=== PATIENT | male | born 1965 | race Caucasian/White ===

== ENCOUNTER 2018-01-17 13:58 | Inpatient (IN) | payer OTHER ==
[~2018-01-17] VITALS: Ht 180.3 cm; Wt 92.9 kg
[~2018-01-17 13:58] MED LIST: NORCO 10-325 T1 EACH PO
--- NOTE | 2018-01-18 10:52 | EKG ---
[facility] [address] [facility] [place] [address] Signed Normal sinus rhythm Possible Left atrial enlargement Borderline ECG When compared with ECG of 24-JUL-2016 10:41, No significant change was found Confirmed by ELLIE KAPLAN MD ([id number]) on 01/18/2018 10:52:40 AM Electronically Signed By: ELLIE KAPLAN MD 01/18/18 1052 PATIENT NAME: DOUG LAWSON CHAN Electrocardiogram DATE OF : 65 PHYSICIAN: ELLIE KAPLAN MD REPORT #: [id number] REPORT IS CONFIDENTIAL AND NOT TO BE RELEASED WITHOUT AUTHORIZATION
== END 2018-01-27 12:20 | disposition home or self-care (01) | DRG 871 ==
LOC: ED 13:58 → CCU 16:20 → MS 01-20 11:02
PROVIDERS: ADMIT Internal Medicine
PROC: 05H533Z Insertion of Infusion Device into Right Subclavian Vein, Percutaneous Approach (ICD-10-PCS; principal; 2018-01-21 14:30)
DX: A41.50 Gram-negative sepsis, unspecified (principal); J18.9 Pneumonia, unspecified organism; J96.01 Acute respiratory failure with hypoxia; E87.1 Hypo-osmolality and hyponatremia; D68.9 Coagulation defect, unspecified; K70.31 Alcoholic cirrhosis of liver with ascites; E80.6 Other disorders of bilirubin metabolism; R65.20 Severe sepsis without septic shock; E83.42 Hypomagnesemia; D53.9 Nutritional anemia, unspecified
CPT/HCPCS: 36415; 36569; 36600; 51702; 71045; 71046; 71260; 76705; 80048; 80053; 80069; 80202; 81001; 81256; 82607; 82728; 82746; 82803; 83540; 83605; 83735; 83880; 84466; 84484; 85025; 85045; 85379; 85610; 85651; 86635; 86703; 86704; 86706; 86709; 86803; 87040; 87070; 87205; 87340; 87449; 87899; 93005; 93010; 94640; 94667; 94668; 94761; 94762; 94799; 96374; 96375; 99285; J0456; J0692; J2405; J2930; J2997; J3370; J3475; J7030; J7040; J7050; J7070; Q9967

== ENCOUNTER 2019-01-12 11:34 | Observation (INO) | payer OTHER ==
[~2019-01-12] VITALS: Ht 180.3 cm; Wt 90.4 kg
--- OUTSIDE RECORDS SUMMARY | ~2019-01-12 | XMS | Encounter Summary ---
Demographics + + + | Address | [address] | | | [place] [address] | + + + | Home Phone | | + + + | Preferred Language | Unknown | + + + | Marital Status | Single | + + + | Jew Affiliation | NON | + + + | Race | White | + + + | Ethnic Group | Not or | + + + Author + + + | Author | [facility] | + + + | Organization | [facility] | + + + | Address | Unknown | + + + | Phone | Unavailable | + + + Support + + +---------+ + | Name | Relationship | Address | Phone | + + +---------+ + | Rikki Pedersen | ECON | Unknown | | + + +---------+ + Care Team Providers + +------+ + | Care Traffic Engineering Director Name | Role | Phone | [...] | Alcoholic | Vimal Arita MD | [address] | | | | | hepatitis | [address] | | | | | with ascites | [address] | | | | | Procedures | [address] | Mailcode: | | | | | MRI | [place], [place] | [address] | | | | | [place] | [address] | [place] | | | | | [facility] | Phone: | Research | | | | | CONTRAST (+ | [phone] | Center | | | | | LIVER MASS) | Fax: | [place], [place] | | | | | [place] [facility], | [phone] | [address] | | | | | ABDOMEN, | | Phone: | | | | | COMBO | | [phone] | | | | | | | Fax: | | | | | | | [phone] | +--------+--------+ + + + + Diagnostic Testing (Urgent) +--------+--------+ + + + + | Status | Reason | Specialty | Diagnoses / | Referred By | Referred To | | | | | Procedures | Contact | Contact | +--------+--------+ + + + + | Closed | | Radiology | Diagnoses | [place], [facility] | | | | | Alcoholic | Vimal Arita MD | [address] | | | | | hepatitis | [address] | [address] | | | | | with ascites | [address] | [address] | | | | | Procedures | [address] | Mailcode: | | | | | MRI | [facility], [place] | [address] | | | | | [place] | [address] | [place] | | | | | [facility] | Phone: | Research | | | | | CONTRAST (+ | [phone] | Center | | | | | [place]) | Fax: | [place], [place] | | | | | [place] [facility], | [phone] | [address] | | | | | ABDOMEN, | | Phone: | | | | | COMBO | | [phone] | | | | | | | Fax: | | | | | | | [phone] | +--------+--------+ + + + + Reason [...] | Alcoholic | Vimal Arita MD | [address] | | | | | hepatitis | [address] | [address] | | | | | with ascites | [address] | [address] | | | | | Procedures | [address] | Mailcode: | | | | | MRI | [place], [place] | [address] | | | | | [place] | [address] | [place] | | | | | [facility] | Phone: | Research | | | | | CONTRAST (+ | [phone] | Center | | | | | L[place]) | Fax: | [place], [place] | | | | | [place] [facility], | [phone] | [address] | | | | | ABDOMEN, | | Phone: | | | | | COMBO | | [phone] | | | | | | | Fax: | | | | | | | [phone] | +--------+--------+ + + + + Encounter Details +--------+ + + + + | Date | Type | Department | Care Team | Description | +--------+ + + + + | 11/19/ | Hospital | Diagnostic Imaging | Vimal Crowe MD | | | 2019 | Encounter | Services at [facility] | [address] | | | | | [address] [facility] | [address] | | | | | [facility] | [place] [address] | | | | | Mailcode: [address] | [phone] | | | | | [address] | | | | | | [place], [place] | | | | | | [address] | | | | | | [phone] | | | +--------+ + + + [...] on file | | + + + as of this encounter Medications at Time of Discharge + + +-------+---------+--------+ + | Medication | Sig. | Disp. | Refills | Start | End Date | | | | | | Date | | + + +-------+---------+--------+ + | furosemide 20 mg | Take 20 mg by mouth | | | | | | oral tablet | once daily. | | | | | + + +-------+---------+--------+ + | lactulose 10 | Take by mouth. | | | | | | gram/15 mL oral | | | | | | | solution | | | | | | + + +-------+---------+--------+ + | spironolactone 50 | Take 50 mg by mouth | | | | | | mg oral tablet | once daily. | | | | | + + +-------+---------+--------+ + as of this encounter Plan of Treatment +--------+---------+ + + + | Date | Type | Specialty | Care Team | Description | +--------+---------+ + + + | 02/25/ | Office | Hepatology | Vimal Crowe MD | | | 2018 | Visit | | [address] | | | | | | [place], | | | | | | [place] [address] | | | | | | [phone] | | | | | | | | +--------+---------+ + + + | 02/25/ | Office | Nephrology | Alicia Canchola, | | | 2018 | Visit | | DO [address] | | | | | | [address] | | | | | | [place], [place] | | | | | | [address] | | | | | | [phone] | | | | | | | | +--------+---------+ + + + as of this encounter Procedures + +--------+ [...] section. | + +--------+ + + + in this encounter Results MRI [facility] CONTRAST (+ LIVER MASS) (11/19/2018 6:54 PM) + + + | Narrative | Performed [...] +---------+ + + CREATININE, POC (11/19/2018 6:06 PM) + +---------+ + + | Component | Value | Ref Range | Performed At | + +---------+ + + | CREATININE, POC | 1.5 (H) | 0.7 - 1.3 mg/dL | [facility] | | | | | [facility] | | | | | [facility] | + +---------+ + + + + | Specimen | + + | Blood - Blood | + + + + + + + | Performing | Address | City/State/Zipcode | Phone Number | | Organization | | | | + + + + + | [facility] | [address] | [place], [place] | | | [facility] | [address] | [address] | | | TESTS | | | | + + + + + in this encounter Visit Diagnoses + + | Diagnosis | + + | Alcoholic hepatitis with ascites | + + | Acute alcoholic hepatitis | + + Administered Medications + +---------+ +-------+------+------+ | Medication Order | MAR | Action | Dose | Rate | Site | | | Action | Date | | | | + +---------+ +-------+------+------+ | gadoterate meglumine (DOTAREM) | IV Push | | 17 mL | | | | 0.5 mmol/mL (376.9 mg/mL) | | 9 18:31 | | | | | injection 17 mL 17 mL (rounded | | PST | | | | | from 17.32 mL = 0.2 mL/kg | | | | | | | 86.6 kg Dosing weight), | | | | | | | intravenous, ONCE, 1 dose, Wed | | | | | | | 11/19/18 at 1900 | | | | | | + +---------+ +-------+------+------+ +---+---+ | | | +---+---+ in this encounter"
--- OUTSIDE RECORDS SUMMARY | ~2019-01-12 | XMS | Encounter Summary ---
Demographics + + + | Address | [address] | | | [place] [address] | + + + | Home Phone [...] Author + + + | Author | [facility] | + + + | Organization | [facility] | + + + | Address | Unknown | + + + | Phone | Unavailable | + + + Support + + +---------+ + | Name | Relationship | Address | Phone | + + +---------+ + | Rikki Pedersen | ECON | Unknown | | + + +---------+ + Care Team Providers + +------+ + | Care Film Writer Name | Role | Phone | + +------+ + | Sharon David MD | PCP | | + +------+ + Encounter Details +--------+------+ + + + | Date | Type | Department | Care Team | Description | +--------+------+ + + + | 11/19/ | Lab | Laboratory at [facility] | | Cirrhosis of liver | | 2019 | | 3rd Floor [address] | | without ascites, | | | | [address] [place], | | unspecified hepatic | | | | [place] [address] | | cirrhosis type | | | | [phone] | | (HCC); CKD (chronic | | | | | | kidney disease) | | | | | | stage 3, GFR 30-59 | | | | | | ml/min (HCC); | | | | | | Alcoholic hepatitis | | | | | | with ascites | +--------+------+ + + + Social History [...] + + + as of this encounter Plan of Treatment +--------+---------+ + + + | Date | Type | Specialty | Care Team | Description | +--------+---------+ + + + | 02/25/ | Office | Hepatology | Vimal Crowe MD | | | 2018 | Visit | | [address] | | | | | | [place], | | | | | | [place] [address] | | | | | | [phone] | | | | | | | | +--------+---------+ + + + | 02/25/ | Office | Nephrology | Alicia Canchola, | | | 2018 | Visit | | DO [address] | | | | | | [address] | | | | | | [place], [place] | | | | | | [address] | | | | | | [phone] | | | | | | | | +--------+---------+ + + + as of this encounter Procedures + +--------+ + + + | Procedure Name | Priori | Date/Time | Associated Diagnosis | Comments | | | ty | | | | + +--------+ + + + | PHOSPHATIDYLETHANOL | Routin | 11/19/2018 | Cirrhosis of liver | Results for this | | (PETH) | e | 4:51 PM | without ascites, | procedure are in the | | | | PST | unspecified hepatic | results section. | | | | | cirrhosis type (HCC) | | | | | | CKD (chronic | | | | | | kidney disease) | | | | | | stage 3, GFR 30-59 | | | | | | ml/min (HCC) | | | | | | Alcoholic hepatitis | | | | | | with ascites | | + +--------+ + + + | CBC (HEMOGRAM) ONLY | Routin | 11/19/2018 | Alcoholic | Results for this | | | e | 4:51 PM | hepatitis with | procedure are in the | | | | PST | ascites | results section. | + +--------+ + + + | [facility] - COMPLETE | Urgent | 11/19/2018 | Alcoholic | Results for this | | METABOLIC SET | | 4:51 PM | hepatitis with | procedure are in the | | | | PST | ascites | results section. | + +--------+ + + + | INR | Routin | 11/19/2018 | Alcoholic | Results for this | | | e | 4:51 PM | hepatitis with | procedure are in the | | | | PST | ascites | results section. | + +--------+ + + + | RENAL FUNCTION SET | Routin | 11/19/2018 | Cirrhosis of liver | Results for this | | (NA,K,CL,CO2,BUN,CRE | e | 4:51 PM | without ascites, | procedure are in the | | AT,GLUC,CA,PHOS,ALB | | PST | unspecified hepatic | results section. | | ) | | | cirrhosis type (HCC) | | | | | | CKD (chronic | | | | | | kidney disease) | | | | | | stage 3, GFR 30-59 | | | | | | ml/min (HCC) | | + +--------+ + + + | CBC ONLY | Routin | 11/19/2018 | Alcoholic | Results for this | | | e | 4:51 PM | hepatitis with | procedure are in the | | | | PST | ascites | results section. | + +--------+ + + + | FERRITIN | Routin | 11/19/2018 | Alcoholic | Results for this | | | e | 4:51 PM | hepatitis with | procedure are in the | | | | PST | ascites | results section. | + +--------+ + + + | IRON AND TIBC, SERUM | Routin | 11/19/2018 | Alcoholic | Results for this | | | e | 4:51 PM | hepatitis with | procedure are in the | | | | PST | ascites | results section. | + +--------+ + + + in this encounter Results PHOSPHATIDYLETHANOL (PETH) (11/19/2018 4:51 PM) + + + + + | Component | Value | Ref Range | Performed At | + + + + + | PHOSPHATIDYLETHANOL | NEGATIVEComment: | NEGATIVE ng/mL | [facility] | | (PETH) | Analyzed compound: PEth | | [facility] - | | | 16:0/18:1.8-qwdlsayid-0- | | [facility] | | | [id number]-phos | | | | | phoethanol.Analysis | | | | | performed by Liquid | | | | | Chromatography | | | | | withTandem Mass | | | | | Spectrometry | | | | | (LC/MS/MS).Detection | | | | | limit: 20 ng/mLPEth | | | | | levels in excess of 20 | | | | | ng/mL are considered | | | | | evidenceof moderate to | | | | | heavy ethanol | | | | | consumption. However, | | | | | the [facility] for Substance | | | | | Abuse Treatment (CSAT) | | | | | advisescaution in | | | | | interpretation and use | | | | | of biomarkers aloneto | | | | | assess alcohol | | | | | use. Results should | | | | | be interpretedin the | | | | | context of all available | | | | | clinical and | | | | | behavioralinformation.Re | | | | | ference: Substance | | | | | Abuse and Mental Health | | | | | ServicesAdministration | | | | | (2012). "The Role of | | | | | Biomarkers in | | | | | theTreatment of Alcohol | | | | | Use Disorders", 2012 | | | | | Revision.Advisory, | | | | | Volume 11, Issue 2.This | | | | | test was developed and | | | | | its performance | | | | | characteristicsdetermine | | | | | d by [employer]. It has not | | | | | been cleared or | | | | | approvedby the Food and | | | | | Drug | | | | | Administration.Performed | | | | | at: [facility] [address] | | | | | [facility] | | | | | [place] [address] | | | + + + + + + + | Specimen | + + | Blood - Blood | + + + + + + + | Performing | Address | City/State/Zipcode | Phone Number | | Organization | | | | + + + + + | [facility] | [address] | [place], [place] | | | [facility] | | [id number] | | + + + + + CBC (HEMOGRAM) ONLY (11/19/2018 4:51 PM) + + + + + | Component | Value | Ref Range | Performed At | + + + + + | WHITE CELL COUNT | 5.42 | 3.50 - 10.80 K/cu mm | [facility] | | | | | SERVICES, CORE | + + + + + | RED CELL COUNT | 2.28 (L) | 4.50 - 6.00 M/cu mm | [facility] | | | | | SERVICES, CORE | + + + + + | HEMOGLOBIN | 7.6 (L) | 13.5 - 17.5 g/dL | [facility] | | | | | SERVICES, CORE | + + + + + | HEMATOCRIT | 21.9 (L) | 41.0 - 53.0 % | [facility] | | | | | SERVICES, CORE | + + + + + | MCV | 96.1 | 80.0 - 100.0 fL | [facility] | | | | | SERVICES, CORE | + + + + + | MCHC | 34.7 | 32.0 - 36.0 g/dL | [facility] | | | | | SERVICES, CORE | + + + + + | RDW SD | 68.3 (H) | 35.1 - 46.3 fL | [facility] | | | | | SERVICES, CORE | + + + + + | PLATELET COUNT | 56 (L)Comment: Giant | 150 - 400 K/cu mm | [facility] | | | platelets present. | | SERVICES, CORE | | | Macroplatelets present. | | | + + + + + | MPV | 9.7 | 9.7 - 12.3 fL | [facility] | | | | | SERVICES, CORE | + + + + + | NRBC% | 0.0 | 0.0 - 0.3 % | [facility] | | | | | SERVICES, CORE | + + + + + | NRBC# | 0.00 | 0.00 - 0.02 K/cu mm | [facility] | | | | | SERVICES, CORE | + + + + + + + | Specimen | + + | Blood - Blood | + + + + + + + | Performing | Address | City/State/Zipcode | Phone Number | | Organization | | | | + + + + + | [facility] | [address] | [place] [address] | | | SERVICES, CORE | [address] | | | + + + + + [facility] - COMPLETE METABOLIC SET (11/19/2018 4:51 PM) + + + + + | Component | Value | Ref Range | Performed At | + + + + + | GLUCOSE, PLASMA | 133 (H) | 70 - 99 mg/dL | [facility] | | (LAB) | | | SERVICES, CORE | + + + + + | BUN, PLASMA (LAB) | 58 (H) | 6 - 20 mg/dL | [facility] | | | | | SERVICES, CORE | + + + + + | CREATININE PLASMA | 1.26 | 0.70 - 1.30 mg/dL | [facility] | | (LAB) | | | SERVICES, CORE | + + + + + | EGFR - | >60 | >60 mL/min | [facility] | | [facility] | | | SERVICES, CORE | + + + + + | EGFR NON | 60 (L) | >60 mL/min | [facility] | | -MACEDONIAN | | | CLAUDIA, CORE | + + + + + | SODIUM, PLASMA (LAB) | 129 (L) | 136 - 145 mmol/L | [facility] | | | | | SERVICES, CORE | + + + + + | POTASSIUM, PLASMA | 5.0 | 3.4 - 5.0 mmol/L | [facility] | | (LAB) | | | SERVICES, CORE | + + + + + | CHLORIDE, PLASMA | 96 (L) | 97 - 108 mmol/L | [facility] | | (LAB) | | | SERVICES, CORE | + + + + + | TOTAL CO2, PLASMA | 26 | 21 - 32 mmol/L | [facility] | | (LAB) | | | SERVICES, CORE | + + + + + | CALCIUM, PLASMA | 9.8 | 8.6 - 10.2 mg/dL | [facility] | | (LAB) | | | SERVICES, CORE | + + + + + | CALCIUM(ALB | 10.4 (H) | 8.6 - 10.2 mg/dL | [facility] | | CORRECTED) | | | SERVICES, CORE | + + + + + | BILIRUBIN TOTAL | 15.7 (H) | 0.3 - 1.2 mg/dL | [facility] | | | | | SERVICES, CORE | + + + + + | TOTAL PROTEIN, | 8.4 (H) | 6.4 - 8.2 g/dL | [facility] | | PLASMA (LAB) | | | SERVICES, CORE | + + + + + | ALBUMIN, PLASMA | 3.2 (L) | 3.5 - 4.7 g/dL | [facility] | | (LAB) | | | SERVICES, CORE | + + + + + | ALK PHOS | 186 (H) | 53 - 128 U/L | [facility] | | | | | SERVICES, CORE | + + + + + | AST(SGOT) | 89 (H) | <=41 U/L | [facility] | | | | | SERVICES, CORE | + + + + + | ALT (SGPT) | 49 | <=60 U/L | [facility] | | | | | SERVICES, CORE | + + + + + | ANION GAP | 7 | 4 - 11 mmol/L | [facility] | | | | | SERVICES, CORE | + + + + + | ANION GAP(ALB | 9 | 4 - 11 mmol/L | [facility] | | CORRECTED) | | | SERVICES, CORE | + + + + + | POTASSIUM CMNT | No Hemo | | [facility] | | | | | SERVICES, CORE | + + + + + | BILI T CMNT | No Hemo | | [facility] | | | | | SERVICES, CORE | + + + + + | AST CMNT | No Hemo | | [facility] | | | | | SERVICES, CORE | + + + + + + + | Specimen | + + | Blood | + + + + + | Narrative | Performed At | + + + | GFR is estimated using the MDRD equation recommended by the | [facility] | | National Kidney Disease Education Program. Estimated GFR | LABORATORY | | Interpretive Information: <60 mL/min/1.73 sq | SERVICES, CORE | | m Chronic Kidney Disease <15 mL/min/1.73 | | | sq m Kidney Failure Estimated GFR greater | | | than 60 mL/min/1.73 sq m is of limited clinical value. The MDRD | | | equation is not valid in the following situations: - Patients under | | | 18 years of age - Severe malnutrition or obesity - Vegetarian diet | | | - Rapidly changing kidney function - Amputees, paraplegics, or other | | | muscle-wasting diseses | | + + + + + + + + | Performing | Address | City/State/Zipcode | Phone Number | | Organization | | | | + + + + + | [facility] | [address] | [place] [address] | | | [address] | [address] | | | + + + + + IRON AND TIBC (11/19/2018 4:51 PM) + +---------+ + + | Component | Value | Ref Range | Performed At | + +---------+ + + | IRON | 210 (H) | 50 - 170 ug/dL | [facility] | | | | | CLA[facility] CORE | + +---------+ + + | IRON BIND CAP | 209 (L) | 240 - 450 ug/dL | [facility] | | | | | [facility] | + +---------+ + + | % SATURATION | 100 (H) | 20 - 50 % | [facility] | | TRANSFERRIN, | | | SERVICES, CORE | + +---------+ + + + + | Specimen | + + | Blood - Blood | + + + + + + + | Performing | Address | City/State/Zipcode | Phone Number | | Organization | | | | + + + + + | [facility] | [address] | [place] [address] | | | SERVICES, ARTIS | [address] | | | + + + + + FERRITIN (11/19/2018 4:51 PM) + + + + + | Component | Value | Ref Range | Performed At | + + + + + | FERRITIN | 3,882 (H)Comment: Male | 50 - 200 ng/mL | [facility] | | | and Female >18 years: | | SERVICES, CORE | | | <20 | | | | | ng/mL: | | | | | Consistant with iron | | | | | deficiency 21-50 | | | | | ng/mL: Possible | | | | | iron deficiency | | | | | 51-99 ng/mL: | | | | | Iron deficiency unlikely | | | | | unless inflammation | | | | | present | | | | | or | | | | | patien | | | | | t >65 years of age | | | | | 100-200 ng/mL: | | | | | Normal, not consistent | | | | | with iron | | | | | deficiency >200 | | | | | ng/mL: If | | | | | transferrin saturation | | | | | >45%, consider | | | | | hemochromatosis | | | + + + + + + + | Specimen | + + | Blood - Blood | + + + + + + + | Performing | Address | City/State/Zipcode | Phone Number | | Organization | | | | + + + + + | [facility] | [address] | [place] [address] | | | [address] | [address] | | | + + + + + INR (11/19/2018 4:51 PM) + + + + + | Component | Value | Ref Range | Performed At | + + + + + | INR | 2.55 (H) | 0.90 - 1.20 INR | [facility] | | | | | [address] | + + + + + + + | Specimen | + + | Blood - Blood | + + + + + | Narrative | Performed At | + + + | INR Therapeutic ranges for full anticoagulation: INR for | [facility] | | Venous Thromboembolism (2.0 - 3.0) INR INR | LABORATORY | | for most patients with mech. valves (2.5 - 3.5) INR | SERVICES, CORE | + + + + + + + + | Performing | Address | City/State/Zipcode | Phone Number | | Organization | | | | + + + + + | [facility] | [address] | [place] [address] | | | SERVICES, CORE | [address] | | | + + + + + RENAL FUNCTION SET (NA,K,CL,CO2,BUN,CREAT,GLUC,CA,PHOS,ALB ) (11/19/2018 4:51 PM) + + + + + | Component | Value | Ref Range | Performed At | + + + + + | GLUCOSE, PLASMA | 134 (H) | 70 - 99 mg/dL | [facility] | | (LAB) | | | SERVICES, CORE | + + + + + | BUN, PLASMA (LAB) | 60 (H) | 6 - 20 mg/dL | [facility] | | | | | SERVICES, CORE | + + + + + | CREATININE PLASMA | 1.32 (H) | 0.70 - 1.30 mg/dL | [facility] | | (LAB) | | | SERVICES, CORE | + + + + + | EGFR - | >60 | >60 mL/min | [facility] | | [facility] | | | CLAUDIA, CORE | + + + + + | EGFR NON | 57 (L) | >60 mL/min | [facility] | | -MACEDONIAN | | | CLAUDIA, CORE | + + + + + | SODIUM, PLASMA (LAB) | 129 (L) | 136 - 145 mmol/L | [facility] | | | | | CLAUDIA, CORE | + + + + + | POTASSIUM, PLASMA | 5.0 | 3.4 - 5.0 mmol/L | [facility] | | (LAB) | | | SERVICES, CORE | + + + + + | CHLORIDE, PLASMA | 95 (L) | 97 - 108 mmol/L | [facility] | | (LAB) | | | SERVICES, CORE | + + + + + | TOTAL CO2, PLASMA | 26 | 21 - 32 mmol/L | [facility] | | (LAB) | | | SERVICES, CORE | + + + + + | CALCIUM, PLASMA | 9.7 | 8.6 - 10.2 mg/dL | [facility] | | (LAB) | | | SERVICES, CORE | + + + + + | CALCIUM(ALB | 10.3 (H) | 8.6 - 10.2 mg/dL | [facility] | | CORRECTED) | | | SERVICES, CORE | + + + + + | ALBUMIN, PLASMA | 3.2 (L) | 3.5 - 4.7 g/dL | [facility] | | (LAB) | | | SERVICES, CORE | + + + + + | PHOSPHORUS, PLASMA | 5.1 (H) | 2.4 - 4.7 mg/dL | [facility] | | (LAB) | | | SERVICES, [facility] | + + + + + | POTASSIUM CMNT | No Hemo | | [facility] | | | | | [facility] | + + + + + | ANION GAP | 8 | 4 - 11 mmol/L | [facility] | | | | | SERVICES, [facility] | + + + + + | ANION GAP(ALB | 10 | 4 - 11 mmol/L | [facility] | | CORRECTED) | | | [facility] | + + + + + + + | Specimen | + + | Blood - Blood | + + + + + | Narrative | Performed At | + + + | GFR is estimated using the MDRD equation recommended by the | [facility] | | National Kidney Disease Education Program. Estimated GFR | LABORATORY | | Interpretive Information: <60 mL/min/1.73 sq | SERVICES, CORE | | m Chronic Kidney Disease <15 mL/min/1.73 | | | sq m Kidney Failure Estimated GFR greater | | | than 60 mL/min/1.73 sq m is of limited clinical value. The MDRD | | | equation is not valid in the following situations: - Patients under | | | 18 years of age - Severe malnutrition or obesity - Vegetarian diet | | | - Rapidly changing kidney function - Amputees, paraplegics, or other | | | muscle-wasting diseses | | + + + + + + + + | Performing | Address | City/State/Zipcode | Phone Number | | Organization | | | | + + + + + | [facility] | [address] | [place] [address] | | | SERVICES, CORE | [address] | | | + + + + + in this encounter Visit Diagnoses + + | Diagnosis | + + | Cirrhosis of liver without ascites, unspecified hepatic cirrhosis type (HCC) | + + | CKD (chronic kidney disease) stage 3, GFR 30-59 ml/min (HCC) | + + | Chronic kidney disease, Stage III (moderate) | + + | Alcoholic hepatitis with ascites | + + | Acute alcoholic hepatitis | + +
--- OUTSIDE RECORDS SUMMARY | ~2019-01-12 | XMS | Encounter Summary ---
Demographics + + + | Address | [address] | | | [place] [address] | + + + | Home Phone [...] Author + + + | Author | [facility] | + + + | Organization | [facility] | + + + | Address | Unknown | + + + | Phone | Unavailable | + + + Support + + +---------+ + | Name | Relationship | Address | Phone | + + +---------+ + | Rikki Pedersen | ECON | Unknown | | + + +---------+ + Care Team Providers + +------+ + | Care Non Destructive Evaluation Specialist Name | Role | Phone | + +------+ + | Sharon David MD | PCP | | + +------+ + Encounter Details +--------+ + + + + | Date | Type | Department | Care Team | Description | +--------+ + + + + | 11/19/ | Procedure | Diagnostic Imaging | | | | 2018 | Pass | Services at [facility] | | | | | | [address] [facility] | | | | | | [facility] | | | | | | Mailcode: [id number] | | | | | | [place] [facility] | | | | | | [place], [place] | | | | | | [address] | | | | | | [phone] | | | +--------+ + + + [...] | | | | | [address] [place], | | | | | | [place] [address] | | | | | | [phone] | | | | | | | | +--------+---------+ + + + | 02/25/ | Office | Nephrology | Alicia Canchola, | | | 2018 | Visit | | DO [address] | | | | | | [address] | | | | | | [place] | | | | | | [address] | | | | | | [phone] | | | | | | | | +--------+---------+ + + + as of this encounter Visit Diagnoses Not on filein this encounter"
--- OUTSIDE RECORDS SUMMARY | ~2019-01-12 | XMS | Clinical Summary ---
Demographics + + + | Address | [address] | | | [place] [address] | + + + | Home Phone | | + + + | Preferred Language | Unknown | + + + | Marital Status | Single | + + + | Anabaptist Affiliation | Unknown | + + + | Race | Unknown | + + + | Ethnic Group | Unknown | + + + Author + + + | Author | [facility] | + + + | Organization | [facility] [facility] | + + + | Address | Unknown | + + + | Phone | Unavailable | + + + Support + + +---------+ + | Name | Relationship | Address | Phone | + + +---------+ + | Kavya Langley | ECON | Unknown | | + + +---------+ + Care Team Providers + +------+ + | Care Conference Reservationist Name | Role | Phone | + +------+ + | Sharon David MD | PP | | + +------+ + Allergies + + + + + + | Active Allergy | Reactions | Severity | Noted | Comments | | | | | Date | | + + + + + + | Doxycycline | Hives | High | 07/17/20 | | | | | | 18 | | + + + + + + Current Medications + + +---------+---------+------+------+-------+ | Prescription | Sig. | Disp. | Refills | Star | End | Statu | | | | | | t | Date | s | | | | | | Date | | | + + +---------+---------+------+------+-------+ | | Take 1 tablet by | 30 | 0 | 10/0 | | Activ | | HYDROcodone-acetamin | mouth every 4 (four) | tablet | | 4/20 | | e | | ophen (NORCO) 5-325 | hours as needed. | | | 18 | | | | MG per tablet | | | | | | | + + +---------+---------+------+------+-------+ | furosemide (LASIX) | Take 1 tablet by | 60 | 11 | 10/0 | 10/0 | Activ | | 20 MG tablet | mouth Two times | tablet | | 4/20 | 4/20 | e | | | daily. | | | 18 | 19 | | + + +---------+---------+------+------+-------+ | midodrine | Take 1 tablet by | 60 | 0 | 10/0 | | Activ | | (PROAMATINE) 5 MG | mouth 2 (two) times | tablet | | 4/20 | | e | | tablet | daily for 30 days. | | | 18 | | | + + +---------+---------+------+------+-------+ | cephALEXin | Take 1 capsule by | 56 | 0 | 10/0 | | Activ | | (KEFLEX) 250 MG | mouth 4 (four) times | capsule | | 4/20 | | e | | capsuleIndications: | daily. | | | 18 | | | | Intra-Abdominal | | | | | | | | Infection | | | | | | | + + +---------+---------+------+------+-------+ + + + + +------+------+-------+ | Hospital, Clinic, or | Ordered | Route | Frequency | Star | End | Statu | | Other Facility | Dose | | | t | Date | s | | Administered | | | | Date | | | | Medication | | | | | | | + + + + +------+------+-------+ | sodium chloride | | IV | Continuous | 10/1 | | Activ | | 0.9 % | | | | 6/20 | | e | | infusionIndications: | | | | 18 | | | | Macrocytic anemia, | | | | | | | | Thrombocytopenia | | | | | | | | (HCC) | | | | | | | + + + + +------+------+-------+ | sodium chloride | 10 mL | IK | PRN | 10/1 | | Activ | | 0.9 % flush 10 | | | | 6/20 | | e | | mLIndications: | | | | 18 | | | | Macrocytic anemia, | | | | | | | | Thrombocytopenia | | | | | | | | (HCC) | | | | | | | + + + + +------+------+-------+ | heparin flush (PF) | 500 Units | IK | PRN | 10/1 | | Activ | | 100 unit/mL | | | | 6/20 | | e | | injection 500 | | | | 18 | | | | UnitsIndications: | | | | | | | | Macrocytic anemia, | | | | | | | | Thrombocytopenia | | | | | | | | (HCC) | | | | | | | + + + + +------+------+-------+ | lidocaine (PF) 2 % | 10 mL | INFILTRA | PRN | 10/1 | | Activ | | injection 10 | | TION | | 6/20 | | e | | mLIndications: | | | | 18 | | | | Macrocytic anemia, | | | | | | | | Thrombocytopenia | | | | | | | | (HCC) | | | | | | | + + + + +------+------+-------+ | heparin (porcine) | 1000 | OTHER | PRN | 10/1 | | Activ | | 1000 UNIT/ML | Units | | | 6/20 | | e | | injection 1,000 | | | | 18 | | | | UnitsIndications: | | | | | | | | Macrocytic anemia, | | | | | | | | Thrombocytopenia | | | | | | | | (HCC) | | | | | | | + + + + +------+------+-------+ | diphenhydrAMINE | 25 mg | IV | Every 4 Hours PRN | 10/1 | | Activ | | (BENADRYL) injection | | | | 6/20 | | e | | 25 mgIndications: | | | | 18 | | | | Macrocytic anemia, | | | | | | | | Thrombocytopenia | | | | | | | | (HCC) | | | | | | | + + + + +------+------+-------+ | ondansetron | 4 mg | IV | Every 6 Hours PRN | 10/1 | | Activ | | (ZOFRAN) injection 4 | | | | 6/20 | | e | | mgIndications: | | | | 18 | | | | Macrocytic anemia, | | | | | | | | Thrombocytopenia | | | | | | | | (HCC) | | | | | | | + + + + +------+------+-------+ | flumazenil | 0.2 mg | IV | Once PRN | 10/1 | | Activ | | (ROMAZICON) | | | | 6/20 | | e | | injection 0.2 | | | | 18 | | | | mgIndications: | | | | | | | | Macrocytic anemia, | | | | | | | | Thrombocytopenia | | | | | | | | (HCC) | | | | | | | + + + + +------+------+-------+ | midazolam (VERSED) | 0.5-1 mg | IV | Every 5 Min PRN | 10/1 | | Activ | | injection 0.5-1 | | | | 6/20 | | e | | mgIndications: | | | | 18 | | | | Macrocytic anemia, | | | | | | | | Thrombocytopenia | | | | | | | | (HCC) | | | | | | | + + + + +------+------+-------+ Active Problems + + + | Problem | Noted Date | + + + | Splenomegaly | 07/21/2018 | + + + | Pulmonary hypertension (moderate/severe) | 07/19/2018 | + + + | Alcoholic cirrhosis of liver with ascites (HCC) | 07/17/2018 | + + + | Abnormal blood coagulation profile | 07/17/2018 | + + + | ETOH abuse | 07/17/2018 | + + + | Hyperbilirubinemia | 07/17/2018 | + + + | Macrocytic anemia | 07/17/2018 | + + + | Thrombocytopenia (HCC) | 07/17/2018 | + + + | Hyponatremia | 07/17/2018 | + + + | Multiple open wounds of lower leg | 07/17/2018 | + + + | KAR (acute kidney injury) (HCC) | 07/17/2018 | + + + Immunizations + + + + | Name | Dates Previously Given | Next Due | + + + + | Pneumococcal | 07/18/2018 (Deferred: - patient not ready | | | Polysaccharide | to take at this time.) | | | 23-valent | | | + + + + Social History + +-------+ +--------+------+ | Tobacco Use | Types | Packs/Day | Years | Date | | | | | Used | | + +-------+ +--------+------+ | Never Smoker | | | | | + +-------+ +--------+------+ + +---+---+---+ | Smokeless Tobacco: | | | | | Current User | | | | + +---+---+---+ + + | Tobacco Cessation: Ready to Quit: No | | Comments: pt reports "1 chew a day." | + + + + +---------+ + | Alcohol Use | Drinks/We | oz/Week | Comments | | | ek | | | + + +---------+ + | Yes | | | 1 beer or 1 mixed drink per day. "I used to | | | | | drink a couple beers 2-3 a day." | + + +---------+ + + + + | Sex Assigned at | Date Recorded | | | | + + + | Not on file | | + + + Last Filed Vital Signs + + + + | Vital Sign | Reading | Time Taken | + + + + | Blood Pressure | 160/60 | 09/15/2018 10:36 AM PST | + + + + | Pulse | 93 | 09/15/2018 10:36 AM PST | + + + + | Temperature | 36.6 C (97.8 F) | 09/15/2018 10:36 AM PST | + + + + | Respiratory Rate | 18 | 09/15/2018 10:36 AM PST | + + + + | Oxygen Saturation | 100% | 09/15/2018 10:36 AM PST | + + + + | Inhaled Oxygen | - | - | | Concentration | | | + + + + | Weight | 103 kg (227 lb) | 09/15/2018 10:36 AM PST | + + + + | Height | 177.2 cm (5' 9.75") | 09/15/2018 10:36 AM PST | + + + + | Body Mass Index | 32.81 | 09/15/2018 10:36 AM PST | + + + + Plan of Treatment +--------+---------+ + + + | Date | Type | Specialty | Care Team | Description | +--------+---------+ + + + | 03/18/ | Office | | Diego Ferrell MD | | | 2019 | Visit | | [address] | | | | | | [place] | | | | | | [phone] | | | | | | | | | | | | [place], | | | | | | [employer] [address] | | | | | | [address] | | | | | | [place] [address] | | | | | | [phone] | | | | | | | | +--------+---------+ + + + + + + + + | Health Maintenance | Due Date | Last Done | Comments | + + + + + | Vaccine: | | | | | Dtap/Tdap/Td (1 - | 4 | | | | Tdap) | | | | + + + + + | Vaccine: | | | | | Pneumococcal 19-64 | 4 | | | | (PPSV23 only) Medium | | | | | Risk (1 of 1 - | | | | | PPSV23) | | | | + + + + + | Vaccine: Zoster (1 | | | | | of 2) | 5 | | | + + + + + | Vaccine: Influenza | | | | | (#1) | 8 | | | + + + + + | Colon Cancer | | 07/20/2018 | | | Screening | 8 | | | | (Colonoscopy) | | | | + + + + + Results Not on filefrom Last 3 Months Insurance + +--------+ +------+-------+ + | Payer | Benefi | Subscriber | Type | Phone | Address | | | t Plan | ID | | | | | | / | | | | | | | Group | | | | | + +--------+ +------+-------+ + | MEDICAID | [place] | [id number] | | | [address] | | | [place] | | | | [place] | | | [place] | | | | [address] | | | IRS AGENT | | | | | + +--------+ +------+-------+ + + +--------+ +--------+ + + | Guarantor Name | Accoun | Relation to | Date | Phone | Billing Address | | | t Type | Patient | of | | | | | | | | | | + +--------+ +--------+ + + | STEFFEN LAWSON | Person | Self [birth year] Home: | [address] | | | al/Fam | | 1965 | [phone] [place] | | | moi | | | [phone] | [place] [address] | + +--------+ +--------+ + +
--- OUTSIDE RECORDS SUMMARY | ~2019-01-12 | XMS | Encounter Summary ---
Demographics + + + | Address | [address] | | | [place] [address] | + + + | Home Phone [...] Author + + + | Author | [facility] | + + + | Organization | [facility] | + + + | Address | Unknown | + + + | Phone | Unavailable | + + + Support + + +---------+ + | Name | Relationship | Address | Phone | + + +---------+ + | Rikki Pedersen | ECON | Unknown | | + + +---------+ + Care Team Providers + +------+ + | Care Industrial Staff Nurse Name | Role | Phone | [...] | | | | | MRI | [place], [place] | [address] | | | | | [place] | [address] | [place] | | | | | PHY [facility] | Phone: | Research | | | | | CONTRAST (+ | [phone] | Center | | | | | [place]) | Fax: | [place], [place] | | | | | [facility], | [phone] | [address] | | | | | ABDOMEN, | | Phone: | | | | | COMBO | | [phone] | | | | | | | Fax: | | | | | | | [phone] | +--------+--------+ + + + + Diagnostic Testing (Routine) + +--------+ + + + + | Status | Reason | Specialty | Diagnoses / | Referred By | Referred To | | | | | Procedures | Contact | Contact | + +--------+ + + + + | New Request | | Radiology | Diagnoses | [place], | | | | | | Alcoholic | Vimal Arita MD | | | | | | hepatitis | [address] | | | | | | with ascites | [address] | | | | | | Procedures | [address] | | | | | | MRI | [place], [place] | | | | | | [place] | [address] | | | | | | PHY [facility]WO | Phone: | | | | | | CONTRAST (+ | [phone] | | | | | | [place]) | Fax: | | | | | | | [phone] | | + +--------+ + + + + Reason for Visit + + + | Reason | Comments | + + + | New patient | | | consultation | | + + + Consultation (Routine) + +--------+ + + + + | Status | Reason | Specialty | Diagnoses / | Referred By | Referred To | | | | | Procedures | Contact | Contact | + +--------+ + + + + | Authorized | | Hepatology | Diagnoses | David, | [place], | | | | | Cirrhosis | [place] | Vimal Arita MD | | | | | of liver | MD Lei | [address] | | | | | (HCC) | [facility] | [address] | | | | | | Hospital | [place], | | | | | | [address] | [place] [address] | | | | | | [address] | Phone: | | | | | | [place], | [phone] | | | | | | [place] [address] | Fax: | | | | | | Phone: | [phone] | | | | | | [phone] | | | | | | | Fax: | | | | | | | [phone] | | + +--------+ + + + + Encounter Details +--------+---------+ + + + | Date | Type | Department | Care Team | Description | +--------+---------+ + + + | 11/19/ | Office | Digestive Health | Vimal Crowe MD | Alcoholic hepatitis | | 2019 | Visit | Center at [facility]th | [address] | with ascites | | | | Floor [address] | [address] [place], | (Primary Dx) | | | | Ave Mailcode: [address] | [place] [address] | | | | | [facility] | [phone] | | | | | and Healing, 6th | | | | | | Floor [place], [place] | | | | | | [address] | | | | | | [phone] | | | +--------+---------+ + + + [...] + + + as of this encounter Last Filed Vital Signs + + + + | Vital Sign | Reading | Time Taken | + + + + | Blood Pressure | 158/67 | 11/19/2018 3:14 PM PST | + + + + | Pulse | 78 | 11/19/2018 3:14 PM PST | + + + + | Temperature | 36.3 C (97.4 F) | 11/19/2018 3:14 PM PST | + + + + | Respiratory Rate | - | - | + + + + | Oxygen Saturation | - | - | + + + + | Inhaled Oxygen | - | - | | Concentration | | | + + + + | Weight | 86.6 kg (191 lb) | 11/19/2018 3:14 PM PST | + + + + | Height | 180.3 cm (5' 11") | 11/19/2018 3:14 PM PST | + + + + | Body Mass Index | 26.64 | 11/19/2018 3:14 PM PST | + + + + in this encounter Instructions Patient Instructions - Vimal Crowe MD - 11/19/2018 3:15 PM PST1. Labs today on or 2. MRI/MRCP ordered 3. Follow up renal recs- diuretics per renal 4. Continue complete alcohol abstinence and recommend joining [facility] Progress Notes Vimal Crowe MD - 11/19/2018 3:15 PM PSTFormatting of this note may be different from t he original. HEPATOLOGY NEW PATIENT VISIT 11/19/[address] [facility] [address] [place] [address]: [phone] RE: Steffen Duran : [address] David: I had the pleasure of seeing Steffen Duran for consultation in the [facility] at [facility] today. History and physical examination was performed. [...] Warmest regards. 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 operator [facility] Hepatologyin this encounter Plan of Treatment +--------+---------+ + + + | Date | Type | Specialty | Care Team | Description | +--------+---------+ + + + | 02/25/ | Office | Hepatology | Vimal Crowe MD | | | 2018 | Visit | | [address] | | | | | | [address] [place], | | | | | | [place] [address] | | | | | | [phone] | | | | | | | | +--------+---------+ + + + | 02/25/ | Office | Nephrology | Alicia Canchola, | | | 2018 | Visit | | DO [address] | | | | | | [address] | | | | | | [place], [place] | | | | | | [address] | | | | | | [phone] | | | | | | | | +--------+---------+ + + + + +--------+ + + | Name | Priori | Associated Diagnoses | Order Schedule | | | ty | | | + +--------+ + + | MRI [place] CONTRAST | Routin | Alcoholic | Expected: | | (+ [place]) | e | hepatitis with | 11/19/2018, Expires: | | | | ascites | 12/19/2019 | + +--------+ + + as of this encounter Results MRI [place] [...] | | | + +---------+ + + [facility] - COMPLETE METABOLIC SET (11/19/2018 4:51 PM) [...] (H) | 6 - 20 mg/dL | [facility] | | | | | SERVICES, CORE | + + + + + | CREATININE PLASMA | 1.26 | 0.70 - 1.30 mg/dL | [facility] | | (LAB) | | | SERVICES, CORE | + + + + + | EGFR - | >60 | >60 mL/min | [facility] | | [place] | | | [place], [facility] | + + + + + | EGFR NON | 60 (L) | >60 mL/min | [facility] | | -[place] | | | [facility], [facility] | + + + + + | [...] AST CMNT | No Hemo | | [facility] | | | | | SERVICES, CORE | + + + + + + + | Specimen | + + | Blood | + + + + + | Narrative | Performed At | + + + | GFR is estimated using the MDRD equation recommended by the | [facility] | | National Kidney Disease Education Program. [...] | + + + + + | [facility] | [address] | [place] [address] | | | [place] | [address] [...] SERVICES, CORE | + +---------+ + + | IRON BIND CAP | 209 (L) | 240 - 450 ug/dL | [facility] | | | | | SERVICES, CORE | + +---------+ + + | % [...] | [facility] | [address] [facility] | [place] [address] | | | SERVICES, CORE | [address] | | | + + + + + FERRITIN (11/19/2018 4:51 PM) + + + + + | Component | Value | Ref Range | Performed At | + + + + + | FERRITIN | 3,882 (H)Comment: Male | 50 - 200 ng/mL | [facility] | | | and Female >18 [...] | + + + + + | [facility] | [address] | [place] [address] | | | SERVICES, ARTIS | [address] | | | + + + + + INR (11/19/2018 4:51 PM) + + + + + | Component | Value | Ref Range | Performed At | + + + + + | INR | 2.55 (H) | 0.90 - 1.20 INR | [facility] | | | | | SERVICES, CORE | + + + + + + + | Specimen | + + | Blood - Blood | + + + + + | Narrative | Performed At | + + + | INR Therapeutic ranges for full anticoagulation: INR for | [facility] | | Venous Thromboembolism (2.0 - 3.0) INR INR | LABORATORY | | for most patients with mech. valves (2.5 - 3.5) INR | [facility] | + + + + + + + + | Performing | Address | City/State/Zipcode | Phone Number | | Organization | | | | + + + + + | [facility] | [address] | [place] [address] | | | [place] | [address] | | | + + + + + in this encounter Visit Diagnoses + + | Diagnosis | + + | Alcoholic hepatitis with ascites - Primary | + + | Acute alcoholic hepatitis | + +
--- OUTSIDE RECORDS SUMMARY | ~2019-01-12 | XMS | Clinical Summary ---
Demographics + + + | Address | [address] | | | [place] [address] | + + + | Home Phone [...] Team Providers + +------+ + | Care Experimental Box Tester Name | Role | Phone | + +------+ + | Sharon David MD | PP | | + +------+ + Source Comments [facility] is fully live on both [facility] and [facility] InPatient.Formerly [facility] Allergies + + + + + + | Active Allergy | Reactions | Severity | Noted | Comments | | | | | Date | | + + + + + + | Doxycycline | Rash | | 11/19/19 | | | | | | 19 | | + + + + + + Current Medications + + +-------+---------+------+------+-------+ | Prescription | Sig. | Disp. | Refills | Star | End | Statu | | | | | | t | Date | s | | | | | | Date | | | + + +-------+---------+------+------+-------+ | furosemide 20 mg | Take 20 mg by mouth | | | | | Activ | | oral tablet | once daily. | | | | | e | + + +-------+---------+------+------+-------+ | lactulose 10 | Take by mouth. | | | | | Activ | | gram/15 mL oral | | | | | | e | | solution | | | | | | | + + +-------+---------+------+------+-------+ | spironolactone 50 | Take 50 mg by mouth | | | | | Activ | | mg oral tablet | once daily. | | | | | e | + + +-------+---------+------+------+-------+ Active Problems Not on file Encounters +--------+ + + + + | Date | Type | Specialty | Care Team | Description | +--------+ + + + + | 12/24/ | MyChart | | Vimal Crowe MD | RE: MRI Results | | 2018 | Encounter | | | | +--------+ + + + + | 12/03/ | Documentati | | Alicia Canchola, | | | 2018 | on | | DO | | +--------+ + + + + | 11/19/ | Hospital | | Vimal Crowe MD | | | 2018 | Encounter | | | | +--------+ + + + + | 11/19/ | Lab | | | Cirrhosis of liver | | 2018 | | | | without ascites, | | | | | | unspecified hepatic | | | | | | cirrhosis type | | | | | | (HCC); CKD (chronic | | | | | | kidney disease) | | | | | | stage 3, GFR 30-59 | | | | | | ml/min (HCC); | | | | | | Alcoholic hepatitis | | | | | | with ascites | +--------+ + + + + | 11/19/ | Office | | Vimal Crowe MD | Alcoholic hepatitis | | 2019 | Visit | | | with ascites | | | | | | (Primary Dx) | +--------+ + + + + | 11/19/ | Office | | Alicia Canchola, | Chronic kidney | | 2018 | Visit | | DO | disease (CKD), stage | | | | | | IV (severe) (HCC) | | | | | | (Primary Dx); | | | | | | Cirrhosis of liver | | | | | | without ascites, | | | | | | unspecified hepatic | | | | | | cirrhosis type | | | | | | (HCC); CKD (chronic | | | | | | kidney disease) | | | | | | stage 3, GFR 30-59 | | | | | | ml/min (HCC) | +--------+ + + + + | 11/19/ | Procedure | | | | | 2019 | Pass | | | | +--------+ + + [...] Saturation | 100% | 11/19/2018 12:59 PM PST | + + + + [...] PM PST | + + + + Plan of Treatment +--------+---------+ + + + | Date | Type | Specialty | Care Team | Description | +--------+---------+ + + + | 02/25/ | Office | | Vimal Crowe MD | | | 2018 | Visit | | [address] | | | | | | [place], | | | | | | [place] [address] | | | | | | [phone] | | | | | | | | +--------+---------+ + + + | 02/25/ | Office | | Alicia Canchola, | | | 2018 | Visit | | DO [address] | | | | | | [address] | | | | | | [place], [place] | | | | | | [address] | | | | | | [phone] | | | | | | | | +--------+---------+ + + + + + + + + | Health Maintenance | Due Date | Last Done | Comments | + + + + + | Pneumococcal (Adult) | | | | | (1 of 3 - PCV13) | 4 | | | + + + + + | Influenza (Flu) | | | | | vaccination (#1) | 8 | | | + [...] POC | | PST | IV (severe) ([facility]) | results section. | + +--------+ + + + | PROTEIN, URINE | Routin | 11/19/2018 | Chronic kidney | Results for this | | | e | 1:55 PM | disease (CKD), stage | procedure are in the | | | | PST | IV (severe) ([facility]) | results section. | + +--------+ + + + | CREATININE, URINE | Routin | 11/19/2018 | Chronic kidney | Results for this | | | e | 1:55 PM | disease (CKD), stage | procedure are in the | | | | PST | IV (severe) ([facility]) | results section. | + +--------+ + + + from Last 3 Months Results MRI CHOLANGIOGRAPHY WWO CONTRAST (+ LIVER [...] [facility] | | | | | [facility] [place] [facility] | | | | | CARE TESTS | + +---------+ + + + + | Specimen | + + | Blood - Blood | + + + + + + + | Performing | Address | City/State/Zipcode | Phone Number | | Organization | | | | + + + + + | [facility] | [address] | [place], [place] | | | [place] [facility] | [address] | [address] | | | TESTS | | | | + + + + + PHOSPHATIDYLETHANOL (PETH) (11/19/2018 4:51 PM) + + + + + | Component | Value | Ref Range | Performed At | + + + + + | PHOSPHATIDYLETHANOL | NEGATIVEComment: | NEGATIVE ng/mL | [facility] | | (PET) | Analyzed compound: PEth | | [facility] - | | | 16:0/18:1.5-xflcvznbs-1- | | [facility] | | | eyauut-zw-ckicufe-3-phos | | | | | phoethanol.Analysis | [...] | | | | at: [facility] [address] | | | | | [facility] | | | | | [place] [address] | | | + + + + + + + | Specimen | + + | Blood - Blood | + + + + + + + | Performing | Address | City/State/Zipcode | Phone Number | | Organization | | | | + + + + + | [facility] | [address] | [place], [place] | | | [facility] | | [address] | | + + + + + CBC (HEMOGRAM) ONLY (11/19/2018 4:51 PM) + + + + + | Component | Value | Ref Range | Performed At | + + + + + | WHITE CELL COUNT | 5.42 | 3.50 - 10.80 K/cu mm | [facility] | | | | | SERVICES, CORE | + + + + + | RED CELL COUNT | 2.28 (L) | 4.50 - 6.00 M/cu mm | [facility] | | | | | SERVICES, CORE | + + + + + | HEMOGLOBIN | 7.6 (L) | 13.5 - 17.5 g/dL | [facility] | | | | | SERVICES, CORE | + + + + + | HEMATOCRIT | 21.9 (L) | 41.0 - 53.0 % | [facility] | | | | | SERVICES, CORE | + + + + + | MCV | 96.1 | 80.0 - 100.0 fL | [facility] | | | | | SERVICES, CORE | + + + + + | MCHC | 34.7 | 32.0 - 36.0 g/dL | [facility] | | | | | SERVICES, CORE | + + + + + | RDW SD | 68.3 (H) | 35.1 - 46.3 fL | [facility] | | | | | SERVICES, CORE | + + + + + | PLATELET COUNT | 56 (L)Comment: Giant | 150 - 400 K/cu mm | [facility] | | | platelets present. | | SERVICES, CORE | | | Macroplatelets present. | | | + + + + + | MPV | 9.7 | 9.7 - 12.3 fL | [facility] | | | | | SERVICES, CORE | + + + + + | NRBC% | 0.0 | 0.0 - 0.3 % | [facility] | | | | | SERVICES, CORE | + + + + + | NRBC# | 0.00 | 0.00 - 0.02 K/cu mm | [facility] | | | | | SERVICES, CORE | + + + + + + + | Specimen | + + | Blood - Blood | + + + + + + + | Performing | Address | City/State/Zipcode | Phone Number | | Organization | | | | + + + + + | [facility] | [address] | [place] [address] | | | SERVICES, CORE | [address] | | | + + + + + [facility] - COMPLETE METABOLIC SET (11/19/2018 4:51 PM) + + + + + | Component | Value | Ref Range | Performed At | + + + + + | GLUCOSE, PLASMA | 133 (H) | 70 - 99 mg/dL | [facility] | | (LAB) | | | CLAUDIA, CORE | + [...] >60 mL/min | [facility] | | UGANDAN | | | SERVICES, CORE | + + + + + | EGFR NON | 60 (L) | >60 mL/min | [facility] | | -UGANDAN | | | SERVICES, CORE | + [...] LABORATORY | | (LAB) | | | CLAUDIA, CORE | + + + + + | CALCIUM, PLASMA | 9.8 | 8.6 - 10.2 mg/dL | [facility] | | (LAB) | | | CLAUDIA, CORE | + [...] POTASSIUM CMNT | No Hemo | | [facility] | | | | | SERVICES, CORE | + + + + + | BILI T CMNT | No Hemo | | [facility] | | | | | SERVICES, CORE | + + + + + | AST CMNT | No Hemo | | [facility] | | | | | SERVICES, CORE | + + + + + + + | Specimen | + + | Blood | + + + + + | Narrative | Performed At | + + + | GFR is estimated using the MDRD equation recommended by the | [facility] | | National Kidney Disease Education Program. [...] | + + + + + | [facility] | [address] | [place] [address] | | | SERVICES, CORE | [address] | | | + + + + + INR (11/19/2018 4:51 PM) + + + + + | Component | Value | Ref Range | Performed At | + + + + + | INR | 2.55 (H) | 0.90 - 1.20 INR | [facility] | | | | [...] | + + + + + | [facility] | [address] | [place] [address] | | | SERVICES, CORE | [address] [...] LABORATORY | | (LAB) | | | CLAUDIA, CORE | + + + + + | EGFR - | >60 | >60 mL/min | [facility] | | [place] | | | CLAUDIA, CORE | + + + + + | EGFR NON | 57 (L) | >60 mL/min | [facility] | | -UGANDAN | | | CLAUDIA, CORE | + [...] | | (LAB) | | | SERVICES, [facility] | + + + + + | PHOSPHORUS, PLASMA | 5.1 (H) | 2.4 - 4.7 mg/dL | [facility] | | (LAB) | | | [facility] | + + + + + | POTASSIUM CMNT | No Hemo | | [facility] | | | | | SERVICES, [facility] | + + + + + | ANION GAP | 8 | 4 - 11 mmol/L | [facility] | | | | | SERVICES, [facility] | + + + + + | ANION GAP(ALB | 10 | 4 - 11 mmol/L | [facility] | | CORRECTED) | | | SERVICES, CORE | + + + + + + + | Specimen | + + | Blood - Blood | + + + + + | Narrative | Performed At | + + + | GFR is estimated using the MDRD equation recommended by the | [facility] | | National Kidney Disease Education Program. [...] | + + + + + | [facility] | [address] | [place] [address] | | | ARTIS TAY[address]OR | [address] | | | + + + + + FERRITIN (11/19/2018 4:51 PM) + + + + + | Component | Value | Ref Range | Performed At | + + + + + | FERRITIN | 3,882 (H)Comment: Male | 50 - 200 ng/mL | [facility] | | | and Female [...] | + + + + + | [facility] | [address] | [place] [address] | | | SERVICES, ARTIS | [address] | | | + + + + + IRON AND TIBC (11/19/2018 4:51 PM) + +---------+ + + | Component | Value | Ref Range | Performed At | + +---------+ + + | IRON | 210 (H) | 50 - 170 ug/dL | [facility] | | | | | SERVICES, CORE | + +---------+ + + | IRON BIND CAP | 209 (L) | 240 - 450 ug/dL | [facility] | | | | | SERVICES, CORE | + +---------+ + + | % SATURATION | 100 (H) | 20 - 50 % | [facility] | | TRANSFERRIN, | | | SERVICES, CORE | + +---------+ + + + + | Specimen | + + | Blood - Blood | + + + + + + + | Performing | Address | City/State/Zipcode | Phone Number | | Organization | | | | + + + + + | [facility] | [address] | [place] [address] | | | SERVICES, ARTIS | [address] | | | + + + + + UA 10 DIP, POC (11/19/2018 1:56 PM) + + + + + | Component | Value | Ref Range | Performed At | + + + + + | COLOR (UA DIP), POC | Yudy | | [facility] | | | | | [facility] [facility] [facility] | | | | | CARE TESTS | + + + + + | APPEARANCE (UA DIP), | Other | | [facility] | | POC | | | [facility] [facility] | | | | | CARE TESTS | + + + + + | LEUKOCYTES (UA DIP), | Negative | Negative | [facility] | | POC | | | [facility] [facility] | | | | | CARE TESTS | + + + + + | NITRITES (UA DIP), | Negative | Negative | [facility] | | POC | | | [facility] POINT OF | | | | | CARE TESTS | + + + + + | UROBILINOGEN (UA | 1.0 | 0.2 - 1.0 E.U./dL | [facility] | | DIP), POC | | | [facility] POINT OF | | | | | CARE TESTS | + + + + + | PROTEIN (UA DIP), | Negative | Neg - Trace mg/dL | [facility] | | POC | | | [facility] | | | | | CARE TESTS | + + + + + | PH (UA DIP), POC | 5.5 | 5.0 - 8.0 | [facility] | | | | | [facility] [facility] [facility] | | | | | CARE TESTS | + + + + + | BLOOD (UA DIP), POC | Large (A) | Negative | [facility] | | | | | [facility] POINT OF | | | | | CARE TESTS | + + + + + | SPECIFIC GRAVITY (UA | 1.010 | 1.005 - 1.030 | [facility] | | DIP), POC | | | [facility] POINT OF | | | | | CARE TESTS | + + + + + | KETONES (UA DIP), | Negative | Negative mg/dL | [facility] | | POC | | | [facility] POINT OF | | | | | CARE TESTS | + + + + + | BILIRUBIN (UA DIP), | Negative | Negative | [facility] | | POC | | | [facility] POINT OF | | | | | CARE TESTS | + + + + + | GLUCOSE (UA DIP), | Negative | Negative - Trace | [facility] | | POC | | mg/dL | [facility] | | | | | CARE TESTS | + + + + + + + | Specimen | + + | Urine - Urine | + + + + + + + | Performing | Address | City/State/Zipcode | Phone Number | | Organization | | | | + + + + + | [facility] | [address] | [place], [place] | | | [facility] CARE | [address] | [address] | | | TESTS | | | | + + + + + PROTEIN, URINE (11/19/2018 1:55 PM) + + + + + | Component | Value | Ref Range | Performed At | + + + + + | PROTEIN CONC URINE | 6 | mg/dL | [facility] | | | | | SERVICES, CORE | + + + + + | PROTEIN/CREATININE | 0.13 (H) | <0.10 mg/mg | [facility] | | RATIO | | | [facility] | + + + + + | URINE INTERVAL | Random | | [facility] | | | | | SERVICES, CORE | + + + + + | URINE VOLUME | Spot | | [facility] | | | | | SERVICES, CORE | + + + + + + + | Specimen | + + | Urine - Urine | + + + + + | Narrative | Performed At | + + + | Protein Reference Range: 50-80 mg/24hrAt Rest <150 | [facility] | | mg/24hrAmbulatory, normal level of physical activity <250 | LAB[facility]ATORY | | mg/24hrStrenuous physical activity Normal values based on 24 [...] [facility] | [address] | [place] [address] | | | SERVICESARTIS | [address] | | | + + + + + CREATININE, URINE (11/19/2018 1:55 PM) + +--------+ + + | Component | Value | Ref Range | Performed At | + +--------+ + + | CREATININE CONC UR | 46.40 | mg/dL | [facility] | | | | | SERVICES CORE | + +--------+ + + | URINE INTERVAL | Random | | [facility] | | | | | SERVICESARTIS | + +--------+ + + | URINE VOLUME | Spot | | [facility] | | | | | SERVICES, CORE | + +--------+ + + + + | Specimen | + + | Urine - Urine | + + + + + [...] | + + + + + | [facility] | [address] | [place] [address] | | | SERVICES, CORE | [address] | | | + + + + + from Last 3 Months Insurance + +--------+ +--------+-------+---------+ | Payer | Benefi | Subscriber | Type | Phone | Address | | | t Plan | ID | | | | | | / | | | | | | | Group | | | | | + +--------+ +--------+-------+---------+ | [employer] | [employer] | xxxxxxxx | Medica | | | | | [place] | | id | | | | | [place] | | | | | + +--------+ +--------+-------+---------+ + +--------+ +--------+ + + | Guarantor Name | Accoun | Relation to | Date | Phone | Billing Address | | | t Type | Patient | of | | | | | | | | | | + +--------+ +--------+ + + | DOUG LAWSON | Person | Self [birth year] | Home: | [address] | | | al/Fam | | 1965 | [phone] [address]ef[address] | | | moi | | | [phone] | [place] [id number] | + +--------+ +--------+ + +
--- OUTSIDE RECORDS SUMMARY | ~2019-01-12 | XMS | Encounter Summary ---
Demographics + + + | Address | [address] | | | [place] [address] | + + + | Home Phone [...] Author + + + | Author | [facility] | + + + | Organization | [facility] | + + + | Address | Unknown | + + + | Phone | Unavailable | + + + Support + + +---------+ + | Name | Relationship | Address | Phone | + + +---------+ + | Rikki Pedersen | ECON | Unknown | | + + +---------+ + Care Team Providers + +------+ + | Care Shoulder Boner Name | Role | Phone | + +------+ + | Sharon David MD | PCP | | + +------+ + Encounter Details +--------+ + + + + | Date | Type | Department | Care Team | Description | +--------+ + + + + | 12/03/ | Documentati | Nephrology & | Alicia Canchola, | | | 2019 | on | Hypertension at [facility] | DO [address] | | | | | [address] | [address] | | | | | [facility] | [place], [place] | | | | | Mailcode: [id number] | [address] | | | | | [place], | [phone] | | | | | [address] | | | | | | [place], [place] | | | | | | [address] | | | | | | [phone] | | | +--------+ + + + [...] | | | | | [address] [facility] | | | | | | [place] [address] | | | | | | [phone] | | | | | | | | +--------+---------+ + + + | 02/25/ | Office | Nephrology | Alicia Canchola, | | | 2019 | Visit | | DO [address] | | | | | | [address] | | | | | | [place], [place] | | | | | | [address] | | | | | | [phone] | | | | | | | | +--------+---------+ + + + as of this encounter Visit Diagnoses Not on filein this encounter"
--- OUTSIDE RECORDS SUMMARY | ~2019-01-12 | XMS | Encounter Summary ---
Demographics + + + | Address | [address] | | | [place] [address] | + + + | Home Phone [...] Author + + + | Author | [facility] | + + + | Organization | [facility] | + + + | Address | Unknown | + + + | Phone | Unavailable | + + + Support + + +---------+ + | Name | Relationship | Address | Phone | + + +---------+ + | Rikki Pedersen | ECON | Unknown | | + + +---------+ + Care Team Providers + +------+ + | Care Glass Cleaning Machine Tender Name | Role | Phone | [...] | 2019 | Encounter | Center at [facility] | [address] | | | | | Floor [address] | [address] [place], | | | | | Ave Mailcode: [address] | [place] [address] | | | | | [facility] | [phone] | | | | | and Healing, 6th | | | | | | Floor [place], [place] | | | | | | [address] | | | | | | [phone] | | | +--------+ + + + [...] | | | | | [address] [place], | | | | | | [place] [address] | | | | | | [phone] | | | | | | | | +--------+---------+ + + + | 02/25/ | Office | Nephrology | Alicia Canchola, | | | 2018 | Visit | | DO [address] | | | | | | [address] | | | | | | [place], [place] | | | | | | [address] | | | | | | [phone] | | | | | | | | +--------+---------+ + + + as of this encounter Visit Diagnoses Not on filein this encounter"
--- OUTSIDE RECORDS SUMMARY | ~2019-01-12 | XMS | Encounter Summary ---
Demographics + + + | Address | [address] | | | [place] [address] | + + + | Home Phone [...] Author + + + | Author | [facility] | + + + | Organization | [facility] | + + + | Address | Unknown | + + + | Phone | Unavailable | + + + Support + + +---------+ + | Name | Relationship | Address | Phone | + + +---------+ + | Rikki Pedersen | ECON | Unknown | | + + +---------+ + Care Team Providers + +------+ + | Care Plug Assembler Name | Role | Phone | + +------+ + | Sharon David MD | PCP | | + +------+ + Reason for Visit + + + | Reason | Comments | + + + | New patient | CKD in the setting of Liver cirrhosis and chronic anemia | | consultation | | + + + Intake Referral (Urgent) + +--------+ + + + + | Status | Reason | Specialty | Diagnoses / | Referred By | Referred To | | | | | Procedures | Contact | Contact | + +--------+ + + + + | Authorized | | Nephrology | Diagnoses | David, | Nht Nephro | | | | | Chronic | Lohith | Ppv [address] | | | | | kidney | MD Lei | [address] | | | | | disease, | [facility] | [facility] | | | | | stage 3 | Hospital | Mailcode: | | | | | (moderate) | [address] | | | | | [address] | Physicians | | | | | | [place], | [place], | | | | | | [place] [address] | [address] | | | | | | Phone: | [place], [place] | | | | | | [phone] | [address] | | | | | | Fax: | Phone: | | | | | | [phone] | [phone] | | | | | | | Fax: | | | | | | | [phone] | + +--------+ + + + + [...] disease (CKD), stage | | | | [address] | [address] | IV (severe) (HCC) | | | | [facility] | [place], [place] | (Primary Dx); | | | | Mailcode: [address]262 | [address] | Cirrhosis of liver | | | | Physicians [place], | [phone] | without ascites, | | | | [address] | | unspecified hepatic | | | | [place], [place] | | cirrhosis type | | | | [address] | | (HCC); CKD (chronic | | | | [phone] | | kidney disease) | | | [...] Pressure | 124/54 | 11/19/2018 12:59 PM PST | + + + + | Pulse | 84 | 11/19/2018 12:59 PM PST | + + + + | Temperature | 36.3 C (97.3 F) | 11/19/2018 12:59 PM PST | + [...] (191 lb 4.8 | 11/19/2018 12:59 PM PST | | | oz) | | + + + + | Height | 180.3 cm (5' 11") | 11/19/2018 12:59 PM PST | + + + + | Body Mass Index | 26.68 | 11/19/2018 12:59 PM PST | + + + + in this encounter Instructions Patient Instructions - Alicia Canchola DO - 11/19/2018 1:00 PM PSTLabs today: UA with microscopic and dip UPC today Renal profile Labs in 2 weeks Follow up in 3 months. in this encounter Progress Notes Alicia Canchola DO - 11/19/2018 1:00 PM PSTFormatting of this note may be different from the original. [facility] Division of Nephrology and Hypertension Clinic Note [...] melissa l not be a candidate for HAND FLESHER. Patient verbalized understanding as well as family. Addendum: got a called from hepatology if ok to do MRI with ROXANNA. Based on his recent GFR, h jayce should be ok to received ROXANNA. If [...] 30,000 her hematology Followed by Dr Quevedo ([facility]) Hyponatremia: Hypervolemic hyponatremia. Na: 131; Potasium; 4.7 (Nov 17 2018) Increase lasix 20 mg BID Repeat renal panel in 2 weeks. Alicia Canchola DO, 11/19/2018 Patient seen and staffed with attending of record, Dr. Jarrett Thank you for this consultation. Please feel free to contact me with any questions or comme nts you might have. NEPHROLOGY & HYPERTENSION AT [facility] [address] [facility] Mailcode: [address] [place] [address] Chief Complaint:No chief complaint on file. 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 He lives in [facility] [place] away from [place]. He lives by himself and has sister and m other who have been the support system but fly from [place] back and forth to check on him. [...] Exercise: No Caffeine: yes frequency: Worked on [employer] for years Surgical History: None Family History: Cancer Grandmother: Stomach cancer Prostate Hospitalization/Major Diagnostic Procedure: adapted from PCP note. SAH: Multi Lobar pneumonia with acute respiratory Failure with hypoxia with severe sepsis. Incidental diagnosis of liver cirrhosis [facility]: Severe anemia. Acute kidney injury. 6 units of pRBCs. Splenic sequestratio n 07/17-07/24/18 [facility]: EGD and colonoscopy: no signs of bleeding. Echocardiogram.: primary hypert ension with right ventricular enlargement. Lasix 20 BID. Vasculitis work up negative. Venous ulcers changed to Keflex. Creatinine 1.6. [facility]: US abdomen-Liver steatosis. Right pleural effusion. [...] 7.5 x 20.8 cm. Associated attestation - Jarrett, Ayaan, MD - 11/20/2018 10:43 AM PSTI personally [...] proteinuria on previous UA FU 3 m in this encounter Plan of Treatment +--------+---------+ + + + | Date | Type | Specialty | Care Team | Description | +--------+---------+ + + + | 02/25/ | Office | Hepatology | Vimal Crowe MD | | | 2018 | Visit | | [address] | | | | | | [address], | | | | | | [place] [address] | | | | | | [phone] | | | | | | | | +--------+---------+ + + + | 02/25/ | Office | Nephrology | Alicia Canchola, | | | 2019 | Visit | | DO [address] [facility] | | | | | | [facility] | | | | | | [place], [place] | | | | | | [address] | | | | | | [phone] | | | | | | | | +--------+---------+ + + + + +--------+ + + | Name | Priori | Associated Diagnoses | Order Schedule | | | ty | | | + +--------+ + + | RENAL FUNCTION SET | Routin | Cirrhosis of liver | Expected: 12/03/2018 | | (NA,K,CL,CO2,BUN,CREAT,GLUC,CA,PH | e | without ascites, | (Approximate), | | OS,ALB ) | | unspecified hepatic | Expires: 12/19/2019 | | | | cirrhosis type (HCC) | | | | | CKD (chronic | | | | | kidney disease) | | | | | stage 3, GFR 30-59 | | | | | ml/min (HCC) | | + +--------+ + + | SODIUM TOTAL, URINE | Routin | Cirrhosis of liver | Expected: 11/19/2018 | | | e | without ascites, | (Approximate), | | | | unspecified hepatic | Expires: 12/19/2019 | | | | cirrhosis type (HCC) | | | | | CKD (chronic | | | | | kidney disease) | | | | | stage 3, GFR 30-59 | | | | | ml/min (HCC) | | + +--------+ + + as of this encounter Procedures [...] POC | | PST | IV (severe) ([facility]) | results section. | + +--------+ + + + | PROTEIN, URINE | Routin | 11/19/2018 | Chronic kidney | Results for this | | | e | 1:55 PM | disease (CKD), stage | procedure are in the | | | | PST | IV (severe) ([facility]) | results section. | + +--------+ + + + | CREATININE, URINE | Routin | 11/19/2018 | Chronic kidney | Results for this | | | e | 1:55 PM | disease (CKD), stage | procedure are in the | | | | PST | IV (severe) ([facility]) | results section. | + +--------+ + + + in this encounter Results RENAL FUNCTION SET [...] >60 mL/min | [facility] | | SUDANESE | | | SERVICES, CORE | + + + + + | EGFR NON | 57 (L) | >60 mL/min | [facility] | | -SUDANESE | | | SERVICES, CORE | + [...] the MDRD equation recommended by the | [facility] | | National Kidney Disease Education Program. [...] | + + + + + | [facility] | [address] [facility] | [place] [address] | | | [facility] | [address] | | | + + + + + UA 10 DIP, POC (11/19/2018 1:56 PM) + + + + + | Component | Value | Ref Range | Performed At | + + + + + | COLOR (UA DIP), POC | [facility] | | [facility] | | | [...] | Negative - Trace | [facility] | | POC | | mg/dL | [...] [facility] | [address] | [place], [place] | | | [facility] | [address] | [address] | | | TESTS | | | [...] LABORATORY | | RATIO | | | CLAUD[facility], CORE | + [...] + + | [facility] | [address] [facility] | [place] [address] | | | [facility] | [address] | | | + + + + + CREATININE, URINE (11/19/2018 1:55 PM) + +--------+ + + | Component | Value | Ref Range | Performed At | + +--------+ + + | CREATININE CONC UR | 46.40 | mg/dL | [facility] | | | | | [facility] | + +--------+ + + | URINE INTERVAL | Random | | [facility] | | | | | SERVICES, CORE | + +--------+ + + | [...] | + + + + + | [employer] | [address] | [place] [address] | | | SERVICES, CORE | [address] | | | + + + + + in this encounter Visit Diagnoses + + | Diagnosis | + + | Chronic kidney disease (CKD), stage IV (severe) (HCC) - Primary | + + | Chronic kidney disease, Stage IV (severe) | + + | Cirrhosis of liver without ascites, unspecified hepatic cirrhosis type (HCC) | + + | CKD (chronic kidney disease) stage 3, GFR 30-59 ml/min (HCC) | + + | Chronic kidney disease, Stage III (moderate) | + +
[~2019-01-12 11:34] MED LIST changes: +CONSTULOSE10 GM/15 M PO; +FUROSEMIDE40 MG PO; +KLOR-CON M2020 MEQ PO; +LASIX80 MG PO; +SPIRONOLACTONE100 MG PO
--- NOTE | 2019-01-12 15:00 | NUR ---
PT HAS ARRIVED TO CCU INTO ROOM 126 VIA WHEELCHAIR A M/S STATUS PATIENT AT THIS TIME. PT ARRIVES ORIENTED BUT DROWSY. SOMEWHAT GARBLED SPEECH BUT ABLE TO ANSWER ORIENTATION QUESTIONS. PT JAUNDICED WITH ICTERIC EYES; PITTING EDEMA THROUGHOUT WELL ASCITES/DISTENDED ABDOMEN. DENIES ANY PAIN, N/V OR SOB.
--- NOTE | 2019-01-12 15:15 | NUR ---
DR. KAPLAN AT THE BEDSIDE SEEING THE PT.
--- NOTE | 2019-01-12 15:50 | NUR ---
20 GAUGE PIV PLACED IN LEFT FOREARM BY THIS RN WITHOUT COMPLICATION- FLUSHES WELL WITH GOOD BLOOD RETURN.
--- NOTE | 2019-01-12 17:00 | NUR ---
PRE BLOOD TRANSFUSION VS COMPLETED AND STABLE. ALL TRANSFUSION CHECK OFF ITEMS COMPLETE. BLOOD VERIFIED WITH 2ND RN- BLOOD STARTED AT 1700.
--- NOTE | 2019-01-12 17:15 | NUR ---
15 MINUTE VS STABLE IS PT'S CONDITION. IV SITE REMAINS WNL AND BLOOD TRANSFUSING WITHOUT ANY COMPLICATION. WILL CONTINUE TO CLOSELY MONITOR. HE DENIES ANY PAIN, SOB OR ANY OTHER SIGN OF REACTION.
--- NOTE | 2019-01-12 18:17 | NUR ---
PT SITTING UP EATING HIS DINNER. BLOOD CONTINUES TO TRANSFUSE WITHOUT ISSUES INTO HIS LEFT PIV. HE DENIES ANY NEEDS AT THIS TIME. CALL LIGHT WITHIN REACH. WILL CONTINUE TO MONITOR.
--- NOTE | 2019-01-12 18:55 | NUR ---
PT HAS EATEN 100% OF HIS DINNER. BLOOD CONTINUES TO TRANSFUSE AT THIS TIME. PT RESTING IN BED WITH EYES CLOSED. CALL LIGHT WITHIN REACH. BED ALARM TURNED ON. WILL CONTINUE TO MONITOR.
--- NOTE | 2019-01-12 19:30 | NUR ---
SHIFT REPORT RECEIVED FROM JAYDE FERNANDEZ. PT IS CURRENTLY SITTING UP IN BED AND WATCHING TV. BLOOD CURRENTLY INFUSING WNL, IV SITE AND DRESSING INTACT. PT DENIES NEEDS AT THIS TIME, CALL LIGHT WITHIN REACH.
--- NOTE | 2019-01-12 19:50 | NUR ---
FIRST UNIT OF PRBC'S COMPLETED, NO S/SX OF TRANSFUSION REACTION NOTED, VITAL SIGNS STABLE. PT UP TO SIDE OF BED, VOIDED 500ML KYRA URINE IN URINAL. PT DENIES DIZZINESS UPON STANDING. 4+ PITTING EDEMA NOTED IN BLE. SKIN APPEARS JAUNDICE, OTHERWISE ASSESSMENT IS BENIGN. CALL LIGHT REMAINS WITHIN REACH.
--- NOTE | 2019-01-12 20:55 | NUR ---
ATTEMPTED TO GET 2ND UNIT OF PRBC'S AT 1999, BUT THERE WAS AN ERROR ON THE SLIP AND SO THE PLANT TOUR GUIDE NEEDED TO PREPARE A NEW UNIT. 2ND UNIT STARTED AT 2039. THIS RN REMAINED IN ROOM FOR THE FIRST 15 MINUTES, NO S/SX OF TRANSFUSION REACTION. VITAL SIGNS STABLE. PT DENIES NEEDS AT THIS TIME. WILL CONTINUE TO MONITOR.
--- NOTE | 2019-01-12 23:50 | NUR ---
2ND UNIT OF PRBC'S COMPLETED AT 2318. 3RD UNIT STARTED AT 2335. THIS RN REMAINS AT BEDSIDE UNTIL THIS TIME, 15 MINUTE VITAL SIGNS STABLE, NO S/SX OF TRANSFUSION REACTION OBSERVED. ASSESSMENT COMPLETED, NO CHANGES. PT PROVIDED WITH FRESH ICE WATER, JELLO, AND A COOKIE PER REQUEST. URINAL EMPTIED OF 375ML KYRA URINE. PT DENIES FURTHER REQUESTS AT THIS TIME, CALL LIGHT REMAINS WITHIN REACH.
--- NOTE | 2019-01-13 00:09 | NUR ---
PT UP TO SIDE OF BED, VOIDED 400ML KYRA URINE AND THEN RETURNED TO BED. NO FURTHER REQUESTS AT THIS TIME.
--- NOTE | 2019-01-13 02:38 | NUR ---
3RD UNIT OF PRBC'S COMPLETED AT 0210. 4TH UNIT STARTED AT 0219. THIS RN REMAINED AT BEDSIDE FOR FIRST 15 MINUTES, NO S/SX OF TRANSFUSION REACTION OBSERVED. VITAL SIGNS STABLE. IV SITE AND DRESSING INTACT. PT PROVIDED WITH FRESH ICE WATER, NO OTHER REQUESTS AT THIS TIME, CALL LIGHT WITHIN REACH.
--- NOTE | 2019-01-13 04:16 | NUR ---
PT CURRENTLY SLEEPING, NO APPARENT DISTRESS. RESPIRATIONS EVEN AND UNLABORED, SPO2:98% ON RA, HR:72. BLOOD CONTINUES TO TRANSFUSE WNL. 450ML KYRA URINE EMPTIED FROM URINAL. WILL ALLOW FOR REST AND CONTINUE TO MONITOR.
--- NOTE | 2019-01-13 05:10 | NUR ---
4TH UNIT OF PRBC'S COMPLETED AT THIS TIME. IV SALINE LOCKED, PATENT, DRESSING INTACT. NO S/SX OF TRANSFUSION REACTION OBSERVED. ASSESSMENT COMPLETED, NO CHANGES FROM PREVIOUS ASSESSMENTS. PT DENIES REQUESTS AT THIS TIME. LAB NOTIFIED TO DRAW CBC IN 1 HOUR.
--- NOTE | 2019-01-13 06:10 | NUR ---
LAB HERE TO OBTAIN SAMPLE FOR THIS MORNING'S CBC. URINAL EMPTIED OF 425ML KYRA URINE. FRESH ICE WATER AND PUDDING PROVIDED PER REQUEST.
--- NOTE | 2019-01-13 07:45 | NUR ---
PT SITTING UP IN BED WATCHING TV. A/O X4, AWAKE, NO C/O PAIN, N/V OR SOB. PT STATES HIS READINESS FOR DC. PT STATES HE WANTS TO TAKE AM MEDICATIONS ONCE HE GETS HOME SO I WILL NOT BE GIVING THEM. HE ALSO REFUSES BREAKFAST AT THIS TIME AND WOULD LIKE TO EAT AFTER HE GETS HOME. PT DENIES ANY NEEDS AT THIS TIME. CALL LIGHT WITHIN REACH. WILL CONTINUE TO MONITOR.
[2019-01-13] MEDS ORDERED: SPIRONOLACTONE50 MG PO (08:20)
[2019-01-13] MEDS ORDERED: FUROSEMIDE20 MG PO (08:21)
--- NOTE | 2019-01-13 09:12 | NUR ---
MED REC COMPLETE
== END 2019-01-13 09:20 | disposition home or self-care (01) ==
LOC: LAB 11:34 → MS 13:12 → CCU 14:22
PROVIDERS: ADMIT Internal Medicine
DX: D64.9 Anemia, unspecified (principal); D61.818 Other pancytopenia; K72.90 Hepatic failure, unspecified without coma; K70.30 Alcoholic cirrhosis of liver without ascites; D73.1 Hypersplenism; N18.3 Chronic kidney disease, stage 3 (moderate); F17.220 Nicotine dependence, chewing tobacco, uncomplicated; Z79.899 Other long term (current) drug therapy; Z88.1 Allergy status to other antibiotic agents
CPT/HCPCS: 36415; 36430; 80053; 85025; 85027; 86850; 86900; 86901; 86920; G0378; P9016

== ENCOUNTER 2019-11-28 12:14 | Emergency (ER) | payer OTHER ==
[~2019-11-28] VITALS: Ht 180.3 cm; Wt 90.9 kg
[~2019-11-28 12:14] MED LIST changes: +FUROSEMIDE20 MG PO; +SPIRONOLACTONE50 MG PO
--- OUTSIDE RECORDS SUMMARY | 2019-11-28 12:16 | XMS ---
PreManage Notification: DOUG LAWSON Security Chief Medical Director Events No recent Security Events currently on file CRITERIA MET - History of Sepsis CARE PROVIDERS LEGACY PATIENT Primary Care [employer] PHONE: Unknown Yoel has no Care Guidelines for this patient. EPrak VIS[facility] COUNT (12 MO.) [facility] 2 [facility] [place] 1 [facility] TOTAL 4 NOTE: Visits indicate total known visits. ED/UCC VISIT TRACKING (12 MO.) 11/28/2019 12:14 [facility] [place] TYPE: Emergency COMPLAINT: - BACK PAIN 10/05/2019 09:37 [facility] TYPE: Emergency DIAGNOSES: 83133. referral 75973. Liver transplant status 80160. Disorder involving the immune mechanism, unspecified 25735. Other fatigue 07/17/2019 10:15 [facility] [place] TYPE: Emergency DIAGNOSES: - Hepatic failure, unspecified without coma - CONFUSED - Alcoholic cirrhosis of liver with ascites - Coagulation defect, unspecified 04/21/2019 14:59 [facility] TYPE: Emergency DIAGNOSES: 76267. [facility] [phone]. Chronic kidney disease, unspecified 68661. Hepatorenal syndrome 74550. Alcoholic cirrhosis of liver with ascites 01849. Paroxysmal atrial fibrillation 48767. Supraventricular tachycardia INPATIENT VISIT TRACKING (12 MO.) 10/12/2019 13:28 [facility] TYPE: Transplant DIAGNOSES: 10526. Liver tx failure 23132. Unspecified severe protein-calorie malnutrition 07/17/2019 18:13 [facility] TYPE: Nephrology DIAGNOSES: 90648. liver failure and AMS 59133. Alcoholic cirrhosis of liver with ascites 70639. Supraventricular tachycardia 58034. Diabetes due to underlying condition w oth complication 04/21/2019 14:59 [facility] TYPE: Internal Medicine DIAGNOSES: 14605. Alcoholic cirrhosis of liver with ascites . Supraventricular tachycardia 18576. Hepatorenal syndrome 34408. Chronic kidney disease, unspecified 06859. Paroxysmal atrial fibrillation 01/12/2019 13:12 [facility] [place] TYPE: Observation COMPLAINT: - BLOOD TRANSFUSION DIAGNOSES: - Nicotine dependence, chewing tobacco, uncomplicated - Hepatic failure, unspecified without coma - Alcoholic cirrhosis of liver without ascites - Hypersplenism - Other intermediate designer (current) drug therapy - 1 Chronic kidney disease, stage 3 (moderate) - Other pancytopenia - Anemia, unspecified - Allergy status to other antibiotic agents status [email or web address]
[2019-11-28] MEDS ORDERED: OXYCODONE HCL5 MG PO (12:53)
[2019-11-28] MEDS ORDERED: MAPAP500 MG PO (12:54)
[2019-11-28] MEDS ORDERED: PROGRAF1 MG PO (13:04)
[2019-11-28] MEDS ORDERED: MEPRON750 MG/5 M PO (13:05)
[2019-11-28] MEDS ORDERED: CELLCEPT250 MG PO (13:05)
[2019-11-28] MEDS ORDERED: AMIODARONE HCL200 MG PO (13:07)
[2019-11-28] MEDS ORDERED: METOPROLOL TART25 MG PO (13:08)
[2019-11-28] MEDS ORDERED: MIRTAZAPINE30 MG PO (13:08)
[2019-11-28] MEDS ORDERED: AMARYL1 MG PO (13:09)
[2019-11-28] MEDS ORDERED: LANTUS100 UNITS/ SUB-Q (13:09)
[2019-11-28] MEDS ORDERED: FLUDROCORTISON0.1 MG PO (13:10)
[2019-11-28] MEDS ORDERED: ASPIRIN325 MG PO (13:10)
[2019-11-28] MEDS ORDERED: MAGNESIUM250 MG PO (13:11)
[2019-11-28] MEDS ORDERED: ZARXIO300 MCG/0. SUB-Q (13:13)
== END 2019-11-28 13:06 | disposition home or self-care (01) ==
LOC: ED 12:14
DX: M62.830 Muscle spasm of back (principal); E11.9 Type 2 diabetes mellitus without complications; Z88.1 Allergy status to other antibiotic agents; Z79.899 Other long term (current) drug therapy
CPT/HCPCS: 99283

== ENCOUNTER 2020-07-29 09:52 | Emergency (ER) | payer MEDICARE, OTHER ==
[~2020-07-29] VITALS: Ht 180.3 cm; Wt 90.9 kg
--- OUTSIDE RECORDS SUMMARY | ~2020-07-29 | XMS | Encounter Summary ---
Demographics + + + | Address | [address] | | | [place] [address] | + + + | Home Phone | | + + + | Preferred Language | Unknown | + + + | Marital Status | Single | + + + | Mu-Ism Affiliation | NON | + + + | Race | White | + + + | Ethnic Group | Not or | + + + Author + + + | Author | [facility] | + + + | Organization | [facility] | + + + | Address | Unknown | + + + | Phone | Unavailable | + + + Support + + + + + | Name | Relationship | Address | Phone | + + + + + | Doreen Manley | ECON | [address] | | | | | [place] | | | | | [address] | | + + + + + Care Team Providers + +------+ + | Care Waist Pleater Name | Role | Phone | + +------+ + | Sharon David MD | PCP | | + +------+ + Reason for Visit + + + | Reason | Comments | + + + | Liver Transplant | Trasition of care education | | Follow Up | | + + + Encounter Details +--------+ + + + + | Date | Type | Department | Care Team | Description | +--------+ + + + + | 11/17/ | Documentati | Clinical | Cecille Brunner RN | Liver Transplant | | 2020 | on | Transplant Services | [address] | Follow Up (Trasition | | | | [address] | [place], | care education) | | | | [place], | [place] [address] | | | | | [place] [address] | | | | | | [phone] | | | +--------+ + + + + Social History + +-------+ +--------+------+ | Tobacco Use | Types | Packs/Day | Years | Date | | | | | Used | | + +-------+ +--------+------+ | Never Smoker | | | | | + +-------+ +--------+------+ + +------+---+ + | Smokeless Tobacco: | Chew | | Quit: | | Former User | | | 04/20/20 | | | | | 19 | + +------+---+ + + + +---------+ + | Alcohol Use | Drinks/Week | oz/Week | Comments | + + +---------+ + | No | | | | + + +---------+ + + + + + | Alcohol Habits | Answer | Date Recorded | + + + + | How often do you have a drink containing | Never | 04/21/2019 | | alcohol? | | | + + + + | How many drinks containing alcohol do you | Not asked | | | have on a typical day when you are | | | | drinking? | | | + + + + | How often do you have six or more drinks on | Not asked | | | one occasion? | | | + + + + + + + | Sex Assigned at | Date Recorded | | | | + + + | Not on file | | + + + documented as of this encounter Functional Status + + + + | Functional Status | Response | Date of Assessment | + + + + | Because of a physical, mental, or emotional | Yes | 10/13/2019 | | condition, do you have serious difficulty | | | | doing errands alone such as visiting the | | | | doctor? | | | + + + + + + + + | Cognitive Status | Response | Date of Assessment | + + + + | Because of a physical, mental, or emotional | Yes | 10/13/2019 | | condition, do you have serious difficulty | | | | concentrating, remembering, or making | | | | decisions? (5 years old or older) | | | + + + + documented as of this encounter Miscellaneous Notes Telephone Encounter - Cecille Brunner RN - 11/17/2019 12:48 PM PSTMet w/ Donell at 11/17/19 clini c appointment and provided "Transition from Surgical Team to Hepatology Team" guidebook. Rev iewed highlights from book and discussed post-liver transplant care and general healthcare m anagement moving forward. All questions answered at this time. documented in this encou nter Plan of Treatment +--------+ + + + + | Date | Type | Specialty | Care Team | Description | +--------+ + + + + | 08/08/ | Telephone-S | Nephrology | Angélica Chao, | | | 2019 | cherohini | | [address] | | | | | | [address] | | | | | | [place], [place] | | | | | | [address] | | | | | | [phone] | | | | | | | | +--------+ + + + + | 09/27/ | Telephone-S | Liver Transplant | Vimal Crowe MD | | 2019 | cheduled | | [address] | | | | | | [address] | | | | | [place] [address] | | | | | | [phone] | | | | | | | | +--------+ + + + + | 10/03/ | Appointment | Cardiology | | | | 2019 | | | | | +--------+ + + + + | 10/03/ | Office | Cardiology | Cyril Samuel | | | 2019 | Visit | | MD Patricia [address] [facility] | | | | | | [address] | | | | | | [facility] | | | | | | [address] | | | | | | [phone] | | | | | | | | +--------+ + + + + documented as of this encounter Visit Diagnoses Not on filedocumented in this encounter
--- OUTSIDE RECORDS SUMMARY | ~2020-07-29 | XMS | Encounter Summary ---
Demographics + + + | Address | [address] | | | [place] [address] | + + + | Home Phone | | + + + | Preferred Language | Unknown | + + + | Marital Status | Single | + + + | Druze Affiliation | NON | + + + | Race | White | + + + | Ethnic Group | Not or | + + + Author + + + | Author | [facility] | + + + | Organization | [facility] | + + + | Address | Unknown | + + + | Phone | Unavailable | + + + Support + + + + + | Name | Relationship | Address | Phone | + + + + + | Doreen Manley | ECON | [address] | | | | | [place] | | | | | [address] | | + + + + + Care Team Providers + +------+ + | Care Svp Marketing Name | Role | Phone | + +------+ + | Sharon David MD | PCP | | + +------+ + Encounter Details +--------+ + + + + | Date | Type | Department | Care Team | Description | +--------+ + + + + | 04/05/ | Abstract | Clinical | Vimal Crowe MD | | | 2019 | | Transplant Services | [address] | | | | | [address] | [address] [place], | | | | | [place], | [place] [address] | | | | | [place] [address] | [phone] | | | | | [phone] | | | +--------+ + + + [...] + + documented as of this encounter Plan of Treatment +--------+ + + + + | Date | Type | Specialty | Care Team | Description | +--------+ + + + + | 08/08/ | Telephone-S | Nephrology | Angélica Chao, | | | 2019 | [place] | | [address] | | | | | | [address] | | | | | | [place], [place] | | | | | | [address] | | | | | | [phone] | | | | | | | | +--------+ + + + + | 09/27/ | Telephone-S | Liver Transplant | Vimal Crowe MD | | | 2019 | [place] | | [address] | | | | | | [address] [place], | | | | | | [place] [address] | | | | | | [phone] | | | | | | | | +--------+ + + + + | 10/03/ | Appointment | Cardiology | | | | 2019 | | | | | +--------+ + + + + | 10/03/ | Office | Cardiology | Cyril Samuel | | | 2019 | Visit | Darren Gomez MD [address] | | | | | | [address] | | | | | | [place], [place] | | | | | | [address] | | | | | | [phone] | | | | | | | | +--------+ + + + + documented as of this encounter Procedures + +--------+ + + + | Procedure Name | Priori | Date/Time | Associated Diagnosis | Comments | | | ty | | | | + +--------+ + + + | LIVER TRANSPLANT | Routin | 04/04/2020 | | Results for this | | POST PANEL (EXT | e | 10:04 AM | | procedure are in the | | RESULTS) | | PDT | | results section. | + +--------+ + + + documented in this encounter Results LIVER TRANSPLANT POST PANEL (EXT RESULTS) (04/04/2020 10:04 AM PDT) + + + + + + | Component | Value | Ref Range | Performed | Pathologist | | | | | At | Signature | + + + + + + | SODIUM, | 137 | mmol/L | [facility] | | | [facility] | | | LAB - | | | (LAB) | | | [place] | | + + + + + + | POTASSIUM, | 4.7 | mmol/L | [facility] | | | PLASMA | | | LAB - | | | (LAB) | | | [place] | | + + + + + + | CHLORIDE, | 100 | mmol/L | [facility] | | | PLASMA | | | LAB - | | | (LAB) | | | [place] | | + + + + + + | TOTAL CO2, | 28 | mmol/L | [facility] | | | PLASMA | | | LAB - | | | (LAB) | | | [place] | | + + + + + + | GLUCOSE, | 233 (A) | 65 - 110 mg/dL | [facility] | | | PLASMA | | | LAB - | | | (LAB) | | | [place] | | + + + + + + | BUN, PLASMA | 34 | mg/dL | [facility] | | | (LAB) | | | LAB - | | | | | | [place] | | + + + + + + | CREATININE | 2.07 | mg/dL | [facility] | | | PLASMA | | | LAB - | | | (LAB) | | | [place] | | + + + + + + | CALCIUM, | 9.3 | mg/dL | [facility] | | | PLASMA | | | LAB - | | | (LAB) | | | [place] | | + + + + + + | PHOSPHORUS, | 4.1 | mg/dL | [facility] | | | PLASMA | | | LAB - | | | (LAB) | | | [place] | | + + + + + + | MAGNESIUM,P | 1.9 | mg/dL | [facility] | | | LASMA | | | LAB - | | | | | | [place] | | + + + + + + | TOTAL | 6.4 | g/dL | [facility] | | | PROTEIN, | | | LAB - | | | PLASMA | | | [place] | | | (LAB) | | | | | + + + + + + | ALBUMIN, | 4.0 | g/dL | [facility] | | | PLASMA | | | LAB - | | | (LAB) | | | [place] | | + + + + + + | BILIRUBIN | 0.5 | Transcutaneous | [facility] | | | TOTAL | | Bilirubinometer | LAB - | | | | | | [place] | | + + + + + + | BILIRUBIN | 0.1 | mg/dL | [facility] | | | DIRECT | | | LAB - | | | | | | [place] | | + + + + + + | ALK PHOS | 80 | U/L | [facility] | | | | | | LAB - | | | | | | [place] | | + + + + + + | AST(SGOT) | 16 | U/L | [facility] | | | | | | LAB - | | | | | | [place] | | + + + + + + | ALT (SGPT) | 18 | U/L | [facility] | | | | | | LAB - | | | | | | [place] | | + + + + + + | URIC ACID, | 6.4 | mg/dL | [facility] | | | PLASMA | | | LAB - | | | (LAB) | | | [place] | | + + + + + + | WHITE CELL | 5.0 | K/cu mm | [facility] | | | COUNT | | | LAB - | | | | | | [place] | | + + + + + + | HEMATOCRIT | 32.4 | % | [facility] | | | | | | LAB - | | | | | | [place] | | + + + + + + | HEMOGLOBIN | 11.1 (A) | 13.5 - 17.5 | [facility] | | | | | g/dL | LAB - | | | | | | [place] | | + + + + + + | PLATELET | 118 | K/cu mm | [facility] | | | COUNT | | | LAB - | | | | | | [place] | | + + + + + + | TACROLIMUS | 5.1 | ng/mL | [facility] | | | ([address]) | | | LAB - | | | | | | [place] | | + + + + + + | VITAMIN D | 30 | ng/mL | [facility] | | | 25 HYDROXY | | | LAB - | | | | | | [place] | | + + + + + + + + | Specimen | + + | Blood - Blood | | (substance) | + + + + + | Narrative | Performed At | + + + | | | + + + + + + + + | Performing | Address | City/State/Zipcode | Phone Number | | Organization | | | | + + + + + | [facility] - | [address] | [place] | [phone] | | [place] | | | | + + + + + documented in this encounter Visit Diagnoses Not on filedocumented in this encounter"
--- OUTSIDE RECORDS SUMMARY | ~2020-07-29 | XMS | Encounter Summary ---
Demographics + + + | Address | [address] | | | [place] [address] | + + + | Home Phone | | + + + | Preferred Language | Unknown | + + + | Marital Status | Single | + + + | Rastafarian Affiliation | NON | + + + | Race | White | + + + | Ethnic Group | Not or | + + + Author + + + | Author | [facility] | + + + | Organization | [facility] | + + + | Address | Unknown | + + + | Phone | Unavailable | + + + Support + + + + + | Name | Relationship | Address | Phone | + + + + + | Doreen Manley | ECON | [address] | | | | | [place] | | | | | [address] | | + + + + + Care Team Providers + +------+ + | Care Rigger Apprentice Name | Role | Phone | + +------+ + | Sharon David MD | PCP | | + +------+ + Reason for Referral Diagnostic Testing (Urgent) +--------+--------+ + + + + | Status | Reason | Specialty | Diagnoses / | Referred By | Referred To | | | | | Procedures | Contact | Contact | +--------+--------+ + + + + | Closed | | Radiology | Diagnoses | [place], | [facility] | | | | | Alcoholic | Vimal Arita MD | [address] | | | | | hepatitis | [address] | [address] | | | | | with ascites | [address] | [address] | | | | | Procedures | [address] | Research | | | | | MRI | [place], [place] | Center | | | | | [place] | [address] | [facility] [place] | | | | | PHY WWO | Phone: | [phone] | | | | | CONTRAST (+ | [phone] | Phone: | | | | | LIVER MASS) | Fax: | [phone] | | | | | [place] [facility], | [phone] | Fax: | | | | | ABDOMEN, | | [phone] | | | | | COMBO | | | +--------+--------+ + + + + Reason for Visit Diagnostic Testing (Urgent) +--------+--------+ + + + + | Status | Reason | Specialty | Diagnoses / | Referred By | Referred To | | | | | Procedures | Contact | Contact | +--------+--------+ + + + + | Closed | | Radiology | Diagnoses | [place], | [facility] | | | | | Alcoholic | Vimal Arita MD | [address] | | | | | hepatitis | [address] | [address] | | | | | with ascites | [address] | [address] | | | | | Procedures | 6D | Research | | | | | MRI | [place], [place] | Center | | | | | [place] | [address] | [facility] [place] | | | | | PHY WWO | Phone: | [phone] | | | | | CONTRAST (+ | [phone] | Phone: | | | | | [place]IVER [place]) | Fax: | [phone] | | | | | [place] [facility], | [phone] | Fax: | | | | | ABDOMEN, | | [phone] | | | | | COMBO | | | +--------+--------+ + + + + Encounter Details +--------+ + + + + | Date | Type | Department | Care Team | Description | +--------+ + + + + | 11/19/ | Hospital | Diagnostic Imaging | Vimal Crowe MD | | | 2019 | Encounter | Services at [facility] | [address] | | | | | [address] | [address] [place], | | | | | [place] | [place] [address] | | | | | [facility] | [phone] | | | | | [place], [place] | | | | | | [address] | | | | | | [phone] | | | +--------+ + + + + Social History + +-------+ +--------+------+ | Tobacco Use | Types | Packs/Day | Years | Date | | | | | Used | | + +-------+ +--------+------+ | Never Smoker | | | | | + +-------+ +--------+------+ + +------+---+---+ | Smokeless Tobacco: | Chew | | | | Current User | | | | + +------+---+---+ + + + | Sex Assigned at [...] | | 2019 | [place] | | [address] | | | | | | [address] | | | | | | [place], [place] | | | | | | [address] | | | | | | [phone] | | | | | | | | +--------+ + + + + | 09/27/ | Telephone-S | Liver Transplant | Vimal Crowe MD | | 2019 | [place] | | [address] | | | | | | [address], | | | | | | [place] [address] | | | | | | [phone] | | | | | | | | +--------+ + + + + | 10/03/ | Appointment | Cardiology | | | | 2019 | | | | | +--------+ + + + + | 10/03/ | Office | Cardiology | Cyril Samuel | | | 2019 | Visit | | MD Patricia [address] | | | | | | [address] | | | | | | [place], [place] | | | | | | [address] | | | | | | [phone] | | | | | | | | +--------+ + + + + documented as of this encounter Procedures + +--------+ + + + | Procedure Name | Priori | Date/Time | Associated Diagnosis | Comments | | | ty | | | | + +--------+ + + + | MRI [facility] | Urgent | 11/19/2018 | Alcoholic | Results for this | | [facility] CONTRAST (+ | | 6:54 PM | hepatitis with | procedure are in the | | LIVER MASS) | | PST | ascites | results section. | + +--------+ + + + | CREATININE, POC | Routin | 11/19/2018 | Alcoholic | Results for this | | | e | 6:06 PM | hepatitis with | procedure are in the | | | | PST | ascites | results section. | + +--------+ + + + documented in this encounter Results MRI [facility] CONTRAST (+ LIVER MASS) (11/19/2018 6:54 PM PST) + + | Specimen | + + | | + + + + + | Narrative | Performed At | + + + | EXAM: Abdomen MRI/MRCP without and with intravenous contrast. | [facility] | | HISTORY: 53-year-old man with history of alcoholic hepatitis and | RADIOLOGY VOICE | | worsening bilirubin. Evaluate for underlying cirrhosis, biliary | RECOGNITION 2 | | abnormalities, and HCC. COMPARISON: None available TECHNIQUE: | | | Multiplanar MRI of the abdomen was performed without and with | | | gadolinium-based intravenous contrast. MRCP was also performed. 3D | | | reconstructions were performed on the scanner. FINDINGS: | | | LIVER: There is mild nodularity of the hepatic contour with mild left | | | lobe hypertrophy. Diffuse signal loss on in-phase imaging is noted | | | throughout the liver, with more prominent focal signal loss about the | | | hepatic veins. BILIARY: The gallbladder is dilated and contains | | | multiple, tiny gallstones. There is no gallbladder wall thickening or | | | pericholecystic fluid. The common bile duct measures up to 8 mm in | | | diameter, but tapers appropriately toward the ampulla. There is no | | | intrahepatic ductal dilatation. The pancreatic duct is nondilated. | | | PANCREAS: Scattered signal loss on in-phase imaging is noted within | | | the pancreatic body/tail. SPLEEN: Splenomegaly, measuring up to | | | 19.6 cm in craniocaudal dimension. ADRENALS: Unremarkable. KIDNEYS: | | | Unremarkable. 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 The bowel is | | | nondilated. There is a moderate colonic stool burden. PERITONEUM: No | | | free air or fluid. LYMPH NODES: No lymphadenopathy. VESSELS: | | | Recanalization of the umbilical vein and gastric varices. The | | | mesenteric vasculature is unremarkable; the hepatic artery, portal | | | vein, and hepatic veins are patent. BONES AND SOFT TISSUES: | | | Unremarkable. IMPRESSION: 1. Cirrhosis with portal | | | hypertension. No focal lesion. 2. Diffuse hepatic signal loss on | | | in-phase imaging with more prominent focal signal loss about the | | | hepatic veins, and similar signal loss involving the pancreatic | | | body/tail. These findings reflect abnormal iron deposition, either due | | | to underlying cirrhosis or primary hemachromatosis. 3. | | | Cholelithiasis without associated inflammatory changes. No biliary | | | ductal dilatation. I have personally reviewed the images and, if | | | necessary, edited the report. I agree with the report as now | | | presented. Final signature: Eboni Vail MD 11/20/2018 | | | 11:26 AM Preliminary: Sai Hunter MD 11/20/2018 10:41 AM | | | Dictation initiated: Sai Hunter MD 11/20/2018 7:52 AM | | + + + + + | Procedure Note | + + | Service Account, Radiant Res In Interface - 11/20/2018 11:27 AM PST EXAM: Abdomen | | MRI/MRCP without and with intravenous contrast. HISTORY: 53-year-old man with history of | | alcoholic hepatitis and worsening bilirubin. Evaluate for underlying cirrhosis, biliary | | abnormalities, and HCC. COMPARISON: None available TECHNIQUE: Multiplanar MRI of the | | abdomen was performed without and with gadolinium-based intravenous contrast. MRCP was | | also performed. 3D reconstructions were performed on the scanner. FINDINGS: LIVER: There | | is mild nodularity of the hepatic contour with mild left lobe hypertrophy. Diffuse | | signal loss on in-phase imaging is noted throughout the liver, with more prominent focal | | signal loss about the hepatic veins.BILIARY: The gallbladder is dilated and contains | | multiple, tiny gallstones. There is no gallbladder wall thickening or pericholecystic | | fluid. The common bile duct measures up to 8 mm in diameter, but tapers appropriately | | toward the ampulla. There is no intrahepatic ductal dilatation. The pancreatic duct is | | nondilated.PANCREAS: Scattered signal loss on in-phase imaging is noted within the | | pancreatic body/tail. SPLEEN: Splenomegaly, measuring up to 19.6 cm in craniocaudal | | dimension.ADRENALS: Unremarkable.KIDNEYS: Unremarkable.GI TRACT: Gastric varices are | | noted. The bowel is nondilated. There is a moderate colonic stool burden.PERITONEUM: No | | free air or fluid. LYMPH NODES: No lymphadenopathy.VESSELS: Recanalization of the | | umbilical vein and gastric varices. The mesenteric vasculature is unremarkable; the | | hepatic artery, portal vein, and hepatic veins are patent. BONES AND SOFT TISSUES: | | Unremarkable. IMPRESSION: 1. Cirrhosis with portal hypertension. No focal lesion. 2. | | Diffuse hepatic signal loss on in-phase imaging with more prominent focal signal loss | | about the hepatic veins, and similar signal loss involving the pancreatic body/tail. | | These findings reflect abnormal iron deposition, either due to underlying cirrhosis or | | primary hemachromatosis. 3. Cholelithiasis without associated inflammatory changes. No | | biliary ductal dilatation. I have personally reviewed the images and, if necessary, | | edited the report. I agree with the report as now presented. Final signature: Eboni Gomez | | MD Genna 11/20/2018 11:26 AM Preliminary: Sai Hunter MD 11/20/2018 10:41 AM | | Dictation initiated: Sai Hunter MD 11/20/2018 7:52 AM | |1. Cirrhosis with portal hypertension. No focal lesion. | | | |2. Diffuse hepatic signal loss on in-phase imaging with more prominent focal signal loss ab out the hepatic veins, and similar signal loss involving the pancreatic body/tail. These fin dings reflect abnormal iron | |deposition, either due to underlying cirrhosis or primary hemachromatosis. | | | |3. Cholelithiasis without associated inflammatory changes. No biliary ductal dilatation. | | | |I have personally reviewed the images and, if necessary, edited the report. I agree with th e report as now presented. | | | |Final signature: Eboni Vail MD 11/20/2018 11:26 AM | |Preliminary: Sai Hunter MD 11/20/2018 10:41 AM | |Dictation initiated: Sai Hunter MD 11/20/2018 7:52 AM | + + + +---------+ + + | Performing | Address | City/State/Zipcode | Phone Number | | Organization | | | | + +---------+ + + | [facility] | | | | | VOICE RECOGNITION 2 | | | | + +---------+ + + CREATININE, POC (11/19/2018 6:06 PM PST) + +---------+ + + + | Component | Value | Ref Range | Performed | Pathologist | | | | | At | Signature | + +---------+ + + + | CREATININE, | 1.5 (H) | 0.7 - 1.3 mg/dL | [facility] | | | POC | | | [facility] | | | | | | [facility] | | | | | | [facility] CARE | | | | | | TESTS | | + +---------+ + + + + + | Specimen | + + | Blood - Blood | | (substance) | + + + + + + + | Performing | Address | City/State/Zipcode | Phone Number | | Organization | | | | + + + + + | [facility] | [address] | [place], [place] | | | [facility] | [address] | [address] | | | TESTS | | | | + + + + + documented in this encounter Visit Diagnoses + + | Diagnosis | + + | Alcoholic hepatitis with ascites Acute alcoholic hepatitis | + + documented in this encounter Administered Medications + +---------+ +-------+------+------+ | Medication Order | MAR | Action | Dose | Rate | Site | | | Action | Date | | | | + +---------+ +-------+------+------+ | gadoterate meglumine (DOTAREM) | IV Push | 11/19/19 | 17 mL | | | | 0.5 mmol/mL (376.9 mg/mL) | | 19 6:31 | | | | | injection 17 mL 17 mL (rounded | | PM PST | | | | | from 17.32 mL = 0.2 mL/kg | | | | | | | 86.6 kg Dosing weight), | | | | | | | intravenous, ONCE, 1 dose, Wed | | | | | | | 11/19/18 at 1900 | | | | | | + +---------+ +-------+------+------+ +---+---+ | | | +---+---+ documented in this encounter"
--- OUTSIDE RECORDS SUMMARY | ~2020-07-29 | XMS | Encounter Summary ---
Demographics + + + | Address | [address] | | | [place] [address] | + + + | Home Phone | | + + + | Preferred Language | Unknown | + + + | Marital Status | Single | + + + | Samaritan Affiliation | NON | + + + | Race | White | + + + | Ethnic Group | Not or | + + + Author + + + | Author | [facility] | + + + | Organization | [facility] | + + + | Address | Unknown | + + + | Phone | Unavailable | + + + Support + + + + + | Name | Relationship | Address | Phone | + + + + + | Doreen Manley | ECON | [address] | | | | | [place] | | | | | [address] | | + + + + + Care Team Providers + +------+ + | Care Advertising Dispatch Clerk Name | Role | Phone | + +------+ + | Sharon David MD | PCP | | + +------+ + Reason for Visit + +--------+ + | Reason | Onset | Comments | | | Date | | + +--------+ + | MELD Score | 07/22/ | | | | 2019 | | + +--------+ + Encounter Details +--------+ + + + + | Date | Type | Department | Care Team | Description | +--------+ + + + + | 07/22/ | Abstract | Clinical | Vimal Crowe MD | MELD Score | | 2019 | | Transplant Services | [address] | | | | | [address] | [address] [place], | | | | | [place], | [place] [address] | | | | | [place] [address] | [phone] | | | | | [phone] | | | +--------+ + + + [...] physical, mental, or emotional | Yes | 07/20/2019 | | condition, do you have serious difficulty | | | | doing errands alone such as visiting the | | | | doctor? | | | + + + + + + + + | Cognitive Status | Response | Date of Assessment | + + + + | Because of a physical, mental, or emotional | No | 07/20/2019 | | condition, do you have serious difficulty | | | | concentrating, remembering, or making | | | | decisions? (5 years old or older) | | | + + + + documented as of this encounter Amy Evans - 07/22/2019 8:09 AM PDTEntry verified in [facility] Waitlist. documented in this enco unter Plan of Treatment +--------+ + + + + | Date | Type | Specialty | Care Team | Description | +--------+ + + + + | 08/08/ | Telephone-S | Nephrology | Angélica Chao, | | | 2019 | [place] | | [address] | | | | | | [address] | | | | | | [place], [place] | | | | | | [address] | | | | | | [phone] | | | | | | | | +--------+ + + + + | 09/27/ | Telephone-S | Liver Transplant | Vimal Crowe MD | | | 2019 | [place] | | [address] | | | | | | [address], | | | | | | [place] [address] | | | | | | [phone] | | | | | | | | +--------+ + + + + | 10/03/ | Appointment | Cardiology | | | | 2019 | | | | | +--------+ + + + + | 10/03/ | Office | Cardiology | Cyril Samuel | | | 2019 | Visit | | MD Patricia [address] | | | | | | [address] | | | | | | [place], [place] | | | | | | [address] | | | | | | [phone] | | | | | | | | +--------+ + + + + documented as of this encounter Procedures + +--------+ + + + | Procedure Name | Priori | Date/Time | Associated Diagnosis | Comments | | | ty | | | | + +--------+ + + + | LAB OTHER | Routin | 07/22/2019 | | Results for this | | | e | | | procedure are in the | | | | | | results section. | + +--------+ + + + documented in this encounter Results LAB OTHER (07/22/2019) + + + + + + | Component | Value | Ref Range | Performed | Pathologist | | | | | At | Signature | + + + + + + | MELD | 38Comment: Calculated | | CALCULATED | | | | Manually Using [employer] MELD | | MANUALLY | | | | Calculator | | | | + + + + + + + + | Specimen | + + | | + + + + + + + | Performing | Address | City/State/Zipcode | Phone Number | | Organization | | | | + + + + + | [facility] | [address] | [place], [place] | | | MANUALLY | | | | + + + + + documented in this encounter Visit Diagnoses Not on filedocumented in this encounter"
--- OUTSIDE RECORDS SUMMARY | ~2020-07-29 | XMS | Encounter Summary ---
Demographics + + + | Address | [address] | | | [place] [address] | + + + | Home Phone | | + + + | Preferred Language | Unknown | + + + | Marital Status | Single | + + + | Methodist Affiliation | NON | + + + | Race | White | + + + | Ethnic Group | Not or | + + + Author + + + | Author | [facility] | + + + | Organization | [facility] | + + + | Address | Unknown | + + + | Phone | Unavailable | + + + Support + + + + + | Name | Relationship | Address | Phone | + + + + + | Doreen Manley | ECON | [address] | | | | | [place] | | | | | [address] | | + + + + + Care Team Providers + +------+ + | Care Commodity Director Name | Role | Phone | + +------+ + | Sharon David MD | PCP | | + +------+ + Encounter Details +--------+ + + + + | Date | Type | Department | Care Team | Description | +--------+ + + + + | 03/09/ | MyChart | Nephrology & | Alicia Canchola, | Steffen Parmar | | 2019 | Encounter | [facility] at [facility] | DO [address] | RX | | | | [address] | [address] | | | | | [facility] | [place], [place] | | | | | [address] | [address] | | | | | [place], [place] | [phone] | | | | | [address] | | | | | | [phone] | | | +--------+ + + + [...] | | | + +------+---+---+ + + +---------+ + | Alcohol Use | Drinks/Week | oz/Week | Comments | + + +---------+ + | No | | | | + + +---------+ + + + + | Sex Assigned [...] | 2019 | [place] | | [address] | | | | | | [address] | | | | | | [place], [place] | | | | | | [address] | | | | | | [phone] | | | | | | | | +--------+ + + + + | 09/27/ | Telephone-S | Liver Transplant | Vimal Crowe MD | | | 2019 | [place] | | [address] | | | | | | [facility] [place], | | | | | | [place] [address] | | | | | | [phone] | | | | | | | | +--------+ + + + + | 10/03/ | Appointment | Cardiology | | | | 2019 | | | | | +--------+ + + + + | 10/03/ | Office | Cardiology | Cyril Samuel | | | 2019 | Visit | | MD Patricia [address] | | | | | | [address] | | | | | | [place], [place] | | | | | | [address] | | | | | | [phone] | | | | | | | | +--------+ + + + + documented as of this encounter Visit Diagnoses Not on filedocumented in this encounter"
--- OUTSIDE RECORDS SUMMARY | ~2020-07-29 | XMS | Encounter Summary ---
Demographics + + + | Address | [address] | | | [place] [address] | + + + | Home Phone [...] Author + + + | Author | [facility] | + + + | Organization | [facility] | + + + | Address | Unknown | + + + | Phone | Unavailable | + + + Support + + + + + | Name | Relationship | Address | Phone | + + + + + | Doreen Manley | ECON | [address] | | | | | [place] | | | | | [address] | | + + + + + Care Team Providers + +------+ + | Care Real Estate Agent Name | Role | Phone | + +------+ + | Sharon David MD | PCP | | + +------+ + Reason for Visit + +--------+ + | Reason | Onset | Comments | | | Date | | + +--------+ + | Liver Transplant | 06/22/ | cardiology | | Follow Up | 2020 | | + +--------+ + Encounter Details +--------+ + + + + | Date | Type | Department | Care Team | Description | +--------+ + + + + | 06/22/ | Documentati | Clinical | Judie Mota, | Liver Transplant | | 2020 | on | Transplant Services | RN [address] | Follow Up | | | | [address] | [address] | (cardiology) | | | | [place], | [place], [place] | | | | | [place] [address] | [address] | | | | | [phone] | | | +--------+ + + + [...] this encounter Miscellaneous Notes Telephone Encounter - Elizabeth Sotelo - 06/23/2020 8:58 AM PDT LVM for the patient to schedule follow-up with Dr. Samuel. MD Vimal Duvall MD; Judie Mota, JAYDE; Tabitha Person MD; Angélica Chao MD; Marsha Pruett, RN; Car General/Heart Failure Scheduling Pool 13 hours ago (7:33 P M) Thanks for reaching out, I'd be happy to see him in clinic for comprehensive evaluation. No t sure why he never followed up with me in clinic after his initial visit last summer. Thanks, Cyril elephone Encounter - Judie Guerra RN - 06/22/2020 11:[address] Dan cardiology at [facility] would like to coordinate with our team. He is concerned that Donell's EF is now decreased to 35%, he would like assistance with medications ( Dileep Rowe paged he will contact). Will also send Dr. Dan last cards/ nephrology and hep note. documented in this encounter Plan of Treatment +--------+ + + + + | Date | Type | Specialty | Care Team | Description | +--------+ + + + + | 08/08/ | Telephone-S | Nephrology | Angélica Chao, | | 2019 | cheduled | | [address] | | | | | | [address] | | | | | | [place], [place] | | | | | | [address] | | | | | | [phone] | | | | | | | | +--------+ + + + + | 09/27/ | Telephone-S | Liver Transplant | Vmial Crowe MD | | | 2019 | [place] | | [address] | | | | | | [facility] [place], | | | | | | [place] [address] | | | | | | [phone] | | | | | | | | +--------+ + + + + | 10/03/ | Appointment | Cardiology | | | | 2019 | | | | | +--------+ + + + + | 10/03/ | Office | Cardiology | Cyril Samuel | | | 2019 | Visit | | MD Patricia [address] | | | | | | [address] | | | | | | [place], [place] | | | | | | [address] | | | | | | [phone] | | | | | | | | +--------+ + + + + documented as of this encounter Visit Diagnoses Not on filedocumented in this encounter"
--- OUTSIDE RECORDS SUMMARY | ~2020-07-29 | XMS | Encounter Summary ---
Demographics + + + | Address | [address] | | | [place] [address] | + + + | Home Phone | | + + + | Preferred Language | Unknown | + + + | Marital Status | Single | + + + | Restoration Affiliation | NON | + + + | Race | White | + + + | Ethnic Group | Not or | + + + Author + + + | Author | [facility] | + + + | Organization | [facility] | + + + | Address | Unknown | + + + | Phone | Unavailable | + + + Support + + + + + | Name | Relationship | Address | Phone | + + + + + | Doreen Manley | ECON | [address] | | | | | [place] | | | | | [address] | | + + + + + Care Team Providers + +------+ + | Care Vp Analytics Name | Role | Phone | + +------+ + | Sharon David MD | PCP | | + +------+ + Encounter Details +--------+ + + + + | Date | Type | Department | Care Team | Description | +--------+ + + + + | 06/29/ | Pharmacy | Pharmacy @ [facility] | | | | 2019 | Visit | [address] | | | | | | [address] Mailcode: | | | | | | [facility] | | | | | | and Healing, | | | | | | [address] | | | | | | [place], [place] | | | | | | [address] | | | +--------+ + + + [...] physical, mental, or emotional | No | 04/22/2019 | | condition, do you have serious difficulty | | | | doing errands alone such as visiting the | | | | doctor? | | | + + + + + + + + | Cognitive Status | Response | Date of Assessment | + + + + | Because of a physical, mental, or emotional | No | 04/22/2019 | | condition, do you have serious [...] Rd | | | | | | [place], [place] | | | | | | [address] | | | | | | [phone] | | | | | | | | +--------+ + + + + | 09/27/ | Telephone-S | Liver Transplant | Vimal Crowe MD | | | 2019 | cheduled | | [address] | | | | | | [facility] [address] [place], | | | | | | [place] [address] | | | | | | [phone] | | | | | | | [...] Rd | | | | | | [place] | | | | | | [address] | | | | | | [phone] | | | | | | | | +--------+ + + + + documented as of this encounter Visit Diagnoses Not on filedocumented in this encounter"
--- OUTSIDE RECORDS SUMMARY | ~2020-07-29 | XMS | Encounter Summary ---
Demographics + + + | Address | [address] | | | [place] [address] | + + + | Home Phone | | + + + | Preferred Language | Unknown | + + + | Marital Status | Single | + + + | Tenriism Affiliation | NON | + + + | Race | White | + + + | Ethnic Group | Not or | + + + Author + + + | Author | [facility] | + + + | Organization | [facility] | + + + | Address | Unknown | + + + | Phone | Unavailable | + + + Support + + + + + | Name | Relationship | Address | Phone | + + + + + | Doreen Manley | ECON | [address] | | | | | [place] | | | | | [id number] | | + + + + + Care Team Providers + +------+ + | Care Shear Helper Name | Role | Phone | + +------+ + | Sharon David MD | PCP | | + +------+ + Encounter Details +--------+ + + + + | Date | Type | Department | Care Team | Description | +--------+ + + + + | 09/04/ | Documentati | Liver Transplant | Dileep Lee, | | | 2019 | on | at [facility] [address] | PharmD [address] | | | | | [address] | [facility] | | | | | Physician's | [place] [address] | | | | | [address], 2nd floor | [phone] | | | | | [place], [place] | | | | | | [address] | | | | | | [phone] | | | +--------+ + + + [...] this encounter Miscellaneous Notes Telephone Encounter - Dileep Lee PharmD - 09/04/2019 9:50 AM PST Pharmacy Services: Liver Transplant Pharmacist Evaluation Steffen Duran is a 54 year old male with a history of liver transplant who was seen in Liver Transplant Clinic today. The patient s most recent medication information was obt ained from patient and Epic chart. Assessment: Steffen Duran is a 54 year old male who continues to recover following liver transpl antation. His prograf level is within the target range. Plan: Immunosuppression: see Medication list Prophylaxis: Valcyte, TMP/SMX, adjusted for renal function Diabetes: blood sugars in appropriate range Hypertension: in good control, continue current medications Osteoporosis: continue supplemental calcium with vitamin D and plan for a bone scan at 6 mo nths post transplant Hypomagnesemia: continue supplemental magnesium replacement Fluid status: on HD Renal: improving Vitals: There were no vitals taken for this visit. 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 [address] [place] [address] Hours: 9am-7pm Mon-fri / 9am-6pm Sat / Closed Sun E-Prescribing: Yes E-Prescribing Control Substances: Yes [address] [facility] [address] [place] [address] Hours: 8am-6pm Mon-sat E-Prescribing: Yes E-Prescribing Control Substances: Yes [facility]. [address] [facility], [place] [address] Hours: 8am-430pm Sat-saturday/closed Sat&sun E-Prescribing: Yes E-Prescribing Control Substances: Yes Allergies Allergen Reactions Doxycycline Hives and Rash Updated Outpatient Medications: Current Medication List Name Sig ALCOHOL SWABS Apply 1 each to affected area five times daily. Use as directed. AMIODARONE 200 MG TABLET Take 1 tablet by mouth once daily. Indications: Prevention of Vent ricular Fibrillation ASPIRIN 325 MG TABLET,DELAYED RELEASE Take 1 tablet by mouth once daily. BLOOD SUGAR DIAGNOSTIC STRIPS Test blood sugar four times daily (before each meal and at be dtime). Use as directed. Indications: type 2 diabetes mellitus BLOOD-GLUCOSE METER KIT Use as directed. Use as directed. CALCIUM CARBONATE 500 MG CALCIUM (1,250 MG) TABLET Take 2 tablets by mouth once daily at [facility]. Indications: osteoporosis prevention CHOLECALCIFEROL (VITAMIN D3) 2,000 UNIT TABLET Take 1 tablet by mouth once daily. FLUCONAZOLE 200 MG TABLET Take 2 tablets by mouth every Saturday. Indications: fungal infecti on prevention INSULIN LISPRO (U-100) 100 UNIT/ML SUBCUTANEOUS PEN Inject 5 units under the skin with christine kfast, 10 units under the skin with lunch, 12 units under the skin with dinner. Max dose = 5 6 units per day Indications: type 2 diabetes mellitus PEN NEEDLE, DIABETIC 31 GAUGE X 5/16" Use as directed for 5 insulin injections per day. INSULIN NPH ISOPHANE U-100 HUMAN 100 UNIT/ML (3 ML) SUBCUTANEOUS PEN Inject 18 Units under the skin (SUBC) once daily in the morning AND 8 Units once daily in the evening. Indications : type 2 diabetes mellitus. LANCETS 28 GAUGE Test blood sugar four times daily (before each meal and at bedtime). Indic ations: type 2 diabetes mellitus MAGNESIUM OXIDE 250 MG TAB (MG DOSING UPDATE) Take 2 tablets by mouth once daily at noon. METOPROLOL SUCCINATE ER 25 MG TABLET,EXTENDED RELEASE 24 HR Take 0.5 tablets by mouth once daily. Indications: high blood pressure MISCELLANEOUS MEDICAL SUPPLY MISC Chlorhexidine prep sticks (small) MULTIVITAMIN TABLET Take 1 tablet by mouth once daily. Indications: Treatment To Prevent Vi tamin Deficiency MYCOPHENOLATE MOFETIL 250 MG CAPSULE Take 4 capsules by mouth two times daily. Indications: liver transplant rejection prevention OMEPRAZOLE 20 MG CAPSULE,DELAYED RELEASE Take 1 capsule by mouth once daily. Indications: h eartburn OXYCODONE 5 MG TABLET Take 0.5 tablets by mouth every six hours as needed for breakthrough pain. PREDNISONE 5 MG TABLET Take 3 tablets by mouth once daily. Indications: liver transplant re jection prevention QUETIAPINE 25 MG TABLET Take 0.5 tablets by mouth once daily at bedtime. TACROLIMUS 1 MG CAPSULE Take 4 capsules by mouth two times daily. Indications: liver transp lant rejection prevention SULFAMETHOXAZOLE 400 MG-TRIMETHOPRIM 80 MG TABLET Take 1 tablet by mouth three times weekly (on Saturday, and Saturday). Please take after dialysis Indications: pneumonia prev ention VALGANCICLOVIR 450 MG TABLET Take 1 tablet by mouth three times weekly (on Saturday, and Saturday). Please take after dialysis sessions Indications: viral infection prevention Assessment/Recommendations: 1. Immunosuppression: -MMF 1000 mg po bid - -Prednisone 15 mg daily - -Tacrolimus 4 mg po bid - 12-hour trough level = [id number] Date Value Ref Range Status 09/03/2019 6.9 5.0 - 15.0 ng/mL Final 08/31/2019 3.9 (L) 5.0 - 15.0 ng/mL Final 08/29/2019 6.3 5.0 - 15.0 ng/mL Final Comment: Begin POD #1 2. Electrolytes -Vitamin D -Multivitamin -Calcium -Phosphate level: PO4 Date Value Ref Range Status 09/03/2019 3.6 2.4 - 4.7 mg/dL Final -Magnesium level: MG Date Value Ref Range Status 09/03/2019 1.4 (L) 1.6 - 2.6 mg/dL Final 3. Vitals Pain: well controlled Wt Readings from Last 1 Encounters: 09/04/19 105.2 kg (232 lb) Ht Readings from Last 1 Encounters: 09/04/19 71" Last 1 Encounter BMI Readings: Date BMI 09/04/2019 32.36 kg/m2 Labs/vitals: Recent Labs 09/03/19 0809 WBC 5.43 HB 7.6* HCT 23.5* PLT 154 Recent Labs 09/03/19 0809 K 4.2 BUN 33* CR 1.81* MG 1.4* CA 8.6 PO4 3.6 TBILI 0.8 AST 10 ALT 23 Recent Labs 09/03/19 0809 FK506 6.9 Medication management: all medications were reviewed for dosing, drug interactions, and parris e effects. Recommend to continue current medications with the exceptions listed above. A total of 30 minutes were spent on counseling, coordination of care and medication reconci liation. Current medication, OTC, and supplement use and allergies were validated with the p atient. All questions concerning medications were addressed with the patient. Any recommende d medication changes determined at the liver transplant clinic visit with the transplant pro vider have been reviewed and incorporated in the current medication list. For any further questions regarding this information contact pharmacy, pager #[phone] Thank you, Dileep Lee PharmD, [facility] Clinical Pharmacist documented in this en counter Plan of Treatment +--------+ + + + + | Date | Type | Specialty | Care Team | Description | +--------+ + + + + | 08/08/ | Telephone-S | Nephrology | Angélica Chao, | | | 2019 | [place] | | [address] | | | | | | [address] | | | | | | [place], [place] | | | | | | [address] | | | | | | [phone] | | | | | | | | +--------+ + + + + | 09/27/ | Telephone-S | Liver Transplant | Vimal Crowe MD | | | 2019 | cheduled | | [address] | | | | | | [address], | | | | | | [place] [address] | | | | | | [phone] | | | | | | | [...] [address] | | | | | | [place] | | | | | | [address] | | | | | | [phone] | | | | | | | | +--------+ + + + + documented as of this encounter Visit Diagnoses Not on filedocumented in this encounter
--- OUTSIDE RECORDS SUMMARY | ~2020-07-29 | XMS | Encounter Summary ---
Demographics + + + | Address | [address] | | | [place] [address] | + + + | Home Phone | | + + + | Preferred Language | Unknown | + + + | Marital Status | Single | + + + | Judaism Affiliation | NON | + + + | Race | White | + + + | Ethnic Group | Not or | + + + Author + + + | Author | [facility] | + + + | Organization | [facility] | + + + | Address | Unknown | + + + | Phone | Unavailable | + + + Support + + + + + | Name | Relationship | Address | Phone | + + + + + | Doreen Manley | ECON | [address] | | | | | [place] | | | | | [address] | | + + + + + Care Team Providers + +------+ + | Care Navigation Teacher Name | Role | Phone | + +------+ + | Sharon David MD | PCP | | + +------+ + Encounter Details +--------+ + + + + | Date | Type | Department | Care Team | Description | +--------+ + + + + | 01/24/ | Pharmacy | [facility] | | | | 2020 | Visit | [address] | | | | | | [address] | | | | | | [place] [address] | | | | | | [phone] | | | +--------+ + + + [...] Rd | | | | | | [place], [place] | | | | | | [address] | | | | | | [phone] | | | | | | | | +--------+ + + + + | 09/27/ | Telephone-S | Liver Transplant | Vimal Crowe MD | | | 2019 | cheduled | | [address] | | | | | | [address], | | | | | | [place] [address] | | | | | | [phone] | | | | | | | [address] | | | | | | [place] | | | | | | [address] | | | | | | [phone] | | | | | | | | +--------+ + + + + documented as of this encounter Visit Diagnoses Not on filedocumented in this encounter"
--- OUTSIDE RECORDS SUMMARY | ~2020-07-29 | XMS | Encounter Summary ---
Demographics + + + | Address | [address] | | | [place] [address] | + + + | Home Phone | | + + + | Preferred Language | Unknown | + + + | Marital Status | Single | + + + | Sabianist Affiliation | NON | + + + | Race | White | + + + | Ethnic Group | Not or | + + + Author + + + | Author | [facility] | + + + | Organization | [facility] | + + + | [...] [place] | | | | | [id number] | | + + + + + Care Team Providers + +------+ + | Care General Purchasing Agent Name | Role | Phone | + +------+ + | Sharon David MD | PCP | | + +------+ + Reason for Visit + +--------+ + | Reason | Onset | Comments | | | Date | | + +--------+ + | Refill Request | 07/18/ | | | | 2020 | | + +--------+ + Encounter Details +--------+--------+ + + + | Date | Type | Department | Care Team | Description | +--------+--------+ + + + | 07/18/ | Refill | Clinical | Vimal Crowe MD | Refill Request | | 2020 | | Transplant Services | [address] | | | | | [address] | [address] [place], | | | | | [place], | [place] [address] | | | | | [place] [address] | [phone] | | | | | [phone] | | | +--------+--------+ + + + Social History + +-------+ [...] this encounter Miscellaneous Notes Telephone Encounter - Judie Mota RN - 07/18/2020 1:52 PM [id number] MMF BID per Dr. Andre bar. documented in this encounter Plan of Treatment [...] [address] | | | | | | [place] | | | | | | [address] | | | | | | [phone] | | | | | | | | +--------+ + + + + | 09/27/ | Telephone-S | Liver Transplant | Vimal Crowe MD | | | 2019 | [place] | | [address] | | | | | | [place], | | | | | | [place] [address] | | | | | | [phone] | | | | | | | | +--------+ + + + + | 10/03/ | Appointment | Cardiology | | | | 2019 | | | | | +--------+ + + + + | 10/03/ | Office | Cardiology | Cyril Samuel | | | 2019 | Visit | | MD Patricia [address] [facility] | | | | | | [address] | | | | | | [place] | | | | | | [address] | | | | | | [phone] | | | | | | | | +--------+ + + + + documented as of this encounter Visit Diagnoses Not on filedocumented in this encounter"
--- OUTSIDE RECORDS SUMMARY | ~2020-07-29 | XMS | Encounter Summary ---
Demographics + + + | Address | [address] | | | [place] [address] | + + + | Home Phone | | + + + | Preferred Language | Unknown | + + + | Marital Status | Single | + + + | Jewish Affiliation | NON | + + + | Race | White | + + + | Ethnic Group | Not or | + + + Author + + + | Author | [facility] | + + + | Organization | [facility] | + + + | Address | Unknown | + + + | Phone | Unavailable | + + + Support + + + + + | Name | Relationship | Address | Phone | + + + + + | Doreen Manley | ECON | [address] | | | | | [place] | | | | | [address] | | + + + + + Care Team Providers + +------+ + | Care Monogram Operator Name | Role | Phone | + +------+ + | Sharon David MD | PCP | | + +------+ + Encounter Details +--------+ + + + + | Date | Type | Department | Care Team | Description | +--------+ + + + + | 05/30/ | Pharmacy | [facility] | | | | 2020 | Visit | [address] | | | | | | [address] | | | | | | [place] [address] | | | | | | [phone] | | | +--------+ + + + [...] Rd | | | | | | [place], [place] | | | | | | [address] | | | | | | [phone] | | | | | | | | +--------+ + + + + | 09/27/ | Telephone-S | Liver Transplant | Vimal Crowe MD | | | 2019 | cheduled | | [address] | | | | | | [address], | | | | | | [place] [address] | | | | | | [phone] | | | | | | | [...] Rd | | | | | | [place] | | | | | | [address] | | | | | | [phone] | | | | | | | | +--------+ + + + + documented as of this encounter Visit Diagnoses Not on filedocumented in this encounter"
--- OUTSIDE RECORDS SUMMARY | ~2020-07-29 | XMS | Encounter Summary ---
Demographics + + + | Address | [address] | | | [place] [address] | + + + | Home Phone | | + + + | Preferred Language | Unknown | + + + | Marital Status | Single | + + + | Latter-Day Affiliation | NON | + + + | Race | White | + + + | Ethnic Group | Not or | + + + Author + + + | Author | [facility] | + + + | Organization | [facility] | + + + | Address | Unknown | + + + | Phone | Unavailable | + + + Support + + + + + | Name | Relationship | Address | Phone | + + + + + | Doreen Manley | ECON | [address] | | | | | [place] | | | | | [address] | | + + + + + Care Team Providers + +------+ + | Care Water Treatment Plant Mechanic Name | Role | Phone | + +------+ + | Sharon David MD | PCP | | + +------+ + Encounter Details +--------+ + + + + | Date | Type | Department | Care Team | Description | +--------+ + + + + | 09/05/ | Pharmacy | [facility] | | | | 2018 | Visit | [facility] | | | | | | [address] | | | | | | [address] [place], [place] | | | | | | [address] | | | | | | [phone] | | | +--------+ + + + [...] [address] | | | | | | [place], [place] | | | | | | [address] | | | | | | [phone] | | | | | | | | +--------+ + + + + | 09/27/ | Telephone-S | Liver Transplant | Vimal Crowe MD | | | 2019 | cheduled | | [address] | | | | | | [address] [place], | | | | | | [place] [address] | | | | | | [phone] | | | | | | | [address] | | | | | | [place], [place] | | | | | | [address] | | | | | | [phone] | | | | | | | | +--------+ + + + + documented as of this encounter Visit Diagnoses Not on filedocumented in this encounter"
--- OUTSIDE RECORDS SUMMARY | ~2020-07-29 | XMS | Clinical Summary ---
Demographics + + + | Address | [address] | | | [place] [address] | + + + | Home Phone | | + + + | Preferred Language | Unknown | + + + | Marital Status | Single | + + + | Church Affiliation | Unknown | + + + | Race | White | + + + | Ethnic Group | Not or | + + + Author + + + | Author | [facility] | | | and [place] | + + + | Organization | [facility] | | | and [place] | + + + | Address | Unknown | + + + | Phone | Unavailable | + + + Support + + +---------+ + | Name | Relationship | Address | Phone | + + +---------+ + | Kavya Langley | ECON | Unknown | | + + +---------+ + Care Team Providers + +------+ + | Care Electrical Discharge Machine Operator Name | Role | Phone | + +------+ + | Sharon David MD | PCP | | + +------+ + Allergies + + + + + + | Active Allergy | Reactions | Severity | Noted | Comments | | | | | Date | | + + + + + + | Doxycycline | Hives | High | 07/17/20 | | | | | | 18 | | + + + + + + Medications + + + +---------+------+------+-------+ | Medication | Sig | Dispensed | Refills | Star | End | Statu | | | | | | t | Date | s | | | | | | Date | | | + + + +---------+------+------+-------+ | tacrolimus | Take 3 mg by mouth 2 | | 0 | | | Activ | | (PROGRAF) 1 mg | times daily. | | | | | e | | capsule | | | | | | | + + + +---------+------+------+-------+ | amiodarone | Take 200 mg by mouth | | 0 | | | Activ | | (PACERONE) 200 mg | Daily. | | | | | e | | tablet | | | | | | | + + + +---------+------+------+-------+ | metoprolol | Take 25 mg by mouth | | 0 | | | Activ | | succinate | Daily. | | | | | e | | (TOPROL-XL) 25 mg 24 | | | | | | | | hr tablet | | | | | | | + + + +---------+------+------+-------+ | insulin glargine | Inject 10 Units | | 0 | | | Activ | | (LANTUS) 100 | under the skin | | | | | e | | units/mL injection | nightly. | | | | | | | (vial) | | | | | | | + + + +---------+------+------+-------+ | fludrocortisone | Take 0.1 mg by mouth | | 0 | | | Activ | | (FLORINEF) 0.1 mg | Daily. | | | | | e | | tablet | | | | | | | + + + +---------+------+------+-------+ | aspirin 325 mg | Take 325 mg by mouth | | 0 | | | Activ | | tablet | Daily. | | | | | e | + + + +---------+------+------+-------+ | magnesium oxide | Take 250 mg by mouth | | 0 | | | Activ | | 250 MG TABS | 2 times daily. | | | | | e | + + + +---------+------+------+-------+ | calcium-vitamin D | Take 1 tablet by | | 0 | | | Activ | | (OYSTER SHELL | mouth Daily. | | | | | e | | CALCIUM/D) 500 | | | | | | | | mg-200 units per | | | | | | | | tablet | | | | | | | + + + +---------+------+------+-------+ | sodium zirconium | Take 10 g by mouth | | 0 | | | Activ | | cyclosilicate | Twice a week. | | | | | e | | (LOKELMA) 10 g | | | | | | | | packet | | | | | | | + + + +---------+------+------+-------+ | isosorbide | Take 1 tablet by | 90 | 11 | 06/1 | | Activ | | dinitrate (ISORDIL) | mouth 3 times daily. | tablet | | 7/20 | | e | | 20 mg tablet | | | | 20 | | | + + + +---------+------+------+-------+ | insulin aspart | Inject 10 Units | | 0 | 08/0 | | Activ | | (NOVOLOG FLEXPEN) | under the skin. | | | 2/20 | | e | | 100 units/mL | | | | 20 | | | | injection pen | | | | | | | + + + +---------+------+------+-------+ | apixaban (ELIQUIS) | Take 1 tablet by | 120 | 1 | 09/1 | | Activ | | 2.5 mg tablet | mouth 2 times daily. 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 | 07/24/2019 | + + + | Left nephrolithiasis | 05/20/2019 | + + + + + | Overview: 05/19/2019: asymptomatic 4 mm left renal stone | + + + + + | Paroxysmal A-fib | 04/21/2019 | + + + | SVT (supraventricular tachycardia) | 04/21/2019 | + + + | Chronic kidney disease | 02/27/2019 | + + + | Hepatorenal syndrome | 02/27/2019 | + + + | Splenomegaly | 07/21/2018 | + + + | Pulmonary hypertension (moderate/severe) | 07/19/2018 | + + + | Alcoholic cirrhosis of liver with ascites | 07/17/2018 | + + + | Hyperbilirubinemia | 07/17/2018 | + + + | Macrocytic anemia | 07/17/2018 | + + + | Thrombocytopenia | 07/17/2018 | + + + | Multiple open wounds of lower leg | 07/17/2018 | + + + Resolved Problems + + + + | Problem | Noted | Resolved | | | Date | Date | + + + + | Abnormal blood coagulation profile | 07/17/20 | | | | 18 | 0 | + + + + | ETOH abuse | 07/17/20 | | | | 18 | 0 | + + + + | Hyponatremia | 07/17/20 | | | | 18 | 0 | + + + + | KAR (acute kidney injury) | 07/17/20 | | | | 18 | 0 | + + + + Encounters +--------+ + + + + | Date | Type | Specialty | Care Team | Description | +--------+ + + + + | 07/07/ | Documentati | Cardiology | Chen Alan, | | | 2019 | on | | MD | | +--------+ + + + + | 06/29/ | Telephone | Cardiology | Chen Alan, | LABS (LAB ENTRY | | 2019 | | | MD | 06/16/2020) | +--------+ + + + + | 06/22/ | Office | Cardiology | Chen Alan, | Pulmonary | 2019 | Visit | | MD | hypertension | | | | | | (moderate/severe) | | | | | | (Primary Dx); | | | | | | Paroxysmal A-fib | | | | | | (HCC); SVT | | | | | | (supraventricular | | | | | | tachycardia) (HCC); | | | | | | Liver transplant | | | | | | status (HCC) | +--------+ + + + + | 04/28/ | Procedure | Cardiology | Chen Alan, | SVT | | 2020 | visit | | MD | (supraventricular | | | | | | tachycardia) ([facility]); | | | | | | Pulmonary | | | | | | hypertension | | | | | | (moderate/severe); | | | | | | Stage 3 chronic | | | | | | kidney disease | | | | | | ([facility]); Liver | | | | | | transplant status | | | | | | ([facility]) | +--------+ + + + + | 04/28/ | Documentati | Cardiology | Carmelina Rock, | Other (end of study) | | 2020 | on | | Technologist | | +--------+ + + + + from Last 3 Months Social History + +-------+ +--------+------+ | Tobacco Use | Types | Packs/Day | Years | Date | | | | | Used | | + +-------+ +--------+------+ | Never Smoker | | | | | + +-------+ +--------+------+ + +---+---+---+ | Smokeless Tobacco: | | | | | Never Used | | | | + +---+---+---+ + + +---------+ + | Alcohol Use | Drinks/Week | oz/Week | Comments | + + +---------+ + | Not Currently | | | | + + +---------+ + + + + | Sex Assigned at | Date Recorded | | | | + + + | Not on file | | + + + Last Filed Vital Signs + + + + + | Vital Sign | Reading | Time Taken | Comments | + + + + + | Blood Pressure | 118/68 | 06/22/2020 10:04 AM | | | | | PDT | | + + + + + | Pulse | 64 | 06/22/2020 10:04 AM | | | | | PDT | | + + + + + | Temperature | 36.6 C (97.8 F) | 09/15/2018 10:40 AM | | | | | PST | | + + + + + | Respiratory Rate | 18 | 09/15/2018 10:40 AM | | | | | PST | | + + + + + | Oxygen Saturation | 99% | 06/22/2020 10:04 AM | | | | | PDT | | + + + + + | Inhaled Oxygen | - | - | | | Concentration | | | | + + + + + | Weight | 90.7 kg (200 lb) | 06/22/2020 10:04 AM | | | | | PDT | | + + + + + | Height | 180.3 cm (5' 11") | 06/22/2020 10:04 AM | | | | | PDT | | + + + + + | Body Mass Index | 27.89 | 06/22/2020 10:04 AM | | | | | PDT | | + + + + + Plan of Treatment +--------+---------+ + + + | Date | Type | Specialty | Care Team | Description | +--------+---------+ + + + | 12/22/ | Office | Cardiology | Shannan Almanza | | | 2020 | Visit | | [address] | | | | | | [address] | | | | | | [place] [address] | | | | | | [phone] | | | | | | | | +--------+---------+ + + + + + + + + | Health Maintenance | Due Date | Last | Comments | | | | Done | | + + + + + | Med Mgmt: HBA1C | | | | | | 5 | | | + + + + + | Med Mgmt: HDL | | | | | | 5 | | | + + + + + | Med Mgmt: LDL | | | | | | 5 | | | + + + + + | Med Mgmt: TSH | | | | | | 5 | | | + + + + + | Med Mgmt: Tacrolimus | | | | | | 5 | | | + + + + + | Med Mgmt: Total | | | | | Cholesterol | 5 | | | + + + + + | Med Mgmt: | | | | | Triglycerides | 5 | | | + + + + + | Medication | | | | | Management | 5 | | | + + + + + | Vaccine: | | | | | Pneumococcal 19-64 | 1 | | | | (1 of 3 - PCV13) | | | | + + + + + | Vaccine: | | | | | Dtap/Tdap/Td (1 - | 4 | | | | Tdap) | | | | + + + + + | Vaccine: Zoster (1 | | | | | of 2) | 5 | | | + + + + + | Med Mgmt: ALT | | 07/24/20 | | | | 9 | 18, | | | | | 07/23/20 | | | | | 18, | | | | | 07/22/20 | | | | | 18, | | | | | Addition | | | | | al | | | | | history | | | | | exists | | + + + + + | Med Mgmt: AST | | 07/24/20 | | | | 9 | 18, | | | | | 07/23/20 | | | | | 18, | | | | | 07/22/20 | | | | | 18, | | | | | Addition | | | | | al | | | | | history | | | | | exists | | + + + + + | Med Mgmt: Cr | | 07/24/20 | | | | 9 | 18, | | | | | 07/23/20 | | | | | 18, | | | | | 07/22/20 | | | | | 18, | | | | | Addition | | | | | al | | | | | history | | | | | exists | | + + + + + | Med Mgmt: Glucose | | 07/24/20 | | | | 9 | 18, | | | | | 07/23/20 | | | | | 18, | | | | | 07/22/20 | | | | | 18, | | | | | Addition | | | | | al | | | | | history | | | | | exists | | + + + + + | Med Mgmt: K | | 07/24/20 | | | | 9 | 18, | | | | | 07/23/20 | | | | | 18, | | | | | 07/22/20 | | | | | 18, | | | | | Addition | | | | | al | | | | | history | | | | | exists | | + + + + + | Med Mgmt: Na | | 07/24/20 | | | | 9 | 18, | | | | | 07/23/20 | | | | | 18, | | | | | 07/22/20 | | | | | 18, | | | | | Addition | | | | | al | | | | | history | | | | | exists | | + + + + + | Med Mgmt: HCT | | 08/05/20 | | | | 9 | 18, | | | | | 07/29/20 | | | | | 18, | | | | | 07/24/20 | | | | | 18, | | | | | Addition | | | | | al | | | | | history | | | | | exists | | + + + + + | Med Mgmt: HGB | | 08/05/20 | | | | 9 | 18, | | | | | 07/29/20 | | | | | 18, | | | | | 07/24/20 | | | | | 18, | | | | | Addition | | | | | al | | | | | history | | | | | exists | | + + + + + | Med Mgmt: PLT | | 08/05/20 | | | | 9 | 18, | | | | | 07/29/20 | | | | | 18, | | | | | 07/24/20 | | | | | 18, | | | | | Addition | | | | | al | | | | | history | | | | | exists | | + + + + + | Med Mgmt: WBC | | 08/05/20 | | | | 9 | 18, | | | | | 07/29/20 | | | | | 18, | | | | | 07/24/20 | | | | | 18, | | | | | Addition | | | | | al | | | | | history | | | | | exists | | + + + + + | Vaccine: Influenza | | | | | (#1) | 0 | | | + + + + + | Med Mgmt: ECG | | 04/06/20 | | | | 1 | 20 | | + + + + + | Colorectal Cancer | | 07/20/20 | | | Screening | 8 | 18 | | | (Colonoscopy) | | | | + + + + + | Hepatitis C | Completed | 07/18/20 | | | Screening | | 18 | | + + + + + Procedures + +--------+ + + + | Procedure Name | Priori | Date/Time | Associated Diagnosis | Comments | | | ty | | | | + +--------+ + + + | LABS - EXTERNAL SCAN | | 06/16/2020 | | Results for this | | | | 12:00 AM | | procedure are in the | | | | PDT | | results section. | + +--------+ + + + from Last 3 Months Results LABS - EXTERNAL SCAN (06/16/2020 12:00 AM PDT) + + + | Narrative | Performed At | + + + | Ordered by an | | | unspecified provider. | | + + + from Last 3 Months Insurance + +--------+ +--------+ +---------+--------+ | Payer | Benefi | Subscriber | Effect | Phone | Address | Type | | | t Plan | ID | prudence | | | | | | / | | Dates | | | | | | Group | | | | | | + +--------+ +--------+ +---------+--------+ | [employer] | MODA | [id number] | | [phone] | | Medica | | MEDICAID HMO | HEALTH | | [id number] | 1 | | id | | | MDCD | | esent | | | | | [place] | | | | | | + +--------+ +--------+ +---------+--------+ + +--------+ +--------+ + + | Guarantor Name | Accoun | Relation to | Date | Phone | Billing Address | | | t Type | Patient | of | | | | | | | | | | + +--------+ +--------+ + + | Steffen Duran | Person | Self [birth year] | [address] | | | al/Fam | | 1965 | [phone] | [place] | | | moi | | | [address] (Home) | [place] [address] | + +--------+ +--------+ + + Advance Directives + + + + + | Type | Date Recorded | Patient | Explanation | | | | Telephone Interceptor Operator | | + + + + + | Power of | | | | | Subway Train Operator | | | | + + + + + | Advance | | | | | Directive | | | | + + + + +
--- OUTSIDE RECORDS SUMMARY | ~2020-07-29 | XMS | Encounter Summary ---
Demographics + + + | Address | [address] | | | [place] [address] | + + + | Home Phone | | + + + | Preferred Language | Unknown | + + + | Marital Status | Single | + + + | Cheondoism Affiliation | NON | + + + | Race | White | + + + | Ethnic Group | Not or | + + + Author + + + | Author | [facility] | + + + | Organization | [facility] | + + + | Address | Unknown | + + + | Phone | Unavailable | + + + Support + + + + + | Name | Relationship | Address | Phone | + + + + + | Doreen Manley | ECON | [address] | | | | | [place] | | | | | [address] | | + + + + + Care Team Providers + +------+ + | Care Failure Analysis Engineer Name | Role | Phone | + +------+ + | Sharon David MD | PCP | | + +------+ + Encounter Details +--------+ + + + + | Date | Type | Department | Care Team | Description | +--------+ + + + + | 06/08/ | Abstract | Clinical | Vimal Crowe MD | | | 2019 | | Transplant Services | [address] | | | | | [address] | [address] [place], | | | | | [place], | [place] [address] | | | | | [place] [address] | [phone] | | | | | [phone] | | | +--------+ + + + [...] [address] | | | | | | [place], [place] | | | | | | [address] | | | | | | [phone] | | | | | | | | +--------+ + + + + | 09/27/ | Telephone-S | Liver Transplant | Vimal Crowe MD | | | 2019 | [place] | | [address] | | | | | | [address] [place], | | | | | | [place] [address] | | | | | | [phone] | | | | | | | | +--------+ + + + + | 10/03/ | Appointment | Cardiology | | | | 2019 | | | | | +--------+ + + + + | 10/03/ | Office | Cardiology | Cyril Samuel | | | 2019 | Visit | Darren Gomez MD [address] | | | | | | [address] | | | | | | [place], [place] | | | | | | [address] | | | | | | [phone] | | | | | | | | +--------+ + + + + documented as of this encounter Procedures + +--------+ + + + | Procedure Name | Priori | Date/Time | Associated Diagnosis | Comments | | | ty | | | | + +--------+ + + + | LIVER TRANSPLANT | Routin | 06/07/2020 | | Results for this | | POST PANEL (EXT | e | 9:43 AM | | procedure are in the | | RESULTS) | | PDT | | results section. | + +--------+ + + + documented in this encounter Results LIVER TRANSPLANT POST PANEL (EXT RESULTS) (06/07/2020 9:43 AM PDT) + + + + + + | Component | Value | Ref Range | Performed | Pathologist | | | | | At | Signature | + + + + + + | SODIUM, | 138 | mmol/L | [facility] | | | [facility] | | | LAB | | | (LAB) | | | | | | | | | [place] | | + + + + + + | POTASSIUM, | 5.2 | mmol/L | [facility] | | | [facility] | | | LAB | | | (LAB) | | | | | | | | | [place] | | + + + + + + | CHLORIDE, | 99 | mmol/L | [facility] | | | [facility] | | | LAB | | | (LAB) | | | | | | | | | [place] | | + + + + + + | TOTAL CO2, | 31 | mmol/L | [facility] | | | [facility] | | | LAB | | | (LAB) | | | | | | | | | [place] | | + + + + + + | GLUCOSE, | 178 (A) | 65 - 110 mg/dL | [facility] | | | [facility] | | | LAB | | | (LAB) | | | | | | | | | [place] | | + + + + + + | BUN, PLASMA | 49 | mg/dL | [facility] | | | (LAB) | | | LAB | | | | | | | | | | | | [place] | | + + + + + + | CREATININE | 2.79 | mg/dL | [facility] | | | [facility] | | | LAB | | | (LAB) | | | | | | | | | [place] | | + + + + + + | CALCIUM, | 9.6 | mg/dL | [facility] | | | [facility] | | | LAB | | | (LAB) | | | | | | | | | [place] | | + + + + + + | PHOSPHORUS, | 3.8 | mg/dL | [facility] | | | [facility] | | | LAB | | | (LAB) | | | | | | | | | [place] | | + + + + + + | MAGNESIUM,P | 2.5 | mg/dL | [facility] | | | LASMA | | | LAB | | | | | | | | | | | | [place] | | + + + + + + | TOTAL | 6.7 | g/dL | [facility] | | | PROTEIN, | | | LAB | | | PLASMA | | | | | | (LAB) | | | [place] | | + + + + + + | ALBUMIN, | 4.1 | g/dL | [facility] | | | [facility] | | | LAB | | | (LAB) | | | | | | | | | [place] | | + + + + + + | BILIRUBIN | 0.5 | Transcutaneous | [facility] | | | TOTAL | | Bilirubinometer | LAB | | | | | | | | | | | | [facility] | | + + + + + + | BILIRUBIN | 0.1 | mg/dL | [facility] | | | DIRECT | | | LAB | | | | | | | | | | | | [place] | | + + + + + + | ALK PHOS | 82 | U/L | [facility] | | | | | | LAB | | | | | | | | | | | | [place] | | + + + + + + | AST(SGOT) | 17 | U/L | [facility] | | | | | | LAB | | | | | | | | | | | | [place] | | + + + + + + | ALT (SGPT) | 18 | U/L | [facility] | | | | | | LAB | | | | | | | | | | | | [place] | | + + + + + + | URIC ACID, | 7.0 | mg/dL | [facility] | | | PLASMA | | | LAB | | | (LAB) | | | | | | | | | [place] | | + + + + + + | WHITE CELL | 3.49 | K/cu mm | [facility] | | | COUNT | | | LAB | | | | | | | | | | | | [place] | | + + + + + + | HEMATOCRIT | 30.0 | % | [facility] | | | | | | LAB | | | | | | | | | | | | [place] | | + + + + + + | HEMOGLOBIN | 10.4 (A) | 13.5 - 17.5 | [facility] | | | | | g/dL | LAB | | | | | | | | | | | | [place] | | + + + + + + | PLATELET | 113 | K/cu mm | [facility] | | | COUNT | | | LAB | | | | | | | | | | | | [place] | | + + + + + + | TACROLIMUS | 5.2 | ng/mL | [facility] | | | ([address]) | | | LAB | | | | | | | | | | | | [place] | | + + + + + + + + | Specimen | + + | Blood - Blood | | (substance) | + + + + + | Narrative | Performed At | + + + | | | + + + + +---------+ + + | Performing | Address | City/State/Zipcode | Phone Number | | Organization | | | | + +---------+ + + | [facility] | | | [phone] | | | | | | | [place] | | | | + +---------+ + + documented in this encounter Visit Diagnoses Not on filedocumented in this encounter"
--- OUTSIDE RECORDS SUMMARY | ~2020-07-29 | XMS | Encounter Summary ---
Demographics + + + | Address | [address] | | | [place] [address] | + + + | Home Phone | | + + + | Preferred Language | Unknown | + + + | Marital Status | Single | + + + | Denominational Affiliation | NON | + + + | Race | White | + + + | Ethnic Group | Not or | + + + Author + + + | Author | [facility] | + + + | Organization | [facility] | + + + | Address | Unknown | + + + | Phone | Unavailable | + + + Support + + + + + | Name | Relationship | Address | Phone | + + + + + | Doreen Manley | ECON | [address] | | | | | [place] | | | | | [address] | | + + + + + Care Team Providers + +------+ + | Care Licensed Loan Officer Name | Role | Phone | + +------+ + | Sharon David MD | PCP | | + +------+ + Encounter Details +--------+ + + + + | Date | Type | Department | Care Team | Description | +--------+ + + + + | 11/19/ | Pharmacy | Outpatient Retail | | | | 2019 | Visit | Clinic Pharmacy | | | | | | [address] | | | | | | [address] [place], [place] | | | | | | [address] | | | | | | [phone] | | | +--------+ + + + [...] [address] | | | | | | [place], [place] | | | | | | [address] | | | | | | [phone] | | | | | | | | +--------+ + + + + | 09/27/ | Telephone-S | Liver Transplant | Vimal Crowe MD | | | 2019 | cheduled | | [address] | | | | | | [facility] [place], | | | | | | [place] [address] | | | | | | [phone] | | | | | | | [address] | | | | | | [place], [place] | | | | | | [address] | | | | | | [phone] | | | | | | | | +--------+ + + + + documented as of this encounter Visit Diagnoses Not on filedocumented in this encounter"
--- OUTSIDE RECORDS SUMMARY | ~2020-07-29 | XMS | Encounter Summary ---
Demographics + + + | Address | [address] | | | [place] [address] | + + + | Home Phone | | + + + | Preferred Language | Unknown | + + + | Marital Status | Single | + + + | Taoist Affiliation | NON | + + + | Race | White | + + + | Ethnic Group | Not or | + + + Author + + + | Author | [facility] | + + + | Organization | [facility] | + + + | Address | Unknown | + + + | Phone | Unavailable | + + + Support + + + + + | Name | Relationship | Address | Phone | + + + + + | Doreen Manley | ECON | [address] | | | | | [place] | | | | | [address] | | + + + + + Care Team Providers + +------+ + | Care Quotation Clerk Name | Role | Phone | + +------+ + | Sharon David MD | PCP | | + +------+ + Encounter Details +--------+ + + + + | Date | Type | Department | Care Team | Description | +--------+ + + + + | 05/18/ | Pharmacy | Specialty Pharmacy | | | | 2019 | Visit | Services [address] | | | | | | [address] | | | | | | [place], [place] | | | | | | [address] | | | | | | [phone] | | | +--------+ + + + [...] | | 2019 | [place] | | [address] | | | | | | [address] | | | | | | [place], [place] | | | | | | [address] | | | | | | [phone] | | | | | | | | +--------+ + + + + | 09/27/ | Telephone-S | Liver Transplant | Vimal Crowe MD | | | 2019 | cheduled | | [address] | | | | | | [facility] [place], | | | | | | [place] [address] | | | | | | [phone] | | | | | | | | +--------+ + + + + | 10/03/ | Appointment | Cardiology | | | | 2019 | | | | | +--------+ + + + + | 10/03/ | Office | Cardiology | Cyril Samuel | | | 2019 | Visit | | MD Patricia [address] | | | | | | [address] | | | | | | [place], [place] | | | | | | [address] | | | | | | [phone] | | | | | | | | +--------+ + + + + documented as of this encounter Visit Diagnoses Not on filedocumented in this encounter"
--- OUTSIDE RECORDS SUMMARY | ~2020-07-29 | XMS | Encounter Summary ---
Demographics + + + | Address | [address] | | | [place] [address] | + + + | Home Phone | | + + + | Preferred Language | Unknown | + + + | Marital Status | Single | + + + | Jain Affiliation | NON | + + + | Race | White | + + + | Ethnic Group | Not or | + + + Author + + + | Author | [facility] | + + + | Organization | [facility] | + + + | Address | Unknown | + + + | Phone | Unavailable | + + + Support + + + + + | Name | Relationship | Address | Phone | + + + + + | Doreen Manley | ECON | [address] | | | | | [place] | | | | | [address] | | + + + + + Care Team Providers + +------+ + | Care Biomedical Analytical Scientist Name | Role | Phone | + +------+ + | Sharon David MD | PCP | | + +------+ + Encounter Details +--------+ + + + + | Date | Type | Department | Care Team | Description | +--------+ + + + + | 03/30/ | Pharmacy | Outpatient Retail | | | | 2019 | Visit | [facility] | | | | | | [address] | | | | | | [address] [place], [place] | | | | | | [address] | | | | | | [phone] | | | +--------+ + + + [...] [address] | | | | | | [place], [place] | | | | | | [address] | | | | | | [phone] | | | | | | | | +--------+ + + + + | 09/27/ | Telephone-S | Liver Transplant | Vimal Crowe MD | | | 2019 | cheduled | | [address] | | | | | | [facility] [place] [place], | | | | | | [place] [address] | | | | | | [phone] | | | | | | | [address] | | | | | | [place], [place] | | | | | | [address] | | | | | | [phone] | | | | | | | | +--------+ + + + + documented as of this encounter Visit Diagnoses Not on filedocumented in this encounter"
--- OUTSIDE RECORDS SUMMARY | ~2020-07-29 | XMS | Encounter Summary ---
Demographics + + + | Address | [address] | | | [place] [address] | + + + | Home Phone | | + + + | Preferred Language | Unknown | + + + | Marital Status | Single | + + + | Mormonism Affiliation | NON | + + + | Race | White | + + + | Ethnic Group | Not or | + + + Author + + + | Author | [facility] | + + + | Organization | [facility] | + + + | Address | Unknown | + + + | Phone | Unavailable | + + + Support + + + + + | Name | Relationship | Address | Phone | + + + + + | Doreen Manley | ECON | [address] | | | | | [place] | | | | | [address] | | + + + + + Care Team Providers + +------+ + | Care Human Capital Analyst Name | Role | Phone | + +------+ + | Sharon David MD | PCP | | + +------+ + Encounter Details +--------+ + + + + | Date | Type | Department | Care Team | Description | +--------+ + + + + | 06/24/ | MyChart | [facility] | Tyson Bellamy, | Steffen Duran | | 2019 | Encounter | [facility] | [address] | Transplant | | | | [address] [place], | | | | | [address] [facility] | [place] [address] | | | | | [facility], | [phone] | | | | | [facility] | | | | | | [place], [place] | | | | | | [address] | | | | | | [phone] | | | +--------+ + + + [...] this encounter Miscellaneous Notes Telephone Encounter - Madhuri BucknerJAYDE - 06/25/2019 12:28 PM PDTReceived the following me ssage from Dr. Bellamy: Nadiya, Please let his family know I am sorry to hear about what has been going on and I know it mu st be frustrating. Let's do the following. 1. Please find out the status of the chelation co-pay and If we have any options available for them in terms of financial support. 2. He should have an appointment with hematology in [facility] (We requested a referral for co-managment) Please see if that has been set up and when. 3. Please let them know that I communicated with his liver team and I let them know that I would not wait for chelation to start before his liver transplant is considered (chelation w ill very slowly take off the iron but it will take a long time). I let them know I think the y should proceed to transplant as soon as his team thinks it is safe and medically appropria te. Because of the iron in his heart they want him to see cardiology to talk about the risks of possible surgery before going further. If he gets a transplant he will not need chelatio n. We can take the iron off through blood donation. 4. Please send me their contact number and I can call them tomorrow afternoon. Thanks. Let me know if I can help with anything. Best, -TORREY Called patient's sister Richelle but call went to [employer]. Left message informing her of pro cess for chelation medication and completion of forms needed in addition to only being able to obtain this medication from [facility] [employer]. Discussed that he should be set u p with a net developer programmer in the [facility] to help co-manage his case with someone closer to home. Requested she let us know if that appointment has been set up and if this is being done. Informed her of the discussion Dr. Bellamy had with the liver transplant team and the coordination needed with them and cardiology due to the iron on his heart to ensure it is sa fe to proceed with the transplant. Requested a call back if any questions and informed Dr. Kole chan will try calling them today. Phone number for sister Richelle is [phone].Electronic ally signed by Madhuri Buckner RN at 06/25/2019 12:33 PM PDTdocumented in this encounter Plan of Treatment +--------+ + + + + | Date | Type | Specialty | Care Team | Description | +--------+ + + + + | 08/08/ | Telephone-S | Nephrology | Angélica Chao, | | | 2019 | cheduled | | [address] | | | | | | [address] | | | | | | [place], [place] | | | | | | [address] | | | | | | [phone] | | | | | | | | +--------+ + + + + | 09/27/ | Telephone-S | Liver Transplant | Vimal Crowe MD | | | 2019 | cheduled | | [address] | | | | | | [address], | | | | | | [place] [address] | | | | | | [phone] | | | | | | | [...] [address] | | | | | | [place], [place] | | | | | | [address] | | | | | | [phone] | | | | | | | | +--------+ + + + + documented as of this encounter Visit Diagnoses Not on filedocumented in this encounter"
--- OUTSIDE RECORDS SUMMARY | ~2020-07-29 | XMS | Clinical Summary ---
Demographics + + + | Address | [address] | | | [place] [address] | + + + | Home Phone | | + + + | Preferred Language | Unknown | + + + | Marital Status | Single | + + + | Spiritism Affiliation | NON | + + + | Race | White | + + + | Ethnic Group | Not or | + + + Author + + + | Author | [facility] | + + + | Organization | [facility] | + + + | Address | Unknown | + + + | Phone | Unavailable | + + + Support + + + + + | Name | Relationship | Address | Phone | + + + + + | Doreen Manley | ECON | [address] | | | | | [place] | | | | | [phone] | | + + + + + Care Team Providers + +------+ + | Care Alterations Tailor Name | Role | Phone | + +------+ + | Sharon David MD | PCP | | + +------+ + Source Comments SEJAL is fully live on both EpicCare Ambulatory and EpicCare InPatient.[facility] Allergies + + + +--------+ + | Active Allergy | Reactions | Severity | Noted | Comments | | | | | Date | | + + + +--------+ + | Doxycycline | Hives, Rash | Medium | | | + + + +--------+ + Medications + + + +---------+------+------+-------+ | Medication | Sig | Dispensed | Refills | Star | End | Statu | | | | | | t | Date | s | | | | | | Date | | | + + + +---------+------+------+-------+ | aspirin EC 325 mg | Take 1 tablet by | 100 | 5 | 10/2 | | Activ | | oral tablet,delayed | mouth once daily. | tablet | | / | | e | | release (DR/EC) | | | | 19 | | | + + + +---------+------+------+-------+ | Alcohol Swabs | Apply 1 each to | 200 | 1 | 11/0 | | Activ | | topical pads, | affected area five | each | | 4/20 | | e | | medicated | times daily. Use as | | | 19 | | | | | directed. | | | | | | + + + +---------+------+------+-------+ | Insulin [place] | Use as directed for | 150 | 5 | 11/0 | | Activ | | (Disposable) | 5 insulin injections | each | | 4/20 | | e | | (COMFORT EZ PEN | per day. | | | 19 | | | | NEEDLES) 31 gauge x | | | | | | | | 16" miscellaneous | | | | | | | | (misc) needle | | | | | | | + + + +---------+------+------+-------+ | Blood-Glucose | Use as directed. Use | 1 each | 0 | 11/0 | | Activ | | Meter (FREESTYLE | as directed. | | | 02/07 | | e | | LITE METER) | | | | 19 | | | | miscellaneous (misc) | | | | | | | | kit | | | | | | | + + + +---------+------+------+-------+ | lancets (FREESTYLE | Test blood sugar | 150 | 5 | 11/0 | | Activ | | LANCETS) 28 gauge | four times daily | each | | 20 | | e | | miscellaneous (misc) | (before each meal | | | 19 | | | | miscIndications: | and at bedtime). | | | | | | | type 2 diabetes | Indications: type 2 | | | | | | | mellitus | diabetes mellitus | | | | | | + + + +---------+------+------+-------+ | magnesium oxide | Take 2 tablets by | 100 | 5 | 08/22 | | Activ | | 250 mg elemental | mouth two times | tablet | | 12/10 | | e | | oral tablet | daily. | | | 19 | | | + + + +---------+------+------+-------+ +---+ + | | Additional | | | InformationPatient | | | taking differently: | | | 1,200 mg elemental | | | oral TWICE DAILY, | | | Reported on | | | 07/28/2020 11:37 AM | +---+ + + + +---------+---+------+---+-------+ | KARI FERNANDES | Inject 10 Units | 15 mL | 1 | 01/0 | | Activ | | U-100 INSULIN 100 | under the skin | | | 04/09 | | e | | unit/mL (3 mL) | (SUBC) once daily at | | | 20 | | | | subcutaneous insulin | bedtime. | | | | | | | penIndications: | Indications: type 2 | | | | | | | type 2 diabetes | diabetes mellitus | | | | | | | mellitus | | | | | | | + + +---------+---+------+---+-------+ +---+ + | | Additional | | | InformationPatient | | | not taking. Reported | | | on 07/28/2020 11:37 | | | AM | +---+ + + + +--------+---+------+---+-------+ | Blood Sugar | Use 1 test strip to | 100 | 5 | 01/0 | | Activ | | Diagnostic | check blood sugar | each | | 6/20 | | e | | (FREESTYLE LITE | two times daily | | | 20 | | | | STRIPS) | before meals. | | | | | | | miscellaneous (misc) | Indications: type 2 | | | | | | | stripIndications: | diabetes mellitus | | | | | | | type 2 diabetes | | | | | | | | mellitus | | | | | | | + + +--------+---+------+---+-------+ | sodium polystyrene | Take 30 grams now | 60 g | 0 | 01/2 | | Activ | | (KAYEXALATE) oral | and 30 grams tonight | | | 1/20 | | e | | powderIndications: | Indications: high | | | 20 | | | | hyperkalemia | levels of potassium | | | | | | | | in the blood | | | | | | + + +--------+---+------+---+-------+ +---+ + | | Additional | | | InformationPatient | | | not taking. Reported | | | on 07/28/2020 11:37 | | | AM | +---+ + + + +--------+---+------+---+-------+ | glimepiride 1 mg | Take 1 tablet by | 120 | 3 | 01/3 | | Activ | | oral | mouth every morning. | tablet | | 0/20 | | e | | tabletIndications: | Check your blood | | | 20 | | | | type 2 diabetes | glucose every AM | | | | | | | mellitus | before eating and | | | | | | | | every PM before bed. | | | | | | | | If your AM CBG | | | | | | | | (morning blood | | | | | | | | sugar) is > 140 | | | | | | | | mg/dL or PM CBG | | | | | | | | (evening blood | | | | | | | | sugar) >180 mg/dL | | | | | | | | increase dose to 2 | | | | | | | | tabs every AM and | | | | | | | | contact your PCP. | | | | | | | | Indications: type 2 | | | | | | | | diabetes mellitus | | | | | | + + +--------+---+------+---+-------+ +---+ + | | Additional | | | InformationPatient | | | not taking. Reported | | | on 07/28/2020 11:37 | | | AM | +---+ + + + +--------+---+------+---+-------+ | calcium-vitamin D | Take 1 tablet by | | 0 | | | Activ | | 500 mg(1,250mg) -200 | mouth once daily. | | | | | e | | unit oral tablet | | | | | | | + + +--------+---+------+---+-------+ | fludrocortisone | Take 1 tablet by | 30 | 5 | 07/0 | | Activ | | 0.1 mg oral tablet | mouth once daily. | tablet | | 2/20 | | e | | | | | | 20 | | | + + +--------+---+------+---+-------+ | glimepiride 2 mg | Take 1 tablet by | 90 | 4 | 07/0 | | Activ | | oral | mouth once daily | tablet | | 05/09 | | e | | tabletIndications: | with breakfast. | | | 20 | | | | Type 2 diabetes | | | | | | | | mellitus without | | | | | | | | complications (HCC) | | | | | | | + + +--------+---+------+---+-------+ +---+ + | | Additional | | | InformationPatient | | | not taking. Reported | | | on 07/28/2020 11:37 | | | AM | +---+ + + + +--------+---+------+---+-------+ | metoprolol | Take one tablet by | 90 | 4 | 07/0 | | Activ | | succinate 25 mg oral | mouth once daily for | tablet | | 07/10 | | e | | tablet extended | 90 days | | | 20 | | | | release 24 hr | | | | | | | + + +--------+---+------+---+-------+ | isosorbide | Take 20 mg by mouth | | 0 | 03/21 | | Activ | | dinitrate 20 mg oral | three times daily | | | 05/09 | | e | | tablet | before meals. | | | 20 | | | + + +--------+---+------+---+-------+ | diclofenac 1 % | Apply to affected | | 0 | 05/2 | | Activ | | topical gel | area as needed. | | | 8/20 | | e | | | | | | 20 | | | + + +--------+---+------+---+-------+ | amiodarone 200 mg | Take 1 tablet by | 90 | 4 | 07/2 | | Activ | | oral tablet | mouth once daily. | tablet | | 5/20 | | e | | | | | | 20 | | | + + +--------+---+------+---+-------+ | mirtazapine | Take 1 tablet by | 90 | 4 | 07/2 | | Activ | | (REMERON) 30 mg oral | mouth once daily at | tablet | | 5/20 | | e | | tablet | bedtime. | | | 20 | | | + + +--------+---+------+---+-------+ +---+ + | | Additional | | | InformationPatient | | | not taking. Reported | | | on 07/28/2020 11:37 | | | AM | +---+ + + + +---------+---+------+---+-------+ | tacrolimus 0.5 mg | Take 6 capsules in | 900 | 3 | 08/0 | | Activ | | oral | the morning and 4 | capsule | | 4/20 | | e | | capsuleIndications: | capsules in the | | | 20 | | | | prevention of liver | evening. | | | | | | | transplant rejection | Indications: liver | | | | | | | | transplant rejection | | | | | | | | prevention | | | | | | + + +---------+---+------+---+-------+ +---+ + | | Additional | | | InformationPatient | | | taking differently: | | | Take 2 mg in the | | | morning and 1 mg in | | | the evening. | | | Indications: liver | | | transplant rejection | | | prevention, | | | Indications: | | | prevention of liver | | | transplant | | | rejection, Reported | | | on 07/28/2020 11:37 | | | AM | +---+ + + + +---------+----+------+---+-------+ | insulin aspart | Inject per sliding | 15 mL | 12 | 08/0 | | Activ | | U-100 100 unit/mL (3 | scale four times | | | 2/20 | | e | | mL) subcutaneous | daily. Max daily | | | 20 | | | | insulin | dose 40 units.For | | | | | | | penIndications: Type | blood sugar between | | | | | | | 2 diabetes mellitus | 151-200: 2 units; | | | | | | | without | 201-250: 4 units; | | | | | | | complications (HCC) | 251-300: 6 | | | | | | | | cnmex166-837: 8 | | | | | | | | units. >350: 10 | | | | | | | | units. (Short Acting | | | | | | | | Insulin). | | | | | | + + +---------+----+------+---+-------+ +---+ + | | Additional | | | InformationPatient | | | taking differently: | | | 5 Units subcutaneous | | | FOUR TIMES DAILY, | | | Reported on | | | 07/28/2020 11:37 AM | +---+ + + + +---------+----+------+---+-------+ | insulin glargine | Inject 20 Units | 15 mL | 12 | 08/0 | | Activ | | 100 unit/mL (3 mL) | under the skin | | | 12/10 | | e | | subcutaneous insulin | (SUBC) once daily at | | | 20 | | | | penIndications: | bedtime. (Long | | | | | | | Type 2 diabetes | acting insulin). | | | | | | | mellitus without | | | | | | | | complications (HCC) | | | | | | | + + +---------+----+------+---+-------+ | patiromer 8.4 gram | Mix 1 packet and | 14 | 5 | 05/22 | | Activ | | oral powder in | take orally three | packet | | 11/09 | | e | | packetIndications: | times weekly (on | | | 20 | | | | Hyperkalemia | Saturday, Saturday | | | | | | | | and Saturday). | | | | | | + + +---------+----+------+---+-------+ | mycophenolate | Take 2 capsules by | 120 | 3 | 06/22 | | Activ | | (CELLCEPT) 250 mg | mouth two times | capsule | | 06/09 | | e | | oral capsule | daily. Take with | | | 20 | | | | | food. | | | | | | + + +---------+----+------+---+-------+ | apixaban 2.5 mg | Take 2.5 mg by mouth | | 0 | 09/1 | | Activ | | oral tablet | two times daily. | | | 7/20 | | e | | | | | | 20 | | | + + +---------+----+------+---+-------+ | hydrALAZINE 25 mg | Take 1 tablet by | 180 | 1 | 10/0 | | Activ | | oral tablet | mouth three times | tablet | | 8/20 | | e | | | daily. | | | 20 | | | + + +---------+----+------+---+-------+ Active Problems + + | Patient Care Coordination Note | + + | Dr. 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 | 07/24/2019 | + + + | Asymptomatic microscopic hematuria | 05/20/2019 | + + + | Left nephrolithiasis | 05/20/2019 | + + + + + | Overview: 05/19/2019: asymptomatic 4 mm left renal stone | + + + + + | SVT (supraventricular tachycardia) | 04/21/2019 | + + + | Paroxysmal A-fib | 04/21/2019 | + + + | Chronic kidney disease, unspecified CKD stage | 04/21/2019 | + + + | Alcoholic cirrhosis of liver with ascites | 02/27/2019 | + + + | Stage 4 chronic kidney disease | 02/27/2019 | + + + | Hepatorenal syndrome | 02/27/2019 | + + + | Abnormal echocardiogram | 02/27/2019 | + + + | Cirrhosis | | + + + | Stage 4 chronic kidney disease | | + + + Encounters +--------+ + + + + | Date | Type | Specialty | Care Team | Description | +--------+ + + + + | 07/29/ | Telephone | Cardiology | Cyril Samuel | Elian (Hyperkalemia | | 2019 | | | MD Patricia | results) | +--------+ + + + + | 07/29/ | Pharmacy | Pharmacy Services | | | | 2019 | Visit | | | | +--------+ + + + + | 07/28/ | Lab | Phlebotomy | | Abnormal | | 2020 | | | | echocardiogram | +--------+ + + + + | 07/28/ | Office | Cardiology | Cyril Samuel | Abnormal | | 2020 | Visit | Darren Gomez MD | echocardiogram | | | | | | (Primary Dx) | +--------+ + + + + | 07/28/ | Travel | | | | | 2020 | | | | | +--------+ + + + + | 07/26/ | Telephone-S | Liver Transplant | Vimal Crowe MD | | | 2020 | cheduled | | | | +--------+ + + + + | 07/26/ | Abstract | Liver Transplant | Vimal Crowe MD | | | 2019 | | | | | +--------+ + + + + | 07/22/ | Abstract | Liver Transplant | Vimal Crowe MD | | | 2019 | | | | | +--------+ + + + + | 07/21/ | MyCabbyt | Liver Transplant | Vimal Crowe MD | RE: Steffen Duran | | 2019 | Encounter | | | | +--------+ + + + + | 07/21/ | MyChart | Nephrology | Angélica Chao, | RE: Steffen Duran | 2019 | Encounter | | | | +--------+ + + + + | 07/21/ | Pharmacy | Pharmacy Services | | | | 2019 | Visit | | | | +--------+ + + + + | 07/20/ | Pharmacy | Pharmacy Services | | | | 2019 | Visit | | | | +--------+ + + + + | 07/19/ | Pharmacy | Pharmacy Services | | | | 2019 | Visit | | | | +--------+ + + + + | 07/18/ | Documentati | Liver Transplant | Vimal Crowe MD | Liver Transplant | | 2019 | on | | | Follow Up (prograf | | | | | | dose change and | | | | | | restart MMF) | +--------+ + + + + | 07/18/ | Refill | Liver Transplant | Vimal Crowe MD | Refill Request | | 2019 | | | | | +--------+ + + + + | 07/15/ | Abstract | Liver Transplant | Vimal Crowe MD | | | 2019 | | | | | +--------+ + + + + | 07/15/ | Pharmacy | Pharmacy Services | | | | 2019 | Visit | | | | +--------+ + + + + | 07/14/ | Pharmacy | Pharmacy Services | | | | 2019 | Visit | | | | +--------+ + + + + | 07/11/ | Pharmacy | Pharmacy Services | | | | 2019 | Visit | | | | +--------+ + + + + | 07/07/ | Pharmacy | Pharmacy Services | | | | 2019 | Visit | | | | +--------+ + + + + | 07/06/ | Abstract | Liver Transplant | Vimal Crowe MD | Lab Results | | 2019 | | | | ([facility] | | | | | | 07.05.2020) | +--------+ + + + + | 07/05/ | Pharmacy | Pharmacy Services | | | | 2019 | Visit | | | | +--------+ + + + + | 06/30/ | Pharmacy | Pharmacy Services | | | | 2019 | Visit | | | | +--------+ + + + + | 06/29/ | Pharmacy | Pharmacy Services | | | | 2019 | Visit | | | | +--------+ + + + + | 06/28/ | Pharmacy | Pharmacy Services | | | | 2019 | Visit | | | | +--------+ + + + + | 06/24/ | Abstract | Liver Transplant | Vimal Crowe MD | | | 2020 | | | | | +--------+ + + + + | 06/23/ | Pharmacy | Pharmacy Services | | | | 2020 | Visit | | | | +--------+ + + + + | 06/22/ | Pharmacy | Pharmacy Services | | | | 2019 | Visit | | | | +--------+ + + + + | 06/22/ | Documentati | Liver Transplant | Judie Mota, | Liver Transplant | | 2019 | on | | RN | Follow Up | | | | | | (cardiology) | +--------+ + + + + | 06/21/ | Pharmacy | Pharmacy Services | | | | 2019 | Visit | | | | +--------+ + + + + | 06/16/ | Abstract | Liver Transplant | Vimal Crowe MD | | | 2019 | | | | | +--------+ + + + + | 08/27/ | Pharmacy | Pharmacy Services | | | | 2019 | Visit | | | | +--------+ + + + + | 06/15/ | Pharmacy | Pharmacy Services | | | | 2019 | Visit | | | | +--------+ + + + + | 06/13/ | Pharmacy | Pharmacy Services | | | | 2019 | Visit | | | | +--------+ + + + + | 06/09/ | Telephone | Nephrology | Angélica Chao, | Prior Authorization | | 2020 | | | MD | Pita (Divina | | | | | | (Joann)) | +--------+ + + + + | 06/09/ | Pharmacy | Pharmacy Services | | | | 2019 | Visit | | | | +--------+ + + + + | 06/09/ | Telephone | Nephrology | Angélica Chao, | Lab Results | | 2019 | | | MD | | +--------+ + + + + | 06/08/ | Abstract | Liver Transplant | Vimal Crowe MD | | 2019 | | | | | +--------+ + + + + | 06/06/ | Pharmacy | Pharmacy Services | | | | 2019 | Visit | | | | +--------+ + + + + | 06/04/ | MyChart | Nephrology | Angélica Chao, | lab results and | | 2019 | Encounter | | | ultrasound | +--------+ + + + + | 06/03/ | Documentati | Liver Transplant | Cecille Brunner RN | Liver Transplant | | 2019 | on | | | Follow Up (05/30/20 | | | | | | tacrolimus level | | | | | | follow-up) | +--------+ + + + + | 06/02/ | Pharmacy | Pharmacy Services | | | | 2019 | Visit | | | | +--------+ + + + + | 05/31/ | Abstract | Liver Transplant | Vimal Crowe MD | | | 2019 | | | | | +--------+ + + + + | 05/30/ | Pharmacy | Pharmacy Services | | | | 2019 | Visit | | | | +--------+ + + + + | 05/26/ | Pharmacy | Liver Transplant | | | | 2019 | Visit | | | | +--------+ + + + + | 05/26/ | Pharmacy | Pharmacy Services | | | | 2019 | Visit | | | | +--------+ + + + + | 05/25/ | Document-Sc | Liver Transplant | Vimal Crowe MD | | | 2019 | anned | | | | +--------+ + + + + | 05/25/ | Pharmacy | Liver Transplant | | | | 2020 | Visit | | | | +--------+ + + + + | 08/05/ | Pharmacy | Pharmacy Services | | | | 2019 | Visit | | | | +--------+ + + + + | 05/24/ | Documentati | Liver Transplant | Vimal Crowe MD | Liver Transplant | | 2019 | on | | | Follow Up (prograf | | | | | | dose and prograf | | | | | | target 4-6 ) | +--------+ + + + + | 05/24/ | Pharmacy | Pharmacy Services | | | | 2019 | Visit | | | | +--------+ + + + + | 05/24/ | Abstract | Liver Transplant | Vimal Crowe MD | | | 2019 | | | | | +--------+ + + + + | 05/23/ | Results | | Angélica Chao, | | | 2019 | Only | | MD | | +--------+ + + + + | 05/23/ | Pharmacy | Pharmacy Services | | | | 2019 | Visit | | | | +--------+ + + + + | 05/19/ | Abstract | Liver Transplant | Vimal Crowe MD | | | 2019 | | | | | +--------+ + + + + | 05/19/ | Pharmacy | Pharmacy Services | | | | 2019 | Visit | | | | +--------+ + + + + | 05/18/ | Pharmacy | | | | | 2020 | Visit | | | | +--------+ + + + + | 05/18/ | Pharmacy | Pharmacy Services | | | | 2020 | Visit | | | | +--------+ + + + + | 05/17/ | Documentati | Nephrology | Angélica Chao, | | | 2019 | on | | MD | | +--------+ + + + + | 05/17/ | Telephone | Nephrology | Angélica Chao, | | | 2019 | | | MD | | +--------+ + + + + | 05/17/ | Pharmacy | Pharmacy Services | | | | 2020 | Visit | | | | +--------+ + + + + | 05/17/ | Telephone | Nephrology | Angélica Chao, | | | 2019 | | | MD | | +--------+ + + + + | 05/16/ | Telephone-S | Nephrology | Angélica Chao, | Follow-up visit | | 2019 | cheduled | | MD | | +--------+ + + + + | 05/16/ | Pharmacy | Pharmacy Services | | | | 2019 | Visit | | | | +--------+ + + + + | 05/13/ | MyChart | Nephrology | Angélica Chao, | | | 2019 | Encounter | | MD | | +--------+ + + + + | 05/13/ | Pharmacy | Liver Transplant | | | | 2019 | Visit | | | | +--------+ + + + + | 05/13/ | Pharmacy | Pharmacy Services | | | | 2019 | Visit | | | | +--------+ + + + + | 05/12/ | Pharmacy | Pharmacy Services | | | | 2019 | Visit | | | | +--------+ + + + + | 05/12/ | Documentati | Liver Transplant | Cecille Brunner RN | Liver Transplant | | 2019 | on | | | Follow Up (DEXA | | | | | | results follow-up) | +--------+ + + + + | 05/12/ | Pharmacy | | | | | 2019 | Visit | | | | +--------+ + + + + | 05/10/ | Abstract | Liver Transplant | Vimal Crowe MD | | | 2019 | | | | | +--------+ + + + + | 05/10/ | Refill | Liver Transplant | Sharon David | Refill Request | | 2019 | | | MD Lei | | +--------+ + + + + | 05/10/ | Pharmacy | Pharmacy Services | | | 2019 | Visit | | | | +--------+ + + + + | 05/09/ | Results | | Angélica Chao, | | | 2019 | Only | | | | +--------+ + + + + | 05/09/ | Pharmacy | Pharmacy Services | | | | 2019 | Visit | | | | +--------+ + + + + | 05/09/ | Refill | Liver Transplant | Pattie Ignacio, | Refill Request | | 2019 | | | PAIhsan | | +--------+ + + + + | 05/09/ | Refill | Liver Transplant | Una Anthony MD | Refill Request | | 2019 | | | | | +--------+ + + + + | 05/03/ | Abstract | Liver Transplant | Vimal Crowe MD | | | 2020 | | | | | +--------+ + + + + | 05/03/ | Pharmacy | Pharmacy Services | | | | 2019 | Visit | | | | +--------+ + + + + | 05/03/ | Telephone | Liver Transplant | Liv Stephenson, | Social Work Notes | | 2019 | | | [employer] | | +--------+ + + + + | 04/29/ | Pharmacy | Pharmacy Services | | | | 2019 | Visit | | | | +--------+ + + + + | 04/28/ | Documentati | Liver Transplant | Vimal Crowe MD | Liver Transplant | | 2019 | on | | | Follow Up (prograf | | | | | | dose ) | +--------+ + + + + | 07/09/ | Pharmacy | Liver Transplant | | | | 2019 | Visit | | | | +--------+ + + + + | 04/28/ | Pharmacy | Pharmacy Services | | | | 2019 | Visit | | | | +--------+ + + + + | 04/28/ | Telephone | Nephrology | Angélica Chao, | Lab Results | | 2019 | | | MD | | +--------+ + + + + from Last 3 Months Immunizations + + + + | Name | Administration Dates | Next Due | + + + + | HepA-HepB | 04/06/2019, 03/03/2019 | | + + + + | Hepatitis B | 04/22/2019 () | | | (He[facility]isav) | | | + + + + | PCV13 | 04/06/2019 | | + + + + | Pneumococcal 23 | 04/22/2019 (Deferred: - Reports had | | | | immunization in February) | | + + + + | Tdap | 07/24/2016 | | + + + + Family History + + +------+ + | Medical History | Relation | Name | Comments | + + +------+ + | Liver cancer | Neg Hx | | | + + +------+ + + +------+--------+ + | Relation | Name | Status | Comments | + +------+--------+ + | Mother | | Alive | | + +------+--------+ + Social History + +-------+ +--------+------+ | Tobacco Use | Types | Packs/Day | Years | Date | | | | | Used | | + +-------+ +--------+------+ | Never Smoker | | | | | + +-------+ +--------+------+ + +------+---+ + | Smokeless Tobacco: | Chew | | Quit: | | Former User | | | 07/01/20 | | | | | 19 | [...] on file | | + + + + + + + | COVID-19 Exposure | Response | Date Recorded | + + + + | In the last month, have you been in contact | No / Unsure | 07/28/2020 10:35 AM | | with someone who was confirmed or | | PDT | | suspected to have Coronavirus / COVID-19? | | | + + + + Last Filed Vital Signs + + + + + | Vital Sign | Reading | Time Taken | Comments | + + + + + | Blood Pressure | 151/75 | 07/28/2020 11:27 AM | | | | | PDT | | + + + + + | Pulse | 60 | 07/28/2020 11:27 AM | | | | | PDT | | + + + + + | Temperature | 35.9 C (96.6 F) | 07/28/2020 11:27 AM | | | | | PDT | | + + + + + | Respiratory Rate | 16 | 07/28/2020 11:27 AM | | | | | PDT | | + + + + + | Oxygen Saturation | 100% | 07/28/2020 11:27 AM | | | | | PDT | | + + + + + | Inhaled Oxygen | - | - | | | Concentration | | | | + + + + + | Weight | 89 kg (196 lb 3.2 | 07/28/2020 11:27 AM | | | | oz) | PDT | | + + + + + | Height | 180.3 cm (5' 11") | 11/17/2019 11:13 AM | pt reported | | | | PST | | + + + + + | Body Mass Index | 27.36 | 11/17/2019 11:13 AM | | | | | PST | | + + + + + Plan of Treatment +--------+ + + + + | Date | Type | Specialty | Care Team | Description | +--------+ + + + + | 08/08/ | Telephone-S | Nephrology | Angélica Chao, | | | 2019 | [place] | | [address] [facility] | | | | | | [address] | | | | | | [place], [place] | | | | | | [address] | | | | | | [phone] | | | | | | | | +--------+ + + + + | 09/27/ | Telephone-S | Liver Transplant | Vimal Crowe MD | | | 2019 | [place] | | [address] | | | | | | [address], | | | | | | [place] [address] | | | | | | [phone] | | | | | | | | +--------+ + + + + | 10/03/ | Appointment | Cardiology | | | | 2019 | | | | | +--------+ + + + + | 10/03/ | Office | Cardiology | Cyril Samuel | | | 2019 | Visit | | MD Patricia [address] [facility] | | | | | | [address] | | | | | | [place], [place] | | | | | | [address] | | | | | | [phone] | | | | | | | | +--------+ + + + + + + + + + | Health Maintenance | Due Date | Last | Comments | | | | Done | | + + + + + | Pneumococcal | | 04/06/20 | | | vaccination (2 of 3 | 9 | 19, | | | - PPSV23) | | 03/03/20 | | | | | 19 | | + + + + + | Hepatocellular | | 07/17/20 | | | carcinoma screening | 0 | 19, | | | | | 05/19/20 | | | | | 19, | | | | | 04/22/20 | | | | | 19, | | | | | Addition | | | | | al | | | | | history | | | | | exists | | + + + + + | Influenza (Flu) | Completed | 07/07/20 | | | vaccination | | 20 | | + + + + + Procedures + +--------+ + + + | Procedure Name | Priori | Date/Time | Associated Diagnosis | Comments | | | ty | | | | + +--------+ + + + | CBC AND AUTO DIFF | Routin | 07/28/2020 | Abnormal | Results for this | | | e | 12:47 PM | echocardiogram | procedure are in the | | | | PDT | | results section. | + +--------+ + + + | IRON AND TIBC, SERUM | Routin | 07/28/2020 | Abnormal | Results for this | | | e | 12:47 PM | echocardiogram | procedure are in the | | | | PDT | | results section. | + +--------+ + + + | FERRITIN | Routin | 07/28/2020 | Abnormal | Results for this | | | e | 12:47 PM | echocardiogram | procedure are in the | | | | PDT | | results section. | + +--------+ + + + | NT-PRO BNP | Routin | 07/28/2020 | Abnormal | Results for this | | | e | 12:47 PM | echocardiogram | procedure are in the | | | | PDT | | results section. | + +--------+ + + + | COMPLETE METABOLIC | Routin | 07/28/2020 | Abnormal | Results for this | | SET | e | 12:47 PM | echocardiogram | procedure are in the | | (NA,K,CL,CO2,BUN,CRE | | PDT | | results section. | | AT,GLUC,CA,AST,ALT,B | | | | | | KEV TOTAL,ALK | | | | | | PHOS,ALB,PROT TOTAL) | | | | | + +--------+ + + + | CBC, WITH | Routin | 07/28/2020 | Abnormal | Results for this | | DIFFERENTIAL | e | 12:47 PM | echocardiogram | procedure are in the | | | | PDT | | results section. | + +--------+ + + + | 12 LEAD ECG | Routin | 07/28/2020 | Abnormal | | | | e | 12:25 PM | echocardiogram | | | | | PDT | | | + +--------+ + + + | LIVER TRANSPLANT | Routin | 07/25/2020 | | Results for this | | POST PANEL (EXT | e | 11:49 AM | | procedure are in the | | RESULTS) | | PDT | | results section. | + +--------+ + + + | LIVER TRANSPLANT | Routin | 07/19/2020 | | Results for this | | POST PANEL (EXT | e | 11:24 AM | | procedure are in the | | RESULTS) | | PDT | | results section. | + +--------+ + + + | LIVER TRANSPLANT | Routin | 07/12/2020 | | Results for this | | POST PANEL (EXT | e | 9:52 AM | | procedure are in the | | RESULTS) | | PDT | | results section. | + +--------+ + + + | LIVER TRANSPLANT | Routin | 07/05/2020 | | Results for this | | POST PANEL (EXT | e | 9:40 AM | | procedure are in the | | RESULTS) | | PDT | | results section. | + +--------+ + + + | LIVER TRANSPLANT | Routin | 06/23/2020 | | Results for this | | POST PANEL (EXT | e | 10:37 AM | | procedure are in the | | RESULTS) | | PDT | | results section. | + +--------+ + + + | LIVER TRANSPLANT | Routin | 06/16/2020 | | Results for this | | POST PANEL (EXT | e | 9:20 AM | | procedure are in the [...] + | LIVER TRANSPLANT | Routin | 05/30/2020 | | Results for this | | POST PANEL (EXT | e | 7:22 AM | | procedure are in the | | RESULTS) | | PDT | | results section. | + +--------+ + + + | CULTURE, URINE BACTI | Routin | 05/23/2020 | | Results for this | | | e | 7:28 AM | | procedure are in the | | | | PDT | | results section. | + +--------+ + + + | LIVER TRANSPLANT | Routin | 05/23/2020 | | Results for this | | POST PANEL (EXT | e | 7:28 AM | | procedure are in the | | RESULTS) | | PDT | | results section. | + +--------+ + + + | URINE | Routin | 05/23/2020 | | Results for this | | PROTEIN/CREATININE | e | 7:28 AM | | procedure are in the | | RATIO | | PDT | | results section. | + +--------+ + + + | CULTURE, URINE | Routin | 05/23/2020 | | Results for this | | | e | 7:28 AM | | procedure are in the | | | | PDT | | results section. | + +--------+ + + + | URINALYSIS AND | Routin | 05/23/2020 | | Results for this | | MICROSCOPIC | e | 7:28 AM | | procedure are in the | | | | PDT | | results section. | + +--------+ + + + | LIVER TRANSPLANT | Routin | 05/16/2020 | | Results for this | | POST PANEL (EXT | e | 8:46 AM | | procedure are in the | | RESULTS) | | PDT | | results section. | + +--------+ + + + | LIVER TRANSPLANT | Routin | 05/09/2020 | | Results for this | | POST PANEL (EXT | e | 8:15 AM | | procedure are in the | | RESULTS) | | PDT | | results section. | + +--------+ + + + | RENAL FUNCTION SET | Routin | 05/09/2020 | | Results for this | | (NA,K,CL,CO2,BUN,CRE | e | 8:15 AM | | procedure are in the | | AT,GLUC,CA,PHOS,ALB | | PDT | | results section. | | ) | | | | | + +--------+ + + + | RENAL FUNCTION SET | Routin | 05/09/2020 | Acute kidney | Results for this | | (NA,K,CL,CO2,BUN,CRE | e | | injury superimposed | procedure are in the | | AT,GLUC,CA,PHOS,ALB | | | on CKD ([facility]) | results section. | | ) | | | | | + +--------+ + + + | PROTEIN/CREATININE | Routin | 05/09/2020 | Acute kidney | Results for this | | RATIO, URINE | e | | injury superimposed | procedure are in the | | | | | on CKD ([facility]) | results section. | + +--------+ + + + | LIVER TRANSPLANT | Routin | 05/02/2020 | | Results for this | | POST PANEL (EXT | e | 6:48 AM | | procedure are in the | | RESULTS) | | PDT | | results section. | + +--------+ + + + from Last 3 Months Results NT-PRO BNP (07/28/2020 12:47 PM PDT) + + + + + + | Component | Value | Ref Range | Performed | Pathologist | | | | | At | Signature | + + + + + + | NT-PRO BNP | 2,518 (H) | <125 pg/mL | [facility] | | | | | | LABORATORY | | | | | | SERVICES, | | | | | | CORE | | + + + + + + + + | Specimen | + + | Blood - Blood | | (substance) | + + + + + + + | Performing | Address | City/State/Zipcode | Phone Number | | Organization | | | | + + + + + | [facility] | [address] | [place] [address] | | | SERVICES, CORE | [address] | | | + + + + + CBC AND AUTO DIFF (07/28/2020 12:47 PM PDT) + + + + + + | Component | Value | Ref Range | Performed | Pathologist | | | | | At | Signature | + + + + + + | WHITE CELL | 7.06 | 3.50 - 10.80 | [facility] | | | COUNT | | K/cu mm | LABORATORY | | | | | | SERVICES, | | | | | | [facility] | | | | | | [facility] | | + + + + + + | RED CELL | 3.74 (L) | 4.50 - 6.00 | [facility] | | | COUNT | | M/cu mm | LABORATORY | | | | | | SERVICES, | | | | | | [facility] + | | | | | | [facility] | | + + + + + + | HEMOGLOBIN | 11.1 (L) | 13.5 - 17.5 | [facility] | | | | | g/dL | LABORATORY | | | | | | SERVICES, | | | | | | [facility] + | | | | | | [facility] | | + + + + + + | HEMATOCRIT | 32.1 (L) | 41.0 - 53.0 % | [facility] | | | | | | LABORATORY | | | | | | SERVICES, | | | | | | [facility] + | | | | | | [facility] | | + + + + + + | MCV | 85.8 | 80.0 - 100.0 fL | [facility] | | | | | | LABORATORY | | | | | | SERVICES, | | | | | | [facility] + | | | | | | [facility] | | + + + + + + | MCHC | 34.6 | 32.0 - 36.0 | [facility] | | | | | g/dL | LABORATORY | | | | | | SERVICES, | | | | | | [facility] + | | | | | | [facility] | | + + + + + + | RDW SD | 43.3 | 35.1 - 46.3 fL | [facility] | | | | | | LABORATORY | | | | | | SERVICES, | | | | | | [facility] + | | | | | | [facility] | | + + + + + + | PLATELET | 128 (L) | 150 - 400 K/cu | [facility] | | | COUNT | | mm | LABORATORY | | | | | | SERVICES, | | | | | | [facility] + | | | | | | [facility] | | + + + + + + | MPV | 9.9 | 9.7 - 12.3 fL | [facility] | | | | | | LABORATORY | | | | | | SERVICES, | | | | | | [facility] + | | | | | | [facility] | | + + + + + + | NRBC% | 0.0 | 0.0 - 0.3 % | [facility] | | | | | | LABORATORY | | | | | | SERVICES, | | | | | | [facility] + | | | | | | [facility] | | + + + + + + | NRBC# | 0.00 | 0.00 - 0.02 | [facility] | | | | | K/cu mm | LABORATORY | | | | | | SERVICES, | | | | | | [facility] + | | | | | | [facility] | | + + + + + + | NEUTROPHIL | 65.3 | 50.0 - 70.0 % | [facility] | | | % | | | LABORATORY | | | | | | SERVICES, | | | | | | [facility] + | | | | | | [facility] | | + + + + + + | LYMPHOCYTE | 24.6 | 18.0 - 42.0 % | [facility] | | | % | | | LABORATORY | | | | | | SERVICES, | | | | | | [facility] + | | | | | | [facility]AL[facility] | | + + + + + + | MONOCYTE % | 6.5 | 3.5 - 9.0 % | [facility] | | | | | | LABORATORY | | | | | | SERVICES, | | | | | | [facility] + | | | | | | [facility] | | + + + + + + | EOS % | 3.1 (H) | 1.0 - 3.0 % | [facility] | | | | | | LABORATORY | | | | | | SERVICES, | | | | | | [facility] + | | | | | | [facility]AL[facility] | | + + + + + + | BASO % | 0.4 | 0.0 - 2.0 % | [facility] | | | | | | LABORATORY | | | | | | SERVICES, | | | | | | [facility] + | | | | | | [facility]AL[facility] | | + + + + + + | IG% | 0.1 | 0.0 - 1.0 % | [facility] | | | | | | LABORATORY | | | | | | SERVICES, | | | | | | [facility] + | | | | | | [facility]AL[facility] | | + + + + + + | NEUTROPHIL | 4.60 | 1.80 - 7.70 | [facility] | | | # | | K/cu mm | LABORATORY | | | | | | SERVICES, | | | | | | [facility] + | | | | | | [facility]AL[facility] | | + + + + + + | NEUTROPHIL | 4.60Comment: Preliminary | 1.80 - 7.70 | [facility] | | | # Prelim | automated neutrophil | K/cu mm | LABORATORY | | | | result. Refer to | | SERVICES, | | | | Neutrophil # for final | | [facility] | | | | neutrophil result, which | | HEALTH + | | | | may differ from this | | HEALING | | | | preliminary value. | | | | + + + + + + | LYMPHOCYTE | 1.74 | 1.00 - 4.80 | [facility] | | | # | | K/cu mm | LABORATORY | | | | | | SERVICES, | | | | | | [facility] + | | | | | | [facility]ALING | | + + + + + + | MONOCYTE # | 0.46 | 0.10 - 0.90 | [facility] | | | | | K/cu mm | LABORATORY | | | | | | SERVICES, | | | | | | [facility] + | | | | | | [facility]ALING | | + + + + + + | EOS # | 0.22 | 0.00 - 0.50 | [facility] | | | | | K/cu mm | LABORATORY | | | | | | SERVICES, | | | | | | [facility] + | | | | | | [facility]ALING | | + + + + + + | BASO # | 0.03 | 0.00 - 0.10 | [facility] | | | | | K/cu mm | LABORATORY | | | | | | SERVICES, | | | | | | [facility] | [facility] + | | | | | | [facility]ALING | | + + + + + + | IG# | 0.01 | 0.00 - 0.10 | [facility] | | | | | K/cu mm | LABORATORY | | | | | | SERVICES, | | | | | | [facility] | [facility] + | | | | | | [facility]ALING | | + + + + + + + + | Specimen | + + | Blood - Blood | | (substance) | + + + + + | Narrative | Performed At | + + + | Increased immature granulocytes (IG) define a left shift. Immature | [facility] | | granulocytes (IG) are an automated count of metamyelocytes, myelocytes | LABORATORY | | and promyelocytes. Bands are not included in the IG count. Bands are | SERVICES, | | included in the neutrophil count. | [facility] + | | | [facility] | + + + + + + + + | Performing | Address | City/State/Zipcode | Phone Number | | Organization | | | | + + + + + | [facility] | [address] | [place] [address] | | | SERVICES, [facility] | | | | HE[facility] + HEALING | | | | + + + + + COMPLETE METABOLIC SET (NA,K,CL,CO2,BUN,CREAT,GLUC,CA,AST,ALT,BILI TOTAL,ALK PHOS,ALB,PROT TOTAL) (07/28/2020 12:47 PM PDT) + + + + + + | Component | Value | Ref Range | Performed | Pathologist | | | | | At | Signature | + + + + + + | GLUCOSE, | 328 (H) | 70 - 99 mg/dL | [facility] | | | PLASMA | | | LABORATORY | | | (LAB) | | | SERVICES, | | | | | | [facility] | [facility] + | | | | | | [facility]AL[facility] | | + + + + + + | BUN, PLASMA | 42 (H) | 6 - 20 mg/dL | [facility] | | | (LAB) | | | LABORATORY | | | | | | SERVICES, | | | | | | [facility] + | | | | | | [facility]ALING | | + + + + + + | CREATININE | 2.73 (H) | 0.70 - 1.30 | [facility] | | | PLASMA | | mg/dL | LABORATORY | | | (LAB) | | | SERVICES, | | | | | | [facility] + | | | | | | [facility]ALING | | + + + + + + | EGFR | 29 (L) | >60 mL/min | [facility] | | | - | | | LABORATORY | | | CYPRIOT | | | SERVICES, | | | | | | [facility] + | | | | | | [facility]AL[facility] | | + + + + + + | EGFR NON | 24 (L) | >60 mL/min | [facility] | | | -COREY | | | LABORATORY | | | RICAN | | | SERVICES, | | | | | | [facility] + | | | | | | [facility]ALING | | + + + + + + | SODIUM, | 134 (L) | 136 - 145 | [facility] | | | PLASMA | | mmol/L | LABORATORY | | | (LAB) | | | SERVICES, | | | | | | [facility] + | | | | | | [facility]ALING | | + + + + + + | POTASSIUM, | 5.8 (H) | 3.4 - 5.0 | [facility] | | | PLASMA | | mmol/L | LABORATORY | | | (LAB) | | | SERVICES, | | | | | | [facility] | [facility] + | | | | | | [facility]ALING | | + + + + + + | CHLORIDE, | 98 | 97 - 108 mmol/L | [facility] | | | PLASMA | | | LABORATORY | | | (LAB) | | | SERVICES, | | | | | | [facility] | [facility] + | | | | | | HEALING | | + + + + + + | TOTAL CO2, | 30 | 21 - 32 mmol/L | [facility] | | | PLASMA | | | LABORATORY | | | (LAB) | | | SERVICES, | | | | | | [facility] | [facility] + | | | | | | [facility]ALING | | + + + + + + | CALCIUM, | 9.8 | 8.6 - 10.2 | [facility] | | | PLASMA | | mg/dL | LABORATORY | | | (LAB) | | | SERVICES, | | | | | | [facility] | [facility] + | | | | | | [facility]ALING | | + + + + + + | CALCIUM(ALB | 9.6 | 8.6 - 10.2 | [facility] | | | CORRECTED) | | mg/dL | LABORATORY | | | | | | SERVICES, | | | | | | [facility] + | | | | | | [facility]ALING | | + + + + + + | BILIRUBIN | 0.5 | 0.3 - 1.2 mg/dL | [facility] | | | TOTAL | | | LABORATORY | | | | | | SERVICES, | | | | | | [facility] | [facility] + | | | | | | HEALING | | + + + + + + | TOTAL | 8.2 | 6.4 - 8.2 g/dL | [facility] | | | PROTEIN, | | | LABORATORY | | | PLASMA | | | SERVICES, | | | (LAB) | | | [facility] | [facility] + | | | | | | [facility]ALING | | + + + + + + | ALBUMIN, | 4.3 | 3.5 - 4.7 g/dL | [facility] | | | PLASMA | | | LABORATORY | | | (LAB) | | | SERVICES, | | | | | | [facility] | [facility] + | | | | | | [facility]ALING | | + + + + + + | ALK PHOS | 104 | 53 - 128 U/L | [facility] | | | | | | LABORATORY | | | | | | SERVICES, | | | | | | [facility] + | | | | | | [facility]ALING | | + + + + + + | AST(SGOT) | 16 | <=41 U/L | [facility] | | | | | | LABORATORY | | | | | | SERVICES, | | | | | | [facility] | [facility] + | | | | | | [facility]ALING | | + + + + + + | ALT (SGPT) | 27 | <=60 U/L | [facility] | | | | | | LABORATORY | | | | | | SERVICES, | | | | | | [facility] + | | | | | | [facility]ALING | | + + + + + + | ANION GAP | 6 | 4 - 11 mmol/L | [facility] | | | | | | LABORATORY | | | | | | SERVICES, | | | | | | [facility] | [facility] + | | | | | | [facility]ALING | | + + + + + + | ANION | 5 | 4 - 11 mmol/L | [facility] | | | GAP(ALB | | | LABORATORY | | | CORRECTED) | | | SERVICES, | | | | | | [facility] | | [facility] + | | | | | | [facility]ALING | | + + + + + + | POTASSIUM | No Hemo | | [facility] | | | CMNT | | | LABORATORY | | | | | | SERVICES, | | | | | | [facility] + | | | | | | HEALING | | + + + + + + | BILI T CMNT | No Hemo | | [facility] | | | | | | LABORATORY | | | | | | SERVICES, | | | | | | [facility] + | | | | | | HEALING | | + + + + + + | AST CMNT | No Hemo | | [facility] | | | | | | LABORATORY | | | | | | SERVICES, | | | | | | [facility] | [facility] + | | | | | | [facility]ALING | | + + + + + + | BUN/CREATIN | 15 | 8 - 25 | [facility] | | | INE RATIO | | | LABORATORY | | | | | | SERVICES, | | | | | | [facility] | [facility] + | | | | | | [facility]ALING | | + + + + + + | GLOBULIN | 3.9 (H) | 2.3 - 3.5 gm/dL | [facility] | | | LVL | | | LABORATORY | | | | | | SERVICES, | | | | | | [facility] | [facility] + | | | | | | HEALING | | + + + + + + | ALBUMIN/MARITZA | 1.1 | 0.7 - 2.8 | [facility] | | | BULIN RATIO | | | LABORATORY | | | | | | SERVICES, | | | | | | [facility] | [facility] + | | | | | | [facility]ALING | | + + + + + + + + | Specimen | + + | Blood - Blood | | (substance) | + + + + + | Narrative | Performed At | + + + | GFR is estimated using the MDRD equation recommended by the National | [place] | | Kidney Disease Education Program. Estimated GFR Interpretive | LABORATORY | | Information: <60 mL/min/1.73 sq m Chronic Kidney | SERVICES, | | Disease <15 mL/min/1.73 sq m Kidney Failure | [facility] | | Estimated GFR greater than 60 mL/min/1.73 sq m is of limited clinical | HEALTH + | | value. The MDRD equation is not valid in the following situations: | HEALING | | - Patients under 18 years of age - Severe malnutrition or obesity | | | - Vegetarian diet - Rapidly changing kidney function - Amputees, | | | paraplegics, or other muscle-wasting diseases | | + + + + + + + + | Performing | Address | City/State/[facility] | Phone Number | | Organization | | | | + + + + + | [facility] | [address] | [place] [address] | | | SERVICES, [facility] | | | | | HEALTH + HEALING | | | | + + + + + FERRITIN (07/28/2020 12:47 PM PDT) + + + + + + | Component | Value | Ref Range | Performed | Pathologist | | | | | At | Signature | + + + + + + | FERRITIN | 521Comment: Male and | 50 - 530 ng/mL | [facility] | | | | Female >18 years: | | LABORATORY | | | | <20 ng/mL: | | SERVICES, | | | | Consistant with iron | | CORE | | | | deficiency 21-50 | | | | | | ng/mL: Possible | | | | | | iron deficiency 51-99 | | | | | | ng/mL: Iron | | | | | | deficiency unlikely | | | | | | unless inflammation | | | | | | present or | | | | | | patient | | | | | | >65 years of age | | | | | | 100-200 ng/mL: | | | | | | Normal, not consistent | | | | | | with iron deficiency | | | | | | >200 ng/mL: If | | | | | | transferrin saturation | | | | | | >45%, consider | | | | | | hemochromatosis | | | | + + + + + + + + | Specimen | + + | Blood - Blood | | (substance) | + + + + + + + | Performing | Address | City/State/Zipcode | Phone Number | | Organization | | | | + + + + + | [facility] | [address] | [place] [address] | | | SERVICES, CORE | [address] | | | + + + + + IRON AND TIBC (07/28/2020 12:47 PM PDT) + +-------+ + + + | Component | Value | Ref Range | Performed | Pathologist | | | | | At | Signature | + +-------+ + + + | IRON | 69 | 50 - 170 ug/dL | [facility] | | | | | | LABORATORY | | | | | | SERVICES, | | | | | | CORE | | + +-------+ + + + | IRON BIND | 302 | 240 - 450 ug/dL | [facility] | | | CAP | | | LABORATORY | | | | | | SERVICES, | | | | | | CORE | | + +-------+ + + + | % | 23 | 20 - 50 % | [facility] | | | SATURATION | | | LABORATORY | | | TRANSFERRIN | | | SERVICES, | | | , | | | CORE | | + +-------+ + + + + + | Specimen | + + | Blood - Blood | | (substance) | + + + + + + + | Performing | Address | City/State/Zipcode | Phone Number | | Organization | | | | + + + + + | [facility] | [address] | [place] [address] | | | SERVICES, CORE | [address] | | | + + + + + LIVER TRANSPLANT POST PANEL (EXT RESULTS) (07/25/2020 11:49 AM PDT)Only the most recent of 12 results within the time period is included. + +-------+ + + + | Component | Value | Ref Range | Performed | Pathologist | | | | | At | Signature | + +-------+ + + + | SODIUM, | 140 | mmol/L | [facility] | | | PLASMA | | | LAB - | | | (LAB) | | | [place] | | + +-------+ + + + | POTASSIUM, | 5.1 | mmol/L | [facility] | | | PLASMA | | | LAB - | | | (LAB) | | | [place] | | + +-------+ + + + | CHLORIDE, | 100 | mmol/L | [facility] | | | PLASMA | | | LAB - | | | (LAB) | | | [place] | | + +-------+ + + + | TOTAL CO2, | 27 | mmol/L | [facility] | | | PLASMA | | | LAB - | | | (LAB) | | | [place] | | + +-------+ + + + | GLUCOSE, | 226 | | [facility] | | | PLASMA | | | LAB - | | | (LAB) | | | [place] | | + +-------+ + + + | BUN, PLASMA | 42 | mg/dL | [facility] | | | (LAB) | | | LAB - | | | | | | [place] | | + +-------+ + + + | CREATININE | 2.67 | mg/dL | [facility] | | | PLASMA | | | LAB - | | | (LAB) | | | [place] | | + +-------+ + + + | CALCIUM, | 9.9 | mg/dL | [facility] | | | PLASMA | | | LAB - | | | (LAB) | | | [place] | | + +-------+ + + + | PHOSPHORUS, | 4.3 | mg/dL | [facility] | | | PLASMA | | | LAB - | | | (LAB) | | | [place] | | + +-------+ + + + | MAGNESIUM,P | 2.5 | mg/dL | [facility] | | | LASMA | | | LAB - | | | | | | [place] | | + +-------+ + + + | TOTAL | 6.9 | g/dL | [facility] | | | PROTEIN, | | | LAB - | | | PLASMA | | | [place] | | | (LAB) | | | | | + +-------+ + + + | ALBUMIN, | 4.2 | g/dL | [facility] | | | PLASMA | | | LAB - | | | (LAB) | | | [place] | | + +-------+ + + + | BILIRUBIN | 0.5 | Transcutaneous | [facility] | | | TOTAL | | Bilirubinometer | LAB - | | | | | | [place] | | + +-------+ + + + | BILIRUBIN | 0.1 | mg/dL | [facility] | | | DIRECT | | | LAB - | | | | | | [place] | | + +-------+ + + + | ALK PHOS | 87 | U/L | [facility] | | | | | | LAB - | | | | | | [place] | | + +-------+ + + + | AST(SGOT) | 16 | U/L | [facility] | | | | | | LAB - | | | | | | [place] | | + +-------+ + + + | ALT (SGPT) | 20 | U/L | [facility] | | | | | | LAB - | | | | | | [place] | | + +-------+ + + + | URIC ACID, | 7.4 | mg/dL | [facility] | | | PLASMA | | | LAB - | | | (LAB) | | | [place] | | + +-------+ + + + | WHITE CELL | 4.4 | K/cu mm | [facility] | | | COUNT | | | LAB - | | | | | | [place] | | + +-------+ + + + | HEMOGLOBIN | 14.2 | 13.5 - 17.5 | [facility] | | | | | g/dL | LAB - | | | | | | [place] | | + +-------+ + + + | HEMATOCRIT | 40.9 | % | [facility] | | | | | | LAB - | | | | | | [place] | | + +-------+ + + + | PLATELET | 87 | K/cu mm | [facility] | | | COUNT | | | LAB - | | | | | | [place] | | + +-------+ + + + | TACROLIMUS | pend | ng/mL | [facility] | | | ([address]) | | | LAB - | | | | | | [place] | | + +-------+ + + + + + | Specimen [...] + + | [facility] - | [address] | [place] | [phone] | | [place] | | | | + + + + + URINE PROTEIN/CREATININE RATIO (05/23/2020 7:28 AM PDT) + +-------+ + + + | Component | Value | Ref Range | Performed | Pathologist | | | | | At | Signature | + +-------+ + + + | PROTEIN, | 12 | 0.0 - 50.0 | [facility] | | | URINE | | mg/dL | LAB - | | | | | | [place] | | + +-------+ + + + | CREATININE | 35.48 | mg/dL | [facility] | | | CONC UR | | | LAB - | | | | | | [place] | | + +-------+ + + + + + | Specimen | + + | | + + + + + | Narrative | Performed At | + + + | Testing Performed at: [facility] CLIA: [id number] - [address] | [facility] | | [place] [address] | - [place] | + + + + + + + + | Performing | Address | City/State/Zipcode | Phone Number | | Organization | | | | + + + + + | [facility] - | [address] [place], [place] | [phone] | | [place] | | | | + + + + + CULTURE, URINE (05/23/2020 7:28 AM PDT) + + + + + + | Component | Value | Ref Range | Performed | Pathologist | | | | | At | Signature | + + + + + + | CULTURE | TO FOLLOWComment: Urine | | [facility] | | | RESULT | Culture to follow on a | | LAB - | | | URINE | separate report | | [place] | | + + + + + + + + | Specimen | + + | | + + + + + | Narrative | Performed At | + + + | Testing Performed at: [facility] CLIA: [id number] - [address] | [facility] | | [place] [address] | - [place] | + + + + + + + + | Performing | Address | City/State/Zipcode | Phone Number | | Organization | | | | + + + + + | [facility] - | [address] | [place], [place] | [phone] | | [place] | | | | + + + + + URINALYSIS AND MICROSCOPIC (05/23/2020 7:28 AM PDT) + + + + + + | Component | Value | Ref Range | Performed | Pathologist | | | | | At | Signature | + + + + + + | URINE | CLEAN CATCH | | [facility] | | | COLLECTION | | | LAB - | | | | | | [place] | | + + + + + + | COLOR(UR) | STRAW | | [facility] | | | | | | LAB - | | | | | | [place] | | + + + + + + | APPEARANCE | CLEAR | | [facility] | | | | | | LAB - | | | | | | [place] | | + + + + + + | SPECIFIC | 1.008 | 1.005 - 1.030 | [facility] | | | GRAVITY | | | LAB - | | | | | | [place] | | + + + + + + | PH(UR) | 7 | 5 - 9 | [facility] | | | | | | LAB - | | | | | | [place] | | + + + + + + | PROTEIN, UA | NEGATIVE | negative mg/dL | [facility] | | | | | | LAB - | | | | | | [place] | | + + + + + + | GLUCOSE, UA | SMALL | normal | [facility] | | | | | | LAB - | | | | | | [place] | | + + + + + + | KETONES, UA | NEGATIVE | negative | [facility] | | | | | | LAB - | | | | | | [place] | | + + + + + + | BILIRUBIN | NEGATIVE | negative | [facility] | | | | | | LAB - | | | | | | [place] | | + + + + + + | BLOOD | MODERATE | negative | [facility] | | | | | | LAB - | | | | | | [place] | | + + + + + + | NITRITES | NEGATIVE | negative | [facility] | | | | | | LAB - | | | | | | [place] | | + + + + + + | UROBILINOGE | NORMAL | normal mg/dL | [facility] | | | N | | | LAB - | | | | | | [place] | | + + + + + + | LEUKOCYTE | NEGATIVE | negative | [facility] | | | ESTERASE | | | LAB - | | | | | | [place] | | + + + + + + | CASTS | NEGATIVE | 0-1+ Hyaline | [facility] | | | | | /lpf | LAB - | | | | | | [place] | | + + + + + + | LEUKOCYTES | 10 (H) | 0 - 4 /hpf | [facility] | | | (UA DIP) | | | LAB - | | | | | | [place] | | + + + + + + | RED CELLS | 10 (H) | 0 - 4 /hpf | [facility] | | | | | | LAB - | | | | | | [place] | | + + + + + + | EPITHELIAL | SQUAMOUS 1+ | 0-1+ Squamous | [facility] | | | CELLS | | /lpf | LAB - | | | | | | [place] | | + + + + + + | CRYSTALS | NEGATIVE | 0-1+ /hpf | [facility] | | | | | | LAB - | | | | | | [place] | | + + + + + + | BACTERIA | NEGATIVE | negative /hpf | [facility] | | | | | | [facility] - | | | | | | [place] | | + + + + + + + + | Specimen | + + | | + + + + + | Narrative | Performed At | + + + | Testing Performed at: [facility] CLIA: [id number] - [address] | [facility] | | [place] [address] | - [place] | + + + + + + + + | Performing | Address | City/State/Zipcode | Phone Number | | Organization | | | | + + + + + | [facility] - | [address] | [place] | [phone] | | [place] | | | | + + + + + CULTURE, URINE BACTI (05/23/2020 7:28 AM PDT) + + + + + + | Component | Value | Ref Range | Performed | Pathologist | | | | | At | Signature | + + + + + + | CULTURE | SEE NOTEComment: URINE | | [facility] | | | RESULT | CULTURE | | LAB - | | | | 05/25/2020 01:42 PM | | [place] | | | | No growth after 24 | | | | | | hours incubation. | | | | | | Testing | | | | | | Performed at: IP | | | | | | [place] [address]; [place], | | | | | | [place] [address] Patient | | | | | | | [...] + + | [facility] - | [address] | [place], [place] | [phone] | | [place] | | | | + + + + + RENAL FUNCTION SET (NA,K,CL,CO2,BUN,CREAT,GLUC,CA,PHOS,ALB ) (05/09/2020 8:15 AM PDT)Only the most recent of 2 results within the time period is included. + + + + + + | Component | Value | Ref Range | Performed | Pathologist | | | | | At | Signature | + + + + + + | SODIUM, | 140 | 132 - 143 meq/L | [facility] | | | PLASMA | | | LAB - | | | (LAB) | | | [place] | | + + + + + + | POTASSIUM, | 4.5 | 3.6 - 5.1 meq/L | [facility] | | | PLASMA | | | LAB - | | | (LAB) | | | [place] | | + + + + + + | CHLORIDE, | 102 | 95 - 112 meq/L | [facility] | | | PLASMA | | | LAB - | | | (LAB) | | | [place] | | + + + + + + | CO2 | 30 | 19 - 31 meq/L | [facility] | | | | | | LAB - | | | | | | [place] | | + + + + + + | ANION GAP | 12.5 | 7 - 21 | [facility] | | | | | | LAB - | | | | | | [place] | | + + + + + + | GLUCOSE, | 393 (H) | 70 - 100 mg/dL | [facility] | | | PLASMA | | | LAB - | | | (LAB) | | | [place] | | + + + + + + | BUN, PLASMA | 47 (H) | 6 - 23 mg/dL | [facility] | | | (LAB) | | | LAB - | | | | | | [place] | | + + + + + + | CREATININE | 2.26 (H) | 0.70 - 1.33 | [facility] | | | PLASMA | | mg/dL | LAB - | | | (LAB) | | | [place] | | + + + + + + | ESTIMATED | 30 (L) | ml/min | [facility] | | | GFR | | | LAB - | | | | | | [place] | | + + + + + + | BUN/CREATIN | 20.8 | 6.0 - 28.6 | [facility] | | | INE RATIO | | | LAB - | | | | | | [place] | | + + + + + + | ALBUMIN | 4.0 | 3.5 - 5.0 g/dl | [facility] | | | | | | LAB - | | | | | | [place] | | + + + + + + | CALCIUM | 9.2 | 8.5 - 10.3 | [facility] | | | | | mg/dL | LAB - | | | | | | [place] | | + + + + + + | PHOSPHORUS, | 3.8Comment: | 2.5 - 5.0 mg/dL | [facility] | | | PLASMA | ESTIMATED GFR | | LAB - | | | (LAB) | Reference Range: | | [place] | | | | GFR = Less than 60: | | | | | | Chronic Kidney Disease, | | | | | | if found over a 3 month | | | | | | period. GFR = Less | | | | | | than 15: Kidney Failure. | | | | | | For | | | | | | Americans, multiply the | | | | | | calculated GFR by 1.21. | | | | | | GFR calculation is | | | | | | not valid for patients | | | | | | under age 18 years. | | | | | | For patients over age | | | | | | 70 please interpret | | | | | | results with caution as | | | | | | results have not | | | | | | been validated for this | | | | | | calculation method | | | | | | Please Note: | | | | | | Calcium reference range | | | | | | change as of 05/08/2018. | | | | | | | | | | + + + + + + + + | Specimen | + + | | + + + + + | Narrative | Performed At | + + + | Testing Performed at: [facility] CLIA: [id number] - [address] | [facility] | | [place] [address] | - [place] | + + + + + + + + | Performing | Address | City/State/Zipcode | Phone Number | | Organization | | | | + + + + + | [facility] - | [address] | [place] | [phone] | | [place] | | | | + + + + + PROTEIN/CREATININE RATIO, URINE (05/09/2020) + + + + + + | Component | Value | Ref Range | Performed | Pathologist | | | | | At | Signature | + + + + + + | PROTEIN, | 11 | 0.0 - 50.0 | [facility] | | | URINE | | mg/interval | LAB - | | | | | | [place] | | + + + + + + | CREATININE, | 51.60 | g/col. time | [facility] | | | URINE | | | LAB - | | | | | | [place] | | + + + + + + | PROTEIN/CRE | 213.2 (A) | 0 - 150 mg/mg | [facility] | | | ATININE | | | LAB - | | | RATIO | | | [place] | | + + + + + + + + | Specimen | + + | Urine - Urine | | (substance) | + + + + + + + | Performing | Address | City/State/Zipcode | Phone Number | | Organization | | | | + + + + + | [facility] - | [address] | [place] | [phone] | | [place] | | | | + + + + + from Last 3 Months Insurance + +--------+ +--------+-------+ +--------+ | Payer | Benefi | Subscriber | Effect | Phone | Address | Type | | | t Plan | ID | prudence | | | | | | / | | Dates | | | | | | Group | | | | | | + +--------+ +--------+-------+ +--------+ | ATTENDING AMBULATORY CARE MEDICAID | ATTENDING AMBULATORY CARE | [id number] | | | | Medica | | | [place]AST[place] | | 018-Pr | | | id | | | [place] | | esent | | | | + +--------+ +--------+-------+ +--------+ | CONTRACTS | TRANSP | [id number] | 08/30/ | | | PPO | | | [place]ANT | | 2019-P | | | | | | CONTRA | | resent | | | | | | CT | | | | | | | | OTHER | | | | | | + +--------+ +--------+-------+ +--------+ | SOLID [employer]P | SOLID | [id number] | 03/26/20 | | [address] | Agency | | | ORGAN | | [address] | | | | TXP | | sent | | [address] | | | | | | | | [place], | | | | | | | | [place] [address] | | + +--------+ +--------+-------+ +--------+ + +--------+ +--------+ + + | Guarantor Name | Accoun | Relation to | Date | Phone | Billing Address | | | t Type | Patient | of | | | | | | | | | | + +--------+ +--------+ + + | Steffen Duran | Person | Self | [birth year] | [address] | | | al/Fam | | 1964 | [id number] | [place] [address] | | | moi | | | 7 (Home) | | + +--------+ +--------+ + + | Steffen Duran | Case | Self | [birth year] | | [address] | | | Rate | | 1965 | [id number] | [place] | | | | | | 7 (Home) | [phone] | + +--------+ +--------+ + + Advance Directives + + + + + | Code Status | Date | Date | Comments | | | Activated | Inactivated | | + + + + + | Full Code | 10/12/2019 | 10/27/2019 | | | | 2:48 PM | 8:59 PM | | + + + + + + + + +---+ | | | | | + + + +---+ | Full Code | 08/16/2019 | 08/29/2019 | | | | 8:24 AM | 11:17 PM | | + + + +---+ + + + +---+ | | | | | + + + +---+ | Full Code | 07/22/2019 | 08/16/2019 | | | | 5:04 PM | 8:10 AM | | + + + +---+ + + + +---+ | | | | | + + + +---+ | Full Code | 07/17/2019 | 07/22/2019 | | | | 6:52 PM | 12:50 PM | | + + + +---+ + + + +---+ | | | | | + + + +---+ | Full Code | 04/21/2019 | 04/25/2019 | | | | 7:54 PM | 1:03 AM | | + + + +---+
--- OUTSIDE RECORDS SUMMARY | ~2020-07-29 | XMS | Encounter Summary ---
Demographics + + + | Address | [address] | | | [place] [address] | + + + | Home Phone | | + + + | Preferred Language | Unknown | + + + | Marital Status | Single | + + + | Jainism Affiliation | NON | + + + | Race | White | + + + | Ethnic Group | Not or | + + + Author + + + | Author | [facility] | + + + | Organization | [facility] | + + + | Address | Unknown | + + + | Phone | Unavailable | + + + Support + + + + + | Name | Relationship | Address | Phone | + + + + + | Doreen Manley | ECON | [address] | | | | | [place] | | | | | [address] | | + + + + + Care Team Providers + +------+ + | Care Track Service Person Name | Role | Phone | + +------+ + | Sharon David MD | PCP | | + +------+ + Encounter Details +--------+ + + + + | Date | Type | Department | Care Team | Description | +--------+ + + + + | 02/08/ | Pharmacy | [facility] | | | | 2020 | Visit | [address] | | | | | | [address] | | | | | | [place] [address] | | | | | | [phone] | | | +--------+ + + + [...] Rd | | | | | | [place], [place] | | | | | | [address] | | | | | | [phone] | | | | | | | | +--------+ + + + + | 09/27/ | Telephone-S | Liver Transplant | Vimal Crowe MD | | | 2019 | cheduled | | [address] | | | | | | [address], | | | | | | [place] [address] | | | | | | [phone] | | | | | | | [...] Rd | | | | | | [place] | | | | | | [address] | | | | | | [phone] | | | | | | | | +--------+ + + + + documented as of this encounter Visit Diagnoses Not on filedocumented in this encounter"
--- OUTSIDE RECORDS SUMMARY | ~2020-07-29 | XMS | Encounter Summary ---
Demographics + + + | Address | [address] | | | [place] [address] | + + + | Home Phone | | + + + | Preferred Language | Unknown | + + + | Marital Status | Single | + + + | Zoroastrian Affiliation | NON | + + + | Race | White | + + + | Ethnic Group | Not or | + + + Author + + + | Author | [facility] | + + + | Organization | [facility] | + + + | Address | Unknown | + + + | Phone | Unavailable | + + + Support + + + + + | Name | Relationship | Address | Phone | + + + + + | Doreen Manley | ECON | [address] | | | | | [place] | | | | | [address] | | + + + + + Care Team Providers + +------+ + | Care Vice President Of Procurement Name | Role | Phone | + +------+ + | Sharon David MD | PCP | | + +------+ + Encounter Details +--------+ + + + + | Date | Type | Department | Care Team | Description | +--------+ + + + + | 06/02/ | Pharmacy | [facility] | | | | 2020 | Visit | [address] | | | [address] | [address] | | | | | | [place] [address] | | | | | | [phone] | | | +--------+ + + + [...] Rd | | | | | | [place], [place] | | | | | | [address] | | | | | | [phone] | | | | | | | | +--------+ + + + + | 09/27/ | Telephone-S | Liver Transplant | Vimal Crowe MD | | | 2019 | cheduled | | [address] | | | | | | [address], | | | | | | [place] [address] | | | | | | [phone] | | | | | | | [...] Rd | | | | | | [place] | | | | | | [address] | | | | | | [phone] | | | | | | | | +--------+ + + + + documented as of this encounter Visit Diagnoses Not on filedocumented in this encounter"
--- OUTSIDE RECORDS SUMMARY | ~2020-07-29 | XMS | Encounter Summary ---
Demographics + + + | Address | [address] | | | [place] [address] | + + + | Home Phone | | + + + | Preferred Language | Unknown | + + + | Marital Status | Single | + + + | Tenriism Affiliation | NON | + + + | Race | White | + + + | Ethnic Group | Not or | + + + Author + + + | Organization | Unknown | + + + | Address | Unknown | + + + | Phone | Unavailable | + + + Support + + + + + | Name | Relationship | Address | Phone | + + + + + | Doreen Manley | ECON | [address] | | | | | [place] | | | | | [address] | | + + + + + Care Team Providers + +------+ + | Care Weights And Measures Sealer Name | Role | Phone | + +------+ + | Sharon David MD | PCP | | + +------+ + Encounter Details +--------+--------+ + + + | Date | Type | Department | Care Team | Description | +--------+--------+ + + + | 11/02/ | Travel | | | | | 2020 | | | | | +--------+--------+ + + + [...] Rd | | | | | | [place], [place] | | | | | | [address] | | | | | | [phone] | | | | | | | | +--------+ + + + + | 09/27/ | Telephone-S | Liver Transplant | Vimal Crowe MD | | | 2019 | [place] | | [address] | | | | | | [address], | | | | | | [place] [address] | | | | | | [phone] | | | | | | | [...] [place] | | | | | | [address] | | | | | | [phone] | | | | | | | | +--------+ + + + + documented as of this encounter Visit Diagnoses Not on filedocumented in this encounter"
--- OUTSIDE RECORDS SUMMARY | ~2020-07-29 | XMS | Encounter Summary ---
Demographics + + + | Address | [address] | | | [place] [address] | + + + | Home Phone | | + + + | Preferred Language | Unknown | + + + | Marital Status | Single | + + + | Buddhist Affiliation | Unknown | + + + | Race | White | + + + | Ethnic Group | Not or | + + + Author + + + | Author | [facility] | | | and [place] | + + + | Organization | [facility] | | | and [place] [...] Team Providers + +------+ + | Care Circulation Librarian Name | Role | Phone | + +------+ + | Sharon David MD | PCP | | + +------+ + Reason for Visit +--------+ + | Reason | Comments | +--------+ + | Other | 30 day monitor | +--------+ + Service/Procedure (Routine) +--------+--------+ + + + + | Status | Reason | Specialty | Diagnoses / | Referred By | Referred To | | | | | Procedures | Contact | Contact | +--------+--------+ + + + + | Closed | | Cardiology | Diagnoses | Alsamara, | Roshan | | | | | | Merscarmen, MD | Cardiology | | | | | Supraventric | [address] [place] | | | | | ular | [address] | [address] | | | | | tachycardia | [address] | [address] | | | | | ([facility]) | [place] | [place] | | | | | Pulmonary | [address] | [address] | | | | | hypertension | Phone: | Phone: | | | | | , | [phone] | [phone] | | | | | unspecified | Fax: | Fax: | | | | | ([facility]) | [phone] | [phone] | | | | | Procedures | | | | | | | MT EXT | | | | | | | ECG,PT | | | | | | | DEMAND | | | | | | | EVENT, SYMPT | | | | | | | MEMORY | | | | | | | LOOP, RECORD | | | | | | | MT XTRNL | | | | | | | PT ACTIVTD | | | | | | | ECG DWNLD | | | | | | | W/R&I </30 | | | | | | | DAYS MT | | | | | | | XTRNL MOBILE | | | | | | | CV | | | | | | | TELEMETRY | | | | | | | W/I&REPORT | | | | | | | 30 DAYS 4 | | | | | | | WK | | | +--------+--------+ + + + + Encounter Details +--------+ + + + + | Date | Type | Department | Care Team | Description | +--------+ + + + + | 04/28/ | Procedure | [facility] | Chen Alan, | SVT | | 2020 | visit | [facility] | [address] | (supraventricular | | | | [address] | [place], [place] | tachycardia) (HCC); | | | | [place] [address] | [id number] | Pulmonary | | | | [place] | | hypertension | | | | [address] | | (moderate/severe); | | | | [phone] | | Stage 3 chronic | | | | | | kidney disease | | | | | | (HCC); Liver | | | | | | transplant status | | | | | | (HCC) | +--------+ + + + + Social [...] | | | + +---+---+---+ + + | Comments: pt reports "1 chew a day." | + + + + +---------+ + | Alcohol Use | Drinks/Week | oz/Week | Comments | + + +---------+ + | Not Currently | | | | + + +---------+ + + + + | Sex Assigned at | Date Recorded | | | | + + + | Not on file | | + + + documented as of this encounter Progress Notes Kate Serra CMA - 04/28/2020 3:00 PM PDT30 day cardiac event monitor placed on patie nt. EOB/Billing information discussed. Instructions given and understood.Electronically sign ed by Kate Serra CMA at 04/28/2020 3:22 PM PDTdocumented in this encounter Plan of Treatment +--------+---------+ + + + | Date | Type | Specialty | Care Team | Description | +--------+---------+ + + + | 12/22/ | Office | Cardiology | Shannan Almanza | | | 2020 | Visit | | [address] | | | | | | [address] | | | | | | [place] [address] | | | | | | [phone] | | | | | | | | +--------+---------+ + + + documented as of this encounter Visit Diagnoses + + | Diagnosis | + + | SVT (supraventricular tachycardia) (HCC) Other specified cardiac dysrhythmias | + + | Pulmonary hypertension (moderate/severe) Other chronic pulmonary heart diseases | + + | Stage 3 chronic kidney disease | + + | Liver transplant status (HCC) | + + documented in this encounter
--- OUTSIDE RECORDS SUMMARY | ~2020-07-29 | XMS | Encounter Summary ---
Demographics + + + | Address | [address] | | | [place] [address] | + + + | Home Phone | | + + + | Preferred Language | Unknown | + + + | Marital Status | Single | + + + | Jehovah'S Witness Affiliation | NON | + + + | Race | White | + + + | Ethnic Group | Not or | + + + Author + + + | Author | [facility] | + + + | Organization | [facility] | + + + | Address | Unknown | + + + | Phone | Unavailable | + + + Support + + + + + | Name | Relationship | Address | Phone | + + + + + | Doreen Manley | ECON | [address] | | | | | [place] | | | | | [address] | | + + + + + Care Team Providers + +------+ + | Care Human Resources Psychologist Name | Role | Phone | + +------+ + | Sharon David MD | PCP | | + +------+ + Encounter Details +--------+ + + + + | Date | Type | Department | Care Team | Description | +--------+ + + + + | 09/24/ | Pharmacy | [facility] | | | | 2018 | Visit | [facility] | | | | | | [address] | | | | | | [address] [place], [place] | | | | | | [address] | | | | | | [phone] | | | +--------+ + + + [...] Rd | | | | | | [place], [place] | | | | | | [address] | | | | | | [phone] | | | | | | | | +--------+ + + + + | 09/27/ | Telephone-S | Liver Transplant | Vimal Crowe MD | | | 2019 | cheduled | | [address] | | | | | | [facility] [place], | | | | | | [place] [address] | | | | | | [phone] | | | | | | | [...] [address] | | | | | | [place], [place] | | | | | | [address] | | | | | | [phone] | | | | | | | | +--------+ + + + + documented as of this encounter Visit Diagnoses Not on filedocumented in this encounter"
--- OUTSIDE RECORDS SUMMARY | ~2020-07-29 | XMS | Encounter Summary ---
Demographics + + + | Address | [address] | | | [place] [address] | + + + | Home Phone | | + + + | Preferred Language | Unknown | + + + | Marital Status | Single | + + + | Rastafari Affiliation | NON | + + + [...] | | | | | [place] | | | | | [address] | | + + + + + Care Team Providers + +------+ + | Care Civil Celebrant Name | Role | Phone | + +------+ + | Sharon David MD | PCP | | + +------+ + Encounter Details +--------+ + + + + | Date | Type | Department | Care Team | Description | +--------+ + + + + | 04/21/ | Documentati | Liver Transplant | Jamila Ayala, | | | 2019 | on | at [facility] [address] | PharmD [address] | | | | | [address] | [address] | | | | | Physician's | [place], [place] | | | | | [place], 2nd floor | [address] | | | | | [place], [place] | | | | | | [address] | | | | | | [phone] | | | +--------+ + + + [...] this encounter Miscellaneous Notes Telephone Encounter - Jamila Ayala, PharmElizabeth - 04/21/2019 10:58 AM PDTFormatting of this n ote might be different from the original. Pharmacy Services: Pre-Transplant Medication Reconciliation and Evaluation Steffen Duran is a 54 year old male with a history of alcoholic cirrhosis, who is be ing evaluated for liver transplantation. The patient s most recent medication information was obtained from patient/family and Epic chart. VITALS: There were no vitals taken for this visit. Wt Readings from Last 1 Encounters: 04/21/19 84.4 kg (186 lb) Ht Readings from Last 1 Encounters: 04/21/19 71" Last 1 Encounter BMI Readings: Date BMI 04/21/2019 25.94 kg/m2 Active Problems Patient Active Problem List Diagnosis Date Noted Alcoholic cirrhosis of liver with ascites (HCC) 02/27/2019 Chronic kidney disease 02/27/2019 Hepatorenal syndrome (HCC) 02/27/2019 Abnormal echocardiogram 02/27/2019 Pharmacy Preferences: [facility] [id number] [place] [address] Hours: 9am-7pm Mon-fri / 9am-6pm Sat / Closed Sun E-Prescribing: Yes E-Prescribing Control Substances: Yes [facility] [address] [place] [address] Hours: 9am-7pm Mon-fri / 9am-6pm Sat / Closed Sun E-Prescribing: Yes E-Prescribing Control Substances: Yes Allergies Allergen Reactions Doxycycline Hives and Rash Updated Outpatient Medications: Current Medication List Name Sig FUROSEMIDE 40 MG TABLET Take 1 tablet by mouth two times daily. LACTULOSE 10 GRAM/15 ML ORAL SOLUTION Take 15 mL by mouth two times daily. SPIRONOLACTONE 100 MG TABLET Take 100 mg by mouth once daily. LABORATORY VALUES Lab Results Component Value Date WBC 11.08 (H) 04/21/2019 RBC 2.32 (L) 04/21/2019 HCT 25.0 (L) 04/21/2019 HB 8.9 (L) 04/21/2019 MCV 107.8 (H) 04/21/2019 MCH 30.3 03/20/1999 MCHC 35.6 04/21/2019 PLT 77 (L) 04/21/2019 NEUTROPERC 82.0 (H) 04/21/2019 LYMPHPERC 8.3 (L) 04/21/2019 MONOPERC 7.5 04/21/2019 EOSPERC 1.1 04/21/2019 BASOPERC 0.5 04/21/2019 GLU 133 (H) 04/21/2019 BUN 51 (H) 04/21/2019 CR 1.72 (H) 04/21/2019 TP 8.2 04/21/2019 ALB 3.3 (L) 04/21/2019 CA 9.7 04/21/2019 TBILI 15.5 (H) 04/21/2019 AP 211 (H) 04/21/2019 AST 89 (H) 04/21/2019 NA 128 (L) 04/21/2019 K 4.6 04/21/2019 CL 96 (L) 04/21/2019 BICARB 26 04/21/2019 ALT 56 04/21/2019 Chemistry Lab Results Lab Test Name Results Date/Time GLU 133 04/21/19 GLU 179 03/11/19 BUN 51 04/21/19 BUN 57 03/11/19 CR 1.72 04/21/19 CR 1.61 04/06/19 CR 1.5 11/19/18 PO4 5.1 11/19/18 CA 9.7 04/21/19 TBILI 15.5 04/21/19 TBILI 12.6 04/06/19 DIRBILI 4.0 02/12/19 AST 89 04/21/19 AST 74 6/17/19 ALT 56 04/21/19 ALT 40 04/06/19 K 4.6 04/21/19 K 4.9 03/11/19 ALB 3.3 04/21/19 ALB 3.0 04/06/19 CBC Lab Results Lab Test Name Results Date/Time WBC 11.08 04/21/19 WBC 7.4 03/11/19 HCT 25.0 04/21/19 HCT 19.6 03/11/19 PLT 77 04/21/19 PLT 65 03/11/19 Functional Status Cognitive impairment: No Specify [limitations to cognitive capacity, memory, etc,]: none Physical disabilities-No Medical comorbities include Current drug use? No Prior or current use of Etoh? Yes - quit in 2017 risk of recidivism? No Active infection? No Increased operative risk? No Current smoker/chewer? Yes - chews tabacco Hx of heart disease? No Hx of malignancy? No Hx of stroke? No Hx of renal impairment? No HX of DM No Strong support network: Yes Medication adherence issues? No Suitable for tx? Yes Assessment/Recommendations: 1. Medication review was completed. I discussed the need for life long immunosuppression an d importance of adherence to IMX protocol. I explained the need of prophylaxis and increased risk of infection and cancers, including skin, PTLD and other malignancies. I also discusse d the potential side effects including renal toxicity, HTN, DM, bone loss, and obesity. At t his time, The recipient appears to be a suitable candidate for transplantation relative to ruben light review. PLAN: We will continue the evaluation and discuss in the Transplant Selection Conference. A total of 30 minutes were spent reviewing the patient's medications for pre-transplant job davis. For any further questions regarding this information contact pharmacy, pager #[phone] Thank you, Jamila Ayala PharmD, [facility] Pager [phone] docum ented in this encounter Plan of Treatment +--------+ + + + + | Date | Type | Specialty | Care Team | Description | +--------+ + + + + | 08/08/ | Telephone-S | Nephrology | Angélica Chao, | | | 2019 | cheduled | | [address] | | | | | | [address] | | | | | | [place], [place] | | | | | | [address] | | | | | | [phone] | | | | | | | | +--------+ + + + + | 09/27/ | Telephone-S | Liver Transplant | Vimal Crowe MD | | | 2019 | cheduled | | [address] | | | | | | [address] | | | | | | [place] [address] | | | | | | [phone] | | | | | | | | +--------+ + + + + | 10/03/ | Appointment | Cardiology | | | | 2019 | | | | | +--------+ + + + + | 10/03/ | Office | Cardiology | Cyril Samuel | | | 2020 | Visit | | MD Patricia [address] [facility] | | | | | | [address] | | | | | | [place] | | | | | | [address] | | | | | | [phone] | | | | | | | | +--------+ + + + + documented as of this encounter Visit Diagnoses Not on filedocumented in this encounter
--- OUTSIDE RECORDS SUMMARY | ~2020-07-29 | XMS | Encounter Summary ---
Demographics + + + | Address | [address] | | | [place] [address] | + + + | Home Phone | | + + + | Preferred Language | Unknown | + + + | Marital Status | Single | + + + | Alevism Affiliation | NON | + + + | Race | White | + + + | Ethnic Group | Not or | + + + Author + + + | Author | [facility] | + + + | Organization | [facility] | + + + | Address | Unknown | + + + | Phone | Unavailable | + + + Support + + + + + | Name | Relationship | Address | Phone | + + + + + | Doreen Manley | ECON | [address] | | | | | [place] | | | | | [address] | | + + + + + Care Team Providers + +------+ + | Care Capacity Planning Analyst Name | Role | Phone | + +------+ + | Sharon David MD | PCP | | + +------+ + Reason for Visit + + + | Reason | Comments | + + + | Car Gen Record | Record Checklist | | Review | | + + + Encounter Details +--------+ + + + + | Date | Type | Department | Care Team | Description | +--------+ + + + + | 02/24/ | Abstract | Cardiology General | Unknown . | Car Gen Record | | 2019 | | at [facility] [address] | | Review (Record | | | | [facility] | | Checklist) | | | | [facility] and Healing, | | | | | | Building | | | | | | Floor [place], [place] | | | | | | [address] | | | | | | [phone] | | | +--------+ + + + [...] documented as of this encounter Progress Notes Emily Coley - 02/24/2019 12:57 PM PDT General Cardiology New Patient Record Check List Procedure Where/Date Date requested Report received? Y/N, Where? Imaging received? CD/ IMPAX/Not Available Comments Referring Provider notes VIMAL CROWE [[id number]] N/A Referral Last EKG (REPORT ONLY) Note: Tracings needed if being seen for abnormal ECG n N/A Last Echo images and report [facility] 06/2018 03/03/19 Care EW Impax Last Stress Test images and report n Last Cardiac Catheterization images and report n Last Holter or Event monitor report only n N/A Labs (BMP, Lipids, TSH, Hemoglobin A1C in last 6 months) [facility] 01/2019 Epic N/A Last Device Check (schedule device check if due) n N/A Last Cardiac MRI report and images if available n Cardiac CTA report and images if available n Patient Preferred Lab [facility] N/A N/A N/A Additional Comments: docume nted in this encounter Plan of Treatment +--------+ + + + + | Date | Type | Specialty | Care Team | Description | +--------+ + + + + | 08/08/ | Telephone-S | Nephrology | Angélica Chao, | | | 2019 | cheduled | | [address] | | | | | | [address] | | | | | | [place], [place] | | | | | | [address] | | | | | | [phone] | | | | | | | | +--------+ + + + + | 09/27/ | Telephone-S | Liver Transplant | Vimal Crowe MD | | | 2019 | cheduled | | [address] | | | | | | [facility] [address] [place], | | | | | | [place] [address] | | | | | | [phone] | | | | | | | [...] [place] | | | | | | [address] | | | | | | [phone] | | | | | | | | +--------+ + + + + documented as of this encounter Visit Diagnoses Not on filedocumented in this encounter"
--- OUTSIDE RECORDS SUMMARY | ~2020-07-29 | XMS | Encounter Summary ---
Demographics + + + | Address | [address] | | | [place] [address] | + + + | Home Phone | | + + + | Preferred Language | Unknown | + + + | Marital Status | Single | + + + | Episcopalian Affiliation | NON | + + + | Race | White | + + + | Ethnic Group | Not or | + + + Author + + + | Author | [facility] | + + + | Organization | [facility] | + + + | Address | Unknown | + + + | Phone | Unavailable | + + + Support + + + + + | Name | Relationship | Address | Phone | + + + + + | Doreen Manley | ECON | [address] | | | | | [place] | | | | | [address] | | + + + + + Care Team Providers + +------+ + | Care Accounting Consultant Name | Role | Phone | + +------+ + | Sharon David MD | PCP | | + +------+ + Reason for Visit + + + | Reason | Comments | + + + | Refill Request | | + + + Encounter Details +--------+--------+ + + + | Date | Type | Department | Care Team | Description | +--------+--------+ + + + | 04/20/ | Refill | Clinical | Una Anthony MD | Refill Request | | 2020 | | Transplant Services | [address] | | | | | [address] | [place], | | | | | [place], | [place] [address] | | | | | [place] [address] | [phone] | | | | | [phone] | | | +--------+--------+ + + + [...] | 2019 | cheduled | | [address] | | | | | | [address] | | | | | | [place], [place] | | | | | | [address] | | | | | | [phone] | | | | | | | | +--------+ + + + + | 09/27/ | Telephone-S | Liver Transplant | Vimal Crowe MD | | | 2019 | cheduled | | [address] | | | | | | [address], | | | | | | [place] [address] | | | | | | [phone] | | | | | | | [...] [address] | | | | | | [place] | | | | | | [address] | | | | | | [phone] | | | | | | | | +--------+ + + + + documented as of this encounter Visit Diagnoses Not on filedocumented in this encounter"
--- OUTSIDE RECORDS SUMMARY | ~2020-07-29 | XMS | Encounter Summary ---
Demographics + + + | Address | [address] | | | [place] [address] | + + + | Home Phone | | + + + | Preferred Language | Unknown | + + + | Marital Status | Single | + + + | Adventism Affiliation | NON | + + + [...] [place] | | | | | [address] | | + + + + + Care Team Providers + +------+ + | Care Oil Treater Name | Role | Phone | + +------+ + | Sharon David MD | PCP | | + +------+ + Encounter Details +--------+--------+ + + + | Date | Type | Department | Care Team | Description | +--------+--------+ + + + | 10/29/ | Travel | | | | | [...] [address] | | | | | | [place], [place] | | | | | | [address] | | | | | | [phone] | | | | | | | | +--------+ + + + + | 09/27/ | Telephone-S | Liver Transplant | Vimal Crwoe MD | | | 2019 | [place] | | [address] | | | | | | [address], | | | | | | [place] [address] | | | | | | [phone] | | | | | | | [...] [place] | | | | | | [address] | | | | | | [phone] | | | | | | | | +--------+ + + + + documented as of this encounter Visit Diagnoses Not on filedocumented in this encounter"
--- OUTSIDE RECORDS SUMMARY | ~2020-07-29 | XMS | Encounter Summary ---
Demographics + + + | Address | [address] | | | [place] [address] | + + + | Home Phone | | + + + | Preferred Language | Unknown | + + + | Marital Status | Single | + + + | Pentecostalism Affiliation | NON | + + + | Race | White | + + + | Ethnic Group | Not or | + + + Author + + + | Author | [facility] | + + + | Organization | [facility] | + + + | Address | Unknown | + + + | Phone | Unavailable | + + + Support + + + + + | Name | Relationship | Address | Phone | + + + + + | Doreen Manley | ECON | [address] | | | | | [place] | | | | | [address] | | + + + + + Care Team Providers + +------+ + | Care Inspector Eyeglass Frames Name | Role | Phone | + +------+ + | Sharon David MD | PCP | | + +------+ + Encounter Details +--------+ + + + + | Date | Type | Department | Care Team | Description | +--------+ + + + + | 08/29/ | Pharmacy | [facility] | | | | 2019 | Visit | Outpatient Pharmacy | | | | | | [address] | | | | | | [place] | | | | | | [address] | | | | | | [phone] | | | +--------+ + + + [...] Rd | | | | | | [place], [place] | | | | | | [address] | | | | | | [phone] | | | | | | | | +--------+ + + + + | 09/27/ | Telephone-S | Liver Transplant | Vimal Crowe MD | | | 2019 | cheduled | | [address] | | | | | | [facility] [place], | | | | | | [place] [address] | | | | | | [phone] | | | | | | | [...] [address] | | | | | | [place], [place] | | | | | | [address] | | | | | | [phone] | | | | | | | | +--------+ + + + + documented as of this encounter Visit Diagnoses Not on filedocumented in this encounter"
--- OUTSIDE RECORDS SUMMARY | ~2020-07-29 | XMS | Encounter Summary ---
Demographics + + + | Address | [address] | | | [place] [address] | + + + | Home Phone | | + + + | Preferred Language | Unknown | + + + | Marital Status | Single | + + + | Faith Affiliation | NON | + + + | Race | White | + + + | Ethnic Group | Not or | + + + Author + + + | Author | [facility] | + + + | Organization | [facility] | + + + | Address | Unknown | + + + | Phone | Unavailable | + + + Support + + + + + | Name | Relationship | Address | Phone | + + + + + | Doreen Manley | ECON | [address] | | | | | [place] | | | | | [address] | | + + + + + Care Team Providers + +------+ + | Care Center Customer Service Associate Name | Role | Phone | + +------+ + | Sharon David MD | PCP | | + +------+ + Encounter Details +--------+ + + + + | Date | Type | Department | Care Team | Description | +--------+ + + + + | 07/25/ | MyChart | Liver Transplant | Vimal Crowe MD | RE: Steffen Duran | | 2019 | Encounter | at [facility] [address] | | | | | [address] | [address] [place], | | | | | Physician's | [place] [address] | | | | | [place] [place] [address] | [phone] | | | | | [place], [place] | | | | | | [address] | | | | | | [phone] | | | +--------+ + + + [...] [address] | | | | | | [place], [place] | | | | | | [address] | | | | | | [phone] | | | | | | | | +--------+ + + + + | 09/27/ | Telephone-S | Liver Transplant | Vimal Crowe MD | | | 2019 | cheduled | | [address] | | | | | | [address], | | | | | | [place] [address] | | | | | | [phone] | | | | | | | [...] Rd | | | | | | [place], [place] | | | | | | [address] | | | | | | [phone] | | | | | | | | +--------+ + + + + documented as of this encounter Visit Diagnoses Not on filedocumented in this encounter"
--- OUTSIDE RECORDS SUMMARY | ~2020-07-29 | XMS | Encounter Summary ---
Demographics + + + | Address | [address] | | | [place] [address] | + + + | Home Phone | | + + + | Preferred Language | Unknown | + + + | Marital Status | Single | + + + | Religion Affiliation | NON | + + + | Race | White | + + + | Ethnic Group | Not or | + + + Author + + + | Author | [facility] | + + + | Organization | [facility] | + + + | [...] [place] | | | | | [address] | | + + + + + Care Team Providers + +------+ + | Care Real Estate Valuer Name | Role | Phone | + +------+ + | Sharon David MD | PCP | | + +------+ + Reason for Visit + + + | Reason | Comments | + + + | New patient | | | consultation | | + + + AUTH/CERT +--------+--------+ + + + + | Status | Reason | Specialty | Diagnoses / | Referred By | Referred To | | | | | Procedures | Contact | Contact | +--------+--------+ + + + + | | | | | | | +--------+--------+ + + + + Encounter Details +--------+---------+ + + + | Date | Type | Department | Care Team | Description | +--------+---------+ + + + | 04/21/ | Office | Liver Transplant | 1, [address] | Alcoholic cirrhosis | | 2019 | Visit | at [facility] [address] | [address] [facility] | of liver with | | | | [address] | [address] [place], [place] | ascites (HCC) | | | | Physician's | [id number] | (Primary Dx) | | | | Pavilion, 2nd floor | | | | | | [place], [place] | | | | | | [address] | | | | | | [phone] | | | +--------+---------+ + + + Social History + +-------+ [...] + + documented as of this encounter Last Filed Vital Signs + + + + + | Vital Sign | Reading | Time Taken | Comments | + + + + + | Blood Pressure | 88/53 | 04/21/2019 9:54 AM | | | | | PDT | | + + + + + | Pulse | 88 | 04/21/2019 9:54 AM | | | | | PDT | | + + + + + | Temperature | 36.8 C (98.3 F) | 04/21/2019 9:54 AM | | | | | PDT | | + + + + + | Respiratory Rate | 18 | 04/21/2019 9:54 AM | | | | | PDT | | + + + + + | Oxygen Saturation | 100% | 04/21/2019 9:54 AM | | | | | PDT | | + + + + + | Inhaled Oxygen | - | - | | | Concentration | | | | + + + + + | Weight | 84.4 kg (186 lb) | 04/21/2019 9:54 AM | | | | | PDT | | + + + + + | Height | 180.3 cm (5' 11") | 04/21/2019 9:54 AM | | | | | PDT | | + + + + + | Body Mass Index | 25.94 | 04/21/2019 9:54 AM | | | | | PDT | | + + + + + documented in this encounter Progress Notes Pattie Ignacio PA-C - 04/21/2019 9:40 AM PDTFormatting of this note might be different f rom the original. Consult History and Physical - Abdominal Transplant and Hepatobiliary Surgery Author: Pattie Ignacio PA-C Attending Surgeon: Farooq Weeks MD Reason for Consult: Evaluation for listing History of Present Illness: Steffen Duran is a year old man with end stage liver disease secondary to alcohol he patitis in the setting of alcohol cirrhosis. Current MELD is 35. Manifestations of hisliver disease include ascites/LE edema, and hepatorenal syndrome. He has no evidence of HCC, SBP, hepatic encephalopathy, or esophageal varices. While in the hospital in 09/2018 he had an ec ho that showed pulmonary hypertension with an RVSP of 62. Repeat Echo in 02/2019 was normaliz ed with an RVSP of 32. He has been sober since 06/2018 but continues to chew tobacco, althoug h he is committed to stopping. Past Medical History: 1. Alcohol cirrhosis 2. Acute alcohol hepatitis 3. Ascites 4. Lower extremity edema 5. Hepatorenal syndrome 6. CKD stage III 7. Hypebilirubinemia Past Surgical History: 1. Repair of right leg fracture No abdominal surgeries Social History: Living situation - Lives in [place], [place]. 4 adult children. Mom and sister will be primar y support and live in [place] but willing to come up to [place]. 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 EtOH - 8-10 beers on the weekend quit in and is doing relapse prevention program. IVDU - None Family History: No family history of liver disease Allergies Allergen Reactions Doxycycline Hives and Rash Current Medication List Name Sig FUROSEMIDE 40 MG TABLET Take 1 tablet by mouth two times daily. LACTULOSE 10 GRAM/15 ML ORAL SOLUTION Take 15 mL by mouth two times daily. SPIRONOLACTONE 100 MG TABLET Take 100 mg by mouth once daily. Review of Systems: Constitutional: No fevers, night sweats, or weight change. +fatigue Eyes: No double vision, eye pain, discharge, or blurred vision. Ears, Nose, and Throat: No hearing loss, earache, nasal congestion, difficulty swallowing, hoarseness, or sore throat. Musculoskeletal: No joint pain, swelling, or stiffness. Respiratory: No shortness of breath, sputum production, or wheezing. Cardiovascular: No chest pain, palpitations, or edema. Gastrointestinal: No nausea, vomiting, diarrhea, or constipation. Genitourinary: No blood in urine, painful urination, incontinence, urinary urgency or hesi tancy, or genital sores. Neurologic: No unusual headaches, speech changes, poor balance, numbness, weakness, memory loss, or change in coordination. +intermittent confusion. Skin: No rash or open wounds. +jaundice Exam: Vitals: 04/21/19 0954 BP: (!) 88/53 BP Location: Left upper arm Patient Position: Sitting Pulse: 88 Resp: 18 Temp: 36.8 C (98.3 F) TempSrc: Oral SpO2: 100% Weight: 84.4 kg (186 lb) Height: 1.803 m (5' 11") PainSc: 0 - Zero Const - awake, comfortable. Neuro - CN II-XII intact. Alert and oriented to person, place, time, and situation. ENT - EOMI, PERRL, +scleral icterus; trachea midline, no cervical lymphadenopathy. Cardio - RRR, no M/R/G. Palpable radial, brachial, femoral, popliteal, DP and PT pulses bi laterally. Pulm - CTA B. GI - soft, NT, ND. Skin - WWP, moderate edema, +jaundice MS - no joint swelling, no CVA tenderness, back straight. Labs: Chemistries: Last 72 Hours (or 3 results) - Refreshable Recent Labs 04/21/19 0839 NA 128* K 4.6 CL 96* BICARB 26 BUN 51* CR 1.72* GLU 133* CA 9.7 Liver Tests: Last 72 hours (or 3 results) Recent Labs 04/21/19 0839 AST 89* ALT 56 TBILI 15.5* AP 211* ALB 3.3* TP 8.2 Lab Results Component Value Date INRPT 2.66 (H) 04/21/2019 CBC with diff last 72 hours (or 3 results) - Refreshable Recent Labs 04/21/19 0839 WBC 11.08* HB 8.9* HCT 25.0* PLT 77* NEUTROPERC 82.0* LYMPHPERC 8.3* MONOPERC 7.5 BASOPERC 0.5 EOSPERC 1.1 No results found for: AFPTUMORMKR No results found for: CEA No results found for: CA199 Imaging: Last CT No results found for: CTABDPELVIS Last MRI: 11/19/2018 IMPRESSION: 1. Cirrhosis with portal hypertension. No focal lesion. 2. Diffuse hepatic signal loss on in-phase imaging with more prominent focal signal loss ab out the hepatic veins, and similar signal loss involving the pancreatic body/tail. These fin dings reflect abnormal iron deposition, either due to underlying cirrhosis or primary hemach romatosis. 3. Cholelithiasis without associated inflammatory changes. No biliary ductal dilatation. TTE 2018 Result Impression 1. Overall left ventricular systolic function is normal with, an EF between 60 - 65 %. 2. Pseudonormal LV diastolic filling pattern, consistent with elevated LA pressure and mode rate dysfunction (Grade II). 3. Moderate tricuspid regurgitation present. 4. There is moderate to severe pulmonary hypertension. Repeat TTE 03/19/2019 AOV VMN (AORTIC VALVE) 12.1 BIPLANE, EF 63 EJECTION FRACTION 60 to 65 LA DIMENSION 3.9 LVIDD 5.8 MV A VMAX 0.9 MV E? 0.1 MV E VMAX 0.8 MV E/E' (MITRAL VALVE) 7.1 MITRAL ANNULUS MEDIAL E/E" (TISSUE DOPPLER) 11.1 RVSP 32 RV TAPSE 2.8 RV TDI S? 21.0 TR VMAX (TRICUSPID VALVE) 2.6 EJECTION FRACTION RANGE MEAN VALUE % 62.5 Resulting Agency Final Impressions: 1. The left ventricular size is normal. 2. The LV function is normal. 3. Right ventricular size, thickness and function are normal. 4. The aortic valve is trileaflet and moderately calcified. 5. Mild aortic stenosis (See comments below). 6. There are no prior exams available for comparison. Assessment Mr Duran is a 54 year old man with end stage liver disease secondary to acute alcohol hepat itis in setting of alcohol cirrhosis. Current MELD is 35. Manifestations of liver disease in clude ascites, lower extremity edema, and hepatorenal syndrome. He appears to be a good surg ical candidate pending further review of 3d imaging. He needs to stop nicotine. Mr. Duran wa s discussed with Dr. Weeks, who is in agreement. I have explained the risks, benefits and options of transplantation as well as the survival statistics with and without transplantation. I discussed the MELD score and liver allocatio n system. I reviewed the data which has shown that pts with A MELD score < 15 have a highe r mortality with transplantation than with waiting on the list, whereas pts with a MELD scor e > = to 15 benefit from transplantation, in terms of mortality vs from waiting on the list. I also discussed the risks of the transplant operation, including infection, bleeding and . I also discussed the complications of transplantation including HAT, biliary strictu re and leak, PNF. I discussed the programatic protocol of clinic visits, lab tests and immu nosuppression regimens. I discussed the risks of immunosuppression, including infection and blood cell and skin malignancies. I discussed the toxicities of immunosuppressants includi ng diabetes, HTN, obesity, osteoporosis, renal insufficiency, and tremors, to name a few. I discussed the use of PHS increased risk donors, and the use of DCD livers. Recommendations: 1. Check all outstanding consultations and tests 2. Discuss the patient at our liver transplantation selection conference. Associated attestation - Desi, Rod Trivedi MD - 04/22/2019 12:41 PM PDTTransplan t/[facility] Surgery Staff Note I have seen and evaluated the patient and agree with the plan as outlined in the PA's note on 04/21. Excellent transplant candidate, needs to quit smokeless tobacco. I strongly emphas ized the importance of this with the patient and his family. I indicated that for those wit h MELD =30, 90 mortality approached 30%, underscoring the need to vigorously adhere to curre nt policy. No other contraindications to transplant. Coleman Alexandre. Professor Division of Abdominal Organ Transplantation and Hepatobiliary Surgery [facility], [place] documented in this encounter Plan of Treatment [...] [address] | | | | | | [place], [place] | | | | | | [address] | | | | | | [phone] | | | | | | | | +--------+ + + + + | 09/27/ | Telephone-S | Liver Transplant | Vimal Crowe MD | | | 2019 | [place] | | [address] | | | | | | [address], | | | | | | [place] [address] | | | | | | [phone] | | | | | | | [...] Rd | | | | | | [place], [place] | | | | | | [address] | | | | | | [phone] | | | | | | | | +--------+ + + + + documented as of this encounter Visit Diagnoses + + | Diagnosis | + + | Alcoholic cirrhosis of liver with ascites (HCC) - Primary Alcoholic cirrhosis of | | liver | + + documented in this encounter
--- OUTSIDE RECORDS SUMMARY | ~2020-07-29 | XMS | Encounter Summary ---
Demographics + + + | Address | [address] | | | [place] [address] | + + + | Home Phone | | + + + | Preferred Language | Unknown | + + + | Marital Status | Single | + + + | Jainism Affiliation | Unknown | + + + | Race | White | + + + | Ethnic Group | Not or | + + + Author + + + | Author | [facility] | | | and [place] | + + + | Organization | [facility] | | | and [place] | [...] Team Providers + +------+ + | Care Acid Correction Hand Name | Role | Phone | + +------+ + | Sharon David MD | PCP | | + +------+ + Reason for Visit + + + | Reason | Comments | + + + | New Patient | | + + + Evaluate & Treat (Routine) + +--------+ + + + + | Status | Reason | Specialty | Diagnoses / | Referred By | Referred To | | | | | Procedures | Contact | Contact | + +--------+ + + + + | Authorized | | Cardiology | Diagnoses | David, | [place], | | | | | | Sharon Tong MD | MD Sumit | | | | | Supraventric | [address] | [address] | | | | | ular | [address] | [place] | | | | | tachycardia | [place], | [place], [place] | | | | | ([facility]LY [facility]) | [place] [address] | [address] Phone: | | | | | Procedures | Phone: | [phone] | | | | | Consult | [phone] | Fax: | | | | | | Fax: | [phone] | | | | | | [phone] | | + +--------+ + + + + Encounter Details +--------+---------+ + + + | Date | Type | Department | Care Team | Description | +--------+---------+ + + + | 04/06/ | Office | [facility] | Sumit Escamilla, | SVT | | 2019 | Visit | CARDIOLOGY [place] | [address] | (supraventricular | | | | [address] | [place], [place] | tachycardia) (HCC) | | | | [address] | [address] | (Primary Dx); | | | | [place] | | Pulmonary | | | | [address] | | hypertension | | | | [phone] | | (moderate/severe); | | | | | | Stage 3 chronic | | | | | | kidney disease | | | | | | (HCC); Liver | | | | | | transplant status | | | | | | (HCC); Paroxysmal | | | | | | A-fib (HCC) | +--------+---------+ + + + Social History [...] + + + | Blood Pressure | 118/72 | 04/06/2020 1:17 PM | | | | | PDT | | + + + + + | Pulse | 62 | 04/06/2020 1:17 PM | | | | | PDT | | + + + + + | Temperature | - | - | | + + + + + | Respiratory Rate | - | - | | + + + + + | Oxygen Saturation | 98% | 04/06/2020 1:17 PM | | | | | PDT | | + + + + + | Inhaled Oxygen | - | - | | | Concentration | | | | + + + + + | Weight | 90.3 kg (199 lb) | 04/06/2020 1:17 PM | | | | | PDT | | + + + + + | Height | 180.3 cm (5' 11") | 04/06/2020 1:17 PM | | | | | PDT | | + + + + + | Body Mass Index | 27.75 | 04/06/2020 1:17 PM | | | | | PDT | | + + + + + documented in this encounter Progress Notes Sumit Escamilla MD - 04/06/2020 1:00 PM PDTFormatting of this note might be different f rom the original. Date of visit: 04/06/2020 Primary Care Physician: Sharon David MD CHIEF COMPLAINT: Chief Complaint Patient presents with New Patient HISTORY OF PRESENT ILLNESS: Steffen is 55 y.o. here for evaluation of supraventricular tachycardia. Complex past medical history status post liver transplantation secondary to liver cirrhosis , chronic kidney disease. Still follows up with hepatology at [facility]. Lately has been feeling more tired, symptoms started in October 2019, dyspnea on exertion, episodes of palpitations. Trace lower extremity edema, orthopnea, mild chest discomfort. L imited activity level overall. Denies any excessive coffee, stopped drinking 2 years ago. His liver transplant surgery was July 2019, was last seen by his bus boy in 2018, remembers at that time he was prescribed amiodarone because "abnormal rhythm" no ant icoagulation. Has not seen his bus boy back since then. Has been on metoprolol and amiodarone. Also has a blind teacher he sees in [facility], as well secondary to the COVID-19 pandemic he has been unable to make any appointment. Past medical history, SH, FH, and medications were reviewed in the chart. Medications: Outpatient Encounter Medications as of 04/06/2020 Medication Sig Dispense Refill amiodarone (PACERONE) 200 mg tablet Take 200 mg by mouth Daily. aspirin 325 mg tablet Take 325 mg by mouth Daily. calcium-vitamin D (OYSTER SHELL CALCIUM/D) 500 mg-200 units per tablet Take 1 tablet by mouth Daily. [DISCONTINUED] cephalexin (KEFLEX) 250 mg capsule Take 1 capsule by mouth 4 (four) time s daily. 56 capsule 0 fludrocortisone (FLORINEF) 0.1 mg tablet Take 0.1 mg by mouth Daily. glimepiride (AMARYL) 1 mg tablet Take 1 mg by mouth every morning (before breakfast). insulin glargine (LANTUS) 100 units/mL injection (vial) Inject 10 Units under the skin nightly. magnesium oxide 250 MG TABS Take 250 mg by mouth 2 times daily. metoprolol succinate (TOPROL-XL) 25 mg 24 hr tablet Take 25 mg by mouth Daily. mirtazapine (REMERON) 30 mg tablet Take 30 mg by mouth nightly. sodium zirconium cyclosilicate (LOKELMA) 10 g packet Take 10 g by mouth Twice a week. tacrolimus (PROGRAF) 1 mg capsule Take 3 mg by mouth 2 times daily. No facility-administered encounter medications on file as of 04/06/2020. Allergies Allergies Allergen Reactions Doxycycline Hives REVIEW OF SYSTEMS: Constitutional: Positive for fatigue. No fever, chills, and rigors. No report of weight ch hollie. HEENT: Negative for nosebleeds, ear discharge, nasal congestion or soar throat. Eyes: Negative for visual disturbance, redness, or secretion. Respiratory: Negative for cough, sputum production, hemoptysis, wheezing. Cardiovascular: As HPI. Gastrointestinal: Negative for nausea, vomiting, diarrhea, abdominal pain and blood in stoo l. Genitourinary: Negative for dysuria or hematuria. Musculoskeletal: Chronic arthritic especially right shoulder pain previous right shoulder d isplacement. Skin: Negative for rash. Neurological: Negative for dizziness. No numbness. No recent falls. No slurred speech. Hematological: No significant bruising. Psychiatric/Behavioral: No depression or anxiety. PHYSICAL EXAM Vital Signs: BP 118/72 | Pulse 62 | Ht 1.803 m (5' 11") | Wt 90.3 kg (199 lb) | SpO2 98% | BMI 27.7 5 kg/m GENERAL APPEARANCE: Alert, oriented, cooperative, no distress, appears stated age. HEENT: Extraocular movements were intact. No jaundice. Pupiles round and reactive. NECK: No JVD, lymphadenopathy. Carotid upstrokes normal. No carotid bruit heard. CARDIAC: Regular rhythm and rate. There is normal S1 and S2. No galop. No murmur. CHEST: Normal bilateral symmetrical chest excursion.ackles or wheezing. No evidence of dull ness. ABDOMEN: Soft.No tenderness or guarding. No palpable organs. Active bowel sounds. EXTREMITIES: No lower extremities edema, cyanosis or clubbing. Right shoulder discomfort a nd tenderness limited range of motion. NEURO: Alert and oriented times three with no focal deficit. Cranial nerves are grossly no rmal. SKIN: Warm and dry. No rash. Psych: Normal affect and mood. DATA 03/28/2020 WBC 5.3, hemoglobin 12.0, platelets 118. Sodium 141, potassium 4.4, chloride 102, bicarb 2 9, BUN 42, creatinine 2.21, GFR 31. AST 16, ALT 16, alk phos 81, magnesium 2.0. Lab Results Component Value Date/Time NA 136 07/24/2018 05:20 AM NA 135 07/23/2018 05:13 AM NA 138 07/22/2018 05:22 AM K 3.7 07/24/2018 05:20 AM K 3.9 07/23/2018 05:13 AM K 3.7 07/22/2018 05:22 AM CO2 26 07/24/2018 05:20 AM CO2 27 07/23/2018 05:13 AM CO2 25 07/22/2018 05:22 AM BUN 28 (H) 07/24/2018 05:20 AM BUN 25 07/23/2018 05:13 AM BUN 24 07/22/2018 05:22 AM CALCIUM 7.7 (L) 07/24/2018 05:20 AM CALCIUM 7.8 (L) 07/23/2018 05:13 AM CALCIUM 7.6 (L) 07/22/2018 05:22 AM MG 1.7 07/19/2018 05:33 AM MG 1.7 07/18/2018 06:44 AM Lab Results Component Value Date/Time WBC 5.79 08/05/2018 08:37 AM WBC 6.05 07/29/2018 01:48 PM WBC 5.41 07/24/2018 05:20 AM HGB 6.3 (LL) 08/05/2018 08:37 AM HGB 6.4 (LL) 07/29/2018 01:48 PM HGB 6.8 (LL) 07/24/2018 05:20 AM MCV 94.0 08/05/2018 08:37 AM MCV 93.6 07/29/2018 01:48 PM MCV 94.3 07/24/2018 05:20 AM LABPLAT 94 (L) 08/05/2018 08:37 AM LABPLAT 86 (L) 07/29/2018 01:48 PM LABPLAT 82 (L) 07/24/2018 05:20 AM Lab Results Component Value Date ALT 17 07/24/2018 ALT 15 07/23/2018 GLUF 126 (H) 07/24/2018 GLUF 110 (H) 07/23/2018 EC04/06/2020 Ordered and reviewed by myself showed normal sinus rhythm with right bundle branch block. Anterior T wave inversions Last Echo: 03/18/2020 Moderately dilated left ventricle, 6.5 cm. Global moderate impaired systolic function EF 3 5%. Mildly dilated RV with impaired systolic function. Moderate mitral regurgitation, severely dilated left atrium. Moderate tricuspid regurgitat ion and moderate pulmonary hypertension. 07/18/2019 Reported with normal left ventricular size, normal function. Mild pulmonary hypertension. 2018 Reported with normal left ventricular size and function EF 60 to 65% moderate tricuspid reg urgitation moderate to severe pulmonary hypertension. Last Stress test: 04/21/2019 Stress dobutamine echocardiogram reported with normal systolic function baseline. No ische lauri EKG changes during stress. Frequent premature atrial contractions and 2 sustained runs of supraventricular tachycardia at recovery. No evidence of wall motion normality was repor jeannette, normal LV function. Last Cath: Last US carotid: ASSESSMENT: Patient is 55 y.o. with 1. Cardiomyopathy, Rich heart classification class III, stage C. 2. States post liver transplant on tacrolimus. 3. Chronic kidney disease stage III. 4. Essential hypertension. 5. Supraventricular tachycardia, no further details available on amiodarone that was prescr ibed by [facility] and science [place] cardiology no anticoagulation. 6. Thrombocytopenia. 7. Moderate pulmonary hypertension. 8. Right bundle branch block. Plan: Complex past medical history and presentation. We will request prior cardiology notes. Available to review stress echo from July 2019 that showed normal heart function. Curre nt echocardiogram showed moderately impaired systolic function. Patient today is euvolemic. Medical management is limited due to advanced kidney disease, at this time will start patie nt on isosorbide dinitrate 20 mg 2-3 times a day as tolerated. Continue with metoprolol suc cinate 25 mg once a day. Cannot initiate angiotensin receptor inhibitors due to advanced kidney disease. 1 month event monitor is prescribed to further evaluate arrhythmia, given no prior records will continue amiodarone at previous recommended dose from [facility] 200 mg daily. We will continue to follow-up with the patient closely. Thank you Dr. David for allowing me the chance to participate in the care of this patient *This report has been prepared using a voice recognition system. The report was reviewed fo r accuracy, however, sound-alike word errors, addition and/or deletions may occur. If there is any question about this report please contact me. Sumit Escamilla MD, MPH P M PDTdocumented in this encounter Plan of Treatment +--------+---------+ + + + | Date | Type | Specialty | Care Team | Description | +--------+---------+ + + + | 12/22/ | Office | Cardiology | Shannan Almanza | | | 2020 | Visit | | [address] | | | | | | [address] | | | | | | [place] [address] | | | | | | [phone] | | | | | | | | +--------+---------+ + + + + +------+--------+ + + | Name | Type | Priori | Associated Diagnoses | Order Schedule | | | | ty | | | + +------+--------+ + + | Event monitor - 4 | ECG | Routin | SVT | 1 Occurrences | | week | | e | (supraventricular | starting 04/06/2020 | | | | | tachycardia) ([facility]) | until 04/06/2021 | | | | | Pulmonary | | | | | | hypertension | | | | | | (moderate/severe) | | | | | | Stage 3 chronic | | | | | | kidney disease ([facility]) | | | | | | Liver transplant | | | | | | status ([facility]) | | + +------+--------+ + + documented as of this encounter Procedures + +--------+ + + + | Procedure Name | Priori | Date/Time | Associated Diagnosis | Comments | | | ty | | | | + +--------+ + + + | ECG 12 LEAD | Routin | 04/06/2020 | SVT | Results for this | | | e | 1:22 PM | (supraventricular | procedure are in the | | | | PDT | tachycardia) ([facility]) | results section. | + +--------+ + + + documented in this encounter Results ECG 12 lead (04/06/2020 1:22 PM PDT) + + + + + + | Component | Value | Ref Range | Performed | Pathologist | | | | | At | Signature | + + + + + + | VENTRICULAR | 62 | BPM | [facility] | | | RATE EKG | | | | | + + + + + + | ATRIAL RATE | 62 | BPM | [facility] | | + + + + + + | P-R | 208 | ms | [facility] | | | INTERVAL | | | | | + + + + + + | QRS | 174 | ms | [facility] | | | DURATION | | | | | + + + + + + | Q-T | 524 | ms | [facility] | | | INTERVAL | | | | | + + + + + + | Q-T | 531 | ms | [facility] | | | INTERVAL | | | | | | (CORRECTED) | | | | | + + + + + + | P WAVE AXIS | 63 | degrees | [facility] | | + + + + + + | QRS AXIS | -30 | degrees | [facility] | | + + + + + + | T AXIS | 16 | degrees | [facility] | | + + + + + + | INTERPRETAT | Normal sinus | | [facility] | | | ION TEXT | rhythmPossible Left | | | | | | atrial enlargementLeft | | | | | | axis deviationRight | | | | | | bundle branch blockT | | | | | | wave abnormality, | | | | | | consider lateral | | | | | | ischemiaAbnormal ECGNo | | | | | | previous ECGs | | | | | | availableConfirmed by | | | | | | SUMIT ESCAMILLA MD | | | | | | ([id number]) on 04/09/2020 | | | | | | 12:51:59 PM | | | | + + + [...] | | + +---------+ + + | [facility] | | | | + +---------+ + + documented in this encounter Visit Diagnoses + + | Diagnosis | + + | SVT (supraventricular tachycardia) (HCC) - Primary Other specified cardiac | | dysrhythmias | + + | Pulmonary hypertension (moderate/severe) Other chronic pulmonary heart diseases | + + | Stage 3 chronic kidney disease | + + | Liver transplant status (HCC) | + + | Paroxysmal A-fib (HCC) Atrial fibrillation | + + documented in this encounter
--- OUTSIDE RECORDS SUMMARY | ~2020-07-29 | XMS | Encounter Summary ---
Demographics + + + | Address | [address] | | | [place] [address] | + + + | Home Phone | | + + + | Preferred Language | Unknown | + + + | Marital Status | Single | + + + | Sabianism Affiliation | NON | + + + | Race | White | + + + | Ethnic Group | Not or | + + + Author + + + | Author | [facility] | + + + | Organization | [facility] | + + + | Address | Unknown | + + + | Phone | Unavailable | + + + Support + + + + + | Name | Relationship | Address | Phone | + + + + + | Doreen Manley | ECON | [address] | | | | | [place] | | | | | [address] | | + + + + + Care Team Providers + +------+ + | Care Prepress Proofer Name | Role | Phone | + +------+ + | Sharon David MD | PCP | | + +------+ + Encounter Details +--------+ + + + + | Date | Type | Department | Care Team | Description | +--------+ + + + + | 05/24/ | Abstract | Clinical | Vimal Crowe MD | | | 2019 | | Transplant Services | [address] | | | | | [address] | [address] [place], | | | | | [place], | [place] [address] | | | | | [place] [address] | [phone] | | | | | [phone] | | | +--------+ + + + [...] Rd | | | | | | [place], [place] | | | | | | [address] | | | | | | [phone] | | | | | | | | +--------+ + + + + | 09/27/ | Telephone-S | Liver Transplant | Vimal Crowe MD | | | 2019 | [place] | | [address] | | | | | | [facility] [[email or web address] [address] [place], | | | | | | [place] [address] | | | | | | [phone] | | | | | | | | +--------+ + + + + | 10/03/ | Appointment | Cardiology | | | | 2019 | | | | | +--------+ + + + + | 10/03/ | Office | Cardiology | Cyril Samuel | | | 2019 | Visit | Darren Gomez MD [address] | | | | | | [address] | | | | | | [place], [place] | | | | | | [address] | | | | | | [phone] | | | | | | | [...] Results LIVER TRANSPLANT POST PANEL (EXT RESULTS) (05/23/2020 7:28 AM PDT) + + + [...] + + + + | POTASSIUM, | 4.8 | mmol/L | [facility] | | | PLASMA | | | LAB - | | | (LAB) | | | [place] | | + + + + + + | CHLORIDE, | 97 | mmol/L | [facility] | | | PLASMA | | | LAB - | | | (LAB) | | | [place] | | + + + + + + | TOTAL CO2, | 30 | mmol/L | [facility] | | | PLASMA | | | LAB - | | | (LAB) | | | [place] | | + + + + + + | GLUCOSE, | 221 (A) | 65 - 110 mg/dL | [facility] | | | PLASMA | | | LAB - | | | (LAB) | | | [place] | | + + + + + + | BUN, PLASMA | 47 | mg/dL | [facility] | | | (LAB) | | | LAB - | | | | | | [place] | | + + + + + + | CREATININE | 2.24 | mg/dL | [facility] | | | PLASMA | | | LAB - | | | (LAB) | | | [place] | | + + + + + + | CALCIUM, | 9.9 | mg/dL | [facility] | | | PLASMA | | | LAB - | | | (LAB) | | | [place] | | + + + + + + | PHOSPHORUS, | 4.2 | mg/dL | [facility] | | | PLASMA | | | LAB - | | | (LAB) | | | [place] | | + + + + + + | MAGNESIUM,P | 2.1 | mg/dL | [facility] | | | LASMA | | | LAB - | | | | | | [place] | | + + + + + + | TOTAL | 6.9 | g/dL | [facility] | | | PROTEIN, | | | LAB - | | | PLASMA | | | [place] | | | (LAB) | | | | | + + + + + + | ALBUMIN, | 4.2 [...] + + + + | AST(SGOT) | 14 | U/L | [facility] | | | | | | LAB - | | | | | | [place] | | + + + + + + | ALT (SGPT) | 17 | U/L | [facility] | | | | | | LAB - | | | | | | [place] | | + + + + + + | URIC ACID, | 6.7 | mg/dL | [facility] | | | PLASMA | | | LAB - | | | (LAB) | | | [place] | | + + + + + + | WHITE CELL | 5.5 | K/cu mm | [facility] | | | COUNT | | | LAB - | | | | | | [place] | | + + + + + + | HEMATOCRIT | 34.1 | % | [facility] | | | | | | LAB - | | | | | | [place] | | + + + + + + | HEMOGLOBIN | 11.8 (A) | 13.5 - 17.5 | [facility] | | | | | g/dL | LAB - | | | | | | [place] | | + + + + + + | PLATELET | 106 | K/cu mm | [facility] | | [...] + | [facility] - | [address] | [place] | [phone] | | [place] | | | | + + + + + documented in this encounter Visit Diagnoses Not on filedocumented in this encounter"
--- OUTSIDE RECORDS SUMMARY | ~2020-07-29 | XMS | Encounter Summary ---
Demographics + + + | Address | [address] | | | [place] [address] | + + + | Home Phone | | + + + | Preferred Language | Unknown | + + + | Marital Status | Single | + + + | Muslim Affiliation | NON | + + + [...] [place] | | | | | [address] | | + + + + + Care Team Providers + +------+ + | Care Cryptologic Supervisor Name | Role | Phone | + +------+ + | Sharon David MD | PCP | | + +------+ + Encounter Details +--------+ + + + + | Date | Type | Department | Care Team | Description | +--------+ + + + + | 05/24/ | Pharmacy | [facility] | | | | 2020 | Visit | [address] | | | | | | [address] | | | | | | [place] [address] | | | | | | [phone] | | | +--------+ + + + [...] 08/08/ | Telephone-S | Nephrology | Angélica hCao, | | | 2019 | [place] | | [address] | | | | | | [address] | | | | | | [place], [place] | | | | | | [address] | | | | | | [phone] | | | | | | | | +--------+ + + + + | 09/27/ | Telephone-S | Liver Transplant | Vimal Crowe MD | | | 2019 | [place] | | [address] | | | | | | [address], | | | | | | [place] [address] | | | | | | [phone] | | | | | | | [...] Rd | | | | | | [place] | | | | | | [address] | | | | | | [phone] | | | | | | | | +--------+ + + + + documented as of this encounter Visit Diagnoses Not on filedocumented in this encounter"
--- OUTSIDE RECORDS SUMMARY | ~2020-07-29 | XMS | Encounter Summary ---
Demographics + + + | Address | [address] | | | [place] [address] | + + + | Home Phone | | + + + | Preferred Language | Unknown | + + + | Marital Status | Single | + + + | Confucianism Affiliation | NON | + + + [...] [place] | | | | | [address] | | + + + + + Care Team Providers + +------+ + | Care Recycling Program Manager Name | Role | Phone | + +------+ + | Sharon David MD | PCP | | + +------+ + Reason for Visit + +--------+ + | Reason | Onset | Comments | | | Date | | + +--------+ + | Care Questions | 05/12/ | | | | 2019 | | + +--------+ + Encounter Details +--------+ + + + + | Date | Type | Department | Care Team | Description | +--------+ + + + + | 05/12/ | Telephone | Clinical | Haley Fernández, | Care Questions | | 2018 | | Transplant Services | RN [address] | | | | | [address] | [address] | | | | | [place], | [place], [place] | | | | | [place] [address] | [address] | | | | | [phone] | | | +--------+ + + + [...] this encounter Miscellaneous Notes Telephone Encounter - Haley Fernández RN - 05/12/2019 4:12 PM PDTCalled Donell's sister, Monster thomas, back. She was asking if the Urology Consult could possibly be done next week when the y are here for multiple other appointments (patient lives 3.5 hrs away). I called and spoke with the Urology project scheduler at [phone]. Explained patient is very sick an d cannot be listed until Urology workup for microscopic hematuria is complete. Cardiology Technician wi ll speak with the physician to see if it is possible to get Donell in next week when he is here . She is to call me back. I informed Doreen I will call her when I have an update. documented in this encounter Plan of Treatment +--------+ + + + + | Date | Type | Specialty | Care Team | Description | +--------+ + + + + | 08/08/ | Telephone-S | Nephrology | Angélica Chao, | | | 2019 | [place] | | [address] | | | | | | [address] | | | | | | [place], [place] | | | | | | [address] | | | | | | [phone] | | | | | | | | +--------+ + + + + | 09/27/ | Telephone-S | Liver Transplant | Vimal Crowe MD | | | 2019 | [place] | | [address] | | | | | | [address], | | | | | | [place] [address] | | | | | | [phone] | | | | | | | | +--------+ + + + + | 10/03/ | Appointment | Cardiology | | | | 2019 | | | | | +--------+ + + + + | 10/03/ | Office | Cardiology | Cyril Samuel | | | 2019 | Visit | | MD Patricia [address] [facility] [address] | | | | | | [address] | | | | | | [place] | | | | | | [address] | | | | | | [phone] | | | | | | | | +--------+ + + + + documented as of this encounter Visit Diagnoses Not on filedocumented in this encounter"
--- OUTSIDE RECORDS SUMMARY | ~2020-07-29 | XMS | Encounter Summary ---
Demographics + + + | Address | [address] | | | [place] [address] | + + + | Home Phone | | + + + | Preferred Language | Unknown | + + + | Marital Status | Single | + + + | Moravian Affiliation | NON | + + + [...] | | | | | [place] | | | | | [address] | | + + + + + Care Team Providers + +------+ + | Care Crayon Painter Name | Role | Phone | + [...] | 04/20/ | Refill | Clinical | Marsha Garcia, | Refill Request | | 2020 | | Transplant Services | [address] | | | | | [address] | [address] | | | | | [place], | [place], [place] | | | | | [place] [address] | [address] | | | | | [phone] | [phone] | | | | | | | [...] Angélica Chao, | | | 2019 | [place] | | [address] | | | | | | [address] | | | | | | [place], [place] | | | | | | [address] | | | | | | [phone] | | | | | | | | +--------+ + + + + | 09/27/ | Telephone-S | Liver Transplant | Vimal Crowe MD | | | 2019 | [place] | | [address] | | | | | | [address], | | | | | | [place] [address] | | | | | | [phone] | | | | | | | [...] [place] | | | | | | [address] | | | | | | [phone] | | | | | | | | +--------+ + + + + documented as of this encounter Visit Diagnoses Not on filedocumented in this encounter"
--- OUTSIDE RECORDS SUMMARY | ~2020-07-29 | XMS | Encounter Summary ---
Demographics + + + | Address | [address] | | | [place] [address] | + + + | Home Phone [...] Author + + + | Author | [facility] | + + + | Organization | [facility] | + + + | Address | Unknown | + + + | Phone | Unavailable | + + + Support + + + + + | Name | Relationship | Address | Phone | + + + + + | Doreen Manley | ECON | [address] | | | | | [place] | | | | | [address] | | + + + + + Care Team Providers + +------+ + | Care Sales Specialist Name | Role | Phone | + +------+ + | Sharon David MD | PCP | | + +------+ + Encounter Details +--------+ + + + + | Date | Type | Department | Care Team | Description | +--------+ + + + + | 05/24/ | Pharmacy | Pharmacy @ [facility] | | | | 2019 | Visit | [address] | | | | | | [address] Mailcode: | | | | | | [facility] | | | | | | and Healing, | | | | | | Building 2 | | | | | | [place], [place] | | | | | | [address] | | | +--------+ + + + [...] Rd | | | | | | [place], [place] | | | | | | [address] | | | | | | [phone] | | | | | | | | +--------+ + + + + | 09/27/ | Telephone-S | Liver Transplant | Vimal Crowe MD | | | 2019 | cheduled | | [address] | | | | | | [facility] [address] [place], | | | | | | [place] [address] | | | | | | [phone] | | | | | | | [...] Rd | | | | | | [place] | | | | | | [address] | | | | | | [phone] | | | | | | | | +--------+ + + + + documented as of this encounter Visit Diagnoses Not on filedocumented in this encounter"
--- OUTSIDE RECORDS SUMMARY | ~2020-07-29 | XMS | Encounter Summary ---
Demographics + + + | Address | [address] | | | [place] [address] | + + + | Home Phone | | + + + | Preferred Language | Unknown | + + + | Marital Status | Single | + + + | Catholic Affiliation | NON | + + + [...] [place] | | | | | [address] | | + + + + + Care Team Providers + +------+ + | Care Emergency Veterinary Assistant Name | Role | Phone | + +------+ + | Sharon David MD | PCP | | + +------+ + Encounter Details +--------+ + + + + | Date | Type | Department | Care Team | Description | +--------+ + + + + | 04/20/ | MyChart | Diagnostic Imaging | | Regarding your | | 2018 | Encounter | Services [address] | | appointment on | | | | [address] | | 04/22/2019 | | | | [place], [place] | | | | | | [address] | | | +--------+ + + + [...] | | 2019 | [place] | | [address] [facility] [address] | | | | | | [address] | | | | | | [place], [place] | | | | | | [address] | | | | | | [phone] | | | | | | | | +--------+ + + + + | 09/27/ | Telephone-S | Liver Transplant | Vimal Crowe MD | | 2019 | cheduled | | [address] | | | | | | [place], | | | | | | [place] [address] | | | | | | [phone] | | | | | | | [...] Rd | | | | | | [facility] | | | | | | [address] | | | | | | [phone] | | | | | | | | +--------+ + + + + documented as of this encounter Visit Diagnoses Not on filedocumented in this encounter"
--- OUTSIDE RECORDS SUMMARY | ~2020-07-29 | XMS | Encounter Summary ---
Demographics + + + | Address | [address] | | | [place] [address] | + + + | Home Phone | | + + + | Preferred Language | Unknown | + + + | Marital Status | Single | + + + | Hindu Affiliation | NON | + + + | Race | White | + + + | Ethnic Group | Not or | + + + Author + + + | Author | [facility] | + + + | Organization | [facility] | + + + | Address | Unknown | + + + | Phone | Unavailable | + + + Support + + + + + | Name | Relationship | Address | Phone | + + + + + | Doreen Manley | ECON | [address] | | | | | [place] | | | | | [address] | | + + + + + Care Team Providers + +------+ + | Care Marketing Systems Analyst Name | Role | Phone | + +------+ + | Sharon David MD | PCP | | + +------+ + Encounter Details +--------+ + + + + | Date | Type | Department | Care Team | Description | +--------+ + + + + | 10/08/ | Pharmacy | Outpatient Retail | | | | 2018 | Visit | [facility]acy | | | | | | [address] | | | | | | [address] [place], [place] | | | | | | [address] | | | | | | [phone] | | | +--------+ + + + [...] Rd | | | | | | [place], [place] | | | | | | [address] | | | | | | [phone] | | | | | | | | +--------+ + + + + | 09/27/ | Telephone-S | Liver Transplant | Vimal Crowe MD | | | 2019 | cheduled | | [address] | | | | | | [facility] [place], | | | | | | [place] [address] | | | | | | [phone] | | | | | | | [...] Rd | | | | | | [place], [place] | | | | | | [address] | | | | | | [phone] | | | | | | | | +--------+ + + + + documented as of this encounter Visit Diagnoses Not on filedocumented in this encounter"
--- OUTSIDE RECORDS SUMMARY | ~2020-07-29 | XMS | Encounter Summary ---
Demographics + + + | Address | [address] | | | [place] [address] | + + + | Home Phone | | + + + | Preferred Language | Unknown | + + + | Marital Status | Single | + + + | Anabaptism Affiliation | NON | + + + [...] | | | | | [place] | | | | | [address] | | + + + + + Care Team Providers + +------+ + | Care Concrete Tester Name | Role | Phone | + +------+ + | Sharon David MD | PCP | | + +------+ + Encounter Details +--------+ + + + + | Date | Type | Department | Care Team | Description | +--------+ + + + + | 10/28/ | Pharmacy | Specialty Pharmacy | | | | 2019 | Visit | Services [address] | | | | | [address] | | | | | | [place], [place] | | | | | | [address] | | | | | | [phone] | | | +--------+ + + + [...] | | 2019 | [place] | | [address] | | | | | | [address] | | | | | | [place], [place] | | | | | | [address] | | | | | | [phone] | | | | | | | | +--------+ + + + + | 09/27/ | Telephone-S | Liver Transplant | Vimal Crowe MD | | | 2019 | cheduled | | [address] | | | | | | [facility] [place], | | | | | | [place] [address] | | | | | | [phone] | | | | | | | | +--------+ + + + + | 10/03/ | Appointment | Cardiology | | | | 2019 | | | | | +--------+ + + + + | 10/03/ | Office | Cardiology | Cyril Samuel | | | 2019 | Visit | | MD Patricia [address] | | | | | | [address] | | | | | | [place], [place] | | | | | | [address] | | | | | | [phone] | | | | | | | | +--------+ + + + + documented as of this encounter Visit Diagnoses Not on filedocumented in this encounter"
--- OUTSIDE RECORDS SUMMARY | ~2020-07-29 | XMS | Encounter Summary ---
Demographics + + + | Address | [address] | | | [place] [address] | + + + | Home Phone [...] + + + | Author | [facility] | + + + | Organization | [facility] | + + + | Address | Unknown | + + + | Phone | Unavailable | + + + Support + + + + + | Name | Relationship | Address | Phone | + + + + + | Doreen Manley | ECON | [address] | | | | | [place] | | | | | [address] | | + + + + + Care Team Providers + +------+ + | Care Cream Dumper Name | Role | Phone | + +------+ + | Sharon David MD | PCP | | + +------+ + Encounter Details +--------+ + + + + | Date | Type | Department | Care Team | Description | +--------+ + + + + | 11/18/ | Pharmacy | Outpatient Retail | | | | 2019 | Visit | Clinic Pharmacy | | | | | | [address] | | | | | | [address] [place], [place] | | | | | | [address] | | | | | | [phone] | | | +--------+ + + + [...] | | | | | | [place], [place] | | | | | | [address] | | | | | | [phone] | | | | | | | | +--------+ + + + + | 09/27/ | Telephone-S | Liver Transplant | Vimal Crowe MD | | | 2019 | cheduled | | [address] | | | | | | [facility] [place], | | | | | | [place] [address] | | | | | | [phone] | | | | | | | [...] [address] | | | | | | [place], [place] | | | | | | [address] | | | | | | [phone] | | | | | | | | +--------+ + + + + documented as of this encounter Visit Diagnoses Not on filedocumented in this encounter"
--- OUTSIDE RECORDS SUMMARY | ~2020-07-29 | XMS | Encounter Summary ---
Demographics + + + | Address | [address] | | | [place] [address] | + + + | Home Phone [...] Author + + + | Author | [facility] | + + + | Organization | [facility] | + + + | Address | Unknown | + + + | Phone | Unavailable | + + + Support + + + + + | Name | Relationship | Address | Phone | + + + + + | Doreen Manley | ECON | [address] | | | | | [place] | | | | | [address] | | + + + + + Care Team Providers + +------+ + | Care Registered Medical Assistant Name | Role | Phone | + +------+ + | Sharon David MD | PCP | | + +------+ + Encounter Details +--------+ + + + + | Date | Type | Department | Care Team | Description | +--------+ + + + + | 01/18/ | Pharmacy | [facility] | | | | 2020 | Visit | [address] | | | | | | [address] | | | | | | [place] [address] | | | | | | [phone] | | | +--------+ + + + [...] Rd | | | | | | [place], [place] | | | | | | [address] | | | | | | [phone] | | | | | | | | +--------+ + + + + | 09/27/ | Telephone-S | Liver Transplant | Vimal Crowe MD | | | 2019 | cheduled | | [address] | | | | | | [address], | | | | | | [place] [address] | | | | | | [phone] | | | | | | | [...] Rd | | | | | | [place] | | | | | | [address] | | | | | | [phone] | | | | | | | | +--------+ + + + + documented as of this encounter Visit Diagnoses Not on filedocumented in this encounter"
--- OUTSIDE RECORDS SUMMARY | ~2020-07-29 | XMS | Encounter Summary ---
Demographics + + + | Address | [address] | | | [place] [address] | + + + | Home Phone | | + + + | Preferred Language | Unknown | + + + | Marital Status | Single | + + + | Buddhist Affiliation | NON | + + + | Race | White | + + + | Ethnic Group | Not or | + + + Author + + + | Author | [facility] | + + + | Organization | [facility] | + + + | Address | Unknown | + + + | Phone | Unavailable | + + + Support + + + + + | Name | Relationship | Address | Phone | + + + + + | Doreen Manley | ECON | [address] | | | | | [place] | | | | | [address] | | + + + + + Care Team Providers + +------+ + | Care Veneer Clipper Helper Name | Role | Phone | + +------+ + | Sharon David MD | PCP | | + +------+ + Encounter Details +--------+ + + + + | Date | Type | Department | Care Team | Description | +--------+ + + + + | 03/16/ | MyChart | Clinical | | Transplant Patient | | 2020 | Encounter | Transplant Services | | Precautions | | | | [address] | | | | | | [place], | | | | | | [place] [address] | | | | | | [phone] | | | +--------+ + + + [...] | 2019 | [place] | | [address] [facility] | | | | | | [address] | | | | | | [place], [place] | | | | | | [address] | | | | | | [phone] | | | | | | | | +--------+ + + + + | 09/27/ | Telephone-S | Liver Transplant | Vimal Crowe MD | | | 2019 | [place] | | [address] | | | | | | [address], | | | | | | [place] [address] | | | | | | [phone] | | | | | | | [...] Rd | | | | | | [place], [place] | | | | | | [address] | | | | | | [phone] | | | | | | | | +--------+ + + + + documented as of this encounter Visit Diagnoses Not on filedocumented in this encounter"
--- OUTSIDE RECORDS SUMMARY | ~2020-07-29 | XMS | Encounter Summary ---
Demographics + + + | Address | [address] | | | [place] [address] | + + + | Home Phone | | + + + | Preferred Language | Unknown | + + + | Marital Status | Single | + + + | Christian Affiliation | Unknown | + + + | Race | White | + + + | Ethnic Group | Not or | + + + Author + + + | Author | [facility] | | | and [place] | + + + | Organization | [facility] | | | and [place] [...] Team Providers + +------+ + | Care Application Administrator Name | Role | Phone | + +------+ + | Sharon David MD | PCP | | + +------+ + Encounter Details +--------+ + + + + | Date | Type | Department | Care Team | Description | +--------+ + + + + | 07/29/ | Orders Only | [facility] | David Quevedo MD | | | 2018 | | [address] | [address] | | | | | [place], [place] | [place] | | | | | [address] | [address] | | | | | [phone] | | | +--------+ + + + + Social History + +-------+ +--------+------+ | Tobacco Use | Types | Packs/Day | Years | Date | | | | | Used | | + +-------+ +--------+------+ | Never Assessed | | | | | + +-------+ +--------+------+ + + + | Sex Assigned at [...] [facility] | | | | | | [place] [address] | | | | | | [phone] | | | | | | | | +--------+---------+ + + + documented as of this encounter Procedures + +--------+ + + + | Procedure Name | Priori | Date/Time | Associated Diagnosis | Comments | | | ty | | | | + +--------+ + + + | EXTERNAL LAB: CBC | Routin | 07/29/2018 | | Results for this | | | e | 1:48 PM | | procedure are in the | | | | PDT | | results section. | + +--------+ + + + | SLIDE SCAN | Routin | 07/29/2018 | | Results for this | | | e | 1:48 PM | | procedure are in the | | | | PDT | | results section. | + +--------+ + + + | RETIC COUNT | Routin | 07/29/2018 | | Results for this | | | e | 1:48 PM | | procedure are in the | | | | PDT | | results section. | + +--------+ + + + documented in this encounter Results Slide Scan (DNS) (07/29/2018 1:48 PM PDT) + + + + + + | Component | Value | Ref Range | Performed | Pathologist | | | | | At | Signature | + + + + + + | SLIDE | REQUESTED, SLIDE SENT | | EXTERNAL | | | REVIEWED | TO PHYSICIAN | | LAB | | + + + + + + + + | Specimen | + + | | + + + +---------+ + + | Performing | Address | City/State/Zipcode | Phone Number | | Organization | | | | + +---------+ + + | EXTERNAL LAB | | | | + +---------+ + + Retic Count (07/29/2018 1:48 PM PDT) + +-------+ + + + | Component | Value | Ref Range | Performed | Pathologist | | | | | At | Signature | + +-------+ + + + | % | 1.6 | 0.4 - 2.7 % | EXTERNAL | | | Reticulocyt | | | LAB | | | e Count | | | | | + +-------+ + + + + + | Specimen | + + | Blood specimen | | (specimen) | + + + +---------+ + + | Performing | Address | City/State/Zipcode | Phone Number | | Organization | | | | + +---------+ + + | EXTERNAL LAB | | | | + +---------+ + + External Lab: CBC (07/29/2018 1:48 PM PDT) + + + + + + | Component | Value | Ref Range | Performed | Pathologist | | | | | At | Signature | + + + + + + | WBC | 6.05 | 3.80 - 11.00 | EXTERNAL | | | | | 10*3/uL | LAB | | + + + + + + | Non- | 1.88 (L) | 4.20 - 5.70 | EXTERNAL | | | Red Blood | | 10*6/uL | LAB | | | Cells | | | | | | Counted | | | | | + + + + + + | Hemoglobin | 6.4 (LL)Comment: RESULT | 13.2 - 17.0 | EXTERNAL | | | | VERIFIED | g/dL | LAB | | + + + + + + | Hematocrit, | 17.6 (LL)Comment: RESULT | 39.0 - 50.0 % | EXTERNAL | | | POC | VERIFIED | | LAB | | + + + + + + | MCV | 93.6 | 80.0 - 100.0 fL | EXTERNAL | | | | | | LAB | | + + + + + + | MCH | 34.1 (H) | 27.0 - 34.0 pg | EXTERNAL | | | | | | LAB | | + + + + + + | MCHC | 36.4 (H) | 32.0 - 35.5 | EXTERNAL | | | | | g/dL | LAB | | + + + + + + | RDW-CV | 77.4 (H) | 37 - 53 fL | EXTERNAL | | | | | | LAB | | + + + + + + | Platelet | 86 (L) | 150 - 400 | EXTERNAL | | | Count | | 10*3/uL | LAB | | | Plasma | | | | | + + + + + + | MPV | 7.1 | fL | EXTERNAL | | | | | | LAB | | + + + + + + | Differentia | AUTOMATED | | EXTERNAL | | | l Type | | | LAB | | + + + + + + | % Segmented | 69.19 | % | EXTERNAL | | | | | | LAB | | | Neutrophils | | | | | + + + + + + | % | 19.81 | % | EXTERNAL | | | Lymphocytes | | | LAB | | + + + + + + | % Monocytes | 7.21 | % | EXTERNAL | | | | | | LAB | | + + + + + + | % | 3.31 | % | EXTERNAL | | | Eosinophils | | | LAB | | + + + + + + | % Basophils | 0.48 | % | EXTERNAL | | | | | | LAB | | + + + + + + | Absolute | 4.18 | 1.90 - 7.40 | EXTERNAL | | | Segmented | | 10*3/uL | LAB | | | Neutrophils | | | | | + + + + + + | Absolute | 1.20 | 1.00 - 3.90 | EXTERNAL | | | Lymphocytes | | 10*3/uL | LAB | | + + + + + + | Absolute | 0.44 | 0.00 - 0.80 | EXTERNAL | | | Monocytes | | 10*3/uL | LAB | | + + + + + + | Absolute | 0.20 | 0.00 - 0.50 | EXTERNAL | | | Eosinophils | | 10*3/uL | LAB | | + + + + + + | Absolute | 0.03 | 0.00 - 0.10 | EXTERNAL | | | Basophils | | 10*3/uL | LAB | | + + + + + + | RBC | 3+ | | EXTERNAL | | | Morphology | | | LAB | | + + + + + + | RBC | ANISO | | EXTERNAL | | | Morphology | | | LAB | | + + + + + + | RBC | 1+ | | EXTERNAL | | | Morphology | | | LAB | | + + + + + + | RBC | POIK | | EXTERNAL | | | Morphology | | | LAB | | + + + + + + | Platelet | DECREASED | | EXTERNAL | | | Estimate | | | LAB | | + + + + + + + + | Specimen | + + | Blood specimen | | (specimen) | + + + +---------+ + + | Performing | Address | City/State/Zipcode | Phone Number | | Organization | | | | + +---------+ + + | EXTERNAL LAB | | | | + +---------+ + + documented in this encounter Visit Diagnoses Not on filedocumented in this encounter"
--- OUTSIDE RECORDS SUMMARY | ~2020-07-29 | XMS | Encounter Summary ---
Demographics + + + | Address | [address] | | | [place] [address] | + + + | Home Phone | | + + + | Preferred Language | Unknown | + + + | Marital Status | Single | + + + | Advent Affiliation | NON | + + + | Race | White | + + + | Ethnic Group | Not or | + + + Author + + + | Author | [facility] | + + + | Organization | [facility] | + + + | Address | Unknown | + + + | Phone | Unavailable | + + + Support + + + + + | Name | Relationship | Address | Phone | + + + + + | Doreen Manley | ECON | [address] | | | | | [place] | | | | | [address] | | + + + + + Care Team Providers + +------+ + | Care Drilling Engineer Name | Role | Phone | + +------+ + | Sharon David MD | PCP | | + +------+ + Encounter Details +--------+ + + + + | Date | Type | Department | Care Team | Description | +--------+ + + + + | 08/15/ | Procedure | [address] | | | | 2018 | Pass | [address] | | | | | | [facility] | | | | | | [facility] Admitting | | | | | | Desk Located on the | | | | | | 9th floor | | | | | | [place], [place] | | | | | | [address] | | | +--------+ + + + [...] Rd | | | | | | [facility] [place] | | | | | | [address] | | | | | | [phone] | | | | | | | | +--------+ + + + + | 09/27/ | Telephone-S | Liver Transplant | Vimal Crowe MD | | | 2019 | [place] | | [address] | | | | | | [address], | | | | | | [place] [address] | | | | | | [phone] | | | | | | | [...] | | | | | | [place], [place] | | | | | | [address] | | | | | | [phone] | | | | | | | | +--------+ + + + + documented as of this encounter Visit Diagnoses Not on filedocumented in this encounter"
--- OUTSIDE RECORDS SUMMARY | ~2020-07-29 | XMS | Encounter Summary ---
Demographics + + + | Address | [address] | | | [place] [address] | + + + | Home Phone | | + + + | Preferred Language | Unknown | + + + | Marital Status | Single | + + + | Adventist Affiliation | NON | + + + | Race | White | + + + | Ethnic Group | Not or | + + + Author + + + | Author | [facility] | + + + | Organization | [facility] | + + + | [...] [place] | | | | | [address] | | + + + + + Care Team Providers + +------+ + | Care Ged Teacher Name | Role | Phone | + +------+ + | Sharon David MD | PCP | | + +------+ + Encounter Details +--------+ + + + + | Date | Type | Department | Care Team | Description | +--------+ + + + + | 07/15/ | Pharmacy | [facility] | | | | 2020 | Visit | [address] | | | | | | [address] | | | | | | [place] [address] | | | | | | [phone] | | | +--------+ + + + [...] Rd | | | | | | [place], [place] | | | | | | [address] | | | | | | [phone] | | | | | | | | +--------+ + + + + | 09/27/ | Telephone-S | Liver Transplant | Vimal Crowe MD | | | 2019 | cheduled | | [address] | | | | | | [address], | | | | | | [place] [address] | | | | | | [phone] | | | | | | | [address] Rd | | | | | | [place] | | | | | | [address] | | | | | | [phone] | | | | | | | | +--------+ + + + + documented as of this encounter Visit Diagnoses Not on filedocumented in this encounter"
--- OUTSIDE RECORDS SUMMARY | ~2020-07-29 | XMS | Encounter Summary ---
Demographics + + + | Address | [address] | | | [place] [address] | + + + | Home Phone | | + + + | Preferred Language | Unknown | + + + | Marital Status | Single | + + + | Mosque Affiliation | NON | + + + | Race | White | + + + | Ethnic Group | Not or | + + + Author + + + | Author | [facility] | + + + | Organization | [facility] | + + + | Address | Unknown | + + + | Phone | Unavailable | + + + Support + + + + + | Name | Relationship | Address | Phone | + + + + + | Doreen Manley | ECON | [address] | | | | | [place] | | | | | [address] | | + + + + + Care Team Providers + +------+ + | Care Flamer After Lasting Name | Role | Phone | + +------+ + | Sharon David MD | PCP | | + +------+ + Reason for Visit + +--------+ + | Reason | Onset | Comments | | | Date | | + +--------+ + | Refill Request | 11/19/ | | | | 2020 | | + +--------+ + Encounter Details +--------+--------+ + + + | Date | Type | Department | Care Team | Description | +--------+--------+ + + + | 11/19/ | Refill | Clinical | Cecille Brunner RN | Refill Request | | 2020 | | Transplant Services | [address] | | | | | [address] | [place], | | | | | [place], | [place] [address] | | | | | [place] | | | | | | [phone] | | | +--------+--------+ + + + [...] Rd | | | | | | [place], [place] | | | | | | [address] | | | | | | [phone] | | | | | | | | +--------+ + + + + | 09/27/ | Telephone-S | Liver Transplant | Vimal Crowe MD | | | 2019 | [place] | | [address] | | | | | | [address] | | | | | | [place] [address] | | | | | | [phone] | | | | | | | | +--------+ + + + + | 10/03/ | Appointment | Cardiology | | | | 2019 | | | | | +--------+ + + + + | 10/03/ | Office | Cardiology | Cyril Samuel | | | 2020 | Visit | | MD [place] [address] | | | | | | [address] | | | | | | [place] | | | | | | [address] | | | | | | [phone] | | | | | | | | +--------+ + + + + documented as of this encounter Visit Diagnoses Not on filedocumented in this encounter"
--- OUTSIDE RECORDS SUMMARY | ~2020-07-29 | XMS | Encounter Summary ---
Demographics + + + | Address | [address] | | | [place] [address] | + + + | Home Phone [...] + + + | Author | [facility] | + + + | Organization | [facility] | + + + | Address | Unknown | + + + | Phone | Unavailable | + + + Support + + + + + | Name | Relationship | Address | Phone | + + + + + | Doreen Manley | ECON | [address] | | | | | [place] | | | | | [address] | | + + + + + Care Team Providers + +------+ + | Care Chemical Analytical Sampler Name | Role | Phone | + +------+ + | Sharon David MD | PCP | | + +------+ + Reason for Visit + +--------+ + | Reason | Onset | Comments | | | Date | | + +--------+ + | Lab Draw | 06/23/ | | | | 2018 | | + +--------+ + Encounter Details +--------+ + + + + | Date | Type | Department | Care Team | Description | +--------+ + + + + | 06/23/ | Abstract | Clinical | Vimal Crowe MD | Lab Draw | | 2019 | | Transplant Services | [address] | | | | | [address] | [address] [place], | | | | | [place], | [place] [address] | | | | | [place] [address] | [phone] | | | | | [phone] | | | +--------+ + + + [...] | 2019 | cheduled | | [address] [facility] [address] [facility] [address] | | | | | | [address] | | | | | | [place], [place] | | | | | | [address] | | | | | | [phone] | | | | | | | | +--------+ + + + + | 09/27/ | Telephone-S | Liver Transplant | Vimal Crowe MD | | | 2019 | cheduled | | [address] | | | | | | [facility] [address] [place], | | | | | | [place] [address] | | | | | | [phone] | | | | | | | | +--------+ + + + + | 10/03/ | Appointment | Cardiology | | | | 2019 | | | | | +--------+ + + + + | 10/03/ | Office | Cardiology | Cyril Samuel | | | 2019 | Visit | | MD [place] [address] [facility] | | | | | | [address] | | | | | | [place], [place] | | | | | | [address] | | | | | | [phone] | | | | | | | | +--------+ + + + + documented as of this encounter Procedures + +--------+ + + + | Procedure Name | Priori | Date/Time | Associated Diagnosis | Comments | | | ty | | | | + +--------+ + + + | LIVER PRE-TRANSPLANT | Routin | 06/16/2019 | | Results for this | | EXTERNAL MELD LAB | e | | | procedure are in the | | RESULTS PANEL (FOR | | | | results section. | | EXTERNAL RESULT | | | | | | ENTRY ONLY) | | | | | + +--------+ + + + documented in this encounter Results LIVER PRE-TRANSPLANT EXTERNAL MELD LAB RESULTS PANEL (FOR EXTERNAL RESULT ENTRY ONLY) (05/22) + +-------+ + + + | Component | Value | Ref Range | Performed | Pathologist | | | | | At | Signature | + +-------+ + + + | NICOTINE, | <2 | | [facility] | | | URINE | | | LABORATORIE | | | | | | S | | + +-------+ + + + | COTININE, | <5 | | [facility] | | | URINE | | | LABORATORIE | | | | | | S | | + +-------+ + + + | 3-OH-COTINI | <50 | | [facility] | | | NE | | | LABORATORIE | | | | | | S | | + +-------+ + + + | NORNICOTINE | <2 | | [facility] | | | , URINE | | | LABORATORIE | | | | | | S | | + +-------+ + + + | ANABASINE, | <3 | | [facility] | | | URINE | | | LABORATORIE | | | | | | S | | + +-------+ + + + + + | Specimen | + + | | + + + + + | Narrative | Performed At | + + + | | | + + + + + + + + | Performing | Address | City/State/Zipcode | Phone Number | | Organization | | | | + + + + + | [employer] | [address] | [place], [place] | [phone] | | | | [address] | | + + + + + documented in this encounter Visit Diagnoses Not on filedocumented in this encounter"
--- OUTSIDE RECORDS SUMMARY | ~2020-07-29 | XMS | Encounter Summary ---
Demographics + + + | Address | [address] | | | [place] [address] | + + + | Home Phone | | + + + | Preferred Language | Unknown | + + + | Marital Status | Single | + + + | Mandaen Affiliation | NON | + + + | Race | White | + + + | Ethnic Group | Not or | + + + Author + + + | Author | [facility] | + + + | Organization | [facility] | + + + | Address | Unknown | + + + | Phone | Unavailable | + + + Support + + + + + | Name | Relationship | Address | Phone | + + + + + | Doreen Manley | ECON | [address] | | | | | [place] | | | | | [address] | | + + + + + Care Team Providers + +------+ + | Care Mimeographer Name | Role | Phone | + +------+ + | Sharon David MD | PCP | | + +------+ + Encounter Details +--------+ + + + + | Date | Type | Department | Care Team | Description | +--------+ + + + + | 08/11/ | Pharmacy | Outpatient Retail | | | | 2018 | Visit | [facility] | | | | | | [address] | | | | | | [place], [place] | | | | | | [address] | | | | | | [phone] | | | +--------+ + + + [...] Rd | | | | | | [place], [place] | | | | | | [address] | | | | | | [phone] | | | | | | | | +--------+ + + + + | 09/27/ | Telephone-S | Liver Transplant | Vimal Crowe MD | | | 2019 | cheduled | | [address] | | | | | | [facility] [place], | | | | | | [place] [address] | | | | | | [phone] | | | | | | | [address] | | | | | | [place], [place] | | | | | | [address] | | | | | | [phone] | | | | | | | | +--------+ + + + + documented as of this encounter Visit Diagnoses Not on filedocumented in this encounter"
--- OUTSIDE RECORDS SUMMARY | ~2020-07-29 | XMS | Encounter Summary ---
Demographics + + + | Address | [address] | | | [place] [address] | + + + | Home Phone | | + + + | Preferred Language | Unknown | + + + | Marital Status | Single | + + + | Hinduism Affiliation | NON | + + + [...] | | | | | [place] | | | | | [address] | | + + + + + Care Team Providers + +------+ + | Care Research Assoc Name | Role | Phone | + +------+ + | Sharon David MD | PCP | | + +------+ + Encounter Details +--------+ + + + + | Date | Type | Department | Care Team | Description | +--------+ + + + + | 09/07/ | Pharmacy | [facility] | | | | 2019 | Visit | [address] | | | | | | [address] | | | | | | [place] [address] | | | | | | [phone] | | | +--------+ + + + [...] Rd | | | | | | [place], [place] | | | | | | [address] | | | | | | [phone] | | | | | | | | +--------+ + + + + | 09/27/ | Telephone-S | Liver Transplant | Vimal Crowe MD | | | 2019 | cheduled | | [address] | | | | | | [address], | | | | | | [place] [address] | | | | | | [phone] | | | | | | | [...] Rd | | | | | | [place] | | | | | | [address] | | | | | | [phone] | | | | | | | | +--------+ + + + + documented as of this encounter Visit Diagnoses Not on filedocumented in this encounter"
--- OUTSIDE RECORDS SUMMARY | ~2020-07-29 | XMS | Encounter Summary ---
Demographics + + + | Address | [address] | | | [place] [address] | + + + | Home Phone | | + + + | Preferred Language | Unknown | + + + | Marital Status | Single | + + + | Oriental Orthodox Affiliation | NON | + + + [...] [place] | | | | | [address] | | + + + + + Care Team Providers + +------+ + | Care Motor Coach Bus Driver Name | Role | Phone | + +------+ + | Sharon David MD | PCP | | + +------+ + Encounter Details +--------+ + + + + | Date | Type | Department | Care Team | Description | +--------+ + + + + | 09/16/ | Pharmacy | Specialty Pharmacy | | | | 2019 | Visit | Services [address] | | | | [address] | | | | | | [place], [place] | | | | | | [address] | | | | | | [phone] | | | +--------+ + + + [...] | | 2019 | [place] | | [address] | | | | | | [address] | | | | | | [place], [place] | | | | | | [address] | | | | | | [phone] | | | | | | | | +--------+ + + + + | 09/27/ | Telephone-S | Liver Transplant | Vimal Crowe MD | | | 2019 | cheduled | | [address] | | | | | | [facility] [place], | | | | | | [place] [address] | | | | | | [phone] | | | | | | | | +--------+ + + + + | 10/03/ | Appointment | Cardiology | | | | 2019 | | | | | +--------+ + + + + | 10/03/ | Office | Cardiology | Cyril Samuel | | | 2019 | Visit | | MD Patricia [address] | | | | | | [address] | | | | | | [place], [place] | | | | | | [address] | | | | | | [phone] | | | | | | | | +--------+ + + + + documented as of this encounter Visit Diagnoses Not on filedocumented in this encounter"
--- OUTSIDE RECORDS SUMMARY | ~2020-07-29 | XMS | Encounter Summary ---
Demographics + + + | Address | [address] | | | [place] [address] | + + + | Home Phone [...] + + + | Author | [facility] | + + + | Organization | [facility] | + + + | Address | Unknown | + + + | Phone | Unavailable | + + + Support + + + + + | Name | Relationship | Address | Phone | + + + + + | Doreen Manley | ECON | [address] | | | | | [place] | | | | | [address] | | + + + + + Care Team Providers + +------+ + | Care Sourcing Intern Name | Role | Phone | + +------+ + | Sharon David MD | PCP | | + +------+ + Encounter Details +--------+ + + + + | Date | Type | Department | Care Team | Description | +--------+ + + + + | 03/10/ | MyChart | Nephrology & | Alicia Canchola, | Appt next week. | | 2019 | Encounter | [facility] | DO [address] | | | | | [address] | [facility] | | | | | Loop Physician's | [place], [place] | | | | | [address], [address] [place] [address] | [address] | | | | | [place], [place] | [phone] | | | | | [address] | | | | | | [phone] | | | +--------+ + + + [...] | | 2019 | [place] | | [address] | | | | | | [address] | | | | | | [place], [place] | | | | | | [address] | | | | | | [phone] | | | | | | | | +--------+ + + + + | 09/27/ | Telephone-S | Liver Transplant | Vimal Crowe MD | | | 2019 | [place] | | [address] | | | | | | [address], | | | | | | [place] [address] | | | | | | [phone] | | | | | | | | +--------+ + + + + | 10/03/ | Appointment | Cardiology | | | | 2019 | | | | | +--------+ + + + + | 10/03/ | Office | Cardiology | Cyirl Samuel | | | 2019 | Visit | | MD Patricia [address] | | | | | | [address] | | | | | | [place], [place] | | | | | | [address] | | | | | | [phone] | | | | | | | | +--------+ + + + + documented as of this encounter Visit Diagnoses Not on filedocumented in this encounter"
--- OUTSIDE RECORDS SUMMARY | ~2020-07-29 | XMS | Encounter Summary ---
Demographics + + + | Address | [address] | | | [place] [address] | + + + | Home Phone | | + + + | Preferred Language | Unknown | + + + | Marital Status | Single | + + + | Christian Affiliation | NON | + + + [...] | | | | | [place] | | | | | [address] | | + + + + + Care Team Providers + +------+ + | Care Composition Worker Name | Role | Phone | + +------+ + | Sharon David MD | PCP | | + +------+ + Reason for Visit + +--------+ + | Reason | Onset | Comments | | | Date | | + +--------+ + | Prescription | 09/03/ | discharge orders for ferriprox | | | 2019 | | + +--------+ + Encounter Details +--------+ + + + + | Date | Type | Department | Care Team | Description | +--------+ + + + + | 09/03/ | Telephone | [facility] | Tyson Bellamy, | Prescription | | 2019 | | [facility] | MD [address] | (discharge orders | | | | [facility] [address] [place], | for ferriprox ) | | | | [address] [facility] | [place] [address] | | | | | [facility], | [phone] | | | | | [facility] | | | | | | [place], [place] | | | | | | [address] | | | | | | [phone] | | | +--------+ + + + [...] this encounter Miscellaneous Notes Telephone Encounter - Garrison Serra - 09/04/2019 2:33 PM PSTSusan from [facility] calls, re turning call from Nadiya [facility]. Warm-transferred call to Nadiya. Documenting as FYI elephon e Encounter - Madhuri Buckner RN - 09/04/2019 2:[address] Bellamy and he states patient does not need to remain on Ferraprox. Returned call to Pharmacy but although their message states they are open until 7 pm Central time, they were actually closed for . Left message that he does not need to remain on the Ferraprox. elephone Encounter - Katarzyna Graff - 10:21 AM PSTSusan - [facility] Ph.[phone] Fax.[phone] Calling in, per pt' sister Richelle pt is no longer taking ferriprox rx since pt has liver tra nsplant. They are wanting a verbal discharge orders or fax with confirmation that pt is no l onger ferriprox. Routed-RNC documented in this encounter Plan of Treatment +--------+ + + + + | Date | Type | Specialty | Care Team | Description | +--------+ + + + + | 08/08/ | Telephone-S | Nephrology | Angélica Chao, | | | 2019 | [place] | | [address] [facility] | | | | | | [address] | | | | | | [place], [place] | | | | | | [address] | | | | | | [phone] | | | | | | | | +--------+ + + + + | 09/27/ | Telephone-S | Liver Transplant | Vimal Crowe MD | | | 2019 | cheduled | | [address] | | | | | | [address], | | | | | | [place] [address] | | | | | | [phone] | | | | | | | | +--------+ + + + + | 10/03/ | Appointment | Cardiology | | | | 2019 | | | | | +--------+ + + + + | 10/03/ | Office | Cardiology | Cyril Samuel | | | 2020 | Visit | | MD Patricia [address] [facility] | | | | | | [address] | | | | | | [place] | | | | | | [address] | | | | | | [phone] | | | | | | | | +--------+ + + + + documented as of this encounter Visit Diagnoses Not on filedocumented in this encounter"
--- OUTSIDE RECORDS SUMMARY | ~2020-07-29 | XMS | Encounter Summary ---
Demographics + + + | Address | [address] | | | [place] [address] | + + + | Home Phone [...] | Author | [facility] | + + + | Organization | [facility] | + + + | Address | Unknown | + + + | Phone | Unavailable | + + + Support + + + + + | Name | Relationship | Address | Phone | + + + + + | Doreen Manley | ECON | [address] | | | | | [place] | | | | | [address] | | + + + + + Care Team Providers + +------+ + | Care Wastewater Analyst Lab Analyst Name | Role | Phone | + +------+ + | Sharon David MD | PCP | | + +------+ + Encounter Details +--------+ + + + + | Date | Type | Department | Care Team | Description | +--------+ + + + + | 01/27/ | Pharmacy | [facility] | | | | 2020 | Visit | [address] | | | | | | [address] | | | | | | [place] [address] | | | | | | [phone] | | | +--------+ + + + [...] Rd | | | | | | [place], [place] | | | | | | [address] | | | | | | [phone] | | | | | | | | +--------+ + + + + | 09/27/ | Telephone-S | Liver Transplant | Vimal Crowe MD | | | 2019 | cheduled | | [address] | | | | | | [address], | | | | | | [place] [address] | | | | | | [phone] | | | | | | | [address] Rd | | | | | | [place] | | | | | | [address] | | | | | | [phone] | | | | | | | | +--------+ + + + + documented as of this encounter Visit Diagnoses Not on filedocumented in this encounter"
--- OUTSIDE RECORDS SUMMARY | ~2020-07-29 | XMS | Encounter Summary ---
Demographics + + + | Address | [address] | | | [place] [address] | + + + | Home Phone [...] | | | | | [place] | | | | | [address] | | + + + + + Care Team Providers + +------+ + | Care Underwater Roboticist Name | Role | Phone | + +------+ + | Sharon David MD | PCP | | + +------+ + Encounter Details +--------+ + + + + | Date | Type | Department | Care Team | Description | +--------+ + + + + | 11/12/ | Pharmacy | Outpatient Retail | | | | 2019 | Visit | Clinic Pharmacy | | | | | | [address] | | | | | | [place], [place] | | | | | | [address] | | | | | | [phone] | | | +--------+ + + + [...] Rd | | | | | | [place], [place] | | | | | | [address] | | | | | | [phone] | | | | | | | | +--------+ + + + + | 09/27/ | Telephone-S | Liver Transplant | Vimal Crowe MD | | | 2019 | cheduled | | [address] | | | | | | [facility] [place], | | | | | | [place] [address] | | | | | | [phone] | | | | | | | [address] | | | | | | [place], [place] | | | | | | [address] | | | | | | [phone] | | | | | | | | +--------+ + + + + documented as of this encounter Visit Diagnoses Not on filedocumented in this encounter"
--- OUTSIDE RECORDS SUMMARY | ~2020-07-29 | XMS | Encounter Summary ---
Demographics + + + | Address | [address] | | | [place] [address] | + + + | Home Phone [...] + + | Author | [facility] | + + + | Organization | [facility] | + + + | [...] [place] | | | | | [address] | | + + + + + Care Team Providers + +------+ + | Care Solar Mechanical Engineer Name | Role | Phone | + +------+ + | Igncaio Caldwell MD | PCP | | + +------+ + Encounter Details +--------+ + + + + | Date | Type | Department | Care Team | Description | +--------+ + + + + | 04/11/ | Office | [facility] | Note, Outpatient | Progress Note | | 1998 | Visit-Trans | MEDICINE | Clinic | | | | cribed | | | | +--------+ + + [...] documented as of this encounter Progress Notes Interface, Dehydrogenation Converter Operator In - 10/09/2006 3:09 AM PSTCLINIC DATE: 04/11/1999 SUBJECTIVE: Mr. Duran's wound is inspected today. OBJECTIVE: The wound appears to be granulating in from the bottom and is healing adequately at this point. ASSESSMENT/PLANT: I think we need to keep dressing it with packing as we have been doing. This can simply be dry or moist. X-rays are made of Mr. Duran's leg which show adequate AP and lateral alignment. He may be slightly translated laterally. I think this will be adequate as far as position is concerned. I want Mr. Duran to continue to see Dr. Bentley periodically. I will see him back in approximately a month and obtain repeat x-rays to see where we are. As his wound fills in, we will most probably transfer him from the hybrid brace to a patellar tendon bearing cast, but we should wait for this. Rod Velasquez M.D. GUSTAVO/rocky A C: 04/14/99 [facility] [id number] cc: Ignacio Caldwell MD [address] [id number] signed by Interface, Dehydrogenation Converter Operator In at 10/09/2006 3:09 AM PSTdocumented in this encounter Plan of Treatment +--------+ + + + + | Date | Type | Specialty | Care Team | Description | +--------+ + + + + | 08/08/ | Telephone-S | Nephrology | Angélica Chao, | | | 2019 | [place] | | [address] [facility] | | | | | | [address] | | | | | | [place], [place] | | | | | | [address] | | | | | | [phone] | | | | | | | | +--------+ + + + + | 09/27/ | Telephone-S | Liver Transplant | Vimal Crowe MD | | | 2019 | cheduled | | [address] | | | | | | [address] | | | | | | [place] [address] | | | | | | [phone] | | | | | | | [...] Rd | | | | | | [place], [place] | | | | | | [address] | | | | | | [phone] | | | | | | | | +--------+ + + + + documented as of this encounter Visit Diagnoses Not on filedocumented in this encounter"
--- OUTSIDE RECORDS SUMMARY | ~2020-07-29 | XMS | Encounter Summary ---
Demographics + + + | Address | [address] | | | [place] [address] | + + + | Home Phone [...] + + + | Author | [facility] | + + + | Organization | [facility] | + + + | Address | Unknown | + + + | Phone | Unavailable | + + + Support + + + + + | Name | Relationship | Address | Phone | + + + + + | Doreen Manley | ECON | [address] | | | | | [place] | | | | | [address] | | + + + + + Care Team Providers + +------+ + | Care Rag Inspector Name | Role | Phone | + +------+ + | Sharon David MD | PCP | | + +------+ + Reason for Visit +---------+ + | Reason | Comments | +---------+ + | Post Op | | +---------+ + Consultation (Urgent) +--------+--------+ + + + + | Status | Reason | Specialty | Diagnoses / | Referred By | Referred To | | | | | Procedures | Contact | Contact | +--------+--------+ + + + + | Closed | | Infectious | Diagnoses | [place], | [place], | | | | Disease | 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[address] | | | | | liver with | [address] | [facility] | | | | | ascites | [address] | [address] [place], | | | | | (HCC) | [place], [place] | [place] | | | | | Preoperative | [address] | [address] | | | | | examination | Phone: | Phone: | | | | | Internal | [phone] | [phone] | | | | | organ | Fax: | Fax: | | | | | deficiencies | [phone] | [phone] | | | | | Procedures | | | | | | | CONSULT TO | | | | | | | INFECTIOUS | | | | | | | DISEASE | | | +--------+--------+ + + + + Encounter Details +--------+---------+ + + + | Date | Type | Department | Care Team | Description | +--------+---------+ + + + | 10/09/ | Office | Liver Transplant | 3, Ltx | Liver replaced by | | 2018 | Visit | at [facility] [address] | [place], [place] | transplant (HCC) | | | | [address] | [address] | (Primary Dx) | | | | Physician's | | | | | | [address], [address] floor | | | | | | [place], [place] | | | | | | [address] | | | | | | [phone] | | | +--------+---------+ + + + [...] + + + | Blood Pressure | 130/83 | 10/09/2019 8:38 AM | | | | | PST | | + + + + + | Pulse | 80 | 10/09/2019 8:38 AM | | | | | PST | | + + + + + | Temperature | 36.8 C (98.2 F) | 10/09/2019 8:38 AM | | | | | PST | | + + + + + | Respiratory Rate | 14 | 10/09/2019 8:38 AM | | | | | PST | | + + + + + | Oxygen Saturation | 95% | 10/09/2019 8:38 AM | | | | | PST | | + + + + + | Inhaled Oxygen | - | - | | | Concentration | | | | + + + + + | Weight | 80.7 kg (178 lb) | 10/09/2019 8:38 AM | | | | | PST | | + + + + + | Height | 180.3 cm (5' 11") | 10/09/2019 8:38 AM | | | | | PST | | + + + + + | Body Mass Index | 24.83 | 10/09/2019 8:38 AM | | | | | PST | | + + + + + documented in this encounter Functional Status + + + [...] documented as of this encounter Progress Notes Nisreen Chakraborty PA-C - 10/09/2019 10:00 AM PSTFormatting of this note might be different fr om the original. 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 His last run of HD on 09/01. The dialysis catheter was removed on 09/15. On 10/05 he came to the ED for "nausea, vomiting, chills, diarrhea", but denied these sympt oms once he arrived. The past 2 weeks he has had some behaviors of failure to thrive. He was tearful, and stated he doesn't want to eat and just lays in bed all day. He was campbell scanned and worked up for infection which was all negative. He was educated that eating and moving are just as important as medications, and was started on mirtazapine for sleep and mood stim ulant. Today, his mood seems similar to last week and has not made an improvements. His mother say s she will be leaving in 2 weeks because she thinks she is making the situation worse. The p atient admits his mother's "naggin" Is making him retreat more. We rediscussed that if he ca nnot take care of himself at home he will have to have more interventions (feeding tube, adm ission, ect). Not eating, not waling, not taking medications as expected. Plan made with soc ial worker, mother, and patient. Potassium increasing, [facility] labs increase Saturday. Current Outpatient Medications Medication Sig Alcohol Swabs (ALCOHOL PREP SWABS) topical pads, medicated Apply 1 each to affected are a five times daily. Use as directed. amiodarone 200 mg oral tablet Take 1 tablet by mouth once daily. Indications: Preventio n of Ventricular Fibrillation aspirin EC 325 mg oral tablet,delayed release (DR/EC) Take 1 tablet by mouth once daily . atovaquone 750 mg/5 mL oral suspension Take 10 mL by mouth once daily. Blood Sugar Diagnostic (FREESTYLE LITE STRIPS) miscellaneous (misc) strip Test blood abreu gar four times daily (before each meal and at bedtime). Use as directed. Indications: type 2 diabetes mellitus Blood-Glucose Meter (FREESTYLE LITE METER) miscellaneous (misc) kit Use as directed. Us e as directed. calcium carbonate 500 mg elemental (1,250 mg total salt) oral tablet Take 2 tablets by mouth once daily at bedtime. Indications: osteoporosis prevention chlorhexidine 0.12 % mucous membrane mouthwash Use cotton swab to dab chlorhexdine and apply gently to wound. Cholecalciferol (Vitamin D3) 2,000 unit oral tablet Take 1 tablet by mouth once daily. insulin lispro (Human) 100 unit/mL subcutaneous insulin pen Inject 5 units under the sk in with breakfast, 10 units under the skin with lunch, 12 units under the skin with dinner. Max dose = 56 units per day Indications: type 2 diabetes mellitus Insulin [place] (Disposable) (COMFORT EZ PEN NEEDLES) 31 gauge x 5/16" miscellaneous (m isc) needle Use as directed for 5 insulin injections per day. insulin NPH 100 unit/mL (3 mL) subcutaneous insulin pen Inject 18 Units under the skin (SUBC) once daily in the morning AND 8 Units once daily in the evening. Indications: type 2 diabetes mellitus. (Patient taking differently: Inject 17 Units under the skin (SUBC) once d aily in the morning AND 7 Units once daily in the evening. Indications: type 2 diabetes isela itus.) lancets (FREESTYLE LANCETS) 28 gauge miscellaneous (misc) misc Test blood sugar four ti mes daily (before each meal and at bedtime). Indications: type 2 diabetes mellitus magnesium oxide 250 mg elemental oral tablet Take 2 tablets by mouth two times daily. metoprolol succinate 25 mg oral tablet extended release 24 hr Take 0.5 tablets by mouth once daily. Indications: high blood pressure mirtazapine 15 mg oral tablet Take 1 tablet by mouth once daily in the evening for 14 d ays. Indications: lack of appetite Miscellaneous Medical Supply miscellaneous (misc) misc Chlorhexidine prep sticks (small ) multivitamin oral tablet Take 1 tablet by mouth once daily. Indications: Treatment To P revent Vitamin Deficiency mycophenolate 250 mg oral capsule Take 4 capsules by mouth two times daily. Indications : liver transplant rejection prevention omeprazole 20 mg oral capsule,delayed release(DR/EC) Take 1 capsule by mouth once daily . Indications: heartburn predniSONE 5 mg oral tablet Take 1 tablet by mouth once daily. Indications: liver trans plant rejection prevention sodium polystyrene 15-20 gram/60 mL oral suspension Take 60 mL by mouth once daily for 2 days if needed. tacrolimus 1 mg oral capsule Take 2 capsules by mouth two times daily. Indications: niels er transplant rejection prevention trimethoprim-sulfamethoxazole 80-400 mg oral tablet Take 1 tablet by mouth once daily. Indications: pneumonia prevention valGANciclovir 450 mg oral tablet Take 1 tablet by mouth three times weekly (on Saturday, Saturday and Saturday). Indications: viral infection prevention No current facility-administered medications for this visit. Physical: VITALS: BP 130/83 (BP Location: Left upper arm, Patient Position: Sitting) | Pulse 80 | T emp 36.8 C (98.2 F) (Oral) | Resp 14 | Ht 1.803 m (5' 11") | Wt 80.7 kg (178 lb) | S pO2 95% | BMI 24.83 kg/m | BSA 2.01 m GENERAL: Alert, no acute distress, well kempt. HEENT: no scleral icterus, no oral plaques or ulcers NECK: no lymphadenopathy CV: regular rate and rhythm, no murmurs and rubs or gallops RESP: normal work of breathing on room air, clear ABD: soft, non-tender, well healed abdominal incisions without hernias. Hematoma small and unchanged since Ed visit Ext: trace edema Neuro: despondent, would not make eye contact Labs: Chemistries: Last 72 Hours (or 3 results): No results for input(s): NA, K, CL, BICARB, BUN, CR, CA, MG, PO4, AST, ALT, TBILI, AP, ALB, TP in the last 72 hours. CBC with diff last 72 hours (or 3 results) No results for input(s): WBC, HB, HCT, PLT, NEUTROPERC, LYMPHPERC, MONOPERC, BASOPERC, EOSP ERC in the last 72 hours. Invalid input(s): BANDPCT Lab Results Component Value Date FK506 6.0 10/09/2019 Assessment: Steffen Duran is a 54 year old male who continues to recover following liver transpl antation. His prograf level is within the target range. Plan: Immunosuppression: I personally participated in the immunosuppression and prophylaxis manag ement with with patient. Tacrolimus 2 mg po bid, MMF po daily, and continue Prednisone taper . Prophylaxis: Valcyte 450 mg po daily, Fluconazole 400 mg po q Saturday, Atovaquone daily Diabetes: Insulin 06/05. Blood sugar okay on labs today but not checking at home. Just takin g am and HS not doing SSI Hypertension: in good control, continue current medications (metoprolol) Osteoporosis: continue supplemental calcium with vitamin D and plan for a bone scan at 6 mo nths post transplant Hypomagnesemia: continue supplemental magnesium replacement Fluid status: stable, off diuretics Renal: worsening, monitor and push fluids. Liver: stable graft funciton - no intervention necessary Wound: healing well Labs: 2 times per week Activity: Continue to increase activity as tolerated. Goal is 30-45 minutes per day. Contin ue 10 pound lifting restriction and hernia precuations. Return to clinic: 1 week with surgeon Authored By: Nisreen Chakraborty PA-C Abdominal Organ Transplant SurgeryElectronically signed by Nisreen Chakraborty PA-C at 9 1:24 PM PSTdocumented in this encounter Plan of Treatment +--------+ + + + + | Date | Type | Specialty | Care Team | Description | +--------+ + + + + | 08/08/ | Telephone-S | Nephrology | Angélica Chao, | | | 2019 | cheduled | | [address] | | | | | | [address] | | | | | | [place], [place] | | | | | | [address] | | | | | | [phone] | | | | | | | | +--------+ + + + + | 09/27/ | Telephone-S | Liver Transplant | Vimal Crowe MD | | | 2019 | [place] | | [address] | | | | | | [address], | | | | | | [place] [address] | | | | | | [phone] | | | | | | | [...] Rd | | | | | | [place], [place] | | | | | | [address] | | | | | | [phone] | | | | | | | | +--------+ + + + + documented as of this encounter Visit Diagnoses + + | Diagnosis | + + | Liver replaced by transplant (HCC) - Primary Liver replaced by transplant | + + documented in this encounter
--- OUTSIDE RECORDS SUMMARY | ~2020-07-29 | XMS | Encounter Summary ---
Demographics + + + | Address | [address] | | | [place] [address] | + + + | Home Phone [...] Author + + + | Author | [facility] | + + + | Organization | [facility] | + + + | Address | Unknown | + + + | Phone | Unavailable | + + + Support + + + + + | Name | Relationship | Address | Phone | + + + + + | Doreen Manley | ECON | [address] | | | | | [place] | | | | | [address] | | + + + + + Care Team Providers + +------+ + | Care New Accounts Clerk Name | Role | Phone | + +------+ + | Sharon David MD | PCP | | + +------+ + Encounter Details +--------+ + + + + | Date | Type | Department | Care Team | Description | +--------+ + + + + | 07/07/ | Pharmacy | [facility] | | | | 2019 | Visit | [facility] | | | | | | [address] | | | | | | Mailcode: [place] | | | | | | [facility] | | | | | | [facility], [address] | | | | | | [place], [place] | | | | | | [address] | | | | | | [phone] | | | +--------+ + + + [...] Rd | | | | | | [place], [place] | | | | | | [address] | | | | | | [phone] | | | | | | | | +--------+ + + + + | 09/27/ | Telephone-S | Liver Transplant | Vimal Crowe MD | | | 2019 | [place] | | [address] | | | | | | [address], | | | | | | [place] [address] | | | | | | [phone] | | | | | | | [...] Rd | | | | | | [place], [place] | | | | | | [address] | | | | | | [phone] | | | | | | | | +--------+ + + + + documented as of this encounter Visit Diagnoses Not on filedocumented in this encounter"
--- OUTSIDE RECORDS SUMMARY | ~2020-07-29 | XMS | Encounter Summary ---
Demographics + + + | Address | [address] | | | [place] [address] | + + + | Home Phone [...] Author + + + | Author | [facility] | + + + | Organization | [facility] | + + + | Address | Unknown | + + + | Phone | Unavailable | + + + Support + + + + + | Name | Relationship | Address | Phone | + + + + + | Doreen Manley | ECON | [address] | | | | | [place] | | | | | [address] | | + + + + + Care Team Providers + +------+ + | Care Senior Systems Administrator Name | Role | Phone | + +------+ + | Sharon David MD | PCP | | + +------+ + Reason for Visit + +--------+ + | Reason | Onset | Comments | | | Date | | + +--------+ + | Medication Questions | 07/07/ | | | | 2019 | | + +--------+ + Encounter Details +--------+ + + + + | Date | Type | Department | Care Team | Description | +--------+ + + + + | 07/07/ | Telephone | [facility] | Tyson Bellamy, | Medication Questions | | 2019 | | Clinics at S | MD [address] | | | | | [place] [address] [place], | | | | | [place] [address] [facility] | [place] [address] | | | | | [facility], | [phone] | | | | | [facility] | | | | | | [place], [place] | | | | | | [address] | | | | | | [phone] | | | +--------+ + + + [...] this encounter Miscellaneous Notes Telephone Encounter - AlygeorgetteCharuClaudia - 07/07/2019 9:40 AM PDTTeam Coordinator Docum entation: [facility] is working on the PA for 1,000mg so that the patient can get it filled at the speciality clinic. Please see information in 06/24 encounter. elephone Encounter - Anshul Taylor RN - 07/07/2019 9:24 AM PDTFormatting of this note might be different fr om the original. --> PER REVIEW OF EPIC: Current script: Order Transmittal Info Date and Time Department Ordering/Authorizing 05/18/2019 5:04 PM Hematology/Medical Oncology at [facility] Tyson dickens MD Outpatient Medication Detail Disp Refills deferiprone 500 mg oral tablet 360 tablet 3 Sig: Take 4 tablets (2,000mg) by mouth three times daily. Patient not taking: Reported on 07/06/2019 Sent to pharmacy as: deferiprone 500 mg tablet Class: eRx Notes to Pharmacy: Please mail to patient. Thank you. --> RX RED: Please assist with forwarding script. elephone Encounter - Garrison Serra - 07/07/2019 9:14 AM PDTRyan calls from the [facility], regarding this patient's prescription for Ferriprox from Dr. Bellamy. States that they cannot order t his drug - it needs to be ordered directly from [facility]. Patient has been notif ied that his prescription won't be filled here at [facility]. [facility] has a specific order form on their website that needs to be used. [email or web address] [facility]'s contact info: Liseth. , open 7AM to 6PM Central Time Fax Routing to [facility] and Hollie cornelius in this encounter Plan of Treatment +--------+ + + + + | Date | Type | Specialty | Care Team | Description | +--------+ + + + + | 08/08/ | Telephone-S | Nephrology | Angélica Chao, | | | 2019 | [place] | | [address] | | | | | | [address] | | | | | | [place], [place] | | | | | | [address] | | | | | | [phone] | | | | | | | | +--------+ + + + + | 09/27/ | Telephone-S | Liver Transplant | Vimal Crowe MD | | | 2019 | [place] | | [address] | | | | | | [address], | | | | | | [place] [address] | | | | | | [phone] | | | | | | | [...] [place] | | | | | | [address] | | | | | | [phone] | | | | | | | | +--------+ + + + + documented as of this encounter Visit Diagnoses Not on filedocumented in this encounter"
--- OUTSIDE RECORDS SUMMARY | ~2020-07-29 | XMS | Encounter Summary ---
Demographics + + + | Address | [address] | | | [place] [address] | + + + | Home Phone | | + + + | Preferred Language | Unknown | + + + | Marital Status | Single | + + + | Roman Catholic Affiliation | NON | + + [...] | | | | | [place] | | | | | [address] | | + + + + + Care Team Providers + +------+ + | Care Veterinary Inspector Name | Role | Phone | + +------+ + | Sharon David MD | PCP | | + +------+ + Encounter Details +--------+ + + + + | Date | Type | Department | Care Team | Description | +--------+ + + + + | 10/27/ | Pharmacy | Outpatient Retail | | | | 2019 | Visit | [facility]acy | | | | | | [address] | | | | | | [place], [place] | | | | | | [address] | | | | | | [phone] | | | +--------+ + + + [...] Rd | | | | | | [place], [place] | | | | | | [address] | | | | | | [phone] | | | | | | | | +--------+ + + + + | 09/27/ | Telephone-S | Liver Transplant | Vimal Crowe MD | | | 2019 | cheduled | | [address] | | | | | | [facility] [place], | | | | | | [place] [address] | | | | | | [phone] | | | | | | | [...] Rd | | | | | | [place], [place] | | | | | | [address] | | | | | | [phone] | | | | | | | | +--------+ + + + + documented as of this encounter Visit Diagnoses Not on filedocumented in this encounter"
--- OUTSIDE RECORDS SUMMARY | ~2020-07-29 | XMS | Encounter Summary ---
Demographics + + + | Address | [address] | | | [place] [address] | + + + | Home Phone | | + + + | Preferred Language | Unknown | + + + | Marital Status | Single | + + + | Anabaptist Affiliation | NON | + + + [...] [place] | | | | | [address] | | + + + + + Care Team Providers + +------+ + | Care Eyelet Cutter Name | Role | Phone | + +------+ + | Sharon David MD | PCP | | + +------+ + Reason for Visit +--------+--------+ + | Reason | Onset | Comments | | | Date | | +--------+--------+ + | Other | 05/13/ | Phone Visit Requested, Pre-Check In Completed | | | 2020 | | +--------+--------+ + Encounter Details +--------+ + + + + | Date | Type | Department | Care Team | Description | +--------+ + + + + | 05/13/ | MyChart | Nephrology & | Angélica Chao, | | | 2020 | Encounter | [facility] at [facility] | MD [address] | | | | | [address] | [address] | | | | | Loop [facility] | [place], [place] | | | | | [address], [address] [place] [address] | [address] | | | | | [place], [place] | [phone] | | | | | [address] | | | | | | [phone] | | | +--------+ + + + [...] this encounter Miscellaneous Notes Telephone Encounter - Kena Domínguez MA - 05/13/2020 2:26 PM PDTSpoke with patient. Ahsan jeannette to change VV to a Phone appointment with Dr. Chao on 05.16.20 at 4:00 PM. Unable to set up/access My Chart or the [employer] erinn. Patient states: "My sister who lives in [place] checks the My Chart for me and I do not want t o download the [employer] erinn or the [employer] erinn onto my phone. I would like a phone visit instead. T hat has worked out best so far." Pre-Check In Complete. Reviewed Allergies, Medications and confirmed Preferred Pharmacy. Best contact phone: [phone] Routing request to the [facility] Scheduling Pool and Dr. Chao to complete the appointment change . Kena Domínguez MA documented in this encou nter Plan of Treatment +--------+ + + + + | Date | Type | Specialty | Care Team | Description | +--------+ + + + + | 08/08/ | Telephone-S | Nephrology | Angélica Chao, | | 2019 | cheduled | | [address] [facility] [address] | | | | | | [address] | | | | | | [place], [place] | | | | | | [address] | | | | | | [phone] | | | | | | | | +--------+ + + + + | 09/27/ | Telephone-S | Liver Transplant | Vimal Crowe MD | | | 2019 | [place] | | [address] | | | | | | [address], | | | | | | [place] [address] | | | | | | [phone] | | | | | | | [...] Rd | | | | | | [place], [place] | | | | | | [address] | | | | | | [phone] | | | | | | | | +--------+ + + + + documented as of this encounter Visit Diagnoses Not on filedocumented in this encounter
--- OUTSIDE RECORDS SUMMARY | ~2020-07-29 | XMS | Encounter Summary ---
Demographics + + + | Address | [address] | | | [place] [address] | + + + | Home Phone | | + + + | Preferred Language | Unknown | + + + | Marital Status | Single | + + + | Yazidism Affiliation | NON | + + + | Race | White | + + + | Ethnic Group | Not or | + + + Author + + + | Author | [facility] | + + + | Organization | [facility] | + + + | Address | Unknown | + + + | Phone | Unavailable | + + + Support + + + + + | Name | Relationship | Address | Phone | + + + + + | Doreen Manley | ECON | [address] | | | | | [place] | | | | | [address] | | + + + + + Care Team Providers + +------+ + | Care Timber Hand Name | Role | Phone | + +------+ + | Sharon David MD | PCP | | + +------+ + Encounter Details +--------+ + + + + | Date | Type | Department | Care Team | Description | +--------+ + + + + | 08/03/ | Anesthesia | [address] | Juancarlos Mckinley, | | | 2019 | Event | [address] | [address] | | | | | [facility] | [address] | | | | | [place], [place] | [place], [place] | | | | | [address] | [address] | | | | | [phone] | [phone] | | | | | | | | +--------+ + + + + Anesthesia Record + + + + + | Procedure Name | Responsible | Anesthesia Start | Anesthesia Stop Time | | | Anesthesiologist | Time | | + + + + + | ANESTHESIA CONSULT | | | | + + + + + + + | No events on file. | + + +------+ | Meds | +------+ + + + No medications | on file. | + + + + + | No agents on file. | + + + + | No blood administrations on file. | + + + + | No LDAs on file. | + + documented in this encounter Social History + +-------+ +--------+------+ | Tobacco [...] documented as of this encounter Miscellaneous Notes Ane Consult - Juancarlos Mckinley MD - 08/03/2019 1:20 PM PDTFormatting of this note might b e different from the original. ANESTHESIOLOGY CONSULT NOTE Consulting Provider: Juancarlos Mckinley MD Referring Physician: Farooq Weeks Reason for Consult: Preoperative evaluation and risk assessment Proposed Procedure/Date: TBD HISTORY OF PRESENT ILLNESS: Steffen Duran is a 54 y.o. male here for preoperative ev aluation for liver transplantation. Estimated ASA class: 4 Assessment and Recommendations Anesthesia consult for Mr. 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 Mr. Duran has had recurrent atrial arrhythmias including afib RVR and a-tach vs aflutter/SVT. At dobutamine stress test screen for transplant clearance, developed SVT requiring adenosin e to break, and was started on metoprolol afterwards. As an inpatient during this hospitaliz ation, he developed wide complex tachycardia with RBBB (baseline EKG with RBBB) thought to b e SVT that did not respond to vagal maneuvers/carotid massage, spontaneously converted back to NSR; BPs went from 80-100 systolic to 80s/50s during arrhythmia, but was asymptomatic oth erwise. Later, patient again became tachycardic to rates ~150-180, thought to be regular, un responisve to escalating doses of adenosine, then noted to be irregular; BPS went into 70-80 /40-50s, but patient reportedly was still asymptomatic. Mr. Duran was seen by both cardiolog y and EP, who could not definitively discern arrhythmia source without invasive studies. He was given an amiodarone load and is now on 200mg amiodarone daily; he was also re-started on metoprolol (had been briefly stopped with worsening arrhythmia effects, with a goal metop d ose of 50mg, currently on 12.5mg total daily). Mr. Duran has not had any recurrence of susta ined arrhythmias since achieving stable dosing of amiodarone and consistent metoprolol, but frequent PVCs appreciated. Despite stability on amiodarone dosing, from an anesthetic/liver transplant perspective, am iodarone poses a significant challenge to hemodynamic management. Specifically, hyperkalemia may induce unstable arrhythmias in the setting of amiodarone therapy; additionally, amiodar one contributes additional hypotension risks. However, after re-engaging cardiology for cons ideration of alternative medications, it was determined that any alternative rhythm control agents would convey higher risk to Mr. Duran and, further, that the evidence for proarrhythm ia effects of amiodarone are not clear, and are likely more related to the transient hyperka lemia regardless of the presence of amiodarone. Because strict potassium control will be necessary intra-operatively, if urinary output dec reases or potassium levels become difficult to maintain ~4meq/L, would recommend CRRT intra- op. Recommendations: - per cardiology consultation, continue amiodarone - consider CRRT intra-op if potassium is difficult to control on the floor or if urine outp ut decreases, even if not at ESRD levels - aggressive potassium monitoring and magnesium replacement intra-operatively. - anticipate significant arrhythmias intra-op even under ideal circumstances. Dobutamine st ress echo was enough to trigger brief arrhythmias. Fortunately Mr. Duran has tolerated arrhy thmias well so far, but given the disturbances that occur during liver transplantation, rapi d cardioversion/defibrillation should be anticipated. Thank you for the opportunity to contribute to this patient's care. ROS/PE: ROS/PE Note No note exists Current Medication List Name Sig DEFERIPRONE 500 MG TABLET Take 4 tablets (2,000mg) by mouth three times daily. FUROSEMIDE 20 MG TABLET Take 2 tablets by mouth two times daily. LACTULOSE 10 GRAM/15 ML ORAL SOLUTION Take 15 mL by mouth two times daily. METOPROLOL SUCCINATE ER 50 MG TABLET,EXTENDED RELEASE 24 HR Take 0.5 tablets by mouth once daily. SPIRONOLACTONE 100 MG TABLET Take 1 tablet by mouth once daily. Allergies Allergen Reactions Doxycycline Hives and Rash Past Medical History Diagnosis Date Cirrhosis (HCC) CKD (chronic kidney disease) Past Surgical History Procedure Date Leg surgery Family History Problem Relation Liver cancer Neg Hx Social History Tobacco Use Smoking status: Never Smoker Smokeless tobacco: Former User Types: Chew Substance Use Topics Alcohol use: No Frequency: Never Drug use: No Last Vitals: BP 118/52 | Pulse 82 | Temp 37 C (98.6 F) (Oral) | Resp 16 | Ht 1.803 m (5' 11") | Wt 81.6 kg (180 lb) | SpO2 100% | BMI 25.10 kg/m | BSA 2.02 m Body mas s index is 25.1 kg/m. LAB DATA REVIEWED/ORDERED Lab Results Component Value Date WBC 4.69 08/02/2019 HB 7.3 08/02/2019 HCT 21.7 08/02/2019 PLT 30 08/02/2019 MCV 97.7 08/02/2019 RDW 62.3 08/02/2019 Lab Results Component Value Date NA 130 08/03/2019 K 4.4 08/03/2019 CL 101 08/03/2019 BICARB 21 08/03/2019 BUN 53 08/03/2019 CR 1.20 08/03/2019 GLU 239 08/03/2019 CA 8.6 08/03/2019 AST 95 08/02/2019 ALT 56 08/02/2019 AP 146 08/02/2019 TBILI 9.4 08/02/2019 TP 6.3 08/02/2019 ALB 2.9 08/02/2019 Lab Results Component Value Date ABO A 07/27/2019 RH Positive 07/27/2019 Lab Results Component Value Date A1C 8.1 07/17/2019 TTE: 06/2019: Final Impressions: 1. The left ventricular size is normal. 2. The LV function is normal. 3. The aortic valve is trileaflet and moderately calcified. Mildly elevated aortic valve gradients in the setting of high stroke volume. Calculated aortic valve area is normal today. 4. RV cavity size is mildly enlarged. RV wall thickness is normal. RV global systolic function is normal. The estimated right ventricular systolic pressure is mildly elevated (RVSP = 40.9 mmHg). 5. Compared to the most recent exam dated 04/21/2019, there are no significant changes. Stress Echo: 04/2019 Final Impressions: 1. At baseline left ventricular systolic function is normal. 2. There were no ischemic ECG changes during stress. There were frequent PAC during stress and two sustained runs of SVT during recovery. 3. At peak stress the LV function augments normally (See comments below). 4. Echo negative for ischemia. 5. Low risk dobutamine stress echo with > 85% age predicted maximal heart rate. EKG: Personally reviewed, baseline with RBBB Juancarlos Mckinley MD [facility] INPATIENT REV LOC [address] [facility] [address] documented in this e ncounter Plan of Treatment +--------+ + + + + | Date | Type | Specialty | Care Team | Description | +--------+ + + + + | 08/08/ | Telephone-S | Nephrology | Angélica Chao, | | | 2019 | [place] | | [address] | | | | | | [address] | | | | | | [place], [place] | | | | | | [address] | | | | | | [phone] | | | | | | | | +--------+ + + + + | 09/27/ | Telephone-S | Liver Transplant | Vimal Crowe MD | | | 2019 | [place] | | [address] | | | | | | [address], | | | | | | [place] [address] | | | | | | [phone] | | | | | | | [...] [address] | | | | | | [place] | | | | | | [address] | | | | | | [phone] | | | | | | | | +--------+ + + + + documented as of this encounter Visit Diagnoses Not on filedocumented in this encounter
--- OUTSIDE RECORDS SUMMARY | ~2020-07-29 | XMS | Encounter Summary ---
Demographics + + + | Address | [address] | | | [place] [address] | + + + | Home Phone [...] | | | | | [address] | | | | | [address] | | + + + + + Care Team Providers + +------+ + | Care Web Applications Programmer Name | Role | Phone | + +------+ + | Sharon David MD | PCP | | + +------+ + Encounter Details +--------+------+ + + + | Date | Type | Department | Care Team | Description | +--------+------+ + + + | 10/09/ | Lab | [facility] at [facility] | | Liver transplant | | 2019 | | [address] | | status (HCC); Liver | | | | Loop Physician's | | replaced by | | | | [place], 3rd floor | | transplant (HCC) | | | | [place], [place] | | | | | | [address] | | | | | | [phone] | | | +--------+------+ + + + Social History + +-------+ [...] | 2019 | [place] | | [address] [facility] [address] | | | | | | [address] | | | | | | [place], [place] | | | | | | [address] | | | | | | [phone] | | | | | | | | +--------+ + + + + | 09/27/ | Telephone-S | Liver Transplant | Vimal Crowe MD | | | 2019 | [place] | | [address] | | | | | | [address], | | | | | | [place] [address] | | | | | | [phone] | | | | | | | [...] [address] | | | | | | [place], [place] | | | | | | [address] | | | | | | [phone] | | | | | | | | +--------+ + + + + documented as of this encounter Procedures + +--------+ + + + | Procedure Name | Priori | Date/Time | Associated Diagnosis | Comments | | | ty | | | | + +--------+ + + + | PHOSPHATIDYLETHANOL | Routin | 10/09/2019 | Liver replaced by | Results for this | | (PETH) | e | 8:12 AM | transplant (HCC) | procedure are in the | | | | PST | | results section. | + +--------+ + + + | ETHYL GLUCURONIDE | Routin | 10/09/2019 | Liver replaced by | Results for this | | QUANT, URINE | e | 8:12 AM | transplant (HCC) | procedure are in the | | | | PST | | results section. | + +--------+ + + + | CBC AND AUTO DIFF | Routin | 10/09/2019 | Liver transplant | Results for this | | | e | 8:12 AM | status (HCC) | procedure are in the | | | | PST | | results section. | + +--------+ + + + | CBC, WITH | Routin | 10/09/2019 | Liver transplant | Results for this | | DIFFERENTIAL | e | 8:12 AM | status (HCC) | procedure are in the | | | | PST | | results section. | + +--------+ + + + | COMPLETE METABOLIC | Routin | 10/09/2019 | Liver transplant | Results for this | | SET | e | 8:12 AM | status (HCC) | procedure are in the | | (NA,K,CL,CO2,BUN,CRE | | PST | | results section. | | AT,GLUC,CA,AST,ALT,B | | | | | | KEV TOTAL,ALK | | | | | | PHOS,ALB,PROT TOTAL) | | | | | + +--------+ + + + | TACROLIMUS, WHOLE | Routin | 10/09/2019 | Liver transplant | Results for this | | BLOOD | e | 8:12 AM | status (HCC) | procedure are in the | | | | PST | | results section. | + +--------+ + + + | PHOSPHORUS, PLASMA | Routin | 10/09/2019 | Liver transplant | Results for this | | | e | 8:12 AM | status (HCC) | procedure are in the | | | | PST | | results section. | + +--------+ + + + | BILIRUBIN DIRECT | Routin | 10/09/2019 | Liver transplant | Results for this | | | e | 8:12 AM | status (HCC) | procedure are in the | | | | PST | | results section. | + +--------+ + + + | URIC ACID, PLASMA | Routin | 10/09/2019 | Liver transplant | Results for this | | | e | 8:12 AM | status (HCC) | procedure are in the | | | | PST | | results section. | + +--------+ + + + | MAGNESIUM, PLASMA | Routin | 10/09/2019 | Liver transplant | Results for this | | | e | 8:12 AM | status (HCC) | procedure are in the | | | | PST | | results section. | + +--------+ + + + documented in this encounter Results CBC AND AUTO DIFF (10/09/2019 8:12 AM PST) + + + + + + | Component | Value | Ref Range | Performed | Pathologist | | | | | At | Signature | + + + + + + | WHITE CELL | 6.12 | 3.50 - 10.80 | [facility] | | | COUNT | | K/cu mm | LABORATORY | | | | | | SERVICES, | | | | | | CORE | | + + + + + + | RED CELL | 3.60 (L) | 4.50 - 6.00 | [facility] | | | COUNT | | M/cu mm | LABORATORY | | | | | | SERVICES, | | | | | | CORE | | + + + + + + | HEMOGLOBIN | 10.6 (L) | 13.5 - 17.5 | [facility] | | | | | g/dL | LABORATORY | | | | | | SERVICES, | | | | | | CORE | | + + + + + + | HEMATOCRIT | 33.4 (L) | 41.0 - 53.0 % | [facility] | | | | | | LABORATORY | | | | | | SERVICES, | | | | | | CORE | | + + + + + + | MCV | 92.8 | 80.0 - 100.0 fL | [facility] | | | | | | LABORATORY | | | | | | SERVICES, | | | | | | CORE | | + + + + + + | MCHC | 31.7 (L) | 32.0 - 36.0 | [facility] | | | | | g/dL | LABORATORY | | | | | | SERVICES, | | | | | | CORE | | + + + + + + | RDW SD | 49.2 (H) | 35.1 - 46.3 fL | [facility] | | | | | | LABORATORY | | | | | | SERVICES, | | | | | | CORE | | + + + + + + | PLATELET | 105 (L) | 150 - 400 K/cu | [facility] | | | COUNT | | mm | LABORATORY | | | | | | SERVICES, | | | | | | CORE | | + + + + + + | MPV | 11.1 | 9.7 - 12.3 fL | [facility] [...] + + + + | NEUTROPHIL | 73.2 (H) | 50.0 - 70.0 % | [facility] | | | % | | | LABORATORY | | | | | | SERVICES, | | | | | | CORE | | + + + + + + | LYMPHOCYTE | 20.9 | 18.0 - 42.0 % | [facility] | | | % | | | LABORATORY | | | | | | SERVICES, | | | | | | CORE | | + + + + + + | MONOCYTE % | 3.8 | 3.5 - 9.0 % | [facility] | | | | | | LABORATORY | | | | | | SERVICES, | | | | | | CORE | | + + + + + + | EOS % | 1.1 | 1.0 - 3.0 % | [facility] | | | | | | LABORATORY | | | | | | SERVICES, | | | | | | CORE | | + + + + + + | BASO % | 0.7 | 0.0 - 2.0 % | [facility] | | | | | | LABORATORY | | | | | | SERVICES, | | | | | | CORE | | + + + + + + | IG% | 0.3 | 0.0 - 1.0 % | [facility] | | | | | | LABORATORY | | | | | | SERVICES, | | | | | | CORE | | + + + + + + | NEUTROPHIL | 4.48 | 1.80 - 7.70 | [facility] | | | # | | K/cu mm | LABORATORY | | | | | | SERVICES, | | | | | | CORE | | + + + + + + | LYMPHOCYTE | 1.28 | 1.00 - 4.80 | [facility] | | | # | | K/cu mm | LABORATORY | | | | | | SERVICES, | | | | | | CORE | | + + + + + + | MONOCYTE # | 0.23 | 0.10 - 0.90 | [facility] | | | | | K/cu mm | LABORATORY | | | | | | SERVICES, | | | | | | CORE | | + + + + + + | EOS # | 0.07 | 0.00 - 0.50 | [facility] | | | | | K/cu mm | LABORATORY | | | | | | SERVICES, | | | | | | CORE | | + + + + + + | BASO # | 0.04 | 0.00 - 0.10 | [facility] | | | | | K/cu mm | LABORATORY | | | | | | SERVICES, | | | | | | CORE | | + + + + + + | IG# | 0.02 | 0.00 - 0.10 | [facility] | [...] the IG count. Bands are | SERVICES, CORE | | included in the neutrophil count. | | + + + + + + + + | Performing | Address | City/State/Zipcode | Phone Number | | Organization | | | | + + + + + | [facility] | [address] | [place] [address] | | | SERVICES, CORE | [address] | | | + + + + + PHOSPHATIDYLETHANOL (PETH) (10/09/2019 8:12 AM PST) + + + + + + | Component | Value | Ref Range | Performed | Pathologist | | | | | At | Signature | + + + + + + | PHOSPHATIDY | NEGATIVEComment: | NEGATIVE ng/mL | [facility] | | | LETHANOL | Analyzed compound: PEth | | REG UNIV | | | (PETH) | 16:0/18:1.2-htwwxptmu-0- | | PTH - INT[facility] | | | | nofeuj-mx-ctbvifl-3-phos | | | | | | phoethanol.Analysis | | | | | | performed by Liquid | | | | | | Chromatography | | | | | | withTandem Mass | | | | | | Spectrometry | | | | | | (LC/MS/MS).Detection | | | | | | limit: 20 ng/mLPEth | | | | | | levels in excess of 20 | | | | | | ng/mL are considered | | | | | | evidenceof moderate to | | | | | | heavy ethanol | | | | | | consumption. | | | | | | However,the Center for | | | | | | Substance Abuse | | | | | | Treatment (CSAT) | | | | | | advisescaution in | | | | | | interpretation and use | | | | | | of biomarkers aloneto | | | | | | assess alcohol use. | | | | | | Results should be | | | | | | interpretedin the | | | | | | context of all available | | | | | | clinical and | | | | | | behavioralinformation.Re | | | | | | ference: Substance | | | | | | Abuse and Mental Health | | | | | | ServicesAdministration | | | | | | (2011). "The Role of | | | | | | Biomarkers in | | | | | | theTreatment of Alcohol | | | | | | Use Disorders", 2012 | | | | | | Revision.Advisory, | | | | | | Volume 11, Issue 2.This | | | | | | test was developed and | | | | | | its performance | | | | | | characteristicsdetermine | | | | | | d by [employer]. It has not | | | | | | been cleared or | | | | | | approvedby the Food and | | | | | | Drug | | | | | | Administration.Performed | | | | | | at: [facility] [address] | | | | | | [facility] [address] | | | | | | [place] [address] | | | | + + + + + + + + | Specimen | + + | Blood - Blood | | (substance) | + + + + + + + | Performing | Address | City/State/Zipcode | Phone Number | | Organization | | | | + + + + + | [facility] | [address] | [place], [place] | | | UNIV PTH - INT[facility] | | [address] | | + + + + + ETHYL GLUCURONIDE QUANT, URINE (10/09/2019 8:12 AM PST) + + + + + + | Component | Value | Ref Range | Performed | Pathologist | | | | | At | Signature | + + + + + + | ETHYL | <100 | ng/mL | [facility] | | | GLUCURONIDE | | | REG UNIV | | | , URINE, | | | PTH - INT[facility] | | | CONFIRM | | | | | + + + + + + | ETHYL | <100Comment: | ng/mL | [facility] | | | SULFATE, | INTERPRETIVE | | REG UNIV | | | URINE | INFORMATION: Ethyl | | PTH - INT[facility] | | | CONFIRMATIO | Glucuronide and Ethyl | | | | | N | Sulfate, | | | | | | | | | | | | Urine Quantitative | | | | | | Ethyl glucuronide (EtG) | | | | | | and Ethyl Sulfate (EtS) | | | | | | are direct metabolites | | | | | | of ethanol. EtG and EtS | | | | | | can be detected up to 80 | | | | | | hours in urine after | | | | | | ethanol ingestion and | | | | | | the presence of both | | | | | | metabolites can be used | | | | | | as markers for recent | | | | | | alcohol use. The | | | | | | presence of EtG, alone | | | | | | in urine, is not a | | | | | | unique marker of ethanol | | | | | | ingestion. False | | | | | | positive EtG results can | | | | | | occur from microbial | | | | | | formation or from | | | | | | fermentation and false | | | | | | negative EtG results can | | | | | | occur from bacterial | | | | | | degradation. The | | | | | | analytical measurement | | | | | | range is 100-10,000 | | | | | | ng/mL. Test developed | | | | | | and characteristics | | | | | | determined by [facility] | | | | | | [facility]. See | | | | | | Compliance Statement B: | | | | | | [employer]/CSPerformed | | | | | | by [address],[address] | | | | | | [address] [facility] [place] | | | | | | [address] | | | | | | [phone].[facility]. | | | | | | [facility] MD, | | | | | | Lab. Director | | | | + + + + + + + + | Specimen | + + | Urine | + + + + + + + | Performing | Address | City/State/Zipcode | Phone Number | | Organization | | | | + + + + + | [facility] | [address] | [place], [place] | | | UNIV PTH - INT[facility] | | [address] | | + + + + + URIC ACID, PLASMA (10/09/2019 8:12 AM PST) + + + + + + | Component | Value | Ref Range | Performed | Pathologist | | | | | At | Signature | + + + + + + | URIC ACID, | 10.0 (H) | 3.7 - 8.0 mg/dL | [facility] | | | PLASMA [...] | + + + + + | [facility] | [address] | [place] [address] | | | CLAUDIA, ARTIS | [address] | | | + + + + + TACROLIMUS, WHOLE BLOOD (10/09/2019 8:12 AM PST) + +-------+ + + + | Component | Value | Ref Range | Performed | Pathologist | | | | | At | Signature | + +-------+ + + + | TACROLIMUS | 6.0 | 5.0 - 15.0 | [facility] | | | ([address]) | | ng/mL | LABORATORY | | | | | | SERVICES, | | | | | | SPECIAL IMM | | | | | | + COAG | | + +-------+ + + + + + | Specimen | + + | Blood - Blood | | (substance) | + + + + + | Narrative | Performed At | + + + | Test performed by immunoassay using [employer] i2000. . | [facility] | | Samples for analysis of Tacrolimus should be collected 30 minutes to 1 | LABORATORY | | hour prior to the next dose so that the measured concentration of | SERVICES, | | drug represents trough levels. Some other factors influencing | SPECIAL IMM + | | therapeutic range, dose administered, and result interpretation | COAG | | include time since transplantation, the organ transplanted, | | | co-administration of other immunosuppressants and interaction with | | | other drugs that may increase or decrease Tacrolimus concentrations. | | + + + + + + + + | Performing | Address | City/State/Zipcode | Phone Number | | Organization | | | | + + + + + | [facility] | [address] | [place] [address] | | | SPECIAL CLAUDIA | [address] | | | | IMM + COAG | | | | + + + + + BILIRUBIN DIRECT (10/09/2019 8:12 AM PST) + +---------+ + + + | Component | Value | Ref Range | Performed | Pathologist | | | | | At | Signature | + +---------+ + + + | BILIRUBIN | 0.3 | 0.0 - 0.3 mg/dL | [facility] | | | DIRECT | | | LABORATORY | | | | | | SERVICES, | | | | | | CORE | | + +---------+ + + + | BILI D CMNT | No Hemo | | [facility] | | | | | | LABORATORY | | | | | | SERVICES, | | | | | | CORE | | + +---------+ + + + + + | Specimen | + + | Blood - Blood | | (substance) | + + + + + + + | Performing | Address | City/State/Zipcode | Phone Number | | Organization | | | | + + + + + | [facility] | [address] | [place] [address] | | | SERVICES, CORE | [address] | | | + + + + + PHOSPHORUS, PLASMA (10/09/2019 8:12 AM PST) + +-------+ + + + | Component | Value | Ref Range | Performed | Pathologist | | | | | At | Signature | + +-------+ + + + | PHOSPHORUS, | 4.6 | 2.4 - 4.7 mg/dL | [facility] | | | PLASMA [...] + + + + + | [facility] | [address] | [place] [address] | | | SERVICES, CORE | [address] | | | + + + + + MAGNESIUM, PLASMA (10/09/2019 8:12 AM PST) + +-------+ + + + | Component | Value | Ref Range | Performed | Pathologist | | | | | At | Signature | + +-------+ + + + | MAGNESIUM,P | 1.7 | 1.6 - 2.6 mg/dL | [facility] | | | LASMA | | | LABORATORY | | | [...] + + + | [facility] | [address] | [place] [address] | | | SERVICES, CORE | [address] | | | + + + + + COMPLETE METABOLIC SET (NA,K,CL,CO2,BUN,CREAT,GLUC,CA,AST,ALT,BILI TOTAL,ALK PHOS,ALB,PROT TOTAL) (10/09/2019 8:12 AM PST) + + + + + + | Component | Value | Ref Range | Performed | Pathologist | | | | | At | Signature | + + + + + + | GLUCOSE, | 170 (H) | 70 - 99 mg/dL | [facility] | | | PLASMA | | | LABORATORY | | | (LAB) | | | SERVICES, | | | | | | CORE | | + + + + + + | BUN, PLASMA | 47 (H) | 6 - 20 mg/dL | [facility] | | | (LAB) | | | LABORATORY | | | | | | SERVICES, | | | | | | CORE | | + + + + + + | CREATININE | 2.14 (H) | 0.70 - 1.30 | [facility] | | | PLASMA | | mg/dL | LABORATORY | | | (LAB) | | | SERVICES, | | | | | | CORE | | + + + + + + | EGFR | 39 (L) | >60 mL/min | [facility] | | | - | | | LABORATORY | | | AUSTRALIAN | | | SERVICES, | | | | | | CORE | | + + + + + + | EGFR NON | 32 (L) | >60 mL/min | [facility] | | | -COREY | | | LABORATORY | | | RICAN | | | SERVICES, | | | | | | CORE | | + + + + + + | SODIUM, | 137 | 136 - 145 | [facility] | | | PLASMA | | mmol/L | LABORATORY | | | (LAB) | | | SERVICES, | | | | | | CORE | | + + + + + + | POTASSIUM, | 5.1 (H) | 3.4 - 5.0 | [facility] | | | PLASMA | | mmol/L | LABORATORY | | | (LAB) | | | SERVICES, | | | | | | CORE | | + + + + + + | CHLORIDE, | 103 | 97 - 108 mmol/L | [facility] | | | PLASMA | | | LABORATORY | | | (LAB) | | | SERVICES, | | | | | | CORE | | + + + + + + | TOTAL CO2, | 28 | 21 - 32 mmol/L | [facility] | | | PLASMA | | | LABORATORY | | | (LAB) | | | SERVICES, | | | | | | CORE | | + + + + + + | CALCIUM, | 9.7 | 8.6 - 10.2 | [facility] | | | PLASMA | | mg/dL | LABORATORY | | | (LAB) | | | SERVICES, | | | | | | CORE | | + + + + + + | CALCIUM(ALB | 9.4 | 8.6 - 10.2 | [facility] | | | CORRECTED) | | mg/dL | LABORATORY | | | | | | SERVICES, | | | | | | CORE | | + + + + + + | BILIRUBIN | 0.4 | 0.3 - 1.2 mg/dL | [facility] | | | TOTAL | | | LABORATORY | | | | | | SERVICES, | | | | | | CORE | | + + + + + + | TOTAL | 7.2 | 6.4 - 8.2 g/dL | [facility] | | | PROTEIN, | | | LABORATORY | | | PLASMA | | | SERVICES, | | | (LAB) | | | CORE | | + + + + + + | ALBUMIN, | 4.4 | 3.5 - 4.7 g/dL | [facility] | | | PLASMA | | | LABORATORY | | | (LAB) | | | SERVICES, | | | | | | CORE | | + + + + + + | ALK PHOS | 72 | 53 - 128 U/L | [facility] | | | | | | LABORATORY | | | | | | SERVICES, | | | | | | CORE | | + + + + + + | AST(SGOT) | 8 | <=41 U/L | [facility] | | | | | | LABORATORY | | | | | | SERVICES, | | | | | | CORE | | + + + + + + | ALT (SGPT) | 22 | <=60 U/L | [facility] | | [...] + + + + | BUN/CREATIN | 22 | 8 - 25 | [facility] | | | INE RATIO | | | LABORATORY | | | | | | SERVICES, | | | | | | CORE | | + + + + + + | GLOBULIN | 2.8 | 2.3 - 3.5 gm/dL | [facility] | | | LVL | | | LABORATORY | | | | | | SERVICES, | | | | | | CORE | | + + + + + + | ALBUMIN/MARITZA | 1.6 | 0.9 - 2.0 | [facility] | | | BULIN RATIO [...] MDRD equation recommended by the National | [facility] | | Kidney Disease Education Program. Estimated GFR Interpretive | LABORATORY | | Information: <60 mL/min/1.73 sq m Chronic Kidney | SERVICES, CORE | | Disease <15 mL/min/1.73 sq m Kidney Failure | | | Estimated GFR greater than 60 mL/min/1.73 sq m is of limited clinical | | | value. The MDRD equation is not valid in the following situations: | | | - Patients under 18 years [...] | + + + + + | [facility] | [address] | [place] [address] | | | ARTIS TAYLOR | [address] | | | + + + + + documented in this encounter Visit Diagnoses + + | Diagnosis | + + | Liver transplant status (HCC) | + + | Liver replaced by transplant (HCC) Liver replaced by transplant | + + documented in this encounter
--- OUTSIDE RECORDS SUMMARY | ~2020-07-29 | XMS | Encounter Summary ---
Demographics + + + | Address | [address] | | | [place] [address] | + + + | Home Phone [...] Author | [facility] | + + + | Organization | [facility] | + + + | Address | Unknown | + + + | Phone | Unavailable | + + + Support + + + + + | Name | Relationship | Address | Phone | + + + + + | Doreen Manley | ECON | [address] | | | | | [place] | | | | | [address] | | + + + + + Care Team Providers + +------+ + | Care Office Machine Installer Name | Role | Phone | + +------+ + | Sharon David MD | PCP | | + +------+ + Encounter Details +--------+ + + + + | Date | Type | Department | Care Team | Description | +--------+ + + + + | 10/26/ | Pharmacy | Specialty Pharmacy | | | | 2019 | Visit | Services [address] | | | | | | [address] | | | | | | [place], [place] | | | | | | [address] | | | | | | [phone] | | | +--------+ + + + [...] | | 2019 | [place] | | [address] | | | | | | [address] | | | | | | [place], [place] | | | | | | [address] | | | | | | [phone] | | | | | | | | +--------+ + + + + | 09/27/ | Telephone-S | Liver Transplant | Vimal Crowe MD | | | 2019 | cheduled | | [address] | | | | | | [facility] [place], | | | | | | [place] [address] | | | | | | [phone] | | | | | | | | +--------+ + + + + | 10/03/ | Appointment | Cardiology | | | | 2019 | | | | | +--------+ + + + + | 10/03/ | Office | Cardiology | Cyril Samuel | | | 2019 | Visit | | MD Patricia [address] | | | | | | [address] | | | | | | [place], [place] | | | | | | [address] | | | | | | [phone] | | | | | | | | +--------+ + + + + documented as of this encounter Visit Diagnoses Not on filedocumented in this encounter"
--- OUTSIDE RECORDS SUMMARY | ~2020-07-29 | XMS | Encounter Summary ---
Demographics + + + | Address | [address] | | | [place] [address] | + + + | Home Phone [...] | | | | | [place] | | | | | [address] | | + + + + + Care Team Providers + +------+ + | Care Drafter Construction Name | Role | Phone | + +------+ + | Sharon David MD | PCP | | + +------+ + Encounter Details +--------+ + + + + | Date | Type | Department | Care Team | Description | +--------+ + + + + | 08/17/ | Documentati | Clinical | Laurita Pinon | | | 2019 | on | Transplant Services | MD Jayce [address] | | | | | [address] | [place], [place] | | | | | [place], | [address] | | | | | [place] [address] | [phone] | | | | | [phone] | | | +--------+ + + + [...] Nephrology | Angélica Chao, | | | 2020 | [place] | | [address] | | | | | | [address] | | | | | | [place], [place] | | | | | | [address] | | | | | | [phone] | | | | | | | | +--------+ + + + + | 09/27/ | Telephone-S | Liver Transplant | Vimal Crowe MD | | | 2019 | [place] | | [address] | | | | | | [facility] [address] [place], | | | | | | [place] [address] | | | | | | [phone] | | | | | | | | +--------+ + + + + | 10/03/ | Appointment | Cardiology | | | | 2019 | | | | | +--------+ + + + + | 10/03/ | Office | Cardiology | Cyril Samuel | | | 2019 | Visit | | MD Patricia [address] | | | | | | [address] | | | | | | [place], [place] | | | | | | [address] | | | | | | [phone] | | | | | | | | +--------+ + + + + documented as of this encounter Visit Diagnoses Not on filedocumented in this encounter"
--- OUTSIDE RECORDS SUMMARY | ~2020-07-29 | XMS | Encounter Summary ---
Demographics + + + | Address | [address] | | | [place] [address] | + + + | Home Phone [...] + + + | Author | [facility] | + + + | Organization | [facility] | + + + | [...] [place] | | | | | [address] | | + + + + + Care Team Providers + +------+ + | Care Rack Worker Name | Role | Phone | + +------+ + | Sharon David MD | PCP | | + +------+ + Encounter Details +--------+ + + + + | Date | Type | Department | Care Team | Description | +--------+ + + + + | 03/22/ | Abstract | Clinical | Vimal Crowe MD | | | 2019 | | Transplant Services | [address] | | | | | [address] | [address] [place], | | | | | [place], | [place] [address] | | | | | [place] [address] | [phone] | | | | | [phone] | | | +--------+ + + + [...] Rd | | | | | | [place], [place] | | | | | | [address] | | | | | | [phone] | | | | | | | | +--------+ + + + + | 09/27/ | Telephone-S | Liver Transplant | Vimal Crowe MD | | | 2019 | [place] | | [address] | | | | | | [facility] [address] [place], | | | | | | [place] [address] | | | | | | [phone] | | | | | | | | +--------+ + + + + | 10/03/ | Appointment | Cardiology | | | | 2019 | | | | | +--------+ + + + + | 10/03/ | Office | Cardiology | Cyril Samuel | | | 2019 | Visit | Darren Gomez MD [address] | | | | | | [address] | | | | | | [place], [place] | | | | | | [address] | | | | | | [phone] | | | | | | | | +--------+ + + + + documented as of this encounter Procedures + +--------+ + + + | Procedure Name | Priori | Date/Time | Associated Diagnosis | Comments | | | ty | | | | + +--------+ + + + | LIVER TRANSPLANT | Routin | 03/21/2020 | | Results for this | | POST PANEL (EXT | e | 8:25 AM | | procedure are in the | | RESULTS) | | PDT | | results section. | + +--------+ + + + documented in this encounter Results LIVER TRANSPLANT POST PANEL (EXT RESULTS) (03/21/2020 8:25 AM PDT) + + + + + + | Component | Value | Ref Range | Performed | Pathologist | | | | | At | Signature | + + + + + + | SODIUM, | 139 | mmol/L | [facility] | | | PLASMA | | | LAB - | | | (LAB) | | | [place] | | + + + + + + | POTASSIUM, | 4.9 | mmol/L | [facility] | | | PLASMA | | | LAB - | | | (LAB) | | | [place] | | + + + + + + | CHLORIDE, | 102 | mmol/L | [facility] | | | [...] + + + + | GLUCOSE, | 276 (A) | 65 - 110 mg/dL | [facility] | | | PLASMA | | | LAB - | | | (LAB) | | | [place] | | + + + + + + | BUN, PLASMA | 33 | mg/dL | [facility] | | | (LAB) | | | LAB - | | | | | | [place] | | + + + + + + | CREATININE | 1.93 | mg/dL | [facility] | | | [...] + + + + | PHOSPHORUS, | 3.7 | mg/dL | [facility] | | | PLASMA | | | LAB - | | | (LAB) | | | [place] | | + + + + + + | MAGNESIUM,P | 1.8 | mg/dL | [facility] | | | LASMA | | | LAB - | | | | | | [place] | | + + + + + + | TOTAL | 6.1 | g/dL | [facility] | | | PROTEIN, | | | LAB - | | | PLASMA | | | [place] | | | (LAB) | | | | | + + + + + + | ALBUMIN, | 3.9 | g/dL | [facility] | | | PLASMA | | | LAB - | | | (LAB) | | | [place] | | + + + + + + | BILIRUBIN | 0.4 | Transcutaneous | [facility] | | | [...] + + + | ALK PHOS | 74 | U/L | [facility] | | | | | | LAB - | | | | | | [place] | | + + + + + + | AST(SGOT) | 11 | U/L | [facility] | | | | | | LAB - | | | | | | [place] | | + + + + + + | ALT (SGPT) | 8 | U/L | [facility] | | | | | | LAB - | | | | | | [place] | | + + + + + + | URIC ACID, | 6.2 | mg/dL | [facility] | | | PLASMA | | | LAB - | | | (LAB) | | | [place] | | + + + + + + | WHITE CELL | 4.3 | K/cu mm | [facility] | | | COUNT | | | LAB - | | | | | | [place] | | + + + + + + | HEMATOCRIT | 33.9 | % | [facility] | | | | | | LAB - | | | | | | [place] | | + + + + + + | HEMOGLOBIN | 11.5 (A) | 13.5 - 17.5 | [facility] | | | | | g/dL | LAB - | | | | | | [place] | | + + + + + + | PLATELET | 93 | K/cu mm | [facility] | | | COUNT | | | LAB - | | | | | | [place] | | + + + + + + | TACROLIMUS | 6.1 | ng/mL | [facility] | | | [address] | [place] | [phone] | | [place] | | | | + + + + + documented in this encounter Visit Diagnoses Not on filedocumented in this encounter"
--- OUTSIDE RECORDS SUMMARY | ~2020-07-29 | XMS | Encounter Summary ---
Demographics + + + | Address | [address] | | | [place] [address] | + + + | Home Phone [...] + + + | Author | [facility] | + + + | Organization | [facility] | + + + | Address | Unknown | + + + | Phone | Unavailable | + + + Support + + + + + | Name | Relationship | Address | Phone | + + + + + | Doreen Manley | ECON | [address] | | | | | [place] | | | | | [address] | | + + + + + Care Team Providers + +------+ + | Care Envelope Adjuster Name | Role | Phone | + +------+ + | Sharon David MD | PCP | | + +------+ + Reason for Visit + +--------+ + | Reason | Onset | Comments | | | Date | | + +--------+ + | Lab Draw | 07/07/ | | | | 2018 | | + +--------+ + Encounter Details +--------+ + + + + | Date | Type | Department | Care Team | Description | +--------+ + + + + | 07/07/ | Abstract | Clinical | Laurita Pinon | Lab Draw | | 2018 | | Transplant Services | MD Jayce [address] | | | | | [address] | [place], [place] | | | | | [place], | [address] | | | | | [place] [address] | [phone] | | | | | [phone] | | | +--------+ + + + [...] Rd | | | | | | [place], [place] | | | | | | [address] | | | | | | [phone] | | | | | | | | +--------+ + + + + | 09/27/ | Telephone-S | Liver Transplant | Vimal Crowe MD | | | 2019 | [place] | | [address] | | | | | | [address], | | | | | | [place] [address] | | | | | | [phone] | | | | | | | | +--------+ + + + + | 10/03/ | Appointment | Cardiology | | | | 2019 | | | | | +--------+ + + + + | 10/03/ | Office | Cardiology | Cyril Samuel | | | 2020 | Visit | | MD Patricia [address] | | | | | | [address] | | | | | | [place], [place] | | | | | | [address] | | | | | | [phone] | | | | | | | | +--------+ + + + + documented as of this encounter Procedures + +--------+ + + + | Procedure Name | Priori | Date/Time | Associated Diagnosis | Comments | | | ty | | | | + +--------+ + + + | NICOTINE + | Routin | 06/30/2019 | | Results for this | | METABOLITE SCREEN, | e | | | procedure are in the | | URINE | | | | results section. | + +--------+ + + + documented in this encounter Results NICOTINE + METABOLITE SCREEN, URINE (06/30/2019) + +-------+ + + + | Component | Value | Ref Range | Performed | Pathologist | | | | | At | Signature | + +-------+ + + + | NICOTINE, | <2 | | [facility] | | | URINE | | | LAB - | | | | | | [place] | | + +-------+ + + + | COTININE, | <5 | | [facility] | | | URINE | | | LAB - | | | | | | [place] | | + +-------+ + + + | 3-OH-COTINI | <50 | | [facility] | | | NE, URINE | | | LAB - | | | | | | [place] | | + +-------+ + + + | NORNICOTINE | <2 | | [facility] | | | , URINE | | | LAB - | | | | | | [place] | | + +-------+ + + + | ANABASINE, | <3 | | [facility] | | | URINE | | | LAB - | | | | | | [place] | | + +-------+ + + + [...] + + | [facility] - | [address] | [place] | [phone] | | [place] | | | | + + + + + documented in this encounter Visit Diagnoses Not on filedocumented in this encounter"
--- OUTSIDE RECORDS SUMMARY | ~2020-07-29 | XMS | Encounter Summary ---
Demographics + + + | Address | [address] | | | [place] [address] | + + + | Home Phone [...] Author + + + | Author | [facility] | + + + | Organization | [facility] | + + + | Address | Unknown | + + + | Phone | Unavailable | + + + Support + + + + + | Name | Relationship | Address | Phone | + + + + + | Doreen Manley | ECON | [address] | | | | | [place] | | | | | [address] | | + + + + + Care Team Providers + +------+ + | Care Head Control Clerk Name | Role | Phone | + +------+ + | Sharon David MD | PCP | | + +------+ + Encounter Details +--------+ + + + + | Date | Type | Department | Care Team | Description | +--------+ + + + + | 05/01/ | Procedure | Diagnostic Imaging | | | | 2019 | Pass | Services at [facility] | | | | | | [address] | | | | | | [place] | | | | | | [facility], [address] [place] [address] | | | | | | [place], [place] | | | | | | [address] | | | | | | [phone] | | | +--------+ + + + [...] Rd | | | | | | [place], [place] | | | | | | [address] | | | | | | [phone] | | | | | | | | +--------+ + + + + | 09/27/ | Telephone-S | Liver Transplant | Vimal Crowe MD | | | 2019 | cheduled | | [address] | | | | | | [facility] [place], | | | | | | [place] [address] | | | | | | [phone] | | | | | | | [...] Rd | | | | | | [place] | | | | | | [address] | | | | | | [phone] | | | | | | | | +--------+ + + + + documented as of this encounter Visit Diagnoses Not on filedocumented in this encounter"
--- OUTSIDE RECORDS SUMMARY | ~2020-07-29 | XMS | Encounter Summary ---
Demographics + + + | Address | [address] | | | [place] [address] | + + + | Home Phone | | + + + | Preferred Language | Unknown | + + + | Marital Status | Single | + + + | Sikh Affiliation | NON | + + + [...] [place] | | | | | [address] | | + + + + + Care Team Providers + +------+ + | Care Support Services Coordinator Name | Role | Phone | + +------+ + | Sharon David MD | PCP | | + +------+ + Encounter Details +--------+--------+ + + + | Date | Type | Department | Care Team | Description | +--------+--------+ + + + | 05/18/ | Travel | | | | | 2019 | | | | | +--------+--------+ + [...] Rd | | | | | | [place], [place] | | | | | | [address] | | | | | | [phone] | | | | | | | | +--------+ + + + + | 09/27/ | Telephone-S | Liver Transplant | Vimal Crowe MD | | | 2019 | [place] | | [address] | | | | | | [address], | | | | | | [place] [address] | | | | | | [phone] | | | | | | | [...] Rd | | | | | | [place] | | | | | | [address] | | | | | | [phone] | | | | | | | | +--------+ + + + + documented as of this encounter Visit Diagnoses Not on filedocumented in this encounter"
--- OUTSIDE RECORDS SUMMARY | ~2020-07-29 | XMS | Encounter Summary ---
Demographics + + + | Address | [address] | | | [place] [address] | + + + | Home Phone | | + + + | Preferred Language | Unknown | + + + | Marital Status | Single | + + + | Scientology Affiliation | Unknown | + + + | Race | White | + + + | Ethnic Group | Not or | + + + Author + + + | Author | [facility] | | | and [place] | + + + | Organization | [facility] | | | and [place] | [...] Team Providers + +------+ + | Care Crm Marketing Specialist Name | Role | Phone | + +------+ + | Sharon David MD | PCP | | + +------+ + Reason for Visit +--------+--------+ + | Reason | Onset | Comments | | | Date | | +--------+--------+ + | LABS | 06/29/ | LAB ENTRY 06/16/2020 | | | 2020 | | +--------+--------+ + Encounter Details +--------+ + + + + | Date | Type | Department | Care Team | Description | +--------+ + + + + | 06/29/ | Telephone | [facility] | Chen Alan, | LABS (LAB ENTRY | | 2019 | | CARDIOLOGY HIPOLITO | MD Phil DARBY | 06/16/2020) | | | | [address] | [place], [place] | | | | | [place], [place] | [address] | | | | | [address] | | | | | | [phone] | | | +--------+ + + + [...] this encounter Miscellaneous Notes Telephone Encounter - Britta [employer] Server - 06/29/2020 10:36 AM PDTLAB: BENEDICT RAMOS COLLECTION DATE: 06/16/2020 COLLECTION TIME: 919 ORDERING PROVIDER: VELMA COMPREHENSIVE METABOLIC PANEL COMPONENT VALUE RANGE UNITS SODIUM 139 132-143 Meq/L POTASSIUM 5.1 3.6-5.1 Meq/L CHLORIDE 99 95-112 Meq/L CARBON DIOXIDE 31 19-31 Meq/L ANION GAP 14.1 7-21 GLUCOSE 113 H 70-100 Mg/dL UREA NITROGEN 55 H 6-23 Mg/dL CREATININE, SRM 3.022 H 0.70-1.11 Mg/dL GFR ESTIMATE 22 L Ml/min BUN/CREAT RTO 18.2 6.0-28.6 CALCIUM 10.0 8.6-10.3 Mg/dL AST (SGOT) 19 13-39 U/L ALT (SGPT) 21 7-62 U/L ALKALINE PHOS 91 31-130 U/L BILIRUBIN, TOTAL 0.6 0.0-1.2 Mg/dL PROTEIN 6.7 6.0-8.3 G/dL ALBUMIN 4.3 3.5-5.0 G/dL GLOBULIN 2.4 1.8-3.5 G/dL A/G RATIO 1.8 1.1-2.4 CBC COMPONENT VALUE RANGE UNITS WBC 5.8 4.5-11.0 K/ul RBC 3.59 L 4.3-5.7 M/ul HEMOGLOBIN 10.8 L 13.5-18.0 G/dl HEMATOCRIT 30.1 L 41-50 % MCV 83.8 81-99 Fl RDW 14.2 10.5-15.0 % MCH 30 27-33 Pg MCHC 36 30-36 G/dL PLATELET COUNT 130 L 140-440 K/ul docum ented in this encounter Plan of Treatment +--------+---------+ + + + | Date | Type | Specialty | Care Team | Description | +--------+---------+ + + + | 12/22/ | Office | Cardiology | Shannan Almanza | | | 2020 | Visit | | [address] | | | | | | [address] | | | | | | [place] [address] | | | | | | [phone] | | | | | | | | +--------+---------+ + + + documented as of this encounter Visit Diagnoses Not on filedocumented in this encounter"
--- OUTSIDE RECORDS SUMMARY | ~2020-07-29 | XMS | Encounter Summary ---
Demographics + + + | Address | [address] | | | [place] [address] | + + + | Home Phone [...] | | | | | [place] | | | | | [address] | | + + + + + Care Team Providers + +------+ + | Care Cigarette Seller Name | Role | Phone | + +------+ + | Sharon David MD | PCP | | + +------+ + Reason for Visit + +--------+ + | Reason | Onset | Comments | | | Date | | + +--------+ + | Lab Results | 03/08/ | | | | 2020 | | + +--------+ + Encounter Details +--------+ + + + + | Date | Type | Department | Care Team | Description | +--------+ + + + + | 03/08/ | Telephone | Nephrology & | Angélica Chao, | Lab Results | | 2020 | | Hypertension at [facility] | MD [address] | | | | | [address] | [facility] | | | | | Loop Physician's | [place], [place] | | | | | Pavilion, 3rd floor | [address] | | | | | [place], [place] | [phone] | | | | | [address] | | | | | | [phone] | | | +--------+ + + + [...] this encounter Miscellaneous Notes Telephone Encounter - Angélica Chao MD - 03/08/2020 2:43 PM PDTCalled pt to follow up on weights, edema, BPs post discussion at last appt. No answer, LV requesting call back to farzana olivera. Labs on 02/28 showed potassium reasonable at 5.1, creat up a touch at 2.2. Awaiting ca ll back. Angélica Chao MD [facility] Professor Division of Nephrology and Hypertension Office tel: [phone] P M PDTdocumented in this encounter Plan of Treatment +--------+ + + + + | Date | Type | Specialty | Care Team | Description | +--------+ + + + + | 08/08/ | Telephone-S | Nephrology | Angélica Chao, | | | 2019 | [place] | | [address] | | | | | | [address] | | | | | | [place], [place] | | | | | | [address] | | | | | | [phone] | | | | | | | | +--------+ + + + + | 09/27/ | Telephone-S | Liver Transplant | Vimal Crowe MD | | 2019 | cheduled | | [address] | | | | | | [facility] [address] [place], | | | | | | [place] [address] | | | | | | [phone] | | | | | | | [...] Rd | | | | | | [place], [place] | | | | | | [address] | | | | | | [phone] | | | | | | | | +--------+ + + + + documented as of this encounter Visit Diagnoses Not on filedocumented in this encounter"
--- OUTSIDE RECORDS SUMMARY | ~2020-07-29 | XMS | Encounter Summary ---
Demographics + + + | Address | [address] | | | [place] [address] | + + + | Home Phone | | + + + | Preferred Language | Unknown | + + + | Marital Status | Single | + + + | Temple Affiliation | NON | + + + | Race | White | + + + | Ethnic Group | Not or | + + + Author + + + | Author | [facility] | + + + | Organization | [facility] | + + + | Address | Unknown | + + + | Phone | Unavailable | + + + Support + + + + + | Name | Relationship | Address | Phone | + + + + + | Doreen Manley | ECON | [address] | | | | | [place] | | | | | [address] | | + + + + + Care Team Providers + +------+ + | Care Harness Builder Name | Role | Phone | + +------+ + | Sharon David MD | PCP | | + +------+ + Encounter Details +--------+ + + + + | Date | Type | Department | Care Team | Description | +--------+ + + + + | 07/21/ | MyChart | Liver Transplant | Vimal Crowe MD | RE: Steffen Duran | | 2019 | Encounter | at [facility] [address] | [address] | | | | | [address] | [address] [place], | | | | | Physician's | [place] [address] | | | | | [place] [address] [place] [address] | [phone] | | | | | [place], [place] | | | | | | [address] | | | | | | [phone] | | | +--------+ + + + [...] Rd | | | | | | [place], [place] | | | | | | [address] | | | | | | [phone] | | | | | | | | +--------+ + + + + | 09/27/ | Telephone-S | Liver Transplant | Vimal Crowe MD | | | 2019 | cheduled | | [address] | | | | | | [address], | | | | | | [place] [address] | | | | | | [phone] | | | | | | | [...] Rd | | | | | | [place], [place] | | | | | | [address] | | | | | | [phone] | | | | | | | | +--------+ + + + + documented as of this encounter Visit Diagnoses Not on filedocumented in this encounter"
--- OUTSIDE RECORDS SUMMARY | ~2020-07-29 | XMS | Encounter Summary ---
Demographics + + + | Address | [address] | | | [place] [address] | + + + | Home Phone | | + + + | Preferred Language | Unknown | + + + | Marital Status | Single | + + + | Bahai Affiliation | NON | + + + [...] | | | | | [place] | | | | | [address] | | + + + + + Care Team Providers + +------+ + | Care Residential Concierge Name | Role | Phone | + +------+ + | Sharon David MD | PCP | | + +------+ + Encounter Details +--------+------+ + + + | Date | Type | Department | Care Team | Description | +--------+------+ + + + | 07/28/ | Lab | Laboratory at [facility] | | Abnormal | | 2020 | | [address] | | echocardiogram | | | | [facility], | | | | | | [address] | | | | | | [place], [place] | | | | | | [address] | | | | | | [phone] | | | +--------+------+ + + + [...] | | | | | | [place], [place] | | | | | | [address] | | | | | | [phone] | | | | | | | | +--------+ + + + + | 09/27/ | Telephone-S | Liver Transplant | Vimal Crowe MD | | | 2019 | [place] | | [address] | | | | | | [address], | | | | | | [place] [address] | | | | | | [phone] | | | | | | | | +--------+ + + + + | 10/03/ | Appointment | Cardiology | | | | 2019 | | | | | +--------+ + + + + | 10/03/ | Office | Cardiology | Cyril Samuel | | | 2019 | Visit | | MD Patricia [address] | | | | | | [address] | | | | | | [place], [place] | | | | | | [address] | | | | | | [phone] | | | | | | | [...] this encounter Results CBC AND AUTO DIFF (07/28/2020 12:47 PM [...] | [facility] | [address] | [place] [address] | | | [facility] | | | | [facility] [...] | + + + + + | [facility] | [address] | [place] [address] | | | SERVICES, CORE | [address]ISES [...] + + | [facility] | [address] | [place] [address] | | | SERVICES, CORE | [address] | | | + + + + + NT-PRO BNP (07/28/2020 12:47 PM PDT) + [...] | + + + + + | [facility] | [address] | [place] [address] | | | SERVICES, CORE | MOISES [...] | | | LABORATORY | | | [facility] | | | SERVICES, | | | [...] MDRD equation recommended by the National | [facility] | | Kidney Disease Education Program. Estimated [...] | + + + + + | [facility] | [address] | [place] [address] | | | [facility] | | | | | HEALTH + HEALING | | | | + + + + + documented in this encounter Visit Diagnoses + + | Diagnosis | + + | Abnormal echocardiogram Nonspecific (abnormal) findings on radiological and other | | examination of other intrathoracic organs | + + documented in this encounter"
--- OUTSIDE RECORDS SUMMARY | ~2020-07-29 | XMS | Encounter Summary ---
Demographics + + + | Address | [address] | | | [place] [address] | + + + | Home Phone [...] [place] | | | | | [address] | | + + + + + Care Team Providers + +------+ + | Care Translator/Interpreter Name | Role | Phone | + +------+ + | Sharon David MD | PCP | | + +------+ + Reason for Visit + +--------+ + | Reason | Onset | Comments | | | Date | | + +--------+ + | Lab Draw | 04/08/ | Outside Labs | | | 2019 | | + +--------+ + Encounter Details +--------+ + + + + | Date | Type | Department | Care Team | Description | +--------+ + + + + | 04/08/ | Abstract | Clinical | Vimal Crowe MD | Lab Draw (Outside | | 2019 | | Transplant Services | [address] | Labs) | | | | [address] | [address] [place], | | | | | [place], | [place] [address] | | | | | [place] [address] | [phone] | | | | | [phone] | | | +--------+ + + + [...] | | 2019 | [place] | | MD [address] | | | | | | [address] | | | | | | [place], [place] | | | | | | [address] | | | | | | [phone] | | | | | | | | +--------+ + + + + | 09/27/ | Telephone-S | Liver Transplant | Vimal Crowe MD | | | 2019 | [place] | | [address] | | | | | | [address], | | | | | | [place] [address] | | | | | | [phone] | | | | | | | | +--------+ + + + + | 10/03/ | Appointment | Cardiology | | | | 2019 | | | | | +--------+ + + + + | 10/03/ | Office | Cardiology | Cyril Samuel | | | 2019 | Visit | | MD [address] | | | | | | [address] | | | | | | [place], [place] | | | | | | [address] | | | | | | [phone] | | | | | | | | +--------+ + + + + documented as of this encounter Procedures + +--------+ + + + | Procedure Name | Priori | Date/Time | Associated Diagnosis | Comments | | | ty | | | | + +--------+ + + + | LIVER PRE-TRANSPLANT | Routin | 04/06/2019 | | Results for this | | [...] RESULTS PANEL (FOR EXTERNAL RESULT ENTRY ONLY) (03/21) + + + + + + | Component | Value | Ref Range | Performed | Pathologist | | | | | At | Signature | + + + + + + | CREATININE | 1.61 (A) | mg/dL | [facility] | | | PLASMA | | | LAB - | | | (LAB) | | | [place] | | + + + + + + | ALBUMIN, | 3.0 (A) | g/dL | [facility] | | | PLASMA | | | LAB - | | | (LAB) | | | [place] | | + + + + + + | BILIRUBIN | 12.6 (A) | Transcutaneous | [facility] | | | TOTAL | | Bilirubinometer | LAB - | | | | | | [place] | | + + + + + + | ALK PHOS | 134 (A) | U/L | [facility] | | | | | | LAB - | | | | | | [place] | | + + + + + + | AST(SGOT) | 74 (A) | U/L | [facility] | | | | | | LAB - | | | | | | [facility] | | + + + + + + | ALT (SGPT) | 40 | U/L | [facility] | | | | | | LAB - | | | | | | [facility] | | + + + + + + | INR | 2.8 (A) | 0.98 - 1.08 INR | [facility] | | | | | | LAB - | | | | | | [facility] | | + + + + + + | MELD | 34Comment: Calculated | | [facility] | | | | Manually Using OPTN MELD | | LAB - | | | | Calculator | | [facility] | | + + [...] + + | [facility] - | [address] | [place] | [phone] | | [facility] | | | | + + + + + documented in this encounter Visit Diagnoses Not on filedocumented in this encounter"
--- OUTSIDE RECORDS SUMMARY | ~2020-07-29 | XMS | Encounter Summary ---
Demographics + + + | Address | [address] | | | [place] [address] | + + + | Home Phone | | + + + | Preferred Language | Unknown | + + + | Marital Status | Single | + + + | Mormon Affiliation | NON | + + + | Race | White | + + + | Ethnic Group | Not or | + + + Author + + + | Author | [facility] | + + + | Organization | [facility] | + + + | [...] [place] | | | | | [address] | | + + + + + Care Team Providers + +------+ + | Care Agricultural Extension Educator Name | Role | Phone | + +------+ + | Sharon David MD | PCP | | + +------+ + Encounter Details +--------+ + + + + | Date | Type | Department | Care Team | Description | +--------+ + + + + | 01/21/ | Pharmacy | [facility] | | | | 2020 | Visit | [address] | | | | | | Place [address] | | | | | | [place] [address] | | | | | | [phone] | | | +--------+ + + + [...] Rd | | | | | | [place], [place] | | | | | | [address] | | | | | | [phone] | | | | | | | | +--------+ + + + + | 09/27/ | Telephone-S | Liver Transplant | Vimal Crowe MD | | | 2019 | cheduled | | [address] | | | | | | [address], | | | | | | [place] [address] | | | | | | [phone] | | | | | | | [...] Rd | | | | | | [place] | | | | | | [address] | | | | | | [phone] | | | | | | | | +--------+ + + + + documented as of this encounter Visit Diagnoses Not on filedocumented in this encounter"
--- OUTSIDE RECORDS SUMMARY | ~2020-07-29 | XMS | Encounter Summary ---
Demographics + + + | Address | [address] | | | [place] [address] | + + + | Home Phone | | + + + | Preferred Language | Unknown | + + + | Marital Status | Single | + + + | Islam Affiliation | NON | + + + [...] | | | | | [place] | | | | | [address] | | + + + + + Care Team Providers + +------+ + | Care Cooling Room Attendant Name | Role | Phone | + +------+ + | Sharon David MD | PCP | | + +------+ + Encounter Details +--------+ + + + + | Date | Type | Department | Care Team | Description | +--------+ + + + + | 04/12/ | Abstract | Clinical | Vimal Crowe MD | | | 2019 | | Transplant Services | [address] | | | | | [address] | [address] [place], | | | | | [place], | [place] [address] | | | | | [place] [address] | [phone] | | | | | [phone] | | | +--------+ + + + [...] Rd | | | | | | [place], [place] | | | | | | [address] | | | | | | [phone] | | | | | | | | +--------+ + + + + | 09/27/ | Telephone-S | Liver Transplant | Vimal Crowe MD | | | 2019 | [place] | | [address] | | | | | | [facility] [address] [place], | | | | | | [place] [address] | | | | | | [phone] | | | | | | | | +--------+ + + + + | 10/03/ | Appointment | Cardiology | | | | 2019 | | | | | +--------+ + + + + | 10/03/ | Office | Cardiology | Cyril Samuel | | | 2019 | Visit | Darren Gomez MD [address] | | | | | | [address] | | | | | | [place], [place] | | | | | | [address] | | | | | | [phone] | | | | | | | | +--------+ + + + + documented as of this encounter Procedures + +--------+ + + + | Procedure Name | Priori | Date/Time | Associated Diagnosis | Comments | | | ty | | | | + +--------+ + + + | LIVER TRANSPLANT | Routin | 04/11/2020 | | Results for this | | POST PANEL (EXT | e | 7:22 AM | | procedure are in the | | RESULTS) | | PDT | | results section. | + +--------+ + + + documented in this encounter Results LIVER TRANSPLANT POST PANEL (EXT RESULTS) (04/11/2020 7:22 AM PDT) + + + + + [...] + + + + | POTASSIUM, | 4.6 | mmol/L | [facility] | | | [...] + + + + | GLUCOSE, | 252 (A) | 65 - 110 mg/dL | [facility] | | | PLASMA | | | LAB - | | | (LAB) | | | [place] | | + + + + + + | BUN, PLASMA | 44 | mg/dL | [facility] | | | (LAB) | | | LAB - | | | | | | [place] | | + + + + + + | CREATININE | 2.27 | mg/dL | [facility] | | | PLASMA | | | LAB - | | | (LAB) | | | [place] | | + + + + + + | CALCIUM, | 9.4 | mg/dL | [facility] | | | PLASMA | | | LAB - | | | (LAB) | | | [place] | | + + + + + + | PHOSPHORUS, | 4.4 | mg/dL | [facility] | | | PLASMA | | | LAB - | | | (LAB) | | | [place] | | + + + + + + | MAGNESIUM,P | 2.4 | mg/dL | [facility] | | | [...] + + + | ALK PHOS | 73 | U/L | [facility] | | | | | | LAB - | | | | | | [place] | | + + + + + + | AST(SGOT) | 18 | U/L | [facility] | [...] + + + | URIC ACID, | 7.8 | mg/dL | [facility] | | | [...] + + + + | HEMATOCRIT | 29.9 | % | [facility] | | | | | | LAB - | | | | | | [place] | | + + + + + + | HEMOGLOBIN | 10.5 (A) | 13.5 - 17.5 | [facility] | | | | | g/dL | LAB - | | | | | | [place] | | + + + + + + | PLATELET | 104 | K/cu mm | [facility] | | | COUNT | | | LAB - | | | | | | [place] | | + + + + + + | TACROLIMUS | 6.4 | ng/mL | [facility] | | | [address] | [place] | [phone] | | [place] | | | | + + + + + documented in this encounter Visit Diagnoses Not on filedocumented in this encounter"
--- OUTSIDE RECORDS SUMMARY | ~2020-07-29 | XMS | Encounter Summary ---
Demographics + + + | Address | [address] | | | [place] [address] | + + + | Home Phone [...] [place] | | | | | [address] | | + + + + + Care Team Providers + +------+ + | Care Small Animal Caretaker Name | Role | Phone | + +------+ + | Sharon David MD | PCP | | + +------+ + Encounter Details +--------+ + + + + | Date | Type | Department | Care Team | Description | +--------+ + + + + | 05/19/ | Abstract | Clinical | Vimal Crowe MD | | | 2019 | | Transplant Services | [address] | | | | | [address] | [address] [place], | | | | | [place], | [place] [address] | | | | | [place] [address] | [phone] | | | | | [phone] | | | +--------+ + + + [...] Rd | | | | | | [place], [place] | | | | | | [address] | | | | | | [phone] | | | | | | | | +--------+ + + + + | 09/27/ | Telephone-S | Liver Transplant | Vimal Crowe MD | | | 2019 | [place] | | [address] | | | | | | [facility] [address] [place], | | | | | | [place] [address] | | | | | | [phone] | | | | | | | | +--------+ + + + + | 10/03/ | Appointment | Cardiology | | | | 2019 | | | | | +--------+ + + + + | 10/03/ | Office | Cardiology | Cyril Samuel | | | 2019 | Visit | Darren Gomez MD [address] | | | | | | [address] | | | | | | [place], [place] | | | | | | [address] | | | | | | [phone] | | | | | | | [...] Results LIVER TRANSPLANT POST PANEL (EXT RESULTS) (05/16/2020 8:46 AM PDT) + + + + + [...] + + + + | POTASSIUM, | 4.4 | mmol/L | [facility] | | | [...] + + + + | GLUCOSE, | 260 (A) | 65 - 110 mg/dL | [facility] | | | PLASMA | | | LAB | | | (LAB) | | | | | | | | | [place] | | + + + + + + | BUN, PLASMA | 39 | mg/dL | [facility] | | | (LAB) | | | LAB | | | | | | | | | | | | [place] | | + + + + + + | CREATININE | 2.05 | mg/dL | [facility] | | | [...] + + + + | TOTAL | 6.5 | g/dL | [facility] | | | [...] + + + + | AST(SGOT) | 15 | U/L | [facility] | | | [...] + + + | URIC ACID, | 6.1 | mg/dL | [facility] | | | PLASMA | | | LAB | | | (LAB) | | | | | | | | | [place] | | + + + + + + | WHITE CELL | 4.8 | K/cu mm | [facility] | | | COUNT | | | LAB | | | | | | | | | | | | [place] | | + + + + + + | HEMATOCRIT | 33.0 | % | [facility] | | | | | | LAB | | | | | | | | | | | | [place] | | + + + + + + | HEMOGLOBIN | 11.4 (A) | 13.5 - 17.5 | [facility] | | | | | g/dL | LAB | | | | | | | | | | | | [place] | | + + + + + + | PLATELET | 117 | K/cu mm | [facility] | | | COUNT | | | LAB | | | | | | | | | | | | [place] | | + + + + + + | TACROLIMUS | 3.1 | ng/mL | [facility] | | | [...] + | [facility] | | | [phone] | | | | | | | [place] | | | | + +---------+ + + documented in this encounter Visit Diagnoses Not on filedocumented in this encounter"
--- OUTSIDE RECORDS SUMMARY | ~2020-07-29 | XMS | Encounter Summary ---
Demographics + + + | Address | [address] | | | [place] [address] | + + + | Home Phone | | + + + | Preferred Language | Unknown | + + + | Marital Status | Single | + + + | Baptism Affiliation | NON | + + + [...] [place] | | | | | [address] | | + + + + + Care Team Providers + +------+ + | Care Spiritual Counselor Name | Role | Phone | + +------+ + | Sharon David MD | PCP | | + +------+ + Encounter Details +--------+ + + + + | Date | Type | Department | Care Team | Description | +--------+ + + + + | 11/13/ | Pharmacy | Outpatient Retail | | | | 2019 | Visit | [facility] | | | | | | [address] | | | | | | [address] [place], [place] | | | | | | [address] | | | | | | [phone] | | | +--------+ + + + [...] Rd | | | | | | [place], [place] | | | | | | [address] | | | | | | [phone] | | | | | | | | +--------+ + + + + | 09/27/ | Telephone-S | Liver Transplant | Vimal Crowe MD | | | 2019 | cheduled | | [address] | | | | | | [facility] [place], | | | | | | [place] [address] | | | | | | [phone] | | | | | | | [...] [address] | | | | | | [place], [place] | | | | | | [address] | | | | | | [phone] | | | | | | | | +--------+ + + + + documented as of this encounter Visit Diagnoses Not on filedocumented in this encounter"
--- OUTSIDE RECORDS SUMMARY | ~2020-07-29 | XMS | Encounter Summary ---
Demographics + + + | Address | [address] | | | [place] [address] | + + + | Home Phone [...] [place] | | | | | [address] | | + + + + + Care Team Providers + +------+ + | Care Die Stamping Press Operator Name | Role | Phone | [...] | | [address] | [address] [place], | | | | | Physician's | [place] [address] | | | | | [place] [address] [place] [address] | [phone] | | | | | [place], [place] | | | | | | [address] | | | | | | [phone] | | | +--------+ + + + [...] Rd | | | | | | [place], [place] | | | | | | [address] | | | | | | [phone] | | | | | | | | +--------+ + + + + | 09/27/ | Telephone-S | Liver Transplant | Vimal Crowe MD | | | 2019 | cheduled | | [address] | | | | | | [address], | | | | | | [place] [address] | | | | | | [phone] | | | | | | | [...] Rd | | | | | | [place], [place] | | | | | | [address] | | | | | | [phone] | | | | | | | | +--------+ + + + + documented as of this encounter Visit Diagnoses Not on filedocumented in this encounter"
--- OUTSIDE RECORDS SUMMARY | ~2020-07-29 | XMS | Encounter Summary ---
Demographics + + + | Address | [address] | | | [place] [address] | + + + | Home Phone | | + + + | Preferred Language | Unknown | + + + | Marital Status | Single | + + + | Uatsdin Affiliation | NON | + + + | Race | White | + + + | Ethnic Group | Not or | + + + Author + + + | Author | [facility] | + + + | Organization | [facility] | + + + | [...] [place] | | | | | [address] | | + + + + + Care Team Providers + +------+ + | Care Finisher Fiberglass Boat Parts Name | Role | Phone | + +------+ + | Sharon David MD | PCP | | + +------+ + Reason for Visit + +--------+ + | Reason | Onset | Comments | | | Date | | + +--------+ + | Liver Transplant | 06/03/ | 05/30/20 tacrolimus level follow-up | | Follow Up | 2020 | | + +--------+ + Encounter Details +--------+ + + + + | Date | Type | Department | Care Team | Description | +--------+ + + + + | 06/03/ | Documentati | Clinical | Cecille Brunner RN | Liver Transplant | | 2020 | on | Transplant Services | [address] | Follow Up (05/30/20 | | | | [address] | [place], | tacrolimus level | | | | [place], | [place] [address] | follow-up) | | | | [place] [address] | | | | | | [phone] | | | +--------+ + + + [...] Telephone Encounter - Cecille Brunner RN - 06/03/2020 7:39 AM PDTPer chart review, [facility] stopp ed 10/2019 d/t cytopenia and has not been restarted as of yet. Update sent to MD Zhanna (pt's neph) regarding potassium level. ----- Message ----- From: Vimal Crowe MD Sent: 06/02/2020 1:08 PM PDT To: Cecille Brunner RN Is he just on FK now if yes then lets stay the course and can you please let renal know merlyn t K gone up- they had previosuly recommended low K diet and consideration of paritomer if K goes up- they may need to start that Thank you D ----- Message ----- From: Cecille Brunner RN Sent: 06/02/2020 10:34 AM PDT To: Vimal Crowe MD LTx 08/16/19 for ETOH. Target ~4. FK just increased to 3 mg qAM / 2 mg qPM on 05/24/20. documented in this encou nter Plan of [...] Rd | | | | | | [place], [place] | | | | | | [address] | | | | | | [phone] | | | | | | | | +--------+ + + + + | 09/27/ | Telephone-S | Liver Transplant | Vimal Crowe MD | | | 2019 | cheduled | | [address] | | | | | | [address], | | | | | | [place] [address] | | | | | | [phone] | | | | | | | [...] Rd | | | | | | [place], [place] | | | | | | [address] | | | | | | [phone] | | | | | | | | +--------+ + + + + documented as of this encounter Visit Diagnoses Not on filedocumented in this encounter"
--- OUTSIDE RECORDS SUMMARY | ~2020-07-29 | XMS | Encounter Summary ---
Demographics + + + | Address | [address] | | | [place] [address] | + + + | Home Phone [...] + + + | Author | [facility] | + + + | Organization | [facility] | + + + | Address | Unknown | + + + | Phone | Unavailable | + + + Support + + + + + | Name | Relationship | Address | Phone | + + + + + | Doreen Manley | ECON | [address] | | | | | [place] | | | | | [address] | | + + + + + Care Team Providers + +------+ + | Care Fabric Stretcher Name | Role | Phone | + +------+ + | Sharon David MD | PCP | | + +------+ + Encounter Details +--------+ + + + + | Date | Type | Department | Care Team | Description | +--------+ + + + + | 05/26/ | Pharmacy | Liver Transplant | | | | 2020 | Visit | at [facility] [address] | | | | | [address] | | | | | | Physician's | | | | | | [place], 2nd floor | | | | | | [place], [place] | | | | | | [address] | | | | | | [phone] | | | +--------+ + + + [...] Rd | | | | | | [place], [place] | | | | | | [address] | | | | | | [phone] | | | | | | | | +--------+ + + + + | 09/27/ | Telephone-S | Liver Transplant | Vimal Crowe MD | | | 2019 | [place] | | [address] | | | | | | [facility] [place], | | | | | | [place] [address] | | | | | | [phone] | | | | | | | [address] | | | | | | [place], [place] | | | | | | [address] | | | | | | [phone] | | | | | | | | +--------+ + + + + documented as of this encounter Visit Diagnoses Not on filedocumented in this encounter"
--- OUTSIDE RECORDS SUMMARY | ~2020-07-29 | XMS | Encounter Summary ---
Demographics + + + | Address | [address] | | | [place] [address] | + + + | Home Phone | | + + + | Preferred Language | Unknown | + + + | Marital Status | Single | + + + | Presybeterian Affiliation | NON | + + + [...] [place] | | | | | [address] | | + + + + + Care Team Providers + +------+ + | Care Auricular Therapist Name | Role | Phone | + +------+ + | Sharon David MD | PCP | | + +------+ + Encounter Details +--------+ + + + + | Date | Type | Department | Care Team | Description | +--------+ + + + + | 09/07/ | Pharmacy | Outpatient Retail | | | | 2018 | Visit | Clinic Pharmacy | | | | | | [address] | | | | | | [place], [place] | | | | | | [address] | | | | | | [phone] | | | +--------+ + + + [...] Rd | | | | | | [place], [place] | | | | | | [address] | | | | | | [phone] | | | | | | | | +--------+ + + + + | 09/27/ | Telephone-S | Liver Transplant | Vimal Crowe MD | | | 2019 | cheduled | | [address] | | | | | | [facility] [place], | | | | | | [place] [address] | | | | | | [phone] | | | | | | | [address] Rd | | | | | | [place], [place] | | | | | | [address] | | | | | | [phone] | | | | | | | | +--------+ + + + + documented as of this encounter Visit Diagnoses Not on filedocumented in this encounter"
--- OUTSIDE RECORDS SUMMARY | ~2020-07-29 | XMS | Encounter Summary ---
Demographics + + + | Address | [address] | | | [place] [address] | + + + | Home Phone [...] [place] | | | | | [address] | | + + + + + Care Team Providers + +------+ + | Care Software Consultant Name | Role | Phone | + +------+ + | Sharon David MD | PCP | | + +------+ + Encounter Details +--------+--------+ + + + | Date | Type | Department | Care Team | Description | +--------+--------+ + + + | 04/21/ | Travel | | | | | [...] | | 2019 | [facility] | | [address] | | | | | | [address] | | | | | | [place], [place] | | | | | | [address] | | | | | | [phone] | | | | | | | | +--------+ + + + + | 09/27/ | Telephone-S | Liver Transplant | Vimal Crowe MD | | | 2019 | cheduled | | [address] | | | | | | [address], | | | | | | [place] [address] | | | | | | [phone] | | | | | | | [address] | | | | | | [place] | | | | | | [address] | | | | | | [phone] | | | | | | | | +--------+ + + + + documented as of this encounter Visit Diagnoses Not on filedocumented in this encounter"
--- OUTSIDE RECORDS SUMMARY | ~2020-07-29 | XMS | Encounter Summary ---
Demographics + + + | Address | [address] | | | [place] [address] | + + + | Home Phone [...] [place] | | | | | [address] | | + + + + + Care Team Providers + +------+ + | Care Surgical Device Sales Representative Name | Role | Phone | + +------+ + | Sharon David MD | PCP | | + +------+ + Encounter Details +--------+------+ + + + | Date | Type | Department | Care Team | Description | +--------+------+ + + + | 09/07/ | Lab | [facility] at [facility] | | Liver transplant | | 2019 | | [address] | | status ([facility]); [facility] | | | | Loop Physician's | | (acute kidney | | | | Pavilion, 3rd floor | | injury) ([facility]) | | | | [place], [place] | | | | | | [address] | | | | | | [phone] | | | +--------+------+ + + + [...] | 2019 | [place] | | [address] | | | | | | [address] | | | | | | [place], [place] | | | | | | [address] | | | | | | [phone] | | | | | | | | +--------+ + + + + | 09/27/ | Telephone-S | Liver Transplant | Vimal Crowe MD | | | 2019 | [place] | | [address] | | | | | | [address], | | | | | | [place] [address] | | | | | | [phone] | | | | | | | [...] Rd | | | | | | [place], [place] | | | | | | [address] | | | | | | [phone] | | | | | | | | +--------+ + + + + documented as of this encounter Procedures + +--------+ + + + | Procedure Name | Priori | Date/Time | Associated Diagnosis | Comments | | | ty | | | | + +--------+ + + + | CBC AND AUTO DIFF | Routin | 09/07/2019 | Liver transplant | Results for this | | | e | 8:57 AM | status (HCC) | procedure are in the | | | | PST | | results section. | + +--------+ + + + | CBC, WITH | Routin | 09/07/2019 | Liver transplant | Results for this | | DIFFERENTIAL | e | 8:57 AM | status (HCC) | procedure are in the | | | | PST | | results section. | + +--------+ + + + | COMPLETE METABOLIC | Routin | 09/07/2019 | Liver transplant | Results for this | | SET | e | 8:57 AM | status (HCC) | procedure are in the | | (NA,K,CL,CO2,BUN,CRE | | PST | | results section. | | AT,GLUC,CA,AST,ALT,B | | | | | | KEV TOTAL,ALK | | | | | | PHOS,ALB,PROT TOTAL) | | | | | + +--------+ + + + | RENAL FUNCTION SET | Routin | 09/07/2019 | KAR (acute kidney | Results for this | | (NA,K,CL,CO2,BUN,CRE | e | 8:57 AM | injury) (HCC) | procedure are in the | | AT,GLUC,CA,PHOS,ALB | | PST | | results section. | | ) | | | | | + +--------+ + + + | TACROLIMUS, WHOLE | Routin | 09/07/2019 | Liver transplant | Results for this | | BLOOD | e | 8:57 AM | status (HCC) | procedure are in the | | | | PST | | results section. | + +--------+ + + + | BILIRUBIN DIRECT | Routin | 09/07/2019 | Liver transplant | Results for this | | | e | 8:57 AM | status (HCC) | procedure are in the | | | | PST | | results section. | + +--------+ + + + | URIC ACID, PLASMA | Routin | 09/07/2019 | Liver transplant | Results for this | | | e | 8:57 AM | status (HCC) | procedure are in the | | | | PST | | results section. | + +--------+ + + + | MAGNESIUM, PLASMA | Routin | 09/07/2019 | Liver transplant | Results for this | | | e | 8:57 AM | status (HCC) | procedure are in the | | | | PST | | results section. | + +--------+ + + + documented in this encounter Results CBC AND AUTO DIFF (09/07/2019 8:57 AM PST) + + + + + + | Component | Value | Ref Range | Performed | Pathologist | | | | | At | Signature | + + + + + + | WHITE CELL | 4.57 | 3.50 - 10.80 | [facility] | | | COUNT | | K/cu mm | LABORATORY | | | | | | SERVICES, | | | | | | CORE | | + + + + + + | RED CELL | 2.59 (L) | 4.50 - 6.00 | [facility] | | | COUNT | | M/cu mm | LABORATORY | | | | | | SERVICES, | | | | | | CORE | | + + + + + + | HEMOGLOBIN | 8.3 (L) | 13.5 - 17.5 | [facility] | | | | | g/dL | LABORATORY | | | | | | SERVICES, | | | | | | CORE | | + + + + + + | HEMATOCRIT | 26.1 (L) | 41.0 - 53.0 % | [facility] | | | | | | LABORATORY | | | | | | SERVICES, | | | | | | CORE | | + + + + + + | MCV | 100.8 (H) | 80.0 - 100.0 fL | [facility] | | | | | | LABORATORY | | | | | | SERVICES, | | | | | | CORE | | + + + + + + | MCHC | 31.8 (L) | 32.0 - 36.0 | [facility] | | | | | g/dL | LABORATORY | | | | | | SERVICES, | | | | | | CORE | | + + + + + + | RDW SD | 65.6 (H) | 35.1 - 46.3 fL | [facility] | | | | | | LABORATORY | | | | | | SERVICES, | | | | | | CORE | | + + + + + + | PLATELET | 138 (L) | 150 - 400 K/cu | [facility] | | | COUNT | | mm | LABORATORY | | | | | | SERVICES, | | | | | | CORE | | + + + + + + | MPV | 8.9 (L) | 9.7 - 12.3 fL | [facility] [...] + + + + | NEUTROPHIL | 70.6 (H) | 50.0 - 70.0 % | [facility] | | | % | | | LABORATORY | | | | | | SERVICES, | | | | | | CORE | | + + + + + + | LYMPHOCYTE | 19.9 | 18.0 - 42.0 % | [facility] | | | % | | | LABORATORY | | | | | | SERVICES, | | | | | | CORE | | + + + + + + | MONOCYTE % | 6.8 | 3.5 - 9.0 % | [facility] | | | | | | LABORATORY | | | | | | SERVICES, | | | | | | CORE | | + + + + + + | EOS % | 0.7 (L) | 1.0 - 3.0 % | [facility] | | | | | | LABORATORY | | | | | | SERVICES, | | | | | | CORE | | + + + + + + | BASO % | 1.3 | 0.0 - 2.0 % | [facility] | | | | | | LABORATORY | | | | | | SERVICES, | | | | | | CORE | | + + + + + + | IG% | 0.7 | 0.0 - 1.0 % | [facility] | | | | | | LABORATORY | | | | | | SERVICES, | | | | | | CORE | | + + + + + + | NEUTROPHIL | 3.23 | 1.80 - 7.70 | [facility] | | | # | | K/cu mm | LABORATORY | | | | | | SERVICES, | | | | | | CORE | | + + + + + + | LYMPHOCYTE | 0.91 (L) | 1.00 - 4.80 | [facility] | | | # | | K/cu mm | LABORATORY | | | | | | SERVICES, | | | | | | CORE | | + + + + + + | MONOCYTE # | 0.31 | 0.10 - 0.90 | [facility] | | | | | K/cu mm | LABORATORY | | | | | | SERVICES, | | | | | | CORE | | + + + + + + | EOS # | 0.03 | 0.00 - 0.50 | [facility] | | | | | K/cu mm | LABORATORY | | | | | | SERVICES, | | | | | | CORE | | + + + + + + | BASO # | 0.06 | 0.00 - 0.10 | [facility] | | | | | K/cu mm | LABORATORY | | | | | | SERVICES, | | | | | | CORE | | + + + + + + | IG# | 0.03 | 0.00 - 0.10 | [...] | + + + + + | [facility] | [address] | [place] [address] | | | SERVICES, CORE | [address] | | | + + + + + RENAL FUNCTION SET (NA,K,CL,CO2,BUN,CREAT,GLUC,CA,PHOS,ALB ) (09/07/2019 8:57 AM PST) + + + + + + | Component | Value | Ref Range | Performed | Pathologist | | | | | At | Signature | + + + + + + | GLUCOSE, | 63 (L) | 70 - 99 mg/dL | [facility] | | | PLASMA | | | LABORATORY | | | (LAB) | | | SERVICES, | | | | | | CORE | | + + + + + + | BUN, PLASMA | 31 (H) | 6 - 20 mg/dL | [facility] | | | (LAB) | | | LABORATORY | | | | | | SERVICES, | | | | | | CORE | | + + + + + + | CREATININE | 1.68 (H) | 0.70 - 1.30 | [facility] | | | PLASMA | | mg/dL | LABORATORY | | | (LAB) | | | SERVICES, | | | | | | CORE | | + + + + + + | EGFR | 52 (L) | >60 mL/min | [facility] | | | - | | | LABORATORY | | | [place] | | | SERVICES, | | | | | | CORE | | + + + + + + | EGFR NON | 43 (L) | >60 mL/min | [facility] | | | -COREY | | | LABORATORY | | | [facility] | | | SERVICES, | | | | | | CORE | | + + + + + + | SODIUM, | 139 | 136 - 145 | [facility] | | | PLASMA | | mmol/L | LABORATORY | | | (LAB) | | | SERVICES, | | | | | | CORE | | + + + + + + | POTASSIUM, | 4.3 | 3.4 - 5.0 | [facility] | | | PLASMA | | mmol/L | LABORATORY | | | (LAB) | | | SERVICES, | | | | | | CORE | | + + + + + + | CHLORIDE, | 106 | 97 - 108 mmol/L | [facility] | | | PLASMA | | | LABORATORY | | | (LAB) | | | SERVICES, | | | | | | CORE | | + + + + + + | TOTAL CO2, | 29 | 21 - 32 mmol/L | [facility] | | | PLASMA | | | LABORATORY | | | (LAB) | | | SERVICES, | | | | | | CORE | | + + + + + + | CALCIUM, | 8.6 | 8.6 - 10.2 | [facility] | | | PLASMA | | mg/dL | LABORATORY | | | (LAB) | | | SERVICES, | | | | | | CORE | | + + + + + + | CALCIUM(ALB | 8.8 | 8.6 - 10.2 | [facility] | | | CORRECTED) | | mg/dL | LABORATORY | | | | | | SERVICES, | | | | | | CORE | | + + + + + + | ALBUMIN, | 3.7 | 3.5 - 4.7 g/dL | [facility] | | | PLASMA | | | LABORATORY | | | (LAB) | | | SERVICES, | | | | | | CORE | | + + + + + + | PHOSPHORUS, | 4.1 | 2.4 - 4.7 mg/dL | [facility] [...] + + + | ANION GAP | 4 | 4 - 11 mmol/L | [facility] | | | | | | LABORATORY | | | | | | SERVICES, | | | | | | CORE | | + + + + + + | ANION | 4 | 4 - 11 mmol/L | [facility] [...] MDRD equation recommended by the National | [facility] | | Kidney Disease Education Program. Estimated GFR Interpretive | LABORATORY | | Information: <60 mL/min/1.73 sq m Chronic Kidney | SERVICES, [facility] | | Disease <15 mL/min/1.73 sq m [...] | + + + + + | [facility] | [address] | [place] [address] | | | ARTIS TAYLOR | [address] | | | + + + + + URIC ACID, PLASMA (09/07/2019 8:57 AM PST) + +-------+ + + + | Component | Value | Ref Range | Performed | Pathologist | | | | | At | Signature | + +-------+ + + + | URIC ACID, | 7.5 | 3.7 - 8.0 mg/dL | [facility] [...] + + | [facility] | [address] | [place] [address] | | | SERVICES, CORE | [address] | | | + + + + + TACROLIMUS, WHOLE BLOOD (09/07/2019 8:57 AM PST) + +-------+ + + + | Component | Value | Ref Range | Performed | Pathologist | | | | | At | Signature | + +-------+ + + + | TACROLIMUS | 5.2 | 5.0 - 15.0 | [facility] | [...] | Test performed by immunoassay using Palafox Tanning Drum Operator i2000. . | [facility] | | Samples [...] + + | [facility] | [address] | [place] [address] | | | SERVICES, SPECIAL | [address] | | | | IMM + COAG | | | | + + + + + BILIRUBIN DIRECT (09/07/2019 8:57 AM PST) + +---------+ + + + | Component | Value | Ref Range | Performed | Pathologist | | | | | At | Signature | + +---------+ + + + | BILIRUBIN | 0.5 (H) | 0.0 - 0.3 mg/dL | [facility] [...] + + | [facility] | [address] | [place] [address] | | | SERVICES, CORE | [address] | | | + + + + + MAGNESIUM, PLASMA (09/07/2019 8:57 AM PST) + +---------+ + + + | Component | Value | Ref Range | Performed | Pathologist | | | | | At | Signature | + +---------+ + + + | MAGNESIUM,P | 1.4 (L) | 1.6 - 2.6 mg/dL | [facility] [...] | + + + + + | [facility] | [address] | [place] [address] | | | SERVICES, CORE | [address] | | | + + + + + COMPLETE METABOLIC SET (NA,K,CL,CO2,BUN,CREAT,GLUC,CA,AST,ALT,BILI TOTAL,ALK PHOS,ALB,PROT TOTAL) (09/07/2019 8:57 AM PST) + + + + + + | Component | Value | Ref Range | Performed | Pathologist | | | | | At | Signature | + + + + + + | GLUCOSE, | 63 (L) | 70 - 99 mg/dL | [facility] | | | PLASMA | | | LABORATORY | | | (LAB) | | | SERVICES, | | | | | | CORE | | + + + + + + | BUN, PLASMA | 31 (H) | 6 - 20 mg/dL | [facility] | | | (LAB) | | | LABORATORY | | | | | | SERVICES, | | | | | | CORE | | + + + + + + | CREATININE | 1.68 (H) | 0.70 - 1.30 | [facility] | | | PLASMA | | mg/dL | LABORATORY | | | (LAB) | | | SERVICES, | | | | | | CORE | | + + + + + + | EGFR | 52 (L) | >60 mL/min | [facility] | | | - | | | LABORATORY | | | [place] | | | SERVICES, | | | | | | CORE | | + + + + + + | EGFR NON | 43 (L) | >60 mL/min | [facility] | | | -COREY | | | LABORATORY | | | [facility] | | | SERVICES, | | | | | | CORE | | + + + + + + | SODIUM, | 139 | 136 - 145 | [facility] | | | PLASMA | | mmol/L | LABORATORY | | | (LAB) | | | SERVICES, | | | | | | CORE | | + + + + + + | POTASSIUM, | 4.3 | 3.4 - 5.0 | [facility] | | | PLASMA | | mmol/L | LABORATORY | | | (LAB) | | | SERVICES, | | | | | | CORE | | + + + + + + | CHLORIDE, | 106 | 97 - 108 mmol/L | [facility] | | | PLASMA | | | LABORATORY | | | (LAB) | | | SERVICES, | | | | | | CORE | | + + + + + + | TOTAL CO2, | 29 | 21 - 32 mmol/L | [facility] | | | PLASMA | | | LABORATORY | | | (LAB) | | | SERVICES, | | | | | | CORE | | + + + + + + | CALCIUM, | 8.6 | 8.6 - 10.2 | [facility] | | | PLASMA | | mg/dL | LABORATORY | | | (LAB) | | | SERVICES, | | | | | | CORE | | + + + + + + | CALCIUM(ALB | 8.8 | 8.6 - 10.2 | [facility] | | | CORRECTED) | | mg/dL | LABORATORY | | | | | | SERVICES, | | | | | | CORE | | + + + + + + | BILIRUBIN | 0.8 | 0.3 - 1.2 mg/dL | [facility] | | | TOTAL | | | LABORATORY | | | | | | SERVICES, | | | | | | CORE | | + + + + + + | TOTAL | 6.0 (L) | 6.4 - 8.2 g/dL | [facility] | | | PROTEIN, | | | LABORATORY | | | PLASMA | | | SERVICES, | | | (LAB) | | | CORE | | + + + + + + | ALBUMIN, | 3.7 | 3.5 - 4.7 g/dL | [facility] | | | PLASMA | | | LABORATORY | | | (LAB) | | | SERVICES, | | | | | | CORE | | + + + + + + | ALK PHOS | 50 (L) | 53 - 128 U/L | [facility] | | | | | | LABORATORY | | | | | | SERVICES, | | | | | | CORE | | + + + + + + | AST(SGOT) | 7 | <=41 U/L | [facility] | | | | | | LABORATORY | | | | | | SERVICES, | | | | | | CORE | | + + + + + + | ALT (SGPT) | 17 | <=60 U/L | [facility] | | | | | | LABORATORY | | | | | | SERVICES, | | | | | | CORE | | + + + + + + | ANION GAP | 4 | 4 - 11 mmol/L | [facility] | | | | | | LABORATORY | | | | | | SERVICES, | | | | | | CORE | | + + + + + + | ANION | 4 | 4 - 11 mmol/L | [facility] [...] MDRD equation recommended by the National | [facility] | | Kidney Disease Education Program. Estimated [...] | + + + + + | [facility] | [address] | [place] [address] | | | SERVICES, CORE | [address] | | | + + + + + documented in this encounter Visit Diagnoses + + | Diagnosis | + + | Liver transplant status (HCC) | + + | KAR (acute kidney injury) (HCC) Acute kidney failure, unspecified | + + documented in this encounter"
--- OUTSIDE RECORDS SUMMARY | ~2020-07-29 | XMS | Encounter Summary ---
Demographics + + + | Address | [address] | | | [place] [address] | + + + | Home Phone [...] [place] | | | | | [address] | | + + + + + Care Team Providers + +------+ + | Care Supervisor Slate Splitting Name | Role | Phone | + +------+ + | Sharon David MD | PCP | | + +------+ + Encounter Details +--------+ + + + + | Date | Type | Department | Care Team | Description | +--------+ + + + + | 08/26/ | Pharmacy | Outpatient Retail | | | | 2019 | Visit | [facility] | | | | | | [address] | | | | | | [address] [place], [place] | | | | | | [address] | | | | | | [phone] | | | +--------+ + + + [...] Rd | | | | | | [place], [place] | | | | | | [address] | | | | | | [phone] | | | | | | | | +--------+ + + + + | 09/27/ | Telephone-S | Liver Transplant | Vimal Crowe MD | | | 2019 | c[place] | | [address] | | | | | | [facility] [place], | | | | | | [place] [address] | | | | | | [phone] | | | | | | | [...] [address] | | | | | | [place], [place] | | | | | | [address] | | | | | | [phone] | | | | | | | | +--------+ + + + + documented as of this encounter Visit Diagnoses Not on filedocumented in this encounter"
--- OUTSIDE RECORDS SUMMARY | ~2020-07-29 | XMS | Encounter Summary ---
Demographics + + + | Address | [address] | | | [place] [address] | + + + | Home Phone [...] | | | | | [place] | | | | | [address] | | + + + + + Care Team Providers + +------+ + | Care Coat Agent Name | Role | Phone | + +------+ + | Sharon David MD | PCP | | + +------+ + Encounter Details +--------+ + + + + | Date | Type | Department | Care Team | Description | +--------+ + + + + | 08/29/ | Pharmacy | Outpatient Retail | | | | 2019 | Visit | Clinic Pharmacy | | | | | | [address] | | | | | | [address] [place], [place] | | | | | | [address] | | | | | | [phone] | | | +--------+ + + + [...] Rd | | | | | | [place], [place] | | | | | | [address] | | | | | | [phone] | | | | | | | | +--------+ + + + + | 09/27/ | Telephone-S | Liver Transplant | Vimal Crowe MD | | | 2019 | cheduled | | [address] | | | | | | [facility] [place], | | | | | | [place] [address] | | | | | | [phone] | | | | | | | [...] [address] | | | | | | [place], [place] | | | | | | [address] | | | | | | [phone] | | | | | | | | +--------+ + + + + documented as of this encounter Visit Diagnoses Not on filedocumented in this encounter"
--- OUTSIDE RECORDS SUMMARY | ~2020-07-29 | XMS | Encounter Summary ---
Demographics + + + | Address | [address] | | | [place] [address] | + + + | Home Phone | | + + + | Preferred Language | Unknown | + + + | Marital Status | Single | + + + | Taoism Affiliation | NON | + + + [...] [place] | | | | | [address] | | + + + + + Care Team Providers + +------+ + | Care Graining Press Operator Name | Role | Phone | + +------+ + | Sharon David MD | PCP | | + +------+ + Encounter Details +--------+ + + + + | Date | Type | Department | Care Team | Description | +--------+ + + + + | 05/21/ | Pharmacy | Outpatient Retail | | | | 2019 | Visit | Clinic Pharmacy | | | | | | [address] | | | | | | [address] [place], [place] | | | | | | [address] | | | | | | [phone] | | | +--------+ + + + [...] Rd | | | | | | [place], [place] | | | | | | [address] | | | | | | [phone] | | | | | | | | +--------+ + + + + | 09/27/ | Telephone-S | Liver Transplant | Vimal Crowe MD | | | 2019 | cheduled | | [address] | | | | | | [place], | | | | | | [place] [address] | | | | | | [phone] | | | | | | | [...] Rd | | | | | | [place], [place] | | | | | | [address] | | | | | | [phone] | | | | | | | | +--------+ + + + + documented as of this encounter Visit Diagnoses Not on filedocumented in this encounter"
--- OUTSIDE RECORDS SUMMARY | ~2020-07-29 | XMS | Encounter Summary ---
Demographics + + + | Address | [address] | | | [place] [address] | + + + | Home Phone | | + + + | Preferred Language | Unknown | + + + | Marital Status | Single | + + + | Anglican Affiliation | NON | + + + | Race | White | + + + | Ethnic Group | Not or | + + + Author + + + | Author | [facility] | + + + | Organization | [facility] | + + + | Address | Unknown | + + + | Phone | Unavailable | + + + Support + + + + + | Name | Relationship | Address | Phone | + + + + + | Doreen Manley | ECON | [address] | | | | | [place] | | | | | [address] | | + + + + + Care Team Providers + +------+ + | Care Post Graduate Internship Name | Role | Phone | + +------+ + | Sharon David MD | PCP | | + +------+ + Encounter Details +--------+ + + + + | Date | Type | Department | Care Team | Description | +--------+ + + + + | 04/01/ | Flight Operation Coordinator | Clinical | Cecille Brunner RN | Liver replaced by | | 2020 | | Transplant Services | [address] | transplant (HCC) | | | | [address] | [place], | (Primary Dx) | | | | [place], | [place] [address] | | | | | [place] [address] | | | | | | [phone] | | | +--------+ + + + [...] | | 2019 | [place] | | [address] | | | | | | [address] | | | | | | [place], [place] | | | | | | [address] | | | | | | [phone] | | | | | | | | +--------+ + + + + | 09/27/ | Telephone-S | Liver Transplant | Vimal Crowe MD | | | 2019 | cheduled | | [address] | | | | | | [address], | | | | | | [place] [address] | | | | | | [phone] | | | | | | | | +--------+ + + + + | 10/03/ | Appointment | Cardiology | | | | 2019 | | | | | +--------+ + + + + | 10/03/ | Office | Cardiology | Cyril Samuel | | | 2019 | Visit | | MD Patricia [address] | | | | | | [address] | | | | | | [place], [place] | | | | | | [address] | | | | | | [phone] | | | | | | | | +--------+ + + + + + +---------+--------+ + + | Name | Type | Priori | Associated Diagnoses | Order Schedule | | | | ty | | | + +---------+--------+ + + | BONE DENSITOMETRY | Imaging | Routin | Liver replaced by | Expected: | | | | e | transplant (HCC) | 04/01/2020, Expires: | | | | | | 05/01/2021 | + +---------+--------+ + + documented as of this encounter Visit Diagnoses + + | Diagnosis | + + | 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
--- OUTSIDE RECORDS SUMMARY | ~2020-07-29 | XMS | Encounter Summary ---
Demographics + + + | Address | [address] | | | [place] [address] | + + + | Home Phone [...] [place] | | | | | [address] | | + + + + + Care Team Providers + +------+ + | Care Structural Steel Engineer Name | Role | Phone | + +------+ + | Sharon David MD | PCP | | + +------+ + Reason for Referral Diagnostic Testing (Routine) + +--------+ + + + + | Status | Reason | Specialty | Diagnoses / | Referred By | Referred To | | | | | Procedures | Contact | Contact | + +--------+ + + + + | New Request | | Cardiology | Diagnoses | Jimmie, | [place] | | | | | Abnormal | Cyril Gomez, | Health & | | | | | echocardiogr | [address] | [employer] | | | | | am | Neftali Grace | [address] | | | | | Procedures | [address] | [address] | | | | | TRANSTHORACI | [place], [place] | ROAD | | | | | C | [address] | [place], [place] | | | | | ECHOCARDIOGR | Phone: | [phone] | | | | | AM, ADULT | [phone] | Phone: | | | | | | Fax: | [phone] | | | | | | [phone] | | + +--------+ + + + + Reason for Visit + + + | Reason | Comments | + + + | Follow-up visit | | + + + | Chest pain | intermittent, more frequent, sharp pain last for 30 seconds to 1 | | | minute | + + + | Headache | mostly right side | + + + Consultation (Urgent) +--------+--------+ + + + + | Status | Reason | Specialty | Diagnoses / | Referred By | Referred To | | | | | Procedures | Contact | Contact | +--------+--------+ + + + + | Closed | | Cardiology | Diagnoses | Kathrin, | [place], | | | | | Abnormal | Laurita E, | Cyril Gomez, | | | | | findings on | MD [address] | MD [address] | | | | | diagnostic | [address] | Neftali Grace | | | | | imaging of | [facility] [place] | Moises Oliveiar | | | | | heart and | [address] | [place], [place] | | | | | coronary | Phone: | [phone] | | | | | circulation | [phone] | Phone: | | | | | Procedures | Fax: | [phone] | | | | | ND EST | [phone] | Fax: | | | | | PATIENT | | [phone] | | | | | LEVEL V | | | +--------+--------+ + + + + Encounter Details +--------+---------+ + + + | Date | Type | Department | Care Team | Description | +--------+---------+ + + + | 07/28/ | Office | Cardiology Cardiac | Cyril Samuel | Abnormal | | 2020 | Visit | Transplant at [facility] | MD Patricia [address] [facility] | echocardiogram | | | | [address] | [address] | (Primary Dx) | | | | Lolita for [facility] | [facility] [place] | | | | | and Healing, | [address] | | | | | [facility] | [phone] | | | | | Floor [place], [place] | | | | | | [address] | | | | | | [phone] | | | +--------+---------+ + + + [...] + + + + | Height | - | - | | + [...] + + documented as of this encounter Patient Instructions Patient Instructions Cyril Samuel MD - 07/28/2020 11:30 AM PDT- start hydralazine 2 5 mg po TID, report blood pressures trends to [facility] clinic next week - home heart rhythm monitor will be sent to you - general labs today - return to clinic in 2 months with repeat echo at the time of visit. documented in this encounter Progress Notes Cyril Samuel MD - 07/28/2020 11:30 AM PDT Advanced heart failure clinic note Steffen Duran is a 55 y.o. male who is referred by Sharon David for cardia c pre-liver txp evaluation. 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 Patient underwent comprehensive cardiac evaluation early 2018 through the general cardiolog y clinic (Dr. Goncalves). Routine echo in February 2019 had indicated normal biventricular systoli c function, only mild diastolic dysfunction, and no hemodynamically significant valvular dis ease. No further evidence for elevated PA pressures (RSVP 32 mmHg) or significant TR as evid enced previously on outside echo in 2018. Stress echo without evidence for inducible ischemi a, but testing complicated by SVT necessitating inpatient admission and initiation of metopr olol xl. Patient was only able to perform up to 4 METs. No smoking or CAD family hx. additio araceli, cardiac MRI with normal systolic and diastolic parameters. However, with evidence fo r myocardial iron overload (T2* decay 7.7-12.3 ms) consistent with increased per-operative r isks. After the initial index visit with me patient did not show up for his follow-up visitations . His liver transplant complicated by transient dialysis requirements and atrial tachycardi a prompting the initiation of amiodarone on top of metoprolol under the guidance of the [facility] cardiology consult service. In regard to his iron overload syndrome, patient has not re quired any additional blood transfusions since last summer. Early in 2019 patient developed new heart failure symptoms and echo performed at local card iology practice indicated new moderate to severe LV dysfunction and remodeling with at least moderate mitral and tricuspid regurgitation. Actual images are currently not available to me. Patient was initiated on Isordil on top of his low-dose metoprolol succinate regimen. Patient was not considered to be a candidate for GABO in addition of spironolactone based on his advanced chronic kidney disease. Patient denies any anginal symptoms or ongoing alcohol abuse. Sleep study were reportedly negative. Blood pressure response clearly continues to be an issue with systolic blood pressures in the 150s today. Past Medical History: Diagnosis Date Cirrhosis (HCC) CKD (chronic kidney disease) Past Surgical History: Procedure Laterality Date LEG SURGERY Social History Tobacco Use Smoking status: Never Smoker Smokeless tobacco: Former User Types: Chew Substance Use Topics Alcohol use: No Frequency: Never Drug use: No Social History Social History Narrative Not on file Family History Problem Relation Liver cancer Neg Hx Family Status Relation Name Status Mo Alive Neg Hx (Not Specified) Current Outpatient Medications Medication Sig Alcohol Swabs topical pads, medicated Apply 1 each to affected area five times daily. U se as directed. amiodarone 200 mg oral tablet Take 1 tablet by mouth once daily. apixaban 2.5 mg oral tablet Take 2.5 mg by mouth two times daily. aspirin EC 325 mg oral tablet,delayed release (DR/EC) Take 1 tablet by mouth once daily . BASAGLAR KWIKPEN U-100 INSULIN 100 unit/mL (3 mL) subcutaneous insulin pen Inject 10 Un its under the skin (SUBC) once daily at bedtime. Indications: type 2 diabetes mellitus (Steph ent not taking: Reported on 07/28/2020) Blood Sugar Diagnostic (FREESTYLE LITE STRIPS) miscellaneous (misc) strip Use [address] rip to check blood sugar two times daily before meals. Indications: type 2 diabetes mellitus Blood-Glucose Meter (FREESTYLE LITE METER) miscellaneous (misc) kit Use as directed. Us e as directed. calcium-vitamin D 500 mg(1,250mg) -200 unit oral tablet Take 1 tablet by mouth once keren ly. diclofenac 1 % topical gel Apply to affected area as needed. fludrocortisone 0.1 mg oral tablet Take 1 tablet by mouth once daily. glimepiride 1 mg oral tablet Take 1 tablet by mouth every morning. Check your blood glu cose every AM before eating and every PM before bed. If your AM CBG (morning blood sugar) is > 140 mg/dL or PM CBG (evening blood sugar) >180 mg/dL increase dose to 2 tabs every AM and contact your PCP. Indications: type 2 diabetes mellitus (Patient not taking: Reported on ) glimepiride 2 mg oral tablet Take 1 tablet by mouth once daily with breakfast. (Patient not taking: Reported on 07/28/2020) insulin aspart U-100 100 unit/mL (3 mL) subcutaneous insulin pen Inject per sliding sca le four times daily. Max daily dose 40 units. For blood sugar between 151-200: 2 units; 201-250: 4 units; 251-300: 6 units 301-350: 8 units. >350: 10 units. (Short Acting Insulin). (Patient taking differently: Inje ct 5 Units under the skin (SUBC) four times daily. ) insulin glargine 100 unit/mL (3 mL) subcutaneous insulin pen Inject 20 Units under the skin (SUBC) once daily at bedtime. (Long acting insulin). Insulin Hamilton (Disposable) (COMFORT EZ PEN NEEDLES) 31 gauge x 5/16" miscellaneous (m [facility]) needle Use as directed for 5 insulin injections per day. isosorbide dinitrate 20 mg oral tablet Take 20 mg by mouth three times daily before farnaz ls. lancets (FREESTYLE LANCETS) 28 gauge miscellaneous (mis) [facility] Test blood sugar four ti mes daily (before each meal and at bedtime). Indications: type 2 diabetes mellitus magnesium oxide 250 mg elemental oral tablet Take 2 tablets by mouth two times daily. ( Patient taking differently: Take 1,200 mg elemental by mouth two times daily. ) metoprolol succinate 25 mg oral tablet extended release 24 hr Take one tablet by mouth once daily for 90 days mirtazapine (REMERON) 30 mg oral tablet Take 1 tablet by mouth once daily at bedtime. ( Patient not taking: Reported on 07/28/2020) mycophenolate (CELLCEPT) 250 mg oral capsule Take 2 capsules by mouth two times daily. Take with food. patiromer 8.4 gram oral powder in packet Mix 1 packet and take orally three times weekl y (on Saturday, Saturday and Saturday). sodium polystyrene (KAYEXALATE) oral powder Take 30 grams now and 30 grams tonight Joceline cations: high levels of potassium in the blood (Patient not taking: Reported on 07/28/2020) tacrolimus 0.5 mg oral capsule Take 6 capsules in the morning and 4 capsules in the luis manuel sanjeev. Indications: liver transplant rejection prevention (Patient taking differently: Take 2 mg in the morning and 1 mg in the evening. Indications: liver transplant rejection preventi on Indications: liver transplant rejection prevention) No current facility-administered medications for this visit. Allergies: Doxycycline Exercise Tolerance: Yes Review of systems: Please see HPI and PMHx.Comprehensive review of systems otherwise negat prudence by interview and detailed patient questionnaire. PE: General: alert and cooperative HEENT: Normal Neck: Neck supple. No adenopathy. Thyroid symmetric & normal size. no jugular venous disten tion. Cardiac: positive findings: bradycardia. No M/R/G Extremities: Anasarca. GI: distended Respiratory: negative. Musculoskeletal: Spine ROM normal. Muscular strength intact. Neuro: negative. Skin: negative and positives: erythema - abdomen, buttocks, upper legs and lower legs, ja undice Psych: non focal Vitals: BP 151/75 (BP Location: Left upper arm, Patient Position: Sitting) | Pulse 60 | Temp 35.9 C (96.6 F) (Forehead) | Resp 16 | Wt 89 kg (196 lb 3.2 oz) | SpO2 100% | B IN 27.36 kg/m | BSA 2.11 m Labs: Lab Results Component Value Date WBC 4.4 07/25/2020 HB 14.2 07/25/2020 HCT 40.9 07/25/2020 PLT 87 07/25/2020 MCV 91.6 11/16/2019 RDW 47.8 11/16/2019 NA 140 07/25/2020 K 5.1 07/25/2020 CL 100 07/25/2020 BICARB 27 07/25/2020 BUN 42 07/25/2020 CR 2.67 07/25/2020 GLU 226 07/25/2020 CA 9.9 07/25/2020 TSH 1.72 10/13/2019 Cardiac MRI 05/08 1. Normal left ventricular systolic function and mildly increased size. 2. Normal right ventricular systolic functio and mildly increased size. 3. No significant valvular disease. 4. Evidence for myocardial iron overload with prognostic relevance. The T2* decay of the le ft ventriuclar myocardium is between 7.7-12.3 ms which is below 20 ms and consistent with ir on deposition. Values above 20 ms are considered normal without evidence of myocardial iron deposition. The T2* decay of the liver is between 1.76-3.1 ms which is below 6.3 ms and consistent with iron deposition. Values above 6.3 ms are considered normal without evidence of hepatic iron deposition. 5. Cirrhotic appearance of the liver with enlarged spleen suggestive of sequelae of portal hypertension. Outside hospital event monitor 04/28/2020 Average heart rate 69. Rare PACs and PVCs. Multiple episodes of paroxysmal A. fib up to 4 hours. Outside hospital echo 03/18/2020 Moderately dilated left ventricle, 6.5 cm. Global moderate impaired systolic function EF 3 5%. Mildly dilated RV with impaired systolic function. Moderate mitral regurgitation, danny rely dilated left atrium. Moderate tricuspid regurgitation and moderate pulmonary hypertens ion. 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 #New onset systolic dysfunction after recent liver transplantation, NHYA class II - Unrevealing dobutamine stress echo within the last 12 months - degree of iron depositioning on recent cMR (T2 decay < 15 ms) does serve as risk marker f or per-operative cardiac MAZE (Transplant Direct. 2017; 4(7): e378), but would not expla in sudden systolic dysfunction months later. - Unable to uptitrate metoprolol succinate further based on current resting bradycardia. So would continue Isordil 20 mg p.o. 3 times daily and add hydralazine 25 mg p.o. 3 times mirtha y. Will need to uptitrate for goal MAPs closer to 60 mmHg. Once patient on dialysis we can transition to GABO inhibition. - diuretic management per liver/renal service. Patient remains on the brink of need for he modialysis p.o. - Repeat echo during follow-up in 2 months after several months of optimal guideline direct ed medical therapy, depending on LVEF trends will discuss next steps which include repeat is chemia assessment, repeat cardiac MRI, and/or primary prevention ICD. #Paroxysmal atrial tach and atrial fibrillation - decrease toprol xl from 50 to 25 mg po daily given underlying sinus bradycardia and monit or for SVT recurrence. - ZIO Patch to reevaluate frequency of supraventricular tachycardias. Ideally, would try t o avoid long-term amiodarone in this relatively young patient. # Dispo - f/u with me in clinic in 2 months with repeat echo Cyril Samuel MD Supervisor Audit [employer] [facility]erter Heart Failure and Heart Transplantation [facility] [place] [facility] [place] Gabino Huddleston M A - 07/28/2020 11:30 AM PDT Amiodarone Routing Tests: Due Every 6 months: Last TSH: Lab Results Component Value Date TSH 1.72 10/13/2019 Last LFT: Recent Labs 07/12/20 0952 07/19/20 1124 07/25/20 1149 AST 19 18 16 ALT 23 21 20 TBILI 0.5 0.5 0.5 AP 75 75 87 ALB 4.2 4.3 4.2 TP 6.6 6.7 6.9 Due Every 12 Months: Last EK10/24/19 Last CXR: 02/16/20 Yearly Eye Exam: 04/20/20 documented in this enc ounter Plan of Treatment +--------+ + + + + | Date | Type | Specialty | Care Team | Description | +--------+ + + + + | 08/08/ | Telephone-S | Nephrology | Angélica Chao, | | | 2019 | cheduled | | [address] | | | | | | [address] | | | | | | [place], [place] | | | | | | [address] | | | | | | [phone] | | | | | | | | +--------+ + + + + | 09/27/ | Telephone-S | Liver Transplant | Vimal Crowe MD | | | 2019 | cheduled | | [address] | | | | | | [address], | | | | | | [place] [address] | | | | | | [phone] | | | | | | | | +--------+ + + + + | 10/03/ | Appointment | Cardiology | | | | 2019 | | | | | +--------+ + + + + | 10/03/ | Office | Cardiology | Jimmie, Cyril | | | 2019 | Visit | | MD Patricia [address] [facility] | | | | | | [address] | | | | | | [place], [place] | | | | | | [address] | | | | | | [phone] | | | | | | | | +--------+ + + + + + +------+--------+ + + | Name | Type | Priori | Associated Diagnoses | Date/Time | | | | ty | | | + +------+--------+ + + | 12 LEAD ECG | ECG | Routin | Abnormal | 07/28/2020 12:25 PM | | | | e | echocardiogram | PDT | + +------+--------+ + + | HOME ENROLLMENT - | ECG | Routin | Abnormal | 07/28/2020 12:14 PM | | EXTENDED CARDIAC | | e | echocardiogram | PDT | | MONITOR (14 DAY) | | | | | + +------+--------+ + + + +------+--------+ + + | Name | Type | Priori | Associated Diagnoses | Order Schedule | | | | ty | | | + +------+--------+ + + | TRANSTHORACIC | ECG | Routin | Abnormal | Ordered: 07/28/2020 | | ECHOCARDIOGRAM, | | e | echocardiogram | | | ADULT | | | | | + +------+--------+ + + documented [...] + + documented in this encounter Results IRON AND TIBC (07/28/2020 12:47 PM PDT) [...] | + + + + + | [facility] | [address] | [place] [address] | | | SERVICES, CORE | PARK [...] and | 50 - 530 ng/mL | [facility] | | | | Female >18 years: [...] | + + + + + | [facility] | [address] | [place] [address] | | | ARTIS TAYLOR | MOISES OLIVEIRA | | | + + + + [...] + + | [facility] | [address] | [place] [address] | | | SERVICES, CORE | MOISES [...] SERVICES, | | | | | | [facility] | | | | | | HEALTH [...] | | | LABORATORY | | | [facility] | | | SERVICES, | | | [...] SERVICES, | | | | | | [facility] | | | | | | HEALTH [...] MDRD equation recommended by the National | [facility] | | Kidney Disease Education Program. Estimated [...] | + + + + + | [email or web address] | [address] | [place] [address] | | | SERVICES, [facility] | | | | | [facility] + HEALING | | | | + + + + + documented in this encounter Visit Diagnoses + + | Diagnosis | + + | Abnormal echocardiogram - Primary Nonspecific (abnormal) findings on radiological and | | other examination of other intrathoracic organs | + + documented in this encounter
--- OUTSIDE RECORDS SUMMARY | ~2020-07-29 | XMS | Encounter Summary ---
Demographics + + + | Address | [address] | | | [place] [address] | + + + | Home Phone | | + + + | Preferred Language | Unknown | + + + | Marital Status | Single | + + + | Protestant Affiliation | NON | + + + [...] [place] | | | | | [address] | | + + + + + Care Team Providers + +------+ + | Care Obstetrical Nurse Name | Role | Phone | + +------+ + | Sharon David MD | PCP | | + +------+ + Encounter Details +--------+ + + + + | Date | Type | Department | Care Team | Description | +--------+ + + + + | 09/16/ | Pharmacy | Outpatient Retail | | | | 2018 | Visit | Clinic Pharmacy | | | | | | [address] | | | | | | [place], [place] | | | | | | [address] | | | | | | [phone] | | | +--------+ + + + [...] Rd | | | | | | [place], [place] | | | | | | [address] | | | | | | [phone] | | | | | | | | +--------+ + + + + | 09/27/ | Telephone-S | Liver Transplant | Vimal Crowe MD | | | 2019 | cheduled | | [address] | | | | | | [facility] [place], | | | | | | [place] [address] | | | | | | [phone] | | | | | | | | +--------+ + + + + | 10/03/ | Appointment | Cardiology | | | | 2019 | | | | | +--------+ + + + + | 10/03/ | Office | Cardiology | Cyril Samuel | | | 2019 | Visit | | MD Patricia [address] | | | | | | [address] | | | | | | [place], [place] | | | | | | [address] | | | | | | [phone] | | | | | | | | +--------+ + + + + documented as of this encounter Visit Diagnoses Not on filedocumented in this encounter"
--- OUTSIDE RECORDS SUMMARY | ~2020-07-29 | XMS | Encounter Summary ---
Demographics + + + | Address | [address] | | | [place] [address] | + + + | Home Phone | | + + + | Preferred Language | Unknown | + + + | Marital Status | Single | + + + | Nondenominational Affiliation | NON | + + + [...] [place] | | | | | [address] | | + + + + + Care Team Providers + +------+ + | Care Managed Services Consultant Name | Role | Phone | + +------+ + | Sharon David MD | PCP | | + +------+ + Encounter Details +--------+ + + + + | Date | Type | Department | Care Team | Description | +--------+ + + + + | 06/06/ | Pharmacy | [facility] | | | | 2020 | Visit | [address] | | | | | | [address] | | | | | | [place] [address] | | | | | | [phone] | | | +--------+ + + + [...] Rd | | | | | | [place], [place] | | | | | | [address] | | | | | | [phone] | | | | | | | | +--------+ + + + + | 09/27/ | Telephone-S | Liver Transplant | Vimal Crowe MD | | | 2019 | cheduled | | [address] | | | | | | [address], | | | | | | [place] [address] | | | | | | [phone] | | | | | | | [...] Rd | | | | | | [place] | | | | | | [address] | | | | | | [phone] | | | | | | | | +--------+ + + + + documented as of this encounter Visit Diagnoses Not on filedocumented in this encounter"
--- OUTSIDE RECORDS SUMMARY | ~2020-07-29 | XMS | Encounter Summary ---
Demographics + + + | Address | [address] | | | [place] [address] | + + + | Home Phone [...] Author + + + | Author | [facility] | + + + | Organization | [facility] | + + + | Address | Unknown | + + + | Phone | Unavailable | + + + Support + + + + + | Name | Relationship | Address | Phone | + + + + + | Doreen Manley | ECON | [address] | | | | | [place] | | | | | [address] | | + + + + + Care Team Providers + +------+ + | Care Weaver Hand Loom Name | Role | Phone | + +------+ + | Sharon David MD | PCP | | + +------+ + Encounter Details +--------+ + + + + | Date | Type | Department | Care Team | Description | +--------+ + + + + | 09/21/ | Pharmacy | Outpatient Retail | | | | 2019 | Visit | Clinic Pharmacy | | | | | | [address] | | | | | | [place], [place] | | | | | | [address] | | | | | | [phone] | | | +--------+ + + + [...] Rd | | | | | | [place], [place] | | | | | | [address] | | | | | | [phone] | | | | | | | | +--------+ + + + + | 09/27/ | Telephone-S | Liver Transplant | Vimal Crowe MD | | | 2019 | cheduled | | [address] | | | | | | [facility] [place], | | | | | | [place] [address] | | | | | | [phone] | | | | | | | [...] [address] | | | | | | [place], [place] | | | | | | [address] | | | | | | [phone] | | | | | | | | +--------+ + + + + documented as of this encounter Visit Diagnoses Not on filedocumented in this encounter"
--- OUTSIDE RECORDS SUMMARY | ~2020-07-29 | XMS | Encounter Summary ---
Demographics + + + | Address | [address] | | | [place] [address] | + + + | Home Phone [...] Author | [facility] | + + + | Organization | [facility] | + + + | Address | Unknown | + + + | Phone | Unavailable | + + + Support + + + + + | Name | Relationship | Address | Phone | + + + + + | Doreen Manley | ECON | [address] | | | | | [place] | | | | | [address] | | + + + + + Care Team Providers + +------+ + | Care Exterior Work Helper Name | Role | Phone | + +------+ + | Sharon David MD | PCP | | + +------+ + Encounter Details +--------+ + + + + | Date | Type | Department | Care Team | Description | +--------+ + + + + | 06/24/ | MyChart | Nephrology & | Alicia Canchola, | Steffen Duran | | 2019 | Encounter | [facility] | DO [address] | Transplant-2 | | | | [address] | [facility] | | | | | [address] [facility] | [place], [place] | | | | | Shyann, [address] [place] [address] | [address] | | | | | [place], [place] | [phone] | | | | | [address] | | | | | | [phone] | | | +--------+ + + + [...] | | 2020 | [place] | | [address] | | | | | | [address] | | | | | | [place], [place] | | | | | | [address] | | | | | | [phone] | | | | | | | | +--------+ + + + + | 09/27/ | Telephone-S | Liver Transplant | Vimal Crowe MD | | | 2019 | [place] | | [address] | | | | | | [address], | | | | | | [place] [address] | | | | | | [phone] | | | | | | | | +--------+ + + + + | 10/03/ | Appointment | Cardiology | | | | 2019 | | | | | +--------+ + + + + | 10/03/ | Office | Cardiology | Cyril Samuel | | | 2019 | Visit | | MD Patircia [address] | | | | | | [address] | | | | | | [place], [place] | | | | | | [address] | | | | | | [phone] | | | | | | | | +--------+ + + + + documented as of this encounter Visit Diagnoses Not on filedocumented in this encounter"
--- OUTSIDE RECORDS SUMMARY | ~2020-07-29 | XMS | Encounter Summary ---
Demographics + + + | Address | [address] | | | [place] [address] | + + + | Home Phone | | + + + | Preferred Language | Unknown | + + + | Marital Status | Single | + + + | Gnosticist Affiliation | NON | + + + [...] [place] | | | | | [address] | | + + + + + Care Team Providers + +------+ + | Care Family Readiness Support Assistant Name | Role | Phone | + +------+ + | Sharon David MD | PCP | | + +------+ + Reason for Visit Consultation (Routine) +--------+---------+ + + + + | Status | Reason | Specialty | Diagnoses / | Referred By | Referred To | | | | | Procedures | Contact | Contact | +--------+---------+ + + + + | Closed | Other | Hematology & | Diagnoses | Rosemary, | Mia, | | | | Oncology | Iron | MD Jamila | Tyson Buchanan MD | | | | | overload | [address] | [address] | | | | | Procedures | [address] | [address] | | | | | CONSULT TO | Rd | [place], [place] | | | | | HEMATOLOGY / | [place], [place] | [address] | | | | | ONCOLOGY | [address] | Phone: | | | | | | Phone: | [phone] | | | | | | [phone] | Fax: | | | | | | Fax: | [phone] | | | | | | [phone] | | +--------+---------+ + + + + Encounter Details +--------+---------+ + + + | Date | Type | Department | Care Team | Description | +--------+---------+ + + + | 05/18/ | Office | [facility] | Tyson Bellamy, | Iron overload | | 2019 | Visit | Clinics at S | MD [address] | (Primary Dx) | | | | [place] [address] | [address] [place], | | | | | [facility] | [place] [address] | | | | | [facility], | [phone] | | | | | Building [address] | | | | | | [place], [place] | | | | | | [address] | | | | | | [phone] | | | +--------+---------+ + + + [...] + + + | Blood Pressure | 106/60 | 05/18/2019 4:02 PM | | | | | PDT | | + + + + + | Pulse | 59 | 05/18/2019 4:02 PM | | | | | PDT | | + + + + + | Temperature | 36.6 C (97.8 F) | 05/18/2019 4:02 PM | | | | | PDT | | + + + + + | Respiratory Rate | 16 | 05/18/2019 4:02 PM | | | | | PDT | | + + + + + | Oxygen Saturation | 100% | 05/18/2019 4:02 PM | | | | | PDT | | + + + + + | Inhaled Oxygen | - | - | | | Concentration | | | | + + + + + | Weight | 88.9 kg (196 lb) | 05/18/2019 4:02 PM | | | | | PDT | | + + + + + | Height | - | - | | + + + + + | Body Mass Index | 27.34 | 04/21/2019 11:32 PM | | | | | PDT [...] documented as of this encounter Progress Notes Tyson Bellamy MD - 05/18/2019 4:10 PM PDTFormatting of this note might be different f rom the original. Hematology Clinic Followup. 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 This is compounded by significant transfusion associated iron overload as evidenced by his persistent ferritin of 3-4 thousand, saturation of 105% and evidence of org an iron deposition on MRI abdomen. He underwent a bone marrow biopsy 07/2018 which showed a normocellular marrow with trilineage hematopoiesis and erythroid hyperplasia and increased s torage iron. FAISAL 2 V617F with reflex to MPN testing also previously preformed, negative. Subjective/Interval events: Since our last meet he has undergone cardiac MR which found myocardial iron overload. He v isits today with his sister and mother who flew in from [place] to help him with this visit. Nixon eduardo denies receiving any recent transfusions. HOME MEDICATIONS: Current Outpatient Medications on File Prior to Visit Medication Sig Dispense Refill furosemide 20 mg oral tablet Take 2 tablets by mouth two times daily. lactulose 10 gram/15 mL oral solution Take 15 mL by mouth two times daily. 15 mL metoprolol tartrate 25 mg oral tablet Take 0.5 tablets by mouth every six hours. Indica tions: Paroxysmal Supraventricular Tachycardia 120 tablet 2 spironolactone 100 mg oral tablet Take 1 tablet by mouth once daily. No current facility-administered medications on file prior to visit. ALLERGIES: Allergies Allergen Reactions Doxycycline Hives and Rash REVIEW OF SYSTEMS: Full review of systems reviewed and scanned into the medical record SOCIAL Social History Socioeconomic History Marital status: Single Spouse name: Not on file Number of children: Not on file Years of education: Not on file Highest education level: Not on file Occupational History Not on file Social Needs Financial resource strain: Not on file Food insecurity: Worry: Not on file Inability: Not on file Transportation needs: Medical: Not on file Non-medical: Not on file Tobacco Use Smoking status: Never Smoker Smokeless tobacco: Current User Types: Chew Substance and Sexual Activity Alcohol use: No Frequency: Never Drug use: No Sexual activity: Not on file Lifestyle Physical activity: Days per week: Not on file Minutes per session: Not on file Stress: Not on file Relationships Social connections: Talks on phone: Not on file Gets together: Not on file Attends buddhist service: Not on file Active member of club or organization: Not on file Attends meetings of clubs or organizations: Not on file Relationship status: Not on file Other Topics Concern Not on file Social History Narrative Not on file PHYSICAL EXAM: Last 24 hour min/max Temp: 36.6 C (97.8 F) @FLOWSTATR(6:24::1)@ Pulse: 59 @FLOWSTATR(8:24::1)@ Resp: 16 @FLOWSTATR(9:24::1)@ BP: 106/60 @FLOWSTATR(5:24::1)@ SpO2: 100 % @FLOWSTATR(10:24::1)@ Body mass index is 27.34 kg/m. General: The patient is alert, oriented, and does not appear to be in any acute distress. P mirela male HEENT: Mild scleral icterus without conjunctival injection. Pulm: Breathing unlabored GI: distended Extremities: Bilateral edema. Neuro: Cranial nerves grossly in tact bilaterally. Psych: Pleasant. Skin: Jaundice LABS: WHITE CELL COUNT 3.50 - 10.80 K/cu mm 6.57 RED CELL COUNT 4.50 - 6.00 M/cu mm 2.35Low HEMOGLOBIN 13.5 - 17.5 g/dL 8.5Low HEMATOCRIT 41.0 - 53.0 % 23.5Low MCV 80.0 - 100.0 fL 100.0 MCHC 32.0 - 36.0 g/dL 36.2High RDW SD 35.1 - 46.3 fL 54.6High PLATELET COUNT 150 - 400 K/cu mm 49Low Smear review: IMAGING: Cardiac MRI 1. Normal left ventricular systolic function and [...] spleen suggestive of sequelae of portal hypertension. 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 He has now developed significant transfusions associated iron over load with detectable liver and myocardial iron overload. Difficult situation as his liver di sease precludes the more common chelator Deferasirox. He also lives quite far from [facility] in [place], making the needed routine followup difficult. We discussed a trial of deferipron e with local monitoring (elis). He will need to see a local java oracle developer in [facility] for symptoms monitoring. He was agreeable to that plan. I will see him back in 6mo f or revaluation. If he should proceed to transplant we can stop the chelation and PLAN: -Deferiprone 2000mg TID -Local lab checks Q3-4 weeks (CBC, Zinc, Ferritin, LFTs) -Arrange commanagment with local java oracle developer -F/U with me in 6mo. Tyson Bellamy MD [place] Ring Sewertelephone information clerk Hematology-Medical Oncology [facility] [place] [address] documented in this encounter Plan of Treatment +--------+ + + + + | Date | Type | Specialty | Care Team | Description | +--------+ + + + + | 08/08/ | Telephone-S | Nephrology | Angélica Chao, | | | 2019 | [place] | | [address] | | | | | | [facility] | | | | | | [place], [place] | | | | | | [address] | | | | | | [phone] | | | | | | | | +--------+ + + + + | 09/27/ | Telephone-S | Liver Transplant | Vimal Crowe MD | | | 2020 | [place] | | [address] | | | | | | [address] [place], | | | | | | [place] [address] | | | | | | [phone] | | | | | | | [...] Rd | | | | | | [place], [place] | | | | | | [address] | | | | | | [phone] | | | | | | | | +--------+ + + + + documented as of this encounter Procedures + +--------+ + + + | Procedure Name | Priori | Date/Time | Associated Diagnosis | Comments | | | ty | | | | + +--------+ + + + | OUTSIDE LAB - | | 07/07/2019 | | Results for this | | PATHOLOGY | | 12:00 AM | | procedure are in the | | | | PDT | | results section. | + +--------+ + + + documented in this encounter Results OUTSIDE LAB - PATHOLOGY (07/07/2019 12:00 AM PDT) + + + | Narrative | Performed At | + + + | | | + + + documented in this encounter Visit Diagnoses + + | Diagnosis | + + | Iron overload - Primary Other disorders of iron metabolism | + + documented in this encounter
--- OUTSIDE RECORDS SUMMARY | ~2020-07-29 | XMS | Encounter Summary ---
Demographics + + + | Address | [address] | | | [place] [address] | + + + | Home Phone [...] [place] | | | | | [address] | | + + + + + Care Team Providers + +------+ + | Care Electrical Machine Builder Name | Role | Phone | + +------+ + | Sharon David MD | PCP | | + +------+ + Encounter Details +--------+--------+ + + + | Date | Type | Department | Care Team | Description | +--------+--------+ + + + | 09/14/ | Travel | | | | | [...] Rd | | | | | | [place], [place] | | | | | | [address] | | | | | | [phone] | | | | | | | | +--------+ + + + + | 09/27/ | Telephone-S | Liver Transplant | Vimal Crowe MD | | | 2019 | [place] | | [address] | | | | | | [address], | | | | | | [place] [address] | | | | | | [phone] | | | | | | | [...] [place] | | | | | | [address] | | | | | | [phone] | | | | | | | | +--------+ + + + + documented as of this encounter Visit Diagnoses Not on filedocumented in this encounter"
--- OUTSIDE RECORDS SUMMARY | ~2020-07-29 | XMS | Encounter Summary ---
Demographics + + + | Address | [address] | | | [place] [address] | + + + | Home Phone | | + + + | Preferred Language | Unknown | + + + | Marital Status | Single | + + + | Quaker Affiliation | NON | + + + [...] + + + + + | Doreen Mnaley | ECON | [address] | | | | | [place] | | | | | [address] | | + + + + + Care Team Providers + +------+ + | Care Children'S Librarian Name | Role | Phone | + +------+ + | Sharon David MD | PCP | | + +------+ + Encounter Details +--------+ + + + + | Date | Type | Department | Care Team | Description | +--------+ + + + + | 05/06/ | Documentati | Liver Transplant | Adam, | | | 2019 | on | at [facility] [address] | | | | | [address] | [address] | | | | | [address] | [place], [place] | | | | | [place], [place] | [address] | | | | | [address] | [phone] | | | | | [phone] | | | +--------+ + + + [...] this encounter Miscellaneous Notes Telephone Encounter - Amaris Medina LCSW - 05/06/2019 7:53 AM PDTLiver Transplant So cia Work Note- Documentation Only JACOBY received a copy of pt's initial substance use assessment form [place] Germania andrews, completed on 03/02/2019. Reviewed and sent for scanning. WINIFRED Mckenzie LCSW Clinical Transplant Float Sonography Technician Pager: [phone] documented in th is encounter Plan of Treatment +--------+ + + + + | Date | Type | Specialty | Care Team | Description | +--------+ + + + + | 08/08/ | Telephone-S | Nephrology | Angélica Chao, | | | 2019 | [place] | | [address] | | | | | | [address] | | | | | | [place], [place] | | | | | | [address] | | | | | | [phone] | | | | | | | | +--------+ + + + + | 09/27/ | Telephone-S | Liver Transplant | Vimal Crowe MD | | | 2019 | cheduled | | [address] | | | | | | [address], | | | | | | [place] [address] | | | | | | [phone] | | | | | | | | +--------+ + + + + | 10/03/ | Appointment | Cardiology | | | | 2019 | | | | | +--------+ + + + + | 10/03/ | Office | Cardiology | Cyril Samuel | | | 2020 | Visit | | MD Patricia [address] | | | | | | [address] | | | | | | [place] | | | | | | [address] | | | | | | [phone] | | | | | | | | +--------+ + + + + documented as of this encounter Visit Diagnoses Not on filedocumented in this encounter"
--- OUTSIDE RECORDS SUMMARY | ~2020-07-29 | XMS | Encounter Summary ---
Demographics + + + | Address | [address] | | | [place] [address] | + + + | Home Phone [...] Author + + + | Author | [facility] | + + + | Organization | [facility] | + + + | Address | Unknown | + + + | Phone | Unavailable | + + + Support + + + + + | Name | Relationship | Address | Phone | + + + + + | Doreen Manley | ECON | [address] | | | | | [place] | | | | | [address] | | + + + + + Care Team Providers + +------+ + | Care Fashion Patternmaker Name | Role | Phone | + +------+ + | Sharon David MD | PCP | | + +------+ + Encounter Details +--------+------+ + + + | Date | Type | Department | Care Team | Description | +--------+------+ + + + | 09/03/ | Lab | [facility] at [facility] | | Liver transplant | | 2019 | | [address] | | status (HCC) | | | | Loop [facility] | | | | | | [place], 3rd floor | | | | | | [place], [place] | | | | | | [address] | | | | | | [phone] | | | +--------+------+ + + + [...] Rd | | | | | | [facility] [place] | | | | | | [address] | | | | | | [phone] | | | | | | | | +--------+ + + + + | 09/27/ | Telephone-S | Liver Transplant | Vimal Crowe MD | | | 2019 | [place] | | [address] | | | | | | [address], | | | | | | [place] [address] | | | | | | [phone] | | | | | | | [...] Rd | | | | | | [place], [place] | | | | | | [address] | | | | | | [phone] | | | | | | | | +--------+ + + + + documented as of this encounter Procedures + +--------+ + + + | Procedure Name | Priori | Date/Time | Associated Diagnosis | Comments | | | ty | | | | + +--------+ + + + | CBC AND AUTO DIFF | Routin | 09/03/2019 | Liver transplant | Results for this | | | e | 8:09 AM | status (HCC) | procedure are in the | | | | PST | | results section. | + +--------+ + + + | CBC, WITH | Routin | 09/03/2019 | Liver transplant | Results for this | | DIFFERENTIAL | e | 8:09 AM | status (HCC) | procedure are in the | | | | PST | | results section. | + +--------+ + + + | COMPLETE METABOLIC | Routin | 09/03/2019 | Liver transplant | Results for this | | SET | e | 8:09 AM | status (HCC) | procedure are in the | | (NA,K,CL,CO2,BUN,CRE | | PST | | results section. | | AT,GLUC,CA,AST,ALT,B | | | | | | KEV TOTAL,ALK | | | | | | PHOS,ALB,PROT TOTAL) | | | | | + +--------+ + + + | TACROLIMUS, WHOLE | Routin | 09/03/2019 | Liver transplant | Results for this | | BLOOD | e | 8:09 AM | status (HCC) | procedure are in the | | | | PST | | results section. | + +--------+ + + + | PHOSPHORUS, PLASMA | Routin | 09/03/2019 | Liver transplant | Results for this | | | e | 8:09 AM | status (HCC) | procedure are in the | | | | PST | | results section. | + +--------+ + + + | BILIRUBIN DIRECT | Routin | 09/03/2019 | Liver transplant | Results for this | | | e | 8:09 AM | status (HCC) | procedure are in the | | | | PST | | results section. | + +--------+ + + + | URIC ACID, PLASMA | Routin | 09/03/2019 | Liver transplant | Results for this | | | e | 8:09 AM | status (HCC) | procedure are in the | | | | PST | | results section. | + +--------+ + + + | MAGNESIUM, PLASMA | Routin | 09/03/2019 | Liver transplant | Results for this | | | e | 8:09 AM | status (HCC) | procedure are in the | | | | PST | | results section. | + +--------+ + + + documented in this encounter Results CBC AND AUTO DIFF (09/03/2019 8:09 AM PST) + + + + + + | Component | Value | Ref Range | Performed | Pathologist | | | | | At | Signature | + + + + + + | WHITE CELL | 5.43 | 3.50 - 10.80 | [facility] | | | COUNT | | K/cu mm | LABORATORY | | | | | | SERVICES, | | | | | | CORE | | + + + + + + | RED CELL | 2.37 (L) | 4.50 - 6.00 | [facility] | | | COUNT | | M/cu mm | LABORATORY | | | | | | SERVICES, | | | | | | CORE | | + + + + + + | HEMOGLOBIN | 7.6 (L) | 13.5 - 17.5 | [facility] | | | | | g/dL | LABORATORY | | | | | | SERVICES, | | | | | | CORE | | + + + + + + | HEMATOCRIT | 23.5 (L) | 41.0 - 53.0 % | [facility] | | | | | | LABORATORY | | | | | | SERVICES, | | | | | | CORE | | + + + + + + | MCV | 99.2 | 80.0 - 100.0 fL | [facility] | | | | | | LABORATORY | | | | | | SERVICES, | | | | | | CORE | | + + + + + + | MCHC | 32.3 | 32.0 - 36.0 | [facility] | | | | | g/dL | LABORATORY | | | | | | SERVICES, | | | | | | CORE | | + + + + + + | RDW SD | 67.7 (H) | 35.1 - 46.3 fL | [facility] | | | | | | LABORATORY | | | | | | SERVICES, | | | | | | CORE | | + + + + + + | PLATELET | 154 | 150 - 400 K/cu | [facility] [...] + + + + | NEUTROPHIL | 70.2 (H) | 50.0 - 70.0 % | [facility] | | | % | | | LABORATORY | | | | | | SERVICES, | | | | | | CORE | | + + + + + + | LYMPHOCYTE | 19.0 | 18.0 - 42.0 % | [facility] | | | % | | | LABORATORY | | | | | | SERVICES, | | | | | | CORE | | + + + + + + | MONOCYTE % | 7.7 | 3.5 - 9.0 % | [facility] | | | | | | LABORATORY | | | | | | SERVICES, | | | | | | CORE | | + + + + + + | EOS % | 0.9 (L) | 1.0 - 3.0 % | [facility] | | | | | | LABORATORY | | | | | | SERVICES, | | | | | | CORE | | + + + + + + | BASO % | 1.5 | 0.0 - 2.0 % | [facility] [...] + + + + | NEUTROPHIL | 3.81 | 1.80 - 7.70 | [facility] | | | # | | K/cu mm | LABORATORY | | | | | | SERVICES, | | | | | | CORE | | + + + + + + | LYMPHOCYTE | 1.03 | 1.00 - 4.80 | [facility] | | | # | | K/cu mm | LABORATORY | | | | | | SERVICES, | | | | | | CORE | | + + + + + + | MONOCYTE # | 0.42 | 0.10 - 0.90 | [facility] | | | | | K/cu mm | LABORATORY | | | | | | SERVICES, | | | | | | CORE | | + + + + + + | EOS # | 0.05 | 0.00 - 0.50 | [facility] | | | | | K/cu mm | LABORATORY | | | | | | SERVICES, | | | | | | CORE | | + + + + + + | BASO # | 0.08 | 0.00 - 0.10 | [facility] | | | | | K/cu mm | LABORATORY | | | | | | SERVICES, | | | | | | CORE | | + + + + + + | IG# | 0.04 | 0.00 - 0.10 | [...] | + + + + + | [facility] | [address] | [place] [address] | | | SERVICES, CORE | [address] | | | + + + + + URIC ACID, PLASMA (09/03/2019 8:09 AM PST) + +-------+ + + + | Component | Value | Ref Range | Performed | Pathologist | | | | | At | Signature | + +-------+ + + + | URIC ACID, | 6.5 | 3.7 - 8.0 mg/dL | [facility] [...] + | [facility] | [address] | [place] [address] | | | SERVICES, CORE | [address] | | | + + + + + TACROLIMUS, WHOLE BLOOD (09/03/2019 8:09 AM PST) + +-------+ + + + | Component | Value | Ref Range | Performed | Pathologist | | | | | At | Signature | + +-------+ + + + | TACROLIMUS | 6.9 | 5.0 - 15.0 | [facility] | [...] | Test performed by immunoassay using Palafox Obstetrics Gyn Physician i2000. . | [facility] | | Samples [...] | + + + + + | [facility] | [address] | [place] [address] | | | SERVICES, SPECIAL | [address] | | | | IMM + COAG | | | | + + + + + BILIRUBIN DIRECT (09/03/2019 8:09 AM PST) + +---------+ + + + [...] | + +---------+ + + + | ELLYN D CMNT | No Hemo | | [...] [facility] | [address] | [place] [address] | | | SERVICES, CORE | [address] | | | + + + + + PHOSPHORUS, PLASMA (09/03/2019 8:09 AM PST) + +-------+ + + + | Component | Value | Ref Range | Performed | Pathologist | | | | | At | Signature | + +-------+ + + + | PHOSPHORUS, | 3.6 | 2.4 - 4.7 mg/dL | [facility] [...] [facility] | [address] | [place] [address] | | | SERVICES, CORE | [address] | | | + + + + + MAGNESIUM, PLASMA (09/03/2019 8:09 AM PST) + +---------+ + + + | Component | Value | Ref Range | Performed | Pathologist | | | | | At | Signature | + +---------+ + + + | MAGNESIUM,P | 1.4 (L) | 1.6 - 2.6 mg/dL | [facility] | | | LASMA | | | LABORATORY | | | | | | CLAUDIA, | | | | | | CORE | | + +---------+ + + + + + | Specimen | + + | Blood - Blood | | (substance) | + + + + + + + | Performing | Address | City/State/Zipcode | Phone Number | | Organization | | | | + + + + + | [facility] | [address] | [place] [address] | | | SERVICES, CORE | [address] | | | + + + + + COMPLETE METABOLIC SET (NA,K,CL,CO2,BUN,CREAT,GLUC,CA,AST,ALT,BILI TOTAL,ALK PHOS,ALB,PROT TOTAL) (09/03/2019 8:09 AM PST) + + + + + + | Component | Value | Ref Range | Performed | Pathologist | | | | | At | Signature | + + + + + + | GLUCOSE, | 129 (H) | 70 - 99 mg/dL | [facility] | | | PLASMA | | | LABORATORY | | | (LAB) | | | SERVICES, | | | | | | CORE | | + + + + + + | BUN, PLASMA | 33 (H) | 6 - 20 mg/dL | [facility] | | | (LAB) | | | LABORATORY | | | | | | SERVICES, | | | | | | CORE | | + + + + + + | CREATININE | 1.81 (H) | 0.70 - 1.30 | [facility] | | | PLASMA | | mg/dL | LABORATORY | | | (LAB) | | | SERVICES, | | | | | | CORE | | + + + + + + | EGFR | 48 (L) | >60 mL/min | [facility] | | | - | | | LABORATORY | | | CROATIAN | | | SERVICES, | | | | | | CORE | | + + + + + + | EGFR NON | 39 (L) | >60 mL/min | [...] + + + + | POTASSIUM, | 4.2 | 3.4 - 5.0 | [facility] | | | PLASMA | | mmol/L | LABORATORY | | | (LAB) | | | SERVICES, | | | | | | CORE | | + + + + + + | CHLORIDE, | 102 | 97 - 108 mmol/L | [facility] [...] + + + + | TOTAL | 5.9 (L) | 6.4 - 8.2 g/dL | [...] + + + | ALK PHOS | 49 (L) | 53 - 128 U/L | [facility] | | | | | | LABORATORY | | | | | | SERVICES, | | | | | | CORE | | + + + + + + | AST(SGOT) | 10 | <=41 U/L | [facility] | | | | | | LABORATORY | | | | | | SERVICES, | | | | | | CORE | | + + + + + + | ALT (SGPT) | 23 | <=60 U/L | [facility] | | [...] + + + + | ANION | 6 | 4 - 11 mmol/L [...] | + + + + + | [facility] | [address] | [place] [address] | | | ARTIS TAYLOR | [address] | | | + + + + + documented in this encounter Visit Diagnoses + + | Diagnosis | + + | Liver transplant status (HCC) | + + documented in this encounter"
--- OUTSIDE RECORDS SUMMARY | ~2020-07-29 | XMS | Encounter Summary ---
Demographics + + + | Address | [address] | | | [place] [address] | + + + | Home Phone | | + + + | Preferred Language | Unknown | + + + | Marital Status | Single | + + + | Yazdanism Affiliation | NON | + + + [...] [place] | | | | | [address] | | + + + + + Care Team Providers + +------+ + | Care Process Maintenance Technician Name | Role | Phone | + +------+ + | Sharon David MD | PCP | | + +------+ + Encounter Details +--------+ + + + + | Date | Type | Department | Care Team | Description | +--------+ + + + + | 09/14/ | Pharmacy | Specialty Pharmacy | | | | 2019 | Visit | Services [address] | | | | | [address] | | | | | | [place], [place] | | | | | | [address] | | | | | | [phone] | | | +--------+ + + + [...] | | 2019 | [place] | | [address] | | | | | | [address] | | | | | | [place], [place] | | | | | | [address] | | | | | | [phone] | | | | | | | | +--------+ + + + + | 09/27/ | Telephone-S | Liver Transplant | Vimal Crowe MD | | | 2019 | cheduled | | [address] | | | | | | [facility] [place], | | | | | | [place] [address] | | | | | | [phone] | | | | | | | | +--------+ + + + + | 10/03/ | Appointment | Cardiology | | | | 2019 | | | | | +--------+ + + + + | 10/03/ | Office | Cardiology | Cyril Samuel | | | 2019 | Visit | | MD Patricia [address] | | | | | | [address] | | | | | | [place], [place] | | | | | | [address] | | | | | | [phone] | | | | | | | | +--------+ + + + + documented as of this encounter Visit Diagnoses Not on filedocumented in this encounter"
--- OUTSIDE RECORDS SUMMARY | ~2020-07-29 | XMS | Encounter Summary ---
Demographics + + + | Address | [address] | | | [place] [address] | + + + | Home Phone | | + + + | Preferred Language | Unknown | + + + | Marital Status | Single | + + + | Evangelical Affiliation | NON | + + + [...] [place] | | | | | [address] | | + + + + + Care Team Providers + +------+ + | Care Cota Name | Role | Phone | + +------+ + | Sharon David MD | PCP | | + +------+ + Encounter Details +--------+ + + + + | Date | Type | Department | Care Team | Description | +--------+ + + + + | 06/28/ | Pharmacy | [facility] | | | | 2020 | Visit | [address] | | | | | | [address] | | | | | | [place] [address] | | | | | | [phone] | | | +--------+ + + + [...] Rd | | | | | | [place], [place] | | | | | | [address] | | | | | | [phone] | | | | | | | | +--------+ + + + + | 09/27/ | Telephone-S | Liver Transplant | Vimal Crowe MD | | | 2019 | cheduled | | [address] | | | | | | [address], | | | | | | [place] [address] | | | | | | [phone] | | | | | | | [...] Rd | | | | | | [place] | | | | | | [address] | | | | | | [phone] | | | | | | | | +--------+ + + + + documented as of this encounter Visit Diagnoses Not on filedocumented in this encounter"
--- OUTSIDE RECORDS SUMMARY | ~2020-07-29 | XMS | Encounter Summary ---
Demographics + + + | Address | [address] | | | [place] [address] | + + + | Home Phone | | + + + | Preferred Language | Unknown | + + + | Marital Status | Single | + + + | Orthodoxy Affiliation | NON | + + + [...] [place] | | | | | [address] | | + + + + + Care Team Providers + +------+ + | Care Ladle Handler Name | Role | Phone | + +------+ + | Sharon David MD | PCP | | + +------+ + Encounter Details +--------+ + + + + | Date | Type | Department | Care Team | Description | +--------+ + + + + | 03/01/ | Abstract | Clinical | Vimal Crowe MD | | | 2019 | | Transplant Services | [address] | | | | | [address] | [address] [place], | | | | | [place], | [place] [address] | | | | | [place] [address] | [phone] | | | | | [phone] | | | +--------+ + + + [...] Rd | | | | | | [place], [place] | | | | | | [address] | | | | | | [phone] | | | | | | | | +--------+ + + + + | 09/27/ | Telephone-S | Liver Transplant | Vimal Crowe MD | | | 2019 | [place] | | [address] | | | | | | [facility] [address] [place], | | | | | | [place] [address] | | | | | | [phone] | | | | | | | | +--------+ + + + + | 10/03/ | Appointment | Cardiology | | | | 2019 | | | | | +--------+ + + + + | 10/03/ | Office | Cardiology | Cyril Samuel | | | 2019 | Visit | Darren Gomez MD [address] | | | | | | [address] | | | | | | [place], [place] | | | | | | [address] | | | | | | [phone] | | | | | | | | +--------+ + + + + documented as of this encounter Procedures + +--------+ + + + | Procedure Name | Priori | Date/Time | Associated Diagnosis | Comments | | | ty | | | | + +--------+ + + + | LIVER TRANSPLANT | Routin | 02/29/2020 | | Results for this | | POST PANEL (EXT | e | 10:16 AM | | procedure are in the | | RESULTS) | | PDT | | results section. | + +--------+ + + + documented in this encounter Results LIVER TRANSPLANT POST PANEL (EXT RESULTS) (02/29/2020 10:16 AM PDT) + + + + + + | Component | Value | Ref Range | Performed | Pathologist | | | | | At | Signature | + + + + + + | SODIUM, | 136 | mmol/L | [facility] | | | [...] + + + + | GLUCOSE, | 171 (A) | 65 - 110 mg/dL | [facility] | | | PLASMA | | | LAB - | | | (LAB) | | | [place] | | + + + + + + | BUN, PLASMA | 37 | mg/dL | [facility] | | | (LAB) | | | LAB - | | | | | | [place] | | + + + + + + | CREATININE | 2.22 | mg/dL | [facility] | | | [...] + + + + | PHOSPHORUS, | 4.7 | mg/dL | [facility] | | | PLASMA | | | LAB - | | | (LAB) | | | [place] | | + + + + + + | MAGNESIUM,P | 1.7 | mg/dL | [facility] | | | [...] + + + + | ALBUMIN, | 3.8 | g/dL | [facility] | | | [...] + + + | ALK PHOS | 61 | U/L | [facility] | | | | | | LAB - | | | | | | [place] | | + + + + + + | AST(SGOT) | 10 | U/L | [facility] | | | | | | LAB - | | | | | | [place] | | + + + + + + | ALT (SGPT) | 10 | U/L | [facility] | | | | | | LAB - | | | | | | [place] | | + + + + + + | URIC ACID, | 8.4 | mg/dL | [facility] | | | PLASMA | | | LAB - | | | (LAB) | | | [place] | | + + + + + + | WHITE CELL | 5.2 | K/cu mm | [facility] | | | COUNT | | | LAB - | | | | | | [place] | | + + + + + + | HEMATOCRIT | 30.7 | % | [facility] | | | [...] + + + + | PLATELET | 103 | K/cu mm | [facility] | | | COUNT | | | LAB - | | | | | | [place] | | + + + + + + | TACROLIMUS | 3.7 | ng/mL | [facility] | | | ([address]) | | | LAB - | | | | | | [place] | | + + + + + + | PHOSPHATIDY | Negative | | [facility] | | | LETHAN[place] | | | LAB - | | | (PETH) | | | [place] | | + [...] + + | [facility] - | [address] | [place] | [phone] | | [place] | | | | + + + + + documented in this encounter Visit Diagnoses Not on filedocumented in this encounter"
--- OUTSIDE RECORDS SUMMARY | ~2020-07-29 | XMS | Encounter Summary ---
Demographics + + + | Address | [address] | | | [place] [address] | + + + | Home Phone | | + + + | Preferred Language | Unknown | + + + | Marital Status | Single | + + + | Yarsani Affiliation | NON | + + + [...] [place] | | | | | [address] | | + + + + + Care Team Providers + +------+ + | Care Crepe Sole Scourer Name | Role | Phone | + +------+ + | Sharon David MD | PCP | | + +------+ + Reason for Visit + + + | Reason | Comments | + + + | Follow-up visit | | + + + Benefits Check (Routine) + +--------+ + + + + | Status | Reason | Specialty | Diagnoses / | Referred By | Referred To | | | | | Procedures | Contact | Contact | + +--------+ + + + + | New Request | | Nephrology | | Frankie, | [facility] | | | | | | [place] | [facility] [address] | | | | | | MD Lei | [address] | | | | | | [address] | | | | | | [address] | [address], | | | | | | [place], | 3rd floor | | | | | | [place] [address] | [place], [place] | | | | | | Phone: | [address] | | | | | | [phone] | Phone: | | | | | | Fax: | [phone] | | | | | | [phone] | Fax: | | | | | | | [phone] | + +--------+ + + + + Encounter Details +--------+ + + + + | Date | Type | Department | Care Team | Description | +--------+ + + + + | 05/16/ | Telephone-S | Nephrology & | Angélica Chao, | Follow-up visit | | 2020 | cheduled | Hypertension at | [address] [facility] | | | | | [place] [address] | | | | [address] | [place], [place] | | | | | [place] [address] | [address] | | | | | [phone] | [phone] | | | | | | | [...] of this encounter Patient Instructions Patient Instructions Angélica Chao MD - 05/16/2020 4:00 PM PDT1. If you have more felipe [place] from the [facility], please let me know. 2. If you are able to buy a home blood pressure machine, that would be useful. I recommend buying a xaxmhy-bt-icr-road machine (not the cheapest and not the most expensive). Most are about $45. Please do NOT buy a wrist cuff as those are less accurate. Please buy an upper ar m cuff. I suspect you require a regular cuff, but the box will have measurement information to help you choose the correct size. 3. If you have a home BP machine, please check your blood pressure 3-4 times a week at vari ed times of day (morning one day, evening another day, mid day another day, etc). Please wri te down date, time of day, blood pressure, and pulse (heart rate). If the upper number is ab ove 140 or below 110, or the lower number is above 90, on two or more readings, please let m e know. 4. I do think your kidneys are very sensitive to changes in fluid status right now. If you have diarrhea or vomiting, or can't eat and drink normally, for more than one day, please re ach out to me to discuss. 5. We will contact [facility] about your ultrasound results and I will reach out once we have those. 6. I have ordered some additional urine labs to be done the [facility] or lab tests. 7. I will ask my office to schedule you for an appointment in 2 months. Electronically sign ed by Angélica Chao MD at 05/17/2020 10:11 AM PDT documented in this encounter Progress Notes Filippo Mccurdy MA - 05/16/2020 4:00 PM PDTAVS placed in the mail to be sent to the patient . Filippo Mccurdy MA ena Domínguez MA - 04/21 4:00 PM PDTMailed Hard Copy of AVS 7.27.20 phone visit to patient: [address] [facility] [place] [address] Kena Domínguez MA eAngélica tinoco MD - 0 05/16/2020 4:00 PM PDT Patient agrees to a telephone encounter for today's visit. They understand they may be resp onsible for the balance after insurance processes the claim. The visit took place via telephone with the provider located at the distant site of [facility]. T he patient stated they were located at the originating site of home and were in the state [facility] at the time of the telephone visit. The names of all persons participating in the judy paulino visit and their roles are: Donell Duran (patient), Angélica Chao (provider). Time spent on the call: 18 min. The patients encounter was accomplished via a telephone call today due to COVID-19 precauti onary measures to limit the patient's unnecessary exposure. Date of service: 05/16/2020 Reason for visit: F/u KAR ASSESSMENT:Mr. Duran is a 55 yo gentleman with hx ESLD now s/p OLT Jul 2019, with kar req uiring dialysis clara-op who presents forfollow upofCKD.He initially hadAKIin the setting of ESLD. His AKIwas felt to be multifactorial (hemodynamic - HRS +/- ATN and then potentially exacerbated by tacrolimus and bactrim). He underwent OLT in Jul 2019.He was o n dialysispost OLT, from08/22-09/01. [facility] he developed pruritic hives on both forearms shortly after starting dialysis. He h adreceived only heparin at that time. He was using the same dialyzer (revaclear 300) that he had used twice in thehospital. He had been receiving heparin for TDC locking while in h ospital. Dialysis was stopped, TDC packed with citrate. Onfollow uplabs on 09/03, creati nine continued to be <2 so dialysis was discontinued.TDC was removed in Aug 2019. Potas sium remained elevated until bactrim was changed to atovaquone (after which it improved to b e mostly in the mid 4's- low 5 range). Pt was readmitted in Sep 2019 with FTT and depression. He reports feeling improved si nce discharge. He was started on mirtazapine, which pt reported improved sleep and appetite. Creatinine since dialysis discontinuation has been 1.6-2.2; since early 2019, most value s 1.8-2.2. eGFR by MDRD with this range is low to mid 30's (CKD IIIb).He had an unexpected rise in creatinine to low 3's in April 2020 without clear precipitant. Creatinine returned t o 1.8 mid April, but then back to low 2's late April. Since last appt, he has had increase in creat to low 3' s (early April) without clear pre cipitant. BP was running higher at that time and ISDN was added, but BP was still not "low" on recheck per pt. Of note, he does not have BP machine for home use. Creat was 1.8 on 05/02 but back to low 2's on last check. He notes he had labs done today but those results are not yet visible. He had noticed more loose stools after starting lokelma, but thinks his body h as now adjusted to this medication as he has not had diarrhea after past several doses. Prev ious orthopnea resolved - pt attributes this to "better heart function" after initiation of ISDN. 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 PLAN: -CKD IIIb/IV: with broad creatinine fluctuations. Unclear why he has such fragility in term s of his renal function; this may speak to degree of fibrosis post significant kar clara-txp. Will also be valuable to follow up ultrasound - per pt, this was done but we have not recei mile results (our office reached out to external facility for results today). Also need to se e labs done today (pending). I did talk with him re importance of hydration and of letting m e know if he has significant diarrhea. I asked him to alert me if diarrhea returns with loke lma (sounds as though this has improved overall). Will also check upc, spep, upep with next labs. -Edema/HTN: edema improved per pt. He is unsure re HTN as he does not have BP machine right now. No s/s orthostasis and no new CARVER or vision changes. I have message out to his hepatolo gy team to inquire re role of fludrocortisone. [place] to stop if only indication was hyperK. I have recommended he buy BP machine if possible. Also provided information re BP goals (see AVS) and monitoring schedule if feasible. -HyperK:cont low K diet and lokelma as this seems to be working reasonably. However, if d iarrhea with lokelma recurs, consider change to patiromer. -Anemia: Last Hgb 10.7, reasonable. Followed by local hematology. -R/o mineral bone disease: PTH 19 in Oct. Consider recheck in the Fall. F/u: 2 mo Angélica Chao MD [facility] Professor Division of Nephrology and Hypertension Office tel: [phone] I spent 18 minutes with this patient on the phone today, >50% of which was spent counseling the patient regarding his CKD and problems as noted above. Problem list: (This list was compiled at time of initial consultation based on chart review and patient interview; this list was reviewed today and was modified as needed to maintain accuracy.) 1. ESLD -2/2 etoh (presumed, post olt bx pending as of Aug 2019) -s/p OLT Aug 16, 2019 ([facility]) 2. KAR--> CKD -multifactorial around time of OLT (hemodynamic/HRS, bactrim, tacrolimus) -HD initiated 08/22/19 for azotemia, hypervolemia; stopped after 09/01/19 with e/o renal rec overy 3. Malnutrition 4. SVT/Afib 5. Elevated CBGs 2/2 medications -on insulin post OLT Pre-clinic chart review (from outside/internal medical record review): I spoke with pt on after being alerted to creatinine values in low 3's. No clear precipitant. SBP highe r, 150s+, newly on ISDN (only new med). I ordered repeat labs (creat down to 2's) and ultras ound (not yet completed or not visible to me- results not received). Last appt was in January at which point he c/o some difficulty lying flat, but CXR clear. S: I talked with pt by phone today. He notes it is "hot" (104 degrees) there. He does have AC. We reviewed what his kidney function has been doing lately. His kidney function number (cre atinine) was 3.1-3.2 when we talked in early April. He thinks worsening kidney function numbe r (creatinine) is from diarrhea related to lokelma. He did not take his usual dose and did n ot have diarrhea when creatinine came back down to 1.8 (05/02). He did not have diarrhea, how ever, prior to last labs on 05/09. He does think diarrhea from lokelma is decreasing with mor e doses. He notes CBGs are high lately as well. Per pt, he did complete kidney ultrasound. We have not received results yet. He notes he is having nocturia 3-4 times a night, a bit less than before but more than normal. Really no p eripheral edema right now unless he's "on his feet all day." He thinks BP has been high but he isn't sure. He is still on fludrocortisone. ROS: No CP. No sob unless longer distances. He notes he can breath better even lying down s malika he started isosorbide. No skin changes, no vision changes. He notes he had recent visio n check. Reviewed systems include constitutional, eyes, nose/throat, musculoskeletal, psy ch, cardiovascular, respiratory, GI, , skin. Current Outpatient Medications Medication Sig Alcohol Swabs (ALCOHOL PREP SWABS) topical pads, medicated Apply 1 each to affected are a five times daily. Use as directed. amiodarone 200 mg oral tablet Take 1 tablet by mouth once daily. Indications: preventio n of ventricular fibrillation aspirin EC 325 mg oral tablet,delayed release (DR/EC) Take 1 tablet by mouth once daily . BASAGLAR KWIKPEN U-100 INSULIN 100 unit/mL (3 mL) subcutaneous insulin pen Inject 10 Un its under the skin (SUBC) once daily at bedtime. Indications: type 2 diabetes mellitus Blood Sugar Diagnostic (FREESTYLE LITE STRIPS) miscellaneous [...] your PCP. Indications: type 2 diabetes mellitus glimepiride 2 mg oral tablet Take 1 tablet by mouth once daily with breakfast. Insulin [place]ner (Disposable) (COMFORT EZ PEN NEEDLES) 31 gauge x 5/16" miscellaneous ([facility]) needle Use as directed for 5 insulin injections per day. isosorbide dinitrate 20 mg oral tablet Take 20 mg by mouth three times daily before farnaz ls. lancets (FREESTYLE LANCETS) 28 gauge miscellaneous (mis) [facility] Test blood sugar four ti mes daily (before each meal and at bedtime). Indications: type 2 diabetes mellitus magnesium oxide 250 mg elemental oral tablet Take 2 tablets by mouth two times daily. ( Patient taking differently: Take 1,600 mg elemental by mouth two times daily. ) metoprolol succinate 25 mg oral tablet extended release 24 hr Take one tablet by mouth once daily for 90 days mirtazapine 30 mg oral tablet Take 1 tablet by mouth once daily in the evening. Indicat ions: lack of appetite sodium polystyrene (KAYEXALATE) oral powder Take 30 grams now and 30 grams tonight Joceline cations: high levels of potassium in the blood sodium zirconium (LOKELMA) 10 gram oral powder in packet Mix 10 g and take orally twice weekly (on Saturday and ). Indications: high levels of potassium in the blood tacrolimus 1 mg oral capsule Take 2 capsules by mouth two times daily. Indications: niels er transplant rejection prevention No current facility-administered medications for this visit. O: No home VS from today Exam deferred - phone visit Labs: Recent Labs 04/25/20 0644 05/02/20 0648 05/09/20 05/09/20 0815 NA 141 137 140 139 | 140 K 4.5 4.0 4.5 4.5 | 4.5 CL 102 99 102 101 | 102 BICARB 29 29 30 31 | 30 BUN 40 39 47* 48 | 47* CR 3.11 1.83 2.26* 2.26 | 2.26* GLU 187* 315* 393* 392* | 393* CA 9.3 9.4 9.2 9.2 | 9.2 AST 17 19 -- 14 ALT 16 17 -- 17 AP 84 86 -- 81 TBILI 0.5 0.4 -- 0.3 TP 6.6 6.6 -- 6.2 ALB 4.2 4.4 4.0 3.9 | 4.0 Lab Results Component Value Date PO4 3.8 05/09/2020 PO4 3.9 05/09/2020 Lab Results Component Value Date MG 2.0 05/09/2020 Lab Results Component Value Date PTH 19 11/16/2019 Lab Results Component Value Date SATTRANSFERR 18 (L) 11/09/2019 SATTRANSFERR 82 (H) 08/15/2019 SATTRANSFERR 105 (H) 04/21/2019 Lab Results Component Value Date FERRITIN 189 11/16/2019 Recent Labs 04/25/20 0644 05/02/20 0648 05/09/20 0815 WBC 4.8 5.4 4.7 HB 11.5* 12.0* 10.7* HCT 33.5 34.5 31.6 PLT 107 107 96 Please see A/P at top of this note. documented in this e ncounter Plan of [...] Rd | | | | | | [place], [place] | | | | | | [address] | | | | | | [phone] | | | | | | | | +--------+ + + + + | 09/27/ | Telephone-S | Liver Transplant | Vimal Crowe MD | | 2019 | [place] | | [address] | | | | | | [address], | | | | | | [place] [address] | | | | | | [phone] | | | | | | | | +--------+ + + + + | 10/03/ | Appointment | Cardiology | | | | 2019 | | | | | +--------+ + + + + | 10/03/ | Office | Cardiology | Cyril Samuel | | | 2019 | Visit | | MD Patricia [address] [facility] [address] | | | | | | [address] | | | | | | [place], [place] | | | | | | [address] | | | | | | [phone] | | | | | | | | +--------+ + + + + + +------+--------+ + + | Name | Type | Priori | Associated Diagnoses | Order Schedule | | | | ty | | | + +------+--------+ + + | PROTEIN/CREATININE | Lab | Routin | CKD (chronic | Expected: 05/17/2020 | | RATIO, URINE | | e | kidney disease) | (Approximate), | | | | | stage 3, GFR 30-59 | Expires: 06/17/2021 | | | | | ml/min (HCC) | | + +------+--------+ + + | URINE, MICROSCOPIC | Lab | Routin | CKD (chronic | Expected: 05/17/2020 | | EXAM | | e | kidney disease) | (Approximate), | | | | | stage 3, GFR 30-59 | Expires: 06/17/2021 | | | | | ml/min (HCC) | | + +------+--------+ + + | UA, DIPSTICK ONLY | Lab | Routin | CKD (chronic | Expected: 05/17/2020 | | | | e | kidney disease) | (Approximate), | | | | | stage 3, GFR 30-59 | Expires: 06/17/2021 | | | | | ml/min (HCC) | | + +------+--------+ + + | PROTEIN | Lab | Routin | CKD (chronic | Expected: 05/17/2020 | | ELECTROPHORESIS, | | e | kidney disease) | (Approximate), | | SERUM, WITH REFLEX | | | stage 3, GFR 30-59 | Expires: 06/17/2021 | | TO IMMUNOFIXATION | | | ml/min (HCC) | | + +------+--------+ + + | GREGG WITH FREE LIGHT | Lab | Routin | CKD (chronic | Ordered: 05/17/2020 | | CHAINS, QUANT, URINE | | e | kidney disease) | | | | | | stage 3, GFR 30-59 | | | | | | ml/min (HCC) | | + +------+--------+ + + documented as of this encounter Visit Diagnoses + + | Diagnosis | + + | CKD (chronic kidney disease) stage 3, GFR 30-59 ml/min - Primary Chronic kidney | | disease, Stage III (moderate) | + + | Acute kidney injury superimposed on CKD (HCC) | + + | Hyperkalemia Hyperpotassemia | + + | Anemia, unspecified type | + + | Edema, unspecified type | + + documented in this encounter
--- OUTSIDE RECORDS SUMMARY | ~2020-07-29 | XMS | Encounter Summary ---
Demographics + + + | Address | [address] | | | [place] [address] | + + + | Home Phone [...] [place] | | | | | [address] | | + + + + + Care Team Providers + +------+ + | Care Funeral Home Manager Name | Role | Phone | + +------+ + | Sharon David MD | PCP | | + +------+ + Encounter Details +--------+ + + + + | Date | Type | Department | Care Team | Description | +--------+ + + + + | 05/24/ | Pharmacy | [facility] | | | | 2020 | Visit | [address] | | [address] | | [address] | | | | | | [place] [address] | | | | | | [phone] | | | +--------+ + + + [...] | | | | | | [place], [place] | | | | | | [address] | | | | | | [phone] | | | | | | | | +--------+ + + + + | 09/27/ | Telephone-S | Liver Transplant | Vimal Crowe MD | | | 2019 | cheduled | | [address] | | | | | | [address], | | | | | | [place] [address] | | | | | | [phone] | | | | | | | [...] Rd | | | | | | [place] | | | | | | [address] | | | | | | [phone] | | | | | | | | +--------+ + + + + documented as of this encounter Visit Diagnoses Not on filedocumented in this encounter"
--- OUTSIDE RECORDS SUMMARY | ~2020-07-29 | XMS | Encounter Summary ---
Demographics + + + | Address | [address] | | | [place] [address] | + + + | Home Phone | | + + + | Preferred Language | Unknown | + + + | Marital Status | Single | + + + | Christianity Affiliation | NON | + + + | Race | White | + + + | Ethnic Group | Not or | + + + Author + + + | Author | [facility] | + + + | Organization | [facility] | + + [...] [place] | | | | | [address] | | + + + + + Care Team Providers + +------+ + | Care Clinical Nutritionist Name | Role | Phone | + +------+ + | Sharon David MD | PCP | | + +------+ + Reason for Visit + + + | Reason | Comments | + + + | Blood Test Results | | + + + Encounter Details +--------+ + + + + | Date | Type | Department | Care Team | Description | +--------+ + + + + | 01/27/ | Abstract | Digestive Health | Vimal Crowe MD | Blood Test Results | | 2019 | | [facility] at [facility] [address] | [address] | | | | | [address] | [address] [place], | | | | | [facility] and | [place] [address] | | | | | [facility] | [phone] | | | | | [place], [place] | | | | | | [address] | | | | | | [phone] | | | +--------+ + + + [...] Rd | | | | | | [place], [place] | | | | | | [address] | | | | | | [phone] | | | | | | | | +--------+ + + + + | 09/27/ | Telephone-S | Liver Transplant | Vimal Crowe MD | | | 2019 | [place] | | [address] | | | | | | [address] | | | | | | [place] [address] | | | | | | [phone] | | | | | | | [...] Rd | | | | | | [place], [place] | | | | | | [address] | | | | | | [phone] | | | | | | | | +--------+ + + + + documented as of this encounter Visit Diagnoses Not on filedocumented in this encounter"
--- OUTSIDE RECORDS SUMMARY | ~2020-07-29 | XMS | Encounter Summary ---
Demographics + + + | Address | [address] | | | [place] [address] | + + + | Home Phone [...] [place] | | | | | [address] | | + + + + + Care Team Providers + +------+ + | Care Import/Export Freight Forwarder Name | Role | Phone | + +------+ + | Sharon David MD | PCP | | + +------+ + Encounter Details +--------+--------+ + + + | Date | Type | Department | Care Team | Description | +--------+--------+ + + + | 10/05/ | Travel | | | | | [...] Rd | | | | | | [place], [place] | | | | | | [address] | | | | | | [phone] | | | | | | | | +--------+ + + + + | 09/27/ | Telephone-S | Liver Transplant | Vimal Crowe MD | | | 2019 | [place] | | [address] | | | | | | [address], | | | | | | [place] [address] | | | | | | [phone] | | | | | | | [...] [place] | | | | | | [address] | | | | | | [phone] | | | | | | | | +--------+ + + + + documented as of this encounter Visit Diagnoses Not on filedocumented in this encounter"
--- OUTSIDE RECORDS SUMMARY | ~2020-07-29 | XMS | Encounter Summary ---
Demographics + + + | Address | [address] | | | [place] [address] | + + + | Home Phone | | + + + | Preferred Language | Unknown | + + + | Marital Status | Single | + + + | Scientology Affiliation | NON | + + + [...] [place] | | | | | [address] | | + + + + + Care Team Providers + +------+ + | Care Tag Clerk Name | Role | Phone | + +------+ + | Sharon David MD | PCP | | + +------+ + Encounter Details +--------+--------+ + + + | Date | Type | Department | Care Team | Description | +--------+--------+ + + + | 11/11/ | Travel | | | | | [...] Rd | | | | | | [place], [place] | | | | | | [address] | | | | | | [phone] | | | | | | | | +--------+ + + + + | 09/27/ | Telephone-S | Liver Transplant | Vimal Crowe MD | | | 2019 | [place] | | [address] | | | | | | [address], | | | | | | [place] [address] | | | | | | [phone] | | | | | | | [...] [place] | | | | | | [address] | | | | | | [phone] | | | | | | | | +--------+ + + + + documented as of this encounter Visit Diagnoses Not on filedocumented in this encounter"
--- OUTSIDE RECORDS SUMMARY | ~2020-07-29 | XMS | Encounter Summary ---
Demographics + + + | Address | [address] | | | [place] [address] | + + + | Home Phone | | + + + | Preferred Language | Unknown | + + + | Marital Status | Single | + + + | Gnosticism Affiliation | NON | + + + | Race | White | + + + | Ethnic Group | Not or | + + + Author + + + | Author | [facility] | + + + | Organization | [facility] | + + + | [...] [place] | | | | | [address] | | + + + + + Care Team Providers + +------+ + | Care Rn Procedure Name | Role | Phone | + +------+ + | Sharon David MD | PCP | | + +------+ + Reason for Visit + +--------+ + | Reason | Onset | Comments | | | Date | | + +--------+ + | Transplant Organ | 08/15/ | | | Offer | 2019 | | + +--------+ + Encounter Details +--------+ + + + + | Date | Type | Department | Care Team | Description | +--------+ + + + + | 08/15/ | Telephone | Clinical | Delmy Pollock, | Transplant Organ | | 2019 | | Transplant Services | RN [address] | Tera | | | | [address] | [address] | | | | | [place], | [place], [place] | | | | | [place] [address] | [address] | | | | | [phone] | | | +--------+ + + + [...] this encounter Miscellaneous Notes Telephone Encounter - Delmy Pollock RN - 08/15/2019 2:38 PM PDTI was contacted by Dr. Garcia ([facility] and this was verified) to begin the callin process for a possible liver transp lant. Patient contacted and is located on 5, I notified him and his sister that it is a [facility] increased risk organ and he agrees to proceed . Call in checklist was initiated. documented in this e ncounter Plan of [...] [address] | | | | | | [place], [place] | | | | | | [address] | | | | | | [phone] | | | | | | | | +--------+ + + + + | 09/27/ | Telephone-S | Liver Transplant | Vimal Crowe MD | | | 2019 | [place] | | [address] | | | | | | [address], | | | | | | [place] [address] | | | | | | [phone] | | | | | | | [...] Rd | | | | | | [place], [place] | | | | | | [address] | | | | | | [phone] | | | | | | | | +--------+ + + + + documented as of this encounter Visit Diagnoses Not on filedocumented in this encounter"
--- OUTSIDE RECORDS SUMMARY | ~2020-07-29 | XMS | Encounter Summary ---
Demographics + + + | Address | [address] | | | [place] [address] | + + + | Home Phone [...] + + + | Author | [facility] | + + + | Organization | [facility] | + + + | [...] [place] | | | | | [address] | | + + + + + Care Team Providers + +------+ + | Care Shop Girl Name | Role | Phone | + +------+ + | Sharon David MD | PCP | | + +------+ + Encounter Details +--------+ + + + + | Date | Type | Department | Care Team | Description | +--------+ + + + + | 07/15/ | Pharmacy | [facility] | | | | 2020 | Visit | [address] | | | | | | [address] | | | | | | [place] [address] | | | | | | [phone] | | | +--------+ + + + [...] Rd | | | | | | [place], [place] | | | | | | [address] | | | | | | [phone] | | | | | | | | +--------+ + + + + | 09/27/ | Telephone-S | Liver Transplant | Vimal Crowe MD | | | 2019 | [place] | | [address] | | | | | | [address], | | | | | | [place] [address] | | | | | | [phone] | | | | | | | [...] Rd | | | | | | [place] | | | | | | [address] | | | | | | [phone] | | | | | | | | +--------+ + + + + documented as of this encounter Visit Diagnoses Not on filedocumented in this encounter"
--- OUTSIDE RECORDS SUMMARY | ~2020-07-29 | XMS | Encounter Summary ---
Demographics + + + | Address | [address] | | | [place] [address] | + + + | Home Phone [...] Author + + + | Author | [facility] | + + + | Organization | [facility] | + + + | Address | Unknown | + + + | Phone | Unavailable | + + + Support + + + + + | Name | Relationship | Address | Phone | + + + + + | Doreen Manley | ECON | [address] | | | | | [place] | | | | | [address] | | + + + + + Care Team Providers + +------+ + | Care Technician Assistant Name | Role | Phone | + +------+ + | Sharon David MD | PCP | | + +------+ + Encounter Details +--------+ + + + + | Date | Type | Department | Care Team | Description | +--------+ + + + + | 06/23/ | Pharmacy | [facility] | | | | 2020 | Visit | [address] | | | | | | [address] | | | | | | [place] [address] | | | | | | [phone] | | | +--------+ + + + [...] Rd | | | | | | [place], [place] | | | | | | [address] | | | | | | [phone] | | | | | | | | +--------+ + + + + | 09/27/ | Telephone-S | Liver Transplant | Vimal Crowe MD | | | 2019 | [place] | | [address] | | | | | | [address], | | | | | | [place] [address] | | | | | | [phone] | | | | | | | [...] Rd | | | | | | [place] | | | | | | [address] | | | | | | [phone] | | | | | | | | +--------+ + + + + documented as of this encounter Visit Diagnoses Not on filedocumented in this encounter"
--- OUTSIDE RECORDS SUMMARY | ~2020-07-29 | XMS | Encounter Summary ---
Demographics + + + | Address | [address] | | | [place] [address] | + + + | Home Phone [...] [place] | | | | | [address] | | + + + + + Care Team Providers + +------+ + | Care Chief Security And Safety Officer Name | Role | Phone | + +------+ + | Sharon David MD | PCP | | + +------+ + Encounter Details +--------+ + + + + | Date | Type | Department | Care Team | Description | +--------+ + + + + | 02/09/ | Pharmacy | [facility] | | | | 2020 | Visit | [address] | | | | | | [address] | | | | | | [place] [address] | | | | | | [phone] | | | +--------+ + + + [...] Rd | | | | | | [place], [place] | | | | | | [address] | | | | | | [phone] | | | | | | | | +--------+ + + + + | 09/27/ | Telephone-S | Liver Transplant | Vimal Crowe MD | | | 2019 | [place] | | [address] | | | | | | [address], | | | | | | [place] [address] | | | | | | [phone] | | | | | | | [...] Rd | | | | | | [place] | | | | | | [address] | | | | | | [phone] | | | | | | | | +--------+ + + + + documented as of this encounter Visit Diagnoses Not on filedocumented in this encounter"
--- OUTSIDE RECORDS SUMMARY | ~2020-07-29 | XMS | Encounter Summary ---
Demographics + + + | Address | [address] | | | [place] [address] | + + + | Home Phone [...] [place] | | | | | [address] | | + + + + + Care Team Providers + +------+ + | Care Soil And Plant Scientist Name | Role | Phone | + +------+ + | Sharon David MD | PCP | | + +------+ + Encounter Details +--------+ + + + + | Date | Type | Department | Care Team | Description | +--------+ + + + + | 05/19/ | Pharmacy | Pharmacy @ [facility] | | | | 2019 | Visit | [address] | | | | | | [address] Mailcode: | | | | | | [facility] | | | | | | and Healing, | | | | | | Building [address] | | | | | | [place], [place] | | | | | | [address] | | | +--------+ + + + [...] Rd | | | | | | [place], [place] | | | | | | [address] | | | | | | [phone] | | | | | | | | +--------+ + + + + | 09/27/ | Telephone-S | Liver Transplant | Vimal Crowe MD | | | 2019 | c[place] | | [address] | | | | | | [facility] [address] [place], | | | | | | [place] [address] | | | | | | [phone] | | | | | | | [...] Rd | | | | | | [place] | | | | | | [address] | | | | | | [phone] | | | | | | | | +--------+ + + + + documented as of this encounter Visit Diagnoses Not on filedocumented in this encounter"
--- OUTSIDE RECORDS SUMMARY | ~2020-07-29 | XMS | Encounter Summary ---
Demographics + + + | Address | [address] | | | [place] [address] | + + + | Home Phone [...] [place] | | | | | [address] | | + + + + + Care Team Providers + +------+ + | Care Bird Cage Assembler Name | Role | Phone | + +------+ + | Sharon David MD | PCP | | + +------+ + Encounter Details +--------+ + + + + | Date | Type | Department | Care Team | Description | +--------+ + + + + | 06/28/ | Pharmacy | [facility] | | | | 2020 | Visit | [address] [place] | | | | | | [address] | | | | | | [place] [address] | | | | | | [phone] | | | +--------+ + + + [...] Rd | | | | | | [place], [place] | | | | | | [address] | | | | | | [phone] | | | | | | | | +--------+ + + + + | 09/27/ | Telephone-S | Liver Transplant | Vimal Crowe MD | | | 2019 | c[place] | | [address] | | | | | | [address], | | | | | | [place] [address] | | | | | | [phone] | | | | | | | [...] Rd | | | | | | [place] | | | | | | [address] | | | | | | [phone] | | | | | | | | +--------+ + + + + documented as of this encounter Visit Diagnoses Not on filedocumented in this encounter"
--- OUTSIDE RECORDS SUMMARY | ~2020-07-29 | XMS | Encounter Summary ---
Demographics + + + | Address | [address] | | | [place] [address] | + + + | Home Phone [...] | | | | | [place] | | | | | [address] | | + + + + + Care Team Providers + +------+ + | Care Mimeograph Operator Name | Role | Phone | + +------+ + | Sharon David MD | PCP | | + +------+ + Reason for Visit + +--------+ + | Reason | Onset | Comments | | | Date | | + +--------+ + | Imaging Review | 02/18/ | | | | 2020 | | + +--------+ + Encounter Details +--------+ + + + + | Date | Type | Department | Care Team | Description | +--------+ + + + + | 02/18/ | Telephone | Nephrology & | Angélica Chao, | Imaging Review | | 2020 | | [facility] | MD [address] | | | | | [address] | [facility] | | | | | Loop [address] | [place], [place] | | | | | Pavilion, 3rd floor | [address] | | | | | [place], [place] | [phone] | | | | | [address] | | | | | | [phone] | | | +--------+ + + + [...] Telephone Encounter - Angélica Chao MD - 02/19/2020 3:30 PM PDTCXR received from [facility] pat. CXR report showed no pulm edema, no effusion, no infiltrates. CXR done bc of some dysp cy at night (but relatively stable weights and minimal edema). Reviewed results with avel paz. He notes dyspnea at night is not acutely worsening but is just "more noticeable" than bef ore. I will alert hepatology in case any additional concerns re this. Doesn't sound entirely typical but wonder if potential for steven. Re potassium, lokelma was approved and is being mailed to him today. Will try biw and hope for improvement in his now chronic hyperK. He has also cut down on milk since we discussed e huy this week. He will have repeat labs next week. Angélica Chao MD [facility] Professor Division of Nephrology and Hypertension Office tel: [phone] P M PDTdocumented in this encounter Plan of Treatment +--------+ + + + + | Date | Type | Specialty | Care Team | Description | +--------+ + + + + | 08/08/ | Telephone-S | Nephrology | Angélica Chao, | | 2019 | cheduled | | [address] | | | | | | [address] | | | | | | [place], [place] | | | | | | [address] | | | | | | [phone] | | | | | | | | +--------+ + + + + | 09/27/ | Telephone-S | Liver Transplant | Vimal Crowe MD | | | 2019 | cheduled | | [address] | | | | | | [facility] [address] [place], | | | | | | [place] [address] | | | | | | [phone] | | | | | | | [...] Rd | | | | | | [place], [place] | | | | | | [address] | | | | | | [phone] | | | | | | | | +--------+ + + + + documented as of this encounter Visit Diagnoses Not on filedocumented in this encounter
--- OUTSIDE RECORDS SUMMARY | ~2020-07-29 | XMS | Encounter Summary ---
Demographics + + + | Address | [address] | | | [place] [address] | + + + | Home Phone [...] [place] | | | | | [address] | | + + + + + Care Team Providers + +------+ + | Care Juke Box Mechanic Name | Role | Phone | + +------+ + | Sharon David MD | PCP | | + +------+ + Encounter Details +--------+ + + + + | Date | Type | Department | Care Team | Description | +--------+ + + + + | 11/20/ | Abstract | Clinical | Vimal Crowe MD | | | 2019 | | Transplant Services | [address] | | | | | [address] | [address] [place], | | | | | [place], | [place] [address] | | | | | [place] [address] | [phone] | | | | | [phone] | | | +--------+ + + + [...] Rd | | | | | | [place], [place] | | | | | | [address] | | | | | | [phone] | | | | | | | | +--------+ + + + + | 09/27/ | Telephone-S | Liver Transplant | Vimal Crowe MD | | | 2019 | [place] | | [address] | | | | | | [facility] [address] [place], | | | | | | [place] [address] | | | | | | [phone] | | | | | | | | +--------+ + + + + | 10/03/ | Appointment | Cardiology | | | | 2019 | | | | | +--------+ + + + + | 10/03/ | Office | Cardiology | Cyril Samuel | | | 2019 | Visit | Darren Gomez MD [address] | | | | | | [address] | | | | | | [place], [place] | | | | | | [address] | | | | | | [phone] | | | | | | | | +--------+ + + + + documented as of this encounter Visit Diagnoses Not on filedocumented in this encounter"
--- OUTSIDE RECORDS SUMMARY | ~2020-07-29 | XMS | Encounter Summary ---
Demographics + + + | Address | [address] | | | [place] [address] | + + + | Home Phone [...] + + | Author | [facility] | + + + | Organization | [facility] | + + + | [...] [place] | | | | | [address] | | + + + + + Care Team Providers + +------+ + | Care Silver Miner Blasting Name | Role | Phone | + +------+ + | Sharon David MD | PCP | | + +------+ + Encounter Details +--------+ + + + + | Date | Type | Department | Care Team | Description | +--------+ + + + + | 08/14/ | [facility] | Nephrology & | Alicia Canchola, | Steffen Duran | | 2019 | Encounter | [facility] | DO [address] | | | | | [address] | [address] | | | | | Loop [address] | [place], [place] | | | | | [address], [facility] floor | [address] | | | | | [place], [place] | [phone] | | | | | [address] | | | | | | [phone] | | | +--------+ + + + [...] Rd | | | | | | [place], [place] | | | | | | [address] | | | | | | [phone] | | | | | | | | +--------+ + + + + | 09/27/ | Telephone-S | Liver Transplant | Vimal Crowe MD | | | 2019 | cheduled | | [address] | | | | | | [address], | | | | | | [place] [address] | | | | | | [phone] | | | | | | | [...] Rd | | | | | | [place], [place] | | | | | | [address] | | | | | | [phone] | | | | | | | | +--------+ + + + + documented as of this encounter Visit Diagnoses Not on filedocumented in this encounter"
--- OUTSIDE RECORDS SUMMARY | ~2020-07-29 | XMS | Encounter Summary ---
Demographics + + + | Address | [address] | | | [place] [address] | + + + | Home Phone [...] [place] | | | | | [address] | | + + + + + Care Team Providers + +------+ + | Care Cleaning Professional Name | Role | Phone | + +------+ + | Sharon David MD | PCP | | + +------+ + Encounter Details +--------+ + + + + | Date | Type | Department | Care Team | Description | +--------+ + + + + | 04/13/ | Pharmacy | [facility] | | | | 2020 | Visit | [address] | | | | | | [address] | | | | | | [place] [address] | | | | | | [phone] | | | +--------+ + + + [...] Rd | | | | | | [place], [place] | | | | | | [address] | | | | | | [phone] | | | | | | | | +--------+ + + + + | 09/27/ | Telephone-S | Liver Transplant | Vimal Crowe MD | | | 2019 | cheduled | | [address] | | | | | | [address], | | | | | | [place] [address] | | | | | | [phone] | | | | | | | [...] Rd | | | | | | [place] | | | | | | [address] | | | | | | [phone] | | | | | | | | +--------+ + + + + documented as of this encounter Visit Diagnoses Not on filedocumented in this encounter"
--- OUTSIDE RECORDS SUMMARY | ~2020-07-29 | XMS | Encounter Summary ---
Demographics + + + | Address | [address] | | | [place] [address] | + + + | Home Phone [...] Author + + + | Author | [facility] | + + + | Organization | [facility] | + + + | [...] [place] | | | | | [address] | | + + + + + Care Team Providers + +------+ + | Care Clothing And Textiles Teacher Name | Role | Phone | + +------+ + | Sharon David MD | PCP | | + +------+ + Encounter Details +--------+ + + + + | Date | Type | Department | Care Team | Description | +--------+ + + + + | 12/04/ | Pharmacy | [facility] | | | | 2020 | Visit | [address] | [address] | | [address] | | | | | | [place] [address] | | | | | | [phone] | | | +--------+ + + + [...] Rd | | | | | | [place], [place] | | | | | | [address] | | | | | | [phone] | | | | | | | | +--------+ + + + + | 09/27/ | Telephone-S | Liver Transplant | Vimal Crowe MD | | | 2019 | cheduled | | [address] | | | | | | [address], | | | | | | [place] [address] | | | | | | [phone] | | | | | | | [...] Rd | | | | | | [place] | | | | | | [address] | | | | | | [phone] | | | | | | | | +--------+ + + + + documented as of this encounter Visit Diagnoses Not on filedocumented in this encounter"
--- OUTSIDE RECORDS SUMMARY | ~2020-07-29 | XMS | Encounter Summary ---
Demographics + + + | Address | [address] | | | [place] [address] | + + + | Home Phone | | + + + | Preferred Language | Unknown | + + + | Marital Status | Single | + + + | Restorationist Affiliation | NON | + + + [...] Mcdaniels ID | | | | | [id number] | | + + + + + Care Team Providers + +------+ + | Care Corporate Travel Manager Name | Role | Phone | + +------+ + | Sharon David MD | PCP | | + +------+ + Reason for Visit + + + | Reason | Comments | + + + | Lab findings, | | | teaching, guidance, | | | and counseling | | + + + Other (Routine) +--------+--------+ + + + + | Status | Reason | Specialty | Diagnoses / | Referred By | Referred To | | | | | Procedures | Contact | Contact | +--------+--------+ + + + + | Closed | | Hematology & | Diagnoses | Shatzel, | Hem | | | | Oncology | Anemia | Tyson Buchanan MD | Treatment | | | | | Procedures | [address] | | | | | [place] INJ | [address] | [address] | | | | | DARBEPOETIN | [address] | [facility] | | | | | [address] | [place], [place] | Health and | | | | | [place] | [address] | Healing, | | | | | THR/PRPH/DX | Phone: | [address] | | | | | INJ,SC/IM | [phone] | [place], [place] | | | | | Aranesp Inj | Fax: | [address] | | | | | | [phone] | Phone: | | | | | | | [phone] | | | | | | | Fax: | | | | | | | [phone] | +--------+--------+ + + + + Encounter Details +--------+ + + + + | Date | Type | Department | Care Team | Description | +--------+ + + + + | 11/09/ | Hospital | [facility] | Rn, Fast Track | | | 2019 | Encounter | Clinics at S | [address] | | | | | [address] | [place] [address] | | | | | [facility] | | | | | [facility], | | | | | | [address] | | | | | | [place], [place] | | | | | | [address] | | | | | | [phone] | | | +--------+ + + + [...] + + + | Blood Pressure | 141/78 | 11/09/2019 9:12 AM | | | | | PST | | + + + + + | Pulse | 65 | 11/09/2019 9:12 AM | | | | | PST | | + + + + + | Temperature | - | - | | + + + + + | Respiratory Rate | 16 | 11/09/2019 9:12 AM | | | | | PST | | + + + + + | Oxygen Saturation | 100% | 11/09/2019 9:12 AM | | | | | PST | | + + + + + | Inhaled Oxygen | - | - | | | Concentration | | | | + + + + + | Weight | 90.9 kg (200 lb 8 | 11/09/2019 9:12 AM | | | | oz) | PST | | + + + + + | Height | - | - | | + + + + + | Body Mass Index | 28.77 | 11/03/2019 10:05 AM | | | | | PST [...] + + documented as of this encounter Medications at Time of Discharge + + + +---------+ + + | Medication | Sig | Dispensed | Refills | Start | End Date | | | | | | Date | | + + + +---------+ + + | Alcohol Swabs | Apply 1 each to | 200 | 1 | 08/24/20 | | | topical pads, | affected area five | each | | 19 | | | medicated | times daily. Use as | | | | | | | directed. | | | | | + + + +---------+ + + | aspirin EC 325 mg | Take 1 tablet by | 100 | 5 | 08/16/20 | | | oral tablet,delayed | mouth once daily. | tablet | | 19 | | | release (DR/EC) | | | | | | + + + +---------+ + + | BASAGLAR KWIKPEN | Inject 10 Units | 15 mL | 1 | 10/26/19 | | | U-100 INSULIN 100 | under the skin | | | 20 | | | unit/mL (3 mL) | (SUBC) once daily at | | | | | | subcutaneous insulin | bedtime. | | | | | | penIndications: | Indications: type 2 | | | | | | type 2 diabetes | diabetes mellitus | | | | | | mellitus | | | | | | + + + +---------+ + + | Blood Sugar | Use 1 test strip to | 100 | 5 | 10/26/19 | | | Diagnostic | check blood sugar | each | | 20 | | | (FREESTYLE LITE | two times daily | | | | | | STRIPS) | before meals. | | | | | | miscellaneous (misc) | Indications: type 2 | | | | | | stripIndications: | diabetes mellitus | | | | | | type 2 diabetes | | | | | | | mellitus | | | | | | + + + +---------+ + + | Blood-Glucose | Use as directed. Use | 1 each | 0 | 08/24/20 | | | Meter (FREESTYLE | as directed. | | | 19 | | | LITE METER) | | | | | | | miscellaneous (misc) | | | | | | | kit | | | | | | + + + +---------+ + + | Insulin Ida | Use as directed for | 150 | 5 | 08/24/20 | | | (Disposable) | 5 insulin injections | each | | 19 | | | (COMFORT EZ PEN | per day. | | | | | | NEEDLES) 31 gauge x | | | | | | | 03/05" miscellaneous | | | | | | | (misc) needle | | | | | | + + + +---------+ + + | lancets (FREESTYLE | Test blood sugar | 150 | 5 | 08/24/20 | | | LANCETS) 28 gauge | four times daily | each | | 19 | | | miscellaneous (misc) | (before each meal | | | | | | miscIndications: | and at bedtime). | | | | | | type 2 diabetes | Indications: type 2 | | | | | | mellitus | diabetes mellitus | | | | | + + + +---------+ + + | magnesium oxide | Take 2 tablets by | 100 | 5 | 09/11/20 | | | 250 mg elemental | mouth two times | tablet | | 19 | | | oral tablet | daily. | | | | | + + + +---------+ + + documented as of this encounter Progress Notes Maricruz Johnston, RN - 11/09/2019 9:36 AM PSTFormatting of this note might be different from dominick eduardo original. Nurse Note Past illnesses: Steffen has a past medical history of Cirrhosis (HCC) and CKD (chronic kidn ey disease). Allergies: Steffen is allergic to doxycycline. Narrative: Donell comes to [facility] for possible aranesp injection Nursing Assessment: Pain: denies Fever or chills: no Energy: ok Dizziness: no HEENT: WDL Dyspnea, cough: JURADO Signs of bleeding: no Nausea, vomiting or loss of appetite: no Fluid intake: "could be better" Edema: B LE moderate, but "improving" Vascular Access: labs drawn in starter Labs: Lab Results Component Value Date WBC 1.57 (L) 11/09/2019 RBC 3.46 (L) 11/09/2019 HB 10.2 (L) 11/09/2019 HCT 31.7 (L) 11/09/2019 PLT 73 (L) 11/09/2019 NEUTROPHILCO 0.72 (L) 11/09/2019 Lab Results Component Value Date NA 139 11/09/2019 K 5.5 (H) 11/09/2019 MG 1.5 (L) 11/09/2019 PO4 5.4 (H) 11/09/2019 BUN 28 (H) 11/09/2019 CR 1.59 (H) 11/09/2019 AST 13 11/09/2019 ALT 20 11/09/2019 TBILI 0.3 11/09/2019 Lab Results Component Value Date FERRITIN 3,007 (H) 08/15/2019 Lab Results Component Value Date IRON 42 (L) 11/09/2019 IRONBINDCAP 240 11/09/2019 SATTRANSFERR 18 (L) 11/09/2019 FERRITIN 3,007 (H) 08/15/2019 BP Readings from Last 1 Encounters: 11/09/19 141/78 Per Orders: Iron Sat < 20% - no aranesp today In basket sent to Tyson Bellamy MD if he wants Ferritin lab add on from today's draw Patient was reminded to call clinic with temp > 100.4, chills, s/s of bleeding or uncontrol led N/V/D/C. Patient d/c d in stable condition. Next Appointment in [facility] is on 0 11/10/19 at 3:20 pm with Angélica Chao MD. Maricruz Jimenez RN documented in this encoun ter Plan of Treatment +--------+ + + + + | Date | Type | Specialty | Care Team | Description | +--------+ + + + + | 08/08/ | Telephone-S | Nephrology | Angélica Chao, | | | 2019 | cherohini | | [address] | | | | | | [address] | | | | | | [place], [place] | | | | | | [address] | | | | | | [phone] | | | | | | | | +--------+ + + + + | 09/27/ | Telephone-S | Liver Transplant | Vimal Crowe MD | | 2019 | cheduled | | [address] | | | | | | [address], | | | | | | [place] [address] | | | | | | [phone] | | | | | | | | +--------+ + + + + | 10/03/ | Appointment | Cardiology | | | | 2019 | | | | | +--------+ + + + + | 10/03/ | Office | Cardiology | Cyril Samuel | | | 2019 | Visit | | MD Patricia [address] | | | | | | [address] | | | | | | [place], [place] | | | | | | [address] | | | | | | [phone] | | | | | | | | +--------+ + + + + documented as of this encounter Visit Diagnoses + + | Diagnosis | + + | Anemia due to chronic kidney disease, unspecified CKD stage - Primary | + + documented in this encounter
--- OUTSIDE RECORDS SUMMARY | ~2020-07-29 | XMS | Encounter Summary ---
Demographics + + + | Address | [address] | | | [place] [address] | + + + | Home Phone [...] [place] | | | | | [address] | | + + + + + Care Team Providers + +------+ + | Care Defence Force Senior Officer Name | Role | Phone | + +------+ + | Sharon David MD | PCP | | + +------+ + Encounter Details +--------+------+ + + + | Date | Type | Department | Care Team | Description | +--------+------+ + + + | 09/21/ | Lab | [facility] at [facility] | | Liver transplant | | 2019 | | [address] | | status (HCC) | | | | [address] | | | | | | [place], [address] floor | | | | | | [place], [place] | | | | | | [address] | | | | | | [phone] | | | +--------+------+ + + + [...] [address] | | | | | | [facility] [place] | | | | | | [address] | | | | | | [phone] | | | | | | | | +--------+ + + + + | 09/27/ | Telephone-S | Liver Transplant | Vimal Crowe MD | | | 2019 | [place] | | [address] | | | | | | [address], | | | | | | [place] [address] | | | | | | [phone] | | | | | | | [...] [address] | | | | | | [place], [place] | | | | | | [address] | | | | | | [phone] | | | | | | | | +--------+ + + + + documented as of this encounter Procedures + +--------+ + + + | Procedure Name | Priori | Date/Time | Associated Diagnosis | Comments | | | ty | | | | + +--------+ + + + | CBC AND AUTO DIFF | Routin | 09/21/2019 | Liver transplant | Results for this | | | e | 8:27 AM | status (HCC) | procedure are in the | | | | PST | | results section. | + +--------+ + + + | CBC, WITH | Routin | 09/21/2019 | Liver transplant | Results for this | | DIFFERENTIAL | e | 8:27 AM | status (HCC) | procedure are in the | | | | PST | | results section. | + +--------+ + + + | COMPLETE METABOLIC | Routin | 09/21/2019 | Liver transplant | Results for this | | SET | e | 8:27 AM | status (HCC) | procedure are in the | | (NA,K,CL,CO2,BUN,CRE | | PST | | results section. | | AT,GLUC,CA,AST,ALT,B | | | | | | KEV TOTAL,ALK | | | | | | PHOS,ALB,PROT TOTAL) | | | | | + +--------+ + + + | TACROLIMUS, WHOLE | Routin | 09/21/2019 | Liver transplant | Results for this | | BLOOD | e | 8:27 AM | status (HCC) | procedure are in the | | | | PST | | results section. | + +--------+ + + + | PHOSPHORUS, PLASMA | Routin | 09/21/2019 | Liver transplant | Results for this | | | e | 8:27 AM | status (HCC) | procedure are in the | | | | PST | | results section. | + +--------+ + + + | BILIRUBIN DIRECT | Routin | 09/21/2019 | Liver transplant | Results for this | | | e | 8:27 AM | status (HCC) | procedure are in the | | | | PST | | results section. | + +--------+ + + + | URIC ACID, PLASMA | Routin | 09/21/2019 | Liver transplant | Results for this | | | e | 8:27 AM | status (HCC) | procedure are in the | | | | PST | | results section. | + +--------+ + + + | MAGNESIUM, PLASMA | Routin | 09/21/2019 | Liver transplant | Results for this | | | e | 8:27 AM | status (HCC) | procedure are in the | | | | PST | | results section. | + +--------+ + + + documented in this encounter Results CBC AND AUTO DIFF (09/21/2019 8:27 AM PST) + + + + + + | Component | Value | Ref Range | Performed | Pathologist | | | | | At | Signature | + + + + + + | WHITE CELL | 3.72 | 3.50 - 10.80 | [facility] | | | COUNT | | K/cu mm | LABORATORY | | | | | | SERVICES, | | | | | | CORE | | + + + + + + | RED CELL | 2.93 (L) | 4.50 - 6.00 | [facility] | | | COUNT | | M/cu mm | LABORATORY | | | | | | SERVICES, | | | | | | CORE | | + + + + + + | HEMOGLOBIN | 8.9 (L) | 13.5 - 17.5 | [facility] | | | | | g/dL | LABORATORY | | | | | | SERVICES, | | | | | | CORE | | + + + + + + | HEMATOCRIT | 28.3 (L) | 41.0 - 53.0 % | [facility] | | | | | | LABORATORY | | | | | | SERVICES, | | | | | | CORE | | + + + + + + | MCV | 96.6 | 80.0 - 100.0 fL | [facility] | | | | | | LABORATORY | | | | | | SERVICES, | | | | | | CORE | | + + + + + + | MCHC | 31.4 (L) | 32.0 - 36.0 | [facility] | | | | | g/dL | LABORATORY | | | | | | SERVICES, | | | | | | CORE | | + + + + + + | RDW SD | 55.1 (H) | 35.1 - 46.3 fL | [facility] | | | | | | LABORATORY | | | | | | SERVICES, | | | | | | CORE | | + + + + + + | PLATELET | 115 (L) | 150 - 400 K/cu | [...] + + + + | NEUTROPHIL | 70.8 (H) | 50.0 - 70.0 % | [facility] | | | % | | | LABORATORY | | | | | | SERVICES, | | | | | | CORE | | + + + + + + | LYMPHOCYTE | 21.2 | 18.0 - 42.0 % | [facility] | | | % | | | LABORATORY | | | | | | SERVICES, | | | | | | CORE | | + + + + + + | MONOCYTE % | 4.8 | 3.5 - 9.0 % | [facility] | | | | | | LABORATORY | | | | | | SERVICES, | | | | | | CORE | | + + + + + + | EOS % | 2.4 | 1.0 - 3.0 % | [facility] | | | | | | LABORATORY | | | | | | SERVICES, | | | | | | CORE | | + + + + + + | BASO % | 0.5 | 0.0 - 2.0 % | [facility] [...] + + + + | NEUTROPHIL | 2.63 | 1.80 - 7.70 | [facility] | | | # | | K/cu mm | LABORATORY | | | | | | SERVICES, | | | | | | CORE | | + + + + + + | LYMPHOCYTE | 0.79 (L) | 1.00 - 4.80 | [facility] | | | # | | K/cu mm | LABORATORY | | | | | | SERVICES, | | | | | | CORE | | + + + + + + | MONOCYTE # | 0.18 | 0.10 - 0.90 | [facility] | | | | | K/cu mm | LABORATORY | | | | | | SERVICES, | | | | | | CORE | | + + + + + + | EOS # | 0.09 | 0.00 - 0.50 | [facility] | | | | | K/cu mm | LABORATORY | | | | | | SERVICES, | | | | | | CORE | | + + + + + + | BASO # | 0.02 | 0.00 - 0.10 | [...] | + + + + + | [facility] | [address] | [place] [address] | | | SERVICES, CORE | [address] | | | + + + + + URIC ACID, PLASMA (09/21/2019 8:27 AM PST) + +-------+ + + + | Component | Value | Ref Range | Performed | Pathologist | | | | | At | Signature | + +-------+ + + + | URIC ACID, | 7.8 | 3.7 - 8.0 mg/dL | [facility] [...] LABORATORY | [address] | [place] [address] | | | SERVICES, CORE | [address] | | | + + + + + TACROLIMUS, WHOLE BLOOD (09/21/2019 8:27 AM PST) + +-------+ + + + | Component | Value | Ref Range | Performed | Pathologist | | | | | At | Signature | + +-------+ + + + | TACROLIMUS | 12.8 | 5.0 - 15.0 | [facility] | [...] | Test performed by immunoassay using Palafox Card Puncher i2000. . | [facility] | | Samples [...] [facility] | [address] | [place] [address] | | | SERVICES, SPECIAL | [address] | | | | IMM + COAG | | | | + + + + + BILIRUBIN DIRECT (09/21/2019 8:27 AM PST) + +---------+ + + + | Component | Value | Ref Range | Performed | Pathologist | | | | | At | Signature | + +---------+ + + + | BILIRUBIN | 0.4 (H) | 0.0 - 0.3 mg/dL | [facility] | | | DIRECT | | | LABORATORY | | | | | | SERVICES, | | | | | | CORE | | + +---------+ + + + | ELLYN Johnson CMNT | No Hemo | | [facility] [...] [facility] | [address] | [place] [address] | | | SERVICES, CORE | [address] | | | + + + + + PHOSPHORUS, PLASMA (09/21/2019 8:27 AM PST) + +-------+ + + + | Component | Value | Ref Range | Performed | Pathologist | | | | | At | Signature | + +-------+ + + + | PHOSPHORUS, | 4.2 | 2.4 - 4.7 mg/dL | [facility] [...] [facility] | [address] | [place] [address] | | | SERVICES, CORE | [address] | | | + + + + + MAGNESIUM, PLASMA (09/21/2019 8:27 AM PST) + +---------+ + + + [...] | + + + + + | [facility] | [address] | [place] [address] | | | SERVICES, CORE | [address] | | | + + + + + COMPLETE METABOLIC SET (NA,K,CL,CO2,BUN,CREAT,GLUC,CA,AST,ALT,BILI TOTAL,ALK PHOS,ALB,PROT TOTAL) (09/21/2019 8:27 AM PST) + + + + + + | Component | Value | Ref Range | Performed | Pathologist | | | | | At | Signature | + + + + + + | GLUCOSE, | 133 (H) | 70 - 99 mg/dL | [facility] | | | PLASMA | | | LABORATORY | | | (LAB) | | | SERVICES, | | | | | | CORE | | + + + + + + | BUN, PLASMA | 24 (H) | 6 - 20 mg/dL | [facility] | | | (LAB) | | | LABORATORY | | | | | | SERVICES, | | | | | | CORE | | + + + + + + | CREATININE | 2.09 (H) | 0.70 - 1.30 | [facility] | | | PLASMA | | mg/dL | LABORATORY | | | (LAB) | | | SERVICES, | | | | | | CORE | | + + + + + + | EGFR | 40 (L) | >60 mL/min | [facility] | | | - | | | LABORATORY | | | [place]TS[place]IAN | | | SERVICES, | | | | | | CORE | | + + + + + + | EGFR NON | 33 (L) | >60 mL/min | [facility] | | | -COREY | | | LABORATORY | | | RICAN | | | SERVICES, | | | | | | CORE | | + + + + + + | SODIUM, | 138 | 136 - 145 | [facility] | | | PLASMA | | mmol/L | LABORATORY | | | (LAB) | | | SERVICES, | | | | | | CORE | | + + + + + + | POTASSIUM, | 5.2 (H) | 3.4 - 5.0 | [facility] [...] + + | CALCIUM, | 9.3 | 8.6 - 10.2 | [facility] | | | PLASMA | | mg/dL | LABORATORY | | | (LAB) | | | SERVICES, | | | | | | CORE | | + + + + + + | CALCIUM(ALB | 9.2 | 8.6 - 10.2 | [facility] | | | CORRECTED) | | mg/dL | LABORATORY | | | | | | SERVICES, | | | | | | CORE | | + + + + + + | BILIRUBIN | 0.7 | 0.3 - 1.2 mg/dL | [facility] | | | TOTAL | | | LABORATORY | | | | | | SERVICES, | | | | | | CORE | | + + + + + + | TOTAL | 6.6 | 6.4 - 8.2 g/dL | [facility] | | | PROTEIN, | | | LABORATORY | | | PLASMA | | | SERVICES, | | | (LAB) | | | CORE | | + + + + + + | ALBUMIN, | 4.1 | 3.5 - 4.7 g/dL | [facility] | | | PLASMA | | | LABORATORY | | | (LAB) | | | SERVICES, | | | | | | CORE | | + + + + + + | ALK PHOS | 60 | 53 - 128 U/L | [facility] | | | | | | LABORATORY | | | | | | SERVICES, | | | | | | CORE | | + + + + + + | AST(SGOT) | 20 | <=41 U/L | [facility] | | [...] + + + | ANION GAP | 5 | 4 - 11 mmol/L [...] | + + + + + | [facility] | [address] | [place] [address] | | | [address] | [address] | | | + + + + + documented in this encounter Visit Diagnoses + + | Diagnosis | + + | Liver transplant status (HCC) | + + documented in this encounter"
--- OUTSIDE RECORDS SUMMARY | ~2020-07-29 | XMS | Encounter Summary ---
Demographics + + + | Address | [address] | | | [place] [address] | + + + | Home Phone [...] Author + + + | Author | [facility] | + + + | Organization | [facility] | + + + | [...] [place] | | | | | [address] | | + + + + + Care Team Providers + +------+ + | Care Web Feeder Name | Role | Phone | + +------+ + | Sharon David MD | PCP | | + +------+ + Reason for Visit Benefits Check (Routine) +--------+--------+ + + + + | Status | Reason | Specialty | Diagnoses / | Referred By | Referred To | | | | | Procedures | Contact | Contact | +--------+--------+ + + + + | Closed | | Nephrology | | Frankie, | [facility] | | | | | | Sharon | [facility] [address] | | | | | | MD Lei | [address] | | | | | | [address] | | | | | [address] | [address], | | | | | | [place], | 3rd floor | | | | | | [place] [address] | [facility] [place] | | | | | | Phone: | [phone] | | | | | | [phone] | Phone: | | | | | | Fax: | [phone] | | | | | | [phone] | Fax: | | | | | | | [phone] | +--------+--------+ + + + + Encounter Details +--------+---------+ + + + | Date | Type | Department | Care Team | Description | +--------+---------+ + + + | 11/10/ | Office | Nephrology & | Angélica Chao, | CKD (chronic kidney | | 2020 | Visit | Hypertension at [facility] | MD [address] | disease) stage 3, | | | | [address] | [address] | GFR 30-59 ml/min | | | | [address] | [place], [place] | (HCC) (Primary Dx); | | | | [address], 3rd floor | [address] | Hyperkalemia; KAR | | | | [place], [place] | [phone] | (acute kidney | | | | [address] | | injury) ([facility]); | | | | [phone] | | Edema, unspecified | | | | | | type | +--------+---------+ + + + Social History [...] + + + | Blood Pressure | 143/89 | 11/10/2019 3:28 PM | | | | | PST | | + + + + + | Pulse | 65 | 11/10/2019 3:28 PM | | | | | PST | | + + + + + | Temperature | 36.1 C (97 F) | 11/10/2019 3:28 PM | | | | | PST | | + + + + + | Respiratory Rate | - | - | | + + + + + | Oxygen Saturation | 100% | 11/10/2019 3:28 PM | | | | | PST | | + + + + + | Inhaled Oxygen | - | - | | | Concentration | | | | + + + + + | Weight | 90.9 kg (200 lb 4.8 | 11/10/2019 3:28 PM | | | | oz) | PST | | + + + + + | Height | 180.3 cm (5' 11") | 11/10/2019 3:28 PM | | | | | PST | | + + + + + | Body Mass Index | 27.94 | 11/10/2019 3:28 PM | | | | | PST | [...] Instructions Patient Instructions Angélica Chao MD - 11/10/2019 3:30 PM PST1. I think taking the ka yexalate when you get home today sounds great, as does a second dose this evening. If you do n't have a bowel movement, let me know. Rechecking labs next Saturday or sooner is a good idea . 2. I think resuming the nepro is a great idea. 3. I recommend limiting the salt in your diet as you can, as that should help with your leg swelling. 4. I'd recommend tracking your weight to make sure it's not climbing every day. If you gain more than a pound a day, please call. If you feel like your leg swelling is getting worse i nstead of better, please call me. 5. If you notice you have two or more blood pressure readings where the upper number is abo ve 140 or lower number is above 90, let me know. 6. I can see you back on February 15 at 3:30. documented in this encounter Progress Notes Angélica Chao MD - 11/10/2019 3:30 PM PSTFormatting of this note might be different fr om the original. Date of service: 11/10/2019 3:31 PM Reason for visit: F/u KAR ASSESSMENT: Mr. Duran is a 54 yo gentleman with hx ESLD now s/p OLT Jul 2019, with kar requ iring dialysis clara-op who presents for follow up of CKD. He initially had KAR in the settin g of ESLD. His KAR was felt to be multifactorial (hemodynamic - HRS +/- ATN and then potenti ally exacerbated by tacrolimus and bactrim). He underwent OLT in Jul 2019. He was on dialysi s post OLT, from 08/22-09/01. On 09/01 during first (and only) dialysis at outpatient unit, georgette eduardo developed pruritic hives on both forearms shortly after starting dialysis. He had received only heparin at that time. He was using the same dialyzer (revaclear 300) that he had used twice in the hospital. He had been receiving heparin for TDC locking while in hospital. Dial ysis was stopped, TDC packed with citrate. On follow up labs on 09/03, creatinine continued to be <2 so dialysis was discontinued. TDC was removed in Aug 2019. Creatinine since dialys is discontinuation has been 1.6-2.2 Potassium remained elevated until bactrim was changed to atovaquone (after which it improved to be mostly in the mid 4's-5 range). Pt was readmitted in Sep with FTT and depression. He reports feeling improved since disch arge. Now on mirtazapine, sleeping well with good appetite per pt. He notes peripheral edema had inc'd while hospitalized but has been slowly improving at home without diuretics. He st charli with moderating diet, azeb Na intake, per his report. He had labs yesterday with K 5. 5 - given kayexalate today by txp team and plans to take this evening. He notes he drank ora nge juice on Saturday, and he suspects that is why K is higher. PLAN: -KAR --> resolved --> now CKD: Creatinine post kar has settled into the 1.6-2 range for mos t values, c/w CKD IIIb/IV; given the challenges with his potassium, I'm inclined to think cr eatinine may be over-estimating renal function (likely related to still-recovering low muscl e mass). Will plan to check upc at next appt in January. I do think he would benefit from ongo ing nephrology follow up given significant CKD. He is coming up to [facility] in January and I can s ee him same day as next hepatology appt, so plan to see him then. He may want to transition to nephrology care closer to home in the future. Cont to avoid prolonged use of nsaids. -Edema/HTN: BP is not unreasonable here and pt notes edema is improving at home. He did hav e mild kar with diuretics in August. Will not adjust regimen for now. However, if edema wo rsens and/or BP increases, consider trial of chlorthalidone (mild diuretic and potent kaliur etic). Recommended that he decrease Na intake. -HyperK: still requiring low K diet. As above, suspect eGFR may be worse than it appears gi dragan persistence of hyperK off bactrim. Plan for kayexalate today as per rx from his txp team . Recheck labs next Saturday per pt. Cont low K diet - he reports he does have low K diet hand out (offered another copy today). -Anemia: slowly improving and following with hematology. Defer to hematology for management . -R/o mineral bone disease: checking PTH with next lab draw. F/u: 3 mo ([facility] clinic) Angélica Chao MD [facility] Division of Nephrology and Hypertension Office tel: [phone] I spent 20 minutes with this patient today, >50% of which was spent counseling [...] Aug 2019) -s/p OLT Aug 16, 2019 ([facility]) 2. KAR --> CKD -multifactorial around time of OLT (hemodynamic/HRS, bactrim, tacrolimus) -HD initiated 08/22/19 for azotemia, hypervolemia; stopped after 09/01/19 with e/o renal rec overy 3. Malnutrition 4. SVT/Afib 5. Elevated CBGs 2/2 medications -on insulin post OLT Pre-clinic chart review (from outside/internal medical record review): Admitted in Sep with FTT and depression. Mirtazepine resumed. He has been followed recently by nayana for iron ove rload. He has also been in PT for improving strength/ambulation. Bactrim prophy changed to a tovaquone. S: Here by himself today. He's going back to [place] next week. He has 3 kids in the are a. He notes peripheral edema had complete resolved but then recurred after last admission in [place]-early Oct. He notes he's feeling really well. He's been on his feet a lot today. He hate s compression stockings. The swelling did resolve overnight last night. No sob, mcintyre, orthopn ea. He's already been contacted re higher K and will take kayexalate when he gets home. He ambar es diet changes or constipation but he had orange juice on Saturday before labs. He does feel he's eating okay, appetite is pretty good. He recently started nepro again. He does not have BP cuff at home. ROS: No CP. No dysuria, hematuria. No urinary hesitancy. Does have nocturia sometimes depen ding on how much he drinks in the evening. No vision changes. No rashes or skin changes - sk in does feel dry. Reviewed systems include constitutional, eyes, nose/throat, musculoskele hillary, psych, cardiovascular, respiratory, GI, , skin. Current Outpatient [...] Take 10 mL by mouth once daily. BASAGLAR KWIKPEN U-100 INSULIN 100 unit/mL (3 [...] Use as directed. Us e as directed. fludrocortisone 0.1 mg oral tablet Take 1 tablet by mouth once daily. glimepiride 1 mg oral tablet Take 1 tablet by mouth once daily with breakfast. Indicati ons: type 2 diabetes mellitus Insulin [place] (Disposable) (COMFORT EZ PEN NEEDLES) 31 gauge x 5/16" miscellaneous ([facility]) needle Use as directed for 5 insulin injections per day. lancets (FREESTYLE LANCETS) 28 gauge miscellaneous (misc) misc Test blood sugar four ti mes daily (before each meal and at bedtime). Indications: type 2 diabetes mellitus magnesium oxide 250 mg elemental oral tablet Take 2 tablets by mouth two times daily. metoprolol succinate 25 mg oral tablet extended release 24 hr Take 1 tablet by mouth on ce daily. Indications: high blood pressure mirtazapine 30 mg oral tablet Take 1 tablet by mouth once daily in the evening. Indicat ions: lack of appetite sodium polystyrene (KAYEXALATE) oral powder Take 30 grams now and 30 grams tonight Joceline cations: high levels of potassium in the blood tacrolimus 1 mg oral capsule Take 4 capsules by mouth two times daily. Indications: niels er transplant rejection prevention valGANciclovir 450 mg oral tablet Take 1 tablet by mouth once daily. Indications: viral infection prevention No current facility-administered medications for this visit. O: Vitals: 11/10/19 1528 BP: 143/89 Pulse: 65 Temp: 36.1 C (97 F) TempSrc: Forehead SpO2: 100% Weight: 90.9 kg (200 lb 4.8 oz) Height: 1.803 m (5' 11") PainSc: 0 - Zero Gen: awake, alert, nad Eyes/mouth: PERRLA, moist oral mucosa CV: Heart sounds have regular rate and rhythm. Resp: Lungs are clear on auscultation bilaterally. Abd: Bowel sounds are positive, abdomen is soft and not distended Arms/legs: soft 2-3 mm edema from ~1/2 up ant tib to ankles/feet bilat. No wounds or weepin g Labs: Recent Labs 10/29/19 0810 11/02/19 1010 11/09/19 0753 NA 141 141 139 K 4.4 4.6 5.5* CL 108 109* 104 BICARB 31 29 30 BUN 43* 23* 28* CR 2.23* 1.46* 1.59* GLU 120* 127* 116* CA 8.7 8.9 9.0 AST 11 15 13 ALT 22 22 20 AP 55 56 49* TBILI 0.2* 0.3 0.3 TP 6.2* 6.1* 6.0* ALB 3.5 3.4* 3.3* Lab Results Component Value Date PO4 5.4 11/09/2019 Lab Results Component Value Date MG 1.5 11/09/2019 No results found for: PTH Lab Results Component Value Date SATTRANSFERR 18 (L) 11/09/2019 SATTRANSFERR 82 (H) 08/15/2019 SATTRANSFERR 105 (H) 04/21/2019 Lab Results Component Value Date FERRITIN 3,007 (H) 08/15/2019 Recent Labs 10/29/19 0810 11/02/19 1010 11/09/19 0753 WBC 3.68 2.56* 1.57* RBC 3.58* 3.45* 3.46* HB 10.0* 9.7* 10.2* HCT 32.6* 31.7* 31.7* PLT 75* 77* 73* NEUTROPERC 65.5 57.8 45.9* LYMPHPERC 21.2 22.7 36.9 MONOPERC 8.2 10.5* 8.3 BASOPERC 0.5 1.6 1.3 EOSPERC 3.5* 6.6* 7.0* Please see A/P at top of this note. documented in this e ncounter Plan of Treatment +--------+ + + + + | Date | Type | Specialty | Care Team | Description | +--------+ + + + + | 08/08/ | Telephone-S | Nephrology | Angélica Chao, | | 2019 | cherohini | | [address] | | | | | | [address] | | | | | | [place], [place] | | | | | | [address] | | | | | | [phone] | | | | | | | | +--------+ + + + + | 09/27/ | Telephone-S | Liver Transplant | Vimal Crowe MD | | | 2019 | cheduled | | [address] | | | | | | [address], | | | | | | [place] [address] | | | | | | [phone] | | | | | | | [...] Rd | | | | | | [place], [place] | | | | | | [address] | | | | | | [phone] | | | | | | | | +--------+ + + + + documented as of this encounter Results PTH, SERUM (11/16/2019 7:41 AM PST) + +-------+ + + + | Component | Value | Ref Range | Performed | Pathologist | | | | | At | Signature | + +-------+ + + + | PTH, SERUM | 19 | 18 - 88 pg/mL | [facility] | | | | [...] + + + + + | [facility] | [address] | [place] [address] | | | SERVICES, CORE | [address] | | | + + + + + documented in this encounter Visit Diagnoses + + | Diagnosis | + + | CKD (chronic kidney disease) stage 3, GFR 30-59 ml/min - Primary Chronic kidney | | disease, Stage III (moderate) | + + | Hyperkalemia Hyperpotassemia | + + | KAR (acute kidney injury) (HCC) Acute kidney failure, unspecified | + + | Edema, unspecified type | + + documented in this encounter
--- OUTSIDE RECORDS SUMMARY | ~2020-07-29 | XMS | Encounter Summary ---
Demographics + + + | Address | [address] | | | [place] [address] | + + + | Home Phone [...] [place] | | | | | [address] | | + + + + + Care Team Providers + +------+ + | Care Chief Of Vital Statistics Name | Role | Phone | + +------+ + | Sharon David MD | PCP | | + +------+ + Encounter Details +--------+ + + + + | Date | Type | Department | Care Team | Description | +--------+ + + + + | 02/15/ | Pharmacy | [facility] | | | | 2020 | Visit | [address] | [address] | | | | | | [place] [address] | | | | | | [phone] | | | +--------+ + + + [...] [address] | | | | | | [place], [place] | | | | | | [address] | | | | | | [phone] | | | | | | | | +--------+ + + + + | 09/27/ | Telephone-S | Liver Transplant | Vimal Crowe MD | | | 2019 | cheduled | | [address] | | | | | | [address], | | | | | | [place] [address] | | | | | | [phone] | | | | | | | [...] Rd | | | | | | [place] | | | | | | [address] | | | | | | [phone] | | | | | | | | +--------+ + + + + documented as of this encounter Visit Diagnoses Not on filedocumented in this encounter"
--- OUTSIDE RECORDS SUMMARY | ~2020-07-29 | XMS | Encounter Summary ---
Demographics + + + | Address | [address] | | | [place] [address] | + + + | Home Phone | | + + + | Preferred Language | Unknown | + + + | Marital Status | Single | + + + | Pentecostal Affiliation | NON | + + + [...] [place] | | | | | [address] | | + + + + + Care Team Providers + +------+ + | Care Autoclave Operator Name | Role | Phone | + +------+ + | Sharon David MD | PCP | | + +------+ + Encounter Details +--------+------+ + + + | Date | Type | Department | Care Team | Description | +--------+------+ + + + | 03/19/ | Lab | [facility] | | Pulmonary | | 2019 | | [address] | | hypertension (HCC); | | | [facility] | Pre-operative | | | | and Healing, | | cardiovascular | | | | Building [address] | | examination; Other | | | | [place], [place] | | cirrhosis of liver | | | | [address] | | (HCC) | | | | [phone] | | | +--------+------+ + + + [...] [address] | | | | | | [place], [place] | | | | | | [address] | | | | | | [phone] | | | | | | | | +--------+ + + + + | 09/27/ | Telephone-S | Liver Transplant | Vimal Crowe MD | | | 2019 | [place] | | [address] | | | | | | [address], | | | | | | [place] [address] | | | | | | [phone] | | | | | | | | +--------+ + + + + | 10/03/ | Appointment | Cardiology | | | | 2019 | | | | | +--------+ + + + + | 10/03/ | Office | Cardiology | Cyril Samuel | | | 2019 | Visit | | MD Patricia [address] [facility] | | | | | | [address] | | | | | | [place], [place] | | | | | | [address] | | | | | | [phone] | | | | | | | | +--------+ + + + + documented as of this encounter Procedures + +--------+ + + + | Procedure Name | Priori | Date/Time | Associated Diagnosis | Comments | | | ty | | | | + +--------+ + + + | PHOSPHATIDYLETHANOL | Routin | 03/19/2019 | Other cirrhosis of | Results for this | | (PETH) | e | 12:15 PM | liver (HCC) | procedure are in the | | | | PDT | | results section. | + +--------+ + + + | NT-PRO BNP | Routin | 03/19/2019 | Pulmonary | Results for this | | | e | 12:15 PM | hypertension (HCC) | procedure are in the | | | | PDT | Pre-operative | results section. | | | | | cardiovascular | | | | | | examination | | + +--------+ + + + | HEMOCHROMATOSIS H63D | Routin | 03/19/2019 | Other cirrhosis of | Results for this | | | e | 12:15 PM | liver (HCC) | procedure are in the | | | | PDT | | results section. | + +--------+ + + + | HEMOCHROMATOSIS | Routin | 03/19/2019 | Other cirrhosis of | Results for this | | (C282Y), BLOOD | e | 12:15 PM | liver (HCC) | procedure are in the | | | | PDT | | results section. | + +--------+ + + + | INR | Routin | 03/19/2019 | Other cirrhosis of | Results for this | | | e | 12:15 PM | liver (HCC) | procedure are in the | | | | PDT | | results section. | + +--------+ + + + | COMPLETE METABOLIC | Routin | 03/19/2019 | Other cirrhosis of | Results for this | | SET | e | 12:15 PM | liver (HCC) | procedure are in the | | (NA,K,CL,CO2,BUN,CRE | | PDT | | results section. | | AT,GLUC,CA,AST,ALT,B | | | | | | KEV TOTAL,ALK | | | | | | PHOS,ALB,PROT TOTAL) | | | | | + +--------+ + + + | FERRITIN | Routin | 03/19/2019 | Other cirrhosis of | Results for this | | | e | 12:15 PM | liver (HCC) | procedure are in the | | | | PDT | | results section. | + +--------+ + + + | BILIRUBIN DIRECT | Routin | 03/19/2019 | Other cirrhosis of | Results for this | | | e | 12:15 PM | liver (HCC) | procedure are in the | | | | PDT | | results section. | + +--------+ + + + | IRON AND TIBC, SERUM | Routin | 03/19/2019 | Other cirrhosis of | Results for this | | | e | 12:15 PM | liver (HCC) | procedure are in the | | | | PDT | | results section. | + +--------+ + + + documented in this encounter Results PHOSPHATIDYLETHANOL (PETH) (03/19/2019 12:15 PM PDT) + + + + + + | Component | Value | Ref Range | Performed | Pathologist | | | | | At | Signature | + + + + + + | PHOSPHATIDY | NEGATIVEComment: | NEGATIVE ng/mL | [facility] | | | [facility] | Analyzed compound: PEth | | REG UNIV | | | (PETH) | 16:0/18:1.7-zslertsgn-2- | | PTH - [facility] | | | | pwqboy-od-cfaadxv-3-phos | | | | | | phoethanol.Analysis [...] ServicesAdministration | | | | | | (2012). "The Role of | | | | [...] | | | | | d by [facility]. It has not | | | | | | been cleared or | | | | | | approvedby the Food and | | | | | | Drug | | | | | | Administration.Performed | | | | | | at: [facility] [address] | | | | | | [facility] [address]. | | | | | | [place] [address] | | | | + + + + + + + + | Specimen | + + | Blood - Blood | | (substance) | + + + + + + + | Performing | Address | City/State/Zipcode | Phone Number | | Organization | | | | + + + + + | [facility] | [address] | [place], [place] | | | UN[facility] | | [address] | | + + + + + HEMOCHROMATOSIS H63D (03/19/2019 12:15 PM PDT) + + + + + + | Component | Value | Ref Range | Performed | Pathologist | | | | | At | Signature | + + + + + + | HEMOCHROMAT | No Mutation | | [facility] | | | TY (H63D) | | | DIAGNOSTIC | | | | | | | | | | | | LABORATORIE | | | | | | S | | + + + + + + + + | Specimen | + + | Blood - Blood | | (substance) | + + + + + | Narrative | Performed At | + + + | Result: No mutation at HFE C282Y (major disease associated | [facility] | | mutation). Result: No mutation at HFE H63D (minor disease associated | DIAGNOSTIC | | mutation). INTERPRETATION: Hemochromatosis mutation analysis on this | LABORATORIES | | patient shows that neither of the HFE alleles contains an H63D | | | mutation. A previous analysis on DNA from this patient indicated | | | that neither allele carries a C282Y mutation. Most hemochromatosis | | | patients (>90%) demonstrate the presence of C282Y mutations and/or and | | | H63D mutation. Please note that the assay performed in out lab | | | detects only the C282Y and the H63D gene mutations. Thank you very | | | much for your referral. Please do not hesitate to contact us for | | | additional information as to the ramifications of this test result. | | | We look forward to assisting you again in the future. As per your | | | request, our lab has previously determined that the patient does not | | | carry the major mutation (C282Y) of the hemochromatosis gene, HFE. | | | Approximately 90% of patients who meet strict clinical criteria of | | | hereditary hemochromatosis have a homozygous C282Y mutation. A | | | portion of the remaining 10% of the hemochromatosis patients are | | | compound heterozygotes containing a C282Y HFE mutation on one | | | chromosome and a minor HFE mutation, Mud03Bev (H63D) on the other | | | chromosome. Presence of a single H63D mutation in the absence of any | | | C282Y mutation has not been shown to be a risk factor for iron | | | overload. Presence of the homozygous H63D mutation may be a weak | | | risk factor for iron overload. Presence of the H63D allele is common | | | in the normal white population, with approximately 24% of individuals | | | being heterozygous. Individuals homozygous for the H63D mutation | | | comprise approximately 2% of the normal white population. As | | | requested, DNA isolated from this patient has been analyzed for the | | | presence of the H63D mutation in the HFE gene. For this assay, a | | | specific region of the HFE gene has been amplified by PCR and analyzed | | | using a fluorescently labeled mutation-specific probe. A | | | fluorescent melting curve of hybridization kinetics of the sample and | | | necessary controls have been examined. The clinical interpretation | | | is detailed above. References: 1.) Agata et al. Nature Genetics | | | 13:399-408, 1995. 2.) Adolfo et al. Blood Cell Molecules and Disease | | | 22:187-194, 1995. 3.) Adolfo, Lancet 349:296-297, . 4.) | | | Tor et al. Blood Cell Molecules and Disease 23:269-276, 1996. | | | This test was developed and its performance characteristics determined | | | by the [facility]. It has not been cleared or | | | approved by the Food and Drug Administration. FDA approval is not | | | required for clinical use of this test, and therefore validation was | | | done as required under the requirements of the Clinical Laboratory | | | Improvement Act of 1988. The [facility] is a | | | fully licensed and/or accredited clinical laboratory under CLIA, CAP, | | | and the [facility]. Reviewed and electronically signed by Martha | | | MD Lexa 03/30/2019 3:29 PM | | + + + + + + + + | Performing | Address | City/State/Zipcode | Phone Number | | Organization | | | | + + + + + | [facility] | [address] | [place] [address] | | | DIAGNOSTIC | [address] | | | | LABORATORIES | | | | + + + + + HEMOCHROMATOSIS (C282Y), BLOOD (03/19/2019 12:15 PM PDT) + + + + + + | Component | Value | Ref Range | Performed | Pathologist | | | | | At | Signature | + + + + + + | HEMOCHROMAT | No Mutation | No Mutation | [facility] | | | OSIS(C282Y) | | | DIAGNOSTIC | | | | | | | | | | | | LABORATORIE | | | | | | S | | + + + + + + + + | Specimen | + + | Blood - Blood | | (substance) | + + + + + | Narrative | Performed At | + + + | INTERPRETATION: | [facility] | | | DIAGNOSTIC | | Hemochromatosis mutation analysis shows | LABORATORIES | | that neither of the two alleles of the HFE gene contains the C282Y | | | mutation. The C282Y mutation is present in the vast majority of | | | those with HFE-linked hereditary hemochromatosis. Please note that a | | | normal result (in one or both alleles) does not rule out an abnormal | | | phenotype. Should this patient have increased iron stores, this excess | | | iron may be the result of either non-genetic causes, liver diseases, | | | ineffective erythropoiesis, iatrogenic causes (transfusions), or other | | | genetic alterations (in HFE or other genes). | | | | | | Thank you very much for your referral. Please do not | | | hesitate to contact us for additional information as to the | | | ramifications of this test result. We look forward to assisting you | | | again in the future. As per your request, DNA has been analyzed for | | | the presence of the most common mutation in the hereditary | | | hemochromatosis gene, HFE. For this assay, a specific region of the | | | HFE gene has been amplified by PCR and analyzed using a fluorescently | | | labeled mutation-specific probe. A fluorescent melting curve of the | | | hybridization kinetics of the sample and necessary controls have been | | | examined and the clinical interpretation is detailed above. The vast | | | majority of patients with familial hemochromatosis (80-100%) have | | | recently been found to be homozygous for the C282Y mutation (as | | | compared to <0.5% of controls)(1-4). C282Y heterozygotes | | | constitute a significant fraction (10-15%) of the normal white | | | population. References: 1.) Agata et al. Nature Genetics | | | 13:399-408, 1995. 2.) Stacie et al. N. Engl J. Med. 341:718-24,1998. | | | 3.) Vance ERAZO. Gastroenterology 120:718-725, 2000. 4.) Press RD. | | | Hospital Practice 34:55-74,1998. 5.) Luis Eduardo Kwong, and Aishwarya. Am | | | J. Clin Path(2001) 115:439-47 This test was developed and its | | | performance characteristics determined by the [facility] | | | [facility]. It has not been cleared or | | | approved by the U.S. Food and Drug Administration. FDA approval is | | | not required for clinical use of this test, and therefore validation | | | was done as required under the requirements of the Clinical Laboratory | | | Improvement Act of 1988. The [facility] | | | [facility] is a fully licensed and/or accredited | | | clinical laboratory under CLIA, CAP, and the [facility]. | | | Reviewed and electronically signed by Martha Lindquist MD 03/23/2019 | | | 2:03 PM | | + + + + + + + + | Performing | Address | City/State/[facility] | Phone Number | | Organization | | | | + + + + + | [facility] | [address] | [place] [address] | | | DIAGNOSTIC | [address] | | | | LABORATORIES | | | | + + + + + FERRITIN (03/19/2019 12:15 PM PDT) + + + + + + | Component | Value | Ref Range | Performed | Pathologist | | | | | At | Signature | + + + + + + | FERRITIN | 4,329 (H)Comment: Male | 50 - 200 ng/mL | [facility] | | | | and Female >18 years: | | LABORATORY | [...] | + + + + + | [facility] | [address] | [place] [address] | | | SERVICES, ARTIS | [address] | | | + + + + + IRON AND TIBC (03/19/2019 12:15 PM PDT) + +---------+ + + + | Component | Value | Ref Range | Performed | Pathologist | | | | | At | Signature | + +---------+ + + + | IRON | 207 (H) | 50 - 170 ug/dL | [facility] | | | | | | LABORATORY | | | | | | SERVICES, | | | | | | CORE | | + +---------+ + + + | IRON BIND | 225 (L) | 240 - 450 ug/dL | [facility] | | | CAP | | | LABORATORY | | | | | | SERVICES, | | | | | | CORE | | + +---------+ + + + | % | 92 (H) | 20 - 50 % | [facility] [...] | + + + + + | [facility] | [address] | [place] [address] | | | SERVICES, CORE | [address] | | | + + + + + INR (03/19/2019 12:15 PM PDT) + + + + + + | Component | Value | Ref Range | Performed | Pathologist | | | | | At | Signature | + + + + + + | INR | 2.67 (H) | 0.90 - 1.20 INR | [facility] | | | | | | LABORATORY | | | | | | SERVICES, | | | | | | CORE | | + + + + + + + + | Specimen | + + | Blood - Blood | | (substance) | + + + + + | Narrative | Performed At | + + + | INR Therapeutic ranges for full anticoagulation: INR for Venous | [facility] | | Thromboembolism (2.0 - 3.0) INR INR for most | LABORATORY | | patients with mech. valves (2.5 - 3.5) INR | SERVICES, CORE | + + + + + + + + | Performing | Address | City/State/Zipcode | Phone Number | | Organization | | | | + + + + + | [facility] | [address] | [place] [address] | | | SERVICES, CORE | [address] | | | + + + + + BILIRUBIN DIRECT (03/19/2019 12:15 PM PDT) + +---------+ + + + | Component | Value | Ref Range | Performed | Pathologist | | | | | At | Signature | + +---------+ + + + | BILIRUBIN | 5.6 (H) | 0.0 - 0.3 mg/dL | [facility] | | | DIRECT | | | LABORATORY | | | | | | SERVICES, | | | | | | [facility] | | [facility] + | | | | | | HEALING | | + +---------+ + + + + + | Specimen | + + | Blood - Blood | | (substance) | + + + + + + + | Performing | Address | City/State/Zipcode | Phone Number | | Organization | | | | + + + + + | [facility] | [address] | [place] [address] | | | SERVICES, [facility] FOR | | | | | HEALTH + HEALING | | | | + + + + + COMPLETE METABOLIC SET (NA,K,CL,CO2,BUN,CREAT,GLUC,CA,AST,ALT,BILI TOTAL,ALK PHOS,ALB,PROT TOTAL) (03/19/2019 12:15 PM PDT) + + + + + + | Component | Value | Ref Range | Performed | Pathologist | | | | | At | Signature | + + + + + + | GLUCOSE, | 131 (H) | 70 - 99 mg/dL | [facility] | | | PLASMA | | | LABORATORY | | | (LAB) | | | SERVICES, | | | | | | [facility] | | | | | [facility] + | | | | | | HEALING | | + + + + + + | BUN, PLASMA | 62 (H) | 6 - 20 mg/dL | [facility] | | | (LAB) | | | LABORATORY | | | | | | SERVICES, | | | | | | [facility] | | | [facility] + | | | | | | HEALING | | + + + + + + | CREATININE | 1.69 (H) | 0.70 - 1.30 | [facility] | | | PLASMA | | mg/dL | LABORATORY | | | (LAB) | | | SERVICES, | | | | | | [facility] | | | | | [facility] + | | | | | | HEALING | | + + + + + + | EGFR | 51 (L) | >60 mL/min | [facility] | | | - | | | LABORATORY | | | ARMENIAN | | | SERVICES, | | | | | | [facility] | | | | | [facility] + | | | | | | HEALING | | + + + + + + | EGFR NON | 42 (L) | >60 mL/min | [facility] | | | -COREY | | | LABORATORY | | | RICAN | | | SERVICES, | | | | | | [facility] | | | [facility] + | | | | | | HEALING | | + + + + + + | SODIUM, | 127 (L) | 136 - 145 | [facility] | | | PLASMA | | mmol/L | LABORATORY | | | (LAB) | | | SERVICES, | | | | | | [facility] | | | | | [facility] + | | | | | | HEALING | | + + + + + + | POTASSIUM, | 4.9 | 3.4 - 5.0 | [facility] | | | PLASMA | | mmol/L | LABORATORY | | | (LAB) | | | SERVICES, | | | | | | [facility] | | | | | [facility] + | | | | | | HEALING | | + + + + + + | CHLORIDE, | 92 (L) | 97 - 108 mmol/L | [facility] | | | PLASMA | | | LABORATORY | | | (LAB) | | | SERVICES, | | | | | | [facility] | | | | | [facility] + | | | | | | HEALING | | + + + + + + | TOTAL CO2, | 23 | 21 - 32 mmol/L | [facility] | | | PLASMA | | | LABORATORY | | | (LAB) | | | SERVICES, | | | | | | [facility] | | | | | [facility] + | | | | | | HEALING | | + + + + + + | CALCIUM, | 10.1 | 8.6 - 10.2 | [facility] | | | PLASMA | | mg/dL | LABORATORY | | | (LAB) | | | SERVICES, | | | | | | [facility] | | | | | | [facility] + | | | | | | HEALING | | + + + + + + | CALCIUM(ALB | 10.7 (H) | 8.6 - 10.2 | [facility] | | | CORRECTED) | | mg/dL | LABORATORY | | | | | | SERVICES, | | | | | | [facility] | | | | | | [facility] + | | | | | | HEALING | | + + + + + + | BILIRUBIN | 15.0 (H) | 0.3 - 1.2 mg/dL | [facility] [...] + + + + | ALBUMIN, | 3.3 (L) | 3.5 - 4.7 g/dL | [facility] | | | PLASMA | | | LABORATORY | | | (LAB) | | | SERVICES, | | | | | | [facility] | | | | [facility] + | | | | | | HEALING | | + + + + + + | ALK PHOS | 155 (H) | 53 - 128 U/L | [facility] | | | | | | LABORATORY | | | | | | SERVICES, | | | | | | [facility] | | | | | | [facility] + | | | | | | HEALING | | + + + + + + | AST(SGOT) | 95 (H) | <=41 U/L | [facility] | | | | | | LABORATORY | | | | | | SERVICES, | | | | | | [facility] | | | | | | [facility] + | | | | | | HEALING | | + + + + + + | ALT (SGPT) | 56 | <=60 U/L | [facility] | | | | | | LABORATORY | | | | | | SERVICES, | | | | | | [facility] | | | | | | [facility] + | | | | | | HEALING | | + + + + + + | ANION GAP | 12 (H) | 4 - 11 mmol/L | [facility] | | | | | | LABORATORY | | | | | | SERVICES, | | | | | | [facility] | | | | | | [facility] + | | | | | | HEALING | | + + + + + + | ANION | 13 (H) | 4 - 11 mmol/L | [facility] [...] MDRD equation recommended by the National | [facility] | | Kidney Disease Education [...] is not valid in the following situations: - | HEALING | | Patients under 18 years of age - Severe malnutrition or obesity - | | | Vegetarian diet - Rapidly changing kidney function - Amputees, | | | paraplegics, or other muscle-wasting diseses | | + + + + + + + + | Performing | Address | City/State/Zipcode | Phone Number | | Organization | | | | + + + + + | [facility] | [address] | [place] [address] | | | [facility] | | | | | HEALTH + HEALING | | | | + + + + + NT-PRO BNP (03/19/2019 12:15 PM PDT) + +---------+ + + + | Component | Value | Ref Range | Performed | Pathologist | | | | | At | Signature | + +---------+ + + + | NT-PRO BNP | 286 (H) | <125 pg/mL | [facility] | | | | | | LABORATORY | | | | | | [facility], | | | | | | CORE | | + +---------+ + + + + + | Specimen | + + | Blood - Blood | | (substance) | + + + + + + + | Performing | Address | City/State/Zipcode | Phone Number | | Organization | | | | + + + + + | [facility] | [address] | [place] [address] | | | SERVICES, CORE | [address] | | | + + + + + documented in this encounter Visit Diagnoses + + | Diagnosis | + + | Pulmonary hypertension (HCC) Other chronic pulmonary heart diseases | + + | Pre-operative cardiovascular examination | + + | Other cirrhosis of liver (HCC) | + + documented in this encounter
--- OUTSIDE RECORDS SUMMARY | ~2020-07-29 | XMS | Encounter Summary ---
Demographics + + + | Address | [address] | | | [place] [address] | + + + | Home Phone | | + + + | Preferred Language | Unknown | + + + | Marital Status | Single | + + + | Synagogue Affiliation | NON | + + + | Race | White | + + + | Ethnic Group | Not or | + + + Author + + + | Author | [facility] | + + + | Organization | [facility] | + + + | Address | Unknown | + + + | Phone | Unavailable | + + + Support + + + + + | Name | Relationship | Address | Phone | + + + + + | Doreen Manley | ECON | [address] | | | | | [place] | | | | | [address] | | + + + + + Care Team Providers + +------+ + | Care Technical Solutions Consultant Name | Role | Phone | + +------+ + | Sharon David MD | PCP | | + +------+ + Encounter Details +--------+ + + + + | Date | Type | Department | Care Team | Description | +--------+ + + + + | 10/15/ | Documentati | Liver Transplant | Erin Hodges, | | | 2019 | on | at [facility] [address] [facility] [address] | | | | | [address] | [address] | | | | | [address] | [place], [place] | | | | | [place], [place] | [address] | | | | | [address] | | | | | | [phone] | | | +--------+ + + + [...] this encounter Miscellaneous Notes Telephone Encounter - Erin Hodges MSW - 10/16/2019 2:33 PM PSTThis encounter was op ened in error. Please disregard this note. documented in this encounter Plan of Treatment +--------+ + + + + | Date | Type | Specialty | Care Team | Description | +--------+ + + + + | 08/08/ | Telephone-S | Nephrology | Angélica Chao, | | | 2019 | [place] | | [address] | | | | | | [address] | | | | | | [place], [place] | | | | | | [address] | | | | | | [phone] | | | | | | | | +--------+ + + + + | 09/27/ | Telephone-S | Liver Transplant | Vimal Crowe MD | | | 2019 | ched[facility] | | [address] | | | | | | [address], | | | | | | [place] [address] | | | | | | [phone] | | | | | | | | +--------+ + + + + | 10/03/ | Appointment | Cardiology | | | | 2019 | | | | | +--------+ + + + + | 10/03/ | Office | Cardiology | Cyril Samuel | | 2019 | Visit | | MD Patricia [address] | | | | | | [address] | | | | | | [place] | | | | | | [address] | | | | | | [phone] | | | | | | | | +--------+ + + + + documented as of this encounter Visit Diagnoses Not on filedocumented in this encounter"
--- OUTSIDE RECORDS SUMMARY | ~2020-07-29 | XMS | Encounter Summary ---
Demographics + + + | Address | [address] | | | [place] [address] | + + + | Home Phone [...] + + + | Author | [facility] | + + + | Organization | [facility] | + + + | [...] [place] | | | | | [address] | | + + + + + Care Team Providers + +------+ + | Care Loader Operator Supervisor Name | Role | Phone | + +------+ + | Sharon David MD | PCP | | + +------+ + Encounter Details +--------+ + + + + | Date | Type | Department | Care Team | Description | +--------+ + + + + | 12/16/ | Pharmacy | [facility] | | | | 2020 | Visit | [address] | | | | | | [address] | | | | | | [place] [address] | | | | | | [phone] | | | +--------+ + + + [...] [address] | | | | | | [place], [place] | | | | | | [address] | | | | | | [phone] | | | | | | | | +--------+ + + + + | 09/27/ | Telephone-S | Liver Transplant | Vimal Crowe MD | | | 2019 | ched[facility] | | [address] | | | | | | [address], | | | | | | [place] [address] | | | | | | [phone] | | | | | | | [...] [address] | | | | | | [place] | | | | | | [address] | | | | | | [phone] | | | | | | | | +--------+ + + + + documented as of this encounter Visit Diagnoses Not on filedocumented in this encounter"
--- OUTSIDE RECORDS SUMMARY | ~2020-07-29 | XMS | Encounter Summary ---
Demographics + + + | Address | [address] | | | [place] [address] | + + + | Home Phone [...] [place] | | | | | [address] | | + + + + + Care Team Providers + +------+ + | Care Global Climate Change Researcher Name | Role | Phone | + +------+ + | Sharon David MD | PCP | | + +------+ + Encounter Details +--------+ + + + + | Date | Type | Department | Care Team | Description | +--------+ + + + + | 11/10/ | Forklift Driver | Clinical | Vimal Crowe MD | Liver replaced by | | 2019 | | Transplant Services | [address] | transplant (HCC) | | | | [address] | [address] [place], | (Primary Dx) | | | | [facility], | [place] [address] | | | | | [place] [address] | [phone] | | | | | [phone] | | | +--------+ + + + [...] Rd | | | | | | [place], [place] | | | | | | [address] | | | | | | [phone] | | | | | | | | +--------+ + + + + | 09/27/ | Telephone-S | Liver Transplant | Vimal Crowe MD | | | 2019 | cheduled | | [address] | | | | | | [address], | | | | | | [place] [address] | | | | | | [phone] | | | | | | | [...] Rd | | | | | | [place], [place] | | | | | | [address] | | | | | | [phone] | | | | | | | | +--------+ + + + + documented as of this encounter Visit Diagnoses + + | Diagnosis | + + | 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
--- OUTSIDE RECORDS SUMMARY | ~2020-07-29 | XMS | Encounter Summary ---
Demographics + + + | Address | [address] | | | [place] [address] | + + + | Home Phone | | + + + | Preferred Language | Unknown | + + + | Marital Status | Single | + + + | Baptist Affiliation | NON | + + + [...] [place] | | | | | [address] | | + + + + + Care Team Providers + +------+ + | Care Movie Projectionist Name | Role | Phone | + +------+ + | Sharon David MD | PCP | | + +------+ + Reason for Visit + +--------+ + | Reason | Onset | Comments | | | Date | | + +--------+ + | Prior Authorization | 06/09/ | Divina Taylor) | | Request | 2020 | | + +--------+ + Encounter Details +--------+ + + + + | Date | Type | Department | Care Team | Description | +--------+ + + + + | 06/09/ | Telephone | Nephrology & | Angélica Chao, | Prior Authorization | | 2019 | | [facility] | [address] | Request (Patriomer | | | | [address] | [address] | (Veltassa)) | | | | Loop Physician's | [place], [place] | | | | | [place], [address] [place] [address] | [address] | | | | | [place], [place] | [phone] | | | | | [address] | | | | | | [phone] | | | +--------+ + + + [...] this encounter Miscellaneous Notes Telephone Encounter - Filippo Mccurdy MA - 06/28/2020 9:53 AM PDTCalled patient and they co nfirmed that they received their Veltassa on Sunday 06/24. Filippo Mccurdy MA elephone Encounter - B Kena martin MA - 06/22/2020 4:41 PM PDTIncoming fax from insurance regarding prior authori zation. [facility] insurance has approved patient's Veltassa 8.4GM [place] PACK, expiration date 06.22.2021. Approval letter has been uploaded to patient's chart under "[facility] Veltassa Approval" Kena Domínguez MA elephone Encounter - Kena Mccarty MA - 06/22/2020 2:29 PM PDTFaxed completed and signed form to: [facility] Attn: Pharmacy Services [phone] Copy uploaded to chart under [facility] KSMonster Velcecissa PA Form Signed. Kena Domínguez MA elephone Encounter - Kena Mccarty MA - 06/22/2020 11:07 AM PDTReceived fax from [email or web address] [place] regarding prior authorization for Veltassa 8.4GM Packets. Thompson: [id number] [employer] [place] [address] [address] [facility] [address] # [phone] Received form for provider to complete. Once completed, please notify a Nephrology MA to f ax the completed for to: [facility] Attn: Pharmacy Services [phone] Form placed in provider box drive, under patient name PA Form and copy uploaded to [facility] Veltassa PA Form. Kena Domínguez MA elephone Encounter - Justin valdezjaunFilippo MA - 06/22/2020 9:54 AM PDTChart notes faxed to [facility] at [phone]. Filippo Mccurdy MA elephone Encounter - Kena Henderson MA - 06/21/2020 3:14 PM PDTReceived incoming fax from: [facility] "Please send chart notes for review as soon as possible." [facility] [address] [place] [address] PH# [phone] "Time sensitive. Please respond by 06/24/2020." "Please note that failure to provide the requested information prior to the date indicated above may result in denial of payment due to lack of supporting documentation." Copy of letter uploaded to chart. Kena Domínguez MA elephone Encounter - Kena Mccarty MA - 06/21/2020 8:43 AM PDTReceived fax from [facility] regarding p rior authorization for Veltassa Packets 8.4GM. Mahesh: "This is not a A member" Called [facility] ADULT BASIC EDUCATION MANAGER [phone]. PA needs to process through the health plan directly which is [facility] ADULT BASIC EDUCATION MANAGER ([facility]): [phone] Called [phone], started PA via phone. Requesting for us to fax over chart notes to: Pharmacy Operations [phone] Thompson: [email or web address] After chart notes are received and reviewed will fax back questions for Dr. Chao if needed . Provider: Please advise on which chart notes to fax and a Nephrology MA will fax them to: . Kena Domínguez MA elephone Encounter - Kena Mccarty MA - 06/17/2020 10:19 AM PDTReceived incoming fax from [facility] regard ing prior authorization for VELTASSA 8.4 GM POWDER PACKET. "The request was not processed fo r the following reasons: Patient is enrolled in a Managed Care Plan." Managed Care Plan: [facility] PH#[phone] Changed Payer via CEDU to: [facility] - Managed Medicaid Will await payer response for the required gr. Kena Domínguez MA elephone Encounter - Filippo Romero MA - 06/13/2020 9:27 AM PDTReceived fax from [employer]. They are not the ones who handle's Pas for this patient. Called pharmacy and asked them to re-send the rejection w ith the PA information so we can update and resend the PA out. elephone Encounter - Filippo Mccurdy MA - 06/09/2020 4:13 PM PDTPA is required for this medication. Received fax from [facility] regarding prior authorization for Patiromer 8.4 g ewelina oral powder. Insurance: [employer] ID: [id number] Group: [id number] BIN: [id number] PCN: [id number] Requested ePA on [facility] to initiate the process. Will await payer response for the required f ields. elephone Encounter - Filippo Anderson MA - 06/09/2020 4:13 PM PDT----- Message from Angélica Chao MD sent at 05/22 11:35 AM PDT ----- Regarding: pls start prior auth Hi all - can you please reach out to pt's insurance to initiate prior auth for patiromer (v eltassa)? Thanks, JWeiss documented in this enco unter Plan of [...] Rd | | | | | | [place], [place] | | | | | | [address] | | | | | | [phone] | | | | | | | | +--------+ + + + + | 09/27/ | Telephone-S | Liver Transplant | Vimal Crowe MD | | | 2019 | [place] | | [address] | | | | | | [facility] [place], | | | | | | [place] [address] | | | | | | [phone] | | | | | | | [...] [place] | | | | | | [address] | | | | | | [phone] | | | | | | | | +--------+ + + + + documented as of this encounter Visit Diagnoses Not on filedocumented in this encounter
--- OUTSIDE RECORDS SUMMARY | ~2020-07-29 | XMS | Encounter Summary ---
Demographics + + + | Address | [address] | | | [place] [address] | + + + | Home Phone [...] [place] | | | | | [address] | | + + + + + Care Team Providers + +------+ + | Care Fire Fighter [employer] Name | Role | Phone | + +------+ + | Sharon David MD | PCP | | + +------+ + Encounter Details +--------+ + + + + | Date | Type | Department | Care Team | Description | +--------+ + + + + | 06/24/ | Abstract | Clinical | Vimal Crowe MD | | | 2019 | | Transplant Services | [address] | | | | | [address] | [address] [place], | | | | | [place], | [place] [address] | | | | | [place] [address] | [phone] | | | | | [phone] | | | +--------+ + + + [...] Rd | | | | | | [place], [place] | | | | | | [address] | | | | | | [phone] | | | | | | | | +--------+ + + + + | 09/27/ | Telephone-S | Liver Transplant | Vimal Crowe MD | | | 2019 | [place] | | [address] | | | | | | [address] [place], | | | | | | [place] [address] | | | | | | [phone] | | | | | | | | +--------+ + + + + | 10/03/ | Appointment | Cardiology | | | | 2019 | | | | | +--------+ + + + + | 10/03/ | Office | Cardiology | Cyril Samuel | | | 2019 | Visit | Darren Gomez MD [address] | | | | | | [address] | | | | | | [place], [place] | | | | | | [address] | | | | | | [phone] | | | | | | | [...] Results LIVER TRANSPLANT POST PANEL (EXT RESULTS) (06/23/2020 10:37 AM PDT) + + + + + [...] + + | CHLORIDE, | 98 | mmol/L | [facility] | | | [...] + + + + | GLUCOSE, | 184 | | [facility] | | | PLASMA | | | LAB - | | | (LAB) | | | [place] | | + + + + + + | BUN, PLASMA | 56 | mg/dL | [facility] | | | (LAB) | | | LAB - | | | | | | [place] | | + + + + + + | CREATININE | 3.04 | mg/dL | [facility] | | | [...] + + + + | PHOSPHORUS, | 4.6 | mg/dL | [facility] | | | PLASMA | | | LAB - | | | (LAB) | | | [place] | | + + + + + + | MAGNESIUM,P | 2.9 | mg/dL | [facility] | | | LASMA | | | LAB - | | | | | | [place] | | + + + + + + | TOTAL | 6.8 | g/dL | [facility] | | | PROTEIN, | | | LAB - | | | PLASMA | | | [place] | | | (LAB) | | | | | + + + + + + | ALBUMIN, | 4.3 | g/dL | [facility] | | | [...] + + + | ALK PHOS | 88 | U/L | [facility] | | | | | | LAB - | | | | | | [place] | | + + + + + + | AST(SGOT) | 16 | U/L | [facility] | | | | | | LAB - | | | | | | [place] | | + + + + + + | ALT (SGPT) | 21 | U/L | [facility] | | | | | | LAB - | | | | | | [place] | | + + + + + + | URIC ACID, | 9.0 | mg/dL | [facility] | | | PLASMA | | | LAB - | | | (LAB) | | | [place] | | + + + + + + | WHITE CELL | 5.9 | K/cu mm | [facility] | | | COUNT | | | LAB - | | | | | | [place] | | + + + + + + | HEMOGLOBIN | 10.8 (A) | 13.5 - 17.5 | [facility] | | | | | g/dL | LAB - | | | | | | [place] | | + + + + + + | HEMATOCRIT | 30.8 | % | [facility] | | | | | | LAB - | | | | | | [place] | | + + + + + + | PLATELET | 129 | K/cu mm | [facility] | | [address] | [place] | [phone] | | [place] | | | | + + + + + documented in this encounter Visit Diagnoses Not on filedocumented in this encounter"
--- OUTSIDE RECORDS SUMMARY | ~2020-07-29 | XMS | Encounter Summary ---
Demographics + + + | Address | [address] | | | [place] [address] | + + + | Home Phone [...] [place] | | | | | [address] | | + + + + + Care Team Providers + +------+ + | Care Chip Silo Tender Name | Role | Phone | + +------+ + | Ignacio Caldwell MD | PCP | | + +------+ + Encounter Details +--------+ + + + + | Date | Type | Department | Care Team | Description | +--------+ + + + + | 03/21/ | Procedure - | | Documentation, | OP REPORT-TEACHING | | 1998 | | | Teaching Physician | | | | Transcribed | | | | +--------+ + + [...] + + documented as of this encounter Procedure Notes Interface, Cnc Mill Set Up Operator In - 10/09/2006 3:09 AM PST [place] [address] [address] [facility] OPERATION RECORD ADDENDUM Med Rec No.: [id number] Date: 03/21/1999 Name: Steffen Duran ATTENDING PHYSICIAN:Rod Velasquez M.D. PROCESS ENGINEERING INTERN(S): Jatinder Quinones M.D. PREOPERATIVE DIAGNOSIS: Open grade 2 fracture, proximal tibia with intraarticular extension right knee. PROCEDURE: Debridement left tibial wound. Pursuant to federal Medicare billing regulations, I hereby certify that I was present, at a minimum, during all the tamez portions of the above procedure from prep through dressing. Dr. Quinones will dictate the bulk of this note. Mr. Duran will need to be returned to the Operating Room for more definitive surgery as this wound heals. Rod Velasquez M.D. CBB:[id number] #[id number] [facility] [address] [place] [address] [place] [id number] signed by Interface, Cnc Mill Set Up Operator In at 10/09/2006 3:09 AM PSTdocumented [...] [address] | | | | | | [place], [place] | | | | | | [address] | | | | | | [phone] | | | | | | | | +--------+ + + + + | 09/27/ | Telephone-S | Liver Transplant | Vimal Crowe MD | | | 2019 | cheduled | | [address] | | | | | | [address], | | | | | | [place] [address] | | | | | | [phone] | | | | | | | | +--------+ + + + + | 10/03/ | Appointment | Cardiology | | | | 2019 | | | | | +--------+ + + + + | 10/03/ | Office | Cardiology | Cyril Samuel | | | 2019 | Visit | | MD Patricia [address] [facility] | | | | | | [address] | | | | | | [place], [place] | | | | | | [address] | | | | | | [phone] | | | | | | | | +--------+ + + + + documented as of this encounter Procedures + +--------+ + + + | Procedure Name | Priori | Date/Time | Associated Diagnosis | Comments | | | ty | | | | + +--------+ + + + | TEACHING PHYSICIAN | | 03/21/1999 | | | + +--------+ + + + documented in this encounter Visit Diagnoses Not on filedocumented in this encounter"
--- OUTSIDE RECORDS SUMMARY | ~2020-07-29 | XMS | Encounter Summary ---
Demographics + + + | Address | [address] | | | [place] [address] | + + + | Home Phone [...] [place] | | | | | [address] | | + + + + + Care Team Providers + +------+ + | Care Parish Worker Name | Role | Phone | + +------+ + | Sharon David MD | PCP | | + +------+ + Encounter Details +--------+ + + + + | Date | Type | Department | Care Team | Description | +--------+ + + + + | 03/29/ | Abstract | Clinical | Vimal Crowe MD | | | 2020 | | Transplant Services | [address] | | | | | [address] | [address] [place], | | | | | [place], | [place] [address] | | | | | [place] [address] | [phone] | | | | | [phone] | | | +--------+ + + + [...] Rd | | | | | | [place], [place] | | | | | | [address] | | | | | | [phone] | | | | | | | | +--------+ + + + + | 09/27/ | Telephone-S | Liver Transplant | Vimal Crowe MD | | | 2019 | [place] | | [address] | | | | | | [facility] [address] [place], | | | | | | [place] [address] | | | | | | [phone] | | | | | | | | +--------+ + + + + | 10/03/ | Appointment | Cardiology | | | | 2019 | | | | | +--------+ + + + + | 10/03/ | Office | Cardiology | Cyril Samuel | | | 2019 | Visit | Darren Gomez MD [address] | | | | | | [address] | | | | | | [place], [place] | | | | | | [address] | | | | | | [phone] | | | | | | | | +--------+ + + + + documented as of this encounter Procedures + +--------+ + + + | Procedure Name | Priori | Date/Time | Associated Diagnosis | Comments | | | ty | | | | + +--------+ + + + | LIVER TRANSPLANT | Routin | 03/28/2020 | | Results for this | | POST PANEL (EXT | e | 8:02 AM | | procedure are in the | | RESULTS) | | PDT | | results section. | + +--------+ + + + documented in this encounter Results LIVER TRANSPLANT POST PANEL (EXT RESULTS) (03/28/2020 8:02 AM PDT) + + + + + + | Component | Value | Ref Range | Performed | Pathologist | | | | | At | Signature | + + + + + + | SODIUM, | 141 | mmol/L | [facility] | | | [...] + | TOTAL CO2, | 29 | mmol/L | [facility] | | | PLASMA | | | LAB - | | | (LAB) | | | [place] | | + + + + + + | GLUCOSE, | 296 (A) | 65 - 110 mg/dL | [...] + + + + | CREATININE | 2.21 | mg/dL | [facility] | | | [...] + + + + | MAGNESIUM,P | 2.0 | mg/dL | [facility] | | | [...] + + + | ALK PHOS | 81 | U/L | [facility] | | | | | | LAB - | | | | | | [place] | | + + + + + + | AST(SGOT) | 16 | U/L | [facility] | | | | | | LAB - | | | | | | [place] | | + + + + + + | ALT (SGPT) | 16 | U/L | [facility] | | | | | | LAB - | | | | | | [place] | | + + + + + + | URIC ACID, | 7.1 | mg/dL | [facility] | | | PLASMA | | | LAB - | | | (LAB) | | | [place] | | + + + + + + | WHITE CELL | 5.3 | K/cu mm | [facility] | | | COUNT | | | LAB - | | | | | | [place] | | + + + + + + | HEMATOCRIT | 35.6 | % | [facility] | | | | | | LAB - | | | | | | [place] | | + + + + + + | HEMOGLOBIN | 12.0 (A) | 13.5 - 17.5 | [facility] [address] | [place] | [phone] | | [place] | | | | + + + + + documented in this encounter Visit Diagnoses Not on filedocumented in this encounter"
--- OUTSIDE RECORDS SUMMARY | ~2020-07-29 | XMS | Encounter Summary ---
Demographics + + + | Address | [address] | | | [place] [address] | + + + | Home Phone [...] [place] | | | | | [address] | | + + + + + Care Team Providers + +------+ + | Care Principal Software Engineer Name | Role | Phone | + +------+ + | Sharon David MD | PCP | | + +------+ + Encounter Details +--------+ + + + + | Date | Type | Department | Care Team | Description | +--------+ + + + + | 06/24/ | MyChart | [facility]rology at [facility] | Dipesh Diego MD | Steffen Duran | | 2019 | Encounter | [address] | [address] | Transplant-2 | | | | [facility] | [place], [place] | | | | | and Healing, | [address] | | | | | | [phone] | | | | | Floor [place], [place] | | | | | | [address] | | | | | | [phone] | | | +--------+ + + + [...] Rd | | | | | | [place], [place] | | | | | | [address] | | | | | | [phone] | | | | | | | | +--------+ + + + + | 09/27/ | Telephone-S | Liver Transplant | Vimal Crowe MD | | | 2019 | [place] | | [address] | | | | | | [address], | | | | | | [place] [address] | | | | | | [phone] | | | | | | | | +--------+ + + + + | 10/03/ | Appointment | Cardiology | | | | 2019 | | | | | +--------+ + + + + | 10/03/ | Office | Cardiology | Cyril Samuel | | | 2019 | Visit | Darren Gomez MD [address] | | | | | | [address] | | | | | | [place], [place] | | | | | | [address] | | | | | | [phone] | | | | | | | | +--------+ + + + + documented as of this encounter Visit Diagnoses Not on filedocumented in this encounter"
--- OUTSIDE RECORDS SUMMARY | ~2020-07-29 | XMS | Encounter Summary ---
Demographics + + + | Address | [address] | | | [place] [address] | + + + | Home Phone [...] Author + + + | Author | [facility] | + + + | Organization | [facility] | + + + | [...] [place] | | | | | [address] | | + + + + + Care Team Providers + +------+ + | Care Shock Absorption Floor Layer Name | Role | Phone | + +------+ + | Sharon David MD | PCP | | + +------+ + Encounter Details +--------+ + + + + | Date | Type | Department | Care Team | Description | +--------+ + + + + | 07/07/ | Pharmacy | [facility] | | | | 2020 | Visit | [address] | | | | | [address] | | | | | | [place] [address] | | | | | | [phone] | | | +--------+ + + + [...] Rd | | | | | | [place], [place] | | | | | | [address] | | | | | | [phone] | | | | | | | | +--------+ + + + + | 09/27/ | Telephone-S | Liver Transplant | Vimal Crowe MD | | | 2019 | cheduled | | [address] | | | | | | [address], | | | | | | [place] [address] | | | | | | [phone] | | | | | | | [...] Rd | | | | | | [place] | | | | | | [address] | | | | | | [phone] | | | | | | | | +--------+ + + + + documented as of this encounter Visit Diagnoses Not on filedocumented in this encounter"
--- OUTSIDE RECORDS SUMMARY | ~2020-07-29 | XMS | Encounter Summary ---
Demographics + + + | Address | [address] | | | [place] [address] | + + + | Home Phone [...] [place] | | | | | [address] | | + + + + + Care Team Providers + +------+ + | Care Submarine Operator Name | Role | Phone | + +------+ + | Sharon David MD | PCP | | + +------+ + Reason for Visit + +--------+ + | Reason | Onset | Comments | | | Date | | + +--------+ + | Lab Order | 12/14/ | | | | 2020 | | + +--------+ + Encounter Details +--------+ + + + + | Date | Type | Department | Care Team | Description | +--------+ + + + + | 12/14/ | Telephone | [facility] | Tyson Bellamy, | Lab Order | | 2020 | | Clinics at S | MD [address] | | | | | [address] [place], | | | | | [facility] | [place] [address] | | | | | Health and Healing, | [phone] | | | | | [address] | | | | | | [place], [place] | | | | | | [address] | | | | | | [phone] | | | +--------+ + + + [...] this encounter Miscellaneous Notes Telephone Encounter - Radha Ricardo - 12/14/2019 3:40 PM PSTTeam Coordinator Documentation : Subject: Note Ferritin order has been faxed to [facility]. -----Original Message----- From: [employer] [place] - Do Not Reply [email or web address]> Sent: Saturday, December 14, 2019 3:40 PM To: Radha Ricardo <[email or web address]> Subject: Your fax has been successfully sent to [facility] at [phone] elephone Encounter - Anshul Tam RN - 12/14/2019 2:42 PM PST--> Spoke with Dr. Bellamy: Reviewed and confirms onl y needs every 12 week ferritin. Local lab must follow up with Dr. Garcia for additional lab confirmation. --> Call to Emily ([facility]). Discussed followin) Hematology labs - Notified only ferritin needed. Assured will send updated ferritin orde r via FAX. 2) Transplant labs - Directed to contact Marsha Garcia MD ([phone]) for any liver cox splant related lab order needs. Will do so presently. --> RED TC: Please FAX external ferritin order to [facility] ([place]). elephone Encounter - Garrison Serra - 12/14/2019 2:21 PM PSTLaura - [facility] calls, states patient is ther e now to get labs done. States that the patient is saying that they never draw all of the c orrect labs. Asks which other labs the patient should be getting. Emily asks for a call back CLAYTON at Ph. [phone] Routing to RNC documented i n this encounter Plan of Treatment +--------+ + + + + | Date | Type | Specialty | Care Team | Description | +--------+ + + + + | 08/08/ | Telephone-S | Nephrology | Angélica Chao, | | | 2019 | [place] | | [address] | | | | | | [address] | | | | | | [place], [place] | | | | | | [address] | | | | | | [phone] | | | | | | | | +--------+ + + + + | 09/27/ | Telephone-S | Liver Transplant | Vimal Crowe MD | | | 2019 | [place] | | [address] | | | | | | [address], | | | | | | [place] [address] | | | | | | [phone] | | | | | | | [...] Rd | | | | | | [place], [place] | | | | | | [address] | | | | | | [phone] | | | | | | | | +--------+ + + + + + +------+--------+ + + | Name | Type | Priori | Associated Diagnoses | Order Schedule | | | | ty | | | + +------+--------+ + + | FERRITIN | Lab | Routin | Iron overload | Every 12 weeks for 4 | | | | e | | Occurrences | | | | | | starting 12/14/2019 | | | | | | until 01/11/2021 | + +------+--------+ + + documented as of this encounter Visit Diagnoses + + | Diagnosis | + + | Iron overload - Primary Other disorders of iron metabolism | + + documented in this encounter"
--- OUTSIDE RECORDS SUMMARY | ~2020-07-29 | XMS | Encounter Summary ---
Demographics + + + | Address | [address] | | | [place] [address] | + + + | Home Phone [...] + + + | Author | [facility] | + + + | Organization | [facility] | + + + [...] [place] | | | | | [address] | | + + + + + Care Team Providers + +------+ + | Care Station Operator Name | Role | Phone | + +------+ + | Sharon David MD | PCP | | + +------+ + Encounter Details +--------+ + + + + | Date | Type | Department | Care Team | Description | +--------+ + + + + | 05/12/ | [facility] | Clinical | Haley Fernández, | Alcoholic cirrhosis | | 2019 | | Transplant Services | JAYDE [address] | of liver with | | | | [address] | [address] | ascites (HCC) | | | | [place], | [place], [place] | (Primary Dx) | | | | [place] [address] | [address] | | | | | [phone] | | | +--------+ + + + [...] | | 2019 | [place] | | [address] | | | | | | [address] | | | | | | [place], [place] | | | | | | [address] | | | | | | [phone] | | | | | | | | +--------+ + + + + | 09/27/ | Telephone-S | Liver Transplant | Vimal Crowe MD | | | 2019 | [place] | | [address] | | | | | | [address], | | | | | | [place] [address] | | | | | | [phone] | | | | | | | | +--------+ + + + + | 10/03/ | Appointment | Cardiology | | | | 2019 | | | | | +--------+ + + + + | 10/03/ | Office | Cardiology | Cyril Samuel | | | 2019 | Visit | | MD Patricia [address] [facility] | | | | | | [address] | | | | | | [place], [place] | | | | | | [address] | | | | | | [phone] | | | | | | | | +--------+ + + + + documented as of this encounter Results NICOTINE + METABOLITE SCREEN, URINE (05/19/2019 3:25 PM PDT) + + + + + + | Component | Value | Ref Range | Performed | Pathologist | | | | | At | Signature | + + + + + + | NICOTINE, | <2Comment: Consistent | ng/mL | [facility] | | | URINE | with abstinence from | | REG UNIV | | | | nicotine-containingprodu | | PTH - [facility] | | | | cts for at least 2 | | | | | | weeks.INTERPRETIVE | | | | | | INFORMATION: Nicotine | | | | | | and Metabolites, | | | | | | | | | | | | Urine, | | | | | | Quantitative | | | | | | Methodology: | | | | | | Quantitative Liquid | | | | | | Chromatography-Tandem | | | | | | Mass Spectrometry | | | | | | Positive cutoff:Nicotine | | | | | | 2 ng/mLCotinine 5 | | | | | | ng/oZ6-VA-Pkcxndxp 50 | | | | | | ng/mLNornicotine | | | | | | 2 ng/mLAnabasine | | | | | | 3 ng/mL For | | | | | | medical purposes only; | | | | | | not valid for forensic | | | | | | use. This test is | | | | | | designed to evaluate | | | | | | recent use of | | | | | | nicotine-containing | | | | | | products. Passive and | | | | | | active exposure cannot | | | | | | be discriminated | | | | | | definitively, although a | | | | | | cutoff of 100 ng/mL | | | | | | cotinine is frequently | | | | | | used for surgery | | | | | | qualification purposes. | | | | | | For smoking cessation | | | | | | programs or compliance | | | | | | testing, the absence of | | | | | | expected drug(s) and/or | | | | | | drug metabolite(s) may | | | | | | indicate non-compliance, | | | | | | inappropriate timing of | | | | | | specimen collection | | | | | | relative to drug | | | | | | administration, poor | | | | | | drug absorption, | | | | | | diluted/adulterated | | | | | | urine, or limitations of | | | | | | testing. The | | | | | | concentration value must | | | | | | be greater than or | | | | | | equal to the cutoff to | | | | | | be reported as positive. | | | | | | Anabasine is included | | | | | | as a biomarker of | | | | | | tobacco use, versus | | | | | | nicotine replacement. | | | | | | Interpretive questions | | | | | | should be directed to | | | | | | the laboratory. Test | | | | | | developed and | | | | | | characteristics | | | | | | determined by [facility] | | | | | | Laboratories. See | | | | | | Compliance Statement B: | | | | | | [email or web address] | | | | | | [facility],[address] | | | [address], [place] | | | | | | [address] | | | | | | [phone].[email or web address]. | | | | | | Harley gomez MD, | | | | | | Lab. Director | | | | + + + + + + | COTININE, | <5 | ng/mL | [facility] | | | URINE | | | REG UNIV | | | | | | PTH - [facility] | | + + + + + + | NORNICOTINE | <2 | ng/mL | [facility] | | | , URINE | | | REG UNIV | | | | | | PTH - [facility] | | + + + + + + | ANABASINE, | <3 | ng/mL | [facility] | | | URINE | | | REG UNIV | | | | | | PTH - INT[facility] | | + + + + + + | 3-OH-COTINI | <50 | ng/mL | [facility] | | | NE, URINE | | | REG UNIV | | | | | | PTH - [facility] | | + + + + + + + + | Specimen | + + | Urine - Urine | | (substance) | + + + + + + + | Performing | Address | City/State/Zipcode | Phone Number | | Organization | | | | + + + + + | [facility] | [address] | [place], [place] | | | UNIV PTH - [facility] | | [address] | | + + + + + documented in this encounter Visit Diagnoses + + | Diagnosis | + + | Alcoholic cirrhosis of liver with ascites (HCC) - Primary Alcoholic cirrhosis of | | liver | + + documented in this encounter"
--- OUTSIDE RECORDS SUMMARY | ~2020-07-29 | XMS | Encounter Summary ---
Demographics + + + | Address | [address] | | | [place] [address] | + + + | Home Phone [...] [place] | | | | | [address] | | + + + + + Care Team Providers + +------+ + | Care Outboard System Operator Name | Role | Phone | + +------+ + | Sharon David MD | PCP | | + +------+ + Reason for Visit + + + | Reason | Comments | + + + | Committee Review | | | Decision | | + + + Encounter Details +--------+ + + + + | Date | Type | Department | Care Team | Description | +--------+ + + + + | 07/07/ | Committee | Clinical | Haley Fernández, | Committee Review | | 2019 | Review | Transplant Services | RN [address] | Decision | | | | [address] | [address] | | | | | [place], | [place], [place] | | | | | [place] [address] | [address] | | | | | [phone] | | | +--------+ + + + [...] documented as of this encounter Miscellaneous Notes Committee Review - Haley Fernández, JAYDE - 07/07/2019 1:37 PM PDTLiver Transplant Committe e Review Decision and Recommendations Pre PENITENTIARY: Send letter Committee Date: 07/09/19 Patient Name: Steffen Duran : 1965 Age: 54 y.o. Discussion Type: Re-present - All recommendations complete Chairing MD: Dr. Pinon Disciplines Present: Medicine Attending, Surgery Attending, Paramedic Rn, Acid Leveler, Dietitian and Transplant Leadership Transplant Nurse: Haley Fernández Referring Physician for Transplant: Vimal Crowe [facility]: (Not currently on dialysis) Based on the Selection Criteria, the following decision has been made for the patient's tra nsplant candidacy: Decision: APPROVED and seek insurance authorization for listing. Sister, Doreen, notified o f the decision and all questions answered. She states she will relay the decision to Donell kevin call back if he has any additional questions. Letters will be sent. Initially DEFERRED on 04/30/19 - Providers Intent: HCV +: Yes Special Donor Type: None Does patient s medical condition and labwork at this time allow dental extractions if rec ommended by dentist: No, based on labs from 04/23/19: PLT 50, INR 2.94. Recommendations to be completed prior to listin. Follow up with cardiology to re-evaluate since cardiac MRI done on 04/24/19. New referr al sent. To see (heart failure clinic) 07/06/19 then represent at Committee. DONE, Committ ee on 07/09/19 05/18/19, [facility], Dr. 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 He has now developed significant transfusions associated iron over load with detectable liver and myocardial iron overload. Difficult situation as his liver di sease precludes the more common chelator Deferasirox. He also lives quite far from [facility] in [place], making the needed routine followup difficult. We discussed a trial of deferipron e with local monitoring (elis). He will need to see a local asphalt distributor tender in the [place] for symptoms monitoring. He was agreeable to that plan. I will see him back in 6mo f or revaluation. If he should proceed to transplant we can stop the chelation [facility] The medication was ordered and from what I can see the cost for a one month supply would quintana ve been nearly $30,000! I will send a message to the pharmacy to see why none of this was co mmunicated and if there are other options. 07/06/19 Dr. Samuel, [facility] - note to be reviewed at Liver Transplant Committee Review on 2. Urology Consult due to red blood cells, 6/hpf in urine on 04/22/19. Ordered - DONE 05/20/19, Dr. Diego, Urology Consult, [facility]: UA today: Moderate blood (a previous one showed >20 RBCs/HPF). PSA <0.06 on 04/21/2019. 05/19/2019: CT images reviewed with the three of them: 4 mm left mid pole renal stone that does not appear top be loose in the collecting system. Cystoscopy : see Procedure note. No urethral or bladder tumors or stones, bladder wash for cytology done, results pending. A: Microscopic hematuria due to left renal asymptomatic 3. Complete tobacco cessation and submit urine nicotine/cotinine screens weekly for 4 cons ecutive weeks, then random. All must be negative. DONE 05/19/19 [facility]: Urine sharmila <2 Urine cotinine <5 Received negative urine nicotine and cotinine screens from [facility] dated 05/26/19, and 06/09/19. Sent all to accounting support specialist to post and scan on 06/16/19 06/16/19 [facility]: Urine sharmila <2 Urine cotinine <5 06/23/19 Sent to accounting support specialist to post and scan 4. Continue to engage in relapse prevention. DONE 06/05/19 Chacho Medina planning to f/u with counselor and sister. 06/08/19 Social Work note - PATIENT ACCESS DIRECTOR spoke with pt's substance use counselor, Karolyn Xie from [facility] today ([phone]). Karolyn confirmed that pt continues to engage in weekly counseling with her focusing on relapse prevention and building coping skills. He also provides UA's, which have all been negative. Their next appointment is set for tomorrow 06/09/2019. Recommendation status from a psychosocial perspective: Complete 5. CT abdomen now. Ordered - DONE 05/19/19 Done at [facility] 05/21/19 Dr. Garcia reviewed - no surgical issues. Sent to Dr. Crowe for review as well. On checklist for US in 6 months. WL: Post transplant phlebotomy Recommendations to be completed but not required prior to listin. Ongoing screening for hepatocellular carcinoma: Abdominal ultrasound alternating with C T scan and AFP blood draw every 6 months. Scans should be done at [facility], combined with your p hysician appointments. US & AFP due 10/23/19. CT & AFP due 04/22/20. 05/19/19 CT done at [facility] - Dr. Garcia reviewed 05/21/19, sent to Dr. Crowe for review as we ll 05/21/19. US due 11/19/19 (on checklist) 2. Ongoing periodic random urine drug, nicotine, and ethyl glucuronide screenings, with bl ood alcohol screenings. 3. Ongoing labwork for medical management at least every 3 months: metabolic comprehensive , CBC with diff, PT INR. 4. Follow up with hematology/oncology for possible IV chelation. Inbox message sent to Dr. Bellamy-saw as an inpatient. Message ----- From: Anshul Taylor RN Sent: 05/04/2019 11:20 AM To: Vimal Crowe MD, Porsche Perdomo RN, * Referred today to [facility]. 5. 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 Ordered 6. You are at risk for complications after dental extractions. Per [facility] Liver Transplant p caty, we recommend checking a CBC and PT INR prior to procedure and transfusion of 4 units FFP (if INR > 1.5) and 1 unit of pheresed platelets (for platelet count <50); use irradiated products to prevent alloimmunization. 7. Complete Hepatitis A and B vaccination series. 8. Pneumovax PPSV23 > 8 weeks after receiving the PCV 13 vaccination, due 06/19/19. Repeat the PPSV23 5 years later. 9. Bone Density Study; treat low bone mass if present. 10. Zinc supplement daily. We recommend 25 mg of elemental zinc ("pure zinc") per day. Two ways to get this would be 110 mg zinc sulfate per day, or 175 mg zinc gluconate per day. Re -check serum zinc level in 2-3 months. Discontinue supplement when serum level normalizes. 11. Vitamin D supplementation: Ergocalciferol 35691 units weekly x 6-8 weeks, then re-chec k 25-OH vit D; can give 1000 to 2000 units cholecalciferol daily when 25-OH vit D [address] 12. Vitamin A supplementation: 42456 IU (International Units, oral capsule). Take 2 capsul es: 42276 IU by mouth 3 times a week for 3 months. Recheck Vitamin A level and discontinue i f normal. 13. Aim for 100 gm of protein/day and consider including a protein supplement twice per da y. documented in this encounter Plan of Treatment +--------+ + + + + | Date | Type | Specialty | Care Team | Description | +--------+ + + + + | 08/08/ | Telephone-S | Nephrology | Angélica Chao, | | 2019 | [place] | | [address] | | | | | | [address] | | | | | | [place], [place] | | | | | | [address] | | | | | | [phone] | | | | | | | | +--------+ + + + + | 09/27/ | Telephone-S | Liver Transplant | Vimal Crowe MD | | | 2019 | [place] | | [address] | | | | | | [address], | | | | | | [place] [address] | | | | | | [phone] | | | | | | | [...] [address] | | | | | | [place] | | | | | | [address] | | | | | | [phone] | | | | | | | | +--------+ + + + + documented as of this encounter Visit Diagnoses Not on filedocumented in this encounter
--- OUTSIDE RECORDS SUMMARY | ~2020-07-29 | XMS | Encounter Summary ---
Demographics + + + | Address | [address] | | | [place] [address] | + + + | Home Phone | | + + + | Preferred Language | Unknown | + + + | Marital Status | Single | + + + | Shinto Affiliation | NON | + + + [...] [place] | | | | | [address] | | + + + + + Care Team Providers + +------+ + | Care Repairing Calibrator Name | Role | Phone | + +------+ + | Sharon David MD | PCP | | + +------+ + Encounter Details +--------+ + + + + | Date | Type | Department | Care Team | Description | +--------+ + + + + | 07/05/ | Pharmacy | [facility] | | | | 2020 | Visit | [address] | | | | | | [place] [address] | | | | | | [phone] | | | +--------+ + + + [...] Rd | | | | | | [place], [place] | | | | | | [address] | | | | | | [phone] | | | | | | | | +--------+ + + + + | 09/27/ | Telephone-S | Liver Transplant | Vimal Crowe MD | | | 2019 | [place] | | [address] | | | | | | [address], | | | | | | [place] [address] | | | | | | [phone] | | | | | | | [...] Rd | | | | | | [place] | | | | | | [address] | | | | | | [phone] | | | | | | | | +--------+ + + + + documented as of this encounter Visit Diagnoses Not on filedocumented in this encounter"
--- OUTSIDE RECORDS SUMMARY | ~2020-07-29 | XMS | Encounter Summary ---
Demographics + + + | Address | [address] | | | [place] [address] | + + + | Home Phone | | + + + | Preferred Language | Unknown | + + + | Marital Status | Single | + + + | Amish Affiliation | NON | + + + [...] [place] | | | | | [address] | | + + + + + Care Team Providers + +------+ + | Care Vertical Boring Mill Operator Name | Role | Phone | + +------+ + | Sharon David MD | PCP | | + +------+ + Reason for Referral Consultation (Routine) +--------+--------+ + + + + | Status | Reason | Specialty | Diagnoses / | Referred By | Referred To | | | | | Procedures | Contact | Contact | +--------+--------+ + + + + | Closed | | Hematology & | Diagnoses | Mia, | | | | | Oncology | Iron | Tyson Buchanan MD | | | | | | overload | [address] | | | | | | Procedures | [address] | | | | | | CONSULT TO | [address] | | | | | | HEMATOLOGY / | [place], [place] | | | | | | ONCOLOGY | [address] | | | | | | PRACTICE | Phone: | | | | | | | [phone] | | | | | | | Fax: | | | | | | | [phone] | | +--------+--------+ + + + + Reason for Visit + +--------+ + | Reason | Onset | Comments | | | Date | | + +--------+ + | Financial resource | 06/24/ | MAP | | assistance | 2019 | | + +--------+ + Encounter Details +--------+ + + + + | Date | Type | Department | Care Team | Description | +--------+ + + + + | 09/04/ | Telephone | [facility] | Tyson Bellamy, | Financial resource | | 2019 | | [facility] at [facility] | MD [address] | assistance (MAP) | | | | [facility] [address] [place], | | | | | [address] [facility] | [place] [address] | | | | | [facility], | [phone] | | | | | [address] | | | | | | [place], [place] | | | | | | [address] | | | | | | [phone] | | | +--------+ + + + [...] this encounter Miscellaneous Notes Telephone Encounter - Claudia Cotter - 07/08/2019 8:08 AM PDTTeam Coordinator Docum entation: Notified Brenda with [facility] that medication has been approved. Rep stated that they will co ntact the patient today. Aupixt message sent to patient to notify of above. elephone Encounter - Charisma Waddell CPhT - 07/07/2019 5:13 PM PDTPrior authorization has been approved for Ferriprox 1,000mg tablets 07/07/2019 through 07/07/2020. [facility] MANAGER BRANCH PA: [id number] elephone Encounter - S Charu ryderktoriya - 07/06/2019 9:01 AM PDTTeam Coordinator Documentation: Called the [facility] P:[phone] to notify that the medication has been approved. Brenda ( rep) stated that they've just spoke with the insurance and a PA was not initiated for 1,000 mg. Spoke to Charisma Waddell w/ pharmacy and was notified that the PA was not submitted for the 1 ,000 mg. Charisma is to submit an urgent PA. Angélica Quinones w/pharmacy notified [facility] that [facility] approval obtained and RN notified patient on 07/02 that the medication was approved an d from 06/25 Here On Bizt message, patient is expecting to get his medication today. Electronicall y signed by Claudia Cotter at 07/06/2019 9:06 AM PDTTelephone Encounter - Claudia Cotter - 06/30/2019 5:27 PM PDTTeam Coordinator Documentation: Note to Pharmacy: Rayshawn Estes, they are requiring another PA since it's 1,000 mg and not 500mg . Thank you! elephone Encounter - Claudia Cotter - 06/30/2019 4:49 PM PDTTeam Coordinator Documentation: Per , patient to be co-managed locally. Referral along with records faxed to [facility] F:[phone]. elephone Encounter - Claudia Cotter - 06/29/2019 3:48 PM PDTTeam Coordinator Documentation: Spoke to Terrence with [facility] P:[phone] and provided the PA information. Repr esentative stated that the fill is for 1,000 mg and the current PA is for 500mg and the phar giuseppe was receiving a strange error code. Terrence said that he would contact the insurance and attempt to change the PA for the 1,000 mg instead of 500mg and if he will be without succes s, Terrence will contact our clinic.Electronically signed by Claudia Cotter at 9 3:52 PM PDTTelephone Encounter - Katarzyna Graff - 06/29/2019 12:12 PM PDTTammrené greene Calling in wanting to know the approval and prior authorization dates. If easier fax over the PA letter for Deferiprone Fax over the pt's medication list too. [facility]- Meera martinez elephone Elyse casarez - Claudia Cotter - 06/26/2019 9:54 AM PDTTeam Coordinator Documentation: Per Meera Martinez, she was able to obtain prior auth for prescription. No Further MAP Assistance required. Thank you, Claudia elephone Encounter - Marsha Parker CPhT - 06/26/2019 9:34 AM PDTReceived a referral for MAP to identify available assistance for Ferriprox (Deferiprone) There referral states Medicaid, has a prior authorization been completed? If approved the p atient should not have a co-pay. If denied, we will need a copy of the denial to submit to the advertising job titles program elephone Meg gray - Madhuri Buckner RN - 06/26/2019 7:49 AM PDTReceived verbal request to arrange refer ral for patient to [facility] per pt/family request. elephone Encounter - Madhuri Buckner RN - 02/2019 12:19 PM PDTReceived physician Order/Prescription and Statement of Medical Necessity form from pharmacy. Completed majority, but will need signature, additional medical informa tion and prescription section filled out by Dr. Bellamy. Will have him complete when he arri ves in clinic tomorrow morning. 12:3 3 PM PDTTelephone Encounter - Claudia Cotter - 06/24/2019 5:05 PM PDTMEDICATION ASSI STANCE REFERRAL Date: 06/24/2019 Time: 5:05 PM Patient Information Name: Steffen Duran Does the patient have a preferred method of contact? No Medication Details Medication name: deferiprone Strength: 500 mg Instructions for use: Take 4 tablets (2,000mg) by mouth three times daily. Indication: Iron overload Diagnosis Code (ICD10): E83.19 Referral Information Does the patient have prescription insurance? Yes, Medicaid If yes, what is the barrier to access? High copay Follow-up Contacts Name of ordering provider: Dr. Tyson Bellamy If applicable, the provider portion of the application should be sent to: [facility] For questions/notification of outcome, contact the following individuals/pools: [facility] Has the patient been notified of the referral? yes documented in this encounter Plan of Treatment +--------+ + + + + | Date | Type | Specialty | Care Team | Description | +--------+ + + + + | 08/08/ | Telephone-S | Nephrology | Angélica Chao, | | 2019 | cheduled | | [address] | | | | | | [address] | | | | | | [place], [place] | | | | | | [address] | | | | | | [phone] | | | | | | | | +--------+ + + + + | 09/27/ | Telephone-S | Liver Transplant | Vimal Crowe MD | | | 2019 | cheduled | | [address] | | | | | | [facility] [address] [place], | | | | | | [place] [address] | | | | | | [phone] | | | | | | | | +--------+ + + + + | 10/03/ | Appointment | Cardiology | | | | 2019 | | | | | +--------+ + + + + | 10/03/ | Office | Cardiology | Cyril Samuel | | | 2019 | Visit | Darren Gomez MD [address] | | | | | | [address] | | | | | | [place], [place] | | | | | | [address] | | | | | | [phone] | | | | | | | | +--------+ + + + + documented as of this encounter Visit Diagnoses + + | Diagnosis | + + | Iron overload - Primary Other disorders of iron metabolism | + + documented in this encounter"
--- OUTSIDE RECORDS SUMMARY | ~2020-07-29 | XMS | Encounter Summary ---
Demographics + + + | Address | [address] [facility] [address] | | | [place] [address] | + + + | Home Phone [...] [place] | | | | | [address] | | + + + + + Care Team Providers + +------+ + | Care Radio Survey Worker Name | Role | Phone | + +------+ + | Sharon David MD | PCP | | + +------+ + Reason for Visit Diagnostic Testing (Routine) +--------+--------+ + + + + | Status | Reason | Specialty | Diagnoses / | Referred By | Referred To | | | | | Procedures | Contact | Contact | +--------+--------+ + + + + | Closed | | Cardiology | Diagnoses | Bischof, | Car Echo | | | | | Pulmonary | Chasidy Quintanilla, | [address] | | | | | hypertension | PA-C [address] | | | | | ([facility]) | [address] | Center for | | | | | Procedures | [place], [place] | Health and | | | | | TRANSTHORACI | [address] | Healing, | | | | | C | Phone: | Building 1 | | | | | ECHOCARDIOGR | [phone] | [place], [place] | | | | | AM, ADULT | Fax: | [address] | | | | | | [phone] | Phone: | | | | | | | [phone] | +--------+--------+ + + + + Encounter Details +--------+ + + + + | Date | Type | Department | Care Team | Description | +--------+ + + + + | 03/19/ | Hospital | Cardiac | | | | 2019 | Encounter | Non-Invasive Testing | | | | | | at [facility] | | | | | | [address] | | | | | | [address] | | | | | | [facility], 2nd | | | | | | floor [facility] [place] | | | | | | [address] | | | | | | [phone] | | | +--------+ + + + [...] + documented as of this encounter Progress Dipesh Rao - 03/19/2019 1:35 PM PDTTransthoracic echocardiogram completed. Final report to follow. documented in this encounter Plan of Treatment +--------+ + + + + | Date | Type | Specialty | Care Team | Description | +--------+ + + + + | 08/08/ | Telephone-S | Nephrology | Angélica Chao, | | | 2019 | [place] | | [address] [facility] | | | | | | [address] | | | | | | [place], [place] | | | | | | [address] | | | | | | [phone] | | | | | | | | +--------+ + + + + | 09/27/ | Telephone-S | Liver Transplant | Vimal Crowe MD | | | 2019 | [place] | | [address] | | | | | | [address] | | | | | | [place] [address] | | | | | | [phone] | | | | | | | | +--------+ + + + + | 10/03/ | Appointment | Cardiology | | | | 2019 | | | | | +--------+ + + + + | 10/03/ | Office | Cardiology | Cyril Samuel | | | 2019 | Visit | Darren Gomez MD [address] [facility] | | | | | | [address] | | | | | | [place], [place] | | | | | | [address] | | | | | | [phone] | | | | | | | | +--------+ + + + + documented as of this encounter Procedures + +--------+ + + + | Procedure Name | Priori | Date/Time | Associated Diagnosis | Comments | | | ty | | | | + +--------+ + + + | TRANSTHORACIC | Routin | 03/19/2019 | Pulmonary | Results for this | | ECHOCARDIOGRAM, | e | 9:03 AM | hypertension (HCC) | procedure are in the | | ADULT | | PDT | | results section. | + +--------+ + + + documented in this encounter Results TRANSTHORACIC ECHOCARDIOGRAM, ADULT (03/19/2019 9:03 AM PDT) + + + + + + | Component | Value | Ref Range | Performed | Pathologist | | | | | At | Signature | + + + + + + | AOV VMN | 12.1 | | [facility] | | | (AORTIC | | | OF | | | VALVE) | | | CARDIOLOGY | | + + + + + + | BIPLANE, EF | 63 | | [facility] | | | | | | OF | | | | | | CARDIOLOGY | | + + + + + + | EJECTION | 60 to 65 | | [facility] | | | FRACTION | | | OF | | | | | | CARDIOLOGY | | + + + + + + | LA | 3.9 | | [facility] | | | DIMENSION | | | OF | | | | | | CARDIOLOGY | | + + + + + + | LVIDD | 5.8 | | [facility] | | | | | | OF | | | | | | CARDIOLOGY | | + + + + + + | MV A VMAX | 0.9 | | [facility] | | | | | | OF | | | | | | CARDIOLOGY | | + + + + + + | MV E? | 0.1 | | [facility] | | | | | | OF | | | | | | CARDIOLOGY | | + + + + + + | MV E VMAX | 0.8 | | [facility] | | | | | | OF | | | | | | CARDIOLOGY | | + + + + + + | MV E/E' | 7.1 | | [facility] | | | (MITRAL | | | OF | | | VALVE) | | | CARDIOLOGY | | + + + + + + | MITRAL | 11.1 | | [facility] | | | ANNULUS | | | OF | | | MEDIAL E/E" | | | CARDIOLOGY | | | (TISSUE | | | | | | DOPPLER) | | | | | + + + + + + | RVSP | 32 | | [facility] | | | | | | OF | | | | | | CARDIOLOGY | | + + + + + + | RV TAPSE | 2.8 | | [facility] | | | | | | OF | | | | | | CARDIOLOGY | | + + + + + + | RV TDI S? | 21.0 | | [facility] | | | | | | OF | | | | | | CARDIOLOGY | | + + + + + + | TR VMAX | 2.6 | | [facility] | | | (TRICUSPID | | | OF | | | VALVE) | | | CARDIOLOGY | | + + + + + + | EJECTION | 62.5 | % | [facility] | | | FRACTION | | | OF | | | RANGE MEAN | | | CARDIOLOGY | | | VALUE | | | | | + + + + + + + + | Specimen | + + | | + + + + + | Narrative | Performed At | + + + | [facility] | [facility] | | [facility]chocardi[facility] [address] | CARDIOLOGY | | [place], [place] [address] Ph: | | | Pt Name: DOUG LAWOSN | | | Study Date/Time 03/19/2019 / 9:03:07 AMN: [id number] | | | Most recent prior: -Acc #: [id number] | | | No. previous echos: 0DOB: 1965 54 years Heart | | | Rate: 85 bpmHeight: 70.0 in Blood | | | Pressure: 118/69 mm/HgWeight: 184.0 lb | | | Gender: MBSA: 2.01 m | | | Order ID: [id number] Study | | | Location: OPSonographer: Dipesh Severino MA, [facility], [facility] | | | Provider: Chasidy Benitesodalradha Performed: 2D, Color flow, | | | Spectral Doppler.Study Quality: Good.Exam Indication: Pulmonary | | | hypertension; Preoperative EvaluationHistory: CKD, abnormal EKG | | | Patient history has been obtained from the EHR Transthoracic | | | Echocardiographic Report | | | + +Final | | | Impressions: | | | | | | | | | 1. The left | | | ventricular size is normal. 2. The LV | | | function is normal. 3. | | | Right ventricular size, thickness and function are normal. | | | | | | 4. The aortic valve is trileaflet and moderately calcified. | | | 5. Mild aortic stenosis (See comments below). | | | 6. There are no prior exams available for comparison. | | | | | | | | | + + | | | Description of Findings: Cardiac Rhythm: Normal sinus rhythm.Left | | | Ventricle: The left ventricular size is normal. Visually estimated | | | left ventricular ejection fraction is 60 - 65%. There is no left | | | ventricular hypertrophy. The LV diastolic filling pattern is normal. | | | The ejection fraction is 62.7 % as measured by Gomez's biplane | | | method. The LV function is normal. There is a false tendon in the | | | LV.Left Ventricular Wall Motion: Left ventricular systolic thickening | | | is normal in all segments.Atria: Left atrial size is mildly dilated. | | | Normal right atrium.Right Ventricle: Right ventricular size, thickness | | | and function are normal. TAPSE measures 2.8cm. The RV TDI s' velocity | | | is 21cm/sec.Aortic Valve: The aortic valve is trileaflet and | | | moderately calcified. No indication of aortic valve regurgitation. The | | | peak & mean transvalvular gradients are 20.4 mmHg and 12.1 mmHg | | | respectively. The DVI is 0.49. The calculated BOOM is 1.99 cm | | | using an LVOT diameter of 2.28 cm (continuity equation). The | | | indexed stroke volume is 40.8 ml/m | | | . Mild aortic stenosis.Mitral Valve: The mitral valve is | | | structurally normal. No evidence of mitral valve stenosis. No evidence | | | of mitral valve regurgitation.Tricuspid Valve: The tricuspid valve is | | | structurally normal. Trace tricuspid regurgitation. The tricuspid | | | regurgitant velocity is 2.61 m/s, and with an assumed right atrial | | | pressure of 5 mmHg, the estimated right ventricular systolic pressure | | | is normal at 32.2 mmHg.Pulmonic Valve: The pulmonic valve is | | | structurally normal. The peak and mean transvalvular pulmonic | | | gradients are 13.4 mmHg and 5.7 mmHg respectively. Transvalvular | | | gradients are as expected for valve type.Aorta: Visualized portions of | | | the ascending aorta and aortic root appear normal.Venous: Inferior | | | vena cava is normal with normal inspiratory collapse.Pericardium: No | | | pericardial effusion is seen. Additional Findings: There are no prior | | | exams.2D Measurements Doppler Measurements | | | 2D NL Values Aortic MitralLVID(d) | | | 5.77 (3.5-5.7cm) Max Mango 2.26 Peak E 0.78 | | | cm m/s | | | m/sLVID(s) 3.67 Mean grad 12.1 Peak A | | | 0.93 cm | | | mmHg m/sIVS(d) 1.00 (0.6-1.1cm) LVOT Mango | | | 1.06 E/A Ratio 0.84 cm | | | m/sLVPW(d) 1.19 (0.6-1.1cm) LVOT VTI 0.201 | | | TDI (E/e') 7.1 cm | | | mLA A/Ps 2D 3.93 (2.7-3.9cm) LVOT Diam 2.28 MV mn gd | | | cm cmLA vol A/L 46.9 | | | (16-34) LVOT SV 40.8 MR EROindex ml/m | | | indexed ml/m | | | LA vol MOD 90.8 (40-73ml) Tricuspid PulmonicBP | | | ml TR Vmax 2.61 PV Vmax 1.8LA | | | vol MOD 45.1 (16-34) m/s | | | m/sindex ml/m | | | RA Press 5 RVOT VTI 19.8LVEDV | | | 104.79 mmHg | | | cmindex ml/m | | | RVSP 32 PV mn gd 6 | | | mmHgBiplane EF 62.7 % mmHg | | | Aorta: | | | Index: Ao Sinus | | | 3.67 (2.1-3.5cm) | | | cm Asc Ao | | | 3.50 (prox) | | | cmEvaluation of chamber size and geometry is accomplished through | | | the incorporation of linear, volumetric, and indexed values Report | | | electronically signed by: [id number] Guillermo Augustine MD, PhD | | | (03/19/2019, 1:46:14 PM) Final | | |index ml/m RVSP 32 PV mn gd 6 mmHg | | |Biplane EF 62.7 % mmHg | | | | | | Aorta: Index: | | | Ao Sinus 3.67 (2.1-3.5cm) | | | cm | | | Asc Ao 3.50 | | | (prox) cm | | |Evaluation of chamber size and geometry is accomplished through the incorporation of | | |linear, volumetric, and indexed values | | | | | |Report electronically signed by: [id number] Guillermo Augustine MD, PhD (03/19/2019, | | |1:46:14 PM) | | | | | | | | | | | | Final | | + + + + + | Procedure Note | + + | Interface, Cardiology Results - 03/19/2019 1:46 PM [facility] [employer] | | [facility] Echocardi[facility] [address] [place] [address] | | [place], [place] [address] Pt Name: DOUG | | CHAN LAWSON Study Date/Time 03/19/2019 / 9:03:07 AMMRN: [id number] | | Most recent prior: -Acc #: [id number] No. previous echos: 0DOB: | | 1965 54 years Heart Rate: 85 bpmHeight: 70.0 in Blood | | Pressure: 118/69 mm/HgWeight: 184.0 lb Gender: MBSA: | | 2.01 m | | Order ID: [id number] Study Location: OPSonographer: Dipesh Chang | | Maycol MOYER, [facility], [facility] Provider: Chasidy Benitesodalradha Performed: 2D, | | Color flow, Spectral Doppler.Study Quality: Good.Exam Indication: Pulmonary | | hypertension; Preoperative EvaluationHistory: CKD, abnormal EKG Patient history has been | | obtained from the EHR Transthoracic Echocardiographic | | Report+ +Final Impressions: | | | | 1. The left | | ventricular size is normal. 2. The LV function is normal. | | 3. Right ventricular size, thickness and function are | | normal. 4. The aortic valve is | | trileaflet and moderately calcified. 5. Mild aortic stenosis (See comments below). | | 6. There are no prior exams available for comparison. | | | | + + Description of Findings: | | Cardiac Rhythm: Normal sinus rhythm.Left Ventricle: The left ventricular size is | | normal. Visually estimated left ventricular ejection fraction is 60 - 65%. There is no | | left ventricular hypertrophy. The LV diastolic filling pattern is normal. The ejection | | fraction is 62.7 % as measured by Gomez's biplane method. The LV function is normal. | | There is a false tendon in the LV.Left Ventricular Wall Motion: Left ventricular | | systolic thickening is normal in all segments.Atria: Left atrial size is mildly dilated. | | Normal right atrium.Right Ventricle: Right ventricular size, thickness and function are | | normal. TAPSE measures 2.8cm. The RV TDI s' velocity is 21cm/sec.Aortic Valve: The | | aortic valve is trileaflet and moderately calcified. No indication of aortic valve | | regurgitation. The peak & mean transvalvular gradients are 20.4 mmHg and 12.1 mmHg | | respectively. The DVI is 0.49. The calculated BOOM is 1.99 cm | | using an LVOT diameter of 2.28 cm (continuity equation). The indexed stroke volume is | | 40.8 ml/m | | . Mild aortic stenosis.Mitral Valve: The mitral valve is structurally normal. No | | evidence of mitral valve stenosis. No evidence of mitral valve regurgitation.Tricuspid | | Valve: The tricuspid valve is structurally normal. Trace tricuspid regurgitation. The | | tricuspid regurgitant velocity is 2.61 m/s, and with an assumed right atrial pressure of | | 5 mmHg, the estimated right ventricular systolic pressure is normal at 32.2 | | mmHg.Pulmonic Valve: The pulmonic valve is structurally normal. The peak and mean | | transvalvular pulmonic gradients are 13.4 mmHg and 5.7 mmHg respectively. Transvalvular | | gradients are as expected for valve type.Aorta: Visualized portions of the ascending | | aorta and aortic root appear normal.Venous: Inferior vena cava is normal with normal | | inspiratory collapse.Pericardium: No pericardial effusion is seen. Additional Findings: | | There are no prior exams.2D Measurements Doppler Measurements | | 2D NL Values Aortic MitralLVID(d) 5.77 (3.5-5.7cm) Max Mango 2.26 | | Peak E 0.78 cm m/s m/sLVID(s) | | 3.67 Mean grad 12.1 Peak A 0.93 cm | | mmHg m/sIVS(d) 1.00 (0.6-1.1cm) LVOT Mango 1.06 E/A Ratio 0.84 | | cm m/sLVPW(d) 1.19 (0.6-1.1cm) LVOT VTI 0.201 | | TDI (E/e') 7.1 cm mLA A/Ps 2D 3.93 (2.7-3.9cm) | | LVOT Diam 2.28 MV mn gd cm cmLA vol A/L 46.9 | | (16-34) LVOT SV 40.8 MR EROindex ml/m | | indexed ml/m | | LA vol MOD 90.8 (40-73ml) Tricuspid PulmonicBP ml TR | | Vmax 2.61 PV Vmax 1.8LA vol MOD 45.1 (16-34) m/s | | m/sindex ml/m | | RA Press 5 RVOT VTI 19.8LVEDV 104.79 | | mmHg cmindex ml/m | | RVSP 32 PV mn gd 6 mmHgBiplane EF 62.7 % | | mmHg Aorta: Index: | | Ao Sinus 3.67 (2.1-3.5cm) cm | | Asc Ao 3.50 (prox) | | cmEvaluation of chamber size and geometry is accomplished through the incorporation of | | linear, volumetric, and indexed values Report electronically signed by: [id number] Guillermo | | Davide RUDD, PhD (03/19/2019, 1:46:14 PM) Final | |Aorta: Visualized portions of the ascending aorta and aortic root appear normal. | |Venous: Inferior vena cava is normal with normal inspiratory collapse. | |Pericardium: No pericardial effusion is seen. | | | |Additional Findings: There are no prior exams. | |2D Measurements Doppler Measurements | | | | 2D NL Values Aortic Mitral | |LVID(d) 5.77 (3.5-5.7cm) Max Mango 2.26 Peak E 0.78 | | cm m/s m/s | |LVID(s) 3.67 Mean grad 12.1 Peak A 0.93 | | cm mmHg m/s | |IVS(d) 1.00 (0.6-1.1cm) LVOT Mango 1.06 E/A Ratio 0.84 | | cm m/s | |LVPW(d) 1.19 (0.6-1.1cm) LVOT VTI 0.201 TDI (E/e') 7.1 | | cm m | |LA A/Ps 2D 3.93 (2.7-3.9cm) LVOT Diam 2.28 MV mn gd | | cm cm | |LA vol A/L 46.9 (16-34) LVOT SV 40.8 MR ERO | |index ml/m indexed ml/m | |LA vol MOD 90.8 (40-73ml) Tricuspid Pulmonic | |BP ml TR Vmax 2.61 PV Vmax 1.8 | |LA vol MOD 45.1 (16-34) m/s m/s | |index ml/m RA Press 5 RVOT VTI 19.8 | |LVEDV 104.79 mmHg cm | |index ml/m RVSP 32 PV mn gd 6 mmHg | |Biplane EF 62.7 % mmHg | | | | Aorta: Index: | | Ao Sinus 3.67 (2.1-3.5cm) | | cm | | Asc Ao 3.50 | | (prox) cm | |Evaluation of chamber size and geometry is accomplished through the incorporation of | |linear, volumetric, and indexed values | | | |Report electronically signed by: [id number] Guillermo Augustine MD, PhD (03/19/2019, | |1:46:14 PM) | | | | | | | | Final | + + + + + + + | Performing | Address | City/State/Zipcode | Phone Number | | Organization | | | | + + + + + | [facility] | [address] | [place], [place] | | | CARDIOLOGY | [address] | [address] | | + + + + + documented in this encounter Visit Diagnoses + + | Diagnosis | + + | Pulmonary hypertension (HCC) Other chronic pulmonary heart diseases | + + documented in this encounter
--- OUTSIDE RECORDS SUMMARY | ~2020-07-29 | XMS | Encounter Summary ---
Demographics + + + | Address | [address] | | | [place] [address] | + + + | Home Phone [...] [place] | | | | | [address] | | + + + + + Care Team Providers + +------+ + | Care Orchid Transplanter Name | Role | Phone | + +------+ + | Sharon David MD | PCP | | + +------+ + Encounter Details +--------+ + + + + | Date | Type | Department | Care Team | Description | +--------+ + + + + | 03/16/ | Abstract | Clinical | Vimal Crowe MD | | | 2019 | | Transplant Services | [address] | | | | | [address] | [address] [place], | | | | | [place], | [place] [address] | | | | | [place] [address] | [phone] | | | | | [phone] | | | +--------+ + + + [...] [address] | | | | | | [place], [place] | | | | | | [address] | | | | | | [phone] | | | | | | | | +--------+ + + + + | 09/27/ | Telephone-S | Liver Transplant | Vimal Crowe MD | | | 2019 | [place] | | [address] | | | | | | [facility] [address] [place], | | | | | | [place] [address] | | | | | | [phone] | | | | | | | | +--------+ + + + + | 10/03/ | Appointment | Cardiology | | | | 2019 | | | | | +--------+ + + + + | 10/03/ | Office | Cardiology | Cyril Samuel | | | 2019 | Visit | Darren Gomez MD [address] | | | | | | [address] | | | | | | [place], [place] | | | | | | [address] | | | | | | [phone] | | | | | | | | +--------+ + + + + documented as of this encounter Procedures + +--------+ + + + | Procedure Name | Priori | Date/Time | Associated Diagnosis | Comments | | | ty | | | | + +--------+ + + + | LIVER TRANSPLANT | Routin | 03/15/2020 | | Results for this | | POST PANEL (EXT | e | 11:20 AM | | procedure are in the | | RESULTS) | | PDT | | results section. | + +--------+ + + + documented in this encounter Results LIVER TRANSPLANT POST PANEL (EXT RESULTS) (03/15/2020 11:20 AM PDT) + + + + + [...] + + | CHLORIDE, | 103 | mmol/L | [facility] | | | PLASMA | | | LAB - | | | (LAB) | | | [place] | | + + + + + + | TOTAL CO2, | 25 | mmol/L | [facility] | | | PLASMA | | | LAB - | | | (LAB) | | | [place] | | + + + + + + | GLUCOSE, | 161 (A) | 65 - 110 mg/dL | [facility] | | | PLASMA | | | LAB - | | | (LAB) | | | [place] | | + + + + + + | BUN, PLASMA | 32 | mg/dL | [facility] | | | (LAB) | | | LAB - | | | | | | [place] | | + + + + + + | CREATININE | 2.42 | mg/dL | [facility] | | | PLASMA | | | LAB - | | | (LAB) | | | [place] | | + + + + + + | CALCIUM, | 9.2 | mg/dL | [facility] | | | PLASMA | | | LAB - | | | (LAB) | | | [place] | | + + + + + + | PHOSPHORUS, | 4.5 | mg/dL | [facility] | | | [...] + + + | ALT (SGPT) | 12 | U/L | [facility] | | | | | | LAB - | | | | | | [place] | | + + + + + + | URIC ACID, | 8.8 | mg/dL | [facility] | | | PLASMA | | | LAB - | | | (LAB) | | | [place] | | + + + + + + | WHITE CELL | 4.6 | K/cu mm | [facility] | | | COUNT | | | LAB - | | | | | | [place] | | + + + + + + | HEMATOCRIT | 32.3 | % | [facility] | | | | | | LAB - | | | | | | [place] | | + + + + + + | HEMOGLOBIN | 11.3 (A) | 13.5 - 17.5 | [facility] | | | | | g/dL | LAB - | | | | | | [place] | | + + + + + + | PLATELET | 111 | K/cu mm | [facility] | | | COUNT | | | LAB - | | | | | | [place] | | + + + + + + | TACROLIMUS | 5.9 | ng/mL | [facility] | | | ([address]) | | | LAB - | | | | | | [place] | | + + + + + + | ETHYL | Negative | | [facility] | | | GLUCURONIDE | | | LAB - | | | , URINE | | | [place] | | + [...] + + | [facility] - | [address] | [place] | [phone] | | [place] | | | | + + + + + documented in this encounter Visit Diagnoses Not on filedocumented in this encounter"
--- OUTSIDE RECORDS SUMMARY | ~2020-07-29 | XMS | Encounter Summary ---
Demographics + + + | Address | [address] | | | [place] [address] | + + + | Home Phone [...] [place] | | | | | [address] | | + + + + + Care Team Providers + +------+ + | Care Assembler Plastic Boat Name | Role | Phone | + +------+ + PCP | Unavailable | + +------+ + Encounter Details +--------+ + + + + | Date | Type | Department | Care Team | Description | +--------+ + + + + | 03/27/ | Results | | Rod Velasquez MD | | | 1998 | Only | | [address] | | | | | | [address] | | | | | | [place] [address] | | | | | | [phone] | | | | | | | [...] Angélica Chao, | | | 2019 | trenotn | | [address] | | | | | | [address] | | | | | | [place], [place] | | | | | | [address] | | | | | | [phone] | | | | | | | | +--------+ + + + + | 09/27/ | Telephone-S | Liver Transplant | Vimal Crowe MD | | | 2019 | cheduled | | [address] | | | | | | [address], | | | | | | [place] [address] | | | | | | [phone] | | | | | | | [...] Rd | | | | | | [place], [place] | | | | | | [address] | | | | | | [phone] | | | | | | | | +--------+ + + + + documented as of this encounter Procedures + +--------+ + + + | Procedure Name | Priori | Date/Time | Associated Diagnosis | Comments | | | ty | | | | + +--------+ + + + | TIBIA AND FIBULA, 2 | Routin | 04/11/1999 | | Results for this | | VIEWS | e | 2:45 PM | | procedure are in the | | | | PDT | | results section. | + +--------+ + + + | KNEE, 2 VIEWS | Routin | 04/11/1999 | | Results for this | | | e | 2:45 PM | | procedure are in the | | | | PDT | | results section. | + +--------+ + + + | FLUOROSCOPY, | Routin | 03/27/1999 | | Results for this | | INDEPENDENT PORT. | e | 7:15 PM | | procedure are in the | | | | PDT | | results section. | + +--------+ + + + documented in this encounter Results TIBIA AND FIBULA, 2 VIEWS (04/11/1999 2:45 PM PDT) + + + + + + | Component | Value | Ref Range | Performed | Pathologist | | | | | At | Signature | + + + + + + | TIBIA AND | Radiologist 1: ELIA, | | | | | FIBULA, 2 | Kianna GUEVARA-Radiologist | | | | | VIEWS | 2: PAOLA RODRIGEZ | | | | | | KiannaRIGHT TIBIA AND | | | | | | FIBULA: 04/11/99 at 1445 | | | | | | hours. Dictated: | | | | | | 04/12/99 COMPARISON: | | | | | | Comparison is made with | | | | | | prior study of a right | | | | | | tibia andfibula from | | | | | | 03/28/99. FINDINGS: | | | | | | There is no change in | | | | | | alignment or appearance | | | | | | of thecomminuted | | | | | | fracture of the proximal | | | | | | tibia with | | | | | | approximately 1/2 | | | | | | shaftwidth posterior | | | | | | medial displacement and | | | | | | lateral angulation of | | | | | | thedistal fragment. A | | | | | | screw extends | | | | | | transversely through the | | | | | | righttibial plateau. | | | | | | The external fixator | | | | | | is unchanged in | | | | | | position,secured by | | | | | | three screws in the mid | | | | | | tibial shaft and | | | | | | multiple wiresthrough | | | | | | the proximal tibial | | | | | | metaphysis. The | | | | | | tibiotalar joint | | | | | | isroughly maintained. | | | | | | IMPRESSION: No | | | | | | significant change in | | | | | | alignment of the | | | | | | comminuted proximal | | | | | | tibialfracture with | | | | | | external fixation. END | | | | | | OF IMPRESSION: | | | | + + + + + + + + | Specimen | + + | | + + + +---------+ + + | Performing | Address | City/State[facility] | Phone Number | | Organization | | | | + +---------+ + + | [facility] DEPARTMENT | | | | | RADIOLOGY | | | | + +---------+ + + KNEE, 2 VIEWS (04/11/1999 2:45 PM PDT) + + + + + + | Component | Value | Ref Range | Performed | Pathologist | | | | | At | Signature | + + + + + + | KNEE, 2 | Radiologist 1: ELIA | | | | | SYEDA | Kianna GUEVARA-Radiologist | | | | | | 2: PAOLA RODRIGEZ | | | | | | KiannaRIGHT KNEE: 04/11/99 | | | | | | at 1445 hours. | | | | | | Dictated: 04/12/99 | | | | | | COMPARISON: Right knee, | | | | | | 03/22/99, and right | | | | | | tibia and fibula | | | | | | from03/28/99. FINDINGS: | | | | | | There is no change in | | | | | | alignment of the | | | | | | visualized | | | | | | proximalcomminuted | | | | | | tibial fracture. An | | | | | | external fixator is in | | | | | | place. A | | | | | | screwtransverses the | | | | | | proximal tibial plateau. | | | | | | The joint space | | | | | | ismaintained. No | | | | | | obvious intra-articular | | | | | | fragment is seen. | | | | | | IMPRESSION: No | | | | | | significant change in | | | | | | alignment of the | | | | | | comminuted proximal | | | | | | tibiafracture with | | | | | | external fixation. END | | | | | | OF IMPRESSION: | | | | + + + + + + + + | Specimen | + + | | + + + +---------+ + + | Performing | Address | City/State/Zipcode | Phone Number | | Organization | | | | + +---------+ + + | [facility] DEPARTMENT OF | | | | | RADIOLOGY | | | | + +---------+ + + FLUOROSCOPY, INDEPENDENT PORT. (03/27/1999 7:15 PM PDT) + + + + + + | Component | Value | Ref Range | Performed | Pathologist | | | | | At | Signature | + + + + + + | FLUOROSCOPY | Radiologist 1: ELIA, | | | | | , | Kianna GUEVARA IMPRESSION: | | | | | INDEPENDENT | FLUOROSCOPY SERVICES | | | | | PORT. | WERE PERFORMED UNDER THE | | | | | | DIRECTION OF | | | | | | THEORDERING PHYSICIAN. | | | | | | END OF IMPRESSION: | | | | | | | | | | | | | | | | | |END OF IMPRESSION: | | | | | | | [...] | | + +---------+ + + | [place] DEPARTMENT OF | | | | | RADIOLOGY | | | | + +---------+ + + documented in this encounter Visit Diagnoses Not on filedocumented in this encounter"
--- OUTSIDE RECORDS SUMMARY | ~2020-07-29 | XMS | Encounter Summary ---
Demographics + + + | Address | [address] | | | [place] [address] | + + + | Home Phone [...] [place] | | | | | [address] | | + + + + + Care Team Providers + +------+ + | Care Solar Electric Installer Name | Role | Phone | + +------+ + | Sharon David MD | PCP | | + +------+ + Encounter Details +--------+ + + + + | Date | Type | Department | Care Team | Description | +--------+ + + + + | 06/24/ | MyChart | Liver Transplant | Vimal Crowe MD | Steffen Duran | | 2019 | Encounter | at [facility] [address] | Trans[address] | | | | [address] | [address] [place], | | | | | Physician's | [place] [address] | | | | | Pavilion, 2nd floor | [phone] | | | | | [place], [place] | | | | | | [address] | | | | | | [phone] | | | +--------+ + + + [...] Telephone Encounter - Haley Fernández RN - 06/25/2019 12:34 PM PDTSee reply to previous My Chart encounter. d ocumented in this encounter Plan of Treatment +--------+ + + + + | Date | Type | Specialty | Care Team | Description | +--------+ + + + + | 08/08/ | Telephone-S | Nephrology | Angélica Chao, | | | 2019 | [place] | | [address] | | | | | | [address] | | | | | | [place], [place] | | | | | | [address] | | | | | | [phone] | | | | | | | | +--------+ + + + + | 09/27/ | Telephone-S | Liver Transplant | Vimal Crowe MD | | | 2019 | cheduled | | [address] | | | | | | [address], | | | | | | [place] [address] | | | | | | [phone] | | | | | | | [...] Rd | | | | | | [place] | | | | | | [address] | | | | | | [phone] | | | | | | | | +--------+ + + + + documented as of this encounter Visit Diagnoses Not on filedocumented in this encounter"
--- OUTSIDE RECORDS SUMMARY | ~2020-07-29 | XMS | Encounter Summary ---
Demographics + + + | Address | [address] | | | [place] [address] | + + + | Home Phone | | + + + | Preferred Language | Unknown | + + + | Marital Status | Single | + + + | Voodoo Affiliation | NON | + + + | Race | White | + + + | Ethnic Group | Not or | + + + Author + + + | Author | [facility] | + + + | Organization | [facility] | + + + | [...] [place] | | | | | [address] | | + + + + + Care Team Providers + +------+ + | Care Entry Specialist Name | Role | Phone | + +------+ + | Sharon David MD | PCP | | + +------+ + Encounter Details +--------+ + + + + | Date | Type | Department | Care Team | Description | +--------+ + + + + | 07/29/ | Pharmacy | [facility] | | | | 2020 | Visit | [address] | | | | | | [address] | | | | | | [place] [address] | | | | | | [phone] | | | +--------+ + + + [...] Rd | | | | | | [place] | | | | | | [address] | | | | | | [phone] | | | | | | | | +--------+ + + + + | 09/27/ | Telephone-S | Liver Transplant | Vimal Crowe MD | | | 2019 | [place] | | [address] | | | | | | [facility] [address], | | | | | | [place] [address] | | | | | | [phone] | | | | | | | [...] [place] | | | | | | [address] | | | | | | [phone] | | | | | | | | +--------+ + + + + documented as of this encounter Visit Diagnoses Not on filedocumented in this encounter"
--- OUTSIDE RECORDS SUMMARY | ~2020-07-29 | XMS | Encounter Summary ---
Demographics + + + | Address | [address] | | | [place] [address] | + + + | Home Phone [...] [place] | | | | | [address] | | + + + + + Care Team Providers + +------+ + | Care Scratch Finisher Name | Role | Phone | + +------+ + | Sharon David MD | PCP | | + +------+ + Encounter Details +--------+--------+ + + + | Date | Type | Department | Care Team | Description | +--------+--------+ + + + | 11/16/ | Travel | | | | | [...] | | | | | | [place], [place] | | | | | | [address] | | | | | | [phone] | | | | | | | | +--------+ + + + + | 09/27/ | Telephone-S | Liver Transplant | Vimal Crowe MD | | | 2019 | [place] | | [address] | | | | | | [address], | | | | | | [place] [address] | | | | | | [phone] | | | | | | | [...] [place] | | | | | | [address] | | | | | | [phone] | | | | | | | | +--------+ + + + + documented as of this encounter Visit Diagnoses Not on filedocumented in this encounter"
--- OUTSIDE RECORDS SUMMARY | ~2020-07-29 | XMS | Encounter Summary ---
Demographics + + + | Address | [address] | | | [place] [address] | + + + | Home Phone [...] [place] | | | | | [address] | | + + + + + Care Team Providers + +------+ + | Care Ad Compositor Name | Role | Phone | + +------+ + | Sharon David MD | PCP | | + +------+ + Encounter Details +--------+ + + + + | Date | Type | Department | Care Team | Description | +--------+ + + + + | 06/16/ | Pharmacy | [facility] | | | | 2020 | Visit | [address] | | | | | | [address] | | | | | | [place] [address] | | | | | | [phone] | | | +--------+ + + + [...] Rd | | | | | | [place], [place] | | | | | | [address] | | | | | | [phone] | | | | | | | | +--------+ + + + + | 09/27/ | Telephone-S | Liver Transplant | Vimal Crowe MD | | | 2019 | cheduled | | [address] | | | | | | [address], | | | | | | [place] [address] | | | | | | [phone] | | | | | | | [...] Rd | | | | | | [place] | | | | | | [address] | | | | | | [phone] | | | | | | | | +--------+ + + + + documented as of this encounter Visit Diagnoses Not on filedocumented in this encounter"
--- OUTSIDE RECORDS SUMMARY | ~2020-07-29 | XMS | Encounter Summary ---
Demographics + + + | Address | [address] | | | [place] [address] | + + + | Home Phone [...] [place] | | | | | [address] | | + + + + + Care Team Providers + +------+ + | Care Case Packer And Sealer Name | Role | Phone | + +------+ + | Sharon David MD | PCP | | + +------+ + Reason for Visit + + + | Reason | Comments | + + + | Liver Transplant | ER | | Follow Up | | + + + Encounter Details +--------+ + + + + | Date | Type | Department | Care Team | Description | +--------+ + + + + | 10/05/ | Documentati | Clinical | Judie Mota, | Liver Transplant | | 2019 | on | Transplant Services | RN [address] | Follow Up (ER ) | | | | [address] | [address] | | | | | [place], | [place], [place] | | | | | [place] [address] | [address] | | | | | [phone] | | | +--------+ + + + [...] Telephone Encounter - Judie Mota RN - 10/05/2019 8:42 AM PSTPatients mom called th is am, Donell is having chills ( no reported fever) n/v and diarrhea. He is unable to keep down fluids. He will come to the ER via private car. Report called to ER. Electronically zeinab d by Judie Mota RN at 10/05/2019 8:48 AM PSTdocumented in this encounter Plan of [...] Rd | | | | | | [place], [place] | | | | | | [address] | | | | | | [phone] | | | | | | | | +--------+ + + + + | 09/27/ | Telephone-S | Liver Transplant | Vimal Crowe MD | | | 2019 | [place] | | [address] | | | | | | [address], | | | | | | [place] [address] | | | | | | [phone] | | | | | | | [...] [place] | | | | | | [address] | | | | | | [phone] | | | | | | | | +--------+ + + + + documented as of this encounter Visit Diagnoses Not on filedocumented in this encounter"
--- OUTSIDE RECORDS SUMMARY | ~2020-07-29 | XMS | Encounter Summary ---
Demographics + + + | Address | [address] | | | [place] [address] | + + + | Home Phone [...] [place] | | | | | [address] | | + + + + + Care Team Providers + +------+ + | Care Delinquent Notice Machine Operator Name | Role | Phone | + +------+ + | Sharon David MD | PCP | | + +------+ + Encounter Details +--------+ + + + + | Date | Type | Department | Care Team | Description | +--------+ + + + + | 07/07/ | MyChart | Liver Transplant | Vimal Crowe MD | RE: Steffen Duran | | 2018 | Encounter | at [facility] [address] | [address] | | | | | [address] | [address] [place], | | | | | Physician's | [place] [address] | | | | | [place]y[address] [place] [address] | [phone] | | | | | [place], [place] | | | | | | [address] | | | | | | [phone] | | | +--------+ + + + [...] Rd | | | | | | [place], [place] | | | | | | [address] | | | | | | [phone] | | | | | | | | +--------+ + + + + | 09/27/ | Telephone-S | Liver Transplant | Vimal Crowe MD | | | 2019 | cheduled | | [address] | | | | | | [address], | | | | | | [place] [address] | | | | | | [phone] | | | | | | | [...] Rd | | | | | | [place], [place] | | | | | | [address] | | | | | | [phone] | | | | | | | | +--------+ + + + + documented as of this encounter Visit Diagnoses Not on filedocumented in this encounter"
--- OUTSIDE RECORDS SUMMARY | ~2020-07-29 | XMS | Encounter Summary ---
Demographics + + + | Address | [address] | | | [place] [address] | + + + | Home Phone [...] [place] | | | | | [address] | | + + + + + Care Team Providers + +------+ + | Care Av Specialist Name | Role | Phone | + +------+ + | Sharon David MD | PCP | | + +------+ + Encounter Details +--------+ + + + + | Date | Type | Department | Care Team | Description | +--------+ + + + + | 08/04/ | Pharmacy | Outpatient Retail | | | | 2018 | Visit | [facility] | | | | | | [address] | | | | | | Loop [place], [place] | | | | | | [address] | | | | | | [phone] | | | +--------+ + + + [...] Rd | | | | | | [place], [place] | | | | | | [address] | | | | | | [phone] | | | | | | | | +--------+ + + + + | 09/27/ | Telephone-S | Liver Transplant | Vimal Crowe MD | | | 2019 | cheduled | | [address] | | | | | | [facility] [place], | | | | | | [place] [address] | | | | | | [phone] | | | | | | | [address] Rd | | | | | | [place], [place] | | | | | | [address] | | | | | | [phone] | | | | | | | | +--------+ + + + + documented as of this encounter Visit Diagnoses Not on filedocumented in this encounter"
--- OUTSIDE RECORDS SUMMARY | ~2020-07-29 | XMS | Encounter Summary ---
Demographics + + + | Address | [address] | | | [place] [address] | + + + | Home Phone [...] | | | | | [place] | | | | | [address] | | + + + + + Care Team Providers + +------+ + | Care Crm System Administrator Name | Role | Phone | + +------+ + | Sharon David MD | PCP | | + +------+ + Encounter Details +--------+ + + + + | Date | Type | Department | Care Team | Description | +--------+ + + + + | 07/07/ | Pharmacy | Outpatient Retail | | | | 2019 | Visit | [facility] | | | | | | [address] | | | | | | [place], [place] | | | | | | [address] | | | | | | [phone] | | | +--------+ + + + [...] Rd | | | | | | [place], [place] | | | | | | [address] | | | | | | [phone] | | | | | | | | +--------+ + + + + | 09/27/ | Telephone-S | Liver Transplant | Vimal Crowe MD | | | 2019 | cheduled | | [address] | | | | | | [facility] [place], | | | | | | [place] [address] | | | | | | [phone] | | | | | | | [address] | | | | | | [place], [place] | | | | | | [address] | | | | | | [phone] | | | | | | | | +--------+ + + + + documented as of this encounter Visit Diagnoses Not on filedocumented in this encounter"
--- OUTSIDE RECORDS SUMMARY | ~2020-07-29 | XMS | Encounter Summary ---
Demographics + + + | Address | [address] | | | [place] [address] | + + + | Home Phone [...] + + + + + | Doreen Manely | ECON | [address] | | | | | [place] | | | | | [address] | | + + + + + Care Team Providers + +------+ + | Care Metal Bonder Name | Role | Phone | + +------+ + | Sharon David MD | PCP | | + +------+ + Encounter Details +--------+ + + + + | Date | Type | Department | Care Team | Description | +--------+ + + + + | 03/28/ | Pharmacy | [facility] | | | | 2020 | Visit | [address] | | | | | | [address] | | | | | | [place] [address] | | | | | | [phone] | | | +--------+ + + + [...] Rd | | | | | | [place], [place] | | | | | | [address] | | | | | | [phone] | | | | | | | | +--------+ + + + + | 09/27/ | Telephone-S | Liver Transplant | Vimal Crowe MD | | | 2019 | cheduled | | [address] | | | | | | [address], | | | | | | [place] [address] | | | | | | [phone] | | | | | | | [...] Rd | | | | | | [place] | | | | | | [address] | | | | | | [phone] | | | | | | | | +--------+ + + + + documented as of this encounter Visit Diagnoses Not on filedocumented in this encounter"
--- OUTSIDE RECORDS SUMMARY | ~2020-07-29 | XMS | Encounter Summary ---
Demographics + + + | Address | [address] | | | [place] [address] | + + + | Home Phone [...] [place] | | | | | [address] | | + + + + + Care Team Providers + +------+ + | Care Roofing Sales Representative Name | Role | Phone | + +------+ + | Sharon David MD | PCP | | + +------+ + Encounter Details +--------+ + + + + | Date | Type | Department | Care Team | Description | +--------+ + + + + | 05/20/ | Pharmacy | Outpatient Retail | | | | 2019 | Visit | [facility] | | | | | | [address] | | | | | | Loop [place], [place] | | | | | | [address] | | | | | | [phone] | | | +--------+ + + + [...] Rd | | | | | | [place], [place] | | | | | | [address] | | | | | | [phone] | | | | | | | | +--------+ + + + + | 09/27/ | Telephone-S | Liver Transplant | Vimal Crowe MD | | | 2019 | cheduled | | [address] | | | | | | [place], | | | | | | [place] [address] | | | | | | [phone] | | | | | | | [address] | | | | | | [place], [place] | | | | | | [address] | | | | | | [phone] | | | | | | | | +--------+ + + + + documented as of this encounter Visit Diagnoses Not on filedocumented in this encounter"
--- OUTSIDE RECORDS SUMMARY | ~2020-07-29 | XMS | Encounter Summary ---
Demographics + + + | Address | [address] | | | [place] [address] | + + + | Home Phone [...] [place] | | | | | [address] | | + + + + + Care Team Providers + +------+ + | Care Manager Agricultural Name | Role | Phone | + +------+ + | Sharon David MD | PCP | | + +------+ + Reason for Visit + +--------+ + | Reason | Onset | Comments | | | Date | | + +--------+ + | Dialysis - [facility] | 09/01/ | | | [facility] | 2019 | | + +--------+ + Encounter Details +--------+ + + + + | Date | Type | Department | Care Team | Description | +--------+ + + + + | 09/01/ | Documentati | Nephrology & | Angélica Chao, | Dialysis - [facility] | | 2019 | on | Hypertension at [facility] | [address] | [facility] | | | | [address] | [facility] | | | | | Loop Physician's | [place], [place] | | | | | [address], [facility] floor | [address] | | | | | [place], [place] | [phone] | | | | | [address] | | | | | | [phone] | | | +--------+ + + + [...] Telephone Encounter - Angélica Chao MD - 09/01/2019 3:58 PM PST Comprehensive Hemodialysis H&P Name of Patient: Steffen Duran Date of encounter: 09/01/19 Department Coordinator: Angélica Chao MD Dialysis [facility] Shift: TRS 2nd shift Current Treatment Order: Duration: 4 hours Dialyzer: Revaclear 300 K: 3 Ca: 2.5 Na: 138 HCO3: 32 Access: LIJ TD EDW: in flux/not yet determined ASSESSMENT AND PLAN: Mr. Duran is a 54 yo gentleman evaluated today on hemodialysis. Apparent allergic reaction during dialysis: as per exam and subj, below, pt developed what appeared to hives on bilat forearms (not on legs) within first 15-20 min today. He had only received heparin - no other meds. Per pt, no new meds at home today. Only two real options f or etiology are heparin and dialysis filter. He has had exposure to filter x2 in hospital (d oes not preclude reaction now) and he had exposure to heparin lock in hospital. Given labs appeared somewhat improved and K was reasonable at 4.4, opted to stop HD. He had la bs done today and will have labs done at [facility] am. If labs indicate he continues to nee d HD, then will dialyze with alternate filter (Nipro) and no heparin. HD staff were able to obtain citrate for packing catheter today (did not want to pack with heparin given concern for reaction and unit policy precludes packing with tpa). Adequacy Evaluated: Yes KT/V Adequate: Pending - will be done with next HD assuming he requires HD based on next la bs. Achieves Prescribed Frequency: Today is first outpt HD treatment Access Evaluated: Yes Blood Flow Adequate: Yes Anemia Evaluated: Yes Hemoglobin Within Target: No, 7.7 outpt yesterday. Recheck sent today and he has next labs for OLT on . Transferrin Saturation Within Target: Pending, but chart indicates hx of iron overload rela jeannette to transfusions (will eval labs to confirm) MARGAUX dose Adequate: Pending - did not receive yet at HD due to apparent allergic reaction (s ee above) Supplemental Iron Needed: Unknown - labs pending; following anemia/iron protocol Nutritional Status Evaluated: Yes Albumin Adequate: Pending but was slightly below goal in outpt labs on 08/31 (see below). E Lemonwise inc'd protein intake in diet Potassium Controlled: Potassium was 4.4 on labs 08/31. Cont 3K bath Blood pressure/Volume Status Evaluated: Yes. Single BP today with HD is reasonable. Will quintana ve to monitor over time to determine overall BP trend. Significant, diffuse peripheral edema , joaquin-wrapped. Per pt, edema present "for months." Anticipate improvement with HD +/- renal recovery. Bone and Mineral Metabolism Evaluated: Yes Phosphorus Controlled: Yes, 3.3 yesterday without a binder. Cont current diet. Ca X P Product Controlled: Yes, Ca yesterday 8.4. PTH in Target Range: Pending Transplant candidacy: n/a - hopeful he will have renal recovery [facility] Nephrology and Hypertension [id number] [place] [address] CC/Interval Hx: Patient evaluated on hemodialysis today. Dialysis run sheets and labs revkarma sat. Mr. Duran is new to me today. He was recently dc'd from [facility] post OLT, and during that admission he developed multifactorial KAR which required dialysis. He was discharged on kar protocol with creatinine mid 2's, BUN 70s, still hypervolemic (significant LE edema). He ar rived today for his first outpt dialysis. Unfortunately, ~15-20 minutes into his initial gale lysis, he developed a diffuse raised, pruritic rash on his forearms bilaterally. VS were sta ble, no dyspnea and no symptoms other than pruritis. HD was paused. On review, he was dialyz ing using revaclear 300 filter - he used that filter twice in hospital (first treatment was with F160). He also received heparin with HD today; he had been heparin locked intra-cathete r in hospital but had not received systemic heparin. ROS: Systems reviewed include constitutional, cardiovascular, GI, respiratory, , skin, ne uro, musculoskeletal and are negative unless otherwise noted above. Problem list/PMH: Reviewed 1. ESLD -2/2 etoh (presumed, post olt bx pending as of Aug 2019) -s/p OLT Aug 16, 2019 ([facility]) 2. KAR -multifactorial around time of OLT (hemodynamic/HRS, bactrim, tacrolimus) -HD initiated 08/22/19 for azotemia, hypervolemia 3. Malnutrition 4. SVT/Afib 5. Elevated CBGs 2/2 medications -on insulin post OLT Current Incenter and Pertinent Outpatient Medications: Reviewed Current Outpatient Medications Medication Sig acetaminophen 500 mg oral tablet Take 1 tablet by mouth every six hours as needed. Joceline cations: pain Alcohol Swabs (ALCOHOL PREP SWABS) topical pads, medicated Apply 1 each to affected are a five times daily. Use as directed. amiodarone 200 mg oral tablet Take 1 tablet by mouth once daily. Indications: Preventio n of Ventricular Fibrillation aspirin EC 325 mg oral tablet,delayed release (DR/EC) Take 1 tablet by mouth once daily . Blood Sugar Diagnostic (FREESTYLE LITE STRIPS) miscellaneous [...] once daily at bedtime. Indications: osteoporosis prevention Cholecalciferol (Vitamin D3) 2,000 unit oral tablet Take 1 tablet by mouth once daily. fluconazole 200 mg oral tablet Take 2 tablets by mouth every Saturday. Indications: funga l infection prevention insulin lispro (Human) 100 unit/mL subcutaneous insulin pen Inject 5 units under the sk in with breakfast, 10 units under the skin with lunch, 12 units under the skin with dinner. Max dose = 56 units per day Indications: type 2 diabetes mellitus Insulin [place] (Disposable) (COMFORT EZ PEN NEEDLES) 31 gauge x 5/16" miscellaneous (m isc) needle Use as directed for 5 insulin injections per day. insulin NPH 100 unit/mL (3 mL) subcutaneous insulin pen Inject 18 Units under the skin (SUBC) once daily in the morning AND 8 Units once daily in the evening. Indications: type 2 diabetes mellitus. lancets (FREESTYLE LANCETS) 28 gauge miscellaneous (misc) misc Test blood sugar four ti mes daily (before each meal and at bedtime). Indications: type 2 diabetes mellitus metoprolol succinate 25 mg oral tablet extended release 24 hr Take 0.5 tablets by mouth once daily. Indications: high blood pressure Miscellaneous Medical Supply miscellaneous (misc) misc Chlorhexidine prep sticks (small ) multivitamin oral tablet Take 1 tablet by mouth once daily. Indications: Treatment To P revent Vitamin Deficiency mycophenolate 250 mg oral capsule Take 4 capsules by mouth two times daily. Indications : liver transplant rejection prevention omeprazole 20 mg oral capsule,delayed release(DR/EC) Take 1 capsule by mouth once daily . Indications: heartburn oxyCODONE (immediate release) 5 mg oral tablet Take 0.5 tablets by mouth every six hour s as needed for breakthrough pain. predniSONE 5 mg oral tablet Take 4 tablets by mouth once daily. Indications: liver cox splant rejection prevention QUEtiapine (SEROQUEL) 25 mg oral tablet Take 0.5 tablets by mouth once daily at bedtime . senna-docusate (SENNA WITH DOCUSATE SODIUM) 8.6-50 mg oral tablet Take 1 tablet by mout h twice daily as needed. Indications: constipation tacrolimus 1 mg oral capsule Take 4 capsules by mouth two times daily. Indications: niels er transplant rejection prevention trimethoprim-sulfamethoxazole 80-400 mg oral tablet Take 1 tablet by mouth three times weekly (on Saturday, and Saturday). Please take after dialysis Indications: pneumoni a prevention valGANciclovir 450 mg oral tablet Take 1 tablet by mouth three times weekly (on Saturday , and Saturday). Please take after dialysis sessions Indications: viral infection p revention No current facility-administered medications for this visit. Allergies Allergen Reactions Doxycycline Hives and Rash Social history: Tobacco use: none/never EtOH: previous; none current IVDU: none Home: per pt, he had been living in [place] but he "doesn't have a house anymore." Mother and sister are his support people post OLT. FMH: Per pt, no fmh renal disease Physical Exam: BP: 143/77, HR: 74 BFR: 250 --> stopped due to reaction (see below) GA: awake, alert, nad Chest: Lungs are clear on auscultation bilaterally. No wheezing noted CV: Heart sounds have regular rate and rhythm. Ext: diffuse edema under joaquin wraps feet to knees bilat. Skin: erythematous macular, coalescing slightly raised lesions on both forearms (see pictur e below). Scattered ecchymoses also noted on forearms Access: [facility], accessed for dialysis, no erythema/signs of infection *Labs data reviewed.* documented in this e ncounter Plan of [...] Rd | | | | | | [place], [place] | | | | | | [address] | | | | | | [phone] | | | | | | | | +--------+ + + + + | 09/27/ | Telephone-S | Liver Transplant | Vimal Crowe MD | | | 2019 | cheduled | | [address] | | | | | | [address], | | | | | | [place] [address] | | | | | | [phone] | | | | | | | [...] Rd | | | | | | [place], [place] | | | | | | [address] | | | | | | [phone] | | | | | | | | +--------+ + + + + documented as of this encounter Visit Diagnoses Not on filedocumented in this encounter
--- OUTSIDE RECORDS SUMMARY | ~2020-07-29 | XMS | Encounter Summary ---
Demographics + + + | Address | [address] | | | [place] [address] | + + + | Home Phone [...] [place] | | | | | [address] | | + + + + + Care Team Providers + +------+ + | Care Plant Anatomist Name | Role | Phone | + +------+ + | Sharon David MD | PCP | | + +------+ + Encounter Details +--------+ + + + + | Date | Type | Department | Care Team | Description | +--------+ + + + + | 07/29/ | Pharmacy | [facility] | | | | 2020 | Visit | [address] | [address] | | | | | | [place] [address] | | | | | | [phone] | | | +--------+ + + + [...] Rd | | | | | | [place] | | | | | | [address] | | | | | | [phone] | | | | | | | | +--------+ + + + + | 09/27/ | Telephone-S | Liver Transplant | Vimal Crowe MD | | | 2019 | [place] | | [address] | | | | | | [facility] [place] [place], | | | | | | [place] [address] | | | | | | [phone] | | | | | | | [...] [place] | | | | | | [address] | | | | | | [phone] | | | | | | | | +--------+ + + + + documented as of this encounter Visit Diagnoses Not on filedocumented in this encounter"
--- OUTSIDE RECORDS SUMMARY | ~2020-07-29 | XMS | Encounter Summary ---
Demographics + + + | Address | [address] | | | [place] [address] | + + + | Home Phone [...] + + + | Author | [facility] | + + + | Organization | [facility] | + + + | [...] [place] | | | | | [address] | | + + + + + Care Team Providers + +------+ + | Care Jumpbasting Machine Operator Name | Role | Phone | + +------+ + | Sharon David MD | PCP | | + +------+ + Reason for Visit + + + | Reason | Comments | + + + | Follow-up visit | | + + + Encounter Details +--------+---------+ + + + | Date | Type | Department | Care Team | Description | +--------+---------+ + + + | 11/17/ | Office | Liver Transplant | Vimal Crowe MD | Status post liver | | 2020 | Visit | at [facility] [address] | [address] | transplant (HCC) | | | | [address] | [address] [place], | (Primary Dx); | | | | Physician's | [place] [address] | Neutropenia, | | | | Pavilion, 2nd floor | [phone] | unspecified type | | | | [place], [place] | | (HCC); | | | | [address] | | Immunosuppression | | | | [phone] | | (HCC); Anemia in | | | | | | other chronic | | | | | | diseases classified | | | | | | elsewhere; Iron | | | | | | disorder | +--------+---------+ + + + Social History [...] + + + | Blood Pressure | 149/79 | 11/17/2019 11:13 AM | | | | | PST | | + + + + + | Pulse | 64 | 11/17/2019 11:13 AM | | | | | PST | | + + + + + | Temperature | 36.6 C (97.9 F) | 11/17/2019 11:13 AM | | | | | PST | | + + + + + | Respiratory Rate | 14 | 11/17/2019 11:13 AM | | | | | PST | | + + + + + | Oxygen Saturation | 100% | 11/17/2019 11:13 AM | | | | | PST | | + + + + + | Inhaled Oxygen | - | - | | | Concentration | | | | + + + + + | Weight | 91.2 kg (201 lb) | 11/17/2019 11:13 AM | | | | | PST | | + + + + + | Height | 180.3 cm (5' 11") | 11/17/2019 11:13 AM | pt reported | | | | PST | | + + + + + | Body Mass Index | 28.03 | 11/17/2019 11:13 AM | | | [...] of this encounter Patient Instructions Patient Instructions Vimal Crowe MD - 11/17/2019 11:00 AM PST1. Weekly labs tests for n ow 2. Continue tacrolimus at 4 mg twice a day and fludocortisone 3. Should be done with atavoquone and valganciclovir 4. Continue to follow up with cardiology, hematology and nephrology as outpatient 5. Neupogen being determined RTC scheduled for January 2020 documented in this encounter Progress Notes Vimal Crowe MD - 11/17/2019 11:00 AM PST Post liver transplant clinic follow-up visit Chief complaint: Liver transplant follow-up History of present illness: Steffen Duran is a 54 year old male who underwent a liver transplant foralcohol ci rrhosison 08/16/2019. He is making his 3-month post transplant switch from transplant surgery to transplant hepat ology. 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 His last run ofHD on 09/01. He was then admitted from 10/12-10/27 for failure to thrive, SVT, and KAR. Since then stat es doing well. He denies any jaundice, increasing abdominal girth or leg edema, confusion o r any GI bleeding. States has been doing well from a mood standpoint being off of prednison e and adjustment in medication. He is planning on leaving for [facility] on . He request for his labs to be done at [facility] in [place]. He will be reestablishing care with his PCP Dr. David [phone] ([facility]) Past medical history Post-Transplant Dx 1. History of alcoholic cirrhosis 2. Liver transplant- Date 08/16/2019 - Immunosuppression regimen-tacrolimus 4 mg twice daily trough goals of 6-8, MMF has been h eld secondary to significant cytopenia and prednisone stopped due to neuro side effect - Complications-renal dysfunction requiring dialysis - Liver biopsy: Allograft biopsy 08/16/2019 at time of transplant: Liver with minimal less than 1% macroves icular steatosis, no evidence of fibrosis - Prophylaxis-CMV donor negative/recipient positive 3. Secondary Dx - Renal insufficiency 4. Social history Moving to [place]. Denies any current alcohol smoking or recreational drug use PAST SURGICAL HISTORY: OLT 08/16/2019 as above 20 years R leg fx FAMILY HISTORY: no liver disease Current Outpatient Medications Medication Sig Alcohol Swabs [...] LITE STRIPS) miscellaneous (misc) strip Use 1 st rip to check blood sugar two [...] your PCP. Indications: type 2 diabetes mellitus Insulin [place] (Disposable) (COMFORT EZ PEN NEEDLES) 31 gauge [...] medications for this visit. Physical: VITALS: BP 149/79 (BP Location: Left upper arm, Patient Position: Sitting) | Pulse 64 | T emp 36.6 C (97.9 F) (Oral) | Resp 14 | Ht 1.803 m (5' 11") Comment: pt reported | Wt 9 1.2 kg (201 lb) | SpO2 100% | BMI 28.03 kg/m | BSA 2.14 m GENERAL: Alert, no acute distress, well kempt. HEENT: no scleral icterus NECK: no lymphadenopathy CV: regular rate and rhythm, no murmurs RESP: normal work of breathing on room air, clear ABD: soft, non-tender, well healed incision Ext: mild edema in his feet Neuro: oriented, normal mood, Labs: Chemistries: Last 72 Hours (or 3 results): Recent Labs 11/02/19 1010 NA 141 K 4.6 CL 109* BICARB 29 BUN 23* CR 1.46* CA 8.9 MG 1.7 PO4 4.6 AST 15 ALT 22 TBILI 0.3 AP 56 ALB 3.4* TP 6.1* CBC with diff last 72 hours (or 3 results) Recent Labs 11/02/19 1010 WBC 2.56* HB 9.7* HCT 31.7* PLT 77* NEUTROPERC 57.8 LYMPHPERC 22.7 MONOPERC 10.5* BASOPERC 1.6 EOSPERC 6.6* Lab Results Component Value Date FK506 pend 11/23/2019 Assessment: Steffen Duran is a 54 year old male who underwent a liver transplant foralcohol ci rrhosison 08/16/2019. He is making his 3-month post transplant switch from transplant surgery to transplant hepat ology. #Status post OLT 08/16/2019 for alcoholic cirrhosis :His post operative course wascompl icated byrenal dysfunctionrequiring dialysis,andvolume overload. He was then admitt ed from 10/12-10/27 for failure to thrive, SVT, and KAR. Since then states doing well. #Leukopenia: Should be done with his 3-month Valcyte and currently MMF being held. Neupoge n ordered and continue with weekly labs. 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 Recommend follow-up with local hematology. Summary of recommendations 1. Weekly labs tests for now 2. Continue tacrolimus at 4 mg twice a day and fludocortisone. Depending on labs/leukopeni a resolution will have to reassess restarting MMF. 3. Should be done with atavoquone and valganciclovir 4. Continue to follow up with cardiology, hematology and nephrology as outpatient 5. Neupogen being determined RTC scheduled for January 2020 Thank you for allowing me to participate in the care of Mr. Duran. Please call with any qu estions. Sincerely, Vimal Crowe MD Customer Service Sales Consultantforensic nurse [facility] Hepatology documented in this enc ounter Plan of [...] Rd | | | | | | [place], [place] | | | | | | [address] | | | | | | [phone] | | | | | | | | +--------+ + + + + | 09/27/ | Telephone-S | Liver Transplant | Vimal Crowe MD | | | 2019 | cheduled | | [address] | | | | | | [address], | | | | | | [place] [address] | | | | | | [phone] | | | | | | | [...] Rd | | | | | | [place], [place] | | | | | | [address] | | | | | | [phone] | | | | | | | | +--------+ + + + + documented as of this encounter Visit Diagnoses + + | Diagnosis | + + | Status post liver transplant (HCC) - Primary Liver replaced by transplant | + + | Neutropenia, unspecified type (HCC) | + + | Immunosuppression (HCC) Unspecified disorder of immune mechanism | + + | Anemia in other chronic diseases classified elsewhere | + + | Iron disorder Other disorders of iron metabolism | + + documented in this encounter
--- OUTSIDE RECORDS SUMMARY | ~2020-07-29 | XMS | Encounter Summary ---
Demographics + + + | Address | [address] | | | [place] [address] | + + + | Home Phone [...] [place] | | | | | [address] | | + + + + + Care Team Providers + +------+ + | Care Communications Project Lead Name | Role | Phone | + +------+ + | Sharon David MD | PCP | | + +------+ + Encounter Details +--------+ + + + + | Date | Type | Department | Care Team | Description | +--------+ + + + + | 02/25/ | Pharmacy | Outpatient Retail | | | | 2019 | Visit | [facility] | | | | | | [address] | | | | | | [address] [place], [place] | | | | | | [address] | | | | | | [phone] | | | +--------+ + + + [...] | | 2019 | [place] | | [address] | | | | | | [address] | | | | | | [place], [place] | | | | | | [address] | | | | | | [phone] | | | | | | | | +--------+ + + + + | 09/27/ | Telephone-S | Liver Transplant | Vimal Crowe MD | | 2019 | [place] | | [address] | | | | | | [place] [address] [place] [address], | | | | | | [place] [address] | | | | | | [phone] | | | | | | | [...] [address] | | | | | | [place] | | | | | | [address] | | | | | | [phone] | | | | | | | | +--------+ + + + + documented as of this encounter Visit Diagnoses Not on filedocumented in this encounter"
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
--- OUTSIDE RECORDS SUMMARY | ~2020-07-29 | XMS | Encounter Summary ---
Demographics + + + | Address | [address] | | | [place] [address] | + + + | Home Phone [...] [place] | | | | | [address] | | + + + + + Care Team Providers + +------+ + | Care Cutter In Name | Role | Phone | + +------+ + | Sharon David MD | PCP | | + +------+ + Encounter Details +--------+--------+ + + + | Date | Type | Department | Care Team | Description | +--------+--------+ + + + | 09/11/ | Travel | | | | | [...] [address] | | | | | | [place], [place] | | | | | | [address] | | | | | | [phone] | | | | | | | | +--------+ + + + + | 09/27/ | Telephone-S | Liver Transplant | Vimal Crowe MD | | | 2019 | [place] | | [address] | | | | | | [address], | | | | | | [place] [address] | | | | | | [phone] | | | | | | | [...] [place] | | | | | | [address] | | | | | | [phone] | | | | | | | | +--------+ + + + + documented as of this encounter Visit Diagnoses Not on filedocumented in this encounter"
--- OUTSIDE RECORDS SUMMARY | ~2020-07-29 | XMS | Encounter Summary ---
Demographics + + + | Address | [address] | | | [place] [address] | + + + | Home Phone [...] [place] | | | | | [address] | | + + + + + Care Team Providers + +------+ + | Care Recreational Counselor Name | Role | Phone | [...] [address] | | | | | | [place], [place] | | | | | | [address] | | | | | | [phone] | | | +--------+------+ + + + [...] Rd | | | | | | [place], [place] | | | | | | [address] | | | | | | [phone] | | | | | | | | +--------+ + + + + | 09/27/ | Telephone-S | Liver Transplant | Vimal Crowe MD | | | 2019 | [place] | | [address] | | | | | | [address], | | | | | | [place] [address] | | | | | | [phone] | | | | | | | | +--------+ + + + + | 10/03/ | Appointment | Cardiology | | | | 2019 | | | | | +--------+ + + + + | 10/03/ | Office | Cardiology | Cyril Samuel | | | 2019 | Visit | | MD Patricia [address] [facility] | | | | | | [address] | | | | | | [place], [place] | | | | | | [address] | | | | | | [phone] | | | | | | | [...] LABORATORY | [address] | [place] [address] | | | [facility] | | | | | [...] | + + + + + | [facility] | [address] | [place] [address] | | | SERVICES, CORE | MOISES [...] + + | [facility] | [address] | [place] [address] | | | SERVICES, CORE | PARK [...] | [facility] | [address] | [place] [address] | | | SERVICES, CORE | MOISES [...] | | | LABORATORY | | | [employer] | | | SERVICES, | | | [...] MDRD equation recommended by the National | [facility] | | Kidney Disease Education Program. [...] | + + + + + | [facility] | [address] | [place] [address] | | | [facility] | | | | | HEALTH + HEALING | | | | + + + + + documented in this encounter Visit Diagnoses + + | Diagnosis | + + | Abnormal echocardiogram Nonspecific (abnormal) findings on radiological and other | | examination of other intrathoracic organs | + + documented in this encounter"
--- OUTSIDE RECORDS SUMMARY | ~2020-07-29 | XMS | Encounter Summary ---
Demographics + + + | Address | [address] | | | [place] [address] | + + + | Home Phone [...] [place] | | | | | [address] | | + + + + + Care Team Providers + +------+ + | Care Inclusion Manager Name | Role | Phone | + +------+ + | Sharon David MD | PCP | | + +------+ + Encounter Details +--------+--------+ + + + | Date | Type | Department | Care Team | Description | +--------+--------+ + + + | 09/28/ | Travel | | | | | [...] Rd | | | | | | [place], [place] | | | | | | [address] | | | | | | [phone] | | | | | | | | +--------+ + + + + | 09/27/ | Telephone-S | Liver Transplant | Vimal Crowe MD | | | 2019 | [place] | | [address] | | | | | | [address], | | | | | | [place] [address] | | | | | | [phone] | | | | | | | [...] [place] | | | | | | [address] | | | | | | [phone] | | | | | | | | +--------+ + + + + documented as of this encounter Visit Diagnoses Not on filedocumented in this encounter"
--- OUTSIDE RECORDS SUMMARY | ~2020-07-29 | XMS | Encounter Summary ---
Demographics + + + | Address | [address] | | | [place] [address] | + + + | Home Phone [...] [place] | | | | | [address] | | + + + + + Care Team Providers + +------+ + | Care Concrete Bucket Hooker Name | Role | Phone | + +------+ + | Sharon David MD | PCP | | + +------+ + Reason for Referral Physical Therapy (Routine) +--------+--------+ + + + + | Status | Reason | Specialty | Diagnoses / | Referred By | Referred To | | | | | Procedures | Contact | Contact | +--------+--------+ + + + + | Closed | | Physical | Diagnoses | [facility] | | | | Therapy | Alcoholic | Dialysis | [address] | | | | | cirrhosis of | [address] [facility] | [facility] | | | | | liver with | [facility] | for Health | | | | | ascites | Rd | and Healing, | | | | | (HCC) | [place], [place] | Building [address], | | | | | Procedures | [address] | 1st Floor | | | | | PHYSICAL | Phone: | [place], [place] | | | | | THERAPY | [phone] | [address] | | | | | REFERRAL | | Phone: | | | | | | | [phone] | | | | | | | Fax: | | | | | | | [phone] | +--------+--------+ + + + + Reason for Visit AUTH/CERT +--------+--------+ + + + + | [...] | +--------+ + + + + | 07/17/ | Hospital | [facility] [address] | [place], | | | 2019 - | Encounter | [address] | MD Madeleine [address] | | | | | 12/S31 [facility] [address] | | | 08/29/ | | [facility] [place], | Rd [place], [place] | | | 2018 | | [place] [address] | [address] | | | | | [phone] | [phone] | | | | | | | | | | | | Porsche Jackson MD | | | | | | [address] | | | | | | [facility], | | | | | | [place] [address] | | | | | | [phone] | | | | | | | | | | | | Chriss Rice MD | | | | | | [address] | | | | | | [facility], | | | | | | [place] [address] | | | | | | [phone] | | | | | | | | | | | | Antione Talbot MD [address] | | | | | | [address] | | | | | | [facility], [place] | | | | | | [address] | | | | | | [phone] | | | | | | | | | | | | Donell Cr MD | | | | | | [address] | | | | | | [address] [place], | | | | | | [place] [address] | | | | | | [phone] | | | | | | | | | | | | Des Gamez, | | | | | | MD [address] | | | | | | [facility] | | | | | | [facility], [place] | | | | | | [address] | | | | | | [phone] | | | | | | | | | | | | Rex So MD | | | | | | [address] | | | | | | [address] [facility], | | | | | | [place] [address] | | | | | | [phone] | | | | | | | | | | | | Jackie Hernadez, | | | | | | MD [address] | | | | | | [facility] | | | | | | [place], [place] | | | | | | [address] | | | | | | [phone] | | | | | | | | | | | | Marsha Garcia MD | | | | | | [address] | | | | | | [address] [place], | | | | | | [place] [address] | | | | | | [phone] | | | | | | | [...] + + + | Blood Pressure | 123/60 | 08/29/2019 1:37 PM | | | | | PST | | + + + + + | Pulse | 89 | 08/29/2019 1:37 PM | | | | | PST | | + + + + + | Temperature | 36.2 C (97.2 F) | 08/29/2019 1:00 PM | | | | | PST | | + + + + + | Respiratory Rate | 17 | 08/29/2019 1:00 PM | | | | | PST | | + + + + + | Oxygen Saturation | 100% | 08/29/2019 1:37 PM | | | | | PST | | + + + + + | Inhaled Oxygen | - | - | | | Concentration | | | | + + + + + | Weight | 104.5 kg (230 lb 4.8 | 08/29/2019 5:48 AM | standing | | | oz) | PST | | + + + + + | Height | 180.3 cm (5' 11") | 08/19/2019 12:18 AM | | | | | PDT | | + + + + + | Body Mass Index | 32.12 | 08/19/2019 12:18 AM | | | | | PDT [...] + + documented as of this encounter Discharge Summaries Kathy Eldridge MD,MPH - 08/24/2019 8:01 AM PSTFormatting of this note might be differen t from the original. Hepatobiliary/Abdominal Transplant Surgery Discharge Summary Admission Date: 07/17/2019 Date of Transplant: 08/16/2019 ABO: A Cold Ischemia Time: 7 hours 42 minutes CMV: D-/R+ Toxoplasmosis: D+/R- EBV Ig DCD donor: No PHS increased risk: Yes Discharge Date: 08/29/2019 Attending Physician: Marsha Garcia MD Admission Principal Diagnosis: 1. End stage liver disease Additional Diagnoses: 2. Alcohol cirrhosis 3. Hepatic encephalopathy 4. Hepatorenal syndrome 5. Ascites 6. Severe protein calorie malnutrition 7. Functional debility 8. Spur cell anemia 9. Acute kidney injury 10. Super ventricular tachycardia 11. Hemochromatosis 12. Acute blood loss anemia 13. Steroid induced hyperglycemia 14. Steroid induced delirium 15. Hyperkalemia 16. Hyperuremia 17. Anasarca Procedures: 1. Orthotopic liver transplant 2. Time zero biopsy 3. Back bench liver preparation 4. Tunneled HD Line 08/2608/22/2019 1. Temporary HD catheter placement 2. Hemodyalysis Brief Hospital Course: The patient was admitted to [facility] on 07/17/2019 for failure to thrive at home in the setting of decompensated end stage liver disease. He remained in the hospital and was medic ally managed by Internal Medicine and Hepatology teams until a suitable transplant became av ailable. During the pre-transplant course was complicated by SVT requiring ICU transfer and amiodarone drip, severe malnutrition, hepatic encephalopathy, acute kidney injury/HRS, and s pur cell anemia. On 08/16/2019 the patient was taken to the operating room where he underwent orthotopic li charlie transplant. He tolerated the procedure well. Following the procedure, he was transferred to the STICU. He was closely monitored while he was weaned from the ventilator. The patient was extubated on 08/16. On 08/17 he was transferred to the general care floor. After extubation the patient was started on aggressive pulmonary toilet and educated on pro per use of incentive spirometry. Physical Therapy and Occupational Therapy were consulted po stoperatively. The Payton catheter was removed as per transplant protocol. SCDs were placed p ostoperatively and continued throughout the hospital stay. On 08/22 the patient had increasing uremia, hyperkalemia, and creatinine. Nephrology was con sulted and recommended hemodialysis. A temporary catheter was placed and the patient underwe nt a round of HD. On 08/26 he received a tunneled HD cath. He received HD while inpatient, th e last session of which occurred on 08/29/19. An outpatient HD chair has been set up for him. Postoperatively the patient was started on immunosuppression including Tacrolimus, Azathiop rine, and prednisone. These were adjusted daily based on transplant protocols. As per protoc ol, the patient was also started on Valcyte for CMV prophylaxis, Fluconazole for fungal prop hylaxis, and Bactrim for PCP prophylaxis. Throughout the hospitalization, pain was well managed with IV and oral pain medications. P rior to dismissal pain was controlled on oral pain medication alone. The patient's diet was advanced slowly as tolerated. At the time of discharge, he was tolerating a regular diet, a mbulating, performing ADLs, urinating on his own, and had return of bowel function. Medications: Medication List START taking these medications acetaminophen 500 mg Tab Commonly known as: TYLENOL Take 1 tablet by mouth every six hours as needed. Indications: pain Alcohol Swabs Padm Commonly known as: ALCOHOL PREP SWABS Apply 1 each to affected area five times daily. Use as directed. amiodarone 200 mg Tab Commonly known as: CORDARONE Take 1 tablet by mouth once daily. Indications: Prevention of Ventricular Fibrillation aspirin EC 325 mg Tbec Take 1 tablet by mouth once daily. Blood Sugar Diagnostic Strp Commonly known as: FREESTYLE LITE STRIPS Test blood sugar four times daily (before each meal and at bedtime). Use as directed. Indic ations: type 2 diabetes mellitus Blood-Glucose Meter Kit Commonly known as: FREESTYLE LITE METER Use as directed. Use as directed. calcium carbonate 500 mg elemental (1,250 mg total salt) Tab Take 2 tablets by mouth once daily at bedtime. Indications: osteoporosis prevention insulin lispro (Human) 100 unit/mL Inpn Commonly known as: HUMALOG PEN Inject 1-16 Units under the skin (SUBC) four times daily (before each meal and at bedtime). Max dose = 56 units per day Indications: type 2 diabetes mellitus Insulin Gordon (Disposable) 31 gauge x 5/16" Ndle Commonly known as: COMFORT EZ PEN NEEDLES Use as directed for 5 insulin injections per day. insulin NPH 100 unit/mL (3 mL) Inpn Commonly known as: HUMULIN N FLEXPEN Inject 17 Units under the skin (SUBC) once daily with breakfast AND 6 Units once daily at b edtime. Indications: type 2 diabetes mellitus. lancets 28 gauge Misc Commonly known as: FREESTYLE LANCETS Test blood sugar four times daily (before each meal and at bedtime). Indications: type 2 di abetes mellitus multivitamin Tab Take 1 tablet by mouth once daily. Indications: Treatment To Prevent Vitamin Deficiency mycophenolate 250 mg Cap Commonly known as: CELLCEPT Take 4 capsules by mouth two times daily. Indications: liver transplant rejection preventio n omeprazole 20 mg Cpdr Commonly known as: PRILOSEC Take 1 capsule by mouth once daily. Indications: heartburn predniSONE 5 mg Tab Commonly known as: DELTASONE Take 4 tablets by mouth once daily. Indications: liver transplant rejection prevention QUEtiapine 25 mg Tab Commonly known as: SEROquel Take 0.5 tablets by mouth once daily at bedtime. senna-docusate 8.6-50 mg Tab Commonly known as: SENNA WITH DOCUSATE SODIUM Take 1 tablet by mouth twice daily as needed. Indications: constipation tacrolimus 1 mg Cap Take 6 capsules by mouth two times daily. Indications: liver transplant rejection preventio n trimethoprim-sulfamethoxazole 80-400 mg Tab Commonly known as: BACTRIM, SEPTRA Take 1 tablet by mouth once daily. Indications: pneumonia prevention valGANciclovir 450 mg Tab Commonly known as: VALCYTE Take 1 tablet by mouth once daily. Indications: viral infection prevention CHANGE how you take these medications metoprolol succinate 25 mg Tb24 Commonly known as: TOPROL-XL Take 0.5 tablets by mouth once daily. Indications: high blood pressure What changed: medication strength how much to take STOP taking these medications deferiprone 500 mg Tab furosemide 20 mg Tab Commonly known as: LASIX lactulose 10 gram/15 mL Soln Commonly known as: ENULAC spironolactone 100 mg Tab Commonly known as: ALDACTONE Chemistries: Last 72 Hours (or 3 results) - Refreshable Recent Labs 08/27/1955608/28/1953508/28/19210508/29/1960008/29/19726 NA 135* -- 137 -- -- 135* -- K 4.6 -- 4.7 -- -- 4.9 -- CL 101 -- 103 -- -- 103 -- BICARB 27 -- 27 -- -- 26 -- BUN 76* -- 74* -- -- 69* -- CR 2.40* -- 2.47* -- -- 2.50* -- GLU 245* < > 240* < > 228* 201* 182* CA 8.7 -- 8.7 -- -- 8.8 -- MG 2.0 -- 1.8 -- -- 1.8 -- PO4 4.6 -- 4.4 -- -- 4.0 -- < > = values in this interval not displayed. Liver Tests: Last 72 hours (or 3 results) Recent Labs 08/27/1955608/28/1953508/29/19600 AST 14 7 9 ALT 40 33 32 TBILI 1.1 1.1 1.0 AP 47* 41* 46* ALB 3.8 3.7 3.8 TP 6.1* 5.8* 6.1* CBC with diff last 72 hours (or 3 results) - Refreshable Recent Labs 08/27/19556 08/28/19 0536 08/29/19 0601 WBC 4.52 5.11 5.99 HB 7.8* 7.6* 7.7* HCT 23.7* 23.0* 23.8* PLT 94* 110* 145* NEUTROPERC 73.5* 74.9* 75.4* LYMPHPERC 18.4 17.4* 16.5* MONOPERC 5.1 4.7 5.0 BASOPERC 0.4 0.6 0.7 EOSPERC 2.2 1.8 1.7 Lab Results Component Value Date FK506 6.0 08/28/2019 Medications: Medications reviewed, see MAR. Discharge Plan: Immunosuppression: Tacrolimus 6 mg po bid, continue Azathoprine, and continue Prednisone ta per as described. Date: Total Dose # Tablets, 5mg Hospital Discharge - 08/29/19 20 mg 4 08/30/19 - 09/05/19 15 mg 3 09/06/19 - 09/12/19 10 mg 2 09/13/19 - servicing rep dose 5 mg 1 Prophylaxis: Valcyte 450 mg po daily, Fluconazole 400mg every Saturday, MWF. Cardiology: continue 81 mg of ASA daily Renal: Biweekly labs Outpatient HD Endocrinology: - Continue NPH 17 units in the AM, and 6 units in PM - Continue Lispro sliding scale four times daily Diet: Regular diet with restrictions as per the transplant byproducts supervisor. Activity: Up and walking as tolerated. 10 pound lifting restriction for 2-3 months to preve nt hernias. Labs: MONDAYS: Will require a complete metabolic set, direct bilirubin, magnesium, phosphorus, CBC with di fferential, prealbumin, and a Tacrolimus trough level. The tacrolimus trough must be drawn 1 2 hours after the last dose. Tacrolimus is given twice a day and the trough level is drawn w ith the morning labs. Once the trough level is drawn you may give the morning dose of tacrol imus. Do not give morning dose of Tacrolimus prior to trough lab drawn. THURSDAYS: Will require a complete metabolic set, direct bilirubin, magnesium, phosphorus, CBC with di fferential, prealbumin, and a Tacrolimus trough level. The tacrolimus trough must be drawn 1 2 hours after the last dose. Tacrolimus is given twice a day and the trough level is drawn w ith the morning labs. Once the trough level is drawn you may give the morning dose of tacrol imus. Do not give morning dose of Tacrolimus prior to trough lab drawn Future Appointments Provider Department Dept Phone Center 09/04/2019 9:40 AM Ltx 3 Liver Transplant at [facility] [phone] Liver and [facility] 11/02/2019 4:10 PM Tyson Bellamy Hematology/Medical Oncology at [facility] Arrive at: 10th Floor Hematology/Medical Oncology [phone] HemOnc 11/17/2019 11:00 AM Dekey Y Lhewa Liver Transplant at [facility] 2nd Floor [phone] GASTROENT ERO 02/16/2020 11:20 AM Dekey Y Lhewa Liver Transplant at [facility] 2nd Floor [phone] GASTROENT ERO 08/16/2020 11:00 AM Dekey Y Lhe[place] Liver Transplant at [facility] 2nd Floor [phone] GASTROEN TERO Contact information: For any questions or concerns about Mr. michaud please call his/her transplant nurse coordinat or (Judie Mota or Cecille Brunner) at or ask for the transplant nurse coordina tor econometrics professor if after hours. For clinical questions you may call the nurse coordinator or Carola Ignacio PA-C or Nisreen Chakraborty PA-C at or at and ask for Clara Nielson in the liver transplant office. Authored By: Pattie Ignacio PA-C Abdominal Organ Transplant Surgery Sushila Eldridge MD,MPH Associated attestation - Marsha Garcia MD - 08/29/2019 11:40 AM PSTI saw and evaluated t he patient. I agree with the findings and the plan of care as documented in the resident s note. MARSHA GARCIA MD [facility] [address] [place] [phone] documented in this encounter Discharge Instructions Instructions Kathy Eldridge MD,MPH - 08/29/2019 11:17 AM PSTDischarge Plan: Please clean your incision twice daily with chlorhexidine swabs. Please wear an abdominal b puneet. Immunosuppression: Tacrolimus 6 mg po bid, continue mycophenolate, and continue Prednisone taper as described. Prophylaxis: Bactrim daily, valganciclovir 450 mg daily Osteoporosis: continue supplemental calcium with vitamin D Endocrinology: Continue NPH 17 units at breakfast and 6 units at bedtime with sliding scale lispro four times daily Diet: Regular diet with restrictions as per the transplant byproducts supervisor. Activity: Up and walking as tolerated. 10 pound lifting restriction for 2-3 months to preve nt hernias. Labs: Twice a week as per Nephrology recommendations. Amy Hong RN - 08/29/2019Patient Education Materials: Liver Transplant Post Op Infection [facility]: Directions for Giving a Single Dos e of Insulin [facility]: Directions for Giving a Mixed Dose of Insulin [facility]: High Blood Sugar (Hyperglycemia) [facility]: Low Blood Sugar (Hypoglycemia) [facility]: Safe Disposal of Medical Syringes Additional Instructions: Dialysis, labs and follow up appointments per Liver Transplant Co ordinator Please wear a mask at all times when on [facility] camp us Please call your Liver Pai Gow Manager for any concerns and/or questions regarding medications, labs, appointments and your post op re covery period. Discharge Nurse: Amy Arreguin RN Date: 08/29/2019 Discharge Time: 10:09 AM AttachmentsThe following attachments cannot be sent through Care Everywhere.Liver Transplan t: Post-op ([place]atorial [place])Post-op Infection ([place])[facility]: Directions for Giving a Single Dose of Insulin ([place])[facility]: Directions for Giving a Mixed Dose of Insulin ([place])[facility]: High Blo od Sugar (Hyperglycemia) ([place])[facility]: Low Blood Sugar (Hypoglycemia) ([place])[facility]: Safe D isposal of Medical Syringes ([place])documented in this encounter Medications at Time of Discharge [...] + + +---------+ + + | Insulin Gordon | Use as directed for | 150 [...] documented as of this encounter Progress Notes Terrell Shelby MD - 08/29/2019 12:40 PM PST Nephrology Consult Progress Note IDENTIFICATION: PATIENT NAME: Doug Lawson : 1965 DATE OF ADMISSION: 07/17/2019 DATE OF SERVICE: 08/29/2019 HOSPITAL DAY: 43 PCP: Sharon David MD REQUESTING PROVIDER: Madeleine Del Toro* REASON FOR CONSULTATION: f/u KAR IMPRESSION & RECOMMENDATIONS: Doug Lawson is a 54 y.o. male who underwent OLTx on 08/16/19, with course complica jeannette by KAR (multifactorial: hemodynamic, vasoconstriction from tacrolimus and TMP/SMX) and p ersistent renal insufficiency requiring MARKETING CAMPAIGN ANALYST. Seems to be showing signs of renal recovery, b ut still needs HD for clearance needs. Dialyzing today and will be discharging afterwards, with plans in place for outpatient HD. ASSESSMENT/PLAN: KAR superimposed on CKD III - access if tunneled dialysis catheter placed 08/26/19 -> HD today -> [facility] 09/01/19 -> continue forced diuresis with Lasix Anemia of CKD - multifactorial, recent surgery, AOCD, - iron stores replete - darbe 40 mcg qweekly started on 08/27/19 OLTx - immunosuppression (tacrolimus/MMF/pred) management per abdominal transplant surgery Terrell Shelby MD Transplant Nephrology Fellow SUBJECTIVE & INTERVAL EVENTS: no acute interval events. Very good urine output with forced diuresis All pertinent Past Medical/Surgical Histories were personally reviewed and updated as karon clark. REVIEW OF SYSTEMS: No dyspnea. Denies nausea or emesis. Appetite fine. Denies abdomen discomfort No fevers or chills. No cough. No lightheadedness. MEDICATIONS: Prior to Admission Medications Prescriptions deferiprone 500 mg oral tablet Sig: Take 4 tablets (2,000mg) by mouth three times daily. furosemide 20 mg oral tablet Sig: Take 2 tablets by mouth two times daily. lactulose 10 gram/15 mL oral solution Sig: Take 15 mL by mouth two times daily. metoprolol succinate 50 mg oral tablet extended release 24 hr Sig: Take 0.5 tablets by mouth once daily. spironolactone 100 mg oral tablet Sig: Take 1 tablet by mouth once daily. Facility-Administered Medications: None Current Facility-Administered Medications Medication Dose Route Frequency Last Rate amiodarone (CORDARONE) tablet 200 mg 200 mg oral DAILY aspirin tablet 325 mg 325 mg oral DAILY darbepoetin darius (ARANESP) injection 40 mcg 0.45 mcg/kg subcutaneous Q7D fluconazole (DIFLUCAN) tablet 400 mg 400 mg oral Once per day on Sat guar gum (BENEFIBER) oral powder 1 packet 1 packet oral DAILY insulin lispro (HUMALOG) injection 1-16 Units 1-16 Units subcutaneous TID W/MEALS insulin lispro (HUMALOG) injection 12 Units 12 Units subcutaneous QPM MEAL insulin lispro (HUMALOG) injection 5 Units 5 Units subcutaneous QAM MEAL insulin lispro (HUMALOG) injection 8 Units 8 Units subcutaneous QLUNCH insulin NPH (HUMULIN N) injection 18 Units 18 Units subcutaneous QAM insulin NPH (HUMULIN N) injection 8 Units 8 Units subcutaneous HS lidocaine (LIDODERM) 5 % patch 1 patch 1 patch transdermal Q24H lidocaine (LIDODERM) 5 % patch 1 patch 1 patch transdermal Q24H metoprolol tartrate (LOPRESSOR) tablet 6.25 mg 6.25 mg oral BID mycophenolate (CELLCEPT) capsule 1,000 mg 1,000 mg oral BID (MMF) omeprazole (PRILOSEC) capsule 20 mg 20 mg oral BEFORE BREAKFAST polyethylene glycol (MIRALAX) packet 17 g 17 g oral DAILY [START ON 08/31/2019] predniSONE (DELTASONE) tablet 15 mg 15 mg oral DAILY predniSONE (DELTASONE) tablet 20 mg 20 mg oral DAILY probiotic yogurt (MAGEN'S YOGURT) oral DAILY QUEtiapine (SEROQUEL) tablet 12.5 mg 12.5 mg oral HS senna-docusate (SENOKOT S) 8.6-50 mg 1 tablet 1 tablet oral BID tacrolimus capsule 4 mg 4 mg oral BID ( and ) tamsulosin (FLOMAX) capsule 0.4 mg 0.4 mg oral DAILY trimethoprim-sulfamethoxazole (BACTRIM, SEPTRA) 80-400 mg 1 tablet 1 tablet oral Once per day on Sat valGANciclovir (VALCYTE) tablet 450 mg 450 mg oral Once per day on Sat PRN Meds: Current Facility-Administered Medications Medication Dose Route Frequency Last Rate acetaminophen (TYLENOL) tablet 500 mg 500 mg oral Q6H PRN albumin human (BUMINATE, FLEXBUMIN) 5 % injection 25 g 25 g intravenous DAILY PRN bisacodyl (DULCOLAX) suppository 10 mg 10 mg rectal DAILY PRN dextrose 50 % in water IV 25 mL 25 mL intravenous PRN glucagon (GLUCAGEN) injection 1 mg 1 mg intramuscular PRN glucose chewable tablet 16 g 16 g oral PRN heparin 1,000 unit/mL injection 1-3 mL 1-3 mL Intracatheter 4B DIALYSIS PRN heparin 1,000 unit/mL injection 1-3 mL 1-3 mL Intracatheter 4B DIALYSIS PRN oxyCODONE (immediate release) (ROXICODONE) tablet 2.5-5 mg 2.5-5 mg oral Q4H PRN polyethylene glycol (MIRALAX) packet 34 g 34 g oral TID PRN QUEtiapine (SEROQUEL) tablet 25 mg 25 mg oral HS PRN sodium chloride 0.9 % (NS) IV infusion 100-200 mL intravenous 4B DIALYSIS PRN ALLERGIES: Allergies Allergen Reactions Doxycycline Hives and Rash PHYSICAL EXAM: BP 136/74 | Pulse 85 | Temp 36.5 C (97.7 F) (Temporal) | Resp 17 | Ht 1.803 m (5' 1 1") | Wt 104.5 kg (230 lb 4.8 oz) Comment: standing | SpO2 100% | BMI 32.12 kg/m | BSA 2.29 m Constitutional: NAD. Alert and cooperative. HEENT: NCAT, anicteric sclera, mucosa moist, oropharynx is clear. Respiratory: Clear to auscultation bilaterally, normal respiratory effort. CV: Regular rhythm, normal rate. S1 and S2 normal, no m/r/g. Pulses 2+ in all distal ext remities and carotid arteries, No JVD. GI: Incision healing, katiuska present. Soft, non-tender Extremities: Warm and well purfused, mild edema LE b/l. No cyanosis. Skin: Warm and dry. Neuro/MSK: No Tremor or asterixis. Dialysis Access: Tunneled catheter no erythema/signs of infection LABS/STUDIES: All blood, urine, radiographic, and other diagnostic test results noted below were personal ly reviewed. Recent Labs 08/27/19 0557 08/28/19 0536 08/29/19 0601 NA 135* 137 135* K 4.6 4.7 4.9 CL 101 103 103 BICARB 27 27 26 BUN 76* 74* 69* CR 2.40* 2.47* 2.50* AST 14 7 9 ALT 40 33 32 TBILI 1.1 1.1 1.0 AP 47* 41* 46* TP 6.1* 5.8* 6.1* Recent Labs 08/27/19 0557 08/28/19 0536 08/29/19 0601 CA 8.7 8.7 8.8 MG 2.0 1.8 1.8 PO4 4.6 4.4 4.0 ALB 3.8 3.7 3.8 Recent Labs 08/27/19 0557 08/28/19 0536 08/29/19 0601 WBC 4.52 5.11 5.99 HB 7.8* 7.6* 7.7* HCT 23.7* 23.0* 23.8* PLT 94* 110* 145* NEUTROPERC 73.5* 74.9* 75.4* LYMPHPERC 18.4 17.4* 16.5* MONOPERC 5.1 4.7 5.0 BASOPERC 0.4 0.6 0.7 EOSPERC 2.2 1.8 1.7 Recent Labs 03/19/19 1215 04/21/19 0839 07/07/19 08/15/19 1503 FERRITIN 4,329* 4,124* 4,434 3,007* IRON 207* 204* -- 346* Associated attestation - Shira Jernigan MD - 08/29/2019 6:58 PM PSTI personally interv iewed the patient, performed the pertinent parts of the physical examination and personally formulated the plan with the Dr. Shelby. I agree with his documentation and have documente d any additions or exceptions. Shira Jernigan NephrologySineaKathy MD,MPH - 08/29/2019 11:27 AM PSTFormatting of this note might b e different from the original. DEPARTMENT OF SURGERY Transplant Surgery Admission Date: 07/17/2019 ( LOS: 43 days ) Attending Provider: Marsha Garcia MD Interval History and Events: HD today sleeping comfortably this morning No acute events overnight Pain well controlled Urine 900 p24h Last Vitals: BP 117/66 | Pulse 80 | Temp 36.5 C (97.7 F) (Temporal) | Resp 17 | Ht 1.803 m (5' 11") | Wt 104.5 kg (230 lb 4.8 oz) Comment: standing | SpO2 100% | BMI 32.12 k g/m | BSA 2.29 m 24 Hour Vital Min/Max: Systolic (24hrs), Av , Min:116 , Max:165 Diastolic (24hrs), Av, Min:60, Max:88 Pulse Min: 75 Max: 88 Temp Min: 36.5 C (97.7 F) Max: 36.7 C (98.1 F) Resp Min: 15 Max: 17 SpO2 Min: 100 % Max: 100 % Intake/Output 08/27 701 - 08/28 0708/28 - 08/29 - 08/30 07 P.O. 1625 1330 240 I.V. 10 5 10 Total Intake 1635 1335 250 Urine (mL/kg/hr) 700 (0.3) 900 (0.4) Other 6 Total Output(mL/kg) 700 (6.6) 900 (8.6) 6 (0.1) Net +935 +435 +244 Urine 2 x 1 x Stool 1 x General: Alert and oriented, No acute distress, lying in bed, comfortable HENT: Normocephalic, atraumatic, oral mucosa is moist Eye: Extraocular movements are intact Respiratory: Respirations are non-labored on RA Cardiovascular: Well-perfused Gastrointestinal: Soft, non-tender, non-distended, incision is C/D/I with katiuska and mild stable ecchymosis Integumentary: Warm, Dry Neurologic: Alert, Oriented. Musculoskeletal: Normal range of motion, No deformity. Psychiatric: Cooperative. Data Recent Labs 08/27/19 0557 08/28/19 0536 08/28/19 2106 08/29/19 0601 08/29/19 0727 NA 135* -- 137 -- -- 135* -- K 4.6 -- 4.7 -- -- 4.9 -- CL 101 -- 103 -- -- 103 -- BICARB 27 -- 27 -- -- 26 -- BUN 76* -- 74* -- -- 69* -- CR 2.40* -- 2.47* -- -- 2.50* -- GLU 245* < > 240* < > 228* 201* 182* CA 8.7 -- 8.7 -- -- 8.8 -- PO4 4.6 -- 4.4 -- -- 4.0 -- < > = values in this interval not displayed. Recent Labs 08/27/19 0557 08/28/19 0536 08/29/19 0601 AST 14 7 9 ALT 40 33 32 TBILI 1.1 1.1 1.0 AP 47* 41* 46* ALB 3.8 3.7 3.8 TP 6.1* 5.8* 6.1* Recent Labs 08/27/19 0557 PREALB 22.4 Recent Labs 08/27/19 0557 08/28/19 0536 08/29/19 0601 AMYLASEPLAS 20* 14* 13* Recent Labs 08/27/19 0557 08/28/19 0536 08/29/19 0601 WBC 4.52 5.11 5.99 HB 7.8* 7.6* 7.7* HCT 23.7* 23.0* 23.8* PLT 94* 110* 145* NEUTROPERC 73.5* 74.9* 75.4* LYMPHPERC 18.4 17.4* 16.5* MONOPERC 5.1 4.7 5.0 BASOPERC 0.4 0.6 0.7 EOSPERC 2.2 1.8 1.7 Recent Labs 08/27/19 0557 08/28/19 0536 08/29/19 0601 INRPT 1.19 1.29* 1.27* Assessment and Plan: ASSESSMENT Doug Lawson is a 54 y.o. male with EtOH cirrhosis s/p OLTx on 08/16. He had a prol onged inpatient course prior to transplant; was deconditioned and malnourished. He continues to do well with appropriate graft function. Increasing his nutrition and conditioning. Requ ired HD Saturday, had a tunneled line placed 08/26, working towards an outpatient chair . Plan # OLTx OOB, JEANNETTE duenas [id number] Change incision dressing as needed; use binder - Immunosuppression. Continue MMF, tacro and prednisone taper. Will use PO MMF indefinitely (aza interacts w ith amiodarone) - Prophylaxis Valgan 450, renally dosed tmp/smx, fluconazole #KAR Tunneled line 08/27 HD outpatient set up by CM # h/o afib/flutter and wide complex tachycardia intraop Continue PO amiodarone Continue metop # T2DM: difficult to control NPH and ISS Endocrinology following # Insomnia Continue seroquel 25 mg QHS with additional dose as needed #Deconditioning PT/OT #Severe protein calorie malnutrition Diabetic diet with Na restriction + supplements Continue calorie counts # Dispo DC to home today Sushila Eldridge MD,MPH Abdominal Transplant Surgery Pager: [phone] Associated attestation - Marsha Garcia MD - 08/29/2019 11:40 AM PSTClinically well Good allograft function Improving renal function but dialysis today Home today [facility] dialysis t--sat I have personally managed patient immunosuppression tac/MMF/pred I saw and evaluated the patient. I agree with the findings and the plan of care as dominick machado in the resident s note. MARSHA GARCIA MD HEMODIALYSIS [address] [place] [address] Jory Us RN - 08/29/2019 9:15 AM PSTDaVita note (code 100): Hemodialysis serviece s provided from [id number]. Report received from Chacho Toure RN 899 Safety checklist performed. Timeout (ICEOAT?) performed. Consent confirmed, labs revie wed, orders verified, CVC accessed per protocol, flushes and aspirates easily, pt tolerated well, treatment initiated. 1300 Treatment complete, UF goal and time met, blood returned, patient tolerated well, CVC flushed and packed with heparin per protocol; access WDL, dialyzer minimal streaking. Patient education documented. Report reviewed with Duc Arreguin RN Liters processed (L). 78.1 Total fluid removed (mL) 1803 Total fluid given (mL) 500 Net fluid removed (mL) 1303 Dialyzer lot #: [id number] Dialyzer exp date: 2022-05-25 Tubing lot #: [id number] Tubing exp date #: 2022-05-20 Acid lot #: [id number] Acid exp date: 2021-06-23 Bicarb lot #: [id number] Bicarb exp date: [id number] signed by Jory Us RN at 08/29/2019 2:08 PM PSTNancy Alarcon RN - 08/28/2019 3:11 PM PSTFormatting of this note might be differe nt from the original. Case Management Services Arranged Dialysis New or Return? New Name: [facility] Address: [address] [place] [address] Nadiya [place], [place] Appointment Date: 09/01/2019 1210pm Return Schedule: Every Saturday, and Saturday, you need to arrive at the facility a t 12:10pm and run starts at 1240pm Comments: Dr. Chao with [facility] will be your fox raiser while on dialysis Amaris Fowler L BUILDING EQUIPMENT INSPECTOR - 08/28/2019 1:32 PM PSTPost- Transplant Social Work Inpatient Contact- Discharge visit Purpose of Visit: LEARNING ENGINEER met w/pt for transplant social work visit after transplant surgery on 08/16/2019. Pt r eceived a liver transplant. Pt s pre-tx psychosocial assessment was completed on 04/21/2019 Pt s Coping/Adjustment to Transplant Recovery: Pt was sitting up in his bedside chair watching TV and visiting with his mother and step-fa ther. Pt is very eager to discharge and is waiting on a HD chair to be arranged for him. He states he is frustrated it is taking so long, as he has not needed dialysis since Saturday. P t denied any needs or concerns at this time. Post-Hospital Support Plan: Pt plans to recover at an [facility] in [place] with the help of his mother and sister. Discharge Plan: No barriers to discharge identified from a psychosocial perspective, in tact recovery suppo rt plan. CM RN & MDT aware. Additional Concerns/Needs: None at this time. Conclusion & Follow-Up Plan: No further psychosocial needs identified at this time. SW will plan to follow up with patie nt and family post discharge at clinic appointments and as needed. Amaris Medina LCSW Clinical Transplant [facility] Pager: [phone] signed by Amaris Medina LCSW at 08/28/2019 1:33 PM PSTBar Pramod Lyn MD - 08/28/2019 9:36 AM PST Nephrology Inpatient Follow-up Note IDENTIFICATION: PATIENT NAME: Doug Lawson : 1965 DATE OF ADMISSION: 07/17/2019 DATE OF SERVICE: 08/28/2019 HOSPITAL DAY: 42 PCP: Sharon David MD REQUESTING PROVIDER: Marsha Garcia REASON FOR CONSULTATION: KAR on CKD IMPRESSION & RECOMMENDATIONS: Doug Lawson is a 54 y.o. malewith hx ofEtOH cirrhosisnows/p OLTx on 08/16. He had a prolonged inpatient course prior to transplantandwas deconditioned and malnour ished. Now doing much improved with appropriate graft functionpost-transplant.Was previo usly seen by nephrology for CKD management, and nephrology was re-consulted for KAR with hyp erkalemia in the setting of recent surgery, tacrolimus and bactrim administration.S/p HD o n 08/22. Held off on further HD on 08/23 and 08/24 and trialed lasix to see if patient would re spond - seemed to have good response on 08/23, but poor response on 08/24, so decision was mad e to dialyze the patient on 08/[address] tunneled dialysis catheter for likely lo nger term HD. Assessment/Plan: #Non-oliguric acute kidney injury, on CKD III Cause for KAR thought to be multifactorial - recent surgery, vasoconstriction from tacrolim us and bactrim administration. S/p HD on 08/22/19. - Hd chair available on 09/01/19, [facility] - UoP improving and electrolytes stable, favor holding HD again today, Plan for HD tomorrow and discharge with follow-up on Saturday with the HD unit. - s/p TDC 08/26 # anemia - multifactorial, recent surgery, AOCD, - iron stores replete - darbe 40 mcg qweekly started on 08/27/19 #Hyperkalemia, resolved Also thought to be multifactorial in the setting of recent KAR and Bactrim. Stable this AM at 4.7 #Hyperphosphatemia, resolved Patient with improved phos this AM at 4.4 -No need for sevelamer, continue low phos diet, continue to monitor Patient was seen and staffed with Dr. Roberts, who agrees with the assessment and plan. Pramod Black MD [id number] HPI/ REVIEW OF SYSTEMS: Interval Events: - UoP 700 cc and undocumented voids - No overnight events Subjective: Walking. Denies N/V, SOB. Feels well. Constitutional: negative Cardiovascular: negative Genitourinary: negative Respiratory: negative Integumentary: negative Endocrine: negative Ears/Nose/Throat: negative Gastrointestinal: negative Musculoskeletal: negative Neurological: negative Allergic/Immunologic: negative MEDICATIONS: Medications Prior to Admission Medication Sig Dispense Refill Last Dose [DISCONTINUED] deferiprone 500 mg oral tablet Take 4 tablets (2,000mg) by mouth three t imes daily. 360 tablet 3 [DISCONTINUED] furosemide 20 mg oral tablet Take 2 tablets by mouth two times daily. [DISCONTINUED] lactulose 10 gram/15 mL oral solution Take 15 mL by mouth two times mirtha y. 15 mL [DISCONTINUED] metoprolol succinate 50 mg oral tablet extended release 24 hr Take 0.5 t ablets by mouth once daily. 60 tablet 1 [DISCONTINUED] spironolactone 100 mg oral tablet Take 1 tablet by mouth once daily. Current Facility-Administered Medications Medication Dose Route Frequency Last Rate amiodarone (CORDARONE) tablet 200 mg 200 mg oral DAILY aspirin tablet 325 mg 325 mg oral DAILY darbepoetin darius (ARANESP) injection 40 mcg 0.45 mcg/kg subcutaneous Q7D fluconazole (DIFLUCAN) tablet 400 mg 400 mg oral Once per day on Sat guar gum (BENEFIBER) oral powder 1 packet 1 packet oral DAILY insulin lispro (HUMALOG) injection 1-16 Units 1-16 Units subcutaneous TID W/MEALS insulin lispro (HUMALOG) injection 10 Units 10 Units subcutaneous QPM MEAL insulin lispro (HUMALOG) injection 5 Units 5 Units subcutaneous QAM MEAL insulin lispro (HUMALOG) injection 8 Units 8 Units subcutaneous QLUNCH insulin NPH (HUMULIN N) injection 18 Units 18 Units subcutaneous QAM insulin NPH (HUMULIN N) injection 8 Units 8 Units subcutaneous HS lidocaine (LIDODERM) 5 % patch 1 patch 1 patch transdermal Q24H lidocaine (LIDODERM) 5 % patch 1 patch 1 patch transdermal Q24H metoprolol tartrate (LOPRESSOR) tablet 6.25 mg 6.25 mg oral BID mycophenolate (CELLCEPT) capsule 1,000 mg 1,000 mg oral BID (MMF) omeprazole (PRILOSEC) capsule 20 mg 20 mg oral BEFORE BREAKFAST polyethylene glycol (MIRALAX) packet 17 g 17 g oral DAILY [START ON 08/31/2019] predniSONE (DELTASONE) tablet 15 mg 15 mg oral DAILY predniSONE (DELTASONE) tablet 20 mg 20 mg oral DAILY probiotic yogurt (MAGEN'S YOGURT) oral DAILY QUEtiapine (SEROQUEL) tablet 12.5 mg 12.5 mg oral HS senna-docusate (SENOKOT S) 8.6-50 mg 1 tablet 1 tablet oral BID tacrolimus capsule 4 mg 4 mg oral BID ( and ) tamsulosin (FLOMAX) capsule 0.4 mg 0.4 mg oral DAILY trimethoprim-sulfamethoxazole (BACTRIM, SEPTRA) 80-400 mg 1 tablet 1 tablet oral Once per day on Sat valGANciclovir (VALCYTE) tablet 450 mg 450 mg oral Once per day on Sat Current Facility-Administered Medications Medication Dose Route Frequency Last Rate acetaminophen (TYLENOL) tablet 500 mg 500 mg oral Q6H PRN albumin human (BUMINATE, FLEXBUMIN) 5 % injection 25 g 25 g intravenous DAILY PRN bisacodyl (DULCOLAX) suppository 10 mg 10 mg rectal DAILY PRN dextrose 50 % in water IV 25 mL 25 mL intravenous PRN glucagon (GLUCAGEN) injection 1 mg 1 mg intramuscular PRN glucose chewable tablet 16 g 16 g oral PRN heparin 1,000 unit/mL injection 1-3 mL 1-3 mL Intracatheter 4B DIALYSIS PRN oxyCODONE (immediate release) (ROXICODONE) tablet 2.5-5 mg 2.5-5 mg oral Q4H PRN polyethylene glycol (MIRALAX) packet 34 g 34 g oral TID PRN QUEtiapine (SEROQUEL) tablet 25 mg 25 mg oral HS PRN Current Facility-Administered Medications Medication Dose Route Frequency Last Rate ALLERGIES: Allergies Allergen Reactions Doxycycline Hives and Rash PHYSICAL EXAM: Last Vitals: BP 135/81 (BP Location: Right upper arm, Patient Position: Sitting) | Pulse 8 6 | Temp 36.6 C (97.9 F) (Oral) | Resp 16 | Ht 1.803 m (5' 11") | Wt 105.6 kg (232 l b 12.9 oz) | SpO2 100% | BMI 32.47 kg/m | BSA 2.3 m Current FIO2 (%): 21 fraction of O2 (08/16/19 1329) O2 Delivery Device: None (room air) (08/28/19 0800) 24 Hour Vital Min/Max: Systolic (24hrs), Av , Min:129 , Max:159 Diastolic (24hrs), Av, Min:64, Max:82 Pulse Min: 79 Max: 88 Temp Min: 36.5 C (97.7 F) Max: 36.7 C (98.1 F) Resp Min: 16 Max: 18 SpO2 Min: 100 % Max: 100 % Intake/Output Summary (Last 24 hours) at 08/28/2019 0937 Last data filed at 08/28/2019 0745 Gross per 24 hour Intake 1875 ml Output 700 ml Net 1175 ml Constitutional: NAD, alert and cooperative, appears mildly jaundiced and older than stated age Up and walking. HEENT: NCAT, mucosa moist Neck: Supple, trachea midline. Respiratory: Clear to auscultation bilaterally, normal respiratory effort. CV: Regular rhythm, normal rate. S1 and S2 normal, no m/r/g. Pulses 2+ in all distal extre mities and carotid arteries, No JVD. GI: Soft, non-tender, non-distended Extremities: Warm and well perfused, edema, 2-3+ to thighs, although perhaps mildly improve d Skin: Warm and dry, scattered ecchymoses Neurologic / Musculoskeletal: Grossly non-focal. No Tremor or asterixis. Psychiatric: Normal mood and affect. LAB / STUDIES: All blood, urine, radiographic, and other diagnostic test results noted below were personal ly reviewed. Lab Results Component Value Date NA 137 08/28/2019 K 4.7 08/28/2019 CL 103 08/28/2019 BICARB 27 08/28/2019 BUN 74 08/28/2019 CR 2.47 08/28/2019 GLU 189 08/28/2019 CA 8.7 08/28/2019 Lab Results Component Value Date PO4 4.4 08/28/2019 Lab Results Component Value Date MG 1.8 08/28/2019 Lab Results Component Value Date WBC 5.11 08/28/2019 HB 7.6 08/28/2019 HCT 23.0 08/28/2019 PLT 110 08/28/2019 MCV 99.1 08/28/2019 RDW 64.5 08/28/2019 Lab Results Component Value Date URINECOLOR Yudy 08/15/2019 URAPPEARANCE Clear 08/15/2019 URINEPROTEIN Negative 05/20/2019 URINEPH 5.5 05/20/2019 URSPECGRAV 1.010 05/20/2019 URINEGLUCOSE Negative 05/20/2019 Lab Results Component Value Date URINEAMPPHOS None 08/15/2019 URINEBACTERI None 08/15/2019 URINECAOX None 08/15/2019 URINECAST 0 08/15/2019 URINEGRANCAS 0 08/15/2019 URINEHYALINE 0 08/15/2019 URINEMUCOUS None 08/15/2019 URINEEPITH Few 08/15/2019 URINEREDCELL 1 08/15/2019 URINESQEPI None 08/15/2019 URINEPO4 None 08/15/2019 URINEWBC <1 08/15/2019 URINEYEAST None 08/15/2019 Associated attestation - Hakan Roberts MD - 08/28/2019 4:33 PM PSTI personally interviewe d the patient, performed the pertinent parts of the physical examination and personally form ulated the plan with the fellow. I agree with the fellows documentation and have documented any additions or exceptions. HAKAN ROBERTS MD [facility] [id number] [place] [address] Nisreen Chakraborty PA-C - 08/28/2019 9:34 AM PSTFormatting of this note might be different fr om the original. DEPARTMENT OF SURGERY Transplant Surgery Admission Date: 07/17/2019 ( LOS: 42 days ) Attending Provider: Una Bazan MD Interval History and Events: No HD yesterday Urine - 1500cc in 24 hours + 2 immesurables Calorie counts - 87 g protein, 1538 kcals Insulin requirements increased Last Vitals: BP 135/81 (BP Location: Right upper arm, Patient Position: Sitting) | Pulse 8 6 | Temp 36.6 C (97.9 F) (Oral) | Resp 16 | Ht 1.803 m (5' 11") | Wt 105.6 kg (232 l b 12.9 oz) | SpO2 100% | BMI 32.47 kg/m | BSA 2.3 m 24 Hour Vital Min/Max: Systolic (24hrs), Av , Min:129 , Max:159 Diastolic (24hrs), Av, Min:64, Max:82 Pulse Min: 79 Max: 88 Temp Min: 36.5 C (97.7 F) Max: 36.7 C (98.1 F) Resp Min: 16 Max: 18 SpO2 Min: 100 % Max: 100 % Intake/Output 08/26 701 - 08/27 - 08/28 - 08/29 07 P.O. 1760 1625 480 I.V. 10 10 Total Intake 1770 1635 480 Urine (mL/kg/hr) 1050 (0.4) 700 (0.3) Ultrafiltrate Total Output(mL/kg) 1050 (9.9) 700 (6.6) Net +720 +935 +480 Urine 4 x 2 x Stool 3 x 1 x General: Alert, No acute distress, sitting in chair, comfortable appearing Respiratory: Respirations are non-labored Cardiovascular: Well-perfused, RRR Gastrointestinal: Soft, non-tender, non-distended incision healthy appearing with katiuska s cant old red blood coming through incision Neurologic: Alert, Oriented. Musculoskeletal: Normal range of motion. LE with wraps in place Psychiatric: Cooperative. Data Recent Labs 08/26/19 0612 08/27/19 0557 08/27/19 2248 08/28/19 0536 08/28/19 0745 NA 136 -- 135* -- -- 137 -- K 4.2 -- 4.6 -- -- 4.7 -- CL 104 -- 101 -- -- 103 -- BICARB 28 -- 27 -- -- 27 -- BUN 71* -- 76* -- -- 74* -- CR 2.30* -- 2.40* -- -- 2.47* -- GLU 221* < > 245* < > 285* 240* 189* CA 8.4* -- 8.7 -- -- 8.7 -- PO4 4.5 -- 4.6 -- -- 4.4 -- < > = values in this interval not displayed. Recent Labs 08/26/19 0612 08/27/19 0557 08/28/19 0536 AST 9 14 7 ALT 37 40 33 TBILI 1.1 1.1 1.1 AP 37* 47* 41* ALB 3.7 3.8 3.7 TP 5.9* 6.1* 5.8* Recent Labs 08/27/19 0557 PREALB 22.4 Recent Labs 08/26/19 0612 08/27/19 0557 08/28/19 0536 AMYLASEPLAS 18* 20* 14* Recent Labs 08/26/19 0612 08/27/19 0557 08/28/19 0536 WBC 4.58 4.52 5.11 HB 8.1* 7.8* 7.6* HCT 25.0* 23.7* 23.0* PLT 82* 94* 110* NEUTROPERC 69.0 73.5* 74.9* LYMPHPERC 19.4 18.4 17.4* MONOPERC 7.2 5.1 4.7 BASOPERC 0.4 0.4 0.6 EOSPERC 3.1* 2.2 1.8 Recent Labs 08/26/19 0612 08/27/19 0557 08/28/19 0536 INRPT 1.24* 1.19 1.29* Assessment and Plan: ASSESSMENT Doug Lawson is a 54 y.o. male with EtOH cirrhosis s/p OLTx on 08/16. He had a prol onged inpatient course prior to transplant; was deconditioned and malnourished. He continues to do well with appropriate graft function. Increasing his nutrition and conditioning. Requ ired HD Saturday, had a tunneled line placed 08/26, working towards an outpatient chair . Plan # OLTx OOB, JEANNETTE duenas Asa 325 Change incision dressing as needed; use binder. Likely old hematoma. - Immunosuppression. Continue MMF, tacro and prednisone taper. Will use PO MMF indefinitely (aza interacts wit h amiodarone) - Prophylaxis Valgan 450, renally dosed tmp/smx, fluconazole #KAR Tunneled line 08/27 Review HD needs daily # h/o afib/flutter and wide complex tachycardia intraop Continue PO amiodarone Continue metop # T2DM: difficult to control NPH and ISS Endocrinology following # Insomnia Continue seroquel 25 mg QHS with additional dose as needed #Deconditioning PT/OT #Severe protein calorie malnutrition Diabetic diet with Na restriction + supplements Continue calorie counts # Dispo Continue acute care. Home pending outpatient HD chair Nisreen Chakraborty PA-C Abdominal Organ Transplant Surgery [facility] maris Medina LCSW - 08/27/2019 12:40 PM PSTPost- Transplant Social Work Inpatient Contact- Discharge visi t Purpose of Visit: LEARNING ENGINEER met w/pt for transplant social work visit after transplant surgery on 08/16/2019. Pt r eceived a liver transplant. Pt s pre-tx psychosocial assessment was completed on 04/21/2019. Pt s Coping/Adjustment to Transplant Recovery: Pt was sitting up in his bedside chair. He reports to be feel really well and is hopeful he will be able to discharge today. His sister has found him an HD chair near where he will be staying in [place]. Pt shared his daughter just landed in [place] from [place] and he is lo oking forward to seeing her. He became tearful when talking and his children. Post-Hospital Support Plan: Pt plans to recover at an [facility] in [place] with the help of his mother and sister. Discharge Plan: No barriers to discharge identified from a psychosocial perspective, in tact recovery suppo rt plan. CM RN & MDT aware. Additional Concerns/Needs: None at this time. Conclusion & Follow-Up Plan: No further psychosocial needs identified at this time. SW will plan to follow up with patie nt and family post discharge at clinic appointments and as needed. Amaris Medina LCSW Clinical Transplant Float [facility] Pager: [phone] signed by Amaris Medina LCSW at 08/27/2019 12:49 PM PSTBar Pramod Lyn MD - 08/27/2019 9:59 AM PST Nephrology Inpatient Follow-up Note IDENTIFICATION: PATIENT NAME: Doug Lawson : 1965 DATE OF ADMISSION: 07/17/2019 DATE OF SERVICE: 08/28/2019 HOSPITAL DAY: 41 PCP: Sharon David MD REQUESTING PROVIDER: Marsha Garcia REASON FOR CONSULTATION: KAR on CKD IMPRESSION & RECOMMENDATIONS: Doug Lawson is a 54 y.o. malewith hx ofEtOH cirrhosisnows/p OLTx on 08/16. He had a prolonged inpatient course prior to transplantandwas deconditioned and malnour ished. Now doing much improved with appropriate graft functionpost-transplant.Was previo usly seen by nephrology for CKD management, and nephrology was re-consulted for KAR with hyp erkalemia in the setting of recent surgery, tacrolimus and bactrim administration.S/p HD o n 08/22. Held off on further HD on 08/23 and 08/24 and trialed lasix to see if patient would re spond - seemed to have good response on 08/23, but poor response on 08/24, so decision was mad e to dialyze the patient on 08/[address] tunneled dialysis catheter for likely lo nger term HD. Assessment/Plan: #Non-oliguric acute kidney injury, on CKD III Cause for KAR thought to be multifactorial - recent surgery, vasoconstriction from tacrolim us and bactrim administration. S/p HD on 08/22/19. - Still awaiting outpatient dialysis chair slot. - UoP improving and electrolytes stable, will hold HD today - s/p TDC 08/26 # anemia - multifactorial, recent surgery, AOCD, - iron stores replete - Will start darbe 40 mcg qweekly #Hyperkalemia, resolved Also thought to be multifactorial in the setting of recent KAR and Bactrim. Stable this AM at 4.6. #Hyperphosphatemia, resolved Patient with improved phos this AM at 4.6 -No need for sevelamer, continue low phos diet, continue to monitor Patient was seen and staffed with Dr. Roberts, who agrees with the assessment and plan. Pramod Black MD [id number] HPI/ REVIEW OF SYSTEMS: Interval Events: Left IJ Tunneled line yesterday - temp line removed UoP 1 L per chart Subjective: Patient states he is feeling good. Walking. Denies N/V, SOB. Constitutional: negative Cardiovascular: negative Genitourinary: negative Respiratory: negative Integumentary: negative Endocrine: negative Ears/Nose/Throat: negative Gastrointestinal: negative Musculoskeletal: negative Neurological: negative Allergic/Immunologic: negative MEDICATIONS: Medications Prior to Admission Medication Sig Dispense Refill Last Dose [DISCONTINUED] deferiprone 500 mg oral tablet Take 4 tablets (2,000mg) by mouth three t imes daily. 360 tablet 3 [DISCONTINUED] furosemide 20 mg oral tablet Take 2 tablets by mouth two times daily. [DISCONTINUED] lactulose 10 gram/15 mL oral solution Take 15 mL by mouth two times mirtha y. 15 mL [DISCONTINUED] metoprolol succinate 50 mg oral tablet extended release 24 hr Take 0.5 t ablets by mouth once daily. 60 tablet 1 [DISCONTINUED] spironolactone 100 mg oral tablet Take 1 tablet by mouth once daily. Current Facility-Administered Medications Medication Dose Route Frequency Last Rate amiodarone (CORDARONE) tablet 200 mg 200 mg oral DAILY aspirin tablet 325 mg 325 mg oral DAILY fluconazole (DIFLUCAN) tablet 400 mg 400 mg oral Once per day on Sat guar gum (BENEFIBER) oral powder 1 packet 1 packet oral DAILY insulin lispro (HUMALOG) injection 1-16 Units 1-16 Units subcutaneous TID W/MEALS insulin lispro (HUMALOG) injection 3 Units 3 Units subcutaneous QAM MEAL insulin lispro (HUMALOG) injection 5 Units 5 Units subcutaneous QLUNCH insulin lispro (HUMALOG) injection 9 Units 9 Units subcutaneous QPM MEAL insulin NPH (HUMULIN N) injection 17 Units 17 Units subcutaneous QAM insulin NPH (HUMULIN N) injection 7 Units 7 Units subcutaneous HS lidocaine (LIDODERM) 5 % patch 1 patch 1 patch transdermal Q24H lidocaine (LIDODERM) 5 % patch 1 patch 1 patch transdermal Q24H metoprolol tartrate (LOPRESSOR) tablet 6.25 mg 6.25 mg oral BID mycophenolate (CELLCEPT) capsule 1,000 mg 1,000 mg oral BID (MMF) omeprazole (PRILOSEC) capsule 20 mg 20 mg oral BEFORE BREAKFAST polyethylene glycol (MIRALAX) packet 17 g 17 g oral DAILY [START ON 08/31/2019] predniSONE (DELTASONE) tablet 15 mg 15 mg oral DAILY predniSONE (DELTASONE) tablet 20 mg 20 mg oral DAILY probiotic yogurt (MAGEN'S YOGURT) oral DAILY QUEtiapine (SEROQUEL) tablet 12.5 mg 12.5 mg oral HS senna-docusate (SENOKOT S) 8.6-50 mg 1 tablet 1 tablet oral BID tacrolimus capsule 4 mg 4 mg oral BID ( and ) tamsulosin (FLOMAX) capsule 0.4 mg 0.4 mg oral DAILY trimethoprim-sulfamethoxazole (BACTRIM, SEPTRA) 80-400 mg 1 tablet 1 tablet oral Once per day on Sat valGANciclovir (VALCYTE) tablet 450 mg 450 mg oral Once per day on Sat Current Facility-Administered Medications Medication Dose Route Frequency Last Rate acetaminophen (TYLENOL) tablet 500 mg 500 mg oral Q6H PRN albumin human (BUMINATE, FLEXBUMIN) 5 % injection 25 g 25 g intravenous DAILY PRN bisacodyl (DULCOLAX) suppository 10 mg 10 mg rectal DAILY PRN dextrose 50 % in water IV 25 mL 25 mL intravenous PRN glucagon (GLUCAGEN) injection 1 mg 1 mg intramuscular PRN glucose chewable tablet 16 g 16 g oral PRN heparin 1,000 unit/mL injection 1-3 mL 1-3 mL Intracatheter 4B DIALYSIS PRN oxyCODONE (immediate release) (ROXICODONE) tablet 2.5-5 mg 2.5-5 mg oral Q4H PRN polyethylene glycol (MIRALAX) packet 34 g 34 g oral TID PRN QUEtiapine (SEROQUEL) tablet 25 mg 25 mg oral HS PRN Current Facility-Administered Medications Medication Dose Route Frequency Last Rate ALLERGIES: Allergies Allergen Reactions Doxycycline Hives and Rash PHYSICAL EXAM: Last Vitals: BP 140/81 (BP Location: Right upper arm, Patient Position: Sitting) | Pulse 8 5 | Temp 36.7 C (98.1 F) (Oral) | Resp 16 | Ht 1.803 m (5' 11") | Wt 105.6 kg (232 l b 12.9 oz) | SpO2 100% | BMI 32.47 kg/m | BSA 2.3 m Current FIO2 (%): 21 fraction of O2 (08/16/19 1329) O2 Delivery Device: None (room air) (11/07/19 0800) 24 Hour Vital Min/Max: Systolic (24hrs), Av , Min:125 , Max:153 Diastolic (24hrs), Av, Min:62, Max:81 Pulse Min: 76 Max: 93 Temp Min: 36.4 C (97.5 F) Max: 36.8 C (98.2 F) Resp Min: 14 Max: 16 SpO2 Min: 99 % Max: 100 % Intake/Output Summary (Last 24 hours) at 08/27/2019 1000 Last data filed at 08/27/2019 0800 Gross per 24 hour Intake 2009 ml Output 1050 ml Net 960 ml Constitutional: NAD, alert and cooperative, appears mildly jaundiced and older than stated age Up and walking. HEENT: NCAT, mucosa moist Neck: Supple, trachea midline. Respiratory: Clear to auscultation bilaterally, normal respiratory effort. CV: Regular rhythm, normal rate. S1 and S2 normal, no m/r/g. Pulses 2+ in all distal extre mities and carotid arteries, No JVD. GI: Soft, non-tender, non-distended Extremities: Warm and well perfused, edema, 2-3+ to thighs, although perhaps mildly improve d Skin: Warm and dry, scattered ecchymoses Neurologic / Musculoskeletal: Grossly non-focal. No Tremor or asterixis. Psychiatric: Normal mood and affect. LAB / STUDIES: All blood, urine, radiographic, and other diagnostic test results noted below were personal ly reviewed. Lab Results Component Value Date NA 135 08/27/2019 K 4.6 08/27/2019 CL 101 08/27/2019 BICARB 27 08/27/2019 BUN 76 08/27/2019 CR 2.40 08/27/2019 GLU 186 08/27/2019 CA 8.7 08/27/2019 Lab Results Component Value Date PO4 4.6 08/27/2019 Lab Results Component Value Date MG 2.0 08/27/2019 Lab Results Component Value Date WBC 4.52 08/27/2019 HB 7.8 08/27/2019 HCT 23.7 08/27/2019 PLT 94 08/27/2019 MCV 98.8 08/27/2019 RDW 63.4 08/27/2019 Lab Results Component Value Date URINECOLOR Yudy 08/15/2019 URAPPEARANCE Clear 08/15/2019 URINEPROTEIN Negative 05/20/2019 URINEPH 5.5 05/20/2019 URSPECGRAV 1.010 05/20/2019 URINEGLUCOSE Negative 05/20/2019 Lab Results Component Value Date URINEAMPPHOS None 08/15/2019 URINEBACTERI None 08/15/2019 URINECAOX None 08/15/2019 URINECAST 0 08/15/2019 URINEGRANCAS 0 08/15/2019 URINEHYALINE 0 08/15/2019 URINEMUCOUS None 08/15/2019 URINEEPITH Few 08/15/2019 URINEREDCELL 1 08/15/2019 URINESQEPI None 08/15/2019 URINEPO4 None 08/15/2019 URINEWBC <1 08/15/2019 URINEYEAST None 08/15/2019 Associated attestation - Hakan Roberts MD - 08/28/2019 9:44 AM PSTI personally interviewe d the patient, performed the pertinent parts of the physical examination and personally form ulated the plan with the fellow on 08/27/19 I agree with the fellows documentation and have documented any additions or exceptions. HAKAN ROBERTS MD [facility] [id number] [place] [address] [phone] Nisreen Chakraborty PA-C - 08/27/2019 9:23 AM PSTFormatting of this note might be different fr om the original. DEPARTMENT OF SURGERY Transplant Surgery Admission Date: 07/17/2019 ( LOS: 41 days ) Attending Provider: Una Bazan MD Interval History and Events: Left IJ Tunneled line yesterday - temp line removed Plan for HD day Urine yesterday not recorded - 5x immeasurables Calorie counts - 65 g protein, 1238 kcals Last Vitals: BP 140/81 (BP Location: Right upper arm, Patient Position: Sitting) | Pulse 8 5 | Temp 36.7 C (98.1 F) (Oral) | Resp 16 | Ht 1.803 m (5' 11") | Wt 105.6 kg (232 l b 12.9 oz) | SpO2 100% | BMI 32.47 kg/m | BSA 2.3 m 24 Hour Vital Min/Max: Systolic (24hrs), Av , Min:125 , Max:153 Diastolic (24hrs), Av, Min:45, Max:81 Pulse Min: 76 Max: 93 Temp Min: 36.4 C (97.5 F) Max: 36.8 C (98.2 F) Resp Min: 14 Max: 16 SpO2 Min: 97 % Max: 100 % Intake/Output 08/25 701 - 08/26 - 08/27 - 08/28 700 P.O. 850 1760 240 I.V. 10 10 Total Intake 860 1770 240 Urine (mL/kg/hr) 675 (0.3) 1050 (0.4) Other Ultrafiltrate 1000 Total Output(mL/kg) 1675 (15.9) 1050 (9.9) Net -815 +720 +240 Urine 1 x 4 x Stool 1 x 3 x General: Alert, No acute distress, sitting in chair, comfortable appearing Respiratory: Respirations are non-labored Cardiovascular: Well-perfused, RRR Gastrointestinal: Soft, non-tender, non-distended incision healthy appearing with katiuska s cant old red blood coming through incision Neurologic: Alert, Oriented. Musculoskeletal: Normal range of motion. LE with wraps in place Psychiatric: Cooperative. Data Recent Labs 08/25/1963108/26/1961108/26/[id number]/27/[id number]/27/1915 NA 136 -- 136 -- -- 135* -- K 4.7 -- 4.2 -- -- 4.6 -- CL 106 -- 104 -- -- 101 -- BICARB 24 -- 28 -- -- 27 -- BUN 103* -- 71* -- -- 76* -- CR 2.61* -- 2.30* -- -- 2.40* -- GLU 238* < > 221* < > 199* 245* 186* CA 8.3* -- 8.4* -- -- 8.7 -- PO4 5.4* -- 4.5 -- -- 4.6 -- < > = values in this interval not displayed. Recent Labs 08/25/1963108/26/1961108/27/19556 AST 9 9 14 ALT 40 37 40 TBILI 1.0 1.1 1.1 AP 33* 37* 47* ALB 3.7 3.7 3.8 TP 5.6* 5.9* 6.1* Recent Labs 08/25/19 0632 08/26/19 0612 08/27/19 0557 AMYLASEPLAS 14* 18* 20* Recent Labs 08/25/19 0632 08/26/19 0612 08/27/19 0557 WBC 5.47 4.58 4.52 HB 8.2* 8.1* 7.8* HCT 24.5* 25.0* 23.7* PLT 67* 82* 94* NEUTROPERC 76.1* 69.0 73.5* LYMPHPERC 14.1* 19.4 18.4 MONOPERC 6.0 7.2 5.1 BASOPERC 0.2 0.4 0.4 EOSPERC 2.9 3.1* 2.2 Recent Labs 08/25/19 0115 08/25/19 0632 08/26/19 0608/27/19 0557 INRPT 1.41* 1.36* 1.24* 1.19 APTT 30.9 -- -- -- FIBRINOGEN 185 -- -- -- Assessment and Plan: ASSESSMENT Doug Lawson is a 54 y.o. male with EtOH cirrhosis s/p OLTx on 08/16. He had a prol onged inpatient course prior to transplant; was deconditioned and malnourished. He continues to do well with appropriate graft function. Increasing his nutrition and conditioning. Requ ired HD Saturday, had a tunneled line placed 08/26, working towards an outpatient chair . Plan # OLTx OOB, JEANNETTE duenas Asa 325 Change incision dressing as needed; use binder. Likely old hematoma. - Immunosuppression. Continue MMF, tacro and prednisone taper. Will use PO MMF indefinitely (aza interacts wit h amiodarone) - Prophylaxis Valgan 450, renally dosed tmp/smx, fluconazole #KAR Tunneled line 08/27 HD today # h/o afib/flutter and wide complex tachycardia intraop Continue PO amiodarone Continue metop # T2DM: difficult to control NPH and ISS Endocrinology following # Insomnia Continue seroquel 25 mg QHS with additional dose as needed #Deconditioning PT/OT #Severe protein calorie malnutrition Diabetic diet with Na restriction + supplements Continue calorie counts # Dispo Continue acute care. Home pending outpatient HD chair Nisreen Chakraborty PA-C Abdominal Organ Transplant Surgery [facility] [place] Kris Chavez MD - 08/26/2019 2:34 PM PSTHemodialysis Line Removal Procedure Note Patient was positioned upright, and his bandage and stitches were removed ensuring the cent ral line was free from any attachments to the skin. The patient was then placed in a trendel en[place] position and instructed to breathe in deeply and hum through his nose. As he was humm ing through his nose the line was removed easily without issue. The line was noted to be int act. Pressure was held over the wound for 5 minutes and noted to be hemostatic afterward. A dressing was placed with a tegaderm that can be removed later today or tomorrow. Patient maryjo erated the procedure well. There were not any complications. Kris Pantoja MD PGY 3 Kevin Nascimento MD - 08/26/2019 9:32 AM PSTINTERVENTIONAL RADIOLOGY BRIEF PROCEDURE NOTE DATE: 08/26/2019 9:32 AM PROCEDURE: Left IJ tunneled dialysis catheter placement (15.5 Fr, 27 cm) PRE-PROCEDURE DIAGNOSIS: Acute kidney injury POST-PROCEDURE DIAGNOSIS: Same IR ATTENDING: Harinder IR FELLOW: Rajesh ACCESS: Left IJ vein and chest MEDICATIONS: Fentanyl 150 mcg IV Versed 2 mg IV COMPLICATION(S): None immediate ESTIMATED BLOOD LOSS: 10 cc FINDINGS: 1. Successful image-guided placement of a left IJ tunneled dialysis catheter. PLAN: 1. Left IJ tunneled dialysis catheter ready for use. 2. Right IJ temporary catheter should be removed if no longer needed. Full dictated report forthcoming, which can be found under the imaging tab in Epic. Rich Mena MD Rich Merrill MD - 08/26/2019 9:32 AM PSTINTERVENTIONAL RADIOLOGY POST SEDATION NOTE Maximum level of sedation achieved during the procedure: 2 Moderately sedated, easily arous ed with light tactile stimulation Current level of sedation: 0 Awake and alert BP 132/45 | Pulse 86 | Temp 36.6 C (97.9 F) (Oral) | Resp 17 | Ht 1.803 m (5' 11") | Wt 105.6 kg (232 lb 12.9 oz) | SpO2 100% | BMI 32.47 kg/m | BSA 2.3 m Access site: Left IJ vein and chest The patient is recovered from moderate (conscious) sedation with an appropriate level of pa in control. Rich Mena MD amariFadia moore, DO - 08/26/2019 8:59 AM PST Nephrology Inpatient Follow-up Note IDENTIFICATION: PATIENT NAME: Doug Lawson : 1965 DATE OF ADMISSION: 07/17/2019 DATE OF SERVICE: 08/26/2019 HOSPITAL DAY: 40 PCP: Sharon David MD REQUESTING PROVIDER: Marsha Garcia REASON FOR CONSULTATION: KAR on CKD IMPRESSION & RECOMMENDATIONS: Doug Lawson is a 54 y.o. malewith hx ofEtOH cirrhosisnows/p OLTx on 08/16. He had a prolonged inpatient course prior to transplantandwas deconditioned and malnour ished. Now doing much improved with appropriate graft functionpost-transplant.Was previo usly seen by nephrology for CKD management, and nephrology was re-consulted for KAR with hyp erkalemia in the setting of recent surgery, tacrolimus and bactrim administration.S/p HD o n 08/22. Held off on further HD on 08/23 and 08/24 and trialed lasix to see if patient would re spond - seemed to have good response on 08/23, but poor response on 08/24, so decision was mad e to dialyze the patient on 08/[address] tunneled dialysis catheter for likely lo nger term HD. Assessment/Plan: #Non-oliguric acute kidney injury, on CKD III Cause for KAR thought to be multifactorial - recent surgery, vasoconstriction from tacrolim us and bactrim administration. S/p HD on 08/22/19. Held off on further HD on 08/23 an 08/24 in setting of stable labs and decided to move forward with a trial of lasix to see if patient w ould respond. Initially seemed to have good UOP response on 08/23 with IV lasix 60 mg, mark yanes on 08/24 received 2 doses of 60 mg IV lasix with only 800 mL of UOP total for 24 hours. Con cern that patient was becoming unresponsive to lasix and that additional, higher doses would not have made much of a difference in patients overall picture as he continues to be signif icantly net positive and volume overloaded on exam. Patient has also not yet had return of r enal function, and overall clinical trajectory for now looks like he is going to need furthe r HD at least in the short term. HD run 3 hours, on 08/25/19 with 1L removed. -Plan to place tunneled dialysis catheter per IR today -Case management working on finding patient outpatient bed #Hyperkalemia, resolved Also thought to be multifactorial in the setting of recent KAR and Bactrim. Stable this AM at 4.2. -HD as above #Hyperphosphatemia, resolved Patient with improved phos this AM at 4.5 -No need for sevelamer, continue low phos diet, continue to monitor Patient was seen and staffed with Dr. Roberts, who agrees with the assessment and plan. HPI/ REVIEW OF SYSTEMS: Interval Events: -HD run yesterday 08/25/19 for 3 hours, 1 L total removed, patient tolerated well -Bleeding from surgical sites seems to have resolved, hgb stable Subjective: Patient states he is feeling better every day. Was up and walking around today. Tunneled ca theter placement went well. Denies N/V, SOB. Constitutional: negative Cardiovascular: negative Genitourinary: negative Psychiatric: negative Hematologic/Lymphatic: negative Eyes: negative Respiratory: negative Integumentary: negative Endocrine: negative Ears/Nose/Throat: negative Gastrointestinal: negative Musculoskeletal: negative Neurological: negative Allergic/Immunologic: negative MEDICATIONS: Medications Prior to Admission Medication Sig Dispense Refill Last Dose [DISCONTINUED] deferiprone 500 mg oral tablet Take 4 tablets (2,000mg) by mouth three t imes daily. 360 tablet 3 [DISCONTINUED] furosemide 20 mg oral tablet Take 2 tablets by mouth two times daily. [DISCONTINUED] lactulose 10 gram/15 mL oral solution Take 15 mL by mouth two times mirtha y. 15 mL [DISCONTINUED] metoprolol succinate 50 mg oral tablet extended release 24 hr Take 0.5 t ablets by mouth once daily. 60 tablet 1 [DISCONTINUED] spironolactone 100 mg oral tablet Take 1 tablet by mouth once daily. Current Facility-Administered Medications Medication Dose Route Frequency Last Rate amiodarone (CORDARONE) tablet 200 mg 200 mg oral DAILY aspirin tablet 325 mg 325 mg oral DAILY fluconazole (DIFLUCAN) tablet 400 mg 400 mg oral Once per day on Sat guar gum (BENEFIBER) oral powder 1 packet 1 packet oral DAILY insulin lispro (HUMALOG) injection 1-16 Units 1-16 Units subcutaneous TID W/MEALS insulin lispro (HUMALOG) injection 3 Units 3 Units subcutaneous QAM MEAL insulin lispro (HUMALOG) injection 5 Units 5 Units subcutaneous QLUNCH insulin lispro (HUMALOG) injection 9 Units 9 Units subcutaneous QPM MEAL insulin NPH (HUMULIN N) injection 17 Units 17 Units subcutaneous QAM insulin NPH (HUMULIN N) injection 6 Units 6 Units subcutaneous HS lidocaine (LIDODERM) 5 % patch 1 patch 1 patch transdermal Q24H lidocaine (LIDODERM) 5 % patch 1 patch 1 patch transdermal Q24H metoprolol tartrate (LOPRESSOR) tablet 6.25 mg 6.25 mg oral BID mycophenolate (CELLCEPT) capsule 1,000 mg 1,000 mg oral BID (MMF) omeprazole (PRILOSEC) capsule 20 mg 20 mg oral BEFORE BREAKFAST polyethylene glycol (MIRALAX) packet 17 g 17 g oral DAILY predniSONE (DELTASONE) tablet 20 mg 20 mg oral DAILY probiotic kefir (MAGEN'S KEFIR) oral BID QUEtiapine (SEROQUEL) tablet 25 mg 25 mg oral HS senna-docusate (SENOKOT S) 8.6-50 mg 1 tablet 1 tablet oral BID tacrolimus capsule 4 mg 4 mg oral BID (08 and 18) tamsulosin (FLOMAX) capsule 0.4 mg 0.4 mg oral DAILY trimethoprim-sulfamethoxazole (BACTRIM, SEPTRA) 80-400 mg 1 tablet 1 tablet oral Once per day on Sat [START ON 08/27/2019] valGANciclovir (VALCYTE) tablet 450 mg 450 mg oral Once per day o n Tue Thelma Sat Current Facility-Administered Medications Medication Dose Route Frequency Last Rate acetaminophen (TYLENOL) tablet 500 mg 500 mg oral Q6H PRN albumin human (BUMINATE, FLEXBUMIN) 5 % injection 25 g 25 g intravenous DAILY PRN bisacodyl (DULCOLAX) suppository 10 mg 10 mg rectal DAILY PRN dextrose 50 % in water IV 25 mL 25 mL intravenous PRN fentaNYL (SUBLIMAZE) injection 25-100 mcg 25-100 mcg intravenous INTRAPROCEDURE PRN glucagon (GLUCAGEN) injection 1 mg 1 mg intramuscular PRN glucose chewable tablet 16 g 16 g oral PRN heparin 1,000 unit/mL injection 1-3 mL 1-3 mL Intracatheter 4B DIALYSIS PRN midazolam (PF) (VERSED) injection 1-5 mg 1-5 mg intravenous INTRAPROCEDURE PRN naloxone (NARCAN) injection intravenous INTRAPROCEDURE PRN oxyCODONE (immediate release) (ROXICODONE) tablet 2.5-5 mg 2.5-5 mg oral Q4H PRN polyethylene glycol (MIRALAX) packet 34 g 34 g oral TID PRN QUEtiapine (SEROQUEL) tablet 25 mg 25 mg oral HS PRN sodium chloride 0.9 % (NS) IV infusion 100-200 mL intravenous 4B DIALYSIS PRN Current Facility-Administered Medications Medication Dose Route Frequency Last Rate ALLERGIES: Allergies Allergen Reactions Doxycycline Hives and Rash PHYSICAL EXAM: Last Vitals: BP 144/70 | Pulse 78 | Temp 36.6 C (97.9 F) (Oral) | Resp 17 | Ht 1.80 3 m (5' 11") | Wt 105.6 kg (232 lb 12.9 oz) | SpO2 99% | BMI 32.47 kg/m | BSA 2.3 m Current FIO2 (%): 21 fraction of O2 (08/16/19 1329) O2 Delivery Device: None (room air ) (08/26/19 0830) 24 Hour Vital Min/Max: Systolic (24hrs), Av , Min:87 , Max:191 Diastolic (24hrs), Av, Min:46, Max:93 Pulse Min: 74 Max: 87 Temp Min: 36.6 C (97.9 F) Max: 36.8 C (98.2 F) Resp Min: 16 Max: 18 SpO2 Min: 98 % Max: 100 % Intake/Output Summary (Last 24 hours) at 08/26/2019 0859 Last data filed at 08/25/2019 2300 Gross per 24 hour Intake 620 ml Output 525 ml Net 95 ml Constitutional: NAD, alert and cooperative, appears mildly jaundiced and older than stated age Up and walking. HEENT: NCAT, mucosa moist Neck: Supple, trachea midline. Respiratory: Clear to auscultation bilaterally, normal respiratory effort. CV: Regular rhythm, normal rate. S1 and S2 normal, no m/r/g. Pulses 2+ in all distal extre mities and carotid arteries, No JVD. GI: Soft, non-tender, non-distended Extremities: Warm and well perfused, edema, 2-3+ to thighs, although perhaps mildly improve d Skin: Warm and dry, scattered ecchymoses Neurologic / Musculoskeletal: Grossly non-focal. No Tremor or asterixis. Psychiatric: Normal mood and affect. LAB / STUDIES: All blood, urine, radiographic, and other diagnostic test results noted below were personal ly reviewed. Lab Results Component Value Date NA 136 08/26/2019 K 4.2 08/26/2019 CL 104 08/26/2019 BICARB 28 08/26/2019 BUN 71 08/26/2019 CR 2.30 08/26/2019 GLU 200 08/26/2019 CA 8.4 08/26/2019 Lab Results Component Value Date PO4 4.5 08/26/2019 Lab Results Component Value Date MG 2.0 08/26/2019 Lab Results Component Value Date WBC 4.58 08/26/2019 HB 8.1 08/26/2019 HCT 25.0 08/26/2019 PLT 82 08/26/2019 MCV 99.2 08/26/2019 RDW 61.6 08/26/2019 Lab Results Component Value Date URINECOLOR Yudy 08/15/2019 URAPPEARANCE Clear 08/15/2019 URINEPROTEIN Negative 05/20/2019 URINEPH 5.5 05/20/2019 URSPECGRAV 1.010 05/20/2019 URINEGLUCOSE Negative 05/20/2019 Lab Results Component Value Date URINEAMPPHOS None 08/15/2019 URINEBACTERI None 08/15/2019 URINECAOX None 08/15/2019 URINECAST 0 08/15/2019 URINEGRANCAS 0 08/15/2019 URINEHYALINE 0 08/15/2019 URINEMUCOUS None 08/15/2019 URINEEPITH Few 08/15/2019 URINEREDCELL 1 08/15/2019 URINESQEPI None 08/15/2019 URINEPO4 None 08/15/2019 URINEWBC <1 08/15/2019 URINEYEAST None 08/15/2019 Associated attestation - Hakan Roberts MD - 08/27/2019 8:18 AM PSTI personally interviewe d the patient, performed the pertinent parts of the physical examination and personally form ulated the plan with the resident on 08/26/19. I agree with the residents documentation and have documented any additions or exceptions. HAKAN ROBERTS MD [facility] [id number] [place] [address] Nisreen Chakraborty PA-C - 08/26/2019 8:57 AM PSTFormatting of this note might be different fr om the original. DEPARTMENT OF SURGERY Transplant Surgery Admission Date: 07/17/2019 ( LOS: 40 days ) Attending Provider: Una Bazan MD Interval History and Events: NPO at midnight for tunneled HD line Calorie count 54 grams protein and 1085 calories Bun and Cr down - 975cc of urine Last Vitals: BP 144/70 | Pulse 78 | Temp 36.6 C (97.9 F) (Oral) | Resp 17 | Ht 1.80 3 m (5' 11") | Wt 105.6 kg (232 lb 12.9 oz) | SpO2 99% | BMI 32.47 kg/m | BSA 2.3 m 24 Hour Vital Min/Max: Systolic (24hrs), Av , Min:87 , Max:191 Diastolic (24hrs), Av, Min:46, Max:93 Pulse Min: 74 Max: 87 Temp Min: 36.6 C (97.9 F) Max: 36.8 C (98.2 F) Resp Min: 16 Max: 18 SpO2 Min: 98 % Max: 100 % Intake/Output 08/24 701 - 08/25 0708/25 - 08/26 0708/26 - 08/27 0700 P.O. 2701 850 I.V. 10 IV Piggyback Total Intake 2701 860 Urine (mL/kg/hr) 800 (0.3) 675 (0.3) Other 0 Total Output(mL/kg) 800 (7.6) 675 (6.4) Net +1901 +185 Urine 3 x 1 x Stool 1 x 1 x General: Alert, No acute distress, sitting in chair, comfortable appearing Respiratory: Respirations are non-labored Cardiovascular: Well-perfused Gastrointestinal: Soft, non-tender, non-distended incision healthy appearing with katiuska s cant old red blood coming through incision Neurologic: Alert, Oriented. Musculoskeletal: Normal range of motion. LE with wraps in place Psychiatric: Cooperative. Data Recent Labs 08/24/1955108/25/1963108/25/[id number]/26/1961108/26/19741 NA 137 -- 136 -- -- 136 -- K 4.8 -- 4.7 -- -- 4.2 -- CL 105 -- 106 -- -- 104 -- BICARB 26 -- 24 -- -- 28 -- BUN 99* -- 103* -- -- 71* -- CR 2.37* -- 2.61* -- -- 2.30* -- GLU 228* < > 238* < > 160* 221* 200* CA 8.5* -- 8.3* -- -- 8.4* -- PO4 6.1* -- 5.4* -- -- 4.5 -- < > = values in this interval not displayed. Recent Labs 08/24/1955108/25/1963108/26/19611 AST 11 9 9 ALT 45 40 37 TBILI 1.1 1.0 1.1 AP 34* 33* 37* ALB 4.4 3.7 3.7 TP 6.3* 5.6* 5.9* Recent Labs 08/24/19551 PREALB 24.5 Recent Labs 08/24/1955108/25/1963108/26/19611 AMYLASEPLAS 19* 14* 18* Recent Labs 11/04/19 0552 11/04/19 2323 11/05/19 0632 11/06/19 0612 WBC 4.47 5.54 5.47 4.58 HB 8.8* 8.3* 8.2* 8.1* HCT 27.0* 24.7* 24.5* 25.0* PLT 55* 60* 67* 82* NEUTROPERC 75.9* -- 76.1* 69.0 LYMPHPERC 13.4* -- 14.1* 19.4 MONOPERC 6.3 -- 6.0 7.2 BASOPERC 0.2 -- 0.2 0.4 EOSPERC 2.9 -- 2.9 3.1* Recent Labs 08/25/19 0115 08/25/19 0632 08/26/19 0612 INRPT 1.41* 1.36* 1.24* APTT 30.9 -- -- FIBRINOGEN 185 -- -- Assessment and Plan: ASSESSMENT Doug Lawson is a 54 y.o. male with EtOH cirrhosis s/p OLTx on 08/16. He had a prol onged inpatient course prior to transplant; was deconditioned and malnourished. He continues to do well with appropriate graft function. Increasing his nutrition and conditioning. Requ ired HD Saturday, getting a tunneled line today with IR. Plan # OLTx OOB, JEANNETTE duenas Asa 325 Change incision dressing as needed; use binder. Likely old hematoma. - Immunosuppression. Continue MMF, tacro and prednisone taper. Will use PO MMF indefinitely (aza interacts wit h amiodarone) - Prophylaxis Valgan 450, renally dosed tmp/smx, fluconazole #KAR Tunneled line today, no HD since Saturday # h/o afib/flutter and wide complex tachycardia intraop Continue PO amiodarone Continue metop # T2DM: difficult to control NPH and ISS Endocrinology following # Insomnia Continue seroquel 25 mg QHS with additional dose as needed #Deconditioning PT/OT #Severe protein calorie malnutrition Diabetic diet with Na restriction + supplements Continue calorie counts # Dispo Continue acute care. Home tomorrow or Saturday. Nisreen Chakraborty PA-C Abdominal Organ Transplant Surgery [facility] [place] Fadia Morales, DO - 1 10/25/2018 1:39 PM PST Nephrology Inpatient Follow-up Note IDENTIFICATION: PATIENT NAME: Doug Lawson : 1965 DATE OF ADMISSION: 07/17/2019 DATE OF SERVICE: 08/25/2019 HOSPITAL DAY: 39 PCP: Sharon David MD REQUESTING PROVIDER: Marsha Gacria MD REASON FOR CONSULTATION: KAR IMPRESSION & RECOMMENDATIONS: Doug Lawson is a 54 y.o. male with hx of EtOH cirrhosis now s/p OLTx on 08/16. He had a prolonged inpatient course prior to transplant and was deconditioned and malnourished. Now doing much improved with appropriate graft function post-transplant. Was previously see n by nephrology for CKD management, and nephrology was re-consulted for KRA with hyperkalemi a in the setting of recent surgery, tacrolimus and bactrim administration. S/p HD on 08/22. H eld off on further HD on 08/23 and 08/24 and trialed lasix to see if patient would respond - s eemed to have good response on 08/23, but poor response on 08/24, so decision was made to dial yze the patient on 08/[address] tunneled dialysis catheter for likely longer term HD. Assessment: #Non-oliguric acute kidney injury, on CKD III Cause for KAR thought to be multifactorial - recent surgery, vasoconstriction from tacrolim us and bactrim administration. S/p HD on 08/22/19. Held off on further HD on 08/23 an 08/24 in setting of stable labs and decided to move forward with a trial of lasix to see if patient w ould respond. Initially seemed to have good UOP response on 08/23 with IV lasix 60 mg, howeve r on 08/24 received 2 doses of 60 mg IV lasix with only 800 mL of UOP total for 24 hours. Con cern that patient was becoming unresponsive to lasix and that additional, higher doses would not have made much of a difference in patients overall picture as he continues to be signif icantly net positive and volume overloaded on exam. Also, patient has not yet had return of renal function, and overall clinical trajectory at least for now looks like he is going to n eed further HD at LEAST in the short term. -HD run today 08/25/19 -Plan to place tunneled dialysis catheter per IR -Will likely need continued dialysis unless renal function improves - will work with case management to get patient an outpatient bed #Hyperkalemia, resolved Also thought to be multifactorial in the setting of recent KAR and Bactrim. Stable this AM at 4.7. -HD as above #Hyperphosphatemia Patient with improved phos this AM at 5.4 -No need for sevelamer, continue low phos diet, continue to monitor Patient was seen and staffed with Dr. Roberts, who agrees with the assessment and plan. HPI/ REVIEW OF SYSTEMS: IE: Patient was given 2 doses of IV lasix 60 mg yesterday without great response (only 800 mL total over 24 hours). Patient this AM states that he did notice decreased urine output ov er the last 24 hours. Also noted some oozing from his surgical site overnight that kept him up last night. Otherwise, patient has no complaints. Feels his edema is at its baseline and stable. Denies N/V/SOB. Constitutional: negative Cardiovascular: negative Genitourinary: negative Psychiatric: negative Hematologic/Lymphatic: negative Eyes: negative Respiratory: negative Integumentary: negative Endocrine: negative Ears/Nose/Throat: negative Gastrointestinal: negative Musculoskeletal: negative Neurological: negative Allergic/Immunologic: negative MEDICATIONS: Medications Prior to Admission Medication Sig Dispense Refill Last Dose [DISCONTINUED] deferiprone 500 mg oral tablet Take 4 tablets (2,000mg) by mouth three t imes daily. 360 tablet 3 [DISCONTINUED] furosemide 20 mg oral tablet Take 2 tablets by mouth two times daily. [DISCONTINUED] lactulose 10 gram/15 mL oral solution Take 15 mL by mouth two times mirtha y. 15 mL [DISCONTINUED] metoprolol succinate 50 mg oral tablet extended release 24 hr Take 0.5 t ablets by mouth once daily. 60 tablet 1 [DISCONTINUED] spironolactone 100 mg oral tablet Take 1 tablet by mouth once daily. Current Facility-Administered Medications Medication Dose Route Frequency Last Rate amiodarone (CORDARONE) tablet 200 mg 200 mg oral DAILY aspirin tablet 325 mg 325 mg oral DAILY fluconazole (DIFLUCAN) tablet 400 mg 400 mg oral Once per day on Sat guar gum (BENEFIBER) oral powder 1 packet 1 packet oral DAILY insulin lispro (HUMALOG) injection 1-16 Units 1-16 Units subcutaneous TID W/MEALS [START ON 08/26/2019] insulin lispro (HUMALOG) injection 3 Units 3 Units subcutaneous Q AM MEAL insulin lispro (HUMALOG) injection 5 Units 5 Units subcutaneous QLUNCH insulin lispro (HUMALOG) injection 9 Units 9 Units subcutaneous QPM MEAL insulin NPH (HUMULIN N) injection 17 Units 17 Units subcutaneous QAM insulin NPH (HUMULIN N) injection 6 Units 6 Units subcutaneous HS lidocaine (LIDODERM) 5 % patch 1 patch 1 patch transdermal Q24H lidocaine (LIDODERM) 5 % patch 1 patch 1 patch transdermal Q24H metoprolol tartrate (LOPRESSOR) tablet 6.25 mg 6.25 mg oral BID mycophenolate (CELLCEPT) capsule 1,000 mg 1,000 mg oral BID (MMF) omeprazole (PRILOSEC) capsule 20 mg 20 mg oral BEFORE BREAKFAST polyethylene glycol (MIRALAX) packet 17 g 17 g oral DAILY predniSONE (DELTASONE) tablet 20 mg 20 mg oral DAILY probiotic kefir (MAGEN'S KEFIR) oral BID QUEtiapine (SEROQUEL) tablet 25 mg 25 mg oral HS senna-docusate (SENOKOT S) 8.6-50 mg 1 tablet 1 tablet oral BID tacrolimus capsule 4 mg 4 mg oral BID ( and ) tamsulosin (FLOMAX) capsule 0.4 mg 0.4 mg oral DAILY trimethoprim-sulfamethoxazole (BACTRIM, SEPTRA) 80-400 mg 1 tablet 1 tablet oral Once per day on Sat [START ON 08/27/2019] valGANciclovir (VALCYTE) tablet 450 mg 450 mg oral Once per day o n Sat Current Facility-Administered Medications Medication Dose Route Frequency Last Rate acetaminophen (TYLENOL) tablet 500 mg 500 mg oral Q6H PRN albumin human (BUMINATE, FLEXBUMIN) 5 % injection 25 g 25 g intravenous DAILY PRN bisacodyl (DULCOLAX) suppository 10 mg 10 mg rectal DAILY PRN dextrose 50 % in water IV 25 mL 25 mL intravenous PRN glucagon (GLUCAGEN) injection 1 mg 1 mg intramuscular PRN glucose chewable tablet 16 g 16 g oral PRN heparin 1,000 unit/mL injection 1-3 mL 1-3 mL Intracatheter 4B DIALYSIS PRN oxyCODONE (immediate release) (ROXICODONE) tablet 2.5-5 mg 2.5-5 mg oral Q4H PRN polyethylene glycol (MIRALAX) packet 34 g 34 g oral TID PRN QUEtiapine (SEROQUEL) tablet 25 mg 25 mg oral HS PRN sodium chloride 0.9 % (NS) IV infusion 100-200 mL intravenous 4B DIALYSIS PRN Current Facility-Administered Medications Medication Dose Route Frequency Last Rate ALLERGIES: Allergies Allergen Reactions Doxycycline Hives and Rash PHYSICAL EXAM: Last Vitals: BP 122/61 | Pulse 76 | Temp 36.6 C (97.9 F) | Resp 18 | Ht 1.803 m (5' 11") | Wt 105.6 kg (232 lb 12.9 oz) | SpO2 100% | BMI 32.47 kg/m | BSA 2.3 m Curren t FIO2 (%): 21 fraction of O2 (08/16/19 1329) O2 Delivery Device: None (room air) (08/25/19 0892) 24 Hour Vital Min/Max: Systolic (24hrs), Av , Min:87 , Max:191 Diastolic (24hrs), Av, Min:46, Max:99 Pulse Min: 74 Max: 94 Temp Min: 36.4 C (97.5 F) Max: 36.9 C (98.4 F) Resp Min: 16 Max: 20 SpO2 Min: 100 % Max: 100 % Intake/Output Summary (Last 24 hours) at 08/25/2019 1339 Last data filed at 08/25/2019 0830 Gross per 24 hour Intake 2301 ml Output 800 ml Net 1501 ml Constitutional: NAD, appears older than stated age, somewhat jaundiced Sitting in bed recei ving dialysis HEENT: NCAT Neck: Supple, trachea midline. Respiratory: Clear to auscultation bilaterally, normal respiratory effort. CV: Regular rhythm, normal rate. S1 and S2 normal, no m/r/g. Pulses 2+ in all distal extre mities and carotid arteries, No JVD. GI: Soft, non-tender, mild distention Extremities: Warm and well perfused, 2-3+ pitting edema to thighs Skin: Warm and dry. No rashes or concerning lesions noted. Normal nail-beds. Neurologic / Musculoskeletal: Grossly non-focal. No Tremor or asterixis. Lymphatic: No supraclavicular or cervical adenopathy. Psychiatric: Normal mood and affect. LAB / STUDIES: All blood, urine, radiographic, and other diagnostic test results noted below were personal ly reviewed. Lab Results Component Value Date NA 136 08/25/2019 K 4.7 08/25/2019 CL 106 08/25/2019 BICARB 24 08/25/2019 BUN 103 08/25/2019 CR 2.61 08/25/2019 GLU 206 08/25/2019 CA 8.3 08/25/2019 Lab Results Component Value Date PO4 5.4 08/25/2019 Lab Results Component Value Date MG 2.1 08/25/2019 Lab Results Component Value Date WBC 5.47 08/25/2019 HB 8.2 08/25/2019 HCT 24.5 08/25/2019 PLT 67 08/25/2019 MCV 98.4 08/25/2019 RDW 60.0 08/25/2019 Lab Results Component Value Date URINECOLOR Yudy 08/15/2019 URAPPEARANCE Clear 08/15/2019 URINEPROTEIN Negative 05/20/2019 URINEPH 5.5 05/20/2019 URSPECGRAV 1.010 05/20/2019 URINEGLUCOSE Negative 05/20/2019 Lab Results Component Value Date URINEAMPPHOS None 08/15/2019 URINEBACTERI None 08/15/2019 URINECAOX None 08/15/2019 URINECAST 0 08/15/2019 URINEGRANCAS 0 08/15/2019 URINEHYALINE 0 08/15/2019 URINEMUCOUS None 08/15/2019 URINEEPITH Few 08/15/2019 URINEREDCELL 1 08/15/2019 URINESQEPI None 08/15/2019 URINEPO4 None 08/15/2019 URINEWBC <1 08/15/2019 URINEYEAST None 08/15/2019 Associated attestation - Hakan Roberts MD - 08/27/2019 8:20 AM PSTI personally interviewe d the patient, performed the pertinent parts of the physical examination and personally form ulated the plan with the resident on 08/25/19. I agree with the residents documentation and have documented any additions or exceptions. Clearance remains poor with suboptimal UOP. Wi ll plan to continue iHD and continue to monitor for renal recovery. Agree with tunnel line a nd outpt HD unit placement. HAKAN ROBERTS MD [facility] [address] [place] [id number] Vandana Silva RN - 08/25/2019 12:27 PM PSTDaVita note (code 100): Hemodialysis serviec es provided from 1306-11987. Report received from Anh Smallwood RN 0962 Safety checklist performed. Timeout (ICEOAT?) PERFORMED. Consent confirmed, labs revie wed, orders verified, CVC accessed per protocol, flushes and aspirates easily, pt tolerated well, treatment initiated. 1215 Treatment complete, UF goal and time met, blood returned, patient tolerated well, CVC flushed and packed with heparin per protocol; access WDL, dialyzer minimal streaking. Patient education documented. Report reviewed with Anh Smallwood RN Liters processed (L). 59.9L* Total fluid removed (mL) 1500 Total fluid given (mL) 500 Net fluid removed (mL) 1000 Acid lot #: [id number] Acid exp date: 07/20/21 Bicarb lot #: [id number] Bicarb exp date: 01/05/21 Pattie Rhodes PA-C - 08/25/2019 8:29 AM PSTFormatting of this note might be differ ent from the original. DEPARTMENT OF SURGERY Transplant Surgery Admission Date: 07/17/2019 ( LOS: 39 days ) Attending Provider: Una Bazan MD Interval History and Events: Old hematoma coming out incision; output is slowing Hgb/hct is stable Tolerating a diet; having issues with timing of meals and Na restriction UOP is stable despite increased lasix Ambulating Teaching started Last Vitals: BP 129/70 (BP Location: Right upper arm, Patient Position: Lying on back) | P ulse 87 | Temp 36.6 C (97.9 F) (Oral) | Resp 18 | Ht 1.803 m (5' 11") | Wt 105.6 kg (232 lb 12.9 oz) | SpO2 100% | BMI 32.47 kg/m | BSA 2.3 m 24 Hour Vital Min/Max: Systolic (24hrs), Av , Min:129 , Max:150 Diastolic (24hrs), Av, Min:66, Max:99 Pulse Min: 77 Max: 94 Temp Min: 36.4 C (97.5 F) Max: 36.7 C (98.1 F) Resp Min: 18 Max: 20 SpO2 Min: 100 % Max: 100 % Intake/Output 08/23 701 - 08/24 - 08/25 - 08/26 07 P.O. 1760 2701 I.V. 10 IV Piggyback 200 Total Intake 1970 2701 Urine (mL/kg/hr) 1925 (0.8) 800 (0.3) Other 0 0 Ultrafiltrate Total Output(mL/kg) 1925 (18.2) 800 (7.6) Net +45 +1901 Urine 1 x 3 x Stool 1 x 1 x General: Alert, No acute distress, sitting in chair, comfortable appearing Respiratory: Respirations are non-labored Cardiovascular: Well-perfused Gastrointestinal: Soft, non-tender, non-distended incision healthy appearing with katiuska Neurologic: Alert, Oriented. Musculoskeletal: Normal range of motion. LE with wraps in place Psychiatric: Cooperative. Data Recent Labs 08/23/1953508/24/1955108/24/19213208/25/1963108/25/1937 NA 137 -- 137 -- -- 136 -- K 4.7 -- 4.8 -- -- 4.7 -- CL 106 -- 105 -- -- 106 -- BICARB 25 -- 26 -- -- 24 -- BUN 99* -- 99* -- -- 103* -- CR 2.03* -- 2.37* -- -- 2.61* -- GLU 149* < > 228* < > 308* 238* 206* CA 8.1* -- 8.5* -- -- 8.3* -- PO4 4.9* -- 6.1* -- -- 5.4* -- < > = values in this interval not displayed. Recent Labs 08/23/1953508/24/1955108/25/19631 AST 11 11 9 ALT 44 45 40 TBILI 1.1 1.1 1.0 AP 29* 34* 33* ALB 3.6 4.4 3.7 TP 5.4* 6.3* 5.6* Recent Labs 08/24/19 0552 PREALB 24.5 Recent Labs 08/23/19 0536 08/24/19 0552 08/25/19 0632 AMYLASEPLAS 19* 19* 14* Recent Labs 08/23/19 0536 08/24/19 0552 08/24/19 2323 08/25/19 0632 WBC 5.03 4.47 5.54 5.47 HB 8.5* 8.8* 8.3* 8.2* HCT 26.0* 27.0* 24.7* 24.5* PLT 47* 55* 60* 67* NEUTROPERC 76.7* 75.9* -- 76.1* LYMPHPERC 12.9* 13.4* -- 14.1* MONOPERC 7.0 6.3 -- 6.0 BASOPERC 0.2 0.2 -- 0.2 EOSPERC 2.4 2.9 -- 2.9 Recent Labs 08/24/19 0552 08/25/19 0115 08/25/19 0632 INRPT 1.34* 1.41* 1.36* APTT -- 30.9 -- FIBRINOGEN -- 185 -- Assessment and Plan: ASSESSMENT Doug Lawson is a 54 y.o. male with EtOH cirrhosis s/p OLTx on 08/16. He had a prol onged inpatient course prior to transplant; was deconditioned and malnourished. He continues to do well with appropriate graft function. Increasing his nutrition and conditioning. Plan # OLTx OOB, JEANNETTE duenas Asa 325 Change incision dressing as needed; use binder. Likely old hematoma. - Immunosuppression. Continue MMF, tacro and prednisone taper. Will use PO MMF indefinitely (aza interacts wit h amiodarone) - Prophylaxis Valgan 450, renally dosed tmp/smx, fluconazole #KAR Planning for HD today Likely needs tunneled line tomorrow # h/o afib/flutter and wide complex tachycardia intraop Continue PO amiodarone Continue metop # T2DM: difficult to control NPH and ISS Endocrinology following # Insomnia Continue seroquel 25 mg QHS with additional dose as needed #Deconditioning PT/OT #Severe protein calorie malnutrition Diabetic diet with Na restriction + supplements Continue calorie counts Albumin scheduled # Dispo Continue acute care. Pattie Ignacio PA-C Abdominal Organ Transplant Surgery [facility] Judie Ornelas RN - 08/24/2019 11:16 AM PSTLiver Transplant Discharge teaching completed with Priyanka ( mom) Donell . Reviewed "Resuming Life After Liver Transplant" book. All sections reviewed includin g Transplant Office contact numbers, emergency contact numbers, lab and clinic schedules, si gns and symptoms of infection and rejection, medications, activity restrictions and general health maintenance. All were receptive of information, asked appropriate questions and ambar ed any questions or concerns at this time. Will repeat teaching PRN. Kris Chavez MD - 08/24/2019 10:08 AM PST DEPARTMENT OF SURGERY Transplant Surgery Admission Date: 07/17/2019 ( LOS: 38 days ) Attending Provider: Una Bazan MD Interval History and Events: Pain well controlled Last Vitals: BP 160/80 (BP Location: Right upper arm, Patient Position: Sitting) | Pulse 8 8 | Temp 36.7 C (98.1 F) (Oral) | Resp 18 | Ht 1.803 m (5' 11") | Wt 105.6 kg (232 l b 12.9 oz) | SpO2 100% | BMI 32.47 kg/m | BSA 2.3 m 24 Hour Vital Min/Max: Systolic (24hrs), Av , Min:138 , Max:160 Diastolic (24hrs), Av, Min:65, Max:80 Pulse Min: 77 Max: 88 Temp Min: 36.5 C (97.7 F) Max: 36.8 C (98.2 F) Resp Min: 16 Max: 18 SpO2 Min: 98 % Max: 100 % Intake/Output 08/22 701 - 08/23 0700 08/23 701 - 08/24 0708/24 - 08/25 0700 P.O. 2105 1760 640 I.V. 30 10 Other IV Piggyback 250 200 Total Intake 2385 1970 640 Urine (mL/kg/hr) 1575 (0.6) 1925 (0.8) Other 0 0 Ultrafiltrate 500 Total Output(mL/kg) 2075 (20) 1925 (18.2) Net +310 +45 +640 Urine 1 x 1 x Stool 3 x 1 x General: Alert, No acute distress, sitting in chair, comfortable appearing Respiratory: Respirations are non-labored Cardiovascular: Well-perfused Gastrointestinal: Soft, non-tender, non-distended incision healthy appearing with katiuska Neurologic: Alert, Oriented. Musculoskeletal: Normal range of motion. LE with wraps in place Psychiatric: Cooperative. Data Recent Labs 08/22/1953808/23/1953508/24/1955108/24/1971708/24/19 1001 NA 135* -- 137 -- 137 -- -- K 5.4* -- 4.7 -- 4.8 -- -- CL 104 -- 106 -- 105 -- -- BICARB 19* -- 25 -- 26 -- -- BUN 150* -- 99* -- 99* -- -- CR 2.58* -- 2.03* -- 2.37* -- -- GLU 103* < > 149* < > 228* 209* 209* CA 8.5* -- 8.1* -- 8.5* -- -- PO4 6.8* -- 4.9* -- 6.1* -- -- < > = values in this interval not displayed. Recent Labs 08/22/1953808/23/1953508/24/19551 AST 13 11 11 ALT 59 44 45 TBILI 1.3* 1.1 1.1 AP 32* 29* 34* ALB 3.9 3.6 4.4 TP 5.7* 5.4* 6.3* Recent Labs 08/24/19551 PREALB 24.5 Recent Labs 08/22/1953808/23/1953508/24/19551 AMYLASEPLAS 23* 19* 19* Recent Labs 11/02/19 0539 11/03/19 0536 11/04/19 0552 WBC 6.54 5.03 4.47 HB 9.8* 8.5* 8.8* HCT 29.3* 26.0* 27.0* PLT 53* 47* 55* NEUTROPERC 79.5* 76.7* 75.9* LYMPHPERC 11.6* 12.9* 13.4* MONOPERC 6.1 7.0 6.3 BASOPERC 0.2 0.2 0.2 EOSPERC 1.2 2.4 2.9 Recent Labs 08/22/19 0539 08/23/19 0535 08/24/19 0552 INRPT 1.31* 1.39* 1.34* Assessment and Plan: ASSESSMENT Doug Lawson is a 54 y.o. male with EtOH cirrhosis s/p OLTx on 08/16. He had a prol onged inpatient course prior to transplant; was deconditioned and malnourished. He continues to do well with appropriate graft function. Increasing his nutrition and conditioning. Plan # OLTx OOBEJANNETTE Asa 325 Will discontinue albumin today - Immunosuppression. Continue MMF, tacro and prednisone taper. Will use PO MMF indefinitely (aza interacts wit h amiodarone) - Prophylaxis Valgan 450, tmp/smx, fluconazole #KAR, no HD today. 60 IV furosemide # h/o afib/flutter and wide complex tachycardia intraop Continue PO amiodarone Continue metop # T2DM: difficult to control NPH and ISS Endocrinology following # Insomnia Continue seroquel 25 mg QHS with additional dose as needed #Deconditioning PT/OT #Severe protein calorie malnutrition Diabetic diet + supplements Continue calorie counts Albumin scheduled # Dispo Continue acute care. Kris Pantoja MD PGY 3 Associated attestation - Una aBzan MD - 08/25/2019 11:12 AM PSTTransplant/ Hepatobilia ry Staff Note I saw and evaluated the patient. I agree with the findings and the plan of care as dominick machado in Dr. Pantoja's note. OLTx 08/16/19, for ETOH and MARS cirrhosis, OOBJEANNETTE, Asa 3 25 Will discontinue albumin today Immunosuppression. Continue MMF, FK506 with level 4-6 for now due to Cr and prednisone tap er. Will use PO MMF indefinitely (aza interacts with amiodarone) - Prophylaxis Valgan 450, tmp/smx, fluconazole KAR, no HD today. 60 IV furosemide h/o afib/flutter and wide complex tachycardia intraop Continue PO amiodarone Continue metop T2DM: difficult to control NPH and ISS Endocrinology following Home likely Saturday or . UNA BAZAN MD second baller Chief, Abdominal Organ Transplantation - Hepatobiliary Surgery [address] [place] [address] Amaris Medina, LEARNING ENGINEER - 08/24/2019 9:58 AM PSTPost- Transplant Social Work Inpatient Co ntact- Discharge visit Purpose of Visit: LEARNING ENGINEER met w/pt for transplant social work visit after transplant surgery on 08/16/2019. Pt r eceived a liver transplant. Pt s pre-tx psychosocial assessment was completed on 04/22/2019. Pt's mother Priyanka was present at bedside. Teaching is scheduled for today at 10am. Pt s Coping/Adjustment to Transplant Recovery: Pt reports to be coping well, stating "I feel great". He is continuing to have challenges w ith sleep, and reports he is sleeping about 4 hrs per night. Pt is aware of the potential si de effects from Prednisone. Reviewed with his mother today, who will be his primary support until his sister is able to come out from [place] next week. 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 This has been a point of frustration fo r pt, as he understands he needs to eat every 12 hours for his medications. Pt will meet [facility] today, to further discuss his diet and dietary restrictions. Post-Hospital Support Plan: Pt will recover at a house he and his family has rented in [place]. They have the house re nted through November. His mother Priyanka will provide support initially and his sister Doreen will join next week. They then will alternate staying with pt. Discharge Plan: No barriers to discharge identified from a psychosocial perspective, in tact recovery suppo rt plan. CM RN & MDT aware. Additional Concerns/Needs: None at this time. Conclusion & Follow-Up Plan: No further psychosocial needs identified at this time. JACOBY will plan to follow up with pat ient and family post discharge at clinic appointments and as needed. Amaris Medina LCSW Clinical Transplant [place] Pager: [phone] signed by Amaris Medina LCSW at 08/24/2019 10:21 AM PSTByl Fadia moore DO - 08/24/2019 9:37 AM PSTFormatting of this note might be different from the o riginal. Nephrology Inpatient Follow-up Note This patient has not been staffed yet, please wait for final recs IDENTIFICATION: PATIENT NAME: Doug Lawson : 1965 DATE OF ADMISSION: 07/17/2019 DATE OF SERVICE: 08/24/2019 HOSPITAL DAY: 38 PCP: Sharon David MD REQUESTING PROVIDER: Dr. Marsha Garcia REASON FOR CONSULTATION: KAR IMPRESSION & RECOMMENDATIONS: Doug Lawson is a 54 y.o. male with hx of EtOH cirrhosis now s/p OLTx on 08/16. He had a prolonged inpatient course prior to transplant and was deconditioned and malnourished. Now doing much improved with appropriate graft function post-transplant. Was previously see n by nephrology for CKD management, and nephrology was re-consulted for KAR with hyperkalemi a in the setting of recent surgery, tacrolimus and bactrim administration. S/p HD on 08/22. H eld off on further HD on 08/23/19 in setting of stable K and lower BUN, trialed IV lasix 60 m g to see if this would help manage volume overload. Assessment: #Non-oliguric acute kidney injury, on CKD III Cause for KAR thought to be multifactorial - recent surgery, vasoconstriction from tacrolim us and bactrim administration. S/p HD on 08/22/19. Held off on further HD on 08/23 in setting of stable labs. Today, K remains stable at 4.8, stable BUN at 99. Favor holding off on HD ag ain today, however, patient has not recovered renal function, and will have to monitor close ly - may need additional HD in the next few days - recommend leaving temporary dialysis line in. Trialed IV lasix 60 mg for volume overload yesterday. Patient with good response with U OP of approx 550 mL 2 hours after diuretic dose, however patient continues to be quite net p ositive over the course of his stay and volume overloaded on exam, would likely benefit from continued diuresis -Hold off on further HD today, however, patient's renal function does not appear to be rec overing as of yet - if this continues he will likely need further HD in the future, so we wi ll continue to follow closely. Please leave temporary HD line in -IV lasix 60 mg once this AM, monitor UOP with goal of net -1L today. If not meeting this goal please re-dose additional 60mg IV lasix. #Hyperkalemia Also thought to be multifactorial in the setting of recent KAR and Bactrim. Stable this AM at 4.8. No indication for acute treatment at this time. However, patient has not recovered r enal function so will need to continue to monitor closely -Recommend transitioning to renal diet for low K+ -Lasix as above should help with clearance of K+ #Hyperphosphatemia Patient with elevated phos this AM at 6.1. -Recommend renal diet, with low phos Acute kidney injury on chronic kidney disease Chronic kidney disease stage 3 (moderate) Hyperkalemia Anemia unspecified Anemia in chronic kidney disease Hyperphosphatemia Patient was seen and staffed with Dr. Roberts, who agrees with the assessment and plan. HPI/ REVIEW OF SYSTEMS: Reason for consult: KAR Interval Events: Held off on HD yesterday due to stable labs. IV lasix 60 mg with good UOP response. This AM, patient states he is feeling better overall. He feels that he made good urine with the lasix yesterday, and states that he feels like he has less swelling today. He denies N/ V, states he has a good appetite. Denies confusion. Constitutional: negative Cardiovascular: negative Genitourinary: negative Psychiatric: negative Hematologic/Lymphatic: negative Eyes: negative Respiratory: negative Integumentary: negative Endocrine: negative Ears/Nose/Throat: negative Gastrointestinal: negative Musculoskeletal: positive for swelling, feels improved from prior Neurological: negative Allergic/Immunologic: negative MEDICATIONS: Medications Prior to Admission Medication Sig Dispense Refill Last Dose [DISCONTINUED] deferiprone 500 mg oral tablet Take 4 tablets (2,000mg) by mouth three t imes daily. 360 tablet 3 [DISCONTINUED] furosemide 20 mg oral tablet Take 2 tablets by mouth two times daily. [DISCONTINUED] lactulose 10 gram/15 mL oral solution Take 15 mL by mouth two times mirtha y. 15 mL [DISCONTINUED] metoprolol succinate 50 mg oral tablet extended release 24 hr Take 0.5 t ablets by mouth once daily. 60 tablet 1 [DISCONTINUED] spironolactone 100 mg oral tablet Take 1 tablet by mouth once daily. Current Facility-Administered Medications Medication Dose Route Frequency Last Rate amiodarone (CORDARONE) tablet 200 mg 200 mg oral DAILY aspirin tablet 325 mg 325 mg oral DAILY fluconazole (DIFLUCAN) tablet 400 mg 400 mg oral Once per day on Sat guar gum (BENEFIBER) oral powder 1 packet 1 packet oral DAILY insulin lispro (HUMALOG) injection 1-16 Units 1-16 Units subcutaneous TID W/MEALS insulin NPH (HUMULIN N) injection 17 Units 17 Units subcutaneous QAM insulin NPH (HUMULIN N) injection 6 Units 6 Units subcutaneous HS lidocaine (LIDODERM) 5 % patch 1 patch 1 patch transdermal Q24H lidocaine (LIDODERM) 5 % patch 1 patch 1 patch transdermal Q24H metoprolol tartrate (LOPRESSOR) tablet 6.25 mg 6.25 mg oral BID mycophenolate (CELLCEPT) capsule 1,000 mg 1,000 mg oral BID (MMF) omeprazole (PRILOSEC) capsule 20 mg 20 mg oral BEFORE BREAKFAST polyethylene glycol (MIRALAX) packet 17 g 17 g oral DAILY predniSONE (DELTASONE) tablet 20 mg 20 mg oral DAILY probiotic kefir (MAGEN'S KEFIR) oral BID QUEtiapine (SEROQUEL) tablet 25 mg 25 mg oral HS senna-docusate (SENOKOT S) 8.6-50 mg 1 tablet 1 tablet oral BID tacrolimus capsule 4 mg 4 mg oral BID ( and ) tamsulosin (FLOMAX) capsule 0.4 mg 0.4 mg oral DAILY trimethoprim-sulfamethoxazole (BACTRIM, SEPTRA) 80-400 mg 1 tablet 1 tablet oral Once per day on Sat valGANciclovir (VALCYTE) tablet 450 mg 450 mg oral DAILY Current Facility-Administered Medications Medication Dose Route Frequency Last Rate acetaminophen (TYLENOL) tablet 500 mg 500 mg oral Q6H PRN albumin human (BUMINATE, FLEXBUMIN) 5 % injection 25 g 25 g intravenous DAILY PRN bisacodyl (DULCOLAX) suppository 10 mg 10 mg rectal DAILY PRN dextrose 50 % in water IV 25 mL 25 mL intravenous PRN glucagon (GLUCAGEN) injection 1 mg 1 mg intramuscular PRN glucose chewable tablet 16 g 16 g oral PRN oxyCODONE (immediate release) (ROXICODONE) tablet 2.5-5 mg 2.5-5 mg oral Q4H PRN polyethylene glycol (MIRALAX) packet 34 g 34 g oral TID PRN QUEtiapine (SEROQUEL) tablet 25 mg 25 mg oral HS PRN Current Facility-Administered Medications Medication Dose Route Frequency Last Rate ALLERGIES: Allergies Allergen Reactions Doxycycline Hives and Rash PHYSICAL EXAM: Last Vitals: BP 160/80 (BP Location: Right upper arm, Patient Position: Sitting) | Pulse 8 8 | Temp 36.7 C (98.1 F) (Oral) | Resp 18 | Ht 1.803 m (5' 11") | Wt 105.6 kg (232 l b 12.9 oz) | SpO2 100% | BMI 32.47 kg/m | BSA 2.3 m Current FIO2 (%): 21 fraction of O2 (08/16/19 1329) O2 Delivery Device: None (room air) (08/24/19 6821) 24 Hour Vital Min/Max: Systolic (24hrs), Av , Min:138 , Max:160 Diastolic (24hrs), Av, Min:65, Max:80 Pulse Min: 77 Max: 88 Temp Min: 36.5 C (97.7 F) Max: 36.8 C (98.2 F) Resp Min: 16 Max: 18 SpO2 Min: 98 % Max: 100 % Intake/Output Summary (Last 24 hours) at 08/24/2019 0938 Last data filed at 08/24/2019 0747 Gross per 24 hour Intake 1950 ml Output 1650 ml Net 300 ml Constitutional: NAD. Alert and cooperative. Appears as stated age. HEENT: NCAT, anicteric sclera, mucosa moist, oropharynx is clear. Neck: Supple, trachea midline. RIJ with temporary dialysis catheter, clean and dry with jessica rounding ecchymosis but no hematoma appreciated Respiratory: Clear to auscultation bilaterally, normal respiratory effort. CV: RRR, normal S1/S2, systolic murmur, no rub GI: Soft, non-tender, mild distention present Extremities: Warm and well perfused. 2-3+ edema up to thigh Skin: Warm and dry, scattered ecchymoses Neurologic / Musculoskeletal: Grossly non-focal. No Tremor or asterixis. Psychiatric: Normal mood and affect. LAB / STUDIES: All blood, urine, radiographic, and other diagnostic test results noted below were personal ly reviewed. Lab Results Component Value Date NA 137 08/24/2019 K 4.8 08/24/2019 CL 105 08/24/2019 BICARB 26 08/24/2019 BUN 99 08/24/2019 CR 2.37 08/24/2019 GLU 209 08/24/2019 CA 8.5 08/24/2019 Lab Results Component Value Date PO4 6.1 08/24/2019 Lab Results Component Value Date MG 2.1 08/24/2019 Lab Results Component Value Date WBC 4.47 08/24/2019 HB 8.8 08/24/2019 HCT 27.0 08/24/2019 PLT 55 08/24/2019 MCV 99.6 08/24/2019 RDW 58.9 08/24/2019 Lab Results Component Value Date URINECOLOR Yudy 08/15/2019 URAPPEARANCE Clear 08/15/2019 URINEPROTEIN Negative 05/20/2019 URINEPH 5.5 05/20/2019 URSPECGRAV 1.010 05/20/2019 URINEGLUCOSE Negative 05/20/2019 Lab Results Component Value Date URINEAMPPHOS None 08/15/2019 URINEBACTERI None 08/15/2019 URINECAOX None 08/15/2019 URINECAST 0 08/15/2019 URINEGRANCAS 0 08/15/2019 URINEHYALINE 0 08/15/2019 URINEMUCOUS None 08/15/2019 URINEEPITH Few 08/15/2019 URINEREDCELL 1 08/15/2019 URINESQEPI None 08/15/2019 URINEPO4 None 08/15/2019 URINEWBC <1 08/15/2019 URINEYEAST None 08/15/2019 Associated attestation - Hakan Roberts MD - 08/25/2019 9:40 AM PSTI personally interviewe d the patient, performed the pertinent parts of the physical examination and personally form ulated the plan with the resident on 08/24/19. I agree with the residents documentation and have documented any additions or exceptions. HAKAN ROBERTS MD [facility] [id number] [place] [id number] Homero Cid MD - 08/23/2019 2:15 PM PST DEPARTMENT OF SURGERY Transplant Surgery Admission Date: 07/17/2019 ( LOS: 37 days ) Attending Provider: Una Bazan MD Interval History and Events: HD line placed yesterday and HD - 500 Pain well controlled Ambulating Last Vitals: BP 155/66 | Pulse 82 | Temp 36.9 C (98.4 F) | Resp 16 | Ht 1.803 m (5' 11") | Wt 103.9 kg (229 lb 0.9 oz) | SpO2 100% | BMI 31.95 kg/m | BSA 2.28 m 24 Hour Vital Min/Max: Systolic (24hrs), Av , Min:123 , Max:155 Diastolic (24hrs), Av, Min:66, Max:78 Pulse Min: 73 Max: 84 Temp Min: 36 C (96.8 F) Max: 36.9 C (98.4 F) Resp Min: 16 Max: 20 SpO2 Min: 100 % Max: 100 % Intake/Output 08/21 0701 - 08/22 0700 08/22 0701 - 08/23 0700 08/23 0701 - 08/24 0700 P.O. 790 2105 1110 I.V. 30 30 10 Other 488 IV Piggyback 200 250 Total Intake 1508 2385 1120 Urine (mL/kg/hr) 1150 (0.5) 1575 (0.6) 1225 (1.6) Other 0 0 Ultrafiltrate 500 Total Output(mL/kg) 1150 (11.1) 2075 (20) 1225 (11.8) Net +358 +310 -105 Stool 3 x 3 x General: Alert, No acute distress, sitting in chair, comfortable appearing Respiratory: Respirations are non-labored Cardiovascular: Well-perfused Gastrointestinal: Soft, non-tender, non-distended incision healthy appearing with katiuska Neurologic: Alert, Oriented. Musculoskeletal: Normal range of motion. LE with wraps in place Psychiatric: Cooperative. Data Recent Labs 08/21/1965708/22/19 0539 08/23/19 0536 08/23/19 0725 08/23/19 1246 NA 132* -- 135* -- 137 -- -- K 4.6 -- 5.4* -- 4.7 -- -- CL 102 -- 104 -- 106 -- -- BICARB 23 -- 19* -- 25 -- -- BUN 129* -- 150* -- 99* -- -- CR 2.40* -- 2.58* -- 2.03* -- -- GLU 223* < > 103* < > 149* 122* 146* CA 8.7 -- 8.5* -- 8.1* -- -- PO4 5.0* -- 6.8* -- 4.9* -- -- < > = values in this interval not displayed. Recent Labs 08/21/1965708/22/19 0539 08/23/19 0536 AST 15 13 11 ALT 82* 59 44 TBILI 1.6* 1.3* 1.1 AP 44* 32* 29* ALB 4.5 3.9 3.6 TP 6.9 5.7* 5.4* Recent Labs 08/21/1958 08/22/19 0539 08/23/19 0536 AMYLASEPLAS 19* 23* 19* Recent Labs 08/21/1958 08/22/19 0539 08/23/19 0536 WBC 10.19 6.54 5.03 HB 11.0* 9.8* 8.5* HCT 34.2* 29.3* 26.0* PLT 68* 53* 47* NEUTROPERC 79.2* 79.5* 76.7* LYMPHPERC 10.2* 11.6* 12.9* MONOPERC 7.6 6.1 7.0 BASOPERC 0.2 0.2 0.2 EOSPERC 1.5 1.2 2.4 Recent Labs 08/21/1965708/22/19 0539 08/23/19 0535 INRPT 1.27* 1.31* 1.39* Assessment and Plan: ASSESSMENT Doug Lawson is a 54 y.o. male with EtOH cirrhosis s/p OLTx on 08/16. He had a prol onged inpatient course prior to transplant; was deconditioned and malnourished. He continues to do well with appropriate graft function. Increasing his nutrition and conditioning. Need for HD yesterday because of hypervolemia, acidosis and uremia Plan # OLTx OOB, JEANNETTE hose Asa 325 Continue albumin for kidney function - Immunosuppression. Continue MMF, tacro and prednisone taper. Will use PO MMF indefinitely (aza interacts wit h amiodarone) - Prophylaxis Valgan 450, tmp/smx, fluconazole #KAR, no HD today. 60 IV furosemide # h/o afib/flutter and wide complex tachycardia intraop Continue PO amiodarone Continue metop # T2DM: difficult to control NPH and ISS Endocrinology following # Insomnia Continue seroquel 25 mg QHS with additional dose as needed #Deconditioning PT/OT #Severe protein calorie malnutrition Diabetic diet + supplements Continue calorie counts Albumin scheduled # Dispo Continue acute care. Teaching tomorrow W. Dano Cid General Surgery R4 Abdominal Transplant Surgery Pager: [phone] Associated attestation - Una Bazan MD - 08/25/2019 11:10 AM PSTTransplant/ Hepatobilia ry Staff Note I saw and evaluated the patient. I agree with the findings and the plan of care as dominick machado in Dr. Cid's note. Doug Lawson is a 54 y.o. male with EtOH cirrhosis s/p OLTx on 08/16. Need for HD yesterday because of hypervolemia, acidosis and uremia, MS niall rojo. OOB, JEANNETTE hose Asa 325 Continue concentrated albumin for kidney function Immunosuppression. Continue MMF, FK506 with target 4-6 for Cr level, and prednisone taper. Will use PO MMF i ndefinitely (aza interacts with amiodarone) - Prophylaxis Valgan 450, tmp/smx, fluconazole no HD today. 60 IV furosemide h/o afib/flutter and wide complex tachycardia intraop Continue PO amiodarone Continue metop Home soon -- await further need for HD. Med teaching done. UNA BAZAN MD second baller Chief, Abdominal Organ Transplantation - Hepatobiliary Surgery [address] [place] [address] [address] [place] [id number] Pramod Mccain MD - 08/23/2019 12:16 PM PSTFormatting of this note might be diffe rent from the original. Inpatient Nephrology Consult Note Identification: Patient name: Doug Lawson : 1965 Date of service: 08/23/2019 Impression and Recommendations: Doug Lawson is a 54 y.o. male with EtOH cirrhosis s/p OLTx on 08/16. He had a prol onged inpatient course prior to transplant; was deconditioned and malnourished. Now doing mu ch improved with appropriate graft function. Was seen previously seen by nephrology for CKD management. Nephrology consulted today due to increased Bun and Scr, with hyperkalemia in the setting o f recovering surgery, Tacrolimus, bacrim Non oligouric Acute kidney injury, on CKD III - cause for KAR multifactorial, vasoconstriction from tacrolimus, bactrim, recent surgery - with climbing BUN and scr, would expect there to be worsening in K overtime. Patient also volume overload on exam - HD 08/22/2019 --> K stable and BUN lower. No signs of uremia on exam. Favor holding further HD today. Melissa l re-evaluate tomorrow Hyperkalemia, improved - likely related to diet (non renal), tac, kar, bactrim --> Address with HD --> change diet to renal diet. Fluid overload - will continue to monitor, may need UF Anemia unspecified - due to recent surgery, CKD Patient was seen and staffed with my supervising attending Dr. Jarrett, who agrees with the a ssessment and plan unless otherwise noted. Pramod Black MD Pager # [phone] History of present illness: Reason for consult: KAR Interval Events HD yesterday without complication Feels well this AM, denies any nausea, vomiting Review of systems: Constitutional: negative ENT: negative Cardiovascular: negative Respiratory: negative Gastrointestinal: negative Genitourinary: negative Musculoskeletal: negative Integumentary: positive for lower leg edema Neurologic: negative Psychologic: negative Hematologic: negative Physical exam: Last 24 hour min/max Temp: 36.9 C (98.4 F) Temp Min: 36 C (96.8 F) Max: 36.9 C (98.4 F) Pulse: 82 Pulse Min: 73 Max: 85 Resp: 16 Resp Min: 16 Max: 20 BP: 155/66 BP Min: 120/64 Max: 155/66 SpO2: 100 % SpO2 Min: 99 % Max: 100 % Body mass index is 31.95 kg/m. Intake/Output Summary (Last 24 hours) at 08/23/2019 1216 Last data filed at 08/23/2019 1128 Gross per 24 hour Intake 2170 ml Output 2500 ml Net -330 ml Constitutional: NAD, ENT: normal conjunctivae and anicteric sclerae. Cardiovascular: Rhythm regular. Normal S1 and S2. No murmurs, rubs or gallops. Respiratory: clear to auscultation and percussion. Abdomen: Soft, nontender and nondistended with positive bowel sounds. Healing incision Musculoskeletal: Warm and well perfused. No cyanosis. 3+ edema. Neurologic: alert and oriented. No tremor or asterixis. Skin: Normal Psychiatric: Appropriate mood and affect. Past medical history: All medical, surgical, family, and social histories were personally reviewed. Past Medical History: Diagnosis Date Cirrhosis (HCC) CKD (chronic kidney disease) Past surgical history: Past Surgical History: Procedure Laterality Date LEG SURGERY Medications: Prior to Admission Medications Prescriptions deferiprone 500 mg oral tablet Sig: Take 4 tablets (2,000mg) by mouth three times daily. furosemide 20 mg oral tablet Sig: Take 2 tablets by mouth two times daily. lactulose 10 gram/15 mL oral solution Sig: Take 15 mL by mouth two times daily. metoprolol succinate 50 mg oral tablet extended release 24 hr Sig: Take 0.5 tablets by mouth once daily. spironolactone 100 mg oral tablet Sig: Take 1 tablet by mouth once daily. Facility-Administered Medications: None Medications Scheduled Medication Dose/Rate, Route, Frequency Last Action albumin human (BUMINATE, FLEXBUMIN) 25 % injection 25 g 0 g, 0 mL/hr, IV, Q8H Stopped: 729 amiodarone (CORDARONE) tablet 200 mg 200 mg, oral, DAILY Given: 08/23 825 aspirin tablet 325 mg 325 mg, oral, DAILY Given: 08/23 825 fluconazole (DIFLUCAN) tablet 400 mg 400 mg, oral, Q MON Given: 08/17 832 guar gum (BENEFIBER) oral powder 1 packet 1 packet, oral, DAILY Given: 08/23 829 insulin lispro (HUMALOG) injection 1-16 Units 1-16 Units, subQ, TID W/MEALS Ordered insulin NPH (HUMULIN N) injection 17 Units 17 Units, subQ, QAM Given: 08/23 823 insulin NPH (HUMULIN N) injection 6 Units 6 Units, subQ, HS Ordered lidocaine (LIDODERM) 5 % patch 1 patch 1 patch, TD, Q24H Applied Patch: 08/19 1843 lidocaine (LIDODERM) 5 % patch 1 patch 1 patch, TD, Q24H Applied Patch: 08/19 1843 metoprolol tartrate (LOPRESSOR) tablet 6.25 mg 6.25 mg, oral, BID Given: 08/23 825 mycophenolate (CELLCEPT) capsule 1,000 mg 1,000 mg, oral, BID (MMF) Given: 08/23 825 omeprazole (PRILOSEC) capsule 20 mg 20 mg, oral, BEFORE BREAKFAST Given: 08/23 630 polyethylene glycol (MIRALAX) packet 17 g 17 g, oral, DAILY Given: 08/20 835 predniSONE (DELTASONE) tablet 20 mg 20 mg, oral, DAILY Ordered probiotic kefir (MAGEN'S KEFIR) No Dose/Rate, oral, BID Given - Food: 08/22 2205 QUEtiapine (SEROQUEL) tablet 25 mg 25 mg, oral, HS Given: 08/22 2203 senna-docusate (SENOKOT S) 8.6-50 mg 1 tablet 1 tablet, oral, BID Given: 08/22 2203 tacrolimus capsule 4 mg 4 mg, oral, BID ( and ) Given: 08/23 824 tamsulosin (FLOMAX) capsule 0.4 mg 0.4 mg, oral, DAILY Given: 08/23 825 trimethoprim-sulfamethoxazole (BACTRIM, SEPTRA) 80-400 mg 1 tablet 1 tablet, oral, Q - - Given: 08/21 904 valGANciclovir (VALCYTE) tablet 450 mg 450 mg, oral, DAILY Given: 08/23 825 PRN Medication Dose/Rate, Route, Frequency Last Action acetaminophen (TYLENOL) tablet 500 mg 500 mg, oral, Q6H PRN Given: 08/21 1224 albumin human (BUMINATE, FLEXBUMIN) 5 % injection 25 g 25 g, IV, DAILY PRN Ordered bisacodyl (DULCOLAX) suppository 10 mg 10 mg, rect, DAILY PRN Ordered dextrose 50 % in water IV 25 mL 25 mL, IV, PRN Ordered glucagon (GLUCAGEN) injection 1 mg 1 mg, IM, PRN Ordered glucose chewable tablet 16 g 16 g, oral, PRN Given: 08/22 1009 oxyCODONE (immediate release) (ROXICODONE) tablet 2.5-5 mg 2.5-5 mg, oral, Q4H PRN Ordered polyethylene glycol (MIRALAX) packet 34 g 34 g, oral, TID PRN Ordered QUEtiapine (SEROQUEL) tablet 25 mg 25 mg, oral, HS PRN Given: 08/18 2114 Laboratory and imaging studies: All blood, urine, radiographic, and other diagnostic test results noted below were personal ly reviewed. Recent Labs 08/21/1965708/22/1953808/23/19 0536 WBC 10.19 6.54 5.03 HB 11.0* 9.8* 8.5* HCT 34.2* 29.3* 26.0* PLT 68* 53* 47* NEUTROPERC 79.2* 79.5* 76.7* LYMPHPERC 10.2* 11.6* 12.9* MONOPERC 7.6 6.1 7.0 BASOPERC 0.2 0.2 0.2 EOSPERC 1.5 1.2 2.4 Recent Labs 08/21/1965708/22/19 0539 08/23/19 0536 NA 132* 135* 137 K 4.6 5.4* 4.7 CL 102 104 106 BICARB 23 19* 25 BUN 129* 150* 99* CR 2.40* 2.58* 2.03* Recent Labs 08/21/1965708/22/1939 08/23/19 0536 CA 8.7 8.5* 8.1* ALB 4.5 3.9 3.6 MG 2.5 2.4 2.2 PO4 5.0* 6.8* 4.9* No results found for: PTH Lab Results Component Value Date LORQ48HHSIYI 19.9 04/21/2019 Lab Results Component Value Date IRON 346 (H) 08/15/2019 IRONBINDCAP 423 08/15/2019 SATTRANSFERR 82 (H) 08/15/2019 FERRITIN 3,007 (H) 08/15/2019 Lab Results Component Value Date URINECOLOR Yudy 08/15/2019 URAPPEARANCE Clear 08/15/2019 URINEPROTEIN Negative 05/20/2019 URINEPH 5.5 05/20/2019 URSPECGRAV 1.010 05/20/2019 URINEGLUCOSE Negative 05/20/2019 Lab Results Component Value Date URINEAMPPHOS None 08/15/2019 URINEBACTERI None 08/15/2019 URINECAOX None 08/15/2019 URINECAST 0 08/15/2019 URINEGRANCAS 0 08/15/2019 URINEHYALINE 0 08/15/2019 URINEMUCOUS None 08/15/2019 URINEEPITH Few 08/15/2019 URINEREDCELL 1 08/15/2019 URINESQEPI None 08/15/2019 URINEPO4 None 08/15/2019 URINEWBC <1 08/15/2019 URINEYEAST None 08/15/2019 Renal ultrasound: No results found. Associated attestation - Mitch Jarrett MD - 08/23/2019 1:51 PM PSTI personally interviewe d the patient and performed the tamez elements of the physical examination. I formulated the a ssessment and plan with the resident. I agree with Dr Black's documentation. Plan: Holding off on dialysis today Favor attempting to diuresis with Lasix today given marked hypervolemia . Agree wi LASIX 60 mg IV x 1 Reassess in AM for further HD needs Discussed with primary team Homero Cid MD - 08/22/2019 9:29 AM PDT DEPARTMENT OF SURGERY Transplant Surgery Admission Date: 07/17/2019 ( LOS: 36 days ) Attending Provider: Una Bazan MD Interval History and Events: Pain well controlled Very hungry this AM Ambulating Complaints of scrotal and LE edema Last Vitals: BP 141/75 | Pulse 84 | Temp 37 C (98.6 F) | Resp 18 | Ht 1.803 m (5' 1 1") | Wt 103.9 kg (229 lb 0.9 oz) | SpO2 100% | BMI 31.95 kg/m | BSA 2.28 m 24 Hour Vital Min/Max: Systolic (24hrs), Av , Min:109 , Max:148 Diastolic (24hrs), Av, Min:66, Max:95 Pulse Min: 74 Max: 85 Temp Min: 36.5 C (97.7 F) Max: 37 C (98.6 F) Resp Min: 16 Max: 18 SpO2 Min: 100 % Max: 100 % Intake/Output 08/20 701 - 08/21 0700 08/21 07 - 08/22 0708/22 07 - 08/23 0700 P.O. 3912 790 I.V. 50 30 10 Other 3195 488 IV Piggyback 100 200 Total Intake 7257 1508 10 Urine (mL/kg/hr) 2425 (1) 1150 (0.5) Drains (mL/kg/hr) Other 0 0 Total Output(mL/kg) 2425 (23.3) 1150 (11.1) Net +4832 +358 +10 Urine 1 x Stool 6 x 3 x General: Alert and oriented, No acute distress, sitting in chair, comfortable appearing Eye: Extraocular movements are intact Respiratory: Respirations are non-labored Cardiovascular: Well-perfused Gastrointestinal: Soft, non-tender, non-distended incision healthy appearing with katiuska Neurologic: Alert, Oriented. Musculoskeletal: Normal range of motion. LE 2+ pitting edema Psychiatric: Cooperative. Data Recent Labs 08/20/19 0609 08/21/19 0658 08/21/19 2148 08/22/19 0539 08/22/19 0918 NA 137 -- 132* -- -- 135* -- K 4.8 -- 4.6 -- -- 5.4* -- CL 108 -- 102 -- -- 104 -- BICARB 21 -- 23 -- -- 19* -- BUN 107* -- 129* -- -- 150* -- CR 2.41* -- 2.40* -- -- 2.58* -- GLU 160* < > 223* < > 204* 103* 57* CA 8.5* -- 8.7 -- -- 8.5* -- PO4 5.4* -- 5.0* -- -- 6.8* -- < > = values in this interval not displayed. Recent Labs 08/20/1909 08/21/1958 08/22/19 0539 AST 18 15 13 ALT 101* 82* 59 TBILI 1.5* 1.6* 1.3* AP 39* 44* 32* ALB 3.8 4.5 3.9 TP 6.1* 6.9 5.7* Recent Labs 08/20/19 0609 PREALB 23.0 Recent Labs 08/20/19 0609 08/21/19 0658 08/22/19 0539 AMYLASEPLAS 18* 19* 23* Recent Labs 08/20/1909 08/21/1958 08/22/19 0539 WBC 5.97 10. 6.54 HB 9.6* 11.0* 9.8* HCT 29.5* 34.2* 29.3* PLT 38* 68* 53* NEUTROPERC 82.1* 79.2* 79.5* LYMPHPERC 9.5* 10.2* 11.6* MONOPERC 6.9 7.6 6.1 BASOPERC 0.2 0.2 0.2 EOSPERC 0.5* 1.5 1.2 Recent Labs 08/20/1960808/21/1958 08/22/19 0539 INRPT 1.33* 1.27* 1.31* Assessment and Plan: ASSESSMENT Doug Lawson is a 54 y.o. male with EtOH cirrhosis s/p OLTx on 08/16. He had a prol onged inpatient course prior to transplant; was deconditioned and malnourished. He continues to do well with appropriate graft function. Increasing his nutrition and conditioning. Plan # OLTx OOB, JEANNETTE duenas Asa 325 Continue albumin for kidney function - Immunosuppression. Continue MMF, tacro and prednisone taper. Will use PO MMF indefinitely (aza interacts wit h amiodarone) - Prophylaxis Valgan 450, tmp/smx, fluconazole #KAR Increasing Cr, hyperkalemia this AM and worsening acidosis with hypervolemia. Will continue to monitor. Recheck lytes this afternoon # h/o afib/flutter and wide complex tachycardia intraop Continue PO amiodarone Continue metop # T2DM: difficult to control Lantus 40 units QHS Aggressive sliding scale Endocrinology following # Insomnia Continue seroquel 25 mg QHS with additional dose as needed #Deconditioning PT/OT #Severe protein calorie malnutrition Diabetic diet + supplements Continue calorie counts Albumin scheduled # Dispo Continue acute care Silvia Cid General Surgery R4 Abdominal Transplant Surgery Pager: [phone] Associated attestation - Una Bazan MD - 08/25/2019 11:08 AM PSTTransplant/ Hepatobilia ry Staff Note I saw and evaluated the patient. I agree with the findings and the plan of care as dominick machado in Dr. Cid's note. Doug Lawson is a 54 y.o. male with EtOH and MARS cir rhosis s/p OLTx on 08/16. He had a prolonged inpatient course prior to transplant; was decon ditioned and malnourished. He continues with good allograft function. Increasing his nutriti on and conditioning. SOLO, JEANNETTE hose Asa 325 Continue albumin for kidney function - Immunosuppression. Continue MMF, FK506 with target of 4-6 given renal insufficiency, and prednisone taper. W ill use PO MMF indefinitely (aza interacts with amiodarone) - Prophylaxis Valgan 450, tmp/smx, fluconazole KAR Increasing Cr, hyperkalemia this AM and worsening acidosis with hypervolemia. Will continue to monitor. Recheck lytes this afternoon h/o afib/flutter and wide complex tachycardia intraop Continue PO amiodarone Continue metop T2DM: difficult to control Lantus 40 units QHS Aggressive sliding scale Endocrinology follo wing. Diabetic diet + supplements PT/OT Continue calorie counts Albumin scheduled Dispo Continue acute care UNA BAZAN MD second baller Chief, Abdominal Organ Transplantation - Hepatobiliary Surgery [address] [id number] Pattie Ignacio PA-C - 08/21/2019 6:30 AM PDTFormatting of this note might be different f rom the original. DEPARTMENT OF SURGERY Transplant Surgery Admission Date: 07/17/2019 ( LOS: 35 days ) Attending Provider: Marsha Garcia MD Interval History and Events: Pain well controlled Patient states he is hungry this morning Drain removed yesterday with some leakage overnight that is slowing down this morning Last Vitals: BP 145/78 (BP Location: Right upper arm, Patient Position: Sitting) | Pulse 7 8 | Temp 36.4 C (97.5 F) (Oral) | Resp 18 | Ht 1.803 m (5' 11") | Wt 103.9 kg (229 l b 0.9 oz) | SpO2 100% | BMI 31.95 kg/m | BSA 2.28 m 24 Hour Vital Min/Max: Systolic (24hrs), Av , Min:135 , Max:153 Diastolic (24hrs), Av, Min:75, Max:86 Pulse Min: 77 Max: 89 Temp Min: 36.3 C (97.3 F) Max: 36.6 C (97.9 F) Resp Min: 18 Max: 18 SpO2 Min: 99 % Max: 100 % Intake/Output 08/19 701 - 08/20 0700 08/20 07 - 08/21 0700 P.O. 940 3912 I.V. 96.4 50 Other 587.5 2295 IV Piggyback 300 100 Total Intake 1923.9 6357 Urine (mL/kg/hr) 1555 (0.6) 2425 (1) Drains (mL/kg/hr) 40 (0) Other 0 0 Total Output(mL/kg) 1595 (15.5) 2425 (23.3) Net +328.9 +3932 Urine 1 x Stool 1 x 6 x General: Alert and oriented, No acute distress, lying in bed, comfortable HENT: Normocephalic, atraumatic, oral mucosa is moist Eye: Extraocular movements are intact Respiratory: Respirations are non-labored Cardiovascular: Well-perfused Gastrointestinal: Soft, non-tender, non-distended Integumentary: Warm, Dry Neurologic: Alert, Oriented. Musculoskeletal: Normal range of motion. LE with edema, JEANNETTE hose on. Psychiatric: Cooperative. Data Recent Labs 08/19/19 0624 08/20/19 0609 08/20/19 1141 08/20/19 1919 08/20/19 2214 NA 140 -- 137 -- -- -- -- K 4.8 -- 4.8 -- -- -- -- CL 108 -- 108 -- -- -- -- BICARB 22 -- 21 -- -- -- -- BUN 97* -- 107* -- -- -- -- CR 2.17* -- 2.41* -- -- -- -- GLU 140* < > 160* < > 157* 364* 274* CA 8.2* -- 8.5* -- -- -- -- PO4 6.8* -- 5.4* -- -- -- -- < > = values in this interval not displayed. Recent Labs 08/19/1962308/20/19608 AST 23 18 ALT 122* 101* TBILI 1.5* 1.5* AP 33* 39* ALB 3.5 3.8 TP 5.4* 6.1* Recent Labs 08/20/19608 PREALB 23.0 Recent Labs 08/19/1962308/20/19608 AMYLASEPLAS 15* 18* Recent Labs 08/19/1962308/20/19608 WBC 3.91 5.97 HB 8.6* 9.6* HCT 25.8* 29.5* PLT 25* 38* NEUTROPERC 83.0* 82.1* LYMPHPERC 8.7* 9.5* MONOPERC 7.2 6.9 BASOPERC 0.0 0.2 EOSPERC 0.3* 0.5* Recent Labs 08/19/1962308/20/19608 INRPT 1.37* 1.33* Assessment and Plan: ASSESSMENT Doug Lawson is a 54 y.o. male with EtOH cirrhosis s/p OLTx on 08/16. He had a prol onged inpatient course prior to transplant; was deconditioned and malnourished. He continues to do well with appropriate graft function. Increasing his nutrition and conditioning. Plan # OLTx OOB, JEANNETTE hose Asa 325 Continue albumin for kidney function and low PO Drain removed; leaking slowing, CTM - Immunosuppression. Continue MMF, tacro and prednisone taper. Will use PO MMF indefinitely (aza interacts wit h amiodarone) - Prophylaxis Valgan 450, tmp/smx, fluconazole # h/o afib/flutter and wide complex tachycardia intraop Continue PO amiodarone Continue metop # T2DM: difficult to control NPH 26 units AM and PM Lantus 40 units QHS Aggressive sliding scale Endocrinology following # Insomnia Continue seroquel 25 mg QHS with additional dose as needed #Deconditioning PT/OT #Severe protein calorie malnutrition Diabetic diet + supplements Continue tube feeds; at goal of 77 ml/hr for 24hr/day; transition to nocturnal feeds potent ially remove DHT when calorie counts improved Continue calorie counts Albumin scheduled # Dispo Continue acute care Pattie Ignacio PA-C Abdominal Transplant Surgery Pager: [phone] nox Nisreen JOHNSON - 08/20/2019 10:54 AM PDTAbdominal Transplant Surgery Progress Note Attending Physician: Marsha Garcia MD ID: Doug Lawson 54 y.o. s/p OLTx on 08/16 for ESLD 2/2 alcohol abuse complicated b y hepatic encephalopathy, spur cell anemia requiring chronic transfusions resulting in iron overload, afib, and KAR on CKD. Pt admitted on 07/17/2019 and optimized with DHT placement du e to encephalopathy Subjective Got a few hours of sleep with seroquel More oriented but still slightly confused Transitioning off insulin ggt to Lantus and NPH Tolerating tube feeds, increased to goal 75 cc/hr Diabetic diet; increased PO to 774 calories and 26 grams of protein Walking Remove YA today - leaking around site Cr increasing - Continue scheduled albumin Labs, medications and results reviewed in EMR Objective: Last Vitals: BP 141/77 (BP Location: Left upper arm, Patient Position: Lying on back) | Pu lse 89 | Temp 36.5 C (97.7 F) (Oral) | Resp 18 | Ht 1.803 m (5' 11") | Wt 102.6 kg ( 226 lb 3.1 oz) | SpO2 100% | BMI 31.55 kg/m | BSA 2.27 m 24 Hour Vital Min/Max: Systolic (24hrs), Av , Min:132 , Max:141 Diastolic (24hrs), Av, Min:70, Max:84 Pulse Av.6 Min: 64 Max: 79 Temp Av.8 C (98.2 F) Min: 36.3 C (97.3 F) Max: 37.1 C (98.8 F) Resp Av.2 Min: 11 Max: 23 SpO2 Av.6 % Min: 98 % Max: 100 % Physical Exam: General: awake, alert, no acute distress, comfortable appearing with DHT in place Resp: breathing comfortably on RA Abd: soft, distended. Staple incision with dressing in place. Scant SS drainage, bandage ar ound drain site wet with SS fluid Ext: Warm and well perfused, 2+ edema ASSESSMENT Doug Lawson is a 54 y.o. male with EtOH cirrhosis s/p OLTx on 08/16. He had a prol onged inpatient course prior to transplant; was deconditioned and malnourished. He continues to do well with appropriate graft function. Increasing his nutrition and conditioning. Plan # OLTx OOB, JEANNETTE hose Asa 325 Continue albumin for kidney function and low PO Remove drain today - Immunosuppression. Continue MMF, tacro and prednisone taper. Will use PO MMF indefinitely (aza interacts wit h amiodarone) - Prophylaxis Valgan 450, tmp/smx, fluconazole # h/o afib/flutter and wide complex tachycardia intraop Continue PO amiodarone Continue metop # T2DM: difficult to control Transitioning off ggt overnight NPH 12 q8 and Lantus 40 HS Endocrinology following # Insomnia Continue seroquel 25 mg QHS with additional dose as needed #Deconditioning PT/OT #Severe protein calorie malnutrition Diabetic diet + supplements Continue tube feeds; at goal of 77 ml/hr for 24hr/day Continue calorie counts Albumin scheduled # Dispo Continue acute care Nisreen Chakraborty PA-C Abdominal Organ Transplant Pattie Sommer PA- C - 08/19/2019 8:12 AM PDTAbdominal Transplant Surgery Progress Note Attending Physician: Marsha Garcia MD ID: Doug Lawson 54 y.o. s/p OLTx on 08/16 for ESLD 2/2 alcohol abuse complicated b y hepatic encephalopathy, spur cell anemia requiring chronic transfusions resulting in iron overload, afib, and KAR on CKD. Pt admitted on 07/17/2019 and optimized with DHT placement du e to encephalopathy Subjective Transferred to yesterday evening Got a few hours of sleep with seroquel Somewhat confused this AM per nursing Still on insulin drip but stable Tolerating tube feeds Diabetic diet; only 150 calories PO yesterday as patient declined lunch and dinner. Pain under control Labs, medications and results reviewed in EMR Objective: Last Vitals: BP 131/77 (BP Location: Right upper arm, Patient Position: Lying on back) | P ulse 91 | Temp 36.4 C (97.5 F) (Oral) | Resp 18 | Ht 1.803 m (5' 11") | Wt 102.6 kg (226 lb 3.1 oz) | SpO2 98% | BMI 31.55 kg/m | BSA 2.27 m 24 Hour Vital Min/Max: Systolic (24hrs), Av , Min:124 , Max:141 Diastolic (24hrs), Av, Min:72, Max:91 Pulse Av.6 Min: 64 Max: 79 Temp Av.8 C (98.2 F) Min: 36.3 C (97.3 F) Max: 37.1 C (98.8 F) Resp Av.2 Min: 11 Max: 23 SpO2 Av.6 % Min: 98 % Max: 100 % Physical Exam: General: awake, alert, no acute distress, comfortable appearing with DHT in place Resp: breathing comfortably on RA Abd: soft, distended. Staple incision with dressing in place. Drain serous 1075 mL/24 Ext: Warm and well perfused, 2+ edema ASSESSMENT Doug Chan Lawson is a 54 y.o. male with EtOH cirrhosis s/p OLTx on 08/16. He had a prol onged inpatient course prior to transplant; was deconditioned and malnourished. He continues to do well with appropriate graft function. Increasing his nutrition and conditioning. Plan # OLTx OOB, JEANNETTE duenas Asa Empty drain once per shift - Immunosuppression. Continue MMF, tacro and prednisone taper. Will use PO MMF - Prophylaxis Valgan 450, tmp/smx, fluconazole # h/o afib/flutter and wide complex tachycardia intraop Continue PO amiodarone Continue metop # T2DM: difficult to control Cont insulin gtt Endocrinology following # Insomnia Continue seroquel 25 mg QHS with additional dose as needed #Deconditioning PT/OT #Severe protein calorie malnutrition Diabetic diet + supplements Continue tube feeds; advance to goal of 70 ml/hr for 24hr/day; increase by 15 ml every 4-6 hrs Continue calorie counts # Dispo Continue acute care Pattie Ignacio PA-C Abdominal Organ Transplant Homero Burgess MD - 08/18/2019 1:16 PM PDTAbdominal Transplant Surgery Progress Note Attending Physician: Marsha Garcia MD ID: Doug Chan Lawson 54 y.o. s/p OLTx on 08/16 for ESLD 2/2 alcohol abuse complicated b y hepatic encephalopathy, spur cell anemia requiring chronic transfusions resulting in iron overload, afib, and KAR on CKD. Pt admitted on 07/17/2019 and optimized with DHT placement du e to encephalopathy Subjective Pt with no complaints Pain under control + flatus Tolerating CLD and protein shakes Ambulated Labs, medications and results reviewed in EMR Objective: Last Vitals: BP 129/82 (BP Location: Right upper arm, Patient Position: Lying on back) | P ulse 77 | Temp 36.5 C (97.7 F) (Oral) | Resp 12 | Ht 1.803 m (5' 10.98") | Wt 98.2 k g (216 lb 7.9 oz) | SpO2 96% | BMI 30.21 kg/m | BSA 2.22 m 24 Hour Vital Min/Max: Systolic (24hrs), Av , Min:124 , Max:144 Diastolic (24hrs), Av, Min:76, Max:91 Pulse Av.6 Min: 64 Max: 79 Temp Av.8 C (98.2 F) Min: 36.3 C (97.3 F) Max: 37.1 C (98.8 F) Resp Av.2 Min: 11 Max: 23 SpO2 Av.6 % Min: 98 % Max: 100 % Physical Exam: General: awake, alert, no acute distress, comfortable appearing with DHT in place Resp: breathing comfortably on RA Abd: soft, distended. Staple incision with dressing in place. Drain serous 1075 mL/24 Ext: Warm and well perfused, 2+ edema ASSESSMENT Doug Lawson is a 54 y.o. male with EtOH cirrhosis s/p OLTx on 08/16. He continues to do well with appropriate graft function. Overall clinically doing well. Plan # OLTx D/c Payton Maintain DHT; advance to goal TF Regular diet + supplements OOB, JEANNETTE hose Asa Empty drain once per shift # Immunosuppression. CMV -/+ Continue MMF, tacro and prednisone taper. Will use PO MMF Ganciclovir --> Valgan 450, tmp/smx, fluconazole # h/o afib/flutter and wide complex tachycardia intraop Continue PO amiodarone Continue metop # T2DM: difficult to control Cont insulin gtt # Dispo [facility] W. Dano Cid MD General Surgery R4 Associated attestation - Marsha Garcia MD - 08/20/2019 8:00 AM PDTClinically well but w ith some mild KAR Cont albumin Advance tube feeds Good allograft function I have personally managed patient immunosuppression tac increase today/pred taper/cellcept I saw and evaluated the patient. I agree with the findings and the plan of care as dominick machado in the resident s note. MARSHA GARCIA MD [facility] [id number] [place] [address] Homero Cid MD - 08/17/2019 8:40 AM PDTAbdominal Transplant Surgery Progress Note Attending Physician: Marsha Garcia MD ID: Doug Lawson 54 y.o. s/p OLTx on 08/16 for ESLD 2/2 alcohol abuse complicated b y hepatic encephalopathy, spur cell anemia requiring chronic transfusions resulting in iron overload, afib, and KAR on CKD. Pt admitted on 07/17/2019 and optimized with DHT placement du e to encephalopathy Subjective Feeling well this AM Has tolerated small sips of clears Labs, medications and results reviewed in EMR Objective: Last Vitals: BP 121/67 | Pulse 78 | Temp 37.1 C (98.8 F) | Resp 12 | Ht 1.803 m (5' 10.98") | Wt 98.2 kg (216 lb 7.9 oz) | SpO2 99% | BMI 30.21 kg/m | BSA 2.22 m 24 Hour Vital Min/Max: Systolic (24hrs), Av , Min:106 , Max:152 Diastolic (24hrs), Av, Min:58, Max:96 Pulse Av.6 Min: 64 Max: 79 Temp Av.8 C (98.2 F) Min: 36.3 C (97.3 F) Max: 37.1 C (98.8 F) Resp Av.2 Min: 11 Max: 23 SpO2 Av.6 % Min: 98 % Max: 100 % Physical Exam: General: awake, alert, no acute distress, comfortable appearing with DHT in place Resp: breathing comfortably on RA Abd: soft, distended. Staple incision with some weaping. Drain serous 780 mL/24 Ext: Warm and well perfused, 2+ edema ASSESSMENT Doug Lawson is a 54 y.o. male with EtOH cirrhosis s/p OLTx on 08/16. Doing well overall with good graft function and appropriate for transfer to the [facility] Plan # OLTx D/c a line and cordis Maintain Payton Maintain DHT OK for CLD D/c IVF # Immunosuppression. CMV -/+ Continue MMF, tacro and prednisone taper Ganciclovir and will eventually transition to valgan 450, tmp/smx, fluconazole # h/o afib/flutter and wide complex tachycardia intraop Continue PO amiodarone Continue metop # Dispo [facility] W. Dano Cid MD General Surgery R4 Associated attestation - Marsha Garcia MD - 08/17/2019 3:01 PM PDTClinically well post txp Good allograft funciton No evidence of bleeding Heart rhythm stabilized I have personally managed patient immunosupression tac/cellcept/pred taper I saw and evaluated the patient. I agree with the findings and the plan of care as documen jeannette in the resident s note. MARSHA GARCIA MD [address] [place] [address] Zunilda Gamez, ACNP - 08/17/2019 6:38 AM PDT Trauma / Surgical Critical Care Service ID: [id number] with ESLD (EtOH cirrhosis, MELD 34) c/p HE, spur cell anemia, iron overload with ca rdiac deposits, Afib, KAR on CKD, malnutrition Procedures: 08/15 OLTx Allergies Allergies Allergen Reactions Doxycycline Hives and Rash Home Medication Prior to Admission Medications Prescriptions deferiprone 500 mg oral tablet Sig: Take 4 tablets (2,000mg) by mouth three times daily. furosemide 20 mg oral tablet Sig: Take 2 tablets by mouth two times daily. lactulose 10 gram/15 mL oral solution Sig: Take 15 mL by mouth two times daily. metoprolol succinate 50 mg oral tablet extended release 24 hr Sig: Take 0.5 tablets by mouth once daily. spironolactone 100 mg oral tablet Sig: Take 1 tablet by mouth once daily. Facility-Administered Medications: None Labs: Pertinent labs were reviewed in [facility]. Imaging: Pertinent imaging was reviewed in [facility]. Physical Exam: BP 121/67 | Pulse 75 | Temp 37.1 C (98.8 F) | Resp 12 | Ht 1.803 m (5' 10.98") | W t 98.2 kg (216 lb 7.9 oz) | SpO2 100% | BMI 30.21 kg/m | BSA 2.22 m Gen: Chronically ill appearing man, post op Eyes: Icteric. HENT: NC. CV: NSR. Palp distal pulses. BLE edema. RIJ CVC. RIJ introducer. Art line. Resp: lung gr CTA bilaterally. RA GI: Right transverse incision closed with katiuska. Soft, Right drain to bulb suction, SS ou tput : Payton with rust colored urine MSK: Atraumatic. Skin: No rashes, lesions. Jaundiced Neuro: Awake and interactive Summary: Doug Lawson is a 54 year old man with ESLD (EtOH, MELD 34) who presented s/p OLTx. His intraoperative course was complicated by tachyarrhythmia for which he was reloaded with amio and given IV lidocaine. He extubated without issue. Only required one of FFP and one P RBC in the post op recovery. He is hemodynamically stable and likely to transfer to the [facility] today. Plans: Neurology: Acute post op pain: ? Oxy ? Apap 2 gm Toxic metabolic encephalopathy: -Clearing -Likely attributed to sedation, anaesthesia and HE -Minimize centrally acting medications HEENT: Pulmonary/Thoracic: Acute post op respiratory insufficiency: ? Extubated without issue ? Continue pulmonary hygiene with IS and OOB at tolerated Cardiovascular: Tachyarrhythmia: ? Per anaesthesia report he had tachyarrhythmia in OR with runs of Vtach ? Cardiology involved for SVT, RBBB, AFib ? Continue metoprolol and amiodarone ? Optimize electrolytes Hypotension: ? Resolved ? Likely related to acute hemorrhagic hypovolemia from intraoperative losses ? Received 6:3:1 colloid resuscitation, no cell saver ? Off vasopressors, ? Minimal transfusion requirements Gastrointestinal/Abdominal: ESLD (Alcoholic Cirrhosis with pre op MELD 34) : ? TX s/p OLTx Immunosuppression: tacrolimus, prednisone, MMF Prophy: Viral: ValGCV Fungal: fluconazole weekly ? PJP and Toxo: tmp/smx ? Post op liver transplant pathway Fluids/Electrolytes/Nutrition: Anasarca: -OOB as able -JEANNETTE hose Severe protein-calorie malnutrition: -Maintain DHT for trophic feeds -Albumin repletion for 48 hours -Clear liquid diet now Renal: KAR on CKD: -KAR likely prerenal. Patient at high risk for HRS, also underlying kidney dysfunction 2/2 nephropathy, hemochromatosis. -Maintain payton, rust colored urine likely due to iron chelator Hematology: Spur cell anemia with iron overload: ? Hematology involved ? Continue home [id number] mg TID when directed by Tx Acute blood loss anemia: -EBL 2L -Received 6:3:1 intra op -Received 1 PRBC in ICU Acute coagulopathy -Likely consumptive and uremic from surgery -INR 1.7, no transfusion requirement Infectious Diseases: Post transplant pathway Endocrinology: Acute stress induced hyperglycemia: ? Endotool with stable requirements Musculoskeletal/Skin: Deconditioning: ? PT F: Clears and trophic feeds A: Oxy S: None T: SCDs H: >30 degrees U: PPI G: Endotool Y: per Tx team B: Available I: Cordis, CVC, Art line, DHT, YA, Payton D: Remove all lines from RIJ, remove art line CODE: Full Disposition: Doing well, likely transfer to the [facility] after removing introducer. I spent 38 minutes of critical care admitting Mr. Lawson to the ICU for multiorgan support JESSICA STRICKLAND TSICU Associated attestation - Seth Messina MD - 08/18/2019 7:41 AM PDTI saw and examined Doug Lawson ([id number]) with the ICU team on 08/17/2019. I agree with the assessment and p jailyn as outlined in this note and participated in the planning of care. I have personally rev iewed all pertinent labarotory findings, radiographs, and physiologic parameters. I personal ly performed pertinent parts of the physical examination and personally formulated the plan with the TSICU team. May transfer to [facility]. Continue PT/OT for mobility training. Will continue monitor adequate pain control and incentive spirometry for pulmonary toliet. Transplant ID following and rev iewed and immunosuppression schedule. assistant business manager for disposition planning and placement. Seth Messina MD [employer] Division of Trauma and Critical Care Homa Vargas MD - 08/16/2019 3:04 PM PDTArrhythmias intra-op with reported wide com plex tachycardia that resolved. No strips or EKG available of the event. Unable to comment o n changes without that available for interpretation. Patient with history of afib/flutter RV R. If recurs please call back and we would be happy to help. Felisha Sommer MD - 08/16/2019 8:16 AM PDTFormat ting of this note might be different from the original. . Acute Care Surgery: Surgical Critical Care Progress Note Attending Medical Decision Making Doug Lawson is a 54 y.o. male admitted to the TSICU following OLTx. They are criti guerda ill with the following diagnosis and my plans for today follow: Acute post-operative pain: multimodal pain control, Acute hypoxic respiratory insufficiency: wean to PSV and trial extuabtion acute blood loss anemia with underlying iron overload: related to operative blood loss, continue to monitor closely, in the setting of chronic spur cell anemia may require addition al transfusions, but the same guidelines should apply Tachyarrhythmia (a. Fib vs flutter): restarting amiodarone and will use lidocaine / card ioversion as needed pending nature of his arrythmia and stability. Severe protein calorie malnutrition: PO vs TF to goal I examined this patient on 08/16/2019. I have personally reviewed all pertinent labarotory findings, radiographs, and physiologic parameters. I personally performed pertinent parts o f the physical examination and personally formulated the plan with the multidisciplinary I [facility] team. I spent a total of 35 minutes of critical care time exclusive of teaching and procedures. Felisha Arroyo MD [employer] Division of Trauma, Critical Care and Acute Care Surgery Office: [phone] Pager: [phone] This has been electronically signed by Felisha Arroyo MD, 08/16/2019 at 8:16 AM Marsha Robles MD - 08/15/2019 3:43 PM PDTPatient seen and eval with resident team today Full note to follow Patient now primary for liver transplant to go this evening He is seen in the presence of his sister and his mother who are his support. Risk of liver transplant reviewed by me including , bleeding, leak, thrombosis, strict ure, need for reoperation and retransplant. We discussed his surgical high risk given his he art findings which have been extensively reviewed by the multidisciplinary Team and he is t hought to be appropriate to proceed with tranplant We also discussed the PHS increase risk of the donor and risk of disease transmission and h e is consented to receive PHS increase risk organ Will proceed to OR tonight if donor organ suitable NPO now MARSHA GARCIA MD [address] [place] [address] Maryam Handley MD - 07/22 9:37 AM PDT Hepatology Inpatient Consult Follow-Up Note Blood type: A+ Status:Listed Listed MELD: 32 (08/13) Biologic MELD: 32 A/P: Mr. Lawson is a 54 yo man with spur cell anemia requiring chronic transfusions c/b iron over load, EtOH cirrhosis c/b ascites.Blood type A+, listed for liver transplant,transferred for AMS and falls found to have hyperglycemia and renal insufficiency, hospital course compl icated by SVT requiring ICU transfer and amiodarone drip. 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 Transplant infectious disease hasalso weighed in,with no e/o infection/sepsis as etiology of SVT/afib. In regard to his tachyarrythmia, his cardiac f unction appears to be compensated and is not a contraindication for transplantper se. Has been titrated off amiodarone GTT and downgraded to medicine floors. Tachyarrythmia has been wellcontrolled with PO amiodarone and metoprolol and perdiscussions withEP attending Elizabeth Mcintyre, hisSVTs should not preclude pt from transplant and can be managed in the intra/ clara-operative period. If difficult to control despite amio/metop, theycould also offer ab lative therapies prior to transplant. Patient has several risk factors for post-LT heart failure though, including ETOH as etiolo gy of heart failure, depressed EF 55-60% (low for hyperdynamics of cirrhosis patient), and i tom deposition in myocardium.Acknowledging these risks, consensus was to proceed with OLT. After discussion with transplantanesthesia and cardiology, will continue amiodarone for h istachyarrythmia. While patient awaits for OLT, would continue to optimize his nutrition w ith enteral feeding and continue physical therapy/occupationatal therapy. Recommendations: - f/u blood cultures x2 - continueDHT feedingfor supplemental nutrition - continue PT/OT to improve functional status - continue rifaximin/lactulose for 3-4 BMs/day - hold off on blood transfusion unless symptomatic or if impending LT We will continue to follow along with you. Please page with any questions or concerns. This patient was staffed with , who agrees with above. Maryam Baldwin MD [facility] Transplant Hepatology Fellow IE/S: - Complaining of discomfort with the leg wraps, placed yesterday - No further fevers O: Medications: Medications Scheduled Medication Dose/Rate, Route, Frequency Last Action amiodarone (CORDARONE) tablet 200 mg 200 mg, oral, DAILY Given: 08/15 753 cholecalciferol (VITAMIN D3) capsule 50,000 Units 50,000 Units, oral, Q7D Given: 08/14 170 0 deferiprone tab 2,000 mg 2,000 mg, oral, TID Given: 08/14 2234 insulin lispro (HUMALOG) injection 1-16 Units 4 Units, subQ, QID Given: 08/15 752 insulin lispro (HUMALOG) injection 15 Units 15 Units, subQ, TID W/MEALS Given: 08/15 751 insulin NPH (HUMULIN N) injection 25 Units 25 Units, subQ, BEFORE BREAKFAST Given: 08/15 0 651 insulin NPH (HUMULIN N) injection 66 Units 66 Units, subQ, HS Given: 08/14 2255 lactulose (ENULAC) 10 g 10 g, oral, QPM Given: 08/14 2220 lactulose (ENULAC) liquid 20 g 20 g, oral, QAM Given: 08/14 1006 magnesium oxide (MAG-OX) tablet 400 mg 400 mg, oral, DAILY Given: 08/14 1006 metoprolol tartrate (LOPRESSOR) tablet 6.25 mg 6.25 mg, oral, BID Given: 08/14 2224 midodrine (PROAMITINE) tablet 10 mg 10 mg, oral, TID Given: 08/15 753 multivitamin (THERA VITAMIN) 1 tablet 1 tablet, oral, DAILY Given: 08/14 1006 rifAXIMin (XIFAXAN) tablet 550 mg 550 mg, oral, BID Given: 08/14 2225 PRN Medication Dose/Rate, Route, Frequency Last Action dextrose 50 % in water IV 25 mL 25 mL, IV, PRN Ordered diclofenac (VOLTAREN) 1 % gel 4 g 4 g, top, QID PRN Given: 07/23 931 glucagon (GLUCAGEN) injection 1 mg 1 mg, IM, PRN Ordered glucose chewable tablet 16 g 16 g, oral, PRN Ordered lactulose (ENULAC) 10 g 10 g, oral, Q2H PRN Given: 08/14 1810 melatonin tablet 3 mg 3 mg, oral, HS PRN Given: 08/13 2119 ondansetron (ZOFRAN) tablet 4 mg 4 mg, oral, Q8H PRN Given: 08/05 0245 polyethylene glycol (MIRALAX) packet 8.5 g 8.5 g, oral, DAILY PRN Ordered saliva substitute (MOUTH KOTE) spray No Dose/Rate, oral, PRN Ordered Vitals: Last 24 hour min/max Temp: 36.7 C (98.1 F) Temp Min: 36.5 C (97.7 F) Max: 36.9 C (98.4 F) Pulse: 65 Pulse Min: 57 Max: 65 Resp: 18 Resp Min: 16 Max: 18 BP: 103/49 BP Min: 99/47 Max: 111/55 SpO2: 100 % SpO2 Min: 100 % Max: 100 % Body mass index is 30.35 kg/m. Exam: Gen:NAD HEENT: DHT in R nares c/d/i CV:RRR+ holosystolic murmur Abd: Soft, NT,tympanic to percussion and moderately distended Neuro: no asterixis Labs: Recent Labs 08/13/1944008/14/19 0547 08/15/19 0454 WBC 4.39 4.37 4.69 HB 7.0* 7.1* 6.7* HCT 21.1* 22.0* 21.0* PLT 55* 60* 59* Recent Labs 08/13/1944008/14/19 0547 08/15/19 0454 08/15/19 0639 08/15/19 0741 NA 135* -- 135* -- 134* -- -- K 4.3 -- 4.6 -- 4.6 -- -- CL 106 -- 107 -- 107 -- -- BICARB 20* -- 23 -- 19* -- -- BUN 62* -- 62* -- 60* -- -- CR 1.22 -- 1.16 -- 1.18 -- -- GLU 208* < > 144* < > 197* 202* 227* CA 9.1 -- 8.6 -- 8.2* -- -- AST 109* -- 91* -- 93* -- -- ALT 58 -- 57 -- 53 -- -- AP 206* -- 211* -- 222* -- -- TBILI 10.7* -- 11.7* -- 11.0* -- -- TP 6.6 -- 6.5 -- 6.2* -- -- ALB 3.2* -- 3.0* -- 2.8* -- -- ANIONGAP 9 -- 5 -- 8 -- -- ANIONALBCOR 11 -- 7 -- 11 -- -- < > = values in this interval not displayed. Labs: Lab Results Component Value Date MG 2.2 08/15/2019 Lab Results Component Value Date INRPT 3.46 (H) 08/15/2019 Imaging and Other Studies: 07/17/2019 US with Dopplers IMPRESSION: Cirrhotic liver morphology with findings of portal hypertension. Unremarkable Doppler ultrasound without evidence of venous thrombosis. Cholelithiasis without evidence of cholecystitis. MELD-Na score: 32 at 08/15/2019 4:54 AM MELD score: 31 at 08/15/2019 4:54 AM Calculated from: Serum Creatinine: 1.18 mg/dL at 08/15/2019 4:54 AM Serum Sodium: 134 mmol/L at 08/15/2019 4:54 AM Total Bilirubin: 11.0 mg/dL at 08/15/2019 4:54 AM INR(ratio): 3.46 INR at 08/15/2019 4:54 AM Age: 54 years Eliane Wall MD - 08/15/2019 7:31 AM PDT GENERAL MEDICINE PROGRESS NOTE Attending Physician: Jackie Hernadez MD Hospital Day: 29 ID: ESLD, afib, spur cell anemia, secondary hemochromatosis, KAR on CKD 24h Events: Hgb 6.7 this morning, holding off on transfusion for now unless symptomatic Subjective: MVI is bothering his stomach, wondering why he has to take it. Agreeable to try chewable MV I. Says the wraps on legs (jeannette hose wouldn't fit) are helping with his swelling. Denies abdo hua pain or nausea, tolerate TFs well, reporting continued improvement with diarrhea which was an issue a few days ago. Reporting multiple BMs daily although not well charted in I&Os . Active Medications: amiodarone (CORDARONE) tablet 200 mg, 200 mg, oral, DAILY cholecalciferol (VITAMIN D3) capsule 50,000 Units, 50,000 Units, oral, Q7D deferiprone tab 2,000 mg, 2,000 mg, oral, TID dextrose 50 % in water IV 25 mL, 25 mL, intravenous, PRN diclofenac (VOLTAREN) 1 % gel 4 g, 4 g, topical, QID PRN glucagon (GLUCAGEN) injection 1 mg, 1 mg, intramuscular, PRN glucose chewable tablet 16 g, 16 g, oral, PRN insulin lispro (HUMALOG) injection 1-16 Units, 1-16 Units, subcutaneous, QID insulin lispro (HUMALOG) injection 15 Units, 15 Units, subcutaneous, TID W/MEALS insulin NPH (HUMULIN N) injection 25 Units, 25 Units, subcutaneous, BEFORE BREAKFAST insulin NPH (HUMULIN N) injection 66 Units, 66 Units, subcutaneous, HS lactulose (ENULAC) 10 g, 15 mL, oral, QPM lactulose (ENULAC) 10 g, 15 mL, oral, Q2H PRN lactulose (ENULAC) liquid 20 g, 30 mL, oral, QAM magnesium oxide (MAG-OX) tablet 400 mg, 400 mg, oral, DAILY melatonin tablet 3 mg, 3 mg, oral, HS PRN metoprolol tartrate (LOPRESSOR) tablet 6.25 mg, 6.25 mg, oral, BID midodrine (PROAMITINE) tablet 10 mg, 10 mg, oral, TID multivitamin (THERA VITAMIN) 1 tablet, 1 tablet, oral, DAILY ondansetron (ZOFRAN) tablet 4 mg, 4 mg, oral, Q8H PRN polyethylene glycol (MIRALAX) packet 8.5 g, 8.5 g, oral, DAILY PRN rifAXIMin (XIFAXAN) tablet 550 mg, 550 mg, oral, BID saliva substitute (MOUTH KOTE) spray, , oral, PRN Physical Exam: Last 24 hour min/max Temp: 36.7 C (98.1 F) Temp Min: 36.5 C (97.7 F) Max: 36.9 C (98.4 F) Pulse: 65 Pulse Min: 57 Max: 65 Resp: 18 Resp Min: 16 Max: 18 BP: 103/49 BP Min: 99/47 Max: 111/55 SpO2: 100 % SpO2 Min: 100 % Max: 100 % Body mass index is 30.35 kg/m. Intake/Output Summary (Last 24 hours) at 08/15/2019 0731 Last data filed at 08/15/2019 0500 Gross per 24 hour Intake 2680 ml Output 825 ml Net 1855 ml General Appearance:Jaundiced, NAD, sitting up in bed. HEENT:Scleral icterus, EOMI, MMM. DHT in nose. Respiratory:CTAB, no wheeze or crackles Cardiovascular: RRR, 2/6 holosystolic murmur loudest at left sternal border Gastrointestinal:soft, non-tender, no rebound, no guarding Musculoskeletal:3+ pitting edema to mid delgadillo, sacral edema Skin:Jaundiced, bronzed complexion. Gynecomastia. Telangectasias on abdomen and chest. Neurologic:AAOx3. Speech occasionally slurred (this is his baseline) but comprehensible a nd linear. Labs: Chemistries: Last 72 Hours (or 3 results) - Refreshable Recent Labs 08/13/19 0441 08/14/19 0547 08/14/19 2244 08/15/19 0454 08/15/19 0639 NA 135* -- 135* -- -- 134* -- K 4.3 -- 4.6 -- -- 4.6 -- CL 106 -- 107 -- -- 107 -- BICARB 20* -- 23 -- -- 19* -- BUN 62* -- 62* -- -- 60* -- CR 1.22 -- 1.16 -- -- 1.18 -- GLU 208* < > 144* < > 176* 197* 202* CA 9.1 -- 8.6 -- -- 8.2* -- MG 2.4 -- 2.3 -- -- 2.2 -- PO4 3.5 -- 3.5 -- -- 3.2 -- < > = values in this interval not displayed. 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 Delirium remains likel y due to ESLD. At top of transplant list. MELD-Na score: 33 on 08/14 -lactulose 30g in AM 15g PM. Goal BMs at 3-4 daily,rifaximin - Anesthesia consulted for preoperative eval and risk assessment - est ASA class 4 - recommended to consider CRRT intra-op if K is difficult to control on floor or if urine output decreases, as well as K monitoring and Mg replacement intraop. - should anticipate significant arrhythmias intra-op even under ideal circumstances that w ould necessitate rapid cardioversion/defibrillation - Daily CMP and INR - to calculate MELD per transplant request - gabo wraps for worsening LE edema, jeannette duenas once able to fit # low grade fever, resolved Temp 100.2 two nights ago which has now resolved, vitals otherwise stable, no new infectiou s symptoms. Bedside ultrasound without drainage pocket in abdomen. - fu 08/14 blood cx #KAR on CKD KAR likely prerenal. Patient at high risk for HRS, also underlying kidney dysfunction 2/2 n ephropathy, hemochromatosis. Urine Na consistently below 10. Have been intermittently been g iving fluids, albumin (most recently 08/07). - strict I&Os - Midodrine 10 mg TID - continue to monitor Cr, slightly improved today # Nutrition - DHT placed 08/01, TFs started 08/02. - TF changed to nocturnal only to promote PO intake during the day. - Nutrition following, appreciate recs. - VitD 66579 U qweekly + multivitamin without iron started 07/31. 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 Of note, A1c wi ll not be accurate due to frequent transfusions for his spur cell anemia. Was on carb control diet but changed to regular to encourage more PO intake. - PM NPH 66 units - AM NPH 25 units - Lispro 15 U TID WM - mealtime SSI moderate - need to refer to outpatient diabetes clinic before DC - freestyle glucometer, lancets, test strips, humalog and humalin pens sent to [facility] to deter mine coverage/copay per DM RN request- appreciate assistance with educating patient on this new diagnosis. - Continue to encourage patient to administer his own insulin. - continue to emphasize importance of managing diabetes # Spur cell anemia # Iron overload Goal hemoglobin will be 8 once transplant imminent, otherwise ok to be a little below 7 unl ess he has new symptoms attributed to anemia or active bleeding. No evidence of bleeding. H DS. Hgb 6.9 but will defer transfusion due to margin of error of lab test as well as iron ov erload. No symptoms of anemia. - Continue home [id number] mg TID. - Zinc 50 mg PO daily. - Transfuse to goal Hgb 8 if transplant imminent, otherwise will hold off on transfusion un less low-mid 6s or new symptoms # Red urine Likely due to iron chelator. -ctm # Afib vs Aflutter May be related to myocardial iron depositionper cardiology. Should he have more episodes of SVT will consider increasing beta-orion and if unable to manage with that would conside r digoxin loading. Currently no recurrent episodes on BB. Hepatology recommend anesthesiolog y consult for operative evaluation given h/o SVT. Anesthesia discussed with cards possibilit y of stopping amio due to risk of hyperkalemia, however there are no alternative medications and as the patient would be precluded from transplant if he goes into afib with RVR, cards recommends continuing amiodarone. - Rate control: metoprolol tartrate 6.25mg BID - Rhythm control: 10g amio load complete 07/26. Maintenance dose 200 mg PO daily - Electrolytes:K > 4, Mg > 2 - Per cards note 08/03 "During his liver transplant surgery, recommend pacer/defibrillator pads on during if that is practical. Could also consider having RIJ sheath in place that cou ld accommodate temp transvenous pacing wire if patient were to develops persistent complete heart block or hemodynamically significant second degree AV block." #Hyperthyroidism, mild - Unlikely to be driving tachycardia - Outpatient follow up Diet:regular + TFs Sleep: Melatonin PRN Dispo: at top of transplant list, awaiting liver. He sister and mother are planning to take turns coming from [place] to provide care, once he g ets his transplant. Surrogate Decision Maker Primary Surrogate Decision Maker Doreen sister [phone] Secondary Surrogate Decision Maker Priyanka Rivera mother CODE:Full This patient was seen and examined by Dr. Hernadez, who agrees with the assessment and plan unless otherwise stated. Eliane Garza MD Internal Medicine [id number] signed by Jackie Hernadez MD at 08/15/2019 8:27 PM PDT Associated attestation - Jackie Hernadez MD - 08/15/2019 8:27 PM PDTGm attending I personally interviewed the patient, performed the tamez elements of the physical examinatio n, and personally formulated the assessment and plan with the resident. See resident Dr. Wally oro's note for details. 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 One elevated temp on at 2300 on 08/13 prompting culture draw; results pending, currently af ebrile. Subjective: Feeling generally well, has been up and walking around. States he did not appreciate the in teraction he had with Hepatology stating that they seem to only come when he is resting whic h have given them a distorted view of his condition. Has had multiple bowel movements over t he last 24 hours, has been eating and sleeping well. Overall status is unchanged as per-repo rted from patient. Active Medications: amiodarone (CORDARONE) tablet 200 mg, 200 mg, oral, DAILY ampicillin injection 1 g, 1 g, intravenous, PREPROCEDURE ONCE cefTRIAXone (ROCEPHIN) injection 1 g, 1 g, intravenous, PREPROCEDURE ONCE cholecalciferol (VITAMIN D3) capsule 50,000 Units, 50,000 Units, oral, Q7D deferiprone tab 2,000 mg, 2,000 mg, oral, TID dextrose 5%-NaCl 0.45% IV infusion, 75 mL/hr, intravenous, CONTINUOUS dextrose 50 % in water IV 25 mL, 25 mL, intravenous, PRN diclofenac (VOLTAREN) 1 % gel 4 g, 4 g, topical, QID PRN glucagon (GLUCAGEN) injection 1 mg, 1 mg, intramuscular, PRN glucose chewable tablet 16 g, 16 g, oral, PRN insulin lispro (HUMALOG) injection 1-16 Units, 1-16 Units, subcutaneous, QID insulin lispro (HUMALOG) injection 15 Units, 15 Units, subcutaneous, TID W/MEALS insulin NPH (HUMULIN N) injection 25 Units, 25 Units, subcutaneous, BEFORE BREAKFAST insulin NPH (HUMULIN N) injection 66 Units, 66 Units, subcutaneous, HS lactulose (ENULAC) 10 g, 15 mL, oral, QPM lactulose (ENULAC) 10 g, 15 mL, oral, Q2H PRN lactulose (ENULAC) liquid 20 g, 30 mL, oral, QAM magnesium oxide (MAG-OX) tablet 400 mg, 400 mg, oral, DAILY melatonin tablet 3 mg, 3 mg, oral, HS PRN methylPREDNISolone sod succ (SOLU-MEDROL) 500 mg in NaCl 0.9 % (NS) IV, 500 mg, intravenous , 6A INTRAPROCEDURE ONCE (DISPENSE) metoprolol tartrate (LOPRESSOR) tablet 6.25 mg, 6.25 mg, oral, BID midodrine (PROAMITINE) tablet 10 mg, 10 mg, oral, TID [START ON 08/16/2019] multivitamin with minerals-folic acid-coenzyme Q10 (aka AQUADEKS) evaristo wable tablet 1 tablet, 1 tablet, oral, DAILY mycophenolate (CELLCEPT) IV 1,000 mg, 1,000 mg, intravenous, 6A INTRAPROCEDURE ONCE (DISPEN SE) ondansetron (ZOFRAN) tablet 4 mg, 4 mg, oral, Q8H PRN polyethylene glycol (MIRALAX) packet 8.5 g, 8.5 g, oral, DAILY PRN rifAXIMin (XIFAXAN) tablet 550 mg, 550 mg, oral, BID saliva substitute (MOUTH KOTE) spray, , oral, PRN Physical Examination: Last Vitals: BP 103/49 (BP Location: Left upper arm, Patient Position: Sitting) | Pulse 65 | Temp 36.7 C (98.1 F) (Oral) | Resp 18 | Ht 1.803 m (5' 11") | Wt 98.7 kg (217 lb 9.5 oz) | SpO2 100% | BMI 30.35 kg/m | BSA 2.22 m 24 Hour Vital Min/Max: Systolic (24hrs), Av , Min:99 , Max:111 Diastolic (24hrs), Av, Min:47, Max:55 Pulse Min: 61 Max: 65 Temp Min: 36.5 C (97.7 F) Max: 36.9 C (98.4 F) Resp Min: 16 Max: 18 SpO2 Min: 100 % Max: 100 % Intake/Output Summary (Last 24 hours) at 08/15/2019 1503 Last data filed at 08/15/2019 1100 Gross per 24 hour Intake 3382 ml Output 700 ml Net 2682 ml General Appearance:Awake, chroniclly ill appearing,alert and oriented, NAD HEENT:Normocephalic, atraumatic. Scleral icterus present.PERRLA, EOMI Lungs: CTAB, no w/r/r, normal respiratory effort. Respiratory:RRR, normal S1 and S2,2/6 holosystolic murmur heard throughout.. Abdomen: soft, nontender, nondistended, +BS Cardiovascular:RRR, normal S1 and S2,2/6 holosystolic murmur heardbest at sternal boa rders. Abdominal:soft, nontender, nondistended, +BS Extremities/MSK:3+ pitting edema to mid delgadillo, sacral edema Skin:Bronze, jaundiced complexion. Leukonychia (Sadiq nails). Spider telangectasia's pres ent on abdomen and chest.Warm, dry. Neurologic:Very mild asterixis.CN II-XII intact. Speech is slurred but appropriate and li near. Psych:Appropriate mood and affect for situation; friendly and cooperative with linear spe ech and thought. Laboratory: CBC with diff last 72 hours (or 3 results) Recent Labs 08/13/19 04408/14/19 0547 08/15/19453 WBC 4.39 4.37 4.69 HB 7.0* 7.1* 6.7* HCT 21.1* 22.0* 21.0* PLT 55* 60* 59* Chemistries last 72 Hours (or 3 results): Recent Labs 08/13/19 04408/14/19 0547 08/15/194 NA 135* 135* 134* K 4.3 4.6 4.6 CL 106 107 107 BICARB 20* 23 19* BUN 62* 62* 60* CR 1.22 1.16 1.18 CA 9.1 8.6 8.2* MG 2.4 2.3 2.2 PO4 3.5 3.5 3.2 AST 109* 91* 93* ALT 58 57 53 AP 206* 211* 222* TBILI 10.7* 11.7* 11.0* TP 6.6 6.5 6.2* ALB 3.2* 3.0* 2.8* Lab Results Component Value Date INRPT 3.46 08/15/2019 Lab Results Component Value Date GLU 227 (H) 08/15/2019 MELD-Na: 32 08/11/19 MELD: 31 08/11/19 Micro: Cultures from 08/14- pending Pending:None Reitan HE Assessment (A): 08/12/19: 96 seconds 08/13/19: 34 seconds Imaging Interpretation: 07/17/2019 US with Dopplers IMPRESSION: Cirrhotic liver morphology with findings of portal hypertension. Unremarkable Doppler ultrasound without evidence of venous thrombosis. Cholelithiasis without evidence of cholecystitis. POCUS: Negative eval for tapable abdominal pocket on 08/13 as per hepatology request. Brief Summary: Mr. 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 Newly diagno sed IDDM. Physical exam consistent with liver disease, he is HDS, has stable labs at current baseline awaiting liver transplant; MELD-32. Assessment and Plan: Assessment and Plan: #ESLD 2/2 ETOH and spur cell anemia requiring frequent transfusion leading to secondary h emachromatosis. # Hepatic encephalopathy Encephalopathywith wax/wane characteristics, greatly improved from time of admission.Ab maria ines assessed for tapable ascites pocket negative on 08/13.HE seemingly stable at current b aseline, pt speaks with linear thought pattern and speech, asterixis is baseline at very mil d tremor. Pt on top of transplant list with [id number] calc on 08/11. Dx:Daily CMP and INR - to calculate MELD daily per transplant request Ttx: - lactulose 45g qd with 30g in AM 15g PM.10g PRN with BM goal at 3-5daily. - Rifaximin 550mg oral QID #KAR on CKD KAR likely prerenal, BUN:Cr62:1.22.Patient at high risk for HRS, also underlyingCKD, hemochromatosis. Urine Na consistently below 10. S/p fluids, albumin (most recently 08/07). - strict I&Os - Midodrine 10 mg TID - continue to monitor Cr # Nutrition Per hepatology, poor nutrition is barrier to transplant, recommended DHT. - DHT placed 08/01, TFs started 08/02. - TF changed to nocturnal only to promote PO intake during the day. - Nutrition following, appreciate recs. - VitD 32948 U qweekly + multivitamin without iron started 07/31. #Diabetes Mellitus New diagnosis this admission., A1c will not be accurate due to frequent transfusions for hi s spur cell anemia. Regulardietto encourage more PO intake. Morning CBG have been elevated in high 200s over pervious week; will make adjustments to in sulin as noted below. - PM NPH 66units - AM NPH 25 units - Lispro 15 U TID WM - D/C SSI - adult educator reference - need to refer to outpatient diabetes clinic before DC - freestyle glucometer, lancets, test strips, humalog and humalin pens sent to [facility] to deter mine coverage/copay per DM RN request- appreciate assistance with educating patient on this new diagnosis. Continue to encourage patient to administer his own insulin. # Spur cell anemia # Iron overload Goal hemoglobin will be 8 once transplant imminent, otherwise ok to be a little below 7 unl ess he has new symptoms attributed to anemia or active bleeding. No evidence of bleeding. Hgb6.9but will defer transfusion due to margin of error of lab test as well as iron over load. No symptoms of anemia. - Continue home [id number] mg TID. - Active type and screen - Transfuse to goal Hgb 8 if transplant imminent, otherwise will hold off on transfusion un less low-mid 6s or new symptoms. # Red urine Differential includes conjugated hyperbilirubinemia though due to cirrhosis this is unlikel y as this condition is more likely to produce unconjugated hyperbilirubinemia. Most likely due to Deferiprone as this is a common side effect. -gerardo NAIK Student [facility] [place] Pager [phone] Associated attestation - Zahida Grimaldo MD - 08/15/2019 3:30 PM PDTAgree with PA Student Nixon rivera's assessment and plan as outlined in note. This is a 54 yo male with ESLD c/b spur cell anemia requiring numerous transfusions with subsequent secondary hemochromatosis who was or iginally admitted with encephalopathy with now prolonged hospital course. Found to have new diagnosis of diabetes thought 2/2 iron deposition. Course c/b by SVT requiring MICU admissio n, now resolved, optimizing strength and nutrition while awaiting liver transplant. No new complaints. Vitals unremarkable. Exam with scleral icterus, jaundice, bronze appeari ng skin, no asterixis, AAOx3. Abdomen soft, NTND. Labs largely stable. No leukocytosis. Stab le anemia. Problems: # ESLD # spur cell anemia # secondary hemochromatosis # h/o SVT, on amiodarone # acute kidney injury # diabetes A/P Continue nocturnal tube feeds and regular daily PO intake to optimize nutrition and work wi th PT while awaiting transplant. Insulin continues to be adjusted with improving blood sugar s. Top of transplant list. Continue lactulose titrated to 3-4 BMs/ day for HE. Zahida Grimaldo MD PGY-3, Internal MedicineUp Health [facility] 08/14/2019 7:40 AM PDTFormatting of this note might b e different from the original. PA Student Progress Note Attending Physician: Jackie Hernadez MD Author: [facility] Day: 28 ID: Doug Lawson is a 54 y.o. malewith ESLD 2/2 ETOH and secondary hemachromatosi s that is a result of chronic spur cell anemia requiring frequent blood transfusions. New in sulin dependant DM diagnosis this admission. Interval hx: One elevated temp during the night at 100.2F with return to baseline since. Otherwise stephanie l vitals. POCUS for ascites at 1600 on 08/13 w/o indication of new or increasing fluid. Increased ray ma lower extremities. Reports one BM over the night. Chart review indicates 5 BMs over last 24 hrs. Subjective: Pt reports current baseline stable mood. States he slept poorly last night but is otherwise doing well, cheerful, looking forward to "another beautiful day." Appetite is maintained, h as been up walking around. Active Medications: amiodarone (CORDARONE) tablet 200 mg, 200 mg, oral, DAILY cholecalciferol (VITAMIN D3) capsule 50,000 Units, 50,000 Units, oral, Q7D deferiprone tab 2,000 mg, 2,000 mg, oral, TID dextrose 50 % in water IV 25 mL, 25 mL, intravenous, PRN diclofenac (VOLTAREN) 1 % gel 4 g, 4 g, topical, QID PRN glucagon (GLUCAGEN) injection 1 mg, 1 mg, intramuscular, PRN glucose chewable tablet 16 g, 16 g, oral, PRN insulin lispro (HUMALOG) injection 1-16 Units, 1-16 Units, subcutaneous, QID insulin lispro (HUMALOG) injection 15 Units, 15 Units, subcutaneous, TID W/MEALS insulin NPH (HUMULIN N) injection 25 Units, 25 Units, subcutaneous, BEFORE BREAKFAST insulin NPH (HUMULIN N) injection 66 Units, 66 Units, subcutaneous, HS lactulose (ENULAC) 10 g, 15 mL, oral, QPM lactulose (ENULAC) 10 g, 15 mL, oral, Q2H PRN lactulose (ENULAC) liquid 20 g, 30 mL, oral, QAM magnesium oxide (MAG-OX) tablet 400 mg, 400 mg, oral, DAILY melatonin tablet 3 mg, 3 mg, oral, HS PRN metoprolol tartrate (LOPRESSOR) tablet 6.25 mg, 6.25 mg, oral, BID midodrine (PROAMITINE) tablet 10 mg, 10 mg, oral, TID multivitamin (THERA VITAMIN) 1 tablet, 1 tablet, oral, DAILY ondansetron (ZOFRAN) tablet 4 mg, 4 mg, oral, Q8H PRN polyethylene glycol (MIRALAX) packet 8.5 g, 8.5 g, oral, DAILY PRN rifAXIMin (XIFAXAN) tablet 550 mg, 550 mg, oral, BID saliva substitute (MOUTH KOTE) spray, , oral, PRN Physical Examination: Last Vitals: BP 116/45 | Pulse 70 | Temp 37 C (98.6 F) | Resp 17 | Ht 1.803 m (5' 1 1") | Wt 96.8 kg (213 lb 6.5 oz) | SpO2 100% | BMI 29.76 kg/m | BSA 2.2 m 24 Hour Vital Min/Max: Systolic (24hrs), Av , Min:102 , Max:116 Diastolic (24hrs), Av, Min:37, Max:52 Pulse Min: 65 Max: 71 Temp Min: 36.8 C (98.2 F) Max: 37.9 C (100.2 F) Resp Min: 16 Max: 18 SpO2 Min: 100 % Max: 100 % Intake/Output Summary (Last 24 hours) at 08/14/2019 0740 Last data filed at 08/14/2019 0556 Gross per 24 hour Intake 1528 ml Output 550 ml Net 978 ml General Appearance:Awake, chroniclly ill appearing,alert and oriented, NAD HEENT:Normocephalic, atraumatic. Scleral icterus present.PERRLA, EOMI Lungs: CTAB, no w/r/r, normal respiratory effort. Respiratory:RRR, normal S1 and S2,2/6 holosystolic murmur heard throughout.. Abdomen: soft, nontender, nondistended, +BS Cardiovascular:RRR, normal S1 and S2,2/6 holosystolic murmur heard best at sternal boar ders. Abdominal:soft, nontender, nondistended, +BS Extremities/MSK:3+ pitting edema to mid delgadillo, sacral edema Skin:Bronze, jaundiced complexion. Leukonychia (Sadiq nails). Spider telangectasia's pres ent on abdomen and chest.Warm, dry. Neurologic:Very mild asterixis.CN II-XII intact. Speech is slurred but appropriate and li near. Psych:Appropriate mood and affect for situation; friendly and cooperative with linear spe ech and thought. Laboratory: CBC with diff last 72 hours (or 3 results) Recent Labs 08/12/19 0637 08/13/1944008/14/19 0547 WBC 3.63 4.39 4.37 HB 7.0* 7.0* 7.1* HCT 21.6* 21.1* 22.0* PLT 56* 55* 60* Chemistries last 72 Hours (or 3 results): Recent Labs 08/12/1937 08/13/1944008/14/19 0547 NA 135* 135* 135* K 4.1 4.3 4.6 CL 105 106 107 BICARB 20* 20* 23 BUN 73* 62* 62* CR 1.29 1.22 1.16 CA 8.7 9.1 8.6 MG 2.3 2.4 2.3 PO4 4.2 3.5 3.5 AST 94* 109* 91* ALT 57 58 57 AP 194* 206* 211* TBILI 10.8* 10.7* 11.7* TP 6.7 6.6 6.5 ALB 3.3* 3.2* 3.0* Lab Results Component Value Date INRPT 3.52 08/14/2019 Recent Labs 08/14/19 0547 GLU 144* MELD-Na: 32 08/11/19 MELD: 31 08/11/19 Micro:None Pending: None Reitan HE Assessment (A): 08/12/19: 96 seconds 08/13/19: 34 seconds Imaging Interpretation: 07/17/2019 US with Dopplers IMPRESSION: Cirrhotic liver morphology with findings of portal hypertension. Unremarkable Doppler ultrasound without evidence of venous thrombosis. Cholelithiasis without evidence of cholecystitis. POCUS: Negative eval for tapable abdominal pocket on 08/13 as per hepatology request. Brief Summary: Mr. 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 Newly diagno sed IDDM. Physical exam consistent with liver disease, he is HDS, has stable labs at current baseline awaiting liver transplant; MELD-32. Assessment and Plan: Assessment and Plan: #ESLD 2/2 ETOH and spur cell anemia requiring frequent transfusion leading to secondary h emachromatosis. # Hepatic encephalopathy Encephalopathy with wax/wane characteristics, greatly improved from time of admission. Abdo men assessed for tapable ascites pocket negative on 08/13. HE Improved from yesterday based on clinical features to include decreased asterixis as well as a 62 second improvement on Re itan HE testing. Pt on top of transplant list with [id number] calc on 08/11. Dx:Daily CMP and INR - to calculate MELD daily per transplant request Ttx: - lactulose 45g qd with 30g in AM 15g PM. 10g PRN with BM goal at 3-5 daily. - Rifaximin 550mg oral QID #KAR on CKD KAR likely prerenal, BUN:Cr 62:1.22.Patient at high risk for HRS, also underlying CKD, he mochromatosis. Urine Na consistently below 10. S/p fluids, albumin (most recently 08/07). - strict I&Os - Midodrine 10 mg TID - continue to monitor Cr #Non-infectious Diarrhea: Pt reports three days of watery diarrhea without blood or mucus t hat has since improved. Pt reports return to normal stools since 21:00 on 08/11. High lactul ose dose possible reason for transient diarrhea. Resolution coincides with decrease in lactu lose dose over the prior two days. Will follow closely to monitor resolution. # Nutrition Per hepatology, poor nutrition is barrier to transplant, recommended DHT. - DHT placed 08/01, TFs started 08/02. - TF changed to nocturnal only to promote PO intake during the day. - Nutrition following, appreciate recs. - VitD 21744 U qweekly + multivitamin without iron started 07/31. #Diabetes Mellitus New diagnosis this admission., A1c will not be accurate due to frequent transfusions for hi s spur cell anemia. Regulardietto encourage more PO intake. Morning CBG have been elevated in high 200s over pervious week; will make adjustments to in sulin as noted below. - PM NPH 66units - AM NPH 25 units - Lispro 15 U TID WM - D/C SSI - adult educator reference - need to refer to outpatient diabetes clinic before DC - freestyle glucometer, lancets, test strips, humalog and humalin pens sent to [facility] to deter mine coverage/copay per DM RN request- appreciate assistance with educating patient on this new diagnosis. Continue to encourage patient to administer his own insulin. # Spur cell anemia # Iron overload Goal hemoglobin will be 8 once transplant imminent, otherwise ok to be a little below 7 unl ess he has new symptoms attributed to anemia or active bleeding. No evidence of bleeding. Hgb6.9but will defer transfusion due to margin of error of lab test as well as iron over load. No symptoms of anemia. - Continue home [id number] mg TID. - Active type and screen - Transfuse to goal Hgb 8 if transplant imminent, otherwise will hold off on transfusion un less low-mid 6s or new symptoms. # Red urine Differential includes conjugated hyperbilirubinemia though due to cirrhosis this is unlikel y as this condition is more likely to produce unconjugated hyperbilirubinemia. Most likely due to Deferiprone as this is a common side effect. -ctm Diet:regular + TFs Sleep: Melatonin PRN Dispo: at top of transplant list, awaiting liver. He sister and mother are planning to take turns coming from [place] to provide care, once he g ets his transplant. Angela NAIK Student [facility] and [facility] Pager [phone] Associated attestation - Zahida Grimaldo MD - 08/15/2019 3:29 PM PDTAgree with PA Student H nicole's assessment and plan as outlined in note. This is a 54 yo male with ESLD c/b spur cell anemia requiring numerous transfusions with subsequent secondary hemochromatosis who was or iginally admitted with encephalopathy with now prolonged hospital course. Found to have new diagnosis of diabetes thought 2/2 iron deposition. Course c/b by SVT requiring MICU admissio n, now resolved, optimizing strength and nutrition while awaiting liver transplant. No new complaints. Vitals unremarkable. Exam with scleral icterus, jaundice, bronze appeari ng skin, no asterixis, AAOx3. Abdomen soft, NTND. Labs largely stable. No leukocytosis. Stab le anemia. Problems: # ESLD # spur cell anemia # secondary hemochromatosis # h/o SVT, on amiodarone # acute kidney injury # diabetes A/P Continue nocturnal tube feeds and regular daily PO intake to optimize nutrition and work wi th PT while awaiting transplant. Insulin continues to be adjusted with improving blood sugar s. Top of transplant list. Continue lactulose titrated to 3-4 BMs/ day for HE. Zahida Grimaldo MD PGY-3, [facility]Eliane naranjo MD - 08/14/2019 6:55 AM PDT GENERAL MEDICINE PROGRESS NOTE Attending Physician: Jackie Hernadez MD Hospital Day: 28 ID: ESLD, afib, spur cell anemia, secondary hemochromatosis, KAR on CKD 24h Events: Temp 100.2 overnight, now afebrile. Vitals otherwise stable and no new symptoms reported. Subjective: Slept poorly last night but otherwise feeling cheerful and joking around. Denies abdominal pain, fevers, chills. Tolerating TF. Reports one bowel movement last night, a couple during the day yesterday. Active Medications: amiodarone (CORDARONE) tablet 200 mg, 200 mg, oral, DAILY cholecalciferol (VITAMIN D3) capsule 50,000 Units, 50,000 Units, oral, Q7D deferiprone tab 2,000 mg, 2,000 mg, oral, TID dextrose 50 % in water IV 25 mL, 25 mL, intravenous, PRN diclofenac (VOLTAREN) 1 % gel 4 g, 4 g, topical, QID PRN glucagon (GLUCAGEN) injection 1 mg, 1 mg, intramuscular, PRN glucose chewable tablet 16 g, 16 g, oral, PRN insulin lispro (HUMALOG) injection 1-16 Units, 1-16 Units, subcutaneous, QID insulin lispro (HUMALOG) injection 15 Units, 15 Units, subcutaneous, TID W/MEALS insulin NPH (HUMULIN N) injection 25 Units, 25 Units, subcutaneous, BEFORE BREAKFAST insulin NPH (HUMULIN N) injection 66 Units, 66 Units, subcutaneous, HS lactulose (ENULAC) 10 g, 15 mL, oral, QPM lactulose (ENULAC) 10 g, 15 mL, oral, Q2H PRN lactulose (ENULAC) liquid 20 g, 30 mL, oral, QAM magnesium oxide (MAG-OX) tablet 400 mg, 400 mg, oral, DAILY melatonin tablet 3 mg, 3 mg, oral, HS PRN metoprolol tartrate (LOPRESSOR) tablet 6.25 mg, 6.25 mg, oral, BID midodrine (PROAMITINE) tablet 10 mg, 10 mg, oral, TID multivitamin (THERA VITAMIN) 1 tablet, 1 tablet, oral, DAILY ondansetron (ZOFRAN) tablet 4 mg, 4 mg, oral, Q8H PRN polyethylene glycol (MIRALAX) packet 8.5 g, 8.5 g, oral, DAILY PRN rifAXIMin (XIFAXAN) tablet 550 mg, 550 mg, oral, BID saliva substitute (MOUTH KOTE) spray, , oral, PRN Physical Exam: Last 24 hour min/max Temp: 37 C (98.6 F) Temp Min: 36.8 C (98.2 F) Max: 37.9 C (100.2 F) Pulse: 70 Pulse Min: 65 Max: 71 Resp: 17 Resp Min: 16 Max: 18 BP: 116/45 BP Min: 102/37 Max: 116/45 SpO2: 100 % SpO2 Min: 100 % Max: 100 % Body mass index is 29.76 kg/m. Intake/Output Summary (Last 24 hours) at 08/14/2019 0655 Last data filed at 08/14/2019 0556 Gross per 24 hour Intake 1528 ml Output 550 ml Net 978 ml General Appearance:Jaundiced, NAD, sitting up in bed. HEENT:Scleral icterus, EOMI, MMM. DHT in nose. Respiratory:CTAB, no wheeze or crackles Cardiovascular: RRR, 2/6 holosystolic murmur loudest at left sternal border Gastrointestinal:soft, non-tender, no rebound, no guarding Musculoskeletal:3+ pitting edema to mid delgadillo, sacral edema Skin:Jaundiced, bronzed complexion. Gynecomastia. Telangectasias on abdomen and chest. Neurologic:AAOx3. Speech occasionally slurred (this is his baseline) but comprehensible a nd linear. Labs: Chemistries: Last 72 Hours (or 3 results) - Refreshable Recent Labs 08/12/19 0637 08/13/19 0441 08/14/19 0001 08/14/19 0528 08/14/19 0547 NA 135* -- 135* -- -- -- 135* K 4.1 -- 4.3 -- -- -- 4.6 CL 105 -- 106 -- -- -- 107 BICARB 20* -- 20* -- -- -- 23 BUN 73* -- 62* -- -- -- 62* CR 1.29 -- 1.22 -- -- -- 1.16 GLU 100* < > 208* < > 171* 134* 144* CA 8.7 -- 9.1 -- -- -- 8.6 MG 2.3 -- 2.4 -- -- -- 2.3 PO4 4.2 -- 3.5 -- -- -- 3.5 < > = values in this interval not displayed. Lab Results Component Value Date AST 91 08/14/2019 ALT 57 08/14/2019 TBILI 11.7 08/14/2019 DIRBILI 4.2 07/07/2019 AP 211 08/14/2019 TP 6.5 08/14/2019 ALB 3.0 08/14/2019 CBC with diff last 72 hours (or 3 results) - Refreshable Recent Labs 08/12/19 0637 08/13/19 0441 08/14/19 0547 WBC 3.63 4.39 4.37 HB 7.0* 7.0* 7.1* HCT 21.6* 21.1* 22.0* PLT 56* 55* 60* Micro: no interval micro Imaging: no interval imaging Assessment and Plan: a 54 y/owith ESLD 2/2 EtOH c/b hepatic encephalopathy, ascites, spur cell anemia requiring chronic transfusions and resulting in iron overload, who presented with HRS and developed SVT resulting in admission to the MICU where he was loaded with amiodarone an d then was transferred to the floor on 07/22 where he is being optimized nutritionally and me dically before liver transplant. 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 Delirium remains likel y due to ESLD. At top of transplant list. MELD-Na score: 33 at 08/14 -lactulose 30g in AM 15g PM. Goal BMs at 3-4 daily,rifaximin - Anesthesia consulted for preoperative eval and risk assessment - est ASA class 4 - recommended to consider CRRT intra-op if K is difficult to control on floor or if urine output decreases, as well as K monitoring and Mg replacement intraop. - should anticipate significant arrhythmias intra-op even under ideal circumstances that w ould necessitate rapid cardioversion/defibrillation - Daily CMP and INR - to calculate MELD per transplant request - jeannette duenas for worsening LE edema # low grade fever, resolved Temp 100.2 overnight which has now resolved, vitals otherwise stable, no new infectious sym ptoms. Bedside ultrasound without drainage pocket in abdomen. - blood cx today to r/o infxn #KAR on CKD KAR likely prerenal. Patient at high risk for HRS, also underlying kidney dysfunction 2/2 n ephropathy, hemochromatosis. Urine Na consistently below 10. Have been intermittently been g iving fluids, albumin (most recently 08/07). - strict I&Os - Midodrine 10 mg TID - continue to monitor Cr, slightly improved today # Nutrition - DHT placed 08/01, TFs started 08/02. - TF changed to nocturnal only to promote PO intake during the day. - Nutrition following, appreciate recs. - VitD 77002 U qweekly + multivitamin without iron started 07/31. 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 Of note, A1c wi ll not be accurate due to frequent transfusions for his spur cell anemia. Was on carb control diet but changed to regular to encourage more PO intake. - PM NPH 66 units - AM NPH 25 units - Lispro 15 U TID WM - mealtime SSI moderate - need to refer to outpatient diabetes clinic before DC - freestyle glucometer, lancets, test strips, humalog and humalin pens sent to [facility] to deter mine coverage/copay per DM RN request- appreciate assistance with educating patient on this new diagnosis. - Continue to encourage patient to administer his own insulin. - continue to emphasize importance of managing diabetes # Spur cell anemia # Iron overload Goal hemoglobin will be 8 once transplant imminent, otherwise ok to be a little below 7 unl ess he has new symptoms attributed to anemia or active bleeding. No evidence of bleeding. H DS. Hgb 6.9 but will defer transfusion due to margin of error of lab test as well as iron ov erload. No symptoms of anemia. - Continue home [id number] mg TID. - Zinc 50 mg PO daily. - Transfuse to goal Hgb 8 if transplant imminent, otherwise will hold off on transfusion un less low-mid 6s or new symptoms # Red urine Likely due to iron chelator. -ctm # Afib vs Aflutter May be related to myocardial iron depositionper cardiology. Should he have more episodes of SVT will consider increasing beta-orion and if unable to manage with that would conside r digoxin loading. Currently no recurrent episodes on BB. Hepatology recommend anesthesiolog y consult for operative evaluation given h/o SVT. Anesthesia discussed with cards possibilit y of stopping amio due to risk of hyperkalemia, however there are no alternative medications and as the patient would be precluded from transplant if he goes into afib with RVR, cards recommends continuing amiodarone. - Rate control: metoprolol tartrate 6.25mg BID - Rhythm control: 10g amio load complete 07/26. Maintenance dose 200 mg PO daily - Electrolytes:K > 4, Mg > 2 - Per cards note 08/03 "During his liver transplant surgery, recommend pacer/defibrillator pads on during if that is practical. Could also consider having RIJ sheath in place that cou ld accommodate temp transvenous pacing wire if patient were to develops persistent complete heart block or hemodynamically significant second degree AV block." #Hyperthyroidism, mild - Unlikely to be driving tachycardia - Outpatient follow up Diet:regular + TFs Sleep: Melatonin PRN Dispo: at top of transplant list, awaiting liver. He sister and mother are planning to take turns coming from [place] to provide care, once he g ets his transplant. Surrogate Decision Maker Primary Surrogate Decision Maker Doreen sister [phone] Secondary Surrogate Decision Maker Priyanka Rivera mother CODE:Full This patient was seen and examined by Dr. Hernadez, who agrees with the assessment and plan unless otherwise stated. Eliane Garza MD Internal Medicine [id number] signed by Jackie Hernadez MD at 08/15/2019 8:32 PM PDT Associated attestation - Jackie Hernadez MD - 08/15/2019 8:32 PM PDTGM attending I personally interviewed the patient, performed the tamez elements of the physical examinatio n, and personally formulated the assessment and plan with the resident. See resident Dr. Wally oro's note for details. 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 Hepatology Inpatient Consult Follow-Up Note Name: Doug Lawson Etiology of Liver Disease: ETOH Cirrhosis Blood type: A+ Status:Listed Listed MELD: 32 (08/13) MELD-Na score: 33 at 08/14/2019 5:47 AM MELD score: 32 at 08/14/2019 5:47 AM Calculated from: Serum Creatinine: 1.16 mg/dL at 08/14/2019 5:47 AM Serum Sodium: 135 mmol/L at 08/14/2019 5:47 AM Total Bilirubin: 11.7 mg/dL at 08/14/2019 5:47 AM INR(ratio): 3.52 INR at 08/14/2019 5:47 AM Age: 54 years A/P: Mr. Lawson is a 54 yo man with spur cell anemia requiring chronic transfusions c/b iron over load, EtOH cirrhosis c/b ascites.Blood type A+, listed for liver transplant,transferred for AMS and falls found to have hyperglycemia and renal insufficiency, hospital course compl icated by SVT requiring ICU transfer and amiodarone drip. 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 Transplant infectious disease hasalso weighed in,with no e/o infection/sepsis as etiology of SVT/afib. In regard to his tachyarrythmia, his cardiac f unction appears to be compensated and is not a contraindication for transplantper se. Has been titrated off amiodarone GTT and downgraded to medicine floors. Tachyarrythmia has been wellcontrolled with PO amiodarone and metoprolol and perdiscussions withEP attending Elizabeth Mcintyre, hisSVTs should not preclude pt from transplant and can be managed in the intra/ clara-operative period. If difficult to control despite amio/metop, theycould also offer ab lative therapies prior to transplant. Patient has several risk factors for post-LT heart failure though, including ETOH as etiolo gy of heart failure, depressed EF 55-60% (low for hyperdynamics of cirrhosis patient), and i tom deposition in myocardium.Acknowledging these risks, consensus was to proceed with OLT. After discussion with transplantanesthesia and cardiology, will continue amiodarone for h istachyarrythmia. While patient awaits for OLT, would continue to optimize his nutrition with enteral feeding and continue physical therapy/occupationatal therapy. Recommendations: -obtain blood cultures x2 -continueDHT feedingfor supplemental nutrition; f/u nutrition recsre: daily calorie c ounts -continue PT/OT to improve functional status - continue rifaximin/lactulose for 3-4 BMs/day -would hold off on transfusing now; continue daily CBC and will weigh risks/benefits of tra nsfusion as we monitor patient clinically We will continue to follow along with you. Please page with any questions or concerns. This patient was staffed with , who agrees with above. Henrique Chapa MD Gastroenterology & Hepatology Fellow Pager:[phone] IE/S: Had low grade fever overnight. Had 3 BMs/last 24 hours. Denies abdominal pain or confusi on. States medicine team came by yesterday to assess for tappable ascites, but there was non e. O: Medications: Medications Scheduled Medication Dose/Rate, Route, Frequency Last Action amiodarone (CORDARONE) tablet 200 mg 200 mg, oral, DAILY Given: 08/13 09 cholecalciferol (VITAMIN D3) capsule 50,000 Units 50,000 Units, oral, Q7D Given: 08/07 133 2 deferiprone tab 2,000 mg 2,000 mg, oral, TID Given: 08/13 2122 insulin lispro (HUMALOG) injection 1-16 Units 1 Units, subQ, QID Given: 08/14 0015 insulin lispro (HUMALOG) injection 15 Units 15 Units, subQ, TID W/MEALS Given: 08/13 1637 insulin NPH (HUMULIN N) injection 25 Units 25 Units, subQ, BEFORE BREAKFAST Given: 08/13 0 651 insulin NPH (HUMULIN N) injection 66 Units 66 Units, subQ, HS Given: 08/14 0015 lactulose (ENULAC) 10 g 10 g, oral, QPM Given: 08/13 2128 lactulose (ENULAC) liquid 20 g 20 g, oral, QAM Given: 08/13 937 magnesium oxide (MAG-OX) tablet 400 mg 400 mg, oral, DAILY Given: 08/13 936 metoprolol tartrate (LOPRESSOR) tablet 6.25 mg 6.25 mg, oral, BID Given: 08/13 2119 midodrine (PROAMITINE) tablet 10 mg 10 mg, oral, TID Given: 08/13 2119 multivitamin (THERA VITAMIN) 1 tablet 1 tablet, oral, DAILY Given: 08/13 936 rifAXIMin (XIFAXAN) tablet 550 mg 550 mg, oral, BID Given: 08/13 2119 PRN Medication Dose/Rate, Route, Frequency Last Action dextrose 50 % in water IV 25 mL 25 mL, IV, PRN Ordered diclofenac (VOLTAREN) 1 % gel 4 g 4 g, top, QID PRN Given: 07/23 931 glucagon (GLUCAGEN) injection 1 mg 1 mg, IM, PRN Ordered glucose chewable tablet 16 g 16 g, oral, PRN Ordered lactulose (ENULAC) 10 g 10 g, oral, Q2H PRN Given: 08/13 1844 melatonin tablet 3 mg 3 mg, oral, HS PRN Given: 08/13 2119 ondansetron (ZOFRAN) tablet 4 mg 4 mg, oral, Q8H PRN Given: 08/05 0245 polyethylene glycol (MIRALAX) packet 8.5 g 8.5 g, oral, DAILY PRN Ordered saliva substitute (MOUTH KOTE) spray No Dose/Rate, oral, PRN Ordered Vitals: Last 24 hour min/max Temp: 37 C (98.6 F) Temp Min: 36.8 C (98.2 F) Max: 37.9 C (100.2 F) Pulse: 70 Pulse Min: 65 Max: 71 Resp: 17 Resp Min: 16 Max: 18 BP: 116/45 BP Min: 102/37 Max: 116/45 SpO2: 100 % SpO2 Min: 100 % Max: 100 % Body mass index is 29.76 kg/m. Exam: Gen:NAD HEENT: DHT in R nares c/d/i CV:RRR+ holosystolic murmur Abd: Soft, NT,tympanic to percussion and moderately distended Neuro: no asterixis Labs: Recent Labs 08/11/1948 08/12/1937 08/13/19440 WBC 4.14 3.63 4.39 HB 6.9* 7.0* 7.0* HCT 20.4* 21.6* 21.1* PLT 54* 56* 55* Recent Labs 08/11/1954708/12/1937 08/13/1944008/13/19 1545 08/13/19203808/14/19 0001 NA 133* -- 135* -- 135* -- -- -- -- K 4.6 -- 4.1 -- 4.3 -- -- -- -- CL 103 -- 105 -- 106 -- -- -- -- BICARB 20* -- 20* -- 20* -- -- -- -- BUN 73* -- 73* -- 62* -- -- -- -- CR 1.31* -- 1.29 -- 1.22 -- -- -- -- GLU 199* < > 100* < > 208* < > 91 100* 171* CA 8.7 -- 8.7 -- 9.1 -- -- -- -- AST 91* -- 94* -- 109* -- -- -- -- ALT 56 -- 57 -- 58 -- -- -- -- AP 211* -- 194* -- 206* -- -- -- -- TBILI 9.5* -- 10.8* -- 10.7* -- -- -- -- TP 6.4 -- 6.7 -- 6.6 -- -- -- -- ALB 3.1* -- 3.3* -- 3.2* -- -- -- -- ANIONGAP 10 -- 10 -- 9 -- -- -- -- ANIONALBCOR 12* -- 11 -- 11 -- -- -- -- < > = values in this interval not displayed. Labs: Lab Results Component Value Date MG 2.4 08/13/2019 Lab Results Component Value Date INRPT 3.59 (H) 08/13/2019 No results found for: FK506 Imaging and Other Studies: 07/17/2019 US with Dopplers IMPRESSION: Cirrhotic liver morphology with findings of portal hypertension. Unremarkable Doppler ultrasound without evidence of venous thrombosis. Cholelithiasis without evidence of cholecystitis. MELD-Na score: 32 at 08/13/2019 4:41 AM MELD score: 31 at 08/13/2019 4:41 AM Calculated from: Serum Creatinine: 1.22 mg/dL at 08/13/2019 4:41 AM Serum Sodium: 135 mmol/L at 08/13/2019 4:41 AM Total Bilirubin: 10.7 mg/dL at 08/13/2019 4:41 AM INR(ratio): 3.59 INR at 08/13/2019 4:41 AM Age: 54 years Associated attestation - Mariaa Gamez MD - 08/14/2019 10:10 PM PDTHepatology Attending DOS: 08/14/2019 I personally interviewed the patient, performed the pertinent parts of the physical examina tion and personally formulated the plan with the fellow. I agree with the fellow's document ation as outlined above. MD Mariaa Sanchez MD [address] [place] [address] Zahida Grimaldo MD - 08/13/2019 3:18 PM PDT GENERAL MEDICINE PROGRESS NOTE Attending Physician: Jackie Hernadez MD Hospital Day: 27 ID: ESLD, afib, spur cell anemia, secondary hemochromatosis, KAR on CKD 24h Events: Family in town. No acute events overnight. Subjective: In good spirit. Continues to engage in his care by going for walks, practicing insulin inje ctions and taking own CBG with substantial encouragement from staff. Denies abdominal pain, fevers, chills. Tolerating TF. Active Medications: amiodarone (CORDARONE) tablet 200 mg, 200 mg, oral, DAILY cholecalciferol (VITAMIN D3) capsule 50,000 Units, 50,000 Units, oral, Q7D deferiprone tab 2,000 mg, 2,000 mg, oral, TID dextrose 50 % in water IV 25 mL, 25 mL, intravenous, PRN diclofenac (VOLTAREN) 1 % gel 4 g, 4 g, topical, QID PRN glucagon (GLUCAGEN) injection 1 mg, 1 mg, intramuscular, PRN glucose chewable tablet 16 g, 16 g, oral, PRN insulin lispro (HUMALOG) injection 1-16 Units, 1-16 Units, subcutaneous, QID insulin lispro (HUMALOG) injection 15 Units, 15 Units, subcutaneous, TID W/MEALS insulin NPH (HUMULIN N) injection 25 Units, 25 Units, subcutaneous, BEFORE BREAKFAST insulin NPH (HUMULIN N) injection 66 Units, 66 Units, subcutaneous, HS lactulose (ENULAC) 10 g, 15 mL, oral, QPM lactulose (ENULAC) 10 g, 15 mL, oral, Q2H PRN lactulose (ENULAC) liquid 20 g, 30 mL, oral, QAM magnesium oxide (MAG-OX) tablet 400 mg, 400 mg, oral, DAILY melatonin tablet 3 mg, 3 mg, oral, HS PRN metoprolol tartrate (LOPRESSOR) tablet 6.25 mg, 6.25 mg, oral, BID midodrine (PROAMITINE) tablet 10 mg, 10 mg, oral, TID multivitamin (THERA VITAMIN) 1 tablet, 1 tablet, oral, DAILY ondansetron (ZOFRAN) tablet 4 mg, 4 mg, oral, Q8H PRN polyethylene glycol (MIRALAX) packet 8.5 g, 8.5 g, oral, DAILY PRN rifAXIMin (XIFAXAN) tablet 550 mg, 550 mg, oral, BID saliva substitute (MOUTH KOTE) spray, , oral, PRN Physical Exam: Last 24 hour min/max Temp: 36.9 C (98.4 F) Temp Min: 36.7 C (98.1 F) Max: 37.1 C (98.8 F) Pulse: 70 Pulse Min: 64 Max: 72 Resp: 18 Resp Min: 14 Max: 18 BP: 109/52 BP Min: 101/47 Max: 114/52 SpO2: 100 % SpO2 Min: 100 % Max: 100 % Body mass index is 29.76 kg/m. Intake/Output Summary (Last 24 hours) at 08/13/2019 1519 Last data filed at 08/13/2019 0654 Gross per 24 hour Intake 1508 ml Output 300 ml Net 1208 ml General Appearance:Jaundiced, NAD, sitting up in bed. HEENT:Scleral icterus, EOMI, MMM. DHT in nose. Respiratory:CTAB, no wheeze or crackles Cardiovascular: RRR, 2/6 holosystolic murmur loudest at left sternal border Gastrointestinal:soft, non-tender, no rebound, no guarding Musculoskeletal:3+ pitting edema to mid delgadillo, sacral edema Skin:Jaundiced, bronzed complexion. Gynecomastia. Telangectasias on abdomen and chest. Neurologic:AAOx3. Speech occasionally slurred (this is his baseline) but comprehensible a nd linear. Labs: Chemistries: Last 72 Hours (or 3 results) - Refreshable Recent Labs 08/11/19 0548 08/12/19 0637 08/13/19 0441 08/13/19 0632 08/13/19 0928 NA 133* -- 135* -- 135* -- -- K 4.6 -- 4.1 -- 4.3 -- -- CL 103 -- 105 -- 106 -- -- BICARB 20* -- 20* -- 20* -- -- BUN 73* -- 73* -- 62* -- -- CR 1.31* -- 1.29 -- 1.22 -- -- GLU 199* < > 100* < > 208* 223* 225* CA 8.7 -- 8.7 -- 9.1 -- -- MG 2.4 -- 2.3 -- 2.4 -- -- PO4 3.9 -- 4.2 -- 3.5 -- -- < > = values in this interval not displayed. 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 Delirium remains likely due to ESLD. At top of transplant list. MELD-Na score: 32 at 08/13. -lactulose 30g in AM 15g PM. Goal BMs at 3-4 daily,rifaximin - Anesthesia consulted for preoperative eval and risk assessment - est ASA class 4 - recommended to consider CRRT intra-op if K is difficult to control on floor or if urine output decreases, as well as K monitoring and Mg replacement intraop. - should anticipate significant arrhythmias intra-op even under ideal circumstances that w ould necessitate rapid cardioversion/defibrillation - Daily CMP and INR - to calculate MELD per transplant request #KAR on CKD KAR likely prerenal. Patient at high risk for HRS, also underlying kidney dysfunction 2/2 n ephropathy, hemochromatosis. Urine Na consistently below 10. Have been intermittently been g iving fluids, albumin (most recently 08/07). - strict I&Os - Midodrine 10 mg TID - continue to monitor Cr, slightly improved today # Nutrition - DHT placed 08/01, TFs started 08/02. - TF changed to nocturnal only to promote PO intake during the day. - Nutrition following, appreciate recs. - VitD 23989 U qweekly + multivitamin without iron started 07/31. 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 Of note, A1c wi ll not be accurate due to frequent transfusions for his spur cell anemia. Was on carb control diet but changed to regular to encourage more PO intake. - PM NPH 66 units - AM NPH 25 units - Lispro 15 U TID WM - mealtime SSI moderate - need to refer to outpatient diabetes clinic before DC - freestyle glucometer, lancets, test strips, humalog and humalin pens sent to [facility] to deter mine coverage/copay per DM RN request- appreciate assistance with educating patient on this new diagnosis. - Continue to encourage patient to administer his own insulin. - continue to emphasize importance of managing diabetes # Spur cell anemia # Iron overload Goal hemoglobin will be 8 once transplant imminent, otherwise ok to be a little below 7 unl ess he has new symptoms attributed to anemia or active bleeding. No evidence of bleeding. H DS. Hgb 6.9 but will defer transfusion due to margin of error of lab test as well as iron ov erload. No symptoms of anemia. - Continue home [id number] mg TID. - Zinc 50 mg PO daily. - Transfuse to goal Hgb 8 if transplant imminent, otherwise will hold off on transfusion un less low-mid 6s or new symptoms # Red urine Likely due to iron chelator. -ctm # Afib vs Aflutter May be related to myocardial iron depositionper cardiology. Should he have more episodes of SVT will consider increasing beta-orion and if unable to manage with that would conside r digoxin loading. Currently no recurrent episodes on BB. Hepatology recommend anesthesiolog y consult for operative evaluation given h/o SVT. Anesthesia discussed with cards possibilit y of stopping amio due to risk of hyperkalemia, however there are no alternative medications and as the patient would be precluded from transplant if he goes into afib with RVR, cards recommends continuing amiodarone. - Rate control: metoprolol tartrate 6.25mg BID - Rhythm control: 10g amio load complete 07/26. Maintenance dose 200 mg PO daily - Electrolytes:K > 4, Mg > 2 - Per cards note 08/03 "During his liver transplant surgery, recommend pacer/defibrillator pads on during if that is practical. Could also consider having RIJ sheath in place that cou ld accommodate temp transvenous pacing wire if patient were to develops persistent complete heart block or hemodynamically significant second degree AV block." #Hyperthyroidism, mild - Unlikely to be driving tachycardia - Outpatient follow up Diet:regular + TFs Sleep: Melatonin PRN Dispo: at top of transplant list, awaiting liver. He sister and mother are planning to take turns coming from [place] to provide care, once he g ets his transplant. Surrogate Decision Maker Primary Surrogate Decision Maker Doreen sister [phone] Secondary Surrogate Decision Maker Priyanka Rivera mother CODE:Full This patient was seen and examined by Dr. Hernadez, who agrees with the assessment and plan unless otherwise stated. Zahida Grimaldo MD PGY-3, Internal Medicine P M PDT Associated attestation - Jackie Hernadez MD - 08/13/2019 11:52 PM PDTGM attending I personally interviewed the patient, performed the tamez elements of the physical examinatio n, and personally formulated the assessment and plan with the resident. See resident Dr. Wilks's note for details. 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 Donell awaits transplantation for ESLD/ MELD 36 Karena Angela - 08/13/2019 7:12 AM PDTFormatting of this note might be different from the martha gilorena. PA Student Progress Note Attending Physician: Jackie Hernadez MD Author: [facility] Day: 27 Interval hx: Pt states he slept well last night for the first time in awhile. Happy that his mother and sister are here to help. Reports only one BM yesterday which was loose in consistency. Pt re ports decreased appetite 2/2 FT discomfort. Has been up and moving around with the assistanc e of the nurse. Subjective: Doug Lawson is a 54 y.o. malewith ESLD 2/2 ETOH and secondary hemachromatosis th at is a result of chronic spur cell anemia requiring frequent blood transfusions. Pt is on d ay 27 of hospital stay after being BIBA to [facility] ED with AMS and CBG 584 without previou s hx of diabetes leading to [facility] admission for HRS 2/2 ESLD c/b HE. Pt developed SVT resulti ng in admission to MICU where he was loaded with amiodarone before being transferred to the floor on 07/22 where he is being optimized nutritionally and medically before liver transplan t. Active Medications: amiodarone (CORDARONE) tablet 200 mg, 200 mg, oral, DAILY cholecalciferol (VITAMIN D3) capsule 50,000 Units, 50,000 Units, oral, Q7D deferiprone tab 2,000 mg, 2,000 mg, oral, TID dextrose 50 % in water IV 25 mL, 25 mL, intravenous, PRN diclofenac (VOLTAREN) 1 % gel 4 g, 4 g, topical, QID PRN glucagon (GLUCAGEN) injection 1 mg, 1 mg, intramuscular, PRN glucose chewable tablet 16 g, 16 g, oral, PRN insulin lispro (HUMALOG) injection 1-16 Units, 1-16 Units, subcutaneous, QID insulin lispro (HUMALOG) injection 15 Units, 15 Units, subcutaneous, TID W/MEALS insulin NPH (HUMULIN N) injection 25 Units, 25 Units, subcutaneous, BEFORE BREAKFAST insulin NPH (HUMULIN N) injection 66 Units, 66 Units, subcutaneous, HS lactulose (ENULAC) 10 g, 15 mL, oral, QPM lactulose (ENULAC) 10 g, 15 mL, oral, Q2H PRN lactulose (ENULAC) liquid 20 g, 30 mL, oral, QAM magnesium oxide (MAG-OX) tablet 400 mg, 400 mg, oral, DAILY melatonin tablet 3 mg, 3 mg, oral, HS PRN metoprolol tartrate (LOPRESSOR) tablet 6.25 mg, 6.25 mg, oral, BID midodrine (PROAMITINE) tablet 10 mg, 10 mg, oral, TID multivitamin (THERA VITAMIN) 1 tablet, 1 tablet, oral, DAILY ondansetron (ZOFRAN) tablet 4 mg, 4 mg, oral, Q8H PRN polyethylene glycol (MIRALAX) packet 8.5 g, 8.5 g, oral, DAILY PRN rifAXIMin (XIFAXAN) tablet 550 mg, 550 mg, oral, BID saliva substitute (MOUTH KOTE) spray, , oral, PRN Physical Examination: Last Vitals: BP 101/47 (BP Location: Left upper arm, Patient Position: Lying right side) | Pulse 72 | Temp 37 C (98.6 F) (Oral) | Resp 16 | Ht 1.803 m (5' 11") | Wt 96.8 kg ( 213 lb 6.5 oz) | SpO2 100% | BMI 29.76 kg/m | BSA 2.2 m 24 Hour Vital Min/Max: Systolic (24hrs), Av , Min:101 , Max:116 Diastolic (24hrs), Av, Min:43, Max:57 Pulse Min: 64 Max: 72 Temp Min: 36.4 C (97.5 F) Max: 37.1 C (98.8 F) Resp Min: 14 Max: 16 SpO2 Min: 100 % Max: 100 % Intake/Output Summary (Last 24 hours) at 08/13/2019 0712 Last data filed at 08/13/2019 0654 Gross per 24 hour Intake 2286 ml Output 1050 ml Net 1236 ml General Appearance: Awake, chroniclly ill appearing,alert and oriented, NAD HEENT: Normocephalic, atraumatic. Scleral icterus present.PERRLA, EOMI Lungs: CTAB, no w/r/r, normal respiratory effort. Respiratory: RRR, normal S1 and S2,2/6 holosystolic murmur heard throughout.. Abdomen: soft, nontender, nondistended, +BS Cardiovascular: RRR, normal S1 and S2,2/6 holosystolic murmur heard best at sternal board ers. Abdominal:soft, nontender, nondistended, +BS Extremities/MSK:3+ pitting edema to mid delgadillo, sacral edema Skin: Bronze, jaundiced complexion. Leukonychia (Sadiq nails). Spider telangectasia's prese nt on abdomen and chest.Warm, dry. Neurologic:Very mild asterixis. CN II-XII intact. Speech is slurred but appropriate and michaela ear. Psych: Appropriate mood and affect for situation; friendly and cooperative with linear spee ch and thought. Laboratory: CBC with diff last 72 hours (or 3 results) Recent Labs 08/11/19 0548 08/12/19 0637 08/13/19 0441 WBC 4.14 3.63 4.39 HB 6.9* 7.0* 7.0* HCT 20.4* 21.6* 21.1* PLT 54* 56* 55* Chemistries last 72 Hours (or 3 results): Recent Labs 08/11/19 0548 08/12/19 0637 08/13/19 0441 NA 133* 135* 135* K 4.6 4.1 4.3 CL 103 105 106 BICARB 20* 20* 20* BUN 73* 73* 62* CR 1.31* 1.29 1.22 CA 8.7 8.7 9.1 MG 2.4 2.3 2.4 PO4 3.9 4.2 3.5 AST 91* 94* 109* ALT 56 57 58 AP 211* 194* 206* TBILI 9.5* 10.8* 10.7* TP 6.4 6.7 6.6 ALB 3.1* 3.3* 3.2* Lab Results Component Value Date INRPT 3.59 08/13/2019 Lab Results Component Value Date GLU 223 (H) 08/13/2019 MELD-Na: 32 08/11/19 MELD: 31 08/11/19 Micro:None Pending: None Gretel HE Assessment (A): 08/12/19: 96 seconds 08/13/19: 34 seconds Imaging Interpretation: 07/17/2019 US with Dopplers IMPRESSION: Cirrhotic liver morphology with findings of portal hypertension. Unremarkable Doppler ultrasound without evidence of venous thrombosis. Cholelithiasis without evidence of cholecystitis. Brief Summary: Mr. 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 Physical exa m is consistent with liver disease, he is HDS, has stable labs at current baseline awaiting liver transplant; MELD-32. Assessment and Plan: #ESLD 2/2 ETOH and spur cell anemia requiring frequent transfusion leading to secondary h emachromatosis. # Hepatic encephalopathy Encephalopathy with wax/wane characteristics, greatly improved from time of admission. HE I mproved from yesterday based on clinical features to include decreased asterixis as well as a 62 second improvement on [facility] HE testing. Pt on top of transplant list with MELD-NA 32 l ast calc on 08/11. Dx:Daily CMP and INR - to calculate MELD daily per transplant request Ttx: - lactulose 45g qd with 30g in AM 15g PM. 10g PRN with BM goal at 3-5 daily. - Rifaximin 550mg oral QID #KAR on CKD KAR likely prerenal, BUN:Cr 62:1.22.Patient at high risk for HRS, also underlying CKD, he mochromatosis. Urine Na consistently below 10. S/p fluids, albumin (most recently 08/07). - strict I&Os - Midodrine 10 mg TID - continue to monitor Cr #Non-infectious Diarrhea: Pt reports three days of watery diarrhea without blood or mucus t hat has since improved. Pt reports return to normal stools since 21:00 on 08/11. High lactul ose dose possible reason for transient diarrhea. Resolution coincides with decrease in lactu lose dose over the prior two days. Will follow closely to monitor resolution. # Nutrition Per hepatology, poor nutrition is barrier to transplant, recommended DHT. - DHT placed 08/01, TFs started 08/02. - TF changed to nocturnal only to promote PO intake during the day. - Nutrition following, appreciate recs. - VitD 68444 U qweekly + multivitamin without iron started 07/31. #Diabetes Mellitus New diagnosis this admission., A1c will not be accurate due to frequent transfusions for hi s spur cell anemia. Regulardietto encourage more PO intake. Morning CBG have been elevated in high 200s over pervious week; will make adjustments to in sulin as noted below. - PM NPH 66units - AM NPH 25 units - Lispro 15 U TID WM - D/C SSI - adult educator reference - need to refer to outpatient diabetes clinic before DC - freestyle glucometer, lancets, test strips, humalog and humalin pens sent to [facility] to deter mine coverage/copay per DM RN request- appreciate assistance with educating patient on this new diagnosis. Continue to encourage patient to administer his own insulin. # Spur cell anemia # Iron overload Goal hemoglobin will be 8 once transplant imminent, otherwise ok to be a little below 7 unl ess he has new symptoms attributed to anemia or active bleeding. No evidence of bleeding. Hgb6.9but will defer transfusion due to margin of error of lab test as well as iron over load. No symptoms of anemia. - Continue home [id number] mg TID. - Active type and screen - Transfuse to goal Hgb 8 if transplant imminent, otherwise will hold off on transfusion un less low-mid 6s or new symptoms. # Red urine Differential includes conjugated hyperbilirubinemia though due to cirrhosis this is unlikel y as this condition is more likely to produce unconjugated hyperbilirubinemia. Most likely due to Deferiprone as this is a common side effect. -ctm Diet:regular + TFs Sleep: Melatonin PRN Dispo: at top of transplant list, awaiting liver. He sister and mother are planning to take turns coming from [place] to provide care, once he g ets his transplant. Surrogate Decision Maker Primary Surrogate Decision Maker Doreen sister [phone] Secondary Surrogate Decision Maker Priyanka Rivera mother CODE:Full Angela NAIK Student [facility] [place] Pager [phone] Associated attestation - Zahida Grimaldo MD - 08/13/2019 10:14 PM PDTAgree with PA Student Nixon rivera's assessment and plan as outlined in note. This is a 54 yo male with ESLD c/b spur cell anemia requiring numerous transfusions with subsequent hemochromatosis who was originally a dmitted with encephalopathy with now prolonged hospital course (day 26). Found to have new d iagnosis of diabetes thought 2/2 iron deposition. Course c/b by SVT requiring MICU admission , now resolved, optimizing strength and nutrition while awaiting liver transplant. No new complaints. Vitals unremarkable. Exam with scleral icterus, jaundice, bronze appeari ng skin, no asterixis, AAOx3. Abdomen soft, NTND. Labs largely stable. No leukocytosis. Stab le anemia; Hgb 7. Bedside US of abdomen today; very minimal ascites, no pocket to tap. Problems: # ESLD # spur cell anemia # secondary hemochromatosis # h/o SVT, on amiodarone # acute kidney injury # diabetes A/P Continue nocturnal tube feeds and regular daily PO intake to optimize nutrition and work wi th PT while awaiting transplant. Insulin continues to be adjusted with improving blood sugar s. Top of transplant list. Continue lactulose titrated to 3-4 BMs/ day for HE. Zahida Grimaldo MD PGY-3, Internal MedicineChoHenrique MD - 08/13/2019 5:56 AM PDTFormatting of this not e might be different from the original. Hepatology Inpatient Consult Follow-Up Note Name: Doug Lawson Etiology of Liver Disease: ETOH Cirrhosis Blood type: A+ Status:Listed MELD-Na score: 32 at 08/13/2019 4:41 AM MELD score: 31 at 08/13/2019 4:41 AM Calculated from: Serum Creatinine: 1.22 mg/dL at 08/13/2019 4:41 AM Serum Sodium: 135 mmol/L at 08/13/2019 4:41 AM Total Bilirubin: 10.7 mg/dL at 08/13/2019 4:41 AM INR(ratio): 3.59 INR at 08/13/2019 4:41 AM Age: 54 years A/P: Mr. Lawson is a 54 yo man with spur cell anemia requiring chronic transfusions c/b iron over load, EtOH cirrhosis c/b ascites.Blood type A+, listed for liver transplant,transferred for AMS and falls found to have hyperglycemia and renal insufficiency, hospital course compl icated by SVT requiring ICU transfer and amiodarone drip. 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 Transplant infectious disease hasalso weighed in,with no e/o infection/sepsis as etiology of SVT/afib. In regard to his tachyarrythmia, his cardiac f unction appears to be compensated and is not a contraindication for transplantper se. Has been titrated off amiodarone GTT and downgraded to medicine floors. Tachyarrythmia has been wellcontrolled with PO amiodarone and metoprolol and perdiscussions withEP attending Elizabeth Mcintyre, hisSVTs should not preclude pt from transplant and can be managed in the intra/ clara-operative period. If difficult to control despite amio/metop, theycould also offer ab lative therapies prior to transplant. Patient has several risk factors for post-LT heart failure though, including ETOH as etiolo gy of heart failure, depressed EF 55-60% (low for hyperdynamics of cirrhosis patient), and i tom deposition in myocardium.Acknowledging these risks, consensus was to proceed with OLT. After discussion with transplantanesthesia and cardiology, will continue amiodarone for h istachyarrythmia. While patient awaits for OLT, would continue to optimize his nutrition with enteral feeding and continue physical therapy/occupationatal therapy. Recommendations: -If patient has tappable pockets, would repeat diagnostic paracentesis to rule out SBP in s etting of acute change in mental status and asterixis -continueDHT feedingfor supplemental nutrition; f/u nutrition recsre: daily calorie c ounts -continue PT/OT to improve functional status - continue rifaximin/lactulose for 3-4 BMs/day -would hold off on transfusing now; continue daily CBC and will weigh risks/benefits of tra nsfusion as we monitor patient clinically We will continue to follow along with you. Please page with any questions or concerns. This patient was staffed with , who agrees with above. Henrique Chapa MD Gastroenterology & Hepatology Fellow Pager:[phone] IE/S: More slow in mentation today; only 1 BM last 24 hours. O: Medications: Medications Scheduled Medication Dose/Rate, Route, Frequency Last Action amiodarone (CORDARONE) tablet 200 mg 200 mg, oral, DAILY Given: 08/12 908 cholecalciferol (VITAMIN D3) capsule 50,000 Units 50,000 Units, oral, Q7D Given: 08/07 133 2 deferiprone tab 2,000 mg 2,000 mg, oral, TID Given: 08/12 2101 insulin lispro (HUMALOG) injection 1-16 Units 4 Units, subQ, QID Given: 08/11 748 insulin lispro (HUMALOG) injection 15 Units 7 Units, subQ, TID W/MEALS Given: 08/12 1857 insulin NPH (HUMULIN N) injection 25 Units 25 Units, subQ, BEFORE BREAKFAST Given: 08/12 628 insulin NPH (HUMULIN N) injection 66 Units 60 Units, subQ, HS Given: 08/12 2314 lactulose (ENULAC) 10 g 10 g, oral, QPM Given: 08/12 2120 lactulose (ENULAC) liquid 20 g 20 g, oral, QAM Given: 08/12 910 magnesium oxide (MAG-OX) tablet 400 mg 400 mg, oral, DAILY Given: 08/12 908 metoprolol tartrate (LOPRESSOR) tablet 6.25 mg 6.25 mg, oral, BID Given: 08/12 2100 midodrine (PROAMITINE) tablet 10 mg 10 mg, oral, TID Given: 08/12 2059 multivitamin (THERA VITAMIN) 1 tablet 1 tablet, oral, DAILY Given: 08/12 908 rifAXIMin (XIFAXAN) tablet 550 mg 550 mg, oral, BID Given: 08/12 2059 PRN Medication Dose/Rate, Route, Frequency Last Action dextrose 50 % in water IV 25 mL 25 mL, IV, PRN Ordered diclofenac (VOLTAREN) 1 % gel 4 g 4 g, top, QID PRN Given: 07/23 931 glucagon (GLUCAGEN) injection 1 mg 1 mg, IM, PRN Ordered glucose chewable tablet 16 g 16 g, oral, PRN Ordered lactulose (ENULAC) 10 g 10 g, oral, Q2H PRN Given: 08/12 2059 melatonin tablet 3 mg 3 mg, oral, HS PRN Given: 08/05 2151 ondansetron (ZOFRAN) tablet 4 mg 4 mg, oral, Q8H PRN Given: 08/05 0245 polyethylene glycol (MIRALAX) packet 8.5 g 8.5 g, oral, DAILY PRN Ordered saliva substitute (MOUTH KOTE) spray No Dose/Rate, oral, PRN Ordered Vitals: Last 24 hour min/max Temp: 37 C (98.6 F) Temp Min: 36.4 C (97.5 F) Max: 37.1 C (98.8 F) Pulse: 72 Pulse Min: 64 Max: 72 Resp: 16 Resp Min: 14 Max: 16 BP: 101/47 BP Min: 101/47 Max: 116/57 SpO2: 100 % SpO2 Min: 100 % Max: 100 % Body mass index is 29.76 kg/m. Exam: Gen:NAD HEENT: DHT in R nares c/d/i CV:RRR+ holosystolic murmur Abd: Soft, NT,tympanic to percussion and moderately distended Neuro: Mild asterixis Labs: Recent Labs 08/11/19 0548 08/12/19 0637 08/13/19440 WBC 4.14 3.63 4.39 HB 6.9* 7.0* 7.0* HCT 20.4* 21.6* 21.1* PLT 54* 56* 55* Recent Labs 08/10/1944808/11/19 0548 08/12/19 0637 08/12/19185108/12/19222708/13/19 0133 NA 130* -- 133* -- 135* -- -- -- -- K 4.6 -- 4.6 -- 4.1 -- -- -- -- CL 101 -- 103 -- 105 -- -- -- -- BICARB 19* -- 20* -- 20* -- -- -- -- BUN 71* -- 73* -- 73* -- -- -- -- CR 1.40* -- 1.31* -- 1.29 -- -- -- -- GLU 145* < > 199* < > 100* < > 122* 135* 197* CA 8.9 -- 8.7 -- 8.7 -- -- -- -- AST 82* -- 91* -- 94* -- -- -- -- ALT 54 -- 56 -- 57 -- -- -- -- AP 212* -- 211* -- 194* -- -- -- -- TBILI 8.8* -- 9.5* -- 10.8* -- -- -- -- TP 6.5 -- 6.4 -- 6.7 -- -- -- -- ALB 3.0* -- 3.1* -- 3.3* -- -- -- -- ANIONGAP 10 -- 10 -- 10 -- -- -- -- ANIONALBCOR 12* -- 12* -- 11 -- -- -- -- < > = values in this interval not displayed. Labs: Lab Results Component Value Date MG 2.3 08/12/2019 Lab Results Component Value Date INRPT 3.59 (H) 08/13/2019 No results found for: FK506 Imaging and Other Studies: 07/17/2019 US with Dopplers IMPRESSION: Cirrhotic liver morphology with findings of portal hypertension. Unremarkable Doppler ultrasound without evidence of venous thrombosis. Cholelithiasis without evidence of cholecystitis. MELD-Na score: 33 at 08/13/2019 4:41 AM MELD score: 32 at 08/13/2019 4:41 AM Calculated from: Serum Creatinine: 1.29 mg/dL at 08/12/2019 6:37 AM Serum Sodium: 135 mmol/L at 08/12/2019 6:37 AM Total Bilirubin: 10.8 mg/dL at 08/12/2019 6:37 AM INR(ratio): 3.59 INR at 08/13/2019 4:41 AM Age: 54 years Associated attestation - Mariaa Gamez MD - 08/13/2019 9:47 PM PDTHepatology Attending DOS: 08/13/2019 I personally interviewed the patient, performed the pertinent parts of the physical examina tion and personally formulated the plan with the fellow. I agree with the fellow's document ation as outlined above. MD Mariaa Sanchez MD [address] [place] [id number] Eliane Garza MD - 08/12/2019 7:02 AM PDT GENERAL MEDICINE PROGRESS NOTE Author: Eliane Garza MD Attending Physician: Jackie Hernadez MD Hospital Day: ID: ESLD, afib, spur cell anemia, secondary hemochromatosis, KAR on CKD 24h Events: Tube feeds became disconnected overnight, spilled on bed. Lower BG in 80s this am likely at tributed to lower volume TFs overnight because of this loss. Mom (Priyanka) and sister (Cinthia) arrived in town. Subjective: In good spirits and excited to see his family. States consistency of BMs soft-watery (has b een his baseline), number has decreased to 5 a day from 8. Continues to engage in his care b y going for walks, practicing insulin injections and taking own CBG with substantial encoura gement from staff. Active Medications: amiodarone (CORDARONE) tablet 200 mg, 200 mg, oral, DAILY cholecalciferol (VITAMIN D3) capsule 50,000 Units, 50,000 Units, oral, Q7D deferiprone tab 2,000 mg, 2,000 mg, oral, TID dextrose 50 % in water IV 25 mL, 25 mL, intravenous, PRN diclofenac (VOLTAREN) 1 % gel 4 g, 4 g, topical, QID PRN glucagon (GLUCAGEN) injection 1 mg, 1 mg, intramuscular, PRN glucose chewable tablet 16 g, 16 g, oral, PRN insulin lispro (HUMALOG) injection 1-16 Units, 1-16 Units, subcutaneous, QID insulin lispro (HUMALOG) injection 15 Units, 15 Units, subcutaneous, TID W/MEALS insulin NPH (HUMULIN N) injection 25 Units, 25 Units, subcutaneous, BEFORE BREAKFAST insulin NPH (HUMULIN N) injection 66 Units, 66 Units, subcutaneous, HS lactulose (ENULAC) 10 g, 15 mL, oral, QPM lactulose (ENULAC) 10 g, 15 mL, oral, Q2H PRN lactulose (ENULAC) liquid 20 g, 30 mL, oral, QAM magnesium oxide (MAG-OX) tablet 400 mg, 400 mg, oral, DAILY melatonin tablet 3 mg, 3 mg, oral, HS PRN metoprolol tartrate (LOPRESSOR) tablet 6.25 mg, 6.25 mg, oral, BID midodrine (PROAMITINE) tablet 10 mg, 10 mg, oral, TID multivitamin (THERA VITAMIN) 1 tablet, 1 tablet, oral, DAILY ondansetron (ZOFRAN) tablet 4 mg, 4 mg, oral, Q8H PRN polyethylene glycol (MIRALAX) packet 8.5 g, 8.5 g, oral, DAILY PRN rifAXIMin (XIFAXAN) tablet 550 mg, 550 mg, oral, BID Physical Exam: Last 24 hour min/max Temp: 36.8 C (98.2 F) Temp Min: 36.8 C (98.2 F) Max: 37 C (98.6 F) Pulse: 65 Pulse Min: 64 Max: 70 Resp: 14 Resp Min: 14 Max: 16 BP: 108/52 BP Min: 105/47 Max: 128/44 SpO2: 100 % SpO2 Min: 100 % Max: 100 % Body mass index is 29.76 kg/m. Intake/Output Summary (Last 24 hours) at 08/12/2019 07 Last data filed at 08/12/2019 0545 Gross per 24 hour Intake 3128 ml Output 675 ml Net 2453 ml General Appearance:Jaundiced, NAD, sitting up in bed. HEENT:Scleral icterus, EOMI, MMM. DHT in nose. Respiratory:CTAB, no wheeze or crackles Cardiovascular: RRR, 2/6 holosystolic murmur loudest at left sternal border Gastrointestinal:soft, non-tender, no rebound, no guarding Musculoskeletal:3+ pitting edema to mid delgadillo, sacral edema Skin:Jaundiced, bronzed complexion. Gynecomastia. Telangectasias on abdomen and chest. Neurologic:AAOx3. Speech occasionally slurred (this is his baseline) but comprehensible a nd linear. Labs: Chemistries: Last 72 Hours (or 3 results) - Refreshable Recent Labs 08/10/19 0449 08/11/19 0548 08/11/197 08/11/19 2246 08/12/19 0613 NA 130* -- 133* -- -- -- -- K 4.6 -- 4.6 -- -- -- -- CL 101 -- 103 -- -- -- -- BICARB 19* -- 20* -- -- -- -- BUN 71* -- 73* -- -- -- -- CR 1.40* -- 1.31* -- -- -- -- GLU 145* < > 199* < > 148* 147* 86 CA 8.9 -- 8.7 -- -- -- -- MG 2.6 -- 2.4 -- -- -- -- PO4 3.1 -- 3.9 -- -- -- -- < > = values in this interval not displayed. 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 Delirium remains likely due to ESLD. At top of transplant list. MELD-Na 33 on 08/12. -lactulose 30g in AM 15g PM. Goal BMs at 3-4 daily,rifaximin - Anesthesia consulted for preoperative eval and risk assessment - est ASA class 4 - recommended to consider CRRT intra-op if K is difficult to control on floor or if urine output decreases, as well as K monitoring and Mg replacement intraop. - should anticipate significant arrhythmias intra-op even under ideal circumstances that w ould necessitate rapid cardioversion/defibrillation - Daily CMP and INR - to calculate MELD per transplant request # Diarrhea, improved Two days of watery diarrhea with up to 8 bowel movements a day despite fewer doses of lactu lose. Initially concerned for c diff given sudden increase in bms, but have discontinued thi s test as diarrhea improved spontaneously. Suspect may have been high lactulose dose, contin ue to monitor. Also decreased tube feed rate as this is a possible contributor, although thi s requires longer duration of 14 hours so will consider changing back to original rate and d uration as diarrhea resolves. #KAR on CKD KAR likely prerenal. Patient at high risk for HRS, also underlying kidney dysfunction 2/2 n ephropathy, hemochromatosis. Urine Na consistently below 10. Have been intermittently been g iving fluids, albumin (most recently 08/07). - strict I&Os - Midodrine 10 mg TID - continue to monitor Cr, slightly improved today # Nutrition Per hepatology, poor nutrition is barrier to transplant, recommended DHT. - DHT placed 08/01, TFs started 08/02. - TF changed to nocturnal only to promote PO intake during the day. - Nutrition following, appreciate recs. - VitD 94717 U qweekly + multivitamin without iron started 07/31. 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 Of note, A1c wi ll not be accurate due to frequent transfusions for his spur cell anemia. Was on carb control diet but changed to regular to encourage more PO intake. - PM NPH 66 units - AM NPH 25 units - Lispro 15 U TID WM - mealtime SSI moderate - need to refer to outpatient diabetes clinic before DC - freestyle glucometer, lancets, test strips, humalog and humalin pens sent to [facility] to deter mine coverage/copay per DM RN request- appreciate assistance with educating patient on this new diagnosis. - Continue to encourage patient to administer his own insulin. - continue to emphasize importance of managing diabetes # Spur cell anemia # Iron overload Goal hemoglobin will be 8 once transplant imminent, otherwise ok to be a little below 7 unl ess he has new symptoms attributed to anemia or active bleeding. No evidence of bleeding. H DS. Hgb 6.9 but will defer transfusion due to margin of error of lab test as well as iron ov erload. No symptoms of anemia. - Continue home [id number] mg TID. - Zinc 50 mg PO daily. - Active type and screen - Transfuse to goal Hgb 8 if transplant imminent, otherwise will hold off on transfusion un less low-mid 6s or new symptoms # Red urine Likely due to iron chelator. -ctm # Non-anion gap metabolic acidosis Urine studies show evidence of RTA. 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 This was performed in the setting of recoveri ng acute kidney injury and most likely represents poor function during recovery. The signi ficance of this is marginal in setting of improving renal function". Recommend no intervent ions at this time. - ctm # Afib vs Aflutter May be related to myocardial iron depositionper cardiology. Should he have more episodes of SVT will consider increasing beta-orion and if unable to manage with that would conside r digoxin loading. Currently no recurrent episodes on BB. Hepatology recommend anesthesiolog y consult for operative evaluation given h/o SVT. Anesthesia discussed with cards possibilit y of stopping amio due to risk of hyperkalemia, however there are no alternative medications and as the patient would be precluded from transplant if he goes into afib with RVR, cards recommends continuing amiodarone. - Rate control: metoprolol tartrate 6.25mg BID - Rhythm control: 10g amio load complete 07/26. Maintenance dose 200 mg PO daily - Electrolytes:K > 4, Mg > 2 - Per cards note 08/03 "During his liver transplant surgery, recommend pacer/defibrillator pads on during if that is practical. Could also consider having RIJ sheath in place that cou ld accommodate temp transvenous pacing wire if patient were to develops persistent complete heart block or hemodynamically significant second degree AV block." #Hyperthyroidism, mild - Unlikely to be driving tachycardia - Outpatient follow up Diet:regular + TFs Sleep: Melatonin PRN Dispo: at top of transplant list, awaiting liver. He sister and mother are planning to take turns coming from [place] to provide care, once he g ets his transplant. Surrogate Decision Maker Primary Surrogate Decision Maker Doreen sister [phone] Secondary Surrogate Decision Maker Priyanka Rivera mother CODE:Full This patient was seen and examined by Dr. Hernadez, who agrees with the assessment and plan unless otherwise stated. Eliane Garza MD Internal Medicine [email or web address] signed by Jackie Hernadez MD at 08/13/2019 9:39 PM PDT Associated attestation - Jackie Hernadez MD - 08/13/2019 9:39 PM PDTGM attending I personally interviewed the patient, performed the tamez elements of the physical examinatio n, and personally formulated the assessment and plan with the resident. See resident Dr. Wally torres' note for details. 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 Mild encephalopathy and executive functioning issues, mild imp roved asterixis and slight slowing of speech and numbers. Balancing lactulose dosing with BM frequency. Rest of plan per excellent team note.Angela Thurston - 08/12/2019 6:43 AM PDTFormatt ing of this note might be different from the original. PA Student Progress Note Attending Physician: Jackie Hernadez MD Author: Angela Thurston Hospital Day: 26 Interval hx: Pt is cheerful, sitting comfortable in the hospital bed and is looking forward to his siste r and mother visiting from [place] later in the morning.Pt reports feeling well over night, but a bit groggy this morning. He did not have to wake up to use the bathroom based on recent d iarrhea symptoms from two nights prior.States he had about five BMs over the past 24 with a soft to watery consistency. Pt endorses getting up and walking around last evening. Pt states that at some point during the night his FT became disconnected, spilling enteral nutrition onto his bed resulting in Nurse assisting in clean-up and new bedding. Potentially less nutrition delivered based on story. Subjective: Doug Lawson is a 54 y.o. 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 Pt is on da y of hospital stay after being BIBA to [facility] with AMS and CBG 584 without previous hx of diabetes leading to [facility] admission for HRS 2/2 ESLD c/b HE. Pt developed SVT resultin g in admission to MICU where he was loaded with amiodarone before being transferred to the [facility] on 07/22 where he is being optimized nutritionally and medically before liver transplant . Active Medications: amiodarone (CORDARONE) tablet 200 mg, 200 mg, oral, DAILY cholecalciferol (VITAMIN D3) capsule 50,000 Units, 50,000 Units, oral, Q7D deferiprone tab 2,000 mg, 2,000 mg, oral, TID dextrose 50 % in water IV 25 mL, 25 mL, intravenous, PRN diclofenac (VOLTAREN) 1 % gel 4 g, 4 g, topical, QID PRN glucagon (GLUCAGEN) injection 1 mg, 1 mg, intramuscular, PRN glucose chewable tablet 16 g, 16 g, oral, PRN insulin lispro (HUMALOG) injection 1-16 Units, 1-16 Units, subcutaneous, QID insulin lispro (HUMALOG) injection 15 Units, 15 Units, subcutaneous, TID W/MEALS insulin NPH (HUMULIN N) injection 25 Units, 25 Units, subcutaneous, BEFORE BREAKFAST insulin NPH (HUMULIN N) injection 66 Units, 66 Units, subcutaneous, HS lactulose (ENULAC) 10 g, 15 mL, oral, QPM lactulose (ENULAC) 10 g, 15 mL, oral, Q2H PRN lactulose (ENULAC) liquid 20 g, 30 mL, oral, QAM magnesium oxide (MAG-OX) tablet 400 mg, 400 mg, oral, DAILY melatonin tablet 3 mg, 3 mg, oral, HS PRN metoprolol tartrate (LOPRESSOR) tablet 6.25 mg, 6.25 mg, oral, BID midodrine (PROAMITINE) tablet 10 mg, 10 mg, oral, TID multivitamin (THERA VITAMIN) 1 tablet, 1 tablet, oral, DAILY ondansetron (ZOFRAN) tablet 4 mg, 4 mg, oral, Q8H PRN polyethylene glycol (MIRALAX) packet 8.5 g, 8.5 g, oral, DAILY PRN rifAXIMin (XIFAXAN) tablet 550 mg, 550 mg, oral, BID Physical Examination: Last Vitals: BP 108/52 (BP Location: Left upper arm, Patient Position: Lying on back) | Pu lse 65 | Temp 36.8 C (98.2 F) (Oral) | Resp 14 | Ht 1.803 m (5' 11") | Wt 96.8 kg (2 13 lb 6.5 oz) | SpO2 100% | BMI 29.76 kg/m | BSA 2.2 m 24 Hour Vital Min/Max: Systolic (24hrs), Av , Min:105 , Max:128 Diastolic (24hrs), Av, Min:43, Max:54 Pulse Min: 64 Max: 70 Temp Min: 36.8 C (98.2 F) Max: 37 C (98.6 F) Resp Min: 14 Max: 16 SpO2 Min: 100 % Max: 100 % Intake/Output Summary (Last 24 hours) at 08/12/2019 0643 Last data filed at 08/12/2019 0545 Gross per 24 hour Intake 3128 ml Output 675 ml Net 2453 ml General Appearance: Awake, chroniclly ill appearing, alert and oriented, NAD HEENT: Normocephalic, atraumatic. Scleral icterus present. PERRLA, EOMI Lungs: CTAB, no w/r/r, normal respiratory effort. Respiratory: RRR, normal S1 and S2, 2/6 holosystolic murmur heard throughout. . Abdomen: soft, nontender, nondistended, +BS Cardiovascular: RRR, normal S1 and S2, 2/6 holosystolic murmur heard throughout Abdominal:soft, nontender, nondistended, +BS Extremities/MSK:3+ pitting edema to mid delgadillo, sacral edema Skin: Bronze, jaundiced complexion. Leukonychia (Sadiq nails). Spider telangectasia's prese nt on abdomen and chest. Warm, dry. Neurologic: Mild asterixis up from yesterday. CN II-XII intact. Finger to nose choppy but a ccurate. Speech is slurred but appropriate and linear. Psych: Appropriate mood and affect for situation; friendly and cooperative with linear spee ch and thought. Laboratory: CBC with diff last 72 hours (or 3 results) Recent Labs 08/10/19 0449 08/11/19 0548 WBC 4.55 4.14 HB 6.8* 6.9* HCT 20.5* 20.4* PLT 49* 54* Chemistries last 72 Hours (or 3 results): Recent Labs 08/10/1944808/11/19 0548 NA 130* 133* K 4.6 4.6 CL 101 103 BICARB 19* 20* BUN 71* 73* CR 1.40* 1.31* CA 8.9 8.7 MG 2.6 2.4 PO4 3.1 3.9 AST 82* 91* ALT 54 56 AP 212* 211* TBILI 8.8* 9.5* TP 6.5 6.4 ALB 3.0* 3.1* Lab Results Component Value Date INRPT 3.42 08/11/2019 Meld 08/11: 32 Micro: None Pending: None Imaging Interpretation: 07/17/2019 US with Dopplers IMPRESSION: Cirrhotic liver morphology with findings of portal hypertension. Unremarkable Doppler ultrasound without evidence of venous thrombosis. Cholelithiasis without evidence of cholecystitis. Reitan Test for Hepatic Encephalopathy: Part A: Scored at 99 seconds Part B: greater than cut-off score of 273 Brief Summary: Doug Lawson is a 54 y.o. 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 Pt is on da y 26 of hospital stay after being BIBA to [facility] with AMS and CBG 584 without previous hx of diabetes leading to [facility] admission for HRS 2/2 ESLD c/b HE. Pt developed SVT resultin g in admission to MICU where he was loaded with amiodarone before being transferred to the [facility] on 07/22 where he is being optimized nutritionally and medically before liver transplant . Assessment and Plan: # ESLD 2/2 ETOH and spur cell anemia requiring frequent transfusion leading to secondary he machromatosis. # Hepatic encephalopathy Encephalopathy significantly improved from discharge, A&Ox4/4 with wax and wane characteris tic. Pt on top of transplant list with MELD-NA 32 last calc on 08/11. Anesthesia consulted for preoperative eval and risk assessment; est ASA class 4, strongly r ecommended to stop amio but no alternative per cards (see "afib vs aflutter" below) Recommended to consider continuous renal replacement therapy (CRRT) intra-op if K is diffic ult to control on floor or if urine output decreases, as well as K monitoring and Mg replace ment intraop. Should anticipate significant arrhythmias intra-op even under ideal circumstan jake that would necessitate rapid cardioversion/defibrillation Dx: Daily CMP and INR - to calculate MELD daily per transplant request Ttx: - lactulose 45g qd with 30g in AM 15g PM. Goal BMs at 3-4 daily. - Rifaximin 550mg oral QID #KAR on CKD KAR likely prerenal, BUN:Cr 73:1.31. Patient at high risk for HRS, also underlying kidney d ysfunction 2/2 nephropathy, hemochromatosis. Urine Na consistently below 10. S/p fluids, alb umin (most recently 08/07). - strict I&Os - Midodrine 10 mg TID - continue to monitor Cr #Non-infectious Diarrhea: Pt reports three days of watery diarrhea without blood or mucus t hat has since improved. Pt reports return to normal stools since 21:00 on 08/11. High lactul ose dose possible reason for transient diarrhea. Resolution coincides with decrease in lactu lose dose over the prior two days. Will follow closely to monitor resolution. # Nutrition Per hepatology, poor nutrition is barrier to transplant, recommended DHT. - DHT placed 08/01, TFs started 08/02. - TF changed to nocturnal only to promote PO intake during the day. - Nutrition following, appreciate recs. - VitD 66556 U qweekly + multivitamin without iron started 07/31. #Diabetes Mellitus New diagnosis this admission., A1c will not be accurate due to frequent transfusions for hi s spur cell anemia. Regular diet to encourage more PO intake. Morning CBG have been elevated in high 200s over pervious week; will make adjustments to in sulin as noted below. - PM NPH 66 units - AM NPH 25 units - Lispro 15 U TID WM - D/C SSI - adult educator reference - need to refer to outpatient diabetes clinic before DC - freestyle glucometer, lancets, test strips, humalog and humalin pens sent to [facility] to deter mine coverage/copay per DM RN request- appreciate assistance with educating patient on this new diagnosis. Continue to encourage patient to administer his own insulin. # Spur cell anemia # Iron overload Goal hemoglobin will be 8 once transplant imminent, otherwise ok to be a little below 7 unl ess he has new symptoms attributed to anemia or active bleeding. No evidence of bleeding. Hgb6.9but will defer transfusion due to margin of error of lab test as well as iron over load. No symptoms of anemia. - Continue home [id number] mg TID. - Active type and screen - Transfuse to goal Hgb 8 if transplant imminent, otherwise will hold off on transfusion un less low-mid 6s or new symptoms. # Red urine Differential includes conjugated hyperbilirubinemia though due to cirrhosis this is unlikel y as this condition is more likely to produce unconjugated hyperbilirubinemia. Most likely due to Deferiprone as this is a common side effect. -ctm Diet:regular + TFs Sleep: Melatonin PRN Dispo: at top of transplant list, awaiting liver. He sister and mother are planning to take turns coming from [place] to provide care, once he g ets his transplant. They will be herenext week (08/12). Surrogate Decision Maker Primary Surrogate Decision Maker Doreen sister [phone] Secondary Surrogate Decision Maker Priyanka Rivera mother CODE:Full This patient was seen and examined by Dr. Hernadez, who agrees with the assessment and plan . Angela NAIK Student [facility] [employer] Pager [phone] Associated attestation - Zahida Grimaldo MD - 08/12/2019 5:44 PM PDTAgree with PA Student Nixon rivera's assessment and plan as outlined in note. This is a 54 yo male with ESLD c/b spur cell anemia requiring numerous transfusions with subsequent hemochromatosis who was originally a dmitted with encephalopathy with now prolonged hospital course (day 26). Found to have new d iagnosis of diabetes thought 2/2 iron deposition. Course c/b by SVT requiring MICU admission , now resolved, optimizing strength and nutrition while awaiting liver transplant. Issue with TF tubing leaking last night. Otherwise no new complaints. Vitals unremarkable. Exam with scleral icterus, jaundice, bronze appearing skin, no asterixis, AAOx3. MELD 33. La bs notable for BUN 73, Cr 1.3, largely stable. No leukocytosis. Stable anemia; Hgb 7. Glucos e between 86-163. Problems: # ESLD # spur cell anemia # secondary hemochromatosis # h/o SVT, on amiodarone # acute kidney injury # diabetes A/P Continue nocturnal tube feeds and regular daily PO intake to optimize nutrition and work wi th PT while awaiting transplant. Insulin continues to be adjusted with improving blood sugar s. MELD 33, at top of transplant list. Continue lactulose titrated to 3-4 BMs/ day for HE. Zahida Grimaldo MD PGY-3, Internal MedicineChoHenrique MD - 08/12/2019 6:21 AM PDTFormatting of this not e might be different from the original. Hepatology Inpatient Consult Follow-Up Note Name: Doug Lawson Etiology of Liver Disease: ETOH Cirrhosis Blood type: A+ Status:Listed MELD-Na score: 33 at 08/12/2019 6:37 AM MELD score: 32 at 08/12/2019 6:37 AM Calculated from: Serum Creatinine: 1.29 mg/dL at 08/12/2019 6:37 AM Serum Sodium: 135 mmol/L at 08/12/2019 6:37 AM Total Bilirubin: 10.8 mg/dL at 08/12/2019 6:37 AM INR(ratio): 3.55 INR at 08/12/2019 6:37 AM Age: 54 years A/P: Mr. Lawson is a 54 yo man with spur cell anemia requiring chronic transfusions c/b iron over load, EtOH cirrhosis c/b ascites.Blood type A+, listed for liver transplant,transferred for AMS and falls found to have hyperglycemia and renal insufficiency, hospital course compl icated by SVT requiring ICU transfer and amiodarone drip. 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 Transplant infectious disease hasalso weighed in,with no e/o infection/sepsis as etiology of SVT/afib. In regard to his tachyarrythmia, his cardiac f unction appears to be compensated and is not a contraindication for transplantper se. Has been titrated off amiodarone GTT and downgraded to medicine floors. Tachyarrythmia has been wellcontrolled with PO amiodarone and metoprolol and perdiscussions withEP attending Elizabeth Mcintyre, hisSVTs should not preclude pt from transplant and can be managed in the intra/ clara-operative period. If difficult to control despite amio/metop, theycould also offer ab lative therapies prior to transplant. Patient has several risk factors for post-LT heart failure though, including ETOH as etiolo gy of heart failure, depressed EF 55-60% (low for hyperdynamics of cirrhosis patient), and i tom deposition in myocardium.Acknowledging these risks, consensus was to proceed with OLT. After discussion with transplantanesthesia and cardiology, will continue amiodarone for h istachyarrythmia. While patient awaits for OLT, would continue to optimize his nutrition with enteral feeding and continue physical therapy/occupationatal therapy. Recommendations: -continue DHT feedingfor supplemental nutrition; f/u nutrition recsre: daily calorie co unts -continue PT/OT to improve functional status - continue rifaximin/lactulose for 3-4 BMs/day -would hold off on transfusing now; continue daily CBC and will weigh risks/benefits of tra nsfusion as we monitor patient clinically We will continue to follow along with you. Please page with any questions or concerns. This patient was staffed with , who agrees with above. Henrique Chapa MD Gastroenterology & Hepatology Fellow Pager:[phone] IE/S: Doing well this morning, ambulating in the hallway. O: Medications: Medications Scheduled Medication Dose/Rate, Route, Frequency Last Action amiodarone (CORDARONE) tablet 200 mg 200 mg, oral, DAILY Given: 08/11 823 cholecalciferol (VITAMIN D3) capsule 50,000 Units 50,000 Units, oral, Q7D Given: 08/07 133 2 deferiprone tab 2,000 mg 2,000 mg, oral, TID Given: 08/11 2104 insulin lispro (HUMALOG) injection 1-16 Units 4 Units, subQ, QID Given: 08/11 748 insulin lispro (HUMALOG) injection 15 Units 15 Units, subQ, TID W/MEALS Given: 08/11 154 insulin NPH (HUMULIN N) injection 25 Units 25 Units, subQ, BEFORE BREAKFAST Given: 08/11 0 748 insulin NPH (HUMULIN N) injection 66 Units 66 Units, subQ, HS Given: 08/11 2253 lactulose (ENULAC) 10 g 15 mL, oral, QPM Ordered lactulose (ENULAC) liquid 20 g 30 mL, oral, QAM Ordered magnesium oxide (MAG-OX) tablet 400 mg 400 mg, oral, DAILY Given: 08/11 823 metoprolol tartrate (LOPRESSOR) tablet 6.25 mg 6.25 mg, oral, BID Given: 08/11 2045 midodrine (PROAMITINE) tablet 10 mg 10 mg, oral, TID Given: 08/11 2045 multivitamin (THERA VITAMIN) 1 tablet 1 tablet, oral, DAILY Given: 08/11 823 rifAXIMin (XIFAXAN) tablet 550 mg 550 mg, oral, BID Given: 08/11 2045 PRN Medication Dose/Rate, Route, Frequency Last Action dextrose 50 % in water IV 25 mL 25 mL, IV, PRN Ordered diclofenac (VOLTAREN) 1 % gel 4 g 4 g, top, QID PRN Given: 07/23 931 glucagon (GLUCAGEN) injection 1 mg 1 mg, IM, PRN Ordered glucose chewable tablet 16 g 16 g, oral, PRN Ordered lactulose (ENULAC) 10 g 10 g, oral, Q2H PRN Given: 07/28 401 melatonin tablet 3 mg 3 mg, oral, HS PRN Given: 08/05 2151 ondansetron (ZOFRAN) tablet 4 mg 4 mg, oral, Q8H PRN Given: 08/05 0245 polyethylene glycol (MIRALAX) packet 8.5 g 8.5 g, oral, DAILY PRN Ordered Vitals: Last 24 hour min/max Temp: 36.8 C (98.2 F) Temp Min: 36.8 C (98.2 F) Max: 37 C (98.6 F) Pulse: 65 Pulse Min: 64 Max: 70 Resp: 14 Resp Min: 14 Max: 16 BP: 108/52 BP Min: 105/47 Max: 128/44 SpO2: 100 % SpO2 Min: 100 % Max: 100 % Body mass index is 29.76 kg/m. Exam: Gen:NAD HEENT: DHT in R nares c/d/i CV:RRR+ holosystolic murmur Abd: Soft, NT,tympanic to percussion and moderately distended Neuro: No asterixis Labs: Recent Labs 08/10/1944808/11/19 05 WBC 4.55 4.14 HB 6.8* 6.9* HCT 20.5* 20.4* PLT 49* 54* Recent Labs 08/09/19 0439 08/10/1944808/11/19 0548 08/11/19205608/11/19224508/12/19612 NA 128* -- 130* -- 133* -- -- -- -- K 4.8 -- 4.6 -- 4.6 -- -- -- -- CL 101 -- 101 -- 103 -- -- -- -- BICARB 20* -- 19* -- 20* -- -- -- -- BUN 74* -- 71* -- 73* -- -- -- -- CR 1.41* -- 1.40* -- 1.31* -- -- -- -- GLU 217* < > 145* < > 199* < > 148* 147* 86 CA 9.0 -- 8.9 -- 8.7 -- -- -- -- AST 91* -- 82* -- 91* -- -- -- -- ALT 61* -- 54 -- 56 -- -- -- -- AP 208* -- 212* -- 211* -- -- -- -- TBILI 9.9* -- 8.8* -- 9.5* -- -- -- -- TP 6.7 -- 6.5 -- 6.4 -- -- -- -- ALB 3.3* -- 3.0* -- 3.1* -- -- -- -- ANIONGAP 7 -- 10 -- 10 -- -- -- -- ANIONALBCOR 8 -- 12* -- 12* -- -- -- -- < > = values in this interval not displayed. Labs: Lab Results Component Value Date MG 2.4 08/11/2019 Lab Results Component Value Date INRPT 3.42 (H) 08/11/2019 No results found for: FK506 Imaging and Other Studies: 07/17/2019 US with Dopplers IMPRESSION: Cirrhotic liver morphology with findings of portal hypertension. Unremarkable Doppler ultrasound without evidence of venous thrombosis. Cholelithiasis without evidence of cholecystitis. MELD-Na score: 32 at 08/11/2019 5:48 AM MELD score: 31 at 08/11/2019 5:48 AM Calculated from: Serum Creatinine: 1.31 mg/dL at 08/11/2019 5:48 AM Serum Sodium: 133 mmol/L at 08/11/2019 5:48 AM Total Bilirubin: 9.5 mg/dL at 08/11/2019 5:48 AM INR(ratio): 3.42 INR at 08/11/2019 5:48 AM Age: 54 years Associated attestation - Mariaa Gamez MD - 08/12/2019 9:17 PM PDTHepatology Attending DOS: 08/12/2019 I personally interviewed the patient, performed the pertinent parts of the physical examina tion and personally formulated the plan with the fellow. I agree with the fellow's document ation as outlined above. MD Mariaa Sanchez MD [facility] [address] [place] [address] Angela Thurston - 08/11/2019 1:31 PM PDTFormatting of this note might be different from the martha ginal. 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 KAR on chronic kidney disease due to HRS 24h Events: Pt reports watery diarrhea occurring eight times per day for the previous two days though s tates this has since resolved. NSTR otherwise. Subjective: Reports frequent watery diarrhea over the previous 2-3 days with 8 BMs per day and througho ut the night. Has since decreased since 21:00 on 08/10 back to normal levels. Otherwise cheerful, states he slept well last night, has had an appetite and has been up wa lking around at various times throughout the day. States his aunt and uncle are coming from local area to visit. Denies any new onset pain, leg swelling or redness. Denies CP, SOB or palpitations. Active Medications: amiodarone (CORDARONE) tablet 200 mg, 200 mg, oral, DAILY cholecalciferol (VITAMIN D3) capsule 50,000 Units, 50,000 Units, oral, Q7D deferiprone tab 2,000 mg, 2,000 mg, oral, TID dextrose 50 % in water IV 25 mL, 25 mL, intravenous, PRN diclofenac (VOLTAREN) 1 % gel 4 g, 4 g, topical, QID PRN glucagon (GLUCAGEN) injection 1 mg, 1 mg, intramuscular, PRN glucose chewable tablet 16 g, 16 g, oral, PRN insulin lispro (HUMALOG) injection 1-16 Units, 1-16 Units, subcutaneous, QID insulin lispro (HUMALOG) injection 15 Units, 15 Units, subcutaneous, TID W/MEALS insulin NPH (HUMULIN N) injection 25 Units, 25 Units, subcutaneous, BEFORE BREAKFAST insulin NPH (HUMULIN N) injection 66 Units, 66 Units, subcutaneous, HS lactulose (ENULAC) 10 g, 15 mL, oral, QPM lactulose (ENULAC) 10 g, 15 mL, oral, Q2H PRN lactulose (ENULAC) liquid 20 g, 30 mL, oral, QAM magnesium oxide (MAG-OX) tablet 400 mg, 400 mg, oral, DAILY melatonin tablet 3 mg, 3 mg, oral, HS PRN metoprolol tartrate (LOPRESSOR) tablet 6.25 mg, 6.25 mg, oral, BID midodrine (PROAMITINE) tablet 10 mg, 10 mg, oral, TID multivitamin (THERA VITAMIN) 1 tablet, 1 tablet, oral, DAILY ondansetron (ZOFRAN) tablet 4 mg, 4 mg, oral, Q8H PRN polyethylene glycol (MIRALAX) packet 8.5 g, 8.5 g, oral, DAILY PRN rifAXIMin (XIFAXAN) tablet 550 mg, 550 mg, oral, BID Physical Exam: Last 24 hour min/max Temp: 37 C (98.6 F) Temp Min: 36.4 C (97.5 F) Max: 37.1 C (98.8 F) Pulse: 64 Pulse Min: 60 Max: 67 Resp: 16 Resp Min: 16 Max: 16 BP: 128/44 BP Min: 106/52 Max: 130/47 SpO2: 100 % SpO2 Min: 100 % Max: 100 % Body mass index is 26.41 kg/m. Intake/Output Summary (Last 24 hours) at 08/11/2019 1333 Last data filed at 08/11/2019 1126 Gross per 24 hour Intake 2293 ml Output 1195 ml Net 1098 ml General: Awake, chroniclly ill appearing, alert and oriented, NAD HEENT: Normocephalic, atraumatic. Scleral icterus present. PERRLA, EOMI Lungs: CTAB, no w/r/r, normal respiratory effort. Neck: JVP not present Cardiovascular: RRR, normal S1 and S2, 2/6 holosystolic murmur heard throughout. . Abdomen: soft, nontender, nondistended, +BS Extremities: 2+ BLE edema Skin: Bronze, jaundiced complexion. Leukonychia (Sadiq nails). Spider telangectasia's prese nt on abdomen and chest. Warm, dry. Neuro: CN II-XII intact. Finger to nose choppy but accurate. Speech is slurred but appropri ate and linear. Psych: Appropriate mood and affect for situation; friendly and cooperative with linear spee ch and thought. MELD: 34 (08/06) Labs: Chemistries: Last 72 Hours (or 3 results) - Refreshable Recent Labs 08/09/19 43808/10/1944808/11/19 0548 08/11/19 0731 08/11/19 0743 08/11/19 1326 NA 128* -- 130* -- 133* -- -- -- K 4.8 -- 4.6 -- 4.6 -- -- -- CL 101 -- 101 -- 103 -- -- -- BICARB 20* -- 19* -- 20* -- -- -- BUN 74* -- 71* -- 73* -- -- -- CR 1.41* -- 1.40* -- 1.31* -- -- -- GLU 217* < > 145* < > 199* 236* 239* 124* CA 9.0 -- 8.9 -- 8.7 -- -- -- MG 2.3 -- 2.6 -- 2.4 -- -- -- PO4 3.3 -- 3.1 -- 3.9 -- -- -- < > = values in this interval not displayed. Liver Tests: Last 72 hours (or 3 results) Recent Labs 08/09/1943808/10/1944808/11/19 0548 AST 91* 82* 91* ALT 61* 54 56 TBILI 9.9* 8.8* 9.5* AP 208* 212* 211* ALB 3.3* 3.0* 3.1* TP 6.7 6.5 6.4 CBC with diff last 72 hours (or 3 results) - Refreshable Recent Labs 08/09/1943808/10/1944808/11/19 0548 WBC 4.27 4.55 4.14 HB 6.9* 6.8* 6.9* HCT 21.2* 20.5* 20.4* PLT 52* 49* 54* Micro: None Imaging: None Assessment and Plan: Doug Lawson is a 54 y.o. 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 Pt is on da y 25 of hospital stay after being BIBA to [facility] with AMS and CBG 584 without previous hx of diabetes leading to [facility] admission for HRS 2/2 ESLD c/b HE. Pt developed SVT resultin g in admission to MICU where he was loaded with amiodarone before being transferred to the [facility] on 07/22 where he is being optimized nutritionally and medically before liver transplant . # ESLD 2/2 ETOH and spur cell anemia requiring frequent transfusion leading to secondary he machromatosis. # Hepatic encephalopathy Encephalopathy significantly improved from discharge, A&Ox4/4 with wax and wane characteris tic. Pt on top of transplant list with MELD-NA 34 last calc on 08/06. Anesthesia consulted for preoperative eval and risk assessment; est ASA class 4, strongly r ecommended to stop amio but no alternative per cards (see "afib vs aflutter" below) Recommended to consider continuous renal replacement therapy (CRRT) intra-op if K is diffic ult to control on floor or if urine output decreases, as well as K monitoring and Mg replace ment intraop. Should anticipate significant arrhythmias intra-op even under ideal circumstan jake that would necessitate rapid cardioversion/defibrillation Dx: Daily CMP and INR - to calculate MELD daily per transplant request Ttx: - lactulose 45g qd with 30g in AM 15g PM. Goal BMs at 3-4 daily. - Rifaximin 550mg oral QID #KAR on CKD KAR likely prerenal, BUN:Cr 73:1.31. Patient at high risk for HRS, also underlying kidney d ysfunction 2/2 nephropathy, hemochromatosis. Urine Na consistently below 10. S/p fluids, alb umin (most recently 08/07). - strict I&Os - Midodrine 10 mg TID - continue to monitor Cr #Non-infectious Diarrhea: Pt reports three days of watery diarrhea without blood or mucus t hat has since improved. Pt reports return to normal stools since 21:00 on 08/11. High lactul ose dose possible reason for transient diarrhea. Resolution coincides with decrease in lactu lose dose over the prior two days. Will follow closely to monitor resolution. # Nutrition Per hepatology, poor nutrition is barrier to transplant, recommended DHT. - DHT placed 08/01, TFs started 08/02. - TF changed to nocturnal only to promote PO intake during the day. - Nutrition following, appreciate recs. - VitD 46466 U qweekly + multivitamin without iron started 07/31. #Diabetes Mellitus New diagnosis this admission., A1c will not be accurate due to frequent transfusions for hi s spur cell anemia. Regular diet to encourage more PO intake. Morning CBG have been elevated in high 200s over pervious week; will make adjustments to in sulin as noted below. - PM NPH 66 units - AM NPH 25 units - Lispro 15 U TID WM - D/C SSI - adult educator reference - need to refer to outpatient diabetes clinic before DC - freestyle glucometer, lancets, test strips, humalog and humalin pens sent to [facility] to deter mine coverage/copay per DM RN request- appreciate assistance with educating patient on this new diagnosis. Continue to encourage patient to administer his own insulin. # Spur cell anemia # Iron overload Goal hemoglobin will be 8 once transplant imminent, otherwise ok to be a little below 7 unl ess he has new symptoms attributed to anemia or active bleeding. No evidence of bleeding. Hgb 6.9 but will defer transfusion due to margin of error of lab test as well as iron overlo ad. No symptoms of anemia. - Continue home [id number] mg TID. - Active type and screen - Transfuse to goal Hgb 8 if transplant imminent, otherwise will hold off on transfusion un less low-mid 6s or new symptoms. # Red urine Differential includes conjugated hyperbilirubinemia though due to cirrhosis this is unlikel y as this condition is more likely to produce unconjugated hyperbilirubinemia. Most likely due to Deferiprone as this is a common side effect. -ctm Diet:regular + TFs Sleep: Melatonin PRN Dispo: at top of transplant list, awaiting liver. He sister and mother are planning to take turns coming from [place] to provide care, once he g ets his transplant. They will be herenext week (08/12). Surrogate Decision Maker Primary Surrogate Decision Maker Doreen norwood [phone] Secondary Surrogate Decision Maker Priyanka Rivera mother CODE:Full This patient was seen and examined by Dr. Hernadez, who agrees with the assessment and plan . IRASEMA Vargas, [facility] Associated attestation - Jackie Hernadez MD - 08/11/2019 6:09 PM PDT GM attending A student and a resident assisted with documenting this service. I saw the patient and revi ewed and verified all information documented by the student and resident, and made modificat ions to such information, when appropriate. " I'm doing great " family members visiting today.. Last Vitals: BP 105/47 (BP Location: Left upper arm, Patient Position: Lying on back) | Pu lse 64 | Temp 36.9 C (98.4 F) (Oral) | Resp 16 | Ht 1.803 m (5' 11") | Wt 85.9 kg (1 89 lb 6 oz) | SpO2 100% | BMI 26.41 kg/m | BSA 2.07 m 24 Hour Vital Min/Max: Systolic (24hrs), Av , Min:105 , Max:130 Diastolic (24hrs), Av, Min:43, Max:52 Pulse Min: 63 Max: 67 Temp Min: 36.9 C (98.4 F) Max: 37.1 C (98.8 F) Resp Min: 16 Max: 16 SpO2 Min: 100 % Max: 100 % Intake/Output Summary (Last 24 hours) at 08/11/2019 1809 Last data filed at 08/11/2019 1600 Gross per 24 hour Intake 2318 ml Output 1395 ml Net 923 ml PE as detailed - no flap today Patients Hospital Problem List: Active Hospital Problems 1) Alcoholic cirrhosis of liver with ascites (HCC) 2) Chronic kidney disease 3) Hepatorenal syndrome (HCC) 4) SVT (supraventricular tachycardia) (HCC) 5) Anemia 6) 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 Appears over treatment with lactulose, pulled back and his diarrhea improved. Rest per excellent student note.Eliane Garza MD - 7:05 AM PDT GENERAL MEDICINE PROGRESS NOTE Author: Eliane Garza MD Attending Physician: Jackie Hernadez MD Hospital Day: 25 ID: ESLD, afib, spur cell anemia, secondary hemochromatosis, KAR on CKD 24h Events: none Subjective: Watery diarrhea has improved since yesterday evening. A couple relatives are visiting today . Mr Lawson is feeling cheerful, denies any abdominal pain, leg swelling, dyspnea. Active Medications: amiodarone (CORDARONE) tablet 200 mg, 200 mg, oral, DAILY cholecalciferol (VITAMIN D3) capsule 50,000 Units, 50,000 Units, oral, Q7D deferiprone tab 2,000 mg, 2,000 mg, oral, TID dextrose 50 % in water IV 25 mL, 25 mL, intravenous, PRN diclofenac (VOLTAREN) 1 % gel 4 g, 4 g, topical, QID PRN glucagon (GLUCAGEN) injection 1 mg, 1 mg, intramuscular, PRN glucose chewable tablet 16 g, 16 g, oral, PRN insulin lispro (HUMALOG) injection 1-16 Units, 1-16 Units, subcutaneous, DAILY insulin lispro (HUMALOG) injection 1-16 Units, 1-16 Units, subcutaneous, QID insulin lispro (HUMALOG) injection 15 Units, 15 Units, subcutaneous, TID W/MEALS insulin NPH (HUMULIN N) injection 25 Units, 25 Units, subcutaneous, BEFORE BREAKFAST insulin NPH (HUMULIN N) injection 62 Units, 62 Units, subcutaneous, HS lactulose (ENULAC) 10 g, 15 mL, oral, Q2H PRN lactulose (ENULAC) 30 g, 45 mL, oral, TID magnesium oxide (MAG-OX) tablet 400 mg, 400 mg, oral, DAILY melatonin tablet 3 mg, 3 mg, oral, HS PRN metoprolol tartrate (LOPRESSOR) tablet 6.25 mg, 6.25 mg, oral, BID midodrine (PROAMITINE) tablet 10 mg, 10 mg, oral, TID multivitamin (THERA VITAMIN) 1 tablet, 1 tablet, oral, DAILY ondansetron (ZOFRAN) tablet 4 mg, 4 mg, oral, Q8H PRN polyethylene glycol (MIRALAX) packet 8.5 g, 8.5 g, oral, DAILY PRN rifAXIMin (XIFAXAN) tablet 550 mg, 550 mg, oral, BID Physical Exam: Last 24 hour min/max Temp: 37.1 C (98.8 F) Temp Min: 36.4 C (97.5 F) Max: 37.1 C (98.8 F) Pulse: 63 Pulse Min: 60 Max: 67 Resp: 16 Resp Min: 16 Max: 18 BP: 106/52 BP Min: 106/52 Max: 130/47 SpO2: 100 % SpO2 Min: 100 % Max: 100 % Body mass index is 26.41 kg/m. Intake/Output Summary (Last 24 hours) at 08/11/2019 0705 Last data filed at 08/11/2019 0250 Gross per 24 hour Intake 2780 ml Output 1370 ml Net 1410 ml General Appearance:Jaundiced, NAD, sitting up in bed. HEENT:Scleral icterus, EOMI, MMM. DHT in nose. Respiratory:CTAB, no wheeze or crackles Cardiovascular: RRR, 2/6 holosystolic murmur loudest at left sternal border Gastrointestinal:soft, non-tender, no rebound, no guarding Musculoskeletal:3+ pitting edema to mid [place], sacral edema Skin:Jaundiced, bronzed complexion. Gynecomastia. Telangectasias on abdomen and chest. Neurologic:AAOx3. Speech occasionally slurred (this is his baseline) but comprehensible a nd linear. Labs: Chemistries: Last 72 Hours (or 3 results) - Refreshable Recent Labs 08/09/19 0439 08/10/19 0449 08/10/19 2309 08/11/19 0250 08/11/19 0548 NA 128* -- 130* -- -- -- 133* K 4.8 -- 4.6 -- -- -- 4.6 CL 101 -- 101 -- -- -- 103 BICARB 20* -- 19* -- -- -- 20* BUN 74* -- 71* -- -- -- 73* CR 1.41* -- 1.40* -- -- -- 1.31* GLU 217* < > 145* < > 95 173* 199* CA 9.0 -- 8.9 -- -- -- 8.7 MG 2.3 -- 2.6 -- -- -- 2.4 PO4 3.3 -- 3.1 -- -- -- 3.9 < > = values in this interval not displayed. Lab Results Component Value Date AST 91 08/11/2019 ALT 56 08/11/2019 TBILI 9.5 08/11/2019 DIRBILI 4.2 07/07/2019 AP 211 08/11/2019 TP 6.4 08/11/2019 ALB 3.1 08/11/2019 CBC with diff last 72 hours (or 3 results) - Refreshable Recent Labs 08/09/19 0439 08/10/19 0449 08/11/19 0548 WBC 4.27 4.55 4.14 HB 6.9* 6.8* 6.9* HCT 21.2* 20.5* 20.4* PLT 52* 49* 54* Micro: no interval micro Imaging: no interval imaging Assessment and Plan: a 54 y/owith ESLD 2/2 EtOH c/b hepatic encephalopathy, ascites, spur cell anemia requiring chronic transfusions and resulting in iron overload, who presented with HRS and developed SVT resulting in admission to the MICU where he was loaded with amiodarone an d then was transferred to the floor on 07/22 where he is being optimized nutritionally and me dically before liver transplant. 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 Delirium remains likely due to ESLD. At top of transplant list. MELD-Na 32 on 08/11. -lactulose 30g in AM 15g PM. Goal BMs at 3-4 daily,rifaximin - Anesthesia consulted for preoperative eval and risk assessment - est ASA class 4 - recommended to consider CRRT intra-op if K is difficult to control on floor or if urine output decreases, as well as K monitoring and Mg replacement intraop. - should anticipate significant arrhythmias intra-op even under ideal circumstances that w ould necessitate rapid cardioversion/defibrillation - Daily CMP and INR - to calculate MELD per transplant request # Diarrhea Two days of watery diarrhea with up to 8 bowel movements a day despite fewer doses of lactu lose. Initially concerned for c diff given sudden increase in bms, but have discontinued thi s test as diarrhea improved spontaneously. Suspect may have been high lactulose dose, will d ecrease dose as able to reach 3-4 bms daily and continue to monitor. #KAR on CKD KAR likely prerenal. Patient at high risk for HRS, also underlying kidney dysfunction 2/2 n ephropathy, hemochromatosis. Urine Na consistently below 10. Have been intermittently been g iving fluids, albumin (most recently 08/07). - strict I&Os - Midodrine 10 mg TID - continue to monitor Cr, stable # Nutrition Per hepatology, poor nutrition is barrier to transplant, recommended DHT. - DHT placed 08/01, TFs started 08/02. - TF changed to nocturnal only to promote PO intake during the day. - Nutrition following, appreciate recs. - VitD 28310 U qweekly + multivitamin without iron started 07/31. 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 Of note, A1c wi ll not be accurate due to frequent transfusions for his spur cell anemia. Was on carb control diet but changed to regular to encourage more PO intake. - increase PM NPH -> 66 units - AM NPH 25 units - Lispro 15 U TID WM - mealtime SSI moderate - DC 3 am SSI - need to refer to outpatient diabetes clinic before DC - freestyle glucometer, lancets, test strips, humalog and humalin pens sent to [facility] to deter mine coverage/copay per DM RN request- appreciate assistance with educating patient on this new diagnosis. Continue to encourage patient to administer his own insulin. # Spur cell anemia # Iron overload Goal hemoglobin will be 8 once transplant imminent, otherwise ok to be a little below 7 unl ess he has new symptoms attributed to anemia or active bleeding. No evidence of bleeding. H DS. Hgb 6.9 but will defer transfusion due to margin of error of lab test as well as iron ov erload. No symptoms of anemia. - Continue home [id number] mg TID. - Zinc 50 mg PO daily. - Active type and screen - Transfuse to goal Hgb 8 if transplant imminent, otherwise will hold off on transfusion un less low-mid 6s or new symptoms # Red urine Likely due to iron chelator. -ctm # Non-anion gap metabolic acidosis Urine studies show evidence of RTA. 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 This was performed in the setting of recoveri ng acute kidney injury and most likely represents poor function during recovery. The signi ficance of this is marginal in setting of improving renal function". Recommend no intervent ions at this time. - ctm # Afib vs Aflutter May be related to myocardial iron depositionper cardiology. Should he have more episodes of SVT will consider increasing beta-orion and if unable to manage with that would conside r digoxin loading. Currently no recurrent episodes on BB. Hepatology recommend anesthesiolog y consult for operative evaluation given h/o SVT. Anesthesia discussed with cards possibilit y of stopping amio due to risk of hyperkalemia, however there are no alternative medications and as the patient would be precluded from transplant if he goes into afib with RVR, cards recommends continuing amiodarone. - Rate control: metoprolol tartrate 6.25mg BID - Rhythm control: 10g amio load complete 07/26. Maintenance dose 200 mg PO daily - Electrolytes:K > 4, Mg > 2 - Per cards note 08/03 "During his liver transplant surgery, recommend pacer/defibrillator pads on during if that is practical. Could also consider having RIJ sheath in place that cou ld accommodate temp transvenous pacing wire if patient were to develops persistent complete heart block or hemodynamically significant second degree AV block." #Hyperthyroidism, mild - Unlikely to be driving tachycardia - Outpatient follow up Diet:regular + TFs Sleep: Melatonin PRN Dispo: at top of transplant list, awaiting liver. He sister and mother are planning to take turns coming from [place] to provide care, once he g ets his transplant. Surrogate Decision Maker Primary Surrogate Decision Maker Doreen sister [phone] Secondary Surrogate Decision Maker Priyanka Rivera mother CODE:Full This patient was seen and examined by Dr. Hernadez, who agrees with the assessment and plan unless otherwise stated. Eliane Garza MD Internal Medicine [id number] signed by Jackie Hernadez MD at 08/11/2019 11:59 PM PDT Associated attestation - Jackie Hernadez MD - 08/11/2019 11:59 PM PDTGM attending I personally interviewed the patient, performed the tamez elements of the physical examinatio n, and personally formulated the assessment and plan with the resident. See resident Dr. Wally oro's note for details. 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 7) Severe protein-calorie malnutrition (HCC) Agree with plan as outined in excellent progress note will decrease dose as able to reach 3-4 bms daily and continue to monitor with new diarrhea Henrique Chapa MD - 08/11/2019 6:33 AM PDT Hepatology Inpatient Consult Follow-Up Note Name: Doug Lawson Etiology of Liver Disease: ETOH Cirrhosis Blood type: A+ Status:Listed MELD-Na score: 32 at 08/11/2019 5:48 AM MELD score: 31 at 08/11/2019 5:48 AM Calculated from: Serum Creatinine: 1.31 mg/dL at 08/11/2019 5:48 AM Serum Sodium: 133 mmol/L at 08/11/2019 5:48 AM Total Bilirubin: 9.5 mg/dL at 08/11/2019 5:48 AM INR(ratio): 3.42 INR at 08/11/2019 5:48 AM Age: 54 years A/P: Mr. Lawson is a 54 yo man with spur cell anemia requiring chronic transfusions c/b iron over load, EtOH cirrhosis c/b ascites.Blood type A+, listed for liver transplant,transferred for AMS and falls found to have hyperglycemia and renal insufficiency, hospital course compl icated by SVT requiring ICU transfer and amiodarone drip. 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 Transplant infectious disease hasalso weighed in,with no e/o infection/sepsis as etiology of SVT/afib. In regard to his tachyarrythmia, his cardiac f unction appears to be compensated and is not a contraindication for transplantper se. Has been titrated off amiodarone GTT and downgraded to medicine floors. Tachyarrythmia has been wellcontrolled with PO amiodarone and metoprolol and perdiscussions withEP attending Elizabeth Mcintyre, hisSVTs should not preclude pt from transplant and can be managed in the intra/ clara-operative period. If difficult to control despite amio/metop, theycould also offer ab lative therapies prior to transplant. Patient has several risk factors for post-LT heart failure though, including ETOH as etiolo gy of heart failure, depressed EF 55-60% (low for hyperdynamics of cirrhosis patient), and i tom deposition in myocardium.Acknowledging these risks, consensus was to proceed with OLT. After discussion with transplantanesthesia and cardiology, will continue amiodarone for h istachyarrythmia. While patient awaits for OLT, would continue to optimize his nutrition with enteral feeding and continue physical therapy/occupationatal therapy. Recommendations: -okay to resume DHT feedingfor supplemental nutrition; f/u nutrition recsre: daily guadalupe linda counts -continue PT/OT to improve functional status - continue rifaximin/lactulose for 3-4 BMs/day -would hold off on transfusing now; continue daily CBC and will weigh risks/benefits of tra nsfusion as we monitor patient clinically We will continue to follow along with you. Please page with any questions or concerns. This patient was staffed with , who agrees with above. Henrique Chapa MD Gastroenterology & Hepatology Fellow Pager:[phone] IE/S: Tube feeds held overnight, with diarrhea resolved. O: Medications: Medications Scheduled Medication Dose/Rate, Route, Frequency Last Action amiodarone (CORDARONE) tablet 200 mg 200 mg, oral, DAILY Given: 08/10 754 cholecalciferol (VITAMIN D3) capsule 50,000 Units 50,000 Units, oral, Q7D Given: 08/07 133 2 deferiprone tab 2,000 mg 2,000 mg, oral, TID Given: 08/10 2222 insulin lispro (HUMALOG) injection 1-16 Units 4 Units, subQ, DAILY Given: 08/11 302 insulin lispro (HUMALOG) injection 1-16 Units 2 Units, subQ, QID Given: 08/10 756 insulin lispro (HUMALOG) injection 15 Units 7.5 Units, subQ, TID W/MEALS Given: 08/10 2054 insulin NPH (HUMULIN N) injection 25 Units 25 Units, subQ, BEFORE BREAKFAST Pt Administere d: 08/10 729 insulin NPH (HUMULIN N) injection 62 Units 62 Units, subQ, HS Given: 08/10 2310 lactulose (ENULAC) 30 g 30 g, oral, TID Given: 08/10 754 magnesium oxide (MAG-OX) tablet 400 mg 400 mg, oral, DAILY Given: 08/10 755 metoprolol tartrate (LOPRESSOR) tablet 6.25 mg 6.25 mg, oral, BID Given: 08/10 2058 midodrine (PROAMITINE) tablet 10 mg 10 mg, oral, TID Given: 08/10 2222 multivitamin (THERA VITAMIN) 1 tablet 1 tablet, oral, DAILY Given: 08/10 754 rifAXIMin (XIFAXAN) tablet 550 mg 550 mg, oral, BID Given: 08/10 2054 PRN Medication Dose/Rate, Route, Frequency Last Action dextrose 50 % in water IV 25 mL 25 mL, IV, PRN Ordered diclofenac (VOLTAREN) 1 % gel 4 g 4 g, top, QID PRN Given: 07/23 931 glucagon (GLUCAGEN) injection 1 mg 1 mg, IM, PRN Ordered glucose chewable tablet 16 g 16 g, oral, PRN Ordered lactulose (ENULAC) 10 g 10 g, oral, Q2H PRN Given: 07/28 401 melatonin tablet 3 mg 3 mg, oral, HS PRN Given: 08/05 2151 ondansetron (ZOFRAN) tablet 4 mg 4 mg, oral, Q8H PRN Given: 08/05 024 polyethylene glycol (MIRALAX) packet 8.5 g 8.5 g, oral, DAILY PRN Ordered Vitals: Last 24 hour min/max Temp: 37.1 C (98.8 F) Temp Min: 36.4 C (97.5 F) Max: 37.1 C (98.8 F) Pulse: 63 Pulse Min: 60 Max: 67 Resp: 16 Resp Min: 16 Max: 18 BP: 106/52 BP Min: 106/52 Max: 130/47 SpO2: 100 % SpO2 Min: 100 % Max: 100 % Body mass index is 26.41 kg/m. Exam: Gen:NAD HEENT: DHT in R nares c/d/i CV:RRR+ holosystolic murmur Abd: Soft, NT,tympanic to percussion and moderately distended Neuro: No asterixis Labs: Labs: Recent Labs 08/09/1943808/10/1944808/11/19 0548 WBC 4.27 4.55 4.14 HB 6.9* 6.8* 6.9* HCT 21.2* 20.5* 20.4* PLT 52* 49* 54* Recent Labs 08/09/1943808/10/1944808/10/19 23008/11/19 0250 08/11/19 0548 NA 128* -- 130* -- -- -- 133* K 4.8 -- 4.6 -- -- -- 4.6 CL 101 -- 101 -- -- -- 103 BICARB 20* -- 19* -- -- -- 20* BUN 74* -- 71* -- -- -- 73* CR 1.41* -- 1.40* -- -- -- 1.31* GLU 217* < > 145* < > 95 173* 199* CA 9.0 -- 8.9 -- -- -- 8.7 AST 91* -- 82* -- -- -- 91* ALT 61* -- 54 -- -- -- 56 AP 208* -- 212* -- -- -- 211* TBILI 9.9* -- 8.8* -- -- -- 9.5* TP 6.7 -- 6.5 -- -- -- 6.4 ALB 3.3* -- 3.0* -- -- -- 3.1* ANIONGAP 7 -- 10 -- -- -- 10 ANIONALBCOR 8 -- 12* -- -- -- 12* < > = values in this interval not displayed. Labs: Lab Results Component Value Date MG 2.4 08/11/2019 Lab Results Component Value Date INRPT 3.42 (H) 08/11/2019 No results found for: FK506 Imaging and Other Studies: 07/17/2019 US with Dopplers IMPRESSION: Cirrhotic liver morphology with findings of portal hypertension. Unremarkable Doppler ultrasound without evidence of venous thrombosis. Cholelithiasis without evidence of cholecystitis. MELD-Na score: 32 at 08/11/2019 5:48 AM MELD score: 31 at 08/11/2019 5:48 AM Calculated from: Serum Creatinine: 1.31 mg/dL at 08/11/2019 5:48 AM Serum Sodium: 133 mmol/L at 08/11/2019 5:48 AM Total Bilirubin: 9.5 mg/dL at 08/11/2019 5:48 AM INR(ratio): 3.42 INR at 08/11/2019 5:48 AM Age: 54 years Associated attestation - Mariaa Gamez MD - 08/11/2019 9:12 PM PDTHepatology Attending DOS: 08/11/2019 I personally interviewed the patient, performed the pertinent parts of the physical examina tion and personally formulated the plan with the fellow. I agree with the fellow's document ation as outlined above. MD Mariaa Sanchez MD [facility] [address] [place] [id number] Henrique Chapa MD - 08/10/2019 7:40 AM PDTFormatting of this note might be different fro m the original. Hepatology Inpatient Consult Follow-Up Note Name: Doug Lawson Etiology of Liver Disease: ETOH Cirrhosis Blood type: A+ Status:Listed MELD-Na score: 33 at 08/10/2019 4:49 AM MELD score: 31 at 08/10/2019 4:49 AM Calculated from: Serum Creatinine: 1.40 mg/dL at 08/10/2019 4:49 AM Serum Sodium: 130 mmol/L at 08/10/2019 4:49 AM Total Bilirubin: 8.8 mg/dL at 08/10/2019 4:49 AM INR(ratio): 3.29 INR at 08/10/2019 4:49 AM Age: 54 years A/P: Mr. Lawson is a 54 yo man with spur cell anemia requiring chronic transfusions c/b iron over load, EtOH cirrhosis c/b ascites.Blood type A+, listed for liver transplant,transferred for AMS and falls found to have hyperglycemia and renal insufficiency, hospital course compl icated by SVT requiring ICU transfer and amiodarone drip. 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 Transplant infectious disease hasalso weighed in,with no e/o infection/sepsis as etiology of SVT/afib. In regard to his tachyarrythmia, his cardiac f unction appears to be compensated and is not a contraindication for transplantper se. Has been titrated off amiodarone GTT and downgraded to medicine floors. Tachyarrythmia has been well controlled with PO amiodarone and metoprolol and perdiscussions withEP attending Dr Cedric Mcintyre, hisSVTs should not preclude pt from transplant and can be managed in the intra/p fransico-operative period. If difficult to control despite amio/metop, theycould also offer abl ative therapies prior to transplant. Patient has several risk factors for post-LT heart failure though, including ETOH as etiolo gy of heart failure, depressed EF 55-60% (low for hyperdynamics of cirrhosis patient), and i tom deposition in myocardium.Acknowledging these risks, consensus was to proceed with OLT. After discussion with transplantanesthesia and cardiology, will continue amiodarone for h istachyarrythmia. While patient awaits for OLT, would continue to optimize his nutrition with enteral feeding and continue physical therapy/occupationatal therapy. Recommendations: -continue DHT feedingfor supplemental nutrition; f/u nutrition recsre: daily calorie co unts -continue PT/OT to improve functional status - continue rifaximin/lactulose for 3-5 BM's daily -would hold off on transfusing now; continue daily CBC and will weigh risks/benefits of tra nsfusion as we monitor patient clinically We will continue to follow along with you. Please page with any questions or concerns. This patient was staffed with , who agrees with above. Henrique Chapa MD Gastroenterology & Hepatology Fellow Pager:[phone] IE/S: Ate full breakfast this morning. Denies confusion, has no complaints today. O: Medications: Medications Scheduled Medication Dose/Rate, Route, Frequency Last Action amiodarone (CORDARONE) tablet 200 mg 200 mg, oral, DAILY Given: 08/09 822 cholecalciferol (VITAMIN D3) capsule 50,000 Units 50,000 Units, oral, Q7D Given: 08/07 133 2 deferiprone tab 2,000 mg 2,000 mg, oral, TID Given: 08/09 2232 insulin lispro (HUMALOG) injection 1-16 Units 4 Units, subQ, DAILY Given: 08/10 253 insulin lispro (HUMALOG) injection 1-16 Units 2 Units, subQ, QID Given: 08/09 822 insulin lispro (HUMALOG) injection 15 Units 15 Units, subQ, TID W/MEALS Given: 08/09 1717 insulin NPH (HUMULIN N) injection 25 Units 25 Units, subQ, BEFORE BREAKFAST Pt Administere d: 08/10 729 insulin NPH (HUMULIN N) injection 62 Units 62 Units, subQ, HS Given: 08/09 2232 lactulose (ENULAC) 30 g 30 g, oral, TID Given: 08/09 822 magnesium oxide (MAG-OX) tablet 400 mg 400 mg, oral, DAILY Given: 08/09 821 metoprolol tartrate (LOPRESSOR) tablet 6.25 mg 6.25 mg, oral, BID Given: 08/09 2105 midodrine (PROAMITINE) tablet 10 mg 10 mg, oral, TID Given: 08/09 2233 multivitamin (THERA VITAMIN) 1 tablet 1 tablet, oral, DAILY Given: 08/09 822 rifAXIMin (XIFAXAN) tablet 550 mg 550 mg, oral, BID Given: 08/09 2106 PRN Medication Dose/Rate, Route, Frequency Last Action dextrose 50 % in water IV 25 mL 25 mL, IV, PRN Ordered diclofenac (VOLTAREN) 1 % gel 4 g 4 g, top, QID PRN Given: 07/23 931 glucagon (GLUCAGEN) injection 1 mg 1 mg, IM, PRN Ordered glucose chewable tablet 16 g 16 g, oral, PRN Ordered lactulose (ENULAC) 10 g 10 g, oral, Q2H PRN Given: 07/28 040 melatonin tablet 3 mg 3 mg, oral, HS PRN Given: 08/05 2151 ondansetron (ZOFRAN) tablet 4 mg 4 mg, oral, Q8H PRN Given: 08/05 245 polyethylene glycol (MIRALAX) packet 8.5 g 8.5 g, oral, DAILY PRN Ordered Vitals: Last 24 hour min/max Temp: 37.2 C (99 F) Temp Min: 36.8 C (98.2 F) Max: 37.2 C (99 F) Pulse: 64 Pulse Min: 63 Max: 68 Resp: 16 Resp Min: 16 Max: 18 BP: 111/52 BP Min: 100/48 Max: 111/52 SpO2: 100 % SpO2 Min: 99 % Max: 100 % Body mass index is 26.41 kg/m. Exam: Gen:NAD HEENT: DHT in R nares c/d/i CV:RRR+ holosystolic murmur Abd: Soft, NT,tympanic to percussion and moderately distended Neuro: No asterixis Labs: Recent Labs 08/08/19 0518 08/09/19 0439 08/10/19 0449 WBC 4.56 4.27 4.55 HB 6.7* 6.9* 6.8* HCT 20.3* 21.2* 20.5* PLT 43* 52* 49* Recent Labs 08/08/19 0518 08/09/19 0439 08/10/19 0449 08/10/19 0633 08/10/19 0733 NA 129* -- 128* -- 130* -- -- K 4.9 -- 4.8 -- 4.6 -- -- CL 101 -- 101 -- 101 -- -- BICARB 19* -- 20* -- 19* -- -- BUN 66* -- 74* -- 71* -- -- CR 1.41* -- 1.41* -- 1.40* -- -- GLU 242* < > 217* < > 145* 188* 195* CA 9.2 -- 9.0 -- 8.9 -- -- AST 98* -- 91* -- 82* -- -- ALT 64* -- 61* -- 54 -- -- AP 204* -- 208* -- 212* -- -- TBILI 9.9* -- 9.9* -- 8.8* -- -- TP 6.7 -- 6.7 -- 6.5 -- -- ALB 3.3* -- 3.3* -- 3.0* -- -- ANIONGAP 9 -- 7 -- 10 -- -- ANIONALBCOR 10 -- 8 -- 12* -- -- < > = values in this interval not displayed. Labs: Lab Results Component Value Date MG 2.6 08/10/2019 Lab Results Component Value Date INRPT 3.29 (H) 08/10/2019 No results found for: FK506 Imaging and Other Studies: 07/17/2019 US with Dopplers IMPRESSION: Cirrhotic liver morphology with findings of portal hypertension. Unremarkable Doppler ultrasound without evidence of venous thrombosis. Cholelithiasis without evidence of cholecystitis. MELD-Na score: 33 at 08/10/2019 4:49 AM MELD score: 31 at 08/10/2019 4:49 AM Calculated from: Serum Creatinine: 1.40 mg/dL at 08/10/2019 4:49 AM Serum Sodium: 130 mmol/L at 08/10/2019 4:49 AM Total Bilirubin: 8.8 mg/dL at 08/10/2019 4:49 AM INR(ratio): 3.29 INR at 08/10/2019 4:49 AM Age: 54 years Associated attestation - Mariaa Gamez MD - 08/11/2019 9:14 PM PDTHepatology Attending DOS: 08/10/2019 I personally interviewed the patient, performed the pertinent parts of the physical examina tion and personally formulated the plan with the fellow. I agree with the fellow's document ation as outlined above. MD Mariaa Sanchez MD [address] [place] [address] Eliane Garza MD - 08/10/2019 7:17 AM PDT GENERAL MEDICINE PROGRESS NOTE Author: Eliane Garza MD Attending Physician: Jackie Hernadez MD Hospital Day: 24 ID: ESLD, afib, spur cell anemia, secondary hemochromatosis 24h Events: none Subjective: Sitting up in bed with Halloween decorations in room, says he's feeling good today and eage rly waiting for his liver. Has been participating in administering insulin with encouragemen t, going for walks 2-3 times a day. Denies nausea, abdominal pain, his appetite is pretty go od. Active Medications: amiodarone (CORDARONE) tablet 200 mg, 200 mg, oral, DAILY cholecalciferol (VITAMIN D3) capsule 50,000 Units, 50,000 Units, oral, Q7D deferiprone tab 2,000 mg, 2,000 mg, oral, TID dextrose 50 % in water IV 25 mL, 25 mL, intravenous, PRN diclofenac (VOLTAREN) 1 % gel 4 g, 4 g, topical, QID PRN glucagon (GLUCAGEN) injection 1 mg, 1 mg, intramuscular, PRN glucose chewable tablet 16 g, 16 g, oral, PRN insulin lispro (HUMALOG) injection 1-16 Units, 1-16 Units, subcutaneous, DAILY insulin lispro (HUMALOG) injection 1-16 Units, 1-16 Units, subcutaneous, QID insulin lispro (HUMALOG) injection 15 Units, 15 Units, subcutaneous, TID W/MEALS insulin NPH (HUMULIN N) injection 25 Units, 25 Units, subcutaneous, BEFORE BREAKFAST insulin NPH (HUMULIN N) injection 62 Units, 62 Units, subcutaneous, HS lactulose (ENULAC) 10 g, 15 mL, oral, Q2H PRN lactulose (ENULAC) 30 g, 45 mL, oral, TID magnesium oxide (MAG-OX) tablet 400 mg, 400 mg, oral, DAILY melatonin tablet 3 mg, 3 mg, oral, HS PRN metoprolol tartrate (LOPRESSOR) tablet 6.25 mg, 6.25 mg, oral, BID midodrine (PROAMITINE) tablet 10 mg, 10 mg, oral, TID multivitamin (THERA VITAMIN) 1 tablet, 1 tablet, oral, DAILY ondansetron (ZOFRAN) tablet 4 mg, 4 mg, oral, Q8H PRN polyethylene glycol (MIRALAX) packet 8.5 g, 8.5 g, oral, DAILY PRN rifAXIMin (XIFAXAN) tablet 550 mg, 550 mg, oral, BID Physical Exam: Last 24 hour min/max Temp: 37.2 C (99 F) Temp Min: 36.8 C (98.2 F) Max: 37.2 C (99 F) Pulse: 64 Pulse Min: 63 Max: 69 Resp: 16 Resp Min: 16 Max: 18 BP: 111/52 BP Min: 100/48 Max: 115/45 SpO2: 100 % SpO2 Min: 99 % Max: 100 % Body mass index is 26.41 kg/m. Intake/Output Summary (Last 24 hours) at 08/10/2019 07 Last data filed at 08/10/2019 0633 Gross per 24 hour Intake 1940 ml Output 2225 ml Net -285 ml General Appearance:Jaundiced, NAD, sitting up in bed. HEENT:Scleral icterus, EOMI, MMM. DHT in nose. Respiratory:CTAB, no wheeze or crackles Cardiovascular: RRR, 2/6 holosystolic murmur loudest at left sternal border Gastrointestinal:soft, non-tender, no rebound, no guarding Musculoskeletal:3+ pitting edema to mid delgadillo, sacral edema Skin:Jaundiced, bronzed complexion. Gynecomastia. Telangectasias. Neurologic:AAOx3 Labs: Chemistries: Last 72 Hours (or 3 results) - Refreshable Recent Labs 08/08/1951708/09/1943808/10/19 0245 08/10/1944808/10/19 0633 NA 129* -- 128* -- -- 130* -- K 4.9 -- 4.8 -- -- 4.6 -- CL 101 -- 101 -- -- 101 -- BICARB 19* -- 20* -- -- 19* -- BUN 66* -- 74* -- -- 71* -- CR 1.41* -- 1.41* -- -- 1.40* -- GLU 242* < > 217* < > 159* 145* 188* CA 9.2 -- 9.0 -- -- 8.9 -- MG 2.4 -- 2.3 -- -- 2.6 -- PO4 2.9 -- 3.3 -- -- 3.1 -- < > = values in this interval not displayed. 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 # Alcoholic Cirrhosisc/b HE, anascarca, TCP # ESLD Encephalopathy has improved substantially, AAOx3, does wax and wane a bit. Delirium remains likely due to ESLD. At top of transplant list. MELD-Na 34 today. -lactulose 30 grams TID with PRN additionalgoal of 3-5 BM daily,rifaximin - Anesthesia consulted for preoperative eval and risk assessment - est ASA class 4 - recommended to consider CRRT intra-op if K is difficult to control on floor or if urine output decreases, as well as K monitoring and Mg replacement intraop. - should anticipate significant arrhythmias intra-op even under ideal circumstances that w ould necessitate rapid cardioversion/defibrillation - Daily CMP and INR - to calculate MELD per transplant request #KAR on CKD KAR likely prerenal. Patient at high risk for HRS, also underlying kidney dysfunction 2/2 n ephropathy, hemochromatosis. Urine Na consistently below 10. Have been intermittently been g iving fluids, albumin (most recently 08/07). - strict I&Os - Midodrine 10 mg TID - continue to monitor Cr, stable at 1.4 today # Nutrition Per hepatology, poor nutrition is barrier to transplant, recommended DHT. - DHT placed 08/01, TFs started 08/02. - TF changed to nocturnal only to promote PO intake during the day. - Nutrition following, appreciate recs. - VitD 73536 U qweekly + multivitamin without iron started 07/31. 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 Of note, A1c wi ll not be accurate due to frequent transfusions for his spur cell anemia. Was on carb control diet but changed to regular to encourage more PO intake. - PM NPH 62 units - AM NPH 25 units - Lispro 15 U TID WM - change mealtime SSI to moderate, 3 am SSI aggressive - need to refer to outpatient diabetes clinic before DC - freestyle glucometer, lancets, test strips, humalog and humalin pens sent to [facility] to deter mine coverage/copay per DM RN request- appreciate assistance with educating patient on this new diagnosis. Continue to encourage patient to administer his own insulin. # Spur cell anemia # Iron overload Goal hemoglobin will be 8 once transplant imminent, otherwise ok to be a little below 7 unl ess he has new symptoms attributed to anemia or active bleeding. No evidence of bleeding. H DS. Hgb 6.9 but will defer transfusion due to margin of error of lab test as well as iron ov erload. No symptoms of anemia. - Continue home [id number] mg TID. - Zinc 50 mg PO daily. - Active type and screen - Transfuse to goal Hgb 8 if transplant imminent, otherwise will hold off on transfusion un less low-mid 6s or new symptoms # Red urine Likely due to iron chelator. -ctm # Non-anion gap metabolic acidosis Urine studies show evidence of RTA. 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 This was performed in the setting of recoveri ng acute kidney injury and most likely represents poor function during recovery. The signi ficance of this is marginal in setting of improving renal function". Recommend no intervent ions at this time. - ctm # Afib vs Aflutter May be related to myocardial iron depositionper cardiology. Should he have more episodes of SVT will consider increasing beta-orion and if unable to manage with that would conside r digoxin loading. Currently no recurrent episodes on BB. Hepatology recommend anesthesiolog y consult for operative evaluation given h/o SVT. Anesthesia discussed with cards possibilit y of stopping amio due to risk of hyperkalemia, however there are no alternative medications and as the patient would be precluded from transplant if he goes into afib with RVR, cards recommends continuing amiodarone. - Rate control: metoprolol tartrate 6.25mg BID - Rhythm control: 10g amio load complete 07/26. Maintenance dose 200 mg PO daily - Electrolytes:K > 4, Mg > 2 - Per cards note 08/03 "During his liver transplant surgery, recommend pacer/defibrillator pads on during if that is practical. Could also consider having RIJ sheath in place that cou ld accommodate temp transvenous pacing wire if patient were to develops persistent complete heart block or hemodynamically significant second degree AV block." #Hyperthyroidism, mild - Unlikely to be driving tachycardia - Outpatient follow up Diet:regular + TFs Sleep: Melatonin PRN Dispo: at top of transplant list, awaiting liver. He sister and mother are planning to take turns coming from [place] to provide care, once he g ets his transplant. They will be here next week (08/12). Surrogate Decision Maker Primary Surrogate Decision Maker Doreen sister [phone] Secondary Surrogate Decision Maker Priyanka Rivera mother CODE:Full This patient was seen and examined by Dr. Hernadez, who agrees with the assessment and plan unless otherwise stated. Eliane Garza MD Internal Medicine [id number] signed by Jackie Hernadez MD at 08/11/2019 6:02 PM PDT Associated attestation - Jackie Hernadez MD - 08/11/2019 6:02 PM PDTGM attending I personally interviewed the patient, performed the tamez elements of the physical examinatio n, and personally formulated the assessment and plan with the resident. See resident Dr. Wally oro's note for details. 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 We will be careful to avoid any medical set ba cks as we anticipate liver transplantationEliane Garza MD - 08/09/2019 7:22 AM PDTFo rmatting of this note might be different from the original. GENERAL MEDICINE PROGRESS NOTE Author: Eliane Garza MD Attending Physician: Jackie Hernadez MD Hospital Day: ID: ESLD, afib, spur cell anemia, secondary hemochromatosis 24h Events: none Subjective: Cheerful, slept well, up and about during the day, continuing to work on being consistent w ith administering insulin. Active Medications: amiodarone (CORDARONE) tablet 200 mg, 200 mg, oral, DAILY cholecalciferol (VITAMIN D3) capsule 50,000 Units, 50,000 Units, oral, Q7D deferiprone tab 2,000 mg, 2,000 mg, oral, TID dextrose 50 % in water IV 25 mL, 25 mL, intravenous, PRN diclofenac (VOLTAREN) 1 % gel 4 g, 4 g, topical, QID PRN glucagon (GLUCAGEN) injection 1 mg, 1 mg, intramuscular, PRN glucose chewable tablet 16 g, 16 g, oral, PRN insulin lispro (HUMALOG) injection 1-16 Units, 1-16 Units, subcutaneous, DAILY insulin lispro (HUMALOG) injection 1-16 Units, 1-16 Units, subcutaneous, QID insulin lispro (HUMALOG) injection 15 Units, 15 Units, subcutaneous, TID W/MEALS insulin NPH (HUMULIN N) injection 25 Units, 25 Units, subcutaneous, BEFORE BREAKFAST insulin NPH (HUMULIN N) injection 62 Units, 62 Units, subcutaneous, HS lactulose (ENULAC) 10 g, 15 mL, oral, Q2H PRN lactulose (ENULAC) 30 g, 45 mL, oral, TID magnesium oxide (MAG-OX) tablet 400 mg, 400 mg, oral, DAILY melatonin tablet 3 mg, 3 mg, oral, HS PRN metoprolol tartrate (LOPRESSOR) tablet 6.25 mg, 6.25 mg, oral, BID midodrine (PROAMITINE) tablet 10 mg, 10 mg, oral, TID multivitamin (THERA VITAMIN) 1 tablet, 1 tablet, oral, DAILY ondansetron (ZOFRAN) tablet 4 mg, 4 mg, oral, Q8H PRN polyethylene glycol (MIRALAX) packet 8.5 g, 8.5 g, oral, DAILY PRN rifAXIMin (XIFAXAN) tablet 550 mg, 550 mg, oral, BID Physical Exam: Last 24 hour min/max Temp: 37 C (98.6 F) Temp Min: 36.6 C (97.9 F) Max: 37 C (98.6 F) Pulse: 67 Pulse Min: 63 Max: 69 Resp: 16 Resp Min: 14 Max: 18 BP: 112/51 BP Min: 103/51 Max: 112/51 SpO2: 100 % SpO2 Min: 100 % Max: 100 % Body mass index is 26.41 kg/m. Intake/Output Summary (Last 24 hours) at 08/09/2019 07 Last data filed at 08/09/2019 0400 Gross per 24 hour Intake 1531 ml Output 1300 ml Net 231 ml General Appearance:Jaundiced, NAD, sitting up in bed. HEENT:Scleral icterus, EOMI, MMM. DHT in nose. Respiratory:CTAB, no wheeze or crackles Cardiovascular: RRR, 2/6 holosystolic murmur loudest at left sternal border Gastrointestinal:soft, non-tender, no rebound, no guarding Musculoskeletal:3+ pitting edema to mid delgadillo, sacral edema Skin:Jaundiced, bronzed complexion. Gynecomastia. Telangectasias. Neurologic:AAOx3 Labs: Chemistries: Last 72 Hours (or 3 results) - Refreshable Recent Labs 08/07/19 0502 08/08/19 0518 08/09/19 0249 08/09/19 0334 08/09/19 0439 NA 130* -- 129* -- -- -- 128* K 4.8 -- 4.9 -- -- -- 4.8 CL 102 -- 101 -- -- -- 101 BICARB 20* -- 19* -- -- -- 20* BUN 63* -- 66* -- -- -- 74* CR 1.42* -- 1.41* -- -- -- 1.41* GLU 239* < > 242* < > 187* 211* 217* CA 8.8 -- 9.2 -- -- -- 9.0 MG 2.3 -- 2.4 -- -- -- 2.3 PO4 2.9 -- 2.9 -- -- -- 3.3 < > = values in this interval not displayed. 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 # Alcoholic Cirrhosisc/b HE, anascarca, TCP # ESLD Encephalopathy has improved substantially, AAOx3, does wax and wane a bit. Delirium remains likely due to ESLD. At top of transplant list. MELD-Na 34 today. -lactulose 30 grams TID with PRN additionalgoal of 3-5 BM daily,rifaximin - Anesthesia consulted for preoperative eval and risk assessment - est ASA class 4 - strongly recommended to stop amio but no alternative per cards (see "afib vs aflutter" b elow) - recommended to consider CRRT intra-op if K is difficult to control on floor or if urine output decreases, as well as K monitoring and Mg replacement intraop. - should anticipate significant arrhythmias intra-op even under ideal circumstances that w ould necessitate rapid cardioversion/defibrillation - Daily CMP and INR - to calculate MELD daily per transplant request #KAR on CKD KAR likely prerenal. Patient at high risk for HRS, also underlying kidney dysfunction 2/2 n ephropathy, hemochromatosis. Urine Na consistently below 10. S/p fluids, albumin (most recen tly 08/07). - strict I&Os - Midodrine 10 mg TID - continue to monitor Cr # Nutrition Per hepatology, poor nutrition is barrier to transplant, recommended DHT. - DHT placed 08/01, TFs started 08/02. - TF changed to nocturnal only to promote PO intake during the day. - Nutrition following, appreciate recs. - VitD 79952 U qweekly + multivitamin without iron started 07/31. 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 Of note, A1c wi ll not be accurate due to frequent transfusions for his spur cell anemia. Was on carb control diet but changed to regular to encourage more PO intake. - PM NPH 62 units - AM NPH 25 units - Lispro 15 U TID WM - change mealtime SSI to moderate, 3 am SSI aggressive - need to refer to outpatient diabetes clinic before DC - freestyle glucometer, lancets, test strips, humalog and humalin pens sent to [facility] to deter mine coverage/copay per DM RN request- appreciate assistance with educating patient on this new diagnosis. Continue to encourage patient to administer his own insulin. # Spur cell anemia # Iron overload Goal hemoglobin will be 8 once transplant imminent, otherwise ok to be a little below 7 unl ess he has new symptoms attributed to anemia or active bleeding. No evidence of bleeding. H DS. Hgb 6.9 but will defer transfusion due to margin of error of lab test as well as iron ov erload. No symptoms of anemia. - Continue home [id number] mg TID. - Zinc 50 mg PO daily. - Active type and screen - Transfuse to goal Hgb 8 if transplant imminent, otherwise will hold off on transfusion un less low-mid 6s or new symptoms # Red urine Likely due to iron chelator. -ctm # Non-anion gap metabolic acidosis Urine studies show evidence of RTA. 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 This was performed in the setting of recoveri ng acute kidney injury and most likely represents poor function during recovery. The signi ficance of this is marginal in setting of improving renal function". Recommend no intervent ions at this time. - ctm # Afib vs Aflutter May be related to myocardial iron depositionper cardiology. Should he have more episodes of SVT will consider increasing beta-orion and if unable to manage with that would conside r digoxin loading. Currently no recurrent episodes on BB. Hepatology recommend anesthesiolog y consult for operative evaluation given h/o SVT. Anesthesia discussed with farnaz possibilit y of stopping amio due to risk of hyperkalemia, however there are no alternative medications and as the patient would be precluded from transplant if he goes into afib with RVR, [place] recommends continuing amiodarone. - Rate control: metoprolol tartrate 6.25mg BID - Rhythm control: 10g amio load complete 07/26. Maintenance dose 200 mg PO daily - Electrolytes:K > 4, Mg > 2 - Per cards note 08/03 "During his liver transplant surgery, recommend pacer/defibrillator pads on during if that is practical. Could also consider having RIJ sheath in place that cou ld accommodate temp transvenous pacing wire if patient were to develops persistent complete heart block or hemodynamically significant second degree AV block." #Hyperthyroidism, mild - Unlikely to be driving tachycardia - Outpatient follow up Diet:regular + TFs Sleep: Melatonin PRN Dispo: at top of transplant list, awaiting liver. He sister and mother are planning to take turns coming from [place] to provide care, once he g ets his transplant. They will be here next week (08/12). Surrogate Decision Maker Primary Surrogate Decision Maker Doreen norwood [phone] Secondary Surrogate Decision Maker Priyanka Rivera mother CODE:Full This patient was seen and examined by Dr. Hernadez, who agrees with the assessment and plan unless otherwise stated. Eliane Garza MD Internal Medicine [id number] signed by Jackie Hernadez MD at 08/11/2019 6:04 PM PDT Associated attestation - Jackie Hernadez MD - 08/11/2019 6:04 PM PDTGM attending I personally interviewed the patient, performed the tamez elements of the physical examinatio n, and personally formulated the assessment and plan with the resident. See resident Dr. Wally oro's note for details. 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 - watch for hypoglycemia in setting of decreased sweets - no HRS precipitating medications We will be careful to avoid any medical set backs as we anticipate liver transplantationCho Henrique beach MD - 08/08/2019 7:55 AM PDTFormatting of this note might be different from th e original. Hepatology Inpatient Consult Follow-Up Note Name: Doug Lawson Etiology of Liver Disease: ETOH Cirrhosis Blood type: A+ Status:Listed MELD-Na score: 34 at 08/08/2019 5:18 AM MELD score: 32 at 08/08/2019 5:18 AM Calculated from: Serum Creatinine: 1.41 mg/dL at 08/08/2019 5:18 AM Serum Sodium: 129 mmol/L at 08/08/2019 5:18 AM Total Bilirubin: 9.9 mg/dL at 08/08/2019 5:18 AM INR(ratio): 3.51 INR at 08/08/2019 5:18 AM Age: 54 years A/P: Mr. Lawson is a 54 yo man with spur cell anemia requiring chronic transfusions c/b iron over load, EtOH cirrhosis c/b ascites.Blood type A+, listed for liver transplant,transferred for AMS and falls found to have hyperglycemia and renal insufficiency, hospital course compl icated by SVT requiring ICU transfer and amiodarone drip. 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 Transplant infectious disease hasalso weighed in,with no e/o infection/sepsis as etiology of SVT/afib. In regard to his tachyarrythmia, his cardiac f unction appears to be compensated and is not a contraindication for transplantper se. Has been titrated off amiodarone GTT and downgraded to medicine floors. Tachyarrythmia has been well controlled with PO amiodarone and metoprolol and perdiscussions withEP attending Dr Cedric Mcintyre, hisSVTs should not preclude pt from transplant and can be managed in the intra/p fransico-operative period. If difficult to control despite amio/metop, theycould also offer abl ative therapies prior to transplant. Patient has several risk factors for post-LT heart failure though, including ETOH as etiolo gy of heart failure, depressed EF 55-60% (low for hyperdynamics of cirrhosis patient), and i tom deposition in myocardium.Acknowledging these risks, consensus was to proceed with OLT. After discussion with transplantanesthesia and cardiology, will continue amiodarone for h istachyarrythmia. While patient awaits for OLT, would continue to optimize his nutrition with enteral feeding and continue physical therapy/occupationatal therapy. Recommendations: -continue DHT feedingfor supplemental nutrition; f/u nutrition recsre: daily calorie co unts -continue PT/OT to improve functional status - continue rifaximin/lactulose for 3-5 BM's daily -would hold off on transfusing now; continue daily CBC and will weigh risks/benefits of tra nsfusion as we monitor patient clinically We will continue to follow along with you. Please page with any questions or concerns. This patient was staffed with , who agrees with above. Henrique Chapa MD Gastroenterology & Hepatology Fellow Pager:[phone] IE/S: Feels well this morning; ate his full meal. Denies confusion or abdominal pain. O: Medications: Medications Scheduled Medication Dose/Rate, Route, Frequency Last Action amiodarone (CORDARONE) tablet 200 mg 200 mg, oral, DAILY Given: 08/07 08 cholecalciferol (VITAMIN D3) capsule 50,000 Units 50,000 Units, oral, Q7D Given: 08/07 133 2 deferiprone tab 2,000 mg 2,000 mg, oral, TID Given: 08/07 2057 insulin lispro (HUMALOG) injection 1-16 Units 10 Units, subQ, DAILY Given: 08/08 313 insulin lispro (HUMALOG) injection 1-16 Units 10 Units, subQ, QID Given: 08/08 752 insulin lispro (HUMALOG) injection 15 Units 15 Units, subQ, TID W/MEALS Given: 08/08 752 insulin NPH (HUMULIN N) injection 25 Units 25 Units, subQ, BEFORE BREAKFAST Given: 08/08 0 753 insulin NPH (HUMULIN N) injection 62 Units 62 Units, subQ, HS Given: 08/07 2155 lactulose (ENULAC) 30 g 30 g, oral, TID Given: 08/07 1609 magnesium oxide (MAG-OX) tablet 400 mg 400 mg, oral, DAILY Given: 08/07 834 metoprolol tartrate (LOPRESSOR) tablet 6.25 mg 6.25 mg, oral, BID Given: 08/07 2128 midodrine (PROAMITINE) tablet 10 mg 10 mg, oral, TID Given: 08/07 2057 multivitamin (THERA VITAMIN) 1 tablet 1 tablet, oral, DAILY Given: 08/07 834 rifAXIMin (XIFAXAN) tablet 550 mg 550 mg, oral, BID Given: 08/07 2057 PRN Medication Dose/Rate, Route, Frequency Last Action dextrose 50 % in water IV 25 mL 25 mL, IV, PRN Ordered diclofenac (VOLTAREN) 1 % gel 4 g 4 g, top, QID PRN Given: 07/23 931 glucagon (GLUCAGEN) injection 1 mg 1 mg, IM, PRN Ordered glucose chewable tablet 16 g 16 g, oral, PRN Ordered lactulose (ENULAC) 10 g 10 g, oral, Q2H PRN Given: 07/28 401 melatonin tablet 3 mg 3 mg, oral, HS PRN Given: 08/05 2151 ondansetron (ZOFRAN) tablet 4 mg 4 mg, oral, Q8H PRN Given: 08/05 245 polyethylene glycol (MIRALAX) packet 8.5 g 8.5 g, oral, DAILY PRN Ordered Vitals: Last 24 hour min/max Temp: 36.9 C (98.4 F) Temp Min: 36.7 C (98.1 F) Max: 37.1 C (98.8 F) Pulse: 66 Pulse Min: 63 Max: 69 Resp: 16 Resp Min: 14 Max: 16 BP: 115/46 BP Min: 98/46 Max: 115/46 SpO2: 99 % SpO2 Min: 98 % Max: 100 % Body mass index is 26.41 kg/m. Exam: Gen:NAD HEENT: DHT in R nares c/d/i CV:RRR+ holosystolic murmur Abd: Soft, NT,tympanic to percussion and moderately distended Neuro: No asterixis Labs: Recent Labs 08/06/1945208/08/1918 WBC 4.12 4.56 HB 6.9* 6.7* HCT 20.3* 20.3* PLT 39* 43* Recent Labs 08/06/1945208/07/19 0502 08/08/19 0258 08/08/19 0518 08/08/19 0745 NA 131* -- 130* -- -- 129* -- K 4.6 -- 4.8 -- -- 4.9 -- CL 103 -- 102 -- -- 101 -- BICARB 19* -- 20* -- -- 19* -- BUN 55* -- 63* -- -- 66* -- CR 1.38* -- 1.42* -- -- 1.41* -- GLU 258* < > 239* < > 258* 242* 274* CA 9.0 -- 8.8 -- -- 9.2 -- AST 125* -- 97* -- -- 98* -- ALT 75* -- 62* -- -- 64* -- AP 192* -- 185* -- -- 204* -- TBILI 10.3* -- 9.9* -- -- 9.9* -- TP 6.4 -- 6.4 -- -- 6.7 -- ALB 3.0* -- 3.0* -- -- 3.3* -- ANIONGAP 9 -- 8 -- -- 9 -- ANIONALBCOR 11 -- 10 -- -- 10 -- < > = values in this interval not displayed. Labs: Lab Results Component Value Date MG 2.4 08/08/2019 Lab Results Component Value Date INRPT 3.51 (H) 08/08/2019 No results found for: FK506 Imaging and Other Studies: 07/17/2019 US with Dopplers IMPRESSION: Cirrhotic liver morphology with findings of portal hypertension. Unremarkable Doppler ultrasound without evidence of venous thrombosis. Cholelithiasis without evidence of cholecystitis. MELD-Na score: 34 at 08/08/2019 5:18 AM MELD score: 32 at 08/08/2019 5:18 AM Calculated from: Serum Creatinine: 1.41 mg/dL at 08/08/2019 5:18 AM Serum Sodium: 129 mmol/L at 08/08/2019 5:18 AM Total Bilirubin: 9.9 mg/dL at 08/08/2019 5:18 AM INR(ratio): 3.51 INR at 08/08/2019 5:18 AM Age: 54 years Associated attestation - Tyson Omalley MD - 08/08/2019 1:47 PM PDTHEPATOLOGY ATTENDING I have personally reviewed the history and physical exam with the GI house detective, and dis cussed the case with the house detective. I confirmed the tamez elements of the history and exam ined patient. I agree with the house detective's documentation with the following additions an d revisions. In good spirits. Will monitor Cr, Hg, nutritional intake, ambulation while awaiting OLT. Tyson Omalley MD, MS, AGNIESZKA outboard motor tester Director of Clinical Hepatology [facility] Division of Gastroenterology/Hepatology [facility] DEPARTMENT: Hepatology - [phone] Place of Service: [id number] - [facility] CSN: [id number] Suggested Modifiers: GC - Resident Involved Eliane Garza MD - 08/08/2019 7:29 AM PDT GENERAL MEDICINE PROGRESS NOTE Author: Eliane Garza MD Attending Physician: Jackie Hernadez MD Hospital Day: ID: ESLD, afib, spur cell anemia, secondary hemochromatosis 24h Events: BG 70 yesterday evening, held dinnertime lispro Subjective: Very concerned by small scrape on left arm this morning that occurred while he was moving h is tray during breakfast, examined and reassured. Encouraged to continue to participate in i nsulin administration and to go for walks. Active Medications: amiodarone (CORDARONE) tablet 200 mg, 200 mg, oral, DAILY cholecalciferol (VITAMIN D3) capsule 50,000 Units, 50,000 Units, oral, Q7D deferiprone tab 2,000 mg, 2,000 mg, oral, TID dextrose 50 % in water IV 25 mL, 25 mL, intravenous, PRN diclofenac (VOLTAREN) 1 % gel 4 g, 4 g, topical, QID PRN glucagon (GLUCAGEN) injection 1 mg, 1 mg, intramuscular, PRN glucose chewable tablet 16 g, 16 g, oral, PRN insulin lispro (HUMALOG) injection 1-16 Units, 1-16 Units, subcutaneous, DAILY insulin lispro (HUMALOG) injection 1-16 Units, 1-16 Units, subcutaneous, QID insulin lispro (HUMALOG) injection 15 Units, 15 Units, subcutaneous, TID W/MEALS insulin NPH (HUMULIN N) injection 25 Units, 25 Units, subcutaneous, BEFORE BREAKFAST insulin NPH (HUMULIN N) injection 62 Units, 62 Units, subcutaneous, HS lactulose (ENULAC) 10 g, 15 mL, oral, Q2H PRN lactulose (ENULAC) 30 g, 45 mL, oral, TID magnesium oxide (MAG-OX) tablet 400 mg, 400 mg, oral, DAILY melatonin tablet 3 mg, 3 mg, oral, HS PRN metoprolol tartrate (LOPRESSOR) tablet 6.25 mg, 6.25 mg, oral, BID midodrine (PROAMITINE) tablet 10 mg, 10 mg, oral, TID multivitamin (THERA VITAMIN) 1 tablet, 1 tablet, oral, DAILY ondansetron (ZOFRAN) tablet 4 mg, 4 mg, oral, Q8H PRN polyethylene glycol (MIRALAX) packet 8.5 g, 8.5 g, oral, DAILY PRN rifAXIMin (XIFAXAN) tablet 550 mg, 550 mg, oral, BID Physical Exam: Last 24 hour min/max Temp: 36.9 C (98.4 F) Temp Min: 36.7 C (98.1 F) Max: 37.1 C (98.8 F) Pulse: 66 Pulse Min: 63 Max: 69 Resp: 16 Resp Min: 14 Max: 18 BP: 115/46 BP Min: 98/46 Max: 115/46 SpO2: 99 % SpO2 Min: 98 % Max: 100 % Body mass index is 26.41 kg/m. Intake/Output Summary (Last 24 hours) at 08/08/2019 0729 Last data filed at 08/08/2019 0500 Gross per 24 hour Intake 1930 ml Output 350 ml Net 1580 ml General Appearance:Jaundiced, NAD, sitting up in bed. HEENT:Scleral icterus, EOMI, MMM. DHT in nose. Respiratory:CTAB, no wheeze or crackles Cardiovascular: RRR, 2/6 holosystolic murmur loudest at left sternal border Gastrointestinal:soft, non-tender, no rebound, no guarding Musculoskeletal:3+ pitting edema to mid delgadillo, sacral edema Skin:Jaundiced, bronzed complexion. Gynecomastia. Telangectasias. Neurologic:AAOx3 Labs: Chemistries: Last 72 Hours (or 3 results) - Refreshable Recent Labs 08/06/1945208/07/19 0502 08/07/19 2140 08/08/19 0258 08/08/19517 NA 131* -- 130* -- -- -- 129* K 4.6 -- 4.8 -- -- -- 4.9 CL 103 -- 102 -- -- -- 101 BICARB 19* -- 20* -- -- -- 19* BUN 55* -- 63* -- -- -- 66* CR 1.38* -- 1.42* -- -- -- 1.41* GLU 258* < > 239* < > 172* 258* 242* CA 9.0 -- 8.8 -- -- -- 9.2 MG 2.3 -- 2.3 -- -- -- 2.4 PO4 2.5 -- 2.9 -- -- -- 2.9 < > = values in this interval not displayed. 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 # Alcoholic Cirrhosisc/b HE, anascarca, TCP # ESLD Encephalopathy has improved substantially, AAOx3, does wax and wane a bit. Delirium remains likely due to ESLD. At top of transplant list. MELD-Na 34 today. -lactulose 30 grams TID with PRN additionalgoal of 3-5 BM daily,rifaximin - Anesthesia consulted for preoperative eval and risk assessment - est ASA class 4 - strongly recommended to stop amio but no alternative per cards (see "afib vs aflutter" b elow) - recommended to consider CRRT intra-op if K is difficult to control on floor or if urine output decreases, as well as K monitoring and Mg replacement intraop. - should anticipate significant arrhythmias intra-op even under ideal circumstances that w ould necessitate rapid cardioversion/defibrillation - Daily CMP and INR - to calculate MELD daily per transplant request #KAR on CKD KAR likely prerenal. Patient at high risk for HRS, also underlying kidney dysfunction 2/2 n ephropathy, hemochromatosis. Urine Na consistently below 10. S/p fluids, albumin (most recen tly 08/07). - strict I&Os - Midodrine 10 mg TID - continue to monitor Cr # Nutrition Per hepatology, poor nutrition is barrier to transplant, recommended DHT. - DHT placed 08/01, TFs started 08/02. - TF changed to nocturnal only to promote PO intake during the day. - Nutrition following, appreciate recs. - VitD 20549 U qweekly + multivitamin without iron started 07/31. 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 Of note, A1c wi ll not be accurate due to frequent transfusions for his spur cell anemia. Was on carb control diet but changed to regular to encourage more PO intake. - PM NPH to 62 units - AM NPH 25 units - Lispro 15 U TID WM - change mealtime SSI to moderate, 3 am SSI aggressive - need to refer to outpatient diabetes clinic before DC - freestyle glucometer, lancets, test strips, humalog and humalin pens sent to [facility] to deter mine coverage/copay per DM RN request- appreciate assistance with educating patient on this new diagnosis. Continue to encourage patient to administer his own insulin. # Spur cell anemia # Iron overload Goal hemoglobin will be 8 once transplant imminent, otherwise ok to be a little below 7 unl ess he has new symptoms attributed to anemia or active bleeding. No evidence of bleeding. H DS. Hgb 6.7 08/08 but will defer transfusion due to margin of error of lab test as well as i tom overload. No symptoms of anemia. - Continue home [id number] mg TID. - Zinc 50 mg PO daily. - Active type and screen - Transfuse to goal Hgb 8 if transplant imminent, otherwise will hold off on transfusion un less low-mid 6s or new symptoms # Red urine Likely due to iron chelator. -ctm # Non-anion gap metabolic acidosis Urine studies show evidence of RTA. 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 This was performed in the setting of recoveri ng acute kidney injury and most likely represents poor function during recovery. The signi ficance of this is marginal in setting of improving renal function". Recommend no intervent ions at this time. - ctm # Afib vs Aflutter May be related to myocardial iron depositionper cardiology. Should he have more episodes of SVT will consider increasing beta-orion and if unable to manage with that would conside r digoxin loading. Currently no recurrent episodes on BB. Hepatology recommend anesthesiolog y consult for operative evaluation given h/o SVT. Anesthesia discussed with cards possibilit y of stopping amio due to risk of hyperkalemia, however there are no alternative medications and as the patient would be precluded from transplant if he goes into afib with RVR, cards recommends continuing amiodarone. - Rate control: metoprolol tartrate 6.25mg BID - Rhythm control: 10g amio load complete 07/26. Maintenance dose 200 mg PO daily - Electrolytes:K > 4, Mg > 2 - Per cards note 08/03 "During his liver transplant surgery, recommend pacer/defibrillator pads on during if that is practical. Could also consider having RIJ sheath in place that cou ld accommodate temp transvenous pacing wire if patient were to develops persistent complete heart block or hemodynamically significant second degree AV block." #Hyperthyroidism, mild - Unlikely to be driving tachycardia - Outpatient follow up Diet:regular + TFs Sleep: Melatonin PRN Dispo: at top of transplant list, awaiting liver. He sister and mother are planning to take turns coming from [place] to provide care, once he g ets his transplant. They will be here next week (08/12). Surrogate Decision Maker Primary Surrogate Decision Maker Doreen sister [phone] Secondary Surrogate Decision Maker Priyanka Rivera mother CODE:Full This patient was seen and examined by Dr. Hernadez, who agrees with the assessment and plan unless otherwise stated. Eliane Garza MD Internal Medicine [id number] signed by Jackie Hernadez MD at 08/09/2019 7:52 AM PDT Associated attestation - Jackie Hernadez MD - 08/09/2019 7:52 AM PDT GM attending I personally interviewed the patient, performed the tamez elements of the physical examinatio n, and personally formulated the assessment and plan with the resident. See resident Dr. Wally oro's note for details. Last Vitals: BP 112/51 (BP Location: Left upper arm, Patient Position: Lying on back) | Pu lse 67 | Temp 37 C (98.6 F) (Oral) | Resp 16 | Ht 1.803 m (5' 11") | Wt 85.9 kg (189 lb 6 oz) | SpO2 100% | BMI 26.41 kg/m | BSA 2.07 m 24 Hour Vital Min/Max: Systolic (24hrs), Av , Min:103 , Max:112 Diastolic (24hrs), Av, Min:51, Max:54 Pulse Min: 63 Max: 69 Temp Min: 36.6 C (97.9 F) Max: 37 C (98.6 F) Resp Min: 14 Max: 18 SpO2 Min: 100 % Max: 100 % Intake/Output Summary (Last 24 hours) at 08/09/2019 0750 Last data filed at 08/09/2019 0400 Gross per 24 hour Intake 1531 ml Output 1300 ml Net 231 ml PE as detailed CBC with diff last 72 hours (or 3 results) Recent Labs 08/08/1951708/09/19438 WBC 4.56 4.27 HB 6.7* 6.9* HCT 20.3* 21.2* PLT 43* 52* Chemistries: Last 72 Hours (or 3 results): Recent Labs 08/07/19 0502 08/08/19 0518 08/09/19 0249 08/09/19 0334 08/09/19 0439 NA 130* -- 129* -- -- -- 128* K 4.8 -- 4.9 -- -- -- 4.8 CL 102 -- 101 -- -- -- 101 BICARB 20* -- 19* -- -- -- 20* BUN 63* -- 66* -- -- -- 74* EGFRAFRICAN >60 -- >60 -- -- -- >60 CR 1.42* -- 1.41* -- -- -- 1.41* GLU 239* < > 242* < > 187* 211* 217* CA 8.8 -- 9.2 -- -- -- 9.0 MG 2.3 -- 2.4 -- -- -- 2.3 PO4 2.9 -- 2.9 -- -- -- 3.3 < > = values in this interval not displayed. 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 - rest per excellent team note.Amaris Medina LCSW - 08/07/2019 2:15 PM PDTLiver Cox splant Social Work Note: LEARNING ENGINEER met with pt at bedside to check-in and offer support. He is currently listed for a niels er transplant. Pt reports to be doing well overall. He states he is slowly adjusting to argenis ging diabetes and learning what he can eat. He was told today he is on the top of list, and remains hopeful a liver offer will come soon. Pt spent some time thinking about what he will do once he is feeling better. His mother and sister moved him out of his house a few weeks ago, so he would like to spend sometime traveling before settling down. He understands he wi ll have some limitations with managing his liver post-transplant and needing to seek medical care. His mother and sister are planning to come for a visit next week on the . Pt denied any needs or concerns at this time. LEARNING ENGINEER will continue to follow and check-in wit h pt. Please page should any psychosocial needs arise. WINIFRED Mckenzie, LEARNING ENGINEER Clinical Transplant [facility] [place] Pager: [phone] signed by Amaris Medina LCSW at 08/07/2019 2:20 PM Eliane Harding MD - 08/07/2019 7:02 AM PDT GENERAL MEDICINE PROGRESS NOTE Author: Eliane Garza MD Attending Physician: Jackie Hernadez MD Hospital Day: ID: ESLD, afib, spur cell anemia, secondary hemochromatosis 24h Events: none Subjective: Very happy to hear he is at the top of the transplant list, this motivates him to engage in his care more. Has been intermittently administering his insulin, walking around the unit. Encouraged him to continue to participate in his care. Active Medications: amiodarone (CORDARONE) tablet 200 mg, 200 mg, oral, DAILY cholecalciferol (VITAMIN D3) capsule 50,000 Units, 50,000 Units, oral, Q7D deferiprone tab 2,000 mg, 2,000 mg, oral, TID dextrose 50 % in water IV 25 mL, 25 mL, intravenous, PRN diclofenac (VOLTAREN) 1 % gel 4 g, 4 g, topical, QID PRN glucagon (GLUCAGEN) injection 1 mg, 1 mg, intramuscular, PRN glucose chewable tablet 16 g, 16 g, oral, PRN insulin lispro (HUMALOG) injection 1-16 Units, 1-16 Units, subcutaneous, DAILY insulin lispro (HUMALOG) injection 1-16 Units, 1-16 Units, subcutaneous, QID insulin lispro (HUMALOG) injection 15 Units, 15 Units, subcutaneous, TID W/MEALS insulin NPH (HUMULIN N) injection 25 Units, 25 Units, subcutaneous, BEFORE BREAKFAST insulin NPH (HUMULIN N) injection 58 Units, 58 Units, subcutaneous, HS lactulose (ENULAC) 10 g, 15 mL, oral, Q2H PRN lactulose (ENULAC) 30 g, 45 mL, oral, TID magnesium oxide (MAG-OX) tablet 400 mg, 400 mg, oral, DAILY melatonin tablet 3 mg, 3 mg, oral, HS PRN metoprolol tartrate (LOPRESSOR) tablet 6.25 mg, 6.25 mg, oral, BID midodrine (PROAMITINE) tablet 10 mg, 10 mg, oral, TID multivitamin (THERA VITAMIN) 1 tablet, 1 tablet, oral, DAILY ondansetron (ZOFRAN) tablet 4 mg, 4 mg, oral, Q8H PRN polyethylene glycol (MIRALAX) packet 8.5 g, 8.5 g, oral, DAILY PRN rifAXIMin (XIFAXAN) tablet 550 mg, 550 mg, oral, BID zinc sulfate (ORAZINC, ZINC-220) capsule 50 mg elemental, 220 mg total salt, oral, DAILY Physical Exam: Last 24 hour min/max Temp: 36.8 C (98.2 F) Temp Min: 36.3 C (97.3 F) Max: 36.8 C (98.2 F) Pulse: 66 Pulse Min: 60 Max: 67 Resp: 16 Resp Min: 16 Max: 16 BP: 103/48 BP Min: 97/48 Max: 153/71 SpO2: 99 % SpO2 Min: 97 % Max: 100 % Body mass index is 25.1 kg/m. Intake/Output Summary (Last 24 hours) at 08/07/2019 0702 Last data filed at 08/07/2019 0500 Gross per 24 hour Intake 2062 ml Output Net 2062 ml General Appearance:Jaundiced, NAD, sitting up in bed. HEENT:Scleral icterus, EOMI, MMM. DHT in nose. Respiratory:CTAB, no wheeze or crackles Cardiovascular: RRR, 2/6 holosystolic murmur loudest at left sternal border Gastrointestinal:soft, non-tender, no rebound, no guarding Musculoskeletal:3+ pitting edema to mid [place], sacral edema Skin:Jaundiced, bronzed complexion. Gynecomastia. Telangectasias. Neurologic:AAOx3 Labs: Chemistries: Last 72 Hours (or 3 results) - Refreshable Recent Labs 08/05/19 0516 08/06/19 0453 08/06/19 2143 08/07/19 0312 08/07/19 0502 NA 131* -- 131* -- -- -- 130* K 4.4 -- 4.6 -- -- -- 4.8 CL 103 -- 103 -- -- -- 102 BICARB 20* -- 19* -- -- -- 20* BUN 51* -- 55* -- -- -- 63* CR 1.16 -- 1.38* -- -- -- 1.42* GLU 282* < > 258* < > 124* 264* 239* CA 9.3 -- 9.0 -- -- -- 8.8 MG 2.1 -- 2.3 -- -- -- 2.3 PO4 2.6 -- 2.5 -- -- -- 2.9 < > = values in this interval not displayed. 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 # Alcoholic Cirrhosisc/b HE, anascarca, TCP # ESLD Encephalopathy has improved substantially, AAOx3, does wax and wane a bit. Delirium remains likely due to ESLD. At top of transplant list. MELD-Na 34 today. -lactulose 30 grams TID with PRN additionalgoal of 3-5 BM daily,rifaximin - Anesthesia consulted for preoperative eval and risk assessment - est ASA class 4 - strongly recommended to stop amio but no alternative per cards (see "afib vs aflutter" b elow) - recommended to consider CRRT intra-op if K is difficult to control on floor or if urine output decreases, as well as K monitoring and Mg replacement intraop. - should anticipate significant arrhythmias intra-op even under ideal circumstances that w ould necessitate rapid cardioversion/defibrillation - Daily CMP and INR - to calculate MELD daily per transplant request #KAR on CKD KAR likely prerenal. Patient at high risk for HRS, also underlying kidney dysfunction 2/2 n ephropathy, hemochromatosis. Cr initially improved with albumin and LR. [place] again over past few days, bolused LR yester day, slight increase again today so will give albumin. - Midodrine 10 mg TID - Albumin 25 g today - continue to monitor Cr # Nutrition Per hepatology, poor nutrition is barrier to transplant, recommending DHT. - DHT placed 08/01, TFs started 08/02. - TF changed to nocturnal only to promote PO intake during the day. - Nutrition following, appreciate recs. - VitD 17064 U qweekly + multivitamin without iron started 07/31. 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 Of note, A1c wi ll not be accurate due to frequent transfusions for his spur cell anemia. Was on carb control diet but changed to regular to encourage more PO intake. - Increase PM NPH to 62 units - AM NPH 25 units - Lispro to 15 U TID WM - SSI aggressive - need to refer to outpatient diabetes clinic before DC - freestyle glucometer, lancets, test strips, humalog and humalin pens sent to [facility] to deter mine coverage/copay per DM RN request- appreciate assistance with educating patient on this new diagnosis. Continue to encourage patient to administer his own insulin. # Spur cell anemia # Iron overload Goal hemoglobin will be 8 once transplant imminent, otherwise ok to be a little below 7 unl ess he has new symptoms attributed to anemia or active bleeding. No evidence of bleeding. H DS. Hgb 6.9 08/06 but will defer transfusion due to margin of error of lab test as well as i tom overload. No symptoms of anemia. - Continue home [id number] mg TID. - Zinc 50 mg PO daily. - Active type and screen - Transfuse PRN - CBC q48h # Red urine Likely due to iron chelator. -ctm # Non-anion gap metabolic acidosis Urine studies show evidence of RTA. 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 This was performed in the setting of recoveri ng acute kidney injury and most likely represents poor function during recovery. The signi ficance of this is marginal in setting of improving renal function". Recommend no intervent ions at this time. - ctm # Afib vs Aflutter May be related to myocardial iron depositionper cardiology. Should he have more episodes of SVT will consider increasing beta-orion and if unable to manage with that would conside r digoxin loading. Currently no recurrent episodes on BB. Hepatology recommend anesthesiolog y consult for operative evaluation given h/o SVT. Anesthesia discussed with cards possibilit y of stopping amio due to risk of hyperkalemia, however there are no alternative medications and as the patient would be precluded from transplant if he goes into afib with RVR, cards recommends continuing amiodarone. - Rate control: metoprolol tartrate 6.25mg BID - Rhythm control: 10g amio load complete 07/26. Maintenance dose 200 mg PO daily - Electrolytes:K > 4, Mg > 2 - Per cards note 08/03 "During his liver transplant surgery, recommend pacer/defibrillator pads on during if that is practical. Could also consider having RIJ sheath in place that cou ld accommodate temp transvenous pacing wire if patient were to develops persistent complete heart block or hemodynamically significant second degree AV block." #Hyperthyroidism, mild - Unlikely to be driving tachycardia - Outpatient follow up Diet:regular + TFs Sleep: Melatonin PRN Dispo: at top of transplant list, awaiting liver. He sister and mother are planning to take turns coming from [place] to provide care, once he g ets his transplant. They will be here next week (08/12). Surrogate Decision Maker Primary Surrogate Decision Maker Doreen sister [phone] Secondary Surrogate Decision Maker Priyanka Rivera mother CODE:Full This patient was seen and examined by Dr. Hernadez, who agrees with the assessment and plan unless otherwise stated. Eliane Garza MD Internal Medicine [id number] signed by Jackie Hernadez MD at 08/08/2019 9:40 AM PDT Associated attestation - Jackie Hernadez MD - 08/08/2019 9:40 AM PDTGM attending I personally interviewed the patient, performed the tamez elements of the physical examinatio n, and personally formulated the assessment and plan with the resident. See resident Dr. Wally oro's note for details. 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 Hepatology Inpatient Consult Follow-Up Note Name: Doug Lawson Etiology of Liver Disease: ETOH Cirrhosis Blood type: A+ Status:Listed MELD-Na score: 34 at 08/07/2019 5:02 AM MELD score: 32 at 08/07/2019 5:02 AM Calculated from: Serum Creatinine: 1.42 mg/dL at 08/07/2019 5:02 AM Serum Sodium: 130 mmol/L at 08/07/2019 5:02 AM Total Bilirubin: 9.9 mg/dL at 08/07/2019 5:02 AM INR(ratio): 3.50 INR at 08/07/2019 5:02 AM Age: 54 years A/P: Mr. Lawson is a 54 yo man with spur cell anemia requiring chronic transfusions c/b iron over load, EtOH cirrhosis c/b ascites. Blood type A+, listed for liver transplant,transferred f or [facility] and falls found to have hyperglycemia and renal insufficiency, hospital course compli cated by SVT requiring ICU transfer and amiodarone drip. Work-up thus far has been unremarka ble, including a knee aspirate demonstrating findings most consistent with hemarthrosis. He'sdemonstrated noovert GI bleeding;so endoscopic work-up for this is unmerited in e setting of known spur cell anemia. Transplant infectious disease hasalso weighed in, with no e/o infection/sepsis as etiology of SVT/afib. In regard to his tachyarrythmia, his c ardiac function appears to be compensated and is not a contraindication for transplantper se. Has been titrated off amiodarone GTT and downgraded to medicine floors. Tachyarrythmia currently controlled with PO amiodarone and metoprolol and [facility], hisSVTs should not preclude pt from transplant and can be managed in the in tra/clara-operative period. If difficult to control despite amio/metop, theycould also offe r ablative therapies prior to transplant. Patient has several risk factors for post-LT heart failure though, including ETOH as etiolo gy of heart failure, depressed EF 55-60% (low for hyperdynamics of cirrhosis patient), and i tom deposition in myocardium.Acknowledging these risks, consensus was to proceed with OLT. After discussion with transplantanesthesia and cardiology, will continue amiodarone for h istachyarrythmia. While patient awaits for OLT, would continue to optimize his nutrition with enteral feeding and continue physical therapy/occupationatal therapy. Recommendations: -continue DHT feedingfor supplemental nutrition; f/u nutrition recsre: daily calorie co unts -continue PT/OT to improve functional status - continue rifaximin/lactulose for 3-5 BM's daily We will continue to follow along with you. Please page with any questions or concerns. This patient was staffed with , who agrees with above. Henrique Chapa MD Gastroenterology & Hepatology Fellow Pager:[phone] IE/S: Eating breakfast this morning (consumed full meal). Denies confusion or pain. O: Medications: Medications Scheduled Medication Dose/Rate, Route, Frequency Last Action amiodarone (CORDARONE) tablet 200 mg 200 mg, oral, DAILY Given: 08/06 08 cholecalciferol (VITAMIN D3) capsule 50,000 Units 50,000 Units, oral, Q7D Given: 07/31 171 2 deferiprone tab 2,000 mg 2,000 mg, oral, TID Given: 08/06 2132 insulin lispro (HUMALOG) injection 1-16 Units 10 Units, subQ, DAILY Given: 08/07 332 insulin lispro (HUMALOG) injection 1-16 Units 4 Units, subQ, QID Given: 08/06 131 insulin lispro (HUMALOG) injection 15 Units 15 Units, subQ, TID W/MEALS Given: 08/06 1829 insulin NPH (HUMULIN N) injection 25 Units 25 Units, subQ, BEFORE BREAKFAST Given: 08/06 0 803 insulin NPH (HUMULIN N) injection 58 Units 58 Units, subQ, HS Given: 08/06 2232 lactulose (ENULAC) 30 g 30 g, oral, TID Given: 08/06 2133 magnesium oxide (MAG-OX) tablet 400 mg 400 mg, oral, DAILY Given: 08/06 802 metoprolol tartrate (LOPRESSOR) tablet 6.25 mg 6.25 mg, oral, BID Given: 08/06 2138 midodrine (PROAMITINE) tablet 10 mg 10 mg, oral, TID Given: 08/06 2133 multivitamin (THERA VITAMIN) 1 tablet 1 tablet, oral, DAILY Given: 08/06 802 rifAXIMin (XIFAXAN) tablet 550 mg 550 mg, oral, BID Given: 08/06 2128 zinc sulfate (ORAZINC, ZINC-220) capsule 50 mg elemental 50 mg elemental, oral, DAILY Give n: 08/06 802 PRN Medication Dose/Rate, Route, Frequency Last Action dextrose 50 % in water IV 25 mL 25 mL, IV, PRN Ordered diclofenac (VOLTAREN) 1 % gel 4 g 4 g, top, QID PRN Given: 07/23 931 glucagon (GLUCAGEN) injection 1 mg 1 mg, IM, PRN Ordered glucose chewable tablet 16 g 16 g, oral, PRN Ordered lactulose (ENULAC) 10 g 10 g, oral, Q2H PRN Given: 07/28 401 melatonin tablet 3 mg 3 mg, oral, HS PRN Given: 08/05 2151 ondansetron (ZOFRAN) tablet 4 mg 4 mg, oral, Q8H PRN Given: 08/05 245 polyethylene glycol (MIRALAX) packet 8.5 g 8.5 g, oral, DAILY PRN Ordered Vitals: Last 24 hour min/max Temp: 36.8 C (98.2 F) Temp Min: 36.3 C (97.3 F) Max: 36.8 C (98.2 F) Pulse: 66 Pulse Min: 60 Max: 67 Resp: 16 Resp Min: 16 Max: 16 BP: 103/48 BP Min: 97/48 Max: 153/71 SpO2: 99 % SpO2 Min: 97 % Max: 100 % Body mass index is 25.1 kg/m. Exam: Gen:NAD HEENT: DHT in R nares c/d/i CV:RRR+ holosystolic murmur Abd: Soft, NT,tympanic to percussion and moderately distended Neuro: No asterixis Labs: Recent Labs 08/06/19452 WBC 4.12 HB 6.9* HCT 20.3* PLT 39* Recent Labs 08/05/19 0516 08/06/19 0453 08/06/19 2143 08/07/19 0312 08/07/19 0502 NA 131* -- 131* -- -- -- 130* K 4.4 -- 4.6 -- -- -- 4.8 CL 103 -- 103 -- -- -- 102 BICARB 20* -- 19* -- -- -- 20* BUN 51* -- 55* -- -- -- 63* CR 1.16 -- 1.38* -- -- -- 1.42* GLU 282* < > 258* < > 124* 264* 239* CA 9.3 -- 9.0 -- -- -- 8.8 AST 110* -- 125* -- -- -- 97* ALT 62* -- 75* -- -- -- 62* AP 211* -- 192* -- -- -- 185* TBILI 11.7* -- 10.3* -- -- -- 9.9* TP 6.8 -- 6.4 -- -- -- 6.4 ALB 3.4* -- 3.0* -- -- -- 3.0* ANIONGAP 8 -- 9 -- -- -- 8 ANIONALBCOR 9 -- 11 -- -- -- 10 < > = values in this interval not displayed. Labs: Lab Results Component Value Date MG 2.3 08/07/2019 Lab Results Component Value Date INRPT 3.50 (H) 08/07/2019 No results found for: FK506 Imaging and Other Studies: 07/17/2019 US with Dopplers IMPRESSION: Cirrhotic liver morphology with findings of portal hypertension. Unremarkable Doppler ultrasound without evidence of venous thrombosis. Cholelithiasis without evidence of cholecystitis. MELD-Na score: 34 at 08/07/2019 5:02 AM MELD score: 32 at 08/07/2019 5:02 AM Calculated from: Serum Creatinine: 1.42 mg/dL at 08/07/2019 5:02 AM Serum Sodium: 130 mmol/L at 08/07/2019 5:02 AM Total Bilirubin: 9.9 mg/dL at 08/07/2019 5:02 AM INR(ratio): 3.50 INR at 08/07/2019 5:02 AM Age: 54 years Associated attestation - Tyson Omalley MD - 08/07/2019 12:38 PM PDTHEPATOLOGY ATTENDING I have personally reviewed the history and physical exam with the GI house detective, and dis cussed the case with the house detective. I confirmed the tamez elements of the history and exam ined patient. I agree with the house detective's documentation with the following additions an d revisions. Tyson Omalley MD, MS, AGNIESZKA outboard motor tester Director of Clinical Hepatology [facility] Division of Gastroenterology/Hepatology [facility] DEPARTMENT: Hepatology - [phone] Place of Service: [facility] CSN: [id number] Suggested Modifiers: GC - Resident Involved Zahida Grimaldo MD - 08/06/2019 8:20 AM PDT GENERAL MEDICINE PROGRESS NOTE Author: Eliane Garza MD Attending Physician: Rex So MD Hospital Day: ID: ESLD, afib, spur cell anemia, iron overload 24h Events: None Subjective: No further abdominal pain, gas, nausea. Tolerating tube feeds well. Has been out of bed a l ot and proud of his strength, walking around more. Active Medications: amiodarone (CORDARONE) tablet 200 mg, 200 mg, oral, DAILY cholecalciferol (VITAMIN D3) capsule 50,000 Units, 50,000 Units, oral, Q7D deferiprone tab 2,000 mg, 2,000 mg, oral, TID dextrose 50 % in water IV 25 mL, 25 mL, intravenous, PRN diclofenac (VOLTAREN) 1 % gel 4 g, 4 g, topical, QID PRN glucagon (GLUCAGEN) injection 1 mg, 1 mg, intramuscular, PRN glucose chewable tablet 16 g, 16 g, oral, PRN insulin lispro (HUMALOG) injection 1-16 Units, 1-16 Units, subcutaneous, DAILY insulin lispro (HUMALOG) injection 1-16 Units, 1-16 Units, subcutaneous, QID insulin lispro (HUMALOG) injection 15 Units, 15 Units, subcutaneous, TID W/MEALS insulin NPH (HUMULIN N) injection 25 Units, 25 Units, subcutaneous, BEFORE BREAKFAST insulin NPH (HUMULIN N) injection 58 Units, 58 Units, subcutaneous, HS lactulose (ENULAC) 10 g, 15 mL, oral, Q2H PRN lactulose (ENULAC) 30 g, 45 mL, oral, TID magnesium oxide (MAG-OX) tablet 400 mg, 400 mg, oral, DAILY melatonin tablet 3 mg, 3 mg, oral, HS PRN metoprolol tartrate (LOPRESSOR) tablet 6.25 mg, 6.25 mg, oral, BID midodrine (PROAMITINE) tablet 10 mg, 10 mg, oral, TID multivitamin (THERA VITAMIN) 1 tablet, 1 tablet, oral, DAILY ondansetron (ZOFRAN) tablet 4 mg, 4 mg, oral, Q8H PRN polyethylene glycol (MIRALAX) packet 8.5 g, 8.5 g, oral, DAILY PRN rifAXIMin (XIFAXAN) tablet 550 mg, 550 mg, oral, BID zinc sulfate (ORAZINC, ZINC-220) capsule 50 mg elemental, 220 mg total salt, oral, DAILY Physical Exam: Last 24 hour min/max Temp: 36.3 C (97.3 F) Temp Min: 36.3 C (97.3 F) Max: 37.1 C (98.8 F) Pulse: 60 Pulse Min: 60 Max: 71 Resp: 16 Resp Min: 14 Max: 18 BP: 97/48 BP Min: 97/48 Max: 106/54 SpO2: 100 % SpO2 Min: 97 % Max: 100 % Body mass index is 25.1 kg/m. Intake/Output Summary (Last 24 hours) at 08/06/2019 1734 Last data filed at 08/06/2019 1315 Gross per 24 hour Intake 2709 ml Output Net 2709 ml General Appearance:Jaundiced, NAD, sitting up in bed HEENT:Scleral icterus, EOMI, MMM. DHT in nose. Respiratory:CTAB, no wheeze or crackles Cardiovascular: RRR, 2/6 holosystolic murmur loudest at left sternal border Gastrointestinal:soft, non-tender, no rebound, no guarding Musculoskeletal:1+ pitting edema to mid [place] Skin:Jaundiced, bronzed complexion Neurologic:AAOx3 Labs: Chemistries: Last 72 Hours (or 3 results) - Refreshable Recent Labs 08/04/1961008/05/19 0516 08/06/19 0310 08/06/19 0453 08/06/19 1304 NA 129* -- 131* -- -- 131* -- K 4.7 -- 4.4 -- -- 4.6 -- CL 103 -- 103 -- -- 103 -- BICARB 20* -- 20* -- -- 19* -- BUN 54* -- 51* -- -- 55* -- CR 1.31* -- 1.16 -- -- 1.38* -- GLU 376* < > 282* < > 292* 258* 199* CA 8.7 -- 9.3 -- -- 9.0 -- MG 2.1 -- 2.1 -- -- 2.3 -- PO4 2.7 -- 2.6 -- -- 2.5 -- < > = values in this interval not displayed. Lab Results Component Value Date AST 125 08/06/2019 ALT 75 08/06/2019 TBILI 10.3 08/06/2019 DIRBILI 4.2 07/07/2019 AP 192 08/06/2019 TP 6.4 08/06/2019 ALB 3.0 08/06/2019 CBC with diff last 72 hours (or 3 results) - Refreshable Recent Labs 08/04/1961008/06/19452 WBC 4.53 4.12 HB 7.3* 6.9* HCT 21.8* 20.3* PLT 36* 39* Micro: blood cx 07/26: no growth at 5 days Imaging: no interval imaging Assessment and Plan: Mr.Jeppeis leyva 54 y/owith ESLD 2/ EtOH c/b hepatic encephalopathy, ascites, spur cell anemia requiring chronic transfusions and resulting in iron overload, who presented with HRS and developed SVT resulting in admission to the MICU where he was loaded with amiodarone an d then was transferred to the floor on 07/22 where he is being optimized nutritionally and me dically before liver transplant. # Alcoholic Cirrhosisc/b HE, ascites, TCP # ESLD Encephalopathy has improved, AAOx3, does wax and wane a bit. Delirium remains likely due to ESLD. Continue lactulose. -lactulose 30 grams TID with PRN additionalgoal of 3-5 BM daily,rifaximin - Anesthesia consulted for preoperative eval and risk assessment - est ASA class 4 - strongly recommended to stop amio but no alternative per cards (see "afib vs aflutter" b elow) - recommended to consider CRRT intra-op if K is difficult to control on floor or if urine output decreases, as well as K monitoring and Mg replacement intraop. - should anticipate significant arrhythmias intra-op even under ideal circumstances that w ould necessitate rapid cardioversion/defibrillation - Daily CMP and INR - to calculate MELD daily per transplant request #KAR with concern for HRS Cr uptrending over past few days. Improvement with albumin and LR. Cr up again today so melissa l bolus LR. - Midodrine 10 mg TID -Discontinuedoctreotide per hepatology recs - continue to monitor Cr # Nutrition Per hepatology, poor nutrition is barrier to transplant, recommending DHT. - DHT placed 08/01, TFs started 08/02. - TF changed to nocturnal only to promote PO intake during the day. - Nutrition following, appreciate recs. - reordered calorie count - VitD 64736 U qweekly + multivitamin without iron started 07/31. 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 Of note, A1c wi ll not be accurate due to frequent transfusions for his spur cell anemia. Was on carb control diet but changed to regular to encourage more PO intake. - Increase PM NPH to 58 units - AM NPH 25 units - increase Lispro to 15 U TID WM - SSI --> aggressive - need to refer to outpatient diabetes clinic before DC - freestyle glucometer, lancets, test strips, humalog and humalin pens sent to [facility] to deter mine coverage/copay per DM RN request- appreciate assistance with educating patient on this new diagnosis # Spur cell anemia # Iron overload Goal hemoglobin of ~7. No evidence of bleeding. HDS. Hgb 6.9 today but will defer transfus ion due to margin of error of lab test as well as iron overload. No symptoms of anemia. - Continue home [id number] mg TID. - Zinc 50 mg PO daily. - Active type and screen - Transfuse PRN - CBC q48h # Red urine Likely due to iron chelator. -ctm # Non-anion gap metabolic acidosis Urine studies show evidence of RTA. 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 This was performed in the setting of recoveri ng acute kidney injury and most likely represents poor function during recovery. The signi ficance of this is marginal in setting of improving renal function". Recommend no intervent ions at this time. - ctm # Afib vs Aflutter May be related to myocardial iron depositionper cardiology. Should he have more episodes of SVT will consider increasing beta-orion and if unable to manage with that would conside r digoxin loading. Currently no recurrent episodes on BB. Hepatology recommend anesthesiolog y consult for operative evaluation given h/o SVT. Anesthesia discussed with cards possibilit y of stopping amio due to risk of hyperkalemia, however there are no alternative medications and as the patient would be precluded from transplant if he goes into afib with RVR, [place] recommends continuing amiodarone. - Rate control: metoprolol tartrate 6.25mg BID - Rhythm control: 10g amio load complete 07/26. Maintenance dose 200 mg PO daily - Electrolytes:K > 4, Mg > 2 - Per cards note 08/03 "During his liver transplant surgery, recommend pacer/defibrillator pads on during if that is practical. Could also consider having RIJ sheath in place that cou ld accommodate temp transvenous pacing wire if patient were to develops persistent complete heart block or hemodynamically significant second degree AV block." #Hyperthyroidism, mild - Unlikely to be driving tachycardia - Outpatient follow up Diet:regular + TFs Sleep: Melatonin PRN Dispo: Will have better idea by end of the week where he stands on transplant list. He sister and mother are planning to take turns coming from [place] to provide care, once he g ets his transplant. They will be here next week (08/12). Surrogate Decision Maker Primary Surrogate Decision Maker Doreen sister [phone] Secondary Surrogate Decision Maker Priyanka Rivera mother CODE:Full This patient was seen and examined by Dr. So, who agrees with the assessment and plan. Zahida Grimaldo MD PGY-3, Internal Medicine [id number] Associated attestation - Rex So MD - 08/06/2019 5:47 PM PDTBlood sugars are slight ly better with highest being 292. Tolerated tube feeds very well. No episodes of confusion . Walking in the [place] at least 5 times a day. On exam, Fully alert and oriented, making jokes Severe icterus. 2+ pitting edema lower extremities. 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 Having regular piotr l movements. Anesthesia and cardiology consultations completed for preoperative assessment: Continue metoprolol and amiodarone for SVT. Creatinine slightly worsened today from 1.15-1.38. Will give final mL Ringer's lactate. H emoglobin is 6.9, discussed with hepatology. Will hold off blood transfusion until the rubina ng of liver transplant is clear. Once scheduled for transplant, will attempt to keep hemogl obin close to 8. -Continue tube feeds for optimizing nutrition in preparation for liver transplant -Insulin regimen changed to correct for hyperglycemia in the setting of tube feed and carb liberal diet I personally evaluated the patient, performed the tamez elements of the physical examination, and personally formulated the assessment and plan with the resident. I have reviewed the [facility] documentation and I agree with the findings, assessment, advice, orders and plan as ey are documented with changes documented as above in my note. Rex So MD professor of psychology, Division of hospital medicine, Internal Medicine, [facility] [place], MD Henrique - 08/06/2019 6:00 AM PDT Hepatology Inpatient Consult Follow-Up Note Name: Doug Lawson Etiology of Liver Disease: ETOH Cirrhosis Blood type: A+ Status: Listed MELD-Na score: 34 at 08/06/2019 4:53 AM MELD score: 32 at 08/06/2019 4:53 AM Calculated from: Serum Creatinine: 1.38 mg/dL at 08/06/2019 4:53 AM Serum Sodium: 131 mmol/L at 08/06/2019 4:53 AM Total Bilirubin: 10.3 mg/dL at 08/06/2019 4:53 AM INR(ratio): 3.30 INR at 08/06/2019 4:53 AM Age: 54 years A/P: Mr. Lawson is a 54 yo man with spur cell anemia requiring chronic transfusions c/b iron over load, EtOH cirrhosis c/b ascites. Blood type A+, listed for liver transplant,transferred f or AMS and falls found to have hyperglycemia and renal insufficiency, hospital course compli cated by SVT requiring ICU transfer and amiodarone drip. Work-up thus far has been unremarka ble, including a knee aspirate demonstrating findings most consistent with hemarthrosis. He'sdemonstrated noovert GI bleeding;so endoscopic work-up for this is unmerited in setting of known spur cell anemia. Transplant infectious disease hasalso weighed in, with no e/o infection/sepsis as etiology of SVT/afib. In regard to his tachyarrythmia, his c ardiac function appears to be compensated and is not a contraindication for transplantper se. Has been titrated off amiodarone GTT and downgraded to medicine floors. Tachyarrythmia currently controlled with PO amiodarone and metoprolol and perdiscussions withEP [facility] y[facility]ty[facility], hisSVTs should not preclude pt from transplant and can be managed in the in tra/clara-operative period. If difficult to control despite amio/metop, theycould also offe r ablative therapies prior to transplant. Patient has several risk factors for post-LT heart failure though, including ETOH as etiolo gy of heart failure, depressed EF 55-60% (low for hyperdynamics of cirrhosis patient), and i tom deposition in myocardium. Acknowledging these risks, consensus was to proceed with OLT. After discussion with transplant anesthesia and cardiology, will continue amiodarone for his tachyarrythmia. While patient awaits for OLT, would continue to optimize his nutrition with enteral feeding and continue physical therapy/occupationatal therapy. Recommendations: -continue DHT feedingfor supplemental nutrition; f/u nutrition recs re: daily calorie cou nts -continue PT/OT to improve functional status - continue rifaximin/lactulose for 3-5 BM's daily We will continue to follow along with you. Please page with any questions or concerns. This patient was staffed with , who agrees with above. Henrique Chapa MD Gastroenterology & Hepatology Fellow Pager:[phone] IE/S: Patient sleeping this morning. O: Medications: Medications Scheduled Medication Dose/Rate, Route, Frequency Last Action amiodarone (CORDARONE) tablet 200 mg 200 mg, oral, DAILY Given: 08/05 09 cholecalciferol (VITAMIN D3) capsule 50,000 Units 50,000 Units, oral, Q7D Given: 07/31 171 2 deferiprone tab 2,000 mg 2,000 mg, oral, TID Given: 08/05 2149 insulin lispro (HUMALOG) injection 1-16 Units 10 Units, subQ, DAILY Given: 08/06 0316 insulin lispro (HUMALOG) injection 1-16 Units 2 Units, subQ, QID Given: 10/16 2332 insulin lispro (HUMALOG) injection 15 Units 15 Units, subQ, TID W/MEALS Given: 08/05 2022 insulin NPH (HUMULIN N) injection 25 Units 25 Units, subQ, BEFORE BREAKFAST Given: 08/05 637 insulin NPH (HUMULIN N) injection 50 Units 50 Units, subQ, HS Given: 08/05 2332 lactulose (ENULAC) 30 g 30 g, oral, TID Given: 08/05 2149 magnesium oxide (MAG-OX) tablet 400 mg 400 mg, oral, DAILY Given: 08/05 943 metoprolol tartrate (LOPRESSOR) tablet 6.25 mg 6.25 mg, oral, BID Given: 08/05 2149 midodrine (PROAMITINE) tablet 10 mg 10 mg, oral, TID Given: 08/05 2149 multivitamin (THERA VITAMIN) 1 tablet 1 tablet, oral, DAILY Given: 08/05 943 rifAXIMin (XIFAXAN) tablet 550 mg 550 mg, oral, BID Given: 08/05 2149 zinc sulfate (ORAZINC, ZINC-220) capsule 50 mg elemental 50 mg elemental, oral, DAILY Give n: 08/05 943 PRN Medication Dose/Rate, Route, Frequency Last Action dextrose 50 % in water IV 25 mL 25 mL, IV, PRN Ordered diclofenac (VOLTAREN) 1 % gel 4 g 4 g, top, QID PRN Given: 07/23 931 glucagon (GLUCAGEN) injection 1 mg 1 mg, IM, PRN Ordered glucose chewable tablet 16 g 16 g, oral, PRN Ordered lactulose (ENULAC) 10 g 10 g, oral, Q2H PRN Given: 07/28 401 melatonin tablet 3 mg 3 mg, oral, HS PRN Given: 08/05 2151 ondansetron (ZOFRAN) tablet 4 mg 4 mg, oral, Q8H PRN Given: 08/05 245 polyethylene glycol (MIRALAX) packet 8.5 g 8.5 g, oral, DAILY PRN Ordered Vitals: Last 24 hour min/max Temp: 37.1 C (98.8 F) Temp Min: 36.9 C (98.4 F) Max: 37.1 C (98.8 F) Pulse: 71 Pulse Min: 65 Max: 76 Resp: 14 Resp Min: 14 Max: 20 BP: 99/41 BP Min: 99/41 Max: 118/54 SpO2: 98 % SpO2 Min: 98 % Max: 100 % Body mass index is 25.1 kg/m. Exam: Gen:NAD HEENT: DHT in R nares c/d/i CV:RRR+ holosystolic murmur Abd: Soft, NT,tympanic to percussion and moderately distended Neuro: No asterixis Labs: Recent Labs 08/04/1961008/06/19452 WBC 4.53 4.12 HB 7.3* 6.9* HCT 21.8* 20.3* PLT 36* -- Recent Labs 08/04/1961008/05/19 0516 08/05/19232408/06/1930908/06/19452 NA 129* -- 131* -- -- -- 131* K 4.7 -- 4.4 -- -- -- 4.6 CL 103 -- 103 -- -- -- 103 BICARB 20* -- 20* -- -- -- 19* BUN 54* -- 51* -- -- -- 55* CR 1.31* -- 1.16 -- -- -- 1.38* GLU 376* < > 282* < > 184* 292* 258* CA 8.7 -- 9.3 -- -- -- 9.0 AST 79* -- 110* -- -- -- 125* ALT 56 -- 62* -- -- -- 75* AP 204* -- 211* -- -- -- 192* TBILI 9.6* -- 11.7* -- -- -- 10.3* TP 6.4 -- 6.8 -- -- -- 6.4 ALB 2.9* -- 3.4* -- -- -- 3.0* ANIONGAP 6 -- 8 -- -- -- 9 ANIONALBCOR 8 -- 9 -- -- -- 11 < > = values in this interval not displayed. Labs: Lab Results Component Value Date MG 2.3 08/06/2019 Lab Results Component Value Date INRPT 3.30 (H) 08/06/2019 No results found for: FK506 Imaging and Other Studies: 07/17/2019 US with Dopplers IMPRESSION: Cirrhotic liver morphology with findings of portal hypertension. Unremarkable Doppler ultrasound without evidence of venous thrombosis. Cholelithiasis without evidence of cholecystitis. MELD-Na score: 34 at 08/06/2019 4:53 AM MELD score: 32 at 08/06/2019 4:53 AM Calculated from: Serum Creatinine: 1.38 mg/dL at 08/06/2019 4:53 AM Serum Sodium: 131 mmol/L at 08/06/2019 4:53 AM Total Bilirubin: 10.3 mg/dL at 08/06/2019 4:53 AM INR(ratio): 3.30 INR at 08/06/2019 4:53 AM Age: 54 years Associated attestation - Tyson Omalley MD - 08/06/2019 6:08 PM PDTHEPATOLOGY ATTENDING I have personally reviewed the history and physical exam with the GI house detective, and dis cussed the case with the house detective. I confirmed the tamez elements of the history and exam ined patient. I agree with the house detective's documentation with the following additions an d revisions. Tyson Omalley MD, MS, AGNIESZKA outboard motor tester Director of Clinical Hepatology [facility] Division of Gastroenterology/Hepatology [facility] DEPARTMENT: Hepatology - [phone] Place of Service: [facility] CSN: [id number] Suggested Modifiers: GC - Resident Involved Eliane Garza MD - 08/05/2019 6:57 AM PDT GENERAL MEDICINE PROGRESS NOTE Author: Eliane Garza MD Attending Physician: Rex So MD Hospital Day: 19 ID: ESLD, afib, spur cell anemia, iron overload 24h Events: None Subjective: Episode of abdominal pain overnight that woke him from sleep, patient thought maybe it was gas, got up to try to have bowel movement, resolved when he went back to bed. Has felt fine since then. Tolerating tube feeds well, has been walking multiple times a day. Active Medications: amiodarone (CORDARONE) tablet 200 mg, 200 mg, oral, DAILY cholecalciferol (VITAMIN D3) capsule 50,000 Units, 50,000 Units, oral, Q7D deferiprone tab 2,000 mg, 2,000 mg, oral, TID dextrose 50 % in water IV 25 mL, 25 mL, intravenous, PRN diclofenac (VOLTAREN) 1 % gel 4 g, 4 g, topical, QID PRN glucagon (GLUCAGEN) injection 1 mg, 1 mg, intramuscular, PRN glucose chewable tablet 16 g, 16 g, oral, PRN insulin lispro (HUMALOG) injection 1-16 Units, 1-16 Units, subcutaneous, DAILY insulin lispro (HUMALOG) injection 1-16 Units, 1-16 Units, subcutaneous, QID insulin lispro (HUMALOG) injection 10 Units, 10 Units, subcutaneous, TID W/MEALS insulin NPH (HUMULIN N) injection 25 Units, 25 Units, subcutaneous, BEFORE BREAKFAST insulin NPH (HUMULIN N) injection 42 Units, 42 Units, subcutaneous, HS lactulose (ENULAC) 10 g, 15 mL, oral, Q2H PRN lactulose (ENULAC) 30 g, 45 mL, oral, TID magnesium oxide (MAG-OX) tablet 400 mg, 400 mg, oral, DAILY melatonin tablet 3 mg, 3 mg, oral, HS PRN metoprolol tartrate (LOPRESSOR) tablet 6.25 mg, 6.25 mg, oral, BID midodrine (PROAMITINE) tablet 10 mg, 10 mg, oral, TID multivitamin (THERA VITAMIN) 1 tablet, 1 tablet, oral, DAILY ondansetron (ZOFRAN) tablet 4 mg, 4 mg, oral, Q8H PRN polyethylene glycol (MIRALAX) packet 8.5 g, 8.5 g, oral, DAILY PRN rifAXIMin (XIFAXAN) tablet 550 mg, 550 mg, oral, BID zinc sulfate (ORAZINC, ZINC-220) capsule 50 mg elemental, 220 mg total salt, oral, DAILY Physical Exam: Last 24 hour min/max Temp: 36.5 C (97.7 F) Temp Min: 36.5 C (97.7 F) Max: 37.1 C (98.8 F) Pulse: 72 Pulse Min: 65 Max: 76 Resp: 16 Resp Min: 16 Max: 17 BP: 118/51 BP Min: 109/47 Max: 127/52 SpO2: 99 % SpO2 Min: 98 % Max: 100 % Body mass index is 25.1 kg/m. Intake/Output Summary (Last 24 hours) at 08/05/2019657 Last data filed at 08/05/2019630 Gross per 24 hour Intake 4404 ml Output 250 ml Net 4154 ml General Appearance:Jaundiced, NAD, sitting up in bed HEENT:Scleral icterus, EOMI, MMM. DHT in nose. Respiratory:CTAB, no wheeze or crackles Cardiovascular: RRR, 2/6 holosystolic murmur loudest at left sternal border Gastrointestinal:soft, non-tender, no rebound, no guarding Musculoskeletal:1+ pitting edema to mid [place] Skin:Jaundiced, bronzed complexion Neurologic:AAOx3 Labs: Chemistries: Last 72 Hours (or 3 results) - Refreshable Recent Labs 08/03/19 0714 08/04/1961008/05/19 0232 08/05/19 0516 08/05/19 0631 NA 130* -- 129* -- -- 131* -- K 4.4 -- 4.7 -- -- 4.4 -- CL 101 -- 103 -- -- 103 -- BICARB 21 -- 20* -- -- 20* -- BUN 53* -- 54* -- -- 51* -- CR 1.20 -- 1.31* -- -- 1.16 -- GLU 371* < > 376* < > 293* 282* 343* CA 8.6 -- 8.7 -- -- 9.3 -- MG 2.0 -- 2.1 -- -- 2.1 -- PO4 2.7 -- 2.7 -- -- 2.6 -- < > = values in this interval not displayed. Lab Results Component Value Date AST 110 08/05/2019 ALT 62 08/05/2019 TBILI 11.7 08/05/2019 DIRBILI 4.2 07/07/2019 AP 211 08/05/2019 TP 6.8 08/05/2019 ALB 3.4 08/05/2019 CBC with diff last 72 hours (or 3 results) - Refreshable Recent Labs 08/04/19610 WBC 4.53 HB 7.3* HCT 21.8* PLT 36* Micro: blood cx 07/26: no growth at 5 days Imaging: no interval imaging Assessment and Plan: Mr.Jeppeis leyva 54 y/owith ESLD / EtOH c/b hepatic encephalopathy, ascites, spur cell anemia requiring chronic transfusions and resulting in iron overload, who presented with HRS and developed SVT resulting in admission to the MICU where he was loaded with amiodarone an d then was transferred to the floor on 07/22 where he is being optimized nutritionally and me dically before liver transplant. # Alcoholic Cirrhosisc/b HE, ascites, TCP # ESLD Encephalopathy has improved, AAOx3, does wax and wane a bit. Delirium remains likely due to ESLD. Infectious workup negative to date with negative UA and CXR, BCx NGTD. Continue lactu lose. Consultants -Hepatology following- Currently status 7 -lactulose 30 grams TID with PRN additionalgoal of 3-5 BM daily,rifaximin - Anesthesia consulted for preoperative eval and risk assessment - est ASA class 4 - strongly recommended to stop amio but no alternative per cards (see "afib vs aflutter" b elow) - recommended to consider CRRT intra-op if K is difficult to control on floor or if urine output decreases, as well as K monitoring and Mg replacement intraop. - should anticipate significant arrhythmias intra-op even under ideal circumstances that w ould necessitate rapid cardioversion/defibrillation - Daily CMP and INR - to calculate MELD daily per transplant request #KAR with concern for HRS Cr uptrending over past few days. Yesterday got 50g 25% albumin per hepatology recs, checke d urine Na, Cr, urea and given 1 L LR overnight. Cr now downtrending. - Midodrine 10 mg TID -Discontinuedoctreotide per hepatology recs - continue to monitor Cr # Nutrition Per hepatology, poor nutrition is barrier to transplant, recommending DHT. - DHT placed 08/01, TFs started 08/02. - TF changed to nocturnal only to promote PO intake during the day. - Nutrition following, appreciate recs. - reordered calorie count - VitD 39756 U qweekly + multivitamin without iron started 07/31. 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 Of note, A1c wi ll not be accurate due to frequent transfusions for his spur cell anemia. Was on carb control diet but changed to regular to encourage more PO intake. - Increase PM NPH to 50 units - AM NPH 25 units - increase Lispro to 15 U TID WM - SSI --> aggressive - need to refer to outpatient diabetes clinic before DC - freestyle glucometer, lancets, test strips, humalog and humalin pens sent to [facility] to deter mine coverage/copay per DM RN request- appreciate assistance with educating patient on this new diagnosis # Spur cell anemia # Iron overload Goal hemoglobin of 7. No evidence of bleeding. HDS. - Continue home [id number] mg TID. - Zinc 50 mg PO daily. - Active type and screen - Transfuse PRN - CBC q48h # Red urine Likely due to iron chelator. -ctm # Non-anion gap metabolic acidosis Urine studies show evidence of RTA. 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 This was performed in the setting of recoveri ng acute kidney injury and most likely represents poor function during recovery. The signi ficance of this is marginal in setting of improving renal function". Recommend no intervent ions at this time. - ctm # Afib vs Alutter May be related to myocardial iron depositionper cardiology. Should he have more episodes of SVT will consider increasing beta-orion and if unable to manage with that would conside r digoxin loading. Currently no recurrent episodes on BB. Hepatology recommend anesthesiolog y consult for operative evaluation given h/o SVT. Anesthesia discussed with cards possibilit y of stopping amio due to risk of hyperkalemia, however there are no alternative medications and as the patient would be precluded from transplant if he goes into afib with RVR, [place] recommends continuing amiodarone. - Rate control: metoprolol tartrate 6.25mg BID - Rhythm control: 10g amio load complete 07/26. Maintenance dose 200 mg PO daily - Electrolytes:K > 4, Mg > 2 - Per cards note 08/03 "During his liver transplant surgery, recommend pacer/defibrillator pads on during if that is practical. Could also consider having RIJ sheath in place that cou ld accommodate temp transvenous pacing wire if patient were to develops persistent complete heart block or hemodynamically significant second degree AV block." #Hyperthyroidism, mild - Unlikely to be driving tachycardia - Outpatient follow up Diet:regular + TFs Sleep: Melatonin PRN Dispo: Will have better idea by end of the week where he stands on transplant list. He sister and mother are planning to take turns coming from [place] to provide care, once he g ets his transplant. They will be here next week (08/12). Surrogate Decision Maker Primary Surrogate Decision Maker Doreen sister [phone] Secondary Surrogate Decision Maker Priyanka Rivera mother CODE:Full This patient was seen and examined by Dr. So, who agrees with the assessment and plan. Eliane Garza MD Internal Medicine PGY1 p [phone] Associated attestation - Rex So MD - 08/05/2019 6:40 PM PDTFeels well overall. Ho pes that his insulin requirement will be low when he goes home. Looking forward to nate baum the liver transplant during this admission. On exam, Fully alert and oriented, making jokes Severe icterus. 2+ pitting edema lower extremities. 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 Developed stage I KAR with mild hyponatremia today. Having regular bowel movements. Anesthesia and cardiology consultations completed for preoperative assessment: Continue metoprolol and amiodarone for SVT. Given albumin 50 g with 1 L Ringer's lactate on 08/04 due to prerenal KAR. Creatinine has improved today. -Continue tube feeds for optimizing nutrition in preparation for liver transplant -Insulin regimen changed to correct for persistent hyperglycemia in the setting of tube fee d I personally evaluated the patient, performed the tamez elements of the physical examination, and personally formulated the assessment and plan with the resident. I have reviewed the [facility] documentation and I agree with the findings, assessment, advice, orders and plan as th ey are documented with changes documented as above in my note. Rex So MD professor of psychology, Division of hospital medicine, Internal Medicine, [facility] [place], MD Henrique - 08/05/2019 6:45 AM PDT Hepatology Inpatient Consult Follow-Up Note Name: Doug Lawson Blood type: A+ Status: Listed MELD-Na score: 32 at 08/05/2019 5:16 AM MELD score: 30 at 08/05/2019 5:16 AM Calculated from: Serum Creatinine: 1.16 mg/dL at 08/05/2019 5:16 AM Serum Sodium: 131 mmol/L at 08/05/2019 5:16 AM Total Bilirubin: 11.7 mg/dL at 08/05/2019 5:16 AM INR(ratio): 3.15 INR at 08/05/2019 5:16 AM Age: 54 years A/P: Mr. Lawson is a 54 yo man with spur cell anemia requiring chronic transfusions c/b iron over load, EtOH cirrhosis c/b ascites with MELD34 (07/27), Blood type A+, listed for liver trans plant,transferred for AMS and falls found to have hyperglycemia and renal insufficiency, h ospital course complicated by SVT requiring ICU transfer and amiodarone drip. Work-up thus f ar has been unremarkable, including a knee aspirate demonstrating findings most consistent w ith hemarthrosis.He'sdemonstrated noovert GI bleeding;so endoscopic work-up for th is is unmerited in the setting of known spur cell anemia. Transplant infectious disease carver salso weighed in,with no e/o infection/sepsis as etiology of SVT/afib. In regard to his tachyarrythmia, his cardiac function appears to be compensated and is not a contraindication for transplantper se. Has been titrated off amiodarone GTT and downgraded to medicine ester ors. Tachyarrythmiacurrently controlled with PO amiodarone and metoprolol and perdiscuss ions withEP attending Dr. Mcintyre, hisSVTs should not preclude pt from transplant and can be managed in the intra/clara-operative period. If difficult to control despite amio/metop, theycould also offer ablative therapies prior to transplant. Patient has several risk factors for post-LT heart failure though, including ETOH as etiolo gy of heart failure, depressed EF 55-60% (low for hyperdynamics of cirrhosis patient), and i tom deposition in myocardium. Acknowledging these risks, consensus was to proceed with OLT. After discussion with transplant anesthesia and cardiology, will continue amiodarone for his tachyarrythmia. While patient awaits for OLT, would continue to optimize his nutrition with enteral feeding and continue physical therapy/occupationatal therapy. Recommendations: -continue DHT feedingfor supplemental nutrition; f/u nutrition recs re: daily calorie cou nts -continue PT/OT to improve functional status - continue rifaximin/lactulose for 3-5 BM's daily We will continue to follow along with you. Please page with any questions or concerns. This patient was staffed with , who agrees with above. Henrique Chapa MD Gastroenterology & Hepatology Fellow Pager:[phone] IE/S: Feeling well and strong this morning; notes not being able to eat full meals, but has be en ambulating every day multiple times. Tolerating DHT feeds without issue. O: Medications: Medications Scheduled Medication Dose/Rate, Route, Frequency Last Action amiodarone (CORDARONE) tablet 200 mg 200 mg, oral, DAILY Given: 08/04 906 cholecalciferol (VITAMIN D3) capsule 50,000 Units 50,000 Units, oral, Q7D Given: 07/31 171 2 deferiprone tab 2,000 mg 2,000 mg, oral, TID Given: 08/04 2203 insulin lispro (HUMALOG) injection 1-16 Units 6 Units, subQ, DAILY Given: 08/05 305 insulin lispro (HUMALOG) injection 1-16 Units 1 Units, subQ, QID Given: 08/04 2251 insulin lispro (HUMALOG) injection 10 Units 10 Units, subQ, TID W/MEALS Given: 08/04 1925 insulin NPH (HUMULIN N) injection 25 Units 25 Units, subQ, BEFORE BREAKFAST Given: 08/05 0 637 insulin NPH (HUMULIN N) injection 42 Units 42 Units, subQ, HS Given: 08/04 2251 lactulose (ENULAC) 30 g 30 g, oral, TID Given: 08/04 2203 magnesium oxide (MAG-OX) tablet 400 mg 400 mg, oral, DAILY Given: 08/04 905 metoprolol tartrate (LOPRESSOR) tablet 6.25 mg 6.25 mg, oral, BID Given: 08/04 2203 midodrine (PROAMITINE) tablet 10 mg 10 mg, oral, TID Given: 08/04 2203 multivitamin (THERA VITAMIN) 1 tablet 1 tablet, oral, DAILY Given: 08/04 905 rifAXIMin (XIFAXAN) tablet 550 mg 550 mg, oral, BID Given: 08/04 2203 zinc sulfate (ORAZINC, ZINC-220) capsule 50 mg elemental 50 mg elemental, oral, DAILY Give n: 08/04 905 PRN Medication Dose/Rate, Route, Frequency Last Action dextrose 50 % in water IV 25 mL 25 mL, IV, PRN Ordered diclofenac (VOLTAREN) 1 % gel 4 g 4 g, top, QID PRN Given: 07/23 931 glucagon (GLUCAGEN) injection 1 mg 1 mg, IM, PRN Ordered glucose chewable tablet 16 g 16 g, oral, PRN Ordered lactulose (ENULAC) 10 g 10 g, oral, Q2H PRN Given: 07/28 401 melatonin tablet 3 mg 3 mg, oral, HS PRN Given: 08/05 030 ondansetron (ZOFRAN) tablet 4 mg 4 mg, oral, Q8H PRN Given: 08/05 024 polyethylene glycol (MIRALAX) packet 8.5 g 8.5 g, oral, DAILY PRN Ordered Vitals: Last 24 hour min/max Temp: 36.5 C (97.7 F) Temp Min: 36.5 C (97.7 F) Max: 37.1 C (98.8 F) Pulse: 72 Pulse Min: 65 Max: 76 Resp: 16 Resp Min: 16 Max: 17 BP: 118/51 BP Min: 109/47 Max: 127/52 SpO2: 99 % SpO2 Min: 98 % Max: 100 % Body mass index is 25.1 kg/m. Exam: Gen:NAD CV:RRR+ holosystolic murmur Abd: Soft, NT,tympanic to percussion and moderately distended Neuro: No asterixis Labs: Recent Labs 08/04/19610 WBC 4.53 HB 7.3* HCT 21.8* PLT 36* Recent Labs 08/02/1951708/03/1914 08/04/1961008/05/19 0232 08/05/1916 08/05/19630 NA 131* -- 130* -- 129* -- -- 131* -- K 4.3 -- 4.4 -- 4.7 -- -- 4.4 -- CL 103 -- 101 -- 103 -- -- 103 -- BICARB 19* -- 21 -- 20* -- -- 20* -- BUN 52* -- 53* -- 54* -- -- 51* -- CR 1.21 -- 1.20 -- 1.31* -- -- 1.16 -- GLU 206* < > 371* < > 376* < > 293* 282* 343* CA 8.6 -- 8.6 -- 8.7 -- -- 9.3 -- AST 95* -- -- -- 79* -- -- 110* -- ALT 56 -- -- -- 56 -- -- 62* -- AP 146* -- -- -- 204* -- -- 211* -- TBILI 9.4* -- -- -- 9.6* -- -- 11.7* -- TP 6.3* -- -- -- 6.4 -- -- 6.8 -- ALB 2.9* -- -- -- 2.9* -- -- 3.4* -- ANIONGAP 9 -- 8 -- 6 -- -- 8 -- ANIONALBCOR 11 -- -- -- 8 -- -- 9 -- < > = values in this interval not displayed. Labs: Lab Results Component Value Date MG 2.1 08/05/2019 Lab Results Component Value Date INRPT 3.15 (H) 08/05/2019 No results found for: FK506 07/17/2019 US with Dopplers IMPRESSION: Cirrhotic liver morphology with findings of portal hypertension. Unremarkable Doppler ultrasound without evidence of venous thrombosis. Cholelithiasis without evidence of cholecystitis. MELD-Na score: 32 at 08/05/2019 5:16 AM MELD score: 30 at 08/05/2019 5:16 AM Calculated from: Serum Creatinine: 1.16 mg/dL at 08/05/2019 5:16 AM Serum Sodium: 131 mmol/L at 08/05/2019 5:16 AM Total Bilirubin: 11.7 mg/dL at 08/05/2019 5:16 AM INR(ratio): 3.15 INR at 08/05/2019 5:16 AM Age: 54 years Associated attestation - Tyson Omalley MD - 08/05/2019 5:59 PM PDTHEPATOLOGY ATTENDING I have personally reviewed the history and physical exam with the GI house detective, and dis cussed the case with the house detective. I confirmed the tamez elements of the history and exam ined patient. I agree with the house detective's documentation with the following additions an d revisions. Tyson Omalley MD, MS, AGNIESZKA outboard motor tester Director of Clinical Hepatology [facility] Division of Gastroenterology/Hepatology [facility] DEPARTMENT: Hepatology - [id number] Place of Service: [facility] CSN: [id number] Suggested Modifiers: GC - Resident Involved Henrique Chapa MD - 08/04/2019 6:47 AM PDTFormatting of this note might be different fro m the original. Hepatology Inpatient Consult Follow-Up Note Name: Doug Lawson Blood type: A+ Status: 7 Biological MELD: 32 (08/03) A/P: Mr. Lawson is a 54 yo man with spur cell anemia requiring chronic transfusions c/b iron over load, EtOH cirrhosis c/b ascites with MELD34 (07/27), Blood type A+, listed for liver trans plant,transferred for AMS and falls found to have hyperglycemia and renal insufficiency, h ospital course complicated by SVT requiring ICU transfer and amiodarone drip. Work-up thus f ar has been unremarkable, including a knee aspirate demonstrating findings most consistent w ith hemarthrosis.He'sdemonstrated noovert GI bleeding;so endoscopic work-up for th is is unmerited in the setting of known spur cell anemia. Transplant infectious disease carver austen weighed in,with no e/o infection/sepsis as etiology of SVT/afib. In regard to his tachyarrythmia, his cardiac function appears to be compensated and is not a contraindication for transplantper se. Has been titrated off amiodarone GTT and downgraded to medicine ester ors. Tachyarrythmiacurrently controlled with PO amiodarone and metoprolol and perdiscuss ions withEP attending Dr. Mcintyre, hisSVTs should not preclude pt from transplant and can be managed in the intra/clara-operative period. If difficult to control despite amio/metop, theycould also offer ablative therapies prior to transplant. Patient has several risk factors for post-LT heart failure though, including ETOH as etiolo gy of heart failure, depressed EF 55-60% (low for hyperdynamics of cirrhosis patient), and i tom deposition in myocardium.Awaiting transplant anesthesiologistevaluationfor a pre-o perative risk management consultation to help minimize operative risk during transplant. Oth er concerns including his worsening functional and nutritional status, now with DHT placed f or feeding. Today noted for worsening KAR. Would recommend working KAR up with urine studies and challe nging with 25% albumin (can give 50 grams today) and reassess Cr Recommendations: -f/u urine sodium, creatinine, urea; give 25% albumin today (50g) -continue DHT feeding for supplemental nutrition; f/u nutrition recs -continue PT/OT to improve functional status - continue rifaximin/lactulose for 3-5 BM's daily We will continue to follow along with you. Please page with any questions or concerns. This patient was staffed with Dr. Omalley , who agrees with above. Henrique Chapa MD Gastroenterology & Hepatology Fellow Pager:[phone] IE/S: Feels awake today, walking around the floors during day time. O: Medications: Medications Scheduled Medication Dose/Rate, Route, Frequency Last Action amiodarone (CORDARONE) tablet 200 mg 200 mg, oral, DAILY Given: 08/03 842 cholecalciferol (VITAMIN D3) capsule 50,000 Units 50,000 Units, oral, Q7D Given: 07/31 171 2 deferiprone tab 2,000 mg 2,000 mg, oral, TID Given: 08/03 2303 insulin lispro (HUMALOG) injection 1-16 Units 2 Units, subQ, QID Given: 08/03 2300 insulin lispro (HUMALOG) injection 10 Units 10 Units, subQ, TID W/MEALS Given: 08/03 1607 insulin NPH (HUMULIN N) injection 25 Units 25 Units, subQ, BEFORE BREAKFAST Ordered insulin NPH (HUMULIN N) injection 35 Units 35 Units, subQ, HS Given: 08/03 2300 lactulose (ENULAC) 30 g 30 g, oral, TID Given: 08/03 1608 magnesium oxide (MAG-OX) tablet 400 mg 400 mg, oral, DAILY Given: 08/03 842 metoprolol tartrate (LOPRESSOR) tablet 6.25 mg 6.25 mg, oral, BID Given: 08/03 2039 midodrine (PROAMITINE) tablet 10 mg 10 mg, oral, TID Given: 08/03 2303 multivitamin (THERA VITAMIN) 1 tablet 1 tablet, oral, DAILY Given: 08/03 842 rifAXIMin (XIFAXAN) tablet 550 mg 550 mg, oral, BID Given: 08/03 2039 zinc sulfate (ORAZINC, ZINC-220) capsule 50 mg elemental 50 mg elemental, oral, DAILY Give n: 08/03 843 PRN Medication Dose/Rate, Route, Frequency Last Action dextrose 50 % in water IV 25 mL 25 mL, IV, PRN Ordered diclofenac (VOLTAREN) 1 % gel 4 g 4 g, top, QID PRN Given: 07/23 931 glucagon (GLUCAGEN) injection 1 mg 1 mg, IM, PRN Ordered glucose chewable tablet 16 g 16 g, oral, PRN Ordered lactulose (ENULAC) 10 g 10 g, oral, Q2H PRN Given: 07/28 0401 melatonin tablet 3 mg 3 mg, oral, HS PRN Ordered polyethylene glycol (MIRALAX) packet 8.5 g 8.5 g, oral, DAILY PRN Ordered Vitals: Last 24 hour min/max Temp: 37 C (98.6 F) Temp Min: 36.7 C (98.1 F) Max: 37.1 C (98.8 F) Pulse: 70 Pulse Min: 64 Max: 82 Resp: 16 Resp Min: 16 Max: 18 BP: 100/53 BP Min: 100/53 Max: 118/52 SpO2: 99 % SpO2 Min: 97 % Max: 100 % Body mass index is 25.1 kg/m. Exam: Gen:NAD CV:RRR+ holosystolic murmur Abd: Soft, NT,tympanic to percussion and moderately distended Labs: Recent Labs 08/01/19 0755 08/02/1918 WBC 4.95 4.69 HB 8.2* 7.3* HCT 23.8* 21.7* PLT 31* 30* Recent Labs 07/31/19 0441 08/01/19 0756 08/02/19 0518 08/03/19 0714 08/03/19 2249 08/04/19 0249 08/04/19 0603 NA 132* -- 129* -- 131* -- 130* -- -- -- -- K 4.3 -- 4.5 -- 4.3 -- 4.4 -- -- -- -- CL 104 -- 101 -- 103 -- 101 -- -- -- -- BICARB 21 -- 21 -- 19* -- 21 -- -- -- -- BUN 39* -- 43* -- 52* -- 53* -- -- -- -- CR 1.04 -- 1.04 -- 1.21 -- 1.20 -- -- -- -- GLU 204* < > 221* < > 206* < > 371* < > 229* 305* 373* CA 9.0 -- 9.2 -- 8.6 -- 8.6 -- -- -- -- AST 75* -- 97* -- 95* -- -- -- -- -- -- ALT 45 -- 56 -- 56 -- -- -- -- -- -- AP 133* -- 146* -- 146* -- -- -- -- -- -- TBILI 11.3* -- 11.2* -- 9.4* -- -- -- -- -- -- TP 6.6 -- 7.0 -- 6.3* -- -- -- -- -- -- ALB 3.0* -- 3.2* -- 2.9* -- -- -- -- -- -- ANIONGAP 7 -- 7 -- 9 -- 8 -- -- -- -- ANIONALBCOR 9 -- 9 -- 11 -- -- -- -- -- -- < > = values in this interval not displayed. Labs: Lab Results Component Value Date MG 2.0 08/03/2019 Lab Results Component Value Date INRPT 3.22 (H) 08/02/2019 No results found for: FK506 07/17/2019 US with Dopplers IMPRESSION: Cirrhotic liver morphology with findings of portal hypertension. Unremarkable Doppler ultrasound without evidence of venous thrombosis. Cholelithiasis without evidence of cholecystitis. MELD-Na score: 32 at 08/03/2019 7:14 AM MELD score: 30 at 08/03/2019 7:14 AM Calculated from: Serum Creatinine: 1.20 mg/dL at 08/03/2019 7:14 AM Serum Sodium: 130 mmol/L at 08/03/2019 7:14 AM Total Bilirubin: 9.4 mg/dL at 08/02/2019 5:18 AM INR(ratio): 3.22 INR at 08/02/2019 5:18 AM Age: 54 years Associated attestation - Tyson Omalley MD - 08/04/2019 5:39 PM PDTHEPATOLOGY ATTENDING I have personally reviewed the history and physical exam with the GI house detective, and dis cussed the case with the house detective. I confirmed the tamez elements of the history and exam ined patient. I agree with the house detective's documentation with the following additions an d revisions. Appreciated the cardiology, anesthesia, Tx surgery input regarding OLT. Consensus to proceed with OLT, recognizing high risk, with amiodarone continuation as best pathway to allow life-saving procedure. While awaiting OLT, continuing nutrition, PT/OT and supportive care. Tyson Omalley MD, MS, AGNIESZKA outboard motor tester Director of Clinical Hepatology [facility] Division of Gastroenterology/Hepatology [facility] DEPARTMENT: Hepatology - [id number] Place of Service: [id number] - [facility] CSN: [id number] Suggested Modifiers: GC - Resident Involved Eliane Garza MD - 08/04/2019 6:35 AM PDT GENERAL MEDICINE PROGRESS NOTE Author: Eliane Garza MD Attending Physician: Rex So MD Hospital Day: 18 ID: ESLD, afib, spur cell anemia, iron overload 24h Events: Changed TFs to nocturnal, increased NPH Subjective: Cheerful and tolerating tube feeds well. No concerns today. Has been walking 3x/day. No evaristo st pain or palpitations noted. Active Medications: amiodarone (CORDARONE) tablet 200 mg, 200 mg, oral, DAILY cholecalciferol (VITAMIN D3) capsule 50,000 Units, 50,000 Units, oral, Q7D deferiprone tab 2,000 mg, 2,000 mg, oral, TID dextrose 50 % in water IV 25 mL, 25 mL, intravenous, PRN diclofenac (VOLTAREN) 1 % gel 4 g, 4 g, topical, QID PRN glucagon (GLUCAGEN) injection 1 mg, 1 mg, intramuscular, PRN glucose chewable tablet 16 g, 16 g, oral, PRN insulin lispro (HUMALOG) injection 1-16 Units, 1-16 Units, subcutaneous, QID insulin lispro (HUMALOG) injection 10 Units, 10 Units, subcutaneous, TID W/MEALS insulin NPH (HUMULIN N) injection 25 Units, 25 Units, subcutaneous, BEFORE BREAKFAST insulin NPH (HUMULIN N) injection 35 Units, 35 Units, subcutaneous, HS lactulose (ENULAC) 10 g, 15 mL, oral, Q2H PRN lactulose (ENULAC) 30 g, 45 mL, oral, TID magnesium oxide (MAG-OX) tablet 400 mg, 400 mg, oral, DAILY melatonin tablet 3 mg, 3 mg, oral, HS PRN metoprolol tartrate (LOPRESSOR) tablet 6.25 mg, 6.25 mg, oral, BID midodrine (PROAMITINE) tablet 10 mg, 10 mg, oral, TID multivitamin (THERA VITAMIN) 1 tablet, 1 tablet, oral, DAILY polyethylene glycol (MIRALAX) packet 8.5 g, 8.5 g, oral, DAILY PRN rifAXIMin (XIFAXAN) tablet 550 mg, 550 mg, oral, BID zinc sulfate (ORAZINC, ZINC-220) capsule 50 mg elemental, 220 mg total salt, oral, DAILY Physical Exam: Last 24 hour min/max Temp: 37 C (98.6 F) Temp Min: 36.7 C (98.1 F) Max: 37.1 C (98.8 F) Pulse: 70 Pulse Min: 64 Max: 82 Resp: 16 Resp Min: 16 Max: 18 BP: 100/53 BP Min: 100/53 Max: 118/52 SpO2: 99 % SpO2 Min: 97 % Max: 100 % Body mass index is 25.1 kg/m. Intake/Output Summary (Last 24 hours) at 08/04/2019 0635 Last data filed at 08/04/2019 0445 Gross per 24 hour Intake 1871 ml Output 700 ml Net 1171 ml General Appearance:Jaundiced, NAD HEENT:Scleral icterus, EOMI, MMM. DHT in nose. Respiratory:CTAB, no wheeze or crackles Cardiovascular: RRR, 2/6 holosystolic murmur loudest at left sternal border Gastrointestinal:soft, non-tender, no rebound, no guarding Musculoskeletal:1+ pitting edema to mid [place] Skin:Jaundiced, bronzed complexion Neurologic:AAOx3 Labs: Chemistries: Last 72 Hours (or 3 results) - Refreshable Recent Labs 08/01/19 0756 08/02/19 0518 08/03/19 0714 08/03/19 2249 08/04/19 0249 08/04/19 0603 NA 129* -- 131* -- 130* -- -- -- -- K 4.5 -- 4.3 -- 4.4 -- -- -- -- CL 101 -- 103 -- 101 -- -- -- -- BICARB 21 -- 19* -- 21 -- -- -- -- BUN 43* -- 52* -- 53* -- -- -- -- CR 1.04 -- 1.21 -- 1.20 -- -- -- -- GLU 221* < > 206* < > 371* < > 229* 305* 373* CA 9.2 -- 8.6 -- 8.6 -- -- -- -- MG 1.7 -- -- -- 2.0 -- -- -- -- PO4 -- -- -- -- 2.7 -- -- -- -- < > = values in this interval not displayed. 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 # Alcoholic Cirrhosisc/b HE, ascites, TCP # ESLD Encephalopathy has improved, AAOx3, does wax and wane a bit. Delirium remains likely due to ESLD. Infectious workup negative to date with negative UA and CXR, BCx NGTD. Continue lactu lose. Consultants -Hepatology following- Currently status 7 -lactulose 30 grams TID with PRN additionalgoal of 3-5 BM daily,rifaximin - Anesthesia consulted for preoperative eval and risk assessment - est ASA class 4 - strongly recommended to stop amio but no alternative per cards (see "afib vs aflutter" b elow) - recommended to consider CRRT intra-op if K is difficult to control on floor or if urine output decreases, as well as K monitoring and Mg replacement intraop. - should anticipate significant arrhythmias intra-op even under ideal circumstances that w ould necessitate rapid cardioversion/defibrillation - Daily CMP and INR - to calculate MELD daily per transplant request #KAR with concern for HRS Cr uptrending over past few days - challenging with 50g 25% albumin per hepatology recs - check urine Na, Cr, urea - Midodrine 10 mg TID -Discontinuedoctreotide per hepatology recs # Nutrition Per hepatology, poor nutrition is barrier to transplant, recommending DHT. - DHT placed 08/01, TFs started 08/02. - TF changed to nocturnal only to promote PO intake during the day. - Nutrition following, appreciate recs. - reordered calorie count - VitD 70358 U qweekly + multivitamin without iron started 07/31. 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 Was on carb control diet but changed to regular to encourage more PO intake. - Increase PM NPH to 42 units - AM NPH 25 units - Lispro 10 U TID WM - SSI moderate - need to refer to outpatient diabetes clinic before DC - freestyle glucometer, lancets, test strips, humalog and humalin pens sent to [facility] today to determine coverage/copay per DM RN request- appreciate assistance with educating patient on this new diagnosis # Spur cell anemia # Iron overload Goal hemoglobin of 7. No evidence of bleeding. HDS. - Continue home [id number] mg TID. - Zinc 50 mg PO daily. - Active type and screen - Transfuse PRN - CBC q48h # Red urine Likely due to iron chelator. -ctm # Non-anion gap metabolic acidosis Urine studies show evidence of RTA. 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 This was performed in the setting of recoveri ng acute kidney injury and most likely represents poor function during recovery. The signi ficance of this is marginal in setting of improving renal function". Recommend no intervent ions at this time. - ctm # Afib vs Alutter May be related to myocardial iron depositionper cardiology. Should he have more episodes of SVT will consider increasing beta-orion and if unable to manage with that would conside r digoxin loading. Currently no recurrent episodes on BB. Hepatology recommend anesthesiolog y consult for operative evaluation given h/o SVT. Anesthesia discussed with cards possibilit y of stopping amio due to risk of hyperkalemia, however there are no alternative medications and as the patient would be precluded from transplant if he goes into afib with RVR, [place] recommends continuing amiodarone. - Rate control: metoprolol tartrate 6.25mg BID - Rhythm control: 10g amio load complete 07/26. Maintenance dose 200 mg PO daily - Electrolytes:K > 4, Mg > 2 - Per cards note 08/03 "During his liver transplant surgery, recommend pacer/defibrillator pads on during if that is practical. Could also consider having RIJ sheath in place that cou ld accommodate temp transvenous pacing wire if patient were to develops persistent complete heart block or hemodynamically significant second degree AV block." #Hyperthyroidism, mild - Unlikely to be driving tachycardia - Outpatient follow up Bowel Regimen: Lactulose Diet:regular + TFs Sleep: Melatonin PRN Surrogate Decision Maker Primary Surrogate Decision Maker Doreen sister [phone] Secondary Surrogate Decision Maker Priyanka Rivera mother CODE:Full This patient was seen and examined by Dr. So, who agrees with the assessment and plan. Eliane Garza MD Internal Medicine PGY1 p [phone] Associated attestation - Rex So MD - 08/04/2019 5:46 PM PDTTold me that he is happ y to learn about his stable kidney disease being active. Feels that he probably is first or second in the list. Uncle and aunt are at bedside, were happy about this news. Severe icterus. 2+ pitting edema lower extremities. 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 Developed stage I KAR with mild hyponatremia today. FeNa 0.2%. Having regular bowel movements. -Optimizing nutrition in preparation for liver transplant -Insulin regimen changed to correct for overnight hyperglycemia in the setting of tube feed -Anesthesia and cardiology consultations completed for preoperative assessment: Continue me toprolol and amiodarone for SVT -50 g albumin infusion for KAR. Will also order 1 L Ringer's lactate to be given over 10 h ours. I personally evaluated the patient, performed the tamez elements of the physical examination, and personally formulated the assessment and plan with the resident. I have reviewed the [facility] documentation and I agree with the findings, assessment, advice, orders and plan as th ey are documented with changes documented as above in my note. Rex So MD professor of psychology, Division of hospital medicine, Internal Medicine, [facility]Eliane MD - 08/03/2019 4:21 PM PDTFormatting of this n ote might be different from the original. GENERAL MEDICINE PROGRESS NOTE Author: Eliane Garza MD Attending Physician: Rex So MD Hospital Day: ID: ESLD, afib, spur cell anemia, iron overload 24h Events: held pm metoprolol due to soft SBP ~90/45. No chest pain, SOB, or dizziness. Subjective: Walking around in halls with nurse, in good spirits. Tolerating tube feeds via dobbhoff. No abdominal pain, nausea, or vomiting. 3+ BMs yesterday. Active Medications: amiodarone (CORDARONE) tablet 200 mg, 200 mg, oral, DAILY cholecalciferol (VITAMIN D3) capsule 50,000 Units, 50,000 Units, oral, Q7D deferiprone tab 2,000 mg, 2,000 mg, oral, TID dextrose 50 % in water IV 25 mL, 25 mL, intravenous, PRN diclofenac (VOLTAREN) 1 % gel 4 g, 4 g, topical, QID PRN glucagon (GLUCAGEN) injection 1 mg, 1 mg, intramuscular, PRN glucose chewable tablet 16 g, 16 g, oral, PRN insulin lispro (HUMALOG) injection 1-16 Units, 1-16 Units, subcutaneous, QID insulin lispro (HUMALOG) injection 10 Units, 10 Units, subcutaneous, TID W/MEALS [START ON 08/04/2019] insulin NPH (HUMULIN N) injection 25 Units, 25 Units, subcutaneous, B EFORE BREAKFAST insulin NPH (HUMULIN N) injection 35 Units, 35 Units, subcutaneous, HS lactulose (ENULAC) 10 g, 15 mL, oral, Q2H PRN lactulose (ENULAC) 30 g, 45 mL, oral, TID magnesium oxide (MAG-OX) tablet 400 mg, 400 mg, oral, DAILY melatonin tablet 3 mg, 3 mg, oral, HS PRN metoprolol tartrate (LOPRESSOR) tablet 6.25 mg, 6.25 mg, oral, BID midodrine (PROAMITINE) tablet 10 mg, 10 mg, oral, TID multivitamin (THERA VITAMIN) 1 tablet, 1 tablet, oral, DAILY polyethylene glycol (MIRALAX) packet 8.5 g, 8.5 g, oral, DAILY PRN rifAXIMin (XIFAXAN) tablet 550 mg, 550 mg, oral, BID zinc sulfate (ORAZINC, ZINC-220) capsule 50 mg elemental, 220 mg total salt, oral, DAILY Physical Exam: Last 24 hour min/max Temp: 36.7 C (98.1 F) Temp Min: 36.2 C (97.2 F) Max: 37 C (98.6 F) Pulse: 69 Pulse Min: 65 Max: 82 Resp: 16 Resp Min: 16 Max: 18 BP: 111/53 BP Min: 92/45 Max: 119/45 SpO2: 99 % SpO2 Min: 97 % Max: 100 % Body mass index is 25.1 kg/m. Intake/Output Summary (Last 24 hours) at 08/03/2019 1621 Last data filed at 08/03/2019 1400 Gross per 24 hour Intake 1281 ml Output 200 ml Net 1081 ml General Appearance:Jaundiced, NAD HEENT:Scleral icterus, EOMI, MMM. DHT in nose. Respiratory:CTAB, no wheeze or crackles Cardiovascular: RRR, 2/6 holosystolic murmur loudest at left sternal border Gastrointestinal:soft, non-tender, no rebound, no guarding Musculoskeletal:1+ pitting edema to mid [place] Skin:Jaundiced, bronzed complexion Neurologic:AAOx3 Labs: Chemistries: Last 72 Hours (or 3 results) - Refreshable Recent Labs 08/01/1975508/02/1918 08/03/19 0714 08/03/19 0739 08/03/19 1236 08/03/19 1555 NA 129* -- 131* -- 130* -- -- -- K 4.5 -- 4.3 -- 4.4 -- -- -- CL 101 -- 103 -- 101 -- -- -- BICARB 21 -- 19* -- 21 -- -- -- BUN 43* -- 52* -- 53* -- -- -- CR 1.04 -- 1.21 -- 1.20 -- -- -- GLU 221* < > 206* < > 371* 394* 239* 177* CA 9.2 -- 8.6 -- 8.6 -- -- -- MG 1.7 -- -- -- 2.0 -- -- -- PO4 -- -- -- -- 2.7 -- -- -- < > = values in this interval not displayed. Liver Tests: Last 72 hours (or 3 results) Recent Labs 07/30/1952207/31/19 0441 08/01/19755 AST 68* 75* 97* ALT 39 45 56 TBILI 10.5* 11.3* 11.2* AP 123 133* 146* ALB 2.9* 3.0* 3.2* TP 6.3* 6.6 7.0 CBC with diff last 72 hours (or 3 results) - Refreshable Recent Labs 08/01/1975408/02/19517 WBC 4.95 4.69 HB 8.2* 7.3* HCT 23.8* 21.7* PLT 31* 30* Micro: blood cx 07/26: no growth at 5 days Imaging: no interval imaging Assessment and Plan: Mr.Jeppeis leyva 54 y/owith ESLD /2 EtOH c/b hepatic encephalopathy, ascites, spur cell anemia requiring chronic transfusions and resulting in iron overload, who presented with HRS and developed SVT resulting in admission to the MICU where he was loaded with amiodarone an d then was transferred to the floor on 07/22 where he will wait for a liver. # Alcoholic Cirrhosisc/b HE, ascites, TCP # ESLD Encephalopathy has improved, AAOx3, does wax and wane a bit. Delirium remains likely due to ESLD. Infectious workup negative to date with negative UA and CXR, BCx NGTD. Continue lactu lose. Consultants -Hepatology following- Currently status 7 -lactulose 30 grams TID with PRN additionalgoal of 3-5 BM daily,rifaximin - Anesthesia eval while inpatient for potential liver transplant, have been contacted and w ill evaluate # Spur cell anemia # Iron overload Goal hemoglobin of 7. No evidence of bleeding. HDS. - Continue home [id number] mg TID. - Zinc 50 mg PO daily. - Active type and screen - Transfuse PRN # Red urine Likely due to iron chelator. -ctm # Non-anion gap metabolic acidosis Urine studies show evidence of RTA. 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 This was performed in the setting of recoveri ng acute kidney injury and most likely represents poor function during recovery. The signi ficance of this is marginal in setting of improving renal function". Recommend no intervent ions at this time. - ctm #Paroxysmal Supraventricular Tachycardia May be related to myocardial iron depositionper cardiology. Should he have more episodes of SVT will consider increasing beta-orion and if unable to manage with that would conside r digoxin loading. Currently no recurrent episodes on BB. Hepatology recommend anesthesiolog y consult for operative evaluation given h/o SVT. - Rate control: metoprolol tartrate 6.25mg BID - Rhythm control: 10g amio load complete 07/26. Maintenance dose 200 mg PO daily - Electrolytes:K > 4, Mg > 2 - No significant abnormalities on tele, DC today 08/02 #KAR with concern for HRS Cr remains stable. - Midodrine 10 mg TID -Discontinuedoctreotide per hepatology recs # Nutrition Per hepatology, poor nutrition is barrier to transplant, recommending DHT. - DHT placed 08/01, TFs started 08/02. - TF change to nocturnal only to promote PO intake during the day. - Nutrition following, appreciate recs. VitD 90012 U qweekly + multivitamin without iron st arted 07/31. 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 Was on carb control diet but changed to regular to encourage more PO intake. - Change NPH 22 BID to NPH 25U am and 35U pm - higher sugars since starting TFs - Lispro 10 U TID WM - SSI moderate - need to refer to outpatient diabetes clinic before DC #Hyperthyroidism, mild - Unlikely to be driving tachycardia - Outpatient follow up Bowel Regimen: Lactulose Diet:regular + TFs Sleep: Melatonin PRN Surrogate Decision Maker Primary Surrogate Decision Maker Doreen sister [phone] Secondary Surrogate Decision Maker Priyanka Rivera mother CODE:Full This patient was seen and examined by Dr. So, who agrees with the assessment and plan. Thanks to Emeka Rowland, PA student, for his contributions to this note. Eliane Garaz MD Internal Medicine PGY1 p [phone] Associated attestation - Rex So MD - 08/03/2019 5:16 PM PDTReceived continuous tub e feeds. Blood sugars were frequently greater than 300. Reports only minimal discomfort wi th feeding tube. Walking in the [place] frequently. Told me that her daughter is in [place] for work. On exam, severely icteric and pale gentleman with dark brown complexion. Has 3/6 systolic murmur at left sternal border and second right ICS. Abdomen is distended but soft and nontender and tympanic to percussion all over. 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 -Optimizing nutrition in preparation for liver transplant -Insulin regimen changed to correct for hyperglycemia in the setting of tube feed -Awaiting anesthesia consultation for preoperative assessment -Continue metoprolol and amiodarone for SVT I personally evaluated the patient, performed the tamez elements of the physical examination, and personally formulated the assessment and plan with the resident. I have reviewed the [facility] documentation and I agree with the findings, assessment, advice, orders and plan as th ey are documented with changes documented as above in my note. Rex So MD professor of psychology, Division of hospital medicine, Internal Medicine, [facility] IllMaryam MD - 08/03/2019 1:06 PM PDTBrief Hepatology Note Mr. Lawson is a 55YOM w/ ETOH cirrhosis c/b spur cell anemia requiring numerous transfusions causing myocardial iron overload and tachyarrhythmias now controlled on amiodarone and BB. He was made status 7 last week due to inadequately controlled tachyarrhythmia and frailty. B oth are now improving - he is ambulating frequently with a walker and he is getting nutritio nal supplementation with DHT. Thus, he will be reactivated on the LT waitlist today with EMILY D-Na of 32. Maryam Baldwin MD [facility] Transplant Hepatology Fellow 4:5 8 PM PDTChoHenrique beach MD - 08/03/2019 6:52 AM PDTFormatting of this note might be differ ent from the original. Hepatology Inpatient Consult Follow-Up Note Name: Doug Lawson Blood type: A+ Status: 7 Biological MELD: 32 (08/03) A/P: Mr. Lawson is a 54 yo man with spur cell anemia requiring chronic transfusions c/b iron over load, EtOH cirrhosis c/b ascites with MELD34 (07/27), Blood type A+, listed for liver trans plant,transferred for AMS and falls found to have hyperglycemia and renal insufficiency, h ospital course complicated by SVT requiring ICU transfer and amiodarone drip. Work-up thus f ar has been unremarkable, including a knee aspirate demonstrating findings most consistent w ith hemarthrosis.He'sdemonstrated noovert GI bleeding;so endoscopic work-up for th is is unmerited in the setting of known spur cell anemia. Transplant infectious disease carver salso weighed in,with no e/o infection/sepsis as etiology of SVT/afib. In regard to his tachyarrythmia, his cardiac function appears to be compensated and is not a contraindication for transplantper se. Has been titrated off amiodarone GTT and downgraded to medicine ester ors. Tachyarrythmiacurrently controlled with PO amiodarone and metoprolol and perdiscuss ions withEP attending Dr. Mcintyre, hisSVTs should not preclude pt from transplant and can be managed in the intra/clara-operative period. If difficult to control despite amio/metop, theycould also offer ablative therapies prior to transplant. Patient has several risk factors for post-LT heart failure though, including ETOH as etiolo gy of heart failure, depressed EF 55-60% (low for hyperdynamics of cirrhosis patient), and i tom deposition in myocardium.Awaiting transplant anesthesiologist evaluation for a pre-ope rative risk management consultation to help minimize operative risk during transplant. Other concerns including his worsening functional and nutritional status, now with DHT placed for feeding. Recommendations: - transplant anesthesiologist evaluation -continue DHT feeding for supplemental nutrition -continue PT/OT to improve functional status - continue rifaximin/lactulose for 3-5 BM's daily We will continue to follow along with you. Please page with any questions or concerns. This patient was staffed with Dr. Omalley , who agrees with above. Henrique Chapa MD Gastroenterology & Hepatology Fellow Pager:[phone] IE/S: Tolerating feeds this morning; ambulating several times yesterday. O: Medications: Medications Scheduled Medication Dose/Rate, Route, Frequency Last Action amiodarone (CORDARONE) tablet 200 mg 200 mg, oral, DAILY Given: 08/02 912 cholecalciferol (VITAMIN D3) capsule 50,000 Units 50,000 Units, oral, Q7D Given: 07/31 171 2 deferiprone tab 2,000 mg 2,000 mg, oral, TID Given: 08/02 2142 insulin lispro (HUMALOG) injection 1-16 Units 3 Units, subQ, QID Given: 08/02 2241 insulin lispro (HUMALOG) injection 10 Units 10 Units, subQ, TID W/MEALS Given: 08/02 1728 insulin NPH (HUMULIN N) injection 22 Units 22 Units, subQ, BEFORE BREAKFAST AND HS Given: 08/02 2241 lactulose (ENULAC) 30 g 30 g, oral, TID Given: 08/02 1643 magnesium oxide (MAG-OX) tablet 400 mg 400 mg, oral, DAILY Given: 08/02 912 metoprolol tartrate (LOPRESSOR) tablet 6.25 mg 6.25 mg, oral, BID Given: 08/02 912 midodrine (PROAMITINE) tablet 10 mg 10 mg, oral, TID Given: 08/02 2143 multivitamin (THERA VITAMIN) 1 tablet 1 tablet, oral, DAILY Given: 08/02 912 rifAXIMin (XIFAXAN) tablet 550 mg 550 mg, oral, BID Given: 08/02 2142 zinc sulfate (ORAZINC, ZINC-220) capsule 50 mg elemental 50 mg elemental, oral, DAILY Give n: 08/02 913 PRN Medication Dose/Rate, Route, Frequency Last Action dextrose 50 % in water IV 25 mL 25 mL, IV, PRN Ordered diclofenac (VOLTAREN) 1 % gel 4 g 4 g, top, QID PRN Given: 07/23 931 glucagon (GLUCAGEN) injection 1 mg 1 mg, IM, PRN Ordered glucose chewable tablet 16 g 16 g, oral, PRN Ordered lactulose (ENULAC) 10 g 10 g, oral, Q2H PRN Given: 07/28 401 melatonin tablet 3 mg 3 mg, oral, HS PRN Ordered polyethylene glycol (MIRALAX) packet 8.5 g 8.5 g, oral, DAILY PRN Ordered Vitals: Last 24 hour min/max Temp: 36.8 C (98.2 F) Temp Min: 36.2 C (97.2 F) Max: 37.1 C (98.8 F) Pulse: 66 Pulse Min: 65 Max: 69 Resp: 16 Resp Min: 16 Max: 18 BP: 119/45 BP Min: 92/45 Max: 119/45 SpO2: 98 % SpO2 Min: 97 % Max: 100 % Body mass index is 25.1 kg/m. Exam: Gen:NAD CV:RRR+ holosystolic murmur Abd: Soft, NT,tympanic to percussion and moderately distended Labs: Recent Labs 08/01/1975408/02/19517 WBC 4.95 4.69 HB 8.2* 7.3* HCT 23.8* 21.7* PLT 31* 30* Recent Labs 07/31/19 0441 08/01/19 0756 08/02/1918 08/03/19 0007 08/03/19 0151 08/03/19 0605 NA 132* -- 129* -- 131* -- -- -- -- K 4.3 -- 4.5 -- 4.3 -- -- -- -- CL 104 -- 101 -- 103 -- -- -- -- BICARB 21 -- 21 -- 19* -- -- -- -- BUN 39* -- 43* -- 52* -- -- -- -- CR 1.04 -- 1.04 -- 1.21 -- -- -- -- GLU 204* < > 221* < > 206* < > 301* 330* 387* CA 9.0 -- 9.2 -- 8.6 -- -- -- -- AST 75* -- 97* -- 95* -- -- -- -- ALT 45 -- 56 -- 56 -- -- -- -- AP 133* -- 146* -- 146* -- -- -- -- TBILI 11.3* -- 11.2* -- 9.4* -- -- -- -- TP 6.6 -- 7.0 -- 6.3* -- -- -- -- ALB 3.0* -- 3.2* -- 2.9* -- -- -- -- ANIONGAP 7 -- 7 -- 9 -- -- -- -- ANIONALBCOR 9 -- 9 -- 11 -- -- -- -- < > = values in this interval not displayed. Labs: Lab Results Component Value Date MG 1.7 08/01/2019 Lab Results Component Value Date INRPT 3.22 (H) 08/02/2019 No results found for: FK506 07/17/2019 US with Dopplers IMPRESSION: Cirrhotic liver morphology with findings of portal hypertension. Unremarkable Doppler ultrasound without evidence of venous thrombosis. Cholelithiasis without evidence of cholecystitis. MELD-Na score: 32 at 08/02/2019 5:18 AM MELD score: 30 at 08/02/2019 5:18 AM Calculated from: Serum Creatinine: 1.21 mg/dL at 08/02/2019 5:18 AM Serum Sodium: 131 mmol/L at 08/02/2019 5:18 AM Total Bilirubin: 9.4 mg/dL at 08/02/2019 5:18 AM INR(ratio): 3.22 INR at 08/02/2019 5:18 AM Age: 54 years Associated attestation - Tyson Omalley MD - 08/03/2019 5:27 PM PDTHEPATOLOGY ATTENDING I have personally reviewed the history and physical exam with the GI house detective, and dis cussed the case with the house detective. I confirmed the tamez elements of the history and exam ined patient. I agree with the house detective's documentation with the following additions an d revisions. 54 yo M with ESTOH ESLD (MELD 34, A+) c/b A, HE. 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 Course notable for SVT on medical Rx, malnutrition. OLT discussion noted that he is a high risk candidate, especially due to his comorbidities, especially his cardiac disease. That being said, a group decision was made to proceed with OLT listing. We are obtaining anesthesia consultation (to check with them about any anesthesia issues, e specially given his cardiac RF), maximizing nutrition, and improving his ambulation/function al status. Appreciate anesthesia consultation. Continue DHT. PT. Reactivate for OLT. Tyson Omalley MD, MS, AGNIESZKA outboard motor tester Director of Clinical Hepatology [facility] Division of Gastroenterology/Hepatology [facility] DEPARTMENT: Hepatology - [phone] Place of Service: HOSP CSN: [id number] Suggested Modifiers: GC - Resident Involved Eliane Garza MD - 08/02/2019 4:51 PM PDT GENERAL MEDICINE PROGRESS NOTE Author: Eliane Garza MD Attending Physician: Rex So MD Hospital Day: 16 ID: ESLD, afib, spur cell anemia, iron overload 24h Events: none Subjective: Family visiting today. In good spirits. Tolerating DHT ok. Active Medications: amiodarone (CORDARONE) tablet 200 mg, 200 mg, oral, DAILY cholecalciferol (VITAMIN D3) capsule 50,000 Units, 50,000 Units, oral, Q7D deferiprone tab 2,000 mg, 2,000 mg, oral, TID dextrose 50 % in water IV 25 mL, 25 mL, intravenous, PRN diclofenac (VOLTAREN) 1 % gel 4 g, 4 g, topical, QID PRN glucagon (GLUCAGEN) injection 1 mg, 1 mg, intramuscular, PRN glucose chewable tablet 16 g, 16 g, oral, PRN insulin lispro (HUMALOG) injection 1-16 Units, 1-16 Units, subcutaneous, QID insulin lispro (HUMALOG) injection 10 Units, 10 Units, subcutaneous, TID W/MEALS insulin NPH (HUMULIN N) injection 22 Units, 22 Units, subcutaneous, BEFORE BREAKFAST AND HS lactulose (ENULAC) 10 g, 15 mL, oral, Q2H PRN lactulose (ENULAC) 30 g, 45 mL, oral, TID magnesium oxide (MAG-OX) tablet 400 mg, 400 mg, oral, DAILY melatonin tablet 3 mg, 3 mg, oral, HS PRN metoprolol tartrate (LOPRESSOR) tablet 6.25 mg, 6.25 mg, oral, BID midodrine (PROAMITINE) tablet 10 mg, 10 mg, oral, TID multivitamin (THERA VITAMIN) 1 tablet, 1 tablet, oral, DAILY polyethylene glycol (MIRALAX) packet 8.5 g, 8.5 g, oral, DAILY PRN rifAXIMin (XIFAXAN) tablet 550 mg, 550 mg, oral, BID zinc sulfate (ORAZINC, ZINC-220) capsule 50 mg elemental, 220 mg total salt, oral, DAILY Physical Exam: Last 24 hour min/max Temp: 36.6 C (97.9 F) Temp Min: 36.6 C (97.9 F) Max: 37.3 C (99.1 F) Pulse: 65 Pulse Min: 62 Max: 75 Resp: 18 Resp Min: 16 Max: 18 BP: 114/45 BP Min: 93/78 Max: 117/56 SpO2: 100 % SpO2 Min: 97 % Max: 100 % Body mass index is 25.1 kg/m. Intake/Output Summary (Last 24 hours) at 08/02/2019 1651 Last data filed at 08/02/2019 0858 Gross per 24 hour Intake 970 ml Output 0 ml Net 970 ml General Appearance:Jaundiced, lying in bed, comfortable, NAD HEENT:Scleral icterus, EOMI, MMM. DHT in nose. Respiratory:CTAB, no wheeze or crackles Cardiovascular: RRR, 2/6 holosystolic murmur loudest at left sternal border Gastrointestinal:soft, non-tender, no rebound, no guarding Musculoskeletal:1+ pitting edema to mid [place] Skin:Jaundiced, bronzed complexion Neurologic:AAOx3 Labs: Chemistries: Last 72 Hours (or 3 results) - Refreshable Recent Labs 07/31/19 0441 08/01/19 0756 08/02/19 0518 08/02/19 0858 08/02/19 1220 NA 132* -- 129* -- 131* -- -- K 4.3 -- 4.5 -- 4.3 -- -- CL 104 -- 101 -- 103 -- -- BICARB 21 -- 21 -- 19* -- -- BUN 39* -- 43* -- 52* -- -- CR 1.04 -- 1.04 -- 1.21 -- -- GLU 204* < > 221* < > 206* 196* 167* CA 9.0 -- 9.2 -- 8.6 -- -- MG -- -- 1.7 -- -- -- -- < > = values in this interval not displayed. Liver Tests: Last 72 hours (or 3 results) Recent Labs 07/30/1952207/31/1944008/01/19755 AST 68* 75* 97* ALT 39 45 56 TBILI 10.5* 11.3* 11.2* AP 123 133* 146* ALB 2.9* 3.0* 3.2* TP 6.3* 6.6 7.0 CBC with diff last 72 hours (or 3 results) - Refreshable Recent Labs 07/31/1944008/01/1975408/02/19517 WBC 4.09 4.95 4.69 HB 8.0* 8.2* 7.3* HCT 23.2* 23.8* 21.7* PLT 26* 31* 30* Micro: blood cx 07/26: no growth at 5 days Imaging: no interval imaging Assessment and Plan: a 54 y/owith ESLD 2/2 EtOH c/b hepatic encephalopathy, ascites, spur cell anemia requiring chronic transfusions and resulting in iron overload, who presented with HRS and developed SVT resulting in admission to the MICU where he was loaded with amiodarone an d then was transferred to the floor on 07/22 where he will wait for a liver. # Alcoholic Cirrhosisc/b HE, ascites, TCP # ESLD Encephalopathy has improved, AAOx3, does wax and wane a bit. Delirium remains likely due to ESLD. Infectious workup negative to date with negative UA and CXR, BCx NGTD. Continue lactu lose. Consultants -Hepatology following- Currently status 7 -lactulose 30 grams TID with PRN additionalgoal of 3-5 BM daily,rifaximin - Anesthesia eval while inpatient for potential liver transplant, have been contacted and w ill evaluate # Spur cell anemia # Iron overload Goal hemoglobin of 7. No evidence of bleeding. HDS. - Continue home [id number] mg TID. - Zinc 50 mg PO daily. - Active type and screen - Transfuse PRN # Red urine Likely due to iron chelator. -ctm # Non-anion gap metabolic acidosis Urine studies show evidence of RTA. 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 This was performed in the setting of recoveri ng acute kidney injury and most likely represents poor function during recovery. The signi ficance of this is marginal in setting of improving renal function". Recommend no intervent ions at this time. - ctm #Paroxysmal Supraventricular Tachycardia May be related to myocardial iron depositionper cardiology. Should he have more episodes of SVT will consider increasing beta-orion and if unable to manage with that would conside r digoxin loading. Currently no recurrent episodes on BB. Hepatology recommend anesthesiolog y consult for operative evaluation given h/o SVT. - Rate control: metoprolol tartrate 6.25mg BID - Rhythm control: 10g amio load complete 07/26. Maintenance dose 200 mg PO daily - Electrolytes:K > 4, Mg > 2 - No significant abnormalities on tele, DC today 08/02 #KAR with concern for HRS Cr remains stable. - Midodrine 10 mg TID -Discontinuedoctreotide per hepatology recs # Nutrition Per hepatology, poor nutrition is barrier to transplant, recommending DHT. - DHT placed 08/01, TFs started 08/02, once at goal will transition to nocturnal feeds per lining baster's recs to promote PO intake during the day - Nutrition following, appreciate recs. VitD 34212 U qweekly + multivitamin without iron st arted 07/31. 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 Was on carb control diet but changed to regular to encourage more PO intake. - NPH 22 U BID - Lispro 10 U TID WM - SSI moderate #Hyperthyroidism, mild - Unlikely to be driving tachycardia - Outpatient follow up Bowel Regimen: Lactulose Diet:regular + TFs Sleep: Melatonin PRN Surrogate Decision Maker Primary Surrogate Decision Maker Doreen sister [phone] Secondary Surrogate Decision Maker Priyanka Rivera mother CODE:Full This patient was seen and examined by Dr. So, who agrees with the assessment and plan. Eliane Garza MD Internal Medicine PGY1 p [phone] Associated attestation - Rex So MD - 08/03/2019 12:09 PM PDTSee separate attestatio n. Virgie Walls Lokesh, MD - 08/02/2019 4:48 PM PDTMedicine attending attestation Told me that the Dobbhoff tube was placed uneventfully and without much discomfort. Took a shower just before my visit and feels cold. Reports taking a few walks with the floor staf f. Uncle and aunt are visiting today. On active questioning, they reported that patient's complexion has darkened in the last few years. Reports improved mentation. 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 -Optimizing nutrition in preparation for liver transplant -Awaiting anesthesia consultation for preoperative assessment. I had a long conversation with the patient's uncle and aunt were at bedside. Explained merlyn t the hurdles to liver transplant are poor nutrition and physical condition, both of which a re being optimized right now. They have been encouraging the patient to eat more nutritious food. I personally evaluated the patient, performed the tamez elements of the physical examination, and personally formulated the assessment and plan with the resident. I have reviewed the wr itten documentation and I agree with the findings, assessment, advice, orders and plan as th ey are documented with changes documented as above in my note. I personally spent 41 minutes in the care of this patient today, more than 50% was spent in counseling and coordination. Rex So MD professor of psychology, Division of hospital medicine, Internal Medicine, [facility] Eliane Garza MD - 08/01/2019 1:54 PM PDTFormatting of this note might be different f rom the original. GENERAL MEDICINE PROGRESS NOTE Author: Eliane Garza MD Attending Physician: Rex So MD Hospital Day: 15 ID: ESLD, afib, spur cell anemia, iron overload 24h Events: none Subjective: Trying to eat more but doesn't enjoy the food. Again reluctant but agreeable to getting DHT placed. Active Medications: amiodarone (CORDARONE) tablet 200 mg, 200 mg, oral, DAILY cholecalciferol (VITAMIN D3) capsule 50,000 Units, 50,000 Units, oral, Q7D deferiprone tab 2,000 mg, 2,000 mg, oral, TID dextrose 50 % in water IV 25 mL, 25 mL, intravenous, PRN diclofenac (VOLTAREN) 1 % gel 4 g, 4 g, topical, QID PRN glucagon (GLUCAGEN) injection 1 mg, 1 mg, intramuscular, PRN glucose chewable tablet 16 g, 16 g, oral, PRN insulin lispro (HUMALOG) injection 1-16 Units, 1-16 Units, subcutaneous, QID insulin lispro (HUMALOG) injection 10 Units, 10 Units, subcutaneous, TID W/MEALS insulin NPH (HUMULIN N) injection 22 Units, 22 Units, subcutaneous, BEFORE BREAKFAST AND HS lactulose (ENULAC) 10 g, 15 mL, oral, Q2H PRN lactulose (ENULAC) 30 g, 45 mL, oral, TID lidocaine (XYLOCAINE URO-JET) 2 % jelly, , Mouth/Throat, ONCE melatonin tablet 3 mg, 3 mg, oral, HS PRN metoprolol tartrate (LOPRESSOR) tablet 6.25 mg, 6.25 mg, oral, BID midodrine (PROAMITINE) tablet 10 mg, 10 mg, oral, TID multivitamin (THERA VITAMIN) 1 tablet, 1 tablet, oral, DAILY polyethylene glycol (MIRALAX) packet 8.5 g, 8.5 g, oral, DAILY PRN rifAXIMin (XIFAXAN) tablet 550 mg, 550 mg, oral, BID zinc sulfate (ORAZINC, ZINC-220) capsule 50 mg elemental, 220 mg total salt, oral, DAILY Physical Exam: Last 24 hour min/max Temp: 36.8 C (98.2 F) Temp Min: 36.4 C (97.5 F) Max: 37 C (98.6 F) Pulse: 63 Pulse Min: 63 Max: 69 Resp: 16 Resp Min: 16 Max: 18 BP: 107/51 BP Min: 100/52 Max: 122/59 SpO2: 100 % SpO2 Min: 99 % Max: 100 % Body mass index is 25.1 kg/m. Intake/Output Summary (Last 24 hours) at 08/01/2019 1354 Last data filed at 08/01/2019 1100 Gross per 24 hour Intake 2685 ml Output 100 ml Net 2585 ml General Appearance:Jaundiced, lying in bed, comfortable, NAD HEENT:Scleral icterus, EOMI, MMM Respiratory:CTAB, no wheeze or crackles Cardiovascular: RRR, 2/6 holosystolic murmur loudest at left sternal border Gastrointestinal:Obese, soft, non-tender, no rebound, no guarding Musculoskeletal:1+ pitting edema to mid [place] Skin:Jaundiced. Large ecchymosis over R knee Neurologic:AAOx3 Labs: Chemistries: Last 72 Hours (or 3 results) - Refreshable Recent Labs 07/30/1952207/31/1944008/01/19 0756 08/01/19 0827 08/01/19 1213 NA 131* -- 132* -- 129* -- -- K 4.3 -- 4.3 -- 4.5 -- -- CL 104 -- 104 -- 101 -- -- BICARB 19* -- 21 -- 21 -- -- BUN 39* -- 39* -- 43* -- -- CR 1.05 -- 1.04 -- 1.04 -- -- GLU 222* < > 204* < > 221* 228* 214* CA 8.7 -- 9.0 -- 9.2 -- -- < > = values in this interval not displayed. Liver Tests: Last 72 hours (or 3 results) Recent Labs 07/30/1952207/31/1944008/01/19755 AST 68* 75* 97* ALT 39 45 56 TBILI 10.5* 11.3* 11.2* AP 123 133* 146* ALB 2.9* 3.0* 3.2* TP 6.3* 6.6 7.0 CBC with diff last 72 hours (or 3 results) - Refreshable Recent Labs 07/30/19 0523 07/31/19 0441 08/01/19 0755 WBC 3.94 4.09 4.95 HB 6.8* 8.0* 8.2* HCT 19.9* 23.2* 23.8* PLT 27* 26* 31* NEUTROPERC 66.4 -- -- LYMPHPERC 21.7 -- -- MONOPERC 8.5 -- -- BASOPERC 0.5 -- -- EOSPERC 2.7 -- -- Micro: blood cx 07/26: no growth at 5 days Imaging: no interval imaging Assessment and Plan: Mr.Jeppeis leyva 54 y/owith ESLD / EtOH c/b hepatic encephalopathy, ascites, spur cell anemia requiring chronic transfusions and resulting in iron overload, who presented with HRS and developed SVT resulting in admission to the MICU where he was loaded with amiodarone an d then was transferred to the floor on 07/22 where he will wait for a liver. 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 Delirium remains likely due to ESLD. Infectious katarina p negative to date with negative UA and CXR, BCx NGTD. Continue lactulose. Consultants -H epatology following- Currently status 7 --lactulose titration 30 grams TID with PRN additionalgoal of 3-5 BM daily,rifaximin - Anesthesia eval while inpatient for potential liver transplant, contacted yesterday, will evaluate # Spur cell anemia # Iron overload Goal hemoglobin of 7. No evidence of bleeding. HDS. - Continue home [id number] mg TID. - Zinc 50 mg PO daily. - Active type and screen. # Red urine Likely due to iron chelator. -ctm # Non-anion gap metabolic acidosis Urine studies show evidence of RTA. 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 This was performed in the setting of recoveri ng acute kidney injury and most likely represents poor function during recovery. The signi ficance of this is marginal in setting of improving renal function", Recommend no intervent ions at this time. - ctm #Paroxysmal Supraventricular Tachycardia May be related to myocardial iron depositionper cardiology. Should he have more episodes of SVT will consider increasing beta-orion and if unable to manage with that would conside r digoxin loading. Currently no recurrent episodes on BB. Hepatology recommend anesthesiolog y consult for operative evaluation given h/o SVT. - Rate control: metoprolol tartrate 6.25mg BID - Rhythm control: 10g amio load complete 07/26. Maintenance dose 200 mg PO daily - Electrolytes:K > 4, Mg > 2 - Monitoring: telemetry - borderline 1st degree heart block noted on tele, will get 12 lead ekg today #KAR with concern for HRS Cr remains stable. - Midodrine 10 mg TID -Discontinuedoctreotide per hepatology recs # Nutrition Per hepatology, poor nutrition is barrier to transplant,continue to recommend DHT. - will try again to place DHT today with lidocaine to help alleviate discomfort - will start TFs when placed - Nutrition following, appreciate recs. VitD 94886 U qweekly + multivitamin without iron st arted 07/31. 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 Was on carb control diet but changed to regular to encourage more PO intake. - NPH 22 U BID - Lispro 10 U TID WM - change SSI to moderate today - simulation educator to see him as DM is new diagnosis as of this admission #Hyperthyroidism, mild - Unlikely to be driving tachycardia - Outpatient follow up Bowel Regimen: Lactulose Diet:Mechanical soft, thin liquids, regular DVT PPx:none Monitoring:tele for SVT Sleep: Melatonin PRN Surrogate Decision Maker Primary Surrogate Decision Maker Doreen sister [phone] Secondary Surrogate Decision Maker Priyanka Rivera mother CODE:Full This patient was seen and examined by Dr. So, who agrees with the assessment and plan. Eliane Garza MD Internal Medicine PGY1 p [phone] Associated attestation - Rex So MD - 08/01/2019 4:39 PM PDTEvaluated the patient a t bedside with the medicine team. Dobbhoff was not placed by radiology as the recommended b edside attempts first. Patient has reluctantly agreed to feeding tube placement. Also agre eable to frequent walks on the floor to improve physical condition. 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 -will optimize nutrition in preparation for liver transplant -Awaiting anesthesia consultation for preoperative assessment. I personally evaluated the patient, performed the tamez elements of the physical examination, and personally formulated the assessment and plan with the resident. I have reviewed the [facility] documentation and I agree with the findings, assessment, advice, orders and plan as th ey are documented with changes documented as above in my note. Rex So MD professor of psychology, Division of hospital medicine, Internal Medicine, [facility] CenterDipesh brown RN - 08/01/2019 9:55 AM PDT5A rm 5 pt Jeppe. Insert DH T order remains in Epic. Please advise if DHT placement is indicated. Dipesh DONOHUE [id number]. 5a rm 5 pt Jeppe. Telemetry notified me of the QT interval of 540. Dipesh DONOHUE [id number] lly signed by Dipesh Hendrix RN at 08/01/2019 4:04 PM Amanda Barlow MD - 08/01/2019 9:25 AM PDT Hepatology Follow-Up Note 08/01/2019 Impression/Plan: Blood type: A+ Status: 7 Biological MELD: 31 (07/31) Mr. Lawson is a 54 yo man with spur cell anemia requiring chronic transfusions c/b iron over load, EtOH cirrhosis c/b ascites with MELD34 (07/27), Blood type A+, listed for liver trans plant (currently status 7),transferred for AMS and falls found to have hyperglycemia and r enal insufficiency, hospital course complicated by SVT requiring ICU transfer and amiodarone drip, now on amiodarone PO and metoprolol with control. At this time unclear inciting cause , transplant ID did not feel there was an infection. Per EP, his SVTs should not preclude pt from transplant and can be managed in the intra/per i-operative period. Despite this, patient has several risk factors for post-LT heart failure (ETOH as etiology of heart failure, depressed EF 55-60%, and iron deposition in myocardium) . Discussed at selection conference on 07/30 and recommended transplant anesthesiologist job davis for pre-operative risk management consultation. Other concerns including his worsening functional and nutritional status; currently not maryjo erating PO. Recommending DHT placement for enteral feeding at this time. Plan: - Patient still remains Status 7 at this time on the liver transplant list - Follow up transplant anesthesia recommendations - Have DHT placed (first one kinked in the distal esophagus and now team will ask for radio logy to place under fluoro), then start tube feeds - Walk and move around at least three times per day, work with PT/OT to improve functional status - Continue rifaximin - Continue lactulose, goal 3-5 bm per day We will continue to follow. This plan was discussed and formulated with hepatology attendDr. Kathrin ariaza. Please call with any questions. Amanda Rosario MD Fellow, Gastroenterology and Hepatology Pager: [phone] Interval History: First DHT kinked in distal esophagus with tip pointing retrograde and now team will ask bod y radiology to place under fluoro Waxing and waning mental status No abdominal pain Inpatient Medications: amiodarone (CORDARONE) tablet 200 mg, 200 mg, oral, DAILY cholecalciferol (VITAMIN D3) capsule 50,000 Units, 50,000 Units, oral, Q7D deferiprone tab 2,000 mg, 2,000 mg, oral, TID dextrose 50 % in water IV 25 mL, 25 mL, intravenous, PRN diclofenac (VOLTAREN) 1 % gel 4 g, 4 g, topical, QID PRN glucagon (GLUCAGEN) injection 1 mg, 1 mg, intramuscular, PRN glucose chewable tablet 16 g, 16 g, oral, PRN insulin lispro (HUMALOG) injection 1-16 Units, 1-16 Units, subcutaneous, QID insulin lispro (HUMALOG) injection 10 Units, 10 Units, subcutaneous, TID W/MEALS insulin NPH (HUMULIN N) injection 22 Units, 22 Units, subcutaneous, BEFORE BREAKFAST AND HS lactulose (ENULAC) 10 g, 15 mL, oral, Q2H PRN lactulose (ENULAC) 30 g, 45 mL, oral, TID melatonin tablet 3 mg, 3 mg, oral, HS PRN metoprolol tartrate (LOPRESSOR) tablet 6.25 mg, 6.25 mg, oral, BID midodrine (PROAMITINE) tablet 10 mg, 10 mg, oral, TID multivitamin (THERA VITAMIN) 1 tablet, 1 tablet, oral, DAILY polyethylene glycol (MIRALAX) packet 8.5 g, 8.5 g, oral, DAILY PRN rifAXIMin (XIFAXAN) tablet 550 mg, 550 mg, oral, BID zinc sulfate (ORAZINC, ZINC-220) capsule 50 mg elemental, 220 mg total salt, oral, DAILY Exam BP 122/59 (BP Location: Left upper arm, Patient Position: Lying on back) | Pulse 69 | Tem p 36.4 C (97.5 F) (Oral) | Resp 16 | Ht 1.803 m (5' 11") | Wt 81.6 kg (180 lb) | SpO 2 100% | BMI 25.10 kg/m | BSA 2.02 m Systolic (24hrs), Av , Min:100 , Max:122 Diastolic (24hrs), Av, Min:49, Max:59 Pulse Av.3 Min: 64 Max: 69 Temp Av.8 C (98.3 F) Min: 36.4 C (97.5 F) Max: 37 C (98.6 F) Resp Av.4 Min: 16 Max: 18 SpO2 Av.5 % Min: 99 % Max: 100 % General: aler but sometimes mixes up words or slow to respond, NAD CV: RRR Lungs: clear Abd: + BS, soft, nondistended Labs: CBC with diff last 72 hours (or 3 results) Recent Labs 07/30/1952207/31/1944008/01/19 075 WBC 3.94 4.09 4.95 HB 6.8* 8.0* 8.2* HCT 19.9* 23.2* 23.8* PLT 27* 26* -- NEUTROPERC 66.4 -- -- LYMPHPERC 21.7 -- -- MONOPERC 8.5 -- -- BASOPERC 0.5 -- -- EOSPERC 2.7 -- -- Chemistries: Last 72 Hours (or 3 results): Recent Labs 07/30/1952207/31/1944008/01/19755 NA 131* 132* 129* K 4.3 4.3 4.5 CL 104 104 101 BICARB 19* 21 21 BUN 39* 39* 43* CR 1.05 1.04 1.04 CA 8.7 9.0 9.2 No components found for: INR Liver Tests: Last 72 hours (or 3 results) Recent Labs 07/30/1952207/31/1944008/01/19 0756 AST 68* 75* 97* ALT 39 45 56 TBILI 10.5* 11.3* 11.2* AP 123 133* 146* ALB 2.9* 3.0* 3.2* TP 6.3* 6.6 7.0 Associated attestation - Laurita Pinon MD - 08/01/2019 4:10 PM PDTHepatology Atten ding I saw and examined this patient with Dr. Rosario, and agree with the findings, assessment, and plan as described in the noted from 08-01-19, which corresponds to the date when I personall y saw this patient. I spent a total of 25 minutes was spent in the care and managment of this patient, of which greater than 50% was spent on counseling and/or coordination of care for the conditions of cirrhosis due to alcohol abuse, iron overload, hepatic encephalopathy. Henrique Chapa MD - 07/31/2019 5:11 PM PDTFormatting of this note might be different fro m the original. Hepatology Inpatient Consult Follow-Up Note Name: Doug Lawson A/P: Mr. Lawson is a 54 yo man with spur cell anemia requiring chronic transfusions c/b iron over load, EtOH cirrhosis c/b ascites with MELD34 (07/27), Blood type A+, listed for liver trans plant,transferred for AMS and falls found to have hyperglycemia and renal insufficiency, h ospital course complicated by SVT requiring ICU transfer and amiodarone drip. Work-up thus f ar has been unremarkable, including a knee aspirate demonstrating findings most consistent w ith hemarthrosis.He'sdemonstrated noovert GI bleeding;so endoscopic work-up for th is is unmerited in the setting of known spur cell anemia. Transplant infectious disease carver salso weighed in,with no e/o infection/sepsis as etiology of SVT/afib. In regard to his tachyarrythmia, his cardiac function appears to be compensated and is not a contraindication for transplantper se. Has been titrated off amiodarone GTT and downgraded to medicine ester ors. Tachyarrythmiacurrently controlled with PO amiodarone and metoprolol and perdiscuss ions withEP attending Dr. Mcintyre, hisSVTs should not preclude pt from transplant and can be managed in the intra/clara-operative period. If difficult to control despite amio/metop, theycould also offer ablative therapies prior to transplant. Patient has several risk factors for post-LT heart failure though, including ETOH as etiolo gy of heart failure, depressed EF 55-60% (low for hyperdynamics of cirrhosis patient), and i tom deposition in myocardium.Would recommend transplant anesthesiologist evaluation for a pre-operative risk management consultation to help minimize operative risk during transplant . Other concerns including his worsening functional and nutritional status; currently not to lerating PO. Recommending DHT placement for enteral feeding at this time. Recommendations: - transplant anesthesiologist evaluation for pre-op risk management -recommendDHT for supplemental nutrition given minimal PO intake; recommend daily calor ie count -continue PT/OT to improve functional status - continue rifaximin/lactulose for 3-5 BM's daily We will continue to follow along with you. Please page with any questions or concerns. This patient was staffed with , who agrees with above. Henrique Chapa MD Gastroenterology & Hepatology Fellow Pager:[phone] IE/S: Awake and alert this morning, wishing to try DHT feeding if necessary. O: Medications: Medications Scheduled Medication Dose/Rate, Route, Frequency Last Action amiodarone (CORDARONE) tablet 200 mg 200 mg, oral, DAILY Given: 07/31 851 cholecalciferol (VITAMIN D3) capsule 50,000 Units 50,000 Units, oral, Q7D Ordered deferiprone tab 2,000 mg 2,000 mg, oral, TID Given: 07/31 854 insulin lispro (HUMALOG) injection 1-16 Units 2 Units, subQ, QID Given: 07/31 1219 insulin lispro (HUMALOG) injection 10 Units 10 Units, subQ, TID W/MEALS Given: 07/31 1219 insulin NPH (HUMULIN N) injection 22 Units 22 Units, subQ, BEFORE BREAKFAST AND HS Given: 07/31 855 lactulose (ENULAC) 30 g 30 g, oral, TID Given: 07/31 854 metoprolol tartrate (LOPRESSOR) tablet 6.25 mg 6.25 mg, oral, BID Given: 07/31 851 midodrine (PROAMITINE) tablet 10 mg 10 mg, oral, TID Given: 07/31 851 multivitamin (THERA VITAMIN) 1 tablet 1 tablet, oral, DAILY Ordered rifAXIMin (XIFAXAN) tablet 550 mg 550 mg, oral, BID Given: 07/31 851 zinc sulfate (ORAZINC, ZINC-220) capsule 50 mg elemental 50 mg elemental, oral, DAILY Give n: 10/11 0851 PRN Medication Dose/Rate, Route, Frequency Last Action dextrose 50 % in water IV 25 mL 25 mL, IV, PRN Ordered diclofenac (VOLTAREN) 1 % gel 4 g 4 g, top, QID PRN Given: 07/23 931 glucagon (GLUCAGEN) injection 1 mg 1 mg, IM, PRN Ordered glucose chewable tablet 16 g 16 g, oral, PRN Ordered lactulose (ENULAC) 10 g 10 g, oral, Q2H PRN Given: 07/28 401 melatonin tablet 3 mg 3 mg, oral, HS PRN Ordered polyethylene glycol (MIRALAX) packet 8.5 g 8.5 g, oral, DAILY PRN Ordered Vitals: Last 24 hour min/max Temp: 36.9 C (98.4 F) Temp Min: 36.5 C (97.7 F) Max: 37 C (98.6 F) Pulse: 65 Pulse Min: 63 Max: 66 Resp: 16 Resp Min: 16 Max: 18 BP: 114/50 BP Min: 110/59 Max: 128/62 SpO2: 100 % SpO2 Min: 100 % Max: 100 % Body mass index is 25.1 kg/m. Exam: Gen:NAD CV:RRR+ holosystolic murmur Abd: Soft, NT,tympanic to percussion and moderately distended Labs: Recent Labs 07/28/19 2250 07/29/1953607/30/1952207/31/19440 WBC 5.85 5.54 3.94 4.09 HB 8.5* 8.0* 6.8* 8.0* HCT 24.5* 23.9* 19.9* 23.2* PLT 31* 28* 27* 26* NEUTROPERC 72.5* -- 66.4 -- LYMPHPERC 19.0 -- 21.7 -- MONOPERC 5.8 -- 8.5 -- BASOPERC 0.3 -- 0.5 -- EOSPERC 1.9 -- 2.7 -- Recent Labs 07/29/1953607/30/1952207/31/19 0441 07/31/1983607/31/19 1159 NA 134* -- 131* -- 132* -- -- K 4.6 -- 4.3 -- 4.3 -- -- CL 107 -- 104 -- 104 -- -- BICARB 17* -- 19* -- 21 -- -- BUN 37* -- 39* -- 39* -- -- CR 1.04 -- 1.05 -- 1.04 -- -- GLU 210* < > 222* < > 204* 187* 204* CA 8.8 -- 8.7 -- 9.0 -- -- AST 85* -- 68* -- 75* -- -- ALT 44 -- 39 -- 45 -- -- AP 119 -- 123 -- 133* -- -- TBILI 12.8* -- 10.5* -- 11.3* -- -- TP 7.0 -- 6.3* -- 6.6 -- -- ALB 3.2* -- 2.9* -- 3.0* -- -- ANIONGAP 10 -- 8 -- 7 -- -- ANIONALBCOR 12* -- 10 -- 9 -- -- < > = values in this interval not displayed. Labs: Lab Results Component Value Date MG 1.5 07/26/2019 Lab Results Component Value Date INRPT 3.15 (H) 07/31/2019 No results found for: FK506 Imaging and Other Studies: 07/17/2019 US with Dopplers IMPRESSION: Cirrhotic liver morphology with findings of portal hypertension. Unremarkable Doppler ultrasound without evidence of venous thrombosis. Cholelithiasis without evidence of cholecystitis. MELD-Na score: 31 at 07/31/2019 4:41 AM MELD score: 29 at 07/31/2019 4:41 AM Calculated from: Serum Creatinine: 1.04 mg/dL at 07/31/2019 4:41 AM Serum Sodium: 132 mmol/L at 07/31/2019 4:41 AM Total Bilirubin: 11.3 mg/dL at 07/31/2019 4:41 AM INR(ratio): 3.15 INR at 07/31/2019 4:41 AM Age: 54 years Associated attestation - Laurita Pinon MD - 08/01/2019 4:21 PM PDTHepatology Atten ding I saw and examined this patient with , and agree with the findings, assessment, and plan as described in the noted from 07-31-19, which corresponds to the date when I personal ly saw this patient. I spent a total of 25 minutes was spent in the care and managment of this patient, of which greater than 50% was spent on counseling and/or coordination of care for the conditions of cirrhosis due to alcohol, hepatic encephalopathy, malnutrition. Julian Feliciano MD - 07/31/2019 12:46 PM PDT Gen Med 3 Service Progress Note 24 Hour Events: - no acute events overnight Subjective: Seen at bedside this morning. No complaints today. States he is trying to eat more but he d oesn't like the food very much. Hesitant about DHT, but understands it is what he needs in o rder to get enough nutrition prior to potential transplant. Denies chest pain, palpitations, or sob. 8-system ROS otherwise negative. Nursing and consulting service notes reviewed. Objective: Physical Examination: Vitals interpretation - stable Last 24 hour min/max Temp: 36.5 C (97.7 F) Temp Min: 36.5 C (97.7 F) Max: 37 C (98.6 F) Pulse: 63 Pulse Min: 63 Max: 68 Resp: 16 Resp Min: 16 Max: 18 BP: 128/62 BP Min: 108/62 Max: 128/62 SpO2: 100 % SpO2 Min: 100 % Max: 100 % Body mass index is 25.1 kg/m. Intake/Output Summary (Last 24 hours) at 07/31/2019 1248 Last data filed at 07/31/2019 1000 Gross per 24 hour Intake 3616 ml Output 2625 ml Net 991 ml Medications reviewed. General Appearance:Jaundiced, lying in bed, comfortable, NAD HEENT:Scleral icterus, EOMI, MMM Respiratory:CTAB, no wheeze or crackles Cardiovascular: RRR, 2/6 holosystolic murmur loudest at left sternal border Gastrointestinal:Obese, soft, non-tender, no rebound, no guarding Musculoskeletal:1+ pitting edema to mid delgadillo Skin:Jaundiced. Large ecchymosis over R knee Neurologic:AAOx3 Laboratory Interpretation: Chem: notable for hyponatremia, elevated BUN, otherwise stable Cbc: notable for anemia, platelets 26, otherwise stable. 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 Delirium remains likely due to ESLD. Infectious katarina p negative to date with negative UA and CXR, BCx NGTD. Continue lactulose. Consultants - He patology following- Currently status 7 -- lactulose titration 30 grams TID with PRN additional goal of 3-5 BM daily, rifaximin - Anesthesia eval while inpatient for potential liver transplant # Spur cell anemia # Iron overload Goal hemoglobin of 7. No evidence of bleeding. HDS. - Continue home [id number] mg TID. - Zinc 50 mg PO daily. - Active type and screen. # Red urine Likely due to iron chelator. -ctm # Non-anion gap metabolic acidosis Bicarb 17->19->21 today. Urine studies show evidence of RTA. Nephrology consulted "urine an ion gap performed shows + 16, which is suggestive of type 1 or 2 RTA. This was performed in the setting of recovering acute kidney injury and most likely represents poor function duri ng recovery. The significance of this is marginal in setting of improving renal function", Recommend no interventions at this time. - ctm #Paroxysmal Supraventricular Tachycardia May be related to myocardial iron deposition per cardiology. Should he have more episodes o f SVT will consider increasing beta-orion and if unable to manage with that would consider digoxin loading. Currently no recurrent episodes on BB. Hepatology recommend anesthesiology consult for operative evaluation given h/o SVT. - Rate control: metoprolol tartrate 6.25mg BID - Rhythm control: 10g amio load complete 07/26. Maintenance dose 200 mg PO daily - Electrolytes: K > 4, Mg > 2 - Monitoring: telemetry # KAR with concern for HRS Cr remains stable. - Midodrine 10 mg TID -Discontinuedoctreotide per hepatology recs # Nutrition Per hepatology, poor nutrition is barrier to transplant,continue to recommend DHT. - will attempt DHT today. If nursing unable, will look into possible placement with radiolo gy. - Nutrition following, appreciate recs. VitD 28844 U qweekly + multivitamin without iron st arted 07/31. 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 - NPH 22 U BID - Lispro 10 U TID WM - Mild SSI - simulation educator to see him as DM is new diagnosis as of this admission #Hyperthyroidism, mild - Unlikely to be driving tachycardia - Outpatient follow up Bowel Regimen: Lactulose Diet: Mechanical soft, diabeteic DVT PPx: none Monitoring: tele for SVT Sleep: Melatonin PRN Surrogate Decision Maker Primary Surrogate Decision Maker Doreen norwood [phone] Secondary Surrogate Decision Maker Priyanka Jordan Braden Internal Medicine PGY-1 Associated attestation - Rex So MD - 07/31/2019 6:33 PM PDTEvaluated the patient a t bedside with the medicine team. He agreed to have Dobbhoff tube placement after some enco uragement and counseling. He promised to improve his nutritional status by consuming more b y mouth. He reports feeling little more energy and less confusion now. Serum bicarb has im proved. 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 -We will optimize nutrition in preparation for liver transplant and consult anesthesia team for preoperative assessment. I personally evaluated the patient, performed the tamez elements of the physical examination, and personally formulated the assessment and plan with the resident. I have reviewed the [facility] documentation and I agree with the findings, assessment, advice, orders and plan as th ey are documented with changes documented as above in my note. Rex So MD professor of psychology, Division of hospital medicine, Internal Medicine, [facility], MD Amy - 07/30/2019 8:47 PM PDTFormatting of this note m ight be different from the original. Gen Med 3 Service Progress Note 24 Hour Events: - no acute events overnight Subjective: Seen at bedside this morning. No complaints today. Decline DHT placement today. Will consid er tomorrow AM. 8-system ROS otherwise negative. Nursing and consulting service notes reviewed. Objective: Physical Examination: Vitals interpretation - stable Last 24 hour min/max Temp: 36.5 C (97.7 F) Temp Min: 36.5 C (97.7 F) Max: 37 C (98.6 F) Pulse: 64 Pulse Min: 61 Max: 70 Resp: 18 Resp Min: 15 Max: 18 BP: 110/59 BP Min: 90/68 Max: 122/59 SpO2: 100 % SpO2 Min: 99 % Max: 100 % Body mass index is 25.1 kg/m. Intake/Output Summary (Last 24 hours) at 07/29/2019 1229 Last data filed at 07/29/2019 1058 Gross per 24 hour Intake 830 ml Output 950 ml Net -120 ml Medications reviewed. General Appearance:Jaundiced, lying in bed, comfortable, NAD HEENT:Scleral icterus, EOMI, MMM Respiratory:CTAB, no wheeze or crackles Cardiovascular: RRR, 2/6 holosystolic murmur loudest at left sternal border Gastrointestinal:Obese, soft, non-tender, no rebound, no guarding Musculoskeletal:1+ pitting edema to mid delgadillo Skin:Jaundiced. Large ecchymosis over R knee Neurologic:AAOx2 (unable to state year) Laboratory Interpretation: CBC with diff last 72 hours (or 3 results) Recent Labs 07/28/19 22507/29/19 0537 07/30/19 05 WBC 5.85 5.54 3.94 HB 8.5* 8.0* 6.8* HCT 24.5* 23.9* 19.9* PLT 31* 28* 27* NEUTROPERC 72.5* -- 66.4 LYMPHPERC 19.0 -- 21.7 MONOPERC 5.8 -- 8.5 BASOPERC 0.3 -- 0.5 EOSPERC 1.9 -- 2.7 Chemistries: Last 72 Hours (or 3 results): Recent Labs 07/28/19 0338 07/29/19 0537 07/30/19 0523 07/30/19 0830 07/30/19 1208 07/30/19 1702 NA 140 -- 134* -- 131* -- -- -- K 4.6 -- 4.6 -- 4.3 -- -- -- CL 110* -- 107 -- 104 -- -- -- BICARB 17* -- 17* -- 19* -- -- -- BUN 37* -- 37* -- 39* -- -- -- EGFRAFRICAN >60 -- >60 -- >60 -- -- -- CR 1.09 -- 1.04 -- 1.05 -- -- -- GLU 238* < > 210* < > 222* 218* 233* 225* CA 8.6 -- 8.8 -- 8.7 -- -- -- < > = values in this interval not displayed. 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 Had 1 BMs overnight. Delirium remains Likely due to ESLD. Infectious workup negative to date with negative UA and CXR, BCx NGTD. Cont.la ctulose. Consultants - Hepatology following- Currently status 7 remains the same status t [place]. Following transplant status discussion today. -- lactulose titration 30 grams TID with PRN additional goal of 3-5 BM daily, rifaximin # Spur cell anemia # Iron overload Goal hemoglobin of 7. No evidence of bleeding. HDS. Transfuse 1 unit today for hbg of 6.8. - Continue home [id number] mg TID. - Zinc 50 mg PO daily. - Active type and screen. # Red urine Likely due to iron chelator. -ctm # Non-anion gap metabolic acidosis Bicarb 17->19 today. Urine studies show evidence of RTA. 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 This was performed in the setting of recovering acute kidney injury and most likely represents poor function during r ecovery. The significance of this is marginal in setting of improving renal function", Rec ommend no interventions at this time. - ctm #Paroxysmal Supraventricular Tachycardia May be related to myocardial iron deposition per cardiology. Should he have more episodes o f SVT will consider increasing beta-orion and if unable to manage with that would consider digoxin loading. Currently no recurrent episodes on BB. Hepatology recommend anesthesiology consult for operative evaluation given h/o SVT. - Rate control: metoprolol tartrate 6.25mg BID - Rhythm control: 10g amio load complete 07/26. Maintenance dose 200 mg PO daily - Electrolytes: K > 4, Mg > 2 - Monitoring: telemetry - Consult anesthesiology for # KAR with concern for HRS Cr remains stable. - Midodrine 10 mg TID -Discontinuedoctreotide per hepatology recs # Nutrition Per hepatology, poor nutrition is barrier to transplant,continue to recommend DHT. 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 - NPH 22 U BID - Lispro 10 U TID WM - Mild SSI - simulation educator to see him as DM is new diagnosis as of this admission #Hyperthyroidism, mild - Unlikely to be driving tachycardia - Outpatient follow up Bowel Regimen: Lactulose Diet: Mechanical soft, diabeteic DVT PPx: none Monitoring: tele for SVT Sleep: Melatonin PRN Surrogate Decision Maker Primary Surrogate Decision Maker Doreen norwood [phone] Secondary Surrogate Decision Maker Priyanka Rivera mother Amy Singh MD Internal Medicine PGY-2 Associated attestation - Des Gamez MD - 07/31/2019 10:31 AM PDTA resident assiste d with documenting this service. I saw the patient and reviewed and verified all information documented by the resident. I agree with the residents documentation and have documented an y additions or exceptions. 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 Ence phalopathy continues to wax and wane somewhat but overall stable to improved today. Will con tinue to encourage/facilitate good PO intake--unfortunately, it appears that nutrition is a current significant barrier to being actively listed for transplant again and will have to p gonzalo DHT tomorrow to see if we can boost his intake before next transplant meeting in 7 day s. Has mild metabolic acidosis without appropriate respiratory compensation--may have compon ent of bicarb loss in stool and urine anion gap suggestive poor urinary acidification (appre ciate renal confirmation of this). His urine has been appearing red for days, but without dr amatically elevated RBCs on micro--so appears his coloration primarily due to his iron hung ting agent. Has been hyperglycemic and so with likely addition of tube feeds in coming days we should looks closely at increased insulin dosing. Danial Gamez MD Medical Teaching and Clinical Hospitalist Services [facility] Pager [phone] I spent 36 minutes taking care of this patient while on the medical unit coordinating care and counseling regarding the above medical problems. Henrique Chapa MD - 07/30/2019 8:28 AM PDTFormatting of this note might be different fro m the original. Hepatology Inpatient Consult Follow-Up Note *Addendum After discussion in selection conference, patient will remain status 7 given his poor nutri tional status and multiple several risk factors for post-LT heart failure, including ETOH as etiology of heart failure, depressed EF 55-60% (low for hyperdynamics of cirrhosis patient) , and iron deposition in myocardium. Would recommend anesthesia consult for further risk ass essment from a cardiopulmonary perspective, were the patient to undergo a transplant surgery . Also discussed with the primary team and relayed that supplement enteral nutrition would b e paramount and that his poor nutrition was a significant concern from a transplant perspect prudence. Name: Doug Lawson Blood type: A+ Status: 7 Biological MELD 32 (07/30) A/P: Mr. Lawson is a 54 yo man with spur cell anemia requiring chronic transfusions c/b iron over load, EtOH cirrhosis c/b ascites with MELD34 (07/27), Blood type A+, listed for liver trans plant,transferred for AMS and falls found to have hyperglycemia and renal insufficiency, h ospital course complicated by SVT requiring ICU transfer and amiodarone drip. Work-up thus f ar has been unremarkable, including a knee aspirate demonstrating findings most consistent w ith hemarthrosis.He'sdemonstrated noovert GI bleeding;so endoscopic work-up for th is is unmerited in the setting of known spur cell anemia. Transplant infectious disease carver salso weighed in,with no e/o infection/sepsis as etiology of SVT/afib. In regard to his tachyarrythmia, his cardiac function appears to be compensated and is not a contraindication for transplantper se. Has been titrated off amiodarone GTT and downgraded to medicine ester ors. Tachyarrythmiacurrently controlled with PO amiodarone and metoprolol and per discussi ons withEP attending Dr. Mcintyre, hisSVTs should not preclude pt from transplant and can be managed in the intra/clara-operative period. If difficult to control despite amio/metop, t heycould also offer ablative therapies prior to transplant. Patient has several risk factors for post-LT heart failure though, including ETOH as etiolo gy of heart failure, depressed EF 55-60% (low for hyperdynamics of cirrhosis patient), and i tom deposition in myocardium. Other concerns including his worsening functional and nutritio nal status; currently not tolerating PO. -recommendDHT for supplemental nutrition given minimal PO intake; recommend daily calor ie count -continue PT/OT to improve functional status - continue rifaximin/lactulose for 3-5 BM's daily We will continue to follow along with you. Please page with any questions or concerns. This patient was staffed with , who agrees with above. Henrique Chapa MD Gastroenterology & Hepatology Fellow Pager:[phone] IE/S: Feeling more alert this morning; denies confusion. O: Medications: Medications Scheduled Medication Dose/Rate, Route, Frequency Last Action amiodarone (CORDARONE) tablet 200 mg 200 mg, oral, DAILY Given: 07/29 803 deferiprone tab 2,000 mg 2,000 mg, oral, TID Given: 07/29 2132 insulin lispro (HUMALOG) injection 1-16 Units 1 Units, subQ, QID Given: 07/29 2132 insulin lispro (HUMALOG) injection 10 Units 10 Units, subQ, TID W/MEALS Given: 07/29 1835 insulin NPH (HUMULIN N) injection 20 Units 20 Units, subQ, BEFORE BREAKFAST AND HS Given: 07/29 2133 lactulose (ENULAC) 30 g 30 g, oral, TID Given: 07/29 2132 metoprolol tartrate (LOPRESSOR) tablet 6.25 mg 6.25 mg, oral, BID Given: 07/29 2131 midodrine (PROAMITINE) tablet 10 mg 10 mg, oral, TID Given: 07/29 2132 rifAXIMin (XIFAXAN) tablet 550 mg 550 mg, oral, BID Given: 07/29 2131 zinc sulfate (ORAZINC, ZINC-220) capsule 50 mg elemental 50 mg elemental, oral, DAILY Give n: 07/29 817 PRN Medication Dose/Rate, Route, Frequency Last Action dextrose 50 % in water IV 25 mL 25 mL, IV, PRN Ordered diclofenac (VOLTAREN) 1 % gel 4 g 4 g, top, QID PRN Given: 07/23 931 glucagon (GLUCAGEN) injection 1 mg 1 mg, IM, PRN Ordered glucose chewable tablet 16 g 16 g, oral, PRN Ordered lactulose (ENULAC) 10 g 10 g, oral, Q2H PRN Given: 07/28 401 melatonin tablet 3 mg 3 mg, oral, HS PRN Ordered polyethylene glycol (MIRALAX) packet 8.5 g 8.5 g, oral, DAILY PRN Ordered Vitals: Last 24 hour min/max Temp: 36.8 C (98.2 F) Temp Min: 36.7 C (98.1 F) Max: 37 C (98.6 F) Pulse: 65 Pulse Min: 64 Max: 70 Resp: 16 Resp Min: 15 Max: 18 BP: 122/59 BP Min: 90/68 Max: 122/59 SpO2: 100 % SpO2 Min: 99 % Max: 100 % Body mass index is 25.1 kg/m. Exam: Gen:NAD CV:RRR+ holosystolic murmur Abd: Soft, NT,tympanic to percussion and moderately distended Labs: Recent Labs 07/28/19224907/29/19 0507/30/19 05 WBC 5.85 5.54 3.94 HB 8.5* 8.0* 6.8* HCT 24.5* 23.9* 19.9* PLT 31* 28* 27* NEUTROPERC 72.5* -- 66.4 LYMPHPERC 19.0 -- 21.7 MONOPERC 5.8 -- 8.5 BASOPERC 0.3 -- 0.5 EOSPERC 1.9 -- 2.7 Recent Labs 07/28/19 0338 07/29/19 0537 07/29/19 1825 07/29/19 2114 07/30/19 0523 NA 140 -- 134* -- -- -- 131* K 4.6 -- 4.6 -- -- -- 4.3 CL 110* -- 107 -- -- -- 104 BICARB 17* -- 17* -- -- -- 19* BUN 37* -- 37* -- -- -- 39* CR 1.09 -- 1.04 -- -- -- 1.05 GLU 238* < > 210* < > 251* 223* 222* CA 8.6 -- 8.8 -- -- -- 8.7 AST 59* -- 85* -- -- -- 68* ALT 32 -- 44 -- -- -- 39 AP 102 -- 119 -- -- -- 123 TBILI 13.6* -- 12.8* -- -- -- 10.5* TP 6.0* -- 7.0 -- -- -- 6.3* ALB 3.0* -- 3.2* -- -- -- 2.9* ANIONGAP 13* -- 10 -- -- -- 8 ANIONALBCOR 15* -- 12* -- -- -- 10 < > = values in this interval not displayed. Labs: Lab Results Component Value Date MG 1.5 07/26/2019 Lab Results Component Value Date INRPT 3.50 (H) 07/30/2019 No results found for: FK506 07/17/2019 US with Dopplers IMPRESSION: Cirrhotic liver morphology with findings of portal hypertension. Unremarkable Doppler ultrasound without evidence of venous thrombosis. Cholelithiasis without evidence of cholecystitis. MELD-Na score: 32 at 07/30/2019 5:23 AM MELD score: 30 at 07/30/2019 5:23 AM Calculated from: Serum Creatinine: 1.05 mg/dL at 07/30/2019 5:23 AM Serum Sodium: 131 mmol/L at 07/30/2019 5:23 AM Total Bilirubin: 10.5 mg/dL at 07/30/2019 5:23 AM INR(ratio): 3.50 INR at 07/30/2019 5:23 AM Age: 54 years Associated attestation - Laurita Pinon MD - 07/31/2019 8:53 AM PDTHepatology Atten ding I saw and examined this patient with 07-30-19, and agree with the findings, assessment, and plan as described in the noted from Dr. Chapa, which corresponds to the date when I persona lly saw this patient. Briefly, we discussed his case at liver transplant selection conference today, and made the decision to continue with transplantation in this patient. We are still worried about risks from frailty/malnutrition as well as perioperative management of his heart. Thus, in prepar ing him for potential transplant it is tamez that we (1) get a DHT in him for better nutrition , along with daily PT, and (2) get our transplant anesthesiologists to stop by for a pre-ope rative risk management consultation to help minimize operative risk during transplant. I spent a total of 35 minutes was spent in the care and managment of this patient, of which greater than 50% was spent on counseling and/or coordination of care for the conditions of cirrhosis, iron overload, frailty, malnutrition. Amaris Medina LCSW - 07/29/2019 2:27 PM PDTSocial Work Note: LEARNING ENGINEER met with pt at bedside to check-in and offer support. No family was at bedside. Pt den ied any needs or concerns. He states "I wish I just had more time, about 12 hrs more". Write r asked pt to clarify and pt states he wish he had more time to help prepare for this hospit alization. His mother and sister had to go back to his house and pack his belongings to move him. He states his mother and sister will be back this weekend. LEARNING ENGINEER called his sister Doreen to check in and offer support. Doreen acknowledged it has been an emotional roller coaster with pt on the liver transplant list and then off. Doreen seemed to have a good understanding of the situation and is looking forward to hearing from the tea m tomorrow after the liver transplant committee meeting re: pt's transplant status. Doreen mckee are she and their mother went and packed pt up and moved him out of his house. They are prep ared to either stay in [place] following transplant, or if pt is not a transplant candidate , they are hoping to move him to [place] to be close to family. Encouraged Doreen to reach out f or support as needed. LEARNING ENGINEER will continue to follow. Please page with any psychosocial needs or concerns. WINIFRED Mckenzie, LEARNING ENGINEER Clinical Transplant [facility] Pager: [phone] signed by Amaris Medina LCSW at 07/29/2019 2:46 PM Julian Mo MD - 07/29/2019 12:27 PM PDT Gen Med 3 Service Progress Note 24 Hour Events: - no acute events overnight Subjective: Seen at bedside this morning. Encephalopathy stable from yesterday, continues to wax and wa ne. AAOx2 today, still with great sense of humor and personality. Per nursing, ate majority of his breakfast this morning with minimal assistance. Denies any new concerns or complaints . No chest pain or palpitations. No worsening knee pain. 8-system ROS otherwise negative. Nursing and consulting service notes reviewed. Objective: Physical Examination: Vitals interpretation - stable Last 24 hour min/max Temp: 36.4 C (97.5 F) Temp Min: 36.4 C (97.5 F) Max: 36.7 C (98.1 F) Pulse: 64 Pulse Min: 57 Max: 70 Resp: 16 Resp Min: 16 Max: 20 BP: 105/57 BP Min: 98/48 Max: 120/63 SpO2: 99 % SpO2 Min: 99 % Max: 100 % Body mass index is 25.1 kg/m. Intake/Output Summary (Last 24 hours) at 07/29/2019 1229 Last data filed at 07/29/2019 1058 Gross per 24 hour Intake 830 ml Output 950 ml Net -120 ml Medications reviewed. General Appearance:Jaundiced, lying in bed, comfortable, NAD HEENT:Scleral icterus, EOMI, MMM Respiratory:CTAB, no wheeze or crackles Cardiovascular: RRR, 2/6 holosystolic murmur loudest at left sternal border Gastrointestinal:Obese, soft, non-tender, no rebound, no guarding Musculoskeletal:1+ pitting edema to mid delgadillo Skin:Jaundiced. Large ecchymosis over R knee Neurologic:AAOx2 (unable to state year). Grossly non focal. Psychiatric:Cooperative. Laboratory Interpretation: - chem: Bicarb 17, stable from yesterday. Sodium 134, down from 140 y/d. 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 Should he have more episodes o f SVT will consider increasing beta-orion and if unable to manage with that would consider digoxin loading. - Rate control: metoprolol tartrate 6.25mg BID - Rhythm control: 10g amio load complete 07/26. Maintenance dose 200 mg PO daily - Electrolytes: K > 4, Mg > 2 - Monitoring: telemetry # Alcoholic Cirrhosis c/b HE, ascites, TCP Encephalopathy slightly improved today, AAOx2. Had 2 BMs overnight. PO intake improved with switch to mechanical soft diet and help of MILK DRIVER feeding. Overall mental status possibly 2/2 underlying delerium, decreased PO and over-administration of lactulose causing many BMs over night resulting in dehydration. Infectious workup negative to date with negative UA and CXR, BCx NGTD. - 07/26 BCx NGTD. -Hepatic Encephalopathy - lactulose titration 30 grams TID with PRN additional goal of 3-5 BM daily, rifaximin - Consultants - Hepatology following- Currently status 7 # Red urine Multiple UA with microscopic hematuria. Patient continues to have dark red urine. Likely et iology combination of lactulose (colored red) and bilirubin. Microscopic hematuria likely 2/ 2 known nephrolithiasis. # Non-anion gap metabolic acidosis Bicarb stable at 17. VBG y/d with uncompensated metabolic acidosis. Possibly secondary to increased BMs and GI losses of bicarb. Worry about ability to compensate given ESLD - Monitor BMPs - Follow up urine studies, calculate urine gap. # KAR with concern for HRS Patient presented with KAR and was resuscitated with the HRS cocktail with improvement in h is kidney function. His albumin is currently adequate, not requiring repletion. - Midodrine 10 mg TID -Discontinuedoctreotide per hepatology recs # Nutrition Patient with decreased PO in setting of ESLD and HE. Multiple attempts at DHT placement uns uccessful over past several days, however patient would likely need physical restraints to k eep it in place if it were to be successfully placed. Have ordered for MILK DRIVER to help with feed ing. Mechanical soft diet for easier swallowing. Seems to be helping with amount of each farnaz l consumed. CORPORATE TRAVEL COUNSELOR eval requested for today. - f/u CORPORATE TRAVEL COUNSELOR recs # Spur cell anemia # Iron overload Goal hemoglobin of 7. UA with microscopic hematuria. No bloody stools or melena. R knee he marthrosis stable on exam. - Continue home [id number] mg TID. - Zinc 50 mg PO daily. - Active type and screen. 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 - NPH 18 U BID - Lispro to 10 U TID WM - Mild SSI - simulation educator to see him as DM is new diagnosis as of this admission #Hyperthyroidism, mild - Unlikely to be driving tachycardia - Outpatient follow up Bowel Regimen: Lactulose Diet: Mechanical soft, diabeteic DVT PPx: none given hemolytic anemia Monitoring: tele for SVT Mobility: up with assist Sleep: Melatonin PRN Surrogate Decision Maker Primary Surrogate Decision Maker Doreen norwood [phone] Secondary Surrogate Decision Maker Priyanka Rivera mother Julian Feliciano MD Internal Medicine PGY1 Pager [phone] Associated attestation - Des Gamez MD - 07/29/2019 4:56 PM PDTA resident trisha kevin with documenting this service. I saw the patient and reviewed and verified all information documented by the resident. I agree with the residents documentation and have documented an y additions or exceptions. 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 Ence phalopathy continues to wax and wane somewhat but overall stable. Will continue to encourage /facilitate good PO intake and per nursing was able to feed himself this morning after romie ng cut up his food.--will hold on further DHT attempts as it appears would likely require re straints to avoid him pulling it out. Has mild metabolic acidosis without appropriate respir atory compensation--may have component of bicarb loss in stool and urine anion gap suggestiv e of RTA. Given his cirrhosis, hesitant to provide a sodium bicarb load, but may need to con medical technologist hematology this if he has further worsening in his acid base status. His urine has been appearing red for days, but without dramatically elevated RBCs on micro--so appears his coloration ma y be primarily due to pigment (dye from lactulose, combing with bili?). Danial Gamez MD Medical Teaching and Clinical Hospitalist Services [facility] Pager [phone] I spent 38 minutes taking care of this patient while on the medical unit coordinating care and counseling regarding the above medical problems. Henrique Chapa MD - 07/29/2019 12:05 PM PDTFormatting of this note might be different fro m the original. Hepatology Inpatient Consult Follow-Up Note Name: Doug Lawson Blood type: A+ Status: 7 Biological MELD 31 (07/29) A/P: Mr. Lawson is a 54 yo man with spur cell anemia requiring chronic transfusions c/b iron over load, EtOH cirrhosis c/b ascites with MELD34 (07/27), Blood type A+, listed for liver trans plant,transferred for AMS and falls found to have hyperglycemia and renal insufficiency, h ospital course complicated by SVT requiring ICU transfer and amiodarone drip. Work-up thus f ar has been unremarkable, including a knee aspirate demonstrating findings most consistent w ith hemarthrosis.He'sdemonstrated noovert GI bleeding;so endoscopic work-up for th is is unmerited in the setting of known spur cell anemia. Transplant infectious disease carver salso weighed in,with no e/o infection/sepsis as etiology of SVT/afib. In regard to his tachyarrythmia, his cardiac function appears to be compensated and is not a contraindication for transplantper se. Has been titrated off amiodarone GTT and downgraded to medicine ester ors. Tachyarrythmiacurrently controlled with PO amiodarone and metoprolol and per discussi ons withEP attending Dr. Mcintyre, hisSVTs should not preclude pt from transplant and can be managed in the intra/clara-operative period. If difficult to control despite amio/metop, t heycould also offer ablative therapies prior to transplant. Patient has several risk factors for post-LT heart failure though, including ETOH as etiolo gy of heart failure, depressed EF 55-60% (low for hyperdynamics of cirrhosis patient), and i tom deposition in myocardium. Other concerns including his worsening functional and nutritio nal status; currently not tolerating PO. -recommendDHT for supplemental nutrition given minimal PO intake; recommend daily calor ie count -continue PT/OT to improve functional status - continue rifaximin/lactulose for 3-5 BM's daily We will continue to follow along with you. Please page with any questions or concerns. This patient was staffed with , who agrees with above. Henrique Chapa MD Gastroenterology & Hepatology Fellow Pager:[phone] IE/S: Does not have DHT; has been attempting to get nutrition orally. O: Medications: Medications Scheduled Medication Dose/Rate, Route, Frequency Last Action amiodarone (CORDARONE) tablet 200 mg 200 mg, oral, DAILY Given: 07/29 803 deferiprone tab 2,000 mg 2,000 mg, oral, TID Given: 07/29 803 insulin lispro (HUMALOG) injection 1-16 Units 2 Units, subQ, QID Given: 07/29 936 insulin lispro (HUMALOG) injection 10 Units 5 Units, subQ, TID W/MEALS Given: 07/29 936 insulin NPH (HUMULIN N) injection 18 Units 18 Units, subQ, BEFORE BREAKFAST AND HS Given: 07/29 936 lactulose (ENULAC) 30 g 30 g, oral, TID Given: 07/29 816 metoprolol tartrate (LOPRESSOR) tablet 6.25 mg 6.25 mg, oral, BID Given: 07/29 1136 midodrine (PROAMITINE) tablet 10 mg 10 mg, oral, TID Given: 07/29 802 rifAXIMin (XIFAXAN) tablet 550 mg 550 mg, oral, BID Given: 07/29 803 zinc sulfate (ORAZINC, ZINC-220) capsule 50 mg elemental 50 mg elemental, oral, DAILY Give n: 07/29 817 PRN Medication Dose/Rate, Route, Frequency Last Action dextrose 50 % in water IV 25 mL 25 mL, IV, PRN Ordered diclofenac (VOLTAREN) 1 % gel 4 g 4 g, top, QID PRN Given: 07/23 931 glucagon (GLUCAGEN) injection 1 mg 1 mg, IM, PRN Ordered glucose chewable tablet 16 g 16 g, oral, PRN Ordered lactulose (ENULAC) 10 g 10 g, oral, Q2H PRN Given: 07/28 401 melatonin tablet 3 mg 3 mg, oral, HS PRN Ordered polyethylene glycol (MIRALAX) packet 8.5 g 8.5 g, oral, DAILY PRN Ordered Vitals: Last 24 hour min/max Temp: 36.4 C (97.5 F) Temp Min: 36.4 C (97.5 F) Max: 36.7 C (98.1 F) Pulse: 64 Pulse Min: 57 Max: 70 Resp: 16 Resp Min: 16 Max: 20 BP: 105/57 BP Min: 98/48 Max: 120/63 SpO2: 99 % SpO2 Min: 99 % Max: 100 % Body mass index is 25.1 kg/m. Exam: Gen:NAD CV: RRR + holosystolic murmur Abd: Soft, NT,tympanic to percussion and moderately distended Ext:R knee ecchymosesimproved,b/l LE edema Labs: Recent Labs 07/28/19 0338 07/28/19 2250 07/29/19 0537 WBC 3.81 5.85 5.54 HB 7.5* 8.5* 8.0* HCT 21.7* 24.5* 23.9* PLT 24* 31* 28* NEUTROPERC -- 72.5* -- LYMPHPERC -- 19.0 -- MONOPERC -- 5.8 -- BASOPERC -- 0.3 -- EOSPERC -- 1.9 -- Recent Labs 07/27/19 0329 07/28/19 0338 07/29/19 0050 07/29/19 0537 07/29/19 0924 NA 138 -- 140 -- -- 134* -- K 4.2 -- 4.6 -- -- 4.6 -- CL 110* -- 110* -- -- 107 -- BICARB 20* -- 17* -- -- 17* -- BUN 35* -- 37* -- -- 37* -- CR 1.08 -- 1.09 -- -- 1.04 -- GLU 232* < > 238* < > 199* 210* 229* CA 9.1 -- 8.6 -- -- 8.8 -- AST 64* -- 59* -- -- 85* -- ALT 32 -- 32 -- -- 44 -- AP 98 -- 102 -- -- 119 -- TBILI 14.3* -- 13.6* -- -- 12.8* -- TP 6.2* -- 6.0* -- -- 7.0 -- ALB 3.0* -- 3.0* -- -- 3.2* -- ANIONGAP 8 -- 13* -- -- 10 -- ANIONALBCOR 10 -- 15* -- -- 12* -- < > = values in this interval not displayed. Labs: Lab Results Component Value Date MG 1.5 07/26/2019 Lab Results Component Value Date INRPT 3.54 (H) 07/29/2019 No results found for: FK506 07/17/2019 US with Dopplers IMPRESSION: Cirrhotic liver morphology with findings of portal hypertension. Unremarkable Doppler ultrasound without evidence of venous thrombosis. Cholelithiasis without evidence of cholecystitis. MELD-Na score: 31 at 07/29/2019 5:37 AM MELD score: 30 at 07/29/2019 5:37 AM Calculated from: Serum Creatinine: 1.04 mg/dL at 07/29/2019 5:37 AM Serum Sodium: 134 mmol/L at 07/29/2019 5:37 AM Total Bilirubin: 12.8 mg/dL at 07/29/2019 5:37 AM INR(ratio): 3.54 INR at 07/29/2019 5:37 AM Age: 54 years Associated attestation - Laurita Pinon MD - 07/29/2019 9:07 PM PDTHepatology Atten ding I saw and examined this patient with Dr. Chapa, and agree with the findings, assessment, an d plan as described in the noted from 07/29/19, which corresponds to the date when I personautumn cordovay saw this patient. I spent a total of 25 minutes was spent in the care and managment of this patient, of which greater than 50% was spent on counseling and/or coordination of care for the conditions of cirrhosis from alcohol, frailty, hepatic encephalopathy. Julian Feliciano MD - 07/28/2019 8:36 AM PDT Gen Med 3 Service Progress Note 24 Hour Events: - no acute events overnight Subjective: Seen at bedside this morning. Encephalopathy stable from yesterday, continues to wax and wa ne. AAOx2 today, but noticably more awake and personable than days prior. States he ate dinn er last night and breakfast this morning with help from MILK DRIVER for feeding. Denies any new conc erns or complaints. No chest pain or palpitations. No fever following transfusion of 1 U pRB C yesterday afternoon. 8-system ROS otherwise negative. Nursing and consulting service notes reviewed. Objective: Physical Examination: Vitals interpretation - stable Last 24 hour min/max Temp: 36.8 C (98.2 F) Temp Min: 36.2 C (97.2 F) Max: 36.8 C (98.2 F) Pulse: 65 Pulse Min: 60 Max: 65 Resp: 16 Resp Min: 14 Max: 18 BP: 113/57 BP Min: 104/50 Max: 121/69 SpO2: 100 % SpO2 Min: 100 % Max: 100 % Body mass index is 25.1 kg/m. Intake/Output Summary (Last 24 hours) at 07/28/2019 0841 Last data filed at 07/28/2019 0429 Gross per 24 hour Intake 3583 ml Output 1000 ml Net 2583 ml Medications reviewed. General Appearance:Jaundiced, lying in bed, comfortable, NAD HEENT:Scleral icterus, EOMI, MMM Respiratory:CTAB, no wheeze or crackles Cardiovascular: RRR, 2/6 holosystolic murmur loudest at left sternal border Gastrointestinal:Obese, soft, non-tender, no rebound, no guarding Musculoskeletal:1+ pitting edema to mid delgadillo Skin:Jaundiced. Large ecchymosis over R knee Neurologic:AAOx2 (unable to state year). Grossly non focal. Psychiatric:Cooperative. Laboratory Interpretation: - chem: stable - cbc: notable for anemia with appropriate response to 1U rbc transfusion y/d, thrombocytop enia, INR 3.84, otherwise stable - micro: BCx 10/6 NGTD Imaging Interpretation: CXR / negative for signs of infection. 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 Should he have more episodes o f SVT will consider increasing beta-orion and if unable to manage with that would consider digoxin loading. - Rate control: metoprolol tartrate 6.25mg BID - Rhythm control: 10g amio load complete 07/26. Maintenance dose 200 mg PO daily - Electrolytes: K > 4, Mg > 2 - Monitoring: telemetry # Alcoholic Cirrhosis c/b HE, ascites, TCP Encephalopathy slightly improved today, AAOx2. Had 2 BMs overnight. PO intake improved with switch to mechanical soft diet and help of MILK DRIVER feeding. Overall mental status possibly 2/2 underlying delerium, decreased PO and over-administration of lactulose causing many BMs over night resulting in dehydration. Infectious workup negative to date with negative UA and CXR, BCx NGTD. - 07/26 BCx NGTD. -Hepatic Encephalopathy - lactulose titration 30 grams TID with PRN additional goal of 3-5 BM daily, rifaximin - Consultants - Hepatology following- Currently status 7 due to SVTs # Hyperchloremic, non-anion gap, metabolic acidosis Gradual daily decline in serum bicarb, from high 20s to 17 today. Possibly secondary to inc reased BMs and GI losses of bicarb. Worry about ability to compensate given ESLD - VBG to evaluate - Monitor BMPs # KAR with concern for HRS Patient presented with KAR and was resuscitated with the HRS cocktail with improvement in h is kidney function. His albumin is currently adequate, not requiring repletion. - Midodrine 10 mg TID -Discontinuedoctreotide per hepatology recs # Nutrition Patient with decreased PO in setting of ESLD and HE. Multiple attempts at DHT placement uns uccessful over past several days, however patient would likely need physical restraints to k eep it in place if it were to be successfully placed. Have ordered for MILK DRIVER to help with feed ing. Mechanical soft diet for easier swallowing. Seems to be helping with amount of each farnaz l consumed. CORPORATE TRAVEL COUNSELOR eval requested for today. - f/u CORPORATE TRAVEL COUNSELOR recs # Spur cell anemia # Iron overload Goal hemoglobin of 7. Transfused 1 U pRBC 07/27 with appropriate rise in Hgb 7.2. UA with 5 RBCs. No bloody stools or melena. R knee hemarthrosis stable on exam. - Continue home [id number] mg TID. - Zinc 50 mg PO daily. - UA with 5 RBCs. On chart review, has multiple similar prior UAs. - Active type and screen. 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 - NPH 18 U BID - Lispro to 10 U TID WM - Mild SSI - simulation educator to see him as DM is new diagnosis as of this admission #Hyperthyroidism, mild - Unlikely to be driving tachycardia - Outpatient follow up Bowel Regimen: Lactulose Diet: Mechanical soft, diabeteic DVT PPx: none given hemolytic anemia Monitoring: tele for SVT Mobility: up with assist Sleep: Melatonin PRN Surrogate Decision Maker Primary Surrogate Decision Maker Doreen norwood [phone] Secondary Surrogate Decision Maker Priyanka Rivera mother Julian Feliciano MD Internal Medicine PGY1 Pager [phone] Associated attestation - Des Gamez MD - 07/28/2019 5:32 PM PDTA resident trisha kevin with documenting this service. I saw the patient and reviewed and verified all information documented by the resident. I agree with the residents documentation and have documented an y additions or exceptions. 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 Ence phalopathy continues to wax and wane somewhat but overall stable. Will continue to encourage /facilitate good PO intake--will hold on further DHT attempts as it appears would likely req uire restraints to avoid him pulling it out. Has mild metabolic acidosis without appropriate respiratory compensation (etiology lactulose induced GI bicarb losses, ?RTA)--overall, izzy rity of his liver disease would likely make him poorly tolerant of further worsening acidosi s. Do not see a current corrective therapy that would be likely to benefit at him at this ti me and will continue to monitor acidosis closely. Danial Gamez MD Medical Teaching and Clinical Hospitalist Services [facility] Pager [phone] I spent 40 minutes taking care of this patient while on the medical unit coordinating care and counseling regarding the above medical problems. Henrique Chapa MD - 07/28/2019 8:08 AM PDTFormatting of this note might be different fro m the original. Hepatology Inpatient Consult Follow-Up Note Name: Doug Lawson Blood type: A+ Status: 7 Biological MELD 32 (07/28) A/P: Mr. Lawson is a 54 yo man with spur cell anemia requiring chronic transfusions c/b iron over load, EtOH cirrhosis c/b ascites with MELD 34 (07/27), Blood type A+, listed for liver transp lant,transferred for AMS and falls found to have hyperglycemia and renal insufficiency, ho spital course complicated by SVT requiring ICU transfer and amiodarone drip. Work-up thus fa r has been unremarkable, including a knee aspirate demonstrating findings most consistent wi th hemarthrosis.He'sdemonstrated noovert GI bleeding;so endoscopic work-up for thi s is unmerited in the setting of known spur cell anemia. Transplant infectious disease has also weighed in,with no e/o infection/sepsis as etiology of SVT/afib. In regard to his t achyarrythmia, his cardiac function appears to be compensated and is not a contraindication for transplantper se. Has been titrated off amiodarone GTT and downgraded to medicine floo rs. Tachyarrythmia currently controlled with PO amiodarone and metoprolol; suspect patient h as asusceptibility to electrical conduction abnormality due to his underlying myocardial i tom overload), which remains concerning, though per discussions with EP attending Dr. Mcintyre , his SVTs should not preclude pt from transplant and can be managed in the intra/clara-opera tive period. If difficult to control despite amio/metop, they could also offer ablative ther apies prior to transplant. Other concerns including his worsening functional and nutritional status; currently not tolerating PO. - recommend DHT for supplemental nutrition given minimal PO intake -continue PT/OT to improve functional status - continue rifaximin/lactulose for 3-5 BM's daily We will continue to follow along with you. Please page with any questions or concerns. This patient was staffed with , who agrees with above. Henrique Chapa MD Gastroenterology & Hepatology Fellow Pager: [phone] IE/S: DHT placement attempted yesterday, but tube was coiled in esophagus and removed. Sitting in chair this morning, having difficulty swallowing food this morning. O: Medications: Medications Scheduled Medication Dose/Rate, Route, Frequency Last Action amiodarone (CORDARONE) tablet 200 mg 200 mg, oral, DAILY Given: 07/27 938 deferiprone tab 2,000 mg 2,000 mg, oral, TID Given: 07/27 2221 insulin lispro (HUMALOG) injection 1-16 Units 1 Units, subQ, QID Given: 07/27 2220 insulin lispro (HUMALOG) injection 10 Units 10 Units, subQ, TID W/MEALS Given: 07/27 1930 insulin NPH (HUMULIN N) injection 18 Units 18 Units, subQ, BEFORE BREAKFAST AND HS Given: 07/27 2225 lactulose (ENULAC) 30 g 30 g, oral, TID Given: 07/27 2222 metoprolol tartrate (LOPRESSOR) tablet 6.25 mg 6.25 mg, oral, BID Given: 07/27 2221 midodrine (PROAMITINE) tablet 10 mg 10 mg, oral, TID Given: 07/27 2221 rifAXIMin (XIFAXAN) tablet 550 mg 550 mg, oral, BID Given: 07/27 2221 zinc sulfate (ORAZINC, ZINC-220) capsule 50 mg elemental 50 mg elemental, oral, DAILY Give n: 07/27 940 PRN Medication Dose/Rate, Route, Frequency Last Action dextrose 50 % in water IV 25 mL 25 mL, IV, PRN Ordered diclofenac (VOLTAREN) 1 % gel 4 g 4 g, top, QID PRN Given: 07/23 931 glucagon (GLUCAGEN) injection 1 mg 1 mg, IM, PRN Ordered glucose chewable tablet 16 g 16 g, oral, PRN Ordered lactulose (ENULAC) 10 g 10 g, oral, Q2H PRN Given: 07/28 401 melatonin tablet 3 mg 3 mg, oral, HS PRN Ordered polyethylene glycol (MIRALAX) packet 8.5 g 8.5 g, oral, DAILY PRN Ordered Vitals: Last 24 hour min/max Temp: 36.8 C (98.2 F) Temp Min: 36.2 C (97.2 F) Max: 36.8 C (98.2 F) Pulse: 65 Pulse Min: 60 Max: 65 Resp: 16 Resp Min: 14 Max: 18 BP: 113/57 BP Min: 104/50 Max: 121/69 SpO2: 100 % SpO2 Min: 100 % Max: 100 % Body mass index is 25.1 kg/m. Exam: Gen:NAD, sitting in chair CV: RRR + holosystolic murmur Abd: Soft, NT,tympanic to percussion and moderately distended Ext:R knee ecchymosesimproved,b/l LE edema Labs: Recent Labs 07/27/19 1434 07/27/19 1953 07/28/19 0338 WBC 3.51 4.29 3.81 HB 6.8* 7.8* 7.5* HCT 20.4* 23.2* 21.7* PLT 30* 32* 24* Recent Labs 07/26/19 0436 07/27/19 0329 07/27/19 1833 07/27/19 2125 07/28/19 0338 NA 138 -- 138 -- -- -- 140 K 4.2 -- 4.2 -- -- -- 4.6 CL 109* -- 110* -- -- -- 110* BICARB 21 -- 20* -- -- -- 17* BUN 35* -- 35* -- -- -- 37* CR 1.09 -- 1.08 -- -- -- 1.09 GLU 189* < > 232* < > 188* 231* 238* CA 9.2 -- 9.1 -- -- -- 8.6 AST 65* -- 64* -- -- -- 59* ALT 34 -- 32 -- -- -- 32 AP 100 -- 98 -- -- -- 102 TBILI 14.8* -- 14.3* -- -- -- 13.6* TP 6.3* -- 6.2* -- -- -- 6.0* ALB 3.1* -- 3.0* -- -- -- 3.0* ANIONGAP 8 -- 8 -- -- -- 13* ANIONALBCOR 10 -- 10 -- -- -- 15* < > = values in this interval not displayed. Labs: Lab Results Component Value Date MG 1.5 07/26/2019 Lab Results Component Value Date INRPT 3.84 (H) 07/28/2019 No results found for: FK506 Imaging and Other Studies: 07/19/2019 TTE Final Impressions: 1. The left ventricular size [...] dated 04/21/2019, there are no significant changes. PROCEDURES 07/17/2019 US with Dopplers IMPRESSION: Cirrhotic liver morphology with findings of portal hypertension. Unremarkable Doppler ultrasound without evidence of venous thrombosis. Cholelithiasis without evidence of cholecystitis. MELD-Na score: 32 at 07/28/2019 3:38 AM MELD score: 32 at 07/28/2019 3:38 AM Calculated from: Serum Creatinine: 1.09 mg/dL at 07/28/2019 3:38 AM Serum Sodium: 140 mmol/L (Rounded to 137 mmol/L) at 07/28/2019 3:38 AM Total Bilirubin: 13.6 mg/dL at 07/28/2019 3:38 AM INR(ratio): 3.84 INR at 07/28/2019 3:38 AM Age: 54 years Associated attestation - Laurita Pinon MD - 07/28/2019 3:22 PM PDTHepatology Atten ding I saw and examined this patient with Dr. Chapa, and agree with the findings, assessment, an d plan as described in the noted from 07/28/2019, which corresponds to the date when I perso araecli saw this patient. Briefly, 54 y/o male with cirrhosis due to alcohol, listed for liver transplant but inactiv e on the list due to a confluence of cardiac problems but most recently tachyarrhythmias. Th shimon have been controlled. Currently he is mildly confused and has been in and out of hepatic encephalopathy, and is getting quite debilitated from lack of getting out of his hospital b ed as well as inadequate nutrition. We have tried (but been unsuccessful) at getting a DHT d own him for nutrition. From the cardiac point of view, the patient has several risk factors for post-LT heart fail ure, including (1) alcohol as etiology of liver failure, (2) depressed EF (55-60, low for th e hyperdynamic hemodynamics of a cirrhotic patient), and (3) iron deposition in his myocardi um. He has been evaluated by EP, whose opinion is that the SVT is controlled and in itself w ould not be something that would significantly increase clara-operative risk. However, all of the factors together are indeed worrisome to the liver transplant team, and we will need to discuss whether he might be at too high of a risk for transplant at our selection conference. I called and spoke with the patient's sister, Richelle, who has been frustrated with the patie nt's course. Specifically, she was frustrated that the patient could be made inactive "by th e stroke of a tamez" but that we needed to wait until our group met to re-activate him. She un derstands that he is on the high-risk side of things from the heart point of view, though dwight says she'd never heard (until I told her) about the various factors that increase his risk for post-LT heart failure. I told her also that the EP account consultant said that the tachyarrhyt hmia should not itself preclude transplant, but that this wasn't an endorsement of the overa ll perioperative cardiac risk for liver transplant, which is something determined by the [facility] transplant team. She understood, and says that she and her mother will await the team's d ecision, and continue to support her brother in any way she can. I spent a total of 35 minutes was spent in the care and managment of this patient, of which greater than 50% was spent on counseling and/or coordination of care for the conditions of cirrhosis due to alcohol, iron overload. Henrique Chapa MD - 07/27/2019 11:56 AM PDTFormatting of this note might be different fro m the original. Hepatology Inpatient Consult Follow-Up Note Name: Doug Lawson A/P: Transplant Status: Status 7 Blood Type: A+ MELD-Na: 34 A/P: Mr. Lawson is a 54 yo man with spur cell anemia requiring chronic transfusions c/b iron over load, EtOH cirrhosis c/b ascites with MELD 34 (07/27), Blood type A+, listed for liver transp lant,transferred for AMS and falls found to have hyperglycemia and renal insufficiency, ho spital course complicated by SVT requiring ICU transfer and amiodarone drip. Work-up thus fa r has been unremarkable, including a knee aspirate demonstrating findings most consistent wi th hemarthrosis.He'sdemonstrated noovert GI bleeding;so endoscopic work-up for thi s is unmerited in the setting of known spur cell anemia. Transplant infectious disease has also weighed in,with no e/o infection/sepsis as etiology of SVT/afib. In regard to his t achyarrythmia, his cardiac function appears to be compensated and is not a contraindication for transplantper se. Has been titrated off amiodarone GTT and downgraded to medicine floo rs. Tachyarrythmia currently controlled with PO amiodarone and metoprolol; suspect patient h as asusceptibility to electrical conduction abnormality due to his underlying myocardial i tom overload), which remains concerning, though per discussions with EP attending Dr. Mcintyre , his SVTs should not preclude pt from transplant and can be managed in the intra/clara-opera tive period. If difficult to control despite amio/metop, they could also offer ablative ther apies prior to transplant. Other concerns including his worsening functional and nutritional status; currently not tolerating PO. - recommend DHT for supplemental nutrition given minimal PO intake -continue PT/OT to improve functional status - continue rifaximin/lactulose for 3-5 BM's daily We will continue to follow along with you. Please page with any questions or concerns. This patient was staffed with , who agrees with above. Henrique Chapa MD Gastroenterology & Hepatology Fellow Pager: [phone] IE/S: Oriented to person and place today; working with PT this morning. O: Medications: Medications Scheduled Medication Dose/Rate, Route, Frequency Last Action amiodarone (CORDARONE) tablet 200 mg 200 mg, oral, DAILY Given: 07/27 938 deferiprone tab 2,000 mg 2,000 mg, oral, TID Given: 07/27 935 insulin lispro (HUMALOG) injection 1-16 Units 1 Units, subQ, QID Given: 07/27 932 insulin lispro (HUMALOG) injection 10 Units 10 Units, subQ, TID W/MEALS Given: 07/27 932 insulin NPH (HUMULIN N) injection 16 Units 16 Units, subQ, BEFORE BREAKFAST AND HS Given: 07/27 932 lactulose (ENULAC) 30 g 30 g, oral, TID Given: 07/27 942 metoprolol tartrate (LOPRESSOR) tablet 6.25 mg 6.25 mg, oral, BID Given: 07/27 934 midodrine (PROAMITINE) tablet 10 mg 10 mg, oral, TID Given: 07/27 938 rifAXIMin (XIFAXAN) tablet 550 mg 550 mg, oral, BID Given: 07/27 939 zinc sulfate (ORAZINC, ZINC-220) capsule 50 mg elemental 50 mg elemental, oral, DAILY Give n: 07/27 940 PRN Medication Dose/Rate, Route, Frequency Last Action dextrose 50 % in water IV 25 mL 25 mL, IV, PRN Ordered diclofenac (VOLTAREN) 1 % gel 4 g 4 g, top, QID PRN Given: 07/23 931 glucagon (GLUCAGEN) injection 1 mg 1 mg, IM, PRN Ordered glucose chewable tablet 16 g 16 g, oral, PRN Ordered lactulose (ENULAC) 10 g 10 g, oral, Q2H PRN Given: 07/26 141 melatonin tablet 3 mg 3 mg, oral, HS PRN Ordered polyethylene glycol (MIRALAX) packet 8.5 g 8.5 g, oral, DAILY PRN Ordered Vitals: Last 24 hour min/max Temp: 36.2 C (97.2 F) Temp Min: 36.2 C (97.2 F) Max: 36.6 C (97.9 F) Pulse: 59 Pulse Min: 57 Max: 134 Resp: 16 Resp Min: 16 Max: 18 BP: 107/66 BP Min: 98/60 Max: 112/53 SpO2: 100 % SpO2 Min: 99 % Max: 100 % Body mass index is 25.1 kg/m. Exam: Gen:Sleeping, appears comfortable CV: Sinus jessica, + holosystolic murmur Abd: Soft, NT,tympanic to percussion and moderately distended Ext:R knee ecchymoses improved, b/l LE edema Neuro: No asterixis, following commands, waxes and wanes with mental status, A&Ox2 (person, place) Labs: Recent Labs 07/25/19 1355 07/26/19 0436 07/27/19 0329 WBC 5.47 5.12 4.27 HB 8.3* 8.0* 7.2* HCT 25.1* 23.3* 21.5* PLT 40* 37* 40* Recent Labs 07/25/19 0598 07/26/19 0436 07/26/19 1755 07/26/19 2152 07/27/19 0329 NA 138 -- 138 -- -- -- 138 K 4.6 -- 4.2 -- -- -- 4.2 CL 108 -- 109* -- -- -- 110* BICARB 23 -- 21 -- -- -- 20* BUN 37* -- 35* -- -- -- 35* CR 1.10 -- 1.09 -- -- -- 1.08 GLU 153* < > 189* < > 160* 172* 232* CA 9.5 -- 9.2 -- -- -- 9.1 AST 69* -- 65* -- -- -- 64* ALT 36 -- 34 -- -- -- 32 AP 108 -- 100 -- -- -- 98 TBILI 14.4* -- 14.8* -- -- -- 14.3* TP 6.3* -- 6.3* -- -- -- 6.2* ALB 3.1* -- 3.1* -- -- -- 3.0* ANIONGAP 7 -- 8 -- -- -- 8 ANIONALBCOR 9 -- 10 -- -- -- 10 < > = values in this interval not displayed. Labs: Lab Results Component Value Date MG 1.5 07/26/2019 Lab Results Component Value Date INRPT 4.24 (H) 07/27/2019 No results found for: FK506 Imaging and Other Studies: 07/19/2019 TTE Final Impressions: 1. The left ventricular size [...] dated 04/21/2019, there are no significant changes. PROCEDURES 07/17/2019 US with Dopplers IMPRESSION: Cirrhotic liver morphology with findings of portal hypertension. Unremarkable Doppler ultrasound without evidence of venous thrombosis. Cholelithiasis without evidence of cholecystitis. MELD-Na score: 33 at 07/27/2019 3:29 AM MELD score: 33 at 07/27/2019 3:29 AM Calculated from: Serum Creatinine: 1.08 mg/dL at 07/27/2019 3:29 AM Serum Sodium: 138 mmol/L (Rounded to 137 mmol/L) at 07/27/2019 3:29 AM Total Bilirubin: 14.3 mg/dL at 07/27/2019 3:29 AM INR(ratio): 4.24 INR at 07/27/2019 3:29 AM Age: 54 years Associated attestation - Laurita Pinon MD - 07/27/2019 6:40 PM PDTHepatology Atten ding I saw and examined this patient with Dr. Chapa, and agree with the findings, assessment, an d plan as described in the noted from 07-27-2019, which corresponds to the date when I perso araceli saw this patient. Briefly, 54 y/o male listed but inactive on the liver transplant list, now stable from the point of view of the tachyarrhythmia. However, I am concerned that the confluence of his car diac problems puts him at significant clara-operative risk for liver transplant. He has a mar ginal EF in setting of hyperdynamic heart due to cirrhosis, iron overload, and the intermitt ent tachyarrhythmia. In addition, he is getting increasingly debilitated and malnourished. I think if the patient is to have a reasonable chance at transplant, we need to get better nu trition (DHT and feeds with input from nutrition) and get him out of bed with PT. I spent a total of 25 minutes was spent in the care and managment of this patient, of which greater than 50% was spent on counseling and/or coordination of care for the conditions of alcoholic cirrhosis iron overload, spur cell anemia. Julian Feliciano MD - 07/27/2019 6:59 AM PDT Gen Med 3 Service Progress Note 24 Hour Events: - no acute events overnight Subjective: Seen at bedside this morning. Encephalopathy improved from yesterday. Alert and oriented x2 . Got a good night of sleep, and was able to eat breakfast this morning with help from MAGALYS lund fed him. Denies pain, dizziness, SOB, fever, chills, n/v, or worsening pain in R knee. Ye day multiple attempts at placing DHT for tube feeds were unsuccessful. No epistaxis or d ysphagia. 8-system ROS otherwise negative. Nursing and consulting service notes reviewed. Objective: Physical Examination: Vitals interpretation - stable Last 24 hour min/max Temp: 36.4 C (97.5 F) Temp Min: 36.3 C (97.3 F) Max: 36.6 C (97.9 F) Pulse: 57 Pulse Min: 57 Max: 134 Resp: 16 Resp Min: 16 Max: 18 BP: 100/56 BP Min: 98/60 Max: 112/53 SpO2: 99 % SpO2 Min: 99 % Max: 100 % Body mass index is 25.1 kg/m. Intake/Output Summary (Last 24 hours) at 07/26/2019 09 Last data filed at 07/26/2019 0019 Gross per 24 hour Intake 1938 ml Output 650 ml Net 1288 ml Medications reviewed. General Appearance:Jaundiced, lying in bed, comfortable, NAD HEENT:Scleral icterus, EOMI, MMM Respiratory:CTAB, no wheeze or crackles Cardiovascular: RRR, 2/6 holosystolic murmur loudest at left sternal border Gastrointestinal:Obese, soft, non-tender, no rebound, no guarding Musculoskeletal:1+ pitting edema to mid [place] Skin:Jaundiced. Large ecchymosis over R knee Neurologic:AAOx2 (unable to state year). Grossly non focal. Psychiatric:Cooperative. Laboratory Interpretation: - chem: stable - cbc: notable for anemia, thrombocytopenia, INR 4.24, otherwise stable - micro: BCx 10/ x2 pending. Imaging Interpretation: CXR 07/26 negative for signs of infection. 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 ~15 minute run of SVT yesterda y that self-terminated. Should he have more episodes of SVT will consider increasing beta-bl ocker and if unable to manage with that would consider digoxin loading. - Rate control: metoprolol tartrate 6.25mg BID - Rhythm control: 10g amio load complete 07/26. Start maintenance dose 200 mg PO daily 07/27 - Electrolytes: K > 4, Mg > 2 - Monitoring: telemetry # Alcoholic Cirrhosis c/b HE, ascites, TCP Encephalopathy slightly improved today, AAOx2. Had 2 BMs overnight. PO intake improved with switch to mechanical soft diet and help of MILK DRIVER feeding. Overall worsening mental status pos sibly 2/2 underlying delerium, decreased PO and over-administration of lactulose causing man y BMs overnight resulting in dehydration. Infectious workup negative to date with negative U A and CXR, BCx pending. - F/u 07/26 BCx. -Hepatic Encephalopathy - lactulose titration 30 grams TID with PRN additional goal of 3-5 BM daily, rifaximin - Consultants - Hepatology following- Currently status 7 due to SVTs # KAR with concern for HRS Patient presented with KAR and was resuscitated with the HRS cocktail with improvement in h is kidney function. His albumin is currently adequate, not requiring repletion. - Midodrine 10 mg TID -Discontinuedoctreotide per hepatology recs # Spur cell anemia # Iron overload Goal hemoglobin of 7. Hgb today 7.2 with slow daily decline since 07/23. UA with RBCs. No bl oody stools or melena. R knee hemarthrosis stable on exam. - Continue home [id number] mg TID. - Zinc 50 mg PO daily. - UA with 16 RBCs. On chart review, has multiple similar prior UAs. - Active type and screen. 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 CBG 10 PM last night low at 73, subsequently did not receive evening NPH dose. - NPH 18 U BID - Lispro to 10 U TID WM - Mild SSI - simulation educator to see him as DM is new diagnosis as of this admission #Hyperthyroidism, mild - Unlikely to be driving tachycardia - Outpatient follow up Bowel Regimen: Per admission protocol Diet: diabetic, 2g sodium DVT PPx: none given hemolytic anemia Monitoring: tele for SVT Mobility: up with assist Sleep: Melatonin PRN Surrogate Decision Maker Primary Surrogate Decision Maker Doreen norwood [phone] Secondary Surrogate Decision Maker Priyanka Rivera mother Julian Feliciano MD Internal Medicine PGY1 Pager [phone] Associated attestation - Des Gamez MD - 07/27/2019 6:40 PM PDTA resident assiste d with documenting this service. I saw the patient and reviewed and verified all information documented by the resident. I agree with the residents documentation and have documented an y additions or exceptions. 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 Ence phalopathy continues to wax and wane somewhat but overall appeared more alert/interactive an d oriented today. Will continue to encourage/facilitate good PO intake--have yet to successf ully place a DHT--will give him a break on this tonight, but likely re-attempt tomorrow. [place] ntrending Hgb presumptively from spur cell anemia and transfusing again today. Danial Gamez MD Medical Teaching and Clinical Hospitalist Services [facility] Pager [phone] I spent 40 minutes taking care of this patient while on the medical unit coordinating care and counseling regarding the above medical problems. Maryam Baldwin MD - 07/26/2019 9:46 AM PDT Hepatology Inpatient Consult Follow-Up Note Transplant Status: Status 7 Blood Type: A+ MELD-Na: 32 A/P: Mr. Lawson is a 54 yo man with spur cell anemia requiring chronic transfusions c/b iron over load, EtOH cirrhosis c/b ascites with MELD 36 (07/20), Blood type A+, listed for liver transp lant,transferred for AMS and falls found to have hyperglycemia and renal insufficiency, ho spital course complicated by SVT requiring ICU transfer and amiodarone drip. Work-up thus fa r has been unremarkable, including a knee aspirate demonstrating findings most consistent wi th hemarthrosis. He's demonstrated noovert GI bleeding; so endoscopic work-up for this i s unmerited in the setting of known spur cell anemia. Transplant infectious disease hasa lso weighed in, with no e/o infection/sepsis as etiology of SVT/afib. In regard to his tachy arrythmia, his cardiac function appears to be compensated and is not a contraindication for transplant per se. Has been titrated off amiodarone GTT and downgraded to medicine floors. H owever he continues to have intermittent tachyarrthymia despite no precipitants. We suspect patient has asusceptibility to electrical conduction abnormality due to his underlying roberth cardial iron overload). - DHT for supplemental nutrition given minimal PO intake - encourage pt to remain OOB during the day and ambulate with assistance given reversal of sleep/wake cycle - repeat infectious work-up with BCx, UA/UCx, CXR, and diagnostic paracentesis if ascites p resent - appreciate EP recommendations re: management of tachyarrhythmias, currently under control on amiodarone and metoprolol. Discussed with EP attending Dr. Mcintyre. His SVTs should not p reclude pt from transplant and can be managed in the intra/clara-operative period. If difficu lt to control despite amio/metop, could also offer ablative therapies prior to transplant - continue rifaximin/lactulose for 3-5 BM's daily We will continue to follow along with you. Please page with any questions or concerns. This patient was staffed with , who agrees with above. Maryam Baldwin MD [facility] Transplant Hepatology Fellow IE/S: No new SVT Minimal PO intake per calorie count Minimally interactive this AM. O: Medications: Medications Scheduled Medication Dose/Rate, Route, Frequency Last Action amiodarone (CORDARONE) tablet 200 mg 200 mg, oral, DAILY Ordered amiodarone (CORDARONE) tablet 400 mg 400 mg, oral, TID Given: 07/25 2158 deferiprone tab 2,000 mg 2,000 mg, oral, TID Given: 07/25 2159 insulin lispro (HUMALOG) injection 1-16 Units 2 Units, subQ, QID Given: 07/26 832 insulin lispro (HUMALOG) injection 10 Units 10 Units, subQ, TID W/MEALS Given: 07/26 832 insulin NPH (HUMULIN N) injection 16 Units 16 Units, subQ, BEFORE BREAKFAST AND HS Given: 07/26 832 lactulose (ENULAC) 30 g 30 g, oral, TID Given: 07/25 2159 metoprolol tartrate (LOPRESSOR) tablet 6.25 mg 6.25 mg, oral, BID Given: 07/25 2158 midodrine (PROAMITINE) tablet 10 mg 10 mg, oral, TID Given: 07/25 2158 rifAXIMin (XIFAXAN) tablet 550 mg 550 mg, oral, BID Given: 07/25 2158 zinc sulfate (ORAZINC, ZINC-220) capsule 50 mg elemental 50 mg elemental, oral, DAILY Give n: 07/25 855 PRN Medication Dose/Rate, Route, Frequency Last Action dextrose 50 % in water IV 25 mL 25 mL, IV, PRN Ordered diclofenac (VOLTAREN) 1 % gel 4 g 4 g, top, QID PRN Given: 07/23 09 glucagon (GLUCAGEN) injection 1 mg 1 mg, IM, PRN Ordered glucose chewable tablet 16 g 16 g, oral, PRN Ordered lactulose (ENULAC) 10 g 10 g, oral, Q2H PRN Given: 07/23 1815 melatonin tablet 3 mg 3 mg, oral, HS PRN Ordered Vitals: Last 24 hour min/max Temp: 36.6 C (97.9 F) Temp Min: 36.5 C (97.7 F) Max: 36.7 C (98.1 F) Pulse: 59 Pulse Min: 54 Max: 60 Resp: 18 Resp Min: 16 Max: 20 BP: 108/64 BP Min: 100/50 Max: 148/107 SpO2: 100 % SpO2 Min: 100 % Max: 100 % Body mass index is 25.1 kg/m. Exam: Gen:Sleeping, appears comfortable Neuro:Unable to cooperate with exam, responds to loud voice and sternal rub but not appro priately answering all questions CV: Sinus jessica, + holosystolic murmur Abd: Soft, NT,tympanic to percussion and moderately distended Ext:R knee ecchymoses improved, b/l LE edema Labs: Recent Labs 07/25/19 0525 07/25/19 1355 07/26/19 0436 WBC 4.44 5.47 5.12 HB 8.0* 8.3* 8.0* HCT 23.7* 25.1* 23.3* PLT 36* 40* 37* Recent Labs 07/24/19 0604 07/25/19 0525 07/25/19 2144 07/26/19 0436 07/26/19 0824 NA 137 -- 138 -- -- 138 -- K 4.0 -- 4.6 -- -- 4.2 -- CL 106 -- 108 -- -- 109* -- BICARB 23 -- 23 -- -- 21 -- BUN 34* -- 37* -- -- 35* -- CR 1.08 -- 1.10 -- -- 1.09 -- GLU 159* < > 153* < > 170* 189* 176* CA 9.5 -- 9.5 -- -- 9.2 -- AST 86* -- 69* -- -- 65* -- ALT 43 -- 36 -- -- 34 -- AP 123 -- 108 -- -- 100 -- TBILI 16.9* -- 14.4* -- -- 14.8* -- TP 6.7 -- 6.3* -- -- 6.3* -- ALB 3.4* -- 3.1* -- -- 3.1* -- ANIONGAP 8 -- 7 -- -- 8 -- ANIONALBCOR 9 -- 9 -- -- 10 -- < > = values in this interval not displayed. Labs: Lab Results Component Value Date MG 1.5 07/26/2019 Lab Results Component Value Date INRPT 3.80 (H) 07/26/2019 Imaging and Other Studies: 07/19/2019 TTE Final Impressions: 1. The left ventricular size [...] dated 04/21/2019, there are no significant changes. PROCEDURES 07/17/2019 US with Dopplers IMPRESSION: Cirrhotic liver morphology with findings of portal hypertension. Unremarkable Doppler ultrasound without evidence of venous thrombosis. Cholelithiasis without evidence of cholecystitis. MELD-Na score: 32 at 07/26/2019 4:36 AM MELD score: 32 at 07/26/2019 4:36 AM Calculated from: Serum Creatinine: 1.09 mg/dL at 07/26/2019 4:36 AM Serum Sodium: 138 mmol/L (Rounded to 137 mmol/L) at 07/26/2019 4:36 AM Total Bilirubin: 14.8 mg/dL at 07/26/2019 4:36 AM INR(ratio): 3.80 INR at 07/26/2019 4:36 AM Age: 54 years Julian Arita MD - 07/26/2019 7:03 AM PDTFormatting of this note might be different from the martha ginal. Gen Med 3 Service Progress Note 24 Hour Events: - no acute events overnight Subjective: Seen at bedside this morning. Appears slightly more encephalopathic than yesterday. Is able to state name, and president, but not able to identify the year or location. States he has no new concerns or complaints. Is hungry and currently eating breakfast. Denies chest pain, palpitations, dizziness, SOB, abd pain. No fevers or chills. No n/v. No dysuria or change in his R knee pain. Patient's and mother at bedside later in the day, express displeasure with plan to start tube feeds, stating patient's worsening mental status is a result of lac k of sleep from disruptions caused by old roommate, and that all the patient needs medically at this time is a liver transplant. 8-system ROS otherwise negative. Nursing and consulting service notes reviewed. Objective: Physical Examination: Vitals interpretation - stable Last 24 hour min/max Temp: 36.6 C (97.9 F) Temp Min: 36.5 C (97.7 F) Max: 36.7 C (98.1 F) Pulse: 57 Pulse Min: 54 Max: 60 Resp: 16 Resp Min: 16 Max: 20 BP: 107/55 BP Min: 100/50 Max: 148/107 SpO2: 100 % SpO2 Min: 100 % Max: 100 % Body mass index is 25.1 kg/m. Intake/Output Summary (Last 24 hours) at 07/26/2019 0901 Last data filed at 07/26/2019 0019 Gross per 24 hour Intake 1938 ml Output 650 ml Net 1288 ml Medications reviewed. General Appearance:Jaundiced, sitting up in bed eating breakfast, comfortable, NAD HEENT:Scleral icterus, EOMI, MMM Respiratory:CTAB, no wheeze or crackles Cardiovascular: RRR, 2/6 holosystolic murmur loudest at left sternal border Gastrointestinal:Obese, soft, non-tender, no rebound, no guarding Musculoskeletal:2+ pitting edema to mid delgadillo Skin:Jaundiced. Large ecchymosis over R knee Neurologic:AAOx2 (unable to state year). Grossly non focal. Psychiatric:Cooperative. Laboratory Interpretation: - chem: stable - cbc: notable for anemia, thrombocytopenia, otherwise stable - UA 07/25 with 16 RBCs, negative for signs of infection or crystals. 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 Call from tele today at 12:06 that patient sustaining SVT. SVT sustained for 30 minutes, self resolved without medications . Attempted to contact EP without response. 500cc bolus started as SVT resolved. Will contin ue with amiodarone loading. Should he have more episodes of SVT will consider increasing bet a-orion and if unable to manage with that would consider digoxin loading. - Rate control: metoprolol tartrate 6.25mg BID - Rhythm control: completing amiodarone load as ordered, starting maintenance dose, 200mg B ID, on 07/27 - Electrolytes: K > 4, Mg > 2 - Monitoring: telemetry # Alcoholic Cirrhosis c/b HE, ascites, TCP Slightly more encephalopathic today, AAOx1. Had 3 BMs overnight. Hasn't been sleeping well due to roommate who creates a disturbance. Roommate gone as of this morning. Has had decreas ed PO intake over past 48 hours, requiring dose reduction of insulin. Worsening mental statu s possibly 2/2 underlying delerium given roommate and lack of sleep, as well as due to decre ased PO and over-administration of lactulose causing many BMs overnight resulting in dehydra tion. Could also be due to underlying infection, will repeat infectious workup per hepatolog y recs. HDS, afebrile. - Ordered CXR, blood culture x2. UA yesterday negative for signs of infection. -Hepatic Encephalopathy - lactulose titration 30 grams TID with PRN additional goal of 3-5 BM daily, rifaximin - Consultants - Hepatology following- Currently status 7 due to SVTs # KAR with concern for HRS Patient presented with KAR and was resuscitated with the HRS cocktail with improvement in h is kidney function. His albumin is currently adequate and so I will defer on further repleti on at this time. - Midodrine 10 mg TID for from 15 mg TID -Discontinuedoctreotide per hepatology recs # Spur cell anemia # Iron overload While awaiting transplant goal hemoglobin of 8 per hepatology recs. Otherwise more conserva tive transfusion goal. Red urine possibly bilious vs bloody - Continue home [id number] mg TID. - Zinc 50 mg PO daily. - UA with 16 RBCs. On chart review, has multiple similar prior UAs. 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 CBG 10 PM last night low at 73, subsequently did not receive evening NPH dose. - NPH 16 U BID - Decrease Lispro to 10 U TID WM - Mild SSI - simulation educator to see him as DM is new diagnosis as of this admission #Hyperthyroidism, mild - Unlikely to be driving tachycardia - Outpatient follow up Bowel Regimen: Per admission protocol Diet: diabetic, 2g sodium DVT PPx: none given hemolytic anemia Monitoring: tele for SVT Mobility: up with assist Pain: APAP PRN Sleep: Melatonin PRN Surrogate Decision Maker Primary Surrogate Decision Maker Doreen norwood [phone] Secondary Surrogate Decision Maker Priyanka Rivera mother Julian Feliciano MD Internal Medicine PGY1 Pager [phone] Associated attestation - Des Gamez MD - 07/26/2019 2:09 PM PDTA resident trisha kevin with documenting this service. I saw the patient and reviewed and verified all information documented by the resident. I agree with the residents documentation and have documented an y additions or exceptions. 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 Over all tele appears somewhat improved after addition of scheduled Metoprolol on top of Amio macey d ongoing. Appreciate EP evaluation/assistance. Given hypoglycemia yesterday evening will dr parham lispro dose. Hepatology concerned that encephalopathy is somewhat worse today (although he does wax and wane and mental status at time of our visit not markedly different than yest erday)--Will eval for infectious sources and initiate tube feeds to help augment nutritional status. Having fairly frequent BMs and may need to consider adjustment of lactulose dosing. Danial Gamez MD Medical Teaching and Clinical Hospitalist Services [facility] Pager [phone] I spent 38 minutes taking care of this patient while on the medical unit coordinating care and counseling regarding the above medical problems. Maryam Baldwin MD - 07/25/2019 8:20 AM PDT Hepatology Inpatient Consult Follow-Up Note Transplant Status: Status 7 Blood Type: A+ MELD-Na: 32 A/P: Mr. Lawson is a 54 yo man with spur cell anemia requiring chronic transfusions c/b iron over load, EtOH cirrhosis c/b ascites with MELD 36 (07/20), Blood type A+, listed for liver transp lant,transferred for AMS and falls found to have hyperglycemia and renal insufficiency, ho spital course complicated by SVT requiring ICU transfer and amiodarone drip. Work-up thus fa r has been unremarkable, including a knee aspirate demonstrating findings most consistent wi th hemarthrosis. He's demonstrated noovert GI bleeding; so endoscopic work-up for this i s unmerited in the setting of known spur cell anemia. Transplant infectious disease hasa lso weighed in, with no e/o infection/sepsis as etiology of SVT/afib. In regard to his tachy arrythmia, his cardiac function appears to be compensated and is not a contraindication for transplant per se. Has been titrated off amiodarone GTT and downgraded to medicine floors. H owever he continues to have intermittent tachyarrthymia despite no precipitants. We suspect patient has asusceptibility to electrical conduction abnormality due to his underlying roberth cardial iron overload). - appreciate EP recommendations re: management of tachyarrhythmias, currently under control on amiodarone and metoprolol. Discussed with EP attending Dr. Mcintyre. His SVTs should not p reclude pt from transplant and can be managed in the intra/clara-operative period. If difficu lt to control despite amio/metop, could also offer ablative therapies prior to transplant - continue rifaximin/lactulose for 3-5 BM's daily - continue calorie count to assess need for DHT - ambulate out of bed; continue PT/OT - continue delirium precautions We will continue to follow along with you. Please page with any questions or concerns. This patient was staffed with , who agrees with above. Maryam Baldwin MD [facility] Transplant Hepatology Fellow IE/S: No new SVT Denies lightheadedness, chest pain, or dizziness Ambulated with walker yesterday, not yet this morning. No sx with ambulation O: Medications: Medications Scheduled Medication Dose/Rate, Route, Frequency Last Action amiodarone (CORDARONE) tablet 200 mg 200 mg, oral, DAILY Ordered amiodarone (CORDARONE) tablet 400 mg 400 mg, oral, TID Given: 07/24 2306 deferiprone tab 2,000 mg 2,000 mg, oral, TID Given: 07/24 2307 insulin lispro (HUMALOG) injection 1-16 Units 2 Units, subQ, QID Given: 07/24 740 insulin lispro (HUMALOG) injection 14 Units 14 Units, subQ, TID W/MEALS Given: 07/24 1854 insulin NPH (HUMULIN N) injection 20 Units 20 Units, subQ, BEFORE BREAKFAST AND HS Given: 07/24 741 lactulose (ENULAC) 30 g 30 g, oral, TID Given: 07/24 2306 metoprolol tartrate (LOPRESSOR) tablet 6.25 mg 6.25 mg, oral, BID Given: 07/24 2108 midodrine (PROAMITINE) tablet 15 mg 15 mg, oral, TID Given: 07/24 2306 octreotide (SANDOSTATIN) injection 200 mcg 200 mcg, subQ, TID Given: 07/24 2307 rifAXIMin (XIFAXAN) tablet 550 mg 550 mg, oral, BID Given: 07/24 2108 zinc sulfate (ORAZINC, ZINC-220) capsule 50 mg elemental 50 mg elemental, oral, DAILY Give n: 07/24 1423 PRN Medication Dose/Rate, Route, Frequency Last Action dextrose 50 % in water IV 25 mL 25 mL, IV, PRN Ordered diclofenac (VOLTAREN) 1 % gel 4 g 4 g, top, QID PRN Given: 07/23 931 glucagon (GLUCAGEN) injection 1 mg 1 mg, IM, PRN Ordered glucose chewable tablet 16 g 16 g, oral, PRN Ordered lactulose (ENULAC) 10 g 10 g, oral, Q2H PRN Given: 07/23 1815 melatonin tablet 3 mg 3 mg, oral, HS PRN Ordered Vitals: Last 24 hour min/max Temp: 36.6 C (97.9 F) Temp Min: 36.4 C (97.5 F) Max: 36.9 C (98.4 F) Pulse: 57 Pulse Min: 53 Max: 62 Resp: 20 Resp Min: 14 Max: 20 BP: 105/53 BP Min: 99/52 Max: 109/50 SpO2: 100 % SpO2 Min: 99 % Max: 100 % Body mass index is 25.1 kg/m. Exam: Gen:Lying in bed in NAD Neuro:Noasterixis, slow to answer questions CV: Sinus jessica, + holosystolic murmur Abd: Soft, NT,nondistended Ext:R knee ecchymoses with limited ROM, IV in R arm infiltrated Labs: Recent Labs 07/23/19 1623 07/24/19 0604 07/25/19 0525 WBC 7.91 7.03 4.44 HB 9.4* 9.3* 8.0* HCT 26.9* 27.3* 23.7* PLT 48* 46* 36* Recent Labs 07/23/19 0611 07/24/19 0604 07/24/19 1842 07/24/19 2205 07/25/19 0525 NA 135* -- 137 -- -- -- 138 K 3.9 -- 4.0 -- -- -- 4.6 CL 105 -- 106 -- -- -- 108 BICARB 23 -- 23 -- -- -- 23 BUN 41* -- 34* -- -- -- 37* CR 1.28 -- 1.08 -- -- -- 1.10 GLU 164* < > 159* < > 101* 73 153* CA 9.5 -- 9.5 -- -- -- 9.5 AST 93* -- 86* -- -- -- 69* ALT 46 -- 43 -- -- -- 36 AP 138* -- 123 -- -- -- 108 TBILI 13.9* -- 16.9* -- -- -- 14.4* TP 6.8 -- 6.7 -- -- -- 6.3* ALB 3.4* -- 3.4* -- -- -- 3.1* ANIONGAP 7 -- 8 -- -- -- 7 ANIONALBCOR 8 -- 9 -- -- -- 9 < > = values in this interval not displayed. Labs: Lab Results Component Value Date MG 1.8 07/22/2019 Lab Results Component Value Date INRPT 3.60 (H) 07/25/2019 No results found for: FK506 Imaging and Other Studies: 07/19/2019 TTE Final Impressions: 1. The left ventricular size [...] dated 04/21/2019, there are no significant changes. PROCEDURES 07/17/2019 US with Dopplers IMPRESSION: Cirrhotic liver morphology with findings of portal hypertension. Unremarkable Doppler ultrasound without evidence of venous thrombosis. Cholelithiasis without evidence of cholecystitis. MELD-Na score: 32 at 07/25/2019 5:25 AM MELD score: 32 at 07/25/2019 5:25 AM Calculated from: Serum Creatinine: 1.10 mg/dL at 07/25/2019 5:25 AM Serum Sodium: 138 mmol/L (Rounded to 137 mmol/L) at 07/25/2019 5:25 AM Total Bilirubin: 14.4 mg/dL at 07/25/2019 5:25 AM INR(ratio): 3.60 INR at 07/25/2019 5:25 AM Age: 54 years Julian Arita MD - 07/25/2019 6:58 AM PDTFormatting of this note might be different from the martha ginal. Gen Med 3 Service Progress Note 24 Hour Events: - no acute events overnight Subjective: Seen at bedside this morning. Seems slightly more encephalopathic than yesterday. Is able t o state name and location, but not able to identify the year. States he has no new concerns or complaints. Is hungry and waiting for breakfast. Denies chest pain, palpitations, dizzine ss, SOB, abd pain. No fevers or chills. No n/v. No dysuria or change in his R knee pain. 8-system ROS otherwise negative. Nursing and consulting service notes reviewed. Objective: Physical Examination: Vitals interpretation - notable for tachycardia, otherwise stable Last 24 hour min/max Temp: 36.4 C (97.5 F) Temp Min: 36.4 C (97.5 F) Max: 36.9 C (98.4 F) Pulse: 58 Pulse Min: 53 Max: 62 Resp: 16 Resp Min: 14 Max: 16 BP: 105/56 BP Min: 99/52 Max: 109/50 SpO2: 99 % SpO2 Min: 99 % Max: 100 % Body mass index is 25.1 kg/m. Intake/Output Summary (Last 24 hours) at 07/25/2019 0852 Last data filed at 07/25/2019 0800 Gross per 24 hour Intake 1370 ml Output 1650 ml Net -280 ml Medications reviewed. General Appearance:Jaundiced, lying in bed, comfortable, NAD HEENT:Scleral icterus, EOMI, MMM Respiratory:CTAB, no wheeze or crackles Cardiovascular: RRR, 2/6 holosystolic murmur loudest at left sternal border Gastrointestinal:Obese, soft, non-tender, no rebound, no guarding Musculoskeletal:2+ pitting edema to mid delgadillo Skin:Jaundiced. Large ecchymosis over R knee Neurologic:AAOx2 (unable to state year). Grossly non focal. Psychiatric:Cooperative. Laboratory Interpretation: - chem: stable - cbc: notable for anemia, thrombocytopenia, otherwise stable - micro: no relevant new data Imaging Interpretation: No interval imaging Clinical Impression and Plan: a 54 y/o with ESLD 2/2 EtOH c/b hepatic encephalopathy, ascites, spur cell a nemia requiring chronic transfusions and resulting in iron overload, who presented with HRS and developed SVT resulting in admission to the MICU where he was loaded with amiodarone and then was transferred to the floor on 07/22 where he will wait for a liver. 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 Does not seem to be driven by infection or hypovolemia. Continue amiodarone loading. Should he have more episodes of SVT w ould increase beta-orion and if unable to manage with that would consider digoxin loading. - Rate control: metoprolol tartrate 6.25mg BID - Rhythm control: completing amiodarone load as ordered, starting maintenance dose, 200mg B ID, on 07/27 - Electrolytes: K > 4, Mg > 2 - Monitoring: telemetry # Alcoholic Cirrhosis c/b HE, ascites, TCP His cirrhosis and complications are stabilized at this time. He is listed for a liver trans plant per the notes and I will touch base with hepatology today about what they need from us during this hospitalization. - Hepatic Encephalopathy - lactulose titration 30 grams TID with PRN additional goal of 3-5 BM daily, rifaximin - Consultants - Hepatology following- Currently status 7 due to SVTs - Worsening encephalopathy this morning most likely due to being in room w/ delerious roomm ate who did not allow him to get much sleep overnight. Nursing is aware and trying to arrang e for new room to allow him to be in a more relaxing environment. # KAR with concern for HRS Patient presented with KAR and was resuscitated with the HRS cocktail with improvement in h is kidney function. His albumin is currently adequate and so I will defer on further repleti on at this time. - Continue midodrine 15 mg TID for now, pending discussion w/ hepatology and cards/ep. -Continueoctreotide to 200 mcg TID # Spur cell anemia # Iron overload While awaiting transplant goal hemoglobin of 8 per hepatology recs. Otherwise more conserva tive transfusion goal. Concern for acute hemolysis this morning given SVT and red urine so c hecking CBC this afternoon. Would only transfuse if symptomatic. - Continue home [id number] mg TID. - Zinc 50 mg PO daily. 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 CBG 10 PM last night low at 73, subsequently did not receive evening NPH dose. - Decrease to NPH 16 U BID from 20 U - Lispro 14 U TID WM - Medium SSI - simulation educator to see him as DM is new diagnosis as of this admission #Hyperthyroidism, mild - Unlikely to be driving tachycardia - Outpatient follow up Bowel Regimen: Per admission protocol Diet: diabetic, 2g sodium DVT PPx: none given hemolytic anemia Monitoring: tele for SVT Mobility: up with assist Pain: APAP PRN Sleep: Melatonin PRN Surrogate Decision Maker Primary Surrogate Decision Maker Doreen norwood [phone] Secondary Surrogate Decision Maker Priyanka alcala Julian Feliciano MD Internal Medicine PGY1 Pager [phone] Associated attestation - Des Gamez MD - 07/25/2019 1:40 PM PDTA resident trisha d with documenting this service. I saw the patient and reviewed and verified all information documented by the resident. I agree with the residents documentation and have documented an y additions or exceptions. 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 Over all tele appears somewhat improved after addition of scheduled Metoprolol on top of Amio macey d ongoing. Aappreciate EP evaluation/assistance. If tachyarrhythmia recurrent would query ho lding midodrine (as has some theoretical contribution to arrhythmia and creatinine has shown improvement). MELD remains elevated in low 30s. Given hypoglycemia to 70s overnight will op NPH dose. Has had hgb drop over last 24 hours (although all cell lines somewhat decreased raising question of dilution)--possible sources include continued bleeding into right knee hematoma (although clinically does not appear to have significantly expanded) and also appea rs to possibly have some hematuria (Urine appearance not totally explained by hyper bili) an d so will check UA. Plan to repeat CBC this afternoon for monitoring. Concerned that encepha lopathy is somewhat worse today, and may be explained by lack of sleep, having appropriate l actulose driven bowel movements. Danial Gamez MD Medical Teaching and Clinical Hospitalist Services [facility] [place] Pager [phone] I spent 36 minutes taking care of this patient while on the medical unit coordinating care and counseling regarding the above medical problems. Henrique Chapa MD - 07/24/2019 8:53 AM PDTFormatting of this note might be different fro m the original. Hepatology Inpatient Consult Follow-Up Note Name: Doug Lawson Etiology of Liver disease: ETOH Cirrhosis Liver Transplant Status: Status 7 Blood Type: A+ Listed MELD: 38 (07/22) Biologic MELD: 32 (07/24) A/P: Mr. Lawson is a 54 yo man with spur cell anemia requiring chronic transfusions c/b iron over load, EtOH cirrhosis c/b ascites with MELD 36 (07/20), Blood type A+, listed for liver transp lant,transferred for AMS and falls found to have hyperglycemia and renal insufficiency, ho spital course complicated by SVT requiring ICU transfer and amiodarone drip. Work-up thus fa r has been unremarkable, including a knee aspirate demonstrating findings most consistent wi th hemarthrosis. He's demonstrated noovert GI bleeding; so endoscopic work-up for this i s unmerited in the setting of known spur cell anemia. Transplant infectious disease hasa lso weighed in, with no e/o infection/sepsis as etiology of SVT/afib. In regard to his tachy arrythmia, his cardiac function appears to be compensated and is not a contraindication for transplant per se. Has been titrated off amiodarone GTT and downgraded to medicine floors. H owever he continues to have intermittent tachyarrthymia despite no precipitants. We suspect patient has asusceptibility to electrical conduction abnormality due to his underlying roberth cardial iron overload), which puts patient at high clara-op risk from a cardiac perspective. Patient is now listed as status 7, and would benefit from an EP evaluation for further manag ement. Our recommendations are as follows: - EP Consult with management of his tachyarrthymia - continue rifaximin/lactulose for 3-5 BM's daily - please obtain calorie count; if patient is not meeting nutritional needs per nutrition, w ould recommend DHT for enteral feeding - ambulate out of bed; continue PT/OT -delirium precautions We will continue to follow along with you. Please page with any questions or concerns. This patient was staffed with , who agrees with above. Henrique Chapa Gastroenterology & Hepatology Fellow Pager: [phone] IE/S: -Denies chest discomfort this morning. O: Medications: Medications Scheduled Medication Dose/Rate, Route, Frequency Last Action amiodarone (CORDARONE) tablet 200 mg 200 mg, oral, DAILY Ordered amiodarone (CORDARONE) tablet 400 mg 400 mg, oral, TID Given: 07/24 3 deferiprone tab 2,000 mg 2,000 mg, oral, TID Given: 07/24 6 insulin lispro (HUMALOG) injection 1-16 Units 2 Units, subQ, QID Given: 07/24 740 insulin lispro (HUMALOG) injection 14 Units 14 Units, subQ, TID W/MEALS Given: 07/24 741 insulin NPH (HUMULIN N) injection 20 Units 20 Units, subQ, BEFORE BREAKFAST AND HS Given: 07/24 741 lactulose (ENULAC) 30 g 30 g, oral, TID Given: 07/23 1552 metoprolol tartrate (LOPRESSOR) tablet 6.25 mg 6.25 mg, oral, BID Given: 07/24 3 midodrine (PROAMITINE) tablet 15 mg 15 mg, oral, TID Given: 07/24 3 octreotide (SANDOSTATIN) injection 200 mcg 200 mcg, subQ, TID Given: 07/24 36 rifAXIMin (XIFAXAN) tablet 550 mg 550 mg, oral, BID Given: 07/23 2004 PRN Medication Dose/Rate, Route, Frequency Last Action dextrose 50 % in water IV 25 mL 25 mL, IV, PRN Ordered diclofenac (VOLTAREN) 1 % gel 4 g 4 g, top, QID PRN Given: 07/23 931 glucagon (GLUCAGEN) injection 1 mg 1 mg, IM, PRN Ordered glucose chewable tablet 16 g 16 g, oral, PRN Ordered lactulose (ENULAC) 10 g 10 g, oral, Q2H PRN Given: 07/23 1815 melatonin tablet 3 mg 3 mg, oral, HS PRN Ordered Vitals: Last 24 hour min/max Temp: 36.8 C (98.2 F) Temp Min: 36.2 C (97.2 F) Max: 36.8 C (98.2 F) Pulse: 59 Pulse Min: 59 Max: 153 Resp: 16 Resp Min: 16 Max: 20 BP: 109/52 BP Min: 95/59 Max: 121/73 SpO2: 100 % SpO2 Min: 96 % Max: 100 % Body mass index is 25.1 kg/m. Exam: Gen:NAD Neuro:Noasterixis CV: RRR Pulm: CTAB Abd: Soft, NT,nondistended Ext:R knee ecchymoses with limited ROM Labs: Recent Labs 07/23/1961007/23/19 1623 07/24/19 0604 WBC 6.19 7.91 7.03 HB 8.9* 9.4* 9.3* HCT 25.6* 26.9* 27.3* PLT 38* 48* 46* Recent Labs 07/21/19 0344 07/22/19 0529 07/23/1961007/23/19 2332 07/24/19 0604 07/24/19 0733 NA 131* -- 133* -- 135* -- -- 137 -- K 3.6 -- 3.7 -- 3.9 -- -- 4.0 -- CL 98 -- 102 -- 105 -- -- 106 -- BICARB 24 -- 24 -- 23 -- -- 23 -- BUN 39* -- 38* -- 41* -- -- 34* -- CR 1.75* -- 1.56* -- 1.28 -- -- 1.08 -- GLU 175* < > 221* < > 164* < > 110* 159* 150* CA 9.1 -- 8.9 -- 9.5 -- -- 9.5 -- AST 81* -- -- -- 93* -- -- 86* -- ALT 37 -- -- -- 46 -- -- 43 -- AP 78 -- -- -- 138* -- -- 123 -- TBILI 12.3* -- -- -- 13.9* -- -- 16.9* -- TP 6.6 -- -- -- 6.8 -- -- 6.7 -- ALB 3.7 -- -- -- 3.4* -- -- 3.4* -- ANIONGAP 9 -- 7 -- 7 -- -- 8 -- ANIONALBCOR 9 -- -- -- 8 -- -- 9 -- < > = values in this interval not displayed. Labs: Lab Results Component Value Date MG 1.8 07/22/2019 Lab Results Component Value Date INRPT 3.49 (H) 07/24/2019 No results found for: FK506 Imaging and Other Studies: 07/19/2019 TTE Final Impressions: 1. The left ventricular size [...] dated 04/21/2019, there are no significant changes. PROCEDURES 07/17/2019 US with Dopplers IMPRESSION: Cirrhotic liver morphology with findings of portal hypertension. Unremarkable Doppler ultrasound without evidence of venous thrombosis. Cholelithiasis without evidence of cholecystitis. MELD-Na score: 32 at 07/24/2019 6:04 AM MELD score: 32 at 07/24/2019 6:04 AM Calculated from: Serum Creatinine: 1.08 mg/dL at 07/24/2019 6:04 AM Serum Sodium: 137 mmol/L at 07/24/2019 6:04 AM Total Bilirubin: 16.9 mg/dL at 07/24/2019 6:04 AM INR(ratio): 3.49 INR at 07/24/2019 6:04 AM Age: 54 years Julian Arita MD - 07/24/2019 7:34 AM PDTFormatting of this note might be different from the martha ginal. Gen Med 3 Service Progress Note 24 Hour Events: - no acute events overnight Subjective: Seen at bedside this morning. In good spirits as usual. Denied any new concerns or complain ts. Denies chest pain, palpitations, dizziness, SOB, abd pain, headache, vision changes. No f/c/ns. No n/v/d. 8-system ROS otherwise negative. Nursing and consulting service notes reviewed. Objective: Physical Examination: Vitals interpretation - notable for tachycardia, otherwise stable Last 24 hour min/max Temp: 36.8 C (98.2 F) Temp Min: 36.2 C (97.2 F) Max: 36.8 C (98.2 F) Pulse: 59 Pulse Min: 59 Max: 153 Resp: 18 Resp Min: 18 Max: 20 BP: 109/52 BP Min: 95/59 Max: 121/73 SpO2: 100 % SpO2 Min: 96 % Max: 100 % Body mass index is 25.1 kg/m. Intake/Output Summary (Last 24 hours) at 07/24/19 0700 Last data filed at 07/24/19 0600 Gross per 24 hour Intake 1370 ml Output 1775 ml Net -405 ml Medications reviewed. General Appearance:Jaundiced, lying in bed, comfortable, NAD HEENT:Scleral icterus, EOMI, MMM Respiratory:CTAB, no wheeze or crackles Cardiovascular:tachycardic to 140's this morning, back in 60's after metoprolol as above Gastrointestinal:Obese, soft, non-tender, no rebound, no guarding Musculoskeletal:2+ pitting edema to mid delgadillo Skin:Jaundiced. Large ecchymosis over R knee. Neurologic:AAOx3. Grossly non focal. Psychiatric:Cooperative. 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 Does not seem to be driven by infection or hypovolemia. Continue amiodarone as planned. Should he have more episodes of SV T would increase beta-orion and if unable to manage with that would consider digoxin loadi ng (0.250mg q6h x3 doses). Wondering about midodrine playing arrythmogenic role. Will discus s with hepatology/cardiology about stopping med. - Rate control: metoprolol tartrate 6.25mg BID - Rhythm control: completing amiodarone load as ordered, starting maintenance dose, 200mg B ID, on 07/27 - Electrolytes: K > 4, Mg > 2 - Monitoring: telemetry - Discuss with hepatology and cards/ep regarding d/c midodrine. # Alcoholic Cirrhosis c/b HE, ascites, TCP His cirrhosis and complications are stabilized at this time. He is listed for a liver trans plant per the notes and I will touch base with hepatology today about what they need from us during this hospitalization. - Hepatic Encephalopathy - lactulose titration 30 grams TID with PRN additional goal of 3-5 BM daily, rifaximin - Consultants - Hepatology following- Currently status 7 due to SVTs # KAR with concern for HRS Patient presented with KAR and was resuscitated with the HRS cocktail with improvement in h is kidney function. His albumin is currently adequate and so I will defer on further repleti on at this time. - Continue midodrine 15 mg TID for now, pending discussion w/ hepatology and cards/ep. -Continueoctreotide to 200 mcg TID # Spur cell anemia # Iron overload While awaiting transplant goal hemoglobin of 8 per hepatology recs. Otherwise more conserva tive transfusion goal. Concern for acute hemolysis this morning given SVT and red urine so c hecking CBC this afternoon. Would only transfuse if symptomatic. - Continue home [id number] mg TID. Patient ran out today 07/22. Pharmacy unable to or mariam. Family will bring more 07/24, so patient will miss doses on 07/23. - Zinc 50 mg PO daily. 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 - NPH 20 BID - Lispro 14 TID WM - Medium SSI #Hyperthyroidism, mild - Unlikely to be driving tachycardia - Outpatient follow up Bowel Regimen: Per admission protocol Diet: diabetic, 2g sodium DVT PPx: none given hemolytic anemia Monitoring: tele for SVT Mobility: up with assist Pain: APAP PRN Sleep: Melatonin PRN Surrogate Decision Maker Primary Surrogate Decision Maker Doreen norwood [phone] Secondary Surrogate Decision Maker Priyanka alcala Julian Feliciano MD Internal Medicine PGY1 Pager [phone] Associated attestation - Des Gamez MD - 07/24/2019 5:32 PM PDTA resident trisha d with documenting this service. I saw the patient and reviewed and verified all information documented by the resident. I agree with the residents documentation and have documented an y additions or exceptions. 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 Over all tele appears somewhat improved after addition of scheduled Metoprolol on top of Amio macey d. Awaiting EP evaluation, and if tachyarrhythmia remains problematic would query holding mi dodrine (as has some theoretical contribution to arrhythmia and creatinine has shown improve ment). MELD remains elevated in low 30s. Will watch CBG closely as with liver disease has le ss ability to compensate for hypoglycemia--consider decrease in NPH dosing vs transition to glargine if remains in hospital for prolonged period. Anemia and thrombocytopenia remains st able to improved. Danial Gamez MD Medical Teaching and Clinical Hospitalist Services [facility] Pager [phone] I spent 37 minutes taking care of this patient while on the medical unit coordinating care and counseling regarding the above medical problems. Maryam Baldwin MD - 07/23/2019 4:58 PM PDTBrief Hepatology Note Due to recurrent episodes of SVT that have been difficult to control (sustained A-tach this morning without hemodynamic instability, converted back to sinus rhythm after IV metoprolol 15 mg total), we have made Mr. Lawson Status 7. We appreciate EP assistance with further man agement. He is somnolent this afternoon and though I did discuss the above information with him, I also called and spoke to his sister Doreen, his primary support person, and relayed th e information to her as well. She is in agreement and all questions were answered. Maryam Baldwin MD [facility] Transplant Hepatology Fellow Electronically signed by Zahida Rodriguez MD,PhD at 9 2:35 PM Amaris Culver LCSW - 07/23/2019 11:29 AM PDTLiver Transplant Social Work Note: LEARNING ENGINEER met with pt at bedside to check-in and offer support. Pt was laying in bed resting. He states he is doing "okay", given this admission was not planned. He is pleased to be reacti vated on the transplant list and is very hopeful he will received an liver offer soon. He sh ared his mother Priyanka and sister Richelle are planning to arrive tomorrow from [place]. Pt denied any needs or concerns at this time. Encouraged him to reach out as needed. LEARNING ENGINEER w ill continue to follow. WINIFRED Mckenzie LCSW Clinical Transplant Float [place] Pager: [phone] signed by Amaris Medina LCSW at 07/23/2019 11:32 AM Henrique Mac MD - 07/23/2019 8:41 AM PDT Hepatology Inpatient Consult Follow-Up Note Name: Doug Lawson A/P: Mr. Lawson is a 54 yo man with spur cell anemia requiring chronic transfusions c/b iron over load, EtOH cirrhosis c/b ascites with MELD 36 (07/20), Blood type A+, listed for liver transp lant,transferred for AMS and falls found to have hyperglycemia and renal insufficiency, ho spital course complicated by SVT requiring ICU transfer and amiodarone drip. Work-up thus fa r has been unremarkable, including a knee aspirate demonstrating findings most consistent wi th hemarthrosis. He's demonstrated noovert GI bleeding; so endoscopic work-up for this i s unmerited in the setting of known spur cell anemia. Transplant infectious disease hasa lso weighed in, with no e/o infection/sepsis as etiology of SVT/afib. In regard to his tachy arrythmia, his cardiac function appears to be compensated and is not a contraindication for transplant per se. Has been titrated off amiodarone GTT and downgraded to medicine floors. H owever he continues to have intermittent tachyarrthymia despite no precipitants. We suspect patient has asusceptibility to electrical conduction abnormality due to his underlying roberth cardial iron overload), which puts patient at high clara-op risk from a cardiac perspective. Patient is now listed as status 7, and would benefit from an EP evaluation for further manag ement. Our recommendations are as follows: - EP Consult with management of his tachyarrthymia - continue rifaximin/lactulose for 3-5 BM's daily We will continue to follow along with you. Please page with any questions or concerns. This patient was staffed with , who agrees with above. Henrique Chapa Gastroenterology & Hepatology Fellow Pager: [phone] IE/S: Temple chest discomfort this morning, with HR monitor showing tachycardia to 140s. Relieve d after IV metoprolol 15 mg. Denied bleeding symptoms. O: Medications: Medications Scheduled Medication Dose/Rate, Route, Frequency Last Action amiodarone (CORDARONE) tablet 200 mg 200 mg, oral, DAILY Ordered amiodarone (CORDARONE) tablet 400 mg 400 mg, oral, TID Given: 07/22 2209 deferiprone tab 2,000 mg 2,000 mg, oral, TID Given: 07/22 2209 insulin lispro (HUMALOG) injection 1-16 Units 2 Units, subQ, QID Given: 07/23 827 insulin lispro (HUMALOG) injection 14 Units 14 Units, subQ, TID W/MEALS Given: 07/23 827 insulin NPH (HUMULIN N) injection 20 Units 20 Units, subQ, BEFORE BREAKFAST AND HS Given: 07/23 828 lactulose (ENULAC) 30 g 30 g, oral, TID Given: 07/22 2208 midodrine (PROAMITINE) tablet 15 mg 15 mg, oral, TID Given: 07/22 2208 octreotide (SANDOSTATIN) injection 200 mcg 200 mcg, subQ, TID Given: 07/22 2207 rifAXIMin (XIFAXAN) tablet 550 mg 550 mg, oral, BID Given: 07/22 2209 PRN Medication Dose/Rate, Route, Frequency Last Action dextrose 50 % in water IV 25 mL 25 mL, IV, PRN Ordered diclofenac (VOLTAREN) 1 % gel 4 g 4 g, top, QID PRN Given: 07/22 1018 glucagon (GLUCAGEN) injection 1 mg 1 mg, IM, PRN Ordered glucose chewable tablet 16 g 16 g, oral, PRN Ordered lactulose (ENULAC) 10 g 15 mL, oral, Q2H PRN Ordered Vitals: Last 24 hour min/max Temp: 36.6 C (97.9 F) Temp Min: 36.5 C (97.7 F) Max: 37.1 C (98.7 F) Pulse: 68 Pulse Min: 54 Max: 68 Resp: 16 Resp Min: 13 Max: 23 BP: 100/49 BP Min: 100/49 Max: 115/65 SpO2: 99 % SpO2 Min: 94 % Max: 99 % Body mass index is 25.1 kg/m. Exam: Gen:NAD Neuro:Noasterixis CV: RRR Pulm: CTAB Abd: Soft, NT,nondistended Ext:R knee ecchymoses with limited ROM Labs: Recent Labs 07/21/19 0344 07/21/19 1643 07/22/19 0529 07/23/19 0611 WBC 3.80 5.29 4.77 6.19 HB 7.4* 8.5* 8.0* 8.9* HCT 21.3* 24.1* 22.9* 25.6* PLT 25* 27* 28* 38* NEUTROPERC 58.7 -- -- -- LYMPHPERC 28.4 -- -- -- MONOPERC 8.7 -- -- -- BASOPERC 0.5 -- -- -- EOSPERC 3.2* -- -- -- Recent Labs 07/18/19 0509 07/21/19 0344 07/22/19 0529 07/22/19 2325 07/23/19 0611 07/23/19 0801 NA 136 < > 131* -- 133* -- -- 135* -- K 4.1 < > 3.6 -- 3.7 -- -- 3.9 -- CL 99 < > 98 -- 102 -- -- 105 -- BICARB 29 < > 24 -- 24 -- -- 23 -- BUN 46* < > 39* -- 38* -- -- 41* -- CR 1.23 < > 1.75* -- 1.56* -- -- 1.28 -- GLU 173* < > 175* < > 221* < > 188* 164* 177* CA 9.3 < > 9.1 -- 8.9 -- -- 9.5 -- AST 66* -- 81* -- -- -- -- 93* -- ALT 45 -- 37 -- -- -- -- 46 -- AP 112 -- 78 -- -- -- -- 138* -- TBILI 13.6* -- 12.3* -- -- -- -- 13.9* -- TP 6.6 -- 6.6 -- -- -- -- 6.8 -- ALB 2.7* -- 3.7 -- -- -- -- 3.4* -- ANIONGAP 8 < > 9 -- 7 -- -- 7 -- ANIONALBCOR 11 -- 9 -- -- -- -- 8 -- < > = values in this interval not displayed. Labs: Lab Results Component Value Date MG 1.8 07/22/2019 Lab Results Component Value Date INRPT 4.11 (H) 07/23/2019 No results found for: FK506 Imaging and Other Studies: 07/19/2019 TTE Final Impressions: 1. The left ventricular size [...] dated 04/21/2019, there are no significant changes. PROCEDURES 07/17/2019 US with Dopplers IMPRESSION: Cirrhotic liver morphology with findings of portal hypertension. Unremarkable Doppler ultrasound without evidence of venous thrombosis. Cholelithiasis without evidence of cholecystitis. MELD-Na score: 35 at 07/23/2019 6:11 AM MELD score: 35 at 07/23/2019 6:11 AM Calculated from: Serum Creatinine: 1.28 mg/dL at 07/23/2019 6:11 AM Serum Sodium: 135 mmol/L at 07/23/2019 6:11 AM Total Bilirubin: 13.9 mg/dL at 07/23/2019 6:11 AM INR(ratio): 4.11 INR at 07/23/2019 6:11 AM Age: 54 years hreadg Rojas handy MD - 07/23/2019 7:59 AM PDT General Internal Medicine 3 Progress Note Author: Rojas Joy MD Attending Physician: Donell Cr MD Hospital Day: 6 24 hour events and current sx: Transferred out of the ICU Overnight had a 6 minute run of SVT This morning had a 30-45 minute run of SVT that resolved with IV metoprolol 5mg x3. No drop in blood pressure. Asymptomatic. Dark red urine starting this morning Physical Examination: Vitals - AF, HDS, softer pressures in 100's/40's, good O2 on RA Intake/Output Summary (Last 24 hours) at 07/23/2019 4861 Last data filed at 07/22/2019 1912 Gross per 24 hour Intake 1355 ml Output 850 ml Net 505 ml General Appearance: Jaundiced, lying in bed, comfortable, NAD HEENT: Scleral icterus, EOMI, MMM Respiratory: CTAB, no wheeze or crackles Cardiovascular: tachycardic to 140's this morning, back in 60's after metoprolol as above Gastrointestinal: Obese, soft, non-tender, no rebound, no guarding Musculoskeletal: 2+ pitting edema to mid delgadillo Skin: Jaundiced. Large ecchymosis over R knee. Neurologic: AAOx3. Grossly non focal. Psychiatric: Cooperative. Laboratory Interpretation: BMP - Cr 1.28 (trending down) LFT - T bili 13.9 from 12.3 CBC - stable, PLT 38 INR - 4.11 (from 4.71) Imaging Interpretation: no new imaging Assessment and Plan Mr. 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 #Paroxysmal Supraventricular Tachycardia May be related to myocardial iron deposition per cardiology. Does not seem to be driven by infection or hypovolemia from what I can tell, no evidence of that this morning during his e pisode. Reviewing the chart it seems that he previously was unable to tolerate metoprolol du e to hypotension. He was able to tolerate it this morning, 15mg IV, with resolution of his t achycardia. I recognize the metoprolol may be a cross purposes with his midodrine, but is ne cessary to prevent further SVT. We will continue amiodarone as planned. Should he have more episodes of SVT would increase beta-orion and if unable to manage with that would consider digoxin loading (0.250mg q6h x3 doses) - Rate control: metoprolol tartrate 6.25mg BID - Rhythm control: completing amiodarone load as ordered, starting maintenance dose, 200mg B ID, on 07/27 - Electrolytes: K > 4, Mg > 2 - Monitoring: telemetry # Alcoholic Cirrhosis c/b HE, ascites, TCP His cirrhosis and complications are stabilized at this time. He is listed for a liver trans plant per the notes and I will touch base with hepatology today about what they need from us during this hospitalization. - Hepatic Encephalopathy - lactulose titration 30 grams TID with PRN additional goal of 3-5 BM daily, rifaximin - Consultants - Hepatology following- re-listed on active transplant list 07/21 # KAR with concern for HRS Patient presented with KAR and was resuscitated with the HRS cocktail with improvement in h is kidney function. His albumin is currently adequate and so I will defer on further repleti on at this time. - Continue midodrine 15 mg TID -Continueoctreotide to 200 mcg TID # Spur cell anemia # Iron overload While awaiting transplant goal hemoglobin of 8 per hepatology recs. Otherwise more conserva tive transfusion goal. Concern for acute hemolysis this morning given SVT and red urine so c hecking CBC this afternoon. Would only transfuse if symptomatic. - Continue home deferiprone 2000 mg TID. Patient ran out today 07/22. Pharmacy unable to ord er. Family will bring more 07/24, so patient will miss doses on 07/23. 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 - NPH 20 BID - Lispro 14 TID WM - Medium SSI #Hyperthyroidism, mild - Unlikely to be driving tachycardia - Outpatient follow up Bowel Regimen: Per admission protocol Diet: diabetic, 2g sodium DVT PPx: none given hemolytic anemia Monitoring: tele for SVT Mobility: up with assist Pain: APAP PRN Sleep: Melatonin PRN Code Status: FULL CODE The patient was discussed with attending physician, Dr. Antwon Cr, who agrees with the abov e assessment and plan. Rojas Joy Internal Medicine PGY-3 [phone] Antione Vital MD - 11/2018 10:56 AM PDT MICU ATTENDING PROGRESS NOTE Author: Antione Talbot MD Doug is a54 y.o.male admitted for Afib with RVR. Also present on admission is ESLD co mplicating spur cell anemia, frequent transfusions leading to secondary hemachromatosis, KAR , and delirium. Back to status 1A yesterday Neuro # Encephalopathy likely metabolic. Resolved - lactulose and rifaximin Cards # Afib with RVR with baseline low BPs from ESLD made worse with lack of atrial kick. Has be en without Afib for several days - amiodarone PO - now that the blood pressure is robust after midodrine; can consider metoprolol as antiarr hythmic - midodrine to increase SVR and cardiac reserve GI # ESLD. INR worsened today and bili remains high. - status 1A Renal # KAR possibly HRS. We will try to normalize macrohemodynamics. Improved on HRS. - midodrine 15mg TID - octreotide 200mcg TID - albumin supplementation # Hyponatremia likely from renal hypoperfusion in setting of cirrhosis and KAR. Improved. Heme # Anemia from spur anemia. # Hemachromatosis -deferiprone # Coagulopathy likely from liver failure Endo # DM - SQ insulin Nutrition - encourage PO Antione Talbot MD I personally assessed the patient, performed the tamez elements of the physical examination, and personally formulated the assessment and plan with the MICU resident and the team. See r johandent note for details. Hospital day # 5. I spent 15 min in the care and management, not including procedural time, of this patient w ho is no longer critically ill. Henrique Krishna MD - 2018 7:49 AM PDT Hepatology Inpatient Consult Follow-Up Note Name: Doug Lawson A/P: Mr. Lawson is a 54 yo man with spur cell anemia requiring chronic transfusions c/b iron over load, EtOH cirrhosis c/b ascites with MELD 36 (07/20), Blood type A+, listed for liver transp lant,transferred for AMS and falls found to have hyperglycemia and renal insufficiency, ho spital course complicated by SVT requiring ICU transfer and amiodarone drip. Work-up thus fa r has been unremarkable, including a knee aspirate demonstrating findings most consistent wi th hemarthrosis. His Hgb will intermittently drop which corresponds with his runs of SVT/af ib, which have been responsive to amiodarone. He's not demonstratedovert GI bleeding so en doscopic work-up for this is unmerited in the setting of known spur cell anemia.Would also closely monitor his R knee to r/o worsening hemarthrosis. Cardiac function appears to be compensated and is not a contraindication for transplant (no r is amiodarone);has been titrated to PO amiodarone since yesterday. Transplant infectious disease hadalso weighed inthis past weekend, with no e/o infection/sepsis as etiology o f SVT/afib. Briefly placed the patient on status 7 on 07/20, given interval worsening of ment al status & concern for infection. However patient's mental status quickly returned to basel ine without any intervention, and after further discussion with ICU teams suspect that infec tion is not ongoing. Moreover, patient's arrythmia seems to be well controlled with amiodaro ne PO (we suspect patient has a susceptibility to electrical conduction abnormality due to h is underlying myocardial iron overload). Is now reactivated for liver transplant. Our recommendations are as follows: - no cardiac contraindication to transplant given TTE findings - continue rifaximin/lactulose for 3-5 BM's daily We will continue to follow along with you. Please page with any questions or concerns. This patient was staffed with Dr. Rodriguez, who agrees with above. Henrique Chapa Gastroenterology & Hepatology Fellow Pager: [phone] IE/S: Mentating well. Having 4-5 BMs/day. O: Medications: Medications Scheduled Medication Dose/Rate, Route, Frequency Last Action amiodarone (CORDARONE) tablet 200 mg 200 mg, oral, DAILY Ordered amiodarone (CORDARONE) tablet 400 mg 400 mg, oral, TID Given: 07/21 2127 deferiprone tab 2,000 mg 2,000 mg, oral, TID Given: 07/21 1618 insulin lispro (HUMALOG) injection 1-16 Units 2 Units, subQ, QID Given: 07/21 2132 insulin lispro (HUMALOG) injection 14 Units 14 Units, subQ, TID W/MEALS Given: 07/21 1624 insulin NPH (HUMULIN N) injection 20 Units 20 Units, subQ, BEFORE BREAKFAST AND HS Given: 07/22 634 lactulose (ENULAC) 30 g 30 g, oral, TID Given: 07/21 1619 midodrine (PROAMITINE) tablet 15 mg 15 mg, oral, TID Given: 07/21 2128 octreotide (SANDOSTATIN) injection 200 mcg 200 mcg, IV, TID Given: 07/21 2128 rifAXIMin (XIFAXAN) tablet 550 mg 550 mg, oral, BID Given: 07/21 2128 PRN Medication Dose/Rate, Route, Frequency Last Action dextrose 50 % in water IV 25 mL 25 mL, IV, PRN Ordered diclofenac (VOLTAREN) 1 % gel 4 g 4 g, top, QID PRN Ordered glucagon (GLUCAGEN) injection 1 mg 1 mg, IM, PRN Ordered glucose chewable tablet 16 g 16 g, oral, PRN Ordered lactulose (ENULAC) 10 g 15 mL, oral, Q2H PRN Ordered Vitals: Last 24 hour min/max Temp: 36.7 C (98.1 F) Temp Min: 36.3 C (97.3 F) Max: 36.8 C (98.2 F) Pulse: 68 Pulse Min: 47 Max: 68 Resp: 19 Resp Min: 11 Max: 20 BP: 108/66 BP Min: 97/54 Max: 119/59 SpO2: 99 % SpO2 Min: 96 % Max: 99 % Body mass index is 25.1 kg/m. Exam: Gen:NAD Neuro:Noasterixis CV: RRR Pulm: CTAB Abd: Soft, NT,nondistended Ext:R knee ecchymoses with limited ROM Labs: Recent Labs 07/21/1934307/21/19 1643 07/22/19 0529 WBC 3.80 5.29 4.77 HB 7.4* 8.5* 8.0* HCT 21.3* 24.1* 22.9* PLT 25* 27* 28* NEUTROPERC 58.7 -- -- LYMPHPERC 28.4 -- -- MONOPERC 8.7 -- -- BASOPERC 0.5 -- -- EOSPERC 3.2* -- -- Recent Labs 07/17/19200507/18/19 0509 07/20/19 0524 07/21/19 03407/21/19 161 07/21/19 2118 07/22/19 0529 NA 134* -- 136 < > 131* -- 131* -- -- -- 133* K 4.3 -- 4.1 < > 3.8 -- 3.6 -- -- -- 3.7 CL 98 -- 99 < > 99 -- 98 -- -- -- 102 BICARB 31 -- 29 < > 26 -- 24 -- -- -- 24 BUN 48* -- 46* < > 35* -- 39* -- -- -- 38* CR 1.20 -- 1.23 < > 1.60* -- 1.75* -- -- -- 1.56* GLU 257* < > 173* < > 273* < > 175* < > 246* 205* 221* CA 9.4 -- 9.3 < > 8.4* -- 9.1 -- -- -- 8.9 AST 64* -- 66* -- -- -- 81* -- -- -- -- ALT 40 -- 45 -- -- -- 37 -- -- -- -- AP 124 -- 112 -- -- -- 78 -- -- -- -- TBILI 13.4* -- 13.6* -- -- -- 12.3* -- -- -- -- TP 6.8 -- 6.6 -- -- -- 6.6 -- -- -- -- ALB 2.7* -- 2.7* -- -- -- 3.7 -- -- -- -- ANIONGAP 5 -- 8 < > 6 -- 9 -- -- -- 7 ANIONALBCOR 8 -- 11 -- -- -- 9 -- -- -- -- < > = values in this interval not displayed. Labs: Lab Results Component Value Date MG 1.8 07/22/2019 Lab Results Component Value Date INRPT 4.71 (H) 07/21/2019 No results found for: FK506 Imaging and Other Studies: Imaging and Other Studies: 07/19/2019 TTE Final Impressions: 1. The left ventricular size [...] dated 04/21/2019, there are no significant changes. PROCEDURES 07/17/2019 US with Dopplers IMPRESSION: Cirrhotic liver morphology with findings of portal hypertension. Unremarkable Doppler ultrasound without evidence of venous thrombosis. Cholelithiasis without evidence of cholecystitis. MELD-Na score: 38 at 07/22/2019 5:29 AM MELD score: 38 at 07/22/2019 5:29 AM Calculated from: Serum Creatinine: 1.56 mg/dL at 07/22/2019 5:29 AM Serum Sodium: 133 mmol/L at 07/22/2019 5:29 AM Total Bilirubin: 12.3 mg/dL at 07/21/2019 3:44 AM INR(ratio): 4.71 INR at 07/21/2019 3:44 AM Age: 54 years eters, Jovany Gomez MD - 07/22/2019 6:31 AM PDTFormatting of this note might be different from the [facility]. [facility] MEDICAL ICU - PROGRESS NOTE Hospital Day: 5 | ICU Day: 5 ID/CC: Donell Lawson is a 54 y.o. man admitted to the MICU for SVT in setting of ESLD, spur rakel l anemia, iron overload Consultants: cardiology, hepatology, transplant ID 24 Hour Events: - Yesterday summary: continued ? HRS treatment with midodrine and inc octreotide to 200. - Hepatology re-listed on active transplant list. - Floor status. - No overnight events. Subjective: Feels well this morning, no complaints. Mild soreness in R knee. Vital Signs: Cuff BP 107/62 (07/22/19 0800) | BP Min: 97/54 Max: 108/66 Cuff MAP 76 mmHg (07/22/19 0800) | BP Mean Min: 68 mmHg Max: 92 mmHg Art Line BP | No data recorded Art Line MAP | No data recorded HR 61 (07/22/19 0800) | Pulse Min: 47 Max: 68 | Cardiac Rhythm: Normal Sinus Rhythm (12/09) Temp 36.9 C (98.4 F) (07/22/19799) | Temp Min: 36.3 C (97.3 F) Max: 36.9 C (9 8.4 F) RR 16 (07/22/19799) | Resp Min: 11 Max: 20 SpO2 95 % (07/22/19799) | SpO2 Min: 94 % Max: 99 % O2 Device None (room air) (07/22/19799) | Cam/RASS Most Recent Value Overall CAM-ICU Negative RASS Scale 0 CPOT Intake/Output Summary (Last 24 hours) at 07/19/19 07 Last data filed at 07/19/19 0700 Gross per 24 hour Intake 3658.51 ml Output 650 ml Net 3008.51 ml Intake/Output Summary (since admission) at 07/17/19 1813 Last data filed at 07/19/19 1300 Gross for the last 2 days Intake 5753.56 ml Output 1720 ml Net since Admission 4033.56 ml BMI: 25.2 Weights 81.6 kg (180 lb) (07/17/19 2243) 88.1 kg (194 lb 3.2 oz) (07/06/19 1419) Admit Wt: 81.6 kg (180 lb) Physical Exam: Gen: comfortable HEENT: scleral icterus present CV: regular, soft 2/6 systolic murmur Pulm: CTAB, no increased WOB Abd: soft, NT, ND Ext: WWP Neuro: AAO x 3 Laboratories: Recent Labs 07/21/19 0344 07/21/19 1643 07/22/19 0529 WBC 3.80 5.29 4.77 HB 7.4* 8.5* 8.0* HCT 21.3* 24.1* 22.9* MCV 101.4* 101.3* 100.9* PLT 25* 27* 28* NEUTROPHILCO 2.23 -- -- LYMPHSABS 1.08 -- -- MONOCYTECO 0.33 -- -- EOSCO 0.12 -- -- BASOPHILCO 0.02 -- -- IMGRANABS 0.02 -- -- Recent Labs 07/17/19195207/18/19 0509 07/21/19 0344 INRPT 3.40* 3.42* 4.71* APTT 58.2* 54.5* -- FIBRINOGEN 153 148* -- Recent Labs 07/20/19 0524 07/21/19 0344 07/22/19 0529 NA 131* 131* 133* K 3.8 3.6 3.7 CL 99 98 102 BICARB 26 24 24 BUN 35* 39* 38* CR 1.60* 1.75* 1.56* CA 8.4* 9.1 8.9 MG 2.1 1.9 1.8 PO4 -- 3.1 -- ANIONGAP 6 9 7 Recent Labs 07/21/19 1156 07/21/19 1610 07/21/19 2118 07/22/19 0529 07/22/19 0836 GLU 122* 246* 205* 221* 179* Recent Labs 07/21/19 0344 AST 81* ALT 37 TBILI 12.3* AP 78 ALB 3.7 TP 6.6 Recent Labs 07/20/19 0700 TROPONIN 0.12 Lab Orders - In Process (From admission to next 24h) Start Ordered 07/18/19 0945 CULTURE, FUNGAL EXCEPT BLOOD, SKIN, HAIR, NAIL COLLECT NOW, X1 07/18/19 0940 07/17/19 2200 HEMOGLOBIN A1C, BLOOD LAB ADD ON 07/17/19 2146 07/17/191999 CULTURE, BLOOD BACTI & YEAST ONCE 07/17/19195307/17/191999 CULTURE, BLOOD BACTI & YEAST ONCE 07/17/191953 Microbiology: Blood and joint cultures NGTD Current Facility-Administered Medications Medication Dose Route Frequency Last Rate Current Facility-Administered Medications Medication Dose Route Frequency Last Rate [START ON 07/27/2019] amiodarone (CORDARONE) tablet 200 mg 200 mg oral DAILY amiodarone (CORDARONE) tablet 400 mg 400 mg oral TID deferiprone tab 2,000 mg 2,000 mg oral TID insulin lispro (HUMALOG) injection 1-16 Units 1-16 Units subcutaneous QID insulin lispro (HUMALOG) injection 14 Units 14 Units subcutaneous TID W/MEALS insulin NPH (HUMULIN N) injection 20 Units 20 Units subcutaneous BEFORE BREAKFAST AND HS lactulose (ENULAC) 30 g 45 mL oral TID midodrine (PROAMITINE) tablet 15 mg 15 mg oral TID octreotide (SANDOSTATIN) injection 200 mcg 200 mcg intravenous TID rifAXIMin (XIFAXAN) tablet 550 mg 550 mg oral BID Current Facility-Administered Medications Medication Dose Route Frequency Last Rate dextrose 50 % in water IV 25 mL 25 mL intravenous PRN diclofenac (VOLTAREN) 1 % gel 4 g 4 g topical QID PRN glucagon (GLUCAGEN) injection 1 mg 1 mg intramuscular PRN glucose chewable tablet 16 g 16 g oral PRN lactulose (ENULAC) 10 g 15 mL oral Q2H PRN Assessment & Plan: Donell Lawson is a 54 y.o. man admitted to the MICU for SVT in setting of ESLD, spur cell anemi a, iron overload, now resolved and completing amiodarone load. Stable for transfer to floor. #Paroxysmal Supraventricular Tachycardia May be related to myocardial iron deposition. Does not seem to be driven by infection or hy povolemia. Metoprolol was inadequate for control. - Completing amiodarone load - 400 mg PO TID - Plan for maintenance amiodarone dose of 200 mg PO daily (first dose will be 07/27/19) - Cardiology following - Stay on telemetry while hospitalized - K > 4, Mg > 2 #Concern for HRS #KAR #Hypotension Creatinine elevated from prior baseline. In setting of hypotension and kar, concern for HRS . S/p albumin and IVF resuscitation without improvement. KAR improving, down to 1.56 from 1. 75. - Continue midodrine 15 mg TID - Continue octreotide to 200 mcg TID #DecompensatedAlcoholic Cirrhosis #MetabolicEncephalopathy #ESLD #Thrombocytopenia Appears stable. HE resolved with increased bowel regimen. Fully alert and oriented. - Continue lactulose titration 30 grams TID with PRN additional - Continue rifaximin - Hepatology following - re-listed on active transplant list 07/21 #Spur cell anemia #Iron overload While awaiting transplant goal hemoglobin of 8 per hepatology recs. Otherwise more conserva tive transfusion goal. - Continue home deferiprone #Concern for infection Initial concern for infection as cause of trigger of SVT. Workup entirely negative. 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 Transitioned off insulin drip. - NPH 20 BID - Lispro 14 TID WM - Medium SSI #Hyperthyroidism, mild - Unlikely to be driving tachycardia - Outpatient follow up Consultants: Cardiology, hepatology, transplant ID Feeding: PO diet Analgesia: topical diclofenac gel Sedation: None (RASS Goal 0 (alert and calm)) Thromboprophylaxis: SCDs (Pharmacologic ppx contraindicated) Head of Bed: Ad hever Ulcer Prophylaxis: Not indicated Glycemic control: SC insulin Mobility Goal: Ambulate Lines/Tubes/Drains/Airways: PIV x3 Code Status Code Status Full Code Surrogate Decision Maker Documentation: Surrogate Decision Maker Primary Surrogate Decision Maker Doreen norwood [phone] Secondary Surrogate Decision Maker Priyanka Rivera mother This patient was staffed with Dr. Talbot, attending physician. Jovany Mckinley MD Internal Medicine, PGY 1 P: [id number] signed by Jovany Mckinley MD at 07/22/2019 11:11 AM PDTPeters, Jovany Gomez MD - 07/21/2019 11:36 AM PDT [facility] MEDICAL ICU - PROGRESS NOTE Hospital Day: 4 | ICU Day: 4 ID/CC: Donell Lawson is a 54 y.o. man admitted to the MICU for SVT in setting of ESLD, spur rakel l anemia, iron overload Consultants: cardiology, hepatology, transplant ID 24 Hour Events: - Yesterday, stopped antibiotics due to no sign of infection. - Started midodrine and octreotide due to a concern for HRS. - Hepatology had concerns regarding mental status - not ready for transplant (will reassess today) - No overnight events. Subjective: Feeling well this morning. Denies palpations or chest pain during tachy episodes. No compla ints. Vital Signs: Cuff BP 102/68 (07/21/19 1100) | BP Min: 77/54 Max: 119/59 Cuff MAP 75 mmHg (07/21/19 1100) | BP Mean Min: 58 mmHg Max: 79 mmHg Art Line BP | No data recorded Art Line MAP | No data recorded HR 56 (07/21/19 1100) | Pulse Min: 52 Max: 90 | Cardiac Rhythm: Normal Sinus Rhythm ( 11/08 0800) Temp 36.8 C (98.2 F) (07/21/19 0800) | Temp Min: 36.5 C (97.7 F) Max: 36.9 C (9 8.4 F) RR 13 (07/21/19 1100) | Resp Min: 12 Max: 21 SpO2 98 % (07/21/19 1100) | SpO2 Min: 96 % Max: 99 % O2 Device None (room air) (07/21/19 0800) | Cam/RASS Most Recent Value Overall CAM-ICU Negative RASS Scale 0 CPOT Intake/Output Summary (Last 24 hours) at 07/19/19 0700 Last data filed at 07/19/19 0700 Gross per 24 hour Intake 3658.51 ml Output 650 ml Net 3008.51 ml Intake/Output Summary (since admission) at 07/17/19 1813 Last data filed at 07/19/19 1300 Gross for the last 2 days Intake 5753.56 ml Output 1720 ml Net since Admission 4033.56 ml BMI: 25.2 Weights 81.6 kg (180 lb) (07/17/19 2243) 88.1 kg (194 lb 3.2 oz) (07/06/19 1419) Admit Wt: 81.6 kg (180 lb) Physical Exam: Gen: jaundiced but comfortable HEENT: scleral icterus present CV: regular, soft 2/6 systolic murmur Pulm: CTAB, no increased WOB Abd: soft, NT, ND Ext: WWP Neuro: AAO x 3 Laboratories: Recent Labs 07/20/19 1103 07/20/19 1530 07/21/19 0344 WBC 4.35 4.35 3.80 HB 7.2* 7.7* 7.4* HCT 20.8* 22.5* 21.3* MCV 103.5* 100.9* 101.4* PLT 27* 25* 25* NEUTROPHILCO -- -- 2.23 LYMPHSABS -- -- 1.08 MONOCYTECO -- -- 0.33 EOSCO -- -- 0.12 BASOPHILCO -- -- 0.02 IMGRANABS -- -- 0.02 Recent Labs 07/17/19 1953 07/18/19 0509 07/21/19 0344 INRPT 3.40* 3.42* 4.71* APTT 58.2* 54.5* -- FIBRINOGEN 153 148* -- Recent Labs 07/19/19 0013 07/19/19 1356 07/19/19 2022 07/20/19 0524 07/21/19 0344 NA 137 135* 134* 131* 131* K 4.0 4.2 4.1 3.8 3.6 CL 103 100 100 99 98 BICARB 27 28 23 26 24 BUN 36* 36* 35* 35* 39* CR 1.21 1.59* 1.62* 1.60* 1.75* CA 8.8 8.9 8.7 8.4* 9.1 MG 2.7* 2.1 -- 2.1 1.9 PO4 3.0 -- -- -- 3.1 ANIONGAP 7 7 11 6 9 Recent Labs 07/20/19 1538 07/20/19 1748 07/20/19 2048 07/21/19 0344 07/21/19 0752 GLU 223* 203* 189* 175* 169* Recent Labs 07/21/19 0344 AST 81* ALT 37 TBILI 12.3* AP 78 ALB 3.7 TP 6.6 Recent Labs 07/18/19 1803 07/19/19 0013 07/20/19 0700 TROPONIN 0.12 0.11 0.12 Lab Orders - In Process (From admission to next 24h) Start Ordered 07/18/19 0945 CULTURE, FUNGAL EXCEPT BLOOD, SKIN, HAIR, NAIL COLLECT NOW, X1 07/18/19 0940 07/17/19 2200 HEMOGLOBIN A1C, BLOOD LAB ADD ON 07/17/19 2146 07/17/191999 CULTURE, BLOOD BACTI & YEAST ONCE 07/17/19195307/17/191999 CULTURE, BLOOD BACTI & YEAST ONCE 07/17/191953 Microbiology: Blood and joint cultures NGTD Current Facility-Administered Medications Medication Dose Route Frequency Last Rate Current Facility-Administered Medications Medication Dose Route Frequency Last Rate [START ON 07/27/2019] amiodarone (CORDARONE) tablet 200 mg 200 mg oral DAILY amiodarone (CORDARONE) tablet 400 mg 400 mg oral TID deferiprone tab 2,000 mg 2,000 mg oral TID insulin lispro (HUMALOG) injection 1-16 Units 1-16 Units subcutaneous QID insulin lispro (HUMALOG) injection 14 Units 14 Units subcutaneous TID W/MEALS insulin NPH (HUMULIN N) injection 20 Units 20 Units subcutaneous BEFORE BREAKFAST AND HS lactulose (ENULAC) 30 g 45 mL oral TID midodrine (PROAMITINE) tablet 15 mg 15 mg oral TID octreotide (SANDOSTATIN) injection 200 mcg 200 mcg intravenous TID rifAXIMin (XIFAXAN) tablet 550 mg 550 mg oral BID Current Facility-Administered Medications Medication Dose Route Frequency Last Rate dextrose 50 % in water IV 25 mL 25 mL intravenous PRN diclofenac (VOLTAREN) 1 % gel 4 g 4 g topical QID PRN glucagon (GLUCAGEN) injection 1 mg 1 mg intramuscular PRN glucose chewable tablet 16 g 16 g oral PRN lactulose (ENULAC) 10 g 15 mL oral Q2H PRN Assessment & Plan: Donell Lawson is a 54 y.o. man admitted to the MICU for SVT in setting of ESLD, spur cell anemi a, iron overload #Paroxysmal Supraventricular Tachycardia May be related to myocardial iron deposition. Does not seem to be driven by infection or hy povolemia. Metoprolol was inadequate for control. - Completing amiodarone load - 400 mg PO TID - Plan for maintenance amiodarone dose of 200 mg PO daily (first dose will be 07/27/19) - Cardiology following - Stay on telemetry while hospitalized - K > 4, Mg > 2 #Concern for HRS #KAR #Hypotension Creatinine elevated from prior baseline. In setting of hypotension and kar, concern for HRS . S/p albumin and IVF resuscitation without improvement. - Continue midodrine 15 mg TID - Increase octreotide to 200 mcg TID - Will consider levophed (norepinephrine) tomorrow if worsening #DecompensatedAlcoholic Cirrhosis #MetabolicEncephalopathy #ESLD #Thrombocytopenia Appears stable. HE resolved with increased bowel regimen. Fully alert and oriented this mor sanjeev. - Continue lactulose titration 30 grams TID with PRN additional - Continue rifaximin - Hepatology following - will touch base regarding whether or not he is an active transplan t candidate given their concern for his mental status yesterday - If not a candidate, he is medically stable for transfer to floor #Spur cell anemia #Iron overload While awaiting transplant goal hemoglobin of 8 per hepatology recs. Otherwise more conserva tive transfusion goal. - Continue home deferiprone #Concern for infection Initial concern for infection as cause of trigger of SVT. Workup entirely negative. 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 Transitioned off insulin drip. - NPH 20 BID - Lispro 14 TID WM - Medium SSI #Hyperthyroidism, mild - Unlikely to be driving tachycardia - Outpatient follow up Consultants: Cardiology, hepatology, transplant ID Feeding: PO diet Analgesia: topical diclofenac gel Sedation: None (RASS Goal 0 (alert and calm)) Thromboprophylaxis: SCDs (Pharmacologic ppx contraindicated) Head of Bed: Ad hever Ulcer Prophylaxis: Not indicated Glycemic control: SC insulin Mobility Goal: Ambulate Lines/Tubes/Drains/Airways: PIV x2 Code Status Code Status Full Code Surrogate Decision Maker Documentation: Surrogate Decision Maker Primary Surrogate Decision Maker Doreen norwood [phone] Secondary Surrogate Decision Maker Priyanka Rivera mother This patient was staffed with Dr. Talbot, attending physician. Jovany Mckinley MD Internal Medicine, PGY 1 P: [id number] signed by Jovany Mckinley MD at 07/21/2019 12:34 PM DAYNARanAntione MD - 07/21/2019 7:08 AM PDT MICU ATTENDING PROGRESS NOTE Author: Antione Talbot MD Doug is a 54 y.o. male admitted for Afib with RVR. 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 Awake, alert, oriented this morning. Neuro # Encephalopathy likely metabolic. Overall improving. - lactulose and rifaximin Cards # Afib with RVR with baseline low BPs from ESLD made worse with lack of atrial kick. - amiodarone PO - midodrine to increase SVR and cardiac reserve ID No signs of infection. - monitor GI # ESLD. INR worsened today and bili remains high. - status 7 per hepatology Renal # KAR possibly HRS. We will try to normalize macrohemodynamics. - midodrine 15mg TID - octreotide 100mcg TID - albumin supplementation # Hyponatremia likely from renal hypoperfusion in setting of cirrhosis and KAR Heme # Anemia from spur anemia. # Hemachromatosis -deferiprone # Coagulopathy likely from liver failure Endo # DM - SQ insulin Nutrition - encourage PO Dispo: will discuss with hepatology; stable for IMC but if close to transplant then ICU. Antione Talbot MD I personally assessed the patient, performed the tamez elements of the physical examination, and personally formulated the assessment and plan with the MICU resident and the team. See r jeremi note for details. Hospital day # 4. I spent 20 min in critical care. enrique Chapa MD - 2018 6:33 AM PDT Hepatology Inpatient Consult Follow-Up Note Name: Doug Lawson A/P: Mr. 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 Work-up thus far has been unremarkable, including a knee aspirate demonstrating findings most consistent wit h hemarthrosis. His Hgb will intermittently drop which corresponds with his runs of SVT/analilia b, which have been responsive to amiodarone. He's not demonstrated overt GI bleeding so endo scopic work-up for this is unmerited in the setting of known spur cell anemia. Would also cl osely monitor his R knee to r/o worsening hemarthrosis. Cardiac function appears to be compensated and is not a contraindication for transplant (no r is amiodarone); has been titrated to PO amiodarone since yesterday. Transplant infectious disease had also weighed in this past weekend, with no e/o infection/sepsis as etiology of S VT/afib. Briefly placed the patient on status 7 yesterday, given interval worsening of menta l status & concern for infection. However patient's mental status quickly returned to baseli ne without any intervention, and after further discussion with ICU teams suspect that infect ion is not ongoing. Moreover, patient's arrythmia seems to be well controlled with amiodaron e PO (we suspect patient has a susceptibility to electrical conduction abnormality due to hi s underlying myocardial iron overload). Our recommendations are as follows: - no cardiac contraindication to transplant given TTE findings - continue lactulose for 3-5 BM's daily - F/u blood cx, urine cx - anticipate changing status back to listed this afternoon We will continue to follow along with you. Please page with any questions or concerns. This patient was staffed with Dr. Rodriguez, who agrees with above. Henrique Chapa Gastroenterology & Hepatology Fellow Pager: [phone] IE/S: Eating breakfast this morning, mentating well. O: Medications: Medications Scheduled Medication Dose/Rate, Route, Frequency Last Action amiodarone (CORDARONE) tablet 200 mg 200 mg, oral, DAILY Ordered amiodarone (CORDARONE) tablet 400 mg 400 mg, oral, TID Given: 07/20 2142 deferiprone tab 2,000 mg 2,000 mg, oral, TID Given: 07/20 2142 insulin lispro (HUMALOG) injection 1-16 Units 1 Units, subQ, QID Given: 07/20 2136 insulin lispro (HUMALOG) injection 14 Units 14 Units, subQ, TID W/MEALS Given: 07/20 1755 insulin NPH (HUMULIN N) injection 20 Units 20 Units, subQ, BEFORE BREAKFAST AND HS Given: 07/20 2136 lactulose (ENULAC) 30 g 30 g, oral, TID Given: 07/20 2200 midodrine (PROAMITINE) tablet 15 mg 15 mg, oral, TID Given: 07/20 2142 octreotide (SANDOSTATIN) injection 100 mcg 100 mcg, IV, TID Given: 07/20 2200 rifAXIMin (XIFAXAN) tablet 550 mg 550 mg, oral, BID Given: 07/20 2142 PRN Medication Dose/Rate, Route, Frequency Last Action dextrose 50 % in water IV 25 mL 25 mL, IV, PRN Ordered diclofenac (VOLTAREN) 1 % gel 4 g 4 g, top, QID PRN Ordered glucagon (GLUCAGEN) injection 1 mg 1 mg, IM, PRN Ordered glucose chewable tablet 16 g 16 g, oral, PRN Ordered lactulose (ENULAC) 10 g 15 mL, oral, Q2H PRN Ordered Vitals: Last 24 hour min/max Temp: 36.7 C (98.1 F) Temp Min: 36.5 C (97.7 F) Max: 37.1 C (98.7 F) Pulse: 52 Pulse Min: 52 Max: 90 Resp: 15 Resp Min: 12 Max: 21 BP: 99/53 BP Min: 77/54 Max: 107/62 SpO2: 98 % SpO2 Min: 96 % Max: 99 % Body mass index is 25.1 kg/m. Exam: Gen: NAD Neuro: No asterixis CV: RRR Pulm: CTAB Abd: Soft, NT, nondistended Ext: R knee ecchymoses with limited ROM Labs: Recent Labs 07/18/19 0858 07/20/19 1103 07/20/19 1530 07/21/19 034 WBC 8.19 < > 4.35 4.35 3.80 HB 7.8* < > 7.2* 7.7* 7.4* HCT 21.9* < > 20.8* 22.5* 21.3* PLT 34* < > 27* 25* 25* NEUTROPERC 79.8* -- -- -- 58.7 LYMPHPERC 9.4* -- -- -- 28.4 MONOPERC 7.1 -- -- -- 8.7 BASOPERC 0.4 -- -- -- 0.5 EOSPERC 1.6 -- -- -- 3.2* < > = values in this interval not displayed. Recent Labs 07/17/19200507/18/19 0509 07/19/19202107/20/19 0524 07/20/198 07/20/19204707/21/19343 NA 134* -- 136 < > 134* -- 131* -- -- -- 131* K 4.3 -- 4.1 < > 4.1 -- 3.8 -- -- -- 3.6 CL 98 -- 99 < > 100 -- 99 -- -- -- 98 BICARB 31 -- 29 < > 23 -- 26 -- -- -- 24 BUN 48* -- 46* < > 35* -- 35* -- -- -- 39* CR 1.20 -- 1.23 < > 1.62* -- 1.60* -- -- -- 1.75* GLU 257* < > 173* < > 271* < > 273* < > 203* 189* 175* CA 9.4 -- 9.3 < > 8.7 -- 8.4* -- -- -- 9.1 AST 64* -- 66* -- -- -- -- -- -- -- 81* ALT 40 -- 45 -- -- -- -- -- -- -- 37 AP 124 -- 112 -- -- -- -- -- -- -- 78 TBILI 13.4* -- 13.6* -- -- -- -- -- -- -- 12.3* TP 6.8 -- 6.6 -- -- -- -- -- -- -- 6.6 ALB 2.7* -- 2.7* -- -- -- -- -- -- -- 3.7 ANIONGAP 5 -- 8 < > 11 -- 6 -- -- -- 9 ANIONALBCOR 8 -- 11 -- -- -- -- -- -- -- 9 < > = values in this interval not displayed. Labs: Lab Results Component Value Date MG 1.9 07/21/2019 Lab Results Component Value Date INRPT 4.71 (H) 07/21/2019 No results found for: FK506 Imaging and Other Studies: 07/19/2019 TTE Final Impressions: 1. The left ventricular size [...] dated 04/21/2019, there are no significant changes. PROCEDURES 07/17/2019 US with Dopplers IMPRESSION: Cirrhotic liver morphology with findings of portal hypertension. Unremarkable Doppler ultrasound without evidence of venous thrombosis. Cholelithiasis without evidence of cholecystitis. MELD-Na score: 39 at 07/21/2019 3:44 AM MELD score: 39 at 07/21/2019 3:44 AM Calculated from: Serum Creatinine: 1.75 mg/dL at 07/21/2019 3:44 AM Serum Sodium: 131 mmol/L at 07/21/2019 3:44 AM Total Bilirubin: 12.3 mg/dL at 07/21/2019 3:44 AM INR(ratio): 4.71 INR at 07/21/2019 3:44 AM Age: 54 years Stacey Handley MD - 07/20/2019 4:59 PM PDTBrief Hepatology Note Mr. Lawson developed acute mental status changes this afternoon - briefly obtunded without r esponse to noxious stimuli, though did regain consciousness after rigorous stimulation and w ithout focal neurologic deficit. Given acute change, will make patient status 7 for now and repeat infectious work-up. No recurrent AF with rvr since re-initiation of amiodarone gtt. S uspect trigger to be marked anemia, as he has an underlying susceptibility to electrical con duction abnormality due to his underlying myocardial iron overload. Hemarthrosis and hematom a appear stable at this time though will continue to closely monitor given underlying coagul opathy and dropping Hgb. Maryam Baldwin MD [facility] Transplant Hepatology Fellow 5:0 8 PM PDTSatya Teresa MD - 07/20/2019 12:05 PM PDTFormatting of this note might be diffe rent from the original. [facility] MEDICAL ICU - PROGRESS NOTE Hospital Day: 3 | ICU Day: 2 ID/CC: Donell Lawson is a 54 y.o. man admitted to the MICU for SVT in setting of ESLD, spur rakel l anemia, iron overload Consultants: cardiology, hepatology, transplant ID 24 Hour Events: - recurrent SVT overnight, but BP unchanged and pt asymptomatic - IV amiodarone bolus and drip started - SVT resolved - Transfused 2 units Subjective: Feeling well this morning. Denies palpations or chest pain during tachy episodes. Vital Signs: Cuff BP 107/62 (07/20/19 1200) | BP Min: 80/46 Max: 115/96 Cuff MAP 70 mmHg (07/20/19 1200) | BP Mean Min: 54 mmHg Max: 104 mmHg Art Line BP | No data recorded Art Line MAP | No data recorded HR 90 (07/20/19 1200) | Pulse Min: 67 Max: 145 | Cardiac Rhythm: Normal Sinus Rhythm ( 1000) Temp 36.7 C (98.1 F) (07/20/19 0912) | Temp Min: 36.7 C (98.1 F) Max: 37.1 C (9 8.7 F) RR 18 (07/20/19 1200) | Resp Min: 13 Max: 22 SpO2 98 % (07/20/19 1200) | SpO2 Min: 91 % Max: 100 % O2 Device None (room air) (07/20/19 1000) | Cam/RASS Most Recent Value Overall CAM-ICU Negative RASS Scale 0 CPOT 0 (07/20/19 0400) Intake/Output Summary (Last 24 hours) at 07/19/19 0700 Last data filed at 07/19/19 0700 Gross per 24 hour Intake 3658.51 ml Output 650 ml Net 3008.51 ml Intake/Output Summary (since admission) at 07/17/19 1813 Last data filed at 07/19/19 1300 Gross for the last 2 days Intake 5753.56 ml Output 1720 ml Net since Admission 4033.56 ml BMI: 25.2 Weights 81.6 kg (180 lb) (07/17/19 2243) 88.1 kg (194 lb 3.2 oz) (07/06/19 1419) Admit Wt: 81.6 kg (180 lb) Physical Exam: Gen: jaundiced but comfortable HEENT: scleral icterus present CV: regular, soft 2/6 systolic murmur Pulm: CTAB, no increased WOB Abd: soft, NT, ND Ext: WWP Neuro: AAO x 3 Laboratories: Recent Labs 07/17/19 2317 07/18/19 0731 VBGPH 7.37 7.37 VBGPCO2 56* 54* VBGHCO3 32* 30* Recent Labs 07/17/19 1953 07/18/19 0509 07/18/19 0858 07/19/19 1356 07/20/19 0524 07/20/19 1103 WBC 6.47 7.11 8.19 < > 5.73 4.74 4.35 HB 8.8* 9.2* 7.8* < > 6.5* 5.7* 7.2* HCT 25.0* 25.7* 21.9* < > 18.5* 16.7* 20.8* MCV 102.0* 102.8* 103.8* < > 103.4* 104.4* 103.5* PLT 33* 35* 34* < > 31* 26* 27* NEUTROPHILCO 4.85 5.44 6.54 -- -- -- -- LYMPHSABS 0.96* 0.92* 0.77* -- -- -- -- MONOCYTECO 0.50 0.61 0.58 -- -- -- -- EOSCO 0.11 0.08 0.13 -- -- -- -- BASOPHILCO 0.02 0.03 0.03 -- -- -- -- IMGRANABS 0.03 0.03 0.14* -- -- -- -- < > = values in this interval not displayed. Recent Labs 07/16/19 07/17/19195207/18/19 0509 INRPT 2.0* 3.40* 3.42* APTT -- 58.2* 54.5* FIBRINOGEN -- 153 148* Recent Labs 07/17/19200107/18/19 0858 07/19/19 0013 07/19/19 1356 07/19/19202107/20/19 0524 NA -- < > 136 137 135* 134* 131* K -- < > 4.0 4.0 4.2 4.1 3.8 CL -- < > 101 103 100 100 99 BICARB -- < > 30 27 28 23 26 BUN -- < > 42* 36* 36* 35* 35* CR -- < > 1.20 1.21 1.59* 1.62* 1.60* CA -- < > 8.9 8.8 8.9 8.7 8.4* MG 1.8 -- 1.7 2.7* 2.1 -- 2.1 PO4 3.1 -- 2.3* 3.0 -- -- -- ANIONGAP -- < > 5 7 7 11 6 < > = values in this interval not displayed. Recent Labs 07/19/19 1356 07/19/19 1752 07/19/19 1858 07/19/19 2022 07/19/19 2133 07/20/19 0524 07/20/19 1007 07/20/19 1009 GLU 129* 232* 240* 271* 241* 273* 296* 304* Recent Labs 07/17/19200507/18/19 0509 AST 64* 66* ALT 40 45 TBILI 13.4* 13.6* AP 124 112 ALB 2.7* 2.7* TP 6.8 6.6 Recent Labs 07/17/19 2317 07/18/19 0858 07/18/19 1803 07/19/19 0013 07/20/19 0700 LACTICACID 1.8 -- 2.4 -- -- -- -- TROPONIN -- < > 0.11 < > 0.12 0.11 0.12 NTPROBNP -- -- 2,564* -- -- -- -- < > = values in this interval not displayed. Lab Orders - In Process (From admission to next 24h) Start Ordered 07/18/19 0945 CULTURE, FUNGAL EXCEPT BLOOD, SKIN, HAIR, NAIL COLLECT NOW, X1 07/18/19 0940 07/17/19 2200 HEMOGLOBIN A1C, BLOOD LAB ADD ON 07/17/196 07/17/191999 CULTURE, BLOOD BACTI & YEAST ONCE 07/17/19195307/17/191999 CULTURE, BLOOD BACTI & YEAST ONCE 07/17/191953 Microbiology: Blood and joint cultures NGTD Current Facility-Administered Medications Medication Dose Route Frequency Last Rate Current Facility-Administered Medications Medication Dose Route Frequency Last Rate albumin human (BUMINATE, FLEXBUMIN) 25 % injection 75 g 75 g intravenous Q24H Stopped (07/19/191999) [START ON 07/27/2019] amiodarone (CORDARONE) tablet 200 mg 200 mg oral DAILY amiodarone (CORDARONE) tablet 400 mg 400 mg oral TID deferiprone tab 2,000 mg 2,000 mg oral TID insulin lispro (HUMALOG) injection 1-16 Units 1-16 Units subcutaneous QID insulin lispro (HUMALOG) injection 14 Units 14 Units subcutaneous TID W/MEALS insulin NPH (HUMULIN N) injection 20 Units 20 Units subcutaneous BEFORE BREAKFAST AND HS lactulose (ENULAC) 30 g 45 mL oral TID midodrine (PROAMITINE) tablet 15 mg 15 mg oral TID octreotide (SANDOSTATIN) injection 100 mcg 100 mcg intravenous TID rifAXIMin (XIFAXAN) tablet 550 mg 550 mg oral BID Current Facility-Administered Medications Medication Dose Route Frequency Last Rate dextrose 50 % in water IV 25 mL 25 mL intravenous PRN diclofenac (VOLTAREN) 1 % gel 4 g 4 g topical QID PRN glucagon (GLUCAGEN) injection 1 mg 1 mg intramuscular PRN glucose chewable tablet 16 g 16 g oral PRN lactulose (ENULAC) 10 g 15 mL oral Q2H PRN Assessment & Plan: Donell Lawsno is a 54 y.o. man admitted to the MICU for SVT in setting of ESLD, spur cell anemi a, iron overload #Paroxysmal Supraventricular Tachycardia May be related to myocardial iron deposition. Does not seem to be driven by infection or hy povolemia. Metoprolol was inadequate for control -Continue amiodarone load oral to 10 grams, then maintenance amiodarone -Cardiology following -Stay on telemetry while hospitalized -K > 4, Mg > 2 # Concern for HRS # KAR # hypotension Creatinine elevated from prior baseline. In setting of hypotension and kar, concern for HRS . S/p albumin and IVF resuscitation without improvement. -midodrine 15 mg TID -octreotide 100 mcg TID #DecompensatedAlcoholic Cirrhosis #MetabolicEncephalopathy #ESLD #Thrombocytopenia Appears stable. HE resolved with increased bowel regimen. -Continue lactulose titration 30 grams TID with PRN additional -Continue rifaximin -Hepatology following # Spur cell anemia # Iron overload While awaiting transplant goal hemoglobin of 8 per hepatology recs. Otherwise more conserva tive transfusion goal. -continue home deferiprone #Concern for infection Initial concern for infection as cause of trigger of SVT. Workup entirely negative. 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 Transitioned off insulin drip. -NPH 20 BID -Lispro 14 TID WM -Medium SSI #Hyperthyroidism, mild -unlikely to be driving tachycardia -outpatient follow up Consultants: Cardiology, hepatology, transplant ID Feeding: NPO Analgesia: topical diclofenac gel Sedation: None (RASS Goal 0 (alert and calm)) Thromboprophylaxis: SCDs (Pharmacologic ppx contraindicated) Head of Bed: Ad hever Ulcer Prophylaxis: Not indicated Glycemic control: SC insulin Mobility Goal: Ambulate Lines/Tubes/Drains/Airways: PIV x2 Code Status Code Status Full Code Surrogate Decision Maker Documentation: Surrogate Decision Maker Primary Surrogate Decision Maker Doreen norwood [phone] Secondary Surrogate Decision Maker Priyanka Rivera mother This patient was staffed with Dr. Talbot, attending physician. Satya Teresa MD Internal Medicine Resident Antione Viatl MD - 07/20/2019 11:49 AM PDT MICU ATTENDING PROGRESS NOTE Author: Antione Talbot MD Doug is a 54 y.o. male admitted for Afib with RVR. Also present on admission is spur cell anemia complicating secondary hemachromatosis, cirrhosis, and KAR. Neuro # Pain / Sedation - lactulose and rifaximin Cards # Afib with RVR. BP is low during these episodes but it is low even when he's in sinus rhyt hm. Likely driven by cirrhosis and low SVR as well as driven by hemachromatosis and iron dep osition. - amiodarone PO - dc metoprolol while hypotensive - add midodrine to increase SVR and cardiac reserve ID # Possible sepsis. ID following - dc abx Renal # KAR possibly HRS. We will try to normalize macrohemodynamics. - midodrine 15mg TID - octreotide 100mcg TID - albumin supplementation Heme # Anemia likely from destruction. Hepatology asking for Hg > 8 while in pre-transplant phas e - transfuse for goal Hg > 8 # Hemachromatosis -deferiprone Endo # DM - SQ insulin Nutrition - NPO in preparation for surgery Antione Talbot MD I personally assessed the patient, performed the tamez elements of the physical examination, and personally formulated the assessment and plan with the MICU resident and the team. See r jeremi note for details. Hospital day # 3. I spent 20 min in critical care. Henrique Krishna MD - 2018 7:23 AM PDT Hepatology Inpatient Consult Follow-Up Note Name: Doug Lawson A/P: IMPRESSION Mr. 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 Work-up thus far has been unremarkable, including a knee aspirate demonstrating findings most consistent wit h hemarthrosis. . He's been persistently anemic which may be contributing to his SVTs; he's not demonstrated overt GI bleeding so endoscopic work-up for this is unmerited in the settin g of known spur cell anemia. Would also closely monitor his R knee to r/o worsening hemarthr osis. Cardiac function appears to be compensated and is not a contraindication for transplant (no r is amiodarone); has continued to have intermittent SVT requiring amiodarone GTT (which pat ient is still on). In addition, his interval exam this afternoon showed worsening mental sta tus: was initially arousable to noxious stimuli but eventually became more alert and was fol lowing commands. Blood cultures are negative at 48 hours. Ttransplant infectious disease had also weighed in this past weekend, with no e/o infection/sepsis as etiology of SVT/afib. Ho wever, given his interval exam, we would recommend repeating the infectious workup with bloo d cx, urine cx, CXR. While active infection is being ruled out with ongoing intermittent SVT , we will place the patient on status 7 and follow-up infectious studies and clinical status . RECOMMENDATIONS - no cardiac contraindication to transplant given TTE findings - continue lactulose for 3-5 BM's daily - F/u blood cx, urine cx, CXR Thank you for this consult; we will continue to follow. This plan was discussed and formula jeannette with the gastroenterology attending, Dr. Michael Chapa Gastroenterology and Hepatology Fellow [id number] IE/S: Had SVT overnight requiring amiodarone GTT which spontaneously converted to NSR. Was mor e awake this morning; however in the afternoon, was more somnolent and responsive to noxious stimuli. O: Medications: Medications Continuous Medication Dose/Rate, Route, Frequency Last Action amiodarone (CORDARONE) 900 mg in dextrose 5 % 500 mL (1.8 mg/mL) IV infusion 1 mg/min, 33. 33 mL/hr, IV, CONTINUOUS New Ba/30 0128 Scheduled Medication Dose/Rate, Route, Frequency Last Action albumin human (BUMINATE, FLEXBUMIN) 25 % injection 75 g 0 g, 0 mL/hr, IV, Q24H Stopped: 1999 deferiprone tab 2,000 mg 2,000 mg, oral, TID Given: 07/19 2137 insulin lispro (HUMALOG) injection 1-16 Units 2 Units, subQ, QID Given: 07/19 2213 insulin lispro (HUMALOG) injection 10 Units 10 Units, subQ, TID W/MEALS Given: 07/19 1925 insulin NPH (HUMULIN N) injection 18 Units 18 Units, subQ, BEFORE BREAKFAST AND HS Given: 07/20 520 lactulose (ENULAC) 30 g 30 g, oral, TID Given: 07/19 2138 metoprolol tartrate (LOPRESSOR) tablet 6.25 mg 6.25 mg, oral, Q6H Given: 07/20 520 piperacillin-tazobactam (ZOSYN) IV (minibag+) 3.375 g 3.375 g, IV, Q8H New Ba07/20 520 potassium chloride SR (K-DUR) tablet 20 mEq 20 mEq, oral, ONCE Ordered propofol (DIPRIVAN) injection No Dose/Rate, Ordered rifAXIMin (XIFAXAN) tablet 550 mg 550 mg, oral, BID Given: 07/19 2010 PRN Medication Dose/Rate, Route, Frequency Last Action dextrose 50 % in water IV 25 mL 25 mL, IV, PRN Ordered diclofenac (VOLTAREN) 1 % gel 4 g 4 g, top, QID PRN Ordered glucagon (GLUCAGEN) injection 1 mg 1 mg, IM, PRN Ordered glucose chewable tablet 16 g 16 g, oral, PRN Ordered lactulose (ENULAC) 10 g 15 mL, oral, Q2H PRN Ordered Vitals: Last 24 hour min/max Temp: 37.1 C (98.7 F) Temp Min: 36.8 C (98.2 F) Max: 37.1 C (98.7 F) Pulse: 71 Pulse Min: 69 Max: 145 Resp: 16 Resp Min: 13 Max: 22 BP: 99/58 BP Min: 77/40 Max: 115/96 SpO2: 98 % SpO2 Min: 91 % Max: 100 % Body mass index is 25.1 kg/m. Exam: Gen: Somnolent Neuro: No asterixis CV: RRR Pulm: CTAB Abd: Soft, NT, nondistended Ext: R knee ecchymoses with limited ROM Labs: Recent Labs 07/17/19195207/18/1950807/18/1985707/19/1952 07/19/19135507/20/19 0524 WBC 6.47 7.11 8.19 < > 7.00 5.73 4.74 HB 8.8* 9.2* 7.8* < > 7.6* 6.5* 5.7* HCT 25.0* 25.7* 21.9* < > 21.3* 18.5* 16.7* PLT 33* 35* 34* < > 37* 31* 26* NEUTROPERC 75.0* 76.6* 79.8* -- -- -- -- LYMPHPERC 14.8* 12.9* 9.4* -- -- -- -- MONOPERC 7.7 8.6 7.1 -- -- -- -- BASOPERC 0.3 0.4 0.4 -- -- -- -- EOSPERC 1.7 1.1 1.6 -- -- -- -- < > = values in this interval not displayed. Recent Labs 04/24/1942007/16/19 07/17/19200507/18/1950807/19/19135507/19/19202107/19/19213207/20/19 0524 NA 131* < > 128* -- 134* -- 136 < > 135* -- 134* -- 131* K 4.6 < > 4.5 -- 4.3 -- 4.1 < > 4.2 -- 4.1 -- 3.8 CL 99 -- -- -- 98 -- 99 < > 100 -- 100 -- 99 BICARB 25 -- -- -- 31 -- 29 < > 28 -- 23 -- 26 BUN 43* < > 48* -- 48* -- 46* < > 36* -- 35* -- 35* CR 1.20 < > 1.98* -- 1.20 -- 1.23 < > 1.59* -- 1.62* -- 1.60* GLU 115* < > 447* < > 257* < > 173* < > 129* < > 271* 241* 273* CA 8.6 -- -- -- 9.4 -- 9.3 < > 8.9 -- 8.7 -- 8.4* AST 69* < > 66* -- 64* -- 66* -- -- -- -- -- -- ALT 40 < > 45 -- 40 -- 45 -- -- -- -- -- -- AP 151* < > 157* -- 124 -- 112 -- -- -- -- -- -- TBILI 9.9* < > 15.0* -- 13.4* -- 13.6* -- -- -- -- -- -- TP 6.7 -- -- -- 6.8 -- 6.6 -- -- -- -- -- -- ALB 2.5* < > 3.3* -- 2.7* -- 2.7* -- -- -- -- -- -- ANIONGAP 7 -- -- -- 5 -- 8 < > 7 -- 11 -- 6 ANIONALBCOR 10 -- -- -- 8 -- 11 -- -- -- -- -- -- < > = values in this interval not displayed. Labs: Lab Results Component Value Date MG 2.1 07/20/2019 Lab Results Component Value Date INRPT 3.42 (H) 07/18/2019 No results found for: FK506 Imaging and Other Studies: 07/19/2019 TTE Final Impressions: 1. The left ventricular size [...] dated 04/21/2019, there are no significant changes. PROCEDURES 07/17/2019 US with Dopplers IMPRESSION: Cirrhotic liver morphology with findings of portal hypertension. Unremarkable Doppler ultrasound without evidence of venous thrombosis. Cholelithiasis without evidence of cholecystitis. MELD-Na score: 36 at 07/20/2019 5:24 AM MELD score: 35 at 07/20/2019 5:24 AM Calculated from: Serum Creatinine: 1.60 mg/dL at 07/20/2019 5:24 AM Serum Sodium: 131 mmol/L at 07/20/2019 5:24 AM Total Bilirubin: 13.6 mg/dL at 07/18/2019 5:09 AM INR(ratio): 3.42 INR at 07/18/2019 5:09 AM Age: 54 years Josue Reno MD - 07/19/2019 4:35 PM PDTMICU Attending Note I have rounded with the critical care team and personally reviewed Doug Lawson's a vailable data, including medical history, significant events, physical examination and test results. I agree with the MICU team's assessment and documentation and have participated in the creation of today's plan of care, with additions or exceptions as noted. Ht 1.803 m (5' 11"), Wt 81.6 kg (180 lb), BP 82/42, Pulse 73, Temperature 37.1 C (98.7 F), Temperature source Oral, RR 16, SpO2 95%, BMI 25.1 kg/(m^2). Facility age limit for [facility] percentiles is 18 years. Body mass index is 25.1 kg/m. 1. The left ventricular size is normal. [...] dated 04/21/2019, there are no significant changes. Critical Diagnoses Cirrhosis SVT etoh abuse Knee hemarthrosis KAR hyperbili Iron overload Tox/met encephalopathy Anemia NOS thrombocytopenia hyperthyroidsim hyponatremia Assessment/Plan Stopped amiodarone Started metoprolol High on liver tx list Follow cultures, cont zosyn for now per transplant ID Cont lactulose/rifaximine hepatology following Insulin drip Continue iron chelation Josue Montano MD, MA, [facility] [employer] Division of Pulmonary & Critical Care Medicine Pager: [phone] Critical Care Time: I spent 8 minutes in the care and magagement of this patient who is cri tically ill (managing issues that acutely impair one or more vital organ systems such that t here is a high probability of imminent or life threatening deterioration in the patient's co ndition). eters, He Dowd MD - 07/19/2019 1:38 PM PDTFormatting of this note might be different from the origin al. [facility] MEDICAL ICU - PROGRESS NOTE Hospital Day: 2 | ICU Day: 2 ID/CC: Donell Lawson is a 54 y.o. man admitted to the MICU for unstable atrial fibrillation. Consultants: cardiology, hepatology, transplant ID 24 Hour Events: - Resuscitated with IVF and albumin 07/18 - Amiodarone load (bolus + 24 hr drip) complete - TTE wnl - R knee arthrocentesis c/w hemarthrosis; no evidence of septic joint Subjective: Patient reports feeling better this morning, still mildly confused. Reports R knee soreness and mild low back pain. Offered lidocaine patch for back pain, but patient declined. Vital Signs: Cuff BP (!) 77/40 (07/19/19 1100) | BP Min: 77/40 Max: 104/79 Cuff MAP 52 mmHg (07/19/19 1100) | BP Mean Min: 52 mmHg Max: 86 mmHg Art Line BP | No data recorded Art Line MAP | No data recorded HR 76 (07/19/19 1100) | Pulse Min: 62 Max: 90 | Cardiac Rhythm: Normal Sinus Rhythm (06/22 07/09 1200) Temp 37.1 C (98.7 F) (07/19/19 1200) | Temp Min: 36.6 C (97.9 F) Max: 37.1 C (9 8.8 F) RR 18 (07/19/19 1100) | Resp Min: 11 Max: 19 SpO2 98 % (07/19/19 1100) | SpO2 Min: 91 % Max: 100 % O2 Device None (room air) (07/19/19 1200) | Cam/RASS Most Recent Value Overall CAM-ICU Negative RASS Scale 0 CPOT 4 (07/19/19 1200) Intake/Output Summary (Last 24 hours) at 07/19/19 0700 Last data filed at 07/19/19 0700 Gross per 24 hour Intake 3658.51 ml Output 650 ml Net 3008.51 ml Intake/Output Summary (since admission) at 07/17/19 1813 Last data filed at 07/19/19 1300 Gross for the last 2 days Intake 5753.56 ml Output 1720 ml Net since Admission 4033.56 ml BMI: 25.2 Weights 81.6 kg (180 lb) (07/17/19 2243) 88.1 kg (194 lb 3.2 oz) (07/06/19 1419) Admit Wt: 81.6 kg (180 lb) Physical Exam: Gen: jaundiced but comfortable HEENT: scleral icterus present CV: regular rate and rhythm, systolic ejection murmur, peripheral pulses intact and symmetr ic Pulm: CTAB, no increased WOB Abd: soft, NT, ND, bowel sounds present Ext: R knee swollen, warm, purple/red bruise, minimal LE edema Skin: spider angioma on upper chest, dry scaling skin on BLEs Laboratories: Recent Labs 07/17/19 2317 07/18/19 0731 VBGPH 7.37 7.37 VBGPCO2 56* 54* VBGHCO3 32* 30* Recent Labs 07/17/19 1953 07/18/19 0509 07/18/19 0858 07/18/19 1803 07/19/19 0001 07/19/19 0552 WBC 6.47 7.11 8.19 < > 5.98 5.19 7.00 HB 8.8* 9.2* 7.8* < > 7.7* 7.2* 7.6* HCT 25.0* 25.7* 21.9* < > 22.2* 20.2* 21.3* MCV 102.0* 102.8* 103.8* < > 104.7* 103.1* 104.9* PLT 33* 35* 34* < > 32* 32* 37* NEUTROPHILCO 4.85 5.44 6.54 -- -- -- -- LYMPHSABS 0.96* 0.92* 0.77* -- -- -- -- MONOCYTECO 0.50 0.61 0.58 -- -- -- -- EOSCO 0.11 0.08 0.13 -- -- -- -- BASOPHILCO 0.02 0.03 0.03 -- -- -- -- IMGRANABS 0.03 0.03 0.14* -- -- -- -- < > = values in this interval not displayed. Recent Labs 07/16/19 07/17/19195207/18/19 0509 INRPT 2.0* 3.40* 3.42* APTT -- 58.2* 54.5* FIBRINOGEN -- 153 148* Recent Labs 07/17/19200107/18/19 0509 07/18/19 0858 07/19/19 0013 NA -- < > 136 136 137 K -- < > 4.1 4.0 4.0 CL -- < > 99 101 103 BICARB -- < > 29 30 27 BUN -- < > 46* 42* 36* CR -- < > 1.23 1.20 1.21 CA -- < > 9.3 8.9 8.8 MG 1.8 -- -- 1.7 2.7* PO4 3.1 -- -- 2.3* 3.0 ANIONGAP -- < > 8 5 7 < > = values in this interval not displayed. Recent Labs 07/19/19 0439 07/19/19 0549 07/19/19 0707 07/19/19 0811 07/19/19 0853 07/19/19 0939 07/19/19 1204 07/19/19 1312 GLU 170* 144* 156* 151* 166* 160* 172* 132* Recent Labs 07/17/19200507/18/19 0509 AST 64* 66* ALT 40 45 TBILI 13.4* 13.6* AP 124 112 ALB 2.7* 2.7* TP 6.8 6.6 Recent Labs 07/17/19 2317 07/18/19 0858 07/18/19 1317 07/18/19 1803 07/19/19 0013 LACTICACID 1.8 -- 2.4 -- -- -- TROPONIN -- < > 0.11 0.13 0.12 0.11 NTPROBNP -- -- 2,564* -- -- -- < > = values in this interval not displayed. Lab Orders - In Process (From admission to next 24h) Start Ordered 07/18/19 0945 CULTURE, FUNGAL EXCEPT BLOOD, SKIN, HAIR, NAIL COLLECT NOW, X1 07/18/19 0940 07/17/19 2200 HEMOGLOBIN A1C, BLOOD LAB ADD ON 07/17/19 2146 07/17/191999 CULTURE, BLOOD BACTI & YEAST ONCE 07/17/19195307/17/191999 CULTURE, BLOOD BACTI & YEAST ONCE 07/17/191953 Microbiology: Blood culture x2 07/17 - NGTD Urine culture 07/17 Insignificant growth R knee arthocentesis Fungal culture - NGTD Gram stain - no organisms seen, WBCs present Imaging: CXR 07/18: Mild subsegmental basilar atelectasis. Lungs otherwise clear. Knee XR, 2 view 07/18: Soft tissue swelling about the anterior aspect of the knee and small knee effusion. Old hea led fracture deformities of the proximal tibia and fibula with intact tibial screws. No acut e osseous abnormality. Ultrasound liver with Doppler 07/17: Cirrhotic liver morphology with findings of portal HTN Unremarkable Doppler ultrasound without evidence of venous thrombosis Cholelithiasis without evidence of cholecystitis EKG/Echocardiogram: EKG 07/18 sinus tachycardia with rate 137 bpm Current Facility-Administered Medications Medication Dose Route Frequency Last Rate insulin regular in NaCl 0.9% IV infusion (1 unit/mL) 0.1-50 Units/hr intravenous ROSETTE NUOUS Current Facility-Administered Medications Medication Dose Route Frequency Last Rate deferiprone tab 2,000 mg 2,000 mg oral TID insulin lispro (HUMALOG) injection 1-16 Units 1-16 Units subcutaneous QID insulin lispro (HUMALOG) injection 10 Units 10 Units subcutaneous TID W/MEALS insulin NPH (HUMULIN N) injection 18 Units 18 Units subcutaneous BEFORE BREAKFAST AND HS lactulose (ENULAC) 30 g 45 mL oral TID metoprolol tartrate (LOPRESSOR) tablet 6.25 mg 6.25 mg oral Q6H piperacillin-tazobactam (ZOSYN) IV (minibag+) 3.375 g 3.375 g intravenous Q8H 0 g ( 1045) rifAXIMin (XIFAXAN) tablet 550 mg 550 mg oral BID Current Facility-Administered Medications Medication Dose Route Frequency Last Rate dextrose 50 % in water IV 25 mL 25 mL intravenous PRN diclofenac (VOLTAREN) 1 % gel 4 g 4 g topical QID PRN glucagon (GLUCAGEN) injection 1 mg 1 mg intramuscular PRN glucose chewable tablet 16 g 16 g oral PRN lactulose (ENULAC) 10 g 15 mL oral Q2H PRN Assessment & Plan: Donell Lawson is a 54 y.o. man admitted to the MICU for unstable atrial fibrillation which has now resolved after IVF and albumin resuscitation and amiodarone load. #Paroxysmal Supraventricular Tachycardia - resolved #Paroxysmal Atrial Fibrillation, unstable - resolved Completed amiodarone loading with bolus + drip for 24 hours. Received IVF and albumin resus citation 07/18. Has not been in atrial fibrillation since 07/18 per telemetry review. Rates co ntrolled in 70-90s bpm. Blood pressures improved with MAP >70. - Albumin 5% 25 grams given 07/18 - 500 mL LR given 07/18 - TTE 07/18 - wnl -Amiodarone IV load complete (bolus + drip); drip now stopped - Re-starting metoprolol at equivalent to home dose (metoprolol 6.25 mg PO Q6H) - Cardiology following; appreciate recommendations #DecompensatedAlcoholic Cirrhosis #MetabolicEncephalopathy #On liver transplant list #Concern for infection Patient on transplant list. Concern for possible infection vs lactulose non-adheranceprio r to admission. Had 3 BM yesterday, taking lactulose here. Mental status improving. Hepatolo gy following and recommended official transplant ID consult to rule out ongoing infection as patient is on liver transplant list and infection would be barrier to transplant. Blood cul tures 07/17 NGTD. Had been started on vancomycin and zosyn 07/17. Will d/c vancomycin, but con tinue zosyn. Can dc zosyn 07/20 at 8 pm as long as cultures remain negative, per transplant I D. - Increased lactulose to 30 g TID with BM goal of 3-5 daily & 10 g Q2H PRN - Rifaximin 550 mg PO BID - Hepatology following - Transplant ID following - Blood cultures NGTD - Discontinue vancomycin - Continue zosyn - plan to discontinue on 07/20 at 8 pm if cultures remain negative #Diabetes Mellitus #Hyperglycemia Patient presented with hyperglycemia - new diagnosis of DM. Had been on insulin drip, but n ow will transition to subQ. - NPH 20 units BID - Humalog 10 units TID with meals + moderate SSI #Hyperthyroidism He does not have a history of hyperthyroidism as far as I can tell from his chart. TSH is v kenneth mildly low 0.47 and free T4 is elevated to 1.6. I suspect that this hyperthyroid state i s contributing to his SVT/Afib with RVR. Will not start any treatment at this time while we focus on stabilizing his blood pressures and heart rates. - No treatment - F/u with PCP as outpatient #Right Knee Trauma Pt with fall from ground level onto right knee with edematous, painful knee with surroundin g ecchymoses. Orthopedics performed arthrocentesis - results c/w hemarthrosis. No evidence o f septic joint. #KAR on CKD Pt with KAR at OSH with Cr elevated to 1.95. This is likely 2/2 to pre-renal etiology given unknown length of time with worsening encephalopathy and likely poor po intake. If not reso lving, concern for HRS as well. Will trend BMPs. Anticipate improvement with fluid resuscita tion and improved cardiac output once we normalize heart rates and blood pressures improve. #Hyponatremia #Protein-Calorie Malnutrition Likely 2/2 ESLD. Continue to monitor while inpatient. Hepatology following. Consultants: Cardiology, hepatology, transplant ID Feeding: PO diet Analgesia: topical diclofenac gel Sedation: None (RASS Goal 0 (alert and calm)) Thromboprophylaxis: SCDs (Pharmacologic ppx contraindicated) Head of Bed: Ad hever Ulcer Prophylaxis: Not indicated Glycemic control: SC insulin Mobility Goal: Ambulate Lines/Tubes/Drains/Airways: PIV x2 Code Status Code Status Full Code Surrogate Decision Maker Documentation: Surrogate Decision Maker Primary Surrogate Decision Maker Doreen norwood [phone] Secondary Surrogate Decision Maker Priyanka Rivera mother This patient was staffed with Dr. Rice, attending physician. Jovany Mckinley MD 07/19/2019, 1:39 PM Template created by Autumn 2017 Wm, Chriss Leyva MD - 07/19/2019 11:19 AM PDTMICU Attending Addendum I performed a history and physical examination of the patient and discussed her management with the resident. I reviewed the resident s note and agree with the documented findings and plan of care. DX; ETOh Cirhosis, AFIb with RVR, KAR Hemarthrosis of knee A and o X2 1. Cont meds for hepatic encphalopathy .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 tablet Sig: Take 2 tablets by mouth two times daily. lactulose 10 gram/15 mL oral solution Sig: Take 15 mL by mouth two times daily. metoprolol succinate 50 mg oral tablet extended release 24 hr Sig: Take 0.5 tablets by mouth once daily. spironolactone 100 mg oral tablet Sig: Take 1 tablet by mouth once daily. Facility-Administered Medications: None Allergies Allergen Reactions Doxycycline Hives and Rash Family History Problem Relation Liver cancer Neg Hx Social History Socioeconomic History Marital status: Single [...] Smokeless tobacco: Former User Types: Chew Substance and Sexual Activity Alcohol use: No Frequency: Never Drug use: No Sexual activity: Not on file Lifestyle Physical activity: Days per week: Not on file Minutes per session: Not on file Stress: Not on file Relationships Social connections: Talks on phone: Not on file Gets together: Not on file Attends mormon service: Not on file Active member of club or organization: Not on file Attends meetings of clubs or organizations: Not on file Relationship status: Not on file Other Topics Concern Not on file Social History Narrative Not on file Review of Systems: ROS as noted. All other systems negative. Last Vitals: BP 109/52 | Pulse 71 | Temp 36.5 C (97.7 F) (Oral) | Resp 16 | Ht 1.80 3 m (5' 11") | Wt 98.2 kg (216 lb 7.9 oz) | SpO2 100% | BMI 30.19 kg/m | BSA 2.22 m 24 Hour Vital Min/Max: Systolic (24hrs), Av , Min:99 , Max:114 Diastolic (24hrs), Av, Min:47, Max:55 Pulse Min: 61 Max: 71 Temp Min: 36.5 C (97.7 F) Max: 36.9 C (98.4 F) Resp Min: 16 Max: 18 SpO2 Min: 100 % Max: 100 % General: Alert and oriented, No acute distress, lying in bed, comfortable HENT: Normocephalic, atraumatic, oral mucosa is moist Eye: Extraocular movements are intact, scleral icterus present Respiratory: Respirations are non-labored on RA Cardiovascular: Well-perfused Gastrointestinal: Soft, non-tender, non-distended. No appreciable ascites. Integumentary: Warm, Dry, hyperpigmented bronze colored skin Neurologic: Alert, Oriented. Musculoskeletal: Normal range of motion, No deformity. Gabo wraps around lower extremities i n lieu of JEANNETTE duenas. Psychiatric: Cooperative. Data Recent Labs 08/13/19 0441 08/14/19 0547 08/15/19 0454 08/15/19 0639 08/15/19 0741 08/15/19 1503 NA 135* -- 135* -- 134* -- -- 135* K 4.3 -- 4.6 -- 4.6 -- -- 4.5 CL 106 -- 107 -- 107 -- -- 106 BICARB 20* -- 23 -- 19* -- -- 23 BUN 62* -- 62* -- 60* -- -- 56* CR 1.22 -- 1.16 -- 1.18 -- -- 1.12 GLU 208* < > 144* < > 197* 202* 227* 103* CA 9.1 -- 8.6 -- 8.2* -- -- 8.6 PO4 3.5 -- 3.5 -- 3.2 -- -- -- < > = values in this interval not displayed. Recent Labs 08/14/1954608/15/1945308/15/19 1503 AST 91* 93* 99* ALT 57 53 55 TBILI 11.7* 11.0* 11.5* AP 211* 222* 250* ALB 3.0* 2.8* 3.0* TP 6.5 6.2* 6.7 Recent Labs 08/15/19 1503 AMYLASEPLAS 34 Recent Labs 08/14/19 0547 08/15/1945308/15/19 1504 WBC 4.37 4.69 5.67 HB 7.1* 6.7* 6.8* HCT 22.0* 21.0* 21.1* PLT 60* 59* 60* NEUTROPERC -- -- 73.0* LYMPHPERC -- -- 14.3* MONOPERC -- -- 10.2* BASOPERC -- -- 0.4 EOSPERC -- -- 1.6 Recent Labs 08/13/19 0441 08/14/19 0547 08/15/1945308/15/19 1502 INRPT 3.59* 3.52* 3.46* 3.24* APTT 72.3* 72.5* 73.6* -- FIBRINOGEN 129* 133* 136* 141* Assessment and Plan: Doug Lawson is a(n) 54 y.o. 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 He will possibly go to the [place] [facility] for a liver transplant if the donor organ is found to be suitable. - NPO - Transplant work-up ordered: Labs, CXR, EKG, Infectious work-up - Estimated time of case: 11PM, will update the team once more information is obtained - Consent obtained for procedure, PARQ session held with patient, mother, and sister discus sing risks, benefits and indication for the procedure. Sushila Eldridge MD,MPH Abdominal Transplant Surgery Pager: [phone] Associated attestation - Marsha Garcia MD - 08/17/2019 3:03 PM PDTPlease see my full no te regarding risk/benefit discussion I saw and evaluated the patient. I agree with the findings and the plan of care as documen jeannette in the resident s note. MARSHA GARCIA MD [address] [place] [address] Julian Feliciano MD - 07/22/2019 1:16 PM PDT Internal Medicine History and Physical Attending Physician: Dr. Donell Cr ID/CC:Donell Lawson is a 54 year old male with a history of alcoholic cirrhosis complicated b y ascites, spur cell anemia, and secondary iron overload listed for liver transplant, and a history of SVT after dobutamine stress test who was admitted to the MICU for unstable atrial fibrillation with RVR. HPI: Donell Lawson is a 54 yo male with a history of ESLD (MELD 38 07/22/19) 2/2 alcoholic cirrhosis, leg edema, spur cell anemia, and secondary iron overload listed for liver transplant who wa s transferred from [facility] with AMS and new onset hyperglycemia, trauma to R knee after a fall, and renal insufficiency. He was transferred to the MICU for unstable atri al fibrillation with RVR into 180s and blood pressures 80s/50s. On arrival to MICU, patient was in unstable Afib with RVR (rates 160s) with blood pressures in 70s/50s. Bedside ultrasound showed flat IVC at clavicle at 10 degrees and underfilling L V, indicating need for fluid resuscitation. Patient was resuscitated with LR and albumin and started on an amiodarone load (bolus --> drip). Rate control achieved with fluids and amiod arone. HD stable with MAP >70. Amiodarone drip stopped after 24 hours, but restarted oral am iodarone 07/20 because home metoprolol not sufficiently controlling HR. Currently continuing loading dose, will convert to maintenance dose 07/27. When seen at bedside, Mr. Lawson is in good spirits and has no new complaints. He is somewha t slow to respond to some questions, but is ultimately able to do so with repeated questioni ng. States his only pain is in his R knee from when he initially fell while at home. Denies chest pain, palpitations, abdominal pain, sob, headache, vision changes, or new rash/skin ch anges. Denies feeling any more confused than normal. AAOx3, able to recite days of week forw ards and backwards. 2 BMs so far today. Past Medical History: I have updated the Problem List with the patient's relevant diagnoses. Past Medical History Alcoholic cirrhosis of liver with ascites (HCC) Chronic kidney disease Hepatorenal syndrome (HCC) Abnormal echocardiogram Cirrhosis (HCC) CKD (chronic kidney disease) SVT (supraventricular tachycardia) (HCC) Paroxysmal A-fib (HCC) Chronic kidney disease, unspecified CKD stage Asymptomatic microscopic hematuria Left nephrolithiasis Overview 05/19/2019: asymptomatic 4 mm left renal stone I have updated the Medical History with the patient's relevant diagnoses: Past Medical History: Diagnosis Date Cirrhosis (HCC) CKD (chronic kidney disease) Review of Systems: All other systems negative. ROS otherwise normal. Home Medications: I have obtained and documented the prior to admission medication list and it is accurate. Prior to Admission Medications Prescriptions deferiprone 500 mg oral tablet Sig: Take 4 tablets (2,000mg) by mouth three times daily. Patient not taking: Reported on 07/06/2019 furosemide 20 mg oral tablet Sig: Take 2 tablets by mouth two times daily. lactulose 10 gram/15 mL oral solution Sig: Take 15 mL by mouth two times daily. metoprolol succinate 50 mg oral tablet extended release 24 hr Sig: Take 0.5 tablets by mouth once daily. spironolactone 100 mg oral tablet Sig: Take 1 tablet by mouth once daily. Facility-Administered Medications: None Allergies I have reviewed and updated the allergy list. Allergies Allergen Reactions Doxycycline Hives and Rash Social History I have updated the Social Hx as appropriate. Social History Tobacco Use Smoking status: Never Smoker Smokeless tobacco: Former User Types: Chew Substance Use Topics Alcohol use: No Frequency: Never Social History Social History Narrative Not on file Family History I have updated the Family Hx as appropriate. Family History Problem Relation Liver cancer Neg Hx Physical Exam: Last 24 hour min/max Temp: 36.8 C (98.2 F) Temp Min: 36.3 C (97.3 F) Max: 36.9 C (98.4 F) Pulse: 67 Pulse Min: 47 Max: 68 Resp: 23 Resp Min: 11 Max: 23 BP: 115/65 BP Min: 99/59 Max: 115/65 SpO2: 95 % SpO2 Min: 94 % Max: 99 % Body mass index is 25.1 kg/m. General Appearance: Jaundiced, lying in bed, comfortable, NAD HEENT: Scleral icterus, EOMI, MMM Respiratory: CTAB, no wheeze or crackles Cardiovascular: RRR, 2/6 holosystolic murmur loudest at left sternal border Gastrointestinal: Obese, soft, non-tender, no rebound, no guarding Musculoskeletal: 2+ pitting edema to mid delgadillo Skin: Jaundiced. Large ecchymosis over R knee. Neurologic: AAOx3. Grossly non focal. Able to recite days of week forward and backwards Psychiatric: Cooperative. Laboratory Interpretation: Chem: CBC: Imaging Interpretation: No interval imaging Assessment and Plan: Mr. Lawson is a 54 y/o man admitted to the MICU for afib with RVR in setting of ESLD, spur c ell anemia, iron overload, now resolved and completing amiodarone load. Hepatic encephalopat hy being treated with rifaximin and lactulose. Hepatology following, on transplant list, EMILY D today 38. #DecompensatedAlcoholic Cirrhosis #MetabolicEncephalopathy #ESLD #Thrombocytopenia Appears stable. HE resolved with increased bowel regimen. Fully alert and oriented. Two BMs so far today 07/22 - Continue lactulose titration 30 grams TID with PRN additional - Continue rifaximin - Hepatology following - re-listed on active transplant list 07/21 #Paroxysmal Supraventricular Tachycardia May be related to myocardial iron deposition. Does not seem to be driven by infection or hy povolemia. Metoprolol was inadequate for control. - Completing amiodarone load - 400 mg PO TID - Plan for maintenance amiodarone dose of 200 mg PO daily (first dose will be 07/27/19) - Cardiology following - Continue with telemetry - K > 4, Mg > 2 #Concern for HRS #KAR #Hypotension Creatinine elevated from prior baseline. In setting of hypotension and akr, concern for HRS . S/p albumin and IVF resuscitation without improvement. KAR improving, down to 1.56 from 1. 75. - Continue midodrine 15 mg TID - Continue octreotide to 200 mcg TID #Spur cell anemia #Iron overload While awaiting transplant goal hemoglobin of 8 per hepatology recs. Otherwise more conserva tive transfusion goal. - Continue home deferiprone 2000 mg TID. Patient ran out today 07/22. Pharmacy unable to ord er. Family will bring more 07/24, so patient will miss doses on 07/23. 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 - NPH 20 BID - Lispro 14 TID WM - Medium SSI #Hyperthyroidism, mild - Unlikely to be driving tachycardia - Outpatient follow up Julian Feliciano Farrukh Associated attestation - Donell Cr MD - 07/24/2019 7:40 AM PDTA resident assisted wit h documenting this service. I saw the patient and reviewed and verified all information docu mented by the resident, and made modifications to such information, when appropriate. 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 Today: - no e/o decompensated HE (oriented, no asterixis) - stable/asymptomatic SVT responsive to beta-blockers - d/w cardiology, will trial digoxin if this recurs - Cr impr'g with HRS cocktail Dispo: TBD pending liver transplant Rest per associated gen med team documentation. DONELL CR MD [id number] I spent 105 minutes in the care of this patient, > 55% of which was face to face counseling the patient regarding the plan for his stay and in care coordination [facility] the [place] [facility]; 35 minutes of this was in critical care time of which 100% was face to face mon itoring hemodynamic response to emergent treatments (modified valsalva, IV metoprolol) for l amber-threatening SVT. Jovany Mckinley MD - 07/18/2019 7:04 AM PDT [facility] MEDICAL ICU - HISTORY & PHYSICAL Author: Jovany Mckinley MD Attending: Candelario Rice MD ID/CC: Donell Lawson is a 54 y.o. man admitted to the MICU for unstable atrial fibrillation wit h RVR. HPI: Donell Lawson is a 54 yo male with a history of alcoholic cirrhosis and alcoholic hepatitis com plicated by ascites, leg edema, spur cell adenoma, and secondary iron overload listed for li charlie transplant with MELD 34 who was transferred from [facility] with AMS and new onset hyperglycemia, trauma to R knee after a fall, and renal insufficiency. He was transfe rred to the MICU for unstable atrial fibrillation with RVR into 180s and blood pressures 80s /50s. First episode patient converted back to NSR prior to any intervention, then became tac hycardic again with rates 140-180s with irregular rhythm. Was given adenosine 6 mg, 12 mg, 1 2 mg without breaking. Upon arrival to MICU, he has a regular rhythm with a rate of 156, BP 79/55. Alert and oriented. Denies chest pain or SOB. Reports pain in R knee. He does have a hx of SVT noted after dobutamine stress testing as part of liver transplant eval requiring adenosine 6 mg prompting starting metoprolol. Pre-MICU Course: See HPI above. ROS: All other ROS negative unless stated otherwise. Past Medical History: Diagnosis Date Cirrhosis (HCC) CKD (chronic kidney disease) Patient Active Problem List Diagnosis Alcoholic cirrhosis of liver with ascites (HCC) Chronic kidney disease Hepatorenal syndrome (HCC) Abnormal echocardiogram Cirrhosis (HCC) CKD (chronic kidney disease) SVT (supraventricular tachycardia) (HCC) Paroxysmal A-fib (HCC) Chronic kidney disease, unspecified CKD stage Asymptomatic microscopic hematuria Left nephrolithiasis Allergies Allergen Reactions Doxycycline Hives and Rash Prior to Admission Medications Prescriptions deferiprone 500 mg oral tablet Sig: Take 4 tablets (2,000mg) by mouth three times daily. Patient not taking: Reported on 07/06/2019 furosemide 20 mg oral tablet Sig: Take 2 tablets by mouth two times daily. lactulose 10 gram/15 mL oral solution Sig: Take 15 mL by mouth two times daily. metoprolol succinate 50 mg oral tablet extended release 24 hr Sig: Take 0.5 tablets by mouth once daily. spironolactone 100 mg oral tablet Sig: Take 1 tablet by mouth once daily. Facility-Administered Medications: None Past Surgical History: Procedure Laterality Date LEG SURGERY Family History Problem Relation Liver cancer Neg Hx Social History Tobacco Use Smoking status: Never Smoker Smokeless tobacco: Former User Types: Chew Substance Use Topics Alcohol use: No Frequency: Never Social History Social History Narrative Not on file Vital Signs: Cuff BP (!) 87/50 (07/18/19 1315) | BP Min: 70/47 Max: 113/61 Cuff MAP 61 mmHg (07/18/19 1315) | BP Mean Min: 47 mmHg Max: 84 mmHg Art Line BP | No data recorded Art Line MAP | No data recorded HR 72 (07/18/19 1315) | Pulse Min: 30 Max: 192 | Cardiac Rhythm: Irregular;Atrial Fibrill iation;PACs;Multifocal;Atrial (07/18/19 0800) Temp 36.7 C (98.1 F) (07/18/19 1200) | Temp Min: 36.4 C (97.5 F) Max: 36.9 C (9 8.4 F) RR 19 (07/18/19 1315) | Resp Min: 13 Max: 21 SpO2 98 % (07/18/19 1315) | SpO2 Min: 94 % Max: 100 % O2 Device None (room air) (07/18/19 1200) | Cam/RASS Most Recent Value Overall CAM-ICU Positive RASS Scale -2 CPOT Intake/Output Summary (Last 24 hours) at 07/18/19 0700 Last data filed at 07/18/19 0607 Gross per 24 hour Intake 915 ml Output 870 ml Net 45 ml Intake/Output Summary (since admission) at 07/17/19 181 Last data filed at 07/18/19 0607 Gross for the last 1 days Intake 915 ml Output 870 ml Net since Admission 45 ml BMI: 25.2 Weights 81.6 kg (180 lb) (07/17/19 2243) 88.1 kg (194 lb 3.2 oz) (07/06/19 1419) Admit Wt: 81.6 kg (180 lb) Physical Exam: Gen: jaundiced but comfortable HEENT: scleral icterus present CV: tachycardic, regular, peripheral pulses intact and symmetric Pulm: CTAB, no increased WOB Abd: soft, NT, ND, bowel sounds present, rectal exam negative for black stool Ext: R knee swollen, warm, purple/red bruise, minimal LE edema Skin: spider angioma on upper chest, dry scaling skin on BLEs POCUS: Cardiac - aortic calcification, LV appears underfilled Internal jugular - JVP flat at clavicle at 10 degrees Laboratories: Recent Labs 07/17/19 2317 07/18/19 0731 VBGPH 7.37 7.37 VBGPCO2 56* 54* VBGHCO3 32* 30* Recent Labs 07/17/19195207/18/19 0509 07/18/19 0858 WBC 6.47 7.11 8.19 HB 8.8* 9.2* 7.8* HCT 25.0* 25.7* 21.9* MCV 102.0* 102.8* 103.8* PLT 33* 35* 34* NEUTROPHILCO 4.85 5.44 6.54 LYMPHSABS 0.96* 0.92* 0.77* MONOCYTECO 0.50 0.61 0.58 EOSCO 0.11 0.08 0.13 BASOPHILCO 0.02 0.03 0.03 IMGRANABS 0.03 0.03 0.14* Recent Labs 07/16/19 07/17/19195207/18/19 0509 INRPT 2.0* 3.40* 3.42* APTT -- 58.2* 54.5* FIBRINOGEN -- 153 148* Recent Labs 07/17/19200107/17/19200507/18/19 0509 07/18/19 0858 NA -- 134* 136 136 K -- 4.3 4.1 4.0 CL -- 98 99 101 BICARB -- 31 29 30 BUN -- 48* 46* 42* CR -- 1.20 1.23 1.20 CA -- 9.4 9.3 8.9 MG 1.8 -- -- 1.7 PO4 3.1 -- -- 2.3* ANIONGAP -- 5 8 5 Recent Labs 07/18/19 0706 07/18/19 0818 07/18/19 0857 07/18/19 0858 07/18/19 1005 07/18/19 1109 07/18/19 1216 07/18/19 1318 GLU 160* 151* 153* 154* 163* 172* 194* 162* Recent Labs 07/16/19 07/17/19200507/18/19 0509 AST 66* 64* 66* ALT 45 40 45 TBILI 15.0* 13.4* 13.6* AP 157* 124 112 ALB 3.3* 2.7* 2.7* TP -- 6.8 6.6 Recent Labs 07/17/19 2317 07/18/19 0509 07/18/19 0858 LACTICACID 1.8 -- 2.4 TROPONIN -- 0.08 0.11 NTPROBNP -- -- 2,564* Lab Orders - In Process (From admission to next 24h) Start Ordered 07/18/19 0500 CBC, WITH DIFFERENTIAL ONCE 07/18/19 0323 07/17/19 2200 HEMOGLOBIN A1C, BLOOD LAB ADD ON 07/17/19 2146 07/17/191999 CULTURE, BLOOD BACTI & YEAST ONCE 07/17/19195307/17/191999 CULTURE, BLOOD BACTI & YEAST ONCE 07/17/191953 Microbiology: Blood cultures x2 07/17 NGTD Urine culture 07/17 Insignificant growth R knee arthocentesis Fungal culture - NGTD Gram stain - no organisms seen, WBCs present Imaging: CXR 07/18: Mild subsegmental basilar atelectasis. Lungs otherwise clear. Knee XR, 2 view 07/18: Soft tissue swelling about the anterior aspect of the knee and small knee effusion. Old hea led fracture deformities of the proximal tibia and fibula with intact tibial screws. No acut e osseous abnormality. Ultrasound liver with Doppler 07/17: Cirrhotic liver morphology with findings of portal HTN Unremarkable Doppler ultrasound without evidence of venous thrombosis Cholelithiasis without evidence of cholecystitis EKG/Echocardiogram: EKG 07/18 sinus tachycardia with rate 137 bpm Current Facility-Administered Medications Medication Dose Route Frequency Last Rate amiodarone (CORDARONE) 900 mg in dextrose 5 % 500 mL (1.8 mg/mL) IV infusion 0.5-1 mg/ min intravenous CONTINUOUS 1 mg/min (07/18/19 1300) insulin regular in NaCl 0.9% IV infusion (1 unit/mL) 0.1-50 Units/hr intravenous ROSETTE NUOUS 3.4 Units/hr (07/18/19 1319) Current Facility-Administered Medications Medication Dose Route Frequency Last Rate lactulose (ENULAC) liquid 20 g 30 mL oral TID magnesium sulfate in water IV (RTU) 4 g 4 g intravenous ONCE piperacillin-tazobactam (ZOSYN) IV (minibag+) 3.375 g 3.375 g intravenous Q8H Stopped (07/18/19 1023) rifAXIMin (XIFAXAN) tablet 550 mg 550 mg oral BID vancomycin (VANCOCIN) IV 1,000 mg 1,000 mg intravenous Q12H 0 mg (07/18/19 0109) Current Facility-Administered Medications Medication Dose Route Frequency Last Rate dextrose 5%-NaCl 0.45% IV infusion 5-400 mL intravenous PRN dextrose 50 % in water IV 15-150 mL 15-150 mL intravenous PRN glucose chewable tablet 4-40 g 4-40 g oral PRN insulin regular bolus from continuous infusion 1-50 Units 1-50 Units intravenous NE EDED (BOLUS) lactulose (ENULAC) 10-30 g 15-45 mL oral TID PRN Assessment & Plan: Donell Lawson is a 54 y.o. man admitted to the MICU for unstable Afib with RVR. #Paroxysmal Supraventricular Tachycardia #Paroxysmal Atrial Fibrillation SVT was in the setting of dobutamine stress test with recent admission for 04/21/19-04/24/19 fo r this, which resolved with carotid sinus massage and for which he was put on metoprolol tar trate 12.5mg q6hrs. On the floor he was in SVT again into the 160s w/BP in the 80s/60s. Davis tid massage was ineffective, modified Valsalva was tried as well. He came out of it spontane ously once for about 5min but went back into it and was unable to return to sinus after 6mg and 12mg x2 of amiodarone. Transferred to MICU for this. Here in the MICU, patient remains t achycardic and oscillating in and out of regular and irregular rhythm. Remains hypotensive d espite albumin and 500 mL of IVF. Amiodarone loading dose has been given, and he now remains on amiodarone drip. Cardiology has been consulted, and they recommend that we continue the amiodarone drip and see how his heart rate and blood pressure responds. In the meantime, we will continue fluid resuscitation as needed. In terms of etiology of his tachyarrhythmia, I suspect that hypovolemia and some component of hyperthyroidism is also playing a role in the setting of mildly low TSH and elevated free T4. - Amiodarone IV loading dose completed - Amiodarone drip at rate of 0.5-1 mg/min - Albumin 5% 25 grams given - 500 mL LR given - TTE; follow up results - Cardiology following; appreciate recommendations - Recommend continuing amiodarone drip and getting TTE - Holding home metoprolol in setting of hypotension #Decompensated Alcoholic Cirrhosis #Metabolic Encephalopathy Pt with MELD-Na of 34 on presentation with jaundice and likely hepatic encephalopathy w/o a tapable pocket of asitic fluid. Pt w/full work up for liver txp already and is on the list. Concern for possible infection vs lactulose non-adherance prior to admission. - Lactulose ordered with BM goal of 3-5 daily - Rifaximin 550 mg PO BID - Hepatology following; appreciate recommendations - F/u OSH and [facility] blood cultures #Hyperthyroidism He does not have a history of hyperthyroidism as far as I can tell from his chart. TSH is v kenneth mildly low 0.47 and free T4 is elevated to 1.6. I suspect that this hyperthyroid state i s contributing to his SVT/Afib with RVR. Will not start any treatment at this time while we focus on stabilizing his blood pressures and heart rates. #Diabetes Mellitus Patient presented with hyperglycemia - new diagnosis of DM. - Trend blood glucose - SSI #Right Knee Trauma Pt with fall from ground level onto right knee with edematous, painful knee with surroundin g ecchymoses. Likely a hemarthrosis in the setting of thrombocytopenia and elevated INR. Ort ho consulted and performed arthrocentesis. Sent fluid for gram stain and culture. Low suspic ion for septic joint at this time, but will continue to keep in back of mind if hypotension does not resolve. - Orthopedic surgery following; appreciate recommendations #KAR on CKD Pt with KAR at OSH with Cr elevated to 1.95. This is likely 2/2 to pre-renal etiology given unknown length of time with worsening encephalopathy and likely poor po intake. If not reso lving, concern for HRS as well. Will trend BMPs. Anticipate improvement with fluid resuscita tion and improved cardiac output once we normalize heart rates and blood pressures improve. #Hyponatremia #Protein-Calorie Malnutrition Likely 2/2 ESLD. Continue to monitor while inpatient. Hepatology following. Present on admission Atrial fibrillation with RVR, unstable Consultants: Orthopedic surgery, hepatology, cardiology Feeding: PO diet Analgesia: none Sedation: None (RASS Goal 0 (alert and calm)) Thromboprophylaxis: SCDs (Pharmacologic ppx contraindicated) Head of Bed: Ad hever Ulcer Prophylaxis: Not indicated Glycemic control: Endotool insulin infusion Mobility Goal: Ambulate Lines/Tubes/Drains/Airways: PIV x2 Code Status Code Status Full Code Surrogate Decision Maker Documentation: Surrogate Decision Maker Primary Surrogate Decision Maker Doreen norwood [phone] Secondary Surrogate Decision Maker Priyanka Rivera mother This patient was staffed with Dr. Rice, attending physician. Jovany Mckinley MD Internal Medicine, PGY 1 [facility] 07/18/2019, 7:05 AM Template created by [employer] 2017 Rojas Marie MD - 07/17/2019 9:17 PM PDT Internal Medicine History and Physical Attending Physician: Porsche Gipson MD Chief Complaint: Hepatic encephalopathy HPI: Donell Lawson is a 54-year-old man with a history of alcoholic cirrhosis complicated by ascites , leg edema, spur cell adenoma, and secondary iron overload listed for liver transplant with MELD-Na of 34 who was transferred from [facility] with altered mental status an d new onset hyperglycemia, trauma to R knee after a fall, and renal insufficiency. Mr. Lawson is confused on history. However, he reports that he is here because he fell. He s tates that he was walking at home and tripped over a pillow that was on the floor, landing o n his right knee. He states that his knee is most painful on the patella without radiation u p or down the leg. He feels like his sensation is intact and that it hurts worse with moveme nt but it is mobile. He denies headache, chest pain, shortness of breath, abdominal pain, na usea, vomiting, diarrhea, constipation or focal weakness. He states that he has not had a BM yesterday and that he did not take his lactulose (this is unlikely given he was at [facility]). [facility] Course: - Lactulose given, CT head w/o abnormality, 1L NS, Insulin Regular 30U SC - CBG 584, Na 131, Cr 1.85, NUB 53, ammonia 78 - Hgb 10.1 w/smear showing tear drop and Tamara cells - WBC 7.1, platelets 42, TBili 16.3, AST/ALT, 64/65, Alk Phos 135, INR 2.2 - UA bland, UDS neg, ethanol <10 - CXR: clear lungs with R AC joint widening Past Medical History: I am unable to obtain further PMHx due to patient's altered mental status. Past Medical History Alcoholic cirrhosis of liver with ascites (HCC) Chronic kidney disease Hepatorenal syndrome (HCC) Abnormal echocardiogram Cirrhosis (HCC) CKD (chronic kidney disease) SVT (supraventricular tachycardia) (HCC) Paroxysmal A-fib (HCC) Chronic kidney disease, unspecified CKD stage Asymptomatic microscopic hematuria Left nephrolithiasis Overview 05/19/2019: asymptomatic 4 mm left renal stone I am unable to obtain further Medical History due to patient's altered mental status. Past Medical History: Diagnosis Date Cirrhosis (HCC) CKD (chronic kidney disease) Review of Systems: Unable to obtain reliable ROS. Notable ROS in HPI. Pt's only complaint is R knee pain. ROS otherwise normal. Home Medications: I have inserted the prior to admission medicaton list currently in the EHR, but am unable t o confirm it due to patient's altered mental status. Prior to Admission Medications Prescriptions deferiprone 500 mg oral tablet Sig: Take 4 tablets (2,000mg) by mouth three times daily. Patient not taking: Reported on 07/06/2019 furosemide 20 mg oral tablet Sig: Take 2 tablets by mouth two times daily. lactulose 10 gram/15 mL oral solution Sig: Take 15 mL by mouth two times daily. metoprolol succinate 50 mg oral tablet extended release 24 hr Sig: Take 0.5 tablets by mouth once daily. spironolactone 100 mg oral tablet Sig: Take 1 tablet by mouth once daily. Facility-Administered Medications: None Allergies I am unable to review the allergy list due to patient's altered mental status. Allergies Allergen Reactions Doxycycline Hives and Rash Social History I am unable to update the Social Hx due to patient's altered mental status. Social History Tobacco Use Smoking status: Never Smoker Smokeless tobacco: Former User Types: Chew Substance Use Topics Alcohol use: No Frequency: Never Social History Social History Narrative Not on file Family History I am unable to update the Family Hx due to patient's altered mental status. Family History Problem Relation Liver cancer Neg Hx Physical Exam: Last 24 hour min/max Temp: 36.4 C (97.5 F) Temp Min: 36.4 C (97.5 F) Max: 36.7 C (98.1 F) Pulse: 75 Pulse Min: 75 Max: 75 Resp: 18 Resp Min: 18 Max: 18 BP: 95/56 BP Min: 95/56 Max: 97/53 SpO2: 99 % SpO2 Min: 99 % Max: 100 % There is no height or weight on file to calculate BMI. Gen: ill appearing, jaundiced patient resting comfortably in bed HEENT: sclera icterus, mucous membranes moist, EOMI Neck: Supple CV: regular, rate and rhythm; holosystolic flow murmur most prominent in R sternal border; no appreciable rubs or gallops Pulm: clear to ausculation bilaterally Abdomen: soft, non-tender, distended without enough ascitic fluid for tap (on U/S), positiv e BS MSK: able to move all limbs symmetrically, pulses 2+ in all extremities, no peripheral anand a, ecchymoses on edematous R knee with increased tenderness to palpation on patella Skin: jaundiced, spider angiomata, no other visible lesions or rashes Neuro: CN with no apparent deficit but pt would not cooperate with full neurologic exam, se nsation and strength appear intact in all gr, tremulous and hard to assess asterixis Psych: AOx2 (self and place), slowed speech with blunted affect Laboratory Interpretation: VB.37, 56 CO2 WBC 6.47, Hgb 8.8, platelet count 33 Na 134, K 4.3, BUN 48, Cr 1.2, glucose 257 AST/ALT 64/40, TBili 13.4 Lactate 1.8, 4.7 Imaging Interpretation: Liver with Doppler: final read pending Need to acquire OSH imaging. Assessment and Plan: Donell Lawson is a 54-year-old man with a history of alcoholic cirrhosis complicated by ascites , leg edema, spur cell anemia, and secondary iron overload listed for liver transplant with MELD-Na of 34 who was transferred from [facility] with altered mental status and new onset hyperglycemia, trauma to R knee after a fall, and renal insufficiency. It is uncl ear why he is presenting acutely encephalopathic. However, his KAR seems to be improving on admission. It is possible that he became dehydrated at home w/BMs 2/2 lactulose and had a pr e-renal KAR on top of his underlying CKD. # Decompensated Alcoholic Cirrhosis # Metabolic Encephalopathy Pt with MELD-Na of 34 on presentation with jaundice and likely hepatic encephalopathy w/o a tapable pocket of asitic fluid. Pt w/full work up for liver txp already and is on the list. Concern for possible infection vs lactulose non-adherance prior to admission. - Lactulose ordered with BM goal of 3-5 daily - Hepatology following - F/u blood cultures from [facility] and OSH # Paroxysmal Supraventricular Tachycardia # Paroxysmal Atrial Fibrillation SVT was in the setting of dobutamine stress test w/recent admission for 04/21-03/08 for this, which resolved with carotid sinus massage and for which he was put on metoprolol tartrate 12 .5mg q6hrs. On the floor he was in SVT again into the 160s w/BP in the 80s/60s. Carotid mass age was uneffective, modified valsalva was tried as well. He came out of it spontaneously on ce for about 5min but went back into it and was unable to return to sinus after 6mg and 12mg x2 of amiodarone. For this he is being set up for MICU transfer. - Home metoprolol 12.5mg Q6hrs, held overnight # Diabetes Mellitus Pt with significant hyperglycemia. Now with new onset DM. - Pt on SSI # Right Knee Trauma Pt with fall from ground level onto right knee with edematous, painful knee with surroundin g ecchymoses. Likely a hemarthrosis in the setting of thrombocytopenia and elevated INR. How ever, ortho consulted to assess for possible septic joint - as this could have precipitated his current HE. - Ortho consulted to evaluate, appreciate recs # KAR, resolving # Chronic Kidney Disease Pt with KAR at OSH with Cr elevated to 1.95. This is likely 2/2 to pre-renal etiology given unknown length of time with worsening encephalopathy and likely poor po intake. If not reso lving, concern for HRS as well. 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 Continue to monitor while inpatient. # Widened AC Joint Seen on OSH Xray. Pt asymptomatic. - F/u with [facility] imaging. Code Status: Full Code VTE Prophylaxis: SCDs Diet: regular diet This patient will be seen and staffed within 24 hours by the attending physician, Dr. Blaine Jackson. Please see attending attestation for further modifications to the plan. Rojas Cantu MD, MPH Department of Medicine, PGY-1 Pager: [phone] documented in this enco unter Procedure Notes Homero Cid MD - 08/22/2019 1:10 PM PDTAssociated Order(s): CENTRAL LINE CENTRAL LINE Performed by: Homero Cid MD Authorized by: Una Bazan MD Written consent obtained?: Yes Consent given by: Patient Patient identity confirmed per policy: Yes Procedural pause: Immediately prior to the procedure a pause per universal protocol was julia led . Location performed: Acute Care Skin Preparation: Chloraprep Protective barrier: Cap, Mask, Hand scrub, Gown, Gloves and Full body drape Sterile Ultrasound Technique: Sterile Ultrasound techniques (sterile gel, and sterile prob e cover) used Indications: Indications: Renal replacement therapy Diagnosis indicating procedure: Alcoholic liver disease; end stage liver disease; s/p OL Tx Responsible Provider: Operators: Resident and Fellow Fellow name: Broderick Min Resident name: Silvia Cid Anesthesia: Local anesthetic: Lidocaine 1% w/o epinephrine Anesthetic total (ml): 10 Sedation/Analgesia: Patient sedated?: No Procedure details: Insertion side: Right Insertion site: Internal Jugular vein Insertion site statement: With catheter tip targeted in SVC, see CXR report for confirma tion Vein printed circuit boards plasma etcher technique: Ultrasound Guidance Techique: The modified Seldinger technique (a [id number]-fffzgt-ryha-gfvr-through -the-catheter) was used for vessel cannulation Confirmed by: The wire was visualized with ultrasound in the correct target vessel Ultrasound options: No images saved Catheter type: Hemodialysis Cath Catheter size: Hemodialysis Catheter length: 16 cm Insertion depth: 16 cm Ports: All ports aspirated for blood Number of attempts: 1 Fixation and Dressing: Line secured: Suture, Dressing Applied and StatLock The guide wire was removed without difficulties and intact Dressing: Covered with sterile gauze applied prior to removal of drape followed by steri le dressing applied Complications: Complications: None Silvia Cid MD 08/22/19 1:12 PM General Surgery, R4 Associated attestation - Una Bazan MD - 08/25/2019 10:32 AM PSTTransplant/ Hepatobilia ry Staff Note I saw and evaluated the patient. I agree with the findings and the plan of care as dominick machado in Dr. Cid's note. UNA BAZAN MD second baller Chief, Abdominal Organ Transplantation - Hepatobiliary Surgery [address] [id number] Olena Rosen - 08/17/2019 4:36 PM PDTAssociated Order(s): PROCEDURE NOTECellular Therap y Laboratory - UNOS Vessels Cell Processing Name: Doug Lawson Allogeneic Donor Specimen Type: Vessel Receipt, Storage and Monitoring: One cup of extra vessels with UNOS [id number] for Doug Lawson is received by me in a bag with a UNOS tag. The cup of extra vessels and the accompanying tag are labeled with the [employer] (UNOS) Donor Identifier. The extra vessels are placed by me into the secure 2-8C monitored refrigerator in the space designated for extra vessel stor age. Receipt of the extra vessels for Doug Lawson into the Cellular Therapy Lab is corrina rded on the Extra Vessel Storage Log following Standard Operating Procedure by me. The extra vessels are logged by me into the Extra Vessel Receipt, Release and Discard Datab ase that contains the UNOS Donor ID, date the vessel was recovered, the intended recipient n jarred, the intended recipient medical record number and the due date range for vessel discard. The extra vessels designated for Doug Lawson are stored in the secure 2-8C refri gerator and the storage temperature monitored. The secure 2-8C refrigerator designated for vessel storage is monitored by Cellular Thera py Lab staff 24 hours per day, 7 days per week using the [facility] [place] [employer] Alarm Monitoring System and all Cellular Therapy Lab staff will be paged in the ev ent of an alarm. Recipient Name and MRN Verified: Yes UNOS Donor ID Verified:Yes Tissue Packaging Integrity Verified: Yes Tissue characteristics: Date of recovery: 08/15/2019 Date of storage in the secure 2-8C refrigerator: 08/17/2019 Date range of discard: 08/25/2019-08/29/2019 Olena Rosen Cellular Therapy Lab docum ented in this encounter Consult Notes Peg Grace MD - 08/29/2019 9:39 AM PSTFormatting of this note might be different fr om the original. Endocrinology Consult Service Progress Note Hospital Day:43 Assessment: Doug Lawson is a 54 y.o. males/p liver transplant for ESLD on08/16/19. Endocri nology has been consulted for glycemic management in the setting of coricosteroid and tube-f eed related hyperglycemia. He is doing reasonably well on this regimen, with no hypoglycemia. Mealtime counts are slig htly complicated by irregular meals around dialysis and other procedures. May require furthe r titration by transplant team pharmacist after discharge. Recommendations for discharge: Continue NPH 18 units am, 9 units pm Mealtime insulin: 5 units breakfast, 10 units lunch, 12 units dinner Establish with PCP vs clinical staff rn for servicing rep diabetes management Peg Grace MD Endocrinology Fellow Pager [phone] I have staffed the patient with attending clinical staff rn Dr. Will Rosario who agrees with e assessment and recommendations as detailed above. Interval events: Receiving dialysis this am, then planning to discharge after Inpatient Medications acetaminophen (TYLENOL) tablet 500 mg, 500 mg, oral, Q6H PRN albumin human (BUMINATE, FLEXBUMIN) 5 % injection 25 g, 25 g, intravenous, DAILY PRN amiodarone (CORDARONE) tablet 200 mg, 200 mg, oral, DAILY aspirin tablet 325 mg, 325 mg, oral, DAILY bisacodyl (DULCOLAX) suppository 10 mg, 10 mg, rectal, DAILY PRN darbepoetin darius (ARANESP) injection 40 mcg, 0.45 mcg/kg, subcutaneous, Q7D dextrose 50 % in water IV 25 mL, 25 mL, intravenous, PRN [COMPLETED] fluconazole IV 400 mg IN NaCl (RTU), 400 mg, intravenous, ONCE FOLLOWED BY fluconazole (DIFLUCAN) tablet 400 mg, 400 mg, oral, Once per day on Sat glucagon (GLUCAGEN) injection 1 mg, 1 mg, intramuscular, PRN glucose chewable tablet 16 g, 16 g, oral, PRN guar gum (BENEFIBER) oral powder 1 packet, 1 packet, oral, DAILY heparin 1,000 unit/mL injection 1-3 mL, 1-3 mL, Intracatheter, 4B DIALYSIS PRN insulin lispro (HUMALOG) injection 1-16 Units, 1-16 Units, subcutaneous, TID W/MEALS insulin lispro (HUMALOG) injection 12 Units, 12 Units, subcutaneous, QPM MEAL insulin lispro (HUMALOG) injection 5 Units, 5 Units, subcutaneous, QAM MEAL insulin lispro (HUMALOG) injection 8 Units, 8 Units, subcutaneous, QLUNCH insulin NPH (HUMULIN N) injection 18 Units, 18 Units, subcutaneous, QAM insulin NPH (HUMULIN N) injection 8 Units, 8 Units, subcutaneous, HS lidocaine (LIDODERM) 5 % patch 1 patch, 1 patch, transdermal, Q24H lidocaine (LIDODERM) 5 % patch 1 patch, 1 patch, transdermal, Q24H metoprolol tartrate (LOPRESSOR) tablet 6.25 mg, 6.25 mg, oral, BID mycophenolate (CELLCEPT) capsule 1,000 mg, 1,000 mg, oral, BID (MMF) omeprazole (PRILOSEC) capsule 20 mg, 20 mg, oral, BEFORE BREAKFAST oxyCODONE (immediate release) (ROXICODONE) tablet 2.5-5 mg, 2.5-5 mg, oral, Q4H PRN polyethylene glycol (MIRALAX) packet 17 g, 17 g, oral, DAILY polyethylene glycol (MIRALAX) packet 34 g, 34 g, oral, TID PRN [START ON 08/31/2019] predniSONE (DELTASONE) tablet 15 mg, 15 mg, oral, DAILY [COMPLETED] predniSONE (DELTASONE) tablet 60 mg, 60 mg, oral, DAILY FOLLOWED BY [COMPLE JEANNETTE] predniSONE (DELTASONE) tablet 40 mg, 40 mg, oral, DAILY FOLLOWED BY [COMPLETED] pre dniSONE (DELTASONE) tablet 30 mg, 30 mg, oral, DAILY FOLLOWED BY predniSONE (DELTASONE) tablet 20 mg, 20 mg, oral, DAILY probiotic yogurt (MAGEN'S YOGURT), , oral, DAILY QUEtiapine (SEROQUEL) tablet 12.5 mg, 12.5 mg, oral, HS QUEtiapine (SEROQUEL) tablet 25 mg, 25 mg, oral, HS PRN senna-docusate (SENOKOT S) 8.6-50 mg 1 tablet, 1 tablet, oral, BID tacrolimus capsule 4 mg, 4 mg, oral, BID (08 and 18) tamsulosin (FLOMAX) capsule 0.4 mg, 0.4 mg, oral, DAILY trimethoprim-sulfamethoxazole (BACTRIM, SEPTRA) 80-400 mg 1 tablet, 1 tablet, oral, Once pe r day on Sat valGANciclovir (VALCYTE) tablet 450 mg, 450 mg, oral, Once per day on Sat Objective: Last Vitals: BP 140/72 | Pulse 79 | Temp 36.5 C (97.7 F) (Temporal) | Resp 17 | Ht 1.803 m (5' 11") | Wt 104.5 kg (230 lb 4.8 oz) Comment: standing | SpO2 100% | BMI 32.12 k g/m | BSA 2.29 m Current FIO2 (%): 21 fraction of O2 (08/16/19 1329) O2 Delivery Device: None (room air) (08/29/19 0726) Last Vitals: BP 140/72 | Pulse 79 | Temp 36.5 C (97.7 F) (Temporal) | Resp 17 | Ht 1.803 m (5' 11") | Wt 104.5 kg (230 lb 4.8 oz) Comment: standing | SpO2 100% | BMI 32.12 k g/m | BSA 2.29 m 24 Hour Vital Min/Max: Systolic (24hrs), Av , Min:134 , Max:165 Diastolic (24hrs), Av, Min:71, Max:88 Pulse Min: 75 Max: 88 Temp Min: 36.5 C (97.7 F) Max: 36.7 C (98.1 F) Resp Min: 15 Max: 17 SpO2 Min: 100 % Max: 100 % Intake/Output Summary (Last 24 hours) at 08/29/2019 0940 Last data filed at 08/29/2019 0900 Gross per 24 hour Intake 865 ml Output 906 ml Net -41 ml Physical Exam: General Appearance: Well developed, Well nourished, No apparent distress Respiratory: Breathing comfortably on room air Neurologic: Sleeping peacefully on dialysis. CN grossly intact Lab Results Component Value Date A1C 8.1 07/17/2019 A1C <3.5 04/21/2019 Last 8 POC CBG's Lab Results Component Value Date GLU 81 08/29/2019 GLU 182 (H) 08/29/2019 GLU 201 (H) 08/29/2019 GLU 228 (H) 08/28/2019 GLU 186 (H) 08/28/2019 GLU 138 (H) 08/28/2019 GLU 189 (H) 08/28/2019 GLU 240 (H) 08/28/2019 Recent Labs 08/27/19 0557 08/28/1953508/29/19 06 AST 14 7 9 ALT 40 33 32 TBILI 1.1 1.1 1.0 AP 47* 41* 46* ALB 3.8 3.7 3.8 TP 6.1* 5.8* 6.1* Recent Labs 08/27/19 0557 08/28/19 0536 08/29/19 0608/29/1972608/29/19 1447 GLU 245* < > 240* < > 201* 182* 81 BUN 76* -- 74* -- 69* -- -- CR 2.40* -- 2.47* -- 2.50* -- -- ALB 3.8 -- 3.7 -- 3.8 -- -- CA 8.7 -- 8.7 -- 8.8 -- -- NA 135* -- 137 -- 135* -- -- K 4.6 -- 4.7 -- 4.9 -- -- CL 101 -- 103 -- 103 -- -- BICARB 27 -- 27 -- 26 -- -- < > = values in this interval not displayed. Lab Results Component Value Date WBC 5.99 08/29/2019 HB 7.7 08/29/2019 HCT 23.8 08/29/2019 PLT 145 08/29/2019 MCV 99.2 08/29/2019 RDW 67.8 08/29/2019 Lab Results Component Value Date TSH 0.47 07/18/2019 TSH 1.33 04/21/2019 Peg Otto MD - 1:19 PM PST Endocrinology Consult Service Progress Note Hospital Day:42 Interval events: Not discharged yet. Waiting for paperwork to finalize dialysis chair according to becky correa Primary team says discharge planned for tomorrow. BG went very high list night to 278 at 6:55 pm, 285 at 10:48pm, 189 by 7:45am. Patient received 8 units of mealtime lispro at 1:55pm, 10 meal and 6 correction at 7:01 pm, 8 NPH at 8:55 pm For breakfast this AM, had 5 units for breakfast + 2 units for correctio, 18 units of PAPER COATER H Subjective: Mr. Lawson is feeling well today but is disappointed he wasn't able to discharge yesterday. He mentions that he didn't sleep well overnight due to noise from floor cleaning /waxing outside his room. He mentions that his diet was fairly usual yesterday. He had a chi cken sandwich for dinner and maybe 2 M&Ms and a hard candy as a snack after that. Denies n/v today. Inpatient Medications acetaminophen (TYLENOL) tablet 500 mg, 500 mg, oral, Q6H PRN albumin human (BUMINATE, FLEXBUMIN) 5 % injection 25 g, 25 g, intravenous, DAILY PRN amiodarone (CORDARONE) tablet 200 mg, 200 mg, oral, DAILY aspirin tablet 325 mg, 325 mg, oral, DAILY bisacodyl (DULCOLAX) suppository 10 mg, 10 mg, rectal, DAILY PRN darbepoetin darius (ARANESP) injection 40 mcg, 0.45 mcg/kg, subcutaneous, Q7D dextrose 50 % in water IV 25 mL, 25 mL, intravenous, PRN [COMPLETED] fluconazole IV 400 mg IN NaCl (RTU), 400 mg, intravenous, ONCE FOLLOWED BY fluconazole (DIFLUCAN) tablet 400 mg, 400 mg, oral, Once per day on Sat glucagon (GLUCAGEN) injection 1 mg, 1 mg, intramuscular, PRN glucose chewable tablet 16 g, 16 g, oral, PRN guar gum (BENEFIBER) oral powder 1 packet, 1 packet, oral, DAILY heparin 1,000 unit/mL injection 1-3 mL, 1-3 mL, Intracatheter, 4B DIALYSIS PRN insulin lispro (HUMALOG) injection 1-16 Units, 1-16 Units, subcutaneous, TID W/MEALS insulin lispro (HUMALOG) injection 10 Units, 10 Units, subcutaneous, QPM MEAL insulin lispro (HUMALOG) injection 5 Units, 5 Units, subcutaneous, QAM MEAL insulin lispro (HUMALOG) injection 8 Units, 8 Units, subcutaneous, QLUNCH insulin NPH (HUMULIN N) injection 18 Units, 18 Units, subcutaneous, QAM insulin NPH (HUMULIN N) injection 8 Units, 8 Units, subcutaneous, HS lidocaine (LIDODERM) 5 % patch 1 patch, 1 patch, transdermal, Q24H lidocaine (LIDODERM) 5 % patch 1 patch, 1 patch, transdermal, Q24H metoprolol tartrate (LOPRESSOR) tablet 6.25 mg, 6.25 mg, oral, BID mycophenolate (CELLCEPT) capsule 1,000 mg, 1,000 mg, oral, BID (MMF) omeprazole (PRILOSEC) capsule 20 mg, 20 mg, oral, BEFORE BREAKFAST oxyCODONE (immediate release) (ROXICODONE) tablet 2.5-5 mg, 2.5-5 mg, oral, Q4H PRN polyethylene glycol (MIRALAX) packet 17 g, 17 g, oral, DAILY polyethylene glycol (MIRALAX) packet 34 g, 34 g, oral, TID PRN [START ON 08/31/2019] predniSONE (DELTASONE) tablet 15 mg, 15 mg, oral, DAILY [COMPLETED] predniSONE (DELTASONE) tablet 60 mg, 60 mg, oral, DAILY FOLLOWED BY [COMPLE JEANNETTE] predniSONE (DELTASONE) tablet 40 mg, 40 mg, oral, DAILY FOLLOWED BY [COMPLETED] pre dniSONE (DELTASONE) tablet 30 mg, 30 mg, oral, DAILY FOLLOWED BY predniSONE (DELTASONE) tablet 20 mg, 20 mg, oral, DAILY probiotic yogurt (MAGEN'S YOGURT), , oral, DAILY QUEtiapine (SEROQUEL) tablet 12.5 mg, 12.5 mg, oral, HS QUEtiapine (SEROQUEL) tablet 25 mg, 25 mg, oral, HS PRN senna-docusate (SENOKOT S) 8.6-50 mg 1 tablet, 1 tablet, oral, BID tacrolimus capsule 4 mg, 4 mg, oral, BID () tamsulosin (FLOMAX) capsule 0.4 mg, 0.4 mg, oral, DAILY trimethoprim-sulfamethoxazole (BACTRIM, SEPTRA) 80-400 mg 1 tablet, 1 tablet, oral, Once pe r day on Sat valGANciclovir (VALCYTE) tablet 450 mg, 450 mg, oral, Once per day on Sat Objective: Last Vitals: BP 134/71 (BP Location: Right upper arm, Patient Position: Sitting) | Pulse 7 7 | Temp 36.6 C (97.9 F) (Oral) | Resp 16 | Ht 1.803 m (5' 11") | Wt 105.6 kg (232 l b 12.9 oz) | SpO2 100% | BMI 32.47 kg/m | BSA 2.3 m Current FIO2 (%): 21 fraction of O2 (08/16/19 1329) O2 Delivery Device: None (room air) (08/28/19 1149) Last Vitals: BP 134/71 (BP Location: Right upper arm, Patient Position: Sitting) | Pulse 7 7 | Temp 36.6 C (97.9 F) (Oral) | Resp 16 | Ht 1.803 m (5' 11") | Wt 105.6 kg (232 l b 12.9 oz) | SpO2 100% | BMI 32.47 kg/m | BSA 2.3 m 24 Hour Vital Min/Max: Systolic (24hrs), Av , Min:129 , Max:159 Diastolic (24hrs), Av, Min:64, Max:82 Pulse Min: 77 Max: 88 Temp Min: 36.6 C (97.9 F) Max: 36.7 C (98.1 F) Resp Min: 16 Max: 18 SpO2 Min: 100 % Max: 100 % Intake/Output Summary (Last 24 hours) at 08/28/2019 1319 Last data filed at 08/28/2019 0745 Gross per 24 hour Intake 1875 ml Output 250 ml Net 1625 ml Physical Exam: General Appearance: Well developed, Well nourished, No apparent distress pleasant convers ant HEENT: EOMI, no exophthalmos, no chemosis, sclera anicteric Cardiovascular: regular rate and rhythm,3/6 holosystolic murmur best heard over leftl owersternal border Respiratory: Normal effort, in no respiratory distress, clear to auscultation bilaterally, no wheezes, crackles or rhonchi Abdominal: distended,normoactive bowel sounds, binder in place Extremities: warm and well-perfused,2+ bilateral lower extremity edema : no payton catheter Skin: no jaundice, no rashes or bruising Neurologic: Moving all extremities, no gross focal deficits Psychiatric: affect, mood and behavior normal Labs: CBC with diff last 72 hours (or 3 results) Recent Labs 08/26/1961108/27/1955608/28/19535 WBC 4.58 4.52 5.11 HB 8.1* 7.8* 7.6* HCT 25.0* 23.7* 23.0* PLT 82* 94* 110* NEUTROPERC 69.0 73.5* 74.9* LYMPHPERC 19.4 18.4 17.4* MONOPERC 7.2 5.1 4.7 BASOPERC 0.4 0.4 0.6 EOSPERC 3.1* 2.2 1.8 Chemistries: Last 72 Hours (or 3 results): Recent Labs 08/26/1961108/27/1957 08/28/1953508/28/1945 08/28/19 1317 NA 136 -- 135* -- 137 -- -- K 4.2 -- 4.6 -- 4.7 -- -- CL 104 -- 101 -- 103 -- -- BICARB 28 -- 27 -- 27 -- -- BUN 71* -- 76* -- 74* -- -- CR 2.30* -- 2.40* -- 2.47* -- -- GLU 221* < > 245* < > 240* 189* 138* CA 8.4* -- 8.7 -- 8.7 -- -- MG 2.0 -- 2.0 -- 1.8 -- -- PO4 4.5 -- 4.6 -- 4.4 -- -- < > = values in this interval not displayed. Liver Tests: Last 72 hours (or 3 results) Recent Labs 08/26/1961108/27/1957 08/28/19535 AST 9 14 7 ALT 37 40 33 TBILI 1.1 1.1 1.1 AP 37* 47* 41* ALB 3.7 3.8 3.7 TP 5.9* 6.1* 5.8* Imaging: No results found for: CXR Assessment: Doug Chan Kirkkathydwight is a 54 y.o. males/p liver transplant for ESLD on08/16/19. Endocri nology has been consulted for glycemic management in the setting of coricosteroid and tube-f eed related hyperglycemia. Heis now takingBID NPH 18 units qam and 8 units qpm to match the effect of his oral prednisone, and 5-8-10 mealtime insulin. His BG levels increased significantly after lunch yesterday. Recommend increasing his lunch and dinner mealtime insulin again. Recommend increase dinner insulin dose to 12 units for t bron[place]. Will check how blood sugar changed tomorrow. Hopefully he will be able to discharge soon. He talked with diabetic education yesterday an d is comfortable with administering his own insulin. Recommendations: Continue NPH 18 units qpm, 8 units qam Dinner insulin dose increased to 12 units Based on review of BG levels tomorrow morning, may increase lunch as well, making mealti me insulin regimen 5-10-12 Continue moderate SS insulin Thank you for this consult. The endocrine consult team will continue to follow. Aston Rosado Medical Student [facility] I have staffed the patient with consult attending Dr. Shukla who agrees with the assessment a nd recommendations as detailed above. Note written by IWONA Rosado. Patient was seen and examined by me, and plan of care was develo ped with the remainder of the endocrinology inpatient team. Peg Grace MD Endocrinology Fellow Pager [phone] Associated attestation - Johanna Shukla MD - 09/01/2019 10:34 AM PST I personally intervi ewed the patient, performed the pertinent parts of the physical examination and personally f ormulated the plan with Dr. Grace, endocrine fellow. I agree with the fellow's documentat ion and have documented any additions or exceptions. Johanna Shukla MD, MS [employer] Division of Endocrinology, Diabetes and Clinical Nutrition Department of Internal Medicine [facility] [id number] [place] [address] Peg Grace MD - 08/27/2019 4:52 PM PSTFormatting of this note might be different fr om the original. Endocrinology Consult Service Progress Note Hospital Day:41 Interval events: BG to 199 at 1035pm, 186 at 7:15 am Found dialysis chair near where he lives. Discharge planned for today No dialysis planned for today Spoke with certified breastfeeding educator this morning about use of insulin pens Subjective: Mr. Lawson is feeling well today. Denies nausea/vomiting. His appetite remains g ood. Inpatient Medications acetaminophen (TYLENOL) tablet 500 mg, 500 mg, oral, Q6H PRN albumin human (BUMINATE, FLEXBUMIN) 5 % injection 25 g, 25 g, intravenous, DAILY PRN amiodarone (CORDARONE) tablet 200 mg, 200 mg, oral, DAILY aspirin tablet 325 mg, 325 mg, oral, DAILY bisacodyl (DULCOLAX) suppository 10 mg, 10 mg, rectal, DAILY PRN darbepoetin darius (ARANESP) injection 40 mcg, 0.45 mcg/kg, subcutaneous, Q7D dextrose 50 % in water IV 25 mL, 25 mL, intravenous, PRN [COMPLETED] fluconazole IV 400 mg IN NaCl (RTU), 400 mg, intravenous, ONCE FOLLOWED BY fluconazole (DIFLUCAN) tablet 400 mg, 400 mg, oral, Once per day on Mon glucagon (GLUCAGEN) injection 1 mg, 1 mg, intramuscular, PRN glucose chewable tablet 16 g, 16 g, oral, PRN guar gum (BENEFIBER) oral powder 1 packet, 1 packet, oral, DAILY heparin 1,000 unit/mL injection 1-3 mL, 1-3 mL, Intracatheter, 4B DIALYSIS PRN insulin lispro (HUMALOG) injection 1-16 Units, 1-16 Units, subcutaneous, TID W/MEALS insulin lispro (HUMALOG) injection 10 Units, 10 Units, subcutaneous, QPM MEAL [START ON 08/28/2019] insulin lispro (HUMALOG) injection 5 Units, 5 Units, subcutaneous, QAM MEAL insulin lispro (HUMALOG) injection 8 Units, 8 Units, subcutaneous, QLUNCH [START ON 08/28/2019] insulin NPH (HUMULIN N) injection 18 Units, 18 Units, subcutaneous, QA M insulin NPH (HUMULIN N) injection 8 Units, 8 Units, subcutaneous, HS lidocaine (LIDODERM) 5 % patch 1 patch, 1 patch, transdermal, Q24H lidocaine (LIDODERM) 5 % patch 1 patch, 1 patch, transdermal, Q24H metoprolol tartrate (LOPRESSOR) tablet 6.25 mg, 6.25 mg, oral, BID mycophenolate (CELLCEPT) capsule 1,000 mg, 1,000 mg, oral, BID (MMF) omeprazole (PRILOSEC) capsule 20 mg, 20 mg, oral, BEFORE BREAKFAST oxyCODONE (immediate release) (ROXICODONE) tablet 2.5-5 mg, 2.5-5 mg, oral, Q4H PRN polyethylene glycol (MIRALAX) packet 17 g, 17 g, oral, DAILY polyethylene glycol (MIRALAX) packet 34 g, 34 g, oral, TID PRN [START ON 08/31/2019] predniSONE (DELTASONE) tablet 15 mg, 15 mg, oral, DAILY [COMPLETED] predniSONE (DELTASONE) tablet 60 mg, 60 mg, oral, DAILY FOLLOWED BY [COMPLE JEANNETTE] predniSONE (DELTASONE) tablet 40 mg, 40 mg, oral, DAILY FOLLOWED BY [COMPLETED] pre dniSONE (DELTASONE) tablet 30 mg, 30 mg, oral, DAILY FOLLOWED BY predniSONE (DELTASONE) tablet 20 mg, 20 mg, oral, DAILY probiotic yogurt (MAGEN'S YOGURT), , oral, DAILY QUEtiapine (SEROQUEL) tablet 12.5 mg, 12.5 mg, oral, HS QUEtiapine (SEROQUEL) tablet 25 mg, 25 mg, oral, HS PRN senna-docusate (SENOKOT S) 8.6-50 mg 1 tablet, 1 tablet, oral, BID tacrolimus capsule 4 mg, 4 mg, oral, BID ( and ) tamsulosin (FLOMAX) capsule 0.4 mg, 0.4 mg, oral, DAILY trimethoprim-sulfamethoxazole (BACTRIM, SEPTRA) 80-400 mg 1 tablet, 1 tablet, oral, Once pe r day on Sat valGANciclovir (VALCYTE) tablet 450 mg, 450 mg, oral, Once per day on Sat Objective: Last Vitals: BP 150/74 (BP Location: Right upper arm, Patient Position: Sitting) | Pulse 8 2 | Temp 36.7 C (98.1 F) (Oral) | Resp 18 | Ht 1.803 m (5' 11") | Wt 105.6 kg (232 l b 12.9 oz) | SpO2 100% | BMI 32.47 kg/m | BSA 2.3 m Current FIO2 (%): 21 fraction of O2 (08/16/19 1329) O2 Delivery Device: None (room air) (08/27/19 1517) Last Vitals: BP 150/74 (BP Location: Right upper arm, Patient Position: Sitting) | Pulse 8 2 | Temp 36.7 C (98.1 F) (Oral) | Resp 18 | Ht 1.803 m (5' 11") | Wt 105.6 kg (232 l b 12.9 oz) | SpO2 100% | BMI 32.47 kg/m | BSA 2.3 m 24 Hour Vital Min/Max: Systolic (24hrs), Av , Min:135 , Max:153 Diastolic (24hrs), Av, Min:64, Max:81 Pulse Min: 79 Max: 93 Temp Min: 36.5 C (97.7 F) Max: 36.8 C (98.2 F) Resp Min: 14 Max: 18 SpO2 Min: 99 % Max: 100 % Intake/Output Summary (Last 24 hours) at 08/27/2019 1652 Last data filed at 08/27/2019 1400 Gross per 24 hour Intake 2175 ml Output 1500 ml Net 675 ml Physical Exam: General Appearance: Well developed, Well nourished, No apparent distress pleasant convers ant HEENT: EOMI, no exophthalmos, no chemosis, sclera anicteric Cardiovascular: regular rate and rhythm,3/6 holosystolic murmur best heard over leftl owersternal border Respiratory: Normal effort, in no respiratory distress, clear to auscultation bilaterally, no wheezes, crackles or rhonchi Abdominal: distended,normoactive bowel sounds, binder in place Extremities: warm and well-perfused,2+ bilateral lower extremity edema : no payton catheter Skin: no jaundice, no rashes or bruising Neurologic: Moving all extremities, no gross focal deficits Psychiatric: affect, mood and behavior normal Labs: CBC with diff last 72 hours (or 3 results) Recent Labs 08/25/1963108/26/1961108/27/19556 WBC 5.47 4.58 4.52 HB 8.2* 8.1* 7.8* HCT 24.5* 25.0* 23.7* PLT 67* 82* 94* NEUTROPERC 76.1* 69.0 73.5* LYMPHPERC 14.1* 19.4 18.4 MONOPERC 6.0 7.2 5.1 BASOPERC 0.2 0.4 0.4 EOSPERC 2.9 3.1* 2.2 Chemistries: Last 72 Hours (or 3 results): Recent Labs 08/25/1963108/26/1961108/27/1957 08/27/1915 08/27/19 1324 NA 136 -- 136 -- 135* -- -- K 4.7 -- 4.2 -- 4.6 -- -- CL 106 -- 104 -- 101 -- -- BICARB 24 -- 28 -- 27 -- -- BUN 103* -- 71* -- 76* -- -- CR 2.61* -- 2.30* -- 2.40* -- -- GLU 238* < > 221* < > 245* 186* 140* CA 8.3* -- 8.4* -- 8.7 -- -- MG 2.1 -- 2.0 -- 2.0 -- -- PO4 5.4* -- 4.5 -- 4.6 -- -- < > = values in this interval not displayed. Liver Tests: Last 72 hours (or 3 results) Recent Labs 08/25/1963108/26/1961108/27/19556 AST 9 9 14 ALT 40 37 40 TBILI 1.0 1.1 1.1 AP 33* 37* 47* ALB 3.7 3.7 3.8 TP 5.6* 5.9* 6.1* Imaging: No results found for: CXR Assessment: Doug Kirkkathydwight is a 54 y.o. males/p liver transplant for ESLD on08/16/19. Endocri nology has been consulted for glycemic management in the setting of coricosteroid and tube-f eed related hyperglycemia. Heis now takingBID NPH17 units qam and 7 units qpm tobett er match the effect of his oral prednisone, and 3-5-9 aspart mealtime insulin. He is on mode rate SSI for correction TID ac. After increasing evening NPH yesterday, Mr. Lawson's evening BG was still a little elevated to the high 100s. Recommend increasing evening NPH to 8 units, and morning NPH to 18 units. Continues to go high later in day, so will increase mealtime aspart insulin to 5 units with breakfast, 8 with lunch, 10 units with dinner. We also discussed that his transplant care te am can continue to titrate his insulin dose down as his prednisone dose decreases. He is currently taking 20 mg of prednisone per day, and will start 15 mg of prednisone star ting next week, then 10 mg, then 5 mg. We anticipate that his insulin needs may continue to decrease as his prednisone dose is tapered. Recommendations: NPH 18 units qam, 8 units qpm Short acting insulin 5 units with breakfast, 8 units with lunch, 10 units with dinner Moderate SSI TIC ac qhs Thank you for this consult. The endocrine consult team will continue to follow. Aston Rosado Medical Student [facility] [place] I have staffed the patient with consult attending Dr. Shukla who agrees with the assessment a nd recommendations as detailed above. Note written by IWONA Rosado. Patient was seen and examined by me, and plan of care was develo ped with the remainder of the endocrinology inpatient team. Peg Grace MD Endocrinology Fellow Pager [phone] Associated attestation - Johanna Shukla MD - 09/01/2019 10:33 AM PSTI personally interviewe d the patient, performed the pertinent parts of the physical examination and personally form ulated the plan with Dr. Grace, endocrine fellow. I agree with the fellow's documentation and have documented any additions or exceptions. Johanna Shukla MD, MS [employer] Division of Endocrinology, Diabetes and Clinical Nutrition Department of Internal Medicine [facility] [id number] [place] [address] Lakshmi Chatterjee, JAYDE - 08/27/2019 10:42 AM PSTDiabetes Education Follow-up Note Assessment Donell was sitting up in chair at time of visit. Reports that he is feeling well and is eager to discharge as soon as possible. Current inpatient regimen: NPH 17 units qAM, 7 units qPM Lispro 3 units with breakfast, 5 with lunch, 9 with dinner + moderate correction scal e Rx for insulin pens, glucometer and testing supplies were all sent prior to transplant. Co -pay $0, picked up by patient's family. Education provided Basal bolus regimen (as above) Use of correction scale Action profile of different insulin types: NPH vs Lispro Insulin storage and sharps disposal Frequency of blood sugar checks: before meals & at bedtime Impact of steroids on glucose levels and insulin needs BG targets: 80-130 before meals Hypoglycemia, s/s and how to treat When to call provider Logging BG levels and taking to follow-up appt Materials provided Still has handouts provided previously - mother took them home Personalized printout of insulin regimen - doses written in pencil for ability to update pr n Education outcome Donell was pleasant and eager to discuss plan with DM-RN today. He has been paying attention to the insulin orders and the daily visits from endocrinology. After review of insulin typ es and basal/bolus regimen today, he verbalized increased confidence in his ability to manag e insulin at home. He demonstrated good understanding of regimen -- was able to identify an d describe the different insulin types, appropriately adjust lispro doses for various mealti me scenarios, and use correction scale to accurately determine correction doses based on dif ferent BG levels. He declined additional hands-on practice with insulin pens, reporting that he feels comfort able with that skill. Does not currently have home glucometer in room, his mother will be b ringing it in later today. Plans to practice using it with RN prior to discharge. Recommendations Primary Team/Pharmacist: 1. Please order/update the following Rx as needed prior to discharge: Humalog Kwikpens Humulin N Kwikpens BD Katarina Ultra-Fine pen needles (4mm x 32G) - inject ing 4x/day, before meals & at bedtime Freestyle Lite test strips - testing 4x/day, before meals & at bedtime Freestyle lancets- testing 4x/day, before meals & at bedtime Unit RNs: 1. Please continue to have patient practice regimen (including correction scale), referen cing printout at bedside 2. Please update regimen with any changes by endo and be sure to update prior to discharge ! 3. Mother will be bringing in home glucometer & testing supplies (Freestyle Lite) - have h im demonstrate ability to use it prior to DC Nursing Assessment of Patient Stability Risk Moderately unstable relative to diabetes self-management considering new diagnosis, new to insulin therapy. Plan Following. Lakshmi Chatterjee RN, BSN Diabetes Nurse Specialist Adult Inpatient Diabetes Education & Support Services Pager: [phone] Aston Oneil - 019 5:31 PM PST Endocrinology Consult Service Progress Note Hospital Day:40 Interval events: BG was 160 at 9:31pm and 200 at 7am He did not receive his NPH today until noon due to AM catheter procedure He received 5 units mealtime with lunch with 4 units of correction Subjective: States he is feeling well today and looking forward to discharge. Says that he ate breakfast late today. Denies nausea/vomiting, chest pain. Inpatient Medications acetaminophen (TYLENOL) tablet 500 mg, 500 mg, oral, Q6H PRN albumin human (BUMINATE, FLEXBUMIN) 5 % injection 25 g, 25 g, intravenous, DAILY PRN amiodarone (CORDARONE) tablet 200 mg, 200 mg, oral, DAILY aspirin tablet 325 mg, 325 mg, oral, DAILY bisacodyl (DULCOLAX) suppository 10 mg, 10 mg, rectal, DAILY PRN dextrose 50 % in water IV 25 mL, 25 mL, intravenous, PRN [COMPLETED] fluconazole IV 400 mg IN NaCl (RTU), 400 mg, intravenous, ONCE FOLLOWED BY fluconazole (DIFLUCAN) tablet 400 mg, 400 mg, oral, Once per day on Sat glucagon (GLUCAGEN) injection 1 mg, 1 mg, intramuscular, PRN glucose chewable tablet 16 g, 16 g, oral, PRN guar gum (BENEFIBER) oral powder 1 packet, 1 packet, oral, DAILY heparin 1,000 unit/mL injection 1-3 mL, 1-3 mL, Intracatheter, 4B DIALYSIS PRN insulin lispro (HUMALOG) injection 1-16 Units, 1-16 Units, subcutaneous, TID W/MEALS insulin lispro (HUMALOG) injection 3 Units, 3 Units, subcutaneous, QAM MEAL insulin lispro (HUMALOG) injection 5 Units, 5 Units, subcutaneous, QLUNCH insulin lispro (HUMALOG) injection 9 Units, 9 Units, subcutaneous, QPM MEAL insulin NPH (HUMULIN N) injection 17 Units, 17 Units, subcutaneous, QAM insulin NPH (HUMULIN N) injection 7 Units, 7 Units, subcutaneous, HS lidocaine (LIDODERM) 5 % patch 1 patch, 1 patch, transdermal, Q24H lidocaine (LIDODERM) 5 % patch 1 patch, 1 patch, transdermal, Q24H metoprolol tartrate (LOPRESSOR) tablet 6.25 mg, 6.25 mg, oral, BID mycophenolate (CELLCEPT) capsule 1,000 mg, 1,000 mg, oral, BID (MMF) omeprazole (PRILOSEC) capsule 20 mg, 20 mg, oral, BEFORE BREAKFAST oxyCODONE (immediate release) (ROXICODONE) tablet 2.5-5 mg, 2.5-5 mg, oral, Q4H PRN polyethylene glycol (MIRALAX) packet 17 g, 17 g, oral, DAILY polyethylene glycol (MIRALAX) packet 34 g, 34 g, oral, TID PRN [COMPLETED] predniSONE (DELTASONE) tablet 60 mg, 60 mg, oral, DAILY FOLLOWED BY [COMPLE JEANNETTE] predniSONE (DELTASONE) tablet 40 mg, 40 mg, oral, DAILY FOLLOWED BY [COMPLETED] pre dniSONE (DELTASONE) tablet 30 mg, 30 mg, oral, DAILY FOLLOWED BY predniSONE (DELTASONE) tablet 20 mg, 20 mg, oral, DAILY probiotic yogurt (MAGEN'S YOGURT), , oral, DAILY QUEtiapine (SEROQUEL) tablet 25 mg, 25 mg, oral, HS QUEtiapine (SEROQUEL) tablet 25 mg, 25 mg, oral, HS PRN senna-docusate (SENOKOT S) 8.6-50 mg 1 tablet, 1 tablet, oral, BID sodium chloride 0.9 % (NS) IV infusion, 100-200 mL, intravenous, 4B DIALYSIS PRN tacrolimus capsule 4 mg, 4 mg, oral, BID ( and ) tamsulosin (FLOMAX) capsule 0.4 mg, 0.4 mg, oral, DAILY trimethoprim-sulfamethoxazole (BACTRIM, SEPTRA) 80-400 mg 1 tablet, 1 tablet, oral, Once pe r day on Sat [START ON 08/27/2019] valGANciclovir (VALCYTE) tablet 450 mg, 450 mg, oral, Once per day on Sat Objective: Last Vitals: BP 139/76 (BP Location: Right upper arm, Patient Position: Sitting) | Pulse 7 6 | Temp 36.5 C (97.7 F) (Oral) | Resp 14 | Ht 1.803 m (5' 11") | Wt 105.6 kg (232 l b 12.9 oz) | SpO2 100% | BMI 32.47 kg/m | BSA 2.3 m Current FIO2 (%): 21 fraction of O2 (08/16/19 1329) O2 Delivery Device: None (room air) (08/26/19 1610) Last Vitals: BP 139/76 (BP Location: Right upper arm, Patient Position: Sitting) | Pulse 7 6 | Temp 36.5 C (97.7 F) (Oral) | Resp 14 | Ht 1.803 m (5' 11") | Wt 105.6 kg (232 l b 12.9 oz) | SpO2 100% | BMI 32.47 kg/m | BSA 2.3 m 24 Hour Vital Min/Max: Systolic (24hrs), Av , Min:117 , Max:156 Diastolic (24hrs), Av, Min:45, Max:76 Pulse Min: 76 Max: 88 Temp Min: 36.4 C (97.5 F) Max: 36.8 C (98.2 F) Resp Min: 14 Max: 18 SpO2 Min: 97 % Max: 100 % Intake/Output Summary (Last 24 hours) at 08/26/2019 1732 Last data filed at 08/26/2019 1250 Gross per 24 hour Intake 620 ml Output 100 ml Net 520 ml Physical Exam: General Appearance: Well developed, Well nourished, No apparent distress pleasant convers ant HEENT: EOMI, no exophthalmos, no chemosis, sclera anicteric Cardiovascular: regular rate and rhythm,3/6 holosystolic murmur best heard over leftl owersternal border Respiratory: Normal effort, in no respiratory distress, clear to auscultation bilaterally, no wheezes, crackles or rhonchi Abdominal: distended, normoactive bowel sounds, binder in place Extremities: warm and well-perfused,2+ bilateral lower extremity edema : no payton catheter Skin: no jaundice, no rashes or bruising Neurologic: Moving all extremities, no gross focal deficits Psychiatric: affect, mood and behavior normal Labs: CBC with diff last 72 hours (or 3 results) Recent Labs 08/24/1955108/24/[id number]/25/1932 08/26/19 0612 WBC 4.47 5.54 5.47 4.58 HB 8.8* 8.3* 8.2* 8.1* HCT 27.0* 24.7* 24.5* 25.0* PLT 55* 60* 67* 82* NEUTROPERC 75.9* -- 76.1* 69.0 LYMPHPERC 13.4* -- 14.1* 19.4 MONOPERC 6.3 -- 6.0 7.2 BASOPERC 0.2 -- 0.2 0.4 EOSPERC 2.9 -- 2.9 3.1* Chemistries: Last 72 Hours (or 3 results): Recent Labs 08/24/1955108/25/1932 08/26/19 0612 08/26/19 0742 08/26/19 1202 NA 137 -- 136 -- 136 -- -- K 4.8 -- 4.7 -- 4.2 -- -- CL 105 -- 106 -- 104 -- -- BICARB 26 -- 24 -- 28 -- -- BUN 99* -- 103* -- 71* -- -- CR 2.37* -- 2.61* -- 2.30* -- -- GLU 228* < > 238* < > 221* 200* 201* CA 8.5* -- 8.3* -- 8.4* -- -- MG 2.1 -- 2.1 -- 2.0 -- -- PO4 6.1* -- 5.4* -- 4.5 -- -- < > = values in this interval not displayed. Liver Tests: Last 72 hours (or 3 results) Recent Labs 08/24/19 0552 08/25/19 0632 08/26/19 0612 AST 11 9 9 ALT 45 40 37 TBILI 1.1 1.0 1.1 AP 34* 33* 37* ALB 4.4 3.7 3.7 TP 6.3* 5.6* 5.9* Imaging: No results found for: CXR Assessment: Doug Lawson is a 54 y.o. 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 Endocrino logy has been consulted for glycemic management in the setting of coricosteroid and tube-fee d related hyperglycemia. Heis now takingBID NPH17 units qam and 6 units qpm tobetter match the effect of his oral prednisone, and 3-5-9 aspart mealtime insulin. He is on modera te SSI for correction TID ac. Mr. Lawson's BG was much better controlled overnight last night, only increasing to the 200s by 7am this morning. I recommend keeping his mealtime insulin the same at this time, since adjustments to mealtime insulin based on today's data would be inaccurate given his later me al this AM. Since he continues to go somewhat high overnight, recommend increasing his eveni ng NPH dose slightly to 7 units. He is currently on prednisone 20 mg, next week will start prednisone 15 mg for 1 week, then 10mg for 1 week then 5 mg. We anticipate that his insulin needs may continue to decrease as his prednisone dose is tapered. Recommendations: NPH 17 units qam, evening NPH increased to 7 units qpm Continue moderate SSI TIC ac qhs Is on prednisone 20 mg (08/24) x 1 week then prednisone 15 mg x 1 week > 10 mg x 1 week > 5 mg Thank you for this consult. The endocrine consult team will continue to follow. Aston Castillosh Medical Student [facility] I have staffed the patient with consult attending Dr. Shukla who agrees with the assessment a nd recommendations as detailed above. Electronically signed by Peg Grace MD at 2018 9:19 PM Jessica Brar MD - 08/25/2019 1:52 PM PST Endocrinology Consult Service Progress Note Hospital Day:39 Interval events: BG was ~200 mg/dL until about 1:40pm, then in low 300s from 4pm - 9pm. Received lispro 3 units for pm meal and 8 units of correction at 7pm, 6 units of NPH at 9:44pm. Was down to 2 06 by 7:37 am. Mentions overnight issue with leakage from his wound Patient had dialysis this morning. Mentions plan for a more permanent central catheter t o allow for discharge Subjective: Mr. Lawson is otherwise feeling great this morning. Denies nausea, vomiting, SOB , diarrhea, difficulty with urination. He says he has been dissatisfied by size of the meals available to him on his current diabetic/renal diet. Inpatient Medications acetaminophen (TYLENOL) tablet 500 mg, 500 mg, oral, Q6H PRN albumin human (BUMINATE, FLEXBUMIN) 5 % injection 25 g, 25 g, intravenous, DAILY PRN amiodarone (CORDARONE) tablet 200 mg, 200 mg, oral, DAILY aspirin tablet 325 mg, 325 mg, oral, DAILY bisacodyl (DULCOLAX) suppository 10 mg, 10 mg, rectal, DAILY PRN dextrose 50 % in water IV 25 mL, 25 mL, intravenous, PRN [COMPLETED] fluconazole IV 400 mg IN NaCl (RTU), 400 mg, intravenous, ONCE FOLLOWED BY fluconazole (DIFLUCAN) tablet 400 mg, 400 mg, oral, Once per day on Mon glucagon (GLUCAGEN) injection 1 mg, 1 mg, intramuscular, PRN glucose chewable tablet 16 g, 16 g, oral, PRN guar gum (BENEFIBER) oral powder 1 packet, 1 packet, oral, DAILY heparin 1,000 unit/mL injection 1-3 mL, 1-3 mL, Intracatheter, 4B DIALYSIS PRN insulin lispro (HUMALOG) injection 1-16 Units, 1-16 Units, subcutaneous, TID W/MEALS [START ON 08/26/2019] insulin lispro (HUMALOG) injection 3 Units, 3 Units, subcutaneous, QAM MEAL insulin lispro (HUMALOG) injection 5 Units, 5 Units, subcutaneous, QLUNCH insulin lispro (HUMALOG) injection 9 Units, 9 Units, subcutaneous, QPM MEAL insulin NPH (HUMULIN N) injection 17 Units, 17 Units, subcutaneous, QAM insulin NPH (HUMULIN N) injection 6 Units, 6 Units, subcutaneous, HS lidocaine (LIDODERM) 5 % patch 1 patch, 1 patch, transdermal, Q24H lidocaine (LIDODERM) 5 % patch 1 patch, 1 patch, transdermal, Q24H metoprolol tartrate (LOPRESSOR) tablet 6.25 mg, 6.25 mg, oral, BID mycophenolate (CELLCEPT) capsule 1,000 mg, 1,000 mg, oral, BID (MMF) omeprazole (PRILOSEC) capsule 20 mg, 20 mg, oral, BEFORE BREAKFAST oxyCODONE (immediate release) (ROXICODONE) tablet 2.5-5 mg, 2.5-5 mg, oral, Q4H PRN polyethylene glycol (MIRALAX) packet 17 g, 17 g, oral, DAILY polyethylene glycol (MIRALAX) packet 34 g, 34 g, oral, TID PRN [COMPLETED] predniSONE (DELTASONE) tablet 60 mg, 60 mg, oral, DAILY FOLLOWED BY [COMPLE JEANNETTE] predniSONE (DELTASONE) tablet 40 mg, 40 mg, oral, DAILY FOLLOWED BY [COMPLETED] pre dniSONE (DELTASONE) tablet 30 mg, 30 mg, oral, DAILY FOLLOWED BY predniSONE (DELTASONE) tablet 20 mg, 20 mg, oral, DAILY probiotic kefir (MAGEN'S KEFIR), , oral, BID QUEtiapine (SEROQUEL) tablet 25 mg, 25 mg, oral, HS QUEtiapine (SEROQUEL) tablet 25 mg, 25 mg, oral, HS PRN senna-docusate (SENOKOT S) 8.6-50 mg 1 tablet, 1 tablet, oral, BID sodium chloride 0.9 % (NS) IV infusion, 100-200 mL, intravenous, 4B DIALYSIS PRN tacrolimus capsule 4 mg, 4 mg, oral, BID ( and ) tamsulosin (FLOMAX) capsule 0.4 mg, 0.4 mg, oral, DAILY trimethoprim-sulfamethoxazole (BACTRIM, SEPTRA) 80-400 mg 1 tablet, 1 tablet, oral, Once pe r day on Sat [START ON 08/27/2019] valGANciclovir (VALCYTE) tablet 450 mg, 450 mg, oral, Once per day on Sat Objective: Last Vitals: BP 122/61 | Pulse 76 | Temp 36.6 C (97.9 F) | Resp 18 | Ht 1.803 m (5' 11") | Wt 105.6 kg (232 lb 12.9 oz) | SpO2 100% | BMI 32.47 kg/m | BSA 2.3 m Curren t FIO2 (%): 21 fraction of O2 (08/16/19 1329) O2 Delivery Device: None (room air) (08/25/19 0854) Last Vitals: BP 122/61 | Pulse 76 | Temp 36.6 C (97.9 F) | Resp 18 | Ht 1.803 m (5' 11") | Wt 105.6 kg (232 lb 12.9 oz) | SpO2 100% | BMI 32.47 kg/m | BSA 2.3 m 24 Hour Vital Min/Max: Systolic (24hrs), Av , Min:87 , Max:191 Diastolic (24hrs), Av, Min:46, Max:99 Pulse Min: 74 Max: 94 Temp Min: 36.4 C (97.5 F) Max: 36.9 C (98.4 F) Resp Min: 16 Max: 20 SpO2 Min: 100 % Max: 100 % Intake/Output Summary (Last 24 hours) at 08/25/2019 1356 Last data filed at 08/25/2019 0830 Gross per 24 hour Intake 2301 ml Output 800 ml Net 1501 ml Physical Exam: General Appearance: Well developed, Well nourished, No apparent distress pleasant convers ant HEENT: EOMI, no exophthalmos, no chemosis, sclera anicteric, dialysis catheter in place Cardiovascular: regular rate and rhythm,3/6 holosystolic murmur best heard over left lo wer sternal border. Respiratory: Normal effort, in no respiratory distress, clear to auscultation bilaterally, no wheezes, crackles or rhonchi. Abdominal: distended, normoactive bowel sounds, binder in place Extremities: warm and well-perfused, 2+ bilateral lower extremity edema : no payton catheter Skin: no jaundice, no rashes or bruising Neurologic: Moving all extremities, no gross focal deficits, no tremors Psychiatric: affect, mood and behavior normal Labs: CBC with diff last 72 hours (or 3 results) Recent Labs 08/23/1953508/24/1955108/24/19232208/25/19631 WBC 5.03 4.47 5.54 5.47 HB 8.5* 8.8* 8.3* 8.2* HCT 26.0* 27.0* 24.7* 24.5* PLT 47* 55* 60* 67* NEUTROPERC 76.7* 75.9* -- 76.1* LYMPHPERC 12.9* 13.4* -- 14.1* MONOPERC 7.0 6.3 -- 6.0 BASOPERC 0.2 0.2 -- 0.2 EOSPERC 2.4 2.9 -- 2.9 Chemistries: Last 72 Hours (or 3 results): Recent Labs 08/23/1936 08/24/1952 08/24/19213208/25/1932 08/25/19 0737 NA 137 -- 137 -- -- 136 -- K 4.7 -- 4.8 -- -- 4.7 -- CL 106 -- 105 -- -- 106 -- BICARB 25 -- 26 -- -- 24 -- BUN 99* -- 99* -- -- 103* -- CR 2.03* -- 2.37* -- -- 2.61* -- GLU 149* < > 228* < > 308* 238* 206* CA 8.1* -- 8.5* -- -- 8.3* -- MG 2.2 -- 2.1 -- -- 2.1 -- PO4 4.9* -- 6.1* -- -- 5.4* -- < > = values in this interval not displayed. Liver Tests: Last 72 hours (or 3 results) Recent Labs 08/23/1953508/24/1952 08/25/19 0632 AST 11 11 9 ALT 44 45 40 TBILI 1.1 1.1 1.0 AP 29* 34* 33* ALB 3.6 4.4 3.7 TP 5.4* 6.3* 5.6* Imaging: No results found for: CXR Assessment: Doug Lawson is a 54 y.o. 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 Endocrino logy has been consulted for glycemic management in the setting of coricosteroid and tube-fee d related hyperglycemia. He is now takingBID NPH 17 units qam and 6 units qpm to better ma tch the effect of his oral prednisone, as well as 3 units of aspart insulin with each meal. His BG level increased significantly again yesterday to the 300s in the late afternoon thro ugh the evening until at least 9:33pm. He received 3 units for his meal and 8 units correcti on, which decreased his BG to 206 by 737 AM. Given that his blood sugars have been increasin g starting after lunch and dinner, we recommend increasing his mealtime insulin later in the day. Recommend 3 units with breakfast, 5 units with lunch and 9 units with dinner. We also discussed meals with Mr. Lawson, and explained that we have no objections to increas ing his calories per meal (not necessarily the carbohydrates) if he feels the amount he has been able to eat is inadequate. 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 Recommendations: Is on prednisone 20 mg (08/24) x 1 week then prednisone 15 mg x 1 week > 10 mg x 1 week > 5 mg Continue NPH 17 units qam, 6 units qpm Increase mealtime insulin to 3 units with breakfast, 5 units with lunch and 9 units with dinner Moderate SSI TID AC qhs Thank you for this consult. The endocrine consult team will continue to follow. Aston [facility] Medical Student [facility] [place] I have staffed the patient with consult attending Dr. Shukla who agrees with the assessment a nd recommendations as detailed above. Associated attestation - Johanna Shukla MD - 08/26/2019 11:16 AM PSTI personally interviewe d the patient, performed the pertinent parts of the physical examination and personally form ulated the plan with Dr. Montemayor, endocrine fellow. I agree with the fellow's documentati on and have documented any additions or exceptions. Johanna Shukla MD, MS [employer] Division of Endocrinology, Diabetes and Clinical Nutrition Department of Internal Medicine [id number] [place] [address] Benja Sampson PA - 08/25/2019 11:36 AM PSTAssociated Order(s): IP CONSULT TO INTERVENTI ONAL RADIOLOGY Interventional Radiology Consult Note INTERVENTIONAL RADIOLOGY CONSULTATION Consult Date of Service: 08/25/2019 Requesting Provider: Marsha Garcai MD Interventional Radiology Attending: Kris Metz MD PHD Reason for Consult: Tunneled dialysis catheter placement (Routine) Patient Location: 4A (Room /) Assessment: 54 y.o. male DM2, A. fib/a flutter on metoprolol and amiodarone, alcoholic cirrhosis S/P or thotopic liver transplant on 08/16 who is post transplant course has been complicated by an acute on chronic kidney injury requiring HD for whom a tunneled dialysis catheter has been r equested. Primary team is anticipating discharge in the coming days and believe he will req uire HD after discharge. A detailed PAR Q conference was held with Donell discussing the benef its and potential risks of tunneled central line placement including, but not limited to hem orrhage, infection, hemopneumothorax, air embolus, catheter migration or malfunction requiri ng repeat procedures, and complications related to sedation including potential . Afte r this discussion, Donell wishes to pursue tunneled central venous catheter placement. Recommendation: Image guided tunneled dialysis catheter placement by IR tomorrow (08/26) -N.p.o. at midnight until after procedure HPI: 54 y.o. male with DM2, A. fib/a flutter on metoprolol and amiodarone, alcoholic cirrhosis S /P orthotopic liver transplant on 08/16 who is post transplant course has been complicated b y an acute on chronic kidney injury requiring hemodialysis via a right IJV temp line (placed 08/22), with the need for ongoing HD for whom a tunneled dialysis catheter has been requeste d. He is scheduled to dialyze today 08/25. He has no leukocytosis, has been afebrile, and th ere are no pending blood cultures. He has been making urine (approximately 1.5 to 2 L/day U OP/day). He has anasarca, but reports that it is significantly better than prior to startin g dialysis Today his potassium is WNL at 4.7, platelets 67. He is on aspirin 325, but no anticoagulation. ROS: The review of systems performed was negative except as per HPI. Current Medications: Medications Scheduled Medication Dose/Rate, Route, Frequency Last Action amiodarone (CORDARONE) tablet 200 mg 200 mg, oral, DAILY Given: 08/25 754 aspirin tablet 325 mg 325 mg, oral, DAILY Given: 08/25 754 fluconazole (DIFLUCAN) tablet 400 mg 400 mg, oral, Q MON Given: 08/24 827 guar gum (BENEFIBER) oral powder 1 packet 1 packet, oral, DAILY Given: 08/25 754 insulin lispro (HUMALOG) injection 1-16 Units 4 Units, subQ, TID W/MEALS Given: 08/25 755 insulin lispro (HUMALOG) injection 3 Units 3 Units, subQ, QAM MEAL Ordered insulin lispro (HUMALOG) injection 5 Units 5 Units, subQ, QLUNCH Ordered insulin lispro (HUMALOG) injection 9 Units 9 Units, subQ, QPM MEAL Ordered insulin NPH (HUMULIN N) injection 17 Units 17 Units, subQ, QAM Given: 08/25 755 insulin NPH (HUMULIN N) injection 6 Units 6 Units, subQ, HS Given: 08/24 2144 lidocaine (LIDODERM) 5 % patch 1 patch 1 patch, TD, Q24H Applied Patch: 08/23 1651 lidocaine (LIDODERM) 5 % patch 1 patch 1 patch, TD, Q24H Applied Patch: 08/23 1651 metoprolol tartrate (LOPRESSOR) tablet 6.25 mg 6.25 mg, oral, BID Given: 08/25 754 mycophenolate (CELLCEPT) capsule 1,000 mg 1,000 mg, oral, BID (MMF) Given: 08/25 754 omeprazole (PRILOSEC) capsule 20 mg 20 mg, oral, BEFORE BREAKFAST Given: 08/25 623 polyethylene glycol (MIRALAX) packet 17 g 17 g, oral, DAILY Given: 08/20 835 predniSONE (DELTASONE) tablet 20 mg 20 mg, oral, DAILY Given: 08/25 754 probiotic kefir (MAGEN'S KEFIR) No Dose/Rate, oral, BID Given - Food: 08/24 734 QUEtiapine (SEROQUEL) tablet 25 mg 25 mg, oral, HS Given: 08/24 2125 senna-docusate (SENOKOT S) 8.6-50 mg 1 tablet 1 tablet, oral, BID Given: 08/22 2203 tacrolimus capsule 4 mg 4 mg, oral, BID ( and ) Given: 08/25 754 tamsulosin (FLOMAX) capsule 0.4 mg 0.4 mg, oral, DAILY Given: 08/25 754 trimethoprim-sulfamethoxazole (BACTRIM, SEPTRA) 80-400 mg 1 tablet 1 tablet, oral, Q - - Given: 08/24 828 valGANciclovir (VALCYTE) tablet 450 mg 450 mg, oral, DAILY Given: 08/25 754 PRN Medication Dose/Rate, Route, Frequency Last Action acetaminophen (TYLENOL) tablet 500 mg 500 mg, oral, Q6H PRN Given: 08/21 122 albumin human (BUMINATE, FLEXBUMIN) 5 % injection 25 g 25 g, IV, DAILY PRN Ordered bisacodyl (DULCOLAX) suppository 10 mg 10 mg, rect, DAILY PRN Ordered dextrose 50 % in water IV 25 mL 25 mL, IV, PRN Ordered glucagon (GLUCAGEN) injection 1 mg 1 mg, IM, PRN Ordered glucose chewable tablet 16 g 16 g, oral, PRN Given: 08/22 1009 heparin 1,000 unit/mL injection 1-3 mL 1-3 mL, IK, 4B DIALYSIS PRN Ordered oxyCODONE (immediate release) (ROXICODONE) tablet 2.5-5 mg 5 mg, oral, Q4H PRN Given: 0146 polyethylene glycol (MIRALAX) packet 34 g 34 g, oral, TID PRN Ordered QUEtiapine (SEROQUEL) tablet 25 mg 25 mg, oral, HS PRN Given: 08/18 2114 sodium chloride 0.9 % (NS) IV infusion 100-200 mL, IV, 4B DIALYSIS PRN Ordered Allergies: Allergies Allergen Reactions Doxycycline Hives and Rash Past Medical History: Past Medical History: Diagnosis Date Cirrhosis (HCC) CKD (chronic kidney disease) Patient Active Problem List Diagnosis Date Noted Liver transplant status (HCC) 08/17/2019 Severe protein-calorie malnutrition (HCC) 07/31/2019 Anemia 07/24/2019 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 Asymptomatic microscopic hematuria 05/20/2019 Left nephrolithiasis 05/20/2019 Overview Note: 05/19/2019: asymptomatic 4 mm left renal stone SVT (supraventricular tachycardia) (HCC) 04/21/2019 Paroxysmal A-fib (HCC) 04/21/2019 Chronic kidney disease, unspecified CKD stage 04/21/2019 Cirrhosis (HCC) CKD (chronic kidney disease) Alcoholic cirrhosis of liver with ascites (HCC) 02/27/2019 Chronic kidney disease 02/27/2019 Hepatorenal syndrome (HCC) 02/27/2019 Abnormal echocardiogram 02/27/2019 Surgical History: No date: LEG SURGERY Social History: Social History Tobacco Use Smoking status: Never Smoker Smokeless tobacco: Former User Types: Chew Substance Use Topics Alcohol use: No Frequency: Never Drug use: No Family History: Family History Problem Relation Liver cancer Neg Hx Last 24 hour min/max Temp: 36.6 C (97.9 F) Temp Min: 36.4 C (97.5 F) Max: 36.9 C (98.4 F) Pulse: 81 Pulse Min: 75 Max: 94 Resp: 16 Resp Min: 16 Max: 20 BP: 116/56 BP Min: 87/46 Max: 150/76 SpO2: 100 % SpO2 Min: 100 % Max: 100 % Body mass index is 32.47 kg/m. Physical Examination: General: pleasant adult male, resting comfortably while receiving dialysis, NAD Neuro: A&O x 3, CN 2-12 grossly intact, follows commands, answers questions appropriately HEENT: no scleral icterus Neck: RIJV temp dialysis line, supple, nontender, no cervical adenopathy Pulmonary: CTAB, speaking full sentences, breathing nonlabored Cardiac: RRR, 2/6 systolic murmur, Abdomen: Anasarca, healing surgical incisionsoft, NT, normoactive BS, no guarding or rigidi ty Skin: warm & dry, no jaundice Extremities: BLE 2+ pitting edema; warm, dry Date 08/24/19 1500 - 08/25/19 0659 08/25/19 0700 - 08/26/19 0659 Shift 0741-5392 2719-5422 24 Hour Total 6127-9855 0656-2170 4095-7148 24 Hour Total INTAKE P.O. 2060 2701 Shift Total 2060 2701 OUTPUT Urine(mL/kg/hr) 500(0.6) 300(0.4) 800(0.3) Shift Total(mL/kg) 500(4.7) 300(2.8) 800(7.6) Weight (kg) 105.6 105.6 105.6 105.6 105.6 105.6 105.6 Labs: Lab Results Component Value Date WBC 5.47 08/25/2019 HB 8.2 08/25/2019 HCT 24.5 08/25/2019 PLT 67 08/25/2019 MCV 98.4 08/25/2019 RDW 60.0 08/25/2019 Lab Results Component Value Date NA 136 08/25/2019 K 4.7 08/25/2019 CL 106 08/25/2019 BICARB 24 08/25/2019 BUN 103 08/25/2019 CR 2.61 08/25/2019 GLU 206 08/25/2019 CA 8.3 08/25/2019 AST 9 08/25/2019 ALT 40 08/25/2019 AP 33 08/25/2019 TBILI 1.0 08/25/2019 TP 5.6 08/25/2019 ALB 3.7 08/25/2019 DIRBILI 4.2 07/07/2019 ANIONGAP 6 08/25/2019 ANIONALBCOR 6 08/25/2019 Lab Results Component Value Date APTT 30.9 08/25/2019 FIBRINOGEN 185 08/25/2019 Lab Results Component Value Date INRPT 1.36 (H) 08/25/2019 Imaging: Independent review of CXR dated 08/22/19: FINDINGS: A right internal jugular introducer sheath containing a central venous catheter has been pl aced with the tip terminating in the mid SVC. The endotracheal tube, enteric tube, and feedi ng tube have been removed. Low lung volumes are redemonstrated. Mild left retrocardiac atelectasis is markedly improve d. There is no new focal consolidation or pulmonary edema. A trace right pleural effusion is suspected. There is no left pleural effusion or pneumothorax. The cardiomediastinal contour is stable. The no acute osseus abnormality is noted. IMPRESSION: Right internal jugular introducer sheath containing a central venous catheter with tip term inating in the mid SVC. No pneumothorax. Low lung volumes with improved mild left retrocardiac atelectasis. PRE-SEDATION EVALUATION ADVERSE DRUG REACTIONS: Allergies Allergen Reactions Doxycycline Hives and Rash RED FLAGS: None PREMEDICATIONS NEEDED: None Metformin: No Anticoagulants: None Planned access point(S): RIJV Current level of pain: No Planned level of sedation: Moderate P.O. status: NPO after midnight for procedure Airway History: Are you having breathing problems today? no Are you having chest pain or discomfort today? no Have you had a prior history of difficult intubation or ventilation? no Do you have noisy breathing (stridor)? no Do you snore? yes Do you have documented sleep apnea? no Previous sedation/anesthesia experience and NPO status documented on nursing note, which I have reviewed. Airway Examination: normal airway ASA Status: 3. Sedation Assessment: I have reviewed Mr. Lawson's history and conducted the physical examination as documented ab ove. This patient is appropriate for moderate sedation. Mr. Lawson has provided written consent for sedation with this procedure. Sedation Plan: Procedure with moderate sedation. GUMARO Lackey Aston Oneil - 01/2019 11:57 AM PST Endocrinology Consult Service Progress Note Hospital Day:38 Interval events: High BG yesterday evening, up to 347 at 9:52pm, 339 at 11:52pm. Received 2 units of lisp ro for correction at 12:18 am, and down to 209 at 7:18am this morning. Subjective: Mr. Lawson mentions today that he has been eating large amounts of food at each meal. Yester day morning he ate multiple breakfast burritos, for lunch he had a burger brennen whopper, and for dinner last night he had multiple servings of fried chicken and coleslaw. He says he has been eating multiple servings in part because his appetite is strong, but also because he i s anxious about fasting from when he has dinner at 6pm until his breakfast around 7:30am, du ring which he feels it is difficult for him to obtain food if he needs it. Otherwise states he is feeling well today. No nausea/vomiting, SOB. Inpatient Medications acetaminophen (TYLENOL) tablet 500 mg, 500 mg, oral, Q6H PRN albumin human (BUMINATE, FLEXBUMIN) 5 % injection 25 g, 25 g, intravenous, DAILY PRN amiodarone (CORDARONE) tablet 200 mg, 200 mg, oral, DAILY aspirin tablet 325 mg, 325 mg, oral, DAILY bisacodyl (DULCOLAX) suppository 10 mg, 10 mg, rectal, DAILY PRN dextrose 50 % in water IV 25 mL, 25 mL, intravenous, PRN [COMPLETED] fluconazole IV 400 mg IN NaCl (RTU), 400 mg, intravenous, ONCE FOLLOWED BY fluconazole (DIFLUCAN) tablet 400 mg, 400 mg, oral, Once per day on Sat glucagon (GLUCAGEN) injection 1 mg, 1 mg, intramuscular, PRN glucose chewable tablet 16 g, 16 g, oral, PRN guar gum (BENEFIBER) oral powder 1 packet, 1 packet, oral, DAILY insulin lispro (HUMALOG) injection 1-16 Units, 1-16 Units, subcutaneous, TID W/MEALS insulin NPH (HUMULIN N) injection 17 Units, 17 Units, subcutaneous, QAM insulin NPH (HUMULIN N) injection 6 Units, 6 Units, subcutaneous, HS lidocaine (LIDODERM) 5 % patch 1 patch, 1 patch, transdermal, Q24H lidocaine (LIDODERM) 5 % patch 1 patch, 1 patch, transdermal, Q24H metoprolol tartrate (LOPRESSOR) tablet 6.25 mg, 6.25 mg, oral, BID mycophenolate (CELLCEPT) capsule 1,000 mg, 1,000 mg, oral, BID (MMF) omeprazole (PRILOSEC) capsule 20 mg, 20 mg, oral, BEFORE BREAKFAST oxyCODONE (immediate release) (ROXICODONE) tablet 2.5-5 mg, 2.5-5 mg, oral, Q4H PRN polyethylene glycol (MIRALAX) packet 17 g, 17 g, oral, DAILY polyethylene glycol (MIRALAX) packet 34 g, 34 g, oral, TID PRN [COMPLETED] predniSONE (DELTASONE) tablet 60 mg, 60 mg, oral, DAILY FOLLOWED BY [COMPLE JEANNETTE] predniSONE (DELTASONE) tablet 40 mg, 40 mg, oral, DAILY FOLLOWED BY [COMPLETED] pre dniSONE (DELTASONE) tablet 30 mg, 30 mg, oral, DAILY FOLLOWED BY predniSONE (DELTASONE) tablet 20 mg, 20 mg, oral, DAILY probiotic kefir (MAGEN'S KEFIR), , oral, BID QUEtiapine (SEROQUEL) tablet 25 mg, 25 mg, oral, HS QUEtiapine (SEROQUEL) tablet 25 mg, 25 mg, oral, HS PRN senna-docusate (SENOKOT S) 8.6-50 mg 1 tablet, 1 tablet, oral, BID tacrolimus capsule 4 mg, 4 mg, oral, BID ( and ) tamsulosin (FLOMAX) capsule 0.4 mg, 0.4 mg, oral, DAILY trimethoprim-sulfamethoxazole (BACTRIM, SEPTRA) 80-400 mg 1 tablet, 1 tablet, oral, Once pe day on Sat valGANciclovir (VALCYTE) tablet 450 mg, 450 mg, oral, DAILY Objective: Last Vitals: BP 160/80 (BP Location: Right upper arm, Patient Position: Sitting) | Pulse 8 8 | Temp 36.7 C (98.1 F) (Oral) | Resp 18 | Ht 1.803 m (5' 11") | Wt 105.6 kg (232 l b 12.9 oz) | SpO2 100% | BMI 32.47 kg/m | BSA 2.3 m Current FIO2 (%): 21 fraction of O2 (08/16/19 1329) O2 Delivery Device: None (room air) (08/24/19 4047) Last Vitals: BP 160/80 (BP Location: Right upper arm, Patient Position: Sitting) | Pulse 8 8 | Temp 36.7 C (98.1 F) (Oral) | Resp 18 | Ht 1.803 m (5' 11") | Wt 105.6 kg (232 l b 12.9 oz) | SpO2 100% | BMI 32.47 kg/m | BSA 2.3 m 24 Hour Vital Min/Max: Systolic (24hrs), Av , Min:138 , Max:160 Diastolic (24hrs), Av, Min:65, Max:80 Pulse Min: 77 Max: 88 Temp Min: 36.5 C (97.7 F) Max: 36.8 C (98.2 F) Resp Min: 16 Max: 18 SpO2 Min: 98 % Max: 100 % Intake/Output Summary (Last 24 hours) at 08/24/2019 1158 Last data filed at 08/24/2019 0747 Gross per 24 hour Intake 1950 ml Output 1100 ml Net 850 ml Physical Exam: General Appearance: Well developed, Well nourished, No apparent distress pleasant conversa nt HEENT: EOMI, no exophthalmos, no chemosis, sclera anicteric Cardiovascular: regular rate and rhythm, 3/6 holosystolic murmur best heard over left lowe r sternal border. Respiratory: Normal effort, in no respiratory distress, clear to auscultation bilaterally, no wheezes, crackles or rhonchi. Abdominal: soft, distended, no rebound, no guarding, bowel sounds present Extremities: warm and well-perfused, 2+ bilateral lower extremity edema. Lower extremities wrapped in GABO bandages : no payton catheter Skin: no jaundice, no rashes or bruising Neurologic: Moving all extremities, no gross focal deficits, no tremors Psychiatric: affect, mood and behavior normal Labs: CBC with diff last 72 hours (or 3 results) Recent Labs 08/22/19 0539 08/23/19 0536 08/24/19 0552 WBC 6.54 5.03 4.47 HB 9.8* 8.5* 8.8* HCT 29.3* 26.0* 27.0* PLT 53* 47* 55* NEUTROPERC 79.5* 76.7* 75.9* LYMPHPERC 11.6* 12.9* 13.4* MONOPERC 6.1 7.0 6.3 BASOPERC 0.2 0.2 0.2 EOSPERC 1.2 2.4 2.9 Chemistries: Last 72 Hours (or 3 results): Recent Labs 08/22/19 0539 08/23/19 0536 08/24/19 0552 08/24/19 0718 08/24/19 1001 NA 135* -- 137 -- 137 -- -- K 5.4* -- 4.7 -- 4.8 -- -- CL 104 -- 106 -- 105 -- -- BICARB 19* -- 25 -- 26 -- -- BUN 150* -- 99* -- 99* -- -- CR 2.58* -- 2.03* -- 2.37* -- -- GLU 103* < > 149* < > 228* 209* 209* CA 8.5* -- 8.1* -- 8.5* -- -- MG 2.4 -- 2.2 -- 2.1 -- -- PO4 6.8* -- 4.9* -- 6.1* -- -- < > = values in this interval not displayed. Liver Tests: Last 72 hours (or 3 results) Recent Labs 08/22/19 0539 08/23/19 0536 08/24/19 0552 AST 13 11 11 ALT 59 44 45 TBILI 1.3* 1.1 1.1 AP 32* 29* 34* ALB 3.9 3.6 4.4 TP 5.7* 5.4* 6.3* Imaging: No results found for: CXR Assessment: Doug Lawson is a 54 y.o. 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 Endocrinology has been consulted for glycemic management in t he setting of coricosteroid and tube-feed related hyperglycemia. He is now taking BID NPH 17 units qam and 6 units qpm to better match the effect of his oral prednisone. His BG was well controlled early yesterday in the low 100s until the evening, when it incre ased significantly to 238 at 4:18pm, 347 at 9:52pm and 339 at 11:52pm. He was eating large a haris of food at each meal, due in part to anxiety over going without eating for an extende d period of time. I explained that he shouldn't need to overeat because of his insulin regim en and discussed his high overnight blood sugar levels. He expressed some understanding. Given that his BG increased later in the day, particularly after his evening meal, I believ e it would be beneficial to start a regular mealtime insulin regimen. His BG remained fairly constant with a lispro correction dose of 4 units this morning, and he corrected 120 points overnight after 2 units of insulin, recommend starting 3 units of lispro insulin with each meal. We will keep the patient's NPH regimen the same for now. May need to consider decreasing PAPER COATER H in future now that he is taking 20 mg of prednisone daily for the next week. Recommendations: Continue NPH 17 units qam, 6 units qpm No bedtime correction dose today Begin 3 units lispro insulin with each meal, starting with dinner today Check BG level overnight Thank you for this consult. The endocrine consult team will continue to follow. [facility] Medical Student [facility] [place] I have staffed the patient with consult attending Dr. Shukla who agrees with the assessment a nd recommendations as detailed above. gnacio Inman P harmD - 08/24/2019 7:55 AM PST Transplant Pharmacy Monitoring & Education: Donell is a 54 y.o. M with history of EtOH cirrhosis/hepatitis 06/2018 c/b ascites and HRS typ e 2, spur cell anemia, iron overload admitted 07/17/2019 for AMS, hyperglycemia, and frequent falls. Received OLTx 08/16/19. Patient's course was c/b delayed kidney function and AMS. Labs/vitals: Recent Labs 08/22/19 0539 08/23/19 0536 08/24/19 0552 WBC 6.54 5.03 4.47 HB 9.8* 8.5* 8.8* HCT 29.3* 26.0* 27.0* PLT 53* 47* 55* Recent Labs 08/22/19 0539 08/23/19 0536 08/24/19 0552 K 5.4* 4.7 4.8 BUN 150* 99* 99* CR 2.58* 2.03* 2.37* MG 2.4 2.2 2.1 CA 8.5* 8.1* 8.5* PO4 6.8* 4.9* 6.1* TBILI 1.3* 1.1 1.1 AST 13 11 11 ALT 59 44 45 Recent Labs 08/22/19 0539 08/23/19 0536 FK506 8.6 4.2* Intake/Output Summary (Last 24 hours) at 08/24/2019 0756 Last data filed at 08/24/2019 0747 Gross per 24 hour Intake 2610 ml Output 1925 ml Net 685 ml Immunosuppression: -Tacrolimus -- Goal level 6-10 ng/mL -Azathioprine--> MMF 1000mg po twice daily due to DDI with amiodarone - Prednisone per taper schedule Prophylaxis: Viral: CMV Serostatus (D-/R+) valganciclovir (aka VALCYTE) 450mg daily x 3 months (End date : 11/15/2019) PJP: trimethoprim-sulfamethoxazole SS (aka BACTRIM SS) 1 tablet on Mondays, Wednesdays, an d Fridays x 6 months (End date: 02/14/2020) Fungal: fluconazole (aka DIFLUCAN) 400 mg weekly on Mondays x 2 months (End date: 9 ) Education: - Provided patient with written & verbal education regarding proper medication dosing/admin istration, monitoring, side effects, drug interactions, and the importance of compliance. - Special instructions were provided regarding medication administration and dose timing fo r lab draw days. -Explained the importance of following medications calendar provided by transplant as the d oses of medications will change frequently, and the need to contact clinic prior to initiati ng medications that are not on this list. - highlighted home medications that will not be resumed post-transplant and/or alternate th erapy would be used in its place. - discussed options for pain control and provided specific instructions re: avoiding the us e of NSAIDs following transplant. - Reinforced diabetic education including, appropriate times to check BGs, proper dosing/ad ministration of each insulin type, including sliding scale regimen. Discussed s/sx of hypo v s. Hyperglycemia and management of each. Also provided instructions for when to seek medical attention. - A total of 30 minutes were spent in the teaching of this patient. Discharge planning: - Discharge prescriptions will be written by the medical team and sent to patient's preferr ed pharmacy in preparation for discharge - At the time of discharge will provide additional education, a pill box for medication org anization and an updated medication list. - Insurance issues: none Pharmacy Preferences: [facility] [address] [place] [address] Hours: 8am-9pm Mon-fri; 9-5:30pm Sat-sun E-Prescribing: Yes E-Prescribing Control Substances: Yes [facility] [address] [place] [address] Hours: 9am-7pm Mon-fri / 9am-6pm Sat / Closed Sun E-Prescribing: Yes E-Prescribing Control Substances: Yes [address] [place] [address] Hours: 8am-6pm Mon-fri E-Prescribing: Yes E-Prescribing Control Substances: Yes [facility]. [address], [place] [address] Hours: 8am-430pm Sat-saturday/closed Sat&sun E-Prescribing: Yes E-Prescribing Control Substances: Yes If there are any questions, please contact Ignacio Inman PharmD at pager # [phone]. Thank you, Ignacio Inman PharmD Pager [phone] Kenneth Sifuentes MD - 08/23/2019 10:36 AM PST Endocrinology Consult Service Progress Note Hospital Day:37 Interval events: High BG of 211 at 11:10pm, most recently 122 as of this morning at 7:25am Received dialysis yesterday evening Subjective: Mr. Lawson notes that he is feeling well today and that he has a good appetite. He ate a lar ge breakfast this morning including potatoes and a breakfast burrito. He mentions he has not been moving as much this morning because of his dialysis catheter. Inpatient Medications acetaminophen (TYLENOL) tablet 500 mg, 500 mg, oral, Q6H PRN albumin human (BUMINATE, FLEXBUMIN) 25 % injection 25 g, 25 g, intravenous, Q8H albumin human (BUMINATE, FLEXBUMIN) 5 % injection 25 g, 25 g, intravenous, DAILY PRN amiodarone (CORDARONE) tablet 200 mg, 200 mg, oral, DAILY aspirin tablet 325 mg, 325 mg, oral, DAILY bisacodyl (DULCOLAX) suppository 10 mg, 10 mg, rectal, DAILY PRN dextrose 50 % in water IV 25 mL, 25 mL, intravenous, PRN [COMPLETED] fluconazole IV 400 mg IN NaCl (RTU), 400 mg, intravenous, ONCE FOLLOWED BY fluconazole (DIFLUCAN) tablet 400 mg, 400 mg, oral, Once per day on Sat glucagon (GLUCAGEN) injection 1 mg, 1 mg, intramuscular, PRN glucose chewable tablet 16 g, 16 g, oral, PRN guar gum (BENEFIBER) oral powder 1 packet, 1 packet, oral, DAILY insulin lispro (HUMALOG) injection 1-16 Units, 1-16 Units, subcutaneous, QID insulin NPH (HUMULIN N) injection 17 Units, 17 Units, subcutaneous, QAM insulin NPH (HUMULIN N) injection 8 Units, 8 Units, subcutaneous, HS lidocaine (LIDODERM) 5 % patch 1 patch, 1 patch, transdermal, Q24H lidocaine (LIDODERM) 5 % patch 1 patch, 1 patch, transdermal, Q24H metoprolol tartrate (LOPRESSOR) tablet 6.25 mg, 6.25 mg, oral, BID mycophenolate (CELLCEPT) capsule 1,000 mg, 1,000 mg, oral, BID (MMF) omeprazole (PRILOSEC) capsule 20 mg, 20 mg, oral, BEFORE BREAKFAST oxyCODONE (immediate release) (ROXICODONE) tablet 2.5-5 mg, 2.5-5 mg, oral, Q4H PRN polyethylene glycol (MIRALAX) packet 17 g, 17 g, oral, DAILY polyethylene glycol (MIRALAX) packet 34 g, 34 g, oral, TID PRN [COMPLETED] predniSONE (DELTASONE) tablet 60 mg, 60 mg, oral, DAILY FOLLOWED BY [COMPLE JEANNETTE] predniSONE (DELTASONE) tablet 40 mg, 40 mg, oral, DAILY FOLLOWED BY [COMPLETED] pre dniSONE (DELTASONE) tablet 30 mg, 30 mg, oral, DAILY FOLLOWED BY [START ON 08/24/2019] pr edniSONE (DELTASONE) tablet 20 mg, 20 mg, oral, DAILY probiotic kefir (MAGEN'S KEFIR), , oral, BID QUEtiapine (SEROQUEL) tablet 25 mg, 25 mg, oral, HS QUEtiapine (SEROQUEL) tablet 25 mg, 25 mg, oral, HS PRN senna-docusate (SENOKOT S) 8.6-50 mg 1 tablet, 1 tablet, oral, BID tacrolimus capsule 4 mg, 4 mg, oral, BID ( and ) tamsulosin (FLOMAX) capsule 0.4 mg, 0.4 mg, oral, DAILY trimethoprim-sulfamethoxazole (BACTRIM, SEPTRA) 80-400 mg 1 tablet, 1 tablet, oral, Once pe day on Sat valGANciclovir (VALCYTE) tablet 450 mg, 450 mg, oral, DAILY Objective: Last Vitals: BP 155/66 | Pulse 82 | Temp 36.9 C (98.4 F) | Resp 16 | Ht 1.803 m (5' 11") | Wt 103.9 kg (229 lb 0.9 oz) | SpO2 100% | BMI 31.95 kg/m | BSA 2.28 m Rachel t FIO2 (%): 21 fraction of O2 (08/16/19 1329) O2 Delivery Device: None (room air) (08/23/19 0800) Last Vitals: BP 155/66 | Pulse 82 | Temp 36.9 C (98.4 F) | Resp 16 | Ht 1.803 m (5' 11") | Wt 103.9 kg (229 lb 0.9 oz) | SpO2 100% | BMI 31.95 kg/m | BSA 2.28 m 24 Hour Vital Min/Max: Systolic (24hrs), Av , Min:120 , Max:155 Diastolic (24hrs), Av, Min:64, Max:78 Pulse Min: 73 Max: 85 Temp Min: 36 C (96.8 F) Max: 36.9 C (98.4 F) Resp Min: 16 Max: 20 SpO2 Min: 99 % Max: 100 % Intake/Output Summary (Last 24 hours) at 08/23/2019 1037 Last data filed at 08/23/2019 0900 Gross per 24 hour Intake 2495 ml Output 2050 ml Net 445 ml Physical Exam: General Appearance: Well developed, Well nourished, No apparent distress pleasant conversa nt HEENT: EOMI, no exophthalmos, no chemosis, sclera anicteric Cardiovascular: regular rate and rhythm, 3/6 holosystolic murmur best heard over left uppe r sternal border. Respiratory: Normal effort, in no respiratory distress, clear to auscultation bilaterally, no wheezes, crackles or rhonchi. Abdominal: soft, non-tender, distended, no rebound, no guarding, bowel sounds present, no o rganomegaly noted. Extremities: warm and well-perfused, no edema : no payton catheter. Skin: no jaundice, no rashes or bruising Neurologic: Moving all extremities, no gross focal deficits, no tremors Psychiatric: affect, mood and behavior normal Labs: CBC with diff last 72 hours (or 3 results) Recent Labs 08/21/19 0658 08/22/19 0539 08/23/19 0536 WBC 10.19 6.54 5.03 HB 11.0* 9.8* 8.5* HCT 34.2* 29.3* 26.0* PLT 68* 53* 47* NEUTROPERC 79.2* 79.5* 76.7* LYMPHPERC 10.2* 11.6* 12.9* MONOPERC 7.6 6.1 7.0 BASOPERC 0.2 0.2 0.2 EOSPERC 1.5 1.2 2.4 Chemistries: Last 72 Hours (or 3 results): Recent Labs 08/21/19 0658 08/22/19 0539 08/22/19 2310 08/23/19 0536 08/23/19 0725 NA 132* -- 135* -- -- 137 -- K 4.6 -- 5.4* -- -- 4.7 -- CL 102 -- 104 -- -- 106 -- BICARB 23 -- 19* -- -- 25 -- BUN 129* -- 150* -- -- 99* -- CR 2.40* -- 2.58* -- -- 2.03* -- GLU 223* < > 103* < > 211* 149* 122* CA 8.7 -- 8.5* -- -- 8.1* -- MG 2.5 -- 2.4 -- -- 2.2 -- PO4 5.0* -- 6.8* -- -- 4.9* -- < > = values in this interval not displayed. Liver Tests: Last 72 hours (or 3 results) Recent Labs 08/21/19 0658 08/22/19 0539 08/23/19 0536 AST 15 13 11 ALT 82* 59 44 TBILI 1.6* 1.3* 1.1 AP 44* 32* 29* ALB 4.5 3.9 3.6 TP 6.9 5.7* 5.4* Imaging: No results found for: CXR Assessment: Doug Lawson is a 54 y.o. 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 Endocrinology has been consulted for glycemic management in t he setting of coricosteroid and tube-feed related hyperglycemia. He has been requiring less insulin since d/c of tube feeds on 08/21 and with switch to prednisone. His BG was low yester day morning, so his total basal insulin was decreased from 40 to 25 units and he was switche d to BID NPH with more in the AM to better match the effect of his oral prednisone. Mr. Lawson was able to address low BG yesterday through use of glucose tablets and meals, wi th BG in the low 100s throughout yesterday afternoon. His BG was up to 211 yesterday evening at 11:10pm. He received 2 units of correction in addition to 8u of NPH last night, and by t his morning at 7:25am his BG was 122. This was a fairly large overnight change in blood gluc ose, so I recommend decreasing his pm NPH insulin to 6 units. I suspect he may also be exper iencing less insulin resistance in the evenings, potentially related to decreased effect of his prednisone at that time. Because of this, I recommend discontinuing bedtime correction i nsulin. Will continue to follow his CBG and insulin needs throughout the day. His daily prednisone dose is being gradually tapered, with 30 mg given today and 20mg planned for tomorrow. I exp ect that he will require less insulin as his steroid dose decreases. Recommendations: (ordered) Change NPH to 17 units qam, 6 units qpm Discontinued bedtime correction insulin, but continue moderate correction scale insulin with meals Thank you for this consult. The endocrine consult team will continue to follow. [facility] Medical Student [facility] The above was edited to reflect my assessment and plan. Kenneth Dotson MD Endocrinology Fellow Pager: [phone] 08/23/2019 12:17 PM I have staffed the patient with consult attending Dr. Shukla who agrees with the assessment a nd recommendations as detailed above. Pramod Echavarria MD - 08/22/2019 2:43 PM PDT Inpatient Nephrology Consult Note Identification: Patient name: Doug Lawson : 1965 Date of service: 08/22/2019 Impression and Recommendations: Doug Lawson is a 54 y.o. male with EtOH cirrhosis s/p OLTx on 08/16. He had a prol onged inpatient course prior to transplant; was deconditioned and malnourished. Now doing mu ch improved with appropriate graft function. Was seen previously seen by nephrology for CKD management. Nephrology consulted today due to increased Bun and Scr, with hyperkalemia in the setting o f recovering surgery, Tacrolimus, bacrim Non oligouric Acute kidney injury, on CKD III - cause for KAR multifactorial, vasoconstriction from tacrolimus, bactrim, recent surgery - with climbing BUN and scr, would expect there to be worsening in K overtime. Patient also volume overload on exam - Favor starting HD today. Will ask primary team to place temporary HD catheter and will in itiate slow HD today to avoid dialysis disequilibrium syndrome --> HD today, will evaluate labs tomorrow, may need another session --> PVR at bedside was <50, low suspicion for obstruction. Hyperkalemia - likely related to diet (non renal), tac, kar, bactrim --> Address with HD --> change diet to renal diet. Fluid overload - will address with HD, may need PUF tomorrow to help Anemia unspecified - due to recent surgery, CKD Patient was seen and staffed with my supervising attending Dr. Jarrett, who agrees with the a ssessment and plan unless otherwise noted. Pramod Black MD Pager # [phone] History of present illness: Reason for consult: KAR Requesting provider: Marsha Garcia MD Doug Lawson is a 54 y.o. male with EtOH cirrhosis s/p OLTx on 08/16. He had a prol onged inpatient course prior to transplant; was deconditioned and malnourished. Now doing mu ch improved with appropriate graft function. Was seen previously seen by nephrology for CKD management. Nephrology consulted today due to increased Bun and Scr, with hyperkalemia in the setting o f recovering surgery, Tacrolimus, bacrim Review of systems: Constitutional: negative ENT: negative Cardiovascular: negative Respiratory: negative Gastrointestinal: negative Genitourinary: negative Musculoskeletal: negative Integumentary: positive for lower leg edema Neurologic: negative Psychologic: negative Hematologic: negative Physical exam: Last 24 hour min/max Temp: 36.7 C (98.1 F) Temp Min: 36.5 C (97.7 F) Max: 37 C (98.6 F) Pulse: 85 Pulse Min: 80 Max: 85 Resp: 16 Resp Min: 16 Max: 18 BP: 120/64 BP Min: 120/64 Max: 148/79 SpO2: 99 % SpO2 Min: 99 % Max: 100 % Body mass index is 31.95 kg/m. Intake/Output Summary (Last 24 hours) at 08/22/2019 1444 Last data filed at 08/22/2019 1330 Gross per 24 hour Intake 1395 ml Output 1025 ml Net 370 ml Constitutional: NAD, ENT: normal conjunctivae and anicteric sclerae. Cardiovascular: Rhythm regular. Normal S1 and S2. No murmurs, rubs or gallops. Respiratory: clear to auscultation and percussion. Abdomen: Soft, nontender and nondistended with positive bowel sounds. Healing incision Musculoskeletal: Warm and well perfused. No cyanosis. 3+ edema. Neurologic: alert and oriented. No tremor or asterixis. Skin: Normal Psychiatric: Appropriate mood and affect. Past medical history: All medical, surgical, family, and social histories were personally reviewed. Past Medical History: Diagnosis Date Cirrhosis (HCC) CKD (chronic kidney disease) Past surgical history: Past Surgical History: Procedure Laterality Date LEG SURGERY Social history: Social History Socioeconomic History Marital status: Single [...] Smokeless tobacco: Former User Types: Chew Substance and Sexual Activity Alcohol use: No Frequency: Never Drug use: No Sexual activity: Not on file Lifestyle Physical activity: Days per week: Not on file Minutes per session: Not on file Stress: Not on file Relationships Social connections: Talks on phone: Not on file Gets together: Not on file Attends mormon service: Not on file Active member of club or organization: Not on file Attends meetings of clubs or organizations: Not on file Relationship status: Not on file Other Topics Concern Not on file Social History Narrative Not on file Family history: Family History Problem Relation Liver cancer Neg Hx Allergies: Allergies Allergen Reactions Doxycycline Hives and Rash Medications: Prior to Admission Medications Prescriptions deferiprone 500 mg oral tablet Sig: Take 4 tablets (2,000mg) by mouth three times daily. furosemide 20 mg oral tablet Sig: Take 2 tablets by mouth two times daily. lactulose 10 gram/15 mL oral solution Sig: Take 15 mL by mouth two times daily. metoprolol succinate 50 mg oral tablet extended release 24 hr Sig: Take 0.5 tablets by mouth once daily. spironolactone 100 mg oral tablet Sig: Take 1 tablet by mouth once daily. Facility-Administered Medications: None Medications Scheduled Medication Dose/Rate, Route, Frequency Last Action albumin human (BUMINATE, FLEXBUMIN) 25 % injection 25 g 0 g, 0 mL/hr, IV, Q8H Stopped: 110 amiodarone (CORDARONE) tablet 200 mg 200 mg, oral, DAILY Given: 08/22 08 aspirin tablet 325 mg 325 mg, oral, DAILY Given: 08/22 944 dextrose 50 % in water injection No Dose/Rate Ordered fluconazole (DIFLUCAN) tablet 400 mg 400 mg, oral, Q MON Given: 08/17 832 guar gum (BENEFIBER) oral powder 1 packet 1 packet, oral, DAILY Given: 08/22 1130 insulin lispro (HUMALOG) injection 1-16 Units 3 Units, subQ, QID Given: 08/21 2149 insulin NPH (HUMULIN N) injection 17 Units 17 Units, subQ, QAM Ordered insulin NPH (HUMULIN N) injection 8 Units 8 Units, subQ, HS Ordered lidocaine (LIDODERM) 5 % patch 1 patch 1 patch, TD, Q24H Applied Patch: 08/19 184 lidocaine (LIDODERM) 5 % patch 1 patch 1 patch, TD, Q24H Applied Patch: 08/19 1843 lidocaine (XYLOCAINE) 10 mg/mL (1 %) injection No Dose/Rate Ordered metoprolol tartrate (LOPRESSOR) tablet 6.25 mg 6.25 mg, oral, BID Given: 08/22 814 mycophenolate (CELLCEPT) capsule 1,000 mg 1,000 mg, oral, BID (MMF) Given: 08/22 945 omeprazole (PRILOSEC) capsule 20 mg 20 mg, oral, BEFORE BREAKFAST Given: 08/22 534 polyethylene glycol (MIRALAX) packet 17 g 17 g, oral, DAILY Given: 08/20 835 predniSONE (DELTASONE) tablet 20 mg 20 mg, oral, DAILY Ordered predniSONE (DELTASONE) tablet 30 mg 30 mg, oral, DAILY Ordered probiotic kefir (MAGEN'S KEFIR) No Dose/Rate, oral, BID Given - Food: 08/21 2238 QUEtiapine (SEROQUEL) tablet 25 mg 25 mg, oral, HS Given: 08/21 2151 senna-docusate (SENOKOT S) 8.6-50 mg 1 tablet 1 tablet, oral, BID Given: 08/21 2151 tacrolimus capsule 4 mg 4 mg, oral, BID () Ordered tamsulosin (FLOMAX) capsule 0.4 mg 0.4 mg, oral, DAILY Given: 08/22 814 trimethoprim-sulfamethoxazole (BACTRIM, SEPTRA) 80-400 mg 1 tablet 1 tablet, oral, Q Given: 08/21 904 valGANciclovir (VALCYTE) tablet 450 mg 450 mg, oral, DAILY Given: 08/22 0945 PRN Medication Dose/Rate, Route, Frequency Last Action acetaminophen (TYLENOL) tablet 500 mg 500 mg, oral, Q6H PRN Given: 08/21 1224 albumin human (BUMINATE, FLEXBUMIN) 5 % injection 25 g 25 g, IV, DAILY PRN Ordered bisacodyl (DULCOLAX) suppository 10 mg 10 mg, rect, DAILY PRN Ordered dextrose 50 % in water IV 25 mL 25 mL, IV, PRN Ordered glucagon (GLUCAGEN) injection 1 mg 1 mg, IM, PRN Ordered glucose chewable tablet 16 g 16 g, oral, PRN Given: 08/22 1009 heparin 1,000 unit/mL injection 1-3 mL 1-3 mL, IK, 4B DIALYSIS PRN Ordered oxyCODONE (immediate release) (ROXICODONE) tablet 2.5-5 mg 2.5-5 mg, oral, Q4H PRN Ordered polyethylene glycol (MIRALAX) packet 34 g 34 g, oral, TID PRN Ordered QUEtiapine (SEROQUEL) tablet 25 mg 25 mg, oral, HS PRN Given: 08/18 2114 sodium chloride 0.9 % (NS) IV infusion 100-200 mL, IV, 4B DIALYSIS PRN Ordered Laboratory and imaging studies: All blood, urine, radiographic, and other diagnostic test results noted below were personal ly reviewed. Recent Labs 08/20/19 0609 08/21/19 0658 08/22/19 0539 WBC 5.97 10. 6.54 HB 9.6* 11.0* 9.8* HCT 29.5* 34.2* 29.3* PLT 38* 68* 53* NEUTROPERC 82.1* 79.2* 79.5* LYMPHPERC 9.5* 10.2* 11.6* MONOPERC 6.9 7.6 6.1 BASOPERC 0.2 0.2 0.2 EOSPERC 0.5* 1.5 1.2 Recent Labs 08/20/19 0609 08/21/19 0658 08/22/19 0539 NA 137 132* 135* K 4.8 4.6 5.4* CL 108 102 104 BICARB 21 23 19* BUN 107* 129* 150* CR 2.41* 2.40* 2.58* Recent Labs 08/20/19 0609 08/21/19 0658 08/22/19 0539 CA 8.5* 8.7 8.5* ALB 3.8 4.5 3.9 MG 2.7* 2.5 2.4 PO4 5.4* 5.0* 6.8* No results found for: PTH Lab Results Component Value Date [id number] 19.9 04/21/2019 Lab Results Component Value Date IRON 346 (H) 08/15/2019 IRONBINDCAP 423 08/15/2019 SATTRANSFERR 82 (H) 08/15/2019 FERRITIN 3,007 (H) 08/15/2019 Lab Results Component Value Date URINECOLOR Yudy 08/15/2019 URAPPEARANCE Clear 08/15/2019 URINEPROTEIN Negative 05/20/2019 URINEPH 5.5 05/20/2019 URSPECGRAV 1.010 05/20/2019 URINEGLUCOSE Negative 05/20/2019 Lab Results Component Value Date URINEAMPPHOS None 08/15/2019 URINEBACTERI None 08/15/2019 URINECAOX None 08/15/2019 URINECAST 0 08/15/2019 URINEGRANCAS 0 08/15/2019 URINEHYALINE 0 08/15/2019 URINEMUCOUS None 08/15/2019 URINEEPITH Few 08/15/2019 URINEREDCELL 1 08/15/2019 URINESQEPI None 08/15/2019 URINEPO4 None 08/15/2019 URINEWBC <1 08/15/2019 URINEYEAST None 08/15/2019 Renal ultrasound: No results found. Associated attestation - Mitch Jarrett MD - 08/22/2019 4:29 PM PDTI personally interviewe d the patient and performed the tamez elements of the physical examination. I formulated the a ssessment and plan with the resident. I agree with Dr Black's documentation. Dx: Non oliguric Kar/CKD baseline GFR before Liver TX ~ 40 ml.min KAR post op in setting of tacrolimus exposure Hyperkalemia in setting of tacrolimus, bactrim and low GFR Marked azotemia with progressive elevation of BUN ( 150 mg/dl this AM) Hyponatremia Hypervolemia Worsening metabolic acidosis Plan: Start Dialysis support (short HD today to prevent disequilibrium). UF ~ 500 ml , no h eparin, 2 K bath) Anticipate HD tomorrow Kenneth Dotson MD - 08/22/2019 9:50 AM PDT Endocrinology Consult Service Progress Note Hospital Day:36 Interval events: Tube feeds discontinued and NG tube removed NPH discontinued Low glucose this AM, with juice, glucose tab intervention. BG remains low in the 60s. Subjective: Says he is feeling well today but a little shaky. Denies n/v. Good appetite. Eating a low c arb meal with eggs, sausage. Inpatient Medications acetaminophen (TYLENOL) tablet 500 mg, 500 mg, oral, Q6H PRN albumin human (BUMINATE, FLEXBUMIN) 25 % injection 25 g, 25 g, intravenous, Q8H albumin human (BUMINATE, FLEXBUMIN) 5 % injection 25 g, 25 g, intravenous, DAILY PRN amiodarone (CORDARONE) tablet 200 mg, 200 mg, oral, DAILY aspirin tablet 325 mg, 325 mg, oral, DAILY bisacodyl (DULCOLAX) suppository 10 mg, 10 mg, rectal, DAILY PRN dextrose 50 % in water IV 25 mL, 25 mL, intravenous, PRN [COMPLETED] fluconazole IV 400 mg IN NaCl (RTU), 400 mg, intravenous, ONCE FOLLOWED BY fluconazole (DIFLUCAN) tablet 400 mg, 400 mg, oral, Once per day on Mon glucagon (GLUCAGEN) injection 1 mg, 1 mg, intramuscular, PRN glucose chewable tablet 16 g, 16 g, oral, PRN guar gum (BENEFIBER) oral powder 1 packet, 1 packet, oral, DAILY insulin glargine (LANTUS) injection 40 Units, 40 Units, subcutaneous, HS insulin lispro (HUMALOG) injection 1-16 Units, 1-16 Units, subcutaneous, QID lidocaine (LIDODERM) 5 % patch 1 patch, 1 patch, transdermal, Q24H lidocaine (LIDODERM) 5 % patch 1 patch, 1 patch, transdermal, Q24H metoprolol tartrate (LOPRESSOR) tablet 6.25 mg, 6.25 mg, oral, BID mycophenolate (CELLCEPT) capsule 1,000 mg, 1,000 mg, oral, BID (MMF) omeprazole (PRILOSEC) capsule 20 mg, 20 mg, oral, BEFORE BREAKFAST oxyCODONE (immediate release) (ROXICODONE) tablet 2.5-5 mg, 2.5-5 mg, oral, Q4H PRN polyethylene glycol (MIRALAX) packet 17 g, 17 g, oral, DAILY polyethylene glycol (MIRALAX) packet 34 g, 34 g, oral, TID PRN [COMPLETED] predniSONE (DELTASONE) tablet 60 mg, 60 mg, oral, DAILY FOLLOWED BY [COMPLE JEANNETTE] predniSONE (DELTASONE) tablet 40 mg, 40 mg, oral, DAILY FOLLOWED BY [START ON 2018] predniSONE (DELTASONE) tablet 30 mg, 30 mg, oral, DAILY FOLLOWED BY [START ON 08/24] predniSONE (DELTASONE) tablet 20 mg, 20 mg, oral, DAILY probiotic kefir (MAGEN'S KEFIR), , oral, BID QUEtiapine (SEROQUEL) tablet 25 mg, 25 mg, oral, HS QUEtiapine (SEROQUEL) tablet 25 mg, 25 mg, oral, HS PRN senna-docusate (SENOKOT S) 8.6-50 mg 1 tablet, 1 tablet, oral, BID tacrolimus capsule 5 mg, 5 mg, oral, BID ( and ) tamsulosin (FLOMAX) capsule 0.4 mg, 0.4 mg, oral, DAILY trimethoprim-sulfamethoxazole (BACTRIM, SEPTRA) 80-400 mg 1 tablet, 1 tablet, oral, Once day on Sat valGANciclovir (VALCYTE) tablet 450 mg, 450 mg, oral, DAILY Objective: Last Vitals: BP 141/75 | Pulse 84 | Temp 37 C (98.6 F) | Resp 18 | Ht 1.803 m (5' 1 1") | Wt 103.9 kg (229 lb 0.9 oz) | SpO2 100% | BMI 31.95 kg/m | BSA 2.28 m Current FIO2 (%): 21 fraction of O2 (08/16/19 1329) O2 Delivery Device: None (room air) (08/22/19 0800) Last Vitals: BP 141/75 | Pulse 84 | Temp 37 C (98.6 F) | Resp 18 | Ht 1.803 m (5' 1 1") | Wt 103.9 kg (229 lb 0.9 oz) | SpO2 100% | BMI 31.95 kg/m | BSA 2.28 m 24 Hour Vital Min/Max: Systolic (24hrs), Av , Min:109 , Max:148 Diastolic (24hrs), Av, Min:66, Max:95 Pulse Min: 74 Max: 85 Temp Min: 36.5 C (97.7 F) Max: 37 C (98.6 F) Resp Min: 16 Max: 18 SpO2 Min: 100 % Max: 100 % Intake/Output Summary (Last 24 hours) at 08/22/2019 0950 Last data filed at 08/22/2019 0937 Gross per 24 hour Intake 1503 ml Output 950 ml Net 553 ml Physical Exam: General Appearance: Well developed, Well nourished, No apparent distress pleasant conversa nt HEENT: EOMI, oral mucosa moist, no exophthalmos, no chemosis, sclera anicteric Neck:supple, no thyromegaly, no asymmetry Cardiovascular: regular rate and rhythm, 3/6 holosystolic murmur best heard at left upper s ternal border, normal S1 & S2 Respiratory: Normal effort, in no respiratory distress, clear to auscultation bilaterally, no wheezes, crackles or rhonchi. Abdominal: abdominal binder in place, nontender. Normoactive bowel sounds Extremities: warm and well-perfused. 2+ pitting bilateral lower extremity edema. Skin: no jaundice, no rashes or bruising. Neurologic: Moving all extremities, no gross focal deficits, tremors noted Psychiatric: affect, mood and behavior normal Labs: CBC with diff last 72 hours (or 3 results) Recent Labs 08/20/19 0609 08/21/19 0658 08/22/19 0539 WBC 5.97 10.19 6.54 HB 9.6* 11.0* 9.8* HCT 29.5* 34.2* 29.3* PLT 38* 68* 53* NEUTROPERC 82.1* 79.2* 79.5* LYMPHPERC 9.5* 10.2* 11.6* MONOPERC 6.9 7.6 6.1 BASOPERC 0.2 0.2 0.2 EOSPERC 0.5* 1.5 1.2 Chemistries: Last 72 Hours (or 3 results): Recent Labs 08/20/19 0609 08/21/1958 08/22/19 0539 08/22/19 0918 08/22/19 0937 NA 137 -- 132* -- 135* -- -- K 4.8 -- 4.6 -- 5.4* -- -- CL 108 -- 102 -- 104 -- -- BICARB 21 -- 23 -- 19* -- -- BUN 107* -- 129* -- 150* -- -- CR 2.41* -- 2.40* -- 2.58* -- -- GLU 160* < > 223* < > 103* 57* 54* CA 8.5* -- 8.7 -- 8.5* -- -- MG 2.7* -- 2.5 -- 2.4 -- -- PO4 5.4* -- 5.0* -- 6.8* -- -- < > = values in this interval not displayed. Liver Tests: Last 72 hours (or 3 results) Recent Labs 08/20/19 0609 08/21/1958 08/22/19 0539 AST 18 15 13 ALT 101* 82* 59 TBILI 1.5* 1.6* 1.3* AP 39* 44* 32* ALB 3.8 4.5 3.9 TP 6.1* 6.9 5.7* Imaging: No results found for: CXR Assessment: Doug Lawson is a 54 y.o. 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 Endocrinology has been consulted for glycemic management in th e setting of coricosteroid and tube-feed related hyperglycemia. His tube feeds were disconti nued yesterday and he has begun eating normal meals. This morning, he had low BG in the 50s, and needed juice for BG correction. His last NPH do se was 26 units yesterday at 2pm, and his BG was 200 yesterday at 9pm when he received 40 un its of glargine basal insulin. Given his low BG this AM, I suspect that the 40 units of glar gine is now too high as a result of his switch to oral prednisone. He received 60 mg of pred nisone yesterday on 08/21, will receive 40 mg prednisone today, and will decrease to 30 mg of prednisone tomorrow. In order to better match his insulin with the shorter duration of action of prednisone comp ared to methylprednisolone, we recommend switching to NPH twice daily as a basal insulin. Re commend giving 7 units of NPH this pm, and 18 units of NPH tomorrow morning. Given this redu ction in insulin requirements we can also plan on reducing his correction scale. For his current lows from the glargine, recommend start D10 drip at 75 mL/hr for the rest o f the day. Plan to discontinue D10 drip at 9pm or if he becomes hyperglycemic Recommendations: Discontinue glargine insulin Start D10 drip at 75 mL/hr until this evening when he receives his NPH or if he becomes hyperglycemic Start NPH 7 units QHS tonight, 18 units QAM. Change to moderate correction scale Thank you for this consult. The endocrine consult team will continue to follow. [place] [facility] Medical Student [facility] The above was edited to reflect my assessment and plan. Kenneth Dotson MD Endocrinology Fellow Pager: [phone] 08/22/2019 12:08 PM I have staffed the patient with consult attending Dr. Shukla who agrees with the assessment a nd recommendations as detailed above. Chasidy Welch MD - 08/21/2019 9:56 AM PDT Endocrinology Follow Up Consult Note Reason for consult: steroid-induced hyperglycemia Consult Attending: Dr. Will Rosario Primary Batch Blender: none Requesting Attending: Marsha Garcia MD Assessment: Doug Lawson is a 54 y.o. 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 Endocrinology has been consulted for glycemic management in th e setting of coricosteroid and tube-feed related hyperglycemia. Prior to this hospitalization, the patient did not carry a diagnosis of diabetes, nor been on any hypoglycemic agents, but developed significant hyperglycemia early in his hospital co urse (BG 300s-400s 08/02-08/05), found with HbA1c 8.1% (07/17), with development of diabetes suspected secondary to hemochromatosis. He was started on Methylprednisolone 500mg at the time of his transplant 08/16, 250mg 08/17 , continued on 125mg 08/18, 100mg 08/19, 80mg 08/20, with plan for slow taper. He had been receiving overnight tube feeds prior to his surgery and started daytime tube-feeds 08/18. On ce up to goal 75 ml / hr, we started basal glargine at 40 units, and NPH 13 units q8h. Reviewing insulin requirements over the past 24h, we uptitrated NPH from 13 > 26 units q8h, and he required an additional 27 units corrective Lispro for CBGs 360s, after significant c arbohydrate load. After his scheduled NPH and these corrective doses, morning CBGs remained above goal at 201, suggesting that he could tolerate, and probably needs, an increase in hi s basal insulin. However, switching to a different Tube Feed formulation/rate tonight. This will provide f or 177g carbs over 12 hours. Based on the last 24h data, with 218g carbs / 24h and 78 units NPH, estimate insulin sensitivity at 1 unit insulin : 3 grams carbohydrates. Fibrosure's 1 77g carbs / 3 grams carb / unit insulin = 59 units insulin to cover tube feeds overnight. We recommend splitting this into two doses of NPH. The first dose should be given 1 hour prio r to tube feeds and then 2-3 hours after starting tube feeds. Additionally, since he is now eating regular meals, favor scheduling mealtime lispro, as erlin shannon. *Update from Primary Team: Calorie count felt to be adequate, so decided to pull NG tube this afternoon. Will not be r eceiving overnight tube feeds as previously planned. After his tube feeds were discontinued, he received 14.00 dose of NPH, which was for tube f eed coverage. To prevent hypoglycemia, goal would be to match po carbohydrate intake with w hat he would have received with tube feeds, for the duration of that NPH dose action (~12 h from 14.00 > midnight). Recommend ongoing encouragement of po intake, especially this after noon, with close monitoring of CBGs, as detailed below. Recommendations: - To minimize risk of hypoglycemia following 14.00 dose NPH * Aim to deliver as many carbs as he would have received with ongoing tube feeds * This is approximately an additional 9g carbs / hour, in addition to regular meals * Duration of NPH action ~12 hours from 14.00 = midnight * Check q2 CBGs for the duration of NPH action - Discontinue NPH - Continue Glargine 40 units nightly - Tomorrow, add mealtime lispro 6 units per regular meal - Continue aggressive corrective sliding scale Thank you for this consult. The endocrine consult team will continue to follow while admit jeannette. Chasidy Navarrete MD Internal Medicine PGY-3 Pager: [phone] This patient's assessment and plan was discussed with consult attending Dr. Will Rosario who agrees with above assessment and recommendations. Interval Events: Transitioned off insulin ggt 08/20 noon Continuing Glargine 40 units QHS Increased NPH 13 > 26 units Q8H Required Lispro 16, 5, 6 units = 27 units additional CBGs increased 08/20 PM 367, Donell admitted to having a few afternoon "milkshakes" CBG 201 this morning Continuing on steroid taper: Methylprednisolone 500mg 08/16 with transplant, 250mg 08/17, 125mg 08/18, 100mg 08/19, 80mg 08/20, Prednisone 60mg 08/21 Continuing: Tube feeds, from 75 > 70 cc/hr Diabetic diet with calorie count *per primary team, tentative plan to transition to 12h overnight TF, pending calorie counts today Ambulating with PT, working with OT Overnight, was able to sleep, feels quetiapine has been helpful. Today, feels well, with mild abdominal pain where tube was removed yesterday. No nausea, to lerating meals well. No emesis. No chest pain or shortness of breath. Oriented to person, place, and time, also to situation. Denies lightheadedness, dizziness. Inpatient Medications acetaminophen (TYLENOL) tablet 500 mg, 500 mg, oral, Q6H PRN albumin human (BUMINATE, FLEXBUMIN) 25 % injection 25 g, 25 g, intravenous, Q8H albumin human (BUMINATE, FLEXBUMIN) 5 % injection 25 g, 25 g, intravenous, DAILY PRN amiodarone (CORDARONE) tablet 200 mg, 200 mg, oral, DAILY aspirin tablet 325 mg, 325 mg, oral, DAILY bisacodyl (DULCOLAX) suppository 10 mg, 10 mg, rectal, DAILY PRN dextrose 50 % in water IV 25 mL, 25 mL, intravenous, PRN [COMPLETED] fluconazole IV 400 mg IN NaCl (RTU), 400 mg, intravenous, ONCE FOLLOWED BY fluconazole (DIFLUCAN) tablet 400 mg, 400 mg, oral, Once per day on Sat glucagon (GLUCAGEN) injection 1 mg, 1 mg, intramuscular, PRN glucose chewable tablet 16 g, 16 g, oral, PRN guar gum (BENEFIBER) oral powder 1 packet, 1 packet, oral, DAILY insulin glargine (LANTUS) injection 40 Units, 40 Units, subcutaneous, HS insulin lispro (HUMALOG) injection 1-16 Units, 1-16 Units, subcutaneous, QID insulin NPH (HUMULIN N) injection 26 Units, 26 Units, subcutaneous, Q8H lidocaine (LIDODERM) 5 % patch 1 patch, 1 patch, transdermal, Q24H lidocaine (LIDODERM) 5 % patch 1 patch, 1 patch, transdermal, Q24H metoprolol tartrate (LOPRESSOR) tablet 6.25 mg, 6.25 mg, oral, BID mycophenolate (CELLCEPT) capsule 1,000 mg, 1,000 mg, oral, BID (MMF) omeprazole (PRILOSEC) capsule 20 mg, 20 mg, oral, BEFORE BREAKFAST oxyCODONE (immediate release) (ROXICODONE) tablet 2.5-5 mg, 2.5-5 mg, oral, Q4H PRN polyethylene glycol (MIRALAX) packet 17 g, 17 g, oral, DAILY polyethylene glycol (MIRALAX) packet 34 g, 34 g, oral, TID PRN [COMPLETED] predniSONE (DELTASONE) tablet 60 mg, 60 mg, oral, DAILY FOLLOWED BY [START ON 08/22/2019] predniSONE (DELTASONE) tablet 40 mg, 40 mg, oral, DAILY FOLLOWED BY [START ON 08/23/2019] predniSONE (DELTASONE) tablet 30 mg, 30 mg, oral, DAILY FOLLOWED BY [STAR T ON 08/24/2019] predniSONE (DELTASONE) tablet 20 mg, 20 mg, oral, DAILY probiotic kefir (MAGEN'S KEFIR), , oral, BID QUEtiapine (SEROQUEL) tablet 25 mg, 25 mg, oral, HS QUEtiapine (SEROQUEL) tablet 25 mg, 25 mg, oral, HS PRN senna-docusate (SENOKOT S) 8.6-50 mg 1 tablet, 1 tablet, oral, BID tacrolimus capsule 5 mg, 5 mg, oral, BID ( and ) tamsulosin (FLOMAX) capsule 0.4 mg, 0.4 mg, oral, DAILY trimethoprim-sulfamethoxazole (BACTRIM, SEPTRA) 80-400 mg 1 tablet, 1 tablet, oral, Once pe day on Sat valGANciclovir (VALCYTE) tablet 450 mg, 450 mg, oral, DAILY Allergies Allergen Reactions Doxycycline Hives and Rash O: Last Vitals: BP 143/72 (BP Location: Right upper arm, Patient Position: Sitting) | Pul se 88 | Temp 36.4 C (97.5 F) (Oral) | Resp 18 | Ht 1.803 m (5' 11") | Wt 103.9 kg (2 29 lb 0.9 oz) | SpO2 100% | BMI 31.95 kg/m | BSA 2.28 m 24 Hour Vital Min/Max: Systolic (24hrs), Av , Min:135 , Max:153 Diastolic (24hrs), Av, Min:72, Max:86 Pulse Min: 72 Max: 88 Temp Min: 36.3 C (97.3 F) Max: 36.6 C (97.9 F) Resp Min: 18 Max: 18 SpO2 Min: 99 % Max: 100 % Intake/Output Summary (Last 24 hours) at 08/21/2019 0956 Last data filed at 08/21/2019 0748 Gross per 24 hour Intake 6907 ml Output 2300 ml Net 4607 ml Physical Exam: General Appearance: Well developed, Well nourished, No apparent distress pleasant conversa nt. Sitting up at the edge of the bed HEENT: Sclera minimally icteric. Moist mucous membranes Cardiovascular: regular rate and rhythm, IV/ early blowing systolic murmur heard best upp er sternal borders Respiratory: Breathing comfortably on room air. Posterior rales midway up lung gr, slig htly decreased lung sounds right compared to left. Abdominal: abdominal binder in place, nontender, decreased BS Extremities: peripheral pulses intact, bilateral lower extremity edema, 2+ pitting over fee t Skin: minimal jaundice, no rashes on exposed skin Neurologic: Face symmetric, pupils equally round. Able to move all 4 extremities spontaneou sly against gravity, alert and oriented x 3, no focal deficits grossly, mild tremor on hand extension Psychiatric: bright affect, mood and behavior appropriate Labs: Lab Results Component Value Date A1C 8.1 07/17/2019 A1C <3.5 04/21/2019 No results for input(s): CHOL, LDL, HDL, TRI in the last 8640 hours. Recent Labs 08/19/1962308/20/1960808/21/19 0658 AST 23 18 15 ALT 122* 101* 82* TBILI 1.5* 1.5* 1.6* AP 33* 39* 44* ALB 3.5 3.8 4.5 TP 5.4* 6.1* 6.9 Recent Labs 08/19/19 0608/20/19 0609 08/20/19 2214 08/21/19 0658 08/21/19 0737 GLU 140* < > 160* < > 274* 223* 201* BUN 97* -- 107* -- -- 129* -- CR 2.17* -- 2.41* -- -- 2.40* -- ALB 3.5 -- 3.8 -- -- 4.5 -- CA 8.2* -- 8.5* -- -- 8.7 -- NA 140 -- 137 -- -- 132* -- K 4.8 -- 4.8 -- -- 4.6 -- CL 108 -- 108 -- -- 102 -- BICARB 22 -- 21 -- -- 23 -- < > = values in this interval not displayed. Lab Results Component Value Date TSH 0.47 07/18/2019 TSH 1.33 04/21/2019 [ Reviewed ] Marilee Welch MD - 08/20/2019 10:27 AM PDTFormatting of this note might be different from the orig inal. Endocrinology Follow Up Consult Note Reason for consult: steroid-induced hyperglycemia Consult Attending: Dr. Will Rosario Primary Batch Blender: none Requesting Attending: Marsha Garcia MD Assessment: Doug Lawson is a 54 y.o. 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 Endocrinology has been consulted for glycemic management in e setting of coricosteroid and tube-feed related hyperglycemia. Prior to this hospitalization, the patient did not carry a diagnosis of diabetes, nor been on any hypoglycemic agents, but developed significant hyperglycemia early in his hospital co urse (BG 300s-400s 08/02-08/05), found with HbA1c 8.1% (07/17), with development of diabetes suspected secondary to hemochromatosis. He was started on Methylprednisolone 500mg at the time of his transplant 08/16, 250mg 08/17 , continued on 125mg 08/18, 100mg 08/19, 80mg 08/20, with plan for slow taper. He had been receiving overnight tube feeds prior to his surgery and started daytime tube-feeds 08/18. On ce up to goal 75 ml / hr, we started basal glargine at 40 units, and NPH 13 units q8h. Reviewing insulin requirements over the past 24h, prior to initiating Glargine/NPH, was req uiring approximately 8.5 units regular insulin IV/hour. Calculated total insulin requirement from 18.00 08/19 to 6.00 08/20, which averaged to 8.7 units insulin / hour. This rate x 24h x 0.8 (20% dose reduction) - 40 units Glargine, comes to 135 units insulin for remaining total daily requirements. Divided by 3 for q8h NPH, this would be 45 units PAPER COATER H. Conservatively, we favor starting at 26 units, which is twice his current 13 unit dosing, adding a corrective scale, and adjusting from there. Recommendations: - Stop insulin infusion - Increase NPH from 13 > 26 units Q8H - Continue Glargine 40 units nightly - Add aggressive corrective sliding scale Thank you for this consult. The endocrine consult team will continue to follow while admit jeannette. Chasidy Navarrete MD Internal Medicine PGY-3 Pager: [phone] This patient's assessment and plan was discussed with consult attending Dr. Will Rosario who agrees with above assessment and recommendations. Interval Events: Tube feeds uptitrated to goal 75 ml/hr Tolerating diet, taking full meals Per our recommendations: Received Glargine 40 units last night, NPH 13 units q8h Continued on insulin drip - required 4-6 units per hour CBGs up to 213 yesterday evening, down to 126 this morning, last 154 Continuing on Methylprednisolone taper: 500mg 08/16 with transplant, 250mg 08/17, 125mg 08/18, 100mg 08/19, 80mg 08/20 Subjective: Feeling well today, working with OT at the time of our interview. Has been walking around the floor this morning, without dizziness/lighteheadedness, palpita tions, sweating. No chest or abdominal pain. Describes a sensation of feeling 'panic' when he thinks about h is abdomen, his surgery, what his body has been through, which makes him feel momentarily br eathless. He then tells himself that he's 'okay' and this calms him and the feeling dissipat es. Inpatient Medications acetaminophen (TYLENOL) tablet 500 mg, 500 mg, oral, Q6H PRN albumin human (BUMINATE, FLEXBUMIN) 25 % injection 25 g, 25 g, intravenous, Q8H albumin human (BUMINATE, FLEXBUMIN) 5 % injection 25 g, 25 g, intravenous, DAILY PRN amiodarone (CORDARONE) tablet 200 mg, 200 mg, oral, DAILY aspirin tablet 325 mg, 325 mg, oral, DAILY bisacodyl (DULCOLAX) suppository 10 mg, 10 mg, rectal, DAILY PRN dextrose 5%-NaCl 0.45% IV infusion, 5-400 mL, intravenous, PRN dextrose 50 % in water IV 15-150 mL, 15-150 mL, intravenous, PRN [COMPLETED] fluconazole IV 400 mg IN NaCl (RTU), 400 mg, intravenous, ONCE FOLLOWED BY fluconazole (DIFLUCAN) tablet 400 mg, 400 mg, oral, Once per day on Mon insulin glargine (LANTUS) injection 40 Units, 40 Units, subcutaneous, HS insulin NPH (HUMULIN N) injection 13 Units, 13 Units, subcutaneous, Q8H insulin regular bolus from continuous infusion 1-50 Units, 1-50 Units, intravenous, NEED ED (BOLUS) insulin regular in NaCl 0.9% IV infusion (1 unit/mL), 0.1-50 Units/hr, intravenous, CONTINU OUS lidocaine (LIDODERM) 5 % patch 1 patch, 1 patch, transdermal, Q24H lidocaine (LIDODERM) 5 % patch 1 patch, 1 patch, transdermal, Q24H metoprolol tartrate (LOPRESSOR) tablet 6.25 mg, 6.25 mg, oral, BID mycophenolate (CELLCEPT) capsule 1,000 mg, 1,000 mg, oral, BID (MMF) omeprazole (PRILOSEC) capsule 20 mg, 20 mg, oral, BEFORE BREAKFAST oxyCODONE (immediate release) (ROXICODONE) tablet 2.5-5 mg, 2.5-5 mg, oral, Q4H PRN polyethylene glycol (MIRALAX) packet 17 g, 17 g, oral, DAILY polyethylene glycol (MIRALAX) packet 34 g, 34 g, oral, TID PRN [START ON 08/21/2019] predniSONE (DELTASONE) tablet 60 mg, 60 mg, oral, DAILY FOLLOWED BY* * [START ON 08/22/2019] predniSONE (DELTASONE) tablet 40 mg, 40 mg, oral, DAILY FOLLOWED BY [START ON 08/23/2019] predniSONE (DELTASONE) tablet 30 mg, 30 mg, oral, DAILY FOLLOWED B Y [START ON 08/24/2019] predniSONE (DELTASONE) tablet 20 mg, 20 mg, oral, DAILY probiotic kefir (MAGEN'S KEFIR), , oral, BID QUEtiapine (SEROQUEL) tablet 25 mg, 25 mg, oral, HS QUEtiapine (SEROQUEL) tablet 25 mg, 25 mg, oral, HS PRN senna-docusate (SENOKOT S) 8.6-50 mg 1 tablet, 1 tablet, oral, BID tacrolimus capsule 5 mg, 5 mg, oral, BID ( and ) tamsulosin (FLOMAX) capsule 0.4 mg, 0.4 mg, oral, DAILY [START ON 08/21/2019] trimethoprim-sulfamethoxazole (BACTRIM, SEPTRA) 80-400 mg 1 tablet, 1 tablet, oral, Once per day on Sat valGANciclovir (VALCYTE) tablet 450 mg, 450 mg, oral, DAILY Allergies Allergen Reactions Doxycycline Hives and Rash O: Last Vitals: BP 141/77 (BP Location: Left upper arm, Patient Position: Lying on back) | Pulse 89 | Temp 36.5 C (97.7 F) (Oral) | Resp 18 | Ht 1.803 m (5' 11") | Wt 102.6 kg (226 lb 3.1 oz) | SpO2 100% | BMI 31.55 kg/m | BSA 2.27 m 24 Hour Vital Min/Max: Systolic (24hrs), Av , Min:132 , Max:141 Diastolic (24hrs), Av, Min:70, Max:84 Pulse Min: 78 Max: 93 Temp Min: 36.4 C (97.5 F) Max: 36.5 C (97.7 F) Resp Min: 18 Max: 18 SpO2 Min: 99 % Max: 100 % Intake/Output Summary (Last 24 hours) at 08/20/2019 1029 Last data filed at 08/20/2019 0906 Gross per 24 hour Intake 2073.89 ml Output 1595 ml Net 478.89 ml Physical Exam: General Appearance: Well developed, Well nourished, No apparent distress pleasant conversa nt. Standing up, using walker, working with OT, brushing his teeth HEENT: Sclera minimally icteric. Moist mucous membranes Respiratory: Breathing comfortably on room air Abdominal: distended, as on prior exam Skin: minimal jaundice, no rashes on exposed skin Neurologic: Face symmetric, pupils equally round. Able to move all 4 extremities spontaneously against gravity, alert and oriented x 3, no fo julia deficits grossly. No visible tremor. Psychiatric: bright affect, mood and behavior appropriate Labs: Lab Results Component Value Date A1C 8.1 07/17/2019 A1C <3.5 04/21/2019 No results for input(s): CHOL, LDL, HDL, TRI in the last 8640 hours. Recent Labs 08/18/1961308/19/1924 08/20/19 0609 AST 40 23 18 ALT 164* 122* 101* TBILI 1.7* 1.5* 1.5* AP 34* 33* 39* ALB 3.3* 3.5 3.8 TP 5.5* 5.4* 6.1* Recent Labs 08/18/19 0614 08/19/19 0624 08/20/19 0609 08/20/19 0820 08/20/19 0904 08/20/19 1004 GLU 154* | 147* < > 140* < > 160* < > 132* 126* 154* BUN 77* -- 97* -- 107* -- -- -- -- CR 1.83* -- 2.17* -- 2.41* -- -- -- -- ALB 3.3* -- 3.5 -- 3.8 -- -- -- -- CA 8.5* -- 8.2* -- 8.5* -- -- -- -- NA 138 -- 140 -- 137 -- -- -- -- K 4.9 -- 4.8 -- 4.8 -- -- -- -- CL 108 -- 108 -- 108 -- -- -- -- BICARB 21 -- 22 -- 21 -- -- -- -- < > = values in this interval not displayed. Lab Results Component Value Date TSH 0.47 07/18/2019 TSH 1.33 04/21/2019 [ Reviewed ] Marilee Welch MD - 08/19/2019 2:17 PM PDTFormatting of this note might be different from the orig inal. Endocrinology Follow Up Consult Note Reason for consult: steroid-induced hyperglycemia Consult Attending: Dr. Will Rosario Primary Batch Blender: none Requesting Attending: Marsha Garcia MD Assessment: Doug Lawson is a 54 y.o. 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 Endocrinology has been consulted for glycemic management in th e setting of coricosteroid and tube-feed related hyperglycemia. Prior to this hospitalization, he had not been diagnosed with diabetes nor been on any hypo glycemic agents, but developed significant hyperglycemia early in this hospital course (BG 3 00s-400s 08/02-08/05), found with HbA1c 8.1% (07/17), with development of diabetes suspected secondary to hemochromatosis. Additionally, he received Methylprednisolone 500mg 08/16 with transplant, 250mg 08/17, 125m g 08/18, 100mg 08/19, with plan for slow ongoing taper. He had been receiving overnight tub e feeds prior to his surgery and was started on daytime tube-feeds 08/18, with plan to incre ase to goal 70 ml / hr today. He has been on a regular insulin drip EndoTool protocol post-operatively. In order to offe r recommendations for transition off Infusion to SubQ insulin, we need to monitor his insuli n needs on a consistent rate of tube feeds and, ideally, on a consistent steroid dose, but r ecognize that this will be in flux while tapering. With the plan to increase to goal by 17.00 (per RN), we can monitor his insulin requirement s overnight and, if stable, plan to transition to SubQ tomorrow morning. Recommendations: Reviewing prior insulin requirements on Tube Feeds earlier in hospitalization, made estimat es to our best ability. 20ml/hr x 1L/1000ml x 24h = 0.480 L x 140 c/L = 67.2 g carbs / day on 20ml/hr 70 ml/hr / 20ml/hr = 3.5 67.2 g carbs / day x 3.5 = 235 g carb / day on 75 ml/hr For initial transition from Insulin Infusion to SubQ, recommend starting with conservative/ reduced dose. Start 40u Glargine nightly Start 13u NPH q8h once Tube Feeds at goal *Continue insulin infusion until 2h after 2nd dose of NPH Thank you for this consult. The endocrine consult team will continue to follow while admit jeannette. Chasidy Navarrete MD Internal Medicine PGY-3 Pager: [phone] This patient's assessment and plan was discussed with consult attending Dr. Will Rosario who agrees with above assessment and recommendations. Interval Events: Continuing on insulin drip CBGs 120s up to 180s, last 170s Continuing on Tube Feeds: Rates 20ml/hr yesterday, up to 50ml/hr now Planning to increase to goal of 70 mL/hr x 24 hr/day per Speech Language Pathologist Travel recs Continuing regular diet Methylprednisolone: 500mg 08/16 with transplant, 250mg 08/17, 125mg 08/18 Subjective: Feeling well today, again expresses gratitude for his care here. His Uncle and Aunt are he re to visit him today. No lightheadedness, dizziness, abdominal pain or nausea, tolerating meals. No chest pain or shortness of breath. No confusions, hallucinations. Tremor is still present, with hand extension, unchanged from yesterday. Likewise, lower ext remity swelling significant but unchanged. Asked Donell what he knows about his hospital course, why he is receiving tube feeds and insul in via infusion. He understands that this is to keep him on the "fast track" to recovery. I emphasized that this tube feed nutrition is important for his recovery, as is his effort to eat regular food, get up out of bed as tolerated, and rest. I explained that the tube feeds and steroids both contribute to high blood sugars, which is why he is on the infusion. I told him that we could stop this infusion as soon as we have e nough information to safely recommend a subcutaneous insulin regimen. He expressed understanding with this plan. Inpatient Medications acetaminophen (TYLENOL) tablet 500 mg, 500 mg, oral, Q6H PRN albumin human (BUMINATE, FLEXBUMIN) 25 % injection 25 g, 25 g, intravenous, Q8H albumin human (BUMINATE, FLEXBUMIN) 5 % injection 25 g, 25 g, intravenous, DAILY PRN amiodarone (CORDARONE) tablet 200 mg, 200 mg, oral, DAILY aspirin tablet 325 mg, 325 mg, oral, DAILY bisacodyl (DULCOLAX) suppository 10 mg, 10 mg, rectal, DAILY PRN dextrose 5%-NaCl 0.45% IV infusion, 5-400 mL, intravenous, PRN dextrose 50 % in water IV 15-150 mL, 15-150 mL, intravenous, PRN [COMPLETED] fluconazole IV 400 mg IN NaCl (RTU), 400 mg, intravenous, ONCE FOLLOWED BY fluconazole (DIFLUCAN) tablet 400 mg, 400 mg, oral, Once per day on Mon insulin regular bolus from continuous infusion 1-50 Units, 1-50 Units, intravenous, NEED ED (BOLUS) insulin regular in NaCl 0.9% IV infusion (1 unit/mL), 0.1-50 Units/hr, intravenous, CONTINU OUS lidocaine (LIDODERM) 5 % patch 1 patch, 1 patch, transdermal, Q24H lidocaine (LIDODERM) 5 % patch 1 patch, 1 patch, transdermal, Q24H [COMPLETED] methylPREDNISolone sod succ (SOLU-MEDROL) 250 mg in NaCl 0.9 % (NS) IV, 250 mg, intravenous, QAM FOLLOWED BY [COMPLETED] methylPREDNISolone sod succ (PF) (SOLU-MEDROL) injection 125 mg, 125 mg, intravenous, QAM FOLLOWED BY [COMPLETED] methylPREDNISolone s od succ (PF) (SOLU-MEDROL) injection 100 mg, 100 mg, intravenous, QAM FOLLOWED BY [START ON 08/20/2019] methylPREDNISolone sod succ (PF) (SOLU-MEDROL) injection 80 mg, 80 mg, intra venous, QAM FOLLOWED BY [DISCONTINUED] methylPREDNISolone sod succ (PF) (SOLU-MEDROL) in jection 60 mg, 60 mg, intravenous, QAM FOLLOWED BY [DISCONTINUED] methylPREDNISolone sod succ (SOLU-MEDROL) injection 40 mg, 40 mg, intravenous, QAM FOLLOWED BY [DISCONTINUED] methylPREDNISolone sod succ (SOLU-MEDROL) injection 30 mg, 30 mg, intravenous, QAM FOLLOWE D BY [DISCONTINUED] methylPREDNISolone sod succ (SOLU-MEDROL) injection 20 mg, 20 mg, intr avenous, QAM metoprolol tartrate (LOPRESSOR) tablet 6.25 mg, 6.25 mg, oral, BID mycophenolate (CELLCEPT) capsule 1,000 mg, 1,000 mg, oral, BID (MMF) omeprazole (PRILOSEC) capsule 20 mg, 20 mg, oral, BEFORE BREAKFAST oxyCODONE (immediate release) (ROXICODONE) tablet 2.5-5 mg, 2.5-5 mg, oral, Q4H PRN polyethylene glycol (MIRALAX) packet 34 g, 34 g, oral, TID PRN [START ON 08/21/2019] predniSONE (DELTASONE) tablet 60 mg, 60 mg, oral, DAILY FOLLOWED BY* * [START ON 08/22/2019] predniSONE (DELTASONE) tablet 40 mg, 40 mg, oral, DAILY FOLLOWED BY [START ON 08/23/2019] predniSONE (DELTASONE) tablet 30 mg, 30 mg, oral, DAILY FOLLOWED B Y [START ON 08/24/2019] predniSONE (DELTASONE) tablet 20 mg, 20 mg, oral, DAILY QUEtiapine (SEROQUEL) tablet 25 mg, 25 mg, oral, HS QUEtiapine (SEROQUEL) tablet 25 mg, 25 mg, oral, HS PRN senna-docusate (SENOKOT S) 8.6-50 mg 1 tablet, 1 tablet, oral, BID tacrolimus capsule 5 mg, 5 mg, oral, BID ( and ) tamsulosin (FLOMAX) capsule 0.4 mg, 0.4 mg, oral, DAILY [START ON 08/21/2019] trimethoprim-sulfamethoxazole (BACTRIM, SEPTRA) 80-400 mg 1 tablet, 1 tablet, oral, Once per day on Sat valGANciclovir (VALCYTE) tablet 450 mg, 450 mg, oral, DAILY Allergies Allergen Reactions Doxycycline Hives and Rash O: Last Vitals: BP 132/72 | Pulse 81 | Temp 36.5 C (97.7 F) | Resp 18 | Ht 1.803 m (5' 11") | Wt 102.6 kg (226 lb 3.1 oz) | SpO2 99% | BMI 31.55 kg/m | BSA 2.27 m 24 Hour Vital Min/Max: Systolic (24hrs), Av , Min:131 , Max:141 Diastolic (24hrs), Av, Min:72, Max:83 Pulse Min: 75 Max: 91 Temp Min: 36.4 C (97.5 F) Max: 36.6 C (97.9 F) Resp Min: 16 Max: 19 SpO2 Min: 98 % Max: 100 % Intake/Output Summary (Last 24 hours) at 08/19/2019 1417 Last data filed at 08/19/2019 1100 Gross per 24 hour Intake 1918.56 ml Output 1015 ml Net 903.56 ml Physical Exam: General Appearance: Well developed, Well nourished, No apparent distress pleasant conversa nt HEENT: scleral icterus, MMM, no exophthalmos, no chemosis, sclera anicteric Cardiovascular: regular rate and rhythm, IV/ early blowing systolic murmur heard best upp er sternal borders Respiratory:Normal effort, in no respiratory distress no audible wheeze clear to auscultati on bilaterally B/L, no wheezes, rales, or rhonchi Abdominal: abdominal binder in place, nontender, decreased BS Extremities: peripheral pulses intact, bilateral lower extremity edema, 2+ pitting over fee t Skin: minimal jaundice, no rashes on exposed skin Neurologic: Face symmetric, pupils equally round. Able to move all 4 extremities spontaneou sly against gravity, alert and oriented x 3, no focal deficits grossly, mild tremor on hand extension Psychiatric: bright affect, mood and behavior appropriate Labs: Lab Results Component Value Date A1C 8.1 07/17/2019 A1C <3.5 04/21/2019 No results for input(s): CHOL, LDL, HDL, TRI in the last 8640 hours. Recent Labs 08/17/191608/18/1914 08/19/19 0624 AST 186* 40 23 ALT 346* 164* 122* TBILI 2.2* 1.7* 1.5* AP 46* 34* 33* ALB 2.8* 3.3* 3.5 TP 5.2* 5.5* 5.4* Recent Labs 08/17/19 00108/18/19 0614 08/19/19 0624 08/19/19 1207 08/19/19 1251 08/19/19 1341 GLU 136* < > 154* | 147* < > 140* < > 159* 176* 172* BUN 58* -- 77* -- 97* -- -- -- -- CR 1.35* -- 1.83* -- 2.17* -- -- -- -- ALB 2.8* -- 3.3* -- 3.5 -- -- -- -- CA 8.4* -- 8.5* -- 8.2* -- -- -- -- NA 141 -- 138 -- 140 -- -- -- -- K 4.9 -- 4.9 -- 4.8 -- -- -- -- CL 110* -- 108 -- 108 -- -- -- -- BICARB 22 -- 21 -- 22 -- -- -- -- < > = values in this interval not displayed. Lab Results Component Value Date TSH 0.47 07/18/2019 TSH 1.33 04/21/2019 [ Reviewed ] Iram Culver, LEARNING ENGINEER - 08/18/2019 12:21 PM PDTPost- Transplant Social Work Inpatient Visit Purpose of Visit: LEARNING ENGINEER met with pt at his bedside to assess coping after transplant. Pt received do nor liver transplant on 08/16/19. Pt s pre-tx psychosocial assessment was completed on 04/22. Pt s Coping/Adjustment to Transplant Recovery: Pt was laying in bed awake. He reports to be feeling much better than he did prior to the t ransplant. Pt states his main issue at this time is lack of sleep. He has not slept since hi s surgery on Saturday. He is hoping he will be provided with a sleep aid this evening. Pt jeannette ed his sister had back surgery on Saturday and became very tearful. He said she has postponed her surgery twice, as she is his identified primary support. He feels stressed about his dis charge plan and timing of when his mother will arrive. He said worst case senario he could s vargas with his aunt and uncle for a few days, but is not sure that would be the safest plan. Romaine duarte agreed to call his mother to further clarify his post-transplant support plan. We revi ewed the side effects of prednisone, including changes in mood, irritability and tearfulness . He understands that they should subside over time and that he can reach out for support as needed. Post-Hospital Support Plan: Fittings Finisher called pt's mother Priyanka ([phone]) to discuss pt's post-discharge plan. Pt's cas Logan is his identified primary support. Priyanka clarified Doreen did not have surgery, bu t had an injection in her back for nerve pain. She is scheduled to have another injection on August 24 and then will come out to [place]. His mother is his identified secondary sup port and is planning to drive out from [place]. She is planning to leave or Saturday to arrive in [place] on Saturday. She states the weather is suppose to warm up and she is hoping the snow will melt. Fittings Finisher shared pt is anticipated to be ready for discharge as early as . Priyanka said she was told pt would be in the hospital for 7-10 days on Saturday evening a nd she has made plans accordingly. Priyanka shared they have rented a house to stay in near [facility] and will get the keys on Saturday. Priyanka would greatly appreciate if pt could stay in hospital until Saturday morning. Pt does have an aunt and uncle in [place], however she is n ot sure they would be able to meet his care needs, as they are in their early 80's. Lorelei Logan will alternate staying with pt during the first three months post-discharge. LEARNING ENGINEER discussed discharge plan with post-gas torch brazier, who discussed with surgeon team. She will plan to drop off a book in pt's room on Saturday and plan for post-transplant teaching M at 10am. Updated Priyanka, who was very thankful. She will plan to be in pt's sam m at 10am Saturday and is aware teaching will take a few hrs. Pt and his family is aware of the frequent appointments that he will have over the first th ree months after discharge. He feels well supported with his support system and is appreciat prudence of the guidance being provided by the transplant team. Discharge Plan: Pt will likely discharge on August 24. Additional Concerns/Needs: None at this time. Conclusion & Follow-Up Plan: LEARNING ENGINEER will continue to follow. Please page with any psychosocial needs or concerns. Amaris Medina LCSW Clinical Transplant Float [employer]iser Pg # [id number] signed by Amaris Medina LCSW at 08/18/2019 1:08 PM Chasidy Sheehan MD - 08/18/2019 9:48 AM PDTFormatting of this note might be different from t he original. Endocrinology Follow Up Consult Note Reason for consult: steroid-induced hyperglycemia Consult Attending: Dr. Will Rosario Primary Batch Blender: none Requesting Attending: Marsha Garcia MD Assessment: Doug Lawson is a 54 y.o. 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 Endocrinology has been consulted for glycemic management in e setting of steroid-induced and tube-feed related hyperglycemia. Prior to this hospitalization, he had not been diagnosed with diabetes nor been on any hypo glycemic agents, but developed significant hyperglycemia during this hospitalization (300s-4 00s 08/02-08/05) with development of diabetes suspected secondary to hemochromatosis. HbA1c 8.1% (07/17), elevated notably in the setting of spur cell anemia. He received Methylpredni solone 500mg 08/16 with transplant, 250mg 08/17, 125mg 08/18 and was started on regular insu michaela drip EndoTool protocol post-operatively. He was started on daytime tube-feeds yesterday at noon, at a low rate. Today, plan to increase tube feed rate to goal, transition to regu lar diet, and continue steroid taper. Given these changes, all of which affecting insulin r equirements, we recommend continuing the insulin drip until he is at stable tube feed rate a nd steroid dosing, so that we can most accurately estimate insulin requirements off the drip . Recommendations: Continue insulin drip Will need to monitor insulin requirements once on stable tube feed rate Likewise, would ideally monitor insulin requirements on stable dose of steroids Once on tube feeds at goal / steroid taper established, and insulin requirements stable > can consider transitioning off drip Thank you for this consult. The endocrine consult team will continue to follow while admit jeannette. Chasidy Navarrete MD Internal Medicine PGY-3 Pager: [phone] This patient's assessment and plan was discussed with consult attending Dr. Will Rosario who agrees with above assessment and recommendations. Interval Events: Continuing on insulin drip CBGs 110s - 170s, last 126 Started on tube feeds yesterday at noon 20 ml / hr Increased to 80 ml / hr overnight, back to 60 ml / hr currently Planning to increase to goal of 70 mL/hr x 24 hr/day per Speech Language Pathologist Travel recs. Note: Will provide 1680 mL, 2530 kcals, 158 gm protein, 235 gm carbs, 1294 mL useable fluid Transitioned from clear liquid to regular diet this morning Methylprednisolone: 500mg 08/16 with transplant, 250mg 08/17, 125mg 08/18 Subjective: Feels well this morning. Expresses a great deal of gratitude for his entire team and their teamwork together at [facility]. "This has been quite a ride..." he reflects, and becomes tearful saying how glad he is to have a second chance at live. "I've learned from the first one." Symptomatically, feels much improved since his surgery 08/16, without abdominal pain at res t, nausea. Has been passing gas and is trying a regular diet this morning. He laughs when nixon eduardo tells me how he nearly choked on his eggs, having eaten them so quickly out of excitement. No chest pain, shortness of breath, lightheadedness, dizziness, diaphoresis, tremor. Inpatient Medications acetaminophen (TYLENOL) tablet 500 mg, 500 mg, oral, Q6H PRN albumin human (BUMINATE, FLEXBUMIN) 5 % injection 25 g, 25 g, intravenous, DAILY PRN amiodarone (CORDARONE) tablet 200 mg, 200 mg, oral, DAILY aspirin tablet 325 mg, 325 mg, oral, DAILY bisacodyl (DULCOLAX) suppository 10 mg, 10 mg, rectal, DAILY PRN dextrose 5%-NaCl 0.45% IV infusion, 5-400 mL, intravenous, PRN dextrose 50 % in water IV 15-150 mL, 15-150 mL, intravenous, PRN [COMPLETED] fluconazole IV 400 mg IN NaCl (RTU), 400 mg, intravenous, ONCE FOLLOWED BY fluconazole (DIFLUCAN) tablet 400 mg, 400 mg, oral, Once per day on Sat ganciclovir sodium 500 mg in dextrose 5 % IV, 500 mg, intravenous, Q24H insulin regular bolus from continuous infusion 1-50 Units, 1-50 Units, intravenous, NEED ED (BOLUS) insulin regular in NaCl 0.9% IV infusion (1 unit/mL), 0.1-50 Units/hr, intravenous, CONTINU OUS lidocaine (LIDODERM) 5 % patch 1 patch, 1 patch, transdermal, Q24H lidocaine (LIDODERM) 5 % patch 1 patch, 1 patch, transdermal, Q24H [COMPLETED] methylPREDNISolone sod succ (SOLU-MEDROL) 250 mg in NaCl 0.9 % (NS) IV, 250 mg, intravenous, QAM FOLLOWED BY [COMPLETED] methylPREDNISolone sod succ (PF) (SOLU-MEDROL) injection 125 mg, 125 mg, intravenous, QAM FOLLOWED BY [START ON 08/19/2019] methylPRED NISolone sod succ (PF) (SOLU-MEDROL) injection 100 mg, 100 mg, intravenous, QAM FOLLOWED B Y [START ON 08/20/2019] methylPREDNISolone sod succ (PF) (SOLU-MEDROL) injection 80 mg, 80 mg, intravenous, QAM FOLLOWED BY [START ON 08/21/2019] methylPREDNISolone sod succ (PF) (SOLU-MEDROL) injection 60 mg, 60 mg, intravenous, QAM FOLLOWED BY [START ON 08/22/2019] methylPREDNISolone sod succ (SOLU-MEDROL) injection 40 mg, 40 mg, intravenous, QAM FOLLOWE D BY [START ON 08/23/2019] methylPREDNISolone sod succ (SOLU-MEDROL) injection 30 mg, 30 mg , intravenous, QAM FOLLOWED BY [START ON 08/24/2019] methylPREDNISolone sod succ (SOLU-ME DROL) injection 20 mg, 20 mg, intravenous, QAM metoprolol tartrate (LOPRESSOR) tablet 6.25 mg, 6.25 mg, feeding tube, BID mycophenolate (CELLCEPT) IV 1,000 mg, 1,000 mg, intravenous, BID omeprazole (PRILOSEC) oral suspension (compound) 20 mg, 20 mg, feeding tube, BEFORE BREAKFA ST oxyCODONE (immediate release) (ROXICODONE) tablet 2.5-5 mg, 2.5-5 mg, feeding tube, Q4H PRN polyethylene glycol (MIRALAX) packet 34 g, 34 g, oral, TID PRN QUEtiapine (SEROQUEL) tablet 25 mg, 25 mg, oral, HS QUEtiapine (SEROQUEL) tablet 25 mg, 25 mg, oral, HS PRN senna-docusate (SENOKOT S) 8.6-50 mg 1 tablet, 1 tablet, oral, BID tacrolimus 0.5 mg/mL suspension (compound) 2 mg, 2 mg, feeding tube, BID ( and ) tamsulosin (FLOMAX) capsule 0.4 mg, 0.4 mg, oral, DAILY trimethoprim-sulfamethoxazole (BACTRIM, SEPTRA) 80-400 mg 1 tablet, 1 tablet, oral, DAILY Allergies Allergen Reactions Doxycycline Hives and Rash O: Last Vitals: BP 138/79 (BP Location: Left upper arm, Patient Position: Sitting) | Puls e 90 | Temp 36.4 C (97.5 F) (Bladder) | Resp 15 | Ht 1.803 m (5' 10.98") | Wt 98.2 k g (216 lb 7.9 oz) | SpO2 99% | BMI 30.21 kg/m | BSA 2.22 m 24 Hour Vital Min/Max: Systolic (24hrs), Av , Min:133 , Max:144 Diastolic (24hrs), Av, Min:75, Max:86 Pulse Min: 68 Max: 90 Temp Min: 36.4 C (97.5 F) Max: 36.9 C (98.4 F) Resp Min: 15 Max: 21 SpO2 Min: 97 % Max: 100 % Intake/Output Summary (Last 24 hours) at 08/18/2019 0948 Last data filed at 08/18/2019 0917 Gross per 24 hour Intake 2935.96 ml Output 2252 ml Net 683.96 ml Physical Exam: General Appearance: Well developed, Well nourished, No apparent distress pleasant conversa nt HEENT: scleral icterus, MMM, no exophthalmos, no chemosis, sclera anicteric Cardiovascular: regular rate and rhythm, IV/ early blowing systolic murmur heard best upp er sternal borders Respiratory:Normal effort, in no respiratory distress no audible wheeze clear to auscultati on bilaterally B/L, no wheezes, rales, or rhonchi Abdominal: abdominal binder in place, nontender, decreased BS Extremities: peripheral pulses intact, bilateral lower extremity edema, 2+ pitting over fee t Skin: minimal jaundice, no rashes on exposed skin Neurologic: Face symmetric, pupils equally round. Able to move all 4 extremities spontaneou sly against gravity, alert and oriented x 3, no focal deficits grossly, mild tremor on hand extension Psychiatric: bright affect, mood and behavior appropriate Labs: Lab Results Component Value Date A1C 8.1 07/17/2019 A1C <3.5 04/21/2019 No results for input(s): CHOL, LDL, HDL, TRI in the last 8640 hours. Recent Labs 08/16/19205108/17/191608/18/19 0614 AST 253* 186* 40 ALT 398* 346* 164* TBILI 2.3* 2.2* 1.7* AP 53 46* 34* ALB 2.6* 2.8* 3.3* TP 5.1* 5.2* 5.5* Recent Labs 08/16/19205108/17/191608/18/19 0614 08/18/19 0710 08/18/19 0840 GLU 161* < > 136* < > 154* | 147* 126* 126* BUN 57* -- 58* -- 77* -- -- CR 1.32* -- 1.35* -- 1.83* -- -- ALB 2.6* -- 2.8* -- 3.3* -- -- CA 8.5* -- 8.4* -- 8.5* -- -- NA 140 -- 141 -- 138 -- -- K 4.9 -- 4.9 -- 4.9 -- -- CL 110* -- 110* -- 108 -- -- BICARB 24 -- 22 -- 21 -- -- < > = values in this interval not displayed. Lab Results Component Value Date TSH 0.47 07/18/2019 TSH 1.33 04/21/2019 [ Reviewed ] Kenneth Sharma MD - 08/17/2019 7:19 PM PDTAssociated Order(s): IP CONSULT TO ENDOCRINOLOGY, DIABETES & M ETABOLISM Endocrinology Initial Consult Note Reason for consult: steroid-induced hyperglycemia Consult Attending: Dr. Will Rosario Primary Batch Blender: none Requesting Attending: Marsha Garcia MD Brief HPI: Doug Lawson is a 54 y.o. male with past medical history significant for end-stage liver disease secondary to alcohol abuse complicated by hepatic encephalopathy, s pur cell anemia with chronic transfusions resulting in iron overload, and KAR on CKD who was admitted for liver transplant, which was completed 08/16/19. During this hospitalization, prior to transplant he had hyperglycemia requiring subcutaneou s insulin. Prior to this hospitalization the patient denies any treatment for diabetes. He has been on nocturnal tube feeds with Nutren 1.5 at 80 mL/hr and was covered with 66 U NPH at 1600 and 25 U NPH QAM. He received 500 mg methylprednisolone with surgery and was starte d on an insulin drip following liver transplant and has continued on this since then. He wa s started on Impact tube feeds at 20 mL/hr at ~1200 today and plans on increasing by 15 mL/h r Q4-6 hrs to goal of 70 mL/hr. ROS: Positive for: abdominal pain, weight gain, LE edema A complete 13 system ROS done and notable for what was mentioned in HPI all other systems n egative. Past Medical and Surgical History Past Medical History: Diagnosis Date Cirrhosis (HCC) CKD (chronic kidney disease) Past Surgical History Procedure Laterality Date Leg surgery Outpatient Medications Prior to Admission Medications Prescriptions deferiprone 500 mg oral tablet Sig: Take 4 tablets (2,000mg) by mouth three times daily. furosemide 20 mg oral tablet Sig: Take 2 tablets by mouth two times daily. lactulose 10 gram/15 mL oral solution Sig: Take 15 mL by mouth two times daily. metoprolol succinate 50 mg oral tablet extended release 24 hr Sig: Take 0.5 tablets by mouth once daily. spironolactone 100 mg oral tablet Sig: Take 1 tablet by mouth once daily. Facility-Administered Medications: None Inpatient Medications acetaminophen (TYLENOL) tablet 500 mg, 500 mg, oral, Q6H PRN albumin human (BUMINATE, FLEXBUMIN) 25 % injection 25 g, 25 g, intravenous, Q6H albumin human (BUMINATE, FLEXBUMIN) 5 % injection 25 g, 25 g, intravenous, DAILY PRN amiodarone (CORDARONE) tablet 200 mg, 200 mg, oral, DAILY aspirin tablet 325 mg, 325 mg, oral, DAILY bisacodyl (DULCOLAX) suppository 10 mg, 10 mg, rectal, DAILY PRN dextrose 5%-NaCl 0.45% IV infusion, 5-400 mL, intravenous, PRN dextrose 50 % in water IV 15-150 mL, 15-150 mL, intravenous, PRN [COMPLETED] fluconazole IV 400 mg IN NaCl (RTU), 400 mg, intravenous, ONCE FOLLOWED BY fluconazole (DIFLUCAN) tablet 400 mg, 400 mg, oral, Once per day on Sat ganciclovir sodium 500 mg in dextrose 5 % IV, 500 mg, intravenous, Q24H insulin regular bolus from continuous infusion 1-50 Units, 1-50 Units, intravenous, NEED ED (BOLUS) insulin regular in NaCl 0.9% IV infusion (1 unit/mL), 0.1-50 Units/hr, intravenous, CONTINU OUS lidocaine (LIDODERM) 5 % patch 1 patch, 1 patch, transdermal, Q24H lidocaine (LIDODERM) 5 % patch 1 patch, 1 patch, transdermal, Q24H [COMPLETED] methylPREDNISolone sod succ (SOLU-MEDROL) 250 mg in NaCl 0.9 % (NS) IV, 250 mg, intravenous, QAM FOLLOWED BY [START ON 08/18/2019] methylPREDNISolone sod succ (PF) (SO LOLY-MEDROL) injection 125 mg, 125 mg, intravenous, QAM FOLLOWED BY [START ON 08/19/2019] methylPREDNISolone sod succ (PF) (SOLU-MEDROL) injection 100 mg, 100 mg, intravenous, QAM FOLLOWED BY [START ON 08/20/2019] methylPREDNISolone sod succ (PF) (SOLU-MEDROL) injection 80 mg, 80 mg, intravenous, QAM FOLLOWED BY [START ON 08/21/2019] methylPREDNISolone sod succ (PF) (SOLU-MEDROL) injection 60 mg, 60 mg, intravenous, QAM FOLLOWED BY [START ON 10/22/2018] methylPREDNISolone sod succ (SOLU-MEDROL) injection 40 mg, 40 mg, intravenous, QAM FOLLOWED BY [START ON 08/23/2019] methylPREDNISolone sod succ (SOLU-MEDROL) injection 30 mg, 30 mg, intravenous, QAM FOLLOWED BY [START ON 08/24/2019] methylPREDNISolone sod suc c (SOLU-MEDROL) injection 20 mg, 20 mg, intravenous, QAM metoprolol tartrate (LOPRESSOR) tablet 6.25 mg, 6.25 mg, feeding tube, BID mycophenolate (CELLCEPT) IV 1,000 mg, 1,000 mg, intravenous, BID omeprazole (PRILOSEC) oral suspension (compound) 20 mg, 20 mg, feeding tube, BEFORE BREAKFA ST oxyCODONE (immediate release) (ROXICODONE) tablet 2.5-5 mg, 2.5-5 mg, feeding tube, Q4H PRN polyethylene glycol (MIRALAX) packet 34 g, 34 g, oral, TID PRN senna-docusate (SENOKOT S) 8.6-50 mg 1 tablet, 1 tablet, oral, BID tacrolimus 0.5 mg/mL suspension (compound) 2 mg, 2 mg, feeding tube, BID ( and 18) tamsulosin (FLOMAX) capsule 0.4 mg, 0.4 mg, oral, DAILY trimethoprim-sulfamethoxazole (BACTRIM, SEPTRA) 80-400 mg 1 tablet, 1 tablet, oral, DAILY Allergies Allergen Reactions Doxycycline Hives and Rash Family History Problem Relation Liver cancer Neg Hx Social History Socioeconomic History Marital status: Single [...] Smokeless tobacco: Former User Types: Chew Substance and Sexual Activity Alcohol use: No Frequency: Never Drug use: No Sexual activity: Not on file Lifestyle Physical activity: Days per week: Not on file Minutes per session: Not on file Stress: Not on file Relationships Social connections: Talks on phone: Not on file Gets together: Not on file Attends mormon service: Not on file Active member of club or organization: Not on file Attends meetings of clubs or organizations: Not on file Relationship status: Not on file Other Topics Concern Not on file Social History Narrative Not on file O: Last Vitals: BP 134/76 (BP Location: Right upper arm, Patient Position: Lying on back) | Pulse 86 | Temp 36.4 C (97.5 F) (Bladder) | Resp 17 | Ht 1.803 m (5' 10.98") | Wt 98.2 kg (216 lb 7.9 oz) | SpO2 99% | BMI 30.21 kg/m | BSA 2.22 m 24 Hour Vital Min/Max: Systolic (24hrs), Av , Min:121 , Max:152 Diastolic (24hrs), Av, Min:67, Max:96 Pulse Min: 68 Max: 88 Temp Min: 36.4 C (97.5 F) Max: 37.1 C (98.8 F) Resp Min: 12 Max: 23 SpO2 Min: 98 % Max: 100 % Intake/Output Summary (Last 24 hours) at 08/17/2019 1919 Last data filed at 08/17/2019 1900 Gross per 24 hour Intake 3439.2 ml Output 1923 ml Net 1516.2 ml Physical Exam: General Appearance: Well developed, Well nourished, No apparent distress pleasant conversa nt HEENT: scleral icterus, MMM, no exophthalmos, no chemosis, sclera anicteric Neck:supple, no asymmetry Cardiovascular: regular rate and rhythm, no murmur, no rubs or gallops, +S1 &S2 Respiratory:Normal effort, in no respiratory distress no audible wheeze clear to auscultati on bilaterally B/L, no wheezes, rales, or rhonchi Abdominal: soft, decreased BS Extremities: peripheral pulses intact, no edema Skin: no jaundice, no rashes on exposed skin Neurologic:No facial droop, able to move all 4 extremities spontaneously against gravity, a lert and oriented x 3, no focal deficits grossly, mild tremor Psychiatric: affect, mood and behavior normal Labs: Lab Results Component Value Date A1C 8.1 07/17/2019 A1C <3.5 04/21/2019 No results for input(s): CHOL, LDL, HDL, TRI in the last 8640 hours. Recent Labs 08/16/19 [id number]/19205108/17/19 0017 AST 345* 253* 186* ALT 465* 398* 346* TBILI 2.6* 2.3* 2.2* AP 56 53 46* ALB 2.6* 2.6* 2.8* TP 5.1* 5.1* 5.2* Recent Labs 08/16/19 [id number]/19205108/17/19 0017 08/17/19 1654 08/17/19 1759 08/17/19 1835 GLU 167* < > 161* < > 136* < > 158* 148* 143* BUN 55* -- 57* -- 58* -- -- -- -- CR 1.22 -- 1.32* -- 1.35* -- -- -- -- ALB 2.6* -- 2.6* -- 2.8* -- -- -- -- CA 8.3* -- 8.5* -- 8.4* -- -- -- -- NA 140 -- 140 -- 141 -- -- -- -- K 4.4 -- 4.9 -- 4.9 -- -- -- -- CL 110* -- 110* -- 110* -- -- -- -- BICARB 23 -- 24 -- 22 -- -- -- -- < > = values in this interval not displayed. Lab Results Component Value Date TSH 0.47 07/18/2019 TSH 1.33 04/21/2019 Assessment: Doug Lawson is a 54 y.o. 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 Endocrinology has been consulted for glycemic management in t he setting of steroid-induced hyperglycemia. The patient had high dose steroids yesterday for liver transplant. Prior to hospitalization , the patient had no medications for glycemic management. He has had high and low glucose on this regimen on 70-80 mL/hr tube feeds. In addition, his tube feed rate will be steadily in creased as tolerated. All of this lends itself to continued use of the insulin drip to dete rmine the patient's insulin requirements. Recommendations: Continue insulin drip until tomorrow Will plan on transition if insulin requirements stable and at goal tube feed rate. Thank you for this consult. The endocrine consult team will continue to follow while admit jeannette. Kenneth Dotson MD Pager [phone] Endocrinology Fellow This patient's assessment and plan was discussed with consult attending Dr. Will Rosario who agrees with above assessment and recommendations. Associated attestation - Erich Rosario MD - 10/04/2019 11:00 PM PSTFormatting of this note m ight be different from the original. ENDOCRINOLOGY INPATIENT CONSULT SERVICE - Initial Consultation Attending Note - Abraham I was asked by Dr. Garcia to see Doug Lawson because of steroid-induced hypergly cemia. I have participated in tamez aspects of the review of records, patient interview and e xamination, counseling, and formulation of the evaluation and treatment plan. I agree with documentation by Dr. oDtson. Please see his consultation note for full details of the evalu ation. 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 outboard motor tester Division of Endocrinology, Diabetes and Clinical Nutrition and [facility] [place] Zunilda Gamez, [facility] - 08/16/2019 4:46 AM PDT Trauma / Surgical Critical Care Service Reason for Consult: Intensive post-op monitoring HPI: Doug Lawson is a 54 y.o. male with EtOH cirrhosis (MELD 34) c/b hepatic ence phalopathy and spur cell anemia requiring chronic transfusions w/ 2 Fe overload, who is no w s/p 08/15 OLTx and who presents to the ICU for post-op monitoring. PMHx otherwise notable for KAR on CKD, hemochromatosis, a-fib w/ RvR (metop and amio), EF 55-60% (low for hyperdyn amics of cirrhosis), and T2DM. History obtained from chart. Pt initially presented to for this admission to [facility] on transfer from OSH with decompensated cirrhosis and metabolic encep halopathy, managed by Internal Medicine prior to OR. Procedures: 08/15 OLTx Past Medical History Past Medical History: Diagnosis Date Cirrhosis (HCC) CKD (chronic kidney disease) Past Surgical History Past Surgical History Procedure Laterality Date Leg surgery Family History Family History Problem Relation Liver cancer Neg Hx Social History Social History Socioeconomic History Marital status: Single [...] Smokeless tobacco: Former User Types: Chew Substance and Sexual Activity Alcohol use: No Frequency: Never Drug use: No Sexual activity: Not on file Lifestyle Physical activity: Days per week: Not on file Minutes per session: Not on file Stress: Not on file Relationships Social connections: Talks on phone: Not on file Gets together: Not on file Attends mormon service: Not on file Active member of club or organization: Not on file Attends meetings of clubs or organizations: Not on file Relationship status: Not on file Other Topics Concern Not on file Social History Narrative Not on file Allergies Allergies Allergen Reactions Doxycycline Hives and Rash Home Medication Prior to Admission Medications Prescriptions deferiprone 500 mg oral tablet Sig: Take 4 tablets (2,000mg) by mouth three times daily. furosemide 20 mg oral tablet Sig: Take 2 tablets by mouth two times daily. lactulose 10 gram/15 mL oral solution Sig: Take 15 mL by mouth two times daily. metoprolol succinate 50 mg oral tablet extended release 24 hr Sig: Take 0.5 tablets by mouth once daily. spironolactone 100 mg oral tablet Sig: Take 1 tablet by mouth once daily. Facility-Administered Medications: None Review of Systems: Unable to assess Labs: Pertinent labs were reviewed in [facility]. Imaging: Pertinent imaging was reviewed in [facility]. Physical Exam: BP 99/61 (BP Location: Left upper arm, Patient Position: Lying on back) | Pulse 58 | Temp 36.4 C (97.5 F) (Oral) | Resp 17 | Ht 1.803 m (5' 11") | Wt 98.2 kg (216 lb 7.9 oz) | SpO2 96% | BMI 30.19 kg/m | BSA 2.22 m Gen: Chronically ill appearing man, post op Eyes: Icteric. HENT: NC. CV: NSR. Palp distal pulses. BLE edema. RIJ CVC. RIJ introducer. Art line. Resp: lung gr CTA bilaterally. VAC 18 (7ml/kg) 5 0.3. GI: Right chevron incision dressed, soft, Right drain to bulb suction, SS output : Payton with rust colored urine MSK: Atraumatic. Skin: No rashes, lesions. Jaundiced Neuro: Sedated for my exam Summary: Doug Lawson is a 54 year old man with ESLD (EtOH, MELD 34) who presented s/p OLTx. His operative course was complicated by tachyarrhythmia for which he was reloaded with amio and given IV lidocaine. He requires critical care for multiorgan support. Plans: Neurology: Acute post op pain: ? Intermittent fentanyl ? Transition to low dose Oxy after extubation ? Apap 2 gm Toxic metabolic encephalopathy: -Likely attributed to sedation, anaesthesia and HE -Minimize centrally acting medications HEENT: Pulmonary/Thoracic: Acute post op respiratory insufficiency: ? On VAC, wean to extubate when sedation is metabolized Cardiovascular: Tachyarrhythmia: ? Per anaesthesia report he had tachyarrhythmia in OR with runs of Vtach ? Cardiology involved for SVT, RBBB, AFib ? Continue metoprolol and amiodarone ? Optimize electrolytes Hypotension: ? Likely related to acute hemorrhagic hypovolemia from intraoperative losses ? Received 6:3:1 colloid resuscitation, no cell saver ? Continue phenylephrine and vasopressin to meet MAP goal >65 ? Trend labs per protocol Gastrointestinal/Abdominal: ESLD (Alcoholic Cirrhosis with pre op MELD 34) : ? TX s/p OLTx Immunosuppression: tacrolimus, prednisone, MMF Prophy: Viral: ValGCV Fungal: fluconazole weekly ? PJP and Toxo: tmp/smx ? Post op liver transplant pathway Fluids/Electrolytes/Nutrition: Anasarca: -Minimize IVF HypoK: -Replace Severe protein-calorie malnutrition: -Maintain DHT for supplemental feeding when cleared by Tx -Albumin repletion for 48 hours Renal: KAR on CKD: -KAR likely prerenal. Patient at high risk for HRS, also underlying kidney dysfunction 2/2 nephropathy, hemochromatosis. -Maintain payton, rust colored urine likely due to iron chelator Hematology: Spur cell anemia with iron overload: ? Hematology involved ? Continue home [id number] mg TID when directed by Tx Acute blood loss anemia: -EBL 2L -Received 6:3:1 intra op Acute coagulopathy -Likely consumptive and uremic from surgery -Transfuse one FFP for INR 2.7 Infectious Diseases: Post transplant pathway Endocrinology: Acute stress induced hyperglycemia: ? Endotool Musculoskeletal/Skin: Deconditioning: ? PT F: Clears after extubation A: Fentanyl S: Propofol T: SCDs H: >30 degrees U: PPI G: Endotool Y: per DHT B: Available I: Cordis, CVC, Art line, DHT, NG, YA, PATIENCE PaytonTT D: Extubate and remove NG CODE: Full Disposition: Post op care I spent 58 minutes of critical care admitting Mr. Lawson to the ICU for multiorgan support ZUNILDAMATIAS GMAEZ, ACNP TSICU Associated attestation - Felisha Arroyo MD - 08/16/2019 4:14 PM PDTTICU Attending Note I have reviewed and agree with the above documentation. Please see my separate note from brandi barnhart for a detailed summary of my medical decision making and critical care time. Felisha Arroyo MD field instructor Division of Trauma, Critical Care and Acute Care Surgery Office: [phone] Pager: [phone] Lakshmi Chatterjee RN - 08/05/2019 10:33 AM PDTDiabetes Education Follow-up Note Assessment Patient resting in bed at time of visit, recognizes DM-RN from yesterday. Shares that he w as put back on the transplant list and feels that he should be pretty high up. He would pre concepción to stay in the hospital until he receives his transplant. Rx for insulin pens, Freestyle Lite meter + testing supplies sent to [facility] pharmacy yesterday . All insulin and supplies were covered at $0 co-pay. Education provided Reviewed basic physiology of the pancreas, diabetes Reviewed insulin functions to lower blood glucose levels Importance of glucose control for infection prevention and wound healing, especially in set ting of transplant Use of insulin pen Injection technique and site rotation Education outcome Patient was once again very pleasant and engaged well in conversation and skills practice. He demonstrated ability to use insulin pens: attaching and priming needle, dialing up dose and injecting into demo pillow. Would benefit from ongoing practice during this admission, to increase comfort with this skill. He verbalized willingness to do insulin, saying "I' d rather not but I'll do what I have to do." He once again expressed hope that he will be able to stay in hospital until he receives his transplant. Recommendations Primary Team: 1. Please update the following Rx prior to discharge: Humalog Kwikpens Humulin N Kwikpens BD Katarina Ultra-Fine pen needles (4mm x 32G) Freestyle Lite glucometer Freestyle Lite test strips - testing 4x/day Freestyle lancets - testing 4x/day 2. Please keep DM-RN informed of discharge plan, as it evolves - will impact recommendatio ns and teaching needs. Unit RNs: 1. Please continue to engage patient in DM teaching and have him practice giving his own i nsulin injections, when they are due. 2. Will be getting a Freestyle Lite glucometer and testing supplies, so do not give him th e OneTouch please. 2. Encourage patient to watch DM videos in [facility] Nursing Assessment of Patient Stability Risk Moderately unstable relative to diabetes self-management considering new diagnosis, new to insulin therapy, in setting of resolving hepatic encephalopathy and complex discharge needs. Plan Following - will provide further recommendations and teaching once discharge plan becomes m ore clear. Patient's family (sister & mother) to be here starting 08/12. Will also need to organize s ome education with them, as they will be assisting pt at home. Lakshmi Chatterjee RN, BSN Diabetes Nurse Specialist Adult Inpatient Diabetes Education & Support Services Pager: [phone] Lakshmi Philip RN - 08/04 12:46 PM PDT Diabetes Education Initial Note Diabetes education consult request for new diagnosis diabetes Hx: ESLD 2/2 EtOH c/b hepatic encephalopathy, ascites, spur cell anemia requiring chronic t ransfusions Adm: HRS, SVT Lab Results Component Value Date A1C 8.1 (H) 07/17/2019 No results found for: CPEPTIDE Lab Results Component Value Date GLU 326 (H) 08/04/2019 GLU 409 (H) 08/04/2019 GLU 390 (H) 08/04/2019 Lab Results Component Value Date CR 1.31 (H) 08/04/2019 CR 1.20 08/03/2019 CR 1.21 08/02/2019 Assessment Patient resting in bed at time of visit, reports that his nurse started some diabetes educa tion with him this morning. Is very nervous about doing insulin injections, saying "I do n ot like needles". Per discussion with RN and primary team, discharge plan remains unclear as patient may be r e-listed for liver transplant[place] [facility]. Education provided Basic physiology of the pancreas, diabetes How insulin functions to lower blood glucose levels A1C blood test: What it measures, current level, target/"safe" level BG targets: 80-130 fasting Importance of glucose control for infection prevention and wound healing Materials provided Handouts from [facility] Education outcome Patient was very pleasant in conversation with DM-RN. This was an initial visit, focusing on introducing basic concepts and plan for teaching during admission. DM-RN perceives that there is still some level of disorientation, at times patient seemed to have difficulty trac brennen the conversation. He is agreeable to practicing insulin skills with nurses, doing his insulin injections when they are due. DM-RN will follow along and provide more focused education as discharge plan becomes more c lear. Patient expressed anxiety around discharge plan, and would prefer to stay inpatient or locally as he awaits liver transplant. [place] He sister and mother are planning to take turns coming from [facility] to provide care giving assistance, once he gets his transplant. They will be here next w genny (08/12). DM-RN working to determine cost of insulin/supplies prior to next visit. Recommendations Primary Team: 1. Please send the following Rx to [facility] Pharmacy today (need to determine coverage/co-pay) Humalog Kwikpens - use current inpatient dose, can update at discharge Humulin N Kwikpens - use current inpatient dose, can update at discharg e BD Katarina Ultra-Fine pen needles (4mm x 32G) - injecting up to 6x/day Freestyle Lite glucometer Freestyle Lite test strips - testing 4x/day Freestyle lancets - testing 4x/day Unit RNs: 1. Please continue to engage patient in DM teaching. Focus on insulin skills for now - carver jose him practice drawing up and injecting insulin doses, with supervision 2. Encourage patient to watch DM videos in [facility] Nursing Assessment of Patient Stability Risk Unstable relative to diabetes self-management considering new diagnosis, new to insulin the rapy, in setting of resolving hepatic encephalopathy and complex discharge needs. Plan Following. Patient's family (sister & mother) to be here starting 08/12. Will plan to organize educat ion with them, as they will be assisting pt at home. Lakshmi Chatterjee RN, BSN Diabetes Nurse Specialist Adult Inpatient Diabetes Education & Support Services Pager: [phone] Irene Lima PA-C - 08/03/2019 3:27 PM PDT CARDIOLOGY CONSULT SERVICE PROGRESS NOTE Hospital Day:17 New Question: Risk of amio causing hyperkalemia intra-operatively during liver transplant Brief History: Mr. Lawson, a 54M with ESLD 2/2 EtOH, Meld ~34, for consideration prior to li charlie transplant. 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 EP consulted given atrial arrhythmias and found to be most likely atrial fib vs flutter and was initiated on amiodarone and low dose metoprolol for rate control. Since being initi ated on amio patient has had no further episodes of atrial arrhythmias. He remains admitted for optimization and risk stratification for possible liver transplant. Interval Events/Subjective: Patient maintained on amio Pending liver transplant Current Cardiac Medications amio 200mg daily Metoprolol 6.25mg BID See MAR for complete list Current medications: Current Facility-Administered Medications Medication Dose Route Frequency amiodarone (CORDARONE) tablet 200 mg 200 mg oral DAILY cholecalciferol (VITAMIN D3) capsule 50,000 Units 50,000 Units oral Q7D deferiprone tab 2,000 mg 2,000 mg oral TID dextrose 50 % in water IV 25 mL 25 mL intravenous PRN diclofenac (VOLTAREN) 1 % gel 4 g 4 g topical QID PRN glucagon (GLUCAGEN) injection 1 mg 1 mg intramuscular PRN glucose chewable tablet 16 g 16 g oral PRN insulin lispro (HUMALOG) injection 1-16 Units 1-16 Units subcutaneous QID insulin lispro (HUMALOG) injection 10 Units 10 Units subcutaneous TID W/MEALS [START ON 08/04/2019] insulin NPH (HUMULIN N) injection 25 Units 25 Units subcutaneous BEFORE BREAKFAST insulin NPH (HUMULIN N) injection 35 Units 35 Units subcutaneous HS lactulose (ENULAC) 10 g 15 mL oral Q2H PRN lactulose (ENULAC) 30 g 45 mL oral TID magnesium oxide (MAG-OX) tablet 400 mg 400 mg oral DAILY melatonin tablet 3 mg 3 mg oral HS PRN metoprolol tartrate (LOPRESSOR) tablet 6.25 mg 6.25 mg oral BID midodrine (PROAMITINE) tablet 10 mg 10 mg oral TID multivitamin (THERA VITAMIN) 1 tablet 1 tablet oral DAILY polyethylene glycol (MIRALAX) packet 8.5 g 8.5 g oral DAILY PRN rifAXIMin (XIFAXAN) tablet 550 mg 550 mg oral BID zinc sulfate (ORAZINC, ZINC-220) capsule 50 mg elemental 220 mg total salt oral DAILY Physical Exam: Last 24 hour min/max Temp: 36.7 C (98.1 F) Temp Min: 36.2 C (97.2 F) Max: 37 C (98.6 F) Pulse: 69 Pulse Min: 65 Max: 82 Resp: 16 Resp Min: 16 Max: 18 BP: 111/53 BP Min: 92/45 Max: 119/45 SpO2: 99 % SpO2 Min: 97 % Max: 100 % Body mass index is 25.1 kg/m. Intake/Output Summary (Last 24 hours) at 08/03/2019 1527 Last data filed at 08/03/2019 1400 Gross per 24 hour Intake 1447 ml Output 200 ml Net 1247 ml General Appearance: jaundice, Pleasant, alert, NAD HEENT: NC/AT, PERRLA, EOMI, nares patent, oropharynx clear, no exudate, sclera icterus Respiratory: diffuse crackles bilaterraly Cardiovascular: 3/6 systolic murmur Gastrointestinal: ascites Extremities: warm, peripheral pulses palpable, pitting edema BL Lab: Chemistries: Last 72 Hours (or 3 results): Recent Labs 08/01/1975508/02/1951708/03/19 0714 08/03/19 0739 08/03/19 1236 NA 129* -- 131* -- 130* -- -- K 4.5 -- 4.3 -- 4.4 -- -- CL 101 -- 103 -- 101 -- -- BICARB 21 -- 19* -- 21 -- -- BUN 43* -- 52* -- 53* -- -- CR 1.04 -- 1.21 -- 1.20 -- -- GLU 221* < > 206* < > 371* 394* 239* CA 9.2 -- 8.6 -- 8.6 -- -- MG 1.7 -- -- -- 2.0 -- -- PO4 -- -- -- -- 2.7 -- -- < > = values in this interval not displayed. CBC with diff last 72 hours (or 3 results) Recent Labs 08/01/1975408/02/19517 WBC 4.95 4.69 HB 8.2* 7.3* HCT 23.8* 21.7* PLT 31* 30* Liver tests Recent Labs 07/31/19 0441 08/01/1975508/02/19517 AST 75* 97* 95* ALT 45 56 56 TBILI 11.3* 11.2* 9.4* AP 133* 146* 146* ALB 3.0* 3.2* 2.9* TP 6.6 7.0 6.3* Lab Results Component Value Date INRPT 3.22 (H) 08/02/2019 Lab Results Component Value Date TROPONIN 0.12 07/20/2019 TROPONIN 0.11 07/19/2019 TROPONIN 0.12 07/18/2019 ECG: NSR with RBBB Bifascicular vs trifascicular block Telemetry: NSR Assessment and Recommendations: #Atrial Fib vs Atrial flutter Since being initiated on amiodarone for episodes of AF with RVR he has no longer had any fu rther episodes. Anesthesia has engaged with us for the possibility of stopping amiodarone to reduce the risk of hyperkalemia that would cause life threatening arrhythmias intraoperativ javier. Amio has little to none pro arrhythmic effect and little to none effects causing hyperk alemia. Unfortunately there are no alternative medication options to use and therefore the r isks of patient going into Afib with RVR by stopping amio, which would preclude him from rec eiving a transplant, are greater than the low risk of transient hyperkalemia causing intraop erative arhythmia complications. Lastly, doing a complete AV esther ablation with PPM depende nce procedure prior to liver transplant has its own risks of its own such as infection, endo carditis, etc. that would also increase his risks and preclude him from receiving a liver tr ansplant. It would be out recommendation to continue amiodarone. Dr. David Hoffman MD saw and evaluated this patient and agrees with my assessment and plan as documented above. Irene Mena PA-C [facility] [place] [facility] [place] [id number] Associated attestation - David Hoffman MD - 08/03/2019 11:04 PM PDTI have discussed this case with Ms. Rajesh NAIK, seen the patient, and agree with the plan. We were asked to consult regarding discontinuing amiodarone due to likely transient severe hyperkalemia after OLT graft is flushed at time of transplant. I do not think amiodarone fabián uld be stopped. Very likely to have uncontrolled atrial fibrillation with rapid ventricular response if it is stopped, which would likely significantly complicate or prevent liver cox splant. There is no antiarrhymic agent that is safer in this context, conventional rate cont rol will not be adequate, and pace/ablate is likely higher long-term risk than amiodarone. Overall, there is no clear evidence of proarrhythmia from amioarone in setting of hyperkale derek, though hyperkalemia can certainly cause VT, VF or heart block. Persistent heart block r isk is likely low in setting of only transient intra-op hyperkalemia, but higher in setting of bi- or tri-fasicular block. During his liver transplant surgery, recommend pacer/defibril lator pads on during if that is practical. Could also consider having RIJ sheath in place th at could accommodate temp transvenous pacing wire if patient were to develops persistent com plete heart block or hemodynamically significant second degree AV block. David Hoffman MD Cardiovascular Medicine - Electrophysiology [facility] [place] [facility] Danelle De La Torre - 08/01/2019 12:13 PM PDTFormatting of this note might be different from t he original. Pharmacy Services: Student Admission Medication Reconciliation I have reviewed the patient s home medication list and found it to be accurate with the f ollowing exceptions: Medications Discontinued Prior to Admission: Medication/dose/sig Source of Information Reason for Discontinuation NA Medications Omitted from Prior to Admission list: Medication Dose Route Frequency Source of Information Reason for start NA Changes to Dose/Sig/Route of Medications on Prior to Admission list: Medication Dose Route Frequency Source of Information Reason change was made NA OTC/Herbal Products: Product Dose Route Frequency NA Additional Information: Patient had difficulty participating in a medication reconciliation interview, unable to ve rify metoprolol dose. He wasn't able to verify if he took a half or whole tablet of metoprol ol succinate [employer]. Pharmacy verified last metoprolol succinate 50 mg prescription was written for 1 tablet onc e daily for 90 days last filled on 06/12/2019. A more recent Rx was written on 07/07/2019 for metoprolol succinate 50 mg 0.5 tablet once daily but patient never picked it up. Patient stated he filled deferiprone 500 mg [place] and took two doses [employer]. Allergies: Allergies Allergen Reactions Doxycycline Hives and Rash Doug Lawson is a 54 year old male admitted to . Pharmacy Preferences: [facility] [address] [place] [address] Hours: 8am-9pm Mon-fri; 9-5:30pm Sat-sun E-Prescribing: Yes E-Prescribing Control Substances: Yes [facility] [id number] [facility] [place] [address] Hours: 9am-7pm Mon-fri / 9am-6pm Sat / Closed Sun E-Prescribing: Yes E-Prescribing Control Substances: Yes [address] [place] [address] Hours: 8am-6pm Mon-fri E-Prescribing: Yes E-Prescribing Control Substances: Yes Source of Medication Information: Patient and pharamcy Reliability: Poor -Patient had difficulty participating in the med rec interview. Unable to verify which medi cations patient was taking at home. Insurance Status: Payor/Plan Subscr Sex Relation Sub. Ins. ID Effective Group Num 1. TOUCHER UP MEDICAID - TOUCHER UP [place] DOUG LAWSON FCO* 1965 Male [id number] 05/05/18 [address] [address] 2. SOLID ORGAN TXP - SOLID ORGA* DOUG LAWSON FCO* 1965 Male Self [id number] 03/26/19 [facility] [address] Adherence: Unable to assess Anticipated Discharge Needs: NA The above changes will be reviewed with the supervising pharmacist. The patient s prior t o admission medication list will be updated accordingly. A total of 25 minutes were spent on this activity. All questions concerning medications, in cluding OTC and herbal products, were addressed. For questions regarding this information contact Danelle De La Torre Candidate Class of 2020 Pager # [phone] Associated attestation - Cecille Whitt PharmD - 08/01/2019 12:50 PM PDT PHARMACY SERVICES: ADMISSION MEDICATION RECONCILIATION ADDENDUM I have reviewed the medication reconciliation information compiled by the pharmacy messenger. I have entered the information into the patients prior to admission medication summary. To the best of my knowledge the following is the complete and accurate prior to admission medic ation list. Medications Prior to Admission Medication Sig Dispense Refill Last Dose deferiprone 500 mg oral tablet Take 4 tablets (2,000mg) by mouth three times daily. 360 ta blet 3 furosemide 20 mg oral tablet Take 2 tablets by mouth two times daily. lactulose 10 gram/15 mL oral solution Take 15 mL by mouth two times daily. 15 mL metoprolol succinate 50 mg oral tablet extended release 24 hr Take 0.5 tablets by mouth on ce daily. 60 tablet 1 spironolactone 100 mg oral tablet Take 1 tablet by mouth once daily. Home Medication Assessment: Updated medication list per pharmacy ancillary interview as noted below. Of note Furosemide last filled 04/14/19 for 30DS. Metoprolol is a new dose reduction patient had not yet started. For any further questions regarding this information contact pharmacy, pager #[phone] Thank you for the consult, Cecille Whitt, PharmD Clinical Pharmacist Pager# [phone] Teresita Monk - 07/30/2019 1:49 PM PDT Nephrology Inpatient Consult Note IDENTIFICATION: PATIENT NAME: Doug Lawson : 1965 DATE OF ADMISSION: 07/17/2019 DATE OF SERVICE: 07/30/2019 HOSPITAL DAY: 13 PCP: Sharon David MD REASON FOR CONSULTATION: Metabolic Acidosis IMPRESSION & RECOMMENDATIONS: Doug Lawson is a 54 y.o. male with hx of alcoholic cirrhosis c/b ascites, transfus ion dependent spur cell anemia, nephrolithiasis, who initially presented from OSH for AMS, r enal insufficiency, and hyperglycemia. Hospital course c/b afib with RVR requiring amiodaron e ggt, now on PO amiodarone. Currently being evaluated for liver transplant. Nephrology cons ulted for metabolic acidosis evaluation. Assessment: Metabolic acidosis Likely multifactorial, in the setting of recovering KAR and concurrent stool loss 2/2 lactu lose/rifaximin use.Prior to admission had normal/high serum bicarb. Bicarb trending down sin ce admission. Positive urine osmols suggest poor acidification of the urine. However, urine pH is 5.0. Likely the result of inability to competently acidify urine in the setting of rec ent KAR. No history of autoimmune diseases, including Sjogrens and RA. -Non-anion gap metabolic acidosis -Urine anion gap 16 on 07/29 -Urine pH 5.0 on 07/29 -4 mm kidney stone on CT from 05/19/19 KAR in the setting of ESLD Likely 2/2 to HRS. Presentation consistent with intravascular volume depletion given low al bumen, Urine Na <15, soft pressures -Baseline Cr of ~1.1 -Cr trending down. Serum Cr of 1.05 today Plan: Kidney function and serum bicarbonate levels improving at this time. Would not recommend bi carb replacement. Patient was seen and staffed with Dr. Muller, who agrees with the assessment and plan. Duna Alkhalaileh, OMSIV HPI/ REVIEW OF SYSTEMS: Mr. 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 Hospital course c/b afib with RVR requiri ng amiodarone ggt, now on PO amiodarone. Currently being evaluated for liver transplant. Nep hrology consulted for metabolic acidosis evaluation. States he does not have a history of kidney problems, and denies family members with histor y of kidney problems. Does have a 4mm stone that was found in the left kidney midpole on CT form 05/19/19. Additionally, does admit to having red urine, which has been worked up and see ms to be 2/2 to lactulose use and bilirubin. Due to concerns for RTA, Mr. Lawson was asked about any family history of autoimmune disorde rs, such as Sjogren's or RA. He denied knowing of any sort of history. Additionally, denies a family history of kidney stones. ROS: General: denies CARVER, fevers, weight loss Cardiovascular: denies chest pain, chest pressure, palpitations Respiratory: denies SOB, cough, wheezing GI: denies n/v/d, denies abdominal swelling : admits to red urine. Denies polyuria, dysuria Extremities: admits to chronic LE edema PAST MEDICAL HISTORY: All complete Past Medical/Surgical, Family, and Social Histories were personally reviewed Past Medical History: Diagnosis Date Cirrhosis (HCC) CKD (chronic kidney disease) PAST SURGICAL HISTORY: Past Surgical History: Procedure Laterality Date LEG SURGERY MEDICATIONS: Medications Prior to Admission Medication Sig Dispense Refill Last Dose deferiprone 500 mg oral tablet Take 4 tablets (2,000mg) by mouth three times daily. (Gumaro becerril not taking: Reported on 07/06/2019) 360 tablet 3 Unknown at Unknown time furosemide 20 mg oral tablet Take 2 tablets by mouth two times daily. Unknown at Unkn own time lactulose 10 gram/15 mL oral solution Take 15 mL by mouth two times daily. 15 mL Unkno wn at Unknown time metoprolol succinate 50 mg oral tablet extended release 24 hr Take 0.5 tablets by mouth once daily. 60 tablet 1 Unknown at Unknown time spironolactone 100 mg oral tablet Take 1 tablet by mouth once daily. Unknown at Unkno wn time Current Facility-Administered Medications Medication Dose Route Frequency Last Rate amiodarone (CORDARONE) tablet 200 mg 200 mg oral DAILY deferiprone tab 2,000 mg 2,000 mg oral TID insulin lispro (HUMALOG) injection 1-16 Units 1-16 Units subcutaneous QID insulin lispro (HUMALOG) injection 10 Units 10 Units subcutaneous TID W/MEALS insulin NPH (HUMULIN N) injection 20 Units 20 Units subcutaneous BEFORE BREAKFAST AND HS lactulose (ENULAC) 30 g 45 mL oral TID metoprolol tartrate (LOPRESSOR) tablet 6.25 mg 6.25 mg oral BID midodrine (PROAMITINE) tablet 10 mg 10 mg oral TID rifAXIMin (XIFAXAN) tablet 550 mg 550 mg oral BID zinc sulfate (ORAZINC, ZINC-220) capsule 50 mg elemental 220 mg total salt oral DAILY Current Facility-Administered Medications Medication Dose Route Frequency Last Rate dextrose 50 % in water IV 25 mL 25 mL intravenous PRN diclofenac (VOLTAREN) 1 % gel 4 g 4 g topical QID PRN glucagon (GLUCAGEN) injection 1 mg 1 mg intramuscular PRN glucose chewable tablet 16 g 16 g oral PRN lactulose (ENULAC) 10 g 15 mL oral Q2H PRN melatonin tablet 3 mg 3 mg oral HS PRN polyethylene glycol (MIRALAX) packet 8.5 g 8.5 g oral DAILY PRN Current Facility-Administered Medications Medication Dose Route Frequency Last Rate ALLERGIES: Allergies Allergen Reactions Doxycycline Hives and Rash SOCIAL HISTORY: Social History Socioeconomic History Marital status: Single [...] Smokeless tobacco: Former User Types: Chew Substance and Sexual Activity Alcohol use: No Frequency: Never Drug use: No Sexual activity: Not on file Lifestyle Physical activity: Days per week: Not on file Minutes per session: Not on file Stress: Not on file Relationships Social connections: Talks on phone: Not on file Gets together: Not on file Attends mormon service: Not on file Active member of club or organization: Not on file Attends meetings of clubs or organizations: Not on file Relationship status: Not on file Other Topics Concern Not on file Social History Narrative Not on file FAMILY HISTORY: Family History Problem Relation Liver cancer Neg Hx PHYSICAL EXAM: Last Vitals: BP 109/55 (BP Location: Left upper arm, Patient Position: Lying on back) | Pu lse 65 | Temp 37 C (98.6 F) (Oral) | Resp 16 | Ht 1.803 m (5' 11") | Wt 81.6 kg (180 lb) | SpO2 100% | BMI 25.10 kg/m | BSA 2.02 m O2 Delivery Device: None (room air) (07/30/19 1317) 24 Hour Vital Min/Max: Systolic (24hrs), Av , Min:90 , Max:122 Diastolic (24hrs), Av, Min:52, Max:68 Pulse Min: 61 Max: 70 Temp Min: 36.7 C (98.1 F) Max: 37 C (98.6 F) Resp Min: 15 Max: 16 SpO2 Min: 99 % Max: 100 % Intake/Output Summary (Last 24 hours) at 07/30/2019 1349 Last data filed at 07/30/2019 1332 Gross per 24 hour Intake 1890 ml Output 2150 ml Net -260 ml Constitutional: NAD. Alert and cooperative. Appears as stated age. HEENT: Mucosa moist and pink. Scleral icterus present Neck: Supple, trachea midline. Respiratory: Clear to auscultation bilaterally, normal respiratory effort. CV: Tachycardic. Regular rhythm. No JVD GI: Soft, non-tender, non-distended, normoactive bowel sounds. No Organomegaly. Extremities: Warm and well perfused. +3 pitting edema in bilateral LE Skin: Warm and dry. No rashes or concerning lesions noted. Normal nail-beds., Jaundiced. Neurologic / Musculoskeletal: Grossly non-focal. No Tremor or asterixis. Psychiatric: Pleasant, but appears confused LAB / STUDIES: All blood, urine, radiographic, and other diagnostic test results noted below were personal ly reviewed. Lab Results Component Value Date NA 131 07/30/2019 K 4.3 07/30/2019 CL 104 07/30/2019 BICARB 19 07/30/2019 BUN 39 07/30/2019 CR 1.05 07/30/2019 GLU 233 07/30/2019 CA 8.7 07/30/2019 Lab Results Component Value Date PO4 3.1 07/21/2019 Lab Results Component Value Date MG 1.5 07/26/2019 Lab Results Component Value Date WBC 3.94 07/30/2019 HB 6.8 07/30/2019 HCT 19.9 07/30/2019 PLT 27 07/30/2019 MCV 100.5 07/30/2019 RDW 61.6 07/30/2019 Lab Results Component Value Date URINECOLOR Red 07/29/2019 URAPPEARANCE Clear 07/29/2019 URINEPROTEIN Negative 05/20/2019 URINEPH 5.5 05/20/2019 URSPECGRAV 1.010 05/20/2019 URINEGLUCOSE Negative 05/20/2019 Lab Results Component Value Date URINEAMPPHOS None 07/29/2019 URINEBACTERI None 07/29/2019 URINECAOX None 07/29/2019 URINECAST 0 07/29/2019 URINEGRANCAS 0 07/29/2019 URINEHYALINE 0 07/29/2019 URINEMUCOUS None 07/29/2019 URINEEPITH None 07/29/2019 URINEREDCELL 5 07/29/2019 URINESQEPI None 07/29/2019 URINEPO4 None 07/29/2019 URINEWBC 1 07/29/2019 URINEYEAST None 07/29/2019 aBenja brannon MD - 07/30/2019 6:51 AM PDT Inpatient Nephrology Consult Note Identification: Patient name: Doug Lawson : 1965 Date of service: 07/30/2019 Impression and Recommendations: Doug Lawson is a 54 y.o. male with hx of EtOH cirrhosis c/b PSE on lactulose, spur cell anemia receiving chronic transfusion therapy, SVT. He has had decreased serum bicarbo amauri over the last 2 days, and we are consulted for ? Of metabolic acidosis. Metabolic acidosis, NAGMA - bicarb improving this morning, renal function improving. 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 This was p erformed in the setting of recovering acute kidney injury and most likely represents poor fu nction during recovery. The significance of this is marginal in setting of improving renal function. - Combined with his history of GI losses due to lactulose, he likely also likely has compo nent of bicarbonate wasting from gut as well, which is likely contributing. - No further workup would be needed at this time, and we would not recommend bicarbonate re placement for this mild acidosis. Nephrology will sign off at this time, please do not hesitate to call us back if the situat ion changes, or if other questions arise in the future. Patient was seen and staffed with my supervising attending Dr. Muller, who agrees with e assessment and plan unless otherwise noted. Benja Gant MD Pager # [phone] History of present illness: Reason for consult: Metabolic Acidosis Requesting provider: eDs Gamez MD Doug Lawson is a 54 y.o. male w hx of spur cell anemia c/b chronic iron overload, Laennec's cirrhosis w/ Ascites and PSE, admitted for liver failure awaiting transplantation. Hospital course so far complicated by encephalopathy being managed by lactulose / rifaxami n, as well as SVT which was managed with amiodarone initiation, followed by cardiology. Over the last few days, he has had a decreased CO2 on BMPs, which has not been the case for him previously. He had urine electrolytes measured which showed urine Na 7, K 20, Cl 11. PH is 7.30, pCO2 39. Of note, he had acute kidney injury with peak Creat 1,98 which is currently resolving He has not had a history of metabolic acidosis in the past. His urine pH is 5,0 Review of systems: Constitutional: negative ENT: negative Cardiovascular: negative Respiratory: negative Gastrointestinal: negative Genitourinary: + for cirrhosis Musculoskeletal: negative Integumentary: Icterus/jaundice Neurologic: negative Psychologic: negative Hematologic: negative Physical exam: Last 24 hour min/max Temp: 37 C (98.6 F) Temp Min: 36.4 C (97.5 F) Max: 37 C (98.6 F) Pulse: 64 Pulse Min: 64 Max: 70 Resp: 15 Resp Min: 15 Max: 18 BP: 90/68 BP Min: 90/68 Max: 118/52 SpO2: 99 % SpO2 Min: 99 % Max: 100 % Body mass index is 25.1 kg/m. Intake/Output Summary (Last 24 hours) at 07/30/2019 0651 Last data filed at 07/30/2019 0600 Gross per 24 hour Intake 470 ml Output 1850 ml Net -1380 ml Constitutional: NAD, malnourished. ENT: + scleral icterus. Cardiovascular: Rhythm Mildly tachy, regular. Normal S1 and S2. No murmurs, rubs or gallop s. Respiratory: clear to auscultation Abdomen: soft NT mildly distended Musculoskeletal: Warm and well perfused. No cyanosis. 2-3+ edema. Neurologic: slow to answer questions, but oriented. No tremor or asterixis. Skin: jaundiced Psychiatric: Appropriate mood and affect. Past medical history: All medical, surgical, family, and social histories were personally reviewed. Past Medical History: Diagnosis Date Cirrhosis (HCC) CKD (chronic kidney disease) Past surgical history: Past Surgical History: Procedure Laterality Date LEG SURGERY Social history: Social History Socioeconomic History Marital status: Single [...] Smokeless tobacco: Former User Types: Chew Substance and Sexual Activity Alcohol use: No Frequency: Never Drug use: No Sexual activity: Not on file Lifestyle Physical activity: Days per week: Not on file Minutes per session: Not on file Stress: Not on file Relationships Social connections: Talks on phone: Not on file Gets together: Not on file Attends mormon service: Not on file Active member of club or organization: Not on file Attends meetings of clubs or organizations: Not on file Relationship status: Not on file Other Topics Concern Not on file Social History Narrative Not on file Family history: Family History Problem Relation Liver cancer Neg Hx Allergies: Allergies Allergen Reactions Doxycycline Hives and Rash Medications: Prior to Admission Medications Prescriptions deferiprone 500 mg oral tablet Sig: Take 4 tablets (2,000mg) by mouth three times daily. Patient not taking: Reported on 07/06/2019 furosemide 20 mg oral tablet Sig: Take 2 tablets by mouth two times daily. lactulose 10 gram/15 mL oral solution Sig: Take 15 mL by mouth two times daily. metoprolol succinate 50 mg oral tablet extended release 24 hr Sig: Take 0.5 tablets by mouth once daily. spironolactone 100 mg oral tablet Sig: Take 1 tablet by mouth once daily. Facility-Administered Medications: None Medications Scheduled Medication Dose/Rate, Route, Frequency Last Action amiodarone (CORDARONE) tablet 200 mg 200 mg, oral, DAILY Given: 07/29 803 deferiprone tab 2,000 mg 2,000 mg, oral, TID Given: 07/29 2132 insulin lispro (HUMALOG) injection 1-16 Units 1 Units, subQ, QID Given: 07/29 2132 insulin lispro (HUMALOG) injection 10 Units 10 Units, subQ, TID W/MEALS Given: 07/29 1835 insulin NPH (HUMULIN N) injection 20 Units 20 Units, subQ, BEFORE BREAKFAST AND HS Given: 07/29 2133 lactulose (ENULAC) 30 g 30 g, oral, TID Given: 07/29 2132 metoprolol tartrate (LOPRESSOR) tablet 6.25 mg 6.25 mg, oral, BID Given: 07/29 2131 midodrine (PROAMITINE) tablet 10 mg 10 mg, oral, TID Given: 07/29 2132 rifAXIMin (XIFAXAN) tablet 550 mg 550 mg, oral, BID Given: 07/29 2131 zinc sulfate (ORAZINC, ZINC-220) capsule 50 mg elemental 50 mg elemental, oral, DAILY Give n: 07/29 817 PRN Medication Dose/Rate, Route, Frequency Last Action dextrose 50 % in water IV 25 mL 25 mL, IV, PRN Ordered diclofenac (VOLTAREN) 1 % gel 4 g 4 g, top, QID PRN Given: 07/23 931 glucagon (GLUCAGEN) injection 1 mg 1 mg, IM, PRN Ordered glucose chewable tablet 16 g 16 g, oral, PRN Ordered lactulose (ENULAC) 10 g 10 g, oral, Q2H PRN Given: 07/28 401 melatonin tablet 3 mg 3 mg, oral, HS PRN Ordered polyethylene glycol (MIRALAX) packet 8.5 g 8.5 g, oral, DAILY PRN Ordered Laboratory and imaging studies: All blood, urine, radiographic, and other diagnostic test results noted below were personal ly reviewed. Recent Labs 07/18/19 0858 07/21/19 0344 07/28/19 2250 07/29/1953607/30/19 05 WBC 8.19 < > 3.80 < > 5.85 5.54 3.94 HB 7.8* < > 7.4* < > 8.5* 8.0* 6.8* HCT 21.9* < > 21.3* < > 24.5* 23.9* 19.9* PLT 34* < > 25* < > 31* 28* 27* NEUTROPERC 79.8* -- 58.7 -- 72.5* -- -- LYMPHPERC 9.4* -- 28.4 -- 19.0 -- -- MONOPERC 7.1 -- 8.7 -- 5.8 -- -- BASOPERC 0.4 -- 0.5 -- 0.3 -- -- EOSPERC 1.6 -- 3.2* -- 1.9 -- -- < > = values in this interval not displayed. Recent Labs 07/28/1933707/29/1953607/30/19522 NA 140 134* 131* K 4.6 4.6 4.3 CL 110* 107 104 BICARB 17* 17* 19* BUN 37* 37* 39* CR 1.09 1.04 1.05 Recent Labs 07/18/1958 07/19/19 0013 07/21/19 0344 07/22/19 0529 07/26/19 0436 07/28/1933707/29/1953607/30/19 05 CA 8.9 8.8 < > 9.1 8.9 < > 9.2 < > 8.6 8.8 8.7 ALB -- -- -- 3.7 -- < > 3.1* < > 3.0* 3.2* 2.9* MG 1.7 2.7* < > 1.9 1.8 -- 1.5* -- -- -- -- PO4 2.3* 3.0 -- 3.1 -- -- -- -- -- -- -- < > = values in this interval not displayed. No results found for: PTH Lab Results Component Value Date LIEK87RZUXES 19.9 04/21/2019 Lab Results Component Value Date IRON 204 (H) 04/21/2019 IRONBINDCAP 194 (L) 04/21/2019 SATTRANSFERR 105 (H) 04/21/2019 FERRITIN 4,124 (H) 04/21/2019 Lab Results Component Value Date URINECOLOR Red 07/29/2019 URAPPEARANCE Clear 07/29/2019 URINEPROTEIN Negative 05/20/2019 URINEPH 5.5 05/20/2019 URSPECGRAV 1.010 05/20/2019 URINEGLUCOSE Negative 05/20/2019 Lab Results Component Value Date URINEAMPPHOS None 07/29/2019 URINEBACTERI None 07/29/2019 URINECAOX None 07/29/2019 URINECAST 0 07/29/2019 URINEGRANCAS 0 07/29/2019 URINEHYALINE 0 07/29/2019 URINEMUCOUS None 07/29/2019 URINEEPITH None 07/29/2019 URINEREDCELL 5 07/29/2019 URINESQEPI None 07/29/2019 URINEPO4 None 07/29/2019 URINEWBC 1 07/29/2019 URINEYEAST None 07/29/2019 Renal ultrasound: No results found. Associated attestation - Cristino Muller MD - 07/30/2019 6:27 PM PDTI performed a histor y and physical examination of the patient and discussed his management with the resident on 07/30/2019. I reviewed the resident s note and agree with the documented findings and ezequiel n of care. Clarification the +anion gap is suggestive of type I or IV RTA. 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 MD Cristino Batres MD [address] [place] [address] Lakshmi Chatterjee RN - 07/28/2019 11:31 AM PDTAssociated Order(s): IP CONSULT TO ADULT DIABETES EDUCATIONDiabetes Education Note Received consult request for new diagnosis DM. Patient not appropriate for education at t his time due to ongoing confusion and disorientation. Will defer teaching until patient in learning condition. Lakshmi Chatterjee RN, BSN Diabetes Nurse Specialist Adult Inpatient Diabetes Education & Support Services Pager: [phone] Beti Ruiz PA-C - 01/2019 10:13 AM PDT EP Initial Consult Note Date of Service: 07/24/19 Reason for consult: SVT/atrial arrhythmia management Consult requested by: cardiology HPI: Doug Lawson is a 54 y.o. male with a past medical history significant for ESLD 2/2 alcoholic cirrhosis and hepatitis with associated ascites, LE edema, spur cell anemia, seco ndary to iron overload who was transferred to [facility] on 07/18 for AMS, hyperglycemia, renal ins ufficiency, and right knee trauma after a fall. The patient was admitted to the MICU after h e was found to be in unstable atrial fibrillation with RVR (VR's 180's). EP was consulted af ter he has had several episodes of SVT and atrial fibrillation. The cardiology service has been seeing the patient since he arrived in the MICU. The first time the patient had SVT it converted back to sinus spontaneously. About 45 mins later he carver d another episodes with did not break with adenosine pushes of 6 mg, 12 mg which after revie wing the rhythm strip was thought to be AF. The patient was started on amiodarone 150 mg wilfredo us and a drip @ 1 for 24 hours and now is on amiodarone 400 mg TID (started 07/20 so at least a 4.8 gm load at this time). He was also restarted back on his metoprolol 6.25 mg q6h. Unfo rtunately the metoprolol was discontinued on 07/20 and on 07/23 he had more SVT episodes. Past Medical History: Past Medical History: Diagnosis Date Cirrhosis (HCC) CKD (chronic kidney disease) Past Surgical History: Past Surgical History Procedure Laterality Date Leg surgery Medications: Current Facility-Administered Medications: [START ON 07/27/2019] amiodarone (CORDARONE) tabl et 200 mg, 200 mg, oral, DAILY, Satya Teresa MD amiodarone (CORDARONE) tablet 400 mg, 400 mg, oral, TID, Rogelio Cooper MD, 400 mg at 02/06 0922 deferiprone tab 2,000 mg, 2,000 mg, oral, TID, Des Gamez MD, 2,000 mg at 07/24/19 1008 dextrose 50 % in water IV 25 mL, 25 mL, intravenous, PRN, Satya Teresa MD diclofenac (VOLTAREN) 1 % gel 4 g, 4 g, topical, QID PRN, Satya Teresa MD, 4 g at 07/23 0931 glucagon (GLUCAGEN) injection 1 mg, 1 mg, intramuscular, PRN, Satya Teresa MD glucose chewable tablet 16 g, 16 g, oral, PRN, Satya Teresa MD insulin lispro (HUMALOG) injection 1-16 Units, 1-16 Units, subcutaneous, QID, Satya moore MD, 2 Units at 07/24/19 0740 insulin lispro (HUMALOG) injection 14 Units, 14 Units, subcutaneous, TID W/MEALS, Satya Teresa MD, 14 Units at 07/24/19 0741 insulin NPH (HUMULIN N) injection 20 Units, 20 Units, subcutaneous, BEFORE BREAKFAST AND HS , Satya Teresa MD, 20 Units at 07/24/19 0741 lactulose (ENULAC) 10 g, 15 mL, oral, Q2H PRN, Satya Teresa MD, 10 g at 07/23/19 1815 lactulose (ENULAC) 30 g, 45 mL, oral, TID, Jovany Mckinley MD, 30 g at 07/24/19 0921 melatonin tablet 3 mg, 3 mg, oral, HS PRN, Rojas Joy MD metoprolol tartrate (LOPRESSOR) tablet 6.25 mg, 6.25 mg, oral, BID, Rojas Joy MD, 6.25 mg at 07/24/19 09 midodrine (PROAMITINE) tablet 15 mg, 15 mg, oral, TID, Rogelio Cooper MD, 15 mg at 1008 octreotide (SANDOSTATIN) injection 200 mcg, 200 mcg, subcutaneous, TID, Antione Talbot MD, 200 mc g at 07/24/19 0921 rifAXIMin (XIFAXAN) tablet 550 mg, 550 mg, oral, BID, Satya Teresa MD, 550 mg at 0921 Allergies: Allergies Allergen Reactions Doxycycline Hives and Rash Social History: History Social History Marital Status: Single Spouse Name: Number of Children: Years of Education: Occupational History Social History Main Topics Tobacco Use: Quit Quit date: 04/20/2019 Types: Chew Alcohol Use: No Drug Use: No Sexually Active: Other Topics Concern Social History Narrative Family Medical History: Family History Problem Relation Liver cancer Neg Hx Review of Systems: Apart from the symptoms stated above, comprehensive ROS was negative. PHYSICAL EXAM: Vital signs: Last Vitals: BP 108/50 (BP Location: Left upper arm, Patient Position: Lying on back) | Pu lse 62 | Temp 36.8 C (98.2 F) (Oral) | Resp 16 | Ht 1.803 m (5' 11") | Wt 81.6 kg (1 80 lb) | SpO2 100% | BMI 25.10 kg/m | BSA 2.02 m 24 Hour Vital Min/Max: Systolic (24hrs), Av , Min:95 , Max:121 Diastolic (24hrs), Av, Min:50, Max:75 Pulse Min: 59 Max: 127 Temp Min: 36.2 C (97.2 F) Max: 36.8 C (98.2 F) Resp Min: 16 Max: 20 SpO2 Min: 96 % Max: 100 % Intake/Output Summary (Last 24 hours) at 07/24/2019 1013 Last data filed at 07/24/2019 0926 Gross per 24 hour Intake 2170 ml Output 1500 ml Net 670 ml Labs: Lab Results Component Value Date NA 137 07/24/2019 K 4.0 07/24/2019 CL 106 07/24/2019 BICARB 23 07/24/2019 BUN 34 07/24/2019 CR 1.08 07/24/2019 GLU 150 07/24/2019 CA 9.5 07/24/2019 AST 86 07/24/2019 ALT 43 07/24/2019 AP 123 07/24/2019 TBILI 16.9 07/24/2019 TP 6.7 07/24/2019 ALB 3.4 07/24/2019 DIRBILI 4.0 02/12/2019 Lab Results Component Value Date MG 1.8 07/22/2019 Lab Results Component Value Date WBC 7.03 07/24/2019 HB 9.3 07/24/2019 HCT 27.3 07/24/2019 PLT 46 07/24/2019 MCV 102.6 07/24/2019 RDW 54.7 07/24/2019 Lab Results Component Value Date INRPT 3.49 (H) 07/24/2019 EK07/23/19: SVT, RBBB, HR 150 bpm 07/20/19: AF with IVCD, VR 71 bpm 07/20/19: SVT HR 140 bpm 07/18/19: SVT HR 158 bpm 07/18/19: AF, RBBB HR 185 bpm 07/18/19: sinus rhythm HR 93 bpm, RBBB 04/21/19: SVT HR 160 bpm Tele: Sinus rhythm HR 50-60's Echo: 07/18/19: Transthoracic Echocardiographic Report + + Final Impressions: 1. The left ventricular size is normal. 2. The LV function is normal. 3. The aortic valve is trileaflet and moderately calcified. Mildly elevated aortic valve gradients in the setting of high stroke volume. Calculated aortic valve area is normal tod ay. 4. RV cavity size is mildly enlarged. RV wall thickness is normal. RV global systolic fun ction is normal. The estimated right ventricular systolic pressure is mildly elevated (RVSP = 40.9 mmHg). 5. Compared to the most recent exam dated 04/21/2019, there are no significant changes. + + Impression and Plan: Doug Lawson is a 54 y.o. male with a past medical history significant for ESLD 2/2 alcoholic cirrhosis and hepatitis with associated ascites, LE edema, spur cell anemia, seco ndary to iron overload who was transferred to [facility] on 07/18 for AMS, hyperglycemia, renal ins ufficiency, and right knee trauma after a fall. The patient was admitted to the MICU after h e was found to be in unstable atrial fibrillation with RVR (VR's 180's). EP was consulted af ter he has had several episodes of SVT and atrial fibrillation. The patient's history, diagnostic findings and recent events were reviewed with Dr. Mcintyre. EKG's reviewed show sinus rhythm, atrial fibrillation with RVR, and SVT (difficult to disce rn p-waves). We would recommend finishing the 10 gm load of amiodarone and to try to put the patient on the maximally tolerated dose of metoprolol. If the patient is still having recur rent arrhythmias once amiodarone has been loaded, then we could consider an electrophysiolog y study +/- ablation. Beti Henry PA-C 07/24/19 Associated attestation - Beatrice Mcintyre MD - 07/25/2019 9:54 AM PDTElectrophysiology Attend ing I have seen and examined Mr. Lawson and discussed the patient's management with GUMARO Loja. I reviewed her note above and agree with the documented findings and plan of care. Atrial arrhythmias, mostly AT versus flutter. AF also observed. Anticipate will improve with amiodarone load/maintenance, and metoprolol. If not medically controlled, ablation is possible, but not a first choice given illness, co agulopathy, thrombocytopenia. Mike Montez MD - 07/23/2019 2:53 PM PDTFormatting of this note might be different from t nicolasa original. CARDIOLOGY CONSULT SERVICE PROGRESS NOTE Hospital Day:6 Interval Events/Subjective: -Recurrence of tachycardia Current Cardiac Medications Amiodarone 400mg TID Metoprolol held since 07/20 See MAR for complete list Current medications: Current Facility-Administered Medications Medication Dose Route Frequency [START ON 07/27/2019] amiodarone (CORDARONE) tablet 200 mg 200 mg oral DAILY amiodarone (CORDARONE) tablet 400 mg 400 mg oral TID deferiprone tab 2,000 mg 2,000 mg oral TID dextrose 50 % in water IV 25 mL 25 mL intravenous PRN diclofenac (VOLTAREN) 1 % gel 4 g 4 g topical QID PRN glucagon (GLUCAGEN) injection 1 mg 1 mg intramuscular PRN glucose chewable tablet 16 g 16 g oral PRN insulin lispro (HUMALOG) injection 1-16 Units 1-16 Units subcutaneous QID insulin lispro (HUMALOG) injection 14 Units 14 Units subcutaneous TID W/MEALS insulin NPH (HUMULIN N) injection 20 Units 20 Units subcutaneous BEFORE BREAKFAST AND HS lactulose (ENULAC) 10 g 15 mL oral Q2H PRN lactulose (ENULAC) 30 g 45 mL oral TID metoprolol tartrate (LOPRESSOR) tablet 6.25 mg 6.25 mg oral BID midodrine (PROAMITINE) tablet 15 mg 15 mg oral TID octreotide (SANDOSTATIN) injection 200 mcg 200 mcg subcutaneous TID rifAXIMin (XIFAXAN) tablet 550 mg 550 mg oral BID Physical Exam: Last 24 hour min/max Temp: 36.7 C (98.1 F) Temp Min: 36.5 C (97.7 F) Max: 36.7 C (98.1 F) Pulse: 65 Pulse Min: 54 Max: 153 Resp: 16 Resp Min: 16 Max: 18 BP: 117/62 BP Min: 95/59 Max: 118/60 SpO2: 99 % SpO2 Min: 96 % Max: 100 % Body mass index is 25.1 kg/m. Intake/Output Summary (Last 24 hours) at 07/23/2019 1453 Last data filed at 07/23/2019 1400 Gross per 24 hour Intake 260 ml Output 1150 ml Net -890 ml General Appearance: thin male in no distress, ill appearing HEENT: NC/AT, neck supple, mm moist, scleral icterum Respiratory: Clear to auscultation without wheezes, rales, rhonchi Cardiovascular: RRR, S1S2, no mrg's, JVP ~7cm Gastrointestinal: Soft, non distended, non tender, normal bowel sounds Extremities: warm, peripheral pulses palpable, trace edema Lab: Chemistries: Last 72 Hours (or 3 results): Recent Labs 07/21/19 0344 07/22/19 0529 07/23/19 0611 07/23/19 0801 07/23/19 1326 NA 131* -- 133* -- 135* -- -- K 3.6 -- 3.7 -- 3.9 -- -- CL 98 -- 102 -- 105 -- -- BICARB 24 -- 24 -- 23 -- -- BUN 39* -- 38* -- 41* -- -- CR 1.75* -- 1.56* -- 1.28 -- -- GLU 175* < > 221* < > 164* 177* 153* CA 9.1 -- 8.9 -- 9.5 -- -- MG 1.9 -- 1.8 -- -- -- -- PO4 3.1 -- -- -- -- -- -- < > = values in this interval not displayed. CBC with diff last 72 hours (or 3 results) Recent Labs 07/21/1934307/21/19 1643 07/22/19 0529 07/23/19 0611 WBC 3.80 5.29 4.77 6.19 HB 7.4* 8.5* 8.0* 8.9* HCT 21.3* 24.1* 22.9* 25.6* PLT 25* 27* 28* 38* NEUTROPERC 58.7 -- -- -- LYMPHPERC 28.4 -- -- -- MONOPERC 8.7 -- -- -- BASOPERC 0.5 -- -- -- EOSPERC 3.2* -- -- -- Liver tests Recent Labs 07/18/19 0509 07/21/19 03407/23/19 0611 AST 66* 81* 93* ALT 45 37 46 TBILI 13.6* 12.3* 13.9* AP 112 78 138* ALB 2.7* 3.7 3.4* TP 6.6 6.6 6.8 Lab Results Component Value Date INRPT 4.11 (H) 07/23/2019 Lab Results Component Value Date TROPONIN 0.12 07/20/2019 TROPONIN 0.11 07/19/2019 TROPONIN 0.12 07/18/2019 EC07/23/19: sinus rhythm vs ectopic atrial tachycardia with HR 150s Telemetry: -Prior to today the last episode of arrhythmia noted to have occurred on 07/20/19. -At baseline sinus rates in the 60-80s, but episodes of sudden onset wide complex tachycard ia with morphology similar to his baseline RBBB. -Episode of 5 beat NSVT this morning -Recurrent episodes of SVT spanning approx 1.5 hrs. One episode initiated by a PAC raising suspicion for re-entrant rhythms, but long RP tahycardia in other places raise suspicion for atrial tachycardic. Assessment and Recommendations: Doug Lawson is a 54 y.o.Mwith PMHEtOH cirrhosis and history of alcoholic hep atitis 06/2018 c/b ascites and HRS type 2, spur cell anemia, secondary iron overload (liver, heart), who presented with atrial arrhythmias/SVT (atrial tachycardia vs re-entrant narrow complex SVT and atrial fibrillation). CHADS-VASc =0. He was free of SVT between 07/20 and the morning of 07/23. He has continued on amiodarone oral load but metoprolol has been held sinc e 07/20. Responded well to 3 doses of IV metoprolol. Episode of similar SVT on past dobutamin e stress echo thus likely has predisposition. Etiology likely related to secondary iron depo sition in myocardium noted on MRI. Findings on telemetry suggest multiple atrial arrhythmias . Atrial arrhythmias tend not to be an absolute contraindication to transplant, but they are likely to complicate his post-operative management. The burden should be lower once he is l oaded with amiodarone and on maintenance Metoprolol. --Complete 10g load of amiodarone then switch to 200mg daily --Resume oral metoprolol 6.25mg q6h as tolerated --If hypotension limits beta orion use then the alternative would be a short course of di goxin (load with 0.25mg q6 x 4 then 0.125mg daily if needed) Dr. Canada saw and evaluated this patient and agrees with my assessment and plan as documen jeannette above. Sharla Montez MD Cardiovascular Medicine Fellow [facility] Cardi[facility] [place] [facility] and [facility], [place] Associated attestation - Luis Fernando Canada MD - 07/24/2019 7:37 AM PDTATTENDING NOTE: I saw and evaluated Mr. Lawson with Dr. Montez. Management discussed in detail. I agree with the findings, assessment and plan of care as per Dr. Montez's note. Luis Fernando Canada MD Cardiology Mike Montez MD - 07/20/2019 9:13 AM PDTFormatting of this note might be different from t he original. CARDIOLOGY CONSULT SERVICE PROGRESS NOTE Hospital Day:3 Interval Events/Subjective: -Got amiodarone 150mg IV x 1 then completed 24 hrs of gtt then d/c -Metoprolol resumed at home dose - metoprolol 6.25mg q6h -Lower BP trend with episodes of SVT - MAPs 60-70s -Amiodarone bolus given again and gtt resumed -Denies palpitations or chest pain Current Cardiac Medications Amiodarone 150mg IV Amiodarone gtt Metoprolol 6.25mg q6h (got 12.5mg yesterday) See DEC for complete list Current medications: Current Facility-Administered Medications Medication Dose Route Frequency albumin human (BUMINATE, FLEXBUMIN) 25 % injection 75 g 75 g intravenous Q24H amiodarone (CORDARONE) 900 mg in dextrose 5 % 500 mL (1.8 mg/mL) IV infusion 0.5-1 mg/ min intravenous CONTINUOUS deferiprone tab 2,000 mg 2,000 mg oral TID dextrose 50 % in water IV 25 mL 25 mL intravenous PRN diclofenac (VOLTAREN) 1 % gel 4 g 4 g topical QID PRN glucagon (GLUCAGEN) injection 1 mg 1 mg intramuscular PRN glucose chewable tablet 16 g 16 g oral PRN insulin lispro (HUMALOG) injection 1-16 Units 1-16 Units subcutaneous QID insulin lispro (HUMALOG) injection 10 Units 10 Units subcutaneous TID W/MEALS insulin NPH (HUMULIN N) injection 18 Units 18 Units subcutaneous BEFORE BREAKFAST AND HS lactulose (ENULAC) 10 g 15 mL oral Q2H PRN lactulose (ENULAC) 30 g 45 mL oral TID metoprolol tartrate (LOPRESSOR) tablet 6.25 mg 6.25 mg oral Q6H piperacillin-tazobactam (ZOSYN) IV (minibag+) 3.375 g 3.375 g intravenous Q8H potassium chloride SR (K-DUR) tablet 20 mEq 20 mEq oral ONCE propofol (DIPRIVAN) injection rifAXIMin (XIFAXAN) tablet 550 mg 550 mg oral BID Physical Exam: Last 24 hour min/max Temp: 36.7 C (98.1 F) Temp Min: 36.7 C (98.1 F) Max: 37.1 C (98.7 F) Pulse: 73 Pulse Min: 69 Max: 145 Resp: 16 Resp Min: 13 Max: 22 BP: 104/57 BP Min: 77/40 Max: 115/96 SpO2: 97 % SpO2 Min: 91 % Max: 100 % Body mass index is 25.1 kg/m. Intake/Output Summary (Last 24 hours) at 07/20/2019 09 Last data filed at 07/20/2019 0912 Gross per 24 hour Intake 2768.24 ml Output 500 ml Net 2268.24 ml General Appearance: thin male in no distress, ill appearing HEENT: NC/AT, neck supple, mm moist, scleral icterum Respiratory: Clear to auscultation without wheezes, rales, rhonchi Cardiovascular: RRR, S1S2, no mrg's, JVP ~7cm Gastrointestinal: Soft, non distended, non tender, normal bowel sounds Extremities: warm, peripheral pulses palpable, trace edema Lab: Chemistries: Last 72 Hours (or 3 results): Recent Labs 07/17/19200107/18/19 0858 07/19/19 0013 07/19/19 1356 07/19/19202107/19/19 2133 07/20/19 0524 NA -- < > 136 -- 137 -- 135* -- 134* -- 131* K -- < > 4.0 -- 4.0 -- 4.2 -- 4.1 -- 3.8 CL -- < > 101 -- 103 -- 100 -- 100 -- 99 BICARB -- < > 30 -- 27 -- 28 -- 23 -- 26 BUN -- < > 42* -- 36* -- 36* -- 35* -- 35* CR -- < > 1.20 -- 1.21 -- 1.59* -- 1.62* -- 1.60* GLU -- < > 154* < > 126* < > 129* < > 271* 241* 273* CA -- < > 8.9 -- 8.8 -- 8.9 -- 8.7 -- 8.4* MG 1.8 -- 1.7 -- 2.7* -- 2.1 -- -- -- 2.1 PO4 3.1 -- 2.3* -- 3.0 -- -- -- -- -- -- < > = values in this interval not displayed. CBC with diff last 72 hours (or 3 results) Recent Labs 07/17/19195207/18/19 05007/18/19 0858 07/19/19 0552 07/19/19 1356 07/20/19 0524 WBC 6.47 7.11 8.19 < > 7.00 5.73 4.74 HB 8.8* 9.2* 7.8* < > 7.6* 6.5* 5.7* HCT 25.0* 25.7* 21.9* < > 21.3* 18.5* 16.7* PLT 33* 35* 34* < > 37* 31* 26* NEUTROPERC 75.0* 76.6* 79.8* -- -- -- -- LYMPHPERC 14.8* 12.9* 9.4* -- -- -- -- MONOPERC 7.7 8.6 7.1 -- -- -- -- BASOPERC 0.3 0.4 0.4 -- -- -- -- EOSPERC 1.7 1.1 1.6 -- -- -- -- < > = values in this interval not displayed. Liver tests Recent Labs 04/24/1942007/16/19 07/17/19200507/18/19508 AST 69* < > 66* 64* 66* ALT 40 < > 45 40 45 TBILI 9.9* < > 15.0* 13.4* 13.6* AP 151* < > 157* 124 112 ALB 2.5* < > 3.3* 2.7* 2.7* TP 6.7 -- -- 6.8 6.6 < > = values in this interval not displayed. Lab Results Component Value Date INRPT 3.42 (H) 07/18/2019 Lab Results Component Value Date TROPONIN 0.12 07/20/2019 TROPONIN 0.11 07/19/2019 TROPONIN 0.12 07/18/2019 EC/30/: 8am: atrial fibrillation VR 71, RBBB, 07/20, 12:30 am: regular narrow complex tachycardia RBBB, retrograde p waves in I and III Telemetry: regular narrow complex tachycardia, with HR 130s. Abrupt onsent, started afetr P AC . Longest episode from midnight to 5am. Other episodes of 30 and 60 minutes. Episode of N SVT with rates from 100-110 - 7 beats. Episode of similar day prior. Episode captured on ECG . Assessment and Recommendations: Doug Lawson is a 54 y.o. M with PMH EtOH cirrhosis and history of alcoholic hepati tis 06/2018 c/b ascites and HRS type 2, spur cell anemia, secondary iron overload (liver, he art), who presented with atrial arrhythmias/SVT (atrial tachycardia vs re-entrant narrow com plex SVT and atrial fibrillation). CHADS-VASc =0. Arrhythmia was controlled with amiodarone infusion and recurred with discontinuation. Amiodarone since resumed. Episode of similar on past dobutamine stress echo thus likely has predisposition. Etiology likely related to seco ndary iron deposition in myocardium noted on MRI. Atrial arrhythmias to be an absolute cont raindication to transplant, but they are likely to complicate his post-operative management. The burden should be lower once he is loaded with amiodarone. --Complete 10g load of amiodarone --Full baseline thyroid panel since TSH was low --Metoprolol 6.25mg q6h as BP allows --If hypotension limits beta orion use then the alternative would be a short course of di goxin Dr. Canada saw and evaluated this patient and agrees with my assessment and plan as docum ented above. Sharla Montez MD Cardiovascular Medicine Fellow [facility] Cardi[facility] [place] [facility], [place] Associated attestation - Luis Fernando Canada MD - 07/21/2019 6:40 AM PDTATTENDING NOTE: I saw and evaluated Mr. Lawson with Dr. Montez. Management discussed in detail. I agree with the findings, assessment and plan of care as per Dr. Montez's note. Luis Fernando Canada MD Cardiology Jenifer Kelly MD - 07/20/2019 8:20 AM PDT INPATIENT INFECTIOUS DISEASE PROGRESS NOTE ID TEAM: Transplant Reason for Consult: Evaluate for infection Interval Events: Recurrent SVT this morning and restarted amio gtt at 7am. Denies and fevers or chills. Repo rts discomfort in his R knee and asked to remove SCDs. Physical exam: Last Vitals: BP 93/63 | Pulse 73 | Temp 36.9 C (98.4 F) (Oral) | Resp 16 | Ht 1.803 m (5' 11") | Wt 81.6 kg (180 lb) | SpO2 99% | BMI 25.10 kg/m | BSA 2.02 m 24 Hour Vital Min/Max: Systolic (24hrs), Av , Min:77 , Max:115 Diastolic (24hrs), Av, Min:39, Max:96 General: NAD, sitting up in chair HEENT: icteric sclera Respiratory: Normal respiratory effort; clear to auscultation anteriorly Cardiovascular: Regular Rhythm, normal rate; no murmurs GI: Soft,nontender, non-distended; normal bowel sounds. Extremities: 3+ PE bilaterally, significant ecchymoses involving R knee and LE Skin: jaundiced, ecchymoses Neuro: Alert, no focal neurological deficits Lines: peripherals Antimicrobial Medications Antimicrobials Start Date Stop Date Comments: Vancomycin 07/18 07/18 Pip-tazo 07/17 P Microbiology Data: Source Date Results Bcx 07/17 NGTD R knee synovial fluid 07/18 GS: no organisms (no culture sent) Laboratory Data: WBC 4.7 Cr 1.62 New Imaging Since Last ID Note: None Medications: Current Facility-Administered Medications Medication Dose Route Frequency albumin human (BUMINATE, FLEXBUMIN) 25 % injection 75 g 75 g intravenous Q24H amiodarone (CORDARONE) 900 mg in dextrose 5 % 500 mL (1.8 mg/mL) IV infusion 0.5-1 mg/ min intravenous CONTINUOUS deferiprone tab 2,000 mg 2,000 mg oral TID dextrose 50 % in water IV 25 mL 25 mL intravenous PRN diclofenac (VOLTAREN) 1 % gel 4 g 4 g topical QID PRN glucagon (GLUCAGEN) injection 1 mg 1 mg intramuscular PRN glucose chewable tablet 16 g 16 g oral PRN insulin lispro (HUMALOG) injection 1-16 Units 1-16 Units subcutaneous QID insulin lispro (HUMALOG) injection 10 Units 10 Units subcutaneous TID W/MEALS insulin NPH (HUMULIN N) injection 18 Units 18 Units subcutaneous BEFORE BREAKFAST AND HS lactulose (ENULAC) 10 g 15 mL oral Q2H PRN lactulose (ENULAC) 30 g 45 mL oral TID metoprolol tartrate (LOPRESSOR) tablet 6.25 mg 6.25 mg oral Q6H piperacillin-tazobactam (ZOSYN) IV (minibag+) 3.375 g 3.375 g intravenous Q8H potassium chloride SR (K-DUR) tablet 20 mEq 20 mEq oral ONCE propofol (DIPRIVAN) injection rifAXIMin (XIFAXAN) tablet 550 mg 550 mg oral BID Assessment: #SVT with concern for infectious process: No evidence of infectious process with negative b lood cultures from 07/17. No fevers, leukocytosis, or localizing symptoms pointing towards an infectious process. Recommend discontinuing pip-tazo and monitoring off of antibiotics. #Etoh cirrhosis on liver transplant list #Spur cell anemia: Hb 5.7 today and is s/p 2u PRBCs. #CKD Recommendations: - Discontinue pip-tazo today - TID will sign off. Please reach out with any questions. Recommendations were communicated directly to the primary team. This patient was staffed [facility] Dr. Can, who agrees with the above assessment and plan unless otherwise documented. Jenifer Kelly MD Pager: [phone] Associated attestation - Donna Can MD - 07/20/2019 8:58 PM PDTI saw and examined the patient with Dr. Kelly. I agree with her assessment and plan with the following comments. Recurrent SVT this morning. Infectious work-up remains negative to date. Recommend stopping pip-tazo. Follow-up cx results until finalized. No current infectious co ntraindication to transplant. Donna Can MD Infectious DiseasesSuDonna marmolejo MD - 07/19/2019 11:56 AM PDTAssociated Order(s): IP C ONSULT TO TRANSPLANT INFECTIOUS DISEASEFormatting of this note might be different from the o riginal. Reason for consult: evaluate for infection Consulted by: Dr. Rice (MICU) HPI: Mr. Lawson is a 54yo man with etoh cirrhosis and etoh hepatitis c/b ascites, transfusio n dependent spur cell anemia with secondary iron overload listed for OLT; hx of SVT during a stress echo done for pre-transplant eval; CKD; hx nephroliothiasis; remote hx of R open tib ial plateau fracture s/p I&D and percutaneous screw fixation in 1998 who was admitted as a t ransfer from [facility] after presenting there with AMS, R knee trauma due to a fall, hyp erglycemia, renal insufficiency. He reports that he had been feeling well at home without f/ c/s. He caught his foot and tripped leading to R knee trauma. He also bumped his head during the fall. Denies any recent problems with skin redness, drainage, pain at the R knee prior to the fall. He had not eaten or had much to drink due to his fall. He also denies any rece nt cough, SOB, abdominal pain, dysuria, hematuria. No current HAs. He has had loose stools s malika admission. No recent sick contacts. +dry itchy skin. No tooth aches or tooth pain. He i s currently in the MICU due to SVT then afib with RVR with low BPs. Was on amiodarone which is now off. ROS: A complete ROS was obtained and is otherwise negative except as noted above Past Medical History: Diagnosis Date Cirrhosis (HCC) CKD (chronic kidney disease) Past Surgical History Procedure Laterality Date Leg surgery Medications Continuous Medication Dose/Rate, Route, Frequency Last Action insulin regular in NaCl 0.9% IV infusion (1 unit/mL) 4.4 Units/hr, 4.4 mL/hr, IV, CONTINUO US Rate/Dose Change: 07/19 1100 Scheduled Medication Dose/Rate, Route, Frequency Last Action deferiprone tab 2,000 mg 2,000 mg, oral, TID Given: 07/19 907 lactulose (ENULAC) liquid 20 g 20 g, oral, TID Given: 07/19 907 piperacillin-tazobactam (ZOSYN) IV (minibag+) 3.375 g 0 g, 0 mL/hr, IV, Q8H Stopped: 07/19 104 rifAXIMin (XIFAXAN) tablet 550 mg 550 mg, oral, BID Given: 07/19 09 PRN Medication Dose/Rate, Route, Frequency Last Action dextrose 5%-NaCl 0.45% IV infusion 5-400 mL, IV, PRN Ordered dextrose 50 % in water IV 15-150 mL 15-150 mL, IV, PRN Ordered diclofenac (VOLTAREN) 1 % gel 4 g 4 g, top, QID PRN Ordered glucose chewable tablet 4-40 g 4-40 g, oral, PRN Ordered insulin regular bolus from continuous infusion 1-50 Units 5 Units, IV, NEEDED (BOLUS) B olus from Same Ba/28 001 lactulose (ENULAC) 10 g 15 mL, oral, Q2H PRN Ordered Allergies Allergen Reactions Doxycycline Hives and Rash History Social History Marital Status: Single Spouse Name: Number of Children: Years of Education: Occupational History Social History Main Topics Tobacco Use: Quit Quit date: 04/20/2019 Types: Chew Alcohol Use: No Drug Use: No Sexually Active: Other Topics Concern Social History Narrative Lives in [place] in [facility]. Lives alone. Remote hx of travel to [facility] during childhood. No hx of foreign travel or service. Has 2 pet dogs. No other animal contacts. No known hx of TB exposures. Family History Problem Relation Liver cancer Neg Hx Last 24 hour min/max Temp: 37.1 C (98.7 F) Temp Min: 36.6 C (97.9 F) Max: 37.1 C (98.8 F) Pulse: 76 Pulse Min: 62 Max: 133 Resp: 18 Resp Min: 11 Max: 21 BP: 77/40 BP Min: 77/40 Max: 104/79 SpO2: 98 % SpO2 Min: 91 % Max: 100 % Body mass index is 25.1 kg/m. Gen: in bed, non-toxic appearing Skin: extensive ecchymoses over R knee without drainage; dry skin throughout with scattered excoriations HEENT: PERRL, nl sclera, dry MM, op clear, poor dentition Neck: supple CV: RRR, no m/g/r Lungs/chest: CTAB, respirations nonlabored Abd: +BS, soft, nt/nd Ext: wwp, +BLE edema Neuro: grossly intact, moves all 4 extremities Mental status: awake, alert CBC with diff last 72 hours (or 3 results) - Refreshable Recent Labs 07/17/19195207/18/19 05007/18/19 0858 07/18/19 1803 07/19/19 0001 07/19/19 0552 WBC 6.47 7.11 8.19 < > 5.98 5.19 7.00 HB 8.8* 9.2* 7.8* < > 7.7* 7.2* 7.6* HCT 25.0* 25.7* 21.9* < > 22.2* 20.2* 21.3* PLT 33* 35* 34* < > 32* 32* 37* NEUTROPERC 75.0* 76.6* 79.8* -- -- -- -- LYMPHPERC 14.8* 12.9* 9.4* -- -- -- -- MONOPERC 7.7 8.6 7.1 -- -- -- -- BASOPERC 0.3 0.4 0.4 -- -- -- -- EOSPERC 1.7 1.1 1.6 -- -- -- -- < > = values in this interval not displayed. Chemistries: Last 72 Hours (or 3 results) - Refreshable Recent Labs 07/17/19200107/18/19 05007/18/19 0858 07/19/19 0013 07/19/19 0853 07/19/19 0939 07/19/19 1204 NA -- < > 136 -- 136 -- 137 -- -- -- -- K -- < > 4.1 -- 4.0 -- 4.0 -- -- -- -- CL -- < > 99 -- 101 -- 103 -- -- -- -- BICARB -- < > 29 -- 30 -- 27 -- -- -- -- BUN -- < > 46* -- 42* -- 36* -- -- -- -- EGFRAFRICAN -- < > >60 -- >60 -- >60 -- -- -- -- CR -- < > 1.23 -- 1.20 -- 1.21 -- -- -- -- GLU -- < > 173* < > 154* < > 126* < > 166* 160* 172* CA -- < > 9.3 -- 8.9 -- 8.8 -- -- -- -- MG 1.8 -- -- -- 1.7 -- 2.7* -- -- -- -- PO4 3.1 -- -- -- 2.3* -- 3.0 -- -- -- -- < > = values in this interval not displayed. Liver Tests: Last 72 hours (or 3 results) Recent Labs 07/17/19200507/18/19 0509 AST 64* 66* ALT 40 45 TBILI 13.4* 13.6* AP 124 112 ALB 2.7* 2.7* TP 6.8 6.6 BCx 07/17 NGTD UCx 07/19 pending UCx 07/17 negative R knee aspirate 07/18: Gram stain neg, fungal cx pending 330 WBCs 250k RBCs Crystals negative OSH Labs: 07/17 WBC 7.1 Cr 1.85 UA 1-2 WBCs, trace leuk esterase, neg nitrites 07/16 Cr 1.98 04/2019 HIV neg RPR neg MMR immune Strongy Ab equivocal quantiferon indeterminate Toxo Ab neg HSV 1/2 Ab + CMV Ab + EBV Ab + VZV Ab + HAV IgG +/ IgM neg HBsAg neg HBsAb neg HBcAb neg HCV Ab neg R knee XR 07/18: Soft tissue swelling about the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 knee and one scar over the anterior knee near the tibial tubercle. 2 + pitting edema to the knee Palpation: Very tender over the knee, delgadillo, ankle ROM: Very painful with passive ROM of the knee. Passively ranged to 90 deg. Patient declin ed active ROM due to knee pain. Motor: fires tibialis anterior, fires gastrocsoleus complex, fires EHL, fires FHL, fire s quads, fires hamstrings, fires hip flexors Sensory: grossly intact to light touch, medial, lateral, dorsal, 1st dorsal web space, p lantar Vascular: palpable dorsalis pedis, palpable posterior tibial, digits warm & well perfused , capillary refill < 2 seconds, DORENE not indicated Reflexes: not performed LEFT LOWER EXTREMITY: Inspection: Pitting edema up to to the knee Palpation: Mildly TTP throughout the soft tissues ROM: full P/ROM hip, knee, ankle, foot, toes Motor: fires tibialis anterior, fires gastrocsoleus complex, fires EHL, fires FHL, fire s quads, fires hamstrings, fires hip flexors Sensory: grossly intact to light touch, medial, lateral, dorsal, 1st dorsal web space, p lantar Vascular: palpable dorsalis pedis, palpable posterior tibial, digits warm & well perfused , capillary refill < 2 seconds, DORENE not indicated Reflexes: not performed LABORATORY DATA: Lab Results Component Value Date/Time NA 128 (A) 07/16/2019 K 4.5 07/16/2019 CR 1.98 (A) 07/16/2019 HCT 25.0 (L) 07/17/2019 07:53 PM HCT 30.9 (A) 07/07/2019 WBC 6.47 07/17/2019 07:53 PM WBC 6.3 07/07/2019 PLT 33 (L) 07/17/2019 07:53 PM PLT 57 (A) 07/07/2019 DIAGNOSTIC IMAGING: xrays, per my read demonstrate: no fracture. Evidence of prior surgical fixation and tibial plateau fracture. ASSESSMENT: Doug Lawson is a 54 y.o. M with the following orthopaedic injuries/concerns: R knee hemarthrosis Patient presents with R knee pain and effusion after a fall directly onto the knee 3 days a go. We were asked to evaluate for R knee septic arthritis. X-rays have been negative for fra cture, but INR is elevated to 3.4 and platelets are only 33. In the setting of recent trauma , this is more likely a hemarthrosis. There would be risk of aspiration and unclear therapeu tic benefit due to high probability of fluid reaccumulation. Additionally, patient denies fe vers or chills, and while his swelling has increased based on our discussion with the primar y team, the patient states that his pain has been stable since the incident. If a confirmed negative knee aspiration is prerequisite to transplantation, we can discuss with the primary team tomorrow morning. PLAN: Surgery: nonoperative treatment Diet: per primary team Further Imaging: no additional at this time Supervision: Plan will be discussed with Scot Mandujano MD. Follow up:Please call the clinic to make a follow up appointment in approximately 2 weeks w kristyn CHAO ([facility]), The orthopaedics consult pager is #[phone], please call with questions. Maninder Ricketts MD Resident Department of Orthopaedics Pager [phone] [facility] Department of Orthopaedics & Rehabilitation [address] [place] [address] Mail Code: OP31 [facility] [id number] documented in this e ncounter Miscellaneous Notes Plan of Care - Chan Dickens RN - 08/29/2019 5:00 PM PSTNursing Discharge Note Discharge Date: 08/29/2019 Additional Discharge Information: Mr. Donell Lawson is ready to discharge. He had a run of hemo dialysis this morning. His mother retrieved all medications from [facility] and they have been verified by unit pharmacist. His personal medications were returned to him from e in-patient pharmacy. His peripheral IV has been removed. His tunneled HD catheter is to re main in place. He has been provided several Aqua Guards along with instructions on how to ca re for his central line. The AVS has been printed and reviewed with Donell and his mother, who is to be his primary support person. They both verbalize understanding of all final discharg e teachings, including checking blood sugar and administering insulin, s/sx of hyperglycemia and hypoglycemia, reasons for calling the transplant team or coming to the ED, hygiene, act ivity restrictions, lab schedule, HD schedule, and pain control. Donell will DC to a rented house in the [place] area with his mother in a private vehicle. He will leave 4A via WC with a mask in place. 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 iron overload, afib w/ RvR on metop and amio, KAR on CKD, T 2DM, EF 55-60% (low for hyperdynamics of cirrhosis) HPI: Pt initially presented this admission to [facility] upon transfer from OSH with decompensate d cirrhosis and metabolic encephalopathy, was managed by Internal Medicine prior to OR 08/15: liver tx, allograft cholecystectomy, reperfusion liver biopsy 08/22: Dialysis cath placement at bedside, first run of dialysis SAFETY Patient/Family Target: Donell will be oriented and call appropriately, no falls Progress to Target: Improving As evidenced by: Donell has been alert and oriented, steady gait, fell prior to admit (pt has been here for 4 0+ days), independent COMFORT/ANXIETY/BEHAVIOR Patient/Family Target: Donell will have adequate pain control Progress to Target: Improving As evidenced by: Most of Donell's discomfort is from scrotal swelling. Suffered skin tear on scrotum when sit ting on the toilet. Now, gauze placed underneath scrotum and wearing underwear to support we ight of scrotum. Gave 2.5 mg oxycodone at 2330. HYGIENE/INFECTION Patient/Family Target: Donell's skin will remain intact. Progress to Target: No Change As evidenced by: - Some old drainage from abd incision, dried on abd (had hematoma previously). Dressing c hanged early am - Several scattered skin tears and ecchymosis -elevate bilat LEs, GABO dressing applied bilateraly. RESTORATIVE MEASURES/SELF-MANAGEMENT Patient/Family Target: Donell will ambulate in the hallway TID, be up in chair for meals, and increase his oral nut rition Progress to Target: Improving As evidenced by: Independent in room Oral intake improving--drinking premier protein drinks, water, coffee, 1500 ml limit NURSING ASSESSMENT & RECOMMENDATIONS FORWARD Nursing Assessment of Patient Stability Risk: Moderately stable Recommendations Forward: - Will need daily CHG with dialysis line. - keep legs elevated at all times and when up in chair. -Tunneled Dialysis line placed 08/26 -HD today (08/29) and will DC after. HD chair set up Barriers to discharge: -Brought glucometer but no strips, will bring them tomorrow. Diabbo s RN checked in with patient today, 08/27 -Will D/C this afternoon. Pharmacy working on getting medications filled. Has dialysis ch air set up for Saturday. 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 iron overload, afib w/ RvR on metop and amio, AKR on CKD, T 2DM, EF 55-60% (low for hyperdynamics of cirrhosis) HPI: Pt initially presented this admission to [facility] upon transfer from OSH with decompensate d cirrhosis and metabolic encephalopathy, was managed by Internal Medicine prior to OR 08/15: liver tx, allograft cholecystectomy, reperfusion liver biopsy 08/22: Dialysis cath placement at bedside, first run of dialysis SAFETY Patient/Family Target: Donell will be oriented and call appropriately, no falls Progress to Target: Improving As evidenced by: Donell has been alert and oriented, steady gait, fell prior to admit (pt has been here for 4 0+ days), independent COMFORT/ANXIETY/BEHAVIOR Patient/Family Target: Donell will have adequate pain control Progress to Target: Improving As evidenced by: Most of Donell's discomfort is from scrotal swelling. Suffered skin tear on scrotum when sit ting on the toilet. Now, gauze placed underneath scrotum and wearing underwear to support we ight of scrotum. Gave 2.5 mg oxycodone at 2330. HYGIENE/INFECTION Patient/Family Target: Donell's skin will remain intact. Progress to Target: No Change As evidenced by: - Some old drainage from abd incision, dried on abd (had hematoma previously). Dressing c hanged early am - Several scattered skin tears and ecchymosis -elevate bilat LEs, GABO dressing applied bilateraly. RESTORATIVE MEASURES/SELF-MANAGEMENT Patient/Family Target: Donell will ambulate in the hallway TID, be up in chair for meals, and increase his oral nut rition Progress to Target: Improving As evidenced by: Independent in room Oral intake improving--drinking premier protein drinks, water, coffee, 1500 ml limit NURSING ASSESSMENT & RECOMMENDATIONS FORWARD Nursing Assessment of Patient Stability Risk: Moderately stable Recommendations Forward: - Will need daily CHG with dialysis line. - keep legs elevated at all times and when up in chair. -Tunneled Dialysis line placed 08/26 -HD today (08/29) and will DC after. HD chair set up Barriers to discharge: -Brought glucometer but no strips, will bring them tomorrow. 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 resulting in iron overload, afib w/ RvR on metop and amio, KAR on CKD, T 2DM, EF 55-60% (low for hyperdynamics of cirrhosis) HPI: Pt initially presented this admission to [facility] upon transfer from OSH with decompensate d cirrhosis and metabolic encephalopathy, was managed by Internal Medicine prior to OR 08/15: liver tx, allograft cholecystectomy, reperfusion liver biopsy 08/22: Dialysis cath placement at bedside, first run of dialysis SAFETY Patient/Family Target: Donell will be oriented and call appropriately, no falls Progress to Target: Improving As evidenced by: Donell has been alert and oriented, steady gait, fell prior to admit (pt has been here for 4 0 days), independent COMFORT/ANXIETY/BEHAVIOR Patient/Family Target: Donell will have adequate pain control Progress to Target: Improving As evidenced by: Most of Donell's discomfort is from scrotal swelling. Wearing underwear to support weight of scrotum. Denied pain medication on day shift. HYGIENE/INFECTION Patient/Family Target: Donell's skin will remain intact. Progress to Target: No Change As evidenced by: - Some old drainage from abd incision, dried on abd (had hematoma previously). Dressing c hanged early am - Several scattered skin tears and ecchymosis -elevate bilat LEs, GABO dressing applied bilateraly. RESTORATIVE MEASURES/SELF-MANAGEMENT Patient/Family Target: Donell will ambulate in the hallway TID, be up in chair for meals, and increase his oral nut rition Progress to Target: Improving As evidenced by: Independent, Oral intake improving--drinking premier protein drinks, water, coffee, 1500 ml limit NURSING ASSESSMENT & RECOMMENDATIONS FORWARD Nursing Assessment of Patient Stability Risk: Moderately stable Recommendations Forward: - Seroquel available PRN. -tele-hx of SVT. NSR from last week - CHG done 08/26. Will need daily with dialysis line. - keep legs elevated at all times and when up in chair. -Tunneled Dialysis line placed 08/26 -HD tomorrow morning (08/29) and will DC after. HD chair set up Barriers to discharge: -Brought glucometer but no strips, will bring them tomorrow. Diabete s RN checked in with patient today, 08/27 -Will DC 08/29 - HD chair set up lan of Care - Verena Zuniga, PT - 08/28/2019 2:30 PM PSTFormatting of this note might be different fro m the original. Physical Therapy Treatment Note 08/28/2019 2:31 PM Hospital day 42 Patient seen on 4A. Brief Hospital Course: Doug Lawson is a 54 y.o. male with EtOH cirrhosis s/p OLTx on 08/16. He had a prolonged inpatient course prior to transplant; was deconditioned and mal nourished. He continues to do well with appropriate graft function. Increasing his nutrition and conditioning. Required HD Saturday, had a tunneled line placed 08/26, working towards an outpatient chair Saturday (per GUMARO Chakraborty, 118/19). Status Update: Anticipated discharge as soon as outpatient dialysis chair set up Relevant Precautions: Abdominal, fall risk Parties present for session: Physical therapist, patient, patient's mother and stepfather, MILK DRIVER Consulted/Discussed patient's care with: JAYDE Kamara Subjective: Patient awake and agreeable to physical therapy session. Pain: Patient without complaints of pain this session Objective: Patient encountered seated in recliner. Patient independently recalls 3/3 abdominal precautions. Support persons (mother and stepfa ther) present and also verbalize understanding. Sit<>stand: Independent. Gait: Ambulate x 300 feet without an assistive device with stand by assist progressing to i ndependent. Gait pattern notable for bilateral lower extremity external rotation and abducti on and low foot clearance, patient reports secondary to scrotal swelling as well as lower ex tremity edema. No acute instability notable. Stairs: Patient endorses difficulty lifting lower extremities to clear steps due to lower e xtremity and scrotal edema. Therapist suggested and demonstrated lateral approach with bilat eral hand hold on single rail. Patient verbalizes understanding. Patient ascends and descend s x 5 steps in the above-described manner with contact guard assist progressing to stand by assist. Patient and family endorse confidence with completion of task at home. Patient and family deny having any outstanding mobility or PT related questions or concerns in preparation for discharge. [facility] BASIC MOBILITY Difficulty turning over in bed 4 - None - Modified Independent/Independent Difficulty sitting/standing from chair w/ arms 4 - None - Modified Independent/ Independent Difficulty moving from supine to sitting on edge of bed 4 - None - Modified Independent/Ind ependent Help needed moving from /to chair/wheelchair 4 - None - Modified Independent/Independent Help needed walking in hospital room 4 - None - Modified independent/Independent Help needed climbing 3-5 steps w/railing 3 - A Little - Minimal/Contact Guard Assist/Superv ision [facility] Basic Mobility Total Score 23 *Note: activity was not directly observed and scoring is based on skills and deficits demvon marcos today 1 - Unable to do/total assistance = Total/Dependent Assist 2 - A lot = Maximum/Moderate Assistance 3 - A little = Minimal/Contact Guard Assist/Supervision 4 None = Modified independent/Independent Interpretation of [facility] Short Form - Basic Mobility: CMS Modifier (G-Code) Score (in points) % of Functional Impairment, Limitation, or Restrict ion CN 6 100% impaired, limited, restricted CM 7-9 At least 80%, but less than 100% impaired, limited, or restricted CL 10-14 At least 60%, but less than 80% impaired, limited, or restricted CK 15-19 At least 40%, but less than 60% impaired, limited, or restricted CJ 20-22 At least 20%, but less than 40% impaired, limited, or restricted CI 23 At least 1%, but less than 20% impaired, limited, or restricted CH 24 0% impaired, limited, or restricted Treatment provided this date: Gait and stair training, patient and family education Ended session: Patient seated in recliner with family present, call light within reachholger to nurse Kamara following session Assessment: Donell is progressing well with mobility, achieving all acute care PT goals this s ession. Preparing for discharge soon per chart review and feeling confident with support of family. Will sign off with recommendation to follow up with outpatient PT services after dis charge. See care plan for goals. ACTIVITY RECOMMENDATIONS: Nursing to re-assess per shift as needed. - Lights on and curtains open during day hours. - Up to chair for meals or 3x/day independently. - Routine ambulation 3-5x/day independently. DISCHARGE RECOMMENDATIONS: Home with assist PRN;Outpatient PT DME: leigha Kamara consulted re: recommendations PLAN: Discontinue acute care physical therapy services. VERENA PEARSON, PT, DPT Pager #[phone] Time in: 1120 Time out: 1132 This patient was seen for a total of 12 minutes of direct one-on-one skilled physical thera py which included 12 minutes of therapeutic activity. Should this patient discharge from the hospital prior to the next physical therapy treatmen t, this note shall serve as the discharge summary. Problem: PT Goals- Adult Goal: Functional Mobility Goal Description Patient will be independent with verbalization and demonstration of 3/3 abdominal precautio ns Patient will be able to transfer from supine to sitting independently using abdominal preca utions and bed features Patient will be able to transfer from sit to stand independently Patient will be able to ambulate 300 ft. With modified independence using front wheel walke r Patient will be independent with HEP Outcome: Goal met lan of Care - Fadia Verduzco, RD - 08/28/2019 9:27 AM PST Problem: Nutrition Interventions Intervention: Food and nutrient distribution type or amount Patient is now feeling like he will be able to eat more now that some renal diet restrictio ns have been relaxed. Patient understands the need to continue 1.5 L fluid restriction along with Diabetic diet restrictions. Patient tried Nepro yesterday and liked it. Will provide a case for patient to have at discharge. Calorie count ave (08/25-08/27): 1287 kcals (% of est kcal needs) and 69 gm protein (% of est protein needs). Patient was NPO for part of 08/26 a nd states intake was decreased due to time on HD. Patient previously assessed with severe p rotein-calorie malnutrition. Nutrition focused physical exam repeated today with improvemen t to moderate protein-calorie malnutrition, although difficult to assess accurately due to f luid retention. Pt meets the following criteria suggesting: Moderate protein-calorie malnutrition Depletion of fat stores: moderate (orbital/buccal fat pads, triceps) Depletion of muscle mass: mild to moderate (temporalis, clavicle region, shoulder, scapula) Fluid accumulation: severe (significant edema in BLE at least to knee) Other findings: Tongue is swollen, red with reduced papilla Rec: - Continue Diabetic diet, 1500 ml fluid restriction - Monitor renal labs, resume K and Phos restrictions if needed - CBG monitoring, insulin adjustment - Will add Nepro to lunch daily and provide a case at discharge - Continue fruited Magen's yogurt BID - Bowel care prn Intervention: Nutrition Education (08/27) Reviewed post-liver transplant education with patient and mother. Also reviewed divya betic diet guidelines and discussed fluid restriction. Patient understands that he is curre ntly off renal diet restrictions but reviewed foods high and low in potassium and recommende d avoiding foods high in potassium and provided a handout for later review. Also discussed avoiding high phos foods, especially processed foods which are likely to be high in sodium a nd phos. Patient and mother were able to remember most of earlier diet education and asked g ood questions. RD contact information was provided. (08/24) Post-liver transplant nutrition education completed w/ pt, mother and aunt. Topics covered include food safety, Mediterranean diet (heart healthy, Na controlled), and foods t hat may cause food-drug interaction. Also discussed the importance of balanced meals with l imited added sugars to help control blood sugars. Handouts provided. Did not review renal di et education today. Will return to complete that diet education prior to discharge if neede d. Good comprehension although pt questioned the need for some of the food safety recommenda tions; anticipate fair compliance. RD contact information was provided. (RD note 08/13)Met with patient and family members today to begin diabetes nutrition educ ation. Sister and mom will be here until Saturday before heading back to [place]. They plan to return and help care for patient for a while after discharge. They've done the grocery shopp ing for him in the past and are familiar with reading labels and things that patient should limit or avoid with regards to sodium content. At home, Donell doesn't eat consistent meals gen erally preferring to skip breakfast and lunch. He very much enjoys Gatorade. Has switched to Diet soda. We discussed consistent meal times, limiting sweetened beverages and other simpl e carb foods, portion control. They want to review materials I left for them and then reach out with follow up questions. I also encouraged outpatient follow up and team plans to place a referral prior to discharge. Intervention: Coordination of Nutrition Care Acceptable for discharge from a nutrition perspective. Following, Fadia Verduzco, MS, RD, LD Pager #[phone] Admitting Dx:Doug aLwson is a 54 y.o. 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 after presenting there with AMS, R knee trauma due to a fall, hyperglycemia, renal insufficiency. S/p OLT (08/16) Food allergies/intolerances:none noted Diet order:Diabetic, 1500 ml fluid restriction PO intake: See calorie count above Oral Supplements: chocolate Premier protein shakes x1 as snack Pertinent Meds:vit D3 50,000 units once weekly,lispro/NPH insulin, prilosec, prednisone , tacrolimus, Maegn's yogurt Formed BM x 1 (08/28) Skin:3+ pitting edema to mid delgadillo Chemistries: Last 72 Hours (or 3 results) - Refreshable Recent Labs 08/26/19 0612 08/27/19 0557 08/27/19 2248 08/28/19 0536 08/28/19 0745 NA 136 -- 135* -- -- 137 -- K 4.2 -- 4.6 -- -- 4.7 -- CL 104 -- 101 -- -- 103 -- BICARB 28 -- 27 -- -- 27 -- BUN 71* -- 76* -- -- 74* -- EGFRAFRICAN 36* -- 34* -- -- 33* -- CR 2.30* -- 2.40* -- -- 2.47* -- GLU 221* < > 245* < > 285* 240* 189* CA 8.4* -- 8.7 -- -- 8.7 -- MG 2.0 -- 2.0 -- -- 1.8 -- PO4 4.5 -- 4.6 -- -- 4.4 -- < > = values in this interval not displayed. Prealbumin: 10.1 (08/17), 23.0 (08/20) 24.5 (08/24) 22.4 (08/27) Lab Results Component Value Date [id number] 19.9 04/21/2019 Lab Results Component Value Date ZINC 31.0 04/23/2019 Zinc supplementation completed 08/08 Lab Results Component Value Date A1C 8.1 (H) 07/17/2019 *A1C not accurate due to hx of frequent transfusions 04/21/2019: retinol 0.21 mg/L (L) would not supplement vitamin A at this point. Possibly falsely low due to reduced hepatic s ynthesis of RBP by diseased liver. Would consider supplementation if retinol <0.15 04/23/2019: MMA 0.34 umol/L, serum copper 72.8 ug/dL CBG Result Av Min: 140 Max: 285 Ht:71"Currentwt:105.6kg (standing 08/24) Dosing Wt: 81.6 kg BMI:2 5.1kg/m2 Estimated Nutrition Needspost OLT:2450-2850kcals (30-35kcal/kg), 106-138gm protei n (1.3-1.7gm/kg) Wt Readings from Last 8 Encounters: 08/20/19 103.9 kg (229 lb 0.9 oz) 07/06/19 88.1 kg (194 lb 3.2 oz) 05/20/19 88.2 kg (194 lb 6.4 oz) 05/20/19 88 kg (194 lb) 05/18/19 88.9 kg (196 lb) 04/24/19 86.2 kg (190 lb 0.6 oz) 04/21/19 83.9 kg (185 lb) 04/21/19 84.4 kg (186 lb) lan of Ramila - Meagan Lim - 08/28/2019 7:21 AM PST Problem: Nutrition Interventions Intervention: Food and nutrient distribution type or amount Note: Nutrition: Caloric Intake Analysis for 08/27/2019 87 Grams PROTEIN, 1,538 Calories. Figures represent foods eaten at 3 meals. Includes 240 ml of Nepro. Foods recorded as eaten in EPIC. Calorie count complete. 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 resulting in iron overload, afib w/ RvR on metop and amio, KAR on CKD, T 2DM, EF 55-60% (low for hyperdynamics of cirrhosis) HPI: Pt initially presented this admission to [facility] upon transfer from [facility] with decompensate d cirrhosis and metabolic encephalopathy, was managed by Internal Medicine prior to OR 08/15: liver tx, allograft cholecystectomy, reperfusion liver biopsy 08/22: Dialysis cath placement at bedside, first run of dialysis SAFETY Patient/Family Target: Donell will be oriented and call appropriately, no falls Progress to Target: Improving As evidenced by: Donell has been alert and oriented, steady gait, fell prior to admit (pt has been here for 4 0 days), independent COMFORT/ANXIETY/BEHAVIOR Patient/Family Target: Donell will have adequate pain control Progress to Target: Improving As evidenced by: Most of Donell's discomfort is from scrotal swelling. Wearing underwear to support weight of scrotum. Requested pain medicine around 2200. HYGIENE/INFECTION Patient/Family Target: Donell's skin will remain intact. Progress to Target: No Change As evidenced by: - Some old drainage from abd incision, dried on abd (had hematoma previously). Dressing c hanged early am - Several scattered skin tears and ecchymosis -elevate bilat LEs, GABO dressing applied bilateraly. RESTORATIVE MEASURES/SELF-MANAGEMENT Patient/Family Target: Donell will ambulate in the hallway TID, be up in chair for meals, and increase his oral nut rition Progress to Target: Improving As evidenced by: Independent, Oral intake improving--drinking premier protein drinks, water, coffee,Calorie count NURSING ASSESSMENT & RECOMMENDATIONS FORWARD Nursing Assessment of Patient Stability Risk: Moderately stable Recommendations Forward: - Seroquel available PRN. -tele-hx of SVT. NSR from last week - CHG done 08/26. Will need daily with dialysis line. - keep legs elevated at all times and when up in chair. -Tunneled Dialysis line placed 08/26 -HD today. Pt said sister found 2 options near them in [place] for outpt chair-[facility] and a [facility]-they say they both have chairs and take his insurance-please follow up with CM in AM Patient had difficulty sleeping tonight in anticipation of discharge 08/28. Barriers to discharge: -Brought glucometer but no strips, will bring them tomorrow. Diabbo s RN checked in with patient today, 08/27 - Waiting for support person(s?) to be in state for all post-transplant teachings. Pt's mother was present 08/24 for Transplant teaching -Pt said sister found 2 options near them in [place]-[facility] and a [facility]-they say they both have chairs and take his insurance-please follow up with CM in AM Will keep temporary HD until kidney numbers level out Potential discharge 08/28. 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 resulting in iron overload, afib w/ RvR on metop and amio, KAR on CKD, T 2DM, EF 55-60% (low for hyperdynamics of cirrhosis) HPI: Pt initially presented this admission to [facility] upon transfer from OSH with decompensate d cirrhosis and metabolic encephalopathy, was managed by Internal Medicine prior to OR 08/15: liver tx, allograft cholecystectomy, reperfusion liver biopsy 08/22: Dialysis cath placement at bedside, first run of dialysis SAFETY Patient/Family Target: Donell will be oriented and call appropriately, no falls Progress to Target: Improving As evidenced by: Donell has been alert and oriented, steady gait, fell prior to admit (pt has been here for 4 0 days), independent COMFORT/ANXIETY/BEHAVIOR Patient/Family Target: Donell will have adequate pain control Progress to Target: Improving As evidenced by: Most of Donell's discomfort is from scrotal swelling. Wearing underwear to support weight of scrotum. Did not request any pain medication today HYGIENE/INFECTION Patient/Family Target: Donell's skin will remain intact. Progress to Target: No Change As evidenced by: - Some old drainage from abd incision, dried on abd (had had hematoma previously) - Several scattered skin tears and ecchymosis -elevate bilat LEs, GABO dressing applied bilateraly. RESTORATIVE MEASURES/SELF-MANAGEMENT Patient/Family Target: Donell will ambulate in the hallway TID, be up in chair for meals, and increase his oral nut rition Progress to Target: Improving As evidenced by: Independent, Oral intake improving--drinking premier protein drinks, water, coffee,Calorie count NURSING ASSESSMENT & RECOMMENDATIONS FORWARD Nursing Assessment of Patient Stability Risk: Moderately stable Recommendations Forward: - Seroquel available PRN. -tele-hx of SVT. NSR from last week - CHG done 08/26. Will need daily with dialysis line. - keep legs elevated at all times and when up in chair. -Tunneled Dialysis line placed 08/26 -HD today. Pt said sister found 2 options near them in [place] for outpt chair-[facility] and a [facility]-they say they both have chairs and take his insurance-please follow up with CM in AM Barriers to discharge: -Brought glucometer but no strips, will bring them tomorrow. Manohar s RN checked in with patient today, 08/27 - Waiting for support person(s?) to be in state for all post-transplant teachings. Pt's mother was present 08/24 for Transplant teaching -Pt said sister found 2 options near them in [place]-[facility] and [facility]-they say they both have chairs and take his insurance-please follow up with CM in AM Will keep temporary HD until kidney numbers level out lan of Care - Liv García, PT - 08/27/2019 2:11 PM PSTFormatting of this note might be different from the or iginal. Physical Therapy 08/27/2019 2:11 PM Time in: 1102 Time out: 1125 Hospital Day: 41 Patient was seen on . Present during session other than PT and patient: none Patient was seen for a total of 23 minutes of direct one on one skilled Physical Therapy wh ich included 13 gait training minutes of 10 therapeutic activity. Brief Hospital Course: Doug Lawson is a 54 y.o. male with EtOH cirrhosis s/p OLTx on 08/16. He had a prolonged inpatient course prior to transplant; was deconditioned and mal nourished. He continues to do well with appropriate graft function. Increasing his nutrition and conditioning. Required HD Saturday, had a tunneled line placed 08/26, working towards an outpatient chair Saturday. (per GUMARO Chakraborty 08/27/19) Status Update: no acute change Relevant Precautions: Abdominal Subjective: Patient reports wanting to wean from walker. Also reports will need to perform 4 stairs to get into/out of rental upon discharge. Pain: denies Objective: Patient received in sitting, agrees to therapy. Reviewed abdominal precautions. Patient ambulated 300 ft without assistive device and with contact guard assist. Ambulated with increased base of support with decreased step length, w eight shift laterally instead of anteriorly with noted trunk instability. No loss of balance on flat, level surfaces. Patient ambulated to stairwell (mask donned) and ascended/descended 4 stairs with unilatera l handrail and minimal assist, step to gait. First step patient with poor foot clearance res ulting in loss of balance with moderate assist for recovery, patient loss of balance into loly ng position. Patient was able to recover with assist and ascend/descend 4 stairs. Educated p rovided to ensure foot clearance prior to anterior weight shift. Returned to room and patient educated on safety concerns due to gait instability and poor a bility to perform stairs. Encouraged patient to use walker for safety and to slow tasks down for safety. [facility] BASIC MOBILITY Difficulty turning over in bed 3 - A Little - Minimal/Contact Guard Assist/Supervision Difficulty sitting/standing from chair w/ arms 3 - A Little - Minimal/Contact Guard Assist/ Supervision Difficulty moving from supine to sitting on edge of bed 3 - A Little - Minimal/contact Guar d Assist/Supervision Help needed moving from /to chair/wheelchair 3 - A Little - Minimal/Contact Guard Assist/S upervision Help needed walking in hospital room 3 - A Little - Minimal/Contact Guard assist/Supervisio n Help needed climbing 3-5 steps w/railing 2 - Alot - Maximum/Moderate Assistance [facility] Basic Mobility Total Score 17 Ended session: Patient left in chair with call pearson within reach and RN updated. ASSESSMENT: Patient with near fall performing stairs and ataxic gait. Gait deficits partly due to scrotal and lower extremity swelling but trunk instability also noted, continue to re commend walker for safety. Unless ability to perform stairs improves, patient will need assi st to get in/out of rental. Patient barrier for stairs also related to lower extremity swell ing, motor planning, and safety/judgement. Will continue to work on these deficits. This patient has good rehabilitation potential to achieve stated goals (see Care Plan for g oals) and requires continued rehabilitation services, given the patient's treatment is at a level of complexity or sophistication requiring the skills of a therapist. Problem: PT Goals- Adult Goal: Functional Mobility Goal Description Patient will be independent with verbalization and demonstration of 3/3 abdominal precautio ns Patient will be able to transfer from supine to sitting independently using abdominal preca utions and bed features Patient will be able to transfer from sit to stand independently Patient will be able to ambulate 300 ft. With modified independence using front wheel walke r Patient will be independent with HEP Outcome: Gradual progress toward goal Plan: ACTIVITY PLAN: *Nursing to re-assess per shift as needed.* - Lights on and curtains open during day hours. - Up to chair for meals or 3x/day with 1 person assist. - Routine short distance ambulation in hallway 3x/day with front wheeled walker and 1 perso n assist. DISCHARGE: RECOMMENDATIONS: 24 hour supervision;Continued PT at next level of care;Intermittent assist ance at discharge , needs assist for stairs and safety Next physical therapy session: Patient will be seen 5 times per week for focus on stairs, g ait, safety. ROMAN BundyT Should this patient discharge from the hospital prior to the next physical therapy treatmen t, this note shall serve as the discharge summary. lan of Care - Jason onNicole - 08/27/2019 8:26 AM PST Problem: Nutrition Interventions Intervention: Food and nutrient distribution type or amount Note: Nutrition: Caloric Intake Analysis for 08/26/2019 65 Grams PROTEIN, 1238 Calories. Figures represent foods eaten at 2 meals, and 2 snacks. Fo ods recorded as eaten in EPIC. Will continue to follow. 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 resulting in iron overload, afib w/ RvR on metop and amio, KAR on CKD, T 2DM, EF 55-60% (low for hyperdynamics of cirrhosis) HPI: Pt initially presented this admission to [facility] upon transfer from OSH with decompensate d cirrhosis and metabolic encephalopathy, was managed by Internal Medicine prior to OR 08/15: liver tx, allograft cholecystectomy, reperfusion liver biopsy 08/22: Dialysis cath placement at bedside, first run of dialysis SAFETY Patient/Family Target: Donell will be oriented and call appropriately, no falls Progress to Target: Improving As evidenced by: Donell has been alert and oriented, steady gait, fell prior to admit (pt has been here for 4 0 days), independent COMFORT/ANXIETY/BEHAVIOR Patient/Family Target: Donell will have adequate pain control Progress to Target: Improving As evidenced by: Most of Donell's discomfort is from scrotal swelling. Wearing underwear to support weight of scrotum. Donell complaints of back pain, medication given. HYGIENE/INFECTION Patient/Family Target: Donell's skin will remain intact. Progress to Target: No Change As evidenced by: - Some old drainage from abd incision, dried on abd (had had hematoma previously) - Several scattered skin tears and ecchymosis -elevate bilat LEs, GABO dressing applied bilateraly. RESTORATIVE MEASURES/SELF-MANAGEMENT Patient/Family Target: Donell will ambulate in the hallway TID, be up in chair for meals, and increase his oral nut rition Progress to Target: Improving As evidenced by: Independent, has been siting in chair from 0430, walks frequently Oral intake improving--drinking premier protein drinks, water, coffee,Calorie count NURSING ASSESSMENT & RECOMMENDATIONS FORWARD Nursing Assessment of Patient Stability Risk: Moderately stable Recommendations Forward: - Seroquel available PRN. -tele-hx of SVT. NSR from last week - CHG done 08/26. Will need daily with dialysis line. - keep legs elevated at all times and when up in chair. -Tunneled Dialysis line placed 08/26 -HD today. Pt said sister found 2 options near them in [place] for outpt chair-[facility] and a [facility]-they say they both have chairs and take his insurance-please follow up with CM in AM Barriers to discharge: -Needs specialty teaching for cbg monitoring at home-will be using d ifferent monitor than our stock Where do we get special glucometer?? - Waiting for support person(s?) to be in state for all post-transplant teachings. Pt's mother was present 08/24 for Transplant teaching -Pt said sister found 2 options near them in [place]-[facility] and a [facility]-they say they both have chairs and take his insurance-please follow up with CM in AM Will keep temporary HD until kidney numbers level out Hodan - Jenifer Rader RN - 08/26/2019 6:50 PM PSTNursing Handoff Patient Daily Goal: sleep at [facility] (08/25/19 194) Patient Specific Preferences: Donell likes chocolate protein shakes, prefers to sit in recline r chair that can elevate his legs (08/18/19 0800) [facility] IP NURSE HANDOFF: Tamez hospital course events: PMH: history of ESLD 2/2 alcohol abuse c omplicated by hepatic encephalopathy, EtOH cirrhosis (MELD 34), 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 resulting in iron overload, afib w/ RvR on metop and amio, KAR on CKD, T 2DM, EF 55-60% (low for hyperdynamics of cirrhosis) HPI: Pt initially presented this admission to [facility] upon transfer from OSH with decompensate d cirrhosis and metabolic encephalopathy, was managed by Internal Medicine prior to OR 08/15: liver tx, allograft cholecystectomy, reperfusion liver biopsy 08/22: Dialysis cath placement at bedside, first run of dialysis SAFETY Patient/Family Target: Donell will be oriented and call appropriately, no falls Progress to Target: Improving As evidenced by: Donell has been alert and oriented, steady gait, fell prior to admit (pt has been here for 4 0 days), independent COMFORT/ANXIETY/BEHAVIOR Patient/Family Target: Donell will have adequate pain control Progress to Target: Improving As evidenced by: Most of Donell's discomfort is from scrotal swelling. Wearing underwear to support weight of scrotum. No other complaints of pain. HYGIENE/INFECTION Patient/Family Target: Donell's skin will remain intact. Progress to Target: No Change As evidenced by: - Some old drainage from abd incision, dried on abd (had had hematoma previously) - Several scattered skin tears and ecchymosis -elevate and gabo wrap bilat LEs-except not over wound on rle-see LDAs RESTORATIVE MEASURES/SELF-MANAGEMENT Patient/Family Target: Donell will ambulate in the hallway TID, be up in chair for meals, and increase his oral nut rition Progress to Target: Improving As evidenced by: Independent, has been eating in chair, walks frequently Oral intake improving--drinking premier protein drinks,Calorie count NURSING ASSESSMENT & RECOMMENDATIONS FORWARD Nursing Assessment of Patient Stability Risk: Moderately stable Recommendations Forward: - Seroquel available PRN. -tele-hx of SVT-but NSR for past couple weeks - CHG done 08/26. Will need daily with dialysis line. - keep legs elevated at all times and when up in chair. Legs wrapped in GABO wrap and gauze -Tunneled Dialysis line placed 08/26 -HD tomorrow--Pt said sister found 2 options near them in [place] for outpt chair-a [facility] and a [facility]-they say they both have chairs and take his insurance-please follow up w ith CM in AM Barriers to discharge: -Needs specialty teaching for cbg monitoring at home-will be using d ifferent monitor than our stock Where do we get special glucometer?? - Waiting for support person(s?) to be in state for all post-transplant teachings. Pt's mother was present 08/24 for Transplant teaching -Pt said sister found 2 options near them in [place]-a [facility] and a [facility]-they say they both have chairs and take his insurance-please follow up with CM in AM Will keep temporary HD until kidney numbers level out Hodan - Jody Rausch RN - 08/26/2019 8:50 AM PST Interventional Radiology Procedure Nursing Handoff Note Procedure: Tunneled dialysis catheter Interventional Radiology Attending:Harinder Interventional Radiology (Fellow)/pager: [phone] Procedure Meds: Fentanyl IV 150 mcg Midazolam IV 2 mg Access site(s):LIJ Closure device: sutures Events: Pt arrives pleasant and cooperative, required manual airway adjustment after 2 mg o f Versed, but remained cooperative and easily rousable. Tolerated procedure well. Pt. location prior to IR: 4A Pt. Disposition and /or recovery post IR Procedure: 4A lan of Ramila - Elise Rosa - 08/26/2019 8:30 AM PST Problem: Nutrition Interventions Intervention: Food and nutrient distribution type or amount Note: Nutrition: Caloric Intake Analysis for 08/25/2019 54 Grams PROTEIN, 1085 Calories. Figures represent foods eaten at 3 meals. Foods recorded a s eaten in EPIC. Will continue to follow. Elise Denise, [place] [id number] lan of Care - Verena Dias i PT - 08/26/2019 8:22 AM PSTPhysical Therapy Contact Note: Patient remains on physical therapy caseload, currently off unit in IR for scheduled tunnel ed dialysis catheter placement. Will follow up as able to and appropriate. Thank you. Verena Pearson PT, DPT Pager #[phone] signed by Verena Pearson PT at 08/26/2019 8:22 AM PSTHa lainey - Adenike Newsome RN - 08/26/2019 3:05 AM PSTNursing Handoff Patient Daily Goal: sleep at [facility] (08/25/19 1945) Patient Specific Preferences: Donell likes chocolate protein shakes, prefers to sit in recline r chair that can elevate his legs (08/18/19 0800) [facility] IP NURSE HANDOFF: [facility] hospital course events: PMH: history of ESLD 2/2 alcohol abuse c omplicated by hepatic encephalopathy, EtOH cirrhosis (MELD 34), 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 resulting in iron overload, afib w/ RvR on metop and amio, KAR on CKD, T 2DM, EF 55-60% (low for hyperdynamics of cirrhosis) HPI: Pt initially presented this admission to [facility] upon transfer from OSH with decompensate d cirrhosis and metabolic encephalopathy, was managed by Internal Medicine prior to OR 08/15: liver tx, allograft cholecystectomy, reperfusion liver biopsy 08/22: Dialysis cath placement at bedside, first run of dialysis SAFETY Patient/Family Target: Donell will be oriented and call appropriately, no falls Progress to Target: Improving As evidenced by: Donell is A/Ox4 and calls appropriately. Able to answer all orientation questions, Fall risk , will monitor closely. Donell has a hx of falls. He is able to put his legs back into bed by himself to reduse edema. He is ambulating independently in the room using bjhwx-dl-pbjgi contact and calling appropr iately when he needs assistance. Needs close SBA when ambulating in the hallway. COMFORT/ANXIETY/BEHAVIOR Patient/Family Target: Donell will have adequate pain control Progress to Target: No Change As evidenced by: Most of Donell's discomfort is from scrotal swelling. Wearing underwear to support weight of scrotum. No other complaints of pain. HYGIENE/INFECTION Patient/Family Target: Donell's skin will remain intact. Progress to Target: Deteriorating As evidenced by: - Some leaking from old YA site - mepilex used d/t pain with tape removal. - Several scattered skin tears. Need to prevent shearing when Donell tries to scoot up in bed. - lots of bruising and fragile skin. Central line dressing over very fragile skin.BLE wrapp ed in kerlix and GABO wraps to help reduce swelling and catch leakage/weeping. RESTORATIVE MEASURES/SELF-MANAGEMENT Patient/Family Target: Donell will ambulate in the hallway TID, be up in chair for meals, and increase his oral nut rition. NPO from mednight. Progress to Target: Improving As evidenced by: Up from chair himself. Legs very edematous and heavy. FALL RISK. Sat in chair for a few hours. Tolerated well. Oral intake improving. Adding protein supplement to meals. Calorie count started. Check CBG HS. NURSING ASSESSMENT & RECOMMENDATIONS FORWARD Nursing Assessment of Patient Stability Risk: Moderately stable Recommendations Forward: - Seroquel available PRN. - CHG done 08/24. Will need daily with dialysis line. - keep legs elevated at all times and when up in chair. Legs wrapped in GABO wrap and gauze, bilateral legs and feet weeping. - Dialysis line placed 08/22 -HD today 08/25 NPO @ [place] to get tunneled cath in IR tomorrow Barriers to discharge: - needs lining baster consult to review Renal diet- pt ordering whoppers and fried chicken, family delivering Dietitian saw Pt on 08/24 - Needs specialty teaching for cbg monitoring at home-will be using different monitor than our stock Where do we get special glucometer?? - Waiting for support person(s?) to be in state for all post-transplant teachings. Pt's mother was present 08/24 for Transplant teaching - pending kidney recovery/newly starting dialysis Will keep temporary HD until kidney numbers level out andoff - Sharda Smallwood RN - 08/25/2019 3:53 PM PSTNursing Handoff Patient Daily Goal: walk more, manage leg swelling (08/22/19 0800) Patient Specific Preferences: Donell likes chocolate protein shakes, prefers to sit in recline r chair that can elevate his legs (08/18/19 08) [facility] IP NURSE HANDOFF: [facility] hospital course events: PMH: history of ESLD 2/2 alcohol abuse c omplicated by hepatic encephalopathy, EtOH cirrhosis (MELD 34), 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 resulting in iron overload, afib w/ RvR on metop and amio, KAR on CKD, T 2DM, EF 55-60% (low for hyperdynamics of cirrhosis) HPI: Pt initially presented this admission to [facility] upon transfer from OSH with decompensate d cirrhosis and metabolic encephalopathy, was managed by Internal Medicine prior to OR 08/15: liver tx, allograft cholecystectomy, reperfusion liver biopsy 08/22: Dialysis cath placement at bedside, first run of dialysis SAFETY Patient/Family Target: Donell will be oriented and call appropriately, no falls Progress to Target: Improving As evidenced by: Donell is A/Ox4 and calls appropriately. Although able to answer all orientation questions, at times his speech does ramble and fall off topic. Delirium improved. Fall risk. Monitor cl osely. Donell has been somewhat argumentative and not willing to hear reason from RN. Donell has a hx of falls. Needs assistance getting legs back into bed d/t edema. Still somewha t overestimating his abilities regarding ability to safely get around. Is ambulating indepen dently in the room using crwds-bt-jvwis contact and calling appropriately when he needs assi stance. Needs close SBA when ambulating in the jordan with FWW. COMFORT/ANXIETY/BEHAVIOR Patient/Family Target: Donell will have adequate pain control Progress to Target: No Change As evidenced by: Most of Donell's discomfort is from scrotal swelling. Wearing underwear to support weight of scrotum. No other complaints of pain. HYGIENE/INFECTION Patient/Family Target: Donell's skin will remain intact. Progress to Target: Deteriorating As evidenced by: - Some leaking from old YA site - mepilex used d/t pain with tape removal. - Several scattered skin tears. Take care to prevent shearing when Donell tries to scoot up in bed. - lots of bruising and fragile skin. Removed all tape with adhesive remover. Central line d ressing over very fragile skin, used cavilon. Remove carefully for changes. -BLE wrapped in kerlix and GABO wraps to help reduce swelling and catch leakage/weeping. RESTORATIVE MEASURES/SELF-MANAGEMENT Patient/Family Target: Donell will ambulate in the hallway TID, be up in chair for meals, and increase his oral nut rition Progress to Target: Improving As evidenced by: Up with SBA. Legs very edematous and heavy. FALL RISK. Sat in chair and edge of bed for a few hours. Tolerated well. Oral intake improving-- Pt eating multiple small meals which makes getting an accurate CBG difficult. Glycemic team following. Adding protein supplement to meals. Calorie count starte d NURSING ASSESSMENT & RECOMMENDATIONS FORWARD Nursing Assessment of Patient Stability Risk: Moderately stable Recommendations Forward: - Seroquel available PRN. - CHG done 08/24. Will need daily with dialysis line. - keep legs elevated at all times and when up in chair. Legs wrapped in GABO wrap and gauze, bilateral legs and feet weeping. - Dialysis line placed 08/22 -HD today 08/25 NPO @ [place] to get tunneled cath in IR tomorrow Barriers to discharge: - needs lining baster consult to review Renal diet- pt ordering whoppers and fried chicken, family delivering Dietitian saw Pt on 08/24 - Needs specialty teaching for cbg monitoring at home-will be using different monitor than our stock Where do we get special glucometer?? - Waiting for support person(s?) to be in state for all post-transplant teachings. Pt's mother was present 08/24 for Transplant teaching - pending kidney recovery/newly starting dialysis Will keep temporary HD until kidney numbers level out lan of Care - Pramod Rosenberg MD - 08/25/2019 9:54 AM PSTThis documentation is a new requirement from our new DIALYSIS vendor ([email or web address]) Patient has consented to dialysis support, he understands risks and benefits and has agreed to proceed with therapy. Please see signed consent on EPIC for further details Next HD session scheduled for today lan of Care - Federico Julian PT - 08/25/2019 8:52 AM PSTPhysical Therapy Contact Note: Chart reviewed, RN consulted and reported patient is heading off to dialysis soon and unava ilable at this time. Will re-attempt as able. 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 overload, afib w/ RvR on metop and amio, KAR on CKD, T 2DM, EF 55-60% (low for hyperdynamics of cirrhosis) HPI: Pt initially presented this admission to [facility] upon transfer from OSH with decompensate d cirrhosis and metabolic encephalopathy, was managed by Internal Medicine prior to OR 08/15: liver tx, allograft cholecystectomy, reperfusion liver biopsy 08/22: Dialysis cath placement at bedside, first run of dialysis SAFETY Patient/Family Target: Donell will be oriented and call appropriately, no falls Progress to Target: Improving As evidenced by: Donell is A/Ox4 and calls appropriately. Although able to answer all orientation questions, at times his speech does ramble and fall off topic. Delirium improved. Fall risk. Monitor cl osely. Donell has been somewhat argumentative and not willing to hear reason from RN. Donell has a hx of falls. Needs assistance getting legs back into bed d/t edema. Still somewha t overestimating his abilities regarding ability to safely get around. Is ambulating indepen dently in the room using iunrs-ms-nihif contact and calling appropriately when he needs assi stance. Needs close SBA when ambulating in the jordan with FWW. COMFORT/ANXIETY/BEHAVIOR Patient/Family Target: Donell will have adequate pain control Progress to Target: No Change As evidenced by: Most of Donell's discomfort is from scrotal swelling. Wearing underwear to support weight of scrotum. No other complaints of pain. HYGIENE/INFECTION Patient/Family Target: Donell's skin will remain intact. Progress to Target: Deteriorating As evidenced by: - Some leaking from old YA site - mepilex used d/t pain with tape removal. - Several scattered skin tears. Take care to prevent shearing when Donell tries to scoot up in bed. - lots of bruising and fragile skin. Removed all tape with adhesive remover. Central line d ressing over very fragile skin, used cavilon. Remove carefully for changes. -BLE wrapped in kerlix and GABO wraps to help reduce swelling and catch leakage/weeping. RESTORATIVE MEASURES/SELF-MANAGEMENT Patient/Family Target: Donell will ambulate in the hallway TID, be up in chair for meals, and increase his oral nut rition Progress to Target: Improving As evidenced by: Up with SBA. Legs very edematous and heavy. FALL RISK. Sat in chair and edge of bed for a few hours. Tolerated well. Oral intake improving-- Pt eating multiple small meals which makes getting an accurate CBG difficult. Glycemic team following. Adding protein supplement to meals. NURSING ASSESSMENT & RECOMMENDATIONS FORWARD Nursing Assessment of Patient Stability Risk: Moderately stable Recommendations Forward: - Seroquel available PRN. - CHG done 08/24. Will need daily with dialysis line. - keep legs elevated at all times and when up in chair. Legs wrapped in GABO wrap and gauze, bilateral legs and feet weeping. - Dialysis line placed 08/22 Barriers to discharge: - needs lining baster consult to review Renal diet- pt ordering whoppers and fried chicken, family delivering Dietitian saw Pt on 08/24 - Needs specialty teaching for cbg monitoring at home-will be using different monitor than our stock Where do we get special glucometer?? - Waiting for support person(s?) to be in state for all post-transplant teachings. Pt's mother was present 08/24 for Transplant teaching - pending kidney recovery/newly starting dialysis Will keep temporary HD until kidney numbers level out ignificant Event - Macie Fraser MD - 08/25/2019 12:55 AM PSTPaged about pt bleeding through dressings from ab dominal surgical incision. Went to assess pt, VSS. Denied SOB, CP. Multiple dressings satura jeannette with blood. Ordered CBC which was stable from previous. Coags pending. EGS faye also c jarred to assess, thought blood was from old hematoma. Wrapped abdomen with abdominal binder wi th kerlix rolls to add pressure. Macie Aggarwal MD, MPH, [employer] General Surgery, PGY-1 Addendum: Coags returned, INR 1.4. Pt was bleeding through pressure dressing so quickclot w as placed on incision. Recheck at 4am showed improved hemostasis. 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 iron overload, afib w/ RvR on metop and amio, KAR on CKD, T 2DM, EF 55-60% (low for hyperdynamics of cirrhosis) HPI: Pt initially presented this admission to [facility] upon transfer from OSH with decompensate d cirrhosis and metabolic encephalopathy, was managed by Internal Medicine prior to OR 08/15: liver tx, allograft cholecystectomy, reperfusion liver biopsy 08/22: Dialysis cath placement at bedside, first run of dialysis SAFETY Patient/Family Target: Donell will be oriented and call appropriately, no falls Progress to Target: Improving As evidenced by: Donell is A/Ox4 and calls appropriately. Although able to answer all orientation questions, at times his speech does ramble and fall off topic. Delirium improved. Fall risk. Monitor cl osely. Donell has been somewhat argumentative today and not willing to hear reason from RN. Donell has a hx of falls. Needs assistance getting legs back into bed d/t edema. Still somewha t overestimating his abilities regarding ability to safely get around. Is ambulating indepen dently in the room using oprgx-sr-jlalt contact and calling appropriately when he needs assi stance. Needs close SBA when ambulating in the jordan with FWW. COMFORT/ANXIETY/BEHAVIOR Patient/Family Target: Donell will have adequate pain control Progress to Target: No Change As evidenced by: Most of Donell's discomfort is from scrotal swelling. Wearing underwear to support weight of scrotum. No other complaints of pain. HYGIENE/INFECTION Patient/Family Target: Donell's skin will remain intact. Progress to Target: Deteriorating As evidenced by: - Some leaking from old YA site - mepilex used d/t pain with tape removal. - Several scattered skin tears. Take care to prevent shearing when Donell tries to scoot up in bed. - lots of bruising and fragile skin. Removed all tape with adhesive remover. Central line d ressing over very fragile skin, used cavilon. Remove carefully for changes. -BLE wrapped in kerlix and GABO wraps to help reduce swelling and catch leakage/weeping. RESTORATIVE MEASURES/SELF-MANAGEMENT Patient/Family Target: Donell will ambulate in the hallway TID, be up in chair for meals, and increase his oral nut rition Progress to Target: Improving As evidenced by: Up with SBA. Legs very edematous and heavy. FALL RISK. Sat in chair and edge of bed for a few hours. Tolerated well. Oral intake improving-- Pt eating multiple small meals which makes getting an accurate CBG difficult. Glycemic team following. Adding protein supplement to meals. NURSING ASSESSMENT & RECOMMENDATIONS FORWARD Nursing Assessment of Patient Stability Risk: Moderately stable Recommendations Forward: - Seroquel available PRN. - CHG done 08/24. Will need daily with dialysis line. - keep legs elevated at all times and when up in chair. Legs wrapped in GABO wrap and gauze, bilateral legs and feet weeping. - Dialysis line placed 08/22 Barriers to discharge: - needs lining baster consult to review Renal diet- pt ordering whoppers and fried chicken, family delivering Dietican saw Pt on 08/24 - Needs specialty teaching for cbg monitoring at home-will be using different monitor than our stock Where do we get special glucometer?? - Waiting for support person(s?) to be in state for all post-transplant teachings. Pt's mother was present today 08/24 for Transplant teaching - pending kidney recovery/newly starting dialysis Will keep temporary HD until kidney numbers level out lan of Care - Fadia Verduzco, RD - 08/24/2019 3:28 PM PSTFormatting of this note might be different from the martha gilorena. Problem: Nutrition Interventions Intervention: Food and nutrient distribution type or amount TF dc'd on 08/21. Patient reports good appetite. He reported eating a breakfast burrito wit h salsa at 4 am, oatmeal with brown sugar, kefir, and peach yogurt for breakfast. He states family brought in a Whopper and a 4 piece chicken and coleslaw yesterday. Loose stools have improved with Benefiber and dc of TF. CBG's elevated, RN states difficulty getting fasting l evels since pt is eating frequently. Needs updated NFPE but did not update today as pharmacy was waiting to perform pt teaching. Patient wished to continue on plain kefir instead of Na ncy's yogurt. Patient with KAR and required HD on 08/22. Diet was changed to Renal by MD allan yanes the patient was seen today. Nutrition Diagnosis(per RD note 07/21):Pt meets the following criteria suggesting:Izzy re protein-calorie malnutrition Energy intake:<75% energy intake compared to energy requirementfor > 1 mo(resolved) Depletion of fat stores:moderate(orbital) Depletion of muscle mass:severe(catholic, shoulder, scapula, clavicle) Fluid accumulation:severe(ascites and significant edema in BLE at least to knee) Rec: - Change diet to Diabetic, Renal - Monitor renal labs, liberalize diet if labs improve - CBG monitoring, insulin adjustment - Decrease Premier protein shakes to 1 daily (5 gm carb, 30 gm pro, 500 mg phos) - Continue plain kefir BID - Continue Benefiber TID with meals - Bowel care prn Intervention: Nutrition Education (08/24) Discharge planning related to Nutrition: Post-liver transplant nutrition education completed w/ pt, mother and aunt. Topics covered include food safety, Mediterranean diet (heart healthy, Na controlled), and foods that may cause food-drug interaction. Also discussed the importance of balanced meals with limited a dded sugars to help control blood sugars. Handouts provided. Did not review renal diet educa tion today. Will return to complete that diet education prior to discharge if needed. Good comprehension although pt questioned the need for some of the food safety recommendations; a nticipate fair compliance. RD contact information was provided. (RD note 08/13)Met with patient and family members today to begin diabetes nutrition educ ation. Sister and mom will be here until Saturday before heading back to [place]. They plan to return and help care for patient for a while after discharge. They've done the grocery shopp ing for him in the past and are familiar with reading labels and things that patient should limit or avoid with regards to sodium content. At home, Donell doesn't eat consistent meals gen erally preferring to skip breakfast and lunch. He very much enjoys Gatorade. Has switched to Diet soda. We discussed consistent meal times, limiting sweetened beverages and other simpl e carb foods, portion control. They want to review materials I left for them and then reach out with follow up questions. I also encouraged outpatient follow up and team plans to place a referral prior to discharge. Intervention: Coordination of Nutrition Care Acceptable for discharge from a nutrition perspective. Will follow-up with diet education needs regarding renal diet restrictions prior to discharge. Following, Fadia Verduzco MS, RD, LD Pager #[phone] Admitting Dx:Doug Lawson is a 54 y.o. 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 after presenting there with AMS, R knee trauma due to a fall, hyperglycemia, renal insufficiency. S/p OLT (08/16) Food allergies/intolerances:none noted Diet order:Renal Oral Supplements: chocolate Premier protein shakes TID Pertinent Meds:vit D3 50,000 units once weekly,lispro/NPH insulin, prilosec, prednisone , tacrolimus, Magen's kefir, benefiber Zinc supplementation completed 08/08 Loose BM x 1 (08/23) Skin:jaundiced,3+ pitting edema to mid [place] Chemistries: Last 72 Hours (or 3 results): Recent Labs 08/22/19 0539 08/23/19 0536 08/24/19 0552 08/24/19 0718 08/24/19 1001 08/24/19 1338 NA 135* -- 137 -- 137 -- -- -- K 5.4* -- 4.7 -- 4.8 -- -- -- CL 104 -- 106 -- 105 -- -- -- BICARB 19* -- 25 -- 26 -- -- -- BUN 150* -- 99* -- 99* -- -- -- EGFRAFRICAN 32* -- 42* -- 35* -- -- -- CR 2.58* -- 2.03* -- 2.37* -- -- -- GLU 103* < > 149* < > 228* 209* 209* 198* CA 8.5* -- 8.1* -- 8.5* -- -- -- MG 2.4 -- 2.2 -- 2.1 -- -- -- PO4 6.8* -- 4.9* -- 6.1* -- -- -- < > = values in this interval not displayed. Prealbumin: 10.1 (08/17), 23.0 (08/20) 24.5 (08/24) Lab Results Component Value Date [id number] 19.9 04/21/2019 Lab Results Component Value Date ZINC 31.0 04/23/2019 Lab Results Component Value Date A1C 8.1 (H) 07/17/2019 *A1C not accurate due to hx of frequent transfusions 04/21/2019: retinol 0.21 mg/L (L) would not supplement vitamin A at this point. Possibly falsely low due to reduced hepatic s ynthesis of RBP by diseased liver. Would consider supplementation if retinol <0.15 04/23/2019: MMA 0.34 umol/L, serum copper 72.8 ug/dL CBG Result Av.7 Min: 198 Max: 347 Ht:71"Currentwt: 105.6kg (standing 08/24) Dosing Wt: 81.6 kg BMI:25 .1kg/m2 Estimated Nutrition Needspost OLT:2450-2850kcals (30-35kcal/kg), 106-138gm protei n (1.3-1.7gm/kg) Wt Readings from Last 8 Encounters: 08/20/19 103.9 kg (229 lb 0.9 oz) 07/06/19 88.1 kg (194 lb 3.2 oz) 05/20/19 88.2 kg (194 lb 6.4 oz) 05/20/19 88 kg (194 lb) 05/18/19 88.9 kg (196 lb) 04/24/19 86.2 kg (190 lb 0.6 oz) 04/21/19 83.9 kg (185 lb) 04/21/19 84.4 kg (186 lb) lan of Javi Richardson PT - 08/24/2019 1:38 PM PSTPhysical Therapy Contact Note: Chart reviewed, RN consulted. Attempted to work with Chan, lunch just arrived and pt req uesting to eat. Will follow up as able. Javi Ren, PT, DPT Pager: [phone] lan of Sharyn Avila - 08/24/2019 10:33 AM PSTFormatting of this note might be different from the martha younger. Occupational therapy treatment note: [id number] DOUG LAWSON Date of : 1965 Start of care: 07/17/2019 Date of onset: 07/17/2019 Referring/Attending Practitioner: Marsha Garcia MD Primary/Referral Diagnosis/ICD-9: K70.31 Alcoholic cirrhosis of liver with ascites (HCC) I47.1 SVT (supraventricular tachycardia) (HCC) Insurance: Payor: [employer] / Plan: [facility] / Product Type: Medicaid / 08/24/2019 10:33 AM Time in: 0910 Time out: 0934 Pt admitted 07/17/2019, hospital day # 38 Pt seen on: 4A Precautions: abdominal, fall risk due to bilateral lower extremities edema Indication for Occupational Therapy Consult: Assess pt's level of function for ADLs and fun ctional mobility, educate pt and/or family on precautions and safety with ADL performance, d etermine adaptive equipment and safety techniques for discharge planning Brief Hospital Course: Per MD note, "Doug Lawson is a 54 y.o. male with EtOH cirrh osis s/p OLTx on 08/16. He had a prolonged inpatient course prior to transplant; was decondi tioned and malnourished. He continues to do well with appropriate graft function. Increasing his nutrition and conditioning." Hospital Course Update: Pt with increasing scrotal swelling Present in Session: Family: mom Subjective: Pt reports he is unable to logroll due to scrotal swelling causing discomfort Objective: Pt supine in bed on arrival. Recalls 2/3 abdominal precautions, education provid ed. Min assist with lower extremity to sitting edge of bed via pivot, educated pt on importa nce of logroll however pt prefers to pivot on his bottom as he feels it is less painful with his scrotal swelling. Max assist to don socks. Min assist to thread legs into pants, pt the n able to raise waistband over hips. standby assist to ambulate around room without assistiv e device. Min assist with lower extremity to return to supine in bed. [facility] daily activity assessment How much help from another person does the patient currently need for: Lower body dressing 2 - Alot Bathing 2 - Alot Toileting 3 - Little Upper body dressing 3 - Little Personal grooming 3 - Little Eating meals 4 - None [facility] Daily Activity Total Score 17 *Notes activity was not directly observed and scoring is based on skills and deficits demon strated today. 1 - Unable to do/total assistance = Total/Dependent Assist 2 - A lot = Maximum/Moderate Assistance 3 - A little = Minimal/Contact Guard Assist/Supervision 4 None = Modified independent/Independent Interpretation of [facility] Short Form Daily Activity: CMS Modifier (G-Code) Score (in points) % of Functional Impairment, Limitation, or Restriction CN 6 100% impaired, limited, restricted CM 7-9 At least 80%, but less than 100% impaired, limited, or restricted CL 10-14 At least 60%, but less than 80% impaired, limited, or restricted CK 15-19 At least 40%, but less than 60% impaired, limited, or restricted CJ 20-22 At least 20%, but less than 40% impaired, limited, or restricted CI 23 At least 1%, but less than 20% impaired, limited, or restricted CH 24 0% impaired, limited, or restricted Pain: Endorses discomfort with scrotal swelling, did not rate Ended session: Patient left in bed, supine, call button in reach and nursing aware. Assessment: Pt with improving lower extremity edema which is allowing him more independenc e with lower body dressing. Pt with fair adherence to abdominal precautions, primarily due t o scrotal swelling. Will continue to benefit from acute OT services to increase independence with ADLs and functional mobility. Recommendations: ACTIVITY/ENVIRONMENTAL RECOMMENDATIONS: *Nursing to re-assess per shift as needed.* - lights on, curtains open - out of bed as tolerated - in chair for all meals or 3x/day Memory & New Learning: Highly structured environment - Minimal distraction - Provide external orientation aids: utilize white board and cue correct date, place, sit uation, simple goals for the day - For safe mobility: Raise awareness of possible fall hazards, demonstrate safety strateg ies - Provide assist to identify when problem is occurring, help generate possible solutions - Focus on one activity or one person at a time - Help patient to prioritize activities - Provide immediate and objective feedback during the activity - Anticipate need for frequent repetition for understanding - Guide prioritization of top 2 goals for patient to focus on - Acknowledge frustration as needed and address concerns in a timely manner DISCHARGE RECOMMENDATIONS: 24 hour supervision;Home with assist PRN GOALS: Problem: OT Goals- Adult Goal: Other Goal Description Patient will complete UB grooming while standing with independence Patient will complete perineal care independently Patient will be AAOx4 during session Patient will demonstrate correct sequence for out of bed mobility transfers Patient will complete LB dressing for socks with [place] New goals 08/20 Pt will be modified independent with lower body dressing using adaptive equipment as needed . Pt will be independent with logroll to/from edge of bed for ADL engagement. Outcome: Gradual progress toward goal The skills of this therapist are necessary to safely and effectively furnish a recognized t herapy service whose goal is improvement of an impairment or functional limitation. Time in: 909 Time out: 933 Patient was seen for a total of 24 minutes of direct one on one skilled OT which included: - ADL Trainin minutes Sharyn Bajwa OTR/L Pager #[phone] andoff - Jersey Umana RN - 08/24/2019 6:14 AM PSTNursing Handoff Patient Daily Goal: walk more, manage leg swelling (08/22/19 0800) Patient Specific Preferences: Donell likes chocolate protein shakes, prefers to sit in recline r chair that can elevate his legs (08/18/19 0800) [facility] IP NURSE HANDOFF: Tamez hospital course events: PMH: history of ESLD 2/2 alcohol abuse c omplicated by hepatic encephalopathy, EtOH cirrhosis (MELD 34), 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 resulting in iron overload, afib w/ RvR on metop and amio, KAR on CKD, T 2DM, EF 55-60% (low for hyperdynamics of cirrhosis) HPI: Pt initially presented this admission to [facility] upon transfer from [facility] with decompensate d cirrhosis and metabolic encephalopathy, was managed by Internal Medicine prior to OR 08/15: liver tx, allograft cholecystectomy, reperfusion liver biopsy 08/22: Dialysis cath placement at bedside, first run of dialysis SAFETY Patient/Family Target: Donell will be oriented and call appropriately, no falls Progress to Target: Improving As evidenced by: Donell is A/Ox4 and calls appropriately. Although able to answer all orientation questions, at times his speech does ramble and fall off topic. Delirium improved. Fall risk. Monitor cl osely. Donell has a hx of falls. Needs assistance getting legs back into bed d/t edema and help stand ing. Still somewhat overestimating his abilities regarding ability to safely get around. Is ambulating independently in the room using ubpzx-nx-sdwpt contact and calling appropriately when he needs assistance. Needs close SBA when ambulating in the jordan with FWW. COMFORT/ANXIETY/BEHAVIOR Patient/Family Target: Donell will have adequate pain control Progress to Target: No Change As evidenced by: Most of Donell's discomfort is from scrotal swelling. HYGIENE/INFECTION Patient/Family Target: Donell's skin will remain intact. Progress to Target: Deteriorating As evidenced by: - Some leaking from old YA site - mepilex used d/t pain with tape removal. - Several scattered skin tears. Take care to prevent shearing when Donell tries to scoot up in bed. - lots of bruising and fragile skin. Removed all tape with adhesive. Central line dressing over very fragile skin, used cavilon. Remove carefully for changes. RESTORATIVE MEASURES/SELF-MANAGEMENT Patient/Family Target: Donell will ambulate in the hallway TID, be up in chair for meals, and increase his oral nut rition Progress to Target: Improving As evidenced by: Up with SBA. Legs very edematous and heavy. FALL RISK. Sat in chair for a few hours. Maryjo erated well. Oral intake improved. Adding protein supplement to meals. NURSING ASSESSMENT & RECOMMENDATIONS FORWARD Nursing Assessment of Patient Stability Risk: Moderately stable Recommendations Forward: - Seroquel available PRN. - CHG done 08/23. Will need daily with dialysis line. - keep legs elevated at all times and when up in chair. Legs wrapped in GABO wrap and gauze, bilateral legs and feet weeping. - Dialysis line placed 08/22 Barriers to discharge: - needs lining baster consult to review Renal diet- pt ordering whoppers and fried chicken, family delivering - Needs specialty teaching for cbg monitoring at home-will be using different monitor than our stock - Waiting for support person(s?) to be in state for all post-transplant teachings. Reported ly Saturday? - pending kidney recovery/newly starting dialysis andoff - Jesika Acevedo RN - 08/23/2019 6:26 PM PSTNursing Handoff Patient Daily Goal: walk more, manage leg swelling (08/22/19 0800) Patient Specific Preferences: Donell likes chocolate protein shakes, prefers to sit in recline r chair that can elevate his legs (08/18/19 0800) [facility] IP NURSE HANDOFF: Tamez hospital course events: PMX: history of ESLD 2/2 alcohol abuse complicated by hepatic encephalopathy, EtOH cirrhosis (MELD 34), spur cell anemia requiring chronic transfusions resulting in iron overload, afib w/ RvR on metop and amio, KAR on CKD, T2DM, EF 55-60% (low for hyperdynamics of cirrhosis) HPI: Pt initially presented this admission to [facility] upon transfer from OSH with decompensate d cirrhosis and metabolic encephalopathy, was managed by Internal Medicine prior to OR 08/15: liver tx, allograft cholecystectomy, reperfusion liver biopsy 11/2: Dialysis cath placement at bedside, first run of dialysis SAFETY Patient/Family Target: Donell will be oriented and call appropriately, no falls Progress to Target: Improving As evidenced by: Donell is A/Ox4 and calls appropriately. Although able to answer all orientation questions, at times his speech does ramble and fall off topic. Delirium improved. Falls risk. Monitor joyce losely. Donell has a hx of falls. Needs assistance getting legs back into bed d/t edema and help stand ing. Still somewhat overestimating his abilities regarding ability to safely get around. Is ambulating independently in the room using soprx-ri-kqksk contact and calling appropriately when he needs assistance. Needs close SBA when ambulating in the jordan with FWW. COMFORT/ANXIETY/BEHAVIOR Patient/Family Target: Donell will have adequate pain control Progress to Target: No Change As evidenced by: Most of Donell's discomfort is from scrotal swelling, but tolerable and improved from yester day. HYGIENE/INFECTION Patient/Family Target: Donell's skin will remain intact. Progress to Target: Deteriorating As evidenced by: - Some leaking from wound- mepilex used d/t pain with tape removal. - Several scattered skin tears. Take care to prevent shearing when Donell tries to scoot up in bed. - lots of bruising and fragile skin. Removed all tape with adhesive removed. Central line d ressing over very fragile skin, used cavilon. Removed carefully for changes. RESTORATIVE MEASURES/SELF-MANAGEMENT Patient/Family Target: Donell will ambulate in the hallway TID, be up in chair for meals, and increase his oral nut rition Progress to Target: Improving As evidenced by: Up with SBA. Legs very edematous and heavy. FALL RISK. Sat in chair for a few hours. Maryjo erated well. Oral intake improved. Adding protein supplement to meals. NURSING ASSESSMENT & RECOMMENDATIONS FORWARD Nursing Assessment of Patient Stability Risk: Moderately stable Recommendations Forward: - Seroquel available PRN. - CHG done 08/23. Will need daily with dialysis line. - keep legs elevated at all times and when up in chair. Legs wrapped in GABO wrap and gauze, bilateral legs and feet weeping. - Hold bowel meds. Donell has been having loose stools. Last bowel med given was Miralax morni ng of 08/20. Benefiber scheduled. - Dialysis line placed 08/22 - dialysis Saturday? - 2L fluid restriction, already at 1750 today, pt is aware Barriers to discharge: - needs lining baster consult to review Renal diet- pt ordering whoppers and fried chicken, family delivering - Needs specialty teaching for cbg monitoring at home-will be using different monitor than our stock - Waiting for support person(s?) to be in state for all post-transplant teachings. Reported ly Saturday? - pending kidney recovery/newly starting dialysis andoff - Me charlotte Tobias RN - 08/23/2019 3:24 PM PSTNursing Handoff Patient Daily Goal: walk more, manage leg swelling (08/22/19 0800) Patient Specific Preferences: Donell likes chocolate protein shakes, prefers to sit in recline r chair that can elevate his legs (08/18/19 0800) [facility] IP NURSE HANDOFF: Tamez hospital course events: PMX: history of ESLD 2/2 alcohol abuse complicated by hepatic encephalopathy, EtOH cirrhosis (MELD 34), spur cell anemia requiring chronic transfusions resulting in iron overload, afib w/ RvR on metop and amio, KAR on CKD, T2DM, EF 55-60% (low for hyperdynamics of cirrhosis) HPI: Pt initially presented this admission to [facility] upon transfer from OSH with decompensate d cirrhosis and metabolic encephalopathy, was managed by Internal Medicine prior to OR 08/15: liver tx, allograft cholecystectomy, reperfusion liver biopsy 08/22: Dialysis cath placement at bedside, first run of dialysis SAFETY Patient/Family Target: Donell will be oriented and call appropriately, no falls Progress to Target: Improving As evidenced by: Donell is A/Ox4 and calls appropriately. Although able to answer all orientation questions, at times his speech does ramble and fall off topic. Delirium improved. Falls risk. Monitor c losely. Donell has a hx of falls. Needs assistance getting legs back into bed d/t edema and help stand ing. Still somewhat overestimating his abilities regarding ability to safely get around. Is ambulating independently in the room using izswc-ir-sujdt contact and calling appropriately when he needs assistance. Needs close SBA when ambulating in the jordan with FWW. COMFORT/ANXIETY/BEHAVIOR Patient/Family Target: Donell will have adequate pain control Progress to Target: No Change As evidenced by: Most discomfort from scrotal swelling HYGIENE/INFECTION Patient/Family Target: Skin will remain intact Progress to Target: Deteriorating As evidenced by: - Some leaking from wound- mepilex used d/t pain with tape removal. - Several scattered skin tears. Take care to prevent shearing when Donell tries to scoot up in bed. - lots of bruising and fragile skin. Removed all tape with adhesive removed. Central line d ressing over very fragile skin, used cavilon. Removed carefully for changes. RESTORATIVE MEASURES/SELF-MANAGEMENT Patient/Family Target: Donell will ambulate in the hallway TID, be up in chair for meals, and increase his oral nut rition Progress to Target: Improving As evidenced by: Up with 1-2 person SBA. Legs very edematous and heavy. FALL RISK. A little unsteady and s haky but managed to get to bathroom and up to chair today. Tolerated well. Oral intake improved. Adding protein supplement to meals. NURSING ASSESSMENT & RECOMMENDATIONS FORWARD Nursing Assessment of Patient Stability Risk: Moderately stable Recommendations Forward: - Seroquel available PRN. - CHG done 08/23. Will need daily with dialysis line. - keep legs elevated at all times and when up in chair. Legs wrapped in GABO wrap and gauze, bilateral legs and feet weeping. - Hold bowel meds. Donell has been having loose stools. Last bowel med given was Miralax morni ng of 08/20. Benefiber scheduled. - Dialysis line placed 08/22 - dialysis Saturday? - 2L fluid restriction, already at 1750 today, pt is aware Barriers to discharge: - needs lining baster consult to review Renal diet- pt ordering whoppers and fried chicken, family delivering - Needs specialty teaching for cbg monitoring at home-will be using different monitor than our stock - Waiting for support person(s?) to be in state for all post-transplant teachings. Reported ly Saturday? - pending kidney recovery/newly starting dialysis lan of Jr Nolan - 08/23/2019 7:43 AM PST Problem: Nutrition Interventions Intervention: Food and nutrient distribution type or amount Note: Nutrition: Caloric Intake Analysis for 08/22/2019 48 Grams PROTEIN, 795 Calories. Figures represent foods eaten at 2 meals. Foods recorded as eaten in EPIC. Calorie count complete. 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 He is able to answer all orientation questions,but rambles at times and fall off topic. Donell is is using walker with stand by assist. He needs assistance with his Legs getting ba ck into bed d/t edema. Donell is noted to be overestimating his abilities when ambulating, sayi yong he doesn't need to use walker, and trying to walk backwards at times to get to the bed. E asily redirectable. RESTORATIVE MEASURES/SELF-MANAGEMENT Patient/Family Target: Donell will increase his oral nutritio Progress to Target: Improving HEALTH PROMOTION Patient/Family Target: Donell's edema will improve Progress to Target: Improving As evidenced by: BLE is elevated with 2 pillows due to +4 edema. Scrotum is elevated with wash cloth as we ll. BLE is wrapped with flex wrap NURSING ASSESSMENT & RECOMMENDATIONS FORWARD Nursing Assessment of Patient Stability Risk: Moderately unstable Recommendations Forward: - Seroquel available PRN. - Encourage OOB ambulation, bronchial hygiene, and nutrition. - YA site sutured but still leaky, requiring dressing change this shift. Barriers to discharge: Liver transplant pathway andoff - Sailaja Tobias RN - 08/22/2019 2:41 PM PDTNursing Handoff Patient Daily Goal: walk more, manage leg swelling (08/22/19 08) Patient Specific Preferences: Donell likes chocolate protein shakes, prefers to sit in recline r chair that can elevate his legs (08/18/19 08) [facility] IP NURSE HANDOFF: Tamez hospital course events: PMX: history of ESLD 2/ alcohol abuse complicated by hepatic encephalopathy, EtOH cirrhosis (MELD 34), spur cell anemia requiring chronic transfusions resulting in iron overload, afib w/ RvR on metop and amio, KAR on CKD, T2DM, EF 55-60% (low for hyperdynamics of cirrhosis) HPI: Pt initially presented this admission to [facility] upon transfer from OSH with decompensate d cirrhosis and metabolic encephalopathy, was managed by Internal Medicine prior to OR 08/15: liver tx, allograft cholecystectomy, reperfusion liver biopsy 08/22: Dialysis cath placement at bedside, first run of dialysis SAFETY Patient/Family Target: Donell will be oriented and call appropriately, no falls Progress to Target: Improving As evidenced by: Donell is A/Ox4 and calls appropriately. Although able to answer all orientation questions, at times his speech does ramble and fall off topic. Intermittently delirious. Falls risk. Mo nitor closely. Donell has a hx of falls. Needs assistance getting legs back into bed d/t edema and help stand ing. Still somewhat overestimating his abilities regarding ability to safely get around. Is ambulating independently in the room using ntnye-lv-qhzet contact and calling appropriately when he needs assistance. Needs close SBA when ambulating in the jordan with FWW. COMFORT/ANXIETY/BEHAVIOR Patient/Family Target: Donell will have adequate pain control Progress to Target: No Change As evidenced by: Most discomfort from scrotal swelling HYGIENE/INFECTION Patient/Family Target: Skin will remain intact Progress to Target: Deteriorating As evidenced by: - Leaky sutured YA site. Dressed with fluff and small abd pad, then all covered with larg e abd pad and abdominal binder. Using Cavilon skin prep before applying tape to keep pads in place. - Chevron incision dressing removed and incision cleansed with white wipes. Per MD, ok to l eave open to air. - Several scattered skin tears. Take care to prevent shearing when Donell tries to scoot up in bed. RESTORATIVE MEASURES/SELF-MANAGEMENT Patient/Family Target: Donell will ambulate in the hallway TID, be up in chair for meals, and increase his oral nut rition Progress to Target: Improving As evidenced by: Up with 1-2 person SBA. Legs very edematous and heavy. FALL RISK. A little unsteady and s haky but managed to get to bathroom and up to chair today. NURSING ASSESSMENT & RECOMMENDATIONS FORWARD Nursing Assessment of Patient Stability Risk: Moderately stable Recommendations Forward: - Seroquel available PRN. - Try to get a shower when possible. Unable to today 08/22 did get CHG wipe pre procedure. W ill need daily with dialysis line. - keep legs elevated at all times and when up in chair. Legs wrapped in GABO wrap and gauze, bilateral legs and feet weeping - Hold bowel meds. Donell has been having loose stools. Last bowel med given was Miralax morni ng of 08/20. Benefiber scheduled. - Dialysis line placed 08/22 - to dialysis this afternoon Barriers to discharge: - Needs specialty teaching for cbg monitoring at home-will be using different monitor than our stock - Waiting for support person(s?) to be in state for all post-transplant teachings. Reported ly Saturday? - pending kidney recovery/newly starting dialysis lan of Jr Nolan - 08/22/2019 9:45 AM PDT Problem: Nutrition Interventions Intervention: Food and nutrient distribution type or amount Note: Nutrition: Caloric Intake Analysis for 08/21/2019 64 Grams PROTEIN, 1,046 Calories. Figures represent foods eaten at 2 meals. Includes 293 ml of Premier Protein. Foods recorded as eaten in EPIC. Will continue to follow. Meagan Lim DTR [id number] lan of Pravin Patterson, PT - 08/21/2019 8:20 PM PDTFormatting of this note might be different from the meloniea l. Problem: PT Goals- Adult Goal: Functional Mobility Goal Description Patient independent supine to sit to supine with use of bed features via log roll Patient independent sit to stand to sit with use of front wheeled walker from standard air Patient independent transfer bed to chair to bed with use of front wheeled walker Patient contact guard assistance gait with front wheeled walker 50 feet, gait speed 0.6m/s Patient performs 2 set(s) of 10 repetitions of shoulder elevation , elbow flexion and exten arjun , wrist flexion and extension , hand open and close , ankle pumps , heelslides , SAQ , hip abduction/addution . Patient without AROM deficits bilateral UEs and LEs in supine or sitting 08/05/19: Patient will score low risk of falls as measured by the DGI. Outcome: Gradual progress toward goal Physical Therapy 08/21/2019 8:20 PM Admit Date : 07/17/2019 Hospital Day: 35 Age : 54 y.o. Time in: 1600 Time out: 1625 Patient was seen for a total of 25 minutes of direct one on one skilled physical therapy wh ich included 25 minutes of therapeutic activities Brief Hospital Course: Doug Lawson is a 54 y.o. male with EtOH cirrhosis s/p OLTx on 08/16. He had a prolonged inpatient course prior to transplant; was deconditioned and mal nourished. He continues to do well with appropriate graft function. Increasing his nutrition and conditioning. As per MD notes,08/21/19 Past Medical History: Diagnosis Date Cirrhosis (HCC) CKD (chronic kidney disease) Status Update: feeding tube removed Relevant Precautions: Abdominal,fall risk Subjective: patient agreed to work with PT "I don't like these socks." Pain: with mobility 02/27 Objective: Patient received supine in bed, head of bed 45 degree,abdominal binder on, Patient performed supine to edge of bed - standby assist ,verbal cues for correct hand and feet placement,bed railing support, edge of bed - Patient performed bilateral lower extremity -hip flexion,long arc quads and a nkle toe movements -10 reps each- active range of motion Sit to stand with front wheeled walker- contact guard assistance, verbal cues for correct h and and feet placement, bed railing support, Patient ambulated 300 feet with front wheeled walker- contact guard assistance, antalgic ga it-right, reduced gait speed and step length, reciprocal gait pattern, safety education safe feet and walker distance, no loss of balance, no buckling of knee Standing- railing support- hip flexion, hip abduction, standing on toes and heels- 10 reps each, contact guard assistance Patient education on abdominal precautions,log roll,importance of ambulation with front whe eled walker,strategies to reduce edema bilateral. lower extremity Patient vitals stable pre and post therapy session,asymptoamtic Patient was left in chair,call pearson within reach and RN was notified [facility] BASIC MOBILITY Difficulty turning over in bed 3 - A Little - Minimal/Contact Guard Assist/Supervision Difficulty sitting/standing from chair w/ arms 3 - A Little - Minimal/Contact Guard Assist/ Supervision Difficulty moving from supine to sitting on edge of bed 3 - A Little - Minimal/contact Guar d Assist/Supervision Help needed moving from /to chair/wheelchair 3 - A Little - Minimal/Contact Guard Assist/S upervision Help needed walking in hospital room 3 - A Little - Minimal/Contact Guard assist/Supervisio n Help needed climbing 3-5 steps w/railing 1 - Unable to do/total assistance - Total/Dependen t Assist [facility] Basic Mobility Total Score 16 Assessment: Patient showed increased activity tolerance to ambulation in today's session.Gumaro becerril has bilateral lower extremity edema leading to impaired gait deviations.Patient has r educed strength bilateral lower extremity.Patient has reduced safety awareness, needs cues f or safety, risk for falls.Patient has fair standing dynamic balance, durable medical equipme nt- front wheeled walker, contact guard assistance. This patient has good rehabilitation potential to achieve stated goals and requires contin ued skilled physical therapy rehabilitation services - gait training ,neuromuscular re-educa tion,therapeutic activities to meet his goals. Interpretation of [facility] Short Form - Basic Mobility: CMS Modifier (G-Code) Score (in points) % of Functional Impairment, Limitation, or Restriction CN 6 100% impaired, limited, restricted CM 7-9 At least 80%, but less than 100% impaired, limited, or restricted CL 10-14 At least 60%, but less than 80% impaired, limited, or restricted CK 15-19 At least 40%, but less than 60% impaired, limited, or restricted CJ 20-22 At least 20%, but less than 40% impaired, limited, or restricted CI 23 At least 1%, but less than 20% impaired, limited, or restricted CH 24 0% impaired, limited, or restricted See care plan for goals. Updated Plan & Recommendations: ACTIVITY PLAN: *Nursing to re-assess per shift as needed.* - Lights on and curtains open during day hours. - Routine distance ambulation 3x/day with front wheeled walker and 1 person assist. - Up to chair 3 x/day for meals and as needed with front wheeled walker and [address] Discharge Recommendations: 24 hour supervision;Continued PT at next level of care DME needed at discharge: front wheeled walker RN was notified of discharge recommendations. Should this patient discharge from the hospital prior to the next physical therapy treatmen t, this note shall serve as the discharge summary. 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 Although able to answer all orientation questions, at times his speech does ramble and fall off topic. Donell has a hx of falls. Needs assistance getting legs back into bed d/t edema and help stand ing. Still somewhat overestimating his abilities regarding ability to safely get around. Is ambulating independently in the room using [id number] contact and calling appropriately when he needs assistance. Needs close SBA when ambulating in the jordan with FWW. COMFORT/ANXIETY/BEHAVIOR Patient/Family Target: Denies pain. Progress to Target: No Change As evidenced by: Slight discomfort around sutured drain site. PRN Tylenol given. HYGIENE/INFECTION Patient/Family Target: Skin will remain intact Progress to Target: Deteriorating As evidenced by: - Leaky sutured YA site. Dressed with fluff and small abd pad, then all covered with larg e abd pad and abdominal binder. Using Cavilon skin prep before applying tape to keep pads in place. - Chevron incision dressing removed and incision cleansed with white wipes. Per MD, ok to l eave open to air. - Several scattered skin tears. Take care to prevent shearing when Donell tries to scoot up in bed. RESTORATIVE MEASURES/SELF-MANAGEMENT Patient/Family Target: Donell will ambulate in the hallway TID, be up in chair for meals, and increase his oral nut rition Progress to Target: Improving As evidenced by: - Feeding tube removed around 1700 today. Since NPH was given at 1400, wants Q 2 hour CBG checks through 0330 to watch for hypoglycemia. Last check was with dinner and was 156. - Premier protein shakes in the fridge. - Hold bowel meds. Donell has been having loose stools. Last bowel med given was Miralax morni ng of 08/20. Benefiber scheduled. NURSING ASSESSMENT & RECOMMENDATIONS FORWARD Nursing Assessment of Patient Stability Risk: Moderately stable Recommendations Forward: - Seroquel available PRN. - Try to get a shower when possible. - Looking for a recliner so Donell can elevate LE when up in chair. Wants to remove JEANNETTE hose a t night with legs elevated in bed, but agrees to wear during the day. Barriers to discharge: - Needs specialty teaching for cbg monitoring at home-will be using different monitor than our stock - Waiting for support person(s?) to be in state for all post-transplant teachings. Reported ly Saturday? lan of Care - Fadia Coughlin RD - 08/21/2019 12:41 PM PDTFormatting of this note might be different from the or iginal. Intervention: Enteral Nutrition PO intake improving on a Diabetic diet. Calorie count ave (08/19-08/20): 897 kcals (37% of est kcal needs) and 58 gm protein (48% of est protein needs). Yesterday pt drank 2 1/2 cart ons of Premier protein shakes. Prealbumin improving. Loose BM x 7 yesterday, x1 so far tod ay. Benefiber added. Currently tolerating TF of Impact Peptide 1.5 @ 70 ml/hr which is pro viding 100% of est nutritional needs. Patient has likely met optimal benefit from immune enh ancing TF. Suggest TF formula change to Fibersource HN (which contains fiber) and also tierney e to a nocturnal cyclic regimen to encourage PO intake during the day. Nutrition Diagnosis (per RD note 07/21):Pt meets the following criteria suggesting:Sever e protein-calorie malnutrition Energy intake:<75% energy intake compared to energy requirementfor > 1 mo(resolved) Depletion of fat stores:moderate(orbital) Depletion of muscle mass:severe(catholic, shoulder, scapula, clavicle) Fluid accumulation:severe(ascites and significant edema in BLE at least to knee) Rec: -Change TF to Fibersource HN (standard formula 1.2 julia/ml in EPIC) @ 90 mL/hr x 12 hr/day ( providing 1080 mL, 1296 kcals, 58 gm protein, 177 gm carbs, 16 gm fiber, 875 mL useable flui d) which will provide ~50% of est nutritional needs - Continue 80 ml Kefir TID for probiotic benefits - Free water flushes 100 mL 3x/day - monitor fluid status and adjust accordingly - Monitor abd exam/stooling pattern/N/V for signs of intolerance - Can d/c Benefiber as new TF contain fiber - Continue Diabetic diet - CBG monitoring, insulin adjustment - Continue Calorie count x more 3 days to assist in tapering TF once PO intake is signific ant - Continue chocolate Premier protein (5 gm carb, 30 gm protein) shakes at meals Intervention: Nutrition Education Patient educated as below on Diabetic diet. Will provide post-liver transplant diet educat ion prior to discharge. (08/13) Met with patient and family members today to begin diabetes nutrition education. Si ster and mom will be here until Saturday before heading back to [place]. They plan to return an d help care for patient for a while after discharge. They've done the grocery shopping for h im in the past and are familiar with reading labels and things that patient should limit or avoid with regards to sodium content. At home, Donell doesn't eat consistent meals generally pr eferring to skip breakfast and lunch. He very much enjoys Gatorade. Has switched to Diet sod a. We discussed consistent meal times, limiting sweetened beverages and other simple carb fo ods, portion control. They want to review materials I left for them and then reach out with follow up questions. I also encouraged outpatient follow up and team plans to place a referr al prior to discharge. Intervention: Coordination of Nutrition Care Acceptable for discharge from a nutrition perspective pending the following: - Greater than 50% of 2-3 meals/day - Minimum of 2,000 ml fluid PO intake or per team discretion - If the above goals are not met prior to discharge, follow-up with outpatient dietitian to better assess PO intake improvement - Completion of post-transplant nutrition education Following, Fadia Verduzco, MS, RD, LD Pager #[phone] Admitting Dx:Doug Lawson is a 54 y.o. 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 after presenting there with AMS, R knee trauma due to a fall, hyperglycemia, renal insufficiency. S/p OLT (08/16) Food allergies/intolerances:none noted Diet order:Diabetic Oral Supplements: chocolate Premier protein shakes TID Tube Feeding: Impact Peptide 1.5 @ 70 ml/hr x 24 hr Pertinent Meds:vit D3 50,000 units once weekly,lispro, albumin, mycophenolate, prilosec , methylprednisolone, tacrolimus, Magen's kefir Zinc supplementation completed 08/08 Loose BM x 1 so far today, x7 (08/20) Skin:jaundiced,3+ pitting edema to mid delgadillo Chemistries: Last 72 Hours (or 3 results) - Refreshable Recent Labs 08/19/19 0624 08/20/19 0609 08/21/19 0658 08/21/19 0737 08/21/19 1252 NA 140 -- 137 -- 132* -- -- K 4.8 -- 4.8 -- 4.6 -- -- CL 108 -- 108 -- 102 -- -- BICARB 22 -- 21 -- 23 -- -- BUN 97* -- 107* -- 129* -- -- EGFRAFRICAN 39* -- 34* -- 34* -- -- CR 2.17* -- 2.41* -- 2.40* -- -- GLU 140* < > 160* < > 223* 201* 205* CA 8.2* -- 8.5* -- 8.7 -- -- MG 2.7* -- 2.7* -- 2.5 -- -- PO4 6.8* -- 5.4* -- 5.0* -- -- < > = values in this interval not displayed. Prealbumin: 10.1 (08/17), 23.0 (08/20) Lab Results Component Value Date [id number] 19.9 04/21/2019 Lab Results Component Value Date ZINC 31.0 04/23/2019 Lab Results Component Value Date A1C 8.1 (H) 07/17/2019 *A1C not accurate due to hx of frequent transfusions 04/21/2019: retinol 0.21 mg/L (L) would not supplement vitamin A at this point. Possibly falsely low due to reduced hepatic s ynthesis of RBP by diseased liver. Would consider supplementation if retinol <0.15 04/23/2019: MMA 0.34 umol/L, serum copper 72.8 ug/dL CBG Result Av Min: 201 Max: 364 Ht: 71" Current wt: 103.9 kg (standing 08/20) Dosing Wt: 81.6 kg BMI: 25.1 kg/m2 Estimated Nutrition Needs post OLT: 7747-6402 kcals (30-35 kcal/kg), 122-163 gm protein (1. 5-2.0 gm/kg) Wt Readings from Last 8 Encounters: 08/20/19 103.9 kg (229 lb 0.9 oz) 09/16/19 88.1 kg (194 lb 3.2 oz) 05/20/19 88.2 kg (194 lb 6.4 oz) 05/20/19 88 kg (194 lb) 05/18/19 88.9 kg (196 lb) 04/24/19 86.2 kg (190 lb 0.6 oz) 04/21/19 83.9 kg (185 lb) 04/21/19 84.4 kg (186 lb) lan of Meagan Nolan - 08/21/2019 8:52 AM PDT Problem: Nutrition Interventions Intervention: Food and nutrient distribution type or amount Note: Nutrition: Caloric Intake Analysis for 08/20/2019 89 Grams PROTEIN, 1,019 Calories. Figures represent foods eaten at 3 meals, and 2 snacks. I ncludes 650 ml of Premier Protein. Foods recorded as eaten in EPIC. Will continue to follow. Meagan Lim DTR [id number] rian - Mario Alberto Pereira RN - 08/21/2019 2:44 AM PDTNursing Handoff Patient Daily Goal: Ambulation, PO intake (08/20/19 0746) Patient Specific Preferences: Donell likes chocolate protein shakes, prefers to sit in recline r chair that can elevate his legs (08/18/19 0800) [facility] IP NURSE HANDOFF: T[facility] hospital course events: PMX: history of ESLD 2/2 alcohol abuse c omplicated by hepatic encephalopathy, EtOH cirrhosis (MELD 34), 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 resulting in iron overload, afib w/ RvR on metop and amio, KAR on CKD, T 2DM, EF 55-60% (low for hyperdynamics of cirrhosis) HPI: Pt initially presented this admission to [facility] upon transfer from [facility] with decompensate d cirrhosis and metabolic encephalopathy, was managed by Internal Medicine prior to OR 08/15: liver tx, allograft cholecystectomy, reperfusion liver biopsy SAFETY Patient/Family Target: Donell will be oriented and call appropriately, no falls Progress to Target: Improving As evidenced by: Donell is A/Ox4 and calls appropriately. Although able to answer all orientation questions, at times his speech does ramble and fall off topic. Donell has a hx of falls. Currently using a walker and SBA to get from chair to bed. Needs ass istance getting legs back into bed d/t edema and help standing. Per report, he has been over estimating his abilities when ambulating, saying he doesn't need to use walker, and trying t o walk backwards at times to get to the bed. Easily redirectable. RESTORATIVE MEASURES/SELF-MANAGEMENT Patient/Family Target: Donell will ambulate in the hallway TID, be up in chair for meals, and increase his oral nut rition Progress to Target: Improving As evidenced by: Donell is up in his room with 1PA to and from the bathroom. He was up in the chair for breakfast and dinner, and didn't eat lunch. Ate his dinner witho ut issues and has been looking forward to ordering breakfast Endotool DC'd 08/20. CBGs elevated at dinner, Donell stated he had "a couple milkshakes" durin g the afternoon. TF rate decreased to 70 ml/hr and will transition to 12 hr runs tomorrow, per [place]. Bowel med s held as he has been having loose stools. Continues to use IS and cough/deep breath, but needs encouragement. HEALTH PROMOTION Patient/Family Target: Donell will verbalize and demonstrate understanding of how/when to check blood sugars and ho w/when to administer insulin Progress to Target: No Change As evidenced by: No teaching given today on insulin administration. Donell reports he had several weeks of "t raining" during his pre-transplant hospital stay. NURSING ASSESSMENT & RECOMMENDATIONS FORWARD Nursing Assessment of Patient Stability Risk: Moderately unstable Recommendations Forward: - Seroquel available PRN. - Hold bowel meds. Donell has been having loose stools, somewhat slowing down this evening - Encourage OOB ambulation, bronchial hygiene, and nutrition. - YA site sutured but still leaky, requiring several dressing changes per shift. Needing mu ltiple abd pads and gauzes to keep drainage from soiling his abd binder and gown. - Try to get a shower when possible. Barriers to discharge: - Needs specialty teaching for cbg monitoring at home-will be using different monitor than our stock - Waiting for support person(s?) to be in state for all post-transplant teachings. Reported ly Saturday? andoff - Chan Dickens RN - 08/20/2019 6:11 PM PDTNursing Handoff Patient Daily Goal: Ambulation, PO intake (08/20/19 0746) Patient Specific Preferences: Donell likes chocolate protein shakes, prefers to sit in recline r chair that can elevate his legs (08/18/19 0800) [facility] IP NURSE HANDOFF: T[facility]z hospital course events: PMX: history of ESLD 2/2 alcohol abuse c omplicated by hepatic encephalopathy, EtOH cirrhosis (MELD 34), 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 resulting in iron overload, afib w/ RvR on metop and amio, KAR on CKD, T 2DM, EF 55-60% (low for hyperdynamics of cirrhosis) HPI: Pt initially presented this admission to [facility] upon transfer from [facility] with decompensate d cirrhosis and metabolic encephalopathy, was managed by Internal Medicine prior to OR 08/15: liver tx, allograft cholecystectomy, reperfusion liver biopsy SAFETY Patient/Family Target: Donell will be oriented and call appropriately, no falls Progress to Target: Improving As evidenced by: Donell is A/Ox4 and calls appropriately. Although able to answer all orientation questions, at times his speech does ramble and fall off topic. Donell has a hx of falls. Currently using a walker and SBA to get from chair to bed. Needs ass istance getting legs back into bed d/t edema and help standing. He is overestimating his dorene lities, saying he doesn't need to use walker, and trying to walk backwards at times to get t o the bed. He is redirectable and is ultimately cooperative with RN requests via safety. RESTORATIVE MEASURES/SELF-MANAGEMENT Patient/Family Target: Donell will ambulate in the hallway TID, be up in chair for meals, and increase his oral nut rition Progress to Target: Improving As evidenced by: Donell walked 100 feet with RN and one loop around unit with PT. He needs to walk in halls o nce more before bed tonight. He has been up to the 6-7 times. He was up in the chair for breakfast and dinner, and didn't eat lunch. Endotool DC'd around noon today Appetite has improved. TF rate decreased to 70 ml/hr and will transition to 12 hr runs saeed rrow, per TX. Is now having loose stools. Benefiber added, HOLD BOWEL MEDS TONKIMANI Will perform IS, but needs encouragement. HEALTH PROMOTION Patient/Family Target: Donell will verbalize and demonstrate understanding of how/when to check blood sugars and ho w/when to administer insulin Progress to Target: No Change As evidenced by: No teaching given today on insulin administration. Donell reports he had several weeks of "t raining" during his pre-transplant hospital stay. NURSING ASSESSMENT & RECOMMENDATIONS FORWARD Nursing Assessment of Patient Stability Risk: Moderately unstable Recommendations Forward: - Seroquel available PRN - Hold bowel meds - Encourage OOB ambulation, bronchial hygiene, and nutrition - YA site sutured but still leaky, requiring several dressing changes per shift - Try to get a shower when possible. Barriers to discharge: -Needs specialty teaching for cbg monitoring at home-will be using d ifferent monitor than our stock - Waiting for support person(s?) to be in state for all post-transplant teachings. Reported ly Saturday? lan of Care - Liv Borges, PT - 08/20/2019 5:16 PM PDTFormatting of this note might be different from the o riginal. Physical Therapy 08/20/2019 5:16 PM Time in: 1640 Time out: 1711 Hospital Day: 34 Patient was seen on 4A. Present during session other than PT and patient: registered nurse to assist with lele tiexeira Patient was seen for a total of 31 minutes of direct one on one skilled Physical Therapy wh ich included 31 minutes of therapeutic activity. Brief Hospital Course: Doug Kirkkathydwight 54 y.o. s/p OLTx on 08/16 for ESLD2/2alcoho l abuse complicated by hepatic encephalopathy, spur cell anemia requiring chronic transfusio ns resulting in iron overload, afib, and KAR on CKD. Pt admitted on 07/17/2019 and optimized with DHT placement due to encephalopathy. (per GUMARO Chakraborty 08/20/19) Status Update: no acute changes Relevant Precautions: Abdominal Subjective: Patient declines opportunity to practice log roll, plans to sleep in recliner. Pain: controlled Vital Signs: stable based on observation, no shortness of breath/lightheadedness/dizziness Objective: Patient received in supine, agrees to therapy. Attempted log roll, patient declines as above. Patient transferred to sitting with head of bed elevated and moderate assist for trunk to m aintain precautions. Patient transferred to standing with supervision, donned abdominal binder with assist to ysical therapist and registered nurse. Patient ambulated 185 ft with front wheeled walker with close supervision. Patient ambulate d with path deviation, inconsistent foot placement, and trunk instability. Patient often amb ulating too far for walker, or slightly to left/right of walker requiring cuing for safety. No gross loss of balance. Returned to room and patient was looking for "candy" in room. Patient would often leave fro nt wheeled walker, twisting to look around room. Patient required cuing for "no twisting" ab dominal precautions. Patient also required cuing for walker management and environment safet y. Patient returned to supine with moderate assist for lower extremity due to not wanting to p erform log roll. Educated on safety concerns of walker and environment management. [facility] BASIC MOBILITY Difficulty turning over in bed 3 - A Little - Minimal/Contact Guard Assist/Supervision Difficulty sitting/standing from chair w/ arms 3 - A Little - Minimal/Contact Guard Assist/ Supervision Difficulty moving from supine to sitting on edge of bed 3 - A Little - Minimal/contact Guar d Assist/Supervision Help needed moving from /to chair/wheelchair 3 - A Little - Minimal/Contact Guard Assist/S upervision Help needed walking in hospital room 3 - A Little - Minimal/Contact Guard assist/Supervisio n Help needed climbing 3-5 steps w/railing 1 - Unable to do/total assistance - Total/Dependen t Assist [facility] Basic Mobility Total Score 16 Ended session: Patient left in supine with call pearson within reach and RN updated. ASSESSMENT: Patient with improving activity tolerance and ambulation distance. Patient does continue to require cuing for adhere to abdominal precautions and for safety concerns such as walker management. Patient educated on need for assistive device due to gait and balance deficits. Patient also educated that post-op mobility will not equal pre-op mobility of bein g ability to perform stairs easily or walking without walker. Patient understanding of safet y concerns. Patient would benefit from continued therapy to increase safety and independence . This patient has good rehabilitation potential to achieve stated goals (see Care Plan for g oals) and requires continued rehabilitation services, given the patient's treatment is at a level of complexity or sophistication requiring the skills of a therapist. Problem: PT Goals- Adult Goal: Functional Mobility Goal Description Patient independent supine to sit to supine with use of bed features via log roll Patient independent sit to stand to sit with use of front wheeled walker from standard ch air Patient independent transfer bed to chair to bed with use of front wheeled walker Patient contact guard assistance gait with front wheeled walker 50 feet, gait speed 0.6m/s Patient performs 2 set(s) of 10 repetitions of shoulder elevation , elbow flexion and exten arjun , wrist flexion and extension , hand open and close , ankle pumps , heelslides , SAQ , hip abduction/addution . Patient without AROM deficits bilateral UEs and LEs in supine or sitting 08/05/19: Patient will score low risk of falls as measured by the DGI. Outcome: Gradual progress toward goal Plan: ACTIVITY PLAN: *Nursing to re-assess per shift as needed.* - Lights on and curtains open during day hours. - Up to chair for meals or 3x/day with 1 person assist. - Routine short distance ambulation in hallway 3x/day with front wheeled walker and 1 perso n assist. DISCHARGE: RECOMMENDATIONS: 24 hour supervision;Continued PT at next level of care DME: front wheeled walker Next physical therapy session: Patient will be seen 5 times per week for focus on gait, tra nsfers, safety. Liv García DPT Should this patient discharge from the hospital prior to the next physical therapy treatmen t, this note shall serve as the discharge summary. lan of Care - Erick Bajwaandra - 08/20/2019 10:09 AM PDTFormatting of this note might be different from the orig inal. Occupational Therapy Re-Evaluation [id number] DOUG LAWSON Date of : 1965 Start of care: 07/17/2019 Date of onset: 07/17/2019 Referring/Attending Practitioner: Marsha Garcia MD Primary/Referral Diagnosis/ICD-9: K70.31 Alcoholic cirrhosis of liver with ascites (HCC) I47.1 SVT (supraventricular tachycardia) (HCC) Insurance: Payor: [facility] [place] / Plan: [facility] / Product Type: Medicaid / Service period from: 08/20/2019 to 11/18/2019 Time in: 0914 Time out: 1003 Pt admitted on 07/17/2019, hospital day # 34. Pt seen on: 4A Precautions: abdominal, fall risk, decreased insight Indication for Occupational Therapy Re-Evaluation: Pt now s/p OLTx Brief Hospital Course: Per PA note, "Doug Lawson 54 y.o. 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 Pt admitted on 07/17/2019 and optimized with DHT placement due to encephalopathy" Procedures: 08/16/19: OLTx Present in Session: Patient Only Pt/family occupational goals: To go home Analysis of Occupational Performance New living environment: pt states his family has purchased him a home near [facility] where he will be staying with his mom and sister. All he knows about the home is that it is a sing le level home Vitals: Stable as per observation Pain: Did not report Cognitive skills Orientation: Ox4 Level of alertness: Awake and alert Insight: Fair, needs reminders for safety Memory: Fair Attention: Good Command following: Able to follow multi-step commands with increased processing time CAM: Negative Emotional regulation and social skills: Appropriate Motor and praxis skills Hand Dominance: NT UE joint integrity with passive range of motion - Left: WFL - Right: WFL UE strength - Left: WFL - Right: WFL Fine motor control: WFL Muscle tone: Intact Edema: Moderate in BLE Skin Integrity: Incision not visualized Postural alignment: WFL Sensory perceptual skills Vision: WFL Auditory: Responds to auditory stimuli Proprioception: Intact Tactile: Reports Functional performance skills [facility] DAILY ACTIVITY - How much help from another person does the patient currently need f or: Lower body dressing 2 - Alot Bathing 2 - Alot Toileting 3 - Little Upper body dressing 3 - Little Personal grooming 3 - Little Eating meals 3 - Little AMPAC Daily Activity Total Score 16 1 - Unable to do/total assistance = Total/Dependent Assist 2 - A lot = Maximum/Moderate Assistance 3 - A little = Minimal/Contact Guard Assist/Supervision 4 None = Modified independent/Independent Interpretation of AMPA Short Form Daily Activity: CMS Modifier (G-Code) Score (in points) % of Functional Impairment, Limitation, or Restriction CN 6 100% impaired, limited, restricted CM 7-9 At least 80%, but less than 100% impaired, limited, or restricted CL 10-14 At least 60%, but less than 80% impaired, limited, or restricted CK 15-19 At least 40%, but less than 60% impaired, limited, or restricted CJ 20-22 At least 20%, but less than 40% impaired, limited, or restricted CI 23 At least 1%, but less than 20% impaired, limited, or restricted CH 24 0% impaired, limited, or restricted Functional Transfer & Mobility: Supine to sit: Min assist Sit to stand: standby assist + FWW Transfer to chair: standby assist + FWW Ambulation with ADLs: standby assist + FWW Treatment Provided Education on abdominal precautions, pt recalls 1/3. Education on compensatory strategies fo r lower body dressing. Pt unable to come to cross-legged position due to bilateral lower ext remity edema. Completed oral hygiene and grooming standing at sink, tolerated ~10 min. Pt re quired cues to maintain walker in front while ambulating to bathroom, attempted to walk back wards into bathroom, difficulty comprehending why it was a safety concern. Ended session: Patient left in bed, supine, call button in reach and nursing present. Assessment Pt being re-evaluated following an OLTx. Now presenting with improved cognition, however, r emains limited by by decreased safety awareness and delay in processing skills. Pt needing s tandby assist for out of bed ADLs due to balance deficits, and decreased activity tolerance. Will continue to benefit from acute OT services to increase independence with ADLs and func tional mobility. ACTIVITY/ENVIRONMENTAL RECOMMENDATIONS: *Nursing to re-assess per shift as needed.* - lights on, curtains open - out of bed as tolerated - in chair for all meals or 3x/day Environmental/Spatial Awareness: Highly Structured Environment: Minimal Distraction - Always cue patient before touching them - For safe transfers: Set up environment, instruct on steps and assist required - Post signage at bedside for orientation - Establish functional routine and activity, be consistent - Utilize home preferences if able - Allow increased time for patient to respond to questions - Gentle redirection, use repetition to increase patient s awareness - Identify problems and priorities for patient and give limited choice of solutions - Limit amount of responsibilities given to patient - Reinforce positive behavior and engagement in care DISCHARGE RECOMMENDATIONS: 24 hour supervision;Home with assist PRN EQUIPMENT RECOMMENDATIONS: shower chair GOALS: Problem: OT Goals- Adult Goal: Other Goal Description Patient will complete UB grooming while standing with independence Patient will complete perineal care independently Patient will be AAOx4 during session Patient will demonstrate correct sequence for out of bed mobility transfers New goals 08/20 Pt will be modified independent with lower body dressing using adaptive equipment as needed . Pt will be independent with logroll to/from edge of bed for ADL engagement. Outcome: Gradual progress toward goal Plan: - Planned Frequency: 3x/wk (10/23) - Duration: 2 weeks Time in: 913 Time out: 1003 Patient was seen for an OT re-evaluation and a total of 39 minutes of direct one on one ski lled OT treatment which included: - ADL Trainin minutes The patient requires services that can be safely and effectively performed only by a qualif ied therapist to address the aforementioned and highlighted problems and goals. Goals discussed and agreed upon with Doug and family. Sharyn Bajwa OTR/L Pager #[phone] lan of Care - iNcole Lobo - 08/20/2019 9:05 AM PDT Problem: Nutrition Interventions Intervention: Food and nutrient distribution type or amount Note: Nutrition: Caloric Intake Analysis for 08/19/2019 26 Grams PROTEIN, 774 Calories. Figures represent foods eaten at 3 meals. Includes 60 ml of Ensure Compact. Foods recorded as eaten in EPIC. Will continue to follow. 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 Although able to answer all orientation questions , at times his speech does ramble and fall off topic. Donell has a hx of falls. Currently using a walker and SBA to get from chair to bed. Needs ass istance getting legs back into bed d/t edema and help standing. RESTORATIVE MEASURES/SELF-MANAGEMENT Patient/Family Target: Donell will walk and sit in chair tid Progress to Target: Improving As evidenced by: Donell walked with PT during previous day shift - he needed several breaks; sat in chair 3x with legs elevated. Donell will tell staff when he is ready to be back in bed. NURSING ASSESSMENT & RECOMMENDATIONS FORWARD Nursing Assessment of Patient Stability Risk: Moderately unstable Recommendations Forward: - Cont to encourage OOB activity, breathing exercises(prefers coug h and deep breathe), good nutrition - Endotool until at least 0800 08/20/19. Glargine and NPH ordered and started evening of . Plan is to give 2nd dose of NPH 08/20 AM and take pt off endotool if CBG's stable - Plan for YA to be removed today 08/20/19. He required many dressing changes and has copio us amounts of drainage leaking from site. Team aware. - Donell likes chocolate protein shakes-if he doesn't feel hungry for a meal he is open to at least eating these - Donell is on a calorie count. - Abdominal binder on for mobilization efforts, recliner w foot support when up in chair. -Donell took ordered Seroquel for tonight and it helped. Recommend continuing tonight- There is a scheduled and prn dose available. Barriers to discharge: -Needs specialty teaching for cbg monitoring at home-will be using d ifferent monitor than our stock -Transition off endotool - Pt at goal (75ml/hr) for TF andoff - Jenifer Rader R N - 08/19/2019 6:45 PM PDTNursing Handoff Patient Daily Goal: sleep at night (08/18/19 2300) Patient Specific Preferences: Donell likes chocolate protein shakes, prefers to sit in recline r chair that can elevate his legs (08/18/19 0800) [facility] IP NURSE HANDOFF: Tamez hospital course events: PMX: history of ESLD 2/2 alcohol abuse c omplicated by hepatic encephalopathy, EtOH cirrhosis (MELD 34), 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 resulting in iron overload, afib w/ RvR on metop and amio, KAR on CKD, T 2DM, EF 55-60% (low for hyperdynamics of cirrhosis) HPI: Pt initially presented this admission to [facility] upon transfer from OSH with decompensate d cirrhosis and metabolic encephalopathy, was managed by Internal Medicine prior to OR 08/15: liver tx, allograft cholecystectomy, reperfusion liver biopsy SAFETY Patient/Family Target: Donell will be oriented and call appropriately, no falls Progress to Target: Improving As evidenced by: Donell has a hx of falls-he was slurring speech and a little confused conversation-jokey at beginning Of shift-his humor continued but his speech improved and so did his clarity; he i s oriented and appropriate, 1 pa with walker mostly due to swollen legs and lines, no falls this shift, he does have to take breaks for activity RESTORATIVE MEASURES/SELF-MANAGEMENT Patient/Family Target: Donell will walk and sit in chair tid Progress to Target: Improving As evidenced by: Donell walked with PT-needed several breaks; sat in chair 3x today with legs elevated NURSING ASSESSMENT & RECOMMENDATIONS FORWARD Nursing Assessment of Patient Stability Risk: Moderately unstable Recommendations Forward: - Cont to encourage OOB activity, breathing exercises(prefers coug h and deep breathe), good nutrition -Endotool-due next at 1930 -Plan for YA to come out tomorrow-pt required 3 dressing changes for drainage leaking large ly around the ya site-received albuminx1 - Donell likes chocolate protein shakes-if he doesn't feel hungry for a meal he is open to at least eating these - Donell is on a calorie count. - Abdominal binder on for mobilization efforts, recliner w foot support when up in chair. -Donell took ordered Seroquel for tonight and it helped. Recommend continuing tonight- There is a scheduled and prn dose available. Barriers to discharge: -Needs specialty teaching for cbg monitoring at home-will be using d ifferent monitor than our stock -Transition off endotool; just reached max TF at 1700 tonight p Note - Marsha Garcia MD - 08/19/2019 2:54 PM PDTDate of Service: 08/16/2019 Attending Surgeon:Marsha Garcia MD Silverware Buffer(s): Bailee Ken MD Preoperative Diagnosis: End-stage liver disease. Postoperative Diagnosis: End-stage liver disease. Procedures: 1.Back bench preparation of liver allograft. 2.Liver transplantation. 3.Donor cholecystectomy. 4.Reperfusion biopsy. Indications For Procedure: The patient is a 54-year-old gentleman with alcohol-related cir rhosis complicated by encephalopathy, ascites, recent renal insufficiency, and failure to th rive, who was seen and evaluated by our multidisciplinary team and thought to be a reasonabl e candidate for liver transplantation. He remained on the waiting list until a suitable don or became available. At that time, the risks and benefits of liver transplant were reviewed by me, including the Public Health Service Increased Risk of the donor and risk of disease transmission, and informed consent was signed in the presence of his mother and sister who a re in support. Anesthesia: General. Relevant Donor Details: 1.UNOS ID: [id number]. 2.Donor clamp on at 08/15/2019 at 7:59 p.m. 3.Organ in the room at 11 p.m. 4.Clamp of hepatic artery at 1:45. 5.Clamp of portal vein at 2:25. 6.Clamp of IVC at 3:38. 7.Recipient liver out at 3:23. 8.Anastomosis start at 3:41. 9.Portal clamp off at 4:17. 10.Arterial clamp off at 5:05. 11.Biliary anastomosis complete at 6:56. 12.Standard arterial anatomy. 13.Splenic artery branch patch to GDA branch patch was created. Iv Fluids: 4 L of crystalloid, 6 PRBCs, 484 of autologous, 3 of FFP, 1 of platelets. Urine Output: 1040. Ischemia Times: 1.Cold ischemia time 7 hours 42 minutes. 2.Warm ischemia time 36 minutes. Other Relevant Findings: Significant duct mismatch of a nearly 3:1 ratio, recipient greate r than donor. Description Of Procedure: Patient was brought to the operating room after informed consent was signed. General anesthesia was administered. All lines and tubes were being performed while back bench preparation of the liver allograft was performed. When the liver arrived, donor recipient ABO and UNOS ID were verified. The liver was taken out and inspected. The diaphragm was trimmed to the level of the cava. The caudate was mobilized and oversewn wit h a 4-0 Prolene. The upper cava was oversewn with a 4-0 Prolene x2, and the lower cava was then stapled off with a EB stapler after flushing to check for leaks. Dissected the artery to the level of the GDA and the portal to the level of left and right, and then the liver w as placed back into its preservation solution until time of implantation. After that time, anesthesia was done, so the patient was then prepped and draped in the usual sterile fashion . A sheet rock taper-out was performed, including donor recipient ABO, UNOS ID, as well as immunos uppression and antibacterial prophylaxis. We then performed a bilateral subcostal incision with electrocautery down to the level of t he fascia, as well as a midline extension. We entered the abdomen. No ascites was really t here to be evacuated. We divided the falciform between 2-0 silk ties. We took the falcifor m down to the level of hepatic veins. The left triangular ligament was mobilized with elect rocautery. The gastrohepatic ligament was entered. We took this with clips toward the brooke lauren side. We then placed the Irchmond retractor in. The gallbladder was profoundly distend ed, so I did make a hole in the gallbladder purposely with electrocautery to help facilitate portal dissection, evacuated the bile, then oversewed this with a 2-0 silk tie. We dissect ed the portal. We took the left and right hepatic arteries separately between 2-0 silk ties . The cystic duct was divided between 2-0 silk ties, as well as common hepatic duct, and th en freed the portal from its periportal tissue. We mobilized the right triangular ligament with electrocautery and then started to take the caudate off the IVC with a series of clips and ties. There was a very large inferior accessory right hepatic vein that was taken with a EB stapler. The remainder of the caudate was taken with a series of clips and ties to th e left and middle, as well as the right hepatic veins were taken with a EB stapler. Just p rior to this, the portal was taken with a EB stapler. The lobe of the liver was then passe d off the field. The new liver was brought onto the field. We flushed the liver with 6 bags of 500 mL of He span after making a venotomy in the posterior cava. We then placed a partially occluding cl amp on the recipient IVC and made a venotomy with an 11 blade. We then brought the liver an d did a cavocavostomy with a 3-0 Prolene. We re-righted the liver, place several icy cold l aps behind the liver, and dissected then the portal vein of the donor recipient back to allo w for adequate tension and did a [id number] anastomosis with 6-0 Prolene. We then rep erfused with little hemodynamic change. During the hepatectomy, there were periods of time that the patient had PACs as well as PVCs. After reperfusion, there were periods of time of wide-complex tachycardia, but with no hemodynamic change that would last for several screen runs. The patient had been bolused with magnesium and calcium, as well as given some addit ional amiodarone since the evening dose had been held. We worked toward the artery. We dis sected the artery back to the level of the GDA and made a GDA branch patch. We flushed the artery with heparinized saline and placed a bulldog and then did a splenic artery branch pat ch to GDA branch patch with a 6-0 Prolene x1. We then reperfused the artery with good flow. We achieved hemostasis. We took the gallbladder down in a top-down fashion with electroca utery. The cystic artery was divided sharply with good flow, and then this was tied off wit h a 2-0 silk tie. The cystic duct was divided between a 2-0 silk tie. The left lateral sec tion was taken with a Chema-Cut biopsy and hemostasis was achieved with an argon beam. We the n trimmed the donor recipient bile duct back. We placed a duct probe through the CBD to chad e sure that there was no distal obstruction. Given the size discrepancy, the recipient bile duct was oversewn by about half with a 6-0 PDS and then we did an end-to-end anastomosis wi 6-0 PDS x3. We placed a YA in the right upper quadrant and then closed the fascia in 2 l walls. Skin was closed with katiuska. Toward the end of the case, there was 1 needle that had left the field and was getting plac ed on the back table that had bounced off. Plan was for an x-ray, but given the start of th is wide-complex tachycardia (questionable SVT versus V tac), I deemed the patient unstable t o wait for an x-ray, and the patient went to the ICU, given that this was not a needle that I would entertain re-going into the abdomen to remove for any reason. Otherwise, I was pres ent for the entire procedure and sponge and instrument counts were correct. Marsha Garcia MD ECM/MODL /[id number] signed by Marsha Garcia MD at 08/20/2019 8:23 AM PDTPlan of [facility] Rachealaleydastacey Jose, PT - 08/19/2019 1:24 PM PDTFormatting of this note migh t be different from the original. Physical Therapy 08/19/2019 1:24 PM Admit Date : 07/17/2019 Hospital Day: 33 Age : 54 y.o. Time in: 1105 Time out: 1135 Patient was seen for a total of 30 minutes of direct one on one skilled physical therapy wh ich included 15 minutes of therapeutic exercise,, and 15 min of gait training. Brief Hospital Course: Doug Lawson 54 y.o. s/p OLTx on 08/16 for ESLD2/2alcoho l abuse complicated by hepatic encephalopathy, spur cell anemia requiring chronic transfusio ns resulting in iron overload, afib, and KAR on CKD. Pt admitted on 07/17/2019 and optimized with DHT placement due to encephalopathy Per PA note 08/19/19 Past Medical History: Diagnosis Date Cirrhosis (HCC) CKD (chronic kidney disease) Status Update: no acute changes, continues to drain out of incision. Relevant Precautions: Abdominal. Subjective: Back to bed, back to bed bed bed. (singing). Pain: min endorsed at abdomen as pressure, nurse aware. Objective: Present in session aside from physical therapist and patient: none. Vitals: stable as per observation in session. Special Equipment / respiratory care: chair placed in jordan for destination in gait. Education: patient educated on proper use of front wheeled walker for pivots and when to le t go of it for stand to sit and transfers. Patient with moderate follow through. Functional Mobility training: -supine to sit via log roll at right edge of bed. Needs cues for sequence and technique, no physical assist needed. -sitting balance independent. Safe, no attempts to stand. -sit to stand progressing from moderate assist on first attempt to contact guard assist for subsequent attempts. -gait training 6x14 ft to and from chair in jordan. With front wheeled walker. contact guard assist for gait, cues for front wheeled walker use, safety with pivots, and hand placement f or sit to stand and stand to sit. -stand pivot from bed to chair, no assistive device, stand by assist. No loss of balance. T o right. Therapeutic Exercises: sitting elbow flexion, LAQ, SLR, shoulder flexion. x15 each. End of session: Patient left sitting in chair, bilateral lower extremities on stool, all ne eds met, nurse aware of schedule for assisting patient back to bed at 1215. [facility] BASIC MOBILITY Difficulty turning over in bed 3 - A Little - Minimal/Contact Guard Assist/Supervision Difficulty sitting/standing from chair w/ arms 3 - A Little - Minimal/Contact Guard Assist/ Supervision Difficulty moving from supine to sitting on edge of bed 3 - A Little - Minimal/contact Guar d Assist/Supervision Help needed moving from /to chair/wheelchair 3 - A Little - Minimal/Contact Guard Assist/S upervision Help needed walking in hospital room 3 - A Little - Minimal/Contact Guard assist/Supervisio n Help needed climbing 3-5 steps w/railing 1 - Unable to do/total assistance - Total/Dependen t Assist [facility] Basic Mobility Total Score 16 Assessment: Patient performed well in session, able to walk for multiple bouts into jordan, e xperiencing increased pressure in abdomen, nurse comfortable with his continued mobility and team aware with plans to potentially add to the sutures. He was pleasant and tolerant of tr aining and therapeutic exercise, needs cues for integration of assistive device. Patient wou ld continue to benefit from skilled physical therapy services to assist in return towards pr ior level of function and independence. Interpretation of [facility] Short Form - Basic Mobility: CMS Modifier (G-Code) Score (in points) % of Functional Impairment, Limitation, or Restriction CN 6 100% impaired, limited, restricted CM 7-9 At least 80%, but less than 100% impaired, limited, or restricted CL 10-14 At least 60%, but less than 80% impaired, limited, or restricted CK 15-19 At least 40%, but less than 60% impaired, limited, or restricted CJ 20-22 At least 20%, but less than 40% impaired, limited, or restricted CI 23 At least 1%, but less than 20% impaired, limited, or restricted CH 24 0% impaired, limited, or restricted See care plan for goals. Updated Plan & Recommendations: ACTIVITY PLAN: *Nursing to re-assess per shift as needed.* - Lights on and curtains open during day hours. - Routine 30 ft distance ambulation 3x/day with FWW and 1 person assist. - Up to chair with stool every 3 hours and as needed with FWW and 1 person assist. Discharge Recommendations: 24 hour supervision;Continued PT at next level of care DME needed at discharge: defer Follow up with skilled physical therapy. nurse was notified of discharge recommendations. Should this patient discharge from the hospital prior to the next physical therapy treatmen t, this note shall serve as the discharge summary. Next visit: progress gait distance. Jose Lipscomb PT, DPT, NCS Problem: PT Goals- Adult Goal: Functional Mobility Goal Description Patient independent supine to sit to supine with use of bed features via log roll Patient independent sit to stand to sit with use of front wheeled walker from standard air Patient independent transfer bed to chair to bed with use of front wheeled walker Patient contact guard assistance gait with front wheeled walker 50 feet, gait speed 0.6m/s Patient performs 2 set(s) of 10 repetitions of shoulder elevation , elbow flexion and exten arjun , wrist flexion and extension , hand open and close , ankle pumps , heelslides , SAQ , hip abduction/addution . Patient without AROM deficits bilateral UEs and LEs in supine or sitting 08/05/19: Patient will score low risk of falls as measured by the DGI. Outcome: Gradual progress toward goal lan of Care - Ameliatangela balderasElise - 08/19/2019 7:52 AM PDT Problem: Nutrition Interventions Intervention: Food and nutrient distribution type or amount Note: Nutrition: Caloric Intake Analysis for 08/18/2019 21 Grams PROTEIN, 150 Calories. Figures represent foods eaten at 1 meal. Pt declined lunch and dinner. Includes 165 mL of Premier Protein. Foods recorded as eaten in EPIC. Will contin ue to follow. 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 When woke up for care he have present ed with some confusion. He reported that he fells that he "need protection." RESTORATIVE MEASURES/SELF-MANAGEMENT Patient/Family Target: Donell will have improved mobilization Progress to Target: Improving As evidenced by: Donell is able to move from stratcher and walk from hallways to his bed without much difficu lty or pain, however he does report feeling weak and deconditioned. He is more comfortable w ith foot elevated; this prevents fluid from settling in his lower extremities. Donell also like s wearing an abdominal binder for support. Donell denies pain, reports minor abdominal discomfo rt. NURSING ASSESSMENT & RECOMMENDATIONS FORWARD Nursing Assessment of Patient Stability Risk: Moderately unstable Recommendations Forward: - Cont to encourage OOB activity, breathing exercises, good nutrition. - Donell likes chocolate protein shakes. - Donell is on a calorie count. - Abdominal binder on for mobilization efforts, recliner w foot support when up in chair. - Donell taked ordered Seroquel for tonight and follow sleep. There is a scheduled and prn dos e available. lan of Care - Jody Campos RN - 08/18/2019 3:44 PM PDTToruben is able to mobilize to chair and walk hallways wi thout much difficulty or pain, however he does report feeling weak and deconditioned. He is more comfortable in the recliner chair that has a foot support than can be elevated; this pr events fluid from settling in his lower extremities while up in chair. Donell also likes wearin g an abdominal binder for support. Problem: General Plan of Care (Adult) Goal: Plan of Care Review Outcome: Goal met andoff - Nicholas Campos RN - 08/18/2019 3:41 PM PDTNursing Handoff Patient Daily Goal: up to chair x3, walk x2 today (08/18/19 08) Patient Specific Preferences: Donell likes chocolate protein shakes, prefers to sit in recline r chair that can elevate his legs (08/18/19799) [facility] IP NURSE HANDOFF: Tamez hospital course events: PMX: history of ESLD 2/2 alcohol abuse c omplicated by hepatic encephalopathy, EtOH cirrhosis (MELD 34), 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 resulting in iron overload, afib w/ RvR on metop and amio, KAR on CKD, T 2DM, EF 55-60% (low for hyperdynamics of cirrhosis) HPI: Pt initially presented this admission to [facility] upon transfer from OSH with decompensate d cirrhosis and metabolic encephalopathy, was managed by Internal Medicine prior to OR 08/15: liver tx, allograft cholecystectomy, reperfusion liver biopsy RESTORATIVE MEASURES/SELF-MANAGEMENT Patient/Family Target: Donell will have improved mobilization Progress to Target: Improving As evidenced by: Donell is able to mobilize to chair and walk hallways without much difficulty or pain, howev er he does report feeling weak and deconditioned. He is more comfortable in the recliner fabiola ir that has a foot support than can be elevated; this prevents fluid from settling in his lo wer extremities while up in chair. Donell also likes wearing an abdominal binder for support. Brandi longo denies pain, reports minor abdominal discomfort. NURSING ASSESSMENT & RECOMMENDATIONS FORWARD Nursing Assessment of Patient Stability Risk: Moderately unstable Recommendations Forward: - Cont to encourage OOB activity, breathing exercises, good nutrition. - Donell likes chocolate protein shakes. - Donell is on a calorie count. - Abdominal binder on for mobilization efforts, recliner w foot support when up in chair. - Donell has not slept at all; team aware, ordered Seroquel for tonight. There is a scheduled and prn dose available. lan of Jody Cuello, PT - 08/18/2019 11:41 AM PDTPT contact note Attempted to initiate PT treatment however nurse requesting PT hold as pt just starting blo od transfusion. Per nurse, pt ambulated twice yesterday and was up to chair for 2 hours thi s morning. Will continue to follow. Jody Bradley PT [id number] signed by Joyd Bradley PT at 08/18/2019 11:43 AM PDTPlan of Jody Mitchell RN - 08/17/2019 5:30 PM PDTTom walked the halls x2 today and spent time up in the chair. Is uncomfortable in the chair for prolonged periods of time d/t fluid/swel ling accumulating in his lower extremeties. Likes abdominal binder on w mobilization efforts . 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 resulting in iron overload, afib w/ RvR on metop and amio, KAR on CKD, T 2DM, EF 55-60% (low for hyperdynamics of cirrhosis) HPI: Pt initially presented this admission to [facility] upon transfer from OSH with decompensate d cirrhosis and metabolic encephalopathy, was managed by Internal Medicine prior to OR 08/15: liver tx, allograft cholecystectomy, reperfusion liver biopsy RESTORATIVE MEASURES/SELF-MANAGEMENT Patient/Family Target: Donell will have improved mobilization Progress to Target: Improving As evidenced by: Donell walked the halls x2 today and spent time up in the chair. Is uncomfortable in the fabiola ir for prolonged periods of time d/t fluid/swelling accumulating in his lower extremeties. L georgees abdominal binder on when walking. NURSING ASSESSMENT & RECOMMENDATIONS FORWARD Nursing Assessment of Patient Stability Risk: Moderately unstable Recommendations Forward: - Cont to encourage OOB activity, breathing exercises, good nutrition. - Donell likes chocolate protein shakes. - Abdominal binder on for mobilization efforts. lan of Care - Fadia Coughlin RD - 08/17/2019 2:27 PM PDTFormatting of this note might be different from the or iginal. Problem: Nutrition Interventions Intervention: Enteral Nutrition Consult received for enteral nutrition recommendations and post-liver transplant education. Patient reports he has been sipping on water but he has not yet had any clear liquids. Mariama or to transplant, pt was on a 2 gm Na diet supplemented with nocturnal TF. Currently tolerat ing Impact Peptide 1.5 formula at 20 ml/hr. Patient states he would like to have chocolate Premier protein shakes at breakfast and dinner when his diet advances. Currently on Endo Too l. Did note repeat NFPE today as pt in the ICU. Nutrition Diagnosis (per RD note 07/21):Pt meets the following criteria suggesting:Sever e protein-calorie malnutrition Energy intake:<75% energy intake compared to energy requirementfor > 1 mo (resolved) Depletion of fat stores:moderate(orbital) Depletion of muscle mass:severe(catholic, shoulder, scapula, clavicle) Fluid accumulation:severe(ascites and significant edema in BLE at least to knee) Rec: -Continue Impact Peptide 1.5 (Immune Enhancing formula in EPIC) @ 20 mL/hr advancing 15 mL q4-6hr or as tolerated to goal rate of 70 mL/hr x 24 hr/day (providing 1680 mL, 2530 kcals, 158 gm protein, 235 gm carbs, 1294 mL useable fluid) - Add 80 ml Kefir TID for probiotic benefits - Free water flushes 100 mL 3x/day - monitor fluid status and adjust accordingly - Monitor abd exam/stooling pattern/N/V for signs of intolerance - When pt is tolerating continuous tube feeds and if PO intake increasing to 50% of est nee ds, transition to nocturnal feeding of Impact Peptide 1.5 @ 70 ml/hr x 12 hours to provide 8 40 ml, 1260 kcals, 79 gm protein, 118 gm carb, 647 ml usable fluid) - Advance diet as tolerated to Diabetic - CBG monitoring, insulin adjustment - Calorie count x 3 days to assist in tapering TF once PO intake is significant - Add chocolate Premier protein shakes at breakfast and lunch when diet advances Intervention: Nutrition Education Patient educated as below on Diabetic diet. Will provide post-liver transplant diet educat ion prior to discharge. (08/13) Met with patient and family members today to begin diabetes nutrition education. Si shree and mom will be here until Saturday before heading back to [place]. They plan to return an d help care for patient for a while after discharge. They've done the grocery shopping for h im in the past and are familiar with reading labels and things that patient should limit or avoid with regards to sodium content. At home, Donell doesn't eat consistent meals generally pr eferring to skip breakfast and lunch. He very much enjoys Gatorade. Has switched to Diet sod a. We discussed consistent meal times, limiting sweetened beverages and other simple carb fo ods, portion control. They want to review materials I left for them and then reach out with follow up questions. I also encouraged outpatient follow up and team plans to place a referr al prior to discharge. Intervention: Coordination of Nutrition Care Acceptable for discharge from a nutrition perspective pending the following: - Greater than 50% of 2-3 meals/day - Minimum of 2,000 ml fluid PO intake or per team discretion - If the above goals are not met prior to discharge, follow-up with outpatient dietitian to better assess PO intake improvement - Completion of post-transplant nutrition education Following, Fadia Verduzco, MS, RD, LD Pager #[phone] Admitting Dx:Doug Lawson is a 54 y.o. 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 after presenting there with AMS, R knee trauma due to a fall, hyperglycemia, renal insufficiency. S/p OLT (08/16) Food allergies/intolerances:none noted Diet order:Clear liquids Tube Feeding: Impact Peptide 1.5 @ 20 ml/hr Pertinent Meds:vit D3 50,000 units once weekly,lispro, albumin, mycophenolate, prilosec , methylprednisolone, tacrolimus Zinc supplementation completed 08/08 Last BM: 08/14 Skin:jaundiced,3+ pitting edema to mid [place] Chemistries: Last 72 Hours (or 3 results) - Refreshable Recent Labs 08/15/19 0454 08/15/19 1503 08/16/19 0822 08/16/19 1648 08/16/19 2052 08/17/19 0017 08/17/19 0018 08/17/19 1000 08/17/19 1240 08/17/19 1331 NA 134* -- 135* < > 140 < > 140 -- 140 -- 141 -- -- -- -- -- K 4.6 -- 4.5 < > 3.8 < > 4.4 -- 4.9 -- 4.9 -- -- -- -- -- CL 107 -- 106 < > 109* < > 110* -- 110* -- 110* -- -- -- -- -- BICARB 19* -- 23 -- 23 < > 23 -- 24 -- 22 -- -- -- -- -- BUN 60* -- 56* -- 51* < > 55* -- 57* -- 58* -- -- -- -- -- CR 1.18 -- 1.12 -- 1.01 < > 1.22 -- 1.32* -- 1.35* -- -- -- -- -- GLU 197* < > 103* < > 257* < > 167* < > 161* < > 136* -- < > 128* 142* 112* CA 8.2* -- 8.6 -- 8.2* < > 8.3* -- 8.5* -- 8.4* -- -- -- -- -- MG 2.2 -- 2.2 -- 2.6 -- -- -- -- -- 2.6 -- -- -- -- -- PO4 3.2 -- -- -- 3.3 -- -- -- -- -- 6.0* -- -- -- -- -- WBC 4.69 -- -- < > -- < > 6.88 -- 7.16 -- -- 7.69 -- -- -- -- HB 6.7* -- -- < > -- < > 8.5* -- 8.0* -- -- 8.2* -- -- -- -- HCT 21.0* -- -- < > -- < > 25.3* -- 23.7* -- -- 24.1* -- -- -- -- PLT 59* -- -- < > -- < > 44* -- 38* -- -- 37* -- -- -- -- MCV 108.2* -- -- < > -- < > 95.1 -- 96.0 -- -- 93.4 -- -- -- -- RDW 80.2* -- -- < > -- < > 63.0* -- 62.4* -- -- 58.6* -- -- -- -- AST 93* -- 99* -- 807* < > 345* -- 253* -- 186* -- -- -- -- -- ALT 53 -- 55 -- 627* < > 465* -- 398* -- 346* -- -- -- -- -- TBILI 11.0* -- 11.5* -- 6.7* < > 2.6* -- 2.3* -- 2.2* -- -- -- -- -- AP 222* -- 250* -- 82 < > 56 -- 53 -- 46* -- -- -- -- -- TP 6.2* -- 6.7 -- 4.8* < > 5.1* -- 5.1* -- 5.2* -- -- -- -- -- ALB 2.8* -- 3.0* -- 2.1* < > 2.6* -- 2.6* -- 2.8* -- -- -- -- -- PREALB -- -- -- -- -- -- -- -- -- -- 10.1* -- -- -- -- -- < > = values in this interval not displayed. Lab Results Component Value Date [id number] 19.9 04/21/2019 Lab Results Component Value Date ZINC 31.0 04/23/2019 Lab Results Component Value Date A1C 8.1 (H) 07/17/2019 *A1C not accurate due to hx of frequent transfusions 04/21/2019: retinol 0.21 mg/L (L) would not supplement vitamin A at this point. Possibly falsely low due to reduced hepatic s ynthesis of RBP by diseased liver. Would consider supplementation if retinol <0.15 04/23/2019: MMA 0.34 umol/L, serum copper 72.8 ug/dL CBG Result Av.7 Min: 112 Max: 174 Ht: 71" Current wt: 98.2 kg (standing 08/15) Dosing Wt: 81.6 kg BMI: 25.1 kg/m2 Estimated Nutrition Needs post OLT: 0658-6264 kcals (30-35 kcal/kg), 122-163 gm protein (1. 5-2.0 gm/kg) Wt Readings from Last 4 Encounters: 08/15/19 98.2 kg (216 lb 7.9 oz) 07/06/19 88.1 kg (194 lb 3.2 oz) 05/20/19 88.2 kg (194 lb 6.4 oz) 05/20/19 88 kg (194 lb) lan of Care - Ermelinda au Verena, PT - 08/17/2019 10:43 AM PDT Physical Therapy Re-Evaluation & Treatment [id number] [facility] day Date of : 1965 Start of care: 07/17/2019 Attending Practitioner: Marsha Garcia MD Primary/Referral Diagnosis/ICD-9: K70.31 Alcoholic cirrhosis of liver with ascites (HCC) I47.1 SVT (supraventricular tachycardia) (HCC) Insurance: Payor: [facility] [place] / Plan: [facility] / Product Type: Medicaid / Service period from: 08/17/2019 to 09/16/2019 Time in: 09 Time out: 0957 This patient was seen for a total of 43 minutes of direct one-on-one skilled physical thera py which included re-evaluation and 23 minutes of therapeutic activity. 08/17/2019 10:44 AM Patient seen on 8C. Parties present for session: Physical therapist, physical therapy human resources intern, patient, intermit tently RN Consulted/Discussed patient's care with: JAYDE Guerrero Brief Hospital Course: Doug Kirkdwight 54 y.o. s/p OLTx on 08/16 for ESLD2/2alcoho l abuse complicated by hepatic encephalopathy, spur cell anemia requiring chronic transfusio ns resulting in iron overload, afib, and KAR on CKD. Pt admitted on 07/17/2019 and optimized with DHT placement due to encephalopathy (Dr. Cid, 08/17) Admission Update: Underwent OLT 08/15-08/16 Relevant Precautions: Abdominal, fall risk Justification for PT Re-evaluation: Physical therapy re-evaluation is indicated due to a ch hollie in the patient's condition and functional status that was not anticipated in the previo usly formulated plan of care and warrants modification of acute care physical therapy goals, interventions, and/or frequency and duration of skilled services. Specifically, surgical in terventions as detailed above. Past Medical History: Diagnosis Date Cirrhosis (HCC) CKD (chronic kidney disease) Past Surgical History: Procedure Laterality Date LEG SURGERY Living Environment: Lives with mother and sister in a single-level home with no step(s) to enter/exit. 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 Prior to trans plant, admitted and ambulatory with supervision. Patient/Family Goal: to return to prior level of health Communication: [place] Barriers: none Pain: Patient reports that his pain has been under control since last night when he receive d his medication. CPOT 0. Vital signs: within normal limits Subjective Statements: patient consents to physical therapy and would like to get moving. Nixon eduardo says, "I'm ready to move." Cognitive Screen Level of alertness: alert Orientation: oriented to person, place, and situation Quality of responses: appropriate, tangential Command following: appropriate to single step Judgment/safety awareness: slightly impulsive with movements and his ability to perform mo vements such as standing Physical Assessment ROM: within normal limits in all extremities Strength: right lower extremity - hip flexion 4/5, knee flexion and extension 4/5, ankle p lantar and dorsiflexion 5/5 Left lower extremity - hip flexion 3+/5, knee flexion 3+/5 knee extension 4/5, ankle plan tar and dorsiflexion 5/5. Edema: moderate edema in bilateral lower extremities especially at dorsal aspect of feet Skin Integrity: intact Lines/Drains/Airways: PIV x 2, central line, osmany drain, payton catheter, vital signs nicko toring Neurological Function Sensation: decreased sensation left L2-L4 Muscle Tone: normal Proprioception: normal Gross Motor: intact Fine Motor: intact Balance Static sitting: contact guard Dynamic sitting: minimum assistance Static standing: minimum assistance Dynamic standing: moderate assistance Mobility & Transfers Supine to sit: minimum assistance Sit to supine: minimum assistance Sit to stand: minimum assistance Stand to sit: minimum assistance Scoot: minimum assistance Stand pivot transfer: minimum assistance Functional Mobility Assessment & Training Patient was able to transfer supine to sitting with minimum assistance using log roll techn ique and cues for hand placement and technique Patient transferred from sit to stand with minimum assistance to front wheel walker with cu es for sequencing Minimal loss of balance upon initial stand requiring minimum assist to recover, no further episodes during session. Gait training 25 feet with minimum assistance and front wheel walker and chair follow Patient transferred from stand to sitting in chair with minimum assistance and cues for wren d placement Patient Education Patient was educated on abdominal precautions which include no bending at waist, no twistin g, log roll technique for bed mobility, no lifting more than 10 pounds for 6 weeks or per ph ysician's discretion. Patient was also educated on the importance of activity plan and importance for healing. Patient verbalizes understanding. Handout(s) provided. [facility] BASIC MOBILITY Difficulty turning over in bed 3 - A Little - Minimal/Contact Guard Assist/Supervision Difficulty sitting/standing from chair w/ arms 3 - A Little - Minimal/Contact Guard Assist/ Supervision Difficulty moving from supine to sitting on edge of bed 3 - A Little - Minimal/contact Guar d Assist/Supervision Help needed moving from /to chair/wheelchair 3 - A Little - Minimal/Contact Guard Assist/S upervision Help needed walking in hospital room 2 - Alot - Maximum/Moderate Assistance Help needed climbing 3-5 steps w/railing 2 - Alot - Maximum/Moderate Assistance [facility] Basic Mobility Total Score 16 *Note: This activity was not directly observed and scoring is implied based on other compon ents of patient's mobility and may be an underestimate 1 - Unable to do/total assistance = Total/Dependent Assist 2 - A lot = Maximum/Moderate Assistance 3 - A little = Minimal/Contact Guard Assist/Supervision 4 None = Modified independent/Independent Interpretation of [facility] Short Form - Basic Mobility: CMS Modifier (G-Code) Score (in points) % of Functional Impairment, Limitation, or Restrict ion CN 6 100% impaired, limited, restricted CM 7-9 At least 80%, but less than 100% impaired, limited, or restricted CL 10-14 At least 60%, but less than 80% impaired, limited, or restricted CK 15-19 At least 40%, but less than 60% impaired, limited, or restricted CJ 20-22 At least 20%, but less than 40% impaired, limited, or restricted CI 23 At least 1%, but less than 20% impaired, limited, or restricted CH 24 0% impaired, limited, or restricted Treatment provided this date: physical therapy re-evaluation, transfer training, patient ed ucation Ended session: Patient in chair, call light within reach, RN in room ASSESSMENT: Donell Lawson presents to PT re-evaluation s/p OLTx. He demonstrates lower extremit y weakness, decreased lower extremity sensation, and edema, as well as mild deconditioning. He has reduced insight into abdominal precautions and implications for functional mobility, requiring cues and training. Donell would benefit from skilled inpatient physical therapy servi jake to address these impairments and maximize his independence and functional mobility in or mariam to facilitate a safe return home. Donell's knowledge of disease process: Good . The patient requires services that can be safely and effectively performed only by a qualif ied therapist to address the aforementioned and highlighted problems and goals. Goals discussed and agreed upon with Doug and family. This patient has good rehabilitation potential to achieve stated goals (see Care Plan for g oals) and requires continued rehabilitation services, given that the patient's medical condi tion and treatment are at a level of complexity or sophistication requiring the skills of a therapist for monitoring and adjustment of interventions. PLAN: therapeutic exercise, gait training, transfer training, patient education as appropri ate Frequency: 5 times per week Duration: 2 week(s) UPDATED GOALS: Patient will be independent with verbalization and demonstration of 3/3 abdominal precautio ns Patient will be able to transfer from supine to sitting independently using abdominal preca utions and bed features Patient will be able to transfer from sit to stand independently Patient will be able to ambulate 300 ft. With modified independence using front wheel walke r Patient will be independent with HEP ACTIVITY RECOMMENDATIONS: Nursing to re-assess per shift as needed. - Lights on and curtains open during day hours. - Up to chair for meals or 3-5x/day with front wheel walker and 1 person assist. - Routine ambulation 3-5x/day with front wheel walker and 2 person assist. DISCHARGE RECOMMENDATIONS: 24 hour supervision;Continued PT at next level of care DME: MATILDE RN Yolanda consulted re: recommendations The above plan of care and goals were developed and reviewed with the patient. Should this patient discharge from the hospital prior to the next physical therapy treatment, this note shall serve as the discharge summary. James Toney, SPT I was present and in the room for the entire session. The student participated in the [facility] while I directed the service, made the skilled judgment, and was responsible for the assessment and treatment. I verify that I directed the plan of care and was immediately available for assistance as n ecessary both during the session and documentation. Verena Pearson, PT, DPT Physical Therapist Pager #[phone] signed by Verena Pearson PT at 08/17/2019 11:48 AM PDTPl an of Care - Jody Rios RN - 08/16/2019 6:00 PM PDTPt verbally agrees to stated pl an of care. Pt extubated and lines de-escalated. Pt demonstrates an understanding of discont inuation of restraint criteria. andoff - Jody Rios RN - 08/16/2019 5:35 PM PDTNursing Handoff Patient Daily Goal: get a new liver!! (08/15/191954) Patient Specific Preferences: tv/movies on (07/21/19 0800) [facility] IP NURSE HANDOFF: [facility] hospital course events: HPI: Doug Lawson is a 54 y.o. male with EtOH cirrhosis (MELD 34) c/b hepatic encephalopathy and spur cell anemia requiring chronic transfusions w/ 2 Fe overload, who is now s/p 08/15 OLTx and who presents to the ICU for post-op monitoring. PMHx otherwise notable for KAR on CKD, hemochromatosis, a-fib w / RvR (metop and amio), EF 55-60% (low for hyperdynamics of cirrhosis), and T2DM. History o btained from chart. Pt initially presented to for this admission to [facility] on transfer from [facility] with decompensated cirrhosis and metabolic encephalopathy, managed by Internal Medicine p rior to OR COMFORT/ANXIETY/BEHAVIOR Patient/Family Target: CPOT <1 and Numeric less than 4 Progress to Target: Improving As evidenced by: Pt pain free while intubated. C/O pain x 1 before extubation and given 50 mcg fentanyl wi th good effect. Post extubation pain controlled with lidocaine patches, oxycodone, and tylen ol. Pt also repositioned. HYGIENE/INFECTION Patient/Family Target: No s/s of infection. Progress to Target: Improving As evidenced by: Labs trending. VSS. Pt extubated. IS and coughing and deep breathing techniques taught to patient. Pt suctions self and has strong productive cough. RESTORATIVE MEASURES/SELF-MANAGEMENT Patient/Family Target: Hemodynamic stabilization Progress to Target: Improving As evidenced by: Vasopressors weaned off and pt tolerated well. BS controlled with insulin gtt and are beg inning to stabilize. Trending labs and correcting electrolytes as needed. No cardiac abnorma lities beyond baseline noted. Pt weaned on vent and extubated. On RA and tolerating well. YA drain draining moderate amounts sero-serosanguinous drainage and additional serous drainage around site noted. Primary team and attending aware of drainage. NURSING ASSESSMENT & RECOMMENDATIONS FORWARD Nursing Assessment of Patient Stability Risk: Moderately stable Recommendations Forward: Continue to advance care, activity, mobility, and pulmonary hygien e as tolerated. Barriers to discharge: Need for post-transplant management lan of Care - Brigid Mattson RCP - 08/16/2019 10:23 AM PDT Problem: RT Goals & Interventions Goal: Maintain ventilator support Note: Pt on Vol AC post OR 18/530/5/25% lowsheet Note - Brigid Pinon RCP - 08/16/2019 10:21 AM PDTETT pulled back 2cm to 22 @ teethElectronica lly signed by Brigid Pinon RCP at 08/16/2019 10:22 AM PDTBrief Op Note - Shanita Ken MD - 08/16/2019 7:21 AM PDT . Date of procedure: 07/17/2019 - 08/16/2019 Times Event Time In Procedure Start Sun Aug 16, 2019 0051 Location: [facility] Surgeon(s) and Role: * Marsha Garcia MD - Primary * Bailee Ken MD - Fellow Staff: Liability Claims Adjuster: Lashonda Valdez RN Scrub: Terrell Doherty RN; Elizabeth Sanchez RN; ST Rene Pre Op Dx Alcoholic Cirrhosis Procedure Date: 08/15 start Attending: Jose Assistants: Bailee Ken Preoperative Diagnosis: EtOH cirrhosis Postoperative Diagnosis: same Procedure Performed: OLT, allograft cholecystectomy, reperfusion liver biopsy Findings: No ascites, arrhythmias during case required lidocaine Complications: none Specimens: Recipient liver, donor gallbladder, reperfusion liver biopsy Drains: YA x1 in RUQ Disposition: ICU Payton: yes Diet: CLD once extubated Glycemic control: SSI, insulin gtt prn UNOS ID: [id number] Donor ABO: A Donor CMV: - Recipient ABO: A Recipient CMV: + MELD Bio: 33 MELD Actual: 33 Crystal: 4L PRBC: 6 Auto: 484mL FFP: 3 Plts: 1 Cryo: 0 Albumin 5%: 0 UOP: 1040 Donor C-Clamp: 1958 (08/15) Pt in room: 2301 Incision: 0051 Clamp CARVER: 0145 Clamp PV: 0225 Recip Liver Out: 0323 Liver Flush: 0331 Clamp IVC: 0338 Liver Off Ice: 0341 Unclamp IVC and PV: 0417 Unclamp CARVER: 0505 Carmelo Anast: 0656 Cold Ischemia Time: 7hr 42min Warm Ischemia Time: 36min Bile Flow: Yes Arterial anastomosis: Donor splenic to recipient R/L branch patch (recipient with large acc essory left artery) Anesthesia TSICU Admission/Day 0 TSICU Day 1 STICU Day 2 1. Give perioperative ABX prophylaxis 2. Intra operative immune suppression as per protocol 3. Place both triple lumen and introducer/ Moline-Lisa 1. Weigh patient 2. VS per TSICU Protocol 3. Strict I & O 4. On admission & q4h: CBC/CMP/Coags/Mg/Phos 5. Amylase on admission 6. CXR on admission then per TSICU protocol 7. ABG per protocol 8. Wean Propofol if no chemical paralysis 9. Fentanyl gtt for pain 10. Wean pressors 11. Fast track to extubate (ideal <4h) 12. Start Fentanyl medical technician assistant when alert 13. NGT out with ET tube unless Malcolm & Y 14. Remove Moline/Lisa <6h 15. Electrolytes Replaced per protocol 1. Weigh patient 2. VS per TSICU Protocol 3. Strict I & O 4. Q12h: CBC/CMP/Coags/Mg/Phos 5. Clear liquids 6. ABG if intubated 7. Electrolytes Replaced per protocol 8. DC all lines except triple lumen 9. Consider Transfer to [facility] 1. Weigh patient 2. VS per TSICU Protocol 3. Strict I & O 4. QAM: CBC/CMP/Coags/Mg/Phos 5. Electrolytes Replaced per protocol TSICU Guideline for Liver Transplant First 24h Fast Track to Extubate within 4h of admission, when appropriate Remove Moline/Lisa catheter within 6h of admission SBP Goal >90 or <165 CVP Goal 8-12 MAP Goal > 60-65 If MAP and CVP goals unmet, and Hct > 24 Resuscitate with 5% albumin and call transplant abreu rgical attending Patients with large volume ascites will be on high concentration 25% Albumin q6h replacemen t to an albumin >3 Hct goal > 24 if below goal transfuse PRBC and notify transplant team, call transplant surg ical attending if >4u PRBC transfused Platelet goal > 25?if below goal give 1u platelets INR goal < 2.5 If CVP and MAP goals met use vitamin K for correction to goal, if unmet give FFP call transplant surgical attending NOTE: It may take 24-48h for patient to show urine output reflective of resuscitation effor ts. Due to their pre-existing Hepatic disease, ascites, hepatorenal, hepatopulmonary syndro me, it is imperative to be cautious pursuing urine output as an end goal of resuscitation, p migdalia contact Transplant attending or advanced practice provider for guidance whenever initi ating colloid resuscitation in our liver transplant recipients. Specimens ID Type Source Tests Collected by Time Destination 1 : ascites Fluid Abdominal CULTURE, AFB (ALL SPEC TYPES EXCEPT BLOOD), CELL COUNT DIFF, B SHAVON FLUID, CULTURE, BODY FLUID, NON ASSISTANT BUSINESS MANAGER CYTOLOGY, CULTURE, FUNGAL EXCEPT BLOOD, SKIN, HAIR, NAIL Marsha Garcia MD 08/16/2019 0132 2 : recipient [place] [facility] and gallbladder Tissue Liver SURGICAL PATHOLOGY Marsha Garcia MD 08/16/2019 0401 3 : allograft liver biopy Tissue Liver SURGICAL PATHOLOGY Marsha Garcia MD 08/16/2019 052 3 4 : donor gallbladder Tissue Gallbladder SURGICAL PATHOLOGY Marsha Garcia MD 08/16/2019 0 527 Implants/Grafts None Complications: None Bailee Ken MD Associated attestation - Marsha Garcia MD - 08/17/2019 3:04 PM PDTI saw and evaluated t he patient. I agree with the findings and the plan of care as documented in the resident s note. MARSHA GARCIA MD [address] [place] [address] Handoff - Ana Cristina Carter RN - 08/15/2019 12:36 PM PDTNursing Handoff Patient Daily Goal: get my pepper steak today (08/15/19 2122) Patient Specific Preferences: tv/movies on (07/21/19 0800) [facility] IP NURSE HANDOFF: [facility] hospital course events: [facility] hospital course events: 54 yo man w ith spur cell anemia requiring chronic transfusions c/b iron overload, EtOH cirrhosis c/b as cites, listed for liver transplant, transferred for AMS and falls found to have hyperglycemi a and renal insufficiency. Hospital course complicated by SVT requiring ICU transfer and ami odarone drip. Work-up has been unremarkable, including a knee aspirate demonstrating finding s most consistent with hemarthrosis.. In regard to his tachyarrythmia, his cardiac function appears to be compensated and is not a contraindication for transplant per se. Tachyarrythmi a has been well controlled with PO amiodarone and metoprolol and per discussions with EP att ending Dr. Mcintyre, his SVTs should not preclude pt from transplant and can be managed in the intra/clara-operative period. If difficult to control despite amio/metop, they could also of concepción ablative therapies prior to transplant. 07/26: Episode of SVT. Resolved with bolus. On Tele 08/07 Placed at top list for liver transplant 08/15 Possible liver transplant at [address] [facility] COMFORT/ANXIETY/BEHAVIOR Patient/Family Target: Donell and/or family will have practice drawing up or administering insulin. Progress to Target: Deteriorating As evidenced by: -Donell had a lot of family visiting today and was very distracted by news of transplant - -He will be DCing on insulin pens- Mom and Sister feel familiar with them and have no quest ions about their use. -Glucometer/lancets/strips- also obtained my sister and Mom. They verbalized understanding and feel comfortable with use. As evidenced by: RESTORATIVE MEASURES/SELF-MANAGEMENT Patient/Family Target: Donell will ambulate in halls x3 Progress to Target: No Change As evidenced by: -Showered. -Ambulated in halls x2 HEALTH PROMOTION Patient/Family Target: Donell will have 2-3-BM this shift. (Goal is 3-5 in 24 hours) Progress to Target: Deteriorating As evidenced by: No BMs this shift, Ordered to hold lactulose per Hepatology. NURSING ASSESSMENT & RECOMMENDATIONS FORWARD Nursing Assessment of Patient Stability Risk: Moderately unstable Recommendations Forward: -CBGs have been lower this shift. Have Donell finish meal before prov iding meal time insulin. Only given half dose if he only eats half of a meal (as written in order). - Titrate BMs to 3-5. - SBA in jordan, IND in room: Ambulate in halls TID. - Encourage PO intake during day - Per MD, dark/ red urine d/t home med Deferiprone - Will require blood transfusion prior to receiving liver: MD wants to wait until viable li charlie available to transfuse. Barriers to discharge: -New diagosis of DM. Requires ongoing Diabetic eduation. -AMS: speech garbled/slurred at baseline -Liver transplant- on list, waiting for organ andoff - Ivy Roman, RN - 08/14/2019 5:53 PM PDTNursing Handoff Patient Daily Goal: Eat dinner (08/13/192121) Patient Specific Preferences: tv/movies on (07/21/19 0800) [facility] IP NURSE HANDOFF: [facility] hospital course events: [facility] hospital course events: 54 yo man w ith spur cell anemia requiring chronic transfusions c/b iron overload, EtOH cirrhosis c/b as cites, listed for liver transplant, transferred for AMS and falls found to have hyperglycemi a and renal insufficiency. Hospital course complicated by SVT requiring ICU transfer and ami odarone drip. Work-up has been unremarkable, including a knee aspirate demonstrating finding s most consistent with hemarthrosis.. In regard to his tachyarrythmia, his cardiac function appears to be compensated and is not a contraindication for transplant per se. Tachyarrythmi a has been well controlled with PO amiodarone and metoprolol and per discussions with EP att ending Dr. Mcintyre, his SVTs should not preclude pt from transplant and can be managed in the intra/clara-operative period. If difficult to control despite amio/metop, they could also of concepción ablative therapies prior to transplant. 07/26: Episode of SVT. Resolved with bolus. On Tele 08/07 Placed at top list for liver transplant COMFORT/ANXIETY/BEHAVIOR Patient/Family Target: Donell and/or family will have practice drawing up or administering insulin. Progress to Target: No Change As evidenced by: -Donell administered his own insulin x1 but did not draw it up. -He will be DCing on insulin pens- Mom and Sister feel familiar with them and have no quest ions about their use. -Glucometer/lancets/strips- also obtained my sister and Mom. They verbalized understanding and feel comfortable with use. As evidenced by: RESTORATIVE MEASURES/SELF-MANAGEMENT Patient/Family Target: Donell will ambulate in halls x3 Progress to Target: No Change As evidenced by: -Showered. -Ambulated in halls x2 HEALTH PROMOTION Patient/Family Target: Donell will have 2-3-BM this shift. (Goal is 3-5 in 24 hours) Progress to Target: No Change As evidenced by: 1 BM thus far. 1 PRN dose of lactulose given in addition to scheduled. NURSING ASSESSMENT & RECOMMENDATIONS FORWARD Nursing Assessment of Patient Stability Risk: Moderately unstable Recommendations Forward: -CBGs have been lower this shift. Have Donell finish meal before prov iding meal time insulin. Only given half dose if he only eats half of a meal (as written in order). - Titrate BMs to 3-5. - SBA in jordan, IND in room: Ambulate in halls TID. - Encourage PO intake during day - Per MD, dark/ red urine d/t home med Deferiprone - Will require blood transfusion prior to receiving liver: MD wants to wait until viable li charlie available to transfuse. Barriers to discharge: -New diagosis of DM. Requires ongoing Diabetic eduation. -AMS: speech garbled/slurred at baseline -Liver transplant- on list, waiting for organ lan of Care - Zenaida escoto, January, - 08/14/2019 1:42 PM PDTProblem: Nutrition Interventions Intervention: Nutrition Education Note: Stopped by to see patient. No family present but should be in a little later. He says they didn't have any follow up questions at this time regarding education we started yesterday. I will continue to follow along for additional education needs and can check back with family later today as time allows. Tamika Banuelos RD [facility] Pager #[phone] andoff - David Macias RN - 08/13/2019 9:35 PM PDTNursing Handoff Patient Daily Goal: Eat dinner (08/13/192121) Patient Specific Preferences: tv/movies on (07/21/19 0800) [facility] IP NURSE HANDOFF: [facility] hospital course events: [facility] hospital course events: 54 yo man w ith spur cell anemia requiring chronic transfusions c/b iron overload, EtOH cirrhosis c/b as cites, listed for liver transplant, transferred for AMS and falls found to have hyperglycemi a and renal insufficiency. Hospital course complicated by SVT requiring ICU transfer and ami odarone drip. Work-up has been unremarkable, including a knee aspirate demonstrating finding s most consistent with hemarthrosis.. In regard to his tachyarrythmia, his cardiac function appears to be compensated and is not a contraindication for transplant per se. Tachyarrythmi a has been well controlled with PO amiodarone and metoprolol and per discussions with EP att ending Dr. Mcintyre, his SVTs should not preclude pt from transplant and can be managed in the intra/clara-operative period. If difficult to control despite amio/metop, they could also of concepción ablative therapies prior to transplant. 07/26: Episode of SVT. Resolved with bolus. On Tele 08/07 Placed at top list for liver transplant As evidenced by: HEALTH PROMOTION Patient/Family Target: Donell will have 3-5 BM this shift. Progress to Target: Improving As evidenced by: Donell had 3 large+ BM's this shift. Mentation appropriate to situation. NURSING ASSESSMENT & RECOMMENDATIONS FORWARD Nursing Assessment of Patient Stability Risk: Moderately unstable Recommendations Forward: - Titrate BMs to 3-5. - Encourage Donell to check own blood sugars/administer own insulin - SBA in j[place], IND in room: Ambulate in halls TID. - Encourage PO intake during day - Per , dark/ red urine d/t home med Deferiprone - Will require blood transfusion prior to receiving liver: MD wants to wait until viable li charlie available to transfuse. Barriers to discharge: -New diagosis of DM. Requires ongoing Diabetic eduation. -AMS: Intermittently confused, speech garbled/slurred at baseline -Liver transplant- on list, waiting for organ andoff - Ester Waters RN - 08/13/2019 7:44 PM PDTNursing Handoff Patient Daily Goal: Pt will report feelin rested upon waking. (08/11/192046) Patient Specific Preferences: tv/movies on (07/21/19 08) [facility] IP NURSE HANDOFF: [facility] hospital course events: [facility] hospital course events: 54 yo man w ith spur cell anemia requiring chronic transfusions c/b iron overload, EtOH cirrhosis c/b as cites, listed for liver transplant, transferred for AMS and falls found to have hyperglycemi a and renal insufficiency. Hospital course complicated by SVT requiring ICU transfer and ami odarone drip. Work-up has been unremarkable, including a knee aspirate demonstrating finding s most consistent with hemarthrosis.. In regard to his tachyarrythmia, his cardiac function appears to be compensated and is not a contraindication for transplant per se. Tachyarrythmi a has been well controlled with PO amiodarone and metoprolol and per discussions with EP att ending Dr. Mcintyre, his SVTs should not preclude pt from transplant and can be managed in the intra/clara-operative period. If difficult to control despite amio/metop, they could also of concepción ablative therapies prior to transplant. 07/26: Episode of SVT. Resolved with bolus. On Tele 08/07 Placed at top list for liver transplant HYGIENE/INFECTION Patient/Family Target: Summary of shift: Progress to Target: Improving As evidenced by: --Donell was lethargic but oriented x 4 this shift. He did not sleep well last night due to pain in his legs which he attributes to the hospital sheets and edema. Allowed him to nap fo r 1 hour this afternoon but kept him the rest of the shift to promote sleep/wake cycle. [place] ly at bedside much of shift, participating in care and walking with pt in the halls. --Encouraged Donell to draw up and administer his own insulin this morning. He resisted at [facility], saying he already knew how to do it. I said, "Good, show me then!" With some prompting, Donell was able to draw up insulin in vial but he either had poor vision(he was wearing his gla sses) or impaired cognition because he lencho up 25 units and thought he had drawn up 20. -Donell's sister Richelle took his blood sugar this afternoon, lencho up his insulin, and administe red sub-q injection, showing good technique. Richelle says they may go home with insulin pens. -Donell has not had any BMs this shift despite 3 doses of lactulose. NURSING ASSESSMENT & RECOMMENDATIONS FORWARD Nursing Assessment of Patient Stability Risk: Moderately unstable Recommendations Forward: - Titrate BMs to 3-5. - Encourage Donell to check own blood sugars/administer own insulin - SBA in jordan, IND in room: Ambulate in halls TID. - Encourage PO intake during day - Per MD, dark/ red urine d/t home med Deferiprone - Will require blood transfusion prior to receiving liver: MD wants to wait until viable li charlie available to transfuse. Barriers to discharge: -New diagosis of DM. Requires ongoing Diabetic eduation. -AMS: Intermittently confused, speech garbled/slurred at baseline -Liver transplant- on list, waiting for organ lan of Care - [facility] and, January, - 08/13/2019 1:57 PM PDT Problem: Nutrition Interventions Intervention: Nutrition Education Note: Met with patient and family members today to begin diabetes nutrition education. Sister and mom will be here until Saturday before heading back to [place]. They plan to return and help c are for patient for a while after discharge. They've done the grocery shopping for him in e past and are familiar with reading labels and things that patient should limit or avoid wi regards to sodium content. At home, Donell doesn't eat consistent meals generally preferring to skip breakfast and lunch. He very much enjoys Gatorade. Has switched to Diet soda. We di scussed consistent meal times, limiting sweetened beverages and other simple carb foods, por tion control. They want to review materials I left for them and then reach out with follow u p questions. I also encouraged outpatient follow up and team plans to place a referral prior to discharge. Problem: Nutrition Interventions Intervention: Food and nutrient distribution type or amount Note: Patient eating OK, has feeling of fullness all the time. BMs have lessened with decrease in lactulose admin. Nutrition Diagnosis: Pt meets the following criteria suggesting: Severe protein-calorie mal nutrition Energy intake: <75% energy intake compared to energy requirement for > 1 mo (resolved) Depletion of fat stores: moderate (orbital) Depletion of muscle mass: severe (catholic, shoulder, scapula, clavicle) Fluid accumulation: severe (ascites and significant edema in BLE at least to knee) Rec: - Continue Regular, 2 gm sodium diet with textures per CORPORATE TRAVEL COUNSELOR/MD - Fluids per MD discretion - Premier Protein BID - Sending half portions per patient preference - No need to continue calorie count unless decline in PO suspected - Continue to encourage PO Intake - Continue MVI and vitamin D repletion Problem: Nutrition Interventions Intervention: Enteral Nutrition Note: TF was changed to a lower rate with longer infusion time on 08/11 in hopes would help with bowel frequency. - Continue with volume restricted TF formula - Nocturnal administration to promote appetite during the day - Consider condensing TF again per patient preference: Nutren 1.5 @ 80 mL/hr x 12 hr/night or 95 mL/hr x 10 hr/night (provides approx 960 ml TF volume, 1440 kcal, 65 g protein, 733 ml water, 169 g CHO and no fiber daily) - Monitor abd exam, N/V, abd distention - If needed, consider changing mag ox to another form such as mag chloride (slow mag) Following, January Vin [facility] Pager #[phone] Admitting Dx: Doug Lawson is a 54 y.o. 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 after presenting there with AMS, R k nee trauma due to a fall, hyperglycemia, renal insufficiency Food allergies/intolerances: none noted Diet order: Regular, 2 gm sodium Oral nutrition supplement: Premier Protein BID Pertinent Meds: vit D3 50,000 units once weekly, lispro, NPH, lactulose, Mag-Ox, MVI, rifax imin Zinc supplementation completed 08/08 Last BM: 08/12 Skin: jaundiced, 3+ pitting edema to mid [place] Chemistries: Last 72 Hours (or 3 results) - Refreshable Recent Labs 08/11/19 0548 08/12/19 0637 08/13/19 0441 08/13/19 0632 08/13/19 0928 NA 133* -- 135* -- 135* -- -- K 4.6 -- 4.1 -- 4.3 -- -- CL 103 -- 105 -- 106 -- -- BICARB 20* -- 20* -- 20* -- -- BUN 73* -- 73* -- 62* -- -- CR 1.31* -- 1.29 -- 1.22 -- -- GLU 199* < > 100* < > 208* 223* 225* CA 8.7 -- 8.7 -- 9.1 -- -- MG 2.4 -- 2.3 -- 2.4 -- -- PO4 3.9 -- 4.2 -- 3.5 -- -- WBC 4.14 -- 3.63 -- 4.39 -- -- HB 6.9* -- 7.0* -- 7.0* -- -- HCT 20.4* -- 21.6* -- 21.1* -- -- PLT 54* -- 56* -- 55* -- -- MCV 104.6* -- 104.9* -- 105.0* -- -- RDW 77.1* -- 78.8* -- 78.6* -- -- AST 91* -- 94* -- 109* -- -- ALT 56 -- 57 -- 58 -- -- TBILI 9.5* -- 10.8* -- 10.7* -- -- AP 211* -- 194* -- 206* -- -- TP 6.4 -- 6.7 -- 6.6 -- -- ALB 3.1* -- 3.3* -- 3.2* -- -- < > = values in this interval not displayed. No results found for: CHOL, TRI, HDL, LDL, VLDL Lab Results Component Value Date [id number] 19.9 04/21/2019 Lab Results Component Value Date ZINC 31.0 04/23/2019 Lab Results Component Value Date A1C 8.1 (H) 07/17/2019 *A1C not accurate due to hx of frequent transfusions 04/21/2019: retinol 0.21 mg/L (L) would not supplement vitamin A at this point. Possibly falsely low due to reduced hepatic s ynthesis of RBP by diseased liver. Would consider supplementation if retinol <0.15 04/23/2019: MMA 0.34 umol/L, serum copper 72.8 ug/dL CBG Result Av.5 Min: 122 Max: 225 LastCBG Intervention: Medication given (08/11/19 806) Ht: 71" Current wt: 96.8 kg Dosing wt: 81.6 kg BMI: 25.1 kg/m2 Estimated needs: 4899-2378 kcal (25-30 kcal/kg) and 85-125 gm protein (1-1.5 gm/kg) Wt Readings from Last 4 Encounters: 08/12/19 96.8 kg (213 lb 6.5 oz) 07/06/19 88.1 kg (194 lb 3.2 oz) 05/20/19 88.2 kg (194 lb 6.4 oz) 05/20/19 88 kg (194 lb) andoff - Zen Major RN - 08/13/2019 7:50 AM PDTNursing Handoff Patient Daily Goal: Pt will report feelin rested upon waking. (08/11/192046) Patient Specific Preferences: tv/movies on (07/21/19 0800) [facility] IP NURSE HANDOFF: [facility] hospital course events: Mr. 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 07/26: Episode of SVT. Resolved with bolus. On Tele 07/27: Hemoglobin <7. 1 unit PRBCs. 07/28: Abnormal anion gap. 07/28 Was de-listed for transplant due to arrhythmia. Decision will be made on () if he will be re-listed. 08/07: albumin given 08/07 Placed at top list for liver transplant HYGIENE/INFECTION Patient/Family Target: Donell will have 3-5 BMs today with titrated lactulose doses. Progress to Target: Improving As evidenced by: Administered Donell's scheduled lactulose tonight and he had 2-3 loose BM's overnight. Rosette nues to be A&Ox3-4. RESTORATIVE MEASURES/SELF-MANAGEMENT Patient/Family Target: As evidenced by: HEALTH PROMOTION Patient/Family Target: Donell will cooperate with DM teaching and practice. Progress to Target: Improving As evidenced by: Asked Donell about how he feels about his DM management. He states that he enjoys having the nurses manage for the time being because he know's he'll have to eventually after discharge . He also mentioned that he practiced somewhat during the day, but he knows "he's just going to forget." I recommend encouraging Donell to use the lancets and administer his insulin himse lf. NURSING ASSESSMENT & RECOMMENDATIONS FORWARD Nursing Assessment of Patient Stability Risk: Moderately stable Recommendations Forward: - TFs run overnight beginning ~2300h at 70mL/hr over 14 hours. - Titrate BMs to 3-5. - Encourage Donell to check own blood sugars/administer own insulin - SBA in jordan, IND in room: Ambulate in halls TID. - Encourage PO intake during day - Per , dark/ red urine d/t home med Deferiprone - Will require blood transfusion prior to receiving liver: MD wants to wait until viable li charlie available to transfuse. Barriers to discharge: -New diagosis of DM. Requires ongoing Diabetic eduation. -AMS: Intermittently confused, speech garbled/slurred at baseline -Liver transplant- on list, waiting for organ rian - Carola Peter RN - 08/12/2019 1:27 PM PDTNursing Handoff Patient Daily Goal: Pt will report feelin rested upon waking. (08/11/192046) Patient Specific Preferences: tv/movies on (07/21/19 0800) [facility] IP NURSE HANDOFF: [facility] hospital course events: Mr. 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 07/26: Episode of SVT. Resolved with bolus. On Tele 07/27: Hemoglobin <7. 1 unit PRBCs. 07/28: Abnormal anion gap. 07/28 Was de-listed for transplant due to arrhythmia. Decision will be made on () if he will be re-listed. 08/07: albumin given 08/07 Placed at top list for liver transplant HYGIENE/INFECTION Patient/Family Target: Donell will have 3-5 BMs today with titrated lactulose doses. Progress to Target: Improving As evidenced by: -Over the last few days, Donell has had 3-4 BM's after taking morning lactulose dose and has not required his afternoon/evening lactulose. -Lactulose dose decreased in DEC due to frequency of stools -TF rate changed to 70mL/hr over 14 hours in hopes of decreasing gastric discomfort -Donell prefers to eat something small with his lactulose to minimize gastric upset - So far Donell has only had 1 BM, giving PRN lactulose. Remains A&Ox3. RESTORATIVE MEASURES/SELF-MANAGEMENT Patient/Family Target: As evidenced by: HEALTH PROMOTION Patient/Family Target: Donell will cooperate with DM teaching and practice. Progress to Target: Improving As evidenced by: - Encouraged Donell to take his own CBG. Donell complained about doing it but finally attempted - unable to press button on lancet. - With lots of pressure and encouragement Donlel agreed to administer his own insulin x1 - Lack of attention to teaching and practice, unsure if Donell and his family grasp the import ance of being able to manage his DM after he receives liver tx. - Donell and his family failed to notify RN that they brought him a chicken pot pie and that h e was eating lunch. NURSING ASSESSMENT & RECOMMENDATIONS FORWARD Nursing Assessment of Patient Stability Risk: Moderately stable Recommendations Forward: - TFs run overnight beginning ~2300h at 70mL/hr over 14 hours. - Titrate BMs to 3-5. - Encourage Donell to check own blood sugars/administer own insulin - SBA in jordan, IND in room: Ambulate in halls TID. - Encourage PO intake during day - Per MD, dark/ red urine d/t home med Deferiprone - Will require blood transfusion prior to receiving liver: MD wants to wait until viable li charlie available to transfuse. Barriers to discharge: -New diagosis of DM. Requires ongoing Diabetic eduation. -AMS: Intermittently confused, speech garbled/slurred at baseline -Liver transplant- on list, waiting for organ andoff - Jacques Macias RN - 08/11/2019 9:02 PM PDTNursing Handoff Patient Daily Goal: Pt will report feelin rested upon waking. (08/11/192046) Patient Specific Preferences: tv/movies on (07/21/19 0800) [facility] IP NURSE HANDOFF: [facility] hospital course events: Mr. 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 07/26: Episode of SVT. Resolved with bolus. On Tele 07/27: Hemoglobin <7. 1 unit PRBCs. 07/28: Abnormal anion gap. 07/28 Was de-listed for transplant due to arrhythmia. Decision will be made on () if he will be re-listed. 08/07: albumin given 08/07 Placed at top list for liver transplant HYGIENE/INFECTION Patient/Family Target: Donell will have 3-5 BMs today with titrated lactulose doses. Progress to Target: Improving As evidenced by: -Over the last few days, Donell has had 3-4 BM's after taking morning lactulose dose and has not required his afternoon/evening lactulose. -Lactulose dose decreased in DEC due to frequency of stools -TF rate changed to 70mL/hr over 14 hours in hopes of decreasing gastric discomfort -Donell prefers to eat something small with his lactulose to minimize gastric upset -two bm in last 24h. Reinitiate lactulose today. RESTORATIVE MEASURES/SELF-MANAGEMENT Patient/Family Target: As evidenced by: HEALTH PROMOTION Patient/Family Target: Donell will ambulate in hallways 1 times this shift. Progress to Target: Improving As evidenced by: -Donell ambulated with RN and independently in hallways x1 this shift NURSING ASSESSMENT & RECOMMENDATIONS FORWARD Nursing Assessment of Patient Stability Risk: Moderately stable Recommendations Forward: - TFs run overnight beginning ~2300h at 70mL/hr over 14 hours. ~6 0 mL drained on floor when line disconnected in sleep. - Titrate BMs to 3-5. (2 in 24h) - Encourage Donell to check own blood sugars/administer own insulin - SBA in jordan, IND in room: Ambulate in halls TID. - Encourage PO intake during day - Per MD, dark/ red urine d/t home med Deferiprone - Will require blood transfusion prior to receiving liver: MD wants to wait until viable li charlie available to transfuse. Barriers to discharge: -New diagosis of DM. Requires ongoing Diabetic eduation. -AMS: Intermittently confused, speech garbled/slurred at baseline -Liver transplant- on list, waiting for organ andoff - Jermaine Vargas RN - 08/11/2019 10:21 AM PDTNursing Handoff Patient Daily Goal: RN advocacy self administer insulin today (08/09/19 0750) Patient Specific Preferences: tv/movies on (07/21/19 0800) [facility] IP NURSE HANDOFF: [facility] hospital course events: Mr. 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 07/26: Episode of SVT. Resolved with bolus. On Tele 07/27: Hemoglobin <7. 1 unit PRBCs. 07/28: Abnormal anion gap. 07/28 Was de-listed for transplant due to arrhythmia. Decision will be made on () if he will be re-listed. 08/07: albumin given 08/07 Placed at top list for liver transplant HYGIENE/INFECTION Patient/Family Target: Donell will have 3-5 BMs today with titrated lactulose doses. Progress to Target: No Change As evidenced by: -Over the last few days, Donell has had 3-4 BM's after taking morning lactulose dose and has not required his afternoon/evening lactulose. -Lactulose dose decreased in DEC due to frequency of stools -TF rate changed to 70mL/hr over 14 hours in hopes of decreasing gastric discomfort -Donell prefers to eat something small with his lactulose to minimize gastric upset RESTORATIVE MEASURES/SELF-MANAGEMENT Patient/Family Target: Donell will participate in his diabetes management cares this shift. Progress to Target: Improving As evidenced by: -Donell has participated (after encouragement from RN) in taking his own CBGs and administer ing his own insulin throughout this shift. Continue to encourage him to manage his CBGs and insulin as independently as possible while admitted. -Per Diabetes RN, he will get pens at home, so no need to teach drawing up insulin. HEALTH PROMOTION Patient/Family Target: Donell will ambulate in hallways 3 times this shift. Progress to Target: Improving As evidenced by: -Donell requested to go on a walk with [employer]K [employer]IVER this morning to "stretch his legs" -Donell ambulated with RN and independently in hallways this shift NURSING ASSESSMENT & RECOMMENDATIONS FORWARD Nursing Assessment of Patient Stability Risk: Moderately stable Recommendations Forward: - TFs run for 12 hours overnight running at 70mL/hr over 14 hours - Titrate BMs to 3-5. - Encourage Donell to check own blood sugars/administer own insulin - SBA in jordan, IND in room: Ambulate in halls TID. - Encourage PO intake during day - Per , dark/ red urine d/t home med Deferiprone - Will require blood transfusion prior to receiving liver: MD wants to wait until viable li charlie available to transfuse. Barriers to discharge: -New diagosis of DM. Requires ongoing Diabetic eduation. -AMS: Intermittently confused, speech garbled/slurred at baseline -Liver transplant- on list, waiting for organ andoff - Angelica Umana RN - 08/10/2019 11:23 PM PDTNursing Handoff Patient Daily Goal: RN advocacy self administer insulin today (08/09/19 0750) Patient Specific Preferences: tv/movies on (07/21/19 0800) [facility] IP NURSE HANDOFF: [facility] hospital course events: Mr. 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 07/26: Episode of SVT. Resolved with bolus. On Tele 07/27: Hemoglobin <7. 1 unit PRBCs. 07/28: Abnormal anion gap. 07/28 Was de-listed for transplant due to arrhythmia. Decision will be made on () if he will be re-listed. 08/07: albumin given 08/07 Placed at top list for liver transplant HYGIENE/INFECTION Patient/Family Target: Donell will have 3-5 BMs today with titrated lactulose doses. Progress to Target: No Change As evidenced by: - Has had 4 loose BMs during day shift. Contacted by GI team in afternoon regarding Donell's frequency of BMs, ordered C. Diff rule out due to symptoms of abdominal cramping and freque nt stools despite only receiving AM lactulose dose. No BM overnight, stool sample still need ed. - Per previous notes, Donell prefers to eat something small with his lactulose to minimize gas tric upset RESTORATIVE MEASURES/SELF-MANAGEMENT Patient/Family Target: Donell will participate in his diabetes management Progress to Target: Deteriorating As evidenced by: Per previous notes Donell states that he does his evening and morning insulin administration s. Per Diabetes RN, he will get pens at home, so no need to teach drawing up insulin. Overnight Donell declined checking his own CBG and administering insulin and stated that "if I do it myself its going to make me want to poop." Continue to encourage him to manage his CB Gs and insulin as independently as possible while admitted. NURSING ASSESSMENT & RECOMMENDATIONS FORWARD Nursing Assessment of Patient Stability Risk: Moderately stable Recommendations Forward: - TFs run for 12 hours overnight running @80ml/hr - Titrate BMs to 3-5. - Encourage Donell to check own blood sugars/administer own insulin - declined overnight - SBA in jordan, IND in room - Encourage PO intake during day - Ambulate in halls TID. - Per MD, dark/ red urine d/t home med Deferiprone - Will require blood transfusion prior to receiving liver: MD wants to wait until viable li charlie available to transfuse. Barriers to discharge: -New diagosis of DM. Requires ongoing Diabetic eduation. -AMS: Intermittently confused, speech garbled/slurred at baseline -Liver transplant- on list, waiting for organ andoff - Lizbet Cardoza RN - 08/10/2019 2:31 PM PDTNursing Handoff Patient Daily Goal: RN advocacy self administer insulin today (08/09/19 0750) Patient Specific Preferences: tv/movies on (07/21/19 0800) [facility] IP NURSE HANDOFF: [facility] hospital course events: Mr. 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 07/26: Episode of SVT. Resolved with bolus. On Tele 07/27: Hemoglobin <7. 1 unit PRBCs. 07/28: Abnormal anion gap. 07/28 Was de-listed for transplant due to arrhythmia. Decision will be made on () if he will be re-listed. 08/07: albumin given 08/07 Placed at top list for liver transplant HYGIENE/INFECTION Patient/Family Target: Donell will have 3-5 BMs today with titrated lactulose doses. Progress to Target: Deteriorating As evidenced by: - Has had 4 loose BMs since morning dose of lactulose. Hold afternoon dose and evening do se of lactulose. May need to decrease dose? -Donell prefers to eat something small with his lactulose to minimize gastric upset RESTORATIVE MEASURES/SELF-MANAGEMENT Patient/Family Target: Donell will participate in his diabetes management Progress to Target: Improving As evidenced by: Donell states that he does his evening and morning insulin administrations. Per Diabetes RN, he will get pens at home, so no need to teach drawing up insulin. Donell succesfully checked h is blood sugar this morning before breakfast. Continue to encourage him to manage his CBGs a nd insulin as independently as possible while admitted. NURSING ASSESSMENT & RECOMMENDATIONS FORWARD Nursing Assessment of Patient Stability Risk: Moderately stable Recommendations Forward: - TFs run for 12 hours overnight running @80ml/hr - Titrate BMs to 3-5. - Encourage Donell to check own blood sugars/administer own insulin - SBA in jordan, IND in room - Encourage PO intake during day - Ambulate in halls TID. - Per MD, dark/ red urine d/t home med Deferiprone - Will require blood transfusion prior to receiving liver: MD wants to wait until viable li charlie available to transfuse. Barriers to discharge: -New diagosis of DM. Requires ongoing Diabetic eduation. -AMS: Intermittently confused, speech garbled/slurred at baseline -Liver transplant- on list, waiting for organ lan of Care - Una Keller, PT - 08/10/2019 2:02 PM PDTFormatting of this note might be different from the martha carisa. Physical Therapy 08/10/2019 2:02 PM Time in: 1315 Time out: 1340 Patient was seen for a total of 25 minutes of direct one on one skilled physical therapy wh ich included 25 minutes of therapeutic activity. Hospital Day: 24 Others present during session other than Physical Therapist and patient: none. Brief Hospital Course: Mr. Lawson is a 54 yo man with spur cell anemia requiring chronic tra nsfusions c/b iron overload, EtOH cirrhosis c/b ascites.Blood type A+, listed for liver tr ansplant,transferred for AMS and falls found to have hyperglycemia and renal insufficiency , hospital course complicated by SVT requiring ICU transfer and amiodarone drip. Work-up has been unremarkable, including a knee aspirate demonstrating findings most consistent with he marthrosis.He'sdemonstrated noovert GI bleeding;so endoscopic work-up for this is unmerited in the setting of known spur cell anemia. Transplant infectious disease hasals o weighed in,with no e/o infection/sepsis as etiology of SVT/afib. In regard to his tachya rrythmia, his cardiac function appears to be compensated and is not a contraindication for t ransplantper se. Has been titrated off amiodarone GTT and downgraded to medicine floors. T achyarrythmia has been wellcontrolled with PO amiodarone and metoprolol and perdiscussio ns withEP attending Dr. Mcintyre, hisSVTs should not preclude pt from transplant and can b e managed in the intra/clara-operative period. If difficult to control despite amio/metop, th loan also offer ablative therapies prior to transplant. Patient has several risk factors for post-LT heart failure though, including ETOH as etiolo gy of heart failure, depressed EF 55-60% (low for hyperdynamics of cirrhosis patient), and i tom deposition in myocardium.Acknowledging these risks, consensus was to proceed with OLT. After discussion with transplantanesthesia and cardiology, will continue amiodarone for h istachyarrythmia. While patient awaits for OLT, would continue to optimize his nutrition with enteral feeding and continue physical therapy/occupationatal therapy. Henrique Chapa MD, 08/10/19. Status Update: Await liver tx. Relevant Precautions: Fall. Subjective: Patient reports frequent use of bathroom on his own. Pain: patient endorses L knee stiffness/discomfort from swelling. Objective: patient sleeping when PT arrived, easily aroused. -jaundice, distended abdomen, pitting edema t/o BLE with JEANNETTE stockings. -anti-gravity movement in all extremities. -good static/dynamic sitting balance. -good static standing balance, fair dynamic standing. -independent bed mobility. -independent transfer without assistive device, steady on feet. -independent walking to/from bathroom, toilet transfer and washing hands at sink without di fficulty. -supervised ambulation in hallway ~ 500' with slow/steady gait. -patient remains in bathroom after PT session. [facility] BASIC MOBILITY Difficulty turning over in bed 4 - None - Modified Independent/Independent Difficulty sitting/standing from chair w/ arms 4 - None - Modified Independent/ Independent Difficulty moving from supine to sitting on edge of bed 4 - None - Modified Independent/Ind ependent Help needed moving from /to chair/wheelchair 4 - None - Modified Independent/Independent Help needed walking in hospital room 4 - None - Modified independent/Independent Help needed climbing 3-5 steps w/railing 3 - A Little - Minimal/Contact Guard Assist/Superv ision [facility] Basic Mobility Total Score 23 Interpretation of [facility] Short Form - Basic Mobility: CMS Modifier (G-Code) Score (in points) % of Functional Impairment, Limitation, or Restrict ion CN 6 100% impaired, limited, restricted CM 7-9 At least 80%, but less than 100% impaired, limited, or restricted CL 10-14 At least 60%, but less than 80% impaired, limited, or restricted CK 15-19 At least 40%, but less than 60% impaired, limited, or restricted CJ 20-22 At least 20%, but less than 40% impaired, limited, or restricted CI 23 At least 1%, but less than 20% impaired, limited, or restricted CH 24 0% impaired, limited, or restricted Predicts discharge post hospitalization ([facility] raw score: 6-24) Home = 20.1 Home with home care = 17.9 long term facility = 13.6 Inpatient rehabilitation facility = 13.6 cd technician care = 11.5 Ben Aguilar. The use of functional outcome measure in acute care to guide discharg e recommendations. J Acute Lean Process Deployment Consultant. 2012;3(3):248. Assessment: Patient presents with improved MS and functional mobility, becoming more indep endent and increasing activity tolerance/ambulation around the unit with supervision. Encour aged daily walks with nursing staff for general conditioning. PT continues to follow 1x/wk f or general conditioning and exercises while waiting for liver tx. See care plan for goals. Activity Recommendation for Nursing: *Nursing to re-assess per shift as needed.* - Routine ambulation 3x/day with supervision. DISCHARGE/DME RECOMMENDATION: Home with assist PRN . Await liver tx. Una Keller, PT, DPT, CCS Should this patient discharge from the hospital prior to the next physical therapy treatmen t, this note shall serve as the discharge summary. [facility] , Tamika, RD - 08/10/2019 12:24 PM PDTFormatting of this note might be different from the martha ginal. Problem: Nutrition Interventions Intervention: Food and nutrient distribution type or amount Note: Calorie count completed with patient meeting </=50% of needs via PO intake; PO + supplement al TF meets 100% of estimated needs. PO intake has been generally stable Nutrition Diagnosis: Pt meets the following criteria suggesting: Severe protein-calorie mal nutrition Energy intake: <75% energy intake compared to energy requirement for > 1 mo Depletion of fat stores: moderate (orbital) Depletion of muscle mass: severe (catholic, shoulder, scapula, clavicle) Fluid accumulation: severe (ascites and significant edema in BLE at least to knee) Rec: - Continue Regular, 2 gm sodium diet with textures per CORPORATE TRAVEL COUNSELOR/MD - Fluids per MD discretion - Premier Protein BID - Sending half portions per patient preference - No need to continue calorie count unless decline in PO suspected - Continue to encourage PO Intake - Continue MVI and vitamin D repletion - Can offer diabetes education as appropriate this admission - Please place referral to outpatient diabetes clinic prior to discharge Intervention: Enteral Nutrition TF started 08/02 and has since been transitioned to a 12 hour nocturnal schedule to supplem ent daytime intake. Potassium, phos, mag within normal limits. Demonstrating improved CBGs - Continue with volume restricted TF formula - Nocturnal administration to promote appetite during the day - TF: Nutren 1.5 @ 80 mL/hr x 12 hr/night (provides 960 ml TF volume, 1440 kcal, 65 g prote in, 733 ml water, 169 g CHO and no fiber daily) - Monitor abd exam, N/V, abd distention - Fluid management per MD - If TF to meet 100% nutrition needs (if PO declines): Nutren 1.5 @ 60 ml/hr (provides 1440 ml TF volume, 2160 kcal, 98 g PRO, 1100 ml water, 253 g CHO and no fiber daily) Following, Tamika Banuelos RD [facility] Pager #[phone] Admitting Dx: Doug Lawson is a 54 y.o. 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 after presenting there with AMS, R k nee trauma due to a fall, hyperglycemia, renal insufficiency Food allergies/intolerances: none noted Diet order: Regular, 2 gm sodium PO: calorie count over last 2 days averaging 675 kcal, 45 g protein Oral nutrition supplement: Premier Protein BID Pertinent Meds: vit D3 50,000 units once weekly, lispro, NPH, lactulose, Mag-Ox, MVI, rifax imin Zinc supplementation completed 08/08 Last BM: 08/09 Skin: jaundiced, 3+ pitting edema to mid [place] Chemistries: Last 72 Hours (or 3 results) - Refreshable Recent Labs 08/08/19 0518 08/09/19 0439 08/10/19 0449 08/10/19 0633 08/10/19 0733 NA 129* -- 128* -- 130* -- -- K 4.9 -- 4.8 -- 4.6 -- -- CL 101 -- 101 -- 101 -- -- BICARB 19* -- 20* -- 19* -- -- BUN 66* -- 74* -- 71* -- -- CR 1.41* -- 1.41* -- 1.40* -- -- GLU 242* < > 217* < > 145* 188* 195* CA 9.2 -- 9.0 -- 8.9 -- -- MG 2.4 -- 2.3 -- 2.6 -- -- PO4 2.9 -- 3.3 -- 3.1 -- -- WBC 4.56 -- 4.27 -- 4.55 -- -- HB 6.7* -- 6.9* -- 6.8* -- -- HCT 20.3* -- 21.2* -- 20.5* -- -- PLT 43* -- 52* -- 49* -- -- MCV 105.2* -- 106.0* -- 105.7* -- -- RDW 75.0* -- 78.1* -- 77.4* -- -- AST 98* -- 91* -- 82* -- -- ALT 64* -- 61* -- 54 -- -- TBILI 9.9* -- 9.9* -- 8.8* -- -- AP 204* -- 208* -- 212* -- -- TP 6.7 -- 6.7 -- 6.5 -- -- ALB 3.3* -- 3.3* -- 3.0* -- -- < > = values in this interval not displayed. No results found for: CHOL, TRI, HDL, LDL, VLDL Lab Results Component Value Date [id number] 19.9 04/21/2019 Lab Results Component Value Date ZINC 31.0 04/23/2019 Lab Results Component Value Date A1C 8.1 (H) 07/17/2019 *A1C not accurate due to hx of frequent transfusions 04/21/2019: retinol 0.21 mg/L (L) would not supplement vitamin A at this point. Possibly falsely low due to reduced hepatic s ynthesis of RBP by diseased liver. Would consider supplementation if retinol <0.15 04/23/2019: MMA 0.34 umol/L, serum copper 72.8 ug/dL CBG Result Av.4 Min: 90 Max: 195 LastCBG Intervention: Medication given (08/10/19 0733) Ht: 71" Current wt: 85.9 kg Dosing wt: 81.6 kg BMI: 25.1 kg/m2 Estimated needs: 7589-1045 kcal (25-30 kcal/kg) and 85-125 gm protein (1-1.5 gm/kg) Wt Readings from Last 4 Encounters: 08/07/19 85.9 kg (189 lb 6 oz) 07/06/19 88.1 kg (194 lb 3.2 oz) 05/20/19 88.2 kg (194 lb 6.4 oz) 05/20/19 88 kg (194 lb) andoff - Sonia Fitzgerald RN - 08/10/2019 2:18 AM PDTNursing Handoff Patient Daily Goal: RN advocacy self administer insulin today (08/09/19 0750) Patient Specific Preferences: tv/movies on (07/21/19 0800) [facility] IP NURSE HANDOFF: [facility] hospital course events: Mr. 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 07/26: Episode of SVT. Resolved with bolus. On Tele 07/27: Hemoglobin <7. 1 unit PRBCs. 07/28: Abnormal anion gap. 07/28 Was de-listed for transplant due to arrhythmia. Decision will be made on () if he will be re-listed. 08/07: albumin given 08/07 Placed at top list for liver transplant As evidenced by: HYGIENE/INFECTION Patient/Family Target: Donell will have 3-5 BMs today with titrated lactulose doses. Progress to Target: Improving As evidenced by: -Had 3 large BM's today: afternoon dose and evening dose of lactulose held -Donell prefers to eat something small with his lactulose to minimize gastric upset NURSING ASSESSMENT & RECOMMENDATIONS FORWARD Nursing Assessment of Patient Stability Risk: Moderately stable Recommendations Forward: - TFs run for 12 hours overnight running @80ml/hr - Titrate BMs to 3-5. - Encourage Donell to check own blood sugars/administer own insulin - SBA w/FWW in [place], IND in room - Encourage PO intake during day - Ambulate in halls TID. - Per MD, dark/ red urine d/t home med Deferiprone - Will require blood transfusion prior to receiving liver: MD wants to wait until viable li charlie available to transfuse. Barriers to discharge: -New diagosis of DM. Requires ongoing Diabetic eduation. -AMS: Intermittently confused, speech garbled/slurred at baseline -Liver transplant- on list, waiting for organ andoff - Arron Vargas, RN - 08/09/2019 10:56 AM PDTNursing Handoff Patient Daily Goal: RN advocacy self administer insulin today (08/09/19 0750) Patient Specific Preferences: tv/movies on (07/21/19 0800) [facility] IP NURSE HANDOFF: [facility] hospital course events: Mr. 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 - 08/07 Placed at top list for liver transplant - 07/28 Was de-listed for transplant due to arrhythmia. Decision will be made on ( 07/30) if he will be re-listed. 07/26: Episode of SVT. Resolved with bolus. On Tele 07/27: Hemoglobin <7. 1 unit PRBCs. 07/28: Abnormal anion gap. 08/07: albumin given As evidenced by: HYGIENE/INFECTION Patient/Family Target: Donell will have 3-5 BMs today with titrated lactulose doses. Progress to Target: Improving As evidenced by: -Donell willingly accepted all of his lactulose doses -Had 3 large BM's today: afternoon dose of lactulose held -Donell prefers to eat something small with his lactulose to minimize gastric upset RESTORATIVE MEASURES/SELF-MANAGEMENT Patient/Family Target: Donell will participate in blood sugar management cares this shift. Progress to Target: Improving As evidenced by: -Sugars varied from 90s-mid 200s this shift -Donell continues to be reluctant when trying to promote any type of independence -When handed materials to check his own blood sugars he was willing to do so -Administered his own insulin for all meals this shift (after a great amount of convincing) -Donell's friends did sneak him 2 [employer] this afternoon, did not greatly escalate blo od sugars -When Donell heard from hepatology that he is at the top of the transplant list, Donell stated he was now "motivated" and willing to try a bit harder to understand what he needs to do to be healthy. HEALTH PROMOTION Patient/Family Target: Donell will walk three laps on the unit today. Progress to Target: Improving As evidenced by: -Donell requires a great amount of encouragement to get OOB -Sat up in chair for meals -Donell walked 2 laps on unit with RN and 1 lap with his friends NURSING ASSESSMENT & RECOMMENDATIONS FORWARD Nursing Assessment of Patient Stability Risk: Moderately stable Recommendations Forward: -TFs run for 12 hours overnight running @80ml/hr - Titrate BMs to 3-5. -Encourage Donell to check own blood sugars/administer own insulin - SBA w/FWW in [place], IND in room - Encourage PO intake during day - Ambulate in halls TID. - Per MD, dark/ red urine d/t home med Deferiprone - Will require blood transfusion prior to receiving liver: MD wants to wait until viable li charlie available to transfuse. Barriers to discharge: -New diagosis of DM. Requires ongoing Diabetic eduation. -AMS: Intermittently confused, speech garbled/slurred at baseline -Liver transplant- on list, waiting for organ andoff - Adam eBnjamin RN - 08/09/2019 4:20 AM PDTNursing Handoff Patient Daily Goal: RN Advocacy: Participate in Diabetes management (08/08/192044) Patient Specific Preferences: tv/movies on (07/21/19 0800) [facility] IP NURSE HANDOFF: [facility] hospital course events: Mr. 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 07/26: Episode of SVT. Resolved with bolus. On Tele 07/27: Hemoglobin <7. 1 unit PRBCs. 07/28: Abnormal anion gap. 08/07: albumin given HYGIENE/INFECTION Patient/Family Target: Donell will have 3-5 BMs today with titrated lactulose doses. Progress to Target: Improving As evidenced by: -PM Lactulose held. Pt reported 4 BM's during the day on 08/08 -1 BM during the night -Donell prefers to eat something small with his lactulose to minimize gastric upset RESTORATIVE MEASURES/SELF-MANAGEMENT Patient/Family Target: Donell will participate in blood sugar management cares this shift. Progress to Target: No Change As evidenced by: -TFs started @ 2200 running 80ml/hr -Sugars varied from 99 to mid 200s overnight -Regular diet with sodium restriction. Donell can order his own meals but often refuses becaus e he thinks "it comes faster if we do it for him." -Donell continues to have very little participation in diabetes education this shift and gets generally reluctant when trying to promote any type of independence -Per dayshift nurse: When Donell heard from hepatology yesterday morning letting him know that he is at the top of the transplant list, Donell stated he was now "motivated" and willing to t ry a bit harder to understand what he needs to do to be healthy. NURSING ASSESSMENT & RECOMMENDATIONS FORWARD Nursing Assessment of Patient Stability Risk: Moderately stable Recommendations Forward: -TFs run for 12 hours overnight running @80ml/hr - Titrate BMs to 3-5. -Encourage Donell to check own blood sugars/administer own insulin - SBA w/FWW in [place], IND in room - Oriented to self and place and intermittently situation. - Encourage PO intake during day - Ambulate in halls TID. - Per MD, dark/ red urine d/t home med Deferiprone Barriers to discharge: -New diagosis of DM. Will need diabetic education when he is no longer confused. -08/04 Divya lissette Educator contacted -AMS -Liver transplant- on list, waiting for organ andoff - Jermaine Vargas RN - 08/08/2019 11:52 AM PDTNursing Handoff Patient Daily Goal: RN advocacy participate in blood sugar management (08/08/19 0800 ) Patient Specific Preferences: tv/movies on (07/21/19 0800) [facility] IP NURSE HANDOFF: [facility] hospital course events: Mr. 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 - Was de-listed for transplant due to arrhythmia. Decision will be made on (07/30) if he will be re-listed. 07/26: Episode of SVT. Resolved with bolus. On Tele 07/27: Hemoglobin <7. 1 unit PRBCs. 07/28: Abnormal anion gap. 08/07: albumin given As evidenced by: HYGIENE/INFECTION Patient/Family Target: Donell will have 3-5 BMs today with titrated lactulose doses. Progress to Target: Improving As evidenced by: -Donell willingly accepted all of his lactulose doses -Had 3 large BM's today -Donell prefers to eat something small with his lactulose to minimize gastric upset RESTORATIVE MEASURES/SELF-MANAGEMENT Patient/Family Target: Donell will participate in blood sugar management cares this shift. Progress to Target: No Change As evidenced by: -TFs started @ 2200 running 80ml/hr -Sugars varied from 70 to mid 200s overnight, now ranging in 100-mid 200s this shift -Regular diet with sodium restriction. Donell can order his own meals but often refuses becaus e he thinks "it comes faster if we do it for him." -Donell continues to have very little participation in diabetes education this shift and gets generally reluctant when trying to promote any type of independence: when handed materials t o check his own blood sugars he was willing to do so, but refused to administer his own insu michaela. -Per dayshift nurse: When Donell heard from hepatology yesterday morning letting him know that he is at the top of the transplant list, Donell stated he was now "motivated" and willing to t ry a bit harder to understand what he needs to do to be healthy. HEALTH PROMOTION Patient/Family Target: Donell will walk three laps on the unit today. Progress to Target: No Change As evidenced by: -Donell requires a great amount of encouragement to get OOB -Sat up in chair for meals -Took 2 walks on unit today with RN NURSING ASSESSMENT & RECOMMENDATIONS FORWARD Nursing Assessment of Patient Stability Risk: Moderately stable Recommendations Forward: -TFs run for 12 hours overnight running @80ml/hr - Titrate BMs to 3-5. -Encourage Donell to check own blood sugars/administer own insulin - SBA w/FWW in [place], IND in room - Oriented to self and place and intermittently situation. - Encourage PO intake during day - Ambulate in halls TID. - Per , dark/ red urine d/t home med Deferiprone Barriers to discharge: -New diagosis of DM. Will need diabetic education when he is no long er confused. -08/04 Knot Borer contacted -AMS -Liver transplant- on list, waiting for organ andoff - Adam Benjamin RN - 08/08/2019 3:54 AM PDTNursing Handoff Patient Daily Goal: "I want 6 hours of sleep" (08/07/192054) Patient Specific Preferences: tv/movies on (07/21/19 0800) [facility] IP NURSE HANDOFF: [facility] hospital course events: Mr. 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 - Was de-listed for transplant due to arrhythmia. Decision will be made on (07/30) if he will be re-listed. 07/26: Episode of SVT. Resolved with bolus. On Tele 07/27: Hemoglobin <7. 1 unit PRBCs. 07/28: Abnormal anion gap. 08/07: albumin given As evidenced by: RESTORATIVE MEASURES/SELF-MANAGEMENT Patient/Family Target: Donell will have adequate nutrition. Progress to Target: Improving As evidenced by: -TFs started @ 2200 running 80ml/hr -Sugars varied from 70 to mid 200s this shift. New PM NPH dose given -Regular diet with sodium restriction. Donell can order his own meals but is refusing because he thinks it comes faster if we do it for him. HEALTH PROMOTION Patient/Family Target: Donell will participate in DM treatment Progress to Target: No Change As evidenced by: Donell became irritated with the MILK DRIVER this shift when attempting to promote independence with CBG's. Donell did very little participation in Diabetes education this shift and gets generall y reluctant when trying to promote any type of independence. Per dayshift nurse: When Donell heard from hepatology this morning that he is at the top of transplant list, Donell stated he was now "motivated" and willing to try a bit harder to unde rstand what he needs to do to be healthy. NURSING ASSESSMENT & RECOMMENDATIONS FORWARD Nursing Assessment of Patient Stability Risk: Moderately stable Recommendations Forward: - Titrate BMs to 3-5. Held PM Lactulose (4 BM's on 08/07) - SBA w/FWW in [place], IND in room - Oriented to self and place and intermittently situation. - Encourage PO during day. TFs NOC. - Ambulate in halls TID. - Per MD, dark/ red urine d/t home med Deferiprone Barriers to discharge: -New diagosis of DM. Will need diabetic education when he is no longer confused. 08/04 Diab etic Educator contacted -AMS -Liver transplant- on list, waiting for organ andoff - Keira Amador RN - 08/07/2019 1:49 PM PDTNursing Handoff Patient Daily Goal: walk today (08/04/19 0915) Patient Specific Preferences: tv/movies on (07/21/19 0800) [facility] IP NURSE HANDOFF: [facility] hospital course events: Mr. 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 - Was de-listed for transplant due to arrhythmia. Decision will be made on (07/30) if he will be re-listed. 07/26: Episode of SVT. Resolved with bolus. On Tele 07/27: Hemoglobin <7. 1 unit PRBCs. 07/28: Abnormal anion gap. 08/07: albumin given SAFETY Patient/Family Target: Donell will increase activity tolerance safely this shift. Progress to Target: Improving As evidenced by: -Ambulated 3 times this shift. -Ind in room. SBA walker. -Ate at chair for all meals this shift. RESTORATIVE MEASURES/SELF-MANAGEMENT Patient/Family Target: Donell will have adequate nutrition. Progress to Target: Improving As evidenced by: -TFs stopped @ 10am - 950mls consumed. -Sugars in 200's this am. Team to increase PM NPH dose. -Regular diet with sodium restriction. Can order his own meals -- encourage this as he is v kenneth particular about it. HEALTH PROMOTION Patient/Family Target: Donell will participate in DM treatment Progress to Target: Improving As evidenced by: Donell becomes easily irritated if RN or MILK DRIVER promote independence with CBG's and insulin adm inistration ("what else do I pay you for?"). When Donell heard from hepatology this morning merlyn t he is at the top of the transplant list, Donell stated he was now "motivated" and willing to try a bit harder to understand what he needs to do to be healthy. This afternoon Donell asked t he MILK DRIVER to take away his bag of candy from the bedside because it was tempting him too much a nd knew it was not good for him. Per night nurse: Donell does not seem to understand importance of DM management and that he wi ll be responsible for managing at home on his own. Recommend to continue educating and reinf orcing DM interventions even when Donell is reluctant to learn. Might be too tremulous at this point in time to draw up insulin, but can check CBG and self-inject insulin with much direct ion required. NURSING ASSESSMENT & RECOMMENDATIONS FORWARD Nursing Assessment of Patient Stability Risk: Moderately stable Recommendations Forward: - Titrate BMs to 3-5. Has had 3 BMs this shift. - SBA w/FWW in [place], IND in room - Oriented to self and place and intermittently situation. - Encourage PO during day. TFs NOC. - Ambulate in halls TID. - Per MD, dark/ red urine d/t home med Deferiprone Barriers to discharge: -New diagosis of DM. Will need diabetic education when he is no longer confused. 08/04 Diab etic Educator contacted -AMS -Liver transplant- on list, waiting for organ [facility] of [place] - Meagan Lim - 08/07/2019 7:42 AM PDT Problem: Nutrition Interventions Intervention: Food and nutrient distribution type or amount Note: Nutrition: Caloric Intake Analysis for 41 Grams PROTEIN, 523 Calories. Figures represent foods eaten at 3 meals. Includes 325 ml o f Premier Protein. Foods recorded as eaten in EPIC. Calorie count complete. Meagan Lim DTR [id number] rian - Ester Benjamin R N - 08/07/2019 4:00 AM PDTNursing Handoff Patient Daily Goal: walk today (08/04/19 0915) Patient Specific Preferences: tv/movies on (07/21/19 0800) [facility] IP NURSE HANDOFF: Tamez hospital course events: Mr. 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 - Was de-listed for transplant due to arrhythmia. Decision will be made on (07/30) if he will be re-listed. 07/26: Episode of SVT. Resolved with bolus. On Tele 07/27: Hemoglobin <7. 1 unit PRBCs. 07/28: Abnormal anion gap. SAFETY Patient/Family Target: Donell will increase activity tolerance safely this shift. Progress to Target: No Change As evidenced by: -SBA with walker, -Ind in room will occasionally call for assistance managing his TF line -Up to chair for meal -Per PT on 08/06, stable on feet but struggles with stairs RESTORATIVE MEASURES/SELF-MANAGEMENT Patient/Family Target: Donell will have adequate nutrition. Progress to Target: Improving As evidenced by: -TFs started at 2200, 80ml/hr -Sugars monitored, checked at 0300 (Per MD, use mealtime sliding scale) -Also on regular diet. Eating 20-70% of meals. Needs help ordering and meal set up. HEALTH PROMOTION Patient/Family Target: Donell will participate in DM treatment Progress to Target: No Change As evidenced by: Donell needs A LOT of encouragement and "tough love" regarding new DM Dx. Donell was agreeable to checking his own CBG once this shift but refused to administer his insulin. He stated "wh y do I have to do everything". Donell does not seem to understand importance of DM management a nd that he will be responsible for managing at home on his own. Recommend to continue educat ing and reinforcing DM interventions even when Donell is reluctant to learn. Might be too tremu lous at this point in time to draw up insulin, but can check CBG and self-inject insulin wit h much direction required. NURSING ASSESSMENT & RECOMMENDATIONS FORWARD Nursing Assessment of Patient Stability Risk: Moderately stable Recommendations Forward: -Check CBG at 0300 (use mealtime sliding scale per MD) - Titrate BMs to 3-5. Has had 2-3 this shift (per pt) - SBA w/FWW in jordan, IND in room - Oriented to self and place and intermittently situation. - Encourage PO during day. TFs NOC. - Ambulate in halls TID. - Per MD, dark/ red urine d/t home med Deferiprone Barriers to discharge: -New diagosis of DM. Will need diabetic education when he is no longer confused. 08/04 Diab etic Educator contacted -[facility] -Liver transplant- on list, waiting for organ andoff - Liliam Edge RN - 08/06/2019 4:54 PM PDTNursing Handoff Patient Daily Goal: walk today (08/04/19 0915) Patient Specific Preferences: tv/movies on (07/21/19 0800) [facility] IP NURSE HANDOFF: Tamez hospital course events: Mr. 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 - Was de-listed for transplant due to arrhythmia. Decision will be made on (07/30) if he will be re-listed. 07/26: Episode of SVT. Resolved with bolus. On Tele 07/27: Hemoglobin <7. 1 unit PRBCs. 07/28: Abnormal anion gap. SAFETY Patient/Family Target: Donell will increase activity tolerance safely this shift. Progress to Target: No Change As evidenced by: -SBA with walker, -Ind in room will occasionally call for assistance managing his TF line -Up to chair for meal -Encourage supervised walks around the unit -Per PT, stable on feet but struggles with stairs RESTORATIVE MEASURES/SELF-MANAGEMENT Patient/Family Target: Donell will have adequate nutrition. Progress to Target: Improving As evidenced by: -TFs started at 2200 -Sugars monitored, checked at 0300 -Also on regular diet. Eating 20-70% of meals. Needs help ordering and meal set up. HEALTH PROMOTION Patient/Family Target: Donell will participate in DM treatment Progress to Target: No Change As evidenced by: Donell struggles to be motivated to participate in DM teaching and treatment. This AM, Donell r equired much encouragement from RN to use lancet and also to inject insulin. RN voiced rickie rn regarding Donell's reluctance to participate in DM cares, and Donell was eventually receptive. Needs A LOT of encouragement and "tough love." Donell does not seem to understand importance of DM management. Recommend to continue educating and reinforcing DM interventions even when T om is reluctant to learn. Might be too tremulous at this point in time to draw up insulin, b ut can check CBG and self-inject insulin with much direction required. NURSING ASSESSMENT & RECOMMENDATIONS FORWARD Nursing Assessment of Patient Stability Risk: Moderately stable Recommendations Forward: -Check CBG at 0300. - Titrate BMs to 3-5. Has had 3 so far. - SBA w/FWW in jordan, IND in room - Oriented to self and place and intermittently situation. - Encourage PO during day. TFs NOC. - Ambulate in halls TID. - Per MD, dark/ red urine d/t home med Deferiprone Barriers to discharge: -New diagosis of DM. Will need diabetic education when he is no long er confused. 08/04 Knot Borer contacted -[facility] - Liver transplant- on list, waiting for organ lan of Care - Trisha Mccullough, PT - 08/06/2019 11:47 AM PDTFormatting of this note might be different from the or iginal. Physical Therapy 08/06/2019 11:47 AM Hospital Day # 20. Patient seen on 5A. Others present in room aside from patient and PT: rehab student Time in: 09 Time out: 929 Patient was seen for a total of 30 minutes of direct one on one skilled physical therapy wh ich included 15 minutes of gait training and 15 minutes of therapeutic exercise. Brief Hospital Course: Mr. Lawson is a 54 year old male with ESLD 2/2 EtOH c/b hepatic ence phalopathy, ascites, spur cell anemia requiring chronic transfusions and resulting in iron o verload, who presented with HRS and developed SVT resulting in admission to the floor on 07/22 where he will wait for a liver. Status Update: none Relevant Precautions: Fall risk (cognitive, impulsivity) Subjective: Patient agreeable to working with therapy. "I'll do whatever you want". Pain: no c/o pain Vitals: Stable per observation. Objective: Patient received supine in bed. Performed therapeutic exercise of heel slides, quad sets, straight leg raise, x10 Transferred supine > sit independently. sit to stand x8 without upper extremity support. Physical therapy session paused to allow tube feed to finish and be disconnected. Session resumed after x45 minutes of rest. Dynamic Gait Index Test component Score Tamez Score 07/17/2019 1. Gait Level Surface (3) Normal--Walks 6 m (20 ft) in less than 5.5 seconds, no assistive devices, good speed, no evidence for imbalance, normal gait pattern, deviates no more than 15 cm (6 in) outside of the 30cm (12-in) walkway width} (2) Mild impairment--Walks 6 m (20 ft) in less than 7 seconds but greater than 5.5 seconds, uses assistive device, slower speed, mild gait deviations, or deviates 15-25. cm (6-10 in) outside of the 30 cm (12-in) walkway width. (1) Moderate impairment--Walks 6 m (20 ft), slow speed, abnormal gait pattern, evidence for imbalance, or deviates 25 cm (10-15 in) outside of the 30.cm (12-in) walkway width. Require s more than 7 seconds to ambulate 6 m (20 ft). (0) Severe impairment--Cannot walk 6 m (20 ft) without assistance, severe gait deviations o r imbalance, deviates greater than 38 cm (15 in) outside of the 30.cm (12-in) walkway width or reaches and touches the wall. 3 2. Change in gait speed (3) Normal--Able to smoothly change walking speed without loss of balance or gait deviation. Shows a significant difference in walking speeds between normal, fast, and slow speeds. Deviates no more than 15 cm (6 in) outside of the 30-cm (12-in) walk way width. (2) Mild impairment--Is able to change speed but demonstrates mild gait deviations, deviate s 15-25. cm (6-10 in) outside of the 30-cm (12-in) walkway width, or no gait deviations but unable to achieve a significant change in velocity, or uses an assistive device. (1) Moderate impairment--Makes only minor adjustments to walking speed, or accomplishes a c hange in speed with significant gait deviations, deviates 25.-38. cm (10-15 in) outside the 30-cm (12-in) walkway width, or changes speed but loses balance but is able to recover and c ontinue walking. (0) Severe impairment--Cannot change speeds, deviates greater than 38. cm (15 in) outside 3 0.-cm (12-in) walkway width, or loses balance and has to reach for wall or be caught. 3 3. Gait with horizontal head turns (3) Normal--Performs head turns smoothly with no lopez ge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 - Was de-listed for transplant due to arrhythmia. Decision will be made on (07/30) if he will be re-listed. 07/26: Episode of SVT. Resolved with bolus. On Tele 07/27: Hemoglobin <7. 1 unit PRBCs. 07/28: Abnormal anion gap. SAFETY Patient/Family Target: Donell will increase activity tolerance safely this shift. Progress to Target: No Change As evidenced by: -SBA with walker, -Bed alarm -Donell called appropriately and did not set off the bed alarm this shift -Up to chair for meal -Encourage supervised walks around the unit RESTORATIVE MEASURES/SELF-MANAGEMENT Patient/Family Target: Donell will have adequate nutrition. Progress to Target: Improving As evidenced by: -TFs started at 2200 -Sugars monitored, checked at 0300 -Also on regular diet. Eating 20-70% of meals. Needs help ordering and meal set up. NURSING ASSESSMENT & RECOMMENDATIONS FORWARD Nursing Assessment of Patient Stability Risk: Moderately stable Recommendations Forward: -Check CBG at 0300. - Titrate BMs to 3-5. Has had 1 so far. - SBA w/FWW. - Oriented to self and place and intermittently situation. - Encourage PO during day. TFs NOC. - Ambulate in halls TID. - Per MD, dark/ red urine d/t home med Deferiprone Barriers to discharge: -New diagosis of DM. Will need diabetic education when he is no long er confused. 08/04 [facility] contacted -[facility] - Liver transplant- on hold pending improved nutrition. andoff - Aleta Alejandra RN - 08/04/2019 6:43 PM PDTNursing Handoff Patient Daily Goal: walk today (08/04/19 0915) Patient Specific Preferences: tv/movies on (07/21/19 0800) [facility] IP NURSE HANDOFF: [facility] hospital course events: Mr. 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 - Was de-listed for transplant due to arrhythmia. Decision will be made on (07/30) if he will be re-listed. 07/26: Episode of SVT. Resolved with bolus. On Tele 07/27: Hemoglobin <7. 1 unit PRBCs. 07/28: Abnormal anion gap. SAFETY Patient/Family Target: Donell will increase activity tolerance safely this shift. Progress to Target: No Change As evidenced by: -SBA with walker, -Donell needs reminders not to get OOB without assistance d/t forgetfullnes. He did not set th e bed alarm off this shift and consistently called appropriately. -Up in chair today -Ambulated in halls x2 with SBA and walker. RESTORATIVE MEASURES/SELF-MANAGEMENT Patient/Family Target: Donell will have adequate nutrition. Progress to Target: Improving As evidenced by: -TFs stopped at 1100. -Also on regular diet. Eating 20-70% of meals. Needs help ordering and meal set up. NURSING ASSESSMENT & RECOMMENDATIONS FORWARD Nursing Assessment of Patient Stability Risk: Moderately stable Recommendations Forward: -Check CBG at 0300. - Titrate BMs to 3-5. Has had 1 so far. - SBA w/FWW. - Oriented to self and place and intermittently situation. - Encourage PO during day. TFs NOC. - Ambulate in halls TID. - Per MD, dark/ red urine d/t home med Deferiprone Barriers to discharge: -New diagosis of DM. Will need diabetic education when he is no long er confused. 08/04 [facility] contacted -AMS - Liver transplant- on hold pending improved nutrition. andoff - Nicholas Rmoan RN - 08/03/2019 6:23 PM PDTNursing Handoff Patient Daily Goal: fall risk, skin intact (08/01/19 0843) Patient Specific Preferences: tv/movies on (07/21/19 0800) [facility] IP NURSE HANDOFF: [facility] hospital course events: Per MD: Mr. 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 - Was de-listed for transplant due to arrhythmia. Decision will be made on (07/30) if he will be re-listed. 07/26: Episode of SVT. Resolved with bolus. On Tele 07/27: Hemoglobin <7. 1 unit PRBCs. 07/28: Abnormal anion gap. SAFETY Patient/Family Target: Donell will increase activity tolerance safely this shift. Progress to Target: No Change As evidenced by: -SBA with walker, -Donell Needs reminders not to get OOB without assistance. He did not set the bed alarm off t his shift and consistently called appropriately. -Ambulated in halls x3 with SBA and walker. RESTORATIVE MEASURES/SELF-MANAGEMENT Patient/Family Target: Donell will have adequate nutrition. Progress to Target: Improving As evidenced by: -TFs stopped at 1400. Plan to start him on Nocturnal TFs to promote PO intake during day. -Also on regular diet. Eating 20-70% of meals. Needs help ordering and meal set up. NURSING ASSESSMENT & RECOMMENDATIONS FORWARD Nursing Assessment of Patient Stability Risk: Moderately stable Recommendations Forward: -Check CBG at 1200 and 0600 as TFs are new. MDs will adjust insuli n tomorrow based on needs. - Titrate BMs to 3-5. Has had 3 so far. - SBA w/FWW. - Oriented to self and place and intermittently situation. - Encourage PO during day. TFs NOC. - Ambulate in halls TID. - Per MD, dark/ red urine d/t home med Deferiprone Barriers to discharge: -New diagosis of DM. Will need diabetic education when he is no long er confused. - Contact [facility] when appropriate. -AMS - Liver transplant- on hold pending improved nutrition. lan of Care - Richard Barron CCC-CORPORATE TRAVEL COUNSELOR - 08/03/2019 8:51 AM PDTFormatting of this note might be different fro m the original. Speech Language Pathology Treatment Time in: 834 Time out: 08 Pt was seen for a total of 14 minutes of direct one on one skilled Speech Language Therapy which included 14 minutes of dysphagia therapy. Review of patient's hospitalization since last visit: No acute events. Seen on 5A SUBJECTIVE: Pt awake upon entry. Pt agreeable to follow-up. States "I wanted to eat in pea ce this morning, so I changed [the time] up." Pt states he opted to advance his diet since l ast follow-up, now on regular menu. Pt chewing piece of melon leftover from breakfast prior to PO trials. OBJECTIVE: Precautions: none Patient participation was fair. Patient was positioned upright in bed. Pain was not rpeorted. Respiratory status was stable on room air. DHT in place Parties present: JAYDE Vera administering medications Dysphagia: Oral care: fibrous piece of melon present in oral cavity, otherwise unremakrable Feeding: independent PO trials: Thin liquids: 60cc via cup and straw Soft solids: x2 bites Oral: Fair bolus acceptance. Prolonged but effective bolus prep of solid textures. No ora l residue after swallowing. Pharyngeal: Timely swallow initiation. No overt s/sx aspiration noted Esophageal comments: none Strategies trialed: small sips/bites Education: Focus this session to patient includes aspiration precautions and basic anatomy and physiology of swallowing. Education Outcome: Patient able to verbalize understanding of this information. Bed Alarm engaged at end of session ASSESSMENT: Pt demonstrating grossly functional oral and pharyngeal stages of swallowing. Mastication of solid textures is prolonged but effective. No overt s/sx aspiration noted. Pr evious CORPORATE TRAVEL COUNSELOR recommendation was for min chew solids to help ease burden of mastication, andrese r Pt now opting for regular menu. Recommend Pt continue with current diet as tolerated, opti ng for softer menu items. No further CORPORATE TRAVEL COUNSELOR intervention recommended at this time. Please feel free to reconsult this service if there are further concerns re oropharyngeal dysphagia. Swallowing - LEVEL 5: Swallowing is safe with minimal diet restriction and/or occasionally requires minimal cueing to use compensatory strategies. The individual may occasionally self -cue. All nutrition and hydration needs are met by mouth at mealtime. PLAN/RECOMMENDATIONS: Diet: REGULAR solids, THIN liquids -self-select softer food items Medications whole as tolerated Aspirations precautions: ? set-up assistance as needed ? eat/drink slowly ? small sips/bites ? fully upright for all PO ? stay upright for 30-60' after intake ? dc PO for s/s of aspiration (increased cough, worsening respiratory status, increased tem p) DISCHARGE RECOMMENDATIONS: D/c acute care CORPORATE TRAVEL COUNSELOR intervention -reconsult this service if there are further concerns re oropharyngeal dysphagia Richard Sinha MA, CCC-CORPORATE TRAVEL COUNSELOR Speech-Language Pathologist Pager# [phone] signed by Richard Sinha CCC-CORPORATE TRAVEL COUNSELOR at 08/03/2019 8:57 AM PDTHand off - Graciela Scherer RN - 08/03/2019 5:42 AM PDTNursing Handoff Patient Daily Goal: fall risk, skin intact (08/01/19 0843) Patient Specific Preferences: tv/movies on (07/21/19 0800) [facility] IP NURSE HANDOFF: [facility] hospital course events: Per MD: Mr. 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 - Was de-listed for transplant due to arrhythmia. Decision will be made on (07/30) if he will be re-listed. 07/26: Episode of SVT. Resolved with bolus. On Tele 07/27: Hemoglobin <7. 1 unit PRBCs. 07/28: Abnormal anion gap. SAFETY Patient/Family Target: Donell will increase activity tolerance safely this shift. Progress to Target: Improving As evidenced by: -SBA with FWW -Up to bathroom several times this shift - Refused to take walk on unit, pt stated he was too tired -Donell used call light appropriately this shift and did not set off bed alarm RESTORATIVE MEASURES/SELF-MANAGEMENT Patient/Family Target: Donell will have adequate nutrition. Progress to Target: Improving As evidenced by: -TFs at goal this shift. No nausea or abd pain reported. -Continued to encourage PO intake -Pt stated that he doesn't have much of an appetite -Also on regular diet. Eating 20-70% of meals. Needs help ordering and meal set up. -Breakfast ordered for patient this shift! NURSING ASSESSMENT & RECOMMENDATIONS FORWARD Nursing Assessment of Patient Stability Risk: Moderately unstable Recommendations Forward: -Check CBG Q6 hours, Pt on continuous TF at 40ml/hour. - Titrate BMs to 3-5. - SBA w/FWW. - A&O x2-4, waxes and wanes - Continue to encourage PO intake. - Ambulate in halls TID. - Per , dark/ red urine d/t home med Deferiprone Barriers to discharge: -New diagosis of DM. Will need diabetic education when he is no long er confused. - Contact [facility] when appropriate. -AMS - Liver transplant- Listed. andoff - Dwight Roman RN - 08/02/2019 2:56 PM PDTNursing Handoff Patient Daily Goal: fall risk, skin intact (08/01/19 0843) Patient Specific Preferences: tv/movies on (07/21/19 0800) [facility] IP NURSE HANDOFF: [facility] hospital course events: Per MD: Mr. 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 - Was de-listed for transplant due to arrhythmia. Decision will be made on (07/30) if he will be re-listed. 07/26: Episode of SVT. Resolved with bolus. On Tele 07/27: Hemoglobin <7. 1 unit PRBCs. 07/28: Abnormal anion gap. SAFETY Patient/Family Target: Donell will increase activity tolerance safely this shift. Progress to Target: Improving As evidenced by: -SBA with walker, Sometimes needs assist to stand from toilet. -Donell Needs reminders not to get OOB without assistance. He did not set the bed alarm off t his shift and consistently called appropriately. -Ambulated in halls x3 with SBA and walker. -Also took shower and stood for duration of it. HYGIENE/INFECTION Patient/Family Target: Donell will have a shower today. Progress to Target: Improving As evidenced by: Showered! RESTORATIVE MEASURES/SELF-MANAGEMENT Patient/Family Target: Donell will have adequate nutrition. Progress to Target: Improving As evidenced by: -TFs started this shift. Titrating to goal. Tolerating so far without nausea/abd pain etc . -Due to titrate to goal rate of 40mls/hr at 1999. -Also on regular diet. Eating 20-70% of meals. Needs help ordering and meal set up. -DHT bridled this shift. NURSING ASSESSMENT & RECOMMENDATIONS FORWARD Nursing Assessment of Patient Stability Risk: Moderately unstable Recommendations Forward: -Check CBG at 1200 and 0600 as TFs are new. MDs will adjust insuli n tomorrow based on needs. - Titrate BMs to 3-5. Has had 3 so far. - SBA w/FWW. - Oriented to self and place - Encourage PO. Titrate up TFs to goal. - Ambulate in halls TID. - Per MD, dark/ red urine d/t home med Deferiprone Barriers to discharge: -New diagosis of DM. Will need diabetic education when he is no long er confused. - Contact [facility] when appropriate. -AMS - Liver transplant- Listed. lan of Care - Meagan Pinto - 08/02/2019 7:23 AM PDT Problem: Nutrition Interventions Intervention: Food and nutrient distribution type or amount Note: Nutrition: Caloric Intake Analysis for 08/01/2019 89 Grams PROTEIN, 1,253 Calories. Figures represent foods eaten at 3 meals, and 2 snacks. I ncludes 650 ml of Premier Protein. Foods recorded as eaten in EPIC. Calorie count complete. Meagan Lim DTR [id number] andoff - Alfreda Prado RN - 08/02/2019 4:44 AM PDTNursing Handoff Patient Daily Goal: fall risk, skin intact (08/01/19 0843) Patient Specific Preferences: tv/movies on (07/21/19 0800) [facility] IP NURSE HANDOFF: [facility] hospital course events: Per MD: Mr. 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 - Was de-listed for transplant due to arrhythmia. Decision will be made on (07/30) if he will be re-listed. 07/26: Episode of SVT. Resolved with bolus. On Tele 07/27: Hemoglobin <7. 1 unit PRBCs. 07/28: Abnormal anion gap. SAFETY Patient/Family Target: Donell will increase activity tolerance safely this shift. Progress to Target: Improving As evidenced by: -High fall risk d/t confusion, deconditioning, -SBA with walker, Sometimes needs assist to stand from toilet. -Donell Needs reminders not to get OOB without assistance. He did not set the bed alarm off t his shift and consistently called appropriately. RESTORATIVE MEASURES/SELF-MANAGEMENT Patient/Family Target: Donell will increase his PO intake this shift. Progress to Target: Improving As evidenced by: -DH Tube placed 08/01 to promote increased caloric and protein intake. -Donell ate most of his dinner this shift and showed no signs of difficulty swallowing. Donell sa id he was looking forward to eating and needed minimal encouragement and queing needed by dominick eduardo RN. -Edge of bed or up to chair for meals. Progress to Target: No Change NURSING ASSESSMENT & RECOMMENDATIONS FORWARD Nursing Assessment of Patient Stability Risk: Moderately unstable Recommendations Forward: - Titrate BMs to 3-5. - SBA w/FWW. Contact guard. - Oriented to self and place - Encourage PO! -Per MD, dark/ red urine d/t home med Deferiprone Barriers to discharge: -New diagosis of DM. Will need diabetic education when he is no long er confused. -New acidosis -AMS - Liver transplant? lan of Care - Meagan Lim - 08/01/2019 8:42 AM PDT Problem: Nutrition Interventions Intervention: Food and nutrient distribution type or amount Note: Nutrition: Caloric Intake Analysis for 07/31/2019 76 Grams PROTEIN, 963 Calories. Figures represent foods eaten at 3 meals, and 1 snack. Incl udes 325 ml of Premier Protein and 450 ml of Odwalla Protein. Foods recorded as eaten in EPI C. Will continue to follow. Meagan Lim DTR [id number] andoff - Alfreda Prado RN - 08/01/2019 2:22 AM PDTNursing Handoff Patient Daily Goal: fall risk, skin care, nutriition support. (07/31/19 0851) Patient Specific Preferences: tv/movies on (07/21/19 0800) [facility] IP NURSE HANDOFF: Tamez hospital course events: Per MD: Mr. 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 - Was de-listed for transplant due to arrhythmia. Decision will be made on (07/30) if he will be re-listed. 07/26: Episode of SVT. Resolved with bolus. On Tele 07/27: Hemoglobin <7. 1 unit PRBCs. 07/28: Abnormal anion gap. SAFETY Patient/Family Target: Donell will increase activity tolerance safely this shift. Progress to Target: Improving As evidenced by: -High fall risk d/t confusion, deconditioning, -SBA with walker, Sometimes needs assist to stand from toilet. -Donell needs cueing with ADL's and reminders not to get OOB without assistance. -Ambulating to BR. RESTORATIVE MEASURES/SELF-MANAGEMENT Patient/Family Target: Delirium precautions will be instituted and he will meet his goal lof 3 BMs to prevent wo rsening confusion. Progress to Target: No Change As evidenced by: -Disoriented to time and situation. Lethargic and Slow to respond but alert, conversant, and happy -Titrating lactulose to 3 BMs. 2 BM's this shift. - Activity promoted. Chair for meals. Progress to Target: No Change NURSING ASSESSMENT & RECOMMENDATIONS FORWARD Nursing Assessment of Patient Stability Risk: Moderately unstable Recommendations Forward: - Titrate BMs to 3-5. One BM day shift - SBA-1PA w/FWW. Cueing. Contact guard. - Oriented to self and place - Encourage PO! -Per MD, dark/ red urine d/t home med Deferiprone Barriers to discharge: -New diagosis of DM. Will need diabetic education when he is no long er confused. -New acidosis -AMS - Liver transplant? lan of Care - Ami Bennett CCC-CORPORATE TRAVEL COUNSELOR - 07/31/2019 2:50 PM PDTFormatting of this note might be different from t he original. Speech Language Pathology Treatment Time in: 1430 Time out: 1450 Pt was seen for a total of 20 minutes of direct one on one skilled Speech Language Therapy which included 20 minutes of dysphagia therapy Review of pt's hospitalization since last visit: Patient reporting increased difficulty ea ting solid foods and team changing patient to minimal chew solids to see if that makes eatin g easier and increases intake, continues on 5A. S: "I just can't eat food right now. That hamburger was just too hard." O: Pt was seen for the following skilled therapy today: dysphagia tx. Pt participation was good. Pt was positioned upright in bed. Pain: not evident or reported Respiratory St atus: stable on RA Trials: thin liquids x 3 oz via straw, puree x 5 bites, minimal chew x 6 bites, mechanical soft x 3 bites, regular x 3 bites Feeding: independent after set up assistance Oral Phase: good lip seal and bolus containment, slow but adequate bolus formation, manipul ation, slow but complete mastication with all trials (increased speed of oral clearance with puree/minimal chew solids vs mechanical soft/regular) no oral residue with any trial. Pharyngeal phase: Timely swallow initiation, hyolaryngeal elevation webb and grossly compl ete to palpation. No cough, throat clear, audible pharyngeal pooling, change in vocal quali ty, or respiratory status following any PO trial. Bed alarm engaged at the end of the session. Education: Focus this session to patient includes aspiration precautions. Education Outcome : Patient able to verbalize understanding. A: Patient continues with grossly functional oropharyngeal swallow function and demonstrat ed adequate ability to safely tolerate all consistencies today. Patient with slowly oral tasha mario preparation/clearance with mechanical soft/regular solids vs puree/minimal chew solids. Patient now changed to minimal chew diet to possibly improving po intake and ease burden of oral bolus preparation. From CORPORATE TRAVEL COUNSELOR perspective, if patient requests to be changed back to wi chanical soft/regular menu that would be ok. Would recommend nursing assist with ordering s ofter foods from this menu to help patient identify foods he can eat. Swallowing - LEVEL 4: Swallowing is safe, but usually requires moderate cues to use compens atory strategies, and/or the individual has moderate diet restrictions and/or still requires tube feeding and/or oral supplements. P: Recommendations: DW patient's nurse MINIMAL CHEW and THIN LIQUIDS -meal set up and intermittent supervision -upright 90 degrees for all PO -small bites/sips -slow rate -alternate liquids and solids -d/c PO for s/sx aspiration (increased cough, decreased resp status, increased temp) DISCHARGE RECOMMENDATIONS: Continue therapy while in house and at next level of care Continue per CORPORATE TRAVEL COUNSELOR POC Ami Bennett MS CCC-CORPORATE TRAVEL COUNSELOR Speech Language Pathologist Pgr [phone] lan of Care - [facility], January, RD - 07/31/2019 10:05 AM PDT Problem: Nutrition Interventions Intervention: Food and nutrient distribution type or amount Note: Calorie count restarted yesterday with patient demonstrating improved intake but still inad equate, particularly overall caloric intake (met 50% est kcal needs & 100% est protein needs ). Also noted that his poor nutrition status is a barrier to transplant. Team discussed DHT with him yesterday but he declined; reassessing today. New diagnosis of diabetes; A1C 8.1% Nutrition Diagnosis: Pt meets the following criteria suggesting: Severe protein-calorie mal nutrition Energy intake: <75% energy intake compared to energy requirement for > 1 mo Depletion of fat stores: moderate (orbital) Depletion of muscle mass: severe (catholic, shoulder, scapula, clavicle) Fluid accumulation: severe (ascites and significant edema in BLE at least to knee) Rec: - Liberalize diet as feasible to promote intake; textures per CORPORATE TRAVEL COUNSELOR/MD - Continue calorie count & Premier Protein - Monitor lytes, replete prn - To supplement low vitamins and minerals: - Daily MVI without iron - Vitamin D: 50,000 units cholecalciferol once weekly x 8 weeks then 2000 units cholecalcif sandra/day for maintenance - Continue daily zinc sulfate for one more week - Can offer diabetes education as appropriate this admission - Please place referral to outpatient diabetes clinic prior to discharge Intervention: Enteral Nutrition Noted DHT attempted, but have been unable to place. Patient would likely benefit from TF if able to place tube. - For supplemental TF: Nutren 1.5 (Volume restricted; 1.5 kcal/mL in EPIC), initiate at 20 mL/hr, advance by 10-15 ml q4h to goal continuous rate 40 ml/hr (provides 960 ml TF volume, 1440 kcal, 65 g protein, 733 ml water, 169 g CHO and no fiber daily) - Monitor electrolytes, replete low levels as needed; slow TF advancement if having altered electrolytes - Monitor abd exam, N/V, abd distention - Water flushes per MD; recommend minimum 30 mL q4h to maintain feeding tube patenc y - When tolerating TF at goal rate, transition to nocturnal cyclic feeds to promote oral int iman during day: Nutren 1.5, 80 mL/hr x 12 hrs (to provide same as above). - If TF to meet 100% nutrition needs (if PO declines): Nutren 1.5 (Volume restricted; 1.5 k julia/mL in EPIC), goal rate 60 ml/hr (provides 1440 ml TF volume, 2160 kcal, 98 g PRO, 1100 m l water, 253 g CHO and no fiber daily) Following, January Vin [facility] Pager #[phone] Admitting Dx: Doug Lawson is a 54 y.o. 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 after presenting there with AMS, R k nee trauma due to a fall, hyperglycemia, renal insufficiency Food allergies/intolerances: none noted Diet order: Diabetic, 2 gm sodium, mech soft PO: 07/30 julia count 107 g protein, 977 kcal Pertinent Meds: lispro, NPH, lactulose, rifaximin, Zn sulfate 220 mg daily (7 doses so far) Last BM: 07/30 Skin: jaundice, 1+ pitting edema to mid [place] Chemistries: Last 72 Hours (or 3 results) - Refreshable Recent Labs 07/29/19 0537 07/30/19 0523 07/30/19 2158 07/31/19 0441 07/31/19 0837 NA 134* -- 131* -- -- 132* -- K 4.6 -- 4.3 -- -- 4.3 -- CL 107 -- 104 -- -- 104 -- BICARB 17* -- 19* -- -- 21 -- BUN 37* -- 39* -- -- 39* -- CR 1.04 -- 1.05 -- -- 1.04 -- GLU 210* < > 222* < > 194* 204* 187* CA 8.8 -- 8.7 -- -- 9.0 -- WBC 5.54 -- 3.94 -- -- 4.09 -- HB 8.0* -- 6.8* -- -- 8.0* -- HCT 23.9* -- 19.9* -- -- 23.2* -- PLT 28* -- 27* -- -- 26* -- MCV 102.6* -- 100.5* -- -- 98.3 -- RDW 65.5* -- 61.6* -- -- 61.1* -- AST 85* -- 68* -- -- 75* -- ALT 44 -- 39 -- -- 45 -- TBILI 12.8* -- 10.5* -- -- 11.3* -- AP 119 -- 123 -- -- 133* -- TP 7.0 -- 6.3* -- -- 6.6 -- ALB 3.2* -- 2.9* -- -- 3.0* -- < > = values in this interval not displayed. Ref. Range 04/21/2019 08:39 RETINOL (VITAMIN A) Latest Ref Range: 0.30 - 1.20 mg/L 0.21 (L) * would not supplement vitamin A at this point. Possibly falsely low due to reduced hepatic synthesis of RBP by diseased liver. Would consider supplementation if retinol <0.15 No results found for: CHOL, TRI, HDL, LDL, VLDL Lab Results Component Value Date [id number] 19.9 04/21/2019 Lab Results Component Value Date ZINC 31.0 04/23/2019 Ref. Range 04/23/2019 16:28 COPPER SERUM Latest Ref Range: 70.0 - 140.0 ug/dL 72.8 Lab Results Component Value Date A1C 8.1 (H) 07/17/2019 Ref. Range 04/23/2019 16:28 METHYLMALONIC ACID Latest Ref Range: 0.00 - 0.40 umol/L 0.34 CBG Result Av.8 Min: 187 Max: 233 LastCBG Intervention: Medication given (07/30/19 170) Ht: 71" Current wt: 81.6 kg BMI: 25.1 kg/m2 Estimated needs: 1338-5818 kcal (25-30 kcal/kg) and 85-125 gm protein (1-1.5 gm/kg) Wt Readings from Last 4 Encounters: 07/17/19 81.6 kg (180 lb) 07/06/19 88.1 kg (194 lb 3.2 oz) 05/20/19 88.2 kg (194 lb 6.4 oz) 05/20/19 88 kg (194 lb) lan of Ramila - Meagan Pinto - 07/31/2019 9:34 AM PDT Problem: Nutrition Interventions Intervention: Food and nutrient distribution type or amount Note: Nutrition: Caloric Intake Analysis for 07/30/2019 107 Grams PROTEIN, 977 Calories. Figures represent foods eaten at 3 meals. Includes 650 ml of Premier Protein. Foods recorded as eaten in EPIC. Will continue to follow. Meagan Lim DTR [id number] andoff - Dipesh Hendrix RN - 07/31/2019 7:10 AM PDTNursing Handoff Patient Daily Goal: RN advocacy: Pt will ambulate in hallway 2x this shift (07/30/19 0855) Patient Specific Preferences: tv/movies on (07/21/19 0800) [facility] IP NURSE HANDOFF: Tamez hospital course events: Per MD: Mr. 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 - Was de-listed for transplant due to arrhythmia. Decision will be made on (07/30) if he will be re-listed. 07/26: Episode of SVT. Resolved with bolus. On Tele 07/27: Hemoglobin <7. 1 unit PRBCs. 07/28: Abnormal anion gap. 08/01 DHT placed and exray to confirm placement completed, notified and pending confirma tion of placement. 08/01 Telemetry notified me of the QT interval of 540 SAFETY Patient/Family Target: Donell will increase activity tolerance safely this shift. Progress to Target: Improving As evidenced by: -High fall risk d/t confusion, deconditioning, -SBA with walker, Sometimes needs assist to stand from toilet. -Donell needs cueing with ADL's and reminders not to get OOB without assistance. -Ambulating to BR and in the hallway Saturday RESTORATIVE MEASURES/SELF-MANAGEMENT Patient/Family Target: Delirium precautions will be instituted and he will meet his goal lof 3 BMs to prevent wo rsening confusion. Progress to Target: Improving As evidenced by: -Disoriented to time and situation. Lethargic and Slow to respond but alert, conversant, and happy -Titrating lactulose to 3 BMs. two BM this shift as a goal. - Lights on. Curtains open. Activity promoted. Chair for meals. Ambulating in jordan with SBA . Progress to Target: No Change NURSING ASSESSMENT & RECOMMENDATIONS FORWARD Nursing Assessment of Patient Stability Risk: Moderately unstable Recommendations Forward: - Titrate BMs to 3-5. One BM Saturday day shift - SBA-1PA w/FWW. Cueing. Contact guard. - Oriented to self and place - Encourage PO! -Per , dark/ red urine d/t home med Deferiprone 08/01 DHT placed, xray ordered pending approval Barriers to discharge: -New diagosis of DM. Will need diabetic education when he is no long er confused. -New acidosis -AMS - Liver transplant? andoff - Meagan Hall RN - 07/30/2019 6:16 PM PDTNursing Handoff Patient Daily Goal: RN advocacy: Pt will ambulate in hallway 2x this shift (07/30/19 0855) Patient Specific Preferences: tv/movies on (07/21/19 0800) [facility] IP NURSE HANDOFF: Tamez hospital course events: Per MD: Mr. 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 - Was de-listed for transplant due to arrhythmia. Decision will be made on (07/30) if he will be re-listed. 07/26: Episode of SVT. Resolved with bolus. On Tele 07/27: Hemoglobin <7. 1 unit PRBCs. 07/28: Abnormal anion gap. SAFETY Patient/Family Target: Donell will increase activity tolerance safely this shift. Progress to Target: Improving As evidenced by: -High fall risk d/t confusion, deconditioning, -SBA with walker, Sometimes needs assist to stand from toilet. -Ambulated 1 full lap with RN and again with PT. -Needs cueing. -Ambulating to BR. -Up to chair for meals. RESTORATIVE MEASURES/SELF-MANAGEMENT Patient/Family Target: Delirium precautions will be instituted and he will meet his goal lof 3 BMs to prevent wo rsening confusion. Progress to Target: No Change As evidenced by: -Disoriented to time and situation. Lethargic and Slow to respond but alert, conversant, and happy -Titrating lactulose to 3 BMs. Received both doses of scheduled lactulose. NO BMS this shif t - Lights on. Curtains open. Activity promoted. Chair for meals. Ambulating in jordan with SBA . HEALTH PROMOTION Patient/Family Target: Will eat at least 50% of three meals. Will have no aspiration. Progress to Target: No Change As evidenced by: -Poor nutrition, still with decreased appetite. -Ate 75% of breakfast with 100% supplement drink. -Ate 5 % of lunch with 100% of supplement drink. -Ate 27 % of dinner -No longer 1:1 supervision, needs to be fully upright for meals NURSING ASSESSMENT & RECOMMENDATIONS FORWARD Nursing Assessment of Patient Stability Risk: Moderately unstable Recommendations Forward: - Titrate BMs to 3-5. NO BM today - SBA-1PA w/FWW. Cueing. Contact guard. - Oriented to self and place - Encourage PO! -Per MD, dark/ red urine d/t home med Deferiprone Barriers to discharge: -New diagosis of DM. Will need diabetic education when he is no long er confused. -New acidosis -AMS - Liver transplant? lan of Care - Shirley Dominguez, PT - 07/30/2019 5:48 PM PDTFormatting of this note might be different from the or iginal. Goal: Functional Mobility Goal Description Patient independent supine to sit to supine with use of bed features via log roll Patient independent sit to stand to sit with use of front wheeled walker from standard ch air Patient independent transfer bed to chair to bed with use of front wheeled walker Patient contact guard assistance gait with front wheeled walker 50 feet, gait speed 0.6m/s Patient performs 2 set(s) of 10 repetitions of shoulder elevation , elbow flexion and exten arjun , wrist flexion and extension , hand open and close , ankle pumps , heelslides , SAQ , hip abduction/addution . Patient without AROM deficits bilateral UEs and LEs in supine or sitting Outcome: Gradual progress toward goal Physical Therapy 07/30/2019 5:53 PM Admit Date : 07/17/2019 Hospital Day: 13 Age : 54 y.o. Time in: 1600 Time out: 1625 Patient was seen for a total of 25 minutes of direct one on one skilled physical therapy wh ich included 25 minutes of therapeutic activities Brief Hospital Course: Seen at bedside this morning. Encephalopathy stable from yesterday, continues to wax and wane. AAOx2 today, still with great sense of humor and personality. Per nursing, ate majority of his breakfast this morning with minimal assistance. Denies any new concerns or complaints. No chest pain or palpitations. No worsening knee pain. As per MD notes,07/30/19 Past Medical History: Diagnosis Date Cirrhosis (HCC) CKD (chronic kidney disease) Status Update: no acute changes Relevant Precautions: Fall risk, cognitive Subjective: Patient agreed to work with PT "I can walk some more." Pain: unable to rate- right knee pain Objective: Patient received sitting in chair,RN present in room, Patient performed bilateral lower extremity -hip flexion,long arc quads and ankle toe movem ents -10 reps each- active range of motion Scooting forward and back in chair, modified independent, using bilateral arm rest, Sit to stand with front wheeled walker- contact guard assistance, verbal cues for correct h and and feet placement Patient ambulated 300 feet with front wheeled walker, contact guard assistance , verbal cue s for navigation, obstacle clearance, no loss of balance, no buckling of knee, reduced step length and gait speed, reduced foot clearance, cues for safe feet and walker distance Standing with bilateral railing support - standing on toes,heels, hip flexion , extension a nd abduction- 5 reps, contact guard assistance Patient education on lower extremity strength training exercises,importance of ambulation. Patient vitals stable pre and post therapy session,asymptoamtic Patient was left in chair,call pearson within reach and RN was notified [facility] BASIC MOBILITY Difficulty turning over in bed 3 - A Little - Minimal/Contact Guard Assist/Supervision Difficulty sitting/standing from chair w/ arms 3 - A Little - Minimal/Contact Guard Assist/ Supervision Difficulty moving from supine to sitting on edge of bed 3 - A Little - Minimal/contact Guar d Assist/Supervision Help needed moving from /to chair/wheelchair 3 - A Little - Minimal/Contact Guard Assist/S upervision Help needed walking in hospital room 3 - A Little - Minimal/Contact Guard assist/Supervisio n Help needed climbing 3-5 steps w/railing 3 - A Little - Minimal/Contact Guard Assist/Superv ision [facility] Basic Mobility Total Score 18 Assessment: Patient was oriented to self and place today.Patient showed increased activity tolerance to ambulation in today's session,Patient has fair standing dynamic balance, durabl e medical equipment- contact guard assistance for safe ambulation.Patient needs increased ti me to respond,follows 1-2 step commands-verbal and tactile cues help.Patient has bilateral p edal edema,general anasarca This patient has good rehabilitation potential to achieve stated goals and requires contin ued skilled physical therapy rehabilitation services - gait training ,neuromuscular re-educa tion,therapeutic activities to meet his goals. Interpretation of [facility] Short Form - Basic Mobility: CMS Modifier (G-Code) Score (in points) % of Functional Impairment, Limitation, or Restriction CN 6 100% impaired, limited, restricted CM 7-9 At least 80%, but less than 100% impaired, limited, or restricted CL 10-14 At least 60%, but less than 80% impaired, limited, or restricted CK 15-19 At least 40%, but less than 60% impaired, limited, or restricted CJ 20-22 At least 20%, but less than 40% impaired, limited, or restricted CI 23 At least 1%, but less than 20% impaired, limited, or restricted CH 24 0% impaired, limited, or restricted See care plan for goals. Updated Plan & Recommendations: ACTIVITY PLAN: *Nursing to re-assess per shift as needed.* - Lights on and curtains open during day hours. - Routine distance ambulation 3x/day with front wheeled walker and 1 person assist. - Up to chair 3 x/day for meals and as needed with front wheeled walker and [address] Discharge Recommendations: 24 hour assist;Continued PT at next level of care DME needed at discharge: front wheeled walker RN was notified of discharge recommendations. Should this patient discharge from the hospital prior to the next physical therapy treatmen t, this note shall serve as the discharge summary. Shirley Ochoa PT #[id number] signed by Shirley Ochoa PT at 07/30/2019 5:53 PM PDTPlan of Care - Ami Huitron, [facility]-CORPORATE TRAVEL COUNSELOR - 07/30/2019 10:42 AM PDTFormatting of this note might be different f rom the original. Speech Language Pathology Treatment Time in: 1025 Time out: 1045 Pt was seen for a total of 20 minutes of direct one on one skilled Speech Language Therapy which included 20 minutes of dyspagia therapy Review of pt's hospitalization since last visit: no acute events, continues on 5A. S: "These crackers are delightful" O: Pt was seen for the following skilled therapy today: dysphagia tx. Pt participation was fair to good. Pt was positioned upright in bed. Pain: not evident or reported. Respi ratory Status: stable on RA. Trials: thin liquids x 4 oz via large bore straw, regular x 1/2 packet of crackers Feeding: independent after set up Oral Phase: Slow but adequate bolus formation, manipulation, mastication. No oral bolus res idue Pharyngeal phase: Timely initiation. No cough, throat clear, audible pharyngeal pooling, ch hollie in vocal quality, or respiratory status following any trial. Bed alarm engaged at the end of the session. Education: Focus this session to patient includes aspiration precautions. Education Outcome : Patient able to verbalize basic understanding. A: Patient presents with improving oropharyngeal swallow function and demonstrated adequat e safety and tolerance with regular solids and thin liquids without difficulty or signs and symptoms aspiration. Recommend set up assistance and intermittent supervision with po intak e. Swallowing - LEVEL 6: Swallowing is safe, and the individual eats and drinks independently and may rarely require minimal cueing. The individual usually self-cues when difficulty occu rs. May need to avoid specific food items (e.g., popcorn and nuts), or require additional ti me (due to dysphagia). P: Recommendations: DW patient's nurse Meagan and pg to Dr Waddell REGULAR and THIN LIQUIDS as tolerated -meal set up and then close intermittent supervision -eliminate environmental distractions during meal times -upright 90 degrees for all PO -small bites/sips -slow rate -alternate liquids and solids -d/c PO for s/sx aspiration (increased cough, decreased resp status, increased temp) DISCHARGE RECOMMENDATIONS: Continue therapy while in house and at next level of care Continue per CORPORATE TRAVEL COUNSELOR POC Ami Bennett MS CCC-CORPORATE TRAVEL COUNSELOR Speech Language Pathologist Pgr [phone] andoff - Federico Sloan RN - 07/30/2019 5:21 AM PDTNursing Handoff Patient Daily Goal: go for a walk (07/29/19799) Patient Specific Preferences: tv/movies on (07/21/19799) [facility] IP NURSE HANDOFF: Tamez hospital course events: Per MD: Mr. 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 - Was de-listed for transplant due to arrhythmia. Decision will be made on (07/30) if he will be re-listed. 07/26: Episode of SVT. Resolved with bolus. On Tele 07/27: Hemoglobin <7. 1 unit PRBCs. 07/28: Abnormal anion gap. NURSING ASSESSMENT & RECOMMENDATIONS FORWARD Nursing Assessment of Patient Stability Risk: Moderately unstable Recommendations Forward: - Titrate BMs to 3-5. 2 BM so far today - SBA-1PA w/FWW. Cueing. Contact guard. - Oriented to self and place - Encourage PO! Needs assistance ordering. Watch for pocketing. - Ongoing hematuria- MDs aware and believe its due to kidney stone. Save urine sample for t hem to see color. Barriers to discharge: -New diagosis of DM. Will need diabetic education when he is no long er confused. -New acidosis - AMS - Liver transplant? lan of Care - Shirley Dominguez, PT - 07/29/2019 7:05 PM PDTFormatting of this note might be different from the or iginal. Goal: Functional Mobility Goal Description Patient independent supine to sit to supine with use of bed features via log roll Patient independent sit to stand to sit with use of front wheeled walker from standard ch air Patient independent transfer bed to chair to bed with use of front wheeled walker Patient contact guard assistance gait with front wheeled walker 50 feet, gait speed 0.6m/s Patient performs 2 set(s) of 10 repetitions of shoulder elevation , elbow flexion and exten arjun , wrist flexion and extension , hand open and close , ankle pumps , heelslides , SAQ , hip abduction/addution . Patient without AROM deficits bilateral UEs and LEs in supine or sitting Outcome: Gradual progress toward goal Physical Therapy 07/29/2019 7:06 PM Admit Date : 07/17/2019 Hospital Day: 12 Age : 54 y.o. Time in: 1800 Time out: 1823 Patient was seen for a total of 23 minutes of direct one on one skilled physical therapy wh ich included 23 minutes of therapeutic activities Brief Hospital Course: Seen at bedside this morning. Encephalopathy stable from yesterday, continues to wax and wane. AAOx2 today, still with great sense of humor and personality. Per nursing, ate majority of his breakfast this morning with minimal assistance. Denies any new concerns or complaints. No chest pain or palpitations. No worsening knee pain. As per MD notes,07/29/19 Past Medical History: Diagnosis Date Cirrhosis (HCC) CKD (chronic kidney disease) Status Update: no acute changes Relevant Precautions: Fall risk, cognitive Subjective: Patient agreed to work with PT "I can try going for a walk." Pain: unable to rate- right knee pain Objective: Patient seen supine in bed,HOB 45 degree, In bed, lower extremity strength training exercises- ankle toe movements,heel slides, hip f lexion, hip abduction 5 reps each, active range of motion ,bilateral lower extremity ,needs increased time- tactile and verbal cues as required Supine to edge of bed- standby,log roll, left side, verbal cues for correct hand and feet p lacement, needs increased time, railing support, Patient performed bilateral lower extremity -hip flexion,long arc quads and ankle toe movem ents -10 reps each- active range of motion Sit to stand with front wheeled walker- min assist, verbal cues for correct hand and feet p lacement Patient ambulated 150 feet with front wheeled walker, contact guard assistance , verbal cue s for navigation, obstacle clearance, no loss of balance, no buckling of knee, reduced step length and gait speed Patient education on lower extremity strength training exercises,importanc of ambulation. Patient vitals stable pre and post therapy session,asymptoamtic Patient was left in bed,safety alarm on,call pearson within reach and RN was notified [facility] BASIC MOBILITY Difficulty turning over in bed 3 - A Little - Minimal/Contact Guard Assist/Supervision Difficulty sitting/standing from chair w/ arms 3 - A Little - Minimal/Contact Guard Assist/ Supervision Difficulty moving from supine to sitting on edge of bed 3 - A Little - Minimal/contact Guar d Assist/Supervision Help needed moving from /to chair/wheelchair 3 - A Little - Minimal/Contact Guard Assist/S upervision Help needed walking in hospital room 3 - A Little - Minimal/Contact Guard assist/Supervisio n Help needed climbing 3-5 steps w/railing 3 - A Little - Minimal/Contact Guard Assist/Superv ision [facility] Basic Mobility Total Score 18 Assessment: Patient is oriented to self.Patient has fair standing dynamic balance, durable medical equipment- contact guard assistance for safe ambulation.Patient needs increased time to respond,follows 1-2 step commands-verbal and tactile cues help This patient has good rehabilitation potential to achieve stated goals and requires contin ued skilled physical therapy rehabilitation services - gait training ,neuromuscular re-educa tion,therapeutic activities to meet his goals. Interpretation of [facility] Short Form - Basic Mobility: CMS Modifier (G-Code) Score (in points) % of Functional Impairment, Limitation, or Restriction CN 6 100% impaired, limited, restricted CM 7-9 At least 80%, but less than 100% impaired, limited, or restricted CL 10-14 At least 60%, but less than 80% impaired, limited, or restricted CK 15-19 At least 40%, but less than 60% impaired, limited, or restricted CJ 20-22 At least 20%, but less than 40% impaired, limited, or restricted CI 23 At least 1%, but less than 20% impaired, limited, or restricted CH 24 0% impaired, limited, or restricted See care plan for goals. Updated Plan & Recommendations: ACTIVITY PLAN: *Nursing to re-assess per shift as needed.* - Lights on and curtains open during day hours. - Routine distance ambulation 3x/day with front wheeled walker and 1 person assist. - Up to chair 3 x/day for meals and as needed with front wheeled walker and [address] Discharge Recommendations: 24 hour assist;Continued PT at next level of care DME needed at discharge: front wheeled walker RN was notified of discharge recommendations. Should this patient discharge from the hospital prior to the next physical therapy treatmen t, this note shall serve as the discharge summary. Next visit: gait training Shirley Ochoa, PT #[id number] signed by Shirley Ochoa PT at 07/29/2019 7:13 PM PDTPlan of Care - R Tayler elizabeth MS,CCC-CORPORATE TRAVEL COUNSELOR - 07/29/2019 4:31 PM PDTSpeech-Language Pathologist Attempt: Attempted to follow-up with patient for dysphagia treatment, however despite multiple attem pts, patient unable to rouse to an adequate degree to safely participate in session. Per issa se report, patient doing well with current diet, mental status/alertness known to wax/wane t hroughout the day. Speech-Language Pathologist will continue to follow per established POC. Tayler Olea M.S., CCC-CORPORATE TRAVEL COUNSELOR Pager #[phone] andoff - Shiv Flores, JAYDE - 07/29/2019 4:00 AM PDTNursing Handoff Patient Daily Goal: RN Advocacy: 2 BM this shift (07/27/191940) Patient Specific Preferences: tv/movies on (07/21/19 0800) [facility] IP NURSE HANDOFF: Tamez hospital course events: Per MD: Mr. 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 - Was de-listed for transplant due to arrhythmia. Decision will be made on (07/30) if he will be re-listed. 07/26: Episode of SVT. Resolved with bolus. On Tele 07/27: Hemoglobin <7. 1 unit PRBCs. 07/28: Abnormal anion gap. RESTORATIVE MEASURES/SELF-MANAGEMENT Patient/Family Target: Delirium precautions will be instituted and he will meet his goal lof 3 BMs to prevent wo rsening confusion. Progress to Target: No Change As evidenced by: -Disoriented to time and situation. Lethargic and Slow to respond but more alert, convers ant, and happy today than yesterday. Calling appropriately -Titrating lactulose to 3 BMs. 2 BMs during dayshift, met goal with final BM on operation shift supervisor . - Lights on. Curtains open. Activity promoted. Chair for meals. Ambulating in jordan with SBA . HEALTH PROMOTION Patient/Family Target: Donell will remain hemodynamically stable this shift. Progress to Target: No Change As evidenced by: Donell's HGB had dipped down to <7 two days prior, gave 1 unit RBC. 07/28 AM was 7.5, late evening was 8.5. Donell's urine is a blood tinged red and has been for several days. No urete ral discomfort, VS stable, no other evidence of bleeding. night team has concerns for bl eeding, though they believe it may be rt existing renal stones. Urine sample showed to MDs. NURSING ASSESSMENT & RECOMMENDATIONS FORWARD Nursing Assessment of Patient Stability Risk: Moderately unstable Recommendations Forward: - Titrate BMs to 3-5. 2 BM so far today - SBA-1PA w/FWW. Cueing. Contact guard. - Oriented to self and place - Encourage PO! Needs assistance ordering. Watch for pocketing. - Ongoing hematuria- MDs aware and believe its due to kidney stone. Save urine sample for t hem to see color. Barriers to discharge: -New diagosis of DM. Will need diabetic education when he is no long er confused. -New acidosis - AMS - Liver transplant? lan of Care - Juhi Bruce MD - 07/28/2019 10:28 PM PDTWas called to the bedside for patient with bright red blood in toilet- patient currently encephalopathic in the setting of liver disease. Patient unsure whether blood in toilet from urination or bowel movement, but to my eye do n ot see any bowel movement, mostly red water. Vital signs 107/56 pulse 63 satting 100% on RA Did not have blood around urethral meatus SUMIT showing no blood around perineal area, SUMIT was painful to patient/ uncomfortable- SUMIT w ith whiping on paper wasn't red/dark/or tarry without noticeable blood on glove Nursing staff saying that urine has been bright red for many days since been taking care of patient, however, I have not heard about this over night or been signed out this informatio n until being called to the bedside. Patient currently HDS, with negative SUMIT and blood arou nd urethral meatus. Will repeat CBC with diff and make sure hgb not dropping & monitor for a ny signs of DIC (in setting of coagulopathy). If dropping will likely call GI, and transfuse as necessary. Of note, patient does have imaging on 05/19 showing non obstructive kidney sto ne of 4 mm in left midpole without hydronephrosis which I wonder could be contributing. Will continue to monitor patient closely. Repeat: hgb stable at 8.5 with platelets stable at 31 (improved from 24)- have no heard of repeat episodes of bleeding- patient currently sleeping- will not transfuse at this time- c an reassess if needed Juhi Cavanaugh MD PGY-2 andoff - Jody Roman RN - 07/28/2019 4:04 PM PDTNursing Handoff Patient Daily Goal: RN Advocacy: 2 BM this shift (07/27/191940) Patient Specific Preferences: tv/movies on (07/21/19 0800) [facility] IP NURSE HANDOFF: Tamez hospital course events: Per MD: Mr. 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 - Was de-listed for transplant due to arrhythmia. Decision will be made on (07/30) if he will be re-listed. 07/26: Episode of SVT. Resolved with bolus. On Tele 07/27: Hemoglobin <7. 1 unit PRBCs. 07/28: Abnormal anion gap. SAFETY Patient/Family Target: Donell will increase activity tolerance safely this shift. Progress to Target: Improving As evidenced by: -High fall risk d/t confusion, deconditioning, -Some ataxia, contact guard as sometimes he kicks his walker with his foot -SBA with walker, Sometimes needs assist to stand from toilet. -Ambulated full length of 5c jordan x2 today. -Needs cueing. -Called for assistance about 50% of the time. Has VMT and bed/chair alarm in place. -Ambulating to BR. -Up to chair for meals. RESTORATIVE MEASURES/SELF-MANAGEMENT Patient/Family Target: Delirium precautions will be instituted and he will meet his goal lof 3 BMs to prevent wo rsening confusion. Progress to Target: No Change As evidenced by: -Disoriented to time and situation. Lethargic and Slow to respond but more alert, convers ant, and happy today than yesterday. -Titrating lactulose to 3 BMs. 1 extra large and 1 small BM so far today. - Lights on. Curtains open. Activity promoted. Chair for meals. Ambulating in jordan with SBA . HEALTH PROMOTION Patient/Family Target: Will eat at least 50% of three meals. Will have no aspiration. Progress to Target: No Change As evidenced by: -Poor nutrition. -Did not tolerated DHT. -Ate 60% of breakfast with 100% supplement drink. -Ate 20 % of lunch with 100% of supplement drink. -1:1 Supervision. Can feed himself but is very slow, needs cueing. Some pocketing but no s/ s of aspiration this shift. NURSING ASSESSMENT & RECOMMENDATIONS FORWARD Nursing Assessment of Patient Stability Risk: Moderately unstable Recommendations Forward: - Titrate BMs to 3-5. 2 BM so far today - SBA-1PA w/FWW. Cueing. Contact guard. - Oriented to self and place - Crush pills in pudding. - Encourage PO! Needs assistance ordering. Watch for pocketing. - Ongoing hematuria- MDs aware and believe its due to kidney stone. Save urine sample for t hem to see color. Barriers to discharge: -New diagosis of DM. Will need diabetic education when he is no long er confused. -New acidosis - AMS - Liver transplant? lan of Care - Glenis Patton, RUTH ANN-CORPORATE TRAVEL COUNSELOR - 07/28/2019 3:54 PM PDT [id number] DOUG LAWSON Date of : 1965 Start of care: 07/17/2019 Date of onset: 07/28/19 Referring/Attending Practitioner: Des Gamez MD Primary/Referral Diagnosis/ICD-9: K70.31 Alcoholic cirrhosis of liver with ascites (HCC) I47.1 SVT (supraventricular tachycardia) (HCC) Insurance: Payor: [facility] [place] / Plan: [facility] / Product Type: Medicaid / Service period from:07/28/19 to:08/27/2019 (30 day period). Speech Language Pathology - DYSPHAGIA Evaluation Medical Course: " a 54 y/owith ESLD 2/ EtOH c/b hepatic encephalopathy, a scites, spur cell anemia requiring chronic transfusions and resulting in iron overload, who presented with HRS and developed SVT resulting in admission to the MICU where he was loaded with amiodarone and then was transferred to the floor on 07/22 where he will wait for a liver ." - Dr Julian Feliciano Previous Medical History: Past Medical History: Diagnosis Date Cirrhosis (HCC) CKD (chronic kidney disease) Past Surgical History Procedure Laterality Date Leg surgery Orders received for swallow evaluation given encephalopathy. Patient seen on 5C. Current Diet: Mechanical soft solids and thin liquids pending swallow eval PLOF: patient reports no baseline dysphagia (though he is a poor historian) Patient's participation during today's bedside swallow evaluation was fair, patient require d occasional repetition of instructions. Patient was positioned upright in bed at 90 degree s. Pain was not observed or reported. Registered Nurse reports pocketing of cheese omelet t his morning, but no difficulties at lunch. Respiratory status: No acute respiratory distress on room air Oral Mechanism Examination: Largely unremarkable - adequate strength, rate, range of motio n and symmetry of tongue, lips, jaw and soft palate. Natural dentition. Strong cough. Presentations: Cup/straw sips of thin liquid, teaspoons puree x5-6, bites of a soft and carver rd solid Oral Phase: adequate oral acceptance and bolus containment, timely manipulation, mildly pr olonged mastication of solids, timely posterior pushback of bolus, no post-swallow residue. No pocketing observed Pharyngeal Phase: Swallow initiation appeared timely, no change in post-swallow vocal qual ity, no overt clinical signs/symptoms of penetration/aspiration observed throughout session Education: Focus this session to patient includes aspiration precautions. Education Outcome : Patient able to verbalize. The patient has good rehabilitation potential to achieve stated goals (see Care Plan for go als) and requires continued rehabilitation services, given the patient's medical condition i s such that the skills of a therapist are required for monitoring and adjustment of interven tions, specifically potential for dysphagai. Impressions: Patient presents with a very mild, if not normal, oral dysphagia characterize d by mildly prolonged mastication of solids. Registered Nurse reports pocketing of cheese om elet at breakfast this morning, though no pocketing was observed on evaluation today. No ove rt clinical signs/symptoms of penetration/aspiration observed throughout session. Patient ap pears safe to continue on current diet texture, so long as safe swallow strategies, includin g 1:1 supervision, are closely followed. Goal: Patient will tolerated least restrictive diet without clinical S/S aspiration. Swallowing - LEVEL 6: Swallowing is safe, and the individual eats and drinks independently and may rarely require minimal cueing. The individual usually self-cues when difficulty occu rs. May need to avoid specific food items (e.g., popcorn and nuts), or require additional ti me (due to dysphagia). Recommendations: Maintain MECHANICAL SOFT solids and THIN liquids, as tolerated -1:1 supervision -Upright 90 degrees for all PO -Small bites/sips -Ensure patient's mouth is cleared at end of meal -Ensure frequent oral care -d/c PO for s/sx aspiration (increased cough, decreased resp status, increased temp) DISCHARGE RECOMMENDATIONS: Speech-language pathology treatment while in-house and at next level of care. Plan: Initiate Speech Language Pathologist treatment 5x/week. D/W Patient's Registered Nurse Glenis Patel., CCC-CORPORATE TRAVEL COUNSELOR Speech Language Pathologist Pager #[phone] lan of Care - Elizabeth Hickey, RD - 07/28/2019 8:28 AM PDTFormatting of this note might be different from th e original. Problem: Nutrition Interventions Intervention: Food and nutrient distribution type or amount Calorie count completed (07/24-07/26); 3-day average intake of 533 kcal and 59 gm protein (th is meets 26% estimated kcal needs and 72% estimated protein needs). Kcal intake inadequate, but patient doing ok with protein d/t drinking Premier Protein. Recs: - Continue current diet, encourage intake - Can offer oral supplements prn if po intake poor - Monitor lytes, replete prn - To supplement low vitamins and minerals: - Daily MVI without iron - Zinc: 110 mg zinc sulfate (25 mg elemental zinc)/day x 2-3 months - Vitamin A: 2 tabs of 10,000 unit vitamin A 3x/week x 3 months - Vitamin D: 50,000 units ergocalciferol q 7 days x 8 weeks then 2000 units cholecalciferol /day for maintenance Intervention: Enteral Nutrition Noted DHT attempted, but have been unable to place. Patient would likely benefit from TF if able to place tube. Recs: - Rec starting supplemental TF to meet remaining needs: Nutren 1.5 (Volume restricted; 1.5 kcal/mL in EPIC), initiate at 20 mL/hr, advance by 10-15 ml q4h to goal continuous rate 40 m l/hr (provides 960 ml TF volume, 1440 kcal, 65 g protein, 733 ml water, 169 g CHO and no fib er daily) - Monitor electrolytes, replete low levels as needed; initiate/advance TF only if l ytes WNL - Monitor abd exam, N/V, abd distention; hold TF if sign of intolerance - Water flushes per MD; recommend minimum 30 mL q4h to maintain feeding tube patenc y - When tolerating TF at goal rate, transition to nocturnal cyclic feeds to promote oral int iman during day: Nutren 1.5, 80 mL/hr x 12 hrs (to provide same as above). - If TF to meet 100% nutrition needs (if PO declines): Nutren 1.5 (Volume restricted; 1.5 k julia/mL in EPIC), goal rate 60 ml/hr (provides 1440 ml TF volume, 2160 kcal, 98 g PRO, 1100 m l water, 253 g CHO and no fiber daily) Nutrition Diagnosis: Pt meets the following criteria suggesting:Severe protein-calorie malnutrition Energy intake:<75% energy intake compared to energy requirementfor > 1 mo Depletion of fat stores:moderate(orbital) Depletion of muscle mass:severe(catholic, shoulder, scapula, clavicle) Fluid accumulation:severe(ascites and significant edema in BLE at least to knee) Following, Elizabeth Marshall, MS, RD, LD, [facility] Pager #: [phone] Note: Admitting Dx: Doug Lawson is a 54 y.o. 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 after presenting there with AMS, R k nee trauma due to a fall, hyperglycemia, renal insufficiency Food allergies/intolerances: none noted Diet order: Regular; PO: see calorie count Pertinent Labs: reviewed Pertinent Meds: lispro, NPH, lactulose, rifaximin, Zn sulfate Last BM: 07/28 Skin: jaundice Ht: 71" | Weight: 81.6 kg | Admit BMI: 25.1 kg/m Weight change: Wt Readings from Last 10 Encounters: 07/17/19 81.6 kg (180 lb) 07/06/19 88.1 kg (194 lb 3.2 oz) 05/20/19 88.2 kg (194 lb 6.4 oz) 05/20/19 88 kg (194 lb) 05/18/19 88.9 kg (196 lb) 04/24/19 86.2 kg (190 lb 0.6 oz) 04/21/19 83.9 kg (185 lb) 04/21/19 84.4 kg (186 lb) 03/19/19 81.6 kg (180 lb) 03/18/19 83.5 kg (184 lb) Estimated needs: 4525-7932 kcal (25-30 kcal/kg) and 82-123 gm protein (1-1.5 gm/kg)Electron ically signed by Elizabeth Marshall RD at 07/28/2019 9:11 AM PDTHandoff - Mirian Kennedy RN - 07/28/2019 2:16 AM PDTNursing Handoff Patient Daily Goal: RN Advocacy: 2 BM this shift (07/27/191940) [facility] HEALTH CARE IP NURSE HANDOFF: [facility] hospital course events: Per MD: Mr. 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 07/26: Episode of SVT. Resolved with bolus. On Tele 07/27: Hemoglobin <7. 1 unit PRBCs. SAFETY Patient/Family Target: Donell will use call light for toileting, needs prior to getting OOB. Donell's H/H will remain stable. Progress to Target: Improving As evidenced by: -High fall risk d/t confusion, deconditioning, unbalanced at times -SBA with walker, Sometimes needs assist to stand from toilet. -Not calling- VMT in place. 2 OOB attempts without calling. 1x he did call for assistance t o BR. -Bed alarm on. -Up to BR x 2. -Donell has voided 2x on to the floor -Donell is having hematuria (dark red urine) -1 unit PRBC received 07/27 -F/u labs drawn today with H/H of 7.5/21.7 RESTORATIVE MEASURES/SELF-MANAGEMENT Patient/Family Target: Donell will not experience worsening confusion Progress to Target: No Change As evidenced by: -Disoriented to time and situation. Lethargic. Slow to respond. -Titrating lactulose to 3 BMs. 1BM this shift. 1 PRN dose given in addition to scheduled do ses. -Remained lethargic. No change in mentation noted today. NURSING ASSESSMENT & RECOMMENDATIONS FORWARD Nursing Assessment of Patient Stability Risk: Moderately unstable Recommendations Forward: - Titrate BMs to 3-5. - SBA-1PA w/FWW to BR--dependent on pt's level of orientation/arousal level, utilize more a ssistance PRN if increasingly confused - Oriented to self and place - Increased difficulty initiating swallow. Recommend crushing meds and giving with applesau ce or pudding - Encourage PO! Needs assistance ordering - Ongoing hematuria- MDs aware and believe its due to kidney stone. Barriers to discharge: -New diagosis of DM. Will need diabetic education when he is no long er confused. - AMS - Liver transplant (was listed but then listed inactive due to heart arrhythmia) andoff - Jody Roman RN - 07/27/2019 6:00 PM PDTNursing Handoff Patient Daily Goal: RN advocacy: OOB x3, 3 BMs (07/27/19802) Patient Specific Preferences: tv/movies on (07/21/19 08) [facility] IP NURSE HANDOFF: [facility] hospital course events: Per MD: Mr. 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 07/26: Episode of SVT. Resolved with bolus. On Tele 07/27: Hemoglobin <7. 1 unit PRBCs. SAFETY Patient/Family Target: Donell will ambulate safely OOB Progress to Target: Improving As evidenced by: -High fall risk d/t confusion, deconditioning, -SBA with walker, Sometimes needs assist to stand from toilet. -Not calling- VMT in place. No unassisted out of bed attempts today. VMT called x1. Alarm o n. -Ambulated in halls x1. -Up to chair x1 -Up to BR x 2. RESTORATIVE MEASURES/SELF-MANAGEMENT Patient/Family Target: Donell will not experience worsening confusion Progress to Target: No Change As evidenced by: -Disoriented to time and situation. Lethargic. Slow to respond. -Titrating lactulose to 3 BMs. 1 so far today. 1 PRN dose given in addition to scheduled do ses. - Lights on. Curtains open. Activity promoted. -Remained lethargic. No change in mentation noted today. HEALTH PROMOTION Patient/Family Target: Will eat at least 50% of three meals. Will have no aspiration. As evidenced by: -Poor nutrition. -Did not tolerated DHT. -Ate 70% of breakfast with 100% supplement drink. -Ate 50% of lunch with 100% of supplement drink. -Dinner ordered. -1:1 Supervision. Can feed himself but is very slow, needs cueing. Some pocketing but no s/ s of aspiration this shift. NURSING ASSESSMENT & RECOMMENDATIONS FORWARD Nursing Assessment of Patient Stability Risk: Moderately unstable Recommendations Forward: - Titrate BMs to 3-5. 1 BM so far today - SBA-1PA w/FWW to BR--dependent on pt's level of orientation/arousal level, utilize more a ssistance PRN if increasingly confused - Oriented to self and place - Increased difficulty initiating swallow. Recommend crushing meds and giving with applesau ce or pudding - Encourage PO! Needs assistance ordering - Ongoing hematuria- MDs aware and believe its due to kidney stone. Barriers to discharge: -New diagosis of DM. Will need diabetic education when he is no long er confused. - AMS - Liver transplant? lan of Care - Martha Weller OT - 07/27/2019 3:25 PM PDT Occupational therapy treatment note: [id number] DOUG LAWSON Date of : 1965 Start of care: 07/17/2019 Date of onset: 07/17/2019 Referring/Attending Practitioner: Des Gamez MD Primary/Referral Diagnosis/ICD-9: K70.31 Alcoholic cirrhosis of liver with ascites (HCC) I47.1 SVT (supraventricular tachycardia) (HCC) Insurance: Payor: [employer] / Plan: [facility] / Product Type: Medicaid / 07/27/2019 3:25 PM Time in: 1525 Time out: 1540 Pt admitted 07/17/2019, hospital day # 10 Seen on 5C Reason for hospitalization: 54 year old man with PMH notable for Spur Cell Anemia c/b trans fusion related iron overload, EtOH cirrhosis here with decompensated liver disease, tachyarr hythmia and HRS Type 2. Overall tele appears somewhat improved after addition of scheduled M etoprolol on top of Amio load ongoing. Appreciate EP evaluation/assistance. Given hypoglycem ia yesterday evening will drop lispro dose. Hepatology concerned that encephalopathy is vance ewhat worse today (although he does wax and wane and mental status at time of our visit not markedly different than yesterday)--Will eval for infectious sources and initiate tube feeds to help augment nutritional status. Having fairly frequent BMs and may need to consider adj ustment of lactulose dosing. Present in Session: Patient Only Relevant Precautions: Fall risk, altered mental status Brief Hospital Course Update: none Subjective: "I can't get up without setting off the alarm" Objective: Pt encountered sitting up in bed, taking medication with nurse. Pt able to roxanna e sips on water on his own but requires verbal cues to attend to therapist and conversation. With prompting, pt is willing to attempt ambulating to toilet. Pt requires prompting to in itiate sitting edge of bed, does so with stand-by assist and extra time. Sit to stand to FWW with contact guard assist, ambulates to bathroom with stand-by assist b ut requires assist to open door and contact guard assist and heavy prompting for strategies to sit on low toilet. Pt requests assist to manage brief as well as hygiene, declines encouragement to attempt on his own. Pt ambulates back to edge of bed with stand-by assist, prompting to lift legs into bed. Pt left seated upright in bed, bed alarm activated, RN aware. [facility] daily activity assessment [facility] DAILY ACTIVITY - How much help from another person does the patient currently need f or: Lower body dressing 2 - Alot Bathing 2 - Alot Toileting 2 - Alot Upper body dressing 3 - Little Personal grooming 3 - Little Eating meals 3 - Little [facility] Daily Activity Total Score 15 1 - Unable to do/total assistance = Total/Dependent Assist 2 - A lot = Maximum/Moderate Assistance 3 - A little = Minimal/Contact Guard Assist/Supervision 4 None = Modified independent/Independent Interpretation of [facility] Short Form Daily Activity: CMS Modifier (G-Code) Score (in points) % of Functional Impairment, Limitation, or Restriction CN 6 100% impaired, limited, restricted CM 7-9 At least 80%, but less than 100% impaired, limited, or restricted CL 10-14 At least 60%, but less than 80% impaired, limited, or restricted CK 15-19 At least 40%, but less than 60% impaired, limited, or restricted CJ 20-22 At least 20%, but less than 40% impaired, limited, or restricted CI 23 At least 1%, but less than 20% impaired, limited, or restricted CH 24 0% impaired, limited, or restricted Pain: No complaints Assessment: Pt primarily limited by cognition related to encephalopathy. Pt requires prom pting to initiate nearly all tasks today with poor safety awareness. Pt will likely not tania efit from additional acute OT at this time, but will require heavy assist and supervision fo r safety while awaiting liver transplant. OT will sign off for now with encouragement for n ursing staff to maintain mobility and engagement in out of bed ADLs. See care plan for goals. ACTIVITY/ENVIRONMENTAL RECOMMENDATIONS: *Nursing to re-assess per shift as needed.* Up with one person assist, encourage time out of bed and engagement in ADLs DISCHARGE RECOMMENDATIONS: 24 hour assist The skills of this therapist are necessary to safely and effectively furnish a recognized t herapy service whose goal is improvement of an impairment or functional limitation. Time in: 1525 Time out: 1540 Patient was seen for a total of 15 minutes of direct one on one skilled OT which included: - Therapeutic Activity: 15 minutes Martha Calix, OT P M PDTPlan of Care - Shannan Green, PT - 07/27/2019 11:22 AM PDTFormatting of this note mi ght be different from the original. Physical Therapy 07/27/2019 11:22 AM Time in: 1045 Time out: 1120 Patient was seen for a total of 35 minutes of direct one on one skilled physical therapy wh ich included 12 minutes of gait training and 23 minutes of therapeutic activity Patient seen on 5C Hospital Day: 10 Present throughout session: patient, therapist, MDs for part of treatment to observe mobili ty and gait Brief Hospital Course: Mr. 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 Work-up thus far has been unremarkable, including a knee aspirate demonstrating find ings most consistent with hemarthrosis.He'sdemonstrated noovert GI bleeding;so end oscopic work-up for this is unmerited in the setting of known spur cell anemia. Transplant infectious disease hasalso weighed in,with no e/o infection/sepsis as etiology of SVT/a fib. In regard to his tachyarrythmia, his cardiac function appears to be compensated and is not a contraindication for transplantper se. Has been titrated off amiodarone GTT and down graded to medicine floors. However he continues to have intermittent tachyarrthymia despite no precipitants. We suspect patient has asusceptibility to electrical conduction abnormali ty due to his underlying myocardial iron overload), which puts patient at high clara-op risk from a cardiac perspective. Patient is now listed as status 7, and would benefit from an EP evaluation for further management.Henrique Chapa MD, 07/23/19. Status Update: EP Consult with management of his tachyarrthymia. Relevant Precautions: High fall risk (hepatic encephalopathy and impaired balance). Subjective: oriented to self and place. Overall confusion and delayed in answering question s. When asked how he feels patient responds "I'm fine" Pain: denies. Objective: Supine to sit- minimal assist and increased time to complete task Sit to stand with front wheeled walker- contact guard assist Gait with front wheeled walker x 150'- minimal assist to avoid obstacles in halls and with occasional loss of balance. Slow ally. Patient stays very close to edge of jodran with furn iture, etc despite frequent ceing to stay in the middle of the jordan. Sit to supine with minimal assist for legs. Scooting up in bed with verbal cueing for technique and assist to block feet. Assessment: Patient continues to benefit from skilled Physical Therapy services due to impa ired balance and mobility. He continues to be a high fall risk. See care plan for goals. Problem: PT Goals- Adult Goal: Functional Mobility Goal Description Patient independent supine to sit to supine with use of bed features via log roll Patient independent sit to stand to sit with use of front wheeled walker from standard ch air Patient independent transfer bed to chair to bed with use of front wheeled walker Patient contact guard assistance gait with front wheeled walker 50 feet, gait speed 0.6m/s Patient performs 2 set(s) of 10 repetitions of shoulder elevation , elbow flexion and exten arjun , wrist flexion and extension , hand open and close , ankle pumps , heelslides , SAQ , hip abduction/addution . Patient without AROM deficits bilateral UEs and LEs in supine or sitting Outcome: Gradual progress toward goal Activity Recommendations for Nursing partners: *Nursing to re-assess per shift as needed.* - Lights on and curtains open during day hours. - Up to chair for meals or 3x/day with front wheeled walker and 1 person assist - walks in jordan with front wheeled walker and 1 person assist DISCHARGE RECOMMENDATIONS: 24 hour assist;Continued PT at next level of care DME Needs: pending progress Shannan Green, PT lan of Care - Elise Shoemaker - 07/27/2019 8:07 AM PDT Problem: Nutrition Interventions Intervention: Food and nutrient distribution type or amount Note: Nutrition: Caloric Intake Analysis for 07/26/20119 70 Grams PROTEIN, 437 Calories. Figures represent foods eaten at 3 small meals. Includes 71 5 ml of Premier Protein. Foods recorded as eaten in EPIC. Calorie count complete. Elise Denise [employer] [facility] [id number] andoff - Maryanne Umana RN - 07/26/2019 11:31 PM PDTNursing Handoff Patient Daily Goal: Will increase PO intake (07/26/19 0835) Patient Specific Preferences: tv/movies on (07/21/19 0800) [facility] IP NURSE HANDOFF: [facility] hospital course events: Per MD: Mr. 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 SAFETY Patient/Family Target: Donell will ambulate safely OOB Progress to Target: No Change As evidenced by: Donell is a high fall risk d/t confusion, deconditioning, poor nutrition, RLE weakness/pain, and unstable VS. Currently a 1-2PA with FWW to BSC. Ambulated out of bed a couple times ove rnight to BSC for incontinent stool/bed linen changes. Fairly steady on feet once standing w ith walker. VMT initiated during day shift 07/26 for attempts to pulling out PIV and attempts to get OOB w/o staff. x1 call from VMT overnight with pt sitting at edge of bed. Bed alarm on. RESTORATIVE MEASURES/SELF-MANAGEMENT Patient/Family Target: Donell will not experience worsening confusion Progress to Target: No Change As evidenced by: Donell continues to be confused. Oriented to self and place (hospital) only. Ongoing letharg y. Minimal engagement in conversation, only saying a few words at a time, slow to respond. x [address] DHT 07/26 day shift due to difficulty initiating swallow/poor PO intake. No attempts to place DHT overnight, did not eat dinner, but was able to take all pills crush ed in apple sauce. Multiple episodes of incontinence with urine/stool. Continue to promote sleep/wake cycle and implement delirium precautions NURSING ASSESSMENT & RECOMMENDATIONS FORWARD Nursing Assessment of Patient Stability Risk: Moderately unstable Recommendations Forward: - Titrate BMs to 3-5. x2 large incontinent BMs overnight - 1-2PA w/FWW to BSC, dependent on pt's level of orientation/arousal level, utilize more as sistance PRN if increasingly confused - Oriented to self and place - Increased difficulty initiating swallow. Recommend crushing meds and giving with applesau ce or pudding - Sister likes to order patient's meals for him when she is here. No longer on house trays. Enjoys chocolate Boosts - R knee/leg painful - Had has hypoglycemia event this hospitalization. Hyperglycemic this shift - On tele. ST to 140 07/26 day shift, 500ml LR bolus given. No calls from tele overnight - Poor PO inake. Attempted DHT tube x2 day shift 07/26 without success. Consider re-attempti ng when patient agreeable in AM - Ongoing hematuria Barriers to discharge: - AMS - Liver transplant? lan of Care - Nisreen Abad RD - 07/26/2019 3:04 PM PDT Problem: Nutrition Interventions Intervention: Enteral Nutrition Note: Consult received for TF recommendations. Noted low Mg level this morning. Phos WNL when l ast checked 07/21. Calorie count in progress. Avg PO intake so far meeting 29% est kcal needs , 65% est protein needs. Rec: - Begin supplemental TFs to meet remaining nutrition needs: Nutren 1.5 (Volume restricted; 1.5 kcal/mL in EPIC), initiate at 20 mL/hr, advance by 10-15 ml q4h to goal continuous rate 35 ml/hr (= 840 ml TF, 1260 kcal, 57 g PRO, 642 ml water, 148 g CHO and no fiber daily) - Monitor electrolytes, replete low levels as needed; initiate/advance TF only if lytes WN L - Monitor abd exam, N/V, abd distention; hold TF if sign of intolerance - Water flushes per MD; recommend minimum 30 mL q4h to maintain feeding tube patency - When tolerating TF at goal rate, transition to nocturnal cyclic feeds to promote oral int iman during day: Nutren 1.5, 70 mL/hr x 12 hrs (to provide same as above). - Continue calorie count; adjust TF as needed. - If TF to meet 100% nutrition needs (if PO declines): Nutren 1.5 (Volume restricted; 1.5 k julia/mL in EPIC), goal rate 60 ml/hr (=1440 ml TF, 2160 kcal, 98 g PRO, 1100 ml water, 253 g CHO and no fiber daily) See full nutrition assessment note 07/23 for additional details / recommendations. RD will continue to follow, Nisreen Abad RD, LD, CNSC Pager # [phone] andoff - Ervin Lake RN - 07/26/2019 1:57 PM PDTNursing Handoff Patient Daily Goal: Will increase PO intake (07/26/19 0835) Patient Specific Preferences: tv/movies on (07/21/19 0800) [facility] IP NURSE HANDOFF: [facility] hospital course events: Per MD: Mr. 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 SAFETY Patient/Family Target: Donell will ambulate safely OOB Progress to Target: No Change As evidenced by: Donell is a high fall risk d/t confusion, deconditioning, poor nutrition, RLE weakness/pain, and unstable VS. Currently a 2PA with FWW to BSC. Ambulated out of bed a couple times this shift. Fairly steady on feet once standing with walker. No attempts to get OOB this shift. E nsure BA remains on when family not in room. Is deconditioned and needs encouragement to get OOB to improve muscle strength and improve PO intake RESTORATIVE MEASURES/SELF-MANAGEMENT Patient/Family Target: Donell will not experience worsening confusion Progress to Target: No Change As evidenced by: Donell continues to be confused. Oriented to self and place ("[place], [place]") only. Ongoi ng lethargy. Minimal engagement in conversation, only saying a few words at a time, slow to respond. Bed alarm continued, although no attempts to get OOB independently. Very confused t his afternoon, ripped PIV out and undressed. VMT initiated. Attempted to place DHT twice tod ay, both times unsuccessful d/t poor patient swallow and confusion. Now unable to swallow pi lls whole, needs them crushed and put in applesauce or pudding this shift. Multiple episodes of urinary incontinence. No BMs today despite scheduled and PRN lactulose. Continue to prom ote sleep/wake cycle and implement delirium precautions NURSING ASSESSMENT & RECOMMENDATIONS FORWARD Nursing Assessment of Patient Stability Risk: Moderately unstable Recommendations Forward: - Titrate BMs to 3-5 - 2PA w/FWW to BSC - Oriented to self and place - Increased difficulty initiating swallow. Recommend crushing meds and giving with applesau ce or pudding - Sister likes to order patient's meals for him when she is here. No longer on house trays. Enjoys chocolate Boosts - R knee/leg painful - Had has hypoglycemia even this hospitalization. Hyperglycemic this shift - On tele. ST to 140 this morning. MDs notified. 500ml bolus given with return to NSR - Poor PO inake. Attempted DHT tube x2 this shift without success. Consider re-attempting w hen patient aggreable - Ongoing hematuria Barriers to discharge: - AMS - Liver transplant? lan of Care - Samuel Lim - 07/26/2019 8:01 AM PDT Problem: Nutrition Interventions Intervention: Food and nutrient distribution type or amount Note: Nutrition: Caloric Intake Analysis for 07/25/2019 36 Grams PROTEIN, 533 Calories. Figures represent foods eaten at 3 meals, and 2 snacks. Inc ludes 113 ml of Premier Protein. Foods recorded as eaten in EPIC. Will continue to follow. Meagan Lim DTR [id number] andoff - Maryanne Umana RN - 07/25/2019 11:11 PM PDTNursing Handoff Patient Daily Goal: Get some sleep (07/22/19 1400) Patient Specific Preferences: tv/movies on (07/21/19 0800) [facility] IP NURSE HANDOFF: [facility] hospital course events: PMH: alcoholic cirrhosis and alcoholic h epatitis complicated by ascites, leg edema, spur cell adenoma, and secondary iron overload l isted for liver transplant with MELD 34 who was transferred from [facility] with AMS and new onset hyperglycemia, trauma to R knee after a fall, and renal insufficiency. He was transferred to the MICU for unstable atrial fibrillation with RVR into 180s and blood p ressures 80s/50s. Amio loaded, IV transitioned to PO Reactivated on transplant list RESTORATIVE MEASURES/SELF-MANAGEMENT Patient/Family Target: RN advocacy: maintain delirium precautions to promote sleep/wake cycle Progress to Target: Improving As evidenced by: Per day RN report Donell has become increasingly confused. Overnight Donell was quite lethargic and only oriented to self and occasionally place. Minimal engagement in conversation, only saying a few words at a time, slow to respond. Bed alarm initiated due to confusion and atte mpts to get out of bed without assistance with increasing weakness with activity. Some diffi culty swallowing larger pills during bedtime med pass. x2 episodes of incontinence of stool/ urine, otherwise appeared to be able to rest for majority of the night (roughly from 0100-07 00. NURSING ASSESSMENT & RECOMMENDATIONS FORWARD Nursing Assessment of Patient Stability Risk: Moderately unstable Recommendations Forward: SBA with walker. Requires BA when family not at bedside Monitor Right Knee for swelling or bleeding Monitor CBGs for hypogylcemia Monitor tele and VS Titrate BMs 3-5 a day. 2 BMs overnight Encourage ambulation and independent ADLs On liver transplant list Having hematuria, UA taken 07/25 Barriers to discharge: On hold for liver transplant until cardiac stabilization. Placement? andoff - Donovan Navarro RN - 07/25/2019 3:25 PM PDTNursing Handoff Patient Daily Goal: Get some sleep (07/22/19 1400) Patient Specific Preferences: tv/movies on (07/21/19 0800) [facility] IP NURSE HANDOFF: [facility] hospital course events: PMH: alcoholic cirrhosis and alcoholic h epatitis complicated by ascites, leg edema, spur cell adenoma, and secondary iron overload l isted for liver transplant with MELD 34 who was transferred from [facility] with AMS and new onset hyperglycemia, trauma to R knee after a fall, and renal insufficiency. He was transferred to the MICU for unstable atrial fibrillation with RVR into 180s and blood p ressures 80s/50s. Amio loaded, IV transitioned to PO Reactivated on transplant list SAFETY Patient/Family Target: Donell will remain hemodynamically stable, with heart rate less than 120. Progress to Target: Improving As evidenced by: Donell jessica 57-60 for this shift, on PO metoprolol as HR hovering in the mid 50's. Continue to monitor. On Tele Progress to Target: No Change As evidenced by: Pain:denies Nausea: denies Bowel function: 3 loose stools today Sleep: Has not slept well for 2 days provided headphones Psych: Some confusion today, requires BA when family not in rm. Other: calorie count may need DHT to be determined by team HYGIENE/INFECTION Patient/Family Target: No s/s infection Progress to Target: No Change As evidenced by: Skin: jaunice S/s of infection: increases bruising around right knee. Concern for increase swelling monit or closely Bathing issues: had a shower yesterday with family 07/24 Access: Right AC PIV removed due to increased bleeding. RFA PIV and LFA PIV CDI Monitor CBG's closely was hypoglycemic last night cbg 73 RESTORATIVE MEASURES/SELF-MANAGEMENT Patient/Family Target: Pt will Walk in jordan at least 1X per shift Progress to Target: No Change As evidenced by: PO intake: calorie count Mental status: Some confusion this am could be related to lack of sleep and trigger by mary recio who also has delirium Activity level: SBA with walker. Requires BA when family not at bedside Other: Needs to work PT/OT HEALTH PROMOTION Patient/Family Target: Donell will maintain BM goal of 3-5 BM per day. Progress to Target: No Change As evidenced by: Donell had 3 BMs today *update: finally had an extra-large BM right before the end of shift around 0700 Recommend using PRN lactulose between scheduled doses until he has at least one BM. NURSING ASSESSMENT & RECOMMENDATIONS FORWARD Nursing Assessment of Patient Stability Risk: Moderately unstable Recommendations Forward: Needs UA to be collected some blood in urine today 07/25 Monitor Right Knee for swelling or bleeding Monitor CBGs for hypogylcemia Monitor tele and VS Titrate BMs 3-5 a day. Encourage ambulation and independent ADLs On liver transplant list Barriers to discharge: On hold for liver transplant until cardiac stabilization. Placement? lan of Ramila - Jr Lim - 07/25/2019 9:27 AM PDT Problem: Nutrition Interventions Intervention: Food and nutrient distribution type or amount Note: Nutrition: Caloric Intake Analysis for 07/24/2019 71 Grams PROTEIN, 630 Calories. Figures represent foods eaten at 3 meals, and 3 snacks. Inc ludes 606 ml of Premier Protein. Foods recorded as eaten in EPIC. Will continue to follow. Meagan Lim DTR [id number] andoff - Polly Fitzgerald RN - 07/25/2019 4:45 AM PDTNursing Handoff [place] IP NURSE HANDOFF: Tamez hospital course events: PMH: alcoholic cirrhosis and alcoholic h epatitis complicated by ascites, leg edema, spur cell adenoma, and secondary iron overload alek isted for liver transplant with MELD 34 who was transferred from [facility] with AMS and new onset hyperglycemia, trauma to R knee after a fall, and renal insufficiency. He was transferred to the MICU for unstable atrial fibrillation with RVR into 180s and blood p ressures 80s/50s. Amio loaded, IV transitioned to PO Reactivated on transplant list SAFETY Patient/Family Target: Donell will remain hemodynamically stable, with heart rate less than 120. Progress to Target: Improving As evidenced by: Donell was in NSR for this shift, on PO metoprolol as HR hovering in the mid 50's. Continue to monitor. HEALTH PROMOTION Patient/Family Target: Donell will maintain BM goal of 3-5 BM per day. Progress to Target: No Change As evidenced by: Donell had only 2 BMs today, 1 scant, 1 small, despite 100g of lactulose (150ml) *update: finally had an extra-large BM right before the end of shift. Recommend using PRN lactulose between scheduled doses until he has at least one BM. NURSING ASSESSMENT & RECOMMENDATIONS FORWARD Nursing Assessment of Patient Stability Risk: Moderately unstable Recommendations Forward: Monitor tele and VS Titrate BMs 3-5 a day. Encourage ambulation and independent ADLs On liver transplant list Barriers to discharge: On hold for liver transplant until cardiac stabilization. Placement? lan of Care - Laz Stoo res, OT - 07/24/2019 2:20 PM PDTFormatting of this note might be different from the o riginal. Occupational Therapy Evaluation [id number] DOUG LAWSON Date of : 1965 Start of care: 07/17/2019 Date of onset: 07/17/2019 Referring/Attending Practitioner: Des Gamez MD Primary/Referral Diagnosis/ICD-9: K70.31 Alcoholic cirrhosis of liver with ascites (HCC) I47.1 SVT (supraventricular tachycardia) (HCC) Insurance: Payor: [employer] / Plan: [facility] / Product Type: Medicaid / Service Period: 07/24/2019 to 08/23/2019 08/23/2019 2:20 PM Time in: 1332 Time out: 1405 Pt admitted on 07/17/2019, hospital day # 7. Seen on 9k. Brief Hospital Course: Mr. Lawson is a 54 yo man with spur cell anemia requiring chronic tr ansfusions c/b iron overload, EtOH cirrhosis c/b ascites with MELD 36 (07/20), Blood type A+, listed for liver transplant,transferred for AMS and falls found to have hyperglycemia and renal insufficiency, hospital course complicated by SVT requiring ICU transfer and amiodaro ne drip. Work-up thus far has been unremarkable, including a knee aspirate demonstrating fin dings most consistent with hemarthrosis.He'sdemonstrated noovert GI bleeding;so en doscopic work-up for this is unmerited in the setting of known spur cell anemia. Transplan t infectious disease hasalso weighed in,with no e/o infection/sepsis as etiology of SVT/ afib. In regard to his tachyarrythmia, his cardiac function appears to be compensated and is not a contraindication for transplantper se. Has been titrated off amiodarone GTT and dakotah ngraded to medicine floors. However he continues to have intermittent tachyarrthymia despite no precipitants. We suspect patient has asusceptibility to electrical conduction abnormal ity due to his underlying myocardial iron overload), which puts patient at high clara-op risk from a cardiac perspective. Patient is now listed as status 7, and would benefit from an EP evaluation for further management.(As per MD note 07/23/19) Relevant Precautions: Fall risk Indication for Occupational Therapy Consult: Skilled OT services provided to evaluate curre nt level of function and treat for barriers to participation and performance in ADLs/IADLs t hrough remediation, adaptive strategies, education of patient and caregivers, and to provide education and attain patient goals and proper discharge planning. Past Medical History: Diagnosis Date Cirrhosis (HCC) CKD (chronic kidney disease) Past Surgical History Procedure Laterality Date Leg surgery Present in Session: Occupational Therapist, Patient, Sister, Mother Living Environment: Patient reports in between living currently. As per family report, ezequiel ns to discharge to aunts house in [place]. House is 1 floor, 1 step to enter. Walk in show er. No DMEs reported. Prior Level of Function: Independent for all ADLs/IADLs. Active. Drives. Patient / Family Goal: Get better Barriers: Fluctuating mental status Pain: None reported during session Vital signs: Stable. Cognitive Screen Level of alertness: Drowsy Orientation: AAOx Quality of responses: Poor Command following: Fair. Able to follow simple 1 step commands 75% of the time Memory: Poor Judgement / safety awareness: Poor. Required constant verbal and tactile cueing Attention / Concentration: Poor. Required redirection Barriers to Learning: Cognitive decline Affect: Normal CAM: Negative UE Physical Assessment Dominant Hand: Right ROM: WFL for BUE, baseline shoulder fracture on Right upper extremity. Strength: WFL for BUE Edema: None observed Skin Integrity: Intact UE Neurological Function Sensation: Intact Muscle Tone: Intact Proprioception: Intact Gross Motor: Intact Fine Motor: Intact Activities of Daily Living: UB Dressing: Not tested UB Grooming: Not tested LB Dressing: Unable to complete to don/doff socks Toileting: Max assist for perineal care while standing Ambulation with ADL: Contact guard assist with rolling walker Transfers: Supine to sitting Min A, Sit to stand Min A, Toilet transfer Mod A, Sitting to supine Max A [facility] daily activity assessment [facility] DAILY ACTIVITY - How much help from another person does the patient currently need f or: Lower body dressing 2 - Alot Bathing 2 - Alot Toileting 2 - Alot Upper body dressing 3 - Little Personal grooming 3 - Little Eating meals 3 - Little [facility] Daily Activity Total Score 15 1 - Unable to do/total assistance = Total/Dependent Assist 2 - A lot = Maximum/Moderate Assistance 3 - A little = Minimal/Contact Guard Assist/Supervision 4 None = Modified independent/Independent Interpretation of [facility] Short Form Daily Activity: CMS Modifier (G-Code) Score (in points) % of Functional Impairment, Limitation, or Restriction CN 6 100% impaired, limited, restricted CM 7-9 At least 80%, but less than 100% impaired, limited, or restricted CL 10-14 At least 60%, but less than 80% impaired, limited, or restricted CK 15-19 At least 40%, but less than 60% impaired, limited, or restricted CJ 20-22 At least 20%, but less than 40% impaired, limited, or restricted CI 23 At least 1%, but less than 20% impaired, limited, or restricted CH 24 0% impaired, limited, or restricted Treatment provided this date: Patient found supine in bed. Family in room. Supine to sit, required assist for BLE to clear off bed. Able to push trunk in unsupported long sit with BU E. Sit to stand from elevated bed to rolling walker. Cued for hand placement and device argenis gement. Functional ambulation within room to sink. Toilet transfer Mod A with cues for grab bar use on right side. Stabilization provided at trunk to lower onto toilet. Perineal care w hile standing with tactile assist for wiping while use of grab bar on right side. Patient ab le to inititate push into standing, provided support at trunk to stabilize to pull up underw ear above waist. Placed back seated. Assist to clear BLE onto bed. Cued for trunk control an d sequencing of transfer. Discussed role of OT, importance of resuming daily routines and fr equent mobilization, and discharge planning. Task/environmental modification for current carla e set up identified for safe return to home. Ended session: Supine in bed. Positioned for comfort. Family in room. Call light in reach, nurse notified ASSESSMENT: Patient presented with decreased functional mobility and deconditioning from h ospital course with lapses in mental status during session requiring frequent cueing and red irection during ADL activities. Patient receptive to commands but presents with poor problem solving and requires further reinforcement for safety and judgement. Further skilled OT ser vices are indicated at this time to increase participation in ADLs and daily routines. See care plan for goals. Patient will complete UB grooming while standing with independence Patient will complete perineal care independently Patient will be AAOx4 during session Patient will demonstrate correct sequence for out of bed mobility transfers Patient will complete LB dressing for socks with [place] ACTIVITY/ENVIRONMENTAL RECOMMENDATIONS: *Nursing to re-assess per shift as needed.*-Resume daily routines -Encourage independence in ADLs -Out of bed activities at least 3x a day for meals -Lights on, curtains open during the day Memory & New Learning: Highly structured environment - Minimal distraction - Provide external orientation aids: utilize white board and cue correct date, place, sit uation, simple goals for the day - For safe mobility: Raise awareness of possible fall hazards, demonstrate safety strateg ies - Provide assist to identify when problem is occurring, help generate possible solutions - Focus on one activity or one person at a time - Help patient to prioritize activities - Provide immediate and objective feedback during the activity - Anticipate need for frequent repetition for understanding - Guide prioritization of top 2 goals for patient to focus on - Acknowledge frustration as needed and address concerns in a timely manner Evaluation Complexity (HIGH): -Occupational profile and medical/therapy history is extensive. -Assessment identifies 5 or more performance deficits relating to physical, cognitive or ps ychosocial skills that result in activity limitation and/or participation restrictions. -Clinical decision making is of high analytic complexity and consideration of multiple yumi tment options. Patient presents with comorbidities that affect occupational performance. Sig nificant modification of tasks or assistance is required to complete evaluation component. DISCHARGE RECOMMENDATIONS: 24 hour assist PLAN: Frequency: 4x/week Duration: 2 weeks The above plan of care and goals were developed and reviewed with the patient. The skills o f this therapist are necessary to safely and effectively furnish a recognized therapy servic e whose goal is improvement of an impairment or functional limitation. Time in: 1332 Time out: 1405 Patient was seen for an OT evaluation and a total of 24 minutes of direct one on one skille d OT treatment which included: - ADL Trainin minutes Laz Martinez OT lan of Care - Shannon Keller, PT - 07/24/2019 1:51 PM PDT . Physical Therapy 07/24/2019 1:51 PM Time in: 1030 Time out: 1110 Patient was seen for a total of 40 minutes of direct one on one skilled physical therapy wh ich included 25 minutes of therapeutic activity and 15 minutes of gait training. Hospital Day: 7 Others present during session other than Physical Therapist and patient: none. Brief Hospital Course: Mr. 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 Work-up thus far has been unremarkable, including a knee aspirate demonstrating find ings most consistent with hemarthrosis. He's demonstrated noovert GI bleeding; so endosc opic work-up for this is unmerited in the setting of known spur cell anemia. Transplant in fectious disease hasalso weighed in, with no e/o infection/sepsis as etiology of SVT/afib. In regard to his tachyarrythmia, his cardiac function appears to be compensated and is not a contraindication for transplant per se. Has been titrated off amiodarone GTT and downgrade d to medicine floors. However he continues to have intermittent tachyarrthymia despite no pr ecipitants. We suspect patient has asusceptibility to electrical conduction abnormality du e to his underlying myocardial iron overload), which puts patient at high clara-op risk from a cardiac perspective. Patient is now listed as status 7, and would benefit from an EP evalu ation for further management. Henrique Chapa MD, 07/23/19. Status Update: EP Consult with management of his tachyarrthymia. Relevant Precautions: High fall risk (hepatic encephalopathy and impaired balance). Subjective: "I'm doing fine, I guess." Pain: patient endorses persistent pain in R knee without worsening. Objective: patient is awake, oriented to self and hospital, not to date or events, able to follow 1 step commands most of the time with some delayed. -jaundice. -distended abdomen. -extensive hematoma around R knee with diffuse swelling. -anti-gravity movement in BUE/LLE, limited anti-gravity movement in RLE d/t R knee pain. -good static sitting balance, fair dynamic sitting. -poor static standing balance, requiring fww and contact guard assist for balance. -contact guard assist with RLE d/t R knee pain for bed mobility, HOB up, requires extra angela e, heavy cues provided for sequencing. -contact guard assist transfer with fww, requires extra time d/t R knee pain, heavy cues pr ovided for sequencing/safety. -contact guard assist with toilet transfer using safety grab bar. -contact guard assist ambulation with fww ~ 150' with slower pace, wider MAO with decreased bilateral foot clearance without tripping and intermittent mild pathway deviation without l oss of balance, heavy cues provided for upright posture and gait/walker sequencing, patient denies SOB/dizziness. -patient resting comfortably in bed after PT session with call light within reach, bed alar m in place. [facility] BASIC MOBILITY Difficulty turning over in bed 3 - A Little - Minimal/Contact Guard Assist/Supervision Difficulty sitting/standing from chair w/ arms 3 - A Little - Minimal/Contact Guard Assist/ Supervision Difficulty moving from supine to sitting on edge of bed 3 - A Little - Minimal/contact Guar d Assist/Supervision Help needed moving from /to chair/wheelchair 3 - A Little - Minimal/Contact Guard Assist/S upervision Help needed walking in hospital room 3 - A Little - Minimal/Contact Guard assist/Supervisio n Help needed climbing 3-5 steps w/railing 3 - A Little - Minimal/Contact Guard Assist/Superv ision [facility] Basic Mobility Total Score 18 Interpretation of [facility] Short Form - Basic Mobility: CMS Modifier (G-Code) Score (in points) % of Functional Impairment, Limitation, or Restrict ion CN 6 100% impaired, limited, restricted CM 7-9 At least 80%, but less than 100% impaired, limited, or restricted CL 10-14 At least 60%, but less than 80% impaired, limited, or restricted CK 15-19 At least 40%, but less than 60% impaired, limited, or restricted CJ 20-22 At least 20%, but less than 40% impaired, limited, or restricted CI 23 At least 1%, but less than 20% impaired, limited, or restricted CH 24 0% impaired, limited, or restricted Predicts discharge post hospitalization ([facility] raw score: 6-24) Home = 20.1 Home with home care = 17.9 long term facility = 13.6 Inpatient rehabilitation facility = 13.6 cd technician care = 11.5 Ben Aguilar S. The use of functional outcome measure in acute care to guide discharg e recommendations. J Acute Lean Process Deployment Consultant. 2012;3(3):248. Assessment: Patient is currently listed status 7 for liver transplant, transferred out of [facility], presents with hepatic encephalopathy with fluctuating MS but able to follow basic comman ds for mobilization and able to tolerate increasing oob activity and ambulation in hallway w ith front wheeled walker/CGA. Encouraged daily walks with nursing staff for general conditio sanjeev. PT continues to follow for progressive functional mobility and endurance training. See care plan for goals. Activity Recommendation for Nursing: *Nursing to re-assess per shift as needed.* - Routine ambulation 3x/day with front wheeled walker/SBA. DISCHARGE/DME RECOMMENDATION: 24 hour assist;Continued PT at next level of care Una Keller, PT, DPT, CCS Should this patient discharge from the hospital prior to the next physical therapy treatmen t, this note shall serve as the discharge summary. andoff - Nancy Fitzgerald RN - 07/24/2019 10:50 AM PDTNursing Handoff [facility] IP NURSE HANDOFF: Tamez hospital course events: PMH: alcoholic cirrhosis and alcoholic h epatitis complicated by ascites, leg edema, spur cell adenoma, and secondary iron overload l isted for liver transplant with MELD 34 who was transferred from [facility] with AMS and new onset hyperglycemia, trauma to R knee after a fall, and renal insufficiency. He was transferred to the MICU for unstable atrial fibrillation with RVR into 180s and blood p ressures 80s/50s. Amio loaded, IV transitioned to PO Reactivated on transplant list SAFETY Patient/Family Target: Donell will remain hemodynamically stable, with heart rate less than 120. Progress to Target: Improving As evidenced by: Donell was in NSR for this shift, on PO metoprolol as HR hovering in 60's. Continue to monit or. RESTORATIVE MEASURES/SELF-MANAGEMENT Patient/Family Target: Donell will be safe on his feet. Progress to Target: Improving As evidenced by: OOB x 3 with walker (to bathroom), 1 person assist to help stand and ensure he is steady before walking. Denies dizziness or lightheadedness. Donell is usually good about using call li ght before trying to get out of bed, but still utilizing bed alarm for safety. HEALTH PROMOTION Patient/Family Target: Donell will maintain BM goal of 3-5 BM per day. Progress to Target: Improving As evidenced by: Donell met his BM goal yesterday with 5 BMs. AM dose of lactulose given, no BM yet. NURSING ASSESSMENT & RECOMMENDATIONS FORWARD Nursing Assessment of Patient Stability Risk: Moderately stable Recommendations Forward: Monitor tele and VS Titrate BMs 3-5 a day. None so far today. Encourage ambulation and independent ADLs - PT/OT to evaluate On liver transplant list Barriers to discharge: On hold for liver transplant until cardiac stabilization. Placement? lan of Care - Geno Harmon RN - 07/23/2019 7:43 PM PDTI have reviewed and agree with the documentation that Ami Gold, student RN, has entered into the medical record. I verify that I worked w ith the student to assess and formulate a plan of care. andoff - Hans Gold son - 07/23/2019 7:17 PM PDTNursing Handoff Patient Daily Goal: Get some sleep (07/22/19 1400) Patient Specific Preferences: tv/movies on (07/21/19 0800) [place] IP NURSE HANDOFF: Tamez hospital course events: PMH: alcoholic cirrhosis and alcoholic h epatitis complicated by ascites, leg edema, spur cell adenoma, and secondary iron overload l isted for liver transplant with MELD 34 who was transferred from [facility] with AMS and new onset hyperglycemia, trauma to R knee after a fall, and renal insufficiency. He was transferred to the MICU for unstable atrial fibrillation with RVR into 180s and blood p ressures 80s/50s. Amio loaded, IV transitioned to PO Reactivated on transplant list SAFETY Patient/Family Target: Donell will remain hemodynamically stable, with heart rate less than 120. Progress to Target: No Change As evidenced by: Donell was in NSR at the onset of shift, but midmorning HR elevated to 130s-140s. Upon being notified by Tele of the change in rate/rhythm. Team at bedside, ordered an ECG (A-Tach, R Bundle Branch Block). MARKETING CAMPAIGN ANALYST RN came to deliver IV metoprolol 5mg x3, but Donell sustained this ra te for three hours. Eventually converted back to NSR. Team considered giving digoxin, but se ttled on PO metoprolol as HR hovering in 60's. Returned to A-Tach rhythm in 130's for about 15min this evening. Converted to NSR on his own. Team notified. Continue to monitor. RESTORATIVE MEASURES/SELF-MANAGEMENT Patient/Family Target: Donell will be safe on his feet. As evidenced by: OOB x 2 with walker (to bathroom), 1 person assist to help stand and ensure he is steady before walking. Denies dizziness or lightheadedness. Donell is usually good about using call li ght before trying to get out of bed, but still utilizing bed alarm for safety. HEALTH PROMOTION Patient/Family Target: Donell will maintain BM goal of 3-5 BM per day. Progress to Target: Deteriorating As evidenced by: Donell did not have a BM until mid afternoon, after the second scheduled dose of lactulose a nd one dose of PRN lactulose. Prior to this he was becoming increasingly lethargic and confu sed. His level of consciousness has improved over the afternoon, after 2 BM. NURSING ASSESSMENT & RECOMMENDATIONS FORWARD Nursing Assessment of Patient Stability Risk: Moderately stable Recommendations Forward: Monitor tele and VS Titrate BMs 3-5 a day. 2 BM so far today. Encourage ambulation and independent ADLs - PT/OT to evaluate On liver transplant list Barriers to discharge: On hold for liver transplant until cardiac stabilization. Placement? lan of Care - Rebecca Thornton, RD - 07/23/2019 2:23 PM PDTFormatting of this note might be different from the origin al. Problem: Nutrition Interventions Intervention: Food and nutrient distribution type or amount Met with patient at bedside, he states he is eating well and likes the Premier Protein ladan es. Will continue to monitor weight trends and adequacy of intake throughout admit. Nutrition Recommendations: - Continue current diet, encourage intake - Can offer oral supplements prn if po intake poor - Monitor lytes, replete prn - To supplement low vitamins and minerals: - Daily MVI without iron - Zinc: 110 mg zinc sulfate (25 mg elemental zinc)/day x 2-3 months - Vitamin A: 2 tabs of 10,000 unit vitamin A 3x/week x 3 months - Vitamin D: 50,000 units ergocalciferol q 7 days x 8 weeks then 2000 units cholecalciferol /day for maintenance Nutrition Diagnosis: Pt meets the following criteria suggesting: Severe protein-calorie malnutrition Energy intake: <75% energy intake compared to energy requirement for > 1 mo Depletion of fat stores: moderate (orbital) Depletion of muscle mass: severe (catholic, shoulder, scapula, clavicle) Fluid accumulation: severe (ascites and significant edema in BLE at least to knee) Goal of nutrition care: PO intake to meet at least 75% kcal and protein needs, preserve jeny n body mass, and maintain weight Following, Anh Thornton MS, RD, LD, [facility] Clinical Dietitian Pager # [phone] Nutrition Assessment: Admitting Dx: Doug Lawson is a 54 y.o. 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 after presenting there with AMS, R k nee trauma due to a fall, hyperglycemia, renal insufficiency Food allergies/intolerances: none noted Diet order: Regular, variable intake 10-100% from trays Pertinent Labs: reviewed, Na: 135, T.bili: 13.9 Pertinent Meds: lispro, NPH 20 units TID, lactulose, GI: BM: 07/22 Skin: jaundice Anthropometrics: Ht: 180.3 cm, 71" Weight: 81.6 kg (180 lb) (07/17/19 2243) Admit BMI: Body mass index is 25.1 kg/m. (normal weight) Weight change: Wt Readings from Last 10 Encounters: 07/17/19 81.6 kg (180 lb) 07/06/19 88.1 kg (194 lb 3.2 oz) 05/20/19 88.2 kg (194 lb 6.4 oz) 05/20/19 88 kg (194 lb) 05/18/19 88.9 kg (196 lb) 04/24/19 86.2 kg (190 lb 0.6 oz) 04/21/19 83.9 kg (185 lb) 04/21/19 84.4 kg (186 lb) 03/19/19 81.6 kg (180 lb) 03/18/19 83.5 kg (184 lb) Estimated needs: 9025-9564 kcal (25-30 kcal/kg) and 82-123 gm protein (1-1.5 gm/kg) ignificant Event - Sonia Bee RN - 07/23/2019 10:22 AM PDTSummary: Unit: [address] [place] [address] (07/23/19926) Room #: 7-2 (07/23/19926) Time Called: 926 (07/23/19926) Time Ended: 102 (07/23/19926) Recommendations / Interventions: Primary Reason for Call: Med Administration (07/23/19926) Other Reason for Call: Med Administration;HR High (07/23/19926) Interventions: 12 Lead EKG;EKG Monitoring;NIBP Monitoring;SpO2 Monitoring;Medication Admini stration (07/23/19926) MARKETING CAMPAIGN ANALYST Medications: Metoprolol IV (07/23/19926) Situation: Situation: called to adminster first dose metoprolol for pt in ST rate 135 (07/23/19926) Upon arrival pt has EKG showing atrial tach rate 140s, metoprolol 5mg given x3, after 3rd d ose pt convert to NSR rate 60s with stable BP, electrolytes replacement ordered. Will f/u Background: Background: see H&P (07/23/19926) Outcome/Personnel: Outcome: Stayed in room (07/23/19926) Physician Notified: Yes (07/23/19926) Caller: RN (07/23/19926) lan of Care - Cecille Bloom RD - 07/22/2019 5:50 PM PDT Problem: Nutrition Interventions Intervention: Food and nutrient distribution type or amount Note: Noted pt enjoyed the chocolate Premiere Protein and this is a low carb, high protein option so meets his needs. Added order for one with breakfast and lunch. Also added comment to his diet that he may order more as desired. Following, see RD note 07/21 for detailed assessment Cecille Keller RD Pgr #[id number] andoff - Kenneth Zuñiga RN - 07/22/2019 3:52 PM PDTNursing Handoff Patient Daily Goal: Transfer out of ICU. (07/22/19799) Patient Specific Preferences: tv/movies on (07/21/19799) [facility] IP NURSE HANDOFF: Tamez hospital course events: PMH: alcoholic cirrhosis and alcoholic h epatitis complicated by ascites, leg edema, spur cell adenoma, and secondary iron overload l isted for liver transplant with MELD 34 who was transferred from [facility] with AMS and new onset hyperglycemia, trauma to R knee after a fall, and renal insufficiency. He was transferred to the MICU for unstable atrial fibrillation with RVR into 180s and blood p ressures 80s/50s. Amio loaded, IV transitioned to PO Reactivated on transplant list SAFETY Patient/Family Target: Donell will be safe on his feet. Progress to Target: Improving As evidenced by: OOB x 2 with walker, steady on feet. No complaints of dizziness or lightheadedness. Ambul ated from stretcher to bed upon transfer to unit. NURSING ASSESSMENT & RECOMMENDATIONS FORWARD Nursing Assessment of Patient Stability Risk: Moderately stable Recommendations Forward: Monitor tele Titrate BMs 3-5 a day Encourage ambulation and independent ADLs Barriers to discharge: Hepatology will decide in the next few days if Donell needs to stay inp atient through transplant. andoff - Angie Sanches RN - 07/22/2019 1:49 PM PDTNursing Handoff Patient Daily Goal: Transfer out of ICU. (07/22/19799) Patient Specific Preferences: tv/movies on (07/21/19 08) [facility] IP NURSE HANDOFF: Tamez hospital course events: PMH: alcoholic cirrhosis and alcoholic h epatitis complicated by ascites, leg edema, spur cell adenoma, and secondary iron overload l isted for liver transplant with MELD 34 who was transferred from [facility] with AMS and new onset hyperglycemia, trauma to R knee after a fall, and renal insufficiency. He was transferred to the MICU for unstable atrial fibrillation with RVR into 180s and blood p ressures 80s/50s. Amio loaded, IV transitioned to PO Reactivated on transplant list SAFETY Patient/Family Target: Donell will be safe on his feet. Progress to Target: Improving As evidenced by: OOB x 2 with walker, steady on feet. No complaints of dizziness or lightheadedness. NURSING ASSESSMENT & RECOMMENDATIONS FORWARD Nursing Assessment of Patient Stability Risk: Moderately stable Recommendations Forward: MOnitor telemetry and transfer to floor when able! andoff - Juani Dumas RN - 07/22/2019 6:18 AM PDTNursing Handoff Patient Daily Goal: 3-5 bms, eat (07/21/19799) Patient Specific Preferences: tv/movies on (07/21/19799) [facility] IP NURSE HANDOFF: Tamez hospital course events: PMH: alcoholic cirrhosis and alcoholic h epatitis complicated by ascites, leg edema, spur cell adenoma, and secondary iron overload l isted for liver transplant with MELD 34 who was transferred from [facility] with AMS and new onset hyperglycemia, trauma to R knee after a fall, and renal insufficiency. He was transferred to the MICU for unstable atrial fibrillation with RVR into 180s and blood p ressures 80s/50s. SAFETY Patient/Family Target: Donell will be safe on his feet. Progress to Target: Improving As evidenced by: OOB x 2 with walker, steady on feet. No complaints of dizziness or lightheadedness. NURSING ASSESSMENT & RECOMMENDATIONS FORWARD Nursing Assessment of Patient Stability Risk: Moderately stable Recommendations Forward: MOnitor telemetry and transfer to floor when able! lan of Care - Cecille Keller RD - 07/21/2019 4:55 PM PDT Problem: Nutrition Interventions Intervention: Food and nutrient distribution type or amount Note: RD met briefly with pt. He was sitting up in a chair waiting for late lunch and appeared ti red. He confirmed that he drinks Protein Plus at home (30g protein per bottle), per outpatie nt RD note from 04/2019. He also continues to live alone and has low energy level making it d ifficult to prepare meals so he tends to eat more packaged, processed foods high in sodium. Pt denied taking any vitamins at home. Noted retinol, vit D, and zinc all low 04/2019). His i ntake has been fair to poor here (25-50% x 2 meals yesterday, 75% of breakfast today). Pt sa id he was agreeable with a sampling of chocolate oral supplements. He prefers them very cold . RD requested chocolate Premiere Protein (30g pro/bottle), Boost pudding, and Ensure Compac t to unit frig and will follow up with pt tomorrow for preference. Completed limited physica l exam as pt reported pain in his shoulder and flinched when RD examined his face even with light touch. To supplement low vitamins and minerals, rec: -Daily MVI without iron -Zinc: 110 mg zinc sulfate (25 mg elemental zinc)/day x 2-3 months -Vitamin A: 2 tabs of 10,000 unit vitamin A 3x/week x 3 months -Vitamin D: 50,000 units ergocalciferol q 7 days x 8 weeks then 2000 units cholecalciferol/ day for maintenance Pt meets the following criteria suggesting: Severe protein-calorie malnutrition Energy intake: <75% energy intake compared to energy requirement for > 1 mo Depletion of fat stores: moderate (orbital) Depletion of muscle mass: severe (catholic, shoulder, scapula, clavicle) Fluid accumulation: severe (ascites and significant edema in BLE at least to knee) Following, see RD note 07/20 for detailed assessment Cecille Keller RD Pgr #[id number] lan of [facility] CandisNicole - 07/21/2019 10:06 AM PDTFormatting of this note might be different from the orig inal. Physical Therapy Evaluation and Treatment [id number] DOUG LAWSON 07/21/2019 10:06 AM Admitted on 07/17/2019 6:13 PM, hospital day # 4 Time in: 0920 Time out: 1000 Patient was seen for a total of 40 minutes of direct one on one skilled physical therapy wh ich included 23 minutes of therapeutic activity. Date of : 1965 Start of care: 07/21/2019 Attending Practitioner: Antione Talbot MD Primary/Referral Diagnosis/ICD-9: K70.31 Alcoholic cirrhosis of liver with ascites (HCC) I47.1 SVT (supraventricular tachycardia) (HCC) Insurance: Payor: [facility] [place] / Plan: [facility] / Product Type: Medicaid / Service period from: 07/21/2019 to 10/19/2019 Referral Source: Ordering Provider Electronically Authorized/Signed By Name MD Chriss Mendez MD [phone] Patient seen on 7a MICU Others Present for PT session besides patient and therapist: nurse during commode to bed [facility] Course: Doug Lawson is a 54 year old admitted on 07/17/2019. 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 Waiting for li charlie transplant. Indication for physical therapy evaluation: Assessment of functional mobility and movement dysfunction Relevant Precautions: Delerium, right knee pain and edema, fall risk Prior or Concurrent services related to the provision of physical therapy services: none Past Medical History: Diagnosis Date Cirrhosis (HCC) CKD (chronic kidney disease) Past Surgical History Procedure Laterality Date Leg surgery Past Medical History: Diagnosis Date Cirrhosis (HCC) CKD (chronic kidney disease) Past Surgical History: Procedure Laterality Date LEG SURGERY Living Environment: not addressed Prior Level of Function: independent per patient Patient / Family Goal: use commode Communication/Barriers: citizen of [place] Subjective/Patient knowledge of problem: fair Pain: Right knee pain, does not rate, wincing with ROM. Vital Signs: stable, see electronic medical record Cognitive Screen Level of alertness: intact Orientation: person, situation Quality of responses: appropriate for situation Command followin% single step Judgment / safety awareness: fair Physical Assessment ROM: intact UEs and left LE, limited right knee and hip AROM to 40 degrees by pain in knee , PROM intact with mobility Strength: intact UEs and left LE, right LE 3/5 and able to bear weight, no MMT due to knee pain Edema: anasarca, ascites and right knee Skin Integrity: redness right knee, team aware and marking Posture: no issues sitting or standing Neurological Function Sensation: intact light touch Muscle Tone: intact Proprioception: intact Gross Motor: intact Fine Motor: intact Balance: independent and good seated balance, minimal assistance and fair standing balance with front wheeled walker Functional Balance Grades Normal Static: Patient able to maintain steady balance without handhold support Dynamic: Patient accepts maximal challenge and can shift weight easily within full range in all directions Good Static: Patient able to maintain balance without handhold support, limited postural sw ay Dynamic: Patient accepts moderate challenge; able to maintain balance while picking object off floor Fair Static: Patient able to maintain balance with handhold support; may require occasional minimal assistance Dynamic: Patient accepts minimal challenge; able to maintain balance while turning head/chema nk Poor Static: Patient requires handhold support and moderate to maximal assistance to mainta in position Dynamic: Patient unable to accept challenge or move without loss of balance O Briana Montano. and Pamela Garcia (2007). Physical rehabilitation: assessment and treatme nt (5th ed.). [place]: [facility] [employer]. p.[phone] Mobility: (NA=not assessed) Rolling moderate assistance Supine to sit moderate assistance head of bed 30 degrees Sit to supine moderate assistance Sit to stand minimal assistance with front wheeled walker Stand to sit minimal assistance with front wheeled walker Gait: Steps to and from commode with front wheeled walker, minimal assistance, decreased si ngle leg stance on right LE Gait speed na ICU Mobility Scale: Score: 5 ICU Mobility Scale A. Nothing in bed 0. Nothing (lying in bed) B. In-bed activity 1. Sitting in bed, exercises in bed C. Out-of-bed activity 2. Passively moved to chair (no standing) 3. Sitting over edge of bed 4. Standing 5. Transferring bed to chair with standing 6. Marching in place at bedside for short duration D. Walking 7. Walking with assistance of 2 or more people 8. Walking with assistance of 1 person 9. Walking independently with a gait aid 10. Walking independently without a gait aid The ICU Mobility Scale Has Construct and Predictive Validity and Is Responsive. A Multicent er Observational Study Ronna Small 1,2, Chan Koehler 1, Vitaliy Cr 1,3,4, Una Coombs 4, Sun rush 5, Ina Giles 3, Carola Hernandez 6,7, Beti Mejia 2,8, Corine Neely 1, Isaiah henley 9,10,11, Cortez Elizondo 12, Candelario Grimaldo 13, Cory Dailey 14,15,16, Jody Ortega er 3,17,18, Bakari Davidson 7,19, Erich Man 20,21, Sonia Ortega 12, and Meera Zelaya 1,2 November 24, 2015 [facility] BASIC MOBILITY Difficulty turning over in bed 2 - Alot - Maximum/Moderate Assistance Difficulty sitting/standing from chair w/ arms 3 - A Little - Minimal/Contact Guard Assist/ Supervision Difficulty moving from supine to sitting on edge of bed 2 - Alot - Maximum/Moderate Assista nce Help needed moving from /to chair/wheelchair 3 - A Little - Minimal/Contact Guard Assist/S upervision Help needed walking in hospital room 3 - A Little - Minimal/Contact Guard assist/Supervisio n Help needed climbing 3-5 steps w/railing 1 - Unable to do/total assistance - Total/Dependen t Assist [facility] Basic Mobility Total Score 14 Interpretation of [facility] Short Form - Basic Mobility: CMS Modifier (G-Code) Score (in points) % of Functional Impairment, Limitation, or Restriction CN 6 100% impaired, limited, restricted CM 7-9 At least 80%, but less than 100% impaired, limited, or restricted CL 10-14 At least 60%, but less than 80% impaired, limited, or restricted CK 15-19 At least 40%, but less than 60% impaired, limited, or restricted CJ 20-22 At least 20%, but less than 40% impaired, limited, or restricted CI 23 At least 1%, but less than 20% impaired, limited, or restricted CH 24 0% impaired, limited, or restricted Ended session: Supine with SCDs and bed alarm on, call light in hand ASSESSMENT: Doug Lawson is a 54 year old admitted on 07/17/2019 with prior level o f function presumed ambulatory. He requires moderate assistance for bed mobility and minimal assistance for standing transfers with a front wheeled walker related to edema and right kn ee pain. Continued physical therapy appropriate to maximize functional independence heading into possible transplant. Level of Assistance Definition Safe Patient Mobility Term Independent Patient does not require any physical supervision or assistance from another pe rson or from an assistive device Independent Modified Independent Patient uses adaptive or assistive equipment Independent Supervsion Patient requires only supervision with therapist standing 15 ft away Independent Stand-by assistance Patient requires verbal or tactile cues from another person, the person is very close to the patient, but is not touching them Independent Contact guard assistance Patient requires support of another person touching them, or their gait belt Supervised Minimal assistance Patient able to perform 75% or more of the activity. Clinician provides assistance for 0-25% of the activity Semi Dependent Moderate assistance Patient able to perform 50-75% of the activity, clinician performs 25-5 0% of the activity Dependent Maximal assistance Patient able to perform 25-50% of activity, clinician performs 50-75% of activity Dependent Dependent Patient performs 0-25% of activity, clinician performs 75-100% of activity Depend ent Recommendations: Recommend maintain familiar caregivers and day to day routine that patient can anticipate including grooming, bathing, scheduled toileting, sleep and mobility opportu nities. Activity Recommendations for Nursing partners: Routine mobility with nursing with front whe eled walker per safe patient mobility check. Patient's progress and activity recommendations were communicated to nursing verbally for h andoff communication. DISCHARGE: RECOMMENDATIONS: Continued PT at next level of care;Assist needed for transfers at dischar ge (moderate assistance bed mobility, minimal assistance transfers with FWW ) This patient has good rehabilitation potential to achieve stated goals (see below and Care Plan for goals) and requires continued Physical Therapy services. Personal factors/Comorbidities; Behavior: Impaired ability to follow commands Learning Factors: Impairment of eye/ear/speech, Difficulty answering conditions regarding t reatment. Social Issues: Medical conditions Medical Conditions Impacting Care: Multiple co-morbidities High - 3 or more personal factors. Body Systems Elements: Body structures & functions: Pain, Range of motion, Strength and Cardiopulmonary status Activity limitations: Impaired bed mobility, Impaired transfers and Impaired gait Participation restrictions: Community activities. High - 4 or more elements Clinical Presentation: High - Unstable: Vital signs response and Pain response Clinical decision making: High Complexity: High level of skill to determine plan of care an d implement changes accordingly Complexity: high GOALS: One week Functional Mobility Goal Patient independent supine to sit to supine with use of bed features via log roll Patient independent sit to stand to sit with use of front wheeled walker from standard adalberto r Patient independent transfer bed to chair to bed with use of front wheeled walker Patient contact guard assistance gait with front wheeled walker 50 feet, gait speed 0.6m/s Patient performs 2 set(s) of 10 repetitions of shoulder elevation , elbow flexion and exten arjun , wrist flexion and extension , hand open and close , ankle pumps , heelslides , SAQ , hip abduction/addution . Patient without AROM deficits bilateral UEs and LEs in supine or sitting PLAN: 5 times per week, for one weeks then re-assess. Interventions to include therapeutic exercise and therapeutic activity. Treatment provided this date: Fit with front wheeled walker and bedside commode for patien t height. Instruction in log roll bed mobility for comfort with right knee pain and in prepa ration of post transplant precautions. Constant verbal and tactile cues with assistance as a rodolfo for log roll. Instruction of front wheeled walker for transfers bed to commode to bed, practice of same with assistance as above. Tamica Chirinos, [id number] The above plan of care and goals were developed and reviewed with patient and nurse. Should this patient discharge from the hospital prior to the next physical therapy treatmen t, this note shall serve as the discharge summary. lan of Care - Trisha Hopson RD - 07/20/2019 11:49 AM PDT Problem: Nutrition Interventions Intervention: Food and nutrient distribution type or amount Note: Pt with inadequate oral intake d/t appetite/mental status changes as shown by pt with minim al intake at this time Continue with Reg diet Encourage PO as tolerated Offer supplements PRN Following Trisha Hopson RD, PRINTED CIRCUIT DESIGNER, LD Pager [phone] Doug Lawson is a 54 y.o. 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 after presenting there with AMS, R knee trauma due to a fall, hyperglycemia, renal insufficiency Diet order:Reg PO Intake:50% x 1 with 1600 ml Ht 71" Wt 82kg BMI 25kg/m2 Est Needs: 1343-1276 kcal (25-30 kcal/kg) and 82-123 gm protein (1-1.5 gm/kg) andoff - Dacia Livingston RN - 07/19/2019 6:37 PM PDTNursing Handoff Patient Daily Goal: to eat a full meal (07/18/191999) [facility] IP NURSE HANDOFF: Tamez hospital course events: T[facility]z hospital course events: Admit 07/18, xfr to MICU for hypotension and afib w/ RVR ESLD, on transplant list. SAFETY Patient/Family Target: Pt will not sustain a fall or injury Progress to Target: Improving As evidenced by: Transferring with two person assist; Donell has difficultly standing from bed or chair. He i s able to take small steps to pivot to chair; he needs assistance returning to bed especiall y with his legs. Right knee and leg are swollen from liver failure and a recent fall onto the right need. Pa in is less with compression dressing removed and leg elevated in the bed. Increased pain in dependent position COMFORT/ANXIETY/BEHAVIOR Patient/Family Target: Donell will report a comfortable level of pain Progress to Target: Improving As evidenced by: See notation under safety Progress to Target: No Change As evidenced by: Please encourage PO intake and liquids. Recommendations Forward: Continue with lactulose for 3 to 5 bm's per day Encourage PO intake; order food for Donell if he is unable to decide. Monitor H/H; transfuse for hemoglobin of 6. Provide barrier cream for bottom; painful with wiping. Soft blood pressure when sleeping; improved while awake: 1 liter LR and 75 gms albumin give n late this shift. Barriers to discharge: Low blood pressure Mental status changes; waxing and waning. New diabetic Will need case management assistance with discharge planning; family is wanting to move him to [place]. ransfer Note - Hamilton modi, Jovany Gomez MD - 07/19/2019 3:52 PM PDTTransfer Summary MICU to General Medicine ID/CC:Donell Lawson is a 54 year old male with a history of alcoholic cirrhosis complicated b y ascites, spur cell anemia, and secondary iron overload listed for liver transplant, and a history of SVT after dobutamine stress test who was admitted to the MICU for unstable atrial fibrillation with RVR. MICUCourse: On arrival to MICU, patient was in unstable Afib with RVR (rates 160s) with blood pressures in 70s/50s. Bedside ultrasound showed flat IVC at clavicle at 10 degrees and underfilling L V, indicating need for fluid resuscitation. Patient was resuscitated with LR and albumin and started on an amiodarone load (bolus --> drip). Rate control achieved with fluids and amiod arone. HD stable with MAP >70. Amiodarone drip stopped after 24 hours, but restarted oral am iodarone 07/20 because home metoprolol dose not sufficiently controlled heart rates. Currentl y continuing loading dose, will convert to maintenance dose 07/27. Currently listed for liver transplant. Procedures: TTE 07/18: 1. The left ventricular size is normal. [...] dated 04/21/2019, there are no significant changes. R knee arthrocentesis by orthopedics: No evidence of septic joint, consistent with hemarthrosis. [facility] Follow Ups: - Continue telemetry - Continue amiodarone 400 PO TID, will convert to maintenance dose 200 PO daily 07/27 - Antibiotics off - NPH insulin 20 units BID - Lispro 14 units TID with medium sliding scale - Hepatology following - Listed for liver transplant Please see daily progress notes for full details regarding medical decision making, etc. Please contact me with any questions about his MICU stay going forward. Jovany Mckinley MD Internal Medicine, PGY 1 [facility] andoff - Cecille Man RN - 07/19/2019 6:13 AM PDTNursing Handoff [facility] IP NURSE HANDOFF: [facility] hospital course events: Admit 07/18, xfr to MICU for hypotension and afib w/ RVR ESLD, liver tx w/u, a fib SAFETY Patient/Family Target: Donell will have stable heart rate and rhythm Progress to Target: Improving As evidenced by: He returned to NSR yesterday around noon (post amio load) and has not had any tachycardia or afib on the monitor Amio drip continues COMFORT/ANXIETY/BEHAVIOR Patient/Family Target: Donell will be able to tolerate mobility with R knee Progress to Target: Improving As evidenced by: He has swelling to his R knee but has been able to bend it and, with walker, pivot to fabiola ir/commode without great discomfort RESTORATIVE MEASURES/SELF-MANAGEMENT Patient/Family Target: Donell will have normal sleep/awake cycles Progress to Target: Improving As evidenced by: Donell was sleeping up until about 5 am and asked to get OOB for breakfast NURSING ASSESSMENT & RECOMMENDATIONS FORWARD Nursing Assessment of Patient Stability Risk: Moderately stable Recommendations Forward: Donell has not had any signs of infection, cultures negative thus far and he is afebrile Lactulose has been successful in producing 3-5 BM/day, had 1 loose BM at 0600, he appears m ore awake and alert than this evening Consider PT to see him about mobility issues r/t R knee swelling SBP have been steady between 85-100 Barriers to discharge: Liver w/u, poor mobility andoff - Rose Villatoro RN - 07/18/2019 5:45 PM PDTNursing Handoff [facility] IP NURSE HANDOFF: [facility] hospital course events: Admit 07/18 ESLD, liver tx w/u, a fib SAFETY Patient/Family Target: Hemodynamic stability Progress to Target: Improving As evidenced by: Back in sinus rhythm as of 1230 today. Amio gtt continues. BP soft but steady. COMFORT/ANXIETY/BEHAVIOR Patient/Family Target: Improved mental status Progress to Target: Improving As evidenced by: Donell was very lethargic to somnolent this morning. Hard to rouse and open his eyes to comm and. He has become more oriented and easily rousable throughout the day, although he continu es to sleep between cares. CAM negative as of this afternoon. RESTORATIVE MEASURES/SELF-MANAGEMENT Patient/Family Target: Donell will meet his BM goal Progress to Target: Improving As evidenced by: Lactulose for 3-5 BMs. Donell had with two of them being large. Might decide to give 2200 do se if he doesn't have anymore this evening, otherwise holding until am. NURSING ASSESSMENT & RECOMMENDATIONS FORWARD Nursing Assessment of Patient Stability Risk: Moderately stable Recommendations Forward: Pt has home med that we are giving, it is in his pt bin. Encourage nutrition and mobility. Monitor mental status and possible encephalopathy. Barriers to discharge: Liver w/u ignificant Event - B Rogelio avelar RN - 07/18/2019 7:21 AM PDTSummary: Unit: 4A TRANS/URO/PL (07/18/19 630) Room #: 08 (07/18/19630) Time Called: 0450 (07/18/19630) Time Ended: 0650 (07/18/19630) Recommendations / Interventions: Primary Reason for Call: HR High (07/18/19630) Interventions: 12 Lead EKG;Labs Sent;EKG Monitoring;NIBP Monitoring;SpO2 Monitoring;Medicat ion Administration (07/18/19630) Situation: Situation: Called to bedside for pt. with tachy arrythmia, 12L done cards to bedside, adeno sine x3 attempts given without result, pt, alert throughout with marginal BP, decision made to transfer to MICU (07/18/19630) Background: Background: see H&P (07/18/19630) Outcome/Personnel: Outcome: Transferred to ICU (07/18/19630) Physician Notified: Yes (07/18/19630) Rogelio Torres RN Rapid Response TeamElectronically signed by Rogelio Torres RN at 7:23 AM PDTSignificant Event - Anastasiya Lyles RN - 07/18/2019 7:00 AM PDTApprox 0450 acti vated MARKETING CAMPAIGN ANALYST for SVT per tele with HR in the 160s and BPs at this time were 80s/50s. Pt has a h x of SVT during stress test for liver transplant workup and was started on Metop; though, un known last dose. MARKETING CAMPAIGN ANALYST RN, primary team and Cardiology came to the bedside. Pt denied CP or SO B. 12 lead done, labs and troponin sent. Pt self-converted for about 5 minutes then reverted back to SVT. Attempted valsalva, carotid massage, and Adenosine with no success and while c onsulting the MICU, pt was found to be in Afib with RVR with SBPs in the 70s. The decision w as made to transfer pt to room 1. Report given to the primary RN and pt transferred witho ut incident. Dr. Montanez to update pt's Doreen EDWARD. ignificant Event - Rojas Cantu MD - 07/18/2019 6:53 AM PDTPt had episode of SVT into 160s. Nurse paged around 4a m with this finding and that she was calling an MARKETING CAMPAIGN ANALYST. We arrived at bedside w/MARKETING CAMPAIGN ANALYST. Carotid si nus massage and modified valsalva tried. Cards fellow called. Pt converted spontaneously harish k to NSR for 5min and reverted to SVT. Prior measures tried a second time w/o success. Cards Fellow at bedside with ECGs and tele on. Adenosine 6mg -> 12mg -> 12mg tried over about 25min. Pts BP remained in 80s/50s. Found to be in A fib w/RVR and requiring cardioversion. M ICU alerted and accepted. Pt transferred to the MICU for further management. Rojas Cantu MD, MPH Department of Medicine, PGY-1 Pager: [phone] ignificant Event - [facility] Rogelio wang RN - 07/18/2019 5:31 AM PDTSummary: Unit: 4A TRANS/URO/PL (07/18/19514) Room #: 8 (07/18/19514) Time Called: 0450 (07/18/19514) Time Ended: 05 (07/18/19514) Recommendations / Interventions: Primary Reason for Call: HR High (07/18/19514) Interventions: 12 Lead EKG (07/18/19514) Situation: Situation: Called to bedside for tachycardia, and cards to bedside, pt. spontaneously co nverted while at bedside, will follow up as needed (07/18/19514) Background: Background: see H&P (07/18/19514) Outcome/Personnel: Outcome: Stayed in room (07/18/19514) Physician Notified: Yes (07/18/19514) Rogelio Torres RN Rapid Response TeamElectronically signed by Rogelio Torres RN at 5:31 AM PDTdocumented in this encounter Plan of Treatment +--------+ + + + + | Date | Type | Specialty | Care Team | Description | +--------+ + + + + | 08/08/ | Telephone-S | Nephrology | Angélica Chao, | | | 2019 | [place] | | [address] [facility] | | | | | | [address] | | | | | | [place], [place] | | | | | | [address] | | | | | | [phone] | | | | | | | | +--------+ + + + + | 09/27/ | Telephone-S | Liver Transplant | Vimal Crowe MD | | | 2019 | [facility] | | [address] | | | | | | [address], | | | | | | [place] [address] | | | | | | [phone] | | | | | | | | +--------+ + + + + | 10/03/ | Appointment | Cardiology | | | | 2019 | | | | | +--------+ + + + + | 10/03/ | Office | Cardiology | Cyril Samuel | | | 2019 | Visit | | MD Patricia [address] | | | | | | [address] | | | | | | [place], [place] | | | | | | [address] | | | | | | [phone] | | | | | | | | +--------+ + + + + + + +--------+ + + | Name | Type | Priori | Associated Diagnoses | Order Schedule | | | | ty | | | + + +--------+ + + | DIFFERENTIAL, SYN FL | Lab - | Routin | | 07/18/2019 until | | | [facility] | e | | herminio 1 | | | Performable | | | completed | | | s | | | | + + +--------+ + + | DIFFERENTIAL, ADD ON | Lab - | Routin | | 07/28/2019 until | | | [facility] | e | | discontinued, 1 | | | Performable | | | completed | | | s | | | | + + +--------+ + + | DIFFERENTIAL, ADD ON | Lab - | Routin | | 07/30/2019 until | | | [facility] | e | | discontinued, 1 | | | Performable | | | completed | | | s | | | | + + +--------+ + + | INTRAPROCEDURE | Imaging | Routin | | One Time for 1 | | IMAGING | | e | | Occurrences starting | | | | | | 08/15/2019 until | | | | | | 08/15/2019, 1 | | | | | | completed | + + +--------+ + + | DIFFERENTIAL, BFL | Lab - | Urgent | | 08/16/2019 until | | | [facility] | | | discontinued, 1 | | | Performable | | | completed | | | s | | | | + + +--------+ + + | RBC MORPHOLOGY | Lab - | Routin | | 08/16/2019 until | | | [facility] | e | | discontinued, 1 | | | Performable | | | completed | | | s | | | | + + +--------+ + + documented as of this encounter Procedures + +--------+ + + + | Procedure Name | Priori | Date/Time | Associated Diagnosis | Comments | | | ty | | | | + +--------+ + + + | CAPILLARY BLOOD | Routin | 08/29/2019 | Alcoholic | Results for this | | GLUCOSE (NO CHG), | e | 2:47 PM | cirrhosis of liver | procedure are in the | | POC | | PST | with ascites (HCC) | results section. | + +--------+ + + + | CAPILLARY BLOOD | Routin | 08/29/2019 | Alcoholic | Results for this | | GLUCOSE (NO CHG), | e | 7:27 AM | cirrhosis of liver | procedure are in the | | POC | | PST | with ascites (HCC) | results section. | + +--------+ + + + | CBC AND AUTO DIFF | Urgent | 08/29/2019 | | Results for this | | | | 6:01 AM | | procedure are in the | | | | PST | | results section. | + +--------+ + + + | INR | Urgent | 08/29/2019 | | Results for this | | | | 6:01 AM | | procedure are in the | | | | PST | | results section. | + +--------+ + + + | CBC, WITH | Urgent | 08/29/2019 | | Results for this | | DIFFERENTIAL | | 6:01 AM | | procedure are in the | | | | PST | | results section. | + +--------+ + + + | COMPLETE METABOLIC | Urgent | 08/29/2019 | | Results for this | | SET | | 6:01 AM | | procedure are in the | | (NA,K,CL,CO2,BUN,CRE | | PST | | results section. | | AT,GLUC,CA,AST,ALT,B | | | | | | KEV TOTAL,ALK | | | | | | PHOS,ALB,PROT TOTAL) | | | | | + +--------+ + + + | TACROLIMUS, WHOLE | Urgent | 08/29/2019 | | Results for this | | BLOOD | | 6:01 AM | | procedure are in the | | | | PST | | results section. | + +--------+ + + + | PHOSPHORUS, PLASMA | Urgent | 08/29/2019 | | Results for this | | | | 6:01 AM | | procedure are in the | | | | PST | | results section. | + +--------+ + + + | MAGNESIUM, PLASMA | Urgent | 08/29/2019 | | Results for this | | | | 6:01 AM | | procedure are in the | | | | PST | | results section. | + +--------+ + + + | LDH TOTAL, PLASMA | Urgent | 08/29/2019 | | Results for this | | | | 6:01 AM | | procedure are in the | | | | PST | | results section. | + +--------+ + + + | AMYLASE, PLASMA | Urgent | 08/29/2019 | | Results for this | | | | 6:01 AM | | procedure are in the | | | | PST | | results section. | + +--------+ + + + | CAPILLARY BLOOD | Routin | 08/28/2019 | Alcoholic | Results for this | | GLUCOSE (NO CHG), | e | 9:06 PM | cirrhosis of liver | procedure are in the | | POC | | PST | with ascites (HCC) | results section. | + +--------+ + + + | CAPILLARY BLOOD | Routin | 08/28/2019 | Alcoholic | Results for this | | GLUCOSE (NO CHG), | e | 6:08 PM | cirrhosis of liver | procedure are in the | | POC | | PST | with ascites (HCC) | results section. | + +--------+ + + + | HEMODIALYSIS | Routin | 08/28/2019 | | | | | e | 4:52 PM | | | | | | PST | | | + +--------+ + + + | CAPILLARY BLOOD | Routin | 08/28/2019 | Alcoholic | Results for this | | GLUCOSE (NO CHG), | e | 1:17 PM | cirrhosis of liver | procedure are in the | | POC | | PST | with ascites (HCC) | results section. | + +--------+ + + + | CAPILLARY BLOOD | Routin | 08/28/2019 | Alcoholic | Results for this | | GLUCOSE (NO CHG), | e | 7:45 AM | cirrhosis of liver | procedure are in the | | POC | | PST | with ascites (HCC) | results section. | + +--------+ + + + | CBC AND AUTO DIFF | Urgent | 08/28/2019 | | Results for this | | | | 5:36 AM | | procedure are in the | | | | PST | | results section. | + +--------+ + + + | INR | Urgent | 08/28/2019 | | Results for this | | | | 5:36 AM | | procedure are in the | | | | PST | | results section. | + +--------+ + + + | CBC, WITH | Urgent | 08/28/2019 | | Results for this | | DIFFERENTIAL | | 5:36 AM | | procedure are in the | | | | PST | | results section. | + +--------+ + + + | COMPLETE METABOLIC | Urgent | 08/28/2019 | | Results for this | | SET | | 5:36 AM | | procedure are in the | | (NA,K,CL,CO2,BUN,CRE | | PST | | results section. | | AT,GLUC,CA,AST,ALT,B | | | | | | KEV TOTAL,ALK | | | | | | PHOS,ALB,PROT TOTAL) | | | | | + +--------+ + + + | TACROLIMUS, WHOLE | Urgent | 08/28/2019 | | Results for this | | BLOOD | | 5:36 AM | | procedure are in the | | | | PST | | results section. | + +--------+ + + + | PHOSPHORUS, PLASMA | Urgent | 08/28/2019 | | Results for this | | | | 5:36 AM | | procedure are in the | | | | PST | | results section. | + +--------+ + + + | MAGNESIUM, PLASMA | Urgent | 08/28/2019 | | Results for this | | | | 5:36 AM | | procedure are in the | | | | PST | | results section. | + +--------+ + + + | LDH TOTAL, PLASMA | Urgent | 08/28/2019 | | Results for this | | | | 5:36 AM | | procedure are in the | | | | PST | | results section. | + +--------+ + + + | AMYLASE, PLASMA | Urgent | 08/28/2019 | | Results for this | | | | 5:36 AM | | procedure are in the | | | | PST | | results section. | + +--------+ + + + | CAPILLARY BLOOD | Routin | 08/27/2019 | Alcoholic | Results for this | | GLUCOSE (NO CHG), | e | 10:48 PM | cirrhosis of liver | procedure are in the | | POC | | PST | with ascites (HCC) | results section. | + +--------+ + + + | CAPILLARY BLOOD | Routin | 08/27/2019 | Alcoholic | Results for this | | GLUCOSE (NO CHG), | e | 6:55 PM | cirrhosis of liver | procedure are in the | | POC | | PST | with ascites (HCC) | results section. | + +--------+ + + + | CAPILLARY BLOOD | Routin | 08/27/2019 | Alcoholic | Results for this | | GLUCOSE (NO CHG), | e | 1:24 PM | cirrhosis of liver | procedure are in the | | POC | | PST | with ascites (HCC) | results section. | + +--------+ + + + | CAPILLARY BLOOD | Routin | 08/27/2019 | Alcoholic | Results for this | | GLUCOSE (NO CHG), | e | 7:15 AM | cirrhosis of liver | procedure are in the | | POC | | PST | with ascites (HCC) | results section. | + +--------+ + + + | CBC AND AUTO DIFF | Urgent | 08/27/2019 | | Results for this | | | | 5:57 AM | | procedure are in the | | | | PST | | results section. | + +--------+ + + + | INR | Urgent | 08/27/2019 | | Results for this | | | | 5:57 AM | | procedure are in the | | | | PST | | results section. | + +--------+ + + + | CBC, WITH | Urgent | 08/27/2019 | | Results for this | | DIFFERENTIAL | | 5:57 AM | | procedure are in the | | | | PST | | results section. | + +--------+ + + + | PREALBUMIN, SERUM | Urgent | 08/27/2019 | | Results for this | | | | 5:57 AM | | procedure are in the | | | | PST | | results section. | + +--------+ + + + | COMPLETE METABOLIC | Urgent | 08/27/2019 | | Results for this | | SET | | 5:57 AM | | procedure are in the | | (NA,K,CL,CO2,BUN,CRE | | PST | | results section. | | AT,GLUC,CA,AST,ALT,B | | | | | | KEV TOTAL,ALK | | | | | | PHOS,ALB,PROT TOTAL) | | | | | + +--------+ + + + | TACROLIMUS, WHOLE | Urgent | 08/27/2019 | | Results for this | | BLOOD | | 5:57 AM | | procedure are in the | | | | PST | | results section. | + +--------+ + + + | PHOSPHORUS, PLASMA | Urgent | 08/27/2019 | | Results for this | | | | 5:57 AM | | procedure are in the | | | | PST | | results section. | + +--------+ + + + | MAGNESIUM, PLASMA | Urgent | 08/27/2019 | | Results for this | | | | 5:57 AM | | procedure are in the | | | | PST | | results section. | + +--------+ + + + | LDH TOTAL, PLASMA | Urgent | 08/27/2019 | | Results for this | | | | 5:57 AM | | procedure are in the | | | | PST | | results section. | + +--------+ + + + | AMYLASE, PLASMA | Urgent | 08/27/2019 | | Results for this | | | | 5:57 AM | | procedure are in the | | | | PST | | results section. | + +--------+ + + + | CARDIOLOGY | | 08/27/2019 | | Results for this | | | | 12:00 AM | | procedure are in the | | | | PST | | results section. | + +--------+ + + + | CARDIOLOGY | | 08/27/2019 | | Results for this | | | | 12:00 AM | | procedure are in the | | | | PST | | results section. | + +--------+ + + + | CAPILLARY BLOOD | Routin | 08/26/2019 | Alcoholic | Results for this | | GLUCOSE (NO CHG), | e | 10:35 PM | cirrhosis of liver | procedure are in the | | POC | | PST | with ascites (HCC) | results section. | + +--------+ + + + | CAPILLARY BLOOD | Routin | 08/26/2019 | Alcoholic | Results for this | | GLUCOSE (NO CHG), | e | 6:55 PM | cirrhosis of liver | procedure are in the | | POC | | PST | with ascites (HCC) | results section. | + +--------+ + + + | CAPILLARY BLOOD | Routin | 08/26/2019 | Alcoholic | Results for this | | GLUCOSE (NO CHG), | e | 12:02 PM | cirrhosis of liver | procedure are in the | | POC | | PST | with ascites (HCC) | results section. | + +--------+ + + + | IR TUNNELED CENTRAL | Routin | 08/26/2019 | | Results for this | | LINE PLACEMENT | e | 9:12 AM | | procedure are in the | | | | PST | | results section. | + +--------+ + + + | CAPILLARY BLOOD | Routin | 08/26/2019 | Alcoholic | Results for this | | GLUCOSE (NO CHG), | e | 7:42 AM | cirrhosis of liver | procedure are in the | | POC | | PST | with ascites (HCC) | results section. | + +--------+ + + + | CBC AND AUTO DIFF | Urgent | 08/26/2019 | | Results for this | | | | 6:12 AM | | procedure are in the | | | | PST | | results section. | + +--------+ + + + | INR | Urgent | 08/26/2019 | | Results for this | | | | 6:12 AM | | procedure are in the | | | | PST | | results section. | + +--------+ + + + | CBC, WITH | Urgent | 08/26/2019 | | Results for this | | DIFFERENTIAL | | 6:12 AM | | procedure are in the | | | | PST | | results section. | + +--------+ + + + | COMPLETE METABOLIC | Urgent | 08/26/2019 | | Results for this | | SET | | 6:12 AM | | procedure are in the | | (NA,K,CL,CO2,BUN,CRE | | PST | | results section. | | AT,GLUC,CA,AST,ALT,B | | | | | | KEV TOTAL,ALK | | | | | | PHOS,ALB,PROT TOTAL) | | | | | + +--------+ + + + | TACROLIMUS, WHOLE | Urgent | 08/26/2019 | | Results for this | | BLOOD | | 6:12 AM | | procedure are in the | | | | PST | | results section. | + +--------+ + + + | PHOSPHORUS, PLASMA | Urgent | 08/26/2019 | | Results for this | | | | 6:12 AM | | procedure are in the | | | | PST | | results section. | + +--------+ + + + | MAGNESIUM, PLASMA | Urgent | 08/26/2019 | | Results for this | | | | 6:12 AM | | procedure are in the | | | | PST | | results section. | + +--------+ + + + | LDH TOTAL, PLASMA | Urgent | 08/26/2019 | | Results for this | | | | 6:12 AM | | procedure are in the | | | | PST | | results section. | + +--------+ + + + | AMYLASE, PLASMA | Urgent | 08/26/2019 | | Results for this | | | | 6:12 AM | | procedure are in the | | | | PST | | results section. | + +--------+ + + + | CARDIOLOGY | | 08/26/2019 | | Results for this | | | | 12:00 AM | | procedure are in the | | | | PST | | results section. | + +--------+ + + + | CAPILLARY BLOOD | Routin | 08/25/2019 | Alcoholic | Results for this | | GLUCOSE (NO CHG), | e | 9:31 PM | cirrhosis of liver | procedure are in the | | POC | | PST | with ascites (HCC) | results section. | + +--------+ + + + | CAPILLARY BLOOD | Routin | 08/25/2019 | Alcoholic | Results for this | | GLUCOSE (NO CHG), | e | 6:57 PM | cirrhosis of liver | procedure are in the | | POC | | PST | with ascites (HCC) | results section. | + +--------+ + + + | CAPILLARY BLOOD | Routin | 08/25/2019 | Alcoholic | Results for this | | GLUCOSE (NO CHG), | e | 1:58 PM | cirrhosis of liver | procedure are in the | | POC | | PST | with ascites (HCC) | results section. | + +--------+ + + + | HEMODIALYSIS | Routin | 08/25/2019 | | | | | e | 8:00 AM | | | | | | PST | | | + +--------+ + + + | CAPILLARY BLOOD | Routin | 08/25/2019 | Alcoholic | Results for this | | GLUCOSE (NO CHG), | e | 7:37 AM | cirrhosis of liver | procedure are in the | | POC | | PST | with ascites (HCC) | results section. | + +--------+ + + + | CBC AND AUTO DIFF | Urgent | 08/25/2019 | | Results for this | | | | 6:32 AM | | procedure are in the | | | | PST | | results section. | + +--------+ + + + | INR | Urgent | 08/25/2019 | | Results for this | | | | 6:32 AM | | procedure are in the | | | | PST | | results section. | + +--------+ + + + | CBC, WITH | Urgent | 08/25/2019 | | Results for this | | DIFFERENTIAL | | 6:32 AM | | procedure are in the | | | | PST | | results section. | + +--------+ + + + | COMPLETE METABOLIC | Urgent | 08/25/2019 | | Results for this | | SET | | 6:32 AM | | procedure are in the | | (NA,K,CL,CO2,BUN,CRE | | PST | | results section. | | AT,GLUC,CA,AST,ALT,B | | | | | | KEV TOTAL,ALK | | | | | | PHOS,ALB,PROT TOTAL) | | | | | + +--------+ + + + | TACROLIMUS, WHOLE | Urgent | 08/25/2019 | | Results for this | | BLOOD | | 6:32 AM | | procedure are in the | | | | PST | | results section. | + +--------+ + + + | PHOSPHORUS, PLASMA | Urgent | 08/25/2019 | | Results for this | | | | 6:32 AM | | procedure are in the | | | | PST | | results section. | + +--------+ + + + | MAGNESIUM, PLASMA | Urgent | 08/25/2019 | | Results for this | | | | 6:32 AM | | procedure are in the | | | | PST | | results section. | + +--------+ + + + | LDH TOTAL, PLASMA | Urgent | 08/25/2019 | | Results for this | | | | 6:32 AM | | procedure are in the | | | | PST | | results section. | + +--------+ + + + | AMYLASE, PLASMA | Urgent | 08/25/2019 | | Results for this | | | | 6:32 AM | | procedure are in the | | | | PST | | results section. | + +--------+ + + + | COAGULOPATHY PANEL | Urgent | 08/25/2019 | | Results for this | | (INR,APTT,FIBRINOGEN | | 1:15 AM | | procedure are in the | | ) | | PST | | results section. | + +--------+ + + + | CARDIOLOGY | | 08/25/2019 | | Results for this | | | | 12:00 AM | | procedure are in the | | | | PST | | results section. | + +--------+ + + + | ANTIBODY SCREEN | Routin | 08/24/2019 | | Results for this | | | e | 11:25 PM | | procedure are in the | | | | PST | | results section. | + +--------+ + + + | TYPE AND SCREEN | Routin | 08/24/2019 | | Results for this | | | e | 11:25 PM | | procedure are in the | | | | PST | | results section. | + +--------+ + + + | ABO & RH TYPE | Routin | 08/24/2019 | | Results for this | | | e | 11:25 PM | | procedure are in the | | | | PST | | results section. | + +--------+ + + + | CBC (HEMOGRAM) ONLY | Urgent | 08/24/2019 | | Results for this | | | | 11:23 PM | | procedure are in the | | | | PST | | results section. | + +--------+ + + + | CBC ONLY | Urgent | 08/24/2019 | | Results for this | | | | 11:23 PM | | procedure are in the | | | | PST | | results section. | + +--------+ + + + | CAPILLARY BLOOD | Routin | 08/24/2019 | Alcoholic | Results for this | | GLUCOSE (NO CHG), | e | 9:33 PM | cirrhosis of liver | procedure are in the | | POC | | PST | with ascites (HCC) | results section. | + +--------+ + + + | CAPILLARY BLOOD | Routin | 08/24/2019 | Alcoholic | Results for this | | GLUCOSE (NO CHG), | e | 7:02 PM | cirrhosis of liver | procedure are in the | | POC | | PST | with ascites (HCC) | results section. | + +--------+ + + + | CAPILLARY BLOOD | Routin | 08/24/2019 | Alcoholic | Results for this | | GLUCOSE (NO CHG), | e | 4:07 PM | cirrhosis of liver | procedure are in the | | POC | | PST | with ascites (HCC) | results section. | + +--------+ + + + | CAPILLARY BLOOD | Routin | 08/24/2019 | Alcoholic | Results for this | | GLUCOSE (NO CHG), | e | 1:38 PM | cirrhosis of liver | procedure are in the | | POC | | PST | with ascites (HCC) | results section. | + +--------+ + + + | CAPILLARY BLOOD | Routin | 08/24/2019 | Alcoholic | Results for this | | GLUCOSE (NO CHG), | e | 10:01 AM | cirrhosis of liver | procedure are in the | | POC | | PST | with ascites (HCC) | results section. | + +--------+ + + + | CAPILLARY BLOOD | Routin | 08/24/2019 | Alcoholic | Results for this | | GLUCOSE (NO CHG), | e | 7:18 AM | cirrhosis of liver | procedure are in the | | POC | | PST | with ascites (HCC) | results section. | + +--------+ + + + | CBC AND AUTO DIFF | Urgent | 08/24/2019 | | Results for this | | | | 5:52 AM | | procedure are in the | | | | PST | | results section. | + +--------+ + + + | INR | Urgent | 08/24/2019 | | Results for this | | | | 5:52 AM | | procedure are in the | | | | PST | | results section. | + +--------+ + + + | CBC, WITH | Urgent | 08/24/2019 | | Results for this | | DIFFERENTIAL | | 5:52 AM | | procedure are in the | | | | PST | | results section. | + +--------+ + + + | PREALBUMIN, SERUM | Urgent | 08/24/2019 | | Results for this | | | | 5:52 AM | | procedure are in the | | | | PST | | results section. | + +--------+ + + + | COMPLETE METABOLIC | Urgent | 08/24/2019 | | Results for this | | SET | | 5:52 AM | | procedure are in the | | (NA,K,CL,CO2,BUN,CRE | | PST | | results section. | | AT,GLUC,CA,AST,ALT,B | | | | | | KEV TOTAL,ALK | | | | | | PHOS,ALB,PROT TOTAL) | | | | | + +--------+ + + + | TACROLIMUS, WHOLE | Urgent | 08/24/2019 | | Results for this | | BLOOD | | 5:52 AM | | procedure are in the | | | | PST | | results section. | + +--------+ + + + | PHOSPHORUS, PLASMA | Urgent | 08/24/2019 | | Results for this | | | | 5:52 AM | | procedure are in the | | | | PST | | results section. | + +--------+ + + + | MAGNESIUM, PLASMA | Urgent | 08/24/2019 | | Results for this | | | | 5:52 AM | | procedure are in the | | | | PST | | results section. | + +--------+ + + + | LDH TOTAL, PLASMA | Urgent | 08/24/2019 | | Results for this | | | | 5:52 AM | | procedure are in the | | | | PST | | results section. | + +--------+ + + + | AMYLASE, PLASMA | Urgent | 08/24/2019 | | Results for this | | | | 5:52 AM | | procedure are in the | | | | PST | | results section. | + +--------+ + + + | CARDIOLOGY | | 08/24/2019 | | Results for this | | | | 12:00 AM | | procedure are in the | | | | PST | | results section. | + +--------+ + + + | CARDIOLOGY | | 08/24/2019 | | Results for this | | | | 12:00 AM | | procedure are in the | | | | PST | | results section. | + +--------+ + + + | CAPILLARY BLOOD | Routin | 08/23/2019 | Alcoholic | Results for this | | GLUCOSE (NO CHG), | e | 11:52 PM | cirrhosis of liver | procedure are in the | | POC | | PST | with ascites (HCC) | results section. | + +--------+ + + + | CAPILLARY BLOOD | Routin | 08/23/2019 | Alcoholic | Results for this | | GLUCOSE (NO CHG), | e | 9:32 PM | cirrhosis of liver | procedure are in the | | POC | | PST | with ascites (HCC) | results section. | + +--------+ + + + | CAPILLARY BLOOD | Routin | 08/23/2019 | Alcoholic | Results for this | | GLUCOSE (NO CHG), | e | 4:18 PM | cirrhosis of liver | procedure are in the | | POC | | PST | with ascites (HCC) | results section. | + +--------+ + + + | CAPILLARY BLOOD | Routin | 08/23/2019 | Alcoholic | Results for this | | GLUCOSE (NO CHG), | e | 12:46 PM | cirrhosis of liver | procedure are in the | | POC | | PST | with ascites (HCC) | results section. | + +--------+ + + + | CAPILLARY BLOOD | Routin | 08/23/2019 | Alcoholic | Results for this | | GLUCOSE (NO CHG), | e | 7:25 AM | cirrhosis of liver | procedure are in the | | POC | | PST | with ascites (HCC) | results section. | + +--------+ + + + | CBC AND AUTO DIFF | Urgent | 08/23/2019 | | Results for this | | | | 5:36 AM | | procedure are in the | | | | PST | | results section. | + +--------+ + + + | CBC, WITH | Urgent | 08/23/2019 | | Results for this | | DIFFERENTIAL | | 5:36 AM | | procedure are in the | | | | PST | | results section. | + +--------+ + + + | COMPLETE METABOLIC | Urgent | 08/23/2019 | | Results for this | | SET | | 5:36 AM | | procedure are in the | | (NA,K,CL,CO2,BUN,CRE | | PST | | results section. | | AT,GLUC,CA,AST,ALT,B | | | | | | KVE TOTAL,ALK | | | | | | PHOS,ALB,PROT TOTAL) | | | | | + +--------+ + + + | TACROLIMUS, WHOLE | Urgent | 08/23/2019 | | Results for this | | BLOOD | | 5:36 AM | | procedure are in the | | | | PST | | results section. | + +--------+ + + + | PHOSPHORUS, PLASMA | Urgent | 08/23/2019 | | Results for this | | | | 5:36 AM | | procedure are in the | | | | PST | | results section. | + +--------+ + + + | MAGNESIUM, PLASMA | Urgent | 08/23/2019 | | Results for this | | | | 5:36 AM | | procedure are in the | | | | PST | | results section. | + +--------+ + + + | LDH TOTAL, PLASMA | Urgent | 08/23/2019 | | Results for this | | | | 5:36 AM | | procedure are in the | | | | PST | | results section. | + +--------+ + + + | AMYLASE, PLASMA | Urgent | 08/23/2019 | | Results for this | | | | 5:36 AM | | procedure are in the | | | | PST | | results section. | + +--------+ + + + | INR | Urgent | 08/23/2019 | | Results for this | | | | 5:35 AM | | procedure are in the | | | | PST | | results section. | + +--------+ + + + | CARDIOLOGY | | 08/23/2019 | | Results for this | | | | 12:00 AM | | procedure are in the | | | | PDT | | results section. | + +--------+ + + + | CAPILLARY BLOOD | Routin | 08/22/2019 | Alcoholic | Results for this | | GLUCOSE (NO CHG), | e | 11:10 PM | cirrhosis of liver | procedure are in the | | POC | | PDT | with ascites (HCC) | results section. | + +--------+ + + + | CAPILLARY BLOOD | Routin | 08/22/2019 | Alcoholic | Results for this | | GLUCOSE (NO CHG), | e | 7:55 PM | cirrhosis of liver | procedure are in the | | POC | | PDT | with ascites (HCC) | results section. | + +--------+ + + + | CAPILLARY BLOOD | Routin | 08/22/2019 | Alcoholic | Results for this | | GLUCOSE (NO CHG), | e | 6:26 PM | cirrhosis of liver | procedure are in the | | POC | | PDT | with ascites (HCC) | results section. | + +--------+ + + + | CAPILLARY BLOOD | Routin | 08/22/2019 | Alcoholic | Results for this | | GLUCOSE (NO CHG), | e | 2:40 PM | cirrhosis of liver | procedure are in the | | POC | | PDT | with ascites (HCC) | results section. | + +--------+ + + + | X-RAY PORTABLE CHEST | Urgent | 08/22/2019 | | Results for this | | 1 VIEW | | 1:36 PM | | procedure are in the | | | | PDT | | results section. | + +--------+ + + + | CVL | Routin | 08/22/2019 | | Results for this | | | e | 1:10 PM | | procedure are in the | | | | PDT | | results section. | + +--------+ + + + | CAPILLARY BLOOD | Routin | 08/22/2019 | Alcoholic | Results for this | | GLUCOSE (NO CHG), | e | 1:02 PM | cirrhosis of liver | procedure are in the | | POC | | PDT | with ascites (HCC) | results section. | + +--------+ + + + | CAPILLARY BLOOD | Routin | 08/22/2019 | Alcoholic | Results for this | | GLUCOSE (NO CHG), | e | 11:25 AM | cirrhosis of liver | procedure are in the | | POC | | PDT | with ascites (HCC) | results section. | + +--------+ + + + | HEMODIALYSIS | Routin | 08/22/2019 | | | | | e | 11:14 AM | | | | | | PDT | | | + +--------+ + + + | CAPILLARY BLOOD | Routin | 08/22/2019 | Alcoholic | Results for this | | GLUCOSE (NO CHG), | e | 10:53 AM | cirrhosis of liver | procedure are in the | | POC | | PDT | with ascites (HCC) | results section. | + +--------+ + + + | CAPILLARY BLOOD | Routin | 08/22/2019 | Alcoholic | Results for this | | GLUCOSE (NO CHG), | e | 10:34 AM | cirrhosis of liver | procedure are in the | | POC | | PDT | with ascites (HCC) | results section. | + +--------+ + + + | CAPILLARY BLOOD | Routin | 08/22/2019 | Alcoholic | Results for this | | GLUCOSE (NO CHG), | e | 10:07 AM | cirrhosis of liver | procedure are in the | | POC | | PDT | with ascites (HCC) | results section. | + +--------+ + + + | CAPILLARY BLOOD | Routin | 08/22/2019 | Alcoholic | Results for this | | GLUCOSE (NO CHG), | e | 9:37 AM | cirrhosis of liver | procedure are in the | | POC | | PDT | with ascites (HCC) | results section. | + +--------+ + + + | CAPILLARY BLOOD | Routin | 08/22/2019 | Alcoholic | Results for this | | GLUCOSE (NO CHG), | e | 9:18 AM | cirrhosis of liver | procedure are in the | | POC | | PDT | with ascites (HCC) | results section. | + +--------+ + + + | CBC AND AUTO DIFF | Urgent | 08/22/2019 | | Results for this | | | | 5:39 AM | | procedure are in the | | | | PDT | | results section. | + +--------+ + + + | INR | Urgent | 08/22/2019 | | Results for this | | | | 5:39 AM | | procedure are in the | | | | PDT | | results section. | + +--------+ + + + | CBC, WITH | Urgent | 08/22/2019 | | Results for this | | DIFFERENTIAL | | 5:39 AM | | procedure are in the | | | | PDT | | results section. | + +--------+ + + + | COMPLETE METABOLIC | Urgent | 08/22/2019 | | Results for this | | SET | | 5:39 AM | | procedure are in the | | (NA,K,CL,CO2,BUN,CRE | | PDT | | results section. | | AT,GLUC,CA,AST,ALT,B | | | | | | KEV TOTAL,ALK | | | | | | PHOS,ALB,PROT TOTAL) | | | | | + +--------+ + + + | TACROLIMUS, WHOLE | Urgent | 08/22/2019 | | Results for this | | BLOOD | | 5:39 AM | | procedure are in the | | | | PDT | | results section. | + +--------+ + + + | PHOSPHORUS, PLASMA | Urgent | 08/22/2019 | | Results for this | | | | 5:39 AM | | procedure are in the | | | | PDT | | results section. | + +--------+ + + + | MAGNESIUM, PLASMA | Urgent | 08/22/2019 | | Results for this | | | | 5:39 AM | | procedure are in the | | | | PDT | | results section. | + +--------+ + + + | LDH TOTAL, PLASMA | Urgent | 08/22/2019 | | Results for this | | | | 5:39 AM | | procedure are in the | | | | PDT | | results section. | + +--------+ + + + | AMYLASE, PLASMA | Urgent | 08/22/2019 | | Results for this | | | | 5:39 AM | | procedure are in the | | | | PDT | | results section. | + +--------+ + + + | CARDIOLOGY | | 08/22/2019 | | Results for this | | | | 12:00 AM | | procedure are in the | | | | PDT | | results section. | + +--------+ + + + | CARDIOLOGY | | 08/22/2019 | | Results for this | | | | 12:00 AM | | procedure are in the | | | | PDT | | results section. 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 | + +--------+ + + + | CAPILLARY BLOOD | Routin | 08/21/2019 | Alcoholic | Results for this | | GLUCOSE (NO CHG), | e | 8:02 PM | cirrhosis of liver | procedure are in the | | POC | | PDT | with ascites (HCC) | results section. | + +--------+ + + + | CAPILLARY BLOOD | Routin | 08/21/2019 | Alcoholic | Results for this | | GLUCOSE (NO CHG), | e | 6:44 PM | cirrhosis of liver | procedure are in the | | POC | | PDT | with ascites (HCC) | results section. | + +--------+ + + + | CAPILLARY BLOOD | Routin | 08/21/2019 | Alcoholic | Results for this | | GLUCOSE (NO CHG), | e | 3:05 PM | cirrhosis of liver | procedure are in the | | POC | | PDT | with ascites (HCC) | results section. | + +--------+ + + + | CAPILLARY BLOOD | Routin | 08/21/2019 | Alcoholic | Results for this | | GLUCOSE (NO CHG), | e | 1:50 PM | cirrhosis of liver | procedure are in the | | POC | | PDT | with ascites (HCC) | results section. | + +--------+ + + + | CAPILLARY BLOOD | Routin | 08/21/2019 | Alcoholic | Results for this | | GLUCOSE (NO CHG), | e | 12:52 PM | cirrhosis of liver | procedure are in the | | POC | | PDT | with ascites (HCC) | results section. | + +--------+ + + + | CAPILLARY BLOOD | Routin | 08/21/2019 | Alcoholic | Results for this | | GLUCOSE (NO CHG), | e | 7:37 AM | cirrhosis of liver | procedure are in the | | POC | | PDT | with ascites (HCC) | results section. | + +--------+ + + + | CBC AND AUTO DIFF | Urgent | 08/21/2019 | | Results for this | | | | 6:58 AM | | procedure are in the | | | | PDT | | results section. | + +--------+ + + + | INR | Urgent | 08/21/2019 | | Results for this | | | | 6:58 AM | | procedure are in the | | | | PDT | | results section. | + +--------+ + + + | CBC, WITH | Urgent | 08/21/2019 | | Results for this | | DIFFERENTIAL | | 6:58 AM | | procedure are in the | | | | PDT | | results section. | + +--------+ + + + | COMPLETE METABOLIC | Urgent | 08/21/2019 | | Results for this | | SET | | 6:58 AM | | procedure are in the | | (NA,K,CL,CO2,BUN,CRE | | PDT | | results section. | | AT,GLUC,CA,AST,ALT,B | | | | | | KEV TOTAL,ALK | | | | | | PHOS,ALB,PROT TOTAL) | | | | | + +--------+ + + + | TACROLIMUS, WHOLE | Urgent | 08/21/2019 | | Results for this | | BLOOD | | 6:58 AM | | procedure are in the | | | | PDT | | results section. | + +--------+ + + + | PHOSPHORUS, PLASMA | Urgent | 08/21/2019 | | Results for this | | | | 6:58 AM | | procedure are in the | | | | PDT | | results section. | + +--------+ + + + | MAGNESIUM, PLASMA | Urgent | 08/21/2019 | | Results for this | | | | 6:58 AM | | procedure are in the | | | | PDT | | results section. | + +--------+ + + + | LDH TOTAL, PLASMA | Urgent | 08/21/2019 | | Results for this | | | | 6:58 AM | | procedure are in the | | | | PDT | | results section. | + +--------+ + + + | AMYLASE, PLASMA | Urgent | 08/21/2019 | | Results for this | | | | 6:58 AM | | procedure are in the | | | | PDT | | results section. | + +--------+ + + + | CARDIOLOGY | | 08/21/2019 | | Results for this | | | | 12:00 AM | | procedure are in the | | | | PDT | | results section. | + +--------+ + + + | CARDIOLOGY | | 08/21/2019 | | Results for this | | | | 12:00 AM | | procedure are in the | | | | PDT | | results section. | + +--------+ + + + | CAPILLARY BLOOD | Routin | 08/20/2019 | Alcoholic | Results for this | | GLUCOSE (NO CHG), | e | 10:14 PM | cirrhosis of liver | procedure are in the | | POC | | PDT | with ascites (HCC) | results section. | + +--------+ + + + | CAPILLARY BLOOD | Routin | 08/20/2019 | Alcoholic | Results for this | | GLUCOSE (NO CHG), | e | 7:19 PM | cirrhosis of liver | procedure are in the | | POC | | PDT | with ascites (HCC) | results section. | + +--------+ + + + | 12 LEAD ECG | Routin | 08/20/2019 | | Results for this | | | e | 12:50 PM | | procedure are in the | | | | PDT | | results section. | + +--------+ + + + | CAPILLARY BLOOD | Routin | 08/20/2019 | Alcoholic | Results for this | | GLUCOSE (NO CHG), | e | 11:41 AM | cirrhosis of liver | procedure are in the | | POC | | PDT | with ascites (HCC) | results section. | + +--------+ + + + | CAPILLARY BLOOD | Routin | 08/20/2019 | Alcoholic | Results for this | | GLUCOSE (NO CHG), | e | 10:55 AM | cirrhosis of liver | procedure are in the | | POC | | PDT | with ascites (HCC) | results section. | + +--------+ + + + | CAPILLARY BLOOD | Routin | 08/20/2019 | Alcoholic | Results for this | | GLUCOSE (NO CHG), | e | 10:04 AM | cirrhosis of liver | procedure are in the | | POC | | PDT | with ascites (HCC) | results section. | + +--------+ + + + | CAPILLARY BLOOD | Routin | 08/20/2019 | Alcoholic | Results for this | | GLUCOSE (NO CHG), | e | 9:04 AM | cirrhosis of liver | procedure are in the | | POC | | PDT | with ascites (HCC) | results section. | + +--------+ + + + | CAPILLARY BLOOD | Routin | 08/20/2019 | Alcoholic | Results for this | | GLUCOSE (NO CHG), | e | 8:20 AM | cirrhosis of liver | procedure are in the | | POC | | PDT | with ascites (HCC) | results section. | + +--------+ + + + | CAPILLARY BLOOD | Routin | 08/20/2019 | Alcoholic | Results for this | | GLUCOSE (NO CHG), | e | 7:46 AM | cirrhosis of liver | procedure are in the | | POC | | PDT | with ascites (HCC) | results section. | + +--------+ + + + | CAPILLARY BLOOD | Routin | 08/20/2019 | Alcoholic | Results for this | | GLUCOSE (NO CHG), | e | 7:02 AM | cirrhosis of liver | procedure are in the | | POC | | PDT | with ascites (HCC) | results section. | + +--------+ + + + | CBC AND AUTO DIFF | Urgent | 08/20/2019 | | Results for this | | | | 6:09 AM | | procedure are in the | | | | PDT | | results section. | + +--------+ + + + | INR | Urgent | 08/20/2019 | | Results for this | | | | 6:09 AM | | procedure are in the | | | | PDT | | results section. | + +--------+ + + + | CBC, WITH | Urgent | 08/20/2019 | | Results for this | | DIFFERENTIAL | | 6:09 AM | | procedure are in the | | | | PDT | | results section. | + +--------+ + + + | PREALBUMIN, SERUM | Urgent | 08/20/2019 | | Results for this | | | | 6:09 AM | | procedure are in the | | | | PDT | | results section. | + +--------+ + + + | COMPLETE METABOLIC | Urgent | 08/20/2019 | | Results for this | | SET | | 6:09 AM | | procedure are in the | | (NA,K,CL,CO2,BUN,CRE | | PDT | | results section. | | AT,GLUC,CA,AST,ALT,B | | | | | | KEV TOTAL,ALK | | | | | | PHOS,ALB,PROT TOTAL) | | | | | + +--------+ + + + | TACROLIMUS, WHOLE | Urgent | 08/20/2019 | | Results for this | | BLOOD | | 6:09 AM | | procedure are in the | | | | PDT | | results section. | + +--------+ + + + | PHOSPHORUS, PLASMA | Urgent | 08/20/2019 | | Results for this | | | | 6:09 AM | | procedure are in the | | | | PDT | | results section. | + +--------+ + + + | MAGNESIUM, PLASMA | Urgent | 08/20/2019 | | Results for this | | | | 6:09 AM | | procedure are in the | | | | PDT | | results section. | + +--------+ + + + | LDH TOTAL, PLASMA | Urgent | 08/20/2019 | | Results for this | | | | 6:09 AM | | procedure are in the | | | | PDT | | results section. | + +--------+ + + + | AMYLASE, PLASMA | Urgent | 08/20/2019 | | Results for this | | | | 6:09 AM | | procedure are in the | | | | PDT | | results section. | + +--------+ + + + | CAPILLARY BLOOD | Routin | 08/20/2019 | Alcoholic | Results for this | | GLUCOSE (NO CHG), | e | 5:59 AM | cirrhosis of liver | procedure are in the | | POC | | PDT | with ascites (HCC) | results section. | + +--------+ + + + | CAPILLARY BLOOD | Routin | 08/20/2019 | Alcoholic | Results for this | | GLUCOSE (NO CHG), | e | 4:43 AM | cirrhosis of liver | procedure are in the | | POC | | PDT | with ascites (HCC) | results section. | + +--------+ + + + | CAPILLARY BLOOD | Routin | 08/20/2019 | Alcoholic | Results for this | | GLUCOSE (NO CHG), | e | 3:44 AM | cirrhosis of liver | procedure are in the | | POC | | PDT | with ascites (HCC) | results section. | + +--------+ + + + | CAPILLARY BLOOD | Routin | 08/20/2019 | Alcoholic | Results for this | | GLUCOSE (NO CHG), | e | 2:40 AM | cirrhosis of liver | procedure are in the | | POC | | PDT | with ascites (HCC) | results section. | + +--------+ + + + | CAPILLARY BLOOD | Routin | 08/20/2019 | Alcoholic | Results for this | | GLUCOSE (NO CHG), | e | 1:41 AM | cirrhosis of liver | procedure are in the | | POC | | PDT | with ascites (HCC) | results section. | + +--------+ + + + | CAPILLARY BLOOD | Routin | 08/20/2019 | Alcoholic | Results for this | | GLUCOSE (NO CHG), | e | 12:40 AM | cirrhosis of liver | procedure are in the | | POC | | PDT | with ascites (HCC) | results section. | + +--------+ + + + | CAPILLARY BLOOD | Routin | 08/19/2019 | Alcoholic | Results for this | | GLUCOSE (NO CHG), | e | 11:38 PM | cirrhosis of liver | procedure are in the | | POC | | PDT | with ascites (HCC) | results section. | + +--------+ + + + | CAPILLARY BLOOD | Routin | 08/19/2019 | Alcoholic | Results for this | | GLUCOSE (NO CHG), | e | 10:32 PM | cirrhosis of liver | procedure are in the | | POC | | PDT | with ascites (HCC) | results section. | + +--------+ + + + | CAPILLARY BLOOD | Routin | 08/19/2019 | Alcoholic | Results for this | | GLUCOSE (NO CHG), | e | 9:33 PM | cirrhosis of liver | procedure are in the | | POC | | PDT | with ascites (HCC) | results section. | + +--------+ + + + | CAPILLARY BLOOD | Routin | 08/19/2019 | Alcoholic | Results for this | | GLUCOSE (NO CHG), | e | 8:21 PM | cirrhosis of liver | procedure are in the | | POC | | PDT | with ascites (HCC) | results section. | + +--------+ + + + | CAPILLARY BLOOD | Routin | 08/19/2019 | Alcoholic | Results for this | | GLUCOSE (NO CHG), | e | 7:37 PM | cirrhosis of liver | procedure are in the | | POC | | PDT | with ascites (HCC) | results section. | + +--------+ + + + | CAPILLARY BLOOD | Routin | 08/19/2019 | Alcoholic | Results for this | | GLUCOSE (NO CHG), | e | 6:56 PM | cirrhosis of liver | procedure are in the | | POC | | PDT | with ascites (HCC) | results section. | + +--------+ + + + | CAPILLARY BLOOD | Routin | 08/19/2019 | Alcoholic | Results for this | | GLUCOSE (NO CHG), | e | 6:24 PM | cirrhosis of liver | procedure are in the | | POC | | PDT | with ascites (HCC) | results section. | + +--------+ + + + | CAPILLARY BLOOD | Routin | 08/19/2019 | Alcoholic | Results for this | | GLUCOSE (NO CHG), | e | 5:11 PM | cirrhosis of liver | procedure are in the | | POC | | PDT | with ascites (HCC) | results section. | + +--------+ + + + | CAPILLARY BLOOD | Routin | 08/19/2019 | Alcoholic | Results for this | | GLUCOSE (NO CHG), | e | 4:01 PM | cirrhosis of liver | procedure are in the | | POC | | PDT | with ascites (HCC) | results section. | + +--------+ + + + | CAPILLARY BLOOD | Routin | 08/19/2019 | Alcoholic | Results for this | | GLUCOSE (NO CHG), | e | 2:41 PM | cirrhosis of liver | procedure are in the | | POC | | PDT | with ascites (HCC) | results section. | + +--------+ + + + | CAPILLARY BLOOD | Routin | 08/19/2019 | Alcoholic | Results for this | | GLUCOSE (NO CHG), | e | 1:41 PM | cirrhosis of liver | procedure are in the | | POC | | PDT | with ascites (HCC) | results section. | + +--------+ + + + | CAPILLARY BLOOD | Routin | 08/19/2019 | Alcoholic | Results for this | | GLUCOSE (NO CHG), | e | 12:51 PM | cirrhosis of liver | procedure are in the | | POC | | PDT | with ascites (HCC) | results section. | + +--------+ + + + | CAPILLARY BLOOD | Routin | 08/19/2019 | Alcoholic | Results for this | | GLUCOSE (NO CHG), | e | 12:07 PM | cirrhosis of liver | procedure are in the | | POC | | PDT | with ascites (HCC) | results section. | + +--------+ + + + | CAPILLARY BLOOD | Routin | 08/19/2019 | Alcoholic | Results for this | | GLUCOSE (NO CHG), | e | 10:55 AM | cirrhosis of liver | procedure are in the | | POC | | PDT | with ascites (HCC) | results section. | + +--------+ + + + | CAPILLARY BLOOD | Routin | 08/19/2019 | Alcoholic | Results for this | | GLUCOSE (NO CHG), | e | 9:46 AM | cirrhosis of liver | procedure are in the | | POC | | PDT | with ascites (HCC) | results section. | + +--------+ + + + | CAPILLARY BLOOD | Routin | 08/19/2019 | Alcoholic | Results for this | | GLUCOSE (NO CHG), | e | 8:42 AM | cirrhosis of liver | procedure are in the | | POC | | PDT | with ascites (HCC) | results section. | + +--------+ + + + | CAPILLARY BLOOD | Routin | 08/19/2019 | Alcoholic | Results for this | | GLUCOSE (NO CHG), | e | 8:00 AM | cirrhosis of liver | procedure are in the | | POC | | PDT | with ascites (HCC) | results section. | + +--------+ + + + | CAPILLARY BLOOD | Routin | 08/19/2019 | Alcoholic | Results for this | | GLUCOSE (NO CHG), | e | 7:20 AM | cirrhosis of liver | procedure are in the | | POC | | PDT | with ascites (HCC) | results section. | + +--------+ + + + | CBC AND AUTO DIFF | Urgent | 08/19/2019 | | Results for this | | | | 6:24 AM | | procedure are in the | | | | PDT | | results section. | + +--------+ + + + | INR | Urgent | 08/19/2019 | | Results for this | | | | 6:24 AM | | procedure are in the | | | | PDT | | results section. | + +--------+ + + + | CBC, WITH | Urgent | 08/19/2019 | | Results for this | | DIFFERENTIAL | | 6:24 AM | | procedure are in the | | | | PDT | | results section. | + +--------+ + + + | COMPLETE METABOLIC | Urgent | 08/19/2019 | | Results for this | | SET | | 6:24 AM | | procedure are in the | | (NA,K,CL,CO2,BUN,CRE | | PDT | | results section. | | AT,GLUC,CA,AST,ALT,B | | | | | | KEV TOTAL,ALK | | | | | | PHOS,ALB,PROT TOTAL) | | | | | + +--------+ + + + | TACROLIMUS, WHOLE | Urgent | 08/19/2019 | | Results for this | | BLOOD | | 6:24 AM | | procedure are in the | | | | PDT | | results section. | + +--------+ + + + | PHOSPHORUS, PLASMA | Urgent | 08/19/2019 | | Results for this | | | | 6:24 AM | | procedure are in the | | | | PDT | | results section. | + +--------+ + + + | MAGNESIUM, PLASMA | Urgent | 08/19/2019 | | Results for this | | | | 6:24 AM | | procedure are in the | | | | PDT | | results section. | + +--------+ + + + | LDH TOTAL, PLASMA | Urgent | 08/19/2019 | | Results for this | | | | 6:24 AM | | procedure are in the | | | | PDT | | results section. | + +--------+ + + + | AMYLASE, PLASMA | Urgent | 08/19/2019 | | Results for this | | | | 6:24 AM | | procedure are in the | | | | PDT | | results section. | + +--------+ + + + | CAPILLARY BLOOD | Routin | 08/19/2019 | Alcoholic | Results for this | | GLUCOSE (NO CHG), | e | 6:16 AM | cirrhosis of liver | procedure are in the | | POC | | PDT | with ascites (HCC) | results section. | + +--------+ + + + | CAPILLARY BLOOD | Routin | 08/19/2019 | Alcoholic | Results for this | | GLUCOSE (NO CHG), | e | 5:26 AM | cirrhosis of liver | procedure are in the | | POC | | PDT | with ascites (HCC) | results section. | + +--------+ + + + | CAPILLARY BLOOD | Routin | 08/19/2019 | Alcoholic | Results for this | | GLUCOSE (NO CHG), | e | 4:17 AM | cirrhosis of liver | procedure are in the | | POC | | PDT | with ascites (HCC) | results section. | + +--------+ + + + | CAPILLARY BLOOD | Routin | 08/19/2019 | Alcoholic | Results for this | | GLUCOSE (NO CHG), | e | 3:19 AM | cirrhosis of liver | procedure are in the | | POC | | PDT | with ascites (HCC) | results section. | + +--------+ + + + | CAPILLARY BLOOD | Routin | 08/19/2019 | Alcoholic | Results for this | | GLUCOSE (NO CHG), | e | 2:23 AM | cirrhosis of liver | procedure are in the | | POC | | PDT | with ascites (HCC) | results section. | + +--------+ + + + | CAPILLARY BLOOD | Routin | 08/19/2019 | Alcoholic | Results for this | | GLUCOSE (NO CHG), | e | 1:29 AM | cirrhosis of liver | procedure are in the | | POC | | PDT | with ascites (HCC) | results section. | + +--------+ + + + | CAPILLARY BLOOD | Routin | 08/19/2019 | Alcoholic | Results for this | | GLUCOSE (NO CHG), | e | 12:22 AM | cirrhosis of liver | procedure are in the | | POC | | PDT | with ascites (HCC) | results section. | + +--------+ + + + | CARDIOLOGY | | 08/19/2019 | | Results for this | | | | 12:00 AM | | procedure are in the | | | | PDT | | results section. | + +--------+ + + + | CARDIOLOGY | | 08/19/2019 | | Results for this | | | | 12:00 AM | | procedure are in the | | | | PDT | | results section. | + +--------+ + + + | CAPILLARY BLOOD | Routin | 08/18/2019 | Alcoholic | Results for this | | GLUCOSE (NO CHG), | e | 11:23 PM | cirrhosis of liver | procedure are in the | | POC | | PDT | with ascites (HCC) | results section. | + +--------+ + + + | CAPILLARY BLOOD | Routin | 08/18/2019 | Alcoholic | Results for this | | GLUCOSE (NO CHG), | e | 10:25 PM | cirrhosis of liver | procedure are in the | | POC | | PDT | with ascites (HCC) | results section. | + +--------+ + + + | CAPILLARY BLOOD | Routin | 08/18/2019 | Alcoholic | Results for this | | GLUCOSE (NO CHG), | e | 9:21 PM | cirrhosis of liver | procedure are in the | | POC | | PDT | with ascites (HCC) | results section. | + +--------+ + + + | CAPILLARY BLOOD | Routin | 08/18/2019 | Alcoholic | Results for this | | GLUCOSE (NO CHG), | e | 8:11 PM | cirrhosis of liver | procedure are in the | | POC | | PDT | with ascites (HCC) | results section. | + +--------+ + + + | CAPILLARY BLOOD | Routin | 08/18/2019 | Alcoholic | Results for this | | GLUCOSE (NO CHG), | e | 6:37 PM | cirrhosis of liver | procedure are in the | | POC | | PDT | with ascites (HCC) | results section. | + +--------+ + + + | CAPILLARY BLOOD | Routin | 08/18/2019 | Alcoholic | Results for this | | GLUCOSE (NO CHG), | e | 5:28 PM | cirrhosis of liver | procedure are in the | | POC | | PDT | with ascites (HCC) | results section. | + +--------+ + + + | CAPILLARY BLOOD | Routin | 08/18/2019 | Alcoholic | Results for this | | GLUCOSE (NO CHG), | e | 4:17 PM | cirrhosis of liver | procedure are in the | | POC | | PDT | with ascites (HCC) | results section. | + +--------+ + + + | CAPILLARY BLOOD | Routin | 08/18/2019 | Alcoholic | Results for this | | GLUCOSE (NO CHG), | e | 3:12 PM | cirrhosis of liver | procedure are in the | | POC | | PDT | with ascites (HCC) | results section. | + +--------+ + + + | CAPILLARY BLOOD | Routin | 08/18/2019 | Alcoholic | Results for this | | GLUCOSE (NO CHG), | e | 2:13 PM | cirrhosis of liver | procedure are in the | | POC | | PDT | with ascites (HCC) | results section. | + +--------+ + + + | CAPILLARY BLOOD | Routin | 08/18/2019 | Alcoholic | Results for this | | GLUCOSE (NO CHG), | e | 1:12 PM | cirrhosis of liver | procedure are in the | | POC | | PDT | with ascites (HCC) | results section. | + +--------+ + + + | TRANSFUSE RED CELLS, | Routin | 08/18/2019 | | | | LEUKOREDUCED | e | 1:09 PM | | | | | | PDT | | | + +--------+ + + + | TRANSFUSE RED CELLS, | Routin | 08/18/2019 | | | | LEUKOREDUCED | e | 12:15 PM | | | | | | PDT | | | + +--------+ + + + | CAPILLARY BLOOD | Routin | 08/18/2019 | Alcoholic | Results for this | | GLUCOSE (NO CHG), | e | 11:27 AM | cirrhosis of liver | procedure are in the | | POC | | PDT | with ascites (HCC) | results section. | + +--------+ + + + | CAPILLARY BLOOD | Routin | 08/18/2019 | Alcoholic | Results for this | | GLUCOSE (NO CHG), | e | 9:58 AM | cirrhosis of liver | procedure are in the | | POC | | PDT | with ascites (HCC) | results section. | + +--------+ + + + | CAPILLARY BLOOD | Routin | 08/18/2019 | Alcoholic | Results for this | | GLUCOSE (NO CHG), | e | 8:40 AM | cirrhosis of liver | procedure are in the | | POC | | PDT | with ascites (HCC) | results section. | + +--------+ + + + | ANTIBODY SCREEN | Routin | 08/18/2019 | | Results for this | | | e | 8:40 AM | | procedure are in the | | | | PDT | | results section. | + +--------+ + + + | TYPE AND SCREEN | Routin | 08/18/2019 | | Results for this | | | e | 8:40 AM | | procedure are in the | | | | PDT | | results section. | + +--------+ + + + | ABO & RH TYPE | Routin | 08/18/2019 | | Results for this | | | e | 8:40 AM | | procedure are in the | | | | PDT | | results section. | + +--------+ + + + | PRODUCT - RED CELLS | Routin | 08/18/2019 | | Results for this | | LEUKOREDUCED | e | 8:26 AM | | procedure are in the | | | | PDT | | results section. | + +--------+ + + + | HB-LAB | Routin | 08/18/2019 | | Results for this | | CROSSMATCH,ELECTRONI | e | 8:26 AM | | procedure are in the | | C | | PDT | | results section. | + +--------+ + + + | CAPILLARY BLOOD | Routin | 08/18/2019 | Alcoholic | Results for this | | GLUCOSE (NO CHG), | e | 7:10 AM | cirrhosis of liver | procedure are in the | | POC | | PDT | with ascites (HCC) | results section. | + +--------+ + + + | CBC AND AUTO DIFF | Urgent | 08/18/2019 | | Results for this | | | | 6:15 AM | | procedure are in the | | | | PDT | | results section. | + +--------+ + + + | CBC, WITH | Urgent | 08/18/2019 | | Results for this | | DIFFERENTIAL | | 6:15 AM | | procedure are in the | | | | PDT | | results section. | + +--------+ + + + | CAPILLARY BLOOD | Routin | 08/18/2019 | Alcoholic | Results for this | | GLUCOSE (NO CHG), | e | 6:14 AM | cirrhosis of liver | procedure are in the | | POC | | PDT | with ascites (HCC) | results section. | + +--------+ + + + | INR | Urgent | 08/18/2019 | | Results for this | | | | 6:14 AM | | procedure are in the | | | | PDT | | results section. | + +--------+ + + + | COMPLETE METABOLIC | Urgent | 08/18/2019 | | Results for this | | SET | | 6:14 AM | | procedure are in the | | (NA,K,CL,CO2,BUN,CRE | | PDT | | results section. | | AT,GLUC,CA,AST,ALT,B | | | | | | KEV TOTAL,ALK | | | | | | PHOS,ALB,PROT TOTAL) | | | | | + +--------+ + + + | TACROLIMUS, WHOLE | Urgent | 08/18/2019 | | Results for this | | BLOOD | | 6:14 AM | | procedure are in the | | | | PDT | | results section. | + +--------+ + + + | PHOSPHORUS, PLASMA | Urgent | 08/18/2019 | | Results for this | | | | 6:14 AM | | procedure are in the | | | | PDT | | results section. | + +--------+ + + + | MAGNESIUM, PLASMA | Urgent | 08/18/2019 | | Results for this | | | | 6:14 AM | | procedure are in the | | | | PDT | | results section. | + +--------+ + + + | LDH TOTAL, PLASMA | Urgent | 08/18/2019 | | Results for this | | | | 6:14 AM | | procedure are in the | | | | PDT | | results section. | + +--------+ + + + | AMYLASE, PLASMA | Urgent | 08/18/2019 | | Results for this | | | | 6:14 AM | | procedure are in the | | | | PDT | | results section. | + +--------+ + + + | CAPILLARY BLOOD | Routin | 08/18/2019 | Alcoholic | Results for this | | GLUCOSE (NO CHG), | e | 5:16 AM | cirrhosis of liver | procedure are in the | | POC | | PDT | with ascites (HCC) | results section. | + +--------+ + + + | CAPILLARY BLOOD | Routin | 08/18/2019 | Alcoholic | Results for this | | GLUCOSE (NO CHG), | e | 4:14 AM | cirrhosis of liver | procedure are in the | | POC | | PDT | with ascites (HCC) | results section. | + +--------+ + + + | CAPILLARY BLOOD | Routin | 08/18/2019 | Alcoholic | Results for this | | GLUCOSE (NO CHG), | e | 3:05 AM | cirrhosis of liver | procedure are in the | | POC | | PDT | with ascites (HCC) | results section. | + +--------+ + + + | CAPILLARY BLOOD | Routin | 08/18/2019 | Alcoholic | Results for this | | GLUCOSE (NO CHG), | e | 1:51 AM | cirrhosis of liver | procedure are in the | | POC | | PDT | with ascites (HCC) | results section. | + +--------+ + + + | CAPILLARY BLOOD | Routin | 08/18/2019 | Alcoholic | Results for this | | GLUCOSE (NO CHG), | e | 12:32 AM | cirrhosis of liver | procedure are in the | | POC | | PDT | with ascites (HCC) | results section. | + +--------+ + + + | CAPILLARY BLOOD | Routin | 08/17/2019 | Alcoholic | Results for this | | GLUCOSE (NO CHG), | e | 11:34 PM | cirrhosis of liver | procedure are in the | | POC | | PDT | with ascites (HCC) | results section. | + +--------+ + + + | CAPILLARY BLOOD | Routin | 08/17/2019 | Alcoholic | Results for this | | GLUCOSE (NO CHG), | e | 10:35 PM | cirrhosis of liver | procedure are in the | | POC | | PDT | with ascites (HCC) | results section. | + +--------+ + + + | CAPILLARY BLOOD | Routin | 08/17/2019 | Alcoholic | Results for this | | GLUCOSE (NO CHG), | e | 9:47 PM | cirrhosis of liver | procedure are in the | | POC | | PDT | with ascites (HCC) | results section. | + +--------+ + + + | CAPILLARY BLOOD | Routin | 08/17/2019 | Alcoholic | Results for this | | GLUCOSE (NO CHG), | e | 8:42 PM | cirrhosis of liver | procedure are in the | | POC | | PDT | with ascites (HCC) | results section. | + +--------+ + + + | CAPILLARY BLOOD | Routin | 08/17/2019 | Alcoholic | Results for this | | GLUCOSE (NO CHG), | e | 7:40 PM | cirrhosis of liver | procedure are in the | | POC | | PDT | with ascites (HCC) | results section. | + +--------+ + + + | CAPILLARY BLOOD | Routin | 08/17/2019 | Alcoholic | Results for this | | GLUCOSE (NO CHG), | e | 6:35 PM | cirrhosis of liver | procedure are in the | | POC | | PDT | with ascites (HCC) | results section. | + +--------+ + + + | CAPILLARY BLOOD | Routin | 08/17/2019 | Alcoholic | Results for this | | GLUCOSE (NO CHG), | e | 5:59 PM | cirrhosis of liver | procedure are in the | | POC | | PDT | with ascites (HCC) | results section. | + +--------+ + + + | CAPILLARY BLOOD | Routin | 08/17/2019 | Alcoholic | Results for this | | GLUCOSE (NO CHG), | e | 4:54 PM | cirrhosis of liver | procedure are in the | | POC | | PDT | with ascites (HCC) | results section. | + +--------+ + + + | PROCEDURE NOTE | Routin | 08/17/2019 | | Results for this | | | e | 4:36 PM | | procedure are in the | | | | PDT | | results section. | + +--------+ + + + | CAPILLARY BLOOD | Routin | 08/17/2019 | Alcoholic | Results for this | | GLUCOSE (NO CHG), | e | 3:50 PM | cirrhosis of liver | procedure are in the | | POC | | PDT | with ascites (HCC) | results section. | + +--------+ + + + | CAPILLARY BLOOD | Routin | 08/17/2019 | Alcoholic | Results for this | | GLUCOSE (NO CHG), | e | 2:35 PM | cirrhosis of liver | procedure are in the | | POC | | PDT | with ascites (HCC) | results section. | + +--------+ + + + | CAPILLARY BLOOD | Routin | 08/17/2019 | Alcoholic | Results for this | | GLUCOSE (NO CHG), | e | 1:31 PM | cirrhosis of liver | procedure are in the | | POC | | PDT | with ascites (HCC) | results section. | + +--------+ + + + | VESSEL STORAGE | Routin | 08/17/2019 | | | | | e | 1:00 PM | | | | | | PDT | | | + +--------+ + + + | CAPILLARY BLOOD | Routin | 08/17/2019 | Alcoholic | Results for this | | GLUCOSE (NO CHG), | e | 12:40 PM | cirrhosis of liver | procedure are in the | | POC | | PDT | with ascites (HCC) | results section. | + +--------+ + + + | CAPILLARY BLOOD | Routin | 08/17/2019 | Alcoholic | Results for this | | GLUCOSE (NO CHG), | e | 10:00 AM | cirrhosis of liver | procedure are in the | | POC | | PDT | with ascites (HCC) | results section. | + +--------+ + + + | CAPILLARY BLOOD | Routin | 08/17/2019 | Alcoholic | Results for this | | GLUCOSE (NO CHG), | e | 7:44 AM | cirrhosis of liver | procedure are in the | | POC | | PDT | with ascites (HCC) | results section. | + +--------+ + + + | TACROLIMUS, WHOLE | Routin | 08/17/2019 | | Results for this | | BLOOD | e | 5:33 AM | | procedure are in the | | | | PDT | | results section. | + +--------+ + + + | CAPILLARY BLOOD | Routin | 08/17/2019 | Alcoholic | Results for this | | GLUCOSE (NO CHG), | e | 5:31 AM | cirrhosis of liver | procedure are in the | | POC | | PDT | with ascites (HCC) | results section. | + +--------+ + + + | CAPILLARY BLOOD | Routin | 08/17/2019 | Alcoholic | Results for this | | GLUCOSE (NO CHG), | e | 3:34 AM | cirrhosis of liver | procedure are in the | | POC | | PDT | with ascites (HCC) | results section. | + +--------+ + + + | CAPILLARY BLOOD | Routin | 08/17/2019 | Alcoholic | Results for this | | GLUCOSE (NO CHG), | e | 1:30 AM | cirrhosis of liver | procedure are in the | | POC | | PDT | with ascites (HCC) | results section. | + +--------+ + + + | CAPILLARY BLOOD | Routin | 08/17/2019 | Alcoholic | Results for this | | GLUCOSE (NO CHG), | e | 12:24 AM | cirrhosis of liver | procedure are in the | | POC | | PDT | with ascites (HCC) | results section. | + +--------+ + + + | CBC AND AUTO DIFF | Urgent | 08/17/2019 | | Results for this | | | | 12:18 AM | | procedure are in the | | | | PDT | | results section. | + +--------+ + + + | CBC, WITH | Urgent | 08/17/2019 | | Results for this | | DIFFERENTIAL | | 12:18 AM | | procedure are in the | | | | PDT | | results section. | + +--------+ + + + | INR | Urgent | 08/17/2019 | | Results for this | | | | 12:17 AM | | procedure are in the | | | | PDT | | results section. | + +--------+ + + + | PREALBUMIN, SERUM | Urgent | 08/17/2019 | | Results for this | | | | 12:17 AM | | procedure are in the | | | | PDT | | results section. | + +--------+ + + + | COMPLETE METABOLIC | Urgent | 08/17/2019 | | Results for this | | SET | | 12:17 AM | | procedure are in the | | (NA,K,CL,CO2,BUN,CRE | | PDT | | results section. | | AT,GLUC,CA,AST,ALT,B | | | | | | KEV TOTAL,ALK | | | | | | PHOS,ALB,PROT TOTAL) | | | | | + +--------+ + + + | APTT (ACT. PART. | Urgent | 08/17/2019 | | Results for this | | THROMBO TIME) | | 12:17 AM | | procedure are in the | | | | PDT | | results section. | + +--------+ + + + | PHOSPHORUS, PLASMA | Urgent | 08/17/2019 | | Results for this | | | | 12:17 AM | | procedure are in the | | | | PDT | | results section. | + +--------+ + + + | LACTATE | Urgent | 08/17/2019 | | Results for this | | | | 12:17 AM | | procedure are in the | | | | PDT | | results section. | + +--------+ + + + | MAGNESIUM, PLASMA | Urgent | 08/17/2019 | | Results for this | | | | 12:17 AM | | procedure are in the | | | | PDT | | results section. | + +--------+ + + + | LDH TOTAL, PLASMA | Urgent | 08/17/2019 | | Results for this | | | | 12:17 AM | | procedure are in the | | | | PDT | | results section. | + +--------+ + + + | AMYLASE, PLASMA | Urgent | 08/17/2019 | | Results for this | | | | 12:17 AM | | procedure are in the | | | | PDT | | results section. | + +--------+ + + + | TRANSFUSE RED CELLS, | Routin | 08/16/2019 | | | | LEUKOREDUCED | e | 11:24 PM | | | | | | PDT | | | + +--------+ + + + | CAPILLARY BLOOD | Routin | 08/16/2019 | Alcoholic | Results for this | | GLUCOSE (NO CHG), | e | 11:17 PM | cirrhosis of liver | procedure are in the | | POC | | PDT | with ascites (HCC) | results section. | + +--------+ + + + | CAPILLARY BLOOD | Routin | 08/16/2019 | Alcoholic | Results for this | | GLUCOSE (NO CHG), | e | 10:06 PM | cirrhosis of liver | procedure are in the | | POC | | PDT | with ascites (HCC) | results section. | + +--------+ + + + | HB-LAB | Routin | 08/16/2019 | | Results for this | | CROSSMATCH,ELECTRONI | e | 9:19 PM | | procedure are in the | | C | | PDT | | results section. | + +--------+ + + + | CAPILLARY BLOOD | Routin | 08/16/2019 | Alcoholic | Results for this | | GLUCOSE (NO CHG), | e | 9:15 PM | cirrhosis of liver | procedure are in the | | POC | | PDT | with ascites (HCC) | results section. | + +--------+ + + + | CBC AND AUTO DIFF | Urgent | 08/16/2019 | | Results for this | | | | 8:52 PM | | procedure are in the | | | | PDT | | results section. | + +--------+ + + + | INR | Urgent | 08/16/2019 | | Results for this | | | | 8:52 PM | | procedure are in the | | | | PDT | | results section. | + +--------+ + + + | CBC, WITH | Urgent | 08/16/2019 | | Results for this | | DIFFERENTIAL | | 8:52 PM | | procedure are in the | | | | PDT | | results section. | + +--------+ + + + | COMPLETE METABOLIC | Urgent | 08/16/2019 | | Results for this | | SET | | 8:52 PM | | procedure are in the | | (NA,K,CL,CO2,BUN,CRE | | PDT | | results section. | | AT,GLUC,CA,AST,ALT,B | | | | | | KEV TOTAL,ALK | | | | | | PHOS,ALB,PROT TOTAL) | | | | | + +--------+ + + + | APTT (ACT. PART. | Urgent | 08/16/2019 | | Results for this | | THROMBO TIME) | | 8:52 PM | | procedure are in the | | | | PDT | | results section. | + +--------+ + + + | LACTATE | Urgent | 08/16/2019 | | Results for this | | | | 8:52 PM | | procedure are in the | | | | PDT | | results section. | + +--------+ + + + | LDH TOTAL, PLASMA | Urgent | 08/16/2019 | | Results for this | | | | 8:52 PM | | procedure are in the | | | | PDT | | results section. | + +--------+ + + + | CAPILLARY BLOOD | Routin | 08/16/2019 | Alcoholic | Results for this | | GLUCOSE (NO CHG), | e | 8:07 PM | cirrhosis of liver | procedure are in the | | POC | | PDT | with ascites (HCC) | results section. | + +--------+ + + + | CAPILLARY BLOOD | Routin | 08/16/2019 | Alcoholic | Results for this | | GLUCOSE (NO CHG), | e | 6:57 PM | cirrhosis of liver | procedure are in the | | POC | | PDT | with ascites (HCC) | results section. | + +--------+ + + + | CAPILLARY BLOOD | Routin | 08/16/2019 | Alcoholic | Results for this | | GLUCOSE (NO CHG), | e | 6:14 PM | cirrhosis of liver | procedure are in the | | POC | | PDT | with ascites (HCC) | results section. | + +--------+ + + + | CAPILLARY BLOOD | Routin | 08/16/2019 | Alcoholic | Results for this | | GLUCOSE (NO CHG), | e | 5:10 PM | cirrhosis of liver | procedure are in the | | POC | | PDT | with ascites (HCC) | results section. | + +--------+ + + + | CBC AND AUTO DIFF | Urgent | 08/16/2019 | | Results for this | | | | 4:48 PM | | procedure are in the | | | | PDT | | results section. | + +--------+ + + + | INR | Urgent | 08/16/2019 | | Results for this | | | | 4:48 PM | | procedure are in the | | | | PDT | | results section. | + +--------+ + + + | CBC, WITH | Urgent | 08/16/2019 | | Results for this | | DIFFERENTIAL | | 4:48 PM | | procedure are in the | | | | PDT | | results section. | + +--------+ + + + | COMPLETE METABOLIC | Urgent | 08/16/2019 | | Results for this | | SET | | 4:48 PM | | procedure are in the | | (NA,K,CL,CO2,BUN,CRE | | PDT | | results section. | | AT,GLUC,CA,AST,ALT,B | | | | | | KEV TOTAL,ALK | | | | | | PHOS,ALB,PROT TOTAL) | | | | | + +--------+ + + + | APTT (ACT. PART. | Urgent | 08/16/2019 | | Results for this | | THROMBO TIME) | | 4:48 PM | | procedure are in the | | | | PDT | | results section. | + +--------+ + + + | LDH TOTAL, PLASMA | Urgent | 08/16/2019 | | Results for this | | | | 4:48 PM | | procedure are in the | | | | PDT | | results section. | + +--------+ + + + | LACTATE | Urgent | 08/16/2019 | | Results for this | | | | 4:45 PM | | procedure are in the | | | | PDT | | results section. | + +--------+ + + + | CAPILLARY BLOOD | Routin | 08/16/2019 | Alcoholic | Results for this | | GLUCOSE (NO CHG), | e | 4:00 PM | cirrhosis of liver | procedure are in the | | POC | | PDT | with ascites (HCC) | results section. | + +--------+ + + + | CAPILLARY BLOOD | Routin | 08/16/2019 | Alcoholic | Results for this | | GLUCOSE (NO CHG), | e | 2:15 PM | cirrhosis of liver | procedure are in the | | POC | | PDT | with ascites (HCC) | results section. | + +--------+ + + + | CAPILLARY BLOOD | Routin | 08/16/2019 | Alcoholic | Results for this | | GLUCOSE (NO CHG), | e | 1:12 PM | cirrhosis of liver | procedure are in the | | POC | | PDT | with ascites (HCC) | results section. | + +--------+ + + + | RBC MORPHOLOGY | Routin | 08/16/2019 | | Results for this | | | e | 12:20 PM | | procedure are in the | | | | PDT | | results section. | + +--------+ + + + | CBC AND AUTO DIFF | Urgent | 08/16/2019 | | Results for this | | | | 12:20 PM | | procedure are in the | | | | PDT | | results section. | + +--------+ + + + | INR | Urgent | 08/16/2019 | | Results for this | | | | 12:20 PM | | procedure are in the | | | | PDT | | results section. | + +--------+ + + + | CBC, WITH | Urgent | 08/16/2019 | | Results for this | | DIFFERENTIAL | | 12:20 PM | | procedure are in the | | | | PDT | | results section. | + +--------+ + + + | COMPLETE METABOLIC | Urgent | 08/16/2019 | | Results for this | | SET | | 12:20 PM | | procedure are in the | | (NA,K,CL,CO2,BUN,CRE | | PDT | | results section. | | AT,GLUC,CA,AST,ALT,B | | | | | | KEV TOTAL,ALK | | | | | | PHOS,ALB,PROT TOTAL) | | | | | + +--------+ + + + | APTT (ACT. PART. | Urgent | 08/16/2019 | | Results for this | | THROMBO TIME) | | 12:20 PM | | procedure are in the | | | | PDT | | results section. | + +--------+ + + + | LACTATE | Urgent | 08/16/2019 | | Results for this | | | | 12:20 PM | | procedure are in the | | | | PDT | | results section. | + +--------+ + + + | LDH TOTAL, PLASMA | Urgent | 08/16/2019 | | Results for this | | | | 12:20 PM | | procedure are in the | | | | PDT | | results section. | + +--------+ + + + | CAPILLARY BLOOD | Routin | 08/16/2019 | Alcoholic | Results for this | | GLUCOSE (NO CHG), | e | 12:19 PM | cirrhosis of liver | procedure are in the | | POC | | PDT | with ascites (HCC) | results section. | + +--------+ + + + | TRANSFUSE FRESH | Routin | 08/16/2019 | | | | FROZEN PLASMA | e | 11:14 AM | | | | | | PDT | | | + +--------+ + + + | CAPILLARY BLOOD | Routin | 08/16/2019 | Alcoholic | Results for this | | GLUCOSE (NO CHG), | e | 11:04 AM | cirrhosis of liver | procedure are in the | | POC | | PDT | with ascites (HCC) | results section. | + +--------+ + + + | BLOOD GASES, | Routin | 08/16/2019 | | Results for this | | ARTERIAL - LAB | e | 9:40 AM | | procedure are in the | | | | PDT | | results section. | + +--------+ + + + | CAPILLARY BLOOD | Routin | 08/16/2019 | Alcoholic | Results for this | | GLUCOSE (NO CHG), | e | 9:35 AM | cirrhosis of liver | procedure are in the | | POC | | PDT | with ascites (HCC) | results section. | + +--------+ + + + | HB-LAB PROCESS | Routin | 08/16/2019 | | Results for this | | FROZEN PLASMA | e | 9:34 AM | | procedure are in the | | | | PDT | | results section. | + +--------+ + + + | 12 LEAD ECG | Routin | 08/16/2019 | | Results for this | | | e | 9:03 AM | | procedure are in the | | | | PDT | | results section. | + +--------+ + + + | X-RAY ABDOMEN 1 VIEW | Routin | 08/16/2019 | | Results for this | | | e | 8:44 AM | | procedure are in the | | | | PDT | | results section. | + +--------+ + + + | X-RAY PORTABLE CHEST | Urgent | 08/16/2019 | | Results for this | | 1 VIEW | | 8:43 AM | | procedure are in the | | | | PDT | | results section. | + +--------+ + + + | INR | Urgent | 08/16/2019 | | Results for this | | | | 8:22 AM | | procedure are in the | | | | PDT | | results section. | + +--------+ + + + | COMPLETE METABOLIC | Urgent | 08/16/2019 | | Results for this | | SET | | 8:22 AM | | procedure are in the | | (NA,K,CL,CO2,BUN,CRE | | PDT | | results section. | | AT,GLUC,CA,AST,ALT,B | | | | | | KEV TOTAL,ALK | | | | | | PHOS,ALB,PROT TOTAL) | | | | | + +--------+ + + + | FIBRINOGEN | Urgent | 08/16/2019 | | Results for this | | | | 8:22 AM | | procedure are in the | | | | PDT | | results section. | + +--------+ + + + | APTT (ACT. PART. | Urgent | 08/16/2019 | | Results for this | | THROMBO TIME) | | 8:22 AM | | procedure are in the | | | | PDT | | results section. | + +--------+ + + + | PHOSPHORUS, PLASMA | Urgent | 08/16/2019 | | Results for this | | | | 8:22 AM | | procedure are in the | | | | PDT | | results section. | + +--------+ + + + | MAGNESIUM, PLASMA | Urgent | 08/16/2019 | | Results for this | | | | 8:22 AM | | procedure are in the | | | | PDT | | results section. | + +--------+ + + + | LDH TOTAL, PLASMA | Urgent | 08/16/2019 | | Results for this | | | | 8:22 AM | | procedure are in the | | | | PDT | | results section. | + +--------+ + + + | AMYLASE, PLASMA | Urgent | 08/16/2019 | | Results for this | | | | 8:22 AM | | procedure are in the | | | | PDT | | results section. | + +--------+ + + + | CBC AND AUTO DIFF | Urgent | 08/16/2019 | | Results for this | | | | 8:21 AM | | procedure are in the | | | | PDT | | results section. | + +--------+ + + + | CBC, WITH | Urgent | 08/16/2019 | | Results for this | | DIFFERENTIAL | | 8:21 AM | | procedure are in the | | | | PDT | | results section. | + +--------+ + + + | LACTATE | Urgent | 08/16/2019 | | Results for this | | | | 8:21 AM | | procedure are in the | | | | PDT | | results section. | + +--------+ + + + | CAPILLARY BLOOD | Routin | 08/16/2019 | Alcoholic | Results for this | | GLUCOSE (NO CHG), | e | 8:17 AM | cirrhosis of liver | procedure are in the | | POC | | PDT | with ascites (HCC) | results section. | + +--------+ + + + | ABG-FULL ABL, POC | Urgent | 08/16/2019 | Alcoholic | Results for this | | | | 7:08 AM | cirrhosis of liver | procedure are in the | | | | PDT | with ascites (HCC) | results section. | + +--------+ + + + | ABG-FULL ABL, POC | Urgent | 08/16/2019 | Alcoholic | Results for this | | | | 6:32 AM | cirrhosis of liver | procedure are in the | | | | PDT | with ascites (HCC) | results section. | + +--------+ + + + | ABG-FULL ABL, POC | Urgent | 08/16/2019 | Alcoholic | Results for this | | | | 6:02 AM | cirrhosis of liver | procedure are in the | | | | PDT | with ascites (HCC) | results section. | + +--------+ + + + | TRANSFUSE FRESH | Routin | 08/16/2019 | | | | FROZEN PLASMA | e | 5:47 AM | | | | | | PDT | | | + +--------+ + + + | ABG-FULL ABL, POC | Urgent | 08/16/2019 | Alcoholic | Results for this | | | | 5:39 AM | cirrhosis of liver | procedure are in the | | | | PDT | with ascites (HCC) | results section. | + +--------+ + + + | ABG-FULL ABL, POC | Urgent | 08/16/2019 | Alcoholic | Results for this | | | | 5:21 AM | cirrhosis of liver | procedure are in the | | | | PDT | with ascites (HCC) | results section. | + +--------+ + + + | TRANSFUSE RED CELLS, | Routin | 08/16/2019 | | | | LEUKOREDUCED | e | 5:08 AM | | | | | | PDT | | | + +--------+ + + + | TRANSFUSE RED CELLS, | Routin | 08/16/2019 | | | | LEUKOREDUCED | e | 5:07 AM | | | | | | PDT | | | + +--------+ + + + | TRANSFUSE RED CELLS, | Routin | 08/16/2019 | | | | LEUKOREDUCED | e | 4:43 AM | | | | | | PDT | | | + +--------+ + + + | ABG-FULL ABL, POC | Urgent | 08/16/2019 | Alcoholic | Results for this | | | | 4:39 AM | cirrhosis of liver | procedure are in the | | | | PDT | with ascites (HCC) | results section. | + +--------+ + + + | ABG-FULL ABL, POC | Urgent | 08/16/2019 | Alcoholic | Results for this | | | | 4:24 AM | cirrhosis of liver | procedure are in the | | | | PDT | with ascites (HCC) | results section. | + +--------+ + + + | ABG-FULL ABL, POC | Urgent | 08/16/2019 | Alcoholic | Results for this | | | | 4:14 AM | cirrhosis of liver | procedure are in the | | | | PDT | with ascites (HCC) | results section. | + +--------+ + + + | ABG-FULL ABL, POC | Urgent | 08/16/2019 | Alcoholic | Results for this | | | | 4:02 AM | cirrhosis of liver | procedure are in the | | | | PDT | with ascites (HCC) | results section. | + +--------+ + + + | SURGICAL PATHOLOGY | Routin | 08/16/2019 | | Results for this | | | e | 4:01 AM | | procedure are in the | | | | PDT | | results section. | + +--------+ + + + | ABG-FULL ABL, POC | Urgent | 08/16/2019 | Alcoholic | Results for this | | | | 3:37 AM | cirrhosis of liver | procedure are in the | | | | PDT | with ascites (HCC) | results section. | + +--------+ + + + | TRANSFUSE RED CELLS, | Routin | 08/16/2019 | | | | LEUKOREDUCED | e | 3:29 AM | | | | | | PDT | | | + +--------+ + + + | TRANSFUSE FRESH | Routin | 08/16/2019 | | | | FROZEN PLASMA | e | 3:28 AM | | | | | | PDT | | | + +--------+ + + + | ABG-FULL ABL, POC | Urgent | 08/16/2019 | Alcoholic | Results for this | | | | 3:06 AM | cirrhosis of liver | procedure are in the | | | | PDT | with ascites (HCC) | results section. | + +--------+ + + + | ABG-FULL ABL, POC | Urgent | 08/16/2019 | Alcoholic | Results for this | | | | 2:18 AM | cirrhosis of liver | procedure are in the | | | | PDT | with ascites (HCC) | results section. | + +--------+ + + + | TRANSFUSE PLATELET | Routin | 08/16/2019 | | | | PHERESIS, | e | 2:07 AM | | | | LEUKOREDUCED | | PDT | | | + +--------+ + + + | TRANSFUSE FRESH | Routin | 08/16/2019 | | | | FROZEN PLASMA | e | 1:46 AM | | | | | | PDT | | | + +--------+ + + + | TRANSFUSE RED CELLS, | Routin | 08/16/2019 | | | | LEUKOREDUCED | e | 1:43 AM | | | | | | PDT | | | + +--------+ + + + | TRANSFUSE RED CELLS, | Routin | 08/16/2019 | | | | LEUKOREDUCED | e | 1:43 AM | | | | | | PDT | | | + +--------+ + + + | ABG-FULL ABL, POC | Urgent | 08/16/2019 | Alcoholic | Results for this | | | | 1:37 AM | cirrhosis of liver | procedure are in the | | | | PDT | with ascites (HCC) | results section. | + +--------+ + + + | CULTURE, FUNGAL | Urgent | 08/16/2019 | | Results for this | | EXCEPT BLOOD, SKIN, | | 1:32 AM | | procedure are in the | | HAIR, NAIL | | PDT | | results section. | + +--------+ + + + | CELL COUNT, BODY FL | Urgent | 08/16/2019 | | Results for this | | | | 1:32 AM | | procedure are in the | | | | PDT | | results section. | + +--------+ + + + | CULTURE, BODY FLUID | Urgent | 08/16/2019 | | Results for this | | | | 1:32 AM | | procedure are in the | | | | PDT | | results section. | + +--------+ + + + | CULTURE, AFB (ALL | Urgent | 08/16/2019 | | Results for this | | SPEC TYPES EXCEPT | | 1:32 AM | | procedure are in the | | BLOOD) | | PDT | | results section. | + +--------+ + + + | LAB HOLD - BODY | Routin | 08/16/2019 | | | | FLUID | e | 1:32 AM | | | | | | PDT | | | + +--------+ + + + | DIFFERENTIAL, BFL | Urgent | 08/16/2019 | | Results for this | | | | 1:32 AM | | procedure are in the | | | | PDT | | results section. | + +--------+ + + + | NON ASSISTANT BUSINESS MANAGER CYTOLOGY | Routin | 08/16/2019 | | Results for this | | | e | 1:32 AM | | procedure are in the | | | | PDT | | results section. | + +--------+ + + + | CELL COUNT DIFF, | Urgent | 08/16/2019 | | Results for this | | BODY FLUID | | 1:32 AM | | procedure are in the | | | | PDT | | results section. | + +--------+ + + + | HB-LAB PROCE LR PL | Urgent | 08/16/2019 | | Results for this | | PHERESIS PART A | | 1:03 AM | | procedure are in the | | | | PDT | | results section. | + +--------+ + + + | PRODUCT - FRESH | Routin | 08/16/2019 | | Results for this | | FROZEN PLASMA | e | 1:03 AM | | procedure are in the | | | | PDT | | results section. | + +--------+ + + + | PRODUCT - FRESH | Routin | 08/16/2019 | | Results for this | | FROZEN PLASMA | e | 1:03 AM | | procedure are in the | | | | PDT | | results section. | + +--------+ + + + | PRODUCT - FRESH | Routin | 08/16/2019 | | Results for this | | FROZEN PLASMA | e | 1:03 AM | | procedure are in the | | | | PDT | | results section. | + +--------+ + + + | PRODUCT - FRESH | Urgent | 08/16/2019 | | Results for this | | FROZEN PLASMA | | 1:03 AM | | procedure are in the | | | | PDT | | results section. | + +--------+ + + + | PRODUCT - RED CELLS | Routin | 08/16/2019 | | Results for this | | LEUKOREDUCED | e | 1:03 AM | | procedure are in the | | | | PDT | | results section. | + +--------+ + + + | PRODUCT - RED CELLS | Routin | 08/16/2019 | | Results for this | | LEUKOREDUCED | e | 1:03 AM | | procedure are in the | | | | PDT | | results section. | + +--------+ + + + | PRODUCT - RED CELLS | Routin | 08/16/2019 | | Results for this | | LEUKOREDUCED | e | 1:03 AM | | procedure are in the | | | | PDT | | results section. | + +--------+ + + + | PRODUCT - RED CELLS | Routin | 08/16/2019 | | Results for this | | LEUKOREDUCED | e | 1:03 AM | | procedure are in the | | | | PDT | | results section. | + +--------+ + + + | PRODUCT - RED CELLS | Routin | 08/16/2019 | | Results for this | | LEUKOREDUCED | e | 1:03 AM | | procedure are in the | | | | PDT | | results section. | + +--------+ + + + | PRODUCT - RED CELLS | Routin | 08/16/2019 | | Results for this | | LEUKOREDUCED | e | 1:03 AM | | procedure are in the | | | | PDT | | results section. | + +--------+ + + + | HB-LAB | Urgent | 08/16/2019 | | Results for this | | CROSSMATCH,ELECTRONI | | 1:03 AM | | procedure are in the | | C | | PDT | | results section. | + +--------+ + + + | ABG-FULL ABL, POC | Urgent | 08/16/2019 | Alcoholic | Results for this | | | | 12:23 AM | cirrhosis of liver | procedure are in the | | | | PDT | with ascites (HCC) | results section. | + +--------+ + + + | THROMBELASTOGRAPH, | Urgent | 08/16/2019 | | Results for this | | POC | | 12:20 AM | | procedure are in the | | | | PDT | | results section. | + +--------+ + + + | THROMBELASTOGRAPH, | Urgent | 08/16/2019 | | Results for this | | POC | | 12:20 AM | | procedure are in the | | | | PDT | | results section. | + +--------+ + + + | THROMBELASTOGRAPH, | Urgent | 08/16/2019 | | Results for this | | POC | | 12:20 AM | | procedure are in the | | | | PDT | | results section. | + +--------+ + + + | THROMBELASTOGRAPH, | Urgent | 08/16/2019 | | Results for this | | POC | | 12:20 AM | | procedure are in the | | | | PDT | | results section. | + +--------+ + + + | LIVER TRANSPLANT | | 08/15/2019 | Alcoholic | | | | | 11:01 PM | Cirrhosis | | | | | PDT | | | + +--------+ + + + | CAPILLARY BLOOD | Routin | 08/15/2019 | Alcoholic | Results for this | | GLUCOSE (NO CHG), | e | 9:24 PM | cirrhosis of liver | procedure are in the | | POC | | PDT | with ascites (HCC) | results section. | + +--------+ + + + | DRUG | Urgent | 08/15/2019 | | Results for this | | SCREEN,URINE;W/CONFI | | 6:06 PM | | procedure are in the | | RM | | PDT | | results section. | + +--------+ + + + | UA, DIPSTICK ONLY | Urgent | 08/15/2019 | | Results for this | | | | 6:06 PM | | procedure are in the | | | | PDT | | results section. | + +--------+ + + + | URINE, MICROSCOPIC | Urgent | 08/15/2019 | | Results for this | | EXAM | | 6:06 PM | | procedure are in the | | | | PDT | | results section. | + +--------+ + + + | ETHYL GLUCURONIDE | Urgent | 08/15/2019 | | Results for this | | QUANT, URINE | | 6:05 PM | | procedure are in the | | | | PDT | | results section. | + +--------+ + + + | 12 LEAD ECG | Routin | 08/15/2019 | | Results for this | | | e | 5:29 PM | | procedure are in the | | | | PDT | | results section. | + +--------+ + + + | CAPILLARY BLOOD | Routin | 08/15/2019 | Alcoholic | Results for this | | GLUCOSE (NO CHG), | e | 4:56 PM | cirrhosis of liver | procedure are in the | | POC | | PDT | with ascites (HCC) | results section. | + +--------+ + + + | X-RAY CHEST 2 VIEW | Urgent | 08/15/2019 | | Results for this | | | | 3:45 PM | | procedure are in the | | | | PDT | | results section. | + +--------+ + + + | HCV/HIV/HBV, DUARTE - | Urgent | 08/15/2019 | | Results for this | | TRANSPLANT ONLY | | 3:04 PM | | procedure are in the | | | | PDT | | results section. | + +--------+ + + + | CBC AND AUTO DIFF | Urgent | 08/15/2019 | | Results for this | | | | 3:04 PM | | procedure are in the | | | | PDT | | results section. | + +--------+ + + + | CBC, WITH | Urgent | 08/15/2019 | | Results for this | | DIFFERENTIAL | | 3:04 PM | | procedure are in the | | | | PDT | | results section. | + +--------+ + + + | ANTIBODY SCREEN | Routin | 08/15/2019 | | Results for this | | | e | 3:04 PM | | procedure are in the | | | | PDT | | results section. | + +--------+ + + + | TYPE AND SCREEN | Routin | 08/15/2019 | | Results for this | | | e | 3:04 PM | | procedure are in the | | | | PDT | | results section. | + +--------+ + + + | ABO & RH TYPE | Routin | 08/15/2019 | | Results for this | | | e | 3:04 PM | | procedure are in the | | | | PDT | | results section. | + +--------+ + + + | HEPATITIS B SURFACE | Urgent | 08/15/2019 | | Results for this | | AG W/REFLEX IF | | 3:03 PM | | procedure are in the | | INDICATED | | PDT | | results section. | + +--------+ + + + | CMV IGG AND IGM ABS, | Urgent | 08/15/2019 | | Results for this | | SERUM | | 3:03 PM | | procedure are in the | | | | PDT | | results section. | + +--------+ + + + | MOE VALDEZ VIRUS | Urgent | 08/15/2019 | | Results for this | | PANEL, SERUM | | 3:03 PM | | procedure are in the | | | | PDT | | results section. | + +--------+ + + + | NICOTINE & | Urgent | 08/15/2019 | | Results for this | | METABOLITES, SERUM | | 3:03 PM | | procedure are in the | | | | PDT | | results section. | + +--------+ + + + | COMPLETE METABOLIC | Urgent | 08/15/2019 | | Results for this | | SET | | 3:03 PM | | procedure are in the | | (NA,K,CL,CO2,BUN,CRE | | PDT | | results section. | | AT,GLUC,CA,AST,ALT,B | | | | | | KEV TOTAL,ALK | | | | | | PHOS,ALB,PROT TOTAL) | | | | | + +--------+ + + + | HIV AB/AG SCREENING | Urgent | 08/15/2019 | | Results for this | | W/REFLEX TO CONFIRM | | 3:03 PM | | procedure are in the | | | | PDT | | results section. | + +--------+ + + + | TOXOPLASMA IGG AB, | Urgent | 08/15/2019 | | Results for this | | SERUM | | 3:03 PM | | procedure are in the | | | | PDT | | results section. | + +--------+ + + + | FERRITIN | Urgent | 08/15/2019 | | Results for this | | | | 3:03 PM | | procedure are in the | | | | PDT | | results section. | + +--------+ + + + | HEPATITIS B SURFACE | Urgent | 08/15/2019 | | Results for this | | AB QUAL, SERUM | | 3:03 PM | | procedure are in the | | | | PDT | | results section. | + +--------+ + + + | HEPATITIS B CORE AB, | Urgent | 08/15/2019 | | Results for this | | SERUM | | 3:03 PM | | procedure are in the | | | | PDT | | results section. | + +--------+ + + + | ETHANOL (ALCOHOL), | Urgent | 08/15/2019 | | Results for this | | BLOOD | | 3:03 PM | | procedure are in the | | | | PDT | | results section. | + +--------+ + + + | BILIRUBIN DIRECT | Urgent | 08/15/2019 | | Results for this | | | | 3:03 PM | | procedure are in the | | | | PDT | | results section. | + +--------+ + + + | URIC ACID, PLASMA | Urgent | 08/15/2019 | | Results for this | | | | 3:03 PM | | procedure are in the | | | | PDT | | results section. | + +--------+ + + + | MAGNESIUM, PLASMA | Urgent | 08/15/2019 | | Results for this | | | | 3:03 PM | | procedure are in the | | | | PDT | | results section. | + +--------+ + + + | LDH TOTAL, PLASMA | Urgent | 08/15/2019 | | Results for this | | | | 3:03 PM | | procedure are in the | | | | PDT | | results section. | + +--------+ + + + | IRON AND TIBC, SERUM | Urgent | 08/15/2019 | | Results for this | | | | 3:03 PM | | procedure are in the | | | | PDT | | results section. | + +--------+ + + + | AMYLASE, PLASMA | Urgent | 08/15/2019 | | Results for this | | | | 3:03 PM | | procedure are in the | | | | PDT | | results section. | + +--------+ + + + | LIT FLOW HLA II AB | Urgent | 08/15/2019 | | | | AG ID, BLOOD | | 3:02 PM | | | | | | PDT | | | + +--------+ + + + | LIT FLOW HLA I AB AG | Urgent | 08/15/2019 | | Results for this | | ID, BLOOD | | 3:02 PM | | procedure are in the | | | | PDT | | results section. | + +--------+ + + + | INR | Urgent | 08/15/2019 | | Results for this | | | | 3:02 PM | | procedure are in the | | | | PDT | | results section. | + +--------+ + + + | FIBRINOGEN | Urgent | 08/15/2019 | | Results for this | | | | 3:02 PM | | procedure are in the | | | | PDT | | results section. | + +--------+ + + + | ALPHA-FETOPROTEIN | Urgent | 08/15/2019 | | Results for this | | TUMOR MARKER, SERUM | | 3:02 PM | | procedure are in the | | | | PDT | | results section. | + +--------+ + + + | HEPATITIS C VIRUS | Urgent | 08/15/2019 | | Results for this | | W/CONFIRMATION | | 3:02 PM | | procedure are in the | | | | PDT | | results section. | + +--------+ + + + | THROMBELASTOGRAPH, | Routin | 08/15/2019 | | Results for this | | POC | e | 3:00 PM | | procedure are in the | | | | PDT | | results section. | + +--------+ + + + | PRODUCT - FRESH | Routin | 08/15/2019 | | Results for this | | FROZEN PLASMA | e | 2:46 PM | | procedure are in the | | | | PDT | | results section. | + +--------+ + + + | PRODUCT - FRESH | Routin | 08/15/2019 | | Results for this | | FROZEN PLASMA | e | 2:46 PM | | procedure are in the | | | | PDT | | results section. | + +--------+ + + + | PRODUCT - FRESH | Routin | 08/15/2019 | | Results for this | | FROZEN PLASMA | e | 2:46 PM | | procedure are in the | | | | PDT | | results section. | + +--------+ + + + | PRODUCT - FRESH | Routin | 08/15/2019 | | Results for this | | FROZEN PLASMA | e | 2:46 PM | | procedure are in the | | | | PDT | | results section. | + +--------+ + + + | HB-LAB PROCESS | Routin | 08/15/2019 | | Results for this | | FROZEN PLASMA | e | 2:46 PM | | procedure are in the | | | | PDT | | results section. | + +--------+ + + + | PRODUCT - RED CELLS | Routin | 08/15/2019 | | Results for this | | LEUKOREDUCED | e | 2:46 PM | | procedure are in the | | | | PDT | | results section. | + +--------+ + + + | PRODUCT - RED CELLS | Routin | 08/15/2019 | | Results for this | | LEUKOREDUCED | e | 2:46 PM | | procedure are in the | | | | PDT | | results section. | + +--------+ + + + | PRODUCT - RED CELLS | Routin | 08/15/2019 | | Results for this | | LEUKOREDUCED | e | 2:46 PM | | procedure are in the | | | | PDT | | results section. | + +--------+ + + + | PRODUCT - RED CELLS | Routin | 08/15/2019 | | Results for this | | LEUKOREDUCED | e | 2:46 PM | | procedure are in the | | | | PDT | | results section. | + +--------+ + + + | HB-LAB | Routin | 08/15/2019 | | Results for this | | CROSSMATCH,ELECTRONI | e | 2:46 PM | | procedure are in the | | C | | PDT | | results section. | + +--------+ + + + | INTRAPROCEDURE | Routin | 08/15/2019 | | Results for this | | IMAGING | e | 2:46 PM | | procedure are in the | | | | PDT | | results section. | + +--------+ + + + | CAPILLARY BLOOD | Routin | 08/15/2019 | Alcoholic | Results for this | | GLUCOSE (NO CHG), | e | 7:41 AM | cirrhosis of liver | procedure are in the | | POC | | PDT | with ascites (HCC) | results section. | + +--------+ + + + | CAPILLARY BLOOD | Routin | 08/15/2019 | Alcoholic | Results for this | | GLUCOSE (NO CHG), | e | 6:39 AM | cirrhosis of liver | procedure are in the | | POC | | PDT | with ascites (HCC) | results section. | + +--------+ + + + | CBC (HEMOGRAM) ONLY | Routin | 08/15/2019 | | Results for this | | | e | 4:54 AM | | procedure are in the | | | | PDT | | results section. | + +--------+ + + + | COMPLETE METABOLIC | Routin | 08/15/2019 | | Results for this | | SET | e | 4:54 AM | | procedure are in the | | (NA,K,CL,CO2,BUN,CRE | | PDT | | results section. | | AT,GLUC,CA,AST,ALT,B | | | | | | KEV TOTAL,ALK | | | | | | PHOS,ALB,PROT TOTAL) | | | | | + +--------+ + + + | CBC ONLY | Routin | 08/15/2019 | | Results for this | | | e | 4:54 AM | | procedure are in the | | | | PDT | | results section. | + +--------+ + + + | COAGULOPATHY PANEL | Routin | 08/15/2019 | | Results for this | | (INR,APTT,FIBRINOGEN | e | 4:54 AM | | procedure are in the | | ) | | PDT | | results section. | + +--------+ + + + | PHOSPHORUS, PLASMA | Routin | 08/15/2019 | | Results for this | | | e | 4:54 AM | | procedure are in the | | | | PDT | | results section. | + +--------+ + + + | MAGNESIUM, PLASMA | Routin | 08/15/2019 | | Results for this | | | e | 4:54 AM | | procedure are in the | | | | PDT | | results section. | + +--------+ + + + | CAPILLARY BLOOD | Routin | 08/14/2019 | Alcoholic | Results for this | | GLUCOSE (NO CHG), | e | 10:44 PM | cirrhosis of liver | procedure are in the | | POC | | PDT | with ascites (HCC) | results section. | + +--------+ + + + | CAPILLARY BLOOD | Routin | 08/14/2019 | Alcoholic | Results for this | | GLUCOSE (NO CHG), | e | 5:10 PM | cirrhosis of liver | procedure are in the | | POC | | PDT | with ascites (HCC) | results section. | + +--------+ + + + | CAPILLARY BLOOD | Routin | 08/14/2019 | Alcoholic | Results for this | | GLUCOSE (NO CHG), | e | 1:01 PM | cirrhosis of liver | procedure are in the | | POC | | PDT | with ascites (HCC) | results section. | + +--------+ + + + | CULTURE, BLOOD BACTI | Routin | 08/14/2019 | | Results for this | | & YEAST [facility] | e | 12:54 PM | | procedure are in the | | | | PDT | | results section. | + +--------+ + + + | CULTURE, BLOOD BACTI | Routin | 08/14/2019 | | Results for this | | & YEAST [facility] | e | 12:54 PM | | procedure are in the | | | | PDT | | results section. | + +--------+ + + + | CULTURE, BLOOD BACTI | Routin | 08/14/2019 | | Results for this | | & YEAST | e | 12:54 PM | | procedure are in the | | | | PDT | | results section. | + +--------+ + + + | CULTURE, BLOOD BACTI | Routin | 08/14/2019 | | Results for this | | & YEAST | e | 12:54 PM | | procedure are in the | | | | PDT | | results section. | + +--------+ + + + | CAPILLARY BLOOD | Routin | 08/14/2019 | Alcoholic | Results for this | | GLUCOSE (NO CHG), | e | 10:21 AM | cirrhosis of liver | procedure are in the | | POC | | PDT | with ascites (HCC) | results section. | + +--------+ + + + | CAPILLARY BLOOD | Routin | 08/14/2019 | Alcoholic | Results for this | | GLUCOSE (NO CHG), | e | 7:56 AM | cirrhosis of liver | procedure are in the | | POC | | PDT | with ascites (HCC) | results section. | + +--------+ + + + | CBC (HEMOGRAM) ONLY | Routin | 08/14/2019 | | Results for this | | | e | 5:47 AM | | procedure are in the | | | | PDT | | results section. | + +--------+ + + + | COMPLETE METABOLIC | Routin | 08/14/2019 | | Results for this | | SET | e | 5:47 AM | | procedure are in the | | (NA,K,CL,CO2,BUN,CRE | | PDT | | results section. | | AT,GLUC,CA,AST,ALT,B | | | | | | KEV TOTAL,ALK | | | | | | PHOS,ALB,PROT TOTAL) | | | | | + +--------+ + + + | CBC ONLY | Routin | 08/14/2019 | | Results for this | | | e | 5:47 AM | | procedure are in the | | | | PDT | | results section. | + +--------+ + + + | COAGULOPATHY PANEL | Routin | 08/14/2019 | | Results for this | | (INR,APTT,FIBRINOGEN | e | 5:47 AM | | procedure are in the | | ) | | PDT | | results section. | + +--------+ + + + | PHOSPHORUS, PLASMA | Routin | 08/14/2019 | | Results for this | | | e | 5:47 AM | | procedure are in the | | | | PDT | | results section. | + +--------+ + + + | MAGNESIUM, PLASMA | Routin | 08/14/2019 | | Results for this | | | e | 5:47 AM | | procedure are in the | | | | PDT | | results section. | + +--------+ + + + | CAPILLARY BLOOD | Routin | 08/14/2019 | Alcoholic | Results for this | | GLUCOSE (NO CHG), | e | 5:28 AM | cirrhosis of liver | procedure are in the | | POC | | PDT | with ascites (HCC) | results section. | + +--------+ + + + | CAPILLARY BLOOD | Routin | 08/14/2019 | Alcoholic | Results for this | | GLUCOSE (NO CHG), | e | 12:01 AM | cirrhosis of liver | procedure are in the | | POC | | PDT | with ascites (HCC) | results section. | + +--------+ + + + | CAPILLARY BLOOD | Routin | 08/13/2019 | Alcoholic | Results for this | | GLUCOSE (NO CHG), | e | 8:39 PM | cirrhosis of liver | procedure are in the | | POC | | PDT | with ascites (HCC) | results section. | + +--------+ + + + | CAPILLARY BLOOD | Routin | 08/13/2019 | Alcoholic | Results for this | | GLUCOSE (NO CHG), | e | 3:45 PM | cirrhosis of liver | procedure are in the | | POC | | PDT | with ascites (HCC) | results section. | + +--------+ + + + | CAPILLARY BLOOD | Routin | 08/13/2019 | Alcoholic | Results for this | | GLUCOSE (NO CHG), | e | 9:28 AM | cirrhosis of liver | procedure are in the | | POC | | PDT | with ascites (HCC) | results section. | + +--------+ + + + | CAPILLARY BLOOD | Routin | 08/13/2019 | Alcoholic | Results for this | | GLUCOSE (NO CHG), | e | 6:32 AM | cirrhosis of liver | procedure are in the | | POC | | PDT | with ascites (HCC) | results section. | + +--------+ + + + | CBC (HEMOGRAM) ONLY | Routin | 08/13/2019 | | Results for this | | | e | 4:41 AM | | procedure are in the | | | | PDT | | results section. | + +--------+ + + + | COMPLETE METABOLIC | Routin | 08/13/2019 | | Results for this | | SET | e | 4:41 AM | | procedure are in the | | (NA,K,CL,CO2,BUN,CRE | | PDT | | results section. | | AT,GLUC,CA,AST,ALT,B | | | | | | KEV TOTAL,ALK | | | | | | PHOS,ALB,PROT TOTAL) | | | | | + +--------+ + + + | CBC ONLY | Routin | 08/13/2019 | | Results for this | | | e | 4:41 AM | | procedure are in the | | | | PDT | | results section. | + +--------+ + + + | COAGULOPATHY PANEL | Routin | 08/13/2019 | | Results for this | | (INR,APTT,FIBRINOGEN | e | 4:41 AM | | procedure are in the | | ) | | PDT | | results section. | + +--------+ + + + | PHOSPHORUS, PLASMA | Routin | 08/13/2019 | | Results for this | | | e | 4:41 AM | | procedure are in the | | | | PDT | | results section. | + +--------+ + + + | MAGNESIUM, PLASMA | Routin | 08/13/2019 | | Results for this | | | e | 4:41 AM | | procedure are in the | | | | PDT | | results section. | + +--------+ + + + | CAPILLARY BLOOD | Routin | 08/13/2019 | Alcoholic | Results for this | | GLUCOSE (NO CHG), | e | 1:33 AM | cirrhosis of liver | procedure are in the | | POC | | PDT | with ascites (HCC) | results section. | + +--------+ + + + | CAPILLARY BLOOD | Routin | 08/12/2019 | Alcoholic | Results for this | | GLUCOSE (NO CHG), | e | 10:28 PM | cirrhosis of liver | procedure are in the | | POC | | PDT | with ascites (HCC) | results section. | + +--------+ + + + | CAPILLARY BLOOD | Routin | 08/12/2019 | Alcoholic | Results for this | | GLUCOSE (NO CHG), | e | 6:52 PM | cirrhosis of liver | procedure are in the | | POC | | PDT | with ascites (HCC) | results section. | + +--------+ + + + | CAPILLARY BLOOD | Routin | 08/12/2019 | Alcoholic | Results for this | | GLUCOSE (NO CHG), | e | 3:40 PM | cirrhosis of liver | procedure are in the | | POC | | PDT | with ascites (HCC) | results section. | + +--------+ + + + | CAPILLARY BLOOD | Routin | 08/12/2019 | Alcoholic | Results for this | | GLUCOSE (NO CHG), | e | 7:38 AM | cirrhosis of liver | procedure are in the | | POC | | PDT | with ascites (HCC) | results section. | + +--------+ + + + | CBC (HEMOGRAM) ONLY | Routin | 08/12/2019 | | Results for this | | | e | 6:37 AM | | procedure are in the | | | | PDT | | results section. | + +--------+ + + + | COMPLETE METABOLIC | Routin | 08/12/2019 | | Results for this | | SET | e | 6:37 AM | | procedure are in the | | (NA,K,CL,CO2,BUN,CRE | | PDT | | results section. | | AT,GLUC,CA,AST,ALT,B | | | | | | KEV TOTAL,ALK | | | | | | PHOS,ALB,PROT TOTAL) | | | | | + +--------+ + + + | CBC ONLY | Routin | 08/12/2019 | | Results for this | | | e | 6:37 AM | | procedure are in the | | | | PDT | | results section. | + +--------+ + + + | COAGULOPATHY PANEL | Routin | 08/12/2019 | | Results for this | | (INR,APTT,FIBRINOGEN | e | 6:37 AM | | procedure are in the | | ) | | PDT | | results section. | + +--------+ + + + | PHOSPHORUS, PLASMA | Routin | 08/12/2019 | | Results for this | | | e | 6:37 AM | | procedure are in the | | | | PDT | | results section. | + +--------+ + + + | MAGNESIUM, PLASMA | Routin | 08/12/2019 | | Results for this | | | e | 6:37 AM | | procedure are in the | | | | PDT | | results section. | + +--------+ + + + | CAPILLARY BLOOD | Routin | 08/12/2019 | Alcoholic | Results for this | | GLUCOSE (NO CHG), | e | 6:13 AM | cirrhosis of liver | procedure are in the | | POC | | PDT | with ascites (HCC) | results section. | + +--------+ + + + | CAPILLARY BLOOD | Routin | 08/11/2019 | Alcoholic | Results for this | | GLUCOSE (NO CHG), | e | 10:46 PM | cirrhosis of liver | procedure are in the | | POC | | PDT | with ascites (HCC) | results section. | + +--------+ + + + | CAPILLARY BLOOD | Routin | 08/11/2019 | Alcoholic | Results for this | | GLUCOSE (NO CHG), | e | 8:57 PM | cirrhosis of liver | procedure are in the | | POC | | PDT | with ascites (HCC) | results section. | + +--------+ + + + | CAPILLARY BLOOD | Routin | 08/11/2019 | Alcoholic | Results for this | | GLUCOSE (NO CHG), | e | 3:03 PM | cirrhosis of liver | procedure are in the | | POC | | PDT | with ascites (HCC) | results section. | + +--------+ + + + | CAPILLARY BLOOD | Routin | 08/11/2019 | Alcoholic | Results for this | | GLUCOSE (NO CHG), | e | 1:26 PM | cirrhosis of liver | procedure are in the | | POC | | PDT | with ascites (HCC) | results section. | + +--------+ + + + | CAPILLARY BLOOD | Routin | 08/11/2019 | Alcoholic | Results for this | | GLUCOSE (NO CHG), | e | 7:43 AM | cirrhosis of liver | procedure are in the | | POC | | PDT | with ascites (HCC) | results section. | + +--------+ + + + | CAPILLARY BLOOD | Routin | 08/11/2019 | Alcoholic | Results for this | | GLUCOSE (NO CHG), | e | 7:31 AM | cirrhosis of liver | procedure are in the | | POC | | PDT | with ascites (HCC) | results section. | + +--------+ + + + | CBC (HEMOGRAM) ONLY | Routin | 08/11/2019 | | Results for this | | | e | 5:48 AM | | procedure are in the | | | | PDT | | results section. | + +--------+ + + + | COMPLETE METABOLIC | Routin | 08/11/2019 | | Results for this | | SET | e | 5:48 AM | | procedure are in the | | (NA,K,CL,CO2,BUN,CRE | | PDT | | results section. | | AT,GLUC,CA,AST,ALT,B | | | | | | KEV TOTAL,ALK | | | | | | PHOS,ALB,PROT TOTAL) | | | | | + +--------+ + + + | CBC ONLY | Routin | 08/11/2019 | | Results for this | | | e | 5:48 AM | | procedure are in the | | | | PDT | | results section. | + +--------+ + + + | COAGULOPATHY PANEL | Routin | 08/11/2019 | | Results for this | | (INR,APTT,FIBRINOGEN | e | 5:48 AM | | procedure are in the | | ) | | PDT | | results section. | + +--------+ + + + | PHOSPHORUS, PLASMA | Routin | 08/11/2019 | | Results for this | | | e | 5:48 AM | | procedure are in the | | | | PDT | | results section. | + +--------+ + + + | MAGNESIUM, PLASMA | Routin | 08/11/2019 | | Results for this | | | e | 5:48 AM | | procedure are in the | | | | PDT | | results section. | + +--------+ + + + | CAPILLARY BLOOD | Routin | 08/11/2019 | Alcoholic | Results for this | | GLUCOSE (NO CHG), | e | 2:50 AM | cirrhosis of liver | procedure are in the | | POC | | PDT | with ascites (HCC) | results section. | + +--------+ + + + | CAPILLARY BLOOD | Routin | 08/10/2019 | Alcoholic | Results for this | | GLUCOSE (NO CHG), | e | 11:09 PM | cirrhosis of liver | procedure are in the | | POC | | PDT | with ascites (HCC) | results section. | + +--------+ + + + | CAPILLARY BLOOD | Routin | 08/10/2019 | Alcoholic | Results for this | | GLUCOSE (NO CHG), | e | 8:44 PM | cirrhosis of liver | procedure are in the | | POC | | PDT | with ascites (HCC) | results section. | + +--------+ + + + | CAPILLARY BLOOD | Routin | 08/10/2019 | Alcoholic | Results for this | | GLUCOSE (NO CHG), | e | 3:29 PM | cirrhosis of liver | procedure are in the | | POC | | PDT | with ascites (HCC) | results section. | + +--------+ + + + | CAPILLARY BLOOD | Routin | 08/10/2019 | Alcoholic | Results for this | | GLUCOSE (NO CHG), | e | 7:33 AM | cirrhosis of liver | procedure are in the | | POC | | PDT | with ascites (HCC) | results section. | + +--------+ + + + | CAPILLARY BLOOD | Routin | 08/10/2019 | Alcoholic | Results for this | | GLUCOSE (NO CHG), | e | 6:33 AM | cirrhosis of liver | procedure are in the | | POC | | PDT | with ascites (HCC) | results section. | + +--------+ + + + | CBC (HEMOGRAM) ONLY | Routin | 08/10/2019 | | Results for this | | | e | 4:49 AM | | procedure are in the | | | | PDT | | results section. | + +--------+ + + + | COMPLETE METABOLIC | Routin | 08/10/2019 | | Results for this | | SET | e | 4:49 AM | | procedure are in the | | (NA,K,CL,CO2,BUN,CRE | | PDT | | results section. | | AT,GLUC,CA,AST,ALT,B | | | | | | KEV TOTAL,ALK | | | | | | PHOS,ALB,PROT TOTAL) | | | | | + +--------+ + + + | CBC ONLY | Routin | 08/10/2019 | | Results for this | | | e | 4:49 AM | | procedure are in the | | | | PDT | | results section. | + +--------+ + + + | COAGULOPATHY PANEL | Routin | 08/10/2019 | | Results for this | | (INR,APTT,FIBRINOGEN | e | 4:49 AM | | procedure are in the | | ) | | PDT | | results section. | + +--------+ + + + | PHOSPHORUS, PLASMA | Routin | 08/10/2019 | | Results for this | | | e | 4:49 AM | | procedure are in the | | | | PDT | | results section. | + +--------+ + + + | MAGNESIUM, PLASMA | Routin | 08/10/2019 | | Results for this | | | e | 4:49 AM | | procedure are in the | | | | PDT | | results section. | + +--------+ + + + | CAPILLARY BLOOD | Routin | 08/10/2019 | Alcoholic | Results for this | | GLUCOSE (NO CHG), | e | 2:45 AM | cirrhosis of liver | procedure are in the | | POC | | PDT | with ascites (HCC) | results section. | + +--------+ + + + | CAPILLARY BLOOD | Routin | 08/09/2019 | Alcoholic | Results for this | | GLUCOSE (NO CHG), | e | 10:02 PM | cirrhosis of liver | procedure are in the | | POC | | PDT | with ascites (HCC) | results section. | + +--------+ + + + | CAPILLARY BLOOD | Routin | 08/09/2019 | Alcoholic | Results for this | | GLUCOSE (NO CHG), | e | 5:12 PM | cirrhosis of liver | procedure are in the | | POC | | PDT | with ascites (HCC) | results section. | + +--------+ + + + | CAPILLARY BLOOD | Routin | 08/09/2019 | Alcoholic | Results for this | | GLUCOSE (NO CHG), | e | 12:07 PM | cirrhosis of liver | procedure are in the | | POC | | PDT | with ascites (HCC) | results section. | + +--------+ + + + | CAPILLARY BLOOD | Routin | 08/09/2019 | Alcoholic | Results for this | | GLUCOSE (NO CHG), | e | 7:50 AM | cirrhosis of liver | procedure are in the | | POC | | PDT | with ascites (HCC) | results section. | + +--------+ + + + | CBC (HEMOGRAM) ONLY | Routin | 08/09/2019 | | Results for this | | | e | 4:39 AM | | procedure are in the | | | | PDT | | results section. | + +--------+ + + + | COMPLETE METABOLIC | Routin | 08/09/2019 | | Results for this | | SET | e | 4:39 AM | | procedure are in the | | (NA,K,CL,CO2,BUN,CRE | | PDT | | results section. | | AT,GLUC,CA,AST,ALT,B | | | | | | KEV TOTAL,ALK | | | | | | PHOS,ALB,PROT TOTAL) | | | | | + +--------+ + + + | CBC ONLY | Routin | 08/09/2019 | | Results for this | | | e | 4:39 AM | | procedure are in the | | | | PDT | | results section. | + +--------+ + + + | COAGULOPATHY PANEL | Routin | 08/09/2019 | | Results for this | | (INR,APTT,FIBRINOGEN | e | 4:39 AM | | procedure are in the | | ) | | PDT | | results section. | + +--------+ + + + | PHOSPHORUS, PLASMA | Routin | 08/09/2019 | | Results for this | | | e | 4:39 AM | | procedure are in the | | | | PDT | | results section. | + +--------+ + + + | MAGNESIUM, PLASMA | Routin | 08/09/2019 | | Results for this | | | e | 4:39 AM | | procedure are in the | | | | PDT | | results section. | + +--------+ + + + | CAPILLARY BLOOD | Routin | 08/09/2019 | Alcoholic | Results for this | | GLUCOSE (NO CHG), | e | 3:34 AM | cirrhosis of liver | procedure are in the | | POC | | PDT | with ascites (HCC) | results section. | + +--------+ + + + | CAPILLARY BLOOD | Routin | 08/09/2019 | Alcoholic | Results for this | | GLUCOSE (NO CHG), | e | 2:49 AM | cirrhosis of liver | procedure are in the | | POC | | PDT | with ascites (HCC) | results section. | + +--------+ + + + | CAPILLARY BLOOD | Routin | 08/08/2019 | Alcoholic | Results for this | | GLUCOSE (NO CHG), | e | 9:39 PM | cirrhosis of liver | procedure are in the | | POC | | PDT | with ascites (HCC) | results section. | + +--------+ + + + | CAPILLARY BLOOD | Routin | 08/08/2019 | Alcoholic | Results for this | | GLUCOSE (NO CHG), | e | 6:32 PM | cirrhosis of liver | procedure are in the | | POC | | PDT | with ascites (HCC) | results section. | + +--------+ + + + | CAPILLARY BLOOD | Routin | 08/08/2019 | Alcoholic | Results for this | | GLUCOSE (NO CHG), | e | 12:36 PM | cirrhosis of liver | procedure are in the | | POC | | PDT | with ascites (HCC) | results section. | + +--------+ + + + | CAPILLARY BLOOD | Routin | 08/08/2019 | Alcoholic | Results for this | | GLUCOSE (NO CHG), | e | 7:45 AM | cirrhosis of liver | procedure are in the | | POC | | PDT | with ascites (HCC) | results section. | + +--------+ + + + | CBC (HEMOGRAM) ONLY | Routin | 08/08/2019 | | Results for this | | | e | 5:18 AM | | procedure are in the | | | | PDT | | results section. | + +--------+ + + + | COMPLETE METABOLIC | Routin | 08/08/2019 | | Results for this | | SET | e | 5:18 AM | | procedure are in the | | (NA,K,CL,CO2,BUN,CRE | | PDT | | results section. | | AT,GLUC,CA,AST,ALT,B | | | | | | KEV TOTAL,ALK | | | | | | PHOS,ALB,PROT TOTAL) | | | | | + +--------+ + + + | CBC ONLY | Routin | 08/08/2019 | | Results for this | | | e | 5:18 AM | | procedure are in the | | | | PDT | | results section. | + +--------+ + + + | COAGULOPATHY PANEL | Routin | 08/08/2019 | | Results for this | | (INR,APTT,FIBRINOGEN | e | 5:18 AM | | procedure are in the | | ) | | PDT | | results section. | + +--------+ + + + | PHOSPHORUS, PLASMA | Routin | 08/08/2019 | | Results for this | | | e | 5:18 AM | | procedure are in the | | | | PDT | | results section. | + +--------+ + + + | MAGNESIUM, PLASMA | Routin | 08/08/2019 | | Results for this | | | e | 5:18 AM | | procedure are in the | | | | PDT | | results section. | + +--------+ + + + | CAPILLARY BLOOD | Routin | 08/08/2019 | Alcoholic | Results for this | | GLUCOSE (NO CHG), | e | 2:58 AM | cirrhosis of liver | procedure are in the | | POC | | PDT | with ascites (HCC) | results section. | + +--------+ + + + | CAPILLARY BLOOD | Routin | 08/07/2019 | Alcoholic | Results for this | | GLUCOSE (NO CHG), | e | 9:40 PM | cirrhosis of liver | procedure are in the | | POC | | PDT | with ascites (HCC) | results section. | + +--------+ + + + | CAPILLARY BLOOD | Routin | 08/07/2019 | Alcoholic | Results for this | | GLUCOSE (NO CHG), | e | 7:19 PM | cirrhosis of liver | procedure are in the | | POC | | PDT | with ascites (HCC) | results section. | + +--------+ + + + | CAPILLARY BLOOD | Routin | 08/07/2019 | Alcoholic | Results for this | | GLUCOSE (NO CHG), | e | 1:05 PM | cirrhosis of liver | procedure are in the | | POC | | PDT | with ascites (HCC) | results section. | + +--------+ + + + | CAPILLARY BLOOD | Routin | 08/07/2019 | Alcoholic | Results for this | | GLUCOSE (NO CHG), | e | 7:53 AM | cirrhosis of liver | procedure are in the | | POC | | PDT | with ascites (HCC) | results section. | + +--------+ + + + | COMPLETE METABOLIC | Routin | 08/07/2019 | | Results for this | | SET | e | 5:02 AM | | procedure are in the | | (NA,K,CL,CO2,BUN,CRE | | PDT | | results section. | | AT,GLUC,CA,AST,ALT,B | | | | | | KEV TOTAL,ALK | | | | | | PHOS,ALB,PROT TOTAL) | | | | | + +--------+ + + + | COAGULOPATHY PANEL | Routin | 08/07/2019 | | Results for this | | (INR,APTT,FIBRINOGEN | e | 5:02 AM | | procedure are in the | | ) | | PDT | | results section. | + +--------+ + + + | PHOSPHORUS, PLASMA | Routin | 08/07/2019 | | Results for this | | | e | 5:02 AM | | procedure are in the | | | | PDT | | results section. | + +--------+ + + + | MAGNESIUM, PLASMA | Routin | 08/07/2019 | | Results for this | | | e | 5:02 AM | | procedure are in the | | | | PDT | | results section. | + +--------+ + + + | CAPILLARY BLOOD | Routin | 08/07/2019 | Alcoholic | Results for this | | GLUCOSE (NO CHG), | e | 3:12 AM | cirrhosis of liver | procedure are in the | | POC | | PDT | with ascites (HCC) | results section. | + +--------+ + + + | CAPILLARY BLOOD | Routin | 08/06/2019 | Alcoholic | Results for this | | GLUCOSE (NO CHG), | e | 9:43 PM | cirrhosis of liver | procedure are in the | | POC | | PDT | with ascites (HCC) | results section. | + +--------+ + + + | CAPILLARY BLOOD | Routin | 08/06/2019 | Alcoholic | Results for this | | GLUCOSE (NO CHG), | e | 6:24 PM | cirrhosis of liver | procedure are in the | | POC | | PDT | with ascites (HCC) | results section. | + +--------+ + + + | CAPILLARY BLOOD | Routin | 08/06/2019 | Alcoholic | Results for this | | GLUCOSE (NO CHG), | e | 1:04 PM | cirrhosis of liver | procedure are in the | | POC | | PDT | with ascites (HCC) | results section. | + +--------+ + + + | CBC (HEMOGRAM) ONLY | Routin | 08/06/2019 | | Results for this | | | e | 4:53 AM | | procedure are in the | | | | PDT | | results section. | + +--------+ + + + | COMPLETE METABOLIC | Routin | 08/06/2019 | | Results for this | | SET | e | 4:53 AM | | procedure are in the | | (NA,K,CL,CO2,BUN,CRE | | PDT | | results section. | | AT,GLUC,CA,AST,ALT,B | | | | | | KEV TOTAL,ALK | | | | | | PHOS,ALB,PROT TOTAL) | | | | | + +--------+ + + + | CBC ONLY | Routin | 08/06/2019 | | Results for this | | | e | 4:53 AM | | procedure are in the | | | | PDT | | results section. | + +--------+ + + + | COAGULOPATHY PANEL | Routin | 08/06/2019 | | Results for this | | (INR,APTT,FIBRINOGEN | e | 4:53 AM | | procedure are in the | | ) | | PDT | | results section. | + +--------+ + + + | PHOSPHORUS, PLASMA | Routin | 08/06/2019 | | Results for this | | | e | 4:53 AM | | procedure are in the | | | | PDT | | results section. | + +--------+ + + + | MAGNESIUM, PLASMA | Routin | 08/06/2019 | | Results for this | | | e | 4:53 AM | | procedure are in the | | | | PDT | | results section. | + +--------+ + + + | CAPILLARY BLOOD | Routin | 08/06/2019 | Alcoholic | Results for this | | GLUCOSE (NO CHG), | e | 3:10 AM | cirrhosis of liver | procedure are in the | | POC | | PDT | with ascites (HCC) | results section. | + +--------+ + + + | CAPILLARY BLOOD | Routin | 08/05/2019 | Alcoholic | Results for this | | GLUCOSE (NO CHG), | e | 11:25 PM | cirrhosis of liver | procedure are in the | | POC | | PDT | with ascites (HCC) | results section. | + +--------+ + + + | CAPILLARY BLOOD | Routin | 08/05/2019 | Alcoholic | Results for this | | GLUCOSE (NO CHG), | e | 8:16 PM | cirrhosis of liver | procedure are in the | | POC | | PDT | with ascites (HCC) | results section. | + +--------+ + + + | CAPILLARY BLOOD | Routin | 08/05/2019 | Alcoholic | Results for this | | GLUCOSE (NO CHG), | e | 11:30 AM | cirrhosis of liver | procedure are in the | | POC | | PDT | with ascites (HCC) | results section. | + +--------+ + + + | CAPILLARY BLOOD | Routin | 08/05/2019 | Alcoholic | Results for this | | GLUCOSE (NO CHG), | e | 8:36 AM | cirrhosis of liver | procedure are in the | | POC | | PDT | with ascites (HCC) | results section. | + +--------+ + + + | CAPILLARY BLOOD | Routin | 08/05/2019 | Alcoholic | Results for this | | GLUCOSE (NO CHG), | e | 6:31 AM | cirrhosis of liver | procedure are in the | | POC | | PDT | with ascites (HCC) | results section. | + +--------+ + + + | COMPLETE METABOLIC | Routin | 08/05/2019 | | Results for this | | SET | e | 5:16 AM | | procedure are in the | | (NA,K,CL,CO2,BUN,CRE | | PDT | | results section. | | AT,GLUC,CA,AST,ALT,B | | | | | | KEV TOTAL,ALK | | | | | | PHOS,ALB,PROT TOTAL) | | | | | + +--------+ + + + | COAGULOPATHY PANEL | Routin | 08/05/2019 | | Results for this | | (INR,APTT,FIBRINOGEN | e | 5:16 AM | | procedure are in the | | ) | | PDT | | results section. | + +--------+ + + + | PHOSPHORUS, PLASMA | Routin | 08/05/2019 | | Results for this | | | e | 5:16 AM | | procedure are in the | | | | PDT | | results section. | + +--------+ + + + | MAGNESIUM, PLASMA | Routin | 08/05/2019 | | Results for this | | | e | 5:16 AM | | procedure are in the | | | | PDT | | results section. | + +--------+ + + + | CAPILLARY BLOOD | Routin | 08/05/2019 | Alcoholic | Results for this | | GLUCOSE (NO CHG), | e | 2:32 AM | cirrhosis of liver | procedure are in the | | POC | | PDT | with ascites (HCC) | results section. | + +--------+ + + + | CAPILLARY BLOOD | Routin | 08/04/2019 | Alcoholic | Results for this | | GLUCOSE (NO CHG), | e | 10:44 PM | cirrhosis of liver | procedure are in the | | POC | | PDT | with ascites (HCC) | results section. | + +--------+ + + + | CAPILLARY BLOOD | Routin | 08/04/2019 | Alcoholic | Results for this | | GLUCOSE (NO CHG), | e | 7:15 PM | cirrhosis of liver | procedure are in the | | POC | | PDT | with ascites (HCC) | results section. | + +--------+ + + + | SODIUM TOTAL, URINE | Routin | 08/04/2019 | | Results for this | | | e | 1:40 PM | | procedure are in the | | | | PDT | | results section. | + +--------+ + + + | UREA NITROGEN, URINE | Routin | 08/04/2019 | | Results for this | | | e | 1:40 PM | | procedure are in the | | | | PDT | | results section. | + +--------+ + + + | CREATININE, URINE | Routin | 08/04/2019 | | Results for this | | | e | 1:40 PM | | procedure are in the | | | | PDT | | results section. | + +--------+ + + + | CAPILLARY BLOOD | Routin | 08/04/2019 | Alcoholic | Results for this | | GLUCOSE (NO CHG), | e | 12:31 PM | cirrhosis of liver | procedure are in the | | POC | | PDT | with ascites (HCC) | results section. | + +--------+ + + + | CAPILLARY BLOOD | Routin | 08/04/2019 | Alcoholic | Results for this | | GLUCOSE (NO CHG), | e | 7:34 AM | cirrhosis of liver | procedure are in the | | POC | | PDT | with ascites (HCC) | results section. | + +--------+ + + + | CAPILLARY BLOOD | Routin | 08/04/2019 | Alcoholic | Results for this | | GLUCOSE (NO CHG), | e | 7:00 AM | cirrhosis of liver | procedure are in the | | POC | | PDT | with ascites (HCC) | results section. | + +--------+ + + + | CBC (HEMOGRAM) ONLY | Routin | 08/04/2019 | | Results for this | | | e | 6:11 AM | | procedure are in the | | | | PDT | | results section. | + +--------+ + + + | COMPLETE METABOLIC | Routin | 08/04/2019 | | Results for this | | SET | e | 6:11 AM | | procedure are in the | | (NA,K,CL,CO2,BUN,CRE | | PDT | | results section. | | AT,GLUC,CA,AST,ALT,B | | | | | | KEV TOTAL,ALK | | | | | | PHOS,ALB,PROT TOTAL) | | | | | + +--------+ + + + | CBC ONLY | Routin | 08/04/2019 | | Results for this | | | e | 6:11 AM | | procedure are in the | | | | PDT | | results section. | + +--------+ + + + | COAGULOPATHY PANEL | Routin | 08/04/2019 | | Results for this | | (INR,APTT,FIBRINOGEN | e | 6:11 AM | | procedure are in the | | ) | | PDT | | results section. | + +--------+ + + + | PHOSPHORUS, PLASMA | Routin | 08/04/2019 | | Results for this | | | e | 6:11 AM | | procedure are in the | | | | PDT | | results section. | + +--------+ + + + | MAGNESIUM, PLASMA | Routin | 08/04/2019 | | Results for this | | | e | 6:11 AM | | procedure are in the | | | | PDT | | results section. | + +--------+ + + + | CAPILLARY BLOOD | Routin | 08/04/2019 | Alcoholic | Results for this | | GLUCOSE (NO CHG), | e | 6:03 AM | cirrhosis of liver | procedure are in the | | POC | | PDT | with ascites (HCC) | results section. | + +--------+ + + + | CAPILLARY BLOOD | Routin | 08/04/2019 | Alcoholic | Results for this | | GLUCOSE (NO CHG), | e | 2:49 AM | cirrhosis of liver | procedure are in the | | POC | | PDT | with ascites (HCC) | results section. | + +--------+ + + + | CAPILLARY BLOOD | Routin | 08/03/2019 | Alcoholic | Results for this | | GLUCOSE (NO CHG), | e | 10:49 PM | cirrhosis of liver | procedure are in the | | POC | | PDT | with ascites (HCC) | results section. | + +--------+ + + + | CAPILLARY BLOOD | Routin | 08/03/2019 | Alcoholic | Results for this | | GLUCOSE (NO CHG), | e | 8:14 PM | cirrhosis of liver | procedure are in the | | POC | | PDT | with ascites (HCC) | results section. | + +--------+ + + + | CAPILLARY BLOOD | Routin | 08/03/2019 | Alcoholic | Results for this | | GLUCOSE (NO CHG), | e | 3:55 PM | cirrhosis of liver | procedure are in the | | POC | | PDT | with ascites (HCC) | results section. | + +--------+ + + + | CAPILLARY BLOOD | Routin | 08/03/2019 | Alcoholic | Results for this | | GLUCOSE (NO CHG), | e | 12:36 PM | cirrhosis of liver | procedure are in the | | POC | | PDT | with ascites (HCC) | results section. | + +--------+ + + + | CAPILLARY BLOOD | Routin | 08/03/2019 | Alcoholic | Results for this | | GLUCOSE (NO CHG), | e | 7:39 AM | cirrhosis of liver | procedure are in the | | POC | | PDT | with ascites (HCC) | results section. | + +--------+ + + + | BASIC METABOLIC SET | Routin | 08/03/2019 | | Results for this | | (NA, K, CL, TCO2, | e | 7:14 AM | | procedure are in the | | BUN, CR, GLU, CA) | | PDT | | results section. | + +--------+ + + + | PHOSPHORUS, PLASMA | Routin | 08/03/2019 | | Results for this | | | e | 7:14 AM | | procedure are in the | | | | PDT | | results section. | + +--------+ + + + | MAGNESIUM, PLASMA | Routin | 08/03/2019 | | Results for this | | | e | 7:14 AM | | procedure are in the | | | | PDT | | results section. | + +--------+ + + + | CAPILLARY BLOOD | Routin | 08/03/2019 | Alcoholic | Results for this | | GLUCOSE (NO CHG), | e | 6:05 AM | cirrhosis of liver | procedure are in the | | POC | | PDT | with ascites (HCC) | results section. | + +--------+ + + + | CAPILLARY BLOOD | Routin | 08/03/2019 | Alcoholic | Results for this | | GLUCOSE (NO CHG), | e | 1:51 AM | cirrhosis of liver | procedure are in the | | POC | | PDT | with ascites (HCC) | results section. | + +--------+ + + + | CAPILLARY BLOOD | Routin | 08/03/2019 | Alcoholic | Results for this | | GLUCOSE (NO CHG), | e | 12:07 AM | cirrhosis of liver | procedure are in the | | POC | | PDT | with ascites (HCC) | results section. | + +--------+ + + + | CAPILLARY BLOOD | Routin | 08/02/2019 | Alcoholic | Results for this | | GLUCOSE (NO CHG), | e | 10:22 PM | cirrhosis of liver | procedure are in the | | POC | | PDT | with ascites (HCC) | results section. | + +--------+ + + + | CAPILLARY BLOOD | Routin | 08/02/2019 | Alcoholic | Results for this | | GLUCOSE (NO CHG), | e | 5:13 PM | cirrhosis of liver | procedure are in the | | POC | | PDT | with ascites (HCC) | results section. | + +--------+ + + + | CAPILLARY BLOOD | Routin | 08/02/2019 | Alcoholic | Results for this | | GLUCOSE (NO CHG), | e | 12:20 PM | cirrhosis of liver | procedure are in the | | POC | | PDT | with ascites (HCC) | results section. | + +--------+ + + + | CAPILLARY BLOOD | Routin | 08/02/2019 | Alcoholic | Results for this | | GLUCOSE (NO CHG), | e | 8:58 AM | cirrhosis of liver | procedure are in the | | POC | | PDT | with ascites (HCC) | results section. | + +--------+ + + + | CBC (HEMOGRAM) ONLY | Routin | 08/02/2019 | | Results for this | | | e | 5:18 AM | | procedure are in the | | | | PDT | | results section. | + +--------+ + + + | COMPLETE METABOLIC | Routin | 08/02/2019 | | Results for this | | SET | e | 5:18 AM | | procedure are in the | | (NA,K,CL,CO2,BUN,CRE | | PDT | | results section. | | AT,GLUC,CA,AST,ALT,B | | | | | | KEV TOTAL,ALK | | | | | | PHOS,ALB,PROT TOTAL) | | | | | + +--------+ + + + | CBC ONLY | Routin | 08/02/2019 | | Results for this | | | e | 5:18 AM | | procedure are in the | | | | PDT | | results section. | + +--------+ + + + | COAGULOPATHY PANEL | Routin | 08/02/2019 | | Results for this | | (INR,APTT,FIBRINOGEN | e | 5:18 AM | | procedure are in the | | ) | | PDT | | results section. | + +--------+ + + + | CARDIOLOGY | | 08/02/2019 | | Results for this | | | | 12:00 AM | | procedure are in the | | | | PDT | | results section. | + +--------+ + + + | CAPILLARY BLOOD | Routin | 08/01/2019 | Alcoholic | Results for this | | GLUCOSE (NO CHG), | e | 11:38 PM | cirrhosis of liver | procedure are in the | | POC | | PDT | with ascites (HCC) | results section. | + +--------+ + + + | CAPILLARY BLOOD | Routin | 08/01/2019 | Alcoholic | Results for this | | GLUCOSE (NO CHG), | e | 8:08 PM | cirrhosis of liver | procedure are in the | | POC | | PDT | with ascites (HCC) | results section. | + +--------+ + + + | X-RAY ABD LTD | Routin | 08/01/2019 | | Results for this | | FEEDING TUBE EVAL | e | 6:28 PM | | procedure are in the | | PORTABLE | | PDT | | results section. | + +--------+ + + + | CAPILLARY BLOOD | Routin | 08/01/2019 | Alcoholic | Results for this | | GLUCOSE (NO CHG), | e | 5:20 PM | cirrhosis of liver | procedure are in the | | POC | | PDT | with ascites (HCC) | results section. | + +--------+ + + + | 12 LEAD ECG | Routin | 08/01/2019 | | Results for this | | | e | 2:25 PM | | procedure are in the | | | | PDT | | results section. | + +--------+ + + + | CAPILLARY BLOOD | Routin | 08/01/2019 | Alcoholic | Results for this | | GLUCOSE (NO CHG), | e | 12:13 PM | cirrhosis of liver | procedure are in the | | POC | | PDT | with ascites (HCC) | results section. | + +--------+ + + + | CAPILLARY BLOOD | Routin | 08/01/2019 | Alcoholic | Results for this | | GLUCOSE (NO CHG), | e | 8:27 AM | cirrhosis of liver | procedure are in the | | POC | | PDT | with ascites (HCC) | results section. | + +--------+ + + + | COMPLETE METABOLIC | Routin | 08/01/2019 | | Results for this | | SET | e | 7:56 AM | | procedure are in the | | (NA,K,CL,CO2,BUN,CRE | | PDT | | results section. | | AT,GLUC,CA,AST,ALT,B | | | | | | KEV TOTAL,ALK | | | | | | PHOS,ALB,PROT TOTAL) | | | | | + +--------+ + + + | MAGNESIUM, PLASMA | Routin | 08/01/2019 | | Results for this | | | e | 7:56 AM | | procedure are in the | | | | PDT | | results section. | + +--------+ + + + | CBC (HEMOGRAM) ONLY | Routin | 08/01/2019 | | Results for this | | | e | 7:55 AM | | procedure are in the | | | | PDT | | results section. | + +--------+ + + + | CBC ONLY | Routin | 08/01/2019 | | Results for this | | | e | 7:55 AM | | procedure are in the | | | | PDT | | results section. | + +--------+ + + + | COAGULOPATHY PANEL | Routin | 08/01/2019 | | Results for this | | (INR,APTT,FIBRINOGEN | e | 7:55 AM | | procedure are in the | | ) | | PDT | | results section. | + +--------+ + + + | CARDIOLOGY | | 08/01/2019 | | Results for this | | | | 12:00 AM | | procedure are in the | | | | PDT | | results section. | + +--------+ + + + | CAPILLARY BLOOD | Routin | 07/31/2019 | Alcoholic | Results for this | | GLUCOSE (NO CHG), | e | 9:43 PM | cirrhosis of liver | procedure are in the | | POC | | PDT | with ascites (HCC) | results section. | + +--------+ + + + | CAPILLARY BLOOD | Routin | 07/31/2019 | Alcoholic | Results for this | | GLUCOSE (NO CHG), | e | 5:43 PM | cirrhosis of liver | procedure are in the | | POC | | PDT | with ascites (HCC) | results section. | + +--------+ + + + | CAPILLARY BLOOD | Routin | 07/31/2019 | Alcoholic | Results for this | | GLUCOSE (NO CHG), | e | 11:59 AM | cirrhosis of liver | procedure are in the | | POC | | PDT | with ascites (HCC) | results section. | + +--------+ + + + | CAPILLARY BLOOD | Routin | 07/31/2019 | Alcoholic | Results for this | | GLUCOSE (NO CHG), | e | 8:37 AM | cirrhosis of liver | procedure are in the | | POC | | PDT | with ascites (HCC) | results section. | + +--------+ + + + | CBC (HEMOGRAM) ONLY | Routin | 07/31/2019 | | Results for this | | | e | 4:41 AM | | procedure are in the | | | | PDT | | results section. | + +--------+ + + + | COMPLETE METABOLIC | Routin | 07/31/2019 | | Results for this | | SET | e | 4:41 AM | | procedure are in the | | (NA,K,CL,CO2,BUN,CRE | | PDT | | results section. | | AT,GLUC,CA,AST,ALT,B | | | | | | KEV TOTAL,ALK | | | | | | PHOS,ALB,PROT TOTAL) | | | | | + +--------+ + + + | CBC ONLY | Routin | 07/31/2019 | | Results for this | | | e | 4:41 AM | | procedure are in the | | | | PDT | | results section. | + +--------+ + + + | COAGULOPATHY PANEL | Routin | 07/31/2019 | | Results for this | | (INR,APTT,FIBRINOGEN | e | 4:41 AM | | procedure are in the | | ) | | PDT | | results section. | + +--------+ + + + | CARDIOLOGY | | 07/31/2019 | | Results for this | | | | 12:00 AM | | procedure are in the | | | | PDT | | results section. | + +--------+ + + + | CAPILLARY BLOOD | Routin | 07/30/2019 | Alcoholic | Results for this | | GLUCOSE (NO CHG), | e | 9:58 PM | cirrhosis of liver | procedure are in the | | POC | | PDT | with ascites (HCC) | results section. | + +--------+ + + + | CAPILLARY BLOOD | Routin | 07/30/2019 | Alcoholic | Results for this | | GLUCOSE (NO CHG), | e | 5:02 PM | cirrhosis of liver | procedure are in the | | POC | | PDT | with ascites (HCC) | results section. | + +--------+ + + + | TRANSFUSE RED CELLS, | Routin | 07/30/2019 | | | | LEUKOREDUCED | e | 3:50 PM | | | | | | PDT | | | + +--------+ + + + | CAPILLARY BLOOD | Routin | 07/30/2019 | Alcoholic | Results for this | | GLUCOSE (NO CHG), | e | 12:08 PM | cirrhosis of liver | procedure are in the | | POC | | PDT | with ascites (HCC) | results section. | + +--------+ + + + | PRODUCT - RED CELLS | Routin | 07/30/2019 | | Results for this | | LEUKOREDUCED | e | 10:53 AM | | procedure are in the | | | | PDT | | results section. | + +--------+ + + + | CAPILLARY BLOOD | Routin | 07/30/2019 | Alcoholic | Results for this | | GLUCOSE (NO CHG), | e | 8:30 AM | cirrhosis of liver | procedure are in the | | POC | | PDT | with ascites (HCC) | results section. | + +--------+ + + + | DIFFERENTIAL, ADD ON | Routin | 07/30/2019 | | Results for this | | | e | 5:23 AM | | procedure are in the | | | | PDT | | results section. | + +--------+ + + + | DIFFERENTIAL, ADD ON | Routin | 07/30/2019 | | Results for this | | | e | 5:23 AM | | procedure are in the | | | | PDT | | results section. | + +--------+ + + + | CBC (HEMOGRAM) ONLY | Routin | 07/30/2019 | | Results for this | | | e | 5:23 AM | | procedure are in the | | | | PDT | | results section. | + +--------+ + + + | COMPLETE METABOLIC | Routin | 07/30/2019 | | Results for this | | SET | e | 5:23 AM | | procedure are in the | | (NA,K,CL,CO2,BUN,CRE | | PDT | | results section. | | AT,GLUC,CA,AST,ALT,B | | | | | | KEV TOTAL,ALK | | | | | | PHOS,ALB,PROT TOTAL) | | | | | + +--------+ + + + | CBC ONLY | Routin | 07/30/2019 | | Results for this | | | e | 5:23 AM | | procedure are in the | | | | PDT | | results section. | + +--------+ + + + | COAGULOPATHY PANEL | Routin | 07/30/2019 | | Results for this | | (INR,APTT,FIBRINOGEN | e | 5:23 AM | | procedure are in the | | ) | | PDT | | results section. | + +--------+ + + + | CARDIOLOGY | | 07/30/2019 | | Results for this | | | | 12:00 AM | | procedure are in the | | | | PDT | | results section. 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 | + +--------+ + + + | CAPILLARY BLOOD | Routin | 07/29/2019 | Alcoholic | Results for this | | GLUCOSE (NO CHG), | e | 6:25 PM | cirrhosis of liver | procedure are in the | | POC | | PDT | with ascites (HCC) | results section. | + +--------+ + + + | POTASSIUM TOTAL, | Routin | 07/29/2019 | | Results for this | | URINE | e | 3:11 PM | | procedure are in the | | | | PDT | | results section. | + +--------+ + + + | SODIUM TOTAL, URINE | Routin | 07/29/2019 | | Results for this | | | e | 3:11 PM | | procedure are in the | | | | PDT | | results section. | + +--------+ + + + | UA, DIPSTICK ONLY | Routin | 07/29/2019 | | Results for this | | | e | 3:11 PM | | procedure are in the | | | | PDT | | results section. | + +--------+ + + + | URINE, MICROSCOPIC | Routin | 07/29/2019 | | Results for this | | EXAM | e | 3:11 PM | | procedure are in the | | | | PDT | | results section. | + +--------+ + + + | OSMOLALITY, URINE | Routin | 07/29/2019 | | Results for this | | SPOT | e | 3:11 PM | | procedure are in the | | | | PDT | | results section. | + +--------+ + + + | CHLORIDE, URINE | Routin | 07/29/2019 | | Results for this | | | e | 3:11 PM | | procedure are in the | | | | PDT | | results section. | + +--------+ + + + | CAPILLARY BLOOD | Routin | 07/29/2019 | Alcoholic | Results for this | | GLUCOSE (NO CHG), | e | 12:29 PM | cirrhosis of liver | procedure are in the | | POC | | PDT | with ascites (HCC) | results section. | + +--------+ + + + | OSMOLALITY, PLASMA | Routin | 07/29/2019 | | Results for this | | | e | 10:23 AM | | procedure are in the | | | | PDT | | results section. | + +--------+ + + + | CAPILLARY BLOOD | Routin | 07/29/2019 | Alcoholic | Results for this | | GLUCOSE (NO CHG), | e | 9:24 AM | cirrhosis of liver | procedure are in the | | POC | | PDT | with ascites (HCC) | results section. | + +--------+ + + + | CBC (HEMOGRAM) ONLY | Routin | 07/29/2019 | | Results for this | | | e | 5:37 AM | | procedure are in the | | | | PDT | | results section. | + +--------+ + + + | COMPLETE METABOLIC | Routin | 07/29/2019 | | Results for this | | SET | e | 5:37 AM | | procedure are in the | | (NA,K,CL,CO2,BUN,CRE | | PDT | | results section. | | AT,GLUC,CA,AST,ALT,B | | | | | | KEV TOTAL,ALK | | | | | | PHOS,ALB,PROT TOTAL) | | | | | + +--------+ + + + | CBC ONLY | Routin | 07/29/2019 | | Results for this | | | e | 5:37 AM | | procedure are in the | | | | PDT | | results section. | + +--------+ + + + | COAGULOPATHY PANEL | Routin | 07/29/2019 | | Results for this | | (INR,APTT,FIBRINOGEN | e | 5:37 AM | | procedure are in the | | ) | | PDT | | results section. | + +--------+ + + + | CAPILLARY BLOOD | Routin | 07/29/2019 | Alcoholic | Results for this | | GLUCOSE (NO CHG), | e | 12:50 AM | cirrhosis of liver | procedure are in the | | POC | | PDT | with ascites (HCC) | results section. | + +--------+ + + + | CARDIOLOGY | | 07/29/2019 | | Results for this | | | | 12:00 AM | | procedure are in the | | | | PDT | | results section. | + +--------+ + + + | CAPILLARY BLOOD | Routin | 07/28/2019 | Alcoholic | Results for this | | GLUCOSE (NO CHG), | e | 11:54 PM | cirrhosis of liver | procedure are in the | | POC | | PDT | with ascites (HCC) | results section. | + +--------+ + + + | DIFFERENTIAL, ADD ON | Routin | 07/28/2019 | | Results for this | | | e | 10:50 PM | | procedure are in the | | | | PDT | | results section. | + +--------+ + + + | DIFFERENTIAL, ADD ON | Routin | 07/28/2019 | | Results for this | | | e | 10:50 PM | | procedure are in the | | | | PDT | | results section. | + +--------+ + + + | CBC (HEMOGRAM) ONLY | Routin | 07/28/2019 | | Results for this | | | e | 10:50 PM | | procedure are in the | | | | PDT | | results section. | + +--------+ + + + | CBC ONLY | Routin | 07/28/2019 | | Results for this | | | e | 10:50 PM | | procedure are in the | | | | PDT | | results section. | + +--------+ + + + | CAPILLARY BLOOD | Routin | 07/28/2019 | Alcoholic | Results for this | | GLUCOSE (NO CHG), | e | 9:06 PM | cirrhosis of liver | procedure are in the | | POC | | PDT | with ascites (HCC) | results section. | + +--------+ + + + | CAPILLARY BLOOD | Routin | 07/28/2019 | Alcoholic | Results for this | | GLUCOSE (NO CHG), | e | 1:40 PM | cirrhosis of liver | procedure are in the | | POC | | PDT | with ascites (HCC) | results section. | + +--------+ + + + | BLOOD GASES, VENOUS | Routin | 07/28/2019 | | Results for this | | - LAB | e | 1:29 PM | | procedure are in the | | | | PDT | | results section. | + +--------+ + + + | CAPILLARY BLOOD | Routin | 07/28/2019 | Alcoholic | Results for this | | GLUCOSE (NO CHG), | e | 9:40 AM | cirrhosis of liver | procedure are in the | | POC | | PDT | with ascites (HCC) | results section. | + +--------+ + + + | TRANSFUSE RED CELLS, | Routin | 07/28/2019 | | | | LEUKOREDUCED | e | 6:59 AM | | | | | | PDT | | | + +--------+ + + + | CBC (HEMOGRAM) ONLY | Routin | 07/28/2019 | | Results for this | | | e | 3:38 AM | | procedure are in the | | | | PDT | | results section. | + +--------+ + + + | COMPLETE METABOLIC | Routin | 07/28/2019 | | Results for this | | SET | e | 3:38 AM | | procedure are in the | | (NA,K,CL,CO2,BUN,CRE | | PDT | | results section. | | AT,GLUC,CA,AST,ALT,B | | | | | | KEV TOTAL,ALK | | | | | | PHOS,ALB,PROT TOTAL) | | | | | + +--------+ + + + | CBC ONLY | Routin | 07/28/2019 | | Results for this | | | e | 3:38 AM | | procedure are in the | | | | PDT | | results section. | + +--------+ + + + | COAGULOPATHY PANEL | Routin | 07/28/2019 | | Results for this | | (INR,APTT,FIBRINOGEN | e | 3:38 AM | | procedure are in the | | ) | | PDT | | results section. | + +--------+ + + + | CARDIOLOGY | | 07/28/2019 | | Results for this | | | | 12:00 AM | | procedure are in the | | | | PDT | | results section. | + +--------+ + + + | CARDIOLOGY | | 07/28/2019 | | Results for this | | | | 12:00 AM | | procedure are in the | | | | PDT | | results section. | + +--------+ + + + | URINE, MICROSCOPIC | Routin | 07/27/2019 | | Results for this | | EXAM | e | 9:35 PM | | procedure are in the | | | | PDT | | results section. | + +--------+ + + + | CAPILLARY BLOOD | Routin | 07/27/2019 | Alcoholic | Results for this | | GLUCOSE (NO CHG), | e | 9:25 PM | cirrhosis of liver | procedure are in the | | POC | | PDT | with ascites (HCC) | results section. | + +--------+ + + + | CBC (HEMOGRAM) ONLY | Routin | 07/27/2019 | | Results for this | | | e | 7:53 PM | | procedure are in the | | | | PDT | | results section. | + +--------+ + + + | CBC ONLY | Routin | 07/27/2019 | | Results for this | | | e | 7:53 PM | | procedure are in the | | | | PDT | | results section. | + +--------+ + + + | CAPILLARY BLOOD | Routin | 07/27/2019 | Alcoholic | Results for this | | GLUCOSE (NO CHG), | e | 6:33 PM | cirrhosis of liver | procedure are in the | | POC | | PDT | with ascites (HCC) | results section. | + +--------+ + + + | PRODUCT - RED CELLS | Routin | 07/27/2019 | | Results for this | | LEUKOREDUCED | e | 3:35 PM | | procedure are in the | | | | PDT | | results section. | + +--------+ + + + | CAPILLARY BLOOD | Routin | 07/27/2019 | Alcoholic | Results for this | | GLUCOSE (NO CHG), | e | 2:44 PM | cirrhosis of liver | procedure are in the | | POC | | PDT | with ascites (HCC) | results section. | + +--------+ + + + | CBC (HEMOGRAM) ONLY | Routin | 07/27/2019 | | Results for this | | | e | 2:34 PM | | procedure are in the | | | | PDT | | results section. | + +--------+ + + + | CBC ONLY | Routin | 07/27/2019 | | Results for this | | | e | 2:34 PM | | procedure are in the | | | | PDT | | results section. | + +--------+ + + + | X-RAY ABD LTD | Routin | 07/27/2019 | | Results for this | | FEEDING TUBE EVAL | e | 12:49 PM | | procedure are in the | | PORTABLE | | PDT | | results section. | + +--------+ + + + | ANTIBODY SCREEN | Routin | 07/27/2019 | | Results for this | | | e | 4:55 AM | | procedure are in the | | | | PDT | | results section. | + +--------+ + + + | TYPE AND SCREEN | Routin | 07/27/2019 | | Results for this | | | e | 4:55 AM | | procedure are in the | | | | PDT | | results section. | + +--------+ + + + | ABO & RH TYPE | Routin | 07/27/2019 | | Results for this | | | e | 4:55 AM | | procedure are in the | | | | PDT | | results section. | + +--------+ + + + | CBC (HEMOGRAM) ONLY | Routin | 07/27/2019 | | Results for this | | | e | 3:29 AM | | procedure are in the | | | | PDT | | results section. | + +--------+ + + + | COMPLETE METABOLIC | Routin | 07/27/2019 | | Results for this | | SET | e | 3:29 AM | | procedure are in the | | (NA,K,CL,CO2,BUN,CRE | | PDT | | results section. | | AT,GLUC,CA,AST,ALT,B | | | | | | KEV TOTAL,ALK | | | | | | PHOS,ALB,PROT TOTAL) | | | | | + +--------+ + + + | CBC ONLY | Routin | 07/27/2019 | | Results for this | | | e | 3:29 AM | | procedure are in the | | | | PDT | | results section. | + +--------+ + + + | COAGULOPATHY PANEL | Routin | 07/27/2019 | | Results for this | | (INR,APTT,FIBRINOGEN | e | 3:29 AM | | procedure are in the | | ) | | PDT | | results section. | + +--------+ + + + | CARDIOLOGY | | 07/27/2019 | | Results for this | | | | 12:00 AM | | procedure are in the | | | | PDT | | results section. | + +--------+ + + + | CAPILLARY BLOOD | Routin | 07/26/2019 | Alcoholic | Results for this | | GLUCOSE (NO CHG), | e | 9:52 PM | cirrhosis of liver | procedure are in the | | POC | | PDT | with ascites (HCC) | results section. | + +--------+ + + + | CAPILLARY BLOOD | Routin | 07/26/2019 | Alcoholic | Results for this | | GLUCOSE (NO CHG), | e | 5:55 PM | cirrhosis of liver | procedure are in the | | POC | | PDT | with ascites (HCC) | results section. | + +--------+ + + + | X-RAY CHEST 2 VIEW | Routin | 07/26/2019 | | Results for this | | | e | 1:29 PM | | procedure are in the | | | | PDT | | results section. | + +--------+ + + + | CAPILLARY BLOOD | Routin | 07/26/2019 | Alcoholic | Results for this | | GLUCOSE (NO CHG), | e | 12:00 PM | cirrhosis of liver | procedure are in the | | POC | | PDT | with ascites (HCC) | results section. | + +--------+ + + + | 12 LEAD ECG | Routin | 07/26/2019 | | Results for this | | | e | 11:27 AM | | procedure are in the | | | | PDT | | results section. | + +--------+ + + + | CULTURE, BLOOD BACTI | Routin | 07/26/2019 | | Results for this | | & YEAST [facility] | e | 10:51 AM | | procedure are in the | | | | PDT | | results section. | + +--------+ + + + | CULTURE, BLOOD BACTI | Routin | 07/26/2019 | | Results for this | | & YEAST [facility] | e | 10:51 AM | | procedure are in the | | | | PDT | | results section. | + +--------+ + + + | CULTURE, BLOOD BACTI | Routin | 07/26/2019 | | Results for this | | & YEAST | e | 10:51 AM | | procedure are in the | | | | PDT | | results section. | + +--------+ + + + | CULTURE, BLOOD BACTI | Routin | 07/26/2019 | | Results for this | | & YEAST | e | 10:51 AM | | procedure are in the | | | | PDT | | results section. | + +--------+ + + + | CAPILLARY BLOOD | Routin | 07/26/2019 | Alcoholic | Results for this | | GLUCOSE (NO CHG), | e | 8:24 AM | cirrhosis of liver | procedure are in the | | POC | | PDT | with ascites (HCC) | results section. | + +--------+ + + + | CBC (HEMOGRAM) ONLY | Routin | 07/26/2019 | | Results for this | | | e | 4:36 AM | | procedure are in the | | | | PDT | | results section. | + +--------+ + + + | COMPLETE METABOLIC | Routin | 07/26/2019 | | Results for this | | SET | e | 4:36 AM | | procedure are in the | | (NA,K,CL,CO2,BUN,CRE | | PDT | | results section. | | AT,GLUC,CA,AST,ALT,B | | | | | | KEV TOTAL,ALK | | | | | | PHOS,ALB,PROT TOTAL) | | | | | + +--------+ + + + | CBC ONLY | Routin | 07/26/2019 | | Results for this | | | e | 4:36 AM | | procedure are in the | | | | PDT | | results section. | + +--------+ + + + | COAGULOPATHY PANEL | Routin | 07/26/2019 | | Results for this | | (INR,APTT,FIBRINOGEN | e | 4:36 AM | | procedure are in the | | ) | | PDT | | results section. | + +--------+ + + + | MAGNESIUM, PLASMA | Routin | 07/26/2019 | | Results for this | | | e | 4:36 AM | | procedure are in the | | | | PDT | | results section. | + +--------+ + + + | CARDIOLOGY | | 07/26/2019 | | Results for this | | | | 12:00 AM | | procedure are in the | | | | PDT | | results section. | + +--------+ + + + | CARDIOLOGY | | 07/26/2019 | | Results for this | | | | 12:00 AM | | procedure are in the | | | | PDT | | results section. | + +--------+ + + + | CAPILLARY BLOOD | Routin | 07/25/2019 | Alcoholic | Results for this | | GLUCOSE (NO CHG), | e | 9:44 PM | cirrhosis of liver | procedure are in the | | POC | | PDT | with ascites (HCC) | results section. | + +--------+ + + + | CAPILLARY BLOOD | Routin | 07/25/2019 | Alcoholic | Results for this | | GLUCOSE (NO CHG), | e | 7:59 PM | cirrhosis of liver | procedure are in the | | POC | | PDT | with ascites (HCC) | results section. | + +--------+ + + + | CAPILLARY BLOOD | Routin | 07/25/2019 | Alcoholic | Results for this | | GLUCOSE (NO CHG), | e | 5:40 PM | cirrhosis of liver | procedure are in the | | POC | | PDT | with ascites (HCC) | results section. | + +--------+ + + + | URINE, MICROSCOPIC | Routin | 07/25/2019 | | Results for this | | EXAM | e | 5:25 PM | | procedure are in the | | | | PDT | | results section. | + +--------+ + + + | CAPILLARY BLOOD | Routin | 07/25/2019 | Alcoholic | Results for this | | GLUCOSE (NO CHG), | e | 5:14 PM | cirrhosis of liver | procedure are in the | | POC | | PDT | with ascites (HCC) | results section. | + +--------+ + + + | CBC (HEMOGRAM) ONLY | Routin | 07/25/2019 | | Results for this | | | e | 1:55 PM | | procedure are in the | | | | PDT | | results section. | + +--------+ + + + | CBC ONLY | Routin | 07/25/2019 | | Results for this | | | e | 1:55 PM | | procedure are in the | | | | PDT | | results section. | + +--------+ + + + | CAPILLARY BLOOD | Routin | 07/25/2019 | Alcoholic | Results for this | | GLUCOSE (NO CHG), | e | 1:06 PM | cirrhosis of liver | procedure are in the | | POC | | PDT | with ascites (HCC) | results section. | + +--------+ + + + | CAPILLARY BLOOD | Routin | 07/25/2019 | Alcoholic | Results for this | | GLUCOSE (NO CHG), | e | 8:32 AM | cirrhosis of liver | procedure are in the | | POC | | PDT | with ascites (HCC) | results section. | + +--------+ + + + | CBC (HEMOGRAM) ONLY | Routin | 07/25/2019 | | Results for this | | | e | 5:25 AM | | procedure are in the | | | | PDT | | results section. | + +--------+ + + + | COMPLETE METABOLIC | Routin | 07/25/2019 | | Results for this | | SET | e | 5:25 AM | | procedure are in the | | (NA,K,CL,CO2,BUN,CRE | | PDT | | results section. | | AT,GLUC,CA,AST,ALT,B | | | | | | KEV TOTAL,ALK | | | | | | PHOS,ALB,PROT TOTAL) | | | | | + +--------+ + + + | CBC ONLY | Routin | 07/25/2019 | | Results for this | | | e | 5:25 AM | | procedure are in the | | | | PDT | | results section. | + +--------+ + + + | COAGULOPATHY PANEL | Routin | 07/25/2019 | | Results for this | | (INR,APTT,FIBRINOGEN | e | 5:25 AM | | procedure are in the | | ) | | PDT | | results section. | + +--------+ + + + | CARDIOLOGY | | 07/25/2019 | | Results for this | | | | 12:00 AM | | procedure are in the | | | | PDT | | results section. | + +--------+ + + + | CARDIOLOGY | | 07/25/2019 | | Results for this | | | | 12:00 AM | | procedure are in the | | | | PDT | | results section. | + +--------+ + + + | CARDIOLOGY | | 07/25/2019 | | Results for this | | | | 12:00 AM | | procedure are in the | | | | PDT | | results section. | + +--------+ + + + | CARDIOLOGY | | 07/25/2019 | | Results for this | | | | 12:00 AM | | procedure are in the | | | | PDT | | results section. | + +--------+ + + + | CAPILLARY BLOOD | Routin | 07/24/2019 | Alcoholic | Results for this | | GLUCOSE (NO CHG), | e | 10:05 PM | cirrhosis of liver | procedure are in the | | POC | | PDT | with ascites (HCC) | results section. | + +--------+ + + + | CAPILLARY BLOOD | Routin | 07/24/2019 | Alcoholic | Results for this | | GLUCOSE (NO CHG), | e | 6:42 PM | cirrhosis of liver | procedure are in the | | POC | | PDT | with ascites (HCC) | results section. | + +--------+ + + + | CAPILLARY BLOOD | Routin | 07/24/2019 | Alcoholic | Results for this | | GLUCOSE (NO CHG), | e | 2:07 PM | cirrhosis of liver | procedure are in the | | POC | | PDT | with ascites (HCC) | results section. | + +--------+ + + + | CAPILLARY BLOOD | Routin | 07/24/2019 | Alcoholic | Results for this | | GLUCOSE (NO CHG), | e | 7:33 AM | cirrhosis of liver | procedure are in the | | POC | | PDT | with ascites (HCC) | results section. | + +--------+ + + + | CBC (HEMOGRAM) ONLY | Routin | 07/24/2019 | | Results for this | | | e | 6:04 AM | | procedure are in the | | | | PDT | | results section. | + +--------+ + + + | COMPLETE METABOLIC | Routin | 07/24/2019 | | Results for this | | SET | e | 6:04 AM | | procedure are in the | | (NA,K,CL,CO2,BUN,CRE | | PDT | | results section. | | AT,GLUC,CA,AST,ALT,B | | | | | | KEV TOTAL,ALK | | | | | | PHOS,ALB,PROT TOTAL) | | | | | + +--------+ + + + | CBC ONLY | Routin | 07/24/2019 | | Results for this | | | e | 6:04 AM | | procedure are in the | | | | PDT | | results section. | + +--------+ + + + | COAGULOPATHY PANEL | Routin | 07/24/2019 | | Results for this | | (INR,APTT,FIBRINOGEN | e | 6:04 AM | | procedure are in the | | ) | | PDT | | results section. | + +--------+ + + + | CAPILLARY BLOOD | Routin | 07/23/2019 | Alcoholic | Results for this | | GLUCOSE (NO CHG), | e | 11:32 PM | cirrhosis of liver | procedure are in the | | POC | | PDT | with ascites (HCC) | results section. | + +--------+ + + + | CAPILLARY BLOOD | Routin | 07/23/2019 | Alcoholic | Results for this | | GLUCOSE (NO CHG), | e | 7:43 PM | cirrhosis of liver | procedure are in the | | POC | | PDT | with ascites (HCC) | results section. | + +--------+ + + + | CBC (HEMOGRAM) ONLY | Routin | 07/23/2019 | | Results for this | | | e | 4:23 PM | | procedure are in the | | | | PDT | | results section. | + +--------+ + + + | CBC ONLY | Routin | 07/23/2019 | | Results for this | | | e | 4:23 PM | | procedure are in the | | | | PDT | | results section. | + +--------+ + + + | CAPILLARY BLOOD | Routin | 07/23/2019 | Alcoholic | Results for this | | GLUCOSE (NO CHG), | e | 1:26 PM | cirrhosis of liver | procedure are in the | | POC | | PDT | with ascites (HCC) | results section. | + +--------+ + + + | 12 LEAD ECG | Routin | 07/23/2019 | | Results for this | | | e | 9:08 AM | | procedure are in the | | | | PDT | | results section. | + +--------+ + + + | CAPILLARY BLOOD | Routin | 07/23/2019 | Alcoholic | Results for this | | GLUCOSE (NO CHG), | e | 8:01 AM | cirrhosis of liver | procedure are in the | | POC | | PDT | with ascites (HCC) | results section. | + +--------+ + + + | CBC (HEMOGRAM) ONLY | Routin | 07/23/2019 | | Results for this | | | e | 6:11 AM | | procedure are in the | | | | PDT | | results section. | + +--------+ + + + | COMPLETE METABOLIC | Routin | 07/23/2019 | | Results for this | | SET | e | 6:11 AM | | procedure are in the | | (NA,K,CL,CO2,BUN,CRE | | PDT | | results section. | | AT,GLUC,CA,AST,ALT,B | | | | | | KEV TOTAL,ALK | | | | | | PHOS,ALB,PROT TOTAL) | | | | | + +--------+ + + + | CBC ONLY | Routin | 07/23/2019 | | Results for this | | | e | 6:11 AM | | procedure are in the | | | | PDT | | results section. | + +--------+ + + + | COAGULOPATHY PANEL | Routin | 07/23/2019 | | Results for this | | (INR,APTT,FIBRINOGEN | e | 6:11 AM | | procedure are in the | | ) | | PDT | | results section. | + +--------+ + + + | CARDIOLOGY | | 07/23/2019 | | Results for this | | | | 12:00 AM | | procedure are in the | | | | PDT | | results section. | + +--------+ + + + | CARDIOLOGY | | 07/23/2019 | | Results for this | | | | 12:00 AM | | procedure are in the | | | | PDT | | results section. | + +--------+ + + + | CARDIOLOGY | | 07/23/2019 | | Results for this | | | | 12:00 AM | | procedure are in the | | | | PDT | | results section. | + +--------+ + + + | CARDIOLOGY | | 07/23/2019 | | Results for this | | | | 12:00 AM | | procedure are in the | | | | PDT | | results section. | + +--------+ + + + | CARDIOLOGY | | 07/23/2019 | | Results for this | | | | 12:00 AM | | procedure are in the | | | | PDT | | results section. | + +--------+ + + + | CAPILLARY BLOOD | Routin | 07/22/2019 | Alcoholic | Results for this | | GLUCOSE (NO CHG), | e | 11:25 PM | cirrhosis of liver | procedure are in the | | POC | | PDT | with ascites (HCC) | results section. | + +--------+ + + + | CAPILLARY BLOOD | Routin | 07/22/2019 | Alcoholic | Results for this | | GLUCOSE (NO CHG), | e | 10:23 PM | cirrhosis of liver | procedure are in the | | POC | | PDT | with ascites (HCC) | results section. | + +--------+ + + + | CAPILLARY BLOOD | Routin | 07/22/2019 | Alcoholic | Results for this | | GLUCOSE (NO CHG), | e | 7:12 PM | cirrhosis of liver | procedure are in the | | POC | | PDT | with ascites (HCC) | results section. | + +--------+ + + + | CAPILLARY BLOOD | Routin | 07/22/2019 | Alcoholic | Results for this | | GLUCOSE (NO CHG), | e | 12:04 PM | cirrhosis of liver | procedure are in the | | POC | | PDT | with ascites (HCC) | results section. | + +--------+ + + + | CAPILLARY BLOOD | Routin | 07/22/2019 | Alcoholic | Results for this | | GLUCOSE (NO CHG), | e | 8:36 AM | cirrhosis of liver | procedure are in the | | POC | | PDT | with ascites (HCC) | results section. | + +--------+ + + + | CBC (HEMOGRAM) ONLY | Urgent | 07/22/2019 | | Results for this | | | | 5:29 AM | | procedure are in the | | | | PDT | | results section. | + +--------+ + + + | BASIC METABOLIC SET | Urgent | 07/22/2019 | | Results for this | | (NA, K, CL, TCO2, | | 5:29 AM | | procedure are in the | | BUN, CR, GLU, CA) | | PDT | | results section. | + +--------+ + + + | CBC ONLY | Urgent | 07/22/2019 | | Results for this | | | | 5:29 AM | | procedure are in the | | | | PDT | | results section. | + +--------+ + + + | MAGNESIUM, PLASMA | Urgent | 07/22/2019 | | Results for this | | | | 5:29 AM | | procedure are in the | | | | PDT | | results section. | + +--------+ + + + | CARDIOLOGY | | 07/22/2019 | | Results for this | | | | 12:00 AM | | procedure are in the | | | | PDT | | results section. | + +--------+ + + + | CAPILLARY BLOOD | Routin | 07/21/2019 | Alcoholic | Results for this | | GLUCOSE (NO CHG), | e | 9:18 PM | cirrhosis of liver | procedure are in the | | POC | | PDT | with ascites (HCC) | results section. | + +--------+ + + + | CBC (HEMOGRAM) ONLY | Urgent | 07/21/2019 | | Results for this | | | | 4:43 PM | | procedure are in the | | | | PDT | | results section. | + +--------+ + + + | CBC ONLY | Urgent | 07/21/2019 | | Results for this | | | | 4:43 PM | | procedure are in the | | | | PDT | | results section. | + +--------+ + + + | CAPILLARY BLOOD | Routin | 07/21/2019 | Alcoholic | Results for this | | GLUCOSE (NO CHG), | e | 4:10 PM | cirrhosis of liver | procedure are in the | | POC | | PDT | with ascites (HCC) | results section. | + +--------+ + + + | CAPILLARY BLOOD | Routin | 07/21/2019 | Alcoholic | Results for this | | GLUCOSE (NO CHG), | e | 11:56 AM | cirrhosis of liver | procedure are in the | | POC | | PDT | with ascites (HCC) | results section. 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 | + +--------+ + + + | CBC AND AUTO DIFF | Urgent | 07/21/2019 | | Results for this | | | | 3:44 AM | | procedure are in the | | | | PDT | | results section. | + +--------+ + + + | INR | Urgent | 07/21/2019 | | Results for this | | | | 3:44 AM | | procedure are in the | | | | PDT | | results section. | + +--------+ + + + | CBC, WITH | Urgent | 07/21/2019 | | Results for this | | DIFFERENTIAL | | 3:44 AM | | procedure are in the | | | | PDT | | results section. | + +--------+ + + + | COMPLETE METABOLIC | Urgent | 07/21/2019 | | Results for this | | SET | | 3:44 AM | | procedure are in the | | (NA,K,CL,CO2,BUN,CRE | | PDT | | results section. | | AT,GLUC,CA,AST,ALT,B | | | | | | KEV TOTAL,ALK | | | | | | PHOS,ALB,PROT TOTAL) | | | | | + +--------+ + + + | PHOSPHORUS, PLASMA | Urgent | 07/21/2019 | | Results for this | | | | 3:44 AM | | procedure are in the | | | | PDT | | results section. | + +--------+ + + + | MAGNESIUM, PLASMA | Urgent | 07/21/2019 | | Results for this | | | | 3:44 AM | | procedure are in the | | | | PDT | | results section. | + +--------+ + + + | CAPILLARY BLOOD | Routin | 07/20/2019 | Alcoholic | Results for this | | GLUCOSE (NO CHG), | e | 8:48 PM | cirrhosis of liver | procedure are in the | | POC | | PDT | with ascites (HCC) | results section. | + +--------+ + + + | CAPILLARY BLOOD | Routin | 07/20/2019 | Alcoholic | Results for this | | GLUCOSE (NO CHG), | e | 5:48 PM | cirrhosis of liver | procedure are in the | | POC | | PDT | with ascites (HCC) | results section. | + +--------+ + + + | CULTURE, BLOOD BACTI | Urgent | 07/20/2019 | | Results for this | | & YEAST [facility] | | 4:30 PM | | procedure are in the | | | | PDT | | results section. | + +--------+ + + + | CULTURE, BLOOD BACTI | Urgent | 07/20/2019 | | Results for this | | & YEAST | | 4:30 PM | | procedure are in the | | | | PDT | | results section. | + +--------+ + + + | X-RAY PORTABLE CHEST | Urgent | 07/20/2019 | | Results for this | | 1 VIEW | | 3:46 PM | | procedure are in the | | | | PDT | | results section. | + +--------+ + + + | CULTURE, BLOOD BACTI | Urgent | 07/20/2019 | | Results for this | | & YEAST [facility] | | 3:40 PM | | procedure are in the | | | | PDT | | results section. | + +--------+ + + + | CULTURE, BLOOD BACTI | Urgent | 07/20/2019 | | Results for this | | & YEAST | | 3:40 PM | | procedure are in the | | | | PDT | | results section. | + +--------+ + + + | CAPILLARY BLOOD | Routin | 07/20/2019 | Alcoholic | Results for this | | GLUCOSE (NO CHG), | e | 3:38 PM | cirrhosis of liver | procedure are in the | | POC | | PDT | with ascites (HCC) | results section. | + +--------+ + + + | CBC (HEMOGRAM) ONLY | Urgent | 07/20/2019 | | Results for this | | | | 3:30 PM | | procedure are in the | | | | PDT | | results section. | + +--------+ + + + | CBC ONLY | Urgent | 07/20/2019 | | Results for this | | | | 3:30 PM | | procedure are in the | | | | PDT | | results section. | + +--------+ + + + | TRANSFUSE RED CELLS, | Routin | 07/20/2019 | | | | LEUKOREDUCED | e | 2:08 PM | | | | | | PDT | | | + +--------+ + + + | PRODUCT - RED CELLS | Routin | 07/20/2019 | | Results for this | | LEUKOREDUCED | e | 11:44 AM | | procedure are in the | | | | PDT | | results section. | + +--------+ + + + | CBC (HEMOGRAM) ONLY | Urgent | 07/20/2019 | | Results for this | | | | 11:03 AM | | procedure are in the | | | | PDT | | results section. | + +--------+ + + + | CBC ONLY | Urgent | 07/20/2019 | | Results for this | | | | 11:03 AM | | procedure are in the | | | | PDT | | results section. | + +--------+ + + + | PRODUCT - RED CELLS | Routin | 07/20/2019 | | Results for this | | LEUKOREDUCED | e | 10:29 AM | | procedure are in the | | | | PDT | | results section. | + +--------+ + + + | CAPILLARY BLOOD | Routin | 07/20/2019 | Alcoholic | Results for this | | GLUCOSE (NO CHG), | e | 10:09 AM | cirrhosis of liver | procedure are in the | | POC | | PDT | with ascites (HCC) | results section. | + +--------+ + + + | CAPILLARY BLOOD | Routin | 07/20/2019 | Alcoholic | Results for this | | GLUCOSE (NO CHG), | e | 10:07 AM | cirrhosis of liver | procedure are in the | | POC | | PDT | with ascites (HCC) | results section. | + +--------+ + + + | TRANSFUSE RED CELLS, | Routin | 07/20/2019 | | | | LEUKOREDUCED | e | 9:13 AM | | | | | | PDT | | | + +--------+ + + + | 12 LEAD ECG | Routin | 07/20/2019 | | Results for this | | | e | 8:26 AM | | procedure are in the | | | | PDT | | results section. | + +--------+ + + + | TROPONIN I, PLASMA | Urgent | 07/20/2019 | | Results for this | | | | 7:00 AM | | procedure are in the | | | | PDT | | results section. | + +--------+ + + + | PRODUCT - RED CELLS | Routin | 07/20/2019 | | Results for this | | LEUKOREDUCED | e | 6:30 AM | | procedure are in the | | | | PDT | | results section. | + +--------+ + + + | CBC (HEMOGRAM) ONLY | Urgent | 07/20/2019 | | Results for this | | | | 5:24 AM | | procedure are in the | | | | PDT | | results section. | + +--------+ + + + | BASIC METABOLIC SET | Urgent | 07/20/2019 | | Results for this | | (NA, K, CL, TCO2, | | 5:24 AM | | procedure are in the | | BUN, CR, GLU, CA) | | PDT | | results section. | + +--------+ + + + | CBC ONLY | Urgent | 07/20/2019 | | Results for this | | | | 5:24 AM | | procedure are in the | | | | PDT | | results section. | + +--------+ + + + | MAGNESIUM, PLASMA | Urgent | 07/20/2019 | | Results for this | | | | 5:24 AM | | procedure are in the | | | | PDT | | results section. | + +--------+ + + + | 12 LEAD ECG | Routin | 07/20/2019 | | Results for this | | | e | 12:32 AM | | procedure are in the | | | | PDT | | results section. | + +--------+ + + + | CAPILLARY BLOOD | Routin | 07/19/2019 | Alcoholic | Results for this | | GLUCOSE (NO CHG), | e | 9:33 PM | cirrhosis of liver | procedure are in the | | POC | | PDT | with ascites (HCC) | results section. | + +--------+ + + + | BASIC METABOLIC SET | Urgent | 07/19/2019 | | Results for this | | (NA, K, CL, TCO2, | | 8:22 PM | | procedure are in the | | BUN, CR, GLU, CA) | | PDT | | results section. | + +--------+ + + + | CAPILLARY BLOOD | Routin | 07/19/2019 | Alcoholic | Results for this | | GLUCOSE (NO CHG), | e | 6:58 PM | cirrhosis of liver | procedure are in the | | POC | | PDT | with ascites (HCC) | results section. | + +--------+ + + + | CAPILLARY BLOOD | Routin | 07/19/2019 | Alcoholic | Results for this | | GLUCOSE (NO CHG), | e | 5:52 PM | cirrhosis of liver | procedure are in the | | POC | | PDT | with ascites (HCC) | results section. | + +--------+ + + + | SODIUM TOTAL, URINE | Routin | 07/19/2019 | | Results for this | | | e | 5:22 PM | | procedure are in the | | | | PDT | | results section. | + +--------+ + + + | UREA NITROGEN, URINE | Routin | 07/19/2019 | | Results for this | | | e | 5:22 PM | | procedure are in the | | | | PDT | | results section. | + +--------+ + + + | CREATININE, URINE | Routin | 07/19/2019 | | Results for this | | | e | 5:22 PM | | procedure are in the | | | | PDT | | results section. | + +--------+ + + + | CBC (HEMOGRAM) ONLY | Urgent | 07/19/2019 | | Results for this | | | | 1:56 PM | | procedure are in the | | | | PDT | | results section. | + +--------+ + + + | BASIC METABOLIC SET | Urgent | 07/19/2019 | | Results for this | | (NA, K, CL, TCO2, | | 1:56 PM | | procedure are in the | | BUN, CR, GLU, CA) | | PDT | | results section. | + +--------+ + + + | CBC ONLY | Urgent | 07/19/2019 | | Results for this | | | | 1:56 PM | | procedure are in the | | | | PDT | | results section. | + +--------+ + + + | MAGNESIUM, PLASMA | Urgent | 07/19/2019 | | Results for this | | | | 1:56 PM | | procedure are in the | | | | PDT | | results section. | + +--------+ + + + | CAPILLARY BLOOD | Routin | 07/19/2019 | Alcoholic | Results for this | | GLUCOSE (NO CHG), | e | 1:12 PM | cirrhosis of liver | procedure are in the | | POC | | PDT | with ascites (HCC) | results section. | + +--------+ + + + | CAPILLARY BLOOD | Routin | 07/19/2019 | Alcoholic | Results for this | | GLUCOSE (NO CHG), | e | 12:04 PM | cirrhosis of liver | procedure are in the | | POC | | PDT | with ascites (HCC) | results section. | + +--------+ + + + | URINE, MICROSCOPIC | Routin | 07/19/2019 | | Results for this | | EXAM | e | 10:43 AM | | procedure are in the | | | | PDT | | results section. | + +--------+ + + + | URINE SCREEN FOR | Routin | 07/19/2019 | | Results for this | | CULTURE | e | 10:43 AM | | procedure are in the | | | | PDT | | results section. | + +--------+ + + + | VANCOMYCIN, TROUGH | Urgent | 07/19/2019 | | Results for this | | | | 10:34 AM | | procedure are in the | | | | PDT | | results section. | + +--------+ + + + | CAPILLARY BLOOD | Routin | 07/19/2019 | Alcoholic | Results for this | | GLUCOSE (NO CHG), | e | 9:39 AM | cirrhosis of liver | procedure are in the | | POC | | PDT | with ascites (HCC) | results section. | + +--------+ + + + | CAPILLARY BLOOD | Routin | 07/19/2019 | Alcoholic | Results for this | | GLUCOSE (NO CHG), | e | 8:53 AM | cirrhosis of liver | procedure are in the | | POC | | PDT | with ascites (HCC) | results section. | + +--------+ + + + | CAPILLARY BLOOD | Routin | 07/19/2019 | Alcoholic | Results for this | | GLUCOSE (NO CHG), | e | 8:11 AM | cirrhosis of liver | procedure are in the | | POC | | PDT | with ascites (HCC) | results section. | + +--------+ + + + | CAPILLARY BLOOD | Routin | 07/19/2019 | Alcoholic | Results for this | | GLUCOSE (NO CHG), | e | 7:07 AM | cirrhosis of liver | procedure are in the | | POC | | PDT | with ascites (HCC) | results section. | + +--------+ + + + | CBC (HEMOGRAM) ONLY | Urgent | 07/19/2019 | | Results for this | | | | 5:52 AM | | procedure are in the | | | | PDT | | results section. | + +--------+ + + + | CBC ONLY | Urgent | 07/19/2019 | | Results for this | | | | 5:52 AM | | procedure are in the | | | | PDT | | results section. | + +--------+ + + + | CAPILLARY BLOOD | Routin | 07/19/2019 | Alcoholic | Results for this | | GLUCOSE (NO CHG), | e | 5:49 AM | cirrhosis of liver | procedure are in the | | POC | | PDT | with ascites (HCC) | results section. | + +--------+ + + + | CAPILLARY BLOOD | Routin | 07/19/2019 | Alcoholic | Results for this | | GLUCOSE (NO CHG), | e | 4:39 AM | cirrhosis of liver | procedure are in the | | POC | | PDT | with ascites (HCC) | results section. | + +--------+ + + + | CAPILLARY BLOOD | Routin | 07/19/2019 | Alcoholic | Results for this | | GLUCOSE (NO CHG), | e | 3:03 AM | cirrhosis of liver | procedure are in the | | POC | | PDT | with ascites (HCC) | results section. | + +--------+ + + + | CAPILLARY BLOOD | Routin | 07/19/2019 | Alcoholic | Results for this | | GLUCOSE (NO CHG), | e | 2:07 AM | cirrhosis of liver | procedure are in the | | POC | | PDT | with ascites (HCC) | results section. | + +--------+ + + + | CAPILLARY BLOOD | Routin | 07/19/2019 | Alcoholic | Results for this | | GLUCOSE (NO CHG), | e | 1:20 AM | cirrhosis of liver | procedure are in the | | POC | | PDT | with ascites (HCC) | results section. | + +--------+ + + + | TROPONIN I, PLASMA | Urgent | 07/19/2019 | | Results for this | | | | 12:13 AM | | procedure are in the | | | | PDT | | results section. | + +--------+ + + + | BASIC METABOLIC SET | Urgent | 07/19/2019 | | Results for this | | (NA, K, CL, TCO2, | | 12:13 AM | | procedure are in the | | BUN, CR, GLU, CA) | | PDT | | results section. | + +--------+ + + + | PHOSPHORUS, PLASMA | Routin | 07/19/2019 | | Results for this | | | e | 12:13 AM | | procedure are in the | | | | PDT | | results section. | + +--------+ + + + | MAGNESIUM, PLASMA | Urgent | 07/19/2019 | | Results for this | | | | 12:13 AM | | procedure are in the | | | | PDT | | results section. | + +--------+ + + + | CBC (HEMOGRAM) ONLY | Urgent | 07/19/2019 | | Results for this | | | | 12:01 AM | | procedure are in the | | | | PDT | | results section. | + +--------+ + + + | CBC ONLY | Urgent | 07/19/2019 | | Results for this | | | | 12:01 AM | | procedure are in the | | | | PDT | | results section. | + +--------+ + + + | CAPILLARY BLOOD | Routin | 07/18/2019 | Alcoholic | Results for this | | GLUCOSE (NO CHG), | e | 11:17 PM | cirrhosis of liver | procedure are in the | | POC | | PDT | with ascites (HCC) | results section. | + +--------+ + + + | CAPILLARY BLOOD | Routin | 07/18/2019 | Alcoholic | Results for this | | GLUCOSE (NO CHG), | e | 9:07 PM | cirrhosis of liver | procedure are in the | | POC | | PDT | with ascites (HCC) | results section. | + +--------+ + + + | CAPILLARY BLOOD | Routin | 07/18/2019 | Alcoholic | Results for this | | GLUCOSE (NO CHG), | e | 7:02 PM | cirrhosis of liver | procedure are in the | | POC | | PDT | with ascites (HCC) | results section. | + +--------+ + + + | CBC (HEMOGRAM) ONLY | Urgent | 07/18/2019 | | Results for this | | | | 6:03 PM | | procedure are in the | | | | PDT | | results section. | + +--------+ + + + | TROPONIN I, PLASMA | Urgent | 07/18/2019 | | Results for this | | | | 6:03 PM | | procedure are in the | | | | PDT | | results section. | + +--------+ + + + | CBC ONLY | Urgent | 07/18/2019 | | Results for this | | | | 6:03 PM | | procedure are in the | | | | PDT | | results section. | + +--------+ + + + | CAPILLARY BLOOD | Routin | 07/18/2019 | Alcoholic | Results for this | | GLUCOSE (NO CHG), | e | 5:58 PM | cirrhosis of liver | procedure are in the | | POC | | PDT | with ascites (HCC) | results section. | + +--------+ + + + | CAPILLARY BLOOD | Routin | 07/18/2019 | Alcoholic | Results for this | | GLUCOSE (NO CHG), | e | 4:53 PM | cirrhosis of liver | procedure are in the | | POC | | PDT | with ascites (HCC) | results section. | + +--------+ + + + | CAPILLARY BLOOD | Routin | 07/18/2019 | Alcoholic | Results for this | | GLUCOSE (NO CHG), | e | 3:47 PM | cirrhosis of liver | procedure are in the | | POC | | PDT | with ascites (HCC) | results section. | + +--------+ + + + | PRODUCT - RED CELLS | Routin | 07/18/2019 | | Results for this | | LEUKOREDUCED | e | 2:47 PM | | procedure are in the | | | | PDT | | results section. | + +--------+ + + + | TRANSTHORACIC | Routin | 07/18/2019 | | Results for this | | ECHOCARDIOGRAM, | e | 2:29 PM | | procedure are in the | | ADULT | | PDT | | results section. | + +--------+ + + + | CAPILLARY BLOOD | Routin | 07/18/2019 | Alcoholic | Results for this | | GLUCOSE (NO CHG), | e | 2:15 PM | cirrhosis of liver | procedure are in the | | POC | | PDT | with ascites (HCC) | results section. | + +--------+ + + + | CAPILLARY BLOOD | Routin | 07/18/2019 | Alcoholic | Results for this | | GLUCOSE (NO CHG), | e | 1:18 PM | cirrhosis of liver | procedure are in the | | POC | | PDT | with ascites (HCC) | results section. | + +--------+ + + + | CBC (HEMOGRAM) ONLY | Urgent | 07/18/2019 | | Results for this | | | | 1:17 PM | | procedure are in the | | | | PDT | | results section. | + +--------+ + + + | TROPONIN I, PLASMA | Urgent | 07/18/2019 | | Results for this | | | | 1:17 PM | | procedure are in the | | | | PDT | | results section. | + +--------+ + + + | CBC ONLY | Urgent | 07/18/2019 | | Results for this | | | | 1:17 PM | | procedure are in the | | | | PDT | | results section. | + +--------+ + + + | CAPILLARY BLOOD | Routin | 07/18/2019 | Alcoholic | Results for this | | GLUCOSE (NO CHG), | e | 12:16 PM | cirrhosis of liver | procedure are in the | | POC | | PDT | with ascites (HCC) | results section. | + +--------+ + + + | CAPILLARY BLOOD | Routin | 07/18/2019 | Alcoholic | Results for this | | GLUCOSE (NO CHG), | e | 11:09 AM | cirrhosis of liver | procedure are in the | | POC | | PDT | with ascites (HCC) | results section. | + +--------+ + + + | CAPILLARY BLOOD | Routin | 07/18/2019 | Alcoholic | Results for this | | GLUCOSE (NO CHG), | e | 10:05 AM | cirrhosis of liver | procedure are in the | | POC | | PDT | with ascites (HCC) | results section. | + +--------+ + + + | CELL COUNT, SYN FL | Routin | 07/18/2019 | | Results for this | | | e | 9:44 AM | | procedure are in the | | | | PDT | | results section. | + +--------+ + + + | DIFFERENTIAL, SYN FL | Routin | 07/18/2019 | | Results for this | | | e | 9:44 AM | | procedure are in the | | | | PDT | | results section. | + +--------+ + + + | SYNOVIAL FLUID CELL | Routin | 07/18/2019 | | Results for this | | COUNT / DIFF | e | 9:44 AM | | procedure are in the | | | | PDT | | results section. | + +--------+ + + + | CULTURE, FUNGAL | Routin | 07/18/2019 | | Results for this | | EXCEPT BLOOD, SKIN, | e | 9:43 AM | | procedure are in the | | HAIR, NAIL | | PDT | | results section. | + +--------+ + + + | SYNOVIAL FLUID, | Routin | 07/18/2019 | | Results for this | | CRYSTALS | e | 9:43 AM | | procedure are in the | | | | PDT | | results section. | + +--------+ + + + | GRAM SMEAR ONLY, | Routin | 07/18/2019 | | Results for this | | STAT | e | 9:43 AM | | procedure are in the | | | | PDT | | results section. | + +--------+ + + + | NT-PRO BNP | Urgent | 07/18/2019 | | Results for this | | | | 8:58 AM | | procedure are in the | | | | PDT | | results section. | + +--------+ + + + | CBC AND AUTO DIFF | Urgent | 07/18/2019 | | Results for this | | | | 8:58 AM | | procedure are in the | | | | PDT | | results section. | + +--------+ + + + | CBC, WITH | Urgent | 07/18/2019 | | Results for this | | DIFFERENTIAL | | 8:58 AM | | procedure are in the | | | | PDT | | results section. | + +--------+ + + + | TROPONIN I, PLASMA | Urgent | 07/18/2019 | | Results for this | | | | 8:58 AM | | procedure are in the | | | | PDT | | results section. | + +--------+ + + + | BASIC METABOLIC SET | Urgent | 07/18/2019 | | Results for this | | (NA, K, CL, TCO2, | | 8:58 AM | | procedure are in the | | BUN, CR, GLU, CA) | | PDT | | results section. | + +--------+ + + + | C-REACTIVE PROTEIN | Urgent | 07/18/2019 | | Results for this | | | | 8:58 AM | | procedure are in the | | | | PDT | | results section. | + +--------+ + + + | SEDIMENTATION RATE | Urgent | 07/18/2019 | | Results for this | | | | 8:58 AM | | procedure are in the | | | | PDT | | results section. | + +--------+ + + + | PHOSPHORUS, PLASMA | Urgent | 07/18/2019 | | Results for this | | | | 8:58 AM | | procedure are in the | | | | PDT | | results section. | + +--------+ + + + | FREE T4 | Urgent | 07/18/2019 | | Results for this | | | | 8:58 AM | | procedure are in the | | | | PDT | | results section. | + +--------+ + + + | LACTATE | Urgent | 07/18/2019 | | Results for this | | | | 8:58 AM | | procedure are in the | | | | PDT | | results section. | + +--------+ + + + | TSH | Urgent | 07/18/2019 | | Results for this | | | | 8:58 AM | | procedure are in the | | | | PDT | | results section. | + +--------+ + + + | MAGNESIUM, PLASMA | Urgent | 07/18/2019 | | Results for this | | | | 8:58 AM | | procedure are in the | | | | PDT | | results section. | + +--------+ + + + | CK, PLASMA | Urgent | 07/18/2019 | | Results for this | | | | 8:58 AM | | procedure are in the | | | | PDT | | results section. | + +--------+ + + + | CAPILLARY BLOOD | Routin | 07/18/2019 | Alcoholic | Results for this | | GLUCOSE (NO CHG), | e | 8:57 AM | cirrhosis of liver | procedure are in the | | POC | | PDT | with ascites (HCC) | results section. | + +--------+ + + + | X-RAY KNEE 2 VIEWS | Urgent | 07/18/2019 | | Results for this | | RIGHT | | 8:19 AM | | procedure are in the | | | | PDT | | results section. | + +--------+ + + + | CAPILLARY BLOOD | Routin | 07/18/2019 | Alcoholic | Results for this | | GLUCOSE (NO CHG), | e | 8:18 AM | cirrhosis of liver | procedure are in the | | POC | | PDT | with ascites (HCC) | results section. | + +--------+ + + + | X-RAY PORTABLE CHEST | Urgent | 07/18/2019 | | Results for this | | 1 VIEW | | 8:17 AM | | procedure are in the | | | | PDT | | results section. | + +--------+ + + + | 12 LEAD ECG | Routin | 07/18/2019 | | Results for this | | | e | 7:43 AM | | procedure are in the | | | | PDT | | results section. | + +--------+ + + + | BLOOD GASES, VENOUS | Urgent | 07/18/2019 | | Results for this | | - LAB | | 7:31 AM | | procedure are in the | | | | PDT | | results section. | + +--------+ + + + | ANTIBODY SCREEN | Urgent | 07/18/2019 | | Results for this | | | | 7:10 AM | | procedure are in the | | | | PDT | | results section. | + +--------+ + + + | TYPE AND SCREEN | Urgent | 07/18/2019 | | Results for this | | | | 7:10 AM | | procedure are in the | | | | PDT | | results section. | + +--------+ + + + | ABO & RH TYPE | Urgent | 07/18/2019 | | Results for this | | | | 7:10 AM | | procedure are in the | | | | PDT | | results section. | + +--------+ + + + | CAPILLARY BLOOD | Routin | 07/18/2019 | Alcoholic | Results for this | | GLUCOSE (NO CHG), | e | 7:06 AM | cirrhosis of liver | procedure are in the | | POC | | PDT | with ascites (HCC) | results section. | + +--------+ + + + | 12 LEAD ECG | Routin | 07/18/2019 | | Results for this | | | e | 6:25 AM | | procedure are in the | | | | PDT | | results section. | + +--------+ + + + | CAPILLARY BLOOD | Routin | 07/18/2019 | Alcoholic | Results for this | | GLUCOSE (NO CHG), | e | 5:56 AM | cirrhosis of liver | procedure are in the | | POC | | PDT | with ascites (HCC) | results section. | + +--------+ + + + | 12 LEAD ECG | Routin | 07/18/2019 | | Results for this | | | e | 5:13 AM | | procedure are in the | | | | PDT | | results section. | + +--------+ + + + | CAPILLARY BLOOD | Routin | 07/18/2019 | Alcoholic | Results for this | | GLUCOSE (NO CHG), | e | 5:12 AM | cirrhosis of liver | procedure are in the | | POC | | PDT | with ascites (HCC) | results section. | + +--------+ + + + | CBC AND AUTO DIFF | Routin | 07/18/2019 | | Results for this | | | e | 5:09 AM | | procedure are in the | | | | PDT | | results section. | + +--------+ + + + | CBC, WITH | Routin | 07/18/2019 | | Results for this | | DIFFERENTIAL | e | 5:09 AM | | procedure are in the | | | | PDT | | results section. | + +--------+ + + + | TROPONIN I, PLASMA | Routin | 07/18/2019 | | Results for this | | | e | 5:09 AM | | procedure are in the | | | | PDT | | results section. | + +--------+ + + + | COMPLETE METABOLIC | Routin | 07/18/2019 | | Results for this | | SET | e | 5:09 AM | | procedure are in the | | (NA,K,CL,CO2,BUN,CRE | | PDT | | results section. | | AT,GLUC,CA,AST,ALT,B | | | | | | KEV TOTAL,ALK | | | | | | PHOS,ALB,PROT TOTAL) | | | | | + +--------+ + + + | COAGULOPATHY PANEL | Urgent | 07/18/2019 | | Results for this | | (INR,APTT,FIBRINOGEN | | 5:09 AM | | procedure are in the | | ) | | PDT | | results section. | + +--------+ + + + | 12 LEAD ECG | Routin | 07/18/2019 | | Results for this | | | e | 5:05 AM | | procedure are in the | | | | PDT | | results section. | + +--------+ + + + | CAPILLARY BLOOD | Routin | 07/18/2019 | Alcoholic | Results for this | | GLUCOSE (NO CHG), | e | 4:08 AM | cirrhosis of liver | procedure are in the | | POC | | PDT | with ascites (HCC) | results section. | + +--------+ + + + | CAPILLARY BLOOD | Routin | 07/18/2019 | Alcoholic | Results for this | | GLUCOSE (NO CHG), | e | 3:00 AM | cirrhosis of liver | procedure are in the | | POC | | PDT | with ascites (HCC) | results section. | + +--------+ + + + | CAPILLARY BLOOD | Routin | 07/18/2019 | Alcoholic | Results for this | | GLUCOSE (NO CHG), | e | 1:59 AM | cirrhosis of liver | procedure are in the | | POC | | PDT | with ascites (HCC) | results section. | + +--------+ + + + | CAPILLARY BLOOD | Routin | 07/18/2019 | Alcoholic | Results for this | | GLUCOSE (NO CHG), | e | 1:03 AM | cirrhosis of liver | procedure are in the | | POC | | PDT | with ascites (HCC) | results section. | + +--------+ + + + | CAPILLARY BLOOD | Routin | 07/18/2019 | Alcoholic | Results for this | | GLUCOSE (NO CHG), | e | 12:12 AM | cirrhosis of liver | procedure are in the | | POC | | PDT | with ascites (HCC) | results section. | + +--------+ + + + | CARDIOLOGY | | 07/18/2019 | | Results for this | | | | 12:00 AM | | procedure are in the | | | | PDT | | results section. | + +--------+ + + + | CARDIOLOGY | | 07/18/2019 | | Results for this | | | | 12:00 AM | | procedure are in the | | | | PDT | | results section. | + +--------+ + + + | CARDIOLOGY | | 07/18/2019 | | Results for this | | | | 12:00 AM | | procedure are in the | | | | PDT | | results section. | + +--------+ + + + | CARDIOLOGY | | 07/18/2019 | | Results for this | | | | 12:00 AM | | procedure are in the | | | | PDT | | results section. | + +--------+ + + + | CARDIOLOGY | | 07/18/2019 | | Results for this | | | | 12:00 AM | | procedure are in the | | | | PDT | | results section. 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 | + +--------+ + + + | C-REACTIVE PROTEIN | Routin | 07/17/2019 | | Results for this | | | e | 11:17 PM | | procedure are in the | | | | PDT | | results section. | + +--------+ + + + | LACTATE | Routin | 07/17/2019 | | Results for this | | | e | 11:17 PM | | procedure are in the | | | | PDT | | results section. | + +--------+ + + + | BLOOD GASES, VENOUS | Urgent | 07/17/2019 | | Results for this | | - LAB | | 11:17 PM | | procedure are in the | | | | PDT | | results section. 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 | + +--------+ + + + | US LIVER W/ DOPPLER | Urgent | 07/17/2019 | | Results for this | | | | 10:20 PM | | procedure are in the | | | | PDT | | results section. | + +--------+ + + + | 12 LEAD ECG | Routin | 07/17/2019 | | Results for this | | | e | 9:15 PM | | procedure are in the | | | | PDT | | results section. | + +--------+ + + + | CULTURE, URINE [facility] | Routin | 07/17/2019 | | Results for this | | | e | 8:18 PM | | procedure are in the | | | | PDT | | results section. | + +--------+ + + + | SODIUM TOTAL, URINE | Urgent | 07/17/2019 | | Results for this | | | | 8:18 PM | | procedure are in the | | | | PDT | | results section. | + +--------+ + + + | UA, DIPSTICK ONLY | Routin | 07/17/2019 | | Results for this | | | e | 8:18 PM | | procedure are in the | | | | PDT | | results section. | + +--------+ + + + | URINE, MICROSCOPIC | Routin | 07/17/2019 | | Results for this | | EXAM | e | 8:18 PM | | procedure are in the | | | | PDT | | results section. | + +--------+ + + + | URINE SCREEN FOR | Routin | 07/17/2019 | | Results for this | | CULTURE | e | 8:18 PM | | procedure are in the | | | | PDT | | results section. | + +--------+ + + + | CULTURE, URINE BACTI | Routin | 07/17/2019 | | Results for this | | | e | 8:18 PM | | procedure are in the | | | | PDT | | results section. | + +--------+ + + + | OSMOLALITY, URINE | Routin | 07/17/2019 | | Results for this | | SPOT | e | 8:18 PM | | procedure are in the | | | | PDT | | results section. | + +--------+ + + + | UREA NITROGEN, URINE | Urgent | 07/17/2019 | | Results for this | | | | 8:18 PM | | procedure are in the | | | | PDT | | results section. | + +--------+ + + + | CREATININE, URINE | Urgent | 07/17/2019 | | Results for this | | | | 8:18 PM | | procedure are in the | | | | PDT | | results section. | + +--------+ + + + | COMPLETE METABOLIC | Routin | 07/17/2019 | | Results for this | | SET | e | 8:06 PM | | procedure are in the | | (NA,K,CL,CO2,BUN,CRE | | PDT | | results section. | | AT,GLUC,CA,AST,ALT,B | | | | | | KEV TOTAL,ALK | | | | | | PHOS,ALB,PROT TOTAL) | | | | | + +--------+ + + + | HAPTOGLOBIN | Routin | 07/17/2019 | | Results for this | | | e | 8:06 PM | | procedure are in the | | | | PDT | | results section. | + +--------+ + + + | LDH TOTAL, PLASMA | Routin | 07/17/2019 | | Results for this | | | e | 8:06 PM | | procedure are in the | | | | PDT | | results section. | + +--------+ + + + | CULTURE, BLOOD BACTI | Routin | 07/17/2019 | | Results for this | | & YEAST [facility] | e | 8:05 PM | | procedure are in the | | | | PDT | | results section. | + +--------+ + + + | CULTURE, BLOOD BACTI | Routin | 07/17/2019 | | Results for this | | & YEAST | e | 8:05 PM | | procedure are in the | | | | PDT | | results section. | + +--------+ + + + | PHOSPHORUS, PLASMA | Routin | 07/17/2019 | | Results for this | | | e | 8:02 PM | | procedure are in the | | | | PDT | | results section. | + +--------+ + + + | MAGNESIUM, PLASMA | Routin | 07/17/2019 | | Results for this | | | e | 8:02 PM | | procedure are in the | | | | PDT | | results section. | + +--------+ + + + | CULTURE, BLOOD BACTI | Routin | 07/17/2019 | | Results for this | | & YEAST [facility] | e | 8:01 PM | | procedure are in the | | | | PDT | | results section. | + +--------+ + + + | CULTURE, BLOOD BACTI | Routin | 07/17/2019 | | Results for this | | & YEAST | e | 8:01 PM | | procedure are in the | | | | PDT | | results section. | + +--------+ + + + | OSMOLALITY, PLASMA | Routin | 07/17/2019 | | Results for this | | | e | 8:01 PM | | procedure are in the | | | | PDT | | results section. | + +--------+ + + + | CBC AND AUTO DIFF | Routin | 07/17/2019 | | Results for this | | | e | 7:53 PM | | procedure are in the | | | | PDT | | results section. | + +--------+ + + + | CBC, WITH | Routin | 07/17/2019 | | Results for this | | DIFFERENTIAL | e | 7:53 PM | | procedure are in the | | | | PDT | | results section. | + +--------+ + + + | RETICULOCYTE COUNT, | Routin | 07/17/2019 | | Results for this | | BLOOD | e | 7:53 PM | | procedure are in the | | | | PDT | | results section. | + +--------+ + + + | SEDIMENTATION RATE | Routin | 07/17/2019 | | Results for this | | | e | 7:53 PM | | procedure are in the | | | | PDT | | results section. | + +--------+ + + + | COAGULOPATHY PANEL | Urgent | 07/17/2019 | | Results for this | | (INR,APTT,FIBRINOGEN | | 7:53 PM | | procedure are in the | | ) | | PDT | | results section. | + +--------+ + + + | HEMOGLOBIN A1C, | Routin | 07/17/2019 | | Results for this | | BLOOD | e | 7:53 PM | | procedure are in the | | | | PDT | | results section. | + +--------+ + + + | CAPILLARY BLOOD | Routin | 07/17/2019 | Alcoholic | Results for this | | GLUCOSE (NO CHG), | e | 6:59 PM | cirrhosis of liver | procedure are in the | | POC | | PDT | with ascites (HCC) | results section. | + +--------+ + + + | PEDIATRIC PERFUSION | | 07/17/2019 | | Results for this | | | | 12:00 AM | | procedure are in the | | | | PDT | | results section. | + +--------+ + + + documented in this encounter Results CAPILLARY BLOOD GLUCOSE (NO CHG), POC (08/29/2019 2:47 PM PST) + +-------+ + + + | Component | Value | Ref Range | Performed | Pathologist | | | | | At | Signature | + +-------+ + + + | BLOOD | 81 | 70 - 99 mg/dL | [facility] | | | GLUCOSE, | | | [place] | | | POC | | | [place] | | | | | | OF CARE | | | | | | TESTS | | + +-------+ + + + + + | Specimen | + + | Blood | + + + + + + + | Performing | Address | City/State/Zipcode | Phone Number | | Organization | | | | + + + + + | [facility] | [address] | [place], [place] | | | [facility] | [facility] | [phone] | | | TESTS | | | | + + + + + CAPILLARY BLOOD GLUCOSE (NO CHG), POC (08/29/2019 7:27 AM PST) + +---------+ + + + | Component | Value | Ref Range | Performed | Pathologist | | | | | At | Signature | + +---------+ + + + | BLOOD | 182 (H) | 70 - 99 mg/dL | [facility] - | | | GLUCOSE, | | | [place] | | | POC | | | [facility] | | | | | | OF CARE | | | | | | TESTS | | + +---------+ + + + + + | Specimen | + + | Blood | + + + + + + + | Performing | Address | City/State/Zipcode | Phone Number | | Organization | | | | + + + + + | [facility] | [address] | [place], [place] | | | [facility] | [address] | [phone] | | | TESTS | | | | + + + + + CBC AND AUTO DIFF (08/29/2019 6:01 AM PST) + + + + + + | Component | Value | Ref Range | Performed | Pathologist | | | | | At | Signature | + + + + + + | WHITE CELL | 5.99 | 3.50 - 10.80 | [facility] | | | COUNT | | K/cu mm | LABORATORY | | | | | | SERVICES, | | | | | | CORE | | + + + + + + | RED CELL | 2.40 (L) | 4.50 - 6.00 | [facility] | | | COUNT | | M/cu mm | LABORATORY | | | | | | SERVICES, | | | | | | CORE | | + + + + + + | HEMOGLOBIN | 7.7 (L) | 13.5 - 17.5 | [facility] | | | | | g/dL | LABORATORY | | | | | | SERVICES, | | | | | | CORE | | + + + + + + | HEMATOCRIT | 23.8 (L) | 41.0 - 53.0 % | [...] + + + + | MCHC | 32.4 | 32.0 - 36.0 | [facility] | | | | | g/dL | LABORATORY | | | | | | SERVICES, | | | | | | CORE | | + + + + + + | RDW SD | 67.8 (H) | 35.1 - 46.3 fL | [facility] | | | | | | LABORATORY | | | | | | SERVICES, | | | | | | CORE | | + + + + + + | PLATELET | 145 (L) | 150 - 400 K/cu | [facility] | | | COUNT | | mm | LABORATORY | | | | | | SERVICES, | | | | | | CORE | | + + + + + + | MPV | 9.3 (L) | 9.7 - 12.3 fL | [...] + + + + | NEUTROPHIL | 75.4 (H) | 50.0 - 70.0 % | [facility] | | | % | | | LABORATORY | | | | | | SERVICES, | | | | | | CORE | | + + + + + + | LYMPHOCYTE | 16.5 (L) | 18.0 - 42.0 % | [facility] | | | % | | | LABORATORY | | | | | | SERVICES, | | | | | | CORE | | + + + + + + | MONOCYTE % | 5.0 | 3.5 - 9.0 % | [facility] | | | | | | LABORATORY | | | | | | SERVICES, | | | | | | CORE | | + + + + + + | EOS % | 1.7 | 1.0 - 3.0 % | [facility] [...] + + + + | NEUTROPHIL | 4.52 | 1.80 - 7.70 | [facility] | | | # | | K/cu mm | LABORATORY | | | | | | SERVICES, | | | | | | CORE | | + + + + + + | LYMPHOCYTE | 0.99 (L) | 1.00 - 4.80 | [facility] | | | # | | K/cu mm | LABORATORY | | | | | | SERVICES, | | | | | | CORE | | + + + + + + | MONOCYTE # | 0.30 | 0.10 - 0.90 | [facility] | | | | | K/cu mm | LABORATORY | | | | | | SERVICES, | | | | | | CORE | | + + + + + + | EOS # | 0.10 | 0.00 - 0.50 | [facility] | [...] | + + + + + | [facility] | [address] | [place] [address] | | | SERVICES, CORE | [address] | | | + + + + + INR (08/29/2019 6:01 AM PST) + + + + + + | Component | Value | Ref Range | Performed | Pathologist | | | | | At | Signature | + + + + + + | INR | 1.27 (H) | 0.90 - 1.20 INR | [...] mech. valves (2.5 - 3.5) INR | [facility], CORE | + + + + + + + + | Performing | Address | City/State/Zipcode | Phone Number | | Organization | | | | + + + + + | [facility] | [address] | [place] [address] | | | SERVICES, ART[facility] | [address] | | | + + + + + TACROLIMUS, WHOLE BLOOD (08/29/2019 6:01 AM PST) + + + + + + | Component | Value | Ref Range | Performed | Pathologist | | | | | At | Signature | + + + + + + | TACROLIMUS | 6.3Comment: Begin POD #1 | 5.0 - 15.0 | [facility] | | | ([id number]) | | ng/mL | LABORATORY | | | | | | SERVICES, | | | | | | SPECIAL IMM | | | | | | + COAG | | + + + + + + + + | Specimen | + + | Blood - Blood | | (substance) | + + + + + | Narrative | Performed At | + + + | Test performed by immunoassay using [employer] i2000. . | [facility] | | Samples [...] + + | Performing | Address | City/State[facility] | Phone Number | | Organization | | | | + + + + + | [facility] | [address] | [place] [address] | | | SPECIAL [facility] | [address] | | | | IMM + COAG | | | | + + + + + AMYLASE, PLASMA (08/29/2019 6:01 AM PST) + +--------+ + + + | Component | Value | Ref Range | Performed | Pathologist | | | | | At | Signature | + +--------+ + + + | AMYLASE,EZEQUIEL | 13 (L) | 25 - 115 U/L | [facility] | | | SMA | | | LABORATORY | | | | | | SERVICES, | | | | | | CORE | | + +--------+ + + + + + | Specimen | + + | Blood - Blood | | (substance) | + + + + + + + | Performing | Address | City/State/Zipcode | Phone Number | | Organization | | | | + + + + + | [facility] | [address] | [place] [address] | | | SERVICES, CORE | [address] | | | + + + + + LDH TOTAL, PLASMA (08/29/2019 6:01 AM PST) + +---------+ + + + | Component | Value | Ref Range | Performed | Pathologist | | | | | At | Signature | + +---------+ + + + | LD TOTAL, | 250 | <=250 U/L | [facility] | | | PLASMA | | | LABORATORY | | | | | | SERVICES, | | | | | | CORE | | + +---------+ + + + | LD CMNT | No Hemo | | [facility] [...] | + + + + + | [facility] | [address] | [place] [address] | | | SERVICES, ART[facility] | [address] | | | + + + + + PHOSPHORUS, PLASMA (08/29/2019 6:01 AM PST) + +-------+ + + + | Component | Value | Ref Range | Performed | Pathologist | | | | | At | Signature | + +-------+ + + + | PHOSPHORUS, | 4.0 | 2.4 - 4.7 mg/dL | [facility] [...] + | [facility] | [address] | [place] [address] | | | SERVICES, CORE | [address] | | | + + + + + MAGNESIUM, PLASMA (08/29/2019 6:01 AM PST) + +-------+ + + + | Component | Value | Ref Range | Performed | Pathologist | | | | | At | Signature | + +-------+ + + + | MAGNESIUM,P | 1.8 | 1.6 - 2.6 mg/dL | [facility] | | | LASMA | | | [...] | + + + + + | [facility] | [address] | [place] [address] | | | SERVICES, CORE | [address] | | | + + + + + COMPLETE METABOLIC SET (NA,K,CL,CO2,BUN,CREAT,GLUC,CA,AST,ALT,BILI TOTAL,ALK PHOS,ALB,PROT TOTAL) (08/29/2019 6:01 AM PST) + + + + + + | Component | Value | Ref Range | Performed | Pathologist | | | | | At | Signature | + + + + + + | GLUCOSE, | 201 (H) | 70 - 99 mg/dL | [facility] | | | PLASMA | | | LABORATORY | | | (LAB) | | | SERVICES, | | | | | | CORE | | + + + + + + | BUN, PLASMA | 69 (H) | 6 - 20 mg/dL | [facility] | | | (LAB) | | | LABORATORY | | | | | | SERVICES, | | | | | | CORE | | + + + + + + | CREATININE | 2.50 (H) | 0.70 - 1.30 | [facility] | | | PLASMA | | mg/dL | LABORATORY | | | (LAB) | | | SERVICES, | | | | | | CORE | | + + + + + + | EGFR | 33 (L) | >60 mL/min | [facility] | | | - | | | LABORATORY | | | [place] | | | SERVICES, | | | | | | CORE | | + + + + + + | EGFR NON | 27 (L) | >60 mL/min | [facility] | | | -JARRED | | | LABORATORY | | | RICAN | | | SERVICES, | | | | | | CORE | | + + + + + + | SODIUM, | 135 (L) | 136 - 145 | [facility] [...] + + + | TOTAL CO2, | 26 | 21 - 32 mmol/L | [facility] | | | PLASMA | | | LABORATORY | | | (LAB) | | | SERVICES, | | | | | | CORE | | + + + + + + | CALCIUM, | 8.8 | 8.6 - 10.2 | [facility] | | | PLASMA | | mg/dL | LABORATORY | | | (LAB) | | | SERVICES, | | | | | | CORE | | + + + + + + | CALCIUM(ALB | 9.0 | 8.6 - 10.2 | [facility] | | | CORRECTED) | | mg/dL | LABORATORY | | | | | | SERVICES, | | | | | | CORE | | + + + + + + | BILIRUBIN | 1.0 | 0.3 - 1.2 mg/dL | [facility] | | | TOTAL | | | LABORATORY | | | | | | SERVICES, | | | | | | CORE | | + + + + + + | TOTAL | 6.1 (L) | 6.4 - 8.2 g/dL | [facility] | | | PROTEIN, | | | LABORATORY | | | PLASMA | | | SERVICES, | | | (LAB) | | | CORE | | + + + + + + | ALBUMIN, | 3.8 | 3.5 - 4.7 g/dL | [facility] | | | PLASMA | | | LABORATORY | | | (LAB) | | | SERVICES, | | | | | | CORE | | + + + + + + | ALK PHOS | 46 (L) | 53 - 128 U/L | [facility] | | | | | | LABORATORY | | | | | | SERVICES, | | | | | | CORE | | + + + + + + | AST(SGOT) | 9 | <=41 U/L | [facility] | | | | | | LABORATORY | | | | | | SERVICES, | | | | | | CORE | | + + + + + + | ALT (SGPT) | 32 | <=60 U/L | [facility] | | [...] MDRD equation recommended by the National | [facility] | | Kidney Disease Education Program. Estimated [...] | + + + + + | [facility] | [address] | [place] [address] | | | SERVICES, CORE | [address] | | | + + + + + CAPILLARY BLOOD GLUCOSE (NO CHG), POC (08/28/2019 9:06 PM PST) + +---------+ + + + | Component | Value | Ref Range | Performed | Pathologist | | | | | At | Signature | + +---------+ + + + | BLOOD | 228 (H) | 70 - 99 mg/dL | [facility] | | | GLUCOSE, | | | [facility] | | | POC | | | [facility] | | | | | | OF CARE | | | | | | TESTS | | + +---------+ + + + + + | Specimen | + + | Blood | + + + + + + + | Performing | Address | City/State/Zipcode | Phone Number | | Organization | | | | + + + + + | [facility] | [address] | [place], [place] | | | [facility] | [address] | [address] | | | TESTS | | | | + + + + + CAPILLARY BLOOD GLUCOSE (NO CHG), POC (08/28/2019 6:08 PM PST) + +---------+ + + + | Component | Value | Ref Range | Performed | Pathologist | | | | | At | Signature | + +---------+ + + + | BLOOD | 186 (H) | 70 - 99 mg/dL | [facility] | | | GLUCOSE, | | | [place] | | | POC | | | [facility] | | | | | | OF CARE | | | | | | TESTS | | + +---------+ + + + + + | Specimen | + + | Blood | + + + + + + + | Performing | Address | City/State/Zipcode | Phone Number | | Organization | | | | + + + + + | [facility] | [address] | [place], [place] | | | [facility] | [address] | [address] | | | TESTS | | | | + + + + + CAPILLARY BLOOD GLUCOSE (NO CHG), POC (08/28/2019 1:17 PM PST) + +---------+ + + + | Component | Value | Ref Range | Performed | Pathologist | | | | | At | Signature | + +---------+ + + + | BLOOD | 138 (H) | 70 - 99 mg/dL | [facility] | | | GLUCOSE, | | | [place] | | | POC | | | [facility] | | | | | | OF CARE | | | | | | TESTS | | + +---------+ + + + + + | Specimen | + + | Blood | + + + + + + + | Performing | Address | City/State/Zipcode | Phone Number | | Organization | | | | + + + + + | [facility] | [address] | [place], [place] | | | [facility] | [address] | [address] | | | TESTS | | | | + + + + + CAPILLARY BLOOD GLUCOSE (NO CHG), POC (08/28/2019 7:45 AM PST) + +---------+ + + + | Component | Value | Ref Range | Performed | Pathologist | | | | | At | Signature | + +---------+ + + + | BLOOD | 189 (H) | 70 - 99 mg/dL | [facility] | | | GLUCOSE, | | | [place] | | | POC | | | [facility] | | | | | | OF CARE | | | | | | TESTS | | + +---------+ + + + + + | Specimen | + + | Blood | + + + + + + + | Performing | Address | City/State/Zipcode | Phone Number | | Organization | | | | + + + + + | [facility] | [address] | [place], [place] | | | [facility] | [address] | [address] | | | TESTS | | | | + + + + + CBC AND AUTO DIFF (08/28/2019 5:36 AM PST) + + + + + + | Component | Value | Ref Range | Performed | Pathologist | | | | | At | Signature | + + + + + + | WHITE CELL | 5.11 | 3.50 - 10.80 | [facility] | | | COUNT | | K/cu mm | LABORATORY | | | | | | SERVICES, | | | | | | CORE | | + + + + + + | RED CELL | 2.32 (L) | 4.50 - 6.00 | [facility] [...] + + + + | HEMATOCRIT | 23.0 (L) | 41.0 - 53.0 % | [facility] | | | | | | LABORATORY | | | | | | SERVICES, | | | | | | CORE | | + + + + + + | MCV | 99.1 | 80.0 - 100.0 fL | [facility] | | | | | | LABORATORY | | | | | | SERVICES, | | | | | | CORE | | + + + + + + | MCHC | 33.0 | 32.0 - 36.0 | [facility] | | | | | g/dL | LABORATORY | | | | | | SERVICES, | | | | | | CORE | | + + + + + + | RDW SD | 64.5 (H) | 35.1 - 46.3 fL | [facility] | | | | | | LABORATORY | | | | | | SERVICES, | | | | | | CORE | | + + + + + + | PLATELET | 110 (L) | 150 - 400 K/cu | [facility] | | | COUNT | | mm | LABORATORY | | | | | | SERVICES, | | | | | | CORE | | + + + + + + | MPV | 9.3 (L) | 9.7 - 12.3 fL | [...] + + + + | NEUTROPHIL | 74.9 (H) | 50.0 - 70.0 % | [facility] | | | % | | | LABORATORY | | | | | | SERVICES, | | | | | | CORE | | + + + + + + | LYMPHOCYTE | 17.4 (L) | 18.0 - 42.0 % | [facility] | | | % | | | LABORATORY | | | | | | SERVICES, | | | | | | CORE | | + + + + + + | MONOCYTE % | 4.7 | 3.5 - 9.0 % | [facility] | | | | | | LABORATORY | | | | | | SERVICES, | | | | | | CORE | | + + + + + + | EOS % | 1.8 | 1.0 - 3.0 % | [facility] | | | | | | LABORATORY | | | | | | SERVICES, | | | | | | CORE | | + + + + + + | BASO % | 0.6 | 0.0 - 2.0 % | [facility] | | | | | | LABORATORY | | | | | | SERVICES, | | | | | | CORE | | + + + + + + | IG% | 0.6 | 0.0 - 1.0 % | [facility] | | | | | | LABORATORY | | | | | | SERVICES, | | | | | | CORE | | + + + + + + | NEUTROPHIL | 3.83 | 1.80 - 7.70 | [facility] | | | # | | K/cu mm | LABORATORY | | | | | | SERVICES, | | | | | | CORE | | + + + + + + | LYMPHOCYTE | 0.89 (L) | 1.00 - 4.80 | [facility] | | | # | | K/cu mm | LABORATORY | | | | | | SERVICES, | | | | | | CORE | | + + + + + + | MONOCYTE # | 0.24 | 0.10 - 0.90 | [facility] | [...] | + + + + + | [facility] | [address] | [place] [address] | | | SERVICES, CORE | [address] | | | + + + + + INR (08/28/2019 5:36 AM PST) + + + + + + | Component | Value | Ref Range | Performed | Pathologist | | | | | At | Signature | + + + + + + | INR | 1.29 (H) | 0.90 - 1.20 INR | [...] + | [facility] | [address] | [place] [address] | | | SERVICES, CORE | [address] | | | + + + + + TACROLIMUS, WHOLE BLOOD (08/28/2019 5:36 AM PST) + + + + + + | Component | Value | Ref Range | Performed | Pathologist | | | | | At | Signature | + + + + + + | TACROLIMUS | 6.0Comment: Colette POD #1 | 5.0 - 15.0 | [facility] | | | ([address]) | | ng/mL | LABORATORY | | | | | | SERVICES, | | | | | | SPECIAL IMM | | | | | | + COAG | | + + + + + + + + | Specimen | + + | Blood - Blood | | (substance) | + + + + + | Narrative | Performed At | + + + | Test performed by immunoassay using Palafox Child And Adolescent Psychologist i2000. . | [facility] | | Samples [...] | + + + + + | [facility] | [address] | [place] [address] | | | SERVICES, SPECIAL | [address] | | | | IMM + COAG | | | | + + + + + AMYLASE, PLASMA (08/28/2019 5:36 AM PST) + +--------+ + + + | Component | Value | Ref Range | Performed | Pathologist | | | | | At | Signature | + +--------+ + + + | AMYLASE,EZEQUIEL | 14 (L) | 25 - 115 U/L | [facility] | | | [facility] | | | LABORATORY | | | | | | SERVICES, | | | | | | CORE | | + +--------+ + + + + + | Specimen | + + | Blood - Blood | | (substance) | + + + + + + + | Performing | Address | City/State/Zipcode | Phone Number | | Organization | | | | + + + + + | [facility] | [address] | [place] [address] | | | SERVICES, CORE | [address] | | | + + + + + LDH TOTAL, PLASMA (08/28/2019 5:36 AM PST) + +---------+ + + + | Component | Value | Ref Range | Performed | Pathologist | | | | | At | Signature | + +---------+ + + + | LD TOTAL, | 226 | <=250 U/L | [facility] | | | PLASMA | | | LABORATORY | | | | | | SERVICES, | | | | | | CORE | | + +---------+ + + + | LD CMNT | No Hemo | | [facility] [...] | [facility] | [address] | [place] [address] | | | SERVICES, CORE | [address] | | | + + + + + PHOSPHORUS, PLASMA (08/28/2019 5:36 AM PST) + +-------+ + + + | Component | Value | Ref Range | Performed | Pathologist | | | | | At | Signature | + +-------+ + + + | PHOSPHORUS, | 4.4 | 2.4 - 4.7 mg/dL | [facility] [...] | + + + + + | [facility] | [address] | [place] [address] | | | SERVICES, CORE | [address] | | | + + + + + MAGNESIUM, PLASMA (08/28/2019 5:36 AM PST) + +-------+ + + + | Component | Value | Ref Range | Performed | Pathologist | | | | | At | Signature | + +-------+ + + + | MAGNESIUM,P | 1.8 | 1.6 - 2.6 mg/dL | [facility] [...] + | [facility] | [address] | [place] [address] | | | SERVICES, CORE | [address] | | | + + + + + COMPLETE METABOLIC SET (NA,K,CL,CO2,BUN,CREAT,GLUC,CA,AST,ALT,BILI TOTAL,ALK PHOS,ALB,PROT TOTAL) (08/28/2019 5:36 AM PST) + + + + + + | Component | Value | Ref Range | Performed | Pathologist | | | | | At | Signature | + + + + + + | GLUCOSE, | 240 (H) | 70 - 99 mg/dL | [facility] | | | PLASMA | | | LABORATORY | | | (LAB) | | | SERVICES, | | | | | | CORE | | + + + + + + | BUN, PLASMA | 74 (H) | 6 - 20 mg/dL | [facility] | | | (LAB) | | | LABORATORY | | | | | | SERVICES, | | | | | | CORE | | + + + + + + | CREATININE | 2.47 (H) | 0.70 - 1.30 | [facility] | | | PLASMA | | mg/dL | LABORATORY | | | (LAB) | | | SERVICES, | | | | | | CORE | | + + + + + + | EGFR | 33 (L) | >60 mL/min | [facility] | | | - | | | LABORATORY | | | [place] | | | SERVICES, | | | | | | CORE | | + + + + + + | EGFR NON | 27 (L) | >60 mL/min | [facility] | | | -JARRED | | | LABORATORY | | | [...] + + | POTASSIUM, | 4.7 | 3.4 - 5.0 | [facility] | [...] + | TOTAL CO2, | 27 | 21 - 32 mmol/L | [facility] | | | PLASMA | | | LABORATORY | | | (LAB) | | | SERVICES, | | | | | | CORE | | + + + + + + | CALCIUM, | 8.7 | 8.6 - 10.2 | [facility] | | | PLASMA | | mg/dL | LABORATORY | | | (LAB) | | | SERVICES, | | | | | | CORE | | + + + + + + | CALCIUM(ALB | 8.9 | 8.6 - 10.2 | [facility] | | | CORRECTED) | | mg/dL | LABORATORY | | | | | | SERVICES, | | | | | | CORE | | + + + + + + | BILIRUBIN | 1.1 | 0.3 - 1.2 mg/dL | [facility] | | | TOTAL | | | LABORATORY | | | | | | SERVICES, | | | | | | CORE | | + + + + + + | TOTAL | 5.8 (L) | 6.4 - 8.2 g/dL | [...] + + + | ALK PHOS | 41 (L) | 53 - 128 U/L | [...] + + + | ALT (SGPT) | 33 | <=60 U/L | [facility] | | | | | | LABORATORY | | | | | | SERVICES, | | | | | | CORE | | + + + + + + | ANION GAP | 7 | 4 - 11 mmol/L | [facility] | | | | | | LABORATORY | | | | | | SERVICES, | | | | | | CORE | | + + + + + + | ANION | 7 | 4 - 11 mmol/L | [facility] [...] MDRD equation recommended by the National | [facility] | | Kidney Disease Education Program. Estimated [...] | + + + + + | [facility] | [address] | [place] [address] | | | ARTIS T[facility]LOR | [address] | | | + + + + + CAPILLARY BLOOD GLUCOSE (NO CHG), POC (08/27/2019 10:48 PM PST) + +---------+ + + + | Component | Value | Ref Range | Performed | Pathologist | | | | | At | Signature | + +---------+ + + + | BLOOD | 285 (H) | 70 - 99 mg/dL | [facility] - | | | GLUCOSE, | | | [facility] | | | POC | | | [facility] | | | | | | OF CARE | | | | | | TESTS | | + +---------+ + + + + + | Specimen | + + | Blood | + + + + + + + | Performing | Address | City/State/Zipcode | Phone Number | | Organization | | | | + + + + + | [facility] | [address] | [place], [place] | | | [facility] | [address] | [address] | | | TESTS | | | | + + + + + CAPILLARY BLOOD GLUCOSE (NO CHG), POC (08/27/2019 6:55 PM PST) + +---------+ + + + | Component | Value | Ref Range | Performed | Pathologist | | | | | At | Signature | + +---------+ + + + | BLOOD | 278 (H) | 70 - 99 mg/dL | [facility] | | | GLUCOSE, | | | [place] | | | POC | | | [facility] | | | | | | OF CARE | | | | | | TESTS | | + +---------+ + + + + + | Specimen | + + | Blood | + + + + + + + | Performing | Address | City/State/Zipcode | Phone Number | | Organization | | | | + + + + + | [facility] | [address] | [place], [place] | | | [facility] | [facility] | [address] | | | TESTS | | | | + + + + + CAPILLARY BLOOD GLUCOSE (NO CHG), POC (08/27/2019 1:24 PM PST) + +---------+ + + + | Component | Value | Ref Range | Performed | Pathologist | | | | | At | Signature | + +---------+ + + + | BLOOD | 140 (H) | 70 - 99 mg/dL | [facility] - | | | GLUCOSE, | | | [facility] | | | POC | | | [facility] | | | | | | OF CARE | | | | | | TESTS | | + +---------+ + + + + + | Specimen | + + | Blood | + + + + + + + | Performing | Address | City/State/Zipcode | Phone Number | | Organization | | | | + + + + + | [facility] | [address] | [place], [place] | | | [facility] [place] | [facility] | [address] | | | TESTS | | | | + + + + + CAPILLARY BLOOD GLUCOSE (NO CHG), POC (08/27/2019 7:15 AM PST) + +---------+ + + + | Component | Value | Ref Range | Performed | Pathologist | | | | | At | Signature | + +---------+ + + + | BLOOD | 186 (H) | 70 - 99 mg/dL | [facility] - | | | GLUCOSE, | | | [facility] | | | POC | | | [facility] | | | | | | OF CARE | | | | | | TESTS | | + +---------+ + + + + + | Specimen | + + | Blood | + + + + + + + | Performing | Address | City/State/Zipcode | Phone Number | | Organization | | | | + + + + + | [facility] | [address] | [place], [place] | | | [facility] | [address] | [address] | | | TESTS | | | | + + + + + CBC AND AUTO DIFF (08/27/2019 5:57 AM PST) + + + + + + | Component | Value | Ref Range | Performed | Pathologist | | | | | At | Signature | + + + + + + | WHITE CELL | 4.52 | 3.50 - 10.80 | [facility] | | | COUNT | | K/cu mm | LABORATORY | | | | | | SERVICES, | | | | | | CORE | | + + + + + + | RED CELL | 2.40 (L) | 4.50 - 6.00 | [facility] | | | COUNT | | M/cu mm | LABORATORY | | | | | | SERVICES, | | | | | | CORE | | + + + + + + | HEMOGLOBIN | 7.8 (L) | 13.5 - 17.5 | [facility] | | | | | g/dL | LABORATORY | | | | | | SERVICES, | | | | | | CORE | | + + + + + + | HEMATOCRIT | 23.7 (L) | 41.0 - 53.0 % | [facility] | | | | | | LABORATORY | | | | | | SERVICES, | | | | | | CORE | | + + + + + + | MCV | 98.8 | 80.0 - 100.0 fL | [facility] | | | | | | LABORATORY | | | | | | SERVICES, | | | | | | CORE | | + + + + + + | MCHC | 32.9 | 32.0 - 36.0 | [facility] | | | | | g/dL | LABORATORY | | | | | | SERVICES, | | | | | | CORE | | + + + + + + | RDW SD | 63.4 (H) | 35.1 - 46.3 fL | [facility] | | | | | | LABORATORY | | | | | | SERVICES, | | | | | | CORE | | + + + + + + | PLATELET | 94 (L) | 150 - 400 K/cu | [facility] | | | COUNT | | mm | LABORATORY | | | | | | SERVICES, | | | | | | CORE | | + + + + + + | MPV | 9.5 (L) | 9.7 - 12.3 fL | [...] + + + + | NEUTROPHIL | 73.5 (H) | 50.0 - 70.0 % | [facility] | | | % | | | LABORATORY | | | | | | SERVICES, | | | | | | CORE | | + + + + + + | LYMPHOCYTE | 18.4 | 18.0 - 42.0 % | [facility] | | | % | | | LABORATORY | | | | | | SERVICES, | | | | | | CORE | | + + + + + + | MONOCYTE % | 5.1 | 3.5 - 9.0 % | [facility] | | | | | | LABORATORY | | | | | | SERVICES, | | | | | | CORE | | + + + + + + | EOS % | 2.2 | 1.0 - 3.0 % | [facility] [...] + + + + | IG% | 0.4 | 0.0 - 1.0 % | [facility] | | | | | | LABORATORY | | | | | | SERVICES, | | | | | | CORE | | + + + + + + | NEUTROPHIL | 3.32 | 1.80 - 7.70 | [facility] | | | # | | K/cu mm | LABORATORY | | | | | | SERVICES, | | | | | | CORE | | + + + + + + | LYMPHOCYTE | 0.83 (L) | 1.00 - 4.80 | [facility] [...] + + + | EOS # | 0.10 | 0.00 - 0.50 | [facility] | [...] (IG) define a left shift. Immature | [facility] | | granulocytes (IG) are an automated count of metamyelocytes, myelocytes | LABORATORY | | and promyelocytes. Bands are not included in the IG count. Bands are | [facility], CORE | | included in the neutrophil count. | | + + + + + + + + | Performing | Address | City/State/Zipcode | Phone Number | | Organization | | | | + + + + + | [facility] | [address] | [place] [address] | | | ARTIS TAYLOR | [address] | | | + + + + + INR (08/27/2019 5:57 AM PST) + +-------+ + + + | Component | Value | Ref Range | Performed | Pathologist | | | | | At | Signature | + +-------+ + + + | INR | 1.19 | 0.90 - 1.20 INR | [facility] [...] mech. valves (2.5 - 3.5) INR | [facility] | + + + + + + + + | Performing | Address | City/State/Zipcode | Phone Number | | Organization | | | | + + + + + | [facility] | [address] | [place] [address] | | | CLAUDIA, ARTIS | [address] | | | + + + + + PREALBUMIN (08/27/2019 5:57 AM PST) + +-------+ + + + | Component | Value | Ref Range | Performed | Pathologist | | | | | At | Signature | + +-------+ + + + | PREALBUMIN | 22.4 | 17.0 - 42.0 | [facility] | | | | | mg/dL | [facility] | | | | | [place] | | + +-------+ + + + + + | Specimen | + + | Blood - Blood | | (substance) | + + + + + + + | Performing | Address | City/State/Zipcode | Phone Number | | Organization | | | | + + + + + | [facility] | [address] | [place] [address] | | | [place] | | | | + + + + + TACROLIMUS, WHOLE BLOOD (08/27/2019 5:57 AM PST) + + + + + + | Component | Value | Ref Range | Performed | Pathologist | | | | | At | Signature | + + + + + + | TACROLIMUS | 6.8Comment: Begin POD #1 | 5.0 - 15.0 | [facility] | | | ([address]) | | ng/mL | LABORATORY | | | | | | SERVICES, | | | | | | SPECIAL IMM | | | | | | + COAG | | + + + + + + + + | Specimen | + + | Blood - Blood | | (substance) | + + + + + | Narrative | Performed At | + + + | Test performed by immunoassay using Palafox Child And Adolescent Psychologist i2000. . | [facility] | | Samples [...] | + + + + + | [facility] | [address] | [place] [address] | | | SERVICES, SPECIAL | [address] | | | | IMM + COAG | | | | + + + + + AMYLASE, PLASMA (08/27/2019 5:57 AM PST) + +--------+ + + + | Component | Value | Ref Range | Performed | Pathologist | | | | | At | Signature | + +--------+ + + + | AMYLASE,EZEQUIEL | 20 (L) | 25 - 115 U/L | [facility] | | | SMA | | | LABORATORY | | | | | | SERVICES, | | | | | | CORE | | + +--------+ + + + + + | Specimen | + + | Blood - Blood | | (substance) | + + + + + + + | Performing | Address | City/State/Zipcode | Phone Number | | Organization | | | | + + + + + | [facility] | [address] | [place] [address] | | | SERVICES, CORE | [address] | | | + + + + + LDH TOTAL, PLASMA (08/27/2019 5:57 AM PST) + +---------+ + + + | Component | Value | Ref Range | Performed | Pathologist | | | | | At | Signature | + +---------+ + + + | LD TOTAL, | 232 | <=250 U/L | [facility] | | | PLASMA | | | LABORATORY | | | | | | SERVICES, | | | | | | CORE | | + +---------+ + + + | LD CMNT | No Hemo | | [facility] [...] | + + + + + | [facility] | [address] | [place] [address] | | | SERVICES, CORE | [address] | | | + + + + + PHOSPHORUS, PLASMA (08/27/2019 5:57 AM PST) + +-------+ + + + [...] + | [facility] | [address] | [place] [address] | | | SERVICES, CORE | [address] | | | + + + + + MAGNESIUM, PLASMA (08/27/2019 5:57 AM PST) + +-------+ + + + | Component | Value | Ref Range | Performed | Pathologist | | | | | At | Signature | + +-------+ + + + | MAGNESIUM,P | 2.0 | 1.6 - 2.6 mg/dL | [facility] [...] | + + + + + | [facility] | [address] | [place] [address] | | | SERVICES, CORE | [address] | | | + + + + + COMPLETE METABOLIC SET (NA,K,CL,CO2,BUN,CREAT,GLUC,CA,AST,ALT,BILI TOTAL,ALK PHOS,ALB,PROT TOTAL) (08/27/2019 5:57 AM PST) + + + + + + | Component | Value | Ref Range | Performed | Pathologist | | | | | At | Signature | + + + + + + | GLUCOSE, | 245 (H) | 70 - 99 mg/dL | [facility] | | | PLASMA | | | LABORATORY | | | (LAB) | | | SERVICES, | | | | | | CORE | | + + + + + + | BUN, PLASMA | 76 (H) | 6 - 20 mg/dL | [facility] | | | (LAB) | | | LABORATORY | | | | | | SERVICES, | | | | | | CORE | | + + + + + + | CREATININE | 2.40 (H) | 0.70 - 1.30 | [facility] | | | PLASMA | | mg/dL | LABORATORY | | | (LAB) | | | SERVICES, | | | | | | CORE | | + + + + + + | EGFR | 34 (L) | >60 mL/min | [facility] | | | - | | | LABORATORY | | | [place] | | | SERVICES, | | | | | | CORE | | + + + + + + | EGFR NON | 28 (L) | >60 mL/min | [facility] | | | -[facility] | | | LABORATORY | | | RICAN | | | SERVICES, | | | | | | CORE | | + + + + + + | SODIUM, | 135 (L) | 136 - 145 | [facility] | | | PLASMA | | mmol/L | LABORATORY | | | (LAB) | | | SERVICES, | | | | | | CORE | | + + + + + + | POTASSIUM, | 4.6 | 3.4 - 5.0 | [facility] | | | PLASMA | | mmol/L | LABORATORY | | | (LAB) | | | SERVICES, | | | | | | CORE | | + + + + + + | CHLORIDE, | 101 | 97 - 108 mmol/L | [facility] | | | PLASMA | | | LABORATORY | | | (LAB) | | | SERVICES, | | | | | | CORE | | + + + + + + | TOTAL CO2, | 27 | 21 - 32 mmol/L | [facility] | | | PLASMA | | | LABORATORY | | | (LAB) | | | SERVICES, | | | | | | CORE | | + + + + + + | CALCIUM, | 8.7 | 8.6 - 10.2 | [facility] | | | PLASMA | | mg/dL | LABORATORY | | | (LAB) | | | SERVICES, | | | | | | CORE | | + + + + + + | CALCIUM(ALB | 8.9 | 8.6 - 10.2 | [facility] | | | CORRECTED) | | mg/dL | LABORATORY | | | | | | SERVICES, | | | | | | CORE | | + + + + + + | BILIRUBIN | 1.1 | 0.3 - 1.2 mg/dL | [facility] | | | TOTAL | | | LABORATORY | | | | | | SERVICES, | | | | | | CORE | | + + + + + + | TOTAL | 6.1 (L) | 6.4 - 8.2 g/dL | [facility] | | | PROTEIN, | | | LABORATORY | | | PLASMA | | | SERVICES, | | | (LAB) | | | CORE | | + + + + + + | ALBUMIN, | 3.8 | 3.5 - 4.7 g/dL | [facility] | | | PLASMA | | | LABORATORY | | | (LAB) | | | SERVICES, | | | | | | CORE | | + + + + + + | ALK PHOS | 47 (L) | 53 - 128 U/L | [facility] | | | | | | LABORATORY | | | | | | SERVICES, | | | | | | CORE | | + + + + + + | AST(SGOT) | 14 | <=41 U/L | [facility] | | | | | | LABORATORY | | | | | | SERVICES, | | | | | | CORE | | + + + + + + | ALT (SGPT) | 40 | <=60 U/L | [facility] | | | | | | LABORATORY | | | | | | SERVICES, | | | | | | CORE | | + + + + + + | ANION GAP | 7 | 4 - 11 mmol/L | [facility] | | | | | | LABORATORY | | | | | | SERVICES, | | | | | | CORE | | + + + + + + | ANION | 7 | 4 - 11 mmol/L | [facility] [...] MDRD equation recommended by the National | [facility] | | Kidney Disease Education Program. Estimated GFR Interpretive | LABORATORY | | Information: <60 mL/min/1.73 sq m Chronic Kidney | SERVICES, [facility] | | Disease <15 mL/min/1.73 sq m [...] | + + + + + | [facility] | [address] | [place] [address] | | | CLAUDIA, ARTIS | [address] | | | + + + + + CARDIOLOGY (08/27/2019 12:00 AM PST) + + + | Narrative | Performed At | + + + | | | + + + CARDIOLOGY (08/27/2019 12:00 AM PST) + + + | Narrative | Performed At | + + + | | | + + + CAPILLARY BLOOD GLUCOSE (NO CHG), POC (08/26/2019 10:35 PM PST) + +---------+ + + + | Component | Value | Ref Range | Performed | Pathologist | | | | | At | Signature | + +---------+ + + + | BLOOD | 199 (H) | 70 - 99 mg/dL | [facility] | | | GLU[facility], | | | [facility] | | | POC | | | [facility] | | | | | | [facility] | | | | | | TESTS | | + +---------+ + + + + + | Specimen | + + | Blood | + + + + + + + | Performing | Address | City/State/Zipcode | Phone Number | | Organization | | | | + + + + + | [facility] | [address] | [place], [place] | | | [facility] | [address] | [address] | | | TESTS | | | | + + + + + CAPILLARY BLOOD GLUCOSE (NO CHG), POC (08/26/2019 6:55 PM PST) + +---------+ + + + | Component | Value | Ref Range | Performed | Pathologist | | | | | At | Signature | + +---------+ + + + | BLOOD | 183 (H) | 70 - 99 mg/dL | [facility] | | | GLU[facility], | | | [facility] | | | POC | | | [facility] | | | | | | [facility] CARE | | | | | | TESTS | | + +---------+ + + + + + | Specimen | + + | Blood | + + + + + + + | Performing | Address | City/State/Zipcode | Phone Number | | Organization | | | | + + + + + | [facility] | [address] | [place], [place] | | | [facility] | [address] | [phone] | | | TESTS | | | | + + + + + CAPILLARY BLOOD GLUCOSE (NO CHG), POC (08/26/2019 12:02 PM PST) + +---------+ + + + | Component | Value | Ref Range | Performed | Pathologist | | | | | At | Signature | + +---------+ + + + | BLOOD | 201 (H) | 70 - 99 mg/dL | [facility] | | | GLU[facility], | | | [facility] | | | POC | | | [facility] | | | | | | OF CARE | | | | | | TESTS | | + +---------+ + + + + + | Specimen | + + | Blood | + + + + + + + | Performing | Address | City/State/Zipcode | Phone Number | | Organization | | | | + + + + + | [facility] | [address] | [place], [place] | | | [facility] | [address] | [address] | | | TESTS | | | | + + + + + IR TUNNELED CENTRAL LINE PLACEMENT (08/26/2019 9:12 AM PST) + + | Specimen | + + | | + + + + + | Narrative | Performed At | + + + | Procedure: Left Chest Tunneled Dialysis Catheter Placement | [facility] | | Primary trend investigator: Rcih Mena MD [employer] attending | RADIOLOGY VOICE | | trend investigator: Kannan Pizano MD Preoperative diagnosis: Acute on | RECOGNITION 2 | | chronic kidney injury requiring hemodialysis Postoperative | | | diagnosis: Same Operations: Operation 1. Ultrasound guided | | | puncture left internal jugular vein. Operation 2. Antegrade | | | tunneling of central venous catheter on left anterior chest wall. | | | Operation 3. Insertion of 14.5 F dual lumen central venous catheter | | | into the SVC. Indications: 54-year-old male with alcoholic | | | cirrhosis status post liver transplant, complicated by acute on | | | chronic kidney failure requiring hemodialysis. Procedure: The | | | patient, procedure, and allergies were confirmed in the presence of | | | the patient by the attending.The attending physician was present for | | | the entire procedure. Written informed consent was obtained in a PARQ | | | conference with the patient. The procedure was performed with | | | moderate sedation. The patient was prepped and draped in the usual | | | manner. US was performed to evaluate and select vascular access and | | | an image recorded and archived documenting patency. Realtime US was | | | utilized for visualization of needle entry into the left internal | | | jugular vein. A 21 g needle was advanced into the vein followed by a | | | 0.018" wire. The needle was exchanged for a 5F micropuncture sheath. A | | | 0.035" wire was eventually advanced into the IVC using a KMP | | | catheter. The micropuncture sheath was exchanged for a peel away | | | sheath. Local anesthetic was administered to the right anterior chest | | | wall and the catheter tunneled in antegrade fashion utilizing sharp | | | and blunt technique. The 14.5 F dual lumen central venous catheter | | | was then inserted through the sheath and positioned with its tip at | | | the mid right atrium with fluoroscopy. The hubs were connected and | | | the catheter was flushed. The neck incision was closed with 4-0 | | | resorbable suture and glue. The catheter was sutured in place at skin | | | exit site with a vertical mattress suture. A dry sterile dressing | | | was applied. A digital radiograph was obtained at the end of the case. | | | Fluoroscopy time: 3.9 min Total contrast: 0 ml Moderate | | | sedation was directly supervised by the attending physician and | | | administered by the dedicated RN. Intra-service [id number]-zk-[id number] time: 75 | | | minutes Versed 2 mg [id number] mcg Findings: US | | | demonstrated the left internal jugular vein is patent. Successful | | | placement of 14.5 F dual lumen central venous catheter via left | | | internal jugular vein access with tip at the cavo-atrial junction in | | | tunneled fashion. Impression: 1. Patent left internal | | | jugular vein. 2. Placement of 14.5 F dual lumen central venous | | | catheter tunneled fashion via leftinternal jugular vein. 3. | | | Catheter tip is in the right atrium and is ready for immediate use. | | | 4. No evidence of pneumothorax on completion digital image. | | | I have personally reviewed the images and, if necessary, edited the | | | report. I agree with the report as now presented. Final | | | signature: Kannan Pizano MD 08/26/2019 2:32 PM Preliminary: | | | Kannan Pizano MD Dictation initiated: Kannan Pizano MD | | | 08/26/2019 2:23 PM | | + + + + + | Procedure Note | + + | Service Account, Radiant Res In Interface - 08/26/2019 2:33 PM PST Procedure: Left | | Chest Tunneled Dialysis Catheter Placement Primary trend investigator: Rich Mena MD | | Silverware Buffer attending trend investigator: Kannan Pizano MD Preoperative diagnosis: Acute on | | chronic kidney injury requiring hemodialysis Postoperative diagnosis: Same Operations: | | Operation 1. Ultrasound guided puncture left internal jugular vein. Operation 2. | | Antegrade tunneling of central venous catheter on left anterior chest wall. Operation 3. | | Insertion of 14.5 F dual lumen central venous catheter into the SVC. Indications: | | 54-year-old male with alcoholic cirrhosis status post liver transplant, complicated by | | acute on chronic kidney failure requiring hemodialysis. Procedure: The patient, | | procedure, and allergies were confirmed in the presence of the patient by the | | attending.The attending physician was present for the entire procedure. Written informed | | consent was obtained in a PARQ conference with the patient. The procedure was | | performed with moderate sedation. The patient was prepped and draped in the usual | | manner. US was performed to evaluate and select vascular access and an image recorded | | and archived documenting patency. Realtime US was utilized for visualization of needle | | entry into the left internal jugular vein. A 21 g needle was advanced into the vein | | followed by a 0.018" wire. The needle was exchanged for a 5F micropuncture sheath. A | | 0.035" wire was eventually advanced into the IVC using a KMP catheter. The micropuncture | | sheath was exchanged for a peel away sheath. Local anesthetic was administered to the | | right anterior chest wall and the catheter tunneled in antegrade fashion utilizing sharp | | and blunt technique. The 14.5 F dual lumen central venous catheter was then inserted | | through the sheath and positioned with its tip at the mid right atrium with fluoroscopy. | | The hubs were connected and the catheter was flushed. The neck incision was closed | | with 4-0 resorbable suture and glue. The catheter was sutured in place at skin exit site | | with a vertical mattress suture. A dry sterile dressing was applied. A digital | | radiograph was obtained at the end of the case. Fluoroscopy time: 3.9 minTotal | | contrast: 0 ml Moderate sedation was directly supervised by the attending physician and | | administered by the dedicated RN.Intra-service wmbj-jv-idwm time: 75 minutesVersed 2 | | [id number] mcg Findings: US demonstrated the left internal jugular vein is patent. | | Successful placement of 14.5 F dual lumen central venous catheter via left internal | | jugular vein access with tip at the cavo-atrial junction in tunneled fashion. | | Impression: 1. Patent left internal jugular vein. 2. Placement of 14.5 F dual lumen | | central venous catheter tunneled fashion via leftinternal jugular vein. 3. Catheter tip | | is in the right atrium and is ready for immediate use. 4. No evidence of pneumothorax | | on completion digital image. I have personally reviewed the images and, if necessary, | | edited the report. I agree with the report as now presented. Final signature: Kannan | | MD Harinder 08/26/2019 2:32 PM Preliminary: Kannan Pizano MD Dictation initiated: | | Kannan Pizano MD 08/26/2019 2:23 PM | |Intra-service hwzw-hv-qida time: 75 minutes | |Versed 2 mg | |[id number] mcg | | | |Findings: | | | |US demonstrated the left internal jugular vein is patent. | | | |Successful placement of 14.5 F dual lumen central venous catheter via left internal jugula r vein access with tip at the cavo-atrial junction in tunneled fashion. | | | |Impression: | | | |1. Patent left internal jugular vein. | | | |2. Placement of 14.5 F dual lumen central venous catheter tunneled fashion via leftinternal jugular vein. | | | |3. Catheter tip is in the right atrium and is ready for immediate use. | | | |4. No evidence of pneumothorax on completion digital image. | | | |I have personally reviewed the images and, if necessary, edited the report. I agree with th e report as now presented. | | | |Final signature: Kannan Pizano MD 08/26/2019 2:32 PM | |Preliminary: Kannan Pizano MD | |Dictation initiated: Kannan Pizano MD 08/26/2019 2:23 PM | + + + +---------+ + + | Performing | Address | City/State/Zipcode | Phone Number | | Organization | | | | + +---------+ + + | [facility] | | | | | VOICE RECOGNITION 2 | | | | + +---------+ + + CAPILLARY BLOOD GLUCOSE (NO CHG)MAUREEN (08/26/2019 7:42 AM PST) + +---------+ + + + | Component | Value | Ref Range | Performed | Pathologist | | | | | At | Signature | + +---------+ + + + | BLOOD | 200 (H) | 70 - 99 mg/dL | [facility] | | | GLUCOSE, | | | [facility] | | | POC | | | [facility] | | | | | | OF CARE | | | | | | TESTS | | + +---------+ + + + + + | Specimen | + + | Blood | + + + + + + + | Performing | Address | City/State/Zipcode | Phone Number | | Organization | | | | + + + + + | [facility] | [address] | [place], [place] | | | [facility] | [address] | [address] | | | TESTS | | | | + + + + + CBC AND AUTO DIFF (08/26/2019 6:12 AM PST) + + + + + + | Component | Value | Ref Range | Performed | Pathologist | | | | | At | Signature | + + + + + + | WHITE CELL | 4.58 | 3.50 - 10.80 | [facility] | | | COUNT | | K/cu mm | LABORATORY | | | | | | SERVICES, | | | | | | CORE | | + + + + + + | RED CELL | 2.52 (L) | 4.50 - 6.00 | [facility] | | | COUNT | | M/cu mm | LABORATORY | | | | | | SERVICES, | | | | | | CORE | | + + + + + + | HEMOGLOBIN | 8.1 (L) | 13.5 - 17.5 | [facility] | | | | | g/dL | LABORATORY | | | | | | SERVICES, | | | | | | CORE | | + + + + + + | HEMATOCRIT | 25.0 (L) | 41.0 - 53.0 % | [...] + + + + | MCHC | 32.4 | 32.0 - 36.0 | [facility] | | | | | g/dL | LABORATORY | | | | | | SERVICES, | | | | | | CORE | | + + + + + + | RDW SD | 61.6 (H) | 35.1 - 46.3 fL | [facility] | | | | | | LABORATORY | | | | | | SERVICES, | | | | | | CORE | | + + + + + + | PLATELET | 82 (L) | 150 - 400 K/cu | [facility] | | | COUNT | | mm | LABORATORY | | | | | | SERVICES, | | | | | | CORE | | + + + + + + | MPV | 9.4 (L) | 9.7 - 12.3 fL | [...] + + + + | NEUTROPHIL | 69.0 | 50.0 - 70.0 % | [facility] | | | % | | | LABORATORY | | | | | | SERVICES, | | | | | | CORE | | + + + + + + | LYMPHOCYTE | 19.4 | 18.0 - 42.0 % | [facility] | | | % | | | LABORATORY | | | | | | SERVICES, | | | | | | CORE | | + + + + + + | MONOCYTE % | 7.2 | 3.5 - 9.0 % | [facility] [...] + + + + | IG% | 0.9 | 0.0 - 1.0 % | [facility] | | | | | | LABORATORY | | | | | | SERVICES, | | | | | | CORE | | + + + + + + | NEUTROPHIL | 3.16 | 1.80 - 7.70 | [facility] | | | # | | K/cu mm | LABORATORY | | | | | | SERVICES, | | | | | | CORE | | + + + + + + | LYMPHOCYTE | 0.89 (L) | 1.00 - 4.80 | [facility] | | | # | | K/cu mm | LABORATORY | | | | | | SERVICES, | | | | | | CORE | | + + + + + + | MONOCYTE # | 0.33 | 0.10 - 0.90 | [facility] | | | | | K/cu mm | LABORATORY | | | | | | SERVICES, | | | | | | CORE | | + + + + + + | EOS # | 0.14 | 0.00 - 0.50 | [facility] | [...] [facility] | [address] | [place] [address] | | | SERVICES, CORE | [address] | | | + + + + + INR (08/26/2019 6:12 AM PST) + + + + + + | Component | Value | Ref Range | Performed | Pathologist | | | | | At | Signature | + + + + + + | INR | 1.24 (H) | 0.90 - 1.20 INR | [...] + | [facility] | [address] | [place] [address] | | | SERVICES, CORE | [address] | | | + + + + + TACROLIMUS, WHOLE BLOOD (08/26/2019 6:12 AM PST) + + + + + + | Component | Value | Ref Range | Performed | Pathologist | | | | | At | Signature | + + + + + + | TACROLIMUS | 5.4Comment: Begin POD #1 | 5.0 - 15.0 | [facility] | | | ([address]) | | ng/mL | LABORATORY | | | | | | SERVICES, | | | | | | SPECIAL IMM | | | | | | + COAG | | + + + + + + + + | Specimen | + + | Blood - Blood | | (substance) | + + + + + | Narrative | Performed At | + + + | Test performed by immunoassay using [employer]af[employer] Child And Adolescent Psychologist i2000. . | [facility] | | Samples [...] | + + + + + | [facility] | [address] | [place] [address] | | | SERVICES, SPECIAL | [address] | | | | IMM + COAG | | | | + + + + + AMYLASE, PLASMA (08/26/2019 6:12 AM PST) + +--------+ + + + | Component | Value | Ref Range | Performed | Pathologist | | | | | At | Signature | + +--------+ + + + | AMYLASE,EZEQUIEL | 18 (L) | 25 - 115 U/L | [facility] | | | SMA | | | LABORATORY | | | | | | SERVICES, | | | | | | CORE | | + +--------+ + + + + + | Specimen | + + | Blood - Blood | | (substance) | + + + + + + + | Performing | Address | City/State/Zipcode | Phone Number | | Organization | | | | + + + + + | [facility] | [address] | [place] [address] | | | SERVICES, CORE | [address] | | | + + + + + LDH TOTAL, PLASMA (08/26/2019 6:12 AM PST) + +---------+ + + + | Component | Value | Ref Range | Performed | Pathologist | | | | | At | Signature | + +---------+ + + + | LD TOTAL, | 210 | <=250 U/L | [facility] | | | PLASMA | | | LABORATORY | | | | | | SERVICES, | | | | | | CORE | | + +---------+ + + + | LD CMNT | No Hemo | | [facility] [...] + | [facility] | [address] | [place] [address] | | | SERVICES, CORE | [address] | | | + + + + + PHOSPHORUS, PLASMA (08/26/2019 6:12 AM PST) + +-------+ + + + | Component | Value | Ref Range | Performed | Pathologist | | | | | At | Signature | + +-------+ + + + | PHOSPHORUS, | 4.5 | 2.4 - 4.7 mg/dL | [facility] [...] | + + + + + | [facility] | [address] | [place] [address] | | | SERVICES, CORE | [address] | | | + + + + + MAGNESIUM, PLASMA (08/26/2019 6:12 AM PST) + +-------+ + + + | Component | Value | Ref Range | Performed | Pathologist | | | | | At | Signature | + +-------+ + + + | MAGNESIUM,P | 2.0 | 1.6 - 2.6 mg/dL | [facility] [...] + | [facility] | [address] | [place] [address] | | | SERVICES, CORE | [address] | | | + + + + + COMPLETE METABOLIC SET (NA,K,CL,CO2,BUN,CREAT,GLUC,CA,AST,ALT,BILI TOTAL,ALK PHOS,ALB,PROT TOTAL) (08/26/2019 6:12 AM PST) + + + + + + | Component | Value | Ref Range | Performed | Pathologist | | | | | At | Signature | + + + + + + | GLUCOSE, | 221 (H) | 70 - 99 mg/dL | [facility] | | | PLASMA | | | LABORATORY | | | (LAB) | | | SERVICES, | | | | | | CORE | | + + + + + + | BUN, PLASMA | 71 (H) | 6 - 20 mg/dL | [facility] | | | (LAB) | | | LABORATORY | | | | | | SERVICES, | | | | | | CORE | | + + + + + + | CREATININE | 2.30 (H) | 0.70 - 1.30 | [facility] | | | PLASMA | | mg/dL | LABORATORY | | | (LAB) | | | SERVICES, | | | | | | CORE | | + + + + + + | EGFR | 36 (L) | >60 mL/min | [facility] | | | - | | | LABORATORY | | | TURKISH | | | SERVICES, | | | | | | CORE | | + + + + + + | EGFR NON | 30 (L) | >60 mL/min | [facility] | | | -JARRED | | | LABORATORY | | | RICAN | | | SERVICES, | | | | | | CORE | | + + + + + + | SODIUM, | 136 | 136 - 145 | [facility] | [...] + + + + | CHLORIDE, | 104 | 97 - 108 mmol/L | [facility] [...] + + + + | CALCIUM, | 8.4 (L) | 8.6 - 10.2 | [facility] | | | PLASMA | | mg/dL | LABORATORY | | | (LAB) | | | SERVICES, | | | | | | CORE | | + + + + + + | CALCIUM(ALB | 8.6 | 8.6 - 10.2 | [facility] | | | CORRECTED) | | mg/dL | LABORATORY | | | | | | SERVICES, | | | | | | CORE | | + + + + + + | BILIRUBIN | 1.1 | 0.3 - 1.2 mg/dL | [facility] [...] + + + | ALK PHOS | 37 (L) | 53 - 128 U/L | [facility] | | | | | | LABORATORY | | | | | | SERVICES, | | | | | | CORE | | + + + + + + | AST(SGOT) | 9 | <=41 U/L | [facility] | | | | | | LABORATORY | | | | | | SERVICES, | | | | | | CORE | | + + + + + + | ALT (SGPT) | 37 | <=60 U/L | [facility] | | [...] MDRD equation recommended by the National | [facility] | | Kidney Disease Education Program. Estimated [...] | + + + + + | [facility] | [address] | [place] [address] | | | CLAUDIA, ARTIS | [address] | | | + + + + + CARDIOLOGY (08/26/2019 12:00 AM PST) + + + | Narrative | Performed At | + + + | | | + + + CAPILLARY BLOOD GLUCOSE (NO CHG), POC (08/25/2019 9:31 PM PST) + +---------+ + + + | Component | Value | Ref Range | Performed | Pathologist | | | | | At | Signature | + +---------+ + + + | BLOOD | 160 (H) | 70 - 99 mg/dL | [facility] | | | GLUCOSE, | | | [facility] | | | POC | | | [facility] | | | | | | OF CARE | | | | | | TESTS | | + +---------+ + + + + + | Specimen | + + | Blood | + + + + + + + | Performing | Address | City/State/Zipcode | Phone Number | | Organization | | | | + + + + + | [facility] | [address] | [place], [place] | | | [facility] | [facility] | [address] | | | TESTS | | | | + + + + + CAPILLARY BLOOD GLUCOSE (NO CHG), POC (08/25/2019 6:57 PM PST) + +---------+ + + + | Component | Value | Ref Range | Performed | Pathologist | | | | | At | Signature | + +---------+ + + + | BLOOD | 144 (H) | 70 - 99 mg/dL | [facility] | | | GLUCOSE, | | | [facility] | | | POC | | | [place] | | | | | | OF CARE | | | | | | TESTS | | + +---------+ + + + + + | Specimen | + + | Blood | + + + + + + + | Performing | Address | City/State/Zipcode | Phone Number | | Organization | | | | + + + + + | [facility] | [address] | [place], [place] | | | [facility] | [address] | [phone] | | | TESTS | | | | + + + + + CAPILLARY BLOOD GLUCOSE (NO CHG), POC (08/25/2019 1:58 PM PST) + +---------+ + + + | Component | Value | Ref Range | Performed | Pathologist | | | | | At | Signature | + +---------+ + + + | BLOOD | 117 (H) | 70 - 99 mg/dL | [facility] | | | GLUCOSE, | | | [facility] | | | POC | | | [facility] | | | | | | OF CARE | | | | | | TESTS | | + +---------+ + + + + + | Specimen | + + | Blood | + + + + + + + | Performing | Address | City/State/Zipcode | Phone Number | | Organization | | | | + + + + + | [facility] | [address] | [place], [place] | | | [facility] | [address] | [phone] | | | TESTS | | | | + + + + + CAPILLARY BLOOD GLUCOSE (NO CHG), POC (08/25/2019 7:37 AM PST) + +---------+ + + + | Component | Value | Ref Range | Performed | Pathologist | | | | | At | Signature | + +---------+ + + + | BLOOD | 206 (H) | 70 - 99 mg/dL | [facility] | | | GLUCOSE, | | | [facility] | | | POC | | | [facility] | | | | | | OF CARE | | | | | | TESTS | | + +---------+ + + + + + | Specimen | + + | Blood | + + + + + + + | Performing | Address | City/State/Zipcode | Phone Number | | Organization | | | | + + + + + | [facility] | [address] | [place], [place] | | | [facility] | [address] | [phone] | | | TESTS | | | | + + + + + CBC AND AUTO DIFF (08/25/2019 6:32 AM PST) + + + + + + | Component | Value | Ref Range | Performed | Pathologist | | | | | At | Signature | + + + + + + | WHITE CELL | 5.47 | 3.50 - 10.80 | [facility] | | | COUNT | | K/cu mm | LABORATORY | | | | | | SERVICES, | | | | | | CORE | | + + + + + + | RED CELL | 2.49 (L) | 4.50 - 6.00 | [facility] | | | COUNT | | M/cu mm | LABORATORY | | | | | | SERVICES, | | | | | | CORE | | + + + + + + | HEMOGLOBIN | 8.2 (L) | 13.5 - 17.5 | [facility] | | | | | g/dL | LABORATORY | | | | | | SERVICES, | | | | | | CORE | | + + + + + + | HEMATOCRIT | 24.5 (L) | 41.0 - 53.0 % | [facility] | | | | | | LABORATORY | | | | | | SERVICES, | | | | | | CORE | | + + + + + + | MCV | 98.4 | 80.0 - 100.0 fL | [facility] | | | | | | LABORATORY | | | | | | SERVICES, | | | | | | CORE | | + + + + + + | MCHC | 33.5 | 32.0 - 36.0 | [facility] | | | | | g/dL | LABORATORY | | | | | | SERVICES, | | | | | | CORE | | + + + + + + | RDW SD | 60.0 (H) | 35.1 - 46.3 fL | [facility] | | | | | | LABORATORY | | | | | | SERVICES, | | | | | | CORE | | + + + + + + | PLATELET | 67 (L) | 150 - 400 K/cu | [facility] | | | COUNT | | mm | LABORATORY | | | | | | SERVICES, | | | | | | CORE | | + + + + + + | MPV | 9.6 (L) | 9.7 - 12.3 fL | [...] + + + + | NEUTROPHIL | 76.1 (H) | 50.0 - 70.0 % | [facility] | | | % | | | LABORATORY | | | | | | SERVICES, | | | | | | CORE | | + + + + + + | LYMPHOCYTE | 14.1 (L) | 18.0 - 42.0 % | [facility] | | | % | | | LABORATORY | | | | | | SERVICES, | | | | | | CORE | | + + + + + + | MONOCYTE % | 6.0 | 3.5 - 9.0 % | [facility] | | | | | | LABORATORY | | | | | | SERVICES, | | | | | | CORE | | + + + + + + | EOS % | 2.9 | 1.0 - 3.0 % | [facility] | | | | | | LABORATORY | | | | | | SERVICES, | | | | | | CORE | | + + + + + + | BASO % | 0.2 | 0.0 - 2.0 % | [facility] [...] + + + + | NEUTROPHIL | 4.16 | 1.80 - 7.70 | [facility] | | | # | | K/cu mm | LABORATORY | | | | | | SERVICES, | | | | | | CORE | | + + + + + + | LYMPHOCYTE | 0.77 (L) | 1.00 - 4.80 | [facility] | | | # | | K/cu mm | LABORATORY | | | | | | SERVICES, | | | | | | CORE | | + + + + + + | MONOCYTE # | 0.33 | 0.10 - 0.90 | [facility] | | | | | K/cu mm | LABORATORY | | | | | | SERVICES, | | | | | | CORE | | + + + + + + | EOS # | 0.16 | 0.00 - 0.50 | [facility] | | | | | K/cu mm | LABORATORY | | | | | | SERVICES, | | | | | | CORE | | + + + + + + | BASO # | 0.01 | 0.00 - 0.10 | [...] | + + + + + | [facility] | [address] | [place] [address] | | | SERVICES, CORE | [address] | | | + + + + + INR (08/25/2019 6:32 AM PST) + + + + + + | Component | Value | Ref Range | Performed | Pathologist | | | | | At | Signature | + + + + + + | INR | 1.36 (H) | 0.90 - 1.20 INR | [facility] | | | | | | LABORATORY [...] | + + + + + | [facility] | [address] | [place] [address] | | | SERVICES, CORE | [address] | | | + + + + + TACROLIMUS, WHOLE BLOOD (08/25/2019 6:32 AM PST) + + + + + + | Component | Value | Ref Range | Performed | Pathologist | | | | | At | Signature | + + + + + + | TACROLIMUS | 6.1Comment: Begin POD #1 | 5.0 - 15.0 | [facility] | | | ([address]) | | ng/mL | LABORATORY | | | | | | SERVICES, | | | | | | SPECIAL IMM | | | | | | + COAG | | + + + + + + + + | Specimen | + + | Blood - Blood | | (substance) | + + + + + | Narrative | Performed At | + + + | Test performed by immunoassay using Palaf[employer] Child And Adolescent Psychologist i2000. . | [facility] | | Samples [...] | + + + + + | [facility] | [address] | [place] [address] | | | SERVICES, SPECIAL | [address] | | | | IMM + COAG | | | | + + + + + AMYLASE, PLASMA (08/25/2019 6:32 AM PST) + +--------+ + + + | Component | Value | Ref Range | Performed | Pathologist | | | | | At | Signature | + +--------+ + + + | AMYLASE,EZEQUIEL | 14 (L) | 25 - 115 U/L | [facility] | | | SMA | | | LABORATORY | | | | | | SERVICES, | | | | | | CORE | | + +--------+ + + + + + | Specimen | + + | Blood - Blood | | (substance) | + + + + + + + | Performing | Address | City/State/Zipcode | Phone Number | | Organization | | | | + + + + + | [facility] | [address] | [place] [address] | | | CLAUDAI, CORE | [address] | | | + + + + + LDH TOTAL, PLASMA (08/25/2019 6:32 AM PST) + +---------+ + + + | Component | Value | Ref Range | Performed | Pathologist | | | | | At | Signature | + +---------+ + + + | LD TOTAL, | 193 | <=250 U/L | [facility] | | | PLASMA | | | LABORATORY | | | | | | SERVICES, | | | | | | CORE | | + +---------+ + + + | LD CMNT | No Hemo | | [facility] [...] + | [facility] | [address] | [place] [address] | | | SERVICES, CORE | [address] | | | + + + + + PHOSPHORUS, PLASMA (08/25/2019 6:32 AM PST) + +---------+ + + + | Component | Value | Ref Range | Performed | Pathologist | | | | | At | Signature | + +---------+ + + + | PHOSPHORUS, | 5.4 (H) | 2.4 - 4.7 mg/dL | [facility] [...] | + + + + + | [facility] | [address] | [place] [address] | | | SERVICES, CORE | [address] | | | + + + + + MAGNESIUM, PLASMA (08/25/2019 6:32 AM PST) + +-------+ + + + | Component | Value | Ref Range | Performed | Pathologist | | | | | At | Signature | + +-------+ + + + | MAGNESIUM,P | 2.1 | 1.6 - 2.6 mg/dL | [facility] [...] | + + + + + | [facility] | [address] | [place] [address] | | | SERVICES, CORE | [address] | | | + + + + + COMPLETE METABOLIC SET (NA,K,CL,CO2,BUN,CREAT,GLUC,CA,AST,ALT,BILI TOTAL,ALK PHOS,ALB,PROT TOTAL) (08/25/2019 6:32 AM PST) + + + + + + | Component | Value | Ref Range | Performed | Pathologist | | | | | At | Signature | + + + + + + | GLUCOSE, | 238 (H) | 70 - 99 mg/dL | [facility] | | | PLASMA | | | LABORATORY | | | (LAB) | | | SERVICES, | | | | | | CORE | | + + + + + + | BUN, PLASMA | 103 (H) | 6 - 20 mg/dL | [facility] | | | (LAB) | | | LABORATORY | | | | | | SERVICES, | | | | | | CORE | | + + + + + + | CREATININE | 2.61 (H) | 0.70 - 1.30 | [facility] | | | PLASMA | | mg/dL | LABORATORY | | | (LAB) | | | SERVICES, | | | | | | CORE | | + + + + + + | EGFR | 31 (L) | >60 mL/min | [facility] | | | - | | | LABORATORY | | | [place] | | | SERVICES, | | | | | | CORE | | + + + + + + | EGFR NON | 26 (L) | >60 mL/min | [facility] | | | -[facility]ARRED | | | LABORATORY | | | RICAN | | | SERVICES, | | | | | | CORE | | + + + + + + | SODIUM, | 136 | 136 - 145 | [facility] | | | PLASMA | | mmol/L | LABORATORY | | | (LAB) | | | SERVICES, | | | | | | CORE | | + + + + + + | POTASSIUM, | 4.7 | 3.4 - 5.0 | [facility] | [...] + + + | TOTAL CO2, | 24 | 21 - 32 mmol/L | [facility] | | | PLASMA | | | LABORATORY | | | (LAB) | | | SERVICES, | | | | | | CORE | | + + + + + + | CALCIUM, | 8.3 (L) | 8.6 - 10.2 | [facility] | | | PLASMA | | mg/dL | LABORATORY | | | (LAB) | | | SERVICES, | | | | | | CORE | | + + + + + + | CALCIUM(ALB | 8.5 (L) | 8.6 - 10.2 | [facility] | | | CORRECTED) | | mg/dL | LABORATORY | | | | | | SERVICES, | | | | | | CORE | | + + + + + + | BILIRUBIN | 1.0 | 0.3 - 1.2 mg/dL | [facility] | | | TOTAL | | | LABORATORY | | | | | | SERVICES, | | | | | | CORE | | + + + + + + | TOTAL | 5.6 (L) | 6.4 - 8.2 g/dL | [...] + + + | ALK PHOS | 33 (L) | 53 - 128 U/L | [facility] | | | | | | LABORATORY | | | | | | SERVICES, | | | | | | CORE | | + + + + + + | AST(SGOT) | 9 | <=41 U/L | [facility] | | | | | | LABORATORY | | | | | | SERVICES, | | | | | | CORE | | + + + + + + | ALT (SGPT) | 40 | <=60 U/L | [facility] | | [...] | + + + + + | [facility] | [address] | [place] [address] | | | SERVICES, CORE | [address] | | | + + + + + COAGULOPATHY PANEL (INR,APTT,FIBRINOGEN) (08/25/2019 1:15 AM PST) + + + + + + | Component | Value | Ref Range | Performed | Pathologist | | | | | At | Signature | + + + + + + | INR | 1.41 (H) | 0.90 - 1.20 INR | [facility] | | | | | | LABORATORY | | | | | | CLAUDIA, | | | | | | CORE | | + + + + + + | APTT | 30.9 | 26.0 - 36.0 | [facility] | | | | | seconds | LABORATORY | | | | | | SERVICES, | | | | | | CORE | | + + + + + + | FIBRINOGEN | 185 | 150 - 450 mg/dL | [facility] | | | LEVEL | | | LABORATORY | | | [...] Therapeutic ranges for full anticoagulation: INR for | [facility] | | Venous Thromboembolism (2.0 - 3.0) INR INR for | LABORATORY | | most patients with mech. valves (2.5 - 3.5) INR APTT values for | SERVICES, CORE | | monitoring heparin therapy may be affected by specimens processed >1 | | | hour after collection. APTT Therapeutic Range: | | | (75 - 120) sec Heparin levels of 0.35 - 0.7 U/mL | | | | | + + + + + + + + | Performing | Address | City/State/Zipcode | Phone Number | | Organization | | | | + + + + + | [facility] | [address] | [place] [address] | | | SERVICES, CORE | [address] | | | + + + + + CARDIOLOGY (08/25/2019 12:00 AM PST) + + + | Narrative | Performed At | + + + | | | + + + ANTIBODY SCREEN (08/24/2019 11:25 PM PST) + + + + + + | Component | Value | Ref Range | Performed | Pathologist | | | | | At | Signature | + + + + + + | Antibody | Negative | | [facility] | | | Screen | | | LABORATORY | | | | | | SERVICES, | | | | | | TRANSFUSION | | | | | | MEDICINE | | + + + + + + + + | Specimen | + + | Blood - Blood | | (substance) | + + + + + + + | Performing | Address | City/State/Zipcode | Phone Number | | Organization | | | | + + + + + | [facility] | [address] | [place] [address] | | | SERVICES, | [address] | | | | TRANSFUSION MEDICINE | | | | + + + + + ABO & RH TYPE (08/24/2019 11:25 PM PST) + + + + + + | Component | Value | Ref Range | Performed | Pathologist | | | | | At | Signature | + + + + + + | ABO Group | A | | [facility] | | | | | | LABORATORY | | | | | | SERVICES, | | | | | | TRANSFUSION | | | | | | MEDICINE | | + + + + + + | Rh Type | Positive | | [facility] | | | | | | LABORATORY | | | | | | SERVICES, | | | | | | TRANSFUSION | | | | | | MEDICINE | | + + + + + + + + | Specimen | + + | Blood - Blood | | (substance) | + + + + + + + | Performing | Address | City/State/Zipcode | Phone Number | | Organization | | | | + + + + + | [facility] | [address] | [place] [address] | | | SERVICES, | [address] | | | | TRANSFUSION MEDICINE | | | | + + + + + CBC (HEMOGRAM) ONLY (08/24/2019 11:23 PM PST) + + + + + + | Component | Value | Ref Range | Performed | Pathologist | | | | | At | Signature | + + + + + + | WHITE CELL | 5.54 | 3.50 - 10.80 | [facility] | | | COUNT | | K/cu mm | LABORATORY | | | | | | SERVICES, | | | | | | CORE | | + + + + + + | RED CELL | 2.51 (L) | 4.50 - 6.00 | [facility] [...] + + + + | HEMATOCRIT | 24.7 (L) | 41.0 - 53.0 % | [facility] | | | | | | LABORATORY | | | | | | SERVICES, | | | | | | CORE | | + + + + + + | MCV | 98.4 | 80.0 - 100.0 fL | [facility] | | | | | | LABORATORY | | | | | | SERVICES, | | | | | | CORE | | + + + + + + | MCHC | 33.6 | 32.0 - 36.0 | [facility] | | | | | g/dL | LABORATORY | | | | | | SERVICES, | | | | | | CORE | | + + + + + + | RDW SD | 58.2 (H) | 35.1 - 46.3 fL | [facility] | | | | | | LABORATORY | | | | | | SERVICES, | | | | | | CORE | | + + + + + + | PLATELET | 60 (L) | 150 - 400 K/cu | [facility] | | | COUNT | | mm | LABORATORY | | | | | | SERVICES, | | | | | | CORE | | + + + + + + | MPV | 9.5 (L) | 9.7 - 12.3 fL | [...] + | [facility] | [address] | [place] [address] | | | SERVICES, CORE | [address] | | | + + + + + CAPILLARY BLOOD GLUCOSE (NO CHG), POC (08/24/2019 9:33 PM PST) + +---------+ + + + | Component | Value | Ref Range | Performed | Pathologist | | | | | At | Signature | + +---------+ + + + | BLOOD | 308 (H) | 70 - 99 mg/dL | [facility] | | | GLUCOSE, | | | [facility] | | | POC | | | [facility] | | | | | | OF CARE | | | | | | TESTS | | + +---------+ + + + + + | Specimen | + + | Blood | + + + + + + + | Performing | Address | City/State/Zipcode | Phone Number | | Organization | | | | + + + + + | [facility] | [address] | [place], [place] | | | [facility] | [address] | [address] | | | TESTS | | | | + + + + + CAPILLARY BLOOD GLUCOSE (NO CHG), POC (08/24/2019 7:02 PM PST) + +---------+ + + + | Component | Value | Ref Range | Performed | Pathologist | | | | | At | Signature | + +---------+ + + + | BLOOD | 334 (H) | 70 - 99 mg/dL | [facility] - | | | GLUCOSE, | | | [facility] | | | POC | | | [facility] | | | | | | OF CARE | | | | | | TESTS | | + +---------+ + + + + + | Specimen | + + | Blood | + + + + + + + | Performing | Address | City/State/Zipcode | Phone Number | | Organization | | | | + + + + + | [facility] | [address] | [place], [place] | | | [facility] | [address] | [address] | | | TESTS | | | | + + + + + CAPILLARY BLOOD GLUCOSE (NO CHG), POC (08/24/2019 4:07 PM PST) + +---------+ + + + | Component | Value | Ref Range | Performed | Pathologist | | | | | At | Signature | + +---------+ + + + | BLOOD | 309 (H) | 70 - 99 mg/dL | [facility] | | | GLUCOSE, | | | [facility] | | | POC | | | [facility] | | | | | | OF CARE | | | | | | TESTS | | + +---------+ + + + + + | Specimen | + + | Blood | + + + + + + + | Performing | Address | City/State/Zipcode | Phone Number | | Organization | | | | + + + + + | [facility] | [address] | [place] | | | [facility] | [address] | [address] | | | TESTS | | | | + + + + + CAPILLARY BLOOD GLUCOSE (NO CHG), POC (08/24/2019 1:38 PM PST) + +---------+ + + + | Component | Value | Ref Range | Performed | Pathologist | | | | | At | Signature | + +---------+ + + + | BLOOD | 198 (H) | 70 - 99 mg/dL | [facility] | | | GLUCOSE, | | | [facility] | | | POC | | | [facility] | | | | | | OF CARE | | | | | | TESTS | | + +---------+ + + + + + | Specimen | + + | Blood | + + + + + + + | Performing | Address | City/State/Zipcode | Phone Number | | Organization | | | | + + + + + | [facility] | [address] | [place], [place] | | | [facility] | [address] | [address] | | | TESTS | | | | + + + + + CAPILLARY BLOOD GLUCOSE (NO CHG), POC (08/24/2019 10:01 AM PST) + +---------+ + + + | Component | Value | Ref Range | Performed | Pathologist | | | | | At | Signature | + +---------+ + + + | BLOOD | 209 (H) | 70 - 99 mg/dL | [facility] - | | | GLUCOSE, | | | [facility] | | | POC | | | [facility] | | | | | | OF CARE | | | | | | TESTS | | + +---------+ + + + + + | Specimen | + + | Blood | + + + + + + + | Performing | Address | City/State/Zipcode | Phone Number | | Organization | | | | + + + + + | [facility] | [address] | [place], [place] | | | [facility] | [address] | [address] | | | TESTS | | | | + + + + + CAPILLARY BLOOD GLUCOSE (NO CHG), POC (08/24/2019 7:18 AM PST) + +---------+ + + + | Component | Value | Ref Range | Performed | Pathologist | | | | | At | Signature | + +---------+ + + + | BLOOD | 209 (H) | 70 - 99 mg/dL | [facility] - | | | GLUCOSE, | | | [facility] | | | POC | | | [facility] | | | | | | OF CARE | | | | | | TESTS | | + +---------+ + + + + + | Specimen | + + | Blood | + + + + + + + | Performing | Address | City/State/Zipcode | Phone Number | | Organization | | | | + + + + + | [facility] | [address] | [place], [place] | | | [facility] | [address] | [address] | | | TESTS | | | | + + + + + CBC AND AUTO DIFF (08/24/2019 5:52 AM PST) + + + + + + | Component | Value | Ref Range | Performed | Pathologist | | | | | At | Signature | + + + + + + | WHITE CELL | 4.47 | 3.50 - 10.80 | [facility] | | | COUNT | | K/cu mm | LABORATORY | | | | | | SERVICES, | | | | | | CORE | | + + + + + + | RED CELL | 2.71 (L) | 4.50 - 6.00 | [facility] | | | COUNT | | M/cu mm | LABORATORY | | | | | | SERVICES, | | | | | | CORE | | + + + + + + | HEMOGLOBIN | 8.8 (L) | 13.5 - 17.5 | [facility] | | | | | g/dL | LABORATORY | | | | | | SERVICES, | | | | | | CORE | | + + + + + + | HEMATOCRIT | 27.0 (L) | 41.0 - 53.0 % | [facility] | | | | | | LABORATORY | | | | | | SERVICES, | | | | | | CORE | | + + + + + + | MCV | 99.6 | 80.0 - 100.0 fL | [facility] | | | | | | LABORATORY | | | | | | SERVICES, | | | | | | CORE | | + + + + + + | MCHC | 32.6 | 32.0 - 36.0 | [facility] | | | | | g/dL | LABORATORY | | | | | | SERVICES, | | | | | | CORE | | + + + + + + | RDW SD | 58.9 (H) | 35.1 - 46.3 fL | [facility] | | | | | | LABORATORY | | | | | | SERVICES, | | | | | | CORE | | + + + + + + | PLATELET | 55 (L) | 150 - 400 K/cu | [...] + + + + | NEUTROPHIL | 75.9 (H) | 50.0 - 70.0 % | [facility] | | | % | | | LABORATORY | | | | | | SERVICES, | | | | | | CORE | | + + + + + + | LYMPHOCYTE | 13.4 (L) | 18.0 - 42.0 % | [facility] | | | % | | | LABORATORY | | | | | | SERVICES, | | | | | | CORE | | + + + + + + | MONOCYTE % | 6.3 | 3.5 - 9.0 % | [facility] | | | | | | LABORATORY | | | | | | SERVICES, | | | | | | CORE | | + + + + + + | EOS % | 2.9 | 1.0 - 3.0 % | [facility] | | | | | | LABORATORY | | | | | | SERVICES, | | | | | | CORE | | + + + + + + | BASO % | 0.2 | 0.0 - 2.0 % | [facility] | | | | | | LABORATORY | | | | | | SERVICES, | | | | | | CORE | | + + + + + + | IG% | 1.3 (H) | 0.0 - 1.0 % | [facility] | | | | | | LABORATORY | | | | | | SERVICES, | | | | | | CORE | | + + + + + + | NEUTROPHIL | 3.39 | 1.80 - 7.70 | [facility] | | | # | | K/cu mm | LABORATORY | | | | | | SERVICES, | | | | | | CORE | | + + + + + + | LYMPHOCYTE | 0.60 (L) | 1.00 - 4.80 | [facility] | | | # | | K/cu mm | LABORATORY | | | | | | SERVICES, | | | | | | CORE | | + + + + + + | MONOCYTE # | 0.28 | 0.10 - 0.90 | [facility] | | | | | K/cu mm | LABORATORY | | | | | | SERVICES, | | | | | | CORE | | + + + + + + | EOS # | 0.13 | 0.00 - 0.50 | [facility] | | | | | K/cu mm | LABORATORY | | | | | | SERVICES, | | | | | | CORE | | + + + + + + | BASO # | 0.01 | 0.00 - 0.10 | [facility] | | | | | K/cu mm | LABORATORY | | | | | | SERVICES, | | | | | | CORE | | + + + + + + | IG# | 0.06 | 0.00 - 0.10 | [...] + | [facility] | [address] | [place] [address] | | | SERVICES, CORE | [address] | | | + + + + + INR (08/24/2019 5:52 AM PST) + + + + + + | Component | Value | Ref Range | Performed | Pathologist | | | | | At | Signature | + + + + + + | INR | 1.34 (H) | 0.90 - 1.20 INR | [...] | + + + + + | [facility] | [address] | [place] [address] | | | SERVICES, CORE | [address] | | | + + + + + PREALBUMIN (08/24/2019 5:52 AM PST) + +-------+ + + + | Component | Value | Ref Range | Performed | Pathologist | | | | | At | Signature | + +-------+ + + + | PREALBUMIN | 24.5 | 17.0 - 42.0 | [facility] | | | | | mg/dL | [facility] | | | | | | [place] | | + +-------+ + + + + + | Specimen | + + | Blood - Blood | | (substance) | + + + + + + + | Performing | Address | City/State/Zipcode | Phone Number | | Organization | | | | + + + + + | [email or web address] | [address] | [place] [address] | | | [facility] | | | | + + + + + TACROLIMUS, WHOLE BLOOD (08/24/2019 5:52 AM PST) + + + + + + | Component | Value | Ref Range | Performed | Pathologist | | | | | At | Signature | + + + + + + | TACROLIMUS | 4.7 (L)Comment: Begin | 5.0 - 15.0 | [facility] | | | ([phone]) | POD #1 | ng/mL | LABORATORY | | | | | | SERVICES, | | | | | | SPECIAL IMM | | | | | | + COAG | | + + + + + + + + | Specimen | + + | Blood - Blood | | (substance) | + + + + + | Narrative | Performed At | + + + | Test performed by immunoassay using [employer] Child [employer] Adolescent [employer] i2000. . | [facility] | | Samples [...] | + + + + + | [facility] | [address] | [place] [address] | | | SERVICES, SPECIAL | [address] | | | | IMM + COAG | | | | + + + + + AMYLASE, PLASMA (08/24/2019 5:52 AM PST) + +--------+ + + + | Component | Value | Ref Range | Performed | Pathologist | | | | | At | Signature | + +--------+ + + + | AMYLASE,EZEQUIEL | 19 (L) | 25 - 115 U/L | [facility] | | | SMA | | | LABORATORY | | | | | | SERVICES, | | | | | | CORE | | + +--------+ + + + + + | Specimen | + + | Blood - Blood | | (substance) | + + + + + + + | Performing | Address | City/State/Zipcode | Phone Number | | Organization | | | | + + + + + | [facility] | [address] | [place] [address] | | | SERVICES, CORE | [address] | | | + + + + + LDH TOTAL, PLASMA (08/24/2019 5:52 AM PST) + +---------+ + + + | Component | Value | Ref Range | Performed | Pathologist | | | | | At | Signature | + +---------+ + + + | LD TOTAL, | 184 | <=250 U/L | [facility] | | | PLASMA | | | LABORATORY | | | | | | SERVICES, | | | | | | CORE | | + +---------+ + + + | LD CMNT | No Hemo | | [facility] [...] | + + + + + | [facility] | [address] | [place] [address] | | | SERVICES, CORE | [address] | | | + + + + + PHOSPHORUS, PLASMA (08/24/2019 5:52 AM PST) + +---------+ + + + | Component | Value | Ref Range | Performed | Pathologist | | | | | At | Signature | + +---------+ + + + | PHOSPHORUS, | 6.1 (H) | 2.4 - 4.7 mg/dL | [facility] [...] + | [facility] | [address] | [place] [address] | | | SERVICES, CORE | [address] | | | + + + + + MAGNESIUM, PLASMA (08/24/2019 5:52 AM PST) + +-------+ + + + | Component | Value | Ref Range | Performed | Pathologist | | | | | At | Signature | + +-------+ + + + | MAGNESIUM,P | 2.1 | 1.6 - 2.6 mg/dL | [facility] [...] + | [facility] | [address] | [place] [address] | | | SERVICES, CORE | [address] | | | + + + + + COMPLETE METABOLIC SET (NA,K,CL,CO2,BUN,CREAT,GLUC,CA,AST,ALT,BILI TOTAL,ALK PHOS,ALB,PROT TOTAL) (08/24/2019 5:52 AM PST) + + + + + + | Component | Value | Ref Range | Performed | Pathologist | | | | | At | Signature | + + + + + + | GLUCOSE, | 228 (H) | 70 - 99 mg/dL | [facility] | | | PLASMA | | | LABORATORY | | | (LAB) | | | SERVICES, | | | | | | CORE | | + + + + + + | BUN, PLASMA | 99 (H) | 6 - 20 mg/dL | [facility] | | | (LAB) | | | LABORATORY | | | | | | SERVICES, | | | | | | CORE | | + + + + + + | CREATININE | 2.37 (H) | 0.70 - 1.30 | [facility] | | | PLASMA | | mg/dL | LABORATORY | | | (LAB) | | | SERVICES, | | | | | | CORE | | + + + + + + | EGFR | 35 (L) | >60 mL/min | [facility] | | | - | | | LABORATORY | | | T[place] | | | SERVICES, | | | | | | CORE | | + + + + + + | EGFR NON | 29 (L) | >60 mL/min | [facility] | | | -JARRED | | | LABORATORY | | | [...] + + | POTASSIUM, | 4.8 | 3.4 - 5.0 | [facility] | | | PLASMA | | mmol/L | LABORATORY | | | (LAB) | | | SERVICES, | | | | | | CORE | | + + + + + + | CHLORIDE, | 105 | 97 - 108 mmol/L | [facility] | | | PLASMA | | | LABORATORY | | | (LAB) | | | SERVICES, | | | | | | CORE | | + + + + + + | TOTAL CO2, | 26 | 21 - 32 mmol/L | [facility] | | | PLASMA | | | LABORATORY | | | (LAB) | | | SERVICES, | | | | | | CORE | | + + + + + + | CALCIUM, | 8.5 (L) | 8.6 - 10.2 | [facility] | | | PLASMA | | mg/dL | LABORATORY | | | (LAB) | | | SERVICES, | | | | | | CORE | | + + + + + + | CALCIUM(ALB | 8.2 (L) | 8.6 - 10.2 | [facility] | | | CORRECTED) | | mg/dL | LABORATORY | | | | | | SERVICES, | | | | | | CORE | | + + + + + + | BILIRUBIN | 1.1 | 0.3 - 1.2 mg/dL | [facility] | | | TOTAL | | | LABORATORY | | | | | | SERVICES, | | | | | | CORE | | + + + + + + | TOTAL | 6.3 (L) | 6.4 - 8.2 g/dL | [...] + + + | ALK PHOS | 34 (L) | 53 - 128 U/L | [facility] | | | | | | LABORATORY | | | | | | SERVICES, | | | | | | CORE | | + + + + + + | AST(SGOT) | 11 | <=41 U/L | [facility] | | | | | | LABORATORY | | | | | | SERVICES, | | | | | | CORE | | + + + + + + | ALT (SGPT) | 45 | <=60 U/L | [facility] | | [...] MDRD equation recommended by the National | [facility] | | Kidney Disease Education Program. Estimated [...] | + + + + + | [facility] | [address] | [place] [address] | | | SERVICES, CORE | [address] | | | + + + + + CARDIOLOGY (08/24/2019 12:00 AM PST) + + + | Narrative | Performed At | + + + | | | + + + CARDIOLOGY (08/24/2019 12:00 AM PST) + + + | Narrative | Performed At | + + + | | | + + + CAPILLARY BLOOD GLUCOSE (NO CHG), POC (08/23/2019 11:52 PM PST) + +---------+ + + + | Component | Value | Ref Range | Performed | Pathologist | | | | | At | Signature | + +---------+ + + + | BLOOD | 339 (H) | 70 - 99 mg/dL | [facility] - | | | GLUCOSE, | | | [facility] | | | POC | | | [facility] | | | | | | OF CARE | | | | | | TESTS | | + +---------+ + + + + + | Specimen | + + | Blood | + + + + + + + | Performing | Address | City/State/Zipcode | Phone Number | | Organization | | | | + + + + + | [facility] | [address] | [place], [place] | | | [facility] | [address] | [address] | | | TESTS | | | | + + + + + CAPILLARY BLOOD GLUCOSE (NO CHG), POC (08/23/2019 9:32 PM PST) + +---------+ + + + | Component | Value | Ref Range | Performed | Pathologist | | | | | At | Signature | + +---------+ + + + | BLOOD | 347 (H) | 70 - 99 mg/dL | [facility] - | | | GLUCOSE, | | | [facility] | | | POC | | | [facility] | | | | | | OF CARE | | | | | | TESTS | | + +---------+ + + + + + | Specimen | + + | Blood | + + + + + + + | Performing | Address | City/State/Zipcode | Phone Number | | Organization | | | | + + + + + | [facility] | [address] | [place], [place] | | | [facility] | [facility] | [address] | | | TESTS | | | | + + + + + CAPILLARY BLOOD GLUCOSE (NO CHG), POC (08/23/2019 4:18 PM PST) + +---------+ + + + | Component | Value | Ref Range | Performed | Pathologist | | | | | At | Signature | + +---------+ + + + | BLOOD | 238 (H) | 70 - 99 mg/dL | [facility] - | | | GLUCOSE, | | | [facility] | | | POC | | | [facility] | | | | | | OF CARE | | | | | | TESTS | | + +---------+ + + + + + | Specimen | + + | Blood | + + + + + + + | Performing | Address | City/State/Zipcode | Phone Number | | Organization | | | | + + + + + | [facility] | [address] | [place], [place] | | | [facility] | [address] | [address] | | | TESTS | | | | + + + + + CAPILLARY BLOOD GLUCOSE (NO CHG), POC (08/23/2019 12:46 PM PST) + +---------+ + + + | Component | Value | Ref Range | Performed | Pathologist | | | | | At | Signature | + +---------+ + + + | BLOOD | 146 (H) | 70 - 99 mg/dL | [facility] - | | | GLUCOSE, | | | [facility] | | | POC | | | [facility] | | | | | | OF CARE | | | | | | TESTS | | + +---------+ + + + + + | Specimen | + + | Blood | + + + + + + + | Performing | Address | City/State/Zipcode | Phone Number | | Organization | | | | + + + + + | [facility] | [address] | [place], [place] | | | [facility] | [address] | [address] | | | TESTS | | | | + + + + + CAPILLARY BLOOD GLUCOSE (NO CHG), POC (08/23/2019 7:25 AM PST) + +---------+ + + + | Component | Value | Ref Range | Performed | Pathologist | | | | | At | Signature | + +---------+ + + + | BLOOD | 122 (H) | 70 - 99 mg/dL | [facility] - | | | GLUCOSE, | | | [facility] | | | POC | | | [facility] | | | | | | OF CARE | | | | | | TESTS | | + +---------+ + + + + + | Specimen | + + | Blood | + + + + + + + | Performing | Address | City/State/Zipcode | Phone Number | | Organization | | | | + + + + + | [facility] | [address] | [place], [place] | | | [facility] [place] [place] [facility] | [facility] | [address] | | | TESTS | | | | + + + + + CBC AND AUTO DIFF (08/23/2019 5:36 AM PST) + + + + + + | Component | Value | Ref Range | Performed | Pathologist | | | | | At | Signature | + + + + + + | WHITE CELL | 5.03 | 3.50 - 10.80 | [facility] | | | COUNT | | K/cu mm | LABORATORY | | | | | | SERVICES, | | | | | | CORE | | + + + + + + | RED CELL | 2.68 (L) | 4.50 - 6.00 | [facility] | | | COUNT | | M/cu mm | LABORATORY | | | | | | SERVICES, | | | | | | CORE | | + + + + + + | HEMOGLOBIN | 8.5 (L) | 13.5 - 17.5 | [facility] | | | | | g/dL | LABORATORY | | | | | | SERVICES, | | | | | | CORE | | + + + + + + | HEMATOCRIT | 26.0 (L) | 41.0 - 53.0 % | [facility] | | | | | | LABORATORY | | | | | | SERVICES, | | | | | | CORE | | + + + + + + | MCV | 97.0 | 80.0 - 100.0 fL | [facility] | | | | | | LABORATORY | | | | | | SERVICES, | | | | | | CORE | | + + + + + + | MCHC | 32.7 | 32.0 - 36.0 | [facility] | | | | | g/dL | LABORATORY | | | | | | SERVICES, | | | | | | CORE | | + + + + + + | RDW SD | 56.6 (H) | 35.1 - 46.3 fL | [facility] | | | | | | LABORATORY | | | | | | SERVICES, | | | | | | CORE | | + + + + + + | PLATELET | 47 (L) | 150 - 400 K/cu | [facility] | | | COUNT | | mm | LABORATORY | | | | | | SERVICES, | | | | | | CORE | | + + + + + + | MPV | 10.6 | 9.7 - 12.3 fL | [facility] [...] + + + + | NEUTROPHIL | 76.7 (H) | 50.0 - 70.0 % | [facility] | | | % | | | LABORATORY | | | | | | SERVICES, | | | | | | CORE | | + + + + + + | LYMPHOCYTE | 12.9 (L) | 18.0 - 42.0 % | [facility] | | | % | | | LABORATORY | | | | | | SERVICES, | | | | | | CORE | | + + + + + + | MONOCYTE % | 7.0 | 3.5 - 9.0 % | [facility] [...] + + + | BASO % | 0.2 | 0.0 - 2.0 % | [facility] | | | | | | LABORATORY | | | | | | SERVICES, | | | | | | CORE | | + + + + + + | IG% | 0.8 | 0.0 - 1.0 % | [facility] | | | | | | LABORATORY | | | | | | SERVICES, | | | | | | CORE | | + + + + + + | NEUTROPHIL | 3.86 | 1.80 - 7.70 | [facility] | | | # | | K/cu mm | LABORATORY | | | | | | SERVICES, | | | | | | CORE | | + + + + + + | LYMPHOCYTE | 0.65 (L) | 1.00 - 4.80 | [facility] | | | # | | K/cu mm | LABORATORY | | | | | | SERVICES, | | | | | | CORE | | + + + + + + | MONOCYTE # | 0.35 | 0.10 - 0.90 | [facility] | | | | | K/cu mm | LABORATORY | | | | | | SERVICES, | | | | | | CORE | | + + + + + + | EOS # | 0.12 | 0.00 - 0.50 | [facility] | | | | | K/cu mm | LABORATORY | | | | | | SERVICES, | | | | | | CORE | | + + + + + + | BASO # | 0.01 | 0.00 - 0.10 | [...] | + + + + + | [facility] | [address] | [place] [address] | | | SERVICES, CORE | [address] | | | + + + + + TACROLIMUS, WHOLE BLOOD (08/23/2019 5:36 AM PST) + + + + + + | Component | Value | Ref Range | Performed | Pathologist | | | | | At | Signature | + + + + + + | TACROLIMUS | 4.2 (L)Comment: Begin | 5.0 - 15.0 | [facility] | | | ([address]) | POD #1 | ng/mL | LABORATORY | | | | | | SERVICES, | | | | | | SPECIAL IMM | | | | | | + COAG | | + + + + + + + + | Specimen | + + | Blood - Blood | | (substance) | + + + + + | Narrative | Performed At | + + + | Test performed by immunoassay using [employer] i2000. . | [facility] | | Samples [...] | + + + + + | [facility] | [address] | [place] [address] | | | SERVICES, SPECIAL | [address] | | | | IMM + COAG | | | | + + + + + AMYLASE, PLASMA (08/23/2019 5:36 AM PST) + +--------+ + + + | Component | Value | Ref Range | Performed | Pathologist | | | | | At | Signature | + +--------+ + + + | AMYLASE,EZEQUIEL | 19 (L) | 25 - 115 U/L | [facility] | | | [facility] | | | LABORATORY | | | | | | SERVICES, | | | | | | CORE | | + +--------+ + + + + + | Specimen | + + | Blood - Blood | | (substance) | + + + + + + + | Performing | Address | City/State/Zipcode | Phone Number | | Organization | | | | + + + + + | [facility] | [address] | [place] [address] | | | SERVICES, CORE | [address] | | | + + + + + LDH TOTAL, PLASMA (08/23/2019 5:36 AM PST) + +---------+ + + + | Component | Value | Ref Range | Performed | Pathologist | | | | | At | Signature | + +---------+ + + + | LD TOTAL, | 170 | <=250 U/L | [facility] | | | [facility] | | | LABORATORY | | | | | | SERVICES, | | | | | | CORE | | + +---------+ + + + | LD CMNT | No Hemo | | [facility] [...] | + + + + + | [employer] | [address] | [place] [address] | | | SERVICES, CORE | [address] | | | + + + + + PHOSPHORUS, PLASMA (08/23/2019 5:36 AM PST) + +---------+ + + + | Component | Value | Ref Range | Performed | Pathologist | | | | | At | Signature | + +---------+ + + + | PHOSPHORUS, | 4.9 (H) | 2.4 - 4.7 mg/dL | [facility] [...] + | [facility] | [address] | [place] [address] | | | SERVICES, CORE | [address] | | | + + + + + MAGNESIUM, PLASMA (08/23/2019 5:36 AM PST) + +-------+ + + + | Component | Value | Ref Range | Performed | Pathologist | | | | | At | Signature | + +-------+ + + + | MAGNESIUM,P | 2.2 | 1.6 - 2.6 mg/dL | [facility] [...] | + + + + + | [facility] | [address] | [place] [address] | | | SERVICES, CORE | [address] | | | + + + + + COMPLETE METABOLIC SET (NA,K,CL,CO2,BUN,CREAT,GLUC,CA,AST,ALT,BILI TOTAL,ALK PHOS,ALB,PROT TOTAL) (08/23/2019 5:36 AM PST) + + + + + + | Component | Value | Ref Range | Performed | Pathologist | | | | | At | Signature | + + + + + + | GLUCOSE, | 149 (H) | 70 - 99 mg/dL | [facility] | | | PLASMA | | | LABORATORY | | | (LAB) | | | SERVICES, | | | | | | CORE | | + + + + + + | BUN, PLASMA | 99 (H) | 6 - 20 mg/dL | [facility] | | | (LAB) | | | LABORATORY | | | | | | SERVICES, | | | | | | CORE | | + + + + + + | CREATININE | 2.03 (H) | 0.70 - 1.30 | [facility] | | | PLASMA | | mg/dL | LABORATORY | | | (LAB) | | | SERVICES, | | | | | | CORE | | + + + + + + | EGFR | 42 (L) | >60 mL/min | [facility] | | | - | | | LABORATORY | | | TURKISH | | | SERVICES, | | | | | | CORE | | + + + + + + | EGFR NON | 34 (L) | >60 mL/min | [facility] | | | -JARRED | | | LABORATORY | | | [...] + + | POTASSIUM, | 4.7 | 3.4 - 5.0 | [facility] | [...] + | TOTAL CO2, | 25 | 21 - 32 mmol/L | [facility] | | | PLASMA | | | LABORATORY | | | (LAB) | | | SERVICES, | | | | | | CORE | | + + + + + + | CALCIUM, | 8.1 (L) | 8.6 - 10.2 | [facility] | | | PLASMA | | mg/dL | LABORATORY | | | (LAB) | | | SERVICES, | | | | | | CORE | | + + + + + + | CALCIUM(ALB | 8.4 (L) | 8.6 - 10.2 | [facility] | | | CORRECTED) | | mg/dL | LABORATORY | | | | | | SERVICES, | | | | | | CORE | | + + + + + + | BILIRUBIN | 1.1 | 0.3 - 1.2 mg/dL | [facility] | | | TOTAL | | | LABORATORY | | | | | | SERVICES, | | | | | | CORE | | + + + + + + | TOTAL | 5.4 (L) | 6.4 - 8.2 g/dL | [facility] | | | PROTEIN, | | | LABORATORY | | | PLASMA | | | SERVICES, | | | (LAB) | | | CORE | | + + + + + + | ALBUMIN, | 3.6 | 3.5 - 4.7 g/dL | [facility] | | | PLASMA | | | LABORATORY | | | (LAB) | | | SERVICES, | | | | | | CORE | | + + + + + + | ALK PHOS | 29 (L) | 53 - 128 U/L | [facility] | | | | | | LABORATORY | | | | | | SERVICES, | | | | | | CORE | | + + + + + + | AST(SGOT) | 11 | <=41 U/L | [facility] | | | | | | LABORATORY | | | | | | SERVICES, | | | | | | CORE | | + + + + + + | ALT (SGPT) | 44 | <=60 U/L | [facility] | | [...] + + + + | ANION | 7 | 4 - 11 mmol/L | [facility] [...] MDRD equation recommended by the National | [facility] | | Kidney Disease Education Program. Estimated [...] + | [facility] | [address] | [place] [address] | | | SERVICES, CORE | [address] | | | + + + + + INR (08/23/2019 5:35 AM PST) + + + + + + | Component | Value | Ref Range | Performed | Pathologist | | | | | At | Signature | + + + + + + | INR | 1.39 (H) | 0.90 - 1.20 INR | [...] | + + + + + | [employer] | [address] | [place] [address] | | | SERVICES, ARTIS | [address] | | | + + + + + CARDIOLOGY (08/23/2019 12:00 AM PDT) + + + | Narrative | Performed At | + + + | | | + + + CAPILLARY BLOOD GLUCOSE (NO CHG), POC (08/22/2019 11:10 PM PDT) + +---------+ + + + | Component | Value | Ref Range | Performed | Pathologist | | | | | At | Signature | + +---------+ + + + | BLOOD | 211 (H) | 70 - 99 mg/dL | [facility] | | | [facility], | | | [facility] | | | POC | | | [facility] | | | | | | OF CARE | | | | | | TESTS | | + +---------+ + + + + + | Specimen | + + | Blood | + + + + + + + | Performing | Address | City/State/Zipcode | Phone Number | | Organization | | | | + + + + + | [facility] | [address] | [place], [place] | | | [facility] | [address] | [address] | | | TESTS | | | | + + + + + CAPILLARY BLOOD GLUCOSE (NO CHG), POC (08/22/2019 7:55 PM PDT) + +---------+ + + + | Component | Value | Ref Range | Performed | Pathologist | | | | | At | Signature | + +---------+ + + + | BLOOD | 164 (H) | 70 - 99 mg/dL | [facility] - | | | GLUCOSE, | | | [facility] | | | POC | | | [facility] | | | | | | OF CARE | | | | | | TESTS | | + +---------+ + + + + + | Specimen | + + | Blood | + + + + + + + | Performing | Address | City/State/Zipcode | Phone Number | | Organization | | | | + + + + + | [facility] | [address] | [place], [place] | | | [facility] | [address] | [address] | | | TESTS | | | | + + + + + CAPILLARY BLOOD GLUCOSE (NO CHG), POC (08/22/2019 6:26 PM PDT) + +---------+ + + + | Component | Value | Ref Range | Performed | Pathologist | | | | | At | Signature | + +---------+ + + + | BLOOD | 140 (H) | 70 - 99 mg/dL | [facility] | | | GLUCOSE, | | | [facility] | | | POC | | | [facility] | | | | | | OF CARE | | | | | | TESTS | | + +---------+ + + + + + | Specimen | + + | Blood | + + + + + + + | Performing | Address | City/State/Zipcode | Phone Number | | Organization | | | | + + + + + | [facility] | [address] | [place], [place] | | | [facility] [place] | [facility] | [address] | | | TESTS | | | | + + + + + CAPILLARY BLOOD GLUCOSE (NO CHG), POC (08/22/2019 2:40 PM PDT) + +---------+ + + + | Component | Value | Ref Range | Performed | Pathologist | | | | | At | Signature | + +---------+ + + + | BLOOD | 134 (H) | 70 - 99 mg/dL | [facility] - | | | GLUCOSE, | | | [facility] | | | POC | | | [facility] | | | | | | OF CARE | | | | | | TESTS | | + +---------+ + + + + + | Specimen | + + | Blood | + + + + + + + | Performing | Address | City/State/Zipcode | Phone Number | | Organization | | | | + + + + + | [facility] | [address] | [place], [place] | | | [facility] | [address] | [address] | | | TESTS | | | | + + + + + X-RAY PORTABLE CHEST 1 VIEW (08/22/2019 1:36 PM PDT) + + | Specimen | + + | | + + + + + | Narrative | Performed At | + + + | EXAM: AR CHEST 1 VIEW HISTORY: s/p central line placement | [facility] | | COMPARISON: Chest radiograph 08/16/2019 FINDINGS: A right | RADIOLOGY VOICE | | internal jugular introducer sheath containing a central venous | RECOGNITION 2 | | catheter has been placed with the tip terminating in the mid SVC. The | | | endotracheal tube, enteric tube, and feeding tube have been removed. | | | Low lung volumes are redemonstrated. Mild left retrocardiac | | | atelectasis is markedly improved. There is no new focal consolidation | | | or pulmonary edema. A trace right pleural effusion is suspected. There | | | is no left pleural effusion or pneumothorax. The cardiomediastinal | | | contour is stable. The no acute osseus abnormality is noted. | | | IMPRESSION: Right internal jugular introducer sheath containing a | | | central venous catheter with tip terminating in the mid SVC. No | | | pneumothorax. Low lung volumes with improved mild left | | | retrocardiac atelectasis. I have personally reviewed the images | | | and, if necessary, edited the report. I agree with the report as now | | | presented. Final signature: Carin Islas MD 08/22/2019 | | | 2:09 PM Preliminary: Carin Islas MD Dictation | | | initiated: Carin Islas MD 08/22/2019 2:06 PM | | + + + + + | Procedure Note | + + | Service Account, Radiant Res In Interface - 08/22/2019 2:10 PM PDT EXAM: AR CHEST 1 | | VIEW HISTORY: s/p central line placement COMPARISON: Chest radiograph 08/16/2019 | | FINDINGS: A right internal jugular introducer sheath containing a central venous | | catheter has been placed with the tip terminating in the mid SVC. The endotracheal tube, | | enteric tube, and feeding tube have been removed. Low lung volumes are redemonstrated. | | Mild left retrocardiac atelectasis is markedly improved. There is no new focal | | consolidation or pulmonary edema. A trace right pleural effusion is suspected. There is | | no left pleural effusion or pneumothorax. The cardiomediastinal contour is stable. The | | no acute osseus abnormality is noted. IMPRESSION: Right internal jugular introducer | | sheath containing a central venous catheter with tip terminating in the mid SVC. No | | pneumothorax. Low lung volumes with improved mild left retrocardiac atelectasis. I have | | personally reviewed the images and, if necessary, edited the report. I agree with the | | report as now presented. Final signature: Carin Islas MD 08/22/2019 2:09 PM | | Preliminary: Carin Islas MD Dictation initiated: Carin Islas MD | | 08/22/2019 2:06 PM | |Right internal jugular introducer sheath containing a central venous catheter with tip term inating in the mid SVC. No pneumothorax. | | | |Low lung volumes with improved mild left retrocardiac atelectasis. | | | |I have personally reviewed the images and, if necessary, edited the report. I agree with th e report as now presented. | | | |Final signature: Carin Islas MD 08/22/2019 2:09 PM | |Preliminary: Carin Islas MD | |Dictation initiated: Carin Islas MD 08/22/2019 2:06 PM | + + + +---------+ + + | Performing | Address | City/State/Zipcode | Phone Number | | Organization | | | | + +---------+ + + | [facility] | | | | | VOICE RECOGNITION 2 | | | | + +---------+ + + CENTRAL LINE (08/22/2019 1:10 PM PDT) + + + | Narrative | Performed At | + + + | Homero Cid MD 08/22/2019 1:12 PM CENTRAL LINE | | | Performed by: Homero Cid MD Authorized by: Una Bazan MD | | | Written consent obtained?: Yes Consent given by: Patient | | | Patient identity confirmed per policy: Yes Procedural pause: | | | Immediately prior to the procedure a pause per universal protocol | | | was called . Location performed: Acute Care Skin Preparation: | | | Chloraprep Protective barrier: Cap, Mask, Hand scrub, Gown, | | | Gloves and Full body drape Sterile Ultrasound Technique: Sterile | | | Ultrasound techniques (sterile gel, and sterile probe cover) used | | | Indications: Indications: Renal replacement therapy | | | Diagnosis indicating procedure: Alcoholic liver disease; end stage | | | liver disease; s/p OLTx Responsible Provider: Operators: | | | Resident and Fellow Fellow name: Broderick Min Resident | | | name: Silvia Cid Anesthesia: Local anesthetic: | | | Lidocaine 1% w/o epinephrine Anesthetic total (ml): 10 | | | Sedation/Analgesia: Patient sedated?: No Procedure details: | | | Insertion side: Right Insertion site: Internal Jugular vein | | | Insertion site statement: With catheter tip targeted in SVC, | | | see CXR report for confirmation Vein printed circuit boards plasma etcher technique: | | | Ultrasound Guidance Techique: The modified Seldinger technique | | | (a [id number]) was | | | used for vessel cannulation Confirmed by: The wire was | | | visualized with ultrasound in the correct target vessel | | | Ultrasound options: No images saved Catheter type: | | | Hemodialysis Cath Catheter size: Hemodialysis Catheter | | | length: 16 cm Insertion depth: 16 cm Ports: All ports | | | aspirated for blood Number of attempts: 1 Fixation and | | | Dressing: Line secured: Suture, Dressing Applied and [employer]Lock | | | The guide wire was removed without difficulties and intact | | | Dressing: Covered with sterile gauze applied prior to removal of | | | drape followed by sterile dressing applied Complications: | | | Complications: None | | + + + CAPILLARY BLOOD GLUCOSE (NO CHG), POC (08/22/2019 1:02 PM PDT) + +-------+ + + + | Component | Value | Ref Range | Performed | Pathologist | | | | | At | Signature | + +-------+ + + + | BLOOD | 94 | 70 - 99 mg/dL | [facility] - | | | GLUCOSE, | | | [facility] | | | POC | | | [facility] | | | | | | OF CARE | | | | | | TESTS | | + +-------+ + + + + + | Specimen | + + | Blood | + + + + + + + | Performing | Address | City/State/Zipcode | Phone Number | | Organization | | | | + + + + + | [facility] | [address] | [place], [place] | | | [facility] | [address] | [address] | | | TESTS | | | | + + + + + CAPILLARY BLOOD GLUCOSE (NO CHG), POC (08/22/2019 11:25 AM PDT) + +-------+ + + + | Component | Value | Ref Range | Performed | Pathologist | | | | | At | Signature | + +-------+ + + + | BLOOD | 80 | 70 - 99 mg/dL | [facility] - | | | GLUCOSE, | | | [facility] | | | POC | | | [facility] | | | | | | OF CARE | | | | | | TESTS | | + +-------+ + + + + + | Specimen | + + | Blood | + + + + + + + | Performing | Address | City/State/Zipcode | Phone Number | | Organization | | | | + + + + + | [facility] | [address] | [place], [place] | | | [facility] | [address] | [address] | | | TESTS | | | | + + + + + CAPILLARY BLOOD GLUCOSE (NO CHG), POC (08/22/2019 10:53 AM PDT) + +--------+ + + + | Component | Value | Ref Range | Performed | Pathologist | | | | | At | Signature | + +--------+ + + + | BLOOD | 66 (L) | 70 - 99 mg/dL | [facility] | | | GLUCOSE, | | | [facility] | | | POC | | | [facility] | | | | | | OF CARE | | | | | | TESTS | | + +--------+ + + + + + | Specimen | + + | Blood | + + + + + + + | Performing | Address | City/State/Zipcode | Phone Number | | Organization | | | | + + + + + | [facility] | [address] | [place], [place] | | | [facility] | [address] | [address] | | | TESTS | | | | + + + + + CAPILLARY BLOOD GLUCOSE (NO CHG), POC (08/22/2019 10:34 AM PDT) + +--------+ + + + | Component | Value | Ref Range | Performed | Pathologist | | | | | At | Signature | + +--------+ + + + | BLOOD | 60 (L) | 70 - 99 mg/dL | [facility] - | | | GLUCOSE, | | | [facility] | | | POC | | | [facility] | | | | | | OF CARE | | | | | | TESTS | | + +--------+ + + + + + | Specimen | + + | Blood | + + + + + + + | Performing | Address | City/State/Zipcode | Phone Number | | Organization | | | | + + + + + | [facility] | [address] | [place], [place] | | | [facility] | [address] | [address] | | | TESTS | | | | + + + + + CAPILLARY BLOOD GLUCOSE (NO CHG), POC (08/22/2019 10:07 AM PDT) + +--------+ + + + | Component | Value | Ref Range | Performed | Pathologist | | | | | At | Signature | + +--------+ + + + | BLOOD | 52 (<) | 70 - 99 mg/dL | [facility] - | | | GLUCOSE, | | | [facility] | | | POC | | | [facility] | | | | | | OF CARE | | | | | | TESTS | | + +--------+ + + + + + | Specimen | + + | Blood | + + + + + + + | Performing | Address | City/State/Zipcode | Phone Number | | Organization | | | | + + + + + | [facility] | [address] | [place], [place] | | | [facility] | [address] | [address] | | | TESTS | | | | + + + + + CAPILLARY BLOOD GLUCOSE (NO CHG), POC (08/22/2019 9:37 AM PDT) + +--------+ + + + | Component | Value | Ref Range | Performed | Pathologist | | | | | At | Signature | + +--------+ + + + | BLOOD | 54 (<) | 70 - 99 mg/dL | [facility] | | | GLUCOSE, | | | [facility] | | | POC | | | [facility] | | | | | | OF CARE | | | | | | TESTS | | + +--------+ + + + + + | Specimen | + + | Blood | + + + + + + + | Performing | Address | City/State/Zipcode | Phone Number | | Organization | | | | + + + + + | [facility] | [address] | [place], [place] | | | [facility] | [facility] | [address] | | | TESTS | | | | + + + + + CAPILLARY BLOOD GLUCOSE (NO CHG), POC (08/22/2019 9:18 AM PDT) + +--------+ + + + | Component | Value | Ref Range | Performed | Pathologist | | | | | At | Signature | + +--------+ + + + | BLOOD | 57 (L) | 70 - 99 mg/dL | [facility] - | | | GLUCOSE, | | | [facility] | | | POC | | | [facility] | | | | | | OF CARE | | | | | | TESTS | | + +--------+ + + + + + | Specimen | + + | Blood | + + + + + + + | Performing | Address | City/State/Zipcode | Phone Number | | Organization | | | | + + + + + | [facility] | [address] | [place], [place] | | | [facility] [place] | [facility] | [address] | | | TESTS | | | | + + + + + CBC AND AUTO DIFF (08/22/2019 5:39 AM PDT) + + + + + + | Component | Value | Ref Range | Performed | Pathologist | | | | | At | Signature | + + + + + + | WHITE CELL | 6.54 | 3.50 - 10.80 | [facility] | | | COUNT | | K/cu mm | LABORATORY | | | | | | SERVICES, | | | | | | CORE | | + + + + + + | RED CELL | 3.04 (L) | 4.50 - 6.00 | [facility] | | | COUNT | | M/cu mm | LABORATORY | | | | | | SERVICES, | | | | | | CORE | | + + + + + + | HEMOGLOBIN | 9.8 (L) | 13.5 - 17.5 | [facility] | | | | | g/dL | LABORATORY | | | | | | SERVICES, | | | | | | CORE | | + + + + + + | HEMATOCRIT | 29.3 (L) | 41.0 - 53.0 % | [facility] | | | | | | LABORATORY | | | | | | SERVICES, | | | | | | CORE | | + + + + + + | MCV | 96.4 | 80.0 - 100.0 fL | [facility] | | | | | | LABORATORY | | | | | | SERVICES, | | | | | | CORE | | + + + + + + | MCHC | 33.4 | 32.0 - 36.0 | [facility] | | | | | g/dL | LABORATORY | | | | | | SERVICES, | | | | | | CORE | | + + + + + + | RDW SD | 57.2 (H) | 35.1 - 46.3 fL | [facility] | | | | | | LABORATORY | | | | | | SERVICES, | | | | | | CORE | | + + + + + + | PLATELET | 53 (L) | 150 - 400 K/cu | [facility] | | | COUNT | | mm | LABORATORY | | | | | | SERVICES, | | | | | | CORE | | + + + + + + | MPV | 10.1 | 9.7 - 12.3 fL | [facility] [...] + + + + | NEUTROPHIL | 79.5 (H) | 50.0 - 70.0 % | [facility] | | | % | | | LABORATORY | | | | | | SERVICES, | | | | | | CORE | | + + + + + + | LYMPHOCYTE | 11.6 (L) | 18.0 - 42.0 % | [facility] | | | % | | | LABORATORY | | | | | | SERVICES, | | | | | | CORE | | + + + + + + | MONOCYTE % | 6.1 | 3.5 - 9.0 % | [facility] | | | | | | LABORATORY | | | | | | SERVICES, | | | | | | CORE | | + + + + + + | EOS % | 1.2 | 1.0 - 3.0 % | [facility] | | | | | | LABORATORY | | | | | | SERVICES, | | | | | | CORE | | + + + + + + | BASO % | 0.2 | 0.0 - 2.0 % | [facility] | | | | | | LABORATORY | | | | | | SERVICES, | | | | | | CORE | | + + + + + + | IG% | 1.4 (H) | 0.0 - 1.0 % | [facility] | | | | | | LABORATORY | | | | | | SERVICES, | | | | | | CORE | | + + + + + + | NEUTROPHIL | 5.20 | 1.80 - 7.70 | [facility] | | | # | | K/cu mm | LABORATORY | | | | | | SERVICES, | | | | | | CORE | | + + + + + + | LYMPHOCYTE | 0.76 (L) | 1.00 - 4.80 | [facility] | | | # | | K/cu mm | LABORATORY | | | | | | SERVICES, | | | | | | CORE | | + + + + + + | MONOCYTE # | 0.40 | 0.10 - 0.90 | [facility] | | | | | K/cu mm | LABORATORY | | | | | | SERVICES, | | | | | | CORE | | + + + + + + | EOS # | 0.08 | 0.00 - 0.50 | [facility] | | | | | K/cu mm | LABORATORY | | | | | | SERVICES, | | | | | | CORE | | + + + + + + | BASO # | 0.01 | 0.00 - 0.10 | [facility] | | | | | K/cu mm | LABORATORY | | | | | | SERVICES, | | | | | | CORE | | + + + + + + | IG# | 0.09 | 0.00 - 0.10 | [facility] | [...] | + + + + + | [facility] | [address] | [place] [address] | | | SERVICES, CORE | [address] | | | + + + + + INR (08/22/2019 5:39 AM PDT) + + + + + + | Component | Value | Ref Range | Performed | Pathologist | | | | | At | Signature | + + + + + + | INR | 1.31 (H) | 0.90 - 1.20 INR | [...] mech. valves (2.5 - 3.5) INR | CLAUDIA, CORE | + + + + + + + + | Performing | Address | City/State/Zipcode | Phone Number | | Organization | | | | + + + + + | [facility] | [address] | [place] [address] | | | CLAUDIA, ARTIS | [address] | | | + + + + + TACROLIMUS, WHOLE BLOOD (08/22/2019 5:39 AM PDT) + + + + + + | Component | Value | Ref Range | Performed | Pathologist | | | | | At | Signature | + + + + + + | TACROLIMUS | 8.6Comment: Begin POD #1 | 5.0 - 15.0 | [facility] | | | ([id number]) | | ng/mL | LABORATORY | | | | | | SERVICES, | | | | | | SPECIAL IMM | | | | | | + COAG | | + + + + + + + + | Specimen | + + | Blood - Blood | | (substance) | + + + + + | Narrative | Performed At | + + + | Test performed by immunoassay using [employer] i2000. . | [facility] | | Samples [...] | + + + + + | [facility] | [address] | [place] [address] | | | CLAUD[facility] SPECIAL | [address] | | | | IMM + COAG | | | | + + + + + AMYLASE, PLASMA (08/22/2019 5:39 AM PDT) + +--------+ + + + | Component | Value | Ref Range | Performed | Pathologist | | | | | At | Signature | + +--------+ + + + | AMYLASE,EZEQUIEL | 23 (L) | 25 - 115 U/L | [facility] | | | SMA | | | LABORATORY | | | | | | SERVICES, | | | | | | CORE | | + +--------+ + + + + + | Specimen | + + | Blood - Blood | | (substance) | + + + + + + + | Performing | Address | City/State/Zipcode | Phone Number | | Organization | | | | + + + + + | [facility] | [address] | [place] [address] | | | SERVICES, CORE | [address] | | | + + + + + LDH TOTAL, PLASMA (08/22/2019 5:39 AM PDT) + +---------+ + + + | Component | Value | Ref Range | Performed | Pathologist | | | | | At | Signature | + +---------+ + + + | LD TOTAL, | 189 | <=250 U/L | [facility] | | | PLASMA | | | LABORATORY | | | | | | SERVICES, | | | | | | CORE | | + +---------+ + + + | LD CMNT | No Hemo | | [facility] [...] + | [facility] | [address] | [place] [address] | | | SERVICES, CORE | [address] | | | + + + + + PHOSPHORUS, PLASMA (08/22/2019 5:39 AM PDT) + +---------+ + + + | Component | Value | Ref Range | Performed | Pathologist | | | | | At | Signature | + +---------+ + + + | PHOSPHORUS, | 6.8 (H) | 2.4 - 4.7 mg/dL | [facility] [...] | + + + + + | [facility] | [address] | [place] [address] | | | SERVICES, CORE | [address] | | | + + + + + MAGNESIUM, PLASMA (08/22/2019 5:39 AM PDT) + +-------+ + + + | Component | Value | Ref Range | Performed | Pathologist | | | | | At | Signature | + +-------+ + + + | MAGNESIUM,P | 2.4 | 1.6 - 2.6 mg/dL | [facility] | | | LASMA | | | [...] | + + + + + | [facility] | [address] | [place] [address] | | | SERVICES, CORE | [address] | | | + + + + + COMPLETE METABOLIC SET (NA,K,CL,CO2,BUN,CREAT,GLUC,CA,AST,ALT,BILI TOTAL,ALK PHOS,ALB,PROT TOTAL) (08/22/2019 5:39 AM PDT) + + + + + + | Component | Value | Ref Range | Performed | Pathologist | | | | | At | Signature | + + + + + + | GLUCOSE, | 103 (H) | 70 - 99 mg/dL | [facility] | | | PLASMA | | | LABORATORY | | | (LAB) | | | SERVICES, | | | | | | CORE | | + + + + + + | BUN, PLASMA | 150 (H) | 6 - 20 mg/dL | [facility] | | | (LAB) | | | LABORATORY | | | | | | SERVICES, | | | | | | CORE | | + + + + + + | CREATININE | 2.58 (H) | 0.70 - 1.30 | [facility] | | | PLASMA | | mg/dL | LABORATORY | | | (LAB) | | | SERVICES, | | | | | | CORE | | + + + + + + | EGFR | 32 (L) | >60 mL/min | [facility] | | | - | | | LABORATORY | | | [place] | | | SERVICES, | | | | | | CORE | | + + + + + + | EGFR NON | 26 (L) | >60 mL/min | [facility] | | | -JARRED | | | LABORATORY | | | RICAN | | | SERVICES, | | | | | | CORE | | + + + + + + | SODIUM, | 135 (L) | 136 - 145 | [facility] | | | PLASMA | | mmol/L | LABORATORY | | | (LAB) | | | SERVICES, | | | | | | CORE | | + + + + + + | POTASSIUM, | 5.4 (H) | 3.4 - 5.0 | [facility] | | | PLASMA | | mmol/L | LABORATORY | | | (LAB) | | | SERVICES, | | | | | | CORE | | + + + + + + | CHLORIDE, | 104 | 97 - 108 mmol/L | [facility] | | | PLASMA | | | LABORATORY | | | (LAB) | | | SERVICES, | | | | | | CORE | | + + + + + + | TOTAL CO2, | 19 (L) | 21 - 32 mmol/L | [facility] | | | PLASMA | | | LABORATORY | | | (LAB) | | | SERVICES, | | | | | | CORE | | + + + + + + | CALCIUM, | 8.5 (L) | 8.6 - 10.2 | [facility] | | | PLASMA | | mg/dL | LABORATORY | | | (LAB) | | | SERVICES, | | | | | | CORE | | + + + + + + | CALCIUM(ALB | 8.6 | 8.6 - 10.2 | [facility] | | | CORRECTED) | | mg/dL | LABORATORY | | | | | | SERVICES, | | | | | | CORE | | + + + + + + | BILIRUBIN | 1.3 (H) | 0.3 - 1.2 mg/dL | [facility] | | | TOTAL | | | LABORATORY | | | | | | SERVICES, | | | | | | CORE | | + + + + + + | TOTAL | 5.7 (L) | 6.4 - 8.2 g/dL | [facility] | | | PROTEIN, | | | LABORATORY | | | PLASMA | | | SERVICES, | | | (LAB) | | | CORE | | + + + + + + | ALBUMIN, | 3.9 | 3.5 - 4.7 g/dL | [facility] | | | PLASMA | | | LABORATORY | | | (LAB) | | | SERVICES, | | | | | | CORE | | + + + + + + | ALK PHOS | 32 (L) | 53 - 128 U/L | [facility] | | | | | | LABORATORY | | | | | | SERVICES, | | | | | | CORE | | + + + + + + | AST(SGOT) | 13 | <=41 U/L | [facility] | | | | | | LABORATORY | | | | | | SERVICES, | | | | | | CORE | | + + + + + + | ALT (SGPT) | 59 | <=60 U/L | [facility] | | [...] + + + + | ANION | 12 (H) | 4 - 11 [...] | + + + + + | [facility] | [address] | [place] [address] | | | SERVICES, ARTIS | [address] | | | + + + + + CARDIOLOGY (08/22/2019 12:00 AM PDT) + + + | Narrative | Performed At | + + + | | | + + + CARDIOLOGY (08/22/2019 12:00 AM PDT) + + + | Narrative | Performed At | + + + | | | + + + CAPILLARY BLOOD GLUCOSE (NO CHG), POC (08/21/2019 9:48 PM PDT) + +---------+ + + + | Component | Value | Ref Range | Performed | Pathologist | | | | | At | Signature | + +---------+ + + + | BLOOD | 204 (H) | 70 - 99 mg/dL | [facility] - | | | GLUCOSE, | | | [facility] | | | POC | | | [facility] | | | | | | OF CARE | | | | | | TESTS | | + +---------+ + + + + + | Specimen | + + | Blood | + + + + + + + | Performing | Address | City/State/Zipcode | Phone Number | | Organization | | | | + + + + + | [facility] | [address] | [place], [place] | | | [facility] [place] | [facility] | [address] | | | TESTS | | | | + + + + + CAPILLARY BLOOD GLUCOSE (NO CHG), POC (08/21/2019 8:02 PM PDT) + +---------+ + + + | Component | Value | Ref Range | Performed | Pathologist | | | | | At | Signature | + +---------+ + + + | BLOOD | 173 (H) | 70 - 99 mg/dL | [facility] - | | | GLUCOSE, | | | [facility] | | | POC | | | [facility] | | | | | | OF CARE | | | | | | TESTS | | + +---------+ + + + + + | Specimen | + + | Blood | + + + + + + + | Performing | Address | City/State/Zipcode | Phone Number | | Organization | | | | + + + + + | [facility] | [address] | [place], [place] | | | [facility] | [address] | [address] | | | TESTS | | | | + + + + + CAPILLARY BLOOD GLUCOSE (NO CHG), POC (08/21/2019 6:44 PM PDT) + +---------+ + + + | Component | Value | Ref Range | Performed | Pathologist | | | | | At | Signature | + +---------+ + + + | BLOOD | 156 (H) | 70 - 99 mg/dL | [facility] | | | GLUCOSE, | | | [place] | | | POC | | | [facility] | | | | | | OF CARE | | | | | | TESTS | | + +---------+ + + + + + | Specimen | + + | Blood | + + + + + + + | Performing | Address | City/State/Zipcode | Phone Number | | Organization | | | | + + + + + | [facility] | [address] | [place], [place] | | | [facility] [place] | [facility] | [address] | | | TESTS | | | | + + + + + CAPILLARY BLOOD GLUCOSE (NO CHG), POC (08/21/2019 3:05 PM PDT) + +---------+ + + + | Component | Value | Ref Range | Performed | Pathologist | | | | | At | Signature | + +---------+ + + + | BLOOD | 196 (H) | 70 - 99 mg/dL | [facility] - | | | GLUCOSE, | | | [facility] | | | POC | | | [facility] [place] | | | | | | OF CARE | | | | | | TESTS | | + +---------+ + + + + + | Specimen | + + | Blood | + + + + + + + | Performing | Address | City/State/Zipcode | Phone Number | | Organization | | | | + + + + + | [facility] | [address] | [place], [place] | | | [facility] | [facility] | [address] | | | TESTS | | | | + + + + + CAPILLARY BLOOD GLUCOSE (NO CHG), POC (08/21/2019 1:50 PM PDT) + +---------+ + + + | Component | Value | Ref Range | Performed | Pathologist | | | | | At | Signature | + +---------+ + + + | BLOOD | 221 (H) | 70 - 99 mg/dL | [facility] - | | | GLUCOSE, | | | [facility] | | | POC | | | [facility] | | | | | | OF CARE | | | | | | TESTS | | + +---------+ + + + + + | Specimen | + + | Blood | + + + + + + + | Performing | Address | City/State/Zipcode | Phone Number | | Organization | | | | + + + + + | [facility] | [address] | [place], [place] | | | [facility] | [address] | [address] | | | TESTS | | | | + + + + + CAPILLARY BLOOD GLUCOSE (NO CHG), POC (08/21/2019 12:52 PM PDT) + +---------+ + + + | Component | Value | Ref Range | Performed | Pathologist | | | | | At | Signature | + +---------+ + + + | BLOOD | 205 (H) | 70 - 99 mg/dL | [facility] - | | | GLUCOSE, | | | [facility] | | | POC | | | [facility] | | | | | | OF CARE | | | | | | TESTS | | + +---------+ + + + + + | Specimen | + + | Blood | + + + + + + + | Performing | Address | City/State/Zipcode | Phone Number | | Organization | | | | + + + + + | [facility] | [address] | [place], [place] | | | [place] [place] | [address] | [address] | | | TESTS | | | | + + + + + CAPILLARY BLOOD GLUCOSE (NO CHG), POC (08/21/2019 7:37 AM PDT) + +---------+ + + + | Component | Value | Ref Range | Performed | Pathologist | | | | | At | Signature | + +---------+ + + + | BLOOD | 201 (H) | 70 - 99 mg/dL | [facility] - | | | GLUCOSE, | | | [facility] | | | POC | | | [facility] [place] | | | | | | OF CARE | | | | | | TESTS | | + +---------+ + + + + + | Specimen | + + | Blood | + + + + + + + | Performing | Address | City/State/Zipcode | Phone Number | | Organization | | | | + + + + + | [facility] | [address] | [place], [place] | | | [facility] | [facility] | [address] | | | TESTS | | | | + + + + + CBC AND AUTO DIFF (08/21/2019 6:58 AM PDT) + + + + + + | Component | Value | Ref Range | Performed | Pathologist | | | | | At | Signature | + + + + + + | WHITE CELL | 10.19 | 3.50 - 10.80 | [facility] | | | COUNT | | K/cu mm | LABORATORY | | | | | | SERVICES, | | | | | | CORE | | + + + + + + | RED CELL | 3.46 (L) | 4.50 - 6.00 | [facility] | | | COUNT | | M/cu mm | LABORATORY | | | | | | SERVICES, | | | | | | CORE | | + + + + + + | HEMOGLOBIN | 11.0 (L) | 13.5 - 17.5 | [facility] | | | | | g/dL | LABORATORY | | | | | | SERVICES, | | | | | | CORE | | + + + + + + | HEMATOCRIT | 34.2 (L) | 41.0 - 53.0 % | [facility] | | | | | | LABORATORY | | | | | | SERVICES, | | | | | | CORE | | + + + + + + | MCV | 98.8 | 80.0 - 100.0 fL | [facility] | | | | | | LABORATORY | | | | | | SERVICES, | | | | | | CORE | | + + + + + + | MCHC | 32.2 | 32.0 - 36.0 | [facility] | | | | | g/dL | LABORATORY | | | | | | SERVICES, | | | | | | CORE | | + + + + + + | RDW SD | 59.9 (H) | 35.1 - 46.3 fL | [facility] | | | | | | LABORATORY | | | | | | SERVICES, | | | | | | CORE | | + + + + + + | PLATELET | 68 (L) | 150 - 400 K/cu | [facility] | | | COUNT | | mm | LABORATORY | | | | | | SERVICES, | | | | | | CORE | | + + + + + + | MPV | 10.5 | 9.7 - 12.3 fL | [facility] | | | | | | LABORATORY | | | | | | SERVICES, | | | | | | CORE | | + + + + + + | NRBC% | 0.3 | 0.0 - 0.3 % | [facility] | | | | | | LABORATORY | | | | | | SERVICES, | | | | | | CORE | | + + + + + + | NRBC# | 0.03 (H) | 0.00 - 0.02 | [facility] | | | | | K/cu mm | LABORATORY | | | | | | SERVICES, | | | | | | CORE | | + + + + + + | NEUTROPHIL | 79.2 (H) | 50.0 - 70.0 % | [facility] | | | % | | | LABORATORY | | | | | | SERVICES, | | | | | | CORE | | + + + + + + | LYMPHOCYTE | 10.2 (L) | 18.0 - 42.0 % | [facility] | | | % | | | LABORATORY | | | | | | SERVICES, | | | | | | CORE | | + + + + + + | MONOCYTE % | 7.6 | 3.5 - 9.0 % | [facility] | | | | | | LABORATORY | | | | | | SERVICES, | | | | | | CORE | | + + + + + + | EOS % | 1.5 | 1.0 - 3.0 % | [facility] | | | | | | LABORATORY | | | | | | SERVICES, | | | | | | CORE | | + + + + + + | BASO % | 0.2 | 0.0 - 2.0 % | [facility] | | | | | | LABORATORY | | | | | | SERVICES, | | | | | | CORE | | + + + + + + | IG% | 1.3 (H) | 0.0 - 1.0 % | [facility] | | | | | | LABORATORY | | | | | | SERVICES, | | | | | | CORE | | + + + + + + | NEUTROPHIL | 8.08 (H) | 1.80 - 7.70 | [facility] | | | # | | K/cu mm | LABORATORY | | | | | | SERVICES, | | | | | | CORE | | + + + + + + | LYMPHOCYTE | 1.04 | 1.00 - 4.80 | [facility] | | | # | | K/cu mm | LABORATORY | | | | | | SERVICES, | | | | | | CORE | | + + + + + + | MONOCYTE # | 0.77 | 0.10 - 0.90 | [facility] | | | | | K/cu mm | LABORATORY | | | | | | SERVICES, | | | | | | CORE | | + + + + + + | EOS # | 0.15 | 0.00 - 0.50 | [facility] | [...] + + + + | IG# | 0.13 (H) | 0.00 - 0.10 | [facility] | [...] + | [facility] | [address] | [place] [address] | | | SERVICES, CORE | [address] | | | + + + + + INR (08/21/2019 6:58 AM PDT) + + + + + + | Component | Value | Ref Range | Performed | Pathologist | | | | | At | Signature | + + + + + + | INR | 1.27 (H) | 0.90 - 1.20 INR | [...] | + + + + + | [facility] | [address] | [place] [address] | | | SERVICES, CORE | [address] | | | + + + + + TACROLIMUS, WHOLE BLOOD (08/21/2019 6:58 AM PDT) + + + + + + | Component | Value | Ref Range | Performed | Pathologist | | | | | At | Signature | + + + + + + | TACROLIMUS | 7.5Comment: Begin POD #1 | 5.0 - 15.0 | [facility] | | | ([id number]) | | ng/mL | LABORATORY | | | | | | SERVICES, | | | | | | SPECIAL IMM | | | | | | + COAG | | + + + + + + + + | Specimen | + + | Blood - Blood | | (substance) | + + + + + | Narrative | Performed At | + + + | Test performed by immunoassay using [employer] Child [employer] Adolescent [employer]ologist i2000. . | [facility] | | Samples [...] | + + + + + | [facility] | [address] | [place] [address] | | | SERVICES, SPECIAL | [address] | | | | IMM + COAG | | | | + + + + + AMYLASE, PLASMA (08/21/2019 6:58 AM PDT) + +--------+ + + + | Component | Value | Ref Range | Performed | Pathologist | | | | | At | Signature | + +--------+ + + + | AMYLASE,EZEQUIEL | 19 (L) | 25 - 115 U/L | [facility] | | | SMA | | | LABORATORY | | | | | | SERVICES, | | | | | | CORE | | + +--------+ + + + + + | Specimen | + + | Blood - Blood | | (substance) | + + + + + + + | Performing | Address | City/State/Zipcode | Phone Number | | Organization | | | | + + + + + | [facility] | [address] | [place] [address] | | | SERVICES, CORE | [address] | | | + + + + + LDH TOTAL, PLASMA (08/21/2019 6:58 AM PDT) + +---------+ + + + | Component | Value | Ref Range | Performed | Pathologist | | | | | At | Signature | + +---------+ + + + | LD TOTAL, | 218 | <=250 U/L | [facility] | | | PLASMA | | | LABORATORY | | | | | | SERVICES, | | | | | | CORE | | + +---------+ + + + | LD CMNT | No Hemo | | [facility] [...] | + + + + + | [facility] | [address] | [place] [address] | | | SERVICES, CORE | [address] | | | + + + + + PHOSPHORUS, PLASMA (08/21/2019 6:58 AM PDT) + +---------+ + + + | Component | Value | Ref Range | Performed | Pathologist | | | | | At | Signature | + +---------+ + + + | PHOSPHORUS, | 5.0 (H) | 2.4 - 4.7 mg/dL | [facility] [...] + | [facility] | [address] | [place] [address] | | | SERVICES, CORE | [address] | | | + + + + + MAGNESIUM, PLASMA (08/21/2019 6:58 AM PDT) + +-------+ + + + | Component | Value | Ref Range | Performed | Pathologist | | | | | At | Signature | + +-------+ + + + | MAGNESIUM,P | 2.5 | 1.6 - 2.6 mg/dL | [facility] [...] + | [facility] | [address] | [place] [address] | | | SERVICES, CORE | [address] | | | + + + + + COMPLETE METABOLIC SET (NA,K,CL,CO2,BUN,CREAT,GLUC,CA,AST,ALT,BILI TOTAL,ALK PHOS,ALB,PROT TOTAL) (08/21/2019 6:58 AM PDT) + + + + + + | Component | Value | Ref Range | Performed | Pathologist | | | | | At | Signature | + + + + + + | GLUCOSE, | 223 (H) | 70 - 99 mg/dL | [facility] | | | PLASMA | | | LABORATORY | | | (LAB) | | | SERVICES, | | | | | | CORE | | + + + + + + | BUN, PLASMA | 129 (H) | 6 - 20 mg/dL | [facility] | | | (LAB) | | | LABORATORY | | | | | | SERVICES, | | | | | | CORE | | + + + + + + | CREATININE | 2.40 (H) | 0.70 - 1.30 | [facility] | | | PLASMA | | mg/dL | LABORATORY | | | (LAB) | | | SERVICES, | | | | | | CORE | | + + + + + + | EGFR | 34 (L) | >60 mL/min | [facility] | | | - | | | LABORATORY | | | TURKISH | | | SERVICES, | | | | | | CORE | | + + + + + + | EGFR NON | 28 (L) | >60 mL/min | [facility] | | | -JARRED | | | LABORATORY | | | RICAN | | | SERVICES, | | | | | | CORE | | + + + + + + | SODIUM, | 132 (L) | 136 - 145 | [facility] | | | PLASMA | | mmol/L | LABORATORY | | | (LAB) | | | SERVICES, | | | | | | CORE | | + + + + + + | POTASSIUM, | 4.6 | 3.4 - 5.0 | [facility] | [...] + + + + | CALCIUM, | 8.7 | 8.6 - 10.2 | [facility] | | | PLASMA | | mg/dL | LABORATORY | | | (LAB) | | | SERVICES, | | | | | | CORE | | + + + + + + | CALCIUM(ALB | 8.3 (L) | 8.6 - 10.2 | [facility] | | | CORRECTED) | | mg/dL | LABORATORY | | | | | | SERVICES, | | | | | | CORE | | + + + + + + | BILIRUBIN | 1.6 (H) | 0.3 - 1.2 mg/dL | [facility] | | | TOTAL | | | LABORATORY | | | | | | SERVICES, | | | | | | CORE | | + + + + + + | TOTAL | 6.9 | 6.4 - 8.2 g/dL | [facility] | | | PROTEIN, | | | LABORATORY | | | PLASMA | | | SERVICES, | | | (LAB) | | | CORE | | + + + + + + | ALBUMIN, | 4.5 | 3.5 - 4.7 g/dL | [facility] | | | PLASMA | | | LABORATORY | | | (LAB) | | | SERVICES, | | | | | | CORE | | + + + + + + | ALK PHOS | 44 (L) | 53 - 128 U/L | [facility] | | | | | | LABORATORY | | | | | | SERVICES, | | | | | | CORE | | + + + + + + | AST(SGOT) | 15 | <=41 U/L | [facility] | | | | | | LABORATORY | | | | | | SERVICES, | | | | | | CORE | | + + + + + + | ALT (SGPT) | 82 (H) | <=60 U/L | [facility] | | | | | | LABORATORY | | | | | | SERVICES, | | | | | | CORE | | + + + + + + | ANION GAP | 7 | 4 - 11 mmol/L | [facility] [...] MDRD equation recommended by the National | [facility] | | Kidney Disease Education Program. Estimated [...] | + + + + + | [facility] [employer] | [address] | [place] [address] | | | SERVICES, CORE | [address] | | | + + + + + CARDIOLOGY (08/21/2019 12:00 AM PDT) + + + | Narrative | Performed At | + + + | | | + + + CARDIOLOGY (08/21/2019 12:00 AM PDT) + + + | Narrative | Performed At | + + + | | | + + + CAPILLARY BLOOD GLUCOSE (NO CHG), POC (08/20/2019 10:14 PM PDT) + +---------+ + + + | Component | Value | Ref Range | Performed | Pathologist | | | | | At | Signature | + +---------+ + + + | BLOOD | 274 (H) | 70 - 99 mg/dL | [facility] - | | | GLUCOSE, | | | [facility] | | | POC | | | [facility] | | | | | | OF CARE | | | | | | TESTS | | + +---------+ + + + + + | Specimen | + + | Blood | + + + + + + + | Performing | Address | City/State/Zipcode | Phone Number | | Organization | | | | + + + + + | [facility] | [address] | [place], [place] | | | [place] [place] | [facility] | [address] | | | TESTS | | | | + + + + + CAPILLARY BLOOD GLUCOSE (NO CHG), POC (08/20/2019 7:19 PM PDT) + +---------+ + + + | Component | Value | Ref Range | Performed | Pathologist | | | | | At | Signature | + +---------+ + + + | BLOOD | 364 (H) | 70 - 99 mg/dL | [facility] - | | | GLUCOSE, | | | [facility] | | | POC | | | [facility] [place] | | | | | | OF CARE | | | | | | TESTS | | + +---------+ + + + + + | Specimen | + + | Blood | + + + + + + + | Performing | Address | City/State/Zipcode | Phone Number | | Organization | | | | + + + + + | [facility] | [address] | [place], [place] | | | [facility] | [facility] | [address] | | | TESTS | | | | + + + + + 12 LEAD ECG (08/20/2019 12:50 PM PDT) + + + + + + | Component | Value | Ref Range | Performed | Pathologist | | | | | At | Signature | + + + + + + | VENTRICULAR | 82 | bpm | [facility] | | | RATE | | | OF | | | | | | CARDIOLOGY | | + + + + + + | ATRIAL RATE | 82 | ms | [facility] | | | | | | OF | | | | | | CARDIOLOGY | | + + + + + + | P-R | 195 | ms | [facility] | | | INTERVAL | | | OF | | | | | | CARDIOLOGY | | + + + + + + | P AXIS | 38 | deg | [facility] | | | | | | OF | | | | | | CARDIOLOGY | | + + + + + + | QRS | 146 | ms | [facility] | | | DURATION | | | OF | | | | | | CARDIOLOGY | | + + + + + + | QT | 390 | ms | [facility] | | | | | | OF | | | | | | CARDIOLOGY | | + + + + + + | ARASELI | 455 | ms | [facility] | | | | | | OF | | | | | | CARDIOLOGY | | + + + + + + | R AXIS | 81 | deg | [facility] | | | | | | OF | | | | | | CARDIOLOGY | | + + + + + + | T AXIS | 133 | deg | [facility] | | | | | | OF | | | | | | CARDIOLOGY | | + + + + + + | ECG | Sinus rhythm | | [facility] | | | IMPRESSION | | | OF | | | | | | CARDIOLOGY | | + + + + + + | ECG | Probable left atrial | | [facility] | | | IMPRESSION | enlargement | | OF | | | | | | CARDIOLOGY | | + + + + + + | ECG | Right bundle branch | | [facility] | | | IMPRESSION | block | | OF | | | | | | CARDIOLOGY | | + + + + + + | ECG | Abnormal T, consider | | [facility] | | | IMPRESSION | ischemia, lateral leads- | | OF | | | | ABNORMAL ECG - | | CARDIOLOGY | | + + + + + + | ECG | Electronically signed | | [facility] | | | IMPRESSION | by: DOUG CASTILLO | | OF | | | | 08-20-2019 14:07:24 | | CARDIOLOGY | | + + [...] DEPT OF | [address] | [place], [place] | | | CARDIOLOGY | [address] | [address] | | + + + + + CAPILLARY BLOOD GLUCOSE (NO CHG), POC (08/20/2019 11:41 AM PDT) + +---------+ + + + | Component | Value | Ref Range | Performed | Pathologist | | | | | At | Signature | + +---------+ + + + | BLOOD | 157 (H) | 70 - 99 mg/dL | [facility] - | | | GLUCOSE, | | | [facility] | | | POC | | | [facility] | | | | | | OF CARE | | | | | | TESTS | | + +---------+ + + + + + | Specimen | + + | Blood | + + + + + + + | Performing | Address | City/State/Zipcode | Phone Number | | Organization | | | | + + + + + | [facility] | [address] | [place], [place] | | | [place] [place] | [facility] | [address] | | | TESTS | | | | + + + + + CAPILLARY BLOOD GLUCOSE (NO CHG), POC (08/20/2019 10:55 AM PDT) + +---------+ + + + | Component | Value | Ref Range | Performed | Pathologist | | | | | At | Signature | + +---------+ + + + | BLOOD | 172 (H) | 70 - 99 mg/dL | [facility] - | | | GLUCOSE, | | | [facility] | | | POC | | | [facility] | | | | | | OF CARE | | | | | | TESTS | | + +---------+ + + + + + | Specimen | + + | Blood | + + + + + + + | Performing | Address | City/State/Zipcode | Phone Number | | Organization | | | | + + + + + | [facility] | [address] | [place], [place] | | | [facility] | [address] | [address] | | | TESTS | | | | + + + + + CAPILLARY BLOOD GLUCOSE (NO CHG), POC (08/20/2019 10:04 AM PDT) + +---------+ + + + | Component | Value | Ref Range | Performed | Pathologist | | | | | At | Signature | + +---------+ + + + | BLOOD | 154 (H) | 70 - 99 mg/dL | [facility] - | | | GLUCOSE, | | | [facility] | | | POC | | | [facility] | | | | | | OF CARE | | | | | | TESTS | | + +---------+ + + + + + | Specimen | + + | Blood | + + + + + + + | Performing | Address | City/State/Zipcode | Phone Number | | Organization | | | | + + + + + | [facility] | [address] | [place], [place] | | | [facility] [place] | [facility] | [address] | | | TESTS | | | | + + + + + CAPILLARY BLOOD GLUCOSE (NO CHG), POC (08/20/2019 9:04 AM PDT) + +---------+ + + + | Component | Value | Ref Range | Performed | Pathologist | | | | | At | Signature | + +---------+ + + + | BLOOD | 126 (H) | 70 - 99 mg/dL | [facility] - | | | GLUCOSE, | | | [facility] | | | POC | | | [facility] [place] | | | | | | OF CARE | | | | | | TESTS | | + +---------+ + + + + + | Specimen | + + | Blood | + + + + + + + | Performing | Address | City/State/Zipcode | Phone Number | | Organization | | | | + + + + + | [facility] | [address] | [place], [place] | | | [facility] | [facility] | [address] | | | TESTS | | | | + + + + + CAPILLARY BLOOD GLUCOSE (NO CHG), POC (08/20/2019 8:20 AM PDT) + +---------+ + + + | Component | Value | Ref Range | Performed | Pathologist | | | | | At | Signature | + +---------+ + + + | BLOOD | 132 (H) | 70 - 99 mg/dL | [facility] - | | | GLUCOSE, | | | [facility] | | | POC | | | [facility] | | | | | | OF CARE | | | | | | TESTS | | + +---------+ + + + + + | Specimen | + + | Blood | + + + + + + + | Performing | Address | City/State/Zipcode | Phone Number | | Organization | | | | + + + + + | [facility] | [address] | [place], [place] | | | [facility] | [address] | [address] | | | TESTS | | | | + + + + + CAPILLARY BLOOD GLUCOSE (NO CHG), POC (08/20/2019 7:46 AM PDT) + +---------+ + + + | Component | Value | Ref Range | Performed | Pathologist | | | | | At | Signature | + +---------+ + + + | BLOOD | 142 (H) | 70 - 99 mg/dL | [facility] | | | GLUCOSE, | | | [facility] | | | POC | | | [facility] | | | | | | OF CARE | | | | | | TESTS | | + +---------+ + + + + + | Specimen | + + | Blood | + + + + + + + | Performing | Address | City/State/Zipcode | Phone Number | | Organization | | | | + + + + + | [facility] | [address] | [place], [place] | | | [facility] [place] | [facility] | [phone] | | | TESTS | | | | + + + + + CAPILLARY BLOOD GLUCOSE (NO CHG), POC (08/20/2019 7:02 AM PDT) + +---------+ + + + | Component | Value | Ref Range | Performed | Pathologist | | | | | At | Signature | + +---------+ + + + | BLOOD | 148 (H) | 70 - 99 mg/dL | [facility] - | | | GLUCOSE, | | | [facility] | | | POC | | | [place] [place] | | | | | | OF CARE | | | | | | TESTS | | + +---------+ + + + + + | Specimen | + + | Blood | + + + + + + + | Performing | Address | City/State/Zipcode | Phone Number | | Organization | | | | + + + + + | [facility] | [address] | [place], [place] | | | [facility] | [facility] | [address] | | | TESTS | | | | + + + + + CBC AND AUTO DIFF (08/20/2019 6:09 AM PDT) + + + + + + | Component | Value | Ref Range | Performed | Pathologist | | | | | At | Signature | + + + + + + | WHITE CELL | 5.97 | 3.50 - 10.80 | [facility] | | | COUNT | | K/cu mm | LABORATORY | | | | | | SERVICES, | | | | | | CORE | | + + + + + + | RED CELL | 3.04 (L) | 4.50 - 6.00 | [facility] | | | COUNT | | M/cu mm | LABORATORY | | | | | | SERVICES, | | | | | | CORE | | + + + + + + | HEMOGLOBIN | 9.6 (L) | 13.5 - 17.5 | [facility] | | | | | g/dL | LABORATORY | | | | | | SERVICES, | | | | | | CORE | | + + + + + + | HEMATOCRIT | 29.5 (L) | 41.0 - 53.0 % | [facility] | | | | | | LABORATORY | | | | | | SERVICES, | | | | | | CORE | | + + + + + + | MCV | 97.0 | 80.0 - 100.0 fL | [facility] | | | | | | LABORATORY | | | | | | SERVICES, | | | | | | CORE | | + + + + + + | MCHC | 32.5 | 32.0 - 36.0 | [facility] | | | | | g/dL | LABORATORY | | | | | | SERVICES, | | | | | | CORE | | + + + + + + | RDW SD | 61.0 (H) | 35.1 - 46.3 fL | [facility] | | | | | | LABORATORY | | | | | | SERVICES, | | | | | | CORE | | + + + + + + | PLATELET | 38 (L) | 150 - 400 K/cu | [facility] | | | COUNT | | mm | LABORATORY | | | | | | SERVICES, | | | | | | CORE | | + + + + + + | MPV | 11.0 | 9.7 - 12.3 fL | [facility] | | | | | | LABORATORY | | | | | | SERVICES, | | | | | | CORE | | + + + + + + | NRBC% | 0.3 | 0.0 - 0.3 % | [facility] | | | | | | LABORATORY | | | | | | SERVICES, | | | | | | CORE | | + + + + + + | NRBC# | 0.02 | 0.00 - 0.02 | [facility] | | | | | K/cu mm | LABORATORY | | | | | | SERVICES, | | | | | | CORE | | + + + + + + | NEUTROPHIL | 82.1 (H) | 50.0 - 70.0 % | [facility] | | | % | | | LABORATORY | | | | | | SERVICES, | | | | | | CORE | | + + + + + + | LYMPHOCYTE | 9.5 (L) | 18.0 - 42.0 % | [facility] | | | % | | | LABORATORY | | | | | | SERVICES, | | | | | | CORE | | + + + + + + | MONOCYTE % | 6.9 | 3.5 - 9.0 % | [facility] | | | | | | LABORATORY | | | | | | SERVICES, | | | | | | CORE | | + + + + + + | EOS % | 0.5 (L) | 1.0 - 3.0 % | [facility] | | | | | | LABORATORY | | | | | | SERVICES, | | | | | | CORE | | + + + + + + | BASO % | 0.2 | 0.0 - 2.0 % | [facility] | | | | | | LABORATORY | | | | | | SERVICES, | | | | | | CORE | | + + + + + + | IG% | 0.8 | 0.0 - 1.0 % | [facility] | | | | | | LABORATORY | | | | | | SERVICES, | | | | | | CORE | | + + + + + + | NEUTROPHIL | 4.90 | 1.80 - 7.70 | [facility] | | | # | | K/cu mm | LABORATORY | | | | | | SERVICES, | | | | | | CORE | | + + + + + + | LYMPHOCYTE | 0.57 (L) | 1.00 - 4.80 | [facility] | | | # | | K/cu mm | LABORATORY | | | | | | SERVICES, | | | | | | CORE | | + + + + + + | MONOCYTE # | 0.41 | 0.10 - 0.90 | [facility] | [...] + + + | BASO # | 0.01 | 0.00 - 0.10 | [facility] | | | | | K/cu mm | LABORATORY | | | | | | SERVICES, | | | | | | CORE | | + + + + + + | IG# | 0.05 | 0.00 - 0.10 | [facility] | [...] + | [facility] | [id number] [address] | [place] [address] | | | SERVICES, CORE | [address] | | | + + + + + INR (08/20/2019 6:09 AM PDT) + + + + + + | Component | Value | Ref Range | Performed | Pathologist | | | | | At | Signature | + + + + + + | INR | 1.33 (H) | 0.90 - 1.20 INR | [...] | + + + + + | [facility] | [address] | [place] [address] | | | SERVICES, CORE | [address] | | | + + + + + PREALBUMIN (08/20/2019 6:09 AM PDT) + +-------+ + + + | Component | Value | Ref Range | Performed | Pathologist | | | | | At | Signature | + +-------+ + + + | PREALBUMIN | 23.0 | 17.0 - 42.0 | [facility] | | | | | mg/dL | [facility] - | | | | | | [place] | | + +-------+ + + + + + | Specimen | + + | Blood - Blood | | (substance) | + + + + + + + | Performing | Address | City/State/Zipcode | Phone Number | | Organization | | | | + + + + + | [facility] | [address] | [place] [address] | | | [place] | | | | + + + + + TACROLIMUS, WHOLE BLOOD (08/20/2019 6:09 AM PDT) + + + + + + | Component | Value | Ref Range | Performed | Pathologist | | | | | At | Signature | + + + + + + | TACROLIMUS | 5.9Comment: Begin POD #1 | 5.0 - 15.0 | [facility] | | | ([address]) | | ng/mL | LABORATORY | | | | | | SERVICES, | | | | | | SPECIAL IMM | | | | | | + COAG | | + + + + + + + + | Specimen | + + | Blood - Blood | | (substance) | + + + + + | Narrative | Performed At | + + + | Test performed by immunoassay using Palafox Child And Adolescent Psychologist i2000. . | [facility] | | Samples [...] | + + + + + | [facility] | [address] | [place] [address] | | | SPECIAL CLAUDIA | [address] | | | | IMM + COAG | | | | + + + + + AMYLASE, PLASMA (08/20/2019 6:09 AM PDT) + +--------+ + + + | Component | Value | Ref Range | Performed | Pathologist | | | | | At | Signature | + +--------+ + + + | AMYLASE,EZEQUIEL | 18 (L) | 25 - 115 U/L | [facility] | | | SMA | | | LABORATORY | | | | | | SERVICES, | | | | | | CORE | | + +--------+ + + + + + | Specimen | + + | Blood - Blood | | (substance) | + + + + + + + | Performing | Address | City/State/Zipcode | Phone Number | | Organization | | | | + + + + + | [facility] | [address] | [place] [address] | | | SERVICES, CORE | [address] | | | + + + + + LDH TOTAL, PLASMA (08/20/2019 6:09 AM PDT) + +---------+ + + + | Component | Value | Ref Range | Performed | Pathologist | | | | | At | Signature | + +---------+ + + + | LD TOTAL, | 184 | <=250 U/L | [facility] | | | PLASMA | | | LABORATORY | | | | | | SERVICES, | | | | | | CORE | | + +---------+ + + + | LD CMNT | No Hemo | | [facility] [...] | [facility] | [address] | [place] [address] | | | CLAUDIA, ARTIS | [address] | | | + + + + + PHOSPHORUS, PLASMA (08/20/2019 6:09 AM PDT) + +---------+ + + + | Component | Value | Ref Range | Performed | Pathologist | | | | | At | Signature | + +---------+ + + + | PHOSPHORUS, | 5.4 (H) | 2.4 - 4.7 mg/dL | [facility] [...] | + + + + + | [facility] | [address] | [place] [address] | | | SERVICES, CORE | [address] | | | + + + + + MAGNESIUM, PLASMA (08/20/2019 6:09 AM PDT) + +---------+ + + + | Component | Value | Ref Range | Performed | Pathologist | | | | | At | Signature | + +---------+ + + + | MAGNESIUM,P | 2.7 (H) | 1.6 - 2.6 mg/dL | [facility] | | | LASMA | | | [...] | + + + + + | [facility] | [address] [facility] | [place] [address] | | | SERVICES, CORE | [address] | | | + + + + + COMPLETE METABOLIC SET (NA,K,CL,CO2,BUN,CREAT,GLUC,CA,AST,ALT,BILI TOTAL,ALK PHOS,ALB,PROT TOTAL) (08/20/2019 6:09 AM PDT) + + + + + + | Component | Value | Ref Range | Performed | Pathologist | | | | | At | Signature | + + + + + + | GLUCOSE, | 160 (H) | 70 - 99 mg/dL | [facility] | | | PLASMA | | | LABORATORY | | | (LAB) | | | SERVICES, | | | | | | CORE | | + + + + + + | BUN, PLASMA | 107 (H) | 6 - 20 mg/dL | [facility] | | | (LAB) | | | LABORATORY | | | | | | SERVICES, | | | | | | CORE | | + + + + + + | CREATININE | 2.41 (H) | 0.70 - 1.30 | [facility] | | | PLASMA | | mg/dL | LABORATORY | | | (LAB) | | | SERVICES, | | | | | | CORE | | + + + + + + | EGFR | 34 (L) | >60 mL/min | [facility] | | | - | | | LABORATORY | | | TURKISH | | | SERVICES, | | | | | | CORE | | + + + + + + | EGFR NON | 28 (L) | >60 mL/min | [facility] | | | -JARRED | | | LABORATORY | | | [...] + + | POTASSIUM, | 4.8 | 3.4 - 5.0 | [facility] | | | PLASMA | | mmol/L | LABORATORY | | | (LAB) | | | SERVICES, | | | | | | CORE | | + + + + + + | CHLORIDE, | 108 | 97 - 108 mmol/L | [facility] | | | PLASMA | | | LABORATORY | | | (LAB) | | | SERVICES, | | | | | | CORE | | + + + + + + | TOTAL CO2, | 21 | 21 - 32 mmol/L | [facility] | | | PLASMA | | | LABORATORY | | | (LAB) | | | SERVICES, | | | | | | CORE | | + + + + + + | CALCIUM, | 8.5 (L) | 8.6 - 10.2 | [facility] | | | PLASMA | | mg/dL | LABORATORY | | | (LAB) | | | SERVICES, | | | | | | CORE | | + + + + + + | CALCIUM(ALB | 8.7 | 8.6 - 10.2 | [facility] | | | CORRECTED) | | mg/dL | LABORATORY | | | | | | SERVICES, | | | | | | CORE | | + + + + + + | BILIRUBIN | 1.5 (H) | 0.3 - 1.2 mg/dL | [facility] | | | TOTAL | | | LABORATORY | | | | | | SERVICES, | | | | | | CORE | | + + + + + + | TOTAL | 6.1 (L) | 6.4 - 8.2 g/dL | [facility] | | | PROTEIN, | | | LABORATORY | | | PLASMA | | | SERVICES, | | | (LAB) | | | CORE | | + + + + + + | ALBUMIN, | 3.8 | 3.5 - 4.7 g/dL | [facility] | | | PLASMA | | | LABORATORY | | | (LAB) | | | SERVICES, | | | | | | CORE | | + + + + + + | ALK PHOS | 39 (L) | 53 - 128 U/L | [facility] | | | | | | LABORATORY | | | | | | SERVICES, | | | | | | CORE | | + + + + + + | AST(SGOT) | 18 | <=41 U/L | [facility] | | | | | | LABORATORY | | | | | | SERVICES, | | | | | | CORE | | + + + + + + | ALT (SGPT) | 101 (H) | <=60 U/L | [facility] | | | | | | LABORATORY | | | | | | SERVICES, | | | | | | CORE | | + + + + + + | ANION GAP | 8 | 4 - 11 mmol/L | [facility] | | | | | | LABORATORY | | | | | | SERVICES, | | | | | | CORE | | + + + + + + | ANION | 8 | 4 - 11 mmol/L | [facility] [...] | + + + + + | [facility] | [address] | [place] [address] | | | SERVICES, CORE | [address] | | | + + + + + CAPILLARY BLOOD GLUCOSE (NO CHG), POC (08/20/2019 5:59 AM PDT) + +---------+ + + + | Component | Value | Ref Range | Performed | Pathologist | | | | | At | Signature | + +---------+ + + + | BLOOD | 139 (H) | 70 - 99 mg/dL | [facility] | | | GLUCOSE, | | | [facility] | | | POC | | | [facility] | | | | | | OF CARE | | | | | | TESTS | | + +---------+ + + + + + | Specimen | + + | Blood | + + + + + + + | Performing | Address | City/State/Zipcode | Phone Number | | Organization | | | | + + + + + | [facility] | [address] | [place], [place] | | | [facility] | [address] | [address] | | | TESTS | | | | + + + + + CAPILLARY BLOOD GLUCOSE (NO CHG), POC (08/20/2019 4:43 AM PDT) + +---------+ + + + | Component | Value | Ref Range | Performed | Pathologist | | | | | At | Signature | + +---------+ + + + | BLOOD | 143 (H) | 70 - 99 mg/dL | [facility] | | | GLUCOSE, | | | [facility] | | | POC | | | [facility] | | | | | | OF CARE | | | | | | TESTS | | + +---------+ + + + + + | Specimen | + + | Blood | + + + + + + + | Performing | Address | City/State/Zipcode | Phone Number | | Organization | | | | + + + + + | [facility] | [address] | [place], [place] | | | [facility] | [address] | [address] | | | TESTS | | | | + + + + + CAPILLARY BLOOD GLUCOSE (NO CHG), POC (08/20/2019 3:44 AM PDT) + +---------+ + + + | Component | Value | Ref Range | Performed | Pathologist | | | | | At | Signature | + +---------+ + + + | BLOOD | 140 (H) | 70 - 99 mg/dL | [facility] | | | GLUCOSE, | | | [place] | | | POC | | | [facility] | | | | | | OF CARE | | | | | | TESTS | | + +---------+ + + + + + | Specimen | + + | Blood | + + + + + + + | Performing | Address | City/State/Zipcode | Phone Number | | Organization | | | | + + + + + | [facility] | [address] | [place], [place] | | | [facility] | [address] | [address] | | | TESTS | | | | + + + + + CAPILLARY BLOOD GLUCOSE (NO CHG), POC (08/20/2019 2:40 AM PDT) + +---------+ + + + | Component | Value | Ref Range | Performed | Pathologist | | | | | At | Signature | + +---------+ + + + | BLOOD | 144 (H) | 70 - 99 mg/dL | [facility] | | | GLUCOSE, | | | [facility] | | | POC | | | [facility] | | | | | | OF CARE | | | | | | TESTS | | + +---------+ + + + + + | Specimen | + + | Blood | + + + + + + + | Performing | Address | City/State/Zipcode | Phone Number | | Organization | | | | + + + + + | [facility] | [address] | [place], [place] | | | [facility] | [address] | [address] | | | TESTS | | | | + + + + + CAPILLARY BLOOD GLUCOSE (NO CHG), POC (08/20/2019 1:41 AM PDT) + +---------+ + + + | Component | Value | Ref Range | Performed | Pathologist | | | | | At | Signature | + +---------+ + + + | BLOOD | 134 (H) | 70 - 99 mg/dL | [facility] | | | GLUCOSE, | | | [facility] | | | POC | | | [facility] | | | | | | OF CARE | | | | | | TESTS | | + +---------+ + + + + + | Specimen | + + | Blood | + + + + + + + | Performing | Address | City/State/Zipcode | Phone Number | | Organization | | | | + + + + + | [facility] | [address] | [place], [place] | | | [facility] | [facility] | [address] | | | TESTS | | | | + + + + + CAPILLARY BLOOD GLUCOSE (NO CHG), POC (08/20/2019 12:40 AM PDT) + +---------+ + + + | Component | Value | Ref Range | Performed | Pathologist | | | | | At | Signature | + +---------+ + + + | BLOOD | 133 (H) | 70 - 99 mg/dL | [facility] - | | | GLUCOSE, | | | [facility] | | | POC | | | [facility] | | | | | | OF CARE | | | | | | TESTS | | + +---------+ + + + + + | Specimen | + + | Blood | + + + + + + + | Performing | Address | City/State/Zipcode | Phone Number | | Organization | | | | + + + + + | [facility] | [address] | [place], [place] | | | [facility] | [address] | [address] | | | TESTS | | | | + + + + + CAPILLARY BLOOD GLUCOSE (NO CHG), POC (08/19/2019 11:38 PM PDT) + +---------+ + + + | Component | Value | Ref Range | Performed | Pathologist | | | | | At | Signature | + +---------+ + + + | BLOOD | 141 (H) | 70 - 99 mg/dL | [facility] - | | | GLUCOSE, | | | [facility] | | | POC | | | [facility] | | | | | | OF CARE | | | | | | TESTS | | + +---------+ + + + + + | Specimen | + + | Blood | + + + + + + + | Performing | Address | City/State/Zipcode | Phone Number | | Organization | | | | + + + + + | [facility] | [address] | [place], [place] | | | [facility] | [facility] | [address] | | | TESTS | | | | + + + + + CAPILLARY BLOOD GLUCOSE (NO CHG), POC (08/19/2019 10:32 PM PDT) + +---------+ + + + | Component | Value | Ref Range | Performed | Pathologist | | | | | At | Signature | + +---------+ + + + | BLOOD | 187 (H) | 70 - 99 mg/dL | [facility] - | | | GLUCOSE, | | | [facility] | | | POC | | | [facility] | | | | | | OF CARE | | | | | | TESTS | | + +---------+ + + + + + | Specimen | + + | Blood | + + + + + + + | Performing | Address | City/State/Zipcode | Phone Number | | Organization | | | | + + + + + | [facility] | [address] | [place], [place] | | | [facility] | [address] | [address] | | | TESTS | | | | + + + + + CAPILLARY BLOOD GLUCOSE (NO CHG), POC (08/19/2019 9:33 PM PDT) + +---------+ + + + | Component | Value | Ref Range | Performed | Pathologist | | | | | At | Signature | + +---------+ + + + | BLOOD | 170 (H) | 70 - 99 mg/dL | [facility] - | | | GLUCOSE, | | | [facility] | | | POC | | | [facility] | | | | | | OF CARE | | | | | | TESTS | | + +---------+ + + + + + | Specimen | + + | Blood | + + + + + + + | Performing | Address | City/State/Zipcode | Phone Number | | Organization | | | | + + + + + | [facility] | [address] | [place], [place] | | | [facility] | [address] | [address] | | | TESTS | | | | + + + + + CAPILLARY BLOOD GLUCOSE (NO CHG), POC (08/19/2019 8:21 PM PDT) + +---------+ + + + | Component | Value | Ref Range | Performed | Pathologist | | | | | At | Signature | + +---------+ + + + | BLOOD | 213 (H) | 70 - 99 mg/dL | [facility] - | | | GLUCOSE, | | | [facility] | | | POC | | | [facility] | | | | | | OF CARE | | | | | | TESTS | | + +---------+ + + + + + | Specimen | + + | Blood | + + + + + + + | Performing | Address | City/State/Zipcode | Phone Number | | Organization | | | | + + + + + | [facility] | [address] | [place], [place] | | | [facility] | [address] | [address] | | | TESTS | | | | + + + + + CAPILLARY BLOOD GLUCOSE (NO CHG), POC (08/19/2019 7:37 PM PDT) + +---------+ + + + | Component | Value | Ref Range | Performed | Pathologist | | | | | At | Signature | + +---------+ + + + | BLOOD | 188 (H) | 70 - 99 mg/dL | [facility] - | | | GLUCOSE, | | | [place] | | | POC | | | [facility] | | | | | | OF CARE | | | | | | TESTS | | + +---------+ + + + + + | Specimen | + + | Blood | + + + + + + + | Performing | Address | City/State/Zipcode | Phone Number | | Organization | | | | + + + + + | [facility] | [address] | [place], [place] | | | [facility] | [facility] | [address] | | | TESTS | | | | + + + + + CAPILLARY BLOOD GLUCOSE (NO CHG), POC (08/19/2019 6:56 PM PDT) + +---------+ + + + | Component | Value | Ref Range | Performed | Pathologist | | | | | At | Signature | + +---------+ + + + | BLOOD | 150 (H) | 70 - 99 mg/dL | [facility] - | | | GLUCOSE, | | | [facility] | | | POC | | | [facility] | | | | | | OF CARE | | | | | | TESTS | | + +---------+ + + + + + | Specimen | + + | Blood | + + + + + + + | Performing | Address | City/State/Zipcode | Phone Number | | Organization | | | | + + + + + | [facility] | [address] | [place], [place] | | | [facility] | [address] | [address] | | | TESTS | | | | + + + + + CAPILLARY BLOOD GLUCOSE (NO CHG), POC (08/19/2019 6:24 PM PDT) + +---------+ + + + | Component | Value | Ref Range | Performed | Pathologist | | | | | At | Signature | + +---------+ + + + | BLOOD | 152 (H) | 70 - 99 mg/dL | [facility] | | | GLUCOSE, | | | [facility] | | | POC | | | [facility] | | | | | | OF CARE | | | | | | TESTS | | + +---------+ + + + + + | Specimen | + + | Blood | + + + + + + + | Performing | Address | City/State/Zipcode | Phone Number | | Organization | | | | + + + + + | [facility] | [address] | [place], [place] | | | [facility] | [address] | [address] | | | TESTS | | | | + + + + + CAPILLARY BLOOD GLUCOSE (NO CHG), POC (08/19/2019 5:11 PM PDT) + +---------+ + + + | Component | Value | Ref Range | Performed | Pathologist | | | | | At | Signature | + +---------+ + + + | BLOOD | 160 (H) | 70 - 99 mg/dL | [facility] - | | | GLUCOSE, | | | [facility] | | | POC | | | [facility] | | | | | | OF CARE | | | | | | TESTS | | + +---------+ + + + + + | Specimen | + + | Blood | + + + + + + + | Performing | Address | City/State/Zipcode | Phone Number | | Organization | | | | + + + + + | [facility] | [address] | [place], [place] | | | [facility] | [facility] | [address] | | | TESTS | | | | + + + + + CAPILLARY BLOOD GLUCOSE (NO CHG), POC (08/19/2019 4:01 PM PDT) + +---------+ + + + | Component | Value | Ref Range | Performed | Pathologist | | | | | At | Signature | + +---------+ + + + | BLOOD | 164 (H) | 70 - 99 mg/dL | [facility] - | | | GLUCOSE, | | | [facility] | | | POC | | | [facility] | | | | | | OF CARE | | | | | | TESTS | | + +---------+ + + + + + | Specimen | + + | Blood | + + + + + + + | Performing | Address | City/State/Zipcode | Phone Number | | Organization | | | | + + + + + | [facility] | [address] | [place], [place] | | | [facility] | [address] | [address] | | | TESTS | | | | + + + + + CAPILLARY BLOOD GLUCOSE (NO CHG), POC (08/19/2019 2:41 PM PDT) + +---------+ + + + | Component | Value | Ref Range | Performed | Pathologist | | | | | At | Signature | + +---------+ + + + | BLOOD | 198 (H) | 70 - 99 mg/dL | [facility] - | | | GLUCOSE, | | | [facility] | | | POC | | | [facility] | | | | | | OF CARE | | | | | | TESTS | | + +---------+ + + + + + | Specimen | + + | Blood | + + + + + + + | Performing | Address | City/State/Zipcode | Phone Number | | Organization | | | | + + + + + | [facility] | [address] | [place], [place] | | | [facility] | [facility] | [address] | | | TESTS | | | | + + + + + CAPILLARY BLOOD GLUCOSE (NO CHG), POC (08/19/2019 1:41 PM PDT) + +---------+ + + + | Component | Value | Ref Range | Performed | Pathologist | | | | | At | Signature | + +---------+ + + + | BLOOD | 172 (H) | 70 - 99 mg/dL | [facility] - | | | GLUCOSE, | | | [facility] | | | POC | | | [facility] | | | | | | OF CARE | | | | | | TESTS | | + +---------+ + + + + + | Specimen | + + | Blood | + + + + + + + | Performing | Address | City/State/Zipcode | Phone Number | | Organization | | | | + + + + + | [facility] | [address] | [place], [place] | | | [facility] | [facility] | [address] | | | TESTS | | | | + + + + + CAPILLARY BLOOD GLUCOSE (NO CHG), POC (08/19/2019 12:51 PM PDT) + +---------+ + + + | Component | Value | Ref Range | Performed | Pathologist | | | | | At | Signature | + +---------+ + + + | BLOOD | 176 (H) | 70 - 99 mg/dL | [facility] - | | | GLUCOSE, | | | [facility] | | | POC | | | [facility] | | | | | | OF CARE | | | | | | TESTS | | + +---------+ + + + + + | Specimen | + + | Blood | + + + + + + + | Performing | Address | City/State/Zipcode | Phone Number | | Organization | | | | + + + + + | [facility] | [address] | [place], [place] | | | [facility] | [address] | [address] | | | TESTS | | | | + + + + + CAPILLARY BLOOD GLUCOSE (NO CHG), POC (08/19/2019 12:07 PM PDT) + +---------+ + + + | Component | Value | Ref Range | Performed | Pathologist | | | | | At | Signature | + +---------+ + + + | BLOOD | 159 (H) | 70 - 99 mg/dL | [facility] | | | GLUCOSE, | | | [facility] | | | POC | | | [facility] | | | | | | OF CARE | | | | | | TESTS | | + +---------+ + + + + + | Specimen | + + | Blood | + + + + + + + | Performing | Address | City/State/Zipcode | Phone Number | | Organization | | | | + + + + + | [facility] | [address] | [place], [place] | | | [facility] | [facility] | [address] | | | TESTS | | | | + + + + + CAPILLARY BLOOD GLUCOSE (NO CHG), POC (08/19/2019 10:55 AM PDT) + +---------+ + + + | Component | Value | Ref Range | Performed | Pathologist | | | | | At | Signature | + +---------+ + + + | BLOOD | 161 (H) | 70 - 99 mg/dL | [facility] - | | | GLUCOSE, | | | [facility] | | | POC | | | [facility] | | | | | | OF CARE | | | | | | TESTS | | + +---------+ + + + + + | Specimen | + + | Blood | + + + + + + + | Performing | Address | City/State/Zipcode | Phone Number | | Organization | | | | + + + + + | [facility] | [address] | [place], [place] | | | [facility] | [facility] | [address] | | | TESTS | | | | + + + + + CAPILLARY BLOOD GLUCOSE (NO CHG), POC (08/19/2019 9:46 AM PDT) + +---------+ + + + | Component | Value | Ref Range | Performed | Pathologist | | | | | At | Signature | + +---------+ + + + | BLOOD | 169 (H) | 70 - 99 mg/dL | [facility] - | | | GLUCOSE, | | | [facility] | | | POC | | | [facility] | | | | | | OF CARE | | | | | | TESTS | | + +---------+ + + + + + | Specimen | + + | Blood | + + + + + + + | Performing | Address | City/State/Zipcode | Phone Number | | Organization | | | | + + + + + | [facility] | [address] | [place], [place] | | | [facility] | [address] | [address] | | | TESTS | | | | + + + + + CAPILLARY BLOOD GLUCOSE (NO CHG), POC (08/19/2019 8:42 AM PDT) + +---------+ + + + | Component | Value | Ref Range | Performed | Pathologist | | | | | At | Signature | + +---------+ + + + | BLOOD | 185 (H) | 70 - 99 mg/dL | [facility] - | | | GLUCOSE, | | | [place] | | | POC | | | [facility] | | | | | | OF CARE | | | | | | TESTS | | + +---------+ + + + + + | Specimen | + + | Blood | + + + + + + + | Performing | Address | City/State/Zipcode | Phone Number | | Organization | | | | + + + + + | [facility] | [address] | [place], [place] | | | [facility] [place] | [facility] | [address] | | | TESTS | | | | + + + + + CAPILLARY BLOOD GLUCOSE (NO CHG), POC (08/19/2019 8:00 AM PDT) + +---------+ + + + | Component | Value | Ref Range | Performed | Pathologist | | | | | At | Signature | + +---------+ + + + | BLOOD | 157 (H) | 70 - 99 mg/dL | [facility] - | | | GLUCOSE, | | | [facility] | | | POC | | | [facility] | | | | | | OF CARE | | | | | | TESTS | | + +---------+ + + + + + | Specimen | + + | Blood | + + + + + + + | Performing | Address | City/State/Zipcode | Phone Number | | Organization | | | | + + + + + | [facility] | [address] | [place], [place] | | | [facility] | [address] | [address] | | | TESTS | | | | + + + + + CAPILLARY BLOOD GLUCOSE (NO CHG), POC (08/19/2019 7:20 AM PDT) + +---------+ + + + | Component | Value | Ref Range | Performed | Pathologist | | | | | At | Signature | + +---------+ + + + | BLOOD | 131 (H) | 70 - 99 mg/dL | [facility] - | | | GLUCOSE, | | | [place] | | | POC | | | [facility] | | | | | | OF CARE | | | | | | TESTS | | + +---------+ + + + + + | Specimen | + + | Blood | + + + + + + + | Performing | Address | City/State/Zipcode | Phone Number | | Organization | | | | + + + + + | [facility] | [address] | [place], [place] | | | [facility] | [facility] | [phone] | | | TESTS | | | | + + + + + CBC AND AUTO DIFF (08/19/2019 6:24 AM PDT) + + + + + + | Component | Value | Ref Range | Performed | Pathologist | | | | | At | Signature | + + + + + + | WHITE CELL | 3.91 | 3.50 - 10.80 | [facility] | | | COUNT | | K/cu mm | LABORATORY | | | | | | SERVICES, | | | | | | CORE | | + + + + + + | RED CELL | 2.71 (L) | 4.50 - 6.00 | [facility] | | | COUNT | | M/cu mm | LABORATORY | | | | | | SERVICES, | | | | | | CORE | | + + + + + + | HEMOGLOBIN | 8.6 (L) | 13.5 - 17.5 | [facility] | | | | | g/dL | LABORATORY | | | | | | SERVICES, | | | | | | CORE | | + + + + + + | HEMATOCRIT | 25.8 (L) | 41.0 - 53.0 % | [facility] | | | | | | LABORATORY | | | | | | SERVICES, | | | | | | CORE | | + + + + + + | MCV | 95.2 | 80.0 - 100.0 fL | [facility] | | | | | | LABORATORY | | | | | | SERVICES, | | | | | | CORE | | + + + + + + | MCHC | 33.3 | 32.0 - 36.0 | [facility] | | | | | g/dL | LABORATORY | | | | | | SERVICES, | | | | | | CORE | | + + + + + + | RDW SD | 60.3 (H) | 35.1 - 46.3 fL | [facility] | | | | | | LABORATORY | | | | | | SERVICES, | | | | | | CORE | | + + + + + + | PLATELET | 25 (L) | 150 - 400 K/cu | [facility] | | | COUNT | | mm | LABORATORY | | | | | | SERVICES, | | | | | | CORE | | + + + + + + | MPV | 11.6 | 9.7 - 12.3 fL | [facility] | | | | | | LABORATORY | | | | | | SERVICES, | | | | | | CORE | | + + + + + + | NRBC% | 0.8 (H) | 0.0 - 0.3 % | [facility] | | | | | | LABORATORY | | | | | | SERVICES, | | | | | | CORE | | + + + + + + | NRBC# | 0.03 (H) | 0.00 - 0.02 | [facility] | | | | | K/cu mm | LABORATORY | | | | | | SERVICES, | | | | | | CORE | | + + + + + + | NEUTROPHIL | 83.0 (H) | 50.0 - 70.0 % | [facility] | | | % | | | LABORATORY | | | | | | SERVICES, | | | | | | CORE | | + + + + + + | LYMPHOCYTE | 8.7 (L) | 18.0 - 42.0 % | [facility] | | | % | | | LABORATORY | | | | | | SERVICES, | | | | | | CORE | | + + + + + + | MONOCYTE % | 7.2 | 3.5 - 9.0 % | [facility] | | | | | | LABORATORY | | | | | | SERVICES, | | | | | | CORE | | + + + + + + | EOS % | 0.3 (L) | 1.0 - 3.0 % | [facility] | | | | | | LABORATORY | | | | | | SERVICES, | | | | | | CORE | | + + + + + + | BASO % | 0.0 | 0.0 - 2.0 % | [facility] | | | | | | LABORATORY | | | | | | SERVICES, | | | | | | CORE | | + + + + + + | IG% | 0.8 | 0.0 - 1.0 % | [facility] | | | | | | LABORATORY | | | | | | SERVICES, | | | | | | CORE | | + + + + + + | NEUTROPHIL | 3.25 | 1.80 - 7.70 | [facility] | | | # | | K/cu mm | LABORATORY | | | | | | SERVICES, | | | | | | CORE | | + + + + + + | LYMPHOCYTE | 0.34 (L) | 1.00 - 4.80 | [facility] | | | # | | K/cu mm | LABORATORY | | | | | | SERVICES, | | | | | | CORE | | + + + + + + | MONOCYTE # | 0.28 | 0.10 - 0.90 | [facility] | | | | | K/cu mm | LABORATORY | | | | | | SERVICES, | | | | | | CORE | | + + + + + + | EOS # | 0.01 | 0.00 - 0.50 | [facility] | | | | | K/cu mm | LABORATORY | | | | | | SERVICES, | | | | | | CORE | | + + + + + + | BASO # | 0.00 | 0.00 - 0.10 | [facility] | [...] | + + + + + | [facility] | [address] | [place] [address] | | | SERVICES, CORE | [address] | | | + + + + + INR (08/19/2019 6:24 AM PDT) + + + + + + | Component | Value | Ref Range | Performed | Pathologist | | | | | At | Signature | + + + + + + | INR | 1.37 (H) | 0.90 - 1.20 INR | [...] mech. valves (2.5 - 3.5) INR | [facility] | + + + + + + + + | Performing | Address | City/State/Zipcode | Phone Number | | Organization | | | | + + + + + | [facility] | [address] | [place] [address] | | | [facility] [place] | [address] | | | + + + + + TACROLIMUS, WHOLE BLOOD (08/19/2019 6:24 AM PDT) + + + + + + | Component | Value | Ref Range | Performed | Pathologist | | | | | At | Signature | + + + + + + | TACROLIMUS | 3.3 (L)Comment: Begin | 5.0 - 15.0 | [facility] | | | ([address]) | POD #1 | ng/mL | LABORATORY | | | | | | SERVICES, | | | | | | SPECIAL IMM | | | | | | + COAG | | + + + + + + + + | Specimen | + + | Blood - Blood | | (substance) | + + + + + | Narrative | Performed At | + + + | Test performed by immunoassay using Palafox Child And Adolescent Psychologist i2000. . | [facility] | | Samples [...] | + + + + + | [facility] | [address] | [place] [address] | | | SERVICES, SPECIAL | [address] | | | | IMM + COAG | | | | + + + + + AMYLASE, PLASMA (08/19/2019 6:24 AM PDT) + +--------+ + + + | Component | Value | Ref Range | Performed | Pathologist | | | | | At | Signature | + +--------+ + + + | AMYLASE,EZEQUIEL | 15 (L) | 25 - 115 U/L | [facility] | | | SMA | | | LABORATORY | | | | | | SERVICES, | | | | | | CORE | | + +--------+ + + + + + | Specimen | + + | Blood - Blood | | (substance) | + + + + + + + | Performing | Address | City/State/Zipcode | Phone Number | | Organization | | | | + + + + + | [facility] | [address] | [place] [address] | | | SERVICES, CORE | [address] | | | + + + + + LDH TOTAL, PLASMA (08/19/2019 6:24 AM PDT) + +---------+ + + + | Component | Value | Ref Range | Performed | Pathologist | | | | | At | Signature | + +---------+ + + + | LD TOTAL, | 166 | <=250 U/L | [facility] | | | PLASMA | | | LABORATORY | | | | | | SERVICES, | | | | | | CORE | | + +---------+ + + + | LD CMNT | No Hemo | | [facility] [...] + | [facility] | [address] | [place] [address] | | | SERVICES, CORE | [address] | | | + + + + + PHOSPHORUS, PLASMA (08/19/2019 6:24 AM PDT) + +---------+ + + + | Component | Value | Ref Range | Performed | Pathologist | | | | | At | Signature | + +---------+ + + + | PHOSPHORUS, | 6.8 (H) | 2.4 - 4.7 mg/dL | [facility] | | | PLASMA | | | [...] + | [facility] | [address] | [place] [address] | | | SERVICES, CORE | [address] | | | + + + + + MAGNESIUM, PLASMA (08/19/2019 6:24 AM PDT) + +---------+ + + + | Component | Value | Ref Range | Performed | Pathologist | | | | | At | Signature | + +---------+ + + + | MAGNESIUM,P | 2.7 (H) | 1.6 - 2.6 mg/dL | [facility] [...] | + + + + + | [facility] | [address] | [place] [address] | | | SERVICES, CORE | [address] | | | + + + + + COMPLETE METABOLIC SET (NA,K,CL,CO2,BUN,CREAT,GLUC,CA,AST,ALT,BILI TOTAL,ALK PHOS,ALB,PROT TOTAL) (08/19/2019 6:24 AM PDT) + + + + + + | Component | Value | Ref Range | Performed | Pathologist | | | | | At | Signature | + + + + + + | GLUCOSE, | 140 (H) | 70 - 99 mg/dL | [facility] | | | PLASMA | | | LABORATORY | | | (LAB) | | | SERVICES, | | | | | | CORE | | + + + + + + | BUN, PLASMA | 97 (H) | 6 - 20 mg/dL | [facility] | | | (LAB) | | | LABORATORY | | | | | | SERVICES, | | | | | | CORE | | + + + + + + | CREATININE | 2.17 (H) | 0.70 - 1.30 | [facility] | | | PLASMA | | mg/dL | LABORATORY | | | (LAB) | | | SERVICES, | | | | | | CORE | | + + + + + + | EGFR | 39 (L) | >60 mL/min | [facility] | | | - | | | LABORATORY | | | TURKISH | | | SERVICES, | | | | | | CORE | | + + + + + + | EGFR NON | 32 (L) | >60 mL/min | [facility] | | | -JARRED | | | LABORATORY | | | RICAN | | | SERVICES, | | | | | | CORE | | + + + + + + | SODIUM, | 140 | 136 - 145 | [facility] | | | PLASMA | | mmol/L | LABORATORY | | | (LAB) | | | SERVICES, | | | | | | CORE | | + + + + + + | POTASSIUM, | 4.8 | 3.4 - 5.0 | [facility] | | | PLASMA | | mmol/L | LABORATORY | | | (LAB) | | | SERVICES, | | | | | | CORE | | + + + + + + | CHLORIDE, | 108 | 97 - 108 mmol/L | [facility] | | | PLASMA | | | LABORATORY | | | (LAB) | | | SERVICES, | | | | | | CORE | | + + + + + + | TOTAL CO2, | 22 | 21 - 32 mmol/L | [facility] | | | PLASMA | | | LABORATORY | | | (LAB) | | | SERVICES, | | | | | | CORE | | + + + + + + | CALCIUM, | 8.2 (L) | 8.6 - 10.2 | [facility] | | | PLASMA | | mg/dL | LABORATORY | | | (LAB) | | | SERVICES, | | | | | | CORE | | + + + + + + | CALCIUM(ALB | 8.6 | 8.6 - 10.2 | [facility] | | | CORRECTED) | | mg/dL | LABORATORY | | | | | | SERVICES, | | | | | | CORE | | + + + + + + | BILIRUBIN | 1.5 (H) | 0.3 - 1.2 mg/dL | [facility] | | | TOTAL | | | LABORATORY | | | | | | SERVICES, | | | | | | CORE | | + + + + + + | TOTAL | 5.4 (L) | 6.4 - 8.2 g/dL | [facility] | | | PROTEIN, | | | LABORATORY | | | PLASMA | | | SERVICES, | | | (LAB) | | | CORE | | + + + + + + | ALBUMIN, | 3.5 | 3.5 - 4.7 g/dL | [facility] | | | PLASMA | | | LABORATORY | | | (LAB) | | | SERVICES, | | | | | | CORE | | + + + + + + | ALK PHOS | 33 (L) | 53 - 128 U/L | [facility] | | | | | | LABORATORY | | | | | | SERVICES, | | | | | | CORE | | + + + + + + | AST(SGOT) | 23 | <=41 U/L | [facility] | | | | | | LABORATORY | | | | | | SERVICES, | | | | | | CORE | | + + + + + + | ALT (SGPT) | 122 (H) | <=60 U/L | [facility] | | | | | | LABORATORY | | | | | | SERVICES, | | | | | | CORE | | + + + + + + | ANION GAP | 10 | 4 - 11 mmol/L | [facility] | | | | | | LABORATORY | | | | | | SERVICES, | | | | | | CORE | | + + + + + + | ANION | 11 | 4 - 11 mmol/L | [facility] [...] MDRD equation recommended by the National | [facility] | | Kidney Disease Education Program. Estimated [...] | + + + + + | [facility] | [address] | [place] [address] | | | CLAUDIA, ARTIS | [address] | | | + + + + + CAPILLARY BLOOD GLUCOSE (NO CHG), POC (08/19/2019 6:16 AM PDT) + +---------+ + + + | Component | Value | Ref Range | Performed | Pathologist | | | | | At | Signature | + +---------+ + + + | BLOOD | 138 (H) | 70 - 99 mg/dL | [facility] | | | GLUCOSE, | | | [facility] | | | POC | | | [facility] | | | | | | OF CARE | | | | | | TESTS | | + +---------+ + + + + + | Specimen | + + | Blood | + + + + + + + | Performing | Address | City/State/Zipcode | Phone Number | | Organization | | | | + + + + + | [facility] | [address] | [place], [place] | | | [facility] | [address] | [address] | | | TESTS | | | | + + + + + CAPILLARY BLOOD GLUCOSE (NO CHG), POC (08/19/2019 5:26 AM PDT) + +---------+ + + + | Component | Value | Ref Range | Performed | Pathologist | | | | | At | Signature | + +---------+ + + + | BLOOD | 141 (H) | 70 - 99 mg/dL | [facility] | | | GLUCOSE, | | | [facility] | | | POC | | | [facility] | | | | | | OF CARE | | | | | | TESTS | | + +---------+ + + + + + | Specimen | + + | Blood | + + + + + + + | Performing | Address | City/State/Zipcode | Phone Number | | Organization | | | | + + + + + | [facility] | [address] | [place], [place] | | | [facility] | [address] | [address] | | | TESTS | | | | + + + + + CAPILLARY BLOOD GLUCOSE (NO CHG), POC (08/19/2019 4:17 AM PDT) + +---------+ + + + | Component | Value | Ref Range | Performed | Pathologist | | | | | At | Signature | + +---------+ + + + | BLOOD | 149 (H) | 70 - 99 mg/dL | [facility] | | | GLUCOSE, | | | [facility] | | | POC | | | [facility] | | | | | | OF CARE | | | | | | TESTS | | + +---------+ + + + + + | Specimen | + + | Blood | + + + + + + + | Performing | Address | City/State/Zipcode | Phone Number | | Organization | | | | + + + + + | [facility] | [address] | [place], [place] | | | [facility] | [address] | [address] | | | TESTS | | | | + + + + + CAPILLARY BLOOD GLUCOSE (NO CHG), POC (08/19/2019 3:19 AM PDT) + +---------+ + + + | Component | Value | Ref Range | Performed | Pathologist | | | | | At | Signature | + +---------+ + + + | BLOOD | 137 (H) | 70 - 99 mg/dL | [facility] | | | GLUCOSE, | | | [facility] | | | POC | | | [facility] | | | | | | OF CARE | | | | | | TESTS | | + +---------+ + + + + + | Specimen | + + | Blood | + + + + + + + | Performing | Address | City/State/Zipcode | Phone Number | | Organization | | | | + + + + + | [facility] | [address] | [place], [place] | | | [facility] | [address] | [address] | | | TESTS | | | | + + + + + CAPILLARY BLOOD GLUCOSE (NO CHG), POC (08/19/2019 2:23 AM PDT) + +---------+ + + + | Component | Value | Ref Range | Performed | Pathologist | | | | | At | Signature | + +---------+ + + + | BLOOD | 146 (H) | 70 - 99 mg/dL | [facility] | | | GLUCOSE, | | | [facility] | | | POC | | | [facility] | | | | | | OF CARE | | | | | | TESTS | | + +---------+ + + + + + | Specimen | + + | Blood | + + + + + + + | Performing | Address | City/State/Zipcode | Phone Number | | Organization | | | | + + + + + | [facility] | [address] | [place], [place] | | | [facility] | [address] | [address] | | | TESTS | | | | + + + + + CAPILLARY BLOOD GLUCOSE (NO CHG), POC (08/19/2019 1:29 AM PDT) + +---------+ + + + | Component | Value | Ref Range | Performed | Pathologist | | | | | At | Signature | + +---------+ + + + | BLOOD | 128 (H) | 70 - 99 mg/dL | [facility] - | | | GLUCOSE, | | | [facility] | | | POC | | | [facility] | | | | | | OF CARE | | | | | | TESTS | | + +---------+ + + + + + | Specimen | + + | Blood | + + + + + + + | Performing | Address | City/State/Zipcode | Phone Number | | Organization | | | | + + + + + | [facility] | [address] | [place], [place] | | | [facility] | [address] | [address] | | | TESTS | | | | + + + + + CAPILLARY BLOOD GLUCOSE (NO CHG), POC (08/19/2019 12:22 AM PDT) + +---------+ + + + | Component | Value | Ref Range | Performed | Pathologist | | | | | At | Signature | + +---------+ + + + | BLOOD | 142 (H) | 70 - 99 mg/dL | [facility] - | | | GLUCOSE, | | | [facility] | | | POC | | | [facility] | | | | | | OF CARE | | | | | | TESTS | | + +---------+ + + + + + | Specimen | + + | Blood | + + + + + + + | Performing | Address | City/State/Zipcode | Phone Number | | Organization | | | | + + + + + | [facility] | [address] | [place], [place] | | | [facility] | [address] | [address] | | | TESTS | | | | + + + + + CARDIOLOGY (08/19/2019 12:00 AM PDT) + + + | Narrative | Performed At | + + + | | | + + + CARDIOLOGY (08/19/2019 12:00 AM PDT) + + + | Narrative | Performed At | + + + | | | + + + CAPILLARY BLOOD GLUCOSE (NO CHG), POC (08/18/2019 11:23 PM PDT) + +---------+ + + + | Component | Value | Ref Range | Performed | Pathologist | | | | | At | Signature | + +---------+ + + + | BLOOD | 157 (H) | 70 - 99 mg/dL | [facility] - | | | GLUCOSE, | | | [facility] | | | POC | | | [facility] | | | | | | OF CARE | | | | | | TESTS | | + +---------+ + + + + + | Specimen | + + | Blood | + + + + + + + | Performing | Address | City/State/Zipcode | Phone Number | | Organization | | | | + + + + + | [facility] | [address] | [place], [place] | | | [facility] | [address] | [address] | | | TESTS | | | | + + + + + CAPILLARY BLOOD GLUCOSE (NO CHG), POC (08/18/2019 10:25 PM PDT) + +---------+ + + + | Component | Value | Ref Range | Performed | Pathologist | | | | | At | Signature | + +---------+ + + + | BLOOD | 138 (H) | 70 - 99 mg/dL | [facility] - | | | GLUCOSE, | | | [facility] | | | POC | | | [facility] | | | | | | OF CARE | | | | | | TESTS | | + +---------+ + + + + + | Specimen | + + | Blood | + + + + + + + | Performing | Address | City/State/Zipcode | Phone Number | | Organization | | | | + + + + + | [facility] | [address] | [place], [place] | | | [facility] | [address] | [address] | | | TESTS | | | | + + + + + CAPILLARY BLOOD GLUCOSE (NO CHG), POC (08/18/2019 9:21 PM PDT) + +---------+ + + + | Component | Value | Ref Range | Performed | Pathologist | | | | | At | Signature | + +---------+ + + + | BLOOD | 136 (H) | 70 - 99 mg/dL | [facility] - | | | GLUCOSE, | | | [facility] | | | POC | | | [facility] | | | | | | OF CARE | | | | | | TESTS | | + +---------+ + + + + + | Specimen | + + | Blood | + + + + + + + | Performing | Address | City/State/Zipcode | Phone Number | | Organization | | | | + + + + + | [facility] | [address] | [place], [place] | | | [facility] [place] | [address] | [address] | | | TESTS | | | | + + + + + CAPILLARY BLOOD GLUCOSE (NO CHG), POC (08/18/2019 8:11 PM PDT) + +---------+ + + + | Component | Value | Ref Range | Performed | Pathologist | | | | | At | Signature | + +---------+ + + + | BLOOD | 152 (H) | 70 - 99 mg/dL | [facility] - | | | GLUCOSE, | | | [facility] | | | POC | | | [facility] | | | | | | OF CARE | | | | | | TESTS | | + +---------+ + + + + + | Specimen | + + | Blood | + + + + + + + | Performing | Address | City/State/Zipcode | Phone Number | | Organization | | | | + + + + + | [facility] | [address] | [place], [place] | | | [facility] | [address] | [address] | | | TESTS | | | | + + + + + CAPILLARY BLOOD GLUCOSE (NO CHG), POC (08/18/2019 6:37 PM PDT) + +---------+ + + + | Component | Value | Ref Range | Performed | Pathologist | | | | | At | Signature | + +---------+ + + + | BLOOD | 154 (H) | 70 - 99 mg/dL | [facility] | | | GLUCOSE, | | | [facility] | | | POC | | | [facility] | | | | | | OF CARE | | | | | | TESTS | | + +---------+ + + + + + | Specimen | + + | Blood | + + + + + + + | Performing | Address | City/State/Zipcode | Phone Number | | Organization | | | | + + + + + | [facility] | [address] | [place], [place] | | | [facility] | [address] | [address] | | | TESTS | | | | + + + + + CAPILLARY BLOOD GLUCOSE (NO CHG), POC (08/18/2019 5:28 PM PDT) + +---------+ + + + | Component | Value | Ref Range | Performed | Pathologist | | | | | At | Signature | + +---------+ + + + | BLOOD | 148 (H) | 70 - 99 mg/dL | [facility] - | | | GLUCOSE, | | | [facility] | | | POC | | | [facility] | | | | | | OF CARE | | | | | | TESTS | | + +---------+ + + + + + | Specimen | + + | Blood | + + + + + + + | Performing | Address | City/State/Zipcode | Phone Number | | Organization | | | | + + + + + | [facility] | [address] | [place], [place] | | | [facility] [place] | [facility] | [address] | | | TESTS | | | | + + + + + CAPILLARY BLOOD GLUCOSE (NO CHG), POC (08/18/2019 4:17 PM PDT) + +---------+ + + + | Component | Value | Ref Range | Performed | Pathologist | | | | | At | Signature | + +---------+ + + + | BLOOD | 157 (H) | 70 - 99 mg/dL | [facility] | | | GLUCOSE, | | | [facility] | | | POC | | | [facility] | | | | | | OF CARE | | | | | | TESTS | | + +---------+ + + + + + | Specimen | + + | Blood | + + + + + + + | Performing | Address | City/State/Zipcode | Phone Number | | Organization | | | | + + + + + | [facility] | [address] | [place], [place] | | | [facility] | [address] | [address] | | | TESTS | | | | + + + + + CAPILLARY BLOOD GLUCOSE (NO CHG), POC (08/18/2019 3:12 PM PDT) + +---------+ + + + | Component | Value | Ref Range | Performed | Pathologist | | | | | At | Signature | + +---------+ + + + | BLOOD | 178 (H) | 70 - 99 mg/dL | [facility] | | | GLUCOSE, | | | [facility] | | | POC | | | [facility] | | | | | | OF CARE | | | | | | TESTS | | + +---------+ + + + + + | Specimen | + + | Blood | + + + + + + + | Performing | Address | City/State/Zipcode | Phone Number | | Organization | | | | + + + + + | [facility] | [address] | [place], [place] | | | [facility] | [facility] | [address] | | | TESTS | | | | + + + + + CAPILLARY BLOOD GLUCOSE (NO CHG), POC (08/18/2019 2:13 PM PDT) + +---------+ + + + | Component | Value | Ref Range | Performed | Pathologist | | | | | At | Signature | + +---------+ + + + | BLOOD | 155 (H) | 70 - 99 mg/dL | [facility] | | | GLUCOSE, | | | [facility] | | | POC | | | [facility] | | | | | | OF CARE | | | | | | TESTS | | + +---------+ + + + + + | Specimen | + + | Blood | + + + + + + + | Performing | Address | City/State/Zipcode | Phone Number | | Organization | | | | + + + + + | [facility] | [address] | [place], [place] | | | [facility] [place] | [facility] | [address] | | | TESTS | | | | + + + + + CAPILLARY BLOOD GLUCOSE (NO CHG), POC (08/18/2019 1:12 PM PDT) + +---------+ + + + | Component | Value | Ref Range | Performed | Pathologist | | | | | At | Signature | + +---------+ + + + | BLOOD | 149 (H) | 70 - 99 mg/dL | [facility] - | | | GLUCOSE, | | | [facility] | | | POC | | | [facility] | | | | | | OF CARE | | | | | | TESTS | | + +---------+ + + + + + | Specimen | + + | Blood | + + + + + + + | Performing | Address | City/State/Zipcode | Phone Number | | Organization | | | | + + + + + | [facility] | [address] | [place], [place] | | | [facility] | [address] | [address] | | | TESTS | | | | + + + + + CAPILLARY BLOOD GLUCOSE (NO CHG), POC (08/18/2019 11:27 AM PDT) + +---------+ + + + | Component | Value | Ref Range | Performed | Pathologist | | | | | At | Signature | + +---------+ + + + | BLOOD | 170 (H) | 70 - 99 mg/dL | [facility] | | | GLUCOSE, | | | [facility] | | | POC | | | [facility] | | | | | | OF CARE | | | | | | TESTS | | + +---------+ + + + + + | Specimen | + + | Blood | + + + + + + + | Performing | Address | City/State/Zipcode | Phone Number | | Organization | | | | + + + + + | [facility] | [address] | [place], [place] | | | [facility] | [address] | [address] | | | TESTS | | | | + + + + + CAPILLARY BLOOD GLUCOSE (NO CHG), POC (08/18/2019 9:58 AM PDT) + +---------+ + + + | Component | Value | Ref Range | Performed | Pathologist | | | | | At | Signature | + +---------+ + + + | BLOOD | 148 (H) | 70 - 99 mg/dL | [facility] - | | | GLUCOSE, | | | [facility] | | | POC | | | [facility] | | | | | | OF CARE | | | | | | TESTS | | + +---------+ + + + + + | Specimen | + + | Blood | + + + + + + + | Performing | Address | City/State/Zipcode | Phone Number | | Organization | | | | + + + + + | [facility] | [address] | [place], [place] | | | [facility] [place] | [facility] | [address] | | | TESTS | | | | + + + + + CAPILLARY BLOOD GLUCOSE (NO CHG), POC (08/18/2019 8:40 AM PDT) + +---------+ + + + | Component | Value | Ref Range | Performed | Pathologist | | | | | At | Signature | + +---------+ + + + | BLOOD | 126 (H) | 70 - 99 mg/dL | [facility] - | | | GLUCOSE, | | | [facility] | | | POC | | | [facility] | | | | | | OF CARE | | | | | | TESTS | | + +---------+ + + + + + | Specimen | + + | Blood | + + + + + + + | Performing | Address | City/State/Zipcode | Phone Number | | Organization | | | | + + + + + | [facility] | [address] | [place], [place] | | | [facility] | [facility] | [address] | | | TESTS | | | | + + + + + ANTIBODY SCREEN (08/18/2019 8:40 AM PDT) + + + + + + | Component | Value | Ref Range | Performed | Pathologist | | | | | At | Signature | + + + + + + | Antibody | Negative | | [facility] | | | Screen | | | LABORATORY | | | | | | SERVICES, | | | | | | TRANSFUSION | | | | | | MEDICINE | | + + + + + + + + | Specimen | + + | Blood - Blood | | (substance) | + + + + + + + | Performing | Address | City/State/Zipcode | Phone Number | | Organization | | | | + + + + + | [facility] | [address] | [place] [address] | | | SERVICES, | [address] | | | | TRANSFUSION MEDICINE | | | | + + + + + ABO & RH TYPE (08/18/2019 8:40 AM PDT) + + + + + + | Component | Value | Ref Range | Performed | Pathologist | | | | | At | Signature | + + + + + + | ABO Group | A | | [facility] | | | | | | LABORATORY | | | | | | SERVICES, | | | | | | TRANSFUSION | | | | | | MEDICINE | | + + + + + + | Rh Type | Positive | | [facility] | | | | | | LABORATORY | | | | | | SERVICES, | | | | | | TRANSFUSION | | | | | | MEDICINE | | + + + + + + + + | Specimen | + + | Blood - Blood | | (substance) | + + + + + + + | Performing | Address | City/State/Zipcode | Phone Number | | Organization | | | | + + + + + | [facility] | [address] | [place] [address] | | | SERVICES, | [address] | | | | TRANSFUSION MEDICINE | | | | + + + + + PRODUCT - RED CELLS LEUKOREDUCED (08/18/2019 8:26 AM PDT) + + + + + + | Component | Value | Ref Range | Performed | Pathologist | | | | | At | Signature | + + + + + + | PRODUCT | -1 RED BLOOD CELLS | | [facility] | | | DESCRIPTION | [facility] | | LABORATORY | | | | | | SERVICES, | | | | | | TRANSFUSION | | | | | | MEDICINE | | + + + + + + | PRODUCT | [id number] | | [facility] | | | UNIT # | | | LABORATORY | | | | | | SERVICES, | | | | | | TRANSFUSION | | | | | | MEDICINE | | + + + + + + | UNIT ABO | A | | [facility] | | | | | | LABORATORY | | | | | | SERVICES, | | | | | | TRANSFUSION | | | | | | MEDICINE | | + + + + + + | UNIT RH | NEG | | [facility] | | | | | | LABORATORY | | | | | | SERVICES, | | | | | | TRANSFUSION | | | | | | MEDICINE | | + + + + + + | STATUS OF | Presumed Transfused | | [facility] | | | UNIT | | | LABORATORY | | | | | | SERVICES, | | | | | | TRANSFUSION | | | | | | MEDICINE | | + + + + + + | EXPIRATION | [id number] | | [facility] | | | DATE | | | LABORATORY | | | | | | SERVICES, | | | | | | TRANSFUSION | | | | | | MEDICINE | | + + + + + + | BLOOD TYPE | 0600 | | [facility] | | | BARCODE | | | LABORATORY | | | | | | SERVICES, | | | | | | TRANSFUSION | | | | | | MEDICINE | | + + + + + + | BLOOD | [id number] | | [facility] | | | PRODUCT | | | LABORATORY | | | CODE | | | SERVICES, | | | | | | TRANSFUSION | | | | | | MEDICINE | | + + + + + + + + | Specimen | + + | | + + + + + + + | Performing | Address | City/State/Zipcode | Phone Number | | Organization | | | | + + + + + | [facility] | [address] | [place] [address] | | | SERVICES, | [address] | | | | TRANSFUSION MEDICINE | | | | + + + + + PRODUCT - RED CELLS LEUKOREDUCED (08/18/2019 8:26 AM PDT) + + + + + + | Component | Value | Ref Range | Performed | Pathologist | | | | | At | Signature | + + + + + + | PRODUCT | -1 RED BLOOD CELLS | | [facility] | | | DESCRIPTION | [facility] | | LABORATORY | | | | | | SERVICES, | | | | | | TRANSFUSION | | | | | | MEDICINE | | + + + + + + | PRODUCT | [id number] | | [facility] | | | UNIT # | | | LABORATORY | | | | | | SERVICES, | | | | | | TRANSFUSION | | | | | | MEDICINE | | + + + + + + | UNIT ABO | A | | [facility] | | | | | | LABORATORY | | | | | | SERVICES, | | | | | | TRANSFUSION | | | | | | MEDICINE | | + + + + + + | UNIT RH | POS | | [facility] | | | | | | LABORATORY | | | | | | SERVICES, | | | | | | TRANSFUSION | | | | | | MEDICINE | | + + + + + + | STATUS OF | Presumed Transfused | | [facility] | | | UNIT | | | LABORATORY | | | | | | SERVICES, | | | | | | TRANSFUSION | | | | | | MEDICINE | | + + + + + + | EXPIRATION | [id number] | | [facility] | | | DATE | | | LABORATORY | | | | | | SERVICES, | | | | | | TRANSFUSION | | | | | | MEDICINE | | + + + + + + | BLOOD TYPE | 6200 | | [facility] | | | BARCODE | | | LABORATORY | | | | | | SERVICES, | | | | | | TRANSFUSION | | | | | | MEDICINE | | + + + + + + | BLOOD | [id number] | | [facility] | | | PRODUCT | | | LABORATORY | | | CODE | | | SERVICES, | | | | | | TRANSFUSION | | | | | | MEDICINE | | + + + + + + + + | Specimen | + + | | + + + + + + + | Performing | Address | City/State/Zipcode | Phone Number | | Organization | | | | + + + + + | [facility] | [address] | [place] [address] | | | SERVICES, | [address] | | | | TRANSFUSION MEDICINE | | | | + + + + + CAPILLARY BLOOD GLUCOSE (NO CHG), POC (08/18/2019 7:10 AM PDT) + +---------+ + + + | Component | Value | Ref Range | Performed | Pathologist | | | | | At | Signature | + +---------+ + + + | BLOOD | 126 (H) | 70 - 99 mg/dL | [facility] | | | GLUCOSE, | | | [facility] | | | POC | | | [place]INT | | | | | | OF CARE | | | | | | TESTS | | + +---------+ + + + + + | Specimen | + + | Blood | + + + + + + + | Performing | Address | City/State/Zipcode | Phone Number | | Organization | | | | + + + + + | [facility] | [address] | [place], [place] | | | [facility] | [facility] | [address] | | | TESTS | | | | + + + + + CBC AND AUTO DIFF (08/18/2019 6:15 AM PDT) + + + + + + | Component | Value | Ref Range | Performed | Pathologist | | | | | At | Signature | + + + + + + | WHITE CELL | 3.39 (L) | 3.50 - 10.80 | [facility] | | | COUNT | | K/cu mm | LABORATORY | | | | | | SERVICES, | | | | | | CORE | | + + + + + + | RED CELL | 2.14 (L) | 4.50 - 6.00 | [facility] | | | COUNT | | M/cu mm | LABORATORY | | | | | | SERVICES, | | | | | | CORE | | + + + + + + | HEMOGLOBIN | 6.9 (L) | 13.5 - 17.5 | [facility] | | | | | g/dL | LABORATORY | | | | | | SERVICES, | | | | | | CORE | | + + + + + + | HEMATOCRIT | 20.6 (L) | 41.0 - 53.0 % | [facility] | | | | | | LABORATORY | | | | | | SERVICES, | | | | | | CORE | | + + + + + + | MCV | 96.3 | 80.0 - 100.0 fL | [facility] | | | | | | LABORATORY | | | | | | SERVICES, | | | | | | CORE | | + + + + + + | MCHC | 33.5 | 32.0 - 36.0 | [facility] | | | | | g/dL | LABORATORY | | | | | | SERVICES, | | | | | | CORE | | + + + + + + | RDW SD | 61.2 (H) | 35.1 - 46.3 fL | [facility] | | | | | | LABORATORY | | | | | | SERVICES, | | | | | | CORE | | + + + + + + | PLATELET | 25 (L) | 150 - 400 K/cu | [facility] | | | COUNT | | mm | LABORATORY | | | | | | SERVICES, | | | | | | CORE | | + + + + + + | MPV | 11.5 | 9.7 - 12.3 fL | [facility] [...] + + + + | NEUTROPHIL | 82.3 (H) | 50.0 - 70.0 % | [facility] | | | % | | | LABORATORY | | | | | | SERVICES, | | | | | | CORE | | + + + + + + | LYMPHOCYTE | 10.0 (L) | 18.0 - 42.0 % | [facility] | | | % | | | LABORATORY | | | | | | SERVICES, | | | | | | CORE | | + + + + + + | MONOCYTE % | 6.2 | 3.5 - 9.0 % | [facility] | | | | | | LABORATORY | | | | | | SERVICES, | | | | | | CORE | | + + + + + + | EOS % | 0.0 (L) | 1.0 - 3.0 % | [facility] | | | | | | LABORATORY | | | | | | SERVICES, | | | | | | CORE | | + + + + + + | BASO % | 0.0 | 0.0 - 2.0 % | [facility] | | | | | | LABORATORY | | | | | | SERVICES, | | | | | | CORE | | + + + + + + | IG% | 1.5 (H) | 0.0 - 1.0 % | [facility] | | | | | | LABORATORY | | | | | | SERVICES, | | | | | | CORE | | + + + + + + | NEUTROPHIL | 2.79 | 1.80 - 7.70 | [facility] | | | # | | K/cu mm | LABORATORY | | | | | | SERVICES, | | | | | | CORE | | + + + + + + | LYMPHOCYTE | 0.34 (L) | 1.00 - 4.80 | [facility] | | | # | | K/cu mm | LABORATORY | | | | | | SERVICES, | | | | | | CORE | | + + + + + + | MONOCYTE # | 0.21 | 0.10 - 0.90 | [facility] | | | | | K/cu mm | LABORATORY | | | | | | SERVICES, | | | | | | CORE | | + + + + + + | EOS # | 0.00 | 0.00 - 0.50 | [facility] | | | | | K/cu mm | LABORATORY | | | | | | SERVICES, | | | | | | CORE | | + + + + + + | BASO # | 0.00 | 0.00 - 0.10 | [facility] | | | | | K/cu mm | LABORATORY | | | | | | SERVICES, | | | | | | CORE | | + + + + + + | IG# | 0.05 | 0.00 - 0.10 | [facility] | [...] | + + + + + | [facility] | [address] | [place] [address] | | | SERVICES, CORE | [address] | | | + + + + + CAPILLARY BLOOD GLUCOSE (NO CHG), POC (08/18/2019 6:14 AM PDT) + +---------+ + + + | Component | Value | Ref Range | Performed | Pathologist | | | | | At | Signature | + +---------+ + + + | BLOOD | 147 (H) | 70 - 99 mg/dL | [facility] | | | GLUCOSE, | | | [facility] | | | POC | | | [facility] | | | | | | OF CARE | | | | | | TESTS | | + +---------+ + + + + + | Specimen | + + | Blood | + + + + + + + | Performing | Address | City/State/Zipcode | Phone Number | | Organization | | | | + + + + + | [facility] | [address] | [place], [place] | | | [facility] CARE | [address] | [address] | | | TESTS | | | | + + + + + INR (08/18/2019 6:14 AM PDT) + + + + + + | Component | Value | Ref Range | Performed | Pathologist | | | | | At | Signature | + + + + + + | INR | 1.43 (H) | 0.90 - 1.20 INR | [...] mech. valves (2.5 - 3.5) INR | CLAUDIA, CORE | + + + + + + + + | Performing | Address | City/State/Zipcode | Phone Number | | Organization | | | | + + + + + | [facility] | [address] | [place] [address] | | | SERVICES, ARTIS | [address] | | | + + + + + TACROLIMUS, WHOLE BLOOD (08/18/2019 6:14 AM PDT) + + + + + + | Component | Value | Ref Range | Performed | Pathologist | | | | | At | Signature | + + + + + + | TACROLIMUS | <2.0 (L)Comment: Begin | 5.0 - 15.0 | [facility] | | | ([address]) | POD #1 | ng/mL | LABORATORY | | | | | | SERVICES, | | | | | | SPECIAL IMM | | | | | | + COAG | | + + + + + + + + | Specimen | + + | Blood - Blood | | (substance) | + + + + + | Narrative | Performed At | + + + | Test performed by immunoassay using [employer] Child And Adolescent Psychologist i2000. . | [facility] | | Samples [...] | + + + + + | [facility] | [address] | [place] [address] | | | CLAUDIA SPECIAL | [address] | | | | IMM + COAG | | | | + + + + + AMYLASE, PLASMA (08/18/2019 6:14 AM PDT) + +--------+ + + + | Component | Value | Ref Range | Performed | Pathologist | | | | | At | Signature | + +--------+ + + + | AMYLASE,EZEQUIEL | 16 (L) | 25 - 115 U/L | [facility] | | | SMA | | | LABORATORY | | | | | | SERVICES, | | | | | | CORE | | + +--------+ + + + + + | Specimen | + + | Blood - Blood | | (substance) | + + + + + + + | Performing | Address | City/State/Zipcode | Phone Number | | Organization | | | | + + + + + | [facility] | [address] | [place] [address] | | | SERVICES, CORE | [address] | | | + + + + + LDH TOTAL, PLASMA (08/18/2019 6:14 AM PDT) + +---------+ + + + | Component | Value | Ref Range | Performed | Pathologist | | | | | At | Signature | + +---------+ + + + | LD TOTAL, | 165 | <=250 U/L | [facility] | | | PLASMA | | | LABORATORY | | | | | | SERVICES, | | | | | | CORE | | + +---------+ + + + | LD CMNT | No Hemo | | [facility] [...] + + + + + | [facility] | [address] | [place] [address] | | | CLAUDIA, ARTIS | [address] | | | + + + + + PHOSPHORUS, PLASMA (08/18/2019 6:14 AM PDT) + +---------+ + + + | Component | Value | Ref Range | Performed | Pathologist | | | | | At | Signature | + +---------+ + + + | PHOSPHORUS, | 6.2 (H) | 2.4 - 4.7 mg/dL | [facility] [...] | + + + + + | [facility] | [address] | [place] [address] | | | SERVICES, CORE | [address] | | | + + + + + MAGNESIUM, PLASMA (08/18/2019 6:14 AM PDT) + +---------+ + + + | Component | Value | Ref Range | Performed | Pathologist | | | | | At | Signature | + +---------+ + + + | MAGNESIUM,P | 2.8 (H) | 1.6 - 2.6 mg/dL | [facility] | | | LASMA | | | [...] | + + + + + | [facility] | [address] | [place] [address] | | | SERVICES, CORE | [address] | | | + + + + + COMPLETE METABOLIC SET (NA,K,CL,CO2,BUN,CREAT,GLUC,CA,AST,ALT,BILI TOTAL,ALK PHOS,ALB,PROT TOTAL) (08/18/2019 6:14 AM PDT) + + + + + + | Component | Value | Ref Range | Performed | Pathologist | | | | | At | Signature | + + + + + + | GLUCOSE, | 154 (H) | 70 - 99 mg/dL | [facility] | | | PLASMA | | | LABORATORY | | | (LAB) | | | SERVICES, | | | | | | CORE | | + + + + + + | BUN, PLASMA | 77 (H) | 6 - 20 mg/dL | [facility] | | | (LAB) | | | LABORATORY | | | | | | SERVICES, | | | | | | CORE | | + + + + + + | CREATININE | 1.83 (H) | 0.70 - 1.30 | [facility] | | | PLASMA | | mg/dL | LABORATORY | | | (LAB) | | | SERVICES, | | | | | | CORE | | + + + + + + | EGFR | 47 (L) | >60 mL/min | [facility] | | | - | | | LABORATORY | | | TURKISH | | | SERVICES, | | | | | | CORE | | + + + + + + | EGFR NON | 39 (L) | >60 mL/min | [facility] | | | -JARRED | | | LABORATORY | | | [...] + + + + | CHLORIDE, | 108 | 97 - 108 mmol/L | [facility] | | | PLASMA | | | LABORATORY | | | (LAB) | | | SERVICES, | | | | | | CORE | | + + + + + + | TOTAL CO2, | 21 | 21 - 32 mmol/L | [facility] | | | PLASMA | | | LABORATORY | | | (LAB) | | | SERVICES, | | | | | | CORE | | + + + + + + | CALCIUM, | 8.5 (L) | 8.6 - 10.2 | [facility] | | | PLASMA | | mg/dL | LABORATORY | | | (LAB) | | | SERVICES, | | | | | | CORE | | + + + + + + | CALCIUM(ALB | 9.1 | 8.6 - 10.2 | [facility] | | | CORRECTED) | | mg/dL | LABORATORY | | | | | | SERVICES, | | | | | | CORE | | + + + + + + | BILIRUBIN | 1.7 (H) | 0.3 - 1.2 mg/dL | [facility] | | | TOTAL | | | LABORATORY | | | | | | SERVICES, | | | | | | CORE | | + + + + + + | TOTAL | 5.5 (L) | 6.4 - 8.2 g/dL | [...] + + + | ALK PHOS | 34 (L) | 53 - 128 U/L | [facility] | | | | | | LABORATORY | | | | | | SERVICES, | | | | | | CORE | | + + + + + + | AST(SGOT) | 40 | <=41 U/L | [facility] | | | | | | LABORATORY | | | | | | SERVICES, | | | | | | CORE | | + + + + + + | ALT (SGPT) | 164 (H) | <=60 U/L | [facility] | | | | | | LABORATORY | | | | | | SERVICES, | | | | | | CORE | | + + + + + + | ANION GAP | 9 | 4 - 11 mmol/L | [facility] | | | | | | LABORATORY | | | | | | SERVICES, | | | | | | CORE | | + + + + + + | ANION | 10 | 4 - 11 mmol/L | [facility] [...] | + + + + + | [facility] [employer] | [address] | [place] [address] | | | SERVICES, CORE | [address] | | | + + + + + CAPILLARY BLOOD GLUCOSE (NO CHG), POC (08/18/2019 5:16 AM PDT) + +---------+ + + + | Component | Value | Ref Range | Performed | Pathologist | | | | | At | Signature | + +---------+ + + + | BLOOD | 146 (H) | 70 - 99 mg/dL | [facility] | | | GLUCOSE, | | | [facility] | | | POC | | | [facility] | | | | | | OF CARE | | | | | | TESTS | | + +---------+ + + + + + | Specimen | + + | Blood | + + + + + + + | Performing | Address | City/State/Zipcode | Phone Number | | Organization | | | | + + + + + | [facility] | [address] | [place], [place] | | | [facility] | [facility] | [address] | | | TESTS | | | | + + + + + CAPILLARY BLOOD GLUCOSE (NO CHG), POC (08/18/2019 4:14 AM PDT) + +---------+ + + + | Component | Value | Ref Range | Performed | Pathologist | | | | | At | Signature | + +---------+ + + + | BLOOD | 141 (H) | 70 - 99 mg/dL | [facility] - | | | GLUCOSE, | | | [facility] | | | POC | | | [facility] | | | | | | OF CARE | | | | | | TESTS | | + +---------+ + + + + + | Specimen | + + | Blood | + + + + + + + | Performing | Address | City/State/Zipcode | Phone Number | | Organization | | | | + + + + + | [facility] | [address] | [place], [place] | | | [facility] OF CARE | [address] | [address] | | | TESTS | | | | + + + + + CAPILLARY BLOOD GLUCOSE (NO CHG), POC (08/18/2019 3:05 AM PDT) + +---------+ + + + | Component | Value | Ref Range | Performed | Pathologist | | | | | At | Signature | + +---------+ + + + | BLOOD | 133 (H) | 70 - 99 mg/dL | [facility] | | | GLUCOSE, | | | [facility] | | | POC | | | [facility] | | | | | | OF CARE | | | | | | TESTS | | + +---------+ + + + + + | Specimen | + + | Blood | + + + + + + + | Performing | Address | City/State/Zipcode | Phone Number | | Organization | | | | + + + + + | [facility] | [address] | [place], [place] | | | [facility] [facility]ARE | [address] | [address] | | | TESTS | | | | + + + + + CAPILLARY BLOOD GLUCOSE (NO CHG), POC (08/18/2019 1:51 AM PDT) + +---------+ + + + | Component | Value | Ref Range | Performed | Pathologist | | | | | At | Signature | + +---------+ + + + | BLOOD | 149 (H) | 70 - 99 mg/dL | [facility] | | | GLUCOSE, | | | [facility] | | | POC | | | [facility] | | | | | | OF CARE | | | | | | TESTS | | + +---------+ + + + + + | Specimen | + + | Blood | + + + + + + + | Performing | Address | City/State/Zipcode | Phone Number | | Organization | | | | + + + + + | [facility] | [address] | [place], [place] | | | [facility]ARE | [address] | [address] | | | TESTS | | | | + + + + + CAPILLARY BLOOD GLUCOSE (NO CHG), POC (08/18/2019 12:32 AM PDT) + +---------+ + + + | Component | Value | Ref Range | Performed | Pathologist | | | | | At | Signature | + +---------+ + + + | BLOOD | 151 (H) | 70 - 99 mg/dL | [facility] - | | | GLUCOSE, | | | [facility] | | | POC | | | [facility] | | | | | | OF CARE | | | | | | TESTS | | + +---------+ + + + + + | Specimen | + + | Blood | + + + + + + + | Performing | Address | City/State/Zipcode | Phone Number | | Organization | | | | + + + + + | [facility] | [address] | [place], [place] | | | [facility] [place] | [facility] | [address] | | | TESTS | | | | + + + + + CAPILLARY BLOOD GLUCOSE (NO CHG), POC (08/17/2019 11:34 PM PDT) + +---------+ + + + | Component | Value | Ref Range | Performed | Pathologist | | | | | At | Signature | + +---------+ + + + | BLOOD | 161 (H) | 70 - 99 mg/dL | [facility] - | | | GLUCOSE, | | | [facility] | | | POC | | | [facility] | | | | | | OF CARE | | | | | | TESTS | | + +---------+ + + + + + | Specimen | + + | Blood | + + + + + + + | Performing | Address | City/State/Zipcode | Phone Number | | Organization | | | | + + + + + | [facility] | [address] | [place], [place] | | | [facility]ARE | [address] | [address] | | | TESTS | | | | + + + + + CAPILLARY BLOOD GLUCOSE (NO CHG), POC (08/17/2019 10:35 PM PDT) + +---------+ + + + | Component | Value | Ref Range | Performed | Pathologist | | | | | At | Signature | + +---------+ + + + | BLOOD | 177 (H) | 70 - 99 mg/dL | [facility] - | | | GLUCOSE, | | | [facility] | | | POC | | | [facility] | | | | | | OF CARE | | | | | | TESTS | | + +---------+ + + + + + | Specimen | + + | Blood | + + + + + + + | Performing | Address | City/State/Zipcode | Phone Number | | Organization | | | | + + + + + | [facility] | [address] | [place], [place] | | | [place] CARE | [address] | [address] | | | TESTS | | | | + + + + + CAPILLARY BLOOD GLUCOSE (NO CHG), POC (08/17/2019 9:47 PM PDT) + +---------+ + + + | Component | Value | Ref Range | Performed | Pathologist | | | | | At | Signature | + +---------+ + + + | BLOOD | 166 (H) | 70 - 99 mg/dL | [facility] - | | | GLUCOSE, | | | [facility] | | | POC | | | [place] | | | | | | OF CARE | | | | | | TESTS | | + +---------+ + + + + + | Specimen | + + | Blood | + + + + + + + | Performing | Address | City/State/Zipcode | Phone Number | | Organization | | | | + + + + + | [facility] | [address] | [place], [place] | | | [facility] [place] | [address] | [address] | | | TESTS | | | | + + + + + CAPILLARY BLOOD GLUCOSE (NO CHG), POC (08/17/2019 8:42 PM PDT) + +---------+ + + + | Component | Value | Ref Range | Performed | Pathologist | | | | | At | Signature | + +---------+ + + + | BLOOD | 166 (H) | 70 - 99 mg/dL | [facility] - | | | GLUCOSE, | | | [facility] | | | POC | | | [facility] | | | | | | OF CARE | | | | | | TESTS | | + +---------+ + + + + + | Specimen | + + | Blood | + + + + + + + | Performing | Address | City/State/Zipcode | Phone Number | | Organization | | | | + + + + + | [facility] | [address] | [place], [place] | | | [facility] | [address] | [address] | | | TESTS | | | | + + + + + CAPILLARY BLOOD GLUCOSE (NO CHG), POC (08/17/2019 7:40 PM PDT) + +---------+ + + + | Component | Value | Ref Range | Performed | Pathologist | | | | | At | Signature | + +---------+ + + + | BLOOD | 153 (H) | 70 - 99 mg/dL | [facility] - | | | GLUCOSE, | | | [facility] | | | POC | | | [facility] | | | | | | OF CARE | | | | | | TESTS | | + +---------+ + + + + + | Specimen | + + | Blood | + + + + + + + | Performing | Address | City/State/Zipcode | Phone Number | | Organization | | | | + + + + + | [facility] | [address] | [place], [place] | | | [place]INT [facility] CARE | [address] | [address] | | | TESTS | | | | + + + + + CAPILLARY BLOOD GLUCOSE (NO CHG), POC (08/17/2019 6:35 PM PDT) + +---------+ + + + | Component | Value | Ref Range | Performed | Pathologist | | | | | At | Signature | + +---------+ + + + | BLOOD | 143 (H) | 70 - 99 mg/dL | [facility] - | | | GLUCOSE, | | | [facility] | | | POC | | | [facility] | | | | | | OF CARE | | | | | | TESTS | | + +---------+ + + + + + | Specimen | + + | Blood | + + + + + + + | Performing | Address | City/State/Zipcode | Phone Number | | Organization | | | | + + + + + | [facility] | [address] | [place], [place] | | | [place] [facility] [place] | [facility] | [address] | | | TESTS | | | | + + + + + CAPILLARY BLOOD GLUCOSE (NO CHG), POC (08/17/2019 5:59 PM PDT) + +---------+ + + + | Component | Value | Ref Range | Performed | Pathologist | | | | | At | Signature | + +---------+ + + + | BLOOD | 148 (H) | 70 - 99 mg/dL | [facility] - | | | GLUCOSE, | | | [facility] | | | POC | | | [facility] | | | | | | OF CARE | | | | | | TESTS | | + +---------+ + + + + + | Specimen | + + | Blood | + + + + + + + | Performing | Address | City/State/Zipcode | Phone Number | | Organization | | | | + + + + + | [facility] | [address] | [place], [place] | | | [facility] | [address] | [address] | | | TESTS | | | | + + + + + CAPILLARY BLOOD GLUCOSE (NO CHG), POC (08/17/2019 4:54 PM PDT) + +---------+ + + + | Component | Value | Ref Range | Performed | Pathologist | | | | | At | Signature | + +---------+ + + + | BLOOD | 158 (H) | 70 - 99 mg/dL | [facility] - | | | GLUCOSE, | | | [facility] | | | POC | | | [facility] | | | | | | OF CARE | | | | | | TESTS | | + +---------+ + + + + + | Specimen | + + | Blood | + + + + + + + | Performing | Address | City/State/Zipcode | Phone Number | | Organization | | | | + + + + + | [facility] | [address] | [place], [place] | | | [facility] | [address] | [address] | | | TESTS | | | | + + + + + PROCEDURE NOTE (08/17/2019 4:36 PM PDT) + + + | Narrative | Performed At | + + + | Olena Rosen 09/02/2019 12:12 PM Cellular Therapy | | | Laboratory - [facility] Vessels Cell Processing Name: Doug Dominguez | | | Roger Allogeneic Donor Specimen Type: Vessel | | | Receipt, Storage and Monitoring: One cup of extra vessels with | | | UNOS [id number] for Doug Lawson is received by me in a bag | | | with a UNOS tag. The cup of extra vessels and the accompanying tag | | | are labeled with the [employer] (UN[employer]) Donor | | | Identifier. The extra vessels are placed by me into the secure | | | 2-8 C monitored refrigerator in the space designated for extra | | | vessel storage. Receipt of the extra vessels for Doug Dominguez | | | Roger into the Cellular Therapy Lab is recorded on the Extra Vessel | | | Storage Log following Standard Operating Procedure by me. The | | | extra vessels are logged by me into the Extra Vessel Receipt, | | | Release and Discard Database that contains the UNOS Donor ID, date | | | the vessel was recovered, the intended recipient name, the intended | | | recipient medical record number and the due date range for vessel | | | discard. The extra vessels designated for Doug Lawson | | | are stored in the secure 2-8 C refrigerator and the storage | | | temperature monitored. The secure 2-8 C refrigerator | | | designated for vessel storage is monitored by Cellular Therapy Lab | | | staff 24 hours per day, 7 days per week using the [facility] | | | [facility] [employer] Alarm Monitoring System and all | | | Cellular [facility] Lab staff will be paged in the event of an alarm. | | | Recipient Name and MRN Verified: Yes UNOS Donor ID | | | Verified:Yes Tissue Packaging Integrity Verified: Yes Tissue | | | characteristics: Date of recovery: 08/15/2019 Date of storage in | | | the secure 2-8 C refrigerator: 08/17/2019 Date range of discard: | | | 08/25/2019-08/29/2019 [facility] | | + + + CAPILLARY BLOOD GLUCOSE (NO CHG), POC (08/17/2019 3:50 PM PDT) + +---------+ + + + | Component | Value | Ref Range | Performed | Pathologist | | | | | At | Signature | + +---------+ + + + | BLOOD | 175 (H) | 70 - 99 mg/dL | [facility] - | | | GLUCOSE, | | | [facility] | | | POC | | | [facility] | | | | | | OF CARE | | | | | | TESTS | | + +---------+ + + + + + | Specimen | + + | Blood | + + + + + + + | Performing | Address | City/State/Zipcode | Phone Number | | Organization | | | | + + + + + | [facility] | [address] | [place], [place] | | | [facility] | [address] | [address] | | | TESTS | | | | + + + + + CAPILLARY BLOOD GLUCOSE (NO CHG), POC (08/17/2019 2:35 PM PDT) + +---------+ + + + | Component | Value | Ref Range | Performed | Pathologist | | | | | At | Signature | + +---------+ + + + | BLOOD | 146 (H) | 70 - 99 mg/dL | [facility] | | | [facility], | | | [facility] | | | POC | | | [facility] | | | | | | [facility] | | | | | | TESTS | | + +---------+ + + + + + | Specimen | + + | Blood | + + + + + + + | Performing | Address | City/State/Zipcode | Phone Number | | Organization | | | | + + + + + | [facility] | [address] | [place], [place] | | | [facility] | [address] | [address] | | | TESTS | | | | + + + + + CAPILLARY BLOOD GLUCOSE (NO CHG), POC (08/17/2019 1:31 PM PDT) + +---------+ + + + | Component | Value | Ref Range | Performed | Pathologist | | | | | At | Signature | + +---------+ + + + | BLOOD | 112 (H) | 70 - 99 mg/dL | [facility] | | | [facility], | | | [facility] | | | POC | | | [facility] | | | | | | [facility] | | | | | | TESTS | | + +---------+ + + + + + | Specimen | + + | Blood | + + + + + + + | Performing | Address | City/State/Zipcode | Phone Number | | Organization | | | | + + + + + | [facility] | [address] | [place], [place] | | | [facility] | [address] | [address] | | | TESTS | | | | + + + + + VESSEL STORAGE (08/17/2019 1:00 PM PDT) + +-------+ + + + | Component | Value | Ref Range | Performed | Pathologist | | | | | At | Signature | + +-------+ + + + | LABEL ONLY | | | [facility] | | | - CTL | | | CELL | | | | | | PROCESSING | | | | | | LAB | | + +-------+ + + + + + | Specimen | + + | Vessel - Liver | | structure (body | | structure) | + + + + + + + | Performing | Address | City/State/Zipcode | Phone Number | | Organization | | | | + + + + + | [facility] | [phone] | [place], [place] | | | THERAPY LAB | [address] | [address] | | + + + + + | [facility] | [phone] | [place], [place] | | | PROCESSING LAB | [address] | [address] | | + + + + + CAPILLARY BLOOD GLUCOSE (NO CHG), POC (08/17/2019 12:40 PM PDT) + +---------+ + + + | Component | Value | Ref Range | Performed | Pathologist | | | | | At | Signature | + +---------+ + + + | BLOOD | 142 (H) | 70 - 99 mg/dL | [facility] | | | GLUCOSE, | | | [facility] | | | POC | | | [facility] | | | | | | [facility] | | | | | | TESTS | | + +---------+ + + + + + | Specimen | + + | Blood | + + + + + + + | Performing | Address | City/State/Zipcode | Phone Number | | Organization | | | | + + + + + | [facility] | [address] | [place], [place] | | | [facility] | [address] | [address] | | | TESTS | | | | + + + + + CAPILLARY BLOOD GLUCOSE (NO CHG), POC (08/17/2019 10:00 AM PDT) + +---------+ + + + | Component | Value | Ref Range | Performed | Pathologist | | | | | At | Signature | + +---------+ + + + | BLOOD | 128 (H) | 70 - 99 mg/dL | [facility] | | | [facility], | | | [facility] | | | POC | | | [facility] | | | | | | [facility] | | | | | | TESTS | | + +---------+ + + + + + | Specimen | + + | Blood | + + + + + + + | Performing | Address | City/State/Zipcode | Phone Number | | Organization | | | | + + + + + | [facility] | [address] | [place], [place] | | | [facility] | [facility] | [address] | | | TESTS | | | | + + + + + CAPILLARY BLOOD GLUCOSE (NO CHG), POC (08/17/2019 7:44 AM PDT) + +---------+ + + + | Component | Value | Ref Range | Performed | Pathologist | | | | | At | Signature | + +---------+ + + + | BLOOD | 126 (H) | 70 - 99 mg/dL | [facility] | | | GLUCOSE, | | | [facility] | | | POC | | | [facility] | | | | | | OF CARE | | | | | | TESTS | | + +---------+ + + + + + | Specimen | + + | Blood | + + + + + + + | Performing | Address | City/State/Zipcode | Phone Number | | Organization | | | | + + + + + | [facility] | [address] | [place], [place] | | | [facility] | [facility] | [address] | | | TESTS | | | | + + + + + TACROLIMUS, WHOLE BLOOD (08/17/2019 5:33 AM PDT) + + + + + + | Component | Value | Ref Range | Performed | Pathologist | | | | | At | Signature | + + + + + + | TACROLIMUS | <2.0 (L) | 5.0 - 15.0 | [facility] | | | ([facility]) | | ng/mL | LABORATORY | | | | | | SERVICES, | | | | | | SPECIAL IMM | | | | | | + COAG | | + + + + + + + + | Specimen | + + | Blood - Blood | | (substance) | + + + + + | Narrative | Performed At | + + + | Test performed by immunoassay using [employer]oles[employer] i2000. . | [facility] | | Samples [...] | + + + + + | [facility] | [address] | [place] [address] | | | SERVICES, SPECIAL | [address] | | | | IMM + COAG | | | | + + + + + CAPILLARY BLOOD GLUCOSE (NO CHG), POC (08/17/2019 5:31 AM PDT) + +---------+ + + + | Component | Value | Ref Range | Performed | Pathologist | | | | | At | Signature | + +---------+ + + + | BLOOD | 129 (H) | 70 - 99 mg/dL | [facility] - | | | GLUCOSE, | | | [facility] | | | POC | | | [facility] | | | | | | OF CARE | | | | | | TESTS | | + +---------+ + + + + + | Specimen | + + | Blood | + + + + + + + | Performing | Address | City/State/Zipcode | Phone Number | | Organization | | | | + + + + + | [facility] | [address] | [place], [place] | | | [facility] | [address] | [address] | | | TESTS | | | | + + + + + CAPILLARY BLOOD GLUCOSE (NO CHG), POC (08/17/2019 3:34 AM PDT) + +---------+ + + + | Component | Value | Ref Range | Performed | Pathologist | | | | | At | Signature | + +---------+ + + + | BLOOD | 135 (H) | 70 - 99 mg/dL | [facility] | | | GLUCOSE, | | | [facility] | | | POC | | | [facility] | | | | | | OF CARE | | | | | | TESTS | | + +---------+ + + + + + | Specimen | + + | Blood | + + + + + + + | Performing | Address | City/State/Zipcode | Phone Number | | Organization | | | | + + + + + | [facility] | [address] | [place], [place] | | | [facility] | [address] | [address] | | | TESTS | | | | + + + + + CAPILLARY BLOOD GLUCOSE (NO CHG), POC (08/17/2019 1:30 AM PDT) + +---------+ + + + | Component | Value | Ref Range | Performed | Pathologist | | | | | At | Signature | + +---------+ + + + | BLOOD | 123 (H) | 70 - 99 mg/dL | [facility] | | | GLUCOSE, | | | [facility] | | | POC | | | [facility] | | | | | | OF CARE | | | | | | TESTS | | + +---------+ + + + + + | Specimen | + + | Blood | + + + + + + + | Performing | Address | City/State/Zipcode | Phone Number | | Organization | | | | + + + + + | [facility] | [address] | [place], [place] | | | [facility] | [facility] | [address] | | | TESTS | | | | + + + + + CAPILLARY BLOOD GLUCOSE (NO CHG), POC (08/17/2019 12:24 AM PDT) + +---------+ + + + | Component | Value | Ref Range | Performed | Pathologist | | | | | At | Signature | + +---------+ + + + | BLOOD | 133 (H) | 70 - 99 mg/dL | [facility] | | | GLUCOSE, | | | [facility] | | | POC | | | [facility] | | | | | | OF CARE | | | | | | TESTS | | + +---------+ + + + + + | Specimen | + + | Blood | + + + + + + + | Performing | Address | City/State/Zipcode | Phone Number | | Organization | | | | + + + + + | [facility] | [address] | [place], [place] | | | [facility] | [address] | [address] | | | TESTS | | | | + + + + + CBC AND AUTO DIFF (08/17/2019 12:18 AM PDT) + + + + + + | Component | Value | Ref Range | Performed | Pathologist | | | | | At | Signature | + + + + + + | WHITE CELL | 7.69 | 3.50 - 10.80 | [facility] | | | COUNT | | K/cu mm | LABORATORY | | | | | | SERVICES, | | | | | | CORE | | + + + + + + | RED CELL | 2.58 (L) | 4.50 - 6.00 | [facility] | | | COUNT | | M/cu mm | LABORATORY | | | | | | SERVICES, | | | | | | CORE | | + + + + + + | HEMOGLOBIN | 8.2 (L) | 13.5 - 17.5 | [facility] | | | | | g/dL | LABORATORY | | | | | | SERVICES, | | | | | | CORE | | + + + + + + | HEMATOCRIT | 24.1 (L) | 41.0 - 53.0 % | [facility] | | | | | | LABORATORY | | | | | | SERVICES, | | | | | | CORE | | + + + + + + | MCV | 93.4 | 80.0 - 100.0 fL | [facility] | | | | | | LABORATORY | | | | | | SERVICES, | | | | | | CORE | | + + + + + + | MCHC | 34.0 | 32.0 - 36.0 | [facility] | | | | | g/dL | LABORATORY | | | | | | SERVICES, | | | | | | CORE | | + + + + + + | RDW SD | 58.6 (H) | 35.1 - 46.3 fL | [facility] | | | | | | LABORATORY | | | | | | SERVICES, | | | | | | CORE | | + + + + + + | PLATELET | 37 (L) | 150 - 400 K/cu | [facility] | | | COUNT | | mm | LABORATORY | | | | | | SERVICES, | | | | | | CORE | | + + + + + + | MPV | 11.7 | 9.7 - 12.3 fL | [facility] [...] + + + + | NEUTROPHIL | 90.3 (H) | 50.0 - 70.0 % | [facility] | | | % | | | LABORATORY | | | | | | SERVICES, | | | | | | CORE | | + + + + + + | LYMPHOCYTE | 6.8 (L) | 18.0 - 42.0 % | [facility] | | | % | | | LABORATORY | | | | | | SERVICES, | | | | | | CORE | | + + + + + + | MONOCYTE % | 2.5 (L) | 3.5 - 9.0 % | [facility] | | | | | | LABORATORY | | | | | | SERVICES, | | | | | | CORE | | + + + + + + | EOS % | 0.0 (L) | 1.0 - 3.0 % | [facility] | | | | | | LABORATORY | | | | | | SERVICES, | | | | | | CORE | | + + + + + + | BASO % | 0.1 | 0.0 - 2.0 % | [facility] [...] + + + + | NEUTROPHIL | 6.95 | 1.80 - 7.70 | [facility] | | | # | | K/cu mm | LABORATORY | | | | | | SERVICES, | | | | | | CORE | | + + + + + + | LYMPHOCYTE | 0.52 (L) | 1.00 - 4.80 | [facility] | | | # | | K/cu mm | LABORATORY | | | | | | SERVICES, | | | | | | CORE | | + + + + + + | MONOCYTE # | 0.19 | 0.10 - 0.90 | [facility] | | | | | K/cu mm | LABORATORY | | | | | | SERVICES, | | | | | | CORE | | + + + + + + | EOS # | 0.00 | 0.00 - 0.50 | [facility] | | | | | K/cu mm | LABORATORY | | | | | | SERVICES, | | | | | | CORE | | + + + + + + | BASO # | 0.01 | 0.00 - 0.10 | [...] + | [facility] | [address] | [place] [address] | | | SERVICES, CORE | [address] | | | + + + + + INR (08/17/2019 12:17 AM PDT) + + + + + + | Component | Value | Ref Range | Performed | Pathologist | | | | | At | Signature | + + + + + + | INR | 1.74 (H) | 0.90 - 1.20 INR | [...] mech. valves (2.5 - 3.5) INR | [facility] | + + + + + + + + | Performing | Address | City/State/Zipcode | Phone Number | | Organization | | | | + + + + + | [facility] | [address] | [place] [address] | | | [place] [place] | [address] | | | + + + + + PREALBUMIN (08/17/2019 12:17 AM PDT) + + + + + + | Component | Value | Ref Range | Performed | Pathologist | | | | | At | Signature | + + + + + + | PREALBUMIN | 10.1 (L) | 17.0 - 42.0 | [facility] | | | | | mg/dL | [facility] | | | | | | [place] | | + + + + + + + + | Specimen | + + | Blood - Blood | | (substance) | + + + + + + + | Performing | Address | City/State/Zipcode | Phone Number | | Organization | | | | + + + + + | [facility] | [address] | [place] [address] | | | [place] | | | | + + + + + AMYLASE, PLASMA (08/17/2019 12:17 AM PDT) + +--------+ + + + | Component | Value | Ref Range | Performed | Pathologist | | | | | At | Signature | + +--------+ + + + | AMYLASE,EZEQUIEL | 19 (L) | 25 - 115 U/L | [facility] | | | SMA | | | LABORATORY | | | | | | SERVICES, | | | | | | CORE | | + +--------+ + + + + + | Specimen | + + | Blood - Blood | | (substance) | + + + + + + + | Performing | Address | City/State/Zipcode | Phone Number | | Organization | | | | + + + + + | [facility] | [address] | [place] [address] | | | SERVICES, CORE | [address] | | | + + + + + PHOSPHORUS, PLASMA (08/17/2019 12:17 AM PDT) + +---------+ + + + | Component | Value | Ref Range | Performed | Pathologist | | | | | At | Signature | + +---------+ + + + | PHOSPHORUS, | 6.0 (H) | 2.4 - 4.7 mg/dL | [facility] [...] + | [facility] | [address] | [place] [address] | | | SERVICES, CORE | [address] | | | + + + + + MAGNESIUM, PLASMA (08/17/2019 12:17 AM PDT) + +-------+ + + + | Component | Value | Ref Range | Performed | Pathologist | | | | | At | Signature | + +-------+ + + + | MAGNESIUM,P | 2.6 | 1.6 - 2.6 mg/dL | [facility] [...] + | [facility] | [address] | [place] [address] | | | SERVICES, CORE | [address] | | | + + + + + APTT (ACT. PART. THROMBO TIME) (08/17/2019 12:17 AM PDT) + + + + + + | Component | Value | Ref Range | Performed | Pathologist | | | | | At | Signature | + + + + + + | APTT | 42.2 (H) | 26.0 - 36.0 | [facility] | | | | | seconds | LABORATORY | | | | | | SERVICES, | | | | | | CORE | | + + + + + + + + | Specimen | + + | Blood - Blood | | (substance) | + + + + + | Narrative | Performed At | + + + | APTT values for monitoring heparin therapy may be affected by | [facility] | | specimens processed >1 hour after collection. APTT Therapeutic | LABORATORY | | Range: (75 - 120) sec Heparin | SERVICES, CORE | | levels of 0.35 - 0.7 U/mL | | + + + + + + + + | Performing | Address | City/State/Zipcode | Phone Number | | Organization | | | | + + + + + | [facility] | [address] | [place] [address] | | | SERVICES, CORE | [address] | | | + + + + + LACTATE (08/17/2019 12:17 AM PDT) + +-------+ + + + | Component | Value | Ref Range | Performed | Pathologist | | | | | At | Signature | + +-------+ + + + | LACTATE | 0.8 | mmol/L | [facility] | | | | | | LABORATORY | | | | | | SERVICES, | | | | | | CORE | | + +-------+ + + + + + | Specimen | + + | Blood - Blood | | (substance) | + + + + + | Narrative | Performed At | + + + | Reference Range: Venous blood: 0.5 - 2.2 mmol/L Critical >= | [facility] | | 4.0 mmol/L Arterial blood: 0.5 - 1.6 mmol/L Critical >= 4.0 | LABORATORY | | mmol/L | SERVICES, CORE | + + + + + + + + | Performing | Address | City/State/Zipcode | Phone Number | | Organization | | | | + + + + + | [facility] | [address] | [place] [address] | | | SERVICES, CORE | [address] | | | + + + + + LDH TOTAL, PLASMA (08/17/2019 12:17 AM PDT) + +---------+ + + + | Component | Value | Ref Range | Performed | Pathologist | | | | | At | Signature | + +---------+ + + + | LD TOTAL, | 216 | <=250 U/L | [facility] | | | PLASMA | | | LABORATORY | | | | | | SERVICES, | | | | | | CORE | | + +---------+ + + + | LD CMNT | No Hemo | | [facility] [...] | + + + + + | [facility] [employer] | [address] | [place] [address] | | | SERVICES, CORE | [address] | | | + + + + + COMPLETE METABOLIC SET (NA,K,CL,CO2,BUN,CREAT,GLUC,CA,AST,ALT,BILI TOTAL,ALK PHOS,ALB,PROT TOTAL) (08/17/2019 12:17 AM PDT) + + + + + + | Component | Value | Ref Range | Performed | Pathologist | | | | | At | Signature | + + + + + + | GLUCOSE, | 136 (H) | 70 - 99 mg/dL | [facility] | | | PLASMA | | | LABORATORY | | | (LAB) | | | SERVICES, | | | | | | CORE | | + + + + + + | BUN, PLASMA | 58 (H) | 6 - 20 mg/dL | [facility] | | | (LAB) | | | LABORATORY | | | | | | SERVICES, | | | | | | CORE | | + + + + + + | CREATININE | 1.35 (H) | 0.70 - 1.30 | [facility] | | | PLASMA | | mg/dL | LABORATORY | | | (LAB) | | | SERVICES, | | | | | | CORE | | + + + + + + | EGFR | >60 | >60 mL/min | [facility] | | | - | | | LABORATORY | | | TURKISH | | | SERVICES, | | | | | | CORE | | + + + + + + | EGFR NON | 55 (L) | >60 mL/min | [facility] | | | -JARRED | | | LABORATORY | | | RICAN | | | SERVICES, | | | | | | CORE | | + + + + + + | SODIUM, | 141 | 136 - 145 | [facility] | [...] + + + + | CHLORIDE, | 110 (H) | 97 - 108 mmol/L | [facility] | | | PLASMA | | | LABORATORY | | | (LAB) | | | SERVICES, | | | | | | CORE | | + + + + + + | TOTAL CO2, | 22 | 21 - 32 mmol/L | [facility] | | | PLASMA | | | LABORATORY | | | (LAB) | | | SERVICES, | | | | | | CORE | | + + + + + + | CALCIUM, | 8.4 (L) | 8.6 - 10.2 | [facility] | [...] + + + + | BILIRUBIN | 2.2 (H) | 0.3 - 1.2 mg/dL | [facility] | | | TOTAL | | | LABORATORY | | | | | | SERVICES, | | | | | | CORE | | + + + + + + | TOTAL | 5.2 (L) | 6.4 - 8.2 g/dL | [facility] | | | PROTEIN, | | | LABORATORY | | | PLASMA | | | SERVICES, | | | (LAB) | | | CORE | | + + + + + + | ALBUMIN, | 2.8 (L) | 3.5 - 4.7 g/dL | [facility] | | | PLASMA | | | LABORATORY | | | (LAB) | | | SERVICES, | | | | | | CORE | | + + + + + + | ALK PHOS | 46 (L) | 53 - 128 U/L | [facility] | | | | | | LABORATORY | | | | | | SERVICES, | | | | | | CORE | | + + + + + + | AST(SGOT) | 186 (H) | <=41 U/L | [facility] | | | | | | LABORATORY | | | | | | SERVICES, | | | | | | CORE | | + + + + + + | ALT (SGPT) | 346 (H) | <=60 U/L | [facility] | | | | | | LABORATORY | | | | | | SERVICES, | | | | | | CORE | | + + + + + + | ANION GAP | 9 | 4 - 11 mmol/L | [facility] | | | | | | LABORATORY | | | | | | SERVICES, | | | | | | CORE | | + + + + + + | ANION | 12 (H) | 4 - 11 [...] | + + + + + | [email or web address] | [address] | [place] [address] | | | SERVICES, ARTIS | [address] | | | + + + + + CAPILLARY BLOOD GLUCOSE (NO CHG), POC (08/16/2019 11:17 PM PDT) + +---------+ + + + | Component | Value | Ref Range | Performed | Pathologist | | | | | At | Signature | + +---------+ + + + | BLOOD | 133 (H) | 70 - 99 mg/dL | [facility] - | | | GLUCOSE, | | | [facility] | | | POC | | | [facility] | | | | | | OF CARE | | | | | | TESTS | | + +---------+ + + + + + | Specimen | + + | Blood | + + + + + + + | Performing | Address | City/State/Zipcode | Phone Number | | Organization | | | | + + + + + | [facility] | [address] | [place], [place] | | | [facility] [place] | [facility] | [address] | | | TESTS | | | | + + + + + CAPILLARY BLOOD GLUCOSE (NO CHG), POC (08/16/2019 10:06 PM PDT) + +---------+ + + + | Component | Value | Ref Range | Performed | Pathologist | | | | | At | Signature | + +---------+ + + + | BLOOD | 158 (H) | 70 - 99 mg/dL | [facility] - | | | GLUCOSE, | | | [facility] | | | POC | | | [facility] | | | | | | OF CARE | | | | | | TESTS | | + +---------+ + + + + + | Specimen | + + | Blood | + + + + + + + | Performing | Address | City/State/Zipcode | Phone Number | | Organization | | | | + + + + + | [facility] | [address] | [place], [place] | | | [facility] | [address] | [address] | | | TESTS | | | | + + + + + PRODUCT - RED CELLS LEUKOREDUCED (08/16/2019 9:19 PM PDT) + + + + + + | Component | Value | Ref Range | Performed | Pathologist | | | | | At | Signature | + + + + + + | PRODUCT | -1 RED BLOOD CELLS | | [facility] | | | DESCRIPTION | LEUKOREDUCED | | LABORATORY | | | | | | SERVICES, | | | | | | TRANSFUSION | | | | | | MEDICINE | | + + + + + + | PRODUCT | [id number] | | [facility] | | | UNIT # | | | LABORATORY | | | | | | SERVICES, | | | | | | TRANSFUSION | | | | | | MEDICINE | | + + + + + + | UNIT ABO | A | | [facility] | | | | | | LABORATORY | | | | | | SERVICES, | | | | | | TRANSFUSION | | | | | | MEDICINE | | + + + + + + | UNIT RH | POS | | [facility] | | | | | | LABORATORY | | | | | | SERVICES, | | | | | | TRANSFUSION | | | | | | MEDICINE | | + + + + + + | STATUS OF | Presumed Transfused | | [facility] | | | UNIT | | | LABORATORY | | | | | | SERVICES, | | | | | | TRANSFUSION | | | | | | MEDICINE | | + + + + + + | EXPIRATION | [id number] | | [facility] | | | DATE | | | LABORATORY | | | | | | SERVICES, | | | | | | TRANSFUSION | | | | | | MEDICINE | | + + + + + + | BLOOD TYPE | [id number] | | [facility] | | | BARCODE | | | LABORATORY | | | | | | SERVICES, | | | | | | TRANSFUSION | | | | | | MEDICINE | | + + + + + + | BLOOD | [id number] | | [facility] | | | PRODUCT | | | LABORATORY | | | CODE | | | SERVICES, | | | | | | TRANSFUSION | | | | | | MEDICINE | | + + + + + + + + | Specimen | + + | | + + + + + + + | Performing | Address | City/State/Zipcode | Phone Number | | Organization | | | | + + + + + | [email or web address] | [address] | [place] [address] | | | SERVICES, | [address] | | | | TRANSFUSION MEDICINE | | | | + + + + + CAPILLARY BLOOD GLUCOSE (NO CHG), POC (08/16/2019 9:15 PM PDT) + +---------+ + + + | Component | Value | Ref Range | Performed | Pathologist | | | | | At | Signature | + +---------+ + + + | BLOOD | 146 (H) | 70 - 99 mg/dL | [facility] - | | | GLUCOSE, | | | [facility] | | | POC | | | [facility] | | | | | | OF CARE | | | | | | TESTS | | + +---------+ + + + + + | Specimen | + + | Blood | + + + + + + + | Performing | Address | City/State/Zipcode | Phone Number | | Organization | | | | + + + + + | [facility] | [address] | [place], [place] | | | [facility] | [address] | [address] | | | TESTS | | | | + + + + + CBC AND AUTO DIFF (08/16/2019 8:52 PM PDT) + + + + + + | Component | Value | Ref Range | Performed | Pathologist | | | | | At | Signature | + + + + + + | WHITE CELL | 7.16 | 3.50 - 10.80 | [facility] | | | COUNT | | K/cu mm | LABORATORY | | | | | | SERVICES, | | | | | | CORE | | + + + + + + | RED CELL | 2.47 (L) | 4.50 - 6.00 | [facility] | | | COUNT | | M/cu mm | LABORATORY | | | | | | SERVICES, | | | | | | CORE | | + + + + + + | HEMOGLOBIN | 8.0 (L) | 13.5 - 17.5 | [facility] | | | | | g/dL | LABORATORY | | | | | | SERVICES, | | | | | | CORE | | + + + + + + | HEMATOCRIT | 23.7 (L) | 41.0 - 53.0 % | [facility] | | | | | | LABORATORY | | | | | | SERVICES, | | | | | | CORE | | + + + + + + | MCV | 96.0 | 80.0 - 100.0 fL | [facility] | | | | | | LABORATORY | | | | | | SERVICES, | | | | | | CORE | | + + + + + + | MCHC | 33.8 | 32.0 - 36.0 | [facility] | | | | | g/dL | LABORATORY | | | | | | SERVICES, | | | | | | CORE | | + + + + + + | RDW SD | 62.4 (H) | 35.1 - 46.3 fL | [facility] | | | | | | LABORATORY | | | | | | SERVICES, | | | | | | CORE | | + + + + + + | PLATELET | 38 (L) | 150 - 400 K/cu | [facility] | | | COUNT | | mm | LABORATORY | | | | | | SERVICES, | | | | | | CORE | | + + + + + + | MPV | 10.8 | 9.7 - 12.3 fL | [facility] [...] + + + + | NEUTROPHIL | 91.1 (H) | 50.0 - 70.0 % | [facility] | | | % | | | LABORATORY | | | | | | SERVICES, | | | | | | CORE | | + + + + + + | LYMPHOCYTE | 6.7 (L) | 18.0 - 42.0 % | [facility] | | | % | | | LABORATORY | | | | | | SERVICES, | | | | | | CORE | | + + + + + + | MONOCYTE % | 1.5 (L) | 3.5 - 9.0 % | [facility] | | | | | | LABORATORY | | | | | | SERVICES, | | | | | | CORE | | + + + + + + | EOS % | 0.0 (L) | 1.0 - 3.0 % | [facility] | | | | | | LABORATORY | | | | | | SERVICES, | | | | | | CORE | | + + + + + + | BASO % | 0.3 | 0.0 - 2.0 % | [facility] | | | | | | LABORATORY | | | | | | SERVICES, | | | | | | CORE | | + + + + + + | IG% | 0.4 | 0.0 - 1.0 % | [facility] | | | | | | LABORATORY | | | | | | SERVICES, | | | | | | CORE | | + + + + + + | NEUTROPHIL | 6.52 | 1.80 - 7.70 | [facility] | | | # | | K/cu mm | LABORATORY | | | | | | SERVICES, | | | | | | CORE | | + + + + + + | LYMPHOCYTE | 0.48 (L) | 1.00 - 4.80 | [facility] | | | # | | K/cu mm | LABORATORY | | | | | | SERVICES, | | | | | | CORE | | + + + + + + | MONOCYTE # | 0.11 | 0.10 - 0.90 | [facility] | | | | | K/cu mm | LABORATORY | | | | | | SERVICES, | | | | | | CORE | | + + + + + + | EOS # | 0.00 | 0.00 - 0.50 | [facility] | [...] + | [facility] | [address] | [place] [address] | | | SERVICES, CORE | [address] | | | + + + + + APTT (ACT. PART. THROMBO TIME) (08/16/2019 8:52 PM PDT) + + + + + + | Component | Value | Ref Range | Performed | Pathologist | | | | | At | Signature | + + + + + + | APTT | 44.5 (H) | 26.0 - 36.0 | [facility] | | | | | seconds | LABORATORY | | | | | | SERVICES, | | | | | | CORE | | + + + + + + + + | Specimen | + + | Blood - Blood | | (substance) | + + + + + | Narrative | Performed At | + + + | APTT values for monitoring heparin therapy may be affected by | [facility] | | specimens processed >1 hour after collection. APTT Therapeutic | LABORATORY | | Range: (75 - 120) sec Heparin | SERVICES, CORE | | levels of 0.35 - 0.7 U/mL | | + + + + + + + + | Performing | Address | City/State/Zipcode | Phone Number | | Organization | | | | + + + + + | [facility] | [address] | [place] [address] | | | SERVICES, CORE | [address] | | | + + + + + INR (08/16/2019 8:52 PM PDT) + + + + + + | Component | Value | Ref Range | Performed | Pathologist | | | | | At | Signature | + + + + + + | INR | 1.81 (H) | 0.90 - 1.20 INR | [...] + | [facility] | [address] | [place] [address] | | | SERVICES, CORE | [address] | | | + + + + + LACTATE (08/16/2019 8:52 PM PDT) + +-------+ + + + | Component | Value | Ref Range | Performed | Pathologist | | | | | At | Signature | + +-------+ + + + | LACTATE | 0.5 | mmol/L | [facility] | | | | | | LABORATORY | | | | | | SERVICES, | | | | | | CORE | | + +-------+ + + + + + | Specimen | + + | Blood - Blood | | (substance) | + + + + + | Narrative | Performed At | + + + | Reference Range: Venous blood: 0.5 - 2.2 mmol/L Critical >= | [facility] | | 4.0 mmol/L Arterial blood: 0.5 - 1.6 mmol/L Critical >= 4.0 | LABORATORY | | mmol/L | SERVICES, CORE | + + + + + + + + | Performing | Address | City/State/Zipcode | Phone Number | | Organization | | | | + + + + + | [facility] | [address] | [place] [address] | | | SERVICES, CORE | [address] | | | + + + + + LDH TOTAL, PLASMA (08/16/2019 8:52 PM PDT) + +---------+ + + + | Component | Value | Ref Range | Performed | Pathologist | | | | | At | Signature | + +---------+ + + + | LD TOTAL, | 244 | <=250 U/L | [facility] | | | PLASMA | | | LABORATORY | | | | | | SERVICES, | | | | | | CORE | | + +---------+ + + + | LD CMNT | No Hemo | | [facility] [...] | + + + + + | [facility] | [address] | [place] [address] | | | SERVICES, CORE | [address] | | | + + + + + COMPLETE METABOLIC SET (NA,K,CL,CO2,BUN,CREAT,GLUC,CA,AST,ALT,BILI TOTAL,ALK PHOS,ALB,PROT TOTAL) (08/16/2019 8:52 PM PDT) + + + + + + | Component | Value | Ref Range | Performed | Pathologist | | | | | At | Signature | + + + + + + | GLUCOSE, | 161 (H) | 70 - 99 mg/dL | [facility] | | | PLASMA | | | LABORATORY | | | (LAB) | | | SERVICES, | | | | | | CORE | | + + + + + + | BUN, PLASMA | 57 (H) | 6 - 20 mg/dL | [facility] | | | (LAB) | | | LABORATORY | | | | | | SERVICES, | | | | | | CORE | | + + + + + + | CREATININE | 1.32 (H) | 0.70 - 1.30 | [facility] | | | PLASMA | | mg/dL | LABORATORY | | | (LAB) | | | SERVICES, | | | | | | CORE | | + + + + + + | EGFR | >60 | >60 mL/min | [facility] | | | - | | | LABORATORY | | | [place] | | | SERVICES, | | | | | | CORE | | + + + + + + | EGFR NON | 57 (L) | >60 mL/min | [facility] | | | -JARRED | | | LABORATORY | | | RICAN | | | SERVICES, | | | | | | CORE | | + + + + + + | SODIUM, | 140 | 136 - 145 | [facility] | [...] + + + + | CHLORIDE, | 110 (H) | 97 - 108 mmol/L | [facility] | | | PLASMA | | | LABORATORY | | | (LAB) | | | SERVICES, | | | | | | CORE | | + + + + + + | TOTAL CO2, | 24 | 21 - 32 mmol/L | [facility] | | | PLASMA | | | LABORATORY | | | (LAB) | | | SERVICES, | | | | | | CORE | | + + + + + + | CALCIUM, | 8.5 (L) | 8.6 - 10.2 | [facility] | [...] + + + + | BILIRUBIN | 2.3 (H) | 0.3 - 1.2 mg/dL | [facility] | | | TOTAL | | | LABORATORY | | | | | | SERVICES, | | | | | | CORE | | + + + + + + | TOTAL | 5.1 (L) | 6.4 - 8.2 g/dL | [facility] | | | PROTEIN, | | | LABORATORY | | | PLASMA | | | SERVICES, | | | (LAB) | | | CORE | | + + + + + + | ALBUMIN, | 2.6 (L) | 3.5 - 4.7 g/dL | [facility] | | | PLASMA | | | LABORATORY | | | (LAB) | | | SERVICES, | | | | | | CORE | | + + + + + + | ALK PHOS | 53 | 53 - 128 U/L | [facility] | | | | | | LABORATORY | | | | | | SERVICES, | | | | | | CORE | | + + + + + + | AST(SGOT) | 253 (H) | <=41 U/L | [facility] | | | | | | LABORATORY | | | | | | SERVICES, | | | | | | CORE | | + + + + + + | ALT (SGPT) | 398 (H) | <=60 U/L | [facility] | | [...] + + + + | ANION | 9 | 4 - 11 mmol/L | [facility] [...] | + + + + + | [facility] | [address] | [place] [address] | | | SERVICES, ARTIS | [address] | | | + + + + + CAPILLARY BLOOD GLUCOSE (NO CHG), POC (08/16/2019 8:07 PM PDT) + +---------+ + + + | Component | Value | Ref Range | Performed | Pathologist | | | | | At | Signature | + +---------+ + + + | BLOOD | 149 (H) | 70 - 99 mg/dL | [facility] - | | | GLUCOSE, | | | [facility] | | | POC | | | [facility] | | | | | | [facility]ARE | | | | | | TESTS | | + +---------+ + + + + + | Specimen | + + | Blood | + + + + + + + | Performing | Address | City/State/Zipcode | Phone Number | | Organization | | | | + + + + + | [facility] | [address] | [place], [place] | | | [facility] | [facility] [facility] | [address] | | | TESTS | | | | + + + + + CAPILLARY BLOOD GLUCOSE (NO CHG), POC (08/16/2019 6:57 PM PDT) + +---------+ + + + | Component | Value | Ref Range | Performed | Pathologist | | | | | At | Signature | + +---------+ + + + | BLOOD | 133 (H) | 70 - 99 mg/dL | [facility] - | | | GLUCOSE, | | | [facility] | | | POC | | | [facility] | | | | | | OF CARE | | | | | | TESTS | | + +---------+ + + + + + | Specimen | + + | Blood | + + + + + + + | Performing | Address | City/State/Zipcode | Phone Number | | Organization | | | | + + + + + | [facility] | [address] | [place], [place] | | | [facility] | [facility] | [address] | | | TESTS | | | | + + + + + CAPILLARY BLOOD GLUCOSE (NO CHG), POC (08/16/2019 6:14 PM PDT) + +---------+ + + + | Component | Value | Ref Range | Performed | Pathologist | | | | | At | Signature | + +---------+ + + + | BLOOD | 147 (H) | 70 - 99 mg/dL | [facility] - | | | GLUCOSE, | | | [place] | | | POC | | | [facility] | | | | | | OF CARE | | | | | | TESTS | | + +---------+ + + + + + | Specimen | + + | Blood | + + + + + + + | Performing | Address | City/State/Zipcode | Phone Number | | Organization | | | | + + + + + | [facility] | [address] | [place], [place] | | | [facility] | [address] | [address] | | | TESTS | | | | + + + + + CAPILLARY BLOOD GLUCOSE (NO CHG), POC (08/16/2019 5:10 PM PDT) + +---------+ + + + | Component | Value | Ref Range | Performed | Pathologist | | | | | At | Signature | + +---------+ + + + | BLOOD | 151 (H) | 70 - 99 mg/dL | [facility] - | | | GLUCOSE, | | | [facility] | | | POC | | | [facility] | | | | | | OF CARE | | | | | | TESTS | | + +---------+ + + + + + | Specimen | + + | Blood | + + + + + + + | Performing | Address | City/State/Zipcode | Phone Number | | Organization | | | | + + + + + | [facility] | [address] | [place], [place] | | | [facility] | [address] | [address] | | | TESTS | | | | + + + + + CBC AND AUTO DIFF (08/16/2019 4:48 PM PDT) + + + + + + | Component | Value | Ref Range | Performed | Pathologist | | | | | At | Signature | + + + + + + | WHITE CELL | 6.88 | 3.50 - 10.80 | [facility] | | | COUNT | | K/cu mm | LABORATORY | | | | | | SERVICES, | | | | | | CORE | | + + + + + + | RED CELL | 2.66 (L) | 4.50 - 6.00 | [facility] | | | COUNT | | M/cu mm | LABORATORY | | | | | | SERVICES, | | | | | | CORE | | + + + + + + | HEMOGLOBIN | 8.5 (L) | 13.5 - 17.5 | [facility] | | | | | g/dL | LABORATORY | | | | | | SERVICES, | | | | | | CORE | | + + + + + + | HEMATOCRIT | 25.3 (L) | 41.0 - 53.0 % | [facility] | | | | | | LABORATORY | | | | | | SERVICES, | | | | | | CORE | | + + + + + + | MCV | 95.1 | 80.0 - 100.0 fL | [facility] | | | | | | LABORATORY | | | | | | SERVICES, | | | | | | CORE | | + + + + + + | MCHC | 33.6 | 32.0 - 36.0 | [facility] | | | | | g/dL | LABORATORY | | | | | | SERVICES, | | | | | | CORE | | + + + + + + | RDW SD | 63.0 (H) | 35.1 - 46.3 fL | [facility] | | | | | | LABORATORY | | | | | | SERVICES, | | | | | | CORE | | + + + + + + | PLATELET | 44 (L) | 150 - 400 K/cu | [facility] | | | COUNT | | mm | LABORATORY | | | | | | SERVICES, | | | | | | CORE | | + + + + + + | MPV | 10.5 | 9.7 - 12.3 fL | [facility] [...] + + + + | NEUTROPHIL | 89.6 (H) | 50.0 - 70.0 % | [facility] | | | % | | | LABORATORY | | | | | | SERVICES, | | | | | | CORE | | + + + + + + | LYMPHOCYTE | 7.8 (L) | 18.0 - 42.0 % | [facility] | | | % | | | LABORATORY | | | | | | SERVICES, | | | | | | CORE | | + + + + + + | MONOCYTE % | 2.2 (L) | 3.5 - 9.0 % | [facility] | | | | | | LABORATORY | | | | | | SERVICES, | | | | | | CORE | | + + + + + + | EOS % | 0.0 (L) | 1.0 - 3.0 % | [facility] | | | | | | LABORATORY | | | | | | SERVICES, | | | | | | CORE | | + + + + + + | BASO % | 0.1 | 0.0 - 2.0 % | [facility] [...] + + + + | NEUTROPHIL | 6.16 | 1.80 - 7.70 | [facility] | | | # | | K/cu mm | LABORATORY | | | | | | SERVICES, | | | | | | CORE | | + + + + + + | LYMPHOCYTE | 0.54 (L) | 1.00 - 4.80 | [facility] | | | # | | K/cu mm | LABORATORY | | | | | | SERVICES, | | | | | | CORE | | + + + + + + | MONOCYTE # | 0.15 | 0.10 - 0.90 | [facility] | | | | | K/cu mm | LABORATORY | | | | | | SERVICES, | | | | | | CORE | | + + + + + + | EOS # | 0.00 | 0.00 - 0.50 | [facility] | | | | | K/cu mm | LABORATORY | | | | | | SERVICES, | | | | | | CORE | | + + + + + + | BASO # | 0.01 | 0.00 - 0.10 | [...] + + | [facility] | [address] | [place] [address] | | | SERVICES, CORE | [address] | | | + + + + + APTT (ACT. PART. THROMBO TIME) (08/16/2019 4:48 PM PDT) + + + + + + | Component | Value | Ref Range | Performed | Pathologist | | | | | At | Signature | + + + + + + | APTT | 47.5 (H) | 26.0 - 36.0 | [facility] | | | | | seconds | LABORATORY | | | | | | SERVICES, | | | | | | CORE | | + + + + + + + + | Specimen | + + | Blood - Blood | | (substance) | + + + + + | Narrative | Performed At | + + + | APTT values for monitoring heparin therapy may be affected by | [facility] | | specimens processed >1 hour after collection. APTT Therapeutic | LABORATORY | | Range: (75 - 120) sec Heparin | SERVICES, CORE | | levels of 0.35 - 0.7 U/mL | | + + + + + + + + | Performing | Address | City/State/Zipcode | Phone Number | | Organization | | | | + + + + + | [facility] | [address] | [place] [address] | | | SERVICES, CORE | [address] | | | + + + + + INR (08/16/2019 4:48 PM PDT) + + + + + + | Component | Value | Ref Range | Performed | Pathologist | | | | | At | Signature | + + + + + + | INR | 1.93 (H) | 0.90 - 1.20 INR | [...] + | [facility] | [address] | [place] [address] | | | SERVICES, CORE | [address] | | | + + + + + LDH TOTAL, PLASMA (08/16/2019 4:48 PM PDT) + +---------+ + + + | Component | Value | Ref Range | Performed | Pathologist | | | | | At | Signature | + +---------+ + + + | LD TOTAL, | 293 (H) | <=250 U/L | [facility] | | | PLASMA | | | LABORATORY | | | | | | SERVICES, | | | | | | CORE | | + +---------+ + + + | LD CMNT | No Hemo | | [facility] [...] + + + + + | [facility] | [address] | [place] [address] | | | SERVICES, CORE | [address] | | | + + + + + COMPLETE METABOLIC SET (NA,K,CL,CO2,BUN,CREAT,GLUC,CA,AST,ALT,BILI TOTAL,ALK PHOS,ALB,PROT TOTAL) (08/16/2019 4:48 PM PDT) + +---------+ + + + | Component | Value | Ref Range | Performed | Pathologist | | | | | At | Signature | + +---------+ + + + | GLUCOSE, | 167 (H) | 70 - 99 mg/dL | [facility] | | | PLASMA | | | LABORATORY | | | (LAB) | | | SERVICES, | | | | | | CORE | | + +---------+ + + + | BUN, PLASMA | 55 (H) | 6 - 20 mg/dL | [facility] | | | (LAB) | | | LABORATORY | | | | | | SERVICES, | | | | | | CORE | | + +---------+ + + + | CREATININE | 1.22 | 0.70 - 1.30 | [facility] | | | PLASMA | | mg/dL | LABORATORY | | | (LAB) | | | SERVICES, | | | | | | CORE | | + +---------+ + + + | EGFR | >60 | >60 mL/min | [facility] | | | - | | | LABORATORY | | | TURKISH | | | SERVICES, | | | | | | CORE | | + +---------+ + + + | EGFR NON | >60 | >60 mL/min | [facility] | | | -JARRED | | | LABORATORY | | | RICAN | | | SERVICES, | | | | | | CORE | | + +---------+ + + + | SODIUM, | 140 | 136 - 145 | [facility] | | | PLASMA | | mmol/L | LABORATORY | | | (LAB) | | | SERVICES, | | | | | | CORE | | + +---------+ + + + | POTASSIUM, | 4.4 | 3.4 - 5.0 | [facility] | | | PLASMA | | mmol/L | LABORATORY | | | (LAB) | | | SERVICES, | | | | | | CORE | | + +---------+ + + + | CHLORIDE, | 110 (H) | 97 - 108 mmol/L | [facility] | | | PLASMA | | | LABORATORY | | | (LAB) | | | SERVICES, | | | | | | CORE | | + +---------+ + + + | TOTAL CO2, | 23 | 21 - 32 mmol/L | [facility] | | | PLASMA | | | LABORATORY | | | (LAB) | | | SERVICES, | | | | | | CORE | | + +---------+ + + + | CALCIUM, | 8.3 (L) | 8.6 - 10.2 | [facility] | | | PLASMA | | mg/dL | LABORATORY | | | (LAB) | | | SERVICES, | | | | | | CORE | | + +---------+ + + + | CALCIUM(ALB | 9.4 | 8.6 - 10.2 | [facility] | | | CORRECTED) | | mg/dL | LABORATORY | | | | | | SERVICES, | | | | | | CORE | | + +---------+ + + + | BILIRUBIN | 2.6 (H) | 0.3 - 1.2 mg/dL | [facility] | | | TOTAL | | | LABORATORY | | | | | | SERVICES, | | | | | | CORE | | + +---------+ + + + | TOTAL | 5.1 (L) | 6.4 - 8.2 g/dL | [facility] | | | PROTEIN, | | | LABORATORY | | | PLASMA | | | SERVICES, | | | (LAB) | | | CORE | | + +---------+ + + + | ALBUMIN, | 2.6 (L) | 3.5 - 4.7 g/dL | [facility] | | | PLASMA | | | LABORATORY | | | (LAB) | | | SERVICES, | | | | | | CORE | | + +---------+ + + + | ALK PHOS | 56 | 53 - 128 U/L | [facility] | | | | | | LABORATORY | | | | | | SERVICES, | | | | | | CORE | | + +---------+ + + + | AST(SGOT) | 345 (H) | <=41 U/L | [facility] | | | | | | LABORATORY | | | | | | SERVICES, | | | | | | CORE | | + +---------+ + + + | ALT (SGPT) | 465 (H) | <=60 U/L | [facility] | | | | | | LABORATORY | | | | | | SERVICES, | | | | | | CORE | | + +---------+ + + + | ANION GAP | 7 | 4 - 11 mmol/L | [facility] | | | | | | LABORATORY | | | | | | SERVICES, | | | | | | CORE | | + +---------+ + + + | ANION | 10 | 4 - 11 mmol/L | [facility] | | | GAP(ALB | | | LABORATORY | | | CORRECTED) | | | SERVICES, | | | | | | CORE | | + +---------+ + + + | POTASSIUM | No Hemo | | [facility] | | | CMNT | | | LABORATORY | | | | | | SERVICES, | | | | | | CORE | | + +---------+ + + + | BILI T CMNT | No Hemo | | [facility] | | | | | | LABORATORY | | | | | | SERVICES, | | | | | | CORE | | + +---------+ + + + | AST CMNT | [...] MDRD equation recommended by the National | [facility] | | Kidney Disease Education Program. Estimated [...] + | [facility] | [address] | [place] [address] | | | SERVICES, CORE | [address] | | | + + + + + LACTATE (08/16/2019 4:45 PM PDT) + +-------+ + + + | Component | Value | Ref Range | Performed | Pathologist | | | | | At | Signature | + +-------+ + + + | LACTATE | 1.1 | mmol/L | [facility] | | | | | | LABORATORY | | | | | | SERVICES, | | | | | | CORE | | + +-------+ + + + + + | Specimen | + + | Blood - Blood | | (substance) | + + + + + | Narrative | Performed At | + + + | Reference Range: Venous blood: 0.5 - 2.2 mmol/L Critical >= | [facility] | | 4.0 mmol/L Arterial blood: 0.5 - 1.6 mmol/L Critical >= 4.0 | LABORATORY | | mmol/L | [facility] | + + + + + + + + | Performing | Address | City/State/Zipcode | Phone Number | | Organization | | | | + + + + + | [facility] | [address] | [place] [address] | | | SERVICES, CORE | [address] | | | + + + + + CAPILLARY BLOOD GLUCOSE (NO CHG), POC (08/16/2019 4:00 PM PDT) + +---------+ + + + | Component | Value | Ref Range | Performed | Pathologist | | | | | At | Signature | + +---------+ + + + | BLOOD | 174 (H) | 70 - 99 mg/dL | [facility] - | | | GLUCOSE, | | | [facility] | | | POC | | | [facility] | | | | | | OF CARE | | | | | | TESTS | | + +---------+ + + + + + | Specimen | + + | Blood | + + + + + + + | Performing | Address | City/State/Zipcode | Phone Number | | Organization | | | | + + + + + | [facility] | [address] | [place], [place] | | | [facility] | [facility] | [address] | | | TESTS | | | | + + + + + CAPILLARY BLOOD GLUCOSE (NO CHG), POC (08/16/2019 2:15 PM PDT) + +---------+ + + + | Component | Value | Ref Range | Performed | Pathologist | | | | | At | Signature | + +---------+ + + + | BLOOD | 202 (H) | 70 - 99 mg/dL | [facility] - | | | GLUCOSE, | | | [place] | | | POC | | | [facility] | | | | | | OF CARE | | | | | | TESTS | | + +---------+ + + + + + | Specimen | + + | Blood | + + + + + + + | Performing | Address | City/State/Zipcode | Phone Number | | Organization | | | | + + + + + | [facility] | [address] | [place], [place] | | | [facility] | [address] | [address] | | | TESTS | | | | + + + + + CAPILLARY BLOOD GLUCOSE (NO CHG), POC (08/16/2019 1:12 PM PDT) + +---------+ + + + | Component | Value | Ref Range | Performed | Pathologist | | | | | At | Signature | + +---------+ + + + | BLOOD | 222 (H) | 70 - 99 mg/dL | [facility] - | | | GLUCOSE, | | | [facility] | | | POC | | | [facility] | | | | | | OF CARE | | | | | | TESTS | | + +---------+ + + + + + | Specimen | + + | Blood | + + + + + + + | Performing | Address | City/State/Zipcode | Phone Number | | Organization | | | | + + + + + | [facility] | [address] | [place], [place] | | | [facility] | [facility] | [address] | | | TESTS | | | | + + + + + RBC MORPHOLOGY (08/16/2019 12:20 PM PDT) + + + + + + | Component | Value | Ref Range | Performed | Pathologist | | | | | At | Signature | + + + + + + | ANISOCYTOSI | 1+(10-25cells/HPF) | | [facility] | | | S | | | LABORATORY | | | | | | SERVICES, | | | | | | CORE | | + + + + + + | MACROCYTOSI | 1+(10-25cells/HPF) | | [facility] | | | S | | | LABORATORY | | | | | | SERVICES, | | | | | | CORE | | + + + + + + | SCHISTOCYTE | 1+ (<1-2cells/HPF) | | [facility] | | | S | | | LABORATORY | | | | | | SERVICES, | | | | | | CORE | | + + + + + + | ACANTHOCYTE | 1+ (<1-2cells/HPF) | | [facility] | | | S | | | LABORATORY | | | [...] + | [facility] | [address] | [place] [address] | | | SERVICES, CORE | [address] | | | + + + + + CBC AND AUTO DIFF (08/16/2019 12:20 PM PDT) + + + + + + | Component | Value | Ref Range | Performed | Pathologist | | | | | At | Signature | + + + + + + | WHITE CELL | 5.47 | 3.50 - 10.80 | [facility] | | | COUNT | | K/cu mm | LABORATORY | | | | | | SERVICES, | | | | | | CORE | | + + + + + + | RED CELL | 2.63 (L) | 4.50 - 6.00 | [facility] | | | COUNT | | M/cu mm | LABORATORY | | | | | | SERVICES, | | | | | | CORE | | + + + + + + | HEMOGLOBIN | 8.6 (L) | 13.5 - 17.5 | [facility] | | | | | g/dL | LABORATORY | | | | | | SERVICES, | | | | | | CORE | | + + + + + + | HEMATOCRIT | 25.2 (L) | 41.0 - 53.0 % | [facility] | | | | | | LABORATORY | | | | | | SERVICES, | | | | | | CORE | | + + + + + + | MCV | 95.8 | 80.0 - 100.0 fL | [facility] | | | | | | LABORATORY | | | | | | SERVICES, | | | | | | CORE | | + + + + + + | MCHC | 34.1 | 32.0 - 36.0 | [facility] | | | | | g/dL | LABORATORY | | | | | | SERVICES, | | | | | | CORE | | + + + + + + | RDW SD | 62.1 (H) | 35.1 - 46.3 fL | [facility] | | | | | | LABORATORY | | | | | | SERVICES, | | | | | | CORE | | + + + + + + | PLATELET | 42 (L) | 150 - 400 K/cu | [facility] | | | COUNT | | mm | LABORATORY | | | | | | SERVICES, | | | | | | CORE | | + + + + + + | MPV | Comment: Not Measured | | [facility] | | | | [...] + + + + | NEUTROPHIL | 88.4 (H) | 50.0 - 70.0 % | [facility] | | | % | | | LABORATORY | | | | | | SERVICES, | | | | | | CORE | | + + + + + + | LYMPHOCYTE | 8.4 (L) | 18.0 - 42.0 % | [facility] | | | % | | | LABORATORY | | | | | | SERVICES, | | | | | | CORE | | + + + + + + | MONOCYTE % | 2.7 (L) | 3.5 - 9.0 % | [facility] | | | | | | LABORATORY | | | | | | SERVICES, | | | | | | CORE | | + + + + + + | EOS % | 0.0 (L) | 1.0 - 3.0 % | [facility] | | | | | | LABORATORY | | | | | | SERVICES, | | | | | | CORE | | + + + + + + | BASO % | 0.0 | 0.0 - 2.0 % | [facility] | | | | | | LABORATORY | | | | | | SERVICES, | | | | | | CORE | | + + + + + + | IG% | 0.5 | 0.0 - 1.0 % | [facility] | | | | | | LABORATORY | | | | | | SERVICES, | | | | | | CORE | | + + + + + + | NEUTROPHIL | 4.83 | 1.80 - 7.70 | [facility] | | | # | | K/cu mm | LABORATORY | | | | | | SERVICES, | | | | | | CORE | | + + + + + + | LYMPHOCYTE | 0.46 (L) | 1.00 - 4.80 | [facility] | | | # | | K/cu mm | LABORATORY | | | | | | SERVICES, | | | | | | CORE | | + + + + + + | MONOCYTE # | 0.15 | 0.10 - 0.90 | [facility] | | | | | K/cu mm | LABORATORY | | | | | | SERVICES, | | | | | | CORE | | + + + + + + | EOS # | 0.00 | 0.00 - 0.50 | [facility] | | | | | K/cu mm | LABORATORY | | | | | | SERVICES, | | | | | | CORE | | + + + + + + | BASO # | 0.00 | 0.00 - 0.10 | [facility] | [...] | + + + + + | [facility] | [address] | [place] [address] | | | SERVICES, CORE | [address] | | | + + + + + APTT (ACT. PART. THROMBO TIME) (08/16/2019 12:20 PM PDT) + + + + + + | Component | Value | Ref Range | Performed | Pathologist | | | | | At | Signature | + + + + + + | APTT | 49.5 (H) | 26.0 - 36.0 | [facility] | | | | | seconds | LABORATORY | | | | | | SERVICES, | | | | | | CORE | | + + + + + + + + | Specimen | + + | Blood - Blood | | (substance) | + + + + + | Narrative | Performed At | + + + | APTT values for monitoring heparin therapy may be affected by | [facility] | | specimens processed >1 hour after collection. APTT Therapeutic | LABORATORY | | Range: (75 - 120) sec Heparin | [facility] | | levels of 0.35 - 0.7 U/mL | | + + + + + + + + | Performing | Address | City/State/Zipcode | Phone Number | | Organization | | | | + + + + + | [facility] | [address] | [place] [address] | | | SERVICES, CORE | [address] | | | + + + + + INR (08/16/2019 12:20 PM PDT) + + + + + + | Component | Value | Ref Range | Performed | Pathologist | | | | | At | Signature | + + + + + + | INR | 2.21 (H) | 0.90 - 1.20 INR | [...] mech. valves (2.5 - 3.5) INR | [facility] | + + + + + + + + | Performing | Address | City/State/Zipcode | Phone Number | | Organization | | | | + + + + + | [facility] | [address] | [place] [address] | | | [facility] | [address] | | | + + + + + LACTATE (08/16/2019 12:20 PM PDT) + +-------+ + + + | Component | Value | Ref Range | Performed | Pathologist | | | | | At | Signature | + +-------+ + + + | LACTATE | 1.2 | mmol/L | [facility] | | | | | | LABORATORY | | | | | | SERVICES, | | | | | | CORE | | + +-------+ + + + + + | Specimen | + + | Blood - Blood | | (substance) | + + + + + | Narrative | Performed At | + + + | Reference Range: Venous blood: 0.5 - 2.2 mmol/L Critical >= | [facility] | | 4.0 mmol/L Arterial blood: 0.5 - 1.6 mmol/L Critical >= 4.0 | LABORATORY | | mmol/L | [facility] | + + + + + + + + | Performing | Address | City/State/Zipcode | Phone Number | | Organization | | | | + + + + + | [facility] | [address] | [place] [address] | | | [facility] | [address] | | | + + + + + LDH TOTAL, PLASMA (08/16/2019 12:20 PM PDT) + +---------+ + + + | Component | Value | Ref Range | Performed | Pathologist | | | | | At | Signature | + +---------+ + + + | LD TOTAL, | 416 (H) | <=250 U/L | [facility] | | | PLASMA | | | LABORATORY | | | | | | SERVICES, | | | | | | CORE | | + +---------+ + + + | LD CMNT | No Hemo | | [facility] [...] | + + + + + | [facility] [employer] | [address] | [place] [address] | | | SERVICES, CORE | [address] | | | + + + + + COMPLETE METABOLIC SET (NA,K,CL,CO2,BUN,CREAT,GLUC,CA,AST,ALT,BILI TOTAL,ALK PHOS,ALB,PROT TOTAL) (08/16/2019 12:20 PM PDT) + +---------+ + + + | Component | Value | Ref Range | Performed | Pathologist | | | | | At | Signature | + +---------+ + + + | GLUCOSE, | 243 (H) | 70 - 99 mg/dL | [facility] | | | PLASMA | | | LABORATORY | | | (LAB) | | | SERVICES, | | | | | | CORE | | + +---------+ + + + | BUN, PLASMA | 50 (H) | 6 - 20 mg/dL | [facility] | | | (LAB) | | | LABORATORY | | | | | | SERVICES, | | | | | | CORE | | + +---------+ + + + | CREATININE | 1.07 | 0.70 - 1.30 | [facility] | | | PLASMA | | mg/dL | LABORATORY | | | (LAB) | | | SERVICES, | | | | | | CORE | | + +---------+ + + + | EGFR | >60 | >60 mL/min | [facility] | | | - | | | LABORATORY | | | TURK[place] | | | SERVICES, | | | | | | CORE | | + +---------+ + + + | EGFR NON | >60 | >60 mL/min | [facility] | | | -JARRED | | | LABORATORY | | | RICAN | | | SERVICES, | | | | | | CORE | | + +---------+ + + + | SODIUM, | 139 | 136 - 145 | [facility] | | | PLASMA | | mmol/L | LABORATORY | | | (LAB) | | | SERVICES, | | | | | | CORE | | + +---------+ + + + | POTASSIUM, | 4.5 | 3.4 - 5.0 | [facility] | | | PLASMA | | mmol/L | LABORATORY | | | (LAB) | | | SERVICES, | | | | | | CORE | | + +---------+ + + + | CHLORIDE, | 110 (H) | 97 - 108 mmol/L | [facility] | | | PLASMA | | | LABORATORY | | | (LAB) | | | SERVICES, | | | | | | CORE | | + +---------+ + + + | TOTAL CO2, | 23 | 21 - 32 mmol/L | [facility] | | | PLASMA | | | LABORATORY | | | (LAB) | | | SERVICES, | | | | | | CORE | | + +---------+ + + + | CALCIUM, | 8.2 (L) | 8.6 - 10.2 | [facility] | | | PLASMA | | mg/dL | LABORATORY | | | (LAB) | | | SERVICES, | | | | | | CORE | | + +---------+ + + + | CALCIUM(ALB | 9.5 | 8.6 - 10.2 | [facility] | | | CORRECTED) | | mg/dL | LABORATORY | | | | | | SERVICES, | | | | | | CORE | | + +---------+ + + + | BILIRUBIN | 3.3 (H) | 0.3 - 1.2 mg/dL | [facility] | | | TOTAL | | | LABORATORY | | | | | | SERVICES, | | | | | | CORE | | + +---------+ + + + | TOTAL | 5.1 (L) | 6.4 - 8.2 g/dL | [facility] | | | PROTEIN, | | | LABORATORY | | | PLASMA | | | SERVICES, | | | (LAB) | | | CORE | | + +---------+ + + + | ALBUMIN, | 2.4 (L) | 3.5 - 4.7 g/dL | [facility] | | | PLASMA | | | LABORATORY | | | (LAB) | | | SERVICES, | | | | | | CORE | | + +---------+ + + + | ALK PHOS | 62 | 53 - 128 U/L | [facility] | | | | | | LABORATORY | | | | | | SERVICES, | | | | | | CORE | | + +---------+ + + + | AST(SGOT) | 518 (H) | <=41 U/L | [facility] | | | | | | LABORATORY | | | | | | SERVICES, | | | | | | CORE | | + +---------+ + + + | ALT (SGPT) | 516 (H) | <=60 U/L | [facility] | | | | | | LABORATORY | | | | | | SERVICES, | | | | | | CORE | | + +---------+ + + + | ANION GAP | 6 | 4 - 11 mmol/L | [facility] | | | | | | LABORATORY | | | | | | SERVICES, | | | | | | CORE | | + +---------+ + + + | ANION | 10 | 4 - 11 mmol/L | [facility] | | | GAP(ALB | | | LABORATORY | | | CORRECTED) | | | SERVICES, | | | | | | CORE | | + +---------+ + + + | POTASSIUM | No Hemo | | [facility] | | | CMNT | | | LABORATORY | | | | | | SERVICES, | | | | | | CORE | | + +---------+ + + + | BILI T CMNT | No Hemo | | [facility] | | | | | | LABORATORY | | | | | | SERVICES, | | | | | | CORE | | + +---------+ + + + | AST CMNT | [...] MDRD equation recommended by the National | [facility] | | Kidney Disease Education Program. Estimated [...] | + + + + + | [facility] | [address] | [place] [address] | | | SERVICES, CORE | [address] | | | + + + + + CAPILLARY BLOOD GLUCOSE (NO CHG), POC (08/16/2019 12:19 PM PDT) + +---------+ + + + | Component | Value | Ref Range | Performed | Pathologist | | | | | At | Signature | + +---------+ + + + | BLOOD | 232 (H) | 70 - 99 mg/dL | [facility] | | | GLUCOSE, | | | [facility] | | | POC | | | [facility] | | | | | | [facility] | | | | | | TESTS | | + +---------+ + + + + + | Specimen | + + | Blood | + + + + + + + | Performing | Address | City/State/Zipcode | Phone Number | | Organization | | | | + + + + + | [facility] | [address] | [place], [place] | | | [facility] | [address] | [address] | | | TESTS | | | | + + + + + CAPILLARY BLOOD GLUCOSE (NO CHG), POC (08/16/2019 11:04 AM PDT) + +---------+ + + + | Component | Value | Ref Range | Performed | Pathologist | | | | | At | Signature | + +---------+ + + + | BLOOD | 251 (H) | 70 - 99 mg/dL | [facility] - | | | GLUCOSE, | | | [facility] | | | POC | | | [facility] | | | | | | [facility] | | | | | | TESTS | | + +---------+ + + + + + | Specimen | + + | Blood | + + + + + + + | Performing | Address | City/State/Zipcode | Phone Number | | Organization | | | | + + + + + | [facility] | [address] | [place], [place] | | | [facility] | [address] | [address] | | | TESTS | | | | + + + + + BLOOD GASES, ARTERIAL - LAB (08/16/2019 9:40 AM PDT) + + + + + + | Component | Value | Ref Range | Performed | Pathologist | | | | | At | Signature | + + + + + + | FIO2 | 0.30 | | [facility] | | | ARTERIAL | | | LABORATORY | | | | | | SERVICES, | | | | | | CORE | | + + + + + + | PH ARTERIAL | 7.40 | 7.37 - 7.44 | [facility] | | | | | | LABORATORY | | | | | | SERVICES, | | | | | | CORE | | + + + + + + | PCO2 | 37 | 32 - 43 mmHg | [facility] | | | ARTERIAL | | | LABORATORY | | | | | | SERVICES, | | | | | | CORE | | + + + + + + | PO2 | 111 (H) | 72 - 104 mmHg | [facility] | | | ARTERIAL | | | LABORATORY | | | | | | SERVICES, | | | | | | CORE | | + + + + + + | HCO3 | 22 | 21 - 28 mmol/L | [facility] | | | ARTERIAL | | | LABORATORY | | | | | | SERVICES, | | | | | | CORE | | + + + + + + | TOTAL CO2 | 23 | 22 - 28 mmol/L | [facility] | | | ARTERIAL | | | LABORATORY | | | | | | SERVICES, | | | | | | CORE | | + + + + + + | BASE EXCESS | -1.7 | -2.0 - 2.0 | [facility] | | | ARTERIAL | | mmol/L | LABORATORY | | | | | | SERVICES, | | | | | | CORE | | + + + + + + | O2 SAT, | 98.3 (H) | 92.0 - 98.0 % | [facility] | | | ARTERIAL | | | LABORATORY | | | | | | SERVICES, | | | | | | CORE | | + + + + + + | PAO2/FIO2 | 370 | >300 mmHg | [facility] | | | RATIO | | | LABORATORY | | | | | | SERVICES, | | | | | | CORE | | + + + + + + | PAT TEMP | 36.4 | Degree C | [facility] | | | ARTERIAL | | | LABORATORY | | | [...] | + + + + + | [facility] | [address] | [place] [address] | | | SERVICES, CORE | [address] | | | + + + + + CAPILLARY BLOOD GLUCOSE (NO CHG), POC (08/16/2019 9:35 AM PDT) + +---------+ + + + | Component | Value | Ref Range | Performed | Pathologist | | | | | At | Signature | + +---------+ + + + | BLOOD | 221 (H) | 70 - 99 mg/dL | [facility] | | | GLUCOSE, | | | [facility] | | | POC | | | [facility] | | | | | | OF CARE | | | | | | TESTS | | + +---------+ + + + + + | Specimen | + + | Blood | + + + + + + + | Performing | Address | City/State/Zipcode | Phone Number | | Organization | | | | + + + + + | [facility] | [address] | [place], [place] | | | [facility] | [address] | [address] | | | TESTS | | | | + + + + + PRODUCT - FRESH FROZEN PLASMA (08/16/2019 9:34 AM PDT) + + + + + + | Component | Value | Ref Range | Performed | Pathologist | | | | | At | Signature | + + + + + + | PRODUCT | THAWED APHERESIS PLASMA | | [facility] | | | DESCRIPTION | | | LABORATORY | | | | | | SERVICES, | | | | | | TRANSFUSION | | | | | | MEDICINE | | + + + + + + | PRODUCT | [id number] | | [facility] | | | UNIT # | | | LABORATORY | | | | | | SERVICES, | | | | | | TRANSFUSION | | | | | | MEDICINE | | + + + + + + | UNIT ABO | A | | [facility] | | | | | | LABORATORY | | | | | | SERVICES, | | | | | | TRANSFUSION | | | | | | MEDICINE | | + + + + + + | UNIT RH | NEG | | [facility] | | | | | | LABORATORY | | | | | | SERVICES, | | | | | | TRANSFUSION | | | | | | MEDICINE | | + + + + + + | STATUS OF | Presumed Transfused | | [facility] | | | UNIT | | | LABORATORY | | | | | | SERVICES, | | | | | | TRANSFUSION | | | | | | MEDICINE | | + + + + + + | EXPIRATION | [id number] | | [facility] | | | DATE | | | LABORATORY | | | | | | SERVICES, | | | | | | TRANSFUSION | | | | | | MEDICINE | | + + + + + + | BLOOD TYPE | [id number] | | [facility] | | | BARCODE | | | LABORATORY | | | | | | SERVICES, | | | | | | TRANSFUSION | | | | | | MEDICINE | | + + + + + + | BLOOD | [id number] | | [facility] | | | PRODUCT | | | LABORATORY | | | CODE | | | SERVICES, | | | | | | TRANSFUSION | | | | | | MEDICINE | | + + + + + + + + | Specimen | + + | | + + + + + + + | Performing | Address | City/State/Zipcode | Phone Number | | Organization | | | | + + + + + | [facility] | [address] | [place] [address] | | | CLAUDIA, | [address] | | | | TRANSFUSION MEDICINE | | | | + + + + + 12 LEAD ECG (08/16/2019 9:03 AM PDT) + + + + + + | Component | Value | Ref Range | Performed | Pathologist | | | | | At | Signature | + + + + + + | VENTRICULAR | 67 | bpm | [facility] | | | RATE | | | OF | | | | | | CARDIOLOGY | | + + + + + + | ATRIAL RATE | 67 | ms | [facility] | | | | | | OF | | | | | | CARDIOLOGY | | + + + + + + | P-R | 198 | ms | [facility] | | | INTERVAL | | | OF | | | | | | CARDIOLOGY | | + + + + + + | P AXIS | 75 | deg | [facility] | | | | | | OF | | | | | | CARDIOLOGY | | + + + + + + | QRS | 118 | ms | [facility] | | | DURATION | | | OF | | | | | | CARDIOLOGY | | + + + + + + | QT | 479 | ms | [facility] | | | | | | OF | | | | | | CARDIOLOGY | | + + + + + + | QTC-BAZETT | 506 | ms | [facility] | | | | | | OF | | | | | | CARDIOLOGY | | + + + + + + | R AXIS | 52 | deg | [facility] | | | | | | OF | | | | | | CARDIOLOGY | | + + + + + + | T AXIS | 118 | deg | [facility] | | | | | | OF | | | | | | CARDIOLOGY | | + + + + + + | ECG | Sinus rhythm | | [facility] | | | IMPRESSION | | | OF | | | | | | CARDIOLOGY | | + + + + + + | ECG | Incomplete right bundle | | [facility] | | | IMPRESSION | branch block | | OF | | | | | | CARDIOLOGY | | + + + + + + | ECG | Prolonged QT interval- | | [facility] | | | IMPRESSION | ABNORMAL ECG - | | OF | | | | | | CARDIOLOGY | | + + + + + + | ECG | Electronically signed | | [facility] | | | IMPRESSION | by: ALIREZA SORIANO | | OF | | | | 08-16-2019 19:38:56 | | CARDIOLOGY | | + + [...] DEPT OF | [address] | [place], [place] | | | CARDIOLOGY | [address] | [address] | | + + + + + X-RAY ABDOMEN 1 VIEW (08/16/2019 8:44 AM PDT) + + | Specimen | + + | | + + + + + | Narrative | Performed At | + + + | EXAM: AR CHEST 1 VIEW, ABDOMEN 1 VIEW HISTORY: S/P Liver | [facility] | | Transplant evaluate for infiltration COMPARISON: August 15, | RADIOLOGY VOICE | | 2018, August 01, 2019 FINDINGS: Endotracheal tube terminates | RECOGNITION 2 | | at the ostium of the right mainstem bronchus, 2 cm downstream of the | | | mid trachea. There are 2 right IJ catheters; the smaller bore right IJ | | | catheter is directed laterally. A weighted feeding tube terminates | | | within the stomach, along the greater curvature of the fundus. A | | | transesophageal sump tube terminates along the greater curvature, with | | | tip directed towards the antrum. Multiple abdominal drains and a | | | cutaneous staple line are noted. Multiple surgical clips overlie the | | | abdomen. There is no retained needle on this examination. Within | | | the lungs, the heart is enlarged. There is engorgement of the | | | pulmonary vasculature. There is dense retrocardiac opacification and | | | abrupt termination of the left lower lobe bronchograms, favored to | | | reflect atelectasis. A small left effusion is likely present. | | | Within the abdomen, the bowel is filled with gas and stool, without | | | clear dilatation. Expected pneumoperitoneum is noted. IMPRESSION: | | | Dual right neck catheters are likely positioned within a patulous | | | IJ/SVC. If there is concern for malpositioning, recommend correlation | | | with blood gas measurements. The endotracheal tube is positioned | | | at the right mainstem ostium. Recommend retraction by 2 cm. No | | | retained needle on the visualized portions of the chest and abdomen. | | | Prepyloric positioning of the weighted feeding tube. Dense | | | retrocardiac consolidation, favored to reflect atelectasis downstream | | | of mucus plugging. Mild pulmonary edema. These results were | | | discussed with the fixed income trading vice president on 08/16/2019 10:23 AM by Ramana Hernandez MD. I have personally reviewed the images and, if | | | necessary, edited the report. I agree with the report as now | | | presented. Final signature: Ramana Hernandez MD 08/16/2019 10:25 | | | AM Preliminary: Ramana Hernandez MD Dictation initiated: Ramana Hernandez MD 08/16/2019 10:14 AM | | + + + + + | Procedure Note | + + | Service Account, Radiant Res In Interface - 08/16/2019 10:26 AM PDT EXAM: AR CHEST 1 | | VIEW, ABDOMEN 1 VIEW HISTORY: S/P Liver Transplant evaluate for infiltration | | COMPARISON: August 15, 2019, August 01, 2019 FINDINGS: Endotracheal tube terminates at | | the ostium of the right mainstem bronchus, 2 cm downstream of the mid trachea. There | | are 2 right IJ catheters; the smaller bore right IJ catheter is directed laterally. A | | weighted feeding tube terminates within the stomach, along the greater curvature of the | | fundus. A transesophageal sump tube terminates along the greater curvature, with tip | | directed towards the antrum. Multiple abdominal drains and a cutaneous staple line are | | noted. Multiple surgical clips overlie the abdomen. There is no retained needle on this | | examination. Within the lungs, the heart is enlarged. There is engorgement of the | | pulmonary vasculature. There is dense retrocardiac opacification and abrupt termination | | of the left lower lobe bronchograms, favored to reflect atelectasis. A small left | | effusion is likely present. Within the abdomen, the bowel is filled with gas and stool, | | without clear dilatation. Expected pneumoperitoneum is noted. IMPRESSION: Dual right | | neck catheters are likely positioned within a patulous IJ/SVC. If there is concern for | | malpositioning, recommend correlation with blood gas measurements. The endotracheal tube | | is positioned at the right mainstem ostium. Recommend retraction by 2 cm. No retained | | needle on the visualized portions of the chest and abdomen. Prepyloric positioning of | | the weighted feeding tube. Dense retrocardiac consolidation, favored to reflect | | atelectasis downstream of mucus plugging. Mild pulmonary edema. These results were | | discussed with the fixed income trading vice president on 08/16/2019 10:23 AM by Ramana Hernandez MD. I have | | personally reviewed the images and, if necessary, edited the report. I agree with the | | report as now presented. Final signature: Ramana Hernandez MD 08/16/2019 10:25 AM | | Preliminary: Ramana Hernandez MD Dictation initiated: Ramana Hernandez MD 08/16/2019 | | 10:14 AM | |Prepyloric positioning of the weighted feeding tube. | | | |Dense retrocardiac consolidation, favored to reflect atelectasis downstream of mucus pluggi ng. | | | |Mild pulmonary edema. | | | |These results were discussed with the fixed income trading vice president on 08/16/2019 10:23 AM by Ramana Hernandez MD. | | | |I have personally reviewed the images and, if necessary, edited the report. I agree with th e report as now presented. | | | |Final signature: Ramana Hernandez MD 08/16/2019 10:25 AM | |Preliminary: Ramana Hernandez MD | |Dictation initiated: Ramana Hernandez MD 08/16/2019 10:14 AM | + + + +---------+ + + | Performing | Address | City/State/Zipcode | Phone Number | | Organization | | | | + +---------+ + + | [facility] | | | | | VOICE RECOGNITION 2 | | | | + +---------+ + + X-RAY PORTABLE CHEST 1 VIEW (08/16/2019 8:43 AM PDT) + + | Specimen | + + | | + + + + + | Narrative | Performed At | + + + | EXAM: AR CHEST 1 VIEW, ABDOMEN 1 VIEW HISTORY: S/P Liver | [facility] | | Transplant evaluate for infiltration COMPARISON: August 15, | RADIOLOGY VOICE | | August 01, 2019 FINDINGS: Endotracheal tube terminates | RECOGNITION 2 | | at the ostium of the right mainstem bronchus, 2 cm downstream of the | | | mid trachea. There are 2 right IJ catheters; the smaller bore right IJ | | | catheter is directed laterally. A weighted feeding tube terminates | | | within the stomach, along the greater curvature of the fundus. A | | | transesophageal sump tube terminates along the greater curvature, with | | | tip directed towards the antrum. Multiple abdominal drains and a | | | cutaneous staple line are noted. Multiple surgical clips overlie the | | | abdomen. There is no retained needle on this examination. Within | | | the lungs, the heart is enlarged. There is engorgement of the | | | pulmonary vasculature. There is dense retrocardiac opacification and | | | abrupt termination of the left lower lobe bronchograms, favored to | | | reflect atelectasis. A small left effusion is likely present. | | | Within the abdomen, the bowel is filled with gas and stool, without | | | clear dilatation. Expected pneumoperitoneum is noted. IMPRESSION: | | | Dual right neck catheters are likely positioned within a patulous | | | IJ/SVC. If there is concern for malpositioning, recommend correlation | | | with blood gas measurements. The endotracheal tube is positioned | | | at the right mainstem ostium. Recommend retraction by 2 cm. No | | | retained needle on the visualized portions of the chest and abdomen. | | | Prepyloric positioning of the weighted feeding tube. Dense | | | retrocardiac consolidation, favored to reflect atelectasis downstream | | | of mucus plugging. Mild pulmonary edema. These results were | | | discussed with the fixed income trading vice president on 08/16/2019 10:23 AM by Ramana Wong | | | MD David. I have personally reviewed the images and, if | | | necessary, edited the report. I agree with the report as now | | | presented. Final signature: Ramana Hernandez MD 08/16/2019 10:25 | | | AM Preliminary: Ramana Hernandez MD Dictation initiated: Ramana Hernandez MD 08/16/2019 10:14 AM | | + + + + + | Procedure Note | + + | Service Account, [employer] Res In Interface - 08/16/2019 10:26 AM PDT EXAM: AR CHEST 1 | | VIEW, ABDOMEN 1 VIEW HISTORY: S/P Liver Transplant evaluate for infiltration | | COMPARISON: August 15, 2019, August 01, 2019 FINDINGS: Endotracheal tube terminates at | | the ostium of the right mainstem bronchus, 2 cm downstream of the mid trachea. There | | are 2 right IJ catheters; the smaller bore right IJ catheter is directed laterally. A | | weighted feeding tube terminates within the stomach, along the greater curvature of the | | fundus. A transesophageal sump tube terminates along the greater curvature, with tip | | directed towards the antrum. Multiple abdominal drains and a cutaneous staple line are | | noted. Multiple surgical clips overlie the abdomen. There is no retained needle on this | | examination. Within the lungs, the heart is enlarged. There is engorgement of the | | pulmonary vasculature. There is dense retrocardiac opacification and abrupt termination | | of the left lower lobe bronchograms, favored to reflect atelectasis. A small left | | effusion is likely present. Within the abdomen, the bowel is filled with gas and stool, | | without clear dilatation. Expected pneumoperitoneum is noted. IMPRESSION: Dual right | | neck catheters are likely positioned within a patulous IJ/SVC. If there is concern for | | malpositioning, recommend correlation with blood gas measurements. The endotracheal tube | | is positioned at the right mainstem ostium. Recommend retraction by 2 cm. No retained | | needle on the visualized portions of the chest and abdomen. Prepyloric positioning of | | the weighted feeding tube. Dense retrocardiac consolidation, favored to reflect | | atelectasis downstream of mucus plugging. Mild pulmonary edema. These results were | | discussed with the fixed income trading vice president on 08/16/2019 10:23 AM by Ramana Hernandez MD. I have | | personally reviewed the images and, if necessary, edited the report. I agree with the | | report as now presented. Final signature: Ramana Hernandez MD 08/16/2019 10:25 AM | | Preliminary: Ramana Hernandez MD Dictation initiated: Ramana Hernandez MD 08/16/2019 | | 10:14 AM | |Prepyloric positioning of the weighted feeding tube. | | | |Dense retrocardiac consolidation, favored to reflect atelectasis downstream of mucus pluggi ng. | | | |Mild pulmonary edema. | | | |These results were discussed with the fixed income trading vice president on 08/16/2019 10:23 AM by Ramana Hernandez MD. | | | |I have personally reviewed the images and, if necessary, edited the report. I agree with th e report as now presented. | | | |Final signature: Ramana Hernandez MD 08/16/2019 10:25 AM | |Preliminary: Ramana Hernandez MD | |Dictation initiated: Ramana Hernandez MD 08/16/2019 10:14 AM | + + + +---------+ + + | Performing | Address | City/State/Zipcode | Phone Number | | Organization | | | | + +---------+ + + | [facility] | | | | | VOICE RECOGNITION 2 | | | | + +---------+ + + PHOSPHORUS, PLASMA (08/16/2019 8:22 AM PDT) + +-------+ + + + | Component | Value | Ref Range | Performed | Pathologist | | | | | At | Signature | + +-------+ + + + | PHOSPHORUS, | 3.3 | 2.4 - 4.7 mg/dL | [facility] [...] [facility] | [address] | [place] [address] | | | SERVICES, CORE | [address] | | | + + + + + APTT (ACT. PART. THROMBO TIME) (08/16/2019 8:22 AM PDT) + + + + + + | Component | Value | Ref Range | Performed | Pathologist | | | | | At | Signature | + + + + + + | APTT | 52.3 (H) | 26.0 - 36.0 | [facility] | | | | | seconds | LABORATORY | | | | | | SERVICES, | | | | | | CORE | | + + + + + + + + | Specimen | + + | Blood - Blood | | (substance) | + + + + + | Narrative | Performed At | + + + | APTT values for monitoring heparin therapy may be affected by | [facility] | | specimens processed >1 hour after collection. APTT Therapeutic | LABORATORY | | Range: (75 - 120) sec Heparin | SERVICES, CORE | | levels of 0.35 - 0.7 U/mL | | + + + + + + + + | Performing | Address | City/State/Zipcode | Phone Number | | Organization | | | | + + + + + | [facility] | [address] | [place] [address] | | | SERVICES, CORE | [address] | | | + + + + + INR (08/16/2019 8:22 AM PDT) + + + + + + | Component | Value | Ref Range | Performed | Pathologist | | | | | At | Signature | + + + + + + | INR | 2.75 (H) | 0.90 - 1.20 INR | [...] + | [facility] | [address] | [place] [address] | | | SERVICES, CORE | [address] | | | + + + + + LDH TOTAL, PLASMA (08/16/2019 8:22 AM PDT) + +---------+ + + + | Component | Value | Ref Range | Performed | Pathologist | | | | | At | Signature | + +---------+ + + + | LD TOTAL, | 804 (H) | <=250 U/L | [facility] | | | PLASMA | | | LABORATORY | | | | | | SERVICES, | | | | | | CORE | | + +---------+ + + + | LD CMNT | No Hemo | | [facility] [...] + + + + + | [facility] | [address] | [place] [address] | | | SERVICES, ARTIS | [address] | | | + + + + + COMPLETE METABOLIC SET (NA,K,CL,CO2,BUN,CREAT,GLUC,CA,AST,ALT,BILI TOTAL,ALK PHOS,ALB,PROT TOTAL) (08/16/2019 8:22 AM PDT) + +---------+ + + + | Component | Value | Ref Range | Performed | Pathologist | | | | | At | Signature | + +---------+ + + + | GLUCOSE, | 257 (H) | 70 - 99 mg/dL | [facility] | | | PLASMA | | | LABORATORY | | | (LAB) | | | SERVICES, | | | | | | CORE | | + +---------+ + + + | BUN, PLASMA | 51 (H) | 6 - 20 mg/dL | [facility] | | | (LAB) | | | LABORATORY | | | | | | SERVICES, | | | | | | CORE | | + +---------+ + + + | CREATININE | 1.01 | 0.70 - 1.30 | [facility] | | | PLASMA | | mg/dL | LABORATORY | | | (LAB) | | | SERVICES, | | | | | | CORE | | + +---------+ + + + | EGFR | >60 | >60 mL/min | [facility] | | | - | | | LABORATORY | | | TURKISH | | | SERVICES, | | | | | | CORE | | + +---------+ + + + | EGFR NON | >60 | >60 mL/min | [facility] | | | -JARRED | | | LABORATORY | | | RICAN | | | SERVICES, | | | | | | CORE | | + +---------+ + + + | SODIUM, | 140 | 136 - 145 | [facility] | | | PLASMA | | mmol/L | LABORATORY | | | (LAB) | | | SERVICES, | | | | | | CORE | | + +---------+ + + + | POTASSIUM, | 3.8 | 3.4 - 5.0 | [facility] | | | PLASMA | | mmol/L | LABORATORY | | | (LAB) | | | SERVICES, | | | | | | CORE | | + +---------+ + + + | CHLORIDE, | 109 (H) | 97 - 108 mmol/L | [facility] | | | PLASMA | | | LABORATORY | | | (LAB) | | | SERVICES, | | | | | | CORE | | + +---------+ + + + | TOTAL CO2, | 23 | 21 - 32 mmol/L | [facility] | | | PLASMA | | | LABORATORY | | | (LAB) | | | SERVICES, | | | | | | CORE | | + +---------+ + + + | CALCIUM, | 8.2 (L) | 8.6 - 10.2 | [facility] | | | PLASMA | | mg/dL | LABORATORY | | | (LAB) | | | SERVICES, | | | | | | CORE | | + +---------+ + + + | CALCIUM(ALB | 9.7 | 8.6 - 10.2 | [facility] | | | CORRECTED) | | mg/dL | LABORATORY | | | | | | SERVICES, | | | | | | CORE | | + +---------+ + + + | BILIRUBIN | 6.7 (H) | 0.3 - 1.2 mg/dL | [facility] | | | TOTAL | | | LABORATORY | | | | | | SERVICES, | | | | | | CORE | | + +---------+ + + + | TOTAL | 4.8 (L) | 6.4 - 8.2 g/dL | [facility] | | | PROTEIN, | | | LABORATORY | | | PLASMA | | | SERVICES, | | | (LAB) | | | CORE | | + +---------+ + + + | ALBUMIN, | 2.1 (L) | 3.5 - 4.7 g/dL | [facility] | | | PLASMA | | | LABORATORY | | | (LAB) | | | SERVICES, | | | | | | CORE | | + +---------+ + + + | ALK PHOS | 82 | 53 - 128 U/L | [facility] | | | | | | LABORATORY | | | | | | SERVICES, | | | | | | CORE | | + +---------+ + + + | AST(SGOT) | 807 (H) | <=41 U/L | [facility] | | | | | | LABORATORY | | | | | | SERVICES, | | | | | | CORE | | + +---------+ + + + | ALT (SGPT) | 627 (H) | <=60 U/L | [facility] | | | | | | LABORATORY | | | | | | SERVICES, | | | | | | CORE | | + +---------+ + + + | ANION GAP | 8 | 4 - 11 mmol/L | [facility] | | | | | | LABORATORY | | | | | | SERVICES, | | | | | | CORE | | + +---------+ + + + | ANION | 12 (H) | 4 - 11 mmol/L | [facility] | | | GAP(ALB | | | LABORATORY | | | CORRECTED) | | | SERVICES, | | | | | | CORE | | + +---------+ + + + | POTASSIUM | No Hemo | | [facility] | | | CMNT | | | LABORATORY | | | | | | SERVICES, | | | | | | CORE | | + +---------+ + + + | BILI T CMNT | No Hemo | | [facility] | | | | | | LABORATORY | | | | | | SERVICES, | | | | | | CORE | | + +---------+ + + + | AST CMNT | [...] MDRD equation recommended by the National | [facility] | | Kidney Disease Education Program. Estimated [...] | + + + + + | [facility] | [address] | [place] [address] | | | SERVICES, CORE | [address] | | | + + + + + FIBRINOGEN (08/16/2019 8:22 AM PDT) + +---------+ + + + | Component | Value | Ref Range | Performed | Pathologist | | | | | At | Signature | + +---------+ + + + | FIBRINOGEN | 132 (L) | 150 - 450 mg/dL | [facility] | | | LEVEL | | | LABORATORY | | | [...] | + + + + + | [facility] | [address] | [place] [address] | | | SERVICES, CORE | [address] | | | + + + + + AMYLASE, PLASMA (08/16/2019 8:22 AM PDT) + +--------+ + + + | Component | Value | Ref Range | Performed | Pathologist | | | | | At | Signature | + +--------+ + + + | AMYLASE,EZEQUIEL | 24 (L) | 25 - 115 U/L | [facility] | | | SMA | | | LABORATORY | | | | | | SERVICES, | | | | | | CORE | | + +--------+ + + + + + | Specimen | + + | Blood - Blood | | (substance) | + + + + + + + | Performing | Address | City/State/Zipcode | Phone Number | | Organization | | | | + + + + + | [facility] | [address] | [place] [address] | | | SERVICES, CORE | [address] | | | + + + + + MAGNESIUM, PLASMA (08/16/2019 8:22 AM PDT) + +-------+ + + + | Component | Value | Ref Range | Performed | Pathologist | | | | | At | Signature | + +-------+ + + + | MAGNESIUM,P | 2.6 | 1.6 - 2.6 mg/dL | [facility] [...] + | [facility] | [address] | [place] [address] | | | SERVICES, CORE | [address] | | | + + + + + CBC AND AUTO DIFF (08/16/2019 8:21 AM PDT) + + + + + + | Component | Value | Ref Range | Performed | Pathologist | | | | | At | Signature | + + + + + + | WHITE CELL | 13.53 (H) | 3.50 - 10.80 | [facility] | | | COUNT | | K/cu mm | LABORATORY | | | | | | SERVICES, | | | | | | CORE | | + + + + + + | RED CELL | 2.99 (L) | 4.50 - 6.00 | [facility] | | | COUNT | | M/cu mm | LABORATORY | | | | | | SERVICES, | | | | | | CORE | | + + + + + + | HEMOGLOBIN | 9.6 (L) | 13.5 - 17.5 | [facility] | | | | | g/dL | LABORATORY | | | | | | SERVICES, | | | | | | CORE | | + + + + + + | HEMATOCRIT | 29.2 (L) | 41.0 - 53.0 % | [facility] | | | | | | LABORATORY | | | | | | SERVICES, | | | | | | CORE | | + + + + + + | MCV | 97.7 | 80.0 - 100.0 fL | [facility] | | | | | | LABORATORY | | | | | | SERVICES, | | | | | | CORE | | + + + + + + | MCHC | 32.9 | 32.0 - 36.0 | [facility] | | | | | g/dL | LABORATORY | | | | | | SERVICES, | | | | | | CORE | | + + + + + + | RDW SD | 63.0 (H) | 35.1 - 46.3 fL | [facility] | | | | | | LABORATORY | | | | | | SERVICES, | | | | | | CORE | | + + + + + + | PLATELET | 79 (L) | 150 - 400 K/cu | [facility] | | | COUNT | | mm | LABORATORY | | | | | | SERVICES, | | | | | | CORE | | + + + + + + | MPV | 11.0 | 9.7 - 12.3 fL | [facility] | | | | | | LABORATORY | | | | | | SERVICES, | | | | | | CORE | | + + + + + + | NRBC% | 0.1 | 0.0 - 0.3 % | [facility] | | | | | | LABORATORY | | | | | | SERVICES, | | | | | | CORE | | + + + + + + | NRBC# | 0.02 | 0.00 - 0.02 | [facility] | | | | | K/cu mm | LABORATORY | | | | | | SERVICES, | | | | | | CORE | | + + + + + + | NEUTROPHIL | 86.6 (H) | 50.0 - 70.0 % | [facility] | | | % | | | LABORATORY | | | | | | SERVICES, | | | | | | CORE | | + + + + + + | LYMPHOCYTE | 5.2 (L) | 18.0 - 42.0 % | [facility] | | | % | | | LABORATORY | | | | | | SERVICES, | | | | | | CORE | | + + + + + + | MONOCYTE % | 7.2 | 3.5 - 9.0 % | [facility] | | | | | | LABORATORY | | | | | | SERVICES, | | | | | | CORE | | + + + + + + | EOS % | 0.0 (L) | 1.0 - 3.0 % | [facility] | | | | | | LABORATORY | | | | | | SERVICES, | | | | | | CORE | | + + + + + + | BASO % | 0.2 | 0.0 - 2.0 % | [facility] | | | | | | LABORATORY | | | | | | SERVICES, | | | | | | CORE | | + + + + + + | IG% | 0.8 | 0.0 - 1.0 % | [facility] | | | | | | LABORATORY | | | | | | SERVICES, | | | | | | CORE | | + + + + + + | NEUTROPHIL | 11.71 (H) | 1.80 - 7.70 | [facility] | | | # | | K/cu mm | LABORATORY | | | | | | SERVICES, | | | | | | CORE | | + + + + + + | LYMPHOCYTE | 0.70 (L) | 1.00 - 4.80 | [facility] | | | # | | K/cu mm | LABORATORY | | | | | | SERVICES, | | | | | | CORE | | + + + + + + | MONOCYTE # | 0.98 (H) | 0.10 - 0.90 | [facility] | | | | | K/cu mm | LABORATORY | | | | | | SERVICES, | | | | | | CORE | | + + + + + + | EOS # | 0.00 | 0.00 - 0.50 | [facility] | [...] + + + + | IG# | 0.11 (H) | 0.00 - 0.10 | [facility] | [...] + | [facility] | [address] | [place] [address] | | | SERVICES, CORE | [address] | | | + + + + + LACTATE (08/16/2019 8:21 AM PDT) + +-------+ + + + | Component | Value | Ref Range | Performed | Pathologist | | | | | At | Signature | + +-------+ + + + | LACTATE | 2.2 | mmol/L | [facility] | | | | | | LABORATORY | | | | | | SERVICES, | | | | | | CORE | | + +-------+ + + + + + | Specimen | + + | Blood - Blood | | (substance) | + + + + + | Narrative | Performed At | + + + | Reference Range: Venous blood: 0.5 - 2.2 mmol/L Critical >= | [facility] | | 4.0 mmol/L Arterial blood: 0.5 - 1.6 mmol/L Critical >= 4.0 | LABORATORY | | mmol/L | SERVICES, CORE | + + + + + + + + | Performing | Address | City/State/Zipcode | Phone Number | | Organization | | | | + + + + + | [facility] | [address] | [place] [address] | | | SERVICES, CORE | [address] | | | + + + + + CAPILLARY BLOOD GLUCOSE (NO CHG), POC (08/16/2019 8:17 AM PDT) + +---------+ + + + | Component | Value | Ref Range | Performed | Pathologist | | | | | At | Signature | + +---------+ + + + | BLOOD | 257 (H) | 70 - 99 mg/dL | [facility] - | | | GLUCOSE, | | | [facility] | | | POC | | | [facility] | | | | | | OF CARE | | | | | | TESTS | | + +---------+ + + + + + | Specimen | + + | Blood | + + + + + + + | Performing | Address | City/State/Zipcode | Phone Number | | Organization | | | | + + + + + | [facility] | [address] | [place], [place] | | | [facility] | [address] | [address] | | | TESTS | | | | + + + + + ABG-CASEY ABL, POC (08/16/2019 7:08 AM PDT) + + + + + + | Component | Value | Ref Range | Performed | Pathologist | | | | | At | Signature | + + + + + + | PH | 7.33 (L) | 7.37 - 7.44 | [facility] - | | | ARTERIAL, | | | [facility] | | | POC | | | [facility] | | | | | | OF CARE | | | | | | TESTS | | + + + + + + | PO2 | 97 | 72 - 104 mmHg | [facility] - | | | ARTERIAL, | | | [facility] | | | POC | | | [facility] | | | | | | OF CARE | | | | | | TESTS | | + + + + + + | PCO2 | 39 | 32 - 43 mmHg | [facility] - | | | ARTERIAL, | | | [facility] | | | POC | | | [facility] | | | | | | OF CARE | | | | | | TESTS | | + + + + + + | TOTAL | 9.3 (L) | 13.5 - 17.5 | [facility] - | | | HEMOGLOBIN, | | g/dL | [facility] | | | POC | | | [facility] | | | | | | OF CARE | | | | | | TESTS | | + + + + + + | O2 SAT | 98.0 | 92.0 - 98.0 % | [facility] - | | | ARTERIAL, | | | [facility] | | | POC | | | [facility] | | | | | | OF CARE | | | | | | TESTS | | + + + + + + | OXYHEMOGLOB | 93.9 (L) | 94.0 - 100 % | [facility] - | | | IN, POC | | | [facility] | | | | | | [facility] | | | | | | OF CARE | | | | | | TESTS | | + + + + + + | HEMATOCRIT, | 28.4 (L) | 41.0 - 53.0 % | [facility] - | | | POC | | | [facility] | | | | | | [facility] | | | | | | OF CARE | | | | | | TESTS | | + + + + + + | POTASSIUM, | 3.7 | 3.4 - 5.0 | [facility] - | | | POC | | mmol/L | [facility] | | | | | | [facility] | | | | | | OF CARE | | | | | | TESTS | | + + + + + + | SODIUM, POC | 137 | 134 - 143 | [facility] - | | | | | mmol/L | [facility] | | | | | | [facility] | | | | | | OF CARE | | | | | | TESTS | | + + + + + + | GLENN | 1.20 | 1.14 - 1.32 | [facility] - | | | IONIZED CA, | | mmol/L | [facility] | | | POC | | | [facility] | | | | | | OF CARE | | | | | | TESTS | | + + + + + + | CHLORIDE, | 107 | 97 - 108 mmol/L | [facility] - | | | POC | | | [facility] | | | | | | [facility] | | | | | | OF CARE | | | | | | TESTS | | + + + + + + | GLUCOSE, | 275 (H) | 70 - 99 mg/dL | [facility] - | | | POC | | | [facility] | | | | | | [facility] | | | | | | OF CARE | | | | | | TESTS | | + + + + + + | HCO3 | 20.4 (L) | 21 - 28 mmol/L | [facility] - | | | ARTERIAL, | | | [facility] | | | POC | | | [facility] | | | | | | OF CARE | | | | | | TESTS | | + + + + + + | BASE EXCESS | -5.6 | | [facility] - | | | ARTERIAL, | | | [facility] | | | POC | | | [facility] | | | | | | OF CARE | | | | | | TESTS | | + + + + + + | LACTATE | 2.8 (H) | 0.5 - 1.6 | [facility] - | | | ARTERIAL, | | mmol/L | [facility] | | | POC | | | [facility] | | | | | | OF CARE | | | | | | TESTS | | + + + + + + | METHEMOGLOB | 1.7 | 0.0 - 1.9 % | [facility] - | | | IN, POC | | | [facility] | | | | | | [facility] | | | | | | OF CARE | | | | | | TESTS | | + + + + + + | PAT TEMP | 37.0 | | [facility] - | | | ART, POC | | | [facility] | | | | | | [facility] | | | | | | OF CARE | | | | | | TESTS | | + + + + + + + + | Specimen | + + | Blood - Blood | | (substance) | + + + + + + + | Performing | Address | City/State/Zipcode | Phone Number | | Organization | | | | + + + + + | [facility] | [address] | [place], [place] | | | [facility] | [facility] | [address] | | | TESTS | | | | + + + + + ABG-CASEY SAHA POC (08/16/2019 6:32 AM PDT) + + + + + + | Component | Value | Ref Range | Performed | Pathologist | | | | | At | Signature | + + + + + + | PH | 7.30 (L) | 7.37 - 7.44 | [facility] - | | | ARTERIAL, | | | [facility] | | | POC | | | [facility] | | | | | | OF CARE | | | | | | TESTS | | + + + + + + | PO2 | 133 (H) | 72 - 104 mmHg | [facility] - | | | ARTERIAL, | | | [facility] | | | POC | | | [facility] | | | | | | OF CARE | | | | | | TESTS | | + + + + + + | PCO2 | 41 | 32 - 43 mmHg | [facility] - | | | ARTERIAL, | | | [facility] | | | POC | | | [facility] | | | | | | OF CARE | | | | | | TESTS | | + + + + + + | TOTAL | 9.9 (L) | 13.5 - 17.5 | [facility] - | | | HEMOGLOBIN, | | g/dL | [facility] | | | POC | | | [facility] | | | | | | OF CARE | | | | | | TESTS | | + + + + + + | O2 SAT | 99.1 (H) | 92.0 - 98.0 % | [facility] - | | | ARTERIAL, | | | [facility] | | | POC | | | [facility] | | | | | | OF CARE | | | | | | TESTS | | + + + + + + | OXYHEMOGLOB | 95.3 | 94.0 - 100 % | [facility] - | | | IN, POC | | | [facility] | | | | | | [facility] | | | | | | OF CARE | | | | | | TESTS | | + + + + + + | HEMATOCRIT, | 30.3 (L) | 41.0 - 53.0 % | [facility] - | | | POC | | | [facility] | | | | | | [facility] | | | | | | OF CARE | | | | | | TESTS | | + + + + + + | POTASSIUM, | 3.7 | 3.4 - 5.0 | [facility] - | | | POC | | mmol/L | [facility] | | | | | | [facility] | | | | | | OF CARE | | | | | | TESTS | | + + + + + + | SODIUM, POC | 137 | 134 - 143 | [facility] - | | | | | mmol/L | [facility] | | | | | | [facility] | | | | | | OF CARE | | | | | | TESTS | | + + + + + + | GLENN | 1.21 | 1.14 - 1.32 | [facility] - | | | IONIZED CA, | | mmol/L | [facility] | | | POC | | | [facility] | | | | | | OF CARE | | | | | | TESTS | | + + + + + + | CHLORIDE, | 107 | 97 - 108 mmol/L | [facility] - | | | POC | | | [facility] | | | | | | [facility] | | | | | | OF CARE | | | | | | TESTS | | + + + + + + | GLUCOSE, | 303 (H) | 70 - 99 mg/dL | [facility] - | | | POC | | | [facility] | | | | | | [facility] | | | | | | OF CARE | | | | | | TESTS | | + + + + + + | HCO3 | 20.0 (L) | 21 - 28 mmol/L | [facility] - | | | ARTERIAL, | | | [facility] | | | POC | | | [facility] | | | | | | OF CARE | | | | | | TESTS | | + + + + + + | BASE EXCESS | -6.5 | | [facility] - | | | ARTERIAL, | | | [facility] | | | POC | | | [facility] | | | | | | OF CARE | | | | | | TESTS | | + + + + + + | LACTATE | 3.2 (H) | 0.5 - 1.6 | [facility] - | | | ARTERIAL, | | mmol/L | [facility] | | | POC | | | [facility] | | | | | | OF CARE | | | | | | TESTS | | + + + + + + | METHEMOGLOB | 1.6 | 0.0 - 1.9 % | [facility] - | | | IN, POC | | | [facility] | | | | | | [facility] | | | | | | OF CARE | | | | | | TESTS | | + + + + + + | PAT TEMP | 37.0 | | [facility] - | | | ART, POC | | | [facility] | | | | | | [facility] | | | | | | OF CARE | | | | | | TESTS | | + + + + + + + + | Specimen | + + | Blood - Blood | | (substance) | + + + + + + + | Performing | Address | City/State/Zipcode | Phone Number | | Organization | | | | + + + + + | [facility] | [address] | [place], [place] | | | [facility] | [address] | [address] | | | TESTS | | | | + + + + + ABG-FULL ABL, POC (08/16/2019 6:02 AM PDT) + + + + + + | Component | Value | Ref Range | Performed | Pathologist | | | | | At | Signature | + + + + + + | PH | 7.27 (L) | 7.37 - 7.44 | [facility] - | | | ARTERIAL, | | | [facility] | | | POC | | | [facility] | | | | | | OF CARE | | | | | | TESTS | | + + + + + + | PO2 | 129 (H) | 72 - 104 mmHg | [facility] - | | | ARTERIAL, | | | [facility] | | | POC | | | [facility] | | | | | | OF CARE | | | | | | TESTS | | + + + + + + | PCO2 | 42 | 32 - 43 mmHg | [facility] - | | | ARTERIAL, | | | [facility] | | | POC | | | [facility] | | | | | | OF CARE | | | | | | TESTS | | + + + + + + | TOTAL | 10.6 (L) | 13.5 - 17.5 | [facility] - | | | HEMOGLOBIN, | | g/dL | [facility] | | | POC | | | [facility] | | | | | | OF CARE | | | | | | TESTS | | + + + + + + | O2 SAT | 98.9 (H) | 92.0 - 98.0 % | [facility] - | | | ARTERIAL, | | | [facility] | | | POC | | | [facility] | | | | | | OF CARE | | | | | | TESTS | | + + + + + + | OXYHEMOGLOB | 95.2 | 94.0 - 100 % | [facility] - | | | IN, POC | | | [facility] | | | | | | [facility] | | | | | | OF CARE | | | | | | TESTS | | + + + + + + | HEMATOCRIT, | 32.4 (L) | 41.0 - 53.0 % | [facility] - | | | POC | | | [facility] | | | | | | [facility] | | | | | | OF CARE | | | | | | TESTS | | + + + + + + | POTASSIUM, | 3.8 | 3.4 - 5.0 | [facility] - | | | POC | | mmol/L | [facility] | | | | | | [facility] | | | | | | OF CARE | | | | | | TESTS | | + + + + + + | SODIUM, POC | 135 | 134 - 143 | [facility] - | | | | | mmol/L | [facility] | | | | | | [facility] | | | | | | OF CARE | | | | | | TESTS | | + + + + + + | GLENN | 1.24 | 1.14 - 1.32 | [facility] - | | | IONIZED CA, | | mmol/L | [facility] | | | POC | | | [facility] | | | | | | OF CARE | | | | | | TESTS | | + + + + + + | CHLORIDE, | 107 | 97 - 108 mmol/L | [facility] - | | | POC | | | [facility] | | | | | | [facility] | | | | | | OF CARE | | | | | | TESTS | | + + + + + + | GLUCOSE, | 322 (H) | 70 - 99 mg/dL | [facility] - | | | POC | | | [facility] | | | | | | [facility] | | | | | | OF CARE | | | | | | TESTS | | + + + + + + | HCO3 | 19.2 (L) | 21 - 28 mmol/L | [facility] - | | | ARTERIAL, | | | [facility] | | | POC | | | [facility] | | | | | | OF CARE | | | | | | TESTS | | + + + + + + | BASE EXCESS | -7.7 | | [facility] - | | | ARTERIAL, | | | [facility] | | | POC | | | [facility] | | | | | | OF CARE | | | | | | TESTS | | + + + + + + | LACTATE | 3.5 (H) | 0.5 - 1.6 | [facility] - | | | ARTERIAL, | | mmol/L | [facility] | | | POC | | | [facility] | | | | | | OF CARE | | | | | | TESTS | | + + + + + + | METHEMOGLOB | 1.7 | 0.0 - 1.9 % | [facility] - | | | IN, POC | | | [facility] | | | | | | [facility] | | | | | | OF CARE | | | | | | TESTS | | + + + + + + | PAT TEMP | 37.0 | | [facility] - | | | ART, POC | | | [facility] | | | | | | [facility] | | | | | | OF CARE | | | | | | TESTS | | + + + + + + + + | Specimen | + + | Blood - Blood | | (substance) | + + + + + + + | Performing | Address | City/State/Zipcode | Phone Number | | Organization | | | | + + + + + | [facility] | [address] | [place], [place] | | | [facility] | [address] | [address] | | | TESTS | | | | + + + + + ABG-FULL MAUREEN SAHA (08/16/2019 5:39 AM PDT) + + + + + + | Component | Value | Ref Range | Performed | Pathologist | | | | | At | Signature | + + + + + + | PH | 7.22 (L) | 7.37 - 7.44 | [facility] - | | | ARTERIAL, | | | [facility] | | | POC | | | [facility] | | | | | | OF CARE | | | | | | TESTS | | + + + + + + | PO2 | 154 (H) | 72 - 104 mmHg | [facility] - | | | ARTERIAL, | | | [facility] | | | POC | | | [facility] | | | | | | OF CARE | | | | | | TESTS | | + + + + + + | PCO2 | 46 (H) | 32 - 43 mmHg | [facility] - | | | ARTERIAL, | | | [facility] | | | POC | | | [facility] | | | | | | OF CARE | | | | | | TESTS | | + + + + + + | TOTAL | 10.6 (L) | 13.5 - 17.5 | [facility] - | | | HEMOGLOBIN, | | g/dL | [facility] | | | POC | | | [facility] | | | | | | OF CARE | | | | | | TESTS | | + + + + + + | O2 SAT | 99.2 (H) | 92.0 - 98.0 % | [facility] - | | | ARTERIAL, | | | [facility] | | | POC | | | [facility] | | | | | | OF CARE | | | | | | TESTS | | + + + + + + | OXYHEMOGLOB | 95.8 | 94.0 - 100 % | [facility] - | | | IN, POC | | | [facility] | | | | | | [facility] | | | | | | OF CARE | | | | | | TESTS | | + + + + + + | HEMATOCRIT, | 32.4 (L) | 41.0 - 53.0 % | [facility] - | | | POC | | | [facility] | | | | | | [facility] | | | | | | OF CARE | | | | | | TESTS | | + + + + + + | POTASSIUM, | 3.9 | 3.4 - 5.0 | [facility] - | | | POC | | mmol/L | [facility] | | | | | | [facility] | | | | | | OF CARE | | | | | | TESTS | | + + + + + + | SODIUM, POC | 136 | 134 - 143 | [facility] - | | | | | mmol/L | [facility] | | | | | | [facility] | | | | | | OF CARE | | | | | | TESTS | | + + + + + + | GLENN | 1.24 | 1.14 - 1.32 | [facility] - | | | IONIZED CA, | | mmol/L | [facility] | | | POC | | | [facility] | | | | | | OF CARE | | | | | | TESTS | | + + + + + + | CHLORIDE, | 107 | 97 - 108 mmol/L | [facility] - | | | POC | | | [facility] | | | | | | [facility] | | | | | | OF CARE | | | | | | TESTS | | + + + + + + | GLUCOSE, | 343 (H) | 70 - 99 mg/dL | [facility] - | | | POC | | | [facility] | | | | | | [facility] | | | | | | OF CARE | | | | | | TESTS | | + + + + + + | HCO3 | 18.9 (L) | 21 - 28 mmol/L | [facility] - | | | ARTERIAL, | | | [facility] | | | POC | | | [facility] | | | | | | OF CARE | | | | | | TESTS | | + + + + + + | BASE EXCESS | -8.8 | | [facility] - | | | ARTERIAL, | | | [facility] | | | POC | | | [facility] | | | | | | OF CARE | | | | | | TESTS | | + + + + + + | LACTATE | 3.9 (H) | 0.5 - 1.6 | [facility] - | | | ARTERIAL, | | mmol/L | [facility] | | | POC | | | [facility] | | | | | | OF CARE | | | | | | TESTS | | + + + + + + | METHEMOGLOB | 1.6 | 0.0 - 1.9 % | [facility] - | | | IN, POC | | | [facility] | | | | | | [facility] | | | | | | OF CARE | | | | | | TESTS | | + + + + + + | PAT TEMP | 37.0 | | [facility] - | | | ART, POC | | | [facility] | | | | | | [facility] | | | | | | OF CARE | | | | | | TESTS | | + + + + + + + + | Specimen | + + | Blood - Blood | | (substance) | + + + + + + + | Performing | Address | City/State/Zipcode | Phone Number | | Organization | | | | + + + + + | [facility] | [address] | [place], [place] | | | [facility] | [address] | [address] | | | TESTS | | | | + + + + + ABG-FULL ABL, POC (08/16/2019 5:21 AM PDT) + + + + + + | Component | Value | Ref Range | Performed | Pathologist | | | | | At | Signature | + + + + + + | PH | 7.19 (L) | 7.37 - 7.44 | [facility] | | | ARTERIAL, | | | [facility] | | | POC | | | [facility] | | | | | | OF CARE | | | | | | TESTS | | + + + + + + | PO2 | 156 (H) | 72 - 104 mmHg | [facility] - | | | ARTERIAL, | | | [facility] | | | POC | | | [facility] | | | | | | OF CARE | | | | | | TESTS | | + + + + + + | PCO2 | 50 (H) | 32 - 43 mmHg | [facility] - | | | ARTERIAL, | | | [facility] | | | POC | | | [facility] | | | | | | OF CARE | | | | | | TESTS | | + + + + + + | TOTAL | 9.6 (L) | 13.5 - 17.5 | [facility] - | | | HEMOGLOBIN, | | g/dL | [facility] | | | POC | | | [facility] | | | | | | OF CARE | | | | | | TESTS | | + + + + + + | O2 SAT | 99.2 (H) | 92.0 - 98.0 % | [facility] - | | | ARTERIAL, | | | [facility] | | | POC | | | [facility] | | | | | | OF CARE | | | | | | TESTS | | + + + + + + | OXYHEMOGLOB | 95.5 | 94.0 - 100 % | [facility] - | | | IN, POC | | | [facility] | | | | | | [facility] | | | | | | OF CARE | | | | | | TESTS | | + + + + + + | HEMATOCRIT, | 29.4 (L) | 41.0 - 53.0 % | [facility] - | | | POC | | | [facility] | | | | | | [facility] | | | | | | OF CARE | | | | | | TESTS | | + + + + + + | POTASSIUM, | 4.0 | 3.4 - 5.0 | [facility] - | | | POC | | mmol/L | [facility] | | | | | | [facility] | | | | | | OF CARE | | | | | | TESTS | | + + + + + + | SODIUM, POC | 136 | 134 - 143 | [facility] - | | | | | mmol/L | [facility] | | | | | | [facility] | | | | | | OF CARE | | | | | | TESTS | | + + + + + + | GLENN | 1.24 | 1.14 - 1.32 | [facility] - | | | IONIZED CA, | | mmol/L | [facility] | | | POC | | | [facility] | | | | | | OF CARE | | | | | | TESTS | | + + + + + + | CHLORIDE, | 107 | 97 - 108 mmol/L | [facility] - | | | POC | | | [facility] | | | | | | [facility] | | | | | | OF CARE | | | | | | TESTS | | + + + + + + | GLUCOSE, | 357 (H) | 70 - 99 mg/dL | [facility] - | | | POC | | | [facility] | | | | | | [facility] | | | | | | OF CARE | | | | | | TESTS | | + + + + + + | HCO3 | 19.0 (L) | 21 - 28 mmol/L | [facility] - | | | ARTERIAL, | | | [facility] | | | POC | | | [facility] | | | | | | OF CARE | | | | | | TESTS | | + + + + + + | BASE EXCESS | -9.3 | | [facility] - | | | ARTERIAL, | | | [facility] | | | POC | | | [facility] | | | | | | OF CARE | | | | | | TESTS | | + + + + + + | LACTATE | 4.4 (AA) | 0.5 - 1.6 | [facility] - | | | ARTERIAL, | | mmol/L | [facility] | | | POC | | | [facility] | | | | | | OF CARE | | | | | | TESTS | | + + + + + + | METHEMOGLOB | 1.6 | 0.0 - 1.9 % | [facility] - | | | IN, POC | | | [facility] | | | | | | [facility] | | | | | | OF CARE | | | | | | TESTS | | + + + + + + | PAT TEMP | 37.0 | | [facility] - | | | ART, POC | | | [facility] | | | | | | [facility] | | | | | | OF CARE | | | | | | TESTS | | + + + + + + + + | Specimen | + + | Blood - Blood | | (substance) | + + + + + + + | Performing | Address | City/State/Zipcode | Phone Number | | Organization | | | | + + + + + | [facility] | [address] | [place], [place] | | | [facility] | [address] | [address] | | | TESTS | | | | + + + + + ABCipriano-MAUREEN BLAS (08/16/2019 4:39 AM PDT) + + + + + + | Component | Value | Ref Range | Performed | Pathologist | | | | | At | Signature | + + + + + + | PH | 7.24 (L) | 7.37 - 7.44 | [facility] | | | ART[facility], | | | [facility] | | | POC | | | [facility] | | | | | | OF CARE | | | | | | TESTS | | + + + + + + | PO2 | 147 (H) | 72 - 104 mmHg | [facility] | | | ARTERIAL, | | | [facility] | | | POC | | | [facility] | | | | | | OF CARE | | | | | | TESTS | | + + + + + + | PCO2 | 42 | 32 - 43 mmHg | [facility] - | | | ARTERIAL, | | | [facility] | | | POC | | | [facility] | | | | | | OF CARE | | | | | | TESTS | | + + + + + + | TOTAL | 6.7 (L) | 13.5 - 17.5 | [facility] - | | | HEMOGLOBIN, | | g/dL | [facility] | | | POC | | | [facility] | | | | | | OF CARE | | | | | | TESTS | | + + + + + + | O2 SAT | 99.4 (H) | 92.0 - 98.0 % | [facility] - | | | ARTERIAL, | | | [facility] | | | POC | | | [facility] | | | | | | OF CARE | | | | | | TESTS | | + + + + + + | OXYHEMOGLOB | 94.8 | 94.0 - 100 % | [facility] - | | | IN, POC | | | [facility] | | | | | | [facility] | | | | | | OF CARE | | | | | | TESTS | | + + + + + + | HEMATOCRIT, | 20.6 (L) | 41.0 - 53.0 % | [facility] | | | POC | | | [facility] | | | | | | [facility] | | | | | | OF CARE | | | | | | TESTS | | + + + + + + | POTASSIUM, | 3.6 | 3.4 - 5.0 | [facility] - | | | POC | | mmol/L | [facility] | | | | | | [facility] | | | | | | OF CARE | | | | | | TESTS | | + + + + + + | SODIUM, POC | 135 | 134 - 143 | [facility] - | | | | | mmol/L | [facility] | | | | | | [facility] | | | | | | OF CARE | | | | | | TESTS | | + + + + + + | GLENN | 1.21 | 1.14 - 1.32 | [facility] - | | | IONIZED CA, | | mmol/L | [facility] | | | POC | | | [facility] | | | | | | OF CARE | | | | | | TESTS | | + + + + + + | CHLORIDE, | 105 | 97 - 108 mmol/L | [facility] - | | | POC | | | [facility] | | | | | | [facility] | | | | | | OF CARE | | | | | | TESTS | | + + + + + + | GLUCOSE, | 400 (H) | 70 - 99 mg/dL | [facility] - | | | POC | | | [facility] | | | | | | [facility] | | | | | | OF CARE | | | | | | TESTS | | + + + + + + | HCO3 | 18.3 (L) | 21 - 28 mmol/L | [facility] - | | | [facility], | | | [facility] | | | POC | | | [facility] | | | | | | OF CARE | | | | | | TESTS | | + + + + + + | BASE EXCESS | -9.0 | | [facility] - | | | [facility], | | | [facility] | | | POC | | | [facility] | | | | | | OF CARE | | | | | | TESTS | | + + + + + + | LACTATE | 4.8 (AA) | 0.5 - 1.6 | [facility] - | | | [facility], | | mmol/L | [facility] | | | POC | | | [facility] | | | | | | OF CARE | | | | | | TESTS | | + + + + + + | METHEMOGLOB | 2.1 (H) | 0.0 - 1.9 % | [facility] - | | | IN, POC | | | [facility] | | | | | | [facility] | | | | | | OF CARE | | | | | | TESTS | | + + + + + + | PAT TEMP | 37.0 | | [facility] - | | | ART, POC | | | [facility] | | | | | | [facility] | | | | | | OF CARE | | | | | | TESTS | | + + + + + + + + | Specimen | + + | Blood - Blood | | (substance) | + + + + + + + | Performing | Address | City/State/Zipcode | Phone Number | | Organization | | | | + + + + + | [facility] | [address] | [place], [place] | | | [facility] | [address] | [address] | | | TESTS | | | | + + + + + ABG-FULL ABL, POC (08/16/2019 4:24 AM PDT) + + + + + + | Component | Value | Ref Range | Performed | Pathologist | | | | | At | Signature | + + + + + + | PH | 7.31 (L) | 7.37 - 7.44 | [facility] | | | [facility], | | | [facility] | | | POC | | | [facility] | | | | | | OF CARE | | | | | | TESTS | | + + + + + + | PO2 | 127 (H) | 72 - 104 mmHg | [facility] | | | [facility], | | | [facility] | | | POC | | | [facility] | | | | | | OF CARE | | | | | | TESTS | | + + + + + + | PCO2 | 37 | 32 - 43 mmHg | [facility] - | | | [facility], | | | [facility] | | | POC | | | [facility] | | | | | | OF CARE | | | | | | TESTS | | + + + + + + | TOTAL | 6.9 (L) | 13.5 - 17.5 | [facility] - | | | HEMOGLOBIN, | | g/dL | [facility] | | | POC | | | [facility] | | | | | | OF CARE | | | | | | TESTS | | + + + + + + | O2 SAT | 99.3 (H) | 92.0 - 98.0 % | [facility] | | | [facility], | | | [facility] | | | POC | | | [facility] | | | | | | OF CARE | | | | | | TESTS | | + + + + + + | OXYHEMOGLOB | 95.2 | 94.0 - 100 % | [facility] - | | | IN, POC | | | [facility] | | | | | | [facility] | | | | | | OF CARE | | | | | | TESTS | | + + + + + + | HEMATOCRIT, | 21.2 (L) | 41.0 - 53.0 % | [facility] - | | | POC | | | [facility] | | | | | | [facility] | | | | | | OF CARE | | | | | | TESTS | | + + + + + + | POTASSIUM, | 3.5 | 3.4 - 5.0 | [facility] - | | | POC | | mmol/L | [facility] | | | | | | [facility] | | | | | | OF CARE | | | | | | TESTS | | + + + + + + | SODIUM, POC | 135 | 134 - 143 | [facility] - | | | | | mmol/L | [facility] | | | | | | [facility] | | | | | | OF CARE | | | | | | TESTS | | + + + + + + | GLENN | 1.17 | 1.14 - 1.32 | [facility] - | | | IONIZED CA, | | mmol/L | [facility] | | | POC | | | [facility] | | | | | | OF CARE | | | | | | TESTS | | + + + + + + | CHLORIDE, | 104 | 97 - 108 mmol/L | [facility] - | | | POC | | | [facility] | | | | | | [facility] | | | | | | OF CARE | | | | | | TESTS | | + + + + + + | GLUCOSE, | 433 (H) | 70 - 99 mg/dL | [facility] | | | POC | | | [facility] | | | | | | [facility] | | | | | | OF CARE | | | | | | TESTS | | + + + + + + | HCO3 | 18.5 (L) | 21 - 28 mmol/L | [facility] - | | | [facility], | | | [facility] | | | POC | | | [facility] | | | | | | OF CARE | | | | | | TESTS | | + + + + + + | BASE EXCESS | -7.8 | | [facility] | | | [facility], | | | [facility] | | | POC | | | [facility] | | | | | | OF CARE | | | | | | TESTS | | + + + + + + | LACTATE | 5.0 (AA) | 0.5 - 1.6 | [facility] - | | | [facility], | | mmol/L | [facility] | | | POC | | | [facility] | | | | | | OF CARE | | | | | | TESTS | | + + + + + + | METHEMOGLOB | 1.6 | 0.0 - 1.9 % | [facility] - | | | IN, POC | | | [facility] | | | | | | [facility] | | | | | | OF CARE | | | | | | TESTS | | + + + + + + | PAT TEMP | 37.0 | | [facility] - | | | ART, POC | | | [facility] | | | | | | [facility] | | | | | | OF CARE | | | | | | TESTS | | + + + + + + + + | Specimen | + + | Blood - Blood | | (substance) | + + + + + + + | Performing | Address | City/State/Zipcode | Phone Number | | Organization | | | | + + + + + | [facility] | [phone] | [place], [place] | | | [facility] | [address] | [phone] | | | TESTS | | | | + + + + + VANESSA-MAUREEN BLAS (08/16/2019 4:14 AM PDT) + + + + + + | Component | Value | Ref Range | Performed | Pathologist | | | | | At | Signature | + + + + + + | PH | 7.38 | 7.37 - 7.44 | [facility] | | | [facility], | | | [facility] | | | POC | | | [facility] | | | | | | OF CARE | | | | | | TESTS | | + + + + + + | PO2 | 184 (H) | 72 - 104 mmHg | [facility] - | | | [facility], | | | [facility] | | | POC | | | [facility] | | | | | | OF CARE | | | | | | TESTS | | + + + + + + | PCO2 | 32 | 32 - 43 mmHg | [facility] - | | | [facility], | | | [facility] | | | POC | | | [facility] | | | | | | OF CARE | | | | | | TESTS | | + + + + + + | TOTAL | 7.0 (L) | 13.5 - 17.5 | [facility] - | | | HEMOGLOBIN, | | g/dL | [facility] | | | POC | | | [facility] | | | | | | OF CARE | | | | | | TESTS | | + + + + + + | O2 SAT | 100.2 (H) | 92.0 - 98.0 % | [facility] - | | | ARTERIAL, | | | [facility] | | | POC | | | [facility] | | | | | | OF CARE | | | | | | TESTS | | + + + + + + | OXYHEMOGLOB | 96.0 | 94.0 - 100 % | [facility] - | | | IN, POC | | | [facility] | | | | | | [facility] | | | | | | OF CARE | | | | | | TESTS | | + + + + + + | HEMATOCRIT, | 21.5 (L) | 41.0 - 53.0 % | [facility] | | | POC | | | [facility] | | | | | | [facility] | | | | | | OF CARE | | | | | | TESTS | | + + + + + + | POTASSIUM, | 4.3 | 3.4 - 5.0 | [facility] - | | | POC | | mmol/L | [facility] | | | | | | [facility] | | | | | | OF CARE | | | | | | TESTS | | + + + + + + | SODIUM, POC | 135 | 134 - 143 | [facility] - | | | | | mmol/L | [facility] | | | | | | [facility] | | | | | | OF CARE | | | | | | TESTS | | + + + + + + | GLENN | 1.22 | 1.14 - 1.32 | [facility] - | | | IONIZED CA, | | mmol/L | [facility] | | | POC | | | [facility] | | | | | | OF CARE | | | | | | TESTS | | + + + + + + | CHLORIDE, | 104 | 97 - 108 mmol/L | [facility] | | | POC | | | [facility] | | | | | | [facility] | | | | | | OF CARE | | | | | | TESTS | | + + + + + + | GLUCOSE, | 335 (H) | 70 - 99 mg/dL | [facility] | | | POC | | | [facility] | | | | | | [facility]INT | | | | | | OF CARE | | | | | | TESTS | | + + + + + + | HCO3 | 19.0 (L) | 21 - 28 mmol/L | [facility] - | | | ARTERIAL, | | | [facility] | | | POC | | | [facility] | | | | | | OF CARE | | | | | | TESTS | | + + + + + + | BASE EXCESS | -6.2 | | [facility] - | | | ARTERIAL, | | | [facility] | | | POC | | | [facility] | | | | | | OF CARE | | | | | | TESTS | | + + + + + + | LACTATE | 4.1 (AA) | 0.5 - 1.6 | [facility] - | | | ARTERIAL, | | mmol/L | [facility] | | | POC | | | [facility] | | | | | | OF CARE | | | | | | TESTS | | + + + + + + | METHEMOGLOB | 1.4 | 0.0 - 1.9 % | [facility] - | | | IN, POC | | | [facility] | | | | | | [facility] | | | | | | OF CARE | | | | | | TESTS | | + + + + + + | PAT TEMP | 37.0 | | [facility] - | | | ART, POC | | | [facility] | | | | | | [facility] | | | | | | OF CARE | | | | | | TESTS | | + + + + + + + + | Specimen | + + | Blood - Blood | | (substance) | + + + + + + + | Performing | Address | City/State/Zipcode | Phone Number | | Organization | | | | + + + + + | [facility] | [address] | [place], [place] | | | [facility] [place] | [facility] | [phone] | | | TESTS | | | | + + + + + ABG-FULL ABL, POC (08/16/2019 4:02 AM PDT) + + + + + + | Component | Value | Ref Range | Performed | Pathologist | | | | | At | Signature | + + + + + + | PH | 7.35 (L) | 7.37 - 7.44 | [facility] - | | | ARTERIAL, | | | [facility] | | | POC | | | [facility] | | | | | | OF CARE | | | | | | TESTS | | + + + + + + | PO2 | 186 (H) | 72 - 104 mmHg | [facility] - | | | ARTERIAL, | | | [facility] | | | POC | | | [facility] | | | | | | OF CARE | | | | | | TESTS | | + + + + + + | PCO2 | 33 | 32 - 43 mmHg | [facility] - | | | ARTERIAL, | | | [facility] | | | POC | | | [facility] | | | | | | OF CARE | | | | | | TESTS | | + + + + + + | TOTAL | 7.7 (L) | 13.5 - 17.5 | [facility] - | | | HEMOGLOBIN, | | g/dL | [facility] | | | POC | | | [facility] | | | | | | OF CARE | | | | | | TESTS | | + + + + + + | O2 SAT | 100.0 (H) | 92.0 - 98.0 % | [facility] - | | | ARTERIAL, | | | [facility] | | | POC | | | [facility] | | | | | | OF CARE | | | | | | TESTS | | + + + + + + | OXYHEMOGLOB | 96.1 | 94.0 - 100 % | [facility] - | | | IN, POC | | | [facility] | | | | | | [facility] POINT | | | | | | OF CARE | | | | | | TESTS | | + + + + + + | HEMATOCRIT, | 23.5 (L) | 41.0 - 53.0 % | [facility] - | | | POC | | | [facility] | | | | | | [facility] | | | | | | OF CARE | | | | | | TESTS | | + + + + + + | POTASSIUM, | 4.5 | 3.4 - 5.0 | [facility] - | | | POC | | mmol/L | [facility] | | | | | | [facility] | | | | | | OF CARE | | | | | | TESTS | | + + + + + + | SODIUM, POC | 135 | 134 - 143 | [facility] - | | | | | mmol/L | [facility] | | | | | | [facility] | | | | | | OF CARE | | | | | | TESTS | | + + + + + + | GLENN | 1.29 | 1.14 - 1.32 | [facility] - | | | IONIZED CA, | | mmol/L | [facility] | | | POC | | | [facility] | | | | | | OF CARE | | | | | | TESTS | | + + + + + + | CHLORIDE, | 105 | 97 - 108 mmol/L | [facility] - | | | POC | | | [facility] | | | | | | [facility] | | | | | | OF CARE | | | | | | TESTS | | + + + + + + | GLUCOSE, | 185 (H) | 70 - 99 mg/dL | [facility] - | | | POC | | | [facility] | | | | | | [facility] | | | | | | OF CARE | | | | | | TESTS | | + + + + + + | HCO3 | 18.6 (L) | 21 - 28 mmol/L | [facility] - | | | ARTERIAL, | | | [facility] | | | POC | | | [facility] | | | | | | OF CARE | | | | | | TESTS | | + + + + + + | BASE EXCESS | -6.9 | | [facility] - | | | ARTERIAL, | | | [facility] | | | POC | | | [facility] | | | | | | OF CARE | | | | | | TESTS | | + + + + + + | LACTATE | 3.8 (H) | 0.5 - 1.6 | [facility] - | | | ARTERIAL, | | mmol/L | [facility] | | | POC | | | [facility] | | | | | | OF CARE | | | | | | TESTS | | + + + + + + | METHEMOGLOB | 1.4 | 0.0 - 1.9 % | [facility] - | | | IN, POC | | | [facility] | | | | | | [facility] | | | | | | OF CARE | | | | | | TESTS | | + + + + + + | PAT TEMP | 37.0 | | [facility] - | | | ART, POC | | | [facility] | | | | | | [facility] | | | | | | OF CARE | | | | | | TESTS | | + + + + + + + + | Specimen | + + | Blood - Blood | | (substance) | + + + + + + + | Performing | Address | City/State/Zipcode | Phone Number | | Organization | | | | + + + + + | [facility] | [address] | [place], [place] | | | [facility] CARE | [address] | [phone] | | | TESTS | | | | + + + + + SURGICAL PATHOLOGY (08/16/2019 4:01 AM PDT) + + + + + + | Component | Value | Ref Range | Performed | Pathologist | | | | | At | Signature | + + + + + + | Clinical | Alcoholic cirrhosis | | [facility] | | | History | | | DEPARTMENT | | | | | | OF | | | | | | PATHOLOGY | | + + + + + + | Final | A. Liver and | | [facility] | Electronically | | Pathologic | gallbladder, recipient | | DEPARTMENT | signed by Wong | | Diagnosis | [place], explant: | | OF | T Brendon, | | | Cirrhosis (see | | PATHOLOGY | MD on | | | comment) Marked | | | 08/20/2019 at | | | siderosis (see | | | 1:00 PM | | | comment) No evidence | | | | | | of malignancy Mild | | | | | | chronic cholecystitis | | | | | | with cholelithiasis | | | | | | Single benign lymph node | | | | | | (0/1)B. 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 | | | | | | Gallbladder, donor, | | | | | | cholecystectomy: Mild | | | | | | chronic cholecystitis | | | | | | with cholesterolosis | | | | | | Single benign lymph node | | | | | | (0/1)Comment: No | | | | | | residual fatty changes | | | | | | are present, suggesting | | | | | | burned-out | | | | | | steatohepatitis in a | | | | | | patient with known | | | | | | alcoholic cirrhosis. In | | | | | | addition, diffuse iron | | | | | | deposition is present | | | | | | within hepatocytes and | | | | | | Kupffer cells, raising | | | | | | the possibility of | | | | | | either primary or | | | | | | secondary | | | | | | hemochromatosis.Trichrom | | | | | | e, PAS/D, and iron | | | | | | stains are evaluated on | | | | | | the explant; a trichrome | | | | | | stain is reviewed on | | | | | | the allograft | | | | | | biopsy.Case seen | | | | | | by:Wong Olivas MD | | | | | | | | | | | | | | | | | | PathologistPathology, | | | | | | [facility] | | | | | | [facility] electronic | | | | | | signature indicates that | | | | | | I have personally | | | | | | reviewed all diagnostic | | | | | | slides, the gross and/or | | | | | | microscopic portion of | | | | | | this report and | | | | | | formulated the final | | | | | | diagnosis. | | | | + + + + + + | Gross | Received are 3 specimens | | [facility] | | | Description | in containers labeled | | DEPARTMENT | | | | with the patient's name | | OF | | | | (initials TMJ) and | | PATHOLOGY | | | | medical record number | | | | | | [id number]. A. Liver, | | | | | | recipient [place] liver | | | | | | and gallbladder: | | | | | | Labeled: Recipient | | | | | | [place] liver and | | | | | | gallbladder-2 Clinical: | | | | | | Preoperative therapy | | | | | | not given Radiographic: | | | | | | No mass lesions | | | | | | identified Specimen: | | | | | | Orientation: Anatomic | | | | | | Size: 23 ML x 20.5 SI x | | | | | | 8 AP cm Weight: [id number] | | | | | | grams Description: | | | | | | Red-brown, slightly | | | | | | nodular capsule with | | | | | | clean cut defects in | | | | | | segments 7, 6, 2, and 3 | | | | | | Parenchyma: Red-brown, | | | | | | slightly nodular, | | | | | | focally fibrotic and | | | | | | fatty Additional | | | | | | findings: N/A | | | | | | Gallbladder: 11.0 x 5.5 | | | | | | x 5.0 cm with conway-pink, | | | | | | smooth serosa and | | | | | | conway-pink to conway-red, | | | | | | velvety, hemorrhagic | | | | | | mucosa; no calculi | | | | | | identified. Lymph | | | | | | nodes: 1.3 cm cystic | | | | | | duct lymph node Fixation | | | | | | details: Ischemic time: | | | | | | 4:01 AM on | | | | | | 08/16/19Formalin time: | | | | | | 9:10 AM on | | | | | | 08/17/19Fixing until: | | | | | | 7:00 PM on 08/17/19Total | | | | | | fixation time: 9 hours | | | | | | and 50 minutes Sections | | | | | | submitted: | | | | | | [facility] [place] Cassette | | | | | | Index:A1: Gallbladder | | | | | | (duct margin, lymph | | | | | | node, wall)A2: Hepatic | | | | | | portal margins, en | | | | | | faceA3: Hepatic vein | | | | | | margins, en faceA4: | | | | | | Background left lobe, | | | | | | two leasing representative | | | | | | sectionsA5: Background | | | | | | right lobe, two | | | | | | leasing representative | | | | | | sectionsB. Liver, | | | | | | allograft liver biopy: | | | | | | Received labeled | | | | | | "allograft liver | | | | | | biopsy-3" is a 1.7 cm in | | | | | | length by 0.2 cm in | | | | | | diameter conway-brown, | | | | | | cylindrical fragment of | | | | | | tissue. The specimen is | | | | | | wrapped and submitted | | | | | | entirely in cassette | | | | | | B1.C. Gallbladder, donor | | | | | | gallbladder: Labeled: | | | | | | Donor gallbladder-4 | | | | | | Specimen Integrity: | | | | | | Intact gallbladder | | | | | | Overall size: 11 L x | | | | | | 3.5 D cm Attached liver: | | | | | | Absent Cystic duct | | | | | | margin: Received patent, | | | | | | measuring 1.5 L x 0.4 D | | | | | | cm, and inked blue | | | | | | Cystic duct lymph node: | | | | | | 0.8 cm possible lymph | | | | | | node Serosa appears: | | | | | | Conway-pink to conway-red, | | | | | | hemorrhagic and slightly | | | | | | ragged Mucosa appears: | | | | | | Conway-red and velvety | | | | | | with diffuse yellow | | | | | | stippling Stones: | | | | | | Absent Wall thickness: | | | | | | 0.3 cm in greatest | | | | | | thickness Submitted: | | | | | | [facility] [place] sections | | | | | | Cassette Summary:C1: | | | | | | Cystic duct margin | | | | | | (inked & en face), lymph | | | | | | node, and | | | | | | leasing representative sections | | | | | | of wall(RLW) | | | | + + + + + + | Ancillary | Analyte specific | | [facility] | | | Information | reagents are used in | | DEPARTMENT | | | | many laboratory tests | | OF | | | | necessary for standard | | PATHOLOGY | | | | medical care. This test | | | | | | was developed and its | | | | | | performance | | | | | | characteristics | | | | | | determined by [facility] | | | | | | laboratories. It has not | | | | | | been cleared or | | | | | | approved by the [place] Food | | | | | | and Drug Administration | | | | | | (FDA). FDA does not | | | | | | require this test to go | | | | | | through premarket FDA | | | | | | review. This test is | | | | | | used for clinical | | | | | | purposes. It should not | | | | | | be regarded as | | | | | | investigational or for | | | | | | research. This | | | | | | laboratory is certified | | | | | | under the Clinical | | | | | | Laboratory Improvement | | | | | | Amendments (CLIA) as | | | | | | qualified to perform | | | | | | high complexity clinical | | | | | | laboratory testing. If | | | | | | immunohistochemical | | | | | | analysis (IHC) was | | | | | | performed concurrently | | | | | | with flow cytometry, the | | | | | | IHC was done to allow | | | | | | assessment of | | | | | | immunoarchitecture, | | | | | | which is not supplied by | | | | | | flow cytometry. Flow | | | | | | cytometry enables better | | | | | | assessment of clonality | | | | | | and antigen aberrancy | | | | | | than IHC. Appropriate | | | | | | positive controls and/or | | | | | | negative controls were | | | | | | used for all stains, | | | | | | including | | | | | | immunohistochemical | | | | | | stains, special stains, | | | | | | and in situ | | | | | | hybridization, and these | | | | | | reacted appropriately. | | | | + + + + + + + + | Specimen | + + | Tissue - Liver | | structure (body | | structure) | + + | Tissue - Liver | | structure (body | | structure) | + + | Tissue - Gallbladder | | structure (body | | structure) | + + + + + + + | Performing | Address | City/State/Zipcode | Phone Number | | Organization | | | | + + + + + | [facility] | [address] | [place], [place] [address] | | | PATHOLOGY | [address] | | | + + + + + ABCipriano-CASEY SAHA POC (08/16/2019 3:37 AM PDT) + + + + + + | Component | Value | Ref Range | Performed | Pathologist | | | | | At | Signature | + + + + + + | PH | 7.38 | 7.37 - 7.44 | [facility] - | | | ARTERIAL, | | | [facility] | | | POC | | | [facility] | | | | | | OF CARE | | | | | | TESTS | | + + + + + + | PO2 | 172 (H) | 72 - 104 mmHg | [facility] - | | | ARTERIAL, | | | [facility] | | | POC | | | [facility] | | | | | | OF CARE | | | | | | TESTS | | + + + + + + | PCO2 | 33 | 32 - 43 mmHg | [facility] - | | | ARTERIAL, | | | [facility] | | | POC | | | [facility] | | | | | | OF CARE | | | | | | TESTS | | + + + + + + | TOTAL | 8.0 (L) | 13.5 - 17.5 | [facility] - | | | HEMOGLOBIN, | | g/dL | [facility] | | | POC | | | [facility] | | | | | | OF CARE | | | | | | TESTS | | + + + + + + | O2 SAT | 100.0 (H) | 92.0 - 98.0 % | [facility] - | | | ARTERIAL, | | | [facility] | | | POC | | | [facility] | | | | | | OF CARE | | | | | | TESTS | | + + + + + + | OXYHEMOGLOB | 96.1 | 94.0 - 100 % | [facility] - | | | IN, POC | | | [facility] | | | | | | [facility] [place] POINT | | | | | | OF CARE | | | | | | TESTS | | + + + + + + | HEMATOCRIT, | 24.5 (L) | 41.0 - 53.0 % | [facility] - | | | POC | | | [facility] | | | | | | [facility]INT | | | | | | OF CARE | | | | | | TESTS | | + + + + + + | POTASSIUM, | 4.9 | 3.4 - 5.0 | [facility] - | | | POC | | mmol/L | [facility] | | | | | | [facility] | | | | | | OF CARE | | | | | | TESTS | | + + + + + + | SODIUM, POC | 136 | 134 - 143 | [facility] - | | | | | mmol/L | [facility] | | | | | | [facility] | | | | | | OF CARE | | | | | | TESTS | | + + + + + + | GLENN | 1.32 | 1.14 - 1.32 | [facility] - | | | IONIZED CA, | | mmol/L | [facility] | | | POC | | | [facility] | | | | | | OF CARE | | | | | | TESTS | | + + + + + + | CHLORIDE, | 107 | 97 - 108 mmol/L | [facility] - | | | POC | | | [facility] | | | | | | [facility] | | | | | | OF CARE | | | | | | TESTS | | + + + + + + | GLUCOSE, | 108 (H) | 70 - 99 mg/dL | [facility] - | | | POC | | | [facility] | | | | | | [facility] | | | | | | OF CARE | | | | | | TESTS | | + + + + + + | HCO3 | 19.3 (L) | 21 - 28 mmol/L | [facility] - | | | ARTERIAL, | | | [facility] | | | POC | | | [facility] | | | | | | OF CARE | | | | | | TESTS | | + + + + + + | BASE EXCESS | -5.8 | | [facility] - | | | ARTERIAL, | | | [facility] | | | POC | | | [facility] | | | | | | OF CARE | | | | | | TESTS | | + + + + + + | LACTATE | 3.3 (H) | 0.5 - 1.6 | [facility] - | | | ARTERIAL, | | mmol/L | [facility] | | | POC | | | [facility] | | | | | | OF CARE | | | | | | TESTS | | + + + + + + | METHEMOGLOB | 1.4 | 0.0 - 1.9 % | [facility] - | | | IN, POC | | | [facility] | | | | | | [facility] | | | | | | OF CARE | | | | | | TESTS | | + + + + + + | PAT TEMP | 37.0 | | [facility] - | | | ART, POC | | | [facility] | | | | | | [facility] | | | | | | OF CARE | | | | | | TESTS | | + + + + + + + + | Specimen | + + | Blood - Blood | | (substance) | + + + + + + + | Performing | Address | City/State/Zipcode | Phone Number | | Organization | | | | + + + + + | [facility] | [address] | [place], [place] | | | [facility] | [address] | [address] | | | TESTS | | | | + + + + + ABG-FULL ABL, POC (08/16/2019 3:06 AM PDT) + + + + + + | Component | Value | Ref Range | Performed | Pathologist | | | | | At | Signature | + + + + + + | PH | 7.35 (L) | 7.37 - 7.44 | [facility] - | | | ARTERIAL, | | | [facility] | | | POC | | | [place] | | | | | | OF CARE | | | | | | TESTS | | + + + + + + | PO2 | 187 (H) | 72 - 104 mmHg | [facility] - | | | ARTERIAL, | | | [facility] | | | POC | | | [place] | | | | | | OF CARE | | | | | | TESTS | | + + + + + + | PCO2 | 33 | 32 - 43 mmHg | [facility] - | | | ARTERIAL, | | | [facility] | | | POC | | | [place] | | | | | | OF CARE | | | | | | TESTS | | + + + + + + | TOTAL | 8.5 (L) | 13.5 - 17.5 | [facility] - | | | HEMOGLOBIN, | | g/dL | [facility] | | | POC | | | [facility] | | | | | | OF CARE | | | | | | TESTS | | + + + + + + | O2 SAT | 100.1 (H) | 92.0 - 98.0 % | [facility] - | | | ARTERIAL, | | | [facility] | | | POC | | | [facility] | | | | | | OF CARE | | | | | | TESTS | | + + + + + + | OXYHEMOGLOB | 96.4 | 94.0 - 100 % | [facility] - | | | IN, POC | | | [facility] | | | | | | [facility] | | | | | | OF CARE | | | | | | TESTS | | + + + + + + | HEMATOCRIT, | 26.0 (L) | 41.0 - 53.0 % | [facility] - | | | POC | | | [facility] | | | | | | [facility] | | | | | | OF CARE | | | | | | TESTS | | + + + + + + | POTASSIUM, | 4.9 | 3.4 - 5.0 | [facility] - | | | POC | | mmol/L | [facility] | | | | | | [facility] | | | | | | OF CARE | | | | | | TESTS | | + + + + + + | SODIUM, POC | 135 | 134 - 143 | [facility] - | | | | | mmol/L | [facility] | | | | | | [facility] | | | | | | OF CARE | | | | | | TESTS | | + + + + + + | GLENN | 1.22 | 1.14 - 1.32 | [facility] - | | | IONIZED CA, | | mmol/L | [facility] | | | POC | | | [facility] | | | | | | OF CARE | | | | | | TESTS | | + + + + + + | CHLORIDE, | 107 | 97 - 108 mmol/L | [facility] - | | | POC | | | [facility] | | | | | | [facility] | | | | | | OF CARE | | | | | | TESTS | | + + + + + + | GLUCOSE, | 118 (H) | 70 - 99 mg/dL | [facility] - | | | POC | | | [facility] | | | | | | [facility] | | | | | | OF CARE | | | | | | TESTS | | + + + + + + | HCO3 | 18.3 (L) | 21 - 28 mmol/L | [facility] - | | | ARTERIAL, | | | [facility] | | | POC | | | [facility] | | | | | | OF CARE | | | | | | TESTS | | + + + + + + | BASE EXCESS | -7.3 | | [facility] - | | | ARTERIAL, | | | [facility] | | | POC | | | [facility] | | | | | | OF CARE | | | | | | TESTS | | + + + + + + | LACTATE | 2.9 (H) | 0.5 - 1.6 | [facility] - | | | ARTERIAL, | | mmol/L | [facility] | | | POC | | | [facility] | | | | | | OF CARE | | | | | | TESTS | | + + + + + + | METHEMOGLOB | 1.3 | 0.0 - 1.9 % | [facility] - | | | IN, POC | | | [facility] | | | | | | [facility] | | | | | | OF CARE | | | | | | TESTS | | + + + + + + | PAT TEMP | 37.0 | | [facility] - | | | ART, POC | | | [facility] | | | | | | [facility] | | | | | | OF CARE | | | | | | TESTS | | + + + + + + + + | Specimen | + + | Blood - Blood | | (substance) | + + + + + + + | Performing | Address | City/State/Zipcode | Phone Number | | Organization | | | | + + + + + | [facility] | [address] | [place], [place] | | | [facility] [place] | [address] | [phone] | | | TESTS | | | | + + + + + ABG-FULL ABL POC (08/16/2019 2:18 AM PDT) + + + + + + | Component | Value | Ref Range | Performed | Pathologist | | | | | At | Signature | + + + + + + | PH | 7.32 (L) | 7.37 - 7.44 | [facility] - | | | ARTERIAL, | | | [facility] | | | POC | | | [facility] | | | | | | OF CARE | | | | | | TESTS | | + + + + + + | PO2 | 177 (H) | 72 - 104 mmHg | [facility] - | | | ARTERIAL, | | | [facility] | | | POC | | | [facility] | | | | | | OF CARE | | | | | | TESTS | | + + + + + + | PCO2 | 37 | 32 - 43 mmHg | [facility] - | | | ARTERIAL, | | | [facility] | | | POC | | | [facility] | | | | | | OF CARE | | | | | | TESTS | | + + + + + + | TOTAL | 8.4 (L) | 13.5 - 17.5 | [facility] - | | | HEMOGLOBIN, | | g/dL | [facility] | | | POC | | | [facility] | | | | | | OF CARE | | | | | | TESTS | | + + + + + + | O2 SAT | 99.9 (H) | 92.0 - 98.0 % | [facility] - | | | [facility], | | | [facility] | | | POC | | | [facility] | | | | | | OF CARE | | | | | | TESTS | | + + + + + + | OXYHEMOGLOB | 96.1 | 94.0 - 100 % | [facility] - | | | IN, POC | | | [facility] | | | | | | [facility] | | | | | | OF CARE | | | | | | TESTS | | + + + + + + | HEMATOCRIT, | 25.6 (L) | 41.0 - 53.0 % | [facility] - | | | POC | | | [facility] | | | | | | [facility] | | | | | | OF CARE | | | | | | TESTS | | + + + + + + | POTASSIUM, | 4.9 | 3.4 - 5.0 | [facility] - | | | POC | | mmol/L | [facility] | | | | | | [facility] | | | | | | OF CARE | | | | | | TESTS | | + + + + + + | SODIUM, POC | 135 | 134 - 143 | [facility] - | | | | | mmol/L | [facility] | | | | | | [facility] | | | | | | OF CARE | | | | | | TESTS | | + + + + + + | GLENN | 1.10 (L) | 1.14 - 1.32 | [facility] - | | | IONIZED CA, | | mmol/L | [facility] | | | POC | | | [facility] | | | | | | OF CARE | | | | | | TESTS | | + + + + + + | CHLORIDE, | 106 | 97 - 108 mmol/L | [facility] - | | | POC | | | [facility] | | | | | | [facility] | | | | | | OF CARE | | | | | | TESTS | | + + + + + + | GLUCOSE, | 122 (H) | 70 - 99 mg/dL | [facility] - | | | POC | | | [facility] | | | | | | [facility] | | | | | | OF CARE | | | | | | TESTS | | + + + + + + | HCO3 | 19.2 (L) | 21 - 28 mmol/L | [facility] - | | | [facility], | | | [facility] | | | POC | | | [place] | | | | | | OF CARE | | | | | | TESTS | | + + + + + + | BASE EXCESS | -6.8 | | [facility] - | | | [facility], | | | [facility] | | | POC | | | [facility] | | | | | | OF CARE | | | | | | TESTS | | + + + + + + | LACTATE | 2.0 (H) | 0.5 - 1.6 | [facility] - | | | [facility], | | mmol/L | [facility] | | | POC | | | [facility] | | | | | | OF CARE | | | | | | TESTS | | + + + + + + | METHEMOGLOB | 1.6 | 0.0 - 1.9 % | [facility] - | | | IN, POC | | | [facility] | | | | | | [facility] | | | | | | OF CARE | | | | | | TESTS | | + + + + + + | PAT TEMP | 37.0 | | [facility] - | | | ROD POC | | | [facility] | | | | | | [facility] | | | | | | OF CARE | | | | | | TESTS | | + + + + + + + + | Specimen | + + | Blood - Blood | | (substance) | + + + + + + + | Performing | Address | City/State/Zipcode | Phone Number | | Organization | | | | + + + + + | [facility] | [address] | [place], [place] | | | [facility] | [address] | [address] | | | TESTS | | | | + + + + + ABG-FULL ABL, POC (08/16/2019 1:37 AM PDT) + + + + + + | Component | Value | Ref Range | Performed | Pathologist | | | | | At | Signature | + + + + + + | PH | 7.25 (L) | 7.37 - 7.44 | [facility] | | | [facility], | | | [facility] | | | POC | | | [facility] | | | | | | OF CARE | | | | | | TESTS | | + + + + + + | PO2 | 159 (H) | 72 - 104 mmHg | [facility] - | | | [facility], | | | [facility] | | | POC | | | [facility] | | | | | | OF CARE | | | | | | TESTS | | + + + + + + | PCO2 | 47 (H) | 32 - 43 mmHg | [facility] - | | | [facility], | | | [facility] | | | POC | | | [facility] | | | | | | OF CARE | | | | | | TESTS | | + + + + + + | TOTAL | 8.4 (L) | 13.5 - 17.5 | [facility] - | | | HEMOGLOBIN, | | g/dL | [facility] | | | POC | | | [facility] | | | | | | OF CARE | | | | | | TESTS | | + + + + + + | O2 SAT | 99.4 (H) | 92.0 - 98.0 % | [facility] - | | | [facility], | | | [facility] | | | POC | | | [facility] | | | | | | OF CARE | | | | | | TESTS | | + + + + + + | OXYHEMOGLOB | 95.6 | 94.0 - 100 % | [facility] - | | | IN, POC | | | [facility] | | | | | | [facility] | | | | | | OF CARE | | | | | | TESTS | | + + + + + + | HEMATOCRIT, | 25.8 (L) | 41.0 - 53.0 % | [facility] - | | | POC | | | [facility] | | | | | | [facility] | | | | | | OF CARE | | | | | | TESTS | | + + + + + + | POTASSIUM, | 4.8 | 3.4 - 5.0 | [facility] - | | | POC | | mmol/L | [facility] | | | | | | [facility] | | | | | | OF CARE | | | | | | TESTS | | + + + + + + | SODIUM, POC | 135 | 134 - 143 | [facility] - | | | | | mmol/L | [facility] | | | | | | [facility] [facility] | | | | | | OF CARE | | | | | | TESTS | | + + + + + + | GLENN | 1.22 | 1.14 - 1.32 | [facility] - | | | IONIZED CA, | | mmol/L | [facility] | | | POC | | | [facility] | | | | | | OF CARE | | | | | | TESTS | | + + + + + + | CHLORIDE, | 106 | 97 - 108 mmol/L | [facility] - | | | POC | | | [facility] | | | | | | [place] | | | | | | OF CARE | | | | | | TESTS | | + + + + + + | GLUCOSE, | 104 (H) | 70 - 99 mg/dL | [facility] - | | | POC | | | [facility] | | | | | | [place] | | | | | | OF CARE | | | | | | TESTS | | + + + + + + | HCO3 | 20.4 (L) | 21 - 28 mmol/L | [facility] - | | | ARTERIAL, | | | [facility] | | | POC | | | [place], [place]INT | | | | | | OF CARE | | | | | | TESTS | | + + + + + + | BASE EXCESS | -6.8 | | [facility] - | | | ARTERIAL, | | | [facility] | | | POC | | | [place] | | | | | | OF CARE | | | | | | TESTS | | + + + + + + | LACTATE | 1.1 | 0.5 - 1.6 | [facility] - | | | ARTERIAL, | | mmol/L | [facility] | | | POC | | | [facility] | | | | | | OF CARE | | | | | | TESTS | | + + + + + + | METHEMOGLOB | 1.7 | 0.0 - 1.9 % | [facility] - | | | IN, POC | | | [facility] | | | | | | [place] | | | | | | OF CARE | | | | | | TESTS | | + + + + + + | PAT TEMP | 37.0 | | [facility] - | | | ART, POC | | | [facility] | | | | | | [place] | | | | | | OF CARE | | | | | | TESTS | | + + + + + + + + | Specimen | + + | Blood - Blood | | (substance) | + + + + + + + | Performing | Address | City/State/Zipcode | Phone Number | | Organization | | | | + + + + + | [facility] | [address] | [place], [place] | | | [facility] OF CARE | [facility] | [address] | | | TESTS | | | | + + + + + CELL COUNT, BODY FL (08/16/2019 1:32 AM PDT) + +--------+ + + + | Component | Value | Ref Range | Performed | Pathologist | | | | | At | Signature | + +--------+ + + + | RBC, BODY | 40,000 | cu mm | [facility] | | | FLUID | | | LABORATORY | | | | | | SERVICES, | | | | | | CORE | | + +--------+ + + + | WBC, BODY | 909 | 0 - 999 cu mm | [facility] | | | FLUID | | | LABORATORY | | | | | | SERVICES, | | | | | | CORE | | + +--------+ + + + + + | Specimen | + + | Ascites fluid - | | Ectopic ureter | | (disorder) | + + + + + + + | Performing | Address | City/State/Zipcode | Phone Number | | Organization | | | | + + + + + | [facility] | [address] | [place] [address] | | | CLAUDIA, ART[place] | [address] | | | + + + + + CULTURE, FUNGAL EXCEPT BLOOD, SKIN, HAIR, NAIL (08/16/2019 1:32 AM PDT) + + | Specimen | + + | Fluid - Ectopic | | ureter (disorder) | + + + + + | Narrative | Performed At | + + + | Culture Report: No fungus isolated at 3 weeks. | [facility] | | | [facility] - | | | [place] | + + + + + + + + | Performing | Address | City/State/Zipcode | Phone Number | | Organization | | | | + + + + + | [facility] - | [address] | [place] [address] | | | [place] | | | | + + + + + CULTURE, BODY FLUID (08/16/2019 1:32 AM PDT) + + | Specimen | + + | Fluid - Ectopic | | ureter (disorder) | + + + + + | Narrative | Performed At | + + + | Culture Report: No growth No anaerobic organisms isolated | [facility] - | | Gram Stain: No squamous epithelial cells Moderate | [facility] - | | polymorphonuclear cells No organisms seen | [place] | + + + + + + + + | Performing | Address | City/State/Zipcode | Phone Number | | Organization | | | | + + + + + | [facility] - | [address] [facility] | [place] [address] | | | [place] | | | | + + + + + CULTURE, AFB (ALL SPEC TYPES EXCEPT BLOOD) (08/16/2019 1:32 AM PDT) + + | Specimen | + + | Fluid - Ectopic | | ureter (disorder) | + + + + + | Narrative | Performed At | + + + | Culture Report: No acid fast bacteria isolated at 6 weeks. AFB | [facility] - | | Smear: AFB not detected | [facility] - | | | [place] | + + + + + + + + | Performing | Address | City/State/Zipcode | Phone Number | | Organization | | | | + + + + + | [facility] - | [address] | [place] [address] | | | [place] | | | | + + + + + LAB HOLD - BODY FLUID (08/16/2019 1:32 AM PDT) + + | Specimen | + + | Ascites fluid | + + + + + + + | Performing | Address | City/State/Zipcode | Phone Number | | Organization | | | | + + + + + | [facility] | [address] | [place] [address] | | | SERVICES, ARTIS | [address] | | | + + + + + DIFFERENTIAL, BFL (08/16/2019 1:32 AM PDT) + +-------+ + + + | Component | Value | Ref Range | Performed | Pathologist | | | | | At | Signature | + +-------+ + + + | NEUTROPHIL( | 14 | % | [facility] | | | BF) | | | LABORATORY | | | | | | SERVICES, | | | | | | CORE | | + +-------+ + + + | LYMPHOCYTES | 65 | % | [facility] | | | (BF) | | | LABORATORY | | | | | | SERVICES, | | | | | | CORE | | + +-------+ + + + | MONOCYTES(B | 10 | % | [facility] | | | [place]) | | | LABORATORY | | | | | | SERVICES, | | | | | | CORE | | + +-------+ + + + | MACROPHAGES | 9 | % | [facility] | | | (BF) | | | LABORATORY | | | | | | SERVICES, | | | | | | CORE | | + +-------+ + + + | EOSINOPHILS | 2 | % | [facility] | | | (BF) | | | LABORATORY | | | | | | SERVICES, | | | | | | CORE | | + +-------+ + + + | BASOPHILS(B | 0 | % | [facility] | | | F) | | | LABORATORY | | | | | | SERVICES, | | | | | | CORE | | + +-------+ + + + | REACTIVE | 0 | % | [facility] | | | LYMPHS(BF) | | | LABORATORY | | | | | | SERVICES, | | | | | | CORE | | + +-------+ + + + | ATYPICAL | 0 | 0.0 % | [facility] | | | CELLS(BF) | | | LABORATORY | | | | | | SERVICES, | | | | | | CORE | | + +-------+ + + + | TOTAL CELL | 100 | | [facility] | | | COUNTED,BFL | | | LABORATORY | | | | | | SERVICES, | | | | | | CORE | | + +-------+ + + + + + | Specimen | + + | Ascites fluid - | | Ectopic ureter | | (disorder) | + + + + + | Narrative | Performed At | + + + | ETOH cirrhosis ETOH cirrhosis | [facility] | | | LABORATORY | | | SERVICES, CORE | + + + + + + + + | Performing | Address | City/State/Zipcode | Phone Number | | Organization | | | | + + + + + | [facility] | [address] | [place] [address] | | | SERVICES, CORE | [address] | | | + + + + + NON ASSISTANT BUSINESS MANAGER CYTOLOGY (08/16/2019 1:32 AM PDT) + + + + + + | Component | Value | Ref Range | Performed | Pathologist | | | | | At | Signature | + + + + + + | Clinical | 54 year old male with a | | [facility] | | | History | history of liver | | LABORATORY | | | | cirrhosis, status post | | SERVICES, | | | | liver transplant. | | [facility] + | | | | | | HEALING | | + + + + + + | Final | A. Ascites:Negative for | | [facility] | Electronically | | Pathologic | carcinomaCase seen | | LABORATORY | signed by Des | | Diagnosis | by:Francisca Corral, | | SERVICES, | Ruben Glass, | | | SCT(ASCP) - | | [facility] | DO on | | | CytotechnologistArlette | | HEALTH + | 08/19/2019 at | | | MD Esthela | | HEALING | 4:40 PM | | | | | | | | | Cytopathology | | | | | | FellowDes Glass, | | | | | | DO | | | | | | | | | | | | PathologistPathology, | | | | | | [facility] | | | | | | University electronic | | | | | | signature indicates that | | | | | | I have personally | | | | | | reviewed all diagnostic | | | | | | slides, the gross and/or | | | | | | microscopic portion of | | | | | | this report and | | | | | | formulated the final | | | | | | diagnosis. | | | | + + + + + + | Microscopic | Adequacy: Satisfactory | | [facility] | | | Details | for evaluation. | | DEPARTMENT | | | | Inflammation: chronic | | OF | | | | inflammation | | PATHOLOGY | | + + + + + + | Gross | A. Received is 3 mL of | | [facility] | | | Description | cloudy orange fluid for | | DEPARTMENT | | | | cytologic evaluation. | | OF | | | | One [employer] slide | | PATHOLOGY | | | | prepared. A cell block | | | | | | was not performed. | | | | + + + + + + + + | Specimen | + + | Fluid - Peritoneal | | (qualifier value) | + + + + + + + | Performing | Address | City/State/Zipcode | Phone Number | | Organization | | | | + + + + + | [facility] | [address] | [place] [address] | | | [facility] | | | | | HEALTH + HEALING | | | | + + + + + | [facility] | [address] | [place] [address] | | | PATHOLOGY | [address] | | | + + + + + PRODUCT - FRESH FROZEN PLASMA (08/16/2019 1:03 AM PDT) + + + + + + | Component | Value | Ref Range | Performed | Pathologist | | | | | At | Signature | + + + + + + | PRODUCT | LIQUID PLASMA, | | [facility] | | | DESCRIPTION | IRRADIATED | | LABORATORY | | | | | | SERVICES, | | | | | | TRANSFUSION | | | | | | MEDICINE | | + + + + + + | PRODUCT | [id number] | | [facility] | | | UNIT # | | | LABORATORY | | | | | | SERVICES, | | | | | | TRANSFUSION | | | | | | MEDICINE | | + + + + + + | UNIT ABO | A | | [facility] | | | | | | LABORATORY | | | | | | SERVICES, | | | | | | TRANSFUSION | | | | | | MEDICINE | | + + + + + + | UNIT RH | POS | | [facility] | | | | | | LABORATORY | | | | | | SERVICES, | | | | | | TRANSFUSION | | | | | | MEDICINE | | + + + + + + | STATUS OF | Returned to Blood Bank | | [facility] | | | UNIT | | | LABORATORY | | | | | | SERVICES, | | | | | | TRANSFUSION | | | | | | MEDICINE | | + + + + + + | EXPIRATION | [id number] | | [facility] | | | DATE | | | LABORATORY | | | | | | SERVICES, | | | | | | TRANSFUSION | | | | | | MEDICINE | | + + + + + + | BLOOD TYPE | 6200 | | [facility] | | | BARCODE | | | LABORATORY | | | | | | SERVICES, | | | | | | TRANSFUSION | | | | | | MEDICINE | | + + + + + + | BLOOD | [id number] | | [facility] | | | PRODUCT | | | LABORATORY | | | CODE | | | SERVICES, | | | | | | TRANSFUSION | | | | | | MEDICINE | | + + + + + + + + | Specimen | + + | | + + + + + + + | Performing | Address | City/State/Zipcode | Phone Number | | Organization | | | | + + + + + | [facility] | [address] | [place] [address] | | | SERVICES, | [address] | | | | TRANSFUSION MEDICINE | | | | + + + + + PRODUCT - FRESH FROZEN PLASMA (08/16/2019 1:03 AM PDT) + + + + + + | Component | Value | Ref Range | Performed | Pathologist | | | | | At | Signature | + + + + + + | PRODUCT | LIQUID PLASMA, | | [facility] | | | DESCRIPTION | IRRADIATED | | LABORATORY | | | | | | SERVICES, | | | | | | TRANSFUSION | | | | | | MEDICINE | | + + + + + + | PRODUCT | [id number] | | [facility] | | | UNIT # | | | LABORATORY | | | | | | SERVICES, | | | | | | TRANSFUSION | | | | | | MEDICINE | | + + + + + + | UNIT ABO | A | | [facility] | | | | | | LABORATORY | | | | | | SERVICES, | | | | | | TRANSFUSION | | | | | | MEDICINE | | + + + + + + | UNIT RH | POS | | [facility] | | | | | | LABORATORY | | | | | | SERVICES, | | | | | | TRANSFUSION | | | | | | MEDICINE | | + + + + + + | STATUS OF | Returned to Blood Bank | | [facility] | | | UNIT | | | LABORATORY | | | | | | SERVICES, | | | | | | TRANSFUSION | | | | | | MEDICINE | | + + + + + + | EXPIRATION | [id number] | | [facility] | | | DATE | | | LABORATORY | | | | | | SERVICES, | | | | | | TRANSFUSION | | | | | | MEDICINE | | + + + + + + | BLOOD TYPE | 6200 | | [facility] | | | BARCODE | | | LABORATORY | | | | | | SERVICES, | | | | | | TRANSFUSION | | | | | | MEDICINE | | + + + + + + | BLOOD | [id number] | | [facility] | | | PRODUCT | | | LABORATORY | | | CODE | | | SERVICES, | | | | | | TRANSFUSION | | | | | | MEDICINE | | + + + + + + + + | Specimen | + + | | + + + + + + + | Performing | Address | City/State/Zipcode | Phone Number | | Organization | | | | + + + + + | [facility] | [address] | [place] [address] | | | SERVICES, | [address] | | | | TRANSFUSION MEDICINE | | | | + + + + + PRODUCT - FRESH FROZEN PLASMA (08/16/2019 1:03 AM PDT) + + + + + + | Component | Value | Ref Range | Performed | Pathologist | | | | | At | Signature | + + + + + + | PRODUCT | LIQUID PLASMA, | | [facility] | | | DESCRIPTION | IRRADIATED | | LABORATORY | | | | | | SERVICES, | | | | | | TRANSFUSION | | | | | | MEDICINE | | + + + + + + | PRODUCT | [id number] | | [facility] | | | UNIT # | | | LABORATORY | | | | | | SERVICES, | | | | | | TRANSFUSION | | | | | | MEDICINE | | + + + + + + | UNIT ABO | A | | [facility] | | | | | | LABORATORY | | | | | | SERVICES, | | | | | | TRANSFUSION | | | | | | MEDICINE | | + + + + + + | UNIT RH | POS | | [facility] | | | | | | LABORATORY | | | | | | SERVICES, | | | | | | TRANSFUSION | | | | | | MEDICINE | | + + + + + + | STATUS OF | Returned to Blood Bank | | [facility] | | | UNIT | | | LABORATORY | | | | | | SERVICES, | | | | | | TRANSFUSION | | | | | | MEDICINE | | + + + + + + | EXPIRATION | [id number] | | [facility] | | | DATE | | | LABORATORY | | | | | | SERVICES, | | | | | | TRANSFUSION | | | | | | MEDICINE | | + + + + + + | BLOOD TYPE | 6200 | | [facility] | | | BARCODE | | | LABORATORY | | | | | | SERVICES, | | | | | | TRANSFUSION | | | | | | MEDICINE | | + + + + + + | BLOOD | [id number] | | [facility] | | | PRODUCT | | | LABORATORY | | | CODE | | | SERVICES, | | | | | | TRANSFUSION | | | | | | MEDICINE | | + + + + + + + + | Specimen | + + | | + + + + + + + | Performing | Address | City/State/Zipcode | Phone Number | | Organization | | | | + + + + + | [email or web address] | [address] | [place] [address] | | | SERVICES, | [address] | | | | TRANSFUSION MEDICINE | | | | + + + + + PRODUCT - PLATELET PHERESIS LEUKOREDUCED (08/16/2019 1:03 AM PDT) + + + + + + | Component | Value | Ref Range | Performed | Pathologist | | | | | At | Signature | + + + + + + | PRODUCT | PLATELETS PHERESIS | | [facility] | | | DESCRIPTION | LEUKOCYTE REDUCED | | LABORATORY | | | | | | SERVICES, | | | | | | TRANSFUSION | | | | | | MEDICINE | | + + + + + + | PRODUCT | [id number] | | [facility] | | | UNIT # | | | LABORATORY | | | | | | SERVICES, | | | | | | TRANSFUSION | | | | | | MEDICINE | | + + + + + + | UNIT ABO | A | | [facility] | | | | | | LABORATORY | | | | | | SERVICES, | | | | | | TRANSFUSION | | | | | | MEDICINE | | + + + + + + | UNIT RH | POS | | [facility] | | | | | | LABORATORY | | | | | | SERVICES, | | | | | | TRANSFUSION | | | | | | MEDICINE | | + + + + + + | STATUS OF | Presumed Transfused | | [facility] | | | UNIT | | | LABORATORY | | | | | | SERVICES, | | | | | | TRANSFUSION | | | | | | MEDICINE | | + + + + + + | EXPIRATION | [id number] | | [facility] | | | DATE | | | LABORATORY | | | | | | SERVICES, | | | | | | TRANSFUSION | | | | | | MEDICINE | | + + + + + + | BLOOD TYPE | 6200 | | [facility] | | | BARCODE | | | LABORATORY | | | | | | SERVICES, | | | | | | TRANSFUSION | | | | | | MEDICINE | | + + + + + + | BLOOD | [id number] | | [facility] | | | PRODUCT | | | LABORATORY | | | CODE | | | SERVICES, | | | | | | TRANSFUSION | | | | | | MEDICINE | | + + + + + + + + | Specimen | + + | | + + + + + + + | Performing | Address | City/State/Zipcode | Phone Number | | Organization | | | | + + + + + | [facility] | [address] | [place] [address] | | | SERVICES, | [address] | | | | TRANSFUSION MEDICINE | | | | + + + + + PRODUCT - FRESH FROZEN PLASMA (08/16/2019 1:03 AM PDT) + + + + + + | Component | Value | Ref Range | Performed | Pathologist | | | | | At | Signature | + + + + + + | PRODUCT | LIQUID PLASMA, | | [facility] | | | DESCRIPTION | IRRADIATED | | LABORATORY | | | | | | SERVICES, | | | | | | TRANSFUSION | | | | | | MEDICINE | | + + + + + + | PRODUCT | [id number] | | [facility] | | | UNIT # | | | LABORATORY | | | | | | SERVICES, | | | | | | TRANSFUSION | | | | | | MEDICINE | | + + + + + + | UNIT ABO | A | | [facility] | | | | | | LABORATORY | | | | | | SERVICES, | | | | | | TRANSFUSION | | | | | | MEDICINE | | + + + + + + | UNIT RH | POS | | [facility] | | | | | | LABORATORY | | | | | | SERVICES, | | | | | | TRANSFUSION | | | | | | MEDICINE | | + + + + + + | STATUS OF | Returned to Blood Bank | | [facility] | | | UNIT | | | LABORATORY | | | | | | SERVICES, | | | | | | TRANSFUSION | | | | | | MEDICINE | | + + + + + + | EXPIRATION | [id number] | | [facility] | | | DATE | | | LABORATORY | | | | | | SERVICES, | | | | | | TRANSFUSION | | | | | | MEDICINE | | + + + + + + | BLOOD TYPE | 6200 | | [facility] | | | BARCODE | | | LABORATORY | | | | | | SERVICES, | | | | | | TRANSFUSION | | | | | | MEDICINE | | + + + + + + | BLOOD | [id number] | | [facility] | | | PRODUCT | | | LABORATORY | | | CODE | | | SERVICES, | | | | | | TRANSFUSION | | | | | | MEDICINE | | + + + + + + + + | Specimen | + + | | + + + + + + + | Performing | Address | City/State/Zipcode | Phone Number | | Organization | | | | + + + + + | [facility] | [address] | [place] [address] | | | SERVICES, | [address] | | | | TRANSFUSION MEDICINE | | | | + + + + + PRODUCT - RED CELLS LEUKOREDUCED (08/16/2019 1:03 AM PDT) + + + + + + | Component | Value | Ref Range | Performed | Pathologist | | | | | At | Signature | + + + + + + | PRODUCT | -1 RED BLOOD CELLS | | [facility] | | | DESCRIPTION | LEUKOREDUCED | | LABORATORY | | | | | | SERVICES, | | | | | | TRANSFUSION | | | | | | MEDICINE | | + + + + + + | PRODUCT | [id number] | | [facility] | | | UNIT # | | | LABORATORY | | | | | | SERVICES, | | | | | | TRANSFUSION | | | | | | MEDICINE | | + + + + + + | UNIT ABO | A | | [facility] | | | | | | LABORATORY | | | | | | SERVICES, | | | | | | TRANSFUSION | | | | | | MEDICINE | | + + + + + + | UNIT RH | POS | | [facility] | | | | | | LABORATORY | | | | | | SERVICES, | | | | | | TRANSFUSION | | | | | | MEDICINE | | + + + + + + | STATUS OF | Presumed Transfused | | [facility] | | | UNIT | | | LABORATORY | | | | | | SERVICES, | | | | | | TRANSFUSION | | | | | | MEDICINE | | + + + + + + | EXPIRATION | [id number] | | [facility] | | | DATE | | | LABORATORY | | | | | | SERVICES, | | | | | | TRANSFUSION | | | | | | MEDICINE | | + + + + + + | BLOOD TYPE | 6200 | | [facility] | | | BARCODE | | | LABORATORY | | | | | | SERVICES, | | | | | | TRANSFUSION | | | | | | MEDICINE | | + + + + + + | BLOOD | [id number] | | [facility] | | | PRODUCT | | | LABORATORY | | | CODE | | | SERVICES, | | | | | | TRANSFUSION | | | | | | MEDICINE | | + + + + + + + + | Specimen | + + | | + + + + + + + | Performing | Address | City/State/Zipcode | Phone Number | | Organization | | | | + + + + + | [facility] | [address] | [place] [address] | | | SERVICES, | [address] | | | | TRANSFUSION MEDICINE | | | | + + + + + PRODUCT - RED CELLS LEUKOREDUCED (08/16/2019 1:03 AM PDT) + + + + + + | Component | Value | Ref Range | Performed | Pathologist | | | | | At | Signature | + + + + + + | PRODUCT | -1 RED BLOOD CELLS | | [facility] | | | DESCRIPTION | LEUKOREDUCED | | LABORATORY | | | | | | SERVICES, | | | | | | TRANSFUSION | | | | | | MEDICINE | | + + + + + + | PRODUCT | [id number] | | [facility] | | | UNIT # | | | LABORATORY | | | | | | SERVICES, | | | | | | TRANSFUSION | | | | | | MEDICINE | | + + + + + + | UNIT ABO | A | | [facility] | | | | | | LABORATORY | | | | | | SERVICES, | | | | | | TRANSFUSION | | | | | | MEDICINE | | + + + + + + | UNIT RH | POS | | [facility] | | | | | | LABORATORY | | | | | | SERVICES, | | | | | | TRANSFUSION | | | | | | MEDICINE | | + + + + + + | STATUS OF | Returned to Blood Bank | | [facility] | | | UNIT | | | LABORATORY | | | | | | SERVICES, | | | | | | TRANSFUSION | | | | | | MEDICINE | | + + + + + + | EXPIRATION | [id number] | | [facility] | | | DATE | | | LABORATORY | | | | | | SERVICES, | | | | | | TRANSFUSION | | | | | | MEDICINE | | + + + + + + | BLOOD TYPE | 6200 | | [facility] | | | BARCODE | | | LABORATORY | | | | | | SERVICES, | | | | | | TRANSFUSION | | | | | | MEDICINE | | + + + + + + | BLOOD | [id number] | | [facility] | | | PRODUCT | | | LABORATORY | | | CODE | | | SERVICES, | | | | | | TRANSFUSION | | | | | | MEDICINE | | + + + + + + + + | Specimen | + + | | + + + + + + + | Performing | Address | City/State/Zipcode | Phone Number | | Organization | | | | + + + + + | [facility] | [address] | [place] [address] | | | SERVICES, | [address] | | | | TRANSFUSION MEDICINE | | | | + + + + + PRODUCT - RED CELLS LEUKOREDUCED (08/16/2019 1:03 AM PDT) + + + + + + | Component | Value | Ref Range | Performed | Pathologist | | | | | At | Signature | + + + + + + | PRODUCT | -1 RED BLOOD CELLS | | [facility] | | | DESCRIPTION | LEUKOREDUCED | | LABORATORY | | | | | | SERVICES, | | | | | | TRANSFUSION | | | | | | MEDICINE | | + + + + + + | PRODUCT | [id number] | | [facility] | | | UNIT # | | | LABORATORY | | | | | | SERVICES, | | | | | | TRANSFUSION | | | | | | MEDICINE | | + + + + + + | UNIT ABO | A | | [facility] | | | | | | LABORATORY | | | | | | SERVICES, | | | | | | TRANSFUSION | | | | | | MEDICINE | | + + + + + + | UNIT RH | POS | | [facility] | | | | | | LABORATORY | | | | | | SERVICES, | | | | | | TRANSFUSION | | | | | | MEDICINE | | + + + + + + | STATUS OF | Returned to Blood Bank | | [facility] | | | UNIT | | | LABORATORY | | | | | | SERVICES, | | | | | | TRANSFUSION | | | | | | MEDICINE | | + + + + + + | EXPIRATION | [id number] | | [facility] | | | DATE | | | LABORATORY | | | | | | SERVICES, | | | | | | TRANSFUSION | | | | | | MEDICINE | | + + + + + + | BLOOD TYPE | 6200 | | [facility] | | | BARCODE | | | LABORATORY | | | | | | SERVICES, | | | | | | TRANSFUSION | | | | | | MEDICINE | | + + + + + + | BLOOD | [id number] | | [facility] | | | PRODUCT | | | LABORATORY | | | CODE | | | SERVICES, | | | | | | TRANSFUSION | | | | | | MEDICINE | | + + + + + + + + | Specimen | + + | | + + + + + + + | Performing | Address | City/State/Zipcode | Phone Number | | Organization | | | | + + + + + | [facility] | [address] | [place] [address] | | | SERVICES, | [address] | | | | TRANSFUSION MEDICINE | | | | + + + + + PRODUCT - RED CELLS LEUKOREDUCED (08/16/2019 1:03 AM PDT) + + + + + + | Component | Value | Ref Range | Performed | Pathologist | | | | | At | Signature | + + + + + + | PRODUCT | -1 RED BLOOD CELLS | | [facility] | | | DESCRIPTION | [facility] | | LABORATORY | | | | | | SERVICES, | | | | | | TRANSFUSION | | | | | | MEDICINE | | + + + + + + | PRODUCT | [id number] | | [facility] | | | UNIT # | | | LABORATORY | | | | | | SERVICES, | | | | | | TRANSFUSION | | | | | | MEDICINE | | + + + + + + | UNIT A[facility] | A | | [facility] | | | | | | LABORATORY | | | | | | SERVICES, | | | | | | TRANSFUSION | | | | | | MEDICINE | | + + + + + + | UNIT [facility] | POS | | [facility] | | | | | | LABORATORY | | | | | | SERVICES, | | | | | | TRANSFUSION | | | | | | MEDICINE | | + + + + + + | STATUS OF | Returned to Blood Bank | | [facility] | | | UNIT | | | LABORATORY | | | | | | SERVICES, | | | | | | TRANSFUSION | | | | | | MEDICINE | | + + + + + + | EXPIRATION | [phone] | | [facility] | | | DATE | | | LABORATORY | | | | | | SERVICES, | | | | | | TRANSFUSION | | | | | | MEDICINE | | + + + + + + | BLOOD TYPE | 6200 | | [facility] | | | BARCODE | | | LABORATORY | | | | | | SERVICES, | | | | | | TRANSFUSION | | | | | | MEDICINE | | + + + + + + | BLOOD | [id number] | | [facility] | | | PRODUCT | | | LABORATORY | | | CODE | | | SERVICES, | | | | | | TRANSFUSION | | | | | | MEDICINE | | + + + + + + + + | Specimen | + + | | + + + + + + + | Performing | Address | City/State/Zipcode | Phone Number | | Organization | | | | + + + + + | [facility] | [address] | [place] [address] | | | SERVICES, | [address] | | | | TRANSFUSION MEDICINE | | | | + + + + + PRODUCT - RED CELLS LEUKOREDUCED (08/16/2019 1:03 AM PDT) + + + + + + | Component | Value | Ref Range | Performed | Pathologist | | | | | At | Signature | + + + + + + | PRODUCT | -1 RED BLOOD CELLS | | [facility] | | | DESCRIPTION | [facility] | | LABORATORY | | | | | | SERVICES, | | | | | | TRANSFUSION | | | | | | MEDICINE | | + + + + + + | PRODUCT | [id number] | | [facility] | | | UNIT # | | | LABORATORY | | | | | | SERVICES, | | | | | | TRANSFUSION | | | | | | MEDICINE | | + + + + + + | UNIT A[facility] | A | | [facility] | | | | | | LABORATORY | | | | | | SERVICES, | | | | | | TRANSFUSION | | | | | | MEDICINE | | + + + + + + | UNIT [facility] | POS | | [facility] | | | | | | LABORATORY | | | | | | SERVICES, | | | | | | TRANSFUSION | | | | | | MEDICINE | | + + + + + + | STATUS OF | Returned to Blood Bank | | [facility] | | | UNIT | | | LABORATORY | | | | | | SERVICES, | | | | | | TRANSFUSION | | | | | | MEDICINE | | + + + + + + | EXPIRATION | [phone] | | [facility] | | | DATE | | | LABORATORY | | | | | | SERVICES, | | | | | | TRANSFUSION | | | | | | MEDICINE | | + + + + + + | BLOOD TYPE | 6200 | | [facility] | | | BARCODE | | | LABORATORY | | | | | | SERVICES, | | | | | | TRANSFUSION | | | | | | MEDICINE | | + + + + + + | BLOOD | [id number] | | [facility] | | | PRODUCT | | | LABORATORY | | | CODE | | | SERVICES, | | | | | | TRANSFUSION | | | | | | MEDICINE | | + + + + + + + + | Specimen | + + | | + + + + + + + | Performing | Address | City/State/Zipcode | Phone Number | | Organization | | | | + + + + + | [facility] | [address] | [place] [address] | | | SERVICES, | [address] | | | | TRANSFUSION MEDICINE | | | | + + + + + PRODUCT - RED CELLS LEUKOREDUCED (08/16/2019 1:03 AM PDT) + + + + + + | Component | Value | Ref Range | Performed | Pathologist | | | | | At | Signature | + + + + + + | PRODUCT | -1 RED BLOOD CELLS | | [facility] | | | DESCRIPTION | LEUKOREDUCED | | LABORATORY | | | | | | SERVICES, | | | | | | TRANSFUSION | | | | | | MEDICINE | | + + + + + + | PRODUCT | [id number] | | [facility] | | | UNIT # | | | LABORATORY | | | | | | SERVICES, | | | | | | TRANSFUSION | | | | | | MEDICINE | | + + + + + + | UNIT ABO | A | | [facility] | | | | | | LABORATORY | | | | | | SERVICES, | | | | | | TRANSFUSION | | | | | | MEDICINE | | + + + + + + | UNIT RH | POS | | [facility] | | | | | | LABORATORY | | | | | | SERVICES, | | | | | | TRANSFUSION | | | | | | MEDICINE | | + + + + + + | STATUS OF | Returned to Blood Bank | | [facility] | | | UNIT | | | LABORATORY | | | | | | SERVICES, | | | | | | TRANSFUSION | | | | | | MEDICINE | | + + + + + + | EXPIRATION | [id number] | | [facility] | | | DATE | | | LABORATORY | | | | | | SERVICES, | | | | | | TRANSFUSION | | | | | | MEDICINE | | + + + + + + | BLOOD TYPE | [id number] | | [facility] | | | BARCODE | | | LABORATORY | | | | | | SERVICES, | | | | | | TRANSFUSION | | | | | | MEDICINE | | + + + + + + | BLOOD | [id number] | | [facility] | | | PRODUCT | | | LABORATORY | | | CODE | | | SERVICES, | | | | | | TRANSFUSION | | | | | | MEDICINE | | + + + + + + + + | Specimen | + + | | + + + + + + + | Performing | Address | City/State/Zipcode | Phone Number | | Organization | | | | + + + + + | [facility] | [address] | [place] [address] | | | SERVICES, | [address] | | | | TRANSFUSION MEDICINE | | | | + + + + + PRODUCT - RED CELLS LEUKOREDUCED (08/16/2019 1:03 AM PDT) + + + + + + | Component | Value | Ref Range | Performed | Pathologist | | | | | At | Signature | + + + + + + | PRODUCT | -1 RED BLOOD CELLS | | [facility] | | | DESCRIPTION | LEUKOREDUCED | | LABORATORY | | | | | | SERVICES, | | | | | | TRANSFUSION | | | | | | MEDICINE | | + + + + + + | PRODUCT | [id number] | | [facility] | | | UNIT # | | | LABORATORY | | | | | | SERVICES, | | | | | | TRANSFUSION | | | | | | MEDICINE | | + + + + + + | UNIT ABO | A | | [facility] | | | | | | LABORATORY | | | | | | SERVICES, | | | | | | TRANSFUSION | | | | | | MEDICINE | | + + + + + + | UNIT RH | POS | | [facility] | | | | | | LABORATORY | | | | | | SERVICES, | | | | | | TRANSFUSION | | | | | | MEDICINE | | + + + + + + | STATUS OF | Returned to Blood Bank | | [facility] | | | UNIT | | | LABORATORY | | | | | | SERVICES, | | | | | | TRANSFUSION | | | | | | MEDICINE | | + + + + + + | EXPIRATION | [id number] | | [facility] | | | DATE | | | LABORATORY | | | | | | SERVICES, | | | | | | TRANSFUSION | | | | | | MEDICINE | | + + + + + + | BLOOD TYPE | [id number] | | [facility] | | | BARCODE | | | LABORATORY | | | | | | SERVICES, | | | | | | TRANSFUSION | | | | | | MEDICINE | | + + + + + + | BLOOD | [id number] | | [facility] | | | PRODUCT | | | LABORATORY | | | CODE | | | SERVICES, | | | | | | TRANSFUSION | | | | | | MEDICINE | | + + + + + + + + | Specimen | + + | | + + + + + + + | Performing | Address | City/State/Zipcode | Phone Number | | Organization | | | | + + + + + | [facility] | [address] | [place] [address] | | | SERVICES, | [address] | | | | TRANSFUSION MEDICINE | | | | + + + + + VANESSA-CASEY ABL, POC (08/16/2019 12:23 AM PDT) + + + + + + | Component | Value | Ref Range | Performed | Pathologist | | | | | At | Signature | + + + + + + | PH | 7.25 (L) | 7.37 - 7.44 | [facility] - | | | ARTERIAL, | | | [facility] | | | POC | | | [facility] | | | | | | OF CARE | | | | | | TESTS | | + + + + + + | PO2 | 260 (H) | 72 - 104 mmHg | [facility] - | | | ARTERIAL, | | | [facility] | | | POC | | | [facility] | | | | | | OF CARE | | | | | | TESTS | | + + + + + + | PCO2 | 48 (H) | 32 - 43 mmHg | [facility] - | | | ARTERIAL, | | | [facility] | | | POC | | | [facility] | | | | | | OF CARE | | | | | | TESTS | | + + + + + + | TOTAL | 7.2 (L) | 13.5 - 17.5 | [facility] - | | | HEMOGLOBIN, | | g/dL | [facility] | | | POC | | | [facility] | | | | | | OF CARE | | | | | | TESTS | | + + + + + + | O2 SAT | 100.2 (H) | 92.0 - 98.0 % | [facility] - | | | ARTERIAL, | | | [facility] | | | POC | | | [facility] | | | | | | OF CARE | | | | | | TESTS | | + + + + + + | OXYHEMOGLOB | 96.3 | 94.0 - 100 % | [facility] - | | | IN, POC | | | [facility] | | | | | | [facility] | | | | | | OF CARE | | | | | | TESTS | | + + + + + + | HEMATOCRIT, | 22.2 (L) | 41.0 - 53.0 % | [facility] - | | | POC | | | [facility] | | | | | | [facility] | | | | | | OF CARE | | | | | | TESTS | | + + + + + + | POTASSIUM, | 4.5 | 3.4 - 5.0 | [facility] - | | | POC | | mmol/L | [facility] | | | | | | [facility] | | | | | | OF CARE | | | | | | TESTS | | + + + + + + | SODIUM, POC | 135 | 134 - 143 | [facility] - | | | | | mmol/L | [facility] | | | | | | [facility] | | | | | | OF CARE | | | | | | TESTS | | + + + + + + | GLENN | 1.25 | 1.14 - 1.32 | [facility] - | | | IONIZED CA, | | mmol/L | [facility] | | | POC | | | [facility] | | | | | | OF CARE | | | | | | TESTS | | + + + + + + | CHLORIDE, | 106 | 97 - 108 mmol/L | [facility] - | | | POC | | | [facility] | | | | | | [facility] | | | | | | OF CARE | | | | | | TESTS | | + + + + + + | GLUCOSE, | 89 | 70 - 99 mg/dL | [facility] - | | | POC | | | [facility] | | | | | | [facility] | | | | | | OF CARE | | | | | | TESTS | | + + + + + + | HCO3 | 21.3 | 21 - 28 mmol/L | [facility] - | | | ARTERIAL, | | | [facility] | | | POC | | | [facility] | | | | | | OF CARE | | | | | | TESTS | | + + + + + + | BASE EXCESS | -5.9 | | [facility] - | | | ARTERIAL, | | | [facility] | | | POC | | | [facility] | | | | | | OF CARE | | | | | | TESTS | | + + + + + + | LACTATE | 0.9 | 0.5 - 1.6 | [facility] - | | | ARTERIAL, | | mmol/L | [facility] | | | POC | | | [facility] | | | | | | OF CARE | | | | | | TESTS | | + + + + + + | METHEMOGLOB | 1.7 | 0.0 - 1.9 % | [facility] - | | | IN, POC | | | [facility] | | | | | | [facility] | | | | | | OF CARE | | | | | | TESTS | | + + + + + + | PAT TEMP | 37.0 | | [facility] - | | | ART, POC | | | [facility] | | | | | | [facility] | | | | | | OF CARE | | | | | | TESTS | | + + + + + + + + | Specimen | + + | Blood - Blood | | (substance) | + + + + + + + | Performing | Address | City/State/Zipcode | Phone Number | | Organization | | | | + + + + + | [facility] | [address] | [place], [place] | | | [place] [facility] | [facility] | [address] | | | TESTS | | | | + + + + + THROMBELASTOGRAPH, POC (08/16/2019 12:20 AM PDT) + + + + + + | Component | Value | Ref Range | Performed | Pathologist | | | | | At | Signature | + + + + + + | R - | 7.7 | 5 - 10 Minutes | [facility] | | | CITRATED | | | [place] | | | | | | [facility] | | | | | | OF CARE | | | | | | TESTS | | + + + + + + | K - | 2.5 | 1 - 3 Minutes | [facility] | | | CITRATED | | | [place] | | | | | | [facility] | | | | | | OF CARE | | | | | | TESTS | | + + + + + + | ANGLE - | 66.4 | 53 - 72 Degrees | [facility] - | | | CITRATED | | | [place] | | | | | | [facility] | | | | | | OF CARE | | | | | | TESTS | | + + + + + + | MAXIMUM | 43.0 (A) | 55 - 70 mm | [facility] - | | | [facility] - | | | [facility] | | | CITRATED | | | [facility] | | | | | | OF CARE | | | | | | TESTS | | + + + + + + | LY 30 | 0.5 | 0 - 8 % | [facility] - | | | | | | [place] | | | | | | [facility] | | | | | | OF CARE | | | | | | TESTS | | + + + + + + | CLOT INDEX | -3.4 (A) | -3 - 3 | [facility] - | | | | | | [facility] | | | | | | [facility] [place]INT | | | | | | OF CARE | | | | | | TESTS | | + + + + + + + + | Specimen | + + | Blood - Blood | | (substance) | + + + + + | Impressions | Performed At | + + + | Attending: I have reviewed the TEG that was ordered. Please see the | [facility] - | | TEG Analysis report that is scanned into the medical record | [facility], | | Impression of Test result: MA between 41-45 mm indicates very low | POINT OF CARE | | platelet function Clinical correlation suggested Seth | TESTS | | MD Siddharth Gang Head Saw Operator Trauma, Critical Care & Acute Care | | | Surgery | | + + + + + + + + | Performing | Address | City/State/Zipcode | Phone Number | | Organization | | | | + + + + + | [facility] | [address] | [place], [place] | | | [facility] | [address] | [address] | | | TESTS | | | | + + + + + THROMBELASTOGRAPH, POC (08/16/2019 12:20 AM PDT) + + + + + + | Component | Value | Ref Range | Performed | Pathologist | | | | | At | Signature | + + + + + + | R - | 7.2 | 5 - 10 Minutes | [facility] | | | CIT[facility]ATED | | | [facility] | | | | | | [facility]INT | | | | | | OF CARE | | | | | | TESTS | | + + + + + + | K - | 1.5 | 1 - 3 Minutes | [facility] | | | CITRATED | | | [place] | | | | | | [facility] | | | | | | OF CARE | | | | | | TESTS | | + + + + + + | ANGLE - | 74.2 (A) | 53 - 72 Degrees | [facility] | | | CITRATED | | | [place] | | | | | | [facility] | | | | | | OF CARE | | | | | | TESTS | | + + + + + + | MAXIMUM | 45.5 (A) | 50 - 70 mm | [facility] - | | | [facility] - | | | [facility] | | | CITRATED | | | [facility] | | | | | | OF CARE | | | | | | TESTS | | + + + + + + | LY 30 | 0.0 | 0 - 8 % | [facility] - | | | | | | [facility] | | | | | | [facility] [place]INT | | | | | | OF CARE | | | | | | TESTS | | + + + + + + | CLOT INDEX | -1.8 | -3 - 3 | [facility] - | | | | | | [facility] | | | | | | [facility]INT | | | | | | OF CARE | | | | | | TESTS | | + + + + + + + + | Specimen | + + | Blood - Blood | | (substance) | + + + + + | Impressions | Performed At | + + + | Attending: I have reviewed the TEG that was ordered. Please see the | [facility] - | | TEG Analysis report that is scanned into the medical record | [facility], | | Impression of Test result: Angle greater than 72 degrees indicates | POINT OF CARE | | rapid clot formation MA between 46-54 mm indicates low platelet | TESTS | | function Clinical correlation suggested Seth Messina MD | | | Gang Head Saw Operator Trauma, Critical Care & Acute Care Surgery | | | | | + + + + + + + + | Performing | Address | City/State/Zipcode | Phone Number | | Organization | | | | + + + + + | [facility] | [address] | [place], [place] | | | [facility] | [address] | [address] | | | TESTS | | | | + + + + + THROMBELASTOGRAPH, POC (08/16/2019 12:20 AM PDT) + + + + + + | Component | Value | Ref Range | Performed | Pathologist | | | | | At | Signature | + + + + + + | R - | 5.4 | 5 - 10 Minutes | [facility] | | | CIT[facility]ATED | | | [place] | | | | | | [facility] | | | | | | OF CARE | | | | | | TESTS | | + + + + + + | K - | 1.4 | 1 - 3 Minutes | [facility] | | | CITRATED | | | [place] | | | | | | [facility] | | | | | | OF CARE | | | | | | TESTS | | + + + + + + | ANGLE - | 75.6 (A) | 53 - 72 Degrees | [facility] | | | CITRATED | | | [place] | | | | | | [facility] | | | | | | OF CARE | | | | | | TESTS | | + + + + + + | MAXIMUM | 51.6 | 50 - 70 mm | [facility] - | | | [facility] - | | | [facility] | | | CITRATED | | | [facility] | | | | | | OF CARE | | | | | | TESTS | | + + + + + + | LY 30 | 3.9 | 0 - 8 % | [facility] - | | | | | | [place] | | | | | | [facility] | | | | | | OF CARE | | | | | | TESTS | | + + + + + + | CLOT INDEX | 0.2 | -3 - 3 | [facility] - | | | | | | [place] | | | | | | [facility] | | | | | | OF CARE | | | | | | TESTS | | + + + + + + + + | Specimen | + + | Blood - Blood | | (substance) | + + + + + | Impressions | Performed At | + + + | Attending: I have reviewed the TEG that was ordered. Please see the | [facility] - | | TEG Analysis report that is scanned into the medical record | [facility], | | Impression of Test result: Angle greater than 72 degrees indicates | POINT OF CARE | | rapid clot formation Clinical correlation suggested | TESTS | | Seth Messina MD Gang Head Saw Operator Trauma, Critical Care & Acute | | | Care Surgery | | + + + + + + + + | Performing | Address | City/State/Zipcode | Phone Number | | Organization | | | | + + + + + | [facility] | [address] | [place], [place] | | | [facility] [place] | [facility] | [phone] | | | TESTS | | | | + + + + + THROMBELASTOGRAPH, POC (08/16/2019 12:20 AM PDT) + + + + + + | Component | Value | Ref Range | Performed | Pathologist | | | | | At | Signature | + + + + + + | R - | 6.8 | 5 - 10 Minutes | [facility] | | | CITRATED | | | [place] | | | | | | [facility] | | | | | | OF CARE | | | | | | TESTS | | + + + + + + | K - | 1.9 | 1 - 3 Minutes | [facility] - | | | CITRATED | | | [place] | | | | | | [facility] | | | | | | OF CARE | | | | | | TESTS | | + + + + + + | ANGLE - | 71.1 | 53 - 72 Degrees | [facility] - | | | CITRATED | | | [facility] | | | | | | [facility] | | | | | | OF CARE | | | | | | TESTS | | + + + + + + | MAXIMUM | 42.0 (A) | 50 - 70 mm | [facility] - | | | [facility] - | | | [facility] | | | CITRATED | | | [facility] | | | | | | OF CARE | | | | | | TESTS | | + + + + + + | LY 30 | 2.0 | 0 - 8 % | [facility] - | | | | | | [facility] | | | | | | [facility] | | | | | | OF CARE | | | | | | TESTS | | + + + + + + | CLOT INDEX | -2.4 | -3 - 3 | [facility] - | | | | | | [facility] | | | | | | [facility] | | | | | | OF CARE | | | | | | TESTS | | + + + + + + + + | Specimen | + + | Blood - Blood | | (substance) | + + + + + | Impressions | Performed At | + + + | Attending: I have reviewed the TEG that was ordered. Please see the | [facility] - | | TEG Analysis report that is scanned into the medical record | [facility], | | Impression of Test result: MA between 41-45 mm indicates very low | POINT OF CARE | | platelet function Clinical correlation suggested Seth | TESTS | | MD Siddharth Gang Head Saw Operator Trauma, Critical Care & Acute Care | | | Surgery | | + + + + + + + + | Performing | Address | City/State/Zipcode | Phone Number | | Organization | | | | + + + + + | [facility] | [address] | [place], [place] | | | [facility] | [facility] | [address] | | | TESTS | | | | + + + + + CAPILLARY BLOOD GLUCOSE (NO CHG), POC (08/15/2019 9:24 PM PDT) + +-------+ + + + | Component | Value | Ref Range | Performed | Pathologist | | | | | At | Signature | + +-------+ + + + | BLOOD | 83 | 70 - 99 mg/dL | [facility] - | | | GLUCOSE, | | | [place] | | | POC | | | [place], POINT | | | | | | OF CARE | | | | | | TESTS | | + +-------+ + + + + + | Specimen | + + | Blood | + + + + + + + | Performing | Address | City/State/Zipcode | Phone Number | | Organization | | | | + + + + + | [facility] | [address] | [place], [place] | | | [facility] [place] [facility] | [address] | [address] | | | TESTS | | | | + + + + + DRUG SCREEN,URINE;W/CONFIRM (08/15/2019 6:06 PM PDT) + + + + + + | Component | Value | Ref Range | Performed | Pathologist | | | | | At | Signature | + + + + + + | AMPHETAMINE | Negative | Negative | [facility] | | | , URINE | | | LABORATORY | | | | | | SERVICES, | | | | | | CORE | | + + + + + + | AMPHETAMINE | <125 | <1,000 ng/mL | [facility] | | | CONC, | | | LABORATORY | | | URINE | | | SERVICES, | | | | | | CORE | | + + + + + + | BARBITURATE | Negative | Negative | [facility] | | | S, URINE | | | LABORATORY | | | | | | SERVICES, | | | | | | CORE | | + + + + + + | BARBITURATE | <20 | <200 ng/mL | [facility] | | | S CONC, | | | LABORATORY | | | URINE | | | SERVICES, | | | | | | CORE | | + + + + + + | BENZODIAZEP | Negative | Negative | [facility] | | | SHIRLEY, URINE | | | LABORATORY | | | | | | SERVICES, | | | | | | CORE | | + + + + + + | BENZODIAZEP | <30 | <200 ng/mL | [facility] | | | INE CONC, | | | LABORATORY | | | URINE | | | SERVICES, | | | | | | CORE | | + + + + + + | Cocaine, | Negative | Negative | [facility] | | | Urine | | | LABORATORY | | | | | | SERVICES, | | | | | | CORE | | + + + + + + | COCAINE | <35 | <300 ng/mL | [facility] | | | CONC, URINE | | | LABORATORY | | | | | | SERVICES, | | | | | | CORE | | + + + + + + | OPIATES, | Negative | Negative | [facility] | | | URINE | | | LABORATORY | | | | | | SERVICES, | | | | | | CORE | | + + + + + + | OPIATE | <50 | <300 ng/mL | [facility] | | | CONC, URINE | | | LABORATORY | | | | | | SERVICES, | | | | | | CORE | | + + + + + + | CANNABINOID | Negative | Negative | [facility] | | | S, URINE | | | LABORATORY | | | | | | SERVICES, | | | | | | CORE | | + + + + + + | CANNABINOID | <15 | <50 ng/mL | [facility] | | | CONC, | | | LABORATORY | | | URINE | | | SERVICES, | | | | | | CORE | | + + + + + + | METHADONE, | Negative | Negative | [facility] | | | URINE | | | LABORATORY | | | | | | SERVICES, | | | | | | CORE | | + + + + + + | METHADONE | <107 | <300 ng/mL | [facility] | | | CONC, URINE | | | LABORATORY | | | | | | SERVICES, | | | | | | CORE | | + + + + + + | OXYCODONE, | Negative | Negative | [facility] | | | URINE | | | LABORATORY | | | | | | SERVICES, | | | | | | CORE | | + + + + + + + + | Specimen | + + | Urine - Urine | | (substance) | + + + + + | Narrative | Performed At | + + + | Minimum drug concentration yielding a positive urine drug screen | [facility] | | Amphetamines >=1000 ng/mL | LABORATORY | | Barbiturates >=200 ng/mL | SERVICES, CORE | | Benzodiazepine >=200 ng/mL Cocaine | | | >=300 ng/mL Methadone | | | >=300 ng/mL Opiates >=300 ng/mL | | | Oxycodone >=100 ng/mL THC - | | | Cannabinoid >=50 ng/mL Screening results are not | | | confirmed by alternate method unless requested. Results are to be | | | used for medical (i.e. treatment) purposes only. The reported | | | result is an estimated concentration of drug that can be detected by | | | the method of analysis. Amphetamine Note: Benzphetamine and | | | Selegiline may produce positive results with this assay. Opiates | | | Notes: Therapeutic doses of Ofloxcin (Floxin) or Levofloxacin | | | (Levaquin) may produce positive results with this assay. The | | | substaces being tested for must include Amphetamines, Benzodiazepines, | | | Cocaine, Alcohol, Cannabinoids, Opiates. | | + + + + + + + + | Performing | Address | City/State/Zipcode | Phone Number | | Organization | | | | + + + + + | [facility] | [address] | [place] [address] | | | SERVICES, CORE | [address] | | | + + + + + MAUDE TINSLEY (08/15/2019 6:06 PM PDT) + + + + + + | Component | Value | Ref Range | Performed | Pathologist | | | | | At | Signature | + + + + + + | COLOR(UR) | Yudy | | [facility] | | | | | | LABORATORY | | | | | | SERVICES, | | | | | | CORE | | + + + + + + | APPEARANCE | Clear | | [facility] | | | | | | LABORATORY | | | | | | SERVICES, | | | | | | CORE | | + + + + + + | GLUCOSE(UR) | Negative | Negative, 50.0 | [facility] | | | | | mg/dL | LABORATORY | | | | | | SERVICES, | | | | | | CORE | | + + + + + + | PROTEIN(LAB | Negative | Negative, 30.0 | [facility] | | | ) | | mg/dL | LABORATORY | | | | | | SERVICES, | | | | | | CORE | | + + + + + + | BILIRUBIN | Negative | Negative | [facility] | | | | | | LABORATORY | | | | | | SERVICES, | | | | | | CORE | | + + + + + + | UROBILINOGE | <2.0 | <2.0 mg/dL | [facility] | | | N | | | LABORATORY | | | | | | SERVICES, | | | | | | CORE | | + + + + + + | PH(UR) | 5.0 | 5.0 - 8.0 | [facility] | | | | | | LABORATORY | | | | | | SERVICES, | | | | | | CORE | | + + + + + + | BLOOD | Moderate (A) | Negative | [facility] | | | | | | LABORATORY | | | | | | SERVICES, | | | | | | CORE | | + + + + + + | KETONES | Negative | Negative mg/dL | [facility] | | | | | | LABORATORY | | | | | | SERVICES, | | | | | | CORE | | + + + + + + | NITRITES | Negative | Negative | [facility] | | | | | | LABORATORY | | | | | | SERVICES, | | | | | | CORE | | + + + + + + | LEUKOCYTE | Negative | Negative | [facility] | | | ESTERASE | | | LABORATORY | | | | | | SERVICES, | | | | | | CORE | | + + + + + + | SPECIFIC | 1.011Comment: Specific | 1.005 - 1.030 | [facility] | | | GRAVITY | Spooner performed by | | LABORATORY | | | | refractometry | | SERVICES, | | | | | | CORE | | + + + + + + + + | Specimen | + + | Urine - Urinary | | bladder structure | | (body structure) | + + + + + + + | Performing | Address | City/State/Zipcode | Phone Number | | Organization | | | | + + + + + | [facility] | [address] | [place] [address] | | | SERVICES, CORE | [address] | | | + + + + + URINE, MICROSCOPIC EXAM (08/15/2019 6:06 PM PDT) + +---------+ + + + | Component | Value | Ref Range | Performed | Pathologist | | | | | At | Signature | + +---------+ + + + | RED CELLS | 1 | 0 - 3 /hpf | [facility] | | | | | | LABORATORY | | | | | | SERVICES, | | | | | | CORE | | + +---------+ + + + | WHITE CELLS | <1 | 0 - 5 /hpf | [facility] | | | | | | LABORATORY | | | | | | SERVICES, | | | | | | CORE | | + +---------+ + + + | BACTERIA | None | None /hpf | [facility] | | | | | | LABORATORY | | | | | | SERVICES, | | | | | | CORE | | + +---------+ + + + | YEAST (LAB) | None | None /hpf | [facility] | | | | | | LABORATORY | | | | | | SERVICES, | | | | | | CORE | | + +---------+ + + + | SQUAMOUS | None | None, Few /hpf | [facility] | | | EPITHELIAL | | | LABORATORY | | | | | | SERVICES, | | | | | | CORE | | + +---------+ + + + | MUCOUS | None | None, Few /hpf | [facility] | | | | | | LABORATORY | | | | | | SERVICES, | | | | | | CORE | | + +---------+ + + + | NON-SQUAMOU | Few (A) | None /hpf | [facility] | | | S EPITH | | | LABORATORY | | | | | | SERVICES, | | | | | | CORE | | + +---------+ + + + | HYALINE | 0 | 0 - 2 /lpf | [facility] | | | CASTS | | | LABORATORY | | | | | | SERVICES, | | | | | | CORE | | + +---------+ + + + | GRANULAR | 0 | 0 - 2 /lpf | [facility] | | | CASTS | | | LABORATORY | | | | | | SERVICES, | | | | | | CORE | | + +---------+ + + + | CELLULAR | 0 | <=0 /lpf | [facility] | | | CASTS | | | LABORATORY | | | | | | SERVICES, | | | | | | CORE | | + +---------+ + + + | TRIPLE P04 | None | None, Few /hpf | [facility] | | | CRYSTALS | | | LABORATORY | | | | | | SERVICES, | | | | | | CORE | | + +---------+ + + + | CALCIUM | None | None, Few /hpf | [facility] | | | OXALATE | | | LABORATORY | | | RAMÓN | | | SERVICES, | | | | | | CORE | | + +---------+ + + + | URIC ACID | None | None, Few /hpf | [facility] | | | [facility]ALS | | | LABORATORY | | | | | | SERVICES, | | | | | | CORE | | + +---------+ + + + | AMORPHOUS | None | None, Few /hpf | [facility] | | | CRYSTALS | | | LABORATORY | | | | | | SERVICES, | | | | | | CORE | | + +---------+ + + + + + | Specimen | + + | Urine - Urinary | | bladder structure | | (body structure) | + + + + + + + | Performing | Address | City/State/Zipcode | Phone Number | | Organization | | | | + + + + + | [facility] | [address] | [place] [address] | | | SERVICES, CORE | [address] | | | + + + + + ETHYL GLUCURONIDE QUANT, URINE (08/15/2019 6:05 PM PDT) + + + + + [...] + + + + | ETHYL | 131Comment: INTERPRETIVE | ng/mL | [facility] | | | SULFATE, | INFORMATION: Ethyl | | REG UNIV | | | URINE | Glucuronide and Ethyl | | PTH - [facility] | | | CONFIRMATIO | Sulfate, | | | | | N | | | | | | | [...] | | | | | determined by [employer] | | | | | | Laboratories. See | | | | | | Compliance Statement B: | | | | | | [employer]CSPerformed | | | | | | by [employer],[address] | | | | | | [facility] | | | | | | [id number] | | | | | | [phone].[employer]. | | | | | | comHarley MD, | | | | | | Lab. Director | | | | + + + + + + + + | Specimen | + + | Urine - Urinary | | bladder structure | | (body structure) | + + + + + + + | Performing | Address | City/State/Zipcode | Phone Number | | Organization | | | | + + + + + | [facility] | [address] | [place], [place] | | | UNIV P[facility] - [facility] | | [id number] | | + + + + + 12 LEAD ECG (08/15/2019 5:29 PM PDT) + + + + + + | Component | Value | Ref Range | Performed | Pathologist | | | | | At | Signature | + + + + + + | VENTRICULAR | 65 | bpm | [facility] | | | RATE | | | OF | | | | | | CARDIOLOGY | | + + + + + + | ATRIAL RATE | 63 | ms | [facility] | | | | | | OF | | | | | | CARDIOLOGY | | + + + + + + | P-R | 69 | ms | [facility] | | | INTERVAL | | | OF | | | | | | CARDIOLOGY | | + + + + + + | P AXIS | 74 | deg | [facility] | | | | | | OF | | | | | | CARDIOLOGY | | + + + + + + | QRS | 146 | ms | [facility] | | | DURATION | | | OF | | | | | | CARDIOLOGY | | + + + + + + | QT | 697 | ms | [facility] | | | | | | OF | | | | | | CARDIOLOGY | | + + + + + + | FRANCE-BELLA | 724 | ms | [facility] | | | | | | OF | | | | | | CARDIOLOGY | | + + + + + + | R AXIS | 42 | deg | [facility] | | | | | | OF | | | | | | CARDIOLOGY | | + + + + + + | T AXIS | 7 | deg | [facility] | | | | | | OF | | | | | | CARDIOLOGY | | + + + + + + | ECG | Sinus rhythm | | [facility] | | | IMPRESSION | | | OF | | | | | | CARDIOLOGY | | + + + + + + | ECG | Short AR interval | | [facility] | | | IMPRESSION | | | OF | | | | | | CARDIOLOGY | | + + + + + + | ECG | Right bundle branch | | [facility] | | | IMPRESSION | block | | OF | | | | | | CARDIOLOGY | | + + + + + + | 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 | [place], [place] | | | CARDIOLOGY | [address] | [address] | | + + + + + CAPILLARY BLOOD GLUCOSE (NO CHG), POC (08/15/2019 4:56 PM PDT) + +-------+ + + + | Component | Value | Ref Range | Performed | Pathologist | | | | | At | Signature | + +-------+ + + + | BLOOD | 84 | 70 - 99 mg/dL | [facility] - | | | GLUCOSE, | | | [facility] | | | POC | | | [facility] | | | | | | OF CARE | | | | | | TESTS | | + +-------+ + + + + + | Specimen | + + | Blood | + + + + + + + | Performing | Address | City/State/Zipcode | Phone Number | | Organization | | | | + + + + + | [facility] | [address] | [place], [place] | | | [facility] | [address] | [address] | | | TESTS | | | | + + + + + X-RAY CHEST 2 VIEW (08/15/2019 3:45 PM PDT) + + | Specimen | + + | | + + + + + | Narrative | Performed At | + + + | EXAM: CHEST 2 VIEWS HISTORY: Pre-Op Liver Transplant | [facility] | | COMPARISON: July 26, 2019 FINDINGS: Weighted feeding tube | RADIOLOGY VOICE | | terminates in the gastric cardia. The cardiomediastinal contour is | RECOGNITION 2 | | enlarged. There is mild pulmonary edema. The lungs are otherwise | | | clear. Trace right pleural effusion is unchanged. There is no | | | pneumothorax. There is no pulmonary edema. Chronic right | | | acromioclavicular separation is unchanged. A low thoracic compression | | | fracture is unchanged. IMPRESSION: Prepyloric positioning of | | | the weighted feeding tube. Mild pulmonary edema. I have | | | personally reviewed the images and, if necessary, edited the report. I | | | agree with the report as now presented. Final signature: Ramana Wong | | | MD David 08/15/2019 7:45 PM Preliminary: Ramana Hernandez MD | | | Dictation initiated: Ramana Hernandez MD 08/15/2019 7:43 PM | | + + + + + | Procedure Note | + + | Service Account, [employer] [facility] In Interface - 08/15/2019 7:46 PM PDT EXAM: CHEST 2 | | VIEWS HISTORY: Pre-Op Liver Transplant COMPARISON: July 26, 2019 FINDINGS: Weighted | | feeding tube terminates in the gastric cardia. The cardiomediastinal contour is | | enlarged. There is mild pulmonary edema. The lungs are otherwise clear. Trace right | | pleural effusion is unchanged. There is no pneumothorax. There is no pulmonary edema. | | Chronic right acromioclavicular separation is unchanged. A low thoracic compression | | fracture is unchanged. IMPRESSION: Prepyloric positioning of the weighted feeding tube. | | Mild pulmonary edema. I have personally reviewed the images and, if necessary, edited | | the report. I agree with the report as now presented. Final signature: Ramana Hernandez MD | | 08/15/2019 7:45 PM Preliminary: Ramana Hernandez MD Dictation initiated: Ramana Wong | Darren Hernandez MD 08/15/2019 7:43 PM | |IMPRESSION: | | | |Prepyloric positioning of the weighted feeding tube. | | | |Mild pulmonary edema. | | | |I have personally reviewed the images and, if necessary, edited the report. I agree with e report as now presented. | | | |Final signature: Ramana Hernandez MD 08/15/2019 7:45 PM | |Preliminary: Ramana Hernandez MD | |Dictation initiated: Ramana Hernandez MD 08/15/2019 7:43 PM | + + + +---------+ + + | Performing | Address | City/State/Zipcode | Phone Number | | Organization | | | | + +---------+ + + | [facility] | | | | | VOICE RECOGNITION 2 | | | | + +---------+ + + CBC AND AUTO DIFF (08/15/2019 3:04 PM PDT) + + + + + + | Component | Value | Ref Range | Performed | Pathologist | | | | | At | Signature | + + + + + + | WHITE CELL | 5.67 | 3.50 - 10.80 | [facility] | | | COUNT | | K/cu mm | LABORATORY | | | | | | SERVICES, | | | | | | CORE | | + + + + + + | RED CELL | 1.99 (L) | 4.50 - 6.00 | [facility] | | | COUNT | | M/cu mm | LABORATORY | | | | | | SERVICES, | | | | | | CORE | | + + + + + + | HEMOGLOBIN | 6.8 (L) | 13.5 - 17.5 | [facility] | | | | | g/dL | LABORATORY | | | | | | SERVICES, | | | | | | CORE | | + + + + + + | HEMATOCRIT | 21.1 (L) | 41.0 - 53.0 % | [facility] | | | | | | LABORATORY | | | | | | SERVICES, | | | | | | CORE | | + + + + + + | MCV | 106.0 (H) | 80.0 - 100.0 fL | [facility] | | | | | | LABORATORY | | | | | | SERVICES, | | | | | | CORE | | + + + + + + | MCHC | 32.2 | 32.0 - 36.0 | [facility] | | | | | g/dL | LABORATORY | | | | | | SERVICES, | | | | | | CORE | | + + + + + + | RDW SD | 76.3 (H) | 35.1 - 46.3 fL | [facility] | | | | | | LABORATORY | | | | | | SERVICES, | | | | | | CORE | | + + + + + + | PLATELET | 60 (L) | 150 - 400 K/cu | [facility] | | | COUNT | | mm | LABORATORY | | | | | | SERVICES, | | | | | | CORE | | + + + + + + | MPV | 11.2 | 9.7 - 12.3 fL | [facility] [...] + + + + | NEUTROPHIL | 73.0 (H) | 50.0 - 70.0 % | [facility] | | | % | | | LABORATORY | | | | | | SERVICES, | | | | | | CORE | | + + + + + + | LYMPHOCYTE | 14.3 (L) | 18.0 - 42.0 % | [facility] | | | % | | | LABORATORY | | | | | | SERVICES, | | | | | | CORE | | + + + + + + | MONOCYTE % | 10.2 (H) | 3.5 - 9.0 % | [facility] | | | | | | LABORATORY | | | | | | SERVICES, | | | | | | CORE | | + + + + + + | EOS % | 1.6 | 1.0 - 3.0 % | [facility] [...] + + + + | IG% | 0.5 | 0.0 - 1.0 % | [facility] | | | | | | LABORATORY | | | | | | SERVICES, | | | | | | CORE | | + + + + + + | NEUTROPHIL | 4.14 | 1.80 - 7.70 | [facility] | | | # | | K/cu mm | LABORATORY | | | | | | SERVICES, | | | | | | CORE | | + + + + + + | LYMPHOCYTE | 0.81 (L) | 1.00 - 4.80 | [facility] | | | # | | K/cu mm | LABORATORY | | | | | | SERVICES, | | | | | | CORE | | + + + + + + | MONOCYTE # | 0.58 | 0.10 - 0.90 | [facility] | [...] | + + + + + | [facility] | [address] | [place] [address] | | | SERVICES, CORE | [address] | | | + + + + + ANTIBODY SCREEN (08/15/2019 3:04 PM PDT) + + + + + + | Component | Value | Ref Range | Performed | Pathologist | | | | | At | Signature | + + + + + + | Antibody | Negative | | [facility] | | | Screen | | | LABORATORY | | | | | | SERVICES, | | | | | | TRANSFUSION | | | | | | MEDICINE | | + + + + + + + + | Specimen | + + | Blood - Blood | | (substance) | + + + + + + + | Performing | Address | City/State/Zipcode | Phone Number | | Organization | | | | + + + + + | [facility] | [address] | [place] [address] | | | SERVICES, | [address] | | | | TRANSFUSION MEDICINE | | | | + + + + + ABO & RH TYPE (08/15/2019 3:04 PM PDT) + + + + + + | Component | Value | Ref Range | Performed | Pathologist | | | | | At | Signature | + + + + + + | ABO Group | A | | [facility] | | | | | | LABORATORY | | | | | | SERVICES, | | | | | | TRANSFUSION | | | | | | MEDICINE | | + + + + + + | Rh Type | Positive | | [facility] | | | | | | LABORATORY | | | | | | SERVICES, | | | | | | TRANSFUSION | | | | | | MEDICINE | | + + + + + + + + | Specimen | + + | Blood - Blood | | (substance) | + + + + + + + | Performing | Address | City/State/Zipcode | Phone Number | | Organization | | | | + + + + + | [facility] | [address] | [place] [address] | | | SERVICES, | [address] | | | | TRANSFUSION MEDICINE | | | | + + + + + HCV/HIV/HBV, DUARTE - TRANSPLANT ONLY (08/15/2019 3:04 PM PDT) + + + + + + | Component | Value | Ref Range | Performed | Pathologist | | | | | At | Signature | + + + + + + | HCV DUARTE | Negative | Negative | [facility] | | | | | | REFERENCE | | | | | | LAB | | + + + + + + | HIV-1 DUARTE | Negative | Negative | [facility] | | | | | | REFERENCE | | | | | | LAB | | + + + + + + | HBV DUARTE | Negative | Negative | [facility] | | | | | | REFERENCE | | | | | | LAB | | + + + + + + + + | Specimen | + + | Blood - Blood | | (substance) | + + + + + | Narrative | Performed At | + + + | Testing | [facility] | | performed by:[id number] [place] [address], | REFERENCE LAB | | [place] [address] | | |[place]VIN[place]A Linares [address] | | + + + + + + + + | Performing | Address | City/State/Zipcode | Phone Number | | Organization | | | | + + + + + | [facility] | | | | + + + + + | [facility] | see below | | | + + + + + NICOTINE AND METABOLITES CONFIRM/QUANT, SERUM (08/15/2019 3:03 PM PDT) + + + + + + | Component | Value | Ref Range | Performed | Pathologist | | | | | At | Signature | + + + + + + | 3-OH-COTINI | <2 | ng/mL | [facility] | | | NE | | | REG UNIV | | | | | | PTH - INTFC | | + + + + + + | NICOTINE | <2Comment: Consistent | ng/mL | [facility] | | | (SERUM) | with abstinence from | | REG UNIV | | | | nicotine-containingprodu | | PTH - INTFC | | | | cts for at least 1 | | | | | | week.INTERPRETIVE | | | | | | INFORMATION: Nicotine | | | | | | and Metabolites, | | | | | | | | | | | | Serum or Plasma, | | | | | | | | | | | | | | | | | | Quantitative | | | | | | Methodology: | | | | | | Quantitative Liquid | | | | | | Chromatography-Tandem | | | | | | Mass Spectrometry | | | | | | Positive cutoff: 2 ng/mL | | | | | | For medical purposes | | | | | | only; not valid for | | | | | | forensic use. This test | | | | | | is designed to evaluate | | | | | | recent use of | | | | | | nicotine-containing | | | | | | products. Passive and | | | | | | active exposure cannot | | | | | | be discriminated | | | | | | definitively, although a | | | | | | cutoff of 10 ng/mL | | | | | | [...] | | | | | drug absorption, or | | | | | | limitations of testing. | | | | | | This test cannot | | | | | | distinguish between use | | | | | | of tobacco and purified | | | | | | nicotine products. The | | | | | | concentration value must | | | | | | be greater than or | | | | | | equal to the cutoff to | | | | | | be reported as positive. | | | | | | Test developed and | | | | | | characteristics | | | | | | determined by [facility] | | | | | | Laboratories. See | | | | | | Compliance Statement B: | | | | | | [email or web address] | | | | | | by [facility],[address] | | | | | | [address], [facility],[place] | | | | | | [address] | | | | | | [phone]. | | | | | | com, Harley Coates MD, | | | | | | Lab. Director | | | | + + + + + + | COTININE | <2 | ng/mL | [facility] | | | | | | REG UNIV | | [...] [facility] | [address] | [place], [place] | | | UNIV PTH - INTFC | | [address] | | + + + + + HIV AB/AG SCREENING W/REFLEX TO CONFIRM (08/15/2019 3:03 PM PDT) + + + + + + | Component | Value | Ref Range | Performed | Pathologist | | | | | At | Signature | + + + + + + | HIV-1,2 | Negative | Negative | [facility] | | | AB/HIV-1 | | | LABORATORY | | | P24 AG | | | SERVICES, | | | SCREEN | | | SPECIAL IMM | | | | | | + [place] | | + + + + + + + + | Specimen | + + | Blood - Blood | | (substance) | + + + + + | Narrative | Performed At | + + + | HIV-1 p24 Ag and HIV-1,2 Ab not detected. The performance of the | [facility] | | GEAR SHAPER SET UP OPERATOR HIV Combo test, with or without confirmation, was not | LABORATORY | | tested in pediatric patients less than 2 years of age. [facility] | SERVICES, | | guidelines recommend virologic assays (i.e. HIV 1 VIRAL LOAD) that | SPECIAL IMM + | | directly detect HIV for diagnosis of HIV infection in infants younger | [place] | | than 2 years. | | + + + + + + + + | Performing | Address | City/State/Zipcode | Phone Number | | Organization | | | | + + + + + | [facility] | [address] | [place] [address] | | | SERVICES, SPECIAL | [address] | | | | IMM + [place] | | | | + + + + + HEPATITIS B SURFACE AG W/REFLEX CONFIRMATION IF INDETERMINATE RESULTS (08/15/2019 3:03 PM PDT) + + + + + + | Component | Value | Ref Range | Performed | Pathologist | | | | | At | Signature | + + + + + + | HEPATITIS B | | | [facility] | | | SURFACE | | | LABORATORY | | | AG, SERUM | | | SERVICES, | | | | | | CORE | | + + + + + + | HEP B | Not Detected | Not Detected | [facility] | | | SURFACE AG | | | LABORATORY | | | [...] + | [facility] | [address] | [place] [address] | | | SERVICES, CORE | [address] | | | + + + + + HEPATITIS B SURFACE AB QUAL, SERUM (08/15/2019 3:03 PM PDT) + + + + + + | Component | Value | Ref Range | Performed | Pathologist | | | | | At | Signature | + + + + + + | HEP B | Not Detected | Not Detected | [facility] | | | SURFACE AB | | | LABORATORY | | | QUAL | | | SERVICES, | | | [...] + | [facility] | [address] | [place] [address] | | | SERVICES, CORE | [address] | | | + + + + + HEPATITIS B CORE AB, SERUM (08/15/2019 3:03 PM PDT) + + + + + + | Component | Value | Ref Range | Performed | Pathologist | | | | | At | Signature | + + + + + + | HEP B CORE | Not Detected | Not Detected | [facility] | | | AB | | | LABORATORY | | | [...] | + + + + + | [facility] | [address] | [place] [address] | | | SERVICES, CORE | [address] | | | + + + + + TOXOPLASMA IGG AB, SERUM (08/15/2019 3:03 PM PDT) + + + + + + | Component | Value | Ref Range | Performed | Pathologist | | | | | At | Signature | + + + + + + | TOXOPLASMA | <3.0Comment: | IU/mL | [facility] | | | IGG AB | INTERPRETIVE | | REG UNIV | | | | INFORMATION: Toxoplasma | | PTH - INTFC | | | | Ab, IgG 7.1 IU/mL or | | | | | | less....... Not Detected | | | | | | 7.2-8.7 IU/mL | | | | | | .......... | | | | | | Indeterminate-Repeat | | | | | | testing in | | | | | | | | | | | | 10-14 days may be | | | | | | helpful. 8.8 IU/mL or | | | | | | greater ... Detected The | | | | | | best evidence for | | | | | | current infection is a | | | | | | significant change on | | | | | | two appropriately timed | | | | | | specimens, where both | | | | | | tests are done in the | | | | | | same laboratory at the | | | | | | same time. This test | | | | | | should not be used for | | | | | | blood donor screening, | | | | | | associated re-entry | | | | | | protocols, or for | | | | | | screening Human Cell, | | | | | | Tissues and Cellular and | | | | | | Tissue-Based Products | | | | | | (HCT/P). The magnitude | | | | | | of the measured result | | | | | | is not indicative of the | | | | | | amount of antibody | | | | | | present.Performed by | | | | | | [facility],[address] | | | | | | [address], [facility],[place] | | | | | | [address] | | | | | | [phone] | | | | | | Harley [...] | + + + + + | [facility] | [address] | [place], [place] | | | UNIV PTH - INTFC | | [address] | | + + + + + MOE VALDEZ VIRUS PANEL, SERUM (08/15/2019 3:03 PM PDT) + + + + + + | Component | Value | Ref Range | Performed | Pathologist | | | | | At | Signature | + + + + + + | MOE | 179.0 (H)Comment: | 0.0 - 21.9 U/mL | [facility] | | | VALDEZ VIRUS | INTERPRETIVE | | REG UNIV | | | AB VCA IGG | INFORMATION: | | PTH - INTFC | | | | Moe-Valdez Virus | | | | | | Antibody to | | | | | | | | | | | | Viral Capsid Antigen, | | | | | | IgG 17.9 U/mL or | | | | | | less.......Not Detected | | | | | | 18.0-21.9 | | | | | | U/mL..........Indetermin | | | | | | ate - Repeat testing in | | | | | | | | | | | | 10-14 | | | | | | days may be helpful. | | | | | | 22.0 U/mL or | | | | | | greater....Detected | | | | + + + + + + | AB TO VCA | <10.0Comment: | 0.0 - 43.9 U/mL | [facility] | | | IGM | INTERPRETIVE | | REG UNIV | | | | INFORMATION: | | PTH - INTFC | | | | Moe-Valdez Virus | | | | | | Antibody to | | | | | | | | | | | | Viral Capsid Antigen, | | | | | | IgM 35.9 U/mL or | | | | | | less.......Not Detected | | | | | | 36.0-43.9 | | | | | | U/mL..........Indetermin | | | | | | ate - Repeat testing in | | | | | | | | | | | | 10-14 days | | | | | | may be helpful. 44.0 | | | | | | U/mL or | | | | | | greater....Detected | | | | + + + + + + | AB TO | 80.4 (H)Comment: | 0.0 - 21.9 U/mL | [facility] | | | NUCLEAR AG | INTERPRETIVE | | REG UNIV | | | | INFORMATION: | | PTH - INTFC | | | | Moe-Valdez Virus | | | | | | Antibody to | | | | | | | | | | | | Nuclear Antigen, IgG | | | | | | 17.9 U/mL or | | | | | | less.......Not Detected | | | | | | 18.0-21.9 | | | | | | U/mL..........Indetermin | | | | | | ate - Repeat testing in | | | | | | | | | | | | 10-14 days | | | | | | may be helpful. 22.0 | | | | | | U/mL or | | | | | | greater....Detected | | | | + + + + + + | AB TO EARLY | 36.6 (H)Comment: | 0.0 - 10.9 U/mL | [facility] | | | AG | Cross-reactivity between | | REG UNIV | | | | EBV EA(D) and Human | | PTH - INTFC | | | | Immunodeficiency Virus | | | | | | (HIV), Hepatitis A, B, | | | | | | and C has been | | | | | | documented.INTERPRETIVE | | | | | | INFORMATION: | | | | | | Moe-Valdez Virus | | | | | | Antibody to | | | | | | | | | | | | Early D Antigen | | | | | | (EA-D), IgG 8.9 U/mL | | | | | | or less........Not | | | | | | Detected 9.0-10.9 | | | | | | U/mL...........Indetermi | | | | | | amauri - Repeat testing in | | | | | | | | | | | | 10-14 | | | | | | days may be helpful. | | | | | | 11.0 U/mL or | | | | | | greater....DetectedPerfo | | | | | | rmed by [facility] | | | | | | [facility],[address] | | | | | | [place], [place] [address] | | | | | | [phone]. | | | | | | Harley [...] [facility] | [address] | [place], [place] | | | UNIV PTH - INTFC | | [address] | | + + + + + CMV IGG AND IGM ABS, SERUM (08/15/2019 3:03 PM PDT) + + + + + + | Component | Value | Ref Range | Performed | Pathologist | | | | | At | Signature | + + + + + + | CMV IGG AB | >10.00Comment: | U/mL | [facility] | | | | INTERPRETIVE | | REG UNIV | | | | INFORMATION: | | PTH - INTFC | | | | Cytomegalovirus | | | | | | Antibody, IgG 0.59 | | | | | | U/mL or less......... | | | | | | Not Detected 0.6 - | | | | | | 0.69 U/mL........... | | | | | | Indeterminate-Repeat | | | | | | testing in | | | | | | | | | | | | 10-14 days may be | | | | | | helpful. 0.70 U/mL or | | | | | | greater...... Detected | | | | | | In immunocompromised | | | | | | patients, CMV serology | | | | | | (IgG or IgM antibody | | | | | | titers) may not be | | | | | | reliable and may be | | | | | | misleading in the | | | | | | diagnosis of acute or | | | | | | reactivation CMV | | | | | | disease. The preferred | | | | | | method for diagnosis is | | | | | | culture of virus and/or | | | | | | demonstration of viral | | | | | | antigen in peripheral | | | | | | white cells (buffy | | | | | | coat), bronchoalveolar | | | | | | lavage (BAL) cells, or | | | | | | tissue biopsies. This | | | | | | test should not be used | | | | | | for blood donor | | | | | | screening, associated | | | | | | re-entry protocols, or | | | | | | for screening Human | | | | | | Cell, Tissues and | | | | | | Cellular and | | | | | | Tissue-Based Products | | | | | | (HCT/P). The best | | | | | | evidence for current | | | | | | infection is a | | | | | | significant change on | | | | | | two appropriately timed | | | | | | specimens, where both | | | | | | tests are done in the | | | | | | same laboratory at the | | | | | | same time. | | | | + + + + + + | CMV IGM AB | 13.0Comment: | <=29.9 AU/mL | [facility] | | | | INTERPRETIVE | | REG UNIV | | | | INFORMATION: | | PTH - INTFC | | | | Cytomegalovirus | | | | | | Antibody, IgM 29.9 | | | | | | AU/mL or Less ....... | | | | | | Not Detected 30.0-34.9 | | | | | | AU/mL........... | | | | | | Indeterminate-Repeat | | | | | | testing | | | | | | | | | | | | in 10-14 days may be | | | | | | helpful. 35.0 AU/mL or | | | | | | Greater .... | | | | | | Detected-IgM antibody to | | | | | | CMV | | | | | | | | | | | | detected which may | | | | | | indicate a | | | | | | | | | | | | current or recent | | | | | | infection. | | | | | | | | | | | | However, low | | | | | | levels of IgM | | | | | | | | | | | | antibodies may | | | | | | occasionally | | | | | | | | | | | | persist for more | | | | | | than 12 | | | | | | | | | | | | months | | | | | | post-infection. CMV | | | | | | serology is not useful | | | | | | for the evaluation of | | | | | | active or reactivated | | | | | | infection in | | | | | | immunocompromised | | | | | | patients. Molecular | | | | | | diagnostic tests (i.e. | | | | | | PCR)are preferred in | | | | | | these cases. This test | | | | | | should not be used for | | | | | | blood donor screening, | | | | | | associated re-entry | | | | | | protocols, or for | | | | | | screening Human Cell, | | | | | | Tissues and Cellular and | | | | | | Tissue-Based Products | | | | | | (HCT/P).Performed by | | | | | | [facility],[address] | | | | | | [place] | | | | | | [address] | | | | | | [phone] | | | | | | Harley [...] [facility] | [address] | [place], [place] | | | UNIV PTH - INTFC | | [address] | | + + + + + FERRITIN (08/15/2019 3:03 PM PDT) + + + + + + | Component | Value | Ref Range | Performed | Pathologist | | | | | At | Signature | + + + + + + | FERRITIN | 3,007 (H)Comment: Male | 50 - 200 ng/mL [...] + | [facility] | [address] | [place] [address] | | | SERVICES, CORE | [address] | | | + + + + + IRON AND TIBC (08/15/2019 3:03 PM PDT) + +---------+ + + + | Component | Value | Ref Range | Performed | Pathologist | | | | | At | Signature | + +---------+ + + + | IRON | 346 (H) | 50 - 170 ug/dL | [facility] | | | | | | LABORATORY | | | | | | SERVICES, | | | | | | CORE | | + +---------+ + + + | IRON BIND | 423 | 240 - 450 ug/dL | [facility] | | | CAP | | | LABORATORY | | | | | | SERVICES, | | | | | | CORE | | + +---------+ + + + | % | 82 (H) | 20 - 50 % | [...] + | [facility] | [address] | [place] [address] | | | SERVICES, CORE | [address] | | | + + + + + ETHANOL (ALCOHOL), BLOOD (08/15/2019 3:03 PM PDT) + +-------+ + + + | Component | Value | Ref Range | Performed | Pathologist | | | | | At | Signature | + +-------+ + + + | ETHANOL | <10 | <10 mg/dL | [facility] | | | (ALCOHOL) | | | LABORATORY | | | [...] | + + + + + | [facility] | [address] | [place] [address] | | | SERVICES, CORE | [address] | | | + + + + + AMYLASE, PLASMA (08/15/2019 3:03 PM PDT) + +-------+ + + + | Component | Value | Ref Range | Performed | Pathologist | | | | | At | Signature | + +-------+ + + + | AMYLASE,EZEQUIEL | 34 | 25 - 115 U/L | [facility] | | | [facility] | | | LABORATORY | | | [...] | + + + + + | [facility] | [address] | [place] [address] | | | SERVICES, CORE | [address] | | | + + + + + LDH TOTAL, PLASMA (08/15/2019 3:03 PM PDT) + +---------+ + + + | Component | Value | Ref Range | Performed | Pathologist | | | | | At | Signature | + +---------+ + + + | LD TOTAL, | 293 (H) | <=250 U/L | [facility] | | | PLASMA | | | LABORATORY | | | | | | SERVICES, | | | | | | CORE | | + +---------+ + + + | LD CMNT | No Hemo | | [facility] [...] + | [facility] | [address] | [place] [address] | | | SERVICES, CORE | [address] | | | + + + + + BILIRUBIN DIRECT (08/15/2019 3:03 PM PDT) + +---------+ + + + | Component | Value | Ref Range | Performed | Pathologist | | | | | At | Signature | + +---------+ + + + | BILIRUBIN | 4.6 (H) | 0.0 - 0.3 mg/dL | [...] | + + + + + | [facility] | [address] | [place] [address] | | | SERVICES, CORE | [address] | | | + + + + + URIC ACID, PLASMA (08/15/2019 3:03 PM PDT) + + + + + + | Component | Value | Ref Range | Performed | Pathologist | | | | | At | Signature | + + + + + + | URIC ACID, | 11.5 (H) | 3.7 - 8.0 mg/dL | [...] + | [facility] | [address] | [place] [address] | | | SERVICES, CORE | [address] | | | + + + + + MAGNESIUM, PLASMA (08/15/2019 3:03 PM PDT) + +-------+ + + + | Component | Value | Ref Range | Performed | Pathologist | | | | | At | Signature | + +-------+ + + + | MAGNESIUM,P | 2.2 | 1.6 - 2.6 mg/dL | [facility] [...] + | [facility] | [address] | [place] [address] | | | SERVICES, CORE | [address] | | | + + + + + COMPLETE METABOLIC SET (NA,K,CL,CO2,BUN,CREAT,GLUC,CA,AST,ALT,BILI TOTAL,ALK PHOS,ALB,PROT TOTAL) (08/15/2019 3:03 PM PDT) + + + + + + | Component | Value | Ref Range | Performed | Pathologist | | | | | At | Signature | + + + + + + | GLUCOSE, | 103 (H) | 70 - 99 mg/dL | [facility] | | | PLASMA | | | LABORATORY | | | (LAB) | | | SERVICES, | | | | | | CORE | | + + + + + + | BUN, PLASMA | 56 (H) | 6 - 20 mg/dL | [facility] | | | (LAB) | | | LABORATORY | | | | | | SERVICES, | | | | | | CORE | | + + + + + + | CREATININE | 1.12 | 0.70 - 1.30 | [facility] | | | PLASMA | | mg/dL | LABORATORY | | | (LAB) | | | SERVICES, | | | | | | CORE | | + + + + + + | EGFR | >60 | >60 mL/min | [facility] | | | - | | | LABORATORY | | | TURKISH | | | SERVICES, | | | | | | CORE | | + + + + + + | EGFR NON | >60 | >60 mL/min | [facility] | | | -JARRED | | | LABORATORY | | | RICAN | | | SERVICES, | | | | | | CORE | | + + + + + + | SODIUM, | 135 (L) | 136 - 145 | [facility] | | | PLASMA | | mmol/L | LABORATORY | | | (LAB) | | | SERVICES, | | | | | | CORE | | + + + + + + | POTASSIUM, | 4.5 | 3.4 - 5.0 | [facility] | [...] + + + + | BILIRUBIN | 11.5 (H) | 0.3 - 1.2 mg/dL | [facility] | | | TOTAL | | | LABORATORY | | | | | | SERVICES, | | | | | | CORE | | + + + + + + | TOTAL | 6.7 | 6.4 - 8.2 g/dL | [facility] | | | PROTEIN, | | | LABORATORY | | | PLASMA | | | SERVICES, | | | (LAB) | | | CORE | | + + + + + + | ALBUMIN, | 3.0 (L) | 3.5 - 4.7 g/dL | [facility] | | | PLASMA | | | LABORATORY | | | (LAB) | | | SERVICES, | | | | | | CORE | | + + + + + + | ALK PHOS | 250 (H) | 53 - 128 U/L | [facility] | | | | | | LABORATORY | | | | | | SERVICES, | | | | | | CORE | | + + + + + + | AST(SGOT) | 99 (H) | <=41 U/L | [facility] | | | | | | LABORATORY | | | | | | SERVICES, | | | | | | CORE | | + + + + + + | ALT (SGPT) | 55 | <=60 U/L | [facility] | | [...] + + + + | ANION | 8 | 4 - 11 mmol/L | [facility] [...] MDRD equation recommended by the National | [facility] | | Kidney Disease Education Program. Estimated [...] | + + + + + | [facility] [employer] | [address] | [place] [address] | | | SERVICES, CORE | [address] | | | + + + + + LIT FLOW HLA II AB AG ID, BLOOD (08/15/2019 3:02 PM PDT) + + | Specimen | + + | Blood - Blood | | (substance) | + + + + + + + | Performing | Address | City/State/Zipcode | Phone Number | | Organization | | | | + + + + + | [facility] - | [address] | [place] [address] | | | IMMUNOGENETICS/TRANS | [address] | | | | [facility] | | | | + + + + + LIT FLOW HLA I AB AG ID, BLOOD (08/15/2019 3:02 PM PDT) + + + + + + | Component | Value | Ref Range | Performed | Pathologist | | | | | At | Signature | + + + + + + | LABEL ONLY | Please see lab report | | [facility] - | | | - LIT | for result. | | [facility] | | | | | | ICS/TRANSPL | | | | | | ANT | | | | | | LABORATORY | | + + + + + + + + | Specimen | + + | Blood - Blood | | (substance) | + + + + + + + | Performing | Address | City/State/Zipcode | Phone Number | | Organization | | | | + + + + + | [facility] | [address] | [place] [address] | | | IMMUNOGENETICS/TRANS | [address] | | | | [facility] LAB[facility] | | | | + + + + + ALPHA-FETOPROTEIN TUMOR MARKER, SERUM (08/15/2019 3:02 PM PDT) + +-------+ + + + | Component | Value | Ref Range | Performed | Pathologist | | | | | At | Signature | + +-------+ + + + | AFP TUMOR | 5.4 | <=9.0 ng/mL | [facility] | | | MARKER | | | LABORATORY | | | SERUM, [facility] | | | SERVICES, | | | [...] + | [facility] | [address] | [place] [address] | | | SERVICES, CORE | [address] | | | + + + + + HEPATITIS C VIRUS W/CONFIRMATION (08/15/2019 3:02 PM PDT) + + + + + + | Component | Value | Ref Range | Performed | Pathologist | | | | | At | Signature | + + + + + + | HEP C AB | Not Detected | Not Detected | [facility] | | | | | [...] + + | [facility] | [address] | [place] [address] | | | SERVICES, CORE | [address] | | | + + + + + FIBRINOGEN (08/15/2019 3:02 PM PDT) + +---------+ + + + | Component | Value | Ref Range | Performed | Pathologist | | | | | At | Signature | + +---------+ + + + | FIBRINOGEN | 141 (L) | 150 - 450 mg/dL | [facility] | | | LEVEL | | | LABORATORY | | | [...] | [facility] | [address] | [place] [address] | | | SERVICES, CORE | [address] | | | + + + + + INR (08/15/2019 3:02 PM PDT) + + + + + + | Component | Value | Ref Range | Performed | Pathologist | | | | | At | Signature | + + + + + + | INR | 3.24 (H) | 0.90 - 1.20 INR | [...] mech. valves (2.5 - 3.5) INR | [facility] | + + + + + + + + | Performing | Address | City/State/Zipcode | Phone Number | | Organization | | | | + + + + + | [facility] | [address] | [place] [address] | | | CLAUDIA, ARTIS | [address] | | | + + + + + THROMBELASTOGRAPH, POC (08/15/2019 3:00 PM PDT) + + + + + + | Component | Value | Ref Range | Performed | Pathologist | | | | | At | Signature | + + + + + + | R - | 12.7 (A) | 5 - 10 Minutes | [facility] - | | | CITRATED | | | [facility] | | | | | | MARIA INES, POINT | | | | | | OF CARE | | | | | | TESTS | | + + + + + + | K - | 2.5 | 1 - 3 Minutes | [facility] - | | | CITRATED | | | [facility] | | | | | | [facility]LEY SPANN | | | | | | OF CARE | | | | | | TESTS | | + + + + + + | ANGLE - | 64.3 | 53 - 72 Degrees | [facility] - | | | CITRATED | | | [facility] | | | | | | MARIA INES POINT | | | | | | OF CARE | | | | | | TESTS | | + + + + + + | LY 30 | 4.9 | 0 - 8 % | [facility] - | | | | | | [facility] | | | | | | [facility]LEY SPANN | | | | | | OF CARE | | | | | | TESTS | | + + + + + + | CLOT INDEX | -7.3 (A) | -3 - 3 | [facility] - | | | | | | [facility] | | | | | | [facility] | | | | | | OF CARE | | | | | | TESTS | | + + + + + + + + | Specimen | + + | Blood - Blood | | (substance) | + + + + + | Impressions | Performed At | + + + | Attending: I have reviewed the TEG that was ordered. Please see the | [facility] - | | TEG Analysis report that is scanned into the medical record | [facility], | | Impression of Test result: R value between 11 - 14 minutes | POINT OF CARE | | indicates low clotting factors K value < 1 minute indicates | TESTS | | rapid clot formation time K values > 3 minutes prolonged clot | | | formation time Angle less than 53 degrees indicates delayed clot | | | formation Angle greater than 72 degrees indicates rapid clot | | | formation MA less than 40mm indicates extremely low platelet | | | function MA between 41-45 mm indicates very low platelet function MA | | | between 46-54 mm indicates low platelet function MA greater than 70 | | | mm indicates platelet hypercoagulability Clinical correlation | | | suggested Seth Messina MD [employer] Operator Trauma, Critical | | | Care & Acute Care Surgery | | + + + + + + + + | Performing | Address | City/State/Zipcode | Phone Number | | Organization | | | | + + + + + | [facility] | [address] | [place], [place] | | | [place] [facility] | [facility] | [address] | | | TESTS | | | | + + + + + PRODUCT - FRESH FROZEN PLASMA (08/15/2019 2:46 PM PDT) + + + + + + | Component | Value | Ref Range | Performed | Pathologist | | | | | At | Signature | + + + + + + | PRODUCT | THAWED APHERESIS PLASMA | | [facility] | | | DESCRIPTION | | | LABORATORY | | | | | | SERVICES, | | | | | | TRANSFUSION | | | | | | MEDICINE | | + + + + + + | PRODUCT | [id number] | | [facility] | | | UNIT # | | | LABORATORY | | | | | | SERVICES, | | | | | | TRANSFUSION | | | | | | MEDICINE | | + + + + + + | UNIT ABO | AB | | [facility] | | | | | | LABORATORY | | | | | | SERVICES, | | | | | | TRANSFUSION | | | | | | MEDICINE | | + + + + + + | UNIT RH | POS | | [facility] | | | | | | LABORATORY | | | | | | SERVICES, | | | | | | TRANSFUSION | | | | | | MEDICINE | | + + + + + + | STATUS OF | Presumed Transfused | | [facility] | | | UNIT | | | LABORATORY | | | | | | SERVICES, | | | | | | TRANSFUSION | | | | | | MEDICINE | | + + + + + + | EXPIRATION | [id number] | | [facility] | | | DATE | | | LABORATORY | | | | | | SERVICES, | | | | | | TRANSFUSION | | | | | | MEDICINE | | + + + + + + | BLOOD TYPE | 8400 | | [facility] | | | BARCODE | | | LABORATORY | | | | | | SERVICES, | | | | | | TRANSFUSION | | | | | | MEDICINE | | + + + + + + | BLOOD | [id number] | | [facility] | | | PRODUCT | | | LABORATORY | | | CODE | | | SERVICES, | | | | | | TRANSFUSION | | | | | | MEDICINE | | + + + + + + + + | Specimen | + + | | + + + + + + + | Performing | Address | City/State/Zipcode | Phone Number | | Organization | | | | + + + + + | [facility] | [address] | [place] [address] | | | SERVICES, | [address] | | | | TRANSFUSION MEDICINE | | | | + + + + + PRODUCT - FRESH FROZEN PLASMA (08/15/2019 2:46 PM PDT) + + + + + + | Component | Value | Ref Range | Performed | Pathologist | | | | | At | Signature | + + + + + + | PRODUCT | LIQUID PLASMA, | | [facility] | | | DESCRIPTION | IRRADIATED | | LABORATORY | | | | | | SERVICES, | | | | | | TRANSFUSION | | | | | | MEDICINE | | + + + + + + | PRODUCT | [id number] | | [facility] | | | UNIT # | | | LABORATORY | | | | | | SERVICES, | | | | | | TRANSFUSION | | | | | | MEDICINE | | + + + + + + | UNIT ABO | A | | [facility] | | | | | | LABORATORY | | | | | | SERVICES, | | | | | | TRANSFUSION | | | | | | MEDICINE | | + + + + + + | UNIT RH | POS | | [facility] | | | | | | LABORATORY | | | | | | SERVICES, | | | | | | TRANSFUSION | | | | | | MEDICINE | | + + + + + + | STATUS OF | Presumed Transfused | | [facility] | | | UNIT | | | LABORATORY | | | | | | SERVICES, | | | | | | TRANSFUSION | | | | | | MEDICINE | | + + + + + + | EXPIRATION | [phone] | | [facility] | | | DATE | | | LABORATORY | | | | | | SERVICES, | | | | | | TRANSFUSION | | | | | | MEDICINE | | + + + + + + | BLOOD TYPE | 6200 | | [facility] | | | BARCODE | | | LABORATORY | | | | | | SERVICES, | | | | | | TRANSFUSION | | | | | | MEDICINE | | + + + + + + | BLOOD | [id number] | | [facility] | | | PRODUCT | | | LABORATORY | | | CODE | | | SERVICES, | | | | | | TRANSFUSION | | | | | | MEDICINE | | + + + + + + + + | Specimen | + + | | + + + + + + + | Performing | Address | City/State/Zipcode | Phone Number | | Organization | | | | + + + + + | [facility] | [address] | [place] [address] | | | SERVICES, | [address] | | | | TRANSFUSION MEDICINE | | | | + + + + + PRODUCT - FRESH FROZEN PLASMA (08/15/2019 2:46 PM PDT) + + + + + + | Component | Value | Ref Range | Performed | Pathologist | | | | | At | Signature | + + + + + + | PRODUCT | LIQUID PLASMA, | | [facility] | | | DESCRIPTION | IRRADIATED | | LABORATORY | | | | | | SERVICES, | | | | | | TRANSFUSION | | | | | | MEDICINE | | + + + + + + | PRODUCT | [id number] | | [facility] | | | UNIT # | | | LABORATORY | | | | | | SERVICES, | | | | | | TRANSFUSION | | | | | | MEDICINE | | + + + + + + | UNIT ABO | A | | [facility] | | | | | | LABORATORY | | | | | | SERVICES, | | | | | | TRANSFUSION | | | | | | MEDICINE | | + + + + + + | UNIT RH | POS | | [facility] | | | | | | LABORATORY | | | | | | SERVICES, | | | | | | TRANSFUSION | | | | | | MEDICINE | | + + + + + + | STATUS OF | Returned to Blood Bank | | [facility] | | | UNIT | | | LABORATORY | | | | | | SERVICES, | | | | | | TRANSFUSION | | | | | | MEDICINE | | + + + + + + | EXPIRATION | [phone] | | [facility] | | | DATE | | | LABORATORY | | | | | | SERVICES, | | | | | | TRANSFUSION | | | | | | MEDICINE | | + + + + + + | BLOOD TYPE | 6200 | | [facility] | | | BARCODE | | | LABORATORY | | | | | | SERVICES, | | | | | | TRANSFUSION | | | | | | MEDICINE | | + + + + + + | BLOOD | [id number] | | [facility] | | | PRODUCT | | | LABORATORY | | | CODE | | | SERVICES, | | | | | | TRANSFUSION | | | | | | MEDICINE | | + + + + + + + + | Specimen | + + | | + + + + + + + | Performing | Address | City/State/Zipcode | Phone Number | | Organization | | | | + + + + + | [facility] | [address] | [place] [address] | | | SERVICES, | [address] | | | | TRANSFUSION MEDICINE | | | | + + + + + PRODUCT - FRESH FROZEN PLASMA (08/15/2019 2:46 PM PDT) + + + + + + | Component | Value | Ref Range | Performed | Pathologist | | | | | At | Signature | + + + + + + | PRODUCT | LIQUID PLASMA, | | [facility] | | | DESCRIPTION | IRRADIATED | | LABORATORY | | | | | | SERVICES, | | | | | | TRANSFUSION | | | | | | MEDICINE | | + + + + + + | PRODUCT | [id number] | | [facility] | | | UNIT # | | | LABORATORY | | | | | | SERVICES, | | | | | | TRANSFUSION | | | | | | MEDICINE | | + + + + + + | UNIT ABO | A | | [facility] | | | | | | LABORATORY | | | | | | SERVICES, | | | | | | TRANSFUSION | | | | | | MEDICINE | | + + + + + + | UNIT RH | POS | | [facility] | | | | | | LABORATORY | | | | | | SERVICES, | | | | | | TRANSFUSION | | | | | | MEDICINE | | + + + + + + | STATUS OF | Presumed Transfused | | [facility] | | | UNIT | | | LABORATORY | | | | | | SERVICES, | | | | | | TRANSFUSION | | | | | | MEDICINE | | + + + + + + | EXPIRATION | [id number] | | [facility] | | | DATE | | | LABORATORY | | | | | | SERVICES, | | | | | | TRANSFUSION | | | | | | MEDICINE | | + + + + + + | BLOOD TYPE | 6200 | | [facility] | | | BARCODE | | | LABORATORY | | | | | | SERVICES, | | | | | | TRANSFUSION | | | | | | MEDICINE | | + + + + + + | BLOOD | [id number] | | [facility] | | | PRODUCT | | | LABORATORY | | | CODE | | | SERVICES, | | | | | | TRANSFUSION | | | | | | MEDICINE | | + + + + + + + + | Specimen | + + | | + + + + + + + | Performing | Address | City/State/Zipcode | Phone Number | | Organization | | | | + + + + + | [facility] | [address] | [place] [address] | | | SERVICES, | [address] | | | | TRANSFUSION MEDICINE | | | | + + + + + PRODUCT - FRESH FROZEN PLASMA (08/15/2019 2:46 PM PDT) + + + + + + | Component | Value | Ref Range | Performed | Pathologist | | | | | At | Signature | + + + + + + | PRODUCT | LIQUID PLASMA, | | [facility] | | | DESCRIPTION | IRRADIATED | | LABORATORY | | | | | | SERVICES, | | | | | | TRANSFUSION | | | | | | MEDICINE | | + + + + + + | PRODUCT | [id number] | | [facility] | | | UNIT # | | | LABORATORY | | | | | | SERVICES, | | | | | | TRANSFUSION | | | | | | MEDICINE | | + + + + + + | UNIT ABO | A | | [facility] | | | | | | LABORATORY | | | | | | SERVICES, | | | | | | TRANSFUSION | | | | | | MEDICINE | | + + + + + + | UNIT RH | POS | | [facility] | | | | | | LABORATORY | | | | | | SERVICES, | | | | | | TRANSFUSION | | | | | | MEDICINE | | + + + + + + | STATUS OF | Returned to Blood Bank | | [facility] | | | UNIT | | | LABORATORY | | | | | | SERVICES, | | | | | | TRANSFUSION | | | | | | MEDICINE | | + + + + + + | EXPIRATION | [phone] | | [facility] | | | DATE | | | LABORATORY | | | | | | SERVICES, | | | | | | TRANSFUSION | | | | | | MEDICINE | | + + + + + + | BLOOD TYPE | 6200 | | [facility] | | | BARCODE | | | LABORATORY | | | | | | SERVICES, | | | | | | TRANSFUSION | | | | | | MEDICINE | | + + + + + + | BLOOD | [id number] | | [facility] | | | PRODUCT | | | LABORATORY | | | CODE | | | SERVICES, | | | | | | TRANSFUSION | | | | | | MEDICINE | | + + + + + + + + | Specimen | + + | | + + + + + + + | Performing | Address | City/State/Zipcode | Phone Number | | Organization | | | | + + + + + | [facility] | [address] | [place] [address] | | | SERVICES, | [address] | | | | TRANSFUSION MEDICINE | | | | + + + + + PRODUCT - RED CELLS LEUKOREDUCED (08/15/2019 2:46 PM PDT) + + + + + + | Component | Value | Ref Range | Performed | Pathologist | | | | | At | Signature | + + + + + + | PRODUCT | -1 RED BLOOD CELLS | | [facility] | | | DESCRIPTION | LEUKOREDUCED | | LABORATORY | | | | | | SERVICES, | | | | | | TRANSFUSION | | | | | | MEDICINE | | + + + + + + | PRODUCT | [id number] | | [facility] | | | UNIT # | | | LABORATORY | | | | | | SERVICES, | | | | | | TRANSFUSION | | | | | | MEDICINE | | + + + + + + | UNIT ABO | A | | [facility] | | | | | | LABORATORY | | | | | | SERVICES, | | | | | | TRANSFUSION | | | | | | MEDICINE | | + + + + + + | UNIT RH | POS | | [facility] | | | | | | LABORATORY | | | | | | SERVICES, | | | | | | TRANSFUSION | | | | | | MEDICINE | | + + + + + + | STATUS OF | Presumed Transfused | | [facility] | | | UNIT | | | LABORATORY | | | | | | SERVICES, | | | | | | TRANSFUSION | | | | | | MEDICINE | | + + + + + + | EXPIRATION | [phone] | | [facility] | | | DATE | | | LABORATORY | | | | | | SERVICES, | | | | | | TRANSFUSION | | | | | | MEDICINE | | + + + + + + | BLOOD TYPE | 6200 | | [facility] | | | BARCODE | | | LABORATORY | | | | | | SERVICES, | | | | | | TRANSFUSION | | | | | | MEDICINE | | + + + + + + | BLOOD | [id number] | | [facility] | | | PRODUCT | | | LABORATORY | | | CODE | | | SERVICES, | | | | | | TRANSFUSION | | | | | | MEDICINE | | + + + + + + + + | Specimen | + + | | + + + + + + + | Performing | Address | City/State/Zipcode | Phone Number | | Organization | | | | + + + + + | [facility] | [address] | [place] [address] | | | SERVICES, | [address] | | | | TRANSFUSION MEDICINE | | | | + + + + + PRODUCT - RED CELLS LEUKOREDUCED (08/15/2019 2:46 PM PDT) + + + + + + | Component | Value | Ref Range | Performed | Pathologist | | | | | At | Signature | + + + + + + | PRODUCT | -1 RED BLOOD CELLS | | [facility] | | | DESCRIPTION | LEUKOREDUCED | | LABORATORY | | | | | | SERVICES, | | | | | | TRANSFUSION | | | | | | MEDICINE | | + + + + + + | PRODUCT | [id number] | | [facility] | | | UNIT # | | | LABORATORY | | | | | | SERVICES, | | | | | | TRANSFUSION | | | | | | MEDICINE | | + + + + + + | UNIT ABO | A | | [facility] | | | | | | LABORATORY | | | | | | SERVICES, | | | | | | TRANSFUSION | | | | | | MEDICINE | | + + + + + + | UNIT RH | POS | | [facility] | | | | | | LABORATORY | | | | | | SERVICES, | | | | | | TRANSFUSION | | | | | | MEDICINE | | + + + + + + | STATUS OF | Presumed Transfused | | [facility] | | | UNIT | | | LABORATORY | | | | | | SERVICES, | | | | | | TRANSFUSION | | | | | | MEDICINE | | + + + + + + | EXPIRATION | [id number] | | [facility] | | | DATE | | | LABORATORY | | | | | | SERVICES, | | | | | | TRANSFUSION | | | | | | MEDICINE | | + + + + + + | BLOOD TYPE | 6200 | | [facility] | | | BARCODE | | | LABORATORY | | | | | | SERVICES, | | | | | | TRANSFUSION | | | | | | MEDICINE | | + + + + + + | BLOOD | [id number] | | [facility] | | | PRODUCT | | | LABORATORY | | | CODE | | | SERVICES, | | | | | | TRANSFUSION | | | | | | MEDICINE | | + + + + + + + + | Specimen | + + | | + + + + + + + | Performing | Address | City/State/Zipcode | Phone Number | | Organization | | | | + + + + + | [facility] | [address] | [place] [address] | | | SERVICES, | [address] | | | | TRANSFUSION MEDICINE | | | | + + + + + PRODUCT - RED CELLS LEUKOREDUCED (08/15/2019 2:46 PM PDT) + + + + + + | Component | Value | Ref Range | Performed | Pathologist | | | | | At | Signature | + + + + + + | PRODUCT | -1 RED BLOOD CELLS | | [facility] | | | DESCRIPTION | LEUKOREDUCED | | LABORATORY | | | | | | SERVICES, | | | | | | TRANSFUSION | | | | | | MEDICINE | | + + + + + + | PRODUCT | [id number] | | [facility] | | | UNIT # | | | LABORATORY | | | | | | SERVICES, | | | | | | TRANSFUSION | | | | | | MEDICINE | | + + + + + + | UNIT ABO | A | | [facility] | | | | | | LABORATORY | | | | | | SERVICES, | | | | | | TRANSFUSION | | | | | | MEDICINE | | + + + + + + | UNIT RH | POS | | [facility] | | | | | | LABORATORY | | | | | | SERVICES, | | | | | | TRANSFUSION | | | | | | MEDICINE | | + + + + + + | STATUS OF | Presumed Transfused | | [facility] | | | UNIT | | | LABORATORY | | | | | | SERVICES, | | | | | | TRANSFUSION | | | | | | MEDICINE | | + + + + + + | EXPIRATION | [phone] | | [facility] | | | DATE | | | LABORATORY | | | | | | SERVICES, | | | | | | TRANSFUSION | | | | | | MEDICINE | | + + + + + + | BLOOD TYPE | 6200 | | [facility] | | | BARCODE | | | LABORATORY | | | | | | SERVICES, | | | | | | TRANSFUSION | | | | | | MEDICINE | | + + + + + + | BLOOD | [id number] | | [facility] | | | PRODUCT | | | LABORATORY | | | CODE | | | SERVICES, | | | | | | TRANSFUSION | | | | | | MEDICINE | | + + + + + + + + | Specimen | + + | | + + + + + + + | Performing | Address | City/State/Zipcode | Phone Number | | Organization | | | | + + + + + | [facility] | [address] | [place] [address] | | | SERVICES, | [address] | | | | TRANSFUSION MEDICINE | | | | + + + + + PRODUCT - RED CELLS LEUKOREDUCED (08/15/2019 2:46 PM PDT) + + + + + + | Component | Value | Ref Range | Performed | Pathologist | | | | | At | Signature | + + + + + + | PRODUCT | -1 RED BLOOD CELLS | | [facility] | | | DESCRIPTION | LEUKOREDUCED | | LABORATORY | | | | | | SERVICES, | | | | | | TRANSFUSION | | | | | | MEDICINE | | + + + + + + | PRODUCT | [id number] | | [facility] | | | UNIT # | | | LABORATORY | | | | | | SERVICES, | | | | | | TRANSFUSION | | | | | | MEDICINE | | + + + + + + | UNIT ABO | A | | [facility] | | | | | | LABORATORY | | | | | | SERVICES, | | | | | | TRANSFUSION | | | | | | MEDICINE | | + + + + + + | UNIT RH | POS | | [facility] | | | | | | LABORATORY | | | | | | SERVICES, | | | | | | TRANSFUSION | | | | | | MEDICINE | | + + + + + + | STATUS OF | Presumed Transfused | | [facility] | | | UNIT | | | LABORATORY | | | | | | SERVICES, | | | | | | TRANSFUSION | | | | | | MEDICINE | | + + + + + + | EXPIRATION | [id number] | | [facility] | | | DATE | | | LABORATORY | | | | | | SERVICES, | | | | | | TRANSFUSION | | | | | | MEDICINE | | + + + + + + | BLOOD TYPE | 6200 | | [facility] | | | BARCODE | | | LABORATORY | | | | | | SERVICES, | | | | | | TRANSFUSION | | | | | | MEDICINE | | + + + + + + | BLOOD | [id number] | | [facility] | | | PRODUCT | | | LABORATORY | | | CODE | | | SERVICES, | | | | | | TRANSFUSION | | | | | | MEDICINE | | + + + + + + + + | Specimen | + + | | + + + + + + + | Performing | Address | City/State/Zipcode | Phone Number | | Organization | | | | + + + + + | [facility] | [address] | [place] [address] | | | SERVICES, | [address] | | | | TRANSFUSION MEDICINE | | | | + + + + + PRODUCT - RED CELLS LEUKOREDUCED (08/15/2019 2:46 PM PDT) + + + + + + | Component | Value | Ref Range | Performed | Pathologist | | | | | At | Signature | + + + + + + | PRODUCT | -1 RED BLOOD CELLS | | [facility] | | | DESCRIPTION | [facility] | | LABORATORY | | | | | | SERVICES, | | | | | | TRANSFUSION | | | | | | MEDICINE | | + + + + + + | PRODUCT | [id number] | | [facility] | | | UNIT # | | | LABORATORY | | | | | | SERVICES, | | | | | | TRANSFUSION | | | | | | MEDICINE | | + + + + + + | [facility] | A | | [facility] | | | | | | LABORATORY | | | | | | SERVICES, | | | | | | TRANSFUSION | | | | | | MEDICINE | | + + + + + + | UNIT [facility] | POS | | [facility] | | | | | | LABORATORY | | | | | | SERVICES, | | | | | | TRANSFUSION | | | | | | MEDICINE | | + + + + + + | STATUS OF | Presumed Transfused | | [facility] | | | UNIT | | | LABORATORY | | | | | | SERVICES, | | | | | | TRANSFUSION | | | | | | MEDICINE | | + + + + + + | EXPIRATION | [id number] | | [facility] | | | DATE | | | LABORATORY | | | | | | SERVICES, | | | | | | TRANSFUSION | | | | | | MEDICINE | | + + + + + + | BLOOD TYPE | 6200 | | [facility] | | | BARCODE | | | LABORATORY | | | | | | SERVICES, | | | | | | TRANSFUSION | | | | | | MEDICINE | | + + + + + + | BLOOD | [id number] | | [facility] | | | PRODUCT | | | LABORATORY | | | CODE | | | SERVICES, | | | | | | TRANSFUSION | | | | | | MEDICINE | | + + + + + + + + | Specimen | + + | | + + + + + + + | Performing | Address | City/State/Zipcode | Phone Number | | Organization | | | | + + + + + | [facility] | [address] | [place] [address] | | | SERVICES, | [address] | | | | TRANSFUSION MEDICINE | | | | + + + + + INTRAPROCEDURE IMAGING (08/15/2019 2:46 PM PDT) + + | Specimen | + + | | + + + + + | Narrative | Performed At | + + + | See admission or procedure notes for details of any intraprocedure | [facility] | | images obtained. | RADIOLOGY | + + + + +---------+ + + | Performing | Address | City/State/Zipcode | Phone Number | | Organization | | | | + +---------+ + + | [facility] | | | | + +---------+ + + CAPILLARY BLOOD GLUCOSE (NO CHG), POC (08/15/2019 7:41 AM PDT) + +---------+ + + + | Component | Value | Ref Range | Performed | Pathologist | | | | | At | Signature | + +---------+ + + + | BLOOD | 227 (H) | 70 - 99 mg/dL | [facility] - | | | GLUCOSE, | | | [facility] | | | POC | | | [facility] | | | | | | [facility] | | | | | | TESTS | | + +---------+ + + + + + | Specimen | + + | Blood | + + + + + + + | Performing | Address | City/State/Zipcode | Phone Number | | Organization | | | | + + + + + | [facility] | [address] | [place], [place] | | | [facility] | [facility] | [phone] | | | TESTS | | | | + + + + + CAPILLARY BLOOD GLUCOSE (NO CHG), POC (08/15/2019 6:39 AM PDT) + +---------+ + + + | Component | Value | Ref Range | Performed | Pathologist | | | | | At | Signature | + +---------+ + + + | BLOOD | 202 (H) | 70 - 99 mg/dL | [facility] | | | GLUCOSE, | | | [facility] | | | POC | | | [facility] | | | | | | OF CARE | | | | | | TESTS | | + +---------+ + + + + + | Specimen | + + | Blood | + + + + + + + | Performing | Address | City/State/Zipcode | Phone Number | | Organization | | | | + + + + + | [facility] | [address] | [place], [place] | | | [facility] [place] | [address] | [address] | | | TESTS | | | | + + + + + CBC (HEMOGRAM) ONLY (08/15/2019 4:54 AM PDT) + + + + + + | Component | Value | Ref Range | Performed | Pathologist | | | | | At | Signature | + + + + + + | WHITE CELL | 4.69 | 3.50 - 10.80 | [facility] | | | COUNT | | K/cu mm | LABORATORY | | | | | | SERVICES, | | | | | | CORE | | + + + + + + | RED CELL | 1.94 (L) | 4.50 - 6.00 | [facility] | | | COUNT | | M/cu mm | LABORATORY | | | | | | SERVICES, | | | | | | CORE | | + + + + + + | HEMOGLOBIN | 6.7 (L) | 13.5 - 17.5 | [facility] | | | | | g/dL | LABORATORY | | | | | | SERVICES, | | | | | | CORE | | + + + + + + | HEMATOCRIT | 21.0 (L) | 41.0 - 53.0 % | [facility] | | | | | | LABORATORY | | | | | | SERVICES, | | | | | | CORE | | + + + + + + | MCV | 108.2 (H) | 80.0 - 100.0 fL | [facility] | | | | | | LABORATORY | | | | | | SERVICES, | | | | | | CORE | | + + + + + + | MCHC | 31.9 (L) | 32.0 - 36.0 | [facility] | | | | | g/dL | LABORATORY | | | | | | SERVICES, | | | | | | CORE | | + + + + + + | RDW SD | 80.2 (H) | 35.1 - 46.3 fL | [facility] | | | | | | LABORATORY | | | | | | SERVICES, | | | | | | CORE | | + + + + + + | PLATELET | 59 (L) | 150 - 400 K/cu | [...] | + + + + + | [employer] | [address] | [place] [address] | | | SERVICES, CORE | [address] | | | + + + + + COAGULOPATHY PANEL (INR,APTT,FIBRINOGEN) (08/15/2019 4:54 AM PDT) + + + + + + | Component | Value | Ref Range | Performed | Pathologist | | | | | At | Signature | + + + + + + | INR | 3.46 (H) | 0.90 - 1.20 INR | [facility] | | | | | | LABORATORY | | | | | | SERVICES, | | | | | | CORE | | + + + + + + | APTT | 73.6 (H) | 26.0 - 36.0 | [facility] | | | | | seconds | LABORATORY | | | | | | SERVICES, | | | | | | CORE | | + + + + + + | FIBRINOGEN | 136 (L) | 150 - 450 mg/dL | [facility] | | | LEVEL | | | LABORATORY | | | [...] Therapeutic ranges for full anticoagulation: INR for | [facility] | | Venous Thromboembolism (2.0 - 3.0) INR INR for | LABORATORY | | most patients with mech. valves (2.5 - 3.5) INR APTT values for | SERVICES, CORE | | monitoring heparin therapy may be affected by specimens processed >1 | | | hour after collection. APTT Therapeutic Range: | | | (75 - 120) sec Heparin levels of 0.35 - 0.7 U/mL | | | | | + + + + + + + + | Performing | Address | City/State/Zipcode | Phone Number | | Organization | | | | + + + + + | [facility] | [address] | [place] [address] | | | SERVICES, CORE | [address] | | | + + + + + COMPLETE METABOLIC SET (NA,K,CL,CO2,BUN,CREAT,GLUC,CA,AST,ALT,BILI TOTAL,ALK PHOS,ALB,PROT TOTAL) (08/15/2019 4:54 AM PDT) + + + + + + | Component | Value | Ref Range | Performed | Pathologist | | | | | At | Signature | + + + + + + | GLUCOSE, | 197 (H) | 70 - 99 mg/dL | [facility] | | | PLASMA | | | LABORATORY | | | (LAB) | | | SERVICES, | | | | | | CORE | | + + + + + + | BUN, PLASMA | 60 (H) | 6 - 20 mg/dL | [facility] | | | (LAB) | | | LABORATORY | | | | | | SERVICES, | | | | | | CORE | | + + + + + + | CREATININE | 1.18 | 0.70 - 1.30 | [facility] | | | PLASMA | | mg/dL | LABORATORY | | | (LAB) | | | SERVICES, | | | | | | CORE | | + + + + + + | EGFR | >60 | >60 mL/min | [facility] | | | - | | | LABORATORY | | | [facility] | | | SERVICES, | | | | | | CORE | | + + + + + + | EGFR NON | >60 | >60 mL/min | [facility] | | | -[facility] | | | LABORATORY | | | [...] + + | POTASSIUM, | 4.6 | 3.4 - 5.0 | [facility] | | | PLASMA | | mmol/L | LABORATORY | | | (LAB) | | | SERVICES, | | | | | | CORE | | + + + + + + | CHLORIDE, | 107 | 97 - 108 mmol/L | [facility] | | | PLASMA | | | LABORATORY | | | (LAB) | | | SERVICES, | | | | | | CORE | | + + + + + + | TOTAL CO2, | 19 (L) | 21 - 32 mmol/L | [facility] | | | PLASMA | | | LABORATORY | | | (LAB) | | | SERVICES, | | | | | | CORE | | + + + + + + | CALCIUM, | 8.2 (L) | 8.6 - 10.2 | [facility] | [...] + + + + | BILIRUBIN | 11.0 (H) | 0.3 - 1.2 mg/dL | [facility] | | | TOTAL | | | LABORATORY | | | | | | SERVICES, | | | | | | CORE | | + + + + + + | TOTAL | 6.2 (L) | 6.4 - 8.2 g/dL | [facility] | | | PROTEIN, | | | LABORATORY | | | PLASMA | | | SERVICES, | | | (LAB) | | | CORE | | + + + + + + | ALBUMIN, | 2.8 (L) | 3.5 - 4.7 g/dL | [facility] | | | PLASMA | | | LABORATORY | | | (LAB) | | | SERVICES, | | | | | | CORE | | + + + + + + | ALK PHOS | 222 (H) | 53 - 128 U/L | [facility] | | | | | | LABORATORY | | | | | | SERVICES, | | | | | | CORE | | + + + + + + | AST(SGOT) | 93 (H) | <=41 U/L | [facility] | | | | | | LABORATORY | | | | | | SERVICES, | | | | | | CORE | | + + + + + + | ALT (SGPT) | 53 | <=60 U/L | [facility] | | | | | | LABORATORY | | | | | | SERVICES, | | | | | | CORE | | + + + + + + | ANION GAP | 8 | 4 - 11 mmol/L | [facility] | | | | | | LABORATORY | | | | | | SERVICES, | | | | | | CORE | | + + + + + + | ANION | 11 | 4 - 11 mmol/L | [facility] [...] MDRD equation recommended by the National | [facility] | | Kidney Disease Education Program. Estimated [...] + | [facility] | [address] | [place] [address] | | | SERVICES, CORE | [address] | | | + + + + + PHOSPHORUS, PLASMA (08/15/2019 4:54 AM PDT) + +-------+ + + + | Component | Value | Ref Range | Performed | Pathologist | | | | | At | Signature | + +-------+ + + + | PHOSPHORUS, | 3.2 | 2.4 - 4.7 mg/dL | [facility] [...] | + + + + + | [facility] | [address] | [place] [address] | | | CLAUDIA, ARTIS | [address] | | | + + + + + MAGNESIUM, PLASMA (08/15/2019 4:54 AM PDT) + +-------+ + + + | Component | Value | Ref Range | Performed | Pathologist | | | | | At | Signature | + +-------+ + + + | MAGNESIUM,P | 2.2 | 1.6 - 2.6 mg/dL | [facility] [...] | + + + + + | [facility] | [address] | [place] [address] | | | ARTIS TAYLOR | [address] | | | + + + + + CAPILLARY BLOOD GLUCOSE (NO CHG), POC (08/14/2019 10:44 PM PDT) + +---------+ + + + | Component | Value | Ref Range | Performed | Pathologist | | | | | At | Signature | + +---------+ + + + | BLOOD | 176 (H) | 70 - 99 mg/dL | [facility] - | | | GLUCOSE, | | | [facility] | | | POC | | | [facility] | | | | | | OF CARE | | | | | | TESTS | | + +---------+ + + + + + | Specimen | + + | Blood | + + + + + + + | Performing | Address | City/State/Zipcode | Phone Number | | Organization | | | | + + + + + | [facility] | [address] | [place], [place] | | | [facility] | [address] | [address] | | | TESTS | | | | + + + + + CAPILLARY BLOOD GLUCOSE (NO CHG), POC (08/14/2019 5:10 PM PDT) + +-------+ + + + | Component | Value | Ref Range | Performed | Pathologist | | | | | At | Signature | + +-------+ + + + | BLOOD | 78 | 70 - 99 mg/dL | [facility] | | | GLUCOSE, | | | [facility] | | | POC | | | [facility] | | | | | | OF CARE | | | | | | TESTS | | + +-------+ + + + + + | Specimen | + + | Blood | + + + + + + + | Performing | Address | City/State/Zipcode | Phone Number | | Organization | | | | + + + + + | [facility] | [address] | [place], [place] | | | [facility] [place] | [facility] | [address] | | | TESTS | | | | + + + + + CAPILLARY BLOOD GLUCOSE (NO CHG), POC (08/14/2019 1:01 PM PDT) + +---------+ + + + | Component | Value | Ref Range | Performed | Pathologist | | | | | At | Signature | + +---------+ + + + | BLOOD | 194 (H) | 70 - 99 mg/dL | [facility] | | | GLUCOSE, | | | [facility] | | | POC | | | [place] [place] | | | | | | OF CARE | | | | | | TESTS | | + +---------+ + + + + + | Specimen | + + | Blood | + + + + + + + | Performing | Address | City/State/Zipcode | Phone Number | | Organization | | | | + + + + + | [facility] | [address] | [place] | | | [facility] | [facility] | [address] | | | TESTS | | | | + + + + + CULTURE, BLOOD BACTI & YEAST [facility] (08/14/2019 12:54 PM PDT) + + + + + + | Component | Value | Ref Range | Performed | Pathologist | | | | | At | Signature | + + + + + + | CULTURE | Final Report:No Bacteria | | [facility] | | | RESULT | or Yeast isolated at 5 | | LABORATORY | | | | days. | | SERVICES, | | | | | | CORE | | + + + + + + + + | Specimen | + + | Blood - Antecubital | | region structure | | (body structure) | + + + + + + + | Performing | Address | City/State/Zipcode | Phone Number | | Organization | | | | + + + + + | [facility] | [address] | [place] [address] | | | SERVICES, CORE | [address] | | | + + + + + CULTURE, BLOOD BACTI & YEAST [facility] (08/14/2019 12:54 PM PDT) + + + + + + | Component | Value | Ref Range | Performed | Pathologist | | | | | At | Signature | + + + + + + | CULTURE | Final Report:No Bacteria | | [facility] | | | RESULT | or Yeast isolated at 5 | | LABORATORY | | | | days. | | SERVICES, | | | | | | CORE | | + + + + + + + + | Specimen | + + | Blood - Antecubital | | region structure | | (body structure) | + + + + + + + | Performing | Address | City/State/Zipcode | Phone Number | | Organization | | | | + + + + + | [facility] | [address] | [place] [address] | | | SERVICES, CORE | [address] | | | + + + + + CAPILLARY BLOOD GLUCOSE (NO CHG), POC (08/14/2019 10:21 AM PDT) + +---------+ + + + | Component | Value | Ref Range | Performed | Pathologist | | | | | At | Signature | + +---------+ + + + | BLOOD | 207 (H) | 70 - 99 mg/dL | [facility] | | | GLUCOSE, | | | [facility] | | | POC | | | [facility] | | | | | | OF CARE | | | | | | TESTS | | + +---------+ + + + + + | Specimen | + + | Blood | + + + + + + + | Performing | Address | City/State/Zipcode | Phone Number | | Organization | | | | + + + + + | [facility] | [address] | [place], [place] | | | [facility] | [address] | [address] | | | TESTS | | | | + + + + + CAPILLARY BLOOD GLUCOSE (NO CHG), POC (08/14/2019 7:56 AM PDT) + +---------+ + + + | Component | Value | Ref Range | Performed | Pathologist | | | | | At | Signature | + +---------+ + + + | BLOOD | 170 (H) | 70 - 99 mg/dL | [facility] | | | GLUCOSE, | | | [facility] | | | POC | | | [facility] | | | | | | OF CARE | | | | | | TESTS | | + +---------+ + + + + + | Specimen | + + | Blood | + + + + + + + | Performing | Address | City/State/Zipcode | Phone Number | | Organization | | | | + + + + + | [facility] | [address] | [place], [place] | | | [facility] | [address] | [address] | | | TESTS | | | | + + + + + CBC (HEMOGRAM) ONLY (08/14/2019 5:47 AM PDT) + + + + + + | Component | Value | Ref Range | Performed | Pathologist | | | | | At | Signature | + + + + + + | WHITE CELL | 4.37 | 3.50 - 10.80 | [facility] | | | COUNT | | K/cu mm | LABORATORY | | | | | | SERVICES, | | | | | | CORE | | + + + + + + | RED CELL | 2.07 (L) | 4.50 - 6.00 | [facility] | | | COUNT | | M/cu mm | LABORATORY | | | | | | SERVICES, | | | | | | CORE | | + + + + + + | HEMOGLOBIN | 7.1 (L) | 13.5 - 17.5 | [facility] | | | | | g/dL | LABORATORY | | | | | | SERVICES, | | | | | | CORE | | + + + + + + | HEMATOCRIT | 22.0 (L) | 41.0 - 53.0 % | [facility] | | | | | | LABORATORY | | | | | | SERVICES, | | | | | | CORE | | + + + + + + | MCV | 106.3 (H) | 80.0 - 100.0 fL | [...] + + + | RDW SD | 79.6 (H) | 35.1 - 46.3 fL | [facility] | | | | | | LABORATORY | | | | | | SERVICES, | | | | | | CORE | | + + + + + + | PLATELET | 60 (L) | 150 - 400 K/cu | [facility] | | | COUNT | | mm | LABORATORY | | | | | | SERVICES, | | | | | | CORE | | + + + + + + | MPV | 11.5 | 9.7 - 12.3 fL | [facility] [...] | + + + + + | [facility] | [address] | [place] [address] | | | SERVICES, CORE | [address] | | | + + + + + COAGULOPATHY PANEL (INR,APTT,FIBRINOGEN) (08/14/2019 5:47 AM PDT) + + + + + + | Component | Value | Ref Range | Performed | Pathologist | | | | | At | Signature | + + + + + + | INR | 3.52 (H) | 0.90 - 1.20 INR | [facility] | | | | | | LABORATORY | | | | | | SERVICES, | | | | | | CORE | | + + + + + + | APTT | 72.5 (H) | 26.0 - 36.0 | [facility] | | | | | seconds | LABORATORY | | | | | | SERVICES, | | | | | | CORE | | + + + + + + | FIBRINOGEN | 133 (L) | 150 - 450 mg/dL | [facility] | | | LEVEL | | | LABORATORY | | | [...] Therapeutic ranges for full anticoagulation: INR for | [facility] | | Venous Thromboembolism (2.0 - 3.0) INR INR for | LABORATORY | | most patients with mech. valves (2.5 - 3.5) INR APTT values for | SERVICES, CORE | | monitoring heparin therapy may be affected by specimens processed >1 | | | hour after collection. APTT Therapeutic Range: | | | (75 - 120) sec Heparin levels of 0.35 - 0.7 U/mL | | | | | + + + + + + + + | Performing | Address | City/State/Zipcode | Phone Number | | Organization | | | | + + + + + | [facility] | [address] | [place] [address] | | | SERVICES, CORE | [address] | | | + + + + + COMPLETE METABOLIC SET (NA,K,CL,CO2,BUN,CREAT,GLUC,CA,AST,ALT,BILI TOTAL,ALK PHOS,ALB,PROT TOTAL) (08/14/2019 5:47 AM PDT) + + + + + + | Component | Value | Ref Range | Performed | Pathologist | | | | | At | Signature | + + + + + + | GLUCOSE, | 144 (H) | 70 - 99 mg/dL | [...] + + + + | CREATININE | 1.16 | 0.70 - 1.30 | [facility] | | | PLASMA | | mg/dL | LABORATORY | | | (LAB) | | | SERVICES, | | | | | | CORE | | + + + + + + | EGFR | >60 | >60 mL/min | [facility] | | | - | | | LABORATORY | | | [facility] | | | SERVICES, | | | | | | CORE | | + + + + + + | EGFR NON | >60 | >60 mL/min | [facility] | | | -[facility] | | | LABORATORY | | | RICAN | | | SERVICES, | | | | | | CORE | | + + + + + + | SODIUM, | 135 (L) | 136 - 145 | [facility] | | | PLASMA | | mmol/L | LABORATORY | | | (LAB) | | | SERVICES, | | | | | | CORE | | + + + + + + | POTASSIUM, | 4.6 | 3.4 - 5.0 | [facility] | | | PLASMA | | mmol/L | LABORATORY | | | (LAB) | | | SERVICES, | | | | | | CORE | | + + + + + + | CHLORIDE, | 107 | 97 - 108 mmol/L | [facility] [...] + + + + | BILIRUBIN | 11.7 (H) | 0.3 - 1.2 mg/dL | [facility] | | | TOTAL | | | LABORATORY | | | | | | SERVICES, | | | | | | CORE | | + + + + + + | TOTAL | 6.5 | 6.4 - 8.2 g/dL | [facility] | | | PROTEIN, | | | LABORATORY | | | PLASMA | | | SERVICES, | | | (LAB) | | | CORE | | + + + + + + | ALBUMIN, | 3.0 (L) | 3.5 - 4.7 g/dL | [facility] | | | PLASMA | | | LABORATORY | | | (LAB) | | | SERVICES, | | | | | | CORE | | + + + + + + | ALK PHOS | 211 (H) | 53 - 128 U/L | [facility] | | | | | | LABORATORY | | | | | | SERVICES, | | | | | | CORE | | + + + + + + | AST(SGOT) | 91 (H) | <=41 U/L | [facility] | | | | | | LABORATORY | | | | | | SERVICES, | | | | | | CORE | | + + + + + + | ALT (SGPT) | 57 | <=60 U/L | [facility] | | [...] + + + + | ANION | 7 | 4 - 11 mmol/L | [facility] [...] MDRD equation recommended by the National | [facility] | | Kidney Disease Education Program. Estimated [...] + | [facility] | [address] | [place] [address] | | | SERVICES, CORE | [address] | | | + + + + + PHOSPHORUS, PLASMA (08/14/2019 5:47 AM PDT) + +-------+ + + + | Component | Value | Ref Range | Performed | Pathologist | | | | | At | Signature | + +-------+ + + + | PHOSPHORUS, | 3.5 | 2.4 - 4.7 mg/dL | [facility] [...] | + + + + + | [facility] | [address] | [place] [address] | | | SERVICES, CORE | [address] | | | + + + + + MAGNESIUM, PLASMA (08/14/2019 5:47 AM PDT) + +-------+ + + + | Component | Value | Ref Range | Performed | Pathologist | | | | | At | Signature | + +-------+ + + + | MAGNESIUM,P | 2.3 | 1.6 - 2.6 mg/dL | [facility] | | | [facility] | | | [...] + + + + + | [facility] | [address] | [place] [address] | | | ARTIS TAYLOR | [address] | | | + + + + + CAPILLARY BLOOD GLUCOSE (NO CHG), POC (08/14/2019 5:28 AM PDT) + +---------+ + + + | Component | Value | Ref Range | Performed | Pathologist | | | | | At | Signature | + +---------+ + + + | BLOOD | 134 (H) | 70 - 99 mg/dL | [facility] - | | | GLUCOSE, | | | [facility] | | | POC | | | [facility] | | | | | | OF CARE | | | | | | TESTS | | + +---------+ + + + + + | Specimen | + + | Blood | + + + + + + + | Performing | Address | City/State/Zipcode | Phone Number | | Organization | | | | + + + + + | [facility] | [address] | [place], [place] | | | [facility] | [address] | [address] | | | TESTS | | | | + + + + + CAPILLARY BLOOD GLUCOSE (NO CHG), POC (08/14/2019 12:01 AM PDT) + +---------+ + + + | Component | Value | Ref Range | Performed | Pathologist | | | | | At | Signature | + +---------+ + + + | BLOOD | 171 (H) | 70 - 99 mg/dL | [facility] | | | GLUCOSE, | | | [facility] | | | POC | | | [facility] | | | | | | OF CARE | | | | | | TESTS | | + +---------+ + + + + + | Specimen | + + | Blood | + + + + + + + | Performing | Address | City/State/Zipcode | Phone Number | | Organization | | | | + + + + + | [facility] | [address] | [place], [place] | | | [facility] [place] [facility] | [address] | [address] | | | TESTS | | | | + + + + + CAPILLARY BLOOD GLUCOSE (NO CHG), POC (08/13/2019 8:39 PM PDT) + +---------+ + + + | Component | Value | Ref Range | Performed | Pathologist | | | | | At | Signature | + +---------+ + + + | BLOOD | 100 (H) | 70 - 99 mg/dL | [facility] - | | | GLUCOSE, | | | [facility] | | | POC | | | [facility] | | | | | | OF CARE | | | | | | TESTS | | + +---------+ + + + + + | Specimen | + + | Blood | + + + + + + + | Performing | Address | City/State/Zipcode | Phone Number | | Organization | | | | + + + + + | [facility] | [address] | [place], [place] | | | [facility] | [address] | [address] | | | TESTS | | | | + + + + + CAPILLARY BLOOD GLUCOSE (NO CHG), POC (08/13/2019 3:45 PM PDT) + +-------+ + + + | Component | Value | Ref Range | Performed | Pathologist | | | | | At | Signature | + +-------+ + + + | BLOOD | 91 | 70 - 99 mg/dL | [facility] - | | | GLUCOSE, | | | [facility] | | | POC | | | [place] [place] | | | | | | OF CARE | | | | | | TESTS | | + +-------+ + + + + + | Specimen | + + | Blood | + + + + + + + | Performing | Address | City/State/Zipcode | Phone Number | | Organization | | | | + + + + + | [facility] | [address] | [place], [place] | | | [facility] | [address] | [address] | | | TESTS | | | | + + + + + CAPILLARY BLOOD GLUCOSE (NO CHG), POC (08/13/2019 9:28 AM PDT) + +---------+ + + + | Component | Value | Ref Range | Performed | Pathologist | | | | | At | Signature | + +---------+ + + + | BLOOD | 225 (H) | 70 - 99 mg/dL | [facility] - | | | GLUCOSE, | | | [facility] | | | POC | | | [facility] | | | | | | OF CARE | | | | | | TESTS | | + +---------+ + + + + + | Specimen | + + | Blood | + + + + + + + | Performing | Address | City/State/Zipcode | Phone Number | | Organization | | | | + + + + + | [facility] | [address] | [place], [place] | | | [facility] | [address] | [address] | | | TESTS | | | | + + + + + CAPILLARY BLOOD GLUCOSE (NO CHG), POC (08/13/2019 6:32 AM PDT) + +---------+ + + + | Component | Value | Ref Range | Performed | Pathologist | | | | | At | Signature | + +---------+ + + + | BLOOD | 223 (H) | 70 - 99 mg/dL | [facility] - | | | GLUCOSE, | | | [facility] | | | POC | | | [facility] | | | | | | OF CARE | | | | | | TESTS | | + +---------+ + + + + + | Specimen | + + | Blood | + + + + + + + | Performing | Address | City/State/Zipcode | Phone Number | | Organization | | | | + + + + + | [facility] | [address] | [place], [place] | | | [facility] [place] | [facility] | [address] | | | TESTS | | | | + + + + + CBC (HEMOGRAM) ONLY (08/13/2019 4:41 AM PDT) + + + + + + | Component | Value | Ref Range | Performed | Pathologist | | | | | At | Signature | + + + + + + | WHITE CELL | 4.39 | 3.50 - 10.80 | [facility] | | | COUNT | | K/cu mm | LABORATORY | | | | | | SERVICES, | | | | | | CORE | | + + + + + + | RED CELL | 2.01 (L) | 4.50 - 6.00 | [facility] | | | COUNT | | M/cu mm | LABORATORY | | | | | | SERVICES, | | | | | | CORE | | + + + + + + | HEMOGLOBIN | 7.0 (L) | 13.5 - 17.5 | [facility] | | | | | g/dL | LABORATORY | | | | | | SERVICES, | | | | | | CORE | | + + + + + + | HEMATOCRIT | 21.1 (L) | 41.0 - 53.0 % | [facility] | | | | | | LABORATORY | | | | | | SERVICES, | | | | | | CORE | | + + + + + + | MCV | 105.0 (H) | 80.0 - 100.0 fL | [facility] | | | | | | LABORATORY | | | | | | SERVICES, | | | | | | CORE | | + + + + + + | MCHC | 33.2 | 32.0 - 36.0 | [facility] | | | | | g/dL | LABORATORY | | | | | | SERVICES, | | | | | | CORE | | + + + + + + | RDW SD | 78.6 (H) | 35.1 - 46.3 fL | [facility] | | | | | | LABORATORY | | | | | | SERVICES, | | | | | | CORE | | + + + + + + | PLATELET | 55 (L) | 150 - 400 K/cu | [facility] | | | COUNT | | mm | LABORATORY | | | | | | SERVICES, | | | | | | CORE | | + + + + + + | MPV | 10.8 | 9.7 - 12.3 fL | [facility] [...] | + + + + + | [facility] | [address] | [place] [address] | | | SERVICES, CORE | [address] | | | + + + + + COAGULOPATHY PANEL (INR,APTT,FIBRINOGEN) (08/13/2019 4:41 AM PDT) + + + + + + | Component | Value | Ref Range | Performed | Pathologist | | | | | At | Signature | + + + + + + | INR | 3.59 (H) | 0.90 - 1.20 INR | [facility] | | | | | | LABORATORY | | | | | | SERVICES, | | | | | | CORE | | + + + + + + | APTT | 72.3 (H) | 26.0 - 36.0 | [facility] | | | | | seconds | LABORATORY | | | | | | SERVICES, | | | | | | CORE | | + + + + + + | FIBRINOGEN | 129 (L) | 150 - 450 mg/dL | [facility] | | | LEVEL | | | LABORATORY | | | [...] Therapeutic ranges for full anticoagulation: INR for | [facility] | | Venous Thromboembolism (2.0 - 3.0) INR INR for | LABORATORY | | most patients with mech. valves (2.5 - 3.5) INR APTT values for | SERVICES, CORE | | monitoring heparin therapy may be affected by specimens processed >1 | | | hour after collection. APTT Therapeutic Range: | | | (75 - 120) sec Heparin levels of 0.35 - 0.7 U/mL | | | | | + + + + + + + + | Performing | Address | City/State/Zipcode | Phone Number | | Organization | | | | + + + + + | [facility] | [address] | [place] [address] | | | SERVICES, CORE | [address] | | | + + + + + COMPLETE METABOLIC SET (NA,K,CL,CO2,BUN,CREAT,GLUC,CA,AST,ALT,BILI TOTAL,ALK PHOS,ALB,PROT TOTAL) (08/13/2019 4:41 AM PDT) + + + + + + | Component | Value | Ref Range | Performed | Pathologist | | | | | At | Signature | + + + + + + | GLUCOSE, | 208 (H) | 70 - 99 mg/dL | [...] + + + + | CREATININE | 1.22 | 0.70 - 1.30 | [facility] | | | PLASMA | | mg/dL | LABORATORY | | | (LAB) | | | SERVICES, | | | | | | CORE | | + + + + + + | EGFR | >60 | >60 mL/min | [facility] | | | - | | | LABORATORY | | | [place] | | | SERVICES, | | | | | | CORE | | + + + + + + | EGFR NON | >60 | >60 mL/min | [facility] | | | -JARRED | | | LABORATORY | | | RICAN | | | SERVICES, | | | | | | CORE | | + + + + + + | SODIUM, | 135 (L) | 136 - 145 | [facility] [...] + + + | TOTAL CO2, | 20 (L) | 21 - 32 mmol/L | [facility] | | | PLASMA | | | LABORATORY | | | (LAB) | | | SERVICES, | | | | | | CORE | | + + + + + + | CALCIUM, | 9.1 | 8.6 - 10.2 | [facility] | | | PLASMA | | mg/dL | LABORATORY | | | (LAB) | | | SERVICES, | | | | | | CORE | | + + + + + + | CALCIUM(ALB | 9.7 | 8.6 - 10.2 | [facility] | | | CORRECTED) | | mg/dL | LABORATORY | | | | | | SERVICES, | | | | | | CORE | | + + + + + + | BILIRUBIN | 10.7 (H) | 0.3 - 1.2 mg/dL | [...] + + + + | ALBUMIN, | 3.2 (L) | 3.5 - 4.7 g/dL | [facility] | | | PLASMA | | | LABORATORY | | | (LAB) | | | SERVICES, | | | | | | CORE | | + + + + + + | ALK PHOS | 206 (H) | 53 - 128 U/L | [facility] | | | | | | LABORATORY | | | | | | SERVICES, | | | | | | CORE | | + + + + + + | AST(SGOT) | 109 (H) | <=41 U/L | [facility] | | | | | | LABORATORY | | | | | | SERVICES, | | | | | | CORE | | + + + + + + | ALT (SGPT) | 58 | <=60 U/L | [facility] | | | | | | LABORATORY | | | | | | SERVICES, | | | | | | CORE | | + + + + + + | ANION GAP | 9 | 4 - 11 mmol/L | [facility] | | | | | | LABORATORY | | | | | | SERVICES, | | | | | | CORE | | + + + + + + | ANION | 11 | 4 - 11 mmol/L | [facility] [...] MDRD equation recommended by the National | [facility] CARE | | Kidney Disease Education Program. Estimated [...] + | [facility] | [address] | [place] [address] | | | SERVICES, CORE | [address] | | | + + + + + PHOSPHORUS, PLASMA (08/13/2019 4:41 AM PDT) + +-------+ + + + | Component | Value | Ref Range | Performed | Pathologist | | | | | At | Signature | + +-------+ + + + | PHOSPHORUS, | 3.5 | 2.4 - 4.7 mg/dL | [facility] [...] | + + + + + | [facility] | [address] | [place] [address] | | | SERVICES, CORE | [address] | | | + + + + + MAGNESIUM, PLASMA (08/13/2019 4:41 AM PDT) + +-------+ + + + | Component | Value | Ref Range | Performed | Pathologist | | | | | At | Signature | + +-------+ + + + | MAGNESIUM,P | 2.4 | 1.6 - 2.6 mg/dL | [facility] [...] | + + + + + | [facility] | [address] | [place] [address] | | | ARTIS [place] | [address] | | | + + + + + CAPILLARY BLOOD GLUCOSE (NO CHG), POC (08/13/2019 1:33 AM PDT) + +---------+ + + + | Component | Value | Ref Range | Performed | Pathologist | | | | | At | Signature | + +---------+ + + + | BLOOD | 197 (H) | 70 - 99 mg/dL | [facility] - | | | GLUCOSE, | | | [facility] | | | POC | | | [facility] | | | | | | OF CARE | | | | | | TESTS | | + +---------+ + + + + + | Specimen | + + | Blood | + + + + + + + | Performing | Address | City/State/Zipcode | Phone Number | | Organization | | | | + + + + + | [facility] | [address] | [place], [place] | | | [facility] | [address] | [address] | | | TESTS | | | | + + + + + CAPILLARY BLOOD GLUCOSE (NO CHG), POC (08/12/2019 10:28 PM PDT) + +---------+ + + + | Component | Value | Ref Range | Performed | Pathologist | | | | | At | Signature | + +---------+ + + + | BLOOD | 135 (H) | 70 - 99 mg/dL | [facility] | | | GLUCOSE, | | | [facility] | | | POC | | | [facility] | | | | | | OF CARE | | | | | | TESTS | | + +---------+ + + + + + | Specimen | + + | Blood | + + + + + + + | Performing | Address | City/State/Zipcode | Phone Number | | Organization | | | | + + + + + | [facility] | [address] | [place], [place] | | | [facility] [place] | [facility] | [address] | | | TESTS | | | | + + + + + CAPILLARY BLOOD GLUCOSE (NO CHG), POC (08/12/2019 6:52 PM PDT) + +---------+ + + + | Component | Value | Ref Range | Performed | Pathologist | | | | | At | Signature | + +---------+ + + + | BLOOD | 122 (H) | 70 - 99 mg/dL | [facility] | | | GLUCOSE, | | | [facility] | | | POC | | | [place] [place] | | | | | | OF CARE | | | | | | TESTS | | + +---------+ + + + + + | Specimen | + + | Blood | + + + + + + + | Performing | Address | City/State/Zipcode | Phone Number | | Organization | | | | + + + + + | [facility] | [address] | [place], [place] | | | [facility] [place] | [facility] | [address] | | | TESTS | | | | + + + + + CAPILLARY BLOOD GLUCOSE (NO CHG), POC (08/12/2019 3:40 PM PDT) + +---------+ + + + | Component | Value | Ref Range | Performed | Pathologist | | | | | At | Signature | + +---------+ + + + | BLOOD | 163 (H) | 70 - 99 mg/dL | [facility] - | | | GLUCOSE, | | | [facility] | | | POC | | | [facility] | | | | | | OF CARE | | | | | | TESTS | | + +---------+ + + + + + | Specimen | + + | Blood | + + + + + + + | Performing | Address | City/State/Zipcode | Phone Number | | Organization | | | | + + + + + | [facility] | [address] | [place], [place] | | | [facility] | [address] | [address] | | | TESTS | | | | + + + + + CAPILLARY BLOOD GLUCOSE (NO CHG), POC (08/12/2019 7:38 AM PDT) + +---------+ + + + | Component | Value | Ref Range | Performed | Pathologist | | | | | At | Signature | + +---------+ + + + | BLOOD | 117 (H) | 70 - 99 mg/dL | [facility] | | | GLUCOSE, | | | [facility] | | | POC | | | [facility] | | | | | | OF CARE | | | | | | TESTS | | + +---------+ + + + + + | Specimen | + + | Blood | + + + + + + + | Performing | Address | City/State/Zipcode | Phone Number | | Organization | | | | + + + + + | [facility] | [address] | [place], [place] | | | [facility] [place] | [facility] | [address] | | | TESTS | | | | + + + + + CBC (HEMOGRAM) ONLY (08/12/2019 6:37 AM PDT) + + + + + + | Component | Value | Ref Range | Performed | Pathologist | | | | | At | Signature | + + + + + + | WHITE CELL | 3.63 | 3.50 - 10.80 | [facility] | | | COUNT | | K/cu mm | LABORATORY | | | | | | SERVICES, | | | | | | CORE | | + + + + + + | RED CELL | 2.06 (L) | 4.50 - 6.00 | [facility] | | | COUNT | | M/cu mm | LABORATORY | | | | | | SERVICES, | | | | | | CORE | | + + + + + + | HEMOGLOBIN | 7.0 (L) | 13.5 - 17.5 | [facility] | | | | | g/dL | LABORATORY | | | | | | SERVICES, | | | | | | CORE | | + + + + + + | HEMATOCRIT | 21.6 (L) | 41.0 - 53.0 % | [facility] | | | | | | LABORATORY | | | | | | SERVICES, | | | | | | CORE | | + + + + + + | MCV | 104.9 (H) | 80.0 - 100.0 fL | [facility] | | | | | | LABORATORY | | | | | | SERVICES, | | | | | | CORE | | + + + + + + | MCHC | 32.4 | 32.0 - 36.0 | [facility] | | | | | g/dL | LABORATORY | | | | | | SERVICES, | | | | | | CORE | | + + + + + + | RDW SD | 78.8 (H) | 35.1 - 46.3 fL | [facility] | | | | | | LABORATORY | | | | | | SERVICES, | | | | | | CORE | | + + + + + + | PLATELET | 56 (L) | 150 - 400 K/cu | [facility] | | | COUNT | | mm | LABORATORY | | | | | | SERVICES, | | | | | | CORE | | + + + + + + | MPV | 11.0 | 9.7 - 12.3 fL | [facility] [...] | + + + + + | [facility] | [address] | [place] [address] | | | SERVICES, CORE | [address] | | | + + + + + COAGULOPATHY PANEL (INR,APTT,FIBRINOGEN) (08/12/2019 6:37 AM PDT) + + + + + + | Component | Value | Ref Range | Performed | Pathologist | | | | | At | Signature | + + + + + + | INR | 3.55 (H) | 0.90 - 1.20 INR | [facility] | | | | | | LABORATORY | | | | | | SERVICES, | | | | | | CORE | | + + + + + + | APTT | 75.1 (H) | 26.0 - 36.0 | [facility] | | | | | seconds | LABORATORY | | | | | | SERVICES, | | | | | | CORE | | + + + + + + | FIBRINOGEN | 145 (L) | 150 - 450 mg/dL | [facility] | | | LEVEL | | | LABORATORY | | | [...] Therapeutic ranges for full anticoagulation: INR for | [facility] | | Venous Thromboembolism (2.0 - 3.0) INR INR for | LABORATORY | | most patients with mech. valves (2.5 - 3.5) INR APTT values for | SERVICES, CORE | | monitoring heparin therapy may be affected by specimens processed >1 | | | hour after collection. APTT Therapeutic Range: | | | (75 - 120) sec Heparin levels of 0.35 - 0.7 U/mL | | | | | + + + + + + + + | Performing | Address | City/State/Zipcode | Phone Number | | Organization | | | | + + + + + | [facility] | [address] | [place] [address] | | | SERVICES, CORE | [address] | | | + + + + + COMPLETE METABOLIC SET (NA,K,CL,CO2,BUN,CREAT,GLUC,CA,AST,ALT,BILI TOTAL,ALK PHOS,ALB,PROT TOTAL) (08/12/2019 6:37 AM PDT) + + + + + + | Component | Value | Ref Range | Performed | Pathologist | | | | | At | Signature | + + + + + + | GLUCOSE, | 100 (H) | 70 - 99 mg/dL | [facility] | | | PLASMA | | | LABORATORY | | | (LAB) | | | SERVICES, | | | | | | CORE | | + + + + + + | BUN, PLASMA | 73 (H) | 6 - 20 mg/dL | [facility] | | | (LAB) | | | LABORATORY | | | | | | SERVICES, | | | | | | CORE | | + + + + + + | CREATININE | 1.29 | 0.70 - 1.30 | [facility] | | | PLASMA | | mg/dL | LABORATORY | | | (LAB) | | | SERVICES, | | | | | | CORE | | + + + + + + | EGFR | >60 | >60 mL/min | [facility] | | | - | | | LABORATORY | | | [facility] | | | SERVICES, | | | | | | CORE | | + + + + + + | EGFR NON | 58 (L) | >60 mL/min | [facility] | | | -[facility] | | | LABORATORY | | | RICAN | | | SERVICES, | | | | | | CORE | | + + + + + + | SODIUM, | 135 (L) | 136 - 145 | [facility] | | | PLASMA | | mmol/L | LABORATORY | | | (LAB) | | | SERVICES, | | | | | | CORE | | + + + + + + | POTASSIUM, | 4.1 | 3.4 - 5.0 | [facility] | | | PLASMA | | mmol/L | LABORATORY | | | (LAB) | | | SERVICES, | | | | | | CORE | | + + + + + + | CHLORIDE, | 105 | 97 - 108 mmol/L | [facility] | | | PLASMA | | | LABORATORY | | | (LAB) | | | SERVICES, | | | | | | CORE | | + + + + + + | TOTAL CO2, | 20 (L) | 21 - 32 mmol/L | [facility] | | | PLASMA | | | LABORATORY | | | (LAB) | | | SERVICES, | | | | | | CORE | | + + + + + + | CALCIUM, | 8.7 | 8.6 - 10.2 | [facility] | | | PLASMA | | mg/dL | LABORATORY | | | (LAB) | | | SERVICES, | | | | | | CORE | | + + + + + + | CALCIUM(ALB | 9.3 | 8.6 - 10.2 | [facility] | | | CORRECTED) | | mg/dL | LABORATORY | | | | | | SERVICES, | | | | | | CORE | | + + + + + + | BILIRUBIN | 10.8 (H) | 0.3 - 1.2 mg/dL | [facility] | | | TOTAL | | | LABORATORY | | | | | | SERVICES, | | | | | | CORE | | + + + + + + | TOTAL | 6.7 | 6.4 - 8.2 g/dL | [facility] [...] + + + | ALK PHOS | 194 (H) | 53 - 128 U/L | [facility] | | | | | | LABORATORY | | | | | | SERVICES, | | | | | | CORE | | + + + + + + | AST(SGOT) | 94 (H) | <=41 U/L | [facility] | | | | | | LABORATORY | | | | | | SERVICES, | | | | | | CORE | | + + + + + + | ALT (SGPT) | 57 | <=60 U/L | [facility] | | | | | | LABORATORY | | | | | | SERVICES, | | | | | | CORE | | + + + + + + | ANION GAP | 10 | 4 - 11 mmol/L | [facility] | | | | | | LABORATORY | | | | | | SERVICES, | | | | | | CORE | | + + + + + + | ANION | 11 | 4 - 11 mmol/L | [facility] [...] MDRD equation recommended by the National | [facility] | | Kidney Disease Education Program. Estimated [...] + | [facility] | [address] | [place] [address] | | | SERVICES, ARTIS | [address] | | | + + + + + PHOSPHORUS, PLASMA (08/12/2019 6:37 AM PDT) + +-------+ + + + [...] | + + + + + | [facility] | [address] | [place] [address] | | | SERVICES, CORE | [address] | | | + + + + + MAGNESIUM, PLASMA (08/12/2019 6:37 AM PDT) + +-------+ + + + | Component | Value | Ref Range | Performed | Pathologist | | | | | At | Signature | + +-------+ + + + | MAGNESIUM,P | 2.3 | 1.6 - 2.6 mg/dL | [facility] [...] + | [facility] | [address] | [place] [address] | | | SERVICES, CORE | [address] | | | + + + + + CAPILLARY BLOOD GLUCOSE (NO CHG), POC (08/12/2019 6:13 AM PDT) + +-------+ + + + | Component | Value | Ref Range | Performed | Pathologist | | | | | At | Signature | + +-------+ + + + | BLOOD | 86 | 70 - 99 mg/dL | [facility] - | | | GLUCOSE, | | | [facility] | | | POC | | | [facility] | | | | | | OF CARE | | | | | | TESTS | | + +-------+ + + + + + | Specimen | + + | Blood | + + + + + + + | Performing | Address | City/State/Zipcode | Phone Number | | Organization | | | | + + + + + | [facility] | [address] | [place], [place] | | | [facility] | [address] | [address] | | | TESTS | | | | + + + + + CAPILLARY BLOOD GLUCOSE (NO CHG), POC (08/11/2019 10:46 PM PDT) + +---------+ + + + | Component | Value | Ref Range | Performed | Pathologist | | | | | At | Signature | + +---------+ + + + | BLOOD | 147 (H) | 70 - 99 mg/dL | [facility] - | | | GLUCOSE, | | | [facility] | | | POC | | | [facility] | | | | | | OF CARE | | | | | | TESTS | | + +---------+ + + + + + | Specimen | + + | Blood | + + + + + + + | Performing | Address | City/State/Zipcode | Phone Number | | Organization | | | | + + + + + | [facility] | [address] | [place], [place] | | | [facility] | [address] | [address] | | | TESTS | | | | + + + + + CAPILLARY BLOOD GLUCOSE (NO CHG), POC (08/11/2019 8:57 PM PDT) + +---------+ + + + | Component | Value | Ref Range | Performed | Pathologist | | | | | At | Signature | + +---------+ + + + | BLOOD | 148 (H) | 70 - 99 mg/dL | [facility] - | | | GLUCOSE, | | | [facility] | | | POC | | | [facility] | | | | | | OF CARE | | | | | | TESTS | | + +---------+ + + + + + | Specimen | + + | Blood | + + + + + + + | Performing | Address | City/State/Zipcode | Phone Number | | Organization | | | | + + + + + | [facility] | [address] | [place], [place] | | | [facility] | [address] | [address] | | | TESTS | | | | + + + + + CAPILLARY BLOOD GLUCOSE (NO CHG), POC (08/11/2019 3:03 PM PDT) + +---------+ + + + | Component | Value | Ref Range | Performed | Pathologist | | | | | At | Signature | + +---------+ + + + | BLOOD | 129 (H) | 70 - 99 mg/dL | [facility] | | | GLUCOSE, | | | [facility] | | | POC | | | [facility] | | | | | | OF CARE | | | | | | TESTS | | + +---------+ + + + + + | Specimen | + + | Blood | + + + + + + + | Performing | Address | City/State/Zipcode | Phone Number | | Organization | | | | + + + + + | [facility] | [address] | [place], [place] | | | [facility] | [facility] | [address] | | | TESTS | | | | + + + + + CAPILLARY BLOOD GLUCOSE (NO CHG), POC (08/11/2019 1:26 PM PDT) + +---------+ + + + | Component | Value | Ref Range | Performed | Pathologist | | | | | At | Signature | + +---------+ + + + | BLOOD | 124 (H) | 70 - 99 mg/dL | [facility] - | | | GLUCOSE, | | | [facility] | | | POC | | | [facility] | | | | | | OF CARE | | | | | | TESTS | | + +---------+ + + + + + | Specimen | + + | Blood | + + + + + + + | Performing | Address | City/State/Zipcode | Phone Number | | Organization | | | | + + + + + | [facility] | [address] | [place], [place] | | | [facility] | [address] | [address] | | | TESTS | | | | + + + + + CAPILLARY BLOOD GLUCOSE (NO CHG), POC (08/11/2019 7:43 AM PDT) + +---------+ + + + | Component | Value | Ref Range | Performed | Pathologist | | | | | At | Signature | + +---------+ + + + | BLOOD | 239 (H) | 70 - 99 mg/dL | [facility] - | | | GLUCOSE, | | | [facility] | | | POC | | | [facility] | | | | | | OF CARE | | | | | | TESTS | | + +---------+ + + + + + | Specimen | + + | Blood | + + + + + + + | Performing | Address | City/State/Zipcode | Phone Number | | Organization | | | | + + + + + | [facility] | [address] | [place], [place] | | | [facility] | [address] | [address] | | | TESTS | | | | + + + + + CAPILLARY BLOOD GLUCOSE (NO CHG), POC (08/11/2019 7:31 AM PDT) + +---------+ + + + | Component | Value | Ref Range | Performed | Pathologist | | | | | At | Signature | + +---------+ + + + | BLOOD | 236 (H) | 70 - 99 mg/dL | [facility] | | | GLUCOSE, | | | [facility] | | | POC | | | [facility] | | | | | | OF CARE | | | | | | TESTS | | + +---------+ + + + + + | Specimen | + + | Blood | + + + + + + + | Performing | Address | City/State/Zipcode | Phone Number | | Organization | | | | + + + + + | [facility] | [address] | [place], [place] | | | [facility] | [facility] | [address] | | | TESTS | | | | + + + + + CBC (HEMOGRAM) ONLY (08/11/2019 5:48 AM PDT) + + + + + + | Component | Value | Ref Range | Performed | Pathologist | | | | | At | Signature | + + + + + + | WHITE CELL | 4.14 | 3.50 - 10.80 | [facility] | | | COUNT | | K/cu mm | LABORATORY | | | | | | SERVICES, | | | | | | CORE | | + + + + + + | RED CELL | 1.95 (L) | 4.50 - 6.00 | [facility] | | | COUNT | | M/cu mm | LABORATORY | | | | | | SERVICES, | | | | | | CORE | | + + + + + + | HEMOGLOBIN | 6.9 (L) | 13.5 - 17.5 | [facility] | | | | | g/dL | LABORATORY | | | | | | SERVICES, | | | | | | CORE | | + + + + + + | HEMATOCRIT | 20.4 (L) | 41.0 - 53.0 % | [facility] | | | | | | LABORATORY | | | | | | SERVICES, | | | | | | CORE | | + + + + + + | MCV | 104.6 (H) | 80.0 - 100.0 fL | [facility] | | | | | | LABORATORY | | | | | | SERVICES, | | | | | | CORE | | + + + + + + | MCHC | 33.8 | 32.0 - 36.0 | [facility] | | | | | g/dL | LABORATORY | | | | | | SERVICES, | | | | | | CORE | | + + + + + + | RDW SD | 77.1 (H) | 35.1 - 46.3 fL | [facility] | | | | | | LABORATORY | | | | | | SERVICES, | | | | | | CORE | | + + + + + + | PLATELET | 54 (L) | 150 - 400 K/cu | [facility] | | | COUNT | | mm | LABORATORY | | | | | | SERVICES, | | | | | | CORE | | + + + + + + | MPV | 11.2 | 9.7 - 12.3 fL | [facility] [...] + | [facility] | [address] | [place] [address] | | | SERVICES, CORE | [address] | | | + + + + + COAGULOPATHY PANEL (INR,APTT,FIBRINOGEN) (08/11/2019 5:48 AM PDT) + + + + + + | Component | Value | Ref Range | Performed | Pathologist | | | | | At | Signature | + + + + + + | INR | 3.42 (H) | 0.90 - 1.20 INR | [facility] | | | | | | LABORATORY | | | | | | SERVICES, | | | | | | CORE | | + + + + + + | APTT | 71.4 (H) | 26.0 - 36.0 | [facility] | | | | | seconds | LABORATORY | | | | | | SERVICES, | | | | | | CORE | | + + + + + + | FIBRINOGEN | 137 (L) | 150 - 450 mg/dL | [facility] | | | LEVEL | | | LABORATORY | | | [...] Therapeutic ranges for full anticoagulation: INR for | [facility] | | Venous Thromboembolism (2.0 - 3.0) INR INR for | LABORATORY | | most patients with mech. valves (2.5 - 3.5) INR APTT values for | SERVICES, CORE | | monitoring heparin therapy may be affected by specimens processed >1 | | | hour after collection. APTT Therapeutic Range: | | | (75 - 120) sec Heparin levels of 0.35 - 0.7 U/mL | | | | | + + + + + + + + | Performing | Address | City/State/Zipcode | Phone Number | | Organization | | | | + + + + + | [facility] | [address] | [place] [address] | | | SERVICES, ARTIS | [address] | | | + + + + + COMPLETE METABOLIC SET (NA,K,CL,CO2,BUN,CREAT,GLUC,CA,AST,ALT,BILI TOTAL,ALK PHOS,ALB,PROT TOTAL) (08/11/2019 5:48 AM PDT) + + + + + + | Component | Value | Ref Range | Performed | Pathologist | | | | | At | Signature | + + + + + + | GLUCOSE, | 199 (H) | 70 - 99 mg/dL | [facility] | | | PLASMA | | | LABORATORY | | | (LAB) | | | SERVICES, | | | | | | CORE | | + + + + + + | BUN, PLASMA | 73 (H) | 6 - 20 mg/dL | [facility] | | | (LAB) | | | LABORATORY | | | | | | SERVICES, | | | | | | CORE | | + + + + + + | CREATININE | 1.31 (H) | 0.70 - 1.30 | [facility] | | | PLASMA | | mg/dL | LABORATORY | | | (LAB) | | | SERVICES, | | | | | | CORE | | + + + + + + | EGFR | >60 | >60 mL/min | [facility] | | | - | | | LABORATORY | | | [place] | | | SERVICES, | | | | | | CORE | | + + + + + + | EGFR NON | 57 (L) | >60 mL/min | [facility] | | | -[facility]ARR[facility] | | | LABORATORY | | | RICAN | | | SERVICES, | | | | | | CORE | | + + + + + + | SODIUM, | 133 (L) | 136 - 145 | [facility] | | | PLASMA | | mmol/L | LABORATORY | | | (LAB) | | | SERVICES, | | | | | | CORE | | + + + + + + | POTASSIUM, | 4.6 | 3.4 - 5.0 | [facility] | [...] + + + | TOTAL CO2, | 20 (L) | 21 - 32 mmol/L | [facility] | | | PLASMA | | | LABORATORY | | | (LAB) | | | SERVICES, | | | | | | CORE | | + + + + + + | CALCIUM, | 8.7 | 8.6 - 10.2 | [facility] | [...] + + + + | BILIRUBIN | 9.5 (H) | 0.3 - 1.2 mg/dL | [facility] | | | TOTAL | | | LABORATORY | | | | | | SERVICES, | | | | | | CORE | | + + + + + + | TOTAL | 6.4 | 6.4 - 8.2 g/dL | [facility] | | | PROTEIN, | | | LABORATORY | | | PLASMA | | | SERVICES, | | | (LAB) | | | CORE | | + + + + + + | ALBUMIN, | 3.1 (L) | 3.5 - 4.7 g/dL | [facility] | | | PLASMA | | | LABORATORY | | | (LAB) | | | SERVICES, | | | | | | CORE | | + + + + + + | ALK PHOS | 211 (H) | 53 - 128 U/L | [facility] | | | | | | LABORATORY | | | | | | SERVICES, | | | | | | CORE | | + + + + + + | AST(SGOT) | 91 (H) | <=41 U/L | [facility] | [...] + + + | ANION GAP | 10 | 4 - 11 mmol/L | [facility] | | | | | | LABORATORY | | | | | | SERVICES, | | | | | | CORE | | + + + + + + | ANION | 12 (H) | 4 - 11 [...] MDRD equation recommended by the National | [facility] | | Kidney Disease Education Program. Estimated GFR Interpretive | LABORATORY | | Information: <60 mL/min/1.73 sq m Chronic Kidney | SERVICES, [facility] | | Disease <15 mL/min/1.73 sq m [...] | + + + + + | [facility] | [address] | [place] [address] | | | CLAUDIA, ARTIS | [address] | | | + + + + + PHOSPHORUS, PLASMA (08/11/2019 5:48 AM PDT) + +-------+ + + + | Component | Value | Ref Range | Performed | Pathologist | | | | | At | Signature | + +-------+ + + + | PHOSPHORUS, | 3.9 | 2.4 - 4.7 mg/dL | [facility] [...] | + + + + + | [facility] | [address] | [place] [address] | | | SERVICES, CORE | [address] | | | + + + + + MAGNESIUM, PLASMA (08/11/2019 5:48 AM PDT) + +-------+ + + + | Component | Value | Ref Range | Performed | Pathologist | | | | | At | Signature | + +-------+ + + + | MAGNESIUM,P | 2.4 | 1.6 - 2.6 mg/dL | [place] | | | LASMA | | | [...] | + + + + + | [facility] | [address] | [place] [address] | | | SERVICES, ARTIS | [address] | | | + + + + + CAPILLARY BLOOD GLUCOSE (NO CHG), POC (08/11/2019 2:50 AM PDT) + +---------+ + + + | Component | Value | Ref Range | Performed | Pathologist | | | | | At | Signature | + +---------+ + + + | BLOOD | 173 (H) | 70 - 99 mg/dL | [facility] | | | [facility], | | | [facility] | | | POC | | | [facility] | | | | | | [facility] | | | | | | TESTS | | + +---------+ + + + + + | Specimen | + + | Blood | + + + + + + + | Performing | Address | City/State/Zipcode | Phone Number | | Organization | | | | + + + + + | [facility] | [address] | [place], [place] | | | [facility] | [address] | [address] | | | TESTS | | | | + + + + + CAPILLARY BLOOD GLUCOSE (NO CHG), POC (08/10/2019 11:09 PM PDT) + +-------+ + + + | Component | Value | Ref Range | Performed | Pathologist | | | | | At | Signature | + +-------+ + + + | BLOOD | 95 | 70 - 99 mg/dL | [facility] | | | GLU[facility], | | | [place] | | | POC | | | [facility] | | | | | | [facility]ARE | | | | | | TESTS | | + +-------+ + + + + + | Specimen | + + | Blood | + + + + + + + | Performing | Address | City/State/Zipcode | Phone Number | | Organization | | | | + + + + + | [facility] | [address] | [place], [place] | | | [facility] | [facility] | [address] | | | TESTS | | | | + + + + + CAPILLARY BLOOD GLUCOSE (NO CHG), POC (08/10/2019 8:44 PM PDT) + +-------+ + + + | Component | Value | Ref Range | Performed | Pathologist | | | | | At | Signature | + +-------+ + + + | BLOOD | 87 | 70 - 99 mg/dL | [facility] | | | GLUCOSE, | | | [place] | | | POC | | | [facility] | | | | | | OF [facility]ARE | | | | | | TESTS | | + +-------+ + + + + + | Specimen | + + | Blood | + + + + + + + | Performing | Address | City/State/Zipcode | Phone Number | | Organization | | | | + + + + + | [facility] | [phone] | [place], [place] | | | [facility] | [address] | [address] | | | TESTS | | | | + + + + + CAPILLARY BLOOD GLUCOSE (NO CHG), POC (08/10/2019 3:29 PM PDT) + +---------+ + + + | Component | Value | Ref Range | Performed | Pathologist | | | | | At | Signature | + +---------+ + + + | BLOOD | 100 (H) | 70 - 99 mg/dL | [facility] | | | GLUCO[facility], | | | [place] | | | POC | | | [facility] | | | | | | [facility] | | | | | | TESTS | | + +---------+ + + + + + | Specimen | + + | Blood | + + + + + + + | Performing | Address | City/State/Zipcode | Phone Number | | Organization | | | | + + + + + | [facility] | [address] | [place] | | | [facility] | [address] | [address] | | | TESTS | | | | + + + + + CAPILLARY BLOOD GLUCOSE (NO CHG), POC (08/10/2019 7:33 AM PDT) + +---------+ + + + | Component | Value | Ref Range | Performed | Pathologist | | | | | At | Signature | + +---------+ + + + | BLOOD | 195 (H) | 70 - 99 mg/dL | [facility] | | | GLU[facility], | | | [place] | | | POC | | | [place] | | | | | | [facility] CARE | | | | | | TESTS | | + +---------+ + + + + + | Specimen | + + | Blood | + + + + + + + | Performing | Address | City/State/Zipcode | Phone Number | | Organization | | | | + + + + + | [facility] | [address] | [place], [place] | | | [facility] | [facility] | [address] | | | TESTS | | | | + + + + + CAPILLARY BLOOD GLUCOSE (NO CHG), POC (08/10/2019 6:33 AM PDT) + +---------+ + + + | Component | Value | Ref Range | Performed | Pathologist | | | | | At | Signature | + +---------+ + + + | BLOOD | 188 (H) | 70 - 99 mg/dL | [facility] | | | GLUCO[facility], | | | [place] | | | POC | | | [facility] | | | | | | [facility]ARE | | | | | | TESTS | | + +---------+ + + + + + | Specimen | + + | Blood | + + + + + + + | Performing | Address | City/State/Zipcode | Phone Number | | Organization | | | | + + + + + | [facility] | [phone] | [place], [place] | | | [facility] | [address] | [address] | | | TESTS | | | | + + + + + CBC (HEMOGRAM) ONLY (08/10/2019 4:49 AM PDT) + + + + + + | Component | Value | Ref Range | Performed | Pathologist | | | | | At | Signature | + + + + + + | WHITE CELL | 4.55 | 3.50 - 10.80 | [facility] | | | COUNT | | K/cu mm | LABORATORY | | | | | | SERVICES, | | | | | | CORE | | + + + + + + | RED CELL | 1.94 (L) | 4.50 - 6.00 | [facility] | | | COUNT | | M/cu mm | LABORATORY | | | | | | SERVICES, | | | | | | CORE | | + + + + + + | HEMOGLOBIN | 6.8 (L) | 13.5 - 17.5 | [facility] | | | | | g/dL | LABORATORY | | | | | | SERVICES, | | | | | | CORE | | + + + + + + | HEMATOCRIT | 20.5 (L) | 41.0 - 53.0 % | [facility] | | | | | | LABORATORY | | | | | | SERVICES, | | | | | | CORE | | + + + + + + | MCV | 105.7 (H) | 80.0 - 100.0 fL | [facility] | | | | | | LABORATORY | | | | | | SERVICES, | | | | | | CORE | | + + + + + + | MCHC | 33.2 | 32.0 - 36.0 | [facility] | | | | | g/dL | LABORATORY | | | | | | SERVICES, | | | | | | CORE | | + + + + + + | RDW SD | 77.4 (H) | 35.1 - 46.3 fL | [facility] | | | | | | LABORATORY | | | | | | SERVICES, | | | | | | CORE | | + + + + + + | PLATELET | 49 (L) | 150 - 400 K/cu | [facility] | | | COUNT | | mm | LABORATORY | | | | | | SERVICES, | | | | | | CORE | | + + + + + + | MPV | 11.5 | 9.7 - 12.3 fL | [facility] | | | | | | LABORATORY | | | | | | SERVICES, | | | | | | CORE | | + + + + + + | NRBC% | 0.4 (H) | 0.0 - 0.3 % | [facility] | | | | | | LABORATORY | | | | | | SERVICES, | | | | | | CORE | | + + + + + + | NRBC# | 0.02 | 0.00 - 0.02 | [facility] | [...] [facility] | [address] | [place] [address] | | | SERVICES, CORE | [address] | | | + + + + + COAGULOPATHY PANEL (INR,APTT,FIBRINOGEN) (08/10/2019 4:49 AM PDT) + + + + + + | Component | Value | Ref Range | Performed | Pathologist | | | | | At | Signature | + + + + + + | INR | 3.29 (H) | 0.90 - 1.20 INR | [facility] | | | | | | LABORATORY | | | | | | SERVICES, | | | | | | CORE | | + + + + + + | APTT | 74.2 (H) | 26.0 - 36.0 | [facility] | | | | | seconds | LABORATORY | | | | | | SERVICES, | | | | | | CORE | | + + + + + + | FIBRINOGEN | 139 (L) | 150 - 450 mg/dL | [facility] | | | LEVEL | | | LABORATORY | | | [...] Therapeutic ranges for full anticoagulation: INR for | [facility] | | Venous Thromboembolism (2.0 - 3.0) INR INR for | LABORATORY | | most patients with mech. valves (2.5 - 3.5) INR APTT values for | SERVICES, CORE | | monitoring heparin therapy may be affected by specimens processed >1 | | | hour after collection. APTT Therapeutic Range: | | | (75 - 120) sec Heparin levels of 0.35 - 0.7 U/mL | | | | | + + + + + + + + | Performing | Address | City/State/Zipcode | Phone Number | | Organization | | | | + + + + + | [facility] | [address] | [place] [address] | | | SERVICES, CORE | [address] | | | + + + + + COMPLETE METABOLIC SET (NA,K,CL,CO2,BUN,CREAT,GLUC,CA,AST,ALT,BILI TOTAL,ALK PHOS,ALB,PROT TOTAL) (08/10/2019 4:49 AM PDT) + + + + + + | Component | Value | Ref Range | Performed | Pathologist | | | | | At | Signature | + + + + + + | GLUCOSE, | 145 (H) | 70 - 99 mg/dL | [facility] | | | PLASMA | | | LABORATORY | | | (LAB) | | | SERVICES, | | | | | | CORE | | + + + + + + | BUN, PLASMA | 71 (H) | 6 - 20 mg/dL | [facility] | | | (LAB) | | | LABORATORY | | | | | | SERVICES, | | | | | | CORE | | + + + + + + | CREATININE | 1.40 (H) | 0.70 - 1.30 | [facility] | | | PLASMA | | mg/dL | LABORATORY | | | (LAB) | | | SERVICES, | | | | | | CORE | | + + + + + + | EGFR | >60 | >60 mL/min | [facility] | | | - | | | LABORATORY | | | [facility] | | | SERVICES, | | | | | | CORE | | + + + + + + | EGFR NON | 53 (L) | >60 mL/min | [facility] | | | -JARRED | | | LABORATORY | | | RICAN | | | SERVICES, | | | | | | CORE | | + + + + + + | SODIUM, | 130 (L) | 136 - 145 | [facility] | | | PLASMA | | mmol/L | LABORATORY | | | (LAB) | | | SERVICES, | | | | | | CORE | | + + + + + + | POTASSIUM, | 4.6 | 3.4 - 5.0 | [facility] | | | PLASMA | | mmol/L | LABORATORY | | | (LAB) | | | SERVICES, | | | | | | CORE | | + + + + + + | CHLORIDE, | 101 | 97 - 108 mmol/L | [facility] | | | PLASMA | | | LABORATORY | | | (LAB) | | | SERVICES, | | | | | | CORE | | + + + + + + | TOTAL CO2, | 19 (L) | 21 - 32 mmol/L | [facility] | | | PLASMA | | | LABORATORY | | | (LAB) | | | SERVICES, | | | | | | CORE | | + + + + + + | CALCIUM, | 8.9 | 8.6 - 10.2 | [facility] | | | PLASMA | | mg/dL | LABORATORY | | | (LAB) | | | SERVICES, | | | | | | CORE | | + + + + + + | CALCIUM(ALB | 9.7 | 8.6 - 10.2 | [facility] | | | CORRECTED) | | mg/dL | LABORATORY | | | | | | SERVICES, | | | | | | CORE | | + + + + + + | BILIRUBIN | 8.8 (H) | 0.3 - 1.2 mg/dL | [facility] | | | TOTAL | | | LABORATORY | | | | | | SERVICES, | | | | | | CORE | | + + + + + + | TOTAL | 6.5 | 6.4 - 8.2 g/dL | [facility] | | | PROTEIN, | | | LABORATORY | | | PLASMA | | | SERVICES, | | | (LAB) | | | CORE | | + + + + + + | ALBUMIN, | 3.0 (L) | 3.5 - 4.7 g/dL | [facility] | | | PLASMA | | | LABORATORY | | | (LAB) | | | SERVICES, | | | | | | CORE | | + + + + + + | ALK PHOS | 212 (H) | 53 - 128 U/L | [facility] | | | | | | LABORATORY | | | | | | SERVICES, | | | | | | CORE | | + + + + + + | AST(SGOT) | 82 (H) | <=41 U/L | [facility] | | | | | | LABORATORY | | | | | | SERVICES, | | | | | | CORE | | + + + + + + | ALT (SGPT) | 54 | <=60 U/L | [facility] | | | | | | LABORATORY | | | | | | SERVICES, | | | | | | CORE | | + + + + + + | ANION GAP | 10 | 4 - 11 mmol/L | [facility] | | | | | | LABORATORY | | | | | | SERVICES, | | | | | | CORE | | + + + + + + | ANION | 12 (H) | 4 - 11 [...] MDRD equation recommended by the National | [facility] | | Kidney Disease Education Program. Estimated [...] + | [facility] | [address] | [place] [address] | | | SERVICES, CORE | [address] | | | + + + + + PHOSPHORUS, PLASMA (08/10/2019 4:49 AM PDT) + +-------+ + + + | Component | Value | Ref Range | Performed | Pathologist | | | | | At | Signature | + +-------+ + + + | PHOSPHORUS, | 3.1 | 2.4 - 4.7 mg/dL | [facility] [...] | + + + + + | [facility] [employer] | [address] | [place] [address] | | | SERVICES, CORE | [address] | | | + + + + + MAGNESIUM, PLASMA (08/10/2019 4:49 AM PDT) + +-------+ + + + | Component | Value | Ref Range | Performed | Pathologist | | | | | At | Signature | + +-------+ + + + | MAGNESIUM,P | 2.6 | 1.6 - 2.6 mg/dL | [facility] | | | [facility] | | | LABORATORY | | | [...] + | [facility] | [address] | [place] [address] | | | [place] | [address] | | | + + + + + CAPILLARY BLOOD GLUCOSE (NO CHG), POC (08/10/2019 2:45 AM PDT) + +---------+ + + + | Component | Value | Ref Range | Performed | Pathologist | | | | | At | Signature | + +---------+ + + + | BLOOD | 159 (H) | 70 - 99 mg/dL | [facility] | | | GLUCOSE, | | | [facility] | | | POC | | | [facility] | | | | | | OF CARE | | | | | | TESTS | | + +---------+ + + + + + | Specimen | + + | Blood | + + + + + + + | Performing | Address | City/State/Zipcode | Phone Number | | Organization | | | | + + + + + | [facility] | [address] | [place], [place] | | | [facility] | [address] | [address] | | | TESTS | | | | + + + + + CAPILLARY BLOOD GLUCOSE (NO CHG), POC (08/09/2019 10:02 PM PDT) + +---------+ + + + | Component | Value | Ref Range | Performed | Pathologist | | | | | At | Signature | + +---------+ + + + | BLOOD | 100 (H) | 70 - 99 mg/dL | [facility] | | | GLUCOSE, | | | [facility] | | | POC | | | [facility] | | | | | | OF CARE | | | | | | TESTS | | + +---------+ + + + + + | Specimen | + + | Blood | + + + + + + + | Performing | Address | City/State/Zipcode | Phone Number | | Organization | | | | + + + + + | [facility] | [address] | [place], [place] | | | [facility] | [address] | [address] | | | TESTS | | | | + + + + + CAPILLARY BLOOD GLUCOSE (NO CHG), POC (08/09/2019 5:12 PM PDT) + +-------+ + + + | Component | Value | Ref Range | Performed | Pathologist | | | | | At | Signature | + +-------+ + + + | BLOOD | 90 | 70 - 99 mg/dL | [facility] - | | | GLUCOSE, | | | [facility] | | | POC | | | [facility] | | | | | | OF CARE | | | | | | TESTS | | + +-------+ + + + + + | Specimen | + + | Blood | + + + + + + + | Performing | Address | City/State/Zipcode | Phone Number | | Organization | | | | + + + + + | [facility] | [address] | [place], [place] | | | [facility] | [address] | [address] | | | TESTS | | | | + + + + + CAPILLARY BLOOD GLUCOSE (NO CHG), POC (08/09/2019 12:07 PM PDT) + +---------+ + + + | Component | Value | Ref Range | Performed | Pathologist | | | | | At | Signature | + +---------+ + + + | BLOOD | 121 (H) | 70 - 99 mg/dL | [facility] | | | GLUCOSE, | | | [facility] | | | POC | | | [facility] | | | | | | OF CARE | | | | | | TESTS | | + +---------+ + + + + + | Specimen | + + | Blood | + + + + + + + | Performing | Address | City/State/Zipcode | Phone Number | | Organization | | | | + + + + + | [facility] | [address] | [place], [place] | | | [facility] | [address] | [address] | | | TESTS | | | | + + + + + CAPILLARY BLOOD GLUCOSE (NO CHG), POC (08/09/2019 7:50 AM PDT) + +---------+ + + + | Component | Value | Ref Range | Performed | Pathologist | | | | | At | Signature | + +---------+ + + + | BLOOD | 272 (H) | 70 - 99 mg/dL | [facility] - | | | GLUCOSE, | | | [facility] | | | POC | | | [facility] | | | | | | OF CARE | | | | | | TESTS | | + +---------+ + + + + + | Specimen | + + | Blood | + + + + + + + | Performing | Address | City/State/Zipcode | Phone Number | | Organization | | | | + + + + + | [facility] | [phone] | [place], [place] | | | [facility] | [address] | [address] | | | TESTS | | | | + + + + + CBC (HEMOGRAM) ONLY (08/09/2019 4:39 AM PDT) + + + + + + | Component | Value | Ref Range | Performed | Pathologist | | | | | At | Signature | + + + + + + | WHITE CELL | 4.27 | 3.50 - 10.80 | [facility] | | | COUNT | | K/cu mm | LABORATORY | | | | | | SERVICES, | | | | | | CORE | | + + + + + + | RED CELL | 2.00 (L) | 4.50 - 6.00 | [facility] | | | COUNT | | M/cu mm | LABORATORY | | | | | | SERVICES, | | | | | | CORE | | + + + + + + | HEMOGLOBIN | 6.9 (L) | 13.5 - 17.5 | [facility] | | | | | g/dL | LABORATORY | | | | | | SERVICES, | | | | | | CORE | | + + + + + + | HEMATOCRIT | 21.2 (L) | 41.0 - 53.0 % | [facility] | | | | | | LABORATORY | | | | | | SERVICES, | | | | | | CORE | | + + + + + + | MCV | 106.0 (H) | 80.0 - 100.0 fL | [facility] | | | | | | LABORATORY | | | | | | SERVICES, | | | | | | CORE | | + + + + + + | MCHC | 32.5 | 32.0 - 36.0 | [facility] | | | | | g/dL | LABORATORY | | | | | | SERVICES, | | | | | | CORE | | + + + + + + | RDW SD | 78.1 (H) | 35.1 - 46.3 fL | [facility] | | | | | | LABORATORY | | | | | | SERVICES, | | | | | | CORE | | + + + + + + | PLATELET | 52 (L) | 150 - 400 K/cu | [facility] | | | COUNT | | mm | LABORATORY | | | | | | SERVICES, | | | | | | CORE | | + + + + + + | MPV | 12.0 | 9.7 - 12.3 fL | [facility] | | | | | | LABORATORY | | | | | | SERVICES, | | | | | | CORE | | + + + + + + | NRBC% | 0.5 (H) | 0.0 - 0.3 % | [facility] | | | | | | LABORATORY | | | | | | SERVICES, | | | | | | CORE | | + + + + + + | NRBC# | 0.02 | 0.00 - 0.02 | [facility] | [...] | + + + + + | [facility] | [address] | [place] [address] | | | SERVICES, CORE | [address] | | | + + + + + COAGULOPATHY PANEL (INR,APTT,FIBRINOGEN) (08/09/2019 4:39 AM PDT) + + + + + + | Component | Value | Ref Range | Performed | Pathologist | | | | | At | Signature | + + + + + + | INR | 3.14 (H) | 0.90 - 1.20 INR | [facility] | | | | | | LABORATORY | | | | | | SERVICES, | | | | | | CORE | | + + + + + + | APTT | 74.2 (H) | 26.0 - 36.0 | [facility] | | | | | seconds | LABORATORY | | | | | | SERVICES, | | | | | | CORE | | + + + + + + | FIBRINOGEN | 139 (L) | 150 - 450 mg/dL | [facility] | | | LEVEL | | | LABORATORY | | | [...] Therapeutic ranges for full anticoagulation: INR for | [facility] | | Venous Thromboembolism (2.0 - 3.0) INR INR for | LABORATORY | | most patients with mech. valves (2.5 - 3.5) INR APTT values for | SERVICES, CORE | | monitoring heparin therapy may be affected by specimens processed >1 | | | hour after collection. APTT Therapeutic Range: | | | (75 - 120) sec Heparin levels of 0.35 - 0.7 U/mL | | | | | + + + + + + + + | Performing | Address | City/State/Zipcode | Phone Number | | Organization | | | | + + + + + | [facility] | [address] | [place] [address] | | | SERVICES, CORE | [address] | | | + + + + + COMPLETE METABOLIC SET (NA,K,CL,CO2,BUN,CREAT,GLUC,CA,AST,ALT,BILI TOTAL,ALK PHOS,ALB,PROT TOTAL) (08/09/2019 4:39 AM PDT) + + + + + + | Component | Value | Ref Range | Performed | Pathologist | | | | | At | Signature | + + + + + + | GLUCOSE, | 217 (H) | 70 - 99 mg/dL | [facility] | | | PLASMA | | | LABORATORY | | | (LAB) | | | SERVICES, | | | | | | CORE | | + + + + + + | BUN, PLASMA | 74 (H) | 6 - 20 mg/dL | [facility] | | | (LAB) | | | LABORATORY | | | | | | SERVICES, | | | | | | CORE | | + + + + + + | CREATININE | 1.41 (H) | 0.70 - 1.30 | [facility] | | | PLASMA | | mg/dL | LABORATORY | | | (LAB) | | | SERVICES, | | | | | | CORE | | + + + + + + | EGFR | >60 | >60 mL/min | [facility] | | | - | | | LABORATORY | | | [place] | | | SERVICES, | | | | | | CORE | | + + + + + + | EGFR NON | 52 (L) | >60 mL/min | [facility] | | | -JARRED | | | LABORATORY | | | RICAN | | | SERVICES, | | | | | | CORE | | + + + + + + | SODIUM, | 128 (L) | 136 - 145 | [facility] | | | PLASMA | | mmol/L | LABORATORY | | | (LAB) | | | SERVICES, | | | | | | CORE | | + + + + + + | POTASSIUM, | 4.8 | 3.4 - 5.0 | [facility] | | | PLASMA | | mmol/L | LABORATORY | | | (LAB) | | | SERVICES, | | | | | | CORE | | + + + + + + | CHLORIDE, | 101 | 97 - 108 mmol/L | [facility] | | | PLASMA | | | LABORATORY | | | (LAB) | | | SERVICES, | | | | | | CORE | | + + + + + + | TOTAL CO2, | 20 (L) | 21 - 32 mmol/L | [facility] | | | PLASMA | | | LABORATORY | | | (LAB) | | | SERVICES, | | | | | | CORE | | + + + + + + | CALCIUM, | 9.0 | 8.6 - 10.2 | [facility] | [...] + + + + | BILIRUBIN | 9.9 (H) | 0.3 - 1.2 mg/dL | [facility] | | | TOTAL | | | LABORATORY | | | | | | SERVICES, | | | | | | CORE | | + + + + + + | TOTAL | 6.7 | 6.4 - 8.2 g/dL | [facility] [...] + + + | ALK PHOS | 208 (H) | 53 - 128 U/L | [facility] | | | | | | LABORATORY | | | | | | SERVICES, | | | | | | CORE | | + + + + + + | AST(SGOT) | 91 (H) | <=41 U/L | [facility] | | | | | | LABORATORY | | | | | | SERVICES, | | | | | | CORE | | + + + + + + | ALT (SGPT) | 61 (H) | <=60 U/L | [facility] | | | | | | LABORATORY | | | | | | SERVICES, | | | | | | CORE | | + + + + + + | ANION GAP | 7 | 4 - 11 mmol/L | [facility] | | | | | | LABORATORY | | | | | | SERVICES, | | | | | | CORE | | + + + + + + | ANION | 8 | 4 - 11 mmol/L | [facility] [...] MDRD equation recommended by the National | [facility] | | Kidney Disease Education Program. Estimated [...] + | [facility] | [address] | [place] [address] | | | SERVICES, CORE | [address] | | | + + + + + PHOSPHORUS, PLASMA (08/09/2019 4:39 AM PDT) + +-------+ + + + | Component | Value | Ref Range | Performed | Pathologist | | | | | At | Signature | + +-------+ + + + | PHOSPHORUS, | 3.3 | 2.4 - 4.7 mg/dL | [facility] [...] | + + + + + | [facility] | [address] | [place] [address] | | | SERVICES, CORE | [address] | | | + + + + + MAGNESIUM, PLASMA (08/09/2019 4:39 AM PDT) + +-------+ + + + | Component | Value | Ref Range | Performed | Pathologist | | | | | At | Signature | + +-------+ + + + | MAGNESIUM,P | 2.3 | 1.6 - 2.6 mg/dL | [facility] [...] | + + + + + | [facility] | [address] | [place] [address] | | | SERVICES, ARTIS | [address] | | | + + + + + CAPILLARY BLOOD GLUCOSE (NO CHG), POC (08/09/2019 3:34 AM PDT) + +---------+ + + + | Component | Value | Ref Range | Performed | Pathologist | | | | | At | Signature | + +---------+ + + + | BLOOD | 211 (H) | 70 - 99 mg/dL | [facility] | | | GLUCOSE, | | | [facility] | | | POC | | | [facility] | | | | | | OF CARE | | | | | | TESTS | | + +---------+ + + + + + | Specimen | + + | Blood | + + + + + + + | Performing | Address | City/State/Zipcode | Phone Number | | Organization | | | | + + + + + | [facility] | [address] | [place], [place] | | | [facility] | [facility] | [address] | | | TESTS | | | | + + + + + CAPILLARY BLOOD GLUCOSE (NO CHG), POC (08/09/2019 2:49 AM PDT) + +---------+ + + + | Component | Value | Ref Range | Performed | Pathologist | | | | | At | Signature | + +---------+ + + + | BLOOD | 187 (H) | 70 - 99 mg/dL | [facility] - | | | GLUCOSE, | | | [facility] | | | POC | | | [facility] | | | | | | OF CARE | | | | | | TESTS | | + +---------+ + + + + + | Specimen | + + | Blood | + + + + + + + | Performing | Address | City/State/Zipcode | Phone Number | | Organization | | | | + + + + + | [facility] | [address] | [place], [place] | | | [facility] | [address] | [address] | | | TESTS | | | | + + + + + CAPILLARY BLOOD GLUCOSE (NO CHG), POC (08/08/2019 9:39 PM PDT) + +-------+ + + + | Component | Value | Ref Range | Performed | Pathologist | | | | | At | Signature | + +-------+ + + + | BLOOD | 99 | 70 - 99 mg/dL | [facility] - | | | GLUCOSE, | | | [facility] | | | POC | | | [facility] | | | | | | OF CARE | | | | | | TESTS | | + +-------+ + + + + + | Specimen | + + | Blood | + + + + + + + | Performing | Address | City/State/Zipcode | Phone Number | | Organization | | | | + + + + + | [facility] | [address] | [place], [place] | | | [facility] | [facility] | [address] | | | TESTS | | | | + + + + + CAPILLARY BLOOD GLUCOSE (NO CHG), POC (08/08/2019 6:32 PM PDT) + +---------+ + + + | Component | Value | Ref Range | Performed | Pathologist | | | | | At | Signature | + +---------+ + + + | BLOOD | 140 (H) | 70 - 99 mg/dL | [facility] | | | GLUCOSE, | | | [facility] | | | POC | | | [facility] | | | | | | OF CARE | | | | | | TESTS | | + +---------+ + + + + + | Specimen | + + | Blood | + + + + + + + | Performing | Address | City/State/Zipcode | Phone Number | | Organization | | | | + + + + + | [facility] | [address] | [place], [place] | | | [facility] | [facility] | [address] | | | TESTS | | | | + + + + + CAPILLARY BLOOD GLUCOSE (NO CHG), POC (08/08/2019 12:36 PM PDT) + +---------+ + + + | Component | Value | Ref Range | Performed | Pathologist | | | | | At | Signature | + +---------+ + + + | BLOOD | 124 (H) | 70 - 99 mg/dL | [facility] - | | | GLUCOSE, | | | [facility] | | | POC | | | [facility] | | | | | | OF CARE | | | | | | TESTS | | + +---------+ + + + + + | Specimen | + + | Blood | + + + + + + + | Performing | Address | City/State/Zipcode | Phone Number | | Organization | | | | + + + + + | [facility] | [address] | [place], [place] | | | [facility] | [address] | [address] | | | TESTS | | | | + + + + + CAPILLARY BLOOD GLUCOSE (NO CHG), POC (08/08/2019 7:45 AM PDT) + +---------+ + + + | Component | Value | Ref Range | Performed | Pathologist | | | | | At | Signature | + +---------+ + + + | BLOOD | 274 (H) | 70 - 99 mg/dL | [facility] - | | | GLUCOSE, | | | [facility] | | | POC | | | [facility] | | | | | | OF CARE | | | | | | TESTS | | + +---------+ + + + + + | Specimen | + + | Blood | + + + + + + + | Performing | Address | City/State/Zipcode | Phone Number | | Organization | | | | + + + + + | [facility] | [address] | [place], [place] | | | [facility] | [facility] | [address] | | | TESTS | | | | + + + + + CBC (HEMOGRAM) ONLY (08/08/2019 5:18 AM PDT) + + + + + + | Component | Value | Ref Range | Performed | Pathologist | | | | | At | Signature | + + + + + + | WHITE CELL | 4.56 | 3.50 - 10.80 | [facility] | | | COUNT | | K/cu mm | LABORATORY | | | | | | SERVICES, | | | | | | CORE | | + + + + + + | RED CELL | 1.93 (L) | 4.50 - 6.00 | [facility] | | | COUNT | | M/cu mm | LABORATORY | | | | | | SERVICES, | | | | | | CORE | | + + + + + + | HEMOGLOBIN | 6.7 (L) | 13.5 - 17.5 | [facility] | | | | | g/dL | LABORATORY | | | | | | SERVICES, | | | | | | CORE | | + + + + + + | HEMATOCRIT | 20.3 (L) | 41.0 - 53.0 % | [facility] | | | | | | LABORATORY | | | | | | SERVICES, | | | | | | CORE | | + + + + + + | MCV | 105.2 (H) | 80.0 - 100.0 fL | [facility] | | | | | | LABORATORY | | | | | | SERVICES, | | | | | | CORE | | + + + + + + | MCHC | 33.0 | 32.0 - 36.0 | [facility] | | | | | g/dL | LABORATORY | | | | | | SERVICES, | | | | | | CORE | | + + + + + + | RDW SD | 75.0 (H) | 35.1 - 46.3 fL | [facility] | | | | | | LABORATORY | | | | | | SERVICES, | | | | | | CORE | | + + + + + + | PLATELET | 43 (L) | 150 - 400 K/cu | [facility] | | | COUNT | | mm | LABORATORY | | | | | | SERVICES, | | | | | | CORE | | + + + + + + | MPV | 11.0 | 9.7 - 12.3 fL | [facility] | | | | | | LABORATORY | | | | | | SERVICES, | | | | | | CORE | | + + + + + + | NRBC% | 0.4 (H) | 0.0 - 0.3 % | [facility] | | | | | | LABORATORY | | | | | | SERVICES, | | | | | | CORE | | + + + + + + | NRBC# | 0.02 | 0.00 - 0.02 | [facility] | [...] | + + + + + | [facility] | [address] | [place] [address] | | | SERVICES, CORE | [address] | | | + + + + + COAGULOPATHY PANEL (INR,APTT,FIBRINOGEN) (08/08/2019 5:18 AM PDT) + + + + + + | Component | Value | Ref Range | Performed | Pathologist | | | | | At | Signature | + + + + + + | INR | 3.51 (H) | 0.90 - 1.20 INR | [facility] | | | | | | LABORATORY | | | | | | SERVICES, | | | | | | CORE | | + + + + + + | APTT | 74.2 (H) | 26.0 - 36.0 | [facility] | | | | | seconds | LABORATORY | | | | | | SERVICES, | | | | | | CORE | | + + + + + + | FIBRINOGEN | 144 (L) | 150 - 450 mg/dL | [facility] | | | LEVEL | | | LABORATORY | | | [...] Therapeutic ranges for full anticoagulation: INR for | [facility] | | Venous Thromboembolism (2.0 - 3.0) INR INR for | LABORATORY | | most patients with mech. valves (2.5 - 3.5) INR APTT values for | SERVICES, CORE | | monitoring heparin therapy may be affected by specimens processed >1 | | | hour after collection. APTT Therapeutic Range: | | | (75 - 120) sec Heparin levels of 0.35 - 0.7 U/mL | | | | | + + + + + + + + | Performing | Address | City/State/Zipcode | Phone Number | | Organization | | | | + + + + + | [facility] | [address] | [place] [address] | | | SERVICES, CORE | [address] | | | + + + + + COMPLETE METABOLIC SET (NA,K,CL,CO2,BUN,CREAT,GLUC,CA,AST,ALT,BILI TOTAL,ALK PHOS,ALB,PROT TOTAL) (08/08/2019 5:18 AM PDT) + + + + + + | Component | Value | Ref Range | Performed | Pathologist | | | | | At | Signature | + + + + + + | GLUCOSE, | 242 (H) | 70 - 99 mg/dL | [facility] | | | PLASMA | | | LABORATORY | | | (LAB) | | | SERVICES, | | | | | | CORE | | + + + + + + | BUN, PLASMA | 66 (H) | 6 - 20 mg/dL | [facility] | | | (LAB) | | | LABORATORY | | | | | | SERVICES, | | | | | | CORE | | + + + + + + | CREATININE | 1.41 (H) | 0.70 - 1.30 | [facility] | | | PLASMA | | mg/dL | LABORATORY | | | (LAB) | | | SERVICES, | | | | | | CORE | | + + + + + + | EGFR | >60 | >60 mL/min | [facility] | | | - | | | LABORATORY | | | [place] | | | SERVICES, | | | | | | CORE | | + + + + + + | EGFR NON | 52 (L) | >60 mL/min | [facility] | | | -JARRED | | | LABORATORY | | | RICAN | | | SERVICES, | | | | | | CORE | | + + + + + + | SODIUM, | 129 (L) | 136 - 145 | [facility] [...] + + + + | CHLORIDE, | 101 | 97 - 108 mmol/L | [facility] | | | PLASMA | | | LABORATORY | | | (LAB) | | | SERVICES, | | | | | | CORE | | + + + + + + | TOTAL CO2, | 19 (L) | 21 - 32 mmol/L | [facility] | | | PLASMA | | | LABORATORY | | | (LAB) | | | SERVICES, | | | | | | CORE | | + + + + + + | CALCIUM, | 9.2 | 8.6 - 10.2 | [facility] | | | PLASMA | | mg/dL | LABORATORY | | | (LAB) | | | SERVICES, | | | | | | CORE | | + + + + + + | CALCIUM(ALB | 9.8 | 8.6 - 10.2 | [facility] | | | CORRECTED) | | mg/dL | LABORATORY | | | | | | SERVICES, | | | | | | CORE | | + + + + + + | BILIRUBIN | 9.9 (H) | 0.3 - 1.2 mg/dL | [facility] | | | TOTAL | | | LABORATORY | | | | | | SERVICES, | | | | | | CORE | | + + + + + + | TOTAL | 6.7 | 6.4 - 8.2 g/dL | [facility] [...] + + + | ALK PHOS | 204 (H) | 53 - 128 U/L | [facility] | | | | | | LABORATORY | | | | | | SERVICES, | | | | | | CORE | | + + + + + + | AST(SGOT) | 98 (H) | <=41 U/L | [facility] | | | | | | LABORATORY | | | | | | SERVICES, | | | | | | CORE | | + + + + + + | ALT (SGPT) | 64 (H) | <=60 U/L | [facility] | | | | | | LABORATORY | | | | | | SERVICES, | | | | | | CORE | | + + + + + + | ANION GAP | 9 | 4 - 11 mmol/L | [facility] | | | | | | LABORATORY | | | | | | SERVICES, | | | | | | CORE | | + + + + + + | ANION | 10 | 4 - 11 mmol/L | [facility] [...] MDRD equation recommended by the National | [facility] | | Kidney Disease Education Program. Estimated [...] + | [facility] | [address] | [place] [address] | | | SERVICES, ARTIS | [address] | | | + + + + + PHOSPHORUS, PLASMA (08/08/2019 5:18 AM PDT) + +-------+ + + + | Component | Value | Ref Range | Performed | Pathologist | | | | | At | Signature | + +-------+ + + + | PHOSPHORUS, | 2.9 | 2.4 - 4.7 mg/dL | [facility] [...] | + + + + + | [facility] | [address] | [place] [address] | | | SERVICES, CORE | [address] | | | + + + + + MAGNESIUM, PLASMA (08/08/2019 5:18 AM PDT) + +-------+ + + + | Component | Value | Ref Range | Performed | Pathologist | | | | | At | Signature | + +-------+ + + + | MAGNESIUM,P | 2.4 | 1.6 - 2.6 mg/dL | [facility] [...] + | [facility] | [address] | [place] [address] | | | SERVICES, CORE | [address] | | | + + + + + CAPILLARY BLOOD GLUCOSE (NO CHG), POC (08/08/2019 2:58 AM PDT) + +---------+ + + + | Component | Value | Ref Range | Performed | Pathologist | | | | | At | Signature | + +---------+ + + + | BLOOD | 258 (H) | 70 - 99 mg/dL | [facility] | | | GLUCOSE, | | | [facility] | | | POC | | | [facility] | | | | | | OF CARE | | | | | | TESTS | | + +---------+ + + + + + | Specimen | + + | Blood | + + + + + + + | Performing | Address | City/State/Zipcode | Phone Number | | Organization | | | | + + + + + | [facility] | [address] | [place], [place] | | | [facility] | [facility] | [address] | | | TESTS | | | | + + + + + CAPILLARY BLOOD GLUCOSE (NO CHG), POC (08/07/2019 9:40 PM PDT) + +---------+ + + + | Component | Value | Ref Range | Performed | Pathologist | | | | | At | Signature | + +---------+ + + + | BLOOD | 172 (H) | 70 - 99 mg/dL | [facility] | | | GLUCOSE, | | | [facility] | | | POC | | | [facility] | | | | | | OF CARE | | | | | | TESTS | | + +---------+ + + + + + | Specimen | + + | Blood | + + + + + + + | Performing | Address | City/State/Zipcode | Phone Number | | Organization | | | | + + + + + | [facility] | [address] | [place], [place] | | | [facility] | [address] | [address] | | | TESTS | | | | + + + + + CAPILLARY BLOOD GLUCOSE (NO CHG), POC (08/07/2019 7:19 PM PDT) + +-------+ + + + | Component | Value | Ref Range | Performed | Pathologist | | | | | At | Signature | + +-------+ + + + | BLOOD | 70 | 70 - 99 mg/dL | [facility] | | | GLUCOSE, | | | [facility] | | | POC | | | [facility] | | | | | | OF CARE | | | | | | TESTS | | + +-------+ + + + + + | Specimen | + + | Blood | + + + + + + + | Performing | Address | City/State/Zipcode | Phone Number | | Organization | | | | + + + + + | [facility] | [address] | [place], [place] | | | [facility] | [address] | [address] | | | TESTS | | | | + + + + + CAPILLARY BLOOD GLUCOSE (NO CHG), POC (08/07/2019 1:05 PM PDT) + +---------+ + + + | Component | Value | Ref Range | Performed | Pathologist | | | | | At | Signature | + +---------+ + + + | BLOOD | 122 (H) | 70 - 99 mg/dL | [facility] | | | GLUCOSE, | | | [facility] | | | POC | | | [facility] | | | | | | OF CARE | | | | | | TESTS | | + +---------+ + + + + + | Specimen | + + | Blood | + + + + + + + | Performing | Address | City/State/Zipcode | Phone Number | | Organization | | | | + + + + + | [facility] | [address] | [place], [place] | | | [facility] | [facility] | [address] | | | TESTS | | | | + + + + + CAPILLARY BLOOD GLUCOSE (NO CHG), POC (08/07/2019 7:53 AM PDT) + +---------+ + + + | Component | Value | Ref Range | Performed | Pathologist | | | | | At | Signature | + +---------+ + + + | BLOOD | 235 (H) | 70 - 99 mg/dL | [facility] | | | GLUCOSE, | | | [facility] | | | POC | | | [facility] | | | | | | OF CARE | | | | | | TESTS | | + +---------+ + + + + + | Specimen | + + | Blood | + + + + + + + | Performing | Address | City/State/Zipcode | Phone Number | | Organization | | | | + + + + + | [facility] | [address] | [place], [place] | | | [facility] | [address] | [address] | | | TESTS | | | | + + + + + COAGULOPATHY PANEL (INR,APTT,FIBRINOGEN) (08/07/2019 5:02 AM PDT) + + + + + + | Component | Value | Ref Range | Performed | Pathologist | | | | | At | Signature | + + + + + + | INR | 3.50 (H) | 0.90 - 1.20 INR | [facility] | | | | | | LABORATORY | | | | | | SERVICES, | | | | | | CORE | | + + + + + + | APTT | 74.1 (H) | 26.0 - 36.0 | [facility] | | | | | seconds | LABORATORY | | | | | | SERVICES, | | | | | | CORE | | + + + + + + | FIBRINOGEN | 141 (L) | 150 - 450 mg/dL | [facility] | | | LEVEL | | | LABORATORY | | | [...] Therapeutic ranges for full anticoagulation: INR for | [facility] | | Venous Thromboembolism (2.0 - 3.0) INR INR for | LABORATORY | | most patients with mech. valves (2.5 - 3.5) INR APTT values for | SERVICES, CORE | | monitoring heparin therapy may be affected by specimens processed >1 | | | hour after collection. APTT Therapeutic Range: | | | (75 - 120) sec Heparin levels of 0.35 - 0.7 U/mL | | | | | + + + + + + + + | Performing | Address | City/State/Zipcode | Phone Number | | Organization | | | | + + + + + | [facility] | [address] | [place] [address] | | | SERVICES, CORE | [address] | | | + + + + + COMPLETE METABOLIC SET (NA,K,CL,CO2,BUN,CREAT,GLUC,CA,AST,ALT,BILI TOTAL,ALK PHOS,ALB,PROT TOTAL) (08/07/2019 5:02 AM PDT) + + + + + + | Component | Value | Ref Range | Performed | Pathologist | | | | | At | Signature | + + + + + + | GLUCOSE, | 239 (H) | 70 - 99 mg/dL | [facility] | | | PLASMA | | | LABORATORY | | | (LAB) | | | SERVICES, | | | | | | CORE | | + + + + + + | BUN, PLASMA | 63 (H) | 6 - 20 mg/dL | [facility] | | | (LAB) | | | LABORATORY | | | | | | SERVICES, | | | | | | CORE | | + + + + + + | CREATININE | 1.42 (H) | 0.70 - 1.30 | [facility] | | | PLASMA | | mg/dL | LABORATORY | | | (LAB) | | | SERVICES, | | | | | | CORE | | + + + + + + | EGFR | >60 | >60 mL/min | [facility] | | | - | | | LABORATORY | | | TURKISH | | | SERVICES, | | | | | | CORE | | + + + + + + | EGFR NON | 52 (L) | >60 mL/min | [facility] | | | -JARRED | | | LABORATORY | | | RICAN | | | SERVICES, | | | | | | CORE | | + + + + + + | SODIUM, | 130 (L) | 136 - 145 | [facility] | | | PLASMA | | mmol/L | LABORATORY | | | (LAB) | | | SERVICES, | | | | | | CORE | | + + + + + + | POTASSIUM, | 4.8 | 3.4 - 5.0 | [facility] | [...] + + + | TOTAL CO2, | 20 (L) | 21 - 32 mmol/L | [facility] | | | PLASMA | | | LABORATORY | | | (LAB) | | | SERVICES, | | | | | | CORE | | + + + + + + | CALCIUM, | 8.8 | 8.6 - 10.2 | [...] + + + + | BILIRUBIN | 9.9 (H) | 0.3 - 1.2 mg/dL | [facility] | | | TOTAL | | | LABORATORY | | | | | | SERVICES, | | | | | | CORE | | + + + + + + | TOTAL | 6.4 | 6.4 - 8.2 g/dL | [facility] | | | PROTEIN, | | | LABORATORY | | | PLASMA | | | SERVICES, | | | (LAB) | | | CORE | | + + + + + + | ALBUMIN, | 3.0 (L) | 3.5 - 4.7 g/dL | [facility] | | | PLASMA | | | LABORATORY | | | (LAB) | | | SERVICES, | | | | | | CORE | | + + + + + + | ALK PHOS | 185 (H) | 53 - 128 U/L | [facility] | | | | | | LABORATORY | | | | | | SERVICES, | | | | | | CORE | | + + + + + + | AST(SGOT) | 97 (H) | <=41 U/L | [facility] | | | | | | LABORATORY | | | | | | SERVICES, | | | | | | CORE | | + + + + + + | ALT (SGPT) | 62 (H) | <=60 U/L | [facility] | | | | | | LABORATORY | | | | | | SERVICES, | | | | | | CORE | | + + + + + + | ANION GAP | 8 | 4 - 11 mmol/L | [facility] | | | | | | LABORATORY | | | | | | SERVICES, | | | | | | CORE | | + + + + + + | ANION | 10 | 4 - 11 mmol/L | [facility] [...] MDRD equation recommended by the National | [facility] | | Kidney Disease Education Program. Estimated [...] | + + + + + | [facility] | [address] | [place] [address] | | | SERVICES, CORE | [address] | | | + + + + + PHOSPHORUS, PLASMA (08/07/2019 5:02 AM PDT) + +-------+ + + + | Component | Value | Ref Range | Performed | Pathologist | | | | | At | Signature | + +-------+ + + + | PHOSPHORUS, | 2.9 | 2.4 - 4.7 mg/dL | [facility] [...] + | [facility] | [address] | [place] [address] | | | CLAUDIA, ARTIS | [address] | | | + + + + + MAGNESIUM, PLASMA (08/07/2019 5:02 AM PDT) + +-------+ + + + | Component | Value | Ref Range | Performed | Pathologist | | | | | At | Signature | + +-------+ + + + | MAGNESIUM,P | 2.3 | 1.6 - 2.6 mg/dL | [facility] [...] | + + + + + | [facility] | [address] | [place] [address] | | | SERVICES, CORE | [address] | | | + + + + + CAPILLARY BLOOD GLUCOSE (NO CHG), POC (08/07/2019 3:12 AM PDT) + +---------+ + + + | Component | Value | Ref Range | Performed | Pathologist | | | | | At | Signature | + +---------+ + + + | BLOOD | 264 (H) | 70 - 99 mg/dL | [facility] - | | | GLUCOSE, | | | [facility] | | | POC | | | [facility] | | | | | | OF CARE | | | | | | TESTS | | + +---------+ + + + + + | Specimen | + + | Blood | + + + + + + + | Performing | Address | City/State/Zipcode | Phone Number | | Organization | | | | + + + + + | [facility] | [address] | [place], [place] | | | [facility] | [address] | [address] | | | TESTS | | | | + + + + + CAPILLARY BLOOD GLUCOSE (NO CHG), POC (08/06/2019 9:43 PM PDT) + +---------+ + + + | Component | Value | Ref Range | Performed | Pathologist | | | | | At | Signature | + +---------+ + + + | BLOOD | 124 (H) | 70 - 99 mg/dL | [facility] - | | | GLUCOSE, | | | [facility] | | | POC | | | [facility] | | | | | | OF CARE | | | | | | TESTS | | + +---------+ + + + + + | Specimen | + + | Blood | + + + + + + + | Performing | Address | City/State/Zipcode | Phone Number | | Organization | | | | + + + + + | [facility] | [address] | [place], [place] | | | [facility] | [address] | [address] | | | TESTS | | | | + + + + + CAPILLARY BLOOD GLUCOSE (NO CHG), POC (08/06/2019 6:24 PM PDT) + +-------+ + + + | Component | Value | Ref Range | Performed | Pathologist | | | | | At | Signature | + +-------+ + + + | BLOOD | 98 | 70 - 99 mg/dL | [facility] - | | | GLUCOSE, | | | [facility] | | | POC | | | [facility] | | | | | | OF CARE | | | | | | TESTS | | + +-------+ + + + + + | Specimen | + + | Blood | + + + + + + + | Performing | Address | City/State/Zipcode | Phone Number | | Organization | | | | + + + + + | [facility] | [address] | [place], [place] | | | [facility] | [address] | [address] | | | TESTS | | | | + + + + + CAPILLARY BLOOD GLUCOSE (NO CHG), POC (08/06/2019 1:04 PM PDT) + +---------+ + + + | Component | Value | Ref Range | Performed | Pathologist | | | | | At | Signature | + +---------+ + + + | BLOOD | 199 (H) | 70 - 99 mg/dL | [facility] - | | | GLUCOSE, | | | [facility] | | | POC | | | [facility] | | | | | | OF CARE | | | | | | TESTS | | + +---------+ + + + + + | Specimen | + + | Blood | + + + + + + + | Performing | Address | City/State/Zipcode | Phone Number | | Organization | | | | + + + + + | [facility] | [address] | [place], [place] | | | [facility] | [address] | [address] | | | TESTS | | | | + + + + + CBC (HEMOGRAM) ONLY (08/06/2019 4:53 AM PDT) + + + + + + | Component | Value | Ref Range | Performed | Pathologist | | | | | At | Signature | + + + + + + | WHITE CELL | 4.12 | 3.50 - 10.80 | [facility] | | | COUNT | | K/cu mm | LABORATORY | | | | | | SERVICES, | | | | | | CORE | | + + + + + + | RED CELL | 1.99 (L) | 4.50 - 6.00 | [facility] | | | COUNT | | M/cu mm | LABORATORY | | | | | | SERVICES, | | | | | | CORE | | + + + + + + | HEMOGLOBIN | 6.9 (L) | 13.5 - 17.5 | [facility] | | | | | g/dL | LABORATORY | | | | | | SERVICES, | | | | | | CORE | | + + + + + + | HEMATOCRIT | 20.3 (L) | 41.0 - 53.0 % | [facility] | | | | | | LABORATORY | | | | | | SERVICES, | | | | | | CORE | | + + + + + + | MCV | 102.0 (H) | 80.0 - 100.0 fL | [facility] | | | | | | LABORATORY | | | | | | SERVICES, | | | | | | CORE | | + + + + + + | MCHC | 34.0 | 32.0 - 36.0 | [facility] | | | | | g/dL | LABORATORY | | | | | | SERVICES, | | | | | | CORE | | + + + + + + | RDW SD | 71.5 (H) | 35.1 - 46.3 fL | [facility] | | | | | | LABORATORY | | | | | | SERVICES, | | | | | | CORE | | + + + + + + | PLATELET | 39 (L) | 150 - 400 K/cu | [facility] | | | COUNT | | mm | LABORATORY | | | | | | SERVICES, | | | | | | CORE | | + + + + + + | MPV | 10.6 | 9.7 - 12.3 fL | [facility] | | | | | | LABORATORY | | | | | | SERVICES, | | | | | | CORE | | + + + + + + | NRBC% | 0.7 (H) | 0.0 - 0.3 % | [facility] | | | | | | LABORATORY | | | | | | SERVICES, | | | | | | CORE | | + + + + + + | NRBC# | 0.03 (H) | 0.00 - 0.02 | [facility] | [...] | + + + + + | [facility] | [address] | [place] [address] | | | SERVICES, CORE | [address] | | | + + + + + COAGULOPATHY PANEL (INR,APTT,FIBRINOGEN) (08/06/2019 4:53 AM PDT) + + + + + + | Component | Value | Ref Range | Performed | Pathologist | | | | | At | Signature | + + + + + + | INR | 3.30 (H) | 0.90 - 1.20 INR | [facility] | | | | | | LABORATORY | | | | | | SERVICES, | | | | | | CORE | | + + + + + + | APTT | 72.7 (H) | 26.0 - 36.0 | [facility] | | | | | seconds | LABORATORY | | | | | | SERVICES, | | | | | | CORE | | + + + + + + | FIBRINOGEN | 143 (L) | 150 - 450 mg/dL | [facility] | | | LEVEL | | | LABORATORY | | | [...] Therapeutic ranges for full anticoagulation: INR for | [facility] | | Venous Thromboembolism (2.0 - 3.0) INR INR for | LABORATORY | | most patients with mech. valves (2.5 - 3.5) INR APTT values for | SERVICES, CORE | | monitoring heparin therapy may be affected by specimens processed >1 | | | hour after collection. APTT Therapeutic Range: | | | (75 - 120) sec Heparin levels of 0.35 - 0.7 U/mL | | | | | + + + + + + + + | Performing | Address | City/State/Zipcode | Phone Number | | Organization | | | | + + + + + | [facility] | [address] | [place] [address] | | | SERVICES, CORE | [address] | | | + + + + + COMPLETE METABOLIC SET (NA,K,CL,CO2,BUN,CREAT,GLUC,CA,AST,ALT,BILI TOTAL,ALK PHOS,ALB,PROT TOTAL) (08/06/2019 4:53 AM PDT) + + + + + + | Component | Value | Ref Range | Performed | Pathologist | | | | | At | Signature | + + + + + + | GLUCOSE, | 258 (H) | 70 - 99 mg/dL | [facility] | | | PLASMA | | | LABORATORY | | | (LAB) | | | SERVICES, | | | | | | CORE | | + + + + + + | BUN, PLASMA | 55 (H) | 6 - 20 mg/dL | [facility] | | | (LAB) | | | LABORATORY | | | | | | SERVICES, | | | | | | CORE | | + + + + + + | CREATININE | 1.38 (H) | 0.70 - 1.30 | [facility] | | | PLASMA | | mg/dL | LABORATORY | | | (LAB) | | | SERVICES, | | | | | | CORE | | + + + + + + | EGFR | >60 | >60 mL/min | [facility] | | | - | | | LABORATORY | | | T[place] | | | SERVICES, | | | | | | CORE | | + + + + + + | EGFR NON | 54 (L) | >60 mL/min | [facility] | | | -JARRED | | | LABORATORY | | | RICAN | | | SERVICES, | | | | | | CORE | | + + + + + + | SODIUM, | 131 (L) | 136 - 145 | [facility] | | | PLASMA | | mmol/L | LABORATORY | | | (LAB) | | | SERVICES, | | | | | | CORE | | + + + + + + | POTASSIUM, | 4.6 | 3.4 - 5.0 | [facility] | [...] + + + | TOTAL CO2, | 19 (L) | 21 - 32 mmol/L | [facility] | | | PLASMA | | | LABORATORY | | | (LAB) | | | SERVICES, | | | | | | CORE | | + + + + + + | CALCIUM, | 9.0 | 8.6 - 10.2 | [facility] | | | PLASMA | | mg/dL | LABORATORY | | | (LAB) | | | SERVICES, | | | | | | CORE | | + + + + + + | CALCIUM(ALB | 9.8 | 8.6 - 10.2 | [facility] | | | CORRECTED) | | mg/dL | LABORATORY | | | | | | SERVICES, | | | | | | CORE | | + + + + + + | BILIRUBIN | 10.3 (H) | 0.3 - 1.2 mg/dL | [facility] | | | TOTAL | | | LABORATORY | | | | | | SERVICES, | | | | | | CORE | | + + + + + + | TOTAL | 6.4 | 6.4 - 8.2 g/dL | [facility] | | | PROTEIN, | | | LABORATORY | | | PLASMA | | | SERVICES, | | | (LAB) | | | CORE | | + + + + + + | ALBUMIN, | 3.0 (L) | 3.5 - 4.7 g/dL | [facility] | | | PLASMA | | | LABORATORY | | | (LAB) | | | SERVICES, | | | | | | CORE | | + + + + + + | ALK PHOS | 192 (H) | 53 - 128 U/L | [facility] | | | | | | LABORATORY | | | | | | SERVICES, | | | | | | CORE | | + + + + + + | AST(SGOT) | 125 (H) | <=41 U/L | [facility] | | | | | | LABORATORY | | | | | | SERVICES, | | | | | | CORE | | + + + + + + | ALT (SGPT) | 75 (H) | <=60 U/L | [facility] | | | | | | LABORATORY | | | | | | SERVICES, | | | | | | CORE | | + + + + + + | ANION GAP | 9 | 4 - 11 mmol/L | [facility] | | | | | | LABORATORY | | | | | | SERVICES, | | | | | | CORE | | + + + + + + | ANION | 11 | 4 - 11 mmol/L | [facility] [...] MDRD equation recommended by the National | [facility] | | Kidney Disease Education Program. Estimated [...] + | [facility] | [address] | [place] [address] | | | SERVICES, CORE | [address] | | | + + + + + PHOSPHORUS, PLASMA (08/06/2019 4:53 AM PDT) + +-------+ + + + | Component | Value | Ref Range | Performed | Pathologist | | | | | At | Signature | + +-------+ + + + | PHOSPHORUS, | 2.5 | 2.4 - 4.7 mg/dL | [facility] [...] + | [facility] | [address] | [place] [address] | | | SERVICES, CORE | [address] | | | + + + + + MAGNESIUM, PLASMA (08/06/2019 4:53 AM PDT) + +-------+ + + + | Component | Value | Ref Range | Performed | Pathologist | | | | | At | Signature | + +-------+ + + + | MAGNESIUM,P | 2.3 | 1.6 - 2.6 mg/dL | [facility] [...] | + + + + + | [facility] | [address] | [place] [address] | | | SERVICES, ARTIS | [address] | | | + + + + + CAPILLARY BLOOD GLUCOSE (NO CHG), POC (08/06/2019 3:10 AM PDT) + +---------+ + + + | Component | Value | Ref Range | Performed | Pathologist | | | | | At | Signature | + +---------+ + + + | BLOOD | 292 (H) | 70 - 99 mg/dL | [facility] - | | | GLUCOSE, | | | [facility] | | | POC | | | [facility] | | | | | | OF CARE | | | | | | TESTS | | + +---------+ + + + + + | Specimen | + + | Blood | + + + + + + + | Performing | Address | City/State/Zipcode | Phone Number | | Organization | | | | + + + + + | [facility] | [address] | [place], [place] | | | [facility] | [facility] | [address] | | | TESTS | | | | + + + + + CAPILLARY BLOOD GLUCOSE (NO CHG), POC (08/05/2019 11:25 PM PDT) + +---------+ + + + | Component | Value | Ref Range | Performed | Pathologist | | | | | At | Signature | + +---------+ + + + | BLOOD | 184 (H) | 70 - 99 mg/dL | [facility] - | | | GLUCOSE, | | | [facility] | | | POC | | | [facility] | | | | | | OF CARE | | | | | | TESTS | | + +---------+ + + + + + | Specimen | + + | Blood | + + + + + + + | Performing | Address | City/State/Zipcode | Phone Number | | Organization | | | | + + + + + | [facility] | [address] | [place], [place] | | | [facility] | [address] | [address] | | | TESTS | | | | + + + + + CAPILLARY BLOOD GLUCOSE (NO CHG), POC (08/05/2019 8:16 PM PDT) + +---------+ + + + | Component | Value | Ref Range | Performed | Pathologist | | | | | At | Signature | + +---------+ + + + | BLOOD | 225 (H) | 70 - 99 mg/dL | [facility] | | | GLUCOSE, | | | [facility] | | | POC | | | [facility] | | | | | | OF CARE | | | | | | TESTS | | + +---------+ + + + + + | Specimen | + + | Blood | + + + + + + + | Performing | Address | City/State/Zipcode | Phone Number | | Organization | | | | + + + + + | [facility] | [address] | [place], [place] | | | [facility] [place] | [facility] | [address] | | | TESTS | | | | + + + + + CAPILLARY BLOOD GLUCOSE (NO CHG), POC (08/05/2019 11:30 AM PDT) + +---------+ + + + | Component | Value | Ref Range | Performed | Pathologist | | | | | At | Signature | + +---------+ + + + | BLOOD | 406 (H) | 70 - 99 mg/dL | [facility] - | | | GLUCOSE, | | | [facility] | | | POC | | | [facility] | | | | | | OF CARE | | | | | | TESTS | | + +---------+ + + + + + | Specimen | + + | Blood | + + + + + + + | Performing | Address | City/State/Zipcode | Phone Number | | Organization | | | | + + + + + | [facility] | [address] | [place], [place] | | | [facility] [place] | [facility] | [address] | | | TESTS | | | | + + + + + CAPILLARY BLOOD GLUCOSE (NO CHG), POC (08/05/2019 8:36 AM PDT) + +---------+ + + + | Component | Value | Ref Range | Performed | Pathologist | | | | | At | Signature | + +---------+ + + + | BLOOD | 382 (H) | 70 - 99 mg/dL | [facility] - | | | GLUCOSE, | | | [facility] | | | POC | | | [facility] | | | | | | OF CARE | | | | | | TESTS | | + +---------+ + + + + + | Specimen | + + | Blood | + + + + + + + | Performing | Address | City/State/Zipcode | Phone Number | | Organization | | | | + + + + + | [facility] | [address] | [place], [place] | | | [facility] | [address] | [address] | | | TESTS | | | | + + + + + CAPILLARY BLOOD GLUCOSE (NO CHG), POC (08/05/2019 6:31 AM PDT) + +---------+ + + + | Component | Value | Ref Range | Performed | Pathologist | | | | | At | Signature | + +---------+ + + + | BLOOD | 343 (H) | 70 - 99 mg/dL | [facility] - | | | GLUCOSE, | | | [facility] | | | POC | | | [facility] | | | | | | OF CARE | | | | | | TESTS | | + +---------+ + + + + + | Specimen | + + | Blood | + + + + + + + | Performing | Address | City/State[facility] | Phone Number | | Organization | | | | + + + + + | [facility] | [address] | [place], [place] | | | [facility] | [address] | [address] | | | TESTS | | | | + + + + + COAGULOPATHY PANEL (INR,APTT,FIBRINOGEN) (08/05/2019 5:16 AM PDT) + + + + + + | Component | Value | Ref Range | Performed | Pathologist | | | | | At | Signature | + + + + + + | INR | 3.15 (H) | 0.90 - 1.20 INR | [facility] | | | | | | LABORATORY | | | | | | SERVICES, | | | | | | CORE | | + + + + + + | APTT | 68.2 (H) | 26.0 - 36.0 | [facility] | | | | | seconds | LABORATORY | | | | | | SERVICES, | | | | | | CORE | | + + + + + + | FIBRINOGEN | 147 (L) | 150 - 450 mg/dL | [facility] | | | LEVEL | | | LABORATORY | | | [...] Therapeutic ranges for full anticoagulation: INR for | [facility] | | Venous Thromboembolism (2.0 - 3.0) INR INR for | LABORATORY | | most patients with mech. valves (2.5 - 3.5) INR APTT values for | SERVICES, CORE | | monitoring heparin therapy may be affected by specimens processed >1 | | | hour after collection. APTT Therapeutic Range: | | | (75 - 120) sec Heparin levels of 0.35 - 0.7 U/mL | | | | | + + + + + + + + | Performing | Address | City/State/Zipcode | Phone Number | | Organization | | | | + + + + + | [facility] | [address] | [place] [address] | | | SERVICES, CORE | [address] | | | + + + + + COMPLETE METABOLIC SET (NA,K,CL,CO2,BUN,CREAT,GLUC,CA,AST,ALT,BILI TOTAL,ALK PHOS,ALB,PROT TOTAL) (08/05/2019 5:16 AM PDT) + + + + + + | Component | Value | Ref Range | Performed | Pathologist | | | | | At | Signature | + + + + + + | GLUCOSE, | 282 (H) | 70 - 99 mg/dL | [facility] | | | PLASMA | | | LABORATORY | | | (LAB) | | | SERVICES, | | | | | | CORE | | + + + + + + | BUN, PLASMA | 51 (H) | 6 - 20 mg/dL | [facility] | | | (LAB) | | | LABORATORY | | | | | | SERVICES, | | | | | | CORE | | + + + + + + | CREATININE | 1.16 | 0.70 - 1.30 | [facility] | | | PLASMA | | mg/dL | LABORATORY | | | (LAB) | | | SERVICES, | | | | | | CORE | | + + + + + + | EGFR | >60 | >60 mL/min | [facility] | | | - | | | LABORATORY | | | [place] | | | SERVICES, | | | | | | CORE | | + + + + + + | EGFR NON | >60 | >60 mL/min | [facility] | | | -JARRED | | | LABORATORY | | | RICAN | | | SERVICES, | | | | | | CORE | | + + + + + + | SODIUM, | 131 (L) | 136 - 145 | [facility] | | | PLASMA | | mmol/L | LABORATORY | | | (LAB) | | | SERVICES, | | | | | | CORE | | + + + + + + | POTASSIUM, | 4.4 | 3.4 - 5.0 | [facility] | [...] + + + | TOTAL CO2, | 20 (L) | 21 - 32 mmol/L | [facility] [...] + + + + | CALCIUM(ALB | 9.8 | 8.6 - 10.2 | [facility] | | | CORRECTED) | | mg/dL | LABORATORY | | | | | | SERVICES, | | | | | | CORE | | + + + + + + | BILIRUBIN | 11.7 (H) | 0.3 - 1.2 mg/dL | [facility] | | | TOTAL | | | LABORATORY | | | | | | SERVICES, | | | | | | CORE | | + + + + + + | TOTAL | 6.8 | 6.4 - 8.2 g/dL | [facility] | | | PROTEIN, | | | LABORATORY | | | PLASMA | | | SERVICES, | | | (LAB) | | | CORE | | + + + + + + | ALBUMIN, | 3.4 (L) | 3.5 - 4.7 g/dL | [facility] | | | PLASMA | | | LABORATORY | | | (LAB) | | | SERVICES, | | | | | | CORE | | + + + + + + | ALK PHOS | 211 (H) | 53 - 128 U/L | [facility] | | | | | | LABORATORY | | | | | | SERVICES, | | | | | | CORE | | + + + + + + | AST(SGOT) | 110 (H) | <=41 U/L | [facility] | | | | | | LABORATORY | | | | | | SERVICES, | | | | | | CORE | | + + + + + + | ALT (SGPT) | 62 (H) | <=60 U/L | [facility] | | | | | | LABORATORY | | | | | | SERVICES, | | | | | | CORE | | + + + + + + | ANION GAP | 8 | 4 - 11 mmol/L | [facility] | | | | | | LABORATORY | | | | | | SERVICES, | | | | | | CORE | | + + + + + + | ANION | 9 | 4 - 11 mmol/L | [facility] [...] MDRD equation recommended by the National | [facility] | | Kidney Disease Education Program. Estimated [...] | + + + + + | [facility] | [address] | [place] [address] | | | SERVICES, CORE | [address] | | | + + + + + PHOSPHORUS, PLASMA (08/05/2019 5:16 AM PDT) + +-------+ + + + | Component | Value | Ref Range | Performed | Pathologist | | | | | At | Signature | + +-------+ + + + | PHOSPHORUS, | 2.6 | 2.4 - 4.7 mg/dL | [facility] [...] + | [facility] | [address] | [place] [address] | | | SERVICES, CORE | [address] | | | + + + + + MAGNESIUM, PLASMA (08/05/2019 5:16 AM PDT) + +-------+ + + + | Component | Value | Ref Range | Performed | Pathologist | | | | | At | Signature | + +-------+ + + + | MAGNESIUM,P | 2.1 | 1.6 - 2.6 mg/dL | [facility] [...] | + + + + + | [facility] | [address] | [place] [address] | | | SERVICES, CORE | [address] | | | + + + + + CAPILLARY BLOOD GLUCOSE (NO CHG), POC (08/05/2019 2:32 AM PDT) + +---------+ + + + | Component | Value | Ref Range | Performed | Pathologist | | | | | At | Signature | + +---------+ + + + | BLOOD | 293 (H) | 70 - 99 mg/dL | [facility] - | | | GLUCOSE, | | | [facility] | | | POC | | | [facility] | | | | | | OF CARE | | | | | | TESTS | | + +---------+ + + + + + | Specimen | + + | Blood | + + + + + + + | Performing | Address | City/State/Zipcode | Phone Number | | Organization | | | | + + + + + | [facility] | [address] | [place], [place] | | | [facility] | [address] | [address] | | | TESTS | | | | + + + + + CAPILLARY BLOOD GLUCOSE (NO CHG), POC (08/04/2019 10:44 PM PDT) + +---------+ + + + | Component | Value | Ref Range | Performed | Pathologist | | | | | At | Signature | + +---------+ + + + | BLOOD | 177 (H) | 70 - 99 mg/dL | [facility] | | | GLUCOSE, | | | [facility] | | | POC | | | [facility] | | | | | | OF CARE | | | | | | TESTS | | + +---------+ + + + + + | Specimen | + + | Blood | + + + + + + + | Performing | Address | City/State/Zipcode | Phone Number | | Organization | | | | + + + + + | [facility] | [address] | [place], [place] | | | [facility] | [address] | [address] | | | TESTS | | | | + + + + + CAPILLARY BLOOD GLUCOSE (NO CHG), POC (08/04/2019 7:15 PM PDT) + +---------+ + + + | Component | Value | Ref Range | Performed | Pathologist | | | | | At | Signature | + +---------+ + + + | BLOOD | 174 (H) | 70 - 99 mg/dL | [facility] | | | GLUCOSE, | | | [facility] | | | POC | | | [facility] | | | | | | OF CARE | | | | | | TESTS | | + +---------+ + + + + + | Specimen | + + | Blood | + + + + + + + | Performing | Address | City/State/Zipcode | Phone Number | | Organization | | | | + + + + + | [facility] | [address] | [place], [place] | | | [facility] | [address] | [address] | | | TESTS | | | | + + + + + UREA NITROGEN, URINE (08/04/2019 1:40 PM PDT) + +--------+ + + + | Component | Value | Ref Range | Performed | Pathologist | | | | | At | Signature | + +--------+ + + + | UREA NITRO | 656 | mg/dL | [facility] | | | CONC UR | | | LABORATORY | | | | | | SERVICES, | | | | | | CORE | | + +--------+ + + + | URINE | Random | | [facility] | | | INTERVAL | | | LABORATORY | | | | | | SERVICES, | | | | | | CORE | | + +--------+ + + + | URINE | Spot | | [facility] | | | VOLUME | | | LABORATORY | | | | | | SERVICES, | | | | | | CORE | | + +--------+ + + + + + | Specimen | + + | Urine - Urine | | (substance) | + + + + + | Narrative | Performed At | + + + | Reference range based on 24 hour collection time. Patient results | [facility] | | are calculated from actual collection time. | LABORATORY | | | SERVICES, CORE | + + + + + + + + | Performing | Address | City/State/Zipcode | Phone Number | | Organization | | | | + + + + + | [facility] | [address] | [place] [address] | | | SERVICES, CORE | [address] | | | + + + + + CREATININE, URINE (08/04/2019 1:40 PM PDT) + +--------+ + + + | Component | Value | Ref Range | Performed | Pathologist | | | | | At | Signature | + +--------+ + + + | CREATININE | 39.90 | mg/dL | [facility] | | | CONC UR | | | LABORATORY | | | | | | SERVICES, | | | | | | CORE | | + +--------+ + + + | URINE | Random | | [facility] | | | INTERVAL | | | LABORATORY | | | | | | SERVICES, | | | | | | CORE | | + +--------+ + + + | URINE | Spot | | [facility] | | | VOLUME | | | LABORATORY | | | | | | SERVICES, | | | | | | CORE | | + +--------+ + + + + + | Specimen | + + | Urine - Urine | | (substance) | + + + + + | Narrative | Performed At | + + + | Reference range based on 24 hour collection time. Patient results | [facility] | | are calculated from actual collection time. | LABORATORY | | | [facility] | + + + + + + + + | Performing | Address | City/State/Zipcode | Phone Number | | Organization | | | | + + + + + | [facility] | [address] | [place] [address] | | | [place] | [address] | | | + + + + + SODIUM TOTAL, URINE (08/04/2019 1:40 PM PDT) + +--------+ + + + | Component | Value | Ref Range | Performed | Pathologist | | | | | At | Signature | + +--------+ + + + | SODIUM CONC | 8 | mmol/L | [facility] | | | URINE | | | LABORATORY | | | | | | SERVICES, | | | | | | CORE | | + +--------+ + + + | URINE | Random | | [facility] | | | INTERVAL | | | LABORATORY | | | | | | SERVICES, | | | | | | CORE | | + +--------+ + + + | URINE | Spot | | [facility] | | | VOLUME | | | LABORATORY | | | | | | SERVICES, | | | | | | CORE | | + +--------+ + + + + + | Specimen | + + | Urine - Urine | | (substance) | + + + + + | Narrative | Performed At | + + + | Reference range based on 24 hour collection time. Patient results | [facility] | | are calculated from actual collection time. | LABORATORY | | | SERVICES, CORE | + + + + + + + + | Performing | Address | City/State/Zipcode | Phone Number | | Organization | | | | + + + + + | [facility] | [address] | [place] [address] | | | SERVICES, [facility] | [address] | | | + + + + + CAPILLARY BLOOD GLUCOSE (NO CHG), POC (08/04/2019 12:31 PM PDT) + +---------+ + + + | Component | Value | Ref Range | Performed | Pathologist | | | | | At | Signature | + +---------+ + + + | BLOOD | 326 (H) | 70 - 99 mg/dL | [facility] - | | | GLUCOSE, | | | [facility] | | | POC | | | [facility] | | | | | | OF CARE | | | | | | TESTS | | + +---------+ + + + + + | Specimen | + + | Blood | + + + + + + + | Performing | Address | City/State/Zipcode | Phone Number | | Organization | | | | + + + + + | [facility] | [address] | [place], [place] | | | [facility] | [facility] | [address] | | | TESTS | | | | + + + + + CAPILLARY BLOOD GLUCOSE (NO CHG), POC (08/04/2019 7:34 AM PDT) + +---------+ + + + | Component | Value | Ref Range | Performed | Pathologist | | | | | At | Signature | + +---------+ + + + | BLOOD | 409 (H) | 70 - 99 mg/dL | [facility] - | | | GLUCOSE, | | | [facility] | | | POC | | | [facility] | | | | | | OF CARE | | | | | | TESTS | | + +---------+ + + + + + | Specimen | + + | Blood | + + + + + + + | Performing | Address | City/State/Zipcode | Phone Number | | Organization | | | | + + + + + | [facility] | [address] | [place], [place] | | | [facility] | [address] | [address] | | | TESTS | | | | + + + + + CAPILLARY BLOOD GLUCOSE (NO CHG), POC (08/04/2019 7:00 AM PDT) + +---------+ + + + | Component | Value | Ref Range | Performed | Pathologist | | | | | At | Signature | + +---------+ + + + | BLOOD | 390 (H) | 70 - 99 mg/dL | [facility] - | | | GLUCOSE, | | | [facility] | | | POC | | | [facility] | | | | | | OF CARE | | | | | | TESTS | | + +---------+ + + + + + | Specimen | + + | Blood | + + + + + + + | Performing | Address | City/State/Zipcode | Phone Number | | Organization | | | | + + + + + | [facility] | [address] | [place], [place] | | | [facility] | [address] | [address] | | | TESTS | | | | + + + + + CBC (HEMOGRAM) ONLY (08/04/2019 6:11 AM PDT) + + + + + + | Component | Value | Ref Range | Performed | Pathologist | | | | | At | Signature | + + + + + + | WHITE CELL | 4.53 | 3.50 - 10.80 | [facility] | | | COUNT | | K/cu mm | LABORATORY | | | | | | SERVICES, | | | | | | CORE | | + + + + + + | RED CELL | 2.17 (L) | 4.50 - 6.00 | [facility] | | | COUNT | | M/cu mm | LABORATORY | | | | | | SERVICES, | | | | | | CORE | | + + + + + + | HEMOGLOBIN | 7.3 (L) | 13.5 - 17.5 | [facility] | | | | | g/dL | LABORATORY | | | | | | SERVICES, | | | | | | CORE | | + + + + + + | HEMATOCRIT | 21.8 (L) | 41.0 - 53.0 % | [facility] | | | | | | LABORATORY | | | | | | SERVICES, | | | | | | CORE | | + + + + + + | MCV | 100.5 (H) | 80.0 - 100.0 fL | [facility] | | | | | | LABORATORY | | | | | | SERVICES, | | | | | | CORE | | + + + + + + | MCHC | 33.5 | 32.0 - 36.0 | [facility] | | | | | g/dL | LABORATORY | | | | | | SERVICES, | | | | | | CORE | | + + + + + + | RDW SD | 66.8 (H) | 35.1 - 46.3 fL | [facility] | | | | | | LABORATORY | | | | | | SERVICES, | | | | | | CORE | | + + + + + + | PLATELET | 36 (L) | 150 - 400 K/cu | [...] + + + + | NRBC% | 0.7 (H) | 0.0 - 0.3 % | [facility] | | | | | | LABORATORY | | | | | | SERVICES, | | | | | | CORE | | + + + + + + | NRBC# | 0.03 (H) | 0.00 - 0.02 | [facility] | [...] + | [facility] | [address] | [place] [address] | | | SERVICES, CORE | [address] | | | + + + + + COMPLETE METABOLIC SET (NA,K,CL,CO2,BUN,CREAT,GLUC,CA,AST,ALT,BILI TOTAL,ALK PHOS,ALB,PROT TOTAL) (08/04/2019 6:11 AM PDT) + + + + + + | Component | Value | Ref Range | Performed | Pathologist | | | | | At | Signature | + + + + + + | GLUCOSE, | 376 (H) | 70 - 99 mg/dL | [facility] | | | PLASMA | | | LABORATORY | | | (LAB) | | | SERVICES, | | | | | | CORE | | + + + + + + | BUN, PLASMA | 54 (H) | 6 - 20 mg/dL | [facility] | | | (LAB) | | | LABORATORY | | | | | | SERVICES, | | | | | | CORE | | + + + + + + | CREATININE | 1.31 (H) | 0.70 - 1.30 | [facility] | | | PLASMA | | mg/dL | LABORATORY | | | (LAB) | | | SERVICES, | | | | | | CORE | | + + + + + + | EGFR | >60 | >60 mL/min | [facility] | | | - | | | LABORATORY | | | [facility] | | | SERVICES, | | | | | | CORE | | + + + + + + | EGFR NON | 57 (L) | >60 mL/min | [facility] | | | -JARRED | | | LABORATORY | | | RICAN | | | SERVICES, | | | | | | CORE | | + + + + + + | SODIUM, | 129 (L) | 136 - 145 | [facility] | | | PLASMA | | mmol/L | LABORATORY | | | (LAB) | | | SERVICES, | | | | | | CORE | | + + + + + + | POTASSIUM, | 4.7 | 3.4 - 5.0 | [facility] | [...] + + + | TOTAL CO2, | 20 (L) | 21 - 32 mmol/L | [facility] | | | PLASMA | | | LABORATORY | | | (LAB) | | | SERVICES, | | | | | | CORE | | + + + + + + | CALCIUM, | 8.7 | 8.6 - 10.2 | [facility] | [...] + + + + | BILIRUBIN | 9.6 (H) | 0.3 - 1.2 mg/dL | [facility] | | | TOTAL | | | LABORATORY | | | | | | SERVICES, | | | | | | CORE | | + + + + + + | TOTAL | 6.4 | 6.4 - 8.2 g/dL | [facility] | | | PROTEIN, | | | LABORATORY | | | PLASMA | | | SERVICES, | | | (LAB) | | | CORE | | + + + + + + | ALBUMIN, | 2.9 (L) | 3.5 - 4.7 g/dL | [facility] | | | PLASMA | | | LABORATORY | | | (LAB) | | | SERVICES, | | | | | | CORE | | + + + + + + | ALK PHOS | 204 (H) | 53 - 128 U/L | [facility] | | | | | | LABORATORY | | | | | | SERVICES, | | | | | | CORE | | + + + + + + | AST(SGOT) | 79 (H) | <=41 U/L | [facility] | [...] + + + + | ANION | 8 | 4 - 11 mmol/L | [facility] [...] MDRD equation recommended by the National | [facility] | | Kidney Disease Education Program. Estimated [...] + | [facility] | [address] | [place] [address] | | | SERVICES, CORE | [address] | | | + + + + + COAGULOPATHY PANEL (INR,APTT,FIBRINOGEN) (08/04/2019 6:11 AM PDT) + + + + + + | Component | Value | Ref Range | Performed | Pathologist | | | | | At | Signature | + + + + + + | INR | 3.13 (H) | 0.90 - 1.20 INR | [facility] | | | | | | LABORATORY | | | | | | SERVICES, | | | | | | CORE | | + + + + + + | APTT | 69.1 (H) | 26.0 - 36.0 | [facility] | | | | | seconds | LABORATORY | | | | | | SERVICES, | | | | | | CORE | | + + + + + + | FIBRINOGEN | 141 (L) | 150 - 450 mg/dL | [facility] | | | LEVEL | | | LABORATORY | | | [...] Therapeutic ranges for full anticoagulation: INR for | [facility] | | Venous Thromboembolism (2.0 - 3.0) INR INR for | LABORATORY | | most patients with mech. valves (2.5 - 3.5) INR APTT values for | SERVICES, CORE | | monitoring heparin therapy may be affected by specimens processed >1 | | | hour after collection. APTT Therapeutic Range: | | | (75 - 120) sec Heparin levels of 0.35 - 0.7 U/mL | | | | | + + + + + + + + | Performing | Address | City/State/Zipcode | Phone Number | | Organization | | | | + + + + + | [facility] | [address] | [place] [address] | | | SERVICES, CORE | [address] | | | + + + + + PHOSPHORUS, PLASMA (08/04/2019 6:11 AM PDT) + +-------+ + + + | Component | Value | Ref Range | Performed | Pathologist | | | | | At | Signature | + +-------+ + + + | PHOSPHORUS, | 2.7 | 2.4 - 4.7 mg/dL | [facility] [...] | + + + + + | [facility] | [address] | [place] [address] | | | SERVICES, CORE | [address] | | | + + + + + MAGNESIUM, PLASMA (08/04/2019 6:11 AM PDT) + +-------+ + + + | Component | Value | Ref Range | Performed | Pathologist | | | | | At | Signature | + +-------+ + + + | MAGNESIUM,P | 2.1 | 1.6 - 2.6 mg/dL | [facility] | | | L[facility]MA | | | [...] | + + + + + | [facility] | [address] | [place] [address] | | | SERVICES, CORE | [address] | | | + + + + + CAPILLARY BLOOD GLUCOSE (NO CHG), POC (08/04/2019 6:03 AM PDT) + +---------+ + + + | Component | Value | Ref Range | Performed | Pathologist | | | | | At | Signature | + +---------+ + + + | BLOOD | 373 (H) | 70 - 99 mg/dL | [facility] - | | | GLUCOSE, | | | [facility] | | | POC | | | [facility] | | | | | | OF CARE | | | | | | TESTS | | + +---------+ + + + + + | Specimen | + + | Blood | + + + + + + + | Performing | Address | City/State/Zipcode | Phone Number | | Organization | | | | + + + + + | [facility] | [address] | [place], [place] | | | [facility] | [facility] | [address] | | | TESTS | | | | + + + + + CAPILLARY BLOOD GLUCOSE (NO CHG), POC (08/04/2019 2:49 AM PDT) + +---------+ + + + | Component | Value | Ref Range | Performed | Pathologist | | | | | At | Signature | + +---------+ + + + | BLOOD | 305 (H) | 70 - 99 mg/dL | [facility] - | | | GLUCOSE, | | | [facility] | | | POC | | | [facility] | | | | | | OF CARE | | | | | | TESTS | | + +---------+ + + + + + | Specimen | + + | Blood | + + + + + + + | Performing | Address | City/State/Zipcode | Phone Number | | Organization | | | | + + + + + | [facility] | [address] | [place], [place] | | | [facility] | [facility] | [address] | | | TESTS | | | | + + + + + CAPILLARY BLOOD GLUCOSE (NO CHG), POC (08/03/2019 10:49 PM PDT) + +---------+ + + + | Component | Value | Ref Range | Performed | Pathologist | | | | | At | Signature | + +---------+ + + + | BLOOD | 229 (H) | 70 - 99 mg/dL | [facility] - | | | GLUCOSE, | | | [facility] | | | POC | | | [facility] | | | | | | OF CARE | | | | | | TESTS | | + +---------+ + + + + + | Specimen | + + | Blood | + + + + + + + | Performing | Address | City/State/Zipcode | Phone Number | | Organization | | | | + + + + + | [facility] | [address] | [place], [place] | | | [facility] | [address] | [address] | | | TESTS | | | | + + + + + CAPILLARY BLOOD GLUCOSE (NO CHG), POC (08/03/2019 8:14 PM PDT) + +---------+ + + + | Component | Value | Ref Range | Performed | Pathologist | | | | | At | Signature | + +---------+ + + + | BLOOD | 128 (H) | 70 - 99 mg/dL | [facility] - | | | GLUCOSE, | | | [facility] | | | POC | | | [facility] | | | | | | OF CARE | | | | | | TESTS | | + +---------+ + + + + + | Specimen | + + | Blood | + + + + + + + | Performing | Address | City/State/Zipcode | Phone Number | | Organization | | | | + + + + + | [facility] | [address] | [place], [place] | | | [facility] | [facility] | [address] | | | TESTS | | | | + + + + + CAPILLARY BLOOD GLUCOSE (NO CHG), POC (08/03/2019 3:55 PM PDT) + +---------+ + + + | Component | Value | Ref Range | Performed | Pathologist | | | | | At | Signature | + +---------+ + + + | BLOOD | 177 (H) | 70 - 99 mg/dL | [facility] - | | | GLUCOSE, | | | [facility] | | | POC | | | [facility] | | | | | | OF CARE | | | | | | TESTS | | + +---------+ + + + + + | Specimen | + + | Blood | + + + + + + + | Performing | Address | City/State/Zipcode | Phone Number | | Organization | | | | + + + + + | [facility] | [address] | [place], [place] | | | [facility] | [facility] | [address] | | | TESTS | | | | + + + + + CAPILLARY BLOOD GLUCOSE (NO CHG), POC (08/03/2019 12:36 PM PDT) + +---------+ + + + | Component | Value | Ref Range | Performed | Pathologist | | | | | At | Signature | + +---------+ + + + | BLOOD | 239 (H) | 70 - 99 mg/dL | [facility] - | | | GLUCOSE, | | | [facility] | | | POC | | | [facility] | | | | | | OF CARE | | | | | | TESTS | | + +---------+ + + + + + | Specimen | + + | Blood | + + + + + + + | Performing | Address | City/State/Zipcode | Phone Number | | Organization | | | | + + + + + | [facility] | [address] | [place], [place] | | | [facility] | [address] | [address] | | | TESTS | | | | + + + + + CAPILLARY BLOOD GLUCOSE (NO CHG), POC (08/03/2019 7:39 AM PDT) + +---------+ + + + | Component | Value | Ref Range | Performed | Pathologist | | | | | At | Signature | + +---------+ + + + | BLOOD | 394 (H) | 70 - 99 mg/dL | [facility] - | | | GLUCOSE, | | | [facility] | | | POC | | | [facility] | | | | | | OF CARE | | | | | | TESTS | | + +---------+ + + + + + | Specimen | + + | Blood | + + + + + + + | Performing | Address | City/State/Zipcode | Phone Number | | Organization | | | | + + + + + | [facility] | [address] | [place], [place] | | | [facility] | [facility] | [address] | | | TESTS | | | | + + + + + PHOSPHORUS, PLASMA (08/03/2019 7:14 AM PDT) + +-------+ + + + | Component | Value | Ref Range | Performed | Pathologist | | | | | At | Signature | + +-------+ + + + | PHOSPHORUS, | 2.7 | 2.4 - 4.7 mg/dL | [facility] [...] | + + + + + | [facility] | [address] | [place] [address] | | | SERVICES, CORE | [address] | | | + + + + + MAGNESIUM, PLASMA (08/03/2019 7:14 AM PDT) + +-------+ + + + | Component | Value | Ref Range | Performed | Pathologist | | | | | At | Signature | + +-------+ + + + | MAGNESIUM,P | 2.0 | 1.6 - 2.6 mg/dL | [facility] | | | [facility] | | | LABORATORY | | | [...] | + + + + + | [facility] | [address] | [place] [address] | | | SERVICES, CORE | [address] | | | + + + + + BASIC METABOLIC SET (NA, K, CL, TCO2, BUN, CR, GLU, CA) (08/03/2019 7:14 AM PDT) + +---------+ + + + | Component | Value | Ref Range | Performed | Pathologist | | | | | At | Signature | + +---------+ + + + | GLUCOSE, | 371 (H) | 70 - 99 mg/dL | [facility] | | | PLASMA | | | LABORATORY | | | (LAB) | | | SERVICES, | | | | | | CORE | | + +---------+ + + + | BUN, PLASMA | 53 (H) | 6 - 20 mg/dL | [facility] | | | (LAB) | | | LABORATORY | | | | | | SERVICES, | | | | | | CORE | | + +---------+ + + + | CREATININE | 1.20 | 0.70 - 1.30 | [facility] | | | PLASMA | | mg/dL | LABORATORY | | | (LAB) | | | SERVICES, | | | | | | CORE | | + +---------+ + + + | EGFR | >60 | >60 mL/min | [facility] | | | - | | | LABORATORY | | | [place] | | | SERVICES, | | | | | | CORE | | + +---------+ + + + | EGFR NON | >60 | >60 mL/min | [facility] | | | -JARRED | | | LABORATORY | | | RICAN | | | SERVICES, | | | | | | CORE | | + +---------+ + + + | SODIUM, | 130 (L) | 136 - 145 | [facility] | | | PLASMA | | mmol/L | LABORATORY | | | (LAB) | | | SERVICES, | | | | | | CORE | | + +---------+ + + + | POTASSIUM, | 4.4 | 3.4 - 5.0 | [facility] | | | PLASMA | | mmol/L | LABORATORY | | | (LAB) | | | SERVICES, | | | | | | CORE | | + +---------+ + + + | CHLORIDE, | 101 | 97 - 108 mmol/L | [facility] | | | PLASMA | | | LABORATORY | | | (LAB) | | | SERVICES, | | | | | | CORE | | + +---------+ + + + | TOTAL CO2, | 21 | 21 - 32 mmol/L | [facility] | | | PLASMA | | | LABORATORY | | | (LAB) | | | SERVICES, | | | | | | CORE | | + +---------+ + + + | CALCIUM, | 8.6 | 8.6 - 10.2 | [facility] | | | PLASMA | | mg/dL | LABORATORY | | | (LAB) | | | SERVICES, | | | | | | CORE | | + +---------+ + + + | ANION GAP | 8 | 4 - 11 mmol/L | [facility] | | | | | | LABORATORY | | | | | | SERVICES, | | | | | | CORE | | + +---------+ + + + | POTASSIUM | No [...] | + + + + + | [facility] | [address] | [place] [address] | | | SERVICES, CORE | [address] | | | + + + + + CAPILLARY BLOOD GLUCOSE (NO CHG), POC (08/03/2019 6:05 AM PDT) + +---------+ + + + | Component | Value | Ref Range | Performed | Pathologist | | | | | At | Signature | + +---------+ + + + | BLOOD | 387 (H) | 70 - 99 mg/dL | [facility] - | | | GLUCOSE, | | | [facility] | | | POC | | | [facility] | | | | | | [facility] | | | | | | TESTS | | + +---------+ + + + + + | Specimen | + + | Blood | + + + + + + + | Performing | Address | City/State/Zipcode | Phone Number | | Organization | | | | + + + + + | [facility] | [address] | [place], [place] | | | [facility] | [address] | [address] | | | TESTS | | | | + + + + + CAPILLARY BLOOD GLUCOSE (NO CHG), POC (08/03/2019 1:51 AM PDT) + +---------+ + + + | Component | Value | Ref Range | Performed | Pathologist | | | | | At | Signature | + +---------+ + + + | BLOOD | 330 (H) | 70 - 99 mg/dL | [facility] - | | | GLUCOSE, | | | [facility] | | | POC | | | [facility] | | | | | | [facility]ARE | | | | | | TESTS | | + +---------+ + + + + + | Specimen | + + | Blood | + + + + + + + | Performing | Address | City/State/Zipcode | Phone Number | | Organization | | | | + + + + + | [facility] | [address] | [place], [place] | | | [facility] | [address] | [address] | | | TESTS | | | | + + + + + CAPILLARY BLOOD GLUCOSE (NO CHG), POC (08/03/2019 12:07 AM PDT) + +---------+ + + + | Component | Value | Ref Range | Performed | Pathologist | | | | | At | Signature | + +---------+ + + + | BLOOD | 301 (H) | 70 - 99 mg/dL | [facility] - | | | GLUCOSE, | | | [facility] | | | POC | | | [facility] | | | | | | [facility]ARE | | | | | | TESTS | | + +---------+ + + + + + | Specimen | + + | Blood | + + + + + + + | Performing | Address | City/State/Zipcode | Phone Number | | Organization | | | | + + + + + | [facility] | [address] | [place], [place] | | | [facility] | [address] | [address] | | | TESTS | | | | + + + + + CAPILLARY BLOOD GLUCOSE (NO CHG), POC (08/02/2019 10:22 PM PDT) + +---------+ + + + | Component | Value | Ref Range | Performed | Pathologist | | | | | At | Signature | + +---------+ + + + | BLOOD | 297 (H) | 70 - 99 mg/dL | [facility] - | | | GLUCOSE, | | | [facility] | | | POC | | | [facility] | | | | | | [facility]ARE | | | | | | TESTS | | + +---------+ + + + + + | Specimen | + + | Blood | + + + + + + + | Performing | Address | City/State/Zipcode | Phone Number | | Organization | | | | + + + + + | [facility] | [address] | [place], [place] | | | [facility] | [address] | [address] | | | TESTS | | | | + + + + + CAPILLARY BLOOD GLUCOSE (NO CHG), POC (08/02/2019 5:13 PM PDT) + +---------+ + + + | Component | Value | Ref Range | Performed | Pathologist | | | | | At | Signature | + +---------+ + + + | BLOOD | 183 (H) | 70 - 99 mg/dL | [facility] - | | | GLUCOSE, | | | [facility] | | | POC | | | [facility] | | | | | | [facility] | | | | | | TESTS | | + +---------+ + + + + + | Specimen | + + | Blood | + + + + + + + | Performing | Address | City/State/Zipcode | Phone Number | | Organization | | | | + + + + + | [facility] | [address] | [place], [place] | | | [facility] | [address] | [address] | | | TESTS | | | | + + + + + CAPILLARY BLOOD GLUCOSE (NO CHG), POC (08/02/2019 12:20 PM PDT) + +---------+ + + + | Component | Value | Ref Range | Performed | Pathologist | | | | | At | Signature | + +---------+ + + + | BLOOD | 167 (H) | 70 - 99 mg/dL | [facility] | | | GLUCO[facility], | | | [facility] | | | POC | | | [facility] | | | | | | OF CARE | | | | | | TESTS | | + +---------+ + + + + + | Specimen | + + | Blood | + + + + + + + | Performing | Address | City/State/Zipcode | Phone Number | | Organization | | | | + + + + + | [facility] | [address] | [place], [place] | | | [facility] | [facility] | [address] | | | TESTS | | | | + + + + + CAPILLARY BLOOD GLUCOSE (NO CHG), POC (08/02/2019 8:58 AM PDT) + +---------+ + + + | Component | Value | Ref Range | Performed | Pathologist | | | | | At | Signature | + +---------+ + + + | BLOOD | 196 (H) | 70 - 99 mg/dL | [facility] | | | [facility] | | | [facility] | | | POC | | | [facility] | | | | | | OF CARE | | | | | | TESTS | | + +---------+ + + + + + | Specimen | + + | Blood | + + + + + + + | Performing | Address | City/State/Zipcode | Phone Number | | Organization | | | | + + + + + | [facility] | [address] | [place], [place] | | | [facility] | [address] | [address] | | | TESTS | | | | + + + + + CBC (HEMOGRAM) ONLY (08/02/2019 5:18 AM PDT) + + + + + + | Component | Value | Ref Range | Performed | Pathologist | | | | | At | Signature | + + + + + + | WHITE CELL | 4.69 | 3.50 - 10.80 | [facility] | | | COUNT | | K/cu mm | LABORATORY | | | | | | SERVICES, | | | | | | CORE | | + + + + + + | RED CELL | 2.22 (L) | 4.50 - 6.00 | [facility] | | | COUNT | | M/cu mm | LABORATORY | | | | | | SERVICES, | | | | | | CORE | | + + + + + + | HEMOGLOBIN | 7.3 (L) | 13.5 - 17.5 | [facility] | | | | | g/dL | LABORATORY | | | | | | SERVICES, | | | | | | CORE | | + + + + + + | HEMATOCRIT | 21.7 (L) | 41.0 - 53.0 % | [facility] | | | | | | LABORATORY | | | | | | SERVICES, | | | | | | CORE | | + + + + + + | MCV | 97.7 | 80.0 - 100.0 fL | [facility] | | | | | | LABORATORY | | | | | | SERVICES, | | | | | | CORE | | + + + + + + | MCHC | 33.6 | 32.0 - 36.0 | [facility] | | | | | g/dL | LABORATORY | | | | | | SERVICES, | | | | | | CORE | | + + + + + + | RDW SD | 62.3 (H) | 35.1 - 46.3 fL | [facility] | | | | | | LABORATORY | | | | | | SERVICES, | | | | | | CORE | | + + + + + + | PLATELET | 30 (L) | 150 - 400 K/cu | [...] + | [facility] | [address] | [place] [address] | | | SERVICES, CORE | [address] | | | + + + + + COAGULOPATHY PANEL (INR,APTT,FIBRINOGEN) (08/02/2019 5:18 AM PDT) + + + + + + | Component | Value | Ref Range | Performed | Pathologist | | | | | At | Signature | + + + + + + | INR | 3.22 (H) | 0.90 - 1.20 INR | [facility] | | | | | | LABORATORY | | | | | | SERVICES, | | | | | | CORE | | + + + + + + | APTT | 71.8 (H) | 26.0 - 36.0 | [facility] | | | | | seconds | LABORATORY | | | | | | SERVICES, | | | | | | CORE | | + + + + + + | FIBRINOGEN | 135 (L) | 150 - 450 mg/dL | [facility] | | | LEVEL | | | LABORATORY | | | [...] Therapeutic ranges for full anticoagulation: INR for | [facility] | | Venous Thromboembolism (2.0 - 3.0) INR INR for | LABORATORY | | most patients with mech. valves (2.5 - 3.5) INR APTT values for | SERVICES, CORE | | monitoring heparin therapy may be affected by specimens processed >1 | | | hour after collection. APTT Therapeutic Range: | | | (75 - 120) sec Heparin levels of 0.35 - 0.7 U/mL | | | | | + + + + + + + + | Performing | Address | City/State/Zipcode | Phone Number | | Organization | | | | + + + + + | [facility] | [address] | [place] [address] | | | SERVICES, CORE | [address] | | | + + + + + COMPLETE METABOLIC SET (NA,K,CL,CO2,BUN,CREAT,GLUC,CA,AST,ALT,BILI TOTAL,ALK PHOS,ALB,PROT TOTAL) (08/02/2019 5:18 AM PDT) + +---------+ + + + | Component | Value | Ref Range | Performed | Pathologist | | | | | At | Signature | + +---------+ + + + | GLUCOSE, | 206 (H) | 70 - 99 mg/dL | [facility] | | | PLASMA | | | LABORATORY | | | (LAB) | | | SERVICES, | | | | | | CORE | | + +---------+ + + + | BUN, PLASMA | 52 (H) | 6 - 20 mg/dL | [facility] | | | (LAB) | | | LABORATORY | | | | | | SERVICES, | | | | | | CORE | | + +---------+ + + + | CREATININE | 1.21 | 0.70 - 1.30 | [facility] | | | PLASMA | | mg/dL | LABORATORY | | | (LAB) | | | SERVICES, | | | | | | CORE | | + +---------+ + + + | EGFR | >60 | >60 mL/min | [facility] | | | - | | | LABORATORY | | | [facility] | | | SERVICES, | | | | | | CORE | | + +---------+ + + + | EGFR NON | >60 | >60 mL/min | [facility] | | | -JARRED | | | LABORATORY | | | RICAN | | | SERVICES, | | | | | | CORE | | + +---------+ + + + | SODIUM, | 131 (L) | 136 - 145 | [facility] | | | PLASMA | | mmol/L | LABORATORY | | | (LAB) | | | SERVICES, | | | | | | CORE | | + +---------+ + + + | POTASSIUM, | 4.3 | 3.4 - 5.0 | [facility] | | | PLASMA | | mmol/L | LABORATORY | | | (LAB) | | | SERVICES, | | | | | | CORE | | + +---------+ + + + | CHLORIDE, | 103 | 97 - 108 mmol/L | [facility] | | | PLASMA | | | LABORATORY | | | (LAB) | | | SERVICES, | | | | | | CORE | | + +---------+ + + + | TOTAL CO2, | 19 (L) | 21 - 32 mmol/L | [facility] | | | PLASMA | | | LABORATORY | | | (LAB) | | | SERVICES, | | | | | | CORE | | + +---------+ + + + | CALCIUM, | 8.6 | 8.6 - 10.2 | [facility] | | | PLASMA | | mg/dL | LABORATORY | | | (LAB) | | | SERVICES, | | | | | | CORE | | + +---------+ + + + | CALCIUM(ALB | 9.5 | 8.6 - 10.2 | [facility] | | | CORRECTED) | | mg/dL | LABORATORY | | | | | | SERVICES, | | | | | | CORE | | + +---------+ + + + | BILIRUBIN | 9.4 (H) | 0.3 - 1.2 mg/dL | [facility] | | | TOTAL | | | LABORATORY | | | | | | SERVICES, | | | | | | CORE | | + +---------+ + + + | TOTAL | 6.3 (L) | 6.4 - 8.2 g/dL | [facility] | | | PROTEIN, | | | LABORATORY | | | PLASMA | | | SERVICES, | | | (LAB) | | | CORE | | + +---------+ + + + | ALBUMIN, | 2.9 (L) | 3.5 - 4.7 g/dL | [facility] | | | PLASMA | | | LABORATORY | | | (LAB) | | | SERVICES, | | | | | | CORE | | + +---------+ + + + | ALK PHOS | 146 (H) | 53 - 128 U/L | [facility] | | | | | | LABORATORY | | | | | | SERVICES, | | | | | | CORE | | + +---------+ + + + | AST(SGOT) | 95 (H) | <=41 U/L | [facility] | | | | | | LABORATORY | | | | | | SERVICES, | | | | | | CORE | | + +---------+ + + + | ALT (SGPT) | 56 | <=60 U/L | [facility] | | | | | | LABORATORY | | | | | | SERVICES, | | | | | | CORE | | + +---------+ + + + | ANION GAP | 9 | 4 - 11 mmol/L | [facility] | | | | | | LABORATORY | | | | | | SERVICES, | | | | | | CORE | | + +---------+ + + + | ANION | 11 | 4 - 11 mmol/L | [facility] | | | GAP(ALB | | | LABORATORY | | | CORRECTED) | | | SERVICES, | | | | | | CORE | | + +---------+ + + + | POTASSIUM | No Hemo | | [facility] | | | CMNT | | | LABORATORY | | | | | | SERVICES, | | | | | | CORE | | + +---------+ + + + | BILI T CMNT | No Hemo | | [facility] | | | | | | LABORATORY | | | | | | SERVICES, | | | | | | CORE | | + +---------+ + + + | AST CMNT | [...] MDRD equation recommended by the National | [facility] | | Kidney Disease Education Program. Estimated [...] | + + + + + | [facility] | [address] | [place] [address] | | | CLAUDIA, ARTIS | [address] | | | + + + + + CARDIOLOGY (08/02/2019 12:00 AM PDT) + + + | Narrative | Performed At | + + + | | | + + + CAPILLARY BLOOD GLUCOSE (NO CHG), POC (08/01/2019 11:38 PM PDT) + +---------+ + + + | Component | Value | Ref Range | Performed | Pathologist | | | | | At | Signature | + +---------+ + + + | BLOOD | 200 (H) | 70 - 99 mg/dL | [facility] | | | GLUCOSE, | | | [facility] | | | POC | | | [facility] | | | | | | OF CARE | | | | | | TESTS | | + +---------+ + + + + + | Specimen | + + | Blood | + + + + + + + | Performing | Address | City/State/Zipcode | Phone Number | | Organization | | | | + + + + + | [facility] | [address] | [place], [place] | | | [facility] | [address] | [address] | | | TESTS | | | | + + + + + CAPILLARY BLOOD GLUCOSE (NO CHG), POC (08/01/2019 8:08 PM PDT) + +---------+ + + + | Component | Value | Ref Range | Performed | Pathologist | | | | | At | Signature | + +---------+ + + + | BLOOD | 145 (H) | 70 - 99 mg/dL | [facility] | | | GLUCOSE, | | | [facility] | | | POC | | | [facility] | | | | | | OF CARE | | | | | | TESTS | | + +---------+ + + + + + | Specimen | + + | Blood | + + + + + + + | Performing | Address | City/State/Zipcode | Phone Number | | Organization | | | | + + + + + | [facility] | [address] | [place], [place] | | | [facility] | [facility] | [address] | | | TESTS | | | | + + + + + X-RAY ABD LTD FEEDING TUBE EVAL PORTABLE (08/01/2019 6:28 PM PDT) + + | Specimen | + + | | + + + + + | Narrative | Performed At | + + + | EXAM: AR ABD LTD FEEDING TUBE EVAL INDICATION: Confirm DHT | [facility] | | placement TECHNIQUE: Semi-upright portable view of the upper | RADIOLOGY VOICE | | abdomen. Comparison: 07/27/2019. FINDINGS/IMPRESSION: | RECOGNITION 2 | | Dobbhoff tube extends into the distal stomach. Visualized air-filled | | | loops of bowel are nondilated. I have personally reviewed the | | | images and, if necessary, edited the report. I agree with the report | | | as now presented. Final signature: Jeanne Hunter MD | | | 08/02/2019 10:14 AM Preliminary: Jeanne Hunter MD Dictation | | | initiated: Jeanne Hunter MD 08/02/2019 10:12 AM | | + + + + + | Procedure Note | + + | Service Account, Radiant Res In Interface - 08/02/2019 10:15 AM PDT EXAM: AR ABD LTD | | FEEDING TUBE EVAL INDICATION: Confirm DHT placement TECHNIQUE: Semi-upright portable | | view of the upper abdomen. Comparison: 07/27/2019. FINDINGS/IMPRESSION: Dobbhoff tube | | extends into the distal stomach. Visualized air-filled loops of bowel are nondilated. I | | have personally reviewed the images and, if necessary, edited the report. I agree with | | the report as now presented. Final signature: Jeanne Hunter MD 08/02/2019 10:14 AM | | Preliminary: Jeanne Hunter MD Dictation initiated: Jeanne Hunter MD 08/02/2019 | | 10:12 AM | |FINDINGS/IMPRESSION: | | | |Dobbhoff tube extends into the distal stomach. Visualized air-filled loops of bowel are non dilated. | | | |I have personally reviewed the images and, if necessary, edited the report. I agree with th e report as now presented. | | | |Final signature: Jeanne Hunter MD 08/02/2019 10:14 AM | |Preliminary: Jeanne Hunter MD | |Dictation initiated: Jeanne Hunter MD 08/02/2019 10:12 AM | + + + +---------+ + + | Performing | Address | City/State/Zipcode | Phone Number | | Organization | | | | + +---------+ + + | [facility] | | | | | VOICE RECOGNITION 2 | | | | + +---------+ + + CAPILLARY BLOOD GLUCOSE (NO CHG), POC (08/01/2019 5:20 PM PDT) + +---------+ + + + | Component | Value | Ref Range | Performed | Pathologist | | | | | At | Signature | + +---------+ + + + | BLOOD | 149 (H) | 70 - 99 mg/dL | [facility] | | | GLUCOSE, | | | [facility] | | | POC | | | [facility] | | | | | | OF CARE | | | | | | TESTS | | + +---------+ + + + + + | Specimen | + + | Blood | + + + + + + + | Performing | Address | City/State/Zipcode | Phone Number | | Organization | | | | + + + + + | [facility] | [address] | [place], [place] | | | [facility] | [address] | [address] | | | TESTS | | | | + + + + + 12 LEAD ECG (08/01/2019 2:25 PM PDT) + + + + + + | Component | Value | Ref Range | Performed | Pathologist | | | | | At | Signature | + + + + + + | VENTRICULAR | 64 | bpm | [facility] | | | RATE | | | OF | | | | | | CARDIOLOGY | | + + + + + + | ATRIAL RATE | 65 | ms | [facility] | | | | | | OF | | | | | | CARDIOLOGY | | + + + + + + | P-R | 201 | ms | [facility] | | | INTERVAL | | | OF | | | | | | CARDIOLOGY | | + + + + + + | P AXIS | 37 | deg | [facility] | | | | | | OF | | | | | | CARDIOLOGY | | + + + + + + | QRS | 140 | ms | [facility] | | | DURATION | | | OF | | | | | | CARDIOLOGY | | + + + + + + | QT | 467 | ms | [facility] | | | | | | OF | | | | | | CARDIOLOGY | | + + + + + + | FRANCE-BELLA | 481 | ms | [facility] | | | | | | OF | | | | | | CARDIOLOGY | | + + + + + + | R AXIS | 59 | deg | [facility] | | | | | | OF | | | | | | CARDIOLOGY | | + + + + + + | T AXIS | 17 | deg | [facility] | | | | | | OF | | | | | | CARDIOLOGY | | + + + + + + | ECG | Sinus rhythm | | [facility] | | | IMPRESSION | | | OF | | | | | | CARDIOLOGY | | + + + + + + | 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 | | [facility] | | | IMPRESSION | | | OF | | | | | | CARDIOLOGY | | + + + + + + | ECG | Borderline prolonged QT | | [facility] | | | IMPRESSION | interval- ABNORMAL ECG - | | OF | | | | | | CARDIOLOGY | | + + + + + + | ECG | Electronically signed | | [facility] | | | IMPRESSION | by: ALIREZA SORIANO | | OF | | | | 08-02-2019 10:43:50 | | CARDIOLOGY | | + + [...] DEPT OF | [address] | [place], [place] | | | CARDIOLOGY | [address] | [address] | | + + + + + CAPILLARY BLOOD GLUCOSE (NO CHG), POC (08/01/2019 12:13 PM PDT) + +---------+ + + + | Component | Value | Ref Range | Performed | Pathologist | | | | | At | Signature | + +---------+ + + + | BLOOD | 214 (H) | 70 - 99 mg/dL | [facility] | | | GLUCOSE, | | | [facility] | | | POC | | | [facility] | | | | | | OF CARE | | | | | | TESTS | | + +---------+ + + + + + | Specimen | + + | Blood | + + + + + + + | Performing | Address | City/State/Zipcode | Phone Number | | Organization | | | | + + + + + | [facility] | [address] | [place], [place] | | | [facility] | [facility] | [address] | | | TESTS | | | | + + + + + CAPILLARY BLOOD GLUCOSE (NO CHG), POC (08/01/2019 8:27 AM PDT) + +---------+ + + + | Component | Value | Ref Range | Performed | Pathologist | | | | | At | Signature | + +---------+ + + + | BLOOD | 228 (H) | 70 - 99 mg/dL | [facility] | | | GLUCOSE, | | | [facility] | | | POC | | | [facility] | | | | | | OF CARE | | | | | | TESTS | | + +---------+ + + + + + | Specimen | + + | Blood | + + + + + + + | Performing | Address | City/State/Zipcode | Phone Number | | Organization | | | | + + + + + | [facility] | [address] | [place], [place] | | | [facility] | [address] | [address] | | | TESTS | | | | + + + + + MAGNESIUM, PLASMA (08/01/2019 7:56 AM PDT) + +-------+ + + + [...] + | [facility] | [address] | [place] [address] | | | SERVICES, CORE | [address] | | | + + + + + COMPLETE METABOLIC SET (NA,K,CL,CO2,BUN,CREAT,GLUC,CA,AST,ALT,BILI TOTAL,ALK PHOS,ALB,PROT TOTAL) (08/01/2019 7:56 AM PDT) + + + + + + | Component | Value | Ref Range | Performed | Pathologist | | | | | At | Signature | + + + + + + | GLUCOSE, | 221 (H) | 70 - 99 mg/dL | [facility] | | | PLASMA | | | LABORATORY | | | (LAB) | | | SERVICES, | | | | | | CORE | | + + + + + + | BUN, PLASMA | 43 (H) | 6 - 20 mg/dL | [facility] | | | (LAB) | | | LABORATORY | | | | | | SERVICES, | | | | | | CORE | | + + + + + + | CREATININE | 1.04 | 0.70 - 1.30 | [facility] | | | PLASMA | | mg/dL | LABORATORY | | | (LAB) | | | SERVICES, | | | | | | CORE | | + + + + + + | EGFR | >60 | >60 mL/min | [facility] | | | - | | | LABORATORY | | | [facility] | | | SERVICES, | | | | | | CORE | | + + + + + + | EGFR NON | >60 | >60 mL/min | [facility] | | | -JARRED | | | LABORATORY | | | RICAN | | | SERVICES, | | | | | | CORE | | + + + + + + | SODIUM, | 129 (L) | 136 - 145 | [facility] | | | PLASMA | | mmol/L | LABORATORY | | | (LAB) | | | SERVICES, | | | | | | CORE | | + + + + + + | POTASSIUM, | 4.5 | 3.4 - 5.0 | [facility] | | | PLASMA | | mmol/L | LABORATORY | | | (LAB) | | | SERVICES, | | | | | | CORE | | + + + + + + | CHLORIDE, | 101 | 97 - 108 mmol/L | [facility] | | | PLASMA | | | LABORATORY | | | (LAB) | | | SERVICES, | | | | | | CORE | | + + + + + + | TOTAL CO2, | 21 | 21 - 32 mmol/L | [facility] | | | PLASMA | | | LABORATORY | | | (LAB) | | | SERVICES, | | | | | | CORE | | + + + + + + | CALCIUM, | 9.2 | 8.6 - 10.2 | [facility] | | | PLASMA | | mg/dL | LABORATORY | | | (LAB) | | | SERVICES, | | | | | | CORE | | + + + + + + | CALCIUM(ALB | 9.8 | 8.6 - 10.2 | [facility] | | | CORRECTED) | | mg/dL | LABORATORY | | | | | | SERVICES, | | | | | | CORE | | + + + + + + | BILIRUBIN | 11.2 (H) | 0.3 - 1.2 mg/dL | [facility] | | | TOTAL | | | LABORATORY | | | | | | SERVICES, | | | | | | CORE | | + + + + + + | TOTAL | 7.0 | 6.4 - 8.2 g/dL | [facility] | | | PROTEIN, | | | LABORATORY | | | PLASMA | | | SERVICES, | | | (LAB) | | | CORE | | + + + + + + | ALBUMIN, | 3.2 (L) | 3.5 - 4.7 g/dL | [facility] | | | PLASMA | | | LABORATORY | | | (LAB) | | | SERVICES, | | | | | | CORE | | + + + + + + | ALK PHOS | 146 (H) | 53 - 128 U/L | [facility] | | | | | | LABORATORY | | | | | | SERVICES, | | | | | | CORE | | + + + + + + | AST(SGOT) | 97 (H) | <=41 U/L | [facility] | [...] + + + | ANION GAP | 7 | 4 - 11 mmol/L | [facility] | | | | | | LABORATORY | | | | | | SERVICES, | | | | | | CORE | | + + + + + + | ANION | 9 | 4 - 11 mmol/L | [facility] [...] MDRD equation recommended by the National | [facility] | | Kidney Disease Education Program. Estimated [...] + | [facility] | [address] | [place] [address] | | | SERVICES, CORE | [address] | | | + + + + + CBC (HEMOGRAM) ONLY (08/01/2019 7:55 AM PDT) + + + + + + | Component | Value | Ref Range | Performed | Pathologist | | | | | At | Signature | + + + + + + | WHITE CELL | 4.95 | 3.50 - 10.80 | [facility] | | | COUNT | | K/cu mm | LABORATORY | | | | | | SERVICES, | | | | | | CORE | | + + + + + + | RED CELL | 2.43 (L) | 4.50 - 6.00 | [facility] | | | COUNT | | M/cu mm | LABORATORY | | | | | | SERVICES, | | | | | | CORE | | + + + + + + | HEMOGLOBIN | 8.2 (L) | 13.5 - 17.5 | [facility] | | | | | g/dL | LABORATORY | | | | | | SERVICES, | | | | | | CORE | | + + + + + + | HEMATOCRIT | 23.8 (L) | 41.0 - 53.0 % | [facility] | | | | | | LABORATORY | | | | | | SERVICES, | | | | | | CORE | | + + + + + + | MCV | 97.9 | 80.0 - 100.0 fL | [facility] | | | | | | LABORATORY | | | | | | SERVICES, | | | | | | CORE | | + + + + + + | MCHC | 34.5 | 32.0 - 36.0 | [facility] | | | | | g/dL | LABORATORY | | | | | | SERVICES, | | | | | | CORE | | + + + + + + | RDW SD | 62.5 (H) | 35.1 - 46.3 fL | [facility] | | | | | | LABORATORY | | | | | | SERVICES, | | | | | | CORE | | + + + + + + | PLATELET | 31 (L) | 150 - 400 K/cu | [facility] | | | COUNT | | mm | LABORATORY | | | | | | SERVICES, | | | | | | CORE | | + + + + + + | MPV | 11.4 | 9.7 - 12.3 fL | [facility] | | | | | | LABORATORY | | | | | | SERVICES, | | | | | | CORE | | + + + + + + | NRBC% | 0.6 (H) | 0.0 - 0.3 % | [facility] | | | | | | LABORATORY | | | | | | SERVICES, | | | | | | CORE | | + + + + + + | NRBC# | 0.03 (H) | 0.00 - 0.02 | [facility] | [...] + + + + + | [facility] | [address] | [place] [address] | | | SERVICES, CORE | [address] | | | + + + + + COAGULOPATHY PANEL (INR,APTT,FIBRINOGEN) (08/01/2019 7:55 AM PDT) + + + + + + | Component | Value | Ref Range | Performed | Pathologist | | | | | At | Signature | + + + + + + | INR | 3.13 (H) | 0.90 - 1.20 INR | [facility] | | | | | | LABORATORY | | | | | | SERVICES, | | | | | | CORE | | + + + + + + | APTT | 69.7 (H) | 26.0 - 36.0 | [facility] | | | | | seconds | LABORATORY | | | | | | SERVICES, | | | | | | CORE | | + + + + + + | FIBRINOGEN | 136 (L) | 150 - 450 mg/dL | [facility] | | | LEVEL | | | LABORATORY | | | [...] Therapeutic ranges for full anticoagulation: INR for | [facility] | | Venous Thromboembolism (2.0 - 3.0) INR INR for | LABORATORY | | most patients with mech. valves (2.5 - 3.5) INR APTT values for | SERVICES, CORE | | monitoring heparin therapy may be affected by specimens processed >1 | | | hour after collection. APTT Therapeutic Range: | | | (75 - 120) sec Heparin levels of 0.35 - 0.7 U/mL | | | | | + + + + + + + + | Performing | Address | City/State/Zipcode | Phone Number | | Organization | | | | + + + + + | [facility] | [address] | [place] [address] | | | SERVICES, CORE | [address] | | | + + + + + CARDIOLOGY (08/01/2019 12:00 AM PDT) + + + | Narrative | Performed At | + + + | | | + + + CAPILLARY BLOOD GLUCOSE (NO CHG), POC (07/31/2019 9:43 PM PDT) + +---------+ + + + | Component | Value | Ref Range | Performed | Pathologist | | | | | At | Signature | + +---------+ + + + | BLOOD | 126 (H) | 70 - 99 mg/dL | [facility] | | | [facility], | | | [facility] | | | POC | | | [facility] | | | | | | [facility] CARE | | | | | | TESTS | | + +---------+ + + + + + | Specimen | + + | Blood | + + + + + + + | Performing | Address | City/State/Zipcode | Phone Number | | Organization | | | | + + + + + | [facility] | [address] | [place], [place] | | | [facility] | [address] | [address] | | | TESTS | | | | + + + + + CAPILLARY BLOOD GLUCOSE (NO CHG), POC (07/31/2019 5:43 PM PDT) + +---------+ + + + | Component | Value | Ref Range | Performed | Pathologist | | | | | At | Signature | + +---------+ + + + | BLOOD | 178 (H) | 70 - 99 mg/dL | [facility] | | | [facility], | | | [facility] | | | POC | | | [facility] | | | | | | [facility] CARE | | | | | | TESTS | | + +---------+ + + + + + | Specimen | + + | Blood | + + + + + + + | Performing | Address | City/State/Zipcode | Phone Number | | Organization | | | | + + + + + | [facility] | [address] | [place], [place] | | | [facility] | [address] | [address] | | | TESTS | | | | + + + + + CAPILLARY BLOOD GLUCOSE (NO CHG), POC (07/31/2019 11:59 AM PDT) + +---------+ + + + | Component | Value | Ref Range | Performed | Pathologist | | | | | At | Signature | + +---------+ + + + | BLOOD | 204 (H) | 70 - 99 mg/dL | [facility] | | | [facility], | | | [facility] | | | POC | | | [facility] | | | | | | OF CARE | | | | | | TESTS | | + +---------+ + + + + + | Specimen | + + | Blood | + + + + + + + | Performing | Address | City/State/Zipcode | Phone Number | | Organization | | | | + + + + + | [facility] | [address] | [place], [place] | | | [facility] | [address] | [address] | | | TESTS | | | | + + + + + CAPILLARY BLOOD GLUCOSE (NO CHG), POC (07/31/2019 8:37 AM PDT) + +---------+ + + + | Component | Value | Ref Range | Performed | Pathologist | | | | | At | Signature | + +---------+ + + + | BLOOD | 187 (H) | 70 - 99 mg/dL | [facility] | | | GLU[facility], | | | [facility] | | | POC | | | [facility] | | | | | | OF CARE | | | | | | TESTS | | + +---------+ + + + + + | Specimen | + + | Blood | + + + + + + + | Performing | Address | City/State/Zipcode | Phone Number | | Organization | | | | + + + + + | [facility] | [address] | [place], [place] | | | [facility] | [address] | [address] | | | TESTS | | | | + + + + + CBC (HEMOGRAM) ONLY (07/31/2019 4:41 AM PDT) + + + + + + | Component | Value | Ref Range | Performed | Pathologist | | | | | At | Signature | + + + + + + | WHITE CELL | 4.09 | 3.50 - 10.80 | [facility] | | | COUNT | | K/cu mm | LABORATORY | | | | | | SERVICES, | | | | | | CORE | | + + + + + + | RED CELL | 2.36 (L) | 4.50 - 6.00 | [facility] | | | COUNT | | M/cu mm | LABORATORY | | | | | | SERVICES, | | | | | | CORE | | + + + + + + | HEMOGLOBIN | 8.0 (L) | 13.5 - 17.5 | [facility] | | | | | g/dL | LABORATORY | | | | | | SERVICES, | | | | | | CORE | | + + + + + + | HEMATOCRIT | 23.2 (L) | 41.0 - 53.0 % | [facility] | | | | | | LABORATORY | | | | | | SERVICES, | | | | | | CORE | | + + + + + + | MCV | 98.3 | 80.0 - 100.0 fL | [facility] | | | | | | LABORATORY | | | | | | SERVICES, | | | | | | CORE | | + + + + + + | MCHC | 34.5 | 32.0 - 36.0 | [facility] | | | | | g/dL | LABORATORY | | | | | | SERVICES, | | | | | | CORE | | + + + + + + | RDW SD | 61.1 (H) | 35.1 - 46.3 fL | [facility] | | | | | | LABORATORY | | | | | | SERVICES, | | | | | | CORE | | + + + + + + | PLATELET | 26 (L) | 150 - 400 K/cu | [facility] | | | COUNT | | mm | LABORATORY | | | | | | SERVICES, | | | | | | CORE | | + + + + + + | MPV | 10.7 | 9.7 - 12.3 fL | [facility] | | | | | | LABORATORY | | | | | | SERVICES, | | | | | | CORE | | + + + + + + | NRBC% | 0.5 (H) | 0.0 - 0.3 % | [facility] | | | | | | LABORATORY | | | | | | SERVICES, | | | | | | CORE | | + + + + + + | NRBC# | 0.02 | 0.00 - 0.02 | [facility] | [...] + | [facility] | [address] | [place] [address] | | | SERVICES, CORE | [address] | | | + + + + + COAGULOPATHY PANEL (INR,APTT,FIBRINOGEN) (07/31/2019 4:41 AM PDT) + + + + + + | Component | Value | Ref Range | Performed | Pathologist | | | | | At | Signature | + + + + + + | INR | 3.15 (H) | 0.90 - 1.20 INR | [facility] | | | | | | LABORATORY | | | | | | SERVICES, | | | | | | CORE | | + + + + + + | APTT | 67.4 (H) | 26.0 - 36.0 | [facility] | | | | | seconds | LABORATORY | | | | | | SERVICES, | | | | | | CORE | | + + + + + + | FIBRINOGEN | 127 (L) | 150 - 450 mg/dL | [facility] | | | LEVEL | | | LABORATORY | | | [...] with mech. valves (2.5 - 3.5) INR APTT values for | SERVICES, CORE | | monitoring heparin therapy may be affected by specimens processed >1 | | | hour after collection. APTT Therapeutic Range: | | | (75 - 120) sec Heparin levels of 0.35 - 0.7 U/mL | | + + + + + + + + | Performing | Address | City/State/Zipcode | Phone Number | | Organization | | | | + + + + + | [facility] | [address] | [place] [address] | | | SERVICES, CORE | [address] | | | + + + + + COMPLETE METABOLIC SET (NA,K,CL,CO2,BUN,CREAT,GLUC,CA,AST,ALT,BILI TOTAL,ALK PHOS,ALB,PROT TOTAL) (07/31/2019 4:41 AM PDT) + + + + + + | Component | Value | Ref Range | Performed | Pathologist | | | | | At | Signature | + + + + + + | GLUCOSE, | 204 (H) | 70 - 99 mg/dL | [facility] | | | PLASMA | | | LABORATORY | | | (LAB) | | | SERVICES, | | | | | | CORE | | + + + + + + | BUN, PLASMA | 39 (H) | 6 - 20 mg/dL | [facility] | | | (LAB) | | | LABORATORY | | | | | | SERVICES, | | | | | | CORE | | + + + + + + | CREATININE | 1.04 | 0.70 - 1.30 | [facility] | | | PLASMA | | mg/dL | LABORATORY | | | (LAB) | | | SERVICES, | | | | | | CORE | | + + + + + + | EGFR | >60 | >60 mL/min | [facility] | | | - | | | LABORATORY | | | TURKISH | | | SERVICES, | | | | | | CORE | | + + + + + + | EGFR NON | >60 | >60 mL/min | [facility] | | | -JARRED | | | LABORATORY | | | RICAN | | | SERVICES, | | | | | | CORE | | + + + + + + | SODIUM, | 132 (L) | 136 - 145 | [facility] [...] + + + + | CHLORIDE, | 104 | 97 - 108 mmol/L | [facility] | | | PLASMA | | | LABORATORY | | | (LAB) | | | SERVICES, | | | | | | CORE | | + + + + + + | TOTAL CO2, | 21 | 21 - 32 mmol/L | [facility] | | | PLASMA | | | LABORATORY | | | (LAB) | | | SERVICES, | | | | | | CORE | | + + + + + + | CALCIUM, | 9.0 | 8.6 - 10.2 | [facility] | | | PLASMA | | mg/dL | LABORATORY | | | (LAB) | | | SERVICES, | | | | | | CORE | | + + + + + + | CALCIUM(ALB | 9.8 | 8.6 - 10.2 | [facility] | | | CORRECTED) | | mg/dL | LABORATORY | | | | | | SERVICES, | | | | | | CORE | | + + + + + + | BILIRUBIN | 11.3 (H) | 0.3 - 1.2 mg/dL | [...] + + + | ALBUMIN, | 3.0 (L) | 3.5 - 4.7 g/dL | [facility] | | | PLASMA | | | LABORATORY | | | (LAB) | | | SERVICES, | | | | | | CORE | | + + + + + + | ALK PHOS | 133 (H) | 53 - 128 U/L | [facility] | | | | | | LABORATORY | | | | | | SERVICES, | | | | | | CORE | | + + + + + + | AST(SGOT) | 75 (H) | <=41 U/L | [facility] | | | | | | LABORATORY | | | | | | SERVICES, | | | | | | CORE | | + + + + + + | ALT (SGPT) | 45 | <=60 U/L | [facility] | | | | | | LABORATORY | | | | | | SERVICES, | | | | | | CORE | | + + + + + + | ANION GAP | 7 | 4 - 11 mmol/L | [facility] | | | | | | LABORATORY | | | | | | SERVICES, | | | | | | CORE | | + + + + + + | ANION | 9 | 4 - 11 mmol/L | [facility] [...] valid in the following situations: - | | | Patients under 18 years of [...] | + + + + + | [facility] | [address] | [place] [address] | | | [place] | [address] | | | + + + + + CARDIOLOGY (07/31/2019 12:00 AM PDT) + + + | Narrative | Performed At | + + + | | | + + + CAPILLARY BLOOD GLUCOSE (NO CHG), POC (07/30/2019 9:58 PM PDT) + +---------+ + + + | Component | Value | Ref Range | Performed | Pathologist | | | | | At | Signature | + +---------+ + + + | BLOOD | 194 (H) | 70 - 99 mg/dL | [facility] | | | GLUCOSE, | | | [facility] | | | POC | | | [facility] | | | | | | OF CARE | | | | | | TESTS | | + +---------+ + + + + + | Specimen | + + | Blood | + + + + + + + | Performing | Address | City/State/Zipcode | Phone Number | | Organization | | | | + + + + + | [facility] | [address] | [place], [place] | | | [facility] | [address] | [address] | | | TESTS | | | | + + + + + CAPILLARY BLOOD GLUCOSE (NO CHG), POC (07/30/2019 5:02 PM PDT) + +---------+ + + + | Component | Value | Ref Range | Performed | Pathologist | | | | | At | Signature | + +---------+ + + + | BLOOD | 225 (H) | 70 - 99 mg/dL | [facility] - | | | GLUCOSE, | | | [facility] | | | POC | | | [facility] | | | | | | OF CARE | | | | | | TESTS | | + +---------+ + + + + + | Specimen | + + | Blood | + + + + + + + | Performing | Address | City/State/Zipcode | Phone Number | | Organization | | | | + + + + + | [facility] | [address] | [place], [place] | | | [facility] | [facility] | [address] | | | TESTS | | | | + + + + + CAPILLARY BLOOD GLUCOSE (NO CHG), POC (07/30/2019 12:08 PM PDT) + +---------+ + + + | Component | Value | Ref Range | Performed | Pathologist | | | | | At | Signature | + +---------+ + + + | BLOOD | 233 (H) | 70 - 99 mg/dL | [facility] - | | | GLUCOSE, | | | [facility] | | | POC | | | [facility] | | | | | | OF CARE | | | | | | TESTS | | + +---------+ + + + + + | Specimen | + + | Blood | + + + + + + + | Performing | Address | City/State/Zipcode | Phone Number | | Organization | | | | + + + + + | [facility] | [address] | [place], [place] | | | [facility] OF [facility] | [address] | [address] | | | TESTS | | | | + + + + + PRODUCT - RED CELLS LEUKOREDUCED (07/30/2019 10:53 AM PDT) + + + + + + | Component | Value | Ref Range | Performed | Pathologist | | | | | At | Signature | + + + + + + | PRODUCT | -1 RED BLOOD CELLS | | [facility] | | | DESCRIPTION | LEUKOREDUCED | | LABORATORY | | | | | | SERVICES, | | | | | | TRANSFUSION | | | | | | MEDICINE | | + + + + + + | PRODUCT | [id number] | | [facility] | | | UNIT # | | | LABORATORY | | | | | | SERVICES, | | | | | | TRANSFUSION | | | | | | MEDICINE | | + + + + + + | UNIT ABO | A | | [facility] | | | | | | LABORATORY | | | | | | SERVICES, | | | | | | TRANSFUSION | | | | | | MEDICINE | | + + + + + + | UNIT RH | POS | | [facility] | | | | | | LABORATORY | | | | | | SERVICES, | | | | | | TRANSFUSION | | | | | | MEDICINE | | + + + + + + | STATUS OF | Presumed Transfused | | [facility] | | | UNIT | | | LABORATORY | | | | | | SERVICES, | | | | | | TRANSFUSION | | | | | | MEDICINE | | + + + + + + | EXPIRATION | [id number] | | [facility] | | | DATE | | | LABORATORY | | | | | | SERVICES, | | | | | | TRANSFUSION | | | | | | MEDICINE | | + + + + + + | BLOOD TYPE | [id number] | | [facility] | | | BARCODE | | | LABORATORY | | | | | | SERVICES, | | | | | | TRANSFUSION | | | | | | MEDICINE | | + + + + + + | BLOOD | [id number] | | [facility] | | | PRODUCT | | | LABORATORY | | | CODE | | | SERVICES, | | | | | | TRANSFUSION | | | | | | MEDICINE | | + + + + + + + + | Specimen | + + | | + + + + + + + | Performing | Address | City/State/Zipcode | Phone Number | | Organization | | | | + + + + + | [facility] | [address] | [place] [address] | | | SERVICES, | [address] | | | | TRANSFUSION MEDICINE | | | | + + + + + CAPILLARY BLOOD GLUCOSE (NO CHG), POC (07/30/2019 8:30 AM PDT) + +---------+ + + + | Component | Value | Ref Range | Performed | Pathologist | | | | | At | Signature | + +---------+ + + + | BLOOD | 218 (H) | 70 - 99 mg/dL | [facility] - | | | GLUCOSE, | | | [facility] | | | POC | | | [facility] | | | | | | OF CARE | | | | | | TESTS | | + +---------+ + + + + + | Specimen | + + | Blood | + + + + + + + | Performing | Address | City/State/Zipcode | Phone Number | | Organization | | | | + + + + + | [facility] | [address] | [place], [place] | | | [facility] OF [facility] | [address] | [address] | | | TESTS | | | | + + + + + MAK ADD ON (07/30/2019 5:23 AM PDT) + + + + + + | Component | Value | Ref Range | Performed | Pathologist | | | | | At | Signature | + + + + + + | NEUTROPHIL | 66.4 | 50.0 - 70.0 % | [facility] | | | % | | | LABORATORY | | | | | | SERVICES, | | | | | | CORE | | + + + + + + | LYMPHOCYTE | 21.7 | 18.0 - 42.0 % | [facility] | | | % | | | LABORATORY | | | | | | SERVICES, | | | | | | CORE | | + + + + + + | MONOCYTE % | 8.5 | 3.5 - 9.0 % | [facility] | | | | | | LABORATORY | | | | | | SERVICES, | | | | | | CORE | | + + + + + + | EOS % | 2.7 | 1.0 - 3.0 % | [facility] [...] + + + + | IG% | 0.2 | 0.0 - 1.0 % | [facility] | | | | | | LABORATORY | | | | | | SERVICES, | | | | | | CORE | | + + + + + + | NEUTROPHIL | 2.66 | 1.80 - 7.70 | [facility] | | | # | | K/cu mm | LABORATORY | | | | | | SERVICES, | | | | | | CORE | | + + + + + + | LYMPHOCYTE | 0.87 (L) | 1.00 - 4.80 | [facility] | | | # | | K/cu mm | LABORATORY | | | | | | SERVICES, | | | | | | CORE | | + + + + + + | MONOCYTE # | 0.34 | 0.10 - 0.90 | [facility] | | | | | K/cu mm | LABORATORY | | | | | | SERVICES, | | | | | | CORE | | + + + + + + | EOS # | 0.11 | 0.00 - 0.50 | [facility] | [...] + | [facility] | [address] | [place] [address] | | | SERVICES, CORE | [address] | | | + + + + + CBC (HEMOGRAM) ONLY (07/30/2019 5:23 AM PDT) + + + + + + | Component | Value | Ref Range | Performed | Pathologist | | | | | At | Signature | + + + + + + | WHITE CELL | 3.94 | 3.50 - 10.80 | [facility] | | | COUNT | | K/cu mm | LABORATORY | | | | | | SERVICES, | | | | | | CORE | | + + + + + + | RED CELL | 1.98 (L) | 4.50 - 6.00 | [facility] | | | COUNT | | M/cu mm | LABORATORY | | | | | | SERVICES, | | | | | | CORE | | + + + + + + | HEMOGLOBIN | 6.8 (L) | 13.5 - 17.5 | [facility] | | | | | g/dL | LABORATORY | | | | | | SERVICES, | | | | | | CORE | | + + + + + + | HEMATOCRIT | 19.9 (L) | 41.0 - 53.0 % | [facility] | | | | | | LABORATORY | | | | | | SERVICES, | | | | | | CORE | | + + + + + + | MCV | 100.5 (H) | 80.0 - 100.0 fL | [facility] | | | | | | LABORATORY | | | | | | SERVICES, | | | | | | CORE | | + + + + + + | MCHC | 34.2 | 32.0 - 36.0 | [facility] | | | | | g/dL | LABORATORY | | | | | | SERVICES, | | | | | | CORE | | + + + + + + | RDW SD | 61.6 (H) | 35.1 - 46.3 fL | [facility] | | | | | | LABORATORY | | | | | | SERVICES, | | | | | | CORE | | + + + + + + | PLATELET | 27 (L) | 150 - 400 K/cu | [facility] | | | COUNT | | mm | LABORATORY | | | | | | SERVICES, | | | | | | CORE | | + + + + + + | MPV | 10.8 | 9.7 - 12.3 fL | [facility] | | | | | | LABORATORY | | | | | | SERVICES, | | | | | | CORE | | + + + + + + | NRBC% | 1.0 (H) | 0.0 - 0.3 % | [facility] | | | | | | LABORATORY | | | | | | SERVICES, | | | | | | CORE | | + + + + + + | NRBC# | 0.04 (H) | 0.00 - 0.02 | [facility] | [...] + | [facility] | [address] | [place] [address] | | | SERVICES, CORE | [address] | | | + + + + + COAGULOPATHY PANEL (INR,APTT,FIBRINOGEN) (07/30/2019 5:23 AM PDT) + + + + + + | Component | Value | Ref Range | Performed | Pathologist | | | | | At | Signature | + + + + + + | INR | 3.50 (H) | 0.90 - 1.20 INR | [facility] | | | | | | LABORATORY | | | | | | SERVICES, | | | | | | CORE | | + + + + + + | APTT | 74.0 (H) | 26.0 - 36.0 | [facility] | | | | | seconds | LABORATORY | | | | | | SERVICES, | | | | | | CORE | | + + + + + + | FIBRINOGEN | 114 (L) | 150 - 450 mg/dL | [facility] | | | LEVEL | | | LABORATORY | | | [...] with mech. valves (2.5 - 3.5) INR APTT values for | SERVICES, CORE | | monitoring heparin therapy may be affected by specimens processed >1 | | | hour after collection. APTT Therapeutic Range: | | | (75 - 120) sec Heparin levels of 0.35 - 0.7 U/mL | | + + + + + + + + | Performing | Address | City/State/Zipcode | Phone Number | | Organization | | | | + + + + + | [facility] | [address] | [place] [address] | | | SERVICES, CORE | [address] | | | + + + + + COMPLETE METABOLIC SET (NA,K,CL,CO2,BUN,CREAT,GLUC,CA,AST,ALT,BILI TOTAL,ALK PHOS,ALB,PROT TOTAL) (07/30/2019 5:23 AM PDT) + + + + + + | Component | Value | Ref Range | Performed | Pathologist | | | | | At | Signature | + + + + + + | GLUCOSE, | 222 (H) | 70 - 99 mg/dL | [facility] | | | PLASMA | | | LABORATORY | | | (LAB) | | | SERVICES, | | | | | | CORE | | + + + + + + | BUN, PLASMA | 39 (H) | 6 - 20 mg/dL | [facility] | | | (LAB) | | | LABORATORY | | | | | | SERVICES, | | | | | | CORE | | + + + + + + | CREATININE | 1.05 | 0.70 - 1.30 | [facility] | | | PLASMA | | mg/dL | LABORATORY | | | (LAB) | | | SERVICES, | | | | | | CORE | | + + + + + + | EGFR | >60 | >60 mL/min | [facility] | | | - | | | LABORATORY | | | TURKISH | | | SERVICES, | | | | | | CORE | | + + + + + + | EGFR NON | >60 | >60 mL/min | [facility] | | | -JARRED | | | LABORATORY | | | RICAN | | | SERVICES, | | | | | | CORE | | + + + + + + | SODIUM, | 131 (L) | 136 - 145 | [facility] [...] + + + + | CHLORIDE, | 104 | 97 - 108 mmol/L | [facility] | | | PLASMA | | | LABORATORY | | | (LAB) | | | SERVICES, | | | | | | CORE | | + + + + + + | TOTAL CO2, | 19 (L) | 21 - 32 mmol/L | [facility] | | | PLASMA | | | LABORATORY | | | (LAB) | | | SERVICES, | | | | | | CORE | | + + + + + + | CALCIUM, | 8.7 | 8.6 - 10.2 | [facility] | [...] + + + + | BILIRUBIN | 10.5 (H) | 0.3 - 1.2 mg/dL | [facility] | | | TOTAL | | | LABORATORY | | | | | | SERVICES, | | | | | | CORE | | + + + + + + | TOTAL | 6.3 (L) | 6.4 - 8.2 g/dL | [facility] | | | PROTEIN, | | | LABORATORY | | | PLASMA | | | SERVICES, | | | (LAB) | | | CORE | | + + + + + + | ALBUMIN, | 2.9 (L) | 3.5 - 4.7 g/dL | [facility] | | | PLASMA | | | LABORATORY | | | (LAB) | | | SERVICES, | | | | | | CORE | | + + + + + + | ALK PHOS | 123 | 53 - 128 U/L | [facility] | | | | | | LABORATORY | | | | | | SERVICES, | | | | | | CORE | | + + + + + + | AST(SGOT) | 68 (H) | <=41 U/L | [facility] | | | | | | LABORATORY | | | | | | SERVICES, | | | | | | CORE | | + + + + + + | ALT (SGPT) | 39 | <=60 U/L | [facility] | | | | | | LABORATORY | | | | | | SERVICES, | | | | | | CORE | | + + + + + + | ANION GAP | 8 | 4 - 11 mmol/L | [facility] | | | | | | LABORATORY | | | | | | SERVICES, | | | | | | CORE | | + + + + + + | ANION | 10 | 4 - 11 mmol/L | [facility] [...] MDRD equation recommended by the National | [facility] | | Kidney Disease Education Program. Estimated GFR Interpretive | LABORATORY | | Information: <60 mL/min/1.73 sq m Chronic Kidney | SERVICES, [facility] | | Disease <15 mL/min/1.73 sq m Kidney Failure | | | Estimated GFR greater than 60 mL/min/1.73 sq m is of limited clinical | | | value. The MDRD equation is not valid in the following situations: - | | | Patients under 18 years of [...] | + + + + + | [facility] | [address] | [place] [address] | | | CLAUDIA, ARTIS | [address] | | | + + + + + CARDIOLOGY (07/30/2019 12:00 AM PDT) + + + | Narrative | Performed At | + + + | | | + + + CAPILLARY BLOOD GLUCOSE (NO CHG), POC (07/29/2019 9:14 PM PDT) + +---------+ + + + | Component | Value | Ref Range | Performed | Pathologist | | | | | At | Signature | + +---------+ + + + | BLOOD | 223 (H) | 70 - 99 mg/dL | [facility] - | | | GLUCOSE, | | | [facility] | | | POC | | | [facility] | | | | | | OF CARE | | | | | | TESTS | | + +---------+ + + + + + | Specimen | + + | Blood | + + + + + + + | Performing | Address | City/State/Zipcode | Phone Number | | Organization | | | | + + + + + | [facility] | [address] | [place], [place] | | | [facility] [place] | [address] | [address] | | | TESTS | | | | + + + + + CAPILLARY BLOOD GLUCOSE (NO CHG), POC (07/29/2019 6:25 PM PDT) + +---------+ + + + | Component | Value | Ref Range | Performed | Pathologist | | | | | At | Signature | + +---------+ + + + | BLOOD | 251 (H) | 70 - 99 mg/dL | [facility] - | | | GLUCOSE, | | | [facility] | | | POC | | | [facility] | | | | | | OF CARE | | | | | | TESTS | | + +---------+ + + + + + | Specimen | + + | Blood | + + + + + + + | Performing | Address | City/State/Zipcode | Phone Number | | Organization | | | | + + + + + | [facility] | [address] | [place], [place] | | | [facility] CARE | [facility] | [address] | | | TESTS | | | | + + + + + OSMOLALITY, URINE SPOT (07/29/2019 3:11 PM PDT) + +-------+ + + + | Component | Value | Ref Range | Performed | Pathologist | | | | | At | Signature | + +-------+ + + + | OSMOLALITY | 347 | mOsm/kg | [facility] | | | URINE | | | LABORATORY | | | | | | SERVICES, | | | | | | CORE | | + +-------+ + + + + + | Specimen | + + | Urine - Urine | | (substance) | + + + + + | Narrative | Performed At | + + + | Reference Ranges: Random Urine: | [facility] | | 50-1200 mOsm/kg 24 Hr., average fluid intake: 300-900 mOsm/kg | LABORATORY | | After 12 Hr. fluid restriction: >850 mOsm/kg | SERVICES, CORE | + + + + + + + + | Performing | Address | City/State/Zipcode | Phone Number | | Organization | | | | + + + + + | [facility] | [address] | [place] [address] | | | SERVICES, CORE | [address] | | | + + + + + MAUDE TINSLEY ONLY (07/29/2019 3:11 PM PDT) + + + + + + | Component | Value | Ref Range | Performed | Pathologist | | | | | At | Signature | + + + + + + | COLOR(UR) | Red | | [facility] | | | | | | LABORATORY | | | | | | SERVICES, | | | | | | CORE | | + + + + + + | APPEARANCE | Clear | | [facility] | | | | | | LABORATORY | | | | | | SERVICES, | | | | | | CORE | | + + + + + + | GLUCOSE(UR) | 50.0 | Negative, 50.0 | [facility] | | | | | mg/dL | LABORATORY | | | | | | SERVICES, | | | | | | CORE | | + + + + + + | PROTEIN(LAB | Negative | Negative, 30.0 | [facility] | | | ) | | mg/dL | LABORATORY | | | | | | SERVICES, | | | | | | CORE | | + + + + + + | BILIRUBIN | Negative | Negative | [facility] | | | | | | LABORATORY | | | | | | SERVICES, | | | | | | CORE | | + + + + + + | UROBILINOGE | <2.0 | <2.0 mg/dL | [facility] | | | N | | | LABORATORY | | | | | | SERVICES, | | | | | | CORE | | + + + + + + | PH(UR) | 5.0 | 5.0 - 8.0 | [facility] | | | | | | LABORATORY | | | | | | SERVICES, | | | | | | CORE | | + + + + + + | BLOOD | Large (A) | Negative | [facility] | | | | | | LABORATORY | | | | | | SERVICES, | | | | | | CORE | | + + + + + + | KETONES | Negative | Negative mg/dL | [facility] | | | | | | LABORATORY | | | | | | SERVICES, | | | | | | CORE | | + + + + + + | NITRITES | Negative | Negative | [facility] | | | | | | LABORATORY | | | | | | SERVICES, | | | | | | CORE | | + + + + + + | LEUKOCYTE | Negative | Negative | [facility] | | | ESTERASE | | | LABORATORY | | | | | | SERVICES, | | | | | | CORE | | + + + + + + | SPECIFIC | 1.014Comment: Specific | 1.005 - 1.030 | [facility] | | | GRAVITY | Spooner performed by | | LABORATORY | | | | refractometry | | SERVICES, | | | | | | CORE | | + + + + + + + + | Specimen | + + | Urine - Urinary | | bladder structure | | (body structure) | + + + + + + + | Performing | Address | City/State/Zipcode | Phone Number | | Organization | | | | + + + + + | [facility] | [address] | [place] [address] | | | SERVICES, ARTIS | [address] | | | + + + + + URINE, MICROSCOPIC EXAM (07/29/2019 3:11 PM PDT) + +-------+ + + + | Component | Value | Ref Range | Performed | Pathologist | | | | | At | Signature | + +-------+ + + + | RED CELLS | 5 (H) | 0 - 3 /hpf | [facility] | | | | | | LABORATORY | | | | | | SERVICES, | | | | | | CORE | | + +-------+ + + + | WHITE CELLS | 1 | 0 - 5 /hpf | [facility] | | | | | | LABORATORY | | | | | | SERVICES, | | | | | | CORE | | + +-------+ + + + | BACTERIA | None | None /hpf | [facility] | | | | | | LABORATORY | | | | | | SERVICES, | | | | | | CORE | | + +-------+ + + + | YEAST (LAB) | None | None /hpf | [facility] | | | | | | LABORATORY | | | | | | SERVICES, | | | | | | CORE | | + +-------+ + + + | SQUAMOUS | None | None, Few /hpf | [facility] | | | EPITHELIAL | | | LABORATORY | | | | | | SERVICES, | | | | | | CORE | | + +-------+ + + + | MUCOUS | None | None, Few /hpf | [facility] | | | | | | LABORATORY | | | | | | SERVICES, | | | | | | CORE | | + +-------+ + + + | NON-SQUAMOU | None | None /hpf | [facility] | | | S EPITH | | | LABORATORY | | | | | | SERVICES, | | | | | | CORE | | + +-------+ + + + | HYALINE | 0 | 0 - 2 /lpf | [facility] | | | CASTS | | | LABORATORY | | | | | | SERVICES, | | | | | | CORE | | + +-------+ + + + | GRANULAR | 0 | 0 - 2 /lpf | [facility] | | | [facility]STS | | | LABORATORY | | | | | | SERVICES, | | | | | | CORE | | + +-------+ + + + | CELLULAR | 0 | <=0 /lpf | [facility] | | | CASTS | | | LABORATORY | | | | | | SERVICES, | | | | | | CORE | | + +-------+ + + + | TRIPLE P04 | None | None, Few /hpf | [facility] | | | CRYSTALS | | | LABORATORY | | | | | | SERVICES, | | | | | | CORE | | + +-------+ + + + | CALCIUM | None | None, Few /hpf | [facility] | | | OXALATE | | | LABORATORY | | | RAMÓN | | | SERVICES, | | | | | | CORE | | + +-------+ + + + | URIC ACID | None | None, Few /hpf | [facility] | | | [facility] | | | LABORATORY | | | | | | SERVICES, | | | | | | CORE | | + +-------+ + + + | AMORPHOUS | None | None, Few /hpf | [facility] | | | [facility] | | | LABORATORY | | | | | | SERVICES, | | | | | | CORE | | + +-------+ + + + + + | Specimen | + + | Urine - Urinary | | bladder structure | | (body structure) | + + + + + + + | Performing | Address | City/State/Zipcode | Phone Number | | Organization | | | | + + + + + | [facility] | [address] | [place] [address] | | | SERVICES, CORE | [address] | | | + + + + + CHLORIDE, URINE (07/29/2019 3:11 PM PDT) + +--------+ + + + | Component | Value | Ref Range | Performed | Pathologist | | | | | At | Signature | + +--------+ + + + | CHLORIDE | 11 | mmol/L | [facility] | | | CONC URINE | | | LABORATORY | | | | | | SERVICES, | | | | | | CORE | | + +--------+ + + + | URINE | Random | | [facility] | | | INTERVAL | | | LABORATORY | | | | | | SERVICES, | | | | | | CORE | | + +--------+ + + + | URINE | Spot | | [facility] | | | VOLUME | | | LABORATORY | | | | | | SERVICES, | | | | | | CORE | | + +--------+ + + + + + | Specimen | + + | Urine - Urine | | (substance) | + + + + + | Narrative | Performed At | + + + | Reference range based on 24 hour collection time. Patient results | [facility] | | are calculated from actual collection time. | LABORATORY | | | SERVICES, [place] | + + + + + + + + | Performing | Address | City/State/Zipcode | Phone Number | | Organization | | | | + + + + + | [facility] | [address] | [place] [address] | | | [place] | [address] | | | + + + + + POTASSIUM TOTAL, URINE (07/29/2019 3:11 PM PDT) + +--------+ + + + | Component | Value | Ref Range | Performed | Pathologist | | | | | At | Signature | + +--------+ + + + | POTASSIUM | 20 | mmol/L | [facility] | | | CONC UR | | | LABORATORY | | | | | | SERVICES, | | | | | | CORE | | + +--------+ + + + | URINE | Random | | [facility] | | | INTERVAL | | | LABORATORY | | | | | | SERVICES, | | | | | | CORE | | + +--------+ + + + | URINE | Spot | | [facility] | | | VOLUME | | | LABORATORY | | | | | | SERVICES, | | | | | | CORE | | + +--------+ + + + + + | Specimen | + + | Urine - Urine | | (substance) | + + + + + | Narrative | Performed At | + + + | Reference range based on 24 hour collection time. Patient results | [facility] | | are calculated from actual collection time. | LABORATORY | | | SERVICES, CORE | + + + + + + + + | Performing | Address | City/State/Zipcode | Phone Number | | Organization | | | | + + + + + | [facility] | [address] | [place] [address] | | | SERVICES, CORE | [address] | | | + + + + + SODIUM TOTAL, URINE (07/29/2019 3:11 PM PDT) + +--------+ + + + | Component | Value | Ref Range | Performed | Pathologist | | | | | At | Signature | + +--------+ + + + | SODIUM CONC | 7 | mmol/L | [facility] | | | URINE | | | LABORATORY | | | | | | SERVICES, | | | | | | CORE | | + +--------+ + + + | URINE | Random | | [facility] | | | INTERVAL | | | LABORATORY | | | | | | SERVICES, | | | | | | CORE | | + +--------+ + + + | URINE | Spot | | [facility] | | | VOLUME | | | LABORATORY | | | | | | SERVICES, | | | | | | CORE | | + +--------+ + + + + + | Specimen | + + | Urine - Urine | | (substance) | + + + + + | Narrative | Performed At | + + + | Reference range based on 24 hour collection time. Patient results | [facility] | | are calculated from actual collection time. | LABORATORY | | | SERVICES, CORE | + + + + + + + + | Performing | Address | City/State/Zipcode | Phone Number | | Organization | | | | + + + + + | [facility] | [address] | [place] [address] | | | SERVICES, CORE | [address] | | | + + + + + CAPILLARY BLOOD GLUCOSE (NO CHG), POC (07/29/2019 12:29 PM PDT) + +---------+ + + + | Component | Value | Ref Range | Performed | Pathologist | | | | | At | Signature | + +---------+ + + + | BLOOD | 265 (H) | 70 - 99 mg/dL | [facility] | | | GLUCOSE, | | | [facility] | | | POC | | | [facility] | | | | | | OF CARE | | | | | | TESTS | | + +---------+ + + + + + | Specimen | + + | Blood | + + + + + + + | Performing | Address | City/State/Zipcode | Phone Number | | Organization | | | | + + + + + | [facility] | [address] | [place], [place] | | | [facility] | [address] | [address] | | | TESTS | | | | + + + + + OSMOLALITY, PLASMA (07/29/2019 10:23 AM PDT) + +---------+ + + + | Component | Value | Ref Range | Performed | Pathologist | | | | | At | Signature | + +---------+ + + + | OSMOLALITY, | 307 (H) | 275 - 295 | [facility] | | | MEASURED | | mOsm/kg | LABORATORY | | | | | [...] + | [facility] | [address] | [place] [address] | | | SERVICES, [facility] | [address] | | | + + + + + CAPILLARY BLOOD GLUCOSE (NO CHG), POC (07/29/2019 9:24 AM PDT) + +---------+ + + + | Component | Value | Ref Range | Performed | Pathologist | | | | | At | Signature | + +---------+ + + + | BLOOD | 229 (H) | 70 - 99 mg/dL | [facility] - | | | GLUCOSE, | | | [facility] | | | POC | | | [facility] | | | | | | OF CARE | | | | | | TESTS | | + +---------+ + + + + + | Specimen | + + | Blood | + + + + + + + | Performing | Address | City/State/Zipcode | Phone Number | | Organization | | | | + + + + + | [facility] | [address] | [place], [place] | | | [facility] | [address] | [address] | | | TESTS | | | | + + + + + CBC (HEMOGRAM) ONLY (07/29/2019 5:37 AM PDT) + + + + + + | Component | Value | Ref Range | Performed | Pathologist | | | | | At | Signature | + + + + + + | WHITE CELL | 5.54 | 3.50 - 10.80 | [facility] | | | COUNT | | K/cu mm | LABORATORY | | | | | | SERVICES, | | | | | | CORE | | + + + + + + | RED CELL | 2.33 (L) | 4.50 - 6.00 | [facility] | | | COUNT | | M/cu mm | LABORATORY | | | | | | SERVICES, | | | | | | CORE | | + + + + + + | HEMOGLOBIN | 8.0 (L) | 13.5 - 17.5 | [facility] | | | | | g/dL | LABORATORY | | | | | | SERVICES, | | | | | | CORE | | + + + + + + | HEMATOCRIT | 23.9 (L) | 41.0 - 53.0 % | [facility] | | | | | | LABORATORY | | | | | | SERVICES, | | | | | | CORE | | + + + + + + | MCV | 102.6 (H) | 80.0 - 100.0 fL | [facility] | | | | | | LABORATORY | | | | | | SERVICES, | | | | | | CORE | | + + + + + + | MCHC | 33.5 | 32.0 - 36.0 | [facility] | | | | | g/dL | LABORATORY | | | | | | SERVICES, | | | | | | CORE | | + + + + + + | RDW SD | 65.5 (H) | 35.1 - 46.3 fL | [facility] | | | | | | LABORATORY | | | | | | SERVICES, | | | | | | CORE | | + + + + + + | PLATELET | 28 (L) | 150 - 400 K/cu | [facility] | | | COUNT | | mm | LABORATORY | | | | | | SERVICES, | | | | | | CORE | | + + + + + + | MPV | 10.1 | 9.7 - 12.3 fL | [facility] [...] + | [facility] | [address] | [place] [address] | | | SERVICES, CORE | [address] | | | + + + + + COAGULOPATHY PANEL (INR,APTT,FIBRINOGEN) (07/29/2019 5:37 AM PDT) + + + + + + | Component | Value | Ref Range | Performed | Pathologist | | | | | At | Signature | + + + + + + | INR | 3.54 (H) | 0.90 - 1.20 INR | [facility] | | | | | | LABORATORY | | | | | | SERVICES, | | | | | | CORE | | + + + + + + | APTT | 70.5 (H) | 26.0 - 36.0 | [facility] | | | | | seconds | LABORATORY | | | | | | SERVICES, | | | | | | CORE | | + + + + + + | FIBRINOGEN | 121 (L) | 150 - 450 mg/dL | [facility] | | | LEVEL | | | LABORATORY | | | [...] with mech. valves (2.5 - 3.5) INR APTT values for | SERVICES, CORE | | monitoring heparin therapy may be affected by specimens processed >1 | | | hour after collection. APTT Therapeutic Range: | | | (75 - 120) sec Heparin levels of 0.35 - 0.7 U/mL | | + + + + + + + + | Performing | Address | City/State/Zipcode | Phone Number | | Organization | | | | + + + + + | [facility] | [address] | [place] [address] | | | SERVICES, CORE | [address] | | | + + + + + COMPLETE METABOLIC SET (NA,K,CL,CO2,BUN,CREAT,GLUC,CA,AST,ALT,BILI TOTAL,ALK PHOS,ALB,PROT TOTAL) (07/29/2019 5:37 AM PDT) + + + + + + | Component | Value | Ref Range | Performed | Pathologist | | | | | At | Signature | + + + + + + | GLUCOSE, | 210 (H) | 70 - 99 mg/dL | [facility] | | | PLASMA | | | LABORATORY | | | (LAB) | | | SERVICES, | | | | | | CORE | | + + + + + + | BUN, PLASMA | 37 (H) | 6 - 20 mg/dL | [facility] | | | (LAB) | | | LABORATORY | | | | | | SERVICES, | | | | | | CORE | | + + + + + + | CREATININE | 1.04 | 0.70 - 1.30 | [facility] | | | PLASMA | | mg/dL | LABORATORY | | | (LAB) | | | SERVICES, | | | | | | CORE | | + + + + + + | EGFR | >60 | >60 mL/min | [facility] | | | - | | | LABORATORY | | | [facility] | | | SERVICES, | | | | | | CORE | | + + + + + + | EGFR NON | >60 | >60 mL/min | [facility] | | | -JARRED | | | LABORATORY | | | [...] + + | POTASSIUM, | 4.6 | 3.4 - 5.0 | [facility] | | | PLASMA | | mmol/L | LABORATORY | | | (LAB) | | | SERVICES, | | | | | | CORE | | + + + + + + | CHLORIDE, | 107 | 97 - 108 mmol/L | [facility] | | | PLASMA | | | LABORATORY | | | (LAB) | | | SERVICES, | | | | | | CORE | | + + + + + + | TOTAL CO2, | 17 (L) | 21 - 32 mmol/L | [facility] | | | PLASMA | | | LABORATORY | | | (LAB) | | | SERVICES, | | | | | | CORE | | + + + + + + | CALCIUM, | 8.8 | 8.6 - 10.2 | [...] + + + + | BILIRUBIN | 12.8 (H) | 0.3 - 1.2 mg/dL | [facility] | | | TOTAL | | | LABORATORY | | | | | | SERVICES, | | | | | | CORE | | + + + + + + | TOTAL | 7.0 | 6.4 - 8.2 g/dL | [facility] | | | PROTEIN, | | | LABORATORY | | | PLASMA | | | SERVICES, | | | (LAB) | | | CORE | | + + + + + + | ALBUMIN, | 3.2 (L) | 3.5 - 4.7 g/dL | [facility] | | | PLASMA | | | LABORATORY | | | (LAB) | | | SERVICES, | | | | | | CORE | | + + + + + + | ALK PHOS | 119 | 53 - 128 U/L | [facility] | | | | | | LABORATORY | | | | | | SERVICES, | | | | | | CORE | | + + + + + + | AST(SGOT) | 85 (H) | <=41 U/L | [facility] | | | | | | LABORATORY | | | | | | SERVICES, | | | | | | CORE | | + + + + + + | ALT (SGPT) | 44 | <=60 U/L | [facility] | | | | | | LABORATORY | | | | | | SERVICES, | | | | | | CORE | | + + + + + + | ANION GAP | 10 | 4 - 11 mmol/L | [facility] | | | | | | LABORATORY | | | | | | SERVICES, | | | | | | CORE | | + + + + + + | ANION | 12 (H) | 4 - 11 mmol/L | [facility] | | | GAP(ALB | | | LABORATORY | | | CORRECTED) | | | SERVICES, | | | | | | CORE | | + + + + + + | POTASSIUM | Sl Hemo | | [facility] | | | CMNT | | | LABORATORY | | | | | | SERVICES, | | | | | | CORE | | + + + + + + | AST CMNT | Sl Hemo | | [facility] | | | | | | LABORATORY | | | | | | SERVICES, | | | | | | CORE | | + + + + + + + + | Specimen | + + | Blood - Blood | | (substance) | + + + + + | Narrative | Performed At | + + + | Sample hemolyzed. Results for LD, K, and AST may be inaccurate. | [facility] | | Refer to comment under test. GFR is estimated using the MDRD | LABORATORY | | equation recommended by the National Kidney Disease Education Program. | SERVICES, CORE | | Estimated GFR Interpretive Information: <60 mL/min/1.73 sq m | | | Chronic Kidney Disease <15 mL/min/1.73 sq m | | | Kidney Failure Estimated GFR greater than 60 mL/min/1.73 | | | sq m is of limited clinical value. The MDRD equation is not valid in | | | the following situations: - Patients under 18 years of age - Severe | | | malnutrition or obesity - Vegetarian diet - Rapidly changing kidney | | | function - Amputees, paraplegics, or other muscle-wasting diseases | | + + + + + + + + | Performing | Address | City/State/Zipcode | Phone Number | | Organization | | | | + + + + + | [facility] | [address] | [place] [address] | | | SERVICES, ART[facility] | [address] | | | + + + + + CAPILLARY BLOOD GLUCOSE (NO CHG), POC (07/29/2019 12:50 AM PDT) + +---------+ + + + | Component | Value | Ref Range | Performed | Pathologist | | | | | At | Signature | + +---------+ + + + | BLOOD | 199 (H) | 70 - 99 mg/dL | [facility] - | | | GLUCOSE, | | | [facility] | | | POC | | | [facility] | | | | | | OF CARE | | | | | | TESTS | | + +---------+ + + + + + | Specimen | + + | Blood | + + + + + + + | Performing | Address | City/State/Zipcode | Phone Number | | Organization | | | | + + + + + | [facility] | [address] | [place] | | | [facility] | [address] | [address] | | | TESTS | | | | + + + + + CARDIOLOGY (07/29/2019 12:00 AM PDT) + + + | Narrative | Performed At | + + + | | | + + + CAPILLARY BLOOD GLUCOSE (NO CHG), POC (07/28/2019 11:54 PM PDT) + +---------+ + + + | Component | Value | Ref Range | Performed | Pathologist | | | | | At | Signature | + +---------+ + + + | BLOOD | 206 (H) | 70 - 99 mg/dL | [facility] - | | | GLUCOSE, | | | [facility] | | | POC | | | [facility] | | | | | | OF CARE | | | | | | TESTS | | + +---------+ + + + + + | Specimen | + + | Blood | + + + + + + + | Performing | Address | City/State/Zipcode | Phone Number | | Organization | | | | + + + + + | [facility] | [address] | [place], [place] | | | [facility] | [address] | [address] | | | TESTS | | | | + + + + + DIFFERENTIAL, ADD ON (07/28/2019 10:50 PM PDT) + + + + + + | Component | Value | Ref Range | Performed | Pathologist | | | | | At | Signature | + + + + + + | NEUTROPHIL | 72.5 (H) | 50.0 - 70.0 % | [...] + + + | MONOCYTE % | 5.8 | 3.5 - 9.0 % | [facility] | | | | | | LABORATORY | | | | | | SERVICES, | | | | | | CORE | | + + + + + + | EOS % | 1.9 | 1.0 - 3.0 % | [facility] | | | | | | LABORATORY | | | | | | SERVICES, | | | | | | CORE | | + + + + + + | BASO % | 0.3 | 0.0 - 2.0 % | [facility] | | | | | | LABORATORY | | | | | | SERVICES, | | | | | | CORE | | + + + + + + | IG% | 0.5 | 0.0 - 1.0 % | [facility] | | | | | | LABORATORY | | | | | | SERVICES, | | | | | | CORE | | + + + + + + | NEUTROPHIL | 4.24 | 1.80 - 7.70 | [facility] | | | # | | K/cu mm | LABORATORY | | | | | | SERVICES, | | | | | | CORE | | + + + + + + | LYMPHOCYTE | 1.11 | 1.00 - 4.80 | [facility] | | | # | | K/cu mm | LABORATORY | | | | | | SERVICES, | | | | | | CORE | | + + + + + + | MONOCYTE # | 0.34 | 0.10 - 0.90 | [facility] | | | | | K/cu mm | LABORATORY | | | | | | SERVICES, | | | | | | CORE | | + + + + + + | EOS # | 0.11 | 0.00 - 0.50 | [facility] | [...] | + + + + + | [facility] | [address] | [place] [address] | | | SERVICES, CORE | [address] | | | + + + + + CBC (HEMOGRAM) ONLY (07/28/2019 10:50 PM PDT) + + + + + + | Component | Value | Ref Range | Performed | Pathologist | | | | | At | Signature | + + + + + + | WHITE CELL | 5.85 | 3.50 - 10.80 | [facility] | | | COUNT | | K/cu mm | LABORATORY | | | | | | SERVICES, | | | | | | CORE | | + + + + + + | RED CELL | 2.36 (L) | 4.50 - 6.00 | [facility] | | | COUNT | | M/cu mm | LABORATORY | | | | | | SERVICES, | | | | | | CORE | | + + + + + + | HEMOGLOBIN | 8.5 (L) | 13.5 - 17.5 | [facility] | | | | | g/dL | LABORATORY | | | | | | SERVICES, | | | | | | CORE | | + + + + + + | HEMATOCRIT | 24.5 (L) | 41.0 - 53.0 % | [facility] | | | | | | LABORATORY | | | | | | SERVICES, | | | | | | CORE | | + + + + + + | MCV | 103.8 (H) | 80.0 - 100.0 fL | [facility] | | | | | | LABORATORY | | | | | | SERVICES, | | | | | | CORE | | + + + + + + | MCHC | 34.7 | 32.0 - 36.0 | [facility] | | | | | g/dL | LABORATORY | | | | | | SERVICES, | | | | | | CORE | | + + + + + + | RDW SD | 67.1 (H) | 35.1 - 46.3 fL | [facility] | | | | | | LABORATORY | | | | | | SERVICES, | | | | | | CORE | | + + + + + + | PLATELET | 31 (L) | 150 - 400 K/cu | [facility] | | | COUNT | | mm | LABORATORY | | | | | | SERVICES, | | | | | | CORE | | + + + + + + | MPV | 10.4 | 9.7 - 12.3 fL | [facility] [...] | + + + + + | [facility] | [address] | [place] [address] | | | SERVICES, ART[facility] | [address] | | | + + + + + CAPILLARY BLOOD GLUCOSE (NO CHG), POC (07/28/2019 9:06 PM PDT) + +---------+ + + + | Component | Value | Ref Range | Performed | Pathologist | | | | | At | Signature | + +---------+ + + + | BLOOD | 241 (H) | 70 - 99 mg/dL | [facility] - | | | GLUCOSE, | | | [facility] | | | POC | | | [facility] | | | | | | OF CARE | | | | | | TESTS | | + +---------+ + + + + + | Specimen | + + | Blood | + + + + + + + | Performing | Address | City/State/Zipcode | Phone Number | | Organization | | | | + + + + + | [facility] | [address] | [place], [place] | | | [facility] | [address] | [address] | | | TESTS | | | | + + + + + CAPILLARY BLOOD GLUCOSE (NO CHG), POC (07/28/2019 1:40 PM PDT) + +---------+ + + + | Component | Value | Ref Range | Performed | Pathologist | | | | | At | Signature | + +---------+ + + + | BLOOD | 190 (H) | 70 - 99 mg/dL | [facility] - | | | GLUCOSE, | | | [facility] | | | POC | | | [facility] | | | | | | OF CARE | | | | | | TESTS | | + +---------+ + + + + + | Specimen | + + | Blood | + + + + + + + | Performing | Address | City/State/Zipcode | Phone Number | | Organization | | | | + + + + + | [facility] | [address] | [place], [place] | | | [facility] | [address] | [address] | | | TESTS | | | | + + + + + BLOOD GASES, VENOUS - LAB (07/28/2019 1:29 PM PDT) + + + + + + | Component | Value | Ref Range | Performed | Pathologist | | | | | At | Signature | + + + + + + | PH VENOUS | 7.30 (L) | 7.35 - 7.45 | [facility] | | | | | | LABORATORY | | | | | | SERVICES, | | | | | | CORE | | + + + + + + | PCO2 VENOUS | 39 | 35 - 50 mmHg | [facility] | | | | | | LABORATORY | | | | | | SERVICES, | | | | | | CORE | | + + + + + + | PO2 VENOUS | 38 | 30 - 55 mmHg | [facility] | | | | | | LABORATORY | | | | | | SERVICES, | | | | | | CORE | | + + + + + + | HCO3 VENOUS | 18 (L) | 22 - 28 mmol/L | [facility] | | | | | | LABORATORY | | | | | | SERVICES, | | | | | | CORE | | + + + + + + | BASE EXCESS | -7.0 (L) | -3.0 - 3.0 | [facility] | | | VENOUS | | mmol/L | LABORATORY | | | | | | SERVICES, | | | | | | CORE | | + + + + + + | O2 SAT, | 57.9 | No range has | [facility] | | | VENOUS | | been | LABORATORY | | | | | established % | SERVICES, | | | | | | CORE | | + + + + + + | TOTAL CO2 | 20 (L) | 23 - 29 mmol/L | [facility] | | | VENOUS | | | LABORATORY | | | [...] | + + + + + | [facility] | [address] | [place] [address] | | | SERVICES, CORE | [address] | | | + + + + + CAPILLARY BLOOD GLUCOSE (NO CHG), POC (07/28/2019 9:40 AM PDT) + +---------+ + + + | Component | Value | Ref Range | Performed | Pathologist | | | | | At | Signature | + +---------+ + + + | BLOOD | 209 (H) | 70 - 99 mg/dL | [facility] - | | | GLUCOSE, | | | [facility] | | | POC | | | [facility] | | | | | | OF CARE | | | | | | TESTS | | + +---------+ + + + + + | Specimen | + + | Blood | + + + + + + + | Performing | Address | City/State/Zipcode | Phone Number | | Organization | | | | + + + + + | [facility] | [address] | [place], [place] | | | [facility] | [address] | [address] | | | TESTS | | | | + + + + + CBC (HEMOGRAM) ONLY (07/28/2019 3:38 AM PDT) + + + + + + | Component | Value | Ref Range | Performed | Pathologist | | | | | At | Signature | + + + + + + | WHITE CELL | 3.81 | 3.50 - 10.80 | [facility] | | | COUNT | | K/cu mm | LABORATORY | | | | | | SERVICES, | | | | | | CORE | | + + + + + + | RED CELL | 2.08 (L) | 4.50 - 6.00 | [facility] | | | COUNT | | M/cu mm | LABORATORY | | | | | | SERVICES, | | | | | | CORE | | + + + + + + | HEMOGLOBIN | 7.5 (L) | 13.5 - 17.5 | [facility] | | | | | g/dL | LABORATORY | | | | | | SERVICES, | | | | | | CORE | | + + + + + + | HEMATOCRIT | 21.7 (L) | 41.0 - 53.0 % | [facility] | | | | | | LABORATORY | | | | | | SERVICES, | | | | | | CORE | | + + + + + + | MCV | 104.3 (H) | 80.0 - 100.0 fL | [...] + + + | RDW SD | 66.8 (H) | 35.1 - 46.3 fL | [facility] | | | | | | LABORATORY | | | | | | SERVICES, | | | | | | CORE | | + + + + + + | PLATELET | 24 (L) | 150 - 400 K/cu | [facility] | | | COUNT | | mm | LABORATORY | | | | | | SERVICES, | | | | | | CORE | | + + + + + + | MPV | 10.3 | 9.7 - 12.3 fL | [facility] | | | | | | LABORATORY | | | | | | SERVICES, | | | | | | CORE | | + + + + + + | NRBC% | 0.8 (H) | 0.0 - 0.3 % | [facility] | | | | | | LABORATORY | | | | | | SERVICES, | | | | | | CORE | | + + + + + + | NRBC# | 0.03 (H) | 0.00 - 0.02 | [facility] | [...] | + + + + + | [facility] | [address] | [place] [address] | | | SERVICES, ARTIS | [address] | | | + + + + + COAGULOPATHY PANEL (INR,APTT,FIBRINOGEN) (07/28/2019 3:38 AM PDT) + + + + + + | Component | Value | Ref Range | Performed | Pathologist | | | | | At | Signature | + + + + + + | INR | 3.84 (H) | 0.90 - 1.20 INR | [facility] | | | | | | LABORATORY | | | | | | SERVICES, | | | | | | CORE | | + + + + + + | APTT | 74.0 (H) | 26.0 - 36.0 | [facility] | | | | | seconds | LABORATORY | | | | | | SERVICES, | | | | | | CORE | | + + + + + + | FIBRINOGEN | 107 (L) | 150 - 450 mg/dL | [facility] | | | LEVEL | | | LABORATORY | | | [...] with mech. valves (2.5 - 3.5) INR APTT values for | SERVICES, CORE | | monitoring heparin therapy may be affected by specimens processed >1 | | | hour after collection. APTT Therapeutic Range: | | | (75 - 120) sec Heparin levels of 0.35 - 0.7 U/mL | | + + + + + + + + | Performing | Address | City/State/Zipcode | Phone Number | | Organization | | | | + + + + + | [facility] | [address] | [place] [address] | | | SERVICES, CORE | [address] | | | + + + + + COMPLETE METABOLIC SET (NA,K,CL,CO2,BUN,CREAT,GLUC,CA,AST,ALT,BILI TOTAL,ALK PHOS,ALB,PROT TOTAL) (07/28/2019 3:38 AM PDT) + + + + + + | Component | Value | Ref Range | Performed | Pathologist | | | | | At | Signature | + + + + + + | GLUCOSE, | 238 (H) | 70 - 99 mg/dL | [facility] | | | PLASMA | | | LABORATORY | | | (LAB) | | | SERVICES, | | | | | | CORE | | + + + + + + | BUN, PLASMA | 37 (H) | 6 - 20 mg/dL | [facility] | | | (LAB) | | | LABORATORY | | | | | | SERVICES, | | | | | | CORE | | + + + + + + | CREATININE | 1.09 | 0.70 - 1.30 | [facility] | | | PLASMA | | mg/dL | LABORATORY | | | (LAB) | | | SERVICES, | | | | | | CORE | | + + + + + + | EGFR | >60 | >60 mL/min | [facility] | | | - | | | LABORATORY | | | [facility] | | | SERVICES, | | | | | | CORE | | + + + + + + | EGFR NON | >60 | >60 mL/min | [facility] | | | -JARRED | | | LABORATORY | | | RICAN | | | SERVICES, | | | | | | CORE | | + + + + + + | SODIUM, | 140 | 136 - 145 | [facility] | | | PLASMA | | mmol/L | LABORATORY | | | (LAB) | | | SERVICES, | | | | | | CORE | | + + + + + + | POTASSIUM, | 4.6 | 3.4 - 5.0 | [facility] | | | PLASMA | | mmol/L | LABORATORY | | | (LAB) | | | SERVICES, | | | | | | CORE | | + + + + + + | CHLORIDE, | 110 (H) | 97 - 108 mmol/L | [facility] | | | PLASMA | | | LABORATORY | | | (LAB) | | | SERVICES, | | | | | | CORE | | + + + + + + | TOTAL CO2, | 17 (L) | 21 - 32 mmol/L | [facility] [...] + + + + | BILIRUBIN | 13.6 (H) | 0.3 - 1.2 mg/dL | [...] + + + | ALBUMIN, | 3.0 (L) | 3.5 - 4.7 g/dL | [facility] | | | PLASMA | | | LABORATORY | | | (LAB) | | | SERVICES, | | | | | | CORE | | + + + + + + | ALK PHOS | 102 | 53 - 128 U/L | [facility] | | | | | | LABORATORY | | | | | | SERVICES, | | | | | | CORE | | + + + + + + | AST(SGOT) | 59 (H) | <=41 U/L | [facility] | | | | | | LABORATORY | | | | | | SERVICES, | | | | | | CORE | | + + + + + + | ALT (SGPT) | 32 | <=60 U/L | [facility] | | | | | | LABORATORY | | | | | | SERVICES, | | | | | | CORE | | + + + + + + | ANION GAP | 13 (H) | 4 - 11 mmol/L | [facility] | | | | | | LABORATORY | | | | | | SERVICES, | | | | | | CORE | | + + + + + + | ANION | 15 (H) | 4 - 11 mmol/L | [...] MDRD equation recommended by the National | [facility] | | Kidney Disease Education Program. Estimated GFR Interpretive | LABORATORY | | Information: <60 mL/min/1.73 sq m Chronic Kidney | SERVICES, CORE | | Disease <15 mL/min/1.73 sq m Kidney Failure | | | Estimated GFR greater than 60 mL/min/1.73 sq m is of limited clinical | | | value. The MDRD equation is not valid in the following situations: - | | | Patients under 18 years of [...] | + + + + + | [facility] | [address] | [place] [address] | | | SERVICES, CORE | [address] | | | + + + + + CARDIOLOGY (07/28/2019 12:00 AM PDT) + + + | Narrative | Performed At | + + + | | | + + + CARDIOLOGY (07/28/2019 12:00 AM PDT) + + + | Narrative | Performed At | + + + | | | + + + URINE, MICROSCOPIC EXAM (07/27/2019 9:35 PM PDT) + +-------+ + + + | Component | Value | Ref Range | Performed | Pathologist | | | | | At | Signature | + +-------+ + + + | RED CELLS | 5 (H) | 0 - 3 /hpf | [facility] | | | | | | LABORATORY | | | | | | SERVICES, | | | | | | CORE | | + +-------+ + + + | WHITE CELLS | 1 | 0 - 5 /hpf | [facility] | | | | | | LABORATORY | | | | | | SERVICES, | | | | | | CORE | | + +-------+ + + + | BACTERIA | None | None /hpf | [facility] | | | | | | LABORATORY | | | | | | SERVICES, | | | | | | CORE | | + +-------+ + + + | YEAST (LAB) | None | None /hpf | [facility] | | | | | | LABORATORY | | | | | | SERVICES, | | | | | | CORE | | + +-------+ + + + | SQUAMOUS | None | None, Few /hpf | [facility] | | | EPITHELIAL | | | LABORATORY | | | | | | SERVICES, | | | | | | CORE | | + +-------+ + + + | MUCOUS | None | None, Few /hpf | [facility] | | | | | | LABORATORY | | | | | | SERVICES, | | | | | | CORE | | + +-------+ + + + | NON-SQUAMOU | None | None /hpf | [facility] | | | S EPITH | | | LABORATORY | | | | | | SERVICES, | | | | | | CORE | | + +-------+ + + + | HYALINE | 0 | 0 - 2 /lpf | [facility] | | | CASTS | | | LABORATORY | | | | | | SERVICES, | | | | | | CORE | | + +-------+ + + + | GRANULAR | 0 | 0 - 2 /lpf | [facility] | | | CASTS | | | LABORATORY | | | | | | SERVICES, | | | | | | CORE | | + +-------+ + + + | CELLULAR | 0 | <=0 /lpf | [facility] | | | CASTS | | | LABORATORY | | | | | | SERVICES, | | | | | | CORE | | + +-------+ + + + | TRIPLE P04 | None | None, Few /hpf | [facility] | | | CRYSTALS | | | LABORATORY | | | | | | SERVICES, | | | | | | CORE | | + +-------+ + + + | CALCIUM | None | None, Few /hpf | [facility] | | | OXALATE | | | LABORATORY | | | RAMÓN | | | SERVICES, | | | | | | CORE | | + +-------+ + + + | URIC ACID | None | None, Few /hpf | [facility] | | | CRYSTALS | | | LABORATORY | | | | | | SERVICES, | | | | | | CORE | | + +-------+ + + + | AMORPHOUS | None | None, Few /hpf | [facility] | | | CRYSTALS | | | LABORATORY | | | | | | SERVICES, | | | | | | CORE | | + +-------+ + + + + + | Specimen | + + | Urine - Voided | + + + + + + + | Performing | Address | City/State/Zipcode | Phone Number | | Organization | | | | + + + + + | [facility] | [address] | [place] [address] | | | SERVICES, CORE | [address] | | | + + + + + CAPILLARY BLOOD GLUCOSE (NO CHG), POC (07/27/2019 9:25 PM PDT) + +---------+ + + + | Component | Value | Ref Range | Performed | Pathologist | | | | | At | Signature | + +---------+ + + + | BLOOD | 231 (H) | 70 - 99 mg/dL | [facility] - | | | GLUCOSE, | | | [facility] | | | POC | | | [facility] | | | | | | OF CARE | | | | | | TESTS | | + +---------+ + + + + + | Specimen | + + | Blood | + + + + + + + | Performing | Address | City/State/Zipcode | Phone Number | | Organization | | | | + + + + + | [facility] | [address] | [place], [place] | | | [facility] | [address] | [address] | | | TESTS | | | | + + + + + CBC (HEMOGRAM) ONLY (07/27/2019 7:53 PM PDT) + + + + + + | Component | Value | Ref Range | Performed | Pathologist | | | | | At | Signature | + + + + + + | WHITE CELL | 4.29 | 3.50 - 10.80 | [facility] | | | COUNT | | K/cu mm | LABORATORY | | | | | | SERVICES, | | | | | | CORE | | + + + + + + | RED CELL | 2.26 (L) | 4.50 - 6.00 | [facility] | | | COUNT | | M/cu mm | LABORATORY | | | | | | SERVICES, | | | | | | CORE | | + + + + + + | HEMOGLOBIN | 7.8 (L) | 13.5 - 17.5 | [facility] | | | | | g/dL | LABORATORY | | | | | | SERVICES, | | | | | | CORE | | + + + + + + | HEMATOCRIT | 23.2 (L) | 41.0 - 53.0 % | [facility] | | | | | | LABORATORY | | | | | | SERVICES, | | | | | | CORE | | + + + + + + | MCV | 102.7 (H) | 80.0 - 100.0 fL | [facility] | | | | | | LABORATORY | | | | | | SERVICES, | | | | | | CORE | | + + + + + + | MCHC | 33.6 | 32.0 - 36.0 | [facility] | | | | | g/dL | LABORATORY | | | | | | SERVICES, | | | | | | CORE | | + + + + + + | RDW SD | 62.0 (H) | 35.1 - 46.3 fL | [facility] | | | | | | LABORATORY | | | | | | SERVICES, | | | | | | CORE | | + + + + + + | PLATELET | 32 (L) | 150 - 400 K/cu | [facility] | | | COUNT | | mm | LABORATORY | | | | | | SERVICES, | | | | | | CORE | | + + + + + + | MPV | 9.7 | 9.7 - 12.3 fL | [facility] [...] Performed At | + + + | Post-transfusion CBC | [facility] | | | LABORATORY | | | SERVICES, CORE | + + + + + + + + | Performing | Address | City/State/Zipcode | Phone Number | | Organization | | | | + + + + + | [facility] | [address] | [place] [address] | | | ARTIS T[place]LOR | [address] | | | + + + + + CAPILLARY BLOOD GLUCOSE (NO CHG), POC (07/27/2019 6:33 PM PDT) + +---------+ + + + | Component | Value | Ref Range | Performed | Pathologist | | | | | At | Signature | + +---------+ + + + | BLOOD | 188 (H) | 70 - 99 mg/dL | [facility] - | | | GLUCOSE, | | | [facility] | | | POC | | | [facility] | | | | | | OF CARE | | | | | | TESTS | | + +---------+ + + + + + | Specimen | + + | Blood | + + + + + + + | Performing | Address | City/State/Zipcode | Phone Number | | Organization | | | | + + + + + | [facility] | [address] | [place], [place] | | | [facility] | [address] | [address] | | | TESTS | | | | + + + + + PRODUCT - RED CELLS LEUKOREDUCED (07/27/2019 3:35 PM PDT) + + + + + + | Component | Value | Ref Range | Performed | Pathologist | | | | | At | Signature | + + + + + + | PRODUCT | -1 RED BLOOD CELLS | | [facility] | | | DESCRIPTION | LEUKOREDUCED | | LABORATORY | | | | | | SERVICES, | | | | | | TRANSFUSION | | | | | | MEDICINE | | + + + + + + | PRODUCT | [id number] | | [facility] | | | UNIT # | | | LABORATORY | | | | | | SERVICES, | | | | | | TRANSFUSION | | | | | | MEDICINE | | + + + + + + | UNIT ABO | A | | [facility] | | | | | | LABORATORY | | | | | | SERVICES, | | | | | | TRANSFUSION | | | | | | MEDICINE | | + + + + + + | UNIT RH | POS | | [facility] | | | | | | LABORATORY | | | | | | SERVICES, | | | | | | TRANSFUSION | | | | | | MEDICINE | | + + + + + + | STATUS OF | Presumed Transfused | | [facility] | | | UNIT | | | LABORATORY | | | | | | SERVICES, | | | | | | TRANSFUSION | | | | | | MEDICINE | | + + + + + + | EXPIRATION | [id number] | | [facility] | | | DATE | | | LABORATORY | | | | | | SERVICES, | | | | | | TRANSFUSION | | | | | | MEDICINE | | + + + + + + | BLOOD TYPE | [id number] | | [facility] | | | BARCODE | | | LABORATORY | | | | | | SERVICES, | | | | | | TRANSFUSION | | | | | | MEDICINE | | + + + + + + | BLOOD | [id number] | | [facility] | | | PRODUCT | | | LABORATORY | | | CODE | | | SERVICES, | | | | | | TRANSFUSION | | | | | | MEDICINE | | + + + + + + + + | Specimen | + + | | + + + + + + + | Performing | Address | City/State/Zipcode | Phone Number | | Organization | | | | + + + + + | [facility] | [address] | [place] [address] | | | SERVICES, | [address] | | | | TRANSFUSION MEDICINE | | | | + + + + + CAPILLARY BLOOD GLUCOSE (NO CHG), POC (07/27/2019 2:44 PM PDT) + +---------+ + + + | Component | Value | Ref Range | Performed | Pathologist | | | | | At | Signature | + +---------+ + + + | BLOOD | 180 (H) | 70 - 99 mg/dL | [facility] - | | | GLUCOSE, | | | [facility] | | | POC | | | [facility] | | | | | | OF CARE | | | | | | TESTS | | + +---------+ + + + + + | Specimen | + + | Blood | + + + + + + + | Performing | Address | City/State/Zipcode | Phone Number | | Organization | | | | + + + + + | [facility] | [address] | [place], [place] | | | [facility] | [address] | [address] | | | TESTS | | | | + + + + + CBC (HEMOGRAM) ONLY (07/27/2019 2:34 PM PDT) + + + + + + | Component | Value | Ref Range | Performed | Pathologist | | | | | At | Signature | + + + + + + | WHITE CELL | 3.51 | 3.50 - 10.80 | [facility] | | | COUNT | | K/cu mm | LABORATORY | | | | | | SERVICES, | | | | | | CORE | | + + + + + + | RED CELL | 1.94 (L) | 4.50 - 6.00 | [facility] | | | COUNT | | M/cu mm | LABORATORY | | | | | | SERVICES, | | | | | | CORE | | + + + + + + | HEMOGLOBIN | 6.8 (L) | 13.5 - 17.5 | [facility] | | | | | g/dL | LABORATORY | | | | | | SERVICES, | | | | | | CORE | | + + + + + + | HEMATOCRIT | 20.4 (L) | 41.0 - 53.0 % | [facility] | | | | | | LABORATORY | | | | | | SERVICES, | | | | | | CORE | | + + + + + + | MCV | 105.2 (H) | 80.0 - 100.0 fL | [facility] | | | | | | LABORATORY | | | | | | SERVICES, | | | | | | CORE | | + + + + + + | MCHC | 33.3 | 32.0 - 36.0 | [facility] | | | | | g/dL | LABORATORY | | | | | | SERVICES, | | | | | | CORE | | + + + + + + | RDW SD | 59.2 (H) | 35.1 - 46.3 fL | [facility] | | | | | | LABORATORY | | | | | | SERVICES, | | | | | | CORE | | + + + + + + | PLATELET | 30 (L) | 150 - 400 K/cu | [facility] | | | COUNT | | mm | LABORATORY | | | | | | SERVICES, | | | | | | CORE | | + + + + + + | MPV | 10.2 | 9.7 - 12.3 fL | [facility] [...] | + + + + + | [facility] | [address] | [place] [address] | | | SERVICES, CORE | [address] | | | + + + + + X-RAY ABD LTD FEEDING TUBE EVAL PORTABLE (07/27/2019 12:49 PM PDT) + + | Specimen | + + | | + + + + + | Narrative | Performed At | + + + | EXAM: AR ABD LTD FEEDING TUBE EVAL INDICATION: ensure proper | [facility] | | tube placement TECHNIQUE: Semi-upright portable view of the upper | RADIOLOGY VOICE | | abdomen. Comparison: Chest x-ray from 07/26/2019. | RECOGNITION 2 | | FINDINGS/IMPRESSION: Esophagogastric tube is kinked within the distal | | | esophagus, pointing retrograde with tip terminating in the mid to | | | distal esophagus. There is cardiomegaly. Low lung volumes. Right | | | pleural effusion and atelectasis. Partially visualized nonobstructive | | | bowel gas pattern, with mildly distended loops of colon. These | | | results were discussed with Dr. Feliciano on 07/27/2019 12:52 PM by | | | Roger Woodson MD. I have personally reviewed the images | | | and, if necessary, edited the report. I agree with the report as now | | | presented. Final signature: Roger Woodson MD | | | 07/27/2019 12:53 PM Preliminary: Roger Woodson MD | | | Dictation initiated: Roger Woodson MD 07/27/2019 12:50 PM | | + + + + + | Procedure Note | + + | Service Account, [employer] Res In Interface - 07/27/2019 12:54 PM PDT EXAM: AR ABD LTD | | FEEDING TUBE EVAL INDICATION: ensure proper tube placement TECHNIQUE: Semi-upright | | portable view of the upper abdomen. Comparison: Chest x-ray from 07/26/2019. | | FINDINGS/IMPRESSION: Esophagogastric tube is kinked within the distal esophagus, | | pointing retrograde with tip terminating in the mid to distal esophagus. There is | | cardiomegaly. Low lung volumes. Right pleural effusion and atelectasis. Partially | | visualized nonobstructive bowel gas pattern, with mildly distended loops of colon. These | | results were discussed with Dr. Feliciano on 07/27/2019 12:52 PM by Roger Woodson | | . I have personally reviewed the images and, if necessary, edited the report. I agree | | with the report as now presented. Final signature: Roger Woodson MD | | 07/27/2019 12:53 PM Preliminary: Roger Woodson MD Dictation initiated: | | Roger Woodson MD 07/27/2019 12:50 PM | | | |I have personally reviewed the images and, if necessary, edited the report. I agree with th e report as now presented. | | | |Final signature: Roger Woodson MD 07/27/2019 12:53 PM | |Preliminary: Roger Woodson MD | |Dictation initiated: Roger Woodson MD 07/27/2019 12:50 PM | + + + +---------+ + + | Performing | Address | City/State/Zipcode | Phone Number | | Organization | | | | + +---------+ + + | [facility] | | | | | VOICE RECOGNITION 2 | | | | + +---------+ + + ANTIBODY SCREEN (07/27/2019 4:55 AM PDT) + + + + + + | Component | Value | Ref Range | Performed | Pathologist | | | | | At | Signature | + + + + + + | Antibody | Negative | | [facility] | | | Screen | | | LABORATORY | | | | | | SERVICES, | | | | | | TRANSFUSION | | | | | | MEDICINE | | + + + + + + + + | Specimen | + + | Blood - Blood | | (substance) | + + + + + + + | Performing | Address | City/State/Zipcode | Phone Number | | Organization | | | | + + + + + | [facility] | [address] | [place] [address] | | | SERVICES, | [address] | | | | TRANSFUSION MEDICINE | | | | + + + + + ABO & RH TYPE (07/27/2019 4:55 AM PDT) + + + + + + | Component | Value | Ref Range | Performed | Pathologist | | | | | At | Signature | + + + + + + | ABO Group | A | | [facility] | | | | | | LABORATORY | | | | | | SERVICES, | | | | | | TRANSFUSION | | | | | | MEDICINE | | + + + + + + | Rh Type | Positive | | [facility] | | | | | | LABORATORY | | | | | | SERVICES, | | | | | | TRANSFUSION | | | | | | MEDICINE | | + + + + + + + + | Specimen | + + | Blood - Blood | | (substance) | + + + + + + + | Performing | Address | City/State/Zipcode | Phone Number | | Organization | | | | + + + + + | [facility] | [address] | [place] [address] | | | SERVICES, | [address] | | | | TRANSFUSION MEDICINE | | | | + + + + + CBC (HEMOGRAM) ONLY (07/27/2019 3:29 AM PDT) + + + + + + | Component | Value | Ref Range | Performed | Pathologist | | | | | At | Signature | + + + + + + | WHITE CELL | 4.27 | 3.50 - 10.80 | [facility] | | | COUNT | | K/cu mm | LABORATORY | | | | | | SERVICES, | | | | | | CORE | | + + + + + + | RED CELL | 2.05 (L) | 4.50 - 6.00 | [facility] | | | COUNT | | M/cu mm | LABORATORY | | | | | | SERVICES, | | | | | | CORE | | + + + + + + | HEMOGLOBIN | 7.2 (L) | 13.5 - 17.5 | [facility] | | | | | g/dL | LABORATORY | | | | | | SERVICES, | | | | | | CORE | | + + + + + + | HEMATOCRIT | 21.5 (L) | 41.0 - 53.0 % | [facility] | | | | | | LABORATORY | | | | | | SERVICES, | | | | | | CORE | | + + + + + + | MCV | 104.9 (H) | 80.0 - 100.0 fL | [facility] | | | | | | LABORATORY | | | | | | SERVICES, | | | | | | CORE | | + + + + + + | MCHC | 33.5 | 32.0 - 36.0 | [facility] | | | | | g/dL | LABORATORY | | | | | | SERVICES, | | | | | | CORE | | + + + + + + | RDW SD | 58.7 (H) | 35.1 - 46.3 fL | [facility] | | | | | | LABORATORY | | | | | | SERVICES, | | | | | | CORE | | + + + + + + | PLATELET | 40 (L) | 150 - 400 K/cu | [facility] | | | COUNT | | mm | LABORATORY | | | | | | SERVICES, | | | | | | CORE | | + + + + + + | MPV | 10.9 | 9.7 - 12.3 fL | [facility] [...] + | [facility] | [address] | [place] [address] | | | SERVICES, CORE | [address] | | | + + + + + COAGULOPATHY PANEL (INR,APTT,FIBRINOGEN) (07/27/2019 3:29 AM PDT) + + + + + + | Component | Value | Ref Range | Performed | Pathologist | | | | | At | Signature | + + + + + + | INR | 4.24 (H) | 0.90 - 1.20 INR | [facility] | | | | | | LABORATORY | | | | | | SERVICES, | | | | | | CORE | | + + + + + + | APTT | 75.3 (H) | 26.0 - 36.0 | [facility] | | | | | seconds | LABORATORY | | | | | | SERVICES, | | | | | | CORE | | + + + + + + | FIBRINOGEN | 103 (L) | 150 - 450 mg/dL | [facility] | | | LEVEL | | | LABORATORY | | | [...] with mech. valves (2.5 - 3.5) INR APTT values for | SERVICES, CORE | | monitoring heparin therapy may be affected by specimens processed >1 | | | hour after collection. APTT Therapeutic Range: | | | (75 - 120) sec Heparin levels of 0.35 - 0.7 U/mL | | + + + + + + + + | Performing | Address | City/State/Zipcode | Phone Number | | Organization | | | | + + + + + | [facility] | [address] | [place] [address] | | | SERVICES, CORE | [address] | | | + + + + + COMPLETE METABOLIC SET (NA,K,CL,CO2,BUN,CREAT,GLUC,CA,AST,ALT,BILI TOTAL,ALK PHOS,ALB,PROT TOTAL) (07/27/2019 3:29 AM PDT) + + + + + + | Component | Value | Ref Range | Performed | Pathologist | | | | | At | Signature | + + + + + + | GLUCOSE, | 232 (H) | 70 - 99 mg/dL | [facility] | | | PLASMA | | | LABORATORY | | | (LAB) | | | SERVICES, | | | | | | CORE | | + + + + + + | BUN, PLASMA | 35 (H) | 6 - 20 mg/dL | [facility] | | | (LAB) | | | LABORATORY | | | | | | SERVICES, | | | | | | CORE | | + + + + + + | CREATININE | 1.08 | 0.70 - 1.30 | [facility] | | | PLASMA | | mg/dL | LABORATORY | | | (LAB) | | | SERVICES, | | | | | | CORE | | + + + + + + | EGFR | >60 | >60 mL/min | [facility] | | | - | | | LABORATORY | | | TURKISH | | | SERVICES, | | | | | | CORE | | + + + + + + | EGFR NON | >60 | >60 mL/min | [facility] | | | -JARRED | | | LABORATORY | | | [...] + + + + | CHLORIDE, | 110 (H) | 97 - 108 mmol/L | [facility] | | | PLASMA | | | LABORATORY | | | (LAB) | | | SERVICES, | | | | | | CORE | | + + + + + + | TOTAL CO2, | 20 (L) | 21 - 32 mmol/L | [facility] | | | PLASMA | | | LABORATORY | | | (LAB) | | | SERVICES, | | | | | | CORE | | + + + + + + | CALCIUM, | 9.1 | 8.6 - 10.2 | [facility] | | | PLASMA | | mg/dL | LABORATORY | | | (LAB) | | | SERVICES, | | | | | | CORE | | + + + + + + | CALCIUM(ALB | 9.9 | 8.6 - 10.2 | [facility] | | | CORRECTED) | | mg/dL | LABORATORY | | | | | | SERVICES, | | | | | | CORE | | + + + + + + | BILIRUBIN | 14.3 (H) | 0.3 - 1.2 mg/dL | [facility] | | | TOTAL | | | LABORATORY | | | | | | SERVICES, | | | | | | CORE | | + + + + + + | TOTAL | 6.2 (L) | 6.4 - 8.2 g/dL | [facility] | | | PROTEIN, | | | LABORATORY | | | PLASMA | | | SERVICES, | | | (LAB) | | | CORE | | + + + + + + | ALBUMIN, | 3.0 (L) | 3.5 - 4.7 g/dL | [facility] | | | PLASMA | | | LABORATORY | | | (LAB) | | | SERVICES, | | | | | | CORE | | + + + + + + | ALK PHOS | 98 | 53 - 128 U/L | [facility] | | | | | | LABORATORY | | | | | | SERVICES, | | | | | | CORE | | + + + + + + | AST(SGOT) | 64 (H) | <=41 U/L | [facility] | | | | | | LABORATORY | | | | | | SERVICES, | | | | | | CORE | | + + + + + + | ALT (SGPT) | 32 | <=60 U/L | [facility] | | | | | | LABORATORY | | | | | | SERVICES, | | | | | | CORE | | + + + + + + | ANION GAP | 8 | 4 - 11 mmol/L | [facility] | | | | | | LABORATORY | | | | | | SERVICES, | | | | | | CORE | | + + + + + + | ANION | 10 | 4 - 11 mmol/L | [facility] [...] MDRD equation recommended by the National | [facility] | | Kidney Disease Education Program. Estimated GFR Interpretive | LABORATORY | | Information: <60 mL/min/1.73 sq m Chronic Kidney | SERVICES, CORE | | Disease <15 mL/min/1.73 sq m Kidney Failure | | | Estimated GFR greater than 60 mL/min/1.73 sq m is of limited clinical | | | value. The MDRD equation is not valid in the following situations: - | | | Patients under 18 years of [...] | + + + + + | [facility] | [address] | [place] [address] | | | ARTIS T[place]LOR | [address] | | | + + + + + CARDIOLOGY (07/27/2019 12:00 AM PDT) + + + | Narrative | Performed At | + + + | | | + + + CAPILLARY BLOOD GLUCOSE (NO CHG), POC (07/26/2019 9:52 PM PDT) + +---------+ + + + | Component | Value | Ref Range | Performed | Pathologist | | | | | At | Signature | + +---------+ + + + | BLOOD | 172 (H) | 70 - 99 mg/dL | [facility] | | | GLUCOSE, | | | [facility] | | | POC | | | [facility] | | | | | | OF CARE | | | | | | TESTS | | + +---------+ + + + + + | Specimen | + + | Blood | + + + + + + + | Performing | Address | City/State/Zipcode | Phone Number | | Organization | | | | + + + + + | [facility] | [address] | [place], [place] | | | [facility] | [address] | [address] | | | TESTS | | | | + + + + + CAPILLARY BLOOD GLUCOSE (NO CHG), POC (07/26/2019 5:55 PM PDT) + +---------+ + + + | Component | Value | Ref Range | Performed | Pathologist | | | | | At | Signature | + +---------+ + + + | BLOOD | 160 (H) | 70 - 99 mg/dL | [facility] | | | GLUCOSE, | | | [facility] | | | POC | | | [facility] | | | | | | OF CARE | | | | | | TESTS | | + +---------+ + + + + + | Specimen | + + | Blood | + + + + + + + | Performing | Address | City/State/Zipcode | Phone Number | | Organization | | | | + + + + + | [facility] | [address] | [place], [place] | | | [facility] [place] [facility] | [address] | [address] | | | TESTS | | | | + + + + + X-RAY CHEST 2 VIEW (07/26/2019 1:29 PM PDT) + + | Specimen | + + | | + + + + + | Narrative | Performed At | + + + | EXAM: CHEST 2 VIEWS HISTORY: Confusion/delirium, altered LOC, | [facility] | | unexplained COMPARISON: 07/20/2019 FINDINGS: Low lung | RADIOLOGY VOICE | | volumes. Cardiomediastinal silhouette is unchanged. Trace bilateral | RECOGNITION 2 | | pleural effusions similar to the prior. No significant pneumothorax. | | | Scattered subsegmental atelectasis unchanged. No acute osseous | | | abnormalities. Multilevel lower thoracic vertebral body compression | | | deformities similar to the comparisons. IMPRESSION: Trace | | | bilateral pleural effusions and scattered subsegmental atelectasis | | | similar to the prior. I have personally reviewed the images and, | | | if necessary, edited the report. I agree with the report as now | | | presented. Final signature: Johnathon Badillo MD 07/26/2019 | | | 4:23 PM Preliminary: Johnathon Badillo MD Dictation | | | initiated: Johnathon Badillo MD 07/26/2019 4:22 PM | | + + + + + | Procedure Note | + + | Service Account, [employer] Res In Interface - 07/26/2019 4:24 PM PDT EXAM: CHEST 2 | | VIEWS HISTORY: Confusion/delirium, altered LOC, unexplained COMPARISON: 07/20/2019 | | FINDINGS: Low lung volumes. Cardiomediastinal silhouette is unchanged. Trace bilateral | | pleural effusions similar to the prior. No significant pneumothorax. Scattered | | subsegmental atelectasis unchanged. No acute osseous abnormalities. Multilevel lower | | thoracic vertebral body compression deformities similar to the comparisons. IMPRESSION: | | Trace bilateral pleural effusions and scattered subsegmental atelectasis similar to the | | prior. I have personally reviewed the images and, if necessary, edited the report. I | | agree with the report as now presented. Final signature: Johnathon Badillo MD | | 07/26/2019 4:23 PM Preliminary: Johnathon Badillo MD Dictation initiated: Johnathon Baum | Darren Badillo MD 07/26/2019 4:22 PM | | | |IMPRESSION: | | | |Trace bilateral pleural effusions and scattered subsegmental atelectasis similar to the mariama or. | | | |I have personally reviewed the images and, if necessary, edited the report. I agree with th e report as now presented. | | | |Final signature: Johnathon Badillo MD 07/26/2019 4:23 PM | |Preliminary: Johnathon Badillo MD | |Dictation initiated: Johnathon Badillo MD 07/26/2019 4:22 PM | + + + +---------+ + + | Performing | Address | City/State/Zipcode | Phone Number | | Organization | | | | + +---------+ + + | [facility] | | | | | VOICE RECOGNITION 2 | | | | + +---------+ + + CAPILLARY BLOOD GLUCOSE (NO CHG), POC (07/26/2019 12:00 PM PDT) + +---------+ + + + | Component | Value | Ref Range | Performed | Pathologist | | | | | At | Signature | + +---------+ + + + | BLOOD | 155 (H) | 70 - 99 mg/dL | [facility] - | | | GLUCOSE, | | | [facility] | | | POC | | | [facility] | | | | | | OF CARE | | | | | | TESTS | | + +---------+ + + + + + | Specimen | + + | Blood | + + + + + + + | Performing | Address | City/State/Zipcode | Phone Number | | Organization | | | | + + + + + | [facility] | [address] | [place], [place] | | | [facility] | [address] | [address] | | | TESTS | | | | + + + + + 12 LEAD ECG (07/26/2019 11:27 AM PDT) + + + + + + | Component | Value | Ref Range | Performed | Pathologist | | | | | At | Signature | + + + + + + | VENTRICULAR | 59 | bpm | [facility] | | | RATE | | | OF | | | | | | CARDIOLOGY | | + + + + + + | ATRIAL RATE | 59 | ms | [facility] | | | | | | OF | | | | | | CARDIOLOGY | | + + + + + + | P-R | 179 | ms | [facility] | | | INTERVAL | | | OF | | | | | | CARDIOLOGY | | + + + + + + | P AXIS | 19 | deg | [facility] | | | | | | OF | | | | | | CARDIOLOGY | | + + + + + + | QRS | 152 | ms | [facility] | | | DURATION | | | OF | | | | | | CARDIOLOGY | | + + + + + + | QT | 531 | ms | [facility] | | | | | | OF | | | | | | CARDIOLOGY | | + + + + + + | QTC-BELLA | 526 | ms | [facility] | | | | | | OF | | | | | | CARDIOLOGY | | + + + + + + | R AXIS | 59 | deg | [facility] | | | | | | OF | | | | | | CARDIOLOGY | | + + + + + + | T AXIS | 17 | deg | [facility] | | | | | | OF | | | | | | CARDIOLOGY | | + + + + + + | ECG | Sinus bradycardia | | [facility] | | | IMPRESSION | | | OF | | | | | | CARDIOLOGY | | + + + + + + | ECG | Right bundle branch | | [facility] | | | IMPRESSION | block- ABNORMAL ECG - | | OF | | | | | | CARDIOLOGY | | + + + + + + | ECG | Electronically signed | | [facility] | | | IMPRESSION | by: BEATRICE MCINTYRE | | OF | | | | 07-26-2019 12:42:06 | | CARDIOLOGY | | + + [...] DEPT OF | [address] | [place], [place] | | | CARDIOLOGY | [address] | [address] | | + + + + + CULTURE, BLOOD BACTI & YEAST [facility] (07/26/2019 10:51 AM PDT) + + + + + + | Component | Value | Ref Range | Performed | Pathologist | | | | | At | Signature | + + + + + + | CULTURE | Final Report:No Bacteria | | [facility] | | | RESULT | or Yeast isolated at 5 | | LABORATORY | | | | days. | | SERVICES, | | | | | | CORE | | + + + + + + + + | Specimen | + + | Blood - Antecubital | | region structure | | (body structure) | + + + + + + + | Performing | Address | City/State/Zipcode | Phone Number | | Organization | | | | + + + + + | [facility] | [address] | [place] [address] | | | SERVICES, CORE | [address] | | | + + + + + CULTURE, BLOOD BACTI & YEAST [facility] (07/26/2019 10:51 AM PDT) + + + + + + | Component | Value | Ref Range | Performed | Pathologist | | | | | At | Signature | + + + + + + | CULTURE | Final Report:No Bacteria | | [facility] | | | RESULT | or Yeast isolated at 5 | | LABORATORY | | | | days. | | SERVICES, | | | | | | CORE | | + + + + + + + + | Specimen | + + | Blood - Antecubital | | region structure | | (body structure) | + + + + + + + | Performing | Address | City/State/Zipcode | Phone Number | | Organization | | | | + + + + + | [facility] | [address] | [place] [address] | | | SERVICES, [facility] | [address] | | | + + + + + CAPILLARY BLOOD GLUCOSE (NO CHG), POC (07/26/2019 8:24 AM PDT) + +---------+ + + + | Component | Value | Ref Range | Performed | Pathologist | | | | | At | Signature | + +---------+ + + + | BLOOD | 176 (H) | 70 - 99 mg/dL | [facility] - | | | GLUCOSE, | | | [facility] | | | POC | | | [place] [place] | | | | | | OF CARE | | | | | | TESTS | | + +---------+ + + + + + | Specimen | + + | Blood | + + + + + + + | Performing | Address | City/State/Zipcode | Phone Number | | Organization | | | | + + + + + | [facility] | [address] | [place], [place] | | | [facility] | [address] | [address] | | | TESTS | | | | + + + + + MAGNESIUM, PLASMA (07/26/2019 4:36 AM PDT) + +---------+ + + + | Component | Value | Ref Range | Performed | Pathologist | | | | | At | Signature | + +---------+ + + + | MAGNESIUM,P | 1.5 (L) | 1.6 - 2.6 mg/dL | [...] + + | [facility] | [address] | [place] [address] | | | SERVICES, CORE | [address] | | | + + + + + CBC (HEMOGRAM) ONLY (07/26/2019 4:36 AM PDT) + + + + + + | Component | Value | Ref Range | Performed | Pathologist | | | | | At | Signature | + + + + + + | WHITE CELL | 5.12 | 3.50 - 10.80 | [facility] | | | COUNT | | K/cu mm | LABORATORY | | | | | | SERVICES, | | | | | | CORE | | + + + + + + | RED CELL | 2.26 (L) | 4.50 - 6.00 | [facility] | | | COUNT | | M/cu mm | LABORATORY | | | | | | SERVICES, | | | | | | CORE | | + + + + + + | HEMOGLOBIN | 8.0 (L) | 13.5 - 17.5 | [facility] | | | | | g/dL | LABORATORY | | | | | | SERVICES, | | | | | | CORE | | + + + + + + | HEMATOCRIT | 23.3 (L) | 41.0 - 53.0 % | [facility] | | | | | | LABORATORY | | | | | | SERVICES, | | | | | | CORE | | + + + + + + | MCV | 103.1 (H) | 80.0 - 100.0 fL | [facility] | | | | | | LABORATORY | | | | | | SERVICES, | | | | | | CORE | | + + + + + + | MCHC | 34.3 | 32.0 - 36.0 | [facility] | | | | | g/dL | LABORATORY | | | | | | SERVICES, | | | | | | CORE | | + + + + + + | RDW SD | 54.5 (H) | 35.1 - 46.3 fL | [facility] | | | | | | LABORATORY | | | | | | SERVICES, | | | | | | CORE | | + + + + + + | PLATELET | 37 (L) | 150 - 400 K/cu | [facility] | | | COUNT | | mm | LABORATORY | | | | | | SERVICES, | | | | | | CORE | | + + + + + + | MPV | 9.8 | 9.7 - 12.3 fL | [facility] | | | | | | LABORATORY | | | | | | SERVICES, | | | | | | CORE | | + + + + + + | NRBC% | 0.4 (H) | 0.0 - 0.3 % | [facility] | | | | | | LABORATORY | | | | | | SERVICES, | | | | | | CORE | | + + + + + + | NRBC# | 0.02 | 0.00 - 0.02 | [facility] | [...] + | [facility] | [address] | [place] [address] | | | SERVICES, CORE | [address] | | | + + + + + COAGULOPATHY PANEL (INR,APTT,FIBRINOGEN) (07/26/2019 4:36 AM PDT) + + + + + + | Component | Value | Ref Range | Performed | Pathologist | | | | | At | Signature | + + + + + + | INR | 3.80 (H) | 0.90 - 1.20 INR | [facility] | | | | | | LABORATORY | | | | | | SERVICES, | | | | | | CORE | | + + + + + + | APTT | 73.6 (H) | 26.0 - 36.0 | [facility] | | | | | seconds | LABORATORY | | | | | | SERVICES, | | | | | | CORE | | + + + + + + | FIBRINOGEN | 108 (L) | 150 - 450 mg/dL | [facility] | | | LEVEL | | | LABORATORY | | | [...] with mech. valves (2.5 - 3.5) INR APTT values for | SERVICES, CORE | | monitoring heparin therapy may be affected by specimens processed >1 | | | hour after collection. APTT Therapeutic Range: | | | (75 - 120) sec Heparin levels of 0.35 - 0.7 U/mL | | + + + + + + + + | Performing | Address | City/State/Zipcode | Phone Number | | Organization | | | | + + + + + | [facility] | [address] | [place] [address] | | | SERVICES, CORE | [address] | | | + + + + + COMPLETE METABOLIC SET (NA,K,CL,CO2,BUN,CREAT,GLUC,CA,AST,ALT,BILI TOTAL,ALK PHOS,ALB,PROT TOTAL) (07/26/2019 4:36 AM PDT) + + + + + + | Component | Value | Ref Range | Performed | Pathologist | | | | | At | Signature | + + + + + + | GLUCOSE, | 189 (H) | 70 - 99 mg/dL | [facility] | | | PLASMA | | | LABORATORY | | | (LAB) | | | SERVICES, | | | | | | CORE | | + + + + + + | BUN, PLASMA | 35 (H) | 6 - 20 mg/dL | [facility] | | | (LAB) | | | LABORATORY | | | | | | SERVICES, | | | | | | CORE | | + + + + + + | CREATININE | 1.09 | 0.70 - 1.30 | [facility] | | | PLASMA | | mg/dL | LABORATORY | | | (LAB) | | | SERVICES, | | | | | | CORE | | + + + + + + | EGFR | >60 | >60 mL/min | [facility] | | | - | | | LABORATORY | | | [place] | | | SERVICES, | | | | | | CORE | | + + + + + + | EGFR NON | >60 | >60 mL/min | [facility] | | | -JARRED | | | LABORATORY | | | [...] + + + + | CHLORIDE, | 109 (H) | 97 - 108 mmol/L | [facility] | | | PLASMA | | | LABORATORY | | | (LAB) | | | SERVICES, | | | | | | CORE | | + + + + + + | TOTAL CO2, | 21 | 21 - 32 mmol/L | [facility] | | | PLASMA | | | LABORATORY | | | (LAB) | | | SERVICES, | | | | | | CORE | | + + + + + + | CALCIUM, | 9.2 | 8.6 - 10.2 | [facility] | | | PLASMA | | mg/dL | LABORATORY | | | (LAB) | | | SERVICES, | | | | | | CORE | | + + + + + + | CALCIUM(ALB | 9.9 | 8.6 - 10.2 | [facility] | | | CORRECTED) | | mg/dL | LABORATORY | | | | | | SERVICES, | | | | | | CORE | | + + + + + + | BILIRUBIN | 14.8 (H) | 0.3 - 1.2 mg/dL | [facility] | | | TOTAL | | | LABORATORY | | | | | | SERVICES, | | | | | | CORE | | + + + + + + | TOTAL | 6.3 (L) | 6.4 - 8.2 g/dL | [facility] | | | PROTEIN, | | | LABORATORY | | | PLASMA | | | SERVICES, | | | (LAB) | | | CORE | | + + + + + + | ALBUMIN, | 3.1 (L) | 3.5 - 4.7 g/dL | [facility] | | | PLASMA | | | LABORATORY | | | (LAB) | | | SERVICES, | | | | | | CORE | | + + + + + + | ALK PHOS | 100 | 53 - 128 U/L | [facility] | | | | | | LABORATORY | | | | | | SERVICES, | | | | | | CORE | | + + + + + + | AST(SGOT) | 65 (H) | <=41 U/L | [facility] | | | | | | LABORATORY | | | | | | SERVICES, | | | | | | CORE | | + + + + + + | ALT (SGPT) | 34 | <=60 U/L | [facility] | | | | | | LABORATORY | | | | | | SERVICES, | | | | | | CORE | | + + + + + + | ANION GAP | 8 | 4 - 11 mmol/L | [facility] | | | | | | LABORATORY | | | | | | SERVICES, | | | | | | CORE | | + + + + + + | ANION | 10 | 4 - 11 mmol/L | [facility] [...] MDRD equation recommended by the National | [facility] | | Kidney Disease Education Program. Estimated GFR Interpretive | LABORATORY | | Information: <60 mL/min/1.73 sq m Chronic Kidney | SERVICES, CORE | | Disease <15 mL/min/1.73 sq m Kidney Failure | | | Estimated GFR greater than 60 mL/min/1.73 sq m is of limited clinical | | | value. The MDRD equation is not valid in the following situations: - | | | Patients under 18 years of [...] | + + + + + | [facility] | [address] | [place] [address] | | | [place] | [address] | | | + + + + + CARDIOLOGY (07/26/2019 12:00 AM PDT) + + + | Narrative | Performed At | + + + | | | + + + CARDIOLOGY (07/26/2019 12:00 AM PDT) + + + | Narrative | Performed At | + + + | | | + + + CAPILLARY BLOOD GLUCOSE (NO CHG), POC (07/25/2019 9:44 PM PDT) + +---------+ + + + | Component | Value | Ref Range | Performed | Pathologist | | | | | At | Signature | + +---------+ + + + | BLOOD | 170 (H) | 70 - 99 mg/dL | [facility] | | | GLUCOSE, | | | [facility] | | | POC | | | [facility] | | | | | | OF CARE | | | | | | TESTS | | + +---------+ + + + + + | Specimen | + + | Blood | + + + + + + + | Performing | Address | City/State/Zipcode | Phone Number | | Organization | | | | + + + + + | [facility] | [address] | [place], [place] | | | [facility] | [address] | [address] | | | TESTS | | | | + + + + + CAPILLARY BLOOD GLUCOSE (NO CHG), POC (07/25/2019 7:59 PM PDT) + +---------+ + + + | Component | Value | Ref Range | Performed | Pathologist | | | | | At | Signature | + +---------+ + + + | BLOOD | 163 (H) | 70 - 99 mg/dL | [facility] | | | GLUCOSE, | | | [facility] | | | POC | | | [facility] | | | | | | OF CARE | | | | | | TESTS | | + +---------+ + + + + + | Specimen | + + | Blood | + + + + + + + | Performing | Address | City/State/Zipcode | Phone Number | | Organization | | | | + + + + + | [facility] | [address] | [place], [place] | | | [facility] | [address] | [address] | | | TESTS | | | | + + + + + CAPILLARY BLOOD GLUCOSE (NO CHG), POC (07/25/2019 5:40 PM PDT) + +-------+ + + + | Component | Value | Ref Range | Performed | Pathologist | | | | | At | Signature | + +-------+ + + + | BLOOD | 90 | 70 - 99 mg/dL | [facility] - | | | GLUCOSE, | | | [facility] | | | POC | | | [facility] | | | | | | OF CARE | | | | | | TESTS | | + +-------+ + + + + + | Specimen | + + | Blood | + + + + + + + | Performing | Address | City/State/Zipcode | Phone Number | | Organization | | | | + + + + + | [facility] | [address] | [place], [place] | | | [facility] | [address] | [address] | | | TESTS | | | | + + + + + URINE, MICROSCOPIC EXAM (07/25/2019 5:25 PM PDT) + +---------+ + + + | Component | Value | Ref Range | Performed | Pathologist | | | | | At | Signature | + +---------+ + + + | RED CELLS | 16 (H) | 0 - 3 /hpf | [facility] | | | | | | LABORATORY | | | | | | SERVICES, | | | | | | CORE | | + +---------+ + + + | WHITE CELLS | 1 | 0 - 5 /hpf | [facility] | | | | | | LABORATORY | | | | | | SERVICES, | | | | | | CORE | | + +---------+ + + + | BACTERIA | None | None /hpf | [facility] | | | | | | LABORATORY | | | | | | SERVICES, | | | | | | CORE | | + +---------+ + + + | YEAST (LAB) | Few (A) | None /hpf | [facility] | | | | | | LABORATORY | | | | | | SERVICES, | | | | | | CORE | | + +---------+ + + + | SQUAMOUS | Few | None, Few /hpf | [facility] | | | EPITHELIAL | | | LABORATORY | | | | | | SERVICES, | | | | | | CORE | | + +---------+ + + + | MUCOUS | None | None, Few /hpf | [facility] | | | | | | LABORATORY | | | | | | SERVICES, | | | | | | CORE | | + +---------+ + + + | NON-SQUAMOU | Few (A) | None /hpf | [facility] | | | S EPITH | | | LABORATORY | | | | | | SERVICES, | | | | | | CORE | | + +---------+ + + + | HYALINE | 1 | 0 - 2 /lpf | [facility] | | | CASTS | | | LABORATORY | | | | | | SERVICES, | | | | | | CORE | | + +---------+ + + + | GRANULAR | 0 | 0 - 2 /lpf | [facility] | | | CASTS | | | LABORATORY | | | | | | SERVICES, | | | | | | CORE | | + +---------+ + + + | CELLULAR | 0 | <=0 /lpf | [facility] | | | CASTS | | | LABORATORY | | | | | | SERVICES, | | | | | | CORE | | + +---------+ + + + | TRIPLE P04 | None | None, Few /hpf | [facility] | | | CRYSTALS | | | LABORATORY | | | | | | SERVICES, | | | | | | CORE | | + +---------+ + + + | CALCIUM | None | None, Few /hpf | [facility] | | | OXALATE | | | LABORATORY | | | [facility] | | | SERVICES, | | | | | | CORE | | + +---------+ + + + | URIC ACID | None | None, Few /hpf | [facility] | | | CRYSTALS | | | LABORATORY | | | | | | SERVICES, | | | | | | CORE | | + +---------+ + + + | AMORPHOUS | None | None, Few /hpf | [facility] | | | CRYSTALS | | | LABORATORY | | | [...] | + + + + + | [facility] | [address] | [place] [address] | | | SERVICES, CORE | [address] | | | + + + + + CAPILLARY BLOOD GLUCOSE (NO CHG), POC (07/25/2019 5:14 PM PDT) + +--------+ + + + | Component | Value | Ref Range | Performed | Pathologist | | | | | At | Signature | + +--------+ + + + | BLOOD | 67 (L) | 70 - 99 mg/dL | [facility] - | | | GLUCOSE, | | | [facility] | | | POC | | | [facility] | | | | | | OF CARE | | | | | | TESTS | | + +--------+ + + + + + | Specimen | + + | Blood | + + + + + + + | Performing | Address | City/State/Zipcode | Phone Number | | Organization | | | | + + + + + | [facility] | [address] | [place], [place] | | | [facility] | [address] | [address] | | | TESTS | | | | + + + + + CBC (HEMOGRAM) ONLY (07/25/2019 1:55 PM PDT) + + + + + + | Component | Value | Ref Range | Performed | Pathologist | | | | | At | Signature | + + + + + + | WHITE CELL | 5.47 | 3.50 - 10.80 | [facility] | | | COUNT | | K/cu mm | LABORATORY | | | | | | SERVICES, | | | | | | CORE | | + + + + + + | RED CELL | 2.41 (L) | 4.50 - 6.00 | [facility] [...] + + + + | HEMATOCRIT | 25.1 (L) | 41.0 - 53.0 % | [facility] | | | | | | LABORATORY | | | | | | SERVICES, | | | | | | CORE | | + + + + + + | MCV | 104.1 (H) | 80.0 - 100.0 fL | [facility] | | | | | | LABORATORY | | | | | | SERVICES, | | | | | | CORE | | + + + + + + | MCHC | 33.1 | 32.0 - 36.0 | [facility] | | | | | g/dL | LABORATORY | | | | | | SERVICES, | | | | | | CORE | | + + + + + + | RDW SD | 55.4 (H) | 35.1 - 46.3 fL | [facility] | | | | | | LABORATORY | | | | | | SERVICES, | | | | | | CORE | | + + + + + + | PLATELET | 40 (L) | 150 - 400 K/cu | [facility] | | | COUNT | | mm | LABORATORY | | | | | | SERVICES, | | | | | | CORE | | + + + + + + | MPV | 10.4 | 9.7 - 12.3 fL | [facility] | | | | | | LABORATORY | | | | | | SERVICES, | | | | | | CORE | | + + + + + + | NRBC% | 0.4 (H) | 0.0 - 0.3 % | [facility] | | | | | | LABORATORY | | | | | | SERVICES, | | | | | | CORE | | + + + + + + | NRBC# | 0.02 | 0.00 - 0.02 | [facility] | [...] | + + + + + | [facility] | [address] | [place] [address] | | | SERVICES, CORE | [address] | | | + + + + + CAPILLARY BLOOD GLUCOSE (NO CHG), POC (07/25/2019 1:06 PM PDT) + +---------+ + + + | Component | Value | Ref Range | Performed | Pathologist | | | | | At | Signature | + +---------+ + + + | BLOOD | 112 (H) | 70 - 99 mg/dL | [facility] - | | | GLUCOSE, | | | [facility] | | | POC | | | [facility] | | | | | | OF CARE | | | | | | TESTS | | + +---------+ + + + + + | Specimen | + + | Blood | + + + + + + + | Performing | Address | City/State/Zipcode | Phone Number | | Organization | | | | + + + + + | [facility] | [address] | [place], [place] | | | [facility] | [address] | [address] | | | TESTS | | | | + + + + + CAPILLARY BLOOD GLUCOSE (NO CHG), POC (07/25/2019 8:32 AM PDT) + +---------+ + + + | Component | Value | Ref Range | Performed | Pathologist | | | | | At | Signature | + +---------+ + + + | BLOOD | 167 (H) | 70 - 99 mg/dL | [facility] - | | | GLUCOSE, | | | [facility] | | | POC | | | [facility] | | | | | | OF CARE | | | | | | TESTS | | + +---------+ + + + + + | Specimen | + + | Blood | + + + + + + + | Performing | Address | City/State/Zipcode | Phone Number | | Organization | | | | + + + + + | [facility] | [address] | [place], [place] | | | [facility] | [address] | [address] | | | TESTS | | | | + + + + + CBC (HEMOGRAM) ONLY (07/25/2019 5:25 AM PDT) + + + + + + | Component | Value | Ref Range | Performed | Pathologist | | | | | At | Signature | + + + + + + | WHITE CELL | 4.44 | 3.50 - 10.80 | [facility] | | | COUNT | | K/cu mm | LABORATORY | | | | | | SERVICES, | | | | | | CORE | | + + + + + + | RED CELL | 2.30 (L) | 4.50 - 6.00 | [facility] | | | COUNT | | M/cu mm | LABORATORY | | | | | | SERVICES, | | | | | | CORE | | + + + + + + | HEMOGLOBIN | 8.0 (L) | 13.5 - 17.5 | [facility] | | | | | g/dL | LABORATORY | | | | | | SERVICES, | | | | | | CORE | | + + + + + + | HEMATOCRIT | 23.7 (L) | 41.0 - 53.0 % | [facility] | | | | | | LABORATORY | | | | | | SERVICES, | | | | | | CORE | | + + + + + + | MCV | 103.0 (H) | 80.0 - 100.0 fL | [facility] | | | | | | LABORATORY | | | | | | SERVICES, | | | | | | CORE | | + + + + + + | MCHC | 33.8 | 32.0 - 36.0 | [facility] | | | | | g/dL | LABORATORY | | | | | | SERVICES, | | | | | | CORE | | + + + + + + | RDW SD | 54.9 (H) | 35.1 - 46.3 fL | [facility] | | | | | | LABORATORY | | | | | | SERVICES, | | | | | | CORE | | + + + + + + | PLATELET | 36 (L) | 150 - 400 K/cu | [facility] | | | COUNT | | mm | LABORATORY | | | | | | SERVICES, | | | | | | CORE | | + + + + + + | MPV | 10.1 | 9.7 - 12.3 fL | [facility] [...] | + + + + + | [facility] | [address] | [place] [address] | | | SERVICES, CORE | [address] | | | + + + + + COAGULOPATHY PANEL (INR,APTT,FIBRINOGEN) (07/25/2019 5:25 AM PDT) + + + + + + | Component | Value | Ref Range | Performed | Pathologist | | | | | At | Signature | + + + + + + | INR | 3.60 (H) | 0.90 - 1.20 INR | [facility] | | | | | | LABORATORY | | | | | | SERVICES, | | | | | | CORE | | + + + + + + | APTT | 69.9 (H) | 26.0 - 36.0 | [facility] | | | | | seconds | LABORATORY | | | | | | SERVICES, | | | | | | CORE | | + + + + + + | FIBRINOGEN | 106 (L) | 150 - 450 mg/dL | [facility] | | | LEVEL | | | LABORATORY | | | [...] with mech. valves (2.5 - 3.5) INR APTT values for | SERVICES, CORE | | monitoring heparin therapy may be affected by specimens processed >1 | | | hour after collection. APTT Therapeutic Range: | | | (75 - 120) sec Heparin levels of 0.35 - 0.7 U/mL | | + + + + + + + + | Performing | Address | City/State/Zipcode | Phone Number | | Organization | | | | + + + + + | [facility] | [address] | [place] [address] | | | SERVICES, CORE | [address] | | | + + + + + COMPLETE METABOLIC SET (NA,K,CL,CO2,BUN,CREAT,GLUC,CA,AST,ALT,BILI TOTAL,ALK PHOS,ALB,PROT TOTAL) (07/25/2019 5:25 AM PDT) + + + + + + | Component | Value | Ref Range | Performed | Pathologist | | | | | At | Signature | + + + + + + | GLUCOSE, | 153 (H) | 70 - 99 mg/dL | [facility] | | | PLASMA | | | LABORATORY | | | (LAB) | | | SERVICES, | | | | | | CORE | | + + + + + + | BUN, PLASMA | 37 (H) | 6 - 20 mg/dL | [facility] | | | (LAB) | | | LABORATORY | | | | | | SERVICES, | | | | | | CORE | | + + + + + + | CREATININE | 1.10 | 0.70 - 1.30 | [facility] | | | PLASMA | | mg/dL | LABORATORY | | | (LAB) | | | SERVICES, | | | | | | CORE | | + + + + + + | EGFR | >60 | >60 mL/min | [facility] | | | - | | | LABORATORY | | | [place] | | | SERVICES, | | | | | | CORE | | + + + + + + | EGFR NON | >60 | >60 mL/min | [facility] | | | -JARR[facility] | | | LABORATORY | | | [...] + + | POTASSIUM, | 4.6 | 3.4 - 5.0 | [facility] | | | PLASMA | | mmol/L | LABORATORY | | | (LAB) | | | SERVICES, | | | | | | CORE | | + + + + + + | CHLORIDE, | 108 | 97 - 108 mmol/L | [facility] [...] + + + + | CALCIUM, | 9.5 | 8.6 - 10.2 | [facility] | | | PLASMA | | mg/dL | LABORATORY | | | (LAB) | | | SERVICES, | | | | | | CORE | | + + + + + + | CALCIUM(ALB | 10.2 | 8.6 - 10.2 | [facility] | | | CORRECTED) | | mg/dL | LABORATORY | | | | | | SERVICES, | | | | | | CORE | | + + + + + + | BILIRUBIN | 14.4 (H) | 0.3 - 1.2 mg/dL | [facility] | | | TOTAL | | | LABORATORY | | | | | | SERVICES, | | | | | | CORE | | + + + + + + | TOTAL | 6.3 (L) | 6.4 - 8.2 g/dL | [facility] | | | PROTEIN, | | | LABORATORY | | | PLASMA | | | SERVICES, | | | (LAB) | | | CORE | | + + + + + + | ALBUMIN, | 3.1 (L) | 3.5 - 4.7 g/dL | [facility] | | | PLASMA | | | LABORATORY | | | (LAB) | | | SERVICES, | | | | | | CORE | | + + + + + + | ALK PHOS | 108 | 53 - 128 U/L | [facility] | | | | | | LABORATORY | | | | | | SERVICES, | | | | | | CORE | | + + + + + + | AST(SGOT) | 69 (H) | <=41 U/L | [facility] | | | | | | LABORATORY | | | | | | SERVICES, | | | | | | CORE | | + + + + + + | ALT (SGPT) | 36 | <=60 U/L | [facility] | | | | | | LABORATORY | | | | | | SERVICES, | | | | | | CORE | | + + + + + + | ANION GAP | 7 | 4 - 11 mmol/L | [facility] | | | | | | LABORATORY | | | | | | SERVICES, | | | | | | CORE | | + + + + + + | ANION | 9 | 4 - 11 mmol/L | [facility] [...] MDRD equation recommended by the National | [facility] | | Kidney Disease Education Program. Estimated GFR Interpretive | LABORATORY | | Information: <60 mL/min/1.73 sq m Chronic Kidney | SERVICES, CORE | | Disease <15 mL/min/1.73 sq m Kidney Failure | | | Estimated GFR greater than 60 mL/min/1.73 sq m is of limited clinical | | | value. The MDRD equation is not valid in the following situations: - | | | Patients under 18 years of [...] | + + + + + | [facility] | [address] | [place] [address] | | | SERVICES, CORE | [address] | | | + + + + + CARDIOLOGY (07/25/2019 12:00 AM PDT) + + + | Narrative | Performed At | + + + | | | + + + CARDIOLOGY (07/25/2019 12:00 AM PDT) + + + | Narrative | Performed At | + + + | | | + + + CARDIOLOGY (07/25/2019 12:00 AM PDT) + + + | Narrative | Performed At | + + + | | | + + + CARDIOLOGY (07/25/2019 12:00 AM PDT) + + + | Narrative | Performed At | + + + | | | + + + CAPILLARY BLOOD GLUCOSE (NO CHG), POC (07/24/2019 10:05 PM PDT) + +-------+ + + + | Component | Value | Ref Range | Performed | Pathologist | | | | | At | Signature | + +-------+ + + + | BLOOD | 73 | 70 - 99 mg/dL | [facility] - | | | GLUCOSE, | | | [facility] | | | POC | | | [facility] | | | | | | OF CARE | | | | | | TESTS | | + +-------+ + + + + + | Specimen | + + | Blood | + + + + + + + | Performing | Address | City/State/Zipcode | Phone Number | | Organization | | | | + + + + + | [facility] | [address] | [place], [place] | | | [facility] | [address] | [address] | | | TESTS | | | | + + + + + CAPILLARY BLOOD GLUCOSE (NO CHG), POC (07/24/2019 6:42 PM PDT) + +---------+ + + + | Component | Value | Ref Range | Performed | Pathologist | | | | | At | Signature | + +---------+ + + + | BLOOD | 101 (H) | 70 - 99 mg/dL | [facility] | | | GLUCOSE, | | | [facility] | | | POC | | | [place] | | | | | | OF CARE | | | | | | TESTS | | + +---------+ + + + + + | Specimen | + + | Blood | + + + + + + + | Performing | Address | City/State/Zipcode | Phone Number | | Organization | | | | + + + + + | [facility] | [address] | [place], [place] | | | [facility] | [address] | [address] | | | TESTS | | | | + + + + + CAPILLARY BLOOD GLUCOSE (NO CHG), POC (07/24/2019 2:07 PM PDT) + +---------+ + + + | Component | Value | Ref Range | Performed | Pathologist | | | | | At | Signature | + +---------+ + + + | BLOOD | 135 (H) | 70 - 99 mg/dL | [facility] - | | | GLUCOSE, | | | [facility] | | | POC | | | [facility] | | | | | | OF CARE | | | | | | TESTS | | + +---------+ + + + + + | Specimen | + + | Blood | + + + + + + + | Performing | Address | City/State/Zipcode | Phone Number | | Organization | | | | + + + + + | [facility] | [address] | [place], [place] | | | [facility] | [address] | [address] | | | TESTS | | | | + + + + + CAPILLARY BLOOD GLUCOSE (NO CHG), POC (07/24/2019 7:33 AM PDT) + +---------+ + + + | Component | Value | Ref Range | Performed | Pathologist | | | | | At | Signature | + +---------+ + + + | BLOOD | 150 (H) | 70 - 99 mg/dL | [facility] - | | | GLUCOSE, | | | [facility] | | | POC | | | [facility] | | | | | | OF CARE | | | | | | TESTS | | + +---------+ + + + + + | Specimen | + + | Blood | + + + + + + + | Performing | Address | City/State/Zipcode | Phone Number | | Organization | | | | + + + + + | [facility] | [address] | [place], [place] | | | [facility] | [address] | [address] | | | TESTS | | | | + + + + + CBC (HEMOGRAM) ONLY (07/24/2019 6:04 AM PDT) + + + + + + | Component | Value | Ref Range | Performed | Pathologist | | | | | At | Signature | + + + + + + | WHITE CELL | 7.03 | 3.50 - 10.80 | [facility] | | | COUNT | | K/cu mm | LABORATORY | | | | | | SERVICES, | | | | | | CORE | | + + + + + + | RED CELL | 2.66 (L) | 4.50 - 6.00 | [facility] | | | COUNT | | M/cu mm | LABORATORY | | | | | | SERVICES, | | | | | | CORE | | + + + + + + | HEMOGLOBIN | 9.3 (L) | 13.5 - 17.5 | [facility] | | | | | g/dL | LABORATORY | | | | | | SERVICES, | | | | | | CORE | | + + + + + + | HEMATOCRIT | 27.3 (L) | 41.0 - 53.0 % | [facility] | | | | | | LABORATORY | | | | | | SERVICES, | | | | | | CORE | | + + + + + + | MCV | 102.6 (H) | 80.0 - 100.0 fL | [facility] | | | | | | LABORATORY | | | | | | SERVICES, | | | | | | CORE | | + + + + + + | MCHC | 34.1 | 32.0 - 36.0 | [facility] | | | | | g/dL | LABORATORY | | | | | | SERVICES, | | | | | | CORE | | + + + + + + | RDW SD | 54.7 (H) | 35.1 - 46.3 fL | [facility] | | | | | | LABORATORY | | | | | | SERVICES, | | | | | | CORE | | + + + + + + | PLATELET | 46 (L) | 150 - 400 K/cu | [facility] | | | COUNT | | mm | LABORATORY | | | | | | SERVICES, | | | | | | CORE | | + + + + + + | MPV | 10.2 | 9.7 - 12.3 fL | [facility] | | | | | | LABORATORY | | | | | | SERVICES, | | | | | | CORE | | + + + + + + | NRBC% | 0.4 (H) | 0.0 - 0.3 % | [facility] | | | | | | LABORATORY | | | | | | SERVICES, | | | | | | CORE | | + + + + + + | NRBC# | 0.03 (H) | 0.00 - 0.02 | [facility] | [...] | + + + + + | [facility] | [address] | [place] [address] | | | SERVICES, CORE | [address] | | | + + + + + COAGULOPATHY PANEL (INR,APTT,FIBRINOGEN) (07/24/2019 6:04 AM PDT) + + + + + + | Component | Value | Ref Range | Performed | Pathologist | | | | | At | Signature | + + + + + + | INR | 3.49 (H) | 0.90 - 1.20 INR | [facility] | | | | | | LABORATORY | | | | | | SERVICES, | | | | | | CORE | | + + + + + + | APTT | 67.3 (H) | 26.0 - 36.0 | [facility] | | | | | seconds | LABORATORY | | | | | | SERVICES, | | | | | | CORE | | + + + + + + | FIBRINOGEN | 118 (L) | 150 - 450 mg/dL | [facility] | | | LEVEL | | | LABORATORY | | | [...] with mech. valves (2.5 - 3.5) INR APTT values for | SERVICES, CORE | | monitoring heparin therapy may be affected by specimens processed >1 | | | hour after collection. APTT Therapeutic Range: | | | (75 - 120) sec Heparin levels of 0.35 - 0.7 U/mL | | + + + + + + + + | Performing | Address | City/State/Zipcode | Phone Number | | Organization | | | | + + + + + | [facility] | [address] | [place] [address] | | | SERVICES, CORE | [address] | | | + + + + + COMPLETE METABOLIC SET (NA,K,CL,CO2,BUN,CREAT,GLUC,CA,AST,ALT,BILI TOTAL,ALK PHOS,ALB,PROT TOTAL) (07/24/2019 6:04 AM PDT) + + + + + + | Component | Value | Ref Range | Performed | Pathologist | | | | | At | Signature | + + + + + + | GLUCOSE, | 159 (H) | 70 - 99 mg/dL | [facility] | | | PLASMA | | | LABORATORY | | | (LAB) | | | SERVICES, | | | | | | CORE | | + + + + + + | BUN, PLASMA | 34 (H) | 6 - 20 mg/dL | [facility] | | | (LAB) | | | LABORATORY | | | | | | SERVICES, | | | | | | CORE | | + + + + + + | CREATININE | 1.08 | 0.70 - 1.30 | [facility] | | | PLASMA | | mg/dL | LABORATORY | | | (LAB) | | | SERVICES, | | | | | | CORE | | + + + + + + | EGFR | >60 | >60 mL/min | [facility] | | | - | | | LABORATORY | | | [place] | | | SERVICES, | | | | | | CORE | | + + + + + + | EGFR NON | >60 | >60 mL/min | [facility] | | | -JARRED | | | LABORATORY | | | [...] + + + + | POTASSIUM, | 4.0 | 3.4 - 5.0 | [facility] | [...] + + + + | CALCIUM, | 9.5 | 8.6 - 10.2 | [facility] | | | PLASMA | | mg/dL | LABORATORY | | | (LAB) | | | SERVICES, | | | | | | CORE | | + + + + + + | CALCIUM(ALB | 10.0 | 8.6 - 10.2 | [facility] | | | CORRECTED) | | mg/dL | LABORATORY | | | | | | SERVICES, | | | | | | CORE | | + + + + + + | BILIRUBIN | 16.9 (H) | 0.3 - 1.2 mg/dL | [facility] | | | TOTAL | | | LABORATORY | | | | | | SERVICES, | | | | | | CORE | | + + + + + + | TOTAL | 6.7 | 6.4 - 8.2 g/dL | [facility] | | | PROTEIN, | | | LABORATORY | | | PLASMA | | | SERVICES, | | | (LAB) | | | CORE | | + + + + + + | ALBUMIN, | 3.4 (L) | 3.5 - 4.7 g/dL | [facility] | | | PLASMA | | | LABORATORY | | | (LAB) | | | SERVICES, | | | | | | CORE | | + + + + + + | ALK PHOS | 123 | 53 - 128 U/L | [facility] | | | | | | LABORATORY | | | | | | SERVICES, | | | | | | CORE | | + + + + + + | AST(SGOT) | 86 (H) | <=41 U/L | [facility] | | | | | | LABORATORY | | | | | | SERVICES, | | | | | | CORE | | + + + + + + | ALT (SGPT) | 43 | <=60 U/L | [facility] | | | | | | LABORATORY | | | | | | SERVICES, | | | | | | CORE | | + + + + + + | ANION GAP | 8 | 4 - 11 mmol/L | [facility] | | | | | | LABORATORY | | | | | | SERVICES, | | | | | | CORE | | + + + + + + | ANION | 9 | 4 - 11 mmol/L | [facility] [...] MDRD equation recommended by the National | [facility] | | Kidney Disease Education Program. Estimated GFR Interpretive | LABORATORY | | Information: <60 mL/min/1.73 sq m Chronic Kidney | SERVICES, CORE | | Disease <15 mL/min/1.73 sq m Kidney Failure | | | Estimated GFR greater than 60 mL/min/1.73 sq m is of limited clinical | | | value. The MDRD equation is not valid in the following situations: - | | | Patients under 18 years of [...] | + + + + + | [facility] [facility] | [address] | [place] [address] | | | SERVICES, CORE | [address] | | | + + + + + CAPILLARY BLOOD GLUCOSE (NO CHG), POC (07/23/2019 11:32 PM PDT) + +---------+ + + + | Component | Value | Ref Range | Performed | Pathologist | | | | | At | Signature | + +---------+ + + + | BLOOD | 110 (H) | 70 - 99 mg/dL | [facility] - | | | GLUCOSE, | | | [facility] | | | POC | | | [facility] | | | | | | OF CARE | | | | | | TESTS | | + +---------+ + + + + + | Specimen | + + | Blood | + + + + + + + | Performing | Address | City/State/Zipcode | Phone Number | | Organization | | | | + + + + + | [facility] | [address] | [place], [place] | | | [facility] [place] | [facility] | [address] | | | TESTS | | | | + + + + + CAPILLARY BLOOD GLUCOSE (NO CHG), POC (07/23/2019 7:43 PM PDT) + +---------+ + + + | Component | Value | Ref Range | Performed | Pathologist | | | | | At | Signature | + +---------+ + + + | BLOOD | 152 (H) | 70 - 99 mg/dL | [facility] - | | | GLUCOSE, | | | [facility] | | | POC | | | [place] | | | | | | OF CARE | | | | | | TESTS | | + +---------+ + + + + + | Specimen | + + | Blood | + + + + + + + | Performing | Address | City/State/Zipcode | Phone Number | | Organization | | | | + + + + + | [facility] | [address] | [place], [place] | | | [facility] | [address] | [address] | | | TESTS | | | | + + + + + CBC (HEMOGRAM) ONLY (07/23/2019 4:23 PM PDT) + + + + + + | Component | Value | Ref Range | Performed | Pathologist | | | | | At | Signature | + + + + + + | WHITE CELL | 7.91 | 3.50 - 10.80 | [facility] | | | COUNT | | K/cu mm | LABORATORY | | | | | | SERVICES, | | | | | | CORE | | + + + + + + | RED CELL | 2.65 (L) | 4.50 - 6.00 | [facility] | | | COUNT | | M/cu mm | LABORATORY | | | | | | SERVICES, | | | | | | CORE | | + + + + + + | HEMOGLOBIN | 9.4 (L) | 13.5 - 17.5 | [facility] | | | | | g/dL | LABORATORY | | | | | | SERVICES, | | | | | | CORE | | + + + + + + | HEMATOCRIT | 26.9 (L) | 41.0 - 53.0 % | [facility] | | | | | | LABORATORY | | | | | | SERVICES, | | | | | | CORE | | + + + + + + | MCV | 101.5 (H) | 80.0 - 100.0 fL | [facility] | | | | | | LABORATORY | | | | | | SERVICES, | | | | | | CORE | | + + + + + + | MCHC | 34.9 | 32.0 - 36.0 | [facility] | | | | | g/dL | LABORATORY | | | | | | SERVICES, | | | | | | CORE | | + + + + + + | RDW SD | 54.3 (H) | 35.1 - 46.3 fL | [facility] | | | | | | LABORATORY | | | | | | SERVICES, | | | | | | CORE | | + + + + + + | PLATELET | 48 (L)Comment: | 150 - 400 K/cu | [facility] | | | COUNT | Macroplatelets present. | mm | LABORATORY | | | | | | SERVICES, | | | | | | CORE | | + + + + + + | MPV | 10.7 | 9.7 - 12.3 fL | [facility] [...] | + + + + + | [facility] | [address] | [place] [address] | | | SERVICES, CORE | [address] | | | + + + + + CAPILLARY BLOOD GLUCOSE (NO CHG), POC (07/23/2019 1:26 PM PDT) + +---------+ + + + | Component | Value | Ref Range | Performed | Pathologist | | | | | At | Signature | + +---------+ + + + | BLOOD | 153 (H) | 70 - 99 mg/dL | [facility] - | | | GLUCOSE, | | | [facility] | | | POC | | | [facility] | | | | | | OF CARE | | | | | | TESTS | | + +---------+ + + + + + | Specimen | + + | Blood | + + + + + + + | Performing | Address | City/State/Zipcode | Phone Number | | Organization | | | | + + + + + | [facility] | [address] | [place], [place] | | | [facility] | [address] | [address] | | | TESTS | | | | + + + + + 12 LEAD ECG (07/23/2019 9:08 AM PDT) + + + + + + | Component | Value | Ref Range | Performed | Pathologist | | | | | At | Signature | + + + + + + | VENTRICULAR | 150 | bpm | [facility] | | | RATE | | | OF | | | | | | CARDIOLOGY | | + + + + + + | ATRIAL RATE | 152 | ms | [facility] | | | | | | OF | | | | | | CARDIOLOGY | | + + + + + + | P-R | 82 | ms | [facility] | | | INTERVAL | | | OF | | | | | | CARDIOLOGY | | + + + + + + | P AXIS | 195 | deg | [facility] | | | | | | OF | | | | | | CARDIOLOGY | | + + + + + + | QRS | 185 | ms | [facility] | | | DURATION | | | OF | | | | | | CARDIOLOGY | | + + + + + + | QT | 349 | ms | [facility] | | | | | | OF | | | | | | CARDIOLOGY | | + + + + + + | QTC-PREETTT | 552 | ms | [facility] | | | | | | OF | | | | | | CARDIOLOGY | | + + + + + + | R AXIS | 78 | deg | [facility] | | | | | | OF | | | | | | CARDIOLOGY | | + + + + + + | T AXIS | 62 | deg | [facility] | | | | | | OF | | | | | | CARDIOLOGY | | + + + + + + | ECG | Sinus or ectopic atrial | | [facility] | | | IMPRESSION | tachycardia | | OF | | | | | | CARDIOLOGY | | + + + + + + | ECG | Right bundle branch | | [facility] | | | IMPRESSION | block- ABNORMAL ECG - | | OF | | | | | | CARDIOLOGY | | + + + + + + | ECG | Electronically signed | | [facility] | | | IMPRESSION | by: DAVID HOFFMAN | | OF | | | | 07-23-2019 09:48:27 | | CARDIOLOGY | | + + [...] + + | [facility] | [address] | [place], [place] | | | CARDIOLOGY | [address] | [address] | | + + + + + CAPILLARY BLOOD GLUCOSE (NO CHG), POC (07/23/2019 8:01 AM PDT) + +---------+ + + + | Component | Value | Ref Range | Performed | Pathologist | | | | | At | Signature | + +---------+ + + + | BLOOD | 177 (H) | 70 - 99 mg/dL | [facility] - | | | GLUCOSE, | | | [facility] | | | POC | | | [facility] | | | | | | OF CARE | | | | | | TESTS | | + +---------+ + + + + + | Specimen | + + | Blood | + + + + + + + | Performing | Address | City/State/Zipcode | Phone Number | | Organization | | | | + + + + + | [facility] | [address] | [place], [place] | | | [place] [facility] | [address] | [address] | | | TESTS | | | | + + + + + CBC (HEMOGRAM) ONLY (07/23/2019 6:11 AM PDT) + + + + + + | Component | Value | Ref Range | Performed | Pathologist | | | | | At | Signature | + + + + + + | WHITE CELL | 6.19 | 3.50 - 10.80 | [facility] | | | COUNT | | K/cu mm | LABORATORY | | | | | | SERVICES, | | | | | | CORE | | + + + + + + | RED CELL | 2.54 (L) | 4.50 - 6.00 | [facility] [...] + + + + | HEMATOCRIT | 25.6 (L) | 41.0 - 53.0 % | [...] + + + + | MCHC | 34.8 | 32.0 - 36.0 | [facility] | | | | | g/dL | LABORATORY | | | | | | SERVICES, | | | | | | CORE | | + + + + + + | RDW SD | 53.2 (H) | 35.1 - 46.3 fL | [facility] | | | | | | LABORATORY | | | | | | SERVICES, | | | | | | CORE | | + + + + + + | PLATELET | 38 (L) | 150 - 400 K/cu | [facility] | | | COUNT | | mm | LABORATORY | | | | | | SERVICES, | | | | | | CORE | | + + + + + + | MPV | 10.6 | 9.7 - 12.3 fL | [facility] [...] + | [facility] | [address] | [place] [address] | | | SERVICES, CORE | [address] | | | + + + + + COAGULOPATHY PANEL (INR,APTT,FIBRINOGEN) (07/23/2019 6:11 AM PDT) + + + + + + | Component | Value | Ref Range | Performed | Pathologist | | | | | At | Signature | + + + + + + | INR | 4.11 (H) | 0.90 - 1.20 INR | [facility] | | | | | | LABORATORY | | | | | | SERVICES, | | | | | | CORE | | + + + + + + | APTT | 74.0 (H) | 26.0 - 36.0 | [facility] | | | | | seconds | LABORATORY | | | | | | SERVICES, | | | | | | CORE | | + + + + + + | FIBRINOGEN | 113 (L) | 150 - 450 mg/dL | [facility] | | | LEVEL | | | LABORATORY | | | [...] with mech. valves (2.5 - 3.5) INR APTT values for | SERVICES, CORE | | monitoring heparin therapy may be affected by specimens processed >1 | | | hour after collection. APTT Therapeutic Range: | | | (75 - 120) sec Heparin levels of 0.35 - 0.7 U/mL | | + + + + + + + + | Performing | Address | City/State/Zipcode | Phone Number | | Organization | | | | + + + + + | [facility] | [address] | [place] [address] | | | SERVICES, CORE | [address] | | | + + + + + COMPLETE METABOLIC SET (NA,K,CL,CO2,BUN,CREAT,GLUC,CA,AST,ALT,BILI TOTAL,ALK PHOS,ALB,PROT TOTAL) (07/23/2019 6:11 AM PDT) + + + + + + | Component | Value | Ref Range | Performed | Pathologist | | | | | At | Signature | + + + + + + | GLUCOSE, | 164 (H) | 70 - 99 mg/dL | [facility] | | | PLASMA | | | LABORATORY | | | (LAB) | | | SERVICES, | | | | | | CORE | | + + + + + + | BUN, PLASMA | 41 (H) | 6 - 20 mg/dL | [facility] | | | (LAB) | | | LABORATORY | | | | | | SERVICES, | | | | | | CORE | | + + + + + + | CREATININE | 1.28 | 0.70 - 1.30 | [facility] | | | PLASMA | | mg/dL | LABORATORY | | | (LAB) | | | SERVICES, | | | | | | CORE | | + + + + + + | EGFR | >60 | >60 mL/min | [facility] | | | - | | | LABORATORY | | | TURK[place] | | | SERVICES, | | | | | | CORE | | + + + + + + | EGFR NON | 59 (L) | >60 mL/min | [facility] | | | -JARRED | | | LABORATORY | | | RICAN | | | SERVICES, | | | | | | CORE | | + + + + + + | SODIUM, | 135 (L) | 136 - 145 | [facility] | | | PLASMA | | mmol/L | LABORATORY | | | (LAB) | | | SERVICES, | | | | | | CORE | | + + + + + + | POTASSIUM, | 3.9 | 3.4 - 5.0 | [facility] | | | PLASMA | | mmol/L | LABORATORY | | | (LAB) | | | SERVICES, | | | | | | CORE | | + + + + + + | CHLORIDE, | 105 | 97 - 108 mmol/L | [facility] [...] + + + + | CALCIUM, | 9.5 | 8.6 - 10.2 | [facility] | | | PLASMA | | mg/dL | LABORATORY | | | (LAB) | | | SERVICES, | | | | | | CORE | | + + + + + + | CALCIUM(ALB | 10.0 | 8.6 - 10.2 | [facility] | | | CORRECTED) | | mg/dL | LABORATORY | | | | | | SERVICES, | | | | | | CORE | | + + + + + + | BILIRUBIN | 13.9 (H) | 0.3 - 1.2 mg/dL | [facility] | | | TOTAL | | | LABORATORY | | | | | | SERVICES, | | | | | | CORE | | + + + + + + | TOTAL | 6.8 | 6.4 - 8.2 g/dL | [facility] | | | PROTEIN, | | | LABORATORY | | | PLASMA | | | SERVICES, | | | (LAB) | | | CORE | | + + + + + + | ALBUMIN, | 3.4 (L) | 3.5 - 4.7 g/dL | [facility] | | | PLASMA | | | LABORATORY | | | (LAB) | | | SERVICES, | | | | | | CORE | | + + + + + + | ALK PHOS | 138 (H) | 53 - 128 U/L | [facility] | | | | | | LABORATORY | | | | | | SERVICES, | | | | | | CORE | | + + + + + + | AST(SGOT) | 93 (H) | <=41 U/L | [facility] | | | | | | LABORATORY | | | | | | SERVICES, | | | | | | CORE | | + + + + + + | ALT (SGPT) | 46 | <=60 U/L | [facility] | | | | | | LABORATORY | | | | | | SERVICES, | | | | | | CORE | | + + + + + + | ANION GAP | 7 | 4 - 11 mmol/L | [facility] | | | | | | LABORATORY | | | | | | SERVICES, | | | | | | CORE | | + + + + + + | ANION | 8 | 4 - 11 mmol/L | [facility] [...] valid in the following situations: - | | | Patients under 18 years of [...] | + + + + + | [facility] | [address] | [place] [address] | | | SERVICES, ARTIS | [address] | | | + + + + + CARDIOLOGY (07/23/2019 12:00 AM PDT) + + + | Narrative | Performed At | + + + | | | + + + CARDIOLOGY (07/23/2019 12:00 AM PDT) + + + | Narrative | Performed At | + + + | | | + + + CARDIOLOGY (07/23/2019 12:00 AM PDT) + + + | Narrative | Performed At | + + + | | | + + + CARDIOLOGY (07/23/2019 12:00 AM PDT) + + + | Narrative | Performed At | + + + | | | + + + CARDIOLOGY (07/23/2019 12:00 AM PDT) + + + | Narrative | Performed At | + + + | | | + + + CAPILLARY BLOOD GLUCOSE (NO CHG), POC (07/22/2019 11:25 PM PDT) + +---------+ + + + | Component | Value | Ref Range | Performed | Pathologist | | | | | At | Signature | + +---------+ + + + | BLOOD | 188 (H) | 70 - 99 mg/dL | [facility] - | | | GLUCOSE, | | | [facility] | | | POC | | | [facility] | | | | | | OF CARE | | | | | | TESTS | | + +---------+ + + + + + | Specimen | + + | Blood | + + + + + + + | Performing | Address | City/State/Zipcode | Phone Number | | Organization | | | | + + + + + | [facility] | [address] | [place], [place] | | | [facility] | [address] | [address] | | | TESTS | | | | + + + + + CAPILLARY BLOOD GLUCOSE (NO CHG), POC (07/22/2019 10:23 PM PDT) + +---------+ + + + | Component | Value | Ref Range | Performed | Pathologist | | | | | At | Signature | + +---------+ + + + | BLOOD | 180 (H) | 70 - 99 mg/dL | [facility] - | | | GLUCOSE, | | | [facility] | | | POC | | | [facility] | | | | | | OF CARE | | | | | | TESTS | | + +---------+ + + + + + | Specimen | + + | Blood | + + + + + + + | Performing | Address | City/State/Zipcode | Phone Number | | Organization | | | | + + + + + | [facility] | [address] | [place], [place] | | | [facility] | [address] | [address] | | | TESTS | | | | + + + + + CAPILLARY BLOOD GLUCOSE (NO CHG), POC (07/22/2019 7:12 PM PDT) + +---------+ + + + | Component | Value | Ref Range | Performed | Pathologist | | | | | At | Signature | + +---------+ + + + | BLOOD | 163 (H) | 70 - 99 mg/dL | [facility] - | | | GLUCOSE, | | | [facility] | | | POC | | | [facility] | | | | | | OF CARE | | | | | | TESTS | | + +---------+ + + + + + | Specimen | + + | Blood | + + + + + + + | Performing | Address | City/State/Zipcode | Phone Number | | Organization | | | | + + + + + | [facility] | [address] | [place], [place] | | | [facility] | [address] | [address] | | | TESTS | | | | + + + + + CAPILLARY BLOOD GLUCOSE (NO CHG), POC (07/22/2019 12:04 PM PDT) + +---------+ + + + | Component | Value | Ref Range | Performed | Pathologist | | | | | At | Signature | + +---------+ + + + | BLOOD | 162 (H) | 70 - 99 mg/dL | [facility] | | | GLUCOSE, | | | [facility] | | | POC | | | [facility] | | | | | | OF CARE | | | | | | TESTS | | + +---------+ + + + + + | Specimen | + + | Blood | + + + + + + + | Performing | Address | City/State/Zipcode | Phone Number | | Organization | | | | + + + + + | [facility] | [address] | [place], [place] | | | [facility] | [address] | [address] | | | TESTS | | | | + + + + + CAPILLARY BLOOD GLUCOSE (NO CHG), POC (07/22/2019 8:36 AM PDT) + +---------+ + + + | Component | Value | Ref Range | Performed | Pathologist | | | | | At | Signature | + +---------+ + + + | BLOOD | 179 (H) | 70 - 99 mg/dL | [facility] - | | | GLUCOSE, | | | [place] | | | POC | | | [facility] | | | | | | OF CARE | | | | | | TESTS | | + +---------+ + + + + + | Specimen | + + | Blood | + + + + + + + | Performing | Address | City/State/Zipcode | Phone Number | | Organization | | | | + + + + + | [facility] | [address] | [place], [place] | | | [facility] | [address] | [address] | | | TESTS | | | | + + + + + MAGNESIUM, PLASMA (07/22/2019 5:29 AM PDT) + +-------+ + + + | Component | Value | Ref Range | Performed | Pathologist | | | | | At | Signature | + +-------+ + + + | MAGNESIUM,P | 1.8 | 1.6 - 2.6 mg/dL | [facility] [...] + | [facility] | [address] | [place] [address] | | | SERVICES, CORE | [address] | | | + + + + + CBC (HEMOGRAM) ONLY (07/22/2019 5:29 AM PDT) + + + + + + | Component | Value | Ref Range | Performed | Pathologist | | | | | At | Signature | + + + + + + | WHITE CELL | 4.77 | 3.50 - 10.80 | [facility] | | | COUNT | | K/cu mm | LABORATORY | | | | | | SERVICES, | | | | | | CORE | | + + + + + + | RED CELL | 2.27 (L) | 4.50 - 6.00 | [facility] | | | COUNT | | M/cu mm | LABORATORY | | | | | | SERVICES, | | | | | | CORE | | + + + + + + | HEMOGLOBIN | 8.0 (L) | 13.5 - 17.5 | [facility] | | | | | g/dL | LABORATORY | | | | | | SERVICES, | | | | | | CORE | | + + + + + + | HEMATOCRIT | 22.9 (L) | 41.0 - 53.0 % | [facility] | | | | | | LABORATORY | | | | | | SERVICES, | | | | | | CORE | | + + + + + + | MCV | 100.9 (H) | 80.0 - 100.0 fL | [facility] | | | | | | LABORATORY | | | | | | SERVICES, | | | | | | CORE | | + + + + + + | MCHC | 34.9 | 32.0 - 36.0 | [facility] | | | | | g/dL | LABORATORY | | | | | | SERVICES, | | | | | | CORE | | + + + + + + | RDW SD | 53.1 (H) | 35.1 - 46.3 fL | [facility] | | | | | | LABORATORY | | | | | | SERVICES, | | | | | | CORE | | + + + + + + | PLATELET | 28 (L) | 150 - 400 K/cu | [facility] | | | COUNT | | mm | LABORATORY | | | | | | SERVICES, | | | | | | CORE | | + + + + + + | MPV | 10.4 | 9.7 - 12.3 fL | [facility] | | | | | | LABORATORY | | | | | | SERVICES, | | | | | | CORE | | + + + + + + | NRBC% | 0.4 (H) | 0.0 - 0.3 % | [facility] | | | | | | LABORATORY | | | | | | SERVICES, | | | | | | CORE | | + + + + + + | NRBC# | 0.02 | 0.00 - 0.02 | [facility] | [...] + | [facility] | [address] | [place] [address] | | | SERVICES, CORE | [address] | | | + + + + + BASIC METABOLIC SET (NA, K, CL, TCO2, BUN, CR, GLU, CA) (07/22/2019 5:29 AM PDT) + + + + + + | Component | Value | Ref Range | Performed | Pathologist | | | | | At | Signature | + + + + + + | GLUCOSE, | 221 (H) | 70 - 99 mg/dL | [facility] | | | PLASMA | | | LABORATORY | | | (LAB) | | | SERVICES, | | | | | | CORE | | + + + + + + | BUN, PLASMA | 38 (H) | 6 - 20 mg/dL | [facility] | | | (LAB) | | | LABORATORY | | | | | | SERVICES, | | | | | | CORE | | + + + + + + | CREATININE | 1.56 (H) | 0.70 - 1.30 | [facility] | | | PLASMA | | mg/dL | LABORATORY | | | (LAB) | | | SERVICES, | | | | | | CORE | | + + + + + + | EGFR | 56 (L) | >60 mL/min | [facility] | | | - | | | LABORATORY | | | TURK[place] | | | SERVICES, | | | | | | CORE | | + + + + + + | EGFR NON | 47 (L) | >60 mL/min | [facility] | | | -JARRED | | | LABORATORY | | | RICAN | | | SERVICES, | | | | | | CORE | | + + + + + + | SODIUM, | 133 (L) | 136 - 145 | [facility] | | | PLASMA | | mmol/L | LABORATORY | | | (LAB) | | | SERVICES, | | | | | | CORE | | + + + + + + | POTASSIUM, | 3.7 | 3.4 - 5.0 | [facility] | [...] + + + | TOTAL CO2, | 24 | 21 - 32 mmol/L | [facility] | | | PLASMA | | | LABORATORY | | | (LAB) | | | SERVICES, | | | | | | CORE | | + + + + + + | CALCIUM, | 8.9 | 8.6 - 10.2 | [facility] | | | PLASMA | | mg/dL | LABORATORY | | | (LAB) | | | SERVICES, | | | | | | CORE | | + + + + + + | ANION GAP | 7 | 4 - 11 mmol/L | [facility] [...] MDRD equation recommended by the National | [facility] | | Kidney Disease Education Program. Estimated GFR Interpretive | LABORATORY | | Information: <60 mL/min/1.73 sq m Chronic Kidney | SERVICES, [facility] | | Disease <15 mL/min/1.73 sq m Kidney Failure | | | Estimated GFR greater than 60 mL/min/1.73 sq m is of limited clinical | | | value. The MDRD equation is not valid in the following situations: - | | | Patients under 18 years of [...] | + + + + + | [facility] | [address] | [place] [address] | | | [place] | [address] | | | + + + + + CARDIOLOGY (07/22/2019 12:00 AM PDT) + + + | Narrative | Performed At | + + + | | | + + + CAPILLARY BLOOD GLUCOSE (NO CHG), POC (07/21/2019 9:18 PM PDT) + +---------+ + + + | Component | Value | Ref Range | Performed | Pathologist | | | | | At | Signature | + +---------+ + + + | BLOOD | 205 (H) | 70 - 99 mg/dL | [facility] - | | | GLUCOSE, | | | [facility] | | | POC | | | [facility] | | | | | | OF CARE | | | | | | TESTS | | + +---------+ + + + + + | Specimen | + + | Blood | + + + + + + + | Performing | Address | City/State/Zipcode | Phone Number | | Organization | | | | + + + + + | [facility] | [address] | [place], [place] | | | [facility] [place] | [facility] | [address] | | | TESTS | | | | + + + + + CBC (HEMOGRAM) ONLY (07/21/2019 4:43 PM PDT) + + + + + + | Component | Value | Ref Range | Performed | Pathologist | | | | | At | Signature | + + + + + + | WHITE CELL | 5.29 | 3.50 - 10.80 | [facility] | | | COUNT | | K/cu mm | LABORATORY | | | | | | SERVICES, | | | | | | CORE | | + + + + + + | RED CELL | 2.38 (L) | 4.50 - 6.00 | [facility] | | | COUNT | | M/cu mm | LABORATORY | | | | | | SERVICES, | | | | | | CORE | | + + + + + + | HEMOGLOBIN | 8.5 (L) | 13.5 - 17.5 | [facility] | | | | | g/dL | LABORATORY | | | | | | SERVICES, | | | | | | CORE | | + + + + + + | HEMATOCRIT | 24.1 (L) | 41.0 - 53.0 % | [facility] | | | | | | LABORATORY | | | | | | SERVICES, | | | | | | CORE | | + + + + + + | MCV | 101.3 (H) | 80.0 - 100.0 fL | [facility] | | | | | | LABORATORY | | | | | | SERVICES, | | | | | | CORE | | + + + + + + | MCHC | 35.3 | 32.0 - 36.0 | [facility] | | | | | g/dL | LABORATORY | | | | | | SERVICES, | | | | | | CORE | | + + + + + + | RDW SD | 53.2 (H) | 35.1 - 46.3 fL | [facility] | | | | | | LABORATORY | | | | | | SERVICES, | | | | | | CORE | | + + + + + + | PLATELET | 27 (L)Comment: Giant | 150 - 400 K/cu | [facility] | | | COUNT | platelets present. | mm | LABORATORY | | | | Macroplatelets present. | | SERVICES, | | | | | | CORE | | + + + + + + | MPV | 10.9 | 9.7 - 12.3 fL | [facility] [...] + + + + + | [facility] | [address] | [place] [address] | | | SERVICES, CORE | [address] | | | + + + + + CAPILLARY BLOOD GLUCOSE (NO CHG), POC (07/21/2019 4:10 PM PDT) + +---------+ + + + | Component | Value | Ref Range | Performed | Pathologist | | | | | At | Signature | + +---------+ + + + | BLOOD | 246 (H) | 70 - 99 mg/dL | [facility] | | | GLUCOSE, | | | [facility] | | | POC | | | [facility] | | | | | | [facility] | | | | | | TESTS | | + +---------+ + + + + + | Specimen | + + | Blood | + + + + + + + | Performing | Address | City/State/Zipcode | Phone Number | | Organization | | | | + + + + + | [facility] | [address] | [place], [place] | | | [facility] | [address] | [address] | | | TESTS | | | | + + + + + CAPILLARY BLOOD GLUCOSE (NO CHG), POC (07/21/2019 11:56 AM PDT) + +---------+ + + + | Component | Value | Ref Range | Performed | Pathologist | | | | | At | Signature | + +---------+ + + + | BLOOD | 122 (H) | 70 - 99 mg/dL | [facility] - | | | GLUCOSE, | | | [facility] | | | POC | | | [facility] | | | | | | OF CARE | | | | | | TESTS | | + +---------+ + + + + + | Specimen | + + | Blood | + + + + + + + | Performing | Address | City/State/Zipcode | Phone Number | | Organization | | | | + + + + + | [facility] | [address] | [place], [place] | | | [facility] | [address] | [phone] | | | TESTS | | | | + + + + + CAPILLARY BLOOD GLUCOSE (NO CHG), POC (07/21/2019 7:52 AM PDT) + +---------+ + + + | Component | Value | Ref Range | Performed | Pathologist | | | | | At | Signature | + +---------+ + + + | BLOOD | 169 (H) | 70 - 99 mg/dL | [facility] - | | | GLUCOSE, | | | [facility] | | | POC | | | [facility] | | | | | | OF [facility]ARE | | | | | | TESTS | | + +---------+ + + + + + | Specimen | + + | Blood | + + + + + + + | Performing | Address | City/State/Zipcode | Phone Number | | Organization | | | | + + + + + | [facility] | [address] | [place] | | | [facility] | [address] | [address] | | | TESTS | | | | + + + + + CBC AND AUTO DIFF (07/21/2019 3:44 AM PDT) + + + + + + | Component | Value | Ref Range | Performed | Pathologist | | | | | At | Signature | + + + + + + | WHITE CELL | 3.80 | 3.50 - 10.80 | [facility] | | | COUNT | | K/cu mm | LABORATORY | | | | | | SERVICES, | | | | | | CORE | | + + + + + + | RED CELL | 2.10 (L) | 4.50 - 6.00 | [facility] | | | COUNT | | M/cu mm | LABORATORY | | | | | | SERVICES, | | | | | | CORE | | + + + + + + | HEMOGLOBIN | 7.4 (L) | 13.5 - 17.5 | [facility] | | | | | g/dL | LABORATORY | | | | | | SERVICES, | | | | | | CORE | | + + + + + + | HEMATOCRIT | 21.3 (L) | 41.0 - 53.0 % | [facility] | | | | | | LABORATORY | | | | | | SERVICES, | | | | | | CORE | | + + + + + + | MCV | 101.4 (H) | 80.0 - 100.0 fL | [facility] | | | | | | LABORATORY | | | | | | SERVICES, | | | | | | CORE | | + + + + + + | MCHC | 34.7 | 32.0 - 36.0 | [facility] | | | | | g/dL | LABORATORY | | | | | | SERVICES, | | | | | | CORE | | + + + + + + | RDW SD | 53.0 (H) | 35.1 - 46.3 fL | [facility] | | | | | | LABORATORY | | | | | | SERVICES, | | | | | | CORE | | + + + + + + | PLATELET | 25 (L) | 150 - 400 K/cu | [facility] | | | COUNT | | mm | LABORATORY | | | | | | SERVICES, | | | | | | CORE | | + + + + + + | MPV | 10.9 | 9.7 - 12.3 fL | [facility] [...] + + + + | NEUTROPHIL | 58.7 | 50.0 - 70.0 % | [facility] | | | % | | | LABORATORY | | | | | | SERVICES, | | | | | | CORE | | + + + + + + | LYMPHOCYTE | 28.4 | 18.0 - 42.0 % | [facility] | | | % | | | LABORATORY | | | | | | SERVICES, | | | | | | CORE | | + + + + + + | MONOCYTE % | 8.7 | 3.5 - 9.0 % | [facility] | | | | | | LABORATORY | | | | | | SERVICES, | | | | | | CORE | | + + + + + + | EOS % | 3.2 (H) | 1.0 - 3.0 % | [...] + + + + | IG% | 0.5Comment: Increased | 0.0 - 1.0 % | [facility] | | | | immature granulocytes | | LABORATORY | | | | (IG) define a left | | SERVICES, | | | | shift. Immature | | CORE | | | | granulocytes (IG) are an | | | | | | automated count of | | | | | | metamyelocytes, | | | | | | myelocytes and | | | | | | promyelocytes. Bands | | | | | | are not included in the | | | | | | IG count. Bands are | | | | | | included in the | | | | | | neutrophil count. | | | | + + + + + + | NEUTROPHIL | 2.23 | 1.80 - 7.70 | [facility] | | | # | | K/cu mm | LABORATORY | | | | | | SERVICES, | | | | | | CORE | | + + + + + + | LYMPHOCYTE | 1.08 | 1.00 - 4.80 | [facility] | | | # | | K/cu mm | LABORATORY | | | | | | SERVICES, | | | | | | CORE | | + + + + + + | MONOCYTE # | 0.33 | 0.10 - 0.90 | [facility] | | | | | K/cu mm | LABORATORY | | | | | | SERVICES, | | | | | | CORE | | + + + + + + | EOS # | 0.12 | 0.00 - 0.50 | [facility] | [...] + | [facility] | [address] | [place] [address] | | | SERVICES, CORE | [address] | | | + + + + + PHOSPHORUS, PLASMA (07/21/2019 3:44 AM PDT) + +-------+ + + + | Component | Value | Ref Range | Performed | Pathologist | | | | | At | Signature | + +-------+ + + + | PHOSPHORUS, | 3.1 | 2.4 - 4.7 mg/dL | [facility] [...] | + + + + + | [facility] | [address] | [place] [address] | | | SERVICES, CORE | [address] | | | + + + + + MAGNESIUM, PLASMA (07/21/2019 3:44 AM PDT) + +-------+ + + + | Component | Value | Ref Range | Performed | Pathologist | | | | | At | Signature | + +-------+ + + + | MAGNESIUM,P | 1.9 | 1.6 - 2.6 mg/dL | [facility] | | | L[facility]MA | | | [...] + | [facility] | [address] | [place] [address] | | | CLAUDIA, ARTIS | [address] | | | + + + + + INR (07/21/2019 3:44 AM PDT) + + + + + + | Component | Value | Ref Range | Performed | Pathologist | | | | | At | Signature | + + + + + + | INR | 4.71 (H) | 0.90 - 1.20 INR | [...] mech. valves (2.5 - 3.5) INR | [facility] | + + + + + + + + | Performing | Address | City/State/Zipcode | Phone Number | | Organization | | | | + + + + + | [facility] | [address] | [place] [address] | | | ARTIS TAYL[place] | [address] | | | + + + + + COMPLETE METABOLIC SET (NA,K,CL,CO2,BUN,CREAT,GLUC,CA,AST,ALT,BILI TOTAL,ALK PHOS,ALB,PROT TOTAL) (07/21/2019 3:44 AM PDT) + + + + + + | Component | Value | Ref Range | Performed | Pathologist | | | | | At | Signature | + + + + + + | GLUCOSE, | 175 (H) | 70 - 99 mg/dL | [facility] | | | PLASMA | | | LABORATORY | | | (LAB) | | | SERVICES, | | | | | | CORE | | + + + + + + | BUN, PLASMA | 39 (H) | 6 - 20 mg/dL | [facility] | | | (LAB) | | | LABORATORY | | | | | | SERVICES, | | | | | | CORE | | + + + + + + | CREATININE | 1.75 (H) | 0.70 - 1.30 | [facility] | | | PLASMA | | mg/dL | LABORATORY | | | (LAB) | | | SERVICES, | | | | | | CORE | | + + + + + + | EGFR | 49 (L) | >60 mL/min | [facility] | | | - | | | LABORATORY | | | TURKISH | | | SERVICES, | | | | | | CORE | | + + + + + + | EGFR NON | 41 (L) | >60 mL/min | [facility] | | | -JARRED | | | LABORATORY | | | RICAN | | | SERVICES, | | | | | | CORE | | + + + + + + | SODIUM, | 131 (L) | 136 - 145 | [facility] | | | PLASMA | | mmol/L | LABORATORY | | | (LAB) | | | SERVICES, | | | | | | CORE | | + + + + + + | POTASSIUM, | 3.6 | 3.4 - 5.0 | [facility] | [...] + + + | TOTAL CO2, | 24 | 21 - 32 mmol/L | [facility] | | | PLASMA | | | LABORATORY | | | (LAB) | | | SERVICES, | | | | | | CORE | | + + + + + + | CALCIUM, | 9.1 | 8.6 - 10.2 | [facility] | | | PLASMA | | mg/dL | LABORATORY | | | (LAB) | | | SERVICES, | | | | | | CORE | | + + + + + + | CALCIUM(ALB | 9.3 | 8.6 - 10.2 | [facility] | | | CORRECTED) | | mg/dL | LABORATORY | | | | | | SERVICES, | | | | | | CORE | | + + + + + + | BILIRUBIN | 12.3 (H) | 0.3 - 1.2 mg/dL | [...] + + + | ALK PHOS | 78 | 53 - 128 U/L | [facility] | | | | | | LABORATORY | | | | | | SERVICES, | | | | | | CORE | | + + + + + + | AST(SGOT) | 81 (H) | <=41 U/L | [facility] | | | | | | LABORATORY | | | | | | SERVICES, | | | | | | CORE | | + + + + + + | ALT (SGPT) | 37 | <=60 U/L | [facility] | | | | | | LABORATORY | | | | | | SERVICES, | | | | | | CORE | | + + + + + + | ANION GAP | 9 | 4 - 11 mmol/L | [facility] | | | | | | LABORATORY | | | | | | SERVICES, | | | | | | CORE | | + + + + + + | ANION | 9 | 4 - 11 mmol/L | [facility] [...] MDRD equation recommended by the National | [facility] | | Kidney Disease Education Program. Estimated GFR Interpretive | LABORATORY | | Information: <60 mL/min/1.73 sq m Chronic Kidney | SERVICES, CORE | | Disease <15 mL/min/1.73 sq m Kidney Failure | | | Estimated GFR greater than 60 mL/min/1.73 sq m is of limited clinical | | | value. The MDRD equation is not valid in the following situations: - | | | Patients under 18 years of [...] | + + + + + | [facility] | [address] | [place] [address] | | | ARTIS TAYL[place] | [address] | | | + + + + + CAPILLARY BLOOD GLUCOSE (NO CHG), POC (07/20/2019 8:48 PM PDT) + +---------+ + + + | Component | Value | Ref Range | Performed | Pathologist | | | | | At | Signature | + +---------+ + + + | BLOOD | 189 (H) | 70 - 99 mg/dL | [facility] | | | GLUCOSE, | | | [facility] | | | POC | | | [facility] | | | | | | OF CARE | | | | | | TESTS | | + +---------+ + + + + + | Specimen | + + | Blood | + + + + + + + | Performing | Address | City/State/Zipcode | Phone Number | | Organization | | | | + + + + + | [facility] | [address] | [place], [place] | | | [facility] [place] | [address] | [address] | | | TESTS | | | | + + + + + CAPILLARY BLOOD GLUCOSE (NO CHG), POC (07/20/2019 5:48 PM PDT) + +---------+ + + + | Component | Value | Ref Range | Performed | Pathologist | | | | | At | Signature | + +---------+ + + + | BLOOD | 203 (H) | 70 - 99 mg/dL | [facility] | | | GLUCOSE, | | | [facility] | | | POC | | | [facility] | | | | | | OF CARE | | | | | | TESTS | | + +---------+ + + + + + | Specimen | + + | Blood | + + + + + + + | Performing | Address | City/State/Zipcode | Phone Number | | Organization | | | | + + + + + | [facility] | [address] | [place], [place] | | | [facility] | [address] | [address] | | | TESTS | | | | + + + + + CULTURE, BLOOD BACTI & YEAST [facility] (07/20/2019 4:30 PM PDT) + + + + + + | Component | Value | Ref Range | Performed | Pathologist | | | | | At | Signature | + + + + + + | CULTURE | Final Report:No Bacteria | | [facility] | | | RESULT | or Yeast isolated at 5 | | LABORATORY | | | | days. | | SERVICES, | | | | | | CORE | | + + + + + + + + | Specimen | + + | Blood - Structure of | | right hand (body | | structure) | + + + + + + + | Performing | Address | City/State/Zipcode | Phone Number | | Organization | | | | + + + + + | [facility] | [address] | [place] [address] | | | SERVICES, [facility] | [address] | | | + + + + + X-RAY PORTABLE CHEST 1 VIEW (07/20/2019 3:46 PM PDT) + + | Specimen | + + | | + + + + + | Narrative | Performed At | + + + | EXAM: AR CHEST 1 VIEW HISTORY: infectious workup | [facility] | | COMPARISON: 07/18/2019 FINDINGS: Interval increase in bibasilar | RADIOLOGY VOICE | | atelectasis, otherwise no focal consolidation. Pulmonary vasculature | RECOGNITION 2 | | is now indistinct, new since prior study. The cardiomediastinal | | | contour is similar to prior. Trace pleural effusions are evident. No | | | pneumothorax. No acute osseous abnormality. IMPRESSION: | | | Findings most consistent with development of pulmonary edema with | | | increased bibasilar atelectasis and trace pleural effusions. I | | | have personally reviewed the images and, if necessary, edited the | | | report. I agree with the report as now presented. Final | | | signature: Bakari Paredes MD 07/20/2019 4:04 PM Preliminary: | | | Yesy Hdez MD Dictation initiated: Yesy Hdez MD | | | 07/20/2019 3:34 PM | | + + + + + | Procedure Note | + + | Service Account, Radiant Res In Interface - 07/20/2019 4:05 PM PDT EXAM: AR CHEST 1 | | VIEW HISTORY: infectious workup COMPARISON: 07/18/2019 FINDINGS: Interval increase in | | bibasilar atelectasis, otherwise no focal consolidation. Pulmonary vasculature is now | | indistinct, new since prior study. The cardiomediastinal contour is similar to prior. | | Trace pleural effusions are evident. No pneumothorax. No acute osseous abnormality. | | IMPRESSION: Findings most consistent with development of pulmonary edema with increased | | bibasilar atelectasis and trace pleural effusions. I have personally reviewed the | | images and, if necessary, edited the report. I agree with the report as now presented. | | Final signature: Bakari Paredes MD 07/20/2019 4:04 PM Preliminary: Yesy Hdez MD | | Dictation initiated: Yesy Hdez MD 07/20/2019 3:34 PM | | | |IMPRESSION: | | | | | |Findings most consistent with development of pulmonary edema with increased bibasilar atele ctasis and trace pleural effusions. | | | |I have personally reviewed the images and, if necessary, edited the report. I agree with th e report as now presented. | | | |Final signature: Bakari Paredes MD 07/20/2019 4:04 PM | |Preliminary: Yesy Hdez MD | |Dictation initiated: Yesy Hdez MD 07/20/2019 3:34 PM | + + + +---------+ + + | Performing | Address | City/State/Zipcode | Phone Number | | Organization | | | | + +---------+ + + | [facility] | | | | | VOICE RECOGNITION 2 | | | | + +---------+ + + CULTURE, BLOOD BACTI & YEAST [facility] (07/20/2019 3:40 PM PDT) + + + + + + | Component | Value | Ref Range | Performed | Pathologist | | | | | At | Signature | + + + + + + | CULTURE | Final Report:No Bacteria | | [facility] | | | RESULT | or Yeast isolated at 5 | | LABORATORY | | | | days. | | SERVICES, | | | | | | CORE | | + + + + + + + + | Specimen | + + | Blood - Antecubital | | region structure | | (body structure) | + + + + + + + | Performing | Address | City/State/Zipcode | Phone Number | | Organization | | | | + + + + + | [facility] | [address] | [place] [address] | | | SERVICES, CORE | [address] | | | + + + + + CAPILLARY BLOOD GLUCOSE (NO CHG), POC (07/20/2019 3:38 PM PDT) + +---------+ + + + | Component | Value | Ref Range | Performed | Pathologist | | | | | At | Signature | + +---------+ + + + | BLOOD | 223 (H) | 70 - 99 mg/dL | [facility] - | | | GLUCOSE, | | | [facility] | | | POC | | | [facility] | | | | | | OF CARE | | | | | | TESTS | | + +---------+ + + + + + | Specimen | + + | Blood | + + + + + + + | Performing | Address | City/State/Zipcode | Phone Number | | Organization | | | | + + + + + | [facility] | [address] | [place], [place] | | | [facility] | [facility] | [address] | | | TESTS | | | | + + + + + CBC (HEMOGRAM) ONLY (07/20/2019 3:30 PM PDT) + + + + + + | Component | Value | Ref Range | Performed | Pathologist | | | | | At | Signature | + + + + + + | WHITE CELL | 4.35 | 3.50 - 10.80 | [facility] | | | COUNT | | K/cu mm | LABORATORY | | | | | | SERVICES, | | | | | | CORE | | + + + + + + | RED CELL | 2.23 (L) | 4.50 - 6.00 | [facility] | | | COUNT | | M/cu mm | LABORATORY | | | | | | SERVICES, | | | | | | CORE | | + + + + + + | HEMOGLOBIN | 7.7 (L) | 13.5 - 17.5 | [facility] | | | | | g/dL | LABORATORY | | | | | | SERVICES, | | | | | | CORE | | + + + + + + | HEMATOCRIT | 22.5 (L) | 41.0 - 53.0 % | [facility] | | | | | | LABORATORY | | | | | | SERVICES, | | | | | | CORE | | + + + + + + | MCV | 100.9 (H) | 80.0 - 100.0 fL | [facility] | | | | | | LABORATORY | | | | | | SERVICES, | | | | | | CORE | | + + + + + + | MCHC | 34.2 | 32.0 - 36.0 | [facility] | | | | | g/dL | LABORATORY | | | | | | SERVICES, | | | | | | CORE | | + + + + + + | RDW SD | 52.3 (H) | 35.1 - 46.3 fL | [facility] | | | | | | LABORATORY | | | | | | SERVICES, | | | | | | CORE | | + + + + + + | PLATELET | 25 (L) | 150 - 400 K/cu | [facility] | | | COUNT | | mm | LABORATORY | | | | | | SERVICES, | | | | | | CORE | | + + + + + + | MPV | 10.4 | 9.7 - 12.3 fL | [facility] [...] | [facility] | [address] | [place] [address] | | | SERVICES, CORE | [address] | | | + + + + + PRODUCT - RED CELLS LEUKOREDUCED (07/20/2019 11:44 AM PDT) + + + + + + | Component | Value | Ref Range | Performed | Pathologist | | | | | At | Signature | + + + + + + | PRODUCT | -1 RED BLOOD CELLS | | [facility] | | | DESCRIPTION | LEUKOREDUCED | | LABORATORY | | | | | | SERVICES, | | | | | | TRANSFUSION | | | | | | MEDICINE | | + + + + + + | PRODUCT | [id number] | | [facility] | | | UNIT # | | | LABORATORY | | | | | | SERVICES, | | | | | | TRANSFUSION | | | | | | MEDICINE | | + + + + + + | UNIT ABO | A | | [facility] | | | | | | LABORATORY | | | | | | SERVICES, | | | | | | TRANSFUSION | | | | | | MEDICINE | | + + + + + + | UNIT RH | POS | | [facility] | | | | | | LABORATORY | | | | | | SERVICES, | | | | | | TRANSFUSION | | | | | | MEDICINE | | + + + + + + | STATUS OF | Presumed Transfused | | [facility] | | | UNIT | | | LABORATORY | | | | | | SERVICES, | | | | | | TRANSFUSION | | | | | | MEDICINE | | + + + + + + | EXPIRATION | [id number] | | [facility] | | | DATE | | | LABORATORY | | | | | | SERVICES, | | | | | | TRANSFUSION | | | | | | MEDICINE | | + + + + + + | BLOOD TYPE | [phone] | | [facility] | | | BARCODE | | | LABORATORY | | | | | | SERVICES, | | | | | | TRANSFUSION | | | | | | MEDICINE | | + + + + + + | BLOOD | [id number] | | [facility] | | | PRODUCT | | | LABORATORY | | | CODE | | | SERVICES, | | | | | | TRANSFUSION | | | | | | MEDICINE | | + + + + + + + + | Specimen | + + | | + + + + + + + | Performing | Address | City/State/Zipcode | Phone Number | | Organization | | | | + + + + + | [facility] | [address] | [place] [address] | | | SERVICES, | [address] | | | | TRANSFUSION MEDICINE | | | | + + + + + CBC (HEMOGRAM) ONLY (07/20/2019 11:03 AM PDT) + + + + + + | Component | Value | Ref Range | Performed | Pathologist | | | | | At | Signature | + + + + + + | WHITE CELL | 4.35 | 3.50 - 10.80 | [facility] | | | COUNT | | K/cu mm | LABORATORY | | | | | | SERVICES, | | | | | | CORE | | + + + + + + | RED CELL | 2.01 (L) | 4.50 - 6.00 | [facility] | | | COUNT | | M/cu mm | LABORATORY | | | | | | SERVICES, | | | | | | CORE | | + + + + + + | HEMOGLOBIN | 7.2 (L) | 13.5 - 17.5 | [facility] | | | | | g/dL | LABORATORY | | | | | | SERVICES, | | | | | | CORE | | + + + + + + | HEMATOCRIT | 20.8 (L) | 41.0 - 53.0 % | [facility] | | | | | | LABORATORY | | | | | | SERVICES, | | | | | | CORE | | + + + + + + | MCV | 103.5 (H) | 80.0 - 100.0 fL | [...] + + + | RDW SD | 51.6 (H) | 35.1 - 46.3 fL | [facility] | | | | | | LABORATORY | | | | | | SERVICES, | | | | | | CORE | | + + + + + + | PLATELET | 27 (L) | 150 - 400 K/cu | [facility] | | | COUNT | | mm | LABORATORY | | | | | | SERVICES, | | | | | | CORE | | + + + + + + | MPV | 10.5 | 9.7 - 12.3 fL | [facility] [...] | + + + + + | [facility] | [address] | [place] [address] | | | SERVICES, CORE | [address] | | | + + + + + PRODUCT - RED CELLS LEUKOREDUCED (07/20/2019 10:29 AM PDT) + + + + + + | Component | Value | Ref Range | Performed | Pathologist | | | | | At | Signature | + + + + + + | PRODUCT | -1 RED BLOOD CELLS | | [facility] | | | DESCRIPTION | LEUKOREDUCED | | LABORATORY | | | | | | SERVICES, | | | | | | TRANSFUSION | | | | | | MEDICINE | | + + + + + + | PRODUCT | [id number] | | [facility] | | | UNIT # | | | LABORATORY | | | | | | SERVICES, | | | | | | TRANSFUSION | | | | | | MEDICINE | | + + + + + + | UNIT ABO | A | | [facility] | | | | | | LABORATORY | | | | | | SERVICES, | | | | | | TRANSFUSION | | | | | | MEDICINE | | + + + + + + | UNIT RH | POS | | [facility] | | | | | | LABORATORY | | | | | | SERVICES, | | | | | | TRANSFUSION | | | | | | MEDICINE | | + + + + + + | STATUS OF | Returned to Blood Bank | | [facility] | | | UNIT | | | LABORATORY | | | | | | SERVICES, | | | | | | TRANSFUSION | | | | | | MEDICINE | | + + + + + + | EXPIRATION | [id number] | | [facility] | | | DATE | | | LABORATORY | | | | | | SERVICES, | | | | | | TRANSFUSION | | | | | | MEDICINE | | + + + + + + | BLOOD TYPE | 6200 | | [facility] | | | BARCODE | | | LABORATORY | | | | | | SERVICES, | | | | | | TRANSFUSION | | | | | | MEDICINE | | + + + + + + | BLOOD | [id number] | | [facility] | | | PRODUCT | | | LABORATORY | | | CODE | | | SERVICES, | | | | | | TRANSFUSION | | | | | | MEDICINE | | + + + + + + + + | Specimen | + + | | + + + + + + + | Performing | Address | City/State/Zipcode | Phone Number | | Organization | | | | + + + + + | [facility] | [address] | [place] [address] | | | SERVICES, | [address] | | | | TRANSFUSION MEDICINE | | | | + + + + + CAPILLARY BLOOD GLUCOSE (NO CHG), POC (07/20/2019 10:09 AM PDT) + +---------+ + + + | Component | Value | Ref Range | Performed | Pathologist | | | | | At | Signature | + +---------+ + + + | BLOOD | 304 (H) | 70 - 99 mg/dL | [facility] - | | | GLUCOSE, | | | [facility] | | | POC | | | [facility] | | | | | | OF CARE | | | | | | TESTS | | + +---------+ + + + + + | Specimen | + + | Blood | + + + + + + + | Performing | Address | City/State/Zipcode | Phone Number | | Organization | | | | + + + + + | [facility] | [address] | [place], [place] | | | [facility] | [address] | [address] | | | TESTS | | | | + + + + + CAPILLARY BLOOD GLUCOSE (NO CHG), POC (07/20/2019 10:07 AM PDT) + +---------+ + + + | Component | Value | Ref Range | Performed | Pathologist | | | | | At | Signature | + +---------+ + + + | BLOOD | 296 (H) | 70 - 99 mg/dL | [facility] - | | | GLUCOSE, | | | [facility] | | | POC | | | [facility] | | | | | | OF CARE | | | | | | TESTS | | + +---------+ + + + + + | Specimen | + + | Blood | + + + + + + + | Performing | Address | City/State/Zipcode | Phone Number | | Organization | | | | + + + + + | [facility] | [address] | [place], [place] | | | [facility] [place] | [address] | [address] | | | TESTS | | | | + + + + + 12 LEAD ECG (07/20/2019 8:26 AM PDT) + + + + + + | Component | Value | Ref Range | Performed | Pathologist | | | | | At | Signature | + + + + + + | VENTRICULAR | 71 | bpm | [facility] | | | RATE | | | OF | | | | | | CARDIOLOGY | | + + + + + + | ATRIAL RATE | 73 | ms | [facility] | | | | | | OF | | | | | | CARDIOLOGY | | + + + + + + | P-R | | | [facility] | | | INTERVAL | | | OF | | | | | | CARDIOLOGY | | + + + + + + | P AXIS | | | [facility] | | | | | | OF | | | | | | CARDIOLOGY | | + + + + + + | QRS | 147 | ms | [facility] | | | DURATION | | | OF | | | | | | CARDIOLOGY | | + + + + + + | QT | 321 | ms | [facility] | | | | | | OF | | | | | | CARDIOLOGY | | + + + + + + | QTC-BAZETT | 354 | ms | [facility] | | | | | | OF | | | | | | CARDIOLOGY | | + + + + + + | R AXIS | 47 | deg | [facility] | | | | | | OF | | | | | | CARDIOLOGY | | + + + + + + | T AXIS | 114 | deg | [facility] | | | | | | OF | | | | | | CARDIOLOGY | | + + + + + + | ECG | Atrial fibrillation | | [facility] | | | IMPRESSION | | | OF | | | | | | CARDIOLOGY | | + + + + + + | ECG | IVCD, consider RBBB | | [facility] | | | IMPRESSION | | | OF | | | | | | CARDIOLOGY | | + + + + + + | ECG | Abnrm T, consider | | [facility] | | | IMPRESSION | ischemia, anterolateral | | OF | | | | lds- ABNORMAL ECG - | | CARDIOLOGY | | + + + + + + | ECG | Electronically signed | | [facility] | | | IMPRESSION | by: DAVID HOFFMAN | | OF | | | | 07-20-2019 16:47:38 | | CARDIOLOGY | | + + [...] + + + + + | [facility] | [address] | [place], [place] | | | CARDIOLOGY | [address] | [address] | | + + + + + TROPONIN I, PLASMA (07/20/2019 7:00 AM PDT) + +-------+ + + + | Component | Value | Ref Range | Performed | Pathologist | | | | | At | Signature | + +-------+ + + + | TROPONIN I | 0.12 | <0.80 ng/mL | [facility] | | | | | [...] + | [facility] | [address] | [place] [address] | | | SERVICES, CORE | [address] | | | + + + + + PRODUCT - RED CELLS LEUKOREDUCED (07/20/2019 6:30 AM PDT) + + + + + + | Component | Value | Ref Range | Performed | Pathologist | | | | | At | Signature | + + + + + + | PRODUCT | -1 RED BLOOD CELLS | | [facility] | | | DESCRIPTION | LEUKOREDUCED | | LABORATORY | | | | | | SERVICES, | | | | | | TRANSFUSION | | | | | | MEDICINE | | + + + + + + | PRODUCT | [id number] | | [facility] | | | UNIT # | | | LABORATORY | | | | | | SERVICES, | | | | | | TRANSFUSION | | | | | | MEDICINE | | + + + + + + | UNIT ABO | A | | [facility] | | | | | | LABORATORY | | | | | | SERVICES, | | | | | | TRANSFUSION | | | | | | MEDICINE | | + + + + + + | UNIT RH | POS | | [facility] | | | | | | LABORATORY | | | | | | SERVICES, | | | | | | TRANSFUSION | | | | | | MEDICINE | | + + + + + + | STATUS OF | Presumed Transfused | | [facility] | | | UNIT | | | LABORATORY | | | | | | SERVICES, | | | | | | TRANSFUSION | | | | | | MEDICINE | | + + + + + + | EXPIRATION | [id number] | | [facility] | | | DATE | | | LABORATORY | | | | | | SERVICES, | | | | | | TRANSFUSION | | | | | | MEDICINE | | + + + + + + | BLOOD TYPE | 6200 | | [facility] | | | BARCODE | | | LABORATORY | | | | | | SERVICES, | | | | | | TRANSFUSION | | | | | | MEDICINE | | + + + + + + | BLOOD | [id number] | | [facility] | | | PRODUCT | | | LABORATORY | | | CODE | | | SERVICES, | | | | | | TRANSFUSION | | | | | | MEDICINE | | + + + + + + + + | Specimen | + + | | + + + + + + + | Performing | Address | City/State/Zipcode | Phone Number | | Organization | | | | + + + + + | [facility] | [address] | [place] [address] | | | SERVICES, | [address] | | | | TRANSFUSION MEDICINE | | | | + + + + + MAGNESIUM, PLASMA (07/20/2019 5:24 AM PDT) + +-------+ + + + | Component | Value | Ref Range | Performed | Pathologist | | | | | At | Signature | + +-------+ + + + | MAGNESIUM,P | 2.1 | 1.6 - 2.6 mg/dL | [facility] [...] | + + + + + | [facility] | [address] | [place] [address] | | | SERVICES, CORE | [address] | | | + + + + + CBC (HEMOGRAM) ONLY (07/20/2019 5:24 AM PDT) + + + + + + | Component | Value | Ref Range | Performed | Pathologist | | | | | At | Signature | + + + + + + | WHITE CELL | 4.74 | 3.50 - 10.80 | [facility] | | | COUNT | | K/cu mm | LABORATORY | | | | | | SERVICES, | | | | | | CORE | | + + + + + + | RED CELL | 1.60 (L) | 4.50 - 6.00 | [facility] | | | COUNT | | M/cu mm | LABORATORY | | | | | | SERVICES, | | | | | | CORE | | + + + + + + | HEMOGLOBIN | 5.7 (LL) | 13.5 - 17.5 | [facility] | | | | | g/dL | LABORATORY | | | | | | SERVICES, | | | | | | CORE | | + + + + + + | HEMATOCRIT | 16.7 (LL) | 41.0 - 53.0 % | [facility] | | | | | | LABORATORY | | | | | | SERVICES, | | | | | | CORE | | + + + + + + | MCV | 104.4 (H) | 80.0 - 100.0 fL | [facility] | | | | | | LABORATORY | | | | | | SERVICES, | | | | | | CORE | | + + + + + + | MCHC | 34.1 | 32.0 - 36.0 | [facility] | | | | | g/dL | LABORATORY | | | | | | SERVICES, | | | | | | CORE | | + + + + + + | RDW SD | 49.1 (H) | 35.1 - 46.3 fL | [facility] | | | | | | LABORATORY | | | | | | SERVICES, | | | | | | CORE | | + + + + + + | PLATELET | 26 (L) | 150 - 400 K/cu | [facility] | | | COUNT | | mm | LABORATORY | | | | | | SERVICES, | | | | | | CORE | | + + + + + + | MPV | 10.3 | 9.7 - 12.3 fL | [facility] [...] + | [facility] | [address] | [place] [address] | | | SERVICES, CORE | [address] | | | + + + + + BASIC METABOLIC SET (NA, K, CL, TCO2, BUN, CR, GLU, CA) (07/20/2019 5:24 AM PDT) + + + + + + | Component | Value | Ref Range | Performed | Pathologist | | | | | At | Signature | + + + + + + | GLUCOSE, | 273 (H) | 70 - 99 mg/dL | [facility] | | | PLASMA | | | LABORATORY | | | (LAB) | | | SERVICES, | | | | | | CORE | | + + + + + + | BUN, PLASMA | 35 (H) | 6 - 20 mg/dL | [facility] | | | (LAB) | | | LABORATORY | | | | | | SERVICES, | | | | | | CORE | | + + + + + + | CREATININE | 1.60 (H) | 0.70 - 1.30 | [facility] | | | PLASMA | | mg/dL | LABORATORY | | | (LAB) | | | SERVICES, | | | | | | CORE | | + + + + + + | EGFR | 55 (L) | >60 mL/min | [facility] | | | - | | | LABORATORY | | | T[place] | | | SERVICES, | | | | | | CORE | | + + + + + + | EGFR NON | 45 (L) | >60 mL/min | [facility] | | | -JARRED | | | LABORATORY | | | RICAN | | | SERVICES, | | | | | | CORE | | + + + + + + | SODIUM, | 131 (L) | 136 - 145 | [facility] | | | PLASMA | | mmol/L | LABORATORY | | | (LAB) | | | SERVICES, | | | | | | CORE | | + + + + + + | POTASSIUM, | 3.8 | 3.4 - 5.0 | [facility] | | | PLASMA | | mmol/L | LABORATORY | | | (LAB) | | | SERVICES, | | | | | | CORE | | + + + + + + | CHLORIDE, | 99 | 97 - 108 mmol/L | [facility] | | | PLASMA | | | LABORATORY | | | (LAB) | | | SERVICES, | | | | | | CORE | | + + + + + + | TOTAL CO2, | 26 | 21 - 32 mmol/L | [facility] | | | PLASMA | | | LABORATORY | | | (LAB) | | | SERVICES, | | | | | | CORE | | + + + + + + | CALCIUM, | 8.4 (L) | 8.6 - 10.2 | [facility] | [...] MDRD equation recommended by the National | [facility] | | Kidney Disease Education Program. Estimated GFR Interpretive | LABORATORY | | Information: <60 mL/min/1.73 sq m Chronic Kidney | SERVICES, CORE | | Disease <15 mL/min/1.73 sq m Kidney Failure | | | Estimated GFR greater than 60 mL/min/1.73 sq m is of limited clinical | | | value. The MDRD equation is not valid in the following situations: - | | | Patients under 18 years of [...] [facility] | [address] | [place] [address] | | | SERVICES, CORE | [address] | | | + + + + + 12 LEAD ECG (07/20/2019 12:32 AM PDT) + + + + + + | Component | Value | Ref Range | Performed | Pathologist | | | | | At | Signature | + + + + + + | VENTRICULAR | 140 | bpm | [facility] | | | RATE | | | OF | | | | | | CARDIOLOGY | | + + + + + + | ATRIAL RATE | 161 | ms | [facility] | | | | | | OF | | | | | | CARDIOLOGY | | + + + + + + | P-R | 94 | ms | [facility] | | | INTERVAL | | | OF | | | | | | CARDIOLOGY | | + + + + + + | P AXIS | 200 | deg | [facility] | | | | | | OF | | | | | | CARDIOLOGY | | + + + + + + | QRS | 161 | ms | [facility] | | | DURATION | | | OF | | | | | | CARDIOLOGY | | + + + + + + | QT | 358 | ms | [facility] | | | | | | OF | | | | | | CARDIOLOGY | | + + + + + + | QTC-BELLA | 547 | ms | [facility] | | | | | | OF | | | | | | CARDIOLOGY | | + + + + + + | R AXIS | 56 | deg | [facility] | | | | | | OF | | | | | | CARDIOLOGY | | + + + + + + | T AXIS | 40 | deg | [facility] | | | | | | OF | | | | | | CARDIOLOGY | | + + + + + + | ECG | Supraventricular | | [facility] | | | IMPRESSION | tachycardia | | OF | | | | | | CARDIOLOGY | | + + + + + + | ECG | IVCD, consider RBBB | | [facility] | | | IMPRESSION | | | OF | | | | | | CARDIOLOGY | | + + + + + + | ECG | ST depr, consider | | [facility] | | | IMPRESSION | ischemia, anterior | | OF | | | | leads- ABNORMAL ECG - | | CARDIOLOGY | | + + + + + + | ECG | Electronically signed | | [facility] | | | IMPRESSION | by: ALIREZA SORIANO | | OF | | | | 07-20-2019 18:10:24 | | CARDIOLOGY | | + + [...] DEPT OF | [address] | [place], [place] | | | CARDIOLOGY | [address] | [address] | | + + + + + CAPILLARY BLOOD GLUCOSE (NO CHG), POC (07/19/2019 9:33 PM PDT) + +---------+ + + + | Component | Value | Ref Range | Performed | Pathologist | | | | | At | Signature | + +---------+ + + + | BLOOD | 241 (H) | 70 - 99 mg/dL | [facility] | | | GLUCOSE, | | | [facility] | | | POC | | | [facility] | | | | | | OF CARE | | | | | | TESTS | | + +---------+ + + + + + | Specimen | + + | Blood | + + + + + + + | Performing | Address | City/State/Zipcode | Phone Number | | Organization | | | | + + + + + | [facility] | [address] | [place], [place] | | | [facility] | [address] | [address] | | | TESTS | | | | + + + + + BASIC METABOLIC SET (NA, K, CL, TCO2, BUN, CR, GLU, CA) (07/19/2019 8:22 PM PDT) + + + + + + | Component | Value | Ref Range | Performed | Pathologist | | | | | At | Signature | + + + + + + | GLUCOSE, | 271 (H) | 70 - 99 mg/dL | [facility] | | | PLASMA | | | LABORATORY | | | (LAB) | | | SERVICES, | | | | | | CORE | | + + + + + + | BUN, PLASMA | 35 (H) | 6 - 20 mg/dL | [facility] | | | (LAB) | | | LABORATORY | | | | | | SERVICES, | | | | | | CORE | | + + + + + + | CREATININE | 1.62 (H) | 0.70 - 1.30 | [facility] | | | PLASMA | | mg/dL | LABORATORY | | | (LAB) | | | SERVICES, | | | | | | CORE | | + + + + + + | EGFR | 54 (L) | >60 mL/min | [facility] | | | - | | | LABORATORY | | | [place] | | | SERVICES, | | | | | | CORE | | + + + + + + | EGFR NON | 45 (L) | >60 mL/min | [facility] | | | -JARRED | | | LABORATORY | | | [...] + + + + | POTASSIUM, | 4.1 | 3.4 - 5.0 | [facility] | | | PLASMA | | mmol/L | LABORATORY | | | (LAB) | | | SERVICES, | | | | | | CORE | | + + + + + + | CHLORIDE, | 100 | 97 - 108 mmol/L | [facility] [...] + + + + | CALCIUM, | 8.7 | 8.6 - 10.2 | [facility] | | | PLASMA | | mg/dL | LABORATORY | | | (LAB) | | | SERVICES, | | | | | | CORE | | + + + + + + | ANION GAP | 11 | 4 - 11 mmol/L | [facility] [...] valid in the following situations: - | | | Patients under 18 years of [...] | + + + + + | [facility] [employer] | [address] | [place] [address] | | | SERVICES, ARTIS | [address] | | | + + + + + CAPILLARY BLOOD GLUCOSE (NO CHG), POC (07/19/2019 6:58 PM PDT) + +---------+ + + + | Component | Value | Ref Range | Performed | Pathologist | | | | | At | Signature | + +---------+ + + + | BLOOD | 240 (H) | 70 - 99 mg/dL | [facility] | | | GLUCOSE, | | | [facility] | | | POC | | | [place] | | | | | | OF CARE | | | | | | TESTS | | + +---------+ + + + + + | Specimen | + + | Blood | + + + + + + + | Performing | Address | City/State/Zipcode | Phone Number | | Organization | | | | + + + + + | [facility] | [address] | [place], [place] | | | [facility] | [facility] | [address] | | | TESTS | | | | + + + + + CAPILLARY BLOOD GLUCOSE (NO CHG), POC (07/19/2019 5:52 PM PDT) + +---------+ + + + | Component | Value | Ref Range | Performed | Pathologist | | | | | At | Signature | + +---------+ + + + | BLOOD | 232 (H) | 70 - 99 mg/dL | [facility] - | | | GLUCOSE, | | | [facility] | | | POC | | | [facility] | | | | | | OF CARE | | | | | | TESTS | | + +---------+ + + + + + | Specimen | + + | Blood | + + + + + + + | Performing | Address | City/State/Zipcode | Phone Number | | Organization | | | | + + + + + | [facility] | [address] | [place], [place] | | | [facility] | [address] | [address] | | | TESTS | | | | + + + + + UREA NITROGEN, URINE (07/19/2019 5:22 PM PDT) + +--------+ + + + | Component | Value | Ref Range | Performed | Pathologist | | | | | At | Signature | + +--------+ + + + | UREA NITRO | 460 | mg/dL | [facility] | | | CONC UR | | | LABORATORY | | | | | | SERVICES, | | | | | | CORE | | + +--------+ + + + | URINE | Random | | [facility] | | | INTERVAL | | | LABORATORY | | | | | | SERVICES, | | | | | | CORE | | + +--------+ + + + | URINE | Spot | | [facility] | | | VOLUME | | | LABORATORY | | | | | | SERVICES, | | | | | | CORE | | + +--------+ + + + + + | Specimen | + + | Urine - Urine | | (substance) | + + + + + | Narrative | Performed At | + + + | Reference range based on 24 hour collection time. Patient results | [facility] | | are calculated from actual collection time. | LABORATORY | | | [address] | + + + + + + + + | Performing | Address | City/State/Zipcode | Phone Number | | Organization | | | | + + + + + | [facility] | [address] | [place] [address] | | | SERVICES, ART[place] | [address] | | | + + + + + CREATININE, URINE (07/19/2019 5:22 PM PDT) + +--------+ + + + | Component | Value | Ref Range | Performed | Pathologist | | | | | At | Signature | + +--------+ + + + | CREATININE | 76.90 | mg/dL | [facility] | | | CONC UR | | | LABORATORY | | | | | | SERVICES, | | | | | | CORE | | + +--------+ + + + | URINE | Random | | [facility] | | | INTERVAL | | | LABORATORY | | | | | | SERVICES, | | | | | | CORE | | + +--------+ + + + | URINE | Spot | | [facility] | | | VOLUME | | | LABORATORY | | | | | | SERVICES, | | | | | | CORE | | + +--------+ + + + + + | Specimen | + + | Urine - Urine | | (substance) | + + + + + | Narrative | Performed At | + + + | Reference range based on 24 hour collection time. Patient results | [facility] | | are calculated from actual collection time. | LABORATORY | | | SERVICES, CORE | + + + + + + + + | Performing | Address | City/State/Zipcode | Phone Number | | Organization | | | | + + + + + | [facility] | [address] | [place] [address] | | | SERVICES, CORE | [address] | | | + + + + + SODIUM TOTAL, URINE (07/19/2019 5:22 PM PDT) + +--------+ + + + | Component | Value | Ref Range | Performed | Pathologist | | | | | At | Signature | + +--------+ + + + | SODIUM CONC | 12 | mmol/L | [facility] | | | URINE | | | LABORATORY | | | | | | SERVICES, | | | | | | CORE | | + +--------+ + + + | URINE | Random | | [facility] | | | INTERVAL | | | LABORATORY | | | | | | SERVICES, | | | | | | CORE | | + +--------+ + + + | URINE | Spot | | [facility] | | | VOLUME | | | LABORATORY | | | | | | SERVICES, | | | | | | CORE | | + +--------+ + + + + + | Specimen | + + | Urine - Urine | | (substance) | + + + + + | Narrative | Performed At | + + + | Reference range based on 24 hour collection time. Patient results | [facility] | | are calculated from actual collection time. | LABORATORY | | | SERVICES, CORE | + + + + + + + + | Performing | Address | City/State/Zipcode | Phone Number | | Organization | | | | + + + + + | [facility] | [address] | [place] [address] | | | SERVICES, CORE | [address] | | | + + + + + CBC (HEMOGRAM) ONLY (07/19/2019 1:56 PM PDT) + + + + + + | Component | Value | Ref Range | Performed | Pathologist | | | | | At | Signature | + + + + + + | WHITE CELL | 5.73 | 3.50 - 10.80 | [facility] | | | COUNT | | K/cu mm | LABORATORY | | | | | | SERVICES, | | | | | | CORE | | + + + + + + | RED CELL | 1.79 (L) | 4.50 - 6.00 | [facility] | | | COUNT | | M/cu mm | LABORATORY | | | | | | SERVICES, | | | | | | CORE | | + + + + + + | HEMOGLOBIN | 6.5 (L) | 13.5 - 17.5 | [facility] | | | | | g/dL | LABORATORY | | | | | | SERVICES, | | | | | | CORE | | + + + + + + | HEMATOCRIT | 18.5 (L) | 41.0 - 53.0 % | [facility] | | | | | | LABORATORY | | | | | | SERVICES, | | | | | | CORE | | + + + + + + | MCV | 103.4 (H) | 80.0 - 100.0 fL | [facility] | | | | | | LABORATORY | | | | | | SERVICES, | | | | | | CORE | | + + + + + + | MCHC | 35.1 | 32.0 - 36.0 | [facility] | | | | | g/dL | LABORATORY | | | | | | SERVICES, | | | | | | CORE | | + + + + + + | RDW SD | 47.4 (H) | 35.1 - 46.3 fL | [facility] | | | | | | LABORATORY | | | | | | SERVICES, | | | | | | CORE | | + + + + + + | PLATELET | 31 (L) | 150 - 400 K/cu | [facility] | | | COUNT | | mm | LABORATORY | | | | | | SERVICES, | | | | | | CORE | | + + + + + + | MPV | 11.3 | 9.7 - 12.3 fL | [facility] [...] | + + + + + | [facility] | [address] | [place] [address] | | | SERVICES, CORE | [address] | | | + + + + + MAGNESIUM, PLASMA (07/19/2019 1:56 PM PDT) + +-------+ + + + | Component | Value | Ref Range | Performed | Pathologist | | | | | At | Signature | + +-------+ + + + | MAGNESIUM,P | 2.1 | 1.6 - 2.6 mg/dL | [facility] | | | LASMA | | | [...] | + + + + + | [facility] | [address] | [place] [address] | | | SERVICES, CORE | [address] | | | + + + + + BASIC METABOLIC SET (NA, K, CL, TCO2, BUN, CR, GLU, CA) (07/19/2019 1:56 PM PDT) + + + + + [...] + + + | BUN, PLASMA | 36 (H) | 6 - 20 mg/dL | [facility] | | | (LAB) | | | LABORATORY | | | | | | SERVICES, | | | | | | CORE | | + + + + + + | CREATININE | 1.59 (H) | 0.70 - 1.30 | [facility] | | | PLASMA | | mg/dL | LABORATORY | | | (LAB) | | | SERVICES, | | | | | | CORE | | + + + + + + | EGFR | 55 (L) | >60 mL/min | [facility] | | | - | | | LABORATORY | | | [place] | | | SERVICES, | | | | | | CORE | | + + + + + + | EGFR NON | 46 (L) | >60 mL/min | [facility] | | | -JARRED | | | LABORATORY | | | RICAN | | | SERVICES, | | | | | | CORE | | + + + + + + | SODIUM, | 135 (L) | 136 - 145 | [facility] [...] + + | CHLORIDE, | 100 | 97 - 108 mmol/L | [facility] [...] + + + + | CALCIUM, | 8.9 | 8.6 - 10.2 | [facility] | | | PLASMA | | mg/dL | LABORATORY | | | (LAB) | | | SERVICES, | | | | | | CORE | | + + + + + + | ANION GAP | 7 | 4 - 11 mmol/L | [facility] | | | | | | LABORATORY | | | | | | SERVICES, | | | | | | CORE | | + + + + + + | POTASSIUM | Sl Hemo | | [facility] | | | [...] Performed At | + + + | Sample hemolyzed. Results for LD, K, and AST may be inaccurate. | [facility] | | Refer to comment under test. GFR is estimated using the MDRD | LABORATORY | | equation recommended by the National Kidney Disease Education Program. | SERVICES, CORE | | Estimated GFR Interpretive Information: <60 mL/min/1.73 sq m | | | Chronic Kidney Disease <15 mL/min/1.73 sq m | | | Kidney Failure Estimated GFR greater than 60 mL/min/1.73 | | | sq m is of limited clinical value. The MDRD equation is not valid in | | | the following situations: - Patients under 18 years of age - Severe | | | malnutrition or obesity - Vegetarian diet - Rapidly changing kidney | | | function - Amputees, paraplegics, or other muscle-wasting diseases | | + + + + + + + + | Performing | Address | City/State/Zipcode | Phone Number | | Organization | | | | + + + + + | [facility] | [address] | [place] [address] | | | SERVICES, CORE | [address] | | | + + + + + CAPILLARY BLOOD GLUCOSE (NO CHG), POC (07/19/2019 1:12 PM PDT) + +---------+ + + + | Component | Value | Ref Range | Performed | Pathologist | | | | | At | Signature | + +---------+ + + + | BLOOD | 132 (H) | 70 - 99 mg/dL | [facility] - | | | GLUCOSE, | | | [facility] | | | POC | | | [facility] | | | | | | OF CARE | | | | | | TESTS | | + +---------+ + + + + + | Specimen | + + | Blood | + + + + + + + | Performing | Address | City/State/Zipcode | Phone Number | | Organization | | | | + + + + + | [facility] | [address] | [place], [place] | | | [facility] | [address] | [address] | | | TESTS | | | | + + + + + CAPILLARY BLOOD GLUCOSE (NO CHG), POC (07/19/2019 12:04 PM PDT) + +---------+ + + + | Component | Value | Ref Range | Performed | Pathologist | | | | | At | Signature | + +---------+ + + + | BLOOD | 172 (H) | 70 - 99 mg/dL | [facility] | | | GLUCOSE, | | | [facility] | | | POC | | | [facility] | | | | | | OF CARE | | | | | | TESTS | | + +---------+ + + + + + | Specimen | + + | Blood | + + + + + + + | Performing | Address | City/State/Zipcode | Phone Number | | Organization | | | | + + + + + | [facility] | [address] | [place], [place] | | | [facility] | [address] | [address] | | | TESTS | | | | + + + + + URINE, MICROSCOPIC EXAM (07/19/2019 10:43 AM PDT) + +---------+ + + + | Component | Value | Ref Range | Performed | Pathologist | | | | | At | Signature | + +---------+ + + + | RED CELLS | 3 | 0 - 3 /hpf | [facility] | | | | | | LABORATORY | | | | | | SERVICES, | | | | | | CORE | | + +---------+ + + + | WHITE CELLS | 1 | 0 - 5 /hpf | [facility] | | | | | | LABORATORY | | | | | | SERVICES, | | | | | | CORE | | + +---------+ + + + | BACTERIA | None | None /hpf | [facility] | | | | | | LABORATORY | | | | | | SERVICES, | | | | | | CORE | | + +---------+ + + + | YEAST (LAB) | None | None /hpf | [facility] | | | | | | LABORATORY | | | | | | SERVICES, | | | | | | CORE | | + +---------+ + + + | SQUAMOUS | Few | None, Few /hpf | [facility] | | | EPITHELIAL | | | LABORATORY | | | | | | SERVICES, | | | | | | CORE | | + +---------+ + + + | MUCOUS | None | None, Few /hpf | [facility] | | | | | | LABORATORY | | | | | | SERVICES, | | | | | | CORE | | + +---------+ + + + | NON-SQUAMOU | Few (A) | None /hpf | [facility] | | | S EPITH | | | LABORATORY | | | | | | SERVICES, | | | | | | CORE | | + +---------+ + + + | HYALINE | 0 | 0 - 2 /lpf | [facility] | | | CASTS | | | LABORATORY | | | | | | SERVICES, | | | | | | CORE | | + +---------+ + + + | GRANULAR | 0 | 0 - 2 /lpf | [facility] | | | CASTS | | | LABORATORY | | | | | | SERVICES, | | | | | | CORE | | + +---------+ + + + | CELLULAR | 0 | <=0 /lpf | [facility] | | | CASTS | | | LABORATORY | | | | | | SERVICES, | | | | | | CORE | | + +---------+ + + + | TRIPLE P04 | None | None, Few /hpf | [facility] | | | CRYSTALS | | | LABORATORY | | | | | | SERVICES, | | | | | | CORE | | + +---------+ + + + | CALCIUM | None | None, Few /hpf | [facility] | | | OXALATE | | | LABORATORY | | | RAM[facility] | | | SERVICES, | | | | | | CORE | | + +---------+ + + + | URIC ACID | None | None, Few /hpf | [facility] | | | CRYSTALS | | | LABORATORY | | | | | | SERVICES, | | | | | | CORE | | + +---------+ + + + | AMORPHOUS | None | None, Few /hpf | [facility] | | | CRYSTALS | | | LABORATORY | | | | | | SERVICES, | | | | | | CORE | | + +---------+ + + + + + | Specimen | + + | Urine - Urine | | specimen collection, | | clean catch | | (procedure) | + + + + + + + | Performing | Address | City/State/Zipcode | Phone Number | | Organization | | | | + + + + + | [facility] | [address] | [place] [address] | | | SERVICES, CORE | [address] | | | + + + + + URINE SCREEN FOR CULTURE (07/19/2019 10:43 AM PDT) + + + + + + | Component | Value | Ref Range | Performed | Pathologist | | | | | At | Signature | + + + + + + | URINE | Negative | Negative | [facility] | | | SCREEN FOR | | | LABORATORY | | | CULTURE | | | SERVICES, | | | | | | CORE | | + + + + + + + + | Specimen | + + | Urine - Urine | | specimen collection, | | clean catch | | (procedure) | + + + + + | Narrative | Performed At | + + + | Culture Screen Negative. Culture not indicated. | [facility] | | | LABORATORY | | | SERVICES, CORE | + + + + + + + + | Performing | Address | City/State/Zipcode | Phone Number | | Organization | | | | + + + + + | [facility] | [address] | [place] [address] | | | SERVICES, CORE | [address] | | | + + + + + VANCOMYCIN, TROUGH (07/19/2019 10:34 AM PDT) + + + + + + | Component | Value | Ref Range | Performed | Pathologist | | | | | At | Signature | + + + + + + | VANCOMYCIN, | 29.1 (H) | 10.0 - 20.0 | [facility] | | | TROUGH | | ug/mL | LABORATORY | | | | | [...] | + + + + + | [facility] | [address] | [place] [address] | | | SERVICES, CORE | [address] | | | + + + + + CAPILLARY BLOOD GLUCOSE (NO CHG), POC (07/19/2019 9:39 AM PDT) + +---------+ + + + | Component | Value | Ref Range | Performed | Pathologist | | | | | At | Signature | + +---------+ + + + | BLOOD | 160 (H) | 70 - 99 mg/dL | [facility] - | | | GLUCOSE, | | | [facility] | | | POC | | | [facility] | | | | | | OF CARE | | | | | | TESTS | | + +---------+ + + + + + | Specimen | + + | Blood | + + + + + + + | Performing | Address | City/State/Zipcode | Phone Number | | Organization | | | | + + + + + | [facility] | [address] | [place], [place] | | | [facility] | [address] | [address] | | | TESTS | | | | + + + + + CAPILLARY BLOOD GLUCOSE (NO CHG), POC (07/19/2019 8:53 AM PDT) + +---------+ + + + | Component | Value | Ref Range | Performed | Pathologist | | | | | At | Signature | + +---------+ + + + | BLOOD | 166 (H) | 70 - 99 mg/dL | [facility] - | | | GLUCOSE, | | | [facility] | | | POC | | | [facility] | | | | | | OF CARE | | | | | | TESTS | | + +---------+ + + + + + | Specimen | + + | Blood | + + + + + + + | Performing | Address | City/State/Zipcode | Phone Number | | Organization | | | | + + + + + | [facility] | [address] | [place], [place] | | | [facility] | [facility] | [address] | | | TESTS | | | | + + + + + CAPILLARY BLOOD GLUCOSE (NO CHG), POC (07/19/2019 8:11 AM PDT) + +---------+ + + + | Component | Value | Ref Range | Performed | Pathologist | | | | | At | Signature | + +---------+ + + + | BLOOD | 151 (H) | 70 - 99 mg/dL | [facility] - | | | GLUCOSE, | | | [facility] | | | POC | | | [facility] | | | | | | OF CARE | | | | | | TESTS | | + +---------+ + + + + + | Specimen | + + | Blood | + + + + + + + | Performing | Address | City/State/Zipcode | Phone Number | | Organization | | | | + + + + + | [facility] | [address] | [place], [place] | | | [facility] | [facility] | [address] | | | TESTS | | | | + + + + + CAPILLARY BLOOD GLUCOSE (NO CHG), POC (07/19/2019 7:07 AM PDT) + +---------+ + + + | Component | Value | Ref Range | Performed | Pathologist | | | | | At | Signature | + +---------+ + + + | BLOOD | 156 (H) | 70 - 99 mg/dL | [facility] - | | | GLUCOSE, | | | [facility] | | | POC | | | [facility] | | | | | | OF CARE | | | | | | TESTS | | + +---------+ + + + + + | Specimen | + + | Blood | + + + + + + + | Performing | Address | City/State/Zipcode | Phone Number | | Organization | | | | + + + + + | [facility] | [address] | [place], [place] | | | [facility] | [address] | [address] | | | TESTS | | | | + + + + + CBC (HEMOGRAM) ONLY (07/19/2019 5:52 AM PDT) + + + + + + | Component | Value | Ref Range | Performed | Pathologist | | | | | At | Signature | + + + + + + | WHITE CELL | 7.00 | 3.50 - 10.80 | [facility] | | | COUNT | | K/cu mm | LABORATORY | | | | | | SERVICES, | | | | | | CORE | | + + + + + + | RED CELL | 2.03 (L) | 4.50 - 6.00 | [facility] [...] + + + + | HEMATOCRIT | 21.3 (L) | 41.0 - 53.0 % | [facility] | | | | | | LABORATORY | | | | | | SERVICES, | | | | | | CORE | | + + + + + + | MCV | 104.9 (H) | 80.0 - 100.0 fL | [facility] | | | | | | LABORATORY | | | | | | SERVICES, | | | | | | CORE | | + + + + + + | MCHC | 35.7 | 32.0 - 36.0 | [facility] | | | | | g/dL | LABORATORY | | | | | | SERVICES, | | | | | | CORE | | + + + + + + | RDW SD | 49.0 (H) | 35.1 - 46.3 fL | [facility] | | | | | | LABORATORY | | | | | | SERVICES, | | | | | | CORE | | + + + + + + | PLATELET | 37 (L) | 150 - 400 K/cu | [facility] | | | COUNT | | mm | LABORATORY | | | | | | SERVICES, | | | | | | CORE | | + + + + + + | MPV | 10.2 | 9.7 - 12.3 fL | [facility] [...] | + + + + + | [facility] | [address] | [place] [address] | | | SERVICES, CORE | [address] | | | + + + + + CAPILLARY BLOOD GLUCOSE (NO CHG), POC (07/19/2019 5:49 AM PDT) + +---------+ + + + | Component | Value | Ref Range | Performed | Pathologist | | | | | At | Signature | + +---------+ + + + | BLOOD | 144 (H) | 70 - 99 mg/dL | [facility] - | | | GLUCOSE, | | | [facility] | | | POC | | | [facility] | | | | | | [facility] | | | | | | TESTS | | + +---------+ + + + + + | Specimen | + + | Blood | + + + + + + + | Performing | Address | City/State/Zipcode | Phone Number | | Organization | | | | + + + + + | [facility] | [address] | [place], [place] | | | [facility] | [address] | [address] | | | TESTS | | | | + + + + + CAPILLARY BLOOD GLUCOSE (NO CHG), POC (07/19/2019 4:39 AM PDT) + +---------+ + + + | Component | Value | Ref Range | Performed | Pathologist | | | | | At | Signature | + +---------+ + + + | BLOOD | 170 (H) | 70 - 99 mg/dL | [facility] - | | | GLUCOSE, | | | [facility] | | | POC | | | [facility] | | | | | | [facility]ARE | | | | | | TESTS | | + +---------+ + + + + + | Specimen | + + | Blood | + + + + + + + | Performing | Address | City/State/Zipcode | Phone Number | | Organization | | | | + + + + + | [facility] | [address] | [place], [place] | | | [facility] | [facility] | [address] | | | TESTS | | | | + + + + + CAPILLARY BLOOD GLUCOSE (NO CHG), POC (07/19/2019 3:03 AM PDT) + +---------+ + + + | Component | Value | Ref Range | Performed | Pathologist | | | | | At | Signature | + +---------+ + + + | BLOOD | 185 (H) | 70 - 99 mg/dL | [facility] - | | | GLUCOSE, | | | [facility] | | | POC | | | [facility] | | | | | | [facility]ARE | | | | | | TESTS | | + +---------+ + + + + + | Specimen | + + | Blood | + + + + + + + | Performing | Address | City/State/Zipcode | Phone Number | | Organization | | | | + + + + + | [facility] | [address] | [place], [place] | | | [facility] | [address] | [address] | | | TESTS | | | | + + + + + CAPILLARY BLOOD GLUCOSE (NO CHG), POC (07/19/2019 2:07 AM PDT) + +---------+ + + + | Component | Value | Ref Range | Performed | Pathologist | | | | | At | Signature | + +---------+ + + + | BLOOD | 191 (H) | 70 - 99 mg/dL | [facility] - | | | GLUCOSE, | | | [facility] | | | POC | | | [facility] | | | | | | [facility] | | | | | | TESTS | | + +---------+ + + + + + | Specimen | + + | Blood | + + + + + + + | Performing | Address | City/State/Zipcode | Phone Number | | Organization | | | | + + + + + | [facility] | [address] | [place], [place] | | | [facility] | [address] | [address] | | | TESTS | | | | + + + + + CAPILLARY BLOOD GLUCOSE (NO CHG), POC (07/19/2019 1:20 AM PDT) + +---------+ + + + | Component | Value | Ref Range | Performed | Pathologist | | | | | At | Signature | + +---------+ + + + | BLOOD | 186 (H) | 70 - 99 mg/dL | [facility] - | | | GLUCOSE, | | | [facility] | | | POC | | | [facility] | | | | | | [facility] | | | | | | TESTS | | + +---------+ + + + + + | Specimen | + + | Blood | + + + + + + + | Performing | Address | City/State/Zipcode | Phone Number | | Organization | | | | + + + + + | [facility] | [address] | [place], [place] | | | [facility] | [facility] | [address] | | | TESTS | | | | + + + + + TROPONIN I, PLASMA (07/19/2019 12:13 AM PDT) + +-------+ + + + | Component | Value | Ref Range | Performed | Pathologist | | | | | At | Signature | + +-------+ + + + | TROPONIN I | 0.11 | <0.80 ng/mL | [facility] | | | | | | LABORATORY [...] | + + + + + | [facility] | [address] | [place] [address] | | | SERVICES, CORE | [address] | | | + + + + + PHOSPHORUS, PLASMA (07/19/2019 12:13 AM PDT) + +-------+ + + + | Component | Value | Ref Range | Performed | Pathologist | | | | | At | Signature | + +-------+ + + + | PHOSPHORUS, | 3.0 | 2.4 - 4.7 mg/dL | [facility] [...] | + + + + + | [facility] | [address] | [place] [address] | | | SERVICES, CORE | [address] | | | + + + + + MAGNESIUM, PLASMA (07/19/2019 12:13 AM PDT) + +---------+ + + + | Component | Value | Ref Range | Performed | Pathologist | | | | | At | Signature | + +---------+ + + + | MAGNESIUM,P | 2.7 (H) | 1.6 - 2.6 mg/dL | [facility] [...] + | [facility] | [address] | [place] [address] | | | SERVICES, CORE | [address] | | | + + + + + BASIC METABOLIC SET (NA, K, CL, TCO2, BUN, CR, GLU, CA) (07/19/2019 12:13 AM PDT) + +---------+ + + + | Component | Value | Ref Range | Performed | Pathologist | | | | | At | Signature | + +---------+ + + + | GLUCOSE, | 126 (H) | 70 - 99 mg/dL | [facility] | | | PLASMA | | | LABORATORY | | | (LAB) | | | SERVICES, | | | | | | CORE | | + +---------+ + + + | BUN, PLASMA | 36 (H) | 6 - 20 mg/dL | [facility] | | | (LAB) | | | LABORATORY | | | | | | SERVICES, | | | | | | CORE | | + +---------+ + + + | CREATININE | 1.21 | 0.70 - 1.30 | [facility] | | | PLASMA | | mg/dL | LABORATORY | | | (LAB) | | | SERVICES, | | | | | | CORE | | + +---------+ + + + | EGFR | >60 | >60 mL/min | [facility] | | | - | | | LABORATORY | | | TURKISH | | | SERVICES, | | | | | | CORE | | + +---------+ + + + | EGFR NON | >60 | >60 mL/min | [facility] | | | -JARRED | | | LABORATORY | | | RICAN | | | SERVICES, | | | | | | CORE | | + +---------+ + + + | SODIUM, | 137 | 136 - 145 | [facility] | | | PLASMA | | mmol/L | LABORATORY | | | (LAB) | | | SERVICES, | | | | | | CORE | | + +---------+ + + + | POTASSIUM, | 4.0 | 3.4 - 5.0 | [facility] | | | PLASMA | | mmol/L | LABORATORY | | | (LAB) | | | SERVICES, | | | | | | CORE | | + +---------+ + + + | CHLORIDE, | 103 | 97 - 108 mmol/L | [facility] | | | PLASMA | | | LABORATORY | | | (LAB) | | | SERVICES, | | | | | | CORE | | + +---------+ + + + | TOTAL CO2, | 27 | 21 - 32 mmol/L | [facility] | | | PLASMA | | | LABORATORY | | | (LAB) | | | SERVICES, | | | | | | CORE | | + +---------+ + + + | CALCIUM, | 8.8 | 8.6 - 10.2 | [facility] | | | PLASMA | | mg/dL | LABORATORY | | | (LAB) | | | SERVICES, | | | | | | CORE | | + +---------+ + + + | ANION GAP | 7 | 4 - 11 mmol/L | [facility] | | | | | | LABORATORY | | | | | | SERVICES, | | | | | | CORE | | + +---------+ + + + | POTASSIUM | No [...] MDRD equation recommended by the National | [facility] | | Kidney Disease Education Program. Estimated GFR Interpretive | LABORATORY | | Information: <60 mL/min/1.73 sq m Chronic Kidney | SERVICES, CORE | | Disease <15 mL/min/1.73 sq m Kidney Failure | | | Estimated GFR greater than 60 mL/min/1.73 sq m is of limited clinical | | | value. The MDRD equation is not valid in the following situations: - | | | Patients under 18 years of [...] | + + + + + | [facility] | [address] | [place] [address] | | | ARTIS [place] | [address] | | | + + + + + CBC (HEMOGRAM) ONLY (07/19/2019 12:01 AM PDT) + + + + + + | Component | Value | Ref Range | Performed | Pathologist | | | | | At | Signature | + + + + + + | WHITE CELL | 5.19 | 3.50 - 10.80 | [facility] | | | COUNT | | K/cu mm | LABORATORY | | | | | | SERVICES, | | | | | | CORE | | + + + + + + | RED CELL | 1.96 (L) | 4.50 - 6.00 | [facility] | | | COUNT | | M/cu mm | LABORATORY | | | | | | SERVICES, | | | | | | CORE | | + + + + + + | HEMOGLOBIN | 7.2 (L) | 13.5 - 17.5 | [facility] | | | | | g/dL | LABORATORY | | | | | | SERVICES, | | | | | | CORE | | + + + + + + | HEMATOCRIT | 20.2 (L) | 41.0 - 53.0 % | [facility] | | | | | | LABORATORY | | | | | | SERVICES, | | | | | | CORE | | + + + + + + | MCV | 103.1 (H) | 80.0 - 100.0 fL | [facility] | | | | | | LABORATORY | | | | | | SERVICES, | | | | | | CORE | | + + + + + + | MCHC | 35.6 | 32.0 - 36.0 | [facility] | | | | | g/dL | LABORATORY | | | | | | SERVICES, | | | | | | CORE | | + + + + + + | RDW SD | 47.8 (H) | 35.1 - 46.3 fL | [facility] | | | | | | LABORATORY | | | | | | SERVICES, | | | | | | CORE | | + + + + + + | PLATELET | 32 (L) | 150 - 400 K/cu | [facility] | | | COUNT | | mm | LABORATORY | | | | | | SERVICES, | | | | | | CORE | | + + + + + + | MPV | 10.2 | 9.7 - 12.3 fL | [facility] [...] | + + + + + | [facility] | [address] | [place] [address] | | | SERVICES, CORE | [address] | | | + + + + + CAPILLARY BLOOD GLUCOSE (NO CHG), POC (07/18/2019 11:17 PM PDT) + +---------+ + + + | Component | Value | Ref Range | Performed | Pathologist | | | | | At | Signature | + +---------+ + + + | BLOOD | 114 (H) | 70 - 99 mg/dL | [facility] | | | GLUCOSE, | | | [facility] | | | POC | | | [facility] | | | | | | OF CARE | | | | | | TESTS | | + +---------+ + + + + + | Specimen | + + | Blood | + + + + + + + | Performing | Address | City/State/Zipcode | Phone Number | | Organization | | | | + + + + + | [facility] | [address] | [place], [place] | | | [facility] | [facility] | [address] | | | TESTS | | | | + + + + + CAPILLARY BLOOD GLUCOSE (NO CHG), POC (07/18/2019 9:07 PM PDT) + +---------+ + + + | Component | Value | Ref Range | Performed | Pathologist | | | | | At | Signature | + +---------+ + + + | BLOOD | 127 (H) | 70 - 99 mg/dL | [facility] | | | GLUCOSE, | | | [facility] | | | POC | | | [facility] | | | | | | OF CARE | | | | | | TESTS | | + +---------+ + + + + + | Specimen | + + | Blood | + + + + + + + | Performing | Address | City/State/Zipcode | Phone Number | | Organization | | | | + + + + + | [facility] | [address] | [place], [place] | | | [facility] | [address] | [address] | | | TESTS | | | | + + + + + CAPILLARY BLOOD GLUCOSE (NO CHG), POC (07/18/2019 7:02 PM PDT) + +---------+ + + + | Component | Value | Ref Range | Performed | Pathologist | | | | | At | Signature | + +---------+ + + + | BLOOD | 133 (H) | 70 - 99 mg/dL | [facility] | | | GLUCOSE, | | | [facility] | | | POC | | | [facility] | | | | | | OF CARE | | | | | | TESTS | | + +---------+ + + + + + | Specimen | + + | Blood | + + + + + + + | Performing | Address | City/State/Zipcode | Phone Number | | Organization | | | | + + + + + | [facility] | [address] | [place], [place] | | | [facility] | [address] | [address] | | | TESTS | | | | + + + + + CBC (HEMOGRAM) ONLY (07/18/2019 6:03 PM PDT) + + + + + + | Component | Value | Ref Range | Performed | Pathologist | | | | | At | Signature | + + + + + + | WHITE CELL | 5.98 | 3.50 - 10.80 | [facility] | | | COUNT | | K/cu mm | LABORATORY | | | | | | SERVICES, | | | | | | CORE | | + + + + + + | RED CELL | 2.12 (L) | 4.50 - 6.00 | [facility] | | | COUNT | | M/cu mm | LABORATORY | | | | | | SERVICES, | | | | | | CORE | | + + + + + + | HEMOGLOBIN | 7.7 (L) | 13.5 - 17.5 | [facility] | | | | | g/dL | LABORATORY | | | | | | SERVICES, | | | | | | CORE | | + + + + + + | HEMATOCRIT | 22.2 (L) | 41.0 - 53.0 % | [facility] | | | | | | LABORATORY | | | | | | SERVICES, | | | | | | CORE | | + + + + + + | MCV | 104.7 (H) | 80.0 - 100.0 fL | [facility] | | | | | | LABORATORY | | | | | | SERVICES, | | | | | | CORE | | + + + + + + | MCHC | 34.7 | 32.0 - 36.0 | [facility] | | | | | g/dL | LABORATORY | | | | | | SERVICES, | | | | | | CORE | | + + + + + + | RDW SD | 48.7 (H) | 35.1 - 46.3 fL | [facility] | | | | | | LABORATORY | | | | | | SERVICES, | | | | | | CORE | | + + + + + + | PLATELET | 32 (L) | 150 - 400 K/cu | [facility] | | | COUNT | | mm | LABORATORY | | | | | | SERVICES, | | | | | | CORE | | + + + + + + | MPV | 10.6 | 9.7 - 12.3 fL | [facility] [...] + | [facility] | [address] | [place] [address] | | | SERVICES, CORE | [address] | | | + + + + + TROPONIN I, PLASMA (07/18/2019 6:03 PM PDT) + +-------+ + + + | Component | Value | Ref Range | Performed | Pathologist | | | | | At | Signature | + +-------+ + + + | TROPONIN I | 0.12 | <0.80 ng/mL | [facility] | | | | | [...] | + + + + + | [facility] | [address] | [place] [address] | | | SERVICES, ARTIS | [address] | | | + + + + + CAPILLARY BLOOD GLUCOSE (NO CHG), POC (07/18/2019 5:58 PM PDT) + +---------+ + + + | Component | Value | Ref Range | Performed | Pathologist | | | | | At | Signature | + +---------+ + + + | BLOOD | 146 (H) | 70 - 99 mg/dL | [facility] | | | GLUCOSE, | | | [facility] | | | POC | | | [facility] | | | | | | OF CARE | | | | | | TESTS | | + +---------+ + + + + + | Specimen | + + | Blood | + + + + + + + | Performing | Address | City/State/Zipcode | Phone Number | | Organization | | | | + + + + + | [facility] | [address] | [place], [place] | | | [facility] | [address] | [address] | | | TESTS | | | | + + + + + CAPILLARY BLOOD GLUCOSE (NO CHG), POC (07/18/2019 4:53 PM PDT) + +---------+ + + + | Component | Value | Ref Range | Performed | Pathologist | | | | | At | Signature | + +---------+ + + + | BLOOD | 150 (H) | 70 - 99 mg/dL | [facility] - | | | GLUCOSE, | | | [facility] | | | POC | | | [facility] | | | | | | OF CARE | | | | | | TESTS | | + +---------+ + + + + + | Specimen | + + | Blood | + + + + + + + | Performing | Address | City/State/Zipcode | Phone Number | | Organization | | | | + + + + + | [facility] | [address] | [place], [place] | | | [facility] [place] | [facility] | [address] | | | TESTS | | | | + + + + + CAPILLARY BLOOD GLUCOSE (NO CHG), POC (07/18/2019 3:47 PM PDT) + +---------+ + + + | Component | Value | Ref Range | Performed | Pathologist | | | | | At | Signature | + +---------+ + + + | BLOOD | 164 (H) | 70 - 99 mg/dL | [facility] | | | GLUCOSE, | | | [facility] | | | POC | | | [place] | | | | | | OF CARE | | | | | | TESTS | | + +---------+ + + + + + | Specimen | + + | Blood | + + + + + + + | Performing | Address | City/State/Zipcode | Phone Number | | Organization | | | | + + + + + | [facility] | [address] | [place], [place] | | | [facility] [place] | [address] | [address] | | | TESTS | | | | + + + + + PRODUCT - RED CELLS LEUKOREDUCED (07/18/2019 2:47 PM PDT) + + + + + + | Component | Value | Ref Range | Performed | Pathologist | | | | | At | Signature | + + + + + + | PRODUCT | -1 RED BLOOD CELLS | | [facility] | | | DESCRIPTION | LEUKOREDUCED | | LABORATORY | | | | | | SERVICES, | | | | | | TRANSFUSION | | | | | | MEDICINE | | + + + + + + | PRODUCT | [id number] | | [facility] | | | UNIT # | | | LABORATORY | | | | | | SERVICES, | | | | | | TRANSFUSION | | | | | | MEDICINE | | + + + + + + | UNIT ABO | A | | [facility] | | | | | | LABORATORY | | | | | | SERVICES, | | | | | | TRANSFUSION | | | | | | MEDICINE | | + + + + + + | UNIT RH | POS | | [facility] | | | | | | LABORATORY | | | | | | SERVICES, | | | | | | TRANSFUSION | | | | | | MEDICINE | | + + + + + + | STATUS OF | Returned to Blood Bank | | [facility] | | | UNIT | | | LABORATORY | | | | | | SERVICES, | | | | | | TRANSFUSION | | | | | | MEDICINE | | + + + + + + | EXPIRATION | [id number] | | [facility] | | | DATE | | | LABORATORY | | | | | | SERVICES, | | | | | | TRANSFUSION | | | | | | MEDICINE | | + + + + + + | BLOOD TYPE | [phone] | | [facility] | | | BARCODE | | | LABORATORY | | | | | | SERVICES, | | | | | | TRANSFUSION | | | | | | MEDICINE | | + + + + + + | BLOOD | [id number] | | [facility] | | | PRODUCT | | | LABORATORY | | | CODE | | | SERVICES, | | | | | | TRANSFUSION | | | | | | MEDICINE | | + + + + + + + + | Specimen | + + | | + + + + + + + | Performing | Address | City/State/Zipcode | Phone Number | | Organization | | | | + + + + + | [facility] | [address] | [place] [address] | | | SERVICES, | [address] | | | | TRANSFUSION MEDICINE | | | | + + + + + TRANSTHORACIC ECHOCARDIOGRAM, ADULT (07/18/2019 2:29 PM PDT) + + + + + + | Component | Value | Ref Range | Performed | Pathologist | | | | | At | Signature | + + + + + + | AOV VMN | 12.5 | | [facility] | | | (AORTIC | | | OF | | | VALVE) | | | CARDIOLOGY | | + + + + + + | BIPLANE, EF | 57 | | [facility] | | | | | | OF | | | | | | CARDIOLOGY | | + + + + + + | EJECTION | 55 to 60 | | [facility] | | | FRACTION | | | OF | | | | | | CARDIOLOGY | | + + + + + + | LA | 4.2 | | [facility] | | | DIMENSION | | | OF | | | | | | CARDIOLOGY | | + + + + + + | LVIDD | 5.7 | | [facility] | | | | | | OF | | | | | | CARDIOLOGY | | + + + + + + | MV A VMAX | 0.7 | | [facility] | | | | | | OF | | | | | | CARDIOLOGY | | + + + + + + | MV E VMAX | 1.0 | | [facility] | | | | | | OF | | | | | | CARDIOLOGY | | + + + + + + | RVSP | 41 | | [facility] | | | | | | OF | | | | | | CARDIOLOGY | | + + + + + + | TR VMAX | 3.1 | | [facility] | | | (TRICUSPID | | | OF | | | VALVE) | | | CARDIOLOGY | | + + + + + + | EJECTION | 57.5 | % | [facility] | | | FRACTION | | | OF | | | RANGE MEAN | | | CARDIOLOGY | | | VALUE | | | | | + + + + + + + + | Specimen | + + | | + + + + + | Narrative | Performed At | + + + | [facility] | [facility] | | [facility]ch[facility] [address] CARDIOLOGY | | [place], [place] [address] Ph: | | | Pt Name: DOUG LAWSON | | | Study Date/Time 07/18/2019 / 2:29:26 PMMRN: [id number] | | | Most recent prior: 04/21/2019Acc #: [id number] | | | No. previous echos: 2DOB: 1965 54 years | | | Heart Rate: 70 bpmHeight: 71.0 in | | | Blood Pressure: 86/65 mm/HgWeight: 180.0 lb | | | Gender: MBSA: 2.02 m | | | Order ID: [id number] Study | | | Location:Diet Aide: Dileep Loza [facility] [[email or web address]]Referring Provider: Chriss Leyva | | | GoldModalities Performed: 2D, Color flow, Spectral Doppler.Study | | | Quality: Good.Exam Indication: ArrhythmiaHistory: ESLD, atrial | | | arrhythmias. Patient history has been obtained from the EHR | | | Transthoracic Echocardiographic Report | | | + | | | ---------+ Final Impressions: | | | | | | | | | | | | | | | 1. The left ventricular size is normal. | | | 2. The LV function is | | | normal. | | | 3. The aortic valve is trileaflet and moderately | | | calcified. Mildly elevated aortic valve gradients in the setting | | | of high stroke volume. Calculated aortic valve area is | | | normal today. | | | 4. RV cavity size is mildly enlarged. RV wall thickness is | | | normal. RV global systolic function is normal. The estimated right | | | ventricular systolic pressure is mildly elevated (RVSP | | | = 40.9 mmHg). 5. | | | Compared to the most recent exam dated 04/21/2019, there are no | | | significant changes. | | | | | | | | | | | | + | | | + Description of Findings: Cardiac Rhythm: Normal sinus | | | rhythm.Left Ventricle: The left ventricular size is normal. Visually | | | estimated left ventricular ejection fraction is 55 - 60%. There is no | | | left ventricular hypertrophy. The ejection fraction is 57.4 % as | | | measured by Gomez's biplane method. The LV function is normal.Left | | | Ventricular Wall Motion: Left ventricular systolic thickening is | | | normal in all segments.Atria: Left atrial size is mildly dilated. | | | Normal right atrium.Right Ventricle: Right ventricular cavity size is | | | mildly enlarged. RV wall thickness is normal. The RV global systolic | | | function is normal.Aortic Valve: The aortic valve is trileaflet and | | | moderately calcified. No indication of aortic valve regurgitation. The | | | peak & mean transvalvular gradients are 26.5 mmHg and 15.0 mmHg | | | respectively. The DVI is 0.59. The calculated BOOM is 2.36 cm | | | using an LVOT diameter of 2.25 cm (continuity equation). The | | | indexed stroke volume is 52.3 ml/m | | | . Mildly elevated aortic valve gradients in the setting of high | | | stroke volume. Calculated aortic valve area is normal today.Mitral | | | Valve: The mitral valve is structurally normal. No evidence of mitral | | | valve stenosis. No evidence of mitral valve regurgitation.Tricuspid | | | Valve: The tricuspid valve is structurally normal. Mild tricuspid | | | regurgitation. The tricuspid regurgitant velocity is 3.08 m/s, and | | | with an assumed right atrial pressure of 3 mmHg, the estimated right | | | ventricular systolic pressure is mildly elevated at 40.9 mmHg.Pulmonic | | | Valve: The pulmonic valve is structurally normal. Trace pulmonary | | | valve regurgitation.Aorta: Visualized portions of the ascending aorta | | | and aortic root appear normal.Venous: Inferior vena cava is normal | | | with normal inspiratory collapse.Pericardium: No pericardial effusion | | | is seen.2D Measurements Doppler Measurements | | | 2D NL Values Aortic MitralLVID(d) | | | 5.70 (3.5-5.7cm) Max Mango 2.57 Peak E 1.01 | | | cm m/s | | | m/sLVID(s) 4.51 Mean grad 15.0 Peak | | | A 0.71 cm | | | mmHg m/sIVS(d) 0.98 (0.6-1.1cm) LVOT | | | Mango 1.37 E/A Ratio 1.42 cm | | | m/sLVPW(d) 1.09 (0.6-1.1cm) LVOT VTI 0.265 | | | TDI (E/e') cm | | | mLA A/Ps 2D 4.19 (2.7-3.9cm) LVOT Diam 2.25 MV mn gd | | | cm cmLVEDV 100.64 | | | LVOT SV 52.3 MR EROindex ml/m | | | indexed ml/m | | | Biplane EF 57.4 % Tricuspid Pulmonic | | | TR Vmax 3.08 PV Vmax | | | m/s | | | RA Press 3 RVOT VTI | | | 17.5 mmHg | | | cm | | | RVSP 41 PV mn gd | | | mmHg | | | Aorta: Index: | | | Ao Sinus 2.97 (2.1-3.5cm) | | | cm | | | Asc Ao 3.09 | | | (prox) cmEvaluation of chamber size and geometry is | | | accomplished through the incorporation of linear, volumetric, and | | | indexed values Report electronically signed by: [id number] Belén | | | Ravindra RUDD (07/18/2019, 4:07:16 PM) Final | | | Aorta: Index: | | | Ao Sinus 2.97 (2.1-3.5cm) | | | cm | | | Asc Ao 3.09 | | | (prox) cm | | |Evaluation of chamber size and geometry is accomplished through the incorporation of | | |linear, volumetric, and indexed values | | | | | |Report electronically signed by: [id number] Belén Waite MD (07/18/2019, 4:07:16 PM) | | | | | | | | | | | | Final | | + + + + + | Procedure Note | + + | Interface, Cardiology Results - 07/18/2019 4:07 PM [facility] | | [facility] Echocardiography Laboratory [address] [place] [address] | | [place], [place] [address] Pt Name: DOUG | | CHAN LAWSON Study Date/Time 07/18/2019 / 2:29:26 PMMRN: [id number] | | Most recent prior: 04/21/2019Acc #: [id number] No. previous echos: 2DOB: | | 1965 54 years Heart Rate: 70 bpmHeight: 71.0 in Blood | | Pressure: 86/65 mm/HgWeight: 180.0 lb Gender: MBSA: | | 2.02 m | | Order ID: [id number] Study Location:Diet Aide: Dileep Loza | | RDCSReferring Provider: Chriss Romano Performed: 2D, Color flow, Spectral | | Doppler.Study Quality: Good.Exam Indication: ArrhythmiaHistory: ESLD, atrial | | arrhythmias. Patient history has been obtained from the EHR Transthoracic | | Echocardiographic | | Report+ + | | Final Impressions: | | | | 1. The left ventricular | | size is normal. 2. The LV function is normal. | | 3. The aortic valve is trileaflet and | | moderately calcified. Mildly elevated aortic valve gradients in the setting of high | | stroke volume. Calculated aortic valve area is normal today. | | 4. RV cavity size is mildly enlarged. RV wall thickness is | | normal. RV global systolic function is normal. The estimated right ventricular | | systolic pressure is mildly elevated (RVSP = 40.9 mmHg). | | 5. Compared to the most recent exam dated 04/21/2019, there are no significant | | changes. | | | | + + | | Description of Findings: Cardiac Rhythm: Normal sinus rhythm.Left Ventricle: The left | | ventricular size is normal. Visually estimated left ventricular ejection fraction is 55 | | - 60%. There is no left ventricular hypertrophy. The ejection fraction is 57.4 % as | | measured by Gomez's biplane method. The LV function is normal.Left Ventricular Wall | | Motion: Left ventricular systolic thickening is normal in all segments.Atria: Left | | atrial size is mildly dilated. Normal right atrium.Right Ventricle: Right ventricular | | cavity size is mildly enlarged. RV wall thickness is normal. The RV global systolic | | function is normal.Aortic Valve: The aortic valve is trileaflet and moderately | | calcified. No indication of aortic valve regurgitation. The peak & mean transvalvular | | gradients are 26.5 mmHg and 15.0 mmHg respectively. The DVI is 0.59. The calculated BOOM | | is 2.36 cm | | using an LVOT diameter of 2.25 cm (continuity equation). The indexed stroke volume is | | 52.3 ml/m | | . Mildly elevated aortic valve gradients in the setting of high stroke volume. | | Calculated aortic valve area is normal today.Mitral Valve: The mitral valve is | | structurally normal. No evidence of mitral valve stenosis. No evidence of mitral valve | | regurgitation.Tricuspid Valve: The tricuspid valve is structurally normal. Mild | | tricuspid regurgitation. The tricuspid regurgitant velocity is 3.08 m/s, and with an | | assumed right atrial pressure of 3 mmHg, the estimated right ventricular systolic | | pressure is mildly elevated at 40.9 mmHg.Pulmonic Valve: The pulmonic valve is | | structurally normal. Trace pulmonary valve regurgitation.Aorta: Visualized portions of | | the ascending aorta and aortic root appear normal.Venous: Inferior vena cava is normal | | with normal inspiratory collapse.Pericardium: No pericardial effusion is seen.2D | | Measurements Doppler Measurements 2D NL Values Aortic | | MitralLVID(d) 5.70 (3.5-5.7cm) Max Mango 2.57 Peak E 1.01 cm | | m/s m/sLVID(s) 4.51 Mean grad | | 15.0 Peak A 0.71 cm mmHg | | m/sIVS(d) 0.98 (0.6-1.1cm) LVOT Mango 1.37 E/A Ratio 1.42 cm | | m/sLVPW(d) 1.09 (0.6-1.1cm) LVOT VTI 0.265 TDI (E/e') | | cm mLA A/Ps 2D 4.19 (2.7-3.9cm) LVOT Diam 2.25 MV mn gd | | cm cmLVEDV 100.64 LVOT SV 52.3 MR | | EROindex ml/m | | indexed ml/m | | Biplane EF 57.4 % Tricuspid Pulmonic TR | | Vmax 3.08 PV Vmax m/s | | RA Press 3 RVOT VTI 17.5 mmHg | | cm RVSP 41 PV mn gd | | mmHg Aorta: Index: | | Ao Sinus 2.97 (2.1-3.5cm) | | cm Asc Ao 3.09 (prox) | | cmEvaluation of chamber size and geometry is accomplished through the incorporation | | of linear, volumetric, and indexed values Report electronically signed by: [id number] | | Belén Waite MD (07/18/2019, 4:07:16 PM) Final | |Venous: Inferior vena cava is normal with normal inspiratory collapse. | |Pericardium: No pericardial effusion is seen. | |2D Measurements Doppler Measurements | | | | 2D NL Values Aortic Mitral | |LVID(d) 5.70 (3.5-5.7cm) Max Mango 2.57 Peak E 1.01 | | cm m/s m/s | |LVID(s) 4.51 Mean grad 15.0 Peak A 0.71 | | cm mmHg m/s | |IVS(d) 0.98 (0.6-1.1cm) LVOT Mango 1.37 E/A Ratio 1.42 | | cm m/s | |LVPW(d) 1.09 (0.6-1.1cm) LVOT VTI 0.265 TDI (E/e') | | cm m | |LA A/Ps 2D 4.19 (2.7-3.9cm) LVOT Diam 2.25 MV mn gd | | cm cm | |LVEDV 100.64 LVOT SV 52.3 MR ERO | |index ml/m indexed ml/m | |Biplane EF 57.4 % Tricuspid Pulmonic | | TR Vmax 3.08 PV Vmax | | m/s | | RA Press 3 RVOT VTI 17.5 | | mmHg cm | | RVSP 41 PV mn gd | | mmHg | | | | Aorta: Index: | | Ao Sinus 2.97 (2.1-3.5cm) | | cm | | Asc Ao 3.09 | | (prox) cm | |Evaluation of chamber size and geometry is accomplished through the incorporation of | |linear, volumetric, and indexed values | | | |Report electronically signed by: [id number] Belén Waite MD (07/18/2019, 4:07:16 PM) | | | | | | | | Final | + + + + + + + | Performing | Address | City/State/Zipcode | Phone Number | | Organization | | | | + + + + + | [facility] | [phone] | [place], [place] | | | CARDIOLOGY | [address] | [phone] | | + + + + + CAPILLARY BLOOD GLUCOSE (NO CHG), POC (07/18/2019 2:15 PM PDT) + +---------+ + + + | Component | Value | Ref Range | Performed | Pathologist | | | | | At | Signature | + +---------+ + + + | BLOOD | 194 (H) | 70 - 99 mg/dL | [facility] - | | | GLUCOSE, | | | [facility] | | | POC | | | [facility] | | | | | | [facility] CARE | | | | | | TESTS | | + +---------+ + + + + + | Specimen | + + | Blood | + + + + + + + | Performing | Address | City/State/Zipcode | Phone Number | | Organization | | | | + + + + + | [facility] | [address] | [place], [place] | | | [facility] | [address] | [address] | | | TESTS | | | | + + + + + CAPILLARY BLOOD GLUCOSE (NO CHG), POC (07/18/2019 1:18 PM PDT) + +---------+ + + + | Component | Value | Ref Range | Performed | Pathologist | | | | | At | Signature | + +---------+ + + + | BLOOD | 162 (H) | 70 - 99 mg/dL | [facility] | | | GLUCOSE, | | | [facility] | | | POC | | | [facility] | | | | | | OF CARE | | | | | | TESTS | | + +---------+ + + + + + | Specimen | + + | Blood | + + + + + + + | Performing | Address | City/State/Zipcode | Phone Number | | Organization | | | | + + + + + | [facility] | [address] | [place], [place] | | | [facility] | [address] | [address] | | | TESTS | | | | + + + + + CBC (HEMOGRAM) ONLY (07/18/2019 1:17 PM PDT) + + + + + + | Component | Value | Ref Range | Performed | Pathologist | | | | | At | Signature | + + + + + + | WHITE CELL | 6.74 | 3.50 - 10.80 | [facility] | | | COUNT | | K/cu mm | LABORATORY | | | | | | SERVICES, | | | | | | CORE | | + + + + + + | RED CELL | 1.85 (L) | 4.50 - 6.00 | [facility] | | | COUNT | | M/cu mm | LABORATORY | | | | | | SERVICES, | | | | | | CORE | | + + + + + + | HEMOGLOBIN | 6.8 (L) | 13.5 - 17.5 | [facility] | | | | | g/dL | LABORATORY | | | | | | SERVICES, | | | | | | CORE | | + + + + + + | HEMATOCRIT | 19.4 (L) | 41.0 - 53.0 % | [facility] | | | | | | LABORATORY | | | | | | SERVICES, | | | | | | CORE | | + + + + + + | MCV | 104.9 (H) | 80.0 - 100.0 fL | [facility] | | | | | | LABORATORY | | | | | | SERVICES, | | | | | | CORE | | + + + + + + | MCHC | 35.1 | 32.0 - 36.0 | [facility] | | | | | g/dL | LABORATORY | | | | | | SERVICES, | | | | | | CORE | | + + + + + + | RDW SD | 48.8 (H) | 35.1 - 46.3 fL | [facility] | | | | | | LABORATORY | | | | | | SERVICES, | | | | | | CORE | | + + + + + + | PLATELET | 33 (L) | 150 - 400 K/cu | [facility] | | | COUNT | | mm | LABORATORY | | | | | | SERVICES, | | | | | | CORE | | + + + + + + | MPV | Comment: Not Measured | | [facility] | | | | [...] + | [facility] | [address] | [place] [address] | | | SERVICES, CORE | [address] | | | + + + + + TROPONIN I, PLASMA (07/18/2019 1:17 PM PDT) + +-------+ + + + | Component | Value | Ref Range | Performed | Pathologist | | | | | At | Signature | + +-------+ + + + | TROPONIN I | 0.13 | <0.80 ng/mL | [facility] | | | | | [...] | + + + + + | [employer] | [address] | [place] [address] | | | SERVICES, [facility] | [address] | | | + + + + + CAPILLARY BLOOD GLUCOSE (NO CHG), POC (07/18/2019 12:16 PM PDT) + +---------+ + + + | Component | Value | Ref Range | Performed | Pathologist | | | | | At | Signature | + +---------+ + + + | BLOOD | 194 (H) | 70 - 99 mg/dL | [facility] | | | GLUCOSE, | | | [facility] | | | POC | | | [facility] | | | | | | OF CARE | | | | | | TESTS | | + +---------+ + + + + + | Specimen | + + | Blood | + + + + + + + | Performing | Address | City/State/Zipcode | Phone Number | | Organization | | | | + + + + + | [facility] | [address] | [place], [place] | | | [facility] | [address] | [address] | | | TESTS | | | | + + + + + CAPILLARY BLOOD GLUCOSE (NO CHG), POC (07/18/2019 11:09 AM PDT) + +---------+ + + + | Component | Value | Ref Range | Performed | Pathologist | | | | | At | Signature | + +---------+ + + + | BLOOD | 172 (H) | 70 - 99 mg/dL | [facility] | | | GLUCOSE, | | | [facility] | | | POC | | | [facility] | | | | | | OF CARE | | | | | | TESTS | | + +---------+ + + + + + | Specimen | + + | Blood | + + + + + + + | Performing | Address | City/State/Zipcode | Phone Number | | Organization | | | | + + + + + | [facility] | [address] | [place], [place] | | | [facility] | [facility] | [address] | | | TESTS | | | | + + + + + CAPILLARY BLOOD GLUCOSE (NO CHG), POC (07/18/2019 10:05 AM PDT) + +---------+ + + + | Component | Value | Ref Range | Performed | Pathologist | | | | | At | Signature | + +---------+ + + + | BLOOD | 163 (H) | 70 - 99 mg/dL | [facility] | | | GLUCOSE, | | | [facility] | | | POC | | | [facility] | | | | | | OF CARE | | | | | | TESTS | | + +---------+ + + + + + | Specimen | + + | Blood | + + + + + + + | Performing | Address | City/State/Zipcode | Phone Number | | Organization | | | | + + + + + | [facility] | [address] | [place], [place] | | | [facility] | [address] | [address] | | | TESTS | | | | + + + + + ARASELI CORADO (07/18/2019 9:44 AM PDT) + +--------+ + + + | Component | Value | Ref Range | Performed | Pathologist | | | | | At | Signature | + +--------+ + + + | NEUTROPHIL( | 81 (H) | 0 - 25 % | [facility] | | | [facility] [place]) | | | LABORATORY | | | | | | SERVICES, | | | | | | CORE | | + +--------+ + + + | LYMPHOCYTES | 15 | % | [facility] | | | ([place]) | | | LABORATORY | | | | | | SERVICES, | | | | | | CORE | | + +--------+ + + + | MONOCYTES(S | 4 | % | [facility] | | | [place] [place]) | | | LABORATORY | | | | | | SERVICES, | | | | | | CORE | | + +--------+ + + + | MACROPHAGES | 0 | % | [facility] | | | ([place]) | | | LABORATORY | | | | | | SERVICES, | | | | | | CORE | | + +--------+ + + + | EOSINOPHILS | 0 | % | [facility] | | | ([place]) | | | LABORATORY | | | | | | SERVICES, | | | | | | CORE | | + +--------+ + + + | BASOPHILS(S | 0 | % | [facility] | | | [place]) | | | LABORATORY | | | | | | SERVICES, | | | | | | CORE | | + +--------+ + + + | REACTIVE | 0 | % | [facility] | | | LYMPHS(SYN | | | LABORATORY | | | [place]) | | | SERVICES, | | | | | | CORE | | + +--------+ + + + | SYNOVIAL | 0 | % | [facility] | | | CELLS | | | LABORATORY | | | | | | SERVICES, | | | | | | CORE | | + +--------+ + + + | ATYPICAL | 0 | 0.0 % | [facility] | | | CELLS(SYN | | | LABORATORY | | | [place]) | | | SERVICES, | | | | | | CORE | | + +--------+ + + + | TOTAL CELLS | 100 | | [facility] | | | COUNTED | | | LABORATORY | | | | | | SERVICES, | | | | | | CORE | | + +--------+ + + + + + | Specimen | + + | Synovial fluid - | | Structure of right | | knee region (body | | structure) | + + + + + + + | Performing | Address | City/State/Zipcode | Phone Number | | Organization | | | | + + + + + | [facility] | [address] | [place] [address] | | | SERVICES, CORE | [address] | | | + + + + + CELL COUNT, SYN [place] (07/18/2019 9:44 AM PDT) + +---------+ + + + | Component | Value | Ref Range | Performed | Pathologist | | | | | At | Signature | + +---------+ + + + | WBC | 330 (H) | 0 - 200 /cu mm | [facility] | | | SYNOVIAL | | | LABORATORY | | | FLUID | | | SERVICES, | | | | | | CORE | | + +---------+ + + + | RBC | 250,000 | /cu mm | [facility] | | | SYNOVIAL | | | LABORATORY | | | FLUID | | | SERVICES, | | | | | | CORE | | + +---------+ + + + + + | Specimen | + + | Synovial fluid - | | Structure of right | | knee region (body | | structure) | + + + + + | Narrative | Performed At | + + + | Large clot present, interpret results with caution. | [facility] | | | LABORATORY | | | [facility] | + + + + + + + + | Performing | Address | City/State/Zipcode | Phone Number | | Organization | | | | + + + + + | [facility] | [address] | [place] [address] | | | SERVICES, [facility] | [address] | | | + + + + + CULTURE, FUNGAL EXCEPT BLOOD, SKIN, HAIR, NAIL (07/18/2019 9:43 AM PDT) + + | Specimen | + + | Fluid - Knee region | | structure (body | | structure) | + + + + + | Narrative | Performed At | + + + | Culture Report: No fungus isolated at 3 weeks. | [facility] | [facility] | | | [place] | + + + + + + + + | Performing | Address | City/State/Zipcode | Phone Number | | Organization | | | | + + + + + | [facility] | [address] | [place] [address] | | | [facility] | | | | + + + + + SYNOVIAL FLUID, CRYSTALS (07/18/2019 9:43 AM PDT) + + + + + + | Component | Value | Ref Range | Performed | Pathologist | | | | | At | Signature | + + + + + + | CRYSTALS | Negative | Negative | [facility] | | | | | | LABORATORY | | | | | | SERVICES, | | | | | | CORE | | + + + + + + + + | Specimen | + + | Synovial fluid - | | Structure of right | | knee region (body | | structure) | + + + + + + + | Performing | Address | City/State/Zipcode | Phone Number | | Organization | | | | + + + + + | [facility] | [address] | [place] [address] | | | SERVICES, CORE | [address] | | | + + + + + YUMIKO BECK (07/18/2019 9:43 AM PDT) + + + + + + | Component | Value | Ref Range | Performed | Pathologist | | | | | At | Signature | + + + + + + | GRAM STAIN | No organisms | No organisms | [facility] | | | RESULT | seenComment: White blood | seen | LABORATORY | | | | cells present. | | SERVICES, | | | | | | CORE | | + + + + + + | SMEAR | Direct smear | | [facility] | | | PREPARATION | | | LABORATORY | | | | | | SERVICES, | | | | | | CORE | | + + + + + + | SOURCE BODY | R Knee | | [facility] | | | SITE | | | LABORATORY | | | | | | SERVICES, | | | | | | CORE | | + + + + + + + + | Specimen | + + | Fluid - Structure of | | right knee region | | (body structure) | + + + + + + + | Performing | Address | City/State/Zipcode | Phone Number | | Organization | | | | + + + + + | [facility] | [address] | [place] [address] | | | SERVICES, CORE | [address] | | | + + + + + CK, PLASMA (07/18/2019 8:58 AM PDT) + +--------+ + + + | Component | Value | Ref Range | Performed | Pathologist | | | | | At | Signature | + +--------+ + + + | CK | 23 (L) | 49 - 397 U/L | [facility] | | | | | | LABORATORY | | | | | | SERVICES, | | | | | | CORE | | + +--------+ + + + + + | Specimen | + + | Blood - Blood | | (substance) | + + + + + + + | Performing | Address | City/State/Zipcode | Phone Number | | Organization | | | | + + + + + | [facility] | [address] | [place] [address] | | | SERVICES, CORE | [address] | | | + + + + + CBC AND AUTO DIFF (07/18/2019 8:58 AM PDT) + + + + + + | Component | Value | Ref Range | Performed | Pathologist | | | | | At | Signature | + + + + + + | WHITE CELL | 8.19 | 3.50 - 10.80 | [facility] | | | COUNT | | K/cu mm | LABORATORY | | | | | | SERVICES, | | | | | | CORE | | + + + + + + | RED CELL | 2.11 (L) | 4.50 - 6.00 | [facility] | | | COUNT | | M/cu mm | LABORATORY | | | | | | SERVICES, | | | | | | CORE | | + + + + + + | HEMOGLOBIN | 7.8 (L) | 13.5 - 17.5 | [facility] | | | | | g/dL | LABORATORY | | | | | | SERVICES, | | | | | | CORE | | + + + + + + | HEMATOCRIT | 21.9 (L) | 41.0 - 53.0 % | [facility] | | | | | | LABORATORY | | | | | | SERVICES, | | | | | | CORE | | + + + + + + | MCV | 103.8 (H) | 80.0 - 100.0 fL | [facility] | | | | | | LABORATORY | | | | | | SERVICES, | | | | | | CORE | | + + + + + + | MCHC | 35.6 | 32.0 - 36.0 | [facility] | | | | | g/dL | LABORATORY | | | | | | SERVICES, | | | | | | CORE | | + + + + + + | RDW SD | 47.8 (H) | 35.1 - 46.3 fL | [facility] | | | | | | LABORATORY | | | | | | SERVICES, | | | | | | CORE | | + + + + + + | PLATELET | 34 (L) | 150 - 400 K/cu | [facility] | | | COUNT | | mm | LABORATORY | | | | | | SERVICES, | | | | | | CORE | | + + + + + + | MPV | 10.4 | 9.7 - 12.3 fL | [facility] [...] + + + + | NEUTROPHIL | 79.8 (H) | 50.0 - 70.0 % | [facility] | | | % | | | LABORATORY | | | | | | SERVICES, | | | | | | CORE | | + + + + + + | LYMPHOCYTE | 9.4 (L) | 18.0 - 42.0 % | [facility] | | | % | | | LABORATORY | | | | | | SERVICES, | | | | | | CORE | | + + + + + + | MONOCYTE % | 7.1 | 3.5 - 9.0 % | [facility] | | | | | | LABORATORY | | | | | | SERVICES, | | | | | | CORE | | + + + + + + | EOS % | 1.6 | 1.0 - 3.0 % | [facility] [...] + + + + | IG% | 1.7 (H)Comment: | 0.0 - 1.0 % | [facility] | | | | Increased immature | | LABORATORY | | | | granulocytes (IG) define | | SERVICES, | | | | a left shift. Immature | | CORE | | | | granulocytes (IG) are | | | | | | an automated count of | | | | | | metamyelocytes, | | | | | | myelocytes and | | | | | | promyelocytes. Bands | | | | | | are not included in the | | | | | | IG count. Bands are | | | | | | included in the | | | | | | neutrophil count. | | | | + + + + + + | NEUTROPHIL | 6.54 | 1.80 - 7.70 | [facility] | | | # | | K/cu mm | LABORATORY | | | | | | SERVICES, | | | | | | CORE | | + + + + + + | LYMPHOCYTE | 0.77 (L) | 1.00 - 4.80 | [facility] | | | # | | K/cu mm | LABORATORY | | | | | | SERVICES, | | | | | | CORE | | + + + + + + | MONOCYTE # | 0.58 | 0.10 - 0.90 | [facility] | | | | | K/cu mm | LABORATORY | | | | | | SERVICES, | | | | | | CORE | | + + + + + + | EOS # | 0.13 | 0.00 - 0.50 | [facility] | [...] + + + + | IG# | 0.14 (H) | 0.00 - 0.10 | [facility] | [...] + | [facility] | [address] | [place] [address] | | | SERVICES, CORE | [address] | | | + + + + + PHOSPHORUS, PLASMA (07/18/2019 8:58 AM PDT) + +---------+ + + + | Component | Value | Ref Range | Performed | Pathologist | | | | | At | Signature | + +---------+ + + + | PHOSPHORUS, | 2.3 (L) | 2.4 - 4.7 mg/dL | [facility] [...] | + + + + + | [employer] | [address] | [place] [address] | | | SERVICES, CORE | [address] | | | + + + + + TSH (07/18/2019 8:58 AM PDT) + + + + + + | Component | Value | Ref Range | Performed | Pathologist | | | | | At | Signature | + + + + + + | TSH | 0.47 (L) | 0.50 - 5.07 | [facility] | | | | | mIU/L | LABORATORY | | | | | | SERVICES, | | | | | | CORE | | + + + + + + + + | Specimen | + + | Blood - Blood | | (substance) | + + + + + | Narrative | Performed At | + + + | TSH reference ranges are influenced by a variety of environmental | [facility] | | influences, age, gender and ethnicity. The supplied reference limits | LABORATORY | | are based on published values utilizing a similar TSH assay, and | SERVICES, CORE | | should be interpreted with caution. | | + + + + + + + + | Performing | Address | City/State/Zipcode | Phone Number | | Organization | | | | + + + + + | [facility] | [address] | [place] [address] | | | SERVICES, CORE | [address] | | | + + + + + FREE T4 (07/18/2019 8:58 AM PDT) + +---------+ + + + | Component | Value | Ref Range | Performed | Pathologist | | | | | At | Signature | + +---------+ + + + | FREE T4 | 1.6 (H) | 0.6 - 1.2 ng/dL | [facility] | | | | | [...] + | [facility] | [address] | [place] [address] | | | SERVICES, CORE | [address] | | | + + + + + MAGNESIUM, PLASMA (07/18/2019 8:58 AM PDT) + +-------+ + + + [...] + | [facility] | [address] | [place] [address] | | | SERVICES, CORE | [address] | | | + + + + + BASIC METABOLIC SET (NA, K, CL, TCO2, BUN, CR, GLU, CA) (07/18/2019 8:58 AM PDT) + +---------+ + + + | Component | Value | Ref Range | Performed | Pathologist | | | | | At | Signature | + +---------+ + + + | GLUCOSE, | 154 (H) | 70 - 99 mg/dL | [facility] | | | PLASMA | | | LABORATORY | | | (LAB) | | | SERVICES, | | | | | | CORE | | + +---------+ + + + | BUN, PLASMA | 42 (H) | 6 - 20 mg/dL | [facility] | | | (LAB) | | | LABORATORY | | | | | | SERVICES, | | | | | | CORE | | + +---------+ + + + | CREATININE | 1.20 | 0.70 - 1.30 | [facility] | | | PLASMA | | mg/dL | LABORATORY | | | (LAB) | | | SERVICES, | | | | | | CORE | | + +---------+ + + + | EGFR | >60 | >60 mL/min | [facility] | | | - | | | LABORATORY | | | TURKISH | | | SERVICES, | | | | | | CORE | | + +---------+ + + + | EGFR NON | >60 | >60 mL/min | [facility] | | | -JARRED | | | LABORATORY | | | RICAN | | | SERVICES, | | | | | | CORE | | + +---------+ + + + | SODIUM, | 136 | 136 - 145 | [facility] | | | PLASMA | | mmol/L | LABORATORY | | | (LAB) | | | SERVICES, | | | | | | CORE | | + +---------+ + + + | POTASSIUM, | 4.0 | 3.4 - 5.0 | [facility] | | | PLASMA | | mmol/L | LABORATORY | | | (LAB) | | | SERVICES, | | | | | | CORE | | + +---------+ + + + | CHLORIDE, | 101 | 97 - 108 mmol/L | [facility] | | | PLASMA | | | LABORATORY | | | (LAB) | | | SERVICES, | | | | | | CORE | | + +---------+ + + + | TOTAL CO2, | 30 | 21 - 32 mmol/L | [facility] | | | PLASMA | | | LABORATORY | | | (LAB) | | | SERVICES, | | | | | | CORE | | + +---------+ + + + | CALCIUM, | 8.9 | 8.6 - 10.2 | [facility] | | | PLASMA | | mg/dL | LABORATORY | | | (LAB) | | | SERVICES, | | | | | | CORE | | + +---------+ + + + | ANION GAP | 5 | 4 - 11 mmol/L | [facility] | | | | | | LABORATORY | | | | | | SERVICES, | | | | | | CORE | | + +---------+ + + + | POTASSIUM | No [...] MDRD equation recommended by the National | [facility] | | Kidney Disease Education Program. Estimated GFR Interpretive | LABORATORY | | Information: <60 mL/min/1.73 sq m Chronic Kidney | SERVICES, CORE | | Disease <15 mL/min/1.73 sq m Kidney Failure | | | Estimated GFR greater than 60 mL/min/1.73 sq m is of limited clinical | | | value. The MDRD equation is not valid in the following situations: - | | | Patients under 18 years of [...] | + + + + + | [facility] | [address] | [place] [address] | | | [facility] | [address] | | | + + + + + LACTATE (07/18/2019 8:58 AM PDT) + +-------+ + + + | Component | Value | Ref Range | Performed | Pathologist | | | | | At | Signature | + +-------+ + + + | LACTATE | 2.4 | mmol/L | [facility] | | | | | | LABORATORY | | | | | | SERVICES, | | | | | | CORE | | + +-------+ + + + + + | Specimen | + + | Blood - Blood | | (substance) | + + + + + | Narrative | Performed At | + + + | Reference Range: Venous blood: 0.5 - 2.2 mmol/L Critical >= 4.0 | [facility] | | mmol/L Arterial blood: 0.5 - 1.6 mmol/L Critical >= 4.0 mmol/L | LABORATORY | | | [facility] | + + + + + + + + | Performing | Address | City/State/Zipcode | Phone Number | | Organization | | | | + + + + + | [facility] | [address] | [place] [address] | | | CLAUDIA, ART[facility] | [address] | | | + + + + + TROPONIN I, PLASMA (07/18/2019 8:58 AM PDT) + +-------+ + + + | Component | Value | Ref Range | Performed | Pathologist | | | | | At | Signature | + +-------+ + + + | TROPONIN I | 0.11 | <0.80 ng/mL | [facility] | | | | | [...] + | [facility] | [address] | [place] [address] | | | SERVICES, CORE | [address] | | | + + + + + NT-PRO BNP (07/18/2019 8:58 AM PDT) + + + + + + | Component | Value | Ref Range | Performed | Pathologist | | | | | At | Signature | + + + + + + | NT-PRO BNP | 2,564 (H) | <125 pg/mL | [facility] | [...] | + + + + + | [facility] | [address] | [place] [address] | | | SERVICES, CORE | [address] | | | + + + + + SEDIMENTATION RATE (07/18/2019 8:58 AM PDT) + +-------+ + + + | Component | Value | Ref Range | Performed | Pathologist | | | | | At | Signature | + +-------+ + + + | SEDIMENTATI | 1 | 0 - 20 mm/hr | [facility] | | | ON RATE | | | LABORATORY | | | [...] | + + + + + | [facility] | [address] | [place] [address] | | | SERVICES, CORE | [address] | | | + + + + + C-REACTIVE PROTEIN (07/18/2019 8:58 AM PDT) + +-------+ + + + | Component | Value | Ref Range | Performed | Pathologist | | | | | At | Signature | + +-------+ + + + | C-REACTIVE | 4.3 | <10.0 mg/L | [facility] | | | PROTEIN | | | LABORATORY | | | [...] | + + + + + | [facility] | [address] | [place] [address] | | | [facility] | [address] | | | + + + + + CAPILLARY BLOOD GLUCOSE (NO CHG), POC (07/18/2019 8:57 AM PDT) + +---------+ + + + | Component | Value | Ref Range | Performed | Pathologist | | | | | At | Signature | + +---------+ + + + | BLOOD | 153 (H) | 70 - 99 mg/dL | [facility] - | | | GLUCOSE, | | | [facility] | | | POC | | | [facility] | | | | | | OF CARE | | | | | | TESTS | | + +---------+ + + + + + | Specimen | + + | Blood | + + + + + + + | Performing | Address | City/State/Zipcode | Phone Number | | Organization | | | | + + + + + | [facility] | [address] | [place], [place] | | | [facility] | [address] | [address] | | | TESTS | | | | + + + + + X-RAY KNEE 2 VIEWS RIGHT (07/18/2019 8:19 AM PDT) + + | Specimen | + + | | + + + + + | Narrative | Performed At | + + + | EXAM: KNEE 2 VIEWS RIGHT HISTORY: concern for septic arthritis | [facility] | | COMPARISON: 07/17/2019 FINDINGS: There is soft tissue | RADIOLOGY VOICE | | swelling about the anterior knee and small knee effusion. Old healed | RECOGNITION 2 | | fracture deformities of the proximal tibia and fibula with intact | | | screws in the proximal tibia. There is no fracture or osseous | | | destruction. Femorotibial alignment is normal. IMPRESSION: | | | Soft tissue swelling about the anterior aspect of the knee and small | | | knee effusion. Old healed fracture deformities of the proximal tibia | | | and fibula with intact tibial screws. No acute osseous abnormality. | | | I have personally reviewed the images and, if necessary, edited the | | | report. I agree with the report as now presented. Final | | | signature: Deo Calvo MD 07/18/2019 11:51 AM Preliminary: Deo Banks | Darren Calvo MD Dictation initiated: Deo Calvo MD 07/18/2019 | | | 11:48 AM | | + + + + + | Procedure Note | + + | Service Account, Radiant Res In Interface - 07/18/2019 11:52 AM PDT EXAM: KNEE 2 | | VIEWS RIGHT HISTORY: concern for septic arthritis COMPARISON: 07/17/2019 FINDINGS: There | | is soft tissue swelling about the anterior knee and small knee effusion. Old healed | | fracture deformities of the proximal tibia and fibula with intact screws in the proximal | | tibia. There is no fracture or osseous destruction. Femorotibial alignment is normal. | | IMPRESSION: Soft tissue swelling about the anterior aspect of the knee and small knee | | effusion. Old healed fracture deformities of the proximal tibia and fibula with intact | | tibial screws. No acute osseous abnormality. I have personally reviewed the images and, | | if necessary, edited the report. I agree with the report as now presented. Final | | signature: Deo Calvo MD 07/18/2019 11:51 AM Preliminary: Deo Calov MD | | Dictation initiated: Deo Calvo MD 07/18/2019 11:48 AM | | | |IMPRESSION: | | | |Soft tissue swelling about the anterior aspect of the knee and small knee effusion. Old hea led fracture deformities of the proximal tibia and fibula with intact tibial screws. No acut e osseous abnormality. | | | |I have personally reviewed the images and, if necessary, edited the report. I agree with e report as now presented. | | | |Final signature: Deo Calvo MD 07/18/2019 11:51 AM | |Preliminary: Deo Calvo MD | |Dictation initiated: Deo Calvo MD 07/18/2019 11:48 AM | + + + +---------+ + + | Performing | Address | City/State/Zipcode | Phone Number | | Organization | | | | + +---------+ + + | [facility] | | | | | VOICE RECOGNITION 2 | | | | + +---------+ + + CAPILLARY BLOOD GLUCOSE (NO CHG), POC (07/18/2019 8:18 AM PDT) + +---------+ + + + | Component | Value | Ref Range | Performed | Pathologist | | | | | At | Signature | + +---------+ + + + | BLOOD | 151 (H) | 70 - 99 mg/dL | [facility] - | | | GLUCOSE, | | | [facility] | | | POC | | | [facility] | | | | | | [facility] CARE | | | | | | TESTS | | + +---------+ + + + + + | Specimen | + + | Blood | + + + + + + + | Performing | Address | City/State/Zipcode | Phone Number | | Organization | | | | + + + + + | [facility] | [address] | [place], [place] | | | [facility] | [address] | [address] | | | TESTS | | | | + + + + + X-RAY PORTABLE CHEST 1 VIEW (07/18/2019 8:17 AM PDT) + + | Specimen | + + | | + + + + + | Narrative | Performed At | + + + | EXAM: AR CHEST 1 VIEW HISTORY: Shock, not elsewhere classified | [facility] | | COMPARISON: 04/21/2019. FINDINGS: The cardiomediastinal | RADIOLOGY VOICE | | contour is unchanged. There is mild subsegmental bibasilar | RECOGNITION 2 | | atelectasis. The lungs are otherwise clear. There is no pleural | | | effusion or pneumothorax. There is no pulmonary edema. Compression | | | deformities in the lower thoracic spine appear unchanged. | | | IMPRESSION: Mild subsegmental basilar atelectasis. The lungs are | | | otherwise clear. I have personally reviewed the images and, if | | | necessary, edited the report. I agree with the report as now | | | presented. Final signature: Deo Calvo MD 07/18/2019 11:48 | | | AM Preliminary: Deo Calvo MD Dictation initiated: Deo Calvo MD 07/18/2019 11:46 AM | | + + + + + | Procedure Note | + + | Service Account, [employer] [facility] In Interface - 07/18/2019 11:49 AM PDT EXAM: AR CHEST 1 | | VIEW HISTORY: Shock, not elsewhere classified COMPARISON: 04/21/2019. FINDINGS: The | | cardiomediastinal contour is unchanged. There is mild subsegmental bibasilar | | atelectasis. The lungs are otherwise clear. There is no pleural effusion or | | pneumothorax. There is no pulmonary edema. Compression deformities in the lower thoracic | | spine appear unchanged. IMPRESSION: Mild subsegmental basilar atelectasis. The lungs | | are otherwise clear. I have personally reviewed the images and, if necessary, edited the | | report. I agree with the report as now presented. Final signature: Deo Calvo MD | | 07/18/2019 11:48 AM Preliminary: Deo Calvo MD Dictation initiated: Darren Ellis MD 07/18/2019 11:46 AM | | | |IMPRESSION: | | | |Mild subsegmental basilar atelectasis. The lungs are otherwise clear. | | | |I have personally reviewed the images and, if necessary, edited the report. I agree with th e report as now presented. | | | |Final signature: Deo Calvo MD 07/18/2019 11:48 AM | |Preliminary: Deo Calvo MD | |Dictation initiated: Deo Calvo MD 07/18/2019 11:46 AM | + + + +---------+ + + | Performing | Address | City/State/Zipcode | Phone Number | | Organization | | | | + +---------+ + + | [facility] | | | | | VOICE RECOGNITION 2 | | | | + +---------+ + + 12 LEAD ECG (07/18/2019 7:43 AM PDT) + + + + + + | Component | Value | Ref Range | Performed | Pathologist | | | | | At | Signature | + + + + + + | VENTRICULAR | 137 | bpm | [facility] | | | RATE | | | OF | | | | | | CARDIOLOGY | | + + + + + + | ATRIAL RATE | 140 | ms | [facility] | | | | | | OF | | | | | | CARDIOLOGY | | + + + + + + | P-R | 56 | ms | [facility] | | | INTERVAL | | | OF | | | | | | CARDIOLOGY | | + + + + + + | P AXIS | 0 | deg | [facility] | | | | | | OF | | | | | | CARDIOLOGY | | + + + + + + | QRS | 156 | ms | [facility] | | | DURATION | | | OF | | | | | | CARDIOLOGY | | + + + + + + | QT | 340 | ms | [facility] | | | | | | OF | | | | | | CARDIOLOGY | | + + + + + + | QTC-BAZETT | 515 | ms | [facility] | | | | | | OF | | | | | | CARDIOLOGY | | + + + + + + | R AXIS | 72 | deg | [facility] | | | | | | OF | | | | | | CARDIOLOGY | | + + + + + + | T AXIS | 6 | deg | [facility] | | | | | | OF | | | | | | CARDIOLOGY | | + + + + + + | ECG | Probable atrial | | [facility] | | | IMPRESSION | fibrillation | | OF | | | | | | CARDIOLOGY | | + + + + + + | ECG | Right bundle branch | | [facility] | | | IMPRESSION | block | | OF | | | | | | CARDIOLOGY | | + + + + + + | ECG | Abnormal T, consider | | [facility] | | | IMPRESSION | ischemia, lateral leads- | | OF | | | | ABNORMAL ECG - | | CARDIOLOGY | | + + + + + + | ECG | Electronically signed | | [facility] | | | IMPRESSION | by: DOUG CASTILLO | | OF | | | | 07-19-2019 06:05:29 | | CARDIOLOGY | | + + [...] + | [facility] | [address] | [place], [place] | | | CARDIOLOGY | [address] | [address] | | + + + + + BLOOD GASES, VENOUS - LAB (07/18/2019 7:31 AM PDT) + +---------+ + + + | Component | Value | Ref Range | Performed | Pathologist | | | | | At | Signature | + +---------+ + + + | PH VENOUS | 7.37 | 7.35 - 7.45 | [facility] | | | | | | LABORATORY | | | | | | SERVICES, | | | | | | CORE | | + +---------+ + + + | PCO2 VENOUS | 54 (H) | 35 - 50 mmHg | [facility] | | | | | | LABORATORY | | | | | | SERVICES, | | | | | | CORE | | + +---------+ + + + | PO2 VENOUS | 22 (L) | 30 - 55 mmHg | [facility] | | | | | | LABORATORY | | | | | | SERVICES, | | | | | | CORE | | + +---------+ + + + | HCO3 VENOUS | 30 (H) | 22 - 28 mmol/L | [facility] | | | | | | LABORATORY | | | | | | SERVICES, | | | | | | CORE | | + +---------+ + + + | BASE EXCESS | 4.7 (H) | -3.0 - 3.0 | [facility] | | | VENOUS | | mmol/L | LABORATORY | | | | | | SERVICES, | | | | | | CORE | | + +---------+ + + + | O2 SAT, | 36.8 | No range has | [facility] | | | VENOUS | | been | LABORATORY | | | | | established % | SERVICES, | | | | | | CORE | | + +---------+ + + + | TOTAL CO2 | 32 (H) | 23 - 29 mmol/L | [facility] | | | VENOUS | | | LABORATORY | | | [...] | + + + + + | [facility] | [address] | [place] [address] | | | SERVICES, CORE | [address] | | | + + + + + ANTIBODY SCREEN (07/18/2019 7:10 AM PDT) + + + + + + | Component | Value | Ref Range | Performed | Pathologist | | | | | At | Signature | + + + + + + | Antibody | Negative | | [facility] | | | Screen | | | LABORATORY | | | | | | SERVICES, | | | | | | TRANSFUSION | | | | | | MEDICINE | | + + + + + + + + | Specimen | + + | Blood - Blood | | (substance) | + + + + + + + | Performing | Address | City/State/Zipcode | Phone Number | | Organization | | | | + + + + + | [facility] | [address] | [place] [address] | | | SERVICES, | [address] | | | | TRANSFUSION MEDICINE | | | | + + + + + ABO & RH TYPE (07/18/2019 7:10 AM PDT) + + + + + + | Component | Value | Ref Range | Performed | Pathologist | | | | | At | Signature | + + + + + + | ABO Group | A | | [facility] | | | | | | LABORATORY | | | | | | SERVICES, | | | | | | TRANSFUSION | | | | | | MEDICINE | | + + + + + + | Rh Type | Positive | | [facility] | | | | | | LABORATORY | | | | | | SERVICES, | | | | | | TRANSFUSION | | | | | | MEDICINE | | + + + + + + + + | Specimen | + + | Blood - Blood | | (substance) | + + + + + + + | Performing | Address | City/State/Zipcode | Phone Number | | Organization | | | | + + + + + | [facility] | [address] | [place] [address] | | | SERVICES, | [address] | | | | TRANSFUSION MEDICINE | | | | + + + + + CAPILLARY BLOOD GLUCOSE (NO CHG), POC (07/18/2019 7:06 AM PDT) + +---------+ + + + | Component | Value | Ref Range | Performed | Pathologist | | | | | At | Signature | + +---------+ + + + | BLOOD | 160 (H) | 70 - 99 mg/dL | [facility] - | | | GLUCOSE, | | | [facility] | | | POC | | | [facility] | | | | | | OF CARE | | | | | | TESTS | | + +---------+ + + + + + | Specimen | + + | Blood | + + + + + + + | Performing | Address | City/State/Zipcode | Phone Number | | Organization | | | | + + + + + | [facility] | [address] | [place], [place] | | | [facility] | [address] | [address] | | | TESTS | | | | + + + + + 12 LEAD ECG (07/18/2019 6:25 AM PDT) + + + + + + | Component | Value | Ref Range | Performed | Pathologist | | | | | At | Signature | + + + + + + | VENTRICULAR | 185 | bpm | [facility] | | | RATE | | | OF | | | | | | CARDIOLOGY | | + + + + + + | ATRIAL RATE | 196 | ms | [facility] | | | | | | OF | | | | | | CARDIOLOGY | | + + + + + + | P-R | | | [facility] | | | INTERVAL | | | OF | | | | | | CARDIOLOGY | | + + + + + + | P AXIS | | | [facility] | | | | | | OF | | | | | | CARDIOLOGY | | + + + + + + | QRS | 166 | ms | [facility] | | | DURATION | | | OF | | | | | | CARDIOLOGY | | + + + + + + | QT | 299 | ms | [facility] | | | | | | OF | | | | | | CARDIOLOGY | | + + + + + + | QTC-PREETTT | 525 | ms | [facility] | | | | | | OF | | | | | | CARDIOLOGY | | + + + + + + | R AXIS | 72 | deg | [facility] | | | | | | OF | | | | | | CARDIOLOGY | | + + + + + + | T AXIS | -61 | deg | [facility] | | | | | | OF | | | | | | CARDIOLOGY | | + + + + + + | ECG | Atrial fibrillation | | [facility] | | | IMPRESSION | | | OF | | | | | | CARDIOLOGY | | + + + + + + | ECG | Right bundle branch | | [facility] | | | IMPRESSION | block- ABNORMAL ECG - | | OF | | | | | | CARDIOLOGY | | + + + + + + | ECG | Electronically signed | | [facility] | | | IMPRESSION | by: DOUG CASTILLO | | OF | | | | 07-18-2019 10:42:16 | | CARDIOLOGY | | + + [...] DEPT OF | [address] | [place], [place] | | | CARDIOLOGY | [address] | [address] | | + + + + + CAPILLARY BLOOD GLUCOSE (NO CHG), POC (07/18/2019 5:56 AM PDT) + +---------+ + + + | Component | Value | Ref Range | Performed | Pathologist | | | | | At | Signature | + +---------+ + + + | BLOOD | 166 (H) | 70 - 99 mg/dL | [facility] - | | | GLUCOSE, | | | [facility] | | | POC | | | [facility] | | | | | | OF CARE | | | | | | TESTS | | + +---------+ + + + + + | Specimen | + + | Blood | + + + + + + + | Performing | Address | City/State/Zipcode | Phone Number | | Organization | | | | + + + + + | [facility] | [address] | [place], [place] | | | [facility] | [address] | [address] | | | TESTS | | | | + + + + + 12 LEAD ECG (07/18/2019 5:13 AM PDT) + + + + + + | Component | Value | Ref Range | Performed | Pathologist | | | | | At | Signature | + + + + + + | VENTRICULAR | 93 | bpm | [facility] | | | RATE | | | OF | | | | | | CARDIOLOGY | | + + + + + + | ATRIAL RATE | 93 | ms | [facility] | | | | | | OF | | | | | | CARDIOLOGY | | + + + + + + | P-R | 168 | ms | [facility] | | | INTERVAL | | | OF | | | | | | CARDIOLOGY | | + + + + + + | P AXIS | 58 | deg | [facility] | | | | | | OF | | | | | | CARDIOLOGY | | + + + + + + | QRS | 135 | ms | [facility] | | | DURATION | | | OF | | | | | | CARDIOLOGY | | + + + + + + | QT | 376 | ms | [facility] | | | | | | OF | | | | | | CARDIOLOGY | | + + + + + + | QTC-BAZETT | 467 | ms | [facility] | | | | | | OF | | | | | | CARDIOLOGY | | + + + + + + | R AXIS | 59 | deg | [facility] | | | | | | OF | | | | | | CARDIOLOGY | | + + + + + + | T AXIS | 44 | deg | [facility] | | | | | | OF | | | | | | CARDIOLOGY | | + + + + + + | ECG | Sinus rhythm | | [facility] | | | IMPRESSION | | | OF | | | | | | CARDIOLOGY | | + + + + + + | ECG | Right bundle branch | | [facility] | | | IMPRESSION | block | | OF | | | | | | CARDIOLOGY | | + + + + + + | ECG | Left axis deviation- | | [facility] | | | IMPRESSION | ABNORMAL ECG - | | OF | | | | | | CARDIOLOGY | | + + + + + + | ECG | Electronically signed | | [facility] | | | IMPRESSION | by: DOUG CASTILLO | | OF | | | | 07-18-2019 10:41:08 | | CARDIOLOGY | | + + [...] | + + + + + | [facility] | [address] | [place], [place] | | | CARDIOLOGY | [address] | [address] | | + + + + + CAPILLARY BLOOD GLUCOSE (NO CHG), POC (07/18/2019 5:12 AM PDT) + +---------+ + + + | Component | Value | Ref Range | Performed | Pathologist | | | | | At | Signature | + +---------+ + + + | BLOOD | 163 (H) | 70 - 99 mg/dL | [facility] - | | | GLUCOSE, | | | [facility] | | | POC | | | [facility] | | | | | | OF CARE | | | | | | TESTS | | + +---------+ + + + + + | Specimen | + + | Blood | + + + + + + + | Performing | Address | City/State/Zipcode | Phone Number | | Organization | | | | + + + + + | [facility] | [address] | [place], [place] | | | [facility] | [address] | [address] | | | TESTS | | | | + + + + + CBC AND AUTO DIFF (07/18/2019 5:09 AM PDT) + + + + + + | Component | Value | Ref Range | Performed | Pathologist | | | | | At | Signature | + + + + + + | WHITE CELL | 7.11 | 3.50 - 10.80 | [facility] | | | COUNT | | K/cu mm | LABORATORY | | | | | | SERVICES, | | | | | | CORE | | + + + + + + | RED CELL | 2.50 (L) | 4.50 - 6.00 | [facility] | | | COUNT | | M/cu mm | LABORATORY | | | | | | SERVICES, | | | | | | CORE | | + + + + + + | HEMOGLOBIN | 9.2 (L) | 13.5 - 17.5 | [facility] | | | | | g/dL | LABORATORY | | | | | | SERVICES, | | | | | | CORE | | + + + + + + | HEMATOCRIT | 25.7 (L) | 41.0 - 53.0 % | [facility] | | | | | | LABORATORY | | | | | | SERVICES, | | | | | | CORE | | + + + + + + | MCV | 102.8 (H) | 80.0 - 100.0 fL | [facility] | | | | | | LABORATORY | | | | | | SERVICES, | | | | | | CORE | | + + + + + + | MCHC | 35.8 | 32.0 - 36.0 | [facility] | | | | | g/dL | LABORATORY | | | | | | SERVICES, | | | | | | CORE | | + + + + + + | RDW SD | 46.3 | 35.1 - 46.3 fL | [facility] | | | | | | LABORATORY | | | | | | SERVICES, | | | | | | CORE | | + + + + + + | PLATELET | 35 (L) | 150 - 400 K/cu | [facility] | | | COUNT | | mm | LABORATORY | | | | | | SERVICES, | | | | | | CORE | | + + + + + + | MPV | 10.1 | 9.7 - 12.3 fL | [facility] [...] + + + + | NEUTROPHIL | 76.6 (H) | 50.0 - 70.0 % | [facility] | | | % | | | LABORATORY | | | | | | SERVICES, | | | | | | CORE | | + + + + + + | LYMPHOCYTE | 12.9 (L) | 18.0 - 42.0 % | [facility] | | | % | | | LABORATORY | | | | | | SERVICES, | | | | | | CORE | | + + + + + + | MONOCYTE % | 8.6 | 3.5 - 9.0 % | [facility] [...] + + + + | IG% | 0.4Comment: Increased | 0.0 - 1.0 % | [facility] | | | | immature granulocytes | | LABORATORY | | | | (IG) define a left | | SERVICES, | | | | shift. Immature | | CORE | | | | granulocytes (IG) are an | | | | | | automated count of | | | | | | metamyelocytes, | | | | | | myelocytes and | | | | | | promyelocytes. Bands | | | | | | are not included in the | | | | | | IG count. Bands are | | | | | | included in the | | | | | | neutrophil count. | | | | + + + + + + | NEUTROPHIL | 5.44 | 1.80 - 7.70 | [facility] | | | # | | K/cu mm | LABORATORY | | | | | | SERVICES, | | | | | | CORE | | + + + + + + | LYMPHOCYTE | 0.92 (L) | 1.00 - 4.80 | [facility] | | | # | | K/cu mm | LABORATORY | | | | | | SERVICES, | | | | | | CORE | | + + + + + + | MONOCYTE # | 0.61 | 0.10 - 0.90 | [facility] | | | | | K/cu mm | LABORATORY | | | | | | SERVICES, | | | | | | CORE | | + + + + + + | EOS # | 0.08 | 0.00 - 0.50 | [facility] | [...] + | [facility] | [address] | [place] [address] | | | SERVICES, CORE | [address] | | | + + + + + TROPONIN I, PLASMA (07/18/2019 5:09 AM PDT) + +-------+ + + + | Component | Value | Ref Range | Performed | Pathologist | | | | | At | Signature | + +-------+ + + + | TROPONIN I | 0.08 | <0.80 ng/mL | [facility] | | | | | [...] | + + + + + | [facility] | [address] | [place] [address] | | | SERVICES, CORE | [address] | | | + + + + + COAGULOPATHY PANEL (INR,APTT,FIBRINOGEN) (07/18/2019 5:09 AM PDT) + + + + + + | Component | Value | Ref Range | Performed | Pathologist | | | | | At | Signature | + + + + + + | INR | 3.42 (H) | 0.90 - 1.20 INR | [facility] | | | | | | LABORATORY | | | | | | SERVICES, | | | | | | CORE | | + + + + + + | APTT | 54.5 (H) | 26.0 - 36.0 | [facility] | | | | | seconds | LABORATORY | | | | | | SERVICES, | | | | | | CORE | | + + + + + + | FIBRINOGEN | 148 (L) | 150 - 450 mg/dL | [facility] | | | LEVEL | | | LABORATORY | | | [...] with mech. valves (2.5 - 3.5) INR APTT values for | SERVICES, CORE | | monitoring heparin therapy may be affected by specimens processed >1 | | | hour after collection. APTT Therapeutic Range: | | | (75 - 120) sec Heparin levels of 0.35 - 0.7 U/mL | | + + + + + + + + | Performing | Address | City/State/Zipcode | Phone Number | | Organization | | | | + + + + + | [facility] | [address] | [place] [address] | | | SERVICES, CORE | [address] | | | + + + + + COMPLETE METABOLIC SET (NA,K,CL,CO2,BUN,CREAT,GLUC,CA,AST,ALT,BILI TOTAL,ALK PHOS,ALB,PROT TOTAL) (07/18/2019 5:09 AM PDT) + + + + + + | Component | Value | Ref Range | Performed | Pathologist | | | | | At | Signature | + + + + + + | GLUCOSE, | 173 (H) | 70 - 99 mg/dL | [facility] | | | PLASMA | | | LABORATORY | | | (LAB) | | | SERVICES, | | | | | | CORE | | + + + + + + | BUN, PLASMA | 46 (H) | 6 - 20 mg/dL | [facility] | | | (LAB) | | | LABORATORY | | | | | | SERVICES, | | | | | | CORE | | + + + + + + | CREATININE | 1.23 | 0.70 - 1.30 | [facility] | | | PLASMA | | mg/dL | LABORATORY | | | (LAB) | | | SERVICES, | | | | | | CORE | | + + + + + + | EGFR | >60 | >60 mL/min | [facility] | | | - | | | LABORATORY | | | TURKISH | | | SERVICES, | | | | | | CORE | | + + + + + + | EGFR NON | >60 | >60 mL/min | [facility] | | | -JARRED | | | LABORATORY | | | RICAN | | | SERVICES, | | | | | | CORE | | + + + + + + | SODIUM, | 136 | 136 - 145 | [facility] | | | PLASMA | | mmol/L | LABORATORY | | | (LAB) | | | SERVICES, | | | | | | CORE | | + + + + + + | POTASSIUM, | 4.1 | 3.4 - 5.0 | [facility] | | | PLASMA | | mmol/L | LABORATORY | | | (LAB) | | | SERVICES, | | | | | | CORE | | + + + + + + | CHLORIDE, | 99 | 97 - 108 mmol/L | [facility] [...] + + + + | CALCIUM(ALB | 10.3 (H) | 8.6 - 10.2 | [facility] | | | CORRECTED) | | mg/dL | LABORATORY | | | | | | SERVICES, | | | | | | CORE | | + + + + + + | BILIRUBIN | 13.6 (H) | 0.3 - 1.2 mg/dL | [...] + + + + | ALBUMIN, | 2.7 (L) | 3.5 - 4.7 g/dL | [facility] | | | PLASMA | | | LABORATORY | | | (LAB) | | | SERVICES, | | | | | | CORE | | + + + + + + | ALK PHOS | 112 | 53 - 128 U/L | [facility] | | | | | | LABORATORY | | | | | | SERVICES, | | | | | | CORE | | + + + + + + | AST(SGOT) | 66 (H) | <=41 U/L | [facility] | | | | | | LABORATORY | | | | | | SERVICES, | | | | | | CORE | | + + + + + + | ALT (SGPT) | 45 | <=60 U/L | [facility] | | | | | | LABORATORY | | | | | | SERVICES, | | | | | | CORE | | + + + + + + | ANION GAP | 8 | 4 - 11 mmol/L | [facility] | | | | | | LABORATORY | | | | | | SERVICES, | | | | | | CORE | | + + + + + + | ANION | 11 | 4 - 11 mmol/L | [facility] [...] MDRD equation recommended by the National | [facility] | | Kidney Disease Education Program. Estimated GFR Interpretive | LABORATORY | | Information: <60 mL/min/1.73 sq m Chronic Kidney | SERVICES, CORE | | Disease <15 mL/min/1.73 sq m Kidney Failure | | | Estimated GFR greater than 60 mL/min/1.73 sq m is of limited clinical | | | value. The MDRD equation is not valid in the following situations: - | | | Patients under 18 years of [...] | + + + + + | [facility] | [address] | [place] [address] | | | SERVICES, CORE | [address] | | | + + + + + 12 LEAD ECG (07/18/2019 5:05 AM PDT) + + + + + + | Component | Value | Ref Range | Performed | Pathologist | | | | | At | Signature | + + + + + + | VENTRICULAR | 158 | bpm | [facility] | | | RATE | | | OF | | | | | | CARDIOLOGY | | + + + + + + | ATRIAL RATE | 158 | ms | [facility] | | | | | | OF | | | | | | CARDIOLOGY | | + + + + + + | P-R | | | [facility] | | | INTERVAL | | | OF | | | | | | CARDIOLOGY | | + + + + + + | P AXIS | 0 | deg | [facility] | | | | | | OF | | | | | | CARDIOLOGY | | + + + + + + | QRS | 175 | ms | [facility] | | | DURATION | | | OF | | | | | | CARDIOLOGY | | + + + + + + | QT | 357 | ms | [facility] | | | | | | OF | | | | | | CARDIOLOGY | | + + + + + + | QTC-BAMARICRUZTT | 579 | ms | [facility] | | | | | | OF | | | | | | CARDIOLOGY | | + + + + + + | R AXIS | 88 | deg | [facility] | | | | | | OF | | | | | | CARDIOLOGY | | + + + + + + | T AXIS | 10 | deg | [facility] | | | | | | OF | | | | | | CARDIOLOGY | | + + + + + + | ECG | Supraventricular | | [facility] | | | IMPRESSION | tachycardia | | OF | | | | | | CARDIOLOGY | | + + + + + + | 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 | | [facility] | | | IMPRESSION | | | OF | | | | | | CARDIOLOGY | | + + + + + + | ECG | ST depr, consider | | [facility] | | | IMPRESSION | ischemia, anterolateral | | OF | | | | lds- ABNORMAL ECG - | | CARDIOLOGY | | + + + + + + | ECG | Electronically signed | | [facility] | | | IMPRESSION | by: DOUG CASTILLO | | OF | | | | 07-18-2019 10:40:42 | | CARDIOLOGY | | + + [...] DEPT OF | [address] | [place], [place] | | | CARDIOLOGY | [address] | [address] | | + + + + + CAPILLARY BLOOD GLUCOSE (NO CHG), POC (07/18/2019 4:08 AM PDT) + +---------+ + + + | Component | Value | Ref Range | Performed | Pathologist | | | | | At | Signature | + +---------+ + + + | BLOOD | 167 (H) | 70 - 99 mg/dL | [facility] | | | GLUCOSE, | | | [facility] | | | POC | | | [place] | | | | | | OF CARE | | | | | | TESTS | | + +---------+ + + + + + | Specimen | + + | Blood | + + + + + + + | Performing | Address | City/State/Zipcode | Phone Number | | Organization | | | | + + + + + | [facility] | [address] | [place], [place] | | | [facility] | [facility] | [address] | | | TESTS | | | | + + + + + CAPILLARY BLOOD GLUCOSE (NO CHG), POC (07/18/2019 3:00 AM PDT) + +---------+ + + + | Component | Value | Ref Range | Performed | Pathologist | | | | | At | Signature | + +---------+ + + + | BLOOD | 192 (H) | 70 - 99 mg/dL | [facility] - | | | GLUCOSE, | | | [facility] | | | POC | | | [facility] | | | | | | OF CARE | | | | | | TESTS | | + +---------+ + + + + + | Specimen | + + | Blood | + + + + + + + | Performing | Address | City/State/Zipcode | Phone Number | | Organization | | | | + + + + + | [facility] | [address] | [place], [place] | | | [facility] | [address] | [address] | | | TESTS | | | | + + + + + CAPILLARY BLOOD GLUCOSE (NO CHG), POC (07/18/2019 1:59 AM PDT) + +---------+ + + + | Component | Value | Ref Range | Performed | Pathologist | | | | | At | Signature | + +---------+ + + + | BLOOD | 197 (H) | 70 - 99 mg/dL | [facility] - | | | GLUCOSE, | | | [facility] | | | POC | | | [facility] | | | | | | OF CARE | | | | | | TESTS | | + +---------+ + + + + + | Specimen | + + | Blood | + + + + + + + | Performing | Address | City/State/Zipcode | Phone Number | | Organization | | | | + + + + + | [facility] | [address] | [place], [place] | | | [facility] [place] | [facility] | [address] | | | TESTS | | | | + + + + + CAPILLARY BLOOD GLUCOSE (NO CHG), POC (07/18/2019 1:03 AM PDT) + +---------+ + + + | Component | Value | Ref Range | Performed | Pathologist | | | | | At | Signature | + +---------+ + + + | BLOOD | 204 (H) | 70 - 99 mg/dL | [facility] - | | | GLUCOSE, | | | [facility] | | | POC | | | [place] | | | | | | OF CARE | | | | | | TESTS | | + +---------+ + + + + + | Specimen | + + | Blood | + + + + + + + | Performing | Address | City/State/Zipcode | Phone Number | | Organization | | | | + + + + + | [facility] | [address] | [place], [place] | | | [facility] [place] | [facility] | [address] | | | TESTS | | | | + + + + + CAPILLARY BLOOD GLUCOSE (NO CHG), POC (07/18/2019 12:12 AM PDT) + +---------+ + + + | Component | Value | Ref Range | Performed | Pathologist | | | | | At | Signature | + +---------+ + + + | BLOOD | 272 (H) | 70 - 99 mg/dL | [facility] - | | | GLUCOSE, | | | [place] | | | POC | | | [facility] | | | | | | OF CARE | | | | | | TESTS | | + +---------+ + + + + + | Specimen | + + | Blood | + + + + + + + | Performing | Address | City/State/Zipcode | Phone Number | | Organization | | | | + + + + + | [facility] | [address] | [place], [place] | | | [facility] | [address] | [address] | | | TESTS | | | | + + + + + CARDIOLOGY (07/18/2019 12:00 AM PDT) + + + | Narrative | Performed At | + + + | | | + + + CARDIOLOGY (07/18/2019 12:00 AM PDT) + + + | Narrative | Performed At | + + + | | | + + + CARDIOLOGY (07/18/2019 12:00 AM PDT) + + + | Narrative | Performed At | + + + | | | + + + CARDIOLOGY (07/18/2019 12:00 AM PDT) + + + | Narrative | Performed At | + + + | | | + + + CARDIOLOGY (07/18/2019 12:00 AM PDT) + + + | Narrative | Performed At | + + + | | | + + + CAPILLARY BLOOD GLUCOSE (NO CHG), POC (07/17/2019 11:42 PM PDT) + +---------+ + + + | Component | Value | Ref Range | Performed | Pathologist | | | | | At | Signature | + +---------+ + + + | BLOOD | 263 (H) | 70 - 99 mg/dL | [facility] - | | | GLUCOSE, | | | [facility] | | | POC | | | [facility] | | | | | | OF CARE | | | | | | TESTS | | + +---------+ + + + + + | Specimen | + + | Blood | + + + + + + + | Performing | Address | City/State/Zipcode | Phone Number | | Organization | | | | + + + + + | [facility] | [address] | [place], [place] | | | [facility] | [address] | [address] | | | TESTS | | | | + + + + + C-REACTIVE PROTEIN (07/17/2019 11:17 PM PDT) + +-------+ + + + | Component | Value | Ref Range | Performed | Pathologist | | | | | At | Signature | + +-------+ + + + | C-REACTIVE | 4.7 | <10.0 mg/L | [facility] | | | PROTEIN | | | LABORATORY | | | [...] | + + + + + | [facility] | [address] | [place] [address] | | | SERVICES, CORE | [address] | | | + + + + + BLOOD GASES, VENOUS - LAB (07/17/2019 11:17 PM PDT) + +---------+ + + + | Component | Value | Ref Range | Performed | Pathologist | | | | | At | Signature | + +---------+ + + + | PH VENOUS | 7.37 | 7.35 - 7.45 | [facility] | | | | | | LABORATORY | | | | | | SERVICES, | | | | | | CORE | | + +---------+ + + + | PCO2 VENOUS | 56 (H) | 35 - 50 mmHg | [facility] | | | | | | LABORATORY | | | | | | SERVICES, | | | | | | CORE | | + +---------+ + + + | PO2 VENOUS | 25 (L) | 30 - 55 mmHg | [facility] | | | | | | LABORATORY | | | | | | SERVICES, | | | | | | CORE | | + +---------+ + + + | HCO3 VENOUS | 32 (H) | 22 - 28 mmol/L | [facility] | | | | | | LABORATORY | | | | | | SERVICES, | | | | | | CORE | | + +---------+ + + + | BASE EXCESS | 6.1 (H) | -3.0 - 3.0 | [facility] | | | VENOUS | | mmol/L | LABORATORY | | | | | | SERVICES, | | | | | | CORE | | + +---------+ + + + | O2 SAT, | 43.2 | No range has | [facility] | | | VENOUS | | been | LABORATORY | | | | | established % | SERVICES, | | | | | | CORE | | + +---------+ + + + | TOTAL CO2 | 34 (H) | 23 - 29 mmol/L | [facility] | | | VENOUS | | | LABORATORY | | | [...] + | [facility] | [address] | [place] [address] | | | SERVICES, CORE | [address] | | | + + + + + LACTATE (07/17/2019 11:17 PM PDT) + +-------+ + + + | Component | Value | Ref Range | Performed | Pathologist | | | | | At | Signature | + +-------+ + + + | LACTATE | 1.8 | mmol/L | [facility] | | | | | | LABORATORY | | | | | | SERVICES, | | | | | | CORE | | + +-------+ + + + + + | Specimen | + + | Blood - Blood | | (substance) | + + + + + | Narrative | Performed At | + + + | Reference Range: Venous blood: 0.5 - 2.2 mmol/L Critical >= 4.0 | [facility] | | mmol/L Arterial blood: 0.5 - 1.6 mmol/L Critical >= 4.0 mmol/L | LABORATORY | | | SERVICES, CORE | + + + + + + + + | Performing | Address | City/State/Zipcode | Phone Number | | Organization | | | | + + + + + | [facility] | [address] | [place] [address] | | | SERVICES, CORE | [address] | | | + + + + + CAPILLARY BLOOD GLUCOSE (NO CHG), POC (07/17/2019 10:35 PM PDT) + +---------+ + + + | Component | Value | Ref Range | Performed | Pathologist | | | | | At | Signature | + +---------+ + + + | BLOOD | 246 (H) | 70 - 99 mg/dL | [facility] - | | | GLUCOSE, | | | [facility] | | | POC | | | [facility] | | | | | | OF CARE | | | | | | TESTS | | + +---------+ + + + + + | Specimen | + + | Blood | + + + + + + + | Performing | Address | City/State/Zipcode | Phone Number | | Organization | | | | + + + + + | [facility] | [address] | [place], [place] | | | [facility] | [address] | [address] | | | TESTS | | | | + + + + + US LIVER W/ DOPPLER (07/17/2019 10:20 PM PDT) + + | Specimen | + + | | + + + + + | Narrative | Performed At | + + + | EXAM: US LIVER DOPPLER. HISTORY: ascites, cirrhosis, evaluate | [facility] | | for vascular thromboses COMPARISON: CT 05/19/2019, MRI 04/22/2019 | RADIOLOGY VOICE | | TECHNIQUE: Ultrasound evaluation of the liver. Doppler with | RECOGNITION 2 | | spectral analysis and color flow was performed of the hepatic | | | vasculature. FINDINGS: Liver: Parenchymal echotexture is | | | coarsened and heterogeneous. No focal lesion. Biliary: The | | | gallbladder contains gallstones. There is no mural thickening or | | | pericholecystic fluid. Sonographic Canada sign is negative. No biliary | | | dilatation. The common duct measures 6 mm in diameter. | | | Pancreas: The pancreatic duct is mildly prominent, measuring up to 4 | | | mm. Visualized portions of the pancreas are otherwise unremarkable. | | | Spleen: The spleen is enlarged, measuring up to 18.6 cm in length. | | | Hepatic Vasculature: Main Portal Vein: Patent Diameter: 8 mm. | | | Flow direction: Antegrade. PSV: 26.8 cm/sec. Left Portal Vein: | | | Patent Flow direction: Antegrade. PSV: 20.4 cm/sec. Right Portal | | | Vein: Patent Flow direction: Antegrade. PSV: 15.9 cm/sec. | | | Splenic Vein: Antegrade. Hepatic Veins: Right Hepatic Vein: | | | Patent with antegrade flow. Middle Hepatic Vein: Patent with | | | antegrade flow. Left Hepatic Vein: Patent with antegrade flow. | | | IVC: Patent. Hepatic Artery: Normal arterial waveforms are | | | observed in the common, right and left hepatic arteries. Common | | | hepatic artery: PSV: 108 cm/sec. SAT: 44 ms. RI: 0.75 Right | | | hepatic artery: PSV: 81.9 cm/sec. SAT: 50 ms. RI: 0.74 Left | | | hepatic artery: PSV: 108 cm/sec. SAT: 40 ms. RI: 0.74 | | | IMPRESSION: Cirrhotic liver morphology with findings of portal | | | hypertension. Unremarkable Doppler ultrasound without evidence of | | | venous thrombosis. Cholelithiasis without evidence of | | | cholecystitis. I have personally reviewed the images and, if | | | necessary, edited the report. I agree with the report as now | | | presented. Final signature: Traci Monson MD 07/18/2019 10:28 | | | AM Preliminary: Pete Ambrocio MD Dictation initiated: Pete Ambrocio MD 07/17/2019 10:24 PM | | + + + + + | Procedure Note | + + | Service Account, [employer] In Interface - 07/18/2019 10:29 AM PDT EXAM: US LIVER | | DOPPLER. HISTORY: ascites, cirrhosis, evaluate for vascular thromboses COMPARISON: CT | | 05/19/2019, MRI 04/22/2019 TECHNIQUE: Ultrasound evaluation of the liver. Doppler with | | spectral analysis and color flow was performed of the hepatic vasculature. FINDINGS: | | Liver: Parenchymal echotexture is coarsened and heterogeneous. No focal lesion. | | Biliary: The gallbladder contains gallstones. There is no mural thickening or | | pericholecystic fluid. Sonographic Canada sign is negative. No biliary dilatation. The | | common duct measures 6 mm in diameter. Pancreas: The pancreatic duct is mildly | | prominent, measuring up to 4 mm. Visualized portions of the pancreas are otherwise | | unremarkable. Spleen: The spleen is enlarged, measuring up to 18.6 cm in length. Hepatic | | Vasculature:Main Portal Vein: PatentDiameter: 8 mm.Flow direction: Antegrade.PSV: 26.8 | | cm/sec. Left Portal Vein: PatentFlow direction: Antegrade.PSV: 20.4 cm/sec. Right Portal | | Vein: PatentFlow direction: Antegrade.PSV: 15.9 cm/sec. Splenic Vein: Antegrade. | | Hepatic Veins:Right Hepatic Vein: Patent with antegrade flow.Middle Hepatic Vein: Patent | | with antegrade flow.Left Hepatic Vein: Patent with antegrade flow. IVC: Patent. Hepatic | | Artery: Normal arterial waveforms are observed in the common, right and left hepatic | | arteries.Common hepatic artery: PSV: 108 cm/sec. SAT: 44 ms. RI: 0.75 Right hepatic | | artery: PSV: 81.9 cm/sec. SAT: 50 ms. RI: 0.74 Left hepatic artery: PSV: 108 cm/sec. | | SAT: 40 ms. RI: 0.74 IMPRESSION: Cirrhotic liver morphology with findings of portal | | hypertension. Unremarkable Doppler ultrasound without evidence of venous thrombosis. | | Cholelithiasis without evidence of cholecystitis. I have personally reviewed the | | images and, if necessary, edited the report. I agree with the report as now presented. | | Final signature: Traci Monson MD 07/18/2019 10:28 AM Preliminary: Pete Ambrocio MD | | Dictation initiated: Pete Ambrocio MD 07/17/2019 10:24 PM | |Left Portal Vein: Patent | |Flow direction: Antegrade. | |PSV: 20.4 cm/sec. | | | |Right Portal Vein: Patent | |Flow direction: Antegrade. | |PSV: 15.9 cm/sec. | | | |Splenic Vein: Antegrade. | | | |Hepatic Veins: | |Right Hepatic Vein: Patent with antegrade flow. | |Middle Hepatic Vein: Patent with antegrade flow. | |Left Hepatic Vein: Patent with antegrade flow. | | | |IVC: Patent. | | | |Hepatic Artery: Normal arterial waveforms are observed in the common, right and left hepati c arteries. | |Common hepatic artery: PSV: 108 cm/sec. SAT: 44 ms. RI: 0.75 | |Right hepatic artery: PSV: 81.9 cm/sec. SAT: 50 ms. RI: 0.74 | |Left hepatic artery: PSV: 108 cm/sec. SAT: 40 ms. RI: 0.74 | | | |IMPRESSION: | | | |Cirrhotic liver morphology with findings of portal hypertension. | | | |Unremarkable Doppler ultrasound without evidence of venous thrombosis. | | | |Cholelithiasis without evidence of cholecystitis. | | | | | |I have personally reviewed the images and, if necessary, edited the report. I agree with th e report as now presented. | | | |Final signature: Traci Monson MD 07/18/2019 10:28 AM | |Preliminary: Pete Ambrocio MD | |Dictation initiated: Pete Ambrocio MD 07/17/2019 10:24 PM | + + + +---------+ + + | Performing | Address | City/State/Zipcode | Phone Number | | Organization | | | | + +---------+ + + | [facility] | | | | | VOICE RECOGNITION 2 | | | | + +---------+ + + 12 LEAD ECG (07/17/2019 9:15 PM PDT) + + + + + + | Component | Value | Ref Range | Performed | Pathologist | | | | | At | Signature | + + + + + + | VENTRICULAR | 76 | bpm | [facility] | | | RATE | | | OF | | | | | | CARDIOLOGY | | + + + + + + | ATRIAL RATE | 76 | ms | [facility] | | | | | | OF | | | | | | CARDIOLOGY | | + + + + + + | P-R | 168 | ms | [facility] | | | INTERVAL | | | OF | | | | | | CARDIOLOGY | | + + + + + + | P AXIS | 29 | deg | [facility] | | | | | | OF | | | | | | CARDIOLOGY | | + + + + + + | QRS | 135 | ms | [facility] | | | DURATION | | | OF | | | | | | CARDIOLOGY | | + + + + + + | QT | 410 | ms | [facility] | | | | | | OF | | | | | | CARDIOLOGY | | + + + + + + | QTC-BAZETT | 461 | ms | [facility] | | | | | | OF | | | | | | CARDIOLOGY | | + + + + + + | R AXIS | 62 | deg | [facility] | | | | | | OF | | | | | | CARDIOLOGY | | + + + + + + | T AXIS | 55 | deg | [facility] | | | | | | OF | | | | | | CARDIOLOGY | | + + + + + + | ECG | Sinus rhythm | | [facility] | | | IMPRESSION | | | OF | | | | | | CARDIOLOGY | | + + + + + + | ECG | Atrial premature complex | | [facility] | | | IMPRESSION | | | OF | | | | | | CARDIOLOGY | | + + + + + + | ECG | Right bundle branch | | [facility] | | | IMPRESSION | block | | OF | | | | | | CARDIOLOGY | | + + + + + + | ECG | Nonspecific T | | [facility] | | | IMPRESSION | abnormalities, lateral | | OF | | | | leads- ABNORMAL ECG - | | CARDIOLOGY | | + + + + + + | ECG | Electronically signed | | [facility] | | | IMPRESSION | by: BEATRICE MCINTYRE | | OF | | | | 07-17-2019 21:23:22 | | CARDIOLOGY | | + + [...] + + + + + | [facility] | [address] | [place], [place] | | | CARDIOLOGY | [facility] | [address] | | + + + + + CULTURE, URINE [facility] (07/17/2019 8:18 PM PDT) + + + + + + | Component | Value | Ref Range | Performed | Pathologist | | | | | At | Signature | + + + + + + | URINE | No growth (<1000 cfu/mL) | | [facility] | | | CULTURE | after 24 hours | | LABORATORY | | | [facility] | | | SERVICES, | | | | | | CORE | | + + + + + + + + | Specimen | + + | Urine - Urine | | specimen collection, | | clean catch | | (procedure) | + + + + + + + | Performing | Address | City/State/Zipcode | Phone Number | | Organization | | | | + + + + + | [facility] | [address] | [place] [address] | | | SERVICES, CORE | [address] | | | + + + + + UREA NITROGEN, URINE (07/17/2019 8:18 PM PDT) + +--------+ + + + | Component | Value | Ref Range | Performed | Pathologist | | | | | At | Signature | + +--------+ + + + | UREA NITRO | 615 | mg/dL | [facility] | | | CONC UR | | | LABORATORY | | | | | | SERVICES, | | | | | | CORE | | + +--------+ + + + | URINE | Random | | [facility] | | | INTERVAL | | | LABORATORY | | | | | | SERVICES, | | | | | | CORE | | + +--------+ + + + | URINE | Spot | | [facility] | | | VOLUME | | | LABORATORY | | | | | | SERVICES, | | | | | | CORE | | + +--------+ + + + + + | Specimen | + + | Urine - Urine | | (substance) | + + + + + | Narrative | Performed At | + + + | Reference range based on 24 hour collection time. Patient results | [facility] | | are calculated from actual collection time. | LABORATORY | | | [facility] | + + + + + + + + | Performing | Address | City/State/Zipcode | Phone Number | | Organization | | | | + + + + + | [facility] | [address] | [place] [address] | | | [place] | [address] | | | + + + + + OSMOLALITY, URINE SPOT (07/17/2019 8:18 PM PDT) + +-------+ + + + | Component | Value | Ref Range | Performed | Pathologist | | | | | At | Signature | + +-------+ + + + | OSMOLALITY | 372 | mOsm/kg | [facility] | | | URINE | | | LABORATORY | | | | | | SERVICES, | | | | | | CORE | | + +-------+ + + + + + | Specimen | + + | Urine - Urine | | (substance) | + + + + + | Narrative | Performed At | + + + | Reference Ranges: Random Urine: | [facility] | | 50-1200 mOsm/kg 24 Hr., average fluid intake: 300-900 mOsm/kg | LABORATORY | | After 12 Hr. fluid restriction: >850 mOsm/kg | SERVICES, CORE | + + + + + + + + | Performing | Address | City/State/Zipcode | Phone Number | | Organization | | | | + + + + + | [facility] | [address] | [place] [address] | | | SERVICES, CORE | [address] | | | + + + + + CREATININE, URINE (07/17/2019 8:18 PM PDT) + +--------+ + + + | Component | Value | Ref Range | Performed | Pathologist | | | | | At | Signature | + +--------+ + + + | CREATININE | 68.20 | mg/dL | [facility] | | | CONC UR | | | LABORATORY | | | | | | SERVICES, | | | | | | CORE | | + +--------+ + + + | URINE | Random | | [facility] | | | INTERVAL | | | LABORATORY | | | | | | SERVICES, | | | | | | CORE | | + +--------+ + + + | URINE | Spot | | [facility] | | | VOLUME | | | LABORATORY | | | | | | SERVICES, | | | | | | CORE | | + +--------+ + + + + + | Specimen | + + | Urine - Urine | | (substance) | + + + + + | Narrative | Performed At | + + + | Reference range based on 24 hour collection time. Patient results | [facility] | | are calculated from actual collection time. | LABORATORY | | | SERVICES, CORE | + + + + + + + + | Performing | Address | City/State/Zipcode | Phone Number | | Organization | | | | + + + + + | [facility] | [address] | [place] [address] | | | SERVICES, CORE | [address] | | | + + + + + SODIUM TOTAL, URINE (07/17/2019 8:18 PM PDT) + +--------+ + + + | Component | Value | Ref Range | Performed | Pathologist | | | | | At | Signature | + +--------+ + + + | SODIUM CONC | 17 | mmol/L | [facility] | | | URINE | | | LABORATORY | | | | | | SERVICES, | | | | | | CORE | | + +--------+ + + + | URINE | Random | | [facility] | | | INTERVAL | | | LABORATORY | | | | | | SERVICES, | | | | | | CORE | | + +--------+ + + + | URINE | Spot | | [facility] | | | VOLUME | | | LABORATORY | | | | | | SERVICES, | | | | | | CORE | | + +--------+ + + + + + | Specimen | + + | Urine - Urine | | (substance) | + + + + + | Narrative | Performed At | + + + | Reference range based on 24 hour collection time. Patient results | [facility] | | are calculated from actual collection time. | LABORATORY | | | SERVICES, CORE | + + + + + + + + | Performing | Address | City/State/Zipcode | Phone Number | | Organization | | | | + + + + + | [facility] | [address] | [place] [address] | | | SERVICES, CORE | [address] | | | + + + + + URINE SCREEN FOR CULTURE (07/17/2019 8:18 PM PDT) + + + + + + | Component | Value | Ref Range | Performed | Pathologist | | | | | At | Signature | + + + + + + | URINE | Sent for Culture (A) | Negative | [facility] | | | SCREEN FOR | | | LABORATORY | | | CULTURE | | | SERVICES, | | | | | | CORE | | + + + + + + + + | Specimen | + + | Urine - Urine | | specimen collection, | | clean catch | | (procedure) | + + + + + + + | Performing | Address | City/State/Zipcode | Phone Number | | Organization | | | | + + + + + | [facility] [employer] | [address] | [place] [address] | | | SERVICES, CORE | [address] | | | + + + + + URINE, MICROSCOPIC EXAM (07/17/2019 8:18 PM PDT) + +---------+ + + + | Component | Value | Ref Range | Performed | Pathologist | | | | | At | Signature | + +---------+ + + + | RED CELLS | 4 (H) | 0 - 3 /hpf | [facility] | | | | | | LABORATORY | | | | | | SERVICES, | | | | | | CORE | | + +---------+ + + + | WHITE CELLS | 1 | 0 - 5 /hpf | [facility] | | | | | | LABORATORY | | | | | | SERVICES, | | | | | | CORE | | + +---------+ + + + | WBC CLUMPS | None | | [facility] | | | | | | LABORATORY | | | | | | SERVICES, | | | | | | CORE | | + +---------+ + + + | BACTERIA | Few (A) | None /hpf | [facility] | | | | | | LABORATORY | | | | | | SERVICES, | | | | | | CORE | | + +---------+ + + + | YEAST (LAB) | None | None /hpf | [facility] | | | | | | LABORATORY | | | | | | SERVICES, | | | | | | CORE | | + +---------+ + + + | SQUAMOUS | None | None, Few /hpf | [facility] | | | EPITHELIAL | | | LABORATORY | | | | | | SERVICES, | | | | | | CORE | | + +---------+ + + + | MUCOUS | None | None, Few /hpf | [facility] | | | | | | LABORATORY | | | | | | SERVICES, | | | | | | CORE | | + +---------+ + + + | TRICHOMONAS | None | None /hpf | [facility] | | | | | | LABORATORY | | | | | | SERVICES, | | | | | | CORE | | + +---------+ + + + | NON-SQUAMOU | None | None /hpf | [facility] | | | S EPITH | | | LABORATORY | | | | | | SERVICES, | | | | | | CORE | | + +---------+ + + + | HYALINE | 0 | 0 - 2 /lpf | [facility] | | | CASTS | | | LABORATORY | | | | | | SERVICES, | | | | | | CORE | | + +---------+ + + + | GRANULAR | 0 | 0 - 2 /lpf | [facility] | | | CASTS | | | LABORATORY | | | | | | SERVICES, | | | | | | CORE | | + +---------+ + + + | CELLULAR | 0 | <=0 /lpf | [facility] | | | CASTS | | | LABORATORY | | | | | | SERVICES, | | | | | | CORE | | + +---------+ + + + | RBC CASTS | 0 | <=0 /lpf | [facility] | | | | | | LABORATORY | | | | | | SERVICES, | | | | | | CORE | | + +---------+ + + + | WBC CASTS | 0 | <=0 /lpf | [facility] | | | | | | LABORATORY | | | | | | SERVICES, | | | | | | CORE | | + +---------+ + + + | TRIPLE P04 | None | None, Few /hpf | [facility] | | | CRYSTALS | | | LABORATORY | | | | | | SERVICES, | | | | | | CORE | | + +---------+ + + + | CALCIUM | None | None, Few /hpf | [facility] | | | OXALATE | | | LABORATORY | | | RMAÓN | | | SERVICES, | | | | | | CORE | | + +---------+ + + + | URIC ACID | None | None, Few /hpf | [facility] | | | CRYSTALS | | | LABORATORY | | | | | | SERVICES, | | | | | | CORE | | + +---------+ + + + | AMORPHOUS | None | None, Few /hpf | [facility] | | | CRYSTALS | | | LABORATORY | | | | | | SERVICES, | | | | | | CORE | | + +---------+ + + + + + | Specimen | + + | Urine - Urine | | specimen collection, | | clean catch | | (procedure) | + + + + + + + | Performing | Address | City/State/Zipcode | Phone Number | | Organization | | | | + + + + + | [facility] | [address] | [place] [address] | | | SERVICES, CORE | [address] | | | + + + + + ALVINA MARSLAURENT ONLY (07/17/2019 8:18 PM PDT) + + + + + + | Component | Value | Ref Range | Performed | Pathologist | | | | | At | Signature | + + + + + + | COLOR(UR) | Morgan | | [facility] | | | | | | LABORATORY | | | | | | SERVICES, | | | | | | CORE | | + + + + + + | APPEARANCE | Clear | | [facility] | | | | | | LABORATORY | | | | | | SERVICES, | | | | | | CORE | | + + + + + + | GLUCOSE(UR) | >=500.0 (A) | Negative, 50.0 | [facility] | | | | | mg/dL | LABORATORY | | | | | | SERVICES, | | | | | | CORE | | + + + + + + | PROTEIN(LAB | Negative | Negative, 30.0 | [facility] | | | ) | | mg/dL | LABORATORY | | | | | | SERVICES, | | | | | | CORE | | + + + + + + | BILIRUBIN | Negative | Negative | [facility] | | | | | | LABORATORY | | | | | | SERVICES, | | | | | | CORE | | + + + + + + | UROBILINOGE | 2.0 (A) | <2.0 mg/dL | [facility] | | | N | | | LABORATORY | | | | | | SERVICES, | | | | | | CORE | | + + + + + + | PH(UR) | 5.0 | 5.0 - 8.0 | [facility] | | | | | | LABORATORY | | | | | | SERVICES, | | | | | | CORE | | + + + + + + | BLOOD | Large (A) | Negative | [facility] | | | | | | LABORATORY | | | | | | SERVICES, | | | | | | CORE | | + + + + + + | KETONES | Negative | Negative mg/dL | [facility] | | | | | | LABORATORY | | | | | | SERVICES, | | | | | | CORE | | + + + + + + | NITRITES | Negative | Negative | [facility] | | | | | | LABORATORY | | | | | | SERVICES, | | | | | | CORE | | + + + + + + | LEUKOCYTE | Negative | Negative | [facility] | | | ESTERASE | | | LABORATORY | | | | | | SERVICES, | | | | | | CORE | | + + + + + + | SPECIFIC | 1.005Comment: Specific | 1.005 - 1.030 | [facility] | | | GRAVITY | Spooner performed by | | LABORATORY | | | | refractometry | | SERVICES, | | | | | | CORE | | + + + + + + + + | Specimen | + + | Urine - Urine | | specimen collection, | | clean catch | | (procedure) | + + + + + + + | Performing | Address | City/State/Zipcode | Phone Number | | Organization | | | | + + + + + | [facility] | [address] | [place] [address] | | | SERVICES, CORE | [address] | | | + + + + + HAPTOGLOBIN (07/17/2019 8:06 PM PDT) + +--------+ + + + | Component | Value | Ref Range | Performed | Pathologist | | | | | At | Signature | + +--------+ + + + | HAPTOGLOBIN | <8 (L) | 30 - 200 mg/dL | [facility] | | | | | | LABORATORY | | | | | | SERVICES, | | | | | | CORE | | + +--------+ + + + + + | Specimen | + + | Blood - Blood | | (substance) | + + + + + + + | Performing | Address | City/State/Zipcode | Phone Number | | Organization | | | | + + + + + | [facility] | [address] | [place] [address] | | | SERVICES, CORE | [address] | | | + + + + + LDH TOTAL, PLASMA (07/17/2019 8:06 PM PDT) + +---------+ + + + | Component | Value | Ref Range | Performed | Pathologist | | | | | At | Signature | + +---------+ + + + | LD TOTAL, | 264 (H) | <=250 U/L | [facility] | | | PLASMA | | | LABORATORY | | | | | | SERVICES, | | | | | | CORE | | + +---------+ + + + | LD CMNT | No Hemo | | [facility] [...] + | [facility] | [address] | [place] [address] | | | SERVICES, CORE | [address] | | | + + + + + COMPLETE METABOLIC SET (NA,K,CL,CO2,BUN,CREAT,GLUC,CA,AST,ALT,BILI TOTAL,ALK PHOS,ALB,PROT TOTAL) (07/17/2019 8:06 PM PDT) + + + + + + | Component | Value | Ref Range | Performed | Pathologist | | | | | At | Signature | + + + + + + | GLUCOSE, | 257 (H) | 70 - 99 mg/dL | [facility] | | | PLASMA | | | LABORATORY | | | (LAB) | | | SERVICES, | | | | | | CORE | | + + + + + + | BUN, PLASMA | 48 (H) | 6 - 20 mg/dL | [facility] | | | (LAB) | | | LABORATORY | | | | | | SERVICES, | | | | | | CORE | | + + + + + + | CREATININE | 1.20 | 0.70 - 1.30 | [facility] | | | PLASMA | | mg/dL | LABORATORY | | | (LAB) | | | SERVICES, | | | | | | CORE | | + + + + + + | EGFR | >60 | >60 mL/min | [facility] | | | - | | | LABORATORY | | | TURKISH | | | SERVICES, | | | | | | CORE | | + + + + + + | EGFR NON | >60 | >60 mL/min | [facility] | | | -JARRED | | | LABORATORY | | | [...] + | TOTAL CO2, | 31 | 21 - 32 mmol/L | [facility] | | | PLASMA | | | LABORATORY | | | (LAB) | | | SERVICES, | | | | | | CORE | | + + + + + + | CALCIUM, | 9.4 | 8.6 - 10.2 | [facility] | | | PLASMA | | mg/dL | LABORATORY | | | (LAB) | | | SERVICES, | | | | | | CORE | | + + + + + + | CALCIUM(ALB | 10.4 (H) | 8.6 - 10.2 | [facility] | | | CORRECTED) | | mg/dL | LABORATORY | | | | | | SERVICES, | | | | | | CORE | | + + + + + + | BILIRUBIN | 13.4 (H) | 0.3 - 1.2 mg/dL | [facility] | | | TOTAL | | | LABORATORY | | | | | | SERVICES, | | | | | | CORE | | + + + + + + | TOTAL | 6.8 | 6.4 - 8.2 g/dL | [facility] | | | PROTEIN, | | | LABORATORY | | | PLASMA | | | SERVICES, | | | (LAB) | | | CORE | | + + + + + + | ALBUMIN, | 2.7 (L) | 3.5 - 4.7 g/dL | [facility] | | | PLASMA | | | LABORATORY | | | (LAB) | | | SERVICES, | | | | | | CORE | | + + + + + + | ALK PHOS | 124 | 53 - 128 U/L | [facility] | | | | | | LABORATORY | | | | | | SERVICES, | | | | | | CORE | | + + + + + + | AST(SGOT) | 64 (H) | <=41 U/L | [facility] | | | | | | LABORATORY | | | | | | SERVICES, | | | | | | CORE | | + + + + + + | ALT (SGPT) | 40 | <=60 U/L | [facility] | | [...] + + + + | ANION | 8 | 4 - 11 mmol/L | [facility] [...] MDRD equation recommended by the National | [facility] | | Kidney Disease Education Program. Estimated GFR Interpretive | LABORATORY | | Information: <60 mL/min/1.73 sq m Chronic Kidney | SERVICES, CORE | | Disease <15 mL/min/1.73 sq m Kidney Failure | | | Estimated GFR greater than 60 mL/min/1.73 sq m is of limited clinical | | | value. The MDRD equation is not valid in the following situations: - | | | Patients under 18 years of [...] + | [facility] | [address] | [place] [address] | | | SERVICES, CORE | [address] | | | + + + + + CULTURE, BLOOD BACTI & YEAST [facility] (07/17/2019 8:05 PM PDT) + + + + + + | Component | Value | Ref Range | Performed | Pathologist | | | | | At | Signature | + + + + + + | CULTURE | Final Report:No Bacteria | | [facility] | | | RESULT | or Yeast isolated at 5 | | LABORATORY | | | | days. | | SERVICES, | | | | | | CORE | | + + + + + + + + | Specimen | + + | Blood | + + + + + + + | Performing | Address | City/State/Zipcode | Phone Number | | Organization | | | | + + + + + | [email or web address] | [address] | [place] [address] | | | SERVICES, CORE | [address] | | | + + + + + PHOSPHORUS, PLASMA (07/17/2019 8:02 PM PDT) + +-------+ + + + | Component | Value | Ref Range | Performed | Pathologist | | | | | At | Signature | + +-------+ + + + | PHOSPHORUS, | 3.1 | 2.4 - 4.7 mg/dL | [facility] [...] + | [facility] | [address] | [place] [address] | | | SERVICES, CORE | [address] | | | + + + + + MAGNESIUM, PLASMA (07/17/2019 8:02 PM PDT) + +-------+ + + + | Component | Value | Ref Range | Performed | Pathologist | | | | | At | Signature | + +-------+ + + + | MAGNESIUM,P | 1.8 | 1.6 - 2.6 mg/dL | [facility] [...] [facility] | [address] | [place], [place] [address] | | | SERVICES, CORE | [address] | | | + + + + + CULTURE, BLOOD BACTI & YEAST [facility] (07/17/2019 8:01 PM PDT) + + + + + + | Component | Value | Ref Range | Performed | Pathologist | | | | | At | Signature | + + + + + + | CULTURE | Final Report:No Bacteria | | [facility] | | | RESULT | or Yeast isolated at 5 | | LABORATORY | | | | days. | | SERVICES, | | | | | | CORE | | + + + + + + + + | Specimen | + + | Blood | + + + + + + + | Performing | Address | City/State/Zipcode | Phone Number | | Organization | | | | + + + + + | [facility] | [address] | [place] [address] | | | SERVICES, CORE | [address] | | | + + + + + OSMOLALITY, PLASMA (07/17/2019 8:01 PM PDT) + +---------+ + + + | Component | Value | Ref Range | Performed | Pathologist | | | | | At | Signature | + +---------+ + + + | OSMOLALITY, | 307 (H) | 275 - 295 | [facility] | | | MEASURED | | mOsm/kg | LABORATORY | | | | | [...] + | [facility] | [address] | [place] [address] | | | CLAUDIA, ARTIS | [address] | | | + + + + + SEDIMENTATION RATE (07/17/2019 7:53 PM PDT) + +-------+ + + + | Component | Value | Ref Range | Performed | Pathologist | | | | | At | Signature | + +-------+ + + + | SEDIMENTATI | 3 | 0 - 20 mm/hr | [facility] | | | ON RATE | | | LABORATORY | | | [...] + | [facility] | [address] | [place] [address] | | | SERVICES, CORE | [address] | | | + + + + + RETICULOCYTE COUNT, BLOOD (07/17/2019 7:53 PM PDT) + + + + + + | Component | Value | Ref Range | Performed | Pathologist | | | | | At | Signature | + + + + + + | RETICULOCYT | 3.7 (H) | 0.5 - 1.5 % | [facility] | | | E COUNT | | | LABORATORY | | | | | | SERVICES, | | | | | | CORE | | + + + + + + | RETIC | 90.7 (H) | 10.0 - 90.0 | [facility] | | | ABSOLUTE # | | K/cu mm | LABORATORY [...] | [facility] | [address] | [place] [address] | | | SERVICES, CORE | [address] | | | + + + + + HEMOGLOBIN A1C, BLOOD (07/17/2019 7:53 PM PDT) + + + + + + | Component | Value | Ref Range | Performed | Pathologist | | | | | At | Signature | + + + + + + | HEMOGLOBIN | 8.1 (H) | <5.7 % | [facility] | | | A1C | | | LABORATORY | | | | | | SERVICES, | | | | | | SPECIAL IMM | | | | | | + COAG | | + + + + + + | ESTIMATED | 186Comment: The | mg/dL | [facility] | | | AVERAGE | estimated Average | | LABORATORY | | | GLUCOSE | Glucose (eAG) number is | | SERVICES, | | | | calculated from the | | SPECIAL IMM | | | | result of the A1c test. | | + COAG | | | | The eAG shows what the | | | | | | average blood glucose | | | | | | was over the previous 2 | | | | | | to 3 months. | | | | + + + + + + + + | Specimen | + + | Blood - Blood | | (substance) | + + + + + | Narrative | Performed At | + + + | Alternate forms of testing such as fructosamine should be | [facility] | | considered for monitoring servicing rep glycemic control in patients with: | LABORATORY | | Increased red cell turnover, certain hemoglobinopathies (e.g., HbS, | SERVICES, | | HbE, HbC and thalassemia syndromes), anemias, blood loss, chronic | SPECIAL IMM + | | liver disease and hemochromatosis (artefactually low HbA1c); iron | COAG | | deficiency anemia (artefactually high HbA1c due to enhanced glycation | | | of hemoglobin). | | + + + + + + + + | Performing | Address | City/State/Zipcode | Phone Number | | Organization | | | | + + + + + | [facility] | [address] | [place] [address] | | | SERVICES, SPECIAL | [address] | | | | IMM + COAG | | | | + + + + + CBC AND AUTO DIFF (07/17/2019 7:53 PM PDT) + + + + + + | Component | Value | Ref Range | Performed | Pathologist | | | | | At | Signature | + + + + + + | WHITE CELL | 6.47 | 3.50 - 10.80 | [facility] | | | COUNT | | K/cu mm | LABORATORY | | | | | | SERVICES, | | | | | | CORE | | + + + + + + | RED CELL | 2.45 (L) | 4.50 - 6.00 | [facility] | | | COUNT | | M/cu mm | LABORATORY | | | | | | SERVICES, | | | | | | CORE | | + + + + + + | HEMOGLOBIN | 8.8 (L) | 13.5 - 17.5 | [facility] | | | | | g/dL | LABORATORY | | | | | | SERVICES, | | | | | | CORE | | + + + + + + | HEMATOCRIT | 25.0 (L) | 41.0 - 53.0 % | [facility] | | | | | | LABORATORY | | | | | | SERVICES, | | | | | | CORE | | + + + + + + | MCV | 102.0 (H) | 80.0 - 100.0 fL | [facility] | | | | | | LABORATORY | | | | | | SERVICES, | | | | | | CORE | | + + + + + + | MCHC | 35.2 | 32.0 - 36.0 | [facility] | | | | | g/dL | LABORATORY | | | | | | SERVICES, | | | | | | CORE | | + + + + + + | RDW SD | 47.3 (H) | 35.1 - 46.3 fL | [facility] | | | | | | LABORATORY | | | | | | SERVICES, | | | | | | CORE | | + + + + + + | PLATELET | 33 (L) | 150 - 400 K/cu | [facility] | | | COUNT | | mm | LABORATORY | | | | | | SERVICES, | | | | | | CORE | | + + + + + + | MPV | 10.2 | 9.7 - 12.3 fL | [facility] [...] + + + + | NEUTROPHIL | 75.0 (H) | 50.0 - 70.0 % | [facility] | | | % | | | LABORATORY | | | | | | SERVICES, | | | | | | CORE | | + + + + + + | LYMPHOCYTE | 14.8 (L) | 18.0 - 42.0 % | [facility] [...] + + + | EOS % | 1.7 | 1.0 - 3.0 % | [facility] | | | | | | LABORATORY | | | | | | SERVICES, | | | | | | CORE | | + + + + + + | BASO % | 0.3 | 0.0 - 2.0 % | [facility] | | | | | | LABORATORY | | | | | | SERVICES, | | | | | | CORE | | + + + + + + | IG% | 0.5Comment: Increased | 0.0 - 1.0 % | [facility] | | | | immature granulocytes | | LABORATORY | | | | (IG) define a left | | SERVICES, | | | | shift. Immature | | CORE | | | | granulocytes (IG) are an | | | | | | automated count of | | | | | | metamyelocytes, | | | | | | myelocytes and | | | | | | promyelocytes. Bands | | | | | | are not included in the | | | | | | IG count. Bands are | | | | | | included in the | | | | | | neutrophil count. | | | | + + + + + + | NEUTROPHIL | 4.85 | 1.80 - 7.70 | [facility] | | | # | | K/cu mm | LABORATORY | | | | | | SERVICES, | | | | | | CORE | | + + + + + + | LYMPHOCYTE | 0.96 (L) | 1.00 - 4.80 | [facility] | | | # | | K/cu mm | LABORATORY | | | | | | SERVICES, | | | | | | CORE | | + + + + + + | MONOCYTE # | 0.50 | 0.10 - 0.90 | [facility] | | | | | K/cu mm | LABORATORY | | | | | | SERVICES, | | | | | | CORE | | + + + + + + | EOS # | 0.11 | 0.00 - 0.50 | [facility] | [...] | + + + + + | [facility] | [address] | [place] [address] | | | SERVICES, CORE | [address] | | | + + + + + COAGULOPATHY PANEL (INR,APTT,FIBRINOGEN) (07/17/2019 7:53 PM PDT) + + + + + + | Component | Value | Ref Range | Performed | Pathologist | | | | | At | Signature | + + + + + + | INR | 3.40 (H) | 0.90 - 1.20 INR | [facility] | | | | | | LABORATORY | | | | | | SERVICES, | | | | | | CORE | | + + + + + + | APTT | 58.2 (H) | 26.0 - 36.0 | [facility] | | | | | seconds | LABORATORY | | | | | | SERVICES, | | | | | | CORE | | + + + + + + | FIBRINOGEN | 153 | 150 - 450 mg/dL | [facility] | | | LEVEL | | | LABORATORY | | | [...] with mech. valves (2.5 - 3.5) INR APTT values for | SERVICES, CORE | | monitoring heparin therapy may be affected by specimens processed >1 | | | hour after collection. APTT Therapeutic Range: | | | (75 - 120) sec Heparin levels of 0.35 - 0.7 U/mL | | + + + + + + + + | Performing | Address | City/State/Zipcode | Phone Number | | Organization | | | | + + + + + | [facility] | [address] | [place] [address] | | | SERVICES, CORE | [address] | | | + + + + + CAPILLARY BLOOD GLUCOSE (NO CHG), POC (07/17/2019 6:59 PM PDT) + +---------+ + + + | Component | Value | Ref Range | Performed | Pathologist | | | | | At | Signature | + +---------+ + + + | BLOOD | 263 (H) | 70 - 99 mg/dL | [facility] - | | | GLUCOSE, | | | [facility] | | | POC | | | [facility] | | | | | | OF CARE | | | | | | TESTS | | + +---------+ + + + + + | Specimen | + + | Blood | + + + + + + + | Performing | Address | City/State/Zipcode | Phone Number | | Organization | | | | + + + + + | [facility] | 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, | | without long-term current use of insulin (HCC) | + + | Chronic kidney disease Chronic kidney disease, unspecified | + + | Hepatorenal syndrome (HCC) Hepatorenal syndrome | + + | Anemia Anemia, unspecified | + + | 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 | + + | Severe protein-calorie malnutrition (HCC) Other severe protein-calorie malnutrition | + + documented in this encounter Administered Medications + +--------+ +--------+------+------+ | Medication Order | MAR | Action | Dose | Rate | Site | | | Action | Date | | | | + +--------+ +--------+------+------+ | acetaminophen (TYLENOL) tablet | Given | 08/21/20 | 500 mg | | | | 500 mg 500 mg, oral, EVERY 6 | | 19 12:24 | | | | | HOURS NEEDED, Starting Sun | | PM PDT | | | | | 08/16/19 at 0810, Until Sat | | | | | | | 08/29/19 at 2312, mild pain, | | | | | | | multimodal pain control | | | | | | + +--------+ +--------+------+------+ +-------+ +--------+---+---+ | Given | 08/20/20 | 500 mg | | | | | 19 9:47 | | | | | | PM PDT | | | | +-------+ +--------+---+---+ +---+---+ | | | +---+---+ + +-------+ +-------+---+---+ | adenosine (ADENOCARD) injection | Given | 07/18/20 | 12 mg | | | | 12 mg 12 mg, intravenous, ONCE, | | 19 6:10 | | | | | 1 dose, 07/18/19 at 0645 | | AM PDT | | | | + +-------+ +-------+---+---+ +---+---+ | | | +---+---+ + +-------+ +-------+---+---+ | adenosine (ADENOCARD) injection | Given | 07/18/20 | 12 mg | | | | 12 mg 12 mg, intravenous, ONCE, | | 19 6:00 | | | | | 1 dose, 07/18/19 at 0645 | | AM PDT | | | | + +-------+ +-------+---+---+ +---+---+ | | | +---+---+ + +-------+ +------+---+---+ | adenosine (ADENOCARD) injection | Given | 07/18/20 | 6 mg | | | | 6 mg 6 mg, intravenous, ONCE, 1 | | 19 5:50 | | | | | dose, 07/18/19 at 0645 | | AM PDT | | | | + +-------+ +------+---+---+ +---+---+ | | | +---+---+ + +---------+ +--------+---+---+ | albumin human (BUMINATE, | New Bag | 07/20/20 | 12.5 g | | | | FLEXBUMIN) 25 % injection 12.5 g | | 19 12:57 | | | | | 12.5 g, intravenous, ONCE, 1 | | AM PDT | | | | | dose, 07/20/19 at 0100 | | | | | | + +---------+ +--------+---+---+ +---+---+ | | | +---+---+ + +---------+ +------+-------+---+ | albumin human (BUMINATE, | New Bag | 08/07/20 | 25 g | 120 | | | FLEXBUMIN) 25 % injection 25 g | | 19 12:05 | | mL/hr | | | 25 g, intravenous, ONCE, 1 dose, | | PM PDT | | | | | 08/07/19 at 1115 | | | | | | + +---------+ +------+-------+---+ +---+---+ | | | +---+---+ + +---------+ +------+---+---+ | albumin human (BUMINATE, | New Bag | 08/18/20 | 25 g | | | | FLEXBUMIN) 25 % injection 25 g | | 19 4:15 | | | | | 25 g, intravenous, EVERY 6 HOURS, | | AM PDT | | | | | 8 doses, First dose on Sun | | | | | | | 10/27/19 at 1000, Last dose on | | | | | | | 08/18/19 at 0400 | | | | | | + +---------+ +------+---+---+ +---------+ +------+---+---+ | New Bag | 08/17/20 | 25 g | | | | | 19 10:40 | | | | | | PM PDT | | | | +---------+ +------+---+---+ | New Bag | 08/17/20 | 25 g | | | | | 19 4:33 | | | | | | PM PDT | | | | +---------+ +------+---+---+ +---+---+ | | | +---+---+ + +---------+ +------+---+---+ | albumin human (BUMINATE, | New Bag | 08/19/20 | 25 g | | | | FLEXBUMIN) 25 % injection 25 g | | 19 1:19 | | | | | 25 g, intravenous, ONCE, 1 dose, | | AM PDT | | | | | 08/19/19 at 0015 | | | | | | + +---------+ +------+---+---+ +---+---+ | | | +---+---+ + +---------+ +------+---+---+ | albumin human (BUMINATE, | New Bag | 08/24/20 | 25 g | | | | FLEXBUMIN) 25 % injection 25 g | | 19 5:10 | | | | | 25 g, intravenous, EVERY 8 HOURS, | | AM PST | | | | | First dose on Sat08/19/19 at | | | | | | | 1430, Until Discontinued | | | | | | + +---------+ +------+---+---+ +---------+ +------+---+---+ | New Bag | 08/23/20 | 25 g | | | | | 19 9:36 | | | | | | PM PST | | | | +---------+ +------+---+---+ | New Bag | 08/23/20 | 25 g | | | | | 19 2:14 | | | | | | PM PST | | | | +---------+ +------+---+---+ +---+---+ | | | +---+---+ + +---------+ +------+---+---+ | albumin human (BUMINATE, | New Bag | 08/04/20 | 50 g | | | | FLEXBUMIN) 25 % injection 50 g | | 19 2:56 | | | | | 50 g, intravenous, ONCE, 1 dose, | | PM PDT | | | | | 08/04/19 at 1145 | | | | | | + +---------+ +------+---+---+ +---+---+ | | | +---+---+ + +---------+ +------+---+---+ | albumin human (BUMINATE, | New Bag | 07/20/20 | 75 g | | | | FLEXBUMIN) 25 % injection 75 g | | 19 5:11 | | | | | 75 g, intravenous, EVERY 24 | | PM PDT | | | | | HOURS, 2 doses, First dose on Sun | | | | | | | 07/19/19 at 1630, Last dose on | | | | | | | 07/20/19 at 1630 | | | | | | + +---------+ +------+---+---+ +---------+ +------+---+---+ | New Bag | 07/19/20 | 75 g | | | | | 19 5:40 | | | | | | PM PDT | | | | +---------+ +------+---+---+ +---+---+ | | | +---+---+ + +---------+ +------+---+---+ | albumin human (BUMINATE, | New Bag | 07/18/20 | 25 g | | | | FLEXBUMIN) 5 % injection 25 g 25 | | 19 8:14 | | | | | g, intravenous, ONCE, 1 dose, | | AM PDT | | | | | 07/18/19 at 0830 | | | | | | + +---------+ +------+---+---+ +---+---+ | | | +---+---+ + +---------+ +------+---+---+ | albumin human (BUMINATE, | New Bag | 08/18/20 | 25 g | | | | FLEXBUMIN) 5 % injection 25 g 25 | | 19 9:17 | | | | | g, intravenous, ONCE, 1 dose, | | PM PDT | | | | | 08/18/19 at 1900 | | | | | | + +---------+ +------+---+---+ +---+---+ | | | +---+---+ + +---------+ +--------+---+---+ | amiodarone (CORDARONE) IV | New Bag | 07/18/20 | 150 mg | | | | (loading dose) 150 mg, | | 19 7:23 | | | | | intravenous, ONCE, 1 dose, Sat | | AM PDT | | | | | 07/18/19 at 0715 | | | | | | + +---------+ +--------+---+---+ +---+---+ | | | +---+---+ + +---------+ +--------+---+---+ | amiodarone (CORDARONE) IV | New Bag | 07/20/20 | 150 mg | | | | (loading dose) 150 mg, | | 19 1:05 | | | | | intravenous, ONCE, 1 dose, Mon | | AM PDT | | | | | 07/20/19 at 0130 | | | | | | + +---------+ +--------+---+---+ +---+---+ | | | +---+---+ + + + +--------+--------+---+ | amiodarone (CORDARONE) 900 mg | Rate/Dos | 07/19/20 | 0.5 | 16.67 | | | in dextrose 5 % 500 mL (1.8 | e Verify | 19 10:00 | mg/min | mL/hr | | | mg/mL) IV infusion 0.5-1 mg/min | | AM PDT | | | | | (16.6667-33.3333 mL/hr, rounded | | | | | | | to 16.67-33.33 mL/hr), | | | | | | | intravenous, CONTINUOUS, Starting | | | | | | | 07/18/19 at 0715, Until Sun | | | | | | | 07/19/19 at 1130 | | | | | | + + + +--------+--------+---+ + + +--------+--------+---+ | Rate/Dose Verify | 07/19/20 | 0.5 | 16.67 | | | | 19 9:00 | mg/min | mL/hr | | | | AM PDT | | | | + + +--------+--------+---+ | Rate/Dose Verify | 07/19/20 | 0.5 | 16.67 | | | | 19 8:15 | mg/min | mL/hr | | | | AM PDT | | | | + + +--------+--------+---+ +---+---+ | | | +---+---+ + + + +--------+--------+---+ | amiodarone (CORDARONE) 900 mg | Rate/Dos | 07/20/20 | 0.5 | 16.67 | | | in dextrose 5 % 500 mL (1.8 | e Verify | 19 10:00 | mg/min | mL/hr | | | mg/mL) IV infusion 0.5-1 mg/min | | AM PDT | | | | | (16.6667-33.3333 mL/hr, rounded | | | | | | | to 16.67-33.33 mL/hr), | | | | | | | intravenous, CONTINUOUS, Starting | | | | | | | 07/20/19 at 0130, Until Mon | | | | | | | 07/20/19 at 1144 | | | | | | + + + +--------+--------+---+ + + + +--------+---+ | Rate/Dose Change | 07/20/20 | 0.5 | 16.67 | | | | 19 7:50 | mg/min | mL/hr | | | | AM PDT | | | | + + + +--------+---+ | New Bag | 07/20/20 | 1 mg/min | 33.33 | | | | 19 1:28 | | mL/hr | | | | AM PDT | | | | + + + +--------+---+ + +---+ | | | + +---+ | amiodarone (CORDARONE) IV 1 | | | dose, Starting Sat07/20/19 at | | | 0053, Until Sat07/20/19 at 0115 | | + +---+ | | | + +---+ + +-------+ +--------+---+---+ | amiodarone (CORDARONE) tablet | Given | 08/29/20 | 200 mg | | | | 200 mg 200 mg, oral, DAILY, | | 19 1:41 | | | | | First dose (after last | | PM PST | | | | | modification) on 07/27/19 at | | | | | | | 0900, Until Discontinued | | | | | | + +-------+ +--------+---+---+ +-------+ +--------+---+---+ | Given | 08/28/20 | 200 mg | | | | | 19 7:57 | | | | | | AM PST | | | | +-------+ +--------+---+---+ | Given | 08/27/20 | 200 mg | | | | | 19 7:39 | | | | | | AM PST | | | | +-------+ +--------+---+---+ +---+---+ | | | +---+---+ + +-------+ +--------+---+---+ | amiodarone (CORDARONE) tablet | Given | 07/26/20 | 400 mg | | | | 400 mg 400 mg, oral, THREE TIMES | | 19 9:56 | | | | | DAILY, 18 doses, First dose on | | AM PDT | | | | | 07/20/19 at 1600, Last dose on | | | | | | | 07/26/19 at 0900 | | | | | | + +-------+ +--------+---+---+ +-------+ +--------+---+---+ | Given | 07/25/20 | 400 mg | | | | | 19 9:58 | | | | | | PM PDT | | | | +-------+ +--------+---+---+ | Given | 07/25/20 | 400 mg | | | | | 19 4:11 | | | | | | PM PDT | | | | +-------+ +--------+---+---+ +---+---+ | | | +---+---+ + +-------+ +--------+---+---+ | amiodarone (CORDARONE) tablet | Given | 07/26/20 | 400 mg | | | | 400 mg 400 mg, oral, THREE TIMES | | 19 10:20 | | | | | DAILY, 2 doses, First dose | | PM PDT | | | | | (after last modification) on Sun | | | | | | | 07/26/19 at 1600, Last dose on Sun | | | | | | | 07/26/19 at 2200 | | | | | | + +-------+ +--------+---+---+ +-------+ +--------+---+---+ | Given | 07/26/20 | 400 mg | | | | | 19 5:21 | | | | | | PM PDT | | | | +-------+ +--------+---+---+ +---+---+ | | | +---+---+ + +-------+ +-----+---+---+ | ampicillin injection 1 g 1 g, | Given | 08/17/20 | 1 g | | | | intravenous, EVERY 6 HOURS, 4 | | 19 2:18 | | | | | doses, First dose on 08/16/19 | | AM PDT | | | | | at 0815, Last dose on Mon | | | | | | | 08/17/19 at 0215 | | | | | | + +-------+ +-----+---+---+ +-------+ +-----+---+---+ | Given | 08/16/20 | 1 g | | | | | 19 8:40 | | | | | | PM PDT | | | | +-------+ +-----+---+---+ | Given | 08/16/20 | 1 g | | | | | 19 2:12 | | | | | | PM PDT | | | | +-------+ +-----+---+---+ +---+---+ | | | +---+---+ + +-------+ +--------+---+---+ | aspirin tablet 325 mg 325 mg, | Given | 08/29/20 | 325 mg | | | | oral, DAILY, First dose on Sat | | 19 1:41 | | | | | 08/17/19 at 1215, Until | | PM PST | | | | | Discontinued | | | | | | + +-------+ +--------+---+---+ +-------+ +--------+---+---+ | Given | 08/28/20 | 325 mg | | | | | 19 7:57 | | | | | | AM PST | | | | +-------+ +--------+---+---+ | Given | 08/27/20 | 325 mg | | | | | 19 7:38 | | | | | | AM PST | | | | +-------+ +--------+---+---+ + +---+ | | | + +---+ | bisacodyl (DULCOLAX) | | | suppository 10 mg 10 mg, rectal, | | | DAILY NEEDED, Starting Mon | | | 08/17/19 at 1023, Until Sat | | | 08/29/19 at 2312, 2nd line for no | | | BM in past 2 days or if no | | | response to MIRALAX or if patient | | | unable to tolerate oral | | + +---+ | | | + +---+ + +---------+ +-----+---+---+ | cefTRIAXone IV 1 gram in NS | New Bag | 08/16/20 | 1 g | | | | (MB+) 1 g, intravenous, EVERY 24 | | 19 9:36 | | | | | HOURS, 1 dose, First dose on Sun | | AM PDT | | | | | 08/16/19 at 0815 | | | | | | + +---------+ +-----+---+---+ +---+---+ | | | +---+---+ + +-------+ +-------+---+---+ | chlorhexidine (PERIDEX) | Given | 08/16/20 | 15 mL | | | | mouthwash 15 mL 15 mL, oral, | | 19 11:09 | | | | | EVERY 6 HOURS, First dose on Sun | | AM PDT | | | | | 08/16/19 at 1000, Until | | | | | | | Discontinued | | | | | | + +-------+ +-------+---+---+ +---+---+ | | | +---+---+ + +-------+ +---------+---+---+ | cholecalciferol (VITAMIN D3) | Given | 08/14/20 | 50,000 | | | | capsule 50,000 Units 50,000 | | 19 5:00 | Units | | | | Units, oral, EVERY 7 DAYS, 8 | | PM PDT | | | | | doses, First dose on Sat07/31/19 | | | | | | | at 1430, Last dose on Sat | | | | | | | 09/18/19 at 1430 | | | | | | + +-------+ +---------+---+---+ +-------+ +---------+---+---+ | Given | 08/07/20 | 50,000 | | | | | 19 1:32 | Units | | | | | PM PDT | | | | +-------+ +---------+---+---+ | Given | 07/31/20 | 50,000 | | | | | 19 5:12 | Units | | | | | PM PDT | | | | +-------+ +---------+---+---+ +---+---+ | | | +---+---+ + +-------+ +--------+---+--------+ | darbepoetin darius (ARANESP) | Given | 08/27/20 | 40 mcg | | Right | | injection 40 mcg 40 mcg (rounded | | 19 4:55 | | | Arm | | from 47.52 mcg = 0.45 mcg/kg | | PM PST | | | | | 105.6 kg), subcutaneous, EVERY 7 | | | | | | | DAYS, First dose on Thelma 08/27/19 | | | | | | | at 1615, Until Discontinued | | | | | | + +-------+ +--------+---+--------+ +---+---+ | | | +---+---+ + +-------+ + +---+---+ | deferiprone tab 2,000 mg 2,000 | Given | 08/15/20 | 2,000 mg | | | | mg, oral, THREE TIMES DAILY, | | 19 10:03 | | | | | First dose on 07/18/19 at | | PM PDT | | | | | 1600, Until Discontinued | | | | | | + +-------+ + +---+---+ +-------+ + +---+---+ | Given | 08/15/20 | 2,000 mg | | | | | 19 5:04 | | | | | | PM PDT | | | | +-------+ + +---+---+ | Given | 08/15/20 | 2,000 mg | | | | | 19 10:52 | | | | | | AM PDT | | | | +-------+ + +---+---+ +---+---+ | | | +---+---+ + +---------+ + + +---+ | dextrose 5%-NaCl 0.45% IV | New Bag | 08/15/20 | 75 mL/hr | 75 mL/hr | | | infusion 75 mL/hr, intravenous, | | 19 7:55 | | | | | CONTINUOUS, Starting 08/15/19 | | PM PDT | | | | | at 1515, Until 08/16/19 at | | | | | | | 0810 | | | | | | + +---------+ + + +---+ + +---+ | | | + +---+ | dextrose 50 % in water IV 25 mL | | | 25 mL, intravenous, NEEDED, | | | Starting Thelma 08/20/19 at 1246, | | | Until 08/29/19 at 2312, [facility] | | | less than 70 mg/dL if patient | | | unable to take PO, per Adult | | | Hypoglycemia Protocol | | + +---+ | | | + +---+ + +-------+ +-----+---+---+ | diclofenac (VOLTAREN) 1 % gel 4 | Given | 07/23/20 | 4 g | | | | g 4 g, topical, FOUR TIMES | | 19 9:31 | | | | | DAILY NEEDED, Starting Sun | | AM PDT | | | | | 07/19/19 at 1127, Until Sun | | | | | | | 08/16/19 at 0810, pain | | | | | | + +-------+ +-----+---+---+ +-------+ +-----+---+---+ | Given | 07/22/20 | 4 g | | | | | 19 10:18 | | | | | | AM PDT | | | | +-------+ +-----+---+---+ +---+---+ | | | +---+---+ + +-------+ +--------+---+---+ | fentaNYL (SUBLIMAZE) injection | Given | 08/26/20 | 50 mcg | | | | 25-100 mcg 25-100 mcg, | | 19 9:14 | | | | | intravenous, INTRAPROCEDURE PRN, | | AM PST | | | | | 20 doses, Starting 08/26/19 at | | | | | | | 0820, Until Sat08/26/19 at 1100, | | | | | | | periprocedural pain management | | | | | | + +-------+ +--------+---+---+ +-------+ +--------+---+---+ | Given | 08/26/20 | 50 mcg | | | | | 19 8:55 | | | | | | AM PST | | | | +-------+ +--------+---+---+ | Given | 08/26/20 | 25 mcg | | | | | 19 8:45 | | | | | | AM PST | | | | +-------+ +--------+---+---+ +---+---+ | | | +---+---+ + +-------+ +--------+---+---+ | fentaNYL (SUBLIMAZE) injection | Given | 08/16/20 | 50 mcg | | | | 25-50 mcg 25-50 mcg, | | 19 12:38 | | | | | intravenous, EVERY 2 HOURS | | PM PDT | | | | | NEEDED, Starting 08/16/19 at | | | | | | | 0820, Until 08/16/19 at 1416, | | | | | | | moderate pain | | | | | | + +-------+ +--------+---+---+ +---+---+ | | | +---+---+ + +-------+ +--------+---+---+ | fluconazole (DIFLUCAN) tablet | Given | 08/24/20 | 400 mg | | | | 400 mg 400 mg, oral, EVERY SAT | | 19 8:27 | | | | | (Once per day on Sat), First dose | | AM PST | | | | | on Sat08/17/19 at 0900, Until | | | | | | | Discontinued | | | | | | + +-------+ +--------+---+---+ +-------+ +--------+---+---+ | Given | 08/17/20 | 400 mg | | | | | 19 8:32 | | | | | | AM PDT | | | | +-------+ +--------+---+---+ +---+---+ | | | +---+---+ + +---------+ +--------+---+---+ | fluconazole IV 400 mg IN NaCl | New Bag | 08/16/20 | 400 mg | | | | (RTU) 400 mg, intravenous, ONCE, | | 19 9:36 | | | | | 1 dose, Cathleen 08/16/19 at 0815 | | AM PDT | | | | + +---------+ +--------+---+---+ +---+---+ | | | +---+---+ + +-------+ +-------+---+---+ | furosemide (LASIX) injection 60 | Given | 08/23/20 | 60 mg | | | | mg 60 mg, intravenous, ONCE, | | 19 9:44 | | | | | dose, Cathleen 08/23/19 at 0900 | | AM PST | | | | + +-------+ +-------+---+---+ +---+---+ | | | +---+---+ + +-------+ +-------+---+---+ | furosemide (LASIX) injection 60 | Given | 08/24/20 | 60 mg | | | | mg 60 mg, intravenous, ONCE, | | 19 3:08 | | | | | dose, [facility] [facility] at 1345 | | PM PST | | | | + +-------+ +-------+---+---+ +---+---+ | | | +---+---+ + +-------+ +-------+---+---+ | furosemide (LASIX) injection 60 | Given | 08/24/20 | 60 mg | | | | mg 60 mg, intravenous, ONCE, 1 | | 19 10:43 | | | | | dose, 08/24/19 at 2300 | | PM PST | | | | + +-------+ +-------+---+---+ +---+---+ | | | +---+---+ + +---------+ +--------+---+---+ | ganciclovir sodium 500 mg in | New Bag | 08/18/20 | 500 mg | | | | dextrose 5 % IV 500 mg, | | 19 8:45 | | | | | intravenous, EVERY 24 HOURS, | | AM PDT | | | | | First dose on 08/16/19 at | | | | | | | 0815, Until Discontinued | | | | | | + +---------+ +--------+---+---+ +---------+ +--------+---+---+ | New Bag | 08/17/20 | 500 mg | | | | | 19 8:27 | | | | | | AM PDT | | | | +---------+ +--------+---+---+ | New Bag | 08/16/20 | 500 mg | | | | | 19 9:36 | | | | | | AM PDT | | | | +---------+ +--------+---+---+ + +---+ | | | + +---+ | glucagon (GLUCAGEN) injection 1 | | | mg 1 mg, intramuscular, | | | NEEDED, Starting [facility] 08/20/19 at | | | 1246, Until 08/29/19 at 2312, | | | CBG less than 70 mg/dL per Adult | | | Hypoglycemia Protocol | | + +---+ | | | + +---+ + +-------+ +------+---+---+ | glucose chewable tablet 16 g | Given | 08/22/20 | 16 g | | | | 16 g, oral, NEEDED, Starting | | 19 10:09 | | | | | [facility] 08/20/19 at 1246, Until Sat | | AM PDT | | | | | 08/29/19 at 2312, CBG less than 70 | | | | | | | mg/dL per Adult Hypoglycemia | | | | | | | Protocol | | | | | | + +-------+ +------+---+---+ +---+---+ | | | +---+---+ + +-------+ + +---+---+ | guar gum (BENEFIBER) oral | Given | 08/29/20 | 1 packet | | | | powder 1 packet 1 packet, oral, | | 19 1:42 | | | | | DAILY, First dose on [facility] 08/20/19 | | PM PST | | | | | at 1730, Until Discontinued | | | | | | + +-------+ + +---+---+ +-------+ + +---+---+ | Given | 08/28/20 | 1 packet | | | | | 19 10:10 | | | | | | AM PST | | | | +-------+ + +---+---+ | Given | 08/27/20 | 1 packet | | | | | 19 7:39 | | | | | | AM PST | | | | +-------+ + +---+---+ +---+---+ | | | +---+---+ + +-------+ +------+---+---+ | heparin 1,000 unit/mL injection | Given | 08/25/20 | 3 mL | | | | 1-3 mL 1-3 mL, Intracatheter, | | 19 12:23 | | | | | 4B DIALYSIS PRN, Starting Tue | | PM PST | | | | | 08/25/19 at 0856, Until Sat | | | | | | | 08/29/19 at 1330, to pack dialysis | | | | | | | catheter | | | | | | + +-------+ +------+---+---+ +---+---+ | | | +---+---+ + +-------+ +--------+---+---+ | heparin 1,000 unit/mL injection | Given | 08/29/20 | 2.4 mL | | | | 1-3 mL 1-3 mL, Intracatheter, | | 19 1:10 | | | | | 4B DIALYSIS PRN, Starting Sat | | PM PST | | | | | 08/29/19 at 1120, Until Sat | | | | | | | 08/29/19 at 1330, to pack dialysis | | | | | | | catheter | | | | | | + +-------+ +--------+---+---+ +---+---+ | | | +---+---+ + +-------+ +--------+---+---+ | heparin 1,000 unit/mL injection | Given | 08/26/20 | 2.5 mL | | | | INTRAPROCEDURE PRN, Starting | | 19 9:28 | | | | | 08/26/19 at 0928, Until Wed | | AM PST | | | | | 08/26/19 at 0928 | | | | | | + +-------+ +--------+---+---+ +---+---+ | | | +---+---+ + +-------+ +--------+---+---+ | heparin 1,000 unit/mL injection | Given | 08/26/20 | 2.5 mL | | | | INTRAPROCEDURE PRN, Starting | | 19 9:29 | | | | | 08/26/19 at 0929, Until Wed | | AM PST | | | | | 08/26/19 at 0929 | | | | | | + +-------+ +--------+---+---+ +---+---+ | | | +---+---+ + +-------+ + +---+--------+ | insulin glargine (LANTUS) | Given | 08/21/20 | 40 Units | | Right | | injection 40 Units 40 Units, | | 19 9:50 | | | Arm | | subcutaneous, AT BEDTIME, First | | PM PDT | | | | | dose on Sat08/19/19 at 2200, | | | | | | | Until Discontinued | | | | | | + +-------+ + +---+--------+ +-------+ + +---+ + | Given | 08/20/20 | 40 Units | | Left Arm | | | 19 9:48 | | | | | | PM PDT | | | | +-------+ + +---+ + | Given | 08/19/20 | 40 Units | | Left Arm | | | 19 10:56 | | | | | | PM PDT | | | | +-------+ + +---+ + +---+---+ | | | +---+---+ + +-------+ +---------+---+--------+ | insulin lispro (HUMALOG) | Given | 08/15/20 | 4 Units | | Right | | injection 1-16 Units 1-16 Units, | | 19 7:52 | | | Arm | | subcutaneous, FOUR TIMES DAILY, | | AM PDT | | | | | First dose on 07/19/19 at | | | | | | | 1700, Until Discontinued | | | | | | + +-------+ +---------+---+--------+ +-------+ +---------+---+ + | Given | 08/14/20 | 1 Units | | Left Arm | | | 19 10:54 | | | | | | PM PDT | | | | +-------+ +---------+---+ + | Given | 08/14/20 | 4 Units | | Abdomen | | | 19 10:23 | | | | | | AM PDT | | | | +-------+ +---------+---+ + +---+---+ | | | +---+---+ + +-------+ +---------+---+---------+ | insulin lispro (HUMALOG) | Given | 08/11/20 | 4 Units | | Abdomen | | injection 1-16 Units 1-16 Units, | | 19 3:02 | | | | | subcutaneous, DAILY, First dose | | AM PDT | | | | | on Sat08/05/19 at 0300, Until | | | | | | | Discontinued | | | | | | + +-------+ +---------+---+---------+ +-------+ +---------+---+ + | Given | 08/10/20 | 4 Units | | Right | | | 19 2:53 | | | Arm | | | AM PDT | | | | +-------+ +---------+---+ + | Given | 08/09/20 | 6 Units | | Left Arm | | | 19 3:43 | | | | | | AM PDT | | | | +-------+ +---------+---+ + +---+---+ | | | +---+---+ + +-------+ +---------+---+--------+ | insulin lispro (HUMALOG) | Given | 08/22/20 | 2 Units | | Right | | injection 1-16 Units 1-16 Units, | | 19 10:04 | | | Arm | | subcutaneous, FOUR TIMES DAILY, | | PM PDT | | | | | First dose on [facility] 08/20/19 at | | | | | | | 1700, Until Discontinued | | | | | | + +-------+ +---------+---+--------+ +-------+ +---------+---+---------+ | Given | 08/21/20 | 3 Units | | Right | | | 19 9:49 | | | Arm | | | PM PDT | | | | +-------+ +---------+---+---------+ | Given | 08/21/20 | 4 Units | | Abdomen | | | 19 6:53 | | | | | | PM PDT | | | | +-------+ +---------+---+---------+ +---+---+ | | | +---+---+ + +-------+ +---------+---+--------+ | insulin lispro (HUMALOG) | Given | 08/23/20 | 2 Units | | Right | | injection 1-16 Units 1-16 Units, | | 19 1:07 | | | Arm | | subcutaneous, THREE TIMES DAILY | | PM PST | | | | | WITH MEALS, First dose (after | | | | | | | last modification) on 08/23/19 | | | | | | | at 1700, Until Discontinued | | | | | | + +-------+ +---------+---+--------+ +---+---+ | | | +---+---+ + +-------+ +---------+---+--------+ | insulin lispro (HUMALOG) | Given | 08/29/20 | 2 Units | | Right | | injection 1-16 Units 1-16 Units, | | 19 8:15 | | | Arm | | subcutaneous, THREE TIMES DAILY | | AM PST | | | | | WITH MEALS, First dose (after | | | | | | | last reorder) on 08/23/19 at | | | | | | | 1330, Until Discontinued | | | | | | + +-------+ +---------+---+--------+ +-------+ +---------+---+ + | Given | 08/28/20 | 2 Units | | Left Arm | | | 19 6:14 | | | | | | PM PST | | | | +-------+ +---------+---+ + | Given | 08/28/20 | 2 Units | | Left Arm | | | 19 7:58 | | | | | | AM PST | | | | +-------+ +---------+---+ + +---+---+ | | | +---+---+ + +-------+ + +---+ + | insulin lispro (HUMALOG) | Given | 07/20/20 | 10 Units | | Left Arm | | injection 10 Units 10 Units, | | 19 10:17 | | | | | subcutaneous, THREE TIMES DAILY | | AM PDT | | | | | WITH MEALS, First dose on Sun | | | | | | | 07/19/19 at 1700, Until | | | | | | | Discontinued | | | | | | + +-------+ + +---+ + +-------+ + +---+--------+ | Given | 07/19/20 | 10 Units | | Right | | | 19 7:25 | | | Arm | | | PM PDT | | | | +-------+ + +---+--------+ +---+---+ | | | +---+---+ + +-------+ + +---+---------+ | insulin lispro (HUMALOG) | Given | 08/05/20 | 10 Units | | Abdomen | | injection 10 Units 10 Units, | | 19 9:10 | | | | | subcutaneous, THREE TIMES DAILY | | AM PDT | | | | | WITH MEALS, First dose (after | | | | | | | last modification) on 07/26/19 | | | | | | | at 0730, Until Discontinued | | | | | | + +-------+ + +---+---------+ +-------+ + +---+ + | Given | //20 | 10 Units | | Abdomen | | | 19 7:25 | | | | | | PM PDT | | | | +-------+ + +---+ + | Given | 20 | 10 Units | | Left Arm | | | 19 12:41 | | | | | | PM PDT | | | | +-------+ + +---+ + +---+---+ | | | +---+---+ + +-------+ + +---+--------+ | insulin lispro (HUMALOG) | Given | 08/27/20 | 10 Units | | Right | | injection 10 Units 10 Units, | | 19 7:01 | | | Arm | | subcutaneous, EVERY DINNER, First | | PM PST | | | | | dose (after last modification) | | | | | | | on [facility] 08/27/19 at 1700, Until | | | | | | | Discontinued | | | | | | + +-------+ + +---+--------+ +---+---+ | | | +---+---+ + +-------+ +---------+---+ + | insulin lispro (HUMALOG) | Given | 08/28/20 | 6 Units | | Left Arm | | injection 12 Units 12 Units, | | 19 6:14 | | | | | subcutaneous, EVERY DINNER, First | | PM PST | | | | | dose (after last modification) | | | | | | | on Sat08/28/19 at 1715, Until | | | | | | | Discontinued | | | | | | + +-------+ +---------+---+ + +---+---+ | | | +---+---+ + +-------+ + +---+ + | insulin lispro (HUMALOG) | Given | 07/25/20 | 14 Units | | Left Arm | | injection 14 Units 14 Units, | | 19 1:41 | | | | | subcutaneous, THREE TIMES DAILY | | PM PDT | | | | | WITH MEALS, First dose (after | | | | | | | last modification) on Sat07/20/19 | | | | | | | at 1200, Until Discontinued | | | | | | + +-------+ + +---+ + +-------+ + +---+ + | Given | 07/25/20 | 14 Units | | Left Arm | | | 19 9:16 | | | | | | AM PDT | | | | +-------+ + +---+ + | Given | 07/24/20 | 14 Units | | Left Arm | | | 19 6:54 | | | | | | PM PDT | | | | +-------+ + +---+ + +---+---+ | | | +---+---+ + +-------+ + +---+--------+ | insulin lispro (HUMALOG) | Given | 08/15/20 | 15 Units | | Right | | injection 15 Units 15 Units, | | 19 7:51 | | | Arm | | subcutaneous, THREE TIMES DAILY | | AM PDT | | | | | WITH MEALS, First dose (after | | | | | | | last modification) on Wed | | | | | | | 08/05/19 at 1200, Until | | | | | | | Discontinued | | | | | | + +-------+ + +---+--------+ +-------+ + +---+---------+ | Given | 08/14/20 | 15 Units | | Abdomen | | | 19 1:07 | | | | | | PM PDT | | | | +-------+ + +---+---------+ | Given | 08/13/20 | 15 Units | | Abdomen | | | 19 4:37 | | | | | | PM PDT | | | | +-------+ + +---+---------+ +---+---+ | | | +---+---+ + +-------+ +---------+---+---------+ | insulin lispro (HUMALOG) | Given | 08/24/20 | 2 Units | | Abdomen | | injection 2 Units 2 Units, | | 19 12:18 | | | | | subcutaneous, ONCE, 1 dose, Mon | | AM PST | | | | | 08/24/19 at 0045 | | | | | | + +-------+ +---------+---+---------+ +---+---+ | | | +---+---+ + +-------+ +---------+---+ + | insulin lispro (HUMALOG) | Given | 08/25/20 | 3 Units | | Left Arm | | injection 3 Units 3 Units, | | 19 7:55 | | | | | subcutaneous, THREE TIMES DAILY | | AM PST | | | | | WITH MEALS, First dose on Mon | | | | | | | 08/24/19 at 1630, Until | | | | | | | Discontinued | | | | | | + +-------+ +---------+---+ + +-------+ +---------+---+--------+ | Given | 08/24/20 | 3 Units | | Right | | | 19 7:11 | | | Arm | | | PM PST | | | | +-------+ +---------+---+--------+ +---+---+ | | | +---+---+ + +-------+ +---------+---+ + | insulin lispro (HUMALOG) | Given | 08/27/20 | 3 Units | | Left Arm | | injection 3 Units 3 Units, | | 19 7:29 | | | | | subcutaneous, EVERY BREAKFAST, | | AM PST | | | | | First dose (after last | | | | | | | modification) on Sat08/26/19 at | | | | | | | 0730, Until Discontinued | | | | | | + +-------+ +---------+---+ + +---+---+ | | | +---+---+ + +-------+ +---------+---+ + | insulin lispro (HUMALOG) | Given | 08/26/20 | 5 Units | | Left Arm | | injection 5 Units 5 Units, | | 19 12:24 | | | | | subcutaneous, EVERY LUNCH, First | | PM PST | | | | | dose on Sat08/25/19 at 1200, | | | | | | | Until Discontinued | | | | | | + +-------+ +---------+---+ + +-------+ +---------+---+ + | Given | 08/25/20 | 5 Units | | Left Arm | | | 19 2:32 | | | | | | PM PST | | | | +-------+ +---------+---+ + +---+---+ | | | +---+---+ + +-------+ +---------+---+--------+ | insulin lispro (HUMALOG) | Given | 08/29/20 | 5 Units | | Right | | injection 5 Units 5 Units, | | 19 8:15 | | | Arm | | subcutaneous, EVERY BREAKFAST, | | AM PST | | | | | First dose (after last | | | | | | | modification) on Sat08/28/19 at | | | | | | | 0730, Until Discontinued | | | | | | + +-------+ +---------+---+--------+ +-------+ +---------+---+ + | Given | 08/28/20 | 5 Units | | Left Arm | | | 19 7:58 | | | | | | AM PST | | | | +-------+ +---------+---+ + +---+---+ | | | +---+---+ + +-------+ +---------+---+ + | insulin lispro (HUMALOG) | Given | 08/29/20 | 4 Units | | Left Arm | | injection 8 Units 8 Units, | | 19 3:28 | | | | | subcutaneous, EVERY LUNCH, First | | PM PST | | | | | dose (after last modification) on | | | | | | | [facility] 08/27/19 at 1200, Until | | | | | | | Discontinued | | | | | | + +-------+ +---------+---+ + +-------+ +---------+---+--------+ | Given | 08/28/20 | 8 Units | | Right | | | 19 1:38 | | | Arm | | | PM PST | | | | +-------+ +---------+---+--------+ | Given | 08/27/20 | 8 Units | | Right | | | 19 1:55 | | | Arm | | | PM PST | | | | +-------+ +---------+---+--------+ +---+---+ | | | +---+---+ + +-------+ +---------+---+--------+ | insulin lispro (HUMALOG) | Given | 08/26/20 | 9 Units | | Right | | injection 9 Units 9 Units, | | 19 7:35 | | | Arm | | subcutaneous, EVERY DINNER, First | | PM PST | | | | | dose on Sat08/25/19 at 1700, | | | | | | | Until Discontinued | | | | | | + +-------+ +---------+---+--------+ +-------+ +---------+---+--------+ | Given | 08/25/20 | 9 Units | | Right | | | 19 7:05 | | | Arm | | | PM PST | | | | +-------+ +---------+---+--------+ +---+---+ | | | +---+---+ + +-------+ + +---+--------+ | insulin NPH (HUMULIN N) | Given | 07/19/20 | 10 Units | | Right | | injection 10 Units 10 Units, | | 19 1:55 | | | Arm | | subcutaneous, ONCE, 1 dose, Sun | | PM PDT | | | | | 07/19/19 at 1330 | | | | | | + +-------+ + +---+--------+ +---+---+ | | | +---+---+ + +-------+ + +---+ + | insulin NPH (HUMULIN N) | Given | 08/20/20 | 13 Units | | Left Arm | | injection 13 Units 13 Units, | | 19 6:02 | | | | | subcutaneous, EVERY 8 HOURS, | | AM PDT | | | | | First dose on 08/19/19 at | | | | | | | 2200, Until Discontinued | | | | | | + +-------+ + +---+ + +-------+ + +---+ + | Given | 08/19/20 | 13 Units | | Left Arm | | | 19 10:56 | | | | | | PM PDT | | | | +-------+ + +---+ + +---+---+ | | | +---+---+ + +-------+ + +---+ + | insulin NPH (HUMULIN N) | Given | 07/27/20 | 16 Units | | Left Arm | | injection 16 Units 16 Units, | | 19 9:32 | | | | | subcutaneous, BEFORE BREAKFAST | | AM PDT | | | | | AND BEDTIME, First dose (after | | | | | | | last modification) on 07/25/19 | | | | | | | at 2100, Until Discontinued | | | | | | + +-------+ + +---+ + +-------+ + +---+ + | Given | 07/26/20 | 16 Units | | Left Arm | | | 19 10:04 | | | | | | PM PDT | | | | +-------+ + +---+ + | Given | 07/26/20 | 16 Units | | Left Arm | | | 19 8:32 | | | | | | AM PDT | | | | +-------+ + +---+ + +---+---+ | | | +---+---+ + +-------+ + +---+ + | insulin NPH (HUMULIN N) | Given | 08/27/20 | 17 Units | | Left Arm | | injection 17 Units 17 Units, | | 19 7:39 | | | | | subcutaneous, EVERY MORNING, | | AM PST | | | | | First dose on 08/22/19 at | | | | | | | 1400, Until Discontinued | | | | | | + +-------+ + +---+ + +-------+ + +---+ + | Given | 08/26/20 | 17 Units | | Right | | | 19 12:01 | | | Arm | | | PM PST | | | | +-------+ + +---+ + | Given | 08/25/20 | 17 Units | | Left Arm | | | 19 7:55 | | | | | | AM PST | | | | +-------+ + +---+ + +---+---+ | | | +---+---+ + +-------+ + +---+---------+ | insulin NPH (HUMULIN N) | Given | 07/20/20 | 18 Units | | Abdomen | | injection 18 Units 18 Units, | | 19 5:20 | | | | | subcutaneous, BEFORE BREAKFAST | | AM PDT | | | | | AND BEDTIME, First dose (after | | | | | | | last modification) on 07/19/19 | | | | | | | at 2100, Until Discontinued | | | | | | + +-------+ + +---+---------+ +-------+ + +---+ + | Given | 07/19/20 | 18 Units | | Left Arm | | | 19 8:10 | | | | | | PM PDT | | | | +-------+ + +---+ + +---+---+ | | | +---+---+ + +-------+ + +---+--------+ | insulin NPH (HUMULIN N) | Given | 07/29/20 | 18 Units | | Right | | injection 18 Units 18 Units, | | 19 9:36 | | | Arm | | subcutaneous, BEFORE BREAKFAST | | AM PDT | | | | | AND BEDTIME, First dose (after | | | | | | | last modification) on 07/27/19 | | | | | | | at 2100, Until Discontinued | | | | | | + +-------+ + +---+--------+ +-------+ + +---+ + | Given | 07/29/20 | 18 Units | | Left Arm | | | 19 1:25 | | | | | | AM PDT | | | | +-------+ + +---+ + | Given | 07/28/20 | 18 Units | | Left Arm | | | 19 9:47 | | | | | | AM PDT | | | | +-------+ + +---+ + +---+---+ | | | +---+---+ + +-------+ + +---+--------+ | insulin NPH (HUMULIN N) | Given | 08/29/20 | 18 Units | | Right | | injection 18 Units 18 Units, | | 19 8:16 | | | Arm | | subcutaneous, EVERY MORNING, | | AM PST | | | | | First dose (after last | | | | | | | modification) on Sat08/28/19 at | | | | | | | 0900, Until Discontinued | | | | | | + +-------+ + +---+--------+ +-------+ + +---+ + | Given | 08/28/20 | 18 Units | | Left Arm | | | 19 7:58 | | | | | | AM PST | | | | +-------+ + +---+ + +---+---+ | | | +---+---+ + +-------+ + +---+ + | insulin NPH (HUMULIN N) | Given | 07/25/20 | 20 Units | | Left Arm | | injection 20 Units 20 Units, | | 19 9:16 | | | | | subcutaneous, BEFORE BREAKFAST | | AM PDT | | | | | AND BEDTIME, First dose (after | | | | | | | last modification) on Sat07/20/19 | | | | | | | at 2100, Until Discontinued | | | | | | + +-------+ + +---+ + +-------+ + +---+ + | Given | 07/24/20 | 20 Units | | Right | | | 19 7:41 | | | Arm | | | AM PDT | | | | +-------+ + +---+ + | Given | 07/23/20 | 20 Units | | Left Leg | | | 19 8:05 | | | | | | PM PDT | | | | +-------+ + +---+ + +---+---+ | | | +---+---+ + +-------+ + +---+ + | insulin NPH (HUMULIN N) | Given | 07/30/20 | 20 Units | | Left Arm | | injection 20 Units 20 Units, | | 19 8:58 | | | | | subcutaneous, BEFORE BREAKFAST | | AM PDT | | | | | AND BEDTIME, First dose (after | | | | | | | last modification) on Sat07/29/19 | | | | | | | at 2100, Until Discontinued | | | | | | + +-------+ + +---+ + +-------+ + +---+---------+ | Given | 07/29/20 | 20 Units | | Abdomen | | | 19 9:33 | | | | | | PM PDT | | | | +-------+ + +---+---------+ +---+---+ | | | +---+---+ + +-------+ + +---+ + | insulin NPH (HUMULIN N) | Given | 08/03/20 | 22 Units | | Left Arm | | injection 22 Units 22 Units, | | 19 7:48 | | | | | subcutaneous, BEFORE BREAKFAST | | AM PDT | | | | | AND BEDTIME, First dose (after | | | | | | | last modification) on [facility] | | | | | | | 07/30/19 at 2100, Until | | | | | | | Discontinued | | | | | | + +-------+ + +---+ + +-------+ + +---+ + | Given | 08/02/20 | 22 Units | | Left Arm | | | 19 10:41 | | | | | | PM PDT | | | | +-------+ + +---+ + | Given | 08/02/20 | 22 Units | | Right | | | 19 9:13 | | | Arm | | | AM PDT | | | | +-------+ + +---+ + +---+---+ | | | +---+---+ + +-------+ + +---+ + | insulin NPH (HUMULIN N) | Given | 08/15/20 | 25 Units | | Left Arm | | injection 25 Units 25 Units, | | 19 6:51 | | | | | subcutaneous, BEFORE BREAKFAST, | | AM PDT | | | | | First dose (after last | | | | | | | modification) on Sat08/04/19 at | | | | | | | 0630, Until Discontinued | | | | | | + +-------+ + +---+ + +-------+ + +---+ + | Given | 08/14/20 | 25 Units | | Left Arm | | | 19 5:55 | | | | | | AM PDT | | | | +-------+ + +---+ + | Given | 08/13/20 | 25 Units | | Abdomen | | | 19 6:51 | | | | | | AM PDT | | | | +-------+ + +---+ + +---+---+ | | | +---+---+ + +-------+ + +---+---------+ | insulin NPH (HUMULIN N) | Given | 08/21/20 | 26 Units | | Abdomen | | injection 26 Units 26 Units, | | 19 2:00 | | | | | subcutaneous, EVERY 8 HOURS, | | PM PDT | | | | | First dose (after last | | | | | | | modification) on [facility] 08/20/19 at | | | | | | | 1400, Until Discontinued | | | | | | + +-------+ + +---+---------+ +-------+ + +---+ + | Given | 08/21/20 | 26 Units | | Left Arm | | | 19 5:31 | | | | | | AM PDT | | | | +-------+ + +---+ + | Given | 08/20/20 | 26 Units | | Left Arm | | | 19 9:48 | | | | | | PM PDT | | | | +-------+ + +---+ + +---+---+ | | | +---+---+ + +-------+ + +---+---------+ | insulin NPH (HUMULIN N) | Given | 08/03/20 | 35 Units | | Abdomen | | injection 35 Units 35 Units, | | 19 11:00 | | | | | subcutaneous, AT BEDTIME, First | | PM PDT | | | | | dose on Sat08/03/19 at 2200, | | | | | | | Until Discontinued | | | | | | + +-------+ + +---+---------+ +---+---+ | | | +---+---+ + +-------+ + +---+ + | insulin NPH (HUMULIN N) | Given | 08/04/20 | 42 Units | | Left Arm | | injection 42 Units 42 Units, | | 19 10:51 | | | | | subcutaneous, AT BEDTIME, First | | PM PDT | | | | | dose (after last modification) on | | | | | | | 08/04/19 at 2200, Until | | | | | | | Discontinued | | | | | | + +-------+ + +---+ + +---+---+ | | | +---+---+ + +-------+ + +---+--------+ | insulin NPH (HUMULIN N) | Given | 08/05/20 | 50 Units | | Right | | injection 50 Units 50 Units, | | 19 11:32 | | | Arm | | subcutaneous, AT BEDTIME, First | | PM PDT | | | | | dose (after last modification) on | | | | | | | 08/05/19 at 2200, Until | | | | | | | Discontinued | | | | | | + +-------+ + +---+--------+ +---+---+ | | | +---+---+ + +-------+ + +---+---------+ | insulin NPH (HUMULIN N) | Given | 08/06/20 | 58 Units | | Abdomen | | injection 58 Units 58 Units, | | 19 10:32 | | | | | subcutaneous, AT BEDTIME, First | | PM PDT | | | | | dose (after last modification) on | | | | | | | [facility] 08/06/19 at 2200, Until | | | | | | | Discontinued | | | | | | + +-------+ + +---+---------+ +---+---+ | | | +---+---+ + +-------+ +---------+---+--------+ | insulin NPH (HUMULIN N) | Given | 08/25/20 | 6 Units | | Right | | injection 6 Units 6 Units, | | 19 9:33 | | | Arm | | subcutaneous, AT BEDTIME, First | | PM PST | | | | | dose (after last modification) on | | | | | | | [place] 08/23/19 at 2200, Until | | | | | | | Discontinued | | | | | | + +-------+ +---------+---+--------+ +-------+ +---------+---+--------+ | Given | 08/24/20 | 6 Units | | Right | | | 19 9:44 | | | Arm | | | PM PST | | | | +-------+ +---------+---+--------+ | Given | 08/23/20 | 6 Units | | Right | | | 19 9:49 | | | Arm | | | PM PST | | | | +-------+ +---------+---+--------+ +---+---+ | | | +---+---+ + +-------+ + +---+---------+ | insulin NPH (HUMULIN N) | Given | 08/10/20 | 62 Units | | Abdomen | | injection 62 Units 62 Units, | | 19 11:10 | | | | | subcutaneous, AT BEDTIME, First | | PM PDT | | | | | dose (after last modification) on | | | | | | | 08/07/19 at 2200, Until | | | | | | | Discontinued | | | | | | + +-------+ + +---+---------+ +-------+ + +---+ + | Given | 08/09/20 | 62 Units | | Left Arm | | | 19 10:32 | | | | | | PM PDT | | | | +-------+ + +---+ + | Given | 08/08/20 | 62 Units | | Left Arm | | | 19 9:59 | | | | | | PM PDT | | | | +-------+ + +---+ + +---+---+ | | | +---+---+ + +-------+ + +---+ + | insulin NPH (HUMULIN N) | Given | 08/14/20 | 66 Units | | Left Arm | | injection 66 Units 66 Units, | | 19 10:55 | | | | | subcutaneous, AT BEDTIME, First | | PM PDT | | | | | dose (after last modification) on | | | | | | | 08/11/19 at 2200, Until | | | | | | | Discontinued | | | | | | + +-------+ + +---+ + +-------+ + +---+ + | Given | 08/14/20 | 66 Units | | Left Arm | | | 19 12:15 | | | | | | AM PDT | | | | +-------+ + +---+ + | Given | 08/12/20 | 60 Units | | Left Arm | | | 19 11:14 | | | | | | PM PDT | | | | +-------+ + +---+ + +---+---+ | | | +---+---+ + +-------+ +---------+---+ + | insulin NPH (HUMULIN N) | Given | 08/26/20 | 7 Units | | Left Arm | | injection 7 Units 7 Units, | | 19 10:41 | | | | | subcutaneous, AT BEDTIME, First | | PM PST | | | | | dose (after last modification) on | | | | | | | 08/26/19 at 2200, Until | | | | | | | Discontinued | | | | | | + +-------+ +---------+---+ + +---+---+ | | | +---+---+ + +-------+ +---------+---+--------+ | insulin NPH (HUMULIN N) | Given | 08/22/20 | 8 Units | | Right | | injection 8 Units 8 Units, | | 19 10:10 | | | Arm | | subcutaneous, AT BEDTIME, First | | PM PDT | | | | | dose on 08/22/19 at 2200, | | | | | | | Until Discontinued | | | | | | + +-------+ +---------+---+--------+ +---+---+ | | | +---+---+ + +-------+ +---------+---+ + | insulin NPH (HUMULIN N) | Given | 08/28/20 | 8 Units | | Left Arm | | injection 8 Units 8 Units, | | 19 9:20 | | | | | subcutaneous, AT BEDTIME, First | | PM PST | | | | | dose (after last modification) on | | | | | | | [facility] 08/27/19 at 2200, Until | | | | | | | Discontinued | | | | | | + +-------+ +---------+---+ + +-------+ +---------+---+--------+ | Given | 08/27/20 | 8 Units | | Right | | | 19 8:58 | | | Arm | | | PM PST | | | | +-------+ +---------+---+--------+ +---+---+ | | | +---+---+ + + + +---------+---+---+ | insulin regular bolus from | Bolus | 07/18/20 | 5 Units | | | | continuous infusion 1-50 Units | from | 19 12:12 | | | | | 1-50 Units, intravenous, BOLUS | Same Bag | AM PDT | | | | | PRN, Starting 07/17/19 at | | | | | | | 2021, Until 07/19/19 at 1313, | | | | | | | Per [facility] Infusion Protocol | | | | | | + + + +---------+---+---+ +---+---+ | | | +---+---+ + + + +---------+---+---+ | insulin regular bolus from | Bolus | 08/16/20 | 4 Units | | | | continuous infusion 1-50 Units | from | 19 11:04 | | | | | 1-50 Units, intravenous, BOLUS | Same Bag | AM PDT | | | | | PRN, Starting [place] 08/16/19 at | | | | | | | 0810, Until [facility] 08/20/19 at 1247, | | | | | | | Per [facility] Infusion Protocol | | | | | | + + + +---------+---+---+ +---+---+ | | | +---+---+ + + + + +-------+---+ | insulin regular in NaCl 0.9% IV | Rate/Dos | 07/19/20 | 2.2 | 2.2 | | | infusion (1 unit/mL) 0.1-50 | e Change | 19 1:12 | Units/hr | mL/hr | | | Units/hr (0.1-50 mL/hr), | | PM PDT | | | | | intravenous, CONTINUOUS, Starting | | | | | | | Sat07/17/19 at 2100, Until [place] | | | | | | | 07/19/19 at 1313 | | | | | | + + + + +-------+---+ + + + +---------+---+ | Rate/Dose Change | 07/19/20 | 5 | 5 mL/hr | | | | 19 12:04 | Units/hr | | | | | PM PDT | | | | + + + +---------+---+ | Rate/Dose Change | 07/19/20 | 4.4 | 4.4 | | | | 19 11:00 | Units/hr | mL/hr | | | | AM PDT | | | | + + + +---------+---+ +---+---+ | | | +---+---+ + + + + +---------+---+ | insulin regular in NaCl 0.9% IV | Rate/Dos | 08/20/20 | 6 | 6 mL/hr | | | infusion (1 unit/mL) 0.1-50 | e Change | 19 11:43 | Units/hr | | | | Units/hr (0.1-50 mL/hr), | | AM PDT | | | | | intravenous, CONTINUOUS, Starting | | | | | | | 08/16/19 at 0815, Until [facility] | | | | | | | 08/20/19 at 1247 | | | | | | + + + + +---------+---+ + + + +---------+---+ | Rate/Dose Change | 08/20/20 | 7.5 | 7.5 | | | | 19 10:56 | Units/hr | mL/hr | | | | AM PDT | | | | + + + +---------+---+ | Rate/Dose Change | 08/20/20 | 6 | 6 mL/hr | | | | 19 10:05 | Units/hr | | | | | AM PDT | | | | + + + +---------+---+ +---+---+ | | | +---+---+ + +---------+ +--------+---+---+ | lactated ringers IV 500 mL, | New Bag | 07/18/20 | 500 mL | | | | intravenous, ONCE, 1 dose, Sat | | 19 10:33 | | | | | 07/18/19 at 1045 | | AM PDT | | | | + +---------+ +--------+---+---+ +---+---+ | | | +---+---+ + +---------+ + +---+---+ | lactated ringers IV 1,000 mL, | New Bag | 07/19/20 | 1,000 mL | | | | intravenous, ONCE, 1 dose, Sun | | 19 3:44 | | | | | 07/19/19 at 1545 | | PM PDT | | | | + +---------+ + +---+---+ +---+---+ | | | +---+---+ + +---------+ +--------+---+---+ | lactated ringers IV 500 mL, | New Bag | 07/26/20 | 500 mL | | | | intravenous, ONCE, 1 dose, Sun | | 19 12:34 | | | | | 07/26/19 at 1300 | | PM PDT | | | | + +---------+ +--------+---+---+ +---+---+ | | | +---+---+ + + + +-------+-------+---+ | lactated ringers IV 100 mL/hr, | Rate/Dos | 08/05/20 | 100 | 100 | | | intravenous, CONTINUOUS, | e Verify | 19 12:00 | mL/hr | mL/hr | | | Starting 08/04/19 at 1815, | | AM PDT | | | | | Until 08/05/19 at 0414 | | | | | | + + + +-------+-------+---+ +---------+ +-------+-------+---+ | New Bag | 08/04/20 | 100 | 100 | | | | 19 7:08 | mL/hr | mL/hr | | | | PM PDT | | | | +---------+ +-------+-------+---+ +---+---+ | | | +---+---+ + +---------+ +--------+---+---+ | lactated ringers IV 500 mL, | New Bag | 08/06/20 | 500 mL | | | | intravenous, ONCE, 1 dose, [facility] | | 19 11:05 | | | | | 08/06/19 at 1130 | | AM PDT | | | | + +---------+ +--------+---+---+ +---+---+ | | | +---+---+ + + + + + +---+ | lactated ringers IV 75 mL/hr, | Rate/Dos | 08/17/20 | 75 mL/hr | 75 mL/hr | | | intravenous, CONTINUOUS, Starting | e Verify | 19 8:00 | | | | | 08/16/19 at 0815, Until Mon | | AM PDT | | | | | 08/17/19 at 1021 | | | | | | + + + + + +---+ + + + + +---+ | Rate/Dose Verify | 08/17/20 | 75 mL/hr | 75 mL/hr | | | | 19 7:00 | | | | | | AM PDT | | | | + + + + +---+ | Rate/Dose Verify | 08/17/20 | 75 mL/hr | 75 mL/hr | | | | 19 6:00 | | | | | | AM PDT | | | | + + + + +---+ +---+---+ | | | +---+---+ + +-------+ +------+---+---+ | lactulose (ENULAC) 10 g 10 g | Given | 07/18/20 | 10 g | | | | (15 mL), oral, THREE TIMES DAILY | | 19 3:27 | | | | | NEEDED, Starting 07/17/19 | | AM PDT | | | | | at 2038, Until 07/18/19 at | | | | | | | 1243, constipation, Titrate for | | | | | | | 3-5 BMs per day | | | | | | + +-------+ +------+---+---+ +---+---+ | | | +---+---+ + +-------+ +------+---+---+ | lactulose (ENULAC) 10 g 10 g | Given | 08/14/20 | 10 g | | | | (15 mL), oral, EVERY 2 HOURS | | 19 6:10 | | | | | NEEDED, Starting 07/18/19 at | | PM PDT | | | | | 1530, Until 08/16/19 at 0810, | | | | | | | constipation, Titrate for 3-5 | | | | | | | BMs per day. HOLD for >5 BMS in | | | | | | | one day. | | | | | | + +-------+ +------+---+---+ +-------+ +------+---+---+ | Given | 08/13/20 | 10 g | | | | | 19 6:44 | | | | | | PM PDT | | | | +-------+ +------+---+---+ | Given | 08/13/20 | 20 g | | | | | 19 3:52 | | | | | | PM PDT | | | | +-------+ +------+---+---+ +---+---+ | | | +---+---+ + +-------+ +------+---+---+ | lactulose (ENULAC) 10 g 10 g | Given | 08/14/20 | 10 g | | | | (15 mL), oral, EVERY EVENING, | | 19 10:20 | | | | | First dose on 08/11/19 at | | PM PDT | | | | | 2100, Until Discontinued | | | | | | + +-------+ +------+---+---+ +-------+ +------+---+---+ | Given | 08/13/20 | 10 g | | | | | 19 9:28 | | | | | | PM PDT | | | | +-------+ +------+---+---+ | Given | 08/12/20 | 10 g | | | | | 19 9:20 | | | | | | PM PDT | | | | +-------+ +------+---+---+ +---+---+ | | | +---+---+ + +-------+ +------+---+---+ | lactulose (ENULAC) 30 g 30 g | Given | 08/11/20 | 30 g | | | | (45 mL), oral, THREE TIMES DAILY, | | 19 8:24 | | | | | First dose (after last | | AM PDT | | | | | modification) on 07/19/19 at | | | | | | | 1600, Until Discontinued | | | | | | + +-------+ +------+---+---+ +-------+ +------+---+---+ | Given | 08/10/20 | 30 g | | | | | 19 7:54 | | | | | | AM PDT | | | | +-------+ +------+---+---+ | Given | 08/09/20 | 30 g | | | | | 19 8:22 | | | | | | AM PDT | | | | +-------+ +------+---+---+ +---+---+ | | | +---+---+ + +-------+ +------+---+---+ | lactulose (ENULAC) liquid 20 g | Given | 07/19/20 | 20 g | | | | 20 g (30 mL), oral, THREE TIMES | | 19 9:07 | | | | | DAILY, First dose on Sat07/17/19 | | AM PDT | | | | | at 2230, Until Discontinued | | | | | | + +-------+ +------+---+---+ +-------+ +------+---+---+ | Given | 07/18/20 | 20 g | | | | | 19 11:28 | | | | | | AM PDT | | | | +-------+ +------+---+---+ | Given | 07/17/20 | 20 g | | | | | 19 10:48 | | | | | | PM PDT | | | | +-------+ +------+---+---+ +---+---+ | | | +---+---+ + +-------+ +------+---+---+ | lactulose (ENULAC) liquid 20 g | Given | 08/15/20 | 20 g | | | | 20 g (30 mL), oral, EVERY | | 19 10:52 | | | | | MORNING, First dose (after last | | AM PDT | | | | | modification) on Sat08/11/19 at | | | | | | | 1530, Until Discontinued | | | | | | + +-------+ +------+---+---+ +-------+ +------+---+---+ | Given | 08/14/20 | 20 g | | | | | 19 10:06 | | | | | | AM PDT | | | | +-------+ +------+---+---+ | Given | 08/13/20 | 20 g | | | | | 19 9:37 | | | | | | AM PDT | | | | +-------+ +------+---+---+ +---+---+ | | | +---+---+ + + + +---------+---+---------+ | lidocaine (LIDODERM) 5 % patch | Applied | 08/23/20 | 1 patch | | Abdomen | | 1 patch 1 patch, transdermal, | Patch | 19 4:51 | | | | | EVERY 24 HOURS, First dose on Sun | | PM PST | | | | | 08/16/19 at 1630, Until | | | | | | | Discontinued | | | | | | + + + +---------+---+---------+ + + +---------+---+---------+ | Applied Patch | 08/19/20 | 1 patch | | Abdomen | | | 19 6:43 | | | | | | PM PDT | | | | + + +---------+---+---------+ | Applied Patch | 08/18/20 | 1 patch | | Abdomen | | | 19 3:54 | | | | | | PM PDT | | | | + + +---------+---+---------+ +---+---+ | | | +---+---+ + + + +---------+---+---------+ | lidocaine (LIDODERM) 5 % patch | Applied | 08/23/20 | 1 patch | | Abdomen | | 1 patch 1 patch, transdermal, | Patch | 19 4:51 | | | | | EVERY 24 HOURS, First dose on Sun | | PM PST | | | | | 08/16/19 at 1630, Until | | | | | | | Discontinued | | | | | | + + + +---------+---+---------+ + + +---------+---+---------+ | Applied Patch | 08/19/20 | 1 patch | | Abdomen | | | 19 6:43 | | | | | | PM PDT | | | | + + +---------+---+---------+ | Applied Patch | 08/18/20 | 1 patch | | Abdomen | | | 19 3:54 | | | | | | PM PDT | | | | + + +---------+---+---------+ +---+---+ | | | +---+---+ + +-------+ +---+---+---+ | lidocaine (XYLOCAINE URO-JET) 2 | Given | 08/01/20 | | | | | % jelly Mouth/Throat, ONCE, 1 | | 19 6:04 | | | | | dose, 08/01/19 at 1315 | | PM PDT | | | | + +-------+ +---+---+---+ + +---+ | | | + +---+ | lidocaine (XYLOCAINE) 10 mg/mL | | | (1 %) injection 1 dose, Starting | | | 08/22/19 at 1124, Until Sat | | | 08/22/19 at 1130 | | + +---+ | | | + +---+ + +-------+ +---+---+---+ | lidocaine (XYLOCAINE) 10 mg/mL | Given | 08/22/20 | | | | | (1 %) injection infiltration, | | 19 12:30 | | | | | ONCE, 1 dose, 08/22/19 at 1230 | | PM PDT | | | | + +-------+ +---+---+---+ +-------+ +---+---+---+ | Given | 08/22/20 | | | | | | 19 11:30 | | | | | | AM PDT | | | | +-------+ +---+---+---+ +---+---+ | | | +---+---+ + +-------+ +-------+---+---+ | lidocaine-EPINEPHrine | Given | 08/19/20 | 25 mL | | | | (XYLOCAINE WITH EPINEPHRINE) 1 | | 19 8:31 | | | | | %-1:100,000 injection 25 mL 25 | | AM PDT | | | | | mL, infiltration, ONCE, 1 dose, | | | | | | | 08/19/19 at 0800 | | | | | | + +-------+ +-------+---+---+ +---+---+ | | | +---+---+ + +-------+ +--------+---+---+ | magnesium oxide (MAG-OX) tablet | Given | 07/23/20 | 400 mg | | | | 400 mg 400 mg, oral, ONCE, 1 | | 19 11:40 | | | | | dose, [facility] 07/23/19 at 1015 | | AM PDT | | | | + +-------+ +--------+---+---+ +---+---+ | | | +---+---+ + +-------+ +--------+---+---+ | magnesium oxide (MAG-OX) tablet | Given | 08/15/20 | 400 mg | | | | 400 mg 400 mg, oral, DAILY, | | 19 5:04 | | | | | First dose on 08/01/19 at | | PM PDT | | | | | 1630, Until Discontinued | | | | | | + +-------+ +--------+---+---+ +-------+ +--------+---+---+ | Given | 08/14/20 | 400 mg | | | | | 19 10:06 | | | | | | AM PDT | | | | +-------+ +--------+---+---+ | Given | 08/13/20 | 400 mg | | | | | 19 9:36 | | | | | | AM PDT | | | | +-------+ +--------+---+---+ +---+---+ | | | +---+---+ + +---------+ +-----+---+---+ | magnesium sulfate in water IV | New Bag | 07/18/20 | 4 g | | | | (RTU) 4 g 4 g, intravenous, | | 19 10:36 | | | | | ONCE, 1 dose, 07/18/19 at 1045 | | AM PDT | | | | + +---------+ +-----+---+---+ +---+---+ | | | +---+---+ + +-------+ +------+---+---+ | melatonin tablet 3 mg 3 mg, | Given | 08/13/20 | 3 mg | | | | oral, AT BEDTIME NEEDED, | | 19 9:19 | | | | | Starting [facility] 07/23/19 at 1532, | | PM PDT | | | | | Until 08/16/19 at 0810, | | | | | | | insomnia | | | | | | + +-------+ +------+---+---+ +-------+ +------+---+---+ | Given | 08/05/20 | 3 mg | | | | | 19 9:51 | | | | | | PM PDT | | | | +-------+ +------+---+---+ | Given | 08/05/20 | 3 mg | | | | | 19 3:05 | | | | | | AM PDT | | | | +-------+ +------+---+---+ +---+---+ | | | +---+---+ + +-------+ +--------+---+---+ | methylPREDNISolone sod succ | Given | 08/19/20 | 100 mg | | | | (PF) (SOLU-MEDROL) injection 100 | | 19 8:31 | | | | | mg 100 mg, intravenous, EVERY | | AM PDT | | | | | MORNING, 1 dose, First dose on | | | | | | | 08/19/19 at 0900 | | | | | | + +-------+ +--------+---+---+ +---+---+ | | | +---+---+ + +-------+ +--------+---+---+ | methylPREDNISolone sod succ | Given | 08/18/20 | 125 mg | | | | (PF) (SOLU-MEDROL) injection 125 | | 19 8:55 | | | | | mg 125 mg, intravenous, EVERY | | AM PDT | | | | | MORNING, 1 dose, First dose on | | | | | | | 08/18/19 at 0900 | | | | | | + +-------+ +--------+---+---+ +---+---+ | | | +---+---+ + +-------+ +-------+---+---+ | methylPREDNISolone sod succ | Given | 08/20/20 | 80 mg | | | | (PF) (SOLU-MEDROL) injection 80 | | 19 8:35 | | | | | mg 80 mg, intravenous, EVERY | | AM PDT | | | | | MORNING, 1 dose, First dose on | | | | | | | [facility] 08/20/19 at 0900 | | | | | | + +-------+ +-------+---+---+ +---+---+ | | | +---+---+ + +---------+ +--------+---+---+ | methylPREDNISolone sod succ | New Bag | 08/17/20 | 250 mg | | | | (SOLU-MEDROL) 250 mg in NaCl 0.9 | | 19 8:45 | | | | | % (NS) IV 250 mg, intravenous, | | AM PDT | | | | | EVERY MORNING, 1 dose, First dose | | | | | | | on 08/17/19 at 0900 | | | | | | + +---------+ +--------+---+---+ +---+---+ | | | +---+---+ + +-------+ +------+---+---+ | metoprolol (LOPRESSOR) | Given | 07/23/20 | 5 mg | | | | injection 2.5 mg 2.5 mg, | | 19 9:57 | | | | | intravenous, ONCE, 1 dose, [facility] | | AM PDT | | | | | 07/23/19 at 0930 | | | | | | + +-------+ +------+---+---+ +---+---+ | | | +---+---+ + +-------+ +------+---+---+ | metoprolol (LOPRESSOR) | Given | 07/23/20 | 5 mg | | | | injection 2.5-5 mg 2.5-5 mg, | | 19 10:15 | | | | | intravenous, ONCE, 1 dose, [facility] | | AM PDT | | | | | 07/23/19 at 1045 | | | | | | + +-------+ +------+---+---+ +---+---+ | | | +---+---+ + +-------+ +------+---+---+ | metoprolol (LOPRESSOR) | Given | 07/23/20 | 5 mg | | | | injection 5 mg 5 mg, | | 19 9:44 | | | | | intravenous, ONCE, 1 dose, [facility] | | AM PDT | | | | | 07/23/19 at 1015 | | | | | | + +-------+ +------+---+---+ +---+---+ | | | +---+---+ + +-------+ +---------+---+---+ | metoprolol tartrate (LOPRESSOR) | Given | 07/19/20 | 6.25 mg | | | | tablet 6.25 mg 6.25 mg, oral, | | 19 5:47 | | | | | EVERY 6 HOURS, First dose on Sun | | PM PDT | | | | | 07/19/19 at 1400, Until | | | | | | | Discontinued | | | | | | + +-------+ +---------+---+---+ +---+---+ | | | +---+---+ + +-------+ +---------+---+---+ | metoprolol tartrate (LOPRESSOR) | Given | 07/20/20 | 6.25 mg | | | | tablet 6.25 mg 6.25 mg, oral, | | 19 5:20 | | | | | EVERY 6 HOURS, First dose (after | | AM PDT | | | | | last modification) on 07/19/19 | | | | | | | at 2330, Until Discontinued | | | | | | + +-------+ +---------+---+---+ +-------+ +---------+---+---+ | Given | 07/19/20 | 6.25 mg | | | | | 19 11:12 | | | | | | PM PDT | | | | +-------+ +---------+---+---+ +---+---+ | | | +---+---+ + +-------+ +---------+---+---+ | metoprolol tartrate (LOPRESSOR) | Given | 08/15/20 | 6.25 mg | | | | tablet 6.25 mg 6.25 mg, oral, | | 19 8:18 | | | | | TWICE DAILY, First dose on [facility] | | PM PDT | | | | | 07/23/19 at 1315, Until | | | | | | | Discontinued | | | | | | + +-------+ +---------+---+---+ +-------+ +---------+---+---+ | Given | 08/15/20 | 6.25 mg | | | | | 19 10:50 | | | | | | AM PDT | | | | +-------+ +---------+---+---+ | Given | 08/14/20 | 6.25 mg | | | | | 19 10:24 | | | | | | PM PDT | | | | +-------+ +---------+---+---+ +---+---+ | | | +---+---+ + +-------+ +---------+---+---+ | metoprolol tartrate (LOPRESSOR) | Given | 08/18/20 | 6.25 mg | | | | tablet 6.25 mg 6.25 mg, feeding | | 19 8:43 | | | | | tube, TWICE DAILY, First dose on | | AM PDT | | | | | 08/16/19 at 2100, Until | | | | | | | Discontinued | | | | | | + +-------+ +---------+---+---+ +-------+ +---------+---+---+ | Given | 08/17/20 | 6.25 mg | | | | | 19 8:45 | | | | | | PM PDT | | | | +-------+ +---------+---+---+ | Given | 08/17/20 | 6.25 mg | | | | | 19 8:27 | | | | | | AM PDT | | | | +-------+ +---------+---+---+ +---+---+ | | | +---+---+ + +-------+ +---------+---+---+ | metoprolol tartrate (LOPRESSOR) | Given | 08/29/20 | 6.25 mg | | | | tablet 6.25 mg 6.25 mg, oral, | | 19 1:41 | | | | | TWICE DAILY, First dose (after | | PM PST | | | | | last modification) on Tue | | | | | | | 08/18/19 at 2100, Until | | | | | | | Discontinued | | | | | | + +-------+ +---------+---+---+ +-------+ +---------+---+---+ | Given | 08/28/20 | 6.25 mg | | | | | 19 9:19 | | | | | | PM PST | | | | +-------+ +---------+---+---+ | Given | 08/28/20 | 6.25 mg | | | | | 19 10:10 | | | | | | AM PST | | | | +-------+ +---------+---+---+ +---+---+ | | | +---+---+ + +-------+ +------+---+---+ | midazolam (PF) (VERSED) | Given | 08/26/20 | 1 mg | | | | injection 1-5 mg 1-5 mg, | | 19 8:46 | | | | | intravenous, INTRAPROCEDURE PRN, | | AM PST | | | | | 20 doses, Starting Sat08/26/19 at | | | | | | | 0820, Until Sat08/26/19 at 1100, | | | | | | | periprocedural sedation | | | | | | + +-------+ +------+---+---+ +-------+ +------+---+---+ | Given | 08/26/20 | 1 mg | | | | | 19 8:38 | | | | | | AM PST | | | | +-------+ +------+---+---+ +---+---+ | | | +---+---+ + +-------+ +-------+---+---+ | midodrine (PROAMITINE) tablet | Given | 08/15/20 | 10 mg | | | | 10 mg 10 mg, oral, THREE TIMES | | 19 10:01 | | | | | DAILY, First dose (after last | | PM PDT | | | | | modification) on 07/25/19 at | | | | | | | 1600, Until Discontinued | | | | | | + +-------+ +-------+---+---+ +-------+ +-------+---+---+ | Given | 08/15/20 | 10 mg | | | | | 5:04 | | | | | | PM PDT | | | | +-------+ +-------+---+---+ | Given | 08/15/20 | 10 mg | | | | | 19 7:53 | | | | | | AM PDT | | | | +-------+ +-------+---+---+ +---+---+ | | | +---+---+ + +-------+ +-------+---+---+ | midodrine (PROAMITINE) tablet | Given | 07/25/20 | 15 mg | | | | 15 mg 15 mg, oral, THREE TIMES | | 19 8:55 | | | | | DAILY, First dose on 07/20/19 | | AM PDT | | | | | at 1300, Until Discontinued | | | | | | + +-------+ +-------+---+---+ +-------+ +-------+---+---+ | Given | 07/24/20 | 15 mg | | | | | 19 11:06 | | | | | | PM PDT | | | | +-------+ +-------+---+---+ | Given | 07/24/20 | 15 mg | | | | | 19 6:34 | | | | | | PM PDT | | | | +-------+ +-------+---+---+ +---+---+ | | | +---+---+ + +-------+ + +---+---+ | multivitamin (THERA VITAMIN) 1 | Given | 08/14/20 | 1 tablet | | | | tablet 1 tablet, oral, DAILY, | | 19 10:06 | | | | | First dose on Sat07/31/19 at | | AM PDT | | | | | 1530, Until Discontinued | | | | | | + +-------+ + +---+---+ +-------+ + +---+---+ | Given | 08/13/20 | 1 tablet | | | | | 19 9:36 | | | | | | AM PDT | | | | +-------+ + +---+---+ | Given | 08/12/20 | 1 tablet | | | | | 19 9:08 | | | | | | AM PDT | | | | +-------+ + +---+---+ +---+---+ | | | +---+---+ + +-------+ + +---+---+ | mycophenolate (CELLCEPT) | Given | 08/29/20 | 1,000 mg | | | | capsule 1,000 mg 1,000 mg, oral, | | 19 8:11 | | | | | TWICE DAILY WITH MEALS (MMF), | | AM PST | | | | | First dose on Sat08/18/19 at | | | | | | | 1800, Until Discontinued | | | | | | + +-------+ + +---+---+ +-------+ + +---+---+ | Given | 08/28/20 | 1,000 mg | | | | | 19 6:13 | | | | | | PM PST | | | | +-------+ + +---+---+ | Given | 08/28/20 | 1,000 mg | | | | | 19 7:57 | | | | | | AM PST | | | | +-------+ + +---+---+ +---+---+ | | | +---+---+ + +---------+ + +---+---+ | mycophenolate (CELLCEPT) IV | New Bag | 08/18/20 | 1,000 mg | | | | 1,000 mg 1,000 mg, intravenous, | | 19 8:58 | | | | | TWICE DAILY, First dose on Sun | | AM PDT | | | | | 08/16/19 at 2100, Until | | | | | | | Discontinued | | | | | | + +---------+ + +---+---+ +---------+ + +---+---+ | New Bag | 08/17/20 | 1,000 mg | | | | | 19 8:45 | | | | | | PM PDT | | | | +---------+ + +---+---+ | New Bag | 08/17/20 | 1,000 mg | | | | | 19 9:48 | | | | | | AM PDT | | | | +---------+ + +---+---+ +---+---+ | | | +---+---+ + +-------+ +---------+---+---+ | octreotide (SANDOSTATIN) | Given | 07/20/20 | 100 mcg | | | | injection 100 mcg 100 mcg, | | 19 10:00 | | | | | intravenous, THREE TIMES DAILY, | | PM PDT | | | | | First dose on 07/20/19 at | | | | | | | 1300, Until Discontinued | | | | | | + +-------+ +---------+---+---+ +-------+ +---------+---+---+ | Given | 07/20/20 | 100 mcg | | | | | 19 1:45 | | | | | | PM PDT | | | | +-------+ +---------+---+---+ +---+---+ | | | +---+---+ + +-------+ +---------+---+---+ | octreotide (SANDOSTATIN) | Given | 07/22/20 | 200 mcg | | | | injection 200 mcg 200 mcg, | | 19 9:43 | | | | | intravenous, THREE TIMES DAILY, | | AM PDT | | | | | First dose (after last | | | | | | | modification) on Sat07/21/19 at | | | | | | | 0930, Until Discontinued | | | | | | + +-------+ +---------+---+---+ +-------+ +---------+---+---+ | Given | 07/21/20 | 200 mcg | | | | | 19 9:28 | | | | | | PM PDT | | | | +-------+ +---------+---+---+ | Given | 07/21/20 | 200 mcg | | | | | 19 4:16 | | | | | | PM PDT | | | | +-------+ +---------+---+---+ +---+---+ | | | +---+---+ + +-------+ +---------+---+---------+ | octreotide (SANDOSTATIN) | Given | 07/25/20 | 200 mcg | | Abdomen | | injection 200 mcg 200 mcg, | | 19 8:56 | | | | | subcutaneous, THREE TIMES DAILY, | | AM PDT | | | | | First dose (after last | | | | | | | modification) on Sat07/22/19 at | | | | | | | 1600, Until Discontinued | | | | | | + +-------+ +---------+---+---------+ +-------+ +---------+---+---------+ | Given | 07/24/20 | 200 mcg | | Abdomen | | | 19 11:07 | | | | | | PM PDT | | | | +-------+ +---------+---+---------+ | Given | 07/24/20 | 200 mcg | | Abdomen | | | 19 6:36 | | | | | | PM PDT | | | | +-------+ +---------+---+---------+ +---+---+ | | | +---+---+ + +-------+ +-------+---+---+ | omeprazole (PRILOSEC) capsule | Given | 08/29/20 | 20 mg | | | | 20 mg 20 mg, oral, BEFORE | | 19 5:57 | | | | | BREAKFAST, First dose on Sat | | AM PST | | | | | 08/19/19 at 0630, Until | | | | | | | Discontinued | | | | | | + +-------+ +-------+---+---+ +-------+ +-------+---+---+ | Given | 08/28/20 | 20 mg | | | | | 19 6:13 | | | | | | AM PST | | | | +-------+ +-------+---+---+ | Given | 08/27/20 | 20 mg | | | | | 19 5:38 | | | | | | AM PST | | | | +-------+ +-------+---+---+ +---+---+ | | | +---+---+ + +-------+ +-------+---+---+ | omeprazole (PRILOSEC) oral | Given | 08/18/20 | 20 mg | | | | suspension (compound) 20 mg 20 | | 19 6:22 | | | | | mg, feeding tube, BEFORE | | AM PDT | | | | | BREAKFAST, First dose on Mon | | | | | | | 08/17/19 at 0630, Until | | | | | | | Discontinued | | | | | | + +-------+ +-------+---+---+ +-------+ +-------+---+---+ | Given | 08/17/20 | 20 mg | | | | | 19 5:37 | | | | | | AM PDT | | | | +-------+ +-------+---+---+ +---+---+ | | | +---+---+ + +-------+ +------+---+---+ | ondansetron (ZOFRAN) tablet 4 | Given | 08/05/20 | 4 mg | | | | mg 4 mg, oral, EVERY 8 HOURS | | 19 2:45 | | | | | NEEDED, Starting 08/05/19 at | | AM PDT | | | | | 0233, Until 08/16/19 at 0810, | | | | | | | nausea/vomiting, first line | | | | | | + +-------+ +------+---+---+ +---+---+ | | | +---+---+ + +-------+ +--------+---+---+ | oxyCODONE (immediate release) | Given | 08/16/20 | 2.5 mg | | | | (ROXICODONE) tablet 2.5-5 mg | | 19 3:41 | | | | | 2.5-5 mg, feeding tube, EVERY 4 | | PM PDT | | | | | HOURS NEEDED, Starting Sun | | | | | | | 08/16/19 at 1414, Until Tue | | | | | | | 08/18/19 at 1421, moderate pain | | | | | | + +-------+ +--------+---+---+ +-------+ +--------+---+---+ | Given | 08/16/20 | 2.5 mg | | | | | 19 2:33 | | | | | | PM PDT | | | | +-------+ +--------+---+---+ +---+---+ | | | +---+---+ + +-------+ +--------+---+---+ | oxyCODONE (immediate release) | Given | 08/28/20 | 2.5 mg | | | | (ROXICODONE) tablet 2.5-5 mg | | 19 11:14 | | | | | 2.5-5 mg, oral, EVERY 4 HOURS | | PM PST | | | | | NEEDED, Starting 08/18/19 at | | | | | | | 1420, Until 08/29/19 at 2312, | | | | | | | moderate pain | | | | | | + +-------+ +--------+---+---+ +-------+ +--------+---+---+ | Given | 08/27/20 | 2.5 mg | | | | | 19 9:21 | | | | | | PM PST | | | | +-------+ +--------+---+---+ | Given | 08/26/20 | 2.5 mg | | | | | 19 10:40 | | | | | | PM PST | | | | +-------+ +--------+---+---+ +---+---+ | | | +---+---+ + + + + +--------+---+ | PHENYLEPHrine 25 mg/250 mL (0.1 | Rate/Dos | 08/16/20 | 0.4 | 23.57 | | | mg/mL) IV infusion (ADC) 0.1-2 | e Change | 19 10:36 | mcg/kg/m | mL/hr | | | mcg/kg/min | | AM PDT | in | | | | 98.2 kg (5.892-117.84 mL/hr, | | | | | | | rounded to 5.89-117.84 mL/hr), | | | | | | | intravenous, CONTINUOUS, Starting | | | | | | | 08/16/19 at 0915, Until Sun | | | | | | | 08/16/19 at 1226 | | | | | | + + + + +--------+---+ + + + +--------+---+ | Rate/Dose Verify | 08/16/20 | 0.6 | 35.35 | | | | 19 10:00 | mcg/kg/m | mL/hr | | | | AM PDT | in | | | + + + +--------+---+ | Rate/Dose Change | 08/16/20 | 0.6 | 35.35 | | | | 19 9:20 | mcg/kg/m | mL/hr | | | | AM PDT | in | | | + + + +--------+---+ +---+---+ | | | +---+---+ + +---------+ +---------+---+---+ | piperacillin-tazobactam (ZOSYN) | New Bag | 07/20/20 | 3.375 g | | | | IV (minibag+) 3.375 g 3.375 g, | | 19 5:20 | | | | | intravenous, EVERY 8 HOURS, First | | AM PDT | | | | | dose on 07/18/19 at 0600, | | | | | | | Until Discontinued | | | | | | + +---------+ +---------+---+---+ +---------+ +---------+---+---+ | New Bag | 07/19/20 | 3.375 g | | | | | 19 10:34 | | | | | | PM PDT | | | | +---------+ +---------+---+---+ | New Bag | 07/19/20 | 3.375 g | | | | | 19 1:58 | | | | | | PM PDT | | | | +---------+ +---------+---+---+ +---+---+ | | | +---+---+ + +---------+ +-------+-------+---+ | piperacillin-tazobactam (ZOSYN) | New Bag | 07/17/20 | 4.5 g | 200 | | | IV (minibag+) 4.5 g 4.5 g, | | 19 11:50 | | mL/hr | | | intravenous, ONCE, 1 dose, Fri | | PM PDT | | | | | 07/17/19 at 2300 | | | | | | + +---------+ +-------+-------+---+ +---+---+ | | | +---+---+ + +-------+ +------+---+---+ | polyethylene glycol (MIRALAX) | Given | 08/20/20 | 17 g | | | | packet 17 g 17 g, oral, DAILY, | | 19 8:35 | | | | | First dose on [facility] 08/20/19 at | | AM PDT | | | | | 0900, Until Discontinued | | | | | | + +-------+ +------+---+---+ + +---+ | | | + +---+ | polyethylene glycol (MIRALAX) | | | packet 34 g 34 g, oral, THREE | | | TIMES DAILY NEEDED, Starting | | | 08/17/19 at 1023, Until Sat | | | 08/29/19 at 2312, 1st line - for | | | no BM for 2 days | | + +---+ | | | + +---+ + +-------+ +--------+---+---+ | potassium chloride (KLOR-CON) | Given | 07/23/20 | 40 mEq | | | | packet 40 mEq 40 mEq, oral, | | 19 11:40 | | | | | ONCE, 1 dose, [facility] 07/23/19 at 1015 | | AM PDT | | | | + +-------+ +--------+---+---+ +---+---+ | | | +---+---+ + +---------+ +--------+---+---+ | potassium chloride in water IV | New Bag | 08/16/20 | 20 mEq | | | | (CENTRAL LINE-ICU) 20 mEq 20 | | 19 11:11 | | | | | mEq, intravenous, ONCE, 1 dose, | | AM PDT | | | | | 08/16/19 at 1100 | | | | | | + +---------+ +--------+---+---+ +---+---+ | | | +---+---+ + +-------+ +--------+---+---+ | potassium chloride SR (K-DUR) | Given | 07/20/20 | 20 mEq | | | | tablet 20 mEq 20 mEq, oral, | | 19 9:27 | | | | | ONCE, 1 dose, 07/20/19 at 0645 | | AM PDT | | | | + +-------+ +--------+---+---+ +---+---+ | | | +---+---+ + +-------+ +--------+---+---+ | potassium chloride SR (K-DUR) | Given | 07/22/20 | 40 mEq | | | | tablet 40 mEq 40 mEq, oral, | | 19 6:34 | | | | | ONCE, 1 dose, 07/22/19 at 0645 | | AM PDT | | | | + +-------+ +--------+---+---+ +---+---+ | | | +---+---+ + +-------+ + +---+---+ | potassium, sodium phosphates | Given | 07/18/20 | 1 packet | | | | (NEUTRA-PHOS, PHOS-NAK) | | 19 1:13 | | | | | 280-160-250 mg packet 1 packet 1 | | PM PDT | | | | | packet, oral, EVERY 2 HOURS, 2 | | | | | | | doses, First dose (after last | | | | | | | modification) on 07/18/19 at | | | | | | | 1100, Last dose on 07/18/19 at | | | | | | | 1300 | | | | | | + +-------+ + +---+---+ +-------+ + +---+---+ | Given | 07/18/20 | 1 packet | | | | | 19 11:30 | | | | | | AM PDT | | | | +-------+ + +---+---+ + +---+ | | | + +---+ | predniSONE (DELTASONE) tablet | | | 15 mg 15 mg, oral, DAILY, First | | | dose on 08/31/19 at 0900, | | | Until Discontinued | | + +---+ | | | + +---+ + +-------+ +-------+---+---+ | predniSONE (DELTASONE) tablet | Given | 08/26/20 | 20 mg | | | | 20 mg 20 mg, oral, DAILY, First | | 19 11:38 | | | | | dose on Sat08/24/19 at 0900, | | AM PST | | | | | Until Discontinued | | | | | | + +-------+ +-------+---+---+ +-------+ +-------+---+---+ | Given | 08/25/20 | 20 mg | | | | | 19 7:54 | | | | | | AM PST | | | | +-------+ +-------+---+---+ | Given | 08/24/20 | 20 mg | | | | | 19 8:28 | | | | | | AM PST | | | | +-------+ +-------+---+---+ +---+---+ | | | +---+---+ + +-------+ +-------+---+---+ | predniSONE (DELTASONE) tablet | Given | 08/29/20 | 20 mg | | | | 20 mg 20 mg, oral, DAILY, 4 | | 19 1:41 | | | | | doses, First dose (after last | | PM PST | | | | | modification) on [facility] 08/27/19 at | | | | | | | 0900, Last dose on 08/30/19 | | | | | | | at 0900 | | | | | | + +-------+ +-------+---+---+ +-------+ +-------+---+---+ | Given | 08/28/20 | 20 mg | | | | | 19 7:57 | | | | | | AM PST | | | | +-------+ +-------+---+---+ | Given | 08/27/20 | 20 mg | | | | | 19 7:39 | | | | | | AM PST | | | | +-------+ +-------+---+---+ +---+---+ | | | +---+---+ + +-------+ +-------+---+---+ | predniSONE (DELTASONE) tablet | Given | 08/23/20 | 30 mg | | | | 30 mg 30 mg, oral, DAILY, 1 | | 8:26 | | | | | dose, First dose on 08/23/19 | | AM PST | | | | | at 0900 | | | | | | + +-------+ +-------+---+---+ +---+---+ | | | +---+---+ + +-------+ +-------+---+---+ | predniSONE (DELTASONE) tablet | Given | 08/22/20 | 40 mg | | | | 40 mg 40 mg, oral, DAILY, | | 9:45 | | | | | dose, First dose on 08/22/19 | | AM PDT | | | | | at 0900 | | | | | | + +-------+ +-------+---+---+ +---+---+ | | | +---+---+ + +-------+ +-------+---+---+ | predniSONE (DELTASONE) tablet | Given | 08/21/20 | 60 mg | | | | 60 mg 60 mg, oral, DAILY, 1 | | 19 9:04 | | | | | dose, First dose on Sat08/21/19 | | AM PDT | | | | | at 0900 | | | | | | + +-------+ +-------+---+---+ +---+---+ | | | +---+---+ + + + +---+---+---+ | probiotic kefir (MAGEN'S KEFIR) | Given - | 08/24/20 | | | | | oral, TWICE DAILY, First dose | Food | 19 7:34 | | | | | on Sat08/20/19 at 1215, Until | | AM PST | | | | | Discontinued | | | | | | + + + +---+---+---+ + + +---+---+---+ | Given - Food | 08/22/20 | | | | | | 19 10:05 | | | | | | PM PDT | | | | + + +---+---+---+ | Given - Food | 08/21/20 | | | | | | 19 10:38 | | | | | | PM PDT | | | | + + +---+---+---+ +---+---+ | | | +---+---+ + + + +---+---+---+ | probiotic yogurt (MAGEN'S | Given - | 08/29/20 | | | | | YOGURT) oral, DAILY, First dose | Food | 19 1:42 | | | | | on Sat08/26/19 at 1315, Until | | PM PST | | | | | Discontinued | | | | | | + + + +---+---+---+ + + +---+---+---+ | Given - Food | 08/28/20 | | | | | | 19 10:10 | | | | | | AM PST | | | | + + +---+---+---+ | Given - Food | 08/26/20 | | | | | | 19 12:25 | | | | | | PM PST | | | | + + +---+---+---+ +---+---+ | | | +---+---+ + + + + +-------+---+ | propofol (DIPRIVAN) injection | Rate/Dos | 08/16/20 | 10 | 5.89 | | | 0.5-50 mcg/kg/min | e Change | 19 11:11 | mcg/kg/m | mL/hr | | | 98.2 kg (0.2946-29.46 mL/hr, | | AM PDT | in | | | | rounded to 0.29-29.46 mL/hr), | | | | | | | intravenous, CONTINUOUS, Starting | | | | | | | 08/16/19 at 0915, Until Sun | | | | | | | 08/16/19 at 1226 | | | | | | + + + + +-------+---+ + + + +-------+---+ | Rate/Dose Change | 08/16/20 | 15 | 8.84 | | | | 19 11:00 | mcg/kg/m | mL/hr | | | | AM PDT | in | | | + + + +-------+---+ | Rate/Dose Change | 08/16/20 | 10 | 5.89 | | | | 19 10:36 | mcg/kg/m | mL/hr | | | | AM PDT | in | | | + + + +-------+---+ +---+---+ | | | +---+---+ + +-------+ +---------+---+---+ | QUEtiapine (SEROQUEL) tablet | Given | 08/28/20 | 12.5 mg | | | | 12.5 mg 12.5 mg, oral, AT | | 19 9:19 | | | | | BEDTIME, First dose (after last | | PM PST | | | | | modification) on [facility] 08/27/19 at | | | | | | | 2200, Until Discontinued | | | | | | + +-------+ +---------+---+---+ +-------+ +---------+---+---+ | Given | 08/27/20 | 12.5 mg | | | | | 19 8:54 | | | | | | PM PST | | | | +-------+ +---------+---+---+ +---+---+ | | | +---+---+ + +-------+ +-------+---+---+ | QUEtiapine (SEROQUEL) tablet 25 | Given | 08/26/20 | 25 mg | | | | mg 25 mg, oral, AT BEDTIME, | | 19 9:37 | | | | | First dose on Sat08/18/19 at | | PM PST | | | | | 2200, Until Discontinued | | | | | | + +-------+ +-------+---+---+ +-------+ +-------+---+---+ | Given | 08/25/20 | 25 mg | | | | | 19 9:32 | | | | | | PM PST | | | | +-------+ +-------+---+---+ | Given | 08/24/20 | 25 mg | | | | | 19 9:25 | | | | | | PM PST | | | | +-------+ +-------+---+---+ +---+---+ | | | +---+---+ + +-------+ +-------+---+---+ | QUEtiapine (SEROQUEL) tablet 25 | Given | 08/18/20 | 25 mg | | | | mg 25 mg, oral, AT BEDTIME | | 19 9:14 | | | | | NEEDED, Starting Sat08/18/19 at | | PM PDT | | | | | 0823, Until 08/29/19 at 2312, | | | | | | | insomnia | | | | | | + +-------+ +-------+---+---+ +---+---+ | | | +---+---+ + +-------+ +--------+---+---+ | rifAXIMin (XIFAXAN) tablet 550 | Given | 08/15/20 | 550 mg | | | | mg 550 mg, oral, TWICE DAILY, | | 19 8:18 | | | | | First dose on 07/18/19 at | | PM PDT | | | | | 1245, Until Discontinued | | | | | | + +-------+ +--------+---+---+ +-------+ +--------+---+---+ | Given | 08/15/20 | 550 mg | | | | | 19 10:50 | | | | | | AM PDT | | | | +-------+ +--------+---+---+ | Given | 08/14/20 | 550 mg | | | | | 19 10:25 | | | | | | PM PDT | | | | +-------+ +--------+---+---+ +---+---+ | | | +---+---+ + +-------+ + +---+---+ | senna-docusate (SENOKOT S) | Given | 08/28/20 | 1 tablet | | | | 8.6-50 mg 1 tablet 1 tablet, | | 19 9:19 | | | | | oral, TWICE DAILY, First dose on | | PM PST | | | | | 08/17/19 at 2100, Until | | | | | | | Discontinued | | | | | | + +-------+ + +---+---+ +-------+ + +---+---+ | Given | 08/27/20 | 1 tablet | | | | | 19 7:39 | | | | | | AM PST | | | | +-------+ + +---+---+ | Given | 08/26/20 | 1 tablet | | | | | 19 9:37 | | | | | | PM PST | | | | +-------+ + +---+---+ +---+---+ | | | +---+---+ + +-------+ +------+---+---+ | sulfur hexafluoride | Given | 07/18/20 | 5 mL | | | | microspheres (LUMASON) IV 1-2 mL | | 19 2:05 | | | | | 1-2 mL, intravenous, ONCE, 1 | | PM PDT | | | | | dose, 07/18/19 at 1845 | | | | | | + +-------+ +------+---+---+ +---+---+ | | | +---+---+ + +-------+ +------+---+---+ | tacrolimus 0.5 mg/mL suspension | Given | 08/17/20 | 1 mg | | | | (compound) 1 mg 1 mg, feeding | | 19 8:38 | | | | | tube, TWICE DAILY | | AM PDT | | | | | (CSATACROLIMUS), First dose on | | | | | | | 08/16/19 at 1800, Until | | | | | | | Discontinued | | | | | | + +-------+ +------+---+---+ +-------+ +------+---+---+ | Given | 08/16/20 | 1 mg | | | | | 19 6:16 | | | | | | PM PDT | | | | +-------+ +------+---+---+ +---+---+ | | | +---+---+ + +-------+ +------+---+---+ | tacrolimus 0.5 mg/mL suspension | Given | 08/18/20 | 2 mg | | | | (compound) 2 mg 2 mg, feeding | | 19 8:44 | | | | | tube, TWICE DAILY | | AM PDT | | | | | (CSATACROLIMUS), First dose | | | | | | | (after last modification) on Mon | | | | | | | 08/17/19 at 1800, Until | | | | | | | Discontinued | | | | | | + +-------+ +------+---+---+ +-------+ +------+---+---+ | Given | 08/17/20 | 2 mg | | | | | 19 6:17 | | | | | | PM PDT | | | | +-------+ +------+---+---+ +---+---+ | | | +---+---+ + +-------+ +------+---+---+ | tacrolimus capsule 4 mg 4 mg, | Given | 08/19/20 | 4 mg | | | | oral, TWICE DAILY | | 19 8:28 | | | | | (CSATACROLIMUS), First dose on | | AM PDT | | | | | 08/18/19 at 1800, Until | | | | | | | Discontinued | | | | | | + +-------+ +------+---+---+ +-------+ +------+---+---+ | Given | 08/18/20 | 4 mg | | | | | 19 6:14 | | | | | | PM PDT | | | | +-------+ +------+---+---+ +---+---+ | | | +---+---+ + +-------+ +------+---+---+ | tacrolimus capsule 4 mg 4 mg, | Given | 08/29/20 | 4 mg | | | | oral, TWICE DAILY | | 19 8:12 | | | | | (CSATACROLIMUS), First dose | | AM PST | | | | | (after last modification) on Sun | | | | | | | 08/23/19 at 0800, Until | | | | | | | Discontinued | | | | | | + +-------+ +------+---+---+ +-------+ +------+---+---+ | Given | 08/28/20 | 4 mg | | | | | 19 6:13 | | | | | | PM PST | | | | +-------+ +------+---+---+ | Given | 08/28/20 | 4 mg | | | | | 19 7:58 | | | | | | AM PST | | | | +-------+ +------+---+---+ +---+---+ | | | +---+---+ + +-------+ +------+---+---+ | tacrolimus capsule 5 mg 5 mg, | Given | 08/22/20 | 5 mg | | | | oral, TWICE DAILY | | 19 8:14 | | | | | (CSATACROLIMUS), First dose | | AM PDT | | | | | (after last modification) on Sat | | | | | | | 08/19/19 at 1800, Until | | | | | | | Discontinued | | | | | | + +-------+ +------+---+---+ +-------+ +------+---+---+ | Given | 08/21/20 | 5 mg | | | | | 19 6:27 | | | | | | PM PDT | | | | +-------+ +------+---+---+ | Given | 08/21/20 | 5 mg | | | | | 19 9:04 | | | | | | AM PDT | | | | +-------+ +------+---+---+ +---+---+ | | | +---+---+ + +-------+ +--------+---+---+ | tamsulosin (FLOMAX) capsule 0.4 | Given | 08/29/20 | 0.4 mg | | | | mg 0.4 mg, oral, DAILY, First | | 19 1:42 | | | | | dose on Sat08/17/19 at 0900, | | PM PST | | | | | Until Discontinued | | | | | | + +-------+ +--------+---+---+ +-------+ +--------+---+---+ | Given | 08/28/20 | 0.4 mg | | | | | 19 7:57 | | | | | | AM PST | | | | +-------+ +--------+---+---+ | Given | 08/27/20 | 0.4 mg | | | | | 19 7:39 | | | | | | AM PST | | | | +-------+ +--------+---+---+ +---+---+ | | | +---+---+ + +-------+ + +---+---+ | trimethoprim-sulfamethoxazole | Given | 08/19/20 | 1 tablet | | | | (BACTRIM, SEPTRA) 80-400 mg 1 | | 19 8:31 | | | | | tablet 1 tablet, oral, DAILY, | | AM PDT | | | | | First dose on 08/17/19 at | | | | | | | 0900, Until Discontinued | | | | | | + +-------+ + +---+---+ +-------+ + +---+---+ | Given | 08/18/20 | 1 tablet | | | | | 19 8:42 | | | | | | AM PDT | | | | +-------+ + +---+---+ | Given | 08/17/20 | 1 tablet | | | | | 19 8:27 | | | | | | AM PDT | | | | +-------+ + +---+---+ +---+---+ | | | +---+---+ + +-------+ + +---+---+ | trimethoprim-sulfamethoxazole | Given | 08/24/20 | 1 tablet | | | | (BACTRIM, SEPTRA) 80-400 mg 1 | | 19 8:28 | | | | | tablet 1 tablet, oral, EVERY | | AM PST | | | | | MO-WE-FR (Once per day on Sat | | | | | | | Sat), First dose (after last | | | | | | | modification) on Sat08/21/19 at | | | | | | | 0900, Until Discontinued | | | | | | + +-------+ + +---+---+ +-------+ + +---+---+ | Given | 08/21/20 | 1 tablet | | | | | 19 9:04 | | | | | | AM PDT | | | | +-------+ + +---+---+ +---+---+ | | | +---+---+ + +-------+ + +---+---+ | trimethoprim-sulfamethoxazole | Given | 08/29/20 | 1 tablet | | | | (BACTRIM, SEPTRA) 80-400 mg 1 | | 1:41 | | | | | tablet 1 tablet, oral, EVERY | | PM PST | | | | | (Once per day on Sat | | | | | | | Sat), First dose (after last | | | | | | | modification) on Sat08/25/19 at | | | | | | | 1500, Until Discontinued | | | | | | + +-------+ + +---+---+ +-------+ + +---+---+ | Given | 08/27/20 | 1 tablet | | | | | 19 3:46 | | | | | | PM PST | | | | +-------+ + +---+---+ | Given | 08/25/20 | 1 tablet | | | | | 19 2:32 | | | | | | PM PST | | | | +-------+ + +---+---+ +---+---+ | | | +---+---+ + +-------+ +--------+---+---+ | valGANciclovir (VALCYTE) tablet | Given | 08/25/20 | 450 mg | | | | 450 mg 450 mg, oral, DAILY, | | 19 7:54 | | | | | First dose on Sat08/19/19 at | | AM PST | | | | | 0900, Until Discontinued | | | | | | + +-------+ +--------+---+---+ +-------+ +--------+---+---+ | Given | 08/24/20 | 450 mg | | | | | 19 8:28 | | | | | | AM PST | | | | +-------+ +--------+---+---+ | Given | 08/23/20 | 450 mg | | | | | 19 8:25 | | | | | | AM PST | | | | +-------+ +--------+---+---+ +---+---+ | | | +---+---+ + +-------+ +--------+---+---+ | valGANciclovir (VALCYTE) tablet | Given | 08/29/20 | 450 mg | | | | 450 mg 450 mg, oral, EVERY | | 19 1:42 | | | | | (Once per day on Sat | | PM PST | | | | | Sat), First dose (after last | | | | | | | modification) on Sat19 at | | | | | | | 1500, Until Discontinued | | | | | | + +-------+ +--------+---+---+ +-------+ +--------+---+---+ | Given | 08/27/20 | 450 mg | | | | | 19 3:46 | | | | | | PM PST | | | | +-------+ +--------+---+---+ +---+---+ | | | +---+---+ + +---------+ + +---+---+ | vancomycin (VANCOCIN) IV 1,000 | New Bag | 07/18/20 | 1,000 mg | | | | mg 1,000 mg, intravenous, EVERY | | 19 11:19 | | | | | 12 HOURS, First dose on Sat | | PM PDT | | | | | 07/17/19 at 2330, Until | | | | | | | Discontinued | | | | | | + +---------+ + +---+---+ +---------+ + +-------+---+ | New Bag | 07/18/20 | 1,000 mg | | | | | 19 12:26 | | | | | | PM PDT | | | | +---------+ + +-------+---+ | New Bag | 07/18/20 | 1,000 mg | 250 | | | | 19 12:09 | | mL/hr | | | | AM PDT | | | | +---------+ + +-------+---+ +---+---+ | | | +---+---+ + + + + + +---+ | vasopressin 20 Units/100 mL | Rate/Dos | 08/16/20 | 3 | 15 mL/hr | | | (0.2 Unit/mL) in NS IV infusion | e Verify | 19 11:00 | Units/hr | | | | (RTU) 1-4 Units/hr (5-20 mL/hr), | | AM PDT | | | | | intravenous, CONTINUOUS, | | | | | | | Starting 08/16/19 at 0915, | | | | | | | Until 08/16/19 at 1226 | | | | | | + + + + + +---+ + + + + +---+ | Rate/Dose Verify | 08/16/20 | 3 | 15 mL/hr | | | | 19 10:00 | Units/hr | | | | | AM PDT | | | | + + + + +---+ | Rate/Dose Verify | 08/16/20 | 3 | 15 mL/hr | | | | 19 9:00 | Units/hr | | | | | AM PDT | | | | + + + + +---+ +---+---+ | | | +---+---+ + +-------+ + +---+---+ | zinc sulfate (ORAZINC, | Given | 08/07/20 | 50 mg | | | | ZINC-220) capsule 50 mg elemental | | 19 8:34 | elementa | | | | 50 mg elemental (220 mg total | | AM PDT | l | | | | salt), oral, DAILY, 15 doses, | | | | | | | First dose on Sat07/24/19 at | | | | | | | 1415, Last dose on Sat08/07/19 | | | | | | | at 0900 | | | | | | + +-------+ + +---+---+ +-------+ + +---+---+ | Given | 10/17/20 | 50 mg | | | | | 19 8:02 | elementa | | | | | AM PDT | l | | | +-------+ + +---+---+ | Given | 10/16/20 | 50 mg | | | | | 19 9:43 | elementa | | | | | AM PDT | l | | | +-------+ + +---+---+ +---+---+ | | | +---+---+ documented in this encounter
--- OUTSIDE RECORDS SUMMARY | ~2020-07-29 | XMS | Encounter Summary ---
Demographics + + + | Address | [address] | | | [place] [address] | + + + | Home Phone [...] Author + + + | Author | [facility] | + + + | Organization | [facility] | + + + | [...] [place] | | | | | [address] | | + + + + + Care Team Providers + +------+ + | Care Backup Sawyer Name | Role | Phone | + +------+ + | Sharon David MD | PCP | | + +------+ + Encounter Details +--------+ + + + + | Date | Type | Department | Care Team | Description | +--------+ + + + + | 03/09/ | MyChart | Nephrology & | Alicia Canchola, | RE: Steffen Duran | | 2019 | Encounter | Hypert[facility] at [facility] | DO [address] | | | | | [address] | [address] | | | | | [facility] | [place], [place] | | | | | [address] | [address] | | | | | [place], [place] | [phone] | | | | | [address] | | | | | | [phone] | | | +--------+ + + + [...] | | 2019 | [place] | | [address] | | | | | | [address] | | | | | | [place], [place] | | | | | | [address] | | | | | | [phone] | | | | | | | | +--------+ + + + + | 09/27/ | Telephone-S | Liver Transplant | Vimal Crowe MD | | | 2019 | [place] | | [address] | | | | | | [address], | | | | | | [place] [address] | | | | | | [phone] | | | | | | | [...] [address] | | | | | | [place], [place] | | | | | | [address] | | | | | | [phone] | | | | | | | | +--------+ + + + + documented as of this encounter Visit Diagnoses Not on filedocumented in this encounter"
--- OUTSIDE RECORDS SUMMARY | ~2020-07-29 | XMS | Encounter Summary ---
Demographics + + + | Address | [address] | | | [place] [address] | + + + | Home Phone [...] Author + + + | Author | [facility] | + + + | Organization | [facility] | + + + | Address | Unknown | + + + | Phone | Unavailable | + + + Support + + + + + | Name | Relationship | Address | Phone | + + + + + | Doreen Manley | ECON | [address] | | | | | [place] | | | | | [address] | | + + + + + Care Team Providers + +------+ + | Care Newspaper Managing Editor Name | Role | Phone | + +------+ + | Sharon David MD | PCP | | + +------+ + Encounter Details +--------+ + + + + | Date | Type | Department | Care Team | Description | +--------+ + + + + | 07/19/ | Pharmacy | [facility] | | | | 2020 | Visit | [address] | | | [address] | | | | | | [place] [address] | | | | | | [phone] | | | +--------+ + + + [...] [place] | | | | | | [address] | | | | | | [phone] | | | | | | | | +--------+ + + + + | 09/27/ | Telephone-S | Liver Transplant | Vimal Crowe MD | | | 2019 | c[facility] | | [address] | | | | | | [address], | | | | | | [place] [address] | | | | | | [phone] | | | | | | | [...] Rd | | | | | | [place] | | | | | | [address] | | | | | | [phone] | | | | | | | | +--------+ + + + + documented as of this encounter Visit Diagnoses Not on filedocumented in this encounter"
--- OUTSIDE RECORDS SUMMARY | ~2020-07-29 | XMS | Encounter Summary ---
Demographics + + + | Address | [address] | | | [place] [address] | + + + | Home Phone [...] + + + | Author | [facility] | + + + | Organization | [facility] | + + + | [...] [place] | | | | | [address] | | + + + + + Care Team Providers + +------+ + | Care Assistant Account Executive Name | Role | Phone | + +------+ + | Sharon David MD | PCP | | + +------+ + Reason for Visit + +--------+ + | Reason | Onset | Comments | | | Date | | + +--------+ + | [facility] Listing | 07/09/ | | | | 2018 | | + +--------+ + Encounter Details +--------+ + + + + | Date | Type | Department | Care Team | Description | +--------+ + + + + | 07/09/ | Telephone | Clinical | Haley Fernández, | Flory Listing | | 2019 | | Transplant Services | RN [address] | | | | | [address] | [address] | | | | | [place], | [place], [place] | | | | | [place] [address] | [address] | | | | | [phone] | | | +--------+ + + + [...] this encounter Miscellaneous Notes Telephone Encounter - Horace Prado - 07/16/2019 2:25 PM PDTReviewed with patient the follow ing: Be reachable: have your cell phone with you and on at all times. Make sure your cell phone voicemail is set up and you know how to retrieve your voice mails. If you should be separate d from your cell phone for any period of time, check your messages and return any calls to O SANCHEZ immediately. Let the office know if you are going out of town, Notify of changes in address, phone number, PCP, or sales representative raw fibers. Notify us of any changes to your social support or housing situations. Keep your labs up to date. Having current labs ensures your MELD score is up-to-date and yo u won't miss opportunities for transplant. The letter I will be mailing to you will provide more information about this. Also, let us know if the lab you prefer to use has changed. Stay insured: if your insurance changes, you must call the transplant office with the updat ed information. Reviewed current address, phone #'s, preferred lab, sales representative raw fibers, PCP, and insurance and re quested they inform us of any changes. Patient's sister zach 07-16-19 -mj elephone Encounter - Haley Fernánedz RN - 07/16/2019 1:44 PM PDTLIVER TRANSPLANT LISTING FORM Date Listed: 07/16/2019 ABO: A Patient/ sister Doreen notified of being placed on the liver transplant waitlist and when ne xt labs are due based on MELD score (weekly labs based on bio MELD 34); verified SSN; all qu estions answered. Patient was tentatively approved at Liver Transplant Committee Review on after being initially deferred on 04/30/19 with recommendations to complete prior to l isting which have all been done. Please see Committee Review Decision notes dated 06/18/19 and 07/09/19 and Committee Review Recommendations note dated 07/16/19 for details. Listing let ters/notifications will be sent. See interim and health maintenance checkists for follow-up testing due dates. Follow-up appointment is scheduled with Dr. Crowe on 08/04/19. MELD score: 34 Status 1: No Referring MD: Vimal Crowe [address] [place] [address] [place] [address] Program Donor Standards Accept a liver for other methods of hepatic support: No Accept a Segmental Liver: Yes Preliminary Crossmatch Required: No Donor Age Range: 5-75 Weight range: 18-200 kg DCD: Yes local and import HBcAb: yes Accept HBV DUARTE positive donor: NO HCV Ab pos: Yes, per program policy for all patients Accept HCV DUARTE positive: Only if HCV RNA pos and has not completed HCV treatment Travel: 3000 miles Cross Match: no Accept an Incompatible blood Type: No (Yes if MELD => 30- review with surgeon) Accept an A2 Donor: No (Yes for blood types 0 and B if MELD =>30) LIT: Anti A titer ordered: No (Do If MELD =>30, and blood group 0 or B) (If Yes, put note on [facility] that it is Ordered & PENDING) 24 hr Contact #: [phone] Vital data verified: Haley Fernández RN, BSN Liver Hydraulic Modeling Engineer [facility] [place] [facility] [place] [address] Checked by: Porsche Perdomo RN TRANSPLANT COORDINATORS [address] [place] [address], [place] [address] Pre [facility] 1. Enter Listing labs in Epic (sent to [facility] by email labs dated 07/16/19, ABO #2 is in [facility] dated 07/17/18) 2. Listing letter/notifications to be sent 3. Listing information talk to be done with patient elephone Encounter - Haley Fernández RN - 07/16/2019 9:46 AM PDTCalled [facility] for [facility] - patient w ent in yesterday for blood draw but CMP and INR were not drawn (other standing lab orders we re done). I faxed a new standing lab order to Ina at [facility] per her request, and she verified re ceipt and will enter the orders to be run STAT for today. Spoke with Donell's sister, Doreen, to explain he has to go back to the lab today for the STAT blood draw in order to be listed today. She will julia Donell and arrange transportation for him. Will list as soon as results available.Electronically signed by Haley Fernández RN at 9:52 AM PDTTelephone Encounter - Haley Fernández RN - 07/14/2019 12:04 PM PDTHav e insurance auth to list per Pre A-K [facility]. I contacted his sister, Doreen, (primary support) a cesar explained current labs are needed for listing as required by [facility]. Faxed orders to [facility] (CMP and INR needed, 2 A[address]) and Doreen will tell georgette im to go to the lab for the blood draw. Lab phone [phone] Lab Will list when results available. Electronically signed by Haley Fernández RN at 019 12:10 PM PDTTelephone Encounter - Haley Fernández RN - 07/09/2019 4:17 PM PDTTom was tentatively approved for listing for liver transplant at Committee Review on 07/09/19 after being initially deferred on 04/30/19 with recommendations to complete, which have now been do ne. MELD 34 Diagnosis: Acute Alcoholic Hepatitis with likely underlying alcoholic cirrhosis Routing to the [facility] to submit URGENT request for insurance auth to list. documented in this encounter Plan of Treatment +--------+ + + + + | Date | Type | Specialty | Care Team | Description | +--------+ + + + + | 08/08/ | Telephone-S | Nephrology | Angélica Chao, | | | 2019 | ches[place] | | [address] | | | | | | [address] | | | | | | [place], [place] | | | | | | [address] | | | | | | [phone] | | | | | | | | +--------+ + + + + | 09/27/ | Telephone-S | Liver Transplant | Vimal Crowe MD | | | 2019 | [place] | | [address] | | | | | | [address], | | | | | | [place] [address] | | | | | | [phone] | | | | | | | [...] Rd | | | | | | [place], [place] | | | | | | [address] | | | | | | [phone] | | | | | | | | +--------+ + + + + documented as of this encounter Visit Diagnoses Not on filedocumented in this encounter"
--- OUTSIDE RECORDS SUMMARY | ~2020-07-29 | XMS | Encounter Summary ---
Demographics + + + | Address | [address] | | | [place] [address] | + + + | Home Phone [...] Author + + + | Author | [facility] | + + + | Organization | [facility] | + + + | [...] [place] | | | | | [address] | | + + + + + Care Team Providers + +------+ + | Care Veneer Clipper Helper Name | Role | Phone | + +------+ + | Sharon David MD | PCP | | + +------+ + Encounter Details +--------+ + + + + | Date | Type | Department | Care Team | Description | +--------+ + + + + | 11/11/ | Pharmacy | Outpatient Retail | | | | 2019 | Visit | [facility] | | | | | | [address] | | | | | | Loop [place], [place] | | | | | | [address] | | | | | | [phone] | | | +--------+ + + + [...] Rd | | | | | | [place], [place] | | | | | | [address] | | | | | | [phone] | | | | | | | | +--------+ + + + + | 09/27/ | Telephone-S | Liver Transplant | Vimal Crowe MD | | | 2019 | cheduled | | [address] | | | | | | [email or web address] [place], | | | | | | [place] [address] | | | | | | [phone] | | | | | | | [...] Rd | | | | | | [place], [place] | | | | | | [address] | | | | | | [phone] | | | | | | | | +--------+ + + + + documented as of this encounter Visit Diagnoses Not on filedocumented in this encounter"
--- OUTSIDE RECORDS SUMMARY | ~2020-07-29 | XMS | Encounter Summary ---
Demographics + + + | Address | [address] | | | [place] [address] | + + + | Home Phone [...] [place] | | | | | [address] | | + + + + + Care Team Providers + +------+ + | Care Tip Printer Name | Role | Phone | + +------+ + | Sharon David MD | PCP | | + +------+ + Reason for Visit + +--------+ + | Reason | Onset | Comments | | | Date | | + +--------+ + | Referral | 07/16/ | | | | 2018 | | + +--------+ + Encounter Details +--------+ + + + + | Date | Type | Department | Care Team | Description | +--------+ + + + + | 07/16/ | Telephone | [facility] | Tyson Bellamy, | Referral | | 2019 | | Clinics at S | MD [address] | | | | | [address] [place], | | | | | [facility] | [place] [address] | | | | | [facility], | [phone] | | | | | [address] | | | | | | [place], [place] | | | | | | [address] | | | | | | [phone] | | | +--------+ + + + [...] this encounter Miscellaneous Notes Telephone Encounter - Anshul Taylor RN - 07/20/2019 5:10 PM PDTFormatting of this note m ight be different from the original. --> Received [facility] routing comment message: MD Garrison Guzman 14 minutes ago (4:55 PM) Yes, he should have followup after DC for co-management of iron chelation. Thank you. Let me know if I can help with anything, Routing comment Call to Dr. Rodriguez. No answer. Left message notifying of above. Provided clinic number ([phone]) and [facility] Physician Consult Line ([phone]) for further questions / rickie rns. elephone Encounter - Garrison Serra - 07/20/2019 3:[address] Rodriguez's office calls, stati ng that the patient is inpatient at [facility] now. Asks that if the patient still needs to be re ferred to Dr. Rodriguez, to please give Dr. Rodriguez's office a call so the patient can be notified before he is discharged. Caller states that the patient was scheduled for a fi rst appointment with Dr. Rodriguez at one point, but missed the appointment. Caller state s the patient is very sick, suspects that the patient is confused often. Sonia gives callback number [phone] (Dr. Rodriguez's office). Routing to [facility] and MD elep alyssa Encounter - Madhuri Buckner RN - 07/16/2019 3:38 PM PDTReturned call to Sonia and i nformed her patient's sister Doreen Manley and their mother come with patient to his appointm ents. Sonia reports she tried calling him but she has difficulty understanding him and is n't sure if he is confused. Informed her I know he has cirrhosis of the liver and not sure w hat the ammonia level might be that could contribute to it. She will call Doreen. Instructed to call back if she needs any further information. elephone Encounter - Natalie Reyes - 07/16/2019 2:06 PM SUMI sanabria from 's office is calling and requesting a call back concerning patie nt care. States that patient missed appointment today 07/16, and had a little confusion. Sonia ask s if team knows if patient has anyone coordinating appointments for patient. Requesting a call back to advise if patient has pet care associate Dr.Quackenbusch Sonia's office P) [phone] Routing to RNC elephone Encounter - Madhuri Buckner RN - 07/16/2019 1:40 PM PDTReturned call to number listed but c all went to voicemail. Left message requesting a call back. Voicemail indicates the number i s for [facility] and their manager family. elephone Encounter - Katarzyna Graff - 07/16/2019 11:15 AM Perez- dr. alexa pike Calling about the referral merlyn t was sent over on 06/30. She didn't want to state any other information just wants a call back from RN Routing-rnc documented in this encounter Plan of Treatment [...] | | | | | | [place], [place] | | | | | | [address] | | | | | | [phone] | | | | | | | | +--------+ + + + + | 09/27/ | Telephone-S | Liver Transplant | Vimal Crowe MD | | | 2019 | cheduled | | [address] | | | | | | [facility] [address] [place], | | | | | | [place] [address] | | | | | | [phone] | | | | | | | | +--------+ + + + + | 10/03/ | Appointment | Cardiology | | | | 2019 | | | | | +--------+ + + + + | 10/03/ | Office | Cardiology | Cyril Samuel | | | 2019 | Visit | | MD Patricia [address] | | | | | | [address] | | | | | | [place], [place] | | | | | | [address] | | | | | | [phone] | | | | | | | | +--------+ + + + + documented as of this encounter Visit Diagnoses Not on filedocumented in this encounter"
--- OUTSIDE RECORDS SUMMARY | ~2020-07-29 | XMS | Encounter Summary ---
Demographics + + + | Address | [address] | | | [place] [address] | + + + | Home Phone [...] [place] | | | | | [address] | | + + + + + Care Team Providers + +------+ + | Care Digital Asset Coordinator Name | Role | Phone | + +------+ + | Sharon David MD | PCP | | + +------+ + Encounter Details +--------+ + + + + | Date | Type | Department | Care Team | Description | +--------+ + + + + | 04/22/ | Pharmacy | [facility] | | | | 2020 | Visit | [address] | | | | | | [address] | | | | | | [place] [address] | | | | | | [phone] | | | +--------+ + + + [...] Rd | | | | | | [place], [place] | | | | | | [address] | | | | | | [phone] | | | | | | | | +--------+ + + + + | 09/27/ | Telephone-S | Liver Transplant | Vimal Crowe MD | | | 2019 | cheduled | | [address] | | | | | | [address], | | | | | | [place] [address] | | | | | | [phone] | | | | | | | [...] | | | | | | [place] | | | | | | [address] | | | | | | [phone] | | | | | | | | +--------+ + + + + documented as of this encounter Visit Diagnoses Not on filedocumented in this encounter"
--- OUTSIDE RECORDS SUMMARY | ~2020-07-29 | XMS | Encounter Summary ---
Demographics + + + | Address | [address] | | | [place] [address] | + + + | Home Phone [...] [place] | | | | | [address] | | + + + + + Care Team Providers + +------+ + | Care Building Supervisor Name | Role | Phone | + +------+ + | Sharon David MD | PCP | | + +------+ + Encounter Details +--------+ + + + + | Date | Type | Department | Care Team | Description | +--------+ + + + + | 07/05/ | Pharmacy | [facility] | | | | 2020 | Visit | [address] | | [address] | [address] | | | | | | [place] [address] | | | | | | [phone] | | | +--------+ + + + [...] [place] | | | | | | [address] | | | | | | [phone] | | | | | | | | +--------+ + + + + | 09/27/ | Telephone-S | Liver Transplant | Vimal Crowe MD | | | 2019 | cheduled | | [address] | | | | | | [address], | | | | | | [place] [address] | | | | | | [phone] | | | | | | | [...] Rd | | | | | | [place] | | | | | | [address] | | | | | | [phone] | | | | | | | | +--------+ + + + + documented as of this encounter Visit Diagnoses Not on filedocumented in this encounter"
--- OUTSIDE RECORDS SUMMARY | ~2020-07-29 | XMS | Encounter Summary ---
Demographics + + + | Address | [address] | | | [place] [address] | + + + | Home Phone [...] [place] | | | | | [address] | | + + + + + Care Team Providers + +------+ + | Care Quartz Miner Name | Role | Phone | + +------+ + | Sharon David MD | PCP | | + +------+ + Encounter Details +--------+ + + + + | Date | Type | Department | Care Team | Description | +--------+ + + + + | 06/09/ | Pharmacy | [facility] | | | | 2020 | Visit | [address] | [address] | [address] | | | | | | [place] [address] | | | | | | [phone] | | | +--------+ + + + [...] Rd | | | | | | [place], [place] | | | | | | [address] | | | | | | [phone] | | | | | | | | +--------+ + + + + | 09/27/ | Telephone-S | Liver Transplant | Vimal Crowe MD | | | 2019 | cheduled | | [address] | | | | | | [address], | | | | | | [place] [address] | | | | | | [phone] | | | | | | | [...] Rd | | | | | | [place] | | | | | | [address] | | | | | | [phone] | | | | | | | | +--------+ + + + + documented as of this encounter Visit Diagnoses Not on filedocumented in this encounter"
--- OUTSIDE RECORDS SUMMARY | ~2020-07-29 | XMS | Encounter Summary ---
Demographics + + + | Address | [address] | | | [place] [address] | + + + | Home Phone | | + + + | Preferred Language | Unknown | + + + | Marital Status | Single | + + + | Hoahaoism Affiliation | NON | + + + [...] [place] | | | | | [address] | | + + + + + Care Team Providers + +------+ + | Care Warehouse Packer Name | Role | Phone | + [...] floor | | | | | | [place], [place] | | | | | | [address] | | | | | | [phone] | | | +--------+ + + + [...] Rd | | | | | | [place], [place] | | | | | | [address] | | | | | | [phone] | | | | | | | | +--------+ + + + + | 09/27/ | Telephone-S | Liver Transplant | Vimal Crowe MD | | | 2019 | [place] | | [address] | | | | | | [facility] [place], | | | | | | [place] [address] | | | | | | [phone] | | | | | | | [...] Rd | | | | | | [place], [place] | | | | | | [address] | | | | | | [phone] | | | | | | | | +--------+ + + + + documented as of this encounter Visit Diagnoses Not on filedocumented in this encounter"
--- OUTSIDE RECORDS SUMMARY | ~2020-07-29 | XMS | Encounter Summary ---
Demographics + + + | Address | [address] | | | [place] [address] | + + + | Home Phone [...] | | | | | [place] | | | | | [address] | | + + + + + Care Team Providers + +------+ + | Care Graduate Studies Dean Name | Role | Phone | + [...] | | | | [facility] | [place], [place] | | | | | Shyann, [address] [place] [address] | [address] | | | | | [place], [place] | [phone] | | | | | [address] | | | | | | [phone] | | | +--------+ + + + [...] fax from insurance regarding prior authori zation. [email or web address] [facility] insurance has approved patient's Veltassa 8.4GM OR PACK, expiration date 06.22.2021. Approval letter has been uploaded to patient's chart under "VAT Veltassa Approval" Kena Domínguez MA elephone Encounter - Kena Mccarty MA - 06/22/2020 2:29 PM PDTFaxed completed and signed form to: [employer] Attn: Pharmacy Services [phone] Copy uploaded to chart under [place] VAMonster Velcecissa PA Form Signed. Kena Domínguez MA elephone Encounter - Kena Mccarty MA - 06/22/2020 11:07 AM PDTReceived fax from [employer] regarding prior authorization for Veltassa 8.4GM Packets. Thompson: [id number] [employer] [address] [address] [facility] [address] # [phone] Received form for provider to complete. Once completed, please notify a Nephrology MA to f ax the completed for to: [employer] Attn: Pharmacy Services [phone] Form placed in provider box drive, under patient name PA Form and copy uploaded to [facility] Veltassa PA Form. Kena Domínguez MA elephone Encounter - Justin valdezjaunFilippo MA - 06/22/2020 9:54 AM PDTChart notes faxed to [facility] at [phone]. Filippo Mccurdy MA elephone Encounter - Kena Henderson MA - 06/21/2020 3:14 PM PDTReceived incoming fax from: [facility] "Please send chart notes for review as soon as possible." [facility] [address] [place] [address] PH# [phone] "Time sensitive. Please respond by 06/24/2020." "Please note that failure to provide the requested information prior to the date indicated above may result in denial of payment due to lack of supporting documentation." Copy of letter uploaded to chart. Kena Domínguez MA elephone Encounter - Kena Mccarty MA - 06/21/2020 8:43 AM PDTReceived fax from [facility] regarding p rior authorization for Veltassa Packets 8.4GM. Mahesh: "This is not a A member" Called [facility] S[facility]ATCH[facility] TEND[facility] [phone]. PA needs to process through the health plan directly which is [facility] ([facility]): [phone] Called [phone], started PA via phone. Requesting for us to fax over chart notes to: Pharmacy Operations [phone] Thompson: [email or web address] After chart notes are received and reviewed will fax back questions for Dr. Chao if needed . Provider: Please advise on which chart notes to fax and a Nephrology MA will fax them to: . Kena Domínguez MA elephone Encounter - Kena Mccarty MA - 06/17/2020 10:19 AM PDTReceived incoming fax from [facility] regard ing prior authorization for VELTASSA 8.4 GM POWDER PACKET. "The request was not processed fo r the following reasons: Patient is enrolled in a Managed Care Plan." Managed Care Plan: [facility] PH#[phone] Changed Payer via [employer] to: [facility] - Managed Medicaid Will await payer response for the required gr. Kena Domínguez MA elephone Encounter - Filippo Romero MA - 06/13/2020 9:27 AM PDTReceived fax from [employer]. They are not the ones who handle's Pas for this patient. Called pharmacy and asked them to re-send the rejection w ith the PA information so we can update and resend the PA out. elephone Encounter - Filippo Mccurdy MA - 06/09/2020 4:13 PM PDTPA is required for this medication. Received fax from [facility] regarding prior authorization for Patiromer 8.4 g ewelina oral powder. Insurance: [employer] ID: [id number] Group: [id number] BIN: [id number] PCN: [id number] Requested ePA on [facility] to initiate the process. Will await payer [...] Rd | | | | | | [place], [place] | | | | | | [address] | | | | | | [phone] | | | | | | | | +--------+ + + + + | 09/27/ | Telephone-S | Liver Transplant | Vimal Crowe MD | | | 2019 | [place] | | [address] | | | | | | [facility] [place], | | | | | | [place] [address] | | | | | | [phone] | | | | | | | [...] [place] | | | | | | [address] | | | | | | [phone] | | | | | | | | +--------+ + + + + documented as of this encounter Visit Diagnoses Not on filedocumented in this encounter
--- OUTSIDE RECORDS SUMMARY | ~2020-07-29 | XMS | Encounter Summary ---
Demographics + + + | Address | [address] | | | [place] [address] | + + + | Home Phone [...] [place] | | | | | [address] | | + + + + + Care Team Providers + +------+ + | Care Fireworks Assembly Supervisor Name | Role | Phone | + +------+ + | Sharon David MD | PCP | | + +------+ + Encounter Details +--------+ + + + + | Date | Type | Department | Care Team | Description | +--------+ + + + + | 01/11/ | Abstract | Clinical | Vimal Crowe MD | | | 2019 | | Transplant Services | [address] | | | | | [address] | [address] [place], | | | | | [place], | [place] [address] | | | | | [place] [address] | [phone] | | | | | [phone] | | | +--------+ + + + [...] Rd | | | | | | [place], [place] | | | | | | [address] | | | | | | [phone] | | | | | | | | +--------+ + + + + | 09/27/ | Telephone-S | Liver Transplant | Vimal Crowe MD | | | 2019 | [place] | | [address] | | | | | | [facility] [address] [place], | | | | | | [place] [address] | | | | | | [phone] | | | | | | | | +--------+ + + + + | 10/03/ | Appointment | Cardiology | | | | 2019 | | | | | +--------+ + + + + | 10/03/ | Office | Cardiology | Cyril Samuel | | | 2019 | Visit | Darren Gomez MD [address] | | | | | | [address] | | | | | | [place], [place] | | | | | | [address] | | | | | | [phone] | | | | | | | | +--------+ + + + + documented as of this encounter Procedures + +--------+ + + + | Procedure Name | Priori | Date/Time | Associated Diagnosis | Comments | | | ty | | | | + +--------+ + + + | LIVER TRANSPLANT | Routin | 01/11/2020 | | Results for this | | POST PANEL (EXT | e | 10:05 AM | | procedure are in the | | RESULTS) | | PDT | | results section. | + +--------+ + + + documented in this encounter Results LIVER TRANSPLANT POST PANEL (EXT RESULTS) (01/11/2020 10:05 AM PDT) + + + + + [...] + + | POTASSIUM, | 4.5 | mmol/L | [facility] | | | [...] + + + | TOTAL CO2, | 32 | mmol/L | [facility] | | | PLASMA | | | LAB - | | | (LAB) | | | [place] | | + + + + + + | GLUCOSE, | 224 (A) | 65 - 110 mg/dL | [...] + + + + | CREATININE | 2.04 | mg/dL | [facility] | | | PLASMA | | | LAB - | | | (LAB) | | | [place] | | + + + + + + | CALCIUM, | 9.5 | mg/dL | [facility] | | | [...] + + + | ALK PHOS | 51 | U/L | [facility] | | | | | | LAB - | | | | | | [place] | | + + + + + + | AST(SGOT) | 11 | U/L | [facility] | | | | | | LAB - | | | | | | [place] | | + + + + + + | ALT (SGPT) | 11 | U/L | [facility] | [...] + + + | WHITE CELL | 5.8 | K/cu mm | [facility] | | | COUNT | | | LAB - | | | | | | [place] | | + + + + + + | HEMATOCRIT | 32.9 | % | [facility] | | | | | | LAB - | | | | | | [place] | | + + + + + + | HEMOGLOBIN | 11.2 (A) | 13.5 - 17.5 | [facility] | | | | | g/dL | LAB - | | | | | | [place] | | + + + + + + | PLATELET | 80 | K/cu mm | [facility] | | | COUNT | | | LAB - | | | | | | [place] | | + + + + + + | TACROLIMUS | 7.9 | ng/mL | [facility] | | | [...] | [facility] - | [address] | [place] | [phone] | | [place] | | | | + + + + + documented in this encounter Visit Diagnoses Not on filedocumented in this encounter"
--- OUTSIDE RECORDS SUMMARY | ~2020-07-29 | XMS | Encounter Summary ---
Demographics + + + | Address | [address] | | | [place] [address] | + + + | Home Phone [...] [place] | | | | | [address] | | + + + + + Care Team Providers + +------+ + | Care Mail Distribution Clerk Name | Role | Phone | + +------+ + | Sharon David MD | PCP | | + +------+ + Reason for Visit Physical Therapy (Routine) +--------+--------+ + + + [...] | | cirrhosis of | [address] | [facility] | | | | | liver with | [facility] | for Health | | | | | ascites | Rd | and Healing, | | | | | (HCC) | [place], [place] | Building [address], | | | | | Procedures | [address] | 1st Floor | | | | | PHYSICAL | Phone: | [place], [place] | | | | | THERAPY | [phone] | [address] | | | | | REFERRAL | | Phone: | | | | | | | [phone] | | | | | | | Fax: | | | | | | | [phone] | +--------+--------+ + + + + Encounter Details +--------+---------+ + + + | Date | Type | Department | Care Team | Description | +--------+---------+ + + + | 09/21/ | Office | [facility] | Dennys Hinson, PT | Difficulty walking | | 2019 | Visit | Therapy Services at | [address] | (Primary Dx); Leg | | | | [place] [address] [place], | edema; Alcoholic | | | | [address] | [place] [address] | cirrhosis of liver | | | | [facility] | [phone] | with ascites (HCC); | | | | and Healing, | | Status post liver | | | | Building 1, 1st | | transplant (HCC) | | | | Floor [place], [place] | | | | | | [address] | | | | | | [phone] | | | +--------+---------+ + + + [...] documented as of this encounter Progress Notes Dennys Hinson, PT - 09/21/2019 9:15 AM PST Insurance: Payor: [facility] / Plan: [facility] [place] / Product Type: Medicaid / Non-Medicare [facility] PHYSICAL THERAPY EVALUATION Past Medical History: Diagnosis Date Cirrhosis (HCC) CKD (chronic kidney disease) Past Surgical History Procedure Laterality Date Leg surgery Current Outpatient Medications: acetaminophen 500 mg oral tablet, Take 1 tablet by mouth ev kenneth six hours as needed. Indications: pain, Disp: 120 tablet, Rfl: 5 Alcohol Swabs (ALCOHOL PREP SWABS) topical pads, medicated, Apply 1 each to affected area f prudence times daily. Use as directed., Disp: 200 each, Rfl: 1 amiodarone 200 mg oral tablet, Take 1 tablet by mouth once daily. Indications: Prevention o f Ventricular Fibrillation, Disp: 30 tablet, Rfl: 1 aspirin EC 325 mg oral tablet,delayed release (DR/EC), Take 1 tablet by mouth once daily., Disp: 100 tablet, Rfl: 5 Blood Sugar Diagnostic (FREESTYLE LITE STRIPS) miscellaneous (misc) strip, Test blood sugar four times daily (before each meal and at bedtime). Use as directed. Indications: type 2 di abetes mellitus, Disp: 150 each, Rfl: 5 Blood-Glucose Meter (FREESTYLE LITE METER) miscellaneous (misc) kit, Use as directed. Use a s directed., Disp: 1 each, Rfl: 0 calcium carbonate 500 mg elemental (1,250 mg total salt) oral tablet, Take 2 tablets by once daily at bedtime. Indications: osteoporosis prevention, Disp: 100 tablet, Rfl: 5 Cholecalciferol (Vitamin D3) 2,000 unit oral tablet, Take 1 tablet by mouth once daily., Di sp: , Rfl: fluconazole 200 mg oral tablet, Take 2 tablets by mouth every Saturday. Indications: fungal i nfection prevention, Disp: 8 tablet, Rfl: 1 insulin lispro (Human) 100 unit/mL subcutaneous insulin pen, Inject 5 units under the skin with breakfast, 10 units under the skin with lunch, 12 units under the skin with dinner. Max dose = 56 units per day Indications: type 2 diabetes mellitus, Disp: 15 mL, Rfl: 1 Insulin [place] (Disposable) (COMFORT EZ PEN NEEDLES) 31 gauge x 5/16" miscellaneous (misc) needle, Use as directed for 5 insulin injections per day., Disp: 150 each, Rfl: 5 insulin NPH 100 unit/mL (3 mL) subcutaneous insulin pen, Inject 18 Units under the skin (ODEN BC) once daily in the morning AND 8 Units once daily in the evening. Indications: type 2 gale betes mellitus., Disp: 15 mL, Rfl: 1 lancets (FREESTYLE LANCETS) 28 gauge miscellaneous (misc) misc, Test blood sugar four times daily (before each meal and at bedtime). Indications: type 2 diabetes mellitus, Disp: 150 e ach, Rfl: 5 metoprolol succinate 25 mg oral tablet extended release 24 hr, Take 0.5 tablets by mouth on ce daily. Indications: high blood pressure, Disp: 15 tablet, Rfl: 5 Miscellaneous Medical Supply miscellaneous (misc) misc, Chlorhexidine prep sticks (small), Disp: 30 each, Rfl: 2 multivitamin oral tablet, Take 1 tablet by mouth once daily. Indications: Treatment To Prev ent Vitamin Deficiency, Disp: 100 tablet, Rfl: 5 mycophenolate 250 mg oral capsule, Take 4 capsules by mouth two times daily. Indications: l iver transplant rejection prevention, Disp: 240 capsule, Rfl: 5 omeprazole 20 mg oral capsule,delayed release(DR/EC), Take 1 capsule by mouth once daily. I ndications: heartburn, Disp: 30 capsule, Rfl: 5 oxyCODONE (immediate release) 5 mg oral tablet, Take 0.5 tablets by mouth every six hours a s needed for breakthrough pain., Disp: 10 tablet, Rfl: 0 predniSONE 5 mg oral tablet, Take 4 tablets by mouth once daily. Indications: liver transpl ant rejection prevention, Disp: 120 tablet, Rfl: 5 QUEtiapine (SEROQUEL) 25 mg oral tablet, Take 0.5 tablets by mouth once daily at bedtime., Disp: 15 tablet, Rfl: 1 senna-docusate (SENNA WITH DOCUSATE SODIUM) 8.6-50 mg oral tablet, Take 1 tablet by mouth t wice daily as needed. Indications: constipation, Disp: 100 tablet, Rfl: 1 tacrolimus 1 mg oral capsule, Take 4 capsules by mouth two times daily. Indications: liver transplant rejection prevention, Disp: 300 capsule, Rfl: 5 trimethoprim-sulfamethoxazole 80-400 mg oral tablet, Take 1 tablet by mouth three times wee kly (on Saturday, and Saturday). Please take after dialysis Indications: pneumonia p revention, Disp: 30 tablet, Rfl: 2 valGANciclovir 450 mg oral tablet, Take 1 tablet by mouth three times weekly (on Saturday, and Saturday). Please take after dialysis sessions Indications: viral infection prev ention, Disp: 30 tablet, Rfl: 2 Previous physical therapy treatment or alternative treatments for this condition includes: Inpatient physical therapy. Results of previous treatment: Somewhat effective. Concurrent medical treatment: Dialysis, post liver transplant care SUBJECTIVE: 09/21/2019 States he has dropped 11 lbs in 4 days. Lower chairs are difficult to get up from Past 3 days tired. Had some changes in his medication. Not been doing much past few days. History of Presenting Problems: Donell is a 54 y.o. person with complaints of post Liver trans plant on 08/16/2019. Limited mobility due to leg and pelvic region swelling. Diabetic, states his numbers are looking good. HD 3x/wk Now at home single floor 5 stairs to go in managing with handrail. Family member at home with him for 3 months. Walking in home, outdoors-yesterday went to [place] for the day did a little walking. Swelling in legs Open wound R ankle Tingling toes with prolonged walking. D/c from hospital 4 days ago, has yet to do any home exercises. Activity limitations and participation restrictions: NO LIFTING 10 LBS FOR 2-3 MONTHS Patient's Activity and participation goal(s) with therapy: care for self, walk for 2 hours Chief complaint: weakness, altered sensation and swelling Symptom description: swelling affects walking steadiness and ability to sit to stand Onset date: 08/16/19 Intensity: 3/10 none currently sitting, but then notes pain with sitting down due to genita l swelling. Fatigue: 10/30 today Aggravates: prolonged walking or sitting increases swelling. Eases: props feet up. Other symptoms: no lifting greater than 10 lbs for 2-3 months Relevant PMH: Liver transplant 08/16/19, kidney dialysis. Prior Level of Function: Walking 1 mile, living on own Exercise: current Equipment patient currently has: raised toilet seat. Living situation: lives with family. Work History: not working 1.5 yrs. 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 OBJECTIVE: Vitals BP 141/78 HR 79 Po2 =100% Observation/Posture: appears tired and tremor with effort notable in legs upon standing up. Gait continues to be wide ER stance. Range Of Motion: UE WFL Ankle Strength: UE grossly 5/5, ankles, knees 5/5 Able to toe rise and heel rise with 2H Motor Control: mild tremor Sensation: light touch intact feet/toes Vision and eye movements: no problems reported. Balance Modified Clinical Test for Sensory Integration and Balance (mCTSIB): Firm Surface Eyes Open: 30 seconds Firm Surface Eyes Closed: 30 seconds Foam Surface Eyes Open: nt Foam Surface Eyes Closed: nt Single limb stance eyes open firm surface: RLE: unable sec; LLE: unable sec (painful in pe lvic region d/t swelling) Gait: Assistive device: uses WC to appt. But walking in home and outdoors short distances Deviations: very wide stance and 45 deg out toe due to pelvic region swelling. Outcome measure Interpretation 54 y.o. Score 09/03/2019 5 Times Sit to Stand not tested due to pelvic swelling and pain with sit to stand Risk of recurrent falls cut off >15 s Balance problem: Younger (< 60 years): 10 sec Older (> 60 years): 14.2 sec 1x takes 8-10 sec Gait 25' walk Normal values: < 70 y/o 5.5 s (or 3.1 mph) 6.82 sec self selected without assistive device Unable to change speeds without becoming unsteady 6 min walk test 50-59 yo: male 2178' Defer to next visit. Treatment: Home exercise program Supine bridges Supine cane flexion and side to side minimal rotation of trunk Standing heel/toe raises 2H on wall for support. Walk 5 minutes 3x day progress as becomes easier and less fatigue. Use talk test for walk ing effort level. Education: Rehabilitation diagnosis and plan of intermediate program: Exercise Date given Ankle pumps in sitting 10x 3x day 09/03/2019 LAQ 10x 3x day 09/03/[address] 10x 3x day 09/03/2019 Mini squat 10x 3x day 09/03/2019 Bridging 10x 3x day 09/21/2019 ASSESSMENT: Tired today, but he felt and appeared brighter by end of session today. Needs cues to stay on task. Fair compliance with exercises-provided another handout to encourage compliance. FUNCTIONAL GOALS: due in 12 weeks Goal 09/03/2019 Status @ eval (09/03/2019) Status of goal (11/02/2019) Pt will be consistent and independent with home exercise program to promote self-efficacy(11/03/2018) Home exercise program initiated Pt will be able to walk 6 minutes in his age norms to show improved cardio (09/03/2019) 25 ft >6 sec Patient will be able to transfer without support (09/03/2019) 2H slow and painful PLAN Next visit plan: 6 MWT, progress leg strengthening exercises. This note is to serve as the discharge summary if the patient fails to attend further Physi julia Therapy appointments or contact the therapist regarding any change in their status. [facility] Scheduled Appointment time: 9:15 AM The patient was seen for a total of 45 minutes of treatment time. 45 minutes was in direct contact care as described above and on completed flow sheets. Treatment Interventions duration in minutes: Procedure: Therapeutic Exercise 40 min Authorization information for first visit and progress reports Procedure Codes: Therapeutic Exercise 71733 and Gait Training 70414 Minutes per session: 45 Total number of visits: 12 Frequency: 1x week Duration: 3 months (must exceed or match Medicare service period reque st) Service period from: 09/03/2019 to: - (Medicare must match duration or be no greater than 90 days if proposed duration is greater than 3 months) Start of care: 09/03/2019 Referral information Authorizing Provider: LUAN VALE [[id number]] Onset/Referral Date: 08/29/19 Primary/Referral Diagnosis: K70.31 Alcoholic cirrhosis of liver with ascites (HCC) R60.0 Leg edema R26.2 Difficulty walking Next progress report 11/02/2019 Insurance: Payor: [facility] [place] / Plan: [facility] [place] / Product Type: Medicaid / Number visits authorized: 13 (09/04/2019) Number visits used: 2 Outcome Measure 09/03/2019 Activity 1 (3 point increase is significant for any one activity): 1 (walking 2 hours) Activity 2: 1 (sleep in bed for 8 hours) Activity 3: 1 (care for self) Activity 4: 0 Activity 5: 0 Patient Specific Functional Scale Total Score: 3 . documented in this enco unter Plan of Treatment +--------+ + + + + | Date | Type | Specialty | Care Team | Description | +--------+ + + + + | 08/08/ | Telephone-S | Nephrology | Angélica Chao, | | | 2019 | [place] | | [address] | | | | | | [address] | | | | | | [place], [place] | | | | | | [address] | | | | | | [phone] | | | | | | | | +--------+ + + + + | 09/27/ | Telephone-S | Liver Transplant | Vimal Crowe MD | | | 2019 | [place] | | [address] | | | | | | [address], | | | | | | [place] [address] | | | | | | [phone] | | | | | | | | +--------+ + + + + | 10/03/ | Appointment | Cardiology | | | | 2019 | | | | | +--------+ + + + + | 10/03/ | Office | Cardiology | Cyril Samuel | | | 2020 | Visit | | MD Patricia [address] | | | | | | [address] | | | | | | [place], [place] | | | | | | [address] | | | | | | [phone] | | | | | | | | +--------+ + + + + documented as of this encounter Procedures + +--------+ + + + | Procedure Name | Priori | Date/Time | Associated Diagnosis | Comments | | | ty | | | | + +--------+ + + + | [facility] TH[facility]APEUTIC | Routin | 09/21/2019 | Difficulty walking | | | EXERCISES | e | 1:37 PM | Leg edema | | | | | PST | Alcoholic cirrhosis | | | | | | of liver with | | | | | | ascites (HCC) | | | | | | Status post liver | | | | | | transplant (HCC) | | + +--------+ + + + documented in this encounter Visit Diagnoses + + | Diagnosis | + + | Difficulty walking - Primary Difficulty in walking | + + | Leg edema Edema | + + | Alcoholic cirrhosis of liver with ascites (HCC) Alcoholic cirrhosis of liver | + + | Status post liver transplant (HCC) Liver replaced by transplant | + + documented in this encounter
--- OUTSIDE RECORDS SUMMARY | ~2020-07-29 | XMS | Encounter Summary ---
Demographics + + + | Address | [address] | | | [place] [address] | + + + | Home Phone | | + + + | Preferred Language | Unknown | + + + | Marital Status | Single | + + + | Sikhism Affiliation | NON | + + + [...] [place] | | | | | [address] | | + + + + + Care Team Providers + +------+ + | Care Manufacturing Baker Name | Role | Phone | + +------+ + | Sharon David MD | PCP | | + +------+ + Reason for Visit + + + | Reason | Comments | + + + | HCC Screening | Physician review | + + + Encounter Details +--------+ + + + + | Date | Type | Department | Care Team | Description | +--------+ + + + + | 05/21/ | Documentati | Clinical | Haley Fernández, | HCC Screening | | 2019 | on | Transplant Services | RN [address] | (Physician review) | | | | [address] | [address] | | | | | [place], | [place], [place] | | | | | [place] [address] | [address] | | | | | [phone] | | | +--------+ + + + [...] Telephone Encounter - Haley Fernández RN - 05/21/2019 4:09 PM PDTFormatting of this not e might be different from the original. Donell had a CT abd done 05/19/19 with the following results for routine HCC screening- 05/19/19, CT abd wwo [place], [facility]: IMPRESSION: Heterogeneous perfusion to the liver parenchyma that may be sequela of previously suggested hemachromatosis, or underlying liver dysfunction, without focal mass lesion suggestive of h epatocellular carcinoma. Cirrhosis and sequela of portal hypertension including portosystemic collaterals, splenoren al shunt, portal hypertension, without ascites. Results for DONELL LAWSON ( ) Ref. Range 04/21/2019 08:39 AFP TUMOR MARKER SERUM, [facility] Latest Ref Range: <=9.0 ng/mL 14.9 (H) Routing to Dr. Crowe for review and plan for follow-up. (Dr. Garcia reviewed and there ar e no surgical concerns based on this scan.) Plan from Committee Review on 04/30/19 was for protocol HCC screening with abd US alternatin g with abd CT every 6 months with AFP - this will be put in place unless otherwise specified . documented in this encounter Plan of Treatment [...] Rd | | | | | | [place], [place] | | | | | | [address] | | | | | | [phone] | | | | | | | | +--------+ + + + + | 09/27/ | Telephone-S | Liver Transplant | Vimal Crowe MD | | | 2019 | ched[place] | | [address] | | | | | | [facility] [address] [place], | | | | | | [place] [address] | | | | | | [phone] | | | | | | | [...] Rd | | | | | | [place], [place] | | | | | | [address] | | | | | | [phone] | | | | | | | | +--------+ + + + + documented as of this encounter Visit Diagnoses Not on filedocumented in this encounter"
--- OUTSIDE RECORDS SUMMARY | ~2020-07-29 | XMS | Encounter Summary ---
Demographics + + + | Address | [address] | | | [place] [address] | + + + | Home Phone | | + + + | Preferred Language | Unknown | + + + | Marital Status | Single | + + + | Episcopal Affiliation | NON | + + + [...] [place] | | | | | [address] | | + + + + + Care Team Providers + +------+ + | Care Staff Psychologist Name | Role | Phone | + +------+ + | Sharon David MD | PCP | | + +------+ + Encounter Details +--------+ + + + + | Date | Type | Department | Care Team | Description | +--------+ + + + + | 07/11/ | Pharmacy | [facility] | | | | 2020 | Visit | [address] | | | | | [address] | | | | | | [place] [address] | | | | | | [phone] | | | +--------+ + + + [...] Rd | | | | | | [place], [place] | | | | | | [address] | | | | | | [phone] | | | | | | | | +--------+ + + + + | 09/27/ | Telephone-S | Liver Transplant | Vimal Crowe MD | | | 2019 | [place] | | [address] | | | | | | [address], | | | | | | [place] [address] | | | | | | [phone] | | | | | | | [...] Rd | | | | | | [place] | | | | | | [address] | | | | | | [phone] | | | | | | | | +--------+ + + + + documented as of this encounter Visit Diagnoses Not on filedocumented in this encounter"
--- OUTSIDE RECORDS SUMMARY | ~2020-07-29 | XMS | Encounter Summary ---
Demographics + + + | Address | [address] | | | [place] [address] | + + + | Home Phone [...] [place] | | | | | [address] | | + + + + + Care Team Providers + +------+ + | [employer] Name | Role | Phone | + +------+ + | Sharon David MD | PCP | | + +------+ + Encounter Details +--------+ + + + + | Date | Type | Department | Care Team | Description | +--------+ + + + + | 05/31/ | Abstract | Clinical | Vimal Crowe MD | | | 2020 | | Transplant Services | [address] | | | | | [address] | [address] [place], | | | | | [place], | [place] [address] | | | | | [place] [address] | [phone] | | | | | [phone] | | | +--------+ + + + [...] Rd | | | | | | [place], [place] | | | | | | [address] | | | | | | [phone] | | | | | | | | +--------+ + + + + | 09/27/ | Telephone-S | Liver Transplant | Vimal Crowe MD | | | 2019 | [place] | | [address] | | | | | | [facility] [address] [place], | | | | | | [place] [address] | | | | | | [phone] | | | | | | | | +--------+ + + + + | 10/03/ | Appointment | Cardiology | | | | 2019 | | | | | +--------+ + + + + | 10/03/ | Office | Cardiology | Cyril Samuel | | | 2019 | Visit | Darren Gomez MD [address] | | | | | | [address] | | | | | | [place], [place] | | | | | | [address] | | | | | | [phone] | | | | | | | [...] Results LIVER TRANSPLANT POST PANEL (EXT RESULTS) (05/30/2020 7:22 AM PDT) + + + + [...] + + + + | GLUCOSE, | 287 (A) | 65 - 110 mg/dL | [facility] | | | PLASMA | | | LAB - | | | (LAB) | | | [facility] | | + + + + + + | BUN, PLASMA | 46 | mg/dL | [facility] | | | (LAB) | | | LAB - | | | | | | [facility] | | + + + + + + | CREATININE | 2.33 | mg/dL | [facility] | | | PLASMA | | | LAB - | | | (LAB) | | | [facility] | | + + + + + + | CALCIUM, | 9.7 | mg/dL | [facility] | | | [...] + + + | URIC ACID, | 6.9 | mg/dL | [facility] | | | PLASMA | | | LAB - | | | (LAB) | | | [facility] | | + + + + + + | WHITE CELL | 5.4 | K/cu mm | [facility] | | | COUNT | | | LAB - | | | | | | [facility] | | + + + + + + | HEMATOCRIT | 32.2 | % | [facility] | | | [...] + + + + | PLATELET | 102 | K/cu mm | [facility] | | | COUNT | | | LAB - | | | | | | [facility] | | + + + + + + | TACROLIMUS | 6.6 | ng/mL | [facility] | | | [...] [address] | [place] | [phone] | | [place] | | | | + + + + + documented in this encounter Visit Diagnoses Not on filedocumented in this encounter"
--- OUTSIDE RECORDS SUMMARY | ~2020-07-29 | XMS | Encounter Summary ---
Demographics + + + | Address | [address] | | | [place] [address] | + + + | Home Phone [...] [place] | | | | | [address] | | + + + + + Care Team Providers + +------+ + | Care Naval Architect Name | Role | Phone | + +------+ + | Sharon David MD | PCP | | + +------+ + Reason for Visit + + + | Reason | Comments | + + + | Nausea and vomiting | | + + + | Referral | | + + + Encounter Details +--------+ + + + + | Date | Type | Department | Care Team | Description | +--------+ + + + + | 10/05/ | Emergency | [facility] Emergency | Ebony Francois | | | 2018 | | Department [address] | MD [place] [address] | | | | | [address] | [place] | | | | | [facility] | [place], [place] | | | | | [place], [place] | [address] | | | | | [address] | [phone] | | | | | [phone] | | | +--------+ + + + [...] + + + | Blood Pressure | 140/89 | 10/05/2019 3:18 PM | | | | | PST | | + + + + + | Pulse | 81 | 10/05/2019 9:35 AM | | | | | PST | | + + + + + | Temperature | 36.5 C (97.7 F) | 10/05/2019 9:35 AM | | | | | PST | | + + + + + | Respiratory Rate | 14 | 10/05/2019 1:51 PM | | | | | PST | | + + + + + | Oxygen Saturation | 100% | 10/05/2019 3:18 PM | | | | | PST | | + + + + + | Inhaled Oxygen | - | - | | | Concentration | | | | + + + + + | Weight | 83.1 kg (183 lb 4.8 | 10/05/2019 9:32 AM | | | | oz) | PST | | + + + + + | Height | - | - | | + + + + + | Body Mass Index | 25.57 | 09/25/2019 10:07 AM | | | | | PST [...] + documented as of this encounter Discharge Instructions Instructions Nisreen Alvarado MD - 10/05/2019Thank you for choosing the [facility] Emergency Dep artment for your care today. You were seen for nausea, fatigue. We performed the following tests, with the following results: lab tests that show stable ch anges, CT scans showing no changes from prior. You were treated with IV fluids. Liver transplant came to see you. We formulated a plan with them to evaluate you for infect ion. We suggest that you work with your mother to take all of your prescribed medications ap propriately. Do not miss any doses. You can take your normal medications this evening even though you missed your morning doses . You are going home on a new medication called mirtazapine for appetite and sleep. I have pr escribed 2 weeks; you should get this medication refilled with your transplant team or PCP. As discussed with you in person, we recommend that you follow up with your Liver Transplant Team on Saturday. It is very important to keep this appointment. If you would like to schedule an appointment in the Family Medicine clinic at [facility], please call: [phone]. For an appointment in [facility] Internal Medicine clinic, please call: [phone]. Please return to the [facility] Emergency Department if you experience any sudden or concerning c hanges to your health, including fevers, confusion, inability to eat or drink, diarrhea, abd ominal pain, rash or any other concerning symptoms. AttachmentsThe following attachments cannot be sent through Care Everywhere.Liver Transplan t: Post-op (Ugandan)documented in this encounter Medications at Time of [...] + + +---------+ + + | Insulin [place] | Use as directed for | 150 [...] + + documented as of this encounter Consult Notes Liv Stephenson LCSW - 10/05/2019 12:34 PM PSTPost- Transplant Social Work Inpatient Visit : Purpose of Visit: Standard Machine Stitcher met with pt at bedside due to inpt admission post transplant. Pt s Coping/Adjustment to Transplant Recovery: Standard Machine Stitcher met with pt after request from transplant team to offer support and potential resour jake for mental health counseling. Pt had his eyes closed throughout most of underwriter solicitation director's visit. It was difficult to understand pt as he was mumbling. Standard Machine Stitcher acknowledged pt might be having a difficult time post transplant emotionally. Pt states he's not really depressed. Standard Machine Stitcher o ffered resources in pt's area which pt accepted. He also reports he can call his [employer] job placement counselor or Meera. Standard Machine Stitcher encouraged this and told pt Meera may be able to do some sessions over the phone while he's in the area. Standard Machine Stitcher also talked with pt's mother Priaynka outside the room. Priyanka reports pt has been doing ok up until 2 weeks ago. She thinks that he is depressed and it's been difficult to get him up and going. Priyanka reports his sister got sick and wasn't able to visit this month which probably added to pt's mood. She also reports they packed pt's old apartment up and moved hi m completely out and it's not certain he will return to his old town. This has created a lot of uncertainty in his life which Priyanka thinks is contributing. He doesn't have many options but could move to [place] with Priyanka although there is some concern about insurance if he did this. Standard Machine Stitcher explained he could always get onto [place] medicaid and if needed could transfer t ransplant centers. Priyanka believes pt might just need to know he has options. Additional Concerns/Needs: Pt's depression, uncertainty of where he will live after the 3 months post transplant. [facility] plans to visit pt during clinic on 10/09. Plan: LOIN TRIMMER will continue to be available to provide support and assistance as needed. Liv Stephenson LCSW Liver Transplant [place] [phone] documented in this encounter ED Notes Chente Bro RN - 10/05/2019 3:45 PM PSTRN Discharge Note: Condition at time of discharge: Patient A&O x4, vital signs stable and appears in no acute distress. Patient up in wheelchair. Discharge instructions: Patient and Parent provided discharge instructions. Understanding of instructions is evidenced by review of follow-up plan, voiced understanding of plan of ca re and questions asked and answered. Written discharge instructions provided and reviewed. Prescriptions provided and reviewed. Destination: Patient discharged to home via POV with parent. Education provided to the patient/family: patient home with mother Chente Alberto RN - 10/05/2019 2:[address] scan, mask in place. Rosio Adamson RN - 10/05/2019 1:[address] Francois (via transplant team), patient to have scans without oral contrast. Communicated th is to measurement technician. Patient given plain water to drink, CT will arrange for transport to scan. El ectronically signed by Rosio Motley RN at 10/05/2019 1:58 PM Chente Alberto RN - 12:49 PM PSTMedical team in with patient. Chente Alberto RN - 10/05/2019 11:25 AM PSTPatient resting quietly, mother in room with patient. Electronically signed by Chente Bro RN at 09/20 11:25 AM Chente Alberto RN - 10/05/2019 10:58 AM PSTTransplant MD in with danisha ent. Kentrell Alberto RN - 10/05/2019 10:09 AM PSTPatient aware of need for urine specimen, urine cup labeled in presence of patient and antiseptic towelette given to patient with instructions on prope r technique to collect a clean catch specimen. Patient instructed to return specimen to room with them. hente Bro RN - 10/05/2019 10:08 AM PSTPatient with hx of liver transplant in Aug 16 2019, patient had pre and post surgical complications. Patient last had HD on 09/01 and was started on lasix p atient has been having some on going edema in legs which has not changed, discoloration to l egs, patient had been improving, not so fatigued and good appetite until the past few days, patient feeling nausea and headache intermittently, chills, no fevers, no appetite, no diarr hea. Patient has been sleeping more per mother and is so weak he is off balance at times. Pa jone sluggish to respond but answers questions appropriately does feel fuzzy headed at time s. Mother is concerned as he is not taking in food or fluids well. Ebony Vargas MD - 10/05/2019 10:01 AM PST ED Shared Provider Note, co-authored by Nisreen Alvarado MD and EBONY FRANCOIS MD: HPI Doug Lawson is a 54 year old male with past medical history significant for CK D and cirrhosis s/p liver transplant August 17, who presents feeling unwell. He reports fe eling better about two weeks ago, but since has developed body aches, decrease appetite, hea dache, nausea, and generalized malaise and weakness. Mother reports increasing sleeping. D enies fevers, night sweats, rhinorrhea, or sore throat. Mother reports some shortness of br eath especially when changing positions. No sick contacts. No reported falls or trauma. Patient hasn't had his immunosuppression (Prednisone 5mg, Tacrolimus, and Mycophenolate) me dications this morning. Discussing with the patient and his mother it is unclear if he alwa ys takes all of his medications. His mother believes that he is taking all of his medicatio ns as she administers the vast majority. He states that he has some in his room and "she do es not know what I do in my room." PCP: Sharon David MD Patient Active Problem List Diagnosis Date Noted [...] Hepatorenal syndrome (HCC) 02/27/2019 Abnormal echocardiogram 02/27/2019 Past Medical History Diagnosis Date Cirrhosis (HCC) CKD (chronic kidney disease) Past Surgical History Procedure Date Leg surgery Medications Prior to Admission Medications Prescriptions Last Dose Informant Patient Reported? Taking? Alcohol Swabs (ALCOHOL PREP SWABS) topical pads, medicated No No Sig: Apply 1 each to affected area five times daily. Use as directed. Blood Sugar Diagnostic (FREESTYLE LITE STRIPS) miscellaneous (misc) strip No No Sig: Test blood sugar four times daily (before each meal and at bedtime). Use as directed. Indications: type 2 diabetes mellitus Blood-Glucose Meter (FREESTYLE LITE METER) miscellaneous (misc) kit No No Sig: Use as directed. Use as directed. Cholecalciferol (Vitamin D3) 2,000 unit oral tablet No No Sig: Take 1 tablet by mouth once daily. Insulin [place] (Disposable) (COMFORT EZ PEN NEEDLES) 31 gauge x 5/16" miscellaneous (misc) needle No No Sig: Use as directed for 5 insulin injections per day. Miscellaneous Medical Supply miscellaneous (misc) misc No No Sig: Chlorhexidine prep sticks (small) amiodarone 200 mg oral tablet No No Sig: Take 1 tablet by mouth once daily. Indications: Prevention of Ventricular Fibrillation aspirin EC 325 mg oral tablet,delayed release (DR/EC) No No Sig: Take 1 tablet by mouth once daily. atovaquone 750 mg/5 mL oral suspension No No Sig: Take 10 mL by mouth once daily. calcium carbonate 500 mg elemental (1,250 mg total salt) oral tablet No No Sig: Take 2 tablets by mouth once daily at bedtime. Indications: osteoporosis prevention chlorhexidine 0.12 % mucous membrane mouthwash No No Sig: Use cotton swab to dab chlorhexdine and apply gently to wound. fluconazole 200 mg oral tablet No No Sig: Take 2 tablets by mouth every Saturday. Indications: fungal infection prevention insulin NPH 100 unit/mL (3 mL) subcutaneous insulin pen No No Sig: Inject 18 Units under the skin (SUBC) once daily in the morning AND 8 Units once daily in the evening. Indications: type 2 diabetes mellitus. Patient taking differently: Inject 17 Units under the skin (SUBC) once daily in the morning AND 7 Units once daily in the evening. Indications: type 2 diabetes mellitus. insulin lispro (Human) 100 unit/mL subcutaneous insulin pen No No Sig: Inject 5 units under the skin with breakfast, 10 units under the skin with lunch, 12 u nits under the skin with dinner. Max dose = 56 units per day Indications: type 2 diabetes me llitus lancets (FREESTYLE LANCETS) 28 gauge miscellaneous (misc) misc No No Sig: Test blood sugar four times daily (before each meal and at bedtime). Indications: type 2 diabetes mellitus magnesium oxide 250 mg elemental oral tablet No No Sig: Take 2 tablets by mouth two times daily. metoprolol succinate 25 mg oral tablet extended release 24 hr No No Sig: Take 0.5 tablets by mouth once daily. Indications: high blood pressure multivitamin oral tablet No No Sig: Take 1 tablet by mouth once daily. Indications: Treatment To Prevent Vitamin Deficienc y mycophenolate 250 mg oral capsule No No Sig: Take 4 capsules by mouth two times daily. Indications: liver transplant rejection prev ention omeprazole 20 mg oral capsule,delayed release(DR/EC) No No Sig: Take 1 capsule by mouth once daily. Indications: heartburn predniSONE 5 mg oral tablet No No Sig: Take 1 tablet by mouth once daily. Indications: liver transplant rejection prevention tacrolimus 1 mg oral capsule No No Sig: Take 2 capsules by mouth two times daily. Indications: liver transplant rejection prev ention trimethoprim-sulfamethoxazole 80-400 mg oral tablet No No Sig: Take 1 tablet by mouth once daily. Indications: pneumonia prevention valGANciclovir 450 mg oral tablet No No Sig: Take 1 tablet by mouth once daily. Indications: viral infection prevention Facility-Administered Medications: None Allergies Allergen Reactions Doxycycline Hives and Rash reports that he has never smoked. He quit smokeless tobacco use about 5 months ago. His s mokeless tobacco use included chew. He reports that he does not drink alcohol or use drugs. Social History Socioeconomic History Marital status: Single [...] file Gets together: Not on file Attends zoroastrian service: Not on file Active member of club or organization: Not on file Attends meetings of clubs or organizations: Not on file Relationship status: Not on file Other Topics Concern Not on file Social History Narrative Not on file Family History Problem Relation Liver cancer Neg Hx Review of Systems Complete ROS performed and negative except as noted in HPI. ED Triage Vitals BP Temp Heart Rate Pulse - Plethysmograph Resp SpO2 10/05/19 0935 10/05/19 0935 10/05/19 0935 10/05/19 1046 10/05/19 0932 10/05/19 0935 133/72 36.5 C 81 74 pulses/min 12 100 % Physical Exam Vitals signs and nursing note reviewed. Constitutional: Appearance: He is not toxic-appearing or diaphoretic. Comments: Chronically ill appearing, but in NAD HENT: Head: Normocephalic and atraumatic. Nose: Nose normal. Mouth/Throat: Mouth: Mucous membranes are dry. Pharynx: Oropharynx is clear. Comments: Poor dentition Eyes: General: Right eye: No discharge. Left eye: No discharge. Pupils: Pupils are equal, round, and reactive to light. Neck: Musculoskeletal: Normal range of motion and neck supple. No neck rigidity. Cardiovascular: Rate and Rhythm: Normal rate and regular rhythm. Pulmonary: Effort: Pulmonary effort is normal. No respiratory distress. Breath sounds: Normal breath sounds. No stridor. Abdominal: Palpations: Abdomen is soft. Tenderness: There is no abdominal tenderness. There is no guarding or rebound. Comments: Well healing abdominal incision without erythema or exudate Focal nodule with ecchymosis on the right side of his incision, no expression of fluid with light palpation No erythema, induration, warmth or purulent drainage Musculoskeletal: Normal range of motion. General: No deformity. Right lower leg: Edema present. Left lower leg: Edema present. Skin: General: Skin is warm and dry. Neurological: Mental Status: He is alert and oriented to person, place, and time. Mental status is at baseline. Psychiatric: Mood and Affect: Mood normal. Behavior: Behavior normal. ED COURSE AND MEDICAL DECISION MAKING: Doug Lawson is a 54 y.o. male presenting with malaise. A review of some of the patient s prior medical records was performed using chart review and Care Everywhere. Given the patient's history and exam, initial differential diagnosis includes but is not li mited to pneumonia, viral infection, UTI, abdominal infection, meningitis/encephalitis, hype r ammonemia, medication noncompliance, graft rejection, ingestion, intoxication, uremia. Laboratory, EKG, and imaging results were reviewed and interpreted as pertinent, and notabl e for the following: ED Course as of Oct 05 1839 Mon Oct 05, 2019 1035 Ammonia WNL [LB] 1036 Vital signs are notable for normotension, no tachycardia, no tachypnea, no hypoxemia, afebrile. [LB] 1136 Transplant surgery: evaluated in the ED. They do not believe he has infectious etiolog y. They are having SW to come by to see him. Attending will come by to evaluate. [LB] 1136 UA with red cells, no bacteria. [LB] 1137 CMP with hyperglycemia, Cr elevate but comparable to priors, no other electrolyte abno rmalities. [LB] 1138 CBC with no leukocytosis, normocytic anemia. [LB] 1139 IMPRESSION: Clear lungs. X-RAY PORTABLE CHEST 1 VIEW [LB] 1143 Transplant SW to see [LB] 1351 Respiratory pathogen panel negative [LB] [address] Transplant OK with discharge if Cts are negative. He has follow up with t hem in 5 days. [LB] 1510 IMPRESSION: Since 04/22/2019, interval status post liver transplant with expected postoperative changes. Etiology of the patient's symptoms not identified. CT CHEST, ABDOMEN AND PELVIS WO IV CONTRAST [LB] 1510 IMPRESSION: No acute intracranial findings. CT HEAD WO CONTRAST [LB] 1530 Transplant suggests normal medication regimen this evening. No changes. [LB] ED Course User Index [LB] Nisreen Alvarado MD The patient does not have any apparent infectious etiology based on his evaluation today. No focal opacity on chest x-ray to suggest pneumonia. Urine without leukocyte esterase or n itrites to suggest infection. CT campbell scan without any acute intra-abdominal, intrathoracic or intracranial abnormality. No fever, confusion, neck stiffness to suggest meningitis or e ncephalitis. He denies any acute ingestion or intoxication. No evidence of hyperammonemia to suggest contribution to his malaise. No significant uremia to suggest that as an etiolog y. We discussed the specific importance of taking all of his medications, especially given con cerned that he may have missed a couple of doses. Given his lack of interest in oral intake and difficulty sleeping we elected to prescribe mirtazapine; this was done in conjunction w ith the liver transplant team. There could be an element of depression or anxiety to his malaise, fatigue, lack of interes t in taking medications. The liver transplant team discussed at length with the patient and his mother regarding the social networking and support. They will follow up with him on Fr iday. Discussed this plan with the patient and his mother at bedside. They understood and agreed to this plan. Return precautions given in person and in writing. Given this, we felt patient was stable for discharge. ED Medication Administration from 10/05/2019 0927 to 10/05/2019 1839 None IMPRESSION: Z94.4 Liver transplant status (HCC) D89.9 Immunosuppressed status (HCC) R53.83 Fatigue, unspecified type PLAN, DISPOSITION AND FOLLOW-UP: Plan to discharge the patient. I have discussed with the patient results of workup, indicat ions for return and need for liver transplant team follow up. Return precautions and follow up instructions were also given in writing. Time was provided for questions and the patient' s questions were answered. The patient understands and agrees with the plan, as does his mot her/network program manager. Discharge Medication List as of 10/05/2019 3:37 PM START taking these medications Details mirtazapine 15 mg oral tablet Take 1 tablet by mouth once daily in the evening for 14 days. Indications: lack of appetite, Disp-14 tablet, R-0, Print Prescription Ebony Francois MD, Faculty Note: I saw and evaluated the patient and discussed the diagnosis and management of the patient w ith the resident, Dr. Alvarado. I performed and confirmed the tamez portions of the service. Th is note was completed by both resident and myself using the [employer] [facility] share function. I agree wit h the documentation, findings, and plan of care. Amy Ham RN - 10/05/2019 9:34 AM PSTPt c/o N/V/D. Had headache all week. Now feels like "I got th e flu." documented in this encounter Miscellaneous Notes ED Teaching Notes - Ebony Francois MD - 10/05/2019 3:53 PM PSTRYSHANDRA FRANCOIS MD, Faculty Note: I saw and evaluated the patient and discussed the diagnosis, management, and interpretation of results with the resident, Dr. Alvarado. I performed and confirmed the tamez portions of t he service. I have reviewed and agree with the documentation in the provider note. ransfer Note - Rosio Olmstead RN - 10/05/2019 8:46 AM PSTJudy from Liver Transplant: 08/16 liver tx N V D this morning, cant keep fluids down, hasn't taken immunosuppression this morning. Has borderline kidney function. Sending for eval and fluids omm Center - Megan Estes - 10/05/2019 8:46 AM PSTConnected ref to Rosio (ED charge) C/o N/V/D documented in this encounter Plan of Treatment [...] [address] | | | | | | [place] | | | | | | [address] | | | | | | [phone] | | | | | | | | +--------+ + + + + | 09/27/ | Telephone-S | Liver Transplant | Vimal Crowe MD | | | 2019 | [place] | | [address] | | | | | | [place], | | | | | | [place] [address] | | | | | | [phone] | | | | | | | | +--------+ + + + + | 10/03/ | Appointment | Cardiology | | | | 2019 | | | | | +--------+ + + + + | 10/03/ | Office | Cardiology | Cyril Samuel | | | 2019 | Visit | | MD Patricia [address] | | | | | | [address] | | | | | | [place], [place] | | | | | | [address] | | | | | | [phone] | | | | | | | | +--------+ + + + + + +------+--------+ + + | Name | Type | Priori | Associated Diagnoses | Order Schedule | | | | ty | | | + +------+--------+ + + | TYPE AND SCREEN | Lab | Urgent | | One Time for 1 | | | | | | Occurrences starting | | | | | | 10/05/2019 until | | | | | | 10/05/2019 | + +------+--------+ + + documented as of this encounter Procedures + +--------+ + + + | Procedure Name | Priori | Date/Time | Associated Diagnosis | Comments | | | ty | | | | + +--------+ + + + | CT CHEST, ABDOMEN | Urgent | 10/05/2019 | | Results for this | | AND PELVIS WO IV | | 2:20 PM | | procedure are in the | | CONTRAST | | PST | | results section. | + +--------+ + + + | CT HEAD WO CONTRAST | Urgent | 10/05/2019 | | Results for this | | | | 2:19 PM | | procedure are in the | | | | PST | | results section. | + +--------+ + + + | URINE, MICROSCOPIC | Urgent | 10/05/2019 | | Results for this | | EXAM | | 10:58 AM | | procedure are in the | | | | PST | | results section. | + +--------+ + + + | URINE SCREEN FOR | Urgent | 10/05/2019 | | Results for this | | CULTURE | | 10:58 AM | | procedure are in the | | | | PST | | results section. | + +--------+ + + + | RESPIRATORY PATHOGEN | Urgent | 10/05/2019 | | Results for this | | PANEL PCR | | 10:46 AM | | procedure are in the | | | | PST | | results section. | + +--------+ + + + | X-RAY PORTABLE CHEST | Urgent | 10/05/2019 | | Results for this | | 1 VIEW | | 10:45 AM | | procedure are in the | | | | PST | | results section. | + +--------+ + + + | CULTURE, BLOOD BACTI | Urgent | 10/05/2019 | | Results for this | | & YEAST [facility] | | 10:45 AM | | procedure are in the | | | | PST | | results section. | + +--------+ + + + | CULTURE, BLOOD BACTI | Urgent | 10/05/2019 | | Results for this | | & YEAST [facility] | | 10:45 AM | | procedure are in the | | | | PST | | results section. | + +--------+ + + + | CULTURE, BLOOD BACTI | Urgent | 10/05/2019 | | Results for this | | & YEAST | | 10:45 AM | | procedure are in the | | | | PST | | results section. | + +--------+ + + + | CULTURE, BLOOD BACTI | Urgent | 10/05/2019 | | Results for this | | & YEAST | | 10:45 AM | | procedure are in the | | | | PST | | results section. | + +--------+ + + + | BG-LAC,POC ISTAT | Urgent | 10/05/2019 | | Results for this | | | | 10:38 AM | | procedure are in the | | | | PST | | results section. | + +--------+ + + + | RAINBOW HOLD TUBE - | Urgent | 10/05/2019 | | | | RED TOP | | 10:03 AM | | | | | | PST | | | + +--------+ + + + | CBC AND AUTO DIFF | Urgent | 10/05/2019 | | Results for this | | | | 10:03 AM | | procedure are in the | | | | PST | | results section. | + +--------+ + + + | INR | Urgent | 10/05/2019 | | Results for this | | | | 10:03 AM | | procedure are in the | | | | PST | | results section. | + +--------+ + + + | CBC, WITH | Urgent | 10/05/2019 | | Results for this | | DIFFERENTIAL | | 10:03 AM | | procedure are in the | | | | PST | | results section. | + +--------+ + + + | COMPLETE METABOLIC | Urgent | 10/05/2019 | | Results for this | | SET | | 10:03 AM | | procedure are in the | | (NA,K,CL,CO2,BUN,CRE | | PST | | results section. | | AT,GLUC,CA,AST,ALT,B | | | | | | KEV TOTAL,ALK | | | | | | PHOS,ALB,PROT TOTAL) | | | | | + +--------+ + + + | ANTIBODY SCREEN | Routin | 10/05/2019 | | Results for this | | | e | 10:03 AM | | procedure are in the | | | | PST | | results section. | + +--------+ + + + | BLOOD BANK HOLD TUBE | Urgent | 10/05/2019 | | Results for this | | - DON | | 10:03 AM | | procedure are in the | | | | PST | | results section. | | T PROCESS | | | | | + +--------+ + + + | ABO & RH TYPE | Routin | 10/05/2019 | | Results for this | | | e | 10:03 AM | | procedure are in the | | | | PST | | results section. | + +--------+ + + + | AMMONIA, PLASMA | Urgent | 10/05/2019 | | Results for this | | | | 10:03 AM | | procedure are in the | | | | PST | | results section. | + +--------+ + + + | ED INFORMATION | Routin | 10/05/2019 | | Results for this | | EXCHANGE | e | 9:28 AM | | procedure are in the | | | | PST | | results section. | + +--------+ + + + documented in this encounter Results CT CHEST, ABDOMEN AND PELVIS WO IV CONTRAST (10/05/2019 2:20 PM PST) + + | Specimen | + + | | + + + + + | Narrative | Performed At | + + + | EXAM: CT of the chest, abdomen and pelvis without intravenous | [facility] | | contrast. HISTORY: Liver transplant on 08/16/2019. Lethargy, | RADIOLOGY VOICE | | concern for acute process COMPARISON: 05/19/2019 CT abdomen pelvis | RECOGNITION 2 | | TECHNIQUE: CT of the chest, abdomen and pelvis without | | | intravenous contrast. Coronal and sagittal reformats were generated | | | and created. FINDINGS: Lack of intravenous contrast limits | | | evaluation of the solid organs and vasculature. CHEST: No enlarged | | | axillary, hilar, or mediastinal lymph nodes. No pleural or | | | pericardial effusion. Cardiomegaly. Tiny pericardial effusion. Trace | | | right pleural effusion. Minimal atelectasis in the lower lobes. | | | LIVER: Interval status post liver transplant, which has an | | | unremarkable unenhanced appearance. BILIARY: Cholecystectomy. Small | | | amount of expected fluid and stranding in the postcholecystectomy bed. | | | PANCREAS: Atrophic. SPLEEN: Enlarged, measuring 16.5 cm in | | | craniocaudal dimension, previously 18.0 cm. ADRENALS: | | | Nodularity/thickening of the right adrenal gland now seen, which may | | | be from evolving postoperative hemorrhage. KIDNEYS/URETERS: | | | Nonobstructing left renal stone versus parenchymal calcification with | | | overlying cortical thinning. No hydronephrosis. Mild nonspecific | | | bilateral perinephric stranding. PELVIC ORGANS/BLADDER: Unremarkable. | | | GI TRACT: Normal appendix. Decompression of much of the colon. | | | Bowel loops are nondilated. PERITONEUM: Mild mesenteric edema. Trace | | | perihepatic ascites. LYMPH NODES: No lymphadenopathy. VESSELS: | | | Unremarkable. BONES AND SOFT TISSUES: Chronic compression | | | deformity of the T11 and T12 vertebral bodies and chronic superior | | | endplate compression deformity of the L3 vertebral body. Congenital | | | bilateral L5 pars defects with grade 1 anterolisthesis at L5-S1. Small | | | amount of loculated hyperdense fluid in the right upper anterior | | | abdominal wall, compatible with a postoperative hematoma. Bilateral | | | gynecomastia. IMPRESSION: Since 04/22/2019, interval status post | | | liver transplant with expected postoperative changes. Etiology of the | | | patient's symptoms not identified. Availability of noncritical | | | results conveyed to hearing aid repair technician at 2:33 PM on 10/05/2019. I have | | | personally reviewed the images and, if necessary, edited the report. I | | | agree with the report as now presented. Final signature: Asya Merino MD 10/05/2019 2:38 PM Preliminary: Asya Merino MD Dictation initiated: Asya Merino MD | | | 10/05/2019 2:17 PM | | + + + + + | Procedure Note | + + | Service Account, Radiant Res In Interface - 10/05/2019 2:39 PM PST EXAM: CT of the | | chest, abdomen and pelvis without intravenous contrast. HISTORY: Liver transplant on | | 08/16/2019. Lethargy, concern for acute process COMPARISON: 05/19/2019 CT abdomen pelvis | | TECHNIQUE: CT of the chest, abdomen and pelvis without intravenous contrast. Coronal | | and sagittal reformats were generated and created. FINDINGS: Lack of intravenous | | contrast limits evaluation of the solid organs and vasculature. CHEST: No enlarged | | axillary, hilar, or mediastinal lymph nodes. No pleural or pericardial effusion. | | Cardiomegaly. Tiny pericardial effusion. Trace right pleural effusion. Minimal | | atelectasis in the lower lobes. LIVER: Interval status post liver transplant, which has | | an unremarkable unenhanced appearance.BILIARY: Cholecystectomy. Small amount of expected | | fluid and stranding in the postcholecystectomy bed.PANCREAS: Atrophic. SPLEEN: | | Enlarged, measuring 16.5 cm in craniocaudal dimension, previously 18.0 cm.ADRENALS: | | Nodularity/thickening of the right adrenal gland now seen, which may be from evolving | | postoperative hemorrhage.KIDNEYS/URETERS: Nonobstructing left renal stone versus | | parenchymal calcification with overlying cortical thinning. No hydronephrosis. Mild | | nonspecific bilateral perinephric stranding.PELVIC ORGANS/BLADDER: Unremarkable. GI | | TRACT: Normal appendix. Decompression of much of the colon. Bowel loops are | | nondilated.PERITONEUM: Mild mesenteric edema. Trace perihepatic ascites. LYMPH NODES: No | | lymphadenopathy.VESSELS: Unremarkable. BONES AND SOFT TISSUES: Chronic compression | | deformity of the T11 and T12 vertebral bodies and chronic superior endplate compression | | deformity of the L3 vertebral body. Congenital bilateral L5 pars defects with grade 1 | | anterolisthesis at L5-S1. Small amount of loculated hyperdense fluid in the right upper | | anterior abdominal wall, compatible with a postoperative hematoma. Bilateral | | gynecomastia. IMPRESSION: Since 04/22/2019, interval status post liver transplant with | | expected postoperative changes. Etiology of the patient's symptoms not identified. | | Availability of noncritical results conveyed to hearing aid repair technician at 2:33 PM on 10/05/2019. I have | | personally reviewed the images and, if necessary, edited the report. I agree with the | | report as now presented. Final signature: Asya Merino MD 10/05/2019 2:38 PM | | Preliminary: Asya Merino MD Dictation initiated: Asya Merino MD | | 10/05/2019 2:17 PM | |IMPRESSION: | |Since 04/22/2019, interval status post liver transplant with expected postoperative changes. Etiology of the patient's symptoms not identified. | | | |Availability of noncritical results conveyed to hearing aid repair technician at 2:33 PM on 10/05/2019. | | | |I have personally reviewed the images and, if necessary, edited the report. I agree with th e report as now presented. | | | |Final signature: Asya Merino MD 10/05/2019 2:38 PM | |Preliminary: Asya Merino MD | |Dictation initiated: Asya Merino MD 10/05/2019 2:17 PM | + + + +---------+ + + | Performing | Address | City/State/Zipcode | Phone Number | | Organization | | | | + +---------+ + + | [facility] | | | | | VOICE RECOGNITION 2 | | | | + +---------+ + + CT HEAD WO CONTRAST (10/05/2019 2:19 PM PST) + + | Specimen | + + | | + + + + + | Narrative | Performed At | + + + | EXAM: CT HEAD WITHOUT CONTRAST HISTORY: s/p transplant, | [facility] | | lethargy, evaluate for acute process COMPARISON: External head | RADIOLOGY VOICE | | CT 07/17/2019. TECHNIQUE: CT of the head without intravenous | RECOGNITION 2 | | contrast. FINDINGS: BRAIN: No acute intracranial abnormality. | | | No evidence of hemorrhage, mass, or acute territorial infarction. | | | The ventricles are normal in size and morphology. SOFT TISSUES: | | | Unremarkable. SKULL AND SKULL BASE: No fractures . Mastoids and | | | middle ears are unremarkable. FACE/ORBITS: Visualized portions are | | | unremarkable. PARANASAL SINUSES: Tiny bilateral maxillary sinus | | | mucosal retention cysts. Moderate left-sided septal deviation. | | | IMPRESSION: No acute intracranial findings. I have personally | | | reviewed the images and, if necessary, edited the report. I agree with | | | the report as now presented. Final signature: Cindy Ramirez | | | 10/05/2019 2:45 PM Preliminary: Satya Bennett MD | | | Dictation initiated: Satya Bennett MD 10/05/2019 2:26 PM | | + + + + + | Procedure Note | + + | Service Account, BareedEE Res In Interface - 10/05/2019 2:46 PM PST EXAM: CT HEAD | | WITHOUT CONTRAST HISTORY: s/p transplant, lethargy, evaluate for acute process | | COMPARISON: External head CT 07/17/2019. TECHNIQUE: CT of the head without intravenous | | contrast. FINDINGS: BRAIN: No acute intracranial abnormality. No evidence of | | hemorrhage, mass, or acute territorial infarction. The ventricles are normal in size | | and morphology. SOFT TISSUES: Unremarkable.SKULL AND SKULL BASE: No fractures . Mastoids | | and middle ears are unremarkable.FACE/ORBITS: Visualized portions are | | unremarkable.PARANASAL SINUSES: Tiny bilateral maxillary sinus mucosal retention cysts. | | Moderate left-sided septal deviation. IMPRESSION:No acute intracranial findings. I have | | personally reviewed the images and, if necessary, edited the report. I agree with the | | report as now presented. Final signature: Cindy Ramirez MD 10/05/2019 2:45 PM | | Preliminary: Satya Bennett MD Dictation initiated: Satya Bennett MD 10/05/2019 | | 2:26 PM | |SKULL AND SKULL BASE: No fractures . Mastoids and middle ears are unremarkable. | |FACE/ORBITS: Visualized portions are unremarkable. | |PARANASAL SINUSES: Tiny bilateral maxillary sinus mucosal retention cysts. Moderate left-si ded septal deviation. | | | |IMPRESSION: | |No acute intracranial findings. | | | |I have personally reviewed the images and, if necessary, edited the report. I agree with th e report as now presented. | | | |Final signature: Cindy Ramirez MD 10/05/2019 2:45 PM | |Preliminary: Satya Bennett MD | |Dictation initiated: Satya Bennett MD 10/05/2019 2:26 PM | + + + +---------+ + + | Performing | Address | City/State/Zipcode | Phone Number | | Organization | | | | + +---------+ + + | [facility] | | | | | VOICE RECOGNITION 2 | | | | + +---------+ + + URINE, MICROSCOPIC EXAM (10/05/2019 10:58 AM PST) + +--------+ + + + | Component | Value | Ref Range | Performed | Pathologist | | | | | At | Signature | + +--------+ + + + | RED CELLS | 19 (H) | 0 - 3 /hpf | [facility] | | | | | | LABORATORY | | | | | | SERVICES, | | | | | | CORE | | + +--------+ + + + | WHITE CELLS | <1 | 0 - 5 /hpf | [facility] | | | | | | LABORATORY | | | | | | SERVICES, | | | | | | CORE | | + +--------+ + + + | BACTERIA | None | None /hpf | [facility] | | | | | | LABORATORY | | | | | | SERVICES, | | | | | | CORE | | + +--------+ + + + | YEAST (LAB) | None | None /hpf | [facility] | | | | | | LABORATORY | | | | | | SERVICES, | | | | | | CORE | | + +--------+ + + + | SQUAMOUS | None | None, Few /hpf | [facility] | | | EPITHELIAL | | | LABORATORY | | | | | | SERVICES, | | | | | | CORE | | + +--------+ + + + | MUCOUS | None | None, Few /hpf | [facility] | | | | | | LABORATORY | | | | | | SERVICES, | | | | | | CORE | | + +--------+ + + + | NON-SQUAMOU | None | None /hpf | [facility] | | | S EPITH | | | LABORATORY | | | | | | SERVICES, | | | | | | CORE | | + +--------+ + + + | HYALINE | 1 | 0 - 2 /lpf | [facility] | | | CASTS | | | LABORATORY | | | | | | SERVICES, | | | | | | CORE | | + +--------+ + + + | GRANULAR | 0 | 0 - 2 /lpf | [facility] | | | CASTS | | | LABORATORY | | | | | | SERVICES, | | | | | | CORE | | + +--------+ + + + | CELLULAR | 0 | <=0 /lpf | [facility] | | | CASTS | | | LABORATORY | | | | | | SERVICES, | | | | | | CORE | | + +--------+ + + + | TRIPLE P04 | None | None, Few /hpf | [facility] | | | CRYSTALS | | | LABORATORY | | | | | | SERVICES, | | | | | | CORE | | + +--------+ + + + | CALCIUM | None | None, Few /hpf | [facility] | | | OXALATE | | | LABORATORY | | | RAMÓN | | | SERVICES, | | | | | | CORE | | + +--------+ + + + | URIC ACID | None | None, Few /hpf | [facility] | | | CRYSTALS | | | LABORATORY | | | | | | SERVICES, | | | | | | CORE | | + +--------+ + + + | AMORPHOUS | None [...] [facility] | [address] | [place] [address] | | | SERVICES, CORE | [address] | | | + + + + + URINE SCREEN FOR CULTURE (10/05/2019 10:58 AM PST) + + + + + [...] Culture Screen Negative. Culture not indicated. | [facility] | | | LABORATORY | | | SERVICES, CORE | + + + + + + + + | Performing | Address | City/State/Zipcode | Phone Number | | Organization | | | | + + + + + | [facility] | [address] | [place] [address] | | | SERVICES, CORE | [address] | | | + + + + + RESPIRATORY PATHOGEN PANEL PCR (10/05/2019 10:46 AM PST) + + + + + + | Component | Value | Ref Range | Performed | Pathologist | | | | | At | Signature | + + + + + + | ADENOVIRUS | Not Detected | Not Detected | [facility] | | | PCR | | | LABORATORY | | | | | | SERVICES, | | | | | | CORE | | + + + + + + | CORONAVIRUS | Not Detected | Not Detected | [facility] | | | 229E PCR | | | LABORATORY | | | | | | SERVICES, | | | | | | CORE | | + + + + + + | CORONAVIRUS | Not Detected | Not Detected | [facility] | | | HKU1 PCR | | | LABORATORY | | | | | | SERVICES, | | | | | | CORE | | + + + + + + | CORONAVIRUS | Not Detected | Not Detected | [facility] | | | NL63 PCR | | | LABORATORY | | | | | | SERVICES, | | | | | | CORE | | + + + + + + | CORONAVIRUS | Not Detected | Not Detected | [facility] | | | OC43 PCR | | | LABORATORY | | | | | | SERVICES, | | | | | | CORE | | + + + + + + | METAPNEUMOV | Not Detected | Not Detected | [facility] | | | IRUS PCR | | | LABORATORY | | | | | | SERVICES, | | | | | | CORE | | + + + + + + | RHINOVIRUS/ | Not Detected | Not Detected | [facility] | | | ENTEROVIRUS | | | LABORATORY | | | PCR | | | SERVICES, | | | | | | CORE | | + + + + + + | INFLUENZA A | Not Detected | Not Detected | [facility] | | | PCR | | | LABORATORY | | | | | | SERVICES, | | | | | | CORE | | + + + + + + | INFLUENZA A | Not Detected | Not Detected | [facility] | | | SUBTYPE H1 | | | LABORATORY | | | PCR | | | SERVICES, | | | | | | CORE | | + + + + + + | INFLUENZA A | Not Detected | Not Detected | [facility] | | | H1-2008 | | | LABORATORY | | | PCR | | | SERVICES, | | | | | | CORE | | + + + + + + | INFLUENZA A | Not Detected | Not Detected | [facility] | | | H3 PCR | | | LABORATORY | | | | | | SERVICES, | | | | | | CORE | | + + + + + + | INFLUENZA B | Not Detected | Not Detected | [facility] | | | PCR | | | LABORATORY | | | | | | SERVICES, | | | | | | CORE | | + + + + + + | PARAINFLUEN | Not Detected | Not Detected | [facility] | | | ZA 1 PCR | | | LABORATORY | | | | | | SERVICES, | | | | | | CORE | | + + + + + + | PARAINFLUEN | Not Detected | Not Detected | [facility] | | | ZA 2 PCR | | | LABORATORY | | | | | | SERVICES, | | | | | | CORE | | + + + + + + | PARAINFLUEN | Not Detected | Not Detected | [facility] | | | ZA 3 PCR | | | LABORATORY | | | | | | SERVICES, | | | | | | CORE | | + + + + + + | PARAINFLUEN | Not Detected | Not Detected | [facility] | | | ZA 4 PCR | | | LABORATORY | | | | | | SERVICES, | | | | | | CORE | | + + + + + + | RSV PCR | Not Detected | Not Detected | [facility] | | | | | | LABORATORY | | | | | | SERVICES, | | | | | | CORE | | + + + + + + | BORDETELLA | Not Detected | Not Detected | [facility] | | | PERTUSSIS | | | LABORATORY | | | PCR | | | SERVICES, | | | | | | CORE | | + + + + + + | CHLAMYDOPHI | Not Detected | Not Detected | [facility] | | | LA | | | LABORATORY | | | PNEUMONIAE | | | SERVICES, | | | PCR | | | CORE | | + + + + + + | MYCOPLASMA | Not Detected | Not Detected | [facility] | | | PNEUMONIAE | | | LABORATORY | | | PCR | | | SERVICES, | | | | | | CORE | | + + + + + + + + | Specimen | + + | Swab - Nasopharynx | + + + + + + + | Performing | Address | City/State/Zipcode | Phone Number | | Organization | | | | + + + + + | [facility] | [address] | [place] [address] | | | SERVICES, CORE | [address] | | | + + + + + X-RAY PORTABLE CHEST 1 VIEW (10/05/2019 10:45 AM PST) + + | Specimen | + + | | + + + + + | Narrative | Performed At | + + + | EXAM: MD CHEST 1 VIEW HISTORY: cough, malaise, | [facility] | | immunosuppression, evaluate for infection COMPARISON: 08/22/2019 | RADIOLOGY VOICE | | FINDINGS: The cardiomediastinal contour is stable. The lungs | RECOGNITION 2 | | are clear. No focal consolidation. There is no pleural effusion or | | | pneumothorax. There is no pulmonary edema. No acute osseous | | | abnormality. IMPRESSION: Clear lungs. I have personally | | | reviewed the images and, if necessary, edited the report. I agree with | | | the report as now presented. Final signature: Carin Islas | | | 10/05/2019 11:36 AM Preliminary: Myra Machado MD | | | Dictation initiated: Myra Machado MD 10/05/2019 11:06 AM | | + + + + --------+ | Procedure Note | + --------+ | Service Account, Radiant Res In Interface - 10/05/2019 11:37 AM PST EXAM: MD CHEST 1 | | VIEW HISTORY: cough, malaise, immunosuppression, evaluate for infection COMPARISON: | | 08/22/2019 FINDINGS: The cardiomediastinal contour is stable. The lungs are clear. No | | focal consolidation. There is no pleural effusion or pneumothorax. There is no pulmonary | | edema. No acute osseous abnormality. IMPRESSION: Clear lungs. I have personally | | reviewed the images and, if necessary, edited the report. I agree with the report as now | | presented. Final signature: Carin Islas MD 10/05/2019 11:36 AM Preliminary: | | Myra Machado MD Dictation initiated: Myra Machado MD 10/05/2019 11:06 AM | |The cardiomediastinal contour is stable. The lungs are clear. No focal consolidation. There is no pleural effusion or pneumothorax. There is no pulmonary edema. No acute osseous abnor mality. | | | |IMPRESSION: | | | |Clear lungs. | | | |I have personally reviewed the images and, if necessary, edited the report. I agree with th e report as now presented. | | | |Final signature: Carin Islas MD 10/05/2019 11:36 AM | |Preliminary: Myra Machado MD | |Dictation initiated: Myra Machado MD 10/05/2019 11:06 AM | + --------+ + +---------+ + + | Performing | Address | City/State/Zipcode | Phone Number | | Organization | | | | + +---------+ + + | [facility] | | | | | VOICE RECOGNITION 2 | | | | + +---------+ + + CULTURE, BLOOD BACTI & YEAST [facility] (10/05/2019 10:45 AM PST) + + + + + [...] | + + + + + | [facility] | [address] | [place] [address] | | | SERVICES, ARTIS | [address] | | | + + + + + CULTURE, BLOOD BACTI & YEAST [facility] (10/05/2019 10:45 AM PST) + + + + + [...] | + + + + + | [facility] | [address] | [place] [address] | | | SERVICES, CORE | [address] | | | + + + + + BG-LAC,POC ISTAT (10/05/2019 10:38 AM PST) + + + + + + | Component | Value | Ref Range | Performed | Pathologist | | | | | At | Signature | + + + + + + | TOTAL CO2 | 32 (H) | 23 - 29 mmol/L | [facility] - | | | [facility], POC | | | [facility] | | | | | | [facility] | | | | | | OF CARE | | | | | | TESTS | | + + + + + + | PH VENOUS, | 7.33 (L) | 7.35 - 7.45 | [facility] - | | | POC | | | [facility] | | | | | | [facility] | | | | | | OF CARE | | | | | | TESTS | | + + + + + + | PCO2 | 57 (H) | 35 - 50 mmHg | [facility] - | | | VENOUS, POC | | | [facility] | | | | | | [facility] | | | | | | OF CARE | | | | | | TESTS | | + + + + + + | HCO3 | 30 (H) | 22 - 28 mmol/L | [facility] - | | | VENOUS, POC | | | [facility] | | | | | | [facility] | | | | | | OF CARE | | | | | | TESTS | | + + + + + + | PO2 VENOUS, | <41 | 30 - 55 mmHg | [facility] - | | | POC | | | [facility] | | | | | | [facility] | | | | | | OF CARE | | | | | | TESTS | | + + + + + + | O2 SAT | 59 | 95 - 98 % | [facility] - | | | VENOUS, POC | | | [facility] | | | | | | [facility] | | | | | | OF CARE | | | | | | TESTS | | + + + + + + | LACTATE | 0.7 | 0.5 - 2.2 | [facility] - | | | VENOUS, POC | | mmol/L | [facility] | | | | | | [facility] | | | | | | OF CARE | | | | | | TESTS | | + + + + + + | PAT TEMP | 36.5 | | [facility] - | | | VENOUS,POC | | | [facility] | | | | | | [facility] | | | | | | OF CARE | | | | | | TESTS | | + + + + + + | BASE EXCESS | 4.0 | -2 - 3 mmol/L | [facility] - | | | [facility], POC | | | [facility] | | [...] + + + | [facility] | [address] | [place], [place] | | | [facility] | [address] | [phone] | | | TESTS | | | | + + + + + ANTIBODY SCREEN (10/05/2019 10:03 AM PST) + + + + + [...] [facility] | [address] | [place] [address] | | | SERVICES, | [address] | | | | TRANSFUSION MEDICINE | | | | + + + + + ABO & RH TYPE (10/05/2019 10:03 AM PST) + + + + + [...] | + + + + + | [facility] | [address] | [place] [address] | | | SERVICES, | [address] | | | | TRANSFUSION MEDICINE | | | | + + + + + CBC AND AUTO DIFF (10/05/2019 10:03 AM PST) + + + + + [...] + + + | RED CELL | 3.91 (L) | 4.50 - 6.00 | [facility] | | | COUNT | | M/cu mm | LABORATORY | | | | | | SERVICES, | | | | | | CORE | | + + + + + + | HEMOGLOBIN | 11.4 (L) | 13.5 - 17.5 | [facility] | | | | | g/dL | LABORATORY | | | | | | SERVICES, | | | | | | CORE | | + + + + + + | HEMATOCRIT | 36.4 (L) | 41.0 - 53.0 % | [facility] | | | | | | LABORATORY | | | | | | SERVICES, | | | | | | CORE | | + + + + + + | MCV | 93.1 | 80.0 - 100.0 fL | [facility] | | | | | | LABORATORY | | | | | | SERVICES, | | | | | | CORE | | + + + + + + | MCHC | 31.3 (L) | 32.0 - 36.0 | [facility] | | | | | g/dL | LABORATORY | | | | | | SERVICES, | | | | | | CORE | | + + + + + + | RDW SD | 49.6 (H) | 35.1 - 46.3 fL | [facility] | | | | | | LABORATORY | | | | | | SERVICES, | | | | | | CORE | | + + + + + + | PLATELET | 120 (L)Comment: | 150 - 400 K/cu | [...] + + + + | LYMPHOCYTE | 17.1 (L) | 18.0 - 42.0 % | [facility] | | | % | | | LABORATORY | | | | | | SERVICES, | | | | | | CORE | | + + + + + + | MONOCYTE % | 4.2 | 3.5 - 9.0 % | [facility] | | | | | | LABORATORY | | | | | | SERVICES, | | | | | | CORE | | + + + + + + | EOS % | 1.3 | 1.0 - 3.0 % | [facility] [...] + + + + | NEUTROPHIL | 3.63 | 1.80 - 7.70 | [facility] | [...] + + + | MONOCYTE # | 0.20 | 0.10 - 0.90 | [facility] | | | | | K/cu mm | LABORATORY | | | | | | SERVICES, | | | | | | CORE | | + + + + + + | EOS # | 0.06 | 0.00 - 0.50 | [facility] | [...] | + + + + + | [facility] | [address] | [place] [address] | | | SERVICES, CORE | [address] | | | + + + + + BLOOD BANK HOLD TUBE - DON T PROCESS (10/05/2019 10:03 AM PST) + + + + + + | Component | Value | Ref Range | Performed | Pathologist | | | | | At | Signature | + + + + + + | SPECIMEN | Sample received with | | [facility] | | | COLLECTED, | adeq label/volume to | | LABORATORY | | | HELD | process | | SERVICES, | | | | [...] [facility] | [address] | [place] [address] | | | SERVICES, | [address] | | | | TRANSFUSION MEDICINE | | | | + + + + + RAINBOW HOLD TUBE - RED TOP (10/05/2019 10:03 AM PST) + + | Specimen | + + | Blood - Blood | | (substance) | + + + + + + + | Performing | Address | City/State/Zipcode | Phone Number | | Organization | | | | + + + + + | [facility] | [address] | [place] [address] | | | SERVICES, CORE | [address] | | | + + + + + AMMONIA, PLASMA (10/05/2019 10:03 AM PST) + +---------+ + + + | Component | Value | Ref Range | Performed | Pathologist | | | | | At | Signature | + +---------+ + + + | AMMONIA | <10 (L) | 11 - 35 umol/L | [facility] | | | (LAB) | [...] [facility] | [address] | [place] [address] | | | SERVICES, CORE | [address] | | | + + + + + INR (10/05/2019 10:03 AM PST) + +-------+ + + + | Component | Value | Ref Range | Performed | Pathologist | | | | | At | Signature | + +-------+ + + + | INR | 1.07 | 0.90 - 1.20 INR | [facility] [...] | + + + + + | [facility] | [address] | [place] [address] | | | SERVICES, ARTIS | [address] | | | + + + + + COMPLETE METABOLIC SET (NA,K,CL,CO2,BUN,CREAT,GLUC,CA,AST,ALT,BILI TOTAL,ALK PHOS,ALB,PROT TOTAL) (10/05/2019 10:03 AM PST) + + + + + + | Component | Value | Ref Range | Performed | Pathologist | | | | | At | Signature | + + + + + + | GLUCOSE, | 237 (H) | 70 - 99 mg/dL | [facility] | | | PLASMA | | | LABORATORY | | | (LAB) | | | SERVICES, | | | | | | CORE | | + + + + + + | BUN, PLASMA | 44 (H) | 6 - 20 mg/dL | [facility] | | | (LAB) | | | LABORATORY | | | | | | SERVICES, | | | | | | CORE | | + + + + + + | CREATININE | 1.66 (H) | 0.70 - 1.30 | [facility] | | | PLASMA | | mg/dL | LABORATORY | | | (LAB) | | | SERVICES, | | | | | | CORE | | + + + + + + | EGFR | 52 (L) | >60 mL/min | [facility] | | | - | | | LABORATORY | | | [place] | | | SERVICES, | | | [...] + + + | TOTAL | 7.7 | 6.4 - 8.2 g/dL | [facility] | | | PROTEIN, | | | LABORATORY | | | PLASMA | | | SERVICES, | | | (LAB) | | | CORE | | + + + + + + | ALBUMIN, | 4.6 | 3.5 - 4.7 g/dL | [facility] | | | PLASMA | | | LABORATORY | | | (LAB) | | | SERVICES, | | | | | | CORE | | + + + + + + | ALK PHOS | 80 | 53 - 128 U/L | [facility] [...] + + + | ALT (SGPT) | 24 | <=60 U/L | [facility] | | [...] MDRD equation recommended by the National | [facility] | | Kidney Disease Education Program. [...] | + + + + + | [facility] | [address] | [place] [address] | | | SERVICES, [facility] [place] | [address] | | | + + + + + ED INFORMATION EXCHANGE (10/05/2019 9:28 AM PST) + + | Specimen | + + | | + + + + + | Narrative | Performed At | + + + | COLLECTIVE?NOTIFICATION?10/05/2019 09:27?DOUG LAWSON?MRN: | [facility] | | [id number] Criteria Met [facility] Security and Safety No | MEDICAL | | recent Security Events currently on file ED Care Guidelines There | [employer] | | are currently no ED Care Guidelines for this patient. Please check | | | your facility's medical records system. Prescription Drug | | | Report (12 Mo.) Rx Details Fill Date Drug Description Qty. | | | Prescriber CS MED 2019-09-04 OXYCODONE HCL 5 MG TABLET 10 [facility] | | | SELLS 2 15 2019-08-29 OXYCODONE HCL 5 MG TABLET 10 [facility] [place] [facility] 2 | | | 15 Rx Summary Metric Count CS II-V Rx 2 CS-II Rx 2 | | | Quantity Dispensed 20 Unique Prescribers 2 Unique Pharmacies 1 | | | Benzos 0 Opioids 2 Long Acting Opioids 0 E.D. Visit | | | Count (12 mo.) Facility Visits [facility] 1 [place] | | | [facility] 2 Total 3 Note: Visits indicate | | | total known visits. Recent Emergency Department Visit Summary | | | Date Facility City State Type Diagnoses or Chief Complaint Oct 05, | | | 2018 [facility] [place] Emergency | | | 10,800. referral Jul 17, 2019 [facility]. [place] | | | Emergency CONFUSED Hepatic failure, unspecified without | | | coma Alcoholic cirrhosis of liver with ascites Coagulation | | | defect, unspecified Apr 21, 2019 [facility] | | | [place] Emergency 10,800. AMR 303 18,400. | | | Chronic kidney disease, unspecified 18,400. Hepatorenal syndrome | | | 18,400. Alcoholic cirrhosis of liver with ascites 18,400. | | | Paroxysmal atrial fibrillation 18,400. Supraventricular | | | tachycardia Recent Inpatient Visit Summary Date Facility | | | City State Type Diagnoses or Chief Complaint Jul 17, 2019 [place] | | | [facility] [place] Nephrology 10,151. | | | liver failure and AMS 18,400. Alcoholic cirrhosis of liver with | | | ascites 18,400. Supraventricular tachycardia 18,400. 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 Internal Medicine | | | 18,400. Alcoholic cirrhosis of liver with ascites 18,400. | | | Supraventricular tachycardia 18,400. Hepatorenal syndrome | | | 18,400. Chronic kidney disease, unspecified 18,400. Paroxysmal | | | atrial fibrillation Jan 12, [address] [facility] [place]. [place] | | | Observation Anemia, unspecified Nicotine dependence, | | | chewing tobacco, uncomplicated Hepatic failure, unspecified | | | without coma Alcoholic cirrhosis of liver without ascites | | | Hypersplenism Other snf (current) drug therapy 1 | | | Chronic kidney disease, stage 3 (moderate) Other pancytopenia | | | Allergy status to other antibiotic agents status Care | | | Team There is not a care team on record at this time. [facility] | | | Portal This patient has registered at the [facility] | | | [place] [facility] For more information visit: | | | [email or web address] | | | [email or web address] PLEASE NOTE: 1. Any care recommendations and | | | other clinical information are provided as guidelines or for | | | historical purposes only, and providers should exercise their own | | | clinical judgment when providing care. 2. You may only use this | | | information for purposes of treatment, payment or health care | | | operations activities, and subject to the limitations of applicable | | | Collective Policies. 3. You should consult directly with the | | | organization that provided a care guideline or other clinical | | | history with any questions about additional information or accuracy | | | or completeness of information provided. ? 2019 [employer] | | | [employer] - [email or web address] | | + + + + + | Procedure Note | + + | Service Account, Rtf Results Inbound - 10/05/2019 9:30 AM PST Formatting of this | | note might be different from the original.COLLECTIVE?NOTIFICATION?10/05/2019 | | 09:27?DOUG LAWSON? Met PDMPSecurity and SafetyNo recent | | Security Events currently on fileED Care GuidelinesThere are currently no ED Care | | Guidelines for this patient. Please check your facility's medical records | | system.Prescription Drug Report (12 Mo.)Rx DetailsFill Date Drug Description Qty. | | Prescriber CS MED 2019-09-04 OXYCODONE HCL 5 MG TABLET 10 [facility] SELLS 2 2019-08-29 | | OXYCODONE HCL 5 MG TABLET 10 [facility] [place] 2 15 Rx SummaryMetric Count CS II-V Rx 2 | | CS-II Rx 2 Quantity Dispensed 20 Unique Prescribers 2 Unique Pharmacies 1 Benzos 0 | | Opioids 2 Long Acting Opioids 0 E.D. Visit Count (12 mo.)Facility Visits [facility] | | Health 1 [facility] 2 Total 3 Note: Visits indicate total | | known visits. Recent Emergency Department Visit SummaryDate Facility [facility] State Type | | Diagnoses or Chief Complaint Oct 05, 2019 [facility] [place] | | Emergency 10,800. referral Jul 17, 2019 [facility] [place]. [place] Emergency | | CONFUSED Hepatic failure, unspecified without coma Alcoholic cirrhosis of liver | | with ascites Coagulation defect, unspecified Apr 21, 2019 [facility] | | [place] Emergency 10,800. AMR 303 18,400. Chronic kidney disease, | | unspecified 18,400. Hepatorenal syndrome 18,400. Alcoholic cirrhosis of liver with | | ascites 18,400. Paroxysmal atrial fibrillation 18,400. Supraventricular | | tachycardia Recent Inpatient Visit SummaryDate Facility [facility] State Type Diagnoses or | | Chief Complaint Jul 17, 2019 [facility] [place] Nephrology | | 10,151. liver failure and AMS 18,400. Alcoholic cirrhosis of liver with ascites | | 18,400. Supraventricular tachycardia 18,400. Diabetes due to underlying condition w | | oth complication Apr 21, 2019 [facility] [place] Internal | | Medicine 18,400. Alcoholic cirrhosis of liver with ascites 18,400. | | Supraventricular tachycardia 18,400. Hepatorenal syndrome 18,400. Chronic kidney | | disease, unspecified 18,400. Paroxysmal atrial fibrillation Jan 12, [address] [facility] [facility] [place] Observation Anemia, unspecified Nicotine dependence, chewing | | tobacco, uncomplicated Hepatic failure, unspecified without coma Alcoholic | | cirrhosis of liver without ascites Hypersplenism Other intermediate teacher (current) drug | | therapy 1 Chronic kidney disease, stage 3 (moderate) Other pancytopenia Allergy | | status to other antibiotic agents status Care TeamThere is not a care team on record | | at this time. Lisa Kamara patient has registered at the [facility] and | | [facility] Emergency Department For more information visit: | | [email or web address] PLEASE | | NOTE: 1. Any care recommendations and other clinical information are provided as | | guidelines or for historical purposes only, and providers should exercise their own | | clinical judgment when providing care. 2. You may only use this information for | | purposes of treatment, payment or health care operations activities, and subject to the | | limitations of applicable Collective Policies. 3. You should consult directly with | | the organization that provided a care guideline or other clinical history with any | | questions about additional information or accuracy or completeness of information | | provided.? 2019 [email or web address] | |Oct 05, 2019 [facility] [place] Emergency | | 10,800. referral | | | |Jul 17, 2019 [facility]. [place] Emergency | | CONFUSED | | Hepatic failure, unspecified without coma | | Alcoholic cirrhosis of liver with ascites | | Coagulation defect, unspecified | | | |Apr 21, 2019 [facility] [place] Emergency | | 10,800. AMR 303 | | 18,400. Chronic kidney disease, unspecified | | 18,400. Hepatorenal syndrome | | 18,400. Alcoholic cirrhosis of liver with ascites | | 18,400. Paroxysmal atrial fibrillation | | 18,400. Supraventricular tachycardia | | | | | | | |Recent Inpatient Visit Summary | |Date Facility City State Type Diagnoses or Chief Complaint | |Jul 17, 2019 [facility] [place] Nephrology | | 10,151. liver failure and AMS | | 18,400. Alcoholic cirrhosis of liver with ascites | | 18,400. Supraventricular tachycardia | | 18,400. 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 Internal Medicine | | 18,400. Alcoholic cirrhosis of liver with ascites | | 18,400. Supraventricular tachycardia | | 18,400. Hepatorenal syndrome | | 18,400. Chronic kidney disease, unspecified | | 18,400. Paroxysmal atrial fibrillation | | | |Jan 12, [address] [facility] [place] Observation | | Anemia, unspecified | | Nicotine dependence, chewing tobacco, uncomplicated | | Hepatic failure, unspecified without coma | | Alcoholic cirrhosis of liver without ascites | | Hypersplenism | | Other snf (current) drug therapy | | 1 Chronic kidney disease, stage 3 (moderate) | | Other pancytopenia | | Allergy status to other antibiotic agents status | | | | | | | |Care Team | |There is not a care team on record at this time. | |Collective Portal | |This patient has registered at the [facility] and [facility] Emergency Departmen t | |For more information visit: [email or web address] | |PLEASE NOTE: | | 1. Any care recommendations and other clinical information are provided as guidelines or for historical purposes only, and providers should exercise their own clinical judgment whe n providing care. | | 2. You may only use this information for purposes of treatment, payment or health care o perations activities, and subject to the limitations of applicable Collective Policies. | | 3. You should consult directly with the organization that provided a care guideline or o ther clinical history with any questions about additional information or accuracy or complet eness of information provided. | | | |? 2019 [employer] - www.[email or web address] | + + + + + + + | Performing | Address | City/State/Zipcode | Phone Number | | Organization | | | | + + + + + | [facility] | [address] | [place], [place] | [phone] | | [employer]CH[employer]IES | [address] | [address] | | + + + + + documented in this encounter Visit Diagnoses + + | Diagnosis | + + | Liver transplant status (HCC) - Primary | + + | Immunosuppressed status (HCC) Unspecified disorder of immune mechanism | + + | Fatigue, unspecified type | + + documented in this encounter
--- OUTSIDE RECORDS SUMMARY | ~2020-07-29 | XMS | Encounter Summary ---
Demographics + + + | Address | [address] | | | [place] [address] | + + + | Home Phone | | + + + | Preferred Language | Unknown | + + + | Marital Status | Single | + + + | Church Affiliation | NON | + + + [...] [place] | | | | | [address] | | + + + + + Care Team Providers + +------+ + | Care Stage Driver Name | Role | Phone | + +------+ + | Sharon David MD | PCP | | + +------+ + Encounter Details +--------+ + + + + | Date | Type | Department | Care Team | Description | +--------+ + + + + | 05/12/ | Pharmacy | [facility] | | | | 2020 | Visit | [address] | | | | | | [address] | | | | | | [place] [address] | | | | | | [phone] | | | +--------+ + + + [...] [address] | | | | | | [place], [place] | | | | | | [address] | | | | | | [phone] | | | | | | | | +--------+ + + + + | 09/27/ | Telephone-S | Liver Transplant | Vimal Crowe MD | | | 2019 | cheduled | | [address] | | | | | | [address], | | | | | | [place] [address] | | | | | | [phone] | | | | | | | [...] [address] | | | | | | [place] | | | | | | [address] | | | | | | [phone] | | | | | | | | +--------+ + + + + documented as of this encounter Visit Diagnoses Not on filedocumented in this encounter"
--- OUTSIDE RECORDS SUMMARY | ~2020-07-29 | XMS | Encounter Summary ---
Demographics + + + | Address | [address] | | | [place] [address] | + + + | Home Phone | | + + + | Preferred Language | Unknown | + + + | Marital Status | Single | + + + | Congregational Affiliation | NON | + + + [...] [place] | | | | | [address] | | + + + + + Care Team Providers + +------+ + | Care Drug Enforcement Agent Name | Role | Phone | [...] [address] | [address] | Transplant | | | | [address] | [address] [place], | | | | | Physician's | [place] [address] | | | | | Pavilion, [address] [place] [address] | [phone] | | | | | [place], [place] | | | | | | [address] | | | | | | [phone] | | | +--------+ + + + [...] Rd | | | | | | [place], [place] | | | | | | [address] | | | | | | [phone] | | | | | | | | +--------+ + + + + | 09/27/ | Telephone-S | Liver Transplant | Vimal Crowe MD | | | 2019 | cheduled | | [address] | | | | | | [address], | | | | | | [place] [address] | | | | | | [phone] | | | | | | | [...] Rd | | | | | | [place], [place] | | | | | | [address] | | | | | | [phone] | | | | | | | | +--------+ + + + + documented as of this encounter Visit Diagnoses Not on filedocumented in this encounter"
--- OUTSIDE RECORDS SUMMARY | ~2020-07-29 | XMS | Encounter Summary ---
Demographics + + + | Address | [address] | | | [place] [address] | + + + | Home Phone [...] [place] | | | | | [address] | | + + + + + Care Team Providers + +------+ + | Care Proj Engineer Name | Role | Phone | + +------+ + | Sharon David MD | PCP | | + +------+ + Encounter Details +--------+ + + + + | Date | Type | Department | Care Team | Description | +--------+ + + + + | 06/09/ | Pharmacy | [facility] | | | | 2020 | Visit | [address] | | | [address] | | [address] | | | | | | [place] [address] | | | | | | [phone] | | | +--------+ + + + [...] Rd | | | | | | [place], [place] | | | | | | [address] | | | | | | [phone] | | | | | | | | +--------+ + + + + | 09/27/ | Telephone-S | Liver Transplant | Vimal Crwoe MD | | | 2019 | cheduled | | [address] | | | | | | [address], | | | | | | [place] [address] | | | | | | [phone] | | | | | | | [...] Rd | | | | | | [place] | | | | | | [address] | | | | | | [phone] | | | | | | | | +--------+ + + + + documented as of this encounter Visit Diagnoses Not on filedocumented in this encounter"
--- OUTSIDE RECORDS SUMMARY | ~2020-07-29 | XMS | Encounter Summary ---
Demographics + + + | Address | [address] | | | [place] [address] | + + + | Home Phone [...] [place] | | | | | [address] | | + + + + + Care Team Providers + +------+ + | Care Animal Killer Name | Role | Phone | + [...] Closed | | Cardiology | Diagnoses | [place], | Car General | | | | | Hepatic | Vimal Arita MD | [address] | | | | | cirrhosis, | [address] | Pavilion | | | | | unspecified | [address] | Loop | | | | | hepatic | [address] | Mailcode: | | | | | cirrhosis | [place], [place] | [id number] | | | | | type, | [address] | Physician's | | | | | unspecified | Phone: | Shyann William | | | | | whether | [phone] | [address] | | | | | ascites | Fax: | [place], [place] | | | | | present | [phone] | [address] | | | | | (HCC) | | Phone: | | | | | Pulmonary | | [phone] | | | | | hypertension | | Fax: | | | | | (HCC) | | [phone] | | | | | Procedures | | | | | | | CONSULT TO | | | | | | | CARDIOLOGY | | | +--------+--------+ + + + + Encounter Details +--------+ + + + + | Date | Type | Department | Care Team | Description | +--------+ + + + + | 12/24/ | MyChart | [facility] | Vimal Crowe MD | RE: MRI Results | | 2019 | Encounter | [facility] [address] | [address] | | | | | [address] | [address] [place], | | | | | for Health and | [place] [address] | | | | | [facility] | [phone] | | | | | [place], [place] | | | | | | [address] | | | | | | [phone] | | | +--------+ + + + [...] this encounter Miscellaneous Notes Telephone Encounter - Jaquelin Levy RN - 03/26/2019 2:[address] Cedric Crowe no needs at this time to arrange any labs or imaging. We are awaiting LTX appointments (does not need to see Dr. Crowe in LTX yet as he just saw her in [facility]P clinic) elephone Enc ountteresa - Jaquelin Levy RN - 03/17/2019 9:16 AM PDTLabs received. OV with Dr. Crowe on 03/19 Nephrology also following (increased creatinine) elephone Encounter - Jaquelin Levy RN - 02/16/2019 8:15 AM PDTLVM for Steffen Duran that I am sending a [employer] message with follow up plan. Consult to cardiology placed and provided scheduling phone number to patient. Lab orders faxed to [facility]. Next labs due 03/13/2019 From: Vimal Crowe MD Sent: 02/13/2019 5:24 PM To: Ivana Hawkins RN Labs monthly MELD labs for now. 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 However doesn't look like liver has recovered much after stopping etoh either. Regarding LTX however patient with sig pulmonary hypertensi on with RVSP >60. Plan: --Referral to cards for mod to ware server pulm hypertension evaluation and if he truly does hav e sig pulm hypertension that is a barrier to LTX elephone Encounter - Ramana Serna MA - 02/13/2019 1 0:23 AM PDTPt completed labs 02/12 Labs entered eleph one Encounter - Ramana Serna MA - 02/12/2019 9:15 AM PDTCalled [facility] labs and no labs have been done Left VM for Steffen to please call back and complete labs for Dr. Crowe elephone Encounter - Ramana Serna MA - 02/09/2019 9:15 AM PDTWe received labs done 01/27 Called Steffen and he stated he will try and get labs done for Dr. Crowe by Saturday Electr onically signed by Ramana Serna MA at 02/09/2019 9:17 AM PDTTelephone Encounter - Jaquelin Roberts RN - 01/27/2019 4:20 PM PDTI spoke with Steffen Duran. He is feeling well, denies abdominal pain, no fever, no nausea or vomiting. Discussed plan to repeat labs in 2 weeks- orders faxed to [facility]. He is about to start AA meetings in [place]. He will provide us with information in the n ear future. From: Lencho Rich MD Sent: 01/27/2019 4:14 PM To: Jaquelin Rodgers RN I was looking at his 01/22/2019 labs, which about the same as his other labs in 2019. Repeat labs in 2 weeks TTelephone Encounter - Jaquelin Levy RN - 01/27/2019 3:48 PM PDTFormatting of th is note might be different from the original. Received mychart notification from siter that Steffen Duran "does blood draw lab abo ut every 12 days and then usually goes in for a 4 unit transfusion" DX of anemia - infusion dependent. Lencho Rich MD You 4 hours ago (11:38 AM) Labs are roughly the same. What is he in the hospital for elephone Jaquelin Loaj RN - 01/27/2019 12:18 PM PDTReceived notification from "cas swann" that patient is in the hospital. Asked her to let us know which one and for patient to call us after discharge. elephone Jaquelin Loja RN - 01/27/2019 8:25 AM PDT LVM for Steffen Alberto Duran and for spouse for patient to please call us back to discuss r ecent lab values: elevated bilirubin Also sent [employer] message Routing to covering provider to advise PAS please lync/page if he calls Collected: 01/20/2018 Status: Final result Visible to patient: No (Not Released) Ref Range & Units Value HEMOCHROMATOSIS (H63D) No Mutation HEMOCHROMATOSIS(C282Y) No Mutation No Mutation HEMOCHROMATOSIS S65C No Mutation elephone Liv Conrad - 01/23/2019 9:36 AM PDTInterpath lab called to advise pt had labs done yesterday at 4pm. Confirmed with RN that orders sent over this morning were duplicate. They are waiting on one lab result and then will fax over the set. elephone Encounter - Jaquelin Levy RN - 01/22/2019 8:43 AM PDTI called [facility] and Steffen Duran and labs that we ordere d have not been completed. He had a hospital stay at [facility] & CMP were completed then (01/13) - those results will be faxe d to us. LVM another VM for Steffen Duran to please complete labs Call back number provided elephone Encounter - Ramana Serna MA - 01/21/2019 10:11 AM PDTCalled [facility] and no labs have been done Called and left VM for Steffen to please call back elephone Encounter - Jaquelin Levy RN - 01/19/2019 3:59 PM PDTSpoke with Steffen Duran to r elay message of needed labs per Dr. Crowe. He is able to complete them at [facility] tomorrow - orders faxed. He mentioned he has not used ETOH for the past 6 month and is in the middle of completing p aperwork to join outpatient rehab (AA ?)- he will let us know once completed. elephone Jaquelin Loja RN - 01/19/2019 9:57 AM PDTLVM for Steffen Duran t o please call us back to discuss needed lab draw. Call back number provided. Also sent [employer] message. PAS please lync if he calls From: Vimal Crowe MD Sent: 01/18/2019 3:42 PM To: [facility] Triage Pool Alcoholic cirrhosis gentleman- Can we get repeat CBC, CMP, direct bili and INR Saturday or along with hemochromatosis panel ( C282Y and H63D) test. elephone Encounter - Erica Levy RN - 01/01/2019 11:16 AM PDTmychart message read by patient - no response yet. elephone Jaquelin Loja RN - 12/25/2018 5:33 PM PSTMychart reply sent to answer q uestion regarding liver transplant. Awaiting response from patient From: Vimal Crowe MD Sent: 12/25/2018 4:48 PM To: Jaquelin Rodgers RN MRI showed cirrhosis, no liver cancer. He is reportedly close to 6 mos post stopping etoh. I had recommended he start outpt rehab of any kind- AA etc and if has we can place referral. Per renal it doesn't look like he is a SLK yet eleph one Encounter - Jaquelin Levy RN - 12/25/2018 6:36 AM PSTRouting to provider to advise on MRI from 11/19/2018Electronically signed by Jaquelin Rodgers RN at 6:37 AM PSTdocumented in this encounter Plan of Treatment +--------+ + + + + | Date | Type | Specialty | Care Team | Description | +--------+ + + + + | 08/08/ | Telephone-S | Nephrology | Angélica Chao, | | | 2019 | [place] | | [address] | | | | | | [address] | | | | | | [place], [place] | | | | | | [address] | | | | | | [phone] | | | | | | | | +--------+ + + + + | 09/27/ | Telephone-S | Liver Transplant | Vimal Crowe MD | | 2019 | [facility] | | [address] | | | | | | [address] | | | | | [place] [address] | | | | | | [phone] | | | | | | | | +--------+ + + + + | 10/03/ | Appointment | Cardiology | | | | 2019 | | | | | +--------+ + + + + | 10/03/ | Office | Cardiology | Cyril Samuel | | | 2019 | Visit | | MD Patricia [address] [facility] [address] [facility] | | | | | | [address] | | | | | | [place] | | | | | | [address] | | | | | | [phone] | | | | | | | | +--------+ + + + + documented as of this encounter Procedures + +--------+ + + + | Procedure Name | Priori | Date/Time | Associated Diagnosis | Comments | | | ty | | | | + +--------+ + + + | COMPLETE METABOLIC | Routin | 03/11/2019 | | Results for this | | SET | e | | | procedure are in the | | (NA,K,CL,CO2,BUN,CRE | | | | results section. | | AT,GLUC,CA,AST,ALT,B | | | | | | KEV TOTAL,ALK | | | | | | PHOS,ALB,PROT TOTAL) | | | | | + +--------+ + + + | CBC ONLY | Routin | 03/11/2019 | | Results for this | | | e | | | procedure are in the | | | | | | results section. | + +--------+ + + + | INR | Routin | 02/12/2019 | | Results for this | | | e | | | procedure are in the | | | | | | results section. | + +--------+ + + + | COMPLETE METABOLIC | Routin | 02/12/2019 | | Results for this | | SET | e | | | procedure are in the | | (NA,K,CL,CO2,BUN,CRE | | | | results section. | | AT,GLUC,CA,AST,ALT,B | | | | | | KEV TOTAL,ALK | | | | | | PHOS,ALB,PROT TOTAL) | | | | | + +--------+ + + + | CBC ONLY | Routin | 02/12/2019 | | Results for this | | | e | | | procedure are in the | | | | | | results section. | + +--------+ + + + | INR | Routin | 01/27/2019 | | Results for this | | | e | | | procedure are in the | | | | | | results section. | + +--------+ + + + | COMPLETE METABOLIC | Routin | 01/27/2019 | | Results for this | | SET | e | | | procedure are in the | | (NA,K,CL,CO2,BUN,CRE | | | | results section. | | AT,GLUC,CA,AST,ALT,B | | | | | | KEV TOTAL,ALK | | | | | | PHOS,ALB,PROT TOTAL) | | | | | + +--------+ + + + | CBC ONLY | Routin | 01/27/2019 | | Results for this | | | e | | | procedure are in the | | | | | | results section. | + +--------+ + + + | INR | Routin | 01/22/2019 | | Results for this | | | e | | | procedure are in the | | | | | | results section. | + +--------+ + + + | COMPLETE METABOLIC | Routin | 01/22/2019 | | Results for this | | SET | e | | | procedure are in the | | (NA,K,CL,CO2,BUN,CRE | | | | results section. | | AT,GLUC,CA,AST,ALT,B | | | | | | KEV TOTAL,ALK | | | | | | PHOS,ALB,PROT TOTAL) | | | | | + +--------+ + + + | CBC ONLY | Routin | 01/22/2019 | | Results for this | | | e | | | procedure are in the | | | | | | results section. | + +--------+ + + + | IRON AND TIBC, SERUM | Routin | 01/22/2019 | | Results for this | | | e | | | procedure are in the | | | | | | results section. | + +--------+ + + + | COMPLETE METABOLIC | Routin | 01/13/2019 | | Results for this | | SET | e | | | procedure are in the | | (NA,K,CL,CO2,BUN,CRE | | | | results section. | | AT,GLUC,CA,AST,ALT,B | | | | | | KEV TOTAL,ALK | | | | | | PHOS,ALB,PROT TOTAL) | | | | | + +--------+ + + + | CBC ONLY | Routin | 01/13/2019 | | Results for this | | | e | | | procedure are in the | | | | | | results section. | + +--------+ + + + | LAB OTHER | Routin | 01/20/2018 | | Results for this | | | e | | | procedure are in the | | | | | | results section. | + +--------+ + + + documented in this encounter Results COMPLETE METABOLIC SET (NA,K,CL,CO2,BUN,CREAT,GLUC,CA,AST,ALT,BILI TOTAL,ALK PHOS,ALB,PROT TOTAL) (03/11/2019) + + + + + + | Component | Value | Ref Range | Performed | Pathologist | | | | | At | Signature | + + + + + + | GLUCOSE, | 179 (H) | mg/dL | [facility] | | | PLASMA | | | LAB - | | | (LAB) | | | [place] | | + + + + + + | BUN, PLASMA | 57 (H) | mg/dL | [facility] | | | (LAB) | | | LAB - | | | | | | [place] | | + + + + + + | CREATININE | 1.75 (H) | mg/dL | [facility] | | | PLASMA | | | LAB - | | | (LAB) | | | [place] | | + + + + + + | ALBUMIN, | 3.3 (L) | g/dL | [facility] | | | PLASMA | | | LAB - | | | (LAB) | | | [place] | | + + + + + + | BILIRUBIN | 13.3 (H) | Transcutaneous | [facility] | | | TOTAL | | Bilirubinometer | LAB - | | | | | | [place] | | + + + + + + | ALK PHOS | 149 (H) | U/L | [facility] | | | | | | LAB - | | | | | | [place] | | + + + + + + | AST(SGOT) | 82 (H) | U/L | [facility] | | | | | | LAB - | | | | | | [place] | | + + + + + + | SODIUM, | 130 (L) | mmol/L | [facility] | | | PLASMA | | | LAB - | | | (LAB) | | | [place] | | + + + + + + | POTASSIUM, | 4.9 | mmol/L | [facility] | | | PLASMA | | | LAB - | | | (LAB) | | | [place] | | + + + + + + | ALT (SGPT) | 45 | U/L | [facility] | | | | | | LAB - | | | | | | [place] | | + + + + + + + + | Specimen | + + | Blood - Blood | | (substance) | + + + + + + + | Performing | Address | City/State/Zipcode | Phone Number | | Organization | | | | + + + + + | [facility] - | [address] | [place] | | | [place] | [address] | [phone] | | + + + + + CBC ONLY (03/11/2019) + + + + + + | Component | Value | Ref Range | Performed | Pathologist | | | | | At | Signature | + + + + + + | WHITE CELL | 7.4 | K/cu mm | [facility] | | | COUNT | | | LAB - | | | | | | [place] | | + + + + + + | RED CELL | 1.75 (L) | M/cu mm | [facility] | | | COUNT | | | LAB - | | | | | | [place] | | + + + + + + | HEMOGLOBIN | 7.2 (L) | g/dL | [facility] | | | | | | LAB - | | | | | | [place] | | + + + + + + | HEMATOCRIT | 19.6 (L) | % | [facility] | | | | | | LAB - | | | | | | [place] | | + + + + + + | PLATELET | 65 (L) | K/cu mm | [facility] | | | COUNT | | | LAB - | | | | | | [place] | | + + + + + + + + | Specimen | + + | Blood - Blood | | (substance) | + + + + + + + | Performing | Address | City/State/Zipcode | Phone Number | | Organization | | | | + + + + + | [facility] - | [address] | [place], [place] | | | [place] | [address] | [address] | | + + + + + INR (02/12/2019) + +-------+ + + + | Component | Value | Ref Range | Performed | Pathologist | | | | | At | Signature | + +-------+ + + + | INR | 2.5 | INR | [facility] | | | | [...] - | [address] | [place], [place] | [phone] | | [place] | | | | + + + + + COMPLETE METABOLIC SET (NA,K,CL,CO2,BUN,CREAT,GLUC,CA,AST,ALT,BILI TOTAL,ALK PHOS,ALB,PROT TOTAL) (02/12/2019) + + + + + + | Component | Value | Ref Range | Performed | Pathologist | | | | | At | Signature | + + + + + + | GLUCOSE, | 107 (H) | mg/dL | [facility] | | | PLASMA | | | LAB - | | | (LAB) | | | [place] | | + + + + + + | BUN, PLASMA | 46 (H) | mg/dL | [facility] | | | (LAB) | | | LAB - | | | | | | [place] | | + + + + + + | CREATININE | 1.32 | mg/dL | [facility] | | | PLASMA | | | LAB - | | | (LAB) | | | [place] | | + + + + + + | ALBUMIN, | 3.1 (L) | g/dL | [facility] | | | PLASMA | | | LAB - | | | (LAB) | | | [place] | | + + + + + + | BILIRUBIN | 14.0 (H) | Transcutaneous | [facility] | | | TOTAL | | Bilirubinometer | LAB - | | | | | | [place] | | + + + + + + | ALK PHOS | 180 (H) | U/L | [facility] | | | | | | LAB - | | | | | | [place] | | + + + + + + | AST(SGOT) | 88 (H) | U/L | [facility] | | | | | | LAB - | | | | | | [place] | | + + + + + + | SODIUM, | 129 (L) | mmol/L | [facility] | | | [...] + | ALT (SGPT) | 37 | U/L | [facility] | | | | | | LAB - | | | | | | [place] | | + + + + + + | BILIRUBIN | 4.0 (H) | mg/dL | [facility] | | | [...] - | [address] | [place] | [phone] | | [place] | | | | + + + + + CBC ONLY (02/12/2019) + + + + + + | Component | Value | Ref Range | Performed | Pathologist | | | | | At | Signature | + + + + + + | WHITE CELL | 6.9 | K/cu mm | [facility] | | | COUNT | | | LAB - | | | | | | [place] | | + + + + + + | RED CELL | 1.84 (L) | M/cu mm | [facility] | | | COUNT | | | LAB - | | | | | | [place] | | + + + + + + | HEMOGLOBIN | 7.2 (L) | g/dL | [facility] | | | | | | LAB - | | | | | | [place] | | + + + + + + | HEMATOCRIT | 20.7 (L) | % | [facility] | | | | | | LAB - | | | | | | [place] | | + + + + + + | PLATELET | 69 (L) | K/cu mm | [facility] | | [...] | [facility] - | [address] | [place] | [phone] | | [place] | | | | + + + + + INR (01/27/2019) + +-------+ + + + | Component | Value | Ref Range | Performed | Pathologist | | | | | At | Signature | + +-------+ + + + | INR | 2.1 | INR | [facility] | | | | [...] + + | [facility] - | [address] | [place], [place] | [phone] | | [place] | | | | + + + + + COMPLETE METABOLIC SET (NA,K,CL,CO2,BUN,CREAT,GLUC,CA,AST,ALT,BILI TOTAL,ALK PHOS,ALB,PROT TOTAL) (01/27/2019) + + + + + + | Component | Value | Ref Range | Performed | Pathologist | | | | | At | Signature | + + + + + + | GLUCOSE, | 243 (H) | mg/dL | [facility] | | | PLASMA | | | LAB - | | | (LAB) | | | [place] | | + + + + + + | BUN, PLASMA | 30 (H) | mg/dL | [facility] | | | (LAB) | | | LAB - | | | | | | [place] | | + + + + + + | CREATININE | 1.20 | mg/dL | [facility] | | | PLASMA | | | LAB - | | | (LAB) | | | [place] | | + + + + + + | ALBUMIN, | 3.2 (L) | g/dL | [facility] | | | PLASMA | | | LAB - | | | (LAB) | | | [place] | | + + + + + + | BILIRUBIN | 13.0 (H) | Transcutaneous | [facility] | | | TOTAL | | Bilirubinometer | LAB - | | | | | | [place] | | + + + + + + | ALK PHOS | 143 (H) | U/L | [facility] | | | | | | LAB - | | | | | | [place] | | + + + + + + | AST(SGOT) | 100 (H) | U/L | [facility] | | | | | | LAB - | | | | | | [place] | | + + + + + + | SODIUM, | 132 | mmol/L | [facility] | | | [...] + | ALT (SGPT) | 44 | U/L | [facility] | | | [...] - | [address] | [place], [place] | [phone] | | [place] | | | | + + + + + CBC ONLY (01/27/2019) + + + + + + | Component | Value | Ref Range | Performed | Pathologist | | | | | At | Signature | + + + + + + | WHITE CELL | 5.6 | K/cu mm | [facility] | | | COUNT | | | LAB - | | | | | | [place] | | + + + + + + | RED CELL | 1.84 (L) | M/cu mm | [facility] | | | COUNT | | | LAB - | | | | | | [place] | | + + + + + + | HEMOGLOBIN | 7.0 (L) | g/dL | [facility] | | | | | | LAB - | | | | | | [place] | | + + + + + + | HEMATOCRIT | 19.6 (L) | % | [facility] | | | [...] [address] | [place], [place] | [phone] | | [place] | | | | + + + + + INR (01/22/2019) + +-------+ + + + | Component | Value | Ref Range | Performed | Pathologist | | | | | At | Signature | + +-------+ + + + | INR | 2.8 | INR | [facility] | | | | [...] - | [address] | [place], [place] | [phone] | | [place] | | | | + + + + + IRON AND TIBC (01/22/2019) + + + + + + | Component | Value | Ref Range | Performed | Pathologist | | | | | At | Signature | + + + + + + | IRON | 219 (H) | ug/dL | [facility] | | | | | | LAB - | | | | | | [place] | | + + + + + + | IRON BIND | 193 (L) | ug/dL | [facility] | | | CAP | | | LAB - | | | | | | [place] | | + + + + + + | % | 114 (H) | % | [facility] | | | SATURATION | | | LAB - | | | TRANSFERRIN | | | [place] | | | , | | | | | + + + + + + | FERRITIN | 5,073 (H) | ng/mL | [facility] | | | | | | LAB - | | | | | | [place] | | + + + + + + | TRANSFERRIN | 138 (L) | mg/dL | [facility] | | | | [...] [address] | [place], [place] | [phone] | | [place] | | | | + + + + + COMPLETE METABOLIC SET (NA,K,CL,CO2,BUN,CREAT,GLUC,CA,AST,ALT,BILI TOTAL,ALK PHOS,ALB,PROT TOTAL) (01/22/2019) + + + + + + | Component | Value | Ref Range | Performed | Pathologist | | | | | At | Signature | + + + + + + | GLUCOSE, | 139 (H) | mg/dL | [facility] | | | PLASMA | | | LAB - | | | (LAB) | | | [place] | | + + + + + + | BUN, PLASMA | 29 (H) | mg/dL | [facility] | | | (LAB) | | | LAB - | | | | | | [place] | | + + + + + + | CREATININE | 1.11 | mg/dL | [facility] | | | PLASMA | | | LAB - | | | (LAB) | | | [place] | | + + + + + + | ALBUMIN, | 3.0 (L) | g/dL | [facility] | | | PLASMA | | | LAB - | | | (LAB) | | | [place] | | + + + + + + | BILIRUBIN | 15.4 (H) | Transcutaneous | [facility] | | | TOTAL | | Bilirubinometer | LAB - | | | | | | [place] | | + + + + + + | ALK PHOS | 106 | U/L | [facility] | | | | | | LAB - | | | | | | [place] | | + + + + + + | AST(SGOT) | 98 (H) | U/L | [facility] | | | | | | LAB - | | | | | | [place] | | + + + + + + | SODIUM, | 132 | mmol/L | [facility] | | | PLASMA | | | LAB - | | | (LAB) | | | [place] | | + + + + + + | POTASSIUM, | 4.1 | mmol/L | [facility] | | | PLASMA | | | LAB - | | | (LAB) | | | [place] | | + + + + + + | ALT (SGPT) | 43 | U/L | [facility] | | | | | | LAB - | | | | | | [place] | | + + + + + + | BILIRUBIN | 3.9 (H) | mg/dL | [facility] | | | [...] - | [address] | [place], [place] | [phone] | | [place] | | | | + + + + + CBC ONLY (01/22/2019) + + + + + + | Component | Value | Ref Range | Performed | Pathologist | | | | | At | Signature | + + + + + + | WHITE CELL | 3.8 (L) | K/cu mm | [facility] | | | COUNT | | | LAB - | | | | | | [place] | | + + + + + + | RED CELL | 2.49 (L) | M/cu mm | [facility] | | | COUNT | | | LAB - | | | | | | [place] | | + + + + + + | HEMOGLOBIN | 8.9 (L) | g/dL | [facility] | | | | | | LAB - | | | | | | [place] | | + + + + + + | HEMATOCRIT | 26.0 (L) | % | [facility] | | | | | | LAB - | | | | | | [place] | | + + + + + + | PLATELET | 64 (L) | K/cu mm | [facility] | | [...] - | [address] | [place], [place] | [phone] | | [place] | | | | + + + + + COMPLETE METABOLIC SET (NA,K,CL,CO2,BUN,CREAT,GLUC,CA,AST,ALT,BILI TOTAL,ALK PHOS,ALB,PROT TOTAL) (01/13/2019) + + + + + + | Component | Value | Ref Range | Performed | Pathologist | | | | | At | Signature | + + + + + + | GLUCOSE, | 128 (H) | mg/dL | [facility] | | | PLASMA | | | LAB - | | | (LAB) | | | [place] | | + + + + + + | BUN, PLASMA | 32 (H) | mg/dL | [facility] | | | (LAB) | | | LAB - | | | | | | [place] | | + + + + + + | CREATININE | 1.14 | mg/dL | [facility] | | | PLASMA | | | LAB - | | | (LAB) | | | [place] | | + + + + + + | ALBUMIN, | 2.5 (L) | g/dL | [facility] | | | PLASMA | | | LAB - | | | (LAB) | | | [place] | | + + + + + + | BILIRUBIN | 11.5 (H) | Transcutaneous | [facility] | | | TOTAL | | Bilirubinometer | LAB - | | | | | | [place] | | + + + + + + | ALK PHOS | 123 (H) | U/L | [facility] | | | | | | LAB - | | | | | | [place] | | + + + + + + | AST(SGOT) | 76 (H) | U/L | [facility] | | | | | | LAB - | | | | | | [place] | | + + + + + + | SODIUM, | 128 (L) | mmol/L | [facility] | | | [...] + + + | ALT (SGPT) | 30 | U/L | [facility] | | | [address] | [place] | [phone] | | [place] | | | | + + + + + CBC ONLY (01/13/2019) + + + + + + | [...] + + + | RED CELL | 2.19 (L) | M/cu mm | [facility] | | | COUNT | | | LAB - | | | | | | [place] | | + + + + + + | HEMOGLOBIN | 8.0 (L) | g/dL | [facility] | | | | | | LAB - | | | | | | [place] | | + + + + + + | HEMATOCRIT | 22.0 (L) | % | [facility] | | | | | | LAB - | | | | | | [place] | | + + + + + + | PLATELET | 48 (L) | K/cu mm | [facility] | | [...] + + | [facility] - | [id number] | [place], [place] | [phone] | | [place] | | | | + + + + + LAB OTHER (01/20/2018) + + + + + + | Component | Value | Ref Range | Performed | Pathologist | | | | | At | Signature | + + + + + + | HEMOCHROMAT | No Mutation | | [facility] | | | [facility] ([id number]) | | | LAB - | | | | | | [place] | | + + + + + + | HEMOCHROMAT | No Mutation | No Mutation | [facility] | | | [facility]([id number]) | | | LAB - | | | | | | [place] | | + + + + + + | HEMOCHROMAT | No Mutation | | [facility] | | | [facility] [id number] | | | LAB - | | | | | | [place] | | + + + + + + + + | Specimen | + + | | + + + + + + + | Performing | Address | City/State/Zipcode | Phone Number | | Organization | | | | + + + + + | [facility] - | [address] | [place] | [phone] | | [place] | | | | + + + + + documented in this encounter Visit Diagnoses + + | Diagnosis | + + | Hepatic cirrhosis, unspecified hepatic cirrhosis type, unspecified whether ascites | | present (HCC) - Primary | + + | Pulmonary hypertension (HCC) Other chronic pulmonary heart diseases | + + documented in this encounter
--- OUTSIDE RECORDS SUMMARY | ~2020-07-29 | XMS | Encounter Summary ---
Demographics + + + | Address | [address] | | | [place] [address] | + + + | Home Phone [...] [place] | | | | | [address] | | + + + + + Care Team Providers + +------+ + | Care Escrow Manager Name | Role | Phone | + +------+ + | Sharon David MD | PCP | | + +------+ + Encounter Details +--------+ + + + + | Date | Type | Department | Care Team | Description | +--------+ + + + + | 12/17/ | Abstract | Clinical | Vimal Crowe MD | | | 2019 | | Transplant Services | [address] | | | | | [address] | [address] [place], | | | | | [place], | [place] [address] | | | | | [place] [address] | [phone] | | | | | [phone] | | | +--------+ + + + [...] Rd | | | | | | [place], [place] | | | | | | [address] | | | | | | [phone] | | | | | | | | +--------+ + + + + | 09/27/ | Telephone-S | Liver Transplant | Vimal Crowe MD | | | 2019 | [place] | | [address] | | | | | | [facility] [address] [place], | | | | | | [place] [address] | | | | | | [phone] | | | | | | | | +--------+ + + + + | 10/03/ | Appointment | Cardiology | | | | 2019 | | | | | +--------+ + + + + | 10/03/ | Office | Cardiology | Cyril Samuel | | | 2019 | Visit | Darren Gomez MD [address] | | | | | | [address] | | | | | | [place], [place] | | | | | | [address] | | | | | | [phone] | | | | | | | | +--------+ + + + + documented as of this encounter Procedures + +--------+ + + + | Procedure Name | Priori | Date/Time | Associated Diagnosis | Comments | | | ty | | | | + +--------+ + + + | LIVER TRANSPLANT | Routin | 12/16/2019 | | Results for this | | POST PANEL (EXT | e | 2:12 PM | | procedure are in the | | RESULTS) | | PST | | results section. | + +--------+ + + + documented in this encounter Results LIVER TRANSPLANT POST PANEL (EXT RESULTS) (12/16/2019 2:12 PM PST) + + + + + + | Component | Value | Ref Range | Performed | Pathologist | | | | | At | Signature | + + + + + + | SODIUM, | 142 | mmol/L | [facility] | | | [...] + + | CHLORIDE, | 106 | mmol/L | [facility] | | | [...] + + + | GLUCOSE, | 139 (A) | 65 - 110 mg/dL | [facility] | | | PLASMA | | | LAB - | | | (LAB) | | | [place] | | + + + + + + | BUN, PLASMA | 36 | mg/dL | [facility] | | | (LAB) | | | LAB - | | | | | | [place] | | + + + + + + | CREATININE | 1.86 | mg/dL | [facility] | | | PLASMA | | | LAB - | | | (LAB) | | | [place] | | + + + + + + | CALCIUM, | 9.1 | mg/dL | [facility] | | | PLASMA | | | LAB - | | | (LAB) | | | [place] | | + + + + + + | PHOSPHORUS, | 4.9 | mg/dL | [facility] | | | PLASMA | | | LAB - | | | (LAB) | | | [place] | | + + + + + + | MAGNESIUM,P | 1.6 | mg/dL | [facility] | | | [...] + + + | ALK PHOS | 48 | U/L | [facility] | | | [...] + + + | URIC ACID, | 9.3 | mg/dL | [facility] | | | PLASMA | | | LAB - | | | (LAB) | | | [place] | | + + + + + + | WHITE CELL | 5.1 | K/cu mm | [facility] | | | COUNT | | | LAB - | | | | | | [place] | | + + + + + + | HEMATOCRIT | 36.0 | % | [facility] | | | | | | LAB - | | | | | | [place] | | + + + + + + | HEMOGLOBIN | 11.6 (A) | 13.5 - 17.5 | [facility] | | | | | g/dL | LAB - | | | | | | [place] | | + + + + + + | PLATELET | 138 | K/cu mm | [facility] | | | COUNT | | | LAB - | | | | | | [place] | | + + + + + + | TACROLIMUS | 8.6 | ng/mL | [facility] | | | [...] [address] | [place] | [phone] | | [place] | | | | + + + + + documented in this encounter Visit Diagnoses Not on filedocumented in this encounter"
--- OUTSIDE RECORDS SUMMARY | ~2020-07-29 | XMS | Encounter Summary ---
Demographics + + + | Address | [address] | | | [place] [address] | + + + | Home Phone [...] [place] | | | | | [address] | | + + + + + Care Team Providers + +------+ + | Care Building Attendant Name | Role | Phone | + +------+ + | Sharon David MD | PCP | | + +------+ + Encounter Details +--------+ + + + + | Date | Type | Department | Care Team | Description | +--------+ + + + + | 06/24/ | MyChart | Cardiology General | Chasidy Osullivan | Steffen Duran | | 2019 | Encounter | at [facility] [address] | ALEX Quintanilla [address] | Transplant | | | | Camelia | [address] [place], | | | | | [facility], | [place] [address] | | | | | | [phone] | | | | | Floor [place], [place] | | | | | | [address] | | | | | | [phone] | | | +--------+ + + + [...] Rd | | | | | | [place], [place] | | | | | | [address] | | | | | | [phone] | | | | | | | | +--------+ + + + + | 09/27/ | Telephone-S | Liver Transplant | Vimal Crowe MD | | | 2019 | [place] | | [address] | | | | | | [address], | | | | | | [place] [address] | | | | | | [phone] | | | | | | | | +--------+ + + + + | 10/03/ | Appointment | Cardiology | | | | 2019 | | | | | +--------+ + + + + | 10/03/ | Office | Cardiology | Cyril Samuel | | | 2019 | Visit | | MD [place] [address] | | | | | | [address] | | | | | | [place], [place] | | | | | | [address] | | | | | | [phone] | | | | | | | | +--------+ + + + + documented as of this encounter Visit Diagnoses Not on filedocumented in this encounter"
--- OUTSIDE RECORDS SUMMARY | ~2020-07-29 | XMS | Encounter Summary ---
Demographics + + + | Address | [address] | | | [place] [address] | + + + | Home Phone [...] [place] | | | | | [address] | | + + + + + Care Team Providers + +------+ + | Care Ointment Mill Tender Name | Role | Phone | + +------+ + | Sharon David MD | PCP | | + +------+ + Encounter Details +--------+--------+ + + + | Date | Type | Department | Care Team | Description | +--------+--------+ + + + | 08/31/ | Travel | | | | | [...] | | | | | | [place], [place] | | | | | | [address] | | | | | | [phone] | | | | | | | | +--------+ + + + + | 09/27/ | Telephone-S | Liver Transplant | Vimal Crowe MD | | | 2019 | [place] | | [address] | | | | | | [address], | | | | | | [place] [address] | | | | | | [phone] | | | | | | | [...] [place] | | | | | | [address] | | | | | | [phone] | | | | | | | | +--------+ + + + + documented as of this encounter Visit Diagnoses Not on filedocumented in this encounter"
--- OUTSIDE RECORDS SUMMARY | ~2020-07-29 | XMS | Encounter Summary ---
Demographics + + + | Address | [address] | | | [place] [address] | + + + | Home Phone [...] [place] | | | | | [address] | | + + + + + Care Team Providers + +------+ + | Care Oracle Database Architect Name | Role | Phone | + +------+ + | Sharon David MD | PCP | | + +------+ + Reason for Referral Diagnostic Testing (Routine) +--------+--------+ + + + + | Status | Reason | Specialty | Diagnoses / | Referred By | Referred To | | | | | Procedures | Contact | Contact | +--------+--------+ + + + + | Closed | | Radiology | Diagnoses | Txc Trans | Rad Ct Scan | | | | | Alcoholic | Coord Liver | [facility] [address] | | | | | cirrhosis of | [address] | | | | | liver with | Sanjay | [place] [facility] | | | | | ascites | [place] [facility], | | | | | (HCC) | [place], [place] | 10th Floor | | | | | Preoperative | [address] | [place], [place] | | | | | examination | Phone: | [phone] | | | | | Internal | [phone] | Phone: | | | | | organ | Fax: | [phone] | | | | | deficiencies | [phone] | Fax: | | | | | Procedures | | [phone] | | | | | CT ABDOMEN | | | | | | | WWO IV | | | | | | | CONTRAST | | | +--------+--------+ + + + + Reason for Visit Diagnostic Testing (Routine) +--------+--------+ + + + + | Status | Reason | Specialty | Diagnoses / | Referred By | Referred To | | | | | Procedures | Contact | Contact | +--------+--------+ + + + + | Closed | | Radiology | Diagnoses | Txc Trans | Rad Ct Scan | | | | | Alcoholic | Coord Liver | [facility] [address] | | | | | cirrhosis of | [address] | | | | | liver with | Sanjay | [place] [facility] | | | | | ascites | [address] | Hospital, | | | | | (HCC) | [place], [place] | 10th Floor | | | | | Preoperative | [address] | [place], [place] | | | | | examination | Phone: | [address] | | | | | Internal | [phone] | Phone: | | | | | organ | Fax: | [phone] | | | | | deficiencies | [phone] | Fax: | | | | | Procedures | | [phone] | | | | | CT ABDOMEN | | | | | | | WWO IV | | | | | | | CONTRAST | | | +--------+--------+ + + + + Encounter Details +--------+ + + + + | Date | Type | Department | Care Team | Description | +--------+ + + + + | 05/19/ | Hospital | Diagnostic Imaging | Vimal Crowe MD | | | 2019 | Encounter | Services at [facility] | [address] | | | | | [address] | [address] [place], | | | | | [place] [facility] | [place] [address] | | | | | [facility], 10th Floor | [phone] | | | | | [place], [place] | | | | | | [address] | | | | | | [phone] | | | +--------+ + + + [...] Rd | | | | | | [place], [place] | | | | | | [address] | | | | | | [phone] | | | | | | | | +--------+ + + + + | 09/27/ | Telephone-S | Liver Transplant | Vimal Crowe MD | | | 2019 | [place] | | [address] | | | | | | [facility] [place], | | | | | | [place] [address] | | | | | | [phone] | | | | | | | | +--------+ + + + + | 10/03/ | Appointment | Cardiology | | | | 2019 | | | | | +--------+ + + + + | 10/03/ | Office | Cardiology | Cyrli Samuel | | | 2019 | Visit | | MD [place] [address] | | | | | | [address] | | | | | | [place], [place] | | | | | | [address] | | | | | | [phone] | | | | | | | | +--------+ + + + + documented as of this encounter Procedures + +--------+ + + + | Procedure Name | Priori | Date/Time | Associated Diagnosis | Comments | | | ty | | | | + +--------+ + + + | CT ABDOMEN WWO IV | Routin | 05/19/2019 | Alcoholic | Results for this | | CONTRAST | e | 3:00 PM | cirrhosis of liver | procedure are in the | | | | PDT | with ascites (HCC) | results section. | | | | | Preoperative | | | | | | examination | | | | | | Internal organ | | | | | | deficiencies | | + +--------+ + + + documented in this encounter Results CT ABDOMEN WWO IV CONTRAST (05/19/2019 3:00 PM PDT) + + | Specimen | + + | | + + + + + | Narrative | Performed At | + + + | EXAM: Liver protocol CT of the abdomen with and without contrast. | [facility] | | HISTORY: liver transplant candidate, eval for HCC, eval size & | RADIOLOGY VOICE | | patency of PV & SMV Liver lesion. COMPARISON: MRI 04/22 | RECOGNITION 2 | | TECHNIQUE: Unenhanced, arterial, portal venous and 4-minute delayed | | | abdominal CT with non-ionic iodinated intravenous contrast. Coronal | | | and sagittal reformats were reviewed. FINDINGS: LOWER THORAX: | | | Borderline cardiomegaly. Trace pericardial effusion. No pleural | | | effusion. Lung bases otherwise demonstrates scarring and atelectasis. | | | LIVER: Heterogeneous perfusion to the liver parenchyma, with | | | sequela of cirrhosis and portal hypertension including recanalization | | | of the umbilical vein, portosystemic collaterals.. Heterogeneous | | | perfusion noted throughout likely sequela of liver dysfunction and | | | underlying liver disease. No focal mass lesion, however identified. | | | BILIARY: Gallbladder mildly distended, with numerous layering | | | gallstones noted within (56/8). PANCREAS: Unremarkable. SPLEEN: | | | Splenomegaly, with spleen measuring 17.1 cm in cephalocaudal dimension | | | ADRENALS: Unremarkable. KIDNEYS/URETERS: Both kidneys enhance | | | homogeneously. There is lobulated contour to the kidneys, bilaterally, | | | with nonobstructing calculus in the left midpole measuring 4 mm. No | | | hydronephrosis. No solid mass lesion GI TRACT: Visualized portions | | | are unremarkable. PERITONEUM: No free air or fluid. LYMPH NODES: | | | Joey hepatic adenopathy likely reactive measuring up to 1 cm short | | | axis (37/8). VESSELS: Mild atherosclerotic burden. No aneurysm. | | | Splenorenal shunt, and gastroesophageal varices. BONES AND SOFT | | | TISSUES: Degenerative changes. No suspicious lytic or blastic lesion | | | IMPRESSION: Heterogeneous perfusion to the liver parenchyma | | | that may be sequela of previously suggested hemachromatosis, or | | | underlying liver dysfunction, without focal mass lesion suggestive of | | | hepatocellular carcinoma. Cirrhosis and sequela of portal | | | hypertension including portosystemic collaterals, splenorenal shunt, | | | portal hypertension, without ascites. LI-RADS v2018 LI-RADS | | | NC: Not categorized due to image degradation or omission. LI-RADS M: | | | Possible malignancy, but not HCC-specific. LI-RADS TIV: Definitely | | | tumor in vein due to HCC or non-HCC malignancy. LI-RADS 5: Definitely | | | HCC (concordant with OPTN 5). LI-RADS 4: Probably HCC. LI-RADS 3: | | | Intermediate probability for malignancy. LI-RADS 2: Probably benign. | | | LI-RADS 1: Definitely benign. LI-RADS TR Non-evaluable: | | | Treated, but response not evaluable due to image omission or | | | degradation. LI-RADS TR Nonviable: Treated, probably or definitely | | | not viable. LI-RADS TR Equivocal: Treated, equivocally viable. | | | LI-RADS TR Viable: Treated, Probably or definitely viable. NOTE: | | | LI-RADS categories should be interpreted in the context of other | | | available data, such as biomarkers and the prior probability of | | | developing or having HCC. The imaging criteria for definite HCC are | | | concordant for the LI-RADS and OPTN systems. LI-RADS criteria and | | | documentation are available online at | | | [email or web address].org/Quality-Safety/Resources/LIRADS/LIRADS-v2017. I | | | have personally reviewed the images and, if necessary, edited the | | | report. I agree with the report as now presented. Final | | | signature: Roger Woodson MD 05/19/2019 4:01 PM | | | Preliminary: Roger Woodson MD Dictation initiated: | | | Roger Woodson MD 05/19/2019 3:52 PM | | + + + + + | Procedure Note | + + | Service Account, [employer] Res In Interface - 05/19/2019 4:03 PM PDT EXAM: Liver | | protocol CT of the abdomen with and without contrast. HISTORY: liver transplant | | candidate, eval for HCC, eval size & patency of PV & SMV Liver lesion. COMPARISON: MRI | | 04/22 TECHNIQUE: Unenhanced, arterial, portal venous and 4-minute delayed abdominal CT | | with non-ionic iodinated intravenous contrast. Coronal and sagittal reformats were | | reviewed. FINDINGS: LOWER THORAX: Borderline cardiomegaly. Trace pericardial effusion. | | No pleural effusion. Lung bases otherwise demonstrates scarring and atelectasis. LIVER: | | Heterogeneous perfusion to the liver parenchyma, with sequela of cirrhosis and portal | | hypertension including recanalization of the umbilical vein, portosystemic collaterals.. | | Heterogeneous perfusion noted throughout likely sequela of liver dysfunction and | | underlying liver disease. No focal mass lesion, however identified. BILIARY: Gallbladder | | mildly distended, with numerous layering gallstones noted within (56/8).PANCREAS: | | Unremarkable. SPLEEN: Splenomegaly, with spleen measuring 17.1 cm in cephalocaudal | | dimensionADRENALS: Unremarkable.KIDNEYS/URETERS: Both kidneys enhance homogeneously. | | There is lobulated contour to the kidneys, bilaterally, with nonobstructing calculus in | | the left midpole measuring 4 mm. No hydronephrosis. No solid mass lesion GI TRACT: | | Visualized portions are unremarkable.PERITONEUM: No free air or fluid. LYMPH NODES: | | Joey hepatic adenopathy likely reactive measuring up to 1 cm short axis (37/8).VESSELS: | | Mild atherosclerotic burden. No aneurysm. Splenorenal shunt, and gastroesophageal | | varices. BONES AND SOFT TISSUES: Degenerative changes. No suspicious lytic or blastic | | lesion IMPRESSION: Heterogeneous perfusion to the liver parenchyma that may be sequela | | of previously suggested hemachromatosis, or underlying liver dysfunction, without focal | | mass lesion suggestive of hepatocellular carcinoma. Cirrhosis and sequela of portal | | hypertension including portosystemic collaterals, splenorenal shunt, portal | | hypertension, without ascites. LI-RADS [id number] NC: Not categorized due to image | | degradation or omission.LI-RADS M: Possible malignancy, but not HCC-specific.LI-RADS | | TIV: Definitely tumor in vein due to HCC or non-HCC malignancy.LI-RADS 5: Definitely HCC | | (concordant with OPTN 5).LI-RADS 4: Probably HCC.LI-RADS 3: Intermediate probability | | for malignancy.LI-RADS 2: Probably benign.LI-RADS 1: Definitely benign. LI-RADS TR | | Non-evaluable: Treated, but response not evaluable due to image omission or | | degradation.LI-RADS TR Nonviable: Treated, probably or definitely not viable.LI-RADS TR | | Equivocal: Treated, equivocally viable.LI-RADS TR Viable: Treated, Probably or | | definitely viable. NOTE: LI-RADS categories should be interpreted in the context of | | other available data, such as biomarkers and the prior probability of developing or | | having HCC. The imaging criteria for definite HCC are concordant for the LI-RADS and | | OPTN systems. LI-RADS criteria and documentation are available online at | | [email or web address].org/Quality-Safety/Resources/LIRADS/LIRADS-v2017. I have personally reviewed | | the images and, if necessary, edited the report. I agree with the report as now | | presented. Final signature: Roger Woodson MD 05/19/2019 4:01 PM Preliminary: | | Roger Woodson MD Dictation initiated: Roger Woodson MD 05/19/2019 | | 3:52 PM | |LI-RADS 5: Definitely HCC (concordant with OPTN 5). | |LI-RADS 4: Probably HCC. | |LI-RADS 3: Intermediate probability for malignancy. | |LI-RADS 2: Probably benign. | |LI-RADS 1: Definitely benign. | | | |LI-RADS TR Non-evaluable: Treated, but response not evaluable due to image omission or deg radation. | |LI-RADS TR Nonviable: Treated, probably or definitely not viable. | |LI-RADS TR Equivocal: Treated, equivocally viable. | |LI-RADS TR Viable: Treated, Probably or definitely viable. | | | |NOTE: LI-RADS categories should be interpreted in the context of other available data, such as biomarkers and the prior probability of developing or having HCC. The imaging criteria for definite HCC are concordant for | |the LI-RADS and OPTN systems. LI-RADS criteria and documentation are available online at w [email or web address]/Quality-Safety/Resources/LIRADS/LIRADS-v2017. | | | |I have personally reviewed the images and, if necessary, edited the report. I agree with th e report as now presented. | | | |Final signature: oRger Woodson MD 05/19/2019 4:01 PM | |Preliminary: Roger Woodson MD | |Dictation initiated: Roger Woodson MD 05/19/2019 3:52 PM | + + + +---------+ + [...] cirrhosis of liver | + + | Preoperative examination Preoperative examination, unspecified | + + | Internal organ deficiencies Deficiencies of internal organs | + + documented in this encounter Administered Medications + +---------+ +--------+------+------+ | Medication Order | MAR | Action | Dose | Rate | Site | | | Action | Date | | | | + +---------+ +--------+------+------+ | iohexol (OMNIPAQUE) 350 mg | IV Push | 05/19/20 | 125 mL | | | | iodine/mL injection 125 mL 125 | | 19 3:00 | | | | | mL, intravenous, ONCE, 1 dose, | | PM PDT | | | | | 05/19/19 at 1545 | | | | | | + +---------+ +--------+------+------+ +---+---+ | | | +---+---+ documented in this encounter"
--- OUTSIDE RECORDS SUMMARY | ~2020-07-29 | XMS | Encounter Summary ---
Demographics + + + | Address | [address] | | | [place] [address] | + + + | Home Phone [...] [place] | | | | | [address] | | + + + + + Care Team Providers + +------+ + | Care Building Carpenter Helper Name | Role | Phone | + +------+ + | Sharon David MD | PCP | | + +------+ + Reason for Visit + +--------+ + | Reason | Onset | Comments | | | Date | | + +--------+ + | MELD Score | 08/06/ | | | | 2019 | | + +--------+ + Encounter Details +--------+ + + + + | Date | Type | Department | Care Team | Description | +--------+ + + + + | 08/06/ | Abstract | Clinical | Vimal Crowe MD | MELD Score | | 2019 | | Transplant Services | [address] | | | | | [address] | [address] [place], | | | | | [place], | [place] [address] | | | | | [place] [address] | [phone] | | | | | [phone] | | | +--------+ + + + [...] as of this encounter Amy Evans - 08/06/2019 8:22 AM PDTEntry verified in [facility] Waitlist. documented [...] [address] | | | | | | [place], [place] | | | | | | [address] | | | | | | [phone] | | | | | | | | +--------+ + + + + | 09/27/ | Telephone-S | Liver Transplant | Vimal Crowe MD | | | 2019 | [place] | | [address] | | | | | | [address], | | | | | | [place] [address] | | | | | | [phone] | | | | | | | [...] Rd | | | | | | [place], [place] | | | | | | [address] | | | | | | [phone] | | | | | | | | +--------+ + + + + documented as of this encounter Procedures + +--------+ + + + | Procedure Name | Priori | Date/Time | Associated Diagnosis | Comments | | | ty | | | | + +--------+ + + + | LAB OTHER | Routin | 08/06/2019 | | Results for this | | | e | | | procedure are in the | | | | | | results section. | + +--------+ + + + documented in this encounter Results LAB OTHER (08/06/2019) + + + + + + | Component | Value | Ref Range | Performed | Pathologist | | | | | At | Signature | + + + + + + | MELD | 34Comment: Calculated | | CALCULATED | | | | Manually Using [employer] MELD | | MANUALLY | | | | Calculator | | | | + + + + + + + + | Specimen | + + | | + + + + + + + | Performing | Address | City/State/Zipcode | Phone Number | | Organization | | | | + + + + + | CALCULATED | [address] [facility] | [place], [place] | | | MANUALLY | | | | + + + + + documented in this encounter Visit Diagnoses Not on filedocumented in this encounter"
--- OUTSIDE RECORDS SUMMARY | ~2020-07-29 | XMS | Clinical Summary ---
Demographics + + + | Address | [address] | | | [place] [address] | + + + | Home Phone [...] [place] | | | | | [address] | | + + + + + Care Team Providers + +------+ + | Care Orthopedics Pediatric Physician Name | Role | Phone | + +------+ + | Sharon David MD | PCP | | + +------+ + Source Comments SEJAL is fully live on both EpicCare Ambulatory and EpicCare InPatient.[facility] Allergies + + + +--------+ + | [...] | + + + +---------+------+------+-------+ | Insulin Pruden | Use as directed for | 150 [...] | | | | | | | -411: 8 | | | | | | [...] + + | Dr. 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 | | +--------+ + + + + [...] | 2019 | [place] | | [address] | | | | | | [address] | | | | | | [place], [place] | | | | | | [address] | | | | | | [phone] | | | | | | | | +--------+ + + + + | 09/27/ | Telephone-S | Liver Transplant | Vimal Crowe MD | | | 2019 | [place] | | [address] | | | | | | [address], | | | | | | [place] [address] | | | | | | [phone] | | | | | | | | +--------+ + + + + | 10/03/ | Appointment | Cardiology | | | | 2019 | | | | | +--------+ + + + + | 10/03/ | Office | Cardiology | Cyril Samuel | | | 2019 | Visit | | MD Patricia [address] [facility] [address] | | | | | | [address] | | | | | | [place], [place] | | | | | | [address] | | | | | | [phone] | | | | | | | [...] | AT,GLUC,CA,PHOS,ALB | | | on CKD ([facility]) | results section. | | ) | | | | | + +--------+ + + + | PROTEIN/CREATININE | Routin | 05/09/2020 | Acute kidney | Results for this | | RATIO, URINE | e | | injury superimposed | procedure are in the | | | | | on CKD ([facility]) | results section. | + +--------+ + [...] | + + + + + | [facility] | [address] | [place] [address] | | | SERVICES, CORE | PARK [...] LABORATORY | [address] | [place] [address] | | | SERVICES, [facility] | | | | | HEALTH [...] | | | LABORATORY | | | BRITISH | | | SERVICES, | | | [...] + + | Performing | Address | City/State/Rustcode | Phone Number | | Organization | | | | + + + + + | [facility] | [address] | [place] [address] | | | SERVICES, [facility] | | | | | HEALTH [...] | + + + + + | [facility] | [address] | [place] [address] | | | SERVICES, CORE | MOISES [...] | + + + + + | [facility] | [address] | [place] [address] | | | SERVICES, CORE | MOISES [...] + + | [facility] - | [address] | [place] | [phone] | | [place] | | | | [...] Testing Performed at: [place] [place] [facility] CLIA: [id number] - [address] | [facility] | | [place] [address] | - [place] | + + + + + + + + | Performing | Address | City/State/Zipcode | Phone Number | | Organization | | | | + + + + + | [facility] - | [address] [place], [place] | [phone] | | [place] | | | | [...] Testing Performed at: [facility] [place] [facility] CLIA: [id number] - [address] | [facility] | | [place] [address] | - [place] | + + + + + + + + | Performing | Address | City/State/Zipcode | Phone Number | | Organization | | | | + + + + + | [facility] - | [address] | [place], [place] | [phone] | | [place] | | | | [...] Testing Performed at: [facility] CLIA: [id number] - [address] | [facility] | | [place] [address] | - [place] | + + + + + + + + | Performing | Address | City/State/Zipcode | Phone Number | | Organization | | | | + + + + + | [facility] - | [address] | [place] | [phone] | | [place] | | | | [...] | | | | | | [place] [address] Patient | | | | | | [...] [address] | [place], [place] | [phone] | | [place] | | | | [...] Testing Performed at: [facility] [place] [facility] CLIA: [id number] - [address] | [facility] | | [place] [address] | - [place] | + + + + + + + + | Performing | Address | City/State/Zipcode | Phone Number | | Organization | | | | + + + + + | [facility] - | [address] | [place] | [phone] | | [place] | | | | [...] [address] | [place] | [phone] | | [place] | | | | [...] | | + +--------+ +--------+-------+ +--------+ | PRODUCTION CORRUGATOR MEDICAID | PRODUCTION CORRUGATOR | [id number] | | | | Medica | | | EASTER | | 018-Pr | | | id | | | [place] | | esent | | | | + +--------+ +--------+-------+ +--------+ | CONTRACTS | TRANSP | [id number] | 08/30/ | | | PPO | | | LANT | | 2019-P | | | | | | CONTRA | | resent | | | | | | CT | | | | | | | | OTHER | | | | | | + +--------+ +--------+-------+ +--------+ | SOLID [employer] TXP | SOLID | [id number] | 03/26/20 | | [address] | Agency | | | ORGAN | | [address] | [address] | | | | TXP | | sent | | [address] | | | | | | | | [place], | | | | | | | | [place] [address] | | + +--------+ +--------+-------+ +--------+ + [...] | 1964 | [id number] | [place] [address] | | | moi | | | 7 (Home) | | + +--------+ +--------+ + + | Steffen Duran | Case | Self | 03/14/ | | [address] | | | Rate | | 1965 | [id number] | [place] | | | | | | 7 (Home) | [address] | + +--------+ +--------+ + + Advance [...]
--- OUTSIDE RECORDS SUMMARY | ~2020-07-29 | XMS | Encounter Summary ---
Demographics + + + | Address | [address] | | | [place] [address] | + + + | Home Phone | | + + + | Preferred Language | Unknown | + + + | Marital Status | Single | + + + | Buddhism Affiliation | NON | + + + | Race | White | + + + | Ethnic Group | Not or | + + + Author + + + | Author | [facility] | + + + | Organization | [facility] | + + + | Address | Unknown | + + + | Phone | Unavailable | + + + Support + + + + + | Name | Relationship | Address | Phone | + + + + + | Doreen Manley | ECON | [address] | | | | | [place] | | | | | [address] | | + + + + + Care Team Providers + +------+ + | Care Chemic Mangler Name | Role | Phone | + +------+ + | Sharon David MD | PCP | | + +------+ + Reason for Visit + +--------+ + | Reason | Onset | Comments | | | Date | | + +--------+ + | Care Coordination | 07/17/ | Lab follow-up -elevated glucose | | | 2019 | | + +--------+ + Encounter Details +--------+ + + + + | Date | Type | Department | Care Team | Description | +--------+ + + + + | 07/17/ | Telephone | Clinical | Haley Fernández, | Care Coordination | | 2019 | | Transplant Services | RN [address] | (Lab follow-up | | | | [address] | [address] | -elevated glucose) | | | | [place], | [place], [place] | | | | | [place] [address] | [address] | | | | | [phone] | | | +--------+ + + + [...] this encounter Miscellaneous Notes Telephone Encounter - Porsche Perdomo RN - 07/17/2019 9:28 AM PDTI called Donell to check in on him and he is hard to understand and sounds somewhat confused and lethargic. He says he feels like his leg is broken and he thinks he fell the other day but is unsure of when, he a lso says that he feels like he can't get up. I asked if he has anyone to take him to the ED and he is unable to answer the question. I told him that I will call his sister Doreen and we are going to get him some help. I called Doreen and she says there isn't anyone to take Donell to the ED so she will call 911 to have him taken via ambulance. She says that he will go to [facility] in [place]. I called and gave report to Beti DONOHUE at [facility] and provide d the [facility] consult line for the provider to discuss possibly transferring Donell to [facility]. I not ified Dr. Crowe and she is in agreement with this plan. elephone Encounter - Haley Fernández RN - 07/17/2019 8:42 AM PDTCalled back to PCP Dr. David's office, and spoke with the nurse Paris to find out if Dr. David is going to see the patient to evaluate the recent elevated glucose levels or if there is a plan in place for evaluation (local ER?). She reports they did not receive the lab results from yesterday. She gave a different fax number and [facility] will re-fax to [phone] now. I also told her the labs were done at [facility]. (Corrected phone and fax numbers for Dr. David's office sent to [facility] team to update in syst em.) Donell is currently not scheduled to see Dr. David. Paris spoke with Dr. David and the patiyamileth paz last week about his elevated glucose, and they are planning to schedule him to see Dr. Pedro carson in July. She will look for the lab results and follow up with Dr. David and the patie nt today. They could possibly see him on 07/19/19. Routing to Dr. Crowe for review. documented in this encounter Plan of Treatment +--------+ + + + + | Date | Type | Specialty | Care Team | Description | +--------+ + + + + | 08/08/ | Telephone-S | Nephrology | Angélica Chao, | | | 2019 | [place] | | [address] | | | | | | [address] | | | | | | [place], [place] | | | | | | [address] | | | | | | [phone] | | | | | | | | +--------+ + + + + | 09/27/ | Telephone-S | Liver Transplant | Vimal Crowe MD | | | 2019 | [place] | | [address] | | | | | | [address], | | | | | | [place] [address] | | | | | | [phone] | | | | | | | | +--------+ + + + + | 10/03/ | Appointment | Cardiology | | | | 2019 | | | | | +--------+ + + + + | 10/03/ | Office | Cardiology | Cyril Samuel | | | 2019 | Visit | | MD Patricia [address] [facility] | | | | | | [address] | | | | | | [place] | | | | | | [address] | | | | | | [phone] | | | | | | | | +--------+ + + + + documented as of this encounter Visit Diagnoses Not on filedocumented in this encounter"
--- OUTSIDE RECORDS SUMMARY | ~2020-07-29 | XMS | Encounter Summary ---
Demographics + + + | Address | [address] | | | [place] [address] | + + + | Home Phone [...] [place] | | | | | [address] | | + + + + + [...] | +--------+ + + + + | 04/24/ | Pharmacy | Outpatient Retail | | | | 2018 | Visit | [facility] | | | | | | [address] | | | | | | [place], [place] | | | | | | [address] | | | | | | [phone] | | | +--------+ + + + [...] Rd | | | | | | [place], [place] | | | | | | [address] | | | | | | [phone] | | | | | | | | +--------+ + + + + | 09/27/ | Telephone-S | Liver Transplant | Vimal Crowe MD | | | 2019 | cheduled | | [address] | | | | | | [place], | | | | | | [place] [address] | | | | | | [phone] | | | | | | | [...] [address] | | | | | | [place], [place] | | | | | | [address] | | | | | | [phone] | | | | | | | | +--------+ + + + + documented as of this encounter Visit Diagnoses Not on filedocumented in this encounter"
--- OUTSIDE RECORDS SUMMARY | ~2020-07-29 | XMS | Encounter Summary ---
Demographics + + + | Address | [address] | | | [place] [address] | + + + | Home Phone | | + + + | Preferred Language | Unknown | + + + | Marital Status | Single | + + + | Confucianist Affiliation | NON | + + + [...] [place] | | | | | [address] | | + + + + + Care Team Providers + +------+ + | Care Bread Distributor Name | Role | Phone | + +------+ + | Sharon David MD | PCP | | + +------+ + Encounter Details +--------+ + + + + | Date | Type | Department | Care Team | Description | +--------+ + + + + | 10/11/ | Pharmacy | Outpatient Retail | | | | 2018 | Visit | [facility] | | | | | | [address] | | | | | | [address] [place], [place] | | | | | | [address] | | | | | | [phone] | | | +--------+ + + + [...] | | | | | | [place], [place] | | | | | | [address] | | | | | | [phone] | | | | | | | | +--------+ + + + + | 09/27/ | Telephone-S | Liver Transplant | Vimal Crowe MD | | | 2019 | cheduled | | [address] | | | | | | [facility] [place], | | | | | | [place] [address] | | | | | | [phone] | | | | | | | [address] | | | | | | [place], [place] | | | | | | [address] | | | | | | [phone] | | | | | | | | +--------+ + + + + documented as of this encounter Visit Diagnoses Not on filedocumented in this encounter"
--- OUTSIDE RECORDS SUMMARY | ~2020-07-29 | XMS | Encounter Summary ---
Demographics + + + | Address | [address] | | | [place] [address] | + + + | Home Phone [...] [place] | | | | | [address] | | + + + + + Care Team Providers + +------+ + | Care Coiler Name | Role | Phone | + +------+ + | Sharon David MD | PCP | | + +------+ + Encounter Details +--------+ + + + + | Date | Type | Department | Care Team | Description | +--------+ + + + + | 04/28/ | Pharmacy | [facility] | | | | 2020 | Visit | [address] | | [address] | | | | | | [place] [address] | | | | | | [phone] | | | +--------+ + + + [...] | | | | | | [place], [place] | | | | | | [address] | | | | | | [phone] | | | | | | | | +--------+ + + + + | 09/27/ | Telephone-S | Liver Transplant | Vimal Crowe MD | | | 2019 | cheduled | | [address] | | | | | | [address], | | | | | | [place] [address] | | | | | | [phone] | | | | | | | [address] Rd | | | | | | [place] | | | | | | [address] | | | | | | [phone] | | | | | | | | +--------+ + + + + documented as of this encounter Visit Diagnoses Not on filedocumented in this encounter"
--- OUTSIDE RECORDS SUMMARY | ~2020-07-29 | XMS | Encounter Summary ---
Demographics + + + | Address | [address] | | | [place] [address] | + + + | Home Phone [...] [place] | | | | | [address] | | + + + + + Care Team Providers + +------+ + | Care Insurance Advisor Name | Role | Phone | + +------+ + | Sharon David MD | PCP | | + +------+ + Encounter Details +--------+ + + + + | Date | Type | Department | Care Team | Description | +--------+ + + + + | 09/11/ | MyChart | [facility] | Tyson Bellamy, | RE: [facility] | | 2019 | Encounter | [facility] | MD [address] | | | | | [address] [place], | | | | | [address] [facility] | [place] [address] | | | | | [facility], | [phone] | | | | | [facility] [address] | | | | | | [place], [place] | | | | | | [address] | | | | | | [phone] | | | +--------+ + + + [...] | 2019 | cheduled | | [address] | | | | | | [address] | | | | | | [place], [place] | | | | | | [address] | | | | | | [phone] | | | | | | | | +--------+ + + + + | 09/27/ | Telephone-S | Liver Transplant | Vimal Crowe MD | | | 2019 | cheduled | | [address] | | | | | | [address], | | | | | | [place] [address] | | | | | | [phone] | | | | | | | [...] Rd | | | | | | [place], [place] | | | | | | [address] | | | | | | [phone] | | | | | | | | +--------+ + + + + documented as of this encounter Visit Diagnoses Not on filedocumented in this encounter"
--- OUTSIDE RECORDS SUMMARY | ~2020-07-29 | XMS | Encounter Summary ---
Demographics + + + | Address | [address] | | | [place] [address] | + + + | Home Phone [...] [place] | | | | | [address] | | + + + + + Care Team Providers + +------+ + | Care Flute Teacher Name | Role | Phone | + +------+ + | Sharon David MD | PCP | | + +------+ + Encounter Details +--------+ + + + + | Date | Type | Department | Care Team | Description | +--------+ + + + + | 08/16/ | Documentati | Clinical | Delmy Pollock, | | | 2019 | on | Transplant Services | RN [address] | | | | | [address] | [address] | | | | | [place], | [place], [place] | | | | | [place] [address] | [address] | | | | | [phone] | | | +--------+ + + + [...] Telephone Encounter - Delmy Pollock RN - 08/16/2019 5:28 PM PDTLiver Transplant Admiss ion Regulatory Requirements: Date and time of Transplant: 08/16/2019 3:41 AM. Patient delisted from [facility] waiting list within 24 hours. documented in this e ncounter Plan of [...] Rd | | | | | | [place], [place] | | | | | | [address] | | | | | | [phone] | | | | | | | | +--------+ + + + + | 09/27/ | Telephone-S | Liver Transplant | Vimal Crowe MD | | | 2019 | [place] | | [address] | | | | | | [address], | | | | | | [place] [address] | | | | | | [phone] | | | | | | | [...] [place] | | | | | | [address] | | | | | | [phone] | | | | | | | | +--------+ + + + + documented as of this encounter Visit Diagnoses Not on filedocumented in this encounter"
--- OUTSIDE RECORDS SUMMARY | ~2020-07-29 | XMS | Encounter Summary ---
Demographics + + + | Address | [address] | | | [place] [address] | + + + | Home Phone [...] [place] | | | | | [address] | | + + + + + Care Team Providers + +------+ + | Care Restaurant Area Manager Name | Role | Phone | + +------+ + | Sharon David MD | PCP | | + +------+ + Encounter Details +--------+ + + + + | Date | Type | Department | Care Team | Description | +--------+ + + + + | 05/10/ | Abstract | Clinical | Vimal Crowe MD | | | 2019 | | Transplant Services | [address] | | | | | [address] | [address] [place], | | | | | [place], | [place] [address] | | | | | [place] [address] | [phone] | | | | | [phone] | | | +--------+ + + + [...] Rd | | | | | | [place], [place] | | | | | | [address] | | | | | | [phone] | | | | | | | | +--------+ + + + + | 09/27/ | Telephone-S | Liver Transplant | Vimal Crowe MD | | | 2019 | [place] | | [address] | | | | | | [facility] [address] [place], | | | | | | [place] [address] | | | | | | [phone] | | | | | | | | +--------+ + + + + | 10/03/ | Appointment | Cardiology | | | | 2019 | | | | | +--------+ + + + + | 10/03/ | Office | Cardiology | Cyril Samuel | | | 2019 | Visit | Darren Gomez MD [address] | | | | | | [address] | | | | | | [place], [place] | | | | | | [address] | | | | | | [phone] | | | | | | | [...] Results LIVER TRANSPLANT POST PANEL (EXT RESULTS) (05/09/2020 8:15 AM PDT) + + + + + [...] + + | CHLORIDE, | 101 | mmol/L | [facility] | | | [...] + + + + | GLUCOSE, | 392 (A) | 65 - 110 mg/dL | [facility] | | | PLASMA | | | LAB - | | | (LAB) | | | [place] | | + + + + + + | BUN, PLASMA | 48 | mg/dL | [facility] | | | (LAB) | | | LAB - | | | | | | [place] | | + + + + + + | CREATININE | 2.26 | mg/dL | [facility] | | | [...] + + + + | PHOSPHORUS, | 3.9 | mg/dL | [facility] | | | [...] + + + | TOTAL | 6.2 | g/dL | [facility] | | | [...] + + + + | BILIRUBIN | 0.3 | Transcutaneous | [facility] | | | [...] + + + | URIC ACID, | 3.9 | mg/dL | [facility] | | | PLASMA | | | LAB - | | | (LAB) | | | [place] | | + + + + + + | WHITE CELL | 4.7 | K/cu mm | [facility] | | | COUNT | | | LAB - | | | | | | [place] | | + + + + + + | HEMATOCRIT | 31.6 | % | [facility] | | | | | | LAB - | | | | | | [place] | | + + + + + + | HEMOGLOBIN | 10.7 (A) | 13.5 - 17.5 | [facility] | | | | | g/dL | LAB - | | | | | | [place] | | + + + + + + | PLATELET | 96 | K/cu mm | [facility] | | | COUNT | | | LAB - | | | | | | [place] | | + + + + + + | TACROLIMUS | 3.6 | ng/mL | [facility] | | | [address] | [place] | [phone] | | [place] | | | | + + + + + documented in this encounter Visit Diagnoses Not on filedocumented in this encounter"
--- OUTSIDE RECORDS SUMMARY | ~2020-07-29 | XMS | Encounter Summary ---
Demographics + + + | Address | [address] | | | [place] [address] | + + + | Home Phone [...] [place] | | | | | [address] | | + + + + + Care Team Providers + +------+ + | Care Environmental Control Administrator Name | Role | Phone | [...] + + + + | 06/16/ | Committee | Clinical | Haley Fernández, | Committee Review | | 2019 | Review | Transplant Services | RN [address] | Decision | | | | [address] | [address] | | | | | [place], | [place], [place] | | | | | [place] [address] | [address] | | | | | [phone] | | | +--------+ + + + [...] this encounter Miscellaneous Notes Committee Review - 06/18/2019 6:59 AM PDTLiver Transplant Committee Review Decision and Re commendations Pre HALFWAY: Send letter Committee Date: 06/18/19 Patient Name: Steffen Duran : 1965 Age: 54 y.o. Discussion Type: Re-present - recommendations complete. Discuss myocardial iron. Liver disease precludes the more common chelator Deferasirox. Dr. Bellamy recommended a tr ial of deferiprone - however when it was ordered the pharmacy reported the cost per month to be around $30,000 - Hem following up to see if there are other options. Chairing MD: Dr. Pinon Disciplines Present: Medicine Attending, Surgery Attending, Food Cooking Machine Operator, Grout Machine Tender, Dietitian and Transplant Leadership Transplant Nurse: Haley Fernández Referring Physician for Transplant: [facility]: (Not currently on dialysis) Based on the Selection Criteria, the following decision has been made for the patient's tra nsplant candidacy: Decision: Remain DEFERRED - Dr. Crowe to contact Dr. Bellamy to ask 1. Does his degree of myocardial iron increase his periop risk? 2. How long does chelation take to see results? Re-discuss next Committee Review. Patient and sister notified and all questions answered. No letters will be sent at this ti tn as there is no change in patient status. 04/30/19 DEFERRED - Providers Intent: HCV +: Yes Special Donor Type: None Does patient s medical condition and labwork at this time allow dental extractions if rec ommended by dentist: No, based on labs from 04/23/19: PLT 50, INR 2.94. Recommendations to be completed prior to listin. Follow up with cardiology to re-evaluate since cardiac MRI done on 04/24/19. New referr al sent. DONE 05/18/19, [facility], Dr. 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 He has now developed significant transfusions associated iron over load with detectable liver and myocardial iron overload. Difficult situation as his liver di sease precludes the more common chelator Deferasirox. He also lives quite far from [facility] in [place], making the needed routine followup difficult. We discussed a trial of deferipron e with local monitoring ([facility]). He will need to see a local chief medical technologist in the [facility] area for symptoms monitoring. He was agreeable to that plan. I will see him back in 6mo f or revaluation. If he should proceed to transplant we can stop the chelation and [facility] [address] [facility] [address]: The medication was ordered and from what I can see the cost for a one month supply would quintana ve been nearly $30,000! I will send a message to the pharmacy to see why none of this was co mmunicated and if there are other options. 2. Urology Consult due to red blood cells, 6/hpf in urine on 04/22/19. Ordered - DONE 05/20/19, Dr. Diego, Urology Consult, [facility]: UA today: Moderate blood (a previous one [...] negative urine nicotine and cotinine screens from [facility] dated 05/26/19, and 06/09/19. Sent all to director decision support to post and scan on 06/16/19 4. Continue to engage in relapse prevention. DONE 06/05/19 Chacho Medina planning to f/u with counselor and sister. 06/08/19 Social Work note - OFFICE AUDITOR spoke with pt's substance use counselor, Karolyn Xie from [facility] [employer] [facility] today ([phone]). Karolyn confirmed that pt continues to engage in weekly counseling with her focusing on relapse prevention and building coping skills. He also provides UA's, which have all been negative. Their next appointment is set for tomorrow 06/09/2019. Recommendation status from a psychosocial perspective: Complete 5. CT abdomen now. Ordered - DONE 05/19/19 Done at [facility] 05/21/19 Dr. Garcia reviewed - no surgical issues. Sent to Dr. Crowe for review as well. On checklist for US in 6 months. Recommendations to be completed but not required prior to listin. Ongoing screening for hepatocellular carcinoma: Abdominal ultrasound alternating with C T scan and AFP blood draw every 6 months. Scans should be done at [facility], combined with your p hysician appointments. US & AFP due 10/23/19. CT & AFP due 04/22/20. 05/19/19 CT done at [facility] - Dr. Garcia reviewed 05/21/19, sent to [...] Porsche Perdomo RN, * Referred today to [facility] Hematology. 5. 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 Ordered 6. You are at risk for complications after dental extractions. Per [facility] Liver Transplant p olicy, we recommend checking a CBC and PT [...] level normalizes. 11. Vitamin D supplementation: Ergocalciferol 31545 units weekly x 6-8 weeks, then re-chec k 25-OH vit D; can give 1000 to 2000 units cholecalciferol daily when 25-OH vit D [address] 12. Vitamin A supplementation: 63871 IU (International Units, oral capsule). Take 2 capsul es: 03227 IU by mouth 3 times a week [...] | | 2019 | [place] | | [address] | | | | | | [address] | | | | | | [place], [place] | | | | | | [address] | | | | | | [phone] | | | | | | | | +--------+ + + + + | 09/27/ | Telephone-S | Liver Transplant | Vimal Crowe MD | | | 2019 | cheduled | | [address] | | | | | | [address] | | | | | [place] [address] | | | | | | [phone] | | | | | | | [...] [address] | | | | | | [place] | | | | | | [address] | | | | | | [phone] | | | | | | | | +--------+ + + + + documented as of this encounter Visit Diagnoses Not on filedocumented in this encounter
--- OUTSIDE RECORDS SUMMARY | ~2020-07-29 | XMS | Encounter Summary ---
Demographics + + + | Address | [address] | | | [place] [address] | + + + | Home Phone [...] [place] | | | | | [address] | | + + + + + Care Team Providers + +------+ + | Care Tape Keller Operator Name | Role | Phone | + +------+ + | Sharon David MD | PCP | | + +------+ + Encounter Details +--------+ + + + + | Date | Type | Department | Care Team | Description | +--------+ + + + + | 01/23/ | Telephone | [facility] | Vimal Crowe MD | | | 2019 | | [facility] [address] | [address] | | | | | [address] | [address] [place], | | | | | for Health and | [place] [address] | | | | | [place] [address] | [phone] | | | | | [place], [place] | | | | | | [address] | | | | | | [phone] | | | +--------+ + + + [...] Telephone Encounter - Jaquelin Levy RN - 01/28/2019 9:33 AM PDTReturned call to [facility] confirming that yes, we are planning to repeat labs (CBC, CMP, INR, d-bili) in ab out 2 weeks No further questions elephone Encounter - Ester Duckworth - 01/28/2019 8:36 AM PDTDallas from [facility] lab s called, said they received order for same labs pt had drawn on 01/22. This was faxed to them last night at around 4:30, she said. Advised I would send message to medical staff.Rosalind martin signed by Ester Duckworth at 01/28/2019 8:36 AM PDTTelephone Encounter - Prince Serna MA - 01/23/2019 10:46 AM PDTSpoke with [facility] and confirmed with them that orders sen t again was to make sure they had them for when pt was going in She said pt already completed labs 01/22 She stated she will toss the duplicate orders elephone Encounter - Ester Duckworth - 01/23/2019 9:41 AM PDTRana LVM 01/23 at 9:21 AM Said there were some labs ordered for pt at a site in [place], [place]. They had questions abo ut the labs and seeks call back. documented in this encounter Plan of Treatment [...] Rd | | | | | | [place], [place] | | | | | | [address] | | | | | | [phone] | | | | | | | | +--------+ + + + + | 09/27/ | Telephone-S | Liver Transplant | Vimal Crowe MD | | | 2019 | [place] | | [address] | | | | | | [facility] [address] [place], | | | | | | [place] [address] | | | | | | [phone] | | | | | | | | +--------+ + + + + | 10/03/ | Appointment | Cardiology | | | | 2019 | | | | | +--------+ + + + + | 10/03/ | Office | Cardiology | Cyril Samuel | | | 2019 | Visit | | MD Patricia [address] | | | | | | [address] | | | | | | [place] | | | | | | [address] | | | | | | [phone] | | | | | | | | +--------+ + + + + documented as of this encounter Visit Diagnoses Not on filedocumented in this encounter"
--- OUTSIDE RECORDS SUMMARY | ~2020-07-29 | XMS | Encounter Summary ---
Demographics + + + | Address | [address] | | | [place] [address] | + + + | Home Phone [...] [place] | | | | | [address] | | + + + + + Care Team Providers + +------+ + | Care Hand Or Machine Paster Name | Role | Phone | + +------+ + | Sharon David MD | PCP | | + +------+ + Encounter Details +--------+--------+ + + + | Date | Type | Department | Care Team | Description | +--------+--------+ + + + | 07/28/ | Travel [...] Rd | | | | | | [place], [place] | | | | | | [address] | | | | | | [phone] | | | | | | | | +--------+ + + + + | 09/27/ | Telephone-S | Liver Transplant | Vimal Crowe MD | | | 2019 | cheduled | | [address] | | | | | | [address], | | | | | | [place] [address] | | | | | | [phone] | | | | | | | [...] Rd | | | | | | [place], [place] | | | | | | [address] | | | | | | [phone] | | | | | | | | +--------+ + + + + documented as of this encounter Visit Diagnoses Not on filedocumented in this encounter"
--- OUTSIDE RECORDS SUMMARY | ~2020-07-29 | XMS | Encounter Summary ---
Demographics + + + | Address | [address] | | | [place] [address] | + + + | Home Phone | | + + + | Preferred Language | Unknown | + + + | Marital Status | Single | + + + | Hindu Affiliation | Unknown | + + + | Race | White | + + + | Ethnic Group | Not or | + + + Author + + + | Author | [facility] | | | and [place] | + + + | Organization | [facility] | | | and [place] [...] Team Providers + +------+ + | Care Physical Biochemist Name | Role | Phone | + +------+ + | Sharon David MD | PCP | | + +------+ + Encounter Details +--------+ + + + + | Date | Type | Department | Care Team | Description | +--------+ + + + + | 08/20/ | Orders Only | [facility] | David Quevedo MD | | | 2018 | | [address] | [address] | | | | | [place], [place] | [place] | | | | | [address] | [address] | | | | | [phone] | | | +--------+ + + + [...] [address] | | | | | | [place] [address] | | | | | | [phone] | | | | | | | | +--------+---------+ + + + documented as of this encounter Procedures + +--------+ + + + | Procedure Name | Priori | Date/Time | Associated Diagnosis | Comments | | | ty | | | | + +--------+ + + + | URINALYSIS WITH | Routin | 08/20/2018 | | Results for this | | MICROSCOPIC IF | e | 10:43 AM | | procedure are in the | | INDICATED | | PDT | | results section. | + +--------+ + + + | URINALYSIS, | Routin | 08/20/2018 | | Results for this | | MICROSCOPIC ONLY | e | 10:43 AM | | procedure are in the | | | | PDT | | results section. | + +--------+ + + + | HISTORICAL | Routin | 08/20/2018 | | Results for this | | MICROBIOLOGY RESULT | e | 10:40 AM | | procedure are in the | | | | PDT | | results section. | + +--------+ + + + documented in this encounter Results Urinalysis, Microscopic Only (08/20/2018 10:43 AM PDT) + + + + + + | Component | Value | Ref Range | Performed | Pathologist | | | | | At | Signature | + + + + + + | WBC, UA | 0-2 | 0 - 5 /[HPF] | EXTERNAL | | | | | | LAB | | + + + + + + | RBC, UA | 26-50 | 0 - 2 /[HPF] | EXTERNAL | | | | | | LAB | | + + + + + + | Epithelial | 1-5 | /[LPF] | EXTERNAL | | | Cells | | | LAB | | + + + + + + | Bacteria, | NONE SEEN | | EXTERNAL | | | UA | | | LAB | | + + + + + + + + | Specimen | + + | | + + + +---------+ + + | Performing | Address | City/State/Zipcode | Phone Number | | Organization | | | | + +---------+ + + | EXTERNAL LAB | | | | + +---------+ + + Urinalysis with Microscopic if Indicated (08/20/2018 10:43 AM PDT) + + + + + + | Component | Value | Ref Range | Performed | Pathologist | | | | | At | Signature | + + + + + + | Color | DK YELLOW | | EXTERNAL | | | | | | LAB | | + + + + + + | Clarity, | CLEAR | | EXTERNAL | | | Urine | | | LAB | | + + + + + + | Specific | 1.010 | 1.002 - 1.030 | EXTERNAL | | | [place], | | | LAB | | | Urine | | | | | + + + + + + | Leukocyte | NEGATIVE | | EXTERNAL | | | Esterase, | | | LAB | | | Urine | | | | | + + + + + + | Nitrite, | NEGATIVE | | EXTERNAL | | | Urine | | | LAB | | + + + + + + | Urobilinoge | 0.2 | mg/dL | EXTERNAL | | | n, Urine | | | LAB | | + + + + + + | Protein, | 100 (A) | mg/dL | EXTERNAL | | | Urine | | | LAB | | + + + + + + | pH, Urine | 6.0 | 5.0 - 8.0 | EXTERNAL | | | | | | LAB | | + + + + + + | Blood, | LARGE (A) | | EXTERNAL | | | Urine | | | LAB | | + + + + + + | Ketones | NEGATIVE | mg/dL | EXTERNAL | | | | | | LAB | | + + + + + + | Bilirubin, | NEGATIVE | | EXTERNAL | | | Urine | | | LAB | | + + + + + + | Glucose, | NEGATIVE | mg/dL | EXTERNAL | | | Urine | | | LAB | | + + + + + + + + | Specimen | + + | Urine specimen | | (specimen) | + + + +---------+ + + | Performing | Address | City/State/Zipcode | Phone Number | | Organization | | | | + +---------+ + + | EXTERNAL LAB | | | | + +---------+ + + HISTORICAL MICROBIOLOGY RESULT (08/20/2018 10:40 AM PDT) + + | Specimen | + + | | + + + + + | Narrative | Performed At | + + + | JAK2 See Below Report | EXTERNAL LAB | | Number: [id number] RESULTS See Notes Results are | | | NEGATIVE for JAK2 V617F mutation. NOTES See Notes Results | | | of JAK2 testing are NEGATIVE, indicating the V617F (1849G>T) mutation | | | is NOT DETECTED in the JAK2 gene. This mutation, which | | | results in the constitutive activation of the JAK2 tyrosine kinase, | | | is present in the majority of patients with polycythemia vera, and in | | | a subset of other myeloproliferative neoplasms. Constitutive | | | activation of the JAK2 tyrosine kinase results in myeloproliferation | | | in these disorders. However, approximately 5% of polycythemia vera | | | and 50% of essential thrombocythemia and primary myelofibrosis cases | | | may be negative for this mutation. | | | Nucleic acid studies do not constitute a definitive diagnostic test | | | for all chronic myeloproliferative neoplasms but, together with other | | | clinicopathologic findings, can support their diagnosis. If not | | | already performed, a bone marrow examination and full c ytogenetic | | | analysis (or review of previously performed examinations) may be very | | | useful. Method: JAK2 | | | mutation analysis includes isolation of genomic DNA, gene | | | amplification by quantitative PCR and probe analysis to determine the | | | presence of the V617F (1849G>T) mutation. As assessed by mutant | | | DNA dilution experiments, this assay can detect this mutation when | | | present at levels as low as 1%. This assay does not allow for | | | distinction between a homozygous and heterozygous mutation, or mixed | | | zygosity. Technical Note: A subset of patients with | | | myeloproliferative neoplasms (MPNs) will be negative for the JAK2 | | | mutation. Since the V617F mutation typically is a somatic mutation, | | | peripheral blood specimens with predominantly normal lymphocytes, or | | | other cells not carrying this mutation, may have mutation levels | | | below the limit of detection for this assay. Genetic testing errors | | | may result from trace contamination of PCR reactions and from rare ge | | | netic variants that may interfere with analysis. | | | References: - Halina R, Boy Wong. Is bone | | | marrow fibrosis the real problem? Blood. 2006;107(9):0048-4744. - | | | Johan CHEEK, Jone S, Roscoe K, Dee K, Shilo C, et al. Widespread | | | occurrence of the JAK2 V617F mutation in chronic myeloproliferative | | | disorders. Blood.; 2004Jul 05;106(6):2162-8. - Marcelle Al. Molecular | | | basis of the diagnosis and treatment of polycythemia vera and | | | essential thrombocythemia. Blood. 2006;107(11):4756-5676. JAK2 | | | 0.00 ELECTRONIC SIGNATURE See Notes Electronically | | | signed by: Meg Rosario Molecular | | | Technologist II 08/22/2018 REPORT LINK See Notes | | | [email or web address] LEGAL DISCLAIMER | | | See Notes The clinical results included as plain text in this HL7 | | | electronic file transmission DO NOT represent the complete results | | | of the tests performed by [employer] for this patient. We strongly | | | encourage you to consult the full report attached to this | | | transmission or access the full report on our secure web site at | | | [email or web address] | | + + + + +---------+ + + | Performing | Address | City/State/Zipcode | Phone Number | | Organization | | | | + +---------+ + + | EXTERNAL LAB | | | | + +---------+ + + documented in this encounter Visit Diagnoses Not on filedocumented in this encounter"
--- OUTSIDE RECORDS SUMMARY | ~2020-07-29 | XMS | Encounter Summary ---
Demographics + + + | Address | [address] | | | [place] [address] | + + + | Home Phone [...] Author + + + | Author | [facility] | + + + | Organization | [facility] | + + + | [...] [place] | | | | | [address] | | + + + + + Care Team Providers + +------+ + | Care Logistics Service Representative Name | Role | Phone | + +------+ + | Sharon David MD | PCP | | + +------+ + Encounter Details +--------+ + + + + | Date | Type | Department | Care Team | Description | +--------+ + + + + | 11/26/ | Pharmacy | [facility] | | | | 2020 | Visit | [address] | | | | | | [address] | | | | | | [place] [address] | | | | | | [phone] | | | +--------+ + + + [...] Rd | | | | | | [place], [place] | | | | | | [address] | | | | | | [phone] | | | | | | | | +--------+ + + + + | 09/27/ | Telephone-S | Liver Transplant | Vimal Crowe MD | | | 2019 | cheduled | | [address] | | | | | | [address], | | | | | | [place] [address] | | | | | | [phone] | | | | | | | [...] Rd | | | | | | [place] | | | | | | [address] | | | | | | [phone] | | | | | | | | +--------+ + + + + documented as of this encounter Visit Diagnoses Not on filedocumented in this encounter"
--- OUTSIDE RECORDS SUMMARY | ~2020-07-29 | XMS | Encounter Summary ---
Demographics + + + | Address | [address] | | | [place] [address] | + + + | Home Phone [...] [place] | | | | | [address] | | + + + + + Care Team Providers + +------+ + | Care Powder Blender Name | Role | Phone | + +------+ + | Sharon David MD | PCP | | + +------+ + Encounter Details +--------+ + + + + | Date | Type | Department | Care Team | Description | +--------+ + + + + | 12/14/ | Pharmacy | [facility] | | | | 2020 | Visit | [address] | | [address] | [address] | | | | | | [place] [address] | | | | | | [phone] | | | +--------+ + + + [...] Rd | | | | | | [place], [place] | | | | | | [address] | | | | | | [phone] | | | | | | | | +--------+ + + + + | 09/27/ | Telephone-S | Liver Transplant | Vimal Crowe MD | | | 2019 | cheduled | | [address] | | | | | | [address], | | | | | | [place] [address] | | | | | | [phone] | | | | | | | [...] Rd | | | | | | [place] | | | | | | [address] | | | | | | [phone] | | | | | | | | +--------+ + + + + documented as of this encounter Visit Diagnoses Not on filedocumented in this encounter"
--- OUTSIDE RECORDS SUMMARY | ~2020-07-29 | XMS | Encounter Summary ---
Demographics + + + | Address | [address] | | | [place] [address] | + + + | Home Phone [...] [place] | | | | | [address] | | + + + + + Care Team Providers + +------+ + | Care Sap Bods Developer Name | Role | Phone | + +------+ + | Sharon David MD | PCP | | + +------+ + Encounter Details +--------+ + + + + | Date | Type | Department | Care Team | Description | +--------+ + + + + | 06/16/ | Abstract | Clinical | Vimal Crowe MD | | | 2019 | | Transplant Services | [address] | | | | | [address] | [address] [place], | | | | | [place], | [place] [address] | | | | | [place] [address] | [phone] | | | | | [phone] | | | +--------+ + + + [...] Rd | | | | | | [place], [place] | | | | | | [address] | | | | | | [phone] | | | | | | | | +--------+ + + + + | 09/27/ | Telephone-S | Liver Transplant | Vimal Crowe MD | | | 2019 | [place] | | [address] | | | | | | [facility] [address] [place], | | | | | | [place] [address] | | | | | | [phone] | | | | | | | | +--------+ + + + + | 10/03/ | Appointment | Cardiology | | | | 2019 | | | | | +--------+ + + + + | 10/03/ | Office | Cardiology | Cyril Samuel | | | 2019 | Visit | Darren Gomez MD [address] | | | | | | [address] | | | | | | [place], [place] | | | | | | [address] | | | | | | [phone] | | | | | | | [...] Results LIVER TRANSPLANT POST PANEL (EXT RESULTS) (06/16/2020 9:20 AM PDT) + + + + + [...] + + + + | GLUCOSE, | 113 | | [facility] | | | PLASMA | | | LAB - | | | (LAB) | | | [place] | | + + + + + + | BUN, PLASMA | 55 | mg/dL | [facility] | | | (LAB) | | | LAB - | | | | | | [place] | | + + + + + + | CREATININE | 3.02 | mg/dL | [facility] | | | PLASMA | | | LAB - | | | (LAB) | | | [place] | | + + + + + + | CALCIUM, | 10.0 | mg/dL | [facility] | | | [...] + + + + | MAGNESIUM,P | 2.7 | mg/dL | [facility] | | | [...] + + + + | BILIRUBIN | 0.6 | Transcutaneous | [facility] | | | [...] + + + | ALK PHOS | 91 | U/L | [facility] | | | | | | LAB - | | | | | | [place] | | + + + + + + | AST(SGOT) | 19 | U/L | [facility] | | | | | | LAB - | | | | | | [place] | | + + + + + + | ALT (SGPT) | 21 | U/L | [facility] | | | | | | LAB - | | | | | | [place] | | + + + + + + | URIC ACID, | 8.2 | mg/dL | [facility] | | | [...] + + + + | HEMATOCRIT | 30.1 | % | [facility] | | | | | | LAB - | | | | | | [place] | | + + + + + + | PLATELET | 130 | K/cu mm | [facility] | | | COUNT | | | LAB - | | | | | | [place] | | + + + + + + | TACROLIMUS | 5.8 | ng/mL | [facility] | | | [address] | [place] | [phone] | | [place] | | | | + + + + + documented in this encounter Visit Diagnoses Not on filedocumented in this encounter"
--- OUTSIDE RECORDS SUMMARY | ~2020-07-29 | XMS | Encounter Summary ---
Demographics + + + | Address | [address] | | | [place] [address] | + + + | Home Phone [...] [place] | | | | | [address] | | + + + + + Care Team Providers + +------+ + | Care Ear Mold Laboratory Technician Name | Role | Phone | + +------+ + | Sharon David MD | PCP | | + +------+ + Encounter Details +--------+ + + + + | Date | Type | Department | Care Team | Description | +--------+ + + + + | 05/08/ | Telephone | Liver Transplant | Adam, | | | 2019 | | at [facility] [address] | | | | | [address] | [address] | | | | | [address] | [place], [place] | | | | | [place], [place] | [address] | | | | | [address] | [phone] | | | | | [phone] | | | +--------+ + + + [...] this encounter Miscellaneous Notes Telephone Encounter - Aamris Medina LCSW - 05/08/2019 9:41 AM PDTLiver Transplant So cial Work Note: JACOBY received phone call from pt's [facility] counselor Meera Xie following up on the fax she h ad sent. Senior Painter confirmed fax was received. Meera shared she had an apt to meet with pt this week, however had to cancel for her own health reasons. She is planning to contact pt today to get another apt scheduled. WINIFRED Mckenzie LCSW Clinical Transplant Float Tail Board Worker Pager: [phone] signed by Amaris Medina LCSW at 05/08/2019 11:04 AM PDTdocu mented in this encounter Plan of Treatment +--------+ + + + + | Date | Type | Specialty | Care Team | Description | +--------+ + + + + | 08/08/ | Telephone-S | Nephrology | Angélica Chao, | | 2019 | [place] | | [address] | | | | | | [address] | | | | | | [place], [place] | | | | | | [address] | | | | | | [phone] | | | | | | | | +--------+ + + + + | 09/27/ | Telephone-S | Liver Transplant | Vimal Crowe MD | | 2019 | [place] | | [address] | | | | | | [address], | | | | | | [place] [address] | | | | | | [phone] | | | | | | | | +--------+ + + + + | 10/03/ | Appointment | Cardiology | | | | 2019 | | | | | +--------+ + + + + | 10/03/ | Office | Cardiology | Cyril Samuel | | | 2020 | Visit | | MD Patricia [address] [facility] | | | | | | [address] | | | | | | [facility] [place] | | | | | | [address] | | | | | | [phone] | | | | | | | | +--------+ + + + + documented as of this encounter Visit Diagnoses Not on filedocumented in this encounter"
--- OUTSIDE RECORDS SUMMARY | ~2020-07-29 | XMS | Encounter Summary ---
Demographics + + + | Address | [address] | | | [place] [address] | + + + | Home Phone [...] [place] | | | | | [address] | | + + + + + Care Team Providers + +------+ + | Care Recreation Programmer Name | Role | Phone | + +------+ + | Sharon David MD | PCP | | + +------+ + Encounter Details +--------+ + + + + | Date | Type | Department | Care Team | Description | +--------+ + + + + | 07/30/ | MyChart | Liver Transplant | Vimal Crowe MD | RE: Steffen Duran | | 2018 | Encounter | at [facility] [address] | [address] | | | | | [address] | [address] [place], | | | | | Physician's | [place] [address] | | | | | [address] [place] [address] | [phone] | | | | | [place], [place] | | | | | | [address] | | | | | | [phone] | | | +--------+ + + + [...] Rd | | | | | | [place], [place] | | | | | | [address] | | | | | | [phone] | | | | | | | | +--------+ + + + + | 09/27/ | Telephone-S | Liver Transplant | Vimal Crowe MD | | | 2019 | [place] | | [address] | | | | | | [address], | | | | | | [place] [address] | | | | | | [phone] | | | | | | | [...] Rd | | | | | | [place], [place] | | | | | | [address] | | | | | | [phone] | | | | | | | | +--------+ + + + + documented as of this encounter Visit Diagnoses Not on filedocumented in this encounter"
--- OUTSIDE RECORDS SUMMARY | ~2020-07-29 | XMS | Encounter Summary ---
Demographics + + + | Address | [address] | | | [place] [address] | + + + | Home Phone [...] Author + + + | Author | [facility] | + + + | Organization | [facility] | + + + | [...] [place] | | | | | [address] | | + + + + + Care Team Providers + +------+ + | Care Musician Instrumental Name | Role | Phone | + +------+ + | Sharon David MD | PCP | | + +------+ + Encounter Details +--------+ + + + + | Date | Type | Department | Care Team | Description | +--------+ + + + + | 05/22/ | Pharmacy | Pharmacy @ [facility] | | | | 2019 | Visit | [address] | | | | | | [address] Mailcode: | | | | | | [facility] | | | | | | and Healing, | | | | | | Building [address] | | | | | | [place], [place] | | | | | | [address] | | | +--------+ + + + [...] Rd | | | | | | [place], [place] | | | | | | [address] | | | | | | [phone] | | | | | | | | +--------+ + + + + | 09/27/ | Telephone-S | Liver Transplant | Vimal Crowe MD | | | 2019 | [place] | | [address] | | | | | | [facility] [address] [place], | | | | | | [place] [address] | | | | | | [phone] | | | | | | | [...] Rd | | | | | | [place] | | | | | | [address] | | | | | | [phone] | | | | | | | | +--------+ + + + + documented as of this encounter Visit Diagnoses Not on filedocumented in this encounter"
--- OUTSIDE RECORDS SUMMARY | ~2020-07-29 | XMS | Encounter Summary ---
Demographics + + + | Address | [address] | | | [place] [address] | + + + | Home Phone [...] [place] | | | | | [address] | | + + + + + Care Team Providers + +------+ + | Care Video Poker Floorman Name | Role | Phone | + +------+ + | Sharon David MD | PCP | | + +------+ + Encounter Details +--------+ + + + + | Date | Type | Department | Care Team | Description | +--------+ + + + + | 09/14/ | Garage Door Opener Installer | Liver Transplant | Nisreen Chakraborty, | | | 2018 | | at [facility] [address] | PA-C [address] | | | | | [address] | [address] | | | | | Physician's | [place], [place] | | | | | [address], 2nd floor | [address] | | | | | [place], [place] | [phone] | | | | | [address] | | | | | | [phone] | | | +--------+ + + + [...] this encounter Miscellaneous Notes Telephone Encounter - Nisreen Chakraborty PA-C - 09/14/2019 9:56 AM PSTPatient seen briefly af ter labs. Called in worried about a fluid pocket near his incision. On exam, small 2 cm by 2 cm blister had unroofed, with no output. No erythema or pain near the area. Advised to keep it open to air at home and to not put any creams or lotions on it. Support had questions about insulin, and said her med list no longer had her lispro or NPH. Discussed what was in Pattie Ignacio last outpatient visit note, to stop meal time Lispro, co ntinue SSI Lispro, and use NPH 17/6u. Encouraged to call with sugars lower than 100 or highe r than 300. All other questions answered. Nisreen Chakraborty document ed in this encounter Plan of Treatment +--------+ + + + + | Date | Type | Specialty | Care Team | Description | +--------+ + + + + | 08/08/ | Telephone-S | Nephrology | Angélica Chao, | | | 2019 | [place] | | [address] | | | | | | [address] | | | | | | [place], [place] | | | | | | [address] | | | | | | [phone] | | | | | | | | +--------+ + + + + | 09/27/ | Telephone-S | Liver Transplant | Vimal Crowe MD | | | 2019 | [place] | | [address] | | | | | | [facility] [place], | | | | | | [place] [address] | | | | | | [phone] | | | | | | | | +--------+ + + + + | 10/03/ | Appointment | Cardiology | | | | 2019 | | | | | +--------+ + + + + | 10/03/ | Office | Cardiology | Cyril Samuel | | | 2019 | Visit | | MD Patricia [address] | | | | | | [address] | | | | | | [place] | | | | | | [address] | | | | | | [phone] | | | | | | | | +--------+ + + + + documented as of this encounter Visit Diagnoses Not on filedocumented in this encounter"
--- OUTSIDE RECORDS SUMMARY | ~2020-07-29 | XMS | Encounter Summary ---
Demographics + + + | Address | [address] | | | [place] [address] | + + + | Home Phone [...] [place] | | | | | [address] | | + + + + + Care Team Providers + +------+ + | Care Parts Counterman Name | Role | Phone | + +------+ + | Sharon David MD | PCP | | + +------+ + Encounter Details +--------+ + + + + | Date | Type | Department | Care Team | Description | +--------+ + + + + | 07/21/ | Pharmacy | [facility] | | | | 2020 | Visit | [address] | | | | | | [address] | | | | | | [place] [address] | | | | | | [phone] | | | +--------+ + + + [...] Rd | | | | | | [place], [place] | | | | | | [address] | | | | | | [phone] | | | | | | | | +--------+ + + + + | 09/27/ | Telephone-S | Liver Transplant | Vimal Crowe MD | | | 2019 | [place] | | [address] | | | | | | [address], | | | | | | [place] [address] | | | | | | [phone] | | | | | | | [...] Rd | | | | | | [place] | | | | | | [address] | | | | | | [phone] | | | | | | | | +--------+ + + + + documented as of this encounter Visit Diagnoses Not on filedocumented in this encounter"
--- OUTSIDE RECORDS SUMMARY | ~2020-07-29 | XMS | Encounter Summary ---
Demographics + + + | Address | [address] | | | [place] [address] | + + + | Home Phone [...] [place] | | | | | [address] | | + + + + + Care Team Providers + +------+ + | Care Marketing Director Assisted Living Name | Role | Phone | + [...] | | 2019 | Encounter | at [facility] [address] | ALEX Quintanilla [address] | Transplant-2 | | | | [facility] | [address] [place], | | | | | Health and Healing, | [place] [address] | | | | | | [phone] | | | | | Floor [place], [place] | | | | | | [address] | | | | | | [phone] | | | +--------+ + + + [...] | | 2020 | [place] | | [address] | | | | | | [address] | | | | | | [place], [place] | | | | | | [address] | | | | | | [phone] | | | | | | | | +--------+ + + + + | 09/27/ | Telephone-S | Liver Transplant | Vimal Crowe MD | | | 2019 | [place] | | [address] | | | | | | [address], | | | | | | [place] [address] | | | | | | [phone] | | | | | | | | +--------+ + + + + | 10/03/ | Appointment | Cardiology | | | | 2019 | | | | | +--------+ + + + + | 10/03/ | Office | Cardiology | Cyril Samuel | | | 2019 | Visit | | MD Patricia [address] | | | | | | [address] | | | | | | [place], [place] | | | | | | [address] | | | | | | [phone] | | | | | | | | +--------+ + + + + documented as of this encounter Visit Diagnoses Not on filedocumented in this encounter"
--- OUTSIDE RECORDS SUMMARY | ~2020-07-29 | XMS | Encounter Summary ---
Demographics + + + | Address | [address] | | | [place] [address] | + + + | Home Phone [...] [place] | | | | | [address] | | + + + + + Care Team Providers + +------+ + | Care Spa Technician Name | Role | Phone | + +------+ + | Shaorn David MD | PCP | | + +------+ + Reason for Visit + + + | Reason | Comments | + + + | Liver Transplant | post orders | | Follow Up | | + + + Encounter Details +--------+ + + + + | Date | Type | Department | Care Team | Description | +--------+ + + + + | 08/17/ | Documentati | Clinical | Marsha Garcia, | Liver Transplant | | 2019 | on | Transplant Services | [address] | Follow Up (post | | | | [address] | [address] | orders) | | | | [address], | [place], [place] | | | | | [place] [address] | [address] | | | | | [phone] | [phone] | | | | | | | [...] Rd | | | | | | [place], [place] | | | | | | [address] | | | | | | [phone] | | | | | | | | +--------+ + + + + | 09/27/ | Telephone-S | Liver Transplant | Vimal Crowe MD | | | 2019 | cheduled | | [address] | | | | | | [address], | | | | | | [place] [address] | | | | | | [phone] | | | | | | | | +--------+ + + + + | 10/03/ | Appointment | Cardiology | | | | 2019 | | | | | +--------+ + + + + | 10/03/ | Office | Cardiology | Cyril Samuel | | | 2019 | Visit | | MD Patricia [address] [facility] | | | | | | [address] | | | | | | [place], [place] | | | | | | [address] | | | | | | [phone] | | | | | | | | +--------+ + + + + + +------+--------+ + + | Name | Type | Priori | Associated Diagnoses | Order Schedule | | | | ty | | | + +------+--------+ + + | COMPLETE METABOLIC | Lab | Routin | Liver transplant | 2 times per week for | | SET | | e | status (HCC) | 100 Occurrences | | (NA,K,CL,CO2,BUN,CRE | | | | starting 08/17/2019 | | AT,GLUC,CA,AST,ALT,B | | | | until 08/17/2020, 16 | | KEV TOTAL,ALK | | | | completed | | PHOS,ALB,PROT TOTAL) | | | | | + +------+--------+ + + | MAGNESIUM, PLASMA | Lab | Routin | Liver transplant | 2 times per week for | | | | e | status (HCC) | 100 Occurrences | | | | | | starting 08/17/2019 | | | | | | until 08/17/2020, 16 | | | | | | completed | + +------+--------+ + + | PHOSPHORUS, PLASMA | Lab | Routin | Liver transplant | 2 times per week for | | | | e | status (HCC) | 100 Occurrences | | | | | | starting 08/17/2019 | | | | | | until 08/17/2020, 15 | | | | | | completed | + +------+--------+ + + | BILIRUBIN DIRECT | Lab | Routin | Liver transplant | 2 times per week for | | | | e | status (HCC) | 100 Occurrences | | | | | | starting 08/17/2019 | | | | | | until 08/17/2020, 16 | | | | | | completed | + +------+--------+ + + | CBC, WITH | Lab | Routin | Liver transplant | 2 times per week for | | DIFFERENTIAL | | e | status (HCC) | 100 Occurrences | | | | | | starting 08/17/2019 | | | | | | until 08/17/2020, 16 | | | | | | completed | + +------+--------+ + + | TACROLIMUS, WHOLE | Lab | Routin | Liver transplant | 2 times per week for | | BLOOD | | e | status (HCC) | 100 Occurrences | | | | | | starting 08/17/2019 | | | | | | until 08/17/2020, 16 | | | | | | completed | + +------+--------+ + + | URIC ACID, PLASMA | Lab | Routin | Liver transplant | 2 times per week for | | | | e | status (HCC) | 100 Occurrences | | | | | | starting 08/17/2019 | | | | | | until 08/17/2020, 16 | | | | | | completed | + +------+--------+ + + | TRANSPLANT EXTERNAL | Lab | Routin | Liver transplant | Ordered: 08/17/2019 | | LAB ORDERS | | e | status (HCC) | | + +------+--------+ + + documented as of this encounter Results URIC ACID, PLASMA (11/16/2019 7:41 AM PST) + +-------+ + + + | Component | Value | Ref Range | Performed | Pathologist | | | | | At | Signature | + +-------+ + + + | URIC ACID, | 6.6 | 3.7 - 8.0 mg/dL | [facility] [...] [facility] | [address] | [place] [address] | | | SERVICES, CORE | [address] | | | + + + + + TACROLIMUS, WHOLE BLOOD (11/16/2019 7:41 AM PST) + +-------+ + + + | Component | Value | Ref Range | Performed | Pathologist | | | | | At | Signature | + +-------+ + + + | TACROLIMUS | 5.8 | 5.0 - 15.0 | [facility] | [...] | Test performed by immunoassay using Palafox Coordinate Measuring Machine Programmer [email or web address]. . | [facility] | | Samples [...] | + + + + + | [facility] | [address] | [place] [address] | | | SERVICES, SPECIAL | [address] | | | | IMM + COAG | | | | + + + + + BILIRUBIN DIRECT (11/16/2019 7:41 AM PST) + +---------+ + + + | Component | Value | Ref Range | Performed | Pathologist | | | | | At | Signature | + +---------+ + + + | BILIRUBIN | 0.1 | 0.0 - 0.3 mg/dL | [facility] [...] [facility] | [address] | [place] [address] | | | SERVICES, CORE | [address] | | | + + + + + PHOSPHORUS, PLASMA (11/16/2019 7:41 AM PST) + +-------+ + [...] | + + + + + | [facility] | [address] | [place] [address] | | | SERVICES, CORE | [address] | | | + + + + + MAGNESIUM, PLASMA (11/16/2019 7:41 AM PST) + +-------+ + + + | Component | Value | Ref Range | Performed | Pathologist | | | | | At | Signature | + +-------+ + + + | MAGNESIUM,P | 1.7 | 1.6 - 2.6 mg/dL | [facility] | | | LASMA | | | [...] | + + + + + | [facility] | [address] | [place] [address] | | | SERVICES, CORE | [address] | | | + + + + + COMPLETE METABOLIC SET (NA,K,CL,CO2,BUN,CREAT,GLUC,CA,AST,ALT,BILI TOTAL,ALK PHOS,ALB,PROT TOTAL) (11/16/2019 7:41 AM PST) + + + + + + | Component | Value | Ref Range | Performed | Pathologist | | | | | At | Signature | + + + + + + | GLUCOSE, | 135 (H) | 70 - 99 [...] | | | LABORATORY | | | [facility] | | | SERVICES, | | | [...] + + + + | SODIUM, | 143 | 136 - 145 | [facility] | [...] + + | BILIRUBIN | 0.3 | 0.3 - 1.2 mg/dL | [facility] [...] + + + | ALK PHOS | 52 (L) | 53 - 128 U/L | [...] + | ALT (SGPT) | 18 | <=60 U/L | [facility] | | | | | | LABORATORY | | | | | | SERVICES, | | | | | | CORE | | + + + + + + | ANION GAP | 3 (L) | 4 - 11 mmol/L | [facility] [...] + + + + | BUN/CREATIN | 24 | 8 - 25 | [facility] | | | INE RATIO | | | LABORATORY | | | | | | SERVICES, | | | | | | CORE | | + + + + + + | GLOBULIN | 2.6 | 2.3 - 3.5 gm/dL | [facility] | | | LVL | | | LABORATORY | | | | | | SERVICES, | | | | | | CORE | | + + + + + + | ALBUMIN/MARITZA | 1.4 | 0.9 - 2.0 | [facility] | [...] | + + + + + | [facility] | [address] [facility] [address] | [place] [address] | | | SERVICES, ARTIS | [address] | | | + + + + + URIC ACID, PLASMA (11/09/2019 7:53 AM PST) + +-------+ + + + | Component | Value | Ref Range | Performed | Pathologist | | | | | At | Signature | + +-------+ + + + | URIC ACID, | 6.8 | 3.7 - 8.0 mg/dL | [facility] | | | PLASMA | | | LABORATORY | | | (LAB) | | | SERVICES, | | | | | | [facility] | [facility] + | | | | | | [facility]ALING | | + +-------+ + + + + + | Specimen | + + | Blood - Blood | | (substance) | + + + + + + + | Performing | Address | City/State/Zipcode | Phone Number | | Organization | | | | + + + + + | [facility] | [address] | [place] [address] | | | [facility] | | | | | HEALTH + HEALING | | | | + + + + + TACROLIMUS, WHOLE BLOOD (11/09/2019 7:53 AM PST) + +-------+ + + + | Component | Value | Ref Range | Performed | Pathologist | | | | | At | Signature | + +-------+ + + + | TACROLIMUS | 6.2 | 5.0 - 15.0 | [facility] | | | ([address]) | | ng/mL | LABORATORY | | | | | | [facility], | | | | | | SPECIAL IMM | | | | | | + COAG | | + +-------+ + + + + + | Specimen | + + | Blood - Blood | | (substance) | + + + + + | Narrative | Performed At | + + + | Test performed by immunoassay using Glassbeam Coordinate Measuring Machine Programmer [email or web address]. . | [facility] | | Samples [...] [facility] | [address] | [place] [address] | | | SERVICES, SPECIAL | [address] | | | | IMM + COAG | | | | + + + + + BILIRUBIN DIRECT (11/09/2019 7:53 AM PST) + +---------+ + + + | Component | Value | Ref Range | Performed | Pathologist | | | | | At | Signature | + +---------+ + + + | BILIRUBIN | 0.1 | 0.0 - 0.3 mg/dL | [facility] [...] [facility] | [address] | [place] [address] | | | SERVICES, [facility] | | | | | HE[facility] + HEALING | | | | + + + + + PHOSPHORUS, PLASMA (11/09/2019 7:53 AM PST) + +---------+ + + + [...] LABORATORY | [address] | [place] [address] | | | [facility] | | | | | HEALTH + HEALING | | | | + + + + + MAGNESIUM, PLASMA (11/09/2019 7:53 AM PST) + +---------+ + + + | Component | Value | Ref Range | Performed | Pathologist | | | | | At | Signature | + +---------+ + + + | MAGNESIUM,P | 1.5 (L) | 1.6 - 2.6 mg/dL | [facility] | | | LASMA | | | LABORATORY | | | | | | [facility], | | | | | | [facility] | | | | | | [...] | + + + + + | [facility] | [address] | [place] [address] | | | [facility] | | | | | HEALTH + HEALING | | | | + + + + + COMPLETE METABOLIC SET (NA,K,CL,CO2,BUN,CREAT,GLUC,CA,AST,ALT,BILI TOTAL,ALK PHOS,ALB,PROT TOTAL) (11/09/2019 7:53 AM PST) + + + + + + | Component | Value | Ref Range | Performed | Pathologist | | | | | At | Signature | + + + + + + | GLUCOSE, | 116 (H) | 70 - 99 mg/dL | [facility] | | | PLASMA | | | LABORATORY | | | (LAB) | | | SERVICES, | | | | | | [facility] | [facility] | | [facility] + | | | | | | HEALING | | + + + + + + | BUN, PLASMA | 28 (H) | 6 - 20 mg/dL | [...] | | | LABORATORY | | | [facility] | | | SERVICES, | | | [...] + + + + | POTASSIUM, | 5.5 (H) | 3.4 - 5.0 | [facility] [...] + + | BILIRUBIN | 0.3 | 0.3 - 1.2 mg/dL | [facility] [...] + | ALT (SGPT) | 20 | <=60 U/L | [facility] | | [...] + + + + | BUN/CREATIN | 18 | 8 - 25 | [facility] | | | INE RATIO | | | LABORATORY | | | | | | SERVICES, | | | | | | [facility] | | | | | [facility] + | | | | | | HEALING | | + + + + + + | GLOBULIN | 2.7 | 2.3 - 3.5 gm/dL | [facility] | | | LVL | | | LABORATORY | | | | | | SERVICES, | | | | | | [facility] | | | | | [facility] + | | | | | | HEALING | | + + + + + + | ALBUMIN/MARITZA | 1.2 | 0.9 - 2.0 | [facility] | [...] MDRD equation recommended by the National | [facility] | | Kidney Disease Education Program. Estimated [...] + | [facility] | [address] | [place] [address] | | | [facility] | | | | | HEALTH + HEALING | | | | + + + + + URIC ACID, PLASMA (11/02/2019 10:10 AM PST) + +---------+ + + + | Component | Value | Ref Range | Performed | Pathologist | | | | | At | Signature | + +---------+ + + + | URIC ACID, | 8.1 (H) | 3.7 - 8.0 mg/dL | [...] | + + + + + | [facility] | [address] | [place] [address] | | | SERVICES, CORE | [address] | | | + + + + + TACROLIMUS, WHOLE BLOOD (11/02/2019 10:10 AM PST) + +---------+ + + + | Component | Value | Ref Range | Performed | Pathologist | | | | | At | Signature | + +---------+ + + + | TACROLIMUS | 4.4 (L) | 5.0 - 15.0 | [facility] | | | ([address]) | | ng/mL | LABORATORY | | | | | | SERVICES, | | | | | | SPECIAL IMM | | | | | | + COAG | | + +---------+ + + + + + | Specimen | + + | Blood - Blood | | (substance) | + + + + + | Narrative | Performed At | + + + | Test performed by immunoassay using Glassbeam Coordinate Measuring Machine Programmer [email or web address]. . | [facility] | | Samples [...] | + + + + + | [facility] | [address] [facility] [address] | [place] [address] | | | SPECIAL CLAUDIA | [address] | | | | IMM + COAG | | | | + + + + + BILIRUBIN DIRECT (11/02/2019 10:10 AM PST) + +---------+ + + + | Component | Value | Ref Range | Performed | Pathologist | | | | | At | Signature | + +---------+ + + + | BILIRUBIN | 0.1 | 0.0 - 0.3 mg/dL | [facility] [...] [facility] | [address] | [place] [address] | | | SERVICES, CORE | [address] | | | + + + + + PHOSPHORUS, PLASMA (11/02/2019 10:10 AM PST) + +-------+ + + + [...] | + + + + + | [facility] | [address] | [place] [address] | | | CLAUDIA, ARTIS | [address] | | | + + + + + MAGNESIUM, PLASMA (11/02/2019 10:10 AM PST) + +-------+ + + + [...] [facility] | [address] | [place] [address] | | | SERVICES, CORE | [address] | | | + + + + + COMPLETE METABOLIC SET (NA,K,CL,CO2,BUN,CREAT,GLUC,CA,AST,ALT,BILI TOTAL,ALK PHOS,ALB,PROT TOTAL) (11/02/2019 10:10 AM PST) + + + + + + | Component | Value | Ref Range | Performed | Pathologist | | | | | At | Signature | + + + + + + | GLUCOSE, | 127 (H) | 70 - 99 mg/dL | [facility] | | | PLASMA | | | LABORATORY | | | (LAB) | | | SERVICES, | | | | | | CORE | | + + + + + + | BUN, PLASMA | 23 (H) | 6 - 20 mg/dL | [facility] | | | (LAB) | | | LABORATORY | | | | | | SERVICES, | | | | | | CORE | | + + + + + + | CREATININE | 1.46 (H) | 0.70 - 1.30 | [facility] | | | PLASMA | | mg/dL | LABORATORY | | | (LAB) | | | SERVICES, | | | | | | CORE | | + + + + + + | EGFR | >60 | >60 mL/min | [facility] | | | - | | | LABORATORY | | | [facility] | | | SERVICES, | | | | | | CORE | | + + + + + + | EGFR NON | 50 (L) | >60 mL/min | [facility] | [...] + + | BILIRUBIN | 0.3 | 0.3 - 1.2 mg/dL | [facility] [...] + + + | ANION GAP | 3 (L) | 4 - 11 mmol/L | [facility] [...] + + + + | BUN/CREATIN | 16 | 8 - 25 | [facility] | | | INE RATIO | | | LABORATORY | | | | | | SERVICES, | | | | | | CORE | | + + + + + + | GLOBULIN | 2.7 | 2.3 - 3.5 gm/dL | [facility] | | | LVL | | | LABORATORY | | | | | | SERVICES, | | | | | | CORE | | + + + + + + | ALBUMIN/MARITZA | 1.3 | 0.9 - 2.0 | [facility] | [...] MDRD equation recommended by the National | [facility] | | Kidney Disease Education Program. Estimated [...] | + + + + + | [facility] | [address] [facility] | [place] [address] | | | CLAUDIA, ATRIS | [address] | | | + + + + + URIC ACID, PLASMA (10/29/2019 8:10 AM PST) + +---------+ + + + | Component | Value | Ref Range | Performed | Pathologist | | | | | At | Signature | + +---------+ + + + | URIC ACID, | 9.1 (H) | 3.7 - 8.0 mg/dL | [...] [facility] | [address] | [place] [address] | | | SERVICES, CORE | [address] | | | + + + + + TACROLIMUS, WHOLE BLOOD (10/29/2019 8:10 AM PST) + +-------+ + + + | Component | Value | Ref Range | Performed | Pathologist | | | | | At | Signature | + +-------+ + + + | TACROLIMUS | 5.5 | 5.0 - 15.0 | [facility] | [...] | Test performed by immunoassay using Palafox Coordinate Measuring Machine Programmer [email or web address]. . | [facility] | | Samples [...] | + + + + + | [facility] | [address] | [place] [address] | | | SERVICES, SPECIAL | [address] | | | | IMM + COAG | | | | + + + + + BILIRUBIN DIRECT (10/29/2019 8:10 AM PST) + +---------+ + + + | Component | Value | Ref Range | Performed | Pathologist | | | | | At | Signature | + +---------+ + + + | BILIRUBIN | 0.1 | 0.0 - 0.3 mg/dL | [facility] [...] [facility] | [address] | [place] [address] | | | CLAUDIA, ARTIS | [address] | | | + + + + + PHOSPHORUS, PLASMA (10/29/2019 8:10 AM PST) + +-------+ + + + [...] [facility] | [address] | [place] [address] | | | CLAUDIA, ARTIS | [address] | | | + + + + + MAGNESIUM, PLASMA (10/29/2019 8:10 AM PST) + +-------+ + + + | Component | Value | Ref Range | Performed | Pathologist | | | | | At | Signature | + +-------+ + + + | MAGNESIUM,P | 1.6 | 1.6 - 2.6 mg/dL | [facility] [...] | + + + + + | [facility] | [address] [facility] [facility] | [place] [address] | | | SERVICES, CORE | [address] | | | + + + + + COMPLETE METABOLIC SET (NA,K,CL,CO2,BUN,CREAT,GLUC,CA,AST,ALT,BILI TOTAL,ALK PHOS,ALB,PROT TOTAL) (10/29/2019 8:10 AM PST) + + + + + + | Component | Value | Ref Range | Performed | Pathologist | | | | | At | Signature | + + + + + + | GLUCOSE, | 120 (H) | 70 - 99 mg/dL | [...] + + + + | CREATININE | 2.23 (H) | 0.70 - 1.30 | [facility] | | | PLASMA | | mg/dL | LABORATORY | | | (LAB) | | | SERVICES, | | | | | | CORE | | + + + + + + | EGFR | 37 (L) | >60 mL/min | [facility] | | | - | | | LABORATORY | | | [facility] | | | SERVICES, | | | | | | CORE | | + + + + + + | EGFR NON | 31 (L) | >60 mL/min | [...] + + + + | BILIRUBIN | 0.2 (L) | 0.3 - 1.2 mg/dL | [facility] [...] + + + | ALK PHOS | 55 | 53 - 128 U/L | [facility] [...] + + + | ANION GAP | 2 (L) | 4 - 11 mmol/L | [facility] | | | | | | LABORATORY | | | | | | SERVICES, | | | | | | CORE | | + + + + + + | ANION | 3 (L) | 4 - 11 mmol/L | [facility] [...] + + + + | BUN/CREATIN | 19 | 8 - 25 | [facility] | | | INE RATIO | | | LABORATORY | | | | | | SERVICES, | | | | | | CORE | | + + + + + + | GLOBULIN | 2.7 | 2.3 - 3.5 gm/dL | [facility] | | | LVL | | | LABORATORY | | | | | | SERVICES, | | | | | | CORE | | + + + + + + | ALBUMIN/MARITZA | 1.3 | 0.9 - 2.0 | [facility] | [...] MDRD equation recommended by the National | [facility] | | Kidney Disease Education Program. Estimated [...] | + + + + + | [facility] | [address] | [place] [address] | | | SERVICES, CORE | [address] | | | + + + + + URIC ACID, PLASMA (10/12/2019 8:50 AM PST) + +---------+ + + + | Component | Value | Ref Range | Performed | Pathologist | | | | | At | Signature | + +---------+ + + + | URIC ACID, | 9.6 (H) | 3.7 - 8.0 mg/dL | [...] [facility] | [address] | [place] [address] | | | SERVICES, CORE | [address] | | | + + + + + TACROLIMUS, WHOLE BLOOD (10/12/2019 8:50 AM PST) + +-------+ + + + | Component | Value | Ref Range | Performed | Pathologist | | | | | At | Signature | + +-------+ + + + | TACROLIMUS | 5.0 | 5.0 - 15.0 | [facility] | [...] | Test performed by immunoassay using Palafox Coordinate Measuring Machine Programmer [email or web address]. . | [facility] | | Samples [...] + | [facility] | [address] | [place] [address] | | | SERVICES, SPECIAL | [address] | | | | IMM + COAG | | | | + + + + + BILIRUBIN DIRECT (10/12/2019 8:50 AM PST) + +---------+ + + + | Component | Value | Ref Range | Performed | Pathologist | | | | | At | Signature | + +---------+ + + + | BILIRUBIN | 0.2 | 0.0 - 0.3 mg/dL | [facility] [...] | + + + + + | [facility] | [address] | [place] [address] | | | SERVICES, CORE | [address] | | | + + + + + PHOSPHORUS, PLASMA (10/12/2019 8:50 AM PST) + +---------+ + + + | Component | Value | Ref Range | Performed | Pathologist | | | | | At | Signature | + +---------+ + + + | PHOSPHORUS, | 5.1 (H) | 2.4 - 4.7 mg/dL | [...] [facility] | [address] | [place] [address] | | | SERVICES, CORE | [address] | | | + + + + + MAGNESIUM, PLASMA (10/12/2019 8:50 AM PST) + +-------+ + + + [...] [facility] | [address] | [place] [address] | | | SERVICES, [facility] | [address] | | | + + + + + COMPLETE METABOLIC SET (NA,K,CL,CO2,BUN,CREAT,GLUC,CA,AST,ALT,BILI TOTAL,ALK PHOS,ALB,PROT TOTAL) (10/12/2019 8:50 AM PST) + + + + + + | Component | Value | Ref Range | Performed | Pathologist | | | | | At | Signature | + + + + + + | GLUCOSE, | 178 (H) | 70 - 99 [...] + + + | CREATININE | 2.24 (H) | 0.70 - 1.30 | [facility] | | | PLASMA | | mg/dL | LABORATORY | | | (LAB) | | | SERVICES, | | | | | | CORE | | + + + + + + | EGFR | 37 (L) | >60 mL/min | [facility] | | | - | | | LABORATORY | | | [place] | | | SERVICES, | | | | | | CORE | | + + + + + + | EGFR NON | 31 (L) | >60 mL/min | [...] + + + + | POTASSIUM, | 5.7 (H) | 3.4 - 5.0 | [facility] [...] + + + + | CALCIUM, | 10.3 (H) | 8.6 - 10.2 | [facility] | | | PLASMA | | mg/dL | LABORATORY | | | (LAB) | | | SERVICES, | | | | | | CORE | | + + + + + + | CALCIUM(ALB | 10.1 | 8.6 - 10.2 | [...] + + | ALBUMIN, | 4.2 | 3.5 - 4.7 g/dL | [facility] | | | PLASMA | | | LABORATORY | | | (LAB) | | | SERVICES, | | | | | | CORE | | + + + + + + | ALK PHOS | 67 | 53 - 128 U/L | [facility] | | | | | | LABORATORY | | | | | | SERVICES, | | | | | | CORE | | + + + + + + | AST(SGOT) | 12 | <=41 U/L | [facility] | | | | | | LABORATORY | | | | | | SERVICES, | | | | | | CORE | | + + + + + + | ALT (SGPT) | 18 | <=60 U/L | [facility] | | [...] + + + + | ANION | 3 (L) | 4 - 11 mmol/L | [facility] [...] + + + + | BUN/CREATIN | 24 | 8 - 25 | [facility] | | | INE RATIO | | | LABORATORY | | | | | | SERVICES, | | | | | | CORE | | + + + + + + | GLOBULIN | 3.0 | 2.3 - 3.5 gm/dL | [facility] | | | LVL | | | LABORATORY | | | | | | SERVICES, | | | | | | CORE | | + + + + + + | ALBUMIN/MARITZA | 1.4 | 0.9 - 2.0 | [facility] | [...] MDRD equation recommended by the National | [facility] | | Kidney Disease Education Program. Estimated [...] LABORATORY | [address] | [place] [address] | | | SERVICES, CORE | [address] [...] | + + + + + | [facility] | [address] | [place] [address] | | | SERVICES, ARTIS | [address] [...] | Test performed by immunoassay using Palafox Coordinate Measuring Machine Programmer [email or web address]. . | [facility] | | Samples [...] | + + + + + | [facility] | [address] | [place] [address] | | | SERVICES, SPECIAL | [address] [...] [facility] | [address] | [place] [address] | | | SERVICES, CORE | PARK [...] | + + + + + | [facility] | [address] | [place] [address] | | | SERVICES, CORE | [address] | | | + + + + + MAGNESIUM, PLASMA (10/09/2019 8:12 AM PST) + +-------+ + + + | Component | Value | Ref Range | Performed | Pathologist | | | | | At | Signature | + +-------+ + + + | MAGNESIUM,P | 1.7 | 1.6 - 2.6 mg/dL | [facility] | | | L[facility]MA | | | [...] [facility] | [address] | [place] [address] | | | SERVICES, CORE | PARK [...] | | | LABORATORY | | | [facility] | | | SERVICES, | | | [...] | + + + + + | [facility] | [address] | [place] [address] | | | ARTIS TAYLOR | [address] | | | + + + + + URIC ACID, PLASMA (10/01/2019 8:16 AM PST) + +---------+ + + + | Component | Value | Ref Range | Performed | Pathologist | | | | | At | Signature | + +---------+ + + + | URIC ACID, | 8.4 (H) | 3.7 - 8.0 mg/dL | [...] [facility] | [address] | [place] [address] | | | SERVICES, CORE | [address] | | | + + + + + TACROLIMUS, WHOLE BLOOD (10/01/2019 8:16 AM PST) + +-------+ + + + | Component | Value | Ref Range | Performed | Pathologist | | | | | At | Signature | + +-------+ + + + | TACROLIMUS | 5.9 | 5.0 - 15.0 | [facility] | [...] | Test performed by immunoassay using Palaf[employer] Coordinate Measuring Machine Programmer [email or web address]. . | [facility] | | Samples [...] [facility] | [address] | [place] [address] | | | SERVICES, SPECIAL | [address] | | | | IMM + COAG | | | | + + + + + BILIRUBIN DIRECT (10/01/2019 8:16 AM PST) + +---------+ + + + [...] [facility] | [address] | [place] [address] | | | SERVICES, CORE | [address] | | | + + + + + PHOSPHORUS, PLASMA (10/01/2019 8:16 AM PST) + +---------+ + + + | Component | Value | Ref Range | Performed | Pathologist | | | | | At | Signature | + +---------+ + + + | PHOSPHORUS, | 4.8 (H) | 2.4 - 4.7 mg/dL | [...] | + + + + + | [facility] | [address] | [place] [address] | | | SERVICES, CORE | [address] | | | + + + + + MAGNESIUM, PLASMA (10/01/2019 8:16 AM PST) + +-------+ + + + | Component | Value | Ref Range | Performed | Pathologist | | | | | At | Signature | + +-------+ + + + | MAGNESIUM,P | 1.7 | 1.6 - 2.6 mg/dL | [facility] | | | LASMA | | | [...] | + + + + + | [facility] | [address] [facility] [address] | [place] [address] | | | SERVICES, ARTIS | [address] | | | + + + + + COMPLETE METABOLIC SET (NA,K,CL,CO2,BUN,CREAT,GLUC,CA,AST,ALT,BILI TOTAL,ALK PHOS,ALB,PROT TOTAL) (10/01/2019 8:16 AM PST) + + + + + [...] + + + + | CREATININE | 1.80 (H) | 0.70 - 1.30 | [facility] | | | PLASMA | | mg/dL | LABORATORY | | | (LAB) | | | SERVICES, | | | | | | CORE | | + + + + + + | EGFR | 48 (L) | >60 mL/min | [facility] | | | - | | | LABORATORY | | | [facility] | | | SERVICES, | | | | | | CORE | | + + + + + + | EGFR NON | 40 (L) | >60 mL/min | [...] + + + | TOTAL CO2, | 33 (H) | 21 - 32 mmol/L | [facility] [...] + | ALK PHOS | 73 | 53 - 128 U/L | [facility] [...] + + + | ALT (SGPT) | 28 | <=60 U/L | [facility] | | [...] + + + + | ANION | 3 (L) | 4 - 11 mmol/L | [facility] [...] | + + + + + | [facility] | [address] | [place] [address] | | | SERVICES, ARTIS | [address] | | | + + + + + URIC ACID, PLASMA (09/28/2019 8:54 AM PST) + +---------+ + + + | Component | Value | Ref Range | Performed | Pathologist | | | | | At | Signature | + +---------+ + + + | URIC ACID, | 8.3 (H) | 3.7 - 8.0 mg/dL | [...] | + + + + + | [facility] | [address] | [place] [address] | | | SERVICES, CORE | [address] | | | + + + + + TACROLIMUS, WHOLE BLOOD (09/28/2019 8:54 AM PST) + +-------+ + + + | Component | Value | Ref Range | Performed | Pathologist | | | | | At | Signature | + +-------+ + + + | TACROLIMUS | 5.0 | 5.0 - 15.0 | [facility] | [...] | Test performed by immunoassay using Palafox Coordinate Measuring Machine Programmer [email or web address]. . | [facility] | | Samples [...] [facility] | [address] | [place] [address] | | | SERVICES, SPECIAL | [address] | | | | IMM + COAG | | | | + + + + + BILIRUBIN DIRECT (09/28/2019 8:54 AM PST) + +---------+ + + + [...] [facility] | [address] | [place] [address] | | | CLAUDIA, ARTIS | [address] | | | + + + + + PHOSPHORUS, PLASMA (09/28/2019 8:54 AM PST) + +---------+ + + + | Component | Value | Ref Range | Performed | Pathologist | | | | | At | Signature | + +---------+ + + + | PHOSPHORUS, | 5.1 (H) | 2.4 - 4.7 mg/dL | [...] | + + + + + | [facility] | [address] | [place] [address] | | | SERVICES, CORE | [address] | | | + + + + + MAGNESIUM, PLASMA (09/28/2019 8:54 AM PST) + +-------+ + + + | Component | Value | Ref Range | Performed | Pathologist | | | | | At | Signature | + +-------+ + + + | MAGNESIUM,P | 1.6 | 1.6 - 2.6 mg/dL | [facility] [...] | + + + + + | [facility] | [address] | [place] [address] | | | SERVICES, CORE | [address] | | | + + + + + COMPLETE METABOLIC SET (NA,K,CL,CO2,BUN,CREAT,GLUC,CA,AST,ALT,BILI TOTAL,ALK PHOS,ALB,PROT TOTAL) (09/28/2019 8:54 AM PST) + + + + + + | Component | Value | Ref Range | Performed | Pathologist | | | | | At | Signature | + + + + + + | GLUCOSE, | 151 (H) | 70 - 99 mg/dL | [facility] | | | PLASMA | | | LABORATORY | | | (LAB) | | | SERVICES, | | | | | | CORE | | + + + + + + | BUN, PLASMA | 30 (H) | 6 - 20 mg/dL | [facility] | | | (LAB) | | | LABORATORY | | | | | | SERVICES, | | | | | | CORE | | + + + + + + | CREATININE | 1.92 (H) | 0.70 - 1.30 | [facility] | | | PLASMA | | mg/dL | LABORATORY | | | (LAB) | | | SERVICES, | | | | | | CORE | | + + + + + + | EGFR | 44 (L) | >60 mL/min | [facility] | | | - | | | LABORATORY | | | [facility] | | | SERVICES, | | | | | | CORE | | + + + + + + | EGFR NON | 37 (L) | >60 mL/min | [facility] | [...] + + + + | POTASSIUM, | 5.0 | 3.4 - 5.0 | [facility] | [...] + | TOTAL CO2, | 32 | 21 - 32 mmol/L | [facility] [...] + + | ALBUMIN, | 4.0 | 3.5 - 4.7 g/dL | [facility] | | | PLASMA | | | LABORATORY | | | (LAB) | | | SERVICES, | | | | | | CORE | | + + + + + + | ALK PHOS | 74 | 53 - 128 U/L | [facility] | | | | | | LABORATORY | | | | | | SERVICES, | | | | | | CORE | | + + + + + + | AST(SGOT) | 27 | <=41 U/L | [facility] | | | | | | LABORATORY | | | | | | SERVICES, | | | | | | CORE | | + + + + + + | ALT (SGPT) | 31 | <=60 U/L | [facility] | | [...] | + + + + + | [facility] | [address] | [place] [address] | | | SERVICES, ARTIS | [address] | | | + + + + + URIC ACID, PLASMA (09/24/2019 8:12 AM PST) + +-------+ + + + | Component | Value | Ref Range | Performed | Pathologist | | | | | At | Signature | + +-------+ + + + | URIC ACID, | 8.0 | 3.7 - 8.0 mg/dL | [facility] [...] | + + + + + | [facility] | [address] | [place] [address] | | | SERVICES, CORE | [address] | | | + + + + + TACROLIMUS, WHOLE BLOOD (09/24/2019 8:12 AM PST) + +-------+ + + + | Component | Value | Ref Range | Performed | Pathologist | | | | | At | Signature | + +-------+ + + + | TACROLIMUS | 5.9 | 5.0 - 15.0 | [facility] | [...] | Test performed by immunoassay using Palafox Coordinate Measuring Machine Programmer [email or web address]. . | [facility] | | Samples [...] [facility] | [address] | [place] [address] | | | SERVICES, SPECIAL | [address] | | | | IMM + COAG | | | | + + + + + BILIRUBIN DIRECT (09/24/2019 8:12 AM PST) + +---------+ + + [...] | + + + + + | [facility] | [address] | [place] [address] | | | SERVICES, CORE | [address] | | | + + + + + PHOSPHORUS, PLASMA (09/24/2019 8:12 AM PST) + +-------+ + + + | Component | Value | Ref Range | Performed | Pathologist | | | | | At | Signature | + +-------+ + + + | PHOSPHORUS, | 4.7 | 2.4 - 4.7 mg/dL | [facility] [...] | + + + + + | [facility] | [address] | [place] [address] | | | SERVICES, CORE | [address] | | | + + + + + MAGNESIUM, PLASMA (09/24/2019 8:12 AM PST) + +-------+ + + + | Component | Value | Ref Range | Performed | Pathologist | | | | | At | Signature | + +-------+ + + + | MAGNESIUM,P | 1.7 | 1.6 - 2.6 mg/dL | [facility] | | | LASMA | | | [...] | + + + + + | [facility] | [address] | [place] [address] | | | SERVICES, CORE | [address] | | | + + + + + COMPLETE METABOLIC SET (NA,K,CL,CO2,BUN,CREAT,GLUC,CA,AST,ALT,BILI TOTAL,ALK PHOS,ALB,PROT TOTAL) (09/24/2019 8:12 AM PST) + + + + + + | Component | Value | Ref Range | Performed | Pathologist | | | | | At | Signature | + + + + + + | GLUCOSE, | 157 (H) | 70 - 99 mg/dL | [facility] | | | PLASMA | | | LABORATORY | | | (LAB) | | | SERVICES, | | | | | | CORE | | + + + + + + | BUN, PLASMA | 26 (H) | 6 - 20 mg/dL | [facility] | | | (LAB) | | | LABORATORY | | | | | | SERVICES, | | | | | | CORE | | + + + + + + | CREATININE | 1.92 (H) | 0.70 - 1.30 | [facility] | | | PLASMA | | mg/dL | LABORATORY | | | (LAB) | | | SERVICES, | | | | | | CORE | | + + + + + + | EGFR | 44 (L) | >60 mL/min | [facility] | | | - | | | LABORATORY | | | [facility]ONG[place] | | | SERVICES, | | | | | | CORE | | + + + + + + | EGFR NON | 37 (L) | >60 mL/min | [facility] | [...] + | TOTAL CO2, | 32 | 21 - 32 mmol/L | [facility] [...] + + | BILIRUBIN | 0.6 | 0.3 - 1.2 mg/dL | [facility] [...] + + | ALBUMIN, | 4.0 | 3.5 - 4.7 g/dL | [facility] [...] MDRD equation recommended by the National | [facility] | | Kidney Disease Education Program. Estimated [...] | + + + + + | [facility] | [address] | [place] [address] | | | SERVICES, CORE | [address] [...] [facility] | [address] | [place] [address] | | | SERVICES, CORE | [address] [...] | Test performed by immunoassay using Palafox Coordinate Measuring Machine Programmer [email or web address]. . | [facility] | | Samples [...] [facility] | [address] | [place] [address] | | | SERVICES, SPECIAL | P[address] [...] | + + + + + | [facility] | [address] | [place] [address] | | | SERVICES, CORE | [address] [...] [facility] | [address] | [place] [address] | | | SERVICES, ARTIS | [address] [...] [facility] | [address] | [place] [address] | | | SERVICES, [facility] | [address] | | | + [...] | | | LABORATORY | | | MONGOLIAN | | | SERVICES, | | | [...] MDRD equation recommended by the National | [facility] | | Kidney Disease Education Program. Estimated [...] | + + + + + | [facility] | [address] | [place] [address] | | | SERVICES, CORE | [address] | | | + + + + + URIC ACID, PLASMA (09/16/2019 7:56 AM PST) + +-------+ + + + [...] [facility] | [address] | [place] [address] | | | SERVICES, ARTIS | [address] | | | + + + + + TACROLIMUS, WHOLE BLOOD (09/16/2019 7:56 AM PST) + +-------+ + + + | Component | Value | Ref Range | Performed | Pathologist | | | | | At | Signature | + +-------+ + + + | TACROLIMUS | 10.1 | 5.0 - 15.0 | [facility] | [...] | Test performed by immunoassay using Palafox Coordinate Measuring Machine Programmer [email or web address]. . | [facility] | | Samples [...] | + + + + + | [facility] | [address] | [place] [address] | | | SPECIAL CLAUDIA | [address] | | | | IMM + COAG | | | | + + + + + BILIRUBIN DIRECT (09/16/2019 7:56 AM PST) + +---------+ + + + [...] | + + + + + | [facility] | [address] | [place] [address] | | | SERVICES, CORE | [address] | | | + + + + + PHOSPHORUS, PLASMA (09/16/2019 7:56 AM PST) + +-------+ + + + [...] [facility] | [address] | [place] [address] | | | SERVICES, CORE | [address] | | | + + + + + MAGNESIUM, PLASMA (09/16/2019 7:56 AM PST) + +---------+ + + + [...] [facility] | [address] | [place] [address] | | | SERVICES, CORE | [address] | | | + + + + + COMPLETE METABOLIC SET (NA,K,CL,CO2,BUN,CREAT,GLUC,CA,AST,ALT,BILI TOTAL,ALK PHOS,ALB,PROT TOTAL) (09/16/2019 7:56 AM PST) + + + + + + | Component | Value | Ref Range | Performed | Pathologist | | | | | At | Signature | + + + + + + | GLUCOSE, | 126 (H) | 70 - 99 mg/dL | [facility] | | | PLASMA | | | LABORATORY | | | (LAB) | | | SERVICES, | | | | | | CORE | | + + + + + + | BUN, PLASMA | 22 (H) | 6 - 20 mg/dL | [facility] | | | (LAB) | | | LABORATORY | | | | | | SERVICES, | | | | | | CORE | | + + + + + + | CREATININE | 1.84 (H) | 0.70 - 1.30 | [facility] | | | PLASMA | | mg/dL | LABORATORY | | | (LAB) | | | SERVICES, | | | | | | CORE | | + + + + + + | EGFR | 47 (L) | >60 mL/min | [facility] | | | - | | | LABORATORY | | | MONG[place]IAN | | | SERVICES, | | | [...] + + + + | POTASSIUM, | 5.0 | 3.4 - 5.0 | [facility] | [...] + + + | ALK PHOS | 57 | 53 - 128 U/L | [facility] [...] MDRD equation recommended by the National | [facility] | | Kidney Disease Education Program. Estimated [...] | + + + + + | [facility] | [address] | [place] [address] | | | SERVICES, CORE | [address] | | | + + + + + URIC ACID, PLASMA (09/14/2019 8:15 AM PST) + +-------+ + + + | Component | Value | Ref Range | Performed | Pathologist | | | | | At | Signature | + +-------+ + + + | URIC ACID, | 7.9 | 3.7 - 8.0 mg/dL | [facility] | | | PLASMA | | | [...] | + + + + + | [facility] | [address] | [place] [address] | | | SERVICES, CORE | [address] | | | + + + + + TACROLIMUS, WHOLE BLOOD (09/14/2019 8:15 AM PST) + +-------+ + + + | Component | Value | Ref Range | Performed | Pathologist | | | | | At | Signature | + +-------+ + + + | TACROLIMUS | 8.3 | 5.0 - 15.0 | [facility] | [...] | Test performed by immunoassay using Palafox Coordinate Measuring Machine Programmer [email or web address]. . | [facility] | | Samples [...] | + + + + + | [facility] | [address] | [place] [address] | | | CLAUDIA SPECIAL | [address] | | | | IMM + COAG | | | | + + + + + BILIRUBIN DIRECT (09/14/2019 8:15 AM PST) + +---------+ + + + [...] | + + + + + | [facility] | [address] | [place] [address] | | | SERVICES, CORE | [address] | | | + + + + + PHOSPHORUS, PLASMA (09/14/2019 8:15 AM PST) + +-------+ + + + [...] [facility] | [address] | [place] [address] | | | SERVICES, CORE | [address] | | | + + + + + MAGNESIUM, PLASMA (09/14/2019 8:15 AM PST) + +---------+ + + + [...] [facility] | [address] | [place] [address] | | | SERVICES, CORE | [address] | | | + + + + + COMPLETE METABOLIC SET (NA,K,CL,CO2,BUN,CREAT,GLUC,CA,AST,ALT,BILI TOTAL,ALK PHOS,ALB,PROT TOTAL) (09/14/2019 8:15 AM PST) + + + + + + | Component | Value | Ref Range | Performed | Pathologist | | | | | At | Signature | + + + + + + | GLUCOSE, | 123 (H) | 70 - 99 mg/dL | [facility] | | | PLASMA | | | LABORATORY | | | (LAB) | | | SERVICES, | | | | | | CORE | | + + + + + + | BUN, PLASMA | 27 (H) | 6 - 20 mg/dL | [facility] | | | (LAB) | | | LABORATORY | | | | | | SERVICES, | | | | | | CORE | | + + + + + + | CREATININE | 1.82 (H) | 0.70 - 1.30 | [facility] | | | PLASMA | | mg/dL | LABORATORY | | | (LAB) | | | SERVICES, | | | | | | CORE | | + + + + + + | EGFR | 47 (L) | >60 mL/min | [facility] | | | - | | | LABORATORY | | | [facility]ONG[place] | | | SERVICES, | | | [...] + + | BILIRUBIN | 0.6 | 0.3 - 1.2 mg/dL | [facility] [...] + + + | ALK PHOS | 55 | 53 - 128 U/L | [facility] [...] MDRD equation recommended by the National | [facility] | | Kidney Disease Education Program. Estimated [...] [facility] | [address] | [place] [address] | | | SERVICES, CORE | [address] | | | + + + + + URIC ACID, PLASMA (09/10/2019 8:01 AM PST) + +-------+ + + + | Component | Value | Ref Range | Performed | Pathologist | | | | | At | Signature | + +-------+ + + + | URIC ACID, | 7.6 | 3.7 - 8.0 mg/dL | [facility] [...] | + + + + + | [facility] | [address] | [place] [address] | | | CLAUDIA, ARTIS | [address] | | | + + + + + TACROLIMUS, WHOLE BLOOD (09/10/2019 8:01 AM PST) + +-------+ + + + | Component | Value | Ref Range | Performed | Pathologist | | | | | At | Signature | + +-------+ + + + | TACROLIMUS | 9.9 | 5.0 - 15.0 | [facility] | [...] + | Test performed by immunoassay using Glassbeam Coordinate Measuring Machine Programmer [email or web address]. . | [facility] | | Samples [...] | + + + + + | [facility] | [address] | [place] [address] | | | SPECIAL CLAUDIA | [address] | | | | IMM + COAG | | | | + + + + + BILIRUBIN DIRECT (09/10/2019 8:01 AM PST) + +---------+ + + + [...] [facility] | [address] | [place] [address] | | | SERVICES, CORE | [address] | | | + + + + + PHOSPHORUS, PLASMA (09/10/2019 8:01 AM PST) + +-------+ + + + [...] [facility] | [address] | [place] [address] | | | SERVICES, CORE | [address] | | | + + + + + MAGNESIUM, PLASMA (09/10/2019 8:01 AM PST) + +---------+ + + + [...] [facility] | [address] | [place] [address] | | | SERVICES, CORE | [address] | | | + + + + + COMPLETE METABOLIC SET (NA,K,CL,CO2,BUN,CREAT,GLUC,CA,AST,ALT,BILI TOTAL,ALK PHOS,ALB,PROT TOTAL) (09/10/2019 8:01 AM PST) + + + + + + | Component | Value | Ref Range | Performed | Pathologist | | | | | At | Signature | + + + + + + | GLUCOSE, | 86 | 70 - 99 mg/dL [...] + + + + | CREATININE | 1.80 (H) | 0.70 - 1.30 | [facility] | | | PLASMA | | mg/dL | LABORATORY | | | (LAB) | | | SERVICES, | | | | | | CORE | | + + + + + + | EGFR | 48 (L) | >60 mL/min | [facility] | | | - | | | LABORATORY | | | [facility] | | | SERVICES, | | | | | | CORE | | + + + + + + | EGFR NON | 40 (L) | >60 mL/min | [...] + + + | ALT (SGPT) | 19 | <=60 U/L | [facility] | | [...] MDRD equation recommended by the National | [facility] | | Kidney Disease Education Program. Estimated [...] [facility] | [address] | [place] [address] | | | SERVICES, CORE | PARK [...] | + + + + + | [facility] | [address] | [place] [address] | | | SERVICES, CORE | [address] [...] | Test performed by immunoassay using Palafox Coordinate Measuring Machine Programmer [email or web address]. . | [facility] | | Samples [...] | + + + + + | [facility] | [address] [facility] | [place] [address] | | | SERVICES, SPECIAL | MOIS[address] [...] LABORATORY | [address] | [place] [address] | | | SERVICES, CORE | PARK [...] | + + + + + | [facility] | [address] | [place] [address] | | | SERVICES, CORE | [address] [...] | | | LABORATORY | | | MONGOLIAN | | | SERVICES, | | | [...] | + + + + + | [facility] | [address] [facility] [address] | [place] [address] | | | ARTIS TAYLOR | [address] [...] [facility] | [address] | [place] [address] | | | SERVICES, CORE | MOIS[address] [...] + | Test performed by immunoassay using Glassbeam Coordinate Measuring Machine Programmer [email or web address]. . | [facility] | | Samples [...] + + | [facility] | [address] [facility] | [place] [address] | | | SERVICES, SPECIAL | PARK [...] [facility] | [address] | [place] [address] | | | SERVICES, CORE | P[address] [...] | + + + + + | [facility] | [address] | [place] [address] | | | SERVICES, CORE | [address] | | | + + + + + MAGNESIUM, PLASMA (09/03/2019 8:09 AM PST) + +---------+ + + + | Component | Value | Ref Range | Performed | Pathologist | | | | | At | Signature | + +---------+ + + + | MAGNESIUM,P | 1.4 (L) | 1.6 - 2.6 mg/dL | [facility] | | | [facility] | | | LABORATORY | | | [...] | + + + + + | [facility] | [address] [facility] [address] | [place] [address] | | | CLAUDIA, ARTIS | [address] | | | [...] | | | LABORATORY | | | MONGOLIAN | | | SERVICES, | | | [...] | + + + + + | [facility] | [address] | [place] [address] | | | ARTIS TAYLOR | [address] | | | + + + + + URIC ACID, PLASMA (08/31/2019 7:27 AM PST) + +-------+ + + + | Component | Value | Ref Range | Performed | Pathologist | | | | | At | Signature | + +-------+ + + + | URIC ACID, | 5.2 | 3.7 - 8.0 mg/dL | [facility] [...] | + + + + + | [facility] | [address] | [place] [address] | | | SERVICES, CORE | [address] | | | + + + + + TACROLIMUS, WHOLE BLOOD (08/31/2019 7:27 AM PST) + +---------+ + + + | Component | Value | Ref Range | Performed | Pathologist | | | | | At | Signature | + +---------+ + + + | TACROLIMUS | 3.9 (L) | 5.0 - 15.0 | [facility] | | | ([address] 506) | | ng/mL | LABORATORY | | | | | | SERVICES, | | | | | | SPECIAL IMM | | | | | | + COAG | | + +---------+ + + + + + | Specimen | + + | Blood - Blood | | (substance) | + + + + + | Narrative | Performed At | + + + | Test performed by immunoassay using Palafox Coordinate Measuring Machine Programmer [email or web address]. . | [facility] | | Samples [...] [facility] | [address] | [place] [address] | | | SERVICES, SPECIAL | [address] | | | | IMM + COAG | | | | + + + + + BILIRUBIN DIRECT (08/31/2019 7:27 AM PST) + +---------+ + + + | Component | Value | Ref Range | Performed | Pathologist | | | | | At | Signature | + +---------+ + + + | BILIRUBIN | 0.6 (H) | 0.0 - 0.3 mg/dL | [...] + | [facility] | [address] | [place] [address] | | | CLAUDIA, ARTIS | [address] | | | + + + + + PHOSPHORUS, PLASMA (08/31/2019 7:27 AM PST) + +-------+ + + + [...] | + + + + + | [facility] | [address] | [place] [address] | | | SERVICES, CORE | [address] | | | + + + + + MAGNESIUM, PLASMA (08/31/2019 7:27 AM PST) + +-------+ + + + | Component | Value | Ref Range | Performed | Pathologist | | | | | At | Signature | + +-------+ + + + | MAGNESIUM,P | 1.6 | 1.6 - 2.6 mg/dL | [facility] | | | LASMA | | | [...] | + + + + + | [facility] | [address] [facility] [facility] | [place] [address] | | | SERVICES, CORE | [address] | | | + + + + + COMPLETE METABOLIC SET (NA,K,CL,CO2,BUN,CREAT,GLUC,CA,AST,ALT,BILI TOTAL,ALK PHOS,ALB,PROT TOTAL) (08/31/2019 7:27 AM PST) + + + + + [...] + + + + | CREATININE | 2.01 (H) | 0.70 - 1.30 | [facility] | | | PLASMA | | mg/dL | LABORATORY | | | (LAB) | | | SERVICES, | | | | | | CORE | | + + + + + + | EGFR | 42 (L) | >60 mL/min | [facility] | | | - | | | LABORATORY | | | [facility] | | | SERVICES, | | | | | | CORE | | + + + + + + | EGFR NON | 35 (L) | >60 mL/min | [...] + + | CHLORIDE, | 97 | 97 - 108 mmol/L | [facility] [...] + + + + | BILIRUBIN | 0.9 | 0.3 - 1.2 mg/dL | [facility] [...] + + + | ALT (SGPT) | 26 | <=60 U/L | [facility] | | [...] | + + + + + | [facility] | [address] | [place] [address] | | | SERVICES, CORE | [address] | | | + + + + + documented in this encounter Visit Diagnoses + + | Diagnosis | + + | Liver transplant status (HCC) - Primary | + + documented in this encounter"
--- OUTSIDE RECORDS SUMMARY | ~2020-07-29 | XMS | Encounter Summary ---
Demographics + + + | Address | [address] | | | [place] [address] | + + + | Home Phone [...] [place] | | | | | [address] | | + + + + + Care Team Providers + +------+ + | Care Field Attendant Name | Role | Phone | + +------+ + PCP | Unavailable | + +------+ + Encounter Details +--------+ + + + + | Date | Type | Department | Care Team | Description | +--------+ + + + + | 03/23/ | Results | | Other, Faculty | | | 1998 | Only | | [phone] | | +--------+ + + + + [...] | | 2019 | [place] | | [address] | | | | | | [address] | | | | | | [place], [place] | | | | | | [address] | | | | | | [phone] | | | | | | | | +--------+ + + + + | 09/27/ | Telephone-S | Liver Transplant | Vimal Crowe MD | | | 2019 | [place] | | [address] | | | | | | [address], | | | | | | [place] [address] | | | | | | [phone] | | | | | | | [...] Rd | | | | | | [place], [place] | | | | | | [address] | | | | | | [phone] | | | | | | | | +--------+ + + + + documented as of this encounter Procedures + +--------+ + + + | Procedure Name | Priori | Date/Time | Associated Diagnosis | Comments | | | ty | | | | + +--------+ + + + | X-RAY SPINE | Routin | 03/28/1999 | | Results for this | | THORACOLUMBAR 2 | e | 10:40 AM | | procedure are in the | | VIEWS | | PDT | | results section. | + +--------+ + + + | MRI T-SPINE, UP/LOW, | Routin | 03/23/1999 | | Results for this | | 3 SEQ [facility] | e | 11:12 PM | | procedure are in the | | | | PDT | | results section. | + +--------+ + + + | MRI L-SPINE, 3 SEQ, | Routin | 03/23/1999 | | Results for this | | [facility] | e | 11:12 PM | | procedure are in the | | | | PDT | | results section. | + +--------+ + + + documented in this encounter Results SPINE THORACOLUMBAR 2 VIEWS (03/28/1999 10:40 AM PDT) + + + + + + | Component | Value | Ref Range | Performed | Pathologist | | | | | At | Signature | + + + + + + | SPINE | Radiologist 1: NADIR, | | | | | THORACOLUMB | RABIA, | | | | | AR 2 VIEWS | M.D.-Radiologist 2: | | | | | | DOUG DIAZ, | | | | | | M.D.THORACIC AND LUMBAR | | | | | | SPINE TWO VIEWS: | | | | | | 03/28/99 Dictated: | | | | | | 04/02/99 COMPARISON: | | | | | | There are no prior | | | | | | studies available for | | | | | | comparison. FINDINGS: | | | | | | The patient is in an | | | | | | external TLSO brace. | | | | | | Chronic | | | | | | appearingcompression | | | | | | deformities of the T11 | | | | | | and T12 vertebral bodies | | | | | | areidentified with an | | | | | | approximately 50% loss | | | | | | of height anteriorly and | | | | | | anacute kyphosis at | | | | | | this level. On the AP | | | | | | projection, the | | | | | | posteriorelements appear | | | | | | grossly intact, | | | | | | however, they are | | | | | | suboptimallyvisualized | | | | | | to assess for fracture. | | | | | | IMPRESSION: Chronic | | | | | | compression deformities | | | | | | of the T11 and T12 | | | | | | vertebral bodies | | | | | | asdescribed above. END | | | | | | OF IMPRESSION: | | | | + + + + + + + + | Specimen | + + | | + + + + + | Narrative | Performed At | + + + | Ordered by DESTINY SAWYER | | + + + + +---------+ + + | Performing | Address | City/State/Zipcode | Phone Number | | Organization | | | | + +---------+ + + | [facility] DEPARTMENT OF | | | | | RADIOLOGY | | | | + +---------+ + + MRI L-SPINE, 3 SHITAL NIXON (03/23/1999 11:12 PM PDT) + + + + + + | Component | Value | Ref Range | Performed | Pathologist | | | | | At | Signature | + + + + + + | MRI | Radiologist 1: MAIRA, | | | | | L-SPINE, 3 | YAYA Ren, | | | | | SHITAL NIXON | M.D.-Radiologist 2: | | | | | | MORTEZA HAN | | | | | | M.DCedricMAGNETIC RESONANCE | | | | | | IMAGING STUDY OF THE | | | | | | THORACOLUMBAR SPINE: | | | | | | 06/03/99at 2312 hours. | | | | | | Dictated on | | | | | | 03/24/99 COMPARISON: | | | | | | There are no prior | | | | | | studies available for | | | | | | comparison. CLINICAL | | | | | | HISTORY: Trauma with | | | | | | fracture of T11 and T12. | | | | | | TECHNIQUE: Magnetic | | | | | | resonance imaging study | | | | | | of the thoracolumbar | | | | | | spinewas performed with | | | | | | sagittal and axial T1 | | | | | | and T2 sequences. | | | | | | FINDINGS: The spinal | | | | | | cord is normal in size | | | | | | and signals. There is | | | | | | noevidence of cord | | | | | | edema. The conus | | | | | | terminates normally at | | | | | | L1. There is | | | | | | approximately 50% | | | | | | compression and bulging | | | | | | fracture of T11 andT12. | | | | | | The bulging element of | | | | | | T11 indents the | | | | | | anterior thecal sac | | | | | | butdoes not cause | | | | | | significant mass effect | | | | | | to the spinal cord. No | | | | | | other fracture is | | | | | | identified. IMPRESSION: | | | | | | 1. 50% compression | | | | | | fracture of T11 and T12 | | | | | | with minimal | | | | | | posteriorbulging | | | | | | component that does not | | | | | | cause mass effect | | | | | | through the spinalcord. | | | | | | 2. No spinal cord | | | | | | edema. END OF | | | | | | IMPRESSION: | | | | + + + + + + + + | Specimen | + + | | + + + + + | Narrative | Performed At | + + + | Ordered by SHEELA QUINONES M.D. | | + + + + +---------+ + + | Performing | Address | City/State/Zipcode | Phone Number | | Organization | | | | + +---------+ + + | [facility] DEPARTMENT OF | | | | | RADIOLOGY | | | | + +---------+ + + MRI T-SPINE, UP/LOW, 3 SEQ [facility] (03/23/1999 11:12 PM PDT) + + + + + + | Component | Value | Ref Range | Performed | Pathologist | | | | | At | Signature | + + + + + + | MRI | Radiologist 1: MAIRA, | | | | | T-SPINE, | YAYA Ren, | | | | | UP/LOW, 3 | M.D.-Radiologist 2: | | | | | SEQ | MORTEZA HAN, | | | | | | M.D.MAGNETIC RESONANCE | | | | | | IMAGING STUDY OF THE | | | | | | THORACOLUMBAR SPINE: | | | | | | 03/23/99at 2312 hours. | | | | | | Dictated on | | | | | | 03/24/99 COMPARISON: | | | | | | There are no prior | | | | | | studies available for | | | | | | comparison. CLINICAL | | | | | | HISTORY: Trauma with | | | | | | fracture of T11 and T12. | | | | | | TECHNIQUE: Magnetic | | | | | | resonance imaging study | | | | | | of the thoracolumbar | | | | | | spinewas performed with | | | | | | sagittal and axial T1 | | | | | | and T2 sequences. | | | | | | FINDINGS: The spinal | | | | | | cord is normal in size | | | | | | and signals. There is | | | | | | noevidence of cord | | | | | | edema. The conus | | | | | | terminates normally at | | | | | | L1. There is | | | | | | approximately 50% | | | | | | compression and bulging | | | | | | fracture of T11 andT12. | | | | | | The bulging element of | | | | | | T11 indents the | | | | | | anterior thecal sac | | | | | | butdoes not cause | | | | | | significant mass effect | | | | | | to the spinal cord. No | | | | | | other fracture is | | | | | | identified. IMPRESSION: | | | | | | 1. 50% compression | | | | | | fracture of T11 and T12 | | | | | | with minimal | | | | | | posteriorbulging | | | | | | component that does not | | | | | | cause mass effect | | | | | | through the spinalcord. | | | | | | 2. No spinal cord | | | | | | edema. END OF | | | | | | IMPRESSION: | | | | + + + + + + + + | Specimen | + + | | + + + + + | Narrative | Performed At | + + + | Ordered by SHEELA QUINONES M.D. | | + + + + +---------+ + + | Performing | Address | City/State/Zipcode | Phone Number | | Organization | | | | + +---------+ + + | [facility] DEPARTMENT OF | | | | | RADIOLOGY | | | | + +---------+ + + documented in this encounter Visit Diagnoses Not on filedocumented in this encounter"
--- OUTSIDE RECORDS SUMMARY | ~2020-07-29 | XMS | Encounter Summary ---
Demographics + + + | Address | [address] | | | [place] [address] | + + + | Home Phone [...] Author + + + | Author | [facility] | + + + | Organization | [facility] | + + + | Address | Unknown | + + + | Phone | Unavailable | + + + Support + + + + + | Name | Relationship | Address | Phone | + + + + + | Doreen Manley | ECON | [address] | | | | | [place] | | | | | [address] | | + + + + + Care Team Providers + +------+ + | Care Cylinder Block Mechanic Name | Role | Phone | + +------+ + | Sharon David MD | PCP | | + +------+ + Encounter Details +--------+------+ + + + | Date | Type | Department | Care Team | Description | +--------+------+ + + + | 09/24/ | Lab | [facility] at [facility] | | Liver transplant | | 2019 | | [address] | | status (HCC) | | | | [address] [facility] | | | | | | [place], 3rd floor | | | | | | [place], [place] | | | | | | [address] | | | | | | [phone] | | | +--------+------+ + + + [...] Rd | | | | | | [facility] [place] | | | | | | [address] | | | | | | [phone] | | | | | | | | +--------+ + + + + | 09/27/ | Telephone-S | Liver Transplant | Vimal Crowe MD | | | 2019 | [place] | | [address] | | | | | | [address], | | | | | | [place] [address] | | | | | | [phone] | | | | | | | [...] Rd | | | | | | [place], [place] | | | | | | [address] | | | | | | [phone] | | | | | | | | +--------+ + + + + documented as of this encounter Procedures + +--------+ + + + | Procedure Name | Priori | Date/Time | Associated Diagnosis | Comments | | | ty | | | | + +--------+ + + + | CBC AND AUTO DIFF | Routin | 09/24/2019 | Liver transplant | Results for this | | | e | 8:12 AM | status (HCC) | procedure are in the | | | | PST | | results section. | + +--------+ + + + | CBC, WITH | Routin | 09/24/2019 | Liver transplant | Results for this | | DIFFERENTIAL | e | 8:12 AM | status (HCC) | procedure are in the | | | | PST | | results section. | + +--------+ + + + | COMPLETE METABOLIC | Routin | 09/24/2019 | Liver transplant | Results for this [...] + | TACROLIMUS, WHOLE | Routin | 09/24/2019 | Liver transplant | Results for this | | BLOOD | e | 8:12 AM | status (HCC) | procedure are in the | | | | PST | | results section. | + +--------+ + + + | PHOSPHORUS, PLASMA | Routin | 09/24/2019 | Liver transplant | Results for this | | | e | 8:12 AM | status (HCC) | procedure are in the | | | | PST | | results section. | + +--------+ + + + | BILIRUBIN DIRECT | Routin | 09/24/2019 | Liver transplant | Results for this | | | e | 8:12 AM | status (HCC) | procedure are in the | | | | PST | | results section. | + +--------+ + + + | URIC ACID, PLASMA | Routin | 09/24/2019 | Liver transplant | Results for this | | | e | 8:12 AM | status (HCC) | procedure are in the | | | | PST | | results section. | + +--------+ + + + | MAGNESIUM, PLASMA | Routin | 09/24/2019 | Liver transplant | Results for this | | | e | 8:12 AM | status (HCC) | procedure are in the | | | | PST | | results section. | + +--------+ + + + documented in this encounter Results CBC AND AUTO DIFF (09/24/2019 8:12 AM PST) + + + + + + | Component | Value | Ref Range | Performed | Pathologist | | | | | At | Signature | + + + + + + | WHITE CELL | 3.48 (L) | 3.50 - 10.80 | [facility] | | | COUNT | | K/cu mm | LABORATORY | | | | | | SERVICES, | | | | | | CORE | | + + + + + + | RED CELL | 2.96 (L) | 4.50 - 6.00 | [facility] [...] + + + + | HEMATOCRIT | 28.4 (L) | 41.0 - 53.0 % | [facility] | | | | | | LABORATORY | | | | | | SERVICES, | | | | | | CORE | | + + + + + + | MCV | 95.9 | 80.0 - 100.0 fL | [facility] [...] + + + | RDW SD | 53.5 (H) | 35.1 - 46.3 fL | [facility] | | | | | | LABORATORY | | | | | | SERVICES, | | | | | | CORE | | + + + + + + | PLATELET | 107 (L) | 150 - 400 K/cu | [...] + + + + | NEUTROPHIL | 71.8 (H) | 50.0 - 70.0 % | [facility] | | | % | | | LABORATORY | | | | | | SERVICES, | | | | | | CORE | | + + + + + + | LYMPHOCYTE | 21.0 | 18.0 - 42.0 % | [facility] | | | % | | | LABORATORY | | | | | | SERVICES, | | | | | | CORE | | + + + + + + | MONOCYTE % | 4.0 | 3.5 - 9.0 % | [facility] | | | | | | LABORATORY | | | | | | SERVICES, | | | | | | CORE | | + + + + + + | EOS % | 2.3 | 1.0 - 3.0 % | [facility] [...] + + + + | NEUTROPHIL | 2.50 | 1.80 - 7.70 | [facility] | | | # | | K/cu mm | LABORATORY | | | | | | SERVICES, | | | | | | CORE | | + + + + + + | LYMPHOCYTE | 0.73 (L) | 1.00 - 4.80 | [facility] | | | # | | K/cu mm | LABORATORY | | | | | | SERVICES, | | | | | | CORE | | + + + + + + | MONOCYTE # | 0.14 | 0.10 - 0.90 | [facility] | [...] | + + + + + | [facility] | [address] | [place] [address] | | | SERVICES, CORE | MOISES [...] + | [facility] | [address] | [place] [address] | | | SERVICES, CORE | MOISES [...] | Test performed by immunoassay using Palafox Butter Wrapper i2000. . | [facility] | | Samples [...] [facility] | [address] | [place] [address] | | | SERVICES, SPECIAL | PARK [...] [facility] | [address] | [place] [address] | | | SERVICES, CORE | MOISES [...] [facility] | [address] | [place] [address] | | | SERVICES, CORE | PARK [...] + + + + + | [facility] | [address] | [place] [address] | | | SERVICES, [place] [facility] | [address] | [...] | | | LABORATORY | | | [place] | | | SERVICES, | | | [...] | + + + + + | [facility] | [address] | [place] [address] | | | SERVICES, [place] | [address] | | | + + + + + documented in this encounter Visit Diagnoses + + | Diagnosis | + + | Liver transplant status (HCC) | + + documented in this encounter"
--- OUTSIDE RECORDS SUMMARY | ~2020-07-29 | XMS | Encounter Summary ---
Demographics + + + | Address | [address] | | | [place] [address] | + + + | Home Phone [...] [place] | | | | | [address] | | + + + + + Care Team Providers + +------+ + | Care Smoking Pipe Repairer Name | Role | Phone | + +------+ + | Sharon David MD | PCP | | + +------+ + Encounter Details +--------+ + + + + | Date | Type | Department | Care Team | Description | +--------+ + + + + | 10/09/ | Pharmacy | Outpatient Retail | | | | 2018 | Visit | [facility] | | | | | | [address] | | | | | | Loop [place], [place] | | | | | | [address] | | | | | | [phone] | | | +--------+ + + + [...] Rd | | | | | | [place], [place] | | | | | | [address] | | | | | | [phone] | | | | | | | | +--------+ + + + + | 09/27/ | Telephone-S | Liver Transplant | Vimal Crowe MD | | | 2019 | [facility] | | [address] | | | | | | [facility] [place], | | | | | | [place] [address] | | | | | | [phone] | | | | | | | [...] [address] | | | | | | [place], [place] | | | | | | [address] | | | | | | [phone] | | | | | | | | +--------+ + + + + documented as of this encounter Visit Diagnoses Not on filedocumented in this encounter"
--- OUTSIDE RECORDS SUMMARY | ~2020-07-29 | XMS | Encounter Summary ---
Demographics + + + | Address | [address] | | | [place] [address] | + + + | Home Phone [...] [place] | | | | | [address] | | + + + + + Care Team Providers + +------+ + | Care Investment Consultant Name | Role | Phone | + +------+ + | Sharon David MD | PCP | | + +------+ + Encounter Details +--------+ + + + + | Date | Type | Department | Care Team | Description | +--------+ + + + + | 11/24/ | Abstract | Clinical | Vimal Crowe MD | | | 2019 | | Transplant Services | [address] | | | | | [address] | [address] [place], | | | | | [place], | [place] [address] | | | | | [place] [address] | [phone] | | | | | [phone] | | | +--------+ + + + [...] Rd | | | | | | [place], [place] | | | | | | [address] | | | | | | [phone] | | | | | | | | +--------+ + + + + | 09/27/ | Telephone-S | Liver Transplant | Vimal Crowe MD | | | 2019 | [place] | | [address] | | | | | | [facility] [address] [place], | | | | | | [place] [address] | | | | | | [phone] | | | | | | | [...] Rd | | | | | | [place], [place] | | | | | | [address] | | | | | | [phone] | | | | | | | | +--------+ + + + + documented as of this encounter Procedures + +--------+ + + + | Procedure Name | Priori | Date/Time | Associated Diagnosis | Comments | | | ty | | | | + +--------+ + + + | LIVER TRANSPLANT | Routin | 11/23/2019 | | Results for this | | POST PANEL (EXT | e | 10:58 AM | | procedure are in the | | RESULTS) | | PST | | results section. | + +--------+ + + + documented in this encounter Results LIVER TRANSPLANT POST PANEL (EXT RESULTS) (11/23/2019 10:58 AM PST) + + + + + + | Component | Value | Ref Range | Performed | Pathologist | | | | | At | Signature | + + + + + + | SODIUM, | 145 | mmol/L | [facility] | | | [...] + + | CHLORIDE, | 105 | mmol/L | [facility] | | | PLASMA | | | LAB - | | | (LAB) | | | [place] | | + + + + + + | TOTAL CO2, | 26 | mmol/L | [facility] | | | PLASMA | | | LAB - | | | (LAB) | | | [place] | | + + + + + + | GLUCOSE, | 153 (A) | 65 - 110 mg/dL | [...] + + + + | CREATININE | 1.74 | mg/dL | [facility] | | | PLASMA | | | LAB - | | | (LAB) | | | [place] | | + + + + + + | CALCIUM, | 9.0 | mg/dL | [facility] | [...] + + | AST(SGOT) | 12 | U/L | [facility] | | | | | | LAB - | | | | | | [place] | | + + + + + + | ALT (SGPT) | 13 | U/L | [facility] | | | | | | LAB - | | | | | | [place] | | + + + + + + | WHITE CELL | 3.8 | K/cu mm | [facility] | | | COUNT | | | LAB - | | | | | | [place] | | + + + + + + | HEMATOCRIT | 32.1 | % | [facility] | | | [...] + + + + | PLATELET | 95 | K/cu mm | [facility] | | | COUNT | | | LAB - | | | | | | [place] | | + + + + + + | TACROLIMUS | 4.8 | ng/mL | [facility] | | | [address] | [place] | [phone] | | [place] | | | | + + + + + documented in this encounter Visit Diagnoses Not on filedocumented in this encounter"
--- OUTSIDE RECORDS SUMMARY | ~2020-07-29 | XMS | Encounter Summary ---
Demographics + + + | Address | [address] | | | [place] [address] | + + + | Home Phone | | + + + | Preferred Language | Unknown | + + + | Marital Status | Single | + + + | Sikhism Affiliation | Unknown | + + + | Race | White | + + + | Ethnic Group | Not or | + + + Author + + + | Author | [facility] | | | and [place] | + + + | Organization | [facility] | | | and [place] | + + + | Address | Unknown | + + + | Phone | Unavailable | + + + Support + + +---------+ + | Name | Relationship | Address | Phone | + + +---------+ + | Kavya Shivam | ECON | Unknown | | + + +---------+ + Care Team Providers + +------+ + | Care Butcherette Name | Role | Phone | + +------+ + PCP | Unavailable | + +------+ + Encounter Details +--------+ + + + + | Date | Type | Department | Care Team | Description | +--------+ + + + + | 07/17/ | Hospital | [facility] | Arlene Corrales MD | Anemia, unspecified | | 2018 - | Encounter | [facility] | [address] | type; ETOH abuse; | | | | CARE [address]LO[phone] | [place] [address] | Hyperbilirubinemia; | | 07/24/ | | [address] | [phone] | CULLEN (acute kidney | | 2018 | | [place], [place] | | injury) (HCC); | | | | [address] | | Thrombocytopenia | | | | [phone] | | (HCC); Alcoholic | | | | | | cirrhosis of liver | | | | | | with ascites (HCC); | | | | | | Abnormal blood | | | | | | coagulation profile | +--------+ + + + + Social [...] + + + | Blood Pressure | 151/68 | 07/24/2018 2:35 PM | | | | | PDT | | + + + + + | Pulse | 76 | 07/24/2018 2:35 PM | | | | | PDT | | + + + + + | Temperature | 36.6 C (97.9 F) | 07/24/2018 2:35 PM | | | | | PDT | | + + + + + | Respiratory Rate | 20 | 07/24/2018 2:35 PM | | | | | PDT | | + + + + + | Oxygen Saturation | - | - | | + + + + + | Inhaled Oxygen | - | - | | | Concentration | | | | + + + + + | Weight | 104 kg (229 lb 3.2 | 07/24/2018 2:35 PM | | | | oz) | PDT | | + + + + + | Height | 180.3 cm (5' 11") | 07/24/2018 2:35 PM | | | | | PDT | | + + + + + | Body Mass Index | 31.97 | 07/24/2018 2:35 PM | | | | | PDT | | + + + + + documented in this encounter Discharge Summaries Aylin Jiménez MD - 07/24/2018 9:28 AM PDTFormatting of this note might be differen t from the original. Discharge Summaries by Aylin Jiménez MD at 07/24/18927 Author: Aylin Jiménez MD Service: Hospitalist Author Type: Physician Filed: 07/24/18 1230 Date of Service: 07/24/18927 Status: Signed Full Service Supervisor: Aylin Jiménez MD (Physician) [facility] Service: Hospitalist Physician Discharge Summary Patient ID: Doug Duran 1965 53 y.o. Admit date: 07/17/2018 Discharge date: 07/24/18 Admitting Physician: Arlene Corrales MD Discharge Physician: Aylin Jiménez MD Consultants: Treatment Team: Consulting Physician: Lee Foley IV, MD Consulting Physician: Efraín Quevedo MD Admitting Provider: Arlene Corrales MD Primary Discharge Diagnoses: Principal Problem: Alcoholic cirrhosis of liver with ascites (HCC) Active Problems: Abnormal blood coagulation profile ETOH abuse Hyperbilirubinemia Anemia Thrombocytopenia (HCC) Hyponatremia Multiple open wounds of lower leg CULLEN (acute kidney injury) (HCC) Pulmonary hypertension (moderate/severe) Splenomegaly HPI and Hospital Course: admission H and P Dr. Corrales:"The patient is a 53 y.o.malewith significant past medical history of EOH LIVER CIRRHOSIS, ANEMIA, COAGULOPATHY, HYPERBILIRUBINEMIA, transfers from [facility] for abnormal labs, worsening leg wounds . He was admitted in [facility] 2017 for sepsis, pna, liver cirrhosis. He improved and discharged with instruction to stop etoh. Since then he has cut down but still drinking 3-4 beers / week. Has not seen any liver specialist. He went to see the Er there for worsening leg edema, wounds. Then noted his Hb 5.4. So sent here for further care. He denies any bleeding from anywhere. No fever, chills. He only take 81 mg asa once in a while. 07/24/18 For Discharge Patient admitted for Macrocytic anemia with history of severe alcholism and liver cirrosis - Hemoglobin 5.4, MCV 114, on presentation - Unfortunately iron panel not drawn prior to transfusion, post transfusion borderline iron deficiency and anemia noted - Begin IV ferric gluconate 125 IV for 3 days--last dose, 07/23/18 - History of hepatic cirrhosis, denies bleeding/melanotic stools - LDH 403. Elen test negative - Hematology consult (Dr. Quevedo); suspect low-grade hemolysis or ineff ective erythropoiesis, splenic sequestration from splenomegaly (on ultrasound noted to be 21 .3 x 7.5 x 20.8 cm) -Ambulatory referral to hematology was completed - GI workup; upper &lower endoscopy; no signs of bleeding - No active bleeding noted - Received total of 6 units packed RBC, currently hemoglobin +- 7.0 - B12 and folic acid levels are normal. -Recommend strict outpatient monitoring and treansfusion PRN as outpatient. Hepatic cirrhosis - History of EtOH, drinks for over 30 years. - Coagulopathy, INR 1.8; administered vitamin K subcu - Thrombocytopenia 81,000 -- 88,000 - Mild ascites noted on exam - Hypoalbuminemia, received 25 g IV albumin - Ammonia level normal - US liver , no gallbladder disease, positive steatosis, splenomegaly - Hyperbilirubinemia, elevated indirect >direct - Viral chronic hepatitis panel; negative - Echocardiogram; pulmonary hypertension with right ventricular enlargement; cardio hepatic syndrome/hepatopulmonary syndrome also on differential (hepatojugular reflex noted on exam) - Treatment; alcohol cessation, correct anemia, cautious diures is (IV Lasix 20 bid) Change to Lasix 20 mg BID PO Petechiae - Upper and lower lower extremity petechiae Noted, minimal trunk involvement - Due to thrombocytopenia/coagulopathy/lymphedema/right-sided heart failure - Rule out Vasculitis workup; ESR NL, DIOGENES/ANCA Lower extremity lymphedema - Multifactorial: - Echocardiogram; findings suggestive of pulmonary hypertension with clinical signs of righ t-sided heart failure - Secondary to liver disease/portal hypertension/hypoalbuminemia - Lower extremity ultrasound negative for deep vein thrombosis - IV Lasix at 20 mg BiD changed to PO - Venous stasis ulcers; malodorous; wound culture positive for group B strep Continued wound care through discharge, IV Ancef day # 4,will transitioning to Keflex PO Clinically improved Renal insufficiency - Improved - Creatinine 1.6-1.7--appears to be at baseline All questions were answered for patient who agreed to plan. Discharged in stable, but guard ed condition Past Medical History: History reviewed. No pertinent past medical history. Past Surgical History Procedure Laterality Date COLONOSCOPY WITH EGD N/A 07/20/2018 Procedure: COLONOSCOPY W/ EGD; Surgeon: Lee Foley IV, MD; Location: [facility]; Service: Gastroenterology; Laterality: N/A; Discharged Condition: Stable for discharge as stated above. Significant Diagnostic Studies: Xr Chest Pa And Lateral Result Date: 07/17/2018 1. Cardiomegaly and mild central pulmonary venous congestion. 2. Suspect small left pleur al effusion. Us Abdomen, Limited Result Date: 07/17/2018 1. No gallstones or findings of acute cholecystitis or biliary dilatation. 2. Echogenic niels er suggesting steatosis. 3. A right pleural effusion is seen. RADIA Electronically signed by Jonn Campa MD on Jul 17 2018 8:07PM Referring Provider Line: [phone] ID: [id number] Us Kidneys And Bladder Result Date: 07/18/2018 1. Normal renal ultrasound exam. 2. Post void bladder residual of 194 cc. 3. Splenomegaly. RADIA Electronically signed by Ignacio Kenyon MD on Jul 18 2018 1:32AM Referring Provide r Line: [phone] ID: [id number] Us Lower Extremity Venous Doppler Bilateral Result Date: 07/18/2018 1. No evidence of lower extremity deep vein thrombosis. Echo Cardiac Adult Complete Result Date: 07/18/2018 1. Overall left ventricular systolic function is normal with, an EF between 60 - 65 %. 2. P seudonormal LV diastolic filling pattern, consistent with elevated LA pressure and moderate dysfunction (Grade II). 3. Moderate tricuspid regurgitation present. 4. There is moderate to severe pulmonary hypertension. Discharge Vitals: Vitals: 07/24/18 0429 07/24/18 0535 07/24/18 0738 07/24/18 1112 BP: 141/71 142/68 142/75 144/72 BP Location: Left upper arm Left upper arm Left upper arm Pulse: 70 82 70 Resp: Temp: 98.3 F (36.8 C) 98.2 F (36.8 C) 98.2 F (36.8 C) TempSrc: Oral Oral Oral SpO2: 96% 98% 99% Weight: Height: Discharge Exam: General: Well nourished. Psych: Alert and oriented x 3. Calm, cooperative. Cardiovascular: Regular rate and rhythm, no murmurs, no thrills. Normal PMI. Respiratory: Clear to auscultation, no wheezing or crackles, breathing non labored. Gastrointestinal: Soft, non-tender, non-distended, positive bowel sounds. No HSM. Musculoskeletal: No edema in bilateral lower extremities. No joint swelling. Skin: Warm and dry, no rashes. Neck: No JVD, Trachea midline. Neurological: Non focal. Motor grossly intact. LABS: Recent Labs Lab 07/24/18 0520 07/23/18 0843 07/23/18 0513 07/22/18 0522 07/20/18 0556 07/19/18 0533 07/18/18 0644 WBC 5.41 -- 4.54 4.80 < > 6.06 6.82 -- 5.69 RBC 1.98* -- 2.00* 2.01* < > 2.15* 2.23* -- 1.65* HGB 6.8* 6.9* 7.1* 7.2* < > 7.8* 8.0* < > 6.4* HCT 18.7* 18.7* 19.3* 19.3* < > 20.6* 21.5* < > 17.6* MCV 94.3 -- 96.3 95.9 < > 95.8 96.5 -- 106.8* MCH 34.4* -- 35.5* 35.7* < > 36.4* 35.9* -- 38.7* MCHC 36.5* -- 36.8* 37.2* < > 38.0* 37.3* -- 36.3* RDW 84.4* -- 86.2* 92.8* < > 93.2* 95.8* -- 68.7* PLT 82* -- 87* 88* < > 94* 78* -- 81* MPV 6.7 -- 7.0 7.0 < > 7.4 7.7 -- 7.7 DIFFTYPE -- -- -- -- -- MANUAL MANUAL -- AUTOMATED < > = values in this interval not displayed. Recent Labs Lab 07/24/18 0507/23/18 0513 07/22/18 05 NA 136 135 138 K 3.7 3.9 3.7 CL 101 101 101 CO2 26 27 25 BUN 28* 25 24 CREATININE 1.7* 1.6* 1.6* PROT 7.2 7.1 6.8 BILITOT 10.2* 10.5* 9.8* ALT 17 15 13 AST 76* 72* 60* GLUF 126* 110* 104* No results for input(s): CKTOTAL, TROPONINI, TROPONINT, CKMBINDEX in the last 168 hours. Recent Labs Lab 07/19/18 0533 07/18/18 0644 PHOS 3.5 3.4 Recent Labs Lab 07/19/18 0533 07/18/18 0644 MG 1.7 1.7 Invalid input(s): ABG Disposition: Follow up: [facility] Unit [address] [phone] ext. [phone] Go on 07/30/2018 10:30am Sharon David MD [address] [facility] [place] [address] In 2 days Medication List START taking these medications cephALEXin 250 MG capsule QTY: 56 capsule Refills: 0 Commonly known as: KEFLEX Take 1 capsule by mouth 4 (four) times daily. furosemide 20 MG tablet QTY: 60 tablet Refills: 11 Commonly known as: LASIX Take 1 tablet by mouth Two times daily. HYDROcodone-acetaminophen 5-325 MG per tablet QTY: 30 tablet Refills: 0 Commonly known as: NORCO Take 1 tablet by mouth every 4 (four) hours as needed. midodrine 5 MG tablet QTY: 60 tablet Refills: 0 Commonly known as: PROAMATINE Take 1 tablet by mouth 2 (two) times daily for 30 days. Where to Get Your Medications You can get these medications from any pharmacy Bring a paper prescription for each of these medications cephALEXin 250 MG capsule furosemide 20 MG tablet HYDROcodone-acetaminophen 5-325 MG per tablet midodrine 5 MG tablet Aylin Jiménez MD 07/24/2018 12:30 PM Discharge took >30 minutes, to include final examination, discussion of admission, and pre paration of prescriptions, instructions for ongoing care, follow up and dictation of summary . documented in t his encounter Medications at Time of Discharge + + + +---------+ + + | Medication | Sig | Dispensed | Refills | Start | End Date | | | | | | Date | | + + + +---------+ + + | cephalexin | Take 1 capsule by | 56 | 0 | 07/24/20 | | | (KEFLEX) 250 mg | mouth 4 (four) times | capsule | | 18 | 0 | | capsule | daily. | | | | | + + + +---------+ + + | furosemide (LASIX) | Take 1 tablet by | 60 | 11 | 07/24/20 | | | 20 mg tablet | mouth Two times | tablet | | 18 | 9 | | | daily. | | | | | + + + +---------+ + + | midodrine | Take 1 tablet by | 60 | 0 | 07/24/20 | | | (PROAMATINE) 5 mg | mouth 2 (two) times | tablet | | 18 | 8 | | tablet | daily for 30 days. | | | | | + + + +---------+ + + documented as of this encounter Progress Notes Conversion Transaction, Provider Unknown - 07/24/2018 11:37 AM PDTFormatting of this note m ight be different from the original. Nurse Progress Note by Vicente Oakley RN at 07/24/181136 Author: Vicente Oakley RN Service: Wound/Ostomy Care Author Type: Registered Nurse Filed: 07/24/181138 Date of Service: 07/24/181136 Status: Signed Full Service Supervisor: Vicente Oakley RN (Registered Nurse) [facility] Service: Wound Care Consult Note Hospital Day: LOS: 7 days Post-Op Day: 4 Days Post-Op SUBJECTIVE Patient Summary: Wound care presents to follow up on bilateral ankle wounds being cedric ated with Honey OBJECTIVE Wound Ankle Bilateral cellulitis with skin breakdown (Active) Dressing Applied Moist to dry 07/24/2018 11:36 AM State of Healing Epithelialized 07/24/2018 11:36 AM Site Assessment Dry;Intact 07/24/2018 11:36 AM Rita-wound Assessment Dry;Intact 07/24/2018 11:36 AM Number of days: 6 PROBLEM LIST Principal Problem: Alcoholic cirrhosis of liver with ascites (HCC) Active Problems: Abnormal blood coagulation profile ETOH abuse Hyperbilirubinemia Anemia Thrombocytopenia (HCC) Hyponatremia Multiple open wounds of lower leg CULLEN (acute kidney injury) (HCC) Pulmonary hypertension (moderate/severe) Splenomegaly ASSESSMENT & PLAN The wounds were debrided well with the honey, today the extra skin was removed to find good epithelialization below. One last dressing of wet to dry was placed to try and get off the rest of any scabs upon removal tonight before bed when the patient is home. He was told to keep the new skin moist so it does not crack going forward but will not need further dressi ng changes. Thank you for allowing me to participate in the care of this patient. Please call if there are any additional questions. Vicente Oakley RN 11:37 AM 07/24/2018 onver arjun Transaction, Provider Unknown - 07/24/2018 9:49 AM PDT Case Management by Jah Rangel RN at 07/24/1849 Author: Jah Rangel RN Service: (none) Author Type: Registered Nurse Filed: 07/24/18 0950 Date of Service: 07/24/18948 Status: Signed Full Service Supervisor: Jah Rangel RN (Registered Nurse) 9:49 AM Disposition: Home Transportation: Self Patient set up with [facility] Wound Care unit C All DC paperwork completed Patient and family in agreement with discharge plan Medicare important message (Given or N/A): RL Rangel onver arjun Transaction, Provider Unknown - 07/24/2018 3:47 AM PDT Nurse Progress Note by Yessica Saxena RN at 07/24/18346 Author: Yessica Saxena RN Service: (none) Author Type: Registered Nurse Filed: 07/24/18 0540 Date of Service: 07/24/18346 Status: Signed Full Service Supervisor: Yessica Saxena RN (Registered Nurse) Pt expressing disgruntlement about not being discharged yesterday. Pt stated, " I want to l eave and go home." "I miss my dogs." Talked with pt about why he should stay, and the benefi ts of complying Treatment. Pt expressed understanding but still wishes he could go home. W ill continue to monitor. End of shift audit and 24H chart check completed Yessica Saxena RN aLee wang MD - 07/23/2018 11:35 PM PDTFormatting of this note might be different from t he original. Progress Notes by Lee Foley IV, MD at 07/23/182334 Author: Lee Foley IV, MD Service: Gastroenterology Author Type: Physician Filed: 07/23/18 8237 Date of Service: 07/23/182334 Status: Signed Full Service Supervisor: Lee Foley IV, MD (Physician) [facility] Gastroenterology Service Inpatient Consult Follow Up Note Hospital Day: LOS: 6 days SUBJECTIVE Patient Summary: Profound macrocytic anemia, alcohol associated cirrhosis, jaundice, thrombocytopenia, splenomegaly, pulmonary hypertension Events: EGD and colonoscopy unrevealing for any causes of chronic or acute blood loss . No melena or other evidence for bleeding. He has continued to require additional transfusion. Scheduled Medications cephALEXin 250 mg Oral Q6H cyanocobalamin 1,000 mcg Intramuscular Q30 Days folic acid 1 mg Oral Daily furosemide 20 mg Oral BID-Diuretics midodrine 5 mg Oral BID pantoprazole 40 mg Intravenous QAM AC sodium chloride (PF) 10 mL Intravenous Q8H thiamine 100 mg Oral Daily Continuous Infusions PRN Medications acetaminophen OR acetaminophen, HYDROcodone-acetaminophen OR HYDROcodone-acetaminop hen, LORazepam, ondansetron OR ondansetron, polyethylene glycol OBJECTIVE Vital Signs: BP 150/73 (BP Location: Left upper arm) | Pulse 60 | Temp 98.3 F (36.8 C) (Oral) | R azeb 18 | Ht 1.803 m (5' 11") | Wt 104 kg (229 lb 3.2 oz) | SpO2 100% | BMI 31.97 kg/m Vital signs reviewed. General appearance: Appears well though jaundiced but not in acute distress. Psychiatric: Appropriate affect, behavior and judgment appear normal. Neurological: Patient is alert and oriented. DATA Lab data: CBC: Lab Results Component Value Date WBC 4.54 07/23/2018 RBC 2.00 (L) 07/23/2018 HGB 6.9 (LL) 07/23/2018 HCT 18.7 (LL) 07/23/2018 MCV 96.3 07/23/2018 MCH 35.5 (H) 07/23/2018 MCHC 36.8 (H) 07/23/2018 RDW 86.2 (H) 07/23/2018 PLT 87 (L) 07/23/2018 MPV 7.0 07/23/2018 DIFFTYPE MANUAL 07/20/2018 CMP: Lab Results Component Value Date NA 135 07/23/2018 K 3.9 07/23/2018 CL 101 07/23/2018 CO2 27 07/23/2018 ANIONGAP 11 07/23/2018 GLUF 110 (H) 07/23/2018 BUN 25 07/23/2018 CREATININE 1.6 (H) 07/23/2018 BCR 16 07/23/2018 CA 7.8 (L) 07/23/2018 PROT 7.1 07/23/2018 ALB 2.6 (L) 07/23/2018 GLOB 4.5 07/23/2018 BILITOT 10.5 (H) 07/23/2018 ALP 121 (H) 07/23/2018 AST 72 (H) 07/23/2018 ALT 15 07/23/2018 EGFR 45 (L) 07/23/2018 PT/INR: Lab Results Component Value Date INR 1.7 07/21/2018 PTT: Lab Results Component Value Date APTT 42 (H) 07/17/2018 [APTT} IRON: Lab Results Component Value Date IRON 135 07/17/2018 TIBC: Lab Results Component Value Date IRON 135 07/17/2018 TIBC 177 (L) 07/17/2018 LABIRON 76 (H) 07/17/2018 UIBC 42 07/17/2018 FERRITIN: Lab Results Component Value Date FERRITIN 1,016 (H) 07/17/2018 Lipase: Lab Results Component Value Date LIPASE 395 (H) 07/17/2018 Diagnostic imaging: No new studies PROBLEM LIST Principal Problem: Alcoholic cirrhosis of liver with ascites (HCC) Active Problems: Abnormal blood coagulation profile ETOH abuse Hyperbilirubinemia Anemia Thrombocytopenia (HCC) Hyponatremia Multiple open wounds of lower leg CULLEN (acute kidney injury) (HCC) Pulmonary hypertension (moderate/severe) Splenomegaly ASSESSMENT & PLAN Profound macrocytic anemia Alcohol associated cirrhosis Thrombocytopenia Coagulopathy with elevated INR Ongoing alcohol abuse Hemoglobin continues to trend down again and requiring additional transfusion. No evidence to suggest GI bleeding. Must be increased component of hemolysis. Overall GI issues stable. Recommendations 1. Continue encouraging nutrition. 2. Strongly counseled on need for alcohol abstinence forever and should be offered resource s to support this. 3. Consider discussing ongoing transfusions with Hematology service. 4. When anemia issue controlled could discharge from GI standpoint. 5. I will be out of town this next week. Can try cellphone if questions or will need to dis cuss with saxophone player GI. Stephy Foley IV, M.D. [facility] 07/23/2018 This note was dictated using [employer] voice recognition software. Document was reviewed at ti me of dictation but [id number] errors may be present. Please call with any questions or c larifications. onversion Trans action, Provider Unknown - 07/23/2018 4:34 PM PDT Nurse Progress Note by Vicente Oakley RN at 07/23/18 3109 Author: Vicente Oakley RN Service: Wound/Ostomy Care Author Type: Registered Nurse Filed: 07/23/18 4655 Date of Service: 07/23/18 6716 Status: Signed Full Service Supervisor: Vicente Oakley RN (Registered Nurse) [facility] Service: Wound Care Consult Note Hospital Day: LOS: 6 days Post-Op Day: 3 Days Post-Op SUBJECTIVE Patient Summary: Wound care presents to evaluate bilateral ankle wounds. OBJECTIVE Debridement of tissue, though there is scrubbing needed. PROBLEM LIST Principal Problem: Alcoholic cirrhosis of liver with ascites (HCC) Active Problems: Abnormal blood coagulation profile ETOH abuse Hyperbilirubinemia Anemia Thrombocytopenia (HCC) Hyponatremia Multiple open wounds of lower leg CULLEN (acute kidney injury) (HCC) Pulmonary hypertension (moderate/severe) Splenomegaly ASSESSMENT & PLAN Wound care will follow up tomorrow morning to clean the wounds as well as possible and appl y one more layer of honey dressing before discharge if needed. Thank you for allowing me to participate in the care of this patient. Please call if there are any additional questions. Vicente Oakley RN 4:34 PM 07/23/2018 Aylin Gotti MD - 07/23/2018 12:05 PM PDT Progress Notes by Aylin Jiménez MD at 07/23/18 1202 Author: Aylin Jiménez MD Service: Hospitalist Author Type: Physician Filed: 07/23/18 3148 Date of Service: 07/23/184 Status: Signed Full Service Supervisor: Aylin Jiménez MD (Physician) [facility] Service: Hospitalist Progress Note Hospital Day: LOS: 6 days SUBJECTIVE Patient Summary: From HPI admission H and P Dr. Corrales:"The patient is a 53 y.o. male with significant past medical hi story of EOH LIVER CIRRHOSIS, ANEMIA, COAGULOPATHY, HYPERBILIRUBINEMIA, transfers from [facility] for abnormal labs, worsening leg wounds . He was admitted in [facility] end of december 2017 for sepsis, pna, liver cirrhosis. He improved and discharged with instruction to stop etoh. Since then he has cut down but still drinking 3-4 beers / week. Has not seen any li charlie specialist. He went to see the Er there for worsening leg edema, wounds. Then noted his Hb 5.4. So se nt here for further care. He denies any bleeding from anywhere. No fever, chills. He only take 81 mg asa once in a while. 07/23/18 The patient states he is feeling well. He is able to ambulate without difficulty, remains afebrile. He does feel fatigued. He denies nausea and vomiting. He is able to ta ke adequate POs by mouth. Scheduled Medications cephALEXin 250 mg Oral Q6H cyanocobalamin 1,000 mcg Intramuscular Q30 Days iron gluconate 125 mg Intravenous Q24H folic acid 1 mg Oral Daily furosemide 20 mg Oral BID-Diuretics midodrine 5 mg Oral BID pantoprazole 40 mg Intravenous QAM AC sodium chloride (PF) 10 mL Intravenous Q8H sodium chloride 10 mL Intravenous Q8H thiamine 100 mg Oral Daily Continuous Infusions PRN Medications acetaminophen OR acetaminophen, HYDROcodone-acetaminophen OR HYDROcodone-acetaminop hen, LORazepam, ondansetron OR ondansetron, polyethylene glycol OBJECTIVE Vital Signs: BP 142/70 (BP Location: Left upper arm) | Pulse 75 | Temp 98.5 F (36.9 C) (Oral) | R azeb 18 | Ht 1.803 m (5' 11") | Wt 104 kg (229 lb 3.2 oz) | SpO2 97% | BMI 31.97 kg/m Patient Vitals for the past 24 hrs: BP Temp Temp src Pulse Resp SpO2 Weight 07/23/18 1127 142/70 98.5 F (36.9 C) Oral 75 18 97 % - 07/23/18 0737 144/67 98.2 F (36.8 C) Oral 81 18 99 % - 07/23/18 0605 140/67 - - - - - - 07/23/18 0236 134/69 98.3 F (36.8 C) Oral 83 16 97 % - 07/22/18 2312 137/71 98.4 F (36.9 C) Oral 82 16 99 % - 07/22/18 1955 164/80 98 F (36.7 C) Oral 81 18 100 % 104 kg (229 lb 3.2 oz) 07/22/18 1554 134/69 97.9 F (36.6 C) Oral 71 16 100 % - Intake/Output Summary (Last 24 hours) at 07/23/18 1205 Last data filed at 07/23/18 1100 Gross per 24 hour Intake 2881 ml Output 1100 ml Net 1781 ml Physical Exam Constitutional: He is oriented to person, place, and time and well-developed, well-nourishe d, and in no distress. No distress. HENT: Head: Normocephalic and atraumatic. Eyes: No scleral icterus. Cardiovascular: Normal rate and regular rhythm. Pulmonary/Chest: Effort normal and breath sounds normal. No respiratory distress. He has no wheezes. Abdominal: Soft. Bowel sounds are normal. He exhibits no distension. There is no tenderness . Musculoskeletal: He exhibits no edema. Neurological: He is alert and oriented to person, place, and time. Skin: Skin is warm and dry. He is not diaphoretic. Psychiatric: Mood and affect normal. Nursing note and vitals reviewed. DATA Recent Labs Lab 07/23/18 0843 07/23/1851207/22/1852107/21/1851707/20/18 0556 07/19/18 0507/18/18 0644 WBC -- 4.54 4.80 5.62 6.06 6.82 -- 5.69 RBC -- 2.00* 2.01* 1.96* 2.15* 2.23* -- 1.65* HGB 6.9* 7.1* 7.2* 6.9* 7.8* 8.0* < > 6.4* HCT 18.7* 19.3* 19.3* 18.9* 20.6* 21.5* < > 17.6* MCV -- 96.3 95.9 96.8 95.8 96.5 -- 106.8* MCH -- 35.5* 35.7* 35.2* 36.4* 35.9* -- 38.7* MCHC -- 36.8* 37.2* 36.3* 38.0* 37.3* -- 36.3* RDW -- 86.2* 92.8* 90.1* 93.2* 95.8* -- 68.7* PLT -- 87* 88* 98* 94* 78* -- 81* MPV -- 7.0 7.0 7.1 7.4 7.7 -- 7.7 DIFFTYPE -- -- -- -- MANUAL MANUAL -- AUTOMATED < > = values in this interval not displayed. Recent Labs Lab 07/23/1851207/22/1852107/21/18517 NA 135 138 138 K 3.9 3.7 3.7 CL 101 101 103 CO2 27 25 25 BUN 25 24 19 CREATININE 1.6* 1.6* 1.6* PROT 7.1 6.8 7.0 BILITOT 10.5* 9.8* 10.7* ALT 15 13 15 AST 72* 60* 60* GLUF 110* 104* 107* No results for input(s): CKTOTAL, TROPONINI, TROPONINT, CKMBINDEX in the last 168 hours. Recent Labs Lab 07/19/18 0533 07/18/18 0644 PHOS 3.5 3.4 Recent Labs Lab 07/19/18 0533 07/18/18 0644 MG 1.7 1.7 Invalid input(s): ABG No results for input(s): CALCIUM in the last 168 hours. Xr Chest Pa And Lateral Result Date: 07/17/2018 1. Cardiomegaly and mild central pulmonary venous congestion. 2. Suspect small left pleur al effusion. Us Abdomen, Limited Result Date: 07/17/2018 1. No gallstones or findings of acute cholecystitis or biliary dilatation. 2. Echogenic niels er suggesting steatosis. 3. A right pleural effusion is seen. RADIA Electronically signed by Jonn Campa MD on Jul 17 2018 8:07PM Referring Provider Line: [phone] ID: [id number] Us Kidneys And Bladder Result Date: 07/18/2018 1. Normal renal ultrasound exam. 2. Post void bladder residual of 194 cc. 3. Splenomegaly. RADIA Electronically signed by Ignacio Kenyon MD on Jul 18 2018 1:32AM Referring Provide r Line: [phone] ID: [id number] Us Lower Extremity Venous Doppler Bilateral Result Date: 07/18/2018 1. No evidence of lower extremity deep vein thrombosis. Echo Cardiac Adult Complete Result Date: 07/18/2018 1. Overall left ventricular systolic function is normal with, an EF between 60 - 65 %. 2. P seudonormal LV diastolic filling pattern, consistent with elevated LA pressure and moderate dysfunction (Grade II). 3. Moderate tricuspid regurgitation present. 4. There is moderate to severe pulmonary hypertension. PROBLEM LIST Principal Problem: Alcoholic cirrhosis of liver with ascites (HCC) Active Problems: Abnormal blood coagulation profile ETOH abuse Hyperbilirubinemia Anemia Thrombocytopenia (HCC) Hyponatremia Multiple open wounds of lower leg CULLEN (acute kidney injury) (HCC) Pulmonary hypertension (moderate/severe) Splenomegaly ASSESSMENT & PLAN Macrocytic anemia - Hemoglobin 5.4, MCV 114, on presentation - Unfortunately iron panel not drawn prior to transfusion, post transfusion borderline iron deficiency and anemia noted - Begin IV ferric gluconate 125 IV for 3 days--last dose, 07/23/18 - History of hepatic cirrhosis, denies bleeding/melanotic stools - Concern for possible hemolysis, LDH 403. Elen test negative - Hematology consult (Dr. Quevedo); suspect low-grade hemolysis or ineffective kenneth thropoiesis, splenic sequestration from splenomegaly (on ultrasound noted to be 21.3 x 7.5 x 20.8 cm) - GI workup; upper & lower endoscopy; no signs of bleeding - Currently no active bleeding - Received total of 5 units packed RBC, currently hemoglobin +- 7.0 - B12 and folic acid levels are normal, changed IV to PO Hepatic cirrhosis - History of EtOH, drinks for over 30 years, currently down to 2-3 beer a day, last drink a pproximately 3 days ago - No signs of alcohol withdrawals, DC CIWA - Coagulopathy, INR 1.8; administer vitamin K subcu - Thrombocytopenia 81,000 -- 88,000 - Mild ascites noted on exam - Hypoalbuminemia, received 25 g IV albumin - Ammonia level normal - US liver , no gallbladder disease, positive steatosis, splenomegaly - Hyperbilirubinemia, elevated indirect > direct - Viral chronic hepatitis panel; negative - Echocardiogram; pulmonary hypertension with right ventricular enlargement; cardio hepatic syndrome/hepatopulmonary syndrome also on differential (hepatojugular reflex noted on exam) - Treatment; alcohol cessation, correct anemia, cautious diuresis (IV Lasix 2 0 bid) Change to Lasix 20 mg BID PO Petechiae - Upper and lower lower extremity petechiae Noted, minimal trunk involvement - Due to thrombocytopenia/coagulopathy/lymphedema/right-sided heart failure - Rule out Vasculitis workup; ESR NL, DIOGENES/ANCA pending Lower extremity lymphedema - Multifactorial: - Echocardiogram; findings suggestive of pulmonary hypertension with clinical signs of righ t-sided heart failure - Secondary to liver disease/portal hypertension/hypoalbuminemia - Lower extremity ultrasound negative for deep vein thrombosis - IV Lasix at 20 mg BiD changed to PO - Venous stasis ulcers; malodorous; wound culture positive for group B strep wound care, IV Ancef day # 4,will transitioning to Kef lavell PO Clinically improving Renal insufficiency - Improving - Creatinine 1.6 --appears to be at baseline - Hematuria noted on UA - IV Lasix, monitor renal function Disposition: Code Status: Full Code Aylin Jiménez MD 07/23/2018 12:05 PM onversion Espino saction, Provider Unknown - 07/23/2018 8:35 AM PDTFormatting of this note might be differen t from the original. Case Management by Jah Rangel RN at 07/23/18834 Author: Jah Rangel RN Service: (none) Author Type: Registered Nurse Filed: 07/23/18 1132 Date of Service: 07/23/18834 Status: Addendum Full Service Supervisor: Jah Rangel RN (Registered Nurse) Related Notes: Original Note by Jah Rangel RN (Registered Nurse) filed at 07/23/18 37 8:35 AM Received signed prescription from Dr. David for bilateral lower extremity wound care. Faxe d with an H&P and face sheet to [facility] at [facility]. I will follow up and make his appt. 11:31 AM Patient set up for Saturday07/30/2018 at [address] at [facility] at 10:30am for wound eval uation and treat. Info on AVS. onver arjun Transaction, Provider Unknown - 07/23/2018 3:58 AM PDT Nurse Progress Note by Yessica Saxena RN at 07/23/18357 Author: Yessica Saxena RN Service: (none) Author Type: Registered Nurse Filed: 07/23/18 0610 Date of Service: 07/23/18357 Status: Signed Full Service Supervisor: Yessica Saxena RN (Registered Nurse) No acute changes from previous shift. VSS. Pt afebrile. Pt pleasant over night. Will contin ue to monitor. End of shift audit and 24H chart check completed Yessica Saxena RN onver arjun Transaction, Provider Unknown - 07/22/2018 7:00 PM PDT Progress Notes by Jonathon Estrella RN at 07/22/181899 Author: Jonathon Estrella RN Service: (none) Author Type: Registered Nurse Filed: 07/22/181900 Date of Service: 07/22/181899 Status: Signed Full Service Supervisor: Jonathon Estrella RN (Registered Nurse) Pt had a good day. No acute changes. Pt's H/H trending up. Will monitor, and possibly DC tomorrow or . JONATHON ESTRELLA RN onver arjun Transaction, Provider Unknown - 07/22/2018 2:23 PM PDT Case Management by Jah Rangel RN at 07/22/18 142 Author: Jah Rangel RN Service: (none) Author Type: Registered Nurse Filed: 07/22/18 1537 Date of Service: 07/22/181422 Status: Addendum Full Service Supervisor: Jah Rangel RN (Registered Nurse) Related Notes: Original Note by Jah Rangel RN (Registered Nurse) filed at 07/22/18 14 25 2:23 PM Attended afternoon rounds with Dr. Jiménez. Doug will likely discharge home tomorrow. H e will need wound care out patient. I called and talked to [facility] and they cannot see Doug until he has a PCP. I will set him up to see a physician at the [facility] [place]. They will need to write the orders for [facility]. 3:35 PM Discussed above with Doug, he said he is set up with a PCP at [facility]. Dr David is his PCP. I addded this to the face sheet. I called [facility] and Dr. David can sign a prescription and follow for them. I contacted Dr. David's office, I talked to Mireille leonardo. I faxed him a prescription and I will fax it to [facility] when it is signed and faxed back. Aylin Gotti MD - 07/22/2018 6:20 AM PDT Progress Notes by Aylin Jiménez MD at 07/22/18619 Author: Aylin Jiménez MD Service: Hospitalist Author Type: Physician Filed: 07/23/18605 Date of Service: 07/22/18619 Status: Signed Full Service Supervisor: Aylin Jiménez MD (Physician) Related Notes: Original Note by Aylin Jiménez MD (Physician) filed at 07/22/18 1242 [facility] Service: Hospitalist Progress Note Hospital Day: LOS: 5 days SUBJECTIVE Patient Summary: From [facility] admission H and P Dr. Corrales:"The patient is a 53 y.o. male with significant past medical hi story of EOH LIVER CIRRHOSIS, ANEMIA, COAGULOPATHY, HYPERBILIRUBINEMIA, transfers from [facility] for abnormal labs, worsening leg wounds . He was admitted in [facility] end of december 2017 for sepsis, pna, liver cirrhosis. He improved and discharged with instruction to stop etoh. Since then he has cut down but still drinking 3-4 beers / week. Has not seen any charlie specialist. He went to see the Er there for worsening leg edema, wounds. Then noted his Hb 5.4. So se nt here for further care. He denies any bleeding from anywhere. No fever, chills. He only take 81 mg asa once in a while. The patient states he is feeling well. He is able to ambulate without difficulty, remains afebrile. He does feel fatigued. He denies nausea and vomiting. He is able to take adequ ate by mouth. Scheduled Medications ceFAZolin 1 g Intravenous Q8H cyanocobalamin 1,000 mcg Intramuscular Q30 Days iron gluconate 125 mg Intravenous Q24H folic acid (FOLVITE) IVPB 1 mg Intravenous Daily furosemide 20 mg Intravenous See Admin Instructions furosemide 20 mg Intravenous BID-Diuretics midodrine 5 mg Oral BID pantoprazole 40 mg Intravenous QAM AC pneumococcal 23-valent vaccine 0.5 mL Intramuscular Once Immunization sodium chloride (PF) 10 mL Intravenous Q8H sodium chloride 10 mL Intravenous Q8H thiamine (VITAMIN B1) IVPB 100 mg Intravenous Q24H Continuous Infusions PRN Medications acetaminophen OR acetaminophen, HYDROcodone-acetaminophen OR HYDROcodone-acetaminop hen, LORazepam, ondansetron OR ondansetron, polyethylene glycol OBJECTIVE Vital Signs: BP 128/67 | Pulse 70 | Temp 98.3 F (36.8 C) (Oral) | Resp 16 | Ht 1.803 m (5' 11") | Wt 102.2 kg (225 lb 4.8 oz) | SpO2 100% | BMI 31.42 kg/m Patient Vitals for the past 24 hrs: BP Temp Temp src Pulse Resp SpO2 07/22/18 0523 128/67 - - - - - 07/22/18 0334 134/72 98.3 F (36.8 C) Oral 70 16 100 % 07/22/18 0000 136/62 98.4 F (36.9 C) Oral 76 16 95 % 07/21/182015 153/73 98.3 F (36.8 C) Oral 71 20 100 % 07/21/18 1852 137/70 - - - - - 07/21/18 1632 131/69 98.3 F (36.8 C) Oral 71 18 100 % 07/21/18 1615 153/73 98 F (36.7 C) Oral 77 18 98 % 07/21/18 1515 148/70 98.4 F (36.9 C) Oral 75 18 98 % 07/21/18 1418 120/64 98.3 F (36.8 C) Oral 75 18 98 % 07/21/18 1402 120/65 98.4 F (36.9 C) Oral 79 18 97 % 07/21/18 1207 132/64 98.4 F (36.9 C) Oral 72 18 97 % 07/21/18 0830 132/64 98.3 F (36.8 C) Oral 80 20 97 % Intake/Output Summary (Last 24 hours) at 07/22/18 0620 Last data filed at 07/22/18 0600 Gross per 24 hour Intake 3016 ml Output 1525 ml Net 1491 ml Physical Exam Constitutional: He is oriented to person, place, and time and well-developed, well-nourishe d, and in no distress. No distress. HENT: Head: Normocephalic and atraumatic. Eyes: No scleral icterus. Cardiovascular: Normal rate and regular rhythm. Pulmonary/Chest: Effort normal and breath sounds normal. Abdominal: Soft. Bowel sounds are normal. He exhibits distension. Musculoskeletal: He exhibits no edema. Neurological: He is alert and oriented to person, place, and time. Skin: Skin is warm and dry. He is not diaphoretic. Psychiatric: Mood and affect normal. Nursing note and vitals reviewed. DATA Recent Labs Lab 07/21/1851707/20/1855507/19/1853207/18/1844 WBC 5.62 6.06 6.82 -- 5.69 RBC 1.96* 2.15* 2.23* -- 1.65* HGB 6.9* 7.8* 8.0* < > 6.4* HCT 18.9* 20.6* 21.5* < > 17.6* MCV 96.8 95.8 96.5 -- 106.8* MCH 35.2* 36.4* 35.9* -- 38.7* MCHC 36.3* 38.0* 37.3* -- 36.3* RDW 90.1* 93.2* 95.8* -- 68.7* PLT 98* 94* 78* -- 81* MPV 7.1 7.4 7.7 -- 7.7 DIFFTYPE -- MANUAL MANUAL -- AUTOMATED < > = values in this interval not displayed. Recent Labs Lab 07/21/1851707/20/1855507/19/1833 NA 138 138 136 K 3.7 3.6 3.6 CL 103 102 100 CO2 25 23 21* BUN 19 22 24 CREATININE 1.6* 1.5* 1.6* PROT 7.0 7.3 7.1 BILITOT 10.7* 14.5* 13.6* ALT 15 17 17 AST 60* 61* 64* GLUF 107* 109* 114* No results for input(s): CKTOTAL, TROPONINI, TROPONINT, CKMBINDEX in the last 168 hours. Recent Labs Lab 09/29/18 0533 09/28/18 0644 PHOS 3.5 3.4 Recent Labs Lab 07/19/18 0533 07/18/18 0644 MG 1.7 1.7 Invalid input(s): ABG No results for input(s): CALCIUM in the last 168 hours. Xr Chest Pa And Lateral Result Date: 07/17/2018 1. Cardiomegaly and mild central pulmonary venous congestion. 2. Suspect small left pleur al effusion. Us Abdomen, Limited Result Date: 07/17/2018 1. No gallstones or findings of acute cholecystitis or biliary dilatation. 2. Echogenic niels er suggesting steatosis. 3. A right pleural effusion is seen. RADIA Electronically signed by Jonn Campa MD on Jul 17 2018 8:07PM Referring Provider Line: [phone] ID: [id number] Us Kidneys And Bladder Result Date: 07/18/2018 1. Normal renal ultrasound exam. 2. Post void bladder residual of 194 cc. 3. Splenomegaly. RADIA Electronically signed by Ignacio Kenyon MD on Jul 18 2018 1:32AM Referring Provide r Line: [phone] ID: [id number] Us Lower Extremity Venous Doppler Bilateral Result Date: 07/18/2018 1. No evidence of lower extremity deep vein thrombosis. Echo Cardiac Adult Complete Result Date: 07/18/2018 1. Overall left ventricular systolic function is normal with, an EF between 60 - 65 %. 2. P seudonormal LV diastolic filling pattern, consistent with elevated LA pressure and moderate dysfunction (Grade II). 3. Moderate tricuspid regurgitation present. 4. There is moderate to severe pulmonary hypertension. PROBLEM LIST Principal Problem: Alcoholic cirrhosis of liver with ascites (HCC) Active Problems: Abnormal blood coagulation profile ETOH abuse Hyperbilirubinemia Anemia Thrombocytopenia (HCC) Hyponatremia Multiple open wounds of lower leg CULLEN (acute kidney injury) (HCC) Pulmonary hypertension (moderate/severe) Splenomegaly ASSESSMENT & PLAN Macrocytic anemia - Hemoglobin 5.4, MCV 114, on presentation - Unfortunately iron panel not drawn prior to transfusion, post transfusion borderline iron deficiency and anemia noted - Begin IV ferric gluconate 125 IV for 3 days--last dose tomorrow, 07/23/18 - History of hepatic cirrhosis, denies bleeding/melanotic stools - Hyperbilirubinemia; total bilirubin 11, direct bilirubin 3.5 (indirect bilirubin approxim ate 8) - Concern for possible hemolysis, LDH 403. Elen test negative - Hematology consult (Dr. Quevedo); suspect low-grade hemolysis or ineffective kenneth thropoiesis, splenic sequestration from splenomegaly (on ultrasound noted to be 21.3 x 7.5 x 20.8 cm) - GI workup; upper & lower endoscopy; no signs of bleeding - Currently no active bleeding - Received total of 5 units packed RBC, currently hemoglobin 7.2/19.3 yesterday today 6.9, goal >7.0 - B12 and folic acid levels are normal, tierney IV to PO Hepatic cirrhosis - History of EtOH, drinks for over 30 years, currently down to 2-3 beer a day, last drink a pproximately 3 days ago - No signs of alcohol withdrawals, DC CIWA - Coagulopathy, INR 1.8; administer vitamin K subcu - Thrombocytopenia 81,000 -- 88,000 - Mild ascites noted on exam - Hypoalbuminemia, received 25 g IV albumin - Ammonia level normal - US liver , no gallbladder disease, positive steatosis, splenomegaly - Hyperbilirubinemia, elevated indirect > direct - Viral chronic hepatitis panel; negative - Echocardiogram; pulmonary hypertension with right ventricular enlargement; cardio hepatic syndrome/hepatopulmonary syndrome also on differential (hepatojugular reflex noted on exam) - Treatment; alcohol cessation, correct anemia, cautious diuresis (IV Lasix 2 0 bid) Change to Lasix 20 mg BID PO Petechiae - Upper and lower lower extremity petechiae Noted, minimal trunk involvement - Due to thrombocytopenia/coagulopathy/lymphedema/right-sided heart failure - Rule out Vasculitis workup; ESR NL, DIOGENES/ANCA pending Lower extremity lymphedema - Multifactorial: - Echocardiogram; findings suggestive of pulmonary hypertension with clinical signs of righ t-sided heart failure - Secondary to liver disease/portal hypertension/hypoalbuminemia - Lower extremity ultrasound negative for deep vein thrombosis - IV Lasix at 20 mg BiD changed to PO - Venous stasis ulcers; malodorous; wound culture positive for group B strep wound care, IV Ancef day # 4,will transitioning to Kef lavell PO Clinically improving Renal insufficiency - Improving - Creatinine 1.6 --appears to be at baseline - Hematuria noted on UA - IV Lasix, monitor renal function Disposition: Code Status: Full Code Aylin Jiménez MD 07/22/2018 6:20 AM onversion Espino saction, Provider Unknown - 07/22/2018 5:49 AM PDTFormatting of this note might be differen t from the original. Nurse Progress Note by Nagi Lee RN at 07/22/18548 Author: Nagi Lee RN Service: (none) Author Type: Registered Nurse Filed: 07/22/1850 Date of Service: 07/22/18548 Status: Signed Full Service Supervisor: Nagi Lee RN (Registered Nurse) Pt a/ox4, VSS t/o shift. Abx given per orders. Pt ambulating in room independently. Morning labs pending. No acute changes, chart review complete. Nagi Lee RN aher, Lee Salas MD - 07/21/2018 11:36 PM PDTFormatting of this note might be different from t he original. Progress Notes by Lee Foley IV, MD at 07/21/182335 Author: Lee Foley IV, MD Service: Gastroenterology Author Type: Physician Filed: 07/22/18 0025 Date of Service: 07/21/182335 Status: Signed Full Service Supervisor: Lee Foley IV, MD (Physician) [facility] Gastroenterology Service Inpatient Consult Follow Up Note Hospital Day: LOS: 4 days SUBJECTIVE Patient Summary: Profound macrocytic anemia, alcohol associated cirrhosis, jaundice, thrombocytopenia, splenomegaly, pulmonary hypertension Events: EGD and colonoscopy unrevealing for causes of chronic blood loss. He has requ ired additional transfusion but remains without any new onset of melena or other suggestion of acute bleeding. Workup by hematology did not feel pronounced hemolysis was a factor at le ast from an autoimmune standpoint. Patient currently tolerating regular diet without problem s. Insist that he will be abstinent from alcohol from now on. Scheduled Medications ceFAZolin 1 g Intravenous Q8H cyanocobalamin 1,000 mcg Intramuscular Q30 Days iron gluconate 125 mg Intravenous Q24H folic acid (FOLVITE) IVPB 1 mg Intravenous Daily furosemide 20 mg Intravenous See Admin Instructions furosemide 20 mg Intravenous BID-Diuretics midodrine 5 mg Oral BID pantoprazole 40 mg Intravenous QAM AC pneumococcal 23-valent vaccine 0.5 mL Intramuscular Once Immunization sodium chloride (PF) 10 mL Intravenous Q8H sodium chloride 10 mL Intravenous Q8H thiamine (VITAMIN B1) IVPB 100 mg Intravenous Q24H Continuous Infusions PRN Medications acetaminophen OR acetaminophen, HYDROcodone-acetaminophen OR HYDROcodone-acetaminop hen, LORazepam, ondansetron OR ondansetron, polyethylene glycol OBJECTIVE Vital Signs: BP 153/73 (BP Location: Left upper arm) | Pulse 71 | Temp 98.3 F (36.8 C) (Oral) | R azeb 20 | Ht 1.803 m (5' 11") | Wt 102.2 kg (225 lb 4.8 oz) | SpO2 100% | BMI 31.42 kg/m Vital signs reviewed. General appearance: Appears well though jaundiced but not in acute distress. Psychiatric: Appropriate affect, behavior and judgment appear normal. Neurological: Patient is alert and oriented. DATA Lab data: CBC: Lab Results Component Value Date WBC 5.62 07/21/2018 RBC 1.96 (L) 07/21/2018 HGB 6.9 (LL) 07/21/2018 HCT 18.9 (LL) 07/21/2018 MCV 96.8 07/21/2018 MCH 35.2 (H) 07/21/2018 MCHC 36.3 (H) 07/21/2018 RDW 90.1 (H) 07/21/2018 PLT 98 (L) 07/21/2018 MPV 7.1 07/21/2018 DIFFTYPE MANUAL 07/20/2018 CMP: Lab Results Component Value Date NA 138 07/21/2018 K 3.7 07/21/2018 CL 103 07/21/2018 CO2 25 07/21/2018 ANIONGAP 14 07/21/2018 GLUF 107 (H) 07/21/2018 BUN 19 07/21/2018 CREATININE 1.6 (H) 07/21/2018 BCR 12 07/21/2018 CA 7.8 (L) 07/21/2018 PROT 7.0 07/21/2018 ALB 2.6 (L) 07/21/2018 GLOB 4.4 07/21/2018 BILITOT 10.7 (H) 07/21/2018 ALP 96 07/21/2018 AST 60 (H) 07/21/2018 ALT 15 07/21/2018 EGFR 45 (L) 07/21/2018 PT/INR: Lab Results Component Value Date INR 1.7 07/21/2018 PTT: Lab Results Component Value Date APTT 42 (H) 07/17/2018 [APTT} IRON: Lab Results Component Value Date IRON 135 07/17/2018 TIBC: Lab Results Component Value Date IRON 135 07/17/2018 TIBC 177 (L) 07/17/2018 LABIRON 76 (H) 07/17/2018 UIBC 42 07/17/2018 FERRITIN: Lab Results Component Value Date FERRITIN 1,016 (H) 07/17/2018 Lipase: Lab Results Component Value Date LIPASE 395 (H) 07/17/2018 Diagnostic imaging: No new studies PROBLEM LIST Principal Problem: Alcoholic cirrhosis of liver with ascites (HCC) Active Problems: Abnormal blood coagulation profile ETOH abuse Hyperbilirubinemia Anemia Thrombocytopenia (HCC) Hyponatremia Multiple open wounds of lower leg CULLEN (acute kidney injury) (HCC) Pulmonary hypertension (moderate/severe) Splenomegaly ASSESSMENT & PLAN Profound macrocytic anemia Alcohol associated cirrhosis Thrombocytopenia Coagulopathy with elevated INR Ongoing alcohol abuse Hemoglobin trended down again and required additional transfusion. No evidence to suggest G I bleeding. May need to run this by hematology service. Large spleen clearly playing a facto r and likely at least partially related to portal hypertension. Need to remain vigilant as t o potential other etiologies for the anemia. Recommendations 1. Continue encouraging nutrition. 2. Strongly counseled on need for alcohol abstinence forever and should be offered resource s to support this. 3. If hemoglobin continues to decline would run this by hematology service as to whether fu rther workup needed even consideration of bone marrow aspirate. Stephy Foley IV, M.D. [facility] Gastroenterology 07/21/2018 This note was dictated using [employer] voice recognition software. Document was reviewed at ti me of dictation but [id number] errors may be present. Please call with any questions or c larifications. onversion Trans action, Provider Unknown - 07/21/2018 7:00 PM PDT Nurse Progress Note by Dayna Santillan RN at 07/21/181899 Author: Dayna Santillan RN Service: (none) Author Type: Registered Nurse Filed: 07/21/182000 Date of Service: 07/21/181899 Status: Signed Full Service Supervisor: Dayna Santillan RN (Registered Nurse) Pt A/O x4. Afebrile. VSS. Pt denies SOB, nausea and vomiting. Denies pain. Transfused 1 uni t of PRBC. No acute changes since previous assessment. Will continue to monitor. Dayna Santillan RN Day Shift: End of shift review complete. onver arjun Transaction, Provider Unknown - 07/21/2018 3:36 PM PDT Progress Notes by Michelle Melendrez RN at 07/21/18 1536 Author: Michelle Melendrez RN Service: Wound/Ostomy Care Author Type: Registered Nurse Filed: 07/21/18 1542 Date of Service: 07/21/18 1536 Status: Signed Full Service Supervisor: Michelle Melendrez RN (Registered Nurse) Floor RN just completed dressing changes, patient would like to defer dressing change from sawmill hand since it was just done. Will put him on the schedule for Saturday. RN state s wound improving in appearance. Patient informed he will need outpatient wound care at [facility] of discharge. Stated he probably wouldn't go. Refuses compression stockings. Michelle Melendrez RN, CWON 07/21/2018 3:41 PM Jessee Barreto MD - 07/21/2018 10:41 AM PDT Progress Notes by Jessee Tam MD at 07/21/18 1041 Author: Jessee Tam MD Service: Hospitalist Author Type: Physician Filed: 07/22/18 1154 Date of Service: 07/21/18 1041 Status: Addendum Full Service Supervisor: Jessee Tam MD (Physician) Related Notes: Original Note by Jessee Tam MD (Physician) filed at 07/21/18 1700 [facility] Service: Hospitalist Progress Note Hospital Day: LOS: 4 days Post-Op Day: * No surgery found * SUBJECTIVE Patient Summary: admission H and P Dr. Corrales:"The patient is a 53 y.o. male with sig nificant past medical history of EOH LIVER CIRRHOSIS, ANEMIA, COAGULOPATHY, HYPERBILIRUBINE PRASHANTH, transfers from [facility] for abnormal labs, worsening leg wounds . He was admitted in [facility] end of december 2017 for sepsis, pna, liver cirrhosis. He improved and discharged with instruction to stop etoh. Since then he has cut down but still drinking 3-4 beers / we ek. Has not seen any liver specialist. He went to see the Er there for worsening leg edema, wounds. Then noted his Hb 5.4. So se nt here for further care. He denies any bleeding from anywhere. No fever, chills. He only take 81 mg asa once in a while. Events Overnight: A 53-year-old male with a history of alcohol-induced liver cirrhosis. (He has been drinkin g for almost 30 years). He was recently admitted at [place] for multilobar pneumonia back in December. At that time, the patient was noted to have a macrocytic anemia with an MCV of 1 03, hemoglobin ranging between 10 and 11. He also was noted to have coagulopathy with an IN R of 2.0. The patient was transferred to our facility from [place] emergency department on 07/17. He presented with a 2-week history of worsening lower extremity edema, open sores, also ericka chial rash noted primarily on the upper and lower extremities. He was seen in the emergency department. He had a hemoglobin of 5.4, MCV of 106, INR 1.8, total bilirubin of 11.8, also noted to have +2 pitting edema and diffuse petechiae on the upper and lower extremities. He was transferred, received 5 units of packed red blood cells. No active bleeding was not ed. Stools were negative for blood. Subsequently a workup for macrocytic anemia was started. It seems that since December hemoglo bin from 10 drops to 5, primarily macrocytosis. Unfortunately an iron panel was not drawn p rior to blood transfusions. Also noted was primarily hyperbilirubinemia is indirect approxi mately 8, the direct bilirubin 3.5, total bilirubin 11. This led to an LDH which was elevat ed, though a Elen test was negative. The patient does have a splenomegaly on exam. He quintana s undergone an upper and lower endoscopy with no signs of bleeding. Hematology consultation was obtained and deemed unlikely thrombocytic microangiopathy/TTP. It is felt that the ane prashanth and thrombocytopenia may be multifactorial, possibly related to bone marrow suppression from chronic alcoholism, possibly B12 and folic acid deficiencies, though these levels were checked and are normal. Also in the differential diagnosis is possible, low grade hemolysis /ineffective erythropoiesis and splenic sequestration. Of note, he does have a moderately e nlarged spleen measuring approximately 21 cm. The patient did undergo a transthoracic echocardiogram which indicates pulmonary hypertensi on, moderate to severe with right ventricular enlargement. Findings are concerning for righ t-sided heart strain as noted by positive JVD, hepatojugular reflex and lower extremity lymp hedema. Pulmonary hypertension may be due to hepatopulmonary syndrome, though the patient's oxygen saturations are stable on room air. Also, he may have cardiohepatic syndrome leadin g to liver congestion and lower extremity edema. He is being treated with diuretics cautiou sly and since his admission, lower extremity edema has gradually been improving. At this po int, he does not require any oxygen. I did discuss the case with Dr. Adhikari informally over the phone, and his suspicion is that the patient may have an element of hepatopulmonary synd susu explaining his pulmonary hypertension. Recommendation is to keep hemoglobin levels abo ve 7 and, if required, oxygen. The patient also noted to have diffuse petechiae on the upper and lower extremities. This was deemed possibly due to underlying thrombocytopenia/coagulopathy and lymphedema with incr eased hydrostatic pressures for the right-sided heart failure. Vasculitis workup has been s tarted, though patient's inflammatory markers (ESR/C-reactive protein) are all within normal limits. DIOGENES/ANCA are pending at this time. The patient did present with acute on chronic renal insufficiency. It seems the patient's baseline creatinines range from 0.8. He did present with a creatinine of 1.8. He has been receiving IV Lasix and the renal functions have been stable at 1.6. The patient will continue to receive light diuresis, goal is to keep hemoglobin above 7. The patient will continue to be monitored for anemia. Appreciate help from hematology/Dr. Quevedo. Appreciate help from GI, Dr. Foley. Currently patient seen at bedside, indicates feeling generally well, no pruritus, no nausea no emesis, no chest pain, no abdominal pain, currently watching television and eating. Petechial Rash on extremities seems to be clearing up Scheduled Medications ceFAZolin 1 g Intravenous Q8H cyanocobalamin 1,000 mcg Intramuscular Q30 Days folic acid (FOLVITE) IVPB 1 mg Intravenous Daily furosemide 20 mg Intravenous See Admin Instructions furosemide 20 mg Intravenous BID-Diuretics midodrine 5 mg Oral BID pantoprazole 40 mg Intravenous QAM AC pneumococcal 23-valent vaccine 0.5 mL Intramuscular Once Immunization sodium chloride (PF) 10 mL Intravenous Q8H sodium chloride 10 mL Intravenous Q8H thiamine (VITAMIN B1) IVPB 100 mg Intravenous Q24H Continuous Infusions PRN Medications acetaminophen OR acetaminophen, HYDROcodone-acetaminophen OR HYDROcodone-acetaminop hen, LORazepam, ondansetron OR ondansetron, polyethylene glycol OBJECTIVE Vital Signs: BP 132/64 (BP Location: Left upper arm) | Pulse 80 | Temp 98.3 F (36.8 C) (Oral) | R azeb 20 | Ht 1.803 m (5' 11") | Wt 102.2 kg (225 lb 4.8 oz) | SpO2 97% | BMI 31.42 kg/m Temp: [98 F (36.7 C)-98.6 F (37 C)] 98.3 F (36.8 C) (07/21 830) BP: (131-154)/(64-88) 132/64 (07/21 830) Heart Rate: [75-89] 80 (07/21 830) Resp: [18-20] 20 (07/21 830) SpO2: [97 %-100 %] 97 % (07/21 830) Weight: [102.2 kg (225 lb 4.8 oz)] 102.2 kg (225 lb 4.8 oz) (07/21 030) FiO2 : [100 %] 100 % (07/20 1246) Physical Exam Constitutional: He is oriented to person, place, and time. He appears well-developed and we ll-nourished. Awake alert no acute distress Icteric-appearing HENT: Mouth/Throat: No oropharyngeal exudate. Cardiovascular: Normal rate. Murmur heard. Pulmonary/Chest: Effort normal and breath sounds normal. Abdomina/Gl: Soft. Abdomen slightly distended, no obvious bulging flanks Hepatojugular reflux noted on exam Musculoskeletal: He exhibits edema. +2 pitting edema bilateral ankles, a venous stasis ulcers foul-smelling, discharge noted, n o obvious signs of cellulitis Neurological: He is alert and oriented to person, place, and time. No cranial nerve deficit . Skin: Skin is warm. Petechia noted primarily lower extremities and thighs Petechiae also noted upper extremities and abdominal area Psychiatric: He has a normal mood and affect. His behavior is normal. Nursing note and vitals reviewed. DATA CBC: Lab Results Component Value Date WBC 5.62 07/21/2018 RBC 1.96 (L) 07/21/2018 HGB 6.9 (LL) 07/21/2018 HCT 18.9 (LL) 07/21/2018 MCV 96.8 07/21/2018 MCH 35.2 (H) 07/21/2018 MCHC 36.3 (H) 07/21/2018 RDW 90.1 (H) 07/21/2018 PLT 98 (L) 07/21/2018 MPV 7.1 07/21/2018 DIFFTYPE MANUAL 07/20/2018 BMP: Lab Results Component Value Date NA 138 07/21/2018 K 3.7 07/21/2018 CL 103 07/21/2018 CO2 25 07/21/2018 ANIONGAP 14 07/21/2018 GLUF 107 (H) 07/21/2018 BUN 19 07/21/2018 CREATININE 1.6 (H) 07/21/2018 BCR 12 07/21/2018 CA 7.8 (L) 07/21/2018 EGFR 45 (L) 07/21/2018 Hepatic Function Panel: Lab Results Component Value Date PROT 7.0 07/21/2018 ALB 2.6 (L) 07/21/2018 BILITOT 10.7 (H) 07/21/2018 BILIDIR 3.5 (H) 07/18/2018 ALP 96 07/21/2018 AST 60 (H) 07/21/2018 ALT 15 07/21/2018 PT/INR: Lab Results Component Value Date INR 1.7 07/21/2018 Last 3 Troponin: No results found for: TROPONINI CPK: No results found for: CKTOTAL CKMB: No results found for: CKMB PROBLEM LIST Principal Problem: Alcoholic cirrhosis of liver with ascites (HCC) Active Problems: Abnormal blood coagulation profile ETOH abuse Hyperbilirubinemia Anemia Thrombocytopenia (HCC) Hyponatremia Multiple open wounds of lower leg CULLEN (acute kidney injury) (HCC) Pulmonary hypertension (moderate/severe) ASSESSMENT & PLAN #1. Macrocytic anemia - Hemoglobin 5.4, MCV 114, on presentation - Unfortunately iron panel not drawn prior to transfusion, post transfusion borderline iron deficiency and anemia noted - Begin IV ferric gluconate 125 IV for 3 days - History of hepatic cirrhosis, denies bleeding/melanotic stools - Hyperbilirubinemia; total bilirubin 11, direct bilirubin 3.5 (indirect bilirubin approxim ate 8) - Concern for possible hemolysis, LDH 403. Elen test negative - Hematology consult (Dr. Quevedo); suspect low-grade hemolysis or ineffective kenneth thropoiesis, splenic sequestration from splenomegaly (on ultrasound noted to be 21.3 x 7.5 x 20.8 cm) - GI workup; upper & lower endoscopy; no signs of bleeding - Currently no active bleeding - Received total of 5 units packed RBC, currently hemoglobin 7.8 yesterday today 6.9, goal >7.0 - We will transfuse 1 unit goal hemoglobin greater than 9.0 - B12 and folic acid levels are normal #2. Hepatic cirrhosis - History of EtOH, drinks for over 30 years, currently down to 2-3 beer a day, last drink a pproximately 3 days ago - No signs of alcohol withdrawals, DC CIWA - Coagulopathy, INR 1.8; administer vitamin K subcu - Thrombocytopenia 81,000 - Mild ascites noted on exam - Hypoalbuminemia, received 25 g IV albumin - Ammonia level normal - US liver , no gallbladder disease, positive steatosis, splenomegaly - Hyperbilirubinemia, elevated indirect > direct - Viral chronic hepatitis panel; negative - Echocardiogram; pulmonary hypertension with right ventricular enlargement; cardio hepatic syndrome/hepatopulmonary syndrome also on differential (hepatojugular reflex noted on exam) - Treatment; alcohol cessation, correct anemia, cautious diuresis (IV Lasix 2 0 bid) #3. Petechiae - Upper and lower lower extremity petechiae Noted, minimal trunk involvement - Due to thrombocytopenia/coagulopathy/lymphedema/right-sided heart failure - Rule out Vasculitis workup; ESR NL, DIOGENES/ANCA pending #4. Lower extremity lymphedema - Multifactorial: - Echocardiogram; findings suggestive of pulmonary hypertension with clinical signs of righ t-sided heart failure - Secondary to liver disease/portal hypertension/hypoalbuminemia - Lower extremity ultrasound negative for deep vein thrombosis - IV Lasix at 20 mg BiD - Venous stasis ulcers; malodorous; wound culture positive for group B strep wound care, IV Ancef day # 4, could consider transitio sanjeev to Keflex within the next 24 hours Clinically improving #5. Renal insufficiency - Improving - Creatinine 1.6 , - Hepatorenal syndrome? - Hematuria noted on UA - IV Lasix, monitor renal function Disposition: Code Status: Full Code Jessee Tam MD 07/21/2018 onversion Transact ion, Provider Unknown - 07/20/2018 5:24 PM PDTFormatting of this note might be different fr om the original. Nurse Progress Note by Elliott Lee RN at 07/20/181723 Author: Elliott Lee RN Service: (none) Author Type: Registered Nurse Filed: 07/20/181725 Date of Service: 07/20/181723 Status: Signed Full Service Supervisor: Elliott Lee RN (Registered Nurse) VSS, afebrile, Pt resting comfortably in bed, CIWA score 0 all shift. EGD and colonoscopy t bronwyn, pt advanced to General diet post procedures. End of shift Review complete. No other ac teller changes from am assessment. Will continue to monitor.ELLIOTT LEE RN Efraín Vazquez MD - 07/20/2018 10:58 AM PDTFormatting of this note might be different from the or iginal. Progress Notes by Efraín Quevedo MD at 07/20/18 7757 Author: Efraín Quevedo MD Service: Hematology/Oncology Author Type: Physician Filed: 07/20/18 7657 Date of Service: 07/20/18 9356 Status: Signed Full Service Supervisor: Efraín Quevedo MD (Physician) [facility] Service: Hematology and Oncology Progress Note Hospital Day: LOS: 3 days Patient Summary: The patient is 53 y.o. male with a history of alcoholic liver cirrhosis w ho was hospitalized at [facility] in [place] in December 2017 for pneumonia. At that time, the patient was noted to have hyperbilirubinemia with a total bilirubin of 7.7, m ild anemia with hemoglobin of 11.4 microcytosis with an MCV of 103.1 and slightly low platel ets at 145. CT scan showed bilateral infiltrates consistent with pneumonia. The patient re ceived transfusions. Laboratory work on January 19, 2018 after receiving his transfusions show ed an iron saturation of 92.1, ferritin of 1635, B12 of 135 and folic acid of 3.24. Hemochr omatosis testing was negative The patient presented to [facility] on July 17, 2018 after he was directed by his PCP to do so when he was found to have severe anemia. On presentation at [facility], he was found to have a hemoglobin of 5.4, hematocrit of 14.6, elevated MCV of 11 4 and elevated MCH of 41.9. Total WBC was normal and platelets were slightly low at 93. CM P revealed marked hyperbilirubinemia with a total bilirubin of 10.6 and mild abnormalities o f alkaline phosphatase and AST. Creatinine was elevated at 2.1 and GFR was 33. Abdominal u ltrasound showed an echogenic liver suggesting steatosis. There was no evidence of acute ch olecystitis, biliary dilatation or gallstones. LDH on July 18, 2018 was slightly elevated at 403. Hepatic function panel revealed to hillary bilirubin of 11.9, indirect bilirubin 3.5. CBC showed a hemoglobin of 6.4 and platelets of 81. Elen test was negative. KUB ultrasound on July 18, 2018 revealed splenomegal y. 2-D echo revealed moderate tricuspid regurgitation and moderate to severe pulmonary hype rtension. Bilateral lower extremity Dopplers were negative for deep vein thrombosis. The patient has received a total of 5 units of RBCs. SUBJECTIVE Events Overnight: The patient feels well today with no new complaints. OBJECTIVE Scheduled Medications ceFAZolin 1 g Intravenous Q8H cyanocobalamin 1,000 mcg Intramuscular Q30 Days folic acid (FOLVITE) IVPB 1 mg Intravenous Daily furosemide 20 mg Intravenous See Admin Instructions furosemide 20 mg Intravenous BID-Diuretics midodrine 5 mg Oral BID pantoprazole 40 mg Intravenous QAM AC phytonadione 5 mg Subcutaneous Daily pneumococcal 23-valent vaccine 0.5 mL Intramuscular Once Immunization sodium chloride (PF) 10 mL Intravenous Q8H sodium chloride 10 mL Intravenous Q8H thiamine (VITAMIN B1) IVPB 100 mg Intravenous Q24H Continuous Infusions PRN Medications acetaminophen OR acetaminophen, HYDROcodone-acetaminophen OR HYDROcodone-acetaminop hen, LORazepam, ondansetron OR ondansetron, polyethylene glycol Physical Exam Vital Signs: BP 123/58 (BP Location: Left upper arm) | Pulse 74 | Temp 98.4 F (36.9 C ) (Oral) | Resp 18 | Ht 1.803 m (5' 11") | Wt 100.9 kg (222 lb 8 oz) | SpO2 98% | BMI 3 1.03 kg/m Constitutional: He is oriented to person, place, and time. He appears well-nourished. No di stress. HENT: Mouth/Throat: Oropharynx is clear and moist. No oropharyngeal exudate. Eyes: Scleral icterus is present. Cardiovascular: Normal rate and regular rhythm. Murmur heard. Pulmonary/Chest: Effort normal and breath sounds normal. No respiratory distress. He has no wheezes. He has no rales. He exhibits no tenderness. Abdomina/Gl: Soft. He exhibits no distension and no mass. There is no tenderness. There is no rebound and no guarding. Musculoskeletal: He exhibits edema. He exhibits no tenderness. Lymphadenopathy: He has no cervical adenopathy. Neurological: He is alert and oriented to person, place, and time. Skin: Skin is warm and dry. Rash and jaundice noted. He is not diaphoretic. The patient has a generalized purpuric rash mostly of the upper and lower extremities Psychiatric: He has a normal mood and affect. His behavior is normal. Judgment and thought content normal. Lab Data Recent Labs Lab 07/20/18 0556 07/19/18 0533 07/18/18 1836 07/18/18 0925 07/18/18 0644 07/17/18 1627 WBC 6.06 6.82 -- -- 5.69 6.17 RBC 2.15* 2.23* -- -- 1.65* 1.28* HGB 7.8* 8.0* 7.9* 6.4* 6.4* 5.4* HCT 20.6* 21.5* 22.3* 17.4* 17.6* 14.6* MCV 95.8 96.5 -- -- 106.8* 114.0* MCH 36.4* 35.9* -- -- 38.7* 41.9* MCHC 38.0* 37.3* -- -- 36.3* 36.7* RDW 93.2* 95.8* -- -- 68.7* 54.3* PLT 94* 78* -- -- 81* 93* MPV 7.4 7.7 -- -- 7.7 7.9 NEUTROABS -- -- -- -- 3.65 4.11 LYMPHSABS -- -- -- -- 1.25 1.27 MONOSABS -- -- -- -- 0.47 0.60 BASOSABS -- -- -- -- 0.02 0.03 EOSABS -- -- -- -- 0.31 0.36 MORPH 3+ 2+ -- -- 2+ 1+ Recent Labs Lab 07/20/18 0556 07/19/18 0533 07/18/18 0930 07/18/18 0644 07/17/18 1627 NA 138 136 -- 135 133* K 3.6 3.6 -- 3.6 3.5 CL 102 100 -- 100 98* CO2 23 21* -- 25 22* ANIONGAP 17 19 -- 14 16 GLUF 109* 114* -- 91 154* BUN 22 24 -- 32* 34* CREATININE 1.5* 1.6* -- 1.8* 2.1* BCR 15 15 -- 18 16 CA 8.1* 8.0* -- 7.7* 7.8* ALB 2.8* 2.6* 3.0* 2.6* 2.5* GLOB 4.5 4.5 -- 4.8 5.6* AG 0.6* 0.6* -- 0.6* 0.4* PROT 7.3 7.1 7.7 7.4 8.1 BILITOT 14.5* 13.6* 11.9* 11.8* 10.6* ALT 17 17 18 19 21 AST 61* 64* 64* 63* 73* EGFR 49* 45* -- 40* 33* PHOS -- 3.5 -- 3.4 -- MG -- 1.7 -- 1.7 -- Medical Imaging Xr Chest Pa And Lateral Result Date: 07/17/2018 DOUG DURAN 1965 53 years Male XR CHEST 2 VIEW FRONTAL AND LATERAL 07/17/2018 9:12 P M INDICATION: Shortness of breath COMPARISON: None. TECHNIQUE: Two view chest, PA and latera l views FINDINGS: Mild to moderate cardiac enlargement. Mild prominence central pulmonary va scular markings. Mild blunting of the left costophrenic angle on the lateral film. Slight as ymmetric lucent area at the left costophrenic angle on the frontal film, of uncertain signif icance. 1. Cardiomegaly and mild central pulmonary venous congestion. 2. Suspect small left pleur al effusion. Us Abdomen, Limited Result Date: 07/17/2018 EXAM: ABDOMEN ULTRASOUND LIMITED, RUQ EXAM DATE: 07/17/2018 07:36 PM. CLINICAL HISTORY: Abdo hua swelling. COMPARISON: None. TECHNIQUE: Real-time scanning was performed with static i mages obtained. FINDINGS: Liver: The liver parenchyma appears echogenic. No focal liver lesi on. The main portal vein measures 1.7 cm in diameter. 19.1 cm. Main portal vein flow: Hepato petal. Gallbladder: Normal. No stones, wall thickening, or sonographic [place]'s sign. Biliar y System: CBD measures 2.4 mm. No intrahepatic or extrahepatic ductal dilatation. Other: The re is a right pleural effusion incidentally seen 1. No gallstones or findings of acute cholecystitis or biliary dilatation. 2. Echogenic niels er suggesting steatosis. 3. A right pleural effusion is seen. RADIA Electronically signed Beena Campa MD on Jul 17 2018 8:07PM Referring Provider Line: [id number] ID : [id number] Us Kidneys And Bladder Result Date: 07/18/2018 EXAM: RENAL ULTRASOUND EXAM DATE: 07/18/2018 12:03 AM. CLINICAL HISTORY: Renal kidneys only, for cullen. COMPARISON: None. TECHNIQUE: Real-time scanning was performed with static images o btained. FINDINGS: Right Kidney: 12.4 x 9.0 x 6.5 cm. Normal echotexture with no stones, con tour-deforming masses, or hydronephrosis. Left Kidney: 12.9 x 5.3 x 6.2 cm. Normal echotextu re with no stones, contour-deforming masses, or hydronephrosis. Bladder: Bilateral jets seen . The prevoid bladder volume was 758 cc. The postvoid bladder volume was 194 cc. Other: The spleen measures 21.3 x 7.5 x 20.8 cm. 1. Normal renal ultrasound exam. 2. Post void bladder residual of 194 cc. 3. Splenomegaly. RADIA Electronically signed by Ignacio Kenyon MD on Jul 18 2018 1:32AM Referring Provid er Line: [phone] ID: [id number] Us Lower Extremity Venous Doppler Bilateral Result Date: 07/18/2018 DOUG DURAN US LOWER EXTREMITY VENOUS DOPPLER BILAT 07/18/2018 12:28 PM HISTORY: 53 years . Male. Bilateral leg swelling for couple of weeks. Rule out DVT. TECHNIQUE: Bilateral low er extremity venous Doppler performed with color Doppler and spectral Doppler waveform tapan sis. Duplex Doppler analysis. COMPARISON: None. FINDINGS: Normal compressibility, augmentati on of flow, and Doppler flow evident within the deep venous system. No evidence of deep veno us thrombosis. 1. No evidence of lower extremity deep vein thrombosis. Echo Cardiac Adult Complete Result Date: 07/18/2018 Patient Name: DOUG DURAN Date of : 1965 Performing Phys ician: Kaushal Jhaveri MD, FACC, FACP, FASNC INDICATIONS Murmur CONCLUSIONS 1. Overall left ventri cular systolic function is normal with, an EF between 60 - 65 %. 2. Pseudonormal LV diastoli c filling pattern, consistent with elevated LA pressure and moderate dysfunction (Grade II). 3. Moderate tricuspid regurgitation present. 4. There is moderate to severe pulmonary hyper tension. FINDINGS -------- Study: A 2-dimensional transthoracic echocardiogram with m-mode, spectral and color flow Doppler was perfomed. Left Ventricle: Overall left ventricular systo lic function is normal with, an EF between 60 - 65 %. Left Ventricle: The left ventricle is moderately dilated. Left Ventricle: There is mild concentric left ventricular hypertrophy. L eft Ventricle: Pseudonormal LV diastolic filling pattern, consistent with elevated LA pressu re and moderate dysfunction (Grade II). Right Ventricle: The right ventricle is moderately e nlarged measuring between 3.8 - 4.1 cm. Left Atrium: The left atrium is markedly dilated. Ri ght Atrium: The right atrium is moderately enlarged. Aortic Valve: There is mild aortic valv e sclerosis without stenosis. Aortic Valve: There is no evidence of aortic regurgitation. Mi tral Valve: The mitral valve is normal. Mitral Valve: Mild mitral regurgitation is present. Tricuspid Valve: The tricuspid valve appears structurally normal. Tricuspid Valve: Moderate tricuspid regurgitation present. Tricuspid Valve: There is moderate to severe pulmonary hype rtension. Tricuspid Valve: The right ventricular systolic pressure (pulmonary artery systoli c pressure), as measured by Doppler, is 62.38mmHg. Pulmonic Valve: The pulmonic valve is nor mal. Pericardium: There is no pericardial effusion. IVC/Hepatic Veins: The IVC is dilated (> 2.5cm) and collapses <50% with sniff, consistent with central venous pressures of 15-20mmHg. Aorta: The aortic root, ascending aorta and aortic arch are normal. MEASUREMENTS --- RA Area: 34.29 cm2 Ao asc: 3.51 cm Ao sinus: 3.24 cm IVC: 3.37 cm LA Diam: 5.1 4 cm EDV(Teich): 202.90 ml IVSd: 1.21 cm LVIDd: 6.32 cm LVPWd: 1.24 cm LVOT Diam: 2.15 cm %FS: 35.47 % EF(Teich): 63.83 % ESV(Teich): 73.37 ml IVSs: 1.56 cm LVIDs: 4.08 cm LVPWs: 1.85 cm SV(Teich): 129.53 ml RVIDd: 4.05 cm LAESV(A-L): 163.34 ml LAE SV Index (A-L): 73.91 ml/m2 LAAs A2C: 39.81 cm2 LAESV A-L A2C: 182.72 ml LALs A2C: 7 .36 cm LAAs A4C: 35.59 cm2 LAESV A-L A4C: 145.01 ml LALs A4C: 7.41 cm TAPSE: 2.93 cm HR: 74.01 BPM AV maxP.44 mmHg AV meanP.05 mmHg AV Vmax: 2.14 m/s AV Vmean : 1.49 m/s AV VTI: 47.25 cm BOOM Vmax: 2.41 cm2 BOOM (VTI): 2.69 cm2 AVAI Vmax: 0.00 cm2/m2 AVAI (VTI): 0.00 cm2/m2 LVCI Dopp: 4.23 l/minm2 LVCO Dopp: 9.36 l/min HR: 73 .49 BPM LVOT maxP.16 mmHg LVOT meanP.88 mmHg LVSI Dopp: 57.66 ml/m2 LVSV Dopp: 127.43 ml LVOT Vmax: 1.42 m/s LVOT Vmean: 1.05 m/s LVOT VTI: 35.08 cm MV A Mango: 1 .07 m/s MV DecT: 280.31 ms MV E Mango: 1.56 m/s MV E/A Ratio: 1.45 MV PHT: 78.10 ms MV A By PHT: 2.81 cm2 MV A Dur: 179.82 ms Septal e': 0.08 m/s Septal E/e': 18.57 Latera l e': 0.08 m/s Lateral E/e': 18.00 HR: 152.31 BPM PV maxP.98 mmHg PV meanP .73 mmHg PV Vmax: 1.11 m/s PV Vmean: 0.77 m/s PV VTI: 25.35 cm PV maxP.07 mmHg PV Vmax: 1.73 m/s RAP: 15 mmHg RV S': 0.19 m/s RVSP: 62.37 mmHg TR maxP.37 mm Hg TR Vmax: 3.44 m/s Document Advisor: Authenticated by: Kaushal Jhaveri MD, FACC, FACP, FASNC Report Date/Time: -- [id number] 1. Overall left ventricular systolic function is normal with, an EF between 60 - 65 %. 2. P seudonormal LV diastolic filling pattern, consistent with elevated LA pressure and moderate dysfunction (Grade II). 3. Moderate tricuspid regurgitation present. 4. There is moderate to severe pulmonary hypertension. PROBLEM LIST Principal Problem: Alcoholic cirrhosis of liver with ascites (HCC) Active Problems: Abnormal blood coagulation profile ETOH abuse Hyperbilirubinemia Anemia Thrombocytopenia (HCC) Hyponatremia Multiple open wounds of lower leg CULLEN (acute kidney injury) (HCC) Pulmonary hypertension (moderate/severe) ASSESSMENT & PLAN Macrocytic anemia and thrombocytopenia This process has been going on since December 2017 and therefore is unlikely to be an aggressi ve process such as a thrombotic microangiopathy/TTP. His anemia and thrombocytopenia is multifactorial, perhaps related to bone marrow suppressi on from chronic alcoholism, potential vitamin B12 and folic acid deficiency, and perhaps spl enic sequestration from splenomegaly resulting from liver cirrhosis. Elen' test is negative ruling out autoimmune hemolysis. My personal review of the patient's peripheral smear shows occasional fragmented red blood cells. Again, I doubt this is TTP. Upper endoscopy and colonoscopy are planned. Indirect bilirubinemia Liver disease can also result in both direct and indirect bilirubinemia. I am most suspici ous that this is the cause for his bilirubinemia rather than hemolysis. It is still possible that the patient may have a low-grade hemolysis. he does not have au toimmune hemolysis, however. B12 and folic acid are normal Rash May be related to thrombocytopenia versus vasculitis. The vasculitis workup has been order ed by Dr. Tam Code Status: Full Code Greater than 35 minutes were spent examining the patient, review of medical records, counse ling, coordination of care, and CPOE. More than 50% of that time was spent in direct contact with the patient. EFRAÍN QUEVEDO MD, FACP 07/20/2018 10:58 AM Portions of this chart may have been created with voice recognition software. Occasional wr manju-word or "sound-alike" substitutions may have occurred, even after review, due to the inh erent limitations of voice recognition software. Please read the chart carefully and recogni ze, using context, where these substitutions have occurred. Personal communication is reques jeannette for any clarifications. Jessee Barreto MD - 07/20/2018 10:53 AM PDT Progress Notes by Jessee Tam MD at 07/20/18 1057 Author: Jessee Tam MD Service: Hospitalist Author Type: Physician Filed: 07/20/18 8641 Date of Service: 07/20/181052 Status: Signed Full Service Supervisor: Jessee Tam MD (Physician) [facility] Service: Hospitalist Progress Note Hospital Day: LOS: 3 days Post-Op Day: * No surgery found * SUBJECTIVE Patient Summary: admission H and P Dr. Corrales:"The patient is a 53 y.o. male with sig nificant past medical history of EOH LIVER CIRRHOSIS, ANEMIA, COAGULOPATHY, HYPERBILIRUBINE PRASHANTH, transfers from [facility] for abnormal labs, worsening leg wounds . He was admitted in [facility] end of december 2017 for sepsis, pna, liver cirrhosis. He improved and discharged with instruction to stop etoh. Since then he has cut down but still drinking 3-4 beers / we ek. Has not seen any liver specialist. He went to see the Er there for worsening leg edema, wounds. Then noted his Hb 5.4. So se nt here for further care. He denies any bleeding from anywhere. No fever, chills. He only take 81 mg asa once in a while. Events Overnight: 53-year-old male history of alcohol-induced liver cirrhosis ([place] for > 30 years), no prior records available at our facility. Patient had developed low er extremity swelling over the last 2 weeks with open sores, petechia rash noted on upper an d lower extremities, he was seen at his primary care physician's office today in [place], blood work indicated anemia as result he was referred to our emergency department. In emerg ency Department that he was noted to have an elevated total bilirubin of 11.8, hemoglobin of 5.4 MCV 106. INR 1.8. Patient found to have +2 pitting edema, diffuse petechia. Patient transfused total 5 units RBC, hemoglobin 7.8 Currently, with no active bleeding Hyperbilirubinemia, total bilirubin 13, direct bilirubin 3.5; concern for possible underly ing hemolysis, LDH 403, Dr. Castillo consulted, Elen' test negative, possibly due to low-grad e hemolysis or ineffective erythropoiesis, splenic sequestration. GI workup, Dr. Foley consulted for upper lower endoscopy, tentative endoscopy for today Transthoracic echocardiogram indicated moderate to severe pulmonary hypertension, right dragan tricular hypertrophy Currently patient seen at bedside, indicates feeling generally well, underwent bowel prep, scheduled for endoscopy today. No chest pain or short of breath, denies any abdominal distention, no confusion. Rash on extremities seems to be clearing up Scheduled Medications ceFAZolin 1 g Intravenous Q8H cyanocobalamin 1,000 mcg Intramuscular Q30 Days folic acid (FOLVITE) IVPB 1 mg Intravenous Daily furosemide 20 mg Intravenous See Admin Instructions furosemide 20 mg Intravenous BID-Diuretics midodrine 5 mg Oral BID pantoprazole 40 mg Intravenous QAM AC phytonadione 5 mg Subcutaneous Daily pneumococcal 23-valent vaccine 0.5 mL Intramuscular Once Immunization sodium chloride (PF) 10 mL Intravenous Q8H sodium chloride 10 mL Intravenous Q8H thiamine (VITAMIN B1) IVPB 100 mg Intravenous Q24H Continuous Infusions PRN Medications acetaminophen OR acetaminophen, HYDROcodone-acetaminophen OR HYDROcodone-acetaminop hen, LORazepam, ondansetron OR ondansetron, polyethylene glycol OBJECTIVE Vital Signs: BP 123/58 (BP Location: Left upper arm) | Pulse 74 | Temp 98.4 F (36.9 C) (Oral) | R azeb 18 | Ht 1.803 m (5' 11") | Wt 100.9 kg (222 lb 8 oz) | SpO2 98% | BMI 31.03 kg/m Temp: [97.5 F (36.4 C)-98.4 F (36.9 C)] 98.4 F (36.9 C) (07/20 841) BP: (123-173)/(58-80) 123/58 (07/20 841) Heart Rate: [70-80] 74 (07/20 841) Resp: [16-18] 18 (07/20 841) SpO2: [98 %-100 %] 98 % (09/30 0841) Weight: [100.9 kg (222 lb 8 oz)] 100.9 kg (222 lb 8 oz) (07/20 0435) Physical Exam Constitutional: He is oriented to person, place, and time. He appears well-developed and we ll-nourished. Awake alert no acute distress Icteric-appearing HENT: Mouth/Throat: No oropharyngeal exudate. Cardiovascular: Normal rate. Murmur heard. Pulmonary/Chest: Effort normal and breath sounds normal. Abdomina/Gl: Soft. Abdomen slightly distended, no obvious bulging flanks Hepatojugular reflux noted on exam Musculoskeletal: He exhibits edema. +2 pitting edema bilateral ankles, a venous stasis ulcers foul-smelling, discharge noted, n o obvious signs of cellulitis Neurological: He is alert and oriented to person, place, and time. No cranial nerve deficit . Skin: Skin is warm. Petechia noted primarily lower extremities and thighs Petechiae also noted upper extremities and abdominal area Psychiatric: He has a normal mood and affect. His behavior is normal. Nursing note and vitals reviewed. DATA CBC: Lab Results Component Value Date WBC 6.06 07/20/2018 RBC 2.15 (L) 07/20/2018 HGB 7.8 (L) 07/20/2018 HCT 20.6 (LL) 07/20/2018 MCV 95.8 07/20/2018 MCH 36.4 (H) 07/20/2018 MCHC 38.0 (H) 07/20/2018 RDW 93.2 (H) 07/20/2018 PLT 94 (L) 07/20/2018 MPV 7.4 07/20/2018 DIFFTYPE MANUAL 07/20/2018 BMP: Lab Results Component Value Date NA 138 07/20/2018 K 3.6 07/20/2018 CL 102 07/20/2018 CO2 23 07/20/2018 ANIONGAP 17 07/20/2018 GLUF 109 (H) 07/20/2018 BUN 22 07/20/2018 CREATININE 1.5 (H) 07/20/2018 BCR 15 07/20/2018 CA 8.1 (L) 07/20/2018 EGFR 49 (L) 07/20/2018 Hepatic Function Panel: Lab Results Component Value Date PROT 7.3 07/20/2018 ALB 2.8 (L) 07/20/2018 BILITOT 14.5 (H) 07/20/2018 BILIDIR 3.5 (H) 07/18/2018 ALP 67 07/20/2018 AST 61 (H) 07/20/2018 ALT 17 07/20/2018 PT/INR: Lab Results Component Value Date INR 1.8 07/17/2018 Last 3 Troponin: No results found for: TROPONINI CPK: No results found for: CKTOTAL CKMB: No results found for: CKMB PROBLEM LIST Principal Problem: Alcoholic cirrhosis of liver with ascites (HCC) Active Problems: Abnormal blood coagulation profile ETOH abuse Hyperbilirubinemia Anemia Thrombocytopenia (HCC) Hyponatremia Multiple open wounds of lower leg CULLEN (acute kidney injury) (HCC) Pulmonary hypertension (moderate/severe) ASSESSMENT & PLAN #1. Macrocytic anemia - Hemoglobin 5.4, MCV 114, on presentation - Unfortunately iron panel not drawn prior to transfusion - History of hepatic cirrhosis, denies bleeding/melanotic stools - Hyperbilirubinemia; total bilirubin 11, direct bilirubin 3.5 (indirect bilirubin approxim ate 8) - Concern for possible hemolysis, LDH 403. Elen test negative - Hematology consult; suspect low-grade hemolysis or ineffective erythropoiesis, splenic sequestration from splenomegaly - GI workup; upper & lower endoscopy - Currently no active bleeding - Received total of 5 units packed RBC, currently hemoglobin 7.8 #2. Hepatic cirrhosis - History of EtOH, drinks for over 30 years, currently down to 2-3 beer a day, last drink a pproximately 3 days ago - No signs of alcohol withdrawals, place on CIWA - Coagulopathy, INR 1.8; administer vitamin K subcu - Thrombocytopenia 81,000 - Mild ascites noted on exam - Hypoalbuminemia, received 25 g IV albumin - Ammonia level normal - US liver , no gallbladder disease, positive steatosis - Hyperbilirubinemia, elevated indirect - Viral chronic hepatitis panel; negative - Echocardiogram; pulmonary hypertension with right ventricular enlargement; cardio hepatic syndrome/hepatopulmonary syndrome also on differential (hepatojugular reflex noted on exam) - Treatment; alcohol cessation, correct anemia, cautious diuresis - Case discussed over the phone with Dr. Adhikari #3. Petechiae - Upper and lower lower extremity petechiae Noted, minimal trunk involvement - Due to thrombocytopenia/coagulopathy/lymphedema/right-sided heart failure - Rule out Vasculitis workup; ESR NL, DIOGENES pending #4. Lower extremity lymphedema - Multifactorial: - Echocardiogram; findings suggestive of pulmonary hypertension with clinical signs of righ t-sided heart failure - Secondary to liver disease/portal hypertension/hypoalbuminemia - Lower extremity ultrasound negative for deep vein thrombosis - IV Lasix at 20 mg BiD - Venous stasis ulcers; malodorous; wound culture positive for group B strep wound care, IV Ancef #5. Renal insufficiency - Improving - Creatinine 1.5 , - Hepatorenal syndrome? - Hematuria noted on UA - IV Lasix, monitor renal function #6. Hypocalcemia/hyponatremia - ionized calcium; 1.06 - will give 1 g calcium gluconate Disposition: Code Status: Full Code Jessee Tam MD 07/20/2018 aher, Lee Salas MD - 07/19/2018 3:24 PM PDT Progress Notes by Lee Foley IV, MD at 07/19/18 1524 Author: Lee Foley IV, MD Service: Gastroenterology Author Type: Physician Filed: 07/19/18 153 Date of Service: 07/19/181523 Status: Signed Full Service Supervisor: Lee Foley IV, MD (Physician) [facility] Gastroenterology Service Inpatient Consult Follow Up Note Hospital Day: LOS: 2 days SUBJECTIVE Patient Summary: Admitted with degree of acute on chronic liver dysfunction the setti ng of alcohol associated cirrhosis. Profound anemia without clinical overt bleeding. Macrocy tic parameters. Iron studies not pursued prior to transfusion. Events: See blood transfusions and his anemia is now significantly improved. He reall y denies any substantial symptoms. Discussed with hospitalist Dr. Loco informs me that Echo cardiogram showed pulmonary hypertension raising possibility of component of hepatopulmonary syndrome the patient not hypoxic. For now main clinical issue is the anemia and will pursue further evaluation of that. Scheduled Medications ceFAZolin 1 g Intravenous Q8H cyanocobalamin 1,000 mcg Intramuscular Q30 Days folic acid (FOLVITE) IVPB 1 mg Intravenous Daily furosemide 20 mg Intravenous See Admin Instructions furosemide 20 mg Intravenous BID-Diuretics midodrine 5 mg Oral BID pantoprazole 40 mg Intravenous QAM AC phytonadione 5 mg Subcutaneous Daily pneumococcal 23-valent vaccine 0.5 mL Intramuscular Once Immunization sodium chloride (PF) 10 mL Intravenous Q8H sodium chloride 10 mL Intravenous Q8H thiamine (VITAMIN B1) IVPB 100 mg Intravenous Q24H Continuous Infusions PRN Medications acetaminophen OR acetaminophen, HYDROcodone-acetaminophen OR HYDROcodone-acetaminop hen, LORazepam, ondansetron OR ondansetron, polyethylene glycol OBJECTIVE Vital Signs: BP 137/68 (BP Location: Left upper arm) | Pulse 70 | Temp 98.1 F (36.7 C) (Oral) | R azeb 16 | Ht 1.803 m (5' 11") | Wt 102.6 kg (226 lb 4.8 oz) | SpO2 100% | BMI 31.56 kg/m Vital signs reviewed. General appearance: Appears chronically ill and overtly jaundiced but not in acute distres s. Psychiatric: Appropriate affect, behavior and judgment appear normal. Neurological: Patient is alert and oriented. Cardiovascular: Regular rate and rhythm, no murmur heard. Pulmonary/Chest: Clear bilaterally without wheezes. Abdominal: Normal active bowel sounds. Soft, no mass or hepatosplenomegaly. No tendern ess with palpation. No involuntary guarding or rebound. DATA Lab data: CBC: Lab Results Component Value Date WBC 6.82 07/19/2018 RBC 2.23 (L) 07/19/2018 HGB 8.0 (L) 07/19/2018 HCT 21.5 (L) 07/19/2018 MCV 96.5 07/19/2018 MCH 35.9 (H) 07/19/2018 MCHC 37.3 (H) 07/19/2018 RDW 95.8 (H) 07/19/2018 PLT 78 (L) 07/19/2018 MPV 7.7 07/19/2018 DIFFTYPE MANUAL 07/19/2018 CMP: Lab Results Component Value Date NA 136 07/19/2018 K 3.6 07/19/2018 CL 100 07/19/2018 CO2 21 (L) 07/19/2018 ANIONGAP 19 07/19/2018 GLUF 114 (H) 07/19/2018 BUN 24 07/19/2018 CREATININE 1.6 (H) 07/19/2018 BCR 15 07/19/2018 CA 8.0 (L) 07/19/2018 PROT 7.1 07/19/2018 ALB 2.6 (L) 07/19/2018 GLOB 4.5 07/19/2018 BILITOT 13.6 (H) 07/19/2018 ALP 77 07/19/2018 AST 64 (H) 07/19/2018 ALT 17 07/19/2018 EGFR 45 (L) 07/19/2018 PT/INR: Lab Results Component Value Date INR 1.8 07/17/2018 Lipase: Lab Results Component Value Date LIPASE 395 (H) 07/17/2018 Diagnostic imaging: Echo cardiac adult complete Impression 1. Overall left ventricular systolic function is normal with, an EF between 60 - 65 %. 2. Pseudonormal LV diastolic filling pattern, consistent with elevated LA pressure and mode rate dysfunction (Grade II). 3. Moderate tricuspid regurgitation present. 4. There is moderate to severe pulmonary hypertension. PROBLEM LIST Principal Problem: Alcoholic cirrhosis of liver with ascites (HCC) Active Problems: Abnormal blood coagulation profile ETOH abuse Hyperbilirubinemia Anemia Thrombocytopenia (HCC) Hyponatremia Multiple open wounds of lower leg CULLEN (acute kidney injury) (HCC) Pulmonary hypertension (moderate/severe) ASSESSMENT & PLAN Profound macrocytic anemia Alcohol associated cirrhosis Thrombocytopenia Coagulopathy with elevated INR Ongoing alcohol abuse Pulmonary hypertension on echocardiogram though not hypoxic Anemia improved after transfusion and patient clinically stable. We will pursue EGD and col onoscopy in a.m. Reviewed in detail the patient is willing to proceed with such. Recommendations 1. Schedule for EGD and colonoscopy in a.m. - The procedure was discussed in detail to incl ude indications, limitations, alternatives available and potential complications to include but not limited to bleeding, infection, tear or perforation, missed lesions and potential re action to medications. Patient and/or responsible adult voiced full understanding of these, opportunity for questions provided and informed consent was obtained. After review of patient's overall medical condition appears stable to proceed with invasive medical procedure under sedation/anesthesia. 2. Begin colon prep this evening. 2. Further recommendations based on findings. Stephy Foley IV, M.D. [facility] 07/19/2018 This note was dictated using [employer] voice recognition software. Document was reviewed at ti me of dictation but [id number] errors may be present. Please call with any questions or c larifications. onversion Trans action, Provider Unknown - 07/19/2018 1:47 PM PDT Case Management by Jose Martin Dickey RN at 07/19/18 9247 Author: Jose Martin Dickey RN Service: (none) Author Type: Registered Nurse Filed: 07/19/18 9609 Date of Service: 07/19/18 1347 Status: Signed Full Service Supervisor: Jose Martin Dickey RN (Registered Nurse) 07/19/18 2203 Discharge Planning Evaluation Admitting Diagnosis Alcoholic cirrhosis of liver with ascites Readmission No Living Arrangements Alone Support Systems Friends/neighbors ([place]) Type of Residence Private residence House type House 2 story ([place], [place]) Bathrooms on 1st Floor 1-Full Independent with ADL's Yes Independent with Mobility Yes Home Care Services No Caregiver after Discharge No Mental Status Oriented Prior functional status Independent Power of [employer] No Anticipated Discharge Plan Post Acute Care Needs None at this time Plan communicated to patient/family Yes Resources Financial concerns No Transportation issues No Patient/Family concerns No Prescription Plan Yes Name of Pharmacy [facility] in [place] Previous home health equipment No Vascular access device No Ostomy/Drains/Appliances No Anticipated Disposition Facility Type Home Met with Doug and discussed discharge planning, Pt is a 53 y.o., male admitted with Alcoh olic cirrhosis of liver with ascites. Pt A/Ox4, lives alone in a two story home in [facility]. Pt working on moving to [place], [place] to a one story home. Pt independent with ADLs and mob ility. Pt may need home health for wound care pending clinical picture at discharge. Pt ambar es use or need for DME supplies including Home O2, Dialysis, or Anticoagulated. Pt has own v ehicle here at the hospital and will transport home once medically stable. Patient's PCP is: Chiquita David MD Patient's insurance:[facility] Coordinated care Coverage concerns: No Medication coverage/concerns: Yes/No Rx Bedside Delivery: TBD Community resources utilized / needed:None/No Assistance in transportation: No Identification of any specific education / training: None/No Barriers to Discharge / Alternative housing needed:None/No Anticipated DCP: Home Jose Martin Dickey Jessee Barreto MD - 07/19/2018 12:49 PM PDT Progress Notes by Jessee Tam MD at 07/19/18 1247 Author: Jessee Tam MD Service: Hospitalist Author Type: Physician Filed: 07/19/18 6671 Date of Service: 07/19/18 124 Status: Addendum Full Service Supervisor: Jessee Tam MD (Physician) Related Notes: Original Note by Jessee Tam MD (Physician) filed at 07/19/18 1327 [facility] Service: Hospitalist Progress Note Hospital Day: LOS: 2 days Post-Op Day: * No surgery found * SUBJECTIVE Patient Summary: admission H and P Dr. Corrales:"The patient is a 53 y.o. male with sig nificant past medical history of EOH LIVER CIRRHOSIS, ANEMIA, COAGULOPATHY, HYPERBILIRUBINE PRASHANTH, transfers from [facility] for abnormal labs, worsening leg wounds . He was admitted in [facility] end of december 2017 for sepsis, pna, liver cirrhosis. He improved and discharged with instruction to stop etoh. Since then he has cut down but still drinking 3-4 beers / we ek. Has not seen any liver specialist. He went to see the Er there for worsening leg edema, wounds. Then noted his Hb 5.4. So se nt here for further care. He denies any bleeding from anywhere. No fever, chills. He only take 81 mg asa once in a while. Events Overnight: 53-year-old male history of alcohol-induced liver cirrhosis ([place] for > 30 years), no prior records available at our facility. Patient had developed low er extremity swelling over the last 2 weeks with open sores, petechia rash noted on upper an d lower extremities, he was seen at his primary care physician's office today in [place], blood work indicated anemia as result he was referred to our emergency department. In emerg ency Department that he was noted to have an elevated total bilirubin of 11.8, hemoglobin of 5.4 MCV 106. INR 1.8. Patient found to have +2 pitting edema, diffuse petechia. Patient transfused total 5 units RBC, hemoglobin 8.0 currently Hyperbilirubinemia, total bilirubin 13, direct bilirubin 3.5; concern for possible underly ing hemolysis, LDH 403, Dr. Castillo consulted, Elen' test negative. GI workup, Dr. Foley consulted for upper lower endoscopy, tentative endoscopy for tomorrow Currently patient seen at bedside, indicates that generally feeling improved after receivin g blood transfusion. Denies any pruritus. No nausea no emesis. He believes petechia rash has improved since admission, denies any increasing abdominal distention Currently on room air Scheduled Medications ceFAZolin 1 g Intravenous Q8H folic acid (FOLVITE) IVPB 1 mg Intravenous Daily furosemide 20 mg Intravenous Daily furosemide 20 mg Intravenous See Admin Instructions midodrine 5 mg Oral BID pantoprazole 40 mg Intravenous QAM AC phytonadione 5 mg Subcutaneous Daily pneumococcal 23-valent vaccine 0.5 mL Intramuscular Once Immunization sodium chloride (PF) 10 mL Intravenous Q8H sodium chloride 10 mL Intravenous Q8H thiamine (VITAMIN B1) IVPB 100 mg Intravenous Q24H Continuous Infusions PRN Medications acetaminophen OR acetaminophen, HYDROcodone-acetaminophen OR HYDROcodone-acetaminop hen, LORazepam, ondansetron OR ondansetron, polyethylene glycol OBJECTIVE Vital Signs: BP 137/68 (BP Location: Left upper arm) | Pulse 70 | Temp 98.1 F (36.7 C) (Oral) | R azeb 16 | Ht 1.803 m (5' 11") | Wt 102.6 kg (226 lb 4.8 oz) | SpO2 100% | BMI 31.56 kg/m Temp: [97.1 F (36.2 C)-98.6 F (37 C)] 98.1 F (36.7 C) (07/19 1139) BP: (132-158)/(63-73) 137/68 (07/19 1139) Heart Rate: [68-78] 70 (07/19 1139) Resp: [14-20] 16 (07/19 1139) SpO2: [99 %-100 %] 100 % (07/19 1139) Weight: [102.6 kg (226 lb 4.8 oz)] 102.6 kg (226 lb 4.8 oz) (07/19 351) Physical Exam Constitutional: He is oriented to person, place, and time. He appears well-developed and we ll-nourished. Awake alert no acute distress Icteric-appearing HENT: Mouth/Throat: No oropharyngeal exudate. Cardiovascular: Normal rate. Murmur heard. Pulmonary/Chest: Effort normal and breath sounds normal. Abdomina/Gl: Soft. Abdomen slightly distended, no obvious bulging flanks Hepatojugular reflux noted on exam Musculoskeletal: He exhibits edema. +2 pitting edema bilateral ankles, a venous stasis ulcers foul-smelling, discharge noted, n o obvious signs of cellulitis Neurological: He is alert and oriented to person, place, and time. No cranial nerve deficit . Skin: Skin is warm. Petechia noted primarily lower extremities and thighs Petechiae also noted upper extremities and abdominal area Psychiatric: He has a normal mood and affect. His behavior is normal. Nursing note and vitals reviewed. DATA CBC: Lab Results Component Value Date WBC 6.82 07/19/2018 RBC 2.23 (L) 07/19/2018 HGB 8.0 (L) 07/19/2018 HCT 21.5 (L) 07/19/2018 MCV 96.5 07/19/2018 MCH 35.9 (H) 07/19/2018 MCHC 37.3 (H) 07/19/2018 RDW 95.8 (H) 07/19/2018 PLT 78 (L) 07/19/2018 MPV 7.7 07/19/2018 DIFFTYPE MANUAL 07/19/2018 BMP: Lab Results Component Value Date NA 136 07/19/2018 K 3.6 07/19/2018 CL 100 07/19/2018 CO2 21 (L) 07/19/2018 ANIONGAP 19 07/19/2018 GLUF 114 (H) 07/19/2018 BUN 24 07/19/2018 CREATININE 1.6 (H) 07/19/2018 BCR 15 07/19/2018 CA 8.0 (L) 07/19/2018 EGFR 45 (L) 07/19/2018 Hepatic Function Panel: Lab Results Component Value Date PROT 7.1 07/19/2018 ALB 2.6 (L) 07/19/2018 BILITOT 13.6 (H) 07/19/2018 BILIDIR 3.5 (H) 07/18/2018 ALP 77 07/19/2018 AST 64 (H) 07/19/2018 ALT 17 07/19/2018 PT/INR: Lab Results Component Value Date INR 1.8 07/17/2018 Last 3 Troponin: No results found for: TROPONINI CPK: No results found for: CKTOTAL CKMB: No results found for: CKMB PROBLEM LIST Principal Problem: Alcoholic cirrhosis of liver with ascites (HCC) Active Problems: Abnormal blood coagulation profile ETOH abuse Hyperbilirubinemia Anemia Thrombocytopenia (HCC) Hyponatremia Multiple open wounds of lower leg CULLEN (acute kidney injury) (HCC) Pulmonary hypertension (moderate/severe) ASSESSMENT & PLAN #1. Macrocytic anemia - Hemoglobin 5.4, MCV 114 - Unfortunately iron panel not drawn prior to transfusion - History of hepatic cirrhosis, denies bleeding/melanotic stools - Hyperbilirubinemia; total bilirubin 11, direct bilirubin 3.5 (indirect bilirubin approxim ate 8) - Concern for possible hemolysis, LDH 403. Elen test negative - Hematology consult - GI workup; upper & lower endoscopy - Currently no active bleeding - Received total of 5 units packed RBC, currently hemoglobin 8.0 #2. Hepatic cirrhosis - History of EtOH, drinks for over 30 years, currently down to 2-3 beer a day, last drink a pproximately 3 days ago - No signs of alcohol withdrawals, place on CIWA - Coagulopathy, INR 1.8; administer vitamin K subcu at - Thrombocytopenia 81,000 - Mild ascites noted on exam - Hypoalbuminemia, received 25 g IV albumin - Ammonia level normal - US liver , no gallbladder disease, positive steatosis - Hyperbilirubinemia, elevated indirect - Viral chronic hepatitis panel; negative - Echocardiogram; pulmonary hypertension with right ventricular enlargement; cardio hepatic syndrome/hepatopulmonary syndrome also on differential (hepatojugular reflex noted on exam) #3. Petechiae - Upper and lower lower extremity petechiae Noted, minimal trunk involvement - Due to thrombocytopenia/coagulopathy/lymphedema/right-sided heart failure - Rule out Vasculitis workup; ESR NL, DIOGENES pending #4. Lower extremity lymphedema - Multifactorial: - Echocardiogram; findings suggestive of pulmonary hypertension with clinical signs of righ t-sided heart failure - Secondary to liver disease/portal hypertension/hypoalbuminemia - Lower extremity ultrasound negative for deep vein thrombosis - IV Lasix at 20 mg q day - Venous stasis ulcers; malodorous; wound care, empiric IV Ancef #5. Renal insufficiency - Creatinine 1.8, no prior blood work available - Hepatorenal syndrome? - Hematuria noted on UA - IV Lasix, monitor renal function #6. Hypocalcemia/hyponatremia - ionized calcium; 1.06 - will give 1 g calcium gluconate Disposition: Code Status: Full Code Jessee Tam MD 07/19/2018 Estevan Judith Hooks D - 07/18/2018 8:44 AM PDT Progress Notes by Jessee Tam MD at 07/18/18843 Author: Jessee Tam MD Service: Hospitalist Author Type: Physician Filed: 07/18/18943 Date of Service: 07/18/18843 Status: Signed Full Service Supervisor: Jessee Tam MD (Physician) [facility] Service: Hospitalist Progress Note Hospital Day: LOS: 1 day Post-Op Day: * No surgery found * SUBJECTIVE Patient Summary: admission H and P Dr. Corrales:"The patient is a 53 y.o. male with sig nificant past medical history of EOH LIVER CIRRHOSIS, ANEMIA, COAGULOPATHY, HYPERBILIRUBINE PRASHANTH, transfers from [facility] for abnormal labs, worsening leg wounds . He was admitted in [facility] end of december 2017 for sepsis, pna, liver cirrhosis. He improved and discharged with instruction to stop etoh. Since then he has cut down but still drinking 3-4 beers / we ek. Has not seen any liver specialist. He went to see the Er there for worsening leg edema, wounds. Then noted his Hb 5.4. So se nt here for further care. He denies any bleeding from anywhere. No fever, chills. He only take 81 mg asa once in a while. Events Overnight: 53-year-old male history of alcohol-induced liver stenosis, no prio r records available at our facility. Patient had developed lower extremity swelling over the last 2 weeks with open sores, petechia rash noted on upper and lower extremities, he was s een at his primary care physician's office today in [place], blood work indicated anemia a s result he was referred to our emergency department. In emergency Department that he was no jeannette to have an elevated total bilirubin of 11.8, hemoglobin of 5.4 MCV 106, he was transfuse d 3 units and admitted to the hospital service. Between blood he did receive the 20 mg IV La six, 25 g IV albumin. INR 1.8 Juan patient seen at bedside awake alert no acute distress, he has a petechial rash note d on the upper lower extremities, +2 pitting edema feet/lower extremity, with some open sore s draining a foul-smelling. He indicates he continues to drink, proximal to 3 beer a day last drink 2 days ago, current ly denies any withdrawal-like symptoms. Scheduled Medications albumin human 50 g Intravenous Daily famotidine 20 mg Oral BID Or famotidine 20 mg Intravenous BID furosemide 20 mg Intravenous Daily midodrine 10 mg Oral BID pneumococcal 23-valent vaccine 0.5 mL Intramuscular Once Immunization sodium chloride (PF) 10 mL Intravenous Q8H sodium chloride 10 mL Intravenous Q8H thiamine 100 mg Oral Daily Continuous Infusions PRN Medications acetaminophen OR acetaminophen, HYDROcodone-acetaminophen OR HYDROcodone-acetaminop hen, LORazepam, ondansetron OR ondansetron, polyethylene glycol OBJECTIVE Vital Signs: BP 151/74 (BP Location: Left upper arm) | Pulse 85 | Temp 97.8 F (36.6 C) (Oral) | R azeb 16 | Ht 1.803 m (5' 11") | Wt 101.8 kg (224 lb 8 oz) | SpO2 100% | BMI 31.31 kg/m Temp: [97.3 F (36.3 C)-98.9 F (37.2 C)] 97.8 F (36.6 C) (07/18 730) BP: (115-151)/(58-77) 151/74 (07/18 730) Heart Rate: [75-88] 85 (07/18 730) Resp: [14-18] 16 (07/18 730) SpO2: [99 %-100 %] 100 % (07/18 730) Height: [180.3 cm (5' 11")] 180.3 cm (5' 11") (07/17 2231) Weight: [101.8 kg (224 lb 8 oz)-102.5 kg (225 lb 15.5 oz)] 101.8 kg (224 lb 8 oz) (07/17 231) BMI (Calculated): [31.4] 31.4 (07/17 2231) Physical Exam Constitutional: He is oriented to person, place, and time. He appears well-developed and we ll-nourished. Awake alert no acute distress Icteric-appearing HENT: Mouth/Throat: No oropharyngeal exudate. Cardiovascular: Normal rate. Murmur heard. Pulmonary/Chest: Effort normal and breath sounds normal. Abdomina/Gl: Soft. Abdomen slightly distended, no obvious bulging flanks Musculoskeletal: He exhibits edema. +2 pitting edema bilateral ankles, a venous stasis ulcers foul-smelling, discharge noted, n o obvious signs of cellulitis Neurological: He is alert and oriented to person, place, and time. No cranial nerve deficit . Skin: Skin is warm. Petechia noted primarily lower extremities and thighs Petechiae also noted upper extremities and abdominal area Psychiatric: He has a normal mood and affect. His behavior is normal. Nursing note and vitals reviewed. DATA CBC: Lab Results Component Value Date WBC 5.69 07/18/2018 RBC 1.65 (L) 07/18/2018 HGB 6.4 (LL) 07/18/2018 HCT 17.6 (LL) 07/18/2018 MCV 106.8 (H) 07/18/2018 MCH 38.7 (H) 07/18/2018 MCHC 36.3 (H) 07/18/2018 RDW 68.7 (H) 07/18/2018 PLT 81 (L) 07/18/2018 MPV 7.7 07/18/2018 DIFFTYPE AUTOMATED 07/18/2018 BMP: Lab Results Component Value Date NA 135 07/18/2018 K 3.6 07/18/2018 CL 100 07/18/2018 CO2 25 07/18/2018 ANIONGAP 14 07/18/2018 GLUF 91 07/18/2018 BUN 32 (H) 07/18/2018 CREATININE 1.8 (H) 07/18/2018 BCR 18 07/18/2018 CA 7.7 (L) 07/18/2018 EGFR 40 (L) 07/18/2018 Hepatic Function Panel: Lab Results Component Value Date PROT 7.4 07/18/2018 ALB 2.6 (L) 07/18/2018 BILITOT 11.8 (H) 07/18/2018 ALP 96 07/18/2018 AST 63 (H) 07/18/2018 ALT 19 07/18/2018 PT/INR: Lab Results Component Value Date INR 1.8 07/17/2018 Last 3 Troponin: No results found for: TROPONINI CPK: No results found for: CKTOTAL CKMB: No results found for: CKMB PROBLEM LIST Principal Problem: Alcoholic cirrhosis of liver with ascites (HCC) Active Problems: Abnormal blood coagulation profile ETOH abuse Hyperbilirubinemia Anemia Thrombocytopenia (HCC) Hyponatremia Multiple open wounds of lower leg CULLEN (acute kidney injury) (HCC) ASSESSMENT & PLAN #1. Macrocytic anemia - Hemoglobin 5.4, MCV 114 - History of hepatic cirrhosis, denies bleeding/melanotic stools - IV thiamine, IV folic acid - Check guaiac stools - Warrants a GI workup for bleeding, Dr. Foley consulted - Received 2 units RBCs , iron panel not sent prior to blood transfusion , Goal hemoglobin greater 7.0 - Currently no active signs of bleeding - Rule out hemolysis, check indirect total bilirubin, LDH #2. Hepatic cirrhosis - History of EtOH, drinks for over 30 years, currently down to 2-3 beer a day, last drink p tessie 2 days ago - No signs of alcohol withdrawals, place on CIWA - Coagulopathy, INR 1.8; administer vitamin K subcu at - Thrombocytopenia 81,000 - Mild ascites noted on exam - Hypoalbuminemia, received 25 g IV albumin - Ammonia level normal - US liver , no gallbladder disease, positive steatosis - Hyperbilirubinemia, total bilirubin 11.8, check direct and indirect bilirubin - Check chronic hepatitis panel #3. Petechiae - Upper lower extremity petechiae also noted on abdomen - Due to thrombocytopenia/coagulopathy/lower extremity venous stasis #4. Lower extremity lymphedema - Secondary to liver disease/portal hypertension/hypoalbuminemia - Check ultrasound rule out deep vein thrombosis - Check transthoracic echocardiogram, cardiac murmur noted, chest x-ray with cardiomegaly , right-sided heart failure? - IV Lasix at 20,000,000 g q day - Venous stasis ulcers; malodorous; wound care, empiric IV Ancef #5. Renal insufficiency - Creatinine 1.8, no prior blood work available - Hepatorenal syndrome? - Hematuria noted on UA - IV Lasix, monitor renal function #6. Hypocalcemia/hyponatremia - Check ionized calcium Disposition: Code Status: Full Code Jessee Tam MD 07/18/2018 onversion Transact ion, Provider Unknown - 07/18/2018 12:45 AM PDTFormatting of this note might be different fr om the original. Pharmacy Note by Jackie Hernandez RPH at 07/18/1844 Author: Jackie Hernandez RPH Service: Pharmacy Author Type: Pharmacist Filed: 07/18/185 Date of Service: 07/18/1844 Status: Signed Full Service Supervisor: Jackie Hernandez RPH (Pharmacist) Clinical Pharmacy Note: Renal Monitoring Height: 180.3 cm Weight: 101.8 kg Serum creatinine: 2.1 mg/dL (H) 07/17/18 1627 Estimated creatinine clearance: 49.4 mL/min (A) Pharmacy dosing for renal function per Dr. Corrales. Will continue Famotidine 20 mg IV/PO Q12H for now - if clearance does not increase to great er than or equal to 50 mL/min then interval may need to be changed to Q24H. Pharmacy will co ntinue to follow and adjust medications as needed. Jackie Hernandez, PharmD 07/18/2018 12:44 AM docume nted in this encounter H&P Notes Lee Foley MD - 07/20/2018 11:54 AM PDT H&P by Lee Foley IV, MD at 07/20/18 4729 Author: Lee Foley IV, MD Service: Gastroenterology Author Type: Physician Filed: 07/20/18 1155 Date of Service: 07/20/18 1154 Status: Signed Full Service Supervisor: Lee Foley IV, MD (Physician) [facility] Service: Gastroenterology Service Pre-procedure History & Physical Update Patient Name: Doug Duran Date of Admission: 07/20/2018 See my inpatient consultation. On reexamination of the patient and patient's chart today, t here are no changes. Moderate Sedation Presedation Assessment completed. ASA Classification: Per Anesthesia Service Mallampati Classification: Per Anesthesia Service Stephy Foley IV, M.D. [facility] Gastroenterology 07/20/2018 Arlene Portillo MD - 07/17/2018 8:44 PM PDT H&P by Arlene Corrales MD at 07/17/182043 Author: Arlene Corrales MD Service: Internal Medicine Author Type: Physician Filed: 07/17/182111 Date of Service: 07/17/182043 Status: Signed Full Service Supervisor: Arlene Corrales MD (Physician) [facility] Service: Hospitalist Admission History & Physical Pt: Doug Duran AGE/SEX: 53 y.o. male Date of Admission: 07/17/2018 Chief Complaint: Leg wounds, abnormal blood work History of Present Illness: The patient is a 53 y.o. male with significant past medical history of EOH LIVER CIRRHOSIS , ANEMIA, COAGULOPATHY, HYPERBILIRUBINEMIA, transfers from [facility] for abnormal labs, wor sening leg wounds . He was admitted in [facility] end of december 2017 for sepsis, pna, liver cirrhosis. He improved and discharged with instruction to stop etoh. Since then he has cut down but still drinking 3-4 beers / week. Has not seen any liver specialist. He went to see the Er there for worsening leg edema, wounds. Then noted his Hb 5.4. So se nt here for further care. He denies any bleeding from anywhere. No fever, chills. He only take 81 mg asa once in a while. Review of Symptoms: 12 point ROS reviewed and negative other than above PMHx: History reviewed. No pertinent past medical history. PSHx: History reviewed. No pertinent surgical history. Prior To admission Meds: Prior to Admission medications Not on File (Not in a hospital admission) Allergies: Allergies Allergen Reactions Doxycycline Hives Family Hx: History reviewed. No pertinent family history. Social Hx: Social History Substance Use Topics Smoking status: Never Smoker Smokeless tobacco: Current User Comment: pt reports "1 chew a day." Alcohol use Yes Comment: 1 beer or 1 mixed drink per day. "I used to drink a couple beers 2-3 a day." History Smoking Status Never Smoker Smokeless Tobacco Current User Comment: pt reports "1 chew a day." History Alcohol Use Yes Comment: 1 beer or 1 mixed drink per day. "I used to drink a couple beers 2-3 a day." History Drug Use No Objective: Vital Signs: BP 144/66 | Pulse 82 | Temp 97.8 F (36.6 C) (Oral) | Resp 15 | Wt 102.5 kg (225 lb 15.5 oz) | SpO2 100% Physical Exam: Constitutional: Oriented to person, place, and time. CHRONIC ILL LOOKING MALE IN BED JAUNDI PHOEBE HEENT: Head: Normocephalic and atraumatic. Nose: Nose normal. Mouth/Throat: Oropharynx is clear and moist. Eyes: Conjunctivae PALE, JAUNDICED and EOM are normal. Pupils are equal, round, and reactiv e to light. Right eye exhibits no discharge. Left eye exhibits no discharge. No scleral icte piper. Neck: Normal range of motion. Neck supple. No JVD present. No tracheal deviation present. N o thyromegaly present. no cervical adenopathy. Cardiovascular: Normal rate, regular rhythm, normal heart sounds with S1 and S2, and intact distal pulses. Exam reveals no gallop and no friction rub. No murmur heard. Pulmonary/Chest: Effort normal and breath sounds normal. No stridor. No respiratory distres s. no wheezes. no rales. exhibits no tenderness. Abdominal: Soft. Bowel sounds are normal. exhibits MODERATE distension and no palpable mass . There is no tenderness. There is no rebound and no guarding. Extremities/Musculoskeletal: BILATERAL LEG WOUNDS ARE COVERED, DRESSED. . exhibits ++++BI LATERAL edema. Neurological: Alert and oriented to person, place, and time. Has normal reflexes. display s normal reflexes. No cranial nerve deficit. Exhibits normal muscle tone. Coordination norm al. Skin: Skin is warm and dry. PETECHIAL RASH THIGHS. PALE, JAUNDICED Psychiatric: Has a normal mood and affect. Behavior is normal. Judgment normal. Data: Admission on 07/17/2018 Component Date Value Ref Range Status WBC 07/17/2018 6.17 3.80 - 11.00 K/uL Final RBC 07/17/2018 1.28* 4.20 - 5.70 M/uL Final HGB 07/17/2018 5.4* 13.2 - 17.0 g/dL Final HCT 07/17/2018 14.6* 39.0 - 50.0 % Final MCV 07/17/2018 114.0* 80.0 - 100.0 fl Final MCH 07/17/2018 41.9* 27.0 - 34.0 pg Final MCHC 07/17/2018 36.7* 32.0 - 35.5 g/dL Final RDW SD 07/17/2018 54.3* 37 - 53 fl Final PLT 07/17/2018 93* 150 - 400 K/uL Final MPV 07/17/2018 7.9 fl Final DIFF TYPE 07/17/2018 AUTOMATED Final NEUTROPHILS 07/17/2018 64.56 % Final LYMPHOCYTES 07/17/2018 19.98 % Final MONOCYTES 07/17/2018 9.40 % Final EOSINOPHILS 07/17/2018 5.67 % Final BASOPHILS 07/17/2018 0.39 % Final NEUTROPHILS ABS 07/17/2018 4.11 1.90 - 7.40 K/uL Final LYMPHOCYTES ABS 07/17/2018 1.27 1.00 - 3.90 K/uL Final MONOCYTES ABS 07/17/2018 0.60 0.00 - 0.80 K/uL Final EOSINOPHILS ABS 07/17/2018 0.36 0.00 - 0.50 K/uL Final BASOPHILS ABS 07/17/2018 0.03 0.00 - 0.10 K/uL Final MORPHOLOGY 07/17/2018 1+ Corrected Platelet Estimate 07/17/2018 DECREASED Final Diff Comment 07/17/2018 SLIDE SCANNED, AGREES WITH AUTOMATED RESULTS. Final SODIUM 07/17/2018 133* 135 - 145 mmol/L Final POTASSIUM 07/17/2018 3.5 3.5 - 4.9 mmol/L Final CHLORIDE 07/17/2018 98* 99 - 109 mmol/L Final CO2 07/17/2018 22* 23 - 32 mmol/L Final ANION GAP AGAP 07/17/2018 16 5 - 20 mmol/L Final GLUCOSE 07/17/2018 154* 65 - 99 mg/dL Final BUN 07/17/2018 34* 8 - 25 mg/dL Final CREATININE 07/17/2018 2.1* 0.70 - 1.30 mg/dL Final BUN/CREAT 07/17/2018 16 Final CALCIUM 07/17/2018 7.8* 8.5 - 10.5 mg/dL Final TOTAL PROTEIN 07/17/2018 8.1 6.3 - 8.2 g/dL Final Albumin 07/17/2018 2.5* 3.6 - 5.0 g/dL Final GLOBULIN 07/17/2018 5.6* 1.3 - 4.9 g/dL Final A/G 07/17/2018 0.4* 1.0 - 2.4 Final TBIL 07/17/2018 10.6* 0.1 - 1.5 mg/dL Final ALK PHOS 07/17/2018 124* 35 - 115 U/L Final AST 07/17/2018 73* 10 - 45 U/L Final ALT 07/17/2018 21 10 - 65 U/L Final EGFR 07/17/2018 33* >60 mL/min/1.73m2 Final AMYLASE 07/17/2018 50 25 - 115 U/L Final LIPASE 07/17/2018 395* 73 - 393 U/L Final APTT 07/17/2018 42* 23 - 32 seconds Final INR 07/17/2018 1.8 Final AMMONIA 07/17/2018 <10 <33 umol/L Final ABO/RH(D) 07/17/2018 A POSITIVE Final ANTIBODY SCREEN 07/17/2018 NEGATIVE Final ARM BAND NUMBER 07/17/2018 [id number] Final UNIT NUMBER 07/17/2018 [id number] Final BLOOD COMPONENT TYPE 07/17/2018 LEUKODEPLETED PC Final UNIT DIVISION 07/17/2018 00 Final STATUS OF UNIT 07/17/2018 ISSUED Final TRANSFUSION STATUS 07/17/2018 OK TO TRANSFUSE Final CROSSMATCH RESULT 07/17/2018 Final Value:COMPATIBLE Testing performed at [facility];[address] [place] [id number] UNIT NUMBER 07/17/2018 [id number] Final BLOOD COMPONENT TYPE 07/17/2018 LEUKODEPLETED PC Final UNIT DIVISION 07/17/2018 00 Final STATUS OF UNIT 07/17/2018 ALLOCATED Final TRANSFUSION STATUS 07/17/2018 OK TO TRANSFUSE Final CROSSMATCH RESULT 07/17/2018 COMPATIBLE Final UNIT NUMBER 07/17/2018 [id number] Final BLOOD COMPONENT TYPE 07/17/2018 LEUKODEPLETED PC Final UNIT DIVISION 07/17/2018 00 Final STATUS OF UNIT 07/17/2018 ISSUED Final TRANSFUSION STATUS 07/17/2018 OK TO TRANSFUSE Final CROSSMATCH RESULT 07/17/2018 COMPATIBLE Final ] CBC: Lab Results Component Value Date WBC 6.17 07/17/2018 RBC 1.28 (L) 07/17/2018 HGB 5.4 (LL) 07/17/2018 HCT 14.6 (LL) 07/17/2018 MCV 114.0 (H) 07/17/2018 MCH 41.9 (H) 07/17/2018 MCHC 36.7 (H) 07/17/2018 RDW 54.3 (H) 07/17/2018 PLT 93 (L) 07/17/2018 MPV 7.9 07/17/2018 DIFFTYPE AUTOMATED 07/17/2018 CMP: Lab Results Component Value Date NA 133 (L) 07/17/2018 K 3.5 07/17/2018 CL 98 (L) 07/17/2018 CO2 22 (L) 07/17/2018 ANIONGAP 16 07/17/2018 GLUF 154 (H) 07/17/2018 BUN 34 (H) 07/17/2018 CREATININE 2.1 (H) 07/17/2018 BCR 16 07/17/2018 CA 7.8 (L) 07/17/2018 PROT 8.1 07/17/2018 ALB 2.5 (L) 07/17/2018 GLOB 5.6 (H) 07/17/2018 BILITOT 10.6 (H) 07/17/2018 ALP 124 (H) 07/17/2018 AST 73 (H) 07/17/2018 ALT 21 07/17/2018 EGFR 33 (L) 07/17/2018 BMP: Lab Results Component Value Date NA 133 (L) 07/17/2018 K 3.5 07/17/2018 CL 98 (L) 07/17/2018 CO2 22 (L) 07/17/2018 ANIONGAP 16 07/17/2018 GLUF 154 (H) 07/17/2018 BUN 34 (H) 07/17/2018 CREATININE 2.1 (H) 07/17/2018 BCR 16 07/17/2018 CA 7.8 (L) 07/17/2018 EGFR 33 (L) 07/17/2018 Hepatic Function Panel: Lab Results Component Value Date PROT 8.1 07/17/2018 ALB 2.5 (L) 07/17/2018 BILITOT 10.6 (H) 07/17/2018 ALP 124 (H) 07/17/2018 AST 73 (H) 07/17/2018 ALT 21 07/17/2018 Magnesium: No results found for: MG Phosphorus: No results found for: PHOS PT/INR: Lab Results Component Value Date INR 1.8 07/17/2018 PTT: Lab Results Component Value Date APTT 42 (H) 07/17/2018 [APTT HgbA1c: No results found for: HGBA1C IMAGING: Us Abdomen, Limited Result Date: 07/17/2018 1. No gallstones or findings of acute cholecystitis or biliary dilatation. 2. Echogenic niels er suggesting steatosis. 3. A right pleural effusion is seen. RADIA Electronically signed Beena Campa MD on Jul 17 2018 8:07PM Referring Provider Line: [phone] ID : [id number] Problem List Principal Problem: Alcoholic cirrhosis of liver with ascites (HCC) Active Problems: Abnormal blood coagulation profile ETOH abuse Hyperbilirubinemia Anemia Thrombocytopenia (HCC) Hyponatremia Multiple open wounds of lower leg CULLEN (acute kidney injury) (HCC) Assessment / Plan: ACUTE / CHRONIC ANEMIA No s/s of bleeding Likely due to worsening disease. Previous Hb around 10 in december 2017 Check fecal occult blood Getting 3 units prbc with lasix ETOH CIRRHOSIS Still drinking etoh but has cut down. counseled on complete cessation. Not sure if steroids candidate. Can d/w git in am COAGULOPATHY Due to liver dz No AC Watch bleeding CULLEN etio not clear. Possible hepatorenal syndrome? Creatinine was normal in december 2017 when he was in hospital. Check U/A, FENa Renal usg Trial of midodrine, albumin If not better, renal consult Leg wounds bilateral Wound care in am The plan has explained in detail to the patient , all questions were answered.All data was reviewed. Code Status: Full Primary Care Physician: No primary care provider on file. Arlene Corrales MD 07/17/2018 9:12 PM documented in this en counter Procedure Notes Lee Foley MD - 07/20/2018 12:20 PM PDT Procedures signed by at 07/20/18 1793 Author: Lee Foley IV, MD Service: Gastroenterology Author Type: Physician Filed: 07/20/18 1254 Date of Service: 07/20/18 1220 Status: Signed Full Service Supervisor: Lee Foley IV, MD (Physician) Procedure Orders: 1. Colonoscopy procedures [[id number]] ordered by Lee Foley IV, MD at 07/20/18 1141 aher, Lee perry MD - 07/20/2018 11:47 AM PDTFormatting of this note might be different from the origina l. Procedures signed by at 07/20/18 1219 Author: Lee Foley IV, MD Service: Gastroenterology Author Type: Physician Filed: 07/20/18 1219 Date of Service: 07/20/18 1147 Status: Signed Full Service Supervisor: Lee Foley IV, MD (Physician) Procedure Orders: 1. EGD [[id number]] ordered by Lee Foley IV, MD at 07/20/18 1140 documented in th is encounter Consult Notes Efraín Quevedo MD - 07/19/2018 1:15 PM PDT Consult* by Efraín Quevedo MD at 07/19/18 1315 Author: Efraín Quevedo MD Service: Hematology/Oncology Author Type: Physician Filed: 07/20/18 1105 Date of Service: 07/19/18 1315 Status: Addendum Full Service Supervisor: Efraín Quevedo MD (Physician) Related Notes: Original Note by Efraín Quevedo MD (Physician) filed at 07/19/18 1426 [facility] Service: Hematology/Oncology Initial Consult Note Date of Admission: 07/17/2018 Reason for Consultation: Anemia, indirect hyperbilirubinemia, question of hemolysis Requesting Physician: Dr. Tam, Hospitalist History Obtained From: Patient and chart review CHIEF COMPLAINT: Fatigue. HISTORY OF PRESENT ILLNESS The patient is 53 y.o. male with a history of alcoholic liver cirrhosis who was hospitalize d at [facility] in [place] in December 2017 for pneumonia. At that time, the pat ient was noted to have hyperbilirubinemia with a total bilirubin of 7.7, mild anemia with he moglobin of 11.4 microcytosis with an MCV of 103.1 and slightly low platelets at 145. CT sc an showed bilateral infiltrates consistent with pneumonia. The patient received transfusion s. Laboratory work on January 19, 2018 after receiving his transfusions showed an iron saturat ion of 92.1, ferritin of 1635, B12 of 135 and folic acid of 3.24. Hemochromatosis testing w as negative The patient presented to [facility] on July 17, 2018 after he was directed by his PCP to do so when he was found to have severe anemia. On presentation at [facility], he was found to have a hemoglobin of 5.4, hematocrit of 14.6, elevated MCV of 11 4 and elevated MCH of 41.9. Total WBC was normal and platelets were slightly low at 93. CM P revealed marked hyperbilirubinemia with a total bilirubin of 10.6 and mild abnormalities o f alkaline phosphatase and AST. Creatinine was elevated at 2.1 and GFR was 33. Abdominal u ltrasound showed an echogenic liver suggesting steatosis. There was no evidence of acute ch olecystitis, biliary dilatation or gallstones. LDH on July 18, 2018 was slightly elevated at 403. Hepatic function panel revealed to hillary bilirubin of 11.9, indirect bilirubin 3.5. CBC showed a hemoglobin of 6.4 and platelets of 81. Elen test was negative. KUB ultrasound on July 18, 2018 revealed splenomegal y. 2-D echo revealed moderate tricuspid regurgitation and moderate to severe pulmonary hype rtension. Bilateral lower extremity Dopplers were negative for deep vein thrombosis. The patient has received a total of 5 units of RBCs. REVIEW OF SYSTEMS Review of Systems Constitutional: Negative for activity change, appetite change, chills, diaphoresis, fatigue , fever and unexpected weight change. HENT: Negative for mouth sores, sore throat and trouble swallowing. Respiratory: Negative for apnea, cough, choking, chest tightness, shortness of breath, whee zing and stridor. Cardiovascular: Positive for leg swelling. Negative for chest pain and palpitations. Gastrointestinal: Negative for abdominal distention, abdominal pain, anal bleeding, blood i n stool, constipation, diarrhea, nausea, rectal pain and vomiting. Genitourinary: Negative for dysuria, frequency and urgency. Skin: Positive for rash. Jaundice Neurological: Negative for dizziness, light-headedness and headaches. Hematological: Negative for adenopathy. Does not bruise/bleed easily. History reviewed. No pertinent past medical history. History reviewed. No pertinent surgical history. Allergies Allergen Reactions Doxycycline Hives No prescriptions prior to admission. Scheduled Medications ceFAZolin 1 g Intravenous Q8H cyanocobalamin 1,000 mcg Intramuscular Q30 Days folic acid (FOLVITE) IVPB 1 mg Intravenous Daily furosemide 20 mg Intravenous See Admin Instructions furosemide 20 mg Intravenous BID-Diuretics midodrine 5 mg Oral BID pantoprazole 40 mg Intravenous QAM AC phytonadione 5 mg Subcutaneous Daily pneumococcal 23-valent vaccine 0.5 mL Intramuscular Once Immunization polyethylene glycol 4,000 mL Oral Once sodium chloride (PF) 10 mL Intravenous Q8H sodium chloride 10 mL Intravenous Q8H thiamine (VITAMIN B1) IVPB 100 mg Intravenous Q24H Continuous Infusions PRN Medications acetaminophen OR acetaminophen, HYDROcodone-acetaminophen OR HYDROcodone-acetaminop hen, LORazepam, ondansetron OR ondansetron, polyethylene glycol History reviewed. No pertinent family history. Social History Social History Marital status: Single Spouse name: N/A Number of children: N/A Years of education: N/A Occupational History Not on file. Social History Main Topics Smoking status: Never Smoker Smokeless tobacco: Current User Comment: pt reports "1 chew a day." Alcohol use Yes Comment: 1 beer or 1 mixed drink per day. "I used to drink a couple beers 2-3 a day." Drug use: No Sexual activity: Not on file Other Topics Concern Not on file Social History Narrative No narrative on file PHYSICAL EXAM Vital Signs: BP 137/68 (BP Location: Left upper arm) | Pulse 70 | Temp 98.1 F (36.7 C) (Oral) | R azeb 16 | Ht 1.803 m (5' 11") | Wt 102.6 kg (226 lb 4.8 oz) | SpO2 100% | BMI 31.56 kg/m Physical Exam Constitutional: He is oriented to person, place, and time. He appears well-nourished. No di stress. HENT: Mouth/Throat: Oropharynx is clear and moist. No oropharyngeal exudate. Eyes: Scleral icterus is present. Cardiovascular: Normal rate and regular rhythm. Murmur heard. Pulmonary/Chest: Effort normal and breath sounds normal. No respiratory distress. He has no wheezes. He has no rales. He exhibits no tenderness. Abdomina/Gl: Soft. He exhibits no distension and no mass. There is no tenderness. There is no rebound and no guarding. Musculoskeletal: He exhibits edema. He exhibits no tenderness. Lymphadenopathy: He has no cervical adenopathy. Neurological: He is alert and oriented to person, place, and time. Skin: Skin is warm and dry. Rash noted. He is not diaphoretic. The patient has a generalized purpuric rash mostly of the upper and lower extremities Psychiatric: He has a normal mood and affect. His behavior is normal. Judgment and thought content normal. DATA CBC: Lab Results Component Value Date WBC 6.82 07/19/2018 RBC 2.23 (L) 07/19/2018 HGB 8.0 (L) 07/19/2018 HCT 21.5 (L) 07/19/2018 MCV 96.5 07/19/2018 MCH 35.9 (H) 07/19/2018 MCHC 37.3 (H) 07/19/2018 RDW 95.8 (H) 07/19/2018 PLT 78 (L) 07/19/2018 MPV 7.7 07/19/2018 DIFFTYPE MANUAL 07/19/2018 CMP: Lab Results Component Value Date NA 136 07/19/2018 K 3.6 07/19/2018 CL 100 07/19/2018 CO2 21 (L) 07/19/2018 ANIONGAP 19 07/19/2018 GLUF 114 (H) 07/19/2018 BUN 24 07/19/2018 CREATININE 1.6 (H) 07/19/2018 BCR 15 07/19/2018 CA 8.0 (L) 07/19/2018 PROT 7.1 07/19/2018 ALB 2.6 (L) 07/19/2018 GLOB 4.5 07/19/2018 BILITOT 13.6 (H) 07/19/2018 ALP 77 07/19/2018 AST 64 (H) 07/19/2018 ALT 17 07/19/2018 EGFR 45 (L) 07/19/2018 LDH: Lab Results Component Value Date LDH 403 (H) 07/18/2018 PT/INR: Lab Results Component Value Date INR 1.8 07/17/2018 PTT: Lab Results Component Value Date APTT 42 (H) 07/17/2018 [APTT} VITAMIN B12: No results found for: [id number] FOLATE: No results found for: FOLATE IRON: No results found for: IRON TIBC: No results found for: IRON, TIBC, LABIRON, UIBC FERRITIN: No results found for: FERRITIN WBC with Differentials: Lab Results Component Value Date NEUTROABS 3.65 07/18/2018 NEUTROMAN 75 07/19/2018 LYMPHOABS 1.02 07/19/2018 LYMPHOMAN 15 07/19/2018 LYMPHSABS 1.25 07/18/2018 LYMPHOPCT 21.88 07/18/2018 MONOMAN 3 07/19/2018 MONOPCT 8.18 07/18/2018 EOSINOABS 0.34 07/19/2018 EOSINOMAN 5 07/19/2018 EOSABS 0.31 07/18/2018 EOSPCT 5.44 07/18/2018 BASOSABS 0.02 07/18/2018 BASOPCT 0.35 07/18/2018 PLTEST DECREASED 07/19/2018 METAABS 0.14 (H) 07/19/2018 COMDIFF SLIDE SCANNED, AGREES WITH AUTOMATED RESULTS. 07/17/2018 Peripheral smear review RBC: Anemia with macrocytic and hyperchromic RBCs. Occasional fragmented red blood cells/s chistocytes. WBC: Normal number and differential. No blasts or atypical lymphocytes. PLT: Mild thrombocytopenia without clumps. Interpretation: Macrocytic and hyperchromic anemia without significant fragmentation, throm bocytopenia. PROBLEM LIST Principal Problem: Alcoholic cirrhosis of liver with ascites (HCC) Active Problems: Abnormal blood coagulation profile ETOH abuse Hyperbilirubinemia Anemia Thrombocytopenia (HCC) Hyponatremia Multiple open wounds of lower leg CULLEN (acute kidney injury) (HCC) Pulmonary hypertension (moderate/severe) ASSESSMENT & PLAN Macrocytic anemia and thrombocytopenia This process has been going on since December 2017 and therefore is unlikely to be an aggressi ve process such as a thrombotic microangiopathy/TTP. His anemia and thrombocytopenia is multifactorial, perhaps related to bone marrow suppressi on from chronic alcoholism, potential vitamin B12 and folic acid deficiency, and perhaps spl enic sequestration from splenomegaly resulting from liver cirrhosis. Elen' test is negative ruling out autoimmune hemolysis. My personal review of the patient's peripheral smear shows occasional fragmented red blood cells. Again, I doubt this is TTP. Upper endoscopy and colonoscopy are planned. Indirect bilirubinemia Liver disease can also result in both direct and indirect bilirubinemia. I am most suspici ous that this is the cause for his bilirubinemia rather than hemolysis. It is however possible that the patient may either have a low-grade hemolysis or ineffectiv e erythropoiesis. The patient does not have autoimmune hemolysis. B12 and folic acid has been back ordered from his initial labs on presentation. Rash May be related to thrombocytopenia versus vasculitis. The vasculitis workup has been order ed by Dr. Tam Code Status: Full Code Primary Care Physician: No primary care provider on file. Thank you for allowing me to participate in the care of this patient. I will continue to follow with you. Efraín Quevedo MD 07/19/2018 aher, Lee Salas MD - 07/18/2018 6:07 PM PDT Consult* by Lee Foley IV, MD at 07/18/181806 Author: Lee Foley IV, MD Service: Gastroenterology Author Type: Physician Filed: 07/19/18 1523 Date of Service: 07/18/181806 Status: Signed Full Service Supervisor: Lee Foley IV, MD (Physician) [facility] Service Initial Inpatient Consult Note Date of Visit: 07/18/2018 Primary Care Physician: No primary care provider on file. Reason for Consultation: Profound anemia, cirrhosis or edema Requesting Physician: Dr. Tam, Hospitalist History Obtained From: patient, chart review CHIEF COMPLAINT: Chief Complaint Patient presents with Abnormal Labs States hx liver cirrhosis, c/o low blood count and leg swelling, lesions on leg. Leg Swelling HISTORY OF PRESENT ILLNESS Doug Duran is a 53 y.o. male Patient with alcohol associated liver cirrhosis, hyperbilirubinemia and coagulopathy transf erred from [facility] due to the finding of profound anemia, open draining sores on hi s ankles and severe edema when seen by his PCP in follow-up. Patient adamantly denies any sort of hematemesis or melena. Has not seen any visible red bl ood in his stool. No dysphagia or frequent heartburn. He has never undergone EGD or colonosc opy. Patient claims jaundice became more pronounced over the last 4-6 weeks. He did have abnorma l liver parameters he can tell me during a prolonged hospitalization in January 2018 whe n admitted with severe pneumonia and sepsis apparently. He has continued to drink alcohol th ough insists not a large amount but difficult to quantify. Denies any severe confusion or di sorientation. REVIEW OF SYSTEMS Positive for: abdominal distention skin color change wounds leg swelling Otherwise negative for the following: Gastrointestinal: abdominal pain Diarrhea constipation blood in stool heartburn trouble swallowing Nausea Vomiting Anal pain Constitutional: Fever Chills Diaphoresis activity change appetite change fatigu e unexpected weight change HENT: Nosebleeds sore throat mouth sores neck pain neck stiffness Eyes: Eye pain visual disturbance Respiratory: Cough shortness of breath wheezing Cardiovascular: chest pain palpitations heart attack Genitourinary: Dysuria Urgency Frequency Hematuria difficulty urinating Musculoskeletal: Myalgias arthralgias joint swelling back pain gait problem Skin: Neurological: Dizziness weakness light-headedness Seizures syncope Severe he adaches strokes Endocrine: cold intolerance heat intolerance polydipsia. Allergic/Immunologic: severe food allergies immunocompromised state. Hematological: Adenopathy bruise/bleed easily Psychiatric/Behavioral: confusion pronounced nervousness/anxiety hallucinations sev ere depression ALLERGIES: Allergies Allergen Reactions Doxycycline Hives MEDICATIONS: No current facility-administered medications on file prior to encounter. No current outpatient prescriptions on file prior to encounter. Current Facility-Administered Medications Medication Dose Route Frequency Provider Last Rate Last Dose acetaminophen (TYLENOL) tablet 650 mg 650 mg Oral Q6H PRN Arlene Corrales MD Or acetaminophen (TYLENOL) suppository 650 mg 650 mg Rectal Q6H PRN Arlene Corrales MD albumin human 25 % solution 50 g 50 g Intravenous Daily Arlene Corrales MD Stopped at 0 07/18/18 0900 ceFAZolin in dextrose (ANCEF) IVPB 1 g 1 g Intravenous Q8H Jessee Tam MD 1 g a t 07/18/18 1748 [START ON 07/19/2018] folic acid 1 mg in sodium chloride (IV) 0.9 % 50 mL IVPB 1 mg Int ravenous Daily Jessee Tam MD furosemide (LASIX) injection 20 mg 20 mg Intravenous Daily Arlene Corrales MD 20 mg at 07/18/18 0757 furosemide (LASIX) injection 20 mg 20 mg Intravenous See Admin Instructions Jessee Tam MD 20 mg at 07/18/18 1629 HYDROcodone-acetaminophen (NORCO) 5-325 MG per tablet 1 tablet 1 tablet Oral Q4H PRN Onofre Corrales MD Or HYDROcodone-acetaminophen (NORCO) 10-325 MG per tablet 1 tablet 1 tablet Oral Q4H PRN Arlene Corrales MD LORazepam (ATIVAN) tablet 1-4 mg 1-4 mg Oral PRN Jessee Tam MD midodrine (PROAMATINE) tablet 5 mg 5 mg Oral BID Jessee Tam MD 5 mg at 8 1748 ondansetron (ZOFRAN-ODT) disintegrating tablet 4 mg 4 mg Oral Q6H PRN Arlene Corrales MD Or ondansetron (ZOFRAN) injection 4 mg 4 mg Intravenous Q6H PRN Arlene Corrales MD [START ON 07/19/2018] pantoprazole (PROTONIX) injection 40 mg 40 mg Intravenous QAM AC Jessee Tam MD phytonadione (AQUA-MEPHYTON) injection 5 mg 5 mg Subcutaneous Daily Judith Valle D 5 mg at 07/18/18 1025 pneumococcal 23-valent vaccine (PNEUMOVAX-23) latex free injection 0.5 mL 0.5 mL Intra muscular Once Immunization Arlene Corrales MD Stopped at 07/18/18 1752 polyethylene glycol (GLYCOLAX) packet 17 g 17 g Oral Daily PRN Arlene Corrales MD sodium chloride (PF) 0.9 % flush 10 mL 10 mL Intravenous Q8H Arlene Corrales MD sodium chloride 0.9 % flush 10 mL 10 mL Intravenous Q8H Vicente Hernandez PA-C thiamine (B-1) 100 mg in sodium chloride (IV) 0.9 % 50 mL IVPB 100 mg Intravenous Q24H eJssee Tam MD Scheduled Medications albumin human 50 g Intravenous Daily ceFAZolin 1 g Intravenous Q8H [START ON 07/19/2018] folic acid (FOLVITE) IVPB 1 mg Intravenous Daily furosemide 20 mg Intravenous Daily furosemide 20 mg Intravenous See Admin Instructions midodrine 5 mg Oral BID [START ON 07/19/2018] pantoprazole 40 mg Intravenous QAM AC phytonadione 5 mg Subcutaneous Daily pneumococcal 23-valent vaccine 0.5 mL Intramuscular Once Immunization sodium chloride (PF) 10 mL Intravenous Q8H sodium chloride 10 mL Intravenous Q8H thiamine (VITAMIN B1) IVPB 100 mg Intravenous Q24H Continuous Infusions PRN Medications acetaminophen OR acetaminophen, HYDROcodone-acetaminophen OR HYDROcodone-acetaminop hen, LORazepam, ondansetron OR ondansetron, polyethylene glycol History reviewed. No pertinent past medical history. History reviewed. No pertinent surgical history. History reviewed. No pertinent family history. Social History Social History Marital status: Single Spouse name: N/A Number of children: N/A Years of education: N/A Occupational History Not on file. Social History Main Topics Smoking status: Never Smoker Smokeless tobacco: Current User Comment: pt reports "1 chew a day." Alcohol use Yes Comment: 1 beer or 1 mixed drink per day. "I used to drink a couple beers 2-3 a day." Drug use: No Sexual activity: Not on file Other Topics Concern Not on file Social History Narrative No narrative on file History Smoking Status Never Smoker Smokeless Tobacco Current User Comment: pt reports "1 chew a day." History Alcohol Use Yes Comment: 1 beer or 1 mixed drink per day. "I used to drink a couple beers 2-3 a day." History Drug Use No History Sexual Activity Sexual activity: Not on file Temp: [97.1 F (36.2 C)-98.9 F (37.2 C)] 97.1 F (36.2 C) (07/18 1826) BP: (115-158)/(58-74) 156/72 (07/18 1826) Heart Rate: [68-85] 68 (07/18 1826) Resp: [14-20] 16 (07/18 1826) SpO2: [99 %-100 %] 100 % (07/18 1826) Height: [180.3 cm (5' 11")] 180.3 cm (5' 11") (07/17 2231) Weight: [101.8 kg (224 lb 8 oz)] 101.8 kg (224 lb 8 oz) (07/17 2231) BMI (Calculated): [31.4] 31.4 (07/17 2231) PHYSICAL EXAM Vital Signs: BP 141/67 (BP Location: Left upper arm) | Pulse 74 | Temp 97.1 F (36.2 C) (Axillary) | Resp 20 | Ht 1.803 m (5' 11") | Wt 101.8 kg (224 lb 8 oz) | SpO2 99% | BMI 31.31 kg/m Vital signs reviewed. General appearance: Appears well-developed and not in acute distress. Psychiatric: Appears to have normal mood and affect for given situation. Behavior appears to be appropriate. Judgment appears normal for patient. Neurological: Patient is alert and oriented. No focal neurologic deficits. No CN deficit s. HEENT: Head: Normocephalic and Atraumatic. Mouth/Throat: Oropharynx is clear and moist. Eyes: No conjunctiva injection. EOM Intact. PERRL. Obvious scleral icterus. Neck: Neck supple. No tracheal deviation present. No cervical adenopathy. Cardiovascular: Regular rate and rhythm, no murmur heard. Pulmonary/Chest: Clear bilaterally without wheezes. Abdominal: Normal active bowel sounds. Soft, no mass or hepatosplenomegaly. Nontender to palpation. No involuntary guarding or rebound. Musculoskeletal: Moves all limbs, No joint tenderness. Marked bilateral pedal edema. Skin: overt jaundice. Eschars lower extremities, lowest aspects in bandages which were not removed. DATA Labs: CBC: Lab Results Component Value Date WBC 5.69 07/18/2018 RBC 1.65 (L) 07/18/2018 HGB 6.4 (LL) 07/18/2018 HCT 17.4 (LL) 07/18/2018 MCV 106.8 (H) 07/18/2018 MCH 38.7 (H) 07/18/2018 MCHC 36.3 (H) 07/18/2018 RDW 68.7 (H) 07/18/2018 PLT 81 (L) 07/18/2018 MPV 7.7 07/18/2018 DIFFTYPE AUTOMATED 07/18/2018 CMP: Lab Results Component Value Date NA 135 07/18/2018 K 3.6 07/18/2018 CL 100 07/18/2018 CO2 25 07/18/2018 ANIONGAP 14 07/18/2018 GLUF 91 07/18/2018 BUN 32 (H) 07/18/2018 CREATININE 1.8 (H) 07/18/2018 BCR 18 07/18/2018 CA 7.7 (L) 07/18/2018 PROT 7.7 07/18/2018 ALB 3.0 (L) 07/18/2018 GLOB 4.8 07/18/2018 BILITOT 11.9 (H) 07/18/2018 ALP 91 07/18/2018 AST 64 (H) 07/18/2018 ALT 18 07/18/2018 EGFR 40 (L) 07/18/2018 PT/INR: Lab Results Component Value Date INR 1.8 07/17/2018 PTT: Lab Results Component Value Date APTT 42 (H) 07/17/2018 [APTT} Lipase: Lab Results Component Value Date LIPASE 395 (H) 07/17/2018 Lab Results Component Value Date CRP 0.7 (H) 07/18/2018 ESR 4 07/18/2018 Results for DOUG DURAN ( ) as of 07/18/2018 18:32 Ref. Range 07/17/2018 16:27 07/18/2018 06:44 07/18/2018 09:25 HGB Latest Ref Range: 13.2 - 17.0 g/dL 5.4 (LL) 6.4 (LL) 6.4 (LL) HCT Latest Ref Range: 39.0 - 50.0 % 14.6 (LL) 17.6 (LL) 17.4 (LL) Results for DOUG DURAN ( ) as of 07/18/2018 19:14 Ref. Range 07/17/2018 16:27 07/18/2018 06:44 07/18/2018 09:25 07/18/2018 09:30 TBIL Latest Ref Range: 0.1 - 1.5 mg/dL 10.6 (H) 11.8 (H) 11.9 (H) ALK PHOS Latest Ref Range: 35 - 115 U/L 124 (H) 96 91 AST Latest Ref Range: 10 - 45 U/L 73 (H) 63 (H) 64 (H) ALT Latest Ref Range: 10 - 65 U/L 21 19 18 Results for DOUG DURAN ( ) as of 07/18/2018 19:14 Ref. Range 07/17/2018 16:27 AMMONIA Latest Ref Range: <33 umol/L <10 Results for DOUG DURAN ( ) as of 07/18/2018 18:32 Ref. Range 07/18/2018 09:25 Hep A Total Ab Latest Ref Range: NON REACTIVE REACTIVE (A) HEP B SURFACE AG Latest Ref Range: NON REACTIVE NON REACTIVE HEP B CORE AB,TOTAL Latest Ref Range: NON REACTIVE NON REACTIVE HEP B SURFACE ANTIBODY Latest Ref Range: <1.00 IV <0.35 HEPATITIS C Latest Ref Range: NON REACTIVE NON REACTIVE HEPATITIS INTERP Unknown Current or past H... Diagnostic imaging: Impression 1. No gallstones or findings of acute cholecystitis or biliary dilatation. 2. Echogenic liver suggesting steatosis. 3. A right pleural effusion is seen. RADIA Electronically signed by Jonn Campa MD on Jul 17 2018 8:07PM Referring Provide r Line: [phone] ID: [id number] US Abdomen, limited [[id number]] Status: Final result EXAM: ABDOMEN ULTRASOUND LIMITED, RUQ EXAM DATE: 07/17/2018 07:36 PM. CLINICAL HISTORY: Abdominal swelling. COMPARISON: None. TECHNIQUE: Real-time scanning was performed with static images obtained. FINDINGS: Liver: The liver parenchyma appears echogenic. No focal liver lesion. The main portal vein measures 1.7 cm in diameter. 19.1 cm. Main portal vein flow: Hepatopetal. Gallbladder: Normal. No stones, wall thickening, or sonographic [place]'s sign. Biliary System: CBD measures 2.4 mm. No intrahepatic or extrahepatic ductal dilatation. Other: There is a right pleural effusion incidentally seen IMPRESSION: 1. No gallstones or findings of acute cholecystitis or biliary dilatation. 2. Echogenic liver suggesting steatosis. 3. A right pleural effusion is seen. RADIA Electronically signed by Jonn Campa MD on Jul 17 2018 8:07PM Referring Provider Line: [phone] ID: [id number] Data Review: Pertinent presentation and the emergency department notes reviewed other data not available to me at time of evaluation PROBLEM LIST Principal Problem: Alcoholic cirrhosis of liver with ascites (HCC) Active Problems: Abnormal blood coagulation profile ETOH abuse Hyperbilirubinemia Anemia Thrombocytopenia (HCC) Hyponatremia Multiple open wounds of lower leg CULLEN (acute kidney injury) (HCC) ASSESSMENT & PLAN Profound macrocytic anemia Alcohol associated cirrhosis Thrombocytopenia Coagulopathy with elevated INR Ongoing alcohol abuse Profound anemia may be multifactorial. Clearly component of chronic blood loss needs to be excluded. Iron studies were not performed prior to transfusion apparently. Sienna reaves EGD and colonoscopy in workup of this. Has evidence of probably acute on chronic liver failure and potentially a component of alco hol associated hepatitis. Severe anemia with hypoperfusion likely also affected a degree of liver dysfunction. No signs currently of encephalopathy. Due to probable active infection in his lower extremities and the profound anemia raising concern of bleeding would hold off on consideration of prednisolone for now. DF = 39 (hepatitis discriminant function for ProTime of 18 on 07/17/18) MELD score 28 MELDNa score 29 Recommendations 1. Agree with transfusion to hemoglobin above 7. 2. Once overall clinical picture stabilizes will pursue EGD and colonoscopy. 3. For now maintain on clear liquid diet in anticipation of colon prep probably tomorrow ev ening. Thank you for allowing me to participate in the care of this patient. I will continue to follow with you. Stephy Foely IV, M.D. [facility] 07/18/2018 This note was dictated using [employer] voice recognition software. Document was reviewed at ti me of dictation but [id number] errors may be present. Please call with any questions or c larifications. onversion Trans action, Provider Unknown - 07/18/2018 11:25 AM PDT Consults by Vicente Oakley RN at 07/18/18 1123 Author: Vicente Oakley RN Service: Wound/Ostomy Care Author Type: Registered Nurse Filed: 07/18/18 1130 Date of Service: 07/18/181124 Status: Signed Full Service Supervisor: Vicente Oakley RN (Registered Nurse) Consult Orders: 1. Wound Care Evaluation and Treat [[id number]] ordered by Arlene Corrales MD at 07/17/18 2112 [facility] Service: Wound Care Consult Note Hospital Day: LOS: 1 day Post-Op Day: * No surgery found * SUBJECTIVE Patient Summary: Wound care presents to evaluate bilateral ankle wounds OBJECTIVE Wound Ankle Bilateral cellulitis with skin breakdown (Active) Drainage Amount Scant 07/18/2018 11:23 AM Drainage Description Brown;Foul purulent 07/18/2018 11:23 AM Dressing Applied Other (Comment);Dry dressing (gauze and roll gauze);Foam;Michael wrap 8 11:23 AM State of Healing Eschar 07/18/2018 11:23 AM Site Assessment Dry;Swelling;Brown;Black 07/18/2018 11:23 AM Rita-wound Assessment Intact;Edema 07/18/2018 11:23 AM Size posterior ankles 07/18/2018 11:23 AM Non-staged Wound Description Partial thickness 07/18/2018 11:23 AM Treatments Cleansed;Site care 07/18/2018 11:23 AM Dressing Changed Changed 07/18/2018 11:23 AM Dressing Status Changed 07/18/2018 11:23 AM Number of days: 0 PROBLEM LIST Principal Problem: Alcoholic cirrhosis of liver with ascites (HCC) Active Problems: Abnormal blood coagulation profile ETOH abuse Hyperbilirubinemia Anemia Thrombocytopenia (HCC) Hyponatremia Multiple open wounds of lower leg CULLEN (acute kidney injury) (HCC) ASSESSMENT & PLAN The bilateral ankles look to be a combination of lymphedema, cellulitis and fluid retention due to liver failure. The posterior ankles have malodorous sloughing epithelial skin and I feel there is an infectious component as well. We will debride the sloughing tissue with Honey and follow up on Saturday. I feel likely 2 t reatments of this along with systemic antibiotics should be sufficient and then continue wit h just wet to dry dressings until healed. Thank you for allowing me to participate in the care of this patient. Please call if there are any additional questions. Vicente Oakley RN 11:26 AM 07/18/2018 docume nted in this encounter ED Notes Conversion Transaction, Provider Unknown - 07/17/2018 9:17 PM PDTFormatting of this note m ight be different from the original. ED Notes by Germaine Crandall RN at 07/17/182116 Author: Germaine Crandall RN Service: (none) Author Type: Registered Nurse Filed: 07/17/182116 Date of Service: 07/17/182116 Status: Signed Full Service Supervisor: Germaine Cradnall RN (Registered Nurse) Report given to Jovany Crandall RN 07/17/182116 onver arjnu Transaction, Provider Unknown - 07/17/2018 9:00 PM PDT ED Notes by Germaine Crandall RN at 07/17/182099 Author: Germaine Crandall RN Service: (none) Author Type: Registered Nurse Filed: 07/17/182099 Date of Service: 07/17/182099 Status: Signed Full Service Supervisor: Germaine Crandall RN (Registered Nurse) Pt eating at this time Germaine Crandall RN 07/17/182099 onver arjun Transaction, Provider Unknown - 07/17/2018 8:47 PM PDT ED Notes by Germaine Crandall RN at 07/17/182046 Author: Germaine Crandall RN Service: (none) Author Type: Registered Nurse Filed: 07/17/182047 Date of Service: 07/17/182046 Status: Signed Full Service Supervisor: Germaine Crandall RN (Registered Nurse) Per verbal order, Lasix to be given after the completion of 2 Unit of blood. Germaine Crandall RN 07/17/182047 onver arjun Transaction, Provider Unknown - 07/17/2018 8:31 PM PDT ED Notes by Germaine Crandall RN at 07/17/182030 Author: Germaine Crandall RN Service: (none) Author Type: Registered Nurse Filed: 07/17/182030 Date of Service: 07/17/182030 Status: Addendum Full Service Supervisor: Germaine Crandall RN (Registered Nurse) Related Notes: Original Note by Germaine Crandall RN (Registered Nurse) filed at 2030 Patient given instructions on how to obtain a clean catch urine specimen. Patient verbaliz ed understanding. Specimen cup and towelettes provided. Patient to bathroom to attempt col lection. Steady Gait noted Germaine Crandall RN 07/17/182030 onver arjun Transaction, Provider Unknown - 07/17/2018 8:19 PM PDT ED Notes by Germaine Crandall RN at 07/17/182018 Author: Germaine Crandall RN Service: (none) Author Type: Registered Nurse Filed: 07/17/182019 Date of Service: 07/17/182018 Status: Signed Full Service Supervisor: Germaine Crandall RN (Registered Nurse) Nutrition services called Germaine Crandall RN 07/17/182019 onver arjun Transaction, Provider Unknown - 07/17/2018 7:10 PM PDT ED Notes by Germaine Crandall RN at 07/17/181909 Author: Germaine Crandall RN Service: (none) Author Type: Registered Nurse Filed: 07/17/181909 Date of Service: 07/17/181909 Status: Signed Full Service Supervisor: Germaine Crandall RN (Registered Nurse) Pt wounds irrigated and dressed bilaterally Germaine Crandall RN 07/17/181909 onver arjun Transaction, Provider Unknown - 07/17/2018 5:39 PM PDT ED Notes by Germaine Crandall RN at 07/17/181738 Author: Germaine Crandall RN Service: (none) Author Type: Registered Nurse Filed: 07/17/181738 Date of Service: 07/17/181738 Status: Signed Full Service Supervisor: Germaine Crandall RN (Registered Nurse) Blood Bank called to confirm that the blood is being processed, Asya Verified that it is Germaine Crandall RN 07/17/181738 onver arjun Transaction, Provider Unknown - 07/17/2018 5:22 PM PDT ED Notes by Germaine Crandall RN at 07/17/181721 Author: Germaine Crandall RN Service: (none) Author Type: Registered Nurse Filed: 07/17/181723 Date of Service: 07/17/181721 Status: Signed Full Service Supervisor: Germaine Crandall RN (Registered Nurse) Called Asya with [facility] to see if they see the type and crossmatch order. She states she mcintyre sn't. Vicente JOHNSON notified Germaine Crandall RN 07/17/181723 onver arjun Transaction, Provider Unknown - 07/17/2018 5:18 PM PDT ED Notes by Germaine Crandall RN at 07/17/181717 Author: Germaine Crandall RN Service: (none) Author Type: Registered Nurse Filed: 07/17/181727 Date of Service: 07/17/181717 Status: Signed Full Service Supervisor: Germaine Crandall RN (Registered Nurse) Pt on radiation monitor with continuous pulse ox Germaine Crandall RN 07/17/181727 orter , Vicente Buchanan PA-C - 07/17/2018 5:04 PM PDT ED Provider Notes by Vicente Hernandez PA-C at 07/17/181703 Author: Vicente Hernandez PA-C Service: Emergency Department Author Type: Physician Eladio gilliam Filed: 07/18/18 1650 Date of Service: 07/17/181703 Status: Attested Full Service Supervisor: Vicente Hernandez PA-C (Physician Senior Support Engineer) Cosigner: Louis Yañez DO at 06/22 07/08 0302 Attestation signed by Louis Yañez DO at 07/19/18301 I have reviewed the note and supervised the mid-level provider. Procedures [facility] Department of Emergency Medicine History of Present Illness Patient Identification Doug Duran is a 53 y.o. male. Patient information was obtained from patient. History/Exam limitations: none. Patient presented to the Emergency Department by: Car Chief Complaint Chief Complaint Patient presents with Abnormal Labs States hx liver cirrhosis, c/o low blood count and leg swelling, lesions on leg. Leg Swelling Patient is a 53 y.o. male with history significant for alcoholic liver cirrhosis who prese nts with complaint of bilateral lower leg swelling x 2 weeks, with sores, and abnormal Hgb/H ct today at PCP evaluation (Dr Frankie Medrano). Patient reports a red [petechial] rash to lower extremities and torso, recurrent; patient states the rash "comes and goes" today. He denies marked increase in abdominal girth. Denies abdominal pain, shortness of breath, n ausea, vomiting or diaphoresis. Denies fever or chills. He is alert and oriented. 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 No LMP for male patient. PCP: Frankie (LAVON Medrano) History reviewed. No pertinent past medical history. History reviewed. No pertinent surgical history. Prior to Admission medications Not on File Allergies Allergen Reactions Doxycycline Hives Social History Social History Marital status: Single Spouse name: N/A Number of children: N/A Years of education: N/A Occupational History Not on file. Social History Main Topics Smoking status: Never Smoker Smokeless tobacco: Current User Comment: pt reports "1 chew a day." Alcohol use Yes Comment: 1 beer or 1 mixed drink per day. "I used to drink a couple beers 2-3 a day." Drug use: No Sexual activity: Not on file Other Topics Concern Not on file Social History Narrative No narrative on file History reviewed. No pertinent family history. ROS Review of Systems Review of Systems Constitutional: Negative for chills and fever. HENT: Negative for sore throat. Respiratory: Negative for shortness of breath. Cardiovascular: Negative for chest pain. Gastrointestinal: Negative for abdominal pain, constipation, diarrhea, nausea and vomiting. Genitourinary: Negative for dysuria. Musculoskeletal: Negative for myalgias. Bilateral lower extremity swelling Skin: Positive for rash. Skin lesions both lower extremities. All other systems reviewed and are negative. Physical Exam BP 139/65 | Pulse 88 | Temp 98.1 F (36.7 C) | Resp 14 | Wt 102.5 kg (225 lb 15.5 oz ) | SpO2 100% Pulse Oximetry interpretation: Normal General: Alert, in no apparent distress Eyes: Normal inspection, pupils equal and round, icteric ENT: Mucosa moist, ears and nose grossly normal Neck: Normal inspection Cardiovascular: Rate and rhythm normal No RMG Respiratory: Breath sounds normal bilaterally, no rhonchi, wheezes, rales or rubs. Abdomen: Soft, obese, mildly ascitic, non-tender, non-distended No guarding; no caput medusae noted. Skin: Color normal, warm and dry; marked jaundice noted. Purpuric rash to upper and lower extremities and also to torso. Neuro: No apparent motor or sensory deficit. Normal speech and affect. AAO. Extremities: CSM present and normal x 4 4+ edema bilateral lower extremities, with crusted wounds, some weeping, to distal extremit ies. Negative asterixis. Medical Decision Making and Emergency Department Course ED Department Course Impression: Severe anemia secondary to alcoholic liver cirrhosis and failure, ascites, lowe r extremity edema with skin lesions. Differential would include but is not limited to: Severe anemia, infection, hepatic encepha lopathy, other. Will proceed with work-up and symptom control and reassess. ED Course as of Jul 18 1650 Thelma Jul 17, 2018 1659 Hgb 5.4 Type and cross 3 units ordered. Will plan for transfusion and admission. Other labs are pending. 1732 CMP: CO2 22, gap 16, glucose 154, serum creat a 2.1 with an EGFR of 33. Alk phos eleva jeannette, T bilirubin elevated.CBC: No leukocytosis, no bands. Patient is anemic with hemoglobin of 5.4 as noted above. 1733 Ordered type and cross 3 units, wound irrigation and dressing. We will plan to admit. 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 1734 PTT elevated/prolonged at 42. 1851 Elevated alk phos, bilirubin and lipase. Discussed Dr. Crofts, recommends ultrasound t o exclude biliary stone prior to admission. Disposition: consulted with Dr Corrales, hospitalist. Admit hospitalist service. Note: This document was created using speech recognition software. It has been reviewed for content, but some "sound-alike" errors may still exist. Please contact the author directly for clarification if needed. Medications sodium chloride 0.9 % flush 10 mL (not administered) acetaminophen (TYLENOL) tablet 650 mg (not administered) Or acetaminophen (TYLENOL) suppository 650 mg (not administered) ondansetron (ZOFRAN-ODT) disintegrating tablet 4 mg (not administered) Or ondansetron (ZOFRAN) injection 4 mg (not administered) polyethylene glycol (GLYCOLAX) packet 17 g (not administered) sodium chloride (PF) 0.9 % flush 10 mL (not administered) HYDROcodone-acetaminophen (NORCO) 5-325 MG per tablet 1 tablet (not administered) Or HYDROcodone-acetaminophen (NORCO) 10-325 MG per tablet 1 tablet (not administered) albumin human 25 % solution 50 g (not administered) furosemide (LASIX) injection 20 mg (not administered) pneumococcal 23-valent vaccine (PNEUMOVAX-23) latex free injection 0.5 mL (not administered ) ceFAZolin in dextrose (ANCEF) IVPB 1 g (not administered) thiamine (B-1) 100 mg in sodium chloride (IV) 0.9 % 50 mL IVPB (not administered) folic acid 1 mg in sodium chloride (IV) 0.9 % 50 mL IVPB (not administered) pantoprazole (PROTONIX) injection 40 mg (not administered) phytonadione (AQUA-MEPHYTON) injection 5 mg (not administered) midodrine (PROAMATINE) tablet 5 mg (not administered) LORazepam (ATIVAN) tablet 1-4 mg (not administered) furosemide (LASIX) injection 20 mg (not administered) furosemide (LASIX) injection 20 mg (not administered) calcium gluconate 1,000 mg in dextrose 5 % 100 mL IVPB (not administered) Records Reviewed Old medical records. Labs & Radiology Results Laboratory Evaluation Results Procedure Component Value Ref Range Date/Time Type and screen [[id number]] Collected: 07/17/18 2847 Order Status: Completed Specimen: Blood Updated: 07/18/18 2948 ABO/RH(D) A POSITIVE ANTIBODY SCREEN NEGATIVE ARM BAND NUMBER [id number] UNIT NUMBER [id number] BLOOD COMPONENT TYPE LEUKODEPLETED PC UNIT DIVISION 00 STATUS OF UNIT ISSUED,FINAL TRANSFUSION STATUS OK TO TRANSFUSE CROSSMATCH RESULT COMPATIBLE UNIT NUMBER [id number] BLOOD COMPONENT TYPE LEUKODEPLETED PC UNIT DIVISION 00 STATUS OF UNIT ISSUED,FINAL TRANSFUSION STATUS OK TO TRANSFUSE CROSSMATCH RESULT COMPATIBLE UNIT NUMBER [id number] BLOOD COMPONENT TYPE LEUKODEPLETED PC UNIT DIVISION 00 STATUS OF UNIT ISSUED,FINAL TRANSFUSION STATUS OK TO TRANSFUSE CROSSMATCH RESULT COMPATIBLE UNIT NUMBER [id number] BLOOD COMPONENT TYPE LEUKODEPLETED PC UNIT DIVISION 00 STATUS OF UNIT ISSUED TRANSFUSION STATUS OK TO TRANSFUSE CROSSMATCH RESULT -- COMPATIBLE Testing performed at [facility] [place] [facility];[address] [place] [address];[place] [address] UNIT NUMBER [id number] BLOOD COMPONENT TYPE LEUKODEPLETED PC UNIT DIVISION 00 STATUS OF UNIT ISSUED TRANSFUSION STATUS OK TO TRANSFUSE CROSSMATCH RESULT COMPATIBLE Urinalysis (reflex to microscopic/reflex to culture) [[id number]] (Abnormal) Collected: 07/17/182038 Order Status: Completed Specimen: Urine, Clean Catch Updated: 07/17/182116 COLOR UA YELLOW CLARITY HAZY Specific [place], UA 1.006 1.002 - 1.030 LEUKOCYTE ESTERASE NEGATIVE NEGATIVE NITRITE NEGATIVE NEGATIVE UROBILINOGEN 2.0 (H) <1.1 mg/dL PROTEIN NEGATIVE NEGATIVE mg/dL PH,URINE 5.0 5.0 - 8.0 BLOOD LARGE (A) NEGATIVE KETONES NEGATIVE NEGATIVE mg/dL BILIRUBIN NEGATIVE NEGATIVE GLUCOSE NEGATIVE NEGATIVE mg/dL WBC 3-5 0 - 5 /hpf RBC 6-10 0 - 2 /hpf BACTERIA 1+ (A) NONE SEEN EPITHELIAL 6-10 /lpf CBC W/Auto Diff (Reflex to Manual) [[id number]] (Abnormal) Collected: 07/17/18 1627 Order Status: Completed Specimen: Blood Updated: 07/17/181742 WBC 6.17 3.80 - 11.00 K/uL RBC 1.28 (L) 4.20 - 5.70 M/uL HGB 5.4 (LL) 13.2 - 17.0 g/dL HCT 14.6 (LL) 39.0 - 50.0 % MCV 114.0 (H) 80.0 - 100.0 fl MCH 41.9 (H) 27.0 - 34.0 pg MCHC 36.7 (H) 32.0 - 35.5 g/dL RDW SD 54.3 (H) 37 - 53 fl PLT 93 (L) 150 - 400 K/uL MPV 7.9 fl DIFF TYPE AUTOMATED NEUTROPHILS 64.56 % LYMPHOCYTES 19.98 % MONOCYTES 9.40 % EOSINOPHILS 5.67 % BASOPHILS 0.39 % NEUTROPHILS ABS 4.11 1.90 - 7.40 K/uL LYMPHOCYTES ABS 1.27 1.00 - 3.90 K/uL MONOCYTES ABS 0.60 0.00 - 0.80 K/uL EOSINOPHILS ABS 0.36 0.00 - 0.50 K/uL BASOPHILS ABS 0.03 0.00 - 0.10 K/uL MORPHOLOGY 1+ Platelet Estimate DECREASED Diff Comment SLIDE SCANNED, AGREES WITH AUTOMATED RESULTS. Ammonia Level [[id number]] Collected: 07/17/181626 Order Status: Completed Specimen: Blood Updated: 07/17/18 1730 AMMONIA <10 <33 umol/L PTT [[id number]] (Abnormal) Collected: 07/17/181626 Order Status: Completed Specimen: Blood Updated: 07/17/18 1725 APTT 42 (H) 23 - 32 seconds Protime-INR [[id number]] Collected: 07/17/181626 Order Status: Completed Specimen: Blood Updated: 07/17/18 1725 INR 1.8 Comprehensive metabolic panel [[id number]] (Abnormal) Collected: 07/17/181626 Order Status: Completed Specimen: Blood Updated: 07/17/18 1716 SODIUM 133 (L) 135 - 145 mmol/L POTASSIUM 3.5 3.5 - 4.9 mmol/L CHLORIDE 98 (L) 99 - 109 mmol/L CO2 22 (L) 23 - 32 mmol/L ANION GAP AGAP 16 5 - 20 mmol/L GLUCOSE 154 (H) 65 - 99 mg/dL BUN 34 (H) 8 - 25 mg/dL CREATININE 2.1 (H) 0.70 - 1.30 mg/dL BUN/CREAT 16 CALCIUM 7.8 (L) 8.5 - 10.5 mg/dL TOTAL PROTEIN 8.1 6.3 - 8.2 g/dL Albumin 2.5 (L) 3.6 - 5.0 g/dL GLOBULIN 5.6 (H) 1.3 - 4.9 g/dL A/G 0.4 (L) 1.0 - 2.4 TBIL 10.6 (H) 0.1 - 1.5 mg/dL ALK PHOS 124 (H) 35 - 115 U/L AST 73 (H) 10 - 45 U/L ALT 21 10 - 65 U/L EGFR 33 (L) >60 mL/min/1.73m2 Amylase [[id number]] Collected: 07/17/181626 Order Status: Completed Specimen: Blood Updated: 07/17/181715 AMYLASE 50 25 - 115 U/L Lipase [[id number]] (Abnormal) Collected: 07/17/181626 Order Status: Completed Specimen: Blood Updated: 07/17/181715 LIPASE 395 (H) 73 - 393 U/L I personally reviewed the lab results and radiographic findings, if any, and they have been posted to the chart. Pertinent positive and negative findings have been addressed appropria tely. Radiology and EKG Evaluation Imaging Results XR chest PA and lateral (Final result) Result time 07/17/18 21:22:32 Final result by Dipesh Soler DO (07/17/18 21:22:32) Impression: 1. Cardiomegaly and mild central pulmonary venous congestion. 2. Suspect small left pleural effusion. Narrative: DOUG Judith LULU 1965 53 years Male XR CHEST 2 VIEW FRONTAL AND LATERAL 07/17/2018 9:12 PM INDICATION: Shortness of breath COMPARISON: None. TECHNIQUE: Two view chest, PA and lateral views FINDINGS: Mild to moderate cardiac enlargement. Mild prominence central pulmonary vascular markings. Mild blunting of the left costophrenic angle on the lateral film. Slight asymmetri c lucent area at the left costophrenic angle on the frontal film, of uncertain significance. US Abdomen, limited (Final result) Result time 07/17/18 20:07:07 Final result by Jonn Campa MD (07/17/18 20:07:07) Impression: 1. No gallstones or findings of acute cholecystitis or biliary dilatation. 2. Echogenic liver suggesting steatosis. 3. A right pleural effusion is seen. RADIA Electronically signed by Jonn Campa MD on Jul 17 2018 8:07PM Referring Provider Line: [phone] ID: [id number] Narrative: EXAM: ABDOMEN ULTRASOUND LIMITED, RUQ EXAM DATE: 07/17/2018 07:36 PM. CLINICAL HISTORY: Abdominal swelling. COMPARISON: None. TECHNIQUE: Real-time scanning was performed with static images obtained. FINDINGS: Liver: The liver parenchyma appears echogenic. No focal liver lesion. The main portal vein measures 1.7 cm in diameter. 19.1 cm. Main portal vein flow: Hepatopetal. Gallbladder: Normal. No stones, wall thickening, or sonographic [place]'s sign. Biliary System: CBD measures 2.4 mm. No intrahepatic or extrahepatic ductal dilatation. Other: There is a right pleural effusion incidentally seen Preliminary result by Jonn Campa MD (07/17/18 20:06:04) Impression: 1. No gallstones or findings of acute cholecystitis or biliary dilatation. 2. Echogenic liver suggesting steatosis. 3. A right pleural effusion is seen. RADIA Read by Jonn Campa MD on Jul 17 2018 8:06PM Diagnosis & Disposition ED Diagnoses Final diagnoses Anemia, unspecified type Hyperbilirubinemia CULLEN (acute kidney injury) (HCC) Thrombocytopenia (HCC) Disposition: ED Disposition ED Disposition Condition Comment Admit/Observation Bed request special needs: None Diagnosis?: marked anemia, marked LE edema and lesions, liver cirrhosis. Follow-up Information None Discharge Medications: There are no discharge medications for this patient. Vicente Hernandez PA-C 07/18/18 1650 Louis Yañez DO 07/19/18 0302 onversion Transac tion, Provider Unknown - 07/17/2018 4:20 PM PDTFormatting of this note might be different f rom the original. ED Notes by Germaine Crandall RN at 07/17/18 5873 Author: Germaine Crandall RN Service: (none) Author Type: Registered Nurse Filed: 07/17/18 5069 Date of Service: 07/17/181619 Status: Signed Full Service Supervisor: Germaine Crandall RN (Registered Nurse) Pt legs elevated to the bed. Germaine Crandall RN 07/17/18 1645 onver arjun Transaction, Provider Unknown - 07/17/2018 4:07 PM PDT ED Notes by Germaine Crandall RN at 07/17/18 1607 Author: Germaine Crandall RN Service: (none) Author Type: Registered Nurse Filed: 07/17/18 1607 Date of Service: 07/17/18 160 Status: Signed Full Service Supervisor: Germaine Crandall RN (Registered Nurse) Pt was able to ambulate from waiting room to room, steady gait noted Germaine Crandall RN 07/17/18 1607 docume nted in this encounter Miscellaneous Notes Plan of Care - Conversion Transaction, Provider Unknown - 07/24/2018 2:52 PM PDT Plan of Care by Jonathon Estrella RN at 07/24/18 9018 Author: Jonathon Estrella RN Service: (none) Author Type: Registered Nurse Filed: 07/24/18 1521 Date of Service: 07/24/181451 Status: Signed Full Service Supervisor: Jonathon Estrella RN (Registered Nurse) Problem: Pain Goal: Patient's pain/discomfort is manageable Assess and monitor patient's pain using appropriate pain scale. Collaborate with interdisci plinary team and initiate plan and interventions as ordered. Re-assess patient's pain level approximately 1-2 hours after pain management intervention. Premedicate as needed. Outcome: Adequate for Discharge No C/O pain Problem: Safety Goal: Patient will be injury free during hospitalization Assess and monitor vitals signs, neurological status including level of consciousness and o rientation. Assess patient's risk for falls and implement fall prevention plan of care and i nterventions per hospital policy. Ensure arm band on, uncluttered walking paths in room, adequate room lighting, call light a nd overbed table within reach, bed in low position, wheels locked, side rails up per policy, and non-skid footwear provided. Outcome: Adequate for Discharge No injuries this admission Problem: Daily Care Goal: Daily care needs are met Assess and monitor ability to perform self care and identify potential discharge needs. Outcome: Adequate for Discharge All daily needs adequately met per staff and Pt. Problem: Psychosocial Needs Goal: Demonstrates ability to cope with hospitalization/illness Assess and monitor patients ability to cope with his/her illness. Outcome: Progressing Pt glad and excited to go home. Problem: Discharge Barriers Goal: Patient's discharge needs are met Collaborate with interdisciplinary team and initiate plans and interventions as needed. Outcome: Progressing No barriers to DC. Prescriptions and appointments set. All DC needs met. lan o f Care - Conversion Transaction, Provider Unknown - 07/23/2018 11:52 PM PDTFormatting of thi s note might be different from the original. Plan of Care by Yessica Saxena RN at 07/23/182351 Author: Yessica Saxena RN Service: (none) Author Type: Registered Nurse Filed: 07/23/182351 Date of Service: 07/23/182351 Status: Signed Full Service Supervisor: Yessica Saxena RN (Registered Nurse) Problem: Pain Goal: Patient's pain/discomfort is manageable Assess and monitor patient's pain using appropriate pain scale. Collaborate with interdisci plinary team and initiate plan and interventions as ordered. Re-assess patient's pain level approximately 1-2 hours after pain management intervention. Premedicate as needed. Outcome: Progressing Pt denies having pain at this time. Problem: Discharge Barriers Goal: Patient's discharge needs are met Collaborate with interdisciplinary team and initiate plans and interventions as needed. Outcome: Progressing Intervention: Involve patient/career and technology education teacher in discharge planning process Pt aware of plan of care of monitoring H and H. lan o f Care - Conversion Transaction, Provider Unknown - 07/23/2018 4:59 PM PDTFormatting of thi s note might be different from the original. Plan of Care by Jonathon Estrella RN at 07/23/181658 Author: Jonathon Estrella RN Service: (none) Author Type: Registered Nurse Filed: 07/23/181658 Date of Service: 07/23/181658 Status: Signed Full Service Supervisor: Jonathon Estrella RN (Registered Nurse) Problem: Pain Goal: Patient's pain/discomfort is manageable Assess and monitor patient's pain using appropriate pain scale. Collaborate with interdisci plinary team and initiate plan and interventions as ordered. Re-assess patient's pain level approximately 1-2 hours after pain management intervention. Premedicate as needed. Outcome: Progressing No C/O pain at this time. Problem: Safety Goal: Patient will be injury free during hospitalization Assess and monitor vitals signs, neurological status including level of consciousness and o rientation. Assess patient's risk for falls and implement fall prevention plan of care and i nterventions per hospital policy. Ensure arm band on, uncluttered walking paths in room, adequate room lighting, call light a nd overbed table within reach, bed in low position, wheels locked, side rails up per policy, and non-skid footwear provided. Outcome: Progressing Pt able to call for needs. Safety measures in place. Pt stable. Problem: Daily Care Goal: Daily care needs are met Assess and monitor ability to perform self care and identify potential discharge needs. Outcome: Progressing Pt calls appropriately and rounded on hourly for needs. Problem: Psychosocial Needs Goal: Demonstrates ability to cope with hospitalization/illness Assess and monitor patients ability to cope with his/her illness. Outcome: Progressing Pt trying to keep a PMA. Compliant with all therapies. Problem: Discharge Barriers Goal: Patient's discharge needs are met Collaborate with interdisciplinary team and initiate plans and interventions as needed. Outcome: Progressing Monitoring labs lan o f Care - Conversion Transaction, Provider Unknown - 07/23/2018 12:41 AM PDTFormatting of thi s note might be different from the original. Plan of Care by Yessica Saxena RN at 07/23/1840 Author: Yessica Saxena RN Service: (none) Author Type: Registered Nurse Filed: 07/23/1840 Date of Service: 07/23/1840 Status: Signed Full Service Supervisor: Yessica Saxena RN (Registered Nurse) Problem: Pain Goal: Patient's pain/discomfort is manageable Assess and monitor patient's pain using appropriate pain scale. Collaborate with interdisci plinary team and initiate plan and interventions as ordered. Re-assess patient's pain level approximately 1-2 hours after pain management intervention. Premedicate as needed. Outcome: Progressing Pt denies having pain at this time. Will continue to monitor. Problem: Safety Goal: Patient will be injury free during hospitalization Assess and monitor vitals signs, neurological status including level of consciousness and o rientation. Assess patient's risk for falls and implement fall prevention plan of care and i nterventions per hospital policy. Ensure arm band on, uncluttered walking paths in room, adequate room lighting, call light a nd overbed table within reach, bed in low position, wheels locked, side rails up per policy, and non-skid footwear provided. Outcome: Progressing Arm band on, bed in low position with wheels locked, and call light and bedside table withi n reach. lan o f Care - Conversion Transaction, Provider Unknown - 07/22/2018 1:48 PM PDTFormatting of thi s note might be different from the original. Plan of Care by Jonathon Estrella RN at 07/22/181347 Author: Jonathon Estrella RN Service: (none) Author Type: Registered Nurse Filed: 07/22/181347 Date of Service: 07/22/181347 Status: Signed Full Service Supervisor: Jonathon Estrella RN (Registered Nurse) Problem: Pain Goal: Patient's pain/discomfort is manageable Assess and monitor patient's pain using appropriate pain scale. Collaborate with interdisci plinary team and initiate plan and interventions as ordered. Re-assess patient's pain level approximately 1-2 hours after pain management intervention. Premedicate as needed. Outcome: Progressing So far, pain well controlled by current measures. Problem: Safety Goal: Patient will be injury free during hospitalization Assess and monitor vitals signs, neurological status including level of consciousness and o rientation. Assess patient's risk for falls and implement fall prevention plan of care and i nterventions per hospital policy. Ensure arm band on, uncluttered walking paths in room, adequate room lighting, call light a nd overbed table within reach, bed in low position, wheels locked, side rails up per policy, and non-skid footwear provided. Outcome: Progressing Pt stable and independent in room. Room well lit, and obstructions minimized. Pt calls ap propriately and rounded on hourly Problem: Daily Care Goal: Daily care needs are met Assess and monitor ability to perform self care and identify potential discharge needs. Outcome: Progressing Calls appropriately and rounded on hourly Problem: Psychosocial Needs Goal: Demonstrates ability to cope with hospitalization/illness Assess and monitor patients ability to cope with his/her illness. Outcome: Progressing Pt in a good mood, and compliant with all therapies. Problem: Discharge Barriers Goal: Patient's discharge needs are met Collaborate with interdisciplinary team and initiate plans and interventions as needed. Outcome: Progressing No barriers to DC apparent. lan o f Care - Conversion Transaction, Provider Unknown - 07/22/2018 1:20 AM PDTFormatting of thi s note might be different from the original. Plan of Care by Nagi Lee RN at 07/22/18119 Author: Nagi Lee RN Service: (none) Author Type: Registered Nurse Filed: 07/22/18119 Date of Service: 07/22/18119 Status: Signed Full Service Supervisor: Nagi Lee RN (Registered Nurse) Problem: Safety Goal: Patient will be injury free during hospitalization Assess and monitor vitals signs, neurological status including level of consciousness and o rientation. Assess patient's risk for falls and implement fall prevention plan of care and i nterventions per hospital policy. Ensure arm band on, uncluttered walking paths in room, adequate room lighting, call light a nd overbed table within reach, bed in low position, wheels locked, side rails up per policy, and non-skid footwear provided. Outcome: Progressing Pt ambulating in room independently and calls appropriately. Problem: Daily Care Goal: Daily care needs are met Assess and monitor ability to perform self care and identify potential discharge needs. Outcome: Progressing Able to perform self care independently. lan o f Care - Conversion Transaction, Provider Unknown - 07/21/2018 5:00 PM PDTFormatting of thi s note might be different from the original. Plan of Care by Dayna Santillan RN at 07/21/18 9660 Author: Dayna Santillan RN Service: (none) Author Type: Registered Nurse Filed: 07/21/181699 Date of Service: 07/21/181699 Status: Signed Full Service Supervisor: Dayna Santillan RN (Registered Nurse) Problem: Pain Goal: Patient's pain/discomfort is manageable Assess and monitor patient's pain using appropriate pain scale. Collaborate with interdisci plinary team and initiate plan and interventions as ordered. Re-assess patient's pain level approximately 1-2 hours after pain management intervention. Premedicate as needed. Outcome: Progressing Denies pain at this time. Calls appropriately. Will continue to monitor. Dayna Santillan RN Problem: Daily Care Goal: Daily care needs are met Assess and monitor ability to perform self care and identify potential discharge needs. Outcome: Progressing Pt independent with ADL's. Pt state he will call if assistance is needed. Will continue to monitor. Dayna Santillan RN Problem: Compromised Skin Integrity Goal: Skin integrity is maintained or improved Assess and monitor skin integrity. Identify patients at risk for skin breakdown on admissio n and per policy. Collaborate with interdisciplinary team and initiate plans and interventio ns as needed. Outcome: Progressing Wound care/ dressing done today by this RN. Pt seen by operations mgr. Dayna Santillan RN lan o f Care - Conversion Transaction, Provider Unknown - 07/21/2018 1:05 AM PDTFormatting of thi s note might be different from the original. Plan of Care by Pal Powers RN at 07/21/18104 Author: Pal Powers RN Service: (none) Author Type: Registered Nurse Filed: 07/21/18105 Date of Service: 07/21/18104 Status: Addendum Full Service Supervisor: Pal Powers RN (Registered Nurse) Related Notes: Original Note by Pal Powers RN (Registered Nurse) filed at 07/21/18 0 105 Problem: Pain Goal: Patient's pain/discomfort is manageable Assess and monitor patient's pain using appropriate pain scale. Collaborate with interdisci plinary team and initiate plan and interventions as ordered. Re-assess patient's pain level approximately 1-2 hours after pain management intervention. Premedicate as needed. Outcome: Progressing Patient has denied pain this shift. Problem: Daily Care Goal: Daily care needs are met Assess and monitor ability to perform self care and identify potential discharge needs. Outcome: Progressing Patient has been resting quietly in bed with his eyes closed tonight. VSS, afebrile, A/O x 4, did have a slight amount of agitation when awoken tonight, on room air and able to ambula te independently in room. End of shift audit completed. lan o f Care - Conversion Transaction, Provider Unknown - 07/20/2018 4:02 PM PDTFormatting of thi s note might be different from the original. Plan of Care by Elliott Lee RN at 07/20/18 160 Author: Elliott Lee RN Service: (none) Author Type: Registered Nurse Filed: 07/20/181601 Date of Service: 07/20/181601 Status: Signed Full Service Supervisor: Elliott Lee RN (Registered Nurse) Problem: Pain Goal: Patient's pain/discomfort is manageable Assess and monitor patient's pain using appropriate pain scale. Collaborate with interdisci plinary team and initiate plan and interventions as ordered. Re-assess patient's pain level approximately 1-2 hours after pain management intervention. Premedicate as needed. Outcome: Progressing Pt states pain is well managed at this time.ELLIOTT LEE RN Problem: Safety Goal: Patient will be injury free during hospitalization Assess and monitor vitals signs, neurological status including level of consciousness and o rientation. Assess patient's risk for falls and implement fall prevention plan of care and i nterventions per hospital policy. Ensure arm band on, uncluttered walking paths in room, adequate room lighting, call light a nd overbed table within reach, bed in low position, wheels locked, side rails up per policy, and non-skid footwear provided. Outcome: Progressing Bed in lowest position, call light in place, pt is alert and oriented and able to make need s know.ELLIOTT LEE RN lan o f Ramila - Lee Foley MD - 07/20/2018 12:58 PM PDTFormatting of this note might be d ifferent from the original. Plan of Care by Lee Foley IV, MD at 07/20/188 Author: Lee Foley IV, MD Service: Gastroenterology Author Type: Physician Filed: 07/20/18 1300 Date of Service: 07/20/188 Status: Signed Full Service Supervisor: Lee Foley IV, MD (Physician) Procedure report listed under Procedures in Chart Review EGD and colonoscopy normal. Advance diet at this point. Again emphasize alcohol abstinence and offer alcohol rehab program. Could go home from GI standpoint once other medical issues felt stabilized. iscellaneous - Alaina, Lee Salas MD - 07/20/2018 12:20 PM PDT D-C Instructions Provation signed by at 07/20/181253 Author: Lee Foley IV, MD Service: Gastroenterology Author Type: Physician Filed: 07/20/184 Date of Service: 07/20/18 1220 Status: Signed Full Service Supervisor: Lee Foley IV, MD (Physician) Patient Instructions After Colonoscopy Patient: Doug Duran Procedure Date: Friday, July 20, 2018 Attending MD: Lee Foley IV; You had a Colonoscopy today. Your doctor made the following findings: - The entire examined colon is normal on direct and retroflexion views. - The examined portion of the ileum was normal. - No specimens collected. Your doctor recommends: Resume your previous diet. Continue your present medications. Your physician has recommended a repeat colonoscopy in 10 years for screening purposes. Consider capsule endoscopy for small bowel evaluation later as an outpatient. CALL YOUR PHYSICIAN IF YOU EXPERIENCE: < Any unusual abdominal pain. < Any shoulder pain. < Temperature above 100 degrees Fahrenheit < Rectal bleeding in excess of 2 Tablespoons DIET: If you have undergone diagnostic colonosocpy, you may resume your regular diet immediately after the procedure unless otherwise instructed by your doctor. CAUTIONS: The medications used to make the examination more comfortable for you will be acting in your body for up to 24 hours. Therefore: < DO NOT drive a car or operate machinery or power tools. < DO NOT drink alcohol or take tranquillizers or sleeping pills. < DO NOT make major personal decisions. This includes signing legal documents and/or contracts. MEDICATIONS: Most medications can be safely resumed once you can eat. The exceptions would be tranquillizers and sleeping pills. Lee Foley IV, 07/20/2018 12:54:15 PM This report has been signed electronically. [email or web address] Foley, Lee Salas MD - 07/20/2018 11:47 AM PDT D-C Instructions Provation signed by at 07/20/18 5803 Author: Lee Foley IV, MD Service: Gastroenterology Author Type: Physician Filed: 07/20/18 1219 Date of Service: 07/20/18 1147 Status: Signed Full Service Supervisor: Lee Foley IV, MD (Physician) Patient Instructions After Upper GI endoscopy Patient: Doug Duran Procedure Date: Friday, July 20, 2018 Attending MD: Lee Foley IV; You had a Upper GI endoscopy today. Your doctor made the following findings: - Normal duodenal bulb, second portion of the duodenum and third portion of the duodenum. Biopsied. - Normal stomach. No evidence of gastric varices or other potential etiologies for chronic blood loss. - Normal esophagus. No evidence of esophageal varices or other potential etiologies for chronic blood loss Your doctor recommends: Continue your present medications. We are waiting for your pathology results. A repeat upper endoscopy exam is not recommended. Resume your previous diet. CALL YOUR PHYSICIAN IF YOU EXPERIENCE: < Any unusual abdominal pain. < Any shoulder pain. < Temperature above 100 degrees Fahrenheit < Rectal bleeding in excess of 2 Tablespoons DIET: If you have undergone diagnostic colonosocpy, you may resume your regular diet immediately after the procedure unless otherwise instructed by your doctor. CAUTIONS: The medications used to make the examination more comfortable for you will be acting in your body for up to 24 hours. Therefore: < DO NOT drive a car or operate machinery or power tools. < DO NOT drink alcohol or take tranquillizers or sleeping pills. < DO NOT make major personal decisions. This includes signing legal documents and/or contracts. MEDICATIONS: Most medications can be safely resumed once you can eat. The exceptions would be tranquillizers and sleeping pills. Lee Foley IV, 07/20/2018 12:19:48 PM This report has been signed electronically. lan of Care - C onversion Transaction, Provider Unknown - 07/20/2018 5:05 AM PDTFormatting of this note karo ht be different from the original. Plan of Care by Pal Powers RN at 07/20/18 6590 Author: Pal Powers RN Service: (none) Author Type: Registered Nurse Filed: 07/20/18 0548 Date of Service: 07/20/18504 Status: Addendum Full Service Supervisor: Pal Powers RN (Registered Nurse) Related Notes: Original Note by Pal Powers RN (Registered Nurse) filed at 07/20/18 0 505 Problem: Safety Goal: Patient will be injury free during hospitalization Assess and monitor vitals signs, neurological status including level of consciousness and o rientation. Assess patient's risk for falls and implement fall prevention plan of care and i nterventions per hospital policy. Ensure arm band on, uncluttered walking paths in room, adequate room lighting, call light a nd overbed table within reach, bed in low position, wheels locked, side rails up per policy, and non-skid footwear provided. Outcome: Progressing Patient is independent in room and uses call light appropriately. Problem: Daily Care Goal: Daily care needs are met Assess and monitor ability to perform self care and identify potential discharge needs. Outcome: Progressing Patient was able to consume his Golytely by 0120, he was having several BM's with reduced m atter, clear, with a yellow color. End of shift audit completed. lan o f Care - Conversion Transaction, Provider Unknown - 07/19/2018 9:55 AM PDTFormatting of thi s note might be different from the original. Plan of Care by Lynda Gonsalves RN at 07/19/18 1574 Author: Lynda Gonsalves RN Service: (none) Author Type: Registered Nurse Filed: 07/19/181751 Date of Service: 07/19/18954 Status: Addendum Full Service Supervisor: Lynda Gonsalves RN (Registered Nurse) Related Notes: Original Note by Lynda Gonsalves RN (Registered Nurse) filed at 07/19/18 175 0 Patient currently drinking GoLytely. One BM this shift, stool sample sent to lab. To have E GD/colonoscopy at 1014 in AM. CIWA scores zero. End of shift chart audit complete. Lynda Gonsalves RN Problem: Pain Goal: Patient's pain/discomfort is manageable Assess and monitor patient's pain using appropriate pain scale. Collaborate with interdisci plinary team and initiate plan and interventions as ordered. Re-assess patient's pain level approximately 1-2 hours after pain management intervention. Premedicate as needed. Outcome: Progressing Denies pain or dyspnea. Problem: Compromised Skin Integrity Goal: Skin integrity is maintained or improved Assess and monitor skin integrity. Identify patients at risk for skin breakdown on admissio n and per policy. Collaborate with interdisciplinary team and initiate plans and interventio ns as needed. Outcome: Progressing BLE wounds dressings clean, dry, and intact. Denies pain. lan o f Care - Conversion Transaction, Provider Unknown - 07/19/2018 2:05 AM PDTFormatting of thi s note might be different from the original. Plan of Care by Pal Powers RN at 07/19/18204 Author: Pal Powers RN Service: (none) Author Type: Registered Nurse Filed: 07/19/18204 Date of Service: 07/19/18204 Status: Signed Full Service Supervisor: Pal Powers RN (Registered Nurse) Problem: Pain Goal: Patient's pain/discomfort is manageable Assess and monitor patient's pain using appropriate pain scale. Collaborate with interdisci plinary team and initiate plan and interventions as ordered. Re-assess patient's pain level approximately 1-2 hours after pain management intervention. Premedicate as needed. Outcome: Progressing Patient has denied pain so far this shift. Problem: Daily Care Goal: Daily care needs are met Assess and monitor ability to perform self care and identify potential discharge needs. Outcome: Progressing Patient on CIWA protocol, has yet to score anything > then 0, is not exhibiting withdrawal symptomology, VSS, afebrile, on room air and A/O x 4. lan o f Care - Conversion Transaction, Provider Unknown - 07/18/2018 7:52 AM PDTFormatting of thi s note might be different from the original. Plan of Care by Lynda Gonsalves RN at 07/18/18 075 Author: Lynda Gonsalves RN Service: (none) Author Type: Registered Nurse Filed: 07/18/18 1642 Date of Service: 07/18/18751 Status: Addendum Full Service Supervisor: Lynda Gonsalves RN (Registered Nurse) Related Notes: Original Note by Lynda Gonsalves RN (Registered Nurse) filed at 07/18/18 075 2 Second unit RBC currently infusing. Denies pain or dyspnea. Wound dressing to BLE changed t [place], to be changed every 3 days/or prn (see nursing order). CIWA score MAX 1. End of chart audit complete. Lynda Gonsalves RN Problem: Pain Goal: Patient's pain/discomfort is manageable Assess and monitor patient's pain using appropriate pain scale. Collaborate with interdisci plinary team and initiate plan and interventions as ordered. Re-assess patient's pain level approximately 1-2 hours after pain management intervention. Premedicate as needed. Outcome: Progressing Denies pain or dyspnea. Problem: Compromised Skin Integrity Goal: Skin integrity is maintained or improved Assess and monitor skin integrity. Identify patients at risk for skin breakdown on admissio n and per policy. Collaborate with interdisciplinary team and initiate plans and interventio ns as needed. Outcome: Progressing BLE wounds wrapped with gauze. Generalized petechiae noted. lan o f Care - Conversion Transaction, Provider Unknown - 07/18/2018 12:11 AM PDTFormatting of thi s note might be different from the original. Plan of Care by Vandana Godinez RN at 07/18/18 0011 Author: Vandana Godinez RN Service: (none) Author Type: Registered Nurse Filed: 07/18/1810 Date of Service: 07/18/1810 Status: Signed Full Service Supervisor: Vandana Godinez RN (Registered Nurse) Problem: Knowledge Deficit Goal: Patient/family/caregiver demonstrates understanding of disease process, treatment ezequiel n, medications, and discharge instructions Complete learning assessment and assess knowledge base. Outcome: Progressing Patients leg wounds treated in ED with new dressing. Patient does not want to remove at thi s time for pictures as the dressing was just placed will pass on to day shift. docume nted in this encounter Plan of Treatment +--------+---------+ + + + | Date | Type | Specialty | Care Team | Description | +--------+---------+ + + + | 12/22/ | Office | Cardiology | [facility] | | | 2020 | Visit | | [facility] [address] | | | | | | [address] | | | | | | [place] [address] | | | | | | [phone] | | | | | | | | +--------+---------+ + + + documented as of this encounter Procedures + +--------+ + + + | Procedure Name | Priori | Date/Time | Associated Diagnosis | Comments | | | ty | | | | + +--------+ + + + | CBC NO DIFFERENTIAL | Routin | 07/24/2018 | | Results for this | | | e | 5:20 AM | | procedure are in the | | | | PDT | | results section. | + +--------+ + + + | COMPREHENSIVE | Routin | 07/24/2018 | | Results for this | | METABOLIC PANEL | e | 5:20 AM | | procedure are in the | | | | PDT | | results section. | + +--------+ + + + | HEMOGLOBIN AND | Routin | 07/23/2018 | | Results for this | | HEMATOCRIT | e | 8:43 AM | | procedure are in the | | | | PDT | | results section. | + +--------+ + + + | CBC NO DIFFERENTIAL | Routin | 07/23/2018 | | Results for this | | | e | 5:13 AM | | procedure are in the | | | | PDT | | results section. | + +--------+ + + + | COMPREHENSIVE | Routin | 07/23/2018 | | Results for this | | METABOLIC PANEL | e | 5:13 AM | | procedure are in the | | | | PDT | | results section. | + +--------+ + + + | RETIC COUNT | Routin | 07/22/2018 | | Results for this | | | e | 5:22 AM | | procedure are in the | | | | PDT | | results section. | + +--------+ + + + | CBC NO DIFFERENTIAL | Routin | 07/22/2018 | | Results for this | | | e | 5:22 AM | | procedure are in the | | | | PDT | | results section. | + +--------+ + + + | COMPREHENSIVE | Routin | 07/22/2018 | | Results for this | | METABOLIC PANEL | e | 5:22 AM | | procedure are in the | | | | PDT | | results section. | + +--------+ + + + | TISSUE REQUEST FOR | Routin | 07/21/2018 | | Results for this | | PATHOLOGY (NON-ORD) | e | 8:00 AM | | procedure are in the | | | | PDT | | results section. | + +--------+ + + + | PROTIME INR | Routin | 07/21/2018 | | Results for this | | | e | 5:18 AM | | procedure are in the | | | | PDT | | results section. | + +--------+ + + + | CBC NO DIFFERENTIAL | Routin | 07/21/2018 | | Results for this | | | e | 5:18 AM | | procedure are in the | | | | PDT | | results section. | + +--------+ + + + | COMPREHENSIVE | Routin | 07/21/2018 | | Results for this | | METABOLIC PANEL | e | 5:18 AM | | procedure are in the | | | | PDT | | results section. | + +--------+ + + + | COLONOSCOPY | Routin | 07/20/2018 | | Results for this | | | e | 12:20 PM | | procedure are in the | | | | PDT | | results section. | + +--------+ + + + | ENDOSCOPY | Routin | 07/20/2018 | | Results for this | | | e | 11:47 AM | | procedure are in the | | | | PDT | | results section. | + +--------+ + + + | EXTERNAL LAB: CBC | Routin | 07/20/2018 | | Results for this | | | e | 5:56 AM | | procedure are in the | | | | PDT | | results section. | + +--------+ + + + | COMPREHENSIVE | Routin | 07/20/2018 | | Results for this | | METABOLIC PANEL | e | 5:56 AM | | procedure are in the | | | | PDT | | results section. | + +--------+ + + + | EXTERNAL LAB: OCCULT | Routin | 07/19/2018 | | Results for this | | BLOOD, SCREENING | e | 6:00 PM | | procedure are in the | | | | PDT | | results section. | + +--------+ + + + | POC GLUCOSE | Routin | 07/19/2018 | | Results for this | | | e | 11:38 AM | | procedure are in the | | | | PDT | | results section. | + +--------+ + + + | EXTERNAL LAB: CBC | Routin | 07/19/2018 | | Results for this | | | e | 5:33 AM | | procedure are in the | | | | PDT | | results section. | + +--------+ + + + | PHOSPHORUS | Routin | 07/19/2018 | | Results for this | | | e | 5:33 AM | | procedure are in the | | | | PDT | | results section. | + +--------+ + + + | MAGNESIUM | Routin | 07/19/2018 | | Results for this | | | e | 5:33 AM | | procedure are in the | | | | PDT | | results section. | + +--------+ + + + | COMPREHENSIVE | Routin | 07/19/2018 | | Results for this | | METABOLIC PANEL | e | 5:33 AM | | procedure are in the | | | | PDT | | results section. | + +--------+ + + + | HEMOGLOBIN AND | Routin | 07/18/2018 | | Results for this | | HEMATOCRIT | e | 6:36 PM | | procedure are in the | | | | PDT | | results section. | + +--------+ + + + | CULTURE, WOUND, | Timed | 07/18/2018 | | Results for this | | SMEAR, W/ANAEROBE | | 4:38 PM | | procedure are in the | | | | PDT | | results section. | + +--------+ + + + | DIOGENES PROFILE, REFLEX | Routin | 07/18/2018 | | Results for this | | | e | 2:12 PM | | procedure are in the | | | | PDT | | results section. | + +--------+ + + + | CYTOMEGALOVIRUS AB, | Routin | 07/18/2018 | | Results for this | | IGG AND IGM | e | 2:12 PM | | procedure are in the | | | | PDT | | results section. | + +--------+ + + + | PATHOLOGY CONSULT | Routin | 07/18/2018 | | Results for this | | REQUEST | e | 2:12 PM | | procedure are in the | | | | PDT | | results section. | + +--------+ + + + | VAS LOWER EXTREMITY | Routin | 07/18/2018 | | Results for this | | VENOUS BILATERAL | e | 12:28 PM | | procedure are in the | | | | PDT | | results section. | + +--------+ + + + | CALCIUM, IONIZED | Routin | 07/18/2018 | | Results for this | | | e | 11:57 AM | | procedure are in the | | | | PDT | | results section. | + +--------+ + + + | MRSA NAAT | Timed | 07/18/2018 | | Results for this | | | | 10:25 AM | | procedure are in the | | | | PDT | | results section. | + +--------+ + + + | ECHO COMPLETE | Routin | 07/18/2018 | | Results for this | | | e | 10:05 AM | | procedure are in the | | | | PDT | | results section. | + +--------+ + + + | HEPATIC FUNCTION | Routin | 07/18/2018 | | Results for this | | PANEL | e | 9:30 AM | | procedure are in the | | | | PDT | | results section. | + +--------+ + + + | HEPATITIS PANEL, | Routin | 07/18/2018 | | Results for this | | CHRONIC | e | 9:25 AM | | procedure are in the | | | | PDT | | results section. | + +--------+ + + + | HEMOGLOBIN AND | Routin | 07/18/2018 | | Results for this | | HEMATOCRIT | e | 9:25 AM | | procedure are in the | | | | PDT | | results section. | + +--------+ + + + | SEDIMENTATION RATE, | Routin | 07/18/2018 | | Results for this | | AUTOMATED | e | 9:25 AM | | procedure are in the | | | | PDT | | results section. | + +--------+ + + + | C-REACTIVE PROTEIN | Routin | 07/18/2018 | | Results for this | | | e | 9:25 AM | | procedure are in the | | | | PDT | | results section. | + +--------+ + + + | LACTATE | Routin | 07/18/2018 | | Results for this | | DEHYDROGENASE | e | 9:25 AM | | procedure are in the | | | | PDT | | results section. | + +--------+ + + + | EXTERNAL LAB: CBC | Routin | 07/18/2018 | | Results for this | | | e | 6:44 AM | | procedure are in the | | | | PDT | | results section. | + +--------+ + + + | PHOSPHORUS | Routin | 07/18/2018 | | Results for this | | | e | 6:44 AM | | procedure are in the | | | | PDT | | results section. | + +--------+ + + + | MAGNESIUM | Routin | 07/18/2018 | | Results for this | | | e | 6:44 AM | | procedure are in the | | | | PDT | | results section. | + +--------+ + + + | COMPREHENSIVE | Routin | 07/18/2018 | | Results for this | | METABOLIC PANEL | e | 6:44 AM | | procedure are in the | | | | PDT | | results section. | + +--------+ + + + | US RENAL LIMITED | Routin | 07/18/2018 | | Results for this | | | e | 12:01 AM | | procedure are in the | | | | PDT | | results section. | + +--------+ + + + | URINALYSIS WITH | Routin | 07/17/2018 | | Results for this | | MICROSCOPIC IF | e | 10:40 PM | | procedure are in the | | INDICATED | | PDT | | results section. | + +--------+ + + + | URINALYSIS, | Routin | 07/17/2018 | | Results for this | | MICROSCOPIC ONLY | e | 10:40 PM | | procedure are in the | | | | PDT | | results section. | + +--------+ + + + | SODIUM, URINE, | Routin | 07/17/2018 | | Results for this | | RANDOM | e | 10:40 PM | | procedure are in the | | | | PDT | | results section. | + +--------+ + + + | CREATININE, URINE, | Routin | 07/17/2018 | | Results for this | | RANDOM | e | 10:40 PM | | procedure are in the | | | | PDT | | results section. | + +--------+ + + + | XR CHEST 2 VIEWS | Routin | 07/17/2018 | | Results for this | | | e | 9:12 PM | | procedure are in the | | | | PDT | | results section. | + +--------+ + + + | URINALYSIS, REFLEX | Routin | 07/17/2018 | | Results for this | | MICROSCOPIC AND/OR | e | 8:39 PM | | procedure are in the | | CULTURE | | PDT | | results section. | + +--------+ + + + | US ABDOMEN LIMITED | Routin | 07/17/2018 | | Results for this | | | e | 7:35 PM | | procedure are in the | | | | PDT | | results section. | + +--------+ + + + | TYPE AND SCREEN | Routin | 07/17/2018 | | Results for this | | | e | 5:13 PM | | procedure are in the | | | | PDT | | results section. | + +--------+ + + + | EXTERNAL LAB: CBC | Routin | 07/17/2018 | | Results for this | | | e | 4:27 PM | | procedure are in the | | | | PDT | | results section. | + +--------+ + + + | IRON AND IRON | Routin | 07/17/2018 | | Results for this | | BINDING CAPACITY | e | 4:27 PM | | procedure are in the | | | | PDT | | results section. | + +--------+ + + + | VITAMIN B-12 | Routin | 07/17/2018 | | Results for this | | | e | 4:27 PM | | procedure are in the | | | | PDT | | results section. | + +--------+ + + + | PTT | Routin | 07/17/2018 | | Results for this | | | e | 4:27 PM | | procedure are in the | | | | PDT | | results section. | + +--------+ + + + | PROTIME INR | Routin | 07/17/2018 | | Results for this | | | e | 4:27 PM | | procedure are in the | | | | PDT | | results section. | + +--------+ + + + | LIPASE | Routin | 07/17/2018 | | Results for this | | | e | 4:27 PM | | procedure are in the | | | | PDT | | results section. | + +--------+ + + + | FOLATE | Routin | 07/17/2018 | | Results for this | | | e | 4:27 PM | | procedure are in the | | | | PDT | | results section. | + +--------+ + + + | FERRITIN | Routin | 07/17/2018 | | Results for this | | | e | 4:27 PM | | procedure are in the | | | | PDT | | results section. | + +--------+ + + + | AMYLASE | Routin | 07/17/2018 | | Results for this | | | e | 4:27 PM | | procedure are in the | | | | PDT | | results section. | + +--------+ + + + | AMMONIA | Routin | 07/17/2018 | | Results for this | | | e | 4:27 PM | | procedure are in the | | | | PDT | | results section. | + +--------+ + + + | COMPREHENSIVE | Routin | 07/17/2018 | | Results for this | | METABOLIC PANEL | e | 4:27 PM | | procedure are in the | | | | PDT | | results section. | + +--------+ + + + documented in this encounter Results CBC no Differential (07/24/2018 5:20 AM PDT) + + + + + + | Component | Value | Ref Range | Performed | Pathologist | | | | | At | Signature | + + + + + + | WBC | 5.41 | 3.80 - 11.00 | EXTERNAL | | | | | K/uL | LAB | | + + + + + + | Non- | 1.98 (L) | 4.20 - 5.70 | EXTERNAL | | | Red Blood | | M/uL | LAB | | | Cells | | | | | | Counted | | | | | + + + + + + | Hemoglobin | 6.8 (LL) | 13.2 - 17.0 | EXTERNAL | | | | Comment: | g/dL | LAB | | | | RESULT READ BACK BY: | | | | | | DELBERT C. 07/24/18716 JOSHUA | | | | | | | | | | + + + + + + | Hematocrit, | 18.7 (LL) | 39.0 - 50.0 % | EXTERNAL | | | POC | Comment: | | LAB | | | | RESULT READ BACK BY: | | | | | | DELBERT C. 07/24/18716 JOSHUA | | | | | | | | | | + + + + + + | MCV | 94.3 | 80.0 - 100.0 fl | EXTERNAL | | | | | | LAB | | + + + + + + | MCH | 34.4 (H) | 27.0 - 34.0 pg | EXTERNAL | | | | | | LAB | | + + + + + + | MCHC | 36.5 (H) | 32.0 - 35.5 | EXTERNAL | | | | | g/dL | LAB | | + + + + + + | RDW-CV | 84.4 (H) | 37 - 53 fl | EXTERNAL | | | | | | LAB | | + + + + + + | Platelet | 82 (L) | 150 - 400 K/uL | EXTERNAL | | | Count | | | LAB | | | Plasma | | | | | + + + + + + | MPV | 6.7Comment: Testing | fl | EXTERNAL | | | | performed at [facility], [address] | | LAB | | | | [address], | | | | | | [place] [address] | | | | + + + + + + + + | Specimen | + + | | + + + +---------+ + + | Performing | Address | City/State/Zipcode | Phone Number | | Organization | | | | + +---------+ + + | EXTERNAL LAB | | | | + +---------+ + + Comprehensive Metabolic Panel (07/24/2018 5:20 AM PDT) + + + + + + | Component | Value | Ref Range | Performed | Pathologist | | | | | At | Signature | + + + + + + | Na | 136 | 135 - 145 | EXTERNAL | | | | | mmol/L | LAB | | + + + + + + | K | 3.7 | 3.5 - 4.9 | EXTERNAL | | | | | mmol/L | LAB | | + + + + + + | Cl | 101 | 99 - 109 mmol/L | EXTERNAL | | | | | | LAB | | + + + + + + | CO2 | 26 | 23 - 32 mmol/L | EXTERNAL | | | | | | LAB | | + + + + + + | Anion Gap | 13 | 5 - 20 mmol/L | EXTERNAL | | | | | | LAB | | + + + + + + | Glucose, | 126 (H) | 65 - 99 mg/dL | EXTERNAL | | | Fasting | | | LAB | | + + + + + + | BUN | 28 (H) | 8 - 25 mg/dL | EXTERNAL | | | | | | LAB | | + + + + + + | Creatinine | 1.7 (H) | 0.70 - 1.30 | EXTERNAL | | | | | mg/dL | LAB | | + + + + + + | BUN/Creatin | 16 | | EXTERNAL | | | ine Ratio | | | LAB | | + + + + + + | Calcium | 7.7 (L) | 8.5 - 10.5 | EXTERNAL | | | | | mg/dL | LAB | | + + + + + + | Protein, | 7.2 | 6.3 - 8.2 g/dL | EXTERNAL | | | Total | | | LAB | | + + + + + + | Albumin | 2.5 (L) | 3.6 - 5.0 g/dL | EXTERNAL | | | | | | LAB | | + + + + + + | Globulin | 4.7 | 1.3 - 4.9 g/dL | EXTERNAL | | | | | | LAB | | + + + + + + | A/G Ratio | 0.5 (L) | 1.0 - 2.4 | EXTERNAL | | | | | | LAB | | + + + + + + | Bilirubin | 10.2 (H) | 0.1 - 1.5 mg/dL | EXTERNAL | | | Total | | | LAB | | + + + + + + | ALP, | 106 | 35 - 115 U/L | EXTERNAL | | | External | | | LAB | | + + + + + + | AST | 76 (H) | 10 - 45 U/L | EXTERNAL | | | | | | LAB | | + + + + + + | ALT | 17 | 10 - 65 U/L | EXTERNAL | | | | | | LAB | | + + + + + + | Estimated | 42 (L)Comment: GFR <60: | mL/min/1.73m2 | EXTERNAL | | | GFR | CHRONIC KIDNEY DISEASE, | | LAB | | | | IF FOUND OVER A 3 MONTH | | | | | | PERIOD.GFR <15: KIDNEY | | | | | | FAILURE.FOR | | | | | | AMERICANS, MULTIPLY THE | | | | | | CALCULATED GFR BY | | | | | | 1.210.This eGFR is | | | | | | calculated using the | | | | | | MDRD IDMS traceable | | | | | | equation.Testing | | | | | | performed at [facility], [address] | | | | | | [facility], | | | | | | [place] [address] | | | | + + + + + + + + | Specimen | + + | Blood specimen | | (specimen) | + + + +---------+ + + | Performing | Address | City/State/Zipcode | Phone Number | | Organization | | | | + +---------+ + + | EXTERNAL LAB | | | | + +---------+ + + Hemoglobin and Hematocrit (07/23/2018 8:43 AM PDT) + + + + + + | Component | Value | Ref Range | Performed | Pathologist | | | | | At | Signature | + + + + + + | Hemoglobin | 6.9 (LL)Comment: RESULTS | 13.2 - 17.0 | EXTERNAL | | | | CALLED TO DELBERT C/7RP | g/dL | LAB | | | | 0910T,JBREAD BACK | | | | | | RESULTS VERIFIED | | | | | | | | | | + + + + + + | Hematocrit, | 18.7 (LL)Comment: | 39.0 - 50.0 % | EXTERNAL | | | POC | RESULTS CALLED TO DELBERT | | LAB | | | | C/7RP 0910T,JBREAD BACK | | | | | | RESULTS VERIFIEDTesting | | | | | | performed at [facility];[address];[place], [place] | | | | | | [address] | | | | + + + + + + + + | Specimen | + + | | + + + +---------+ + + | Performing | Address | City/State/Zipcode | Phone Number | | Organization | | | | + +---------+ + + | EXTERNAL LAB | | | | + +---------+ + + CBC no Differential (07/23/2018 5:13 AM PDT) + + + + + + | Component | Value | Ref Range | Performed | Pathologist | | | | | At | Signature | + + + + + + | WBC | 4.54 | 3.80 - 11.00 | EXTERNAL | | | | | K/uL | LAB | | + + + + + + | Non- | 2.00 (L) | 4.20 - 5.70 | EXTERNAL | | | Red Blood | | M/uL | LAB | | | Cells | | | | | | Counted | | | | | + + + + + + | Hemoglobin | 7.1 (L) | 13.2 - 17.0 | EXTERNAL | | | | | g/dL | LAB | | + + + + + + | Hematocrit, | 19.3 (LL)Comment: RESULT | 39.0 - 50.0 % | EXTERNAL | | | POC | READ BACK BY:DELBERT Coats 7RP | | LAB | | | | 0723 07/23/18 KB | | | | | |DELBERT Coats 7RP 0723 07/23/18 KB | | | | | | | | | | + + + + + + | MCV | 96.3 | 80.0 - 100.0 fl | EXTERNAL | | | | | | LAB | | + + + + + + | MCH | 35.5 (H) | 27.0 - 34.0 pg | EXTERNAL | | | | | | LAB | | + + + + + + | MCHC | 36.8 (H) | 32.0 - 35.5 | EXTERNAL | | | | | g/dL | LAB | | + + + + + + | RDW-CV | 86.2 (H) | 37 - 53 fl | EXTERNAL | | | | | | LAB | | + + + + + + | Platelet | 87 (L)Comment: SLIDE | 150 - 400 K/uL | EXTERNAL | | | Count | SCANNED, AGREES WITH | | LAB | | | Plasma | AUTOMATED RESULTS. | | | | | |SLIDE SCANNED, AGREES WITH AUTOMATED RESULTS. | | | | | | | | | | + + + + + + | MPV | 7.0Comment: Testing | fl | EXTERNAL | | | | performed at [facility], [address] | | LAB | | | | [address], | | | | | | [place] [address] | | | | | | | | | | + + + + + + + + | Specimen | + + | | + + + +---------+ + + | Performing | Address | City/State/Zipcode | Phone Number | | Organization | | | | + +---------+ + + | EXTERNAL LAB | | | | + +---------+ + + Comprehensive Metabolic Panel (07/23/2018 5:13 AM PDT) + + + + + + | Component | Value | Ref Range | Performed | Pathologist | | | | | At | Signature | + + + + + + | Na | 135 | 135 - 145 | EXTERNAL | | | | | mmol/L | LAB | | + + + + + + | K | 3.9 | 3.5 - 4.9 | EXTERNAL | | | | | mmol/L | LAB | | + + + + + + | Cl | 101 | 99 - 109 mmol/L | EXTERNAL | | | | | | LAB | | + + + + + + | CO2 | 27 | 23 - 32 mmol/L | EXTERNAL | | | | | | LAB | | + + + + + + | Anion Gap | 11 | 5 - 20 mmol/L | EXTERNAL | | | | | | LAB | | + + + + + + | Glucose, | 110 (H) | 65 - 99 mg/dL | EXTERNAL | | | Fasting | | | LAB | | + + + + + + | BUN | 25 | 8 - 25 mg/dL | EXTERNAL | | | | | | LAB | | + + + + + + | Creatinine | 1.6 (H) | 0.70 - 1.30 | EXTERNAL | | | | | mg/dL | LAB | | + + + + + + | BUN/Creatin | 16 | | EXTERNAL | | | ine Ratio | | | LAB | | + + + + + + | Calcium | 7.8 (L) | 8.5 - 10.5 | EXTERNAL | | | | | mg/dL | LAB | | + + + + + + | Protein, | 7.1 | 6.3 - 8.2 g/dL | EXTERNAL | | | Total | | | LAB | | + + + + + + | Albumin | 2.6 (L) | 3.6 - 5.0 g/dL | EXTERNAL | | | | | | LAB | | + + + + + + | Globulin | 4.5 | 1.3 - 4.9 g/dL | EXTERNAL | | | | | | LAB | | + + + + + + | A/G Ratio | 0.6 (L) | 1.0 - 2.4 | EXTERNAL | | | | | | LAB | | + + + + + + | Bilirubin | 10.5 (H) | 0.1 - 1.5 mg/dL | EXTERNAL | | | Total | | | LAB | | + + + + + + | ALP, | 121 (H) | 35 - 115 U/L | EXTERNAL | | | External | | | LAB | | + + + + + + | AST | 72 (H) | 10 - 45 U/L | EXTERNAL | | | | | | LAB | | + + + + + + | ALT | 15 | 10 - 65 U/L | EXTERNAL | | | | | | LAB | | + + + + + + | Estimated | 45 (L)Comment: GFR <60: | mL/min/1.73m2 | EXTERNAL | | | GFR | CHRONIC KIDNEY DISEASE, | | LAB | | | | IF FOUND OVER A 3 MONTH | | | | | | PERIOD.GFR <15: KIDNEY | | | | | | FAILURE.FOR | | | | | | AMERICANS, MULTIPLY THE | | | | | | CALCULATED GFR BY | | | | | | 1.210.This eGFR is | | | | | | calculated using the | | | | | | MDRD IDMS traceable | | | | | | equation.Testing | | | | | | performed at [facility], [address] | | | | | [address], | | | | | | [place] [address] | | | | + + + + + + + + | Specimen | + + | Blood specimen | | (specimen) | + + + +---------+ + + | Performing | Address | City/State/Zipcode | Phone Number | | Organization | | | | + +---------+ + + | EXTERNAL LAB | | | | + +---------+ + + CBC no Differential (07/22/2018 5:22 AM PDT) + + + + + + | Component | Value | Ref Range | Performed | Pathologist | | | | | At | Signature | + + + + + + | WBC | 4.80 | 3.80 - 11.00 | EXTERNAL | | | | | K/uL | LAB | | + + + + + + | Non- | 2.01 (L) | 4.20 - 5.70 | EXTERNAL | | | Red Blood | | M/uL | LAB | | | Cells | | | | | | Counted | | | | | + + + + + + | Hemoglobin | 7.2 (L) | 13.2 - 17.0 | EXTERNAL | | | | | g/dL | LAB | | + + + + + + | Hematocrit, | 19.3 (LL)Comment: RESULT | 39.0 - 50.0 % | EXTERNAL | | | POC | READ BACK BY:ASMITA Coats | | LAB | | | | 7RP 0713 07/22/18 KB | | | | | |ASMITA Coats 7RP 71207/22/18 KB | | | | | | | | | | + + + + + + | MCV | 95.9 | 80.0 - 100.0 fl | EXTERNAL | | | | | | LAB | | + + + + + + | MCH | 35.7 (H) | 27.0 - 34.0 pg | EXTERNAL | | | | | | LAB | | + + + + + + | MCHC | 37.2 (H) | 32.0 - 35.5 | EXTERNAL | | | | | g/dL | LAB | | + + + + + + | RDW-CV | 92.8 (H) | 37 - 53 fl | EXTERNAL | | | | | | LAB | | + + + + + + | Platelet | 88 (L)Comment: | 150 - 400 K/uL | EXTERNAL | | | Count | | | LAB | | | Plasma | | | | | + + + + + + | MPV | 7.0Comment: Testing | fl | EXTERNAL | | | | performed at [facility], [address] | | LAB | | | | [address], | | | | | | [place] [address] | | | | | | | [...] | + +---------+ + + Retic Count (07/22/2018 5:22 AM PDT) + + + + + + | Component | Value | Ref Range | Performed | Pathologist | | | | | At | Signature | + + + + + + | % | 3.7 (H)Comment: Testing | 0.4 - 2.7 % | EXTERNAL | | | Reticulocyt | performed at [facility];[address] | | LAB | | | [address] | [address];[place], [place] | | | | | | [address] | | | | + + + + + + + + | Specimen | + + | Blood specimen | | (specimen) | + + + +---------+ + + | Performing | Address | City/State/Zipcode | Phone Number | | Organization | | | | + +---------+ + + | EXTERNAL LAB | | | | + +---------+ + + Comprehensive Metabolic Panel (07/22/2018 5:22 AM PDT) + + + + + + | Component | Value | Ref Range | Performed | Pathologist | | | | | At | Signature | + + + + + + | Na | 138 | 135 - 145 | EXTERNAL | | | | | mmol/L | LAB | | + + + + + + | K | 3.7 | 3.5 - 4.9 | EXTERNAL | | | | | mmol/L | LAB | | + + + + + + | Cl | 101 | 99 - 109 mmol/L | EXTERNAL | | | | | | LAB | | + + + + + + | CO2 | 25 | 23 - 32 mmol/L | EXTERNAL | | | | | | LAB | | + + + + + + | Anion Gap | 16 | 5 - 20 mmol/L | EXTERNAL | | | | | | LAB | | + + + + + + | Glucose, | 104 (H) | 65 - 99 mg/dL | EXTERNAL | | | Fasting | | | LAB | | + + + + + + | BUN | 24 | 8 - 25 mg/dL | EXTERNAL | | | | | | LAB | | + + + + + + | Creatinine | 1.6 (H) | 0.70 - 1.30 | EXTERNAL | | | | | mg/dL | LAB | | + + + + + + | BUN/Creatin | 15 | | EXTERNAL | | | ine Ratio | | | LAB | | + + + + + + | Calcium | 7.6 (L) | 8.5 - 10.5 | EXTERNAL | | | | | mg/dL | LAB | | + + + + + + | Protein, | 6.8 | 6.3 - 8.2 g/dL | EXTERNAL | | | Total | | | LAB | | + + + + + + | Albumin | 2.5 (L) | 3.6 - 5.0 g/dL | EXTERNAL | | | | | | LAB | | + + + + + + | Globulin | 4.3 | 1.3 - 4.9 g/dL | EXTERNAL | | | | | | LAB | | + + + + + + | A/G Ratio | 0.6 (L) | 1.0 - 2.4 | EXTERNAL | | | | | | LAB | | + + + + + + | Bilirubin | 9.8 (H) | 0.1 - 1.5 mg/dL | EXTERNAL | | | Total | | | LAB | | + + + + + + | ALP, | 126 (H) | 35 - 115 U/L | EXTERNAL | | | External | | | LAB | | + + + + + + | AST | 60 (H) | 10 - 45 U/L | EXTERNAL | | | | | | LAB | | + + + + + + | ALT | 13 | 10 - 65 U/L | EXTERNAL | | | | | | LAB | | + + + + + + | Estimated | 45 (L)Comment: GFR <60: | mL/min/1.73m2 | EXTERNAL | | | GFR | CHRONIC KIDNEY DISEASE, | | LAB | | | | IF FOUND OVER A 3 MONTH | | | | | | PERIOD.GFR <15: KIDNEY | | | | | | FAILURE.FOR | | | | | | AMERICANS, MULTIPLY THE | | | | | | CALCULATED GFR BY | | | | | | 1.210.This eGFR is | | | | | | calculated using the | | | | | | MDRD IDMS traceable | | | | | | equation.Testing | | | | | | performed at [facility], [address] | | | | | | [facility], | | | | | | [place] [address] | | | | + + + + + + + + | Specimen | + + | Blood specimen | | (specimen) | + + + +---------+ + + | Performing | Address | City/State/Zipcode | Phone Number | | Organization | | | | + +---------+ + + | EXTERNAL LAB | | | | + +---------+ + + Tissue Request For Pathology (07/21/2018 8:00 AM PDT) + + | Specimen | + + | Soft tissue sample | | (specimen) | + + + + + | Narrative | Performed At | + + + | SPECIMEN(S): A DUODENAL BIOPSY SPECIMEN SOURCE: A. DUODENAL BIOPSY | EXTERNAL LAB | | CLINICAL HISTORY: Anemia, normal EGD. MICROSCOPIC DESCRIPTION: | | | Histologic sections of all submitted blocks are examined by light | | | microscopy. These findings, together with the gross examination, | | | support the pathologic diagnosis. FINAL PATHOLOGIC DIAGNOSIS: | | | Duodenum, biopsy: - Duodenal mucosa with mild chronic duodenitis. | | | - Normal villous architecture; negative for increased | | | intraepithelial lymphocytes. KPS:caw:[id number] GROSS DESCRIPTION: The | | | specimen is received in formalin labeled "ReaganDoug ordonez", designated | | | "duodenum biopsy" and consists of 1 yellow-conway tissue fragment which | | | measures 0.3 cm in diameter. The entire specimen is submitted in | | | single cassette A1. js:AMB:emb PERFORMING LABORATORY: The technical | | | component was performed by [facility], [address], | | | [facility] [address] (Business Employment Specialist: Cecille Douglas MD; CLIA# | | | [id number]). Professional interpretation was performed by [facility] | | | [facility], [facility], [address] | | | [place], [place] [address] (Business Employment Specialist: Mauricio Kay MD; | | | CLIA# [id number]). Diagnostician: Mauricio Kay MD Pathologist | | | Electronically Signed 07/22/2018 | | + + + + +---------+ + + | Performing | Address | City/State/Zipcode | Phone Number | | Organization | | | | + +---------+ + + | EXTERNAL LAB | | | | + +---------+ + + CBC no Differential (07/21/2018 5:18 AM PDT) + + + + + + | Component | Value | Ref Range | Performed | Pathologist | | | | | At | Signature | + + + + + + | WBC | 5.62 | 3.80 - 11.00 | EXTERNAL | | | | | K/uL | LAB | | + + + + + + | Non- | 1.96 (L) | 4.20 - 5.70 | EXTERNAL | | | Red Blood | | M/uL | LAB | | | Cells | | | | | | Counted | | | | | + + + + + + | Hemoglobin | 6.9 (LL)Comment: RESULT | 13.2 - 17.0 | EXTERNAL | | | | READ BACK BY:LEANDRO Cota 7RP | g/dL | LAB | | | | 0643 07/21/18 KB | | | | | |LEANDRO Cota 7RP 0643 07/21/18 KB | | | | | | | | | | + + + + + + | Hematocrit, | 18.9 (LL)Comment: RESULT | 39.0 - 50.0 % | EXTERNAL | | | POC | READ BACK BY:LEANDRO Cota 7RP | | LAB | | | | 0643 07/21/18 KB | | | | | |LEANDRO G 7RP 0643 07/21/18 KB | | | | | | | | | | + + + + + + | MCV | 96.8 | 80.0 - 100.0 fl | EXTERNAL | | | | | | LAB | | + + + + + + | MCH | 35.2 (H) | 27.0 - 34.0 pg | EXTERNAL | | | | | | LAB | | + + + + + + | MCHC | 36.3 (H) | 32.0 - 35.5 | EXTERNAL | | | | | g/dL | LAB | | + + + + + + | RDW-CV | 90.1 (H) | 37 - 53 fl | EXTERNAL | | | | | | LAB | | + + + + + + | Platelet | 98 (L) | 150 - 400 K/uL | EXTERNAL | | | Count | | | LAB | | | Plasma | | | | | + + + + + + | MPV | 7.1Comment: Testing | fl | EXTERNAL | | | | performed at [facility], [address] | | LAB | | | | [address], | | | | | | [place] [address] | | | | + + + + + + + + | Specimen | + + | | + + + +---------+ + + | Performing | Address | City/State/Zipcode | Phone Number | | Organization | | | | + +---------+ + + | EXTERNAL LAB | | | | + +---------+ + + [facility] INR (07/21/2018 5:18 AM PDT) + + + + + + | Component | Value | Ref Range | Performed | Pathologist | | | | | At | Signature | + + + + + + | INR | 1.7Comment: REFERENCE | | EXTERNAL | | | | RANGE:0.9 - 1.2 | | LAB | | | | NON-ANTICOAGULATED2.0 | | | | | | - 3.0 ALL OTHER | | | | | | THERAPEUTIC | | | | | | INDICATIONS2.5 - 3.5 | | | | | | MECHANICAL HEART VALVES, | | | | | | RECURRENT OR SYSTEMIC | | | | | | EMBOLISMTesting | | | | | | performed at [facility];[address] | | | | | [address] [facility];[place], [place] | | | | | | [address] | | | | + + + + + + + + | Specimen | + + | Blood specimen | | (specimen) | + + + +---------+ + + | Performing | Address | City/State/Zipcode | Phone Number | | Organization | | | | + +---------+ + + | EXTERNAL LAB | | | | + +---------+ + + Comprehensive Metabolic Panel (07/21/2018 5:18 AM PDT) + + + + + + | Component | Value | Ref Range | Performed | Pathologist | | | | | At | Signature | + + + + + + | Na | 138 | 135 - 145 | EXTERNAL | | | | | mmol/L | LAB | | + + + + + + | K | 3.7 | 3.5 - 4.9 | EXTERNAL | | | | | mmol/L | LAB | | + + + + + + | Cl | 103 | 99 - 109 mmol/L | EXTERNAL | | | | | | LAB | | + + + + + + | CO2 | 25 | 23 - 32 mmol/L | EXTERNAL | | | | | | LAB | | + + + + + + | Anion Gap | 14 | 5 - 20 mmol/L | EXTERNAL | | | | | | LAB | | + + + + + + | Glucose, | 107 (H) | 65 - 99 mg/dL | EXTERNAL | | | Fasting | | | LAB | | + + + + + + | BUN | 19 | 8 - 25 mg/dL | EXTERNAL | | | | | | LAB | | + + + + + + | Creatinine | 1.6 (H) | 0.70 - 1.30 | EXTERNAL | | | | | mg/dL | LAB | | + + + + + + | BUN/Creatin | 12 | | EXTERNAL | | | ine Ratio | | | LAB | | + + + + + + | Calcium | 7.8 (L) | 8.5 - 10.5 | EXTERNAL | | | | | mg/dL | LAB | | + + + + + + | Protein, | 7.0 | 6.3 - 8.2 g/dL | EXTERNAL | | | Total | | | LAB | | + + + + + + | Albumin | 2.6 (L) | 3.6 - 5.0 g/dL | EXTERNAL | | | | | | LAB | | + + + + + + | Globulin | 4.4 | 1.3 - 4.9 g/dL | EXTERNAL | | | | | | LAB | | + + + + + + | A/G Ratio | 0.6 (L) | 1.0 - 2.4 | EXTERNAL | | | | | | LAB | | + + + + + + | Bilirubin | 10.7 (H) | 0.1 - 1.5 mg/dL | EXTERNAL | | | Total | | | LAB | | + + + + + + | ALP, | 96 | 35 - 115 U/L | EXTERNAL | | | External | | | LAB | | + + + + + + | AST | 60 (H) | 10 - 45 U/L | EXTERNAL | | | | | | LAB | | + + + + + + | ALT | 15 | 10 - 65 U/L | EXTERNAL | | | | | | LAB | | + + + + + + | Estimated | 45 (L)Comment: GFR <60: | mL/min/1.73m2 | EXTERNAL | | | GFR | CHRONIC KIDNEY DISEASE, | | LAB | | | | IF FOUND OVER A 3 MONTH | | | | | | PERIOD.GFR <15: KIDNEY | | | | | | FAILURE.FOR | | | | | | AMERICANS, MULTIPLY THE | | | | | | CALCULATED GFR BY | | | | | | 1.210.This eGFR is | | | | | | calculated using the | | | | | | MDRD IDMS traceable | | | | | | equation.Testing | | | | | | performed at [facility], [address] | | | | | [facility], | | | | | | [place] [address] | | | | + + + + + + + + | Specimen | + + | Blood specimen | | (specimen) | + + + +---------+ + + | Performing | Address | City/State/Zipcode | Phone Number | | Organization | | | | + +---------+ + + | EXTERNAL LAB | | | | + +---------+ + + COLONOSCOPY (07/20/2018 12:20 PM PDT) + + | Specimen | + + | | + + + + + | Narrative | Performed At | + + + | Historically converted procedure from [facility] environment | EXTERNAL LAB | | [facility] | | | | | | Patient Name: Doug Duran Procedure Date: | | | 07/20/2018 12:20 PM | | | Date of : 1965 | | | Note Status: Finalized Attending MD: Lee Foley IV , | | | Instrument Name: [id number] Colonoscope | | | | | | Procedure Type: Colonoscopy | | | Indications: 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 | | | | | | Procedure: Pre-Anesthesia Assessment: - | | | Prior to the procedure, a History and Physical was performed, and | | | patient medications and allergies were reviewed. The patient's | | | tolerance of previous anesthesia was also reviewed. The risks | | | and benefits of the procedure and the sedation options and | | | risks were discussed with the patient. All questions were | | | answered, and informed consent was obtained. Prior | | | Anticoagulants: The patient has taken no previous anticoagulant or | | | antiplatelet agents. ASA Grade Assessment: III - A patient with | | | severe systemic disease. After reviewing the risks and | | | benefits, the patient was deemed in satisfactory condition to | | | undergo the procedure. - Prior to the procedure, a History | | | and Physical was performed, and patient medications and | | | allergies were reviewed. The patient's tolerance of previous | | | anesthesia was also reviewed. The risks and benefits of the | | | procedure and the sedation options and risks were discussed with the | | | patient. All questions were answered, and informed consent was | | | obtained. Prior Anticoagulants: The patient has taken no | | | previous anticoagulant or antiplatelet agents. ASA Grade | | | Assessment: III - A patient with severe systemic disease. | | | After reviewing the risks and benefits, the patient was | | | deemed in satisfactory condition to undergo the procedure. | | | After I obtained informed consent, the scope was passed under direct | | | vision. Throughout the procedure, the patient's blood | | | pressure, pulse, and oxygen saturations were monitored | | | continuously. The Colonoscope was introduced through the anus | | | and advanced to the terminal ileum, with identification of | | | the appendiceal orifice and IC valve. The colonoscopy was | | | performed without difficulty. The patient tolerated the procedure | | | well. The terminal ileum, the appendiceal orifice and the rectum | | | were photographed. The quality of the bowel preparation was | | | good. The terminal ileum, the appendiceal orifice and the | | | rectum were photographed. The quality of the bowel | | | preparation was good. | | | | | | Estimated Blood Loss: Estimated blood loss: none. | | | Scope Withdrawal Time 0 hours 7 minutes 45 seconds Total Procedure | | | Duration Time 0 hours 14 minutes 18 seconds Findings: The | | | entire examined colon appeared normal on direct and retroflexion | | | views. The terminal ileum appeared normal. | | | | | | Impression: - The entire | | | examined colon is normal on direct and retroflexion views. - | | | The examined portion of the ileum was normal. - No specimens | | | collected. | | | | | | Recommendation: - [facility] for ongoing | | | care. - Resume previous diet. - Continue present | | | medications. - Repeat colonoscopy in 10 years for screening | | | purposes. | | | | | | Lee Elizabeth Foley IV, 07/20/2018 12:54:15 PM This | | | report has been signed electronically. Note Initiated On: | | | 07/20/2018 12:20 PM Number of Addenda: 0 [facility] | | | [facility] - Endoscopy Services | | + + + + +---------+ + + | Performing | Address | City/State/Zipcode | Phone Number | | Organization | | | | + +---------+ + + | EXTERNAL LAB | | | | + +---------+ + + Endoscopy Procedures (07/20/2018 11:47 AM PDT) + + | Specimen | + + | | + + + + + | Narrative | Performed At | + + + | Historically converted procedure from [facility] environment | EXTERNAL LAB | | [facility] | | | | | | Patient Name: Doug uDranCedric Procedure Date: | | | 07/20/2018 11:47 AM | | | Date of : 1965 | | | Note Status: Finalized Attending MD: Lee Foley IV , | | | Instrument Name: [id number] Gastroscope | | | | | | Procedure Type: Upper GI endoscopy | | | Indications: 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 | | | | | | Procedure: Pre-Anesthesia Assessment: - | | | Prior to the procedure, a History and Physical was performed, and | | | patient medications and allergies were reviewed. The patient's | | | tolerance of previous anesthesia was also reviewed. The risks | | | and benefits of the procedure and the sedation options and | | | risks were discussed with the patient. All questions were | | | answered, and informed consent was obtained. Prior | | | Anticoagulants: The patient has taken no previous anticoagulant or | | | antiplatelet agents. ASA Grade Assessment: III - A patient with | | | severe systemic disease. After reviewing the risks and | | | benefits, the patient was deemed in satisfactory condition to | | | undergo the procedure. After obtaining informed consent, the | | | endoscope was passed under direct vision. Throughout the | | | procedure, the patient's blood pressure, pulse, and oxygen | | | saturations were monitored continuously. The Endoscope was | | | introduced through the mouth, and advanced to the third part of | | | duodenum. The upper GI endoscopy was accomplished without | | | difficulty. The patient tolerated the procedure well. | | | | | | Estimated Blood Loss: | | | Estimated blood loss was minimal. Total Procedure Duration | | | Time 0 hours 7 minutes 20 seconds Findings: The duodenal | | | bulb, second portion of the duodenum and third portion of the | | | duodenum were normal. Biopsies were taken with a cold forceps for | | | histology. Estimated blood loss was minimal. The entire | | | examined stomach was normal. The examined esophagus was | | | normal. | | | Impression: | | | - Normal duodenal bulb, second portion of the duodenum and | | | third portion of the duodenum. Biopsied. - Normal | | | stomach. No evidence of gastric varices or other potential | | | etiologies for chronic blood loss. - Normal esophagus. No | | | evidence of esophageal varices or other potential etiologies | | | for chronic blood loss | | | | | | Recommendation: - Return patient to [facility] for | | | ongoing care. - Continue present medications. - Await | | | pathology results. - No routine repeat upper endoscopy. | | | - Resume previous diet. - Proceed with colonoscopy. | | | | | | | | | Lee Elizabeth Foley IV, 07/20/2018 12:19:48 PM This report has been signed | | | electronically. Note Initiated On: 07/20/2018 11:47 AM Number of | | | Addenda: 0 [facility] - Endoscopy | | | Services | | + + + + +---------+ + + | Performing | Address | City/State/Zipcode | Phone Number | | Organization | | | | + +---------+ + + | EXTERNAL LAB | | | | + +---------+ + + External Lab: CBC (07/20/2018 5:56 AM PDT) + + +---- + + + | Component | Value | Ref Range | Performed | Pathologist | | | | | At | Signature | + + +---- + + + | WBC | 6.06 | 3.8 0 - 11.00 | EXTERNAL | | | | | K/u L | LAB | | + + +---- + + + | Non- | 2.15 (L) | 4.2 0 - 5.70 | EXTERNAL | | | Red Blood | | M/u L | LAB | | | Cells | | | | | | Counted | | | | | + + +---- + + + | Hemoglobin | 7.8 (L) | 13. 2 - 17.0 | EXTERNAL | | | | | g/d L | LAB | | + + +---- + + + | Hematocrit, | 20.6 (LL)Comment: RESULT | 39. 0 - 50.0 % | EXTERNAL | | | POC | READ BACK BY: HEMANT Chavez | | LAB | | | | @ 7RP 7:20 07/20/18 KB | | | | | | HEMANT Chavez @ 7 7:20 07/20/18 KB | | | | | | | | | | + + +---- + + + | MCV | 95.8 | 80. 0 - 100.0 fl | EXTERNAL | | | | | | LAB | | + + +---- + + + | MCH | 36.4 (H) | 27. 0 - 34.0 pg | EXTERNAL | | | | | | LAB | | + + +---- + + + | MCHC | 38.0 (H) | 32. 0 - 35.5 | EXTERNAL | | | | | g/d L | LAB | | + + +---- + + + | RDW-CV | 93.2 (H) | 37 - 53 fl | EXTERNAL | | | | | | LAB | | + + +---- + + + | Platelet | 94 (L)Comment: | 150 - 400 K/uL | EXTERNAL | | | Count | | | LAB | | | Plasma | | | | | + + +---- + + + | MPV | 7.4Comment: | fl | EXTERNAL | | | | | | LAB | | + + +---- + + + | Differentia | MANUAL | | EXTERNAL | | | l Type | | | LAB | | + + +---- + + + | Segmented | 76 | % | EXTERNAL | | | Neutrophils | | | LAB | | | Manual | | | | | + + +---- + + + | Lymphocytes | 16 | % | EXTERNAL | | | Manual | | | LAB | | + + +---- + + + | Monocytes | 5 | % | EXTERNAL | | | Manual | | | LAB | | + + +---- + + + | Eosinophils | 3 | % | EXTERNAL | | | Manual | | | LAB | | + + +---- + + + | Absolute | 4.61 | 1.9 0 - 7.40 | EXTERNAL | | | Neutrophils | | K/u L | LAB | | + + +---- + + + | Absolute | 0.97 (L) | 1.0 0 - 3.90 | EXTERNAL | | | Lymphocytes | | K/u L | LAB | | + + +---- + + + | Absolute | 0.30 | 0.0 0 - 0.80 | EXTERNAL | | | Monocytes | | K/u L | LAB | | + + +---- + + + | Absolute | 0.18 | 0.0 0 - 0.50 | EXTERNAL | | | Eosinophils | | K/u L | LAB | | + + +---- + + + | RBC | 3+Comment: | | EXTERNAL | | | Morphology | ANISO2+BURRNORMAL PLT | | LAB | | | | MORPHTesting performed | | | | | | at [facility], [address] | | | | | [facility], | | | | | | [place] [address] | | | | | |Testing performed at [facility], [address] [place] [address] | | | | | | | | | | + + +---- + + + + + | Specimen | + + | Blood specimen | | (specimen) | + + + +---------+ + + | Performing | Address | City/State/Zipcode | Phone Number | | Organization | | | | + +---------+ + + | EXTERNAL LAB | | | | + +---------+ + + Comprehensive Metabolic Panel (07/20/2018 5:56 AM PDT) + + + + + + | Component | Value | Ref Range | Performed | Pathologist | | | | | At | Signature | + + + + + + | Na | 138 | 135 - 145 | EXTERNAL | | | | | mmol/L | LAB | | + + + + + + | K | 3.6 | 3.5 - 4.9 | EXTERNAL | | | | | mmol/L | LAB | | + + + + + + | Cl | 102 | 99 - 109 mmol/L | EXTERNAL | | | | | | LAB | | + + + + + + | CO2 | 23 | 23 - 32 mmol/L | EXTERNAL | | | | | | LAB | | + + + + + + | Anion Gap | 17 | 5 - 20 mmol/L | EXTERNAL | | | | | | LAB | | + + + + + + | Glucose, | 109 (H) | 65 - 99 mg/dL | EXTERNAL | | | Fasting | | | LAB | | + + + + + + | BUN | 22 | 8 - 25 mg/dL | EXTERNAL | | | | | | LAB | | + + + + + + | Creatinine | 1.5 (H) | 0.70 - 1.30 | EXTERNAL | | | | | mg/dL | LAB | | + + + + + + | BUN/Creatin | 15 | | EXTERNAL | | | ine Ratio | | | LAB | | + + + + + + | Calcium | 8.1 (L) | 8.5 - 10.5 | EXTERNAL | | | | | mg/dL | LAB | | + + + + + + | Protein, | 7.3 | 6.3 - 8.2 g/dL | EXTERNAL | | | Total | | | LAB | | + + + + + + | Albumin | 2.8 (L) | 3.6 - 5.0 g/dL | EXTERNAL | | | | | | LAB | | + + + + + + | Globulin | 4.5 | 1.3 - 4.9 g/dL | EXTERNAL | | | | | | LAB | | + + + + + + | A/G Ratio | 0.6 (L) | 1.0 - 2.4 | EXTERNAL | | | | | | LAB | | + + + + + + | Bilirubin | 14.5 (H) | 0.1 - 1.5 mg/dL | EXTERNAL | | | Total | | | LAB | | + + + + + + | ALP, | 67 | 35 - 115 U/L | EXTERNAL | | | External | | | LAB | | + + + + + + | AST | 61 (H) | 10 - 45 U/L | EXTERNAL | | | | | | LAB | | + + + + + + | ALT | 17 | 10 - 65 U/L | EXTERNAL | | | | | | LAB | | + + + + + + | Estimated | 49 (L)Comment: GFR <60: | mL/min/1.73m2 | EXTERNAL | | | GFR | CHRONIC KIDNEY DISEASE, | | LAB | | | | IF FOUND OVER A 3 MONTH | | | | | | PERIOD.GFR <15: KIDNEY | | | | | | FAILURE.FOR | | | | | | AMERICANS, MULTIPLY THE | | | | | | CALCULATED GFR BY | | | | | | 1.210.This eGFR is | | | | | | calculated using the | | | | | | MDRD IDMS traceable | | | | | | equation.Testing | | | | | | performed at [facility], [address] | | | | | [address], | | | | | | [place] [address] | | | | + + + + + + + + | Specimen | + + | Blood specimen | | (specimen) | + + + +---------+ + + | Performing | Address | City/State/Zipcode | Phone Number | | Organization | | | | + +---------+ + + | EXTERNAL LAB | | | | + +---------+ + + External Lab: Occult Blood, Screening (07/19/2018 6:00 PM PDT) + + | Specimen | + + | Stool specimen | | (specimen) | + + + + + | Narrative | Performed At | + + + | Fecal Occult Blood NEGATIVE Testing | EXTERNAL LAB | | performed at [facility];[address];[place] [address] | | + + + + +---------+ + + | Performing | Address | City/State/Zipcode | Phone Number | | Organization | | | | + +---------+ + + | EXTERNAL LAB | | | | + +---------+ + + POC Glucose (07/19/2018 11:38 AM PDT) + + + + + + | Component | Value | Ref Range | Performed | Pathologist | | | | | At | Signature | + + + + + + | Glucose, | 120 (H)Comment: Testing | 65 - 99 mg/dL | EXTERNAL | | | Fingerstick | performed at [facility];[address] | | [address] | | | | [address];[place], [place] | | | | | | [address] | | | | + + + + + + + + | Specimen | + + | | + + + +---------+ + + | Performing | Address | City/State/Zipcode | Phone Number | | Organization | | | | + +---------+ + + | EXTERNAL LAB | | | | + +---------+ + + External Lab: EDER (07/19/2018 5:33 AM PDT) + + +---- + + + | Component | Value | Ref Range | Performed | Pathologist | | | | | At | Signature | + + +---- + + + | WBC | 6.82 | 3.8 0 - 11.00 | EXTERNAL | | | | | K/u L | LAB | | + + +---- + + + | Non- | 2.23 (L) | 4.2 0 - 5.70 | EXTERNAL | | | Red Blood | | M/u L | LAB | | | Cells | | | | | | Counted | | | | | + + +---- + + + | Hemoglobin | 8.0 (L) | 13. 2 - 17.0 | EXTERNAL | | | | | g/d L | LAB | | + + +---- + + + | Hematocrit, | 21.5 (L) | 39. 0 - 50.0 % | EXTERNAL | | | POC | | | LAB | | + + +---- + + + | MCV | 96.5 | 80. 0 - 100.0 fl | EXTERNAL | | | | | | LAB | | + + +---- + + + | MCH | 35.9 (H) | 27. 0 - 34.0 pg | EXTERNAL | | | | | | LAB | | + + +---- + + + | MCHC | 37.3 (H) | 32. 0 - 35.5 | EXTERNAL | | | | | g/d L | LAB | | + + +---- + + + | RDW-CV | 95.8 (H) | 37 - 53 fl | EXTERNAL | | | | | | LAB | | + + +---- + + + | Platelet | 78 (L)Comment: SLIDE | 150 - 400 K/uL | EXTERNAL | | | Count | SCANNED, AGREES WITH | | LAB | | | Plasma | AUTOMATED RESULTS. | | | | | |SLIDE SCANNED, AGREES WITH AUTOMATED RESULTS. | | | | | | | | | | + + +---- + + + | MPV | 7.7Comment: | fl | EXTERNAL | | | | | | LAB | | + + +---- + + + | Differentia | MANUAL | | EXTERNAL | | | l Type | | | LAB | | + + +---- + + + | Segmented | 75 | % | EXTERNAL | | | Neutrophils | | | LAB | | | Manual | | | | | + + +---- + + + | % | 2 | % | EXTERNAL | | | Metamyelocy | | | LAB | | | kevin | | | | | + + +---- + + + | Lymphocytes | 15 | % | EXTERNAL | | | Manual | | | LAB | | + + +---- + + + | Monocytes | 3 | % | EXTERNAL | | | Manual | | | LAB | | + + +---- + + + | Eosinophils | 5 | % | EXTERNAL | | | Manual | | | LAB | | + + +---- + + + | Absolute | 5.12 | 1.9 0 - 7.40 | EXTERNAL | | | Neutrophils | | K/u L | LAB | | + + +---- + + + | Absolute | 0.14 (H) | K/u L | EXTERNAL | | | Metamyelocy | | | LAB | | | kevin | | | | | + + +---- + + + | Absolute | 1.02 | 1.0 0 - 3.90 | EXTERNAL | | | Lymphocytes | | K/u L | LAB | | + + +---- + + + | Absolute | 0.20 | 0.0 0 - 0.80 | EXTERNAL | | | Monocytes | | K/u L | LAB | | + + +---- + + + | Absolute | 0.34 | 0.0 0 - 0.50 | EXTERNAL | | | Eosinophils | | K/u L | LAB | | + + +---- + + + | Platelet | DECREASED | | EXTERNAL | | | Estimate | | | LAB | | + + +---- + + + | RBC | 2+Comment: | | EXTERNAL | | | Morphology | ANISO2+BURR1+POLY1+MACRO | | LAB | | | | NORMAL PLT MORPHTesting | | | | | | performed at [facility], [address] | | [address] | | [address], | | | | | | [place] [address] | | | | | |POLY | | | | | |1+ | | | | | |MACRO | | | | | |NORMAL PLT MORPH | | | | | |Testing performed at [facility], [address] [facility] [place] [address] | | | | | | | | | | + + +---- + + + + + | Specimen | + + | Blood specimen | | (specimen) | + + + +---------+ + + | Performing | Address | City/State/Zipcode | Phone Number | | Organization | | | | + +---------+ + + | EXTERNAL LAB | | | | + +---------+ + + Phosphorus (07/19/2018 5:33 AM PDT) + + + + + + | Component | Value | Ref Range | Performed | Pathologist | | | | | At | Signature | + + + + + + | PHOSPHORUS | 3.5Comment: Testing | 2.3 - 4.8 mg/dL | EXTERNAL | | | | performed at [facility], [address] | | LAB | | | | [address], | | | | | | [place] [address] | | | | + + + + + + + + | Specimen | + + | Blood specimen | | (specimen) | + + + +---------+ + + | Performing | Address | City/State/Zipcode | Phone Number | | Organization | | | | + +---------+ + + | EXTERNAL LAB | | | | + +---------+ + + Magnesium (07/19/2018 5:33 AM PDT) + + + + + + | Component | Value | Ref Range | Performed | Pathologist | | | | | At | Signature | + + + + + + | Magnesium | 1.7Comment: Testing | 1.7 - 2.4 mg/dL | EXTERNAL | | | | performed at [facility], [address] | | LAB | | | | [address], | | | | | | [place] [address] | | | | + + + + + + + + | Specimen | + + | Blood specimen | | (specimen) | + + + +---------+ + + | Performing | Address | City/State/Zipcode | Phone Number | | Organization | | | | + +---------+ + + | EXTERNAL LAB | | | | + +---------+ + + Comprehensive Metabolic Panel (07/19/2018 5:33 AM PDT) + + + + + + | Component | Value | Ref Range | Performed | Pathologist | | | | | At | Signature | + + + + + + | Na | 136 | 135 - 145 | EXTERNAL | | | | | mmol/L | LAB | | + + + + + + | K | 3.6 | 3.5 - 4.9 | EXTERNAL | | | | | mmol/L | LAB | | + + + + + + | Cl | 100 | 99 - 109 mmol/L | EXTERNAL | | | | | | LAB | | + + + + + + | CO2 | 21 (L) | 23 - 32 mmol/L | EXTERNAL | | | | | | LAB | | + + + + + + | Anion Gap | 19 | 5 - 20 mmol/L | EXTERNAL | | | | | | LAB | | + + + + + + | Glucose, | 114 (H) | 65 - 99 mg/dL | EXTERNAL | | | Fasting | | | LAB | | + + + + + + | BUN | 24 | 8 - 25 mg/dL | EXTERNAL | | | | | | LAB | | + + + + + + | Creatinine | 1.6 (H) | 0.70 - 1.30 | EXTERNAL | | | | | mg/dL | LAB | | + + + + + + | BUN/Creatin | 15 | | EXTERNAL | | | ine Ratio | | | LAB | | + + + + + + | Calcium | 8.0 (L) | 8.5 - 10.5 | EXTERNAL | | | | | mg/dL | LAB | | + + + + + + | Protein, | 7.1 | 6.3 - 8.2 g/dL | EXTERNAL | | | Total | | | LAB | | + + + + + + | Albumin | 2.6 (L) | 3.6 - 5.0 g/dL | EXTERNAL | | | | | | LAB | | + + + + + + | Globulin | 4.5 | 1.3 - 4.9 g/dL | EXTERNAL | | | | | | LAB | | + + + + + + | A/G Ratio | 0.6 (L) | 1.0 - 2.4 | EXTERNAL | | | | | | LAB | | + + + + + + | Bilirubin | 13.6 (H) | 0.1 - 1.5 mg/dL | EXTERNAL | | | Total | | | LAB | | + + + + + + | ALP, | 77 | 35 - 115 U/L | EXTERNAL | | | External | | | LAB | | + + + + + + | AST | 64 (H) | 10 - 45 U/L | EXTERNAL | | | | | | LAB | | + + + + + + | ALT | 17 | 10 - 65 U/L | EXTERNAL | | | | | | LAB | | + + + + + + | Estimated | 45 (L)Comment: GFR <60: | mL/min/1.73m2 | EXTERNAL | | | GFR | CHRONIC KIDNEY DISEASE, | | LAB | | | | IF FOUND OVER A 3 MONTH | | | | | | PERIOD.GFR <15: KIDNEY | | | | | | FAILURE.FOR | | | | | | AMERICANS, MULTIPLY THE | | | | | | CALCULATED GFR BY | | | | | | 1.210.This eGFR is | | | | | | calculated using the | | | | | | MDRD IDMS traceable | | | | | | equation.Testing | | | | | | performed at [facility], [address] | | | | | | [facility], | | | | | | [place] [address] | | | | + + + + + + + + | Specimen | + + | Blood specimen | | (specimen) | + + + +---------+ + + | Performing | Address | City/State/Zipcode | Phone Number | | Organization | | | | + +---------+ + + | EXTERNAL LAB | | | | + +---------+ + + Hemoglobin and Hematocrit (07/18/2018 6:36 PM PDT) + + + + + + | Component | Value | Ref Range | Performed | Pathologist | | | | | At | Signature | + + + + + + | Hemoglobin | 7.9 (L) | 13.2 - 17.0 | EXTERNAL | | | | | g/dL | LAB | | + + + + + + | Hematocrit, | 22.3 (L)Comment: Testing | 39.0 - 50.0 % | EXTERNAL | | | POC | performed at [facility];[address] | | LAB | | | | [address];[place] | | | | | | [address] | | | | + + + + + + + + | Specimen | + + | | + + + +---------+ + + | Performing | Address | City/State/Zipcode | Phone Number | | Organization | | | | + +---------+ + + | EXTERNAL LAB | | | | + +---------+ + + Culture, Wound, Smear, w/Anaerobe (07/18/2018 4:38 PM PDT) + + | Specimen | + + | | + + + + + | Narrative | Performed At | + + + | Specimen Description OTHER CULTURE | EXTERNAL LAB | | 3+ | | | STAPHYLOCOCCUS AUREUSAbnormal | | | 3+ | | | BETA HEMOLYTIC GROUP G | | | STREPTOCOCCUSAbnormal | | | BETA STREP ORGANISMS ARE PREDICTABLY SUSCEPTIBLE TO PENICILLIN | | | AND CEPHALOSPORINS | | | 2+ | | | NORMAL SKIN CRISPIN ISOLATED Suscepibility for - STAPHYLOCOCCUS | | | AUREUS Penicillin G RESISTANT Resistant | | | Clindamycin SUSCEPTIBLESensitive | | | Erythromycin SUSCEPTIBLESensitive | | | Gentamicin SUSCEPTIBLESensitive | | | Levofloxacin SUSCEPTIBLESensitive | | | Moxifloxacin SUSCEPTIBLESensitive Oxacillin | | | SUSCEPTIBLESensitive Tetracycline | | | SUSCEPTIBLESensitive Trimethoprim + | | | SulfamethoxazoleSUSCEPTIBLESensitive Vancomycin | | | SUSCEPTIBLESensitive | | + + + + +---------+ + + | Performing | Address | City/State/Zipcode | Phone Number | | Organization | | | | + +---------+ + + | EXTERNAL LAB | | | | + +---------+ + + Cytomegalovirus Ab, IgG and IgM (07/18/2018 2:12 PM PDT) + + + + + + | Component | Value | Ref Range | Performed | Pathologist | | | | | At | Signature | + + + + + + | CMV IGG | >10.00 (H)Comment: | U/mL | EXTERNAL | | | | Reference range: 0.00 to | | LAB | | | | 0.59 | | | | | | | | | | | | Negative | | | | | | <0.60 | | | | | | | | | | | | Equivocal 0.60 - | | | | | | 0.69 | | | | | | | | | | | | Positive | | | | | | >0.69 | | | | + + + + + + | CMV IGM | <30.0Comment: Reference | AU/mL | EXTERNAL | | | | range: 0.0 to 29.9 | | LAB | | | | | | | | | | | | | | | | Negative | | | | | | <30.0 | | | | | | | | | | | | Equivocal 30.0 - | | | | | | 34.9 | | | | | | | | | | | | Positive | | | | | | >34.9A positive result | | | | | | is generally indicative | | | | | | of acuteinfection, | | | | | | reactivation or | | | | | | persistent IgM | | | | | | production.Testing | | | | | | performed by [facility], | | | | | | [address] [facility], | | | | | | [facility] [address] | | | | + + + + + + + + | Specimen | + + | | + + + +---------+ + + | Performing | Address | City/State/Zipcode | Phone Number | | Organization | | | | + +---------+ + + | EXTERNAL LAB | | | | + +---------+ + + PATHOLOGY CONSULT REQUEST (07/18/2018 2:12 PM PDT) + + + + + + | Component | Value | Ref Range | Performed | Pathologist | | | | | At | Signature | + + + + + + | Pathologist | Comment: Review of CBC | | EXTERNAL | | | Review 1 | collected 07/18/2018. I | | LAB | | | | agree with the cell | | | | | | counts. The anemia is | | | | | | normocytic and | | | | | | normochromic. There are | | | | | | no schistocytes or other | | | | | | evidence of peripheral | | | | | | destruction. The | | | | | | leukocytes display no | | | | | | significant morphologic | | | | | | changes. Please | | | | | | correlate clinically. | | | | | | Dr. Wong Forrester | | | | | | 07/21/2018 BES/emb | | | | | | Testing performed at | | | | | | [facility] [place];[address] [place] [address] | | | | | | [facility];[place] [address] | | | | + + + + + + + + | Specimen | + + | | + + + +---------+ + + | Performing | Address | City/State/Zipcode | Phone Number | | Organization | | | | + +---------+ + + | EXTERNAL LAB | | | | + +---------+ + + DIOGENES Profile, Reflex (07/18/2018 2:12 PM PDT) + + + + + + | Component | Value | Ref Range | Performed | Pathologist | | | | | At | Signature | + + + + + + | DIOGENES | NegativeComment: | | EXTERNAL | | | | Reference range: | | LAB | | | | NegativeTesting | | | | | | performed at [facility], [address] | | | | | | [address] | | | | | | [place] [address] | | | | + + + + + + | C ANCA | <1:20Comment: Reference | titer | EXTERNAL | | | | range: Neg:<1:20 | | LAB | | + + + + + + | Perinuclear | <1:20Comment: Reference | titer | EXTERNAL | | | (P-ANCA) | range: Neg:<1:20 The | | LAB | | | | presence of positive | | | | | | fluorescence exhibiting | | | | | | P-ANCA or C-ANCApatterns | | | | | | alone is not specific | | | | | | for the diagnosis of | | | | | | Yamilka'sGranulomatosis | | | | | | (WG) or microscopic | | | | | | polyangiitis. Decisions | | | | | | abouttreatment should | | | | | | not be based solely on | | | | | | ANCA IFA results. | | | | | | TheInternational ANCA | | | | | | Group Consensus | | | | | | recommends follow up | | | | | | testing ofpositive sera | | | | | | with both DC-3 and | | | | | | MPO-ANCA enzyme | | | | | | immunoassays. Asmany as | | | | | | 5% serum samples are | | | | | | positive only by | | | | | | EIA.Ref. AM J Clin | | | | | | Pathol 1999;111:[id number]. | | | | | | | | | | + + + + + + | Atypical | <1:20Comment: Reference | titer | EXTERNAL | | | pANCA | range: Neg:<1:20 The | | LAB | | | | atypical pANCA pattern | | | | | | has been observed in a | | | | | | significantpercentage of | | | | | | patients with | | | | | | ulcerative colitis, | | | | | | primary | | | | | | sclerosingcholangitis | | | | | | and autoimmune | | | | | | hepatitis. | | | | + + + + + + | Myeloperoxi | <9.0Comment: Reference | U/mL | EXTERNAL | | | dase | range: 0.0 to 9.0 | | LAB | | | Antibody | | | | | + + + + + + | ANCA | <3.5Comment: Reference | U/mL | EXTERNAL | | | Proteinase | range: 0.0 to 3.5Testing | | LAB | | | 3 | performed by [facility], | | | | | | [address], | | | | | | [facility] [address] | | | | + + + + + + + + | Specimen | + + | Blood specimen | | (specimen) | + + + +---------+ + + | Performing | Address | City/State/Zipcode | Phone Number | | Organization | | | | + +---------+ + + | EXTERNAL LAB | | | | + +---------+ + + VAS Lower Extremity Venous Bilateral (07/18/2018 12:28 PM PDT) + + | Specimen | + + | | + + + + + | Impressions | Performed At | + + + | 1. No evidence of lower extremity deep vein thrombosis. | | | | | + + + + + + | Narrative | Performed At | + + + | DOUG DURAN LOWER EXTREMITY VENOUS DOPPLER BILAT 07/18/2018 | | | 12:28 PM HISTORY: 53 years. Male. Bilateral leg swelling for | | | couple of weeks. Rule out DVT. TECHNIQUE: Bilateral lower | | | extremity venous Doppler performed with color Doppler and spectral | | | Doppler waveform analysis. Duplex Doppler analysis. COMPARISON: | | | None. FINDINGS: Normal compressibility, augmentation of flow, and | | | Doppler flow evident within the deep venous system. No evidence of | | | deep venous thrombosis. | | + + + + + | Procedure Note | + + | Mike Walton - 06/03/2019 11:35 AM PDT DOUG STERN LOWER EXTREMITY VENOUS | | DOPPLER BILAT07/18/2018 12:28 PM HISTORY:53 years. Male. Bilateral leg swelling for | | couple of weeks. Rule out DVT. TECHNIQUE:Bilateral lower extremity venous Doppler | | performed with color Doppler and spectral Doppler waveform analysis. Duplex Doppler | | analysis. COMPARISON:None. FINDINGS:Normal compressibility, augmentation of flow, and | | Doppler flow evident within the deep venous system. No evidence of deep venous | | thrombosis. IMPRESSION: 1. No evidence of lower extremity deep vein thrombosis. | | | |Bilateral lower extremity venous Doppler performed with color Doppler and spectral Doppler waveform analysis. Duplex Doppler analysis. | | | |COMPARISON: | |None. | | | |FINDINGS: | |Normal compressibility, augmentation of flow, and Doppler flow evident within the deep veno us system. No evidence of deep venous thrombosis. | | | |IMPRESSION: | |1. No evidence of lower extremity deep vein thrombosis. | | | | | + + Calcium, Ionized (07/18/2018 11:57 AM PDT) + + + + + + | Component | Value | Ref Range | Performed | Pathologist | | | | | At | Signature | + + + + + + | Calcium | 1.06 (L) | 1.08 - 1.25 | EXTERNAL | | | (Calc) | | mmol/L | LAB | | + + + + + + | pH, Bld | 7.350Comment: Testing | 7.300 - 7.450 | EXTERNAL | | | | performed at [facility];[address] | [address] | | [address];[place], [place] | | | | | | [address] | | | | + + + + + + + + | Specimen | + + | Blood specimen | | (specimen) | + + + +---------+ + + | Performing | Address | City/State/Zipcode | Phone Number | | Organization | | | | + +---------+ + + | EXTERNAL LAB | | | | + +---------+ + + MRSA NAAT (07/18/2018 10:25 AM PDT) + + | Specimen | + + | | + + + + + | Narrative | Performed At | + + + | SOURCE NARES(NOSE) MRSA | EXTERNAL LAB | | PCR NEGATIVE Testing | | | performed at [facility];[address] [place] [address];[place] [address] | | + + + + +---------+ + + | Performing | Address | City/State/Zipcode | Phone Number | | Organization | | | | + +---------+ + + | EXTERNAL LAB | | | | + +---------+ + + ECHO Complete (07/18/2018 10:05 AM PDT) + + | Specimen | + + | | + + + + + | Impressions | Performed At | + + + | 1. Overall left ventricular systolic function is normal with, an EF | | | between 60 - 65 %. 2. Pseudonormal LV diastolic filling pattern, | | | consistent with elevated LA pressure and moderate dysfunction (Grade | | | II). 3. Moderate tricuspid regurgitation present. 4. There is | | | moderate to severe pulmonary hypertension. | | + + + + + + | Narrative | Performed At | + + + | Patient Name: DOUG DURAN Date of : 1965 | | | Performing Physician: Kaushal Jhaveri MD, | | | FACC, FACP, FASNC | | | | | | INDICATIONS Murmur CONCLUSIONS 1. | | | Overall left ventricular systolic function is normal with, an EF | | | between 60 - 65 %. 2. Pseudonormal LV diastolic filling pattern, | | | consistent with elevated LA pressure and moderate dysfunction (Grade | | | II). 3. Moderate tricuspid regurgitation present. 4. There is | | | moderate to severe pulmonary hypertension. FINDINGS -------- | | | Study: A 2-dimensional transthoracic echocardiogram with m-mode, | | | spectral and color flow Doppler was perfomed. Left Ventricle: Overall | | | left ventricular systolic function is normal with, an EF between 60 - | | | 65 %. Left Ventricle: The left ventricle is moderately dilated. | | | Left Ventricle: There is mild concentric left ventricular hypertrophy. | | | Left Ventricle: Pseudonormal LV diastolic filling pattern, | | | consistent with elevated LA pressure and moderate dysfunction (Grade | | | II). Right Ventricle: The right ventricle is moderately enlarged | | | measuring between 3.8 - 4.1 cm. Left Atrium: The left atrium is | | | markedly dilated. Right Atrium: The right atrium is moderately | | | enlarged. Aortic Valve: There is mild aortic valve sclerosis without | | | stenosis. Aortic Valve: There is no evidence of aortic regurgitation. | | | Mitral Valve: The mitral valve is normal. Mitral Valve: Mild mitral | | | regurgitation is present. Tricuspid Valve: The tricuspid valve | | | appears structurally normal. Tricuspid Valve: Moderate tricuspid | | | regurgitation present. Tricuspid Valve: There is moderate to severe | | | pulmonary hypertension. Tricuspid Valve: The right ventricular | | | systolic pressure (pulmonary artery systolic pressure), as measured by | | | Doppler, is 62.38mmHg. Pulmonic Valve: The pulmonic valve is normal. | | | Pericardium: There is no pericardial effusion. IVC/Hepatic Veins: | | | The IVC is dilated (>2.5cm) and collapses <50% with sniff, consistent | | | with central venous pressures of 15-20mmHg. Aorta: The aortic root, | | | ascending aorta and aortic arch are normal. MEASUREMENTS | | | RA Area: 34.29 cm2 Ao asc: 3.51 cm Ao sinus: | | | 3.24 cm IVC: 3.37 cm LA Diam: 5.14 cm EDV(Teich): 202.90 | | | ml IVSd: 1.21 cm LVIDd: 6.32 cm LVPWd: 1.24 cm LVOT Diam: | | | 2.15 cm %FS: 35.47 % EF(Teich): 63.83 % ESV(Teich): | | | 73.37 ml IVSs: 1.56 cm LVIDs: 4.08 cm LVPWs: 1.85 cm | | | SV(Teich): 129.53 ml RVIDd: 4.05 cm LAESV(A-L): 163.34 ml | | | LAESV Index (A-L): 73.91 ml/m2 LAAs A2C: 39.81 cm2 LAESV A-L | | | A2C: 182.72 ml LALs A2C: 7.36 cm LAAs A4C: 35.59 cm2 LAESV | | | A-L A4C: 145.01 ml LALs A4C: 7.41 cm TAPSE: 2.93 cm HR: | | | 74.01 BPM AV maxP.44 mmHg AV meanP.05 mmHg AV | | | Vmax: 2.14 m/s AV Vmean: 1.49 m/s AV VTI: 47.25 cm BOOM | | | Vmax: 2.41 cm2 BOOM (VTI): 2.69 cm2 AVAI Vmax: 0.00 cm2/m2 | | | AVAI (VTI): 0.00 cm2/m2 LVCI Dopp: 4.23 l/minm2 LVCO Dopp: | | | 9.36 l/min HR: 73.49 BPM LVOT maxP.16 mmHg LVOT meanPG: | | | 4.88 mmHg LVSI Dopp: 57.66 ml/m2 LVSV Dopp: 127.43 ml LVOT | | | Vmax: 1.42 m/s LVOT Vmean: 1.05 m/s LVOT VTI: 35.08 cm MV | | | A Mango: 1.07 m/s MV DecT: 280.31 ms MV E Mango: 1.56 m/s MV | | | E/A Ratio: 1.45 MV PHT: 78.10 ms MVA By PHT: 2.81 cm2 MV A | | | Dur: 179.82 ms Septal e': 0.08 m/s Septal E/e': 18.57 | | | Lateral e': 0.08 m/s Lateral E/e': 18.00 HR: 152.31 BPM PV | | | maxP.98 mmHg PV meanP.73 mmHg PV Vmax: 1.11 m/s | | | PV Vmean: 0.77 m/s PV VTI: 25.35 cm PV maxP.07 mmHg | | | PV Vmax: 1.73 m/s RAP: 15 mmHg RV S': 0.19 m/s RVSP: | | | 62.37 mmHg TR maxP.37 mmHg TR Vmax: 3.44 m/s | | | Document Advisor: Authenticated by: Kaushal Jhaveri MD, NICK, DONA, | | | LEO Report Date/Time: -- 66_[id number]_20:6:15 | | + + + + + | Procedure Note | + + | Mike Walton Conversion - 06/03/2019 11:35 AM PDT Patient Name: Kristie DURAN of | | : 1965 Performing Physician: Kaushal Jhaveri MD, NICK, | | SHAP, | | FASELI INDICATIONS--------- | | --Murmur CONCLUSIONS 1. Overall left ventricular systolic function is normal | | with, an EF between 60 - 65 %.2. Pseudonormal LV diastolic filling pattern, consistent | | with elevated LA pressure and moderate dysfunction (Grade II).3. Moderate tricuspid | | regurgitation present.4. There is moderate to severe pulmonary hypertension. | | FINDINGS--------Study: A 2-dimensional transthoracic echocardiogram with m-mode, | | spectral and color flow Doppler was perfomed.Left Ventricle: Overall left ventricular | | systolic function is normal with, an EF between 60 - 65 %.Left Ventricle: The left | | ventricle is moderately dilated.Left Ventricle: There is mild concentric left | | ventricular hypertrophy.Left Ventricle: Pseudonormal LV diastolic filling pattern, | | consistent with elevated LA pressure and moderate dysfunction (Grade II).Right | | Ventricle: The right ventricle is moderately enlarged measuring between 3.8 - 4.1 | | cm.Left Atrium: The left atrium is markedly dilated.Right Atrium: The right atrium is | | moderately enlarged.Aortic Valve: There is mild aortic valve sclerosis without | | stenosis.Aortic Valve: There is no evidence of aortic regurgitation.Mitral Valve: The | | mitral valve is normal.Mitral Valve: Mild mitral regurgitation is present.Tricuspid | | Valve: The tricuspid valve appears structurally normal.Tricuspid Valve: Moderate | | tricuspid regurgitation present.Tricuspid Valve: There is moderate to severe pulmonary | | hypertension.Tricuspid Valve: The right ventricular systolic pressure (pulmonary artery | | systolic pressure), as measured by Doppler, is 62.38mmHg.Pulmonic Valve: The pulmonic | | valve is normal.Pericardium: There is no pericardial effusion.IVC/Hepatic Veins: The IVC | | is dilated (>2.5cm) and collapses <50% with sniff, consistent with central venous | | pressures of 15-20mmHg.Aorta: The aortic root, ascending aorta and aortic arch are | | normal. MEASUREMENTS RA Area: 34.29 cm2Ao asc: 3.51 cmAo sinus: 3.24 | | cmIVC: 3.37 cmLA Diam: 5.14 cmEDV(Teich): 202.90 mlIVSd: 1.21 cmLVIDd: 6.32 | | cmLVPWd: 1.24 cmLVOT Diam: 2.15 cm%FS: 35.47 %EF(Teich): 63.83 %ESV(Teich): | | 73.37 mlIVSs: 1.56 cmLVIDs: 4.08 cmLVPWs: 1.85 cmSV(Teich): 129.53 mlRVIDd: | | 4.05 cmLAESV(A-L): 163.34 mlLAESV Index (A-L): 73.91 ml/m2LAAs A2C: 39.81 [id number] | | A-L A2C: 182.72 mlLALs A2C: 7.36 cmLAAs A4C: 35.59 [id number] A-L A4C: 145.01 | | mlLALs A4C: 7.41 cmTAPSE: 2.93 cmHR: 74.01 BPMAV maxP.44 mmHgAV meanPG: | | 10.05 mmHgAV Vmax: 2.14 m/Rema Vmean: 1.49 m/Rema VTI: 47.25 cmAVA Vmax: 2.41 | | cm2AVA (VTI): 2.69 [id number] Vmax: 0.00 cm2/m2AVAI (VTI): 0.00 cm2/m2LVCI Dopp: | | 4.23 l/[id number] Dopp: 9.36 l/minHR: 73.49 BPMLVOT maxP.16 mmHgLVOT meanPG: | | 4.88 mmHgLVSI Dopp: 57.66 ml/m2LVSV Dopp: 127.43 mlLVOT Vmax: 1.42 m/sLVOT Vmean: | | 1.05 m/sLVOT VTI: 35.08 cmMV A Mango: 1.07 m/sMV DecT: 280.31 msMV E Mango: 1.56 | | m/sMV E/A Ratio: 1.45MV PHT: 78.10 msMVA By PHT: 2.81 cm2MV A Dur: 179.82 | | msSeptal e': 0.08 m/sSeptal E/e': 18.57Lateral e': 0.08 m/sLateral E/e': | | 18.00HR: 152.31 BPMPV maxP.98 mmHgPV meanP.73 mmHgPV Vmax: 1.11 m/sPV | | Vmean: 0.77 m/sPV VTI: 25.35 cmPV maxP.07 mmHgPV Vmax: 1.73 m/sRAP: 15 | | mmHgRV S': 0.19 m/sRVSP: 62.37 mmHgTR maxP.37 mmHgTR Vmax: 3.44 m/s | | Document Advisor: Dorothyticated by: Kaushal Jhaveri MD, FACC, FACP, FASNCReport Date/Time: -- | | [id number]:15 IMPRESSION: 1. Overall left ventricular systolic function is | | normal with, an EF between 60 - 65 %.2. Pseudonormal LV diastolic filling pattern, | | consistent with elevated LA pressure and moderate dysfunction (Grade II).3. Moderate | | tricuspid regurgitation present.4. There is moderate to severe pulmonary hypertension. | |LA Diam: 5.14 cm | |EDV(Teich): 202.90 ml | |IVSd: 1.21 cm | |LVIDd: 6.32 cm | |LVPWd: 1.24 cm | |LVOT Diam: 2.15 cm | |%FS: 35.47 % | |EF(Teich): 63.83 % | |ESV(Teich): 73.37 ml | |IVSs: 1.56 cm | |LVIDs: 4.08 cm | |LVPWs: 1.85 cm | |SV(Teich): 129.53 ml | |RVIDd: 4.05 cm | |LAESV(A-L): 163.34 ml | |LAESV Index (A-L): 73.91 ml/m2 | |LAAs A2C: 39.81 cm2 | |LAESV A-L A2C: 182.72 ml | |LALs A2C: 7.36 cm | |LAAs A4C: 35.59 cm2 | |LAESV A-L A4C: 145.01 ml | |LALs A4C: 7.41 cm | |TAPSE: 2.93 cm | |HR: 74.01 BPM | |AV maxP.44 mmHg | |AV meanP.05 mmHg | |AV Vmax: 2.14 m/s | |AV Vmean: 1.49 m/s | |AV VTI: 47.25 cm | |BOOM Vmax: 2.41 cm2 | |BOOM (VTI): 2.69 cm2 | |AVAI Vmax: 0.00 cm2/m2 | |AVAI (VTI): 0.00 cm2/m2 | |LVCI Dopp: 4.23 l/minm2 | |LVCO Dopp: 9.36 l/min | |HR: 73.49 BPM | |LVOT maxP.16 mmHg | |LVOT meanP.88 mmHg | |LVSI Dopp: 57.66 ml/m2 | |LVSV Dopp: 127.43 ml | |LVOT Vmax: 1.42 m/s | |LVOT Vmean: 1.05 m/s | |LVOT VTI: 35.08 cm | |MV A Mango: 1.07 m/s | |MV DecT: 280.31 ms | |MV E Mango: 1.56 m/s | |MV E/A Ratio: 1.45 | |MV PHT: 78.10 ms | |MVA By PHT: 2.81 cm2 | |MV A Dur: 179.82 ms | |Septal e': 0.08 m/s | |Septal E/e': 18.57 | |Lateral e': 0.08 m/s | |Lateral E/e': 18.00 | |HR: 152.31 BPM | |PV maxP.98 mmHg | |PV meanP.73 mmHg | |PV Vmax: 1.11 m/s | |PV Vmean: 0.77 m/s | |PV VTI: 25.35 cm | |PV maxP.07 mmHg | |PV Vmax: 1.73 m/s | |RAP: 15 mmHg | |RV S': 0.19 m/s | |RVSP: 62.37 mmHg | |TR maxP.37 mmHg | |TR Vmax: 3.44 m/s | | | |Document Advisor: JR | |Authenticated by: Kaushal Jhaveri MD, FAC, FACP, [facility] | |Report Date/Time: -- 09_[id number]:6:15 | | | |IMPRESSION: | |1. Overall left ventricular systolic function is normal with, an EF between 60 - 65 %. | |2. Pseudonormal LV diastolic filling pattern, consistent with elevated LA pressure and mode rate dysfunction (Grade II). | |3. Moderate tricuspid regurgitation present. | |4. There is moderate to severe pulmonary hypertension. | + + Hepatic Function Panel (07/18/2018 9:30 AM PDT) + + + + + + | Component | Value | Ref Range | Performed | Pathologist | | | | | At | Signature | + + + + + + | Protein, | 7.7 | 6.3 - 8.2 g/dL | EXTERNAL | | | Total | | | LAB | | + + + + + + | Albumin | 3.0 (L) | 3.6 - 5.0 g/dL | EXTERNAL | | | | | | LAB | | + + + + + + | Bilirubin | 11.9 (H) | 0.1 - 1.5 mg/dL | EXTERNAL | | | Total | | | LAB | | + + + + + + | Bilirubin | 3.5 (H) | 0.0 - 0.3 mg/dL | EXTERNAL | | | Direct | | | LAB | | + + + + + + | ALP, | 91 | 35 - 115 U/L | EXTERNAL | | | External | | | LAB | | + + + + + + | AST | 64 (H) | 10 - 45 U/L | EXTERNAL | | | | | | LAB | | + + + + + + | ALT | 18Comment: Testing | 10 - 65 U/L | EXTERNAL | | | | performed at [facility], [address] | | LAB | | | | [place], | | | | | | [place] [address] | | | | + + + + + + + + | Specimen | + + | Blood specimen | | (specimen) | + + + +---------+ + + | Performing | Address | City/State/Zipcode | Phone Number | | Organization | | | | + +---------+ + + | EXTERNAL LAB | | | | + +---------+ + + Hemoglobin and Hematocrit (07/18/2018 9:25 AM PDT) + + + + + + | Component | Value | Ref Range | Performed | Pathologist | | | | | At | Signature | + + + + + + | Hemoglobin | 6.4 (LL)Comment: RESULT | 13.2 - 17.0 | EXTERNAL | | | | READ BACK BY:JULIO Vega ON | g/dL | LAB | | | | [id number] AT [address] [facility]. | | | | | | | | | | | | | | | | + + + + + + | Hematocrit, | 17.4 (LL)Comment: RESULT | 39.0 - 50.0 % | EXTERNAL | | | POC | READ BACK BY: JULIO Vega ON | | LAB | | | | [id number] AT [address] [facility]. | | | | | | Testing performed at | | | | | | [facility];[address];[place] [address] | | | | + + + + + + + + | Specimen | + + | | + + + +---------+ + + | Performing | Address | City/State/Zipcode | Phone Number | | Organization | | | | + +---------+ + + | EXTERNAL LAB | | | | + +---------+ + + Hepatitis Panel, Chronic (07/18/2018 9:25 AM PDT) + + + + + + | Component | Value | Ref Range | Performed | Pathologist | | | | | At | Signature | + + + + + + | Hep A Total | REACTIVE (A) | | EXTERNAL | | | Ab Interp | | | LAB | | + + + + + + | HEP B | NON REACTIVE | | EXTERNAL | | | SURFACE | | | LAB | | | ANTIBODY | | | | | + + + + + + | Hepatitis B | NON REACTIVE | | EXTERNAL | | | Core Ab | | | LAB | | | Total | | | | | + + + + + + | HEP B | <0.35Comment: <1.00 | IV | EXTERNAL | | | SURFACE | Non Immune1.00 | | LAB | | | ANTIBODY | OR MORE Indicates | | | | | | vaccine response or | | | | | | response to HBV | | | | | | infection. An Index | | | | | | Value (IV) of 1.00 is | | | | | | equivalent to 10 mIU/mL. | | | | | | Samples with an IV of | | | | | | 1.00 or greater are | | | | | | considered reactive | | | | | | (protected) in | | | | | | accordance with CDC | | | | | | Guidelines. | | | | + + + + + + | HCV Ab | NON REACTIVE | | EXTERNAL | | | | | | LAB | | + + + + + + | Hepatitis | Current or past HAV | | EXTERNAL | | | Interpretat | infection. No serologic | | LAB | | | ion | evidence of HCV | | | | | | infection or HBV | | | | | | infection or | | | | | | vaccination.Comment: | | | | | | Testing performed at | | | | | | [facility], [address] [facility] | | | | | | [place] | | | | | | [address] | | | | + + + + + + + + | Specimen | + + | | + + + +---------+ + + | Performing | Address | City/State/Zipcode | Phone Number | | Organization | | | | + +---------+ + + | EXTERNAL LAB | | | | + +---------+ + + Sedimentation rate, automated (07/18/2018 9:25 AM PDT) + + + + + + | Component | Value | Ref Range | Performed | Pathologist | | | | | At | Signature | + + + + + + | Sed Rate | 4Comment: Testing | 0 - 20 mm/Hr | EXTERNAL | | | | performed at [facility] | | LAB | | | | [address];[place] | | | | | | [address] | | | | + + + + + + + + | Specimen | + + | Blood specimen | | (specimen) | + + + +---------+ + + | Performing | Address | City/State/Zipcode | Phone Number | | Organization | | | | + +---------+ + + | EXTERNAL LAB | | | | + +---------+ + + C-Reactive Protein (07/18/2018 9:25 AM PDT) + + + + + + | Component | Value | Ref Range | Performed | Pathologist | | | | | At | Signature | + + + + + + | CRP | 0.7 (H)Comment: Testing | mg/dL | EXTERNAL | | | | performed at [facility], [address] | | LAB | | | | [place] [address], | | | | | | [place] [address] | | | | + + + + + + + + | Specimen | + + | Blood specimen | | (specimen) | + + + +---------+ + + | Performing | Address | City/State/Zipcode | Phone Number | | Organization | | | | + +---------+ + + | EXTERNAL LAB | | | | + +---------+ + + Lactate Dehydrogenase (07/18/2018 9:25 AM PDT) + + + + + + | Component | Value | Ref Range | Performed | Pathologist | | | | | At | Signature | + + + + + + | LDH TOTAL | 403 (H)Comment: Testing | 115 - 225 U/L | EXTERNAL | | | | performed at [facility], [address] | | LAB | | | | [address] [facility], | | | | | | [place] [address] | | | | + + + [...] + +---------+ + + External Lab: CBC (07/18/2018 6:44 AM PDT) + + + + + + | Component | Value | Ref Range | Performed | Pathologist | | | | | At | Signature | + + + + + + | WBC | 5.69 | 3.80 - 11.00 | EXTERNAL | | | | | K/uL | LAB | | + + + + + + | Non- | 1.65 (L) | 4.20 - 5.70 | EXTERNAL | | | Red Blood | | M/uL | LAB | | | Cells | | | | | | Counted | | | | | + + + + + + | Hemoglobin | 6.4 (LL)Comment: HGB | 13.2 - 17.0 | EXTERNAL | | | | PHONED TO 7RP JONATHON W AT | g/dL | LAB | | | | 0735 BY LJREAD BACK | | | | | | RESULTS VERIFIED | | | | | | | | | | + + + + + + | Hematocrit, | 17.6 (LL)Comment: HCT | 39.0 - 50.0 % | EXTERNAL | | | POC | PHONED TO 7RP JONATHON W AT | | LAB | | | | 0735 BY LJREAD BACK | | | | | | RESULTS VERIFIED | | | | | | | | | | + + + + + + | MCV | 106.8 (H) | 80.0 - 100.0 fl | EXTERNAL | | | | | | LAB | | + + + + + + | MCH | 38.7 (H) | 27.0 - 34.0 pg | EXTERNAL | | | | | | LAB | | + + + + + + | MCHC | 36.3 (H) | 32.0 - 35.5 | EXTERNAL | | | | | g/dL | LAB | | + + + + + + | RDW-CV | 68.7 (H) | 37 - 53 fl | EXTERNAL | | | | | | LAB | | + + + + + + | Platelet | 81 (L) | 150 - 400 K/uL | EXTERNAL | | | Count | | | LAB | | | Plasma | | | | | + + + + + + | MPV | 7.7 | fl | EXTERNAL | | | | | | LAB | | + + + + + + | Differentia | AUTOMATED | | EXTERNAL | | | l Type | | | LAB | | + + + + + + | % Segmented | 64.15 | % | EXTERNAL | | | | | | LAB | | | Neutrophils | | | | | + + + + + + | % | 21.88 | % | EXTERNAL | | | Lymphocytes | | | LAB | | + + + + + + | % Monocytes | 8.18 | % | EXTERNAL | | | | | | LAB | | + + + + + + | % | 5.44 | % | EXTERNAL | | | Eosinophils | | | LAB | | + + + + + + | % Basophils | 0.35 | % | EXTERNAL | | | | | | LAB | | + + + + + + | Absolute | 3.65 | 1.90 - 7.40 | EXTERNAL | | | Segmented | | K/uL | LAB | | | Neutrophils | | | | | + + + + + + | Absolute | 1.25 | 1.00 - 3.90 | EXTERNAL | | | Lymphocytes | | K/uL | LAB | | + + + + + + | Absolute | 0.47 | 0.00 - 0.80 | EXTERNAL | | | Monocytes | | K/uL | LAB | | + + + + + + | Absolute | 0.31 | 0.00 - 0.50 | EXTERNAL | | | Eosinophils | | K/uL | LAB | | + + + + + + | Absolute | 0.02 | 0.00 - 0.10 | EXTERNAL | | | Basophils | | K/uL | LAB | | + + + + + + | RBC | 2+ | | EXTERNAL | | | Morphology | Comment: | | LAB | | | | ANISO | | | | | | 1+ | | | | | | MACRO | | | | | | 1+ | | | | | | ELIESER | | | | | | | | | | + + + + + + | Platelet | DECREASEDComment: | | EXTERNAL | | | Estimate | Testing performed at | | LAB | | | | [facility] [place] [facility];[address] | | | | | [facility];[place] [address] | | | | + + + + + + + + | Specimen | + + | Blood specimen | | (specimen) | + + + +---------+ + + | Performing | Address | City/State/Zipcode | Phone Number | | Organization | | | | + +---------+ + + | EXTERNAL LAB | | | | + +---------+ + + Phosphorus (07/18/2018 6:44 AM PDT) + + + + + + | Component | Value | Ref Range | Performed | Pathologist | | | | | At | Signature | + + + + + + | PHOSPHORUS | 3.4Comment: Testing | 2.3 - 4.8 mg/dL | EXTERNAL | | | | performed at [facility] [place] [facility] | | LAB | | | | [address];[place], [place] | | | | | | [id number] | | | | + + + + + + + + | Specimen | + + | Blood specimen | | (specimen) | + + + +---------+ + + | Performing | Address | City/State/Zipcode | Phone Number | | Organization | | | | + +---------+ + + | EXTERNAL LAB | | | | + +---------+ + + Magnesium (07/18/2018 6:44 AM PDT) + + + + + + | Component | Value | Ref Range | Performed | Pathologist | | | | | At | Signature | + + + + + + | Magnesium | 1.7Comment: Testing | 1.7 - 2.4 mg/dL | EXTERNAL | | | | performed at [facility];[address] | | LAB | | | | [address];[place], [place] | | | | | | [address] | | | | + + + + + + + + | Specimen | + + | Blood specimen | | (specimen) | + + + +---------+ + + | Performing | Address | City/State/Zipcode | Phone Number | | Organization | | | | + +---------+ + + | EXTERNAL LAB | | | | + +---------+ + + Comprehensive Metabolic Panel (07/18/2018 6:44 AM PDT) + + + + + + | Component | Value | Ref Range | Performed | Pathologist | | | | | At | Signature | + + + + + + | Na | 135 | 135 - 145 | EXTERNAL | | | | | mmol/L | LAB | | + + + + + + | K | 3.6 | 3.5 - 4.9 | EXTERNAL | | | | | mmol/L | LAB | | + + + + + + | Cl | 100 | 99 - 109 mmol/L | EXTERNAL | | | | | | LAB | | + + + + + + | CO2 | 25 | 23 - 32 mmol/L | EXTERNAL | | | | | | LAB | | + + + + + + | Anion Gap | 14 | 5 - 20 mmol/L | EXTERNAL | | | | | | LAB | | + + + + + + | Glucose, | 91 | 65 - 99 mg/dL | EXTERNAL | | | Fasting | | | LAB | | + + + + + + | BUN | 32 (H) | 8 - 25 mg/dL | EXTERNAL | | | | | | LAB | | + + + + + + | Creatinine | 1.8 (H) | 0.70 - 1.30 | EXTERNAL | | | | | mg/dL | LAB | | + + + + + + | BUN/Creatin | 18 | | EXTERNAL | | | ine Ratio | | | LAB | | + + + + + + | Calcium | 7.7 (L) | 8.5 - 10.5 | EXTERNAL | | | | | mg/dL | LAB | | + + + + + + | Protein, | 7.4 | 6.3 - 8.2 g/dL | EXTERNAL | | | Total | | | LAB | | + + + + + + | Albumin | 2.6 (L) | 3.6 - 5.0 g/dL | EXTERNAL | | | | | | LAB | | + + + + + + | Globulin | 4.8 | 1.3 - 4.9 g/dL | EXTERNAL | | | | | | LAB | | + + + + + + | A/G Ratio | 0.6 (L) | 1.0 - 2.4 | EXTERNAL | | | | | | LAB | | + + + + + + | Bilirubin | 11.8 (H) | 0.1 - 1.5 mg/dL | EXTERNAL | | | Total | | | LAB | | + + + + + + | ALP, | 96 | 35 - 115 U/L | EXTERNAL | | | External | | | LAB | | + + + + + + | AST | 63 (H) | 10 - 45 U/L | EXTERNAL | | | | | | LAB | | + + + + + + | ALT | 19 | 10 - 65 U/L | EXTERNAL | | | | | | LAB | | + + + + + + | Estimated | 40 (L)Comment: GFR <60: | mL/min/1.73m2 | EXTERNAL | | | GFR | CHRONIC KIDNEY DISEASE, | | LAB | | | | IF FOUND OVER A 3 MONTH | | | | | | PERIOD.GFR <15: KIDNEY | | | | | | FAILURE.FOR | | | | | | AMERICANS, MULTIPLY THE | | | | | | CALCULATED GFR BY | | | | | | 1.210.This eGFR is | | | | | | calculated using the | | | | | | MDRD IDTX traceable | | | | | | equation.Testing | | | | | | performed at [facility];[address] | | | | | | [facility];[place], [place] | | | | | | [address] | | | | + + + + + + + + | Specimen | + + | Blood specimen | | (specimen) | + + + +---------+ + + | Performing | Address | City/State/Zipcode | Phone Number | | Organization | | | | + +---------+ + + | EXTERNAL LAB | | | | + +---------+ + + US Renal Limited (07/18/2018 12:01 AM PDT) + + | Specimen | + + | | + + + + + | Impressions | Performed At | + + + | 1. Normal renal ultrasound exam. 2. Post void bladder residual | | | of 194 cc. 3. Splenomegaly. RADIA Electronically signed by | | | Ignacio Kenyon MD on Jul 18 2018 1:32AM Referring Provider Line: | | | [phone] ID: [id number] | | + + + + + + | Narrative | Performed At | + + + | EXAM: RENAL ULTRASOUND EXAM DATE: 07/18/2018 12:03 AM. | | | CLINICAL HISTORY: Renal kidneys only, for cullen. COMPARISON: None. | | | TECHNIQUE: Real-time scanning was performed with static images | | | obtained. FINDINGS: Right Kidney: 12.4 x 9.0 x 6.5 cm. Normal | | | echotexture with no stones, contour-deforming masses, or | | | hydronephrosis. Left Kidney: 12.9 x 5.3 x 6.2 cm. Normal | | | echotexture with no stones, contour-deforming masses, or | | | hydronephrosis. Bladder: Bilateral jets seen. The prevoid bladder | | | volume was 758 cc. The postvoid bladder volume was 194 cc. Other: | | | The spleen measures 21.3 x 7.5 x 20.8 cm. | | + + + + + | Procedure Note | + + | Atnon, Rad Conversion - 06/03/2019 11:35 AM PDT EXAM:RENAL ULTRASOUND EXAM DATE: | | 07/18/2018 12:03 AM. CLINICAL HISTORY: Renal kidneys only, for cullen. COMPARISON: None. | | TECHNIQUE: Real-time scanning was performed with static images obtained. FINDINGS:Right | | Kidney: 12.4 x 9.0 x 6.5 cm. Normal echotexture with no stones, contour-deforming | | masses, or hydronephrosis. Left Kidney: 12.9 x 5.3 x 6.2 cm. Normal echotexture with no | | stones, contour-deforming masses, or hydronephrosis. Bladder: Bilateral jets seen. The | | prevoid bladder volume was 758 cc. The postvoid bladder volume was 194 cc. Other: The | | spleen measures 21.3 x 7.5 x 20.8 cm. IMPRESSION: 1. Normal renal ultrasound exam.2. | | Post void bladder residual of 194 cc.3. Splenomegaly. RADIA Electronically signed by | | Ignacio Kenyon MD on Jul 18 2018 1:32AM Referring Provider Line: [phone] | | ID: [id number] | |FINDINGS: | |Right Kidney: 12.4 x 9.0 x 6.5 cm. Normal echotexture with no stones, contour-deforming mas ses, or hydronephrosis. | | | |Left Kidney: 12.9 x 5.3 x 6.2 cm. Normal echotexture with no stones, contour-deforming mass es, or hydronephrosis. | | | |Bladder: Bilateral jets seen. The prevoid bladder volume was 758 cc. The postvoid bladder v olume was 194 cc. | | | |Other: The spleen measures 21.3 x 7.5 x 20.8 cm. | | | |IMPRESSION: | | | |1. Normal renal ultrasound exam. | |2. Post void bladder residual of 194 cc. | |3. Splenomegaly. | | | |RADIA | | | |Electronically signed by Ignacio Kenyon MD on Jul 18 2018 1:32AM Referring Provider Misty e: [phone] ID: [id number] | + + Sodium, Urine, Random (07/17/2018 10:40 PM PDT) + + + + + + | Component | Value | Ref Range | Performed | Pathologist | | | | | At | Signature | + + + + + + | Sodium, | 16Comment: NO NORMAL | mmol/L | EXTERNAL | | | Urine | RANGE ESTABLISHEDTesting | | LAB | | | Random | performed at [facility], [address] | | | | | [address], | | | | | | [place] [address] | | | | + + + + + + + + | Specimen | + + | Urine specimen | | (specimen) | + + + +---------+ + + | Performing | Address | City/State/Zipcode | Phone Number | | Organization | | | | + +---------+ + + | EXTERNAL LAB | | | | + +---------+ + + Creatinine, Urine, Random (07/17/2018 10:40 PM PDT) + + + + + + | Component | Value | Ref Range | Performed | Pathologist | | | | | At | Signature | + + + + + + | Creatinine, | 51.0Comment: NO NORMAL | mg/dL | EXTERNAL | | | Urine | RANGE ESTABLISHEDTesting | | LAB | | | | performed at [facility], [address] | | | | | [address] [facility], | | | | | | [place] [address] | | | | + + + + + + + + | Specimen | + + | Urine specimen | | (specimen) | + + + +---------+ + + | Performing | Address | City/State/Zipcode | Phone Number | | Organization | | | | + +---------+ + + | EXTERNAL LAB | | | | + +---------+ + + Urinalysis, Microscopic Only (07/17/2018 10:40 PM PDT) + + + + + + | Component | Value | Ref Range | Performed | Pathologist | | | | | At | Signature | + + + + + + | WBC, UA | 3-5Comment: | 0 - 5 /hpf | EXTERNAL | | | | | | LAB | | + + + + + + | RBC, UA | >100 | 0 - 2 /hpf | EXTERNAL | | | | | | LAB | | + + + + + + | Epithelial | 3-5 | /lpf | EXTERNAL | | | Cells | | | LAB | | + + + + + + | Bacteria, | 3+ (A) | | EXTERNAL | | | UA | | | LAB | | + + + + + + | Crystals | SEE BELOWComment: 1+ | /hpf | EXTERNAL | | | | AMORPHOUS | | LAB | | | | CRYSTALSTesting | | | | | | performed at [facility], [address] | | | | | [address], | | | | | | [place] [address] | | | | + + + + + + + + | Specimen | + + | | + + + +---------+ + + | Performing | Address | City/State/Zipcode | Phone Number | | Organization | | | | + +---------+ + + | EXTERNAL LAB | | | | + +---------+ + + Urinalysis with Microscopic if Indicated (07/17/2018 10:40 PM PDT) + + + + + + | Component | Value | Ref Range | Performed | Pathologist | | | | | At | Signature | + + + + + + | Color | DK YELLOW | | EXTERNAL | | | | | | LAB | | + + + + + + | Clarity, | HAZY | | EXTERNAL | | | Urine | | | LAB | | + + + + + + | Specific | 1.005 | 1.002 - 1.030 | EXTERNAL | | | [place], | | | LAB | | | Urine | | | | | + + + + + + | Leukocyte | NEGATIVEComment: | | EXTERNAL | | | Esterase, | | | LAB | | | Urine | | | | | + + + + + + | Nitrite, | NEGATIVE | | EXTERNAL | | | Urine | | | LAB | | + + + + + + | Urobilinoge | 2.0 (H) | mg/dL | EXTERNAL | | | n, Urine | | | LAB | | + + + + + + | Protein, | NEGATIVE | mg/dL | EXTERNAL | | | Urine | | | LAB | | + + + + + + | pH, Urine | 5.0 | 5.0 - 8.0 | EXTERNAL | [...] + + + + | Glucose, | NEGATIVEComment: Testing | mg/dL | EXTERNAL | | | Urine | performed at [facility], [address] | | LAB | | | | [address], | | | | | | [place] [address] | | | | + + + + + + + + | Specimen | + + | Urine specimen | | (specimen) | + + + +---------+ + + | Performing | Address | City/State/Zipcode | Phone Number | | Organization | | | | + +---------+ + + | EXTERNAL LAB | | | | + +---------+ + + XR Chest 2 Vws (07/17/2018 9:12 PM PDT) + + | Specimen | + + | | + + + + + | Impressions | Performed At | + + + | 1. Cardiomegaly and mild central pulmonary venous congestion. 2. | | | Suspect small left pleural effusion. | | + + + + + + | Narrative | Performed At | + + + | DOUG DURAN 1965 53 years Male XR CHEST 2 VIEW FRONTAL | | | AND LATERAL 07/17/2018 9:12 PM INDICATION: Shortness of breath | | | COMPARISON: None. TECHNIQUE: Two view chest, PA and lateral views | | | FINDINGS: Mild to moderate cardiac enlargement. Mild prominence | | | central pulmonary vascular markings. Mild blunting of the left | | | costophrenic angle on the lateral film. Slight asymmetric lucent area | | | at the left costophrenic angle on the frontal film, of uncertain | | | significance. | | + + + + + | Procedure Note | + + | Anton, Rad Conversion - 06/03/2019 11:35 AM PDT DOUG Wong [id number] years MaleXR | | CHEST 2 VIEW FRONTAL AND LATERAL07/17/2018 9:12 PM INDICATION: Shortness of breath | | COMPARISON: None. TECHNIQUE: Two view chest, PA and lateral views FINDINGS: Mild to | | moderate cardiac enlargement. Mild prominence central pulmonary vascular markings. Mild | | blunting of the left costophrenic angle on the lateral film. Slight asymmetric lucent | | area at the left costophrenic angle on the frontal film, of uncertain significance. | | IMPRESSION: 1. Cardiomegaly and mild central pulmonary venous congestion.2. Suspect | | small left pleural effusion. | |COMPARISON: None. | | | |TECHNIQUE: Two view chest, PA and lateral views | | | |FINDINGS: Mild to moderate cardiac enlargement. Mild prominence central pulmonary vascular markings. Mild blunting of the left costophrenic angle on the lateral film. Slight asymmetri c lucent area at the left costophrenic angle on the frontal film, of | |uncertain significance. | | | |IMPRESSION: | |1. Cardiomegaly and mild central pulmonary venous congestion. | |2. Suspect small left pleural effusion. | | | | | + + Urinalysis, Reflex Microscopic and/or Culture (07/17/2018 8:39 PM PDT) + + + + + + | Component | Value | Ref Range | Performed | Pathologist | | | | | At | Signature | + + + + + + | Color | YELLOW | | EXTERNAL | | | | | | LAB | | + + + + + + | Clarity, | HAZY | | EXTERNAL | | | Urine | | | LAB | | + + + + + + | Specific | 1.006 | 1.002 - 1.030 | EXTERNAL | | | [place], | | | LAB | | | [...] + + + + | Urobilinoge | 2.0 (H) | mg/dL | EXTERNAL | | | n, Urine | | | LAB | | + + + + + + | Protein, | NEGATIVE | mg/dL | EXTERNAL | | | Urine | | | LAB | | + + + + + + | pH, Urine | 5.0 | 5.0 - 8.0 | EXTERNAL | [...] + + + | WBC, UA | 3-5 | 0 - 5 /hpf | EXTERNAL | | | | | | LAB | | + + + + + + | RBC, UA | 6-10 | 0 - 2 /hpf | EXTERNAL | | | | | | LAB | | + + + + + + | Bacteria, | 1+ (A) | | EXTERNAL | | | UA | | | LAB | | + + + + + + | Epithelial | 6-10Comment: Testing | /lpf | EXTERNAL | | | Cells | performed at [facility];[address] | | LAB | | | | [address];[place] | | | | | | [address] | | | | + + + + + + + + | Specimen | + + | | + + + +---------+ + + | Performing | Address | City/State/Zipcode | Phone Number | | Organization | | | | + +---------+ + + | EXTERNAL LAB | | | | + +---------+ + + US Abdomen Limited (07/17/2018 7:35 PM PDT) + + | Specimen | + + | | + + + + + | Impressions | Performed At | + + + | 1. No gallstones or findings of acute cholecystitis or biliary | | | dilatation. 2. Echogenic liver suggesting steatosis. 3. A right | | | pleural effusion is seen. RADIA Electronically signed by Jonn | | | MD Katheryn on Jul 17 2018 8:07PM Referring Provider Line: | | | [phone] ID: [id number] | | + + + + + + | Narrative | Performed At | + + + | EXAM: ABDOMEN ULTRASOUND LIMITED, [facility] EXAM DATE: 07/17/2018 | | | 07:36 PM. CLINICAL HISTORY: Abdominal swelling. COMPARISON: | | | None. TECHNIQUE: Real-time scanning was performed with static | | | images obtained. FINDINGS: Liver: The liver parenchyma appears | | | echogenic. No focal liver lesion. The main portal vein measures 1.7 cm | | | in diameter. 19.1 cm. Main portal vein flow: Hepatopetal. | | | Gallbladder: Normal. No stones, wall thickening, or sonographic | | | [place]'s sign. Biliary System: CBD measures 2.4 mm. No | | | intrahepatic or extrahepatic ductal dilatation. Other: There is a | | | right pleural effusion incidentally seen | | + + + + + | Procedure Note | + + | Anton, Rad Conversion - 06/03/2019 11:35 AM PDT EXAM:ABDOMEN ULTRASOUND LIMITED, [facility]Q | | EXAM DATE: 07/17/2018 07:36 PM. CLINICAL HISTORY: Abdominal swelling. COMPARISON: None. | | TECHNIQUE: Real-time scanning was performed with static images obtained. FINDINGS:Liver: | | The liver parenchyma appears echogenic. No focal liver lesion. The main portal vein | | measures 1.7 cm in diameter. 19.1 cm. Main portal vein flow: Hepatopetal. Gallbladder: | | Normal. No stones, wall thickening, or sonographic [place]'s sign. Biliary System: CBD | | measures 2.4 mm. No intrahepatic or extrahepatic ductal dilatation. Other: There is a | | right pleural effusion incidentally seen IMPRESSION: 1. No gallstones or findings of | | acute cholecystitis or biliary dilatation.2. Echogenic liver suggesting steatosis.3. A | | right pleural effusion is seen. RADIA Electronically signed by Jonn Campa MD on | | Jul 17 2018 8:07PM Referring Provider Line: [phone] ID: [id number] | |FINDINGS: | |Liver: The liver parenchyma appears echogenic. No focal liver lesion. The main portal vein measures 1.7 cm in diameter. 19.1 cm. Main portal vein flow: Hepatopetal. | | | |Gallbladder: Normal. No stones, wall thickening, or sonographic [place]'s sign. | | | |Biliary System: CBD measures 2.4 mm. No intrahepatic or extrahepatic ductal dilatation. | | | |Other: There is a right pleural effusion incidentally seen | | | |IMPRESSION: | | | |1. No gallstones or findings of acute cholecystitis or biliary dilatation. | |2. Echogenic liver suggesting steatosis. | |3. A right pleural effusion is seen. | | | |RADIA | | | |Electronically signed by Jonn Campa MD on Jul 17 2018 8:07PM Referring Provider L ine: [phone] ID: [id number] | + + Type and Screen (07/17/2018 5:13 PM PDT) + + + + + + | Component | Value | Ref Range | Performed | Pathologist | | | | | At | Signature | + + + + + + | ABO Rh | A POSITIVE | | EXTERNAL | | | | | | LAB | | + + + + + + | Antibody | NEGATIVE | | EXTERNAL | | | Screen | | | LAB | | + + + + + + | BB BAND | [id number] | | EXTERNAL | | | | | | LAB | | + + + + + + | UNIT NUMBER | [id number] | | EXTERNAL | | | | | | LAB | | + + + + + + | Product | LEUKODEPLETED PC | | EXTERNAL | | | Code | | | LAB | | + + + + + + | Unit | 00 | | EXTERNAL | | | Division | | | LAB | | + + + + + + | Unit Status | ISSUED,FINAL | | EXTERNAL | | | | | | LAB | | + + + + + + | Transfusion | OK TO TRANSFUSE | | EXTERNAL | | | Status | | | LAB | | + + + + + + | CROSSMATCH | COMPATIBLE | | EXTERNAL | | | RESULT | | | LAB | | + + + + + + | UNIT NUMBER | [id number] | | EXTERNAL | | | | | | LAB | | + + + + + + | Product | LEUKODEPLETED PC | | EXTERNAL | | | Code | | | LAB | | + + + + + + | Unit | 00 | | EXTERNAL | | | Division | | | LAB | | + + + + + + | Unit Status | ISSUED,FINAL | | EXTERNAL | | | | | | LAB | | + + + + + + | Transfusion | OK TO TRANSFUSE | | EXTERNAL | | | Status | | | LAB | | + + + + + + | CROSSMATCH | COMPATIBLE | | EXTERNAL | | | RESULT | | | LAB | | + + + + + + | UNIT NUMBER | [id number] | | EXTERNAL | | | | | | LAB | | + + + + + + | Product | LEUKODEPLETED PC | | EXTERNAL | | | Code | | | LAB | | + + + + + + | Unit | 00 | | EXTERNAL | | | Division | | | LAB | | + + + + + + | Unit Status | ISSUED,FINAL | | EXTERNAL | | | | | | LAB | | + + + + + + | Transfusion | OK TO TRANSFUSE | | EXTERNAL | | | Status | | | LAB | | + + + + + + | CROSSMATCH | COMPATIBLE | | EXTERNAL | | | RESULT | | | LAB | | + + + + + + | UNIT NUMBER | [id number] | | EXTERNAL | | | | | | LAB | | + + + + + + | Product | LEUKODEPLETED PC | | EXTERNAL | | | Code | | | LAB | | + + + + + + | Unit | 00 | | EXTERNAL | | | Division | | | LAB | | + + + + + + | Unit Status | ISSUED,FINAL | | EXTERNAL | | | | | | LAB | | + + + + + + | Transfusion | OK TO TRANSFUSE | | EXTERNAL | | | Status | | | LAB | | + + + + + + | CROSSMATCH | COMPATIBLETesting | | EXTERNAL | | | RESULT | performed at [facility];[address] | | LAB | | | | [address];[place] | | | | | | [address] | | | | + + + + + + | UNIT NUMBER | [id number] | | EXTERNAL | | | | | | LAB | | + + + + + + | Product | LEUKODEPLETED PC | | EXTERNAL | | | Code | | | LAB | | + + + + + + | Unit | 00 | | EXTERNAL | | | Division | | | LAB | | + + + + + + | Unit Status | ISSUED,FINAL | | EXTERNAL | | | | | | LAB | | + + + + + + | Transfusion | OK TO TRANSFUSE | | EXTERNAL | | | Status | | | LAB | | + + + + + + | CROSSMATCH | COMPATIBLE | | EXTERNAL | | | RESULT | | | LAB | | + + + + + + + + | Specimen | + + | Blood specimen | | (specimen) | + + + +---------+ + + | Performing | Address | City/State/Zipcode | Phone Number | | Organization | | | | + +---------+ + + | EXTERNAL LAB | | | | + +---------+ + + Iron and Iron Binding Capacity (07/17/2018 4:27 PM PDT) + + + + + + | Component | Value | Ref Range | Performed | Pathologist | | | | | At | Signature | + + + + + + | Iron | 135 | 45 - 190 ug/dL | EXTERNAL | | | | | | LAB | | + + + + + + | TIBC | 177 (L) | 250 - 450 ug/dL | EXTERNAL | | | | | | LAB | | + + + + + + | UIBC | 42 | ug/dL | EXTERNAL | | | | | | LAB | | + + + + + + | Iron | 76 (H)Comment: Testing | 20 - 50 % | EXTERNAL | | | Saturation | performed at [facility], [address] | | LAB | | | | [address], | | | | | | [place] [address] | | | | + + + + + + + + | Specimen | + + | | + + + +---------+ + + | Performing | Address | City/State/Zipcode | Phone Number | | Organization | | | | + +---------+ + + | EXTERNAL LAB | | | | + +---------+ + + PTT (07/17/2018 4:27 PM PDT) + + + + + + | Component | Value | Ref Range | Performed | Pathologist | | | | | At | Signature | + + + + + + | aPTT, | 42 (H)Comment: Testing | 23 - 32 seconds | EXTERNAL | | | Patient | performed at [facility];[address] | | LAB | | | | [address];[place] | | | | | | [address] | | | | + + + + + + + + | Specimen | + + | Blood specimen | | (specimen) | + + + +---------+ + + | Performing | Address | City/State/Zipcode | Phone Number | | Organization | | | | + +---------+ + + | EXTERNAL LAB | | | | + +---------+ + + Protime INR (07/17/2018 4:27 PM PDT) + + + + + + | Component | Value | Ref Range | Performed | Pathologist | | | | | At | Signature | + + + + + + | INR | 1.8Comment: REFERENCE | | EXTERNAL | | | | RANGE:0.9 - 1.2 | | LAB | | | | NON-ANTICOAGULATED2.0 | | | | | | - 3.0 ALL OTHER | | | | | | THERAPEUTIC | | | | | | INDICATIONS2.5 - 3.5 | | | | | | MECHANICAL HEART VALVES, | | | | | | RECURRENT OR SYSTEMIC | | | | | | EMBOLISMTesting | | | | | | performed at [facility];[address] | | | | | | [address] [facility];[place], [place] | | | | | | [address] | | | | + + + [...] + +---------+ + + External Lab: CBC (07/17/2018 4:27 PM PDT) + + + + + + | Component | Value | Ref Range | Performed | Pathologist | | | | | At | Signature | + + + + + + | WBC | 6.17 | 3.80 - 11.00 | EXTERNAL | | | | | K/uL | LAB | | + + + + + + | Non- | 1.28 (L) | 4.20 - 5.70 | EXTERNAL | | | Red Blood | | M/uL | LAB | | | Cells | | | | | | Counted | | | | | + + + + + + | Hemoglobin | 5.4 (LL)Comment: CALLED | 13.2 - 17.0 | EXTERNAL | | | | PHYSICIANREAD BACK | g/dL | LAB | | | | RESULTS VERIFIEDDR | | | | | | [facility] IN ED AT [address] [facility] | | | | | | | | | | | | | | | | + + + + + + | Hematocrit, | 14.6 (LL)Comment: CALLED | 39.0 - 50.0 % | EXTERNAL | | | POC | PHYSICIANREAD BACK | | LAB | | | | RESULTS VERIFIEDDR | | | | | | [facility] IN ED AT [address] [facility] | | | | | | | | | | | | | | | | + + + + + + | MCV | 114.0 (H) | 80.0 - 100.0 fl | EXTERNAL | | | | | | LAB | | + + + + + + | MCH | 41.9 (H) | 27.0 - 34.0 pg | EXTERNAL | | | | | | LAB | | + + + + + + | MCHC | 36.7 (H) | 32.0 - 35.5 | EXTERNAL | | | | | g/dL | LAB | | + + + + + + | RDW-CV | 54.3 (H) | 37 - 53 fl | EXTERNAL | | | | | | LAB | | + + + + + + | Platelet | 93 (L) | 150 - 400 K/uL | EXTERNAL | | | Count | | | LAB | | | Plasma | | | | | + + + + + + | MPV | 7.9 | fl | EXTERNAL | | | | | | LAB | | + + + + + + | Differentia | AUTOMATED | | EXTERNAL | | | l Type | | | LAB | | + + + + + + | % Segmented | 64.56 | % | EXTERNAL | | | | | | LAB | | | Neutrophils | | | | | + + + + + + | % | 19.98 | % | EXTERNAL | | | Lymphocytes | | | LAB | | + + + + + + | % Monocytes | 9.40 | % | EXTERNAL | | | | | | LAB | | + + + + + + | % | 5.67 | % | EXTERNAL | | | Eosinophils | | | LAB | | + + + + + + | % Basophils | 0.39 | % | EXTERNAL | | | | | | LAB | | + + + + + + | Absolute | 4.11 | 1.90 - 7.40 | EXTERNAL | | | Segmented | | K/uL | LAB | | | Neutrophils | | | | | + + + + + + | Absolute | 1.27 | 1.00 - 3.90 | EXTERNAL | | | Lymphocytes | | K/uL | LAB | | + + + + + + | Absolute | 0.60 | 0.00 - 0.80 | EXTERNAL | | | Monocytes | | K/uL | LAB | | + + + + + + | Absolute | 0.36 | 0.00 - 0.50 | EXTERNAL | | | Eosinophils | | K/uL | LAB | | + + + + + + | Absolute | 0.03 | 0.00 - 0.10 | EXTERNAL | | | Basophils | | K/uL | LAB | | + + + + + + | RBC | 1+ | | EXTERNAL | | | Morphology | Comment: | | LAB | | | | ANISO | | | | | | 1+ | | | | | | POLY | | | | | | 2+ | | | | | | MACRO | | | | | | 2+ | | | | | | ACANTHO | | | | | | STIPPLING | | | | | | NORMAL PLT MORPH | | | | | | | | | | + + + + + + | Platelet | DECREASED | | EXTERNAL | | | Estimate | | | LAB | | + + + + + + | Differentia | SLIDE SCANNED, AGREES | | EXTERNAL | | | l Comments | WITH AUTOMATED | | LAB | | | | RESULTS.Comment: Testing | | | | | | performed at [facility] [place];[address] | [address];[place], [place] | | | | | | [address] | | | | + + + + + + + + | Specimen | + + | Blood specimen | | (specimen) | + + + +---------+ + + | Performing | Address | City/State/Zipcode | Phone Number | | Organization | | | | + +---------+ + + | EXTERNAL LAB | | | | + +---------+ + + Lipase (07/17/2018 4:27 PM PDT) + + + + + + | Component | Value | Ref Range | Performed | Pathologist | | | | | At | Signature | + + + + + + | Lipase | 395 (H)Comment: Testing | 73 - 393 U/L | EXTERNAL | | | | performed at [facility] [place];[address] | | LAB | | | | [address];[place] | | | | | | [address] | | | | + + + + + + + + | Specimen | + + | Blood specimen | | (specimen) | + + + +---------+ + + | Performing | Address | City/State/Zipcode | Phone Number | | Organization | | | | + +---------+ + + | EXTERNAL LAB | | | | + +---------+ + + Folate (07/17/2018 4:27 PM PDT) + + + + + + | Component | Value | Ref Range | Performed | Pathologist | | | | | At | Signature | + + + + + + | Folate | 9.3Comment: Testing | ng/mL | EXTERNAL | | | | performed at [facility], [address] | LAB | | | | [address], | | | | | | [place] [address] | | | | + + + + + + + + | Specimen | + + | Blood specimen | | (specimen) | + + + +---------+ + + | Performing | Address | City/State/Zipcode | Phone Number | | Organization | | | | + +---------+ + + | EXTERNAL LAB | | | | + +---------+ + + Ferritin (07/17/2018 4:27 PM PDT) + + + + + + | Component | Value | Ref Range | Performed | Pathologist | | | | | At | Signature | + + + + + + | Ferritin, | 1,016 (H)Comment: | 11 - 450 ng/mL | EXTERNAL | | | External | Testing performed at | | LAB | | | | [facility], [address] | | | | | | [place] | | | | | | [address] | | | | + + + + + + + + | Specimen | + + | Blood specimen | | (specimen) | + + + +---------+ + + | Performing | Address | City/State/Zipcode | Phone Number | | Organization | | | | + +---------+ + + | EXTERNAL LAB | | | | + +---------+ + + Vitamin B-12 (07/17/2018 4:27 PM PDT) + + + + + + | Component | Value | Ref Range | Performed | Pathologist | | | | | At | Signature | + + + + + + | VITAMIN | 1,791 (H)Comment: | 254 - 1,320 | EXTERNAL | | | B-12 | Testing performed at | pg/mL | LAB | | | | [facility], [address] | | | | | | [place] | | | | | | [address] | | | | + + + + + + + + | Specimen | + + | Blood specimen | | (specimen) | + + + +---------+ + + | Performing | Address | City/State/Zipcode | Phone Number | | Organization | | | | + +---------+ + + | EXTERNAL LAB | | | | + +---------+ + + Amylase (07/17/2018 4:27 PM PDT) + + + + + + | Component | Value | Ref Range | Performed | Pathologist | | | | | At | Signature | + + + + + + | Amylase | 50Comment: Testing | 25 - 115 U/L | EXTERNAL | | | | performed at [facility];88 | | LAB | | | | [place] | | | | | | [address] | | | | + + + + + + + + | Specimen | + + | Blood specimen | | (specimen) | + + + +---------+ + + | Performing | Address | City/State/Zipcode | Phone Number | | Organization | | | | + +---------+ + + | EXTERNAL LAB | | | | + +---------+ + + Ammonia (07/17/2018 4:27 PM PDT) + + + + + + | Component | Value | Ref Range | Performed | Pathologist | | | | | At | Signature | + + + + + + | Ammonia | <10Comment: Testing | umol/L | EXTERNAL | | | | performed at [facility];[address] | | LAB | | | | [place] | | | | | | [address] | | | | + + + + + + + + | Specimen | + + | Blood specimen | | (specimen) | + + + +---------+ + + | Performing | Address | City/State/Zipcode | Phone Number | | Organization | | | | + +---------+ + + | EXTERNAL LAB | | | | + +---------+ + + Comprehensive Metabolic Panel (07/17/2018 4:27 PM PDT) + + + + + + | Component | Value | Ref Range | Performed | Pathologist | | | | | At | Signature | + + + + + + | Na | 133 (L) | 135 - 145 | EXTERNAL | | | | | mmol/L | LAB | | + + + + + + | K | 3.5 | 3.5 - 4.9 | EXTERNAL | | | | | mmol/L | LAB | | + + + + + + | Cl | 98 (L) | 99 - 109 mmol/L | EXTERNAL | | | | | | LAB | | + + + + + + | CO2 | 22 (L) | 23 - 32 mmol/L | EXTERNAL | | | | | | LAB | | + + + + + + | Anion Gap | 16 | 5 - 20 mmol/L | EXTERNAL | | | | | | LAB | | + + + + + + | Glucose, | 154 (H) | 65 - 99 mg/dL | EXTERNAL | | | Fasting | | | LAB | | + + + + + + | BUN | 34 (H) | 8 - 25 mg/dL | EXTERNAL | | | | | | LAB | | + + + + + + | Creatinine | 2.1 (H) | 0.70 - 1.30 | EXTERNAL | | | | | mg/dL | LAB | | + + + + + + | BUN/Creatin | 16 | | EXTERNAL | | | ine Ratio | | | LAB | | + + + + + + | Calcium | 7.8 (L) | 8.5 - 10.5 | EXTERNAL | | | | | mg/dL | LAB | | + + + + + + | Protein, | 8.1 | 6.3 - 8.2 g/dL | EXTERNAL | | | Total | | | LAB | | + + + + + + | Albumin | 2.5 (L) | 3.6 - 5.0 g/dL | EXTERNAL | | | | | | LAB | | + + + + + + | Globulin | 5.6 (H) | 1.3 - 4.9 g/dL | EXTERNAL | | | | | | LAB | | + + + + + + | A/G Ratio | 0.4 (L) | 1.0 - 2.4 | EXTERNAL | | | | | | LAB | | + + + + + + | Bilirubin | 10.6 (H) | 0.1 - 1.5 mg/dL | EXTERNAL | | | Total | | | LAB | | + + + + + + | ALP, | 124 (H) | 35 - 115 U/L | EXTERNAL | | | External | | | LAB | | + + + + + + | AST | 73 (H) | 10 - 45 U/L | EXTERNAL | | | | | | LAB | | + + + + + + | ALT | 21 | 10 - 65 U/L | EXTERNAL | | | | | | LAB | | + + + + + + | Estimated | 33 (L)Comment: GFR <60: | mL/min/1.73m2 | EXTERNAL | | | GFR | CHRONIC KIDNEY DISEASE, | | LAB | | | | IF FOUND OVER A 3 MONTH | | | | | | PERIOD.GFR <15: KIDNEY | | | | | | FAILURE.FOR | | | | | | AMERICANS, MULTIPLY THE | | | | | | CALCULATED GFR BY | | | | | | 1.210.This eGFR is | | | | | | calculated using the | | | | | | [facility] traceable | | | | | | equation.Testing | | | | | | performed at [facility] | | | | | | [facility];[place], [place] | | | | | | [address] | | | | + + + [...] + | Diagnosis | + + | Anemia, unspecified type | + + | ETOH abuse Alcohol abuse, unspecified | + + | Hyperbilirubinemia Disorders of bilirubin excretion | + + | CULLEN (acute kidney injury) (HCC) Acute kidney failure, unspecified | + + | Thrombocytopenia (HCC) Thrombocytopenia, unspecified | + + | Alcoholic cirrhosis of liver with ascites (HCC) Alcoholic cirrhosis of liver | + + | Abnormal blood coagulation profile Abnormal coagulation profile | + + documented in this encounter
--- OUTSIDE RECORDS SUMMARY | ~2020-07-29 | XMS | Encounter Summary ---
Demographics + + + | Address | [address] | | | [place] [address] | + + + | Home Phone [...] [place] | | | | | [address] | | + + + + + Care Team Providers + +------+ + | Care Openstack Cloud Consulting Architect Name | Role | Phone | + +------+ + | Sharon David MD | PCP | | + +------+ + Encounter Details +--------+ + + + + | Date | Type | Department | Care Team | Description | +--------+ + + + + | 03/10/ | Pharmacy | [facility] | | | | 2020 | Visit | [address] | | | | | | [address] | | | | | | [place] [address] | | | | | | [phone] | | | +--------+ + + + [...] Rd | | | | | | [place], [place] | | | | | | [address] | | | | | | [phone] | | | | | | | | +--------+ + + + + | 09/27/ | Telephone-S | Liver Transplant | Vimal Crowe MD | | | 2019 | cheduled | | [address] | | | | | | [address], | | | | | | [place] [address] | | | | | | [phone] | | | | | | | [...] Rd | | | | | | [place] | | | | | | [address] | | | | | | [phone] | | | | | | | | +--------+ + + + + documented as of this encounter Visit Diagnoses Not on filedocumented in this encounter"
--- OUTSIDE RECORDS SUMMARY | ~2020-07-29 | XMS | Encounter Summary ---
Demographics + + + | Address | [address] | | | [place] [address] | + + + | Home Phone [...] [place] | | | | | [address] | | + + + + + Care Team Providers + +------+ + | Care Machine Biller Name | Role | Phone | + +------+ + | Sharon David MD | PCP | | + +------+ + Encounter Details +--------+ + + + + | Date | Type | Department | Care Team | Description | +--------+ + + + + | 08/18/ | Documentati | Liver Transplant | Adam, | | | 2019 | on | at [facility] [address] | | | | [address] | [address] [facility] [place] | | | | | Physician's | Rd [place], [place] | | | | | [place], 2nd floor | [address] | | | | | [place], [place] | [phone] | | | | | [address] | | | | | | [phone] | | | +--------+ + + + [...] Rd | | | | | | [place], [place] | | | | | | [address] | | | | | | [phone] | | | | | | | | +--------+ + + + + | 09/27/ | Telephone-S | Liver Transplant | Vimal Crowe MD | | | 2019 | cheduled | | [address] | | | | | | [address], | | | | | | [place] [address] | | | | | | [phone] | | | | | | | | +--------+ + + + + | 10/03/ | Appointment | Cardiology | | | | 2019 | | | | | +--------+ + + + + | 10/03/ | Office | Cardiology | Cyril Samuel | | | 2019 | Visit | | MD Patricia [address] | | | | | | [address] | | | | | | [place], [place] | | | | | | [address] | | | | | | [phone] | | | | | | | | +--------+ + + + + documented as of this encounter Visit Diagnoses Not on filedocumented in this encounter"
--- OUTSIDE RECORDS SUMMARY | ~2020-07-29 | XMS | Encounter Summary ---
Demographics + + + | Address | [address] | | | [place] [address] | + + + | Home Phone | | + + + | Preferred Language | Unknown | + + + | Marital Status | Single | + + + | Congregation Affiliation | NON | + + + [...] [place] | | | | | [address] | | + + + + + Care Team Providers + +------+ + | Care Radio Electrician Name | Role | Phone | + +------+ + | Sharon David MD | PCP | | + +------+ + Reason for Visit + +--------+ + | Reason | Onset | Comments | | | Date | | + +--------+ + | MELD Score | 04/22/ | | | | 2019 | | + +--------+ + Encounter Details +--------+ + + + + | Date | Type | Department | Care Team | Description | +--------+ + + + + | 04/22/ | Abstract | Clinical | Laurita Pinon | MELD Score | | 2019 | | Transplant Services | MD Jayce [address] | | | | | [address] | [place], [place] | | | | | [place], | [address] | | | | | [place] [address] | [phone] | | | | | [phone] | | | +--------+ + + + [...] Rd | | | | | | [place], [place] | | | | | | [address] | | | | | | [phone] | | | | | | | | +--------+ + + + + | 09/27/ | Telephone-S | Liver Transplant | Vimal Crowe MD | | | 2019 | cheduled | | [address] | | | | | | [address], | | | | | | [place] [address] | | | | | | [phone] | | | | | | | [...] Rd | | | | | | [place], [place] | | | | | | [address] | | | | | | [phone] | | | | | | | | +--------+ + + + + documented as of this encounter Procedures + +--------+ + + + | Procedure Name | Priori | Date/Time | Associated Diagnosis | Comments | | | ty | | | | + +--------+ + + + | LAB OTHER | Routin | 04/22/2019 | | Results for this | | | e | | | procedure are in the | | | | | | results section. | + +--------+ + + + documented in this encounter Results LAB OTHER (04/22/2019) + + + + + + | Component | Value | Ref Range | Performed | Pathologist | | | | | At | Signature | + + + + + + | MELD | 34Comment: Calculated | | CALCULATED | | | | Manually using OPTN MELD | | MANUALLY | | | | Calculator | | | | + + + + + + + + | Specimen | + + | | + + + + + + + | Performing | Address | City/State/Zipcode | Phone Number | | Organization | | | | + + + + + | CALCULATED | [address] [facility] [facility] | [place], [place] | | | MANUALLY | | | | + + + + + documented in this encounter Visit Diagnoses Not on filedocumented in this encounter"
--- OUTSIDE RECORDS SUMMARY | ~2020-07-29 | XMS | Encounter Summary ---
Demographics + + + | Address | [address] | | | [place] [address] | + + + | Home Phone [...] [place] | | | | | [address] | | + + + + + Care Team Providers + +------+ + | Care Packager Or Packer And Weigher Name | Role | Phone | + +------+ + | Ignacio Caldwell MD | PCP | | + +------+ + Encounter Details +--------+ + + + + | Date | Type | Department | Care Team | Description | +--------+ + + + + | 05/16/ | Office | [facility] | Note, [...] as of this encounter Progress Notes Interface, Clay Pigeon Loader In - 10/04/2006 3:12 AM PSTINIC DATE: 05/15/1999 NEUROSURGERY CLINIC SUBJECTIVE: The patient is now eight weeks out from his two-level fracture. He returned to work approximately one month ago, which is reasonably sedentary work and does not involve lifting or twisting. He has really minimal discomfort, but he is wearing his brace at all times, other than when he is in bed. He continues with an external fixator in his right-lower extremity for the fracture there and has minimal touchdown, requiring him to use crutches for ambulation. He will see Dr. Talbert tomorrow in follow-up for this. OBJECTIVE: His lower extremity examination, as limited with external fixator on the right-lower extremity, is unremarkable. His back looks quite good and there is a minimal visible kyphotic deformity accompanied by a very slight right focal traumatic scoliosis on examination of his spine. He is not tender. Examination of radiographs taken today show no change in his angles, in the sagittal plane, making a 22-degree kyphosis including both levels. His previous right focal scoliotic deformity in the coronal plane, which measured out to approximately 6 degrees previously, is about half that and less apparent on the films really than it appeared when I examined him. ASSESSMENT/PLAN: Overall, I think he is doing quite well. I will liberalize his use off the brace to just when he is out of the house. I will see him back in four weeks with repeat images out of the brace, whereupon I will work on mobilizing him. Duy Guillory M.D., F.C.C.M. Research Center Partner, Department of Neurological Surgery Director of Neurotrauma and Critical Care ARBEN/ganesh Lord, Clay Pigeon Loader In - 10/04/2006 3:12 AM PSTCLINIC DATE: 05/16/1999 SUBJECTIVE: Mr. Duran's wound over his tibia looks quite good and is almost completely filled in now. X-rays show early callus formation. He is not having any pain. He has been bearing some weight, even though he was advised not to. He states he can do this without great problems. PLAN: I think at this point we can continue with the external fixture, as his pins are quite clean and look good at this point. I would get him bearing more weight on this now. This will stimulate healing. He will be seen again in six weeks and re-X-rayed. I suspect at that point we can remove the external fixture, and this can be done in the clinic. He does not need to continue to see Dr. Bentley but will do so if there is a change in the status of his leg. Rod Velasquez M.D. Professor and Test Desk Supervisor, Department of Orthopaedics [id number] cc: ROD BENTLEY MD [address] [place] [place] [id number] signed by Interface, Clay Pigeon Loader In at 10/04/2006 3:12 AM PSTdocumented in this encounter Plan of [...] Rd | | | | | | [place], [place] | | | | | | [address] | | | | | | [phone] | | | | | | | | +--------+ + + + + | 09/27/ | Telephone-S | Liver Transplant | Vimal Crowe MD | | | 2019 | [place] | | [address] | | | | | | [address], | | | | | | [place] [address] | | | | | | [phone] | | | | | | | | +--------+ + + + + | 10/03/ | Appointment | Cardiology | | | | 2019 | | | | | +--------+ + + + + | 10/03/ | Office | Cardiology | Cyril Samuel | | | 2019 | Visit | | MD Patricia [address] [facility] | | | | | | [address] | | | | | | [place] | | | | | | [address] | | | | | | [phone] | | | | | | | | +--------+ + + + + documented as of this encounter Visit Diagnoses Not on filedocumented in this encounter"
--- OUTSIDE RECORDS SUMMARY | ~2020-07-29 | XMS | Encounter Summary ---
Demographics + + + | Address | [address] | | | [place] [address] | + + + | Home Phone | | + + + | Preferred Language | Unknown | + + + | Marital Status | Single | + + + | Holiness Affiliation | NON | + + + [...] [place] | | | | | [address] | | + + + + + Care Team Providers + +------+ + | Care Child Development Associate Teacher Name | Role | Phone | [...] + + + | Closed | | Non [facility] | Diagnoses | [place], | Non-[facility] | | | | Department | Iron | Tyson Buchanan MD | Epic Dept | | | | | overload | [address] | | | | | | Procedures | [address] | | | | | | CONSULT TO | [address] | | | | | | NON - [facility] | [place], [place] | | | | | | [place] | [address] | | | | | | NEW PATIENT | Phone: | | | | | | LEVEL V | [phone] | | | | | | | Fax: | | | | | | | [phone] | | +--------+--------+ + + + + Reason for Visit + +--------+ + | Reason | Onset | Comments | | | Date | | + +--------+ + | Scheduling | 05/01/ | | | | 2019 | | + +--------+ + Encounter Details +--------+ + + + + | Date | Type | Department | Care Team | Description | +--------+ + + + + | 05/01/ | Telephone | [facility] | Tyson Bellamy, | Scheduling | | 2018 | | Clinics at S | [address] | | | | | [place] [address] [place], | | | | | [address] [facility] | [place] [address] | | | | | Health [facility], | [phone] | | | | | [address] | | | | | | [place], [place] | | | | | | [address] | | | | | | [phone] | | | +--------+ + + + [...] Telephone Encounter - Anshul Taylor RN - 05/04/2019 2:24 PM PDT----- Message from Porsche Perdomo RN sent at 05/04/2019 11:25 AM PDT ----- Thank you so much! ----- Message ----- From: Anshul Taylor RN Sent: 05/04/2019 11:20 AM To: Vimal Crowe MD, Porsche Perdomo, RN, # Referred today to [facility] Hematology. Thanks all! ----- Message ----- From: Tyson Bellamy MD Sent: 05/01/2019 10:33 PM To: Vimal Crowe MD, Porsche Perdomo RN, # My staff reached out to him but it sounds like he is unable to travel here on his own and h as his relatives fly in to take him to [place]. He lives about 4 hours away. His cardiac MRI has notable iron deposition. He is going to either need a liver transplant [place] (We can phlebotomize him after) or start chelation. The chelation schedule is pretty vigorous. I don't think he going to be able to feasibly tr shawn here routinely for the needed infusions. I am reaching our to my pharmacy for some input here, but I think feasibly we are going to have to refer him to a local hematology group ----- Message ----- From: Porsche Perdomo RN Sent: 05/01/2019 1:39 PM To: Vimal Crowe MD, MD [address] I have another patient I need your help with. Mr. Duran was reviewed in our liver transplan t committee review yesterday and was deferred pending completion of recommendations. The tea m would like him to follow up with you for iron overload and possible need for IV chelation therapy, cardiac MRI on 04/24/19 showed iron overload. You saw him as an inpatient on 04/23/19. Thank you so much for your help! elephone Encounter - Claudia Cotter - 05/04/2019 11:46 AM PDTTeam Coordinator Documentation: All requested information faxed to [facility] Hem/Onc F:[phone]. elephone Encounter - Anshul Taylor RN - 11:02 AM PDT--> Spoke with Dr. Bellamy: Reviewed and requesting referral to [facility] Jorge L contreras - Hematology and Oncology. --> RN action: Referral placed. --> RED CAPPER MACHINE OPERATOR: Please disregard Hematology scheduling requests. To be referred locally. --> RED TC: Please forward following to [facility] ([place], [place]): 1) 05/04/19 referral 2) 04/22/19 MRI abdomen report 3) 04/24/19 MRI cardiac report 4) 04/21/19 ED consultation note (Dr. Bellamy) elephone Encounter - Madhuri Buckner RN - 05/01/2019 4:45 PM PDTCalled patient to discuss reason for appointment with Dr. Bellamy for chelation due to numerous transfusions causing iron overload. Explaine d how this can lead to end organ damage specifically the heart and liver but other organs al so. Discussed how these levels need to be lowered in preparation for his liver transplant. Nixon eduardo reports he lives out [place] and his mother and sister accompany him to his appointme [facility]. States they fly in from [place] to accompany him and this leads to a lot of expense with e ach appointment. States it would be better if several appointments could be scheduled on the same day and only have to make one trip. Informed him we would try coordinating his visit w ith Dr. Bellamy, Dr. Crowe and the chelation infusion for the same day. He verbalized unders tanding and agreement with this plan. Informed PAS (red materials scheduler). elephone Encounter - Garrison Serra - 9 4:29 PM PDTScheduling this patient, per Nadiya DONOHUE: 1) Schedule followup with Dr. Bellamy some time earlier in the morning. 2) Email Porsche Perdomo to see when Dr. Crowe can schedule his followup that day. 3) schedule infusion for the same day. The patient's family flies in from [place] to accompany this patient for appointments. These appointments must all be scheduled for the same day to accomodate. Documenting as FYI elephon e Encounter - Garrison Serra - 05/01/2019 2:43 PM PDTPAS calls patient, attempts to schedul e per MD request. Patient declines to schedule, states he doesn't know what appointment thi s is and was not sent an email about it. Patient does not want to come in unless he can get more than one appointment out of the way with one trip because he lives 4 hours away. Steph sethi wants to know more details about this appointment before he schedules it, asks for a julia l back later from [facility]. Routing to [facility] See request from MD gonzalez documented in this encount er Plan of Treatment +--------+ + + + + | Date | Type | Specialty | Care Team | Description | +--------+ + + + + | 08/08/ | Telephone-S | Nephrology | Angélica Chao, | | | 2019 | [place] | | [address] | | | | | | [address] | | | | | | [place], [place] | | | | | | [address] | | | | | | [phone] | | | | | | | | +--------+ + + + + | 09/27/ | Telephone-S | Liver Transplant | Vimal Crowe MD | | 2019 | [place] | | [address] | | | | | | [address], | | | | | | [place] [address] | | | | | | [phone] | | | | | | | [...] Rd | | | | | | [place], [place] | | | | | | [address] | | | | | | [phone] | | | | | | | | +--------+ + + + + documented as of this encounter Visit Diagnoses + + | Diagnosis | + + | Iron overload - Primary Other disorders of iron metabolism | + + documented in this encounter"
--- OUTSIDE RECORDS SUMMARY | ~2020-07-29 | XMS | Encounter Summary ---
Demographics + + + | Address | [address] | | | [place] [address] | + + + | Home Phone [...] [place] | | | | | [address] | | + + + + + Care Team Providers + +------+ + | Care Banner Painter Name | Role | Phone | + +------+ + | Sharon David MD | PCP | | + +------+ + Encounter Details +--------+ + + + + | Date | Type | Department | Care Team | Description | +--------+ + + + + | 08/14/ | Pharmacy | Outpatient Retail | | | | 2018 | Visit | [facility] | | | | | | [address] | | | | | | [address] [place], [place] | | | | | | [address] | | | | | | [phone] | | | +--------+ + + + [...] Rd | | | | | | [place], [place] | | | | | | [address] | | | | | | [phone] | | | | | | | | +--------+ + + + + | 09/27/ | Telephone-S | Liver Transplant | Vimal Crowe MD | | | 2019 | cheduled | | [address] | | | | | | [facility] [place], | | | | | | [place] [address] | | | | | | [phone] | | | | | | | [...] Rd | | | | | | [place], [place] | | | | | | [address] | | | | | | [phone] | | | | | | | | +--------+ + + + + documented as of this encounter Visit Diagnoses Not on filedocumented in this encounter"
--- OUTSIDE RECORDS SUMMARY | ~2020-07-29 | XMS | Encounter Summary ---
Demographics + + + | Address | [address] | | | [place] [address] | + + + | Home Phone | | + + + | Preferred Language | Unknown | + + + | Marital Status | Single | + + + | Mandaeism Affiliation | NON | + + + [...] [place] | | | | | [address] | | + + + + + Care Team Providers + +------+ + | Care Journalism Intern Name | Role | Phone | + +------+ + | Sharon David MD | PCP | | + +------+ + Encounter Details +--------+ + + + + | Date | Type | Department | Care Team | Description | +--------+ + + + + | 03/11/ | Pharmacy | [facility] | | | | 2020 | Visit | [address] | | | | | | [address] | | | | | | [place] [address] | | | | | | [phone] | | | +--------+ + + + [...] Rd | | | | | | [place], [place] | | | | | | [address] | | | | | | [phone] | | | | | | | | +--------+ + + + + | 09/27/ | Telephone-S | Liver Transplant | Vimal Crowe MD | | | 2019 | cheduled | | [address] | | | | | | [address], | | | | | | [place] [address] | | | | | | [phone] | | | | | | | [...] Rd | | | | | | [place] | | | | | | [address] | | | | | | [phone] | | | | | | | | +--------+ + + + + documented as of this encounter Visit Diagnoses Not on filedocumented in this encounter"
--- OUTSIDE RECORDS SUMMARY | ~2020-07-29 | XMS | Encounter Summary ---
Demographics + + + | Address | [address] | | | [place] [address] | + + + | Home Phone [...] [place] | | | | | [address] | | + + + + + Care Team Providers + +------+ + | Care Internal Audit Director Name | Role | Phone | + +------+ + | Sharon David MD | PCP | | + +------+ + Encounter Details +--------+ + + + + | Date | Type | Department | Care Team | Description | +--------+ + + + + | 05/26/ | Pharmacy | [facility] | | | | 2020 | Visit | [address] | | | | | | [address] | | | | | | [place] [address] | | | | | | [phone] | | | +--------+ + + + [...] Rd | | | | | | [place], [place] | | | | | | [address] | | | | | | [phone] | | | | | | | | +--------+ + + + + | 09/27/ | Telephone-S | Liver Transplant | Vimal Crowe MD | | | 2019 | cheduled | | [address] | | | | | | [address], | | | | | | [place] [address] | | | | | | [phone] | | | | | | | [...] Rd | | | | | | [place] | | | | | | [address] | | | | | | [phone] | | | | | | | | +--------+ + + + + documented as of this encounter Visit Diagnoses Not on filedocumented in this encounter"
--- OUTSIDE RECORDS SUMMARY | ~2020-07-29 | XMS | Encounter Summary ---
Demographics + + + | Address | [address] | | | [place] [address] | + + + | Home Phone [...] [place] | | | | | [address] | | + + + + + Care Team Providers + +------+ + | Care Yam Curer Name | Role | Phone | + +------+ + | Sharon David MD | PCP | | + +------+ + Encounter Details +--------+ + + + + | Date | Type | Department | Care Team | Description | +--------+ + + + + | 09/02/ | Pharmacy | [facility] | | | | 2019 | Visit | [address] | | | | | | [address] | | | | | | [place] [address] | | | | | | [phone] | | | +--------+ + + + [...] Rd | | | | | | [place], [place] | | | | | | [address] | | | | | | [phone] | | | | | | | | +--------+ + + + + | 09/27/ | Telephone-S | Liver Transplant | Vimal Crowe MD | | | 2019 | cheduled | | [address] | | | | | | [address], | | | | | | [place] [address] | | | | | | [phone] | | | | | | | [...] | | | | | | [place] | | | | | | [address] | | | | | | [phone] | | | | | | | | +--------+ + + + + documented as of this encounter Visit Diagnoses Not on filedocumented in this encounter"
--- OUTSIDE RECORDS SUMMARY | ~2020-07-29 | XMS | Encounter Summary ---
Demographics + + + | Address | [address] | | | [place] [address] | + + + | Home Phone | | + + + | Preferred Language | Unknown | + + + | Marital Status | Single | + + + | Zoroastrianism Affiliation | NON | + + + [...] [place] | | | | | [address] | | + + + + + Care Team Providers + +------+ + | Care Forestry Support Specialist Name | Role | Phone | + +------+ + | Sharon David MD | PCP | | + +------+ + Encounter Details +--------+ + + + + | Date | Type | Department | Care Team | Description | +--------+ + + + + | 09/14/ | Pharmacy | [facility] | | | | 2018 | Visit | [facility] | | | | | | [address] | | | | | | [place], [place] | | | | | | [address] | | | | | | [phone] | | | +--------+ + + + [...] Rd | | | | | | [place], [place] | | | | | | [address] | | | | | | [phone] | | | | | | | | +--------+ + + + + | 09/27/ | Telephone-S | Liver Transplant | Vimal Crowe MD | | | 2019 | cheduled | | [address] | | | | | | [facility] [address] [place], | | | | | | [place] [address] | | | | | | [phone] | | | | | | | [...] Rd | | | | | | [place], [place] | | | | | | [address] | | | | | | [phone] | | | | | | | | +--------+ + + + + documented as of this encounter Visit Diagnoses Not on filedocumented in this encounter"
--- OUTSIDE RECORDS SUMMARY | ~2020-07-29 | XMS | Encounter Summary ---
Demographics + + + | Address | [address] | | | [place] [address] | + + + | Home Phone | | + + + | Preferred Language | Unknown | + + + | Marital Status | Single | + + + | Mu-Ism Affiliation | Unknown | + + + | Race | White | + + + | Ethnic Group | Not or | + + + Author + + + | Author | [facility] | | | and [place] | + + + | Organization | [facility] | | | and [place] [...] Team Providers + +------+ + | Care Nutritionists Name | Role | Phone | + +------+ + | Sharon David MD | PCP | | + +------+ + Reason for Visit +--------+ + | Reason | Comments | +--------+ + | Other | end of study | +--------+ + Encounter Details +--------+ + + + + | Date | Type | Department | Care Team | Description | +--------+ + + + + | 04/28/ | Documentati | [facility] | Carmelina Rock Kathy, | Other (end of study) | | 2020 | on | [facility] [place] | Technologist | | | | | [address] | | | | | | [place], [place] | | | | | | [address] | | | | | | [phone] | | | +--------+ + + + [...] documented as of this encounter Progress Notes Carmelina Rock, Technologist - 04/28/2020 11:59 PM PDT Cardiac Event Monitor Date of Event Monitor: 04/28/20 Referring Physician: [place]: Steffen Duran : 1965 Age: 55 y.o. male INDICATIONS: I47.1 Supraventricular tachycardia CONCLUSIONS: 1. 1 month event monitor. Patient was predominantly in sinus rhythm. 2. Average heart rate was 69 bpm, minimum heart rate 52 bpm and maximum heart rate 146 bpm. 3. Arrhythmia was noted as rare premature atrial and ventricular contractions. 4. Multiple episodes of paroxysmal atrial fibrillation longest was 3 hours and 48 minutes. Average heart rate of 120 bpm. documented in this encounter Plan of Treatment +--------+---------+ + + + | Date | Type | Specialty | Care Team | Description | +--------+---------+ + + + | 12/22/ | Office | Cardiology | Archie Shannan | | | 2020 | Visit | | [address] | | | | | | [address] | | | | | | [place] [address] | | | | | | [phone] | | | | | | | | +--------+---------+ + + + documented as of this encounter Visit Diagnoses Not on filedocumented in this encounter
--- OUTSIDE RECORDS SUMMARY | ~2020-07-29 | XMS | Encounter Summary ---
Demographics + + + | Address | [address] | | | [place] [address] | + + + | Home Phone [...] Author + + + | Author | [facility] | + + + | Organization | [facility] | + + + | Address | Unknown | + + + | Phone | Unavailable | + + + Support + + + + + | Name | Relationship | Address | Phone | + + + + + | Doreen Manley | ECON | [address] | | | | | [place] | | | | | [address] | | + + + + + Care Team Providers + +------+ + | Care Rv Technician Name | Role | Phone | + +------+ + | Sharon David MD | PCP | | + +------+ + Encounter Details +--------+ + + + + | Date | Type | Department | Care Team | Description | +--------+ + + + + | 05/23/ | Results | [facility] | Angélica Chao, | | | 2020 | Only | E The | [address] | | | | | [place] | [address] | | | | | [address] | [facility] [place] | | | | | | [address] | | | | | | [phone] | | | | | | | [...] [address] | | | | | | [place], [place] | | | | | | [address] | | | | | | [phone] | | | | | | | | +--------+ + + + + | 09/27/ | Telephone-S | Liver Transplant | Vimal Crowe MD | | | 2019 | [place] | | [address] | | | | | | [address], | | | | | | [place] [address] | | | | | | [phone] | | | | | | | [...] Rd | | | | | | [place], [place] | | | | | | [address] | | | | | | [phone] | | | | | | | [...] + + documented in this encounter Results CULTURE, URINE BACTI (05/23/2020 7:28 AM PDT) [...] | | | | | | [place] [address] Patient | | | | | | [...] [address] | [place], [place] | [phone] | | [place] | | | | [...] Testing Performed at: [facility] [place] CLIA: [id number] - [address] | [facility] | | [place] [address] | - [place] | + + + + + + + + | Performing | Address | City/State/Zipcode | Phone Number | | Organization | | | | + + + + + | [facility] - | [address], [place] | [phone] | | [place] | | | | [...] Testing Performed at: [facility] CLIA: [id number] - [address] | [facility] | | [place] [address] | - [place] | + + + + + + + + | Performing | Address | City/State/Zipcode | Phone Number | | Organization | | | | + + + + + | [facility] - | [address], [place] | [phone] | | [place] | | | | [...] Testing Performed at: [facility] CLIA: [id number] - [address] | [facility] | | [place] [address] | - [place] | + + + + + + + + | Performing | Address | City/State/Zipcode | Phone Number | | Organization | | | | + + + + + | [facility] - | [address] | [phone] | | [place] | | | | + + + + + documented in this encounter Visit Diagnoses Not on filedocumented in this encounter"
--- OUTSIDE RECORDS SUMMARY | ~2020-07-29 | XMS | Encounter Summary ---
Demographics + + + | Address | [address] | | | [place] [address] | + + + | Home Phone [...] [place] | | | | | [address] | | + + + + + Care Team Providers + +------+ + | Care Applications Tester Name | Role | Phone | + +------+ + | Sharon David MD | PCP | | + +------+ + Encounter Details +--------+ + + + + | Date | Type | Department | Care Team | Description | +--------+ + + + + | 07/21/ | [facility] | Nephrology & | Angélica Chao, | RE: Steffen Duran | | 2020 | Encounter | Hypertension at | [address] | | | | | [place] [address] [address] | [address] | | | | | [address] | [place], [place] | | | | | [place] [address] | [address] | | | | | [phone] | [phone] | | | | | | | [...] Rd | | | | | | [place], [place] | | | | | | [address] | | | | | | [phone] | | | | | | | | +--------+ + + + + | 09/27/ | Telephone-S | Liver Transplant | Vimal Crowe MD | | | 2019 | cheduled | | [address] | | | | | | [facility] [address] [place], | | | | | | [place] [address] | | | | | | [phone] | | | | | | | [...] Rd | | | | | | [place], [place] | | | | | | [address] | | | | | | [phone] | | | | | | | | +--------+ + + + + documented as of this encounter Visit Diagnoses Not on filedocumented in this encounter"
--- OUTSIDE RECORDS SUMMARY | ~2020-07-29 | XMS | Encounter Summary ---
Demographics + + + | Address | [address] | | | [place] [address] | + + + | Home Phone [...] [place] | | | | | [id number] | | + + + + + Care Team Providers + +------+ + | Care Multiple Needle Stitcher Name | Role | Phone | + +------+ + | Sharon David MD | PCP | | + +------+ + Reason for Visit + +--------+ + | Reason | Onset | Comments | | | Date | | + +--------+ + | Transplant Status | 07/23/ | Status 7 | | Change | 2019 | | + +--------+ + Encounter Details +--------+ + + + + | Date | Type | Department | Care Team | Description | +--------+ + + + + | 07/23/ | Documentati | Clinical | Elizabeth Garcia RN | Transplant Status | | 2019 | on | Transplant Services | [address] [facility] | Change (Status 7) | | | | [address] [facility] | [address] | | | | | [address] [place], | [place], [place] | | | | | [place] [address] | [address] | | | | | [phone] | | | +--------+ + + + [...] encounter Miscellaneous Notes Telephone Encounter - Elizabeth Garcia RN - 07/23/2019 3:48 PM [facility] inpatient Hepatology team Dr. Rodriguez & Dr. Baldwin, patient made Status 7 (temporarily inactive) on waitlist, due to new atrial arrhythmia noted today. Patient to be notified by inpatient hepatology team. Dr. Weeks notified of Status 7 and in agreement with plan. documented in this encounter Plan of Treatment +--------+ + + + + | Date | Type | Specialty | Care Team | Description | +--------+ + + + + | 08/08/ | Telephone-S | Nephrology | Angélica Chao, | | | 2019 | [place] | | [address] | | | | | | [address] | | | | | | [place], [place] | | | | | | [address] | | | | | | [phone] | | | | | | | | +--------+ + + + + | 09/27/ | Telephone-S | Liver Transplant | Vimal Crowe MD | | | 2019 | cheduled | | [address] | | | | | | [address], | | | | | | [place] [address] | | | | | | [phone] | | | | | | | | +--------+ + + + + | 10/03/ | Appointment | Cardiology | | | | 2019 | | | | | +--------+ + + + + | 10/03/ | Office | Cardiology | Cyril Samuel | | | 2019 | Visit | | MD Patricia [address] | | | | | | [address] | | | | | | [place] | | | | | | [address] | | | | | | [phone] | | | | | | | | +--------+ + + + + documented as of this encounter Visit Diagnoses Not on filedocumented in this encounter"
--- OUTSIDE RECORDS SUMMARY | ~2020-07-29 | XMS | Encounter Summary ---
Demographics + + + | Address | [address] | | | [place] [address] | + + + | Home Phone [...] [place] | | | | | [address] | | + + + + + Care Team Providers + +------+ + | Care Skiver Sock Linings Name | Role | Phone | + +------+ + | Sharon David MD | PCP | | + +------+ + Encounter Details +--------+--------+ + + + | Date | Type | Department | Care Team | Description | +--------+--------+ + + + | 09/10/ | Travel | | | | | [...] Rd | | | | | | [place], [place] | | | | | | [address] | | | | | | [phone] | | | | | | | | +--------+ + + + + | 09/27/ | Telephone-S | Liver Transplant | Vimal Crowe MD | | | 2019 | [place] | | [address] | | | | | | [address], | | | | | | [place] [address] | | | | | | [phone] | | | | | | | [...] [place] | | | | | | [address] | | | | | | [phone] | | | | | | | | +--------+ + + + + documented as of this encounter Visit Diagnoses Not on filedocumented in this encounter"
--- OUTSIDE RECORDS SUMMARY | ~2020-07-29 | XMS | Encounter Summary ---
Demographics + + + | Address | [address] | | | [place] [address] | + + + | Home Phone [...] Author + + + | Author | [facility] | + + + | Organization | [facility] | + + + | [...] [place] | | | | | [address] | | + + + + + Care Team Providers + +------+ + | Care Brick Grader Name | Role | Phone | + +------+ + | Sharon David MD | PCP | | + +------+ + Reason for Visit + +--------+ + | Reason | Onset | Comments | | | Date | | + +--------+ + | Lab Results | 07/06/ | [facility] 07.05.2020 | | | 2020 | | + +--------+ + Encounter Details +--------+ + + + + | Date | Type | Department | Care Team | Description | +--------+ + + + + | 07/06/ | Abstract | Clinical | Vimal Crowe MD | Lab Results | | 2019 | | Transplant Services | [address] | ([facility] | | | | [address] | [address] [place], | 07.05.2020) | | | | [address] [place], | [place] [address] | | | | | [place] [address] | [phone] | | | | | [phone] | | | +--------+ + + + [...] Rd | | | | | | [place] | | | | | | [address] | | | | | | [phone] | | | | | | | | +--------+ + + + + | 09/27/ | Telephone-S | Liver Transplant | Vimal Crowe MD | | | 2019 | [place] | | [address] | | | | | | [facility] [address] [place], | | | | | | [place] [address] | | | | | | [phone] | | | | | | | | +--------+ + + + + | 10/03/ | Appointment | Cardiology | | | | 2019 | | | | | +--------+ + + + + | 10/03/ | Office | Cardiology | Cyril Samuel | | | 2019 | Visit | | MD Patricia [address] [facility] | | | | | | [address] | | | | | | [place], [place] | | | | | | [address] | | | | | | [phone] | | | | | | | [...] Results LIVER TRANSPLANT POST PANEL (EXT RESULTS) (07/05/2020 9:40 AM PDT) + + + + [...] + + + + | GLUCOSE, | 313 | | [facility] | | | PLASMA [...] + + + + | CREATININE | 2.51 | mg/dL | [facility] | | | [...] + + + + | MAGNESIUM,P | 2.2 | mg/dL | [facility] | | | [...] + + | AST(SGOT) | 20 | U/L | [facility] | | | | | | LAB - | | | | | | [place] | | + + + + + + | ALT (SGPT) | 24 | U/L | [facility] | | | | | | LAB - | | | | | | [place] | | + + + + + + | URIC ACID, | 7.2 | mg/dL | [facility] | | | PLASMA | | | LAB - | | | (LAB) | | | [place] | | + + + + + + | WHITE CELL | 6.1 | K/cu mm | [facility] | | | COUNT | | | LAB - | | | | | | [place] | | + + + + + + | NEUTROPHIL | 63.7 | % | [facility] | | | % | | | LAB - | | | | | | [place] | | + + + + + + | ABSOLUTE | 3.89 | | [facility] | | | NEUTROPHIL | | | LAB - | | | COUNT | | | [place] | | + [...] + + + + | PLATELET | 108 | K/cu mm | [facility] | | | COUNT | | | LAB - | | | | | | [place] | | + + + + + + | TACROLIMUS | 6.0 | ng/mL | [facility] | | | [...] | + + + + + | [facility] - | [address] | [place] | [phone] | | [place] | | | | + + + + + documented in this encounter Visit Diagnoses Not on filedocumented in this encounter"
--- OUTSIDE RECORDS SUMMARY | ~2020-07-29 | XMS | Encounter Summary ---
Demographics + + + | Address | [address] | | | [place] [address] | + + + | Home Phone [...] [place] | | | | | [address] | | + + + + + Care Team Providers + +------+ + | Care Tobacco Stripper Name | Role | Phone | + +------+ + | Sharon David MD | PCP | | + +------+ + Reason for Visit AUTH/CERT +--------+--------+ + [...] Description | +--------+---------+ + + + | 10/12/ | Office | [facility] | Dennys Hinson, PT | Difficulty walking | | 2019 | Visit | Therapy Services at | [address] | (Primary Dx); Leg | | | | [facility] | [address] [place], | edema; Status post | | | | [address] | [place] [address] | liver transplant | | | | [facility] | [phone] | ([facility]) | | | | and Healing, | | | | | | [facility] | | | | | | [place], [place] | | | | | | [address] | | | | | | [phone] | | | +--------+---------+ + + + [...] encounter Progress Notes Dennys Hinson, PT - 10/12/2019 9:15 AM PST Insurance: Payor: [facility] MEDICAID / Plan: [facility] [place] / Product Type: Medicaid / Non-Medicare SUBJECTIVE: 10/12/2019 Dealing with depression, not been doing exercises, mostly sleeping during the day. Has random CARVER's front and back of head. Post op: 9 weeks History of Presenting Problems: Don[place] is a 54 y.o. person with complaints of post Liver trans plant on . Limited mobility due to leg and pelvic region swelling. Diabetic, states his numbers are looking good. HD 3x/wk Now at home single floor 5 stairs to go in managing with handrail. Family member at home with him for 3 months. Walking in home, outdoors-yesterday went to [place] for the day did a little walking. Swelling in legs Open wound R ankle Tingling toes with prolonged walking. D/c from hospital 4 days ago, has yet to do any home exercises. Activity limitations and participation restrictions: NO LIFTING 10 LBS FOR 2-3 MONTHS Patient's Activity and participation goal(s) with therapy: care for self, walk for 2 hours Precautions: no bending, lifting > 10 lbs or twisting, for 8-12 weeks. OBJECTIVE: Vitals BP 126/72 HR 81 Po2 =100% Observation/Posture: Alert, Difficult to understand patients speech, as he mumbles quietl y at times. Range Of Motion: UE WFL Ankle Strength: UE grossly 5/5, ankles, knees 5/5 Able to toe rise and heel rise with 2H Motor Control: no significant tremor today Sensation: light touch intact feet/toes Vision and eye movements: no problems reported. Balance Gait: walking to appt with no AD Deviations: still ER feet approx 45 deg out toe. Outcome measure Interpretation 54 y.o. Score 09/03/2019 09/28/2019 5 Times Sit to Stand not tested [...] min walk test 50-59 yo: male 2178' BP 147/75 Hr 75 PO2 100% Walked 770 feet No stops Post vitals 147/71 HR 82 Po2 98% Treatment: seated nu step legs only 4 minutes level 2 HR 84 PO2 99% 1 minute rest, 2 minutes on, 1 minute rest, 2 minutes on. Total work time 8 minutes. Post ex vitals: BP 126/64, HR 82, PO2 100 % No SOBOE Side steps Calf stretch Seated rest Rows with pink band 6x Single straight arm row 6x [place] band Single arm Forward shoulder motion 6x [place] band Education: Rehabilitation diagnosis and plan of prison program: Exercise Date given Ankle pumps in sitting 10x 3x day 09/03/2019 LAQ 10x 3x day 09/03/[address] 10x 3x day 09/03/2019 Mini squat 10x 3x day 09/03/2019 Bridging 10x 3x day 09/21/2019 Rowing Side lunges 09/28 ASSESSMENT: Low endurance with exercises - provided rest breaks. Medical issues including depression, wt loss, decreased activity since Liver transplant. FUNCTIONAL GOALS: due in 12 weeks Goal [...] slow and painful PLAN Next visit plan: progress leg strengthening exercises. Endurance exercises This note is to serve as the discharge summary if the patient fails to attend further Physi julia Therapy appointments or contact the therapist regarding any change in their status. [facility] Scheduled Appointment time: 9:15 AM pt late 15 min. The patient was seen for a total of 30 minutes of treatment time. 30 minutes was in direct contact care as described above and on completed flow sheets. Treatment Interventions duration in minutes: Procedure: Therapeutic Exercise 30 min Authorization information for first visit and progress reports Procedure Codes: Therapeutic Exercise 84410 and Gait Training 02127 Minutes per session: 45 Total number of [...] walking Next progress report 11/02/2019 Insurance: Payor: [facility] MEDICAID / Plan: [facility] [place] / Product Type: Medicaid / Number visits authorized: 13 (09/04/2019) Number visits used: 4 Outcome Measure 09/03/2019 Activity 1 (3 point [...] | 2019 | [place] | | [address] [facility] | | | | | | [address] | | | | | | [place], [place] | | | | | | [address] | | | | | | [phone] | | | | | | | | +--------+ + + + + | 09/27/ | Telephone-S | Liver Transplant | Vimal Crowe MD | | | 2019 | [place] | | [address] | | | | | | [facility] [address] [place], | | | | | | [place] [address] | | | | | | [phone] | | | | | | | [...] Rd | | | | | | [place], [place] | | | | | | [address] | | | | | | [phone] | | | | | | | | +--------+ + + + + documented as of this encounter Procedures + +--------+ + + + | Procedure Name | Priori | Date/Time | Associated Diagnosis | Comments | | | ty | | | | + +--------+ + + + | [place] THERAPEUTIC | Routin | 10/12/2019 | Difficulty walking | | | EXERCISES | e | 3:20 PM | Leg edema Status | | | | | PST | post liver | | | | | | transplant (HCC) | | + +--------+ + + + documented in this encounter Visit Diagnoses + + | Diagnosis | + + | Difficulty walking - Primary Difficulty in walking | + + | Leg edema Edema | + + | Status post liver transplant (HCC) Liver replaced by transplant | + + documented in this encounter"
--- OUTSIDE RECORDS SUMMARY | ~2020-07-29 | XMS | Encounter Summary ---
Demographics + + + | Address | [address] | | | [place] [address] | + + + | Home Phone | | + + + | Preferred Language | Unknown | + + + | Marital Status | Single | + + + | Yazidi Affiliation | NON | + + + [...] [place] | | | | | [address] | | + + + + + Care Team Providers + +------+ + | Care Criminalist Name | Role | Phone | + +------+ + | Sharon David MD | PCP | | + +------+ + Encounter Details +--------+ + + + + | Date | Type | Department | Care Team | Description | +--------+ + + + + | 12/04/ | Abstract | Clinical | Vimal Crowe MD | | | 2019 | | Transplant Services | [address] | | | | | [address] | [address] [place], | | | | | [place], | [place] [address] | | | | | [place] [address] | [phone] | | | | | [phone] | | | +--------+ + + + [...] Rd | | | | | | [place], [place] | | | | | | [address] | | | | | | [phone] | | | | | | | | +--------+ + + + + | 09/27/ | Telephone-S | Liver Transplant | Vimal Crowe MD | | | 2019 | [place] | | [address] | | | | | | [facility] [address] [place], | | | | | | [place] [address] | | | | | | [phone] | | | | | | | | +--------+ + + + + | 10/03/ | Appointment | Cardiology | | | | 2019 | | | | | +--------+ + + + + | 10/03/ | Office | Cardiology | Cyril Samuel | | | 2019 | Visit | Darren Gomez MD [address] | | | | | | [address] | | | | | | [place], [place] | | | | | | [address] | | | | | | [phone] | | | | | | | | +--------+ + + + + documented as of this encounter Procedures + +--------+ + + + | Procedure Name | Priori | Date/Time | Associated Diagnosis | Comments | | | ty | | | | + +--------+ + + + | LIVER TRANSPLANT | Routin | 12/04/2019 | | Results for this | | POST PANEL (EXT | e | 11:40 AM | | procedure are in the | | RESULTS) | | PST | | results section. | + +--------+ + + + documented in this encounter Results LIVER TRANSPLANT POST PANEL (EXT RESULTS) (12/04/2019 11:40 AM PST) + +-------+ + + + | Component | Value | Ref Range | Performed | Pathologist | | | | | At | Signature | + +-------+ + + + | POTASSIUM, | 4.9 [...] + + | [facility] - | [address] | [place] | [phone] | | [place] | | | | + + + + + documented in this encounter Visit Diagnoses Not on filedocumented in this encounter"
--- OUTSIDE RECORDS SUMMARY | ~2020-07-29 | XMS | Encounter Summary ---
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 | | | | | ascites | Rd | and Healing, | | | | | (HCC) | [place], [place] | Building [address], | | | | | Procedures | [address] | 1st Floor | | | | | PHYSICAL | Phone: | [place], [place] | | | | | THERAPY | [phone] | [address] | | | | | REFERRAL | | Phone: | | | | | | | [phone] | | | | | | | Fax: | | | | | | | [phone] | +--------+--------+ + + + + Encounter Details +--------+---------+ + + + | Date | Type | Department | Care Team | Description | +--------+---------+ + + + | 09/28/ | Office | [facility] Physical | Dennys Hinson, PT | Difficulty walking | | 2019 | Visit | Therapy Services at | [address] | (Primary Dx); Leg | | | | [place] [address] [place], | edema; Status post | | | | [address] | [place] [address] | liver transplant | | | | [place] for [facility] | [phone] | (HCC) | | | | and Healing, | | | | | | Building 1, 1st | | | | | | Floor [place], [place] | | | | | | [address] | | | | | | [phone] | | | +--------+---------+ + + + [...] encounter Progress Notes Dennys Hinson, PT - 09/28/2019 9:15 AM PST Insurance: Payor: [facility] [place] / Plan[place] [facility] [place] / Product Type: Medicaid / Non-Medicare [facility] PHYSICAL THERAPY EVALUATION Past Medical History: Diagnosis [...] mellitus, Disp: 15 mL, Rfl: 1 Insulin [place] (Disposable) (COMFORT EZ PEN NEEDLES) 31 gauge [...] treatment: Dialysis, post liver transplant care SUBJECTIVE: 09/28/2019 Less tired this week. Walking more on errands. Post op: 9 weeks History of Presenting [...] months. Walking in home, outdoors-yesterday went to [place] for the day did a little walking. [...] BP 141/78 HR 79 Po2 =100% Observation/Posture: Alert, Range Of Motion: UE WFL Ankle Strength: [...] vitals 147/71 HR 82 Po2 98% Treatment: stationary recumbent bike 5 minutes 3.5 level, 55-65 rpm Standing feet straight on lines step outs forward then to sides (partial lunge) 5x each direction Rows with orange band 10x 2 Education: Rehabilitation diagnosis and plan of senior care program: Exercise Date given Ankle pumps in sitting 10x 3x day 09/03/2019 LAQ 10x 3x day 09/03/[address] 10x 3x day 09/03/2019 Mini squat 10x 3x day 09/03/2019 Bridging 10x 3x day 09/21/2019 Rowing Side lunges 09/28 ASSESSMENT: Tolerated exercises well, low walking endurance per 6 MWT score. FUNCTIONAL GOALS: due in 12 weeks Goal 09/03/2019 Status @ eval (09/03/2019) Status of goal (11/02/2019) Pt will be consistent and independent with home exercise program to promote self-efficacy(1 11/03/2018) Home exercise program initiated Pt will be [...] regarding any change in their status. DENNYS HINSON, PT [facility] Scheduled Appointment time: 9:15 AM pt late 15 min. The patient was seen for a total of 30 minutes of treatment time. 30 minutes was in direct contact care as described above and on completed flow sheets. Treatment Interventions duration in minutes: Procedure: Therapeutic Exercise 30 min Authorization information for first visit and progress reports Procedure Codes: Therapeutic Exercise 32176 and Gait Training 99485 Minutes per session: 45 Total number of [...] walking Next progress report 11/02/2019 Insurance: Payor: [facility] [place] / Plan[place] [facility] [place] / Product Type: Medicaid / Number visits authorized: 13 (09/04/2019) Number visits used: 3 Outcome Measure 09/03/2019 Activity 1 (3 point [...] | | 2019 | [place] | | [address] | | | | | | [address] | | | | | | [place], [place] | | | | | | [address] | | | | | | [phone] | | | | | | | | +--------+ + + + + | 09/27/ | Telephone-S | Liver Transplant | Vimal Crowe MD | | | 2019 | [place] | | [address] | | | | | | [address], | | | | | | [place] [address] | | | | | | [phone] | | | | | | | | +--------+ + + + + | 10/03/ | Appointment | Cardiology | | | | 2019 | | | | | +--------+ + + + + | 10/03/ | Office | Cardiology | Cyril Samuel | | | 2019 | Visit | | MD Patricia [address] | | | | | | [address] | | | | | | [place], [place] | | | | | | [address] | | | | | | [phone] | | | | | | | | +--------+ + + + + documented as of this encounter Procedures + +--------+ + + + | Procedure Name | Priori | Date/Time | Associated Diagnosis | Comments | | | ty | | | | + +--------+ + + + | CO THERAPEUTIC | Routin | 09/28/2019 | Difficulty walking | | | EXERCISES | e | 2:09 PM | Leg edema Status | | [...]
--- OUTSIDE RECORDS SUMMARY | ~2020-07-29 | XMS | Encounter Summary ---
Demographics + + + | Address | [address] | | | [place] [address] | + + + | Home Phone [...] [place] | | | | | [address] | | + + + + + Care Team Providers + +------+ + | Care Hay Sorter Name | Role | Phone | + +------+ + | Sharon David MD | PCP | | + +------+ + Encounter Details +--------+ + + + + | Date | Type | Department | Care Team | Description | +--------+ + + + + | 06/10/ | MyChart | [facility] | Tyson Bellamy, | RE: Steffen Duran | | 2019 | Encounter | Clinics at S | MD [address] | | | | | [place] [address] [place], | | | | | [address] [facility] | [place] [address] | | | | | Health and Healing, | [phone] | | | | | [facility] | | | | | | [place], [place] | | | | | | [address] | | | | | | [phone] | | | +--------+ + + + [...] this encounter Miscellaneous Notes Telephone Encounter - Jonathan Kelly PharmD - 07/15/2019 12:34 PM PDTPharmacy Documentation MISC - deferiprone :: 5 Minutes Spent Contacted patient's sister Joanne who informed me that his deferiprone will be delivered via [employer] on 07/16/19. Jonathan Kelly, Pharm.D., BCOP elephone Encounter - Magalys Miller, PharmD - 07/06/2019 1:28 PM PDTPharmacy Documentation MISC - deferipro ne :: 10 Minutes Spent Per Madhuri Buckner telephone encounter: Received notification from pharmacy that prior auth for 1000 mg tablets has been approved. Called pharmacy and spoke with Carmelina. She states [employer] has already picked up today but will contact family to arrange delivery. Nicole Miller, PharmD elephone Encoun hermelindo - Claudia Cotter - 06/26/2019 10:00 AM PDTTeam Coordinator Documentation: Form faxed to [employer] and a copy uploaded to this encounter. Electronic ally signed by Claudia Cotter at 06/26/2019 10:00 AM PDTTelephone Encounter - Reina Quinones PharmElizabeth - 06/25/2019 4:18 PM PDTPharmacy Documentation MISC - deferiprone :: 60 Minut es Spent Deferiprone must be filled through [employer] [facility] program. Provided physician order/prescription & state of medical necessity and prescriber enrollmen t form to [facility] for Dr. Bellamy to fill out. documented in this en counter Plan of Treatment +--------+ + + + + | Date | Type | Specialty | Care Team | Description | +--------+ + + + + | 08/08/ | Telephone-S | Nephrology | Angélica Chao, | | | 2019 | [place] | | [address] | | | | | | [address] | | | | | | [place], [place] | | | | | | [address] | | | | | | [phone] | | | | | | | | +--------+ + + + + | 09/27/ | Telephone-S | Liver Transplant | Vimal Crowe MD | | | 2019 | [place] | | [address] | | | | | | [address], | | | | | | [place] [address] | | | | | | [phone] | | | | | | | [...] Rd | | | | | | [place], [place] | | | | | | [address] | | | | | | [phone] | | | | | | | | +--------+ + + + + documented as of this encounter Visit Diagnoses Not on filedocumented in this encounter"
--- OUTSIDE RECORDS SUMMARY | ~2020-07-29 | XMS | Encounter Summary ---
Demographics + + + | Address | [address] | | | [place] [address] | + + + | Home Phone | | + + + | Preferred Language | Unknown | + + + | Marital Status | Single | + + + | Orthodox Affiliation | NON | + + [...] [place] | | | | | [address] | | + + + + + Care Team Providers + +------+ + | Care Pediatric Physical Therapist Name | Role | Phone | + +------+ + | Sharon David MD | PCP | | + +------+ + Encounter Details +--------+ + + + + | Date | Type | Department | Care Team | Description | +--------+ + + + + | 05/06/ | MyChart | Liver Transplant | Vimal Crowe MD | RE: Steffen Duran | | 2018 | Encounter | at [facility] [address] | | | | | [address] | [address] [place], | | | | | Physician's | [place] [address] | | | | | [place] [address] [place] [address] | [phone] | | | | | [place], [place] | | | | | | [address] | | | | | | [phone] | | | +--------+ + + + [...] Rd | | | | | | [place], [place] | | | | | | [address] | | | | | | [phone] | | | | | | | | +--------+ + + + + | 09/27/ | Telephone-S | Liver Transplant | Vimal Crowe MD | | | 2019 | [place] | | [address] | | | | | | [address], | | | | | | [place] [address] | | | | | | [phone] | | | | | | | | +--------+ + + + + | 10/03/ | Appointment | Cardiology | | | | 2019 | | | | | +--------+ + + + + | 10/03/ | Office | Cardiology | Cyril Samuel | | | 2019 | Visit | | MD Patricia [address] | | | | | | [address] | | | | | | [place], [place] | | | | | | [address] | | | | | | [phone] | | | | | | | | +--------+ + + + + documented as of this encounter Visit Diagnoses Not on filedocumented in this encounter"
--- OUTSIDE RECORDS SUMMARY | ~2020-07-29 | XMS | Encounter Summary ---
Demographics + + + | Address | [address] | | | [place] [address] | + + + | Home Phone [...] [place] | | | | | [address] | | + + + + + Care Team Providers + +------+ + | Care Boom Man Name | Role | Phone | + +------+ + | Sharon David MD | PCP | | + +------+ + Encounter Details +--------+ + + + + | Date | Type | Department | Care Team | Description | +--------+ + + + + | 07/03/ | Pharmacy | Outpatient Retail | | | | 2019 | Visit | [facility] | | | | | | [address] | | | | | | Loop [place], [place] | | | | | | [address] | | | | | | [phone] | | | +--------+ + + + [...] Rd | | | | | | [place], [place] | | | | | | [address] | | | | | | [phone] | | | | | | | | +--------+ + + + + | 09/27/ | Telephone-S | Liver Transplant | Vimal Crowe MD | | | 2019 | cheduled | | [address] | | | | | | [place], | | | | | | [place] [address] | | | | | | [phone] | | | | | | | [...] Rd | | | | | | [place], [place] | | | | | | [address] | | | | | | [phone] | | | | | | | | +--------+ + + + + documented as of this encounter Visit Diagnoses Not on filedocumented in this encounter"
--- OUTSIDE RECORDS SUMMARY | ~2020-07-29 | XMS | Encounter Summary ---
Demographics + + + | Address | [address] | | | [place] [address] | + + + | Home Phone [...] [place] | | | | | [address] | | + + + + + Care Team Providers + +------+ + | Care Operations Leader Name | Role | Phone | + +------+ + | Sharon David MD | PCP | | + +------+ + Encounter Details +--------+ + + + + | Date | Type | Department | Care Team | Description | +--------+ + + + + | 03/13/ | Documentati | Nephrology & | Alicia Canchola, | | | 2019 | on | Hypertension at [facility] | DO [address] | | | | | [address] | [facility] | | | | | Loop Physician's | [place], [place] | | | | | [place], [facility] floor | [address] | | | | | [place], [place] | [phone] | | | | | [address] | | | | | | [phone] | | | +--------+ + + + [...] | | 2019 | [place] | | [address] | | | | | | [address] | | | | | | [place], [place] | | | | | | [address] | | | | | | [phone] | | | | | | | | +--------+ + + + + | 09/27/ | Telephone-S | Liver Transplant | Vimal Crowe MD | | | 2019 | [place] | | [address] | | | | | | [address] | | | | | | [place] [address] | | | | | | [phone] | | | | | | | [...] Rd | | | | | | [place], [place] | | | | | | [address] | | | | | | [phone] | | | | | | | | +--------+ + + + + documented as of this encounter Visit Diagnoses Not on filedocumented in this encounter"
--- OUTSIDE RECORDS SUMMARY | ~2020-07-29 | XMS | Encounter Summary ---
Demographics + + + | Address | [address] | | | [place] [address] | + + + | Home Phone [...] | | | | | [place] | | | | | [address] | | + + + + + Care Team Providers + +------+ + | Care Control Officer Name | Role | Phone | + +------+ + | Sharon David MD | PCP | | + +------+ + Encounter Details +--------+ + + + + | Date | Type | Department | Care Team | Description | +--------+ + + + + | 12/09/ | Abstract | Clinical | Vimal Crowe MD | | | 2019 | | Transplant Services | [address] | | | | | [address] | [address] [place], | | | | | [place], | [place] [address] | | | | | [place] [address] | [phone] | | | | | [phone] | | | +--------+ + + + [...] Rd | | | | | | [place], [place] | | | | | | [address] | | | | | | [phone] | | | | | | | | +--------+ + + + + | 09/27/ | Telephone-S | Liver Transplant | Vimal Crowe MD | | | 2019 | [place] | | [address] | | | | | | [facility] [address] [place], | | | | | | [place] [address] | | | | | | [phone] | | | | | | | | +--------+ + + + + | 10/03/ | Appointment | Cardiology | | | | 2019 | | | | | +--------+ + + + + | 10/03/ | Office | Cardiology | Cyril Samuel | | | 2019 | Visit | Darren Gomez MD [address] | | | | | | [address] | | | | | | [place], [place] | | | | | | [address] | | | | | | [phone] | | | | | | | | +--------+ + + + + documented as of this encounter Procedures + +--------+ + + + | Procedure Name | Priori | Date/Time | Associated Diagnosis | Comments | | | ty | | | | + +--------+ + + + | LIVER TRANSPLANT | Routin | 12/07/2019 | | Results for this | | POST PANEL (EXT | e | 2:41 PM | | procedure are in the | | RESULTS) | | PST | | results section. | + +--------+ + + + documented in this encounter Results LIVER TRANSPLANT POST PANEL (EXT RESULTS) (12/07/2019 2:41 PM PST) + + + + + + | Component | Value | Ref Range | Performed | Pathologist | | | | | At | Signature | + + + + + + | SODIUM, | 144 | mmol/L | [facility] | | | [...] + | TOTAL CO2, | 23 | mmol/L | [facility] | | | PLASMA | | | LAB - | | | (LAB) | | | [place] | | + + + + + + | GLUCOSE, | 164 (A) | 65 - 110 mg/dL | [facility] | | | PLASMA | | | LAB - | | | (LAB) | | | [place] | | + + + + + + | BUN, PLASMA | 38 | mg/dL | [facility] | | | (LAB) | | | LAB - | | | | | | [place] | | + + + + + + | CREATININE | 1.79 | mg/dL | [facility] | | | PLASMA | | | LAB - | | | (LAB) | | | [place] | | + + + + + + | CALCIUM, | 8.9 | mg/dL | [facility] | | | PLASMA | | | LAB - | | | (LAB) | | | [place] | | + + + + + + | MAGNESIUM,P | 1.4 | mg/dL | [facility] | | | LASMA | | | LAB - | | | | | | [place] | | + + + + + + | TOTAL | 6.0 | g/dL | [facility] | | | [...] + | ALK PHOS | 53 | U/L | [facility] | | | | | | LAB - | | | | | | [place] | | + + + + + + | AST(SGOT) | 11 | U/L | [facility] | | | | | | LAB - | | | | | | [place] | | + + + + + + | ALT (SGPT) | 9 | U/L | [facility] | | | [...] + + + + | HEMATOCRIT | 33.5 | % | [facility] | | | | | | LAB - | | | | | | [place] | | + + + + + + | HEMOGLOBIN | 11.0 (A) | 13.5 - 17.5 | [facility] | | | | | g/dL | LAB - | | | | | | [place] | | + + + + + + | PLATELET | 85 | K/cu mm | [facility] | | | COUNT | | | LAB - | | | | | | [place] | | + + + + + + | TACROLIMUS | 4.4 | ng/mL | [facility] | | | [...] + + | [facility] - | [address] | [place] | [phone] | | [place] | | | | + + + + + documented in this encounter Visit Diagnoses Not on filedocumented in this encounter"
--- OUTSIDE RECORDS SUMMARY | ~2020-07-29 | XMS | Encounter Summary ---
Demographics + + + | Address | [address] | | | [place] [address] | + + + | Home Phone [...] [place] | | | | | [address] | | + + + + + Care Team Providers + +------+ + | Care Desizing Machine Operator Name | Role | Phone | + +------+ + | Sharon David MD | PCP | | + +------+ + Encounter Details +--------+ + + + + | Date | Type | Department | Care Team | Description | +--------+ + + + + | 10/07/ | Production Control Manager | Clinical | Nisreen Chakraborty, | Liver replaced by | | 2019 | | Transplant Services | [facility] [address] | transplant (HCC) | | | | [address] | [address] | (Primary Dx) | | | | [place], | [place], [place] | | | | | [place] [address] | [address] | | | | | [phone] | [phone] | | | | | | | [address] Rd | | | | | | [place], [place] | | | | | | [address] | | | | | | [phone] | | | | | | | | +--------+ + + + + | 09/27/ | Telephone-S | Liver Transplant | Vimal Crowe MD | | | 2019 | cheduled | | [address] | | | | | | [address], | | | | | | [place] [address] | | | | | | [phone] | | | | | | | [...] Rd | | | | | | [place], [place] | | | | | | [address] | | | | | | [phone] | | | | | | | | +--------+ + + + + documented as of this encounter Results PHOSPHATIDYLETHANOL (PETH) (10/09/2019 8:12 AM PST) + [...] REG UNIV | | | (PETH) | 16:0/18:1.3-klpzisdra-7- | | PTH - [facility] | | | | unhqnu-qy-xpilbvl-3-phos | | | | | | phoethanol.Analysis [...] | | | | | d by [facility]. It has not | | | | | | been cleared or | | | | | | approvedby the Food and | | | | | | Drug | | | | | | Administration.Performed | | | | | | at: [facility] [address] | | | | | | [address] [place]. | | | | | | [place] [address] | | | | + + + + + + + + | Specimen | + + | Blood - Blood | | (substance) | + + + + + + + | Performing | Address | City/State/Zipcode | Phone Number | | Organization | | | | + + + + + | [facility] | [address] | [place], [place] | | | UNIV PTH [facility] | | [address] | | + + + + + [...] B: | | | | | | [employer]/CSP[employer]formed | | | | | | by [employer],[address] | | | | | | [address], [facility] | | | | | | [address] | | | | | | [phone].[employer]. | | | | | | Harley gomez MD, | | | | | | Lab. Director | | | | + + + + + + + + | Specimen | + + | Urine | + + + + + + + | Performing | Address | City/State[facility] | Phone Number | | Organization | | | | + + + + + | [facility] | [address] | [place], [place] | | | UN[facility] P[facility] | | [address] | | + + + + + documented in this encounter Visit Diagnoses + + | Diagnosis | + + | Liver replaced by transplant (HCC) - Primary Liver replaced by transplant | + + documented in this encounter
--- OUTSIDE RECORDS SUMMARY | ~2020-07-29 | XMS | Encounter Summary ---
Demographics + + + | Address | [address] | | | [place] [address] | + + + | Home Phone [...] [place] | | | | | [address] | | + + + + + Care Team Providers + +------+ + | Care Assistant General Manager Name | Role | Phone | + +------+ + | Sharon David MD | PCP | | + +------+ + Encounter Details +--------+ + + + + | Date | Type | Department | Care Team | Description | +--------+ + + + + | 08/29/ | Pharmacy | Specialty Pharmacy | | | | 2019 | Visit | Services [address] | | | | [address] | | | | | | [place], [place] | | | | | | [address] | | | | | | [phone] | | | +--------+ + + + [...] | | 2019 | [place] | | [address] | | | | | | [address] | | | | | | [place], [place] | | | | | | [address] | | | | | | [phone] | | | | | | | | +--------+ + + + + | 09/27/ | Telephone-S | Liver Transplant | Vimal Crowe MD | | | 2019 | cheduled | | [address] | | | | | | [facility] [place], | | | | | | [place] [address] | | | | | | [phone] | | | | | | | | +--------+ + + + + | 10/03/ | Appointment | Cardiology | | | | 2019 | | | | | +--------+ + + + + | 10/03/ | Office | Cardiology | Cyril Samuel | | | 2019 | Visit | | MD Patricia [address] | | | | | | [address] | | | | | | [place], [place] | | | | | | [address] | | | | | | [phone] | | | | | | | | +--------+ + + + + documented as of this encounter Visit Diagnoses Not on filedocumented in this encounter"
--- OUTSIDE RECORDS SUMMARY | ~2020-07-29 | XMS | Encounter Summary ---
Demographics + + + | Address | [address] | | | [place] [address] | + + + | Home Phone [...] Author + + + | Author | [facility] | + + + | Organization | [facility] | + + + | Address | Unknown | + + + | Phone | Unavailable | + + + Support + + + + + | Name | Relationship | Address | Phone | + + + + + | Doreen Manley | ECON | [address] | | | | | [place] | | | | | [address] | | + + + + + Care Team Providers + +------+ + | Care Food Counter Worker Name | Role | Phone | + +------+ + | Sharon David MD | PCP | | + +------+ + Reason for Referral PROC - Dept/Practice Procedure (Urgent) +--------+--------+ + + + + | Status | Reason | Specialty | Diagnoses / | Referred By | Referred To | | | | | Procedures | Contact | Contact | +--------+--------+ + + + + | Closed | | Interventiona | Diagnoses | Chao, | Irc Body | | | | l Radiology | KAR (acute | Angélica Gavin, | [place]oke [address] | | | | | kidney | [address] | [address] | | | | | injury) | [address] | [address] | | | | | (HCC) | [address] | Mailcode: | | | | | Procedures | [place], [place] | [address] | | | | | [place] | [address] | [place] | | | | | VENOUS | Phone: | Hospital | | | | | ACCESS | [phone] | [facility] | | | | | PROCEDURE | Fax: | [place], [place] | | | | | [place] REMOVAL | [phone] | [address] | | | | | TUNNELED CV | | Phone: | | | | | CATH LA | | [phone] | | | | | REMOVAL SONIA | | Fax: | | | | | CV CATH W SQ | | [phone] | | | | | PORT/PUMP | | | | | | | LA | | | | | | | FLUOROGUIDE | | | | | | | FOR VEIN | | | | | | | DEVICE | | | +--------+--------+ + + + + Reason for Visit PROC - Dept/Practice Procedure (Urgent) +--------+--------+ + + + + | Status | Reason | Specialty | Diagnoses / | Referred By | Referred To | | | | | Procedures | Contact | Contact | +--------+--------+ + + + + | Closed | | Interventiona | Diagnoses | Chao, | Irc Body | | | | l Radiology | KAR (acute | Angélica W, | [facility] [address] | | | | | kidney | MD [address] | [address] | | | | | injury) | [address] | [address] | | | | | (HCC) | [address] | Mailcode: | | | | | Procedures | [place], [place] | [address] | | | | | [place] | [address] | [place] | | | | | VENOUS | Phone: | Hospital | | | | | ACCESS | [phone] | [facility] | | | | | PROCEDURE | Fax: | [facility] [place] | | | | | [place] REMOVAL | [phone] | [address] | | | | | TUNNELED CV | | Phone: | | | | | CATH LA | | [phone] | | | | | REMOVAL SONIA | | Fax: | | | | | CV CATH W SQ | | [phone] | | | | | PORT/PUMP | | | | | | | [place] | | | | | | | FLUOROGUIDE | | | | | | | FOR VEIN | | | | | | | DEVICE | | | +--------+--------+ + + + + Encounter Details +--------+ + + + + | Date | Type | Department | Care Team | Description | +--------+ + + + + | 09/15/ | Hospital | [facility] | Angélica Chao, | | | 2019 | Encounter | Interventional | [address] | | | | | [facility] | [address] | | | | | [address] | [place], [place] | | | | | [address] [facility] | [address] | | | | | [facility] [place], | [phone] | | | | | [place] [address] | | | | | | [phone] | | | +--------+ + + + [...] + + + | Blood Pressure | 156/100 | 09/15/2019 2:26 PM | | | | | PST | | + + + + + | Pulse | 77 | 09/15/2019 2:26 PM | | | | | PST | | + + + + + | Temperature | 36.7 C (98.1 F) | 09/15/2019 2:26 PM | | | | | PST | | + + + + + | Respiratory Rate | 20 | 09/15/2019 2:26 PM | | | | | PST | | + + + + + | Oxygen Saturation | 100% | 09/15/2019 2:26 PM | | | | | PST | | + + + + + | Inhaled Oxygen | - | - | | | Concentration | | | | + + + + + | Weight | - | - | | + + + + + | Height | - | - | | + + + + + | Body Mass Index | - | - | | + [...] documented as of this encounter Discharge Instructions Liliam Baker RN - 09/15/2019Discharge Information Central Venous Catheter Removal Call your doctor if you notice any unusual symptoms. Activity Take it easy the rest of the day. Keep head elevated for next 2 hours. Limit lifting to 5lbs today. No exercising, lifting heavy objects, or strenuous activity fo r the next 2-3 days. You may resume your regular activities, including driving, today. No sw imming for 2-3 days. Pain Management You may use over the counter medications such as acetaminophen (Tylenol) or Ibuprofen (Advi l) for minor discomfort. Wound Care Keep site clean and dry. OK to shower 24-48 hours after procedure. Remove dressing afterwar d. No soaking, swimming, submerging for 2-3 days until skin is completely healed. Daily non occlusive dressing changes for the next 3-5 days sooner if soiled. Then cover as needed. Call Your Physician for Any of the Following: - Fever and chills - Swelling or severe pain in the arm on the side of the central line - Bleeding, spreading bruise, redness, drainage or swelling at the access site You may call your physician or call the Interventional Radiology Office at . After 4 PM or on weekends contact the physician product applications engineer for your doctor, or call and ask to speak to the Interventional Radiology Fellow product applications engineer. Call or return to the Interventional Radiology Office as needed. documented in this encounter Medications at Time of [...] + + +---------+ + + | Insulin Bosque | Use as directed for | 150 [...] + + documented as of this encounter H&P Notes Ashley Michelle PA-C - 09/15/2019 2:00 PM PST Interventional Radiology Outpatient Pre-Procedure Note Planned Procedure: Central venous catheter removal Assessment: 54 y.o. male with an indwelling LIJ TDC catheter placed on 08/26/2019. The patient no longer requires this central venous access and currently presents for removal. Liver transplant, renal recovery. Plan: Removal of tunneled cuffed HD catheter. Appreciate consult. Please call with questions or concerns. ASHLEY MICHELLE PA-C [id number] After hours page [phone]. Greater than 25 minutes spent in all for discussion with patient/ family, reviewing chart n otes, vitals, medications, labs, I&Os, review of imaging, and coordinating care. This time is separate and independent of procedures performed. HPI: 54 y.o. male with an indwelling LIJ TDC catheter placed on 08/26/2019. The patient has compl eted liver transplant with renal recovery. The patient no longer requires this central venou s access and currently presents for removal. Dialysis attempted once, but he had reaction to unknown medication or prep. No HD done or ever required. Current Medications: Current Outpatient Medications Medication Sig Alcohol Swabs [...] every Saturday. Indications: funga l infection prevention furosemide 40 mg oral tablet Take 1 tablet by mouth once daily. insulin lispro (Human) 100 unit/mL subcutaneous insulin pen Inject 5 units under the sk in with breakfast, 10 units under the skin with lunch, 12 units under the skin with dinner. Max dose = 56 units per day Indications: type 2 diabetes mellitus Insulin Bosque (Disposable) (COMFORT EZ PEN NEEDLES) 31 gauge [...] pain. predniSONE 5 mg oral tablet Take 2 tablets by mouth once daily. Indications: liver cox splant rejection prevention QUEtiapine (SEROQUEL) 25 mg oral tablet Take 0.5 tablets by mouth once daily at bedtime . tacrolimus 1 mg oral capsule Take 4 capsules by mouth two times daily. Indications: niels er transplant rejection prevention trimethoprim-sulfamethoxazole 80-400 mg oral tablet Take 1 tablet by mouth once daily. Indications: pneumonia prevention valGANciclovir 450 mg oral tablet Take 1 tablet by mouth once daily. Indications: viral infection prevention No current facility-administered medications for this encounter. Allergies: Allergies Allergen Reactions Doxycycline Hives and Rash Past Medical History: Past Medical History: Diagnosis Date Cirrhosis (HCC) CKD (chronic kidney disease) Surgical History: Past Surgical History Procedure Laterality Date Leg surgery Social History: Social History Socioeconomic History Marital status: Single [...] file Gets together: Not on file Attends latter-day service: Not on file Active member of club or organization: Not on file Attends meetings of clubs or organizations: Not on file Relationship status: Not on file Other Topics Concern Not on file Social History Narrative Not on file Physical Examination: BP 156/100, Pulse 77, Temperature 36.7 C (98.1 F), Temperature source Oral, RR 20, SpO2 100%. Facility age limit for growth percentiles is 18 years. Gen: Awake and alert HEENT: Normocephalic Chest: Tunneled CVC LIJ, chest clean, dry, and intact; no erythema or drainage, nontender Heart: RRR Lungs: speaking full sentences, breathing nonlabored on RA Abdomen: not examined Extremities: spontaneously moving extremities Neuro: grossly intact Labs: Lab Results Component Value Date WBC 3.69 09/14/2019 HB 8.4 09/14/2019 HCT 27.3 09/14/2019 PLT 127 09/14/2019 MCV 99.6 09/14/2019 RDW 61.1 09/14/2019 Lab Results Component Value Date NA 140 09/14/2019 K 5.2 09/14/2019 CL 108 09/14/2019 BICARB 28 09/14/2019 BUN 27 09/14/2019 CR 1.82 09/14/2019 GLU 123 09/14/2019 CA 8.9 09/14/2019 AST 14 09/14/2019 ALT 17 09/14/2019 AP 55 09/14/2019 TBILI 0.6 09/14/2019 TP 6.5 09/14/2019 ALB 3.8 09/14/2019 DIRBILI 4.2 07/07/2019 ANIONGAP 4 09/14/2019 ANIONALBCOR 4 09/14/2019 Lab Results Component Value Date APTT 30.9 08/25/2019 FIBRINOGEN 185 08/25/2019 Lab Results Component Value Date INRPT 1.27 (H) 08/29/2019 Imaging: Images from central venous catheter placement on 08/26/2019 reviewed. ADVERSE DRUG REACTIONS: Allergies Allergen Reactions Doxycycline Hives and Rash RED FLAGS: None PREMEDICATIONS NEEDED: None Planned access point(S): None Current level of pain: No Planned level of sedation: None P.O. status: Regular Renal Diet Airway Examination: normal airway ASA Status: 3. I spent a total of 25 minutes in >50% of counseling and discussion with patient and reviewi ng pertinent chart notes and imaging. Ashley Michelle PA-C [id number] signed by Ashley Michelle PA-C at 09/15/2019 3:14 PM PSTdocumented i n this encounter Procedure Notes Ashley Michelle PA-C - 09/15/2019 2:00 PM PSTAssociated Order(s): CATHETER REMOVAL, SONIA NELED CENTRAL VENOUS, WITHOUT PORTProcedure(s): CATHETER REMOVAL, TUNNELED CENTRAL VENOUS, W ITHOUT PORTPre-Procedure Diagnose(s): Hepatorenal failure (HCC); Liver transplant recipient (HCC)Post-Procedure Diagnose(s): Hepatorenal failure (HCC); Liver transplant recipient (HCC) INTERVENTIONAL RADIOLOGY 09/15/19 14:20 Procedure: Tunneled CVC Removal, LIJ TDC Patient identified. Allergies and Medications confirmed. Labs and vitals reviewed. PARQ discussed. Patient agrees. All questions answered. Indication: Treatment completed. Removal requested. Performed by Ashley Michelle PA-C . Attending Christie Treviño MD Detail: Patient laying flat. Lines aspirated and secured closed. Dressing removed. Sterile technique throughout, prepped and draped in sterile fashion. Site anesthestized with approxi mately 5 mL of 1% xylocaine with epinephrine. Sutures removed. Good analgesia was achieved. Gentle manual manipulation of cuff with disruption of fibrous adhesions. Patient with maximal inhalation and performing valsalva maneuver, line was removed under di rect proximal and distal pressure continuously applied for >5 minutes. Line tip and cuff rem chantelle intact. No signs of infection by gross examination. Sterile, occlusive dressing applied . No bleeding. No complications. Tolerated well. HOB elevated. Call light within reach. Disposition: Successful removal of tunneled CVC without complication. Instructions given ve rbal and in writting. Patient understands. All questions answered. Ashley Michelle PA-C [id number] signed by Ashley Michelle PA-C at 09/15/2019 3:18 PM PSTdocumented i n this encounter Plan of Treatment +--------+ + + + + | Date | Type | Specialty | Care Team | Description | +--------+ + + + + | 08/08/ | Telephone-S | Nephrology | Angélica Chao, | | | 2019 | [place] | | [address] | | | | | | [facility] | | | | | | [place], [place] | | | | | | [address] | | | | | | [phone] | | | | | | | | +--------+ + + + + | 09/27/ | Telephone-S | Liver Transplant | Vimal Crowe MD | | | 2019 | cheduled | | [address] | | | | | | [address] | | | | | [place] [address] | | | | | | [phone] | | | | | | | [...] Rd | | | | | | [place], [place] | | | | | | [address] | | | | | | [phone] | | | | | | | | +--------+ + + + + + +---------+--------+ + + | Name | Type | Priori | Associated Diagnoses | Date/Time | | | | ty | | | + +---------+--------+ + + | IR CENTRAL VENOUS | Imaging | Urgent | KAR (acute kidney | 09/15/2019 1:59 PM | | ACCESS PROCEDURE | | | injury) ([facility]) | PST | + +---------+--------+ + + + +---------+--------+ + + | Name | Type | Priori | Associated Diagnoses | Order Schedule | | | | ty | | | + +---------+--------+ + + | IR CENTRAL VENOUS | Imaging | Urgent | KAR (acute kidney | 1 Occurrences | | ACCESS PROCEDURE | | | injury) ([facility]) | starting 09/15/2019 | | | | | | until 09/15/2019 | + +---------+--------+ + + documented as of this encounter Procedures + +--------+ + + + | Procedure Name | Priori | Date/Time | Associated Diagnosis | Comments | | | ty | | | | + +--------+ + + + | CATHETER REMOVAL, | Routin | 09/15/2019 | | Results for this | | TUNNELED CENTRAL | e | 2:00 PM | | procedure are in the | | VENOUS, WITHOUT PORT | | PST | | results section. | + +--------+ + + + documented in this encounter Results CATHETER REMOVAL, TUNNELED CENTRAL VENOUS, WITHOUT PORT (09/15/2019 2:00 PM PST) + + + | Narrative | Performed At | + + + | Ashley Michelle PA-C 09/15/2019 3:18 PM INTERVENTIONAL | | | RADIOLOGY 09/15/19 14:20 Procedure: Tunneled CVC Removal, LIJ | | | TDC Patient identified. Allergies and Medications confirmed. Labs | | | and vitals reviewed. PARQ discussed. Patient agrees. All | | | questions answered. Indication: Treatment completed. Removal | | | requested. Performed by Ashley Michelle PA-C . Attending Christie | | | MD [place] Detail: Patient laying flat. Lines aspirated and | | | secured closed. Dressing removed. Sterile technique throughout, | | | prepped and draped in sterile fashion. Site anesthestized with | | | approximately 5 mL of 1% xylocaine with epinephrine. Sutures | | | removed. Good analgesia was achieved. Gentle manual manipulation | | | of cuff with disruption of fibrous adhesions. Patient with maximal | | | inhalation and performing valsalva maneuver, line was removed under | | | direct proximal and distal pressure continuously applied for >5 | | | minutes. Line tip and cuff removed intact. No signs of infection by | | | gross examination. Sterile, occlusive dressing applied. No | | | bleeding. No complications. Tolerated well. HOB elevated. Call light | | | within reach. Disposition: Successful removal of tunneled CVC | | | without complication. Instructions given verbal and in writting. | | | Patient understands. All questions answered. Ashley Michelle | | | [place] [id number] | | + + + documented in this encounter Visit Diagnoses + + | Diagnosis | + + | KAR (acute kidney injury) (HCC) Acute kidney failure, unspecified | + + documented in this encounter
--- OUTSIDE RECORDS SUMMARY | ~2020-07-29 | XMS | Encounter Summary ---
Demographics + + + | Address | [address] | | | [place] [address] | + + + | Home Phone [...] [place] | | | | | [address] | | + + + + + Care Team Providers + +------+ + | Care Telephone Surveyor Name | Role | Phone | + [...] | [address] | [address] [place], | | | | | [place], | [place] [address] | | | | | [place] [address] | [phone] | | | | | [phone] | | | +--------+ + + + [...] Rd | | | | | | [place], [place] | | | | | | [address] | | | | | | [phone] | | | | | | | | +--------+ + + + + | 09/27/ | Telephone-S | Liver Transplant | Vimal Crowe MD | | | 2019 | [place] | | [address] | | | | | | [facility] [address] [place], | | | | | | [place] [address] | | | | | | [phone] | | | | | | | | +--------+ + + + + | 10/03/ | Appointment | Cardiology | | | | 2019 | | | | | +--------+ + + + + | 10/03/ | Office | Cardiology | Cyril Samuel | | | 2019 | Visit | Darren Gomez MD [address] | | | | | | [address] | | | | | | [place], [place] | | | | | | [address] | | | | | | [phone] | | | | | | | [...] [address] | [place] | [phone] | | [place] | | | | + + + + + documented in this encounter Visit Diagnoses Not on filedocumented in this encounter"
--- OUTSIDE RECORDS SUMMARY | ~2020-07-29 | XMS | Encounter Summary ---
Demographics + + + | Address | [address] | | | [place] [address] | + + + | Home Phone [...] [place] | | | | | [address] | | + + + + + Care Team Providers + +------+ + | Care Buffer Automatic Name | Role | Phone | + +------+ + | Sharon David MD | PCP | | + +------+ + Reason for Visit + +--------+ + | Reason | Onset | Comments | | | Date | | + +--------+ + | Lab Draw | 07/21/ | | | | 2019 | | + +--------+ + Encounter Details +--------+ + + + + | Date | Type | Department | Care Team | Description | +--------+ + + + + | 07/21/ | Abstract | Clinical | Vimal Crowe MD | Lab Draw | | 2019 | | Transplant Services | [address] | | | | | [address] | [address] [place], | | | | | [place], | [place] [address] | | | | | [place] [address] | [phone] | | | | | [phone] | | | +--------+ + + + [...] Rd | | | | | | [place], [place] | | | | | | [address] | | | | | | [phone] | | | | | | | | +--------+ + + + + | 09/27/ | Telephone-S | Liver Transplant | Vimal Crowe MD | | | 2019 | [place] | | [address] | | | | | | [address], | | | | | | [place] [address] | | | | | | [phone] | | | | | | | | +--------+ + + + + | 10/03/ | Appointment | Cardiology | | | | 2019 | | | | | +--------+ + + + + | 10/03/ | Office | Cardiology | Cyril Samuel | | | 2020 | Visit | | MD Patricia [address] | | | | | | [address] | | | | | | [place], [place] | | | | | | [address] | | | | | | [phone] | | | | | | | | +--------+ + + + + documented as of this encounter Procedures + +--------+ + + + | Procedure Name | Priori | Date/Time | Associated Diagnosis | Comments | | | ty | | | | + +--------+ + + + | NICOTINE + | Routin | 07/14/2019 | | Results for this | | METABOLITE SCREEN, | e | | | procedure are in the | | URINE | | | | results section. | + +--------+ + + + documented in this encounter Results NICOTINE + METABOLITE SCREEN, URINE (07/14/2019) + +-------+ + + + | Component [...] + + | [facility] - | [address] | [place] | [phone] | | [place] | | | | + + + + + documented in this encounter Visit Diagnoses Not on filedocumented in this encounter"
--- OUTSIDE RECORDS SUMMARY | ~2020-07-29 | XMS | Encounter Summary ---
Demographics + + + | Address | [address] | | | [place] [address] | + + + | Home Phone [...] [place] | | | | | [address] | | + + + + + Care Team Providers + +------+ + | Care Fitness Leader Name | Role | Phone | + +------+ + | Sharon David MD | PCP | | + +------+ + Reason for Visit + +--------+ + | Reason | Onset | Comments | | | Date | | + +--------+ + | Transplant | 08/21/ | LIT DSA Summary Report | | | 2019 | | + +--------+ + Encounter Details +--------+ + + + + | Date | Type | Department | Care Team | Description | +--------+ + + + + | 08/21/ | Documentati | Kidney Transplant | Joby Dave, | Transplant (LIT DSA | | 2019 | on | at [facility] [address] | MD [address] | Summary Report) | | | | Shyann Chapin | [address] | | | | | Physician's | [place], [place] | | | | | Shyann, [address]rd floor | [address] | | | | | [place], [place] | [phone] | | | | | [address] | | | | | | [phone] | | | +--------+ + + + [...] Rd | | | | | | [place] | | | | | | [address] | | | | | | [phone] | | | | | | | | +--------+ + + + + | 09/27/ | Telephone-S | Liver Transplant | Vimal Crowe MD | | | 2019 | [place] | | [address] | | | | | | [facility] [place], | | | | | | [place] [address] | | | | | | [phone] | | | | | | | [...] [place] | | | | | | [address] | | | | | | [phone] | | | | | | | | +--------+ + + + + documented as of this encounter Visit Diagnoses Not on filedocumented in this encounter"
--- OUTSIDE RECORDS SUMMARY | ~2020-07-29 | XMS | Encounter Summary ---
Demographics + + + | Address | [address] | | | [place] [address] | + + + | Home Phone [...] [place] | | | | | [address] | | + + + + + Care Team Providers + +------+ + | Care Tire Service Supervisor Name | Role | Phone | + +------+ + | Sharon David MD | PCP | | + +------+ + Encounter Details +--------+ + + + + | Date | Type | Department | Care Team | Description | +--------+ + + + + | 04/15/ | MyChart | Digestive Health | Vimal Crowe MD | RE: Steffen Duran | | 2019 | Encounter | [facility] [address] | [address] | | | | | [address] | [facility] [address] [place], | | | | | for Health and | [place] [address] | | | | | Healing, [address] | [phone] | | | | | [place], [place] | | | | | | [address] | | | | | | [phone] | | | +--------+ + + + [...] this encounter Miscellaneous Notes Telephone Encounter - Ramana Serna MA - 04/17/2019 1:47 PM PDTCalled Meera and she i s on break until Saturday so she will send us records next week elephone Encounter - Ramana Serna MA - 11:17 AM PDTRequest was sent 04/15/19 elephone Encounter - Ivana Hawkins RN - 04/15/2019 1:34 PM PDT Called patients [facility] treatment program and their fax is [phone]. Requesting records be sent to [phone] signed by Ivana Hawkins RN at 04/15/2019 1:56 PM PDT documented in this encounter Plan of Treatment +--------+ + + + + | Date | Type | Specialty | Care Team | Description | +--------+ + + + + | 08/08/ | Telephone-S | Nephrology | Angélica Chao, | | | 2019 | [place] | | [address] | | | | | | [address] | | | | | | [place] | | | | | | [address] | | | | | | [phone] | | | | | | | | +--------+ + + + + | 09/27/ | Telephone-S | Liver Transplant | Vimal Crowe MD | | | 2019 | cheduled | | [address] | | | | | | [address] | | | | | | [place] [address] | | | | | | [phone] | | | | | | | | +--------+ + + + + | 10/03/ | Appointment | Cardiology | | | | 2019 | | | | | +--------+ + + + + | 10/03/ | Office | Cardiology | Cyril Samuel | | | 2020 | Visit | | MD Patricia [address] [facility] | | | | | | [address] | | | | | | [place] | | | | | | [address] | | | | | | [phone] | | | | | | | | +--------+ + + + + documented as of this encounter Visit Diagnoses Not on filedocumented in this encounter"
--- OUTSIDE RECORDS SUMMARY | ~2020-07-29 | XMS | Encounter Summary ---
Demographics + + + | Address | [address] | | | [place] [address] | + + + | Home Phone [...] [place] | | | | | [address] | | + + + + + Care Team Providers + +------+ + | Care Ceramics Machine Operator Name | Role | Phone | + +------+ + | Sharon David MD | PCP | | + +------+ + Encounter Details +--------+ + + + + | Date | Type | Department | Care Team | Description | +--------+ + + + + | 06/10/ | Pharmacy | Pharmacy @ [facility] | | | | 2019 | Visit | [address] | | | | | | [address] Mailcode: | | | | | | [facility] | | | | | | and Healing, | | | | | | Building 2 | | | | | | [place], [place] | | | | | | [address] | | | +--------+ + + + [...] Rd | | | | | | [place], [place] | | | | | | [address] | | | | | | [phone] | | | | | | | | +--------+ + + + + | 09/27/ | Telephone-S | Liver Transplant | Vimal Crowe MD | | | 2019 | cheduled | | [address] | | | | | | [facility] [address] [place], | | | | | | [place] [address] | | | | | | [phone] | | | | | | | [...] Rd | | | | | | [place] | | | | | | [address] | | | | | | [phone] | | | | | | | | +--------+ + + + + documented as of this encounter Visit Diagnoses Not on filedocumented in this encounter"
--- OUTSIDE RECORDS SUMMARY | ~2020-07-29 | XMS | Encounter Summary ---
Demographics + + + | Address | [address] | | | [place] [address] | + + + | Home Phone [...] [place] | | | | | [address] | | + + + + + Care Team Providers + +------+ + | Care Cafeteria Cashier Name | Role | Phone | + [...] | Cardiology | Diagnoses | Jimmie, | [place] | | | | | Abnormal | Cyril Gomez, | Health & | | | | | echocardiogr | [address] | [employer] | | | | | am | Neftali Grace | [address] | | | | | Procedures | [address] | [address] | | | | | TRANSTHORACI | [place], [place] | ROAD | | | | | C | [address] | [place], [place] | | | | | ECHOCARDIOGR | Phone: | [address] | | | | | AM, ADULT | [phone] | Phone: | | | | | | Fax: | [phone] | | | | | | [phone] | | + +--------+ + + + [...] | | | | imaging of | [facility] [place] | [address] | | | | | heart and | [address] | [place], [place] | | | | | coronary | Phone: | [address] | | | | | circulation | [phone] | Phone: | | | | | Procedures | Fax: | [phone] | | | | | [place] EST | [phone] | Fax: | | | | | PATIENT | | [phone] | | | | | LEVEL V | | | +--------+--------+ + + + + Encounter Details +--------+---------+ + + + | Date | Type | Department | Care Team | Description | +--------+---------+ + + + | 07/28/ | Office | Cardiology Cardiac | Cyril Samuel | Abnormal | | 2020 | Visit | Transplant at [facility] | MD Patricia [address] [facility] | echocardiogram | | | | [address] | [address] | (Primary Dx) | | | | [place] for [facility] | [facility] [place] | | | | | and Healing, | [address] | | | | | [facility] | [phone] | | | | | Floor [place], [place] | | | | | | [address] | | | | | | [phone] | | | +--------+---------+ + + + [...] po TID, report blood pressures trends to [facility] CHF clinic next week - home heart [...] of metoprolol under the guidance of the [facility] [place] cardiology consult service. In regard to his [...] daily at bedtime. (Long acting insulin). Insulin Temple (Disposable) (COMFORT EZ PEN NEEDLES) 31 gauge x 5/16" miscellaneous (m [facility]) needle Use as directed for 5 insulin injections per day. isosorbide dinitrate 20 mg oral tablet Take 20 mg by mouth three times daily before farnaz ls. lancets (FREESTYLE LANCETS) 28 gauge miscellaneous (mis) [facility] Test blood sugar four ti mes daily [...] 3.2 oz) | SpO2 100% | B CO 27.36 kg/m | BSA 2.11 m Labs: [...] per-operative cardiac MAZE (Transplant Direct. 2017; 4(7): e349), but would not expla in sudden systolic [...] months with repeat echo Cyril Samuel MD Cnc Programmerloan servicing officer Heart Failure and Heart Transplantation [facility] Cardiovascular [facility] [place] Gbaino Huddleston M A - 07/28/2020 11:30 AM [...] Rd | | | | | | [place], [place] | | | | | | [address] | | | | | | [phone] | | | | | | | | +--------+ + + + + | 09/27/ | Telephone-S | Liver Transplant | Vimal Crowe MD | | | 2019 | cheduled | | [address] | | | | | | [address], | | | | | | [place] [address] | | | | | | [phone] | | | | | | | | +--------+ + + + + | 10/03/ | Appointment | Cardiology | | | | 2019 | | | | | +--------+ + + + + | 10/03/ | Office | Cardiology | Jimmie, Cyril | | | 2019 | Visit | | MD Patricia [address] [facility] | | | | | | [address] | | | | | | [place], [place] | | | | | | [address] | | | | | | [phone] | | | | | | | [...] | + + + + + | [facility] | [address] | [place] [address] | | | SERVICES, CORE | PARK [...] and | 50 - 530 ng/mL | [facility] | | | | Female >18 years: [...] | + + + + + | [employer] | [address] | [place] [address] | | | ARTIS TAYLOR | [place] [...] [place] [facility] | [address] | [place] [address] | | | SERVICES, CORE | MOISES [...] SERVICES, | | | | | | [facility] | | | | | | HEALTH [...] | | | LABORATORY | | | CYMR[facility] | | | SERVICES, | | | [...] SERVICES, | | | | | | [facility] | | | | | | HEALTH [...] | + + + + + | [facility] Recroup | [address] | [place] [address] | | | SERVICES, [place] FOR | | | | | HEALTH [...]
--- OUTSIDE RECORDS SUMMARY | ~2020-07-29 | XMS | Encounter Summary ---
Demographics + + + | Address | [address] | | | [place] [address] | + + + | Home Phone [...] Author + + + | Author | [facility] | + + + | Organization | [facility] | + + + | [...] [place] | | | | | [address] | | + + + + + Care Team Providers + +------+ + | Care Direct Marketing Analyst Name | Role | Phone | + +------+ + | Sharon David MD | PCP | | + +------+ + Reason for Visit +--------+--------+ + | Reason | Onset | Comments | | | Date | | +--------+--------+ + | Other | 04/21/ | ED | | | 2019 | | +--------+--------+ + Encounter Details +--------+ + + + + | Date | Type | Department | Care Team | Description | +--------+ + + + + | 04/21/ | Telephone | Clinical | Porsche Perdomo, | Other (ED) | | 2019 | | Transplant Services | RN [address] | | | | | [address] | [address] | | | | | [place], | [place], [place] | | | | | [place] [address] | [address] | | | | | [phone] | | | +--------+ + + + [...] Telephone Encounter - Porsche Perdomo RN - 04/21/2019 4:06 PM PDTReceived notification fr om family that patient was brought to the emergency department following the DSE he was sche duled for as part of the outpatient liver transplant evaluation. After the test he had 2 epi sodes of sustained SVT with hypotension requiring carotid massage. Notified Dr. Crowe, she c [facility] and the plan is to admit patient, Dr. Crowe will call inpatient Hep on service. Spo ke to sister Doreen, working on getting auth to switch to inpatient evaluation. documented in this encounter Plan of Treatment [...] Rd | | | | | | [place], [place] | | | | | | [address] | | | | | | [phone] | | | | | | | | +--------+ + + + + | 09/27/ | Telephone-S | Liver Transplant | Vimal Crowe MD | | | 2019 | [place] | | [address] | | | | | | [address] | | | | | | [place] [address] | | | | | | [phone] | | | | | | | | +--------+ + + + + | 10/03/ | Appointment | Cardiology | | | | 2019 | | | | | +--------+ + + + + | 10/03/ | Office | Cardiology | Cyril Samuel | | | 2020 | Visit | | MD Patricia [address] | | | | | | [address] | | | | | | [place] | | | | | | [address] | | | | | | [phone] | | | | | | | | +--------+ + + + + documented as of this encounter Visit Diagnoses Not on filedocumented in this encounter"
--- OUTSIDE RECORDS SUMMARY | ~2020-07-29 | XMS | Encounter Summary ---
Demographics + + + | Address | [address] | | | [place] [address] | + + + | Home Phone | | + + + | Preferred Language | Unknown | + + + | Marital Status | Single | + + + | Scientologist Affiliation | NON | + + + [...] [place] | | | | | [address] | | + + + + + Care Team Providers + +------+ + | Care Technical Research Scientist Name | Role | Phone | [...] with ascites | [address] | [address] [place] | | | | | Procedures | [address] | Research | | | | | MRI | [place], [place] | [place] | | | | | [place] | [address] | [facility] [place] | | | | | PHY WWO | Phone: | [phone] | | | | | CONTRAST (+ | [phone] | Phone: | | | | | LIVER MASS) | Fax: | [phone] | | | | | [place] MRI, | [phone] | Fax: | | | | | ABDOMEN, | | [phone] | | | | | COMBO | | | +--------+--------+ + + + + Reason for Visit + + + | Reason | Comments | + + + | New patient | | | consultation | | + + + Consultation (Routine) +--------+--------+ + + + + | Status | Reason | Specialty | Diagnoses / | Referred By | Referred To | | | | | Procedures | Contact | Contact | +--------+--------+ + + + + | Closed | | Hepatology | Diagnoses | Frankie, | [place], | | | | | Cirrhosis | Lohith | Vimal Arita MD | | | | | of liver | MD Lei | [address] | | | | | (HCC) | [address] | | | | | | [address] | [facility], | | | | | | [place], | [place] [address] | | | | | | [place] [address] | Phone: | | | | | | Phone: | [phone] | | | | | | [phone] | Fax: | | | | | | Fax: | [phone] | | | | | | [phone] | | +--------+--------+ + + + + Encounter Details +--------+---------+ + + + | Date | Type | Department | Care Team | Description | +--------+---------+ + + + | 11/19/ | Office | Digestive Health | Vimal Crowe MD | Alcoholic hepatitis | | 2019 | Visit | Center at [facility] [address] | [address] | with ascites | | | | [address] | [address] [facility], | (Primary Dx) | | | | for Health and | [place] [address] | | | | | [facility] 2 | [phone] | | | | | [place], [place] | | | | | | [address] | | | | | | [phone] | | | +--------+---------+ + + + [...] + + + | Blood Pressure | 158/67 | 11/19/2018 3:14 PM | | | | | PST | | + + + + + | Pulse | 78 | 11/19/2018 3:14 PM | | | | | PST | | + + + + + | Temperature | 36.3 C (97.4 F) | 11/19/2018 3:14 PM | | | | | PST [...] + + + + | Weight | 86.6 kg (191 lb) | 11/19/2018 3:14 PM | | | | | PST | | + + + + + | Height | 180.3 cm (5' 11") | 11/19/2018 3:14 PM | | | | | PST | | + + + + + | Body Mass Index | 26.64 | 11/19/2018 3:14 PM | | | | | PST | | + + + + + documented in this encounter Patient Instructions Patient Instructions Vimal Crowe MD - 11/19/2018 3:15 PM PST1. Labs today on 3rd floor 2. MRI/MRCP ordered 3. Follow up renal recs- diuretics per renal 4. Continue complete alcohol abstinence and recommend joining outpatient alcohol rehabElect ronically signed by Vimal Crowe MD at 11/19/2018 4:45 PM PST documented in this encounter Progress Notes Vimal Crowe MD - 11/19/2018 3:15 PM PST HEPATOLOGY NEW PATIENT VISIT 11/19/2018 Sharon David MD [address] [place] [address]: [phone] RE: Steffen Duran : [address] David: I had the pleasure of seeing Steffen Duran for consultation in the Liver Clinic at [facility] today. History and physical examination was performed. Pertinent laboratory, imaging, pa thology results were reviewed. HISTORY OF PRESENT ILLNESS: Mr. Duran is a 53 YO man who is referred for alcoholic hepatitis with likely underlying alc oholic cirrhosis. States in December/January 2018 was hospitalized with PNA and may have been slightly jaundiced a t that time. Started getting regular f/u after d/c and was eventually diagnosed with liver d isease/cirrhosis. During that time developed ascites which improved on lasix 20 mg and aldac tone 50 mg daily. No history of EVB, SBP, HE or HCC. Concern of HRS. Last imaging was US zayas ited showing steatosis and no liver lesion. Etoh: Weekends 8-10 beers 30 years, started cutting down. Last use was 06/23/2018, no rehabs. REVIEW OF SYSTEMS: Patient denies fevers, headaches, mouth sores, visual changes, shortness of breath, palpita tions, cough, heartburn, hematuria, rash, dysuria, depression, anxiety. As above, plus wt lo ss. The rest of the review of systems was negative. PAST MEDICAL HISTORY: The patient's medical history, focusing on liver disease is outlined below. (updated today) 1.Hx of alcoholic hep with concern of underlying cirrhosis - Liver Biopsy: none - Treatment: no outpt rehab 2. Hepatic decompensation As above in hpi 3. Secondary Dx --Besides liver disease and etoh use d/o denies any other 4. Preventive care - HBV/HAV status: ? - Bone mineral density- Dexa, Vit D - Flu, Pneumovax: up to date - Colon cancer screening: no polyps 06/2018 5. Social 4 adult children 10/22: mom and sister from [place]- who can come here No smoking No drug including THC PAST SURGICAL HISTORY: 20 years R leg fx FAMILY HISTORY: no liver disease SOCIAL HISTORY: Social History Social History Marital status: Single Spouse name: N/A Number of children: N/A Years of education: N/A Social History Main Topics Smoking status: Never Smoker Smokeless tobacco: Current User Types: Chew Alcohol use Not on file Drug use: Unknown Sexual activity: Not on file Other Topics Concern Not on file Social History Narrative No narrative on file ALLERGIES: Doxycycline MEDICATIONS: Current Outpatient Prescriptions Medication Sig furosemide 20 mg oral tablet Take 20 mg by mouth once daily. lactulose 10 gram/15 mL oral solution Take by mouth. spironolactone 50 mg oral tablet Take 50 mg by mouth once daily. No current facility-administered medications for this visit. PHYSICAL EXAMINATION: BP 158/67 | Pulse 78 | Temp 36.3 C (97.4 F) | Ht 1.803 m (5' 11") | Wt 86.6 kg (191 lb) | BMI 26.64 kg/(m^2), Body mass index is 26.64 kg/m. General Appearance: alert and in no acute distress. HEENT: oropharynx without lesions. Icteric sclerae. Neck: supple, nontender Lungs: clear to auscultation. Heart: RRR w/ +murmur Abdomen: soft, nontender, mild distension Normal bowel sounds. Extremities: + edema Skin: jaundice Neurological exam nonfocal, no asterixis, alert and oriented without encephalopathy. + spider angiomata, palmar erythema. LABS: @LIVERLABS@ No results found for: TBILI, AP, TP, DIRBILI, ALB, AST, ALT Lab Results Component Value Date NA 134. 03/20/1999 K 4.3 03/20/1999 CL 99. 03/20/1999 BICARB 33. 03/20/1999 Lab Results Component Value Date WBC 13.1 (H) 03/20/1999 RBC 3.51 (L) 03/20/1999 HB 10.6 (L) 03/20/1999 HCT 29.5 (L) 03/28/1999 MCV 88.1 03/20/1999 MCHC 34.3 (H) 03/20/1999 RDW 12.5 03/20/1999 PLT 154. 03/20/1999 MPV 8.7 03/20/1999 SIGNIFICANT IMAGING: Note: All available outside records have been reviewed in the course of this visit, and azeb ecially pertinent ones noted above: US limited locally Steatosis, no liver lesion ASSESSMENT/PLAN: Mr. Duran is a 53 YO man who is referred for alcoholic hepatitis with likely underlying alc oholic cirrhosis. # Hx of alcoholic hepatitis with likely underlying alcoholic cirrhosis. Ascites improved on diuretics but concern of HRS and he saw renal today regarding it. No hx of EVB, HE or HCC. Will check MELD labs today. Total bili now worsened. Denied any relapse, will check PEth and also get cross sectional imaging with MRI/MRCP to r/o other etiologies. # Risk for metabolic bone disease. As patients with chronic liver disease and especially ci rrhosis are at risk for osteoporosis, a bone density scan is recommended. Calcium and Vitami n D check and supplementation are also recommended. # Risk for complications from other liver diseases. Recommend hepatitis B vaccination. HAV immune # Nutritional status, risk for malnutrition: Less than 2 grams of sodium/day Recommend cutt ing down on simple carbohydrates and sugar. Recommend adequate protein intake particularly w ith sources such as fish, chicken, legumes, and dairy products. Protein intake should not be restricted in the setting of hepatic encephalopathy. Recommend exercise at least 3x/day for 30-45 minutes. SUMMARY OF RECOMMENDATIONS: 1. Labs today on 3rd floor 2. MRI/MRCP ordered 3. Follow up renal recs- diuretics per renal 4. Continue complete alcohol abstinence and recommend joining outpatient alcohol rehab Thank you for allowing me to participate in the care of this patient. Please feel free to contact me with any questions regarding the patient's care. Warmest regards. Sincerely, MD Vimal Chahal MD Electrician Wiringsmt operator [facility] Hepatology Jose machado in this encounter Plan of Treatment +--------+ + + + + | Date | Type | Specialty | Care Team | Description | +--------+ + + + + | 08/08/ | Telephone-S | Nephrology | Angélica Chao, | | | 2019 | [place] | | [address] [facility] [address] | | | | | | [address] | | | | | | [place], [place] | | | | | | [address] | | | | | | [phone] | | | | | | | | +--------+ + + + + | 09/27/ | Telephone-S | Liver Transplant | Vimal Crowe MD | | | 2019 | [place] | | [address] | | | | | | [address], | | | | | | [place] [address] | | | | | | [phone] | | | | | | | | +--------+ + + + + | 10/03/ | Appointment | Cardiology | | | | 2019 | | | | | +--------+ + + + + | 10/03/ | Office | Cardiology | Cyril Samuel | | | 2019 | Visit | | MD Patricia [address] [facility] | | | | | | [address] | | | | | | [place], [place] | | | | | | [address] | | | | | | [phone] | | | | | | | | +--------+ + + + + documented as of this encounter Results MRI CHOLANGIOGRAPHY WWO CONTRAST [...] | | | + +---------+ + + [facility] - COMPLETE METABOLIC SET (11/19/2018 4:51 PM PST) + + + + + [...] + + + + | CREATININE | 1.26 | 0.70 - 1.30 | [facility] | | | PLASMA | | mg/dL | LABORATORY | | | (LAB) | | | SERVICES, | | | | | | CORE | | + + + + + + | EGFR | >60 | >60 mL/min | [facility] | | | - | | | LABORATORY | | | CHINESE | | | SERVICES, | | | | | | CORE | | + + + + + + | EGFR NON | 60 (L) | >60 mL/min | [facility] | [...] + + + + | CHLORIDE, | 96 (L) | 97 - 108 [...] + + + + | BILIRUBIN | 15.7 (H) | 0.3 - 1.2 mg/dL | [facility] | | | TOTAL | | | LABORATORY | | | | | | SERVICES, | | | | | | CORE | | + + + + + + | TOTAL | 8.4 (H) | 6.4 - 8.2 [...] 89 (H) | <=41 U/L | [facility] | | | | | | LABORATORY | | | | | | SERVICES, | | | | | | CORE | | + + + + + + | ALT (SGPT) | 49 | <=60 U/L | [facility] | | [...] | | Interpretive Information: <60 mL/min/1.73 sq m | SERVICES, CORE | | Chronic Kidney Disease <15 mL/min/1.73 sq m | | | Kidney Failure Estimated GFR greater than 60 mL/min/1.73 sq m is of | | | limited clinical value. The MDRD equation is not valid in the | | | following situations: - Patients under 18 years of age - Severe | | | malnutrition or obesity - Vegetarian diet - Rapidly changing kidney | | | function - Amputees, paraplegics, or other muscle-wasting diseses | | + + + + + + + + | Performing | Address | City/State/Zipcode | Phone Number | | Organization | | | | + + + + + | [facility] | [address] | [place] [address] | | | CLAUDIA, ARTIS | [address] | | | + + + + + IRON AND TIBC (11/19/2018 4:51 PM PST) + +---------+ + + + | Component | Value | Ref Range | Performed | Pathologist | | | | | At | Signature | + +---------+ + + + | IRON | 210 (H) | 50 - 170 ug/dL | [facility] | | | | | | LABORATORY | | | | | | SERVICES, | | | | | | CORE | | + +---------+ + + + | IRON BIND | 209 (L) | 240 - 450 ug/dL | [facility] | | | CAP | | | LABORATORY | | | | | | SERVICES, | | | | | | CORE | | + +---------+ + + + | % | 100 (H) | 20 - 50 [...] | + + + + + | [facility] | [address] | [place] [address] | | | CLAUDIA, ARTIS | [address] | | | + + + + + FERRITIN (11/19/2018 4:51 PM PST) + + + + + [...] | + + + + + | [facility] | [address] | [place] [address] | | | SERVICES, CORE | [address] | | | + + + + + INR (11/19/2018 4:51 PM PST) + + + + + [...] | + + + + + | [facility] | [address] | [place] [address] | | | SERVICES, CORE | [address] | | | + + + + + documented in this encounter Visit Diagnoses + + | Diagnosis | + + | Alcoholic hepatitis with ascites - Primary Acute alcoholic hepatitis | + + documented in this encounter
--- OUTSIDE RECORDS SUMMARY | ~2020-07-29 | XMS | Encounter Summary ---
Demographics + + + | Address | [address] | | | [place] [address] | + + + | Home Phone [...] [place] | | | | | [address] | | + + + + + Care Team Providers + +------+ + | Care Digital Court Reporter Name | Role | Phone | + +------+ + | Sharon David MD | PCP | | + +------+ + Encounter Details +--------+ + + + + | Date | Type | Department | Care Team | Description | +--------+ + + + + | 07/21/ | Pharmacy | [facility] | | | | 2020 | Visit | [address] | | | | | | [address] | | | | | | [place] [address] | | | | | | [phone] | | | +--------+ + + + [...] Rd | | | | | | [place], [place] | | | | | | [address] | | | | | | [phone] | | | | | | | | +--------+ + + + + | 09/27/ | Telephone-S | Liver Transplant | Vimal Crowe MD | | | 2019 | cheduled | | [address] | | | | | | [address], | | | | | | [place] [address] | | | | | | [phone] | | | | | | | [...] | | | | | | [place] | | | | | | [address] | | | | | | [phone] | | | | | | | | +--------+ + + + + documented as of this encounter Visit Diagnoses Not on filedocumented in this encounter"
--- OUTSIDE RECORDS SUMMARY | ~2020-07-29 | XMS | Encounter Summary ---
Demographics + + + | Address | [address] | | | [place] [address] | + + + | Home Phone [...] [place] | | | | | [address] | | + + + + + Care Team Providers + +------+ + | Care Product Examiner Name | Role | Phone | + +------+ + | Sharon David MD | PCP | | + +------+ + Reason for Visit + +--------+ + | Reason | Onset | Comments | | | Date | | + +--------+ + | Evaluation of | 11/03/ | | | response to | 2019 | | | medications | | | + +--------+ + Encounter Details +--------+ + + + + | Date | Type | Department | Care Team | Description | +--------+ + + + + | 11/03/ | Documentati | Liver Transplant | Dileep Lee, | Evaluation of | | 2020 | on | at [facility] [address] | PharmD [address] | response to | | | | [address] | [facility] | medications | | | | Physician's | [place] [address] | | | | | Pavilion, 2nd floor | [phone] | | | | | [facility] [place] | | | | | | [address] | | | | | | [phone] | | | +--------+ + + + [...] Telephone Encounter - Dileep Lee PharmD - 11/03/2019 10:19 AM PST Pharmacy Services: Liver Transplant Pharmacist [...] liver transpl antation. His prograf level is below the target range. Plan: Immunosuppression: see Medication list Prophylaxis: Valcyte, atovaquone Diabetes: blood sugars in appropriate range Hypertension: in good control, continue current medications Osteoporosis: continue supplemental calcium with vitamin D and plan for a bone scan at 6 mo nths post transplant Hypomagnesemia: continue supplemental magnesium replacement Fluid status: stable, off diuretics Renal: stable renal function Scr 1.54 Vitals: There were no vitals taken for [...] (HCC) Liver transplant status (HCC) Pharmacy Preferences: [facility] [id number] [place] [id number] Hours: 8am-9pm Mon-fri; 9-5:30pm Sat-sun E-Prescribing: Yes E-Prescribing Control Substances: Yes [facility] [address] [facility] [place] [address] Hours: 9am-7pm Mon-fri / 9am-6pm Sat / Closed Sun E-Prescribing: Yes E-Prescribing Control Substances: Yes [facility] [address] [facility] [address] [place] [address] Hours: 8am-6pm Mon-fri E-Prescribing: Yes E-Prescribing Control Substances: Yes [facility]. [address] [place] [address] Hours: 8am-430pm Mon-saturday/closed Sat&sun E-Prescribing: Yes E-Prescribing Control Substances: Yes [...] Take 1 tablet by mouth once daily. ATOVAQUONE 750 MG/5 ML ORAL SUSPENSION Take 10 mL by mouth once daily. BASAGLAR KWIKPEN U-100 INSULIN 100 UNIT/ML (3 ML) SUBCUTANEOUS Inject 10 Units under the sk in (SUBC) once daily at bedtime. Indications: type 2 diabetes mellitus BLOOD SUGAR DIAGNOSTIC STRIPS Use 1 test strip to check blood sugar two times daily before meals. Indications: type 2 diabetes mellitus BLOOD-GLUCOSE METER KIT Use as directed. Use as directed. FLUDROCORTISONE 0.1 MG TABLET Take 1 tablet by mouth once daily. GLIMEPIRIDE 1 MG TABLET Take 1 tablet by mouth once daily with breakfast. Indications: type 2 diabetes mellitus PEN NEEDLE, DIABETIC 31 GAUGE X 5/16" Use as directed for 5 insulin injections per day. LANCETS 28 GAUGE Test blood sugar four times daily (before each meal and at bedtime). Indic ations: type 2 diabetes mellitus MAGNESIUM OXIDE 250 MG TAB (MG DOSING UPDATE) Take 2 tablets by mouth two times daily. METOPROLOL SUCCINATE ER 25 MG TABLET,EXTENDED RELEASE 24 HR Take 1 tablet by mouth once keren ly. Indications: high blood pressure MIRTAZAPINE 30 MG TABLET Take 1 tablet by mouth once daily in the evening. Indications: lac k of appetite TACROLIMUS 1 MG CAPSULE Take 4 capsules by mouth two times daily. Indications: liver transp lant rejection prevention VALGANCICLOVIR 450 MG TABLET Take 1 tablet by mouth once daily. Indications: viral infectio n prevention Assessment/Recommendations: 1. Immunosuppression: -AZA On HOLD - for low WBC -Prednisone - discontinued for mental health issue -Tacrolimus 4 mg po bid - 12-hour trough level = FK506 Date Value Ref Range Status 11/02/2019 4.4 (L) 5.0 - 15.0 ng/mL Final 10/29/2019 5.5 5.0 - 15.0 ng/mL Final 10/27/2019 Final Comment: See scanned report 2. Electrolytes -Vitamin D -Multivitamin -Calcium -Phosphate level: PO4 Date Value Ref Range Status 11/02/2019 4.6 2.4 - 4.7 mg/dL Final -Magnesium level: MG Date Value Ref Range Status 11/02/2019 1.7 1.6 - 2.6 mg/dL Final 3. Vitals Pain: well controlled Wt Readings from Last 1 Encounters: 11/03/19 88 kg (194 lb) Ht Readings from Last 1 Encounters: 11/03/19 70" Last 1 Encounter BMI Readings: Date BMI 11/03/2019 27.84 kg/m2 Labs/vitals: Recent Labs 11/02/19 1010 WBC 2.56* HB 9.7* HCT 31.7* PLT 77* Recent Labs 11/02/19 1010 K 4.6 BUN 23* CR 1.46* MG 1.7 CA 8.9 PO4 4.6 TBILI 0.3 AST 15 ALT 22 Recent Labs 11/02/19 1010 FK506 4.4* Medication management: all medications were reviewed for [...] questions regarding this information contact pharmacy, pager #[phone] Thank you, Dileep Lee PharmD, [facility] Clinical Pharmacist do cumented in this encounter Plan of Treatment +--------+ + + + + | Date | Type | Specialty | Care Team | Description | +--------+ + + + + | 08/08/ | Telephone-S | Nephrology | Angélica Chao, | | | 2019 | [place] | | [address] | | | | | | [address] | | | | | | [place], [place] | | | | | | [address] | | | | | | [phone] | | | | | | | | +--------+ + + + + | 09/27/ | Telephone-S | Liver Transplant | Vimal Crowe MD | | | 2019 | [place] | | [address] | | | | | | [address], | | | | | | [place] [address] | | | | | | [phone] | | | | | | | [...] Rd | | | | | | [place], [place] | | | | | | [address] | | | | | | [phone] | | | | | | | | +--------+ + + + + documented as of this encounter Visit Diagnoses Not on filedocumented in this encounter
--- OUTSIDE RECORDS SUMMARY | ~2020-07-29 | XMS | Encounter Summary ---
Demographics + + + | Address | [address] | | | [place] [address] | + + + | Home Phone [...] [place] | | | | | [address] | | + + + + + Care Team Providers + +------+ + | Care Chisel Worker Name | Role | Phone | + +------+ + | Sharon David MD | PCP | | + +------+ + Encounter Details +--------+ + + + + | Date | Type | Department | Care Team | Description | +--------+ + + + + | 09/15/ | Pharmacy | Outpatient Retail | | | | 2018 | Visit | [facility] | | | | | | [address] | | | | | | [address] [place], [place] | | | | | | [address] | | | | | | [phone] | | | +--------+ + + + [...] Rd | | | | | | [place], [place] | | | | | | [address] | | | | | | [phone] | | | | | | | | +--------+ + + + + | 09/27/ | Telephone-S | Liver Transplant | Vimal Crowe MD | | | 2019 | cheduled | | [address] | | | | | | [facility] [place], | | | | | | [place] [address] | | | | | | [phone] | | | | | | | [...] Rd | | | | | | [place], [place] | | | | | | [address] | | | | | | [phone] | | | | | | | | +--------+ + + + + documented as of this encounter Visit Diagnoses Not on filedocumented in this encounter"
--- OUTSIDE RECORDS SUMMARY | ~2020-07-29 | XMS | Encounter Summary ---
Demographics + + + | Address | [address] | | | [place] [address] | + + + | Home Phone [...] [place] | | | | | [address] | | + + + + + Care Team Providers + +------+ + | Care Planer Operator / Grader Name | Role | Phone | + +------+ + | Sharon David MD | PCP | | + +------+ + Reason for Visit + +--------+ + | Reason | Onset | Comments | | | Date | | + +--------+ + | Transplant Form | 04/28/ | DEVINOS Race/Ethnicity | | Update | 2019 | | + +--------+ + Encounter Details +--------+ + + + + | Date | Type | Department | Care Team | Description | +--------+ + + + + | 04/28/ | Abstract | Clinical | Laurita Pinon | Transplant Form | | 2019 | | Transplant Services | MD Jayce [address] | Update (UNOS | | | | [address] | [place], [place] | Race/Ethnicity) | | | | [place], | [address] | | | | | [place] [address] | [phone] | | | | | [phone] | | | +--------+ + + + [...] Rd | | | | | | [place], [place] | | | | | | [address] | | | | | | [phone] | | | | | | | | +--------+ + + + + | 09/27/ | Telephone-S | Liver Transplant | Vimal Crowe MD | | | 2019 | [place] | | [address] | | | | | | [address], | | | | | | [place] [address] | | | | | | [phone] | | | | | | | [...] [address] | | | | | | [place] | | | | | | [address] | | | | | | [phone] | | | | | | | | +--------+ + + + + documented as of this encounter Visit Diagnoses Not on filedocumented in this encounter"
--- OUTSIDE RECORDS SUMMARY | ~2020-07-29 | XMS | Encounter Summary ---
Demographics + + + | Address | [address] | | | [place] [address] | + + + | Home Phone [...] [place] | | | | | [address] | | + + + + + Care Team Providers + +------+ + | Care Creative Services Specialist Name | Role | Phone | + +------+ + | Sharon David MD | PCP | | + +------+ + Encounter Details +--------+ + + + + | Date | Type | Department | Care Team | Description | +--------+ + + + + | 07/30/ | Documentati | [facility] | Tyson Bellamy, | | | 2019 | on | Clinics at S | [address] | | | | | [address] [place], | | | | | [address] [facility] | [place] [address] | | | | | Health and Healing, | [phone] | | | | | Building [address] | | | | | | [place], [place] | | | | | | [address] | | | | | | [phone] | | | +--------+ + + + [...] Rd | | | | | | [place], [place] | | | | | | [address] | | | | | | [phone] | | | | | | | | +--------+ + + + + | 09/27/ | Telephone-S | Liver Transplant | Vimal Crowe MD | | | 2019 | cheduled | | [address] | | | | | | [address], | | | | | | [place] [address] | | | | | | [phone] | | | | | | | [...] Rd | | | | | | [place], [place] | | | | | | [address] | | | | | | [phone] | | | | | | | | +--------+ + + + + documented as of this encounter Procedures + +--------+ + + + | Procedure Name | Priori | Date/Time | Associated Diagnosis | Comments | | | ty | | | | + +--------+ + + + | CBC, WITH | Routin | 07/07/2019 | | Results for this | | DIFFERENTIAL | e | | | procedure are in the | | | | | | results section. | + +--------+ + + + | LIVER SET | Routin | 07/07/2019 | | Results for this | | (AST,ALT,BILI | e | | | procedure are in the | | TOTAL,BILI | | | | results section. | | DIRECT,ALK | | | | | | PHOS,ALB,PROT TOTAL) | | | | | + +--------+ + + + | FERRITIN | Routin | 07/07/2019 | | Results for this | | | e | | | procedure are in the | | | | | | results section. | + +--------+ + + + documented in this encounter Results CBC, WITH DIFFERENTIAL (07/07/2019) + + + + + + | Component | Value | Ref Range | Performed | Pathologist | | | | | At | Signature | + + + + + + | WHITE CELL | 6.3 | 4.5 - 11.0 K/cu | NON [facility] | | | COUNT | | mm | LAB | | + + + + + + | RED CELL | 2.95 | 4.3 - 5.7 M/cu | NON [facility] | | | COUNT | | mm | LAB | | + + + + + + | HEMOGLOBIN | 11.2 (A) | 13.5 - 17.5 | NON [facility] | | | | | g/dL | LAB | | + + + + + + | HEMATOCRIT | 30.9 | 41 - 50 % | NON [facility] | | | | | | LAB | | + + + + + + | MCV | 105.8 | 81 - 99 fL | NON [facility] | | | | | | LAB | | + + + + + + | MCH | 38 | 27 - 33 pg | NON [facility] | | | | | | LAB | | + + + + + + | MCHC | 36 | 30 - 36 g/dL | NON [facility] | | | | | | LAB | | + + + + + + | PLATELET | 57 | 140 - 440 K/cu | NON [facility] | | | COUNT | | mm | LAB | | + + + + + + | NEUTROPHIL | 77.8 | 39 - 80 % | NON [facility] | | | % | | | LAB | | + + + + + + | LYMPHOCYTE | 13.7 | 24 - 44 % | NON [facility] | | | % | | | LAB | | + + + + + + | MONOCYTE % | 6.2 | 0 - 12 % | NON [facility] | | | | | | LAB | | + + + + + + | EOS % | 1.6 | 0 - 6 % | NON [facility] | | | | | | LAB | | + + + + + + | BASO % | 0.6 | 0 - 2 % | NON [facility] | | | | | | LAB | | + + + + + + | RDW | 12.5 | 10.5 - 15.0 % | NON [facility] | | | | | | LAB | | + + + + + + + + | Specimen | + + | Blood - Blood | | (substance) | + + + +---------+ + + | Performing | Address | City/State/Zipcode | Phone Number | | Organization | | | | + +---------+ + + | NON [facility] | | | | + +---------+ + + FERRITIN (07/07/2019) + +-------+ + + + | Component | Value | Ref Range | Performed | Pathologist | | | | | At | Signature | + +-------+ + + + | FERRITIN | 4,434 | 30 - 400 ng/mL | [facility] | | | | | | LAB | | + +-------+ + + + + + | Specimen | + + | Blood - Blood | | (substance) | + + + +---------+ + + | Performing | Address | City/State/Zipcode | Phone Number | | Organization | | | | + +---------+ + + | NON [facility] | | | | + +---------+ + + LIVER SET (AST,ALT,BILI TOTAL,BILI DIRECT,ALK PHOS,ALB,PROT TOTAL) (07/07/2019) + +-------+ + + + | Component | Value | Ref Range | Performed | Pathologist | | | | | At | Signature | + +-------+ + + + | BILIRUBIN | 12.8 | 0.0 - 1.2 | NON [facility] | | | TOTAL | | Transcutaneous | LAB | | | | | Bilirubinometer | | | + +-------+ + + + | ALK PHOS | 146 | 31 - 120 U/L | NON [facility] | | | | | | LAB | | + +-------+ + + + | TOTAL | 7.3 | 6.0 - 8.3 g/dL | NON [facility] | | | PROTEIN, | | | LAB | | | PLASMA | | | | | | (LAB) | | | | | + +-------+ + + + | BILIRUBIN | 4.2 | 0 - 0.3 mg/dL | NON [facility] | | | DIRECT | | | LAB | | + +-------+ + + + | ALBUMIN, | 3.1 | 3.5 - 5.0 g/dL | NON [facility] | | | PLASMA | | | LAB | | | (LAB) | | | | | + +-------+ + + + | AST(SGOT) | 52 | 13 - 39 U/L | NON [facility] | | | | | | LAB | | + +-------+ + + + | ALT (SGPT) | 32 | 7 - 52 U/L | NON [facility] | | | | | | LAB | | + +-------+ + + + + + | Specimen | + + | Blood - Blood | | (substance) | + + + +---------+ + + | Performing | Address | City/State/Zipcode | Phone Number | | Organization | | | | + +---------+ + + | NON [facility] | | | | + +---------+ + + documented in this encounter Visit Diagnoses Not on filedocumented in this encounter"
--- OUTSIDE RECORDS SUMMARY | ~2020-07-29 | XMS | Encounter Summary ---
Demographics + + + | Address | [address] | | | [place] [address] | + + + | Home Phone [...] [place] | | | | | [address] | | + + + + + Care Team Providers + +------+ + | Care Client Service Professional Name | Role | Phone | [...] | | cirrhosis of | [address] | [facility] | | | | | liver with | [facility] | for Health | | | | | ascites | Rd | and Healing, | | | | | (HCC) | [place], [place] | Building [address], | | | | | Procedures | [address] | 1st Floor | | | | | PHYSICAL | Phone: | [place], [place] | | | | | THERAPY | [phone] | [address] | | | | | REFERRAL | | Phone: | | | | | | | [phone] | | | | | | | Fax: | | | | | | | [phone] | +--------+--------+ + + + + Encounter Details +--------+---------+ + + + | Date | Type | Department | Care Team | Description | +--------+---------+ + + + | 09/03/ | Office | Rehabilitation | Dennys Hinson, PT | Alcoholic cirrhosis | | 2019 | Visit | Services at [facility] | [address] | of liver with | | | | [address] | [address] [place], | ascites (HCC) | | | | [facility] | [place] [address] | (Primary Dx); Leg | | | | and Healing, | [phone] | edema; Difficulty | | | | Building [address] | | walking | | | | [place], [place] | | | | | | [address] | | | | | | [phone] | | | +--------+---------+ + + + [...] encounter Progress Notes Dennys Hinson, PT - 09/03/2019 9:15 AM PST Insurance: Payor: [facility] [place] / Plan: [facility] [place] / Product Type: Medicaid / Non-Medicare [facility] PHYSICAL THERAPY EVALUATION Past Medical History: [...] mellitus, Disp: 15 mL, Rfl: 1 Insulin [place] (Disposable) (COMFORT EZ PEN NEEDLES) 31 gauge [...] treatment: Dialysis, post liver transplant care SUBJECTIVE: 09/03/2019 History of Presenting Problems: Donell is a [...] months. Walking in home, outdoors-yesterday went to [place] for the day did a little walking. [...] sit to stand Onset date: 08/16/19 Intensity: 12/28 none currently sitting, but then notes pain [...] friends involved with rehabilita tion therapy: sister OBJECTIVE: Observation/Posture: slouched posture. Leg swelling, feet up to knees Range Of Motion: UE WFL Ankle Strength: [...] male 2178' Defer to next visit. Treatment: Education: Rehabilitation diagnosis and plan of residential program: Exercise Date given Ankle pumps in sitting 10x 3x day 09/03/2019 LAQ 10x 3x day 09/03/[address] 10x 3x day 09/03/2019 Mini squat 10x 3x day 09/03/2019 ASSESSMENT: Pt presents with post Liver transplant with ongoing Dialysis. Swelling of both legs up to pelvic region affecting his gait and transfer mobility. UE basic ADL's he is able to perform. He has home support He has precautions no bending, lifting > 10 lbs or twisting, for 8-12 weeks.. He is gettin g up slowly and walking but not performing any specific home exercises. Unable to perform n arrow base support activities at this time, he appears safe with his abnormal gait pattern a t this time for short distances. FUNCTIONAL GOALS: due in 12 weeks Goal [...] plan: 6 MWT, progress leg strengthening exercises. See topics above to identify problem areas and goals Personal factors/Comorbidities: Musculoskeletal , Posture, ROM, Balance, Gait/Locomotion, Transfers/Transitions, Sleep complications and Edema Communication: No noted deficits, Psych osocial: Dependent on others for transportation, High 3+ Body structures & functions, Activity limitations, participation restrictions: Musculoskele hillary , Posture, ROM, Balance, Gait/Locomotion, Transfers/Transitions and Edema Family home li fe, Community, Social, Self care grooming and Transportation limitations Moderate - 3 or mor e Stability of condition: Post op status, complicated by lower body swelling. Moderate - Evol ving Clinical decision making: Moderate level of skill to determine plan of care and implement joyce betty Moderate - Moderate complexity Complexity: Moderate - 6[address] The patient requires services that can be safely and effectively performed only by a qualif ied therapist to address the aforementioned and highlighted problems and goals. Goals discussed and agreed upon with patient and/or family. Individual cultural and social needs addressed. Rehab Potential: Good, if Donell carries through with home exercise program. This note is to serve as the discharge summary if the patient fails to attend further Physi julia Therapy appointments or contact the therapist regarding any change in their status. [facility] Scheduled Appointment time: 9:15 AM The patient was seen for a total of 45 minutes of treatment time. 45 minutes was in direct contact care as described above and on completed flow sheets. Treatment Interventions duration in minutes: Procedure:Physical Therapy Evaluation and Ther apeutic Exercise 15 min Authorization information for first visit and progress reports Procedure Codes: Therapeutic Exercise 64598 and Gait Training 58462 Minutes per session: 45 Total number of [...] walking Next progress report 11/02/2019 Insurance: Payor: [facility] [place] / Plan: [facility] [place] / Product Type: Medicaid / Number visits authorized: 1 Number visits used: 1 Outcome Measure 09/03/2019 Activity 1 (3 point [...] Rd | | | | | | [place], [place] | | | | | | [address] | | | | | | [phone] | | | | | | | | +--------+ + + + + | 09/27/ | Telephone-S | Liver Transplant | Vimal Crowe MD | | | 2019 | [place] | | [address] | | | | | | [address], | | | | | | [place] [address] | | | | | | [phone] | | | | | | | | +--------+ + + + + | 10/03/ | Appointment | Cardiology | | | | 2019 | | | | | +--------+ + + + + | 10/03/ | Office | Cardiology | Cyril Samuel | | | 2019 | Visit | | MD Patricia [address] [facility] | | | | | | [address] | | | | | | [place], [place] | | | | | | [address] | | | | | | [phone] | | | | | | | | +--------+ + + + + documented as of this encounter Procedures + +--------+ + + + | Procedure Name | Priori | Date/Time | Associated Diagnosis | Comments | | | ty | | | | + +--------+ + + + | MI THERAPEUTIC | Routin | 09/03/2019 | Alcoholic | | | EXERCISES | e | 11:13 AM | cirrhosis of liver | | | | | PST | with ascites (HCC) | | | | | | Leg edema | | | | | | Difficulty walking | | + +--------+ + + + documented in this encounter Visit Diagnoses + + | Diagnosis | + + | Alcoholic cirrhosis of liver with ascites (HCC) - Primary Alcoholic cirrhosis of | | liver | + + | Leg edema Edema | + + | Difficulty walking Difficulty in walking | + + documented in this encounter
--- OUTSIDE RECORDS SUMMARY | ~2020-07-29 | XMS | Encounter Summary ---
Demographics + + + | Address | [address] | | | [place] [address] | + + + | Home Phone | | + + + | Preferred Language | Unknown | + + + | Marital Status | Single | + + + | Jewish Affiliation | Unknown | + + + | Race | White | + + + | Ethnic Group | Not or | + + + Author + + + | Author | [facility] | | | and [place] | + + + | Organization | [facility] | | | and [place] [...] Team Providers + +------+ + | Care Gasoline Truck Crane Operator Name | Role | Phone | + +------+ + | Sharon David MD | PCP | | + +------+ + Encounter Details +--------+ + + + + | Date | Type | Department | Care Team | Description | +--------+ + + + + | 07/24/ | Orders Only | [facility] | Aylin Jiménez, | | | 2018 | | CONVERSION DEP [address] | | | | [address] | [place] [address] | | | | | [place], [place] | [phone] | | | | | [address] | | | | | | [phone] | | | +--------+ + + + [...] [address] | | | | | | [place] [address] | | | | | | [phone] | | | | | | | | +--------+---------+ + + + documented as of this encounter Visit Diagnoses Not on filedocumented in this encounter"
--- OUTSIDE RECORDS SUMMARY | ~2020-07-29 | XMS | Encounter Summary ---
Demographics + + + | Address | [address] | | | [place] [address] | + + + | Home Phone [...] [place] | | | | | [address] | | + + + + + Care Team Providers + +------+ + | Care Refrigeration Lead Name | Role | Phone | + +------+ + | Sharon David MD | PCP | | + +------+ + Reason for Visit + +--------+ + | Reason | Onset | Comments | | | Date | | + +--------+ + | Medication | 09/06/ | | | management | 2019 | | + +--------+ + Encounter Details +--------+ + + + + | Date | Type | Department | Care Team | Description | +--------+ + + + + | 09/06/ | Telephone | Clinical | Delmy Pollock, | Medication | | 2019 | | Transplant Services | RN [address] | [facility] hospital | | | | [address] | | | | | [place], | [place], [place] | | | | | [place] [address] | [address] | | | | | [phone] | | | +--------+ + + + [...] Telephone Encounter - Delmy Pollock RN - 09/06/2019 10:03 AM PST09/05/19Saturday Oncal l 08:30 Doreen sister called to report that patient's pharmacy said the insurance has denied the sle eping medication seroquel and pharmacist said to call and talk to us. I advised that we cou ld contact the insurance and try to appeal this on Saturday and Doreen was agreeable to this. She did say that patient does need something for sleep. All questions answered. Favian in this e ncounter Plan of Treatment [...] Rd | | | | | | [place], [place] | | | | | | [address] | | | | | | [phone] | | | | | | | | +--------+ + + + + | 09/27/ | Telephone-S | Liver Transplant | Vimal Crowe MD | | | 2019 | cheduled | | [address] | | | | | | [address] | | | | | | [place] [address] | | | | | | [phone] | | | | | | | [...] Rd | | | | | | [place] | | | | | | [address] | | | | | | [phone] | | | | | | | | +--------+ + + + + documented as of this encounter Visit Diagnoses Not on filedocumented in this encounter"
--- OUTSIDE RECORDS SUMMARY | ~2020-07-29 | XMS | Encounter Summary ---
Demographics + + + | Address | [address] | | | [place] [address] | + + + | Home Phone [...] [place] | | | | | [address] | | + + + + + Care Team Providers + +------+ + | Care Chemotherapist Name | Role | Phone | + +------+ + | Sharon David MD | PCP | | + +------+ + Encounter Details +--------+ + + + + | Date | Type | Department | Care Team | Description | +--------+ + + + + | 06/18/ | Pharmacy | Pharmacy @ [facility] | | | | 2019 | Visit | [address] | | | | | | [address] Mailcode: | | | | | | [facility] | | | | | | and Healing, | | | | | | Building 2 | | | | | | [place], [place] | | | | | | [address] | | | +--------+ + + + [...] Rd | | | | | | [place], [place] | | | | | | [address] | | | | | | [phone] | | | | | | | | +--------+ + + + + | 09/27/ | Telephone-S | Liver Transplant | Vimal Crowe MD | | | 2019 | cheduled | | [address] | | | | | | [facility] [address] [place], | | | | | | [place] [address] | | | | | | [phone] | | | | | | | [...] | | | | | | [place] | | | | | | [address] | | | | | | [phone] | | | | | | | | +--------+ + + + + documented as of this encounter Visit Diagnoses Not on filedocumented in this encounter"
--- OUTSIDE RECORDS SUMMARY | ~2020-07-29 | XMS | Encounter Summary ---
Demographics + + + | Address | [address] | | | [place] [address] | + + + | Home Phone [...] | | | | | [place] | | | | | [address] | | + + + + + Care Team Providers + +------+ + | Care Surgical Appliances Salesperson Name | Role | Phone | + +------+ + | Sharon David MD | PCP | | + +------+ + Reason for Visit + +--------+ + | Reason | Onset | Comments | | | Date | | + +--------+ + | Appointment | 04/17/ | | | | 2019 | | + +--------+ + Encounter Details +--------+ + + + + | Date | Type | Department | Care Team | Description | +--------+ + + + + | 04/17/ | Telephone | Stress | Cecille Bustos RN | Appointment | | 2019 | | Echocardiography | [address] | | | | | [address] | [address] [place], | | | | | Mailcode: CH9A | [place] [address] | | | | | [facility] | | | | | | and Healing, | | | | | | Building [address] | | | | | | [place], [place] | | | | | | [address] | | | | | | [phone] | | | +--------+ + + + [...] encounter Miscellaneous Notes Telephone Encounter - Cecille Bustos RN - 04/17/2019 2:18 PM PDTPt contacted via telephone regarding upcoming cardiac stress appointment. Time, date, location, test overview, and t aking home medications as prescribed reviewed on pt's voicemail. documented in this enco unter Plan of Treatment +--------+ + + + + | Date | Type | Specialty | Care Team | Description | +--------+ + + + + | 08/08/ | Telephone-S | Nephrology | Angélica Chao, | | | 2019 | [place] | | [address] | | | | | | [address] | | | | | | [place], [place] | | | | | | [address] | | | | | | [phone] | | | | | | | | +--------+ + + + + | 09/27/ | Telephone-S | Liver Transplant | Vimal Crowe MD | | | 2019 | [place] | | [address] | | | | | | [address], | | | | | | [place] [address] | | | | | | [phone] | | | | | | | [...] [address] | | | | | | [place] | | | | | | [address] | | | | | | [phone] | | | | | | | | +--------+ + + + + documented as of this encounter Visit Diagnoses Not on filedocumented in this encounter"
--- OUTSIDE RECORDS SUMMARY | ~2020-07-29 | XMS | Encounter Summary ---
Demographics + + + | Address | [address] | | | [place] [address] | + + + | Home Phone [...] [place] | | | | | [address] | | + + + + + Care Team Providers + +------+ + | Care Flexographic Press Plate Setter Name | Role | Phone | + +------+ + | Sharon David MD | PCP | | + +------+ + Reason for Visit + +--------+ + | Reason | Onset | Comments | | | Date | | + +--------+ + | Liver Transplant | 05/24/ | prograf dose and prograf target 4-6 | | Follow Up | 2020 | | + +--------+ + Encounter Details +--------+ + + + + | Date | Type | Department | Care Team | Description | +--------+ + + + + | 05/24/ | Documentati | Clinical | Vimal Crowe MD | Liver Transplant | | 2020 | on | Transplant Services | [address] | Follow Up (prograf | | | | [address] | [address] [place], | dose and prograf | | | | [address] [place], | [place] [address] | target 4-6 ) | | | | [place] [address] | [phone] | | | | | [phone] | | | +--------+ + + + [...] Telephone Encounter - Judie Mota RN - 05/24/2020 12:38 PM PDTFormatting of this not e might be different from the original. MD Judie Chahal RN FK trough 4-6, (closer to 4 if labs ok given renal insufficiency, however given last FK was was 3, lets go up on FK to 3/2 from 11/22 . Repeat labs in a week. Called spoke with Donell he will make the needed dose changes. documented in this encounter Plan of Treatment +--------+ + + + + | Date | Type | Specialty | Care Team | Description | +--------+ + + + + | 08/08/ | Telephone-S | Nephrology | Angélica Chao, | | 2019 | [place] | | [address] | | | | | | [address] | | | | | | [place], [place] | | | | | | [address] | | | | | | [phone] | | | | | | | | +--------+ + + + + | 09/27/ | Telephone-S | Liver Transplant | Vimal Crowe MD | | | 2019 | [place] | | [address] | | | | | | [facility] [address] [place], | | | | | | [place] [address] | | | | | | [phone] | | | | | | | [...] [address] | | | | | | [place] | | | | | | [address] | | | | | | [phone] | | | | | | | | +--------+ + + + + documented as of this encounter Visit Diagnoses Not on filedocumented in this encounter"
--- OUTSIDE RECORDS SUMMARY | ~2020-07-29 | XMS | Encounter Summary ---
Demographics + + + | Address | [address] | | | [place] [address] | + + + | Home Phone [...] [place] | | | | | [address] | | + + + + + Care Team Providers + +------+ + | Care Paper Cone Grader Name | Role | Phone | + +------+ + | Sharon David MD | PCP | | + +------+ + Encounter Details +--------+ + + + + | Date | Type | Department | Care Team | Description | +--------+ + + + + | 05/19/ | Pharmacy | [facility] | | | | 2020 | Visit | [address] | | | | | | [address] | | | | | | [place] [address] | | | | | | [phone] | | | +--------+ + + + [...] Rd | | | | | | [place], [place] | | | | | | [address] | | | | | | [phone] | | | | | | | | +--------+ + + + + | 09/27/ | Telephone-S | Liver Transplant | Vimal Crowe MD | | | 2019 | cheduled | | [address] | | | | | | [address], | | | | | | [place] [address] | | | | | | [phone] | | | | | | | [...] Rd | | | | | | [place] | | | | | | [address] | | | | | | [phone] | | | | | | | | +--------+ + + + + documented as of this encounter Visit Diagnoses Not on filedocumented in this encounter"
--- OUTSIDE RECORDS SUMMARY | ~2020-07-29 | XMS | Encounter Summary ---
Demographics + + + | Address | [address] | | | [place] [address] | + + + | Home Phone [...] [place] | | | | | [address] | | + + + + + Care Team Providers + +------+ + | Care Tallow Refiner Name | Role | Phone | + +------+ + | Sharon David MD | PCP | | + +------+ + Encounter Details +--------+ + + + + | Date | Type | Department | Care Team | Description | +--------+ + + + + | 07/26/ | Abstract | Clinical | Vimal Crowe MD | | | 2020 | | Transplant Services | [address] | | | | | [address] | [address] [place], | | | | | [place], | [place] [address] | | | | | [place] [address] | [phone] | | | | | [phone] | | | +--------+ + + + [...] Rd | | | | | | [place], [place] | | | | | | [address] | | | | | | [phone] | | | | | | | | +--------+ + + + + | 09/27/ | Telephone-S | Liver Transplant | Vimal Crowe MD | | | 2019 | [place] | | [address] | | | | | | [facility] [address] [place], | | | | | | [place] [address] | | | | | | [phone] | | | | | | | | +--------+ + + + + | 10/03/ | Appointment | Cardiology | | | | 2019 | | | | | +--------+ + + + + | 10/03/ | Office | Cardiology | Cyril Samuel | | | 2019 | Visit | Darren Gomez MD [address] | | | | | | [address] | | | | | | [place], [place] | | | | | | [address] | | | | | | [phone] | | | | | | | [...] Results LIVER TRANSPLANT POST PANEL (EXT RESULTS) (07/25/2020 11:49 AM PDT) + +-------+ + + + [...] + + | [facility] - | [address] | [place], [place] | [phone] | | [place] | | | | + + + + + documented in this encounter Visit Diagnoses Not on filedocumented in this encounter"
--- OUTSIDE RECORDS SUMMARY | ~2020-07-29 | XMS | Encounter Summary ---
Demographics + + + | Address | [address] | | | [place] [address] | + + + | Home Phone [...] [place] | | | | | [address] | | + + + + + Care Team Providers + +------+ + | Care Miner Name | Role | Phone | + +------+ + | Sharon David MD | PCP | | + +------+ + Encounter Details +--------+ + + + + | Date | Type | Department | Care Team | Description | +--------+ + + + + | 09/25/ | Pharmacy | Specialty Pharmacy | | | | 2019 | Visit | Services [address] | | | | | [address] | | | | | | [place], [place] | | | | | | [address] | | | | | | [phone] | | | +--------+ + + + [...] | | 2019 | [place] | | [address] | | | | | | [address] | | | | | | [place], [place] | | | | | | [address] | | | | | | [phone] | | | | | | | | +--------+ + + + + | 09/27/ | Telephone-S | Liver Transplant | Vimal Crowe MD | | | 2019 | cheduled | | [address] | | | | | | [facility] [address], | | | | | | [place] [address] | | | | | | [phone] | | | | | | | | +--------+ + + + + | 10/03/ | Appointment | Cardiology | | | | 2019 | | | | | +--------+ + + + + | 10/03/ | Office | Cardiology | Cyril Samuel | | | 2019 | Visit | | MD Patricia [address] | | | | | | [address] | | | | | | [place], [place] | | | | | | [address] | | | | | | [phone] | | | | | | | | +--------+ + + + + documented as of this encounter Visit Diagnoses Not on filedocumented in this encounter"
--- OUTSIDE RECORDS SUMMARY | ~2020-07-29 | XMS | Encounter Summary ---
Demographics + + + | Address | [address] | | | [place] [address] | + + + | Home Phone [...] [place] | | | | | [address] | | + + + + + Care Team Providers + +------+ + | Care Graduate Student Name | Role | Phone | + +------+ + | Sharon David MD | PCP | | + +------+ + Reason for Visit + +--------+ + | Reason | Onset | Comments | | | Date | | + +--------+ + | Lab Draw | 06/16/ | | | | 2018 | | [...] | [address] | [address] [place], | | | | | [place] [address], | [place] [address] | | | | | [place] [address] | [phone] | | | | | [phone] | | | +--------+ + + + [...] 2019 | cheduled | | [address] [facility] | | | | | | [address] | | | | | | [place], [place] | | | | | | [address] | | | | | | [phone] | | | | | | | | +--------+ + + + + | 09/27/ | Telephone-S | Liver Transplant | Vimal Crowe MD | | | 2019 | cheduled | | [address] | | | | | | [facility] [address] [place], | | | | | | [place] [address] | | | | | | [phone] | | | | | | | | +--------+ + + + + | 10/03/ | Appointment | Cardiology | | | | 2019 | | | | | +--------+ + + + + | 10/03/ | Office | Cardiology | Cyril Samuel | | | 2019 | Visit | | MD Patricia [address] [facility] | | | | | | [address] | | | | | | [place], [place] | | | | | | [address] | | | | | | [phone] | | | | | | | | +--------+ + + + + documented as of this encounter Procedures + +--------+ + + + | Procedure Name | Priori | Date/Time | Associated Diagnosis | Comments | | | ty | | | | + +--------+ + + + | LIVER PRE-TRANSPLANT | Routin | 06/09/2019 | | Results for this | | EXTERNAL MELD LAB | e | | | procedure are in the | | RESULTS PANEL (FOR | | | | results section. | | EXTERNAL RESULT | | | | | | ENTRY ONLY) | | | | | + +--------+ + + + | LIVER PRE-TRANSPLANT | Routin | 06/02/2019 | | Results for this | | EXTERNAL MELD LAB | e | | | procedure are in the | | RESULTS PANEL (FOR | | | | results section. | | EXTERNAL RESULT | | | | | | ENTRY ONLY) | | | | | + +--------+ + + + | LIVER PRE-TRANSPLANT | Routin | 06/02/2019 | | Results for this | | EXTERNAL MELD LAB | e | | | procedure are in the | | RESULTS PANEL (FOR | | | | results section. | | EXTERNAL RESULT | | | | | | ENTRY ONLY) | | | | | + +--------+ + + + | LIVER PRE-TRANSPLANT | Routin | 05/26/2019 | | Results for this | | [...] | + + + + + | [facility] | [address] | [place], [place] | [phone] | | | | [address] | | + + + + + LIVER PRE-TRANSPLANT EXTERNAL MELD LAB RESULTS PANEL (FOR EXTERNAL RESULT ENTRY ONLY) (05/21) + +-------+ + + + | Component [...] | + + + + + | [facility] | [address] | [place], [place] | [phone] | | | | [address] | | + + + + + LIVER PRE-TRANSPLANT EXTERNAL MELD LAB RESULTS PANEL (FOR EXTERNAL RESULT ENTRY ONLY) (05/21) + +-------+ + + + | Component | Value | Ref Range | Performed | Pathologist | | | | | At | Signature | + +-------+ + + + | NICOTINE, | <2 | | [facility] | | | URINE | | | HEALTH | | | | | | LABORATORY | | | | | | - [facility] | | + +-------+ + + + | COTININE, | <5 | | [facility] | | | URINE | | | HEALTH | | | | | | LABORATORY | | | | | | - [facility] | | + +-------+ + + + | NORNICOTINE | <2 | | [facility] | | | , URINE | | | HEALTH | | | | | | LABORATORY | | | | | | - [facility] | | + +-------+ + + + | ANABASINE, | <3 | | [facility] | | | URINE | | | HEALTH | | | | | | LABORATORY | | | | | | - [facility] | | + +-------+ + + + + + | Specimen | + + | | + + + + + | Narrative | Performed At | + + + | | | + + + + + + + + | Performing | Address | City/State/Zipcode | Phone Number | | Organization | | | | + + + + + | [facility] | [address] | [place] [address] | [phone] | | LABORATORY - | | | | | [facility] | | | | + + + + + LIVER PRE-TRANSPLANT EXTERNAL MELD LAB RESULTS PANEL (FOR EXTERNAL RESULT ENTRY ONLY) (03/2019) + +-------+ + + + | Component [...] | + + + + + | [facility] | [address] | [place], [place] | [phone] | | | | [address] | | + + + + + documented in this encounter Visit Diagnoses Not on filedocumented in this encounter"
--- OUTSIDE RECORDS SUMMARY | ~2020-07-29 | XMS | Encounter Summary ---
Demographics + + + | Address | [address] | | | [place] [address] | + + + | Home Phone [...] [place] | | | | | [address] | | + + + + + Care Team Providers + +------+ + | Care Commercial Green Retrofit Architect Name | Role | Phone | + +------+ + | Sharon David MD | PCP | | + +------+ + Reason for Visit +--------+--------+ + | Reason | Onset | Comments | | | Date | | +--------+--------+ + | Other | 07/29/ | Hyperkalemia results | | | 2020 | | +--------+--------+ + Encounter Details +--------+ + + + + | Date | Type | Department | Care Team | Description | +--------+ + + + + | 07/29/ | Telephone | Cardiology Cardiac | Cyril Samuel | Other (Hyperkalemia | | 2020 | | Transplant at [facility] | MD Patricia [address] [facility] | results) | | | | [address] | [address] | | | | | [facility] | [place], [place] | | | | | and [place], | [address] | | | | | [facility] | [phone] | | | | | [place], [place] | | | | | | [address] | | | | | | [phone] | | | +--------+ + + + [...] this encounter Miscellaneous Notes Telephone Encounter - Jl Isaac RN - 07/29/2020 9:46 AM PDTPhone call to pt: -pt did received message re reporting to local ED for hyperkalemia -pt confirmed he was en route to local ED Jl Johnson RN elephone En counter - Jl Isaac RN - 07/29/2020 8:53 AM PDT-Pt called and MyChart sent requesting pt go to local ER for treatment of hyperkalemia (per providers instructions) -Call back requested to ensure the message was received -RN will attempt additional calls if necessary Jl Johnson RN elephone En counter - Jl Isaac RN - 07/29/2020 8:52 AM PDT----- Message from Cyril Samuel MD sent at 07/28/2020 5:35 PM PDT ----- CHF nurses, could you ask Mr Duran to present to local ER for treatment of acute on chronic hyperkalemia? Also alerting liver txp and renal team, who manage patient longitudinally. documented in this enco unter Plan of Treatment +--------+ + + + + | Date | Type | Specialty | Care Team | Description | +--------+ + + + + | 08/08/ | Telephone-S | Nephrology | Angélica Chao, | | 2019 | [place] | | [address] [facility] | | | | | | [facility] | | | | | | [place], [place] | | | | | | [address] | | | | | | [phone] | | | | | | | | +--------+ + + + + | 09/27/ | Telephone-S | Liver Transplant | Vimal Crowe MD | | 2019 | cheduled | | [address] | | | | | | [place], | | | | | | [place] [address] | | | | | | [phone] | | | | | | | [...] [place] | | | | | | [address] | | | | | | [phone] | | | | | | | | +--------+ + + + + documented as of this encounter Visit Diagnoses Not on filedocumented in this encounter"
--- OUTSIDE RECORDS SUMMARY | ~2020-07-29 | XMS | Encounter Summary ---
Demographics + + + | Address | [address] | | | [place] [address] | + + + | Home Phone [...] [place] | | | | | [address] | | + + + + + Care Team Providers + +------+ + | Care Sales And Service Associate Name | Role | Phone | + +------+ + | Sharon David MD | PCP | | + +------+ + Encounter Details +--------+ + + + + | Date | Type | Department | Care Team | Description | +--------+ + + + + | 05/03/ | Abstract | Clinical | Vimal Crowe MD | | | 2019 | | Transplant Services | [address] | | | | | [address] | [address] [place], | | | | | [place], | [place] [address] | | | | | [place] [address] | [phone] | | | | | [phone] | | | +--------+ + + + [...] Rd | | | | | | [place], [place] | | | | | | [address] | | | | | | [phone] | | | | | | | | +--------+ + + + + | 09/27/ | Telephone-S | Liver Transplant | Vimal Crowe MD | | | 2019 | [place] | | [address] | | | | | | [facility] [address] [place], | | | | | | [place] [address] | | | | | | [phone] | | | | | | | | +--------+ + + + + | 10/03/ | Appointment | Cardiology | | | | 2019 | | | | | +--------+ + + + + | 10/03/ | Office | Cardiology | Cyril Samuel | | | 2019 | Visit | Darren Gomez MD [address] | | | | | | [address] | | | | | | [place], [place] | | | | | | [address] | | | | | | [phone] | | | | | | | [...] Results LIVER TRANSPLANT POST PANEL (EXT RESULTS) (05/02/2020 6:48 AM PDT) + + + + + [...] + + | POTASSIUM, | 4.0 | mmol/L | [facility] | | | [...] + + + + | GLUCOSE, | 315 (A) | 65 - 110 mg/dL | [...] + + + | CREATININE | 1.83 | mg/dL | [facility] | | | [...] + + | TOTAL | 6.6 | g/dL | [facility] | | | PROTEIN, | | | LAB - | | | PLASMA | | | [place] | | | (LAB) | | | | | + + + + + + | ALBUMIN, | 4.4 | g/dL | [facility] | | | [...] + + + | ALK PHOS | 86 | U/L | [facility] | | | [...] + + + | URIC ACID, | 5.4 | mg/dL | [facility] | | | [...] + + + + | HEMATOCRIT | 34.5 | % | [facility] | | | [...] + + + | PLATELET | 107 | K/cu mm | [facility] | | | COUNT | | | LAB - | | | | | | [place] | | + + + + + + | TACROLIMUS | 3.6 | ng/mL | [facility] | | | ([address]) | | | LAB - | | | | | | [place] | | + + + + + [...] [address] | [place] | [phone] | | [place] | | | | + + + + + documented in this encounter Visit Diagnoses Not on filedocumented in this encounter"
--- OUTSIDE RECORDS SUMMARY | ~2020-07-29 | XMS | Encounter Summary ---
Demographics + + + | Address | [address] | | | [place] [address] | + + + | Home Phone [...] [place] | | | | | [address] | | + + + + + Care Team Providers + +------+ + | Care Radar Mechanic Name | Role | Phone | + +------+ + | Sharon David MD | PCP | | + +------+ + Encounter Details +--------+ + + + + | Date | Type | Department | Care Team | Description | +--------+ + + + + | 09/14/ | Bessemer Converter Operator | Clinical | Cecille Brunner, RN | Liver replaced by | | 2019 | | Transplant Services | [address] | transplant (HCC) | | | | [address] | [place] | (Primary Dx) | | | | [place], | [place] [address] | | | | | [place] [address] | | | | | | [phone] | | | +--------+ + + + [...] | | | | | | [place], [place] | | | | | | [address] | | | | | | [phone] | | | | | | | | +--------+ + + + + | 09/27/ | Telephone-S | Liver Transplant | Vimal Crowe MD | | | 2019 | cheduled | | [address] | | | | | | [address], | | | | | | [place] [address] | | | | | | [phone] | | | | | | | | +--------+ + + + + | 10/03/ | Appointment | Cardiology | | | | 2019 | | | | | +--------+ + + + + | 10/03/ | Office | Cardiology | Cyril Samule | | | 2019 | Visit | | MD Patricia [address] | | | | | | [address] | | | | | | [place], [place] | | | | | | [address] | | | | | | [phone] | | | | | | | | +--------+ + + + + documented as of this encounter Results HEPATITIS B SURFACE AG W/REFLEX CONFIRMATION IF INDETERMINATE RESULTS (09/14/2019 8:15 AM PST) + + + [...] | + + + + + | [facility] | [address] | [place] [address] | | | SERVICES, CORE | [address] | | | + + + + + HCV/HIV/HBV, DUARTE - TRANSPLANT ONLY (09/14/2019 8:15 AM PST) + + + + + + | Component | Value | Ref Range | Performed | Pathologist | | | | | At | Signature | + + + + + + | HCV DUATRE | Negative | Negative | [facility] | [...] | Testing | [facility] | | performed by:[facility] [address] [address], | REFERENCE LAB | | [place] [address] | | |[place] [address] | | + + + + + + + + | Performing | Address | City/State/Zipcode | Phone Number | | Organization | | | | + + + + + | [facility] | | | | + + + + + | [facility] | see below | | | + + + + + ETHYL GLUCURONIDE QUANT, URINE (09/14/2019 8:15 AM PST) + + + [...] | | | | | determined by [employer] | | | | | | Laboratories. See | | | | | | Compliance Statement B: | | | | | | [employer]Onova/CSPerformed | | | | | | by [employer],[address] | | | | | | [facility],[place] | | | | | | [address] | | | | | | [phone]. | | | | | | Harley [...] [facility] | [address] | [place], [place] | | | [facility] | | [address] | | + + + + + PHOSPHATIDYLETHANOL (PETH) (09/14/2019 8:15 AM PST) + + + + + + | Component | Value | Ref Range | Performed | Pathologist | | | | | At | Signature | + + + + + + | PHOSPHATIDY | NEGATIVEComment: | NEGATIVE ng/mL | [facility] | | | LETHANOL | Analyzed compound: PEth | | REG UNIV | | | (PETH) | 16:0/18:1.6-tctslzavr-9- | | PTH - [facility] | | | | nptban-nc-cbomqcu-3-phos | | | | | | phoethanol.Analysis [...] | | | | at: [facility] [address] | | | | | | [facility] [address] | | | | | | [place] [address] | | | | + + + + + + + + | Specimen | + + | Blood - Blood | | (substance) | + + + + + + + | Performing | Address | City/State/Zipcode | Phone Number | | Organization | | | | + + + + + | [facility] | [address] | [place], [place] | | | [facility] | | [id number] | | + + + + + documented in this encounter Visit Diagnoses + + | Diagnosis | + + | Liver replaced by transplant (HCC) - Primary Liver replaced by transplant | + + documented in this encounter
--- OUTSIDE RECORDS SUMMARY | ~2020-07-29 | XMS | Encounter Summary ---
Demographics + + + | Address | [address] | | | [place] [address] | + + + | Home Phone [...] [place] | | | | | [address] | | + + + + + Care Team Providers + +------+ + | Care Director Of Financial Reporting Name | Role | Phone | + +------+ + | Sharon David MD | PCP | | + +------+ + Encounter Details +--------+ + + + + | Date | Type | Department | Care Team | Description | +--------+ + + + + | 06/15/ | Pharmacy | [facility] | | | | 2020 | Visit | [address] | | | | | | [address] | | | | | | [place] [address] | | | | | | [phone] | | | +--------+ + + + [...] | 2019 | [place]on | | [address] | | | | | | [address] | | | | | | [place], [place] | | | | | | [address] | | | | | | [phone] | | | | | | | | +--------+ + + + + | 09/27/ | Telephone-S | Liver Transplant | Vimal Crowe MD | | | 2019 | cheduled | | [address] | | | | | | [address], | | | | | | [place] [address] | | | | | | [phone] | | | | | | | [...] Rd | | | | | | [place] | | | | | | [address] | | | | | | [phone] | | | | | | | | +--------+ + + + + documented as of this encounter Visit Diagnoses Not on filedocumented in this encounter"
--- OUTSIDE RECORDS SUMMARY | ~2020-07-29 | XMS | Encounter Summary ---
Demographics + + + | Address | [address] | | | [place] [address] | + + + | Home Phone [...] [place] | | | | | [address] | | + + + + + Care Team Providers + +------+ + | Care Bottle Feeder Name | Role | Phone | + +------+ + | Sharon David MD | PCP | | + +------+ + Reason for Visit + +--------+ + | Reason | Onset | Comments | | | Date | | + +--------+ + | Refill Request | 09/21/ | | | | 2019 | | + +--------+ + Encounter Details +--------+--------+ + + + | Date | Type | Department | Care Team | Description | +--------+--------+ + + + | 09/21/ | Refill | Clinical | Pattie Ignacio, | Refill Request | | 2019 | | Transplant Services | [facility] [address] | | | | | [address] | [address] | | | | | [place], | [place], [place] | | | | | [place] [address] | [address] | | | | | [phone] | [phone] | | | | | | | [...] Telephone Encounter - Judie Mota RN - 09/21/2019 9:54 AM PSTPotassium elevated 5.2 creatine 2.09 per Pattie Ignacio PA-C stop lasix and take two doses of kayexalate now repeat labs on . Called and spoke with Joanne she understands the instructions and will make the needed tierney es. documented in th is encounter Plan of [...] Rd | | | | | | [place], [place] | | | | | | [address] | | | | | | [phone] | | | | | | | | +--------+ + + + + | 09/27/ | Telephone-S | Liver Transplant | Vimal Crowe MD | | | 2019 | cheduled | | [address] | | | | | | [address], | | | | | | [place] [address] | | | | | | [phone] | | | | | | | [...] Rd | | | | | | [place] | | | | | | [address] | | | | | | [phone] | | | | | | | | +--------+ + + + + documented as of this encounter Visit Diagnoses Not on filedocumented in this encounter"
--- OUTSIDE RECORDS SUMMARY | ~2020-07-29 | XMS | Encounter Summary ---
Demographics + + + | Address | [address] | | | [place] [address] | + + + | Home Phone [...] [place] | | | | | [address] | | + + + + + Care Team Providers + +------+ + | Care Aquatic Biologist Name | Role | Phone | + +------+ + | Sharon David MD | PCP | | + +------+ + Encounter Details +--------+--------+ + + + | Date | Type | Department | Care Team | Description | +--------+--------+ + + + | 10/12/ | Intake | Transfer Center | | | | 2019 | | [address] | | | | | | [place], | | | | | | [place] [address] | | | +--------+--------+ + + + [...] Rd | | | | | | [place], [place] | | | | | | [address] | | | | | | [phone] | | | | | | | | +--------+ + + + + | 09/27/ | Telephone-S | Liver Transplant | Vimal Crowe MD | | | 2019 | cheduled | | [address] | | | | | | [address], | | | | | | [place] [address] | | | | | | [phone] | | | | | | | [...] Rd | | | | | | [place], [place] | | | | | | [address] | | | | | | [phone] | | | | | | | | +--------+ + + + + documented as of this encounter Visit Diagnoses Not on filedocumented in this encounter"
--- OUTSIDE RECORDS SUMMARY | ~2020-07-29 | XMS | Encounter Summary ---
Demographics + + + | Address | [address] | | | [place] [address] | + + + | Home Phone [...] [place] | | | | | [address] | | + + + + + Care Team Providers + +------+ + | Care Condominium Property Manager Name | Role | Phone | + +------+ + | Sharon David MD | PCP | | + +------+ + Encounter Details +--------+ + + + + | Date | Type | Department | Care Team | Description | +--------+ + + + + | 08/28/ | Building Rigger | Nephrology & | Cesario Carter, | | | 2019 | | [facility]pertension at [facility] | MD Pramod [address] | | | | | [address] | [facility] | | | | | Loop Physician's | Rd [place], [place] | | | | | [place], 3rd floor | [address] | | | | | [place], [place] | [phone] | | | | | [address] | | | | | | [phone] | | | +--------+ + + + [...] this encounter Miscellaneous Notes Telephone Encounter - Pramod Mccain MD - 08/28/2019 4:12 PM PSTFormatting of th is note might be different from the original. OUTPATIENT DIALYSIS ORDERS Name: Steffen Duran : 1965 Warehouse Foreman: DR. 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 Discharge diagnosis from hospitalization: Liver cirrhosis Access: TDC Right chest Dialyzer: _X__ F160 ___ F180 ___ F200 ___ REXEED 15 ___ REXEED 18S ___ REXEED 21 S ___ OPTIFLUX 170 ___ OPTIFLUX 190 ___ OTHER: Dialysate: K 3 Ca 2.5 Sodium: 138 mEq/L Bicarbonate: 32 MEq/L Last dialysis post weight from acute setting (kg): TBD Treatment duration: 4 hrs Blood flow: 350 ml/min Dialysate flow: 600 UF goal: 0-1 L Max UFR: 0.8 L/hr (if it is felt more is needed, please contact primary electric bath attendant to dis cuss) Blood pressure parameters: please call [facility] Nephrology ([phone]) if systolic blood pre ssure is less than 110 or greater than 160 at any time during or immediately following dialy sis treatment. Catheter care: please follow usual unit protocol for dialysis catheter care Allergies: Allergies Allergen Reactions Doxycycline Hives and Rash Outpatient Medication list as of discharge: No current facility-administered medications for this visit. Current Outpatient Medications Medication Sig acetaminophen 500 [...] osteoporosis prevention insulin lispro (Human) 100 unit/mL subcutaneous insulin pen Inject 1-16 Units under the skin (SUBC) four times daily (before each meal and at bedtime). Max dose = 56 units per day Indications: type 2 diabetes mellitus Insulin [place] (Disposable) (COMFORT EZ PEN NEEDLES) 31 gauge x 5/16" miscellaneous (m isc) needle Use as directed for 5 insulin injections per day. insulin NPH 100 unit/mL (3 mL) subcutaneous insulin pen Inject 17 Units under the skin (SUBC) once daily with breakfast AND 6 Units once daily at bedtime. Indications: type 2 diab etes mellitus. lancets (FREESTYLE LANCETS) 28 gauge miscellaneous (misc) misc Test blood sugar four ti mes daily (before each meal and at bedtime). Indications: type 2 diabetes mellitus metoprolol succinate 25 mg oral tablet extended release 24 hr Take 0.5 tablets by mouth once daily. Indications: high blood pressure multivitamin oral tablet Take 1 tablet by mouth once daily. Indications: Treatment To P revent Vitamin Deficiency mycophenolate 250 mg oral capsule Take 4 capsules by mouth two times daily. Indications : liver transplant rejection prevention omeprazole 20 mg oral capsule,delayed release(DR/EC) Take 1 capsule by mouth once daily . Indications: heartburn predniSONE 5 mg oral tablet Take 4 tablets by mouth once daily. Indications: liver cox splant rejection prevention senna-docusate (SENNA WITH DOCUSATE SODIUM) 8.6-50 mg oral tablet Take 1 tablet by mout h twice daily as needed. Indications: constipation tacrolimus 1 mg oral capsule Take 6 capsules by mouth two times daily. Indications: niels er transplant rejection prevention trimethoprim-sulfamethoxazole 80-400 mg oral tablet Take 1 tablet by mouth once daily. Indications: pneumonia prevention valGANciclovir 450 mg oral tablet Take 1 tablet by mouth once daily. Indications: viral infection prevention Facility-Administered Medications Ordered in Other Visits Medication Dose Route Frequency Provider Last Rate Last Dose acetaminophen (TYLENOL) tablet 500 mg 500 mg oral Q6H PRN Bailee Ken MD 500 m g at 08/21/19 1224 albumin human (BUMINATE, FLEXBUMIN) 5 % injection 25 g 25 g intravenous DAILY PRN Steve Ken MD amiodarone (CORDARONE) tablet 200 mg 200 mg oral DAILY Amy Singh MD 200 mg at 0757 aspirin tablet 325 mg 325 mg oral DAILY Bailee Ken MD 325 mg at 08/28/19 0757 bisacodyl (DULCOLAX) suppository 10 mg 10 mg rectal DAILY PRN Kathy [place] MD,MPH darbepoetin darius (ARANESP) injection 40 mcg 0.45 mcg/kg subcutaneous Q7D Pramod Carter MD 40 mcg at 08/27/19 1655 dextrose 50 % in water IV 25 mL 25 mL intravenous PRN Kathy [place] MD,MPH fluconazole (DIFLUCAN) tablet 400 mg 400 mg oral Once per day on Mon Bailee Ken MD 400 mg at 08/24/19 0827 glucagon (GLUCAGEN) injection 1 mg 1 mg intramuscular PRN Kathy [place] MD,MPH glucose chewable tablet 16 g 16 g oral PRN Kathy [place] MD,MPH 16 g at 08/22/19 1009 guar gum (BENEFIBER) oral powder 1 packet 1 packet oral DAILY Kathy [place] MD,MPH 1 packet at 08/28/19 1010 heparin 1,000 unit/mL injection 1-3 mL 1-3 mL Intracatheter 4B DIALYSIS PRN Pramod Carter MD 3 mL at 08/25/19 1223 insulin lispro (HUMALOG) injection 1-16 Units 1-16 Units subcutaneous TID W/MEALS Marsha Garcia MD 2 Units at 08/28/19 0758 insulin lispro (HUMALOG) injection 10 Units 10 Units subcutaneous QPM MEAL Kris arango MD 10 Units at 08/27/19 1901 insulin lispro (HUMALOG) injection 5 Units 5 Units subcutaneous QAM MEAL Kris rosa MD 5 Units at 08/28/19 0758 insulin lispro (HUMALOG) injection 8 Units 8 Units subcutaneous QLUNCH Kris wilcox MD 8 Units at 08/28/19 1338 insulin NPH (HUMULIN N) injection 18 Units 18 Units subcutaneous QAM Kris Pantoja MD 18 Units at 08/28/19 0758 insulin NPH (HUMULIN N) injection 8 Units 8 Units subcutaneous HS Judith Griggs 8 Units at 08/27/19 2058 lidocaine (LIDODERM) 5 % patch 1 patch 1 patch transdermal Q24H Zunilda L Colovos, ACNP 1 patch at 08/23/19 1651 lidocaine (LIDODERM) 5 % patch 1 patch 1 patch transdermal Q24H Zunilda L Colovos, ACNP 1 patch at 08/23/19 1651 metoprolol tartrate (LOPRESSOR) tablet 6.25 mg 6.25 mg oral BID Marsha Garcia MD 6 .25 mg at 08/28/19 1010 mycophenolate (CELLCEPT) capsule 1,000 mg 1,000 mg oral BID (MMF) Homero Cid MD 1,000 mg at 08/28/19 0757 omeprazole (PRILOSEC) capsule 20 mg 20 mg oral BEFORE BREAKFAST Marsha Garcia MD 2 0 mg at 08/28/19 0613 oxyCODONE (immediate release) (ROXICODONE) tablet 2.5-5 mg 2.5-5 mg oral Q4H PRN Marsha Garcia MD 2.5 mg at 08/27/19 2121 polyethylene glycol (MIRALAX) packet 17 g 17 g oral DAILY Pattie Ignacio PA-C 17 g at 08/20/19 0835 polyethylene glycol (MIRALAX) packet 34 g 34 g oral TID PRN Kathy [place]ridge MD,MPH [START ON 08/31/2019] predniSONE (DELTASONE) tablet 15 mg 15 mg oral DAILY Marsha cohen MD predniSONE (DELTASONE) tablet 20 mg 20 mg oral DAILY Marsha Garcia MD 20 mg at 06/08 0757 probiotic yogurt (MAGEN'S YOGURT) oral DAILY Marsha Garcia MD QUEtiapine (SEROQUEL) tablet 12.5 mg 12.5 mg oral HS Pattie Ignacio PA-C 12.5 mg at 08/27/192053 QUEtiapine (SEROQUEL) tablet 25 mg 25 mg oral HS PRN Kathy [place] MD,MPH 25 mg a t 08/18/192113 senna-docusate (SENOKOT S) 8.6-50 mg 1 tablet 1 tablet oral BID Kathy [place] MD,MP H 1 tablet at 08/27/19 0739 tacrolimus capsule 4 mg 4 mg oral BID ( and ) Homero Cid MD 4 mg at 06/08 0758 tamsulosin (FLOMAX) capsule 0.4 mg 0.4 mg oral DAILY Zunilda L Colovos, ACNP 0.4 mg at 08/28/19 0757 trimethoprim-sulfamethoxazole (BACTRIM, SEPTRA) 80-400 mg 1 tablet 1 tablet oral Once per day on Sat Marsha Garcia MD 1 tablet at 08/27/19 1546 valGANciclovir (VALCYTE) tablet 450 mg 450 mg oral Once per day on Sat Marsha Garcia MD 450 mg at 08/27/19 1546 Protocols to Initiate or Resume: EPO/Iron Vitamin D Phosphorous Nutrition Assessment Heparin: per protocol based on weight Test Frequency ICD-10 Dx Code Hemogram Every 2 Weeks N17.9 Chem Profile ONCE A WEEK N17.9 URR Every 1 Month N17.9 KT/V Every 1 Month N17.9 Iron Studies Every 1 Month D63.1 Ferritin Every 1 Month D63.1 PTH Every 1 Quarter N25.81 Aluminum Every 1 Year N17.9 Hep B s AG Every 1 Year N17.9 Hep B s AB Every 1 Year N17.9 Hep B c AB Every 1 Year N17.9 Creatinine Clearance (24 hour urine) Every 2 weeks N17.9 25-OH Vit D Level Every 1 Year N25.81 Additional orders: *PLEASE FAX WEEKLY CHEMISTRY RESULTS AND EVERY OTHER WEEK CREATININE CLEARANCE RESULTS TO [facility] OFFICE, .* Please call if questions. This patient was staffed with Dr. Maldonado. [facility] Division of Nephrology and Hypertnesion [address] [facility] [address] [place] [address] documented in this encounter Plan of Treatment [...] Rd | | | | | | [place], [place] | | | | | | [address] | | | | | | [phone] | | | | | | | | +--------+ + + + + | 09/27/ | Telephone-S | Liver Transplant | Vimal Crowe MD | | | 2019 | cheduled | | [address] | | | | | | [address], | | | | | | [place] [address] | | | | | | [phone] | | | | | | | [...] Rd | | | | | | [place], [place] | | | | | | [address] | | | | | | [phone] | | | | | | | | +--------+ + + + + documented as of this encounter Visit Diagnoses Not on filedocumented in this encounter
--- OUTSIDE RECORDS SUMMARY | ~2020-07-29 | XMS | Encounter Summary ---
Demographics + + + | Address | [address] | | | [place] [address] | + + + | Home Phone [...] Author + + + | Author | [facility] | + + + | Organization | [facility] | + + + | Address | Unknown | + + + | Phone | Unavailable | + + + Support + + + + + | Name | Relationship | Address | Phone | + + + + + | Doreen Manley | ECON | [address] | | | | | [place] | | | | | [address] | | + + + + + Care Team Providers + +------+ + | Care Business Machines Teacher Name | Role | Phone | + +------+ + | Sharon David MD | PCP | | + +------+ + Encounter Details +--------+ + + + + | Date | Type | Department | Care Team | Description | +--------+ + + + + | 04/11/ | Pharmacy | [facility] | | | | 2020 | Visit | [address] | | | | | | [address] | | | | | | [place] [address] | | | | | | [phone] | | | +--------+ + + + [...] Rd | | | | | | [place], [place] | | | | | | [address] | | | | | | [phone] | | | | | | | | +--------+ + + + + | 09/27/ | Telephone-S | Liver Transplant | Vimal Crowe MD | | | 2019 | cheduled | | [address] | | | | | | [address], | | | | | | [place] [address] | | | | | | [phone] | | | | | | | [...] Rd | | | | | | [place] | | | | | | [address] | | | | | | [phone] | | | | | | | | +--------+ + + + + documented as of this encounter Visit Diagnoses Not on filedocumented in this encounter"
--- OUTSIDE RECORDS SUMMARY | ~2020-07-29 | XMS | Encounter Summary ---
Demographics + + + | Address | [address] | | | [place] [address] | + + + | Home Phone [...] Author | [facility] | + + + | Organization | [facility] | + + + | Address | Unknown | + + + | Phone | Unavailable | + + + Support + + + + + | Name | Relationship | Address | Phone | + + + + + | Doreen Manley | ECON | [address] | | | | | [place] | | | | | [address] | | + + + + + Care Team Providers + +------+ + | Care Subgrade Tester Name | Role | Phone | + +------+ + | Sharon David MD | PCP | | + +------+ + Encounter Details +--------+ + + + + | Date | Type | Department | Care Team | Description | +--------+ + + + + | 07/07/ | Pharmacy | Pharmacy @ [facility] | | | | 2019 | Visit | [address] | | | | [address] Mailcode: | | | | | | [facility] | | | | | | and Healing, | | | | | | [address] | | | | | | [place], [place] | | | | | | [address] | | | +--------+ + + + [...] Rd | | | | | | [place], [place] | | | | | | [address] | | | | | | [phone] | | | | | | | | +--------+ + + + + | 09/27/ | Telephone-S | Liver Transplant | Vimal Crowe MD | | | 2019 | [place] | | [address] | | | | | | [facility] [place], | | | | | | [place] [address] | | | | | | [phone] | | | | | | | [...] Rd | | | | | | [place], [place] | | | | | | [address] | | | | | | [phone] | | | | | | | | +--------+ + + + + documented as of this encounter Visit Diagnoses Not on filedocumented in this encounter"
--- OUTSIDE RECORDS SUMMARY | ~2020-07-29 | XMS | Encounter Summary ---
Demographics + + + | Address | [address] | | | [place] [address] | + + + | Home Phone [...] [place] | | | | | [address] | | + + + + + Care Team Providers + +------+ + | Care Mining Plant Operator Name | Role | Phone | + +------+ + | Sharon David MD | PCP | | + +------+ + Reason for Visit + + + | Reason | Comments | + + + | Social Work Notes | | + + + Encounter Details +--------+ + + + + | Date | Type | Department | Care Team | Description | +--------+ + + + + | 10/09/ | Documentati | Liver Transplant | Liv Stephenson, | Social Work Notes | | 2019 | on | at [facility] [address] | HUMAN RESOURCES COMPLIANCE MANAGER [address] | | | | | [address] | [facility] | | | | | [address] | [place], [place] | | | | | [place], [place] | [address] | | | | | [address] | [phone] | | | | | [phone] | | | +--------+ + + + [...] this encounter Miscellaneous Notes Telephone Encounter - Liv Stephenson, JACOBY - 10/15/2019 2:18 PM PSTLiver Transplant Socisandip l Work- Post Transplant Clinic Note LTX SW met with pt in conjuction with clinic appointment on 10/09/19. Pt received a liver t ransplant on 08/16/19. Progress: Pt was accompanied by his mother. Pt appears depressed with flat affect, mumbled speech. W riter spoke with both pt's mother and pt alone at different times. Pt's mother feels pt is n ot motivated to do anything and she struggles to know how to help him. She plans to leave at the beginning of October as her is ill. Pt reports it's been difficult because he hasn't been sleeping at night so he sleeps during the day instead. Family hasn't been out m uch due to pt's limited motivation to get going each day. Music Arranger suggested trying to do one thing a day that would benefit him physically or mentally. Pt agreed he could try this, mot her agreed she would help. Music Arranger discussed pt's longwall shearer operator housing options, pt doesn't know where he wants to live. Wr iter explained some options including staying with his mother in [place] but pt doesn't think t his would be a good idea. Pt does understand he needs to start looking for an apartment and has considered living in [place]. Pt's mother feels pt struggles with his previous life a nd friends and doesn't know what he will do moving forward. Music Arranger discussed this with pt alone, he reports he doesn't know what to do. He admits maybe he's depressed. He denies any thoughts to harm himself. He verbalize hope in his future an d want and need to move forward. Concerns: Pt appears to be struggling emotionally, navigating between his old life and lifestyle to q uestions of what his future holds and how things will differ. Music Arranger agreed to follow up wit h pt during next clinic visit. Follow Up Plan: Family appears to be willing to pay for pt's rental until Nov 22. Writer yannick handy continue to support pt in this process. Will meet with pt each week in clinic or as need ed. Liv Stephenson LCSW Liver Transplant Environmental Permitting Specialist Pager [phone] documented in this encounter Plan of Treatment +--------+ + + + + | Date | Type | Specialty | Care Team | Description | +--------+ + + + + | 08/08/ | Telephone-S | Nephrology | Angélica Chao, | | | 2019 | cheduled | | [address] [facility] | | | | | | [address] | | | | | | [place], [place] | | | | | | [address] | | | | | | [phone] | | | | | | | | +--------+ + + + + | 09/27/ | Telephone-S | Liver Transplant | Vimal Crowe MD | | | 2019 | cheduled | | [address] | | | | | | [address], | | | | | | [place] [address] | | | | | | [phone] | | | | | | | | +--------+ + + + + | 10/03/ | Appointment | Cardiology | | | | 2019 | | | | | +--------+ + + + + | 10/03/ | Office | Cardiology | Cyril Samuel | | | 2020 | Visit | | MD Patricia [address] [facility] | | | | | | [address] | | | | | | [place] | | | | | | [address] | | | | | | [phone] | | | | | | | | +--------+ + + + + documented as of this encounter Visit Diagnoses Not on filedocumented in this encounter"
--- OUTSIDE RECORDS SUMMARY | ~2020-07-29 | XMS | Encounter Summary ---
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 Health | | | | | ascites | Rd | and Healing, | | | | | (HCC) | [place], [place] | Building 1, | | | | | Procedures | [address] | 1st Floor | | | | | PHYSICAL | Phone: | [place], [place] | | | | | THERAPY | [phone] | [address] | | | | | REFERRAL | | Phone: | | | | | | | [phone] | | | | | | | Fax: | | | | | | | [phone] | +--------+--------+ + + + + Encounter Details +--------+---------+ + + + | Date | Type | Department | Care Team | Description | +--------+---------+ + + + | 10/29/ | Office | [facility] Physical | Dennys Hinson, PT | Difficulty walking | | 2020 | Visit | Therapy Services at | [address] | (Primary Dx); Leg | | | | [place] [address] [place], | edema; Status post | | | | [address] | [place] [address] | liver transplant | | | | [place] for [facility] | [phone] | (HCC) | | | | and Healing, | | | | | | Building 1, 1st | | | | | | Floor [place], [place] | | | | | | [address] | | | | | | [phone] | | | +--------+---------+ + + + [...] encounter Progress Notes Dennys Hinson, PT - 10/29/2019 10:00 AM PST Insurance: [place]or[place] [facility] [place] [facility] [place] / Product Type: Medicaid / Non-Medicare SUBJECTIVE: 10/12/2019 Had hospital stay for about 2 weeks for failure to thrive. Home for 2 days now. Feels happier, less medications feels this has been helpful to his well being. No longer di zzy when stand up, not feeling drowsy anymore States he had high HR in hospital. Activity at end of stay: Walking hallways(10-15 min), stairs, theraband exercises ( leg pre ss supine, Biceps curls) at bedside by end of stay. (saw inpt PT) Current activity: Walking in home, Doing his own laundry, cook Sleepin hours at a time "its amazing" Transport: medical Post op: 9 weeks Liver Transplant History of Presenting Problems: Donell is a [...] months. Walking in home, outdoors-yesterday went to [place] for the day did a little walking. [...] or twisting, for 8-12 weeks. OBJECTIVE: Vitals today: BP 109/78 mmHg HR 132 bpm PO2 100% Observation/Posture: Alert, able to understand. Range Of Motion: UE WFL Ankle Strength: [...] measure Interpretation 54 y.o. Score 09/03/2019 09/28/2019 10/29/2019 5 Times Sit to Stand not tested [...] Unable to change speeds without becoming unsteady 5.78 s 6 min walk test 50-59 yo: male 2178' BP 147/75 Hr 75 PO2 100% Walked 770 feet No stops Post vitals 147/71 HR 82 Po2 98% TUG 9.0 s Walk on line 20 ft Walk back 10 feet- change in step length, stops but able to stay on straight path. Treatment: Review of home program. Education: Rehabilitation diagnosis and plan of prison program: Exercise Date given Ankle pumps in sitting 10x 3x day 09/03/2019 LAQ 10x 3x day 09/03/[address] 10x 3x day 09/03/2019 Mini squat 10x 3x day 09/03/2019 Bridging 10x 3x day 09/21/2019 Rowing Side lunges 09/28 Walk 10 minutes 2-3x day 10/29/2019 ASSESSMENT: Improved mood and speech is coherent although at times still mumbles Improved walking tests corresponds with alertness and appear in better health. Elevated resting HR - with out symptoms today, but provided rest breaks. FUNCTIONAL GOALS: due in 12 weeks Goal [...] plan: progress leg strengthening exercises. Endurance exercises Requested update in referral from referring MD. This note is to serve as the discharge summary if the patient fails to attend further Physi julia Therapy appointments or contact the therapist regarding any change in their status. DENNYS HINSON, PT [facility] Scheduled Appointment time: 1045 (seen earlier 1005) The patient was seen for a total of 45 minutes of treatment time. 45 minutes was in direct contact care as described above and on completed flow sheets. Treatment Interventions duration in minutes: Procedure: Therapeutic Exercise 45 min Authorization information for first visit and progress reports Procedure Codes: Therapeutic Exercise 54274 and Gait Training 72952 Minutes per session: 45 Total number of [...] walking Next progress report 11/02/2019 Insurance: Payor: [employer] / Plan: [employer] [place] / Product Type: Medicaid / Number visits authorized: 13 (09/04/2019) Number visits used: 5 Outcome Measure 09/03/2019 Activity 1 (3 point [...] | Angélica Chao, | | 2019 | [place] | | [address] | | | | | | [address] | | | | | | [place], [place] | | | | | | [address] | | | | | | [phone] | | | | | | | | +--------+ + + + + | 09/27/ | Telephone-S | Liver Transplant | Vimal Crowe MD | | | 2019 | [place] | | [address] | | | | | | [address] | | | | | | [place] [address] | | | | | | [phone] | | | | | | | | +--------+ + + + + | 10/03/ | Appointment | Cardiology | | | | 2019 | | | | | +--------+ + + + + | 10/03/ | Office | Cardiology | Cyril Samuel | | | 2019 | Visit | | MD Patricia [address] | | | | | | [address] | | | | | | [place], [place] | | | | | | [address] | | | | | | [phone] | | | | | | | | +--------+ + + + + documented as of this encounter Procedures + +--------+ + + + | Procedure Name | Priori | Date/Time | Associated Diagnosis | Comments | | | ty | | | | + +--------+ + + + | [place] THERAPEUTIC | Routin | 10/29/2019 | Difficulty walking | | | EXERCISES | e | 11:45 AM | Leg edema Status | | | [...]
--- OUTSIDE RECORDS SUMMARY | ~2020-07-29 | XMS | Encounter Summary ---
Demographics + + + | Address | [address] | | | [place] [address] | + + + | Home Phone [...] [place] | | | | | [address] | | + + + + + Care Team Providers + +------+ + | Care Ambulatory Service Representative Name | Role | Phone [...] | [address] | [address] [place], | dose and prograf | | | | [address] [place], | [place] [address] | target 4-6 ) | | | | [place] [address] | [phone] | | | | | [phone] | | | +--------+ + + + [...] | | 2019 | [place] | | [address] | | | | | | [address] | | | | | | [place], [place] | | | | | | [address] | | | | | | [phone] | | | | | | | | +--------+ + + + + | 09/27/ | Telephone-S | Liver Transplant | Vimal Crowe MD | | | 2019 | [place] | | [address] | | | | | | [facility] [place], | | | | | | [place] [address] | | | | | | [phone] | | | | | | | [...] Rd | | | | | | [place] | | | | | | [address] | | | | | | [phone] | | | | | | | | +--------+ + + + + documented as of this encounter Visit Diagnoses Not on filedocumented in this encounter"
--- OUTSIDE RECORDS SUMMARY | ~2020-07-29 | XMS | Encounter Summary ---
Demographics + + + | Address | [address] | | | [place] [address] | + + + | Home Phone [...] [place] | | | | | [address] | | + + + + + Care Team Providers + +------+ + | Care Trains Dispatcher Supervisor Name | Role | Phone | + +------+ + | Sharon David MD | PCP | | + +------+ + Encounter Details +--------+--------+ + + + | Date | Type | Department | Care Team | Description | +--------+--------+ + + + | 03/18/ | Travel | | | | | [...] Rd | | | | | | [place], [place] | | | | | | [address] | | | | | | [phone] | | | | | | | | +--------+ + + + + | 09/27/ | Telephone-S | Liver Transplant | Vimal Crowe MD | | | 2019 | [place] | | [address] | | | | | | [facility] [address] [place], | | | | | | [place] [address] | | | | | | [phone] | | | | | | | | +--------+ + + + + | 10/03/ | Appointment | Cardiology | | | | 2019 | | | | | +--------+ + + + + | 10/03/ | Office | Cardiology | Cyril Samuel | | | 2019 | Visit | | MD Patricia [address] | | | | | | [address] | | | | | | [place] | | | | | | [address] | | | | | | [phone] | | | | | | | | +--------+ + + + + documented as of this encounter Visit Diagnoses Not on filedocumented in this encounter"
--- OUTSIDE RECORDS SUMMARY | ~2020-07-29 | XMS | Encounter Summary ---
Demographics + + + | Address | [address] | | | [place] [address] | + + + | Home Phone [...] [place] | | | | | [address] | | + + + + + Care Team Providers + +------+ + | Care Tire Repairer Name | Role | Phone | + +------+ + | Sharon David MD | PCP | | + +------+ + Encounter Details +--------+ + + + + | Date | Type | Department | Care Team | Description | +--------+ + + + + | 09/15/ | Pharmacy | Specialty Pharmacy | | | | 2019 | Visit | Services [address] | | | | | | [address] | | | | | | [place], [place] | | | | | | [address] | | | | | | [phone] | | | +--------+ + + + [...] | | 2019 | [place] | | [address] | | | | | | [address] | | | | | | [place], [place] | | | | | | [address] | | | | | | [phone] | | | | | | | | +--------+ + + + + | 09/27/ | Telephone-S | Liver Transplant | Vimal Crowe MD | | | 2019 | cheduled | | [address] | | | | | | [facility] [place], | | | | | | [place] [address] | | | | | | [phone] | | | | | | | | +--------+ + + + + | 10/03/ | Appointment | Cardiology | | | | 2019 | | | | | +--------+ + + + + | 10/03/ | Office | Cardiology | Cyril Samuel | | | 2019 | Visit | | MD Patricia [address] | | | | | | [address] | | | | | | [place], [place] | | | | | | [address] | | | | | | [phone] | | | | | | | | +--------+ + + + + documented as of this encounter Visit Diagnoses Not on filedocumented in this encounter"
--- OUTSIDE RECORDS SUMMARY | ~2020-07-29 | XMS | Encounter Summary ---
Demographics + + + | Address | [address] | | | [place] [address] | + + + | Home Phone | | + + + | Preferred Language | Unknown | + + + | Marital Status | Single | + + + | Yarsanism Affiliation | NON | + + + [...] [place] | | | | | [address] | | + + + + + Care Team Providers + +------+ + | Care Metal Flooring Installer Name | Role | Phone | + +------+ + | Sharon David MD | PCP | | + +------+ + Encounter Details +--------+ + + + + | Date | Type | Department | Care Team | Description | +--------+ + + + + | 01/11/ | Pharmacy | [facility] | | | | 2020 | Visit | [address] | | | | | | [address] | | | | | | [place] [address] | | | | | | [phone] | | | +--------+ + + + [...] Rd | | | | | | [place], [place] | | | | | | [address] | | | | | | [phone] | | | | | | | | +--------+ + + + + | 09/27/ | Telephone-S | Liver Transplant | Vimal Crowe MD | | | 2019 | [place] | | [address] | | | | | | [address], | | | | | | [place] [address] | | | | | | [phone] | | | | | | | [...] Rd | | | | | | [place] | | | | | | [address] | | | | | | [phone] | | | | | | | | +--------+ + + + + documented as of this encounter Visit Diagnoses Not on filedocumented in this encounter"
--- OUTSIDE RECORDS SUMMARY | ~2020-07-29 | XMS | Encounter Summary ---
Demographics + + + | Address | [address] | | | [place] [address] | + + + | Home Phone [...] [place] | | | | | [address] | | + + + + + Care Team Providers + +------+ + | Care Bonding And Composite Fabricator Name | Role | Phone | + [...] +--------+--------+ + + + + Encounter Details +--------+------+ + + + | Date | Type | Department | Care Team | Description | +--------+------+ + + + | 10/12/ | Lab | [facility] | | Liver transplant | | 2019 | | [address] | | status (HCC) | | | | [address] [facility] | | | | | | [place], [address] [place] [address] | | | | | | [place], [place] | | | | | | [address] | | | | | | [phone] | | | +--------+------+ + + + [...] Rd | | | | | | [place] | | | | | | [address] | | | | | | [phone] | | | | | | | | +--------+ + + + + | 09/27/ | Telephone-S | Liver Transplant | Vimal Crowe MD | | | 2019 | [place] | | [address] | | | | | | [place], | | | | | | [place] [address] | | | | | | [phone] | | | | | | | | +--------+ + + + + | 10/03/ | Appointment | Cardiology | | | | 2019 | | | | | +--------+ + + + + | 10/03/ | Office | Cardiology | Cyril Samuel | | | 2019 | Visit | | MD Patricia [address] [facility] | | | | | | [address] | | | | | | [place], [place] | | | | | | [address] | | | | | | [phone] | | | | | | | | +--------+ + + + + documented as of this encounter Procedures + +--------+ + + + | Procedure Name | Priori | Date/Time | Associated Diagnosis | Comments | | | ty | | | | + +--------+ + + + | CBC AND AUTO DIFF | Routin | 10/12/2019 | Liver transplant | Results for this | | | e | 8:50 AM | status (HCC) | procedure are in the | | | | PST | | results section. | + +--------+ + + + | CBC, WITH | Routin | 10/12/2019 | Liver transplant | Results for this | | DIFFERENTIAL | e | 8:50 AM | status (HCC) | procedure are in the | | | | PST | | results section. | + +--------+ + + + | COMPLETE METABOLIC | Routin | 10/12/2019 | Liver transplant | Results for this | | SET | e | 8:50 AM | status (HCC) | procedure are in the | | (NA,K,CL,CO2,BUN,CRE | | PST | | results section. | | AT,GLUC,CA,AST,ALT,B | | | | | | KEV TOTAL,ALK | | | | | | PHOS,ALB,PROT TOTAL) | | | | | + +--------+ + + + | TACROLIMUS, WHOLE | Routin | 10/12/2019 | Liver transplant | Results for this | | BLOOD | e | 8:50 AM | status (HCC) | procedure are in the | | | | PST | | results section. | + +--------+ + + + | PHOSPHORUS, PLASMA | Routin | 10/12/2019 | Liver transplant | Results for this | | | e | 8:50 AM | status (HCC) | procedure are in the | | | | PST | | results section. | + +--------+ + + + | BILIRUBIN DIRECT | Routin | 10/12/2019 | Liver transplant | Results for this | | | e | 8:50 AM | status (HCC) | procedure are in the | | | | PST | | results section. | + +--------+ + + + | URIC ACID, PLASMA | Routin | 10/12/2019 | Liver transplant | Results for this | | | e | 8:50 AM | status (HCC) | procedure are in the | | | | PST | | results section. | + +--------+ + + + | MAGNESIUM, PLASMA | Routin | 10/12/2019 | Liver transplant | Results for this | | | e | 8:50 AM | status (HCC) | procedure are in the | | | | PST | | results section. | + +--------+ + + + documented in this encounter Results CBC AND AUTO DIFF (10/12/2019 8:50 AM PST) + + + + + + | Component | Value | Ref Range | Performed | Pathologist | | | | | At | Signature | + + + + + + | WHITE CELL | 5.34 | 3.50 - 10.80 | [facility] | | | COUNT | | K/cu mm | LABORATORY | | | | | | SERVICES, | | | | | | CORE | | + + + + + + | RED CELL | 3.81 (L) | 4.50 - 6.00 | [facility] | | | COUNT | | M/cu mm | LABORATORY | | | | | | SERVICES, | | | | | | CORE | | + + + + + + | HEMOGLOBIN | 11.2 (L) | 13.5 - 17.5 | [facility] | | | | | g/dL | LABORATORY | | | | | | SERVICES, | | | | | | CORE | | + + + + + + | HEMATOCRIT | 34.5 (L) | 41.0 - 53.0 % | [facility] | | | | | | LABORATORY | | | | | | SERVICES, | | | | | | CORE | | + + + + + + | MCV | 90.6 | 80.0 - 100.0 fL | [facility] [...] + + + | RDW SD | 47.6 (H) | 35.1 - 46.3 fL | [facility] | | | | | | LABORATORY | | | | | | SERVICES, | | | | | | CORE | | + + + + + + | PLATELET | 101 (L) | 150 - 400 K/cu | [...] + + + + | LYMPHOCYTE | 23.2 | 18.0 - 42.0 % | [facility] | | | % | | | LABORATORY | | | | | | SERVICES, | | | | | | CORE | | + + + + + + | MONOCYTE % | 5.2 | 3.5 - 9.0 % | [facility] [...] + + + + | NEUTROPHIL | 3.68 | 1.80 - 7.70 | [facility] | | | # | | K/cu mm | LABORATORY | | | | | | SERVICES, | | | | | | CORE | | + + + + + + | LYMPHOCYTE | 1.24 | 1.00 - 4.80 | [facility] | [...] + + + + + | [facility] | [address] | [place] [address] | | | SERVICES, CORE | MOISES [...] + + + + + | [facility] | [address] | [place] [address] | | | SERVICES, CORE | PARK [...] | Test performed by immunoassay using Palafox Stonemason Helper i2000. . | [facility] | | Samples [...] + + + + + | [facility] | [address] | [place] [address] | | | SPECIAL CLAUDIA | MOISES [...] + + + + + | [facility] | [address] | [place] [address] | | | SERVICES, CORE | MOISES [...] [facility] | [address] | [place] [address] | | | SERVICES, CORE | PARK [...] [facility] | [address] | [place] [address] | | | SERVICES, CORE | PARK [...] | | | LABORATORY | | | [place] | | | SERVICES, | | | [...] MDRD equation recommended by the National | [facility] | | Kidney Disease Education Program. Estimated [...] + + + + + | [facility] | [address] | [place] [address] | | | SERVICES, ARTIS | MOISES [place]A | | | + + + + + documented in this encounter Visit Diagnoses + + | Diagnosis | + + | Liver transplant status (HCC) | + + documented in this encounter"
--- OUTSIDE RECORDS SUMMARY | ~2020-07-29 | XMS | Encounter Summary ---
Demographics + + + | Address | [address] | | | [place] [address] | + + + | Home Phone [...] [place] | | | | | [address] | | + + + + + Care Team Providers + +------+ + | Care Tank Assembler Name | Role | Phone | + +------+ + | Sharon David MD | PCP | | + +------+ + Encounter Details +--------+ + + + + | Date | Type | Department | Care Team | Description | +--------+ + + + + | 11/25/ | Pharmacy | [facility] | | | | 2020 | Visit | [address] | | | | | | [address] | | | | | | [place] [address] | | | | | | [phone] | | | +--------+ + + + [...] Rd | | | | | | [place], [place] | | | | | | [address] | | | | | | [phone] | | | | | | | | +--------+ + + + + | 09/27/ | Telephone-S | Liver Transplant | Vimal Crowe MD | | | 2019 | cheduled | | [address] | | | | | | [address], | | | | | | [place] [address] | | | | | | [phone] | | | | | | | [...] Rd | | | | | | [place] | | | | | | [address] | | | | | | [phone] | | | | | | | | +--------+ + + + + documented as of this encounter Visit Diagnoses Not on filedocumented in this encounter"
--- OUTSIDE RECORDS SUMMARY | ~2020-07-29 | XMS | Encounter Summary ---
Demographics + + + | Address | [address] | | | [place] [address] | + + + | Home Phone | | + + + | Preferred Language | Unknown | + + + | Marital Status | Single | + + + | Latter Day Affiliation | NON | + + + [...] [place] | | | | | [address] | | + + + + + Care Team Providers + +------+ + | Care Head Of Geography Name | Role | Phone | + [...] floor | | | | | | [place], [place] | | | | | | [address] | | | | | | [phone] | | | +--------+ + + + [...] Rd | | | | | | [place], [place] | | | | | | [address] | | | | | | [phone] | | | | | | | | +--------+ + + + + | 09/27/ | Telephone-S | Liver Transplant | Vimal Crowe MD | | | 2019 | [place] | | [address] | | | | | | [facility] [place], | | | | | | [place] [address] | | | | | | [phone] | | | | | | | [...] Rd | | | | | | [place], [place] | | | | | | [address] | | | | | | [phone] | | | | | | | | +--------+ + + + + documented as of this encounter Visit Diagnoses Not on filedocumented in this encounter"
--- OUTSIDE RECORDS SUMMARY | ~2020-07-29 | XMS | Encounter Summary ---
Demographics + + + | Address | [address] | | | [place] [address] | + + + | Home Phone [...] [place] | | | | | [address] | | + + + + + Care Team Providers + +------+ + | Care Chief Projectionist Name | Role | Phone | + +------+ + | Sharon David MD | PCP | | + +------+ + Reason for Visit + +--------+ + | Reason | Onset | Comments | | | Date | | + +--------+ + | Prior Authorization | 02/15/ | Calli-Approved | | Request - Medication | 2020 | | + +--------+ + Encounter Details +--------+ + + + + | Date | Type | Department | Care Team | Description | +--------+ + + + + | 02/15/ | Telephone | Nephrology & | Angélica Chao, | Prior Authorization | | 2019 | | [facility] | [address] | Request - Medication | | | | [address] | [address] | ([facility]-Approved) | | | | [facility] | [place], [place] | | | | | [place]yann, [address] [place] [address] | [address] | | | | | [place], [place] | [phone] | | | | | [address] | | | | | | [phone] | | | +--------+ + + + [...] Telephone Encounter - Kena Domínguez MA - 02/19/2020 1:54 PM [facility] [phone]. Confirmed approval was received. Order is in process and is sche duled to ship out today 02.19.20. Kena Domínguez MA elephone Encounter - Kena Mccarty MA - 02/19/2020 12:01 PM PDTIncoming fax from insurance regarding prior authoriz ation. [facility] insurance has approved patient's Lokelma 10GM OR PACK, expiration date 0. Approval letter has been uploaded to patient's chart under "NHT Lokelma 10GM OR PACK Approv al" Kena Domínguez MA elephone Encounter - Kena Mccarty MA - 02/18/2020 2:09 PM PDTReceived a fax from [facility] requirin g additional information. Sending forms over to Dr. Chao box drive to fill out and complet e. Forms will be saved under file: Donell Duran Paperwork. Kena Domínguez MA elephone Encounter - Gabbie Birmingham - 02/18/2020 12:29 PM PDTCall from [facility], following up on fax sent yesterday req uesting additional information for PA 12 :29 PM PDTTelephone Encounter - Kena Domínguez MA - 02/16/2020 4:03 PM PDTReceived request f rae Chao MD regarding prior authorization for sodium zirconium (LOKELMA) 10 gram o ral powder in packet. Requested ePA on [facility] to initiate the process. Will await payer response for the required f ields. Kena Domínguez MA documentjayce kevin in this encounter Plan of Treatment +--------+ + + + + | Date | Type | Specialty | Care Team | Description | +--------+ + + + + | 08/08/ | Telephone-S | Nephrology | Angélica Chao, | | | 2019 | [place] | | [address] | | | | | | [address] | | | | | | [place], [place] | | | | | | [address] | | | | | | [phone] | | | | | | | | +--------+ + + + + | 09/27/ | Telephone-S | Liver Transplant | Vimal Crowe MD | | 2019 | [place] | | [address] | | | | | | [address] | | | | | | [place] [address] | | | | | | [phone] | | | | | | | | +--------+ + + + + | 10/03/ | Appointment | Cardiology | | | | 2019 | | | | | +--------+ + + + + | 10/03/ | Office | Cardiology | Cyril Samuel | | | 2019 | Visit | | MD Patricia [address] | | | | | | [address] | | | | | | [place], [place] | | | | | | [address] | | | | | | [phone] | | | | | | | | +--------+ + + + + documented as of this encounter Visit Diagnoses Not on filedocumented in this encounter
--- OUTSIDE RECORDS SUMMARY | ~2020-07-29 | XMS | Encounter Summary ---
Demographics + + + | Address | [address] | | | [place] [address] | + + + | Home Phone [...] [place] | | | | | [address] | | + + + + + Care Team Providers + +------+ + | Care Vineyard Tender Name | Role | Phone | + +------+ + | Sharon David MD | PCP | | + +------+ + Reason for Referral Medication Prior Authorization (Routine) +--------+--------+ + + + + | Status | Reason | Specialty | Diagnoses / | Referred By | Referred To | | | | | Procedures | Contact | Contact | +--------+--------+ + + + + | Closed | | | Diagnoses | Zhanna, | | | | | | | Angélica Gavin, | | | | | | Hyperkalemia | [address] | | | | | | | [address] | | | | | | | [place] | | | | | | | [place], [place] | | | | | | | [address] | | | | | | | Phone: | | | | | | | [phone] | | | | | | | Fax: | | | | | | | [phone] | | +--------+--------+ + + + + Reason for Visit + +--------+ + | Reason | Onset | Comments | | | Date | | + +--------+ + | Lab Results | 06/09/ | | | | 2020 | | + +--------+ + Encounter Details +--------+ + + + + | Date | Type | Department | Care Team | Description | +--------+ + + + + | 06/09/ | Telephone | Nephrology & | Angélica Chao, | Lab Results | 2019 | | Hypertension at [facility] | [address] | | | | | [address] | [address] | | | | | Loop Physician's | [place], [place] | | | | | [facility], [address] [place] [address] | [address] | | | | | [place], [place] | [phone] | | | | | [address] | | | | | | [phone] | | | +--------+ + + + [...] Telephone Encounter - Angélica Chao MD - 06/09/2020 11:28 AM PDTReceived notification t Mobilygen message was unread. Called pt to follow up. -Re ultrasound, recommended urology eval given some hematuria and bladder wall thickening. He would prefer to see someone locally. He is seeing PCP tomorrow and will ask for a referra l. -Re hyperK, he's still having diarrhea sometimes with Lokelma and bc of that he is taking i t most often 1ce a week, not 2ce a week. I asked if he'd like to try alternative (patiromer) to see if less diarrhea. He would like to do that. I will order and anticipate prior auth. Pt in agreement with plans. Will copy txp coordinator to keep everyone in the loop. Angélica Chao MD [facility] Professor Division of Nephrology and Hypertension Office tel: [phone] A M PDTdocumented in this encounter Plan of [...] [address] | | | | | | [place], [place] | | | | | | [address] | | | | | | [phone] | | | | | | | | +--------+ + + + + | 09/27/ | Telephone-S | Liver Transplant | Vimal Crowe MD | | 2019 | cheduled | | [address] | | | | | | [facility] [place], | | | | | | [place] [address] | | | | | | [phone] | | | | | | | | +--------+ + + + + | 10/03/ | Appointment | Cardiology | | | | 2019 | | | | | +--------+ + + + + | 10/03/ | Office | Cardiology | Cyril Samuel | | | 2019 | Visit | | MD Patricia [address] [facility] | | | | | | [address] | | | | | | [place], [place] | | | | | | [address] | | | | | | [phone] | | | | | | | | +--------+ + + + + documented as of this encounter Visit Diagnoses + + | Diagnosis | + + | Hyperkalemia - Primary Hyperpotassemia | + + documented in this encounter"
--- OUTSIDE RECORDS SUMMARY | ~2020-07-29 | XMS | Encounter Summary ---
Demographics + + + | Address | [address] | | | [place] [address] | + + + | Home Phone [...] [place] | | | | | [address] | | + + + + + Care Team Providers + +------+ + | Care Arabic Teacher Name | Role | Phone | + +------+ + | Sharon David MD | PCP | | + +------+ + Encounter Details +--------+--------+ + + + | Date | Type | Department | Care Team | Description | +--------+--------+ + + + | 09/16/ | Travel | | | | | [...] Rd | | | | | | [place], [place] | | | | | | [address] | | | | | | [phone] | | | | | | | | +--------+ + + + + | 09/27/ | Telephone-S | Liver Transplant | Vimal Crowe MD | | | 2019 | [place] | | [address] | | | | | | [address], | | | | | | [place] [address] | | | | | | [phone] | | | | | | | [...] [place] | | | | | | [address] | | | | | | [phone] | | | | | | | | +--------+ + + + + documented as of this encounter Visit Diagnoses Not on filedocumented in this encounter"
--- OUTSIDE RECORDS SUMMARY | ~2020-07-29 | XMS | Encounter Summary ---
Demographics + + + | Address | [address] | | | [place] [address] | + + + | Home Phone [...] [place] | | | | | [address] | | + + + + + Care Team Providers + +------+ + | Care Certified Registered Dental Assistant Name | Role | Phone | + +------+ + | Sharon David MD | PCP | | + +------+ + Encounter Details +--------+ + + + + | Date | Type | Department | Care Team | Description | +--------+ + + + + | 05/13/ | Pharmacy | Clinical | | | | 2019 | Visit | Transplant Services | | | | | | [address] | | | | | | [place], | | | | | | [place] [address] | | | | | | [phone] | | | +--------+ + + + [...] | | 2019 | [place] | | [address] | | | | | | [address] | | | | | | [place], [place] | | | | | | [address] | | | | | | [phone] | | | | | | | | +--------+ + + + + | 09/27/ | Telephone-S | Liver Transplant | Vimal Crowe MD | | | 2019 | cheduled | | [address] | | | | | | [facility] [place], | | | | | | [place] [address] | | | | | | [phone] | | | | | | | | +--------+ + + + + | 10/03/ | Appointment | Cardiology | | | | 2019 | | | | | +--------+ + + + + | 10/03/ | Office | Cardiology | Cyril Samuel | | | 2019 | Visit | | MD Patricia [address] | | | | | | [address] | | | | | | [place], [place] | | | | | | [address] | | | | | | [phone] | | | | | | | | +--------+ + + + + documented as of this encounter Visit Diagnoses Not on filedocumented in this encounter"
--- OUTSIDE RECORDS SUMMARY | ~2020-07-29 | XMS | Encounter Summary ---
Demographics + + + | Address | [address] | | | [place] [address] | + + + | Home Phone [...] [place] | | | | | [address] | | + + + + + Care Team Providers + +------+ + | Care Stockroom Keeper Name | Role | Phone | + +------+ + | Sharon David MD | PCP | | + +------+ + Reason for Visit + + + | Reason | Comments | + + + | Committee Review | | | Recommendations | | + + + Encounter Details +--------+ + + + + | Date | Type | Department | Care Team | Description | +--------+ + + + + | 07/16/ | Committee | Clinical | Haley Fernández, | Committee Review | | 2019 | Review | Transplant Services | RN [address] | Recommendations | | | | [address] | [address] | | | | | [place], | [place], [place] | | | | | [place] [address] | [address] | | | | | [phone] | | | +--------+ + + + [...] encounter Miscellaneous Notes Committee Review - Haley Fernández RN - 07/16/2019 1:48 PM PDT07/16/19 Listed patient to day. See [facility] listing note for details. From: Vimal Crowe Sent: Wednesday, June 19, 2019 12:59 PM To: Chasidy Osullivan <[email or web address]>; Tyson Bellamy <[email or web address]> Cc: Haley Fernández <[email or web address]> Subject: RE: Questions on mutual patient! Thank you Chasidy. If Dr. Magallon agrees after seeing him then we are most likely going t o go ahead with listing and hopefully Dr. Bellamy will get the rid of the iron afterwards. Vimal From: Chasidy Osullivan Sent: Wednesday, June 19, 2019 12:26 PM To: Vimal Crowe; Tyson Bellamy Cc: Haley Fernández Subject: RE: Questions on mutual patient! So the main concern is his increased risk for heart failure. Dr. Magallon agrees that transp lant is likely the solution but with the myocardial Fe deposition he should be known to our Heart failure team. I let his sister, Doreen know to expect a call from cardiology to have Donell see Dr. Magallon. Chasidy 04/30/19 Decision: DEFERRED, notified sister Doreen and Donell of decision and recommendations, all ques tions answered. Providers Intent: HCV +: Yes Special Donor [...] Committee. DONE, Committ ee on 07/09/19 05/18/19, [facility], Dr. 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 He has now developed significant transfusions associated iron over load with detectable liver and myocardial iron overload. Difficult situation as his liver di sease precludes the more common chelator Deferasirox. He also lives quite far from [facility] in [place], making the needed routine followup difficult. We discussed a trial of deferipron e with local monitoring (elis). He will need to see a local hearing aid dispenser [facility] for symptoms monitoring. He was agreeable to that plan. I will see him back in 6mo f or revaluation. If he should proceed to transplant we can stop the chelation and 06/10/[address] Bellamy's office: The medication was ordered and from what I can see the cost for a one month supply would quintana ve been nearly $30,000! I will send a message to the pharmacy to see why none of this was co mmunicated and if there are other options. 07/06/19 Dr. Samuel, [facility] - note to be reviewed at Liver Transplant Committee Review on 2. Urology Consult due to red blood cells, 6/hpf in urine on 04/22/19. Ordered - DONE 05/20/19, Dr. Diego, Urology Consult, [facility]: UA today: Moderate blood (a previous [...] dated 05/26/19, and 06/09/19. Sent all to technical support specialist to post and scan on 06/16/19 06/16/19 [facility]: Urine sharmila <2 Urine cotinine <5 06/23/19 Sent to technical support specialist to post and scan 4. Continue to engage in relapse prevention. DONE 06/05/19 Chacho [place] planning to f/u with counselor and sister. 06/08/19 Social Work note - PUBLIC AFFAIRS MANAGER spoke with pt's substance use counselor, Karolyn Xie from [facility] today ([phone]). Karolyn confirmed that pt continues to engage in weekly counseling with her focusing on relapse prevention and building coping skills. He also provides UA's, which have all been negative. Their next appointment is set for tomorrow 06/09/2019. Recommendation status from a psychosocial perspective: Complete 5. CT abdomen now. Ordered - DONE 05/19/19 Done at [facility] 05/21/19 Dr. Garcia reviewed - no surgical issues. Sent to Dr. Crowe for review as well. On checklist for US in 6 months. [facility]: Post transplant phlebotomy Recommendations to be completed but not required prior to listin. Ongoing screening for hepatocellular carcinoma: Abdominal ultrasound alternating with C T scan and AFP blood draw every 6 months. Scans should be done at [facility], combined with your p hysician appointments. US & AFP due 10/23/19. CT & AFP due 04/22/20. 05/19/19 CT done at [facility] - Dr. Garcia reviewed 05/21/19, sent [...] Porsche Perdomo RN, * Referred today to [facility] Hematology. 5. 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 Ordered 6. You are at risk for complications after dental extractions. Per [facility] Liver Transplant p olicy, we recommend [...] level normalizes. 11. Vitamin D supplementation: Ergocalciferol 28086 units weekly x 6-8 weeks, then re-chec k 25-OH vit D; can give 1000 to 2000 units cholecalciferol daily when 25-OH vit D [address] 12. Vitamin A supplementation: 87524 IU (International Units, oral capsule). Take 2 capsul es: 18491 IU by mouth 3 times a week [...] | | 2019 | [place] | | [address] | | | | | | [address] | | | | | | [place], [place] | | | | | | [address] | | | | | | [phone] | | | | | | | | +--------+ + + + + | 09/27/ | Telephone-S | Liver Transplant | Vimal Crowe MD | | | 2019 | [place] | | [address] | | | | | | [address], | | | | | | [place] [address] | | | | | | [phone] | | | | | | | [...] Rd | | | | | | [place], [place] | | | | | | [address] | | | | | | [phone] | | | | | | | | +--------+ + + + + documented as of this encounter Visit Diagnoses Not on filedocumented in this encounter
--- OUTSIDE RECORDS SUMMARY | ~2020-07-29 | XMS | Encounter Summary ---
Demographics + + + | Address | [address] | | | [place] [address] | + + + | Home Phone [...] [place] | | | | | [address] | | + + + + + Care Team Providers + +------+ + | Care Cruller Maker Machine Name | Role | Phone | + +------+ + | Sharon David MD | PCP | | + +------+ + Encounter Details +--------+ + + + + | Date | Type | Department | Care Team | Description | +--------+ + + + + | 11/02/ | Pharmacy | Outpatient Retail | | | | 2019 | Visit | [facility] | | | | | | [address] | | | | | | Loop [place], [place] | | | | | | [address] | | | | | | [phone] | | | +--------+ + + + [...] | | | | | | [place], [place] | | | | | | [address] | | | | | | [phone] | | | | | | | | +--------+ + + + + | 09/27/ | Telephone-S | Liver Transplant | Vimal Crowe MD | | | 2019 | cheduled | | [address] | | | | | | [facility] [place], | | | | | | [place] [address] | | | | | | [phone] | | | | | | | [...] | | | | | | [place], [place] | | | | | | [address] | | | | | | [phone] | | | | | | | | +--------+ + + + + documented as of this encounter Visit Diagnoses Not on filedocumented in this encounter"
--- OUTSIDE RECORDS SUMMARY | ~2020-07-29 | XMS | Encounter Summary ---
Demographics + + + | Address | [address] | | | [place] [address] | + + + | Home Phone [...] [place] | | | | | [address] | | + + + + + Care Team Providers + +------+ + | Care Hospital Mortician Name | Role | Phone | + +------+ + | Sharon David MD | PCP | | + +------+ + Reason for Visit + + + | Reason | Comments | + + + | Return Patient | | + + + Consultation (Routine) +--------+--------+ + + + + | Status | Reason | Specialty | Diagnoses / | Referred By | Referred To | | | | | Procedures | Contact | Contact | +--------+--------+ + + + + | Closed | | Hepatology | Diagnoses | David, | Sebastien, | | | | | Cirrhosis | Lohith | Vimal Arita MD | | | | | of liver | MD Lei | [address] | | | | | (HCC) | [address] | | | | | | [address] | [facility], | | | | | | [place], | [place] [address] | | | | | | [place] [address] | Phone: | | | | | | Phone: | [phone] | | | | | | [phone] | Fax: | | | | | | Fax: | [phone] | | | | | | [phone] | | +--------+--------+ + + + + Encounter Details +--------+---------+ + + + | Date | Type | Department | Care Team | Description | +--------+---------+ + + + | 02/25/ | Office | Digestive Health | Vimal Crowe MD | Alcoholic cirrhosis | | 2019 | Visit | Center at [facility] [address] | [address] | of liver with | | | | [address] | [address] [place], | ascites (HCC) | | | | for Health and | [place] [address] | (Primary Dx); | | | | Healing, [address] | [phone] | Chronic kidney | | | | [place], [place] | | disease, unspecified | | | | [address] | | CKD stage; | | | | [phone] | | Hepatorenal syndrome | | | | | | (HCC); Abnormal | | | | | | echocardiogram | +--------+---------+ + + + Social History [...] + + + | Blood Pressure | 130/59 | 02/25/2019 11:36 AM | | | | | PDT | | + + + + + | Pulse | 81 | 02/25/2019 11:36 AM | | | | | PDT | | + + + + + | Temperature | 36.7 C (98.1 F) | 02/25/2019 11:36 AM | | | | | PDT | | + + + + + | Respiratory Rate | 16 | 02/25/2019 11:36 AM | | | | | PDT | | + + + + + | Oxygen Saturation | - | - | | + + + + + | Inhaled Oxygen | - | - | | | Concentration | | | | + + + + + | Weight | 85.5 kg (188 lb 6.4 | 02/25/2019 11:36 AM | | | | oz) | PDT | | + + + + + | Height | 180.3 cm (5' 11") | 02/25/2019 11:36 AM | | | | | PDT | | + + + + + | Body Mass Index | 26.28 | 02/25/2019 11:36 AM | | | | | PDT | | + + + + + documented in this encounter Patient Instructions Patient Instructions Vimal Crowe MD - 02/25/2019 11:55 AM PDT1. Continue low sodium t of < 2grams/day 2. Follow up with renal recs 3. Will request expedited cards evalElectronically signed by Vimal Crowe MD at 9 12:35 PM PDT documented in this encounter Progress Notes Vimal Crowe MD - 02/25/2019 11:55 AM PDT HEPATOLOGY FOLLOW UP PATIENT VISIT Sharon David MD [facility] [address] [place] [address]: [phone] RE: Steffen Duran : [address] David: I had the pleasure of seeing Steffen Duran in the Liver Clinic at [facility] today. Histor y and physical examination was performed. Pertinent laboratory, imaging, pathology results w ere reviewed. HISTORY OF PRESENT ILLNESS/INTEVAL HISTORY: Mr. Duran is a 53 YO man who is referred for alcoholic hepatitis with likely underlying alc oholic cirrhosis. Since last visit, feeling little better. Still with ascites, on lasix 20 mg bid but with CK D and concern of HRS- seeing renal next. Of note TTE with RVSP of 62. Referred to cardiology- appt pending. States in December/January 2018 was hospitalized with [...] - Treatment: no outpt rehab 2. Hepatic decompensation: ascites, HRS. No variceal bleed 3. Secondary Dx --Besides liver disease and etoh use d/o denies any other 4. Preventive care - HBV/HAV status: ? - Bone mineral density- Dexa, Vit D - Flu, Pneumovax: up to date - Colon cancer screening: no polyps 06/2018 5. Social 4 adult children 1/2: mom and sister from [place]- who can come here No smoking No [...] facility-administered medications for this visit. PHYSICAL EXAMINATION: Last Vitals: BP 130/59 | Pulse 81 | Temp 36.7 C (98.1 F) (Oral) | Resp 16 | Ht 1.80 3 m (5' 11") | Wt 85.5 kg (188 lb 6.4 oz) | BMI 26.28 kg/m | BSA 2.07 m 24 Hour Vital Min/Max: @SBPMAX(24)@ @DBPMAX(24)@ @FLOWSTAT(8:24::1)@ @FLOWSTAT(6:24::1)@ @FLOWSTAT(9:24::1)@ @FLOWSTAT(10:24::1)@ @IOBRIEF@ General Appearance: alert and in no acute distress. HEENT: oropharynx without lesions. Icteric sclerae. Neck: supple, nontender Lungs: clear to auscultation. Heart: RRR w/ +murmur Abdomen: soft, nontender, mild distension Normal bowel sounds. Extremities: + edema Skin: jaundice Neurological exam nonfocal, no asterixis, alert and oriented without encephalopathy. + spider angiomata, palmar erythema. LABS: @LIVERLABS@ Lab Results Component Value Date TBILI 14.0 (H) 02/12/2019 TBILI 13.0 (H) 01/27/2019 TBILI 15.4 (H) 01/22/2019 AP 180 (H) 02/12/2019 AP 143 (H) 01/27/2019 AP 106 01/22/2019 TP 8.4 (H) 11/19/2018 DIRBILI 4.0 (H) 02/12/2019 DIRBILI 3.9 (H) 01/22/2019 ALB 3.1 (L) 02/12/2019 ALB 3.2 (L) 01/27/2019 ALB 3.0 (L) 01/22/2019 AST 88 (H) 02/12/2019 AST 100 (H) 01/27/2019 AST 98 (H) 01/22/2019 ALT 37 02/12/2019 ALT 44 01/27/2019 ALT 43 01/22/2019 Lab Results Component Value Date NA 129 02/12/2019 K 4.8 02/12/2019 CL 95 11/19/2018 CL 96 11/19/2018 BICARB 26 11/19/2018 BICARB 26 11/19/2018 BUN 46 02/12/2019 CR 1.32 02/12/2019 GLU 107 02/12/2019 CA 9.7 11/19/2018 CA 9.8 11/19/2018 Lab Results Component Value Date WBC 6.9 02/12/2019 RBC 1.84 (L) 02/12/2019 HB 7.2 (L) 02/12/2019 HCT 20.7 (L) 02/12/2019 MCV 96.1 11/19/2018 MCHC 34.7 11/19/2018 RDW 68.3 (H) 11/19/2018 PLT 69 (L) 02/12/2019 MPV 9.7 11/19/2018 NRBCPERC 0.0 11/19/2018 NRBCABS 0.00 11/19/2018 No HFE mutation found. SIGNIFICANT IMAGING: Note: All available outside records have been reviewed in the course of this visit, and azeb ecially pertinent ones noted above: US limited locally Steatosis, no liver lesion MRI 11/19/19- IMPRESSION: 1. Cirrhosis with portal hypertension. No [...] There is moderate to severe pulmonary hypertension. ASSESSMENT/PLAN: Mr. Duran is a 53 YO man who is referred for alcoholic hepatitis with likely underlying alc oholic cirrhosis. # Alcoholic cirrhosis w/ hx of alcoholic hepatitis: Iron sat elevated but no HFE mutation f ound. Cirrhosis c/b ascites and concern of HRS- followed by renal. Last etoh use 06/2018 with neg Peth test. MELD high and meets indication for LT however TTE with RVSP of 63. Referred to cards for further eval- R cath consideration. If does truly have sig pulm HTN then will b e barrier to LT if can't be treated. Will request if he can be seen sooner to determine LT c andidacy. # Risk for metabolic bone disease. As [...] for 30-45 minutes. SUMMARY OF RECOMMENDATIONS: 1. Continue low sodium diet of < 2grams/day and follow up with renal recs regarding HRS/diu retics 2. Will request if he an be seen sooner in cards 3. Continue etoh abstinence and recommend outpatient etoh treatment program 4. Avoid NSAIDs 5. EGD 06/2018 no varices, repeat 06/2019, sooner if neded 6. Annual flu vaccine, both pneumonia vaccines Thank you for allowing me to participate in the care of this patient. Please feel free to contact me with any questions regarding the patient's care. Warmest regards. Sincerely, Vimal Crowe MD Holistic Specialistknife sharpener [facility] Hepatology Anna machado in this encounter Plan of Treatment [...] Rd | | | | | | [place], [place] | | | | | | [address] | | | | | | [phone] | | | | | | | | +--------+ + + + + | 09/27/ | Telephone-S | Liver Transplant | Vimal Crowe MD | | | 2019 | [place] | | [address] | | | | | | [address] | | | | | | [place] [address] | | | | | | [phone] | | | | | | | [...] Rd | | | | | | [place], [place] | | | | | | [address] | | | | | | [phone] | | | | | | | | +--------+ + + + + documented as of this encounter Visit Diagnoses + + | Diagnosis | + + | Alcoholic cirrhosis of liver with ascites (HCC) - Primary Alcoholic cirrhosis of | | liver | + + | Chronic kidney disease, unspecified CKD stage | + + | Hepatorenal syndrome (HCC) Hepatorenal syndrome | + + | Abnormal echocardiogram Nonspecific (abnormal) findings on radiological and other | | examination of other intrathoracic organs | + + documented in this encounter
--- OUTSIDE RECORDS SUMMARY | ~2020-07-29 | XMS | Encounter Summary ---
Demographics + + + | Address | [address] | | | [place] [address] | + + + | Home Phone | | + + + | Preferred Language | Unknown | + + + | Marital Status | Single | + + + | Lutheran Affiliation | NON | + + + [...] [place] | | | | | [address] | | + + + + + Care Team Providers + +------+ + | Care Seed Expert Name | Role | Phone | + +------+ + | Sharon David MD | PCP | | + +------+ + Encounter Details +--------+ + + + + | Date | Type | Department | Care Team | Description | +--------+ + + + + | 07/15/ | Abstract | Clinical | Vimal Crowe MD | | | 2019 | | Transplant Services | [address] | | | | | [address] | [address] [place], | | | | | [place], | [place] [address] | | | | | [place] [address] | [phone] | | | | | [phone] | | | +--------+ + + + [...] Rd | | | | | | [place], [place] | | | | | | [address] | | | | | | [phone] | | | | | | | | +--------+ + + + + | 09/27/ | Telephone-S | Liver Transplant | Vimal Crowe MD | | | 2019 | [place] | | [address] | | | | | | [facility] [address] [place], | | | | | | [place] [address] | | | | | | [phone] | | | | | | | | +--------+ + + + + | 10/03/ | Appointment | Cardiology | | | | 2019 | | | | | +--------+ + + + + | 10/03/ | Office | Cardiology | Cyril Samuel | | | 2019 | Visit | Darren Gomez MD [address] | | | | | | [address] | | | | | | [place], [place] | | | | | | [address] | | | | | | [phone] | | | | | | | [...] Results LIVER TRANSPLANT POST PANEL (EXT RESULTS) (07/12/2020 9:52 AM PDT) + + + + + [...] + + + | GLUCOSE, | 208 | | [facility] | | | PLASMA [...] + + + + | CREATININE | 3.49 | mg/dL | [facility] | | | [...] + + + + | MAGNESIUM,P | 2.6 | mg/dL | [facility] | | | [...] + + + | ALK PHOS | 75 | U/L | [facility] | | | [...] + | ALT (SGPT) | 23 | U/L | [facility] | | | | | | LAB - | | | | | | [place] | | + + + + + + | URIC ACID, | 9.1 | mg/dL | [facility] | | | PLASMA | | | LAB - | | | (LAB) | | | [place] | | + + + + + + | WHITE CELL | 5.8 | K/cu mm | [facility] | | | COUNT | | | LAB - | | | | | | [place] | | + + + + + [...] + + + + | TACROLIMUS | 6.8 | ng/mL | [facility] | | | [address] | [place] | [phone] | | [place] | | | | + + + + + documented in this encounter Visit Diagnoses Not on filedocumented in this encounter"
--- OUTSIDE RECORDS SUMMARY | ~2020-07-29 | XMS | Encounter Summary ---
Demographics + + + | Address | [address] | | | [place] [address] | + + + | Home Phone [...] [place] | | | | | [address] | | + + + + + Care Team Providers + +------+ + | Care Edger Operator Name | Role | Phone | + +------+ + | Sharon David MD | PCP | | + +------+ + Encounter Details +--------+ + + + + | Date | Type | Department | Care Team | Description | +--------+ + + + + | 02/24/ | Pharmacy | [facility] | | | | 2020 | Visit | [address] | | | | | | [address] | | | | | | [place] [address] | | | | | | [phone] | | | +--------+ + + + [...] Rd | | | | | | [place], [place] | | | | | | [address] | | | | | | [phone] | | | | | | | | +--------+ + + + + | 09/27/ | Telephone-S | Liver Transplant | Vimal Crowe MD | | | 2019 | [place] | | [address] | | | | | | [address], | | | | | | [place] [address] | | | | | | [phone] | | | | | | | [...] Rd | | | | | | [place] | | | | | | [address] | | | | | | [phone] | | | | | | | | +--------+ + + + + documented as of this encounter Visit Diagnoses Not on filedocumented in this encounter"
--- OUTSIDE RECORDS SUMMARY | ~2020-07-29 | XMS | Encounter Summary ---
Demographics + + + | Address | [address] | | | [place] [address] | + + + | Home Phone [...] [place] | | | | | [address] | | + + + + + Care Team Providers + +------+ + | Care Box Sealing Machine Feeder Name | Role | Phone | + +------+ + | Sharon David MD | PCP | | + +------+ + Encounter Details +--------+ + + + + | Date | Type | Department | Care Team | Description | +--------+ + + + + | 07/07/ | Pharmacy | [facility] | | | | 2020 | Visit | [address] | | | | | | [address] | | | | | | [place] [address] | | | | | | [phone] | | | +--------+ + + + [...] Rd | | | | | | [place], [place] | | | | | | [address] | | | | | | [phone] | | | | | | | | +--------+ + + + + | 09/27/ | Telephone-S | Liver Transplant | Vimal Crowe MD | | | 2019 | [place] | | [address] | | | | | | [address], | | | | | | [place] [address] | | | | | | [phone] | | | | | | | [...] | | | | | | [place] | | | | | | [address] | | | | | | [phone] | | | | | | | | +--------+ + + + + documented as of this encounter Visit Diagnoses Not on filedocumented in this encounter"
--- OUTSIDE RECORDS SUMMARY | ~2020-07-29 | XMS | Encounter Summary ---
Demographics + + + | Address | [address] | | | [place] [address] | + + + | Home Phone [...] [place] | | | | | [address] | | + + + + + Care Team Providers + +------+ + | Care Exhibits Curator Name | Role | Phone | + +------+ + | Sharon David MD | PCP | | + +------+ + Reason for Visit + +--------+ + | Reason | Onset | Comments | | | Date | | + +--------+ + | Care Questions | 10/02/ | | | | 2019 | | + +--------+ + Encounter Details +--------+ + + + + | Date | Type | Department | Care Team | Description | +--------+ + + + + | 10/02/ | Telephone | Clinical | Judie Mota, | Care Questions | | 2018 | | Transplant Services | RN [address] | | | | | [address] | [address] | | | | | [place], | [place], [place] | | | | | [place] [address] | [address] | | | | | [phone] | | | +--------+ + + + [...] Rd | | | | | | [place], [place] | | | | | | [address] | | | | | | [phone] | | | | | | | | +--------+ + + + + | 09/27/ | Telephone-S | Liver Transplant | Vimal Crowe MD | | | 2019 | [place] | | [address] | | | | | | [address], | | | | | | [place] [address] | | | | | | [phone] | | | | | | | | +--------+ + + + + | 10/03/ | Appointment | Cardiology | | | | 2019 | | | | | +--------+ + + + + | 10/03/ | Office | Cardiology | Cyril Samuel | | | 2020 | Visit | | MD Patricia [address] [facility] | | | | | | [address] | | | | | | [place] | | | | | | [address] | | | | | | [phone] | | | | | | | | +--------+ + + + + documented as of this encounter Visit Diagnoses Not on filedocumented in this encounter"
--- OUTSIDE RECORDS SUMMARY | ~2020-07-29 | XMS | Encounter Summary ---
Demographics + + + | Address | [address] | | | [place] [address] | + + + | Home Phone [...] [place] | | | | | [address] | | + + + + + Care Team Providers + +------+ + | Care Municipal Court Magistrate Name | Role | Phone | + +------+ + | Sharon David MD | PCP | | + +------+ + Encounter Details +--------+ + + + + | Date | Type | Department | Care Team | Description | +--------+ + + + + | 04/28/ | Pharmacy | Clinical | | | | 2019 | Visit | Transplant Services | | | | | | [address] | | | | | | [place], | | | | | | [place] [address] | | | | | | [phone] | | | +--------+ + + + [...] | | 2019 | [place] | | [address] | | | | | | [address] | | | | | | [place], [place] | | | | | | [address] | | | | | | [phone] | | | | | | | | +--------+ + + + + | 09/27/ | Telephone-S | Liver Transplant | Vimal Crowe MD | | | 2019 | cheduled | | [address] | | | | | | [facility] [place], | | | | | | [place] [address] | | | | | | [phone] | | | | | | | | +--------+ + + + + | 10/03/ | Appointment | Cardiology | | | | 2019 | | | | | +--------+ + + + + | 10/03/ | Office | Cardiology | Cyril Samuel | | | 2019 | Visit | | MD Pat[place] [address] | | | | | | [address] | | | | | | [place], [place] | | | | | | [address] | | | | | | [phone] | | | | | | | | +--------+ + + + + documented as of this encounter Visit Diagnoses Not on filedocumented in this encounter"
--- OUTSIDE RECORDS SUMMARY | ~2020-07-29 | XMS | Encounter Summary ---
Demographics + + + | Address | [address] | | | [place] [address] | + + + | Home Phone | | + + + | Preferred Language | Unknown | + + + | Marital Status | Single | + + + | Worship Affiliation | NON | + + + [...] [place] | | | | | [address] | | + + + + + Care Team Providers + +------+ + | Care Teacher Of The Hearing Impaired Name | Role | Phone | + +------+ + | Sharon David MD | PCP | | + +------+ + Reason for Visit + +--------+ + | Reason | Onset | Comments | | | Date | | + +--------+ + | Social Work Notes | 01/04/ | | | | 2020 | | + +--------+ + Encounter Details +--------+ + + + + | Date | Type | Department | Care Team | Description | +--------+ + + + + | 01/04/ | Telephone | Liver Transplant | Liv Stephenson, | Social Work Notes | | 2020 | | at [facility] [address] BOOM MASTER [address] | | | | | [address] | [address] | | | | [address] | [place], [place] | | | | | [place], [place] | [address] | | | | | [address] | [phone] | | | | | [phone] | | | +--------+ + + + [...] encounter Miscellaneous Notes Telephone Encounter - Liv Stephenson BOOM MASTER - 01/05/2020 9:03 AM PDTSocial Work Note: Gis Mapping Technician received letter from pt for his donor family. Gis Mapping Technician reviewed, called pt to notify h im of receipt and sent it interoffice mail to [facility] to send to donor family. Pt reported he's doing well, settling into his new apartment which feels "great". He is sti ll working with his therapist who will be setting up virtual sessions in the next few weeks due to the interiano virus. Pt sounds good over the phone and denies any concerns at this time. Plan: BOOM MASTER will continue to be available to provide support and assistance as needed. Liv Stephenson LCSW Liver Transplant Home Service Demonstrator Pager [phone] documented in this encounter Plan of Treatment +--------+ + + + + | Date | Type | Specialty | Care Team | Description | +--------+ + + + + | 08/08/ | Telephone-S | Nephrology | Angélica Chao, | | 2019 | [place] | | [address] [facility] [address] | | | | | | [address] | | | | | | [place], [place] | | | | | | [address] | | | | | | [phone] | | | | | | | | +--------+ + + + + | 09/27/ | Telephone-S | Liver Transplant | Vimal Crowe MD | | | 2019 | [place] | | [address] | | | | | | [address] | | | | | | [place] [address] | | | | | | [phone] | | | | | | | | +--------+ + + + + | 10/03/ | Appointment | Cardiology | | | | 2019 | | | | | +--------+ + + + + | 10/03/ | Office | Cardiology | Cyril Samuel | | | 2019 | Visit | Darren Gomez MD [address] | | | | | | [address] | | | | | | [place], [place] | | | | | | [address] | | | | | | [phone] | | | | | | | | +--------+ + + + + documented as of this encounter Visit Diagnoses Not on filedocumented in this encounter
--- OUTSIDE RECORDS SUMMARY | ~2020-07-29 | XMS | Encounter Summary ---
Demographics + + + | Address | [address] | | | [place] [address] | + + + | Home Phone [...] [place] | | | | | [address] | | + + + + + Care Team Providers + +------+ + | Care Relief Man Name | Role | Phone | + +------+ + | Sharon David MD | PCP | | + +------+ + Reason for Visit + + + | Reason | Comments | + + + | Liver Transplant | high potassium | | Follow Up | | + + + Encounter Details +--------+ + + + + | Date | Type | Department | Care Team | Description | +--------+ + + + + | 12/03/ | Documentati | Clinical | Vimal Crowe MD | Liver Transplant | | 2020 | on | Transplant Services | [address] | Follow Up (high | | | | [address] | [address] [place], | potassium ) | | | | [address] [place], | [place] [address] | | | | | [place] [address] | [phone] | | | | | [phone] | | | +--------+ + + + [...] Telephone Encounter - Judie Mota RN - 12/03/2019 3:21 PM PSTCalled Donell he reports that he was out of several of his meds, including his fludrocotisone. There was severe floo ding in [facility]. He ran out on the restarted on the , he has kayexalate he will take two doses today and repeat a K tomorrow. documented in this encounter Plan of Treatment +--------+ + + + + | Date | Type | Specialty | Care Team | Description | +--------+ + + + + | 08/08/ | Telephone-S | Nephrology | Angélica Chao, | | | 2019 | [place] | | [address] | | | | | | [address] | | | | | | [place], [place] | | | | | | [address] | | | | | | [phone] | | | | | | | | +--------+ + + + + | 09/27/ | Telephone-S | Liver Transplant | Vimal Crowe MD | | 2019 | cheduled | | [address] | | | | | | [address], | | | | | | [place] [address] | | | | | | [phone] | | | | | | | | +--------+ + + + + | 10/03/ | Appointment | Cardiology | | | | 2019 | | | | | +--------+ + + + + | 10/03/ | Office | Cardiology | Cyril Samuel | | | 2019 | Visit | | MD Patricia [address] [facility] | | | | | | [address] | | | | | | [place] | | | | | | [address] | | | | | | [phone] | | | | | | | | +--------+ + + + + documented as of this encounter Visit Diagnoses Not on filedocumented in this encounter"
--- OUTSIDE RECORDS SUMMARY | ~2020-07-29 | XMS | Encounter Summary ---
Demographics + + + | Address | [address] | | | [place] [address] | + + + | Home Phone [...] [place] | | | | | [address] | | + + + + + Care Team Providers + +------+ + | Care Lokie Driver Name | Role | Phone | + +------+ + | Sharon David MD | PCP | | + +------+ + Reason for Visit + +--------+ + | Reason | Onset | Comments | | | Date | | + +--------+ + | MELD Score | 08/03/ | | | | 2019 | | + +--------+ + Encounter Details +--------+ + + + + | Date | Type | Department | Care Team | Description | +--------+ + + + + | 08/03/ | Abstract | Clinical | Vimal Crowe MD | MELD Score | | 2019 | | Transplant Services | [address] | | | | | [address] | [address] [place], | | | | | [place], | [place] [address] | | | | | [place] [address] | [phone] | | | | | [phone] | | | +--------+ + + + [...] as of this encounter Amy Evans - 08/03/2019 4:02 PM PDTEntry verified in [facility] Waitlist. documented in [...] [place] | | | | | | [address] | | | | | | [phone] | | | | | | | | +--------+ + + + + | 09/27/ | Telephone-S | Liver Transplant | Vimal Crowe MD | | | 2019 | [place] | | [address] | | | | | | [address], | | | | | | [place] [address] | | | | | | [phone] | | | | | | | [...] Rd | | | | | | [place], [place] | | | | | | [address] | | | | | | [phone] | | | | | | | | +--------+ + + + + documented as of this encounter Procedures + +--------+ + + + | Procedure Name | Priori | Date/Time | Associated Diagnosis | Comments | | | ty | | | | + +--------+ + + + | LAB OTHER | Routin | 08/02/2019 | | Results for this | | | e | | | procedure are in the | | | | | | results section. | + +--------+ + + + documented in this encounter Results LAB OTHER (08/02/2019) + + + + + + | Component | Value | Ref Range | Performed | Pathologist | | | | | At | Signature | + + + + + + | MELD | 32Comment: Calculated | | CALCULATED | | | | Manually Using [employer] MELD | | MANUALLY | | | | Calculator | | | | + + + + + + + + | Specimen | + + | | + + + + + + + | Performing | Address | City/State/Zipcode | Phone Number | | Organization | | | | + + + + + | CALCULATED | [address] [facility] | [place], [place] | | | MANUALLY | | | | + + + + + documented in this encounter Visit Diagnoses Not on filedocumented in this encounter"
--- OUTSIDE RECORDS SUMMARY | ~2020-07-29 | XMS | Encounter Summary ---
Demographics + + + | Address | [address] | | | [place] [address] | + + + | Home Phone [...] [place] | | | | | [address] | | + + + + + Care Team Providers + +------+ + | Care Publications Designer Name | Role | Phone | + [...] [address] | [address] [place], | 07.05.2020) | | | | [place], | [place] [address] | | | | | [place] [address] | [phone] | | | | | [phone] | | | +--------+ + + + [...] Rd | | | | | | [place] | | | | | | [address] | | | | | | [phone] | | | | | | | | +--------+ + + + + | 09/27/ | Telephone-S | Liver Transplant | Vimal Crowe MD | | | 2019 | [place] | | [address] | | | | | | [facility] [place], | | | | | | [place] [address] | | | | | | [phone] | | | | | | | | +--------+ + + + + | 10/03/ | Appointment | Cardiology | | | | 2019 | | | | | +--------+ + + + + | 10/03/ | Office | Cardiology | Cyril Samuel | | | 2019 | Visit | | MD [place] [address] [facility] | | | | | | [address] | | | | | | [place], [place] | | | | | | [address] | | | | | | [phone] | | | | | | | [...] | + + + + + | [facility] | [address] | [place] | [phone] | | [place] | | | | + + + + + documented in this encounter Visit Diagnoses Not on filedocumented in this encounter"
--- OUTSIDE RECORDS SUMMARY | ~2020-07-29 | XMS | Encounter Summary ---
Demographics + + + | Address | [address] | | | [place] [address] | + + + | Home Phone [...] [place] | | | | | [address] | | + + + + + Care Team Providers + +------+ + | Care Audio Narrator Name | Role | Phone | + +------+ + | Sharon David MD | PCP | | + +------+ + Encounter Details +--------+ + + + + | Date | Type | Department | Care Team | Description | +--------+ + + + + | 05/16/ | Pharmacy | [facility] | | | | 2020 | Visit | [address] | | | | | | [address] | | | | | | [place] [address] | | | | | | [phone] | | | +--------+ + + + [...] Rd | | | | | | [place], [place] | | | | | | [address] | | | | | | [phone] | | | | | | | | +--------+ + + + + | 09/27/ | Telephone-S | Liver Transplant | Vimal Crowe MD | | | 2019 | cheduled | | [address] | | | | | | [address], | | | | | | [place] [address] | | | | | | [phone] | | | | | | | [address] Rd | | | | | | [place] | | | | | | [address] | | | | | | [phone] | | | | | | | | +--------+ + + + + documented as of this encounter Visit Diagnoses Not on filedocumented in this encounter"
--- OUTSIDE RECORDS SUMMARY | ~2020-07-29 | XMS | Encounter Summary ---
Demographics + + + | Address | [address] | | | [place] [address] | + + + | Home Phone [...] [place] | | | | | [address] | | + + + + + Care Team Providers + +------+ + | Care Ice Skating Teacher Name | Role | Phone | + +------+ + | Sharon David MD | PCP | | + +------+ + Reason for Referral Benefits Check (Urgent) +--------+--------+ + + + + | Status | Reason | Specialty | Diagnoses / | Referred By | Referred To | | | | | Procedures | Contact | Contact | +--------+--------+ + + + + | Closed | | Liver | Diagnoses | [place], | [facility] | | | | Transplant | Other | Vimal Arita MD | Coord Liver | | | | | cirrhosis of | [address] | [address] | | | | | liver (HCC) | [address] | [facility] | | | | | Procedures | [address] | [address] [place], | | | | | CONSULT TO | [place], [place] | [place] | | | | | TRANSPLANT | [address] | [address] | | | | | - LIVER | Phone: | Phone: | | | | | | [phone] | [phone] | | | | | | Fax: | Fax: | | | | | | [phone] | [phone] | +--------+--------+ + + + + Reason for Visit + + + | Reason | Comments | + + + | Follow-up visit | | + + + Office Visit - E/M Services (Routine) +--------+--------+ + + + + | Status | Reason | Specialty | Diagnoses / | Referred By | Referred To | | | | | Procedures | Contact | Contact | +--------+--------+ + + + + | Closed | | Hepatology | Diagnoses | [place], | [place], | | | | | Alcoholic | [place]oh[place] | Vimal Arita MD | | | | | cirrhosis of | MD Lei | [address] | | | | | liver with | [address] | | | | | ascites | [address] | [place], | | | | | (HCC) | [place], | [place] [address] | | | | | Chronic | [place] [address] | Phone: | | | | | kidney | Phone: | [phone] | | | | | disease, | [phone] | Fax: | | | | | unspecified | Fax: | [phone] | | | | | CKD stage | [phone] | | | | | | 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 | | | | | | | (HCC) | | | +--------+--------+ + + + + Encounter Details +--------+---------+ + + + | Date | Type | Department | Care Team | Description | +--------+---------+ + + + | 03/19/ | Office | Digestive Health | Vimal Crowe MD | Other cirrhosis of | | 2019 | Visit | Center at [facility] [address] | [address] | liver (HCC) (Primary | | | | [facility] | [address] [place], | Dx); Ascites due to | | | | for [place] and [place] [address] | alcoholic cirrhosis | | | | Healing, [address] | [phone] | (HCC); CKD (chronic | | | | [place], [place] | | kidney disease) | | | | [address] | | stage 3, GFR 30-59 | | | | [phone] | | ml/min (HCC); | | | | | | History of alcohol | | | | | | use disorder | +--------+---------+ + + + Social [...] + + + | Blood Pressure | 147/47 | 03/19/2019 10:54 AM | | | | | PDT | | + + + + + | Pulse | 88 | 03/19/2019 10:54 AM | | | | | PDT | | + + + + + | Temperature | 36.2 C (97.2 F) | 03/19/2019 10:54 AM | | | | | PDT | | + + + + + | Respiratory Rate | 12 | 03/19/2019 10:54 AM | | | | | PDT | | + + + + + | Oxygen Saturation | 100% | 03/19/2019 10:54 AM | | | | | PDT | | + + + + + | Inhaled Oxygen | - | - | | | Concentration | | | | + + + + + | Weight | 81.6 kg (180 lb) | 03/19/2019 10:54 AM | | | | | PDT | | + + + + + | Height | 177.8 cm (5' 10") | 03/19/2019 10:54 AM | | | | | PDT | | + + + + + | Body Mass Index | 25.83 | 03/19/2019 10:54 AM | | | | | PDT | | + + + + + documented in this encounter Patient Instructions Patient Instructions Vimal Crowe MD - 03/19/2019 11:00 AM PDT1. Labs today 2. Will follow up heart echo results- pending 3. Diuretics as per renal. Low sodium diet of < 2grams/day 4. Nutrition referral and PT referral for strengthening through PCP 5. EGD for variceal screening due 06/2019 6. Further recs after above regarding LT eval documented in this encounter Progress Notes Vimal Crowe MD - 03/19/2019 11:00 AM PDT HEPATOLOGY FOLLOW UP PATIENT VISIT Sharon David MD [facility] [address] [place] [address]: [phone] RE: Steffen Duran : [address] David: I had the pleasure of seeing Steffen Duran in the Liver Clinic at [facility] today. Histor y and physical examination was performed. Pertinent laboratory, imaging, pathology results w ere reviewed. HISTORY OF PRESENT ILLNESS/INTEVAL HISTORY: Mr. 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 Since last visit, feeling better. Ascites/leg edema: No worsening ascites. Leg edema improved. CKD stage 3b: per renal ?T2 HRS. Has had hematuria but no proteinuria. Renal has increased his diuretic regimen to 40 mg BID of lasix from 20 mg BID due to sig leg edema at last vis it. Aldactone 100 mg daily Of note TTE with RVSP of 62. Referred to cardiology- there are repeating TTE today and if R VSP still elevated they are planning on R heart cath. Etoh: last use 09/2018: Started relapse prevention program-seen counselor. Last PeTH neg. Prior liver Hx: States in January 2018 was hospitalized with PNA and may have been slightly jaundiced a t that time. Started getting regular f/u after d/c and was eventually diagnosed with liver d isease/cirrhosis. During that time developed ascites which improved on diuretics. No history of EVB, SBP, HE or HCC. Concern of HRS. MRI 10/2018 with no liver lesion. Etoh: Weekends 8-10 beers 30 years, started cutting down. Last use was 06/23/2018 REVIEW OF SYSTEMS: Patient denies fevers, headaches, mouth sores, visual changes, shortness of breath, palpita tions, cough, heartburn, hematuria, rash, dysuria, depression, anxiety. As above, plus wt lo ss. The rest of the review of systems was negative. PAST MEDICAL HISTORY: The patient's medical history, focusing on liver disease is outlined below. (updated today) 1.Hx of alcoholic hepatitis with underlying cirrhosis - Liver Biopsy: none - Treatment: started relapse prevention program 2. Hepatic decompensation: ascites, HRS. No variceal bleed 3. Secondary Dx --Besides liver disease and etoh use d/o denies any other 4. Preventive care - HBV/HAV status: HAV immune, started HBV vaccination - Bone mineral density- Dexa, Vit D - Flu, Pneumovax - Colon cancer screening: no polyps 06/2018 5. Social 4 adult children /: mom and sister from [place]- who can come here No smoking No drug including THC PAST SURGICAL HISTORY: 20 years R leg fx FAMILY HISTORY: no liver disease SOCIAL HISTORY: Please see above ALLERGIES: Doxycycline MEDICATIONS: Current Outpatient Medications Medication Sig furosemide 40 mg oral tablet Take 1 tablet by mouth two times daily. lactulose 10 gram/15 mL oral solution Take 15 mL by mouth two times daily. spironolactone 100 mg oral tablet Take 100 mg by mouth once daily. No current facility-administered medications for this visit. PHYSICAL EXAMINATION: Last Vitals: BP 147/47 (BP Location: Left lower arm, Patient Position: Sitting) | Pulse 88 | Temp 36.2 C (97.2 F) (Oral) | Resp 12 | Ht 1.778 m (5' 10") | Wt 81.6 kg (180 lb) | SpO2 100% | BMI 25.83 kg/m | BSA 2.01 m General Appearance: alert and in no acute distress. HEENT: oropharynx without lesions. Icteric sclerae. Neck: supple, nontender Lungs: clear to auscultation. Heart: RRR w/ +murmur Abdomen: soft, nontender, mild distension Normal bowel sounds. Extremities: improved edema Skin: jaundice Neurological exam nonfocal, no asterixis, alert and oriented without encephalopathy. + spider angiomata, palmar erythema. LABS: @LIVERLABS@ Lab Results Component Value Date TBILI 13.3 (H) 03/11/2019 TBILI 14.0 (H) 02/12/2019 TBILI 13.0 (H) 01/27/2019 AP 149 (H) 03/11/2019 AP 180 (H) 02/12/2019 AP 143 (H) 01/27/2019 TP 8.4 (H) 11/19/2018 DIRBILI 4.0 (H) 02/12/2019 DIRBILI 3.9 (H) 01/22/2019 ALB 3.3 (L) 03/11/2019 ALB 3.1 (L) 02/12/2019 ALB 3.2 (L) 01/27/2019 AST 82 (H) 03/11/2019 AST 88 (H) 02/12/2019 AST 100 (H) 01/27/2019 ALT 45 03/11/2019 ALT 37 02/12/2019 ALT 44 01/27/2019 Lab Results Component Value Date NA 130 03/11/2019 K 4.9 03/11/2019 CL 95 11/19/2018 CL 96 11/19/2018 BICARB 26 11/19/2018 BICARB 26 11/19/2018 BUN 57 03/11/2019 CR 1.75 03/11/2019 GLU 179 03/11/2019 CA 9.7 11/19/2018 CA 9.8 11/19/2018 Lab Results Component Value Date WBC 7.4 03/11/2019 RBC 1.75 (L) 03/11/2019 HB 7.2 (L) 03/11/2019 HCT 19.6 (L) 03/11/2019 MCV 96.1 11/19/2018 MCHC 34.7 11/19/2018 RDW 68.3 (H) 11/19/2018 PLT 65 (L) 03/11/2019 MPV 9.7 11/19/2018 NRBCPERC 0.0 11/19/2018 NRBCABS 0.00 11/19/2018 No HFE mutation found. SIGNIFICANT IMAGING: Note: All available outside records have been reviewed in the course of this visit, and azeb ecially pertinent ones noted above: US limited locally Steatosis, no liver lesion MRI 11/19/2018 IMPRESSION: 1. Cirrhosis with portal hypertension. 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 # Alcoholic cirrhosis w/ hx of alcoholic hepatitis: Cirrhosis c/b ascites/leg edema and pos sible T2 HRS- followed by renal. Last etoh use 06/2018 with neg PeTH test. MELD high and meet s indication for LT however TTE with RVSP of 62. Referred and seen by cards- repeat TTE just done today and if still elevated then they plan on R cath consideration. If does truly have sig pulm HTN then will be barrier to LT if can't be treated. Referral to LT placed. # Ascites/leg edema: Improved today. No sig ascites on exam. Leg edema much improved. Was i ncreased to lasix 40 mg bid and aldactone 50 mg bid at last renal visit. Cr had gone up and will see what today's is and discuss with renal- if worsening may need to go down. 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 As above. Will need to monitor to see if need for SLK comes up. # Variceal screening: EGD no varices 06/2018. Repeat 06/2019 # HCC screening: MRI 10/2018 with no hepatoma # Risk for metabolic bone disease. As patients with chronic liver disease and especially ci rrhosis are at risk for osteoporosis, a bone density scan is recommended. Calcium and Vitami n D check and supplementation are also recommended. # Risk for complications from other liver diseases. Started hepatitis B vaccination. HAV i mmune # Nutritional status, risk for malnutrition: Less than 2 grams of sodium/day Recommend cutt ing down on simple carbohydrates and sugar. Recommend adequate protein intake particularly w ith sources such as fish, chicken, legumes, and dairy products. Protein intake should not be restricted in the setting of hepatic encephalopathy. Recommend exercise at least 3x/day for 30-45 minutes. SUMMARY OF RECOMMENDATIONS: 1. Labs today 2. Will follow up heart echo results regarding pulmonary htn- pending 3. Diuretics as per renal. Low sodium diet of < 2grams/day 4. Nutrition referral and PT referral for strengthening through PCP 5. EGD for variceal screening due 06/2019 6. Further recs after above--LT eval referral placed/insurance auth- if go from cards then will complete rest of eval. Update: --MELD Na increased to 35 today (creatinine has increased) --Repeat TTE resulted: RVSP 62-->32. --8 months sober now. Started relapse prevention program as well --Will touch base with renal regarding diuretics Proceed with LT evaluation Thank you for allowing me to participate in the care of this patient. Please feel free to contact me with any questions regarding the patient's care. Warmest regards. Sincerely, Vimal Crowe MD [employer] Rolling Mill Operatorstraight line press setter [facility] Hepatology documen jeannette in this encounter Plan of Treatment +--------+ + + + + | Date | Type | Specialty | Care Team | Description | +--------+ + + + + | 08/08/ | Telephone-S | Nephrology | Angélica Chao, | | | 2019 | [place] | | [address] | | | | | | [address] | | | | | | [place], [place] | | | | | | [address] | | | | | | [phone] | | | | | | | | +--------+ + + + + | 09/27/ | Telephone-S | Liver Transplant | Vimal Crowe MD | | | 2019 | [place] | | [address] | | | | | | [facility] [place], | | | | | | [place] [address] | | | | | | [phone] | | | | | | | [...] Rd | | | | | | [place] | | | | | | [address] | | | | | | [phone] | | | | | | | | +--------+ + + + + documented as of this encounter Results PHOSPHATIDYLETHANOL (PETH) (03/19/2019 12:15 [...] REG UNIV | | | (PETH) | 16:0/18:1.0-nidnvxjcj-0- | | PTH - [facility] | | | | [id number] | | | | | | phoethanol.Analysis [...] | | | | | d by [employer]. It has not | | | | | | been cleared or | | | | | | approvedby the Food and | | | | | | Drug | | | | | | Administration.Performed | | | | | | at: [facility] [address] | | | | | | [facility]. | | | | | | [place] [address] | | | | + + + + + + + + | Specimen | + + | Blood - Blood | | (substance) | + + + + + + + | Performing | Address | City/State/Zipcode | Phone Number | | Organization | | | | + + + + + | [facility] | [address] | [place], [place] | | | UN[facility] | | [address] | | + + + + + [...] | chromosome and a minor HFE mutation, [id number] ([id number]) on the other | | | [...] Lancet 349:296-297, . 4.) | | | Tro et al. Blood Cell Molecules and Disease 23:269-276, 1996. | | | This test was developed and its performance characteristics determined | | | by the [facility]. It has not been cleared or | | | approved by the Food and Drug Administration. FDA approval is not | | | required for clinical use of this test, and therefore validation was | | | done as required under the requirements of the Clinical Laboratory | | | Improvement Act of 1988. The [facility] is a | | | fully licensed and/or accredited clinical laboratory under CLIA, CAP, | | | and the [facility]. Reviewed and electronically signed by Martha | | | MD Lexa 03/30/2019 3:29 PM | | + + + + + + + + | Performing | Address | City/State/Zipcode | Phone Number | | Organization | | | | + + + + + | [facility] | [address] | [place] [address] | | | DIAGNOSTIC | [address] [...] | No Mutation | No Mutation | [facility] | | | OSIS([id number]) | | | [...] | + + + | INTERPRETATION: | [facility] | | | DIAGNOSTIC | | Hemochromatosis [...] 3.) Vance ERAZO. Gastroenterology 120:718-725, 2000. 4.) Aishwarya OLIVEIRA. | | | Hospital Practice 34:55-74,1998. 5.) Luis Eduardo Kwong and Aishwarya. Am | | | J. Clin Path(2001) 115:439-47 This test was developed and its | | | performance characteristics determined by the [facility] | | | [facility]. It has not been cleared or | | | approved by the U.S. Food and Drug Administration. FDA approval is | | | not required for clinical use of this test, and therefore validation | | | was done as required under the requirements of the Clinical Laboratory | | | Improvement Act of 1988. The [facility] | | | [facility] is a fully licensed and/or accredited | | | clinical laboratory under CLIA, CAP, and the [facility]. | | | Reviewed and electronically signed by Martha Lindquist MD 03/23/2019 | | | 2:03 PM | | + + + + + + + + | Performing | Address | City/State/[facility] | Phone Number | | Organization | | | | + + + + + | [facility] | [address] | [place] [address] | | | DIAGNOSTIC | [address] [...] | + + + + + | [facility] | [address] | [place] [address] | | | SERVICES, CORE | MOISES [...] | + + + + + | [facility] | [address] | [place] [address] | | | SERVICES, CORE | MOISES [...] | + + + + + | [facility] | [address] | [place] [address] | | | SERVICES, CORE | MOISES [...] [facility] | [address] | [place] [address] | | | SERVICES, CENTER FOR | [...] | | | LABORATORY | | | PANAMANIAN | | | SERVICES, | | | [...] MDRD equation recommended by the National | [facility] | | Kidney Disease Education Program. [...] | + + + + + | [facility] | [address] | [place] [address] | | | SERVICES, [facility] | | | | | HEALTH + HEALING | | | | + + + + + documented in this encounter Visit Diagnoses + + | Diagnosis | + + | Other cirrhosis of liver (HCC) - Primary | + + | Ascites due to alcoholic cirrhosis (HCC) | + + | CKD (chronic kidney disease) stage 3, GFR 30-59 ml/min Chronic kidney disease, Stage | | III (moderate) | + + | History of alcohol use disorder | + + documented in this encounter
--- OUTSIDE RECORDS SUMMARY | ~2020-07-29 | XMS | Encounter Summary ---
Demographics + + + | Address | [address] | | | [place] [address] | + + + | Home Phone [...] [place] | | | | | [address] | | + + + + + Care Team Providers + +------+ + | Care Pouncer Name | Role | Phone | + +------+ + | Sharon David MD | PCP | | + +------+ + Encounter Details +--------+ + + + + | Date | Type | Department | Care Team | Description | +--------+ + + + + | 08/24/ | Pharmacy | Specialty Pharmacy | | | | 2019 | Visit | Services [address] | | | | [address] | | | | | | [place], [place] | | | | | | [address] | | | | | | [phone] | | | +--------+ + + + [...] | | 2019 | [place] | | [address] | | | | | | [address] | | | | | | [place], [place] | | | | | | [address] | | | | | | [phone] | | | | | | | | +--------+ + + + + | 09/27/ | Telephone-S | Liver Transplant | Vimal Crowe MD | | | 2019 | c[place] | | [address] | | | | | | [facility] [place], | | | | | | [place] [address] | | | | | | [phone] | | | | | | | | +--------+ + + + + | 10/03/ | Appointment | Cardiology | | | | 2019 | | | | | +--------+ + + + + | 10/03/ | Office | Cardiology | Cyril Samuel | | | 2019 | Visit | | MD Patricia [address] | | | | | | [address] | | | | | | [place], [place] | | | | | | [address] | | | | | | [phone] | | | | | | | | +--------+ + + + + documented as of this encounter Visit Diagnoses Not on filedocumented in this encounter"
--- OUTSIDE RECORDS SUMMARY | ~2020-07-29 | XMS | Encounter Summary ---
Demographics + + + | Address | [address] | | | [place] [address] | + + + | Home Phone [...] Author + + + | Author | [facility] | + + + | Organization | [facility] | + + + | [...] [place] | | | | | [address] | | + + + + + Care Team Providers + +------+ + | Care School Cafeteria Cook Head Name | Role | Phone | + +------+ + | Sharon David MD | PCP | | + +------+ + Encounter Details +--------+ + + + + | Date | Type | Department | Care Team | Description | +--------+ + + + + | 01/04/ | Abstract | Clinical | Vimal Crowe MD | | | 2019 | | Transplant Services | [address] | | | | | [address] | [address] [place], | | | | | [place], | [place] [address] | | | | | [place] [address] | [phone] | | | | | [phone] | | | +--------+ + + + [...] | | | | | | [place], [place] | | | | | | [address] | | | | | | [phone] | | | | | | | | +--------+ + + + + | 09/27/ | Telephone-S | Liver Transplant | Vmial Crowe MD | | | 2019 | [place] | | [address] | | | | | | [facility] [address] [place], | | | | | | [place] [address] | | | | | | [phone] | | | | | | | | +--------+ + + + + | 10/03/ | Appointment | Cardiology | | | | 2019 | | | | | +--------+ + + + + | 10/03/ | Office | Cardiology | Cyril Samuel | | | 2019 | Visit | Darren Gomez MD [address] | | | | | | [address] | | | | | | [place], [place] | | | | | | [address] | | | | | | [phone] | | | | | | | | +--------+ + + + + documented as of this encounter Procedures + +--------+ + + + | Procedure Name | Priori | Date/Time | Associated Diagnosis | Comments | | | ty | | | | + +--------+ + + + | LIVER TRANSPLANT | Routin | 01/04/2020 | | Results for this | | POST PANEL (EXT | e | 9:50 AM | | procedure are in the | | RESULTS) | | PDT | | results section. | + +--------+ + + + documented in this encounter Results LIVER TRANSPLANT POST PANEL (EXT RESULTS) (01/04/2020 9:50 AM PDT) + + + + + [...] + + + | GLUCOSE, | 204 (A) | 65 - 110 mg/dL | [...] + + + + | CREATININE | 1.71 | mg/dL | [facility] | | | [...] + + + + | MAGNESIUM,P | 1.5 | mg/dL | [facility] | | | [...] + + + + | HEMATOCRIT | 32.8 | % | [facility] | | | [...] + + + | PLATELET | 68 | K/cu mm | [facility] | | [...] [address] | [place] | [phone] | | [place] | | | | + + + + + documented in this encounter Visit Diagnoses Not on filedocumented in this encounter"
--- OUTSIDE RECORDS SUMMARY | ~2020-07-29 | XMS | Encounter Summary ---
Demographics + + + | Address | [address] | | | [place] [address] | + + + | Home Phone [...] Author + + + | Author | [facility] | + + + | Organization | [facility] | + + + | Address | Unknown | + + + | Phone | Unavailable | + + + Support + + + + + | Name | Relationship | Address | Phone | + + + + + | Doreen Manley | ECON | [address] | | | | | [place] | | | | | [address] | | + + + + + Care Team Providers + +------+ + | Care Mosaic Worker Name | Role | Phone | + +------+ + | Sharon David MD | PCP | | + +------+ + Encounter Details +--------+ + + + + | Date | Type | Department | Care Team | Description | +--------+ + + + + | 03/10/ | Farm Products Shipper | Nephrology & | Alicia Canchola, | Chronic kidney | | 2019 | | Hypertension at [facility] | DO [address] | disease, stage III | | | | [address] | [address] | (moderate) (HCC) | | | | [address] | [place], [place] | (Primary Dx) | | | | [place], [address]rd floor | [address] | | | | | [place], [place] | [phone] | | | | | [address] | | | | | | [phone] | | | +--------+ + + + [...] 2019 | [place] | | [address] | | | | | | [address] | | | | | | [place], [place] | | | | | | [address] | | | | | | [phone] | | | | | | | | +--------+ + + + + | 09/27/ | Telephone-S | Liver Transplant | Vimal Crowe MD | | | 2019 | [place] | | [address] | | | | | | [address], | | | | | | [place] [address] | | | | | | [phone] | | | | | | | | +--------+ + + + + | 10/03/ | Appointment | Cardiology | | | | 2019 | | | | | +--------+ + + + + | 10/03/ | Office | Cardiology | Cyril Samuel | | | 2019 | Visit | | MD Patricia [address] | | | | | | [address] | | | | | | [place], [place] | | | | | | [address] | | | | | | [phone] | | | | | | | | +--------+ + + + + documented as of this encounter Visit Diagnoses + + | Diagnosis | + + | Chronic kidney disease, stage III (moderate) - Primary Chronic kidney disease, Stage | | III (moderate) | + + documented in this encounter"
--- OUTSIDE RECORDS SUMMARY | ~2020-07-29 | XMS | Encounter Summary ---
Demographics + + + | Address | [address] | | | [place] [address] | + + + | Home Phone [...] [place] | | | | | [address] | | + + + + + Care Team Providers + +------+ + | Care Airplane First Officer Name | Role | Phone | + +------+ + | Sharon David MD | PCP | | + +------+ + Encounter Details +--------+ + + + + | Date | Type | Department | Care Team | Description | +--------+ + + + + | 02/22/ | Abstract | Clinical | Vimal Crowe MD | | | 2019 | | Transplant Services | [address] | | | | | [address] | [address] [place], | | | | | [place], | [place] [address] | | | | | [place] [address] | [phone] | | | | | [phone] | | | +--------+ + + + [...] | | | | | | [place], [place] | | | | | | [address] | | | | | | [phone] | | | | | | | | +--------+ + + + + | 09/27/ | Telephone-S | Liver Transplant | Vimal Crowe MD | | | 2019 | [place] | | [address] | | | | | | [facility] [address] [place], | | | | | | [place] [address] | | | | | | [phone] | | | | | | | | +--------+ + + + + | 10/03/ | Appointment | Cardiology | | | | 2019 | | | | | +--------+ + + + + | 10/03/ | Office | Cardiology | Cyril Samuel | | | 2019 | Visit | Darren Gomez MD [address] | | | | | | [address] | | | | | | [place], [place] | | | | | | [address] | | | | | | [phone] | | | | | | | | +--------+ + + + + documented as of this encounter Procedures + +--------+ + + + | Procedure Name | Priori | Date/Time | Associated Diagnosis | Comments | | | ty | | | | + +--------+ + + + | LIVER TRANSPLANT | Routin | 02/22/2020 | | Results for this | | POST PANEL (EXT | e | 8:30 AM | | procedure are in the | | RESULTS) | | PDT | | results section. | + +--------+ + + + documented in this encounter Results LIVER TRANSPLANT POST PANEL (EXT RESULTS) (02/22/2020 8:30 AM PDT) + + + + + + | Component | Value | Ref Range | Performed | Pathologist | | | | | At | Signature | + + + + + + | SODIUM, | 135 | mmol/L | [facility] | | | PLASMA | | | LAB - | | | (LAB) | | | [place] | | + + + + + + | POTASSIUM, | 5.0 | mmol/L | [facility] | | | [...] + + + + | GLUCOSE, | 253 (A) | 65 - 110 mg/dL | [...] + + + + | CREATININE | 2.00 | mg/dL | [facility] | | | [...] + + + | ALK PHOS | 65 | U/L | [facility] | | | [...] + + + | URIC ACID, | 7.3 | mg/dL | [facility] | | | [...] + + + + | PLATELET | 97 | K/cu mm | [facility] | | [address] | [place] | [phone] | | [place] | | | | + + + + + documented in this encounter Visit Diagnoses Not on filedocumented in this encounter"
--- OUTSIDE RECORDS SUMMARY | ~2020-07-29 | XMS | Encounter Summary ---
Demographics + + + | Address | [address] | | | [place] [address] | + + + | Home Phone | | + + + | Preferred Language | Unknown | + + + | Marital Status | Single | + + + | Sabianism Affiliation | Unknown | + + + | Race | White | + + + | Ethnic Group | Not or | + + + Author + + + | Author | [facility] | | | and [place] | + + + | Organization | [facility] | | | and [place] [...] Providers + +------+ + | Care Head Golf Professional Name | Role | Phone | + +------+ + | Sharon David MD | PCP | | + +------+ + Encounter Details +--------+ + + + + | Date | Type | Department | Care Team | Description | +--------+ + + + + | 06/05/ | Orders Only | [facility] | Anel, [place], | Uncomplicated | | 2019 | | [facility] | MD [address] | alcohol abuse; | | | | CARE FLOOR [address] | [place] [address] | Thrombocytopenia | | | | [address] | [phone] | ([facility]); Nutritional | | | | [place], [place] | | anemia | | | | [address] | | | | | | [phone] | | | +--------+ + + + + Social History + +-------+ +--------+------+ | Tobacco Use | Types | Packs/Day | Years | Date | | | | | Used | | + +-------+ +--------+------+ | Never Smoker | | | | | + +-------+ +--------+------+ + + | Comments: pt reports "1 chew a day." | + + + + + | Sex [...] [address] | | | | | | [place] [address] | | | | | | [phone] | | | | | | | | +--------+---------+ + + + + +------+--------+ + + | Name | Type | Priori | Associated Diagnoses | Order Schedule | | | | ty | | | + +------+--------+ + + | HIV 1 and 2 Ab, | Lab | Routin | Uncomplicated | Expected: | | Reflex | | e | alcohol abuse | 07/18/2018, Expires: | | | | | | 07/18/2019 | + +------+--------+ + + | CBC with | Lab | Routin | Thrombocytopenia | Expected: | | Differential | | e | (HCC) Nutritional | 2019, Expires: | | | | | anemia | 09/15/2019 | + +------+--------+ + + documented as of this encounter Visit Diagnoses + + | Diagnosis | + + | Uncomplicated alcohol abuse Alcohol abuse, unspecified | + + | Thrombocytopenia (HCC) Thrombocytopenia, unspecified | + + | Nutritional anemia Unspecified deficiency anemia | + + documented in this encounter
--- OUTSIDE RECORDS SUMMARY | ~2020-07-29 | XMS | Encounter Summary ---
Demographics + + + | Address | [address] | | | [place] [address] | + + + | Home Phone [...] [place] | | | | | [address] | | + + + + + Care Team Providers + +------+ + | Care Car Filler Name | Role | Phone | + +------+ + | Sharon David MD | PCP | | + +------+ + Encounter Details +--------+ + + + + | Date | Type | Department | Care Team | Description | +--------+ + + + + | 05/05/ | MyChart | Liver Transplant | Vimal Crowe MD | RE: Donell Duran | | 2020 | Encounter | at [facility] [address] | | | | | [address] | [address] [place], | | | | | Physician's | [place] [address] | | | | | Pavilion, 2nd floor | [phone] | | | | | [place], [place] | | | | | | [address] | | | | | | [phone] | | | +--------+ + + + [...] Rd | | | | | | [place], [place] | | | | | | [address] | | | | | | [phone] | | | | | | | | +--------+ + + + + | 09/27/ | Telephone-S | Liver Transplant | Vimal Crowe MD | | | 2019 | [place] | | [address] | | | | | | [address], | | | | | | [place] [address] | | | | | | [phone] | | | | | | | [...] [address] | | | | | | [place], [place] | | | | | | [address] | | | | | | [phone] | | | | | | | | +--------+ + + + + documented as of this encounter Visit Diagnoses Not on filedocumented in this encounter"
--- OUTSIDE RECORDS SUMMARY | ~2020-07-29 | XMS | Encounter Summary ---
Demographics + + + | Address | [address] | | | [place] [address] | + + + | Home Phone [...] [place] | | | | | [address] | | + + + + + Care Team Providers + +------+ + | Care Ice Cutter Name | Role | Phone | + +------+ + | Sharon David MD | PCP | | + +------+ + Encounter Details +--------+------+ + + + | Date | Type | Department | Care Team | Description | +--------+------+ + + + | 09/10/ | Lab | Laboratory at [facility] | | Liver transplant | | 2019 | | [address] | | status (HCC) | | | | Loop Physician's | | | | | | [place], 3rd floor | | | | | | [place], [place] | | | | | | [address] | | | | | | [phone] | | | +--------+------+ + + + [...] Rd | | | | | | [facility] [place] | | | | | | [address] | | | | | | [phone] | | | | | | | | +--------+ + + + + | 09/27/ | Telephone-S | Liver Transplant | Vimal Crowe MD | | | 2019 | [place] | | [address] | | | | | | [address], | | | | | | [place] [address] | | | | | | [phone] | | | | | | | [...] Rd | | | | | | [place], [place] | | | | | | [address] | | | | | | [phone] | | | | | | | | +--------+ + + + + documented as of this encounter Procedures + +--------+ + + + | Procedure Name | Priori | Date/Time | Associated Diagnosis | Comments | | | ty | | | | + +--------+ + + + | CBC AND AUTO DIFF | Routin | 09/10/2019 | Liver transplant | Results for this | | | e | 8:01 AM | status (HCC) | procedure are in the | | | | PST | | results section. | + +--------+ + + + | CBC, WITH | Routin | 09/10/2019 | Liver transplant | Results for this | | DIFFERENTIAL | e | 8:01 AM | status (HCC) | procedure are in the | | | | PST | | results section. | + +--------+ + + + | COMPLETE METABOLIC | Routin | 09/10/2019 | Liver transplant | Results for this | | SET | e | 8:01 AM | status (HCC) | procedure are in the | | (NA,K,CL,CO2,BUN,CRE | | PST | | results section. | | AT,GLUC,CA,AST,ALT,B | | | | | | KEV TOTAL,ALK | | | | | | PHOS,ALB,PROT TOTAL) | | | | | + +--------+ + + + | TACROLIMUS, WHOLE | Routin | 09/10/2019 | Liver transplant | Results for this | | BLOOD | e | 8:01 AM | status (HCC) | procedure are in the | | | | PST | | results section. | + +--------+ + + + | PHOSPHORUS, PLASMA | Routin | 09/10/2019 | Liver transplant | Results for this | | | e | 8:01 AM | status (HCC) | procedure are in the | | | | PST | | results section. | + +--------+ + + + | BILIRUBIN DIRECT | Routin | 09/10/2019 | Liver transplant | Results for this | | | e | 8:01 AM | status (HCC) | procedure are in the | | | | PST | | results section. | + +--------+ + + + | URIC ACID, PLASMA | Routin | 09/10/2019 | Liver transplant | Results for this | | | e | 8:01 AM | status (HCC) | procedure are in the | | | | PST | | results section. | + +--------+ + + + | MAGNESIUM, PLASMA | Routin | 09/10/2019 | Liver transplant | Results for this | | | e | 8:01 AM | status (HCC) | procedure are in the | | | | PST | | results section. | + +--------+ + + + documented in this encounter Results CBC AND AUTO DIFF (09/10/2019 8:01 AM PST) + + + [...] + + + | RED CELL | 2.48 (L) | 4.50 - 6.00 | [facility] [...] + + + + | HEMATOCRIT | 24.9 (L) | 41.0 - 53.0 % | [facility] | | | | | | LABORATORY | | | | | | SERVICES, | | | | | | CORE | | + + + + + + | MCV | 100.4 (H) | 80.0 - 100.0 fL | [facility] | | | | | | LABORATORY | | | | | | SERVICES, | | | | | | CORE | | + + + + + + | MCHC | 30.9 (L) | 32.0 - 36.0 | [facility] | | | | | g/dL | LABORATORY | | | | | | SERVICES, | | | | | | CORE | | + + + + + + | RDW SD | 62.8 (H) | 35.1 - 46.3 fL | [facility] | | | | | | LABORATORY | | | | | | SERVICES, | | | | | | CORE | | + + + + + + | PLATELET | 127 (L) | 150 - 400 K/cu | [facility] | | | COUNT | | mm | LABORATORY | | | | | | SERVICES, | | | | | | CORE | | + + + + + + | MPV | 9.0 (L) | 9.7 - 12.3 fL | [...] + + + + | LYMPHOCYTE | 20.6 | 18.0 - 42.0 % | [facility] | | | % | | | LABORATORY | | | | | | SERVICES, | | | | | | CORE | | + + + + + + | MONOCYTE % | 6.6 | 3.5 - 9.0 % | [facility] [...] + + + | BASO % | 0.9 | 0.0 - 2.0 % | [facility] [...] + + + + | LYMPHOCYTE | 0.94 (L) | 1.00 - 4.80 | [facility] [...] | + + + + + | [facility] | [address] | [place] [address] | | | SERVICES, CORE | MOISES [...] [facility] | [address] | [place] [address] | | | SERVICES, CORE | MOISES [...] | Test performed by immunoassay using Palafox Soup Mixer i2000. . | [facility] | | Samples [...] | + + + + + | [facility] | [address] | [place] [address] | | | SERVICES, SPECIAL | PARK [...] [facility] | [address] | [place] [address] | | | CLAUDIA, ARTIS | MOISES [...] [facility] | [address] | [place] [address] | | | SERVICES, CORE | PARK [...] 2.6 mg/dL | [facility] | | | MARLEENMA | | | [...] | + + + + + | [facility] | [address] | [place] [address] | | | CLAUDIA, ARTIS | MOISES [...] | | | LABORATORY | | | AFGHAN | | | SERVICES, | | | [...] MDRD equation recommended by the National | [facility] | | Kidney Disease Education Program. Estimated GFR Interpretive | LABORATORY | | Information: <60 mL/min/1.73 sq m Chronic Kidney | SERVICES, [facility] [place] | | Disease <15 mL/min/1.73 sq m [...] + + | Performing | Address | City/State/[facility] | Phone Number | | Organization | | | | + + + + + | [facility] | [address] | [place] [address] | | | CLAUDIA, ARTIS | [address] | | | + + + + + documented in this encounter Visit Diagnoses + + | Diagnosis | + + | Liver transplant status (HCC) | + + documented in this encounter"
--- OUTSIDE RECORDS SUMMARY | ~2020-07-29 | XMS | Encounter Summary ---
Demographics + + + | Address | [address] | | | [place] [address] | + + + | Home Phone [...] [place] | | | | | [address] | | + + + + + Care Team Providers + +------+ + | Care Top Precipitator Operator Helper Name | Role | Phone | + +------+ + | Sharon David MD | PCP | | + +------+ + Encounter Details +--------+ + + + + | Date | Type | Department | Care Team | Description | +--------+ + + + + | 12/27/ | Pharmacy | [facility] | | | | 2020 | Visit | [address] | | | | | | [address] | | | | | | [place] [address] | | | | | | [phone] | | | +--------+ + + + [...] [place] | | | | | | [address] | | | | | | [phone] | | | | | | | | +--------+ + + + + | 09/27/ | Telephone-S | Liver Transplant | Vimal Crowe MD | | | 2019 | [place]uled | | [address] | | | | | | [address], | | | | | | [place] [address] | | | | | | [phone] | | | | | | | [...] [address] | | | | | | [place] | | | | | | [address] | | | | | | [phone] | | | | | | | | +--------+ + + + + documented as of this encounter Visit Diagnoses Not on filedocumented in this encounter"
--- OUTSIDE RECORDS SUMMARY | ~2020-07-29 | XMS | Encounter Summary ---
Demographics + + + | Address | [address] | | | [place] [address] | + + + | Home Phone [...] [place] | | | | | [address] | | + + + + + Care Team Providers + +------+ + | Care Rn Ed Name | Role | Phone | + [...] | [address] | [address] [place], | | | | | [place], | [place] [address] | | | | | [place] [address] | [phone] | | | | | [phone] | | | +--------+ + + + [...] Rd | | | | | | [place], [place] | | | | | | [address] | | | | | | [phone] | | | | | | | | +--------+ + + + + | 09/27/ | Telephone-S | Liver Transplant | Vimal Crowe MD | | | 2019 | [place] | | [address] | | | | | | [facility] [address] [place], | | | | | | [place] [address] | | | | | | [phone] | | | | | | | | +--------+ + + + + | 10/03/ | Appointment | Cardiology | | | | 2019 | | | | | +--------+ + + + + | 10/03/ | Office | Cardiology | Cyril Samuel | | | 2019 | Visit | Darren Gomez MD [address] | | | | | | [address] | | | | | | [place], [place] | | | | | | [address] | | | | | | [phone] | | | | | | | [...] [address] | [place] | [phone] | | [place] | | | | + + + + + documented in this encounter Visit Diagnoses Not on filedocumented in this encounter"
--- OUTSIDE RECORDS SUMMARY | ~2020-07-29 | XMS | Encounter Summary ---
Demographics + + + | Address | [address] | | | [place] [address] | + + + | Home Phone [...] [place] | | | | | [address] | | + + + + + Care Team Providers + +------+ + | Care Deliver Driver Name | Role | Phone | + +------+ + | Sharon David MD | PCP | | + +------+ + Encounter Details +--------+ + + + + | Date | Type | Department | Care Team | Description | +--------+ + + + + | 09/22/ | Client Project Coordinator | Nephrology & | Angélica Chao, | | | 2018 | | Hypertension at [facility] | [address] | | | | | [address] | [address] | | | | | Loop Physician's | [place], [place] | | | | | [place], [facility] floor | [address] | | | | | [place], [place] | [phone] | | | | | [address] | | | | | | [phone] | | | +--------+ + + + [...] this encounter Miscellaneous Notes Telephone Encounter - Marie Lopez - 10/15/2019 4:01 PM PST Future Appointments Provider Department Dept Phone Center 10/26/2019 8:00 AM Fast Track Supervisor Fine Grading/Medical Oncology at [facility] [phone] [facility] 11/09/2019 10:00 AM Fast Track Supervisor Fine Grading/Medical Oncology at [facility] [phone] [facility] elephone Encounter - Angélica Alva MD - 09/22/2019 11:45 AM PSTSigned, thank you! Angélica Chao MD [facility] Division of Nephrology and Hypertension Office tel: [phone] A M PSTTelephone Encounter - Marie Lopez - 09/22/2019 11:40 AM PSTPlease review and sign Ar anesp orders. Please send a message to the [facility] [place] when order is signed for MA's to F/U on appt scheduling with [facility] HEM Infusion Order/s Placed in this encounter: -Infusion Plan Aranesp 40 mcg every 2 weeks Marie Lopez CMA elephone Encounter - Marie Friend - 09/22/2019 11:31 AM PSTFormatting of this note might be different from the orig inal. Angélica Chao MD [facility] [place] Ia all - can you please refer this pt to start aranesp. He would prefer to do this at [facility] on [facility] (as opposed to external clinic). He should have 40 mcg sq every two weeks. He had replete iron stores in Jul (within 90 days). I can sign orders when ready. Thank you, JWeiss documented in this encount er Plan of Treatment +--------+ + + + + | Date | Type | Specialty | Care Team | Description | +--------+ + + + + | 08/08/ | Telephone-S | Nephrology | Angélica Chao, | | | 2019 | [place] | | [address] [facility] | | | | | | [address] | | | | | | [place], [place] | | | | | | [address] | | | | | | [phone] | | | | | | | | +--------+ + + + + | 09/27/ | Telephone-S | Liver Transplant | Vimal Crowe MD | | | 2019 | [place] | | [address] | | | | | | [address], | | | | | | [place] [address] | | | | | | [phone] | | | | | | | | +--------+ + + + + | 10/03/ | Appointment | Cardiology | | | | 2019 | | | | | +--------+ + + + + | 10/03/ | Office | Cardiology | Cyril Samuel | | | 2019 | Visit | | MD Patricia [address] | | | | | | [address] | | | | | | [place], [place] | | | | | | [address] | | | | | | [phone] | | | | | | | | +--------+ + + + + documented as of this encounter Visit Diagnoses Not on filedocumented in this encounter"
--- OUTSIDE RECORDS SUMMARY | ~2020-07-29 | XMS | Encounter Summary ---
Demographics + + + | Address | [address] | | | [place] [address] | + + + | Home Phone [...] | + + + + + | Droeen Manley | ECON | [address] | | | | | [place] | | | | | [address] | | + + + + + Care Team Providers + +------+ + | Care Computer Support Technician Name | Role | Phone | [...] | [address] | [address] [place], | | | | | [place], | [place] [address] | | | | | [place] [address] | [phone] | | | | | [phone] | | | +--------+ + + + [...] Rd | | | | | | [place], [place] | | | | | | [address] | | | | | | [phone] | | | | | | | | +--------+ + + + + | 09/27/ | Telephone-S | Liver Transplant | Vimal Crowe MD | | | 2019 | [place] | | [address] | | | | | | [facility] [address] [place], | | | | | | [place] [address] | | | | | | [phone] | | | | | | | | +--------+ + + + + | 10/03/ | Appointment | Cardiology | | | | 2019 | | | | | +--------+ + + + + | 10/03/ | Office | Cardiology | Cyril Samuel | | | 2019 | Visit | Darren Gomez MD [address] | | | | | | [address] | | | | | | [place], [place] | | | | | | [address] | | | | | | [phone] | | | | | | | [...] Results LIVER TRANSPLANT POST PANEL (EXT RESULTS) (07/19/2020 11:24 AM PDT) + + + + + [...] + + + + | GLUCOSE, | 215 | | [facility] | | | PLASMA [...] + + + | CREATININE | 2.58 | mg/dL | [facility] | | | [...] + | URIC ACID, | 7.5 | mg/dL | [facility] | | | PLASMA | | | LAB - | | | (LAB) | | | [place] | | + + + + + + | WHITE CELL | 6.8 | K/cu mm | [facility] | | [...] + + + + | HEMATOCRIT | 31.9 | % | [facility] | | | | | | LAB - | | | | | | [place] | | + + + + + + | PLATELET | 128 | K/cu mm | [facility] | | [address] | [place] | [phone] | | [place] | | | | + + + + + documented in this encounter Visit Diagnoses Not on filedocumented in this encounter"
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
--- OUTSIDE RECORDS SUMMARY | ~2020-07-29 | XMS | Encounter Summary ---
Demographics + + + | Address | [address] | | | [place] [address] | + + + | Home Phone [...] [place] | | | | | [address] | | + + + + + Care Team Providers + +------+ + | Care Special Procedure Technologist Name | Role | Phone | + +------+ + | Sharon David MD | PCP | | + +------+ + Encounter Details +--------+------+ + + + | Date | Type | Department | Care Team | Description | +--------+------+ + + + | 08/31/ | Lab | [facility] at [facility] | | Liver transplant | | 2019 | | [address] | | status (HCC) | | | | [facility] | | | | | | [place], 3rd floor | | | | | | [place], [place] | | | | | | [address] | | | | | | [phone] | | | +--------+------+ + + + [...] | | | | | | [facility] [place] | | | | | | [address] | | | | | | [phone] | | | | | | | | +--------+ + + + + | 09/27/ | Telephone-S | Liver Transplant | Vimal Crowe MD | | | 2019 | [place] | | [address] | | | | | | [address], | | | | | | [place] [address] | | | | | | [phone] | | | | | | | [...] [address] | | | | | | [place], [place] | | | | | | [address] | | | | | | [phone] | | | | | | | | +--------+ + + + + documented as of this encounter Procedures + +--------+ + + + | Procedure Name | Priori | Date/Time | Associated Diagnosis | Comments | | | ty | | | | + +--------+ + + + | CBC AND AUTO DIFF | Routin | 08/31/2019 | Liver transplant | Results for this | | | e | 7:27 AM | status (HCC) | procedure are in the | | | | PST | | results section. | + +--------+ + + + | CBC, WITH | Routin | 08/31/2019 | Liver transplant | Results for this | | DIFFERENTIAL | e | 7:27 AM | status (HCC) | procedure are in the | | | | PST | | results section. | + +--------+ + + + | COMPLETE METABOLIC | Routin | 08/31/2019 | Liver transplant | Results for this | | SET | e | 7:27 AM | status (HCC) | procedure are in the | | (NA,K,CL,CO2,BUN,CRE | | PST | | results section. | | AT,GLUC,CA,AST,ALT,B | | | | | | KEV TOTAL,ALK | | | | | | PHOS,ALB,PROT TOTAL) | | | | | + +--------+ + + + | TACROLIMUS, WHOLE | Routin | 08/31/2019 | Liver transplant | Results for this | | BLOOD | e | 7:27 AM | status (HCC) | procedure are in the | | | | PST | | results section. | + +--------+ + + + | PHOSPHORUS, PLASMA | Routin | 08/31/2019 | Liver transplant | Results for this | | | e | 7:27 AM | status (HCC) | procedure are in the | | | | PST | | results section. | + +--------+ + + + | BILIRUBIN DIRECT | Routin | 08/31/2019 | Liver transplant | Results for this | | | e | 7:27 AM | status (HCC) | procedure are in the | | | | PST | | results section. | + +--------+ + + + | URIC ACID, PLASMA | Routin | 08/31/2019 | Liver transplant | Results for this | | | e | 7:27 AM | status (HCC) | procedure are in the | | | | PST | | results section. | + +--------+ + + + | MAGNESIUM, PLASMA | Routin | 08/31/2019 | Liver transplant | Results for this | | | e | 7:27 AM | status (HCC) | procedure are in the | | | | PST | | results section. | + +--------+ + + + documented in this encounter Results CBC AND AUTO DIFF (08/31/2019 7:27 AM PST) + + + + + + | Component | Value | Ref Range | Performed | Pathologist | | | | | At | Signature | + + + + + + | WHITE CELL | 7.18 | 3.50 - 10.80 | [facility] | [...] + + + + | HEMATOCRIT | 23.6 (L) | 41.0 - 53.0 % | [...] + + + | RDW SD | 65.7 (H) | 35.1 - 46.3 fL | [facility] | | | | | | LABORATORY | | | | | | SERVICES, | | | | | | CORE | | + + + + + + | PLATELET | 181 | 150 - 400 K/cu | [facility] [...] + + + + | NEUTROPHIL | 74.4 (H) | 50.0 - 70.0 % | [facility] | | | % | | | LABORATORY | | | | | | SERVICES, | | | | | | CORE | | + + + + + + | LYMPHOCYTE | 14.9 (L) | 18.0 - 42.0 % | [...] + + + + | NEUTROPHIL | 5.35 | 1.80 - 7.70 | [facility] | | | # | | K/cu mm | LABORATORY | | | | | | SERVICES, | | | | | | CORE | | + + + + + + | LYMPHOCYTE | 1.07 | 1.00 - 4.80 | [facility] | [...] + + + | BASO # | 0.09 | 0.00 - 0.10 | [...] | + + + + + | [facility] | [address] | [place] [address] | | | SERVICES, CORE | MOISES [...] + + + | [facility] | [address] | [place] [address] | | | SERVICES, CORE | PARK [...] | Test performed by immunoassay using [employer] i2000. . | [facility] | | Samples [...] [facility] | [address] | [place] [address] | | | SERVICES, SPECIAL | PARK [...] [facility] | [address] | [place] [address] | | | SERVICES, CORE | PARK [...] [facility] | [address] | [place] [address] | | | SERVICES, CORE | PARK [...] | + + + + + | [facility] | [address] | [place] [address] | | | SERVICES, CORE | [address] | | | + + + [...] | | | LABORATORY | | | CONGOLESE | | | SERVICES, | | | [...] | + + + + + | [facility] | [address] | [place] [address] | | | SERVICES, ARTIS | [address] | | | + + + + + documented in this encounter Visit Diagnoses + + | Diagnosis | + + | Liver transplant status (HCC) | + + documented in this encounter"
--- OUTSIDE RECORDS SUMMARY | ~2020-07-29 | XMS | Encounter Summary ---
Demographics + + + | Address | [address] | | | [place] [address] | + + + | Home Phone | | + + + | Preferred Language | Unknown | + + + | Marital Status | Single | + + + | Caodaism Affiliation | NON | + + + [...] [place] | | | | | [address] | | + + + + + Care Team Providers + +------+ + | Care Horse Trainer Name | Role | Phone | + [...] | [address] | [address] [place], | | | | | [place], | [place] [address] | | | | | [place] [address] | [phone] | | | | | [phone] | | | +--------+ + + + [...] [address] | | | | | | [place], [place] | | | | | | [address] | | | | | | [phone] | | | | | | | | +--------+ + + + + | 09/27/ | Telephone-S | Liver Transplant | Vimal Crowe MD | | | 2019 | [place] | | [address] | | | | | | [facility] [address] [place], | | | | | | [place] [address] | | | | | | [phone] | | | | | | | | +--------+ + + + + | 10/03/ | Appointment | Cardiology | | | | 2019 | | | | | +--------+ + + + + | 10/03/ | Office | Cardiology | Cyril Samuel | | | 2019 | Visit | Darren Gomez MD [address] | | | | | | [address] | | | | | | [place], [place] | | | | | | [address] | | | | | | [phone] | | | | | | | [...] + | [facility] | | | [phone] | | | | | | | [place] | | | | + +---------+ + + documented in this encounter Visit Diagnoses Not on filedocumented in this encounter"
--- OUTSIDE RECORDS SUMMARY | ~2020-07-29 | XMS | Encounter Summary ---
Demographics + + + | Address | [address] | | | [place] [address] | + + + | Home Phone [...] [place] | | | | | [address] | | + + + + + Care Team Providers + +------+ + | Care Telecommunications Switch Technician Name | Role | Phone | + +------+ + | Sharon David MD | PCP | | + +------+ + Encounter Details +--------+ + + + + | Date | Type | Department | Care Team | Description | +--------+ + + + + | 01/24/ | Abstract | Clinical | Vimal Crowe MD | | | 2019 | | Transplant Services | [address] | | | | | [address] | [address] [place], | | | | | [place], | [place] [address] | | | | | [place] [address] | [phone] | | | | | [phone] | | | +--------+ + + + [...] Rd | | | | | | [place], [place] | | | | | | [address] | | | | | | [phone] | | | | | | | | +--------+ + + + + | 09/27/ | Telephone-S | Liver Transplant | Vimal Crowe MD | | | 2019 | [place] | | [address] | | | | | | [facility] [address] [place], | | | | | | [place] [address] | | | | | | [phone] | | | | | | | | +--------+ + + + + | 10/03/ | Appointment | Cardiology | | | | 2019 | | | | | +--------+ + + + + | 10/03/ | Office | Cardiology | Cyril Saumel | | | 2019 | Visit | Darren Gomez MD [address] | | | | | | [address] | | | | | | [place], [place] | | | | | | [address] | | | | | | [phone] | | | | | | | | +--------+ + + + + documented as of this encounter Procedures + +--------+ + + + | Procedure Name | Priori | Date/Time | Associated Diagnosis | Comments | | | ty | | | | + +--------+ + + + | LIVER TRANSPLANT | Routin | 01/25/2020 | | Results for this | | POST PANEL (EXT | e | 10:42 AM | | procedure are in the | | RESULTS) | | PDT | | results section. | + +--------+ + + + documented in this encounter Results LIVER TRANSPLANT POST PANEL (EXT RESULTS) (01/25/2020 10:42 AM PDT) + + + + + [...] + + + + | GLUCOSE, | 230 (A) | 65 - 110 mg/dL | [facility] | | | PLASMA | | | LAB - | | | (LAB) | | | [place] | | + + + + + + | BUN, PLASMA | 41 | mg/dL | [facility] | | | (LAB) | | | LAB - | | | | | | [place] | | + + + + + + | CREATININE | 2.06 | mg/dL | [facility] | | | PLASMA | | | LAB - | | | (LAB) | | | [place] | | + + + + + + | CALCIUM, | 9.8 | mg/dL | [facility] | | | [...] + + + | ALK PHOS | 64 | U/L | [facility] | | | [...] + | URIC ACID, | 7.9 | mg/dL | [facility] | | | [...] + + + + | HEMATOCRIT | 34.9 | % | [facility] | | | | | | LAB - | | | | | | [place] | | + + + + + + | HEMOGLOBIN | 11.7 (A) | 13.5 - 17.5 | [facility] [...] + + + + | TACROLIMUS | 5.3 | ng/mL | [facility] | | | [...] [address] | [place] | [phone] | | [place] | | | | + + + + + documented in this encounter Visit Diagnoses Not on filedocumented in this encounter"
--- OUTSIDE RECORDS SUMMARY | ~2020-07-29 | XMS | Encounter Summary ---
Demographics + + + | Address | [address] | | | [place] [address] | + + + | Home Phone [...] [place] | | | | | [address] | | + + + + + Care Team Providers + +------+ + | Care Education And Training Coordinator Name | Role | Phone | + +------+ + | Sharon David MD | PCP | | + +------+ + Encounter Details +--------+ + + + + | Date | Type | Department | Care Team | Description | +--------+ + + + + | 09/25/ | Pharmacy | Outpatient Retail | | | | 2019 | Visit | [facility] | | | | | | [address] | | | | | | [address] [place], [place] | | | | | | [address] | | | | | | [phone] | | | +--------+ + + + [...] Rd | | | | | | [place], [place] | | | | | | [address] | | | | | | [phone] | | | | | | | | +--------+ + + + + | 09/27/ | Telephone-S | Liver Transplant | Vimal Crowe MD | | | 2019 | c[place] | | [address] | | | | | | [facility] [place], | | | | | | [place] [address] | | | | | | [phone] | | | | | | | [...] [place] | | | | | | [address] | | | | | | [phone] | | | | | | | | +--------+ + + + + documented as of this encounter Visit Diagnoses Not on filedocumented in this encounter"
--- OUTSIDE RECORDS SUMMARY | ~2020-07-29 | XMS | Encounter Summary ---
Demographics + + + | Address | [address] | | | [place] [address] | + + + | Home Phone [...] [place] | | | | | [address] | | + + + + + Care Team Providers + +------+ + | Care Hvac Sheet Metal Installer Helper Name | Role | Phone | + +------+ + | Sharon David MD | PCP | | + +------+ + Encounter Details +--------+ + + + + | Date | Type | Department | Care Team | Description | +--------+ + + + + | 09/19/ | Pharmacy | Specialty Pharmacy | | | | 2019 | Visit | Services [address] | | | | | [address] | | | | | | [place], [place] | | | | | | [address] | | | | | | [phone] | | | +--------+ + + + [...] | | 2019 | [place] | | [address] | | | | | | [address] | | | | | | [place], [place] | | | | | | [address] | | | | | | [phone] | | | | | | | | +--------+ + + + + | 09/27/ | Telephone-S | Liver Transplant | Vimal Crowe MD | | | 2019 | c[place] | | [address] | | | | | | [facility] [place], | | | | | | [place] [address] | | | | | | [phone] | | | | | | | | +--------+ + + + + | 10/03/ | Appointment | Cardiology | | | | 2019 | | | | | +--------+ + + + + | 10/03/ | Office | Cardiology | Cyril Samuel | | | 2019 | Visit | | MD Patricia [address] | | | | | | [address] | | | | | | [place], [place] | | | | | | [address] | | | | | | [phone] | | | | | | | | +--------+ + + + + documented as of this encounter Visit Diagnoses Not on filedocumented in this encounter"
--- OUTSIDE RECORDS SUMMARY | ~2020-07-29 | XMS | Encounter Summary ---
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 Professor Name | Role | Phone | + [...] Closed | | Cardiology | Diagnoses | Txc Trans | Car Echo | | | | | Alcoholic | Coord Liver | [facility] [address] | | | | | cirrhosis of | [address] | | | | | liver with | Sanjay [address] | | | | | ascites | Moises Oliveira | Ponce | | | | | (HCC) | [place], [place] | Building, 2nd | | | | | Ascites due | [address] | floor | | | | | to alcoholic | Phone: | [place], [place] | | | | | cirrhosis | [phone] | [address] | | | | | (HCC) | Fax: | Phone: | | | | | Internal | [phone] | [phone] | | | | | organ | | | | | | | deficiencies | | | | | | | | | | | | | | Preoperative | | | | | | | examination | | | | | | | Procedures | | | | | | | STRESS | | | | | | | DOBUTAMINE | | | | | | | ECHOCARDIOGR | | | | | | | AM, ADULT | | | +--------+--------+ + + + + Reason for Visit + +--------+ + | Reason | Onset | Comments | | | Date | | + +--------+ + | Pre Transplant | 03/19/ | Intake | | Workup | 2019 | | + +--------+ + Encounter Details +--------+ + + + + | Date | Type | Department | Care Team | Description | +--------+ + + + + | 03/19/ | Telephone | Clinical | Desi Perdomo, | Pre Transplant | | 2019 | | Transplant Services | RN [address] | Workup (Intake) | | | | [address] | [address] | | | | | Moises Oliveira [place], | [place], [place] | | | | | [place] [address] | [address] | | | | | [phone] | | | +--------+ + + + [...] Telephone Encounter - Elizabeth Garcia RN - 04/21/2019 4:25 PM PDTPhase: Inpatient Evaluati on. Ok per [place] [place] proceed [place], auth in place through 05/03/19. Vane leonardo sent to team. Patient presented to ED following cardiac stress testing during outpatient liver transplant evaluation, is being admitted. Per [facility], we have authorization to complete this evaluati on as an inpatient through 04/23/2019. The workup below is to be done as medically necessary; However insurance approval for cox splant evaluation is still pending. Phase: Insurance Approval- URGENT, INPATIENT EVALUATION Patient referred by the Inpatient Hepatology Team, Dr. Rodriguez/Dr. Reese for an URGENT Inpatie nt liver transplant evaluation. Patient sees Dr. Crowe for Hepatology. Name: Donell Lawson Diagnosis: ETOH/ HRS MELD: 35 Unit Location: Emergency Room ([facility]) Required Labs- please order ALL labs at [facility] even if done at another center. EVALUATION LABS COMPLETED 04/21/2019 - repeat urine microscopy (21 red cells ? Fulminant Hepatic Workup ?? Copper, Urine Routine, COLLECT NOW, X1 24 hour collection or spot DIAGNOSTIC STUDIES Abdominal Imaging, choose: ?? CT Abdomen with and without Contrast ?? MRI Abdomen with and without Contrast (SCHEDULED for 04/22/19 as outpatient) ?? US complete with dopplers ?? X-Ray Chest 2 View Routine (SCHEDULED 04/22/19 as outpatient) ?? 12 Lead ECG Routine - DONE 04/21/19 ?? Transthoracic Echocardiogram - DONE 04/21/19 ? Failed DSE 04/21/19 ? Colonoscopy (not on fulminants, others need baseline screening, or f/u study) VACCINES ?? PCV13 or PPSV23 ?? Tdap injection ?? Hepatitis A vaccine ?? Hepatitis B vaccination OTHER Consults ?? Cardiology Consult ?? Transplant Social Work, NOTIFED ?? Transplant Nutrition, NOTIFIED ?? Transplant Pharmacy, DONE ?? Liver Transplant Surgeon, DONE ?? Transplant Psychology/Psychiatry Consult NEEDED ?? Oral & Maxillofacial Surgery [phone] As NEEDED ? For SLK workup: ? Hep C PCR Quant lab (if has been on dialysis) ? Cholesterol ? US pelvis with post void residual ddendum Note - Desi Momin RN - 03/27/2019 2:45 PM PDT Addended by: DESI PERDOMO on: 03/27/2019 02:45 PM Modules accepted: Orders elephone Encounter - Desi Perdomo RN - 03/27/2019 2:[address] Crowe, get MRI instead of CT due to elevated creatinine. ddendum Note - Desi Perdomo RN - 03/27/2019 10:14 AM PDT Addended by: DESI PERDOMO on : 03/27/2019 10:14 AM Modules accepted: Orders, SmartSet elephone Encounter - Desi Perdomo RN - 03/27/2019 9:45 AM PDTPhase: Ready for scheduling. Ok per [place] [place], routed to [facility] for scheduling. I called the patient and they chose 04/21/19 & 04/22/19. I reviewed the transplant process. I advised the patient that per [facility] Liver Transplant Pro gram Policy, they are expected to have complete abstinence from smoking (no tobacco, no samuel lamont, no e-cigarettes), no alcohol, tobacco products, illegal drugs, and nonprescribed narc otics; that urine drug, nicotine, and alcohol screening will be done at the time of the live r transplant evaluation at [facility] and that a patient will not be listed for a liver transplant if these test positive, or if there is concern for an addiction problem. Patient was informed that educational material will be mailed to them and to fill out the f orms in this packet such as the nutrition questionnaire, social support agreement, advance d irective and to obtain a dental consult. PCP should assist with the vaccination history form . Patient was advised to bring a support person to the evaluation consultations. Patient was notified that the schedule of testing and consults will be arranged by office staff and barbara led. Patient was given the opportunity to ask questions and all questions were answered. Of fice phone number provided to patient if further questions arise. elephone Encounter - Desi Perdomo RN - 03/19/2019 3:31 PM PDTLiver Transplant Referral Nurse Intake: Phase, Insurance approval-URGENT High MELD, routed to [facility] to obtain auth for evals. RUDD: Patient seen by Dr. Crowe 03/19/19 to review if patient is a candidate for liver transp lant evaluation. 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 To push the MRI or CT scan from ...... New Referral, Notes State: Referred by: Dr. 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 Unit: Colonoscopy done: yes, 07/20/18 Other Studies: EGD 07/20/[address] study (Cr elevated or contrast/iodine allergy) : yes-depends on GFR On Beta Terence: no If the patient is a candidate for the transplant evaluation, the following studies are denton cated per protocol: Abd CT, CXR, -03/18 [facility], -having repeat Echo 03/19/19-[facility], DSE, Labs, Saw Lhewa on 03/19/19, Surgical Consult, Nutrition Consult, Pharmacy Consult and Social Work Consult elephone Encounter - Vale Garvin - 03/19/2019 2:09 PM PDTDemographic Intake I would now like to ask you a series of questions; they will not affect your candidacy. 1. Are you a [place] Citizen: Yes 2. Are you a resident: N/A a. If no, did you travel to the [place] primarily for organ transplant: N/A 3. Have you been in the : No 4. Have you worked with any other transplant centers: No a. If Yes, Where: 5. Do you live alone: Yes a. If no, how many other household members do you live with: 6. What is your Marital Status: single a. What is your Partner s name (If applicable): 7. Do you currently work: No 8. 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 What is the highest level of education you have completed: Some college 10. Current Height: 5'11'' 11. Current Weight: 181lbs 12. What is your preferred spoken language: Eritrean 13. What is your preferred written language: Eritrean 14. Are you on Dialysis: No 15. Do you have a Preferred lab: Document in Demographics under Clinical Information 16. Do you have a Preferred Pharmacy: Document in Demographics under Clinical Information elephone Encounter - Vale Garvin - 03/19/2019 1:57 PM PDTTitle: Liver Transplantation Patient Selection Criteria I. Indications for Liver Transplantation A. Acute Hepatic Failure 1. Viral 2. Drug/toxin-induced 3. Trauma 4. 5. Metabolic 6. Other unknown B. Chronic Active Hepatitis with Cirrhosis 1. Autoimmune 2. Viral 3. Non-alcoholic steatohepatitis 4. Veno-occlusive disease 5. Budd-Chiari syndrome 6. Choledochal cyst with liver failure 7. Polycystic liver with associated renal failure 8. Failure of a previously transplanted liver C. Metabolic Disorders 1. Carlo's disease 2. Hemochromatosis 3. Alpha-1 antitrypsin deficiency 4. Tryosinemia 5. Glycogen storage disease 6. Blyer's disease 7. Galactosemia 8. Protoporphyria 9. Primary oxalosis 10. Familial hypercholesterolemia 11. Sea-blue histiocytosis syndrome 12. Amyloidosis D. Advanced Chronic Liver Disease 1. Primary biliary cirrhosis 2. Secondary biliary cirrhosis 3. Primary sclerosing cholangitis 4. Secondary sclerosing cholangitis 5. Alcoholic cirrhosis 6. Cryptogenic cirrhosis E. Metabolic Liver Disease with Cirrhosis 1. Carlo's disease 2. Hemochromatosis 3. Alpha-1 antitrypsin deficiency 4. Protoporphyria 5. Biliary atresia: extrahepatic, intrahepatic 6. Alagille syndrome 7. Caroli's disease 8. Congenital hepatic fibrosis 9. Crigler-Alda syndrome 10. Urea Cycle Disorders F. Hepatobiliary Malignancy 1. Hepatoblastoma 2. Hepatocellular carcinoma 3. Metastatic neuroendocrine tumor 4. Hilar Cholangiocarcinoma 5. Hepatic Epithelioid hemangioendothelioma G. Other acute or chronic liver disease that liver transplant is considered the appropriate treatment. II. Absolute Contraindications to Liver Transplantation A. Active sepsis outside the biliary tract. B. Presence of significant organ system failure other than liver, kidney except in the sett ing of fulminant hepatic failure. C. Inability to accept the procedure, understand its nature and cooperate in the medical ca re required following transplantation. D. Angiosarcoma. E. Malignancy outside the liver except neuroendocrine tumors. F. Multi-vessel CAD with greater than 50% occlusion of significant coronary arteries, and p rior CAD requiring CABG. G. Active alcoholism or active substance abuse, including nicotine. III. Conditions that Increase the Risk with Liver Transplantation A. Age over 65. Over this age must have no other significant comorbidities. B. Advanced cardiopulmonary disease or multi-organ system diseases precluding survival of t ransplant. C. Morbid obesity. In general, significant obesity, as indicated by a Body Mass Index (BMI) > 45. 1. Patients with liver disease may have significant fluid overload that could falsely incre ase the BMI in a non-meaningful way. Such patients will be evaluated on an individual basis by the liver transplant team to determine if obesity is a true contraindication to transplan t in that patient. 2. Obesity itself is a significant co-morbid medical condition, and may be a contributing f actor to a denial for liver transplant listing even if the BMI is below 45, for example in t he context of co-morbid diabetes mellitus, hypertension, dyslipidemia, etc. D. Psychosocial or financial issues that could result in inadequate post-transplant care. IV. Reference: [facility] Liver Transplant Program Protocol Handbook, page 25-26. documented in this enc ounter Plan of Treatment +--------+ + + + + | Date | Type | Specialty | Care Team | Description | +--------+ + + + + | 08/08/ | Telephone-S | Nephrology | Angélica Chao, | | | 2019 | [place] | | [address] | | | | | | [address] | | | | | | [place], [place] | | | | | | [address] | | | | | | [phone] | | | | | | | | +--------+ + + + + | 09/27/ | Telephone-S | Liver Transplant | Vimal Crowe MD | | | 2019 | cheduled | | [address] | | | | | | [address], | | | | | | [place] [address] | | | | | | [phone] | | | | | | | | +--------+ + + + + | 10/03/ | Appointment | Cardiology | | | | 2019 | | | | | +--------+ + + + + | 10/03/ | Office | Cardiology | Cyril Samuel | | | 2019 | Visit | Darren Gomez MD [address] | | | | | | [address] | | | | | | [place], [place] | | | | | | [address] | | | | | | [phone] | | | | | | | | +--------+ + + + + documented as of this encounter Procedures + +--------+ + + + | Procedure Name | Priori | Date/Time | Associated Diagnosis | Comments | | | ty | | | | + +--------+ + + + | STRESS DOBUTAMINE | Routin | 04/21/2019 | Alcoholic | Results for this | | ECHOCARDIOGRAM, | e | 1:03 PM | cirrhosis of liver | procedure are in the | | ADULT | | PDT | with ascites (HCC) | results section. | | | | | Ascites due to | | | | | | alcoholic cirrhosis | | | | | | (HCC) Internal | | | | | | organ deficiencies | | | | | | Preoperative | | | | | | examination | | + +--------+ + + + documented in this encounter Results STRESS DOBUTAMINE ECHOCARDIOGRAM, ADULT (04/21/2019 1:03 PM PDT) + + | Specimen | + + | | + + + + + | Narrative | Performed At | + + + | [facility] | [facility] DEPT OF | | [facility] Adult Echocardiography Laboratory [address] | CARDIOLOGY | | [place], [place] [address] Ph: | | | Pt Name: DOUG LAWSON | | | Study Date/Time 04/21/2019 / 1:03:04 PMMRN: [id number] | | | Most recent prior: 03/19/2019Acc #: [id number] | | | No. previous echos: 1DOB: 1965 54 years | | | Heart Rate: bpmHeight: 71.0 in | | | Blood Pressure: / mm/HgWeight: 186.0 lb | | | Gender: MBSA: 2.04 m | | | Order ID: [id number] Study | | | [facility] Duc Medley [facility]ENTERReferring Provider: Vimal Arita | | | LhewaModalities Performed: Exercise stress echo and Definity | | | contrast.Study Quality: good (with contrast)Imaging Limitations:Exam | | | Indication: Preoperative EvaluationHistory: cirrhosisCurrent | | | medications: Exercise Stress Echocardiographic Report | | | + | | | ---------+Final Impressions: | | | | | | | | | | | | | | | 1. At baseline left ventricular systolic function is normal. | | | 2. There were no ischemic ECG changes during | | | stress. There were frequent PAC during stress and two sustained runs | | | of SVT during recovery. 3. At peak stress | | | the LV function augments normally (See comments below). 4. Echo | | | negative for ischemia. | | | 5. Low risk dobutamine stress echo with > 85% | | | age predicted maximal heart rate. | | | | | | | | | | | | + | | | + Peak Stress ECG Findings: There were no ischemic ECG | | | changes during stress. There were frequent PAC during stress and two | | | sustained runs of SVT during recovery.Echocardiographic Findings: The | | | quality of echo imaging is good (with contrast). There were no | | | stress-induced wall motion abnormalities. Echo negative for ischemia. | | | At baseline left ventricular systolic function is normal. At peak | | | stress the LV function augments normally. At recovery the LV function | | | returned to baseline. Due to poor endocardial definition, ultrasound | | | contrast was used (Definity). Baseline All segments are normal. | | | 0=Unable to score, 1=Normal, 2=Hypokinetic, | | | 3=Akinetic, 4=Dyskinetic, 5=Aneurysmal Int-Low | | | All segments are normal. 0=Unable to score, 1=Normal, 2=Hypokinetic, | | | 3=Akinetic, | | | 4=Dyskinetic, 5=Aneurysmal Peak All segments are normal. 0=Unable to | | | score, 1=Normal, 2=Hypokinetic, | | | 3=Akinetic, 4=Dyskinetic, 5=Aneurysmal Recovery All segments are | | | normal. 0=Unable to score, 1=Normal, 2=Hypokinetic, | | | 3=Akinetic, 4=Dyskinetic, | | | 5=Aneurysmal Supervising RN: Cecille Bustos RNSupervising Physician: | | | [id number] Piotr Hassan MDReport electronically signed by: [id number] | | | Piotr Hassan MD (04/21/2019, 3:16:36 PM)Fellow participating in | | | diagnosis: Hiram Hemphill Final | | | | | |Peak All segments are normal. 0=Unable to score, 1=Normal, 2=Hypokinetic, | | | 3=Akinetic, 4=Dyskinetic, 5=Aneurysmal | | | | | |Recovery All segments are normal. 0=Unable to score, 1=Normal, 2=Hypokinetic, | | | 3=Akinetic, 4=Dyskinetic, 5=Aneurysmal | | | | | | | | |Supervising RN: Cecille Bustos RN | | |Supervising Physician: [id number] Piotr Hassan MD | | |Report electronically signed by: [id number] Piotr Hassan MD (04/21/2019, 3:16:36 PM) | | |Fellow participating in diagnosis: Hiram Hemphill | | | | | | | | | | | | | | | | | | | | | | | | Final | | + + + + + | Procedure Note | + + | Interface, Cardiology Results - 04/21/2019 3:16 PM [facility] | | [facility] Echocardiography Laboratory [address] [place] [address] | | [place], [place] [address] Pt Name: DOUG | | CHAN LAWSON Study Date/Time 04/21/2019 / 1:03:04 PMMRN: [id number] | | Most recent prior: 03/19/2019Acc #: [id number] No. previous echos: 1DOB: | | 1965 54 years Heart Rate: bpmHeight: 71.0 in Blood | | Pressure: / mm/HgWeight: 186.0 lb Gender: MBSA: 2.04 | | m | | Order ID: [id number] [facility] Duc | | Galindo [facility]ENTERReferring Provider: Vimal Hebertodalities Performed: Exercise stress echo | | and Definity contrast.Study Quality: good (with contrast)Imaging Limitations:Exam | | Indication: Preoperative EvaluationHistory: cirrhosisCurrent medications: Exercise | | Stress Echocardiographic | | Report+ +Fi | | nal Impressions: | | | | 1. At baseline left ventricular | | systolic function is normal. 2. There were no ischemic ECG changes | | during stress. There were frequent PAC during stress and two sustained runs of SVT | | during recovery. 3. At peak stress the LV function augments normally | | (See comments below). 4. Echo negative for ischemia. | | 5. Low risk dobutamine stress echo with > 85% age predicted maximal | | heart rate. | | | | + + Peak | | Stress ECG Findings: There were no ischemic ECG changes during stress. There were | | frequent PAC during stress and two sustained runs of SVT during | | recovery.Echocardiographic Findings: The quality of echo imaging is good (with | | contrast). There were no stress-induced wall motion abnormalities. Echo negative for | | ischemia. At baseline left ventricular systolic function is normal. At peak stress the | | LV function augments normally. At recovery the LV function returned to baseline. Due to | | poor endocardial definition, ultrasound contrast was used (Definity). Baseline All | | segments are normal. 0=Unable to score, 1=Normal, 2=Hypokinetic, | | 3=Akinetic, 4=Dyskinetic, 5=AneurysmalInt-Low All segments are normal. | | 0=Unable to score, 1=Normal, 2=Hypokinetic, 3=Akinetic, | | 4=Dyskinetic, 5=AneurysmalPeak All segments are normal. 0=Unable to score, 1=Normal, | | 2=Hypokinetic, 3=Akinetic, 4=Dyskinetic, | | 5=AneurysmalRecovery All segments are normal. 0=Unable to score, 1=Normal, | | 2=Hypokinetic, 3=Akinetic, 4=Dyskinetic, 5=Aneurysmal | | Supervising RN: Cecille Bustos, RNSupervising Physician: [id number] Piotr Meekort | | electronically signed by: [id number] Piotr Hassan MD (04/21/2019, 3:16:36 PM)Fellow | | participating in diagnosis: Hiram Hemphill Final | | | |Peak Stress ECG Findings: There were no ischemic ECG changes during stress. There | |were frequent PAC during stress and two sustained runs of SVT during recovery. | |Echocardiographic Findings: The quality of echo imaging is good (with contrast). | |There were no stress-induced wall motion abnormalities. Echo negative for ischemia. | |At baseline left ventricular systolic function is normal. At peak stress the LV | |function augments normally. At recovery the LV function returned to baseline. Due to | |poor endocardial definition, ultrasound contrast was used (Definity). | | | |Baseline All segments are normal. 0=Unable to score, 1=Normal, 2=Hypokinetic, | | 3=Akinetic, 4=Dyskinetic, 5=Aneurysmal | | | |Int-Low All segments are normal. 0=Unable to score, 1=Normal, 2=Hypokinetic, | | 3=Akinetic, 4=Dyskinetic, 5=Aneurysmal | | | |Peak All segments are normal. 0=Unable to score, 1=Normal, 2=Hypokinetic, | | 3=Akinetic, 4=Dyskinetic, 5=Aneurysmal | | | |Recovery All segments are normal. 0=Unable to score, 1=Normal, 2=Hypokinetic, | | 3=Akinetic, 4=Dyskinetic, 5=Aneurysmal | | | | | |Supervising RN: Cecille Bustos RN | |Supervising Physician: [id number] Piotr Hassan MD | |Report electronically signed by: [id number] Piotr Hassan MD (04/21/2019, 3:16:36 PM) | |Fellow participating in diagnosis: Hiram Hemphill | | | | | | | | | | | | | | | | Final | + + + + + + + | Performing | Address | City/State/Zipcode | Phone Number | | Organization | | | | + + + + + | [facility] | [address] | [place], [place] | | | CARDIOLOGY | [address] | [address] | | + + + + + ECG TRACING FOR STRESS ECHOCARDIOGRAM (04/21/2019 1:01 PM PDT) + + + + + + | Component | Value | Ref Range | Performed | Pathologist | | | | | At | Signature | + + + + + + | CLARIFICATI | This report contains | | [facility] | | | ON | Stress ECG Tracings, | | OF | | | | Observations and | | CARDIOLOGY | | | | Preliminary Results. | | | | | | For Test Report and | | | | | | Interpretation: Go to | | | | | | the Stress | | | | | | Echocardiogram Order, | | | | | | located under the CARDS | | | | | | tab in EPIC. | | | | + + + + + + | INTERP | . | | [facility] | | | | | | OF | | | | | | CARDIOLOGY | | + + + + + + | CONCLUSION | . | | [facility] | | | [...] + + + + + | [facility] | [address] | [place], [place] | | | CARDIOLOGY | [address] | [address] | | + + + + + PSA TOTAL, SCREENING, SERUM (04/21/2019 8:39 AM PDT) + +-------+ + + + | Component | Value | Ref Range | Performed | Pathologist | | | | | At | Signature | + +-------+ + + + | PSA,TOTAL,S | <0.06 | <=3.50 ng/mL | [facility] | | | CREENING | | | LABORATORY | | | [...] | + + + + + | [facility] | [address] | [place] [address] | | | SERVICES, CORE | [address] | | | + + + + + RUBELLA IGG AB, SERUM (04/21/2019 8:39 AM PDT) + +--------+ + + + | Component | Value | Ref Range | Performed | Pathologist | | | | | At | Signature | + +--------+ + + + | RUBELLA IGG | Immune | Immune | [facility] | | | | | | [facility] - | | | INTERPRETAT | | | [place] | | | ION | | | | | + +--------+ + + + + + | Specimen | + + | Blood - Blood | | (substance) | + + + + + + + | Performing | Address | City/State/Zipcode | Phone Number | | Organization | | | | + + + + + | [facility] - | [address] | [place] [address] | | | [place] | | | | + + + + + MUMPS IGG AB, SERUM (04/21/2019 8:39 AM PDT) + + + + + + | Component | Value | Ref Range | Performed | Pathologist | | | | | At | Signature | + + + + + + | MUMPS IGG | >300.0Comment: | AU/mL | [facility] | | | AB TITER | INTERPRETIVE | | REG UNIV | | | | INFORMATION: Mumps Ab, | | PTH - INTFC | | | | IgG by MIHIR 8.9 AU/mL | | | | | | or less .... Negative - | | | | | | No significant level of | | | | | | | | | | | | detectable | | | | | | IgG mumps virus antibody | | | | | | 9.0-10.9 AU/mL | | | | | | ....... Equivocal - | | | | | | Repeat testing in - | | | | | | | | | | | | days may be | | | | | | helpful 11.0 AU/mL or | | | | | | greater: Positive - IgG | | | | | | antibody to mumps | | | | | | | | | | | | virus detected, | | | | | | which may indicate | | | | | | | | | | | | a current or past | | | | | | exposure/ | | | | | | | | | | | | immunization to mumps | | | | | | virus. The best | | | | | [...] | | | | | | same time.Performed by | | | | | | [facility],[address] | | | | | | [place] | | | | | | [address] | | | | | | [email or web address]. | | | | | | Harley [...] [facility] | [address] | [place], [place] | | | UNIV PTH - INTFC | | [address] | | + + + + + MEASLES (RUBEOLA) IGG (04/21/2019 8:39 AM PDT) + + + + + + | Component | Value | Ref Range | Performed | Pathologist | | | | | At | Signature | + + + + + + | MEASLES IGG | >300.0Comment: | AU/mL | [facility] | | | RESULT | INTERPRETIVE | | REG UNIV | | | | INFORMATION: Measles | | PTH - INTFC | | | | (Rubeola) Antibody, IgG | | | | | | 24.9 AU/mL or | | | | | | less........ Negative - | | | | | | No significant level | | | | | | | | | | | | of | | | | | | detectable measles | | | | | | (rubeola) | | | | | | | | | | | | IgG antibody. | | | | | | 25.0-29.9 AU/mL | | | | | | .......... Equivocal - | | | | | | Repeat testing in | | | | | | | | | | | | 10-14 days | | | | | | may be helpful. 30.0 | | | | | | AU/mL or greater .... | | | | | | Positive - IgG antibody | | | | | | to | | | | | | | | | | | | measles (rubeola) | | | | | | detected | | | | | | | | | | | | which may indicate a | | | | | | current | | | | | | | | | | | | or past | | | | | | exposure/immunization | | | | | | | | | | | | to | | | | | | measles (rubeola). The | | | | | | [...] | | | | | | same time.Performed by | | | | | | [address] | | | | | | Gurwinder Brown, [facility],[place] | | | | | | [address] | | | | | | [phone].[facility]. | | | | | | [facility], Harley Coates MD, | | | | [...] + + | [facility] | [address] | [place], [place] | | | UNIV PTH - INTFC | | [address] | | + + + + + STRONGYLOIDES IGG AB, SERUM (04/21/2019 8:39 AM PDT) + + + + + + | Component | Value | Ref Range | Performed | Pathologist | | | | | At | Signature | + + + + + + | STRONGYLOID | 1.0 (H)Comment: | <=0.9 IV | [facility] | | | ES AB, IGG | INTERPRETIVE | | REG UNIV | | | | INFORMATION: | | PTH - INTFC | | | | Strongyloides Ab, IgG by | | | | | | NISSA 0.9 IV or | | | | | | less....... Negative - | | | | | | No significant | | | | | | | | | | | | level of Strongyloides | | | | | | IgG | | | | | | | | | | | | antibody detected. | | | | | | 1.0 | | | | | | IV................Equivo | | | | | | julia - The Strongyloides | | | | | | IgG | | | | | | | | | | | | antibody result is | | | | | | borderline and | | | | | | | | | | | | therefore | | | | | | inconclusive. Recommend | | | | | | | | | | | | retesting | | | | | | the patient in 2-4 | | | | | | weeks, | | | | | | if | | | | | | clinically indicated. | | | | | | 1.1 IV or greater ... | | | | | | Positive - IgG | | | | | | antibodies to | | | | | | | | | | | | Strongyloides | | | | | | detected, which | | | | | | | | | | | | may suggest current | | | | | | or past | | | | | | | | | | | | infection. | | | | | | False-positive results | | | | | | may occur with prior | | | | | | exposure to other | | | | | | helminth infections. | | | | | | Testing low-prevalence | | | | | | populations may also | | | | | | result in false-positive | | | | | | results.Performed by | | | | | | [address] | | | | | | Gurwinder Brown, [facility],[place] | | | | | | [address] | | | | | | [phone].[employer]. | | | | | | Harley [...] [facility] | [address] | [place], [place] | | | UNIV PTH - INTFC | | [address] | | + + + + + HSV ANTIBODY, SERUM (04/21/2019 8:39 AM PDT) + + + + + + | Component | Value | Ref Range | Performed | Pathologist | | | | | At | Signature | + + + + + + | HSV 1/2 IGG | >22.40Comment: | IV | [facility] | | | ANTIBODY | INTERPRETIVE | | REG UNIV | | | | INFORMATION: HSV 1/2 | | PTH - INTFC | | | | COMBINED Ab SCREEN, IgG | | | | | | 0.89 IV or | | | | | | less.........Not | | | | | | Detected 0.90-1.09 | | | | | | IV............Indetermin | | | | | | ate- Repeat testing | | | | | | | | | | | | in 10-14 days | | | | | | may be helpful. 1.10 | | | | | | IV or | | | | | | greater......Detected | | | | | | The best evidence for | | | | [...] + + + + + + | HSV 1/2 IGM | 1.32 (H)Comment: | <=0.89 IV | [facility] | | | ANTIBODY | Specimen is icteric. | | REG UNIV | | | | Results may be | | PTH - INTFC | | | | adversely | | | | | | affected.INTERPRETIVE | | | | | | INFORMATION: Herpes | | | | | | Simplex Virus Type 1 | | | | | | and/or 2 Antibodies, IgM | | | | | | by NISSA 0.89 IV or | | | | | | Less .......... Not | | | | | | Detected 0.90 - 1.09 | | | | | | IV ........... | | | | | | Indeterminate- Repeat | | | | | | testing in | | | | | | | | | | | | 10-14 days may be | | | | | | helpful. 1.10 IV or | | | | | | Greater ....... | | | | | | Detected-IgM antibody to | | | | | | HSV | | | | | | | | | | | | detected, which may | | | | | [...] months | | | | | | post-infection.Performed | | | | | | by [facility] | | | | | | [facility],[address] | | | | | | [place] [address] | | | | | | [phone].aruplab. | | | | | | Harley [...] [facility] | [address] | [place], [place] | | | UNIV PTH - INTFC | | [address] | | + + + + + CMV IGG AND IGM ABS, SERUM (04/21/2019 8:39 AM PDT) + + + + + [...] + + | CMV IGM AB | 30.9 (H)Comment: | <=29.9 AU/mL | [facility] | | [...] by | | | | | | [address] | | | | | | Gurwinder Brown, [facility],[place] | | | | | | [address] | | | | | | [phone].[facility]. | | | | | | Harley [...] + + | [facility] | [address] | [place], [place] | | | UNIV PTH - INTFC | | [address] | | + + + + + MOE LAGUNA VIRUS PANEL, SERUM (04/21/2019 8:39 AM PDT) + + + + + + | Component | Value | Ref Range | Performed | Pathologist | | | | | At | Signature | + + + + + + | MOE | 162.0 (H)Comment: | 0.0 - 21.9 U/mL | [facility] | | | LAGUNA VIRUS | INTERPRETIVE | | REG UNIV | | | AB VCA IGG | INFORMATION: | | PTH - INTFC | | | | Moe-Laguna Virus | | | | | | [...] PTH - INTFC | | | | Moe-Laguna Virus | | | | | | [...] + + + | AB TO | 89.5 (H)Comment: | 0.0 - 21.9 U/mL | [facility] | | | NUCLEAR AG | INTERPRETIVE | | REG UNIV | | | | INFORMATION: | | PTH - INTFC | | | | Moe-Laguna Virus | | | | | | [...] + + | AB TO EARLY | 32.1 (H)Comment: | 0.0 - 10.9 U/mL | [...] INFORMATION: | | | | | | Moe-Laguna Virus | | | | | | [...] | | | | | | Laboratories,[address] | | | | | | [address], [facility] [address] | | | | | | [phone].[facility]. | | | | | | Harley [...] [facility] | [address] | [place], [place] | | | UNIV PTH - INTFC | | [address] | | + + + + + VARICELLA ZOSTER IGG, SERUM (04/21/2019 8:39 AM PDT) + + + + + + | Component | Value | Ref Range | Performed | Pathologist | | | | | At | Signature | + + + + + + | VARICELLA | PositiveComment: | | [facility] | | | ZOSTER IGG | VARICELLA ANTIBODY | | AIRPORT - | | | | TESTING IS NOT INDICATED | | [place] | | | | OR USEFUL TO DOCUMENT | | | | | | IMMUNITY IN RECIPIENTS | | | | | | OF VARICELLA VACCINE. | | | | + + + + + + + + | Specimen | + + | Blood - Blood | | (substance) | + + + + + + + | Performing | Address | City/State/Zipcode | Phone Number | | Organization | | | | + + + + + | [facility] - | [address] | [place], [place] [address] | | | [place] | | | | + + + + + RPR SERUM (04/21/2019 8:39 AM PDT) + + + + + + | Component | Value | Ref Range | Performed | Pathologist | | | | | At | Signature | + + + + + + | RPR SRM | Non ReactiveComment: | Non Reactive | [facility] | | | QUAL | Rapid Plasma Reagin | | REG UNIV | | | | screening test is | | PTH - INTFC | | | | Non-Reactive. No further | | | | | | reflex testing is | | | | | | required.Performed by | | | | | | [address] | | | | | | Gurwinder Brown, [facility],[place] | | | | | | [address] | | | | | | [phone].[facility]. | | | | | | Harley [...] + | [facility] | [address] | [place], [place] | | | UNIV PTH - INTFC | | [address] | | + + + + + HIV-1,2 AB/HIV-1 P24 AG SCRN (04/21/2019 8:39 AM PDT) + + + + + + | Component | Value | Ref Range | Performed | Pathologist | | | | | At | Signature | + + + + + + | HIV-1,2 | NegativeComment: The | Negative | [facility] | | | AB/HIV-1 | specimen was | | REG UNIV | | | P24 AG | non-reactive for HIV-1 | | PTH - INTFC | | | SCREEN | and HIV-2 antibodies, | | | | | | and p24 antigen. Based | | | | | | on this non-reactive | | | | | | screen result, further | | | | | | reflexive testing was | | | | | | not indicated and was, | | | | | | therefore, not | | | | | | performedINTERPRETIVE | | | | | | INFORMATION: HIV-1,2 | | | | | | Combo Ag/Ab EIA, | | | | | | w/Reflex This assay | | | | | | should not be used for | | | | | | blood donor screening, | | | | | | associated re-entry | | | | | | protocols, or for | | | | | | screening Human Cells, | | | | | | Tissues, and Cellular | | | | | | and Tissue-Based | | | | | | Products | | | | | | (HCT/P).Performed by | | | | | | [address] | | | | | | Gurwinder Brown, [facility],[place] | | | | | | [address] | | | | | | [phone].[facility]. | | | | | | Harley [...] + | [facility] | [address] | [place], [place] | | | UNIV PTH - INTFC | | [address] | | + + + + + HEPATITIS A AB IGM, SERUM (04/21/2019 8:39 AM PDT) + + + + + + | Component | Value | Ref Range | Performed | Pathologist | | | | | At | Signature | + + + + + + | HEPATITIS A | Negative | Negative | [facility] | | | AB, IGM | | | AIRPORT - | | | | | | [place] | | + + + + + + + + | Specimen | + + | Blood - Blood | | (substance) | + + + + + + + | Performing | Address | City/State/Zipcode | Phone Number | | Organization | | | | + + + + + | [facility] | [address] | [place] [address] | | | [place] | | | | + + + + + HEPATITIS A AB, IGG (04/21/2019 8:39 AM PDT) + + + + + + | Component | Value | Ref Range | Performed | Pathologist | | | | | At | Signature | + + + + + + | HEPATITIS A | Positive (A) | Negative | [facility] | | | IGG | | | AIRPORT - | | | | | | [place] | | + + + + + + + + | Specimen | + + | Blood - Blood | | (substance) | + + + + + + + | Performing | Address | City/State/Zipcode | Phone Number | | Organization | | | | + + + + + | [facility] | [address] | [place] [address] | | | [place] | | | | + + + + + HEPATITIS C VIRUS W/CONFIRMATION (04/21/2019 8:39 AM PDT) + + + + + [...] [facility] | [address] | [place] [address] | | | SERVICES, CORE | [address] | | | + + + + + HEPATITIS B SURFACE AG W/REFLEX CONFIRMATION IF INDETERMINATE RESULTS (04/21/2019 8:39 AM PDT) + + + + + [...] [facility] | [address] | [place] [address] | | | SERVICES, CORE | [address] | | | + + + + + HEPATITIS B SURFACE AB QUAL, SERUM (04/21/2019 8:39 AM PDT) + + + + + [...] | + + + + + | [facility] | [address] | [place] [address] | | | SERVICES, CORE | [address] | | | + + + + + HEPATITIS B CORE AB, SERUM (04/21/2019 8:39 AM PDT) + + + + + [...] | + + + + + | [facility] | [address] | [place] [address] | | | SERVICES, CORE | [address] | | | + + + + + PHOSPHATIDYLETHANOL (PETH) (04/21/2019 8:39 AM PDT) + + + + + + | Component | Value | Ref Range | Performed | Pathologist | | | | | At | Signature | + + + + + + | PHOSPHATIDY | NEGATIVEComment: | NEGATIVE ng/mL | [facility] | | | LETHANOL | Analyzed compound: PEth | | REG UNIV | | | (PETH) | 16:0/18:1.0-vuhwyhulg-5- | | PTH - INTFC | | | | hlbsrd-ly-dzermjv-3-phos | | | | | | phoethanol.Analysis [...] | | | | at: [facility] [address] | | | | | | [facility] [address] | | | | | | [place] [address] | | | | + + + + + + + + | Specimen | + + | Blood - Blood | | (substance) | + + + + + + + | Performing | Address | City/State/Zipcode | Phone Number | | Organization | | | | + + + + + | [facility] | [address] | [place], [place] | | | UNIV PTH - INTFC | | [address] | | + + + + + ALPHA 1 ANTITRP PHEN/LEV, SERUM (04/21/2019 8:39 AM PDT) + + + + + + | Component | Value | Ref Range | Performed | Pathologist | | | | | At | Signature | + + + + + + | ALPHA 1 | MMComment: The patient | | [facility] | | | ANTITRYPSIN | appears to have a normal | | REG UNIV | | | PHENOTYPE | phenotype. All M | | PTH - INTFC | | | | alleles (including | | | | | | subtypes M1, M2, and M3) | | | | | | produce normal serum | | | | | | concentrations of | | | | | | prvvb-5-isoaiken | | | | | | inhibitor and are not | | | | | | associated with clinical | | | | | | disease. Caution in | | | | | | interpretation is | | | | | | advised if the patient | | | | | | has been transfused | | | | | | within the previous 21 | | | | | | days.Performed by [facility] | | | | | | [facility],[address] [place] [address] | | | | | | [place] [address] | | | | | | [phone].arlab. | | | | | | [facility], | | | | | | Lab. Director | | | | + + + + + + | ALPHA 1 | 166Comment: To convert | 90 - 200 mg/dL | [facility] | | | ANTITRY SER | to umol/L, multiply | | REG UNIV | | | | mg/dL by 0.185 | | PTH - INTFC | | [...] [facility] | [address] | [place], [place] | | | UNIV PTH - INTFC | | [address] | | + + + + + VITAMIN A, SERUM (04/21/2019 8:39 AM PDT) + + + + + + | Component | Value | Ref Range | Performed | Pathologist | | | | | At | Signature | + + + + + + | INTERPRETAT | See NoteComment: | | [facility] | | | ION (VIT A) | Retinol greater than 0.3 | | REG UNIV | | | | mg/L is typically | | PTH - INTFC | | | | associated with adequate | | | | | | liver stores in adults, | | | | | | and is within normal | | | | | | limits for children. | | | | | | Retinol less than 0.10 | | | | | | mg/L may indicate | | | | | | depleted liver stores | | | | | | and severe deficiency. | | | | | | Test developed and | | | | | | characteristics | | | | | | determined by [facility] | | | | | | [facility]. See | | | | | | Compliance Statement B: | | | | | | [employer].Get[employer]za/CSPerformed | | | | | | by [address] | | | | | | Gurwinder Brown [facility],[place] | | | | | | [address] | | | | | | [phone].[employer]. | | | | | | [facility], | | | | | | Lab. Director | | | | + + + + + + | RETINOL | 0.21 (L) | 0.30 - 1.20 | [facility] | | | (VITAMIN A) | | mg/L | REG UNIV | | | | | | PTH - INTFC | | + + + + + + | RETINYL | 0.04 | 0.00 - 0.10 | [facility] | | | PALMATATE | | mg/L | REG UNIV | | | | [...] [facility] | [address] | [place], [place] | | | UNIV PTH - INTFC | | [address] | | + + + + + VITAMIN D, 25-HYDROXY, SERUM (04/21/2019 8:39 AM PDT) + + + + + + | Component | Value | Ref Range | Performed | Pathologist | | | | | At | Signature | + + + + + + | VITAMIN D | 19.9 (L) | 30 - 80 ng/mL | [facility] | | | 25 HYDROXY | | | LABORATORY | | | | | | SERVICES, | | | | | | CORE | | + + + + + + + + | Specimen | + + | Blood - Blood | | (substance) | + + + + + | Narrative | Performed At | + + + | Reference Interval: 0-18years: Deficiency: <20 ng/mL | [facility] | | Optimum level: >or=20 ng/mL | LABORATORY | | >18years: Deficiency: <20 ng/mL | SERVICES, CORE | | Insufficiency: 20-29 ng/mL | | | Optimum Level: 30-80 ng/mL High: | | | 81-150 ng/ml Toxic: >150 ng/mL | | + + + + + + + + | Performing | Address | City/State/Zipcode | Phone Number | | Organization | | | | + + + + + | [facility] | [address] | [place] [address] | | | SERVICES, [place] | [address] | | | + + + + + ANTI SMOOTH MUSCLE AB, SERUM (04/21/2019 8:39 AM PDT) + + + + + + | Component | Value | Ref Range | Performed | Pathologist | | | | | At | Signature | + + + + + + | ANTI-SMOOTH | Negative | Negative | [facility] | | | MUSCLE | | | AIR[facility] - | | | | | | [place] | | + + + + + + + + | Specimen | + + | Blood - Blood | | (substance) | + + + + + + + | Performing | Address | City/State/Zipcode | Phone Number | | Organization | | | | + + + + + | [facility] - | [address] | [place] [address] | | | [place] | | | | + + + + + DIOGENES BY NISSA W/REFLEX TO IFA PATTERN & AB ID WHEN INDICATED (04/21/2019 8:39 AM PDT) + + + + + + | Component | Value | Ref Range | Performed | Pathologist | | | | | At | Signature | + + + + + + | ANTI-NUCLEA | None DetectedComment: If | None Detected | [facility] | | | R AB(DIOGENES), | suspicion of connective | | REG UNIV | | | IGG BY | tissue disease is | | PTH - INTFC | | | NISSA | strong and DIOGENES EIA is | | | | | | negative, consider | | | | | | testing for DIOGENES by IFA | | | | | | ([id number]). No | | | | | | antibodies to | | | | | | Anti-Nuclear Antibodies | | | | | | (DIOGENES) detected. The | | | | | | Extractable Nuclear | | | | | | Antigen Antibodies (BOW MA[employer]ER [employer]USTOM, | | | | | | Arreguin, SSA 52, SSA 60, | | | | | | Scleroderma, Lynn-1 and | | | | | | SSB) and Double Stranded | | | | | | DNA (dsDNA) Antibody, | | | | | | IgG will not be | | | | | | performed.INTERPRETIVE | | | | | | INFORMATION: | | | | | | Anti-Nuclear Antibodies | | | | | | (DIOGENES), IgG by NISSA | | | | | | Anti-Nuclear Antibodies | | | | | | (DIOGENES), IgG by NISSA: DIOGENES | | | | | | specimens are screened | | | | | | using enzyme-linked | | | | | | immunosorbent assay | | | | | | (NISSA) methodology. All | | | | | | NISSA results reported | | | | | | as Detected are further | | | | | | tested by indirect | | | | | | fluorescent assay (IFA) | | | | | | using HEp-2 substrate | | | | | | with an IgG-specific | | | | | | conjugate. The DIOGENES NISSA | | | | | | screen is designed to | | | | | | detect antibodies | | | | | | against dsDNA, histone, | | | | | | SS-A (Ro), SS-B (La), | | | | | | Arreguin, snRNP/Sm, Scl-70, | | | | | | Lynn-1, centromere, and | | | | | | an extract of lysed | | | | | | HEp-2 cells. DIOGENES NISSA | | | | | | assays have been | | | | | | reported to have lower | | | | | | sensitivities than DIOGENES | | | | | | IFA for systemic | | | | | | autoimmune rheumatic | | | | | | diseases (SARD). | | | | | | Negative results do not | | | | | | necessarily rule out | | | | | | SARD.Performed by [facility] | | | | | | [facility],[address] | | | | | | [place], [facility] [address] | | | | | | [phone].aruplab. | | | | | | Harley [...] [facility] | [address] | [place], [place] | | | UNIV PTH - INTFC | | [address] | | + + + + + HEMOGLOBIN A1C, BLOOD (04/21/2019 8:39 AM PDT) + + + + + + | Component | Value | Ref Range | Performed | Pathologist | | | | | At | Signature | + + + + + + | HEMOGLOBIN | <3.5Comment: Hgb A1C | <5.7 % | [facility] | | | A1C | Interpretive | | LABORATORY | | | | Information: | | SERVICES, | | | | <5.7% - Normal | | SPECIAL IMM | | | | 5.7-6.4% - Consistent | | + COAG | | | | with pre-diabetes | | | | | | >6.4% - Consistent | | | | | | with diabetes | | | | | | | | | | + + + + + + | ESTIMATED | Comment: The estimated | mg/dL | [facility] | | | AVERAGE | Average Glucose (eAG) | | LABORATORY | | | GLUCOSE | number is calculated | | SERVICES, | | | | from the result of the | | SPECIAL IMM | | | | A1c test. The eAG shows | | + COAG | | | | what the average blood | | | | | | glucose was over the | | | | | | previous 2 to 3 months. | | | | + + + + + + + + | Specimen | + + | Blood - Blood | | (substance) | + + + + + | Narrative | Performed At | + + + | Alternate forms of testing such as fructosamine should be | [facility] | | considered for monitoring terminal make up operator glycemic control in patients with: | LABORATORY [...] | + + + + + | [facility] | [address] [facility] | [place] [address] | | | SERVICES, SPECIAL | [address] | | | | IMM + COAG | | | | + + + + + TOXOPLASMA IGG AB, SERUM (04/21/2019 8:39 AM PDT) + + + + + [...] by | | | | | | [address] | | | | | | Gurwinder Brown, [facility],[place] | | | | | | [address] | | | | | | [phone].Material Wrldlab. | | | | | | Harley [...] + | [facility] | [address] | [place], [place] | | | UNIV PTH - INTFC | | [address] | | + + + + + QUANTIFERON TB GOLD, BLOOD (04/21/2019 8:39 AM PDT) + + + + + + | Component | Value | Ref Range | Performed | Pathologist | | | | | At | Signature | + + + + + + | QUANTIFERON | 0.44 | IU/mL | [facility] | | | MITOGEN | | | REG UNIV | | | MINUS NIL | | | PTH - INTFC | | + + + + + + | QUANTIFERON | 0.16Comment: Performed | IU/mL | [facility] | | | NIL | by [address] | | REG UNIV | | | | Gurwinder Brown, [facility],[place] | | PTH - INTFC | | | | [address] | | | | | | [phone].aruplab. | | | | | | Harley gomez MD, | | | | | | Lab. Director | | | | + + + + + + | QUANTIFERON | IndeterminateComment: | Negative | [facility] | | | TB PLUS | Negative Mitogen | | REG UNIV | | | GOLD | Response: Negative | | PTH - INTFC | | | | mitogen response may | | | | | | occur either due to | | | | | | T-Cell anergy or | | | | | | mishandling of the | | | | | | specimen draw | | | | | | tubes.Interpretive Data: | | | | | | Quantiferon TB Gold | | | | | | Plus Interferon gamma | | | | | | release is measured for | | | | | | specimens from each of | | | | | | the four collection | | | | | | tubes. A qualitative | | | | | | result (Negative, | | | | | | Positive, or | | | | | | Indeterminate) is based | | | | | | on interpretation of the | | | | | | four values, NIL, | | | | | | MITOGEN minus NIL | | | | | | (MITOGEN-NIL), TB1 minus | | | | | | NIL (TB1-NIL), and TB2 | | | | | | minus NIL (TB2-NIL). The | | | | | | NIL value represents | | | | | | nonspecific reactivity | | | | | | produced by the patient | | | | | | specimen. The | | | | | | MITOGEN-NIL value serves | | | | | | as the positive control | | | | | | for the patient | | | | | | specimen, demonstrating | | | | | | successful lymphocyte | | | | | | activity. The TB1-NIL | | | | | | tube specifically | | | | | | detects CD4+ lymphocyte | | | | | | reactivity, specifically | | | | | | stimulated by the TB1 | | | | | | antigens. The TB2-NIL | | | | | | tube detects both CD4+ | | | | | | and CD8+ lymphocyte | | | | | | reactivity, stimulated | | | | | | by TB2 antigens. An | | | | | | overall Negative result | | | | | | does not completely rule | | | | | | out TB infection. A | | | | | | false-positive result in | | | | | | the absence of other | | | | | | clinical evidence of TB | | | | | | infection is not | | | | | | uncommon. Refer to: | | | | | | Updated Guidelines for | | | | | | Using Interferon Gamma | | | | | | Release Assays to Detect | | | | | | Mycobacterium | | | | | | tuberculosis Infection | | | | | | --- [place], 2009 | | | | | | (http://www.cdc.gov/mmwr | | | | | | /[email or web address] | | | | | | [email or web address].htm), for more | | | | | | information concerning | | | | | | test performance in | | | | | | low-prevalence | | | | | | populations and use in | | | | | | occupational screening. | | | | + + + + + + | QUANTIFERON | 0.00 | 0.00 - 0.34 | [facility] | | | PLUS TB1 | | IU/mL | REG UNIV | | | MINUS NIL | | | PTH - [facility] | | + + + + + + | QUANTIFERON | 0.00 | 0.00 - 0.34 | [facility] | | | PLUS TB2 | | IU/mL | REG UNIV | | | MINUS NIL | | | PTH - [facility] | [...] [facility] | [address] | [place], [place] | | | UNIV PTH - [facility] | | [id number] | | + + + + + ETHYL GLUCURONIDE QUANT, URINE (04/21/2019 8:39 AM PDT) + + + + + [...] | | | | | determined by [facility] | | | | | | [facility]. See | | | | | | Compliance Statement B: | | | | | | [employer] | | | | | | [address] | | | | | | [facility] | | | | | | [id number] | | | | | | [phone].[employer]. | | | | | | com, Harley Coates MD, | | | | | | Lab. Director | | | | + + + + + + + + | Specimen | + + | Urine | + + + + + | Narrative | Performed At | + + + | A result of "<" means no ethyl glucuronide or ethyl sulfate was | [facility] | | detected. Confirmation Cut-off: Ethyl glucuronide by LC-MS: >500 | REG UNIV PTH - | | ng/mL Ethyl sulfate by LC-MS: >250 ng/mL. Ethyl glucuronide (EtG) | [facility] | | and ethyl sulfate (EtS) are metabolites of ethanol. EtG and EtS can be | | | detected in urine up to 80 hours after ethanol ingestion. The | | | presence of both metabolites can be used as markers for recent alcohol | | | use. False positive and false negative test results can occur. False | | | negative results can occur due to the presence of certain bacteria | | | such as E. coli in urine. False positive EtG results can occur from | | | microbial formation or from fermentation. Results confirmed by mass | | | spectrometry. This is a lab-developed test not evaluated by the FDA. | | | The results are not intended to be used as the sole means for clinical | | | diagnosis or patient management decisions. | | + + + + + + + + | Performing | Address | City/State/[facility] | Phone Number | | Organization | | | | + + + + + | [facility] | [address] | [place], [place] | | | UNIV PTH - INTFC | | [address] | | + + + + + DRUG SCREEN,URINE;W/CONFIRM (04/21/2019 8:39 AM PDT) + + + + + [...] | Negative | [facility] | | | SPENSER, URINE | | | LABORATORY | | [...] medical (i.e. treatment) purposes only. The reported result | | | is an estimated concentration of drug that can be detected by the | | | method of analysis. Amphetamine Note: Benzphetamine and Selegiline | | | may produce positive results with this assay. Opiates Notes: | | | Therapeutic doses of Ofloxcin (Floxin) or Levofloxacin (Levaquin) may | | | produce positive results with this assay. The substaces being tested | | | for must include Amphetamines, Benzodiazepines, Cocaine, Alcohol, | | | Cannabinoids, Opiates. | | + + + + + + + + | Performing | Address | City/State/Zipcode | Phone Number | | Organization | | | | + + + + + | [facility] | [address] | [place] [address] | | | SERVICES, CORE | [address] | | | + + + + + NICOTINE + METABOLITE SCREEN, URINE (04/21/2019 8:39 AM PDT) + + + + + + | Component | Value | Ref Range | Performed | Pathologist | | | | | At | Signature | + + + + + + | NICOTINE, | 170Comment: Consistent | ng/mL | [facility] | | | URINE | with use of a | | REG UNIV | | | | nicotine-containing | | PTH - INTFC | | | | product within1 week of | | | | | | specimen | | | | | | collection.INTERPRETIVE | | | | | | INFORMATION: [...] 5 | | | | | | ng/[id number]-Japcsqul 50 | | | | | | [...] | | | | | determined by [facility] | | | | | | Laboratories. See | | | | | | Compliance Statement B: | | | | | | [employer]/CSPerformed | | | | | | by [address] | | | | | | [address] [facility],[place] | | | | | | [address] | | | | | | [phone].[facility]. | | | | | | Harley gomez MD, | | | | | | Lab. Director | | | | + + + + + + | COTININE, | 397Comment: Cotinine is | ng/mL | [facility] | | | URINE | the major metabolite of | | REG UNIV | | | | nicotine and has | | PTH - INTFC | | | | ahalf-life of | | | | | | approximately 16 hours. | | | | + + + + + + | NORNICOTINE | 23Comment: Nornicotine | ng/mL | [facility] | | | , URINE | may be present in | | REG UNIV | | | | tobacco products or | | PTH - INT[facility] | | | | mayresult from | | | | | | metabolism of nicotine. | | | | + + + + + + | ANABASINE, | <3 | ng/mL | [facility] | | | URINE | | | REG UNIV | | | | | | PTH - INTFC | | + + + + + + | 3-OH-COTINI | 775Comment: Nicotine is | ng/mL | [facility] | | | NE, URINE | metabolized to cotinine, | | REG UNIV | | | | and 0-FS-bnoyskse is | | PTH - INTFC | | | | ametabolite of cotinine. | | | | | | After cessation from | | | | | | long-term orheavy use of | | | | | | nicotine products, | | | | | | 0-VF-ipvwgavi may | | | | | | persistfor weeks. | | | | + + + + + + + + | Specimen | + + | Urine - Urine | | (substance) | + + + + + + + | Performing | Address | City/State/Zipcode | Phone Number | | Organization | | | | + + + + + | [facility] | [address] | [place], [place] | | | UNIV PTH - INT[facility] | | [address] | | + + + + + PROTEIN ELECTROPHORESIS, SERUM, WITH REFLEX TO IMMUNOFIXATION (04/21/2019 8:39 AM PDT) + + + + + + | Component | Value | Ref Range | Performed | Pathologist | | | | | At | Signature | + + + + + + | TOTAL | 7.6 | 6.4 - 8.3 gm/dL | [facility] | | | PROTEIN, | | | AIR[facility] - | | | SERUM - | | | [place] | | | SPEP | | | | | + + + + + + | GAMMA %, | 26.6 | % | [facility] | | | SPEP | | | AIRPORT - | | | | | | [place] | | + + + + + + | GAMMA, | 2.02 (H) | 0.50 - 1.50 | [facility] | | | SERUM - | | gm/dL | AIR[facility] - | | | SPEP | | | [place] | | + + + + + + | BETA % SPEP | 10.7 | % | [facility] | | | | | | AIRPORT - | | | | | | [place] | | + + + + + + | BETA, SERUM | 0.81 | 0.60 - 1.20 | [facility] | | | - SPEP | | gm/dL | AIRPORT - | | | | | | [place] | | + + + + + + | ALPHA-2 %, | 5.8 | % | [facility] | | | SPEP | | | AIRPORT - | | | | | | [place] | | + + + + + + | ALPHA-2, | 0.44 (L) | 0.50 - 0.90 | [facility] | | | SERUM - | | gm/dL | AIRPORT - | | | SPEP | | | [place] | | + + + + + + | ALPHA-1 %, | 2.5 | % | [facility] | | | SPEP | | | AIRPORT - | | | | | | [place] | | + + + + + + | ALPHA-1, | 0.19 | 0.10 - 0.40 | [facility] | | | SERUM - | | gm/dL | AIRPORT - | | | SPEP | | | [place] | | + + + + + + | ALBUMIN %, | 54.4 | % | [facility] | | | SPEP | | | AIRPORT - | | | | | | [place] | | + + + + + + | ALBUMIN,SER | 4.13 | 3.40 - 5.20 | [facility] | | | UM - SPEP | | gm/dL | AIRPORT - | | | | | | [place] | | + + + + + + | SPEP | Decreased Alpha 2 | | [facility] | | | COMMENTS | Globulin is usually due | | AIRPORT - | | | | to low Haptoglobin which | | [place] | | | | comprises over half of | | | | | | this fraction. It is | | | | | | lowered in the presence | | | | | | of intravascular | | | | | | hemolysis, but is also | | | | | | absent in 2% of healthy | | | | | | individuals. Broad | | | | | | elevation of Gamma | | | | | | Globulin. Polyclonal | | | | | | Gamma elevation is seen | | | | | | in a variety of chronic | | | | | | inflammatory conditions, | | | | | | infections, autoimmune | | | | | | disease and liver | | | | | | disease.Comment: | | | | | | Interpretation By: Horace | | | | | | Uabldo CARRERO - Pathology | | | | + + + + + + + + | Specimen | + + | Blood - Blood | | (substance) | + + + + + + + | Performing | Address | City/State/Zipcode | Phone Number | | Organization | | | | + + + + + | [facility] | [address] | [place] [address] | | | [place] | | | | + + + + + FERRITIN (04/21/2019 8:39 AM PDT) + + + + + + | Component | Value | Ref Range | Performed | Pathologist | | | | | At | Signature | + + + + + + | FERRITIN | 4,124 (H)Comment: Male | 50 - 200 ng/mL [...] [facility] | [address] | [place] [address] | | | SERVICES, CORE | [address] | | | + + + + + IRON AND TIBC (04/21/2019 8:39 AM PDT) + +---------+ + + + | Component | Value | Ref Range | Performed | Pathologist | | | | | At | Signature | + +---------+ + + + | IRON | 204 (H) | 50 - 170 ug/dL | [facility] | | | | | | LABORATORY | | | | | | SERVICES, | | | | | | CORE | | + +---------+ + + + | IRON BIND | 194 (L) | 240 - 450 ug/dL | [facility] | | | CAP | | | LABORATORY | | | | | | SERVICES, | | | | | | CORE | | + +---------+ + + + | % | 105 (H) | 20 - 50 % | [...] [facility] | [address] | [place] [address] | | | SERVICES, CORE | [address] | | | + + + + + FREE T4 (04/21/2019 8:39 AM PDT) + +---------+ + + + | Component | Value | Ref Range | Performed | Pathologist | | | | | At | Signature | + +---------+ + + + | FREE T4 | 1.3 (H) | 0.6 - 1.2 ng/dL | [...] [facility] | [address] | [place] [address] | | | SERVICES, CORE | [address] | | | + + + + + TSH (04/21/2019 8:39 AM PDT) + +-------+ + + + | Component | Value | Ref Range | Performed | Pathologist | | | | | At | Signature | + +-------+ + + + | TSH | 1.33 | 0.50 - 5.07 | [facility] | [...] [facility] | [address] | [place] [address] | | | SERVICES, CORE | [address] | | | + + + + + ALPHA-FETOPROTEIN TUMOR MARKER, SERUM (04/21/2019 8:39 AM PDT) + + + + + + | Component | Value | Ref Range | Performed | Pathologist | | | | | At | Signature | + + + + + + | AFP TUMOR | 14.9 (H) | <=9.0 ng/mL | [facility] | | [...] | + + + + + | [facility] | [address] [facility] | [place] [address] | | | SERVICES, CORE | [address] | | | + + + + + ZINC, SERUM (04/21/2019 8:39 AM PDT) + + + + + + | Component | Value | Ref Range | Performed | Pathologist | | | | | At | Signature | + + + + + + | ZINC SERUM | 38.7 (L)Comment: | 60.0 - 120.0 | [facility] | | | | INTERPRETIVE | ug/dL | REG UNIV | | | | INFORMATION: Zinc, Serum | | PTH - INTFC | | | | or Plasma Elevated | | | | | | results may be due to | | | | | | skin or | | | | | | collection-related | | | | | | contamination, including | | | | | | the use of a | | | | | | noncertified metal-free | | | | | | collection/transport | | | | | | tube. If contamination | | | | | | concerns exist due to | | | | | | elevated levels of | | | | | | serum/plasma zinc, | | | | | | confirmation with a | | | | | | second specimen | | | | | | collected in a certified | | | | | | metal-free tube is | | | | | | recommended. Circulating | | | | | | zinc concentrations are | | | | | | dependent on albumin | | | | | | status and are depressed | | | | | | with malnutrition. | | | | | | Zinc may also be | | | | | | lowered with infection, | | | | | | inflammation, stress, | | | | | | oral contraceptives, and | | | | | | . Zinc may | | | | | | be elevated with zinc | | | | | | supplementation or | | | | | | fasting. Elevated zinc | | | | | | concentrations may | | | | | | interfere with copper | | | | | | absorption. Test | | | | | | developed and | | | | | | characteristics | | | | | | determined by [facility] | | | | | | Laboratories. See | | | | | | Compliance Statement B: | | | | | | [employer]/CSPerformed | | | | | | by [address] | | | | | | [facility] | | | | | | [address] | | | | | | [phone].[employer]. | | | | | | Harley [...] + | [facility] | [address] | [place], [place] | | | UNIV PTH - INTFC | | [address] | | + + + + + URINE, MICROSCOPIC EXAM (04/21/2019 8:39 AM PDT) + +--------+ + + + | Component | Value | Ref Range | Performed | Pathologist | | | | | At | Signature | + +--------+ + + + | RED CELLS | 21 (H) | 0 - 3 /hpf | [...] +--------+ + + + | HYALINE | 3 (H) | 0 - 2 /lpf | [facility] [...] [facility] | [address] | [place] [address] | | | SERVICES, CORE | [address] | | | + + + + + MAUDE TINSLEY ONLY (04/21/2019 8:39 AM PDT) + + + + + + | Component | Value | Ref Range | Performed | Pathologist | | | | | At | Signature | + + + + + + | COLOR(UR) | Yellow | | [facility] | | | | [...] + + + + | SPECIFIC | 1.010Comment: Specific | 1.005 - 1.030 | [facility] | | | GRAVITY | Firestone performed by | | LABORATORY | | [...] [facility] | [address] | [place] [address] | | | SERVICES, CORE | [address] | | | + + + + + APTT (ACT. PART. THROMBO TIME) (04/21/2019 8:39 AM PDT) + + + + + + | Component | Value | Ref Range | Performed | Pathologist | | | | | At | Signature | + + + + + + | APTT | 59.2 (H) | 26.0 - 36.0 | [facility] [...] processed >1 hour after collection. APTT Therapeutic Range: | LABORATORY | | (75 - 120) sec Heparin levels of | SERVICES, CORE | | 0.35 - 0.7 U/mL | | + + + + + + + + | Performing | Address | City/State/Zipcode | Phone Number | | Organization | | | | + + + + + | [facility] | [address] | [place] [address] | | | SERVICES, CORE | [address] | | | + + + + + INR (04/21/2019 8:39 AM PDT) + + + + + + | Component | Value | Ref Range | Performed | Pathologist | | | | | At | Signature | + + + + + + | INR | 2.66 (H) | 0.90 - 1.20 INR | [...] [facility] | [address] | [place] [address] | | | SERVICES, CORE | [address] | | | + + + + + BILIRUBIN DIRECT (04/21/2019 8:39 AM PDT) + +---------+ + + + | Component | Value | Ref Range | Performed | Pathologist | | | | | At | Signature | + +---------+ + + + | BILIRUBIN | 5.2 (H) | 0.0 - 0.3 mg/dL | [...] | + + + + + | [facility] | [address] [facility] | [place] [address] | | | SERVICES, CORE | [address] | | | + + + + + COMPLETE METABOLIC SET (NA,K,CL,CO2,BUN,CREAT,GLUC,CA,AST,ALT,BILI TOTAL,ALK PHOS,ALB,PROT TOTAL) (04/21/2019 8:39 AM PDT) + + + + + [...] + + + + | CREATININE | 1.72 (H) | 0.70 - 1.30 | [facility] | | | PLASMA | | mg/dL | LABORATORY | | | (LAB) | | | SERVICES, | | | | | | CORE | | + + + + + + | EGFR | 50 (L) | >60 mL/min | [facility] | | | - | | | LABORATORY | | | [place] | | | SERVICES, | | | [...] + + + + | BILIRUBIN | 15.5 (H) | 0.3 - 1.2 mg/dL | [...] MDRD equation recommended by the National | [facility] | | Kidney Disease Education Program. Estimated GFR Interpretive | LABORATORY | | Information: <60 mL/min/1.73 sq m Chronic Kidney | SERVICES, [facility] | | Disease <15 mL/min/1.73 sq m [...] | + + + + + | [facility] | [address] | [place] [address] | | | SERVICES, [facility] | [address] | | | + + + + + documented in this encounter Visit Diagnoses + + | Diagnosis | + + | Alcoholic cirrhosis of liver with ascites (HCC) - Primary Alcoholic cirrhosis of | | liver | + + | Ascites due to alcoholic cirrhosis (HCC) | + + | Internal organ deficiencies Deficiencies of internal organs | + + | Preoperative examination Preoperative examination, unspecified | + + documented in this encounter
--- OUTSIDE RECORDS SUMMARY | ~2020-07-29 | XMS | Encounter Summary ---
Demographics + + + | Address | [address] | | | [place] [address] | + + + | Home Phone [...] [place] | | | | | [address] | | + + + + + Care Team Providers + +------+ + | Care Security Sales Manager Name | Role | Phone | + +------+ + | Sharon David MD | PCP | | + +------+ + Encounter Details +--------+ + + + + | Date | Type | Department | Care Team | Description | +--------+ + + + + | 02/07/ | Pharmacy | [facility] | | | | 2020 | Visit | [address] | | | | | | [address] | | | | | | [place] [address] | | | | | | [phone] | | | +--------+ + + + [...] Rd | | | | | | [place], [place] | | | | | | [address] | | | | | | [phone] | | | | | | | | +--------+ + + + + | 09/27/ | Telephone-S | Liver Transplant | Vimal Crowe MD | | | 2019 | cheduled | | [address] | | | | | | [address], | | | | | | [place] [address] | | | | | | [phone] | | | | | | | [...] Rd | | | | | | [place] | | | | | | [address] | | | | | | [phone] | | | | | | | | +--------+ + + + + documented as of this encounter Visit Diagnoses Not on filedocumented in this encounter"
--- OUTSIDE RECORDS SUMMARY | ~2020-07-29 | XMS | Encounter Summary ---
Demographics + + + | Address | [address] | | | [place] [address] | + + + | Home Phone [...] [place] | | | | | [address] | | + + + + + Care Team Providers + +------+ + | Care Tapper Supervisor Name | Role | Phone | + +------+ + | Sharon David MD | PCP | | + +------+ + Reason for Visit + +--------+ + | Reason | Onset | Comments | | | Date | | + +--------+ + | Lab Draw | 07/10/ | | | | 2018 | | + +--------+ + Encounter Details +--------+ + + + + | Date | Type | Department | Care Team | Description | +--------+ + + + + | 07/10/ | Abstract | Clinical | Vimal Crowe MD | Lab Draw | | 2019 | | Transplant Services | [address] | | | | | [address] | [address] [place], | | | | | [place], | [place] [address] | | | | | [place] [address] | [phone] | | | | | [phone] | | | +--------+ + + + [...] Rd | | | | | | [place], [place] | | | | | | [address] | | | | | | [phone] | | | | | | | | +--------+ + + + + | 09/27/ | Telephone-S | Liver Transplant | Vimal Crowe MD | | | 2019 | [place] | | [address] | | | | | | [address], | | | | | | [place] [address] | | | | | | [phone] | | | | | | | | +--------+ + + + + | 10/03/ | Appointment | Cardiology | | | | 2019 | | | | | +--------+ + + + + | 10/03/ | Office | Cardiology | Cyril Samuel | | | 2020 | Visit | | MD Patricia [address] | | | | | | [address] | | | | | | [place], [place] | | | | | | [address] | | | | | | [phone] | | | | | | | | +--------+ + + + + documented as of this encounter Procedures + +--------+ + + + | Procedure Name | Priori | Date/Time | Associated Diagnosis | Comments | | | ty | | | | + +--------+ + + + | LIVER PRE-TRANSPLANT | Routin | 07/07/2019 | | Results [...] RESULTS PANEL (FOR EXTERNAL RESULT ENTRY ONLY) (06/21) + + + + + + | Component | Value | Ref Range | Performed | Pathologist | | | | | At | Signature | + + + + + + | SODIUM, | 128 (A) | mmol/L | [facility] | | | [...] + + + + | GLUCOSE, | 542 (A) | 65 - 110 mg/dL | [facility] | | | PLASMA | | | LAB - | | | (LAB) | | | [place] | | + + + + + + | BUN, PLASMA | 50 (A) | mg/dL | [facility] | | | (LAB) | | | LAB - | | | | | | [place] | | + + + + + + | CREATININE | 1.79 (A) | mg/dL | [facility] | | | PLASMA | | | LAB - | | | (LAB) | | | [place] | | + + + + + + | ALBUMIN, | 3.4 (A) | g/dL | [facility] | | | PLASMA | | | LAB - | | | (LAB) | | | [place] | | + + + + + + | BILIRUBIN | 12.8 (A) | Transcutaneous | [facility] | | | TOTAL | | Bilirubinometer | LAB - | | | | | | [place] | | + + + + + + | ALK PHOS | 140 (A) | U/L | [facility] | | | | | | LAB - | | | | | | [place] | | + + + + + + | AST(SGOT) | 53 (A) | U/L | [facility] | | | | | | LAB - | | | | | | [place] | | + + + + + + | ALT (SGPT) | 32 | U/L | [facility] | | | | | | LAB - | | | | | | [place] | | + + + + + + | INR | 2.6 (A) | 0.98 - 1.08 INR | [facility] | | | | | | LAB - | | | | | | [place] | | + + + + + + | WHITE CELL | 6.3 | K/cu mm | [facility] | | | COUNT | | | LAB - | | | | | | [place] | | + + + + + + | HEMATOCRIT | 30.9 (A) | % | [facility] | | | [...] + + + | PLATELET | 57 (A) | K/cu mm | [facility] | | [...] + + | [facility] - | [address] | [place] | [phone] | | [place] | | | | + + + + + documented in this encounter Visit Diagnoses Not on filedocumented in this encounter"
--- OUTSIDE RECORDS SUMMARY | ~2020-07-29 | XMS | Encounter Summary ---
Demographics + + + | Address | [address] | | | [place] [address] | + + + | Home Phone [...] [place] | | | | | [address] | | + + + + + Care Team Providers + +------+ + | Care Certified Meeting Professional Name | Role | Phone | + +------+ + | Sharon David MD | PCP | | + +------+ + Encounter Details +--------+ + + + + | Date | Type | Department | Care Team | Description | +--------+ + + + + | 07/20/ | Pharmacy | [facility] | | | | 2020 | Visit | [address] | | | | | | [address] | | | | | | [place] [address] | | | | | | [phone] | | | +--------+ + + + [...] Rd | | | | | | [place], [place] | | | | | | [address] | | | | | | [phone] | | | | | | | | +--------+ + + + + | 09/27/ | Telephone-S | Liver Transplant | Vimal Crowe MD | | | 2019 | cheduled | | [address] | | | | | | [address], | | | | | | [place] [address] | | | | | | [phone] | | | | | | | [...] Rd | | | | | | [place] | | | | | | [address] | | | | | | [phone] | | | | | | | | +--------+ + + + + documented as of this encounter Visit Diagnoses Not on filedocumented in this encounter"
--- OUTSIDE RECORDS SUMMARY | ~2020-07-29 | XMS | Encounter Summary ---
Demographics + + + | Address | [address] | | | [place] [address] | + + + | Home Phone [...] [place] | | | | | [address] | | + + + + + Care Team Providers + +------+ + | Care Diploma Dental Assistant Name | Role | Phone | + +------+ + | Sharon David MD | PCP | | + +------+ + Encounter Details +--------+ + + + + | Date | Type | Department | Care Team | Description | +--------+ + + + + | 05/17/ | Telephone | Nephrology & | Angélica Chao, | | | 2019 | | [facility] | [address] | | | | | [address] | [address] | | | | | Loop Physician's | [place], [place] | | | | | [place], [facility] floor | [address] | | | | | [place], [place] | [phone] | | | | | [address] | | | | | | [phone] | | | +--------+ + + + [...] Telephone Encounter - Filippo Mccurdy MA - 05/17/2020 12:48 PM PDTExternal lab orders faxed to [facility] in [place] at [phone]. Filippo Mccurdy MA elephone Encounter - S Filippo solorzano MA - 05/17/2020 12:48 PM PDT----- Message from Angélica Chao MD sent at 04/21 10:05 AM PDT ----- Regarding: please fax external labs HI all - can you please fax external labs from 05/16 appt to [facility] in [place]? Thanks, JWeiss documented in this enco unter [...] [address] | | | | | | [place] | | | | | | [address] | | | | | | [phone] | | | | | | | | +--------+ + + + + | 09/27/ | Telephone-S | Liver Transplant | Vimal Crowe MD | | | 2019 | cheduled | | [address] | | | | | | [facility] [place], | | | | | | [place] [address] | | | | | | [phone] | | | | | | | | +--------+ + + + + | 10/03/ | Appointment | Cardiology | | | | 2019 | | | | | +--------+ + + + + | 10/03/ | Office | Cardiology | Cyril Samuel | | | 2019 | Visit | | MD Patricia [address] [facility] | | | | | | [address] | | | | | | [place] | | | | | | [address] | | | | | | [phone] | | | | | | | | +--------+ + + + + documented as of this encounter Visit Diagnoses Not on filedocumented in this encounter"
--- OUTSIDE RECORDS SUMMARY | ~2020-07-29 | XMS | Encounter Summary ---
Demographics + + + | Address | [address] | | | [place] [address] | + + + | Home Phone [...] [place] | | | | | [address] | | + + + + + Care Team Providers + +------+ + | Care Hide And Skin Colerer Name | Role | Phone | + +------+ + | Sharon David MD | PCP | | + +------+ + Encounter Details +--------+ + + + + | Date | Type | Department | Care Team | Description | +--------+ + + + + | 06/21/ | Pharmacy | [facility] | | | | 2020 | Visit | [address] | | | | | | [address] | | | | | | [place] [address] | | | | | | [phone] | | | +--------+ + + + [...] Rd | | | | | | [place], [place] | | | | | | [address] | | | | | | [phone] | | | | | | | | +--------+ + + + + | 09/27/ | Telephone-S | Liver Transplant | Vimal Crowe MD | | | 2019 | cheduled | | [address] | | | | | | [address], | | | | | | [place] [address] | | | | | | [phone] | | | | | | | [...] Rd | | | | | | [place] | | | | | | [address] | | | | | | [phone] | | | | | | | | +--------+ + + + + documented as of this encounter Visit Diagnoses Not on filedocumented in this encounter"
--- OUTSIDE RECORDS SUMMARY | ~2020-07-29 | XMS | Encounter Summary ---
Demographics + + + | Address | [address] | | | [place] [address] | + + + | Home Phone [...] [place] | | | | | [address] | | + + + + + Care Team Providers + +------+ + | Care Diesel Locomotive Firer/Fireman Name | Role | Phone | + +------+ + | Sharon David MD | PCP | | + +------+ + Encounter Details +--------+ + + + + | Date | Type | Department | Care Team | Description | +--------+ + + + + | 05/03/ | Pharmacy | [facility] | | | | 2020 | Visit | [address] | | | | | | [address] | | | | | | [place] [address] | | | | | | [phone] | | | +--------+ + + + [...] [address] | | | | | | [place], [place] | | | | | | [address] | | | | | | [phone] | | | | | | | | +--------+ + + + + | 09/27/ | Telephone-S | Liver Transplant | Vimal Crowe MD | | | 2019 | cheduled | | [address] | | | | | | [address], | | | | | | [place] [address] | | | | | | [phone] | | | | | | | [...] Rd | | | | | | [place] | | | | | | [address] | | | | | | [phone] | | | | | | | | +--------+ + + + + documented as of this encounter Visit Diagnoses Not on filedocumented in this encounter"
--- OUTSIDE RECORDS SUMMARY | ~2020-07-29 | XMS | Encounter Summary ---
Demographics + + + | Address | [address] | | | [place] [address] | + + + | Home Phone [...] [place] | | | | | [address] | | + + + + + Care Team Providers + +------+ + | Care Treating Plant Operator Name | Role | Phone | + +------+ + | Sharon David MD | PCP | | + +------+ + Encounter Details +--------+ + + + + | Date | Type | Department | Care Team | Description | +--------+ + + + + | 09/21/ | Documentati | Clinical | Pattie Ignacio, | | | 2019 | on | Transplant Services | [facility] [address] | | | | | [address] | [address] | | | | | [place], | [place], [place] | | | | | [place] [address] | [address] | | | | | [phone] | [phone] | | | | | | | [...] Encounter - Judie Mota RN - 09/21/2019 11:08 AM PSTPrograf high on a dose of 4/4 decrease to 2/2 per Pattie Ignacio PA-C. Called spoke with Lorelei ( mother) she unders tands the instructions and will make the needed changes. All questions answered. Electronic ally signed by Judie Mota RN at 09/21/2019 11:09 AM PSTdocumented in this encounter Plan of [...] Rd | | | | | | [place], [place] | | | | | | [address] | | | | | | [phone] | | | | | | | | +--------+ + + + + | 09/27/ | Telephone-S | Liver Transplant | Vimal Crowe MD | | | 2019 | [place] | | [address] | | | | | | [address], | | | | | | [place] [address] | | | | | | [phone] | | | | | | | [...] [place] | | | | | | [address] | | | | | | [phone] | | | | | | | | +--------+ + + + + documented as of this encounter Visit Diagnoses Not on filedocumented in this encounter"
--- OUTSIDE RECORDS SUMMARY | ~2020-07-29 | XMS | Encounter Summary ---
Demographics + + + | Address | [address] | | | [place] [address] | + + + | Home Phone [...] [place] | | | | | [address] | | + + + + + Care Team Providers + +------+ + | Care Selvage Machine Operator Name | Role | Phone [...] Closed | | Physical | Diagnoses | Txc Trans | [facility] | | | | Therapy | Liver | Coord Liver | [address] | | | | | replaced by | [address] [facility] | [facility] | | | | | transplant | Sanjay | for Health | | | | | (HCC) | [place] | and Healing, | | | | | Procedures | [place], [place] | [address], | | | | | PHYSICAL | [address] | 1st Floor | | | | | THERAPY | Phone: | [place], [place] | | | | | REFERRAL | [phone] | [address] | | | | | | Fax: | Phone: | | | | | | [phone] | [phone] | | | | | | | Fax: | | | | | | | [phone] | +--------+--------+ + + + + Reason for Visit + +--------+ + | Reason | Onset | Comments | | | Date | | + +--------+ + | Liver Transplant | 10/29/ | PT referral | | Follow Up | 2019 | | + +--------+ + Encounter Details +--------+ + + + + | Date | Type | Department | Care Team | Description | +--------+ + + + + | 10/29/ | Recreation Instructor | Clinical | Cecille Brunner RN | Liver replaced by | | 2019 | | Transplant Services | [address] | transplant (HCC) | | | | [address] | [place], | (Primary Dx) | | | | [place], | [place] | | | | | [place] | | | | | | [phone] | | | +--------+ + + + [...] Telephone Encounter - Cecille Brunner RN - 10/29/2019 3:12 PM PST----- Message ----- From: Marsha Garcia MD Sent: 10/29/2019 2:52 PM PST To: Cecille Brunner RN ----- Message ----- From: Mary Hinson PT Sent: 10/29/2019 9:30 AM PST To: Marsha Garcia MD Requesting an up dated PT order for Donell Duran., as he spent some time in the hospital over the holidays and is now returning to PT again. Let us know if any precautions etc. Thanks Mary Hinson PT documented in this encou nter Plan of Treatment +--------+ + + + + | Date | Type | Specialty | Care Team | Description | +--------+ + + + + | 08/08/ | Telephone-S | Nephrology | Angélica Chao, | | | 2019 | [place] | | [address] | | | | | | [address] | | | | | | [place], [place] | | | | | | [address] | | | | | | [phone] | | | | | | | | +--------+ + + + + | 09/27/ | Telephone-S | Liver Transplant | Vimal Crowe MD | | 2019 | [place] | | [address] | | | | | | [address] | | | | | | [place] [address] | | | | | | [phone] | | | | | | | | +--------+ + + + + | 10/03/ | Appointment | Cardiology | | | | 2019 | | | | | +--------+ + + + + | 10/03/ | Office | Cardiology | Cyril Samuel | | | 2019 | Visit | | MD Patricia [address] [facility] | | | | | | [address] | | | | | | [place], [place] | | | | | | [address] | | | | | | [phone] | | | | | | | | +--------+ + + + + documented as of this encounter Visit Diagnoses + + | Diagnosis | + + | 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
--- OUTSIDE RECORDS SUMMARY | ~2020-07-29 | XMS | Encounter Summary ---
Demographics + + + | Address | [address] | | | [place] [address] | + + + | Home Phone [...] [place] | | | | | [address] | | + + + + + Care Team Providers + +------+ + | Care Bark Fitter Name | Role | Phone | + +------+ + | Sharon David MD | PCP | | + +------+ + Reason for Visit + +--------+ + | Reason | Onset | Comments | | | Date | | + +--------+ + | Liver Transplant | 05/12/ | MELISSA results follow-up | | Follow Up | 2020 | | + +--------+ + Encounter Details +--------+ + + + + | Date | Type | Department | Care Team | Description | +--------+ + + + + | 05/12/ | Documentati | Clinical | Cecille Brunner RN | Liver Transplant | | 2020 | on | Transplant Services | [address] | Follow Up (DEXA | | | | [address] | [place], | results follow-up) | | | | [place], | [place] [address] | | | | | [place] [address] | | | | | | [phone] | | | +--------+ + + + [...] Telephone Encounter - Cecille Brunner RN - 05/12/2020 10:46 AM PDT05/10/20 DEXA completed at [facility] shows dx osteopenia. Results faxed to PCP's office w/ request that we defer to PCP for any management/follow-up he finds appropriate. [employer] message sent to Donell w/ update.Electronically signed by Cecille Brunner RN at 0 10:49 AM PDTdocumented in this encounter Plan of Treatment +--------+ + + + + | Date | Type | Specialty | Care Team | Description | +--------+ + + + + | 08/08/ | Telephone-S | Nephrology | Angélica Chao, | | | 2019 | [place] | | [address] [facility] | | | | | | [address] | | | | | | [place], [place] | | | | | | [address] | | | | | | [phone] | | | | | | | | +--------+ + + + + | 09/27/ | Telephone-S | Liver Transplant | Vimal Crowe MD | | 2019 | cheduled | | [address] | | | | | | [place], | | | | | | [place] [address] | | | | | | [phone] | | | | | | | [...] [place] | | | | | | [address] | | | | | | [phone] | | | | | | | | +--------+ + + + + documented as of this encounter Visit Diagnoses Not on filedocumented in this encounter"
--- OUTSIDE RECORDS SUMMARY | ~2020-07-29 | XMS | Encounter Summary ---
Demographics + + + | Address | [address] | | | [place] [address] | + + + | Home Phone [...] [place] | | | | | [address] | | + + + + + Care Team Providers + +------+ + | Care Size Mixer Name | Role | Phone | + +------+ + | Sharon David MD | PCP | | + +------+ + Encounter Details +--------+ + + + + | Date | Type | Department | Care Team | Description | +--------+ + + + + | 05/23/ | Pharmacy | [facility] | | | | 2020 | Visit | [address] | | | | | | [address] | | | | | | [place] [address] | | | | | | [phone] | | | +--------+ + + + [...] [place] | | | | | | [address] | | | | | | [phone] | | | | | | | | +--------+ + + + + | 09/27/ | Telephone-S | Liver Transplant | Vimal Crowe MD | | | 2019 | cheduled | | [address] | | | | | | [address], | | | | | | [place] [address] | | | | | | [phone] | | | | | | | [...] [address] | | | | | | [place] | | | | | | [address] | | | | | | [phone] | | | | | | | | +--------+ + + + + documented as of this encounter Visit Diagnoses Not on filedocumented in this encounter"
--- OUTSIDE RECORDS SUMMARY | ~2020-07-29 | XMS | Encounter Summary ---
Demographics + + + | Address | [address] | | | [place] [address] | + + + | Home Phone [...] [place] | | | | | [address] | | + + + + + Care Team Providers + +------+ + | Care Senior Network Systems Engineer Name | Role | Phone | + +------+ + | Sharon David MD | PCP | | + +------+ + Encounter Details +--------+ + + + + | Date | Type | Department | Care Team | Description | +--------+ + + + + | 01/10/ | Pharmacy | [facility] | | | | 2020 | Visit | [address] | | | | | | [address] | | | | | | [place] [address] | | | | | | [phone] | | | +--------+ + + + [...] Rd | | | | | | [place], [place] | | | | | | [address] | | | | | | [phone] | | | | | | | | +--------+ + + + + | 09/27/ | Telephone-S | Liver Transplant | Vimal Crowe MD | | | 2019 | cheduled | | [address] | | | | | | [address], | | | | | | [place] [address] | | | | | | [phone] | | | | | | | [...] Rd | | | | | | [place] | | | | | | [address] | | | | | | [phone] | | | | | | | | +--------+ + + + + documented as of this encounter Visit Diagnoses Not on filedocumented in this encounter"
--- OUTSIDE RECORDS SUMMARY | ~2020-07-29 | XMS | Encounter Summary ---
Demographics + + + | Address | [address] | | | [place] [address] | + + + | Home Phone [...] [place] | | | | | [address] | | + + + + + Care Team Providers + +------+ + | Care Inspector Packer Name | Role | Phone | + +------+ + | Sharon David MD | PCP | | + +------+ + Encounter Details +--------+ + + + + | Date | Type | Department | Care Team | Description | +--------+ + + + + | 02/11/ | Pharmacy | [facility] | | | | 2020 | Visit | [address] | | | | | | [address] | | | | | | [place] [address] | | | | | | [phone] | | | +--------+ + + + [...] Rd | | | | | | [place], [place] | | | | | | [address] | | | | | | [phone] | | | | | | | | +--------+ + + + + | 09/27/ | Telephone-S | Liver Transplant | Vimal Crowe MD | | | 2019 | cheduled | | [address] | | | | | | [address], | | | | | | [place] [address] | | | | | | [phone] | | | | | | | [...] Rd | | | | | | [place] | | | | | | [address] | | | | | | [phone] | | | | | | | | +--------+ + + + + documented as of this encounter Visit Diagnoses Not on filedocumented in this encounter"
--- OUTSIDE RECORDS SUMMARY | ~2020-07-29 | XMS | Encounter Summary ---
Demographics + + + | Address | [address] | | | [place] [address] | + + + | Home Phone [...] [place] | | | | | [address] | | + + + + + Care Team Providers + +------+ + | Care Panelboard Assembler Name | Role | Phone | + +------+ + | Sharon David MD | PCP | | + +------+ + Encounter Details +--------+ + + + + | Date | Type | Department | Care Team | Description | +--------+ + + + + | 05/25/ | Pharmacy | [facility] | | | | 2020 | Visit | [address] | | | | | | [address] | | | | | | [place] [address] | | | | | | [phone] | | | +--------+ + + + [...] Rd | | | | | | [place], [place] | | | | | | [address] | | | | | | [phone] | | | | | | | | +--------+ + + + + | 09/27/ | Telephone-S | Liver Transplant | Vimal Crowe MD | | | 2019 | cheduled | | [address] | | | | | | [address], | | | | | | [place] [address] | | | | | | [phone] | | | | | | | [...] Rd | | | | | | [place] | | | | | | [address] | | | | | | [phone] | | | | | | | | +--------+ + + + + documented as of this encounter Visit Diagnoses Not on filedocumented in this encounter"
--- OUTSIDE RECORDS SUMMARY | ~2020-07-29 | XMS | Encounter Summary ---
Demographics + + + | Address | [address] | | | [place] [address] | + + + | Home Phone [...] [place] | | | | | [address] | | + + + + + Care Team Providers + +------+ + | Care Internal Medicine Physician Assistant Name | Role | Phone | + +------+ + | Sharon David MD | PCP | | + +------+ + Encounter Details +--------+--------+ + + + | Date | Type | Department | Care Team | Description | +--------+--------+ + + + | 09/21/ | Travel | | | | | [...] Rd | | | | | | [place], [place] | | | | | | [address] | | | | | | [phone] | | | | | | | | +--------+ + + + + | 09/27/ | Telephone-S | Liver Transplant | Vimal Crowe MD | | | 2019 | [place] | | [address] | | | | | | [address], | | | | | | [place] [address] | | | | | | [phone] | | | | | | | [...] [place] | | | | | | [address] | | | | | | [phone] | | | | | | | | +--------+ + + + + documented as of this encounter Visit Diagnoses Not on filedocumented in this encounter"
--- OUTSIDE RECORDS SUMMARY | ~2020-07-29 | XMS | Encounter Summary ---
Demographics + + + | Address | [address] | | | [place] [address] | + + + | Home Phone [...] [place] | | | | | [address] | | + + + + + Care Team Providers + +------+ + | Care Derrick Builder Name | Role | Phone | + +------+ + | Sharon David MD | PCP | | + +------+ + Encounter Details +--------+ + + + + | Date | Type | Department | Care Team | Description | +--------+ + + + + | 05/13/ | Pharmacy | [facility] | | | | 2020 | Visit | [address] | | | | | | [address] | | | | | | [place] [address] | | | | | | [phone] | | | +--------+ + + + [...] Rd | | | | | | [place], [place] | | | | | | [address] | | | | | | [phone] | | | | | | | | +--------+ + + + + | 09/27/ | Telephone-S | Liver Transplant | Vimal Crowe MD | | | 2019 | cheduled | | [address] | | | | | | [address], | | | | | | [place] [address] | | | | | | [phone] | | | | | | | [...] Rd | | | | | | [place] | | | | | | [address] | | | | | | [phone] | | | | | | | | +--------+ + + + + documented as of this encounter Visit Diagnoses Not on filedocumented in this encounter"
--- OUTSIDE RECORDS SUMMARY | ~2020-07-29 | XMS | Encounter Summary ---
Demographics + + + | Address | [address] | | | [place] [address] | + + + | Home Phone [...] [place] | | | | | [address] | | + + + + + Care Team Providers + +------+ + | Care Janitor And Cleaner Name | Role | Phone | + +------+ + | Sharon David MD | PCP | | + +------+ + Encounter Details +--------+ + + + + | Date | Type | Department | Care Team | Description | +--------+ + + + + | 04/23/ | Procedure | Diagnostic Imaging | | | | 2019 | Pass | Services at [facility] | | | | | | [address] | | | | | | [place] | | | | | | [facility] | | | | | | [place], [place] | | | | | | [address] | | | | | | [phone] | | | +--------+ + + + [...] Rd | | | | | | [place], [place] | | | | | | [address] | | | | | | [phone] | | | | | | | | +--------+ + + + + | 09/27/ | Telephone-S | Liver Transplant | Vimal Crowe MD | | | 2019 | cheduled | | [address] | | | | | | [address], | | | | | | [place] [address] | | | | | | [phone] | | | | | | | [...] Rd | | | | | | [place] | | | | | | [address] | | | | | | [phone] | | | | | | | | +--------+ + + + + documented as of this encounter Visit Diagnoses Not on filedocumented in this encounter"
--- OUTSIDE RECORDS SUMMARY | ~2020-07-29 | XMS | Encounter Summary ---
Demographics + + + | Address | [address] | | | [place] [address] | + + + | Home Phone [...] [place] | | | | | [address] | | + + + + + Care Team Providers + +------+ + | Care Psychotherapist Social Worker Name | Role | Phone | + +------+ + | Sharon David MD | PCP | | + +------+ + Encounter Details +--------+ + + + + | Date | Type | Department | Care Team | Description | +--------+ + + + + | 07/14/ | Pharmacy | [facility] | | | | 2020 | Visit | [address] | | | | | | [address] | | | | | | [place] [address] | | | | | | [phone] | | | +--------+ + + + [...] [place] | | | | | | [address] | | | | | | [phone] | | | | | | | | +--------+ + + + + | 09/27/ | Telephone-S | Liver Transplant | Vimal Crowe MD | | | 2019 | cheduled | | [address] | | | | | | [address], | | | | | | [place] [address] | | | | | | [phone] | | | | | | | [...] Rd | | | | | | [place] | | | | | | [address] | | | | | | [phone] | | | | | | | | +--------+ + + + + documented as of this encounter Visit Diagnoses Not on filedocumented in this encounter"
--- OUTSIDE RECORDS SUMMARY | ~2020-07-29 | XMS | Encounter Summary ---
Demographics + + + | Address | [address] | | | [place] [address] | + + + | Home Phone [...] [place] | | | | | [address] | | + + + + + Care Team Providers + +------+ + | Care Cook Box Filler Name | Role | Phone | + +------+ + | Sharon David MD | PCP | | + +------+ + Reason for Visit + + + | Reason | Comments | + + + | Transplant Status | Reactivate on waitlist | | Change | | + + + Encounter Details +--------+ + + + + | Date | Type | Department | Care Team | Description | +--------+ + + + + | 07/21/ | Documentati | Clinical | Haley Fernández, | Transplant Status | | 2019 | on | Transplant Services | RN [address] | Change (Reactivate | | | | [address] | [address] | on waitlist) | | | | [place], | [place], [place] | | | | | [place] [address] | [address] | | | | | [phone] | | | +--------+ + + + [...] encounter Miscellaneous Notes Telephone Encounter - Haley Fernándze RN - 07/21/2019 4:54 PM PDTNotified by inpatient Hepatology team (Drs. Baldwin/Michael) to reactivate Mr. Duran on the liver transplant waitlist - DONE. Patient to be notified by inpatient team. Current MELD 39, ABO A. Notified attending surgeon, Dr. Weeks. documented in this encounter Plan of Treatment +--------+ + + + + | Date | Type | Specialty | Care Team | Description | +--------+ + + + + | 08/08/ | Telephone-S | Nephrology | Angélica Chao, | | | 2019 | [place] | | [address] | | | | | | [address] | | | | | | [place], [place] | | | | | | [address] | | | | | | [phone] | | | | | | | | +--------+ + + + + | 09/27/ | Telephone-S | Liver Transplant | Vimal Crowe MD | | | 2019 | cheduled | | [address] | | | | | | [address], | | | | | | [place] [address] | | | | | | [phone] | | | | | | | | +--------+ + + + + | 10/03/ | Appointment | Cardiology | | | | 2019 | | | | | +--------+ + + + + | 10/03/ | Office | Cardiology | Cyril Samuel | | | 2019 | Visit | | MD Patricia [address] | | | | | | [address] | | | | | | [place], [place] | | | | | | [address] | | | | | | [phone] | | | | | | | | +--------+ + + + + documented as of this encounter Visit Diagnoses Not on filedocumented in this encounter"
--- OUTSIDE RECORDS SUMMARY | ~2020-07-29 | XMS | Encounter Summary ---
Demographics + + + | Address | [address] | | | [place] [address] | + + + | Home Phone [...] [place] | | | | | [address] | | + + + + + Care Team Providers + +------+ + | Care Services Host Name | Role | Phone | + +------+ + | Sharon David MD | PCP | | + +------+ + Encounter Details +--------+ + + + + | Date | Type | Department | Care Team | Description | +--------+ + + + + | 04/21/ | Pharmacy | [facility] | | | | 2020 | Visit | [address] | | | | | | [address] | | | | | | [place] [address] | | | | | | [phone] | | | +--------+ + + + [...] Rd | | | | | | [place], [place] | | | | | | [address] | | | | | | [phone] | | | | | | | | +--------+ + + + + | 09/27/ | Telephone-S | Liver Transplant | Vimal Crowe MD | | | 2019 | cheduled | | [address] | | | | | | [address], | | | | | | [place] [address] | | | | | | [phone] | | | | | | | [...] Rd | | | | | | [place] | | | | | | [address] | | | | | | [phone] | | | | | | | | +--------+ + + + + documented as of this encounter Visit Diagnoses Not on filedocumented in this encounter"
--- OUTSIDE RECORDS SUMMARY | ~2020-07-29 | XMS | Encounter Summary ---
Demographics + + + | Address | [address] | | | [place] [address] | + + + | Home Phone [...] [place] | | | | | [phone] | | + + + + + Care Team Providers + +------+ + | Care Immigration Officer Name | Role | Phone | + +------+ + | Sharon David MD | PCP | | + +------+ + Reason for Visit + + + | Reason | Comments | + + + | Hypotension | | + + + | SVT - | | | Supraventricular | | | tachycardia | | + + + AUTH/CERT +--------+--------+ [...] + + + + | 04/21/ | Hospital | [facility] [address] | Antione Talbot MD [address] | | | 2019 - | Encounter | [id number] | [address] | | | | | [facility] | [facility], [place] | | | 04/24/ | | [place], [place] | [address] | | | 2019 | | [address] | [phone] | | | | | [phone] | | | | | | | Jenifer Akins MD | | | | | | [address] | | | | | | [place] Olive[place], | | | | | | [place] [address] | | | | | | [phone] | | | | | | | | | | | | Benja Doss MD | | | | | | [address] | | | | | | [facility] | | | | | | [place], [place] | | | | | | [address] | | | | | | [phone] | | | | | | | | | | | | Karishma Carr MD | | | | | | [address] [place] | | | | | | [address] [place], | | | | | | [place] [address] | | | | | | [phone] | | | | | | | | | | | | Donell Corral MD | | | | | | [address] [place] | | | | | | [address] [place], | | | | | | [place] [address] | | | | | | [phone] | | | | | | | | | | | | Alberto Hawkins | | | | | | MD [place]ay[place] [address] | | | | | | [facility] | | | | | | [place], [place] | | | | | | [address] | | | | | | [phone] | | | | | | | [...] + + + | Blood Pressure | 100/51 | 04/24/2019 12:05 PM | | | | | PDT | | + + + + + | Pulse | 62 | 04/24/2019 12:05 PM | | | | | PDT | | + + + + + | Temperature | 36.5 C (97.7 F) | 04/24/2019 7:49 AM | | | | | PDT | | + + + + + | Respiratory Rate | 16 | 04/24/2019 12:05 PM | | | | | PDT | | + + + + + | Oxygen Saturation | 99% | 04/24/2019 12:05 PM | | | | | PDT | | + + + + + | Inhaled Oxygen | - | - | | | Concentration | | | | + + + + + | Weight | 86.2 kg (190 lb 0.6 | 04/24/2019 4:45 AM | | | | oz) | PDT | | + + + + + | Height | 180.3 cm (5' 11") | 04/21/2019 11:32 PM | | | | | PDT | | + + + + + | Body Mass Index | 26.5 | 04/21/2019 11:32 PM | | | [...] documented as of this encounter Discharge Summaries Andriy Lewis PA-C - 04/24/2019 8:41 AM PDTFormatting of this note might be differe nt from the original. 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 At baseline left ventricular [...] > 85% age predicted maximal heart rate. Involved Consultants (Service/Contact Name) 1) Hepatology/Richard Reese MD 2) Cardiology/Tiny Barney MD 3) Dentistry/Maddy Vargas DDS 4) Hematology/Ephraim Bellamy MD Reason For Admission: Donell Duran is a54 yo man with ESLDd/t ETOHc/b decompensated cirrhosis, CKD with recent HRS who presented with asymptomatic SVT in setting of dobutamine stress test. Hospital Course: ESLD 2/2 to ETOH: MELD 32, undergoing OLT w/u. Appears overall compensated at this time, tolerating diuretics well and lactulose.Completed inpatient work-up for transplant and will be potentially lis jeannette Saturday the . Will need biweekly labs until then. Pt plans to stay in [place] with his aunt and uncle to stay local until his transplant -CMP, CBC, INR bi-weekly per transplant team -pt will resume home lasix 20mg, spironolactone 50mg, lactulose on discharge -cont lactulose to 3-4 BMs/day -restart lasix/spiron at half home doses 20mg/50mg (home dose 40/100) -F/U PETH Anemia requiring transfusions: With concerns for low-grade hemolysis (fractionated bili, hi gh LDH), requiring transfusions x2 per month as outpt, also notably has iron deposition conc erning for hemochromatosis seen on MRI abd. No varices that would be contributing to blood l oss from PHG, no significant splenomegaly on imaging. 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 They would consider chelation post-transplant if there is evidence of iron overload on cardiac MRI -cardiac MRI pending to look for iron deposition -Hematology reccommending limiting transfusions as much as possible SVT Hypotension Rates of 160-180s, resolved with carotid massage and subsequently adenosine x 1 in ED. No h istory of arrhythmias in past. Previous TTE with mild otherwise no valvular abnormalities . No symptoms to suggest ACS. Proarhythmic nature of dobutamine likely precipitated this. Wi ll cont low-dose metop per Cards as he is at risk of recurrence but otherwise does not need any further cardiac risk stratification prior to surgery -Cont metop 12.5mg q 6h CKD stage III Cr baseline uptrending over past 2-3 months, stable at ~1.6-1.7. Hepatology felt most consi stent with T2HRS. Cr at baseline. At risk for further renal insult given his hypotension and SVT. Improved after transfusion Discharge physical exam Vital Signs at discharge: BP: 104/59 (04/24/19410) Pulse: 62 (04/24/19410) Resp: 14 (410) Weight: 86.2 kg (190 lb 0.6 oz) (04/24/19444) Body mass index is 26.5 kg /m. General Appearance: Alert and interactivejaundiced adult manin NAD HEENT: NCAT, PERRL, scleraeicteric, mucosamois Neck: Supple, no LAD , no JVD Respiratory: OnRAEven and unlabored,CTAB Cardiovascular: RRR, no m/r/g Gastrointestinal: Soft, NT, ND, BS+ Musculoskeletal: WWP, no edema Skin: No rashes or lesions Neurologic: A&Ox4, Non-focal, Psychiatric: Affect baseline Medication List START taking these medications metoprolol tartrate 25 mg Tab Commonly known as: LOPRESSOR Take 0.5 tablets by mouth every six hours. Indications: Paroxysmal Supraventricular Tachyca rdia CONTINUE taking these medications furosemide 20 mg Tab Commonly known as: LASIX Take 2 tablets by mouth two times daily. lactulose 10 gram/15 mL Soln Commonly known as: ENULAC Take 15 mL by mouth two times daily. spironolactone 100 mg Tab Commonly known as: ALDACTONE Take 1 tablet by mouth once daily. Imaging: MRI abdomen 04/22/19 1. Cirrhosis with portal hypertension. No definite focal liver lesion. 2. Extensive signal loss on both T1 and T2-weighted images in the liver, pancreas, and willie l cortices suggestive of iron deposition as can be seen with primary hemochromatosis. Outstanding diagnostic studies requiring followup: Zinc, copper, HIV, MMA, PETH Condition on discharge: stable Discharge destination: To family member in [place], [place] to remain close to [facility] pending OLT Call: Sharon David MD If you have any of the following: Difficulty breathing or unusual shortness of breath Excessive bleeding, drainage at the operative site Fevers, chills, increased pain that is not relieved by pain medications Persistent nausea or vomiting Discharge Summary Completed on 04/24/19 Discharging Provider: Andriy Lewis PA-C Discharging Attending: NATIVIDAD HAWKINS MD CLINICAL HOSPITALIST SERVICE ALEX Okeefe PA-C [facility] 11K Clinical Instructor Division of Hospital Medicine Department of Medicine [facility] [id number] [place] [address] Please CC to: Primary Care Physician Sharon David MD [facility] [address] [place] [address] documented in t his encounter Discharge Instructions Instructions Shalom Henson RN - 04/24/2019Patient Education Materials: Additional Instructions: reviewed MD discharge instructions with patient and answered quest ions. Discharge Nurse: SHALOM HENSON RN Date: 04/24/2019 Discharge Time: 6:41 PM documented in this encounter Progress Notes Amaris Medina LCSW - 04/24/2019 9:48 AM PDTLiver Transplant Social Work Note: JACOBY called and spoke with pt's substance use counselor, Meera Vergara from [facility]. Meera reports pt came in for an initial screening in January 2019 and com pleted a substance use evaluation in February 2019. The treatment recommendation is for pt to eng age in individual counseling. Per Meera pt has followed through on everything asked of him w ith a positive attitude. Meera feels pt has been doing really well and she has never had a c oncern about him drinking. His UA's have been negative. Meera reports pt is afraid of and dying and is motivated to remain sober. They have been trying to meet weekly, however du e to pt's health and [place] vacation they have not been able to meet weekly at this point. Jorge L andrews last saw pt on April 08. Meera has a relapse prevention workbook she is planning to quintana ve pt utilize and is also planning to get him involved in AA with a sponsor. Meera will fax typewriter operator automatic a copy of his substance use evaluation. WINIFRED Mckenzie, JACOBY Clinical Transplant Float Janitor Pager: [phone] signed by Amaris Medina LCSW at 04/24/2019 9:49 AM Richard Rajput MD - 04/24/2019 7:16 AM PDTFormatting of this note might be different from the or iginal. Hepatology Follow-Up Note Transplant Status: Approved for evaluation Blood Type: A+ MELD-Na: 30 IMPRESSION: Doug Duran is a 54 y.o. male withEtOH cirrhosis, history of recent alcoholic he patitis 06/2018complicated by ascites andHRS type 2, admittedafter he developed self-li mited SVT during DSEand hospitalized for inpatient evaluation for liver transplantation ev aluation due to his high meld of 34. He reports last EtOH use was 06/2018 and he has had pers istently negative Peth 10/2018 and 02/2019. Overall he is asymptomatic but due to his high luz elena d we suggest completion of inpatient evaluation for liver transplantation. Cardiology evalua jeannette 04/22 and suggested starting metoprolol for his SVT; no signs of ischemia on DSE and no ca rdiac contraindications to liver transplantation. Also evaluated by dental with plans for ex traction of 6 teeth post-OLT. 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 As his MELD score has been reducing and georgette eduardo has completed all transplantation work up, plan on presenting his case 04/30 to selection c onference. RECOMMENDATIONS: - Daily CBC, CMP, direct bilirubin, INR while hospitalized - Sodium restricted diet - Continue lactulose titrated to 3-5 BM daily - Continue lasix 20 mg and spironolactone 50 mg daily - Follow up final cardiac MRI and tobacco results - Appreciate cardiology, hematology, dental, SW, nutrition input - Plan to present in selection conference next week. We will continue to follow. This plan was discussed and formulated with the Hepatology atte Dr. Michael cruz. Please call the Hepatology fellow with any questions. Richard Reese MD Fellow, Gastroenterology Pager: [phone] INTERVAL HISTORY: - Seen by hematology, c/w spur cell anemia - Labs/MELD appear to be continually improving - Currently asymptomatic EXAM BP 104/59 (BP Location: Right upper arm, Patient Position: Lying on back) | Pulse 62 | Te mp 37 C (98.6 F) (Oral) | Resp 14 | Ht 1.803 m (5' 11") | Wt 86.2 kg (190 lb 0.6 oz) | SpO2 100% | BMI 26.50 kg/m | BSA 2.08 m Systolic (24hrs), Av , Min:96 , Max:116 Diastolic (24hrs), Av, Min:50, Max:63 Pulse Av Min: 57 Max: 62 Temp Av.6 C (97.8 F) Min: 36.3 C (97.3 F) Max: 37 C (98.6 F) Resp Av.7 Min: 14 Max: 16 SpO2 Av.9 % Min: 99 % Max: 100 % GEN: NAD, jaundice HEENT: MMM, scleral icterus RESP: CTAB anteriorly CV: RRR, no MRG ABD: non tender, mildly distended, no rebound or guarding, normal BS MSK: no peripheral edema CBC with diff last 72 hours (or 3 results) - Refreshable Recent Labs 04/21/19 0839 04/21/19 1509 04/22/19 0424 04/22/19 1828 04/23/19 0638 04/24/19 0421 WBC 11.08* 8.26 7.30 < > 7.57 6.99 6.57 HB 8.9* 7.6* 6.5* < > 9.7* 8.4* 8.5* HCT 25.0* 20.7* 18.4* < > 27.4* 23.0* 23.5* PLT 77* 52* 51* < > 62* 50* 49* NEUTROPERC 82.0* 79.6* 70.0 -- -- -- -- LYMPHPERC 8.3* 9.4* 18.6 -- -- -- -- MONOPERC 7.5 9.0 9.3* -- -- -- -- BASOPERC 0.5 0.4 0.4 -- -- -- -- EOSPERC 1.1 0.6* 1.2 -- -- -- -- < > = values in this interval not displayed. Recent Labs 04/22/19 04204/23/19 0638 04/24/19 0421 NA 132* 131* 131* K 4.4 4.4 4.6 CL 99 99 99 BICARB 24 24 25 BUN 56* 48* 43* CR 1.52* 1.29 1.20 GLU 156* 140* 115* CA 8.9 8.7 8.6 AST 67* 68* 69* ALT 43 41 40 AP 139* 147* 151* TBILI 11.0* 10.8* 9.9* TP 6.3* 6.5 6.7 ALB 2.5* 2.6* 2.5* ANIONGAP 9 8 7 ANIONALBCOR 12* 11 10 Lab Results Component Value Date INRPT 2.73 (H) 04/24/2019 [facility] , Richard - 0 04/23/2019 9:10 AM PDT Hepatology Follow-Up Note Transplant Status: Approved for evaluation Blood Type: A+ MELD-Na: 32 IMPRESSION: Doug Duran is a 54 y.o. male with EtOH cirrhosis, history of recent alcoholic hep atitis 06/2018 complicated by ascites and HRS type 2, admitted after he developed self-limite d SVT during DSE and hospitalized for inpatient evaluation for liver transplantation evaluat ion due to his high meld of 34. He reports last EtOH use was 06/2018 and he has had persisten tly negative Peth 10/2018 and 02/2019. Overall he is asymptomatic but due to his high meld we suggest completion of inpatient evaluation for liver transplantation. Cardiology evaluated and suggested starting metoprolol which has been difficult to tolerate due to hypotension . No signs of ischemia on DSE and no cardiac contraindications to liver transplantation. Als o evaluated by dental with plans for extraction of 6 teeth post-OLT. He has had persistent a nemia and there is possible hemolysis with indirect hyperbilirubinemia; can consider spur ce ll anemia. RECOMMENDATIONS: - Daily CBC, CMP, direct bilirubin, INR - Sodium restricted diet - Continue lactulose titrated to 3-5 BM daily - Resume lasix 20 mg and spironolactone 50 mg daily - Transfuse PRN - Please vaccinate for HBV, pneumonia, and TDAP - Appreciate cardiology and dental input We will continue to follow. This plan was discussed and formulated with the Hepatology atte anthony, Dr. Rodriguez. Please call the Hepatology fellow with any questions. Richard Reese MD Fellow, Gastroenterology Pager: [phone] INTERVAL HISTORY: - No acute events overnight - Seen by cardiology, dental, nutrition, SW yesterday EXAM BP 96/50 (BP Location: Left upper arm, Patient Position: Lying on back) | Pulse 59 | Temp 36.4 C (97.5 F) (Oral) | Resp 16 | Ht 1.803 m (5' 11") | Wt 84 kg (185 lb 3 oz) | S pO2 100% | BMI 25.83 kg/m | BSA 2.05 m Systolic (24hrs), Av , Min:90 , Max:98 Diastolic (24hrs), Av, Min:44, Max:55 Pulse Av.3 Min: 59 Max: 64 Temp Av.6 C (97.9 F) Min: 36.3 C (97.3 F) Max: 36.9 C (98.4 F) Resp Av Min: 16 Max: 16 SpO2 Av.5 % Min: 97 % Max: 100 % GEN: NAD, jaundice HEENT: MMM, scleral icterus RESP: CTAB anteriorly CV: RRR, no MRG ABD: non tender, mildly distended, no rebound or guarding, normal BS MSK: no peripheral edema CBC with diff last 72 hours (or 3 results) - Refreshable Recent Labs 04/21/19 0839 04/21/19 1509 04/22/19 0424 04/22/19 0926 04/22/19 1828 04/23/19 0638 WBC 11.08* 8.26 7.30 6.46 7.57 6.99 HB 8.9* 7.6* 6.5* 6.5* 9.7* 8.4* HCT 25.0* 20.7* 18.4* 18.0* 27.4* 23.0* PLT 77* 52* 51* 56* 62* 50* NEUTROPERC 82.0* 79.6* 70.0 -- -- -- LYMPHPERC 8.3* 9.4* 18.6 -- -- -- MONOPERC 7.5 9.0 9.3* -- -- -- BASOPERC 0.5 0.4 0.4 -- -- -- EOSPERC 1.1 0.6* 1.2 -- -- -- Recent Labs 04/21/19 1509 04/22/19 0424 04/23/19 0638 NA 131* 132* 131* K 4.8 4.4 4.4 CL 96* 99 99 BICARB 26 24 24 BUN 56* 56* 48* CR 1.70* 1.52* 1.29 GLU 141* 156* 140* CA 9.3 8.9 8.7 AST 82* 67* 68* ALT 52 43 41 AP 171* 139* 147* TBILI 15.2* 11.0* 10.8* TP 7.5 6.3* 6.5 ALB 3.0* 2.5* 2.6* ANIONGAP 9 9 8 ANIONALBCOR 11 12* 11 Lab Results Component Value Date INRPT 2.94 (H) 04/23/2019 Andriy Jha PA-C - 04/23/2019 7:52 AM PDT INPATIENT PROGRESS NOTE CLINICAL HOSPITALIST SERVICE Hospital Day:2 Author; ANDRIY LEWIS PA-C Attending Physician: Donell Corral MD Interval Hx: NAEO, VSS, pt seen by Cards yesterday after run of SVT who recommend continuin g low-dose BB. Seen by Dental, no plans for extractions prior to transplant Subj: No new complaints, in good spirits, feels otherwise well. No complaints today Physical Exam: Last Vitals: BP 98/49 (BP Location: Right upper arm, Patient Position: Lying on back;Sittin g) | Pulse 64 | Temp 36.8 C (98.2 F) (Oral) | Resp 16 | Ht 1.803 m (5' 11") | Wt 84 kg (185 lb 3 oz) | SpO2 98% | BMI 25.83 kg/m | BSA 2.05 m O2 Delivery Device: None (room air) (04/23/19 0345) 24 Hour Vital Min/Max: Systolic (24hrs), Av , Min:90 , Max:99 Diastolic (24hrs), Av, Min:44, Max:55Pulse Min: 59 Max: 64 Temp Min: 36.3 C (97.3 F) Max: 36.9 C (98.4 F) Resp Min: 16 Max: 16 SpO2 Min: 97 % Max: 100 % Intake/Output Summary (Last 24 hours) at 04/23/2019 0757 Last data filed at 04/23/2019 0345 Gross per 24 hour Intake 2235 ml Output 0 ml Net 2235 ml General Appearance: Alert and interactive jaundiced adult man in NAD HEENT: NCAT, PERRL, sclerae icteric, mucosa mois Neck: Supple, no LAD , no JVD Respiratory: On RA Even and unlabored, CTAB Cardiovascular: RRR, no m/r/g Gastrointestinal: Soft, NT, ND, BS+ Musculoskeletal: WWP, no edema Skin: No rashes or lesions Neurologic: A&Ox4, Non-focal, +trace asterixis Psychiatric: Affect baseline Labs: Notable for Chemistries: Last 72 Hours (or 3 results): Recent Labs 04/21/19 1509 04/22/19 0424 04/23/19 0638 NA 131* 132* 131* K 4.8 4.4 4.4 CL 96* 99 99 BICARB 26 24 24 BUN 56* 56* 48* EGFRAFRICAN 51* 58* >60 CR 1.70* 1.52* 1.29 GLU 141* 156* 140* CA 9.3 8.9 8.7 MG 1.8 2.4 -- CBC with diff last 72 hours (or 3 results) Recent Labs 04/21/19 0839 04/21/19 1509 04/22/19 0424 04/22/19 0926 04/22/19 1828 04/23/19 0638 WBC 11.08* 8.26 7.30 6.46 7.57 6.99 HB 8.9* 7.6* 6.5* 6.5* 9.7* 8.4* HCT 25.0* 20.7* 18.4* 18.0* 27.4* 23.0* PLT 77* 52* 51* 56* 62* 50* NEUTROPERC 82.0* 79.6* 70.0 -- -- -- LYMPHPERC 8.3* 9.4* 18.6 -- -- -- MONOPERC 7.5 9.0 9.3* -- -- -- BASOPERC 0.5 0.4 0.4 -- -- -- EOSPERC 1.1 0.6* 1.2 -- -- -- MELD-Na score: 32 at 04/23/2019 6:38 AM MELD score: 30 at 04/23/2019 6:38 AM Calculated from: Serum Creatinine: 1.29 mg/dL at 04/23/2019 6:38 AM Serum Sodium: 131 mmol/L at 04/23/2019 6:38 AM Total Bilirubin: 10.8 mg/dL at 04/23/2019 6:38 AM INR(ratio): 2.94 INR at 04/23/2019 6:38 AM Age: 54 years Imaging: MRI abdomen 04/22/19 1. Cirrhosis with portal hypertension. No definite focal liver lesion. 2. Extensive signal loss on both T1 and T2-weighted images in the liver, pancreas, and willie l cortices suggestive of iron deposition as can be seen with primary hemochromatosis. Dobutamine stress Final Impressions: 1. At baseline left ventricular [...] > 85% age predicted maximal heart rate. Assessment and Plan: Donell Duran is a 54 yo man with ESLD d/t ETOH c/b decompensated cirrhosis, CKD with recent HR S who presented with asymptomatic SVT in setting of dobutamine stress test. ESLD 2/2 to ETOH: MELD 32, undergoing OLT w/u. Appears overall compensated at this time, tolerating diuretics well and lactulose. Will continue transplant w/u here -CMP, INR daily -cont lactulose to 3-4 BMs/day -restart lasix/spiron at half home doses 20mg/50mg (home dose 40/100) -F/U PETH -Hep B given, outside PCV and Tdap requested by Rx Anemia requiring transfusions: With concerns for low-grade hemolysis (fractionated bili, hi gh LDH), requiring transfusions x2 per month as outpt, also notably has iron deposition conc erning for hemochromatosis seen on MRI abd. No varices that would be contributing to blood l oss from PHG, no significant splenomegaly on imaging. Did have genetic testing for hemochrom atosis but unsure if this would cover all variants. Could be iron load from frequent transfu sions? Will have hematology weigh in prior to OLT -Heme consult, appreciate recs -CBC daily -Transfuse PRN Hg<7 and/or Hct<20 SVT Hypotension Rates of 160-180s, resolved with carotid massage and subsequently adenosine x 1 in ED. No h istory of arrhythmias in past. Previous TTE with mild otherwise no valvular abnormalities . No symptoms to suggest ACS. Proarhythmic nature of dobutamine likely precipitated this. Wi ll cont low-dose metop per Cards as he is at risk of recurrence but otherwise does not need any further cardiac risk stratification prior to surgery -metop 12.5mg q 6 -goal K>4, Mg>2 - telemetry for now CKD stage III Cr baseline uptrending over past 2-3 months, stable at ~1.6-1.7. Hepatology felt most consi stent with T2HRS. Cr at baseline. At risk for further renal insult given his hypotension and SVT. - daily BMP - strict I/Os FEN: regular VTE: heparin CODE: FULL Family: mom and sister at bedside DISPO: May remain in-house until OLT, will d/w Liver team Andriy Lewis PA-C #[id number] Attending: Antwon Corral MD Clinical Hospitalist Service Associated attestation - Donell Corral MD - 04/24/2019 7:48 AM PDTI reviewed the primary data in the medical record and agree with the co-formulated assessment and plan as documente d by Andriy Lewis PA-C. Jaime Manleyuel - 04/23/2019 7:46 AM PDT Medical Student Note for Educational Purposes Internal Medicine Clinical Hospitalist Service Progress Note 24 Hour Events: - Cardio eval: No cardiac contraindication to transplant. No further work up needed for SVT - H/H after tranfusion increased to 9.7/27. - MRI showed no acities, cirrhosis with portal hypertension. No definite focal liver lesion . Signal loss of imagines suggestive of iron deposition Current Symptoms: No new complaints. Has been trying to eat more. Had 7 bms yesterday without signs of blood or melena. No cp, sob, N/V/D. Current Medications: acetaminophen (TYLENOL) tablet 325-650 mg, 325-650 mg, oral, Q4H PRN bisacodyl (DULCOLAX) suppository 10 mg, 10 mg, rectal, DAILY PRN diphtheria-acellular pertussis-tetanus (ADACEL (booster), Tdap) injection 0.5 mL, 0.5 mL, i ntramuscular, ONE TIME DURING VISIT heparin injection 5,000 Units, 5,000 Units, subcutaneous, Q12H (Scheduled) lactulose (ENULAC) liquid 20 g, 30 mL, oral, TID ondansetron ODT (ZOFRAN ODT) tablet 8 mg, 8 mg, oral, Q12H PRN [START ON 04/28/2019] pneumococcal (23-valent) polysaccharide vaccine (PNEUMOVAX) injection 0 .5 mL, 0.5 mL, intramuscular, ONCE polyethylene glycol (MIRALAX) packet 17 g, 17 g, oral, DAILY polyethylene glycol (MIRALAX) packet 34 g, 34 g, oral, TID PRN prochlorperazine (COMPAZINE) injection 5-10 mg, 5-10 mg, intravenous, Q6H PRN prochlorperazine (COMPAZINE) tablet 5-10 mg, 5-10 mg, oral, Q6H PRN senna-docusate (SENOKOT S) 8.6-50 mg 2 tablet, 2 tablet, oral, BID Physical Examination: Last 24 hour min/max Temp: 36.8 C (98.2 F) Temp Min: 36.3 C (97.3 F) Max: 36.9 C (98.4 F) Pulse: 64 Pulse Min: 59 Max: 64 Resp: 16 Resp Min: 16 Max: 16 BP: 98/49 BP Min: 90/44 Max: 99/51 SpO2: 98 % SpO2 Min: 97 % Max: 100 % Body mass index is 25.83 kg/m. Intake/Output Summary (Last 24 hours) at 04/23/19 0700 Last data filed at 04/23/19 0345 Gross per 24 hour Intake 2235 ml Output 0 ml Net 2235 ml General: Alert and oriented. Eating breakfast. Cardiovascular: RRR, 2/6 systolic murmur heard at LSB. Respiratory: CTAB Abdomen: Nontender, normoactive BS, no rebound/guarding Extremities: Trace edema in LE up to mid delgadillo. Circular abrasion without bleeding, discharg e or erythema. Neuro: Following commands, moves all extremities spontaneously Skin: Jaundice throughout. Laboratory Interpretation: CBC with diff last 72 hours (or 3 results) Recent Labs 04/21/19 0839 04/21/19 1509 04/22/19 0424 04/22/19 0926 04/22/19 1828 04/23/19 0638 WBC 11.08* 8.26 7.30 6.46 7.57 6.99 HB 8.9* 7.6* 6.5* 6.5* 9.7* 8.4* HCT 25.0* 20.7* 18.4* 18.0* 27.4* 23.0* PLT 77* 52* 51* 56* 62* 50* NEUTROPERC 82.0* 79.6* 70.0 -- -- -- LYMPHPERC 8.3* 9.4* 18.6 -- -- -- MONOPERC 7.5 9.0 9.3* -- -- -- BASOPERC 0.5 0.4 0.4 -- -- -- EOSPERC 1.1 0.6* 1.2 -- -- -- Chemistries: Last 72 Hours (or 3 results): Recent Labs 04/21/19 1509 04/22/19 0424 04/23/19 0638 NA 131* 132* 131* K 4.8 4.4 4.4 CL 96* 99 99 BICARB 26 24 24 BUN 56* 56* 48* CR 1.70* 1.52* 1.29 CA 9.3 8.9 8.7 MG 1.8 2.4 -- Liver Tests: Last 72 hours (or 3 results) Recent Labs 04/21/19 1509 04/22/19 0424 04/23/19 0638 AST 82* 67* 68* ALT 52 43 41 TBILI 15.2* 11.0* 10.8* AP 171* 139* 147* ALB 3.0* 2.5* 2.6* TP 7.5 6.3* 6.5 Coag Panel: No components found for: INR Lab Results Lab Test Name Results Date/Time APTT 69.8 04/23/19 FIBRINOGEN 191 04/23/19 Cards: Lab Results Component Value Date TROPONIN 0.09 04/21/2019 TROPONIN 0.09 04/21/2019 URINE MICRO Results for orders placed or performed during the hospital encounter of 04/21/19 URINE, MICROSCOPIC EXAM Result Value Ref Range RED CELLS 6 (H) 0 - 3 /hpf WHITE CELLS <1 0 - 5 /hpf BACTERIA None None /hpf YEAST (LAB) None None /hpf SQUAMOUS EPITHELIAL None None, Few /hpf MUCOUS None None, Few /hpf NON-SQUAMOUS EPITH None None /hpf HYALINE CASTS 0 0 - 2 /lpf GRANULAR CASTS 0 0 - 2 /lpf CELLULAR CASTS 0 <=0 /lpf TRIPLE P04 CRYSTALS None None, Few /hpf CALCIUM OXALATE RAMÓN None None, Few /hpf URIC ACID CRYSTALS None None, Few /hpf AMORPHOUS CRYSTALS None None, Few /hpf Imaging Interpretation: MRI Abdomen 04/22 1. Cirrhosis with portal hypertension. No definite focal liver lesion. 2. Extensive signal loss on both T1 and T2-weighted images in the liver, pancreas, and willie l cortices suggestive of iron deposition as can be seen with primary hemochromatosis. Chest x-ray 04/22 Clear lungs. Compression deformities in the lower thoracic spine, most likely chronic, alth ough age indeterminate. MRI cholangiograph WWO contrast 11/19/18 1. Cirrhosis with portal hypertension. No focal lesion. 2. Diffuse hepatic signal loss on in-phase imaging with more prominent focal signal loss ab out the hepatic veins, and similar signal loss involving the pancreatic body/tail. These fin dings reflect abnormal iron deposition, either due to underlying cirrhosis or primary hemach romatosis. 3. Cholelithiasis without associated inflammatory changes. No biliary ductal dilatation. Dobutamine stress echo 04/21/19 1. At baseline left ventricular systolic function is normal. 2. There were no ischemic ECG changes during stress. There were frequent PAC during stress and two sustained runs of SVT during recovery. 3. At peak stress the LV function augments normally (See comments below). 4. Echo negative for ischemia. 5. Low risk dobutamine stress echo with > 85% age predicted maximal heart rate. TTE 03/19/19 1. The left ventricular size is normal. 2. The LV function is normal. 3. Right ventricular size, thickness and function are normal. 4. The aortic valve is trileaflet and moderately calcified. 5. Mild aortic stenosis. 6. There are no prior exams available for comparison. Micro: RPR serum 04/21: negative MELD-Na score: 32 at 04/23/2019 6:38 AM MELD score: 30 at 04/23/2019 6:38 AM Calculated from: Serum Creatinine: 1.29 mg/dL at 04/23/2019 6:38 AM Serum Sodium: 131 mmol/L at 04/23/2019 6:38 AM Total Bilirubin: 10.8 mg/dL at 04/23/2019 6:38 AM INR(ratio): 2.94 INR at 04/23/2019 6:38 AM Age: 54 years Assessment Doug Duran is a 54 y.o. male with ESLD, CKD III, HRS who [facility] in the setting of dobutamine stress test. Plan #ESLD with HRS Pt is currently being evaluated for transplant by [facility] liver transplant service. 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 He is currently clinically stable with no active sources of bleeding or signs of infection . Continue management per Liver transplant protocol - Sodium restricted diet. Encouraged adequate PO intake and activity level - Continue lactulose titrated to 3-5 BM daily - Transfuse PRN - Daily CBC, CMP, direct bilirubin, INR - Repeat PETH - no need for SBP prophylaxis #SVT Cardio evaluated pt and felt there was no cardiac contraindication to transplant or further workup necessary. Recommended continue BB. - Metoprolol 12.25 mg bid - Appreciate cardiology recommendations #Hypotension BP has been 90's-100's/40's-50's. Upon review of BP at office visits since 2019, his BP was 120-150/60-80's. He is currently asymptomatic. 2/2 to worsening anemia, although the patien t has no obvious source of blood loss and denies hematemesis, hemoptysis, hematochezia or me papito. Will continue to support BP with fluids and transfusion PRN. Will hold home diuretics. - Hold Lasix and Spirolactone. - Transfuse for H/H < 05/09 Macrocytic anemia with elevated iron Pt states he was receiving bi-weekly blood transfusions for 2-4 months. He stopped receivin g transfusions at the end of december. His Hgb has been trending down since that time however h is PCP was cautious to transfuse. Upon arrival his Hgb dropped from 8.9-->6.5. His MCV is el evated at 105.9, Iron - 204, TIBC 194, Ferritin 4,124, Aubrey negative. He has no signs of m ajor bleeding. Etiology unclear but most multifactorial by hemolysis 2/2 to cirrhosis with a component of alcoholic malnutrition such as B12/folate deficiency. His MRI is concerning fo r hemochromatosis. Will consult heme. His increase iron is most likely due to his liver dise ase and frequent blood transfusions. Pt's recent MRI showed signs of iron deposition in the liver which is concerning for hereditary hemachromatosis; however the pt's HFE genetic testi was negative. Will consult hematology today for further evaluation. - Transfuse with H/H 05/10 - Consult hematology CKD stage III Pt's CKD is thought to 2/2 to HRS in the setting of his liver disease. He has had significa nt hypotension which could also be contributing to a hypoperfusion insult. Creatinine has dr opped from 1.7 to 1.5 this morning and his UOP is roughly 600 mls. He does not meet the crit eria for HRS type 1. - CTM CODE:Full Dispo: Pending transplant evaluation. Pt staffed with Andriy Lewis PA-C. They agree with my documentation unless otherwise st ated. IRASEMA Valdovinos. Chente Chacon, Damir - 04/22/2019 3:[address] PDT[address] Sharon David at [facility] [place], [place] Received the following immunizations: PCV13 on 03/03/19 Hep B (Engerix) 03/03/19 Hep B (Engerix) 04/01/19 Per CDC Guidelines, the patient should receive PPSV23 on or after 04/28/19 and his next dose Engerix will be in August 2019. Charu Jha PA-C - 04/22/2019 7:56 AM PDT INPATIENT PROGRESS NOTE CLINICAL HOSPITALIST SERVICE Hospital Day:1 Author; ANDRIY LEWIS PA-C Attending Physician: Donell Corral MD Interval Hx: Admitted last night for concerns of SVT after dobutamine stress test, got ed osine overnight and carotid masage, converted out. Had rates up to 180's and SBP's in 80's, VSS overnight, got an additional dose of Mg. Subj: No complaints, wants to eat food. Feels otherwise ok. Family is here from [place] for abreu pport. Physical Exam: Last Vitals: BP 93/43 (BP Location: Left upper arm, Patient Position: Lying on back;Sitting ) | Pulse 65 | Temp 36.8 C (98.2 F) (Oral) | Resp 16 | Ht 1.803 m (5' 11") | Wt 84 kg (185 lb 3 oz) | SpO2 100% | BMI 25.83 kg/m | BSA 2.05 m O2 Delivery Device: None (room air) (04/22/19 0446) 24 Hour Vital Min/Max: Systolic (24hrs), Av , Min:89 , Max:118 Diastolic (24hrs), Av, Min:43, Max:65Pulse Min: 64 Max: 161 Temp Min: 36.6 C (97.8 F) Max: 36.8 C (98.2 F) Resp Min: 7 Max: 23 SpO2 Min: 99 % Max: 100 % Intake/Output Summary (Last 24 hours) at 04/22/2019 0757 Last data filed at 04/22/2019 0600 Gross per 24 hour Intake 560 ml Output 550 ml Net 10 ml General Appearance: Alert and interactive jaundiced adult man in NAD HEENT: NCAT, PERRL, sclerae icteric, mucosa mois Neck: Supple, no LAD , no JVD Respiratory: On RA Even and unlabored, CTAB Cardiovascular: RRR, no m/r/g Gastrointestinal: Soft, NT, ND, BS+ Musculoskeletal: WWP, no edema Skin: No rashes or lesions Neurologic: A&Ox4, Non-focal, +trace asterixis Psychiatric: Affect baseline Labs: Notable for Lab Results Component Value Date NA 132 04/22/2019 K 4.4 04/22/2019 CL 99 04/22/2019 BICARB 24 04/22/2019 BUN 56 04/22/2019 CR 1.52 04/22/2019 GLU 156 04/22/2019 CA 8.9 04/22/2019 AST 67 04/22/2019 ALT 43 04/22/2019 AP 139 04/22/2019 TBILI 11.0 04/22/2019 TP 6.3 04/22/2019 ALB 2.5 04/22/2019 DIRBILI 4.0 02/12/2019 ANIONGAP 9 04/22/2019 ANIONALBCOR 12 04/22/2019 CBC with diff last 72 hours (or 3 results) Recent Labs 04/21/19 0839 04/21/19 1509 04/22/19 0424 04/22/19 0926 WBC 11.08* 8.26 7.30 6.46 HB 8.9* 7.6* 6.5* 6.5* HCT 25.0* 20.7* 18.4* 18.0* PLT 77* 52* 51* 56* NEUTROPERC 82.0* 79.6* 70.0 -- LYMPHPERC 8.3* 9.4* 18.6 -- MONOPERC 7.5 9.0 9.3* -- BASOPERC 0.5 0.4 0.4 -- EOSPERC 1.1 0.6* 1.2 -- MELD-Na score: 34 at 04/22/2019 4:24 AM MELD score: 33 at 04/22/2019 4:24 AM Calculated from: Serum Creatinine: 1.52 mg/dL at 04/22/2019 4:24 AM Serum Sodium: 132 mmol/L at 04/22/2019 4:24 AM Total Bilirubin: 11.0 mg/dL at 04/22/2019 4:24 AM INR(ratio): 3.26 INR at 04/22/2019 4:24 AM Age: 54 years Imaging: Dobutamine stress Final Impressions: 1. At baseline left ventricular [...] > 85% age predicted maximal heart rate. MRI abd: 04/22/19 pending Assessment and Plan: Donell Duran is a 54 yo man with ESLD d/t ETOH c/b decompensated cirrhosis, CKD with recent HR S who presented with asymptomatic SVT in setting of dobutamine stress test. ESLD 2/2 to ETOH: MELD 36, undergoing OLT w/u. Appears overall compensated at this time, tolerating diuretics well and lactulose. Will continue transplant w/u here -CMP, INR daily -cont lactulose to 3-4 BMs/day -holding lasix/sree for now given hypotension, can potentially restart tomorrow -OLT w/u as follows: -MRI abd -F/U PETH -repeat urine micro -Hep B, outside PCV and Tdap requested by Rx -Cards consult for SVT -Dental consult SVT Hypotension Rates of 160-180s, resolved with carotid massage and subsequently adenosine x 1 in ED. No h istory of arrhythmias in past. Previous TTE with mild otherwise no valvular abnormalities . No symptoms to suggest ACS. Proarhythmic nature of dobutamine likely precipitated this. Fo r now, correcting electrolyte abnormalities. Will go ahead and stop metop for now, had start ed yesterday -DC metop -goal K>4, Mg>2 - telemetry for now -Cards to weigh in on further testing prior to OLT CKD stage III Cr baseline uptrending over past 2-3 months, stable at ~1.6-1.7. Hepatology felt most consi stent with T2HRS. Cr at baseline. At risk for further renal insult given his hypotension and SVT. - daily BMP - strict I/Os - holding diuretics as above, likely can restart tomorrow FEN: regular VTE: heparin CODE: FULL Family: mom and sister at bedside DISPO: May remain in-house until OLT, will d/w Liver team Andriy Lewis PA-C #[id number] Attending: Antwon Corral MD Clinical Hospitalist Service Associated attestation - Donell Corral MD - 04/23/2019 6:47 AM PDTI reviewed the primary data in the medical record and agree with the co-formulated assessment and plan as documente d by Andriy Lewis PA-C. Karlo Manley - 04/22/2019 7:10 AM PDT Internal Medicine Clinical Hospitalist Service Progress Note 24 Hour Events: - HR in NSR over night - No Events - started on LR 500cc and held diuretics due to hypotension. bp is 93/43 - h/h of 6.5/18.0 - Evaluated by hepatology who recommended expedited transplant work up Current Symptoms: Pt has no complaints. He denies any chest paint, palpitations, syncope or pre-syncope. He d enies any blood in stool or melena. He states his blood pressure "is always low" and that he used to receive up to four units of bi-weekly blood transfusions Sep-December. Current Medications: acetaminophen (TYLENOL) tablet 325-650 mg, 325-650 mg, oral, Q4H PRN bisacodyl (DULCOLAX) suppository 10 mg, 10 mg, rectal, DAILY PRN heparin injection 5,000 Units, 5,000 Units, subcutaneous, Q12H (Scheduled) lactulose (ENULAC) liquid 20 g, 30 mL, oral, TID metoprolol tartrate (LOPRESSOR) tablet 12.5 mg, 12.5 mg, oral, Q6H ondansetron ODT (ZOFRAN ODT) tablet 8 mg, 8 mg, oral, Q12H PRN polyethylene glycol (MIRALAX) packet 17 g, 17 g, oral, DAILY polyethylene glycol (MIRALAX) packet 34 g, 34 g, oral, TID PRN prochlorperazine (COMPAZINE) injection 5-10 mg, 5-10 mg, intravenous, Q6H PRN prochlorperazine (COMPAZINE) tablet 5-10 mg, 5-10 mg, oral, Q6H PRN senna-docusate (SENOKOT S) 8.6-50 mg 2 tablet, 2 tablet, oral, BID Physical Examination: Last 24 hour min/max Temp: 36.8 C (98.2 F) Temp Min: 36.6 C (97.8 F) Max: 36.8 C (98.2 F) Pulse: 65 Pulse Min: 64 Max: 161 Resp: 16 Resp Min: 7 Max: 23 BP: 93/43 BP Min: 89/45 Max: 118/59 SpO2: 100 % SpO2 Min: 99 % Max: 100 % Body mass index is 25.83 kg/m. Intake/Output Summary (Last 24 hours) at 04/22/19 0700 Last data filed at 04/22/19 0600 Gross per 24 hour Intake 560 ml Output 550 ml Net 10 ml General: Alert and oriented. Well nourished. Pleasant and cooperative Cardiovascular: RRR, no MGR, JVP estimated at 5-8cm at 45 degrees Respiratory: CTAB Abdomen: Distended, NTTP, No hepatomegaly appreciated. no guarding or rigidity Extremities: Warm, no peripheral edema. Chronic non-healing ulcer on LLE. Neuro: Following commands, moves all extremities spontaneously Laboratory Interpretation: CBC with diff last 72 hours (or 3 results) Recent Labs 04/21/19 0839 04/21/19 1509 04/22/19 0424 WBC 11.08* 8.26 7.30 HB 8.9* 7.6* 6.5* HCT 25.0* 20.7* 18.4* PLT 77* 52* 51* NEUTROPERC 82.0* 79.6* 70.0 LYMPHPERC 8.3* 9.4* 18.6 MONOPERC 7.5 9.0 9.3* BASOPERC 0.5 0.4 0.4 EOSPERC 1.1 0.6* 1.2 MELD-Na score: 34 at 04/22/2019 4:24 AM MELD score: 33 at 04/22/2019 4:24 AM Calculated from: Serum Creatinine: 1.52 mg/dL at 04/22/2019 4:24 AM Serum Sodium: 132 mmol/L at 04/22/2019 4:24 AM Total Bilirubin: 11.0 mg/dL at 04/22/2019 4:24 AM INR(ratio): 3.26 INR at 04/22/2019 4:24 AM Age: 54 years Imaging Interpretation: Chest x-ray 04/22 Clear lungs. Compression deformities in the lower thoracic spine, most likely chronic, alth ough age indeterminate. MRI cholangiograph WWO contrast 11/19/18 1. Cirrhosis with portal hypertension. No focal lesion. 2. Diffuse hepatic signal loss on in-phase imaging with more prominent focal signal loss ab out the hepatic veins, and similar signal loss involving the pancreatic body/tail. These fin dings reflect abnormal iron deposition, either due to underlying cirrhosis or primary hemach romatosis. 3. Cholelithiasis without associated inflammatory changes. No biliary ductal dilatation. Dobutamine stress echo 04/21/19 1. At baseline left ventricular systolic function is normal. 2. There were no ischemic ECG changes during stress. There were frequent PAC during stress and two sustained runs of SVT during recovery. 3. At peak stress the LV function augments normally (See comments below). 4. Echo negative for ischemia. 5. Low risk dobutamine stress echo with > 85% age predicted maximal heart rate. TTE 03/19/19 1. The left ventricular size is normal. 2. The LV function is normal. 3. Right ventricular size, thickness and function are normal. 4. The aortic valve is trileaflet and moderately calcified. 5. Mild aortic stenosis. 6. There are no prior exams available for comparison. Micro: RPR serum 04/21: unremarkable Assessment Doug Duran is a 54 y.o. male with ESLD, CKD III, HRS who was admitted for asympto matic SVT in the setting of dobutmaine stress test. Plan #ESLD with HRS Pt is currently being evaluated for transplant by [facility] liver transplant service. 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 Current MELD is 35. Manifestations of his liver disease include ascites/L E edema, and hepatorenal syndrome." With the severity of the patients disease, hepatology re commends expedited work up for transplant while in the hospital. Will appreciate there recs. He is currently clinically stable with no active sources of bleeding or signs of infection. - Sodium restricted diet. Encouraged adequate PO intake and activity level - Continue lactulose titrated to 3-5 BM daily - Transfuse PRN - Daily CBC, CMP, direct bilirubin, INR - Wound nurse consult to evaluate LLE wound - Please obtain the following pre-transplant work up Remaining evaluation orders - Repeat PETH - Repeat urine microscopy (21 red cells) DIAGNOSTIC STUDIES Abdominal Imaging, choose: - MRI Abdomen with and without contrast VACCINES ?? PCV13 or PPSV23 (PPSV23 1983) ?? Tdap injection (1983) ?? Hepatitis A vaccine (HAV IgG pos 04/21/2019) ?? Hepatitis B vaccination (HBsAb neg 04/21/2019) OTHER Consults ?? Cardiology Consult, NOTIFED ?? Transplant Social Work, NOTIFED ?? Transplant Nutrition, NOTIFIED ?? Transplant Pharmacy, DONE ?? Liver Transplant Surgeon, DONE ?? Transplant Psychology/Psychiatry Consult NEEDED ?? Oral & Maxillofacial Surgery , NOTIFIED #SVT Pt presented with rates in the 160s-180s. It was terminated by adenosine 6 mg in the ED. He has no history of arrhythmias or CAD. TTE on 03/19 showed mild with no other valvular dis ease. Continues to be asymptomatic and in NSR today. Will continue supportive therapy of rep lacing electrolytes and treating hypotension (below). Will consult cardiology today to evalu ate arrhythmia in the setting of transplant candidet and make recommendations on preoperati ve management. Dx - Tele - CMP - CBC Tx - Metoprolol 12.25 mg bid - appreciate cardiology recommendations #Hypotension BP has been 90's-100's/40's-50's. Upon review of BP at office visits since 2019, his BP was 120-150/60-80's. He is currently asymptomatic. 2/2 to worsening anemia, although the patien t has no obvious source of blood loss and denies hematemesis, hemoptysis, hematochezia or me papito. Will continue to support BP with fluids and transfusion PRN. Will hold home diuretics. - Hold Lasix and Spirolactone. - Transfuse for H/H < 7/20 Macrocytic anemia with elevated iron Pt states he was receiving bi-weekly blood transfusions for 2-4 months. He stopped receivin g transfusions at the end of december. His Hgb has been trending down since that time however h is PCP was cautious to transfuse. Upon arrival his Hgb dropped from 8.9-->6.5. His MCV is el evated at 105.9, Iron - 204, TIBC 194, Ferritin 4,124, Aubrey negative. He has no signs of m ajor bleeding. Most likely caused by hemolysis 2/2 to cirrhosis with a component of alcoholi c malnutrition such as B12/folate deficiency. His increase iron is most likely due to his li charlie disease and frequent blood transfusions. I considered hereditary hemachromatosis; mark yanes the pt's HFE genetic testing was negative. - Per Hepatology, will continue to monitor and transfuse PRN CKD stage III Pt's CKD is thought to 2/2 to HRS in the setting of his liver disease. He has had significa nt hypotension which could also be contributing to a hypoperfusion insult. Creatinine has dr opped from 1.7 to 1.5 this morning and his UOP is roughly 600 mls. He does not meet the crit eria for HRS type 1. - CTM CODE:Full Dispo: Pending transplant evaluation Pt staffed with Andriy Lewis PA-C . They agree with my documentation unless otherwise s tated. IRASEMA Valdovinos. documented in this encounter H&P Notes Jenifer Akins MD - 04/21/2019 4:49 PM PDTFormatting of this note might be different from t he original. INPATIENT ADMISSION HISTORY & PHYSICAL Clinical Hospitalist Service CHIEF COMPLAINT: SVT HISTORY OF PRESENT ILLNESS: 54 yo man with ESLD due to etoh cirrhosis (hx of decompensation with ascites, HRS), CKD who developed SVT today in setting of dobutamine stress test. Was in his usual state of health until he was given dobutamine for stress test and went int o SVT x 2 minutes with SBP in 80s. Patient denies feeling sensation of palpatations, dizzine ss or lightheadedness. Per Epic notes, received carotic massage by brick baker which termin ated the rhythm. Also received 250cc x1 of IVFs. Sent to ED for evaluation and en route had additional short-lived runs of SVT. Per ED attending has also has a fib with RVR captured on telemetry. Otherwise, AF, 100% on RA, BP 90-110s/50s in ED. Rates to 180s in SVT, otherwise NSR in 80s . Prior to my evaluation, went back into SVT that was terminated with adenosine 6 mg IV x1 a nd was subsequently started on metoprolol PO. Mg 1.8, given Mg 2 gm x1, K4.6. Denies previous history of a fib or other arrhythmias. No chest pain with activity. Has bee n increasing his physical activity in setting of abstaining from alcohol and potential liver transplant. Can walk around [employer] without having to stop. Able to walk up 5-6 steps of hi s home now when a few months ago he couldn't do that due to SOB and fatigue. Abstinent from etoh since 2017. Accompanied by his sister and mother today who state he actually is doin g much better recently that a few months ago. No confusion, he is at his baseline mentation. Diuretic doses changed 1-2 months ago. Doesn't always take his lactulose if he is going to be traveling. No BM today; had 3 yesterday. Denies ever having to need a paracentesis. REVIEW OF SYSTEMS As documented in HPI, otherwise >10 of the following systems were reviewed and were negativ e: Constitutional Eyes Ears, nose mouth, throat Cardiovascular Respiratory Gastrointestinal Genitourinary Musculoskeletal Skin Neurologic General Health Hematologic or Lymphatic Allergic or immunologic PAST MEDICAL HISTORY Past Medical History: Diagnosis Date Cirrhosis (HCC) CKD (chronic kidney disease) PAST SURGICAL HISTORY Past Surgical History Procedure Laterality Date Leg surgery OUTPATIENT MEDICATIONS (Not in a hospital admission) ALLERGIES Allergies Allergen Reactions Doxycycline Hives and Rash SOCIAL HISTORY Reviewed with patient and updated in chart as needed. Social History Socioeconomic History Marital status: Single [...] file Gets together: Not on file Attends alevism service: Not on file Active member of club or organization: Not on file Attends meetings of clubs or organizations: Not on file Relationship status: Not on file Other Topics Concern Not on file Social History Narrative Not on file FAMILY HISTORY Family History Problem Relation Liver cancer Neg Hx PHYSICAL EXAM Last Vitals: BP (!) 97/58 | Pulse 66 | Temp 36.6 C (97.8 F) (Oral) | Resp 14 | Wt 84.4 kg (186 l b) | SpO2 100% | BMI 25.94 kg/m | BSA 2.06 m Gen Fatigued man lying in bed, NAD HEENT perrl, eomi, sclearal icterus, op clear Pulm cbta, no w/c/r CV rrr, 2/6 systolic murmur heard at RUSB Abd soft, nt/nd, no hsm, no r/g Ext wwp, pulses 2+, 1+ edema Neuro alert, oriented fully x4, +STEPHON backwards, moving all exte spont; negative asterixix Psych affect congruent/appropriate, TPo linear, TCo appropriately focused Skin Diffuse jaundice; spider angiomas on chest; healing lesion on dorsum of left ankle Lines/Tubes PIV LABORATORY Chemistries: Last 72 Hours (or 3 results) - Refreshable Recent Labs 04/21/19 0839 04/21/19 1509 NA 128* 131* K 4.6 4.8 CL 96* 96* BICARB 26 26 BUN 51* 56* EGFRAFRICAN 50* 51* CR 1.72* 1.70* GLU 133* 141* CA 9.7 9.3 MG -- 1.8 CBC with diff last 72 hours (or 3 results) - Refreshable Recent Labs 04/21/19 0839 04/21/19 1509 WBC 11.08* 8.26 HB 8.9* 7.6* HCT 25.0* 20.7* PLT 77* 52* NEUTROPERC 82.0* 79.6* LYMPHPERC 8.3* 9.4* MONOPERC 7.5 9.0 BASOPERC 0.5 0.4 EOSPERC 1.1 0.6* Lab Results Component Value Date INRPT 2.94 04/21/2019 MELD-Na score: 35 at 04/21/2019 3:09 PM MELD score: 34 at 04/21/2019 3:09 PM Calculated from: Serum Creatinine: 1.70 mg/dL at 04/21/2019 3:09 PM Serum Sodium: 131 mmol/L at 04/21/2019 3:09 PM Total Bilirubin: 15.2 mg/dL at 04/21/2019 3:09 PM INR(ratio): 2.94 INR at 04/21/2019 3:09 PM Age: 54 years IMAGING Imaging independently reviewed. EKG - sinus tachy HR 160s; no delta wave; Tele - in room: PACs Dobutamine stress Final Impressions: 1. At baseline left ventricular [...] > 85% age predicted maximal heart rate. ASSESSMENT AND PLAN 54 yo man with ESLD c/b decompensated cirrhosis, CKD with recent HRS who presented with asy mptomatic SVT in setting of dobutamine stress test. # SVT # A fib with RVR? # Hypotension Rates of 160-180s, resolved with carotid massage and subsequently adenosine x 1 in ED. No h istory of arrhythmias in past. Previous TTE with mild otherwise no valvular abnormalities . No symptoms to suggest ACS. Proarhythmic nature of dobutamine likely precipitated this. Fo r now, correcting electrolyte abnormalities. Currently on low dose metoprolol, if stable govind sonable to discontinue tomorrow. For now, defer EP consult but if he has continued episodes of SVT or becomes unstable would call CVICU/EP team for further management. Holding lasix an d spironolactone given his hypotension. - LR 250cc/hr x2 hr - guard K>4, Mg>2 - metop tartrate 12.5 mg PO q 6 hr - telemetry # ESLD Currently in pre-transplant stage. Appears overall compensated at this time. Hepatology req uesting admission for possible expedited transplant workup. Discussed with fellow, formal re cs to come. Given hypotension (usually runs SBP 110-140s) will hold diuretics for now. - holding spironolactone and furosemide - continue home lactulose, goal BM3-4/day - appreciate hepatology (defer further transplant workup until insurance coverage approved) - daily MELD labs # CKD stage III Cr baseline uptrending over past 2-3 months, stable at ~1.6-1.7. Hepatology felt most consi stent with T2HRS. Cr at baseline. At risk for further renal insult given his hypotension and SVT. - daily BMP - strict I/Os - holding diuretics as above DVT Prophylaxis: SQH Diet - low Na, high protein Code status: FULL Surrogate Decision Maker: updated in ACP navigator: Surrogate Decision Maker Primary Surrogate Decision Maker Doreen norwood [phone] Secondary Surrogate Decision Maker Priyanka Rivera mother Karen Akins MD Division of Hospital Medicine [facility] Pager [phone] [facility] DEPARTMENT: Hosp ([facility]) - [phone] Place of Service: - [id number] Date of Service: 04/21/2019 [facility] [phone] Modifiers:GC Resident Involved: No Service: PRIMARY HOSPITALIST Suggested CPT: 56958 Initial Visit Comp/High Complexity 70 min I spent more than 83minutes of floor/unit time in care of this patient of which greater merlyn n 50% was spent counseling and coordinating care for the patient regarding the above problem s (includes time spent discussing the case with other medical providers, nurses, writing ord ers, documenting, reviewing telemetry, ekg, records and time spent counseling the patient). documented in this encoun ter Consult Notes Tyson Bellamy MD - 04/23/2019 12:44 PM PDT Hematology Attending Attestation. 54 y/o male with ESLD who has been transfusion dependent for several months. 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 This is compounded by significant transfusion associated iron overload as evidenced by his persistent ferritin of 3-4 thousand, saturation of 105% and evidence of organ iron de position on MRI abdomen. Recent ECHO is unremarkable, but would recommend considering cardi ac T2 MRI as he is at risk for cardiac dysfunction at these iron levels. Traditionally we w ould consider initiation of chelation therapy, however if he is going to undergo transplanta tion in the short term we may be able to defer this as post transplant his CBC should improv e and he could potentially undergo phlebotomy as the preferred treatment. If transplant is n ot anticipated in the short term, and particularly if there is evidence of iron deposition o n cardiac MR we would consider initiation of chelation, likely with parenteral Deferoxamine as the oral Deferasirox is contraindicated with his current level of liver disease. Would re commend limiting transfusions going forward as much as possible. We will continue to follow . Please call us with any questions. I evaluated the patient in conjunction with Dr. Riley and agree with her documentation. Tyson Bellamy MD [facility] [place] [address] Jamila Cuadra MD - 10:26 AM PDT INPATIENT HEMATOLOGY INITIAL CONSULT NOTE Consultation Date: 04/23/2019 Author: Jamila Riley MD Consulting Attending: Tyson Bellamy MD Reason for Consult: Persistent macrocytic anemia, iron overload Requesting Provider: [facility] Outpatient Insurance Administrator/Oncologist: David Quevedo MD HPI: Mr. Doug Duran is a 54 y.o. M with a history of EtOH cirrhosis c/b ascites and HR S type 2, admitted for SVT in the setting of dobutamine stress test done as part of liver tr ansplant work-up, remaining admitted for expedited work-up of liver transplant evaluation. H ematology consulted for transfusion-dependent macrocytic anemia and concerns for iron overlo ad. Mr. Duran reports a several-month long history of requiring blood transfusions as frequentl y as every week. He has been followed by Dr. Quevedo, a journalism professor at [employer] , following an admission for pneumonia at which point he was noted to have a severe macrocyt ic anemia. During this hospitalization alone, he receive 7u PRBCs as well as IV iron treatme nts. Prior to this, his iron studies in January 2018 showed a ferritin of 1635 and an iron sat uration of 92. He underwent a bone marrow biopsy 07/2018 which showed a normocellular marrow with trilinea ge hematopoiesis and erythroid hyperplasia and increased storage iron. FAISAL 2 V617F with refl ex to MPN testing also previously preformed, negative. Since being admitted, Mr. Duran underwent an MRI abdomen w/ w/out contrast which showed sig nal loss on T1 and T2-weight images of liver, pancreas, and renal cortices, suggestive of ir on deposition. He did undergo genetic testing for hemachromatosis (HFE C282Y and H63D) which were negative. So far this admission, he has received 3u PRBCs for a Hgb of 6.5. Past Medical History: Diagnosis Date Cirrhosis (HCC) CKD (chronic kidney disease) Review of Systems: As per HPI Current Inpatient Medications acetaminophen (TYLENOL) tablet 325-650 mg, 325-650 mg, oral, Q4H PRN bisacodyl (DULCOLAX) suppository 10 mg, 10 mg, rectal, DAILY PRN diphtheria-acellular pertussis-tetanus (ADACEL (booster), Tdap) injection 0.5 mL, 0.5 mL, i ntramuscular, ONE TIME DURING VISIT heparin injection 5,000 Units, 5,000 Units, subcutaneous, Q12H (Scheduled) lactulose (ENULAC) liquid 20 g, 30 mL, oral, TID ondansetron ODT (ZOFRAN ODT) tablet 8 mg, 8 mg, oral, Q12H PRN [START ON 04/28/2019] pneumococcal (23-valent) polysaccharide vaccine (PNEUMOVAX) injection 0 .5 mL, 0.5 mL, intramuscular, ONCE polyethylene glycol (MIRALAX) packet 17 g, 17 g, oral, DAILY polyethylene glycol (MIRALAX) packet 34 g, 34 g, oral, TID PRN prochlorperazine (COMPAZINE) injection 5-10 mg, 5-10 mg, intravenous, Q6H PRN prochlorperazine (COMPAZINE) tablet 5-10 mg, 5-10 mg, oral, Q6H PRN senna-docusate (SENOKOT S) 8.6-50 mg 2 tablet, 2 tablet, oral, BID Allergies Allergen Reactions Doxycycline Hives and Rash Social History Socioeconomic History Marital status: Single [...] file Gets together: Not on file Attends alevism service: Not on file Active member of club or organization: Not on file Attends meetings of clubs or organizations: Not on file Relationship status: Not on file Other Topics Concern Not on file Social History Narrative Not on file Family History Problem Relation Liver cancer Neg Hx Physical Exam: Last Vitals: BP 96/50 (BP Location: Left upper arm, Patient Position: Lying on back) | Pul se 59 | Temp 36.4 C (97.5 F) (Oral) | Resp 16 | Ht 1.803 m (5' 11") | Wt 84 kg (185 lb 3 oz) | SpO2 100% | BMI 25.83 kg/m | BSA 2.05 m 24 hour Vitals min/max : Systolic (24hrs), Av , Min:90 , Max:98 Diastolic (24hrs), Av, Min:44, Max:55 Pulse Min: 59 Max: 64 Temp Min: 36.3 C (97.3 F) Max: 36.9 C (98.4 F) Resp Min: 16 Max: 16 SpO2 Min: 97 % Max: 100 % General: Alert, oriented, and does not appear to be in any acute distress. Ambulating aroun d room HEENT: EOMI, +scleral icterus Pulm: Breathing comfortably on room air Neuro: Cranial nerves grossly intact bilaterally. Psych: Pleasant and appropriate affect Data: CBC with diff last 72 hours (or 3 results) Recent Labs 04/21/19 0839 04/21/19 1509 04/22/19 0424 04/22/19 0926 04/22/19 1828 04/23/19 0638 WBC 11.08* 8.26 7.30 6.46 7.57 6.99 HB 8.9* 7.6* 6.5* 6.5* 9.7* 8.4* HCT 25.0* 20.7* 18.4* 18.0* 27.4* 23.0* PLT 77* 52* 51* 56* 62* 50* NEUTROPERC 82.0* 79.6* 70.0 -- -- -- LYMPHPERC 8.3* 9.4* 18.6 -- -- -- MONOPERC 7.5 9.0 9.3* -- -- -- BASOPERC 0.5 0.4 0.4 -- -- -- EOSPERC 1.1 0.6* 1.2 -- -- -- Chemistries: Last 72 Hours (or 3 results): Recent Labs 04/21/19 1509 04/22/19 0424 04/23/19 0638 NA 131* 132* 131* K 4.8 4.4 4.4 CL 96* 99 99 BICARB 26 24 24 BUN 56* 56* 48* CR 1.70* 1.52* 1.29 GLU 141* 156* 140* CA 9.3 8.9 8.7 MG 1.8 2.4 -- Recent Labs 04/21/19 1509 04/22/19 0424 04/23/19 0638 AST 82* 67* 68* ALT 52 43 41 TBILI 15.2* 11.0* 10.8* AP 171* 139* 147* ALB 3.0* 2.5* 2.6* TP 7.5 6.3* 6.5 Lab Results Component Value Date FERRITIN 4,124 (H) 04/21/2019 Lab Results Component Value Date APTT 69.8 (H) 04/23/2019 FIBRINOGEN 191 04/23/2019 Imaging: MRI 04/22/19: EXAM: Abdomen MRI without and with intravenous contrast. HISTORY: Liver transplant candidate, eval for HCC, eval size & patency of PV & SMV. COMPARISON: MRI 11/19/2018. TECHNIQUE: Multiplanar MRI of the abdomen was performed without and with gadolinium based intravenous contrast. FINDINGS: Motion artifact on the majority of sequences limits evaluation. LIVER: Cirrhotic morphology. Diffuse signal loss is seen on T1 and T2-weighted images, most prominent along the hepatic veins. No definite focal liver lesion identified. BILIARY: Multiple small stones layer dependently within the gallbladder. No evidence of acu te cholecystitis. PANCREAS: Atrophic pancreas with diffuse signal loss on T1 and T2-weighted images. SPLEEN: Stable splenomegaly measuring up to 19.6 cm in craniocaudal dimension. ADRENALS: Unremarkable. KIDNEYS: Reversed cortical medullary differentiation bilaterally due to cortical hypointens ity on T1 and T2-weighted images. GI TRACT: Visualized portions are unremarkable. PERITONEUM: No free air or fluid. LYMPH NODES: No lymphadenopathy. VESSELS: The main portal vein is patent and measures up to 15 mm at the jb hepatis. The SMV is patent and measures approximately 13 mm near the splenic confluence. Recanalized umbi lical vein with omental and gastric varices, similar to prior study. BONES AND SOFT TISSUES: Bilateral gynecomastia. IMPRESSION: 1. Cirrhosis with portal hypertension. No definite focal liver lesion. 2. Extensive signal loss on both T1 and T2-weighted images in the liver, pancreas, and willie l cortices suggestive of iron deposition as can be seen with primary hemochromatosis. Peripheral Smear: My interpretation: many spur cells Assessment and Recommendations: Mr. Doug Duran is a 54 y.o. M with a history of EtOH cirrhosis, admitted for expe dited transplant work-up. Hematology consulted for transfusion-dependent macrocytic anemia a nd concern for iron overload. #Macrocytic anemia: Causes of macrocytic anemia include nutritional deficiencies, EtOH/live r disease, hypothyroidism, MDS, Peripheral smear with innumerable spur cells with a backgro und of normal RBCs, likely transfused cells. With his elevated indirect bilirubin and slight ly elevated LDH, as well as low haptoglobin (although expect this would be low in setting of end-stage cirrhosis), he does have some evidence of hemolysis. Most likely his transfusion- dependent anemia is all secondary to spur cell anemia, which is an end-stage complication of liver disease, causing excess accumulation of cholesterol on the red cell membrane and resu lting in decreased red cell survival and hemolysis. The only treatment for spur cell anemia is liver transplant, and Mr. Duran will continue to be transfusion-dependent unless he is ab le to receive a transplant. To ensure there are no other contributing factors would rule out nutritional causes includi ng B12, folate, copper, zinc (which can induce copper deficiency). TSH/free T4 previously ch ecked, not hyperthyroid. His other cell lines don't fit the picture for MDS and he previousl y had a normal bone marrow biopsy. Would check HIV as it looks like this has not previously been checked. -serum B12 -methylmalonic acid -serum copper -zinc -HIV #Iron overload: Does meet criteria for iron overload with ferritin >1000 and iron saturatio n >45. He has received multiple PRBC transfusions over the last year, as well as IV iron, th at resulted in this. Labwork negative for HFE. Because he has Leanne Blount Class C cirrhosis, he cannot safely receive deferasirox (Jadenu), which is what we generally use for iron-adry ation. We would generally avoid chelation at this stage; if he is able to get a liver transplant, we can phlebotomize him after recovery to avoid the toxicities of chelation. However, if he has cardiac evidence of iron overload, he may require chelation more urgently- would check a T2-weighted cardiac MRI for further evaluation. If this does show evidence of iron overload , we can consider giving deferoxamine, an IM alternative to deferasirox, which is not contra indicated in Leanne Blount Class C cirrhosis (although on package insert, does note risk of wo rsening transaminitis/hepatic dysfunction). We would recommend limiting further blood transf usions as much as possible to minimize further iron overload. -check T2-weighted cardiac MRI -transfuse only if symptomatic SUMMARY OF RECOMMENDATIONS: -B12 -methylmalonic acid -copper -zinc -HIV -T2-weighted cardiac MRI -would LIMIT pRBC transfusions as much as possible; would aim to only transfuse if symptoma tic Thank you for this consult. Please do not hesitate to contact us with further questions reg arding this patient's care. We will continue to follow. The patient's case has been staffed with my attending physician, Dr. Bellamy, who agrees wi th my assessment and recommendations or otherwise as noted in their addendum. Jamila Riley MD Hematology/Oncology Fellow PGY4 Pager [phone] Amaris Culver, JACOBY - 04/22/2019 1:26 PM PDTLiver Transplant Psychosocial Evaluation 04/22/2019 Completed by: Amaris Medina LCSW Purpose of the Interview: Donell Duran is a 54 yr old male with liver failure due to alcoholic cirrhosis. Nannette vargas has been referred for liver transplant. Evaluation was completed at bedside. His mother Elizabeth mandel and sister Doreen were present for part of this evaluation. Language/Cultural Considerations: None identified. Family Background: Pt was born in [place], [place]. He was raised by parents Priyanka and Ephraim. His parents once he was out of high school. Priyanka is 76 yrs old and lives in [place] and is remarried. Pt r eports her health to be good. His father Ephraim 30 yrs ago. Pt has one sister, July Peoples is 48 yrs old and lives in [place], two miles from their mother. He states he had a gr eat childhood growing up. Relationship Status/Children & Current Living Situation: Pt is currently living in [place] in a single wide trailer he is renting from a friend. He pays $700 a month in rent. He has been in his current living situation for a year. Pt still has a home in [place] that he would like to eventually return to or is considering movin g to [place]. He moved to be closer to medical care. Pt has 2 dogs and is working out a inTarvo an for them. Pt has a history of two marriages. He last about 10 yrs ago and is currently singl e. He has four adult children. Evaristo is 30 yrs old and lives in [place]. Pt does not have c ontact with Evaristo. Rikki is 28 yrs old and lives in [place]. Alfreda is 25 yrs old and lives in [place] and Adonis is 24 yrs old and lives in [place]. Education/Employment: Education: Pt's highest level of education is some college. Employment: Pt is not working. He last worked in the fall of 2017. He stopped working due t o his health. 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 He o ften worked long day, 16 hrs. Spouse/Significant other employment: NA History: Pt denies any history of service. Activities Information: Leisure Activities: Pt enjoys gardening, hunting, fishing and other outdoor activities. Patient aware there will be some limitations on her physical activities until fully recover ed from transplant surgery. Spiritual Community: None Social Support Score: 1- Low Risk Social Support Strengths/Risks: Pt presents as low risk from a social support perspective. Pt appears to have great support from his mother Priyanka and sister Doreen. They will alternate staying with pt at his aunts house in [place]. His aunt and uncle will be available for a dditional back up support. His supports returned to [place], however plan to return pending pt' s clinical course. His sister is not working. She has a 15 yr old and 28 yr old. Pt's mother is retired. Advance Directive: Pt reports he has a completed health care directive and will provide [facility] a copy. Financial/Insurance Score: 1.5- Mild Risk Financial/Insurance Strengths/Risks: Pt presents as mild risk from a financial/insurance pe rspective. Financial: Pt has a fixed income from [employer]. He states he has been receiving back pay and [employer] received his first check this week. He is unsure of the amount he will be getting monthly . Pt does not have any other sources of income. He states he has some money in savings from his back pay. Pt is able to meet his monthly living expenses at this time and has been able to pay back those he borrowed money from waiting for his SSDI. Insurance: Pt has [facility] JOSE. SOFTWARE INTEGRATION DEVELOPER reviewed the potential financial implications regarding maintaining organ transplant i ncluding expenses which insurance does not fully cover. These expenses can include OTC meds, supplies, co-pays for medications and full costs of travel and extended stay for medical ca re away from home. We discussed the high costs of immunosuppressive medications, anti-virals and the importance of maintaining ongoing, comprehensive medical coverage for the rest of p atient s life. Patient stated their understanding regarding this information. Compliance Score: 2- Moderate Risk Compliance/Treatment Adherence Strengths/Risks: Pt presents as moderate risk from a complia nce perspective. Pt reports compliance with medications and appointments. He states that he has a routine in place to help him manage his medications. Of concern, pt was told to quit drinking in December-January 2018 when he was hospitalized for a pneumonia and told his liver enzymes were high. He reduce his drinking but continued to dri nk until June 2018. Functional Status Score: 1- Low Risk Functional Status Strengths/Risks: Pt presents as low risk from a functional status perspec tive. Pt denies needing assistance to complete ADLs. Pt was living independently and managin g on his own prior to this hospitalization. He states he is able to get up and walk around. Cognitive Functioning Score: 1- Low Risk Cognitive Functioning Strengths/Risks: Pt presents as low risk from a cognitive functioning standpoint. Pt appeared to have good understanding of his medical condition, rational for transplant and the rigors required after transplant to maintain a new graft. Pt appeared to be able to read with normal comprehension, intact memory and was without obvious cognitive d eficit. Mental Health Score: 1- Low Risk Mental Health Strengths/Risks and History: Pt presents as low risk from a mental health pe rspective. Patient has never been given a mental health diagnosis, such as depression or anx iety, has never been prescribed any type of medication for mental health reasons, has never been hospitalized for mental health issues and has not felt the reason to see a counselor/ erapist. Pt denies any hx of SI/SA. Pt reports that there are guns in the home. SOFTWARE INTEGRATION DEVELOPER and pt discussed the use of high dose prednisone after transplant and the possible aprris e effects he could experience including mood swings, depression, anxiety, poor sleep and irr itability. SOFTWARE INTEGRATION DEVELOPER encouraged pt to keep the team informed of any symptoms that are concerning in the post-transplant phase. Coping Skills Score: 1.5- Mild Risk Coping Skills Strengths/Risks: Pt presents as mild risk from a coping skills perspective. Pt was able to identify a few healthly coping skills after further prompting. To cope with s tress pt reports calling friends or his mother or sister. Overall, pt states he lives a stre ss free life and feels he is even keeled and does not get "rattled" easily. Substance Use Score: 3- High Risk Substance Use Strengths/Risks: Pt presents as high risk from a substance use perspective. Patient s Substance Use Tobacco Use: Pt has a long history of using chewing tobacco. He states he has chewed off an d on for 30 yrs. When he was working he averaged chewing 10-15 cans per month. Since he stop ped working he has been chewing 2 cans per month. Pt states he last used chew on Saturday () and gave his last can to his sister prior to evalaution. His sister and mother have b rought in gum for him to chew to help with tobacco cessation. Patient verbalizes commitment to remaining abstinent from tobacco for lifetime. Last Use of Tobacco: 04/19/2019 Alcohol Use: Pt has a long history of heavy alcohol use. He reports he started drinking bee r in high school and has drank off and on throughout his adult life. Pt states his drinking has varied and he had periods of sobriety as long as a year. Pt states between [id number] he drank on average 12 beers most days. 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 Prior to getting sick he states he would drink 8-12 beers on weekends/holidays. Between January-June he states he was drinking 2 beers per day. He s tates he was a functioning alcoholic and denied negative consequences from his drinking besi pablo a DUI. Pt received a DUI in in 1992 and completed a diversion program at that time. Zahra pardo verbalizes commitment to remaining abstinent from alcohol for lifetime. Last Use of Alcohol: 06/2018. Drug Use: Pt denies any regular marijuana use. He states he has tried marijuana in the past . Pt endorses trying illicit drugs in the 's. Prescription Drug Abuse: None Drug and Alcohol Treatment: Pt states he completed a diversion program after receiving a DU I in 1992. He reports he completed a substance use evaluation [facility] and treatment was not recommended. He is participating in once a month cou nseling for relapse prevention with Meera Vergara. Pt signed GRIFFIN for typewriter operator automatic to contact Meera amezquita pt's progress in relapse prevention and discuss any concerns. GRIFFIN was faxed on 04/22/2019 . Family History of Substance Abuse: Father Legal Issues Score: 1.5- Mild Risk Legal Issues/History Strengths/Risks: Pt presents as mild risk from a legal issues perspect prudence. Pt received a DUI in 1992 in [facility]. He completed a diversion program. Understanding of Transplant Process Score: 1- Low Risk Understanding of Transplant Strengths/Risks: Pt presents as low risk from an understanding of transplant perspective. Patient attended the Transplant Education class with his sister a nd mother. Both expressed adequate understanding of the material presented in class. We revi ewed the importance of compliance with medication and follow-up. We reviewed risk and benefi ts of transplant including the lifelong use of complicated medication. Patient asked appropr iate questions regarding the transplant process. Patient expressed understanding that transp lantation is a treatment option and not a cure. We reviewed the driving and lifting restrict ions following transplant surgery and patient expressed the ability to comply for as long as necessary. Pt and his supports seem open to ongoing support and education. Patient s Understanding of Illness: Patient understands the severity of condition, need for liver transplant in order to surviv e. Patient has no difficulty getting labs drawn, taking medications as prescribed and knows th e importance of adhering closely to medical care team s instructions. Motivation for Transplant Score: 1- Low Risk Motivation for Transplant Strengths/Risks: Pt presents as low risk from a motivation for tr ansplant perspective. Patient believes that transplant would allow him to live a longer life and return to work. Patient and support understand there will be a significant period of time needed to heal an d then get more stable post-tx. Patient understands liver transplant is a life-long journey and not a cure. Patient grasps the severity of liver transplant surgery, the expected kerry th of stay, ICU period and potential complications and is willing to proceed to extend and i mprove quality of life. TX ROYER stressed living post-liver transplant means a lifetime of adherence to immunosuppress ion, and the need to be consistent, reliable and timely with pills. Pt knows about the impa ct of life post-tx including: higher risk of infection, importance of excellent hand hygien e, importance on frequent labs and clinic appts plus biopsies possible to monitor status and watch for early signs of rejection. Post Hospital Care Plan/Support Person Agreement: After being discharged from the hospital, patient plans to recover at his aunt and uncles h ouse in [place], [place]. Primary support will be his sister Doreen Manley; Secondary suppor t will be his mother Priyanka Rivera. They drive, are available, have working vehicles. TX ROYER r eviewed the expectations of the caregiver on the SPA forms. Pt/family aware of the demandin g schedule of frequent labs and clinic appts in the post-tx period. Pt/Family appears capab le of completing an adequate post-hospital recovery support plan. Support Person Agreement was reviewed by ERASMO LINTON, is complete and sent for scanning. Observations/Recommendations: From a psychosocial perspective, contraindications noted include tobacco use. Pt last used chewing tobacco on Saturday, therefore from a substance use perspective pt is high risk. He st ates he is committed to remaining tobacco free. Pt presents as an overall moderate risk cand idate for liver transplant. He appears to have great support from his mother and sister, mikki quate insurance, solid relocation plan and has appropriate motivation for transplant. Plan: The following interventions, follow up or consults are needed: 1. Pt to continue to engage in relapse prevention. 2. Pt to complete tobacco cessation. This case will be presented and discussed at the Transplant Committee Review. WINIFRED Mckenzie, JACOBY Clinical Transplant Float Janitor Phone: [phone] Pager: [phone] Jolie Irwin PharmD - 04/22/2019 1:01 PM PDTFormatting of this note might be different from the origin al. Pharmacy Services: Admission Medication Reconciliation Prior to Admission Medications: Prior to Admission Medications Prescriptions furosemide 20 mg oral tablet Sig: Take 40 mg by mouth two times daily. lactulose 10 gram/15 mL oral solution Sig: Take 15 mL by mouth two times daily. spironolactone 100 mg oral tablet Sig: Take 100 mg by mouth once daily. Facility-Administered Medications: None The above list reflects the patient's prior to admission medication use and is complete and accurate to the best of my knowledge Home medication assessment: -added: none -changed: none -removed: none These variations will be discussed with the primary care team to determine clinical appropr iateness Additional Information: none Insurance Status: Payor/Plan Subscr Sex Relation Sub. Ins. ID Effective Group Num 1. CONTRACTS - T* DOUG DURAN* 1965 Male Self [id number] 03/26/19 [id number] ATT: [facility]PL[facility], [address] [place] [address] 2. [place] [employer] * DOUG DURAN* 1965 Male [id number] 05/05/18 [address] [address] Adherence: Good Anticipated Discharge Needs: Will follow up with patient on day of discharge. Source of Medication Information: Pharmacy Reliability: Reliable Updated Allergies: Allergies Allergen Reactions Doxycycline Hives and Rash All questions concerning medications, including OTC and herbal products, were addressed. For questions regarding this information please contact pharmacy, pager [phone] Thank you, Jolie Mathis PharmD Carol Diaz D DS - 04/22/2019 11:48 AM PDTAssociated Order(s): IP CONSULT TO HDS ([facility] ) [facility] Consult Author: Carol Vargas DDS Attending: Scot Smith DDS Date: 04/22/2019 CC/ Goals: Evaluation of dental needs and establish appropriate treatment plan that safely meets the patients needs. Patient stated, "I have some broken teeth that they think I need t o get out before I get my transplant." Pain: 0/10 Pt denied dental pain HPI: Doug Duran is a 54 year old male who is referred to the [facility] ice for evaluation of dental needs. Pt was lying in bed, alert, responsive but displayed gen eralized facial jaundice. Treatment completed today: - Consult - Intraoral/Extraoral Exam PMH: Past Medical History: Diagnosis Date Cirrhosis (HCC) CKD (chronic kidney disease) Patient Active Problem List Diagnosis Alcoholic cirrhosis of liver with ascites (HCC) Chronic kidney disease Hepatorenal syndrome (HCC) Abnormal echocardiogram Cirrhosis (HCC) CKD (chronic kidney disease) SVT (supraventricular tachycardia) (HCC) Paroxysmal A-fib (HCC) Chronic kidney disease, unspecified CKD stage PSH: Past Surgical History Procedure Laterality Date Leg surgery MEDS: acetaminophen (TYLENOL) tablet 325-650 mg, 325-650 mg, oral, Q4H PRN bisacodyl (DULCOLAX) suppository 10 mg, 10 mg, rectal, DAILY PRN diphtheria-acellular pertussis-tetanus (ADACEL (booster), Tdap) injection 0.5 mL, 0.5 mL, i ntramuscular, ONE TIME DURING VISIT heparin injection 5,000 Units, 5,000 Units, subcutaneous, Q12H (Scheduled) lactulose (ENULAC) liquid 20 g, 30 mL, oral, TID metoprolol tartrate (LOPRESSOR) tablet 12.5 mg, 12.5 mg, oral, Q6H ondansetron ODT (ZOFRAN ODT) tablet 8 mg, 8 mg, oral, Q12H PRN pneumococcal (23-valent) polysaccharide vaccine (PNEUMOVAX) injection 0.5 mL, 0.5 mL, intra muscular, ONE TIME IN THE MORNING polyethylene glycol (MIRALAX) packet 17 g, 17 g, oral, DAILY polyethylene glycol (MIRALAX) packet 34 g, 34 g, oral, TID PRN prochlorperazine (COMPAZINE) injection 5-10 mg, 5-10 mg, intravenous, Q6H PRN prochlorperazine (COMPAZINE) tablet 5-10 mg, 5-10 mg, oral, Q6H PRN senna-docusate (SENOKOT S) 8.6-50 mg 2 tablet, 2 tablet, oral, BID ALL: Allergies Allergen Reactions Doxycycline Hives and Rash Social Habits: Social History Socioeconomic History Marital status: Single [...] file Gets together: Not on file Attends alevism service: Not on file Active member of club or organization: Not on file Attends meetings of clubs or organizations: Not on file Relationship status: Not on file Other Topics Concern Not on file Social History Narrative Not on file ROS: Constitutional: positive for migraines, negative for weight loss, fevers or chills. Allergic/Immunologic: positive for runny nose around cats, negative for difficulty breathin g, swelling in neck/glands. HEENT: positive for limited range of motion in cervical neck, negative for double vision, v isions changes, eye pain, epistaxis, or odynophagia. Cardiovascular: positive for HTN, negative for chest pain, shortness of breath, or exercise intolerance. Respiratory: positive for asthma, negative for cough, sputum, wheeze. Gastrointestinal: negative for abdominal pain, hematemesis, nausea/vomiting, or diarrhea/co nstipation. Genitourinary: negative for , incontinence, or urinary symptoms. Musculoskeletal: positive for limited range of motion in cervical spine, negative for pain or edema in extremities. Skin: negative for rashes, lesions, or changes in lumps/bumps/masses. Neurological: negative, normal speech and function. Endo/Heme: positive for hypothyroid, hyperlipidemia, negative for anemia, bleeding disorder s, or anticoagulant/antiplatelet drugs. Psychiatric/Behavioral: positive for headaches, anxiety, depression, PTSD, negative for spe ech problems, drug abuse, changes in senses, or numbness/weakness. Dental/Oral: Pt denied any dental pain during consult exam. ROS otherwise negative. Exam: BP 97/48 (BP Location: Left upper arm, Patient Position: Lying on back;Sitting) | Pulse 62 | Temp 36.7 C (98.1 F) (Oral) | Resp 16 | Ht 1.803 m (5' 11") | Wt 84 kg (185 lb 3 oz) | SpO2 100% | BMI 25.83 kg/m | BSA 2.05 m O2 Delivery Device: None (room air) (04/22/19 1110) General: patient appears well developed; is awake, alert, and oriented to person, place, an d time; normal speech; in NAD; afebrile; nontoxic; vitals reviewed. Respiratory: comfortable, unlabored, no stridor. Head/ Face/ Neck: normocephalic, no e/o trauma, no facial swelling, neck soft, no sensitivi ty to palpation, skin is P/W/D, trachea midline, no lymphadenopathy, no submandibular swelli ng, normal TMJ and limited cervical range of motion. Oral/ Pharynx: no evidence of ulcerations, masses, or lesions, no intraoral swelling, drain age or erythema, floor of mouth soft, no sensitivity to palpation, tongue freely mobile and not elevated, posterior pharynx clear, uvula midline. Dentoalveolar: root tips teeth #4, #14, #15, #18, #20. Large carious lesions noted on teet h #5. 7 and 10. Imaging: Radiographic Imaging Type(s): no dental imaging aquired Assessment/Recommendations: Doug Duran is a 54 year old male with generalized monico res who presents for dento-oral evaluation. Patient was referred to [facility] from Hepatology (prior to liver transplant evaluation) for dental evaluation and possible p re-transplant needs. Patient has a history of fracture teeth with generalized decay. Vital s taken, RMH, no contra-indications to evaluation today, verbal consent achieved, IO/EO exam details above, Clinical images taken. Patient will require treatment following liver transp lant (out patient) due to current INR and MELD scores. Answered all questions. Diagnoses: Multiple edentulous spaces, broken/decayed/non-restorable teeth, requires treatm ent following liver transplant and optimized IRN and MELD. - ASA III - No amish abscesses or intraoral swelling noted. Patient does have generalized heavy plaq ue and calculus. - Recommend extraction of teeth #4, 5, 14, 15, 18 and 20. - We are more than happy to take care of Doug Duran in our clinic as outpatient f ollowing liver transplant and optimization of labs including INR and MELD . - Recommend good oral hygiene: brushing teeth twice daily. - Recommend following up with general dentist for regular dental exams, cleanings and manjit nued comprehensive care. Plan: Dental decay should be addressed following liver transplant and more optimized lab values. Prescriptions today: none Next Encounter: Comprehensive exam and treatment planning with general dentist. SALLIE Gonzalez DDS [facility] 7th floor [facility] [facility] [place] Associated attestation - Ramana Mckeon DDS - 04/22/2019 1:15 PM PDTI am familiar with this patient's medical history and the current active problems as discussed with Dr. Vargas. We r eviewed the assessment and plan and I agree with the plan as outlined. I have reviewed find ings, and agree with the above documentation. At this time, risks of extraction of multiple teeth, due to MELD of 34 and platelets at 54k and trending down,outweigh benefits and should therefore be deferred until after liver cox splant. Patient is therefore cleared from dental perspective for liver transplant and yessenia kevin seek dental treatment on an outpatient basis after transplant.Ester Givens RN, CWOCN - 04/22/2019 11:36 AM PDTAssociated Order(s): IP CONSULT TO WOUND OSTOMYWound Consult Consulted for wound care for left ankle wound. Per esters and emulsifiers supervisor, left foot with closed /resurfaced abrasion, without periwound erythema, without drainage, without odor. No s/s of infection. No wound care needed at this time, but monitor for s/s of superficial infection.E lectronically signed by Ester Givens RN, CWOCN at 04/22/2019 11:39 AM Tiny Collazo DO - 04/22/2019 10:49 AM PDTFormatting of this note might be different from the or iginal. CARDIOLOGY CONSULT NOTE Attending Tourist Escort: Belén Waite MD Referring Physician: Donell Corral MD Primary Care Physician: Sharon David MD DATE OF CONSULTATION: 04/22/2019 REASON FOR CONSULTATION: SVT during stress test HISTORY OF PRESENT ILLNESS Doug Duran is a 54 y.o. male with hx EtOH cirrhosis, alcoholic hepatitis c/b asc ites and HRS type 2 admitted due to an episode of SVT during dobutamine stress evaluation th at was done as part of the liver transplant workup. Pt underwent dobutamine stress test yesterday afternoon. There were no ischemic ECG changes but he had two sustained runs of SVT during recovery and carotid massage and valsalva maneu charlie were applied which converted him back to NSR. He had another episode in the EMS that spo ntaneously converted. Another episode of SVT with rates in the 160s in the ED. He was given Adenosine 6 mg IV which converted him back to NSR. He was also started on Metoprolol tartra te 12.5 mg q6h. Pt stated that during that event he was asymptomatic and did not have palpitations, chest p ain, shortness of breath or lightheadedness. No prior similar episodes. Prior cardiac hx is significant for pulmonary htn with elevated RVSP (echo 06/2018) in s/o v olume overload and was started on diuretics. ROS 10-point ROS negative except as per above PAST MEDICAL HISTORY Past Medical History: Diagnosis Date Cirrhosis (HCC) CKD (chronic kidney disease) PAST SURGICAL HISTORY Past Surgical History Procedure Laterality Date Leg surgery OUTPATIENT MEDICATIONS Medications Prior to Admission Medication Sig Dispense Refill Last Dose furosemide 40 mg oral tablet Take 1 tablet by mouth two times daily. 120 tablet 3 019 at Unknown time lactulose 10 gram/15 mL oral solution Take 15 mL by mouth two times daily. 04/21/2019 at Unknown time spironolactone 100 mg oral tablet Take 100 mg by mouth once daily. 04/20/2019 at Unknow n time No current facility-administered medications on file prior to encounter. Current Outpatient Medications on File Prior to Encounter Medication Sig Dispense Refill furosemide 40 mg oral tablet Take 1 tablet by mouth two times daily. 120 tablet 3 lactulose 10 gram/15 mL oral solution Take 15 mL by mouth two times daily. spironolactone 100 mg oral tablet Take 100 mg by mouth once daily. INPATIENT MEDICATIONS Current Facility-Administered Medications: acetaminophen (TYLENOL) tablet 325-650 mg, 325-6 50 mg, oral, Q4H PRN, Jenifer Akins MD bisacodyl (DULCOLAX) suppository 10 mg, 10 mg, rectal, DAILY PRN, Jenifer Akins MD diphtheria-acellular pertussis-tetanus (ADACEL (booster), Tdap) injection 0.5 mL, 0.5 mL, i ntramuscular, ONE TIME DURING VISIT, Andriy Lewis PA-C heparin injection 5,000 Units, 5,000 Units, subcutaneous, Q12H (Scheduled), Jenifer Akins MD , 5,000 Units at 04/22/19 0854 lactulose (ENULAC) liquid 20 g, 30 mL, oral, TID, Jenifer Akins MD, 20 g at 04/22/19 0854 metoprolol tartrate (LOPRESSOR) tablet 12.5 mg, 12.5 mg, oral, Q6H, Antione Talbot MD, 12.5 mg at 04/22/19 0854 ondansetron ODT (ZOFRAN ODT) tablet 8 mg, 8 mg, oral, Q12H PRN, Jenifer Akins MD pneumococcal (23-valent) polysaccharide vaccine (PNEUMOVAX) injection 0.5 mL, 0.5 mL, intra muscular, ONE TIME IN THE MORNING, Andriy Lewis PA-C polyethylene glycol (MIRALAX) packet 17 g, 17 g, oral, DAILY, Jenifer Akins MD, 17 g at 01/06 0853 polyethylene glycol (MIRALAX) packet 34 g, 34 g, oral, TID PRN, Jenifer Akins MD prochlorperazine (COMPAZINE) injection 5-10 mg, 5-10 mg, intravenous, Q6H PRN, Jenifer Akins MD prochlorperazine (COMPAZINE) tablet 5-10 mg, 5-10 mg, oral, Q6H PRN, Jenifer Akins MD senna-docusate (SENOKOT S) 8.6-50 mg 2 tablet, 2 tablet, oral, BID, Jenifer Akins MD, 2 tabl et at 04/22/19 0854 ALLERGIES Allergies Allergen Reactions Doxycycline Hives and [...] file Gets together: Not on file Attends alevism service: Not on file Active member of club or organization: Not on file Attends meetings of clubs or organizations: Not on file Relationship status: Not on file Other Topics Concern Not on file Social History Narrative Not on file PHYSICAL EXAMINATION Last Vitals: BP 90/44 (BP Location: Left upper arm, Patient Position: Lying on back;Sitting ) | Pulse 61 | Temp 36.8 C (98.2 F) (Oral) | Resp 16 | Ht 1.803 m (5' 11") | Wt 84 kg (185 lb 3 oz) | SpO2 97% | BMI 25.83 kg/m | BSA 2.05 m O2 Delivery Device: None ( room air) (04/22/19 1033) Wt Readings from Last 1 Encounters: 04/21/19 84 kg (185 lb 3 oz) 24 hour Vitals min/max : Systolic (24hrs), Av , Min:89 , Max:118 Diastolic (24hrs), Av, Min:43, Max:65 Pulse Av.6 Min: 61 Max: 161 Temp Av.7 C (98.1 F) Min: 36.6 C (97.8 F) Max: 36.8 C (98.2 F) Resp Av.3 Min: 7 Max: 23 SpO2 Av.9 % Min: 97 % Max: 100 % Intake/Output Summary (Last 24 hours) at 04/22/2019 1056 Last data filed at 04/22/2019 0800 Gross per 24 hour Intake 570 ml Output 550 ml Net 20 ml Gen: Chronically ill jaundiced male laying in bed in NAD HEENT: sclera icteric Neck: supple Lungs: CTAB, no wheezes/rhonchi/rales appreciated Cardiovascular: normal rate, regular rhythm, normal S1 and S2, 2/[address] at right upper sternal border Extremities: warm with 1+ b/l LE edema Peripheral Pulses: 2+ symmetric radial and dorsalis pedis pulses Neuro: alert and oriented, pleasant and cooperative, grossly non-focal Laboratory Data: CBC with diff last 72 hours (or 3 results): Recent Labs 04/21/19 0839 04/21/19 1509 04/22/19 0424 04/22/19 0926 WBC 11.08* 8.26 7.30 6.46 HB 8.9* 7.6* 6.5* 6.5* HCT 25.0* 20.7* 18.4* 18.0* PLT 77* 52* 51* 56* NEUTROPERC 82.0* 79.6* 70.0 -- LYMPHPERC 8.3* 9.4* 18.6 -- MONOPERC 7.5 9.0 9.3* -- BASOPERC 0.5 0.4 0.4 -- EOSPERC 1.1 0.6* 1.2 -- Chemistries: Last 72 Hours (or 3 results): Recent Labs 04/21/19 0839 04/21/19 1509 04/22/19 0424 NA 128* 131* 132* K 4.6 4.8 4.4 CL 96* 96* 99 BICARB 26 26 24 BUN 51* 56* 56* CR 1.72* 1.70* 1.52* CA 9.7 9.3 8.9 MG -- 1.8 2.4 Recent Labs 04/21/19 0839 04/21/19 1509 04/22/19 0424 AST 89* 82* 67* ALT 56 52 43 TBILI 15.5* 15.2* 11.0* AP 211* 171* 139* ALB 3.3* 3.0* 2.5* TP 8.2 7.5 6.3* Lab Results Component Value Date APTT 61.1 (H) 04/21/2019 Troponins, last 72 hours: Recent Labs 04/21/19 1509 04/21/19 1512 TROPONIN 0.09 0.09 Lab Results Component Value Date TROPONIN 0.09 04/21/2019 Lab Results Component Value Date NTPROBNP 286 03/19/2019 Imaging Data: EKG 04/21 ECG - Rate 160, Supraventricular tachycardia, prolonged QTc, no ST segment changes Transthoracic Echocardiogram TTE (03/19) - Aortic Valve: The aortic valve is trileaflet and moderately calcified. No indication of aortic valve regurgitation. The peak & mean transvalvular gradients are 20.4 mmHg and 12.1 mmHg respectively. The DVI is 0.49. The calculated BOOM is 1.99 cm using an LVOT diameter of 2.28 cm (continuity equation). The indexed stroke volume is 40.8 ml/m . Mild aortic stenosis. - The estimated right ventricular systolic pressure is normal at 32.2 mmHg. Final Impressions: 1. The left ventricular size is normal. 2. The LV function is normal. 3. Right ventricular size, thickness and function are normal. 4. The aortic valve is trileaflet and moderately calcified. 5. Mild aortic stenosis (See comments below). 6. There are no prior exams available for comparison. Coronary Angiogram None Dobutamine Stress Echocardiogram (04/21) Final Impressions: 1. At baseline left ventricular [...] > 85% age predicted maximal heart rate. Other Symptoms/Observations: No CP with stress or SVT. Pt with two runs of SVT during recovery lasting approximately 5 minutes each. First SVT episode terminated with carotid massage and valsalva by Dr. Magallon. Second episode terminated on own. Transferred to ED. Chest X-Ray (04/21) IMPRESSION: Clear lungs. Compression deformities in the lower thoracic spine, most likely chronic, although age inde terminate. Impression: Doug Duran is a 54 y.o. male with EtOH cirrhosis, alcoholic hepatitis c/b ascites and HRS type 2 admitted due to an episode of SVT during dobutamine stress evaluation that w as done as part of the liver transplant workup. Pt initially converted by valsalva and carot id massage but had recurrent episode that converted by adenosine 6 mg IV. Asymptomatic durin g the events and currently in NSR on telemetry. No prior similar episodes. Repeat TTE (03/19) showed mild aortic stenosis but otherwise normal including the RVSP. Given that these episo pablo were isolated in s/o dobutamine stress test and has since resolved no further workup is needed at this time. Recommendation: - Continue Metoprolol tartrate 12.5 mg q6h - No further cardiac evaluation needed before transplant - No cardiac contraindication for proceeding with transplant This patient was interviewed and examined by my supervising attending, Dr. Waite, who agrees with the above impression and recommendations unless otherwise documented. Tiny Barney DO, MSc Internal Medicine, PGY-2 Pager [phone] Associated attestation - Belén Waite MD - 04/22/2019 4:44 PM PDTAttending Note I have seen and examined Mr. Duran and discussed the patient's management with the resident . I reviewed the resident s note above and agree with the documented findings and plan of care. 54 year old male with cirrhosis secondary to alcohol who was admitted after developin g SVT following a dobutamine stress echocardiogram yesterday. He is currently in sinus rhyth m and has had no other known episodes of SVT. SVT yesterday can be attributed to the dobutam ine, although he may be a higher than average risk of SVT in the future (e.g around the time of transplant). Would recommend starting metoprolol and continuing it as tolerated during h is hospitalization. His stress test revealed no evidence of ischemia, and his RVSP on the recent echo was stephanie l. I reviewed the images and feel that this is a true measurement and not an underestimation . Therefore, I agreed with ASSISTANT UNIT FORESTER Abran's outpatient assessment, which is that there is no car diac contraindication to transplant at this time. Belén Waite MD [employer], [facility] Cardiovascular [facility] Richard Reese MD - 04/22/2019 8:00 AM PDTFormatting of this note might be different from t nicolasa original. Hepatology Consult Note REASON FOR CONSULT: End stage liver disease REFERRING TEAM/ATTENDING: Donell Corral MD IMPRESSION: Doug Duran is a 54 y.o. male with EtOH cirrhosis, history of recent alcoholic hep atitis 06/2018 complicated by ascites and HRS type 2, admitted after he developed self-limite d SVT during DSE and hospitalized for inpatient evaluation for liver transplantation evaluat ion due to his high meld of 34. He reports last EtOH use was 06/2018 and he has had persisten tly negative Peth 10/2018 and 02/2019. Overall he is asymptomatic but due to his high meld we suggest completion of inpatient evaluation for liver transplantation. Suggest cardiology job susan with recent SVT in the setting of DSE, wound care evaluation of his LLE, and dental evaluation prior to transplantation. He will also need evaluation by nutrition and social wo rk. He has had persistent anemia and there is possible hemolysis with indirect hyperbilirubi nemia; can consider spur cell anemia. RECOMMENDATIONS: - Daily CBC, CMP, direct bilirubin, INR - Sodium restricted diet. Encouraged adequate PO intake and activity level - Continue lactulose titrated to 3-5 BM daily - Transfuse PRN - Wound nurse consult to evaluate LLE wound - Please obtain the following pre-transplant work up Required Labs- please order ALL labs at [facility] even if done at another center. *EVALUATION LABS COMPLETED 04/21/2019 - Repeat PETH - Repeat urine microscopy (21 red cells) Fulminant Hepatic Workup DIAGNOSTIC STUDIES Abdominal Imaging, choose: ?? MRI Abdomen with and without Contrast (SCHEDULED for 04/22/19 as outpatient) DSE 04/21/19 normal. ? . EGD and colonoscopy 07/20/2018 at [facility] normal to ileum with good bowel prep. VACCINES ?? PCV13 or PPSV23 (PPSV23 1983) ?? Tdap injection (1983) ?? Hepatitis A vaccine (HAV IgG pos 04/21/2019) ?? Hepatitis B vaccination (HBsAb neg 04/21/2019) OTHER Consults ?? Cardiology Consult ?? Transplant Social Work, NOTIFED ?? Transplant Nutrition, NOTIFIED ?? Transplant Pharmacy, DONE ?? Liver Transplant Surgeon, DONE ?? Transplant Psychology/Psychiatry Consult NEEDED ?? Oral & Maxillofacial Surgery [phone] (please consult) Thank you for this consult; we will continue to follow. This plan was discussed and formula jeannette with the hepatology attending, Dr. Rodriguez. Richard Reese MD Fellow, Gastroenterology Pager: [phone] HISTORY OF PRESENT ILLNESS Doug Duran is a 54 y.o. male with a past medical history significant for EtOH cir rhosis, history of recent alcoholic hepatitis 06/2018 complicated by ascites and HRS type 2, admitted after he developed self-limited SVT during DSE. He was undergoing ambulatory DSE yesterday when he developed SVT with HR in the 180s and SB P in the 80s. He was asymptomatic on evaluation in the ER and this resolved after carotid ma ssage by his brick baker. He was able to complete the DSE which was negative and was transf erred to the ER where he was found to be in Afib with RVR. He was treated with adenosine 6 m g, metoprolol 12.5 mg PO, magnesium sulfate 2 gm IV (level of 1.8). He was hospitalized in [facility] December-January 2018 with pneumonia and noticed jaundice at at time. He was instructed to discontinue all alcohol at that time but continued to drink 3- 4 beers daily. He started following up regularly and was diagnosed with cirrhosis c/b ascite s and was started on diuretics. He then presented to [place] for anemia with hgb of 5.4, M CV 114 and LE wounds (lymphedema, petechiae, venostasis ulcers) and was transferred to [facility] where he was hospitalized from 07/17-07/24/2018. He received IV ferr ic gluconate for 3 days and required 6 units pRBC. GI consulted and EGD/Colonoscopy without a source of hemorrhage. Hematology was consulted for an elevated LDH with possible low grade hemolysis vs ineffective erythropoiesis. He was treated with ancef and transitioned to [facility] ex for venostasis ulcers. His outpatient medications include lactulose with 2 bm a day, lasi x 40 mg BID and spironolactone 100 mg daily. No history of EVB, SBP, HE, HCC. Reports from -December he was having symptomatic anemia without over GI blood loss and was getting CBC luis manuel ry other week with 2-4 units pRBC a month. No transfusion since December. The patient's medical history, focusing on liver [...] cancer screening: no polyps 06/2018 5. Social EtOHWeekends 8-10 beers 30 years, started cutting down to daily beers and up to 3-4 beers a fter 12/2017. History of DUI 30 years ago and required outpatient rehab for 10 weeks. Last us e was 06/23/2018, started relapse program prevention December-March No smoking No drug including THC for 8 years, 4 adult children 1/2: mom (Priyanka, retired) and sister (Doreen) from [place], [place]. Both are planning to b e primary care givers after transplantation and will fly/live with him with his aunt and [facility] le in [place] REVIEW OF SYSTEMS All other ROS was performed and is negative other than that stated in the HPI. PAST MEDICAL HISTORY Past Medical History: Diagnosis Date Cirrhosis (HCC) CKD (chronic kidney disease) FAMILY HISTORY Family History Problem Relation Liver [...] file Gets together: Not on file Attends alevism service: Not on file Active member of club or organization: Not on file Attends meetings of clubs or organizations: Not on file Relationship status: Not on file Other Topics Concern Not on file Social History Narrative Not on file OUTPATIENT MEDICATIONS No current facility-administered medications on file prior to encounter. Current Outpatient Medications on File Prior to Encounter Medication Sig Dispense Refill furosemide 40 mg oral tablet Take 1 tablet by mouth two times daily. 120 tablet 3 lactulose 10 gram/15 mL oral solution Take 15 mL by mouth two times daily. spironolactone 100 mg oral tablet Take 100 mg by mouth once daily. INPATIENT MEDICATIONS acetaminophen (TYLENOL) tablet 325-650 mg, 325-650 mg, oral, Q4H PRN bisacodyl (DULCOLAX) suppository 10 mg, 10 mg, rectal, DAILY PRN heparin injection 5,000 Units, 5,000 Units, subcutaneous, Q12H (Scheduled) lactulose (ENULAC) liquid 20 g, 30 mL, oral, TID metoprolol tartrate (LOPRESSOR) tablet 12.5 mg, 12.5 mg, oral, Q6H ondansetron ODT (ZOFRAN ODT) tablet 8 mg, 8 mg, oral, Q12H PRN polyethylene glycol (MIRALAX) packet 17 g, 17 g, oral, DAILY polyethylene glycol (MIRALAX) packet 34 g, 34 g, oral, TID PRN prochlorperazine (COMPAZINE) injection 5-10 mg, 5-10 mg, intravenous, Q6H PRN prochlorperazine (COMPAZINE) tablet 5-10 mg, 5-10 mg, oral, Q6H PRN senna-docusate (SENOKOT S) 8.6-50 mg 2 tablet, 2 tablet, oral, BID ALLERGIES: Allergies Allergen Reactions Doxycycline Hives and Rash PHYSICAL EXAM BP 93/43 (BP Location: Left upper arm, Patient Position: Lying on back;Sitting) | Pulse 65 | Temp 36.8 C (98.2 F) (Oral) | Resp 16 | Ht 1.803 m (5' 11") | Wt 84 kg (185 lb 3 oz) | SpO2 100% | BMI 25.83 kg/m | BSA 2.05 m : Systolic (24hrs), Av , Min:89 , Max:118 / Diastolic (24hrs), Av, Min:43, Max:65 Pulse Av.4 Min: 64 Max: 161 Temp Av.7 C (98.1 F) Min: 36.6 C (97.8 F) Max: 36.8 C (98.2 F) Resp Av.1 Min: 7 Max: 23 SpO2 Av.9 % Min: 99 % Max: 100 % GEN: NAD, jaundice HEENT: MMM, scleral icterus RESP: CTAB anteriorly CV: RRR, no MRG ABD: non tender, minimally distended with ascites, no rebound or guarding, normal BS MSK: mild peripheral edema, pustules LABS and IMAGING CBC with diff last 72 hours (or 3 results) - Refreshable Recent Labs 04/21/19 0839 04/21/19 1509 04/22/19 0424 WBC 11.08* 8.26 7.30 HB 8.9* 7.6* 6.5* HCT 25.0* 20.7* 18.4* PLT 77* 52* 51* NEUTROPERC 82.0* 79.6* 70.0 LYMPHPERC 8.3* 9.4* 18.6 MONOPERC 7.5 9.0 9.3* BASOPERC 0.5 0.4 0.4 EOSPERC 1.1 0.6* 1.2 Recent Labs 04/21/19 0839 04/21/19 1509 04/22/19 0424 NA 128* 131* 132* K 4.6 4.8 4.4 CL 96* 96* 99 BICARB 26 26 24 BUN 51* 56* 56* CR 1.72* 1.70* 1.52* GLU 133* 141* 156* CA 9.7 9.3 8.9 AST 89* 82* 67* ALT 56 52 43 AP 211* 171* 139* TBILI 15.5* 15.2* 11.0* TP 8.2 7.5 6.3* ALB 3.3* 3.0* 2.5* ANIONGAP 6 9 9 ANIONALBCOR 7 11 12* Lab Results Component Value Date INRPT 3.26 (H) 04/22/2019 documented in this e ncounter ED Notes Christal Quiles RN - 04/21/2019 9:17 PM PDTPt moved to [facility], transferred from stretcher to inpatient bed independently. Steady gait, denies dizziness and lightheadedness, used rest room. On associate teacher. HR WNL, denies chest pain and SOB. A&Ox4, provided water and sandw ich. No concerns or needs at this time Call light within reach. Alberto Sandhu RN - 04/21/2019 8:56 PM PDTReport given to nurse assuming care Cheyenne montoya RN. Pt transferred to [place] [id number] via stretch and was able to walk from stretch in the h allway to hospital bed inside the room. Vitals updated prior to transfer. Electronically sig patsy by Alberto Lo RN at 04/21/2019 8:57 PM Alberto Sadnhu RN - 04/21/2019 7:18 PM PDTAssumed care of pt. Report provided by GH. Norman RN. Ester Burk RN - 04/21/2019 6:18 PM PDTVoided tea colored urine independently into urinal. 19 6:18 PM PDTEster Rice RN - 04/21/2019 5:34 PM PDTConsult service at bedside.Daina croft signed by Ester Rice RN at 04/21/2019 5:34 PM PDTBejna Doss MD - 04/21/2019 5:18 PM PDT Received SBAR and accepted care of patient from the departing resident at 5:18 PM. Please see the departing resident's note for additional elements of the history, physical, and ED c ourse. Situation/Background: In brief, this patient is a 54 y.o. male with a history of ESLD, awai ting transplant, who presented to the ED with SVT during dobutamine stress test. Recurrent episodes during ED course. 6mg adenosine with conversion. Work-up to this point has included: Lab Results Results for orders placed or performed during the hospital encounter of 04/21/19 COMPLETE METABOLIC SET (NA,K,CL,CO2,BUN,CREAT,GLUC,CA,AST,ALT,BILI TOTAL,ALK PHOS,ALB,PROT TOTAL) Result Value Ref Range GLUCOSE, PLASMA (LAB) 141 (H) 70 - 99 mg/dL BUN, PLASMA (LAB) 56 (H) 6 - 20 mg/dL CREATININE PLASMA (LAB) 1.70 (H) 0.70 - 1.30 mg/dL EGFR - CENTRAL AFRICAN 51 (L) >60 mL/min EGFR NON -CENTRAL AFRICAN 42 (L) >60 mL/min SODIUM, PLASMA (LAB) 131 (L) 136 - 145 mmol/L POTASSIUM, PLASMA (LAB) 4.8 3.4 - 5.0 mmol/L CHLORIDE, PLASMA (LAB) 96 (L) 97 - 108 mmol/L TOTAL CO2, PLASMA (LAB) 26 21 - 32 mmol/L CALCIUM, PLASMA (LAB) 9.3 8.6 - 10.2 mg/dL CALCIUM(ALB CORRECTED) 10.1 8.6 - 10.2 mg/dL BILIRUBIN TOTAL 15.2 (H) 0.3 - 1.2 mg/dL TOTAL PROTEIN, PLASMA (LAB) 7.5 6.4 - 8.2 g/dL ALBUMIN, PLASMA (LAB) 3.0 (L) 3.5 - 4.7 g/dL ALK PHOS 171 (H) 53 - 128 U/L AST(SGOT) 82 (H) <=41 U/L ALT (SGPT) 52 <=60 U/L ANION GAP 9 4 - 11 mmol/L ANION GAP(ALB CORRECTED) 11 4 - 11 mmol/L POTASSIUM CMNT No Hemo BILI T CMNT No Hemo AST CMNT No Hemo INR Result Value Ref Range INR 2.94 (H) 0.90 - 1.20 INR APTT (ACT. PART. THROMBO TIME) Result Value Ref Range APTT 61.1 (H) 26.0 - 36.0 seconds MAGNESIUM, PLASMA Result Value Ref Range MAGNESIUM,PLASMA 1.8 1.6 - 2.6 mg/dL TROPONIN I, PLASMA Result Value Ref Range TROPONIN I 0.09 <0.80 ng/mL 12 LEAD ECG Result Value Ref Range VENTRICULAR RATE 82 bpm ATRIAL RATE 82 ms P-R INTERVAL 177 ms P AXIS 68 deg QRS DURATION 123 ms QT 387 ms QTCB 451 ms R AXIS 8 deg T AXIS 69 deg ECG IMPRESSION Sinus rhythm ECG IMPRESSION Probable left atrial enlargement ECG IMPRESSION Nonspecific intraventricular conduction delay ECG IMPRESSION Nonspecific T abnormalities, anterior leads- ABNORMAL ECG - ECG IMPRESSION Electronically signed by: PRELIMINARY - Unconfirmed 12 LEAD ECG Result Value Ref Range VENTRICULAR RATE 160 bpm ATRIAL RATE 160 ms P-R INTERVAL 215 ms P AXIS 47 deg QRS DURATION 109 ms QT 306 ms QTCB 499 ms R AXIS 8 deg T AXIS 86 deg ECG IMPRESSION Sinus tachycardia ECG IMPRESSION Prolonged PA interval ECG IMPRESSION Left atrial enlargement ECG IMPRESSION Repolarization abnormality, prob rate related ECG IMPRESSION Borderline prolonged QT interval- ABNORMAL ECG - ECG IMPRESSION Electronically signed by: PRELIMINARY - Unconfirmed CBC AND AUTO DIFF Result Value Ref Range WHITE CELL COUNT 8.26 3.50 - 10.80 K/cu mm RED CELL COUNT 1.96 (L) 4.50 - 6.00 M/cu mm HEMOGLOBIN 7.6 (L) 13.5 - 17.5 g/dL HEMATOCRIT 20.7 (L) 41.0 - 53.0 % MCV 105.6 (H) 80.0 - 100.0 fL MCHC 36.7 (H) 32.0 - 36.0 g/dL RDW SD 45.7 35.1 - 46.3 fL PLATELET COUNT 52 (L) 150 - 400 K/cu mm MPV 10.0 9.7 - 12.3 fL NRBC% 0.0 0.0 - 0.3 % NRBC# 0.00 0.00 - 0.02 K/cu mm NEUTROPHIL % 79.6 (H) 50.0 - 70.0 % LYMPHOCYTE % 9.4 (L) 18.0 - 42.0 % MONOCYTE % 9.0 3.5 - 9.0 % EOS % 0.6 (L) 1.0 - 3.0 % BASO % 0.4 0.0 - 2.0 % IG% 1.0 0.0 - 1.0 % NEUTROPHIL # 6.58 1.80 - 7.70 K/cu mm LYMPHOCYTE # 0.78 (L) 1.00 - 4.80 K/cu mm MONOCYTE # 0.74 0.10 - 0.90 K/cu mm EOS # 0.05 0.00 - 0.50 K/cu mm BASO # 0.03 0.00 - 0.10 K/cu mm IG# 0.08 0.00 - 0.10 K/cu mm Imaging Results (last 24 hours) X-ray Chest 2 View Result Date: 04/21/2019 EXAM: CHEST 2 VIEWS HISTORY: Acute Chest Pain COMPARISON: None FINDINGS: Cardiomedias tinal contours are unremarkable. The lungs are clear. No pulmonary edema or consolidation. T here is no pleural effusion or pneumothorax. Moderate compression deformities noted in the l ower thoracic spine, age indeterminate. IMPRESSION: Clear lungs. Compression deformities in the lower thoracic spine, most likely chronic, although age indeterminate. I have person ally reviewed the images and, if necessary, edited the report. I agree with the report as no w presented. Final signature: Bakari Paredes MD 04/21/2019 4:27 PM Preliminary: Bakari gloria MD Dictation initiated: Bakari Paredes MD 04/21/2019 4:26 PM Medications magnesium sulfate in water IV (RTU) 2 g (2 g intravenous New Bag 04/21/19 1701) metoprolol tartrate (LOPRESSOR) tablet 12.5 mg (has no administration in time range) adenosine (ADENOCARD) injection 6 mg (6 mg intravenous IV Push 04/21/19 1716) At time of sign-out, patient is waiting for: admission to [facility] Med, Hepatology following Most recent vital signs: BP (!) 111/58 | Pulse 83 | Temp 36.6 C (Oral) | Resp 14 | Wt 84.4 kg (186 lb) | SpO2 100% | BMI 25.94 kg/m | BSA 2.06 m Assessment/Recommendations per Primary Team: SVT, awaiting admission ib[facility]ra Clinical Course and Assessment during my shift: No further acute events during my shift. Final Disposition: Patient admitted to [facility] Alberto Doss MD MPH Ester Burk RN - 5:16 PM PDTPt went into SVT, MD summoned to bedside. Pt remains A & O x4. Ester Burk RN - 019 4:16 PM PDTMD Antione bennettayed pt to eat and drink for now. Family provided food, ice water given. Pt to x-ray. Ester Burk RN - 04/21/2019 3:50 PM PDTI have assumed care of this patient. Adonis Pedraza MD - 04/21/2019 3:17 PM PDTFormattin g of this note might be different from the original. ED Shared Provider Note, co-authored by Dr. Carroll and Antione Talbot MD: HPI Doug Duran is a 54yoM who presents from clinic for SVT leading to hypotension. He is undergoing liver transplant workup and received dobutamine stress test. He had an epi sode of sustained SVT. Tourist Escort applied carotid massage. Another episode of SVT in EMS. He denies any chest pain, shortness of breath, palpitations. No fevers or chills. No recent medication changes. PCP: Sharon David MD Patient Active Problem List Diagnosis Date Noted Alcoholic cirrhosis of liver with ascites (HCC) 02/27/2019 Chronic kidney disease 02/27/2019 Hepatorenal syndrome (HCC) 02/27/2019 Abnormal echocardiogram 02/27/2019 Past medical history: ESLD, CKD PSH: none Medications Prior to Admission Medications Prescriptions Last Dose Informant Patient Reported? Taking? furosemide 40 mg oral tablet 04/21/2019 at Unknown time No Yes Sig: Take 1 tablet by mouth two times daily. lactulose 10 gram/15 mL oral solution 04/21/2019 at Unknown time Yes Yes Sig: Take 15 mL by mouth two times daily. spironolactone 100 mg oral tablet 04/20/2019 at Unknown time Yes Yes Sig: Take 100 mg by mouth once daily. Facility-Administered Medications: None Allergies Allergen Reactions Doxycycline Hives and Rash Social History reports that he has been using chew. him reports that him does not currently drink alcoho l or use drugs. Family History noncontributory Review of Systems Constitutional: Negative for fever. HENT: Negative for headaches. Respiratory: Negative for shortness of breath. Cardiovascular: Negative for chest pain. Gastrointestinal: Negative for abdominal pain. Genitourinary: Negative for dysuria. Musculoskeletal: Negative for joint pain. Skin: Negative for rash. Neurological: Negative for loss of consciousness. Psychiatric: Negative for suicidal ideas. All other systems reviewed and are negative. ED Triage Vitals BP Temp Heart Rate Pulse - Plethysmograph Resp SpO2 04/21/19 1502 04/21/19 1504 04/21/19 1504 04/21/19 1504 04/21/19 1504 04/21/19 1504 (!) 101/59 36.6 C 89 86 pulses/min 12 100 % Physical Exam Constitutional: He is oriented to person, place, and time. No distress. Chronically ill appearing HENT: Head: Normocephalic and atraumatic. Eyes: Scleral icterus is present. Neck: Normal range of motion. Neck supple. Cardiovascular: Normal rate and regular rhythm. Murmur heard. Intermittent bursts of tachycardia 2/6 systolic murmur in LUSB Pulmonary/Chest: Effort normal and breath sounds normal. No respiratory distress. Abdominal: Soft. He exhibits distension. There is no tenderness. There is no rebound. Musculoskeletal: Normal range of motion. He exhibits edema. Neurological: He is alert and oriented to person, place, and time. Skin: Skin is warm and dry. Nursing note and vitals reviewed. ED COURSE AND MEDICAL DECISION MAKING: I reviewed the EKG and NSR, HR 82, LAE, normal PA, QRS long at 123ms in a NSIVCD pattern, T WI in V1-V3, normal QTc. I reviewed his telemetry and there were intermittent bursts of I reviewed the labs and Hepatic coagulopathy Elevated bilirubin from ESLD Normal K Low fT4 but normal TSH Hyponatremia - chronic Azotemia - baseline Suspect SVT is being driven by recent dobutamine administration. No chest pain so feel ACS unlikely. Patient had intermittent tachycardia in the ED. He showed what appeared to be a fib initial ly on tele. He then had an episode of tachycardia to 160 which seemed very regular, consiste nt with SVT. He was given adenosine 6mg IV which converted his rhythm back to sinus. He was started on PO metoprolol 12.5mg to help prevent recurrent SVT. He maintained an adequate BP throughout this with systolics in the 110s. We discussed his case with hepatology who requested admission to expedite transplant workup . He was admitted to [facility] w/ hepatology following. ED Medication Administration from 04/21/2019 1457 to 04/21/2019 1746 Date/Time Order Dose Route Action 04/21/2019 1716 adenosine (ADENOCARD) injection 6 mg 6 mg intravenous IV Push 04/21/2019 1701 magnesium sulfate in water IV (RTU) 2 g 2 g intravenous New Bag 04/21/2019 1730 metoprolol tartrate (LOPRESSOR) tablet 12.5 mg 12.5 mg oral Given Admit Requested: Apr 21, 2019 4:20 PM IMPRESSION: I47.1 SVT (supraventricular tachycardia) (HCC) I48.0 Paroxysmal A-fib (HCC) K70.31 Alcoholic cirrhosis of liver with ascites (HCC) K76.7 Hepatorenal syndrome (HCC) N18.9 Chronic kidney disease, unspecified CKD stage PLAN, DISPOSITION AND FOLLOW-UP: Admit to [facility] with hepatology following New Prescriptions No medications on file Adonis Carroll MD 04/21/19, 6:00 PM In this note documentation noting the patient's drug/alcohol use may be incorrect. Review p atient's history. HIM Admin 12/18/19 0848 Amy Ramirez RN - 11/2018 3:01 PM PDTEMS: Donell. While having dobutamine stress test in preparation for liver transplant pt went into 2 episodes of SVT. Tourist Escort performed carotid massage at least once. 250 mL fluid given at [facility]. Had another episode during transport for 5 minutes. No i nterventions changed it. No s/sx. Noted began to yawn a lot. 150 mL fluid. 105/65 droppe d down to 89/56 during SVT. ster Rice RN - 04/21/2019 2:59 PM PDTBed: 04RS Expected date: Expected time: Means of arrival: Comments: Dr. Hassan, Cardiology 54 y/o M pre-liver transplant with dobutamine stress test done as outpatient. Developed hyp otension for about 5 min before resolving with carotid massage. Prior to leaving clinic, ano ther episode occurred. Coming in by ambulance. Richard Thorpe PA-C documented in this encounter Miscellaneous Notes Handoff - Shalom Henson RN - 04/24/2019 1:52 PM PDTNursing Handoff Patient Daily Goal: Finish dinner, and spend time with daughter radha (04/23/19 205 7) Patient Specific Preferences: likes door open, protein shake in fridge (04/22/192002 ) [facility] IP NURSE HANDOFF: Tamez hospital course events: 04/21- admitted following cardiac stress t est (part of the work up for liver tx) after developing SVT following a dobutamine stress ec hocardiogram, Pt initially converted by valsalva and carotid massage but had recurrent episo de that was converted by adenosine 6 mg IV 04/22- 2 units of blood transfused, Abd MRI completed Hx- ETOH cirrhosis, alcoholic hepatitis c/b ascites and HRS type 2 andoff - Tyson Monge RN - 04/24/2019 2:57 AM PDTNursing Handoff Patient Daily Goal: Finish dinner, and spend time with daughter radha (04/23/19 205 7) Patient Specific Preferences: likes door open, protein shake in fridge (04/22/192002 ) [facility] IP NURSE HANDOFF: Tamez hospital course events: 04/21- admitted following cardiac stress t est (part of the work up for liver tx) after developing SVT following a dobutamine stress ec hocardiogram, Pt initially converted by valsalva and carotid massage but had recurrent episo de that was converted by adenosine 6 mg IV 04/22- 2 units of blood transfused, Abd MRI completed Hx- ETOH cirrhosis, alcoholic hepatitis c/b ascites and HRS type 2 HYGIENE/INFECTION Patient/Family Target: As evidenced by: RESTORATIVE MEASURES/SELF-MANAGEMENT Patient/Family Target: Adequate nutritional intake as evidence by eating >50% of meals, and consuming protein sh iman Progress to Target: Improving As evidenced by: Donell expressed a desire for foods such as hot dogs and burgers, and was jealous of his natanael cesar who was at a [facility]. He verbalized some frustration with ordering, and chemo ng unable to get certain foods from our menu. However, Donell is making every effort to keep hi mself healthy prior to his liver transplant, and ordered steel head, with fruits and vegetab les on the side. He opted to save the protein shake in the unit refrigerator for later, wher e another 1/2 shake is also present. NURSING ASSESSMENT & RECOMMENDATIONS FORWARD Nursing Assessment of Patient Stability Risk: Moderately stable Recommendations Forward: PSYCH/SOC: Has been sober from alcohol for 9 months, awaiting live r transplant. Continue support around sobriety and coping. CV:SR/SB rates 50s-60s, on scheduled metoprolol. Hx of SVT and a fib GI: ESLD, lactulose given, declining senna and miralax, but stated he may be interested in Senna in the morning. Encourage PO intake, protein shakes are labeled and in the fridge. Activity: Ambulates independently in the room Plan: Cardiac MRI 04/24, work up for liver transplant. Cards signed off, Dental deferring ext ractions until after transplant completed Barriers to discharge: Cardiac MRI completion. In house until liver transplant? Dmitri - Jamaal Kearns RN - 04/23/2019 5:00 AM PDTNursing Handoff Patient Daily Goal: eat dinner, sleep, walk once more, wash up (04/22/192002) Patient Specific Preferences: likes door open, protein shake in fridge (04/22/192002 ) [facility] IP NURSE HANDOFF: Tamez hospital course events: 04/21- admitted following cardiac stress t est (part of the work up for liver tx) after developing SVT following a dobutamine stress ec hocardiogram, Pt initially converted by valsalva and carotid massage but had recurrent episo de that was converted by adenosine 6 mg IV 04/22- 2 units of blood transfused, Abd MRI completed Hx- ETOH cirrhosis, alcoholic hepatitis c/b ascites and HRS type 2 HYGIENE/INFECTION Patient/Family Target: Donell will maintain mobility as demonstrated by ambulating in the the jordan twice overnight. Progress to Target: Improving As evidenced by: Donell is independent in the room and went on three walks around the unit overnight. Very mobi le and interested in gaining strength that had been lost since being on bedrest/awaiting niels er transplant. Continue to encourage mobility and strengthening exercises. NURSING ASSESSMENT & RECOMMENDATIONS FORWARD Nursing Assessment of Patient Stability Risk: Moderately unstable Recommendations Forward: PSYCH/SOC: Has been sober from alcohol for 9 months, awaiting liver transplant. Continue abreu pport around sobriety and coping. CV: NSR with HR in 60's, Softer SBP in the 90's, MAP high 50's, team aware. GI: Had about 8 loose BM's yesterday and overnight. ESLD, lactulose given, has expressed re luctance to getting many more stool softeners, MiraLax and lactulose and senna available. MISC: 2 units RBC on 04/22. Plan: Per Internal Med note: May remain in-house until OLT, will d/w Liver team, cards has signed off until transplant is complete. andoff - Mahnaz Menendez RN - 04/22/2019 6:12 PM PDTNursing Handoff Patient Daily Goal: Donell would like to take it easy today (04/22/19 1097) Patient Specific Preferences: likes door open (04/21/19 5987) [facility] IP NURSE HANDOFF: Tamez hospital course events: 04/21- admitted following cardiac stress t est (part of the work up for liver tx) after developing SVT following a dobutamine stress ec hocardiogram, Pt initially converted by valsalva and carotid massage but had recurrent episo de that was converted by adenosine 6 mg IV 04/22- 2 units of blood transfused, Abd MRI completed Hx- ETOH cirrhosis, alcoholic hepatitis c/b ascites and HRS type 2 NURSING ASSESSMENT & RECOMMENDATIONS FORWARD Nursing Assessment of Patient Stability Risk: Moderately unstable Recommendations Forward: PSYCH/SOC: Has been sober from alcohol for 9 months, awaiting live r transplant. Continue support around sobriety and coping. CV: NSR with HR in 60's, Softer SBP in the 90's, MAP high 50's, team aware. GI: Had several formed stool today. ESLD, lactulose given, has expressed reluctance to gett ing many more stool softeners, MiraLax and lactulose Plan: Per Internal Med note: May remain in-house until OLT, will d/w Liver team, cards has signed off until transplant is complete lan of Care - Hoda Shepherd, RD - 04/22/2019 3:33 PM PDTFormatting of this note might be different from dominick james. In-patient Nutrition - Liver Transplant Evaluation NOTE: The floor dietitian will manage this patient s nutrition during this admit. Assessment: Pt seen for 60 min w/ Mother and sister by the bedside. Doug Duran is a 54 y.o. 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 CLIENT HX: Significant Medical/Surgical History: Patient Active Problem List Diagnosis Alcoholic cirrhosis of liver with ascites (HCC) Chronic kidney disease Hepatorenal syndrome (HCC) Abnormal echocardiogram Cirrhosis (HCC) CKD (chronic kidney disease) SVT (supraventricular tachycardia) (HCC) Paroxysmal A-fib (HCC) Chronic kidney disease, unspecified CKD stage Family Hx: No major health issues with the family. Prescription meds: Current Facility-Administered Medications: acetaminophen (TYLENOL) table t 325-650 mg, 325-650 mg, oral, Q4H PRN, Jenifer Akins MD bisacodyl (DULCOLAX) suppository 10 mg, 10 mg, rectal, DAILY PRN, Jenifer Akins MD diphtheria-acellular pertussis-tetanus (ADACEL (booster), Tdap) injection 0.5 mL, 0.5 mL, i ntramuscular, ONE TIME DURING VISIT, Andriy Lewis PA-C heparin injection 5,000 Units, 5,000 Units, subcutaneous, Q12H (Scheduled), Jenifer Akins MD , 5,000 Units at 04/22/19 0854 hepatitis B vaccine (recombinant) (HEPLISAV-B) 20 mcg/0.5 mL 0.5 mL, 0.5 mL, intramuscular, ONCE, Andriy Lewis PA-C lactulose (ENULAC) liquid 20 g, 30 mL, oral, TID, Jenifer Akins MD, 20 g at 04/22/19 0854 ondansetron ODT (ZOFRAN ODT) tablet 8 mg, 8 mg, oral, Q12H PRN, Jenifer Akins MD pneumococcal (23-valent) polysaccharide vaccine (PNEUMOVAX) injection 0.5 mL, 0.5 mL, intra muscular, ONE TIME IN THE MORNING, Andriy Lewis PA-C polyethylene glycol (MIRALAX) packet 17 g, 17 g, oral, DAILY, Jenifer Akins MD, 17 g at 01/06 0853 polyethylene glycol (MIRALAX) packet 34 g, 34 g, oral, TID PRN, Jenifer Akins MD prochlorperazine (COMPAZINE) injection 5-10 mg, 5-10 mg, intravenous, Q6H PRN, Jenifer Akins MD prochlorperazine (COMPAZINE) tablet 5-10 mg, 5-10 mg, oral, Q6H PRN, Jenifer Akins MD senna-docusate (SENOKOT S) 8.6-50 mg 2 tablet, 2 tablet, oral, BID, Jenifer Akins MD, 2 tabl et at 04/22/19 0854 Herbal Supplements: None. Vitamins/Minerals: None. OTC Meds: None FOOD AND NUTRITION HX: Current diet prescription per patient is low sodium here at the hospital, but at home he co ntinues to eat processed foods as he lives by himself. Lives w/ by himself and he manages food preparation. Eats out rarely. Appetite is fair mostly eats 2 meals per day and his energy level is low. Exercise: none. Nutritional Supplements Was drinking Protein plus with 30 gm of protein/serving. ANTHROPOMETRICS: BP 92/46 (BP Location: Left upper arm, Patient Position: Lying on back;Sitting) | Pulse 59 | Temp 36.6 C (97.9 F) (Oral) | Resp 16 | Ht 1.803 m (5' 11") | Wt 84 kg (185 lb 3 oz) | SpO2 100% | BMI 25.83 kg/m | BSA 2.05 m BMI Body mass index is 25.83 kg/m. Wt Hx: Wt Readings from Last 4 Encounters: 04/21/19 84 kg (185 lb 3 oz) 04/21/19 83.9 kg (185 lb) 04/21/19 84.4 kg (186 lb) 03/19/19 81.6 kg (180 lb) BIOCHEMISTRIES, OTHER TESTS: Lab Results Lab Test Name Results Date/Time NA 132 04/22/19 NA 130 03/11/19 K 4.4 04/22/19 K 4.9 03/11/19 CL 99 04/22/19 CL 99. 03/20/1999 BICARB 24 04/22/19 BICARB 33. 03/20/1999 BUN 56 04/22/19 BUN 57 03/11/19 CR 1.52 04/22/19 CR 1.61 04/06/19 CR 1.5 11/19/18 GLU 156 04/22/19 GLU 179 03/11/19 CA 8.9 04/22/19 MG 2.4 04/22/19 PO4 5.1 11/19/18 A1C <3.5 04/21/19 FERRITIN 4,124 04/21/19 FERRITIN 5,073 01/22/19 HCT 18.0 04/22/19 HCT 19.6 03/11/19 MCV 105.9 04/22/19 MCV 88.1 03/20/1999 ALB 2.5 04/22/19 ALB 3.0 04/06/19 Fe +204 % Sat 105 Ferr 4124 TIBC 194 Zinc No data Vit A No data Vit D 19.9 low U.Pro -tive U Glu -tive NUTRITION PHYSICAL EXAM: GI symptoms: nausea is taking medication and diarrhea secondary to lactulose. Appearance, other findings: Edema 2+ bilaterally in the lower extremities. Nutrition focuse d physical exam: Nails indicated decreased capillary refill, tongue was beefy red with deep crevices and smooth without many papilla indicative of vitamin B deficiency. Noted significa nt muscle wasting in his temporalis, biceps, pectoralis, trapezius. Skin and eyes were jaund iced. Dental: Has several missing teeth, continues to chew tobacco. He has a large scab on h is left leg above his ankle. It opens up often especially when he showers. 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 0 to 2 = no risk; 3 = sub-frail; 4 to 5 = frail Nutrition Diagnosis Acceptable per BMI, has severe fluid retention in his legs. Altered nutrition-related labs due to changes in nutrient disposition in ESLD as shown by l ow albumin and low Hct level, his Hgb has decreased further since his hospitalization. Dieta ry pro intake appears to be below goal of 1.2 gm/kg, due to smaller portion sizes, skipped m eals and does not have enough energy to plan and cook for himself. Suggested to aim for 100 gm of protein/day. Will start him on a protein supplement in the in-patient setting as he is admitted to the hospital. Encouraged to try and eat 6 small meals with high protein. Serum ferritin and iron level was high, suggest a MVI without iron. Assessment of post transplant outcomes: Weight Gain Moderate risk as appetite will increas e post transplant; Diabetes low risk no family Hx of DM. Intervention/ Plan: Recommendations: Silver type MVI (no Fe); 1 times a day; Suggest to aim for 100 gm of protein/day. Suggest a protein supplement BID. If zinc level is low, suggest 110 mg ZnSO4 x 2-3 mo; re-check serum Zn and stop supplemen hillary Zn when serum Zn normalizes If retinol level is low, [place] A 40638 international units oral capsule (take 2 tab s): Take 30022 international units PO 3 times a week for 3 months. Re-check Vit A level if n ormal d/c the supplement. Pt would likely benefit from 13379 IU Vit D3 1x/wk x6-8 wks, followed by maintenance dose of at least 2000 IU Vit D3/day thereafter. Moderate risk for liver transplantation from a nutrition perspective. Hoda Avalos MS RD CDE [employer] LD Pager #: [phone] andoff - Jesika Kearns RN - 04/22/2019 6:44 AM PDTNursing Handoff Patient Daily Goal: eat something then get some sleep (04/21/192335) Patient Specific Preferences: likes door open (04/21/192335) [facility] IP NURSE HANDOFF: Recommendations Forward: PSYCH/SOC: Has been sober from alcohol for 9 months, awaiting liver transplant. Continue abreu pport around sobriety and coping. CV: NSR with HR in 60's overnight. Metop dose held this AM. Softer SBP in the 90's, MAP hig h 50's, team aware. GI: Had one formed stool overnight. ESLD, lactulose given. H&H this morning 6.5 and 18.5, type and screen current, awaiting MD to consent. Barriers to discharge: D Teaching Notes - R Antione castillo MD - 04/21/2019 6:07 PM PDTTeaching Attestation I saw and evaluated the patient and discussed the diagnosis and management of the patient w ith the Resident. I performed and confirmed the tamez portions of the service. Please refer to the shared note from today's visit. I agree with the documentation, findin gs, and plan of care. 6:07 PM, Antione Talbot MD, Faculty Note: ED Attending Critical Care Time: 35 Minutes (30-74min, >74min) spent on direct patient c are, interpretation of diagnostics and consultation with other providers, exclusive of separ ately billable procedures. [facility] Center - Megan Estes - 04/21/2019 2:45 PM PDTAMR 303. ETA 10. 54 yoM BP 91/53HR was 180. Converted to 70 enrte. RR 14. ransfer Note - Popes cu, Richard, PA-C - 04/21/2019 2:04 PM PDTDr. Karen, Cardiology 54 y/o M pre-liver transplant with dobutamine stress test done as outpatient. Developed hyp otension for about 5 min before resolving with carotid massage. Prior to leaving clinic, ano ther episode occurred. Coming in by ambulance. Richard Thorpe PA-C [facility] Emergency Department o[facility] [place] - Megan Holman - 04/21/2019 2:03 PM PDTConnected ref to GUMARO Cabrera (ed obs) C/o tachycardia documented in this encounter Plan of Treatment +--------+ + + + + | Date | Type | Specialty | Care Team | Description | +--------+ + + + + | 08/08/ | Telephone-S | Nephrology | Angélica Chao, | | | 2019 | [place] | | [address] | | | | | | [address] | | | | | | [place], [place] | | | | | | [address] | | | | | | [phone] | | | | | | | | +--------+ + + + + | 09/27/ | Telephone-S | Liver Transplant | Vimal Crowe MD | | | 2019 | [place] | | [address] | | | | | | [address], | | | | | | [place] [address] | | | | | | [phone] | | | | | | | [...] [address] | | | | | | [place], [place] | | | | | | [address] | | | | | | [phone] | | | | | | | | +--------+ + + + + + + +--------+ + + | Name | Type | Priori | Associated Diagnoses | Order Schedule | | | | ty | | | + + +--------+ + + | DIFFERENTIAL, ADD ON | Lab - | Routin | | 04/22/2019 until | | | [facility] | e | | discontinued, 1 [...] | + +--------+ + + + | MR CARDIAC | Routin | 04/24/2019 | | Results for this | | COMPREHENSIVE W/O | e | 5:48 PM | | procedure are in the | | CONTRAST | | PDT | | results section. | + +--------+ + + + | CBC (HEMOGRAM) ONLY | Routin | 04/24/2019 | | Results for this | | | e | 4:21 AM | | procedure are in the | | | | PDT | | results section. | + +--------+ + + + | COMPLETE METABOLIC | Routin | 04/24/2019 | | Results for this | | SET | e | 4:21 AM | | procedure are in the | | (NA,K,CL,CO2,BUN,CRE | | PDT | | results section. | | AT,GLUC,CA,AST,ALT,B | | | | | | KEV TOTAL,ALK | | | | | | PHOS,ALB,PROT TOTAL) | | | | | + +--------+ + + + | CBC ONLY | Routin | 04/24/2019 | | Results for this | | | e | 4:21 AM | | procedure are in the | | | | PDT | | results section. | + +--------+ + + + | COAGULOPATHY PANEL | Routin | 04/24/2019 | | Results for this | | (INR,APTT,FIBRINOGEN | e | 4:21 AM | | procedure are in the | | ) | | PDT | | results section. | + +--------+ + + + | CARDIOLOGY | | 04/24/2019 | | Results for this | | | | 12:00 AM | | procedure are in the | | | | PDT | | results section. | + +--------+ + + + | ZINC, SERUM | Routin | 04/23/2019 | | Results for this | | | e | 4:28 PM | | procedure are in the | | | | PDT | | results section. | + +--------+ + + + | METHYLMALONIC ACID, | Routin | 04/23/2019 | | Results for this | | SERUM | e | 4:28 PM | | procedure are in the | | | | PDT | | results section. | + +--------+ + + + | HIV AB/AG SCREENING | Routin | 04/23/2019 | | Results for this | | W/REFLEX TO CONFIRM | e | 4:28 PM | | procedure are in the | | | | PDT | | results section. | + +--------+ + + + | VITAMIN B-12 | Routin | 04/23/2019 | | Results for this | | | e | 4:28 PM | | procedure are in the | | | | PDT | | results section. | + +--------+ + + + | COPPER, SERUM | Routin | 04/23/2019 | | Results for this | | | e | 4:28 PM | | procedure are in the | | | | PDT | | results section. | + +--------+ + + + | CBC (HEMOGRAM) ONLY | Routin | 04/23/2019 | | Results for this | | | e | 6:38 AM | | procedure are in the | | | | PDT | | results section. | + +--------+ + + + | COMPLETE METABOLIC | Routin | 04/23/2019 | | Results for this | | SET | e | 6:38 AM | | procedure are in the | | (NA,K,CL,CO2,BUN,CRE | | PDT | | results section. | | AT,GLUC,CA,AST,ALT,B | | | | | | KEV TOTAL,ALK | | | | | | PHOS,ALB,PROT TOTAL) | | | | | + +--------+ + + + | CBC ONLY | Routin | 04/23/2019 | | Results for this | | | e | 6:38 AM | | procedure are in the | | | | PDT | | results section. | + +--------+ + + + | COAGULOPATHY PANEL | Routin | 04/23/2019 | | Results for this | | (INR,APTT,FIBRINOGEN | e | 6:38 AM | | procedure are in the | | ) | | PDT | | results section. | + +--------+ + + + | CARDIOLOGY | | 04/23/2019 | | Results for this | | | | 12:00 AM | | procedure are in the | | | | PDT | | results section. | + +--------+ + + + | CARDIOLOGY | | 04/23/2019 | | Results for this | | | | 12:00 AM | | procedure are in the | | | | PDT | | results section. | + +--------+ + + + | CBC (HEMOGRAM) ONLY | Routin | 04/22/2019 | | Results for this | | | e | 6:28 PM | | procedure are in the | | | | PDT | | results section. | + +--------+ + + + | CBC ONLY | Routin | 04/22/2019 | | Results for this | | | e | 6:28 PM | | procedure are in the | | | | PDT | | results section. | + +--------+ + + + | TRANSFUSE RED CELLS, | Routin | 04/22/2019 | | | | LEUKOREDUCED | e | 5:47 PM | | | | | | PDT | | | + +--------+ + + + | URINE, MICROSCOPIC | Routin | 04/22/2019 | | Results for this | | EXAM | e | 4:54 PM | | procedure are in the | | | | PDT | | results section. | + +--------+ + + + | MRI ABDOMEN WWO | Routin | 04/22/2019 | | Results for this | | CONTRAST | e | 2:36 PM | | procedure are in the | | | | PDT | | results section. | + +--------+ + + + | TRANSFUSE RED CELLS, | Routin | 04/22/2019 | | | | LEUKOREDUCED | e | 1:07 PM | | | | | | PDT | | | + +--------+ + + + | PHOSPHATIDYLETHANOL | Routin | 04/22/2019 | | Results for this | | (PETH) | e | 10:49 AM | | procedure are in the | | | | PDT | | results section. | + +--------+ + + + | PRODUCT - RED CELLS | Routin | 04/22/2019 | | Results for this | | LEUKOREDUCED | e | 9:57 AM | | procedure are in the | | | | PDT | | results section. | + +--------+ + + + | PRODUCT - RED CELLS | Routin | 04/22/2019 | | Results for this | | LEUKOREDUCED | e | 9:57 AM | | procedure are in the | | | | PDT | | results section. | + +--------+ + + + | C3 EMIL | Routin | 04/22/2019 | | Results for this | | | e | 9:26 AM | | procedure are in the | | | | PDT | | results section. | + +--------+ + + + | EMIL IGG | Routin | 04/22/2019 | | Results for this | | | e | 9:26 AM | | procedure are in the | | | | PDT | | results section. | + +--------+ + + + | CBC (HEMOGRAM) ONLY | Urgent | 04/22/2019 | | Results for this | | | | 9:26 AM | | procedure are in the | | | | PDT | | results section. | + +--------+ + + + | CBC ONLY | Urgent | 04/22/2019 | | Results for this | | | | 9:26 AM | | procedure are in the | | | | PDT | | results section. | + +--------+ + + + | MARTITA BURGOS | Routin | 04/22/2019 | | Results for this | | | e | 9:26 AM | | procedure are in the | | | | PDT | | results section. | + +--------+ + + + | PRODUCT - RED CELLS | Routin | 04/22/2019 | | Results for this | | LEUKOREDUCED | e | 5:45 AM | | procedure are in the | | | | PDT | | results section. | + +--------+ + + + | DIFFERENTIAL, ADD ON | Routin | 04/22/2019 | | Results for this | | | e | 4:24 AM | | procedure are in the | | | | PDT | | results section. | + +--------+ + + + | DIFFERENTIAL, ADD ON | Routin | 04/22/2019 | | Results for this | | | e | 4:24 AM | | procedure are in the | | | | PDT | | results section. | + +--------+ + + + | CBC (HEMOGRAM) ONLY | Urgent | 04/22/2019 | | Results for this | | | | 4:24 AM | | procedure are in the | | | | PDT | | results section. | + +--------+ + + + | INR | Urgent | 04/22/2019 | | Results for this | | | | 4:24 AM | | procedure are in the | | | | PDT | | results section. | + +--------+ + + + | COMPLETE METABOLIC | Urgent | 04/22/2019 | | Results for this | | SET | | 4:24 AM | | procedure are in the | | (NA,K,CL,CO2,BUN,CRE | | PDT | | results section. | | AT,GLUC,CA,AST,ALT,B | | | | | | KEV TOTAL,ALK | | | | | | PHOS,ALB,PROT TOTAL) | | | | | + +--------+ + + + | CBC ONLY | Urgent | 04/22/2019 | | Results for this | | | | 4:24 AM | | procedure are in the | | | | PDT | | results section. | + +--------+ + + + | RETICULOCYTE COUNT, | Routin | 04/22/2019 | | Results for this | | BLOOD | e | 4:24 AM | | procedure are in the | | | | PDT | | results section. | + +--------+ + + + | BILIRUBIN DIRECT | Routin | 04/22/2019 | | Results for this | | | e | 4:24 AM | | procedure are in the | | | | PDT | | results section. | + +--------+ + + + | HAPTOGLOBIN | Routin | 04/22/2019 | | Results for this | | | e | 4:24 AM | | procedure are in the | | | | PDT | | results section. | + +--------+ + + + | MAGNESIUM, PLASMA | Urgent | 04/22/2019 | | Results for this | | | | 4:24 AM | | procedure are in the | | | | PDT | | results section. | + +--------+ + + + | LDH TOTAL, PLASMA | Routin | 04/22/2019 | | Results for this | | | e | 4:24 AM | | procedure are in the | | | | PDT | | results section. | + +--------+ + + + | CARDIOLOGY | | 04/22/2019 | | Results for this | | | | 12:00 AM | | procedure are in the | | | | PDT | | results section. | + +--------+ + + + | CARDIOLOGY | | 04/22/2019 | | Results for this | | | | 12:00 AM | | procedure are in the | | | | PDT | | results section. | + +--------+ + + + | X-RAY CHEST 2 VIEW | Urgent | 04/21/2019 | | Results for this | | | | 4:27 PM | | procedure are in the | | | | PDT | | results section. | + +--------+ + + + | 12 LEAD ECG | Routin | 04/21/2019 | | Results for this | | | e | 4:13 PM | | procedure are in the | | | | PDT | | results section. | + +--------+ + + + | TROPONIN, POC | Urgent | 04/21/2019 | SVT | Results for this | | | | 3:12 PM | (supraventricular | procedure are in the | | | | PDT | tachycardia) (HCC) | results section. | + +--------+ + + + | CBC AND AUTO DIFF | Urgent | 04/21/2019 | | Results for this | | | | 3:09 PM | | procedure are in the | | | | PDT | | results section. | + +--------+ + + + | INR | Urgent | 04/21/2019 | | Results for this | | | | 3:09 PM | | procedure are in the | | | | PDT | | results section. | + +--------+ + + + | CBC, WITH | Urgent | 04/21/2019 | | Results for this | | DIFFERENTIAL | | 3:09 PM | | procedure are in the | | | | PDT | | results section. | + +--------+ + + + | COMPLETE METABOLIC | Urgent | 04/21/2019 | | Results for this | | SET | | 3:09 PM | | procedure are in the | | (NA,K,CL,CO2,BUN,CRE | | PDT | | results section. | | AT,GLUC,CA,AST,ALT,B | | | | | | KEV TOTAL,ALK | | | | | | PHOS,ALB,PROT TOTAL) | | | | | + +--------+ + + + | APTT (ACT. PART. | Urgent | 04/21/2019 | | Results for this | | THROMBO TIME) | | 3:09 PM | | procedure are in the | | | | PDT | | results section. | + +--------+ + + + | MAGNESIUM, PLASMA | Urgent | 04/21/2019 | | Results for this | | | | 3:09 PM | | procedure are in the | | | | PDT | | results section. | + +--------+ + + + | TROPONIN I, PLASMA | Urgent | 04/21/2019 | | Results for this | | | | 3:09 PM | | procedure are in the | | | | PDT | | results section. | + +--------+ + + + | 12 LEAD ECG | Routin | 04/21/2019 | | Results for this | | | e | 2:13 PM | | procedure are in the | | | | PDT | | results section. | + +--------+ + + + | CARDIOLOGY | | 04/21/2019 | | Results for this | | | | 12:00 AM | | procedure are in the | | | | PDT | | results section. | + +--------+ + + + | CARDIOLOGY | | 04/21/2019 | | Results for this | | | | 12:00 AM | | procedure are in the | | | | PDT | | results section. | + +--------+ + + + | CARDIOLOGY | | 04/21/2019 | | Results for this | | | | 12:00 AM | | procedure are in the | | | | PDT | | results section. | + +--------+ + + + | CARDIOLOGY | | 04/21/2019 | | Results for this | | | | 12:00 AM | | procedure are in the | | | | PDT | | results section. | + +--------+ + + + documented in this encounter Results MR CARDIAC COMPREHENSIVE W/O CONTRAST (04/24/2019 5:48 PM PDT) + + | Specimen | + + | | + + + + + | Narrative | Performed At | + + + | Report ====== Elevator Tender: Gabriela Ybarra ([id number]) Fellow: Gabriela POST | | [place] ([id number]) Crematory Operator: Gabriela Ybarra ([id number]) Police Artist: | RADIOLOGY | | Gabriela Ybarra ([id number]) Viewer: Gabriela Ybarra ([id number]) Report | CARDIAC IMAGING | | Date: 28 Apr 2019, 11:47:52 PDT Patient ------- Patient: LULU | | | DOUG GILES | | | Acc #: [id number] Ethnicity: N Status: Final Report Report Number: | | | [id number] Gender: Male Birthdate: 1965 (54 yrs) Study Date: | | | Apr 2019 Study Description: CMR without flows without contrast | | | Referring Physician: KAREN Gavin Blood Pressure: 104 / 59 Heart | | | rate: 56 Height (cm): 152 Weight (kg): 86 BMI (kg/m ): 37 BSA | | | (m ): 1.9 (Mosteller Formula) Scanner Ward Helper: Solaria | | | Curio Scanner Model: [employer] Scanner Serial Number: [id number] | | | Scanner Software Platform: [id number] Modality: MR Indication | | | Name: Myocardial Iron Overload Protocol Name: Myocardial Iron | | | Overload Sequences: Cine; T2* Global LV Assessment | | | LVEDV: 278 ml (increased) [99 - 199] = 182.16 | | | ml/m (increased) [60 - 120] = 145.49 ml/m (increased) [53 - 97] | | | LVESV: 108 ml (increased) [17 - 69] = 71.15 ml/m (increased) [12 - 44] | | | = 56.83 ml/m (increased) [10 - 34] LVSV: 169 ml (increased) [68 - | | | 144] = 111.01 ml/m = 88.67 ml/m (increased) [37 - 69] LVEF: 61 % | | | (normal) [59 - 83] LVCO: 9.5 l/min = 5 l/min/m (Normal) [>= 2.5] | | | LV Mass: 140 g (normal) [74 - 166] = 91.87 g/m (normal) [47 - 93] = | | | 73.38 g/m (normal) [42 - 78] LVESWS: 46 10 N/m (increased) [< | | | 40] Method: SAX3D Stack Global RV Assessment | | | RVEDV: 307 ml (increased) [125 - 237] = 201.51 ml/m (increased) [73 - | | | 141] = 160.95 ml/m (increased) [67 - 111] RVESV: 146 ml (increased) | | | [37 - 105] = 95.6 ml/m (increased) [22 - 66] = 76.35 ml/m | | | (increased) [20 - 48] RVSV: 161 ml (increased) [74 - 146] = 105.92 | | | ml/m = 84.6 ml/m (increased) [39 - 71] RVEF: 53 % (normal) [49 - | | | 73] RVCO: 9 l/min = 4.7 l/min/m T2* --- Slice: 1 Name: SAX | | | Myocardial Region, T2 Value ( Error): 13.53 ( 1.07) ms, RSquare: | | | [phone] Name: Septum, T2 Value ( Error): 12.34 ( 0.98) ms, | | | RSquare: 0.262770 Name: Other, T2 Value ( Error): 12.13 ( 0.87) | | | ms, RSquare: 0.94318 Name: Other, T2 Value ( Error): 2.81 ( 0.52) | | | ms, RSquare: 0.549571 Name: Other, T2 Value ( Error): 3.07 ( 0.78) | | | ms, RSquare: 0.941816 Slice: 2 Name: SAX Myocardial Region, T2 | | | Value ( Error): 14.56 ( 1.38) ms, RSquare: 0.326185 Name: Septum, | | | T2 Value ( Error): 11.8 ( 0.98) ms, RSquare: 0.921132 Name: Other, | | | T2 Value ( Error): 7.69 ( 0.66) ms, RSquare: 0.178784 Name: | | | Other, T2 Value ( Error): 1.76 ( 0.46) ms, RSquare: 0.37757 Name: | | | Other, T2 Value ( Error): 2.63 ( 0.36) ms, RSquare: 0.081947 | | | Findings -------- LEFT VENTRICLE The end diastolic left ventricular | | | wall thickness is normal. The left ventricular cavity is mildly | | | increased (LV EDV/BSA = 145.49ml/m2). LV mass is normal (LV | | | mass/BSA = 73.38g/m2). LV WALL MOTION The global left ventricular | | | systolic function is normal (EF = 61%). There are no regional wall | | | motion abnormalities of the left ventricle. RIGHT VENTRICLE The | | | right ventricular cavity is mildly increased (RV EDV/BSA = | | | 160.95ml/m2). RV WALL MOTION The global right ventricular systolic | | | function is normal (EF = 53%). There are no regional wall motion | | | abnormalities of the right ventricle. ATRIA The atria are normal in | | | size. VALVES All valves appear morphologically normal. There is no | | | significant regurgitation. PERICARDIUM The pericardial contour is | | | normal. No pericardial effusion is present. DELAYED ENHANCEMENT | | | Delayed hyperenhancement not assessed. T2* MAPPING The T2* decay of | | | the left ventriuclar myocardium is between 7.7-12.3 ms which is below | | | 20 ms and consistent with iron deposition. Values above 20 ms are | | | considered normal without evidence of myocardial iron deposition. The | | | T2* decay of the liver is between 1.76-3.1 ms which is below 6.3 ms | | | and consistent with iron deposition. Values above 6.3 ms are | | | considered normal without evidence of hepatic iron deposition. | | | NON-CARDIAC FINDINGS There is evidence of iron depostion in the liver | | | which also appears mildly cirrhotic. The spleen is enlarged. Several | | | chronic appearing mild compression deformities noted in the spine. | | | Summary ------- 1. Normal left ventricular systolic function and | | | mildly increased size. 2. Normal right ventricular systolic functio | | | and mildly increased size. 3. No significant valvular disease. 4. | | | Evidence for myocardial iron overload with prognostic relevance. The | | | T2* decay of the left ventriuclar myocardium is between 7.7-12.3 ms | | | which is below 20 ms and consistent with iron deposition. Values above | | | 20 ms are considered normal without evidence of myocardial iron | | | deposition. The T2* decay of the liver is between 1.76-3.1 ms which | | | is below 6.3 ms and consistent with iron deposition. Values above 6.3 | | | ms are considered normal without evidence of hepatic iron deposition. | | | 5. Cirrhotic appearance of the liver with enlarged spleen suggestive | | | of sequelae of portal hypertension. I have personally reviewed | | | the images and, if necessary, edited the report. I agree with the | | | report as now presented. | | + + + + + | Procedure Note | + + | Service Account, Radiant Res In Interface - 04/28/2019 11:49 AM PDT | | Report======Elevator Tender: Gabriela Ybarra ([id number])Fellow: Gabriela Ybarra ([phone])Crematory Operator: | | Gabriela Ybarra ([phone])Police Artist: Gabriela Ybarra ([phone])Viewer: Gabriela Ybarra | | ([phone])Report Date: 28 Apr 2019, 11:47:52 PDTPatient-------Patient: DOUG DURAN | | [facility] Record Number: [id number] ID: [id number] #: [id number]: | | NStatus: Final ReportReport Number: [id number]: MaleBirthdate: 1965 (54 yrs)Study | | Date: 24 Apr 2019Study Description: CMR without flows without contrastReferring | | Physician: KAREN GREEN WBlood Pressure: 104 / 59Heart rate: 56Height (cm): 152Weight | | (kg): 86BMI (kg/m ): 37BSA (m ): 1.9 (Mosteller Formula)Scanner Ward Helper: Solaria | | [employer] Model: [employer] Serial Number: [id number] Software Platform: | | [id number]: MRIndication Name: Myocardial Iron OverloadProtocol Name: | | Myocardial Iron OverloadSequences: Cine; T2*Global LV | | Assessment LVEDV: 278 ml (increased) [99 - 199] = 182.16 ml/m | | (increased) [60 - 120] = 145.49 ml/m (increased) [53 - 97]LVESV: 108 ml (increased) | | [17 - 69] = 71.15 ml/m (increased) [12 - 44] = 56.83 ml/m (increased) [10 - 34]LVSV: | | 169 ml (increased) [68 - 144] = 111.01 ml/m = 88.67 ml/m (increased) [37 - 69]LVEF: | | 61 % (normal) [59 - 83]LVCO: 9.5 l/min = 5 l/min/m (Normal) [>= 2.5]LV Mass: 140 g | | (normal) [74 - 166] = 91.87 g/m (normal) [47 - 93] = 73.38 g/m (normal) [42 - | | 78]LVESWS: 46 10 N/m (increased) [< 40]Method: SAX3D StackGlobal RV | | Assessment RVEDV: 307 ml (increased) [125 - 237] = 201.51 ml/m | | (increased) [73 - 141] = 160.95 ml/m (increased) [67 - 111]RVESV: 146 ml (increased) | | [37 - 105] = 95.6 ml/m (increased) [22 - 66] = 76.35 ml/m (increased) [20 - 48]RVSV: | | 161 ml (increased) [74 - 146] = 105.92 ml/m = 84.6 ml/m (increased) [39 - 71]RVEF: 53 | | % (normal) [49 - 73]RVCO: 9 l/min = 4.7 l/min/m T2*---Slice: 1Name: SAX Myocardial | | Region, T2 Value ( Error): 13.53 ( 1.07) ms, RSquare: 0.611210Sqhn: Septum, T2 Value | | ( Error): 12.34 ( 0.98) ms, RSquare: 0.462530Sqll: Other, T2 Value ( Error): 12.13 | | ( 0.87) ms, RSquare: 0.30482Icmd: Other, T2 Value ( Error): 2.81 ( 0.52) ms, | | RSquare: 0.084360Vkcb: Other, T2 Value ( Error): 3.07 ( 0.78) ms, RSquare: | | 0.178925Rmaus: 2Name: SAX Myocardial Region, T2 Value ( Error): 14.56 ( 1.38) ms, | | RSquare: 0.691157Eamq: Septum, T2 Value ( Error): 11.8 ( 0.98) ms, RSquare: | | 0.752142Mete: Other, T2 Value ( Error): 7.69 ( 0.66) ms, RSquare: 0.034565Jfvf: | | Other, T2 Value ( Error): 1.76 ( 0.46) ms, RSquare: 0.58975Dqwk: Other, T2 Value | | ( Error): 2.63 ( 0.36) ms, RSquare: 0.773601Xclwdlce--------RPUX VENTRICLEThe end | | diastolic left ventricular wall thickness is normal. The left ventricular cavity is | | mildly increased (LV EDV/BSA = 145.49ml/m2).LV mass is normal (LV mass/BSA = | | 73.38g/m2).LV WALL MOTIONThe global left ventricular systolic function is normal (EF = | | 61%). There are no regional wall motion abnormalities of the left ventricle.RIGHT | | VENTRICLEThe right ventricular cavity is mildly increased (RV EDV/BSA = | | 160.95ml/m2).RV WALL MOTIONThe global right ventricular systolic function is normal (EF | | = 53%). There are no regional wall motion abnormalities of the right ventricle.ATRIAThe | | atria are normal in size.VALVESAll valves appear morphologically normal. There is no | | significant regurgitation.PERICARDIUMThe pericardial contour is normal. No pericardial | | effusion is present.DELAYED ENHANCEMENTDelayed hyperenhancement not assessed.T2* | | MAPPINGThe T2* decay of the left ventriuclar myocardium is between 7.7-12.3 ms which is | | below 20 ms and consistent with iron deposition. Values above 20 ms are considered | | normal without evidence of myocardial iron deposition.The T2* decay of the liver is | | between 1.76-3.1 ms which is below 6.3 ms and consistent with iron deposition. Values | | above 6.3 ms are considered normal without evidence of hepatic iron | | deposition.NON-CARDIAC FINDINGSThere is evidence of iron depostion in the liver which | | also appears mildly cirrhotic. The spleen is enlarged. Several chronic appearing mild | | compression deformities noted in the spine.Summary-------1. Normal left ventricular | | systolic function and mildly increased size.2. Normal right ventricular systolic functio | | and mildly increased size.3. No significant valvular disease.4. Evidence for myocardial | | iron overload with prognostic relevance. The T2* decay of the left ventriuclar | | myocardium is between 7.7-12.3 ms which is below 20 ms and consistent with iron | | deposition. Values above 20 ms are considered normal without evidence of myocardial iron | | deposition.The T2* decay of the liver is between 1.76-3.1 ms which is below 6.3 ms and | | consistent with iron deposition. Values above 6.3 ms are considered normal without | | evidence of hepatic iron deposition.5. Cirrhotic appearance of the liver with enlarged | | spleen suggestive of sequelae of portal hypertension.I have personally reviewed the | | images and, if necessary, edited the report. I agree with the report as now presented. | |Slice: 2 | |Name: SAX Myocardial Region, T2 Value ( Error): 14.56 ( 1.38) ms, RSquare: 0.720079 | |Name: Septum, T2 Value ( Error): 11.8 ( 0.98) ms, RSquare: 0.232341 | |Name: Other, T2 Value ( Error): 7.69 ( 0.66) ms, RSquare: 0.341045 | |Name: Other, T2 Value ( Error): 1.76 ( 0.46) ms, RSquare: 0.80854 | |Name: Other, T2 Value ( Error): 2.63 ( 0.36) ms, RSquare: 0.762608 | |Findings | |-------- | |LEFT VENTRICLE | |The end diastolic left ventricular wall thickness is normal. The left ventricular cavity i s mildly increased (LV EDV/BSA = 145.49ml/m2). | |LV mass is normal (LV mass/BSA = 73.38g/m2). | |LV WALL MOTION | |The global left ventricular systolic function is normal (EF = 61%). There are no regional w all motion abnormalities of the left ventricle. | |RIGHT VENTRICLE | |The right ventricular cavity is mildly increased (RV EDV/BSA = 160.95ml/m2). | |RV WALL MOTION | |The global right ventricular systolic function is normal (EF = 53%). There are no regional wall motion abnormalities of the right ventricle. | |ATRIA | |The atria are normal in size. | |VALVES | |All valves appear morphologically normal. There is no significant regurgitation. | |PERICARDIUM | |The pericardial contour is normal. No pericardial effusion is present. | |DELAYED ENHANCEMENT | |Delayed hyperenhancement not assessed. | |T2* MAPPING | |The T2* decay of the left ventriuclar myocardium is between 7.7-12.3 ms which is below 20 m s and consistent with iron deposition. Values above 20 ms are considered normal without evid ence of myocardial iron deposition. | |The T2* decay of the liver is between 1.76-3.1 ms which is below 6.3 ms and consistent with iron deposition. Values above 6.3 ms are considered normal without evidence of hepatic iron deposition. | |NON-CARDIAC FINDINGS | |There is evidence of iron depostion in the liver which also appears mildly cirrhotic. The s pleen is enlarged. Several chronic appearing mild compression deformities noted in the spine . | |Summary | |------- | |1. Normal left ventricular systolic function and mildly increased size. | |2. Normal right ventricular systolic functio and mildly increased size. | |3. No significant valvular disease. | |4. Evidence for myocardial iron overload with prognostic relevance. The T2* decay of the le ft ventriuclar myocardium is between 7.7-12.3 ms which is below 20 ms and consistent with ir on deposition. Values above 20 ms are | |considered normal without evidence of myocardial iron deposition. | |The T2* decay of the liver is between 1.76-3.1 ms which is below 6.3 ms and consistent with iron deposition. Values above 6.3 ms are considered normal without evidence of hepatic iron deposition. | |5. Cirrhotic appearance of the liver with enlarged spleen suggestive of sequelae of portal hypertension. | | | | | |I have personally reviewed the images and, if necessary, edited the report. I agree with t he report as now presented. | + + + +---------+ + + | Performing | Address | City/State/Zipcode | Phone Number | | Organization | | | | + +---------+ + + | [facility] | | | | | CARDIAC IMAGING | | | | + +---------+ + + CBC (HEMOGRAM) ONLY (04/24/2019 4:21 AM PDT) + + + + + + | Component | Value | Ref Range | Performed | Pathologist | | | | | At | Signature | + + + + + + | WHITE CELL | 6.57 | 3.50 - 10.80 | [facility] | | | COUNT | | K/cu mm | LABORATORY | | | | | | SERVICES, | | | | | | CORE | | + + + + + + | RED CELL | 2.35 (L) | 4.50 - 6.00 | [facility] [...] + + + + | MCV | 100.0 | 80.0 - 100.0 fL | [facility] | | | | | | LABORATORY | | | | | | SERVICES, | | | | | | CORE | | + + + + + + | MCHC | 36.2 (H) | 32.0 - 36.0 | [facility] | | | | | g/dL | LABORATORY | | | | | | SERVICES, | | | | | | CORE | | + + + + + + | RDW SD | 54.6 (H) | 35.1 - 46.3 fL | [...] [facility] | [address] | [place] [address] | | | SERVICES, CORE | [address] | | | + + + + + COMPLETE METABOLIC SET (NA,K,CL,CO2,BUN,CREAT,GLUC,CA,AST,ALT,BILI TOTAL,ALK PHOS,ALB,PROT TOTAL) (04/24/2019 4:21 AM PDT) + +---------+ + + + | Component | Value | Ref Range | Performed | Pathologist | | | | | At | Signature | + +---------+ + + + | GLUCOSE, | 115 (H) | 70 - 99 mg/dL | [...] | | | LABORATORY | | | [facility] | | | SERVICES, | | [...] +---------+ + + + | POTASSIUM, | 4.6 | 3.4 - 5.0 | [facility] | | | PLASMA | | mmol/L | LABORATORY | | | (LAB) | | | SERVICES, | | | | | | CORE | | + +---------+ + + + | CHLORIDE, | 99 [...] +---------+ + + + | CALCIUM(ALB | 9.8 | 8.6 - 10.2 | [facility] | | | CORRECTED) | | mg/dL | LABORATORY | | | | | | SERVICES, | | | | | | CORE | | + +---------+ + + + | BILIRUBIN | 9.9 (H) | 0.3 - 1.2 mg/dL | [facility] | | | TOTAL | | | LABORATORY | | | | | | SERVICES, | | | | | | CORE | | + +---------+ + + + | TOTAL | 6.7 | 6.4 - 8.2 g/dL | [facility] | | | PROTEIN, | | | LABORATORY | | | PLASMA | | | SERVICES, | | | (LAB) | | | CORE | | + +---------+ + + + | ALBUMIN, | 2.5 (L) | 3.5 - 4.7 g/dL | [facility] | | | PLASMA | | | LABORATORY | | | (LAB) | | | SERVICES, | | | | | | CORE | | + +---------+ + + + | ALK PHOS | 151 (H) | 53 - 128 U/L | [facility] | | | | | | LABORATORY | | | | | | SERVICES, | | | | | | CORE | | + +---------+ + + + | AST(SGOT) | 69 [...] MDRD equation recommended by the National | [facility] | | Kidney Disease Education Program. Estimated [...] | + + + + + | [facility] | [address] | [place] [address] | | | SERVICES, CORE | [address] | | | + + + + + COAGULOPATHY PANEL (INR,APTT,FIBRINOGEN) (04/24/2019 4:21 AM PDT) + + + + + + | Component | Value | Ref Range | Performed | Pathologist | | | | | At | Signature | + + + + + + | INR | 2.73 (H) | 0.90 - 1.20 INR | [facility] | | | | | | LABORATORY | | | | | | SERVICES, | | | | | | CORE | | + + + + + + | APTT | 105.6 (H) | 26.0 - 36.0 | [facility] | | | | | seconds | LABORATORY | | | | | | SERVICES, | | | | | | CORE | | + + + + + + | FIBRINOGEN | 195 | 150 - 450 mg/dL | [facility] [...] | + + + + + | [facility] | [address] | [place] [address] | | | CLAUDIA, ARTIS | [address] | | | + + + + + CARDIOLOGY (04/24/2019 12:00 AM PDT) + + + | Narrative | Performed At | + + + | | | + + + HIV-1,2 AB/HIV-1 P24 AG SCRJr (04/23/2019 4:28 PM PDT) + + + + + [...] by | | | | | | [employer],[address] | | | | | | [address] [facility] [place] [facility],[place] | | | | | | [address] | | | | | | [phone].[employer]. | | | | | | Harley [...] [facility] | [address] | [place], [place] | | | UNIV PTH - [facility] | | [address] | | + + + + + VITAMIN B-12 (04/23/2019 4:28 PM PDT) + + + + + + | Component | Value | Ref Range | Performed | Pathologist | | | | | At | Signature | + + + + + + | VITAMIN B12 | 3,205 (H) | 193 - 986 pg/mL | [facility] | | | | [...] [facility] | [address] | [place] [address] | | | SERVICES, CORE | [address] | | | + + + + + ZINC, SERUM (04/23/2019 4:28 PM PDT) + + + + + + | Component | Value | Ref Range | Performed | Pathologist | | | | | At | Signature | + + + + + + | ZINC SERUM | 31.0 (L)Comment: | 60.0 - 120.0 | [facility] [...] | | | | | determined by [facility] | | | | | | Laboratories. See | | | | | | Compliance Statement B: | | | | | | [employer]/CSPerformed | | | | | | by [employer],[address] | | | | | | [address], [facility] [place] [facility],[place] | | | | | | [address] | | | | | | [phone].[employer]. | | | | | | com, Harley Coates MD, | | | | | | Lab. Director | | | | + + + + + + + + | Specimen | + + | Blood - Blood | | (substance) | + + + + + + + | Performing | Address | City/[facility] | Phone Number | | Organization | | | | + + + + + | [facility] | [address] | [place], [place] | | | UN[facility] P[facility] - [facility] | | [address] | | + + + + + COPPER, SERUM (04/23/2019 4:28 PM PDT) + + + + + + | Component | Value | Ref Range | Performed | Pathologist | | | | | At | Signature | + + + + + + | COPPER | 72.8Comment: | 70.0 - 140.0 | [facility] | | | SERUM | INTERPRETIVE | ug/dL | REG UNIV | | | | INFORMATION: Copper, | | PTH - INTFC | | | | Serum or Plasma Elevated | | | | [...] | | | | | | serum/plasma copper, | | | | | | confirmation with a | | | | | | second specimen | | | | | | collected in a certified | | | | | | metal-free tube is | | | | | | recommended. Serum | | | | | | copper may be elevated | | | | | | with infection, | | | | | | inflammation, stress, | | | | | | and copper | | | | | | supplementation. In | | | | | | females, elevated copper | | | | | | may also be caused by | | | | | | oral contraceptives and | | | | | | | | | | | | (concentrations may be | | | | | | elevated up to 3 times | | | | | | normal during the third | | | | | | trimester). Test | | | | | | developed and | | | | | | characteristics | | | | | | determined by [facility] | | | | | | Laboratories. See | | | | | | Compliance Statement B: | | | | | | [employer]/CSPerformed | | | | | | by [employer],[address] | | | | | | [address] [facility] [place] | | | | | | [address] | | | | | | [phone].[employer]. | | | | | | comHarley [...] [facility] | [address] | [place], [place] | | | UN[facility] PTH - [facility] | | [address] | | + + + + + METHYLMALONIC ACID, SERUM (04/23/2019 4:28 PM PDT) + + + + + + | Component | Value | Ref Range | Performed | Pathologist | | | | | At | Signature | + + + + + + | METHYLMALON | 0.34Comment: | 0.00 - 0.40 | [facility] | | | IC ACID | INTERPRETIVE | umol/L | REG UNIV | | | | INFORMATION: MMA | | PTH - INTFC | | | | Serum/Plasma, | | | | | | | | | | | | Vitamin B12 Status | | | | | | Test developed and | | | | | | characteristics | | | | | | determined by [facility] | | | | | | Laboratories. See | | | | | | Compliance Statement B: | | | | | | [employer]/CSPerformed | | | | | | by [employer],[address] | | | | | | [facility] | | | | | | [address] | | | | | | [phone].[employer]. | | | | | | comHarley [...] [facility] | [address] | [place], [place] | | | UN[facility] P[facility] | | [address] | | + + + + + CBC (HEMOGRAM) ONLY (04/23/2019 6:38 AM PDT) + + + + + + | Component | Value | Ref Range | Performed | Pathologist | | | | | At | Signature | + + + + + + | WHITE CELL | 6.99 | 3.50 - 10.80 | [facility] | [...] + + + + | HEMOGLOBIN | 8.4 (L) | 13.5 - 17.5 [...] + + + + | MCV | 100.0 | 80.0 - 100.0 fL | [facility] | | | | | | LABORATORY | | | | | | SERVICES, | | | | | | CORE | | + + + + + + | MCHC | 36.5 (H) | 32.0 - 36.0 | [facility] | [...] + + + + | PLATELET | 50 (L) | 150 - 400 K/cu | [...] [facility] | [address] | [place] [address] | | | SERVICES, CORE | [address] | | | + + + + + COMPLETE METABOLIC SET (NA,K,CL,CO2,BUN,CREAT,GLUC,CA,AST,ALT,BILI TOTAL,ALK PHOS,ALB,PROT TOTAL) (04/23/2019 6:38 AM PDT) + + + + + [...] | | | LABORATORY | | | [facility] | | | SERVICES, | | [...] + + + | ALK PHOS | 147 (H) | 53 - 128 U/L | [...] + + + | ALT (SGPT) | 41 | <=60 U/L | [facility] | | [...] MDRD equation recommended by the National | [facility] | | Kidney Disease Education Program. Estimated [...] | + + + + + | [facility] | [address] | [place] [address] | | | SERVICES, CORE | [address] | | | + + + + + COAGULOPATHY PANEL (INR,APTT,FIBRINOGEN) (04/23/2019 6:38 AM PDT) + + + + + + | Component | Value | Ref Range | Performed | Pathologist | | | | | At | Signature | + + + + + + | INR | 2.94 (H) | 0.90 - 1.20 INR | [facility] | | | | | | LABORATORY | | | | | | SERVICES, | | | | | | CORE | | + + + + + + | APTT | 69.8 (H) | 26.0 - 36.0 | [facility] | | | | | seconds | LABORATORY | | | | | | SERVICES, | | | | | | CORE | | + + + + + + | FIBRINOGEN | 191 | 150 - 450 mg/dL | [facility] [...] | + + + + + | [facility] | [address] | [place] [address] | | | ARTIS TAYLOR | [address] | | | + + + + + CARDIOLOGY (04/23/2019 12:00 AM PDT) + + + | Narrative | Performed At | + + + | | | + + + CARDIOLOGY (04/23/2019 12:00 AM PDT) + + + | Narrative | Performed At | + + + | | | + + + CBC (HEMOGRAM) ONLY (04/22/2019 6:28 PM PDT) + + + + + + | Component | Value | Ref Range | Performed | Pathologist | | | | | At | Signature | + + + + + + | WHITE CELL | 7.57 | 3.50 - 10.80 | [facility] | [...] + + + + | HEMOGLOBIN | 9.7 (L) | 13.5 - 17.5 | [facility] | | | | | g/dL | LABORATORY | | | | | | SERVICES, | | | | | | CORE | | + + + + + + | HEMATOCRIT | 27.4 (L) | 41.0 - 53.0 % | [facility] | | | | | | LABORATORY | | | | | | SERVICES, | | | | | | CORE | | + + + + + + | MCV | 102.2 (H) | 80.0 - 100.0 fL | [facility] | | | | | | LABORATORY | | | | | | SERVICES, | | | | | | CORE | | + + + + + + | MCHC | 35.4 | 32.0 - 36.0 | [facility] | | | | | g/dL | LABORATORY | | | | | | SERVICES, | | | | | | CORE | | + + + + + + | RDW SD | 57.1 (H) | 35.1 - 46.3 fL | [facility] | | | | | | LABORATORY | | | | | | SERVICES, | | | | | | CORE | | + + + + + + | PLATELET | 62 (L) | 150 - 400 K/cu | [...] Performed At | + + + | Post transfusion | [facility] | | | LABORATORY | | | SERVICES, CORE | + + + + + + + + | Performing | Address | City/State/Zipcode | Phone Number | | Organization | | | | + + + + + | [facility] | [address] | [place] [address] | | | SERVICES, CORE | [address] | | | + + + + + URINE, MICROSCOPIC EXAM (04/22/2019 4:54 PM PDT) + +-------+ + + + | Component | Value | Ref Range | Performed | Pathologist | | | | | At | Signature | + +-------+ + + + | RED CELLS | 6 (H) | 0 - 3 /hpf | [...] | + + + + + | [facility] | [address] | [place] [address] | | | SERVICES, CORE | [address] | | | + + + + + MRI ABDOMEN WWO CONTRAST (04/22/2019 2:36 PM PDT) + + | Specimen | + + | | + + + + + | Narrative | Performed At | + + + | EXAM: Abdomen MRI without and with intravenous contrast. | [facility] | | HISTORY: Liver transplant candidate, eval for HCC, eval size & patency | RADIOLOGY VOICE | | of PV & SMV. COMPARISON: MRI 11/19/2018. TECHNIQUE: | RECOGNITION 2 | | Multiplanar MRI of the abdomen was performed without and with | | | gadolinium based intravenous contrast. FINDINGS: Motion | | | artifact on the majority of sequences limits evaluation. LIVER: | | | Cirrhotic morphology. Diffuse signal loss is seen on T1 and | | | T2-weighted images, most prominent along the hepatic veins. No | | | definite focal liver lesion identified. BILIARY: Multiple small | | | stones layer dependently within the gallbladder. No evidence of acute | | | cholecystitis. PANCREAS: Atrophic pancreas with diffuse signal loss | | | on T1 and T2-weighted images. SPLEEN: Stable splenomegaly | | | measuring up to 19.6 cm in craniocaudal dimension. ADRENALS: | | | Unremarkable. KIDNEYS: Reversed cortical medullary differentiation | | | bilaterally due to cortical hypointensity on T1 and T2-weighted | | | images. GI TRACT: Visualized portions are unremarkable. PERITONEUM: | | | No free air or fluid. LYMPH NODES: No lymphadenopathy. VESSELS: | | | The main portal vein is patent and measures up to 15 mm at the jb | | | hepatis. The SMV is patent and measures approximately 13 mm near the | | | splenic confluence. 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 BONES AND SOFT TISSUES: | | | Bilateral gynecomastia. IMPRESSION: 1. Cirrhosis with portal | | | hypertension. No definite focal liver lesion. 2. Extensive signal | | | loss on both T1 and T2-weighted images in the liver, pancreas, and | | | renal cortices suggestive of iron deposition as can be seen with | | | primary hemochromatosis. I have personally reviewed the images | | | and, if necessary, edited the report. I agree with the report as now | | | presented. Final signature: Ramana Franco MD 04/23/2019 7:20 | | | AM Preliminary: Lee Inman DO 04/22/2019 3:42 PM Dictation | | | initiated: Lee Inman DO 04/22/2019 2:52 PM | | + + + + + | Procedure Note | + + | Service Account, Radiant Res In Interface - 04/23/2019 7:21 AM PDT EXAM: Abdomen MRI | | without and with intravenous contrast. HISTORY: Liver transplant candidate, eval for | | HCC, eval size & patency of PV & SMV. COMPARISON: MRI 11/19/2018. TECHNIQUE: Multiplanar | | MRI of the abdomen was performed without and with gadolinium based intravenous | | contrast. FINDINGS: Motion artifact on the majority of sequences limits evaluation. | | LIVER: Cirrhotic morphology. Diffuse signal loss is seen on T1 and T2-weighted images, | | most prominent along the hepatic veins. No definite focal liver lesion identified. | | BILIARY: Multiple small stones layer dependently within the gallbladder. No evidence of | | acute cholecystitis.PANCREAS: Atrophic pancreas with diffuse signal loss on T1 and | | T2-weighted images. SPLEEN: Stable splenomegaly measuring up to 19.6 cm in craniocaudal | | dimension.ADRENALS: Unremarkable.KIDNEYS: Reversed cortical medullary differentiation | | bilaterally due to cortical hypointensity on T1 and T2-weighted images.GI TRACT: | | Visualized portions are unremarkable.PERITONEUM: No free air or fluid. LYMPH NODES: No | | lymphadenopathy.VESSELS: The main portal vein is patent and measures up to 15 mm at the | | jb hepatis. The SMV is patent and measures approximately 13 mm near the splenic | | confluence. 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 BONES AND SOFT TISSUES: Bilateral gynecomastia. IMPRESSION: 1. Cirrhosis | | with portal hypertension. No definite focal liver lesion. 2. Extensive signal loss on | | both T1 and T2-weighted images in the liver, pancreas, and renal cortices suggestive of | | iron deposition as can be seen with primary hemochromatosis. I have personally reviewed | | the images and, if necessary, edited the report. I agree with the report as now | | presented. Final signature: Ramana Franco MD 04/23/2019 7:20 AM Preliminary: Lee Leyva | | DO Henny 04/22/2019 3:42 PM Dictation initiated: Lee Inman DO 04/22/2019 2:52 PM | |LYMPH NODES: No lymphadenopathy. | |VESSELS: The main portal vein is patent and measures up to 15 mm at the jb hepatis. The SMV is patent and measures approximately 13 mm near the splenic confluence. Recanalized umbi lical vein with omental and gastric varices, similar to prior study. | | | |BONES AND SOFT TISSUES: Bilateral gynecomastia. | | | |IMPRESSION: | | | |1. Cirrhosis with portal hypertension. No definite focal liver lesion. | | | |2. Extensive signal loss on both T1 and T2-weighted images in the liver, pancreas, and willie l cortices suggestive of iron deposition as can be seen with primary hemochromatosis. | | | |I have personally reviewed the images and, if necessary, edited the report. I agree with e report as now presented. | | | |Final signature: Ramana Franco MD 04/23/2019 7:20 AM | |Preliminary: Lee Inman DO 04/22/2019 3:42 PM | |Dictation initiated: Lee Inman DO 04/22/2019 2:52 PM | + + + +---------+ + + | Performing | Address | City/State/Zipcode | Phone Number | | Organization | | | | + +---------+ + + | [facility] | | | | | VOICE RECOGNITION 2 | | | | + +---------+ + + PHOSPHATIDYLETHANOL (PETH) (04/22/2019 10:49 AM PDT) + + + + + + | Component | Value | Ref Range | Performed | Pathologist | | | | | At | Signature | + + + + + + | PHOSPHATIDY | NEGATIVEComment: | NEGATIVE ng/mL | [facility] | | | LETHANOL | Analyzed compound: PEth | | REG UNIV | | | (PETH) | 16:0/18:1.7-fedupywob-[id number] | | PTH - [facility] | | | | [id number]-phos | | | | | | phoethanol.Analysis [...] | | | | at: [facility] [address] | | | | | | [address] [facility] [place] | | | | | | [place] [address] | | | | + + + + + + + + | Specimen | + + | Blood - Blood | | (substance) | + + + + + + + | Performing | Address | City/State/Zipcode | Phone Number | | Organization | | | | + + + + + | [facility] | [address] | [place], [place] | | | UNIV [facility] | | [id number] | | + + + + + PRODUCT - RED CELLS LEUKOREDUCED (04/22/2019 9:57 AM PDT) + + + + + + | Component | Value | Ref Range | Performed | Pathologist | | | | | At | Signature | + + + + + + | PRODUCT | -1 RED BLOOD CELL | | [facility] | | | DESCRIPTION | ADENINE-SALINE ADDED | | LABORATORY | | | | LEUKOCYTE | | SERVICES, | | | | | | TRANSFUSION | | | | | | MEDICINE | | + + + + + + | PRODUCT | [id number] | | [facility] | | | UNIT [...] + + + + | EXPIRATION | [id number] | | [facility] | | | DATE [...] + + + + | BLOOD | [id number] | | [facility] | | | PRODUCT [...] [facility] | [address] | [place] [address] | | | SERVICES, | [address] | | | | TRANSFUSION MEDICINE | | | | + + + + + PRODUCT - RED CELLS LEUKOREDUCED (04/22/2019 9:57 AM PDT) + + + + + + | Component | Value | Ref Range | Performed | Pathologist | | | | | At | Signature | + + + + + + | PRODUCT | -1 RED BLOOD CELL | | [facility] | | | DESCRIPTION | ADENINE-SALINE ADDED | | LABORATORY | | | | LEUKOCYTE | | SERVICES, | | | | | | TRANSFUSION | | | | | | MEDICINE | | + + + + + + | PRODUCT | [id number] | | [facility] | | | UNIT [...] + + + + | EXPIRATION | [id number] | | [facility] | | | DATE [...] + + + + | BLOOD | [id number] | | [facility] | | | PRODUCT [...] [facility] | [address] | [place] [address] | | | SERVICES, | [address] | | | | TRANSFUSION MEDICINE | | | | + + + + + CBC (HEMOGRAM) ONLY (04/22/2019 9:26 AM PDT) + + + + + + | Component | Value | Ref Range | Performed | Pathologist | | | | | At | Signature | + + + + + + | WHITE CELL | 6.46 | 3.50 - 10.80 | [facility] | | | COUNT | | K/cu mm | LABORATORY | | | | | | SERVICES, | | | | | | CORE | | + + + + + + | RED CELL | 1.70 (L) | 4.50 - 6.00 | [facility] [...] + + + + | HEMATOCRIT | 18.0 (LL) | 41.0 - 53.0 % | [facility] | | | | | | LABORATORY | | | | | | SERVICES, | | | | | | CORE | | + + + + + + | MCV | 105.9 (H) | 80.0 - 100.0 fL | [facility] | | | | | | LABORATORY | | | | | | SERVICES, | | | | | | CORE | | + + + + + + | MCHC | 36.1 (H) | 32.0 - 36.0 | [facility] | | | | | g/dL | LABORATORY | | | | | | SERVICES, | | | | | | CORE | | + + + + + + | RDW SD | 45.6 | 35.1 - 46.3 fL | [facility] [...] [facility] | [address] | [place] [address] | | | SERVICESARTIS | [address] | | | + + + + + C3 EMIL (04/22/2019 9:26 AM PDT) + + + + + + | Component | Value | Ref Range | Performed | Pathologist | | | | | At | Signature | + + + + + + | EMIL C3 | Negative | | [facility] | | | | [...] [facility] | [address] | [place] [address] | | | SERVICES, | [address] | | | | TRANSFUSION MEDICINE | | | | + + + + + EMIL IGG (04/22/2019 9:26 AM PDT) + + + + + + | Component | Value | Ref Range | Performed | Pathologist | | | | | At | Signature | + + + + + + | AUBREY, IGG | Negative | | [facility] | | | | [...] [facility] | [address] | [place] [address] | | | SERVICES, | [address] | | | | TRANSFUSION MEDICINE | | | | + + + + + PRODUCT - RED CELLS LEUKOREDUCED (04/22/2019 5:45 AM PDT) + + + + + + | Component | Value | Ref Range | Performed | Pathologist | | | | | At | Signature | + + + + + + | PRODUCT | -1 RED BLOOD CELL | | [facility] | | | DESCRIPTION | ADENINE-SALINE ADDED | | LABORATORY | | | | LEUKOCYTE | | SERVICES, | | | | | | TRANSFUSION | | | | | | MEDICINE | | + + + + + + | PRODUCT | [id number] | | [facility] | | | UNIT [...] + + + + | EXPIRATION | [id number] | | [facility] | | | DATE [...] + + + + | BLOOD | [id number] | | [facility] | | | PRODUCT [...] | + + + + + | [facility] | [address] | [place] [address] | | | SERVICES, | [address] | | | | TRANSFUSION MEDICINE | | | | + + + + + MAK ADD ON (04/22/2019 4:24 AM PDT) + + + + + + | Component | Value | Ref Range | Performed | Pathologist | | | | | At | Signature | + + + + + + | NEUTROPHIL | 70.0 | 50.0 - 70.0 % | [facility] | | | % | | | LABORATORY | | | | | | SERVICES, | | | | | | CORE | | + + + + + + | LYMPHOCYTE | 18.6 | 18.0 - 42.0 % | [facility] | | | % | | | LABORATORY | | | | | | SERVICES, | | | | | | CORE | | + + + + + + | MONOCYTE % | 9.3 (H) | 3.5 - 9.0 % | [...] + + + + | NEUTROPHIL | 5.19 | 1.80 - 7.70 | [facility] | | | # | | K/cu mm | LABORATORY | | | | | | SERVICES, | | | | | | CORE | | + + + + + + | LYMPHOCYTE | 1.38 | 1.00 - 4.80 | [facility] | | | # | | K/cu mm | LABORATORY | | | | | | SERVICES, | | | | | | CORE | | + + + + + + | MONOCYTE # | 0.69 | 0.10 - 0.90 | [facility] | [...] | + + + + + | [facility] | [address] | [place] [address] | | | SERVICES, CORE | [address] | | | + + + + + RETICULOCYTE COUNT, BLOOD (04/22/2019 4:24 AM PDT) + + + + + + | Component | Value | Ref Range | Performed | Pathologist | | | | | At | Signature | + + + + + + | RETICULOCYT | 7.1 (H) | 0.5 - 1.5 % | [facility] | | | E COUNT | | | LABORATORY | | | | | | SERVICES, | | | | | | CORE | | + + + + + + | RETIC | 122.0 (H) | 10.0 - 90.0 | [facility] [...] + + | [facility] | [address] | [place] [address] | | | SERVICES, CORE | [address] | | | + + + + + BILIRUBIN DIRECT (04/22/2019 4:24 AM PDT) + +---------+ + + + | Component | Value | Ref Range | Performed | Pathologist | | | | | At | Signature | + +---------+ + + + | BILIRUBIN | 4.4 (H) | 0.0 - 0.3 mg/dL | [...] | + + + + + | [facility] | [address] | [place] [address] | | | SERVICES, CORE | [address] | | | + + + + + LDH TOTAL, PLASMA (04/22/2019 4:24 AM PDT) + +---------+ + + + | Component | Value | Ref Range | Performed | Pathologist | | | | | At | Signature | + +---------+ + + + | LD TOTAL, | 302 (H) | <=250 U/L | [facility] | [...] [facility] | [address] | [place] [address] | | | SERVICES, CORE | [address] | | | + + + + + HAPTOGLOBIN (04/22/2019 4:24 AM PDT) + +--------+ + + + [...] [facility] | [address] | [place] [address] | | | SERVICES, CORE | [address] | | | + + + + + CBC (HEMOGRAM) ONLY (04/22/2019 4:24 AM PDT) + + + + + + | Component | Value | Ref Range | Performed | Pathologist | | | | | At | Signature | + + + + + + | WHITE CELL | 7.30 | 3.50 - 10.80 | [facility] | | | COUNT | | K/cu mm | LABORATORY | | | | | | SERVICES, | | | | | | CORE | | + + + + + + | RED CELL | 1.72 (L) | 4.50 - 6.00 | [facility] [...] + + + + | HEMATOCRIT | 18.4 (L) | 41.0 - 53.0 % | [facility] | | | | | | LABORATORY | | | | | | SERVICES, | | | | | | CORE | | + + + + + + | MCV | 107.0 (H) | 80.0 - 100.0 fL | [...] + + + | RDW SD | 45.7 | 35.1 - 46.3 fL | [facility] | | | | | | LABORATORY | | | | | | SERVICES, | | | | | | CORE | | + + + + + + | PLATELET | 51 (L) | 150 - 400 K/cu | [...] [facility] | [address] | [place] [address] | | | SERVICES, CORE | [address] | | | + + + + + MAGNESIUM, PLASMA (04/22/2019 4:24 AM PDT) + +-------+ + + + [...] [facility] | [address] | [place] [address] | | | SERVICES, CORE | [address] | | | + + + + + INR (04/22/2019 4:24 AM PDT) + + + + + + | Component | Value | Ref Range | Performed | Pathologist | | | | | At | Signature | + + + + + + | INR | 3.26 (H) | 0.90 - 1.20 INR | [...] | [facility] | [address] | [place] [address] | | | SERVICES, [facility] | [address] | | | + + + + + COMPLETE METABOLIC SET (NA,K,CL,CO2,BUN,CREAT,GLUC,CA,AST,ALT,BILI TOTAL,ALK PHOS,ALB,PROT TOTAL) (04/22/2019 4:24 AM PDT) + + + + + + | Component | Value | Ref Range | Performed | Pathologist | | | | | At | Signature | + + + + + + | GLUCOSE, | 156 (H) | 70 - 99 [...] + + + + | CREATININE | 1.52 (H) | 0.70 - 1.30 | [facility] | | | PLASMA | | mg/dL | LABORATORY | | | (LAB) | | | SERVICES, | | | | | | CORE | | + + + + + + | EGFR | 58 (L) | >60 mL/min | [facility] | | | - | | | LABORATORY | | | [facility] | | | SERVICES, | | | | | | CORE | | + + + + + + | EGFR NON | 48 (L) | >60 mL/min | [...] + | ALBUMIN, | 2.5 (L) | 3.5 - 4.7 g/dL | [facility] | | | PLASMA | | | LABORATORY | | | (LAB) | | | SERVICES, | | | | | | CORE | | + + + + + + | ALK PHOS | 139 (H) | 53 - 128 U/L | [facility] | | | | | | LABORATORY | | | | | | SERVICES, | | | | | | CORE | | + + + + + + | AST(SGOT) | 67 (H) | <=41 U/L | [facility] | [...] MDRD equation recommended by the National | [facility] | | Kidney Disease Education Program. Estimated [...] | + + + + + | [facility] | [address] | [place] [address] | | | SERVICES, CORE | [address] | | | + + + + + CARDIOLOGY (04/22/2019 12:00 AM PDT) + + + | Narrative | Performed At | + + + | | | + + + CARDIOLOGY (04/22/2019 12:00 AM PDT) + + + | Narrative | Performed At | + + + | | | + + + X-RAY CHEST 2 VIEW (04/21/2019 4:27 PM PDT) + + | Specimen | + + | | + + + + + | Narrative | Performed At | + + + | EXAM: CHEST 2 VIEWS HISTORY: Acute Chest Pain | [facility] | | COMPARISON: None FINDINGS: Cardiomediastinal contours are | RADIOLOGY VOICE | | unremarkable. The lungs are clear. No pulmonary edema or | RECOGNITION 2 | | consolidation. There is no pleural effusion or pneumothorax. Moderate | | | compression deformities noted in the lower thoracic spine, age | | | indeterminate. IMPRESSION: Clear lungs. Compression | | | deformities in the lower thoracic spine, most likely chronic, although | | | age indeterminate. I have personally reviewed the images and, if | | | necessary, edited the report. I agree with the report as now | | | presented. Final signature: Bakari Paredes MD 04/21/2019 4:27 PM | | | Preliminary: Bakari Paredes MD Dictation initiated: Bakari Banks | Darren Paredes MD 04/21/2019 4:26 PM | | + + + + + | Procedure Note | + + | Service Account, Radiant Res In Interface - 04/21/2019 4:28 PM PDT EXAM: CHEST 2 | | VIEWS HISTORY: Acute Chest Pain COMPARISON: None FINDINGS:Cardiomediastinal contours | | are unremarkable. The lungs are clear. No pulmonary edema or consolidation. There is no | | pleural effusion or pneumothorax. Moderate compression deformities noted in the lower | | thoracic spine, age indeterminate. IMPRESSION: Clear lungs. Compression deformities in | | the lower thoracic spine, most likely chronic, although age indeterminate. I have | | personally reviewed the images and, if necessary, edited the report. I agree with the | | report as now presented. Final signature: Bakari Paredes MD 04/21/2019 4:27 PM | | Preliminary: Bakari Paredes MD Dictation initiated: Bakari Paredes MD 04/21/2019 4:26 | | PM | | | |Clear lungs. | | | |Compression deformities in the lower thoracic spine, most likely chronic, although age inde terminate. | | | |I have personally reviewed the images and, if necessary, edited the report. I agree with th e report as now presented. | | | |Final signature: Bakari Paredes MD 04/21/2019 4:27 PM | |Preliminary: Bakari Paredes MD | |Dictation initiated: Bakari Paredes MD 04/21/2019 4:26 PM | + + + +---------+ + + | Performing | Address | City/State/Zipcode | Phone Number | | Organization | | | | + +---------+ + + | [facility] | | | | | VOICE RECOGNITION 2 | | | | + +---------+ + + 12 LEAD ECG (04/21/2019 4:13 PM PDT) + + + + + + | Component | Value | Ref Range | Performed | Pathologist | | | | | At | Signature | + + + + + + | VENTRICULAR | 160 | bpm | [facility] | | | RATE | | | OF | | | | | | CARDIOLOGY | | + + + + + + | ATRIAL RATE | 160 | ms | [facility] | | | | | | OF | | | | | | CARDIOLOGY | | + + + + + + | P-R | 215 | ms | [facility] | | | INTERVAL | | | OF | | | | | | CARDIOLOGY | | + + + + + + | P AXIS | 47 | deg | [facility] | | | | | | OF | | | | | | CARDIOLOGY | | + + + + + + | QRS | 109 | ms | [facility] | | | DURATION | | | OF | | | | | | CARDIOLOGY | | + + + + + + | QT | 306 | ms | [facility] | | | | | | OF | | | | | | CARDIOLOGY | | + + + + + + | QTC-BAZETT | 499 | ms | [facility] | | | | | | OF | | | | | | CARDIOLOGY | | + + + + + + | R AXIS | 8 | deg | [facility] | | | | | | OF | | | | | | CARDIOLOGY | | + + + + + + | T AXIS | 86 | deg | [facility] | | | | | | OF | | | | | | CARDIOLOGY | | + + + + + + | ECG | Supraventricular | | [facility] | | | IMPRESSION | tachycardia | | OF | | | | | | CARDIOLOGY | | + + + + + + | ECG | Repolarization | | [facility] | | | IMPRESSION | abnormality | | OF | | | | | | CARDIOLOGY | | + + + + + + | ECG | Prolonged QT interval - | | [facility] | | | IMPRESSION | ABNORMAL ECG - | | OF | | | | | | CARDIOLOGY | | + + + + + + | ECG | Electronically signed | | [facility] | | | IMPRESSION | by: DOUG CASTILLO | | OF | | | | 04-21-2019 21:36:12 | | CARDIOLOGY | | + + [...] DEPT OF | [address] | [place], [place] | | | CARDIOLOGY | [address] | [address] | | + + + + + TROPONIN, POC (04/21/2019 3:12 PM PDT) + +-------+ + + + | Component | Value | Ref Range | Performed | Pathologist | | | | | At | Signature | + +-------+ + + + | TROPONIN, | 0.09 | 0.0 - 0.49 | [facility] | | | POC | | ng/mL | [facility] | | | | | [...] | [facility] | [address] | [place], [place] | | | [facility] | [address] | [address] | | | TESTS | | | | + + + + + CBC AND AUTO DIFF (04/21/2019 3:09 PM PDT) + + + + + + | Component | Value | Ref Range | Performed | Pathologist | | | | | At | Signature | + + + + + + | WHITE CELL | 8.26 | 3.50 - 10.80 | [facility] | [...] + | HEMATOCRIT | 20.7 (L) | 41.0 - 53.0 % | [facility] | | | | | | LABORATORY | | | | | | SERVICES, | | | | | | CORE | | + + + + + + | MCV | 105.6 (H) | 80.0 - 100.0 fL | [facility] | | | | | | LABORATORY | | | | | | SERVICES, | | | | | | CORE | | + + + + + + | MCHC | 36.7 (H) | 32.0 - 36.0 | [facility] | | | | | g/dL | LABORATORY | | | | | | SERVICES, | | | | | | CORE | | + + + + + + | RDW SD | 45.7 | 35.1 - 46.3 fL | [facility] [...] + + + + | MPV | 10.0 | 9.7 - 12.3 fL | [facility] [...] + + + + | NEUTROPHIL | 79.6 (H) | 50.0 - 70.0 % | [...] + + + | MONOCYTE % | 9.0 | 3.5 - 9.0 % | [facility] | | | | | | LABORATORY | | | | | | SERVICES, | | | | | | CORE | | + + + + + + | EOS % | 0.6 (L) | 1.0 - 3.0 % | [...] + + + + | IG% | 1.0Comment: Increased | 0.0 - 1.0 % | [...] + + + + | NEUTROPHIL | 6.58 | 1.80 - 7.70 | [facility] | | | # | | K/cu mm | LABORATORY | | | | | | SERVICES, | | | | | | CORE | | + + + + + + | LYMPHOCYTE | 0.78 (L) | 1.00 - 4.80 | [facility] | | | # | | K/cu mm | LABORATORY | | | | | | SERVICES, | | | | | | CORE | | + + + + + + | MONOCYTE # | 0.74 | 0.10 - 0.90 | [facility] | [...] + + + + | IG# | 0.08 | 0.00 - 0.10 | [...] | + + + + + | [facility] | [address] | [place] [address] | | | SERVICES, CORE | [address] | | | + + + + + MAGNESIUM, PLASMA (04/21/2019 3:09 PM PDT) + +-------+ + + + | Component | Value | Ref Range | Performed | Pathologist | | | | | At | Signature | + +-------+ + + + | MAGNESIUM,P | 1.8 | 1.6 - 2.6 mg/dL | [facility] [...] [facility] | [address] | [place] [address] | | | [facility] | [address] | | | + + + + + APTT (ACT. PART. THROMBO TIME) (04/21/2019 3:09 PM PDT) + + + + + + | Component | Value | Ref Range | Performed | Pathologist | | | | | At | Signature | + + + + + + | APTT | 61.1 (H) | 26.0 - 36.0 | [facility] [...] Performed At | + + + | If on Coumadin APTT values for monitoring heparin therapy may be | [facility] | | affected by specimens processed >1 hour after collection. APTT | LABORATORY | | Therapeutic Range: (75 - 120) sec | [facility] | | Heparin levels of 0.35 - 0.7 U/mL | | + + + + + + + + | Performing | Address | City/State/Zipcode | Phone Number | | Organization | | | | + + + + + | [facility] | [address] | [place] [address] | | | [facility] | [address] | | | + + + + + INR (04/21/2019 3:09 PM PDT) + + + + + + | Component | Value | Ref Range | Performed | Pathologist | | | | | At | Signature | + + + + + + | INR | 2.94 (H) | 0.90 - 1.20 INR | [...] Performed At | + + + | If on Coumadin INR Therapeutic ranges for full anticoagulation: | [facility] | | INR for Venous Thromboembolism (2.0 - 3.0) INR INR | LABORATORY | | for most patients with mech. valves (2.5 - 3.5) INR | [facility], [facility] | + + + + + + + + | Performing | Address | City/State/Zipcode | Phone Number | | Organization | | | | + + + + + | [facility] | [address] | [place] [address] | | | [facility] | [address] | | | + + + + + COMPLETE METABOLIC SET (NA,K,CL,CO2,BUN,CREAT,GLUC,CA,AST,ALT,BILI TOTAL,ALK PHOS,ALB,PROT TOTAL) (04/21/2019 3:09 PM PDT) + + + + + + | Component | Value | Ref Range | Performed | Pathologist | | | | | At | Signature | + + + + + + | GLUCOSE, | 141 (H) | 70 - 99 [...] + + + + | CREATININE | 1.70 (H) | 0.70 - 1.30 | [facility] | | | PLASMA | | mg/dL | LABORATORY | | | (LAB) | | | SERVICES, | | | | | | CORE | | + + + + + + | EGFR | 51 (L) | >60 mL/min | [facility] | | | - | | | LABORATORY | | | [facility] | | | SERVICES, | | [...] + + + + | BILIRUBIN | 15.2 (H) | 0.3 - 1.2 mg/dL | [facility] | | | TOTAL | | | LABORATORY | | | | | | SERVICES, | | | | | | CORE | | + + + + + + | TOTAL | 7.5 | 6.4 - 8.2 g/dL | [facility] [...] + + + | ALK PHOS | 171 (H) | 53 - 128 U/L | [...] + + + | ALT (SGPT) | 52 | <=60 U/L | [facility] | | [...] MDRD equation recommended by the National | [facility] | | Kidney Disease [...] | + + + + + | [facility] | [address] | [place] [address] | | | SERVICES, CORE | [address] | | | + + + + + TROPONIN I, PLASMA (04/21/2019 3:09 PM PDT) + +-------+ + + + | Component | Value | Ref Range | Performed | Pathologist | | | | | At | Signature | + +-------+ + + + | TROPONIN I | 0.09 | <0.80 ng/mL | [facility] | | [...] | + + + + + | [facility] | [address] | [place] [address] | | | SERVICES, CORE | [address] | | | + + + + + 12 LEAD ECG (04/21/2019 2:13 PM PDT) + + + + + [...] + + + + | P-R | 177 | ms | [facility] | | | INTERVAL | | | OF | | | | | | CARDIOLOGY | | + + + + + + | P AXIS | 68 | deg | [facility] | | | | | | OF | | | | | | CARDIOLOGY | | + + + + + + | QRS | 123 | ms | [facility] | | | DURATION | | | OF | | | | | | CARDIOLOGY | | + + + + + + | QT | 387 | ms | [facility] | | | | | | OF | | | | | | CARDIOLOGY | | + + + + + + | QTC-BAZETT | 451 | ms | [facility] | | | | | | OF | | | | | | CARDIOLOGY | | + + + + + + | R AXIS | 8 | deg | [facility] | | | | | | OF | | | | | | CARDIOLOGY | | + + + + + + | T AXIS | 69 | deg | [facility] | | [...] + + + | ECG | Nonspecific | | [facility] | | | IMPRESSION | intraventricular | | OF | | | | conduction delay | | CARDIOLOGY | | + + + + + + | ECG | Nonspecific T | | [facility] | | | IMPRESSION | abnormalities, anterior | | OF | | | | leads- ABNORMAL ECG - | | CARDIOLOGY | | + + + + + + | ECG | Electronically signed | | [facility] | | | IMPRESSION | by: DOUG CASTILLO | | OF | | | | 04-21-2019 20:45:43 | | CARDIOLOGY | | + + [...] [facility] | [address] | [place], [place] | | | CARDIOLOGY | [address] | [id number] | | + + + + + CARDIOLOGY (04/21/2019 12:00 AM PDT) + + + | Narrative | Performed At | + + + | | | + + + CARDIOLOGY (04/21/2019 12:00 AM PDT) + + + | Narrative | Performed At | + + + | | | + + + CARDIOLOGY (04/21/2019 12:00 AM PDT) + + + | Narrative | Performed At | + + + | | | + + + CARDIOLOGY (04/21/2019 12:00 AM PDT) + + + | Narrative | Performed At | + + + | | | + + + documented in this encounter Visit Diagnoses + + | Diagnosis | + + | SVT (supraventricular tachycardia) ([facility]) - Primary Other specified cardiac | | dysrhythmias | + + | Paroxysmal A-fib (HCC) Atrial fibrillation | + + | Alcoholic cirrhosis of liver with ascites (HCC) Alcoholic cirrhosis of liver | + + | Hepatorenal syndrome (HCC) Hepatorenal syndrome | + + | Chronic kidney disease, unspecified CKD stage | + + documented in this encounter Administered Medications + +--------+---------+------+------+------+ | Medication Order | MAR | Action | Dose | Rate | Site | | | Action | Date | | | | + +--------+---------+------+------+------+ + +---+ | acetaminophen (TYLENOL) tablet | | | 325-650 mg 325-650 mg, oral, | | | EVERY 4 HOURS NEEDED, Starting | | | 04/21/19 at 1952, Until Sat | | | 04/25/19 at 0058, mild pain, first | | | line, multimodal pain control | | + +---+ | | | + +---+ + +---------+ +------+---+---+ | adenosine (ADENOCARD) injection | IV Push | 04/21/20 | 6 mg | | | | 6 mg 6 mg, intravenous, ONCE, 1 | | 19 5:16 | | | | | dose, Sat04/21/19 at 1745 | | PM PDT | | | | + +---------+ +------+---+---+ + +---+ | | | + +---+ | adenosine (ADENOCARD) injection | | | 1 dose, Starting Sat04/21/19 at | | | 1711, Until 04/21/19 at 1716 | | + +---+ | | | + +---+ | bisacodyl (DULCOLAX) | | | suppository 10 mg 10 mg, rectal, | | | DAILY NEEDED, Starting Tue | | | 04/21/19 at 1952, Until 04/25/19 | | | at 0058, 2nd line for no BM in | | | past 2 days OR if no response to | | | MIRALAX or if patient unable to | | | tolerate oral | | + +---+ | | | + +---+ | diphtheria-acellular | | | pertussis-tetanus (ADACEL | | | (booster), Tdap) injection 0.5 mL | | | 0.5 mL, intramuscular, ONE TIME | | | DURING VISIT, 1 dose, Starting | | | 04/22/19 at 0957, Until Sat | | | 04/25/19 at 0058 | | + +---+ | | | + +---+ + +-------+ +-------+---+---+ | furosemide (LASIX) tablet 20 mg | Given | 04/24/20 | 20 mg | | | | 20 mg, oral, DAILY, First dose | | 19 9:08 | | | | | on Thelma 04/23/19 at 1330, Until | | AM PDT | | | | | Discontinued | | | | | | + +-------+ +-------+---+---+ +-------+ +-------+---+---+ | Given | 04/23/20 | 20 mg | | | | | 19 1:38 | | | | | | PM PDT | | | | +-------+ +-------+---+---+ +---+---+ | | | +---+---+ + +---------+ +-------+---+---+ | gadoterate meglumine (DOTAREM) | IV Push | 04/22/20 | 17 mL | | | | 0.5 mmol/mL (376.9 mg/mL) | | 19 2:18 | | | | | injection 17 mL 17 mL (rounded | | PM PDT | | | | | from 16.8 mL = 0.2 mL/kg | | | | | | | 84 kg), intravenous, ONCE, 1 | | | | | | | dose, [facility] 04/22/19 at 1430 | | | | | | + +---------+ +-------+---+---+ +---+---+ | | | +---+---+ + +-------+ +--------+---+---------+ | heparin injection 5,000 Units | Given | 04/24/20 | 5,000 | | Abdomen | | 5,000 Units, subcutaneous, EVERY | | 19 9:08 | Units | | | | 12 HOURS, First dose on Tue | | AM PDT | | | | | 04/21/19 at 2100, Until | | | | | | | Discontinued | | | | | | + +-------+ +--------+---+---------+ +-------+ +--------+---+---------+ | Given | 04/23/20 | 5,000 | | Abdomen | | | 19 10:19 | Units | | | | | PM PDT | | | | +-------+ +--------+---+---------+ | Given | 04/23/20 | 5,000 | | Abdomen | | | 19 9:33 | Units | | | | | AM PDT | | | | +-------+ +--------+---+---------+ +---+---+ | | | +---+---+ + +---------+ +-------+-------+---+ | lactated ringers IV 250 mL/hr, | New Bag | 04/21/20 | 250 | 250 | | | intravenous, CONTINUOUS, | | 19 9:10 | mL/hr | mL/hr | | | Starting Sat04/21/19 at 2030, | | PM PDT | | | | | Until Sat04/21/19 at 2229 | | | | | | + +---------+ +-------+-------+---+ +---+---+ | | | +---+---+ + +-------+ +------+---+---+ | lactulose (ENULAC) liquid 20 g | Given | 04/24/20 | 20 g | | | | 20 g (30 mL), oral, THREE TIMES | | 19 9:09 | | | | | DAILY, First dose on Sat04/21/19 | | AM PDT | | | | | at 2200, Until Discontinued | | | | | | + +-------+ +------+---+---+ +-------+ +------+---+---+ | Given | 04/23/20 | 20 g | | | | | 19 10:19 | | | | | | PM PDT | | | | +-------+ +------+---+---+ | Given | 04/23/20 | 20 g | | | | | 19 4:04 | | | | | | PM PDT | | | | +-------+ +------+---+---+ +---+---+ | | | +---+---+ + +---------+ +-----+---+---+ | magnesium sulfate in water IV | New Bag | 04/21/20 | 2 g | | | | (RTU) 2 g 2 g, intravenous, | | 19 5:01 | | | | | ONCE, 1 dose, [place] 04/21/19 at 1730 | | PM PDT | | | | + +---------+ +-----+---+---+ +---+---+ | | | +---+---+ + +-------+ +---------+---+---+ | metoprolol tartrate (LOPRESSOR) | Given | 04/22/20 | 12.5 mg | | | | tablet 12.5 mg 12.5 mg, oral, | | 19 8:54 | | | | | EVERY 6 HOURS, First dose (after | | AM PDT | | | | | last modification) on Sat04/21/19 | | | | | | | at 1730, Until Discontinued | | | | | | + +-------+ +---------+---+---+ +-------+ +---------+---+---+ | Given | 04/21/20 | 12.5 mg | | | | | 19 10:38 | | | | | | PM PDT | | | | +-------+ +---------+---+---+ | Given | 04/21/20 | 12.5 mg | | | | | 19 5:30 | | | | | | PM PDT | | | | +-------+ +---------+---+---+ +---+---+ | | | +---+---+ + +-------+ +---------+---+---+ | metoprolol tartrate (LOPRESSOR) | Given | 04/24/20 | 12.5 mg | | | | tablet 12.5 mg 12.5 mg, oral, | | 19 6:25 | | | | | EVERY 6 HOURS, First dose on Thelma | | PM PDT | | | | | 04/23/19 at 1245, Until | | | | | | | Discontinued | | | | | | + +-------+ +---------+---+---+ +-------+ +---------+---+---+ | Given | 04/24/20 | 12.5 mg | | | | | 19 10:02 | | | | | | AM PDT | | | | +-------+ +---------+---+---+ | Given | 04/24/20 | 12.5 mg | | | | | 19 4:12 | | | | | | AM PDT | | | | +-------+ +---------+---+---+ + +---+ | | | + +---+ | ondansetron ODT (ZOFRAN ODT) | | | tablet 8 mg 8 mg, oral, EVERY 12 | | | HOURS NEEDED, Starting Tue | | | 04/21/19 at 1952, Until 04/25/19 | | | at 0058, nausea/vomiting, first | | | line | | + +---+ | | | + +---+ + +-------+ +------+---+---+ | polyethylene glycol (MIRALAX) | Given | 04/22/20 | 17 g | | | | packet 17 g 17 g, oral, DAILY, | | 19 8:53 | | | | | First dose on Sat04/22/19 at 0900, | | AM PDT | | | | | Until Discontinued | | | | | | + +-------+ +------+---+---+ + +---+ | | | + +---+ | polyethylene glycol (MIRALAX) | | | packet 34 g 34 g, oral, THREE | | | TIMES DAILY NEEDED, Starting | | | 04/21/19 at 1952, Until Sat | | | 04/25/19 at 0058, 1st line - for no | | | BM for 2 days | | + +---+ | | | + +---+ | prochlorperazine (COMPAZINE) | | | injection 5-10 mg 5-10 mg, | | | intravenous, EVERY 6 HOURS | | | NEEDED, Starting 04/21/19 at | | | 1951, Until 04/25/19 at 0058, | | | nausea/vomiting not responding to | | | ondansetron and unable to take | | | oral prochlorperazine | | + +---+ | | | + +---+ | prochlorperazine (COMPAZINE) | | | tablet 5-10 mg 5-10 mg, oral, | | | EVERY 6 HOURS NEEDED, Starting | | | 04/21/19 at 1951, Until Sat | | | 04/25/19 at 0058, nausea/vomiting, | | | second line | | + +---+ | | | + +---+ + +-------+ +---------+---+---+ | senna-docusate (SENOKOT S) | Given | 04/22/20 | 2 | | | | 8.6-50 mg 2 tablet 2 tablet, | | 19 8:54 | tablets | | | | oral, TWICE DAILY, First dose on | | AM PDT | | | | | 04/21/19 at 2145, Until | | | | | | | Discontinued | | | | | | + +-------+ +---------+---+---+ +---+---+ | | | +---+---+ + +-------+ +-------+---+---+ | spironolactone (ALDACTONE) | Given | 04/24/20 | 50 mg | | | | tablet 50 mg 50 mg, oral, DAILY, | | 19 9:08 | | | | | First dose (after last | | AM PDT | | | | | modification) on [facility] 04/23/19 at | | | | | | | 1445, Until Discontinued | | | | | | + +-------+ +-------+---+---+ +-------+ +-------+---+---+ | Given | 04/23/20 | 50 mg | | | | | 19 1:43 | | | | | | PM PDT | | | | +-------+ +-------+---+---+ + +---+ | | | + +---+ | white petrolatum-mineral oil | | | (EUCERIN) cream topical, | | | NEEDED, Starting [facility] 04/23/19 at | | | 1127, Until 04/25/19 at 0058, | | | xerosis | | + +---+ | | | + +---+ documented in this encounter
--- OUTSIDE RECORDS SUMMARY | ~2020-07-29 | XMS | Encounter Summary ---
Demographics + + + | Address | [address] | | | [place] [address] | + + + | Home Phone [...] [place] | | | | | [address] | | + + + + + Care Team Providers + +------+ + | Care Cutter Aluminum Sheet Name | Role | Phone | + +------+ + | Sharon David MD | PCP | | + +------+ + Reason for Visit + +--------+ + | Reason | Onset | Comments | | | Date | | + +--------+ + | Refill Request | 09/25/ | | | | 2019 | | + +--------+ + Encounter Details +--------+--------+ + + + | Date | Type | Department | Care Team | Description | +--------+--------+ + + + | 09/25/ | Refill | Clinical | Pattie Ignacio, | Refill Request | | 2019 | | Transplant Services | [facility] [address] | | | | | [address] | [address] | | | | | [place], | [place], [place] | | | | | [place] [address] | [address] | | | | | [phone] | [phone] | | | | | | | [...] [address] | | | | | | [place], [place] | | | | | | [address] | | | | | | [phone] | | | | | | | | +--------+ + + + + | 09/27/ | Telephone-S | Liver Transplant | Vimal Crowe MD | | | 2019 | cheduled | | [address] | | | | | | [address], | | | | | | [place] [address] | | | | | | [phone] | | | | | | | | +--------+ + + + + | 10/03/ | Appointment | Cardiology | | | | 2019 | | | | | +--------+ + + + + | 10/03/ | Office | Cardiology | Cyril Samuel | | | 2020 | Visit | | MD Patricia [address] [facility] | | | | | | [address] | | | | | | [place] | | | | | | [address] | | | | | | [phone] | | | | | | | | +--------+ + + + + documented as of this encounter Visit Diagnoses Not on filedocumented in this encounter"
--- OUTSIDE RECORDS SUMMARY | ~2020-07-29 | XMS | Encounter Summary ---
Demographics + + + | Address | [address] | | | [place] [address] | + + + | Home Phone [...] [place] | | | | | [address] | | + + + + + Care Team Providers + +------+ + | Care Simulation Engineer Name | Role | Phone | + +------+ + | Sharon David MD | PCP | | + +------+ + Encounter Details +--------+ + + + + | Date | Type | Department | Care Team | Description | +--------+ + + + + | 03/23/ | Pharmacy | [facility] | | | | 2020 | Visit | [address] | | | | | | [address] | | | | | | [place] [address] | | | | | | [phone] | | | +--------+ + + + [...] Rd | | | | | | [place], [place] | | | | | | [address] | | | | | | [phone] | | | | | | | | +--------+ + + + + | 09/27/ | Telephone-S | Liver Transplant | Vimal Crowe MD | | | 2019 | cheduled | | [address] | | | | | | [address], | | | | | | [place] [address] | | | | | | [phone] | | | | | | | [...] Rd | | | | | | [place] | | | | | | [address] | | | | | | [phone] | | | | | | | | +--------+ + + + + documented as of this encounter Visit Diagnoses Not on filedocumented in this encounter"
--- OUTSIDE RECORDS SUMMARY | ~2020-07-29 | XMS | Encounter Summary ---
Demographics + + + | Address | [address] | | | [place] [address] | + + + | Home Phone [...] [place] | | | | | [address] | | + + + + + Care Team Providers + +------+ + | Care Mixing Technician Name | Role | Phone | + +------+ + | Sharon David MD | PCP | | + +------+ + Encounter Details +--------+ + + + + | Date | Type | Department | Care Team | Description | +--------+ + + + + | 08/17/ | Pharmacy | [facility]ty Pharmacy | | | | 2019 | Visit | Services [address] | | | | | [address] | | | | | | [place], [place] | | | | | | [address] | | | | | | [phone] | | | +--------+ + + + [...] | | 2019 | [place] | | [address] | | | | | | [address] | | | | | | [place], [place] | | | | | | [address] | | | | | | [phone] | | | | | | | | +--------+ + + + + | 09/27/ | Telephone-S | Liver Transplant | Vimal Crowe MD | | | 2019 | cheduled | | [address] | | | | | | [facility] [place], | | | | | | [place] [address] | | | | | | [phone] | | | | | | | | +--------+ + + + + | 10/03/ | Appointment | Cardiology | | | | 2019 | | | | | +--------+ + + + + | 10/03/ | Office | Cardiology | Cyril Samuel | | | 2019 | Visit | | MD Patricia [address] | | | | | | [address] | | | | | | [place], [place] | | | | | | [address] | | | | | | [phone] | | | | | | | | +--------+ + + + + documented as of this encounter Visit Diagnoses Not on filedocumented in this encounter"
--- OUTSIDE RECORDS SUMMARY | ~2020-07-29 | XMS | Encounter Summary ---
Demographics + + + | Address | [address] | | | [place] [address] | + + + | Home Phone [...] [place] | | | | | [address] | | + + + + + Care Team Providers + +------+ + | Care Trash Collector Supervisor Name | Role | Phone | + +------+ + | Sharon David MD | PCP | | + +------+ + Encounter Details +--------+ + + + + | Date | Type | Department | Care Team | Description | +--------+ + + + + | 03/24/ | Pharmacy | [facility] | | | | 2020 | Visit | [address] | | | | | [address] | | | | | | [place] [address] | | | | | | [phone] | | | +--------+ + + + [...] Rd | | | | | | [place], [place] | | | | | | [address] | | | | | | [phone] | | | | | | | | +--------+ + + + + | 09/27/ | Telephone-S | Liver Transplant | Vimal Crowe MD | | | 2019 | cheduled | | [address] | | | | | | [address], | | | | | | [place] [address] | | | | | | [phone] | | | | | | | [...] Rd | | | | | | [place] | | | | | | [address] | | | | | | [phone] | | | | | | | | +--------+ + + + + documented as of this encounter Visit Diagnoses Not on filedocumented in this encounter"
--- OUTSIDE RECORDS SUMMARY | ~2020-07-29 | XMS | Encounter Summary ---
Demographics + + + | Address | [address] | | | [place] [address] | + + + | Home Phone [...] [place] | | | | | [address] | | + + + + + Care Team Providers + +------+ + | Care Athlete Marketing Agent Name | Role | Phone | + +------+ + | Sharon David MD | PCP | | + +------+ + Reason for Visit + +--------+ + | Reason | Onset | Comments | | | Date | | + +--------+ + | MELD Score | 07/20/ | | | | 2019 | | + +--------+ + Encounter Details +--------+ + + + + | Date | Type | Department | Care Team | Description | +--------+ + + + + | 07/20/ | Abstract | Clinical | Vimal Crowe MD | MELD Score | | 2019 | | Transplant Services | [address] | | | | | [address] | [address] [place], | | | | | [place], | [place] [address] | | | | | [place] [address] | [phone] | | | | | [phone] | | | +--------+ + + + [...] as of this encounter Amy Evans - 07/20/2019 8:13 AM PDTEntry verified in [facility] Waitlist. documented [...] Rd | | | | | | [place], [place] | | | | | | [address] | | | | | | [phone] | | | | | | | | +--------+ + + + + | 09/27/ | Telephone-S | Liver Transplant | Vimal Crowe MD | | | 2019 | [place] | | [address] | | | | | | [address], | | | | | | [place] [address] | | | | | | [phone] | | | | | | | [...] Rd | | | | | | [place], [place] | | | | | | [address] | | | | | | [phone] | | | | | | | | +--------+ + + + + documented as of this encounter Procedures + +--------+ + + + | Procedure Name | Priori | Date/Time | Associated Diagnosis | Comments | | | ty | | | | + +--------+ + + + | LAB OTHER | Routin | 07/20/2019 | | Results for this | | | e | | | procedure are in the | | | | | | results section. | + +--------+ + + + documented in this encounter Results LAB OTHER (07/20/2019) + + + + + + | Component | Value | Ref Range | Performed | Pathologist | | | | | At | Signature | + + + + + + | MELD | 36Comment: Calculated | | CALCULATED | | | | Manually Using [employer] MELD | | MANUALLY | | | | Calculator | | | | + + + + + + + + | Specimen | + + | | + + + + + + + | Performing | Address | City/State/Zipcode | Phone Number | | Organization | | | | + + + + + | CALCULATED | [address] | [place], [place] | | | MANUALLY | | | | + + + + + documented in this encounter Visit Diagnoses Not on filedocumented in this encounter"
--- OUTSIDE RECORDS SUMMARY | ~2020-07-29 | XMS | Encounter Summary ---
Demographics + + + | Address | [address] | | | [place] [address] | + + + | Home Phone [...] [place] | | | | | [address] | | + + + + + Care Team Providers + +------+ + | Care Ludlow Machine Operator Name | Role | Phone | + +------+ + | Sharon David MD | PCP | | + +------+ + Encounter Details +--------+--------+ + + + | Date | Type | Department | Care Team | Description | +--------+--------+ + + + | 07/06/ | Travel | | | | | [...] Rd | | | | | | [place], [place] | | | | | | [address] | | | | | | [phone] | | | | | | | | +--------+ + + + + | 09/27/ | Telephone-S | Liver Transplant | Vimal Crowe MD | | | 2019 | [place] | | [address] | | | | | | [address], | | | | | | [place] [address] | | | | | | [phone] | | | | | | | [...] [place] | | | | | | [address] | | | | | | [phone] | | | | | | | | +--------+ + + + + documented as of this encounter Visit Diagnoses Not on filedocumented in this encounter"
--- OUTSIDE RECORDS SUMMARY | ~2020-07-29 | XMS | Encounter Summary ---
Demographics + + + | Address | [address] | | | [place] [address] | + + + | Home Phone [...] [place] | | | | | [address] | | + + + + + Care Team Providers + +------+ + | Care Charter Coach Driver Name | Role | Phone | + +------+ + | Sharon David MD | PCP | | + +------+ + Encounter Details +--------+ + + + + | Date | Type | Department | Care Team | Description | +--------+ + + + + | 11/10/ | Pharmacy | Outpatient Retail | | | | 2019 | Visit | [facility] | | | | | | [address] | | | | | | [address] [place], [place] | | | | | | [address] | | | | | | [phone] | | | +--------+ + + + [...] Rd | | | | | | [place], [place] | | | | | | [address] | | | | | | [phone] | | | | | | | | +--------+ + + + + | 09/27/ | Telephone-S | Liver Transplant | Vimal Crowe MD | | | 2019 | cheduled | | [address] | | | | | | [facility] [place], | | | | | | [place] [address] | | | | | | [phone] | | | | | | | [...] Rd | | | | | | [place], [place] | | | | | | [address] | | | | | | [phone] | | | | | | | | +--------+ + + + + documented as of this encounter Visit Diagnoses Not on filedocumented in this encounter"
--- OUTSIDE RECORDS SUMMARY | ~2020-07-29 | XMS | Encounter Summary ---
Demographics + + + | Address | [address] | | | [place] [address] | + + + | Home Phone [...] [place] | | | | | [address] | | + + + + + Care Team Providers + +------+ + | Care Surgical Territory Manager Name | Role | Phone | + +------+ + | Sharon David MD | PCP | | + +------+ + Reason for Referral Consultation (Routine) + +--------+ + + + + | Status | Reason | Specialty | Diagnoses / | Referred By | Referred To | | | | | Procedures | Contact | Contact | + +--------+ + + + + | Authorized | | | Diagnoses | Mia, | | | | | | Iron | Tyson Buchanan MD | Michael, | | | | | overload | [address] | Pal Coats MD | | | | | Procedures | [address] | [address] | | | | | CONSULT TO | [address] | Jatin[address] Fuller | | | | | HEMATOLOGY / | [place], [place] | [place], [place] | | | | | ONCOLOGY | [address] | [address] | | | | | | Phone: | Phone: | | | | | | [phone] | [phone] | | | | | | Fax: | Fax: | | | | | | [phone] | [phone] | + +--------+ + + + + Encounter Details +--------+ + + + + | Date | Type | Department | Care Team | Description | +--------+ + + + + | 11/06/ | [facility] | [facility] | Tyson Bellamy, | Iron overload | | 2020 | | Clinics at S | MD [address] | (Primary Dx) | | | | [facility] [address] | [address] [place], | | | | | [address] [facility] | [place] [address] | | | | | [facility], | [phone] | | | | | [address] | | | | | | [place], [place] | | | | | | [address] | | | | | | [phone] | | | +--------+ + + + [...] Notes Telephone Encounter - Radha Ricardo - 11/07/2019 1:54 PM PSTTeam Coordinator Documentation : Subject: Note Referral has been faxed to [phone]. [facility] Plan of Treatment +--------+ + + + + | Date | Type | Specialty | Care Team | Description | +--------+ + + + + | 08/08/ | Telephone-S | Nephrology | Angélica Chao, | | | 2019 | [place] | | [address] | | | | | | [address] | | | | | | [place], [place] | | | | | | [address] | | | | | | [phone] | | | | | | | | +--------+ + + + + | 09/27/ | Telephone-S | Liver Transplant | Vimal Crowe MD | | | 2019 | [place] | | [address] | | | | | | [address], | | | | | | [place] [address] | | | | | | [phone] | | | | | | | | +--------+ + + + + | 10/03/ | Appointment | Cardiology | | | | 2019 | | | | | +--------+ + + + + | 10/03/ | Office | Cardiology | Cyril Samuel | | | 2020 | Visit | | MD Patricia [address] [facility] | | | | | | [address] | | | | | | [place], [place] | | | | | | [address] | | | | | | [phone] | | | | | | | | +--------+ + + + + documented as of this encounter Visit Diagnoses + + | Diagnosis | + + | Iron overload - Primary Other disorders of iron metabolism | + + documented in this encounter"
--- OUTSIDE RECORDS SUMMARY | ~2020-07-29 | XMS | Encounter Summary ---
Demographics + + + | Address | [address] | | | [place] [address] | + + + | Home Phone [...] [place] | | | | | [address] | | + + + + + Care Team Providers + +------+ + | Care Director Speech Name | Role | Phone | + [...] Description | +--------+--------+ + + + | 04/26/ | Refill | Clinical | Sharon David | Refill Request | | 2020 | | Transplant Services | MD Le[address] | | | | | [address] | [address] | | | | | [place], | [place] [address] | | | | | [place] [address] | [phone] | | | | | [phone] | | | +--------+--------+ + + + [...] Rd | | | | | | [place], [place] | | | | | | [address] | | | | | | [phone] | | | | | | | | +--------+ + + + + | 09/27/ | Telephone-S | Liver Transplant | Vimal Crowe MD | | | 2019 | [place] | | [address] | | | | | | [address], | | | | | | [place] [address] | | | | | | [phone] | | | | | | | [...] [place] | | | | | | [address] | | | | | | [phone] | | | | | | | | +--------+ + + + + documented as of this encounter Visit Diagnoses Not on filedocumented in this encounter"
--- OUTSIDE RECORDS SUMMARY | ~2020-07-29 | XMS | Encounter Summary ---
Demographics + + + | Address | [address] | | | [place] [address] | + + + | Home Phone [...] [place] | | | | | [address] | | + + + + + Care Team Providers + +------+ + | Care Well Site Drilling Engineer Name | Role | Phone | + +------+ + | Sharon David MD | PCP | | + +------+ + Encounter Details +--------+ + + + + | Date | Type | Department | Care Team | Description | +--------+ + + + + | 04/26/ | Pharmacy | [facility] | | | | 2020 | Visit | [address] | | | | | | [address] | | | | | | [place] [address] | | | | | | [phone] | | | +--------+ + + + [...] Rd | | | | | | [place], [place] | | | | | | [address] | | | | | | [phone] | | | | | | | | +--------+ + + + + | 09/27/ | Telephone-S | Liver Transplant | Vimal Crowe MD | | | 2019 | cheduled | | [address] | | | | | | [address], | | | | | | [place] [address] | | | | | | [phone] | | | | | | | [...] Rd | | | | | | [place] | | | | | | [address] | | | | | | [phone] | | | | | | | | +--------+ + + + + documented as of this encounter Visit Diagnoses Not on filedocumented in this encounter"
--- OUTSIDE RECORDS SUMMARY | ~2020-07-29 | XMS | Encounter Summary ---
Demographics + + + | Address | [address] | | | [place] [address] | + + + | Home Phone [...] [place] | | | | | [address] | | + + + + + Care Team Providers + +------+ + | Care Classroom Technology Coach Name | Role | Phone | + [...] | | 2020 | | Transplant at [facility] | MD Patricia [address] [facility] | results) | | | | [address] | [address] | | | | | [facility] | [place], [place] | | | | | and [place], | [address] | | | | | [facility] | [phone] | | | | | [place], [place] | | | | | | [address] | | | | | | [phone] | | | +--------+ + + + [...] | | 2019 | [place] | | [address] | | | | | | [facility] | | | | | | [place], [place] | | | | | | [address] | | | | | | [phone] | | | | | | | | +--------+ + + + + | 09/27/ | Telephone-S | Liver Transplant | Vimal Crowe MD | | 2019 | cheduled | | [address] | | | | | | [place], | | | | | | [place] [address] | | | | | | [phone] | | | | | | | [...] [place] | | | | | | [address] | | | | | | [phone] | | | | | | | | +--------+ + + + + documented as of this encounter Visit Diagnoses Not on filedocumented in this encounter"
--- OUTSIDE RECORDS SUMMARY | ~2020-07-29 | XMS | Encounter Summary ---
Demographics + + + | Address | [address] | | | [place] [address] | + + + | Home Phone [...] [place] | | | | | [address] | | + + + + + Care Team Providers + +------+ + | Care Adobe Flex Developer Name | Role | Phone | + +------+ + | Sharon David MD | PCP | | + +------+ + Encounter Details +--------+ + + + + | Date | Type | Department | Care Team | Description | +--------+ + + + + | 03/08/ | Abstract | Clinical | Vimal Crowe MD | | | 2019 | | Transplant Services | [address] | | | | | [address] | [address] [place], | | | | | [place], | [place] [address] | | | | | [place] [address] | [phone] | | | | | [phone] | | | +--------+ + + + [...] Rd | | | | | | [place], [place] | | | | | | [address] | | | | | | [phone] | | | | | | | | +--------+ + + + + | 09/27/ | Telephone-S | Liver Transplant | Vimal Crowe MD | | | 2019 | [place] | | [address] | | | | | | [facility] [address] [place], | | | | | | [place] [address] | | | | | | [phone] | | | | | | | | +--------+ + + + + | 10/03/ | Appointment | Cardiology | | | | 2019 | | | | | +--------+ + + + + | 10/03/ | Office | Cardiology | Cyril Samuel | | | 2019 | Visit | Darren Gomez MD [address] | | | | | | [address] | | | | | | [place], [place] | | | | | | [address] | | | | | | [phone] | | | | | | | | +--------+ + + + + documented as of this encounter Procedures + +--------+ + + + | Procedure Name | Priori | Date/Time | Associated Diagnosis | Comments | | | ty | | | | + +--------+ + + + | LIVER TRANSPLANT | Routin | 03/07/2020 | | Results for this | | POST PANEL (EXT | e | 6:42 AM | | procedure are in the | | RESULTS) | | PDT | | results section. | + +--------+ + + + documented in this encounter Results LIVER TRANSPLANT POST PANEL (EXT RESULTS) (03/07/2020 6:42 AM PDT) + + + + + [...] + + + | GLUCOSE, | 210 (A) | 65 - 110 mg/dL | [...] + + + + | CREATININE | 2.16 | mg/dL | [facility] | | | [...] + | ALK PHOS | 67 | U/L | [facility] | | | [...] + + | URIC ACID, | 8.1 | mg/dL | [facility] | | | [...] + + + + | HEMATOCRIT | 31.3 | % | [facility] | | | | | | LAB - | | | | | | [place] | | + + + + + + | HEMOGLOBIN | 10.9 (A) | 13.5 - 17.5 | [facility] [...] [address] | [place] | [phone] | | [place] | | | | + + + + + documented in this encounter Visit Diagnoses Not on filedocumented in this encounter"
--- OUTSIDE RECORDS SUMMARY | ~2020-07-29 | XMS | Encounter Summary ---
Demographics + + + | Address | [address] | | | [place] [address] | + + + | Home Phone [...] [place] | | | | | [address] | | + + + + + Care Team Providers + +------+ + | Care Auto Winder Name | Role | Phone | + +------+ + | Sharon David MD | PCP | | + +------+ + Encounter Details +--------+ + + + + | Date | Type | Department | Care Team | Description | +--------+ + + + + | 02/06/ | Pharmacy | [facility] | | | | 2020 | Visit | [address] | | | | | | [address] | | | | | | [place] [address] | | | | | | [phone] | | | +--------+ + + + [...] [place] | | | | | | [address] | | | | | | [phone] | | | | | | | | +--------+ + + + + | 09/27/ | Telephone-S | Liver Transplant | Vimal Crowe MD | | | 2019 | [place] | | [address] | | | | | | [address], | | | | | | [place] [address] | | | | | | [phone] | | | | | | | [...] Rd | | | | | | [place] | | | | | | [address] | | | | | | [phone] | | | | | | | | +--------+ + + + + documented as of this encounter Visit Diagnoses Not on filedocumented in this encounter"
--- OUTSIDE RECORDS SUMMARY | ~2020-07-29 | XMS | Encounter Summary ---
Demographics + + + | Address | [address] | | | [place] [address] | + + + | Home Phone [...] [place] | | | | | [id number] | | + + + + + Care Team Providers + +------+ + | Care Food Science Technician Name | Role | Phone | [...] | [address] | [address] [place], | | | | | [place], | [place] [address] | | | | | [place] [address] | [phone] | | | | | [phone] | | | +--------+ + + + [...] Rd | | | | | | [place], [place] | | | | | | [address] | | | | | | [phone] | | | | | | | | +--------+ + + + + | 09/27/ | Telephone-S | Liver Transplant | Vimal Crowe MD | | | 2019 | [place] | | [address] | | | | | | [facility] [address] [place], | | | | | | [place] [address] | | | | | | [phone] | | | | | | | | +--------+ + + + + | 10/03/ | Appointment | Cardiology | | | | 2019 | | | | | +--------+ + + + + | 10/03/ | Office | Cardiology | Cyril Samuel | | | 2019 | Visit | Darren Gomez MD [address] | | | | | | [address] | | | | | | [place], [place] | | | | | | [address] | | | | | | [phone] | | | | | | | [...] [address] | [place] | [phone] | | [place] | | | | + + + + + documented in this encounter Visit Diagnoses Not on filedocumented in this encounter"
--- OUTSIDE RECORDS SUMMARY | ~2020-07-29 | XMS | Encounter Summary ---
Demographics + + + | Address | [address] | | | [place] [address] | + + + | Home Phone [...] [place] | | | | | [address] | | + + + + + Care Team Providers + +------+ + | Care Co Chairman Name | Role | Phone | + +------+ + | Sharon David MD | PCP | | + +------+ + Encounter Details +--------+ + + + + | Date | Type | Department | Care Team | Description | +--------+ + + + + | 06/21/ | Pharmacy | [facility] | | | | 2020 | Visit | [address] | | | | | | [address] | | | | | | [place] [address] | | | | | | [phone] | | | +--------+ + + + [...] Rd | | | | | | [place], [place] | | | | | | [address] | | | | | | [phone] | | | | | | | | +--------+ + + + + | 09/27/ | Telephone-S | Liver Transplant | Vimal Crowe MD | | | 2019 | [place] | | [address] | | | | | | [address], | | | | | | [place] [address] | | | | | | [phone] | | | | | | | [...] Rd | | | | | | [place] | | | | | | [address] | | | | | | [phone] | | | | | | | | +--------+ + + + + documented as of this encounter Visit Diagnoses Not on filedocumented in this encounter"
--- OUTSIDE RECORDS SUMMARY | ~2020-07-29 | XMS | Encounter Summary ---
Demographics + + + | Address | [address] | | | [place] [address] | + + + | Home Phone [...] [place] | | | | | [address] | | + + + + + Care Team Providers + +------+ + | Care Chief Procurement Officer Name | Role | Phone | + +------+ + | Sharon David MD | PCP | | + +------+ + Encounter Details +--------+ + + + + | Date | Type | Department | Care Team | Description | +--------+ + + + + | 05/17/ | Documentati | Nephrology & | Angélica Chao, | | | 2020 | on | Hypertension at [facility] | [address] | | | | | [address] | [address] | | | | | Loop Physician's | [place], [place] | | | | | [address], [facility] floor | [address] | | | | | [place], [place] | [phone] | | | | | [address] | | | | | | [phone] | | | +--------+ + + + [...] Rd | | | | | | [place], [place] | | | | | | [address] | | | | | | [phone] | | | | | | | | +--------+ + + + + | 09/27/ | Telephone-S | Liver Transplant | Vimal Crowe MD | | | 2019 | c[place] | | [address] | | | | | | [facility] [address] [place], | | | | | | [place] [address] | | | | | | [phone] | | | | | | | [...] Rd | | | | | | [place], [place] | | | | | | [address] | | | | | | [phone] | | | | | | | | +--------+ + + + + documented as of this encounter Visit Diagnoses Not on filedocumented in this encounter"
--- OUTSIDE RECORDS SUMMARY | ~2020-07-29 | XMS | Encounter Summary ---
Demographics + + + | Address | [address] | | | [place] [address] | + + + | Home Phone [...] [place] | | | | | [address] | | + + + + + Care Team Providers + +------+ + | Care Mold Forms Builder Name | Role | Phone | + +------+ + | Sharon David MD | PCP | | + +------+ + Encounter Details +--------+ + + + + | Date | Type | Department | Care Team | Description | +--------+ + + + + | 05/20/ | MyChart | [facility] | Tyson Bellamy, | RE: Steffen Duran | | 2019 | Encounter | Clinics at S | MD [address] | | | | | [place] | [address] [place], | | | | | [facility] | [place] [address] | | | | | [facility], | [phone] | | | | | [facility] | | | | | | [place], [place] | | | | | | [address] | | | | | | [phone] | | | +--------+ + + + [...] Rd | | | | | | [place], [place] | | | | | | [address] | | | | | | [phone] | | | | | | | | +--------+ + + + + | 09/27/ | Telephone-S | Liver Transplant | Vimal Crowe MD | | | 2019 | [place] | | [address] | | | | | | [facility] [address] [place], | | | | | | [place] [address] | | | | | | [phone] | | | | | | | [...] Rd | | | | | | [place], [place] | | | | | | [address] | | | | | | [phone] | | | | | | | | +--------+ + + + + documented as of this encounter Visit Diagnoses Not on filedocumented in this encounter"
--- OUTSIDE RECORDS SUMMARY | ~2020-07-29 | XMS | Encounter Summary ---
Demographics + + + | Address | [address] | | | [place] [address] | + + + | Home Phone [...] [place] | | | | | [address] | | + + + + + Care Team Providers + +------+ + | Care Director Nurses' Registry Name | Role | Phone | + +------+ + | Sharon David MD | PCP | | + +------+ + Encounter Details +--------+ + + + + | Date | Type | Department | Care Team | Description | +--------+ + + + + | 10/14/ | Pharmacy | [facility] | | | | 2018 | Visit | [facility] | | | | | | [address] | | | | | | Loop [place], [place] | | | | | | [address] | | | | | | [phone] | | | +--------+ + + + [...] Rd | | | | | | [place], [place] | | | | | | [address] | | | | | | [phone] | | | | | | | | +--------+ + + + + | 09/27/ | Telephone-S | Liver Transplant | Vimal Crowe MD | | | 2019 | c[place] | | [address] | | | | | | [facility] [place], | | | | | | [place] [address] | | | | | | [phone] | | | | | | | [...] Rd | | | | | | [place], [place] | | | | | | [address] | | | | | | [phone] | | | | | | | | +--------+ + + + + documented as of this encounter Visit Diagnoses Not on filedocumented in this encounter"
--- OUTSIDE RECORDS SUMMARY | ~2020-07-29 | XMS | Encounter Summary ---
Demographics + + + | Address | [address] | | | [place] [address] | + + + | Home Phone [...] [place] | | | | | [address] | | + + + + + Care Team Providers + +------+ + | Care Order Processing Specialist Name | Role | Phone | + +------+ + | Sharon David MD | PCP | | + +------+ + Reason for Visit + +--------+ + | Reason | Onset | Comments | | | Date | | + +--------+ + | Evaluation of | 09/11/ | | | response to | 2018 | | | medications | | | + +--------+ + Encounter Details +--------+ + + + + | Date | Type | Department | Care Team | Description | +--------+ + + + + | 09/11/ | Documentati | Liver Transplant | Dileep Lee, | Evaluation of | | 2019 | on | at [facility] [address] | PharmD [address] | response to | | | | [address] | [facility] | medications | | | | Physician's | [place] [address] | | | | | Pavilion, 2nd floor | [phone] | | | | | [facility] [place] | | | | | | [address] | | | | | | [phone] | | | +--------+ + + + [...] Telephone Encounter - Dileep Lee PharmD - 09/11/2019 10:12 AM PST Pharmacy Services: Liver Transplant Pharmacist Evaluation Medication changes: Valcyte and TMP/SMZ were adjusted for renal function Prednisone per taper to 10 mg per day Mg Oxide increased to 2 tablets twice a day. Steffen Duran is a 54 year old [...] Immunosuppression: see Medication list Prophylaxis: Valcyte, TMP/SMX, Diabetes: blood sugars in appropriate range Hypertension: none Osteoporosis: continue supplemental calcium with vitamin D and plan for a bone scan at 6 mo nths post transplant Hypomagnesemia: continue supplemental magnesium replacement Fluid status: stop HD X 8 days, good U/O Renal: Scr 1.8 Vitals: There were no vitals taken for [...] (HCC) Liver transplant status (HCC) Pharmacy Preferences: [facility] [address] [place] [address] Hours: 8am-9pm Mon-fri; 9-5:30pm Sat-sun E-Prescribing: Yes E-Prescribing Control Substances: Yes [facility] [address] [place] [address] Hours: 9am-7pm Mon-fri / 9am-6pm Sat / Closed Sun E-Prescribing: Yes E-Prescribing Control Substances: Yes [facility] [address] [facility] Room [address] [place] [address] Hours: 8am-6pm Mon-fri E-Prescribing: Yes E-Prescribing Control Substances: Yes [facility]. [address] [place] [address] Hours: 8am-430pm Sat-saturday/closed Sat&sun E-Prescribing: Yes E-Prescribing [...] 2 tablets by mouth once daily at be dtime. Indications: osteoporosis prevention CHLORHEXIDINE GLUCONATE 0.12 % MOUTHWASH Use cotton swab to dab chlorhexdine and apply gent ly to wound. CHOLECALCIFEROL (VITAMIN D3) 2,000 UNIT TABLET Take [...] breakthrough pain. PREDNISONE 5 MG TABLET Take 2 tablets by mouth once daily. Indications: liver transplant re jection prevention QUETIAPINE 25 MG TABLET Take 0.5 tablets by mouth once daily at bedtime. TACROLIMUS 1 MG CAPSULE Take 4 capsules by mouth two times daily. Indications: liver transp lant rejection prevention SULFAMETHOXAZOLE 400 MG-TRIMETHOPRIM 80 MG TABLET Take 1 tablet by mouth once daily. Indica tions: pneumonia prevention VALGANCICLOVIR 450 MG TABLET Take 1 tablet by mouth once daily. Indications: viral infectio n prevention FK506 Date Value Ref Range Status 09/10/2019 9.9 5.0 - 15.0 ng/mL Final 09/07/2019 5.2 5.0 - 15.0 ng/mL Final 09/03/2019 6.9 5.0 - 15.0 ng/mL Final 2. Electrolytes -Vitamin D -Multivitamin -Calcium -Phosphate level: PO4 Date Value Ref Range Status 09/10/2019 3.9 2.4 - 4.7 mg/dL Final -Magnesium level: MG Date Value Ref Range Status 09/10/2019 1.5 (L) 1.6 - 2.6 mg/dL Final 3. Vitals Pain: well controlled Wt Readings from Last 1 Encounters: 09/11/19 102.1 kg (225 lb) Ht Readings from Last 1 Encounters: 09/11/19 71" Last 1 Encounter BMI Readings: Date BMI 09/11/2019 31.38 kg/m2 Labs/vitals: Recent Labs 09/10/19 0801 WBC 4.57 HB 7.7* HCT 24.9* PLT 127* Recent Labs 09/10/19 0801 K 4.9 BUN 31* CR 1.80* MG 1.5* CA 8.7 PO4 3.9 TBILI 0.7 AST 10 ALT 19 Recent Labs 09/10/19 0801 FK506 9.9 Medication management: all medications were reviewed for [...] questions regarding this information contact pharmacy, pager #[phone] Thank you, Dileep Lee, PharmD, [facility] Clinical Pharmacist documented in this en counter Plan of Treatment +--------+ + + + + | Date | Type | Specialty | Care Team | Description | +--------+ + + + + | 08/08/ | Telephone-S | Nephrology | Angélica Chao, | | | 2019 | [place] | | [address] [facility] | | | | | | [address] | | | | | | [place], [place] | | | | | | [address] | | | | | | [phone] | | | | | | | | +--------+ + + + + | 09/27/ | Telephone-S | Liver Transplant | Vimal Crowe MD | | | 2019 | [place] | | [address] | | | | | | [address] | | | | | | [place] [address] | | | | | | [phone] | | | | | | | | +--------+ + + + + | 10/03/ | Appointment | Cardiology | | | | 2019 | | | | | +--------+ + + + + | 10/03/ | Office | Cardiology | Cyril Samuel | | | 2019 | Visit | | MD Patricia [address] | | | | | | [address] | | | | | | [place], [place] | | | | | | [address] | | | | | | [phone] | | | | | | | | +--------+ + + + + documented as of this encounter Visit Diagnoses Not on filedocumented in this encounter
--- OUTSIDE RECORDS SUMMARY | ~2020-07-29 | XMS | Encounter Summary ---
[...] [place] | | | | | [address] | | + + + + + Care Team Providers + +------+ + | Care Ore Trimmer Name | Role | Phone | + [...] Rd | | | | | | [place], [place] | | | | | | [address] | | | | | | [phone] | | | | | | | | +--------+ + + + + | 09/27/ | Telephone-S | Liver Transplant | Vimal Crowe MD | | | 2019 | cheduled | | [address] | | | | | | [address], | | | | | | [place] [address] | | | | | | [phone] | | | | | | | [...] Rd | | | | | | [place], [place] | | | | | | [address] | | | | | | [phone] | | | | | | | | +--------+ + + + + documented as of this encounter Visit Diagnoses Not on filedocumented in this encounter"
--- OUTSIDE RECORDS SUMMARY | ~2020-07-29 | XMS | Encounter Summary ---
Demographics + + + | Address | [address] | | | [place] [address] | + + + | Home Phone [...] [place] | | | | | [address] | | + + + + + Care Team Providers + +------+ + | Care Powdered Metal Supervisor Name | Role | Phone | + +------+ + | Sharon David MD | PCP | | + +------+ + Encounter Details +--------+ + + + + | Date | Type | Department | Care Team | Description | +--------+ + + + + | 02/18/ | Pharmacy | [facility] | | | | 2020 | Visit | [address] | | | | | | [address] | | | | | | [place] [address] | | | | | | [phone] | | | +--------+ + + + [...] Rd | | | | | | [place], [place] | | | | | | [address] | | | | | | [phone] | | | | | | | | +--------+ + + + + | 09/27/ | Telephone-S | Liver Transplant | Vimal Crowe MD | | | 2019 | cheduled | | [address] | | | | | | [address], | | | | | | [place] [address] | | | | | | [phone] | | | | | | | [...] Rd | | | | | | [place] | | | | | | [address] | | | | | | [phone] | | | | | | | | +--------+ + + + + documented as of this encounter Visit Diagnoses Not on filedocumented in this encounter"
--- OUTSIDE RECORDS SUMMARY | ~2020-07-29 | XMS | Encounter Summary ---
Demographics + + + | Address | [address] | | | [place] [address] | + + + | Home Phone [...] [place] | | | | | [address] | | + + + + + Care Team Providers + +------+ + | Care Medical Artist Name | Role | Phone | + +------+ + | Sharon David MD | PCP | | + +------+ + Reason for Visit + +--------+ + | Reason | Onset | Comments | | | Date | | + +--------+ + | Transplant Status | 07/20/ | | | Change | 2019 | | + +--------+ + Encounter Details +--------+ + + + + | Date | Type | Department | Care Team | Description | +--------+ + + + + | 07/20/ | Telephone | Clinical | Delmy Pollock, | Transplant Status | | 2019 | | Transplant Services | RN [address] | Judith | | | | [address] | [facility] [address] | | | | | [place], | [place], [place] | | | | | [place] [address] | [address] | | | | | [phone] | | | +--------+ + + + [...] Telephone Encounter - Delmy Pollock RN - 07/20/2019 2:33 PM PDTDr. Crowe to review. I was called by Dr. Rodriguez to make patient Status 7 for liver transplant; too sick for transpl ant at this time. DONE P DTdocumented in this encounter Plan of Treatment +--------+ + + + + | Date | Type | Specialty | Care Team | Description | +--------+ + + + + | 08/08/ | Telephone-S | Nephrology | Angélica Chao, | | | 2019 | [place] | | [address] | | | | | | [address] | | | | | | [place], [place] | | | | | | [address] | | | | | | [phone] | | | | | | | | +--------+ + + + + | 09/27/ | Telephone-S | Liver Transplant | Vimal Crowe MD | | 2019 | [place] | | [address] | | | | | | [address], | | | | | | [place] [address] | | | | | | [phone] | | | | | | | | +--------+ + + + + | 10/03/ | Appointment | Cardiology | | | | 2019 | | | | | +--------+ + + + + | 10/03/ | Office | Cardiology | Cyril Samuel | | | 2019 | Visit | | MD Patricia [address] [facility] | | | | | | [address] | | | | | | [place] | | | | | | [address] | | | | | | [phone] | | | | | | | | +--------+ + + + + documented as of this encounter Visit Diagnoses Not on filedocumented in this encounter"
--- OUTSIDE RECORDS SUMMARY | ~2020-07-29 | XMS | Encounter Summary ---
Demographics + + + | Address | [address] | | | [place] [address] | + + + | Home Phone [...] [place] | | | | | [address] | | + + + + + Care Team Providers + +------+ + | Care Internet Site Designer Name | Role | Phone | + +------+ + | Sharon David MD | PCP | | + +------+ + Reason for Visit +--------+--------+ + | Reason | Onset | Comments | | | Date | | +--------+--------+ + | Other | 09/07/ | dialysis | | | 2019 | | +--------+--------+ + Encounter Details +--------+ + + + + | Date | Type | Department | Care Team | Description | +--------+ + + + + | 09/07/ | Telephone | Nephrology & | Angélica Chao, | Other (dialysis) | | 2019 | | Hypertension at | MD [address] | | | | | [place] [address] [address] | [facility] | | | | | [address] | [place], [place] | | | | | [place] [address] | [address] | | | | | [phone] | [phone] | | | | | | | [...] encounter Miscellaneous Notes Telephone Encounter - Angélica Waite - 09/08/2019 2:41 PM PSTScheduled patient for follow up appointment with Dr Chao this coming Saturday 09/15 at [facility] in the 130pm spot that was av ailable on that date per note to Dr Muller in which she advised she could see patient. Sc heduled with sister. elep alyssa Encounter - Angélica Chao MD - 09/07/2019 3:44 PM PSTReturned call. Labs as improv ed, creatinine 1.7 from 1.8. I spoke with pt's sister (primary contact, per epic) and pt fee ling well. Still significant LE edema but scrotal edema reportedly improved quite a bit, and he is "peeing all the time" (in setting of recovery). He does not need additional dialysis, based on labs. I have told pt's sister and his dialysis unit this. I will, however, work on getting him into clinic for outpt follow up. I also advised his sister that he should call if his edema gets worse instead of better. She expressed agreement with this plan. Angélica Chao MD [facility] Division of Nephrology and Hypertension Office tel: [phone] P M PSTTelephone Encounter - Angélica Waite - 09/07/2019 2:32 PM PSTIncoming phone call from : [facility] Regarding: Dialysis center was advised that pt treatment was on hold last and Sat and a lab draw should be done today and then they would hear from Dr Chao. They are a waiting call from Dr Chao. Call back at [phone] documented in this encoun ter Plan of Treatment +--------+ + + + + | Date | Type | Specialty | Care Team | Description | +--------+ + + + + | 08/08/ | Telephone-S | Nephrology | Angélica Chao, | | | 2019 | [place] | | MD [address] | | | | | | [address] | | | | | | [place], [place] | | | | | | [address] | | | | | | [phone] | | | | | | | | +--------+ + + + + | 09/27/ | Telephone-S | Liver Transplant | Vimal Crowe MD | | | 2019 | [place] | | [address] | | | | | | [address], | | | | | | [place] [address] | | | | | | [phone] | | | | | | | | +--------+ + + + + | 10/03/ | Appointment | Cardiology | | | | 2019 | | | | | +--------+ + + + + | 10/03/ | Office | Cardiology | Cyril Samuel | | | 2019 | Visit | | MD [address] | | | | | | [address] | | | | | | [place] | | | | | | [address] | | | | | | [phone] | | | | | | | | +--------+ + + + + documented as of this encounter Visit Diagnoses Not on filedocumented in this encounter
--- OUTSIDE RECORDS SUMMARY | ~2020-07-29 | XMS | Encounter Summary ---
Demographics + + + | Address | [address] | | | [place] [address] | + + + | Home Phone [...] [place] | | | | | [address] | | + + + + + Care Team Providers + +------+ + | Care Industrial Recruiter Name | Role | Phone | + +------+ + | Sharon David MD | PCP | | + +------+ + Reason for Visit Office Visit - E/M Services (Routine) + +--------+ + + + + | Status | Reason | Specialty | Diagnoses / | Referred By | Referred To | | | | | Procedures | Contact | Contact | + +--------+ + + + + | Authorized | | Liver | Diagnoses | Frankie | [facility] | | | | Transplant | Liver | Sharon | Coord Liver | | | | | transplant | MD Lei | [address] [facility] | | | | | status | [address] | | | | | Procedures | [address] | [address] [place], | | | | | [place] | [place], | [place] | | | | | OFFICE/OUTPT | [place] [address] | [address] | | | | | | Phone: | Phone: | | | | | OSIRISJOSE ANGEL SABA | [phone] | [phone] | | | | | VL IV | Fax: | Fax: | | | | | | [phone] | [phone] | + +--------+ + + + + Encounter Details +--------+ + + + + | Date | Type | Department | Care Team | Description | +--------+ + + + + | 07/26/ | Telephone-S | Liver Transplant | Vimal Crowe MD | | | 2020 | cheduled | at [facility] [address] | [address] | | | | | [address] | [address] [place], | | | | | Physician's | [place] [address] | | | | | Pavilion, 2nd floor | [phone] | | | | | [place], [place] | | | | | | [address] | | | | | | [phone] | | | +--------+ + + + [...] documented as of this encounter Progress Notes Vimal Crowe MD - 07/26/2020 10:20 AM PDT Telephone Visit: Post liver transplant Chief complaint: Liver transplant follow-up History of present illness/Interval history: Steffen Duran is a 55 year old male who underwent a liver transplant foralcohol ci rrhosison 08/16/2019. States is doing well. Denies any jaundice, bleeding, ascites or confusion. Intermittent fee t edema worse when on feet for longer periods of time. BP running on higher side per pt- upt o 170s at times and has been put on bp meds by local cards. Gets dyspnea/chest pressure on e xertion though improved from a month ago. Able to sleep flat on bed at night. Recent EF down to the 30s Urinating normal per pt. Followed by renal and has appt upcoming this afternoon. On fludoco rt. ITX: FK 11/21, MMF 250 mg bid Prior hx: Pre-operatively he had a prolong admission complicated [...] of prednison e and adjustment in medication. PCP Dr. David [phone] ([facility]) Past medical history Post-Transplant Dx 1. History of alcoholic cirrhosis 2. Liver transplant- Date 08/16/2019 - Immunosuppression regimen-tacrolimus 2, trough goals of 4-6, MMF restarted at 250 mg bi d- previously has been held secondary to significant cytopenia and prednisone stopped due to neuro side effect - Complications-renal dysfunction requiring dialysis post txp, Cr still up - Liver biopsy: Allograft biopsy 08/16/2019 at time of transplant: Liver with minimal less than 1% macroves icular steatosis, no evidence of fibrosis - Prophylaxis-CMV donor negative/recipient positive 3. Secondary Dx - Renal insufficiency 4. Social history Moving to [place]. Denies any current alcohol smoking or recreational drug use PAST SURGICAL HISTORY: OLT 08/16/2019 as above 20 years R leg fx FAMILY HISTORY: no liver disease Current Outpatient Medications Medication Sig Alcohol Swabs topical pads, medicated Apply 1 each to affected area five times daily. U se as directed. amiodarone 200 mg oral tablet Take 1 tablet by mouth once daily. aspirin EC 325 mg oral tablet,delayed [...] tablet by mouth once daily with breakfast. insulin aspart U-100 100 unit/mL (3 mL) subcutaneous insulin pen Inject per sliding sca le four times daily. Max daily dose 40 units. For blood sugar between 151-200: 2 units; 201-250: 4 units; 251-300: 6 units 301-350: 8 units. >350: 10 units. (Short Acting Insulin). insulin glargine 100 unit/mL (3 mL) subcutaneous insulin pen Inject 20 Units under the skin (SUBC) once daily at bedtime. (Long acting insulin). Insulin [place] (Disposable) (COMFORT EZ PEN NEEDLES) 31 gauge x 5/16" miscellaneous (m isc) needle Use as directed for 5 insulin injections per day. isosorbide dinitrate 20 mg oral tablet Take 20 mg by mouth three times daily before farnaz ls. lancets (FREESTYLE LANCETS) 28 gauge miscellaneous (misc) [...] tablet by mouth once daily at bedtime. mycophenolate (CELLCEPT) 250 mg oral capsule Take 2 capsules by mouth two times daily. Take with food. patiromer 8.4 gram oral powder in packet Mix 1 packet and take orally three times weekl y (on Saturday, Saturday and Saturday). sodium polystyrene (KAYEXALATE) oral powder Take 30 grams now and 30 grams tonight Joceline cations: high levels of potassium in the blood tacrolimus 0.5 mg oral capsule Take 6 capsules in the morning and 4 capsules in the luis manuel sanjeev. Indications: liver transplant rejection prevention No current facility-administered medications for this visit. Physical: N/A Labs: Chemistries: Last 72 Hours (or 3 [...] Lab Results Component Value Date FK506 pend 07/25/2020 Assessment: Steffen Duran is a 54 year old male who underwent a liver transplant foralcohol ci rrhosison 08/16/2019. #Status post OLT 08/16/2019 for alcoholic cirrhosis :His post operative course wascompl icated byrenal dysfunctionrequiring dialysis,andvolume overload. He was then admitt ed from 10/12-10/27 for failure to thrive, SVT, and KAR on CKD. Most recently, with dyspnea/ch est pressure on exertion- TTE 35% EF- seen by cards locally and has follow up with [facility] upco lucita. Liver allograft appears to be functioning well and liver panel normal. FK trough from yesterday pending. Goal FK 4-6. Cellcept had been held due to leukopenia but now being off ov valcyte has improved so had restarted at 250 mg bid. # Recent EF down to the 35%: Followed by local cards and [facility] cards appt coming up 0 # CKD: Followed by renal #Leukopenia: Resolved. 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 Recommend follow-up with local hematology. Summary of recommendations 1. Continue tacrolimus at 2/ and MMF 250 mg bid. Follow up FK trough from yesterday- goal 4-6- keeping closer to 4, will see if room to go down further. 2. Follow up with cards recs 3.Continue to follow up with hematology and nephrology as outpatient 4. Yearly flu vaccine and COVID-19 precautions discussed F/u in 8 weeks Thank you for allowing me to participate in the care of Mr. Duran. Please call with any qu estions. Sincerely, Vimal Crowe MD Hydrogenation Still Operatorbarrel rifler hook [facility] Hepatology Patient agrees to a telephone encounter for today's visit. Time spent on the telephone encounter 32 mins including call and review of chart and coordi nation of care. The patient's encounter was accomplished via a telphone call today due to COVID-19 precauti onary measures to limit the patient's unnecessary exposure. documented in this enc ounter Plan of [...] [address] | | | | | | [place], [place] | | | | | | [address] | | | | | | [phone] | | | | | | | | +--------+ + + + + | 09/27/ | Telephone-S | Liver Transplant | Vimal Crowe MD | | 2019 | cheduled | | [address] | | | | | | [address], | | | | | | [place] [address] | | | | | | [phone] | | | | | | | [...] [place] | | | | | | [address] | | | | | | [phone] | | | | | | | | +--------+ + + + + documented as of this encounter Visit Diagnoses Not on filedocumented in this encounter
--- OUTSIDE RECORDS SUMMARY | ~2020-07-29 | XMS | Encounter Summary ---
Demographics + + + | Address | [address] | | | [place] [address] | + + + | Home Phone [...] [place] | | | | | [address] | | + + + + + Care Team Providers + +------+ + | Care Electrical Line Worker Name | Role | Phone | + +------+ + | Sharon David MD | PCP | | + +------+ + Encounter Details +--------+ + + + + | Date | Type | Department | Care Team | Description | +--------+ + + + + | 03/09/ | MyChart | [facility] | Vimal Crowe MD | RE: Steffen Duran | | 2019 | Encounter | [facility] [address] | [address] | | | | | [address] | [facility] [address] [place], | | | | | for Health and | [place] [address] | | | | | Healing, [address] | [phone] | | | | | [place], [place] | | | | | | [address] | | | | | | [phone] | | | +--------+ + + + [...] Telephone Encounter - Jaquelin Levy RN - 03/31/2019 8:31 AM PDTLTX scheduled fo r 04/21& 04/22/2019. If Dr. Crowe were to have recommendations prior to that we would call them back. elephone Encounter - Jaquelin Levy RN - 03/25/2019 6:32 AM PDTNephrology if following patient regardi ng lasix. LTX referral in process. elephone Encounter - Jaquelin Levy RN - 03/19/2019 3:19 PM PDT From: Vimal Crowe MD Sent: 03/19/2019 3:07 PM To: JAYDE Downey, Referral to LT placed. I sent a message to renal regarding going down on lasix 20 mg bid- w ill see what they say documented in this encounter Plan of Treatment [...] Rd | | | | | | [place], [place] | | | | | | [address] | | | | | | [phone] | | | | | | | | +--------+ + + + + | 09/27/ | Telephone-S | Liver Transplant | Vimal Crowe MD | | | 2019 | [place] | | [address] | | | | | | [place], | | | | | | [place] [address] | | | | | | [phone] | | | | | | | [...] [place] | | | | | | [address] | | | | | | [phone] | | | | | | | | +--------+ + + + + documented as of this encounter Visit Diagnoses Not on filedocumented in this encounter"
--- OUTSIDE RECORDS SUMMARY | ~2020-07-29 | XMS | Encounter Summary ---
Demographics + + + | Address | [address] | | | [place] [address] | + + + | Home Phone [...] [place] | | | | | [address] | | + + + + + Care Team Providers + +------+ + | Care Paint Roller Winder Name | Role | Phone | + +------+ + | hSaron David MD | PCP | | + +------+ + Encounter Details +--------+ + + + + | Date | Type | Department | Care Team | Description | +--------+ + + + + | 06/02/ | Pharmacy | [facility] | | | | 2020 | Visit | [address] | | | | | [address] | | | | | | [place] [address] | | | | | | [phone] | | | +--------+ + + + [...] Rd | | | | | | [place], [place] | | | | | | [address] | | | | | | [phone] | | | | | | | | +--------+ + + + + | 09/27/ | Telephone-S | Liver Transplant | Vimal Crowe MD | | | 2019 | cheduled | | [address] | | | | | | [address], | | | | | | [place] [address] | | | | | | [phone] | | | | | | | [...] Rd | | | | | | [place] | | | | | | [address] | | | | | | [phone] | | | | | | | | +--------+ + + + + documented as of this encounter Visit Diagnoses Not on filedocumented in this encounter"
--- OUTSIDE RECORDS SUMMARY | ~2020-07-29 | XMS | Encounter Summary ---
Demographics + + + | Address | [address] | | | [place] [address] | + + + | Home Phone [...] [place] | | | | | [address] | | + + + + + Care Team Providers + +------+ + | Care Flight Test Engineer Name | Role | Phone | [...] | [address] | [address] [place], | | | | | [place], | [place] [address] | | | | | [place] [address] | [phone] | | | | | [phone] | | | +--------+ + + + [...] Rd | | | | | | [place], [place] | | | | | | [address] | | | | | | [phone] | | | | | | | | +--------+ + + + + | 09/27/ | Telephone-S | Liver Transplant | Vimal Crowe MD | | | 2019 | [place] | | [address] | | | | | | [facility] [address] [place], | | | | | | [place] [address] | | | | | | [phone] | | | | | | | | +--------+ + + + + | 10/03/ | Appointment | Cardiology | | | | 2019 | | | | | +--------+ + + + + | 10/03/ | Office | Cardiology | Cyril Samuel | | | 2019 | Visit | Darren Gomez MD [address] | | | | | | [address] | | | | | | [place], [place] | | | | | | [address] | | | | | | [phone] | | | | | | | [...] [address] | [place] | [phone] | | [place] | | | | + + + + + documented in this encounter Visit Diagnoses Not on filedocumented in this encounter"
--- OUTSIDE RECORDS SUMMARY | ~2020-07-29 | XMS | Encounter Summary ---
Demographics + + + | Address | [address] | | | [place] [address] | + + + | Home Phone [...] [place] | | | | | [address] | | + + + + + Care Team Providers + +------+ + | Care Oil Sales And Service Rep Name | Role | Phone | + +------+ + | Sharon David MD | PCP | | + +------+ + Encounter Details +--------+ + + + + | Date | Type | Department | Care Team | Description | +--------+ + + + + | 04/21/ | Professor Of Mechanical Engineering | Clinical | Porsche Perdomo, | Alcoholic cirrhosis | | 2019 | | Transplant Services | RN [address] | of liver with | | | | [address] | [address] | ascites (HCC) | | | | [place], | [place], [place] | (Primary Dx) | | | | [place] [address] | [address] | | | | | [phone] | | | +--------+ + + + [...] Rd | | | | | | [place], [place] | | | | | | [address] | | | | | | [phone] | | | | | | | | +--------+ + + + + | 09/27/ | Telephone-S | Liver Transplant | Vimal Crowe MD | | | 2019 | [place] | | [address] | | | | | | [address] | | | | | | [place] [address] | | | | | | [phone] | | | | | | | [...] Rd | | | | | | [place], [place] | | | | | | [address] | | | | | | [phone] | | | | | | | | +--------+ + + + + documented as of this encounter Visit Diagnoses + + | Diagnosis | + + | Alcoholic cirrhosis of liver with ascites (HCC) - Primary Alcoholic cirrhosis of | | liver | + + documented in this encounter"
--- OUTSIDE RECORDS SUMMARY | ~2020-07-29 | XMS | Encounter Summary ---
Demographics + + + | Address | [address] | | | [place] [address] | + + + | Home Phone [...] [place] | | | | | [address] | | + + + + + Care Team Providers + +------+ + | Care Tobacco Sieve Operator Name | Role | Phone | + +------+ + | Sharon David MD | PCP | | + +------+ + Encounter Details +--------+ + + + + | Date | Type | Department | Care Team | Description | +--------+ + + + + | 01/19/ | Pharmacy | [facility] | | | | 2020 | Visit | [address] | | | | | | [address] | | | | | | [place] [address] | | | | | | [phone] | | | +--------+ + + + [...] [place] | | | | | | [address] | | | | | | [phone] | | | | | | | | +--------+ + + + + | 09/27/ | Telephone-S | Liver Transplant | Vimal Crowe MD | | | 2019 | cheduled | | [address] | | | | | | [address], | | | | | | [place] [address] | | | | | | [phone] | | | | | | | [...] Rd | | | | | | [place] | | | | | | [address] | | | | | | [phone] | | | | | | | | +--------+ + + + + documented as of this encounter Visit Diagnoses Not on filedocumented in this encounter"
--- OUTSIDE RECORDS SUMMARY | ~2020-07-29 | XMS | Encounter Summary ---
Demographics + + + | Address | [address] | | | [place] [address] | + + + | Home Phone [...] [place] | | | | | [address] | | + + + + + Care Team Providers + +------+ + | Care Curtain Stretcher Name | Role | Phone | + +------+ + | Sharon David MD | PCP | | + +------+ + Encounter Details +--------+ + + + + | Date | Type | Department | Care Team | Description | +--------+ + + + + | 05/30/ | Pharmacy | [facility] | | | | 2020 | Visit | [address] | | | | | | [address] | | | | | | [place] [address] | | | | | | [phone] | | | +--------+ + + + [...] [place] | | | | | | [address] | | | | | | [phone] | | | | | | | | +--------+ + + + + | 09/27/ | Telephone-S | Liver Transplant | Vimal Crowe MD | | | 2019 | cheduled | | [address] | | | | | | [address], | | | | | | [place] [address] | | | | | | [phone] | | | | | | | [...] Rd | | | | | | [place] | | | | | | [address] | | | | | | [phone] | | | | | | | | +--------+ + + + + documented as of this encounter Visit Diagnoses Not on filedocumented in this encounter"
--- OUTSIDE RECORDS SUMMARY | ~2020-07-29 | XMS | Encounter Summary ---
Demographics + + + | Address | [address] | | | [place] [address] | + + + | Home Phone [...] [place] | | | | | [address] | | + + + + + Care Team Providers + +------+ + | Care Ham Stringer Name | Role | Phone | + +------+ + | Sharon David MD | PCP | | + +------+ + Encounter Details +--------+ + + + + | Date | Type | Department | Care Team | Description | +--------+ + + + + | 05/19/ | Pharmacy | [facility] | | | | 2020 | Visit | [address] | | | | | [address] | | | | | | [place] [address] | | | | | | [phone] | | | +--------+ + + + [...] Rd | | | | | | [place], [place] | | | | | | [address] | | | | | | [phone] | | | | | | | | +--------+ + + + + | 09/27/ | Telephone-S | Liver Transplant | Vimal Crowe MD | | | 2019 | cheduled | | [address] | | | | | | [address], | | | | | | [place] [address] | | | | | | [phone] | | | | | | | [...] | | | | | | [place] | | | | | | [address] | | | | | | [phone] | | | | | | | | +--------+ + + + + documented as of this encounter Visit Diagnoses Not on filedocumented in this encounter"
--- OUTSIDE RECORDS SUMMARY | ~2020-07-29 | XMS | Encounter Summary ---
Demographics + + + | Address | [address] | | | [place] [address] | + + + | Home Phone [...] [place] | | | | | [address] | | + + + + + Care Team Providers + +------+ + | Care Baker Test Name | Role | Phone | + +------+ + | Sharon David MD | PCP | | + +------+ + Reason for Visit + +--------+ + | Reason | Onset | Comments | | | Date | | + +--------+ + | Liver Transplant | 07/18/ | prograf dose change and restart MMF | | Follow Up | 2020 | | + +--------+ + Encounter Details +--------+ + + + + | Date | Type | Department | Care Team | Description | +--------+ + + + + | 07/18/ | Documentati | Clinical | Vimal Crowe MD | Liver Transplant | | 2020 | on | Transplant Services | [address] | Follow Up (prograf | | | | [address] | [address] [place], | dose change and | | | | [place], | [place] [address] | restart MMF) | | | | [place] [address] | [phone] | | | | | [phone] | | | +--------+ + + + [...] this encounter Miscellaneous Notes Telephone Encounter - uJdie Mota RN - 07/18/2020 3:32 PM PDTFormatting of this not e might be different from the original. MD Judie Chahal RN Is his cardiac function also making it worse. For FK lets go down on FK from 3/2 to 2/1 mg and lets add MMF back on but at 250 mg bid (co unts have improved and have been stable for a bit) Lets have him recheck labs when he comes in for his cards appt on 07/21/2020 including FK le garett. Called Donell he will make the needed changes all questions answered. Repeat labs in one week documented in this encounter Plan of Treatment +--------+ + + + + | Date | Type | Specialty | Care Team | Description | +--------+ + + + + | 08/08/ | Telephone-S | Nephrology | Angélica Chao, | | 2019 | [place] | | [address] | | | | | | [address] | | | | | | [place], [place] | | | | | | [address] | | | | | | [phone] | | | | | | | | +--------+ + + + + | 09/27/ | Telephone-S | Liver Transplant | Vimal Crowe MD | | | 2019 | [place] | | [address] | | | | | | [address], | | | | | | [place] [address] | | | | | | [phone] | | | | | | | [...] Rd | | | | | | [place], [place] | | | | | | [address] | | | | | | [phone] | | | | | | | | +--------+ + + + + documented as of this encounter Visit Diagnoses Not on filedocumented in this encounter"
--- OUTSIDE RECORDS SUMMARY | ~2020-07-29 | XMS | Encounter Summary ---
Demographics + + + | Address | [address] | | | [place] [address] | + + + | Home Phone [...] [place] | | | | | [address] | | + + + + + Care Team Providers + +------+ + | Care Shirt Hemmer Name | Role | Phone | + +------+ + | Sharon David MD | PCP | | + +------+ + Reason for Visit + +--------+ + | Reason | Onset | Comments | | | Date | | + +--------+ + | Scheduling | 07/07/ | follow up w/Dr. Mia Arnold 2019 | | | 2019 | | + +--------+ + Encounter Details +--------+ + + + + | Date | Type | Department | Care Team | Description | +--------+ + + + + | 07/07/ | Telephone | [facility] | Tyson Bellamy, | Scheduling (follow | | 2019 | | Clinics at S | MD [address] | up w/Dr. Bellamy | | | | [facility] [address] | [address] [place], | 2019) | | | | [address] | [place] [address] | | | | | Health [facility]aling, | [phone] | | | | | [facility] | | | | | | [place], [place] | | | | | | [address] | | | | | | [phone] | | | +--------+ + + + [...] this encounter Miscellaneous Notes Telephone Encounter - [place] RosaTony roberts - 07/07/2019 5:23 PM PDTLeft message requesting call back to schedule patient for follow with Dr. Bellamy in 2019 documented in this encounter Plan of Treatment +--------+ + + + + | Date | Type | Specialty | Care Team | Description | +--------+ + + + + | 08/08/ | Telephone-S | Nephrology | Angélica Chao, | | | 2019 | [place] | | [address] [facility] [address] | | | | | | [address] | | | | | | [place], [place] | | | | | | [address] | | | | | | [phone] | | | | | | | | +--------+ + + + + | 09/27/ | Telephone-S | Liver Transplant | Vimal Crowe MD | | | 2019 | [place] | | [address] | | | | | | [address], | | | | | | [place] [address] | | | | | | [phone] | | | | | | | | +--------+ + + + + | 10/03/ | Appointment | Cardiology | | | | 2019 | | | | | +--------+ + + + + | 10/03/ | Office | Cardiology | Cyril Samuel | | | 2019 | Visit | | MD Patricia [address] | | | | | | [address] | | | | | | [place] | | | | | | [address] | | | | | | [phone] | | | | | | | | +--------+ + + + + documented as of this encounter Visit Diagnoses Not on filedocumented in this encounter"
--- OUTSIDE RECORDS SUMMARY | ~2020-07-29 | XMS | Encounter Summary ---
Demographics + + + | Address | [address] | | | [place] [address] | + + + | Home Phone [...] [place] | | | | | [address] | | + + + + + Care Team Providers + +------+ + | Care Color Buffer Name | Role | Phone | + +------+ + | Sharon David MD | PCP | | + +------+ + Encounter Details +--------+ + + + + | Date | Type | Department | Care Team | Description | +--------+ + + + + | 03/19/ | MyChart | Cardiology General | Chasidy Osullivan | Steffen Duran | | 2019 | Encounter | at [facility] [address] | ALEX Quintanilla [address] | | | | | [facility] | [address] [place], | | | | | Health and Healing, | [place] [address] | | | | | | [phone] | | | | | Floor [place], [place] | | | | | | [address] | | | | | | [phone] | | | +--------+ + + + [...] | | 2019 | [place] | | [address] | | | | | | [address] | | | | | | [place], [place] | | | | | | [address] | | | | | | [phone] | | | | | | | | +--------+ + + + + | 09/27/ | Telephone-S | Liver Transplant | Vimal Crowe MD | | | 2019 | [place] | | [address] | | | | | | [address], | | | | | | [place] [address] | | | | | | [phone] | | | | | | | | +--------+ + + + + | 10/03/ | Appointment | Cardiology | | | | 2019 | | | | | +--------+ + + + + | 10/03/ | Office | Cardiology | Cyril Samuel | | | 2019 | Visit | | MD Patricia [address] | | | | | | [address] | | | | | | [place] | | | | | | [address] | | | | | | [phone] | | | | | | | | +--------+ + + + + documented as of this encounter Visit Diagnoses Not on filedocumented in this encounter"
--- OUTSIDE RECORDS SUMMARY | ~2020-07-29 | XMS | Encounter Summary ---
Demographics + + + | Address | [address] | | | [place] [address] | + + + | Home Phone [...] [place] | | | | | [id number] | | + + + + + Care Team Providers + +------+ + | Care Counter Waitress/Waiter Name | Role | Phone | + +------+ + | Sharon David MD | PCP | | + +------+ + Encounter Details +--------+ + + + + | Date | Type | Department | Care Team | Description | +--------+ + + + + | 06/16/ | Pharmacy | [facility] | | | | 2020 | Visit | [address] | | | | | | [address] | | | | | | [place] [address] | | | | | | [phone] | | | +--------+ + + + [...] Rd | | | | | | [place], [place] | | | | | | [address] | | | | | | [phone] | | | | | | | | +--------+ + + + + | 09/27/ | Telephone-S | Liver Transplant | Vimal Crowe MD | | | 2019 | cheduled | | [address] | | | | | | [address], | | | | | | [place] [address] | | | | | | [phone] | | | | | | | [...] Rd | | | | | | [place] | | | | | | [address] | | | | | | [phone] | | | | | | | | +--------+ + + + + documented as of this encounter Visit Diagnoses Not on filedocumented in this encounter"
--- OUTSIDE RECORDS SUMMARY | ~2020-07-29 | XMS | Encounter Summary ---
Demographics + + + | Address | [address] | | | [place] [address] | + + + | Home Phone [...] [place] | | | | | [address] | | + + + + + Care Team Providers + +------+ + | Care Truck Driver Name | Role | Phone | + +------+ + | Sharon David MD | PCP | | + +------+ + Reason for Visit + +--------+ + | Reason | Onset | Comments | | | Date | | + +--------+ + | Liver Transplant | 01/20/ | tacrolimus dose reduction | | Follow Up | 2020 | | + +--------+ + Encounter Details +--------+ + + + + | Date | Type | Department | Care Team | Description | +--------+ + + + + | 01/20/ | Telephone | Clinical | Cecille Brunner RN | Liver Transplant | | 2019 | | Transplant Services | [address] | Follow Up | | | | [address] | [place], | (tacrolimus dose | | | | [place], | [place] [address] | reduction) | | | | [place] [address] | | | | | | [phone] | | | +--------+ + + + [...] Telephone Encounter - Cecille Brunner RN - 01/21/2020 1:55 PM PDTPer Pattie Ignacio PA-C: D/t tacrolimus level above target on 01/18/20, reduce tacrolimus dose from 4 mg BID to 3 mg BID. Left [employer] message for pt and requested reply to confirm understanding instruction s. Rx updated. documented in this encounter Plan of Treatment +--------+ + + + + | Date | Type | Specialty | Care Team | Description | +--------+ + + + + | 08/08/ | Telephone-S | Nephrology | Angélica Chao, | | 2019 | [place] | | [address] | | | | | | [address] | | | | | | [place], [place] | | | | | | [address] | | | | | | [phone] | | | | | | | | +--------+ + + + + | 09/27/ | Telephone-S | Liver Transplant | Vimal Crowe MD | | 2019 | [place] | | [address] | | | | | | [address] | | | | | [place] [address] | | | | | | [phone] | | | | | | | | +--------+ + + + + | 10/03/ | Appointment | Cardiology | | | | 2019 | | | | | +--------+ + + + + | 10/03/ | Office | Cardiology | Cyril Samuel | | | 2019 | Visit | | MD Patricia [address] | | | | | | [address] | | | | | | [place] | | | | | | [address] | | | | | | [phone] | | | | | | | | +--------+ + + + + documented as of this encounter Visit Diagnoses Not on filedocumented in this encounter"
--- OUTSIDE RECORDS SUMMARY | ~2020-07-29 | XMS | Encounter Summary ---
Demographics + + + | Address | [address] | | | [place] [address] | + + + | Home Phone [...] [place] | | | | | [address] | | + + + + + Care Team Providers + +------+ + | Care Furniture Sales Associate Name | Role | Phone | + +------+ + | Sharon David MD | PCP | | + +------+ + Reason for Visit + + + | Reason | Comments | + + + | New patient | CKD in the setting of Liver cirrhosis and chronic anemia | | consultation | | + + + Intake Referral (Urgent) +--------+--------+ + + + + | Status | Reason | Specialty | Diagnoses / | Referred By | Referred To | | | | | Procedures | Contact | Contact | +--------+--------+ + + + + | Closed | | Nephrology | Diagnoses | David, | Nht Nephro | | | | | Chronic | Lohith | [facility] [address] | | | | | kidney | MD Lei | [address] | | | | | disease, | [address] | Physician's | | | | | stage [address] | [address], | | | | | (moderate) | [place], | 3rd floor | | | | | | [place] [address] | [place], [place] | | | | | | Phone: | [address] | | | | | | [phone] | Phone: | | | | | | Fax: | [phone] | | | | | | [phone] | Fax: | | | | | | | [phone] | +--------+--------+ + + + + Encounter Details +--------+---------+ + + + | Date | Type | Department | Care Team | Description | +--------+---------+ + + + | 11/19/ | Office | Nephrology & | Alicia Canchola, | Chronic kidney | | 2019 | Visit | Hypertension at [facility] | DO [address] | disease (CKD), stage | | | | [address] | [facility] [address] | IV (severe) (HCC) | | | | [address] | [place], [place] | (Primary Dx); | | | | [address], [address] floor | [address] | Cirrhosis of liver | | | | [place], [place] | [phone] | without ascites, | | | | [address] | | unspecified hepatic | | | | [phone] | | cirrhosis type | | | | | | (HCC); CKD (chronic | | | | | | kidney disease) | | | | | | stage 3, GFR 30-59 | | | | | | ml/min (HCC) | +--------+---------+ + + + Social [...] + + + | Blood Pressure | 124/54 | 11/19/2018 12:59 PM | | | | | PST | | + + + + + | Pulse | 84 | 11/19/2018 12:59 PM | | | | | PST | | + + + + + | Temperature | 36.3 C (97.3 F) | 11/19/2018 12:59 PM | | | | | PST | | + + + + + | Respiratory Rate | - | - | | + + + + + | Oxygen Saturation | 100% | 11/19/2018 12:59 PM | | | | | PST | | + + + + + | Inhaled Oxygen | - | - | | | Concentration | | | | + + + + + | Weight | 86.8 kg (191 lb 4.8 | 11/19/2018 12:59 PM | | | | oz) | PST | | + + + + + | Height | 180.3 cm (5' 11") | 11/19/2018 12:59 PM | pt reported | | | | PST | | + + + + + | Body Mass Index | 26.68 | 11/19/2018 12:59 PM | | | | | PST | | + + + + + documented in this encounter Patient Instructions Patient Instructions Alicia Canchola DO - 11/19/2018 1:00 PM PSTLabs today: UA with microscopic and dip UPC today Renal profile Labs in 2 weeks Follow up in 3 months. documented in this encounter Progress Notes Alicia Canchola DO - 11/19/2018 1:00 PM PSTFormatting of this note might be different fr om the original. 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 +1 protein 08/20/18 Renal US was normal 06/2018 HRS is usually a diagnosis of exclusion. Hematuria is not seen in HRS. Other etiologies to consider is GN: IgA nephropathy or membranous (can be seen in patient with liver cirrhosis). If repeat urine studies showed that no proteinuria; he needs referral to urology for cystos copy. Repeat UA with micro and dip Obtain UPC Discussed increasing lasix from 20 mg daily to 20 mg BID. Repeat renal function in 2 weeks. Renal function appears to be stable. Awaiting Hepatology evaluation for transplant candidacy. I have discussed with the patient and family that if he is not deemed a tx candidate he melissa l not be a candidate for [facility] HE[facility] THERAPIST. Patient verbalized understanding as well as family. Addendum: got a called from hepatology if ok to do MRI with ROXANNA. Based on his recent GFR, georgette eduardo should be ok to received ROXANNA. 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 Awaiting evaluation for Liver transplant Continue lasix 20 mg BID and aldactone 100 mg daily Severe Anemia Chronic Thrombocytopenia Tansfusion dependent Underwent extensive work up including a BM biopsy without evidence of Myeloproliferative ne oplasm. The etiology of thrombocytopenia and anemia is felt to be secondary to RBCs and plts sequestration through his cirrhosis and enlarged spleen. Needs a Tx and splenectomy Has been getting trasnfusion to keep Hb>7.5 and plts Below 30,000 her hematology Followed by Dr Quevedo ([facility]) Hyponatremia: Hypervolemic hyponatremia. Na: 131; Potasium; 4.7 (Nov 17 2018) Increase lasix 20 mg BID Repeat renal panel in 2 weeks. Alicia Canchola DO, 11/19/2018 Patient seen and staffed with attending of record, Dr. Jarrett Thank you for this consultation. Please feel free to contact me with any questions or comme nts you might have. NEPHROLOGY & HYPERTENSION AT [facility] [address] Mailcode: [id number] [place] [address] Chief Complaint:No chief complaint on file. 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 He lives in [facility] [place] away from [place]. He lives by himself and has sister and m other who have been the support system but fly from [place] back and forth to check on him. He is set to be evaluated by hepatology today for transplant. He reports that he was doing fine until December of 2017 when he was hospitalized for septic s hock in the setting of multilobar pneumonia. He was incidentally found to have liver cirrhos is. Since then he has had multiple admission for anemia and volume overload. No hx of varice s. EGD and colonoscopies normal. No hx of ascites, or peritonitis. Has had hepatic encephalo tyra and chronically on lactulose Has had an echo in the past that revealed severe pulmonary hypertension but normal EF. No h x of lung disease. He does not smoke cigarettes but chews tobacco. His renal function has be en stable for the past year with serum creatinine at 1.6; likely from HRS type II. He has an extensive work for autoimmune disease and vasculitis work up all negative. Renal US no hydr onephrosis or renal mass. He has chronic hematuria and proteinuria which are typical for HRS ; especially hematuria. Admitted in September for significant volume overload. Lost 50 lbs of water weight. Pb at discharge was 180 but has been trending up to 190 as of today. On lasix 20 mg daily an judy ctone 100 mg daily. Denies chest pain, SOB, or palpitations. No dizziness. + edema. No orthopnea, or PND. No na usea, vomiting, or constipation. + diarrhea with lactulose. REVIEW OF SYSTEMS: Please see pertinent positives in HPI, above, all others negative except as noted above. Past Medical/Surgical and Fam/Soc History Past Medical History: 1.Cirrhosis of Liver 2. Ethanol for 20 years: Beers : 1 pack per day. Sober for the past 6 months. Social History: No ethanol use: Tobacco: yes; Tobacco: chews fine cut tobacco Smoking: No Recreational: No Marital status: SIn[place] Exercise: No Caffeine: yes frequency: Worked on [employer] for years Surgical History: None Family History: Cancer Grandmother: Stomach cancer Prostate Hospitalization/Major Diagnostic Procedure: adapted from PCP note. SAH: Multi Lobar pneumonia with acute respiratory Failure with hypoxia with severe sepsis. Incidental diagnosis of liver cirrhosis [facility]: Severe anemia. Acute kidney injury. 6 units of pRBCs. Splenic sequestratio n 07/17-07/24/18 [facility]: EGD and colonoscopy: no signs of bleeding. Echocardiogram.: primary hypert ension with right ventricular enlargement. Lasix 20 BID. Vasculitis work up negative. Venous ulcers changed to Keflex. Creatinine 1.6. [facility]: US abdomen-Liver steatosis. Right pleural effusion. Splenomegaly. Normal U S. No DVT. Echo: EF:60-65%. Moderate diastolic dysfunction. Moderate TR. Moderate to severe pulmonary HTN: 07/18/18 Dr: Marocytic anemia and thrombocytopenia from liver cirrhosis and splenomegaly. Recurrent Hemoglobin 6.4; 2 units pRBC. Bone marrow biopsy. 09/29/18: Acute on chronic anemia. 3 Units of PRB. MEDICATIONS: Furosemide 20 mg once day Spironolactone: 100 mg daily Lactulose: 10 mg daily ALLERGIES: Doxycycline Monohydrate: Rash PHYSICAL EXAM: Last Vitals: BP 124/54 | Pulse 84 | Temp (Src) 36.3 C (97.3 F) (Forehead) | Ht 1.803 m (5' 11") | Wt 86.8 kg (191 lb 4.8 oz) | SpO2 100% | BMI 26.68 kg/(m^2) GENERAL: No acute distress, alert and cooperative. Chronically ill appearing. HEENT/NECK: Sclera icteric. Oropharynx normal, neck without masses or LAD. CVS: S1, S2 normal, RRR, no murmurs, rubs or gallops. JVP ~9cm CHEST: Breathing unlabored, CTA bilateral, no crackles or wheeze Abdomen: Soft, not tender, not distended Extremeties: WWP, +2 pitting edema up to knees(per sister much improved) edema SKIN: No concerning rashs, warm/dry NEUROLOGICAL/PSYCHIATRIC: Slow speech but Grossly non-focal, no asterixis, normal mood/aff ect. LAB / STUDIES: I have reviewed labs in [facility]ARE [facility]. Renal US: Right Kidney: 12.4 x 9.0 x 6.5 cm. Normal echotexture with no stones, contour-deforming mas ses, or hydronephrosis. Left Kidney: 12.9 x 5.3 x 6.2 cm. Normal echotexture with no stones, contour-deforming mass es, or hydronephrosis. Bladder: Bilateral jets seen. The prevoid bladder volume was 758 cc. The postvoid bladder v olume was 194 cc. Other: The spleen measures 21.3 x 7.5 x 20.8 cm. Associated attestation - Mitch Jarrett MD - 11/20/2018 10:43 AM PSTI personally interviewe d the patient and performed the tamez elements of the physical examination. I formulated the a ssessment and plan with the resident. I agree with Dr Canchola's documentation. Dx: CKD in setting of ESLD sec to ETOH abuse Can not rule out HRS Check UA and UP/C ratio, Urine electrolytes, if positive proteinuria would need further serological testing including SPEP/UPEP/C3/C4. High risk for bleeding with kidney bx but transjugular approach could be considered.. We will review in detail previous autoimmun e work up. Ascites Anemia : transfusion dependent Edema : agree with increasing diuretic dose to BID and recheck labs in 2 weeks Hematuria and proteinuria on previous UA FU 3 m documented in this encounter Plan of Treatment +--------+ + + + + | Date | Type | Specialty | Care Team | Description | +--------+ + + + + | 08/08/ | Telephone-S | Nephrology | Angélica Chao, | | | 2019 | [place] | | [address] | | | | | | [address] | | | | | | [place], [place] | | | | | | [address] | | | | | | [phone] | | | | | | | | +--------+ + + + + | 09/27/ | Telephone-S | Liver Transplant | Vimal Crowe MD | | | 2019 | [place] | | [address] | | | | | | [address], | | | | | | [place] [address] | | | | | | [phone] | | | | | | | | +--------+ + + + + | 10/03/ | Appointment | Cardiology | | | | 2019 | | | | | +--------+ + + + + | 10/03/ | Office | Cardiology | Cyril Samuel | | | 2019 | Visit | | MD Patricia [address] | | | | | | [address] | | | | | | [place], [place] | | | | | | [address] | | | | | | [phone] | | | | | | | | +--------+ + + + + documented as of this encounter Procedures + +--------+ + + + | Procedure Name | Priori | Date/Time | Associated Diagnosis | Comments | | | ty | | | | + +--------+ + + + | UA DIPSTICK 10 DIP | Routin | 11/19/2018 | Chronic kidney | Results for this | | W/O MICRO | e | 1:56 PM | disease (CKD), stage | procedure are in the | | (AUTOMATED), POC | | PST | IV (severe) (HCC) | results section. | + +--------+ + + + | PROTEIN, URINE | Routin | 11/19/2018 | Chronic kidney | Results for this | | | e | 1:55 PM | disease (CKD), stage | procedure are in the | | | | PST | IV (severe) ([facility]) | results section. | + +--------+ + + + | CREATININE, URINE | Routin | 11/19/2018 | Chronic kidney | Results for this | | | e | 1:55 PM | disease (CKD), stage | procedure are in the | | | | PST | IV (severe) ([facility]) | results section. | + +--------+ + + + documented in this encounter Results RENAL FUNCTION SET (NA,K,CL,CO2,BUN,CREAT,GLUC,CA,PHOS,ALB ) (11/19/2018 4:51 PM PST) + + + + + + | Component | Value | Ref Range | Performed | Pathologist | | | | | At | Signature | + + + + + + | GLUCOSE, | 134 (H) | 70 - 99 [...] | | | LABORATORY | | | [facility] | | | SERVICES, | | | [...] + + + + | CHLORIDE, | 95 (L) | 97 - 108 [...] + + + + | PHOSPHORUS, | 5.1 [...] | + + + + + | [facility] | [address] | [place] [address] | | | SERVICES, CORE | [address] | | | + + + + + UA 10 DIP, POC (11/19/2018 1:56 PM PST) + + + + + + | Component | Value | Ref Range | Performed | Pathologist | | | | | At | Signature | + + + + + + | COLOR (UA | Yudy | | [facility] - | | | DIP), POC | | | [facility] | | | | | | [facility] | | | | | | OF CARE | | | | | | TESTS | | + + + + + + | APPEARANCE | Other | | [facility] - | | | (UA DIP), | | | [facility] | | | POC | | | [facility] | | | | | | OF CARE | | | | | | TESTS | | + + + + + + | LEUKOCYTES | Negative | Negative | [facility] - | | | (UA DIP), | | | [facility] | | | POC | | | [facility] | | | | | | OF CARE | | | | | | TESTS | | + + + + + + | NITRITES | Negative | Negative | [facility] - | | | (UA DIP), | | | [facility] | | | POC | | | [facility] | | | | | | OF CARE | | | | | | TESTS | | + + + + + + | UROBILINOGE | 1.0 | 0.2 - 1.0 | [facility] - | | | N (UA DIP), | | E.U./dL | [facility] | | | POC | | | [place] [place], POINT | | | | | | OF CARE | | | | | | TESTS | | + + + + + + | PROTEIN (UA | Negative | Neg - Trace | [facility] - | | | DIP), POC | | mg/dL | [facility] | | | | | | [facility], POINT | | | | | | OF CARE | | | | | | TESTS | | + + + + + + | PH (UA | 5.5 | 5.0 - 8.0 | [facility] - | | | DIP), POC | | | [facility] | | | | | | [place] POINT | | | | | | OF CARE | | | | | | TESTS | | + + + + + + | BLOOD (UA | Large (A) | Negative | [facility] - | | | DIP), POC | | | [facility] | | | | | | [place] POINT | | | | | | OF CARE | | | | | | TESTS | | + + + + + + | SPECIFIC | 1.010 | 1.005 - 1.030 | [facility] - | | | GRAVITY (UA | | | [facility] | | | DIP), POC | | | [facility] | | | | | | OF CARE | | | | | | TESTS | | + + + + + + | KETONES (UA | Negative | Negative mg/dL | [facility] - | | | DIP), POC | | | [facility] | | | | | | [facility] | | | | | | OF CARE | | | | | | TESTS | | + + + + + + | BILIRUBIN | Negative | Negative | [facility] - | | | (UA DIP), | | | [facility] | | | POC | | | [facility] | | | | | | OF CARE | | | | | | TESTS | | + + + + + + | GLUCOSE (UA | Negative | Negative - | [facility] - | | | DIP), POC | | Trace mg/dL | [facility] | | | | | | HAL[facility] [...] | [facility] | [address] | [place], [place] | | | [facility] | [address] | [address] | | | TESTS | | | | + + + + + PROTEIN, URINE (11/19/2018 1:55 PM PST) + + + + + + | Component | Value | Ref Range | Performed | Pathologist | | | | | At | Signature | + + + + + + | PROTEIN | 6 | mg/dL | [facility] | | | CONC URINE | | | LABORATORY | | | | | | SERVICES, | | | | | | CORE | | + + + + + + | PROTEIN/CRE | 0.13 (H) | <0.10 mg/mg | [facility] | | | ATININE | | | LABORATORY | | | RATIO | | | SERVICES, | | | | | | CORE | | + + + + + + | URINE | Random | | [facility] | | | INTERVAL | | | LABORATORY | | | | | | SERVICES, | | | | | | CORE | | + + + + + + | URINE | Spot [...] Performed At | + + + | Protein Reference Range: 50-80 mg/24hr At Rest <150 mg/24hr | [facility] | | Ambulatory, normal level of physical activity <250 mg/24hr | LABORATORY | | Strenuous physical activity Normal values based on 24 hour | SERVICES, CORE | | collection interval. Patient results are calculated from actual | | | collection interval and volume. | | + + + + + + + + | Performing | Address | City/State/Zipcode | Phone Number | | Organization | | | | + + + + + | [facility] | [address] | [place] [address] | | | SERVICES, CORE | [address] | | | + + + + + CREATININE, URINE (11/19/2018 1:55 PM PST) + +--------+ + + + | Component | Value | Ref Range | Performed | Pathologist | | | | | At | Signature | + +--------+ + + + | CREATININE | 46.40 | mg/dL | [facility] | | | [...] + | [facility] | [address] | [place] [address] | | | SERVICES, CORE | [address] | | | + + + + + documented in this encounter Visit Diagnoses + + | Diagnosis | + + | Chronic kidney disease (CKD), stage IV (severe) (HCC) - Primary Chronic kidney | | disease, Stage IV (severe) | + + | Cirrhosis of liver without ascites, unspecified hepatic cirrhosis type (HCC) | + + | CKD (chronic kidney disease) stage 3, GFR 30-59 ml/min Chronic kidney disease, Stage | | III (moderate) | + + documented in this encounter
--- OUTSIDE RECORDS SUMMARY | ~2020-07-29 | XMS | Encounter Summary ---
Demographics + + + | Address | [address] | | | [place] [address] | + + + | Home Phone [...] [place] | | | | | [address] | | + + + + + Care Team Providers + +------+ + | Care System Analyst Name | Role | Phone | + +------+ + | Sharon David MD | PCP | | + +------+ + Reason for Visit + +--------+ + | Reason | Onset | Comments | | | Date | | + +--------+ + | Financial Review | 03/24/ | | | | 2019 | | + +--------+ + Encounter Details +--------+ + + + + | Date | Type | Department | Care Team | Description | +--------+ + + + + | 03/24/ | Documentati | Clinical | Geoffrey Addison | Financial Review | | 2019 | on | Transplant Services | [address] | | | | | [address] | [place], | | | | | [place], | [place] [address] | | | | | [place] [address] | | | | | | [phone] | | | +--------+ + + + [...] this encounter Miscellaneous Notes Telephone Encounter - Geoffrey Addison - 03/24/2019 1:13 PM PDT.Financial Status GO This .54 y.o. patient has adequate insurance and resources for transplant surgery and post transplant care. He lives in .[place], [place] Financial Risks Identified: .None, I didn't s/w pt Insurance/Financial: [facility] Payable Representative Plan: documented in this encou nter Plan of [...] [address] | | | | | | [place], [place] | | | | | | [address] | | | | | | [phone] | | | | | | | | +--------+ + + + + | 09/27/ | Telephone-S | Liver Transplant | Vimal Crowe MD | | | 2019 | [place] | | [address] | | | | | | [facility] [place], | | | | | | [place] [address] | | | | | | [phone] | | | | | | | [...] [place] | | | | | | [address] | | | | | | [phone] | | | | | | | | +--------+ + + + + documented as of this encounter Visit Diagnoses Not on filedocumented in this encounter"
--- OUTSIDE RECORDS SUMMARY | ~2020-07-29 | XMS | Encounter Summary ---
Demographics + + + | Address | [address] | | | [place] [address] | + + + | Home Phone [...] [place] | | | | | [address] | | + + + + + Care Team Providers + +------+ + | Care Crossword Puzzle Maker Name | Role | Phone | + +------+ + | Sharon David MD | PCP | | + +------+ + Encounter Details +--------+ + + + + | Date | Type | Department | Care Team | Description | +--------+ + + + + | 05/26/ | Abstract | Urology at [facility] | Uro, Gen [address] | | | 2019 | | [address] | [address] | | | | | [place] [facility] | Road [place], [place] | | | | | and Healing, | [address] | | | | | | | | | | | [place], [place] | | | | | | [address] | | | | | | [phone] | | | +--------+ + + + [...] | 2019 | [place] | | [address] | | | | | | [address] | | | | | | [place], [place] | | | | | | [address] | | | | | | [phone] | | | | | | | | +--------+ + + + + | 09/27/ | Telephone-S | Liver Transplant | Vimal Crowe MD | | | 2019 | [place] | | [address] | | | | | | [address], | | | | | | [place] [address] | | | | | | [phone] | | | | | | | | +--------+ + + + + | 10/03/ | Appointment | Cardiology | | | | 2019 | | | | | +--------+ + + + + | 10/03/ | Office | Cardiology | Cyril Samuel | | | 2019 | Visit | | MD Patricia [address] | | | | | | [address] | | | | | | [place], [place] | | | | | | [address] | | | | | | [phone] | | | | | | | | +--------+ + + + + documented as of this encounter Visit Diagnoses Not on filedocumented in this encounter"
--- OUTSIDE RECORDS SUMMARY | ~2020-07-29 | XMS | Encounter Summary ---
Demographics + + + | Address | [address] | | | [place] [address] | + + + | Home Phone [...] [place] | | | | | [address] | | + + + + + Care Team Providers + +------+ + | Care Retail Cosmetics Sales Beauty Advisor Name | Role | Phone | + +------+ + | Sharon David MD | PCP | | + +------+ + Reason for Visit + + + | Reason | Comments | + + + | Follow-up visit | | + + + Consultation (Urgent) +--------+--------+ [...] | liver with | [address] | [facility] | | | | | ascites | [address] | [address] [place], | | | | | (HCC) | [place], [place] | [place] | | | | | Preoperative | [address] | [address] | | | | | examination | Phone: | Phone: | | | | | Internal | [phone] | [phone] | | | | | organ | Fax: | Fax: | | | | | deficiencies | [phone] | [phone] | | | | | Procedures | | | | | | | CONSULT TO | | | | | | | INFECTIOUS | | | | | | | DISEASE | | | +--------+--------+ + + + + Encounter Details +--------+---------+ + + + | Date | Type | Department | Care Team | Description | +--------+---------+ + + + | 09/11/ | Office | Liver Transplant | 3, Ltx Md | Liver replaced by | | 2019 | Visit | at [facility] [address] | [place], [place] | transplant (HCC) | | | | [address] | [address] | (Primary Dx) | | | | Physician's | | | | | | [address], [address] floor | | | | | | [place], [place] | | | | | | [address] | | | | | | [phone] | | | +--------+---------+ + + + [...] + + + | Blood Pressure | 138/83 | 09/11/2019 9:26 AM | | | | | PST | | + + + + + | Pulse | 84 | 09/11/2019 9:26 AM | | | | | PST | | + + + + + | Temperature | 37 C (98.6 F) | 09/11/2019 9:26 AM | | | | | PST | | + + + + + | Respiratory Rate | 16 | 09/11/2019 9:26 AM | | | | | PST | | + + + + + | Oxygen Saturation | 100% | 09/11/2019 9:26 AM | | | | | PST | | + + + + + | Inhaled Oxygen | - | - | | | Concentration | | | | + + + + + | Weight | 102.1 kg (225 lb) | 09/11/2019 9:26 AM | | | | | PST | | + + + + + | Height | 180.3 cm (5' 11") | 09/11/2019 9:26 AM | | | | | PST | | + + + + + | Body Mass Index | 31.38 | 09/11/2019 9:26 AM | | | | | PST [...] documented as of this encounter Progress Notes Pattie Ignacio PA-C - 09/11/2019 9:40 AM PSTFormatting of this note might be different f rom the original. 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 Pre-operatively he had a prolong admission complicated by SVT requirin g amiodarone drip, severe malnutrition, KAR/HRS, and spur cell anemia. His post operative co urse was complicated by renal dysfunction requiring dialysis, and persistent ascites/anasarc a. He was discharged with a dialysis catheter in place and tolerating intermittent HD. He unde rwent HD on 09/01 but only a partial run due to a rash that developed (purpuric rash on bila teral forearms). This was thought to be due to systemic heparin. He has not required any HD since and is planning to follow up with nephrology on 09/15/2019 Today he states that things are going well. He still is having a lot of lower extremity but it is much improved from last week and his scrotal edema is nearly resolved. He states he i s making a lot of urine without lasix. He is staying active and walking. He has a good appet ite and is eating without nausea. The leaking from the incision has stopped; ecchymosis is r esolving. He is having regular bowel movements and his pain is well controlled. Current Outpatient Medications Medication Sig Alcohol Swabs [...] day Indications: type 2 diabetes mellitus Insulin [place] (Disposable) (COMFORT EZ PEN NEEDLES) 31 gauge [...] medications for this visit. Physical: VITALS: BP 138/83 (BP Location: Right upper arm, Patient Position: Sitting) | Pulse 84 | Temp 37 C (98.6 F) (Oral) | Resp 16 | Ht 1.803 m (5' 11") | Wt 102.1 kg (225 lb) | S pO2 100% | BMI 31.38 kg/m | BSA 2.26 m GENERAL: Alert, no acute distress, well kempt. HEENT: no scleral icterus, no oral plaques or ulcers NECK: no lymphadenopathy CV: regular rate and rhythm RESP: normal work of breathing on room air, clear ABD: soft, non-tender, intact incision previous draining spots are now sealed, surrounding ecchymosis is improved Ext: large amount of edema Neuro: oriented, normal mood, grossly non-focal Labs: Chemistries: Last 72 Hours (or 3 results): Recent Labs 09/10/19 0801 NA 140 K 4.9 CL 106 BICARB 30 BUN 31* CR 1.80* CA 8.7 MG 1.5* PO4 3.9 AST 10 ALT 19 TBILI 0.7 AP 49* ALB 3.7 TP 6.1* CBC with diff last 72 hours (or 3 results) Recent Labs 09/10/19 0801 WBC 4.57 HB 7.7* HCT 24.9* PLT 127* NEUTROPERC 70.6* LYMPHPERC 20.6 MONOPERC 6.6 BASOPERC 0.9 EOSPERC 1.1 Lab Results Component Value Date FK506 9.09/10/2019 Assessment: Steffen Duran is a 54 year old male who continues to recover following liver transpl antation. His prograf level is above the target range. Plan: Immunosuppression: I personally participated in the immunosuppression and prophylaxis man agement with with patient. Continue Tacrolimus 4mg po bid, continue Azathoprine, and manjit nue Prednisone taper as described. Date: Total Dose # Tablets, 5mg Hospital Discharge - 08/29/19 20 mg 4 08/30/19 - 09/05/19 15 mg 3 09/06/19 - 09/12/19 10mg 2 09/13/19 -mcfp dose 5 mg 1 Prophylaxis: Valcyte 450 mg po daily, Fluconazole 400mg every Saturday, Sept daily Endocrinology: - Continue [id number] in the AM, and 6units in PM - Continue Lisprosliding scale four times daily Cardiology: - [id number] of ASA daily - Amiodarone 200 mg daily Fluid status: stable; patient to discuss lasix and or HD plan with nephrology Renal: continue HD as needed per outpatient nephrology; will need lasix and fluid status pl an from nephrology once HD is discontinued. Liver: stable graft funciton - no intervention necessary Wound: most of katiuska removed; will remove remain katiuska next week after labs on . Labs: 2 times per week Activity: Continue to increase activity as tolerated. Goal is 30-45 minutes per day. Contin ue 10 pound lifting restriction and hernia precuations. Return to clinic: 2 week with surgeon Authored By: Pattie Ignacio PA-C Abdominal Organ Transplant Surgery documented in this encounter Plan of Treatment +--------+ + + + + | Date | Type | Specialty | Care Team | Description | +--------+ + + + + | 08/08/ | Telephone-S | Nephrology | Angélica Chao, | | 2019 | [place] | | [address] | | | | | | [address] | | | | | | [place], [place] | | | | | | [address] | | | | | | [phone] | | | | | | | | +--------+ + + + + | 09/27/ | Telephone-S | Liver Transplant | Vimal Crowe MD | | | 2019 | [place] | | [address] | | | | | | [address] | | | | | | [place] [address] | | | | | | [phone] | | | | | | | [...] Rd | | | | | | [place], [place] | | | | | | [address] | | | | | | [phone] | | | | | | | | +--------+ + + + + documented as of this encounter Visit Diagnoses + + | Diagnosis | + + | Liver replaced by transplant (HCC) - Primary Liver replaced by transplant | + + documented in this encounter
--- OUTSIDE RECORDS SUMMARY | ~2020-07-29 | XMS | Encounter Summary ---
Demographics + + + | Address | [address] | | | [place] [address] | + + + | Home Phone [...] [place] | | | | | [address] | | + + + + + Care Team Providers + +------+ + | Care Technical Assoc Name | Role | Phone | + +------+ + | Sharon David MD | PCP | | + +------+ + Encounter Details +--------+--------+ + + + | Date | Type | Department | Care Team | Description | +--------+--------+ + + + | 08/10/ | Travel | | | | | [...] Rd | | | | | | [place], [place] | | | | | | [address] | | | | | | [phone] | | | | | | | | +--------+ + + + + | 09/27/ | Telephone-S | Liver Transplant | Vimal Crowe MD | | | 2019 | [place] | | [address] | | | | | | [address], | | | | | | [place] [address] | | | | | | [phone] | | | | | | | [...] [place] | | | | | | [address] | | | | | | [phone] | | | | | | | | +--------+ + + + + documented as of this encounter Visit Diagnoses Not on filedocumented in this encounter"
--- OUTSIDE RECORDS SUMMARY | ~2020-07-29 | XMS | Encounter Summary ---
Demographics + + + | Address | [address] | | | [place] [address] | + + + | Home Phone [...] [place] | | | | | [address] | | + + + + + Care Team Providers + +------+ + | Care Manager [employer]otive Name | Role | Phone | + [...] Description | +--------+------+ + + + | 04/21/ | Lab | Laboratory at [facility] | | Alcoholic cirrhosis | | 2019 | | [address] | | of liver with | | | | [facility] | | ascites (HCC); | | | | [address], [address] floor | | Ascites due to | | | | [place], [place] | | alcoholic cirrhosis | | | | [address] | | (HCC); Internal | | | | [phone] | | organ deficiencies; | | | | | | Preoperative | | | | | | examination | +--------+------+ + + + Social History [...] [address] | | | | | | [place], [place] | | | | | | [address] | | | | | | [phone] | | | | | | | | +--------+ + + + + | 09/27/ | Telephone-S | Liver Transplant | Vimal Crowe MD | | | 2019 | [place] | | [address] | | | | | | [address], | | | | | | [place] [address] | | | | | | [phone] | | | | | | | | +--------+ + + + + | 10/03/ | Appointment | Cardiology | | | | 2019 | | | | | +--------+ + + + + | 10/03/ | Office | Cardiology | Cyril Samuel | | | 2019 | Visit | | MD Patricia [address] | | | | | | [address] | | | | | | [place], [place] | | | | | | [address] | | | | | | [phone] | | | | | | | | +--------+ + + + + documented as of this encounter Procedures + +--------+ + + + | Procedure Name | Priori | Date/Time | Associated Diagnosis | Comments | | | ty | | | | + +--------+ + + + | MEASLES (RUBEOLA) | Routin | 04/21/2019 | Alcoholic | Results for this | | IGG | e | 8:39 AM | cirrhosis of liver | procedure [...] | + +--------+ + + + | STRONGYLOIDES IGG | Routin | 04/21/2019 | Alcoholic | Results for this | | AB, SERUM | e | 8:39 AM | cirrhosis of liver | procedure [...] + +--------+ + + + | URINE CULTURE WORKUP | Routin | 04/21/2019 | Alcoholic | Results for this | | | e | 8:39 AM | cirrhosis of liver | procedure [...] | CULTURE, URINE [facility] | Routin | 04/21/2019 | Alcoholic | Results for this | | | e | 8:39 AM | cirrhosis of liver | procedure [...] + + | PHOSPHATIDYLETHANOL | Routin | 04/21/2019 | Alcoholic | Results for this | | (PETH) | e | 8:39 AM | cirrhosis of liver | procedure [...] + +--------+ + + + | HEPATITIS A AB, IGG | Routin | 04/21/2019 | Alcoholic | Results for this | | | e | 8:39 AM | cirrhosis of liver | procedure [...] + + | HEPATITIS B SURFACE | Routin | 04/21/2019 | Alcoholic | Results for this | | AG W/REFLEX IF | e | 8:39 AM | cirrhosis of liver | procedure are in the | | INDICATED | | PDT | with ascites (HCC) [...] + | ETHYL GLUCURONIDE | Routin | 04/21/2019 | Alcoholic | Results for this | | QUANT, URINE | e | 8:39 AM | cirrhosis of liver | procedure [...] + +--------+ + + + | DIOGENES BY NISSA | Routin | 04/21/2019 | Alcoholic | Results for this | | W/REFLEX TO IFA | e | 8:39 AM | cirrhosis of liver | procedure are in the | | PATTERN & AB ID WHEN | | PDT | with ascites (HCC) | results section. | | INDICATED | | | Ascites due to | | | | | | alcoholic cirrhosis | | | | | | (HCC) Internal | | | | | | organ deficiencies | | | | | | Preoperative | | | | | | examination | | + +--------+ + + + | CBC AND AUTO DIFF | Routin | 04/21/2019 | Alcoholic | Results for this | | | e | 8:39 AM | cirrhosis of liver | procedure [...] | + +--------+ + + + | CONFIRMATORY ABO/RH | Routin | 04/21/2019 | Alcoholic | Results for this | | | e | 8:39 AM | cirrhosis of liver | procedure [...] | + +--------+ + + + | QUANTIFERON TB GOLD, | Routin | 04/21/2019 | Alcoholic | Results for this | | BLOOD | e | 8:39 AM | cirrhosis of liver | procedure [...] + | NICOTINE + | Routin | 04/21/2019 | Alcoholic | Results for this | | METABOLITE SCREEN, | e | 8:39 AM | cirrhosis of liver | procedure are in the | | URINE | | PDT | with ascites (HCC) [...] | CMV IGG AND IGM ABS, | Routin | 04/21/2019 | Alcoholic | Results for this | | SERUM | e | 8:39 AM | cirrhosis of liver | procedure [...] + + | INR | Routin | 04/21/2019 | Alcoholic | Results for this | | | e | 8:39 AM | cirrhosis of liver | procedure [...] + | CBC, WITH | Routin | 04/21/2019 | Alcoholic | Results for this | | DIFFERENTIAL | e | 8:39 AM | cirrhosis of liver | procedure [...] +--------+ + + + | DRUG | Routin | 04/21/2019 | Alcoholic | Results for this | | SCREEN,URINE;W/CONFI | e | 8:39 AM | cirrhosis of liver | procedure are in the | | RM | | PDT | with ascites (HCC) [...] | + +--------+ + + + | VARICELLA ZOSTER | Routin | 04/21/2019 | Alcoholic | Results for this | | IGG, SERUM | e | 8:39 AM | cirrhosis of liver | procedure [...] | + +--------+ + + + | MUMPS IGG AB, SERUM | Routin | 04/21/2019 | Alcoholic | Results for this | | | e | 8:39 AM | cirrhosis of liver | procedure [...] | + +--------+ + + + | HSV ANTIBODY, SERUM | Routin | 04/21/2019 | Alcoholic | Results for this | | | e | 8:39 AM | cirrhosis of liver | procedure [...] | + +--------+ + + + | PSA TOTAL, | Routin | 04/21/2019 | Alcoholic | Results for this | | SCREENING, SERUM | e | 8:39 AM | cirrhosis of liver | procedure [...] + +--------+ + + + | VITAMIN D, | Routin | 04/21/2019 | Alcoholic | Results for this | | 25-HYDROXY, SERUM | e | 8:39 AM | cirrhosis of liver | procedure [...] + +--------+ + + + | MOE LAGUNA VIRUS | Routin | 04/21/2019 | Alcoholic | Results for this | | PANEL, SERUM | e | 8:39 AM | cirrhosis of liver | procedure [...] + | ZINC, SERUM | Routin | 04/21/2019 | Alcoholic | Results for this | | | e | 8:39 AM | cirrhosis of liver | procedure [...] + +--------+ + + + | VITAMIN A, SERUM | Routin | 04/21/2019 | Alcoholic | Results for this | | | e | 8:39 AM | cirrhosis of liver | procedure [...] | + +--------+ + + + | ALPHA 1 ANTITRP | Routin | 04/21/2019 | Alcoholic | Results for this | | PHEN/LEV, SERUM | e | 8:39 AM | cirrhosis of liver | procedure [...] + | COMPLETE METABOLIC | Routin | 04/21/2019 | Alcoholic | Results for this | | SET | e | 8:39 AM | cirrhosis of liver | procedure are in the | | (NA,K,CL,CO2,BUN,CRE | | PDT | with ascites (HCC) | results section. | | AT,GLUC,CA,AST,ALT,B | | | Ascites due to | | | KEV TOTAL,ALK | | | alcoholic cirrhosis | | | PHOS,ALB,PROT TOTAL) | | | (HCC) Internal | | | | | | organ deficiencies | | | | | | Preoperative | | | | | | examination | | + +--------+ + + + | UA, DIPSTICK ONLY | Routin | 04/21/2019 | Alcoholic | Results for this | | | e | 8:39 AM | cirrhosis of liver | procedure [...] + | URINE, MICROSCOPIC | Routin | 04/21/2019 | Alcoholic | Results for this | | EXAM | e | 8:39 AM | cirrhosis of liver | procedure [...] | + +--------+ + + + | ANTI SMOOTH MUSCLE | Routin | 04/21/2019 | Alcoholic | Results for this | | AB, SERUM | e | 8:39 AM | cirrhosis of liver | procedure [...] | HIV AB/AG SCREENING | Routin | 04/21/2019 | Alcoholic | Results for this | | W/REFLEX TO CONFIRM | e | 8:39 AM | cirrhosis of liver | procedure [...] | + +--------+ + + + | RPR SERUM | Routin | 04/21/2019 | Alcoholic | Results for this | | | e | 8:39 AM | cirrhosis of liver | procedure [...] +--------+ + + + | RUBELLA IGG AB, | Routin | 04/21/2019 | Alcoholic | Results for this | | SERUM | e | 8:39 AM | cirrhosis of liver | procedure [...] + + | APTT (ACT. PART. | Routin | 04/21/2019 | Alcoholic | Results for this | | THROMBO TIME) | e | 8:39 AM | cirrhosis of liver | procedure [...] + | ANTIBODY SCREEN | Routin | 04/21/2019 | Alcoholic | Results for this | | | e | 8:39 AM | cirrhosis of liver | procedure [...] | TYPE AND SCREEN | Routin | 04/21/2019 | Alcoholic | Results for this | | | e | 8:39 AM | cirrhosis of liver | procedure [...] ABO & RH TYPE | Routin | 04/21/2019 | Alcoholic | Results for this | | | e | 8:39 AM | cirrhosis of liver | procedure [...] + + | TOXOPLASMA IGG AB, | Routin | 04/21/2019 | Alcoholic | Results for this | | SERUM | e | 8:39 AM | cirrhosis of liver | procedure [...] | CULTURE, URINE BACTI | Routin | 04/21/2019 | Alcoholic | Results for this | | | e | 8:39 AM | cirrhosis of liver | procedure [...] +--------+ + + + | ALPHA-FETOPROTEIN | Routin | 04/21/2019 | Alcoholic | Results for this | | TUMOR MARKER, SERUM | e | 8:39 AM | cirrhosis of liver | procedure [...] + + | FERRITIN | Routin | 04/21/2019 | Alcoholic | Results for this | | | e | 8:39 AM | cirrhosis of liver | procedure [...] + + + | FREE T4 | Routin | 04/21/2019 | Alcoholic | Results for this | | | e | 8:39 AM | cirrhosis of liver | procedure [...] +--------+ + + + | TSH | Routin | 04/21/2019 | Alcoholic | Results for this | | | e | 8:39 AM | cirrhosis of liver | procedure [...] + +--------+ + + + | HEPATITIS A AB IGM, | Routin | 04/21/2019 | Alcoholic | Results for this | | SERUM | e | 8:39 AM | cirrhosis of liver | procedure [...] + + | HEPATITIS B SURFACE | Routin | 04/21/2019 | Alcoholic | Results for this | | AB QUAL, SERUM | e | 8:39 AM | cirrhosis of liver | procedure [...] + | HEPATITIS B CORE AB, | Routin | 04/21/2019 | Alcoholic | Results for this | | SERUM | e | 8:39 AM | cirrhosis of liver | procedure [...] + + | HEPATITIS C VIRUS | Routin | 04/21/2019 | Alcoholic | Results for this | | W/CONFIRMATION | e | 8:39 AM | cirrhosis of liver | procedure [...] + | HEMOGLOBIN A1C, | Routin | 04/21/2019 | Alcoholic | Results for this | | BLOOD | e | 8:39 AM | cirrhosis of liver | procedure [...] + | BILIRUBIN DIRECT | Routin | 04/21/2019 | Alcoholic | Results for this | | | e | 8:39 AM | cirrhosis of liver | procedure [...] | + +--------+ + + + | PROTEIN | Routin | 04/21/2019 | Alcoholic | Results for this | | ELECTROPHORESIS, | e | 8:39 AM | cirrhosis of liver | procedure are in the | | SERUM, WITH REFLEX | | PDT | with ascites (HCC) | results section. | | TO IMMUNOFIXATION | | | Ascites due to | | | | | | alcoholic cirrhosis | | | | | | (HCC) Internal | | | | | | organ deficiencies | | | | | | Preoperative | | | | | | examination | | + +--------+ + + + | IRON AND TIBC, SERUM | Routin | 04/21/2019 | Alcoholic | Results for this | | | e | 8:39 AM | cirrhosis of liver | procedure [...] + + documented in this encounter Results URINE CULTURE WORKUP (04/21/2019 8:39 AM PDT) + + | Specimen | + + | Urine | + + + + + | Narrative | Performed At | + + + | Culture Report: < 10,000 cfu/ml Insignificant growth | [facility] | | [place] | + + + + + + + + | Performing | Address | City/State/Zipcode | Phone Number | | Organization | | | | + + + + + | [facility] | [address] | [place] [address] | | | [place] | | | | + + + + + CONFIRMATORY ABO/RH (04/21/2019 8:39 AM PDT) + + + [...] | + + + + + | [facility] | [address] | [place] [address] | | | SERVICES, | [address] | | | | TRANSFUSION MEDICINE | | | | + + + + + CULTURE, URINE SEJAL (04/21/2019 8:39 AM PDT) + + + + + + | Component | Value | Ref Range | Performed | Pathologist | | | | | At | Signature | + + + + + + | URINE | See Cx Results (A) | | [facility] | | | CULTURE | | | LABORATORY | | | [facility] [...] [facility] | [address] | [place] [address] | | | SERVICES, CORE | [address] | | | + + + + + CBC AND AUTO DIFF (04/21/2019 8:39 AM PDT) + + + + + + | Component | Value | Ref Range | Performed | Pathologist | | | | | At | Signature | + + + + + + | WHITE CELL | 11.08 (H) | 3.50 - 10.80 | [facility] [...] + + + + | MCV | 107.8 (H) | 80.0 - 100.0 fL | [...] + + + + | PLATELET | 77 (L)Comment: | 150 - 400 K/cu | [...] + + + + | NEUTROPHIL | 82.0 (H) | 50.0 - 70.0 % | [facility] | | | % | | | LABORATORY | | | | | | SERVICES, | | | | | | CORE | | + + + + + + | LYMPHOCYTE | 8.3 (L) | 18.0 - 42.0 % | [facility] | | | % | | | LABORATORY | | | | | | SERVICES, | | | | | | CORE | | + + + + + + | MONOCYTE % | 7.5 | 3.5 - 9.0 % | [facility] [...] + + + + | IG% | 0.6Comment: Increased | 0.0 - 1.0 % | [...] + + + + | NEUTROPHIL | 9.08 (H) | 1.80 - 7.70 | [facility] [...] + + + | MONOCYTE # | 0.83 | 0.10 - 0.90 | [facility] | [...] + + + + | IG# | 0.07 | 0.00 - 0.10 | [facility] | [...] [facility] | [address] | [place] [address] | | | SERVICES, CORE | [address] | | | + + + + + ANTIBODY SCREEN (04/21/2019 8:39 AM PDT) + + + [...] [facility] | [address] | [place] [address] | | | SERVICES, | [address] | | | | TRANSFUSION MEDICINE | | | | + + + + + ABO & RH TYPE (04/21/2019 8:39 AM PDT) + + + [...] [facility] | [address] | [place] [address] | | | SERVICES, | [address] [...] | + + + + + | [facility] | [address] | [place] [address] | | | SERVICES, CORE | [address] [...] | | | INTERPRETAT | | | [place] | | | ION | | | | | + +--------+ + + + + + | Specimen | + + | Blood - Blood | | (substance) | + + + + + + + | Performing | Address | City/State/Zipcode | Phone Number | | Organization | | | | + + + + + | [facility] | [address] | [place] [address] | | | [facility] | | | | + + + [...] | | | | Repeat testing in 10-14 | | | | | | | [...] by | | | | | | [employer],[address] | | | | | | [address], [facility],[place] | | | | | | [address] | | | | | | [phone].[employer] [employer]. | | | | | | Harley [...] [facility] | [address] | [place], [place] | | | UNIV PTH - INTFC | | [address] | | + + + + + [...] by | | | | | | [employer],[address] | | | | | | Gurwinder Brown, [facility],[place] | | | | | | [address] | | | | | | [phone].[employer]. | | | | | | [facility] centerHarley MD, | | | | [...] [facility] | [address] | [place], [place] | | | UN[facility] [place] - [place] | | [address] | | + + + + + [...] by | | | | | | [employer],[address] | | | | | | [place] | | | | | | [address] | | | | | | [phone].[employer]. | | | | | | Harley [...] [facility] | [address] | [place], [place] | | | UN[facility] P[facility] - INT[place] | | [address] | | + + + + + [...] [address] | | | | | | Jonny [facility] [address] | | | | | | [phone].aruplab. | | | | | | Harley [...] [facility] | [address] | [place], [place] | | | UN[facility] PTH - INTFC | | [address] | | + + + + + [...] by | | | | | | [employer],[address] | | | | | | Gurwinder Brown, [facility],[place] | | | | | | [address] | | | | | | [phone].[employer]. | | | | | | patricia, Harley Coates MD, | | | | [...] | + + + + + | [facility] | [address] | [place], [place] | | | UN[facility] PTH - INTFC | | [address] | | + + + + + [...] [address] | | | | | | [place] [address] | | | | | | [phone].aruplab. | | | | | | Harley [...] [facility] | [address] | [place], [place] | | | UNIV PTH - INTFC | | [address] | | + + + + + [...] | TESTING IS NOT INDICATED | | [place] | | | | OR USEFUL TO [...] + | [facility] | [address] | [place] [address] | | | [place] | | | [...] by | | | | | | [employer],[address] | | | | | | Gurwinder Brown, [facility],[place] | | | | | | [address] | | | | | | [phone].BC[facility] Solutionssed[facility]. | | | | | | Harley gomez MD, | | | | | | Lab. Director | | | | + + + + + + + + | Specimen | + + | Blood - Blood | | (substance) | + + + + + + + | Performing | Address | City/State/Unm Cancer Centercode | Phone Number | | Organization | | | | + + + + + | [facility] | [address] | [place], [place] | | | UNIV PTH - INTFC | | [address] | | + + + + + [...] by | | | | | | [employer],[address] | | | | | | Gurwinder Brown, [facility],[place] | | | | | | [address] | | | | | | [phone].[facility] [employer]. | | | | | | Harley [...] + + | [facility] | [address] [facility] | [place], [place] | | | UNIV PTH - INTFC | | [address] | | + + + + + [...] + | [facility] | [address] | [place] [address] | | | [place] | | | [...] + | [facility] | [address] | [place] [address] | | | [facility] | | | | + + + [...] [facility] | [address] | [place] [address] | | | SERVICES, CORE | [address] [...] | + + + + + | [facility] | [address] | [place] [address] | | | SERVICES, CORE | [address] [...] [facility] | [address] | [place] [address] | | | SERVICES, CORE | PARK [...] | + + + + + | [facility] | [address] | [place] [address] | | | SERVICES, CORE | PARK [...] REG UNIV | | | (PETH) | 16:0/18:1.0-[id number]- | | PTH - INTFC | | | | kxtuma-vx-yzdnfji-3-phos | | | | | | phoethanol.Analysis [...] | | | | at: [facility] [address] | | | | | | [facility] [address] | | | | | | [place] [address] | | | | + + + + + + + + | Specimen | + + | Blood - Blood | | (substance) | + + + + + + + | Performing | Address | City/State/Zipcode | Phone Number | | Organization | | | | + + + + + | [facility] | [address] | [place], [place] | | | UNIV PTH - INTFC | | [address] | | + + + + + [...] of | | | | | | wonkt-9-paejriah | | | | | | inhibitor [...] | | | | | days.Performed by [facility] | | | | | | Laboratories,[address] [facility] | | | | | | [place] [address] | | | | | | [phone].[facility] centerlab. | | | | | [...] [facility] | [address] | [place], [place] | | | UNIV PTH - INTFC | | [address] | | + + + + + [...] | | | | | determined by [facility] | | | | | | Laboratories. See | | | | | | Compliance Statement B: | | | | | | [employer]/CSPerformed | | | | | | by [employer],[address] | | | | | | Gurwinder Brown [facility],[place] | | | | | | [address] | | | | | | [phone].[employer]. | | | | | | comHarley [...] [facility] | [address] | [place], [place] | | | UNIV PTH - INTFC | | [address] | | + + + + + [...] | + + + + + | [facility] | [address] | [place] [address] | | | SERVICES, [facility] | [address] | | | + [...] + | [facility] | [address] | [place] [address] | | | [facility] | | | | + + + [...] IFA | | | | | | ([id number]). No | | | | | | antibodies to | | | | | | Anti-Nuclear Antibodies | | | | | | (DIOGENES) detected. The | | | | | | Extractable Nuclear | | | | | | Antigen Antibodies (GRIP BOSS, | | | | | | Arreguin, [...] | | | | | SARD.Performed by [facility] | | | | | | [facility],[address] [facility] | | | | | | [place], [facility] [address] | | | | | | [phone].[facility] [employer]. | | | | | | [facility], Harley Coates MD, | | | | [...] [facility] | [address] | [place], [place] | | | UNIV PTH - INTFC | | [address] | | + + + + + [...] | [facility] | | considered for monitoring termite exterminator helper glycemic control in patients with: | LABORATORY [...] | + + + + + | [facility] | [address] [facility] | [place] [address] | | | SERVICES, SPECIAL | PARK [...] by | | | | | | [employer],[address] | | | | | | Gurw[address] Brown, [facility],[place] | | | | | | [address] | | | | | | [phone].[employer]. | | | | | | [facility] centerHarley MD, | | | | | | Lab. Director | | | | + + + + + + + + | Specimen | + + | Blood - Blood | | (substance) | + + + + + + + | Performing | Address | City/State/Unm Cancer Centercode | Phone Number | | Organization | | | | + + + + + | [facility] | [address] | [place], [place] | | | UNIV PTH - INT[place] | | [address] | | + + + + + [...] [facility] | | | NIL | by [employer],[address] | | REG UNIV | | | | Gurwinder Brown, [facility],[place] | | PTH - INTFC | | | | [address] | | | | | | [phone].aruplab. | | | | | | Harley [...] | | | | | | --- [place], 2009 | | | | | | (http://www.cdc.gov/mmwr | | | | | | /preview/mmwrhtml/[email or web address] | | | | | | [email or web address].htm), [...] [facility] | [address] | [place], [place] | | | UNIV PTH - INTFC | | [address] | | + + + + + [...] | | | | | determined by [facility] | | | | | | Laboratories. See | | | | | | Compliance Statement B: | | | | | | [employer]/CSPerformed | | | | | | by [employer],[address] | | | | | | [facility],[place] | | | | | | [address] | | | | | | [phone].[employer]. | | | | | | [employer] EnergyHarley MD, | | | | | | [...] [facility] | [address] | [place], [place] | | | UNIV PTH - INTFC | | [address] | | + + + + + [...] | + + + + + | [facility] | [address] | [place] [address] | | | SERVICES, CORE | [address] [...] 5 | | | | | | ng/jG2-MD-Qdxbgbzc 50 | | | | | | [...] | | | | | determined by [facility] | | | | | | Laboratories. See | | | | | | Compliance Statement B: | | | | | | [employer]/CSPerformed | | | | | | by [facility],[address] | | | | | | [address] Brown [facility],[place] | | | | | | [address] | | | | | | [phone].[facility] [employer]. | | | | | | Harley [...] REG UNIV | | | | and 0-BC-kfywfxly is | | PTH - INTFC | | | | ametabolite of cotinine. | | | | | | After cessation from | | | | | | long-term orheavy use of | | | | | | nicotine products, | | | | | | 7-CD-aczqouam may | | | | | | [...] [facility] | [address] | [place], [place] | | | UNIV PTH - INTFC | | [address] | | + + + + + [...] Horace | | | | | | Ubaldo CARRERO - Pathology | | | | + + + + + + + + | Specimen | + + | Blood - Blood | | (substance) | + + + + + + + | Performing | Address | City/State/Zipcode | Phone Number | | Organization | | | | + + + + + | [facility] | [address] | [place] [address] | | | [place] | | | | + + + [...] + + | [facility] | [address] | [place] [address] | | | SERVICES, CORE | PARK [...] [facility] | [address] | [place] [address] | | | SERVICES, CORE | PARK [...] (H) | 0.6 - 1.2 ng/dL | [facility] | | | | | | LABORATORY [...] [facility] | [address] | [place] [address] | | | SERVICES, CORE | PARK [...] [facility] | [address] | [place] [address] | | | SERVICES, CORE | PARK [...] | + + + + + | [facility] | [address] | [place] [address] | | | SERVICES, CORE | MOISES [...] | | | | | determined by [employer] | | | | | | Laboratories. See | | | | | | Compliance Statement B: | | | | | | [employer]/CSPerformed | | | | | | by [employer],[address] | | | | | | [address], [facility],[place] | | | | | | [id number] | | | | | | [phone]. | | | | | | [facility] centerHarley MD, | | | | [...] [facility] | [address] | [place], [place] | | | [facility] | | [id number] | | + + + + + [...] [facility] | [address] | [place] [address] | | | SERVICES, CORE | [address] | | | + + + + + UAMAUDE ONLY (04/21/2019 8:39 AM PDT) + + [...] | [facility] | | | GRA[facility]ITY | [place] performed by | | LABORATORY | | [...] | [address] [address] | [place] [address] | | | SERVICES, CORE | PARK [...] + | [facility] | [address] | [place] [address] | | | SERVICES, CORE | PARK [...] + | [facility] | [address] | [place] [address] | | | SERVICES, CORE | [address] | | | + + + + + BILIRUBIN DIRECT (04/21/2019 8:39 AM PDT) + +---------+ + + + | Component | Value | Ref Range | Performed | Pathologist | | | | | At | Signature | + +---------+ + + + | BILIRUBIN | 5.2 (H) | 0.0 - 0.3 mg/dL | [facility] | | | DIRECT | | | [...] [facility] | [address] | [place] [address] | | | SERVICES, CORE | PARK [...] | | LABORATORY | | | [place] | | | SERVICES, | | | [...] MDRD equation recommended by the National | [facility] | | Kidney Disease Education [...] | + + + + + | [facility] | [address] | [place] [address] | | | CLAUDIA, ARTIS | MOISES [address]IR[address] | | | + + + + + documented in this encounter Visit Diagnoses + + | Diagnosis | + + | Alcoholic cirrhosis of liver with ascites (HCC) Alcoholic cirrhosis of liver | + + | Ascites due to alcoholic cirrhosis (HCC) | + + | Internal organ deficiencies Deficiencies of internal organs | + + | Preoperative examination Preoperative examination, unspecified | + + documented in this encounter
--- OUTSIDE RECORDS SUMMARY | ~2020-07-29 | XMS | Encounter Summary ---
Demographics + + + | Address | [address] | | | [place] [address] | + + + | Home Phone [...] [place] | | | | | [address] | | + + + + + Care Team Providers + +------+ + | Care Well Logging Mud Analysis Captain Name | Role | Phone | + [...] | | | | | Procedures | [place], [place] | [address] | | | | | IR CENTRAL | [address] | [place] | | | | | VENOUS | Phone: | Hospital | | | | | ACCESS | [phone] | [facility] | | | | | PROCEDURE | Fax: | [place], [place] | | | | | [place] REMOVAL | [phone] | [address] | | | | | TUNNELED CV | | Phone: | | | | | CATH [place] | | [phone] | | | | | REMOVAL SONIA | | Fax: | | | | | CV CATH W SQ | | [phone] | | | | | PORT/PUMP | | | | | | | [place] | | | | | | | FLUOROGUIDE | | | | | | | FOR VEIN | | | | | | | DEVICE | | | +--------+--------+ + + + + Encounter Details +--------+ + + + + | Date | Type | Department | Care Team | Description | +--------+ + + + + | 09/12/ | Solar Thermal Installer | Nephrology & | Angélica Chao, | KAR (acute kidney | | 2019 | | Hypertension at [facility] | MD [address] | injury) (HCC) | | | | [address] | [address] | (Primary Dx) | | | | Loop Physician's | [place], [place] | | | | | [address], 3rd floor | [address] | | | | | [place], [place] | [phone] | | | | | [address] | | | | | | [phone] | | | +--------+ + + + [...] Notes Telephone Encounter - Marie Lopez - 09/14/2019 11:43 AM PSTCelled IR and gave message fr qing Chao, They will call pt to schedule appt. Marie Lopez MA document ed in this encounter Plan of Treatment +--------+ + + + + | Date | Type | Specialty | Care Team | Description | +--------+ + + + + | 08/08/ | Telephone-S | Nephrology | Angélica Chao, | | | 2019 | [place] | | [address] | | | | | | [address] | | | | | | [place], [place] | | | | | | [address] | | | | | | [phone] | | | | | | | | +--------+ + + + + | 09/27/ | Telephone-S | Liver Transplant | Vimal Crowe MD | | 2019 | [place] | | [address] | | | | | | [address], | | | | | | [place] [address] | | | | | | [phone] | | | | | | | [...] Rd | | | | | | [place], [place] | | | | | | [address] | | | | | | [phone] | | | | | | | [...] | ACCESS PROCEDURE | | | injury) (HCC) | PST | + +---------+--------+ + + + +---------+--------+ + + | Name | Type | Priori | Associated Diagnoses | Order Schedule | | | | ty | | | + +---------+--------+ + + | IR CENTRAL VENOUS | Imaging | Urgent | KAR (acute kidney | Expected: | | ACCESS PROCEDURE | | | injury) ([facility]) | 09/12/2019, Expires: | | | | | | 10/12/2020 | + +---------+--------+ + + documented as of this encounter Visit Diagnoses + + | Diagnosis | + + | KAR (acute kidney injury) (HCC) - Primary Acute kidney failure, unspecified | + + documented in this encounter"
--- OUTSIDE RECORDS SUMMARY | ~2020-07-29 | XMS | Encounter Summary ---
Demographics + + + | Address | [address] | | | [place] [address] | + + + | Home Phone [...] [place] | | | | | [address] | | + + + + + Care Team Providers + +------+ + | Care Stonecutter Name | Role | Phone | + +------+ + | Sharon David MD | PCP | | + +------+ + Reason for Visit + +--------+ + | Reason | Onset | Comments | | | Date | | + +--------+ + | Liver Transplant | 08/28/ | path conference 08/27/19 | | Follow Up | 2019 | | + +--------+ + Encounter Details +--------+ + + + + | Date | Type | Department | Care Team | Description | +--------+ + + + + | 08/28/ | Documentati | Clinical | Cecille Brunner RN | Liver Transplant | | 2019 | on | Transplant Services | [address] | Follow Up (path | | | | [address] | [place], | conference 08/27/19) | | | | [place], | [place] [address] | | | | | [place] [address] | | | | | | [phone] | | | +--------+ + + + [...] Telephone Encounter - Cecille Brunner RN - 08/28/2019 7:56 AM PST08/16/19 explant and time z ero liver biopsies reviewed at path conference on 08/27/19. Established background cirrhosis noted on explant with significant amount of iron deposition. Negative for malignancy. (Clini julia dx of ETOH cirrhosis.) Tdocumented in this encounter Plan of Treatment +--------+ + + + + | Date | Type | Specialty | Care Team | Description | +--------+ + + + + | 08/08/ | Telephone-S | Nephrology | Angélica Chao, | | | 2019 | [place] | | [address] | | | | | | [address] | | | | | | [place], [place] | | | | | | [address] | | | | | | [phone] | | | | | | | | +--------+ + + + + | 09/27/ | Telephone-S | Liver Transplant | Vimal Crowe MD | | 2019 | cheduled | | [address] | | | | | | Bee [address] [place] [address], | | | | | | [place] [address] | | | | | | [phone] | | | | | | | [...] Rd | | | | | | [place] | | | | | | [address] | | | | | | [phone] | | | | | | | | +--------+ + + + + documented as of this encounter Visit Diagnoses Not on filedocumented in this encounter"
--- OUTSIDE RECORDS SUMMARY | ~2020-07-29 | XMS | Encounter Summary ---
Demographics + + + | Address | [address] | | | [place] [address] | + + + | Home Phone | | + + + | Preferred Language | Unknown | + + + | Marital Status | Single | + + + | Restorationism Affiliation | NON | + + + [...] [place] | | | | | [address] | | + + + + + Care Team Providers + +------+ + | Care Content Coordinator Name | Role | Phone | + +------+ + PCP | Unavailable | + +------+ + Encounter Details +--------+ + + + + | Date | Type | Department | Care Team | Description | +--------+ + + + + | 03/23/ | Results | | Rod Velasquez MD | | | 1998 | Only | | [address] | | | | | | [address] | | | | | | [place] [address] | | | | | | [phone] | | | | | | | [...] Rd | | | | | | [place], [place] | | | | | | [address] | | | | | | [phone] | | | | | | | | +--------+ + + + + | 09/27/ | Telephone-S | Liver Transplant | Vimal Crowe MD | | | 2019 | cheduled | | [address] | | | | | | [address], | | | | | | [place] [address] | | | | | | [phone] | | | | | | | [...] Rd | | | | | | [place], [place] | | | | | | [address] | | | | | | [phone] | | | | | | | | +--------+ + + + + documented as of this encounter Procedures + +--------+ + + + | Procedure Name | Priori | Date/Time | Associated Diagnosis | Comments | | | ty | | | | + +--------+ + + + | KENYATTA JACKSON | Routin | 03/23/1999 | | Results for this | | | e | 9:59 PM | | procedure are in the | | | | PDT | | results section. | + +--------+ + + + documented in this encounter Results KENYATTA JACKSON (03/23/1999 9:59 PM PDT) + + + + + + | Component | Value | Ref Range | Performed | Pathologist | | | | | At | Signature | + + + + + + | SKULL, 3 | Radiologist 1: NADIR, | | | | | VIEWS [place] | RABIA, | | | | | LESS | M.D.-Radiologist 2: | | | | | | DOUG DIAZ, | | | | | | M.D.SKULL THREE VIEWS: | | | | | | 03/23/99 Dictated: | | | | | | 04/02/99 COMPARISON: | | | | | | There are no prior | | | | | | studies available for | | | | | | comparison. FINDINGS: No | | | | | | foreign bodies are | | | | | | identified in the orbits | | | | | | orparanasal sinuses. | | | | | | There is a | | | | | | questionable soft tissue | | | | | | massidentified in the | | | | | | left maxillary sinus, | | | | | | which probably | | | | | | represents amucous | | | | | | retention cyst. No | | | | | | bony destruction is | | | | | | identified. IMPRESSION: | | | | | | 1. No foreign bodies | | | | | | identified in the orbit. | | | | | | 2. Probable left | | | | | | maxillary sinus mucous | | | | | | retention cyst. | | | | | | Acomputerized | | | | | | tomography scan is | | | | | | recommended for further | | | | | | evaluation ifclinically | | | | | | indicated. END OF | | | | | | IMPRESSION: | | | | + + + + + + + + | Specimen | + + | | + + + +---------+ + + | Performing | Address | City/State/Zipcode | Phone Number | | Organization | | | | + +---------+ + + | [facility] DEPARTMENT OF | | | | | RADIOLOGY | | | | + +---------+ + + documented in this encounter Visit Diagnoses Not on filedocumented in this encounter"
--- OUTSIDE RECORDS SUMMARY | ~2020-07-29 | XMS | Encounter Summary ---
Demographics + + + | Address | [address] | | | [place] [address] | + + + | Home Phone [...] [place] | | | | | [address] | | + + + + + Care Team Providers + +------+ + | Care Hotel Room Attendant Name | Role | Phone [...] liver with | [address] | Patricia [place] [facility] | | | | | ascites | Patricia [place] [facility], | | | | | (HCC) | [place], [place] | 10th Floor | | | | | Preoperative | [address] | [place], [place] | | | | | examination | Phone: | [address] | | | | | Internal | [phone] | Phone: | | | | | organ | Fax: | [phone] | | | | | deficiencies | [phone] | Fax: | | | | | Procedures | | [phone] | | | | | CT ABDOMEN | | | | | | | WWO IV | | | | | | | CONTRAST | | | +--------+--------+ + + + + Consultation (Urgent) +--------+--------+ + + + + | Status | Reason | Specialty | Diagnoses / | Referred By | Referred To | | | | | Procedures | Contact | Contact | +--------+--------+ + + + + | Closed | | Heart | Diagnoses | Naugler, | Car Cardiac | | | | 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, | Trans Chh1 | | | | | cirrhosis of | MD [address] | | | | | liver with | [address] | [address] | | | | | ascites | [place], [place] | for Health | | | | | (HCC) | [address] | and Healing, | | | | | Preoperative | Phone: | Building [address], | | | | | examination | [phone] | 7th Floor | | | | | Internal | Fax: | [place], [place] | | | | | organ | [phone] | [address] | | | | | deficiencies | | Phone: | | | | | Procedures | | [phone] | | | | | CONSULT TO | | Fax: | | | | | CARDIOLOGY | | [phone] | | | | | CO EST | | | | | | | PATIENT | | | | | | | LEVEL V | | | +--------+--------+ + + + + Consultation (Urgent) +--------+--------+ + [...] | liver with | [address] | [address] | | | | | ascites | [address] | [address] [place], | | | | | (HCC) | [facility] [place] | [place] | | | | | Preoperative | [address] | [address] | | | | | examination | Phone: | Phone: | | | | | Internal | [phone] | [phone] | | | | | organ | Fax: | Fax: | | | | | deficiencies | [phone] | [phone] | | | | | Procedures | | | | | | | CONSULT TO | | | | | | | INFECTIOUS | | | | | | | DISEASE | | | +--------+--------+ + + + + Consultation (Urgent) +--------+--------+ + + + + | Status | Reason | Specialty | Diagnoses / | Referred By | Referred To | | | | | Procedures | Contact | Contact | +--------+--------+ + + + + | Closed | | Urology | Diagnoses | Txc Trans | Wong Cornell | | | | | Alcoholic | Coord Liver | MD Elizabeth [address] | | | | | cirrhosis of | [address] | [address] | | | | | liver with | [address]jay | [place], [place] | | | | | ascites | [address] | [address] | | | | | (HCC) | [place], [place] | Phone: | | | | | Preoperative | [address] | [phone] | | | | | examination | Phone: | Fax: | | | | | Internal | [phone] | [phone] | | | | | organ | Fax: | | | | | | deficiencies | [phone] | | | | | | Procedures | | | | | | | CONSULT TO | | | | | | | UROLOGY | | | +--------+--------+ + + + + Reason for Visit + + + | Reason | Comments | + + + | Committee Review | | | Decision | | + + + Encounter Details +--------+ + + + + | Date | Type | Department | Care Team | Description | +--------+ + + + + | 04/28/ | Committee | Clinical | Porsche Perdomo, | Committee Review | | 2019 | Review | Transplant Services | RN [address] | Decision | | | | [address] | [address] | | | | | [place], | [place], [place] | | | | | [place] [address] | [address] | | | | | [phone] | | | +--------+ + + + [...] this encounter Miscellaneous Notes Committee Review - 04/29/2019 9:43 AM PDTLiver Transplant Committee Review Decision and Re commendations Pre LONG-TERM: Send letter, schedule a f/u appointment and CT abd-ordered, soonest available rose Crowe. Committee Date: 04/30/19 Patient Name: Steffen Duran : 1965 Age: 54 y.o. Discussion Type: Present Chairing MD: Jonn Pinon Disciplines Present: Medicine Attending, Surgery Attending, Boat Outfitting Supervisor, Transplant Coord inator, Oil Tanker Captain, Dietitian and Transplant Leadership Transplant Nurse: Porsche Perdomo Referring Physician for Transplant: Vimal Crowe D[facility]: (Not currently on dialysis) Based on the Selection Criteria, the following decision has been made for the patient's tra nsplant candidacy: Decision: DEFERRED, notified sister Doreen and Donell [...] done on 04/24/19. New referr al sent. 2. Urology Consult due to red blood cells, 6/hpf in urine on 04/22/19. Ordered 3. Complete tobacco cessation and submit urine nicotine/cotinine screens weekly for 4 cons ecutive weeks, then random. All must be negative. 4. Continue to engage in relapse prevention. 5. CT abdomen now. Ordered Recommendations to be completed but not required prior to listin. Ongoing screening for hepatocellular carcinoma: Abdominal ultrasound alternating with C T scan and AFP blood draw every 6 months. Scans should be done at [facility], combined with your p hysician appointments. US & AFP due 10/23/19. CT & AFP due 04/22/20. 2. Ongoing periodic random urine drug, nicotine, and ethyl glucuronide screenings, with bl ood alcohol screenings. 3. Ongoing labwork for medical management at least every 3 months: metabolic comprehensive , CBC with diff, PT INR. 4. Follow up with hematology/oncology for possible IV chelation. Inbox message sent to Dr. Bellamy-flor as an inpatient. Message ----- From: Anshul Taylor RN Sent: 05/04/2019 11:20 AM To: Vimal Crowe MD, Porsche Perdomo RN, * Referred today to [facility] Hematology. 5. 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 Ordered 6. You are at risk for complications after dental extractions. Per [facility] Liver Transplant p olicy, we recommend checking [...] level normalizes. 11. Vitamin D supplementation: Ergocalciferol 41825 units weekly x 6-8 weeks, then re-chec k 25-OH vit D; can give 1000 to 2000 units cholecalciferol daily when 25-OH vit D [address] 12. Vitamin A supplementation: 82351 IU (International Units, oral capsule). Take 2 capsul es: 23885 IU by mouth 3 times a week [...] | | 2019 | [place] | | [address] | | | | | | [address] | | | | | | [place], [place] | | | | | | [address] | | | | | | [phone] | | | | | | | | +--------+ + + + + | 09/27/ | Telephone-S | Liver Transplant | Vimal Crowe MD | | | 2019 | [place] | | [address] | | | | | | [facility] [address] [place], | | | | | | [place] [address] | | | | | | [phone] | | | | | | | [...] Rd | | | | | | [place], [place] | | | | | | [address] | | | | | | [phone] | | | | | | | | +--------+ + + + + documented as of this encounter Results CT ABDOMEN WWO IV [...] Note | + + | Service Account, Tethis In Interface - 05/19/2019 4:03 PM PDT [...] portal | | hypertension, without ascites. LI-RADS [id number] NC: Not categorized due to image | [...] | | |Final signature: Roger Woodson MD 05/19/2019 4:01 PM | |Preliminary: [...] | | liver | + + | Preoperative examination Preoperative examination, unspecified | + + | Internal organ deficiencies Deficiencies of internal organs | + + documented in this encounter
--- OUTSIDE RECORDS SUMMARY | ~2020-07-29 | XMS | Encounter Summary ---
Demographics + + + | Address | [address] | | | [place] [address] | + + + | Home Phone [...] [place] | | | | | [address] | | + + + + + Care Team Providers + +------+ + | Care Director Of Employer Services Name | Role | Phone | + [...] (cardiology) | | | | Patricia [address] [place], | [place], [place] | | | | | [place] [address] | [address] | | | | | [phone] | | | +--------+ + + + [...] AM PDTCal from Dr. Dan cardiology at [facility] would like to coordinate with our team. [...] [address] | | | | | | [place], [place] | | | | | | [address] | | | | | | [phone] | | | | | | | | +--------+ + + + + | 09/27/ | Telephone-S | Liver Transplant | Vimal Crowe MD | | | 2019 | [place] | | [address] | | | | | | [facility] [address] [place], | | | | | | [place] [address] | | | | | | [phone] | | | | | | | | +--------+ + + + + | 10/03/ | Appointment | Cardiology | | | | 2019 | | | | | +--------+ + + + + | 10/03/ | Office | Cardiology | Cyril Samuel | | | 2019 | Visit | | MD Patricia [address] | | | | | | [address] | | | | | | [place], [place] | | | | | | [address] | | | | | | [phone] | | | | | | | | +--------+ + + + + documented as of this encounter Visit Diagnoses Not on filedocumented in this encounter"
--- OUTSIDE RECORDS SUMMARY | ~2020-07-29 | XMS | Encounter Summary ---
Demographics + + + | Address | [address] | | | [place] [address] | + + + | Home Phone [...] [place] | | | | | [address] | | + + + + + Care Team Providers + +------+ + | Care Screen Print Operator Name | Role | Phone | + +------+ + PCP | Unavailable | + +------+ + Encounter Details +--------+ + + + + | Date | Type | Department | Care Team | Description | +--------+ + + + + | 05/15/ | Results | | Other, Faculty | | | 1998 | Only | | [phone] | | +--------+ + + + + [...] | | 2019 | [place] | | [address] | | | | | | [address] | | | | | | [place], [place] | | | | | | [address] | | | | | | [phone] | | | | | | | | +--------+ + + + + | 09/27/ | Telephone-S | Liver Transplant | Vimal Crowe MD | | | 2019 | [place] | | [address] | | | | | | [address], | | | | | | [place] [address] | | | | | | [phone] | | | | | | | [...] Rd | | | | | | [place], [place] | | | | | | [address] | | | | | | [phone] | | | | | | | | +--------+ + + + + documented as of this encounter Procedures + +--------+ + + + | Procedure Name | Priori | Date/Time | Associated Diagnosis | Comments | | | ty | | | | + +--------+ + + + | X-RAY SPINE | Routin | 05/15/1999 | | Results for this | | THORACOLUMBAR 2 | e | 4:15 PM | | procedure are in the | | VIEWS | | PDT | | results section. | + +--------+ + + + documented in this encounter Results SPINE THORACOLUMBAR 2 VIEWS (05/15/1999 4:15 PM PDT) + + + + + + | Component | Value | Ref Range | Performed | Pathologist | | | | | At | Signature | + + + + + + | SPINE | Radiologist 1: ELIA, | | | | | THORACOLUMB | Kianna GUEVARA-Radiologist | | | | | AR 2 VIEWS | 2: PAOLA RODRIGEZ, | | | | | | KiannaAP AND LATERAL VIEWS | | | | | | OF THE THORACOLUMBAR | | | | | | SPINE: 05/15/99. | | | | | | Dictated 05/16/99 | | | | | | COMPARISON: Comparison | | | | | | is made with prior | | | | | | study of 03/28/99. | | | | | | FINDINGS: A | | | | | | thoracolumbar brace is | | | | | | in place with all its | | | | | | inherentartifacts. | | | | | | Wedging of the T11 and | | | | | | T12 vertebral bodies is | | | | | | present andunchanged | | | | | | from the prior | | | | | | examination. | | | | | | Thoracolumbar kyphosis | | | | | | ismeasured at 25 | | | | | | degrees, which is | | | | | | unchanged from the prior | | | | | | exam. Therehas been | | | | | | an interval decrease in | | | | | | the levoscoliosis. | | | | | | IMPRESSION: 1. | | | | | | Thoracolumbar kyphosis | | | | | | unchanged from the | | | | | | prior study. 2. Near | | | | | | resolution of | | | | | | levoscoliosis. 3. | | | | | | Wedging of eleventh | | | | | | and twelfth thoracic | | | | | | vertebrae, which | | | | | | isunchanged from the | | | | | | prior examination. END | | | | | | OF IMPRESSION: | | | | + + + + + + + + | Specimen | + + | | + + + + + | Narrative | Performed At | + + + | Ordered by RAMÓN GRANADO M.D. | | + + + + [...]
--- OUTSIDE RECORDS SUMMARY | ~2020-07-29 | XMS | Encounter Summary ---
Demographics + + + | Address | [address] | | | [place] [address] | + + + | Home Phone [...] [place] | | | | | [address] | | + + + + + Care Team Providers + +------+ + | Care Aircraft Powertrain Repairer Name | Role | Phone | + +------+ + | Sharon David MD | PCP | | + +------+ + Encounter Details +--------+ + + + + | Date | Type | Department | Care Team | Description | +--------+ + + + + | 11/04/ | [facility] | Clinical | Vimal Crowe MD | Liver replaced by | | 2019 | | Transplant Services | [address] | transplant (HCC) | | | | [address] | [address] [place], | (Primary Dx) | | | | [facility], | [place] [address] | | | | | [place] [address] | [phone] | | | | | [phone] | | | +--------+ + + + [...] Rd | | | | | | [place], [place] | | | | | | [address] | | | | | | [phone] | | | | | | | | +--------+ + + + + | 09/27/ | Telephone-S | Liver Transplant | Vimal Crowe MD | | | 2019 | cheduled | | [address] | | | | | | [address], | | | | | | [place] [address] | | | | | | [phone] | | | | | | | [...] Rd | | | | | | [place], [place] | | | | | | [address] | | | | | | [phone] | | | | | | | | +--------+ + + + + documented as of this encounter Results IRON AND TIBC (11/09/2019 7:53 AM PST) + +--------+ + + + | Component | Value | Ref Range | Performed | Pathologist | | | | | At | Signature | + +--------+ + + + | IRON | 42 (L) | 50 - 170 ug/dL | [facility] | | | | | | LABORATORY | | | | | | SERVICES, | | | | | | CORE | | + +--------+ + + + | IRON BIND | 240 | 240 - 450 ug/dL | [facility] | | | CAP | | | LABORATORY | | | | | | SERVICES, | | | | | | CORE | | + +--------+ + + + | % | 18 (L) | 20 - 50 % | [facility] [...] [facility] | [address] | [place] [address] | | | SERVICES, CORE | [address] | | | + + + + + documented in this encounter Visit Diagnoses + + | Diagnosis | + + | 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
--- OUTSIDE RECORDS SUMMARY | ~2020-07-29 | XMS | Encounter Summary ---
Demographics + + + | Address | [address] | | | [place] [address] | + + + | Home Phone [...] [place] | | | | | [address] | | + + + + + Care Team Providers + +------+ + | Care Ethylene Plant Helper Name | Role | Phone | + +------+ + | Sharon David MD | PCP | | + +------+ + Encounter Details +--------+--------+ + + + | Date | Type | Department | Care Team | Description | +--------+--------+ + + + | 10/01/ | Travel | | | | | [...] Rd | | | | | | [place], [place] | | | | | | [address] | | | | | | [phone] | | | | | | | | +--------+ + + + + | 09/27/ | Telephone-S | Liver Transplant | Vimal Crowe MD | | | 2019 | [place] | | [address] | | | | | | [address], | | | | | | [place] [address] | | | | | | [phone] | | | | | | | [...] [place] | | | | | | [address] | | | | | | [phone] | | | | | | | | +--------+ + + + + documented as of this encounter Visit Diagnoses Not on filedocumented in this encounter"
--- OUTSIDE RECORDS SUMMARY | ~2020-07-29 | XMS | Encounter Summary ---
Demographics + + + | Address | [address] | | | [place] [address] | + + + | Home Phone [...] [place] | | | | | [address] | | + + + + + Care Team Providers + +------+ + | Care Business Strategist Name | Role | Phone | + +------+ + PCP | Unavailable | + +------+ + Encounter Details +--------+ + + + + | Date | Type | Department | Care Team | Description | +--------+ + + + + | 05/16/ | Results | | Rod Velasquez MD | | | 1998 | Only | | [address] | | | | | | [address] | | | | | | [place] [address] | | | | | | [phone] | | | | | | | [...] Rd | | | | | | [place], [place] | | | | | | [address] | | | | | | [phone] | | | | | | | | +--------+ + + + + | 09/27/ | Telephone-S | Liver Transplant | Vimal Crowe MD | | | 2019 | cheduled | | [address] | | | | | | [address], | | | | | | [place] [address] | | | | | | [phone] | | | | | | | [...] Rd | | | | | | [place], [place] | | | | | | [address] | | | | | | [phone] | | | | | | | | +--------+ + + + + documented as of this encounter Procedures + +--------+ + + + | Procedure Name | Priori | Date/Time | Associated Diagnosis | Comments | | | ty | | | | + +--------+ + + + | TIBIA AND FIBULA, 2 | Routin | 07/04/1999 | | Results for this | | VIEWS | e | 12:35 PM | | procedure are in the | | | | PDT | | results section. | + +--------+ + + + | TIBIA AND FIBULA, 2 | Routin | 05/16/1999 | | Results for this | | VIEWS | e | 9:20 AM | | procedure are in the | | | | PDT | | results section. | + +--------+ + + + documented in this encounter Results TIBIA AND FIBULA, 2 VIEWS (07/04/1999 12:35 PM PDT) + + + + + + | Component | Value | Ref Range | Performed | Pathologist | | | | | At | Signature | + + + + + + | TIBIA AND | Radiologist 1: MARNIE, | | | | | FIBULA, 2 | Kianna SAMPSONRIGHT | | | | | VIEWS | TIBIA AP AND LATERAL | | | | | | VIEWS: 07/04/99 at | | | | | | 12:35 hours. | | | | | | Dictated on 07/05/99 | | | | | | COMPARISON: Comparison | | | | | | is made with prior study | | | | | | of 05/16/99. FINDINGS: | | | | | | There is decreased | | | | | | destruction and a mild | | | | | | increase in newbone | | | | | | formation across the | | | | | | proximal right tibial | | | | | | fracture, which | | | | | | isotherwise unchanged in | | | | | | alignment. The | | | | | | external fixator device | | | | | | showsno evidence of | | | | | | failure or loosening. | | | | | | There is no change in | | | | | | positionof the proximal | | | | | | fibula fracture. A | | | | | | pair of lag screws and | | | | | | three pinscross the | | | | | | tibial condyles | | | | | | horizontally. | | | | | | IMPRESSION: 1. | | | | | | Progressive | | | | | | radiographic healing of | | | | | | the proximal right | | | | | | tibialfracture with no | | | | | | change in appearance of | | | | | | the external fixator. 2. | | | | | | Stable appearance of | | | | | | proximal right fibular | | | | | | fracture and screwsand | | | | | | pins through proximal | | | | | | tibial plateaus. END | | | | | | OF IMPRESSION: | | | | + + + + + + + + | Specimen | + + | | + + + +---------+ + + | Performing | Address | City/State/Zipcode | Phone Number | | Organization | | | | + +---------+ + + | [facility] | | | | [facility] | | | | + +---------+ + + TIBIA AND FIBULA, 2 VIEWS (05/16/1999 9:20 AM PDT) + + + + + + | Component | Value | Ref Range | Performed | Pathologist | | | | | At | Signature | + + + + + + | TIBIA AND | Radiologist 1: ELIA, | | | | | FIBULA, 2 | Kianna GUEVARA-Radiologist | | | | | VIEWS | 2: ADRIÁN DYE, | | | | | | KiannaRIGHT TIBIA AND | | | | | | FIBULA, AP AND LATERAL: | | | | | | 05/16/99 at 0920 hours. | | | | | | Dictated: 05/18/99 | | | | | | COMPARISON: Comparison | | | | | | is made with prior study | | | | | | of 04/11/99. FINDINGS: | | | | | | There is stable | | | | | | positioning of the | | | | | | comminuted | | | | | | proximaltibial and | | | | | | fibular fractures with | | | | | | several sites of bony | | | | | | bridging andresorption | | | | | | at the fracture margins. | | | | | | The fracture | | | | | | fragments are notchanged | | | | | | in position, with | | | | | | slight valgus angulation | | | | | | and | | | | | | posteriordisplacement of | | | | | | the main distal | | | | | | fragments and slight | | | | | | foreshortening ofthe | | | | | | tibia. There is no | | | | | | change in the external | | | | | | fixator device or inthe | | | | | | screws and pins crossing | | | | | | the bicondylar | | | | | | component of the | | | | | | fracture. IMPRESSION: | | | | | | 1. Progressive | | | | | | radiographic healing of | | | | | | comminuted proximal | | | | | | tibial andfibular | | | | | | fractures with external | | | | | | fixator unchanged in | | | | | | position. Thereis no | | | | | | evidence of fixator | | | | | | loosening or fracture. | | | | | | END OF IMPRESSION: | | | | + + + + + + + + | Specimen | + + | | + + + +---------+ + + | Performing | Address | City/State/Zipcode | Phone Number | | Organization | | | | + +---------+ + + | [facility] | | | | [facility] | | | | + +---------+ + + documented in this encounter Visit Diagnoses Not on filedocumented in this encounter"
--- OUTSIDE RECORDS SUMMARY | ~2020-07-29 | XMS | Encounter Summary ---
Demographics + + + | Address | [address] | | | [place] [address] | + + + | Home Phone [...] [place] | | | | | [address] | | + + + + + Care Team Providers + +------+ + | Care Hot Header Operator Name | Role | Phone | + +------+ + | Sharon David MD | PCP | | + +------+ + Reason for Visit + +--------+ + | Reason | Onset | Comments | | | Date | | + +--------+ + | Patient education | 04/21/ | | | | 2019 | | + +--------+ + Encounter Details +--------+ + + + + | Date | Type | Department | Care Team | Description | +--------+ + + + + | 04/21/ | Documentati | Clinical | Porsche Perdomo, | Patient education | | 2019 | on | Transplant Services | RN [address] | | | | | [address] | [address] | | | | | [place], | [place], [place] | | | | | [place] [address] | [address] | | | | | [phone] | | | +--------+ + + + [...] Encounter - Porsche Perdomo RN - 04/21/2019 7:58 AM PDT Liver Transplant Education 04/21/2019 Steffen Kirkkathyjayce [id number] Patient was accompanied by sister Dorene and mother Priyanka. 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 When asked about history of alcohol, the patient states: last drink was 06/1718, 6 pack of beer or better per day. When asked about history of any DUI s, the patient states: 1 from 30 years ago. When asked about history of drug use, the patient states: no. When asked if ever participated in a substance abuse program, patient states: Currently par ticipating in an outpatient treatment through [facility] and court orde red 30 years ago. When asked about history of smoking, the patient states: Chews tobacco, working on quit. The patient s primary and secondary social support will be: Sister Doreen will be primary support and mother Priyanka will be secondary support. Impression: Present at committee. I explained the evaluation, listing, transplant, and post transplant processes. I reviewed the national & center-specific outcomes from the most recent SRTR center-specific report inc luding the transplant center s observed and expected 1-year patient and graft survival, na tional 1-year patient and graft survival, and notification about all Medicare outcome requir ements not being met by the transplant center, see graph below. I also explained that in or mariam to use Medicare benefits post transplant for medication coverage reiumbursement, patient would need to have the transplant at a Medicare approved facility, and [facility] is an approved facility. I explained that high risk donors may be used, but that would be further explained by the s urgeon, and that patient can choose to not accept a high risk donor without negative consequ ences. I explained also, that patient can choose to stop this evaluation process at any angela e, and decide not to proceed with liver transplant. I reviewed the Patient Responsibilities Contract with emphasis on compliance and random nikolas g screens. Patient has read and signed the contract and understands that they must abstain f rom tobacco, alcohol, marijuana and other illegal drugs. Copy to chart, copy to patient. Juan becerril was told that drug testing will be done as part of the evaluation today, and if necess david, patient should return to the lab today over the day in order to give them all the urine that is needed to complete the testing. I reviewed the Informed Consent For the Potential Liver Recipient Evaluation; patient has r ead and signed the consent; all questions addressed, copy to chart and copy to patient. Relocation issues were addressed as well as the need for the support person to be present d uring inpatient stay for teaching after transplant. The patient was given an opportunity to ask questions, and all questions were addressed. Liver Transplant: Pre-Transplant Outpatient Education Class 04/21/2019 Steffen Duran [id number] Patient/Family Readiness to Learn Accurately explains reason for visit: YES Able to relate medical history: YES Special Consideration/ Barriers: None identified Learning Method: Received Pre Transplant Education Booklet Received notification for options of multiple listing, transferring primary waiting time, t ransferring care to a different transplant center without loss of accrued waiting time Received Outline for Group Education Class Attended Education Class (See Protocol for Outline) Learner: Patient and Family Evaluation: States understands material. Additional Notes: The following SRTR data was provided to the patient with their education materials: Graft Survival Data source: SRTR data release October 2018, www.srtr.org Organ and Type 1-year 3-year (Pts Tx d from 04/20/2015-10/20/2017) (Pts Tx d from 10/21/2012- 04/19/2015) [facility] Expected U.S. [facility] Expected U.S. Kidney All organ types 96.67% 96.49% 95.59% 93.43% 91.00% 88.92% -adult -peds 100% 97.92% 97.94% 100% 92.37% 90.66% donor organs only 100% 96.26% 96.36% 90.91% 91.81% 91.34% -kidney -panc Liver 89.68% 90.91% 90.75% 90.32% 84.54% 82.68% Patient Survival Data source: SRTR data release October 2018, www.srtr.org Organ and Type 1-year 3-year (Pts Tx d from 04/20/2015-10/20/2017) (Pts Tx d from 10/21/2012- 04/19/2015) [facility] Expected U.S. [facility] Expected U.S. Kidney All organ types 100% 98.09% 97.55% 97.11% 94.81% 93.66% -adult -peds 100% 99.66% 99.66% 100% 98.55% 98.59% donor organs only 100% 97.97% 97.76% 90.91% 96.56% 95.53% Liver 91.56% 93.05% 92.82% 90.11% 86.45% 85.08% If a transplant is not done in a Medicare-approved transplant center, it could affect the a bility to have immunosuppressive (anti-rejection) medications paid for under Medicare Part B . [facility] is a Medicare-approved transplant center. documented in this en counter Plan of [...] Rd | | | | | | [place] | | | | | | [address] | | | | | | [phone] | | | | | | | | +--------+ + + + + | 09/27/ | Telephone-S | Liver Transplant | Vimal Crowe MD | | | 2019 | cheduled | | [address] | | | | | | [address], | | | | | | [place] [address] | | | | | | [phone] | | | | | | | | +--------+ + + + + | 10/03/ | Appointment | Cardiology | | | | 2019 | | | | | +--------+ + + + + | 10/03/ | Office | Cardiology | Cyril Samuel | | | 2019 | Visit | | MD Patricia [address] | | | | | | [address] | | | | | | [place] | | | | | | [address] | | | | | | [phone] | | | | | | | | +--------+ + + + + documented as of this encounter Visit Diagnoses Not on filedocumented in this encounter"
--- OUTSIDE RECORDS SUMMARY | ~2020-07-29 | XMS | Encounter Summary ---
Demographics + + + | Address | [address] | | | [place] [address] | + + + | Home Phone [...] [place] | | | | | [address] | | + + + + + Care Team Providers + +------+ + | Care Drafter Castings Name | Role | Phone | + +------+ + | Sharon David MD | PCP | | + +------+ + Reason for Visit + + + | Reason | Comments | + + + | Car Gen Record | | | Review | | + + + Encounter Details +--------+ + + + + | Date | Type | Department | Care Team | Description | +--------+ + + + + | 02/17/ | Abstract | Cardiology General | Unknown . | Car Gen Record | | 2019 | | at [facility] [address] | | Review | | | | [facility] | | | | | | [facility] and Healing, | | | | | | Building | | | | | | Floor [place], [place] | | | | | | [address] | | | | | | [phone] | | | +--------+ + + + [...] documented as of this encounter Progress Notes Shannan Mitchell - 02/17/2019 5:34 PM PDTFormatting of this note might be different from the martha gilorena. MD Shannan Anderson 53 yo cirhhosis being considered for transplant but 06/2018 [facility] echo of moderate to sever pulmonary htn Appropriate for fellows clinic? ok Time frame to schedule: routine 0-2 weeks (Emergency) 2-4 weeks (Urgent) 4+ weeks (Routine) Additional testing needed prior to appointment? Will probably need new echo possible right heart when optimized but will wait until seen clinic If yes, please give indication: Additional records needed prior to appointment? Have the 06/2018 [facility] echo images pushed i nto our impax documented in this encounter Plan of Treatment [...] Rd | | | | | | [place], [place] | | | | | | [address] | | | | | | [phone] | | | | | | | | +--------+ + + + + | 09/27/ | Telephone-S | Liver Transplant | Vimal Crowe MD | | | 2019 | [place] | | [address] | | | | | | [address], | | | | | | [place] [address] | | | | | | [phone] | | | | | | | [...] Rd | | | | | | [place], [place] | | | | | | [address] | | | | | | [phone] | | | | | | | | +--------+ + + + + documented as of this encounter Visit Diagnoses Not on filedocumented in this encounter"
--- OUTSIDE RECORDS SUMMARY | ~2020-07-29 | XMS | Encounter Summary ---
Demographics + + + | Address | [address] | | | [place] [address] | + + + | Home Phone [...] [place] | | | | | [address] | | + + + + + Care Team Providers + +------+ + | Care Hotel Operation Manager Name | Role | Phone | + +------+ + | Sharon David MD | PCP | | + +------+ + Encounter Details +--------+--------+ + + + | Date | Type | Department | Care Team | Description | +--------+--------+ + + + | 09/24/ | Travel | | | | | [...] Rd | | | | | | [place], [place] | | | | | | [address] | | | | | | [phone] | | | | | | | | +--------+ + + + + | 09/27/ | Telephone-S | Liver Transplant | Vimal Crowe MD | | | 2019 | [place] | | [address] | | | | | | [address], | | | | | | [place] [address] | | | | | | [phone] | | | | | | | [...] [place] | | | | | | [address] | | | | | | [phone] | | | | | | | | +--------+ + + + + documented as of this encounter Visit Diagnoses Not on filedocumented in this encounter"
--- OUTSIDE RECORDS SUMMARY | ~2020-07-29 | XMS | Encounter Summary ---
Demographics + + + | Address | [address] | | | [place] [address] | + + + | Home Phone [...] [place] | | | | | [address] | | + + + + + Care Team Providers + +------+ + | Care Process Consultant Name | Role | Phone | + +------+ + | Sharon David MD | PCP | | + +------+ + Encounter Details +--------+ + + + + | Date | Type | Department | Care Team | Description | +--------+ + + + + | 10/09/ | Documentati | Liver Transplant | Dileep Lee, | | | 2019 | on | at [facility] [address] | PharmD [address] | | | | | [address] | [facility] | | | | | Physician's | [place] [address] | | | | | [place], 2nd floor | [phone] | | | | | [place], [place] | | | | | | [address] | | | | | | [phone] | | | +--------+ + + + [...] Telephone Encounter - Dileep Lee PharmD - 10/09/2019 9:49 AM PST Pharmacy Services: Liver Transplant Pharmacist [...] range. Plan: Immunosuppression: see Medication list Prophylaxis: Valcyte adjusted for renal Fx Diabetes: per endocrinology consult Hypertension: in good control, continue current medications Osteoporosis: continue supplemental calcium with vitamin D and plan for a bone scan at 6 mo nths post transplant Hypomagnesemia: continue supplemental magnesium replacement Fluid status: stable, off diuretics Renal: Scr 2.2 today, asked him to drink more fluids, lab in 2 days [Sat10/12/2019] Hyper-K; Kayexalate was ordered for PRN high K+ Mental Health: Mirtazapine was started for insomnia and mood Vitals: There were no vitals taken for [...] (HCC) Liver transplant status (HCC) Pharmacy Preferences: [facility] [address] [place] [address] Hours: 8am-9pm Mon-sat; 9-5:30pm Sat-sun E-Prescribing: Yes E-Prescribing Control Substances: Yes [facility] [address] [place] [address] Hours: 9am-7pm Sat-sat / 9am-6pm Sat / Closed Sun E-Prescribing: Yes E-Prescribing Control Substances: Yes [facility] [place] [address] Hours: 8am-6pm Sat-sat E-Prescribing: Yes E-Prescribing Control Substances: Yes [facility]. [facility] [place] [address] Hours: 8am-430pm Sat-saturday/closed Sat&sun E-Prescribing: Yes E-Prescribing [...] Take 10 mL by mouth once daily. BLOOD SUGAR DIAGNOSTIC [...] Take 1 tablet by mouth once daily. INSULIN LISPRO (U-100) 100 UNIT/ML SUBCUTANEOUS PEN [...] mouth once daily. Indications: high blood pressure MIRTAZAPINE 15 MG TABLET Take 1 tablet by mouth once daily in the evening for 14 days. Joceline cations: lack of appetite MISCELLANEOUS MEDICAL SUPPLY MISC Chlorhexidine prep sticks (small) MULTIVITAMIN TABLET Take 1 tablet by mouth once daily. Indications: Treatment To Prevent Vi tamin Deficiency MYCOPHENOLATE MOFETIL 250 MG CAPSULE Take 4 capsules by mouth two times daily. Indications: liver transplant rejection prevention OMEPRAZOLE 20 MG CAPSULE,DELAYED RELEASE Take 1 capsule by mouth once daily. Indications: h eartburn PREDNISONE 5 MG TABLET Take 1 tablet by mouth once daily. Indications: liver transplant rej ection prevention SODIUM POLYSTYRENE SULFONATE 15 GRAM-SORBITOL 20 GRAM/60 ML ORAL SUSP Take 60 mL by mouth o nce daily for 2 days. If needed TACROLIMUS 1 MG CAPSULE Take 2 capsules by mouth two times daily. Indications: liver transp lant rejection prevention SULFAMETHOXAZOLE 400 MG-TRIMETHOPRIM 80 MG TABLET Take 1 tablet by mouth once daily. Indica tions: pneumonia prevention VALGANCICLOVIR 450 MG TABLET Take 1 tablet by mouth three times weekly (on Saturday, y and Saturday). Indications: viral infection prevention Assessment/Recommendations: 1. Immunosuppression: - MMF 1000 mg po bid -Prednisone 5 mg daily - -Tacrolimus 2 mg po bid - 12-hour trough level = [id number] Date Value Ref Range Status 10/01/2019 5.9 5.0 - 15.0 ng/mL Final 09/28/2019 5.0 5.0 - 15.0 ng/mL Final 09/24/2019 5.9 5.0 - 15.0 ng/mL Final 2. Electrolytes -Vitamin D -Multivitamin -Calcium -Phosphate level: PO4 Date Value Ref Range Status 10/09/2019 4.6 2.4 - 4.7 mg/dL Final -Magnesium level: MG Date Value Ref Range Status 10/09/2019 1.7 1.6 - 2.6 mg/dL Final 3. Vitals Pain: well controlled Wt Readings from Last 1 Encounters: 10/05/19 83.1 kg (183 lb 4.8 oz) Ht Readings from Last 1 Encounters: 09/25/19 71" Last 1 Encounter BMI Readings: Date BMI 10/09/2019 24.83 kg/m2 Labs/vitals: Recent Labs 10/09/19 0812 WBC 6.12 HB 10.6* HCT 33.4* PLT 105* Recent Labs 10/09/19 0812 K 5.1* BUN 47* CR 2.14* MG 1.7 CA 9.7 PO4 4.6 TBILI 0.4 AST 8 ALT 22 Medication management: all medications were reviewed for [...] questions regarding this information contact pharmacy, pager #[phone] Thank you, Dileep Lee PharmD, [facility] Clinical Pharmacist do cumented in this encounter [...] Rd | | | | | | [place], [place] | | | | | | [address] | | | | | | [phone] | | | | | | | | +--------+ + + + + | 09/27/ | Telephone-S | Liver Transplant | Vimal Crowe MD | | 2019 | cheduled | | [address] | | | | | | [address], | | | | | | [place] [address] | | | | | | [phone] | | | | | | | [...] [place] | | | | | | [address] | | | | | | [phone] | | | | | | | | +--------+ + + + + documented as of this encounter Visit Diagnoses Not on filedocumented in this encounter
--- OUTSIDE RECORDS SUMMARY | ~2020-07-29 | XMS | Encounter Summary ---
Demographics + + + | Address | [address] | | | [place] [address] | + + + | Home Phone [...] [place] | | | | | [address] | | + + + + + Care Team Providers + +------+ + | Care Rn Clinical Documentation Specialist Name | Role | Phone | + +------+ + | Sharon David MD | PCP | | + +------+ + Reason for Visit + +--------+ + | Reason | Onset | Comments | | | Date | | + +--------+ + | Blood Test Results | 03/18/ | | | | 2018 | | + +--------+ + Encounter Details +--------+ + + + + | Date | Type | Department | Care Team | Description | +--------+ + + + + | 03/18/ | Abstract | Digestive Health | Vimal Crowe MD | Blood Test Results | | 2019 | | Center at [facility] [address] | [address] | | | | | [address] | [address] [place], | | | | | [facility] and | [place] [address] | | | | | [place] [address] | [phone] | | | | | [place], [place] | | | | | | [address] | | | | | | [phone] | | | +--------+ + + + [...] Rd | | | | | | [place], [place] | | | | | | [address] | | | | | | [phone] | | | | | | | | +--------+ + + + + | 09/27/ | Telephone-S | Liver Transplant | Vimal Crowe MD | | | 2019 | [place] | | [address] | | | | | | [address], | | | | | | [place] [address] | | | | | | [phone] | | | | | | | [...] [place] | | | | | | [address] | | | | | | [phone] | | | | | | | | +--------+ + + + + documented as of this encounter Visit Diagnoses Not on filedocumented in this encounter"
--- OUTSIDE RECORDS SUMMARY | ~2020-07-29 | XMS | Encounter Summary ---
Demographics + + + | Address | [address] | | | [place] [address] | + + + | Home Phone [...] [place] | | | | | [address] | | + + + + + Care Team Providers + +------+ + | Care Business Support Name | Role | Phone | + +------+ + | Sharon David MD | PCP | | + +------+ + Encounter Details +--------+ + + + + | Date | Type | Department | Care Team | Description | +--------+ + + + + | 05/21/ | Pharmacy | [facility] @ [facility] | | | | 2019 | Visit | [address] | | | | | | [address] Mailcode: | | | | | | [facility] | | | | | | and Healing, | | | | | | Building [address] | | | | | | [place], [place] | | | | | | [address] | | | +--------+ + + + [...] Rd | | | | | | [place], [place] | | | | | | [address] | | | | | | [phone] | | | | | | | | +--------+ + + + + | 09/27/ | Telephone-S | Liver Transplant | Vimal Crowe MD | | | 2019 | cheduled | | [address] | | | | | | [facility] [address] [place], | | | | | | [place] [address] | | | | | | [phone] | | | | | | | [...] Rd | | | | | | [place] | | | | | | [address] | | | | | | [phone] | | | | | | | | +--------+ + + + + documented as of this encounter Visit Diagnoses Not on filedocumented in this encounter"
--- OUTSIDE RECORDS SUMMARY | ~2020-07-29 | XMS | Encounter Summary ---
Demographics + + + | Address | [address] | | | [place] [address] | + + + | Home Phone [...] [place] | | | | | [address] | | + + + + + Care Team Providers + +------+ + | Care Collar Baster Jumpbasting Name | Role | Phone | + +------+ + | Sharon David MD | PCP | | + +------+ + Reason for Visit + + + | Reason | Comments | + + + | Liver Transplant | progrf dose change | | Follow Up | | + + + Encounter Details +--------+ + + + + | Date | Type | Department | Care Team | Description | +--------+ + + + + | 09/07/ | Documentati | Clinical | Nisreen Chakraborty, | Liver Transplant | | 2019 | on | Transplant Services | [address] | Follow Up (progrf | | | | [address] | Amonate [place] | dose change) | | | | Patricia [place], | [place], [place] | | | | | [place] [address] | [address] | | | | | [phone] | [phone] | | | | | | | [...] Telephone Encounter - Judie Mota RN - 09/07/2019 1:20 PM PSTPrograf level low on a dose of 4/4 increase to 5/5 per Nisreen Chakraborty PA-C. LVM for patient on sisters primary phon e with instructions and request for call back verification. Will also send [employer] message w reminder. documented in this encounter Plan of Treatment +--------+ + + + + | Date | Type | Specialty | Care Team | Description | +--------+ + + + + | 08/08/ | Telephone-S | Nephrology | Angélica Chao, | | | 2019 | [place] | | [address] | | | | | | [address] | | | | | | [place], [place] | | | | | | [address] | | | | | | [phone] | | | | | | | | +--------+ + + + + | 09/27/ | Telephone-S | Liver Transplant | Vimal Crowe MD | | 2019 | cheduled | | [address] | | | | | | [address], | | | | | | [place] [address] | | | | | | [phone] | | | | | | | [...] Rd | | | | | | [place], [place] | | | | | | [address] | | | | | | [phone] | | | | | | | | +--------+ + + + + documented as of this encounter Visit Diagnoses Not on filedocumented in this encounter"
--- OUTSIDE RECORDS SUMMARY | ~2020-07-29 | XMS | Encounter Summary ---
Demographics + + + | Address | [address] | | | [place] [address] | + + + | Home Phone [...] [place] | | | | | [address] | | + + + + + Care Team Providers + +------+ + | Care Button Broacher Name | Role | Phone | + +------+ + | Sharon David MD | PCP | | + +------+ + Encounter Details +--------+ + + + + | Date | Type | Department | Care Team | Description | +--------+ + + + + | 11/30/ | Pharmacy | [facility] | | | | 2020 | Visit | [address] | | | | | | [address] | | | | | | [place] [address] | | | | | | [phone] | | | +--------+ + + + [...] Rd | | | | | | [place], [place] | | | | | | [address] | | | | | | [phone] | | | | | | | | +--------+ + + + + | 09/27/ | Telephone-S | Liver Transplant | Vimal Crowe MD | | | 2019 | cheduled | | [address] | | | | | | [address], | | | | | | [place] [address] | | | | | | [phone] | | | | | | | [...] Rd | | | | | | [place] | | | | | | [address] | | | | | | [phone] | | | | | | | | +--------+ + + + + documented as of this encounter Visit Diagnoses Not on filedocumented in this encounter"
--- OUTSIDE RECORDS SUMMARY | ~2020-07-29 | XMS | Encounter Summary ---
Demographics + + + | Address | [address] | | | [place] [address] | + + + | Home Phone [...] [place] | | | | | [address] | | + + + + + Care Team Providers + +------+ + | Care Survey Chief Name | Role | Phone | + +------+ + | Sharon David MD | PCP | | + +------+ + Encounter Details +--------+ + + + + | Date | Type | Department | Care Team | Description | +--------+ + + + + | 11/17/ | Documentati | Liver Transplant | Liv Stephenson, | | | 2019 | on | at [facility] [address] BREAST PULLER [address] | | | | | [address] | [address] | | | | | [address] | [place], [place] | | | | | [place], [place] | [address] | | | | | [address] | [phone] | | | | | [phone] | | | +--------+ + + + [...] Miscellaneous Notes Telephone Encounter - Liv Stephenson LCSW - 11/24/2019 3:50 PM PSTLiver Transplant Socia l Work- Post Transplant Clinic Note LTX SW met with pt in conjuction with clinic appointment on 11/17/19. Pt received a liver tr ansplant on 08/16/19. Progress: Pt reports he's doing much better, he's getting ready to move into his new apartment and fe els ready to have his own place. Pt denied any concerns or questions. Locomotive Boilermaker encouraged pt to reach out should he need anything. Assessment: pt appears to be doing better each visit, he is more engaged and closer to base line than he has been since transplant. Follow Up Plan: JACOBY will continue to be available to provide support and assistance as vic Stephenson LCSW Liver Transplant Wind Turbine Installer Pager [phone] documented in this encounter Plan of Treatment [...] Rd | | | | | | [place], [place] | | | | | | [address] | | | | | | [phone] | | | | | | | | +--------+ + + + + | 09/27/ | Telephone-S | Liver Transplant | Vimal Crowe MD | | | 2019 | cheduled | | [address] | | | | | | [facility] [place], | | | | | | [place] [address] | | | | | | [phone] | | | | | | | | +--------+ + + + + | 10/03/ | Appointment | Cardiology | | | | 2019 | | | | | +--------+ + + + + | 10/03/ | Office | Cardiology | Cyril Samuel | | | 2019 | Visit | | MD Patricia [address] [facility] | | | | | | [address] | | | | | | [place] | | | | | | [address] | | | | | | [phone] | | | | | | | | +--------+ + + + + documented as of this encounter Visit Diagnoses Not on filedocumented in this encounter"
--- OUTSIDE RECORDS SUMMARY | ~2020-07-29 | XMS | Encounter Summary ---
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 Health | | | | | ascites | Rd | and Healing, | | | | | (HCC) | [place], [place] | [address], | | | | | Procedures | [address] | 1st Floor | | | | | PHYSICAL | Phone: | [place], [place] | | | | | THERAPY | [phone] | [address] | | | | | REFERRAL | | Phone: | | | | | | | [phone] | | | | | | | Fax: | | | | | | | [phone] | +--------+--------+ + + + + Encounter Details +--------+---------+ + + + | Date | Type | Department | Care Team | Description | +--------+---------+ + + + | 11/11/ | Office | [facility] Physical | Dennys Hinson, PT | Difficulty walking | | 2020 | Visit | Therapy Services at | [address] | (Primary Dx); Leg | | | | [place] [address] [place], | edema; Status post | | | | [address] | [place] [address] | liver transplant | | | | [place] for [facility] | [phone] | (HCC) | | | | and Healing, | | | | | | Building 1, 1st | | | | | | Floor [place], [place] | | | | | | [address] | | | | | | [phone] | | | +--------+---------+ + + + [...] encounter Progress Notes Dennys Hinson, PT - 11/11/2019 2:00 PM PST Insurance: Payor: [facility] / Plan[place] [facility] [place] / Product Type: Medicaid / Non-Medicare SUBJECTIVE: Doing laundry going up and down stairs 4x felt sore in legs after for a day. Foot swelling goes down by morning but it is up today this afternoon. He is preparing to return to [place]. Had hospital stay for about 2 weeks [...] time "its amazing" Transport: medical Post op: 10 weeks Liver Transplant History of Presenting Problems: [...] months. Walking in home, outdoors-yesterday went to [place] for the day did a little walking. [...] for 8-12 weeks. OBJECTIVE: Vitals today: BP 145/78 HR 67 bpm PO2 99% Observation/Posture: Alert, mood good. Feet swollen pitting edema- this has been ongoing for patient. Range Of Motion: gastroc tight 0 DF Strength: UE grossly 5/5, ankles, knees 5/5 Able to toe rise and heel rise with 2H Motor Control: no significant tremor today Sensation: light touch intact feet/toes Vision and eye movements: no problems reported. Balance: at times sways too far laterally and able to compensated with recovery step of slo wing down. Gait: walking to appt with no AD [...] able to stay on straight path. Treatment: warm up 8 minutes Seated stepper with arms on 2 min. x2 Biceps curls 3 lbs 8x2 Shoulder flexion 3 lbs 90 deg 8x2 Shoulder abduction 3 lbs 90 deg 8x2 Scapula rowing gn band 8x2 Lunges 5x each side Instructed in LE edema reduction exercises in supine handout provided Education: Elevate feet x2 approx 30 minutes Home program: Exercise Date given Ankle pumps in sitting 10x 3x day 09/03/2019 LAQ 10x 3x day 09/03/[address] 10x 3x day 09/03/2019 Mini squat 10x 3x day 09/03/2019 Bridging 10x 3x day 09/21/2019 Rowing Side lunges 09/28 Walk 10 minutes 2-3x day 10/29/2019 Biceps curls Shoulder flys fl/abd LE edema exercises 11/05/2019 ASSESSMENT: Improved mood and posture. Able to tolerate light resisted exercises with less breaks. FUNCTIONAL GOALS: due in 12 weeks Goal 09/03/2019 Status @ eval (09/03/2019) Status of goal (11/05/2019) Pt will be consistent and independent with home exercise program to promote self-efficacy(11/03/2018) Home exercise program initiated Appears compliant with exercises. Pt will be able to walk 6 minutes in his age norms to show improved cardio (09/03/2019) 25 ft >6 sec 8 minutes on nu step Patient will be able to transfer without support (09/03/2019) 2H slow and painful 1 H suppo rt PLAN Next visit plan: progress leg strengthening exercises. Endurance exercises Requested update in referral from referring MD. This note is to serve as the discharge summary if the patient fails to attend further Physi julia Therapy appointments or contact the therapist regarding any change in their status. DENNYS HINSON, PT [facility] Scheduled Appointment time: 1400 The patient was seen for a total of 45 minutes of treatment time. 45 minutes was in direct contact care as described above and on completed flow sheets. Treatment Interventions duration in minutes: Procedure: Therapeutic Exercise 45 min Authorization information for first visit and progress reports Procedure Codes: Therapeutic Exercise 15577 and Gait Training 51013 Minutes per session: 45 Total number of [...] walking Next progress report 11/02/2019 Insurance: Payor: [facility] [place] / Plan: [facility] [place] / Product Type: Medicaid / Number [...] | | 2019 | [place] | | [address] [facility] | | | | | | [address] | | | | | | [place], [place] | | | | | | [address] | | | | | | [phone] | | | | | | | | +--------+ + + + + | 09/27/ | Telephone-S | Liver Transplant | Vimal Crowe MD | | | 2019 | [place] | | [address] | | | | | | [address], | | | | | | [place] [address] | | | | | | [phone] | | | | | | | | +--------+ + + + + | 10/03/ | Appointment | Cardiology | | | | 2019 | | | | | +--------+ + + + + | 10/03/ | Office | Cardiology | Cyril Samuel | | | 2019 | Visit | | MD Patricia [address] [facility] | | | | | | [address] | | | | | | [place], [place] | | | | | | [address] | | | | | | [phone] | | | | | | | | +--------+ + + + + documented as of this encounter Procedures + +--------+ + + + | Procedure Name | Priori | Date/Time | Associated Diagnosis | Comments | | | ty | | | | + +--------+ + + + | OK THERAPEUTIC | Routin | 11/16/2019 | Difficulty walking | | | EXERCISES | e | 9:08 AM | Leg edema Status | | [...]
--- OUTSIDE RECORDS SUMMARY | ~2020-07-29 | XMS | Encounter Summary ---
Demographics + + + | Address | [address] | | | [place] [address] | + + + | Home Phone [...] [place] | | | | | [address] | | + + + + + Care Team Providers + +------+ + | Care Enrollment Counselor Name | Role | Phone | + +------+ + | Ignacio Caldwell MD | PCP | | + +------+ + Encounter Details +--------+ + + + + | Date | Type | Department | Care Team | Description | +--------+ + + + + | 03/27/ | Procedure - | | Record, Operation [...] as of this encounter Procedure Notes Interface, Motor Vehicle Operator Road Supervisor In - 10/09/2006 3:[address] [address] [facility] OPERATION RECORD Med Rec No.: [id number] Date: 03/27/1999 Name: Steffen Duran ATTENDING SURGEON (S): Rod Velasquez M.D. MECHANICAL SYSTEMS CONTROL ENGINEER (S): Kianna Le M.D. PREOPERATIVE DIAGNOSIS: 1. Right open tibia fracture. 2. Right tibia plateau fracture. POSTOPERATIVE DIAGNOSIS: 1. Right open tibia fracture. 2. Right tibia plateau fracture. OPERATION (S) PERFORMED: 1. Percutaneous screw fixation of right tibial plateau fracture. 2. Hyper-external fixation of right open tibial fracture. ANESTHESIA: General. TOURNIQUET TIME: None. ESTIMATED BLOOD LOSS: Less than 50 cc. SPECIMEN (S) REMOVED: Not dictated. INDICATIONS: This 34-year-old man suffered an open tibia fracture approximately nine days ago. He had an initial incision and drainage (I D) and external fixator placed at that time. The indications, risk, and benefits for proceeding with this second procedure were discussed with the patient and he wanted to proceed. He signed a consent to that effect. PROCEDURE (S): The patient was properly identified, taken to the Operating Room, placed supine on the operating table. Anesthesia was given per the Anesthesia Service. The right lower extremity was then sterilely prepped and draped in normal fashion. Under fluoroscopic guidance, assorted K-wires were placed across the tibial plateau parallel to the tibial plateau surface. These were confirmed in two planes. Then threaded 6.0 cannulated screws were placed over them with a washer. Next attention was turned to the tibial diaphyseal fracture. Three Schanz screws were placed in the tibial diaphysis distally to the fracture. These were connected by one bar. Then three tension wires were placed across the tibia metaphyseal junction proximately. These were placed under fluoroscopic guidance. Once the position was confirmed, a half ring was connected to them and then the wires were all tensioned to being between 100 and 130 units of tension. These wires were then secured to the frame, and then this half frame was affixed to the three Schanz pins in the tibia of the external fixation in order to achieve a reduction of the tibial fracture. This was again performed under fluoroscopy guidance in orthogonal views. Once this was achieved, the right lower extremity was cleaned. The proximal tibial skin wound was closed with three nylon stitches. However, this was unable to be closed completely due to loss of skin. The wounds were then cleaned and dried and sterile dressing of Xeroform placed across all of them, followed by sterile Kerlix and GABO wrap. The patient was then recovered from anesthesia and brought to the Recovery Room in good apparent condition. PLAN: The patient will receive intravenous antibiotics and have x-rays obtained postoperatively. He will be touch-down weightbearing on the right lower extremity if this is in accordance of weightbearing per Neurosurgery. The patient will be in pin site care and wound care to the proximal tibia tomorrow. Pablo Mota M.D. Rod Velasquez M.D. TU:[id number] #[id number] CC: documentjayce d in this encounter Plan of Treatment +--------+ + + + + | Date | Type | Specialty | Care Team | Description | +--------+ + + + + | 08/08/ | Telephone-S | Nephrology | Angélica Chao, | | | 2019 | [place] | | [address] | | | | | | [address] | | | | | | [place], [place] | | | | | | [address] | | | | | | [phone] | | | | | | | | +--------+ + + + + | 09/27/ | Telephone-S | Liver Transplant | Vimal Crowe MD | | | 2019 | cheduled | | [address] | | | | | | [place], | | | | | | [place] [address] | | | | | | [phone] | | | | | | | | +--------+ + + + + | 10/03/ | Appointment | Cardiology | | | | 2019 | | | | | +--------+ + + + + | 10/03/ | Office | Cardiology | Cyril Samuel | | | 2019 | Visit | | MD Patricia [address] [facility] | | | | | | [address] | | | | | | [place], [place] | | | | | | [address] | | | | | | [phone] | | | | | | | | +--------+ + + + + documented as of this encounter Procedures + +--------+ + + + | Procedure Name | Priori | Date/Time | Associated Diagnosis | Comments | | | ty | | | | + +--------+ + + + | OPERATION RECORD | | 03/27/1999 | | Results for this | | | | | | procedure are in the | | | | | | results section. | + +--------+ + + + documented in this encounter Results OPERATION RECORD (03/27/1999) + + | Transcriptions | + + | Interface, Motor Vehicle Operator Road Supervisor In - 10/09/2006 3:09 AM PST | | [address] | | [place], [place] [address] | | [facility] Rec No.: | | [id number] Date: 03/27/1999Name: Debbie Duran SURGEON (S): | | Rod Velasquez M.D.MECHANICAL SYSTEMS CONTROL ENGINEER (S): Pablo Mota M.D. | | Alberto Mead M.D.PREOPERATIVE DIAGNOSIS:1. Right open | | tibia fracture.2. Right tibia plateau fracture.POSTOPERATIVE DIAGNOSIS:1. Right open | | tibia fracture.2. Right tibia plateau fracture.OPERATION (S) PERFORMED:1. Percutaneous | | screw fixation of right tibial plateau fracture.2. Hyper-external fixation of right | | open tibial fracture.ANESTHESIA:General.TOURNIQUET TIME:None.ESTIMATED BLOOD LOSS:Less | | than 50 cc.SPECIMEN (S) REMOVED:Not dictated.INDICATIONS:This 34-year-old man suffered | | an open tibia fracture approximately ninedays ago. He had an initial incision and | | drainage (I D) and externalfixator placed at that time. The indications, risk, | | and benefits forproceeding with this second procedure were discussed with the | | patient andhe wanted to proceed. He signed a consent to that effect.PROCEDURE (S):The | | patient was properly identified, taken to the Operating Room, placedsupine on the | | operating table. Anesthesia was given per the AnesthesiaService. The right lower | | extremity was then sterilely prepped and draped innormal fashion. Under fluoroscopic | | guidance, assorted K-wires were placedacross the tibial plateau parallel to the | | tibial plateau surface. Thesewere confirmed in two planes. Then threaded 6.0 | | cannulated screws wereplaced over them with a washer. Next attention was turned to | | the tibialdiaphyseal fracture. Three Schanz screws were placed in the | | tibialdiaphysis distally to the fracture. These were connected by one bar. Thenthree | | tension wires were placed across the tibia metaphyseal junctionproximately. These | | were placed under fluoroscopic guidance. Once theposition was confirmed, a half | | ring was connected to them and then thewires were all tensioned to being between | | 100 and 130 units of tension.These wires were then secured to the frame, and then | | this half frame wasaffixed to the three Schanz pins in the tibia of the external | | fixation inorder to achieve a reduction of the tibial fracture. This was | | againperformed under fluoroscopy guidance in orthogonal views. Once this | | wasachieved, the right lower extremity was cleaned. The proximal tibial skinwound was | | closed with three nylon stitches. However, this was unable to beclosed completely due | | to loss of skin. The wounds were then cleaned anddried and sterile dressing of | | Xeroform placed across all of them, followedby sterile Kerlix and GABO wrap. The | | patient was then recovered fromanesthesia and brought to the Recovery Room in good | | apparent condition.PLAN:The patient will receive intravenous antibiotics and have | | x-rays obtainedpostoperatively. He will be touch-down weightbearing on the right | | lowerextremity if this is in accordance of weightbearing per Neurosurgery.The patient | | will be in pin site care and wound care to the proximal tibiatomorrow.Pablo Mota M.D. | | Rod Velasquez M.D.TU:xt8D: 03/27/1999T: 03/28/1999#[id number]: | |INDICATIONS: | |This 34-year-old man suffered an open tibia fracture approximately nine | |days ago. He had an initial incision and drainage (I D) and external | |fixator placed at that time. The indications, risk, and benefits for | |proceeding with this second procedure were discussed with the patient and | |he wanted to proceed. He signed a consent to that effect. | | | |PROCEDURE (S): | |The patient was properly identified, taken to the Operating Room, placed | |supine on the operating table. Anesthesia was given per the Anesthesia | |Service. The right lower extremity was then sterilely prepped and draped in | |normal fashion. Under fluoroscopic guidance, assorted K-wires were placed | |across the tibial plateau parallel to the tibial plateau surface. These | |were confirmed in two planes. Then threaded 6.0 cannulated screws were | |placed over them with a washer. Next attention was turned to the tibial | |diaphyseal fracture. Three Schanz screws were placed in the tibial | |diaphysis distally to the fracture. These were connected by one bar. Then | |three tension wires were placed across the tibia metaphyseal junction | |proximately. These were placed under fluoroscopic guidance. Once the | |position was confirmed, a half ring was connected to them and then the | |wires were all tensioned to being between 100 and 130 units of tension. | |These wires were then secured to the frame, and then this half frame was | |affixed to the three Schanz pins in the tibia of the external fixation in | |order to achieve a reduction of the tibial fracture. This was again | |performed under fluoroscopy guidance in orthogonal views. Once this was | |achieved, the right lower extremity was cleaned. The proximal tibial skin | |wound was closed with three nylon stitches. However, this was unable to be | |closed completely due to loss of skin. The wounds were then cleaned and | |dried and sterile dressing of Xeroform placed across all of them, followed | |by sterile Kerlix and GABO wrap. The patient was then recovered from | |anesthesia and brought to the Recovery Room in good apparent condition. | | | |PLAN: | |The patient will receive intravenous antibiotics and have x-rays obtained | |postoperatively. He will be touch-down weightbearing on the right lower | |extremity if this is in accordance of weightbearing per Neurosurgery. | | | |The patient will be in pin site care and wound care to the proximal tibia | |tomorrow. | | | | | | | |Pablo Mota M.D. Rod Velasquez M.D. | | | |TU:xt8 | | | | | | | | | |#[id number] | | | | | | | | | |[id number] | |CC: | + + documented in this encounter Visit Diagnoses Not on filedocumented in this encounter"
--- OUTSIDE RECORDS SUMMARY | ~2020-07-29 | XMS | Encounter Summary ---
Demographics + + + | Address | [address] | | | [place] [address] | + + + | Home Phone [...] [place] | | | | | [address] | | + + + + + Care Team Providers + +------+ + | Care Press Smith Helper Name | Role | Phone | [...] 2019 | | [facility] at [facility] | [address] | | | | | [address] | [address] | | | | | Loop Physician's | [place], [place] | | | | | [place], [facility] floor | [address] | | | | | [place], [place] | [phone] | | | | | [address] | | | | | | [phone] | | | +--------+ + + + [...] Encounter - Filippo Mccurdy MA - 05/17/2020 8:24 AM PDTWas unable to get in conta ct with the medical records department. Faxed request to the medical records department [place] that they fax us the kidney & Bladder results. Filippo Mccurdy MA elephone Encounter - S Filippo solorzano MA - 05/17/2020 8:24 AM PDT----- Message from Angélica Chao MD sent at 04/21 4:10 PM PDT ----- Regarding: kidney ultrasound? Per pt, he completed kidney ultrasound 05/10 at [phone]. We hav e not received results. Can you please call for results? Thanks very much, JWeiss documented in this enco unter Plan [...] [place] | | | | | | [address] | | | | | | [phone] | | | | | | | | +--------+ + + + + | 09/27/ | Telephone-S | Liver Transplant | Vimal Crowe MD | | | 2019 | cherohini | | [address] | | | | | | [address] | | | | | | [place] [address] | | | | | | [phone] | | | | | | | | +--------+ + + + + | 10/03/ | Appointment | Cardiology | | | | 2019 | | | | | +--------+ + + + + | 10/03/ | Office | Cardiology | Cyril Samuel | | | 2019 | Visit | | MD Patricia [address] | | | | | | [address] | | | | | | [place] | | | | | | [address] | | | | | | [phone] | | | | | | | | +--------+ + + + + documented as of this encounter Visit Diagnoses Not on filedocumented in this encounter"
--- OUTSIDE RECORDS SUMMARY | ~2020-07-29 | XMS | Encounter Summary ---
Demographics + + + | Address | [address] | | | [place] [address] | + + + | Home Phone [...] [place] | | | | | [address] | | + + + + + Care Team Providers + +------+ + | Care Evaluation Manager Name | Role | Phone | + +------+ + | Sharon David MD | PCP | | + +------+ + Encounter Details +--------+ + + + + | Date | Type | Department | Care Team | Description | +--------+ + + + + | 05/10/ | Pharmacy | [facility] | | | | 2020 | Visit | [address] | | | | | | [address] | | | | | | [place] [address] | | | | | | [phone] | | | +--------+ + + + [...] Rd | | | | | | [place], [place] | | | | | | [address] | | | | | | [phone] | | | | | | | | +--------+ + + + + | 09/27/ | Telephone-S | Liver Transplant | Vimal Crowe MD | | | 2019 | cheduled | | [address] | | | | | | [address], | | | | | | [place] [address] | | | | | | [phone] | | | | | | | [...] Rd | | | | | | [place] | | | | | | [address] | | | | | | [phone] | | | | | | | | +--------+ + + + + documented as of this encounter Visit Diagnoses Not on filedocumented in this encounter"
--- OUTSIDE RECORDS SUMMARY | ~2020-07-29 | XMS | Encounter Summary ---
Demographics + + + | Address | [address] | | | [place] [address] | + + + | Home Phone [...] [place] | | | | | [address] | | + + + + + Care Team Providers + +------+ + | Care Armored Transport Service Manager Name | Role | Phone | + +------+ + | Sharon David MD | PCP | | + +------+ + Encounter Details +--------+ + + + + | Date | Type | Department | Care Team | Description | +--------+ + + + + | 09/11/ | Pharmacy | Specialty Pharmacy | | | | 2019 | Visit | Services [address] | | | | | [address] | | | | | | [place], [place] | | | | | | [address] | | | | | | [phone] | | | +--------+ + + + [...] | 08/08/ | Telephone-S | Nephrology | Angélcia Chao, | | | 2019 | [place] | | [address] | | | | | | [address] | | | | | | [place], [place] | | | | | | [address] | | | | | | [phone] | | | | | | | | +--------+ + + + + | 09/27/ | Telephone-S | Liver Transplant | Vimal Crowe MD | | | 2019 | cheduled | | [address] | | | | | | [facility] [place], | | | | | | [place] [address] | | | | | | [phone] | | | | | | | | +--------+ + + + + | 10/03/ | Appointment | Cardiology | | | | 2019 | | | | | +--------+ + + + + | 10/03/ | Office | Cardiology | Cyril Samuel | | | 2019 | Visit | | MD Patricia [address] | | | | | | [address] | | | | | | [place], [place] | | | | | | [address] | | | | | | [phone] | | | | | | | | +--------+ + + + + documented as of this encounter Visit Diagnoses Not on filedocumented in this encounter"
--- OUTSIDE RECORDS SUMMARY | ~2020-07-29 | XMS | Encounter Summary ---
Demographics + + + | Address | [address] | | | [place] [address] | + + + | Home Phone [...] [place] | | | | | [address] | | + + + + + Care Team Providers + +------+ + | Care Technician Automated Equipment Name | Role | Phone | + [...] Description | +--------+--------+ + + + | 05/10/ | Refill | Clinical | Sharon David | Refill Request | | 2020 | | Transplant Services | MD Lei [address] | | | | | [address] | [address] | | | | | Patricia [place], | [place] [address] | | | | | [place] [address] | [phone] | | | | | [phone] | | | +--------+--------+ + + + [...] Rd | | | | | | [place], [place] | | | | | | [address] | | | | | | [phone] | | | | | | | | +--------+ + + + + | 09/27/ | Telephone-S | Liver Transplant | Vimal Crowe MD | | | 2019 | cherohini | | [address] | | | | | | [address], | | | | | | [place] [address] | | | | | | [phone] | | | | | | | [...] [place] | | | | | | [address] | | | | | | [phone] | | | | | | | | +--------+ + + + + documented as of this encounter Visit Diagnoses Not on filedocumented in this encounter"
--- OUTSIDE RECORDS SUMMARY | ~2020-07-29 | XMS | Encounter Summary ---
Demographics + + + | Address | [address] | | | [place] [address] | + + + | Home Phone [...] [place] | | | | | [address] | | + + + + + Care Team Providers + +------+ + | Care Shoulder Joiner Name | Role | Phone | + +------+ + | Sharon David MD | PCP | | + +------+ + Encounter Details +--------+ + + + + | Date | Type | Department | Care Team | Description | +--------+ + + + + | 08/05/ | Pharmacy | Outpatient Retail | | | | 2018 | Visit | [facility] | | | | | | [address] | | | | | | Loop [place], [place] | | | | | | [address] | | | | | | [phone] | | | +--------+ + + + [...] Rd | | | | | | [place], [place] | | | | | | [address] | | | | | | [phone] | | | | | | | | +--------+ + + + + | 09/27/ | Telephone-S | Liver Transplant | Vimal Crowe MD | | | 2019 | cheduled | | [address] | | | | | | [facility] [place]lee [place], | | | | | | [place] [address] | | | | | | [phone] | | | | | | | [...] Rd | | | | | | [place], [place] | | | | | | [address] | | | | | | [phone] | | | | | | | | +--------+ + + + + documented as of this encounter Visit Diagnoses Not on filedocumented in this encounter"
--- OUTSIDE RECORDS SUMMARY | ~2020-07-29 | XMS | Encounter Summary ---
Demographics + + + | Address | [address] | | | [place] [address] | + + + | Home Phone [...] [place] | | | | | [address] | | + + + + + Care Team Providers + +------+ + | Care Marketing Liaison Name | Role | Phone | + +------+ + | Sharon David MD | PCP | | + +------+ + Encounter Details +--------+ + + + + | Date | Type | Department | Care Team | Description | +--------+ + + + + | 10/23/ | Pharmacy | Outpatient Retail | | | | 2019 | Visit | Clinic Pharmacy | | | | | | [address] | | | | | | [place], [place] | | | | | | [address] | | | | | | [phone] | | | +--------+ + + + [...] Rd | | | | | | [place], [place] | | | | | | [address] | | | | | | [phone] | | | | | | | | +--------+ + + + + | 09/27/ | Telephone-S | Liver Transplant | Vimal Crowe MD | | | 2019 | cheduled | | [address] | | | | | | [facility] [place], | | | | | | [place] [address] | | | | | | [phone] | | | | | | | [...] Rd | | | | | | [place], [place] | | | | | | [address] | | | | | | [phone] | | | | | | | | +--------+ + + + + documented as of this encounter Visit Diagnoses Not on filedocumented in this encounter"
--- OUTSIDE RECORDS SUMMARY | ~2020-07-29 | XMS | Encounter Summary ---
Demographics + + + | Address | [address] | | | [place] [address] | + + + | Home Phone [...] [place] | | | | | [address] | | + + + + + Care Team Providers + +------+ + | Care Heavy Duty Diesel Mechanic Name | Role | Phone | + +------+ + | Sharon David MD | PCP | | + +------+ + Encounter Details +--------+------+ + + + | Date | Type | Department | Care Team | Description | +--------+------+ + + + | 09/14/ | Lab | [facility] at [facility] | | Liver transplant | | 2019 | | [address] | | status (HCC); Liver | | | | Loop Physician's | | replaced by | | | | [place], 3rd floor | | transplant (HCC) | | | | [place], [place] | | | | | | [address] | | | | | | [phone] | | | +--------+------+ + + + [...] | 2019 | [place] | | [address] [facility] | | | | | | [address] | | | | | | [place], [place] | | | | | | [address] | | | | | | [phone] | | | | | | | | +--------+ + + + + | 09/27/ | Telephone-S | Liver Transplant | Vimal Crowe MD | | | 2019 | [place] | | [address] | | | | | | [address], | | | | | | [place] [address] | | | | | | [phone] | | | | | | | [...] Rd | | | | | | [place], [place] | | | | | | [address] | | | | | | [phone] | | | | | | | | +--------+ + + + + documented as of this encounter Procedures + +--------+ + + + | Procedure Name | Priori | Date/Time | Associated Diagnosis | Comments | | | ty | | | | + +--------+ + + + | HCV/HIV/HBV, DUARTE - | Routin | 09/14/2019 | Liver replaced by | Results for this | | TRANSPLANT ONLY | e | 8:15 AM | transplant (HCC) | procedure are in the | | | | PST | | results section. | + +--------+ + + + | PHOSPHATIDYLETHANOL | Routin | 09/14/2019 | Liver replaced by | Results for this | | (PETH) | e | 8:15 AM | transplant (HCC) | procedure are in the | | | | PST | | results section. | + +--------+ + + + | HEPATITIS B SURFACE | Routin | 09/14/2019 | Liver replaced by | Results for this | | AG W/REFLEX IF | e | 8:15 AM | transplant (HCC) | procedure are in the | | INDICATED | | PST | | results section. | + +--------+ + + + | ETHYL GLUCURONIDE | Routin | 09/14/2019 | Liver replaced by | Results for this | | QUANT, URINE | e | 8:15 AM | transplant (HCC) | procedure are in the | | | | PST | | results section. | + +--------+ + + + | CBC AND AUTO DIFF | Routin | 09/14/2019 | Liver transplant | Results for this | | | e | 8:15 AM | status (HCC) | procedure are in the | | | | PST | | results section. | + +--------+ + + + | CBC, WITH | Routin | 09/14/2019 | Liver transplant | Results for this | | DIFFERENTIAL | e | 8:15 AM | status (HCC) | procedure are in the | | | | PST | | results section. | + +--------+ + + + | COMPLETE METABOLIC | Routin | 09/14/2019 | Liver transplant | Results for this | | SET | e | 8:15 AM | status (HCC) | procedure are in the | | (NA,K,CL,CO2,BUN,CRE | | PST | | results section. | | AT,GLUC,CA,AST,ALT,B | | | | | | KEV TOTAL,ALK | | | | | | PHOS,ALB,PROT TOTAL) | | | | | + +--------+ + + + | TACROLIMUS, WHOLE | Routin | 09/14/2019 | Liver transplant | Results for this | | BLOOD | e | 8:15 AM | status (HCC) | procedure are in the | | | | PST | | results section. | + +--------+ + + + | PHOSPHORUS, PLASMA | Routin | 09/14/2019 | Liver transplant | Results for this | | | e | 8:15 AM | status (HCC) | procedure are in the | | | | PST | | results section. | + +--------+ + + + | BILIRUBIN DIRECT | Routin | 09/14/2019 | Liver transplant | Results for this | | | e | 8:15 AM | status (HCC) | procedure are in the | | | | PST | | results section. | + +--------+ + + + | URIC ACID, PLASMA | Routin | 09/14/2019 | Liver transplant | Results for this | | | e | 8:15 AM | status (HCC) | procedure are in the | | | | PST | | results section. | + +--------+ + + + | MAGNESIUM, PLASMA | Routin | 09/14/2019 | Liver transplant | Results for this | | | e | 8:15 AM | status (HCC) | procedure are in the | | | | PST | | results section. | + +--------+ + + + documented in this encounter Results CBC AND AUTO DIFF (09/14/2019 8:15 AM PST) + + + + + + | Component | Value | Ref Range | Performed | Pathologist | | | | | At | Signature | + + + + + + | WHITE CELL | 3.69 | 3.50 - 10.80 | [facility] | | | COUNT | | K/cu mm | LABORATORY | | | | | | SERVICES, | | | | | | CORE | | + + + + + + | RED CELL | 2.74 (L) | 4.50 - 6.00 | [facility] [...] + + + + | MCHC | 30.8 (L) | 32.0 - 36.0 | [facility] [...] + + + + | NEUTROPHIL | 68.5 | 50.0 - 70.0 % | [facility] [...] + + + | BASO % | 0.8 | 0.0 - 2.0 % | [facility] [...] + + + + | NEUTROPHIL | 2.53 | 1.80 - 7.70 | [facility] | [...] + + + | MONOCYTE # | 0.25 | 0.10 - 0.90 | [facility] | [...] [facility] | [address] | [place] [address] | | | SERVICES, CORE | MOISES [...] | + + + + + | [facility] | [address] | [place] [address] | | | SERVICES, CORE | MOISES [...] | Testing | [facility] | | performed by:[email or web address] [email or web address] [place] [address] [place], | REFERENCE LAB | | [place] [address] | | |RAVINDRA Linares [address] | | + + + + + + + + | Performing | Address | City/State/Zipcode | Phone Number | | Organization | | | | + + + + + | [facility] | | | | + + + + + | [facility] | see below | | [...] | | | | | determined by [facility] | | | | | | Laboratories. See | | | | | | Compliance Statement B: | | | | | | [employer]/CSPerformed | | | | | | by [facility],[address] | | | | | | [address] [facility] [place] | | | | | | [address] | | | | | | [phone].[employer]. | | | | | | comHarley [...] [facility] | [address] | [place], [place] | | | UNIV PTH - INTFC | | [address] | | + + + + + [...] REG UNIV | | | (PETH) | 16:0/18:1.7-[id number] | | PTH - INTFC | | | | weloeq-yf-[id number]-phos | | | | | | phoethanol.Analysis [...] | | | | | d by [employer]. It has not | | | | | | been cleared or | | | | | | approvedby the Food and | | | | | | Drug | | | | | | Administration.Performed | | | | | | at: [facility] [address] | | | | | | [facility] [address] | | | | | | [place] [address] | | | | + + + + + + + + | Specimen | + + | Blood - Blood | | (substance) | + + + + + + + | Performing | Address | City/State/Mem[facility] Medical Centercode | Phone Number | | Organization | | | | + + + + + | [facility] | [address] | [place], [place] | | | UNIV PTH - INTFC | | [address] | | + + + + + URIC ACID, PLASMA (09/14/2019 8:15 AM PST) + +-------+ + + + | Component | Value | Ref Range | Performed | Pathologist | | | | | At | Signature | + +-------+ + + + | URIC ACID, | 7.9 | 3.7 - 8.0 mg/dL | [facility] [...] [facility] | [address] | [place] [address] | | | SERVICES, CORE | MOISES [...] | Test performed by immunoassay using [employer] Maker i2000. . | [facility] | | [...] | + + + + + | [facility] | [address] | [place] [address] | | | SERVICES, SPECIAL | PARK [...] [facility] | [address] | [place] [id number] | | | SERVICES, CORE | MOISES [...] [facility] | [address] | [place] [address] | | | SERVICES, CORE | PARK [...] | + + + + + | [facility] | [address] | [place] [address] | | | ARTIS TAYLOR | MOISES [...] | | | LABORATORY | | | [place] | | | SERVICES, | | | [...] MDRD equation recommended by the National | [facility] | | Kidney Disease Education Program. Estimated GFR Interpretive | LABORATORY | | Information: <60 mL/min/1.73 sq m Chronic Kidney | SERVICES, [facility] | | Disease <15 mL/min/1.73 sq m [...] | + + + + + | [facility] | [address] | [place] [address] | | | CLAUDIA, ARTIS | [address] | | | + + + + + documented in this encounter Visit Diagnoses + + | Diagnosis | + + | Liver transplant status (HCC) | + + | Liver replaced by transplant (HCC) Liver replaced by transplant | + + documented in this encounter
--- OUTSIDE RECORDS SUMMARY | ~2020-07-29 | XMS | Encounter Summary ---
Demographics + + + | Address | [address] | | | [place] [address] | + + + | Home Phone [...] [place] | | | | | [address] | | + + + + + Care Team Providers + +------+ + | Care Laborer [place] Name | Role | Phone | + +------+ + | Sharon David MD | PCP | | + +------+ + Encounter Details +--------+ + + + + | Date | Type | Department | Care Team | Description | +--------+ + + + + | 11/19/ | Procedure | Diagnostic Imaging | | | | 2019 | Pass | Services at [facility] | | | | | | [address] | | | | | | [place] | | | | | | [facility] | | | | | | [place], [place] | | | | | | [address] | | | | | | [phone] | | | +--------+ + + + [...] Rd | | | | | | [place], [place] | | | | | | [address] | | | | | | [phone] | | | | | | | | +--------+ + + + + | 09/27/ | Telephone-S | Liver Transplant | Vimal Crowe MD | | | 2019 | [place] | | [address] | | | | | | [address], | | | | | | [place] [address] | | | | | | [phone] | | | | | | | | +--------+ + + + + | 10/03/ | Appointment | Cardiology | | | | 2019 | | | | | +--------+ + + + + | 10/03/ | Office | Cardiology | yCril Samuel | | | 2020 | Visit | | MD Patricia [address] | | | | | | [address] | | | | | | [place], [place] | | | | | | [address] | | | | | | [phone] | | | | | | | | +--------+ + + + + documented as of this encounter Visit Diagnoses Not on filedocumented in this encounter"
--- OUTSIDE RECORDS SUMMARY | ~2020-07-29 | XMS | Encounter Summary ---
Demographics + + + | Address | [address] | | | [place] [address] | + + + | Home Phone [...] [place] | | | | | [address] | | + + + + + Care Team Providers + +------+ + | Care Education Teacher Name | Role | Phone | + +------+ + | Sharon David MD | PCP | | + +------+ + Encounter Details +--------+ + + + + | Date | Type | Department | Care Team | Description | +--------+ + + + + | 03/18/ | Hospital | Cardiology - | [facility] | | | 2019 | Encounter | Non-Invasive Testing | [address] | | | | | [address] | [facility] [place] [facility] [place] [address] | | | | | Mailcode: CH9A | | | | | | [facility] | | | | | | and Healing, | | | | | | [address] | | | | | | [place], [place] | | | | | | [address] | | | | | | [phone] | | | +--------+ + + + [...] | | | | | | [place], [place] | | | | | | [address] | | | | | | [phone] | | | | | | | | +--------+ + + + + | 09/27/ | Telephone-S | Liver Transplant | Vimal Crowe MD | | | 2019 | cheduled | | [address] | | | | | | [place], | | | | | | [place] [address] | | | | | | [phone] | | | | | | | [...] Rd | | | | | | [place] | | | | | | [address] | | | | | | [phone] | | | | | | | | +--------+ + + + + documented as of this encounter Procedures + +--------+ + + + | Procedure Name | Priori | Date/Time | Associated Diagnosis | Comments | | | ty | | | | + +--------+ + + + | 12 LEAD ECG | Routin | 03/18/2019 | Pulmonary | Results for this | | | e | 10:28 AM | hypertension (HCC) | procedure are in the | | | | PDT | Pre-operative | results section. | | | | | cardiovascular | | | | | | examination | | + +--------+ + + + documented in this encounter Results 12 LEAD ECG (03/18/2019 10:28 AM PDT) + + + + + + | Component | Value | Ref Range | Performed | Pathologist | | | | | At | Signature | + + + + + + | VENTRICULAR | 83 | bpm | [facility] | | | RATE | | | OF | | | | | | CARDIOLOGY | | + + + + + + | ATRIAL RATE | 83 | ms | [facility] | | | | | | OF | | | | | | CARDIOLOGY | | + + + + + + | P-R | 173 | ms | [facility] | | | INTERVAL | | | OF | | | | | | CARDIOLOGY | | + + + + + + | P AXIS | 43 | deg | [facility] | | | | | | OF | | | | | | CARDIOLOGY | | + + + + + + | QRS | 110 | ms | [facility] | | | DURATION | | | OF | | | | | | CARDIOLOGY | | + + + + + + | QT | 397 | ms | [facility] | | | | | | OF | | | | | | CARDIOLOGY | | + + + + + + | QTC-BELLA | 465 | ms | [facility] | | | | | | OF | | | | | | CARDIOLOGY | | + + + + + + | R AXIS | 7 | deg | [facility] | | | | | | OF | | | | | | CARDIOLOGY | | + + + + + + | T AXIS | 35 | deg | [facility] | | | | | | OF | | | | | | CARDIOLOGY | | + + + + + + | ECG | Sinus rhythm- NORMAL ECG | | [facility] | | | IMPRESSION | - | | OF | | | | | | CARDIOLOGY | | + + + + + + | ECG | Electronically signed | | [facility] | | | IMPRESSION | by: BEATRICE SAWYER | | OF | | | | 03-18-2019 12:26:44 | | CARDIOLOGY | | + + [...] + + | [facility] | [address] | [place], [place] | | | CARDIOLOGY | [address] | [address] | | + + + + + documented in this encounter Visit Diagnoses Not on filedocumented in this encounter"
--- OUTSIDE RECORDS SUMMARY | ~2020-07-29 | XMS | Encounter Summary ---
Demographics + + + | Address | [address] | | | [place] [address] | + + + | Home Phone [...] [place] | | | | | [address] | | + + + + + Care Team Providers + +------+ + | Care Intelligence Support Officer Name | Role | Phone | + +------+ + | Sahron David MD | PCP | | + +------+ + Encounter Details +--------+ + + + + | Date | Type | Department | Care Team | Description | +--------+ + + + + | 05/25/ | Pharmacy | [facility] | | | | 2020 | Visit | [address] | | | | | | [address] | | | | | | [place] [address] | | | | | | [phone] | | | +--------+ + + + [...] Rd | | | | | | [place], [place] | | | | | | [address] | | | | | | [phone] | | | | | | | | +--------+ + + + + | 09/27/ | Telephone-S | Liver Transplant | Vimal Crowe MD | | | 2019 | cheduled | | [address] | | | | | | [address], | | | | | | [place] [address] | | | | | | [phone] | | | | | | | [...] Rd | | | | | | [place] | | | | | | [address] | | | | | | [phone] | | | | | | | | +--------+ + + + + documented as of this encounter Visit Diagnoses Not on filedocumented in this encounter"
--- OUTSIDE RECORDS SUMMARY | ~2020-07-29 | XMS | Encounter Summary ---
Demographics + + + | Address | [address] | | | [place] [address] | + + + | Home Phone [...] [place] | | | | | [address] | | + + + + + Care Team Providers + +------+ + | Care Recording Studio Intern Name | Role | Phone | + +------+ + | Sharon David MD | PCP | | + +------+ + Encounter Details +--------+ + + + + | Date | Type | Department | Care Team | Description | +--------+ + + + + | 01/17/ | Pharmacy | [facility] | | | | 2020 | Visit | [address] | | | | | | [address] | | | | | | [place] [address] | | | | | | [phone] | | | +--------+ + + + [...] [address] | | | | | | [place], [place] | | | | | | [address] | | | | | | [phone] | | | | | | | | +--------+ + + + + | 09/27/ | Telephone-S | Liver Transplant | Vimal Corwe MD | | | 2019 | cheduled | | [address] | | | | | | [address], | | | | | | [place] [address] | | | | | | [phone] | | | | | | | [...] | | | | | | [place] | | | | | | [address] | | | | | | [phone] | | | | | | | | +--------+ + + + + documented as of this encounter Visit Diagnoses Not on filedocumented in this encounter"
--- OUTSIDE RECORDS SUMMARY | ~2020-07-29 | XMS | Encounter Summary ---
Demographics + + + | Address | [address] | | | [place] [address] | + + + | Home Phone [...] [place] | | | | | [address] | | + + + + + Care Team Providers + +------+ + | Care Maintenance Painter Apprentice Name | Role | Phone | + +------+ + | Sharon David MD | PCP | | + +------+ + Encounter Details +--------+ + + + + | Date | Type | Department | Care Team | Description | +--------+ + + + + | 10/26/ | Pharmacy | Outpatient Retail | | | | 2019 | Visit | Clinic Pharmacy | | | | | | [address] | | | | | | [address] [place], [place] | | | | | | [address] | | | | | | [phone] | | | +--------+ + + + [...] Rd | | | | | | [place], [place] | | | | | | [address] | | | | | | [phone] | | | | | | | | +--------+ + + + + | 09/27/ | Telephone-S | Liver Transplant | Vimal Crowe MD | | | 2019 | cheduled | | [address] | | | | | | [facility] [place], | | | | | | [place] [address] | | | | | | [phone] | | | | | | | [...] Rd | | | | | | [place], [place] | | | | | | [address] | | | | | | [phone] | | | | | | | | +--------+ + + + + documented as of this encounter Visit Diagnoses Not on filedocumented in this encounter"
--- OUTSIDE RECORDS SUMMARY | ~2020-07-29 | XMS | Encounter Summary ---
Demographics + + + | Address | [address] | | | [place] [address] | + + + | Home Phone [...] [place] | | | | | [address] | | + + + + + Care Team Providers + +------+ + | Care Nitric Acid Plant Operator Name | Role | Phone | + +------+ + | Sharon David MD | PCP | | + +------+ + Encounter Details +--------+ + + + + | Date | Type | Department | Care Team | Description | +--------+ + + + + | 10/22/ | Documentati | [facility] | Cecille Yoder DPT | | | 2020 | on | Therapy Services at | [address] | | | | | [facility] | [place], [place] | | | | | [address] | [address] | | | | | [facility] | [phone] | | | | | and Healing, | | | | | | Building 1, | | | | | | Floor [place], [place] | | | | | | [address] | | | | | | [phone] | | | +--------+ + + + [...] encounter Miscellaneous Notes Telephone Encounter - Cecille Yoder DPT - 10/22/2019 11:26 AM PST10/22/2019 Patient hospitalized currently, unable to make outpatient PT appointment Cecille Yoder PT Cecille Yoder PT [facility] [address] Mailcode: [place] [address] documented in this encoun ter Plan of [...] Rd | | | | | | [place], [place] | | | | | | [address] | | | | | | [phone] | | | | | | | | +--------+ + + + + | 09/27/ | Telephone-S | Liver Transplant | Vimal Crowe MD | | | 2019 | cheduled | | [address] | | | | | | [address], | | | | | | [place] [address] | | | | | | [phone] | | | | | | | | +--------+ + + + + | 10/03/ | Appointment | Cardiology | | | | 2019 | | | | | +--------+ + + + + | 10/03/ | Office | Cardiology | Cyril Samuel | | | 2020 | Visit | | MD Patricia [address] [facility] | | | | | | [address] | | | | | | [place] | | | | | | [address] | | | | | | [phone] | | | | | | | | +--------+ + + + + documented as of this encounter Visit Diagnoses Not on filedocumented in this encounter"
--- OUTSIDE RECORDS SUMMARY | ~2020-07-29 | XMS | Encounter Summary ---
Demographics + + + | Address | [address] | | | [place] [address] | + + + | Home Phone [...] [place] | | | | | [address] | | + + + + + Care Team Providers + +------+ + | Care Svp Group Director Name | Role | Phone | + +------+ + | Sharon David MD | PCP | | + +------+ + Reason for Visit + +--------+ + | Reason | Onset | Comments | | | Date | | + +--------+ + | Telephone follow-up | 05/19/ | | | | 2019 | | + +--------+ + Encounter Details +--------+ + + + + | Date | Type | Department | Care Team | Description | +--------+ + + + + | 05/19/ | Telephone | [facility] | Tyson Bellamy, | Telephone follow-up | | 2019 | | Clinics at S | MD [address] | | | | | [address] [place], | | | | | [address] | [place] [address] | | | | | Health and Healing, | [phone] | | | | | [facility] | | | | | | [place], [place] | | | | | | [address] | | | | | | [phone] | | | +--------+ + + + [...] Notes Telephone Encounter - Claudia Cotter - 05/20/2019 12:08 PM PDTTeam Coordinator Docum entation: Spoke to Joanne (patient's sister), was notified that the labs are to be faxed to [facility] in [place], [place] P: F:[phone]. Lab orders faxed. Patient to be seen by Dr. Rodriguez ([facility] Hem/Onc) after starting Deferiprone 20 00mg TID. -->Note to RNC: FYI. Estrada. elephone Encounter - Katarzyna Graff - 05/20/2019 11:44 AM Pam said she just missed a call back. Richelle will be Expecting a Call back. Routing- TC elephone Encoun ter - Claudia Cotter - 05/20/2019 11:29 AM PDTTeam Coordinator Documentation: Per [facility]/Onc patient cancelled appt on 04/30 due to patient moving. LVM for patient, requesting a call back. -->Note to RNC: BEKA. elephone Encounter - Claudia Cotter - 05/20/2019 9:46 AM PDTTeam Coordinator Documentation: Lab orders faxed to the [facility] F:[phone]. elephone Encounter - Anshul Taylor RN - 05/19/2019 12:48 PM PDTFormatting of this note might be different fr om the original. --> Spoke with Dr. Bellamy: Working to arrange iron chelation. Script placed through [facility] p harmacy: Order Transmittal Info Date and Time Department Ordering/Authorizing 05/18/2019 5:04 PM Hematology/Medical Oncology at [facility] Tyson dickens MD Outpatient Medication Detail Disp Refills deferiprone 500 mg oral tablet 360 tablet 3 Sig: Take 4 tablets (2,000mg) by mouth three times daily. Sent to pharmacy as: deferiprone 500 mg tablet Class: eRx Notes to Pharmacy: Please mail to patient. Thank you. Pharmacy [facility] --> Requesting assistance with: PLAN: -Deferiprone 2000mg TID -Local lab checks Q3-4 weeks (CBC, Zinc, Ferritin, LFTs) -Arrange commanagment with local pneumatic deicer inspector -F/U with me in 6mo. --> PER REVIEW OF EPIC: Referral to Dr. Rodriguez ([facility]) placed on 05/04/19. --> RN action: Standing lab orders placed. --> RED HOT TOP LINER HELPER: Please contact patient to schedule 6 month follow up office visit with Elizabeth Bellamy (circa end of Oct 2019). --> RED TC: Please: 1) FAX lab orders to [facility] lab. 2) Contact [facility]ematology and On[facility] ([place], [place]) to ensure they reach out t o patient to contact patient to schedule. --> RX RED: Routing as an update. Please advise if [facility] --> Dr. Bellamy: FYI only. documented in this enc ounter Plan of [...] Rd | | | | | | [place], [place] | | | | | | [address] | | | | | | [phone] | | | | | | | | +--------+ + + + + | 09/27/ | Telephone-S | Liver Transplant | Vimal Crowe MD | | | 2019 | [place] | | [address] | | | | | | [address], | | | | | | [place] [address] | | | | | | [phone] | | | | | | | [...] Rd | | | | | | [place], [place] | | | | | | [address] | | | | | | [phone] | | | | | | | | +--------+ + + + + documented as of this encounter Visit Diagnoses + + | Diagnosis | + + | Iron overload - Primary Other disorders of iron metabolism | + + documented in this encounter"
--- OUTSIDE RECORDS SUMMARY | ~2020-07-29 | XMS | Encounter Summary ---
Demographics + + + | Address | [address] | | | [place] [address] | + + + | Home Phone [...] [place] | | | | | [address] | | + + + + + Care Team Providers + +------+ + | Care Supervisor Advertising Dispatch Clerks Name | Role | Phone | + [...] [address] | | | | | ([facility]) | [address] | Center for | | | | | Procedures | [place], [place] | Health and | | | | | TRANSTHORACI | [address] | Healing, | | | | | C | Phone: | Building 1 | | | | | ECHOCARDIOGR | [phone] | [facility] [place] | | | | | AM, ADULT | Fax: | [address] | | | | | | [phone] | Phone: | | | | | | | [phone] | +--------+--------+ + + + + Encounter Details +--------+ + + + + | Date | Type | Department | Care Team | Description | +--------+ + + + + | 03/09/ | MyChart | Cardiology General | Chasidy Osullivan | RE: Doug Lawson | | 2019 | Encounter | at [facility] [address] | ALEX Quintanilla [address] | | | | | [facility] for | [address] [place], | | | | | Health and Healing, | [place] [address] | | | | | Building 1, [address]th | [phone] | | | | | Floor [facility] [place] | | | | | | [address] | | | | | | [phone] | | | +--------+ + + + [...] this encounter Miscellaneous Notes Telephone Encounter - Hope Tim MA - 03/10/2019 1:17 PM PDTOrder is in, and anaya ed. documented in this encounter Plan of Treatment +--------+ + + + + | Date | Type | Specialty | Care Team | Description | +--------+ + + + + | 08/08/ | Telephone-S | Nephrology | Angélica Chao, | | | 2019 | [place] | | [address] | | | | | | [address] | | | | | | [place], [place] | | | | | | [address] | | | | | | [phone] | | | | | | | | +--------+ + + + + | 09/27/ | Telephone-S | Liver Transplant | Vimal Crowe MD | | | 2019 | [place] | | [address] | | | | | | [address], | | | | | | [place] [address] | | | | | | [phone] | | | | | | | [...] | | | | | | [place], [place] | | | | | | [address] | | | | | | [phone] | | | | | | | [...] Performed At | + + + | [facility] | [facility] | | [facility] Adult Echocardiography Laboratory [address] | CARDIOLOGY | | [place], [place] [address] Ph: | | | Pt Name: DOUG LAWSON | | | Study Date/Time 03/19/2019 / 9:03:07 AMMRN: [id number] | | | Most recent prior: -Acc #: [id number] | | | No. previous echos: 0DOB: 1965 54 years Heart | | | Rate: 85 bpmHeight: 70.0 in Blood | | | Pressure: 118/69 mm/HgWeight: 184.0 lb | | | Gender: MBSA: 2.01 m | | | Order ID: [id number] Study | | | Location: OPSonographer: Dipesh Severino MA, [facility], [facility] | | | Provider: Chasidy Benitesodalradha Performed: [...] Report | | | electronically signed by: [id number] Guillermo Augustine MD, PhD | | | [...] | | | |Report electronically signed by: [id number] Guillermo Augustine MD, PhD (03/19/2019, | | |1:46:14 PM) | | | | | | | | | | | | Final | | + + + + + | Procedure Note | + + | Interface, Cardiology Results - 03/19/2019 1:46 PM [facility] | | [facility] Echocardiography Laboratory [address] [place] [address] | | [place], [place] [address] Pt Name: DOUG | | CHAN LAWSON Study Date/Time 03/19/2019 / 9:03:07 AMMRN: [id number] | | Most recent prior: -Acc #: [id number] No. previous echos: 0DOB: | | 1965 54 years Heart Rate: 85 bpmHeight: 70.0 in Blood | | Pressure: 118/69 mm/HgWeight: 184.0 lb Gender: MBSA: | | 2.01 m | | Order ID: [id number] Study Location: OPSonographer: Dipesh Chang | | Maycol MOYER, [facility], [facility] Provider: Chasidy Benitesodalradha Performed: 2D, | | [...] and indexed values Report electronically signed by: [id number] Guillermo | | Davide RUDD, PhD (03/19/2019, [...] | | | |Report electronically signed by: [id number] Guillermo Augustine MD, PhD (03/19/2019, | |1:46:14 PM) | | | | | | | | Final | + + + + + + + | Performing | Address | City/State/Zipcode | Phone Number | | Organization | | | | + + + + + | [facility] | [address] | [place], [place] | | | CARDIOLOGY | [address] | [address] | | + + + + + documented in this encounter Visit Diagnoses + + | Diagnosis | + + | Pulmonary hyperinflation - Primary Other symptoms involving respiratory system and | | chest | + + | Pulmonary hypertension (HCC) Other chronic pulmonary heart diseases | + + documented in this encounter
--- OUTSIDE RECORDS SUMMARY | ~2020-07-29 | XMS | Encounter Summary ---
Demographics + + + | Address | [address] | | | [place] [address] | + + + | Home Phone [...] [place] | | | | | [address] | | + + + + + Care Team Providers + +------+ + | Care Golf Cart Maker Name | Role | Phone | + +------+ + | Sharon David MD | PCP | | + +------+ + Encounter Details +--------+ + + + + | Date | Type | Department | Care Team | Description | +--------+ + + + + | 06/25/ | Telephone | [facility] | Tyson Bellamy, | | | 2019 | | Clinics at S | MD [address] | | | | | [address] | [address] [place], | | | | | [address] [facility] | [place] [address] | | | | | Health and Healing, | [phone] | | | | | Building 2 | | | | | | [place], [place] | | | | | | [address] | | | | | | [phone] | | | +--------+ + + + [...] encounter Miscellaneous Notes Telephone Encounter - Madhuri Buckner RN - 07/02/2019 3:08 PM PDTReceived notification [facility] that prior auth for 1000 mg tablets has been approved. Called pharmacy and spoke with Carmelina. She states [employer] has already picked up today but will contact family to arrange delivery. elephone Tyson Palmer MD - 06/25/2019 4:05 PM PDT Hematology Phone Note. I called Mr Duran's sister and discussed the overall care plan. We [place] [facility] [place] defer[place]. He has not yet meet with a local hematology group in [facility] e our referral. I have asked Nadiya to place another referral for hematology at [facility] at their request. All questions answered She was appreciative of the call. I let her know o ur team would get back in touch once the drug is approved. Tyson Bellamy MD [employer] insurance agent Hematology-Medical Oncology [facility] [address] documented in this encounter Plan of Treatment +--------+ + + + + | Date | Type | Specialty | Care Team | Description | +--------+ + + + + | 08/08/ | Telephone-S | Nephrology | Angélica Chao, | | | 2019 | [place] | | [address] | | | | | | [address] | | | | | | [place], [place] | | | | | | [address] | | | | | | [phone] | | | | | | | | +--------+ + + + + | 09/27/ | Telephone-S | Liver Transplant | Vimal Crowe MD | | | 2019 | cheduled | | [address] | | | | | | [facility] [place], | | | | | | [place] [address] | | | | | | [phone] | | | | | | | | +--------+ + + + + | 10/03/ | Appointment | Cardiology | | | | 2019 | | | | | +--------+ + + + + | 10/03/ | Office | Cardiology | Cyril Samuel | | | 2019 | Visit | | MD Patricia [address] [facility] | | | | | | [address] | | | | | | [place] | | | | | | [address] | | | | | | [phone] | | | | | | | | +--------+ + + + + documented as of this encounter Visit Diagnoses Not on filedocumented in this encounter"
--- OUTSIDE RECORDS SUMMARY | ~2020-07-29 | XMS | Encounter Summary ---
Demographics + + + | Address | [address] | | | [place] [address] | + + + | Home Phone [...] [place] | | | | | [address] | | + + + + + Care Team Providers + +------+ + | Care Forest Officer Name | Role | Phone | + +------+ + | Sharon David MD | PCP | | + +------+ + Encounter Details +--------+ + + + + | Date | Type | Department | Care Team | Description | +--------+ + + + + | 06/25/ | Pharmacy | Outpatient Retail | | | | 2018 | Visit | Clinic Pharmacy | | | | | | [address] | | | | | | [place], [place] | | | | | | [address] | | | | | | [phone] | | | +--------+ + + + [...] Rd | | | | | | [place], [place] | | | | | | [address] | | | | | | [phone] | | | | | | | | +--------+ + + + + | 09/27/ | Telephone-S | Liver Transplant | Vimal Crowe MD | | | 2019 | cheduled | | [address] | | | | | | [place], | | | | | | [place] [address] | | | | | | [phone] | | | | | | | [...] | | | | | | [place], [place] | | | | | | [address] | | | | | | [phone] | | | | | | | | +--------+ + + + + documented as of this encounter Visit Diagnoses Not on filedocumented in this encounter"
--- OUTSIDE RECORDS SUMMARY | ~2020-07-29 | XMS | Encounter Summary ---
Demographics + + + | Address | [address] | | | [place] [address] | + + + | Home Phone [...] [place] | | | | | [address] | | + + + + + Care Team Providers + +------+ + | Care Wood Turning Lathe Operator Name | Role | Phone | [...] + + | 04/21/ | Hospital | Cardiac | | | | 2019 | Encounter | Non-Invasive Testing | | | | | | at [facility] [address] | | | | | | [facility] for | | | | | | Health and Healing, | | | | | | Building [address] | | | | | | [place], [place] | | | | | | [address] | | | | | | [phone] | | | +--------+ + + + [...] + + + | Blood Pressure | - | - | | + + + + + | Pulse | - | - | | + [...] + + + + | Weight | 83.9 kg (185 lb) | 04/21/2019 1:09 PM | | | | | PDT | | + + + + + | Height | 180.3 cm (5' 11") | 04/21/2019 1:09 PM | | | | | PDT | | + + + + + | Body Mass Index | 25.8 | 04/21/2019 1:09 PM | | | | | PDT | | + + + + + documented in this encounter Progress Ignacio Beck - 04/21/2019 2:15 PM PDTStress echocardiogram completed. Final report to follow. ecille Bustos RN - 1:09 PM PDTAt 1309, prior to the beginning of the procedure, the team paused to ve rify the patient s identity, the procedure to be performed (in accordance with the consent ,) and the correct side/site. The patient was positioned appropriately. All relevant images and results were properly labeled and displayed. Any safety precautions were addressed. Pt denied CP or cardiac symptoms with stress. Stress test was about to be stopped, pt turne d onto L side for recovery ultrasound images and pt's HR increased to 180's with SVT. Dr. Jorge L khan to bedside, carotid massage and valsava performed, SVT stopped and returned to sinus rhythm. Sinus Rhythm stayed for approximately 5 minutes and then converted back to SVT in th e 170's with hypotension each time, converted back to sinus rhythm after 5 minutes. Pt hernan ins asymptomatic throughout both episodes and entire stress. Consulted with Dr. Hassan and indicates to transfer to ER. ER contacted and confirmed Doc to doc report done and ER awar e of pt transfer and no further report necessary. Report to paramedics. Dobutamine stress echocardiogram completed, report to follow. IV remains in place for [facility] transport. Patient released from echo lab at 1435. documented in this enco unter Plan of Treatment +--------+ + + + + | Date | Type | Specialty | Care Team | Description | +--------+ + + + + | 08/08/ | Telephone-S | Nephrology | Angélica Chao, | | | 2019 | [place] | | [address] | | | | | | [address] | | | | | | [place], [place] | | | | | | [address] | | | | | | [phone] | | | | | | | | +--------+ + + + + | 09/27/ | Telephone-S | Liver Transplant | Vimal Crowe MD | | | 2019 | cheduled | | [address] | | | | | | [address], | | | | | | [place] [address] | | | | | | [phone] | | | | | | | | +--------+ + + + + | 10/03/ | Appointment | Cardiology | | | | 2019 | | | | | +--------+ + + + + | 10/03/ | Office | Cardiology | Cyril Samuel | | | 2019 | Visit | Darren Gomez MD [address] | | | | | | [address] | | | | | | [place], [place] | | | | | | [address] | | | | | | [phone] | | | | | | | [...] + +--------+ + + + | ECG TRACING FOR | Extrem | 04/21/2019 | Alcoholic | Results for this | | STRESS | e | 1:01 PM | cirrhosis of liver | procedure are in the | | ECHOCARDIOGRAM | Emerge | PDT | with ascites (HCC) | results section. | | | ncy | | Ascites due to | | | | | | alcoholic cirrhosis | | | | | | (HCC) Internal | | | | | | organ deficiencies | | | | | | Preoperative | | | | | | examination | | + +--------+ + + + documented in this encounter Results ECG TRACING FOR STRESS ECHOCARDIOGRAM (04/21/2019 1:01 [...] + | [facility] | [address] | [place], [place] | | | CARDIOLOGY | [address] | [address] | | + + + + + [...] | | | + +--------+ +--------+------+------+ | atropine injection 0.3-0.4 mg | Given | 04/21/20 | 0.3 mg | | | | 0.3-0.4 mg, intravenous, | | 19 1:24 | | | | | INTRAPROCEDURE PRN, Starting Tue | | PM PDT | | | | | 04/21/19 at 1309, Until 04/21/19 | | | | | | | at 1508, per dobutamine stress | | | | | | | echo protocol | | | | | | + +--------+ +--------+------+------+ +---+---+ | | | +---+---+ + + + + +--------+---+ | DOBUTamine (DOBUTREX) 500 | Rate/Dos | 04/21/20 | 30 | 75.51 | | | mg/250 mL (2 mg/mL) IV infusion | e Change | 19 1:25 | mcg/kg/m | mL/hr | | | (RTU) 5-50 mcg/kg/min | | PM PDT | in | | | | 83.9 kg Dosing weight | | | | | | | (12.585-125.85 mL/hr, rounded to | | | | | | | 12.59-125.85 mL/hr), intravenous, | | | | | | | INTRAPROCEDURE CONTINUOUS PRN, | | | | | | | Starting 04/21/19 at 1309, | | | | | | | Until 04/21/19 at 1508, per | | | | | | | DOBUTamine stress echo protocol | | | | | | + + + + +--------+---+ + + + +--------+---+ | Rate/Dose Change | 04/21/20 | 20 | 50.34 | | | | 19 1:22 | mcg/kg/m | mL/hr | | | | PM PDT | in | | | + + + +--------+---+ | Rate/Dose Change | 04/21/20 | 10 | 25.17 | | | | 19 1:19 | mcg/kg/m | mL/hr | | | | PM PDT | in | | | + + + +--------+---+ +---+---+ | | | +---+---+ + +-------+ +-------+---+---+ | esmolol (BREVIBLOC) injection | Given | 04/21/20 | 10 mg | | | | 10-30 mg 10-30 mg, intravenous, | | 19 1:35 | | | | | INTRAPROCEDURE PRN, Starting Tue | | PM PDT | | | | | 04/21/19 at 1309, Until 04/21/19 | | | | | | | at 1508, per dobutamine stress | | | | | | | echo protocol | | | | | | + +-------+ +-------+---+---+ +-------+ +-------+---+---+ | Given | 04/21/20 | 10 mg | | | | | 19 1:32 | | | | | | PM PDT | | | | +-------+ +-------+---+---+ +---+---+ | | | +---+---+ + +---------+ +--------+---+---+ | perflutren lipid microspheres | IV Push | 04/21/20 | 1.5 mL | | | | (DEFINITY) injection | | 19 2:16 | | | | | intravenous, INTRAPROCEDURE PRN, | | PM PDT | | | | | Starting 04/21/19 at 1309, | | | | | | | Until 04/21/19 at 1508, image | | | | | | | acquisition | | | | | | + +---------+ +--------+---+---+ +---+---+ | | | +---+---+ + +---------+ +--------+---+---+ | sodium chloride 0.9 % (NS) IV | New Bag | 04/21/20 | 250 mL | | | | infusion 250 mL, intravenous, | | 19 1:30 | | | | | INTRAPROCEDURE PRN, Starting Tue | | PM PDT | | | | | 04/21/19 at 1309, Until 04/21/19 | | | | | | | at 1508, per dobutamine stress | | | | | | | echo protocol for SBP < 90 | | | | | | + +---------+ +--------+---+---+ +---+---+ | | | +---+---+ documented in this encounter
--- OUTSIDE RECORDS SUMMARY | ~2020-07-29 | XMS | Encounter Summary ---
Demographics + + + | Address | [address] | | | [place] [address] | + + + | Home Phone [...] [place] | | | | | [address] | | + + + + + Care Team Providers + +------+ + | Care Decal Maker Name | Role | Phone | [...] | | cirrhosis of | [address] | [facility] | | | | | liver with | [facility] | for Health | | | | | ascites | Rd | and Healing, | | | | | (HCC) | [place], [place] | Building 1, | | | | | Procedures | [address] | 1st Floor | | | | | PHYSICAL | Phone: | [place], [place] | | | | | THERAPY | [phone] | [address] | | | | | REFERRAL | | Phone: | | | | | | | [phone] | | | | | | | Fax: | | | | | | | [phone] | +--------+--------+ + + + + Encounter Details +--------+---------+ + + + | Date | Type | Department | Care Team | Description | +--------+---------+ + + + | 11/05/ | Office | [facility] Physical | Dennys Hinson, PT | Difficulty walking | | 2020 | Visit | Therapy Services at | [address] | (Primary Dx); Leg | | | | [place] [address] [place], | edema; Status post | | | | [address] | [place] [address] | liver transplant | | | | [place] [facility] | [phone] | (HCC) | | | | and Healing, | | | | | | Building 1, 1st | | | | | | Floor [place], [place] | | | | | | [address] | | | | | | [phone] | | | +--------+---------+ + + + [...] encounter Progress Notes Dennys Hinson, PT - 11/05/2019 3:30 PM PST Insurance: Payor: [facility] MEDICAID / Plan: [facility] [place] / Product Type: Medicaid / Non-Medicare SUBJECTIVE: Doing laundry going up and down stairs 4x felt sore in legs after for a day. Foot swelling is up with cleaning up apartment as he is preparing to return to [place]. Had hospital stay for about 2 weeks [...] months. Walking in home, outdoors-yesterday went to [place] for the day did a little walking. [...] tolerate light resisted exercises with less breaks. Elevated resting BP (145/78) today. FUNCTIONAL GOALS: due in 12 weeks Goal [...] status. DENNYS HINSON, PT [facility] Scheduled Appointment time: 1045 (seen earlier 1005) The patient was seen for a total of 45 minutes of treatment time. 45 minutes was in direct contact care as described above and on completed flow sheets. Treatment Interventions duration in minutes: Procedure: Therapeutic Exercise 45 min Authorization information for first visit and progress reports Procedure Codes: Therapeutic Exercise 46479 and Gait Training 79791 Minutes per session: 45 Total number of [...] walking Next progress report 11/02/2019 Insurance: Payor: [employer] MEDICAID / Plan: [facility] [place] / Product Type: Medicaid / [...] | | 2019 | cheduled | | [address] | | | | | | [address] | | | | | | [place], [place] | | | | | | [address] | | | | | | [phone] | | | | | | | | +--------+ + + + + | 09/27/ | Telephone-S | Liver Transplant | Vimal Crowe MD | | | 2019 | cheduled | | [address] | | | | | | [address], | | | | | | [place] [address] | | | | | | [phone] | | | | | | | | +--------+ + + + + | 10/03/ | Appointment | Cardiology | | | | 2019 | | | | | +--------+ + + + + | 10/03/ | Office | Cardiology | Cyril Samuel | | | 2019 | Visit | | MD Patricia [address] | | | | | | [address] | | | | | | [place], [place] | | | | | | [address] | | | | | | [phone] | | | | | | | | +--------+ + + + + documented as of this encounter Procedures + +--------+ + + + | Procedure Name | Priori | Date/Time | Associated Diagnosis | Comments | | | ty | | | | + +--------+ + + + | [place] THERAPEUTIC | Routin | 11/05/2019 | Difficulty walking | | | EXERCISES | e | 4:24 PM | Leg edema Status | | [...]
--- OUTSIDE RECORDS SUMMARY | ~2020-07-29 | XMS | Encounter Summary ---
Demographics + + + | Address | [address] | | | [place] [address] | + + + | Home Phone [...] [place] | | | | | [address] | | + + + + + Care Team Providers + +------+ + | Care Material Damage Appraiser Name | Role | Phone | + +------+ + | Sharon David MD | PCP | | + +------+ + Reason for Visit + +--------+ + | Reason | Onset | Comments | | | Date | | + +--------+ + | Lab Results | 03/19/ | | | | 2019 | | + +--------+ + Encounter Details +--------+ + + + + | Date | Type | Department | Care Team | Description | +--------+ + + + + | 03/19/ | Telephone | Cardiology General | Chasidy Osullivan | Lab Results | | 2019 | | at [facility] [address] | GUMARO Quintanilla-C [address] | | | | | [facility] | [address] [place], | | | | | Health and Healing, | [place] [address] | | | | | [facility] | [phone] | | | | | Floor [place], [place] | | | | | | [address] | | | | | | [phone] | | | +--------+ + + + [...] this encounter Miscellaneous Notes Telephone Encounter - Chasidy Osullivan PA-C - 03/19/2019 4:03 PM PDTSpoke with Batool and discussed that echo showed normal RV function and normal right sided pressures now, No Need for right heart catheterization, NT pro BNP was mildly elevated. elephone Encounter - Celeste Ganta - 03/19/2019 3:55 PM PDTPatient Returning Call to Provider Person calling: Joanne What is the question: Patient states she/he is returning a call to Chasidy Osullivan. Okay to send MyChart Response:? Please call Joanne at [phone] Follow instructions in encounter from the provider. If there is no encounter from provider, route directly to her/him. elephone Encounter - Chasidy Pascal PA-C - 03/19/2019 3:45 PM PDTLM for Joanne to call me back regarding echo results for Donell. documented in this encounter Plan of Treatment +--------+ + + + + | Date | Type | Specialty | Care Team | Description | +--------+ + + + + | 08/08/ | Telephone-S | Nephrology | Angélica Chao, | | | 2019 | che[place] | | [address] | | | | | | [address] | | | | | | [place], [place] | | | | | | [address] | | | | | | [phone] | | | | | | | | +--------+ + + + + | 09/27/ | Telephone-S | Liver Transplant | Vimal Crowe MD | | 2019 | [place] | | [address] | | | | | | [address], | | | | | | [place] [address] | | | | | | [phone] | | | | | | | [...] Rd | | | | | | [place], [place] | | | | | | [address] | | | | | | [phone] | | | | | | | | +--------+ + + + + documented as of this encounter Visit Diagnoses Not on filedocumented in this encounter"
--- OUTSIDE RECORDS SUMMARY | ~2020-07-29 | XMS | Encounter Summary ---
Demographics + + + | Address | [address] | | | [place] [address] | + + + | Home Phone [...] [place] | | | | | [address] | | + + + + + Care Team Providers + +------+ + | Care Payroll Accounting Specialist Name | Role | Phone | + +------+ + | Sharon David MD | PCP | | + +------+ + Encounter Details +--------+ + + + + | Date | Type | Department | Care Team | Description | +--------+ + + + + | 04/29/ | Pharmacy | [facility] | | | | 2020 | Visit | [address] | | | | | [address] | | | | | | [place] [address] | | | | | | [phone] | | | +--------+ + + + [...] Rd | | | | | | [place], [place] | | | | | | [address] | | | | | | [phone] | | | | | | | | +--------+ + + + + | 09/27/ | Telephone-S | Liver Transplant | Vmial Crowe MD | | | 2019 | cheduled | | [address] | | | | | | [address], | | | | | | [place] [address] | | | | | | [phone] | | | | | | | [...] Rd | | | | | | [place] | | | | | | [address] | | | | | | [phone] | | | | | | | | +--------+ + + + + documented as of this encounter Visit Diagnoses Not on filedocumented in this encounter"
--- OUTSIDE RECORDS SUMMARY | ~2020-07-29 | XMS | Encounter Summary ---
Demographics + + + | Address | [address] | | | [place] [address] | + + + | Home Phone [...] [place] | | | | | [address] | | + + + + + Care Team Providers + +------+ + | Care Case Management Director Name | Role | Phone | + +------+ + | Sharon David MD | PCP | | + +------+ + Encounter Details +--------+--------+ + + + | Date | Type | Department | Care Team | Description | +--------+--------+ + + + | 07/17/ | Intake | Transfer Center | | | | 2019 | | [address] | | | | | | [place], | | | | | | [place] [address] | | | +--------+--------+ + + + [...] documented as of this encounter Miscellaneous Notes Transfer Note - Madeleine Del Toro MD - 07/17/2019 12:05 PM [facility] Referring Yulia Oneil Accepting ([facility] consultants) MATI Sanchez On phone? Yes Reason for transfer Decompensated cirrhosis History 54 yo man with hx of alcoholic cirrhosis c/b ascites, yesterday listed for liver tr ansplant. Complex course recently (iron overload, cardiac concerns - all Presented to Yulia for confusion, hyperglycemia. In the ED UA neg CXR neg B cx pending CT head not yet done Awaiting diagnostic para In the ED he is slow, CBGs 480, most recent 420 AG is 14, bicarb 29 Na 131 WBC 7.1 Hct 10/28 Plts 42K INR 2.2 UA LE, nit neg, 1-2 WBC K 4.6 Cl 88 BUN 53, 1.85 (was 1.98 yesterday) Ca 10.3 Alb 3.2/Pro 7.2 ALT 45 AST 64? Bili 16.3 Nh3 78 Biggest concern is infection MELD 33 today Vital signs AF, 82, 97%, 102/60 Alert, slow to respond Oriented to place, name, what is going on Known active problems at time of transfer: 1. New diagnosis of hyperglycemia/diabetes 2. ESLD on liver transplant list 3. Encephalopathy, presume hepatic but also at risk for HHNK 4. Decompensated liver disease 5. KAR, possible HRS Discussion and next steps: We are currently quite full. Referring will initiate workup. I r ecommended fluids, checking ketones/serum osm and mgmt of hyperglycemia. Referring will perf orm diagnostic para. Pt also with new KAR that is concerning for HRS. Per Dr. Sanchez recomme nding pt come here for further mgmt, particularly as now on transplant list. Status of transfer request? Accepted This note for care coordination purposes only. I have not seen/examined pt nor have I perfo rmed chart review. Madeleine Del Toro MD [facility] Medicine documented in th is encounter Plan of [...] Rd | | | | | | [place], [place] | | | | | | [address] | | | | | | [phone] | | | | | | | | +--------+ + + + + | 09/27/ | Telephone-S | Liver Transplant | Vimal Crowe MD | | | 2019 | [place] | | [address] | | | | | | [address], | | | | | | [place] [address] | | | | | | [phone] | | | | | | | [...] Rd | | | | | | [place] | | | | | | [address] | | | | | | [phone] | | | | | | | | +--------+ + + + + documented as of this encounter Visit Diagnoses Not on filedocumented in this encounter"
--- OUTSIDE RECORDS SUMMARY | ~2020-07-29 | XMS | Encounter Summary ---
Demographics + + + | Address | [address] | | | [place] [address] | + + + | Home Phone [...] [place] | | | | | [address] | | + + + + + Care Team Providers + +------+ + | Care Vacuum Cleaner Operator Name | Role | Phone | + +------+ + | Sharon David MD | PCP | | + +------+ + Encounter Details +--------+ + + + + | Date | Type | Department | Care Team | Description | +--------+ + + + + | 11/02/ | Feeder Driver | Clinical | Vimal Crowe MD | Liver replaced by | | 2019 | | Transplant Services | [address] | transplant (HCC) | | | | [address] | [address] [place], | (Primary Dx) | | | | [facility], | [place] [address] | | | | | [place] [address] | [phone] | | | | | [phone] | | | +--------+ + + + [...] Rd | | | | | | [place], [place] | | | | | | [address] | | | | | | [phone] | | | | | | | | +--------+ + + + + | 09/27/ | Telephone-S | Liver Transplant | Vimal Crowe MD | | | 2019 | cheduled | | [address] | | | | | | [address], | | | | | | [place] [address] | | | | | | [phone] | | | | | | | [...] Rd | | | | | | [place], [place] | | | | | | [address] | | | | | | [phone] | | | | | | | | +--------+ + + + + documented as of this encounter Results ETHYL GLUCURONIDE QUANT, URINE (11/09/2019 7:53 AM PST) + + + [...] | | | | | determined by [facility] | | | | | | Laboratories. See | | | | | | Compliance Statement B: | | | | | | [place].Graematter/CSPerformed | | | | | | by [facility],[address] | | | | | | [address] [facility] | | | | | | [address] | | | | | | [phone].[facility]. | | | | | | com, [...] [facility] | [address] | [place], [place] | | | [facility] | | [address] | | + + + + + PHOSPHATIDYLETHANOL (PETH) (11/09/2019 7:53 AM PST) + + + + + + | Component | Value | Ref Range | Performed | Pathologist | | | | | At | Signature | + + + + + + | PHOSPHATIDY | NEGATIVEComment: | NEGATIVE ng/mL | [facility] | | | LETHANOL | Analyzed compound: PEth | | [facility] UN[facility] | | | (PETH) | 16:0/18:1.6-gedjpbhti-9- | | PTH - [facility] | | | | uyaxvg-gd-feugbbd-3-phos | | | | | | phoethanol.Analysis [...] | | | | | d by [employer]. It has not | | | | | | been cleared or | | | | | | approvedby the Food and | | | | | | Drug | | | | | | Administration.Performed | | | | | | at: [facility] [address] | | | | | | [facility] [address] | | | | | | [place] [address] | | | | + + + + + + + + | Specimen | + + | Blood - Blood | | (substance) | + + + + + + + | Performing | Address | City/State/Zipcode | Phone Number | | Organization | | | | + + + + + | [facility] | [address] | [place], [place] | | | [facility] | | [address] | | + + + + + documented in this encounter Visit Diagnoses + + | Diagnosis | + + | Liver replaced by transplant (HCC) - Primary Liver replaced by transplant | + + documented in this encounter
--- OUTSIDE RECORDS SUMMARY | ~2020-07-29 | XMS | Encounter Summary ---
Demographics + + + | Address | [address] | | | [place] [address] | + + + | Home Phone [...] [place] | | | | | [address] | | + + + + + Care Team Providers + +------+ + | Care Scale Expert Name | Role | Phone | + +------+ + | Sharon David MD | PCP | | + +------+ + Encounter Details +--------+ + + + + | Date | Type | Department | Care Team | Description | +--------+ + + + + | 10/25/ | Pharmacy | Outpatient Retail | | | | 2019 | Visit | [facility] | | | | | | [address] | | | | | | [address] [place], [place] | | | | | | [address] | | | | | | [phone] | | | +--------+ + + + [...] | | | | | | [place], [place] | | | | | | [address] | | | | | | [phone] | | | | | | | | +--------+ + + + + | 09/27/ | Telephone-S | Liver Transplant | Vimal Crowe MD | | | 2019 | cheduled | | [address] | | | | | | [facility] [place], | | | | | | [place] [address] | | | | | | [phone] | | | | | | | [address] Rd | | | | | | [place], [place] | | | | | | [address] | | | | | | [phone] | | | | | | | | +--------+ + + + + documented as of this encounter Visit Diagnoses Not on filedocumented in this encounter"
--- OUTSIDE RECORDS SUMMARY | ~2020-07-29 | XMS | Encounter Summary ---
Demographics + + + | Address | [address] | | | [place] [address] | + + + | Home Phone [...] [place] | | | | | [address] | | + + + + + Care Team Providers + +------+ + | Care Momd Teacher Name | Role | Phone | [...] Description | +--------+---------+ + + + | 08/15/ | Surgery | 6A Intra Op [id number] | Marsha Garcia, | LIVER TRANSPLANT | | 2019 - | | ROYER Gomez | [address] [facility] | RECIPIENT (IN ROOM | | | | Rd [facility] | [address] | TIME 2330) | | 08/16/ | | Hospital Admitting | [place], [place] | | | 2018 | | Desk Located on the | [address] | | | | | 9th floor | [phone] | | | | | [place], [place] | | | | | | [address] | | | +--------+---------+ + + + [...] + + + | Blood Pressure | 99/61 | 08/15/2019 10:27 PM | | | | | PDT | | + + + + + | Pulse | 58 | 08/15/2019 10:27 PM | | | | | PDT | | + + + + + | Temperature | 36.4 C (97.5 F) | 08/15/2019 10:27 PM | | | | | PDT | | + + + + + | Respiratory Rate | 17 | 08/15/2019 10:27 PM | | | | | PDT | | + + + + + | Oxygen Saturation | 96% | 08/15/2019 10:27 PM | | | | | PDT | | + + + + + | Inhaled Oxygen | - | - | | | Concentration | | | | + + + + + | Weight | 98.2 kg (216 lb 7.9 | 08/15/2019 3:37 PM | | | | oz) | PDT | | + + + + + | Height | 180.3 cm (5' 11") | 07/17/2019 10:43 PM | | | | | PDT [...] documented as of this encounter Discharge Summaries Farzana Eldridge MD,MPH - 08/24/2019 8:01 AM PSTFormatting [...] Hospital Course: [facility] for failure to thrive at [...] day Indications: type 2 diabetes mellitus Insulin Neal (Disposable) 31 gauge x 5/16" Ndle Commonly [...] (or 3 results) - Refreshable Recent Labs 08/27/1955608/28/1953508/29/19600 WBC 4.52 5.11 5.99 HB 7.8* 7.6* [...] - 09/12/19 10 mg 2 09/13/19 - care home dose 5 mg 1 Prophylaxis: Valcyte 450 mg po daily, Fluconazole 400mg every Saturday, MW. Cardiology: continue 81 mg of ASA daily Renal: Biweekly labs Outpatient HD Endocrinology: - Continue NPH 17 units in the AM, and 6 units in PM - Continue Lispro sliding scale four times daily Diet: Regular diet with restrictions as per the transplant golf cart mechanic. Activity: Up and walking as tolerated. 10 [...] 9:40 AM Ltx 3 Liver Transplant at [facility] [phone] Liver and Pa 11/02/2019 4:10 PM Tyson Bellamy Hematology/Medical Oncology at [facility] Arrive at: 10th Floor Hematology/Medical Oncology [phone] HemOn 11/17/2019 11:00 AM Dekey Y Andreewa Liver Transplant at [facility] 2nd Floor [phone] GASTROENT ERO 02/16/2020 11:20 AM Dekey Y Lhewa Liver Transplant at [facility] 2nd Floor [phone] GASTROENT ERO 08/16/2020 11:00 AM Dekey Y Lhewa Liver Transplant at [facility] 2nd Floor [phone] GASTROEN TERO Contact information: For any questions or concerns about Mr. michaud please call his/her transplant nurse coordinat or (Judie Mota or Cecille Brunner) at or ask for the transplant nurse coordina tor automation technologist if after hours. For clinical questions you [...] s note. MARSHA GARCIA MD HEMODIALYSIS [address] [place] [address] documented in this encounter Discharge Instructions Instructions Farzana Eldridge MD,MPH - 08/29/2019 11:17 AM PSTDischarge [...] diet with restrictions as per the transplant golf cart mechanic. Activity: Up and walking as tolerated. 10 [...] [facility] camp us Please call your Liver Band Top Maker for any concerns and/or questions regarding medications, labs, appointments and your post op re covery period. Discharge Nurse: Amy Arreguin RN Date: 08/29/2019 Discharge Time: 10:09 AM AttachmentsThe following attachments cannot be sent through Care Everywhere.Liver Transplan t: Post-op (Singaporean)Post-op Infection (Singaporean)[facility]: Directions for Giving a Single Dose of Insulin (Singaporean)[facility]: Directions for Giving a Mixed Dose of Insulin (Singaporean)[facility]: High Blo od Sugar (Hyperglycemia) (Singaporean)[facility]: Low Blood Sugar (Hypoglycemia) (Singaporean)[facility]: Safe D isposal of Medical Syringes (Singaporean)documented in this encounter Medications at Time of [...] + + +---------+ + + | Insulin Neal | Use as directed for | 150 [...] TMP/SMX) and p ersistent renal insufficiency requiring ANIMAL HERDER. Seems to be showing signs of renal recovery, b ut still needs HD for clearance needs. Dialyzing today and will be discharging afterwards, with plans in place for outpatient HD. ASSESSMENT/PLAN: KAR superimposed on CKD III - access if tunneled dialysis catheter placed 08/26/19 -> HD today -> outpatient HD arranged at [facility] TThSat starting 09/01/19 -> continue forced diuresis [...] below were personal ly reviewed. Recent Labs 08/27/1957 08/28/19 0508/29/19 0601 NA 135* 137 135* K 4.6 4.7 4.9 CL 101 103 103 BICARB 27 27 26 BUN 76* 74* 69* CR 2.40* 2.47* 2.50* AST 14 7 9 ALT 40 33 32 TBILI 1.1 1.1 1.0 AP 47* 41* 46* TP 6.1* 5.8* 6.1* Recent Labs 08/27/1957 08/28/19 0536 08/29/19 0601 CA 8.7 8.7 [...] d any additions or exceptions. Shira Jernigan NephrologySineaFarzana MD,MPH - 08/29/2019 11:27 AM PSTFormatting of [...] . Plan # OLTx OOB, JEANNETTE duenas [id number] Change incision dressing as needed; use binder [...] Sushila Eldridge MD,MPH Abdominal Transplant Surgery Pager: [phone] Associated attestation - Marsha Garcia MD - 08/29/2019 11:40 AM PSTClinically well Good allograft function Improving renal function but dialysis today Home today [facility] dialysis t--sat I have personally managed patient immunosuppression tac/MMF/pred I saw and evaluated the patient. I agree with the findings and the plan of care as dominick machado in the resident s note. MARSHA GARCIA MD HEMODIALYSIS [address] [place] [address] Jory Us RN - 08/29/2019 9:15 AM PSTDaVita note (code 100): Hemodialysis serviece s provided from 6531-5371. Report received from Chacho Toure RN 0900 Safety checklist performed. Timeout (ICEOAT?) performed. Consent [...] fluid removed (mL) 1303 Dialyzer lot #: [id number] Dialyzer exp date: 2022-05-25 Tubing lot #: [id number] Tubing exp date #: 2022-05-20 Acid lot #: [id number] Acid exp date: 2021-06-23 Bicarb lot #: [id number] Bicarb exp date: [id number] signed by Jory Us RN at 08/29/2019 2:08 PM Nancy Givens RN - 08/28/2019 3:11 PM PSTFormatting of this note might be differe nt from the original. Case Management Services Arranged Dialysis New or Return? New Name: [facility] Address: [address], [place], [place] Appointment Date: 09/01/2019 1210pm Return Schedule: Every Saturday, and Saturday, you need to arrive at the facility a t 12:10pm and run starts at 1240pm Comments: Dr. Chao with [facility] will be your communication equipment repairer while on dialysis Amaris Fowler L CSW - 08/28/2019 1:32 PM PSTPost- Transplant Social Work Inpatient Contact- Discharge visit Purpose of Visit: CODE ENFORCEMENT SUPERVISOR met w/pt for transplant social work visit [...] Plan: Pt plans to recover at an [facility] in [place] with the help of his mother and sister. Discharge Plan: No barriers to discharge identified from a psychosocial perspective, in tact recovery suppo rt plan. CM RN & MDT aware. Additional Concerns/Needs: None at this time. Conclusion & Follow-Up Plan: No further psychosocial needs identified at this time. SW will plan to follow up with patidwight nt and family post discharge at clinic appointments and as needed. Amaris Medina LCSW Clinical Transplant Float Electric Frying Pan Repairer Pager: [phone] signed by Amaris Medina LCSW at 08/28/2019 1:33 PM Pramod Weinberg MD - 08/28/2019 9:36 AM PST Nephrology [...] 08/22/19. - Hd chair available on 09/01/19, [facility] - UoP improving and electrolytes stable, favor [...] the assessment and plan. Pramod Black MD [id number] HPI/ REVIEW OF SYSTEMS: Interval Events: - [...] any additions or exceptions. HAKAN ROBERTS MD [facility] [address] [place] [address] Nisreen Chakraborty PA-C - 08/28/2019 9:34 AM [...] 100 % Intake/Output 08/26 701 - 08/27 0708/27 - 08/28 - 08/29 07 [address] [...] Nisreen Chakraborty PA-C Abdominal Organ Transplant Surgery [facility] Amaris Fowler LCSW - 08/27/2019 12:40 PM PSTPost- Transplant Social Work Inpatient Contact- Discharge visi t Purpose of Visit: CODE ENFORCEMENT SUPERVISOR met w/pt for transplant social work visit [...] near where he will be staying in [place]. Pt shared his daughter just landed in [place] from [place] and he is lo oking forward to seeing her. He became tearful when talking and his children. Post-Hospital Support Plan: Pt plans to recover at an AirBnB in [place] with the help of his mother and [...] needed. Amaris Medina LCSW Clinical Transplant Float Electric Frying Pan Repairer Pager: [phone] signed by Amaris Medina LCSW at 08/27/2019 12:49 PM Pramod Weinberg MD - 08/27/2019 9:59 AM PST Nephrology [...] the assessment and plan. Pramod Black MD [id number] HPI/ REVIEW OF SYSTEMS: Interval Events: Left [...] O2 Delivery Device: None (room air) (08/27/19 0800) 24 Hour Vital Min/Max: Systolic (24hrs), [...] 08/27/2019 0800 Gross per 24 hour Intake 2010 ml Output 1050 ml Net 960 ml [...] any additions or exceptions. HAKAN ROBERTS MD [facility] [address] [place] [address] Nisreen Chakraborty PA-C - 08/27/2019 9:23 AM [...] in place Psychiatric: Cooperative. Data Recent Labs 08/25/19 0608/26/1961108/26/19223408/27/1957 08/27/1915 NA 136 -- 136 -- -- 135* [...] in this interval not displayed. Recent Labs 08/25/1932 08/26/1961108/27/19 0557 AST 9 9 14 ALT 40 37 [...] Labs 08/25/19 0115 08/25/19 0632 08/26/19 0612 08/27/19 0557 INRPT 1.41* 1.36* 1.24* 1.19 APTT [...] Nisreen Chakraborty PA-C Abdominal Organ Transplant Surgery [facility] Kris Chavez MD - 08/26/2019 2:34 PM [...] of pa in control. Rich Mena MD Fadia romero, DO - 08/26/2019 8:59 AM PST Nephrology [...] any additions or exceptions. HAKAN ROBERTS MD [facility] [address] [place] [address] Nisreen Chakraborty PA-C - 08/26/2019 8:57 AM [...] 08/24/1955108/25/1963108/26/19611 AMYLASEPLAS 19* 14* 18* Recent Labs 08/24/1955108/24/19 2323 08/25/1963108/26/19611 WBC 4.47 5.54 5.47 4.58 HB 8.8* [...] Nisreen Chakraborty PA-C Abdominal Organ Transplant Surgery [facility] Fadia Morales DO - 1 10/25/2018 1:39 PM PST Nephrology Inpatient Follow-up Note IDENTIFICATION: PATIENT NAME: Doug Lawson : 1965 DATE OF ADMISSION: 07/17/2019 DATE OF SERVICE: 08/25/2019 HOSPITAL DAY: 39 PCP: Sharon David MD REQUESTING PROVIDER: Marsha Garcia MD REASON FOR CONSULTATION: KAR IMPRESSION & [...] Delivery Device: None (room air) (08/25/19 0854) 24 Hour Vital Min/Max: Systolic (24hrs), Av [...] 08/25/2019 Lab Results Component Value Date URINECOLOR Yduy 08/15/2019 URAPPEARANCE Clear 08/15/2019 URINEPROTEIN Negative 05/20/2019 [...] outpt HD unit placement. HAKAN ROBERTS MD [facility] [address] [place] [phone] Vandana Silva RN - 08/25/2019 12:27 PM PSTDaVita note (code 100): Hemodialysis serviec es provided from [id number]. Report received from Anh Smallwood RN 09 Safety checklist performed. Timeout (ICEOAT?) PERFORMED. Consent [...] fluid removed (mL) 1000 Acid lot #: [id number] Acid exp date: 07/20/21 Bicarb lot #: [id number] Bicarb exp date: 01/05/21 Pattie Rhodes PA-C [...] in place Psychiatric: Cooperative. Data Recent Labs 08/23/1936 08/24/19 0552 08/24/19213208/25/19 0632 08/25/19 0737 NA 137 -- 137 -- [...] in this interval not displayed. Recent Labs 08/23/19 0536 08/24/19 0552 08/25/19 0632 AST 11 11 9 ALT [...] Pattie Ignacio PA-C Abdominal Organ Transplant Surgery [facility] Judie Ornelas RN - 08/24/2019 11:16 [...] 100 % Intake/Output 08/22 701 - 08/23 0708/23 - 08/24 0708/24 07 - 08/25 0700 [address] 1760 640 [...] in place Psychiatric: Cooperative. Data Recent Labs 08/22/1953808/23/1953508/24/19 0508/24/19 0718 08/24/19 1001 NA 135* -- 137 [...] Recent Labs 08/24/19551 PREALB 24.5 Recent Labs 08/22/1953808/23/1936 08/24/19551 AMYLASEPLAS 23* 19* 19* Recent Labs 08/22/1939 08/23/1936 08/24/19551 WBC 6.54 5.03 4.47 HB 9.8* 8.5* [...] # OLTx OOB, JEANNETTE duenas Asa 325 Will discontinue albumin today - [...] MD PGY 3 Associated attestation - Una Bazan MD - 08/25/2019 11:12 AM PSTTransplant/ Hepatobilia ry Staff Note I saw and evaluated the patient. I agree with the findings and the plan of care as dominick machado in Dr. Pantoja's note. OLTx 08/16/19, for ETOH and MARS cirrhosis, OOB, JEANNETTE duenas, Asa 3 25 Will discontinue albumin today [...] likely Saturday or . UNA BAZAN MD surveillance sensor officer Chief, Abdominal Organ Transplantation - Hepatobiliary Surgery [id number] [place] [address] Amaris Medina LCSW - 08/24/2019 9:58 AM PSTPost- Transplant Social Work Inpatient Co ntact- Discharge visit Purpose of Visit: CODE ENFORCEMENT SUPERVISOR met w/pt for transplant social work visit [...] sister is able to come out from [place] next week. Pt sent some time discussing his c oncerns around correctional food service supervisor Delays while inpatient. This has been a point of frustration fo r pt, as he understands he needs to eat every 12 hours for his medications. Pt will meet wit h cheerleading coach today, to further discuss his diet and dietary restrictions. Post-Hospital Support Plan: Pt will recover at a house he and his family has rented in [place]. They have the house re nted through [...] further psychosocial needs identified at this time. CODE ENFORCEMENT SUPERVISOR will plan to follow up with pat ient and family post discharge at clinic appointments and as needed. Amaris Medina LCSW Clinical Transplant Float Electric Frying Pan Repairer Pager: [phone] signed by Amaris Medina LCSW at 08/24/2019 10:21 AM PSTByl teresa FadiaDO - 08/24/2019 9:37 AM PSTFormatting of this [...] O2 Delivery Device: None (room air) (08/24/19 0209) 24 Hour Vital Min/Max: Systolic (24hrs), Av [...] any additions or exceptions. HAKAN ROBERTS MD [facility] [address] [place] [address] Homero Cid MD - 08/23/2019 2:15 PM [...] 100 % Max: 100 % Intake/Output 08/21 07 - 08/22 0700 08/22 07 - 08/23 0700 08/23 07 - 08/24 0700 [address]90 2105 1110 [...] in place Psychiatric: Cooperative. Data Recent Labs 08/21/19 0658 08/22/19 0539 08/23/19 0536 08/23/19 0725 08/23/19 1246 [...] in this interval not displayed. Recent Labs 08/21/1965708/22/1953808/23/19 0536 AST 15 13 11 ALT 82* 59 44 TBILI 1.6* 1.3* 1.1 AP 44* 32* 29* ALB 4.5 3.9 3.6 TP 6.9 5.7* 5.4* Recent Labs 08/21/1958 08/22/19 0539 08/23/19 0536 AMYLASEPLAS 19* 23* 19* Recent Labs 08/21/1965708/22/19 0539 08/23/19 0536 WBC 10.19 6.54 5.03 HB 11.0* 9.8* 8.5* HCT 34.2* 29.3* 26.0* PLT 68* 53* 47* NEUTROPERC 79.2* 79.5* 76.7* LYMPHPERC 10.2* 11.6* 12.9* MONOPERC 7.6 6.1 7.0 BASOPERC 0.2 0.2 0.2 EOSPERC 1.5 1.2 2.4 Recent Labs 08/21/1965708/22/1939 08/23/19 0535 INRPT 1.27* 1.31* 1.39* Assessment [...] General Surgery R4 Abdominal Transplant Surgery Pager: [phone] Associated attestation - Una Bazan MD - [...] hypervolemia, acidosis and uremia, MS niall rojo. OCONSUELO, JEANNETTE hose Asa 325 Continue concentrated albumin [...] HD. Med teaching done. UNA BAZAN MD surveillance sensor officer Chief, Abdominal Organ Transplantation - Hepatobiliary Surgery [address] [address] Pramod Mccain MD - 08/23/2019 12:16 PM [...] otherwise noted. Pramod Black MD Pager # [phone] History of present illness: Reason for consult: [...] 1 tablet 1 tablet, oral, Q - Given: 08/21 904 valGANciclovir (VALCYTE) tablet [...] below were personal ly reviewed. Recent Labs 08/21/1965708/22/19 0539 08/23/19 0536 WBC 10.19 6.54 5.03 HB 11.0* 9.8* 8.5* HCT 34.2* 29.3* 26.0* PLT 68* 53* 47* NEUTROPERC 79.2* 79.5* 76.7* LYMPHPERC 10.2* 11.6* 12.9* MONOPERC 7.6 6.1 7.0 BASOPERC 0.2 0.2 0.2 EOSPERC 1.5 1.2 2.4 Recent Labs 08/21/1958 08/22/19 0539 08/23/19 0536 NA 132* 135* 137 K 4.6 5.4* 4.7 CL 102 104 106 BICARB 23 19* 25 BUN 129* 150* 99* CR 2.40* 2.58* 2.03* Recent Labs 08/21/1965708/22/19 0539 08/23/19 0536 CA 8.7 8.5* 8.1* ALB 4.5 3.9 3.6 MG 2.5 2.4 2.2 PO4 5.0* 6.8* 4.9* No results found for: PTH Lab Results Component Value Date [id number] 19.9 04/21/2019 Lab Results Component Value Date [...] today given marked hypervolemia . Agree wi th LASIX 60 mg IV x 1 Reassess [...] Intake/Output 08/20 701 - 08/21 0700 08/21 701 - 08/22 0708/22 - 08/23 0700 [address] 39[address] 790 I.V. [...] Soft, non-tender, non-distended incision healthy appearing with kaituska Neurologic: Alert, Oriented. Musculoskeletal: Normal range of [...] in this interval not displayed. Recent Labs 08/20/19 0609 08/21/19 0658 08/22/19 0539 AST 18 15 13 ALT 101* 82* 59 TBILI 1.5* 1.6* 1.3* AP 39* 44* 32* ALB 3.8 4.5 3.9 TP 6.1* 6.9 5.7* Recent Labs 08/20/19 0609 PREALB 23.0 Recent Labs 08/20/19 0609 08/21/19 0658 08/22/19 0539 AMYLASEPLAS 18* 19* 23* Recent Labs 08/20/19 0609 08/21/19 0658 08/22/19 0539 WBC 5.97 10. 6.54 HB 9.6* 11.0* 9.8* HCT 29.5* 34.2* 29.3* PLT 38* 68* 53* NEUTROPERC 82.1* 79.2* 79.5* LYMPHPERC 9.5* 10.2* 11.6* MONOPERC 6.9 7.6 6.1 BASOPERC 0.2 0.2 0.2 EOSPERC 0.5* 1.5 1.2 Recent Labs 08/20/19 0609 08/21/19 0658 08/22/19 0539 INRPT 1.33* 1.27* 1.31* Assessment [...] General Surgery R4 Abdominal Transplant Surgery Pager: [phone] Associated attestation - Una Bazan MD - [...] function. Increasing his nutriti on and conditioning. OOB, JEANNETTE hose Asa 325 Continue albumin [...] Dispo Continue acute care UNA BAZAN MD surveillance sensor officer Chief, Abdominal Organ Transplantation - Hepatobiliary Surgery [address] [phone] Pattie Ignacio PA-C - 08/21/2019 6:30 AM [...] Intake/Output 08/19 701 - 08/20 0700 08/20 0701 - 08/21 0700 [address]O. [address] 3912 I.V. [...] in this interval not displayed. Recent Labs 08/19/1962308/20/19 06 AST 23 18 ALT 122* 101* TBILI 1.5* 1.5* AP 33* 39* ALB 3.5 3.8 TP 5.4* 6.1* Recent Labs 08/20/19608 PREALB 23.0 Recent Labs 08/19/1962308/20/19 06 AMYLASEPLAS 15* 18* Recent Labs 08/19/1962308/20/19 06 WBC 3.91 5.97 HB 8.6* 9.6* HCT 25.8* 29.5* PLT 25* 38* NEUTROPERC 83.0* 82.1* LYMPHPERC 8.7* 9.5* MONOPERC 7.2 6.9 BASOPERC 0.0 0.2 EOSPERC 0.3* 0.5* Recent Labs 08/19/1962308/20/19 06 INRPT 1.37* 1.33* Assessment and Plan: ASSESSMENT Doug Lawson is a 54 y.o. male with EtOH cirrhosis s/p OLTx on 08/16. He had a prol onged inpatient course prior to transplant; was deconditioned and malnourished. He continues to do well with appropriate graft function. Increasing his nutrition and conditioning. Plan # OLTx OOB, JEANNETTE ángele Asa 325 Continue albumin for kidney function [...] Pattie Ignacio PA-C Abdominal Transplant Surgery Pager: [phone] nox ALEX, Nisreen Leyva - 08/20/2019 10:54 AM PDTAbdominal Transplant Surgery [...] care Pattie Ignacio PA-C Abdominal Organ Transplant rannell, Homero Coats MD - 08/18/2019 1:16 PM PDTAbdominal Transplant [...] to goal TF Regular diet + supplements MonserratOB, JEANNETTE duenas Asa Empty drain once per shift # Immunosuppression. CMV -/+ Continue MMF, tacro and prednisone taper. Will use PO MMF Ganciclovir --> Valgan 450, tmp/smx, fluconazole # h/o afib/flutter and wide complex tachycardia intraop Continue PO amiodarone Continue metop # T2DM: difficult to control Cont insulin gtt # Dispo Ibarra W. Dano iCd MD General Surgery R4 Associated attestation - [...] the resident s note. MARSHA GARCIA MD [facility] [address] [place] [phone] Homero Cid MD - 08/17/2019 8:40 AM [...] the resident s note. MARSHA GARCIA MD [address] [place] [address] Zunilda Gamez ACNP - 08/17/2019 6:38 AM PDT Trauma [...] None Labs: Pertinent labs were reviewed in [facility]. Imaging: Pertinent imaging was reviewed in [facility]. Physical Exam: BP 121/67 | Pulse [...] overload: ? Hematology involved ? Continue home jsyqijqkonl0319 mg TID when directed by Tx Acute [...] AM PDTI saw and examined Doug Lawson ([id number]) with the ICU team on 08/17/2019. I [...] following and rev iewed and immunosuppression schedule. manager of allied health services for disposition planning and placement. Seth Messina MD Ski Top Trimmer Division of Trauma and Critical Care Homa [...] of teaching and procedures. Felisha Arroyo MD Trimmer Helper Division of Trauma, Critical Care and Acute Care Surgery Office: [phone] Pager: [phone] This has been electronically signed by Felisha [...] organ suitable NPO now MARSHA GARCIA MD [address] [place] [address] Maryam Handley MD - 07/22 9:37 AM [...] knee aspirate demonstrating findings most consistent with hemarthrosis.He'distresser monstrated noovert GI bleeding;so endoscopic work-up for [...] who agrees with above. Maryam Baldwin MD [facility] Transplant Hepatology Fellow IE/S: - Complaining of [...] 55* 60* 59* Recent Labs 08/13/1944008/14/19 0547 08/15/194 08/15/19 0639 08/15/19 0741 NA 135* -- [...] Intake/Output Summary (Last 24 hours) at 08/15/2019 07 Last data filed at 08/15/2019 0500 Gross [...] - Nutrition following, appreciate recs. - VitD 10985 U qweekly + multivitamin without iron started [...] strips, humalog and humalin pens sent to [facility] to deter mine coverage/copay per DM [...] No symptoms of anemia. - Continue home ziylougqejg1215 mg TID. - Zinc 50 mg PO [...] if he goes into afib with RVR, [facility] recommends continuing amiodarone. - Rate control: metoprolol [...] are planning to take turns coming from [place] to provide care, once he g ets his transplant. Surrogate Decision Maker Primary Surrogate Decision Maker Doreen norwood [phone] Secondary Surrogate Decision Maker Priyanka Rivera mother CODE:Full This patient was seen and examined by Dr. Hernadez, who agrees with the assessment and plan unless otherwise stated. Eliane Garza MD Internal Medicine [id number] signed by Jackie Hernadez MD at 08/15/2019 [...] agree with plan as outlined in team noteAngela Thurston - 08/15/2019 6:51 AM PDT PA Student Progress Note Attending Physician: Jackie Hernadez MD Author: [facility] Day: 29 Interval hx: Hgb down [...] 72 hours (or 3 results) Recent Labs 08/13/1944008/14/19 0547 08/15/19 0454 WBC 4.39 4.37 4.69 HB 7.0* 7.1* 6.7* HCT 21.1* 22.0* 21.0* PLT 55* 60* 59* Chemistries last 72 Hours (or 3 results): Recent Labs 08/13/1944008/14/19 0547 08/15/19 0454 NA 135* 135* 134* K 4.3 4.6 [...] 08/11/19 Micro: Cultures from 08/14- pending Pending:None Gretel HE Assessment (A): 08/12/19: 96 seconds [...] characteristics, greatly improved from time of admission.Ab spann assessed for tapable ascites pocket negative on 08/13.HE seemingly stable at current b aseline, pt speaks with linear thought pattern and speech, asterixis is baseline at very mil d tremor. Pt on top of transplant list with MELD-BO76xino calc on 08/11. Dx:Daily CMP and INR [...] to transplant, recommended DHT. - DHT placed 10/12, TFs started 08/02. - TF changed to nocturnal only to promote PO intake during the day. - Nutrition following, appreciate recs. - VitD 32947 U qweekly + multivitamin without iron started [...] U TID WM - D/C SSI - visual educator reference - need to refer to outpatient diabetes clinic before DC - freestyle glucometer, lancets, test strips, humalog and humalin pens sent to [facility] to deter mine coverage/copay per DM [...] No symptoms of anemia. - Continue home zavlwyuwguz7188 mg TID. - Active type and screen [...] this is a common side effect. -ctm Angela NAIK Student [facility] Pager [phone] Associated attestation - Zahida Grimaldo MD - [...] for HE. Zahida Grimaldo MD PGY-3, [facility] 08/14/2019 7:40 AM PDTFormatting of this note might b e different from the original. PA Student Progress Note Attending Physician: Jackie Hernadez MD Author: [facility] Day: 28 ID: Doug Lawson is a [...] (or 3 results) Recent Labs 08/12/19 0637 08/13/19 0441 08/14/19 0547 WBC 3.63 4.39 4.37 HB 7.0* 7.0* 7.1* HCT 21.6* 21.1* 22.0* PLT 56* 55* 60* Chemistries last 72 Hours (or 3 results): Recent Labs 08/12/19 0637 08/13/19 0441 08/14/19 0547 NA 135* 135* 135* K 4.1 [...] Pt on top of transplant list with MELD-[id number] calc on 08/11. Dx:Daily CMP and INR [...] - Nutrition following, appreciate recs. - VitD 90466 U qweekly + multivitamin without iron started [...] U TID WM - D/C SSI - visual educator reference - need to refer to outpatient diabetes clinic before DC - freestyle glucometer, lancets, test strips, humalog and humalin pens sent to [facility] to deter mine coverage/copay per DM [...] No symptoms of anemia. - Continue home nnxmeajcfmy5134 mg TID. - Active type and screen [...] are planning to take turns coming from [place] to provide care, once he g ets his transplant. Angela Thurston PA Student [facility] [place] Pager [phone] Associated attestation - Zahida Grimaldo MD - 08/15/2019 3:29 PM PDTAgree with PA Student Nixon rivera's [...] for HE. Zahida Grimaldo MD PGY-3, [facility]Eliane naranjo MD - 08/14/2019 6:55 AM PDT [...] - Nutrition following, appreciate recs. - VitD 81591 U qweekly + multivitamin without iron started [...] strips, humalog and humalin pens sent to [facility] to deter mine coverage/copay per DM [...] No symptoms of anemia. - Continue home makizelyevu5645 mg TID. - Zinc 50 mg PO [...] if he goes into afib with RVR, [facility] recommends continuing amiodarone. - Rate control: metoprolol [...] are planning to take turns coming from [place] to provide care, once he g ets his transplant. Surrogate Decision Maker Primary Surrogate Decision Maker Doreen norwood [phone] Secondary Surrogate Decision Maker Priyanka Rivera mother CODE:Full This patient was seen and examined by Dr. Hernadez, who agrees with the assessment and plan unless otherwise stated. Eliane Garza MD Internal Medicine [id number] signed by Jackie Hernadez MD at 08/15/2019 [...] knee aspirate demonstrating findings most consistent with hemarthrosis.He'distresser monstrated noovert GI bleeding;so endoscopic work-up for [...] Henrique Chapa MD Gastroenterology & Hepatology Fellow Pager:[phone] IE/S: Had low grade fever overnight. Had 3 BMs/last 24 hours. Denies abdominal pain or confusi on. States medicine team came by yesterday to assess for tappable ascites, but there was non e. O: Medications: Medications Scheduled Medication Dose/Rate, Route, Frequency Last Action amiodarone (CORDARONE) tablet 200 mg 200 mg, oral, DAILY Given: 08/13 936 cholecalciferol (VITAMIN D3) capsule 50,000 Units 50,000 [...] Units 66 Units, subQ, HS Given: 08/14 15 lactulose (ENULAC) 10 g 10 g, oral, [...] distended Neuro: no asterixis Labs: Recent Labs 08/11/1954708/12/1963608/13/19440 WBC 4.14 3.63 4.39 HB 6.9* 7.0* 7.0* HCT 20.4* 21.6* 21.1* PLT 54* 56* 55* Recent Labs 08/11/1954708/12/1963608/13/1944008/13/19 1545 08/13/19203808/14/19 0001 NA 133* -- 135* [...] as outlined above. MD Mariaa Sanchez MD [address] [place] [address] Zahida Grimaldo MD - 08/13/2019 3:18 PM [...] (or 3 results) - Refreshable Recent Labs 08/11/1954708/12/1963608/13/19 0441 08/13/1932 08/13/19 0928 NA 133* -- 135* -- [...] (or 3 results) - Refreshable Recent Labs 08/11/1954708/12/19637 07/24/19 0441 WBC 4.14 3.63 4.39 HB 6.9* [...] - Nutrition following, appreciate recs. - VitD 19921 U qweekly + multivitamin without iron started [...] strips, humalog and humalin pens sent to [facility] to deter mine coverage/copay per DM [...] No symptoms of anemia. - Continue home qqpqqkeiosz9707 mg TID. - Zinc 50 mg PO [...] if he goes into afib with RVR, [employer] recommends continuing amiodarone. - Rate control: metoprolol [...] are planning to take turns coming from [place] to provide care, once he g ets his transplant. Surrogate Decision Maker Primary Surrogate Decision Maker Doreen sister [phone] Secondary Surrogate Decision Maker Priyanka Rivera mother [...] Donell awaits transplantation for ESLD/ MELD 36 Angela Thurston - 08/13/2019 7:12 AM PDTFormatting of this note might be different from the martha younger. PA Student Progress Note Attending Physician: Jackie Hernadez MD Author: Angela Karena Hospital Day: 27 Interval hx: Pt states he [...] of hospital stay after being BIBA to [place] with AMS and CBG 584 without previou s hx of diabetes leading to [facility] admission for HRS 2/2 ESLD c/b HE. [...] 08/11/19 MELD: 31 08/11/19 Micro:None Pending: None Rekailyn HE Assessment (A): 08/12/19: 96 seconds 08/13/19: [...] 2/2 hx of alcohol use disorder. Physical exautumn miranda is consistent with liver disease, he is [...] - Nutrition following, appreciate recs. - VitD 07435 U qweekly + multivitamin without iron started [...] U TID WM - D/C SSI - visual educator reference - need to refer to outpatient diabetes clinic before DC - freestyle glucometer, lancets, test strips, humalog and humalin pens sent to [facility] to deter mine coverage/copay per DM [...] No symptoms of anemia. - Continue home nqbvbagsptr9221 mg TID. - Active type and screen [...] are planning to take turns coming from [place] to provide care, once he g ets his transplant. Surrogate Decision Maker Primary Surrogate Decision Maker Doreen sister [phone] Secondary Surrogate Decision Maker Priyanka Rivera mother CODE:Full Angela NAIK Student [facility] Pager [phone] Associated attestation - Zahida Grimaldo MD - [...] for HE. Zahida Grimaldo MD PGY-3, Internal MedicineCho, MD Henrique - 08/13/2019 5:56 AM PDTFormatting of this [...] knee aspirate demonstrating findings most consistent with hemarthrosis.He'distresser monstrated noovert GI bleeding;so endoscopic work-up for [...] Henrique Chapa MD Gastroenterology & Hepatology Fellow Pager:[phone] IE/S: More slow in mentation today; only [...] Units 4 Units, subQ, QID Given: 08/11 0748 insulin lispro (HUMALOG) injection 15 Units 7 Units, subQ, TID W/MEALS Given: 08/12 185 insulin NPH (HUMULIN N) injection 25 Units 25 Units, subQ, BEFORE BREAKFAST Given: 08/12 0 628 insulin NPH (HUMULIN N) injection 66 [...] distended Neuro: Mild asterixis Labs: Recent Labs 08/11/1954708/12/1937 08/13/19440 WBC 4.14 3.63 4.39 HB 6.9* 7.0* 7.0* HCT 20.4* 21.6* 21.1* PLT 54* 56* 55* Recent Labs 08/10/1944808/11/19 0548 08/12/19 0637 08/12/19 1852 08/12/19222708/13/19 0133 NA 130* -- 133* -- 135* [...] as outlined above. MD Mariaa Sanchez MD [address] [place] [address] Eliane Garaz MD - 08/12/2019 7:02 AM PDT GENERAL MEDICINE PROGRESS NOTE Author: Eliane Gazra MD Attending Physician: Jackie Hernadez MD Hospital Day: 26 ID: ESLD, afib, spur cell anemia, secondary [...] Intake/Output Summary (Last 24 hours) at 08/12/2019 0702 Last data filed at 08/12/2019 0545 Gross [...] Refreshable Recent Labs 08/10/19 0449 08/11/19 0548 08/11/19 2057 08/11/19 2246 08/12/19 0613 NA 130* -- [...] - Nutrition following, appreciate recs. - VitD 56805 U qweekly + multivitamin without iron started [...] No symptoms of anemia. - Continue home aolyovpmjfu6732 mg TID. - Zinc 50 mg PO [...] are planning to take turns coming from [place] to provide care, once he g ets his transplant. Surrogate Decision Maker Primary Surrogate Decision Maker Doreen sister [phone] Secondary Surrogate Decision Maker Priyanka Rivera mother CODE:Full This patient was seen and examined by Dr. Hernadez, who agrees with the assessment and plan unless otherwise stated. Eliane Garza MD Internal Medicine [id number] signed by Jackie Hernadez MD at 08/13/2019 [...] frequency. Rest of plan per excellent team note.KarenaAngela - 08/12/2019 6:43 AM PDTFormatt ing of this note might be different from the original. PA Student Progress Note Attending Physician: Jackie Hernadez MD Author: Angela Derrekyamileth [facility] Day: 26 Interval hx: Pt is cheerful, sitting comfortable in the hospital bed and is looking forward to his siste r and mother visiting from [place] later in the morning.Pt reports feeling well [...] of hospital stay after being BIBA to [place] with AMS and CBG 584 without previous hx of diabetes leading to [facility] admission for HRS 2/2 ESLD c/b HE. Pt developed SVT resultin g in admission to MICU where he was loaded with amiodarone before being transferred to the [facility] on 07/22 where he is being optimized [...] 72 Hours (or 3 results): Recent Labs 08/10/19 0449 08/11/19 0548 NA 130* 133* K 4.6 4.6 [...] of hospital stay after being BIBA to [facility] with AMS and CBG 584 without previous hx of diabetes leading to [facility] admission for HRS 2/2 ESLD c/b HE. Pt developed SVT resultin g in admission to MICU where he was loaded with amiodarone before being transferred to the [facility] on 07/22 where he is being optimized [...] - Nutrition following, appreciate recs. - VitD 72047 U qweekly + multivitamin without iron started [...] U TID WM - D/C SSI - visual educator reference - need to refer to outpatient diabetes clinic before DC - freestyle glucometer, lancets, test strips, humalog and humalin pens sent to [facility] to deter mine coverage/copay per DM [...] No symptoms of anemia. - Continue home oplhyiyggur6528 mg TID. - Active type and screen [...] are planning to take turns coming from [place] to provide care, once he g ets his transplant. They will be herenext week (08/12). Surrogate Decision Maker Primary Surrogate Decision Maker Doreen sister [phone] Secondary Surrogate Decision Maker Priyanka Rivera mother CODE:Full This patient was seen and examined by Dr. Hernadez, who agrees with the assessment and plan . Angela NAIK Student [facility] Pager [phone] Associated attestation - Zahida Grimaldo MD - 08/12/2019 5:44 PM PDTAgree with PA Student Nixon rivera'yarely assessment and plan as outlined in note. [...] knee aspirate demonstrating findings most consistent with hemarthrosis.He'distresser monstrated noovert GI bleeding;so endoscopic work-up for [...] Henrique Chapa MD Gastroenterology & Hepatology Fellow Pager:[phone] IE/S: Doing well this morning, ambulating in [...] 20.5* 20.4* PLT 49* 54* Recent Labs 08/09/1943808/10/1944808/11/1954708/11/19205608/11/19224508/12/1913 NA 128* -- 130* -- 133* -- [...] as outlined above. MD Mariaa Sanchez MD [address] [place] [address] Angela Thurston - 08/11/2019 1:31 PM PDTFormatting of this note might be different from the martha carisa. GENERAL MEDICINE PROGRESS NOTE Author: Angela Thurston [...] Labs 08/09/19 0439 08/10/19 0449 08/11/19 0548 08/11/19 0731 08/11/19 0743 08/11/19 1326 [...] None Imaging: None Assessment and Plan: Doug Dominguez Rufusdwight is a 54 y.o. 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 Pt is on da y 25 of hospital stay after being BIBA to [facility] with AMS and CBG 584 without previous hx of diabetes leading to [facility] admission for HRS 2/2 ESLD c/b HE. Pt developed SVT resultin g in admission to MICU where he was loaded with amiodarone before being transferred to the [facility] on 07/22 where he is being optimized [...] - Nutrition following, appreciate recs. - VitD 88844 U qweekly + multivitamin without iron started [...] U TID WM - D/C SSI - visual educator reference - need to refer to outpatient diabetes clinic before DC - freestyle glucometer, lancets, test strips, humalog and humalin pens sent to [facility] to deter mine coverage/copay per DM [...] No symptoms of anemia. - Continue home qwukbbdythg2309 mg TID. - Active type and screen [...] are planning to take turns coming from [place] to provide care, once he g ets his transplant. They will be herenext week (08/12). Surrogate Decision Maker Primary Surrogate Decision Maker Doreen norwood [phone] Secondary Surrogate Decision Maker Priyanka Rivera mother CODE:Full This patient was seen and examined by Dr. Hernadez, who agrees with the assessment and plan . IRASEMA Vargas, [facility] Associated attestation - Jackie Hernadez MD - [...] Intake/Output Summary (Last 24 hours) at 08/11/2019 07 Last data filed at 08/11/2019 0250 Gross [...] - Nutrition following, appreciate recs. - VitD 13417 U qweekly + multivitamin without iron started [...] strips, humalog and humalin pens sent to [facility] to deter mine coverage/copay per DM [...] No symptoms of anemia. - Continue home fzrzdujyabc6714 mg TID. - Zinc 50 mg PO [...] are planning to take turns coming from [place] to provide care, once he g ets his transplant. Surrogate Decision Maker Primary Surrogate Decision Maker Doreen sister [phone] Secondary Surrogate Decision Maker Priyanka Rivera mother CODE:Full This patient was seen and examined by Dr. Hernadez, who agrees with the assessment and plan unless otherwise stated. Eliane Garza MD Internal Medicine [id number] signed by Jackie Hernadez MD at 08/11/2019 [...] knee aspirate demonstrating findings most consistent with hemarthrosis.He'distresser monstrated noovert GI bleeding;so endoscopic work-up for [...] Henrique Chapa MD Gastroenterology & Hepatology Fellow Pager:[phone] IE/S: Tube feeds held overnight, with diarrhea [...] 20.4* PLT 52* 49* 54* Recent Labs 08/09/1943808/10/1944808/10/199 08/11/19 0250 08/11/19 0548 NA 128* -- [...] as outlined above. MD Mariaa Sanchez MD [address] [place] [address] Henrique Chapa MD - 08/10/2019 7:40 AM [...] knee aspirate demonstrating findings most consistent with hemarthrosis.He'distresser monstrated noovert GI bleeding;so endoscopic work-up for [...] Henrique Chapa MD Gastroenterology & Hepatology Fellow Pager:[phone] IE/S: Ate full breakfast this morning. Denies [...] distended Neuro: No asterixis Labs: Recent Labs 08/08/1918 08/09/19 0439 08/10/19 0449 WBC 4.56 4.27 [...] as outlined above. MD Mariaa Sanchez MD [address] [place] [address] Eliane Garza MD - 08/10/2019 7:17 AM [...] Intake/Output Summary (Last 24 hours) at 08/10/2019 0717 Last data filed at 08/10/2019 0633 Gross [...] - Nutrition following, appreciate recs. - VitD 79907 U qweekly + multivitamin without iron started [...] strips, humalog and humalin pens sent to [facility] to deter mine coverage/copay per DM [...] No symptoms of anemia. - Continue home pmyszhvzmnc2128 mg TID. - Zinc 50 mg PO [...] are planning to take turns coming from [place] to provide care, once he g ets his transplant. They will be here next week (08/12). Surrogate Decision Maker Primary Surrogate Decision Maker Doreen sister [phone] Secondary Surrogate Decision Maker Priyanka Rivera mother CODE:Full This patient was seen and examined by Dr. Hernadez, who agrees with the assessment and plan unless otherwise stated. Eliane Garza MD Internal Medicine [id number] signed by Jackie Hernadez MD at 08/11/2019 [...] Author: Eliane Garza MD Attending Physician: Jackie Herndaez MD Hospital Day: ID: ESLD, afib, spur [...] Intake/Output Summary (Last 24 hours) at 08/09/2019 0722 Last data filed at 08/09/2019 0400 Gross [...] 3 results) - Refreshable Recent Labs 08/07/19 05008/08/1951708/09/19 0249 08/09/19 0334 08/09/19438 NA 130* -- 129* -- -- -- [...] (or 3 results) - Refreshable Recent Labs 08/08/1951708/09/19438 WBC 4.56 4.27 HB [...] - Nutrition following, appreciate recs. - VitD 05099 U qweekly + multivitamin without iron started [...] strips, humalog and humalin pens sent to [facility] to deter mine coverage/copay per DM [...] No symptoms of anemia. - Continue home kscswwaqwvc9635 mg TID. - Zinc 50 mg PO [...] if he goes into afib with RVR, [facility] recommends continuing amiodarone. - Rate control: metoprolol [...] are planning to take turns coming from [place] to provide care, once he g ets his transplant. They will be here next week (08/12). Surrogate Decision Maker Primary Surrogate Decision Maker Doreen sister [phone] Secondary Surrogate Decision Maker Priyanka Rivera mother CODE:Full This patient was seen and examined by Dr. Hernadez, who agrees with the assessment and plan unless otherwise stated. Eliane Garza MD Internal Medicine [id number] signed by Jackie Hernadez MD at 08/11/2019 [...] knee aspirate demonstrating findings most consistent with hemarthrosis.He'distresser monstrated noovert GI bleeding;so endoscopic work-up for [...] Henrique Chapa MD Gastroenterology & Hepatology Fellow Pager:[phone] IE/S: Feels well this morning; ate his full meal. Denies confusion or abdominal pain. O: Medications: Medications Scheduled Medication Dose/Rate, Route, Frequency Last Action amiodarone (CORDARONE) tablet 200 mg 200 mg, oral, DAILY Given: 08/07 834 cholecalciferol (VITAMIN D3) capsule 50,000 Units 50,000 [...] distended Neuro: No asterixis Labs: Recent Labs 08/06/1945208/08/19517 WBC 4.12 4.56 HB [...] history and physical exam with the GI feed house supervisor, and dis cussed the case with the feed house supervisor. I confirmed the tamez elements of the history and exam ined patient. I agree with the feed house supervisor's documentation with the following additions an d revisions. In good spirits. Will monitor Cr, Hg, nutritional intake, ambulation while awaiting OLT. Tyson Omalley MD, MS, AGNIESZKA manager room Director of Clinical Hepatology [facility] Division of Gastroenterology/Hepatology [facility] DEPARTMENT: Hepatology - [id number] Place of Service: HOSP CSN: [id number] Suggested Modifiers: GC - Resident Involved Eliane [...] Intake/Output Summary (Last 24 hours) at 08/08/2019 0732 Last data filed at 08/08/2019 0500 Gross [...] - Nutrition following, appreciate recs. - VitD 79658 U qweekly + multivitamin without iron started [...] strips, humalog and humalin pens sent to [facility] to deter mine coverage/copay per DM [...] No symptoms of anemia. - Continue home yloalkbvwol1549 mg TID. - Zinc 50 mg PO [...] are planning to take turns coming from [place] to provide care, once he g ets his transplant. They will be here next week (08/12). Surrogate Decision Maker Primary Surrogate Decision Maker Doreen sister [phone] Secondary Surrogate Decision Maker Priyanka Rivera mother CODE:Full This patient was seen and examined by Dr. Hernadez, who agrees with the assessment and plan unless otherwise stated. Eliane Garza MD Internal Medicine [id number] signed by Jackie Hernadez MD at 08/09/2019 [...] 72 hours (or 3 results) Recent Labs 08/08/19 0518 08/09/19 0439 WBC [...] PM PDTLiver Cox splant Social Work Note: CODE ENFORCEMENT SUPERVISOR met with pt at bedside to check-in [...] any needs or concerns at this time. CODE ENFORCEMENT SUPERVISOR will continue to follow and check-in wit h pt. Please page should any psychosocial needs arise. WINIFRED Mckenzie, JACOBY Clinical Transplant Float Electric Frying Pan Repairer Pager: [phone] signed by Amaris Medina LCSW at 08/07/2019 [...] - Nutrition following, appreciate recs. - VitD 14070 U qweekly + multivitamin without iron started [...] strips, humalog and humalin pens sent to [facility] to deter mine coverage/copay per DM [...] No symptoms of anemia. - Continue home [id number] mg TID. - Zinc 50 mg PO [...] if he goes into afib with RVR, [facility] recommends continuing amiodarone. - Rate control: metoprolol [...] are planning to take turns coming from [place] to provide care, once he g ets his transplant. They will be here next week (08/12). Surrogate Decision Maker Primary Surrogate Decision Maker Doreen norwood [phone] Secondary Surrogate Decision Maker Priyanka Rivera mother CODE:Full This patient was seen and examined by Dr. Hernadez, who agrees with the assessment and plan unless otherwise stated. Eliane Garza MD Internal Medicine [id number] signed by Jackie Hernadez MD at 08/08/2019 [...] endoscopic work-up for this is unmerited in th e setting of known spur cell anemia. [...] PO amiodarone and metoprolol and perdiscussions withEP attendi Dr. Mcintyre, hisSVTs should not preclude pt [...] Henrique Chapa MD Gastroenterology & Hepatology Fellow Pager:[phone] IE/S: Eating breakfast this morning (consumed full meal). Denies confusion or pain. O: Medications: Medications Scheduled Medication Dose/Rate, Route, Frequency Last Action amiodarone (CORDARONE) tablet 200 mg 200 mg, oral, DAILY Given: 08/06 802 cholecalciferol (VITAMIN D3) capsule 50,000 Units 50,000 Units, oral, Q7D Given: 07/31 171 2 deferiprone tab 2,000 mg 2,000 mg, oral, TID Given: 08/06 2132 insulin lispro (HUMALOG) injection 1-16 Units 10 Units, subQ, DAILY Given: 08/07 332 insulin lispro (HUMALOG) injection 1-16 Units 4 Units, subQ, QID Given: 08/06 131 insulin lispro (HUMALOG) injection 15 Units 15 Units, subQ, TID W/MEALS Given: 10/17 1829 insulin NPH (HUMULIN N) injection 25 [...] distended Neuro: No asterixis Labs: Recent Labs 08/06/19 0453 WBC 4.12 HB [...] history and physical exam with the GI feed house supervisor, and dis cussed the case with the feed house supervisor. I confirmed the tamez elements of the history and exam ined patient. I agree with the feed house supervisor's documentation with the following additions an d revisions. Tyson Omalley MD, MS, AGNIESZKA manager room Director of Clinical Hepatology [facility] Division of Gastroenterology/Hepatology [facility] DEPARTMENT: Hepatology - [id number] Place of Service: HOSP CSN: [id number] Suggested Modifiers: GC - Resident Involved Zahida [...] Intake/Output Summary (Last 24 hours) at 08/06/2019 1737 Last data filed at 08/06/2019 1315 Gross [...] Refreshable Recent Labs 08/04/1961008/05/19 0516 08/06/19 0310 08/06/193 08/06/19 1304 NA 129* -- 131* -- [...] recs. - reordered calorie count - VitD 40372 U qweekly + multivitamin without iron started [...] strips, humalog and humalin pens sent to [facility] to deter mine coverage/copay per DM RN request- appreciate assistance with educating patient on this new diagnosis # Spur cell anemia # Iron overload Goal hemoglobin of ~7. No evidence of bleeding. HDS. Hgb 6.9 today but will defer transfus ion due to margin of error of lab test as well as iron overload. No symptoms of anemia. - Continue home rttwizrnyjs7357 mg TID. - Zinc 50 mg PO [...] are planning to take turns coming from [place] to provide care, once he g ets his transplant. They will be here next week (08/12). Surrogate Decision Maker Primary Surrogate Decision Maker Doreen sister [phone] Secondary Surrogate Decision Maker Priyanka Rivera mother CODE:Full This patient was seen and examined by Dr. So, who agrees with the assessment and plan. Zahida Grimaldo MD PGY-3, Internal Medicine [id number] Associated attestation - Rex So MD - 08/06/2019 5:47 PM PDTBlood sugars are slight ly better with highest being 292. Tolerated tube feeds very well. No episodes of confusion . Walking in the [place] at least 5 times a day. On exam, Fully alert and oriented, making jokes Severe icterus. 2+ pitting edema lower extremities. Pykhr-ba-jngf ultrasound 08/03: Large spleen, no ascites A/P: [...] with the resident. I have reviewed the [facility] documentation and I agree with the findings, assessment, advice, orders and plan as are documented with changes documented as above in my note. Rex So MD professor of environmental science, Division of hospital medicine, Internal Medicine, [facility] [place], [place] Henrique - 08/06/2019 6:00 AM PDT [...] PO amiodarone and metoprolol and perdiscussions withEP attendi ng Dr. Mcintyre, hisSVTs should not preclude pt [...] Henrique Chapa MD Gastroenterology & Hepatology Fellow Pager:[phone] IE/S: Patient sleeping this morning. O: Medications: Medications Scheduled Medication Dose/Rate, Route, Frequency Last Action amiodarone (CORDARONE) tablet 200 mg 200 mg, oral, DAILY Given: 08/05 943 cholecalciferol (VITAMIN D3) capsule 50,000 Units 50,000 Units, oral, Q7D Given: 07/31 171 2 deferiprone tab 2,000 mg 2,000 mg, oral, TID Given: 08/05 2149 insulin lispro (HUMALOG) injection 1-16 Units 10 Units, subQ, DAILY Given: 08/06 316 insulin lispro (HUMALOG) injection 1-16 Units 2 Units, subQ, QID Given: 08/05 2332 insulin lispro (HUMALOG) injection 15 Units 15 Units, subQ, TID W/MEALS Given: 08/05 2022 insulin NPH (HUMULIN N) injection 25 Units 25 Units, subQ, BEFORE BREAKFAST Given: 08/05 0 637 insulin NPH (HUMULIN N) injection 50 [...] distended Neuro: No asterixis Labs: Recent Labs 08/04/19 0611 08/06/19 0453 WBC 4.53 4.12 HB 7.3* 6.9* HCT 21.8* 20.3* PLT 36* -- Recent Labs 08/04/19 0611 08/05/19 0516 08/05/19 2325 08/06/19 0310 08/06/19 0453 NA 129* -- 131* -- -- -- [...] history and physical exam with the GI feed house supervisor, and dis cussed the case with the feed house supervisor. I confirmed the tamez elements of the history and exam ined patient. I agree with the feed house supervisor's documentation with the following additions an d revisions. Tyson Omalley MD, MS, AGNIESZKA manager room Director of Clinical Hepatology [facility] Division of Gastroenterology/Hepatology [facility] DEPARTMENT: Hepatology - [phone] Place of Service: [facility] CSN: [id number] Suggested Modifiers: GC - Resident Involved Eliane [...] kg/m. Intake/Output Summary (Last 24 hours) at 08/05/2019 0658 Last data filed at 08/05/2019 0631 Gross per 24 hour Intake 4404 ml [...] Recent Labs 08/03/19 0714 08/04/19 0611 08/05/19 0232 08/05/19 0516 08/05/19 0631 NA 130* [...] (or 3 results) - Refreshable Recent Labs 08/04/19 0611 WBC 4.53 HB 7.3* HCT 21.8* PLT [...] recs. - reordered calorie count - VitD 51466 U qweekly + multivitamin without iron started [...] strips, humalog and humalin pens sent to [facility] to deter mine coverage/copay per DM RN request- appreciate assistance with educating patient on this new diagnosis # Spur cell anemia # Iron overload Goal hemoglobin of 7. No evidence of bleeding. HDS. - Continue home [id number] mg TID. - Zinc 50 mg PO [...] if he goes into afib with RVR, [facility] recommends continuing amiodarone. - Rate control: metoprolol [...] are planning to take turns coming from [place] to provide care, once he g ets his transplant. They will be here next week (08/12). Surrogate Decision Maker Primary Surrogate Decision Maker Doreen sister [phone] Secondary Surrogate Decision Maker Priyanka Rivera mother CODE:Full This patient was seen and examined by Dr. So, who agrees with the assessment and plan. Eliane Garza MD Internal Medicine PGY1 p [phone] Associated attestation - Rex So MD - 08/05/2019 6:40 PM PDTFeels well overall. Ho pes that his insulin requirement will be low when he goes home. Looking forward to receivin g the liver transplant during this admission. On exam, Fully alert and oriented, making jokes Severe icterus. 2+ pitting edema lower extremities. Zutcm-qt-hqxt ultrasound 08/03: Large spleen, no ascites 54 [...] with the resident. I have reviewed the [facility] documentation and I agree with the findings, assessment, advice, orders and plan as th ey are documented with changes documented as above in my note. Rex So MD professor of environmental science, Division of hospital medicine, Internal Medicine, [facility] [place], [place] Henrique - 08/05/2019 6:45 AM PDT [...] Henrique Chapa MD Gastroenterology & Hepatology Fellow Pager:[phone] IE/S: Feeling well and strong this morning; [...] 7.3* HCT 21.8* PLT 36* Recent Labs 08/02/1951708/03/1971308/04/1911 08/05/19 0232 08/05/19 0516 08/05/19 0631 NA 131* -- 130* -- 129* -- [...] history and physical exam with the GI feed house supervisor, and dis cussed the case with the feed house supervisor. I confirmed the tamez elements of the history and exam ined patient. I agree with the feed house supervisor's documentation with the following additions an d revisions. Tyson Omalley MD, MS, AGNIESZKA manager room Director of Clinical Hepatology [facility] Division of Gastroenterology/Hepatology [facility] DEPARTMENT: Hepatology - [phone] Place of Service: [facility]OSP CSN: [id number] Suggested Modifiers: GC - Resident Involved Henrique [...] known spur cell anemia. Transplant infectious disease mariano boyce weighed in,with no e/o infection/sepsis as etiology [...] Henrique Chapa MD Gastroenterology & Hepatology Fellow Pager:[phone] IE/S: Feels awake today, walking around the [...] percussion and moderately distended Labs: Recent Labs 08/01/1975408/02/19 0518 WBC 4.95 4.69 HB 8.2* 7.3* [...] history and physical exam with the GI feed house supervisor, and dis cussed the case with the feed house supervisor. I confirmed the tamez elements of the history and exam ined patient. I agree with the feed house supervisor's documentation with the following additions an d revisions. Appreciated the cardiology, anesthesia, Tx surgery input regarding OLT. Consensus to proceed with OLT, recognizing high risk, with amiodarone continuation as best pathway to allow life-saving procedure. While awaiting OLT, continuing nutrition, PT/OT and supportive care. Tyson Omalley MD, MS, AGNIESZKA manager room Director of Clinical Hepatology [facility] Division of Gastroenterology/Hepatology [facility] DEPARTMENT: Hepatology - [phone] Place of Service: [facility] CSN: [id number] Suggested Modifiers: GC - Resident Involved Eliane [...] hours (or 3 results) Recent Labs 07/30/19 0507/31/19 0441 08/01/19 0756 AST 68* 75* 97* [...] to calculate MELD daily per transplant request #AKR with concern for HRS Cr uptrending over [...] recs. - reordered calorie count - VitD 01174 U qweekly + multivitamin without iron started [...] strips, humalog and humalin pens sent to [facility] today to determine coverage/copay per DM RN request- appreciate assistance with educating patient on this new diagnosis # Spur cell anemia # Iron overload Goal hemoglobin of 7. No evidence of bleeding. HDS. - Continue home wxrsgjenboo0317 mg TID. - Zinc 50 mg PO [...] Maker Primary Surrogate Decision Maker Doreen norwood [phone] Secondary Surrogate Decision Maker Priyanka Rivera mother CODE:Full This patient was seen and examined by Dr. So, who agrees with the assessment and plan. Eliane Garza MD Internal Medicine PGY1 p [phone] Associated attestation - Rex So MD - 08/04/2019 5:46 PM PDTTold me that he is happ y to learn about his stable kidney disease being active. Feels that he probably is first or second in the list. Uncle and aunt are at bedside, were happy about this news. Severe icterus. 2+ pitting edema lower extremities. Xuhcg-gt-nexi ultrasound 08/03: Large spleen, no ascites 54 [...] with the resident. I have reviewed the [facility] documentation and I agree with the findings, assessment, advice, orders and plan as th ey are documented with changes documented as above in my note. Rex So MD professor of environmental science, Division of hospital medicine, Internal Medicine, [facility] Center[facility] MD - 08/03/2019 4:21 PM PDTFormatting of this n ote might be different from the original. GENERAL MEDICINE PROGRESS NOTE Author: Eliane Garza MD Attending Physician: Rex So MD Hospital Day: 17 ID: ESLD, afib, spur cell anemia, iron [...] 72 hours (or 3 results) Recent Labs 07/30/1952207/31/191 08/01/19755 AST 68* 75* 97* ALT 39 45 56 TBILI 10.5* 11.3* 11.2* AP 123 133* 146* ALB 2.9* 3.0* 3.2* TP 6.3* 6.6 7.0 CBC with diff last 72 hours (or 3 results) - Refreshable Recent Labs 08/01/1975408/02/19 0518 WBC 4.95 4.69 HB 8.2* 7.3* [...] evidence of bleeding. HDS. - Continue home [id number] mg TID. - Zinc 50 mg PO [...] day. - Nutrition following, appreciate recs. VitD 17121 U qweekly + multivitamin without iron st [...] Maker Primary Surrogate Decision Maker Doreen norwood [phone] Secondary Surrogate Decision Maker Priyanka Rivera mother CODE:Full This patient was seen and examined by Dr. So, who agrees with the assessment and plan. Thanks to Emeka Rowland, PA student, for his contributions to this note. Eliane Garza MD Internal Medicine PGY1 p [phone] Associated attestation - Rex So MD - [...] nontender and tympanic to percussion all over. Idyvb-tk-atht ultrasound: Large spleen, no ascites 54 year [...] with the resident. I have reviewed the [facility] documentation and I agree with the findings, assessment, advice, orders and plan as th ey are documented with changes documented as above in my note. Rex So MD professor of environmental science, Division of hospital medicine, Internal Medicine, [place] [...] EMILY D-Na of 32. Maryam Baldwin MD [facility] Transplant Hepatology Fellow 4:5 8 PM PDTChoHenrique [...] Henrique Chapa MD Gastroenterology & Hepatology Fellow Pager:[phone] IE/S: Tolerating feeds this morning; ambulating several [...] PLT 31* 30* Recent Labs 07/31/19 0441 08/01/196 08/02/1918 08/03/19 0007 08/03/19 0151 08/03/19 0605 [...] history and physical exam with the GI feed house supervisor, and dis cussed the case with the feed house supervisor. I confirmed the tamez elements of the history and exam ined patient. I agree with the feed house supervisor's documentation with the following additions an d [...] for OLT. Tyson Omalley MD, MS, AGNIESZKA manager room Director of Clinical Hepatology [facility] Division of Gastroenterology/Hepatology [facility] DEPARTMENT: Hepatology - [phone] Place of Service: [facility] CSN: [id number] Suggested Modifiers: GC - Resident Involved Eliane [...] 72 hours (or 3 results) Recent Labs 07/30/1923 07/31/1944008/01/19 0756 AST 68* 75* 97* ALT 39 45 56 TBILI 10.5* 11.3* 11.2* AP 123 133* 146* ALB 2.9* 3.0* 3.2* TP 6.3* 6.6 7.0 CBC with diff last 72 hours (or 3 results) - Refreshable Recent Labs 07/31/1944008/01/195 08/02/19 0518 WBC 4.09 4.95 4.69 HB 8.0* 8.2* [...] evidence of bleeding. HDS. - Continue home wwborcpvrsy9457 mg TID. - Zinc 50 mg PO [...] goal will transition to nocturnal feeds per cheerleading coach's recs to promote PO intake during the day - Nutrition following, appreciate recs. VitD 67280 U qweekly + multivitamin without iron st [...] Maker Primary Surrogate Decision Maker Doreen norwood [phone] Secondary Surrogate Decision Maker Priyanka Rivera mother CODE:Full This patient was seen and examined by Dr. So, who agrees with the assessment and plan. Eliane Garza MD Internal Medicine PGY1 p [phone] Associated attestation - Rex So MD - [...] with the resident. I have reviewed the [facility] documentation and I agree with the findings, assessment, advice, orders and plan as th ey are documented with changes documented as above in my note. I personally spent 41 minutes in the care of this patient today, more than 50% was spent in counseling and coordination. Rex So MD professor of environmental science, Division of hospital medicine, Internal Medicine, [facility] [...] (or 3 results) - Refreshable Recent Labs 07/30/1952207/31/1944008/01/1975508/01/19 0827 08/01/19 1213 NA 131* -- 132* [...] evidence of bleeding. HDS. - Continue home mwtedwcgccy3665 mg TID. - Zinc 50 mg PO [...] placed - Nutrition following, appreciate recs. VitD 78549 U qweekly + multivitamin without iron st arted 07/31. 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 Was on carb control diet but changed to regular to encourage more PO intake. - NPH 22 U BID - Lispro 10 U TID WM - change SSI to moderate today - informatics educator to see him as DM is new diagnosis as of this admission #Hyperthyroidism, mild - Unlikely to be driving tachycardia - Outpatient follow up Bowel Regimen: Lactulose Diet:Mechanical soft, thin liquids, regular DVT PPx:none Monitoring:tele for SVT Sleep: Melatonin PRN Surrogate Decision Maker Primary Surrogate Decision Maker Doreen norwood [phone] Secondary Surrogate Decision Maker Priyanka Rivera mother CODE:Full This patient was seen and examined by Dr. So, who agrees with the assessment and plan. Eliane Garza MD Internal Medicine PGY1 p [phone] Associated attestation - Rex So MD - [...] with the resident. I have reviewed the [facility] documentation and I agree with the findings, assessment, advice, orders and plan as th ey are documented with changes documented as above in my note. Rex So MD professor of environmental science, Division of hospital medicine, [facility] RN - 08/01/2019 9:55 AM PDT5A rm 5 pt Roger. Insert DH T order remains in [facility]. Please advise if DHT placement is indicated. Dipesh DONOHUE [id number]. 5a rm 5 pt Jeppe. Telemetry notified me of the QT interval of 540. Dipesh DONOHUE [id number] lly signed by Dipesh Hendrix RN at 08/01/2019 4:04 PM PDTAmanda Rosario MD - 08/01/2019 9:25 AM PDT Hepatology [...] discussed and formulated with hepatology attendDr. Kathrin araiza. Please call with any questions. Amanda Rosario MD Fellow, Gastroenterology and Hepatology Pager: [phone] Interval History: First DHT kinked in distal [...] hours (or 3 results) Recent Labs 07/30/1952207/31/1944008/01/19 0755 WBC 3.94 4.09 4.95 HB 6.8* 8.0* 8.2* HCT 19.9* 23.2* 23.8* PLT 27* 26* -- NEUTROPERC 66.4 -- -- LYMPHPERC 21.7 -- -- MONOPERC 8.5 -- -- BASOPERC 0.5 -- -- EOSPERC 2.7 -- -- Chemistries: Last 72 Hours (or 3 results): Recent Labs 07/30/1952207/31/1944008/01/19 0756 NA 131* 132* 129* K 4.3 4.3 [...] Henrique Chapa MD Gastroenterology & Hepatology Fellow Pager:[phone] IE/S: Awake and alert this morning, wishing [...] 50 mg elemental, oral, DAILY Give n: 07/31 851 PRN Medication Dose/Rate, Route, Frequency Last Action [...] EOSPERC 1.9 -- 2.7 -- Recent Labs 07/29/19 0507/30/19 0507/31/1944007/31/19 0837 07/31/19 1159 NA 134* -- 131* -- 132* [...] evidence of bleeding. HDS. - Continue home lepxreusevd7816 mg TID. - Zinc 50 mg PO [...] gy. - Nutrition following, appreciate recs. VitD 89806 U qweekly + multivitamin without iron st arted 07/31. 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 - NPH 22 U BID - Lispro 10 U TID WM - Mild SSI - informatics educator to see him as DM is new diagnosis as of this admission #Hyperthyroidism, mild - Unlikely to be driving tachycardia - Outpatient follow up Bowel Regimen: Lactulose Diet: Mechanical soft, diabeteic DVT PPx: none Monitoring: tele for SVT Sleep: Melatonin PRN Surrogate Decision Maker Primary Surrogate Decision Maker Doreen norwood [phone] Secondary Surrogate Decision Maker Priyanka Rivera mother Julian Sloandwight Internal Medicine PGY-1 Associated attestation - Rex [...] with the resident. I have reviewed the [facility] documentation and I agree with the findings, assessment, advice, orders and plan as th ey are documented with changes documented as above in my note. Rex So MD professor of environmental science, Division of hospital medicine, Internal Medicine, [facility] CenterAmy MD - 07/30/2019 8:47 PM PDTFormatting of this [...] hours (or 3 results) Recent Labs 07/28/19 2250 07/29/19 0537 07/30/19 0523 WBC 5.85 5.54 3.94 HB 8.5* 8.0* [...] for hbg of 6.8. - Continue home siejdgdmrys2284 mg TID. - Zinc 50 mg PO [...] U TID WM - Mild SSI - informatics educator to see him as DM is new diagnosis as of this admission #Hyperthyroidism, mild - Unlikely to be driving tachycardia - Outpatient follow up Bowel Regimen: Lactulose Diet: Mechanical soft, diabeteic DVT PPx: none Monitoring: tele for SVT Sleep: Melatonin PRN Surrogate Decision Maker Primary Surrogate Decision Maker Doreen norwood [phone] Secondary Surrogate Decision Maker Priyanka Rivera mother Amy Singh MD Internal Medicine PGY-2 Associated attestation - Des Gamez MD - 07/31/2019 10:31 AM PDTA resident trisha d with documenting this [...] transplant again and will have to p ursue DHT tomorrow to see if we can [...] MD Medical Teaching and Clinical Hospitalist Services [facility] Pager [phone] I spent 36 minutes taking care of [...] Henrique Chapa MD Gastroenterology & Hepatology Fellow Pager:[phone] IE/S: Feeling more alert this morning; denies [...] 30 g 30 g, oral, TID Given: 10/09 2132 metoprolol tartrate (LOPRESSOR) tablet 6.25 mg [...] moderately distended Labs: Recent Labs 07/28/19 2250 07/29/19 0507/30/19522 WBC 5.85 5.54 3.94 HB 8.5* 8.0* 6.8* HCT 24.5* 23.9* 19.9* PLT 31* 28* 27* NEUTROPERC 72.5* -- 66.4 LYMPHPERC 19.0 -- 21.7 MONOPERC 5.8 -- 8.5 BASOPERC 0.3 -- 0.5 EOSPERC 1.9 -- 2.7 Recent Labs 07/28/19 0338 07/29/19 0537 07/29/19 1825 07/29/19211307/30/19 05 NA 140 -- 134* -- -- -- [...] of cirrhosis, iron overload, frailty, malnutrition. Amaris Medina, JACOBY - 07/29/2019 2:27 PM PDTSocial Work Note: CODE ENFORCEMENT SUPERVISOR met with pt at bedside to check-in [...] and sister will be back this weekend. CODE ENFORCEMENT SUPERVISOR called his sister Doreen to check in and offer support. Doreen acknowledged it has been an emotional roller coaster with pt on the liver transplant list and then off. Doreen seemed to have a good understanding of the situation and is looking forward to hearing from the tea m tomorrow after the liver transplant committee meeting re: pt's transplant status. Doreen sh are she and their mother went and packed pt up and moved him out of his house. They are prep ared to either stay in [place] following transplant, or if pt is not a transplant candidate , they are hoping to move him to [place] to be close to family. Encouraged Doreen to reach out f or support as needed. CODE ENFORCEMENT SUPERVISOR will continue to follow. Please page with any psychosocial needs or concerns. WINIFRED Mckenzie, JACOBY Clinical Transplant Float Electric Frying Pan Repairer Pager: [phone] signed by Amaris Medina LCSW at 07/29/2019 [...] to mechanical soft diet and help of POLYSOMNOGRAPHIC TECHNICIAN feeding. Overall mental status possibly 2/2 underlying [...] to be successfully placed. Have ordered for POLYSOMNOGRAPHIC TECHNICIAN to help with feed ing. Mechanical soft diet for easier swallowing. Seems to be helping with amount of each farnaz l consumed. RADIATION MONITOR eval requested for today. - f/u RADIATION MONITOR recs # Spur cell anemia # Iron overload Goal hemoglobin of 7. UA with microscopic hematuria. No bloody stools or melena. R knee he marthrosis stable on exam. - Continue home lurouuuugvq9140 mg TID. - Zinc 50 mg PO daily. - Active type and screen. 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 - NPH 18 U BID - Lispro to 10 U TID WM - Mild SSI - informatics educator to see him as DM is new diagnosis as of this admission #Hyperthyroidism, mild - Unlikely to be driving tachycardia - Outpatient follow up Bowel Regimen: Lactulose Diet: Mechanical soft, diabeteic DVT PPx: none given hemolytic anemia Monitoring: tele for SVT Mobility: up with assist Sleep: Melatonin PRN Surrogate Decision Maker Primary Surrogate Decision Maker Doreen norwood [phone] Secondary Surrogate Decision Maker Priyanka Rivera mother Julian Feliciano MD Internal Medicine PGY1 Pager [phone] Associated attestation - Des Gamez MD - 07/29/2019 4:56 PM PDTA resident assiste d with documenting [...] able to feed himself this morning after nursi ng cut up his food.--will hold on further DHT attempts as it appears would likely require re straints to avoid him pulling it out. Has mild metabolic acidosis without appropriate respir atory compensation--may have component of bicarb loss in stool and urine anion gap suggestiv e of RTA. Given his cirrhosis, hesitant to provide a sodium bicarb load, but may need to con street sweeper operator this if he has further worsening in his acid base status. His urine has been appearing red for days, but without dramatically elevated RBCs on micro--so appears his coloration ma y be primarily due to pigment (dye from lactulose, combing with bili?). Danial Gamez MD Medical Teaching and Clinical Hospitalist Services [facility] Pager [phone] I spent 38 minutes taking care of [...] Henrique Chapa MD Gastroenterology & Hepatology Fellow Pager:[phone] IE/S: Does not have DHT; has been [...] knee ecchymosesimproved,b/l LE edema Labs: Recent Labs 07/28/1933707/28/19224907/29/19536 WBC 3.81 5.85 5.54 HB 7.5* 8.5* 8.0* HCT 21.7* 24.5* 23.9* PLT 24* 31* 28* NEUTROPERC -- 72.5* -- LYMPHPERC -- 19.0 -- MONOPERC -- 5.8 -- BASOPERC -- 0.3 -- EOSPERC -- 1.9 -- Recent Labs 07/27/19 03207/28/1933707/29/190 07/29/19 0507/29/19 09 NA 138 -- 140 -- -- 134* [...] corresponds to the date when I personautumn reddy saw this patient. I spent a total [...] and breakfast this morning with help from POLYSOMNOGRAPHIC TECHNICIAN for feeding. Denies any new conc erns [...] INR 3.84, otherwise stable - micro: BCx 10/ NGTD Imaging Interpretation: CXR 07/26 negative for signs of infection. Clinical Impression and Plan: a 54 y/o [...] to mechanical soft diet and help of POLYSOMNOGRAPHIC TECHNICIAN feeding. Overall mental status possibly 2/2 underlying [...] to be successfully placed. Have ordered for POLYSOMNOGRAPHIC TECHNICIAN to help with feed ing. Mechanical soft diet for easier swallowing. Seems to be helping with amount of each farnaz l consumed. RADIATION MONITOR eval requested for today. - f/u RADIATION MONITOR recs # Spur cell anemia # Iron overload Goal hemoglobin of 7. Transfused 1 U pRBC 07/27 with appropriate rise in Hgb 7.2. UA with 5 RBCs. No bloody stools or melena. R knee hemarthrosis stable on exam. - Continue home dkewthpqydv1969 mg TID. - Zinc 50 mg PO daily. - UA with 5 RBCs. On chart review, has multiple similar prior UAs. - Active type and screen. 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 - NPH 18 U BID - Lispro to 10 U TID WM - Mild SSI - informatics educator to see him as DM is new diagnosis as of this admission #Hyperthyroidism, mild - Unlikely to be driving tachycardia - Outpatient follow up Bowel Regimen: Lactulose Diet: Mechanical soft, diabeteic DVT PPx: none given hemolytic anemia Monitoring: tele for SVT Mobility: up with assist Sleep: Melatonin PRN Surrogate Decision Maker Primary Surrogate Decision Maker Doreen norwood [phone] Secondary Surrogate Decision Maker Priyanka Rivera mother Julian Feliciano MD Internal Medicine PGY1 Pager [phone] Associated attestation - Des Gamez MD - 07/28/2019 5:32 PM PDTA resident assiste d with documenting [...] MD Medical Teaching and Clinical Hospitalist Services [facility] Pager [phone] I spent 40 minutes taking care of [...] Chapa MD Gastroenterology & Hepatology Fellow Pager: [phone] IE/S: DHT placement attempted yesterday, but tube [...] Labs: Recent Labs 07/27/19 1434 07/27/19 1953 07/28/19337 WBC 3.51 4.29 3.81 HB 6.8* 7.8* 7.5* HCT 20.4* 23.2* 21.7* PLT 30* 32* 24* Recent Labs 07/26/19 0436 07/27/19 0329 07/27/19 1833 07/27/19212407/28/19 033 NA 138 -- 138 -- -- -- [...] from the heart point of view, though rafi eduardo says she'd never heard (until I told her) about the various factors that increase his risk for post-LT heart failure. I told her also that the EP moving consultant said that the tachyarrhyt hmia should not itself preclude transplant, but that this wasn't an endorsement of the overa ll perioperative cardiac risk for liver transplant, which is something determined by the [facility] transplant team. She understood, and says that [...] Chapa MD Gastroenterology & Hepatology Fellow Pager: [phone] IE/S: Oriented to person and place today; [...] PLT 40* 37* 40* Recent Labs 07/25/19 0525 07/26/19 0436 07/26/19 1755 07/26/19215107/27/19 032 NA 138 -- 138 -- -- -- [...] eat breakfast this morning with help from POLYSOMNOGRAPHIC TECHNICIAN w ho fed him. Denies pain, dizziness, SOB, fever, chills, n/v, or worsening pain in R knee. multiple attempts at placing DHT for tube [...] kg/m. Intake/Output Summary (Last 24 hours) at 07/26/2019900 Last data filed at 07/26/2019 0019 Gross [...] signs of infection. Clinical Impression and Plan: a 54 y/o [...] to mechanical soft diet and help of POLYSOMNOGRAPHIC TECHNICIAN feeding. Overall worsening mental status pos sibly [...] hemarthrosis stable on exam. - Continue home [id number] mg TID. - Zinc 50 mg PO [...] U TID WM - Mild SSI - informatics educator to see him as DM is new diagnosis as of this admission #Hyperthyroidism, mild - Unlikely to be driving tachycardia - Outpatient follow up Bowel Regimen: Per admission protocol Diet: diabetic, 2g sodium DVT PPx: none given hemolytic anemia Monitoring: tele for SVT Mobility: up with assist Sleep: Melatonin PRN Surrogate Decision Maker Primary Surrogate Decision Maker Doreen norwood [phone] Secondary Surrogate Decision Maker Priyanka Rivera mother Julian Feliciano MD Internal Medicine PGY1 Pager [phone] Associated attestation - Des Gamez MD - [...] spur cell anemia and transfusing again today. Dnaial Gamez MD Medical Teaching and Clinical Hospitalist Services [facility] Pager [phone] I spent 40 minutes taking care of [...] who agrees with above. Maryam Baldwin MD [facility] Transplant Hepatology Fellow IE/S: No new SVT [...] b/l LE edema Labs: Recent Labs 07/25/19 0507/25/19 1355 07/26/19 0436 WBC 4.44 5.47 5.12 [...] for anemia, thrombocytopenia, otherwise stable - UA 10/5 with 16 RBCs, negative for signs of [...] possibly bilious vs bloody - Continue home [id number] mg TID. - Zinc 50 mg PO [...] U TID WM - Mild SSI - informatics educator to see him as DM is new diagnosis as of this admission #Hyperthyroidism, mild - Unlikely to be driving tachycardia - Outpatient follow up Bowel Regimen: Per admission protocol Diet: diabetic, 2g sodium DVT PPx: none given hemolytic anemia Monitoring: tele for SVT Mobility: up with assist Pain: APAP PRN Sleep: Melatonin PRN Surrogate Decision Maker Primary Surrogate Decision Maker Doreen norwood [phone] Secondary Surrogate Decision Maker Priyanka Rivera mother Julian Feliciano MD Internal Medicine PGY1 Pager [phone] Associated attestation - Des Gamez MD - 07/26/2019 2:09 PM PDTA resident assiste d with documenting [...] MD Medical Teaching and Clinical Hospitalist Services [facility] Pager [phone] I spent 38 minutes taking care of [...] who agrees with above. Maryam Baldwin MD [facility] Transplant Hepatology Fellow IE/S: No new SVT [...] mg elemental, oral, DAILY Give n: 07/24 142 PRN Medication Dose/Rate, Route, Frequency Last Action [...] this note might be different from the [facility]. Gen Med 3 Service Progress Note 24 [...] due to being in room w/ delerious guillermo jaquez who did not allow him to get [...] only transfuse if symptomatic. - Continue home [id number] mg TID. - Zinc 50 mg PO daily. 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 CBG 10 PM last night low at 73, subsequently did not receive evening NPH dose. - Decrease to NPH 16 U BID from 20 U - Lispro 14 U TID WM - Medium SSI - informatics educator to see him as DM is new diagnosis as of this admission #Hyperthyroidism, mild - Unlikely to be driving tachycardia - Outpatient follow up Bowel Regimen: Per admission protocol Diet: diabetic, 2g sodium DVT PPx: none given hemolytic anemia Monitoring: tele for SVT Mobility: up with assist Pain: APAP PRN Sleep: Melatonin PRN Surrogate Decision Maker Primary Surrogate Decision Maker Doreen norwodo [phone] Secondary Surrogate Decision Maker Priyanka Rivera mother Julian Feliciano MD Internal Medicine PGY1 Pager [phone] Associated attestation - Des Gamez MD - [...] 30s. Given hypoglycemia to 70s overnight will dr op NPH dose. Has had hgb drop [...] MD Medical Teaching and Clinical Hospitalist Services [facility] Pager [phone] I spent 36 minutes taking care of [...] Henrique Chapa Gastroenterology & Hepatology Fellow Pager: [phone] IE/S: -Denies chest discomfort this morning. O: [...] ecchymoses with limited ROM Labs: Recent Labs 07/23/19 0611 07/23/19 1623 07/24/19 0604 WBC 6.19 7.91 7.03 HB 8.9* 9.4* 9.3* HCT 25.6* 26.9* 27.3* PLT 38* 48* 46* Recent Labs 07/21/19 0344 07/22/19 0529 07/23/1911 07/23/19 2332 07/24/19 0604 07/24/19 0733 NA 131* [...] Intake/Output Summary (Last 24 hours) at 07/24/19 07 Last data filed at 07/24/19 0600 Gross [...] only transfuse if symptomatic. - Continue home ajnkohcdwle5448 mg TID. Patient ran out today 07/22. [...] Maker Primary Surrogate Decision Maker Doreen norwood [phone] Secondary Surrogate Decision Maker Priyanka Rivera mother Julian Feliciano MD Internal Medicine PGY1 Pager [phone] Associated attestation - Des Gamez MD - 07/24/2019 5:32 PM PDTA resident assiste d with documenting [...] MD Medical Teaching and Clinical Hospitalist Services [facility] Pager [phone] I spent 37 minutes taking care of [...] all questions were answered. Maryam Baldwin MD [facility] Transplant Hepatology Fellow Electronically signed by Zahida Rodriguez MD,PhD at 9 2:35 PM Amaris Culver LCSW - 07/23/2019 11:29 AM PDTLiver Transplant Social Work Note: CODE ENFORCEMENT SUPERVISOR met with pt at bedside to check-in [...] Richelle are planning to arrive tomorrow from [place]. Pt denied any needs or concerns at this time. Encouraged him to reach out as needed. JACOBY w ill continue to follow. WINIFRED Mckenzie LCSW Clinical Transplant Float Electric Frying Pan Repairer Pager: [phone] signed by Amaris Medina LCSW at 07/23/2019 [...] Henrique Chapa Gastroenterology & Hepatology Fellow Pager: [phone] IE/S: [place] chest discomfort this morning, with HR monitor [...] Intake/Output Summary (Last 24 hours) at 07/23/2019 0759 Last data filed at 07/22/2019 1912 Gross [...] no new imaging Assessment and Plan Mr. 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 Rojas Joy Internal Medicine PGY-3 [id number] Antione Vital MD - 11/2018 10:56 AM [...] MICU resident and the team. See r esident note for details. Hospital day # 5. I spent 15 min in the care and management, not including procedural time, of this patient w ho is no longer critically ill. hoHenrique beach MD - 2018 7:49 AM PDT Hepatology [...] Henrique Chapa Gastroenterology & Hepatology Fellow Pager: [phone] IE/S: Mentating well. Having 4-5 BMs/day. O: [...] Recent Labs 07/17/19200507/18/19 0509 07/20/19 0524 07/21/19 0344 07/21/19 1610 07/21/198 07/22/19 0529 NA 134* -- 136 < [...] at 07/21/2019 3:44 AM Age: 54 years etersJovany MD - 07/22/2019 6:31 AM PDTFormatting of this note might be different from the martha ginal. [facility] MEDICAL ICU - PROGRESS NOTE Hospital Day: [...] R knee. Vital Signs: Cuff BP 107/62 (07/22/19799) | BP Min: 97/54 Max: 108/66 Cuff MAP 76 mmHg (07/22/19799) | BP Mean Min: 68 mmHg Max: 92 mmHg Art Line BP | No data recorded Art Line MAP | No data recorded HR 61 (07/22/19799) | Pulse Min: 47 Max: 68 | [...] at 07/17/19 181 Last data filed at 07/19/19 1300 Gross [...] Neuro: AAO x 3 Laboratories: Recent Labs 07/21/1934307/21/19 1643 07/22/19 0529 WBC 3.80 5.29 4.77 HB 7.4* 8.5* 8.0* HCT 21.3* 24.1* 22.9* MCV 101.4* 101.3* 100.9* PLT 25* 27* 28* NEUTROPHILCO 2.23 -- -- LYMPHSABS 1.08 -- -- MONOCYTECO 0.33 -- -- EOSCO 0.12 -- -- BASOPHILCO 0.02 -- -- IMGRANABS 0.02 -- -- Recent Labs 07/17/19195207/18/19 0509 07/21/19343 INRPT 3.40* 3.42* 4.71* APTT 58.2* 54.5* [...] Maker Primary Surrogate Decision Maker Doreen norwood [phone] Secondary Surrogate Decision Maker Pryianka Rivera mother This patient was staffed with Dr. Talbot, attending physician. Jovany Mckinley MD Internal Medicine, PGY 1 P: [phone] signed by Jovany Mckinley MD at 07/22/2019 11:11 AM PDTPeters, Jovany Gomez MD - 07/21/2019 11:36 AM PDT [facility] MEDICAL ICU - PROGRESS NOTE Hospital Day: [...] compla ints. Vital Signs: Cuff BP 102/68 (07/21/191099) | BP Min: 77/54 Max: 119/59 Cuff MAP 75 mmHg (07/21/191099) | BP Mean Min: 58 mmHg Max: 79 mmHg Art Line BP | No data recorded Art Line MAP | No data recorded HR 56 (07/21/191099) | Pulse Min: 52 Max: 90 | Cardiac Rhythm: Normal Sinus Rhythm (11/08) Temp 36.8 C (98.2 F) (07/21/19799) | Temp Min: 36.5 C (97.7 F) Max: 36.9 C (9 8.4 F) RR 13 (07/21/191099) | Resp Min: 12 Max: 21 SpO2 98 % (10/01/19 1100) | SpO2 Min: 96 % Max: [...] Maker Primary Surrogate Decision Maker Doreen norwood [phone] Secondary Surrogate Decision Maker Priyanka Rivera mother This patient was staffed with Dr. Talbot, attending physician. Jovany Mckinley MD Internal Medicine, PGY 1 P: [phone] signed by Jovany Mckinley MD at 07/21/2019 12:34 PM Antione Vital MD - 07/21/2019 7:08 AM PDT MICU [...] MICU resident and the team. See r esident note for details. Hospital day # 4. I spent 20 min in critical care. Henrique Krishna MD - 2018 6:33 AM PDT Hepatology [...] Henrique Chapa Gastroenterology & Hepatology Fellow Pager: [phone] IE/S: Eating breakfast this morning, mentating well. [...] 07/18/19 0858 07/20/19 1103 07/20/19 1530 07/21/19 0344 WBC 8.19 < > 4.35 4.35 3.80 [...] at 07/21/2019 3:44 AM Age: 54 years Lyla Handley MD - 07/20/2019 4:59 PM PDTBrief [...] opathy and dropping Hgb. Maryam Baldwin MD [facility] Transplant Hepatology Fellow 5:0 8 PM PDTSatya Teresa MD - 07/20/2019 12:05 PM PDTFormatting of this note might be diffe rent from the original. [facility] MEDICAL ICU - PROGRESS NOTE Hospital Day: [...] Recent Labs 07/17/19200107/18/19 0858 07/19/19 0013 07/19/19 13507/19/19202107/20/19 0524 NA -- < > 136 137 [...] not displayed. Recent Labs 07/19/19 1356 07/19/19 17507/19/19 1858 07/19/19202107/19/19 2133 07/20/19 0524 07/20/19 1007 07/20/19 1009 [...] Maker Primary Surrogate Decision Maker Doreen norwood [phone] Secondary Surrogate Decision Maker Priyanka Rivera mother This patient was staffed with Dr. Talbot, attending physician. Satya Teresa MD Internal Medicine Resident Antione Vital MD - 07/20/2019 11:49 AM PDT MICU [...] MICU resident and the team. See r esident note for details. Hospital day # 3. [...] e/o infection/sepsis as etiology of SVT/afib. Ho shant, given his interval exam, we would recommend [...] Dr. Michael Chapa Gastroenterology and Hepatology Fellow [id number] IE/S: Had SVT overnight requiring amiodarone GTT [...] ecchymoses with limited ROM Labs: Recent Labs 07/17/19195207/18/1950807/18/1985707/19/19 0552 07/19/19135507/20/19 05 WBC 6.47 7.11 8.19 < > 7.00 [...] this interval not displayed. Recent Labs 04/24/1942007/16/19 07/17/19200507/18/1950807/19/19 13507/19/19202107/19/19213207/20/19 05 NA 131* < > 128* -- 134* [...] the critical care team and personally reviewed Dogu Lawson's a vailable data, including medical history, [...] BMI 25.1 kg/(m^2). Facility age limit for [facility] percentiles is 18 years. Body mass index [...] Continue iron chelation Josue Montano MD, MA, [facility] [employer] Tr[employer] Division of Pulmonary & Critical Care Medicine Pager: [phone] Critical Care Time: I spent 8 minutes [...] might be different from the origin al. [facility] MEDICAL ICU - PROGRESS NOTE Hospital Day: [...] MAP | No data recorded HR 76 (07/19/191099) | Pulse Min: 62 Max: 90 | [...] Maker Primary Surrogate Decision Maker Doreen norwood [phone] Secondary Surrogate Decision Maker Priyanka Rivera mother This patient was staffed with Dr. Rice, attending physician. Jovany Mckinley MD 07/19/2019, 1:39 PM Template created by BJ[employer]umn 2017 hriss Rice MD - 07/19/2019 11:19 AM PDTMICU Attending [...] Link MD, MS Gastroenterology Fellow, PGY-4 Pager [phone] pager [phone]) INTERVAL EVENTS/SUBJECTIVE - continues on abx - [...] Recent Labs 07/17/19195207/18/19 0509 07/18/19 0858 07/18/19 18007/19/19 0001 07/19/19 0552 WBC 6.47 7.11 8.19 [...] this interval not displayed. Recent Labs 07/17/19200107/18/19 0509 07/18/19 0858 07/19/19 [...] with AMS/new on set hyperglycemia/falls/renal insufficiency from [facility]. Course here c/b hypotension/SVT/Afib- transferred to MICU/started [...] ent's active medical problems. Vimal Crowe MD Trimmer Helper, [facility] Division of Gastroenterology/Hepatology Josue Montano MD - [...] hepatology following Insulin brice Montano MD, MA, [facility] [employer] Division of Pulmonary & Critical Care Medicine Pager: [phone] Critical Care Time: I spent 12 minutes [...] peripherally Kita Damon MD, AGNIESZKA Orthopaedic Surgery [id number] Vimal Phillips MD - 07/18/2019 11:44 AM PDTHEPATOLOGY ATTENDING Mr. Lawson is a 54 YO man alcoholic cirrhosisc/b ascites/leg edema, spur cell anemia, seco ndary iron overload listed for LT with MELD Na of 32 today who is transferred with AMS/new o nset hyperglycemia/falls/renal insufficiency from [facility]. Work-up there so fa r: CTOH neg, [...] cards and ortho's help. Vimal Crowe MD Trimmer Helper, [facility] Division of Gastroenterology/HepatologyElectronically signed by Vimal Crowe MD at 1 10/21/2018 2:59 PM Kita Philip MD, AGNIESZKA - 07/18/2019 9:51 AM PDT Orthopaedic Surgery Progress Note Patient: /Age: MRN: CSN: Date: Admission Date: Hospital Day: Orthopaedic Attending: Doug Lawson 1965 54 y.o. [id number] 07/18/2019 07/17/2019 [address] [place] [...] CAR MARIBELL FACULTY Cardiology Cardiac Transplant at [facility] [phone] [facility] ology 08/04/2019 11:20 AM Vimal Crowe Liver Transplant at [facility] 2nd Floor [phone] GASTROEN TERO Subjective: -- reports R knee [...] R knee ecchymosis: Kita Damon MD, AGNIESZKA [facility] Department of Orthopaedics & Rehabilitation [address] [place] [address] Mail Code: OP31 [facility] [address] JOINT ASPIRATION Pre procedure diagnosis: R knee [...] Damon MD, AGNIESZKA Orthopaedic Surgery resident, PGY2 [id number] Chriss Burk MD - 07/18/2019 8:18 AM PDTMICU Attending Addendum I performed a history and physical examination of the patient and discussed her management with the resident. I reviewed the resident s note and agree with the documented findings and plan of care. DX; Cirhosis, etoh abuse, SVT MAPs 60, GD=528e CR=1.23 Bedside USG consistent with hypovolumeia Exam=Jaundice [...] Hgb 10.1 with tear drop cells and Tamara cells o n smear, WBC 7.1, platelet [...] anion gap on labs repeated here at [facility], UA without ketones. Beta-hydro xybyterate as BUN [...] knee infected) - f/u blood cultures at [facility] as well as from outside hospital - [...] screen ordered, will need to call patient's SDM Doreen to obtain transfusion cons ent, he is not consentable currently - telemetry - holding home diuretics - restarting home metoprolol succinate given patient's hx of SVT and episode overnight, con street sweeper operator EP Cards consult Code Status: Full Code for now (will need to discuss code status with patient's SDM Doreen zamora) Surrogate Decision Maker Documentation: Surrogate Decision Maker Primary Surrogate Decision Maker Doreen norwood [phone] Secondary Surrogate Decision Maker Priyanka Rivera mother This patient will be staffed with attending physician, Dr. Jackson within 24 hours. Please re concepción to excellent environmental engineering intern H&P for full problem based plan. Nata Montanez DO Internal Medicine, PGY-2 Pager: [phone] Vimal Phillips MD - 0 07/17/2019 7:19 PM PDTBrief Hepatology Attending Note Mr. Lawson is a 54 YO man alcoholic cirrhosis c/b ascites/leg edema, spur cell anemia, secon vee iron overload listed for LT with MELD Na of 34 who is transferred with AMS/new onset hy perglycemia/falls/renal insufficiency from [facility]. Work-up there so far: CTOH neg, blood [...] documented in this enc ounter H&P Notes Farzana Eldridge MD,MPH - 08/15/2019 3:50 PM PDTFormatting of this note might be differen t from the original. DEPARTMENT OF SURGERY Transplant Surgery History and Physical Patient: Doug Lawson ([id number]) Date: 08/15/2019 Chief Complaint: Potential liver transplant [...] file Gets together: Not on file Attends synagogue service: Not on file Active member of [...] in this interval not displayed. Recent Labs 08/14/19 0547 08/15/1945308/15/19 1503 AST 91* 93* 99* ALT 57 53 55 TBILI 11.7* 11.0* 11.5* AP 211* 222* 250* ALB 3.0* 2.8* 3.0* TP 6.5 6.2* 6.7 Recent Labs 08/15/19 1503 AMYLASEPLAS 34 Recent Labs 08/14/19 0547 08/15/194 08/15/19 1504 WBC 4.37 4.69 5.67 HB 7.1* 6.7* 6.8* HCT 22.0* 21.0* 21.1* PLT 60* 59* 60* NEUTROPERC -- -- 73.0* LYMPHPERC -- -- 14.3* MONOPERC -- -- 10.2* BASOPERC -- -- 0.4 EOSPERC -- -- 1.6 Recent Labs 08/13/19 0441 08/14/19 0547 08/15/194 08/15/19 1502 INRPT 3.59* 3.52* 3.46* 3.24* APTT [...] He will possibly go to the [place] [facility] for a liver transplant if the donor [...] Sushila Eldridge MD,MPH Abdominal Transplant Surgery Pager: [phone] Associated attestation - Marsha Garcia MD - 08/17/2019 3:03 PM PDTPlease see my full no te regarding risk/benefit discussion I saw and evaluated the patient. I agree with the findings and the plan of care as docchristine machado in the resident s note. MARSHA GARCIA MD [address] [place] [address] Julian Feliciano MD - 07/22/2019 1:16 PM [...] liver transplant who wa s transferred from [facility] with AMS and new onset hyperglycemia, trauma [...] driving tachycardia - Outpatient follow up Julian Zikim Farrukh Associated attestation - Donell Cr MD [...] HE awaiting liver transplant, admitted initially to O with transfer to the [facility] MICU 07/17 after p/w acute encephalopathy, KAR [...] gen med team documentation. DONELL CR MD [id number] I spent 105 minutes in the care of this patient, > 55% of which was face to face counseling the patient regarding the plan for his stay and in care coordination on the ibarra with the n ursing team; 35 minutes of this was in critical care time of which 100% was face to face mon itoring hemodynamic response to emergent treatments (modified valsalva, IV metoprolol) for l amber-threatening SVT. Jovany Mckinley MD - 07/18/2019 7:04 AM PDT [facility] MEDICAL ICU - HISTORY & PHYSICAL Author: [...] with MELD 34 who was transferred from [facility] with AMS and new onset hyperglycemia, trauma [...] Vital Signs: Cuff BP (!) 87/50 (07/18/19 131) | BP Min: 70/47 Max: 113/61 Cuff MAP 61 mmHg (07/18/19 131) | BP Mean Min: 47 mmHg Max: 84 mmHg Art Line BP | No data recorded Art Line MAP | No data recorded HR 72 (07/18/191314) | Pulse Min: 30 Max: 192 | Cardiac Rhythm: Irregular;Atrial Fibrill iation;PACs;Multifocal;Atrial (07/18/19 0800) Temp 36.7 C (98.1 F) (07/18/19 1200) | Temp Min: 36.4 C (97.5 F) Max: 36.9 C (9 8.4 F) RR 19 (07/18/19 1315) | Resp Min: 13 Max: 21 SpO2 98 % (07/18/19 131) | SpO2 Min: 94 % Max: 100 [...] at 07/17/19 1813 Last data filed at 07/18/19 0607 Gross [...] clavicle at 10 degrees Laboratories: Recent Labs 07/17/19231607/18/19 0731 VBGPH 7.37 7.37 VBGPCO2 56* 54* VBGHCO3 32* 30* Recent Labs 07/17/19195207/18/1950807/18/19 0858 WBC 6.47 7.11 8.19 HB 8.8* 9.2* 7.8* HCT 25.0* 25.7* 21.9* MCV 102.0* 102.8* 103.8* PLT 33* 35* 34* NEUTROPHILCO 4.85 5.44 6.54 LYMPHSABS 0.96* 0.92* 0.77* MONOCYTECO 0.50 0.61 0.58 EOSCO 0.11 0.08 0.13 BASOPHILCO 0.02 0.03 0.03 IMGRANABS 0.03 0.03 0.14* Recent Labs 07/16/19 07/17/19195207/18/19 050 INRPT 2.0* 3.40* 3.42* APTT -- 58.2* 54.5* FIBRINOGEN -- 153 148* Recent Labs 07/17/19200107/17/19200507/18/1950807/18/19 0858 NA -- 134* [...] following; appreciate recommendations - F/u OSH and [place] blood cultures #Hyperthyroidism He does not have [...] Maker Primary Surrogate Decision Maker Doreen norwood [phone] Secondary Surrogate Decision Maker Priyanka alcala This patient was staffed with Dr. Rice, attending physician. Jovany Mckinley MD Internal Medicine, PGY 1 [facility] 07/18/2019, 7:05 AM Template created by JOCELIN 2017 Rojas Marie MD - 07/17/2019 9:17 PM PDT Internal Medicine History and Physical Attending Physician: Porsche Gipson MD Chief Complaint: Hepatic encephalopathy HPI: Donell Lawson is a 54-year-old man with a history of alcoholic cirrhosis complicated by ascites , leg edema, spur cell adenoma, and secondary iron overload listed for liver transplant with MELD-Na of 34 who was transferred from [facility] with altered mental status an d new [...] (this is unlikely given he was [facility] Course: - Lactulose given, CT head w/o abnormality, 1L NS, Insulin Regular 30U SC - CBG 584, Na 131, Cr 1.85, NUB 53, ammonia 78 - Hgb 10.1 w/smear showing tear drop and [place] cells - WBC 7.1, platelets 42, TBili [...] MELD-Na of 34 who was transferred from [facility] with altered mental status and new onset [...] Hepatology following - F/u blood cultures from [facility] and OSH # Paroxysmal Supraventricular Tachycardia # [...] MD, MPH Department of Medicine, PGY-1 Pager: [phone] documented in this enco unter Procedure Notes [...] Operators: Resident and Fellow Fellow name: Broderick Squiresbrian Resident name: Silvia Cid Anesthesia: Local anesthetic: Lidocaine 1% w/o epinephrine Anesthetic total (ml): 10 Sedation/Analgesia: Patient sedated?: No Procedure details: Insertion side: Right Insertion site: Internal Jugular vein Insertion site statement: With catheter tip targeted in SVC, see CXR report for confirma tion Vein social services technician technique: Ultrasound Guidance Techique: The modified Seldinger technique (a jnfihpdo-wgle-wxe-modnvt-gcmg-fnmc-through -the-catheter) was used for vessel cannulation Confirmed [...] in Dr. Cid's note. UNA BAZAN MD surveillance sensor officer Chief, Abdominal Organ Transplantation - Hepatobiliary Surgery [address] [place] [phone] Olena Rosen - 08/17/2019 4:36 PM PDTAssociated Order(s): PROCEDURE NOTECellular Therap y Laboratory - UNOS Vessels Cell Processing Name: Doug Lawson Allogeneic Donor Specimen Type: Vessel Receipt, Storage and Monitoring: One cup of extra vessels with UNOS [id number] for Doug Lawson is received by la in a bag with a UNOS tag. [...] days per week using the [facility] Aer[employer] Alarm Monitoring System and all Cellular [...] 12 units dinner Establish with PCP vs aws developer for buttermaker diabetes management Peg Grace MD Endocrinology Fellow Pager [phone] I have staffed the patient with attending aws developer Dr. Will Rosario who agrees with e [...] mg, oral, Once per day on Sat Sat Objective: Last Vitals: BP 140/72 | [...] 240 (H) 08/28/2019 Recent Labs 08/27/19 0557 08/28/19 0536 08/29/19 0601 AST 14 7 9 ALT 40 33 32 TBILI 1.1 1.1 1.0 AP 47* 41* 46* ALB 3.8 3.7 3.8 TP 6.1* 5.8* 6.1* Recent Labs 08/27/19 0557 08/28/19 0536 08/29/19 0601 08/29/19 0727 08/29/19 1447 GLU 245* < > 240* < [...] paperwork to finalize dialysis chair according to avel correa Primary team says discharge planned for [...] 2 units for correctio, 18 units of AESTHETICS INSTRUCTOR H Subjective: Mr. Lawson is feeling well [...] oral, Once pe r day on Sat Sat valGANciclovir (VALCYTE) tablet 450 mg, 450 [...] 72 hours (or 3 results) Recent Labs 08/26/1912 08/27/1957 08/28/19 0536 WBC 4.58 4.52 5.11 HB 8.1* 7.8* 7.6* HCT 25.0* 23.7* 23.0* PLT 82* 94* 110* NEUTROPERC 69.0 73.5* 74.9* LYMPHPERC 19.4 18.4 17.4* MONOPERC 7.2 5.1 4.7 BASOPERC 0.4 0.4 0.6 EOSPERC 3.1* 2.2 1.8 Chemistries: Last 72 Hours (or 3 results): Recent Labs 08/26/19 0612 08/27/19 0557 08/28/19 0536 08/28/19 0745 08/28/19 1317 NA 136 -- 135* -- [...] 72 hours (or 3 results) Recent Labs 08/26/1912 08/27/1957 08/28/19 0536 AST 9 14 7 ALT [...] continue to follow. Aston Rosado Medical Student [facility] I have staffed the patient with consult attending Dr. Shukla who agrees with the assessment a nd recommendations as detailed above. Note written by IWONA Rosado. Patient was seen and examined by me, and plan of care was develo ped with the remainder of the endocrinology inpatient team. Peg Grace MD Endocrinology Fellow Pager [phone] Associated attestation - Johanna Shukla MD - 09/01/2019 10:34 AM PST I personally intervi ewed the patient, performed the pertinent parts of the physical examination and personally f ormulated the plan with Dr. Grace, endocrine fellow. I agree with the fellow's documentat ion and have documented any additions or exceptions. Johanna Shukla MD, MS Trimmer Helper Division of Endocrinology, Diabetes and Clinical Nutrition Department of Internal Medicine [facility] [address] [place] [address] Peg Grace MD - 08/27/2019 4:52 PM PSTFormatting of this note might be different fr om the original. Endocrinology Consult Service Progress Note Hospital Day:41 Interval events: BG to 199 at 1035pm, 186 at 7:15 am Found dialysis chair near where he lives. Discharge planned for today No dialysis planned for today Spoke with visual educator this morning about use of insulin [...] 72 hours (or 3 results) Recent Labs 08/25/19 0632 08/26/19 0612 08/27/19 0557 WBC 5.47 4.58 4.52 HB 8.2* 8.1* 7.8* HCT 24.5* 25.0* 23.7* PLT 67* 82* 94* NEUTROPERC 76.1* 69.0 73.5* LYMPHPERC 14.1* 19.4 18.4 MONOPERC 6.0 7.2 5.1 BASOPERC 0.2 0.4 0.4 EOSPERC 2.9 3.1* 2.2 Chemistries: Last 72 Hours (or 3 results): Recent Labs 08/25/19 0632 08/26/19 0612 08/27/19 0557 08/27/19 0715 08/27/19 1324 NA 136 -- 136 -- [...] 72 hours (or 3 results) Recent Labs 08/25/19 0632 08/26/1912 08/27/19 0557 AST 9 9 14 ALT 40 37 [...] continue to follow. Aston Rosado Medical Student [facility] I have staffed the patient with consult attending Dr. Shukla who agrees with the assessment a nd recommendations as detailed above. Note written by IWONA Rosado. Patient was seen and examined by me, and plan of care was develo ped with the remainder of the endocrinology inpatient team. Peg Grace MD Endocrinology Fellow Pager [phone] Associated attestation - Johanna Shukla MD - 09/01/2019 10:33 AM PSTI personally interviewe d the patient, performed the pertinent parts of the physical examination and personally form ulated the plan with Dr. Grace, endocrine fellow. I agree with the fellow's documentation and have documented any additions or exceptions. Johanna Shukla MD, MS Trimmer Helper Division of Endocrinology, Diabetes and Clinical Nutrition Department of Internal Medicine [facility] [address] [place] [address] Lakshmi Chatterjee RN - 08/27/2019 10:42 AM PSTDiabetes Education Follow-up [...] Inpatient Diabetes Education & Support Services Pager: [phone] itedAston - 019 5:31 PM PST Endocrinology Consult [...] 72 Hours (or 3 results): Recent Labs 08/24/1955108/25/19 0632 08/26/19 0612 08/26/19 0742 08/26/19 1202 NA [...] continue to follow. Aston Rosado Medical Student [facility] I have staffed the patient with consult attending Dr. Shukla who agrees with the assessment a nd recommendations as detailed above. Electronically signed by Peg Grace MD at 2018 9:19 PM Maykel RUDD, Jessica - 08/25/2019 1:52 PM PST Endocrinology Consult [...] 72 hours (or 3 results) Recent Labs 08/23/1953508/24/1955108/24/19232208/25/19 0632 WBC 5.03 4.47 5.54 5.47 HB 8.5* 8.8* 8.3* 8.2* HCT 26.0* 27.0* 24.7* 24.5* PLT 47* 55* 60* 67* NEUTROPERC 76.7* 75.9* -- 76.1* LYMPHPERC 12.9* 13.4* -- 14.1* MONOPERC 7.0 6.3 -- 6.0 BASOPERC 0.2 0.2 -- 0.2 EOSPERC 2.4 2.9 -- 2.9 Chemistries: Last 72 Hours (or 3 results): Recent Labs 08/23/1953508/24/1955108/24/19213208/25/19 0632 08/25/19 0737 NA 137 -- 137 -- [...] 72 hours (or 3 results) Recent Labs 08/23/1953508/24/1955108/25/19 0632 AST 11 11 9 ALT 44 [...] is inadequate. However, after talking with the golf cart mechanic it sounds like larger meals may not [...] consult team will continue to follow. Aston [facility] Medical Student [facility] I have staffed the patient with consult [...] additions or exceptions. Johanna Shukla MD, MS Trimmer Helper Division of Endocrinology, Diabetes and Clinical Nutrition Department of Internal Medicine [facility] [place] [address] Benja Sampson PA - 08/25/2019 11:36 AM PSTAssociated Order(s): IP CONSULT TO INTERVENTI ONAL RADIOLOGY Interventional Radiology Consult Note INTERVENTIONAL RADIOLOGY CONSULTATION Consult Date of Service: 08/25/2019 Requesting Provider: Marsha Garcia MD Interventional Radiology Attending: Kris Metz MD [...] 1 tablet 1 tablet, oral, Q - Given: 08/24 828 valGANciclovir (VALCYTE) tablet [...] g 16 g, oral, PRN Given: 08/22 100 heparin 1,000 unit/mL injection 1-3 mL 1-3 [...] 0659 08/25/19 0700 - 08/26/19 0659 Shift 9244-1495 0008-5198 24 Hour Total 3521-2287 6299-8811 4934-9862 24 Hour Total INTAKE P.O. 2060 2700 Shift Total 2060 2700 OUTPUT Urine(mL/kg/hr) 500(0.6) 300(0.4) 800(0.3) Shift Total(mL/kg) [...] O2 Delivery Device: None (room air) (08/24/19 0337) Last Vitals: BP 160/80 (BP Location: Right [...] for now. May need to consider decreasing AESTHETICS INSTRUCTOR H in future now that he is [...] continue to follow. Aston Rosado Medical Student [facility] I have staffed the patient with consult attending Dr. Shukla who agrees with the assessment a nd recommendations as detailed above. Ignacio Elliott P harmD - 08/24/2019 7:55 AM PST [...] list. - Insurance issues: none Pharmacy Preferences: [facility] [address] [place] [address] Hours: 8am-9pm Mon-fri; 9-5:30pm Sat-sun E-Prescribing: Yes E-Prescribing Control Substances: Yes [facility] [id number] [place] [address] Hours: 9am-7pm Mon-fri / 9am-6pm Sat / Closed Sun E-Prescribing: Yes E-Prescribing Control Substances: Yes [address] [facility] [address] [place] [address] Hours: 8am-6pm Mon-sat E-Prescribing: Yes E-Prescribing Control Substances: Yes [facility] [address], [place] [address] Hours: 8am-430pm Sat-saturday/closed Sat&sun E-Prescribing: Yes E-Prescribing Control Substances: Yes If there are any questions, please contact Ignacio Inman PharmD at pager # [phone]. Thank you, Ignacio Inman PharmD Pager [phone] Kenneth Sifuentes MD - 08/23/2019 10:36 AM [...] BMI 31.95 kg/m | BSA 2.28 m Curr t FIO2 (%): 21 fraction of O2 [...] the effect of his oral prednisone. Mr. aLwson was able to address low BG yesterday [...] continue to follow. Aston Rosado Medical Student [facility] The above was edited to reflect my assessment and plan. Kenneth Dotson MD Endocrinology Fellow Pager: [phone] 08/23/2019 12:17 PM I have staffed the [...] otherwise noted. Pramod Black MD Pager # [phone] History of present illness: Reason for consult: [...] file Gets together: Not on file Attends synagogue service: Not on file Active member of [...] 0 g, 0 mL/hr, IV, Q8H Stopped: 1101 amiodarone (CORDARONE) tablet 200 mg 200 mg, oral, DAILY Given: 08/22 814 aspirin tablet 325 mg 325 mg, oral, DAILY Given: 08/22 945 dextrose 50 % in water injection No [...] 4 mg, oral, BID ( and ) Ordered tamsulosin (FLOMAX) capsule 0.4 mg 0.4 mg, oral, DAILY Given: 08/22 814 trimethoprim-sulfamethoxazole (BACTRIM, SEPTRA) 80-400 mg 1 tablet 1 tablet, oral, Q - Given: 08/21 904 valGANciclovir (VALCYTE) tablet 450 mg 450 mg, oral, DAILY Given: 08/22 945 PRN Medication Dose/Rate, Route, Frequency Last Action [...] were personal ly reviewed. Recent Labs 08/20/19 0608/21/19 0658 08/22/19 0539 WBC 5.97 10. 6.54 [...] for: PTH Lab Results Component Value Date [id number] 19.9 04/21/2019 Lab Results Component Value Date [...] 72 Hours (or 3 results): Recent Labs 08/20/1960808/21/1958 08/22/19 0539 08/22/19 0918 08/22/19 0937 NA [...] 72 hours (or 3 results) Recent Labs 08/20/1960808/21/1965708/22/19 0539 AST 18 15 13 ALT 101* [...] consult team will continue to follow. Aston [facility] Medical Student [facility] The above was edited to reflect my assessment and plan. Kenneth Dotson MD Endocrinology Fellow Pager: [phone] 08/22/2019 12:08 PM I have staffed the patient with consult attending Dr. Shukla who agrees with the assessment a nd recommendations as detailed above. Chasidy Welch MD - 08/21/2019 9:56 AM PDT Endocrinology Follow Up Consult Note Reason for consult: steroid-induced hyperglycemia Consult Attending: Dr. Will Rosario Primary Money Room Teller: none Requesting Attending: Marsha Garcia MD Assessment: [...] regular meals, favor scheduling mealtime lispro, as b elharriet. *Update from Primary Team: Calorie count felt [...] Chasidy Navarrete MD Internal Medicine PGY-3 Pager: [phone] This patient's assessment and plan was discussed [...] in the last 8640 hours. Recent Labs 08/19/1962308/20/1909 08/21/19 0658 AST 23 18 15 ALT 122* 101* 82* TBILI 1.5* 1.5* 1.6* AP 33* 39* 44* ALB 3.5 3.8 4.5 TP 5.4* 6.1* 6.9 Recent Labs 08/19/19 0624 08/20/19 0609 08/20/194 08/21/1958 08/21/19 0737 GLU 140* < > 160* [...] hyperglycemia Consult Attending: Dr. Will Rosario Primary Money Room Teller: none Requesting Attending: Marsha Garcia MD Assessment: [...] q8h NPH, this would be 45 units AESTHETICS INSTRUCTOR H. Conservatively, we favor starting at 26 [...] Chasidy Navarrete MD Internal Medicine PGY-3 Pager: [phone] This patient's assessment and plan was discussed [...] in the last 8640 hours. Recent Labs 08/18/19 0614 08/19/19 0624 08/20/19 0609 AST 40 23 18 ALT [...] hyperglycemia Consult Attending: Dr. Will Rosario Primary Money Room Teller: none Requesting Attending: Marsha Garcia MD Assessment: [...] Chasidy Navarrete MD Internal Medicine PGY-3 Pager: [phone] This patient's assessment and plan was discussed with consult attending Dr. Will Rosario who agrees with above assessment and recommendations. Interval Events: Continuing on insulin drip CBGs 120s up to 180s, last 170s Continuing on Tube Feeds: Rates 20ml/hr yesterday, up to 50ml/hr now Planning to increase to goal of 70 mL/hr x 24 hr/day per Line Locator recs Continuing regular diet Methylprednisolone: 500mg 08/16 [...] capsule 5 mg, 5 mg, oral, BID () tamsulosin (FLOMAX) capsule [...] 3.5 TP 5.2* 5.5* 5.4* Recent Labs 08/17/191608/18/19 0614 08/19/19 0624 08/19/19 1207 08/19/19 1251 [...] 1.33 04/21/2019 [ Reviewed ] Iram Culver, JACOBY - 08/18/2019 12:21 PM PDTPost- Transplant Social Work Inpatient Visit Purpose of Visit: CODE ENFORCEMENT SUPERVISOR met with pt at his bedside to [...] sure that would be the safest plan. W felicia agreed to call his mother to further clarify his post-transplant support plan. We revi ewed the side effects of prednisone, including changes in mood, irritability and tearfulness . He understands that they should subside over time and that he can reach out for support as needed. Post-Hospital Support Plan: Slate Splitter called pt's mother Priyanka ([phone]) to discuss pt's post-discharge plan. Pt's si shree Doreen is his identified primary support. Priyanka clarified Doreen did not have surgery, bu t had an injection in her back for nerve pain. She is scheduled to have another injection on August 24 and then will come out to [place]. His mother is his identified secondary sup port and is planning to drive out from [place]. She is planning to leave or Saturday to arrive in [place] on Saturday. She states the weather is suppose to warm up and she is hoping the snow will melt. Slate Splitter shared pt is anticipated to be ready for discharge as early as . Priyanka said she was told pt would be in the hospital for 7-10 days on Saturday evening a nd she has made plans accordingly. Priyanka shared they have rented a house to stay in near [facility] and will get the keys on Saturday. Priyanka would greatly appreciate if pt could stay in hospital until Saturday morning. Pt does have an aunt and uncle in [place], however she is n ot sure they would be able to meet his care needs, as they are in their early 80's. Lorelei autumn guerrero Doreen will alternate staying with pt during the first three months post-discharge. JACOBY discussed discharge plan with post-design engineering technician, who discussed with surgeon team. She will [...] that he will have over the first ree months after discharge. He feels well supported with his support system and is appreciat prudence of the guidance being provided by the transplant team. Discharge Plan: Pt will likely discharge on August 24. Additional Concerns/Needs: None at this time. Conclusion & Follow-Up Plan: CODE ENFORCEMENT SUPERVISOR will continue to follow. Please page with any psychosocial needs or concerns. Amaris Medina LCSW Clinical Transplant Float Electric Frying Pan Repairer Pg # [phone] signed by Amaris Medina LCSW at 08/18/2019 1:08 PM PDTFergus on, MD Chasidy - 08/18/2019 9:48 AM PDTFormatting of this note might be different from t nicolasa original. Endocrinology Follow Up Consult Note Reason for consult: steroid-induced hyperglycemia Consult Attending: Dr. Will Rosario Primary Money Room Teller: none Requesting Attending: Marsha Garcia MD Assessment: [...] Chasidy Navarrete MD Internal Medicine PGY-3 Pager: [phone] This patient's assessment and plan was discussed [...] of 70 mL/hr x 24 hr/day per Line Locator recs. Note: Will provide 1680 mL, 2530 kcals, 158 gm protein, 235 gm carbs, 1294 mL useable fluid Transitioned from clear liquid to regular diet this morning Methylprednisolone: 500mg 08/16 with transplant, 250mg 08/17, 125mg 08/18 Subjective: Feels well this morning. Expresses a great deal of gratitude for his entire team and their teamwork together at [facility]. "This has been quite a ride..." he reflects, and becomes tearful saying how glad he is to have a second chance at live. "I've learned from the first one." Symptomatically, feels much improved since his surgery 08/16, without abdominal pain at res t, nausea. Has been passing gas and is trying a regular diet this morning. He laughs when h e tells me how he nearly choked on [...] 3.3* TP 5.1* 5.2* 5.5* Recent Labs 08/16/19205108/17/191608/18/1914 08/18/19 0710 08/18/19 0840 GLU 161* < [...] hyperglycemia Consult Attending: Dr. Will Rosario Primary Money Room Teller: none Requesting Attending: Marsha Garcia MD Brief [...] file Gets together: Not on file Attends synagogue service: Not on file Active member of [...] % Intake/Output Summary (Last 24 hours) at 08/17/20191918 Last data filed at 08/17/2019 1900 Gross [...] the last 8640 hours. Recent Labs 08/16/19 1648 08/16/19205108/17/19 0017 AST 345* 253* 186* ALT 465* 398* 346* TBILI 2.6* 2.3* 2.2* AP 56 53 46* ALB 2.6* 2.6* 2.8* TP 5.1* 5.1* 5.2* Recent Labs 08/16/19 1648 08/16/192 08/17/19 0017 08/17/19 1654 08/17/19 1759 08/17/19 1835 [...] while admit jeannette. Kenneth Dotson MD Pager [phone] Endocrinology Fellow This patient's assessment and plan was discussed with consult attending Dr. Will Rosario who agrees with above assessment and recommendations. Associated attestation - Erich Rosario MD - 10/04/2019 11:00 PM PSTFormatting of this note m ight be different from the original. ENDOCRINOLOGY INPATIENT CONSULT SERVICE - Initial Consultation Attending Hilary - Abraham I was asked by Dr. Garcia to see Doug Lawson because of steroid-induced hypergly cemia. I have participated in tamez aspects of the review of records, patient interview and e xamination, counseling, and formulation of the evaluation and treatment plan. I agree with documentation by Dr. Dotson. Please see his consultation note for full [...] Liver transplant status (HCC) Stephy Rosario M.D. manager room Division of Endocrinology, Diabetes and Clinical Nutrition and [facility] Cardiovascular [place] Haylee Zunilda L, [facility] - 08/16/2019 4:46 AM PDT Trauma [...] initially presented to for this admission to [facility] on transfer from [facility] with decompensated cirrhosis [...] file Gets together: Not on file Attends synagogue service: Not on file Active member of [...] assess Labs: Pertinent labs were reviewed in [facility]. Imaging: Pertinent imaging was reviewed in [facility]. Physical Exam: BP 99/61 (BP Location: [...] overload: ? Hematology involved ? Continue home [id number] mg TID when directed by Tx Acute [...] Cordis, CVC, Art line, DHT, NG, YA, PERCY Payton D: Extubate and remove NG CODE: Full Disposition: Post op care I spent 58 minutes of critical care admitting Mr. Lawson to the ICU for multiorgan support ZUNILDA GAMEZ, ACNP TSICU Associated attestation - Felisha Arroyo MD - 08/16/2019 4:14 PM PDTTICU Attending Note I have reviewed and agree with the above documentation. Please see my separate note from brandi barnhart for a detailed summary of my medical decision making and critical care time. Felisha Arroyo MD procurement agent Division of Trauma, Critical Care and Acute Care Surgery Office: [phone] Pager: [phone] Lakshmi Chatterjee RN - 08/05/2019 10:33 AM [...] Lite meter + testing supplies sent to [facility] pharmacy yesterday . All insulin and [...] Encourage patient to watch DM videos in [facility] Nursing Assessment of Patient Stability Risk [...] Inpatient Diabetes Education & Support Services Pager: [phone] Lakshmi Philip RN - 08/04 12:46 PM [...] [place] liver transplant[place] [facility]. Education provided Basic physiology of the pancreas, diabetes How insulin functions to lower blood glucose levels A1C blood test: What it measures, current level, target/"safe" level BG targets: 80-130 fasting Importance of glucose control for infection prevention and wound healing Materials [facility] Education outcome Patient was very pleasant in [...] much support [place] e [place]near [place] He sister and mother are planning to take turns coming from [facility] to provide care giving assistance, once he gets his transplant. They will be here next romaine royal (08/12). DM-RN working to determine cost of insulin/supplies prior to next visit. Recommendations Primary Team: 1. Please send the following Rx to [facility]acy today (need to determine coverage/co-pay) [...] Focus on insulin skills for now - carevr jose him practice drawing up and injecting insulin doses, with supervision 2. Encourage patient to watch DM videos in [facility] Nursing Assessment of Patient Stability Risk [...] Inpatient Diabetes Education & Support Services Pager: [phone] rene Mena PA-C - 08/03/2019 3:27 PM PDT CARDIOLOGY [...] 72 Hours (or 3 results): Recent Labs 08/01/19 0756 08/02/19 0518 08/03/19 0714 08/03/19 0739 08/03/19 1236 NA 129* [...] 72 hours (or 3 results) Recent Labs 08/01/19 0755 08/02/19 0518 WBC 4.95 4.69 HB 8.2* 7.3* HCT 23.8* 21.7* PLT 31* 30* Liver tests Recent Labs 07/31/19 0441 08/01/19 0756 08/02/19 0518 AST 75* 97* 95* ALT 45 56 [...] plan as documented above. Irene Mena PA-C [facility] [place] [facility] [id number] Associated attestation - David Hoffman MD - [...] David Hoffman MD Cardiovascular Medicine - Electrophysiology [facility] [place] at [facility] Danelle - 08/01/2019 12:13 PM PDTFormatting of this [...] or whole tablet of metoprol ol succinate IRRIGATION EQUIPMENT INSTALLER. Pharmacy verified last metoprolol succinate 50 mg prescription was written for 1 tablet onc e daily for 90 days last filled on 06/12/2019. A more recent Rx was written on 07/07/2019 for metoprolol succinate 50 mg 0.5 tablet once daily but patient never picked it up. Patient stated he filled deferiprone 500 mg overseas and took two doses IRRIGATION EQUIPMENT INSTALLER. Allergies: Allergies Allergen Reactions Doxycycline Hives and Rash Doug Lawson is a 54 year old male admitted to . Pharmacy Preferences: [facility] [address] [place] [address] Hours: 8am-9pm Mon-fri; 9-5:30pm Sat-sun E-Prescribing: Yes E-Prescribing Control Substances: Yes [facility] [address] [place] [address] Hours: 9am-7pm Mon-fri / 9am-6pm Sat / Closed Sun E-Prescribing: Yes E-Prescribing Control Substances: Yes [address] [facility] [address] [place] [address] Hours: 8am-6pm Mon-fri E-Prescribing: Yes E-Prescribing Control Substances: Yes Source of Medication Information: Patient and pharamcy Reliability: Poor -Patient had difficulty participating in the med rec interview. Unable to verify which medi cations patient was taking at home. Insurance Status: Payor/Plan Subscr Sex Relation Sub. Ins. ID Effective Group Num 1. LEAD MATERIAL HANDLER MEDICAID - LEAD MATERIAL HANDLER [place] DOUG LAW[place]* 1965 Male [id number] 05/05/18 [address] [address] 2. SOLID ORGAN TXP - SOLID [place]* DOUG LAWSON FCO* 1965 Male Self [id number] 03/26/19 [facility] [address] Adherence: [...] Danelle De La Torre Candidate Class of 2019 Pager # [phone] Associated attestation - Cecille Whitt PharmD - 08/01/2019 12:50 PM PDT PHARMACY SERVICES: ADMISSION MEDICATION RECONCILIATION ADDENDUM I have reviewed the medication reconciliation information compiled by the pharmacy operations specialist. I have entered the information into the [...] Medication Assessment: Updated medication list per pharmacy operations specialist interview as noted below. Of note Furosemide last filled 04/14/19 for 30DS. Metoprolol is a new dose reduction patient had not yet started. For any further questions regarding this information contact pharmacy, pager #[phone] Thank you for the consult, Cecille Tzou, PharmD Clinical Pharmacist Pager# [phone] Teresita Monk - 07/30/2019 1:49 PM PDT [...] who agrees with the assessment and plan. ASHIA Mcqueen HPI/ REVIEW OF SYSTEMS: Mr. 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 Hospital course c/b afib with RVR requiri ng amiodarone ggt, now on PO amiodarone. Currently being evaluated for liver transplant. [facility] hrology consulted for metabolic acidosis evaluation. States [...] file Gets together: Not on file Attends synagogue service: Not on file Active member of [...] 07/29/2019 URINEWBC 1 07/29/2019 URINEYEAST None 07/29/2019 aylBenja gaspar MD - 07/30/2019 6:51 AM PDT Inpatient [...] otherwise noted. Benja Gant MD Pager # [phone] History of present illness: Reason for consult: Metabolic Acidosis Requesting provider: Des Gamez MD Doug Lawson is a 54 [...] file Gets together: Not on file Attends synagogue service: Not on file Active member of [...] Labs 07/18/19 0858 07/21/19 0344 07/28/19 2250 07/29/19 0537 07/30/19 0523 WBC 8.19 < > 3.80 < > [...] in this interval not displayed. Recent Labs 07/28/1933707/29/1937 07/30/19522 NA 140 134* 131* K 4.6 4.6 4.3 CL 110* 107 104 BICARB 17* 17* 19* BUN 37* 37* 39* CR 1.09 1.04 1.05 Recent Labs 07/18/19 0858 07/19/19 0013 07/21/19 0344 07/22/19 0529 07/26/19 0436 07/28/19 0338 07/29/19 0537 07/30/19 0523 CA 8.9 8.8 < > 9.1 8.9 [...] for: PTH Lab Results Component Value Date [id number] 19.9 04/21/2019 Lab Results Component Value Date [...] fully recover ed. MD Cristino Batres MD [address] [place] [address] Lakshmi Chatterjee RN - 07/28/2019 11:31 AM PDTAssociated Order(s): IP CONSULT TO ADULT DIABETES EDUCATIONDiabetes Education Note Received consult request for new diagnosis DM. Patient not appropriate for education at t his time due to ongoing confusion and disorientation. Will defer teaching until patient in learning condition. Lakshmi Chatterjee RN, BSN Diabetes Nurse Specialist Adult Inpatient Diabetes Education & Support Services Pager: [phone] Beti Ruiz PA-C - 01/2019 10:13 AM [...] to iron overload who was transferred to [facility] on 07/18 for AMS, hyperglycemia, renal ins [...] Jovany Mckinley MD, 30 g at 07/24/19 09 melatonin tablet 3 mg, 3 mg, oral, HS PRN, Rojas Joy MD metoprolol tartrate (LOPRESSOR) tablet 6.25 mg, 6.25 mg, oral, BID, Rojas Joy MD, 6.25 mg at 07/24/19 0921 midodrine (PROAMITINE) tablet 15 mg, 15 mg, [...] to iron overload who was transferred to [facility] on 07/18 for AMS, hyperglycemia, renal ins [...] of this note might be different from brandi james. CARDIOLOGY CONSULT SERVICE PROGRESS NOTE Hospital Day:6 [...] 72 hours (or 3 results) Recent Labs 07/21/19 03407/21/19 1643 07/22/19 0529 07/23/19 0611 WBC 3.80 5.29 4.77 6.19 HB 7.4* 8.5* 8.0* 8.9* HCT 21.3* 24.1* 22.9* 25.6* PLT 25* 27* 28* 38* NEUTROPERC 58.7 -- -- -- LYMPHPERC 28.4 -- -- -- MONOPERC 8.7 -- -- -- BASOPERC 0.5 -- -- -- EOSPERC 3.2* -- -- -- Liver tests Recent Labs 07/18/19 0509 07/21/19 0344 07/23/19 0611 AST 66* 81* 93* ALT 45 [...] above. Sharla Montez MD Cardiovascular Medicine Fellow [facility] Cardiovascular [place] [facility], [place] Associated attestation - [...] kg/m. Intake/Output Summary (Last 24 hours) at 07/20/2019912 Last data filed at 07/20/2019 0912 Gross [...] hours (or 3 results) Recent Labs 07/17/19195207/18/19 0509 07/18/19 0858 07/19/19 0552 07/19/19 1356 07/20/19 0524 [...] not displayed. Liver tests Recent Labs 04/24/1942007/16/19 07/17/19200507/18/19 0509 AST 69* < > 66* 64* 66* [...] above. Sharla Montez MD Cardiovascular Medicine Fellow [facility] Cardiovascular [place] [facility], [place] Associated attestation - [...] the primary team. This patient was staffed [facility] Dr. Can, who agrees with the above assessment and plan unless otherwise documented. Jenifer Kelly MD Pager: [phone] Associated attestation - Donna Can MD - [...] was admitted as a t ransfer from [facility] after presenting there with AMS, [...] g, 0 mL/hr, IV, Q8H Stopped: 07/19 1045 rifAXIMin (XIFAXAN) tablet 550 mg 550 mg, oral, BID Given: 07/19 907 PRN Medication Dose/Rate, Route, Frequency Last Action [...] Topics Concern Social History Narrative Lives in [place] in [facility]. Lives alone. Remote hx of travel to [facility] during childhood. No hx of foreign [...] screw in place who was transferred fr [facility] after presenting there with AMS, [...] Will follow. Donna Can MD Infectious Diseases madofarzana, Rahul Hook MD - 07/18/2019 4:38 PM [...] - Hepatology service will continue to follow. Patien t seen and discussed with Dr. Crowe who agrees with the assessment and plan. Rahul Link MD MS Gastroenterology and Hepatology Fellow Pager [phone] History of Present Illness: Donell Lawson is a 54-year-old man with a history of alcoholic cirrhosis complicated by ascites , leg edema, spur cell adenoma, and secondary iron overload with detectable liver and myocar dial iron overload listed for liver transplant with MELD-Na of 34 who was transferred from [facility] with altered mental status and new onset hyperglycemia, trauma to [facility] after a fall, and renal insufficiency. At the outside hospital he was hemodynamically stable, hyperglycemic to 584, hyponatremic t o 131, Cr 1.85 --> 1.2 currently ; Hgb 10.1 w/smear showing tear drop and [place] cells --> 6.8 here now. Plts 30-40's. [...] file Gets together: Not on file Attends synagogue service: Not on file Active member of [...] no asterixis SKIN: jaundiced Labs: Recent Labs 07/17/19195207/18/1950807/18/19 0858 07/18/19 1317 WBC 6.47 7.11 8.19 [...] and personally formulated the plan with the feed house supervisor. I agree with the feed house supervisor's doc umentation as outlined above. In addition, [...] ient's active medical problems. Vimal Crowe MD Trimmer Helper, [facility] Division of Gastroenterology/Hepatology Homa Vargas MD - 07/18/2019 6:52 AM PDT CARDIOLOGY CONSULT NOTE Attending Bag Shaker: Kaushal Issa MD Referring Physician: Porsche Jackson [...] g, 4-40 g, oral, PRN, Madeleine Del Toro MD insulin regular bolus from continuous infusion [...] file Gets together: Not on file Attends synagogue service: Not on file Active member of [...] documented. Homa Navarro MD Cardiovascular Medicine Fellow [facility] Cardiovascular [place] [facility], [place] Associated attestation - [...] with atrial arrhythmias as outlined in the f syed note. At the time of my exam [...] is loaded with amiodarone. Belén Waite MD Trimmer Helper, [facility] Cardiovascular [place] Adult [facility] Maninder Ricketts MD - 07/17/2019 9:31 PM PDTFormatting of this note might be different fro m the original. [facility] DEPARTMENT OF ORTHOPAEDICS & REHABILITATION HISTORY & [...] transplant yesterday. However, he recently presented to [place] due to confusion and hyperglycemia, and workup [...] prior surgery to the right knee at [facility] by Dr. Alireza Velasquez on 03/21/1999 after [...] ([place]), The orthopaedics consult pager is #[phone], please call with questions. Maninder Ricketts MD Resident Department of Orthopaedics Pager [phone] [facility] [place] Department of Orthopaedics & Rehabilitation [address] [place] [address] Mail Code: [address]31 [facility] [id number] documented in this e ncounter Miscellaneous Notes [...] personal medications were returned to him from [facility] in-patient pharmacy. His peripheral IV has been [...] DC to a rented house in the [place] area with his mother in a private vehicle. He will leave 4A via WC with a mask in place. 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 Manohar pritchett RN checked in with patient today, 08/27 -Will DC 08/29 - HD chair set up andoff - Selin, Rache lle, RN - 08/28/2019 5:06 PM PSTNursing Handoff Patient Daily Goal: Sleep at night (08/26/191944) Patient Specific Preferences: Donell likes chocolate protein shakes, prefers to sit in recline r chair that can elevate his legs (08/18/19 0800) [facility] IP NURSE HANDOFF: Tamez hospital course events: PMH: history of ESLD 2/2 alcohol abuse c omplicated by hepatic encephalopathy, EtOH cirrhosis (MELD 34), 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 resulting in iron overload, afib w/ RvR on metop and amio, KAR on CKD, T 2DM, EF 55-60% (low for hyperdynamics of cirrhosis) HPI: Pt initially presented this admission to [facility] upon transfer from OSH with decompensate d [...] Physical therapist, patient, patient's mother and stepfather, POLYSOMNOGRAPHIC TECHNICIAN Consulted/Discussed patient's care with: JAYDE Kamara Subjective: [...] questions or concerns in preparation for discharge. [facility] BASIC MOBILITY Difficulty turning over in bed [...] A Little - Minimal/Contact Guard Assist/Superv ision [facility] Basic Mobility Total Score 23 *Note: activity was not directly observed and scoring is based on skills and deficits demvon marcos today 1 - Unable to do/total assistance = Total/Dependent Assist 2 - A lot = Maximum/Moderate Assistance 3 - A little = Minimal/Contact Guard Assist/Supervision 4 None = Modified independent/Independent Interpretation of [facility] Short Form - Basic Mobility: CMS Modifier [...] therapy services. VERENA PEARSON, PT, DPT Pager #[phone] Time in: 1120 Time out: 1132 This [...] here until Saturday before heading back to [place]. They plan to return and help care [...] Following, Fadia Verduzco, MS, RD, LD Pager #[phone] Admitting Dx:Doug Lawson is a 54 y.o. [...] who was admitted as a transfer from [facility] after presenting there with AMS, R knee trauma due to a fall, hyperglycemia, renal insufficiency. S/p OLT (08/16) Food allergies/intolerances:none noted Diet order:Diabetic, 1500 ml fluid restriction PO intake: See calorie count above Oral Supplements: chocolate Premier protein shakes x1 as snack Pertinent Meds:vit D3 50,000 units once weekly,lispro/NPH insulin, prilosec, prednisone , tacrolimus, Magen's yogurt Formed BM x 1 (08/28) Skin:3+ [...] 22.4 (08/27) Lab Results Component Value Date [id number] 19.9 04/21/2019 Lab Results Component Value Date [...] EPIC. Calorie count complete. 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 resulting in iron overload, afib w/ RvR on metop and amio, KAR on CKD, T 2DM, EF 55-60% (low for hyperdynamics of cirrhosis) HPI: Pt initially presented this admission to [facility] upon transfer from OSH with decompensate d [...] sister found 2 options near them in [place] for outpt chair-a [facility] and a [employer]-they [...] sister found 2 options near them in [place]-a [facility] and a [employer]-they say they both [...] that can elevate his legs (08/18/19 0800) [facility] IP NURSE HANDOFF: Tamez hospital course events: PMH: history of ESLD 2/2 alcohol abuse c omplicated by hepatic encephalopathy, EtOH cirrhosis (MELD 34), 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 resulting in iron overload, afib w/ RvR on metop and amio, KAR on CKD, T 2DM, EF 55-60% (low for hyperdynamics of cirrhosis) HPI: Pt initially presented this admission to [facility] upon transfer from OSH with decompensate d [...] sister found 2 options near them in [place] for outpt chair-a [facility] and a [employer]-they [...] sister found 2 options near them in [place]-a [facility] and a [employer]-they say they both [...] Hospital Day: 41 Patient was seen on 4A. Present during [...] and to slow tasks down for safety. [facility] BASIC MOBILITY Difficulty turning over in bed [...] w/railing 2 - Alot - Maximum/Moderate Assistance [facility] Basic Mobility Total Score 17 Ended session: [...] for focus on stairs, g ait, safety. Liv García DPT Should this patient discharge from the hospital prior to the next physical therapy treatmen t, this note shall serve as the discharge summary. lan of Care - JasonNicole alvarez - 08/27/2019 8:26 AM PST Problem: Nutrition Interventions Intervention: Food and nutrient distribution type or amount Note: Nutrition: Caloric Intake Analysis for 08/26/2019 65 Grams PROTEIN, 1238 Calories. Figures represent foods eaten at 2 meals, and 2 snacks. Fo ods recorded as eaten in EPIC. Will continue to follow. Nicole Lobo, Salesperson [employer] [phone] andoff - Adenike Newsome RN - 08/27/2019 1:09 AM PSTNursing Handoff Patient Daily Goal: Sleep at night (08/26/19 1945) Patient Specific Preferences: Donell likes chocolate protein shakes, prefers to sit in recline r chair that can elevate his legs (08/18/19 0800) [facility] IP NURSE HANDOFF: Tamez hospital course events: PMH: history of ESLD / alcohol abuse c omplicated by hepatic encephalopathy, EtOH cirrhosis (MELD 34), 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 resulting in iron overload, afib w/ RvR on metop and amio, KAR on CKD, T 2DM, EF 55-60% (low for hyperdynamics of cirrhosis) HPI: Pt initially presented this admission to [facility] upon transfer from OSH with decompensate d [...] sister found 2 options near them in [place] for outpt chair-a [facility] and a [employer]-they [...] sister found 2 options near them in [place]-a [facility] and a [employer]-they say they both have chairs and take his insurance-please follow up with CM in AM Will keep temporary HD until kidney numbers level out andoff - Jenifer Rader RN - 08/26/2019 6:50 PM PSTNursing Handoff Patient Daily Goal: sleep at [facility] (08/25/191944) Patient Specific Preferences: Donell likes chocolate protein shakes, prefers to sit in recline r chair that can elevate his legs (08/18/19 0800) [facility] IP NURSE HANDOFF: Tamez hospital course events: PMH: history of ESLD 2/2 alcohol abuse c omplicated by hepatic encephalopathy, EtOH cirrhosis (MELD 34), 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 resulting in iron overload, afib w/ RvR on metop and amio, KAR on CKD, T 2DM, EF 55-60% (low for hyperdynamics of cirrhosis) HPI: Pt initially presented this admission to [facility] upon transfer from OSH with decompensate d [...] sister found 2 options near them in [place] for outpt chair-a [employer] and a [...] sister found 2 options near them in [place]-a [facility] and a [employer]-they say they both have chairs and take his insurance-please follow up with CM in AM Will keep temporary HD until kidney numbers level out Hodan - Jody Rausch RN - 08/26/2019 8:50 AM PST Interventional Radiology Procedure Nursing Handoff Note Procedure: Tunneled dialysis catheter Interventional Radiology Attending:Harinder Interventional Radiology (Fellow)/pager: [phone] [phone] Procedure Meds: Fentanyl IV 150 mcg Midazolam IV 2 mg Access site(s):LIJ Closure device: sutures Events: Pt arrives pleasant and cooperative, required manual airway adjustment after 2 mg o f Versed, but remained cooperative and easily rousable. Tolerated procedure well. Pt. location prior to IR: 4A Pt. Disposition and /or recovery post IR Procedure: 4A lan of Elise Lawson - 08/26/2019 8:30 AM PST Problem: Nutrition Interventions Intervention: Food and nutrient distribution type or amount Note: Nutrition: Caloric Intake Analysis for 08/25/2019 54 Grams PROTEIN, 1085 Calories. Figures represent foods eaten at 3 meals. Foods recorded a s eaten in EPIC. Will continue to follow. Elise Denise, Salesperson [employer] [phone] lan of Verena Rivera i, PT - 08/26/2019 8:22 AM PSTPhysical Therapy Contact Note: Patient remains on physical therapy caseload, currently off unit in IR for scheduled tunnel ed dialysis catheter placement. Will follow up as able to and appropriate. Thank you. Verena Pearson PT, DPT Pager #[phone] signed by Verena Pearson PT at 08/26/2019 8:22 AM Azar retana - Adenike Newsome RN - 08/26/2019 3:05 AM PSTNursing Handoff Patient Daily Goal: sleep at [facility] (08/25/19 1945) Patient Specific Preferences: Donell likes chocolate protein shakes, prefers to sit in recline r chair that can elevate his legs (08/18/19 0800) [facility] IP NURSE HANDOFF: Tamez hospital course events: PMH: history of ESLD 2/2 alcohol abuse c omplicated by hepatic encephalopathy, EtOH cirrhosis (MELD 34), 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 resulting in iron overload, afib w/ RvR on metop and amio, KAR on CKD, T 2DM, EF 55-60% (low for hyperdynamics of cirrhosis) HPI: Pt initially presented this admission to [facility] upon transfer from OSH with decompensate d [...] is ambulating independently in the room using iwgjd-ju-bkanp contact and calling appropr iately when he [...] IR tomorrow Barriers to discharge: - needs cheerleading coach consult to review Renal diet- pt ordering [...] r chair that can elevate his legs (10/29/19 0800) [facility] IP NURSE HANDOFF: Tamez hospital course events: PMH: history of ESLD 2/2 alcohol abuse c omplicated by hepatic encephalopathy, EtOH cirrhosis (MELD 34), 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 resulting in iron overload, afib w/ RvR on metop and amio, KAR on CKD, T 2DM, EF 55-60% (low for hyperdynamics of cirrhosis) HPI: Pt initially presented this admission to [facility] upon transfer from OSH with decompensate d [...] ambulating indepen dently in the room using znfdm-fr-setlr contact and calling appropriately when he needs [...] IR tomorrow Barriers to discharge: - needs cheerleading coach consult to review Renal diet- pt ordering [...] new requirement from our new DIALYSIS vendor ([employer]) Patient has consented to dialysis support, he understands risks and benefits and has agreed to proceed with therapy. Please see signed consent on EPIC for further details Next HD session scheduled for today lan of Care - Federico Julian, PT - 08/25/2019 8:52 AM PSTPhysical Therapy Contact Note: Chart reviewed, RN consulted and reported patient is heading off to dialysis soon and unava ilable at this time. Will re-attempt as able. Federico Julian, PT, DPT andoff - Dacia Umana RN - 08/25/2019 8:10 AM PSTNursing Handoff Patient Daily Goal: walk more, manage leg swelling (08/22/19 0800) Patient Specific Preferences: Donell likes chocolate protein shakes, prefers to sit in recline r chair that can elevate his legs (08/18/19 0800) [facility] IP NURSE HANDOFF: Tamez hospital course events: PMH: history of ESLD 2/2 alcohol abuse c omplicated by hepatic encephalopathy, EtOH cirrhosis (MELD 34), 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 resulting in iron overload, afib w/ RvR on metop and amio, KAR on CKD, T 2DM, EF 55-60% (low for hyperdynamics of cirrhosis) HPI: Pt initially presented this admission to [facility] upon transfer from OSH with decompensate d [...] ambulating indepen dently in the room using hakgb-kf-rdihi contact and calling appropriately when he needs [...] placed 08/22 Barriers to discharge: - needs cheerleading coach consult to review Renal diet- pt ordering [...] to add pressure. Macie Aggarwal MD, MPH, RETAIL GREETING CARD MERCHANDISER General Surgery, PGY-1 Addendum: Coags returned, INR [...] that can elevate his legs (08/18/19 0800) [facility] IP NURSE HANDOFF: Tamez hospital course events: PMH: history of ESLD 2/2 alcohol abuse c omplicated by hepatic encephalopathy, EtOH cirrhosis (MELD 34), 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 resulting in iron overload, afib w/ RvR on metop and amio, KAR on CKD, T 2DM, EF 55-60% (low for hyperdynamics of cirrhosis) HPI: Pt initially presented this admission to [facility] upon transfer from OSH with decompensate d [...] ambulating indepen dently in the room using nmoyn-vi-ywibp contact and calling appropriately when he needs [...] placed 08/22 Barriers to discharge: - needs cheerleading coach consult to review Renal diet- pt ordering whoppers and fried chicken, family delivering Meño saw Pt on 08/24 - Needs specialty [...] Depletion of fat stores:moderate(orbital) Depletion of muscle mass:severe(baptist, shoulder, scapula, clavicle) Fluid accumulation:severe(ascites and significant [...] here until Saturday before heading back to [place]. They plan to return and help care [...] diet restrictions prior to discharge. Following, Fadia Verduzco, MS, RD, LD Pager #[phone] Admitting Dx:Doug Lawson is a 54 y.o. [...] who was admitted as a transfer from [facility] after presenting there with AMS, [...] 24.5 (08/24) Lab Results Component Value Date [id number] 19.9 04/21/2019 Lab Results Component Value Date [...] as able. Javi Ren, PT, DPT Pager: [phone] lan of Sharyn Avila - 08/24/2019 10:33 AM PSTFormatting of this note might be different from the martha younger. Occupational therapy treatment note: [id number] DOUG LAWSON Date of : 1965 Start of care: 07/17/2019 Date of onset: 07/17/2019 Referring/Attending Practitioner: Marsha Garcia MD Primary/Referral Diagnosis/ICD-9: K70.31 Alcoholic cirrhosis of liver with ascites (HCC) I47.1 SVT (supraventricular tachycardia) (HCC) Insurance: Payor: [employer] / Plan: [employer] [place]EXT [place] / Product Type: Medicaid / 08/24/2019 10:33 AM Time in: 0910 Time out: 09 Pt admitted 07/17/2019, hospital day # 38 [...] extremity to return to supine in bed. [facility] daily activity assessment How much help from another person does the patient currently need for: Lower body dressing 2 - Alot Bathing 2 - Alot Toileting 3 - Little Upper body dressing 3 - Little Personal grooming 3 - Little Eating meals 4 - None [facility] Daily Activity Total Score 17 *Notes activity was not directly observed and scoring is based on skills and deficits demon strated today. 1 - Unable to do/total assistance = Total/Dependent Assist 2 - A lot = Maximum/Moderate Assistance 3 - A little = Minimal/Contact Guard Assist/Supervision 4 None = Modified independent/Independent Interpretation of [facility] Short Form Daily Activity: CMS Modifier (G-Code) [...] will complete LB dressing for socks with [place] New goals 08/20 Pt will be modified [...] ADL Trainin minutes Sharyn Bajwa OTR/L Pager #[phone] andoff - Jersey Umana RN - 08/24/2019 6:14 AM PSTNursing Handoff Patient Daily Goal: walk more, manage leg swelling (08/22/19 0800) Patient Specific Preferences: Donell likes chocolate protein shakes, prefers to sit in recline r chair that can elevate his legs (08/18/19 08) [facility] IP NURSE HANDOFF: Tamez hospital course events: PMH: history of ESLD 2/2 alcohol abuse c omplicated by hepatic encephalopathy, EtOH cirrhosis (MELD 34), 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 resulting in iron overload, afib w/ RvR on metop and amio, KAR on CKD, T 2DM, EF 55-60% (low for hyperdynamics of cirrhosis) HPI: Pt initially presented this admission to [facility] upon transfer from OSH with decompensate d [...] Is ambulating independently in the room using waiap-cl-mgnfp contact and calling appropriately when he needs [...] placed 08/22 Barriers to discharge: - needs cheerleading coach consult to review Renal diet- pt ordering whoppers and fried chicken, family delivering - Needs specialty teaching for cbg monitoring at home-will be using different monitor than our stock - Waiting for support person(s?) to be in state for all post-transplant teachings. Reported ly Saturday? - pending kidney recovery/newly starting dialysis andoff - Kristina, Jesika kate RN - 08/23/2019 6:26 PM PSTNursing Handoff Patient Daily Goal: walk more, manage leg swelling (08/22/19 0800) Patient Specific Preferences: Donell likes chocolate protein shakes, prefers to sit in recline r chair that can elevate his legs (08/18/19 0800) [facility] IP NURSE HANDOFF: Tamez hospital course events: PMX: history of ESLD 2/2 alcohol abuse complicated by hepatic encephalopathy, EtOH cirrhosis (MELD 34), spur cell anemia requiring chronic transfusions resulting in iron overload, afib w/ RvR on metop and amio, KAR on CKD, T2DM, EF 55-60% (low for hyperdynamics of cirrhosis) HPI: Pt initially presented this admission to [facility] upon transfer from OSH with decompensate d [...] Is ambulating independently in the room using mssbc-ot-xubez contact and calling appropriately when he needs [...] is aware Barriers to discharge: - needs cheerleading coach consult to review Renal diet- pt ordering [...] that can elevate his legs (08/18/19 08) [facility] IP NURSE HANDOFF: Tamez hospital course events: PMX: history of ESLD 2/2 alcohol abuse complicated by hepatic encephalopathy, EtOH cirrhosis (MELD 34), spur cell anemia requiring chronic transfusions resulting in iron overload, afib w/ RvR on metop and amio, KAR on CKD, T2DM, EF 55-60% (low for hyperdynamics of cirrhosis) HPI: Pt initially presented this admission to [facility] upon transfer from OSH with decompensate d [...] Is ambulating independently in the room using maymv-lw-nxbal contact and calling appropriately when he needs [...] is aware Barriers to discharge: - needs cheerleading coach consult to review Renal diet- pt ordering whoppers and fried chicken, family delivering - Needs specialty teaching for cbg monitoring at home-will be using different monitor than our stock - Waiting for support person(s?) to be in state for all post-transplant teachings. Reported ly Saturday? - pending kidney recovery/newly starting dialysis lan of Ramila - Jr Lim - 08/23/2019 7:43 AM PST Problem: Nutrition Interventions Intervention: Food and nutrient distribution type or amount Note: Nutrition: Caloric Intake Analysis for 08/22/2019 48 Grams PROTEIN, 795 Calories. Figures represent foods eaten at 2 meals. Foods recorded as eaten in EPIC. Calorie count complete. Meagan Lim DTR [id number] andoff - Faith Borrego RN - 08/23/2019 5:00 AM PSTNursing Handoff Patient Daily Goal: walk more, manage leg swelling (08/22/19 0800) Patient Specific Preferences: Donell likes chocolate protein shakes, prefers to sit in recline r chair that can elevate his legs (08/18/19 0800) [facility] IP NURSE HANDOFF: Tamez hospital course events: PMX: history of ESLD 2/2 alcohol abuse c omplicated by hepatic encephalopathy, EtOH cirrhosis (MELD 34), 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 resulting in iron overload, afib w/ RvR on metop and amio, KAR on CKD, T 2DM, EF 55-60% (low for hyperdynamics of cirrhosis) HPI: Pt initially presented this admission to [facility] upon transfer from OSH with decompensate d [...] be overestimating his abilities when ambulating, sayi ng he doesn't need to use walker, and [...] that can elevate his legs (08/18/19 08) [facility] IP NURSE HANDOFF: Tamez hospital course events: PMX: history of ESLD 2/2 alcohol abuse complicated by hepatic encephalopathy, EtOH cirrhosis (MELD 34), spur cell anemia requiring chronic transfusions resulting in iron overload, afib w/ RvR on metop and amio, KAR on CKD, T2DM, EF 55-60% (low for hyperdynamics of cirrhosis) HPI: Pt initially presented this admission to [facility] upon transfer from OSH with decompensate d [...] Is ambulating independently in the room using jibld-rw-jmvhq contact and calling appropriately when he needs [...] Will continue to follow. Meagan Lim DTR [id number] lan of Pravin Patterson PT - 08/21/2019 8:20 PM PDTFormatting of this note might be different from the maru odell Problem: PT Goals- Adult Goal: Functional Mobility [...] don't like these socks." Pain: with mobility 5/10 Objective: Patient received supine in bed, head [...] pearson within reach and RN was notified [facility] BASIC MOBILITY Difficulty turning over in bed [...] to do/total assistance - Total/Dependen t Assist [facility] Basic Mobility Total Score 16 Assessment: Patient [...] activities to meet his goals. Interpretation of [facility] Short Form - Basic Mobility: CMS Modifier [...] shall serve as the discharge summary. Shirley Ochoa, PT #[id number] signed by Shirley Ochoa PT at 08/21/2019 8:30 PM PDTHandoff - Chan Dickens RN - 08/21/2019 6:34 PM PDTNursing Handoff Patient Daily Goal: Slowing of BMs (08/21/19 0737) Patient Specific Preferences: Donell likes chocolate protein shakes, prefers to sit in recline r chair that can elevate his legs (08/18/19 0800) [facility] IP NURSE HANDOFF: Tamez hospital course events: PMX: history of ESLD 2/2 alcohol abuse c omplicated by hepatic encephalopathy, EtOH cirrhosis (MELD 34), 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 resulting in iron overload, afib w/ RvR on metop and amio, KAR on CKD, T 2DM, EF 55-60% (low for hyperdynamics of cirrhosis) HPI: Pt initially presented this admission to [facility] upon transfer from OSH with decompensate d [...] Is ambulating independently in the room using ngohk-ur-izqlz contact and calling appropriately when he needs [...] ly Saturday? lan of Care - Fadia Coughlin, RD - 08/21/2019 12:41 PM PDTFormatting of [...] BM x 7 yesterday, x1 so far justice Edwards added. Currently tolerating TF of Impact Peptide [...] Depletion of fat stores:moderate(orbital) Depletion of muscle mass:severe(baptist, shoulder, scapula, clavicle) Fluid accumulation:severe(ascites and significant [...] here until Saturday before heading back to [place]. They plan to return an d help [...] Following, Fadia Verduzco, MS, RD, LD Pager #[phone] Admitting Dx:Doug Lawson is a 54 y.o. [...] who was admitted as a transfer from [facility] after presenting there with AMS, [...] 23.0 (08/20) Lab Results Component Value Date [id number] 19.9 04/21/2019 Lab Results Component Value Date [...] 25.1 kg/m2 Estimated Nutrition Needs post OLT: 4999-4027 kcals (30-35 kcal/kg), 122-163 gm protein (1. [...] lan of Ramila - Meagan Lim - 08/21/2019 8:52 AM PDT Problem: Nutrition Interventions Intervention: Food and nutrient distribution type or amount Note: Nutrition: Caloric Intake Analysis for 08/20/2019 89 Grams PROTEIN, 1,019 Calories. Figures represent foods eaten at 3 meals, and 2 snacks. I ncludes 650 ml of Premier Protein. Foods recorded as eaten in EPIC. Will continue to follow. 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 Reported ly Saturday? 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 He has been up to the BR 6-7 times. He was up in the chair for breakfast and dinner, and didn't eat lunch. Endotool DC'd around noon today Appetite has improved. TF rate decreased to 70 ml/hr and will transition to 12 hr runs saeed rrow, per [place]. Is now having loose stools. Benefiber added, HOLD BOWEL MEDS TONIGHT Will perform IS, but needs encouragement. HEALTH [...] patient: registered nurse to assist with lele teixeira Patient was seen for a total of 31 minutes of direct one on one skilled Physical Therapy wh ich included 31 minutes of therapeutic activity. Brief Hospital Course: Doug Chan Kirkjosé luis 54 y.o. s/p OLTx on 08/16 for [...] safety concerns of walker and environment management. [facility] BASIC MOBILITY Difficulty turning over in bed [...] to do/total assistance - Total/Dependen t Assist [facility] Basic Mobility Total Score 16 Ended session: [...] mobility will not equal pre-op mobility of nicoin g ability to perform stairs easily or [...] the discharge summary. lan of Care - Garett Sharyn - 08/20/2019 10:09 AM PDTFormatting of this note might be different from the orig inal. Occupational Therapy Re-Evaluation [id number] DOUG LAWSON Date of : 1965 Start of care: 07/17/2019 Date of onset: 07/17/2019 Referring/Attending Practitioner: Marsha Garcia MD Primary/Referral Diagnosis/ICD-9: K70.31 Alcoholic cirrhosis of liver with ascites (HCC) I47.1 SVT (supraventricular tachycardia) (HCC) Insurance: Payor: [employer] / Plan: [employer] [place] / Product Type: Medicaid / Service [...] by hepatic encephalopathy, spur cell anemia requiring feed crusher samuel transfusions resulting in iron overload, afib, and KAR on CKD. Pt admitted on 07/17/2019 and optimized with DHT placement due to encephalopathy" Procedures: 08/16/19: OLTx Present in Session: Patient Only Pt/family occupational goals: To go home Analysis of Occupational Performance New living environment: pt states his family has purchased him a home near [facility] where he will be staying with his [...] Proprioception: Intact Tactile: Reports Functional performance skills [facility] DAILY ACTIVITY - How much help from another person does the patient currently need f or: Lower body dressing 2 - Alot Bathing 2 - Alot Toileting 3 - Little Upper body dressing 3 - Little Personal grooming 3 - Little Eating meals 3 - Little [facility] Daily Activity Total Score 16 1 - Unable to do/total assistance = Total/Dependent Assist 2 - A lot = Maximum/Moderate Assistance 3 - A little = Minimal/Contact Guard Assist/Supervision 4 None = Modified independent/Independent Interpretation of [facility] Short Form Daily Activity: CMS Modifier (G-Code) [...] Provided Education on abdominal precautions, pt recalls 10/23. Education on compensatory strategies fo r lower [...] (10/23) - Duration: 2 weeks Time in: 0914 Time out: 1003 Patient was seen for [...] Doug and family. Sharyn Bajwa OTR/L Pager #[phone] lan of Ramila - Nicole Lobo - 08/20/2019 9:05 AM PDT Problem: Nutrition Interventions Intervention: Food and nutrient distribution type or amount Note: Nutrition: Caloric Intake Analysis for 08/19/2019 26 Grams PROTEIN, 774 Calories. Figures represent foods eaten at 3 meals. Includes 60 ml of Ensure Compact. Foods recorded as eaten in EPIC. Will continue to follow. 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 resulting in iron overload, afib w/ RvR on metop and amio, KAR on CKD, T 2DM, EF 55-60% (low for hyperdynamics of cirrhosis) HPI: Pt initially presented this admission to [facility] upon transfer from OSH with decompensate d [...] is to give 2nd dose of NPH 10 AM and take pt off endotool if [...] that can elevate his legs (08/18/19 0800) [facility] IP NURSE HANDOFF: Tamez hospital course events: PMX: history of ESLD 2/2 alcohol abuse c omplicated by hepatic encephalopathy, EtOH cirrhosis (MELD 34), 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 resulting in iron overload, afib w/ RvR on metop and amio, KAR on CKD, T 2DM, EF 55-60% (low for hyperdynamics of cirrhosis) HPI: Pt initially presented this admission to [facility] upon transfer from OSH with decompensate d [...] of Service: 08/16/2019 Attending Surgeon:Marsha Garcia MD Boiler Operators Supervisor(s): Bailee Ken MD Preoperative Diagnosis: End-stage liver [...] Anesthesia: General. Relevant Donor Details: 1.UNOS ID: [id number]. 2.Donor clamp on at 08/15/2019 at 7:59 [...] in the usual sterile fashion . A dimension mill worker-out was performed, including donor recipient ABO, UNOS [...] brooke lauren side. We then placed the [place] retractor in. The gallbladder was profoundly distend [...] w for adequate tension and did a osmiug-ew-dswzsg anastomosis with 6-0 Prolene. We then rep [...] counts were correct. Marsha Garcia MD ECM/MODL /[id number] signed by Marsha Garcia MD at 08/20/2019 8:23 AM PDTPlan of [facility] - Jose Lipscomb, PT - 08/19/2019 1:24 PM PDTFormatting of [...] assisting patient back to bed at 1215. [facility] BASIC MOBILITY Difficulty turning over in bed [...] to do/total assistance - Total/Dependen t Assist [facility] Basic Mobility Total Score 16 Assessment: Patient [...] level of function and independence. Interpretation of [facility] Short Form - Basic Mobility: CMS Modifier [...] progress toward goal lan of Care - Elise Shoemaker - 08/19/2019 7:52 AM PDT Problem: Nutrition Interventions Intervention: Food and nutrient distribution type or amount Note: Nutrition: Caloric Intake Analysis for 08/18/2019 21 Grams PROTEIN, 150 Calories. Figures represent foods eaten at 1 meal. Pt declined lunch and dinner. Includes 165 mL of Premier Protein. Foods recorded as eaten in EPIC. Will contin ue to follow. 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 resulting in iron overload, afib w/ RvR on metop and amio, KAR on CKD, T 2DM, EF 55-60% (low for hyperdynamics of cirrhosis) HPI: Pt initially presented this admission to [facility] upon transfer from OSH with decompensate d [...] to chair x3, walk x2 today (08/18/19 0800) Patient Specific Preferences: Donell likes chocolate protein shakes, prefers to sit in recline r chair that can elevate his legs (08/18/19 0800) [facility] IP NURSE HANDOFF: Tamez hospital course events: PMX: history of ESLD 2/2 alcohol abuse c omplicated by hepatic encephalopathy, EtOH cirrhosis (MELD 34), 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 T qing denies pain, reports minor abdominal discomfort. NURSING [...] Will continue to follow. 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 L ikes abdominal binder on when walking. NURSING ASSESSMENT & RECOMMENDATIONS FORWARD Nursing Assessment of Patient Stability Risk: Moderately unstable Recommendations Forward: - Cont to encourage OOB activity, breathing exercises, good nutrition. - Donell likes chocolate protein shakes. - Abdominal binder on for mobilization efforts. lan of Care - Fadia Coughlin, ROXANNE - 08/17/2019 2:27 PM PDTFormatting of this [...] Depletion of fat stores:moderate(orbital) Depletion of muscle mass:severe(baptist, shoulder, scapula, clavicle) Fluid accumulation:severe(ascites and significant [...] members today to begin diabetes nutrition education. Hina swann and mom will be here until Saturday before heading back to [place]. They plan to return an d help [...] Following, Fadia Verduzco, MS, RD, LD Pager #[phone] Admitting Dx:Doug Lawson is a 54 y.o. [...] who was admitted as a transfer from [facility] after presenting there with AMS, [...] not displayed. Lab Results Component Value Date [id number] 19.9 04/21/2019 Lab Results Component Value Date [...] 25.1 kg/m2 Estimated Nutrition Needs post OLT: 6016-1840 kcals (30-35 kcal/kg), 122-163 gm protein (1. 5-2.0 gm/kg) Wt Readings from Last 4 Encounters: 08/15/19 98.2 kg (216 lb 7.9 oz) 07/06/19 88.1 kg (194 lb 3.2 oz) 05/20/19 88.2 kg (194 lb 6.4 oz) 05/20/19 88 kg (194 lb) lan of Care - Verena Braga, PT - 08/17/2019 10:43 AM PDT Physical Therapy Re-Evaluation & Treatment [id number] [facility] day 31 Date of : 1965 Start of care: 07/17/2019 Attending Practitioner: Marsha Garcia MD Primary/Referral Diagnosis/ICD-9: K70.31 Alcoholic cirrhosis of liver with ascites (HCC) I47.1 SVT (supraventricular tachycardia) (HCC) Insurance: Payor: [facility] MEDICAID / Plan: [facility] [place] / Product Type: Medicaid / Service period from: 08/17/2019 to 09/16/2019 Time in: 0914 Time out: 0957 This patient was seen for a total of 43 minutes of direct one-on-one skilled physical thera py which included re-evaluation and 23 minutes of therapeutic activity. 08/17/2019 10:44 AM Patient seen on 8C. Parties present for session: Physical therapist, physical therapy environmental engineering intern, patient, intermit tently RN Consulted/Discussed patient's [...] return to prior level of health Communication: Singaporean Barriers: none Pain: Patient reports that his [...] for healing. Patient verbalizes understanding. Handout(s) provided. [facility] BASIC MOBILITY Difficulty turning over in bed [...] w/railing 2 - Alot - Maximum/Moderate Assistance [facility] Basic Mobility Total Score 16 *Note: This activity was not directly observed and scoring is implied based on other compon ents of patient's mobility and may be an underestimate 1 - Unable to do/total assistance = Total/Dependent Assist 2 - A lot = Maximum/Moderate Assistance 3 - A little = Minimal/Contact Guard Assist/Supervision 4 None = Modified independent/Independent Interpretation of [facility] Short Form - Basic Mobility: CMS Modifier [...] entire session. The student participated in the yoko cooper of services while I directed the service, made the skilled judgment, and was responsible for the assessment and treatment. I verify that I directed the plan of care and was immediately available for assistance as n ecessary both during the session and documentation. Verena Pearson, PT, DPT Physical Therapist Pager #[phone] signed by Verena Pearson PT at 08/17/2019 [...] Patient Specific Preferences: tv/movies on (07/21/19 0800) [facility] IP NURSE HANDOFF: Tamez hospital course events: [...] initially presented to for this admission to [facility] on transfer from [facility] with decompensated [...] 08/16/2019 10:22 AM PDTBrief Op Note - Suellen RUDD, Shanita Miranda - 08/16/2019 7:21 AM PDT . Date of procedure: 07/17/2019 - 08/16/2019 Times Event Time In Procedure Start [place] Aug 16, 2019 0051 Location: [facility] Surgeon(s) and Role: * Marsha Garcia MD - Primary * Bailee Ken MD - Fellow Staff: Method Consultant: Lashonda Valdez RN Scrub: Terrell Doherty RN; [...] control: SSI, insulin gtt prn UNOS ID: [id number] Donor ABO: A Donor CMV: - Recipient [...] 3. Place both triple lumen and introducer/ [place]-Lisa 1. Weigh patient 2. VS per [facility] Protocol 3. Strict I & O 4. On admission & q4h: CBC/CMP/Coags/Mg/Phos 5. Amylase on admission 6. CXR on admission then per [facility] protocol 7. ABG per protocol 8. Wean Propofol if no chemical paralysis 9. Fentanyl gtt for pain 10. Wean pressors 11. Fast track to extubate (ideal <4h) 12. Start Fentanyl controller mechanic when alert 13. NGT out with ET tube unless Malcolm & Y 14. Remove [place]/Lisa <6h 15. Electrolytes Replaced per protocol 1. [...] within 4h of admission, when appropriate Remove [place]/Lisa catheter within 6h of admission SBP Goal [...] output as an end goal of resuscitation, ashley negron contact Transplant attending or advanced practice provider for guidance whenever initi ating colloid resuscitation in our liver transplant recipients. Specimens ID Type Source Tests Collected by Time Destination 1 : ascites Fluid Abdominal CULTURE, AFB (ALL SPEC TYPES EXCEPT BLOOD), CELL COUNT DIFF, B SHAVON FLUID, CULTURE, BODY FLUID, NON SLIP COVER ESTIMATOR CYTOLOGY, CULTURE, FUNGAL EXCEPT BLOOD, SKIN, HAIR, NAIL Marsha Garcia MD 08/16/2019 0132 2 : recipient false pass liver and gallbladder Tissue Liver SURGICAL PATHOLOGY [...] the resident s note. MARSHA GARCIA MD [facility] [address] [place] [address] Handoff - Ana Cristina Carter RN - 08/15/2019 12:36 PM PDTNursing Handoff Patient Daily Goal: get my pepper steak today (08/15/19 0741) Patient Specific Preferences: tv/movies on (07/21/19 0800) [facility] IP NURSE HANDOFF: [facility] hospital course events: [...] transplant 08/15 Possible liver transplant at 2300 tonight COMFORT/ANXIETY/BEHAVIOR Patient/Family Target: Donell and/or family will [...] waiting for organ andoff - Ivy Roman, JAYDE - 08/14/2019 5:53 PM PDTNursing Handoff Patient Daily Goal: Eat dinner (08/13/192121) Patient Specific Preferences: tv/movies on (07/21/19 0800) [facility] IP NURSE HANDOFF: [facility]z hospital course events: [...] in halls x2 [facility] Patient/Family Target: Doenll will have 2-3-BM this shift. (Goal is [...] today as time allows. Tamika Banuelos RD [facility] Pager #[phone] andoff - David Macias, RN - 08/13/2019 9:35 PM PDTNursing Handoff Patient Daily Goal: Eat dinner (08/13/192121) Patient Specific Preferences: tv/movies on (07/21/19 0800) [facility] IP NURSE HANDOFF: [facility]z hospital course events: [...] Patient Specific Preferences: tv/movies on (07/21/19 0800) [facility] IP NURSE HANDOFF: [facility]z hospital course events: [...] own insulin this morning. [facility] saying he already knew how to do [...] waiting for organ lan of Care - [facility] and, January, - 08/13/2019 1:57 PM PDT Problem: Nutrition Interventions Intervention: Nutrition Education Note: Met with patient and family members today to begin diabetes nutrition education. Sister and mom will be here until Saturday before heading back to [place]. They plan to return and help c [...] moderate (orbital) Depletion of muscle mass: severe (baptist, shoulder, scapula, clavicle) Fluid accumulation: severe (ascites and significant edema in BLE at least to knee) Rec: - Continue Regular, 2 gm sodium diet with textures per RADIATION MONITOR/MD - Fluids per MD discretion - Premier [...] mag chloride (slow mag) Following, January Vin OLIVEIRA [facility] Pager #[phone] Admitting Dx: Doug Lawson is a 54 [...] who was admitted as a transfer from [facility] after presenting there with AMS, [...] LDL, VLDL Lab Results Component Value Date [id number] 19.9 04/21/2019 Lab Results Component Value Date [...] 122 Max: 225 LastCBG Intervention: Medication given (08/11/192245) Ht: 71" Current wt: 96.8 kg Dosing wt: 81.6 kg BMI: 25.1 kg/m2 Estimated needs: 6470-4640 kcal (25-30 kcal/kg) and 85-125 gm protein [...] Patient Specific Preferences: tv/movies on (07/21/19 0800) [facility] IP NURSE HANDOFF: [facility] hospital course events: [...] on list, waiting for organ andoff - Carola Peter RN - 08/12/2019 1:27 PM PDTNursing Handoff Patient Daily Goal: Pt will report feelin rested upon waking. (08/11/192046) Patient Specific Preferences: tv/movies on (07/21/19 0800) [facility] IP NURSE HANDOFF: [facility] hospital course events: [...] - With lots of pressure and encouragement Donell agreed to administer his own insulin x1 - Lack of attention to teaching and practice, unsure if Donell and his family grasp the import ance of being able to manage his DM after he receives liver tx. - Dnoell and his family failed to notify RN [...] on list, waiting for organ andoff - Teresa Macias RN - 08/11/2019 9:02 PM PDTNursing Handoff Patient Daily Goal: Pt will report feelin rested upon waking. (08/11/192046) Patient Specific Preferences: tv/movies on (07/21/19 0800) [facility] IP NURSE HANDOFF: [facility] hospital course events: [...] list, waiting for organ andoff - Jermaine Vargas, RN - 08/11/2019 10:21 AM PDTNursing Handoff Patient Daily Goal: RN advocacy self administer insulin today (08/09/19 0750) Patient Specific Preferences: tv/movies on (07/21/19 0800) [facility] IP NURSE HANDOFF: [facility]z hospital course events: [...] requested to go on a walk with POLYSOMNOGRAPHIC TECHNICIAN this morning to "stretch his legs" -Donell [...] Patient Specific Preferences: tv/movies on (07/21/19 0800) [facility] IP NURSE HANDOFF: [facility] hospital course events: [...] period. If difficult to control despite amio/metop, [facility] also offer ablative therapies prior to transplant. [...] -patient remains in bathroom after PT session. [facility] BASIC MOBILITY Difficulty turning over in bed [...] A Little - Minimal/Contact Guard Assist/Superv ision [facility] Basic Mobility Total Score 23 Interpretation of [facility] Short Form - Basic Mobility: CMS Modifier [...] limited, or restricted Predicts discharge post hospitalization ([facility] raw score: 6-24) Home = 20.1 Home with home care = 17.9 senior care facility = 13.6 Inpatient rehabilitation facility = 13.6 terminal gauger care = 11.5 Ben Aguilar. The use of functional outcome measure in acute care to guide discharg e recommendations. J Acute Physiological Chemist. 2012;3(3):248. Assessment: Patient presents with improved MS [...] shall serve as the discharge summary. lan [facility] , January, - 08/10/2019 12:24 PM PDTFormatting of this [...] moderate (orbital) Depletion of muscle mass: severe (baptist, shoulder, scapula, clavicle) Fluid accumulation: severe (ascites and significant edema in BLE at least to knee) Rec: - Continue Regular, 2 gm sodium diet with textures per RADIATION MONITOR/MD - Fluids per MD discretion - Premier [...] and no fiber daily) Following, January Vin [facility] Pager #[phone] Admitting Dx: Doug Lawson is a 54 [...] who was admitted as a transfer from [facility] after presenting there with AMS, [...] LDL, VLDL Lab Results Component Value Date [id number] 19.9 04/21/2019 Lab Results Component Value Date [...] 81.6 kg BMI: 25.1 kg/m2 Estimated needs: 5837-8456 kcal (25-30 kcal/kg) and 85-125 gm protein (1-1.5 gm/kg) Wt Readings from Last 4 Encounters: 08/07/19 85.9 kg (189 lb 6 oz) 07/06/19 88.1 kg (194 lb 3.2 oz) 05/20/19 88.2 kg (194 lb 6.4 oz) 05/20/19 88 kg (194 lb) andjanay - Sonia Fitzgerald RN - 08/10/2019 2:18 AM PDTNursing Handoff Patient Daily Goal: RN advocacy self administer insulin today (08/09/19 3960) Patient Specific Preferences: tv/movies on (07/21/19 0800) [...] list, waiting for organ andoff - Arron Vargas RN - 08/09/2019 10:56 AM PDTNursing Handoff [...] organ andoff - Adam Benjamin RN - 08/09/2019 4:20 AM PDTNursing Handoff [...] RN advocacy participate in blood sugar management (08/08/19799 ) Patient Specific Preferences: tv/movies on (07/21/19 08) [facility] IP NURSE HANDOFF: [facility]z hospital course events: [...] he is no long er confused. -08/04 [employer] contacted -AMS -Liver transplant- on list, waiting for organ andoff - Adam Benjamin RN - 08/08/2019 3:54 AM PDTNursing Handoff Patient Daily Goal: "I want 6 hours of sleep" (08/07/192054) Patient Specific Preferences: tv/movies on (07/21/19 0800) [facility] IP NURSE HANDOFF: [facility]z hospital course events: [...] evidenced by: Donell became irritated with the POLYSOMNOGRAPHIC TECHNICIAN this shift when attempting to promote independence [...] Patient Specific Preferences: tv/movies on (07/21/19 0800) [facility] IP NURSE HANDOFF: [facility]z hospital course events: [...] Donell becomes easily irritated if RN or POLYSOMNOGRAPHIC TECHNICIAN promote independence with CBG's and insulin adm inistration ("what else do I pay you for?"). When Donell heard from hepatology this morning merlyn t he is at the top of the transplant list, Donell stated he was now "motivated" and willing to try a bit harder to understand what he needs to do to be healthy. 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 Figures represent foods eaten at 3 meals. Includes 325 ml o f Premier Protein. Foods recorded as eaten in EPIC. Calorie count complete. Meagan Lim DTR [id number] andoff - Ester Benjamin R N - 08/07/2019 [...] Patient Specific Preferences: tv/movies on (07/21/19 0800) [facility] IP NURSE HANDOFF: [facility]z hospital course events: [...] he is no long er confused. 08/04 [employer] contacted -AMS - Liver transplant- on list, waiting for organ lan of Care - Trisha Mccullough, PT - 08/06/2019 11:47 AM PDTFormatting of this note might be different from the or iginal. Physical Therapy 08/06/2019 11:47 AM Hospital Day # 20. Patient seen on 5A. Others present in room aside from patient and PT: rehab student Time in: 0900 Time out: 09 Patient was seen for a total of [...] light available, needs met. Patient's nurse aware. [facility] BASIC MOBILITY Difficulty turning over in bed [...] A Little - Minimal/Contact Guard Assist/Superv ision [facility] Basic Mobility Total Score 22 *Note: all activity was not directly observed and scoring is based on skills and deficits d emonstrated today Interpretation of [facility] Short Form - Basic Mobility: CMS Modifier [...] activity recommendations were communicated verbally to patient's isas se for handoff communication. - Lights on and curtains open during day hours. - Up to chair for meals or 3x/day with 1 person Standby assist. - Routine ambulation 3x/day with 1 person standby assist. DISCHARGE: RECOMMENDATIONS: Home with assist PRN;Continued PT at next level of care DME: none AMIRA Rao Should this patient discharge from the hospital [...] of care. Trisha Mccullough PT, DPT Pager [phone] lan of Care - Josse banegas Nicole - 08/06/2019 9:22 AM PDT Problem: Nutrition Interventions Intervention: Food and nutrient distribution type or amount Note: Nutrition: Caloric Intake Analysis for 08/05/2019 47 Grams PROTEIN, 831 Calories. Figures represent foods eaten at 3 meals. Includes 80 ml of Premier Protein. Foods recorded as eaten in EPIC. Will continue to follow. Elizabeth Collins [facility] Tech [phone] andoff - Coleen Juan RN - 08/06/2019 4:48 AM PDTNursing Handoff Patient Daily Goal: walk today (08/04/19 0915) Patient Specific Preferences: tv/movies on (07/21/19 0800) [facility] IP NURSE HANDOFF: Tamez hospital course events: [...] he is no long er confused. 08/04 [employer] contacted -AMS - Liver transplant- on hold pending improved nutrition. andoff - Ra adry Edge RN - 08/05/2019 4:44 PM PDTNursing Handoff Patient Daily Goal: walk today (08/04/19 0915) Patient Specific Preferences: tv/movies on (07/21/19 0800) [facility] IP NURSE HANDOFF: Tamez hospital course events: [...] - Ambulate in halls TID. - Per nick RUDD/ red urine d/t home med Deferiprone Barriers to discharge: -New diagosis of DM. Will need diabetic education when he is no long er confused. 08/04 [employer] contacted - Liver transplant- is back on list lan of Care - Anna Marie guerrero, Tamika, RD - 08/05/2019 3:15 PM PDTFormatting of [...] moderate (orbital) Depletion of muscle mass: severe (baptist, shoulder, scapula, clavicle) Fluid accumulation: severe (ascites and significant edema in BLE at least to knee) Rec: - Continue Regular, 2 gm sodium diet with textures per RADIATION MONITOR/MD - Fluids per MD discretion - Continue [...] no fiber daily) Following, Tamika Banuelos RD [facility] Pager #[phone] Admitting Dx: Doug Lawson is a 54 [...] who was admitted as a transfer from [facility] after presenting there with AMS, [...] LDL, VLDL Lab Results Component Value Date [id number] 19.9 04/21/2019 Lab Results Component Value Date ZINC 31.0 04/23/2019 Ref. Range 04/23/2019 16:28 COPPER SERUM Latest Ref Range: 70.0 - 140.0 ug/dL 72.8 Lab Results Component Value Date A1C 8.1 (H) 07/17/2019 Ref. Range 04/23/2019 16:28 METHYLMALONIC ACID Latest Ref Range: 0.00 - 0.40 umol/L 0.34 CBG Result Av.8 Min: 174 Max: 406 LastCBG Intervention: Notified (Comment) (08/04/19602) Ht: 71" Current wt: 81.6 kg BMI: 25.1 kg/m2 Estimated needs: 0246-2984 kcal (25-30 kcal/kg) and 85-125 gm protein [...] Lawson is a 54 y/o with ESLD 2/ EtOH c/b hepatic encephalopathy, ascites, [...] or less = high risk of falling Http://www.[employer].com/journals/janthro/2014/315045/fig2/ (quick reference) Http://cs.[place]/csa/Research/documents/SPPBInstructions_ScoreSheet.pdf [facility] BASIC MOBILITY Difficulty turning over in bed [...] A Little - Minimal/Contact Guard Assist/Superv ision [facility] Basic Mobility Total Score 22 Interpretation of [facility] Short Form - Basic Mobility: CMS Modifier [...] be an underestimate Predicts discharge post hospitalization ([facility] raw score: 6-24) Home = 20.1 Home with home care = 17.9 senior care facility = 13.6 Inpatient rehabilitation facility = 13.6 terminal gauger care = 11.5 Ben Aguilar. The use of functional outcome measure in acute care to guide discharg e recommendations. J Acute Physiological Chemist. 2012;3(3):248. At end of session Pt supine [...] the discharge summary. lan of Care - Elise Denise - 08/05/2019 8:24 AM PDT Problem: Nutrition Interventions Intervention: Food and nutrient distribution type or amount Note: Nutrition: Caloric Intake Analysis for 08/04/2019 39 Grams PROTEIN, 574 Calories. Figures represent foods eaten at 2 meals. Breakfast intake not recorded. Includes 325 ml of Premier Protein. Foods recorded as eaten in EPIC. Will cont inue to follow. Elise Denise, Salesperson Men'S Hats [id number] andoff - Coleen Juan, RN - 08/05/2019 1:58 AM PDTNursing Handoff Patient Daily Goal: walk today (08/04/19 0915) Patient Specific Preferences: tv/movies on (07/21/19 0800) [facility] IP NURSE HANDOFF: [facility]z hospital course events: [...] he is no long er confused. 08/04 [employer] contacted -AMS - Liver transplant- on hold pending improved nutrition. andoff - Aleta Alejandra RN - 08/04/2019 6:43 PM PDTNursing Handoff Patient Daily Goal: walk today (08/04/19 0915) Patient Specific Preferences: tv/movies on (07/21/19 0800) [facility] IP NURSE HANDOFF: Tamez hospital course events: [...] he is no long er confused. 08/04 [employer] contacted -AMS - Liver transplant- on hold pending improved nutrition. andoff - Nicholas Roman RN - 08/03/2019 6:23 PM PDTNursing Handoff Patient Daily Goal: fall risk, skin intact (08/01/19 0843) Patient Specific Preferences: tv/movies on (07/21/19 0800) [facility] IP NURSE HANDOFF: Tamez hospital course events: [...] is no long er confused. - Contact [employer] when appropriate. -AMS - Liver transplant- on hold pending improved nutrition. lan of Care - Richard Barron, [facility]-RADIATION MONITOR - 08/03/2019 8:51 AM PDTFormatting of this note might be different fro m the original. Speech Language Pathology Treatment Time in: 08 Time out: 08 Pt was seen for [...] No overt s/sx aspiration noted. Pr evious RADIATION MONITOR recommendation was for min chew solids to help ease burden of mastication, mark yanes Pt now opting for regular menu. Recommend Pt continue with current diet as tolerated, opti ng for softer menu items. No further RADIATION MONITOR intervention recommended at this time. Please feel [...] tem p) DISCHARGE RECOMMENDATIONS: D/c acute care RADIATION MONITOR intervention -reconsult this service if there are further concerns re oropharyngeal dysphagia Richard Sinha MA, CCC-RADIATION MONITOR Speech-Language Pathologist Pager# [phone] signed by Richard Sinha CCC-RADIATION MONITOR at 08/03/2019 8:57 AM PDTHand off - Graciela Scherer RN - 08/03/2019 5:42 AM PDTNursing Handoff Patient Daily Goal: fall risk, skin intact (08/01/19 0843) Patient Specific Preferences: tv/movies on (07/21/19 0800) [facility] IP NURSE HANDOFF: Tamez hospital course events: [...] is no long er confused. - Contact [employer] when appropriate. -AMS - Liver transplant- Listed. andoff - Dwight Roman RN - 08/02/2019 2:56 PM PDTNursing Handoff Patient Daily Goal: fall risk, skin intact (08/01/19 0843) Patient Specific Preferences: tv/movies on (07/21/19 0800) [facility] IP NURSE HANDOFF: [facility]z hospital course events: [...] is no long er confused. - Contact [employer] when appropriate. -AMS - Liver transplant- Listed. [...] EPIC. Calorie count complete. Meagan Lim DTR [id number] andoff - Alfreda Prado RN - 08/02/2019 4:44 AM PDTNursing Handoff Patient Daily Goal: fall risk, skin intact (08/01/19 0843) Patient Specific Preferences: tv/movies on (07/21/19 0800) [facility] IP NURSE HANDOFF: Tamez hospital course events: [...] acidosis -AMS - Liver transplant? lan of Ramila - Meagan Lim - 08/01/2019 8:42 AM [...] Will continue to follow. Meagan Lim DTR [id number] andoff - Alfreda Prado, RN - 08/01/2019 2:22 AM PDTNursing Handoff Patient Daily Goal: fall risk, skin care, nutriition support. (07/31/19 0851) Patient Specific Preferences: tv/movies on (07/21/19 0800) [facility] IP NURSE HANDOFF: Tamez hospital course events: [...] transplant? lan of Care - Ami Bennett CCC-RADIATION MONITOR - 07/31/2019 2:50 PM PDTFormatting of this note might be different from t nicolasa original. Speech Language Pathology Treatment Time in: [...] ease burden of oral bolus preparation. From RADIATION MONITOR perspective, if patient requests to be changed back to la chanical soft/regular menu that would be ok. [...] at next level of care Continue per RADIATION MONITOR POC Ami Bennett MS CCC-RADIATION MONITOR Speech Language Pathologist Pgr [phone] lan of Care - [facility], January, RD - 07/31/2019 10:05 AM PDT [...] moderate (orbital) Depletion of muscle mass: severe (baptist, shoulder, scapula, clavicle) Fluid accumulation: severe (ascites and significant edema in BLE at least to knee) Rec: - Liberalize diet as feasible to promote intake; textures per RADIATION MONITOR/MD - Continue calorie count & Premier Protein [...] and no fiber daily) Following, January Vin [facility] Pager #[phone] Admitting Dx: Doug Lawson is a 54 [...] who was admitted as a transfer from [facility] after presenting there with AMS, [...] LDL, VLDL Lab Results Component Value Date [id number] 19.9 04/21/2019 Lab Results Component Value Date ZINC 31.0 04/23/2019 Ref. Range 04/23/2019 16:28 COPPER SERUM Latest Ref Range: 70.0 - 140.0 ug/dL 72.8 Lab Results Component Value Date A1C 8.1 (H) 07/17/2019 Ref. Range 04/23/2019 16:28 METHYLMALONIC ACID Latest Ref Range: 0.00 - 0.40 umol/L 0.34 CBG Result Av.8 Min: 187 Max: 233 LastCBG Intervention: Medication given (07/30/19 0513) Ht: 71" Current wt: 81.6 kg BMI: 25.1 kg/m2 Estimated needs: 6861-4282 kcal (25-30 kcal/kg) and 85-125 gm protein [...] Will continue to follow. Meagan Lim DTR [id number] andoff - Dipesh Hendrix RN - 07/31/2019 7:10 AM PDTNursing Handoff Patient Daily Goal: RN advocacy: Pt will ambulate in hallway 2x this shift (07/30/19 0855) Patient Specific Preferences: tv/movies on (07/21/19 0800) [facility] IP NURSE HANDOFF: Tamez hospital course events: [...] Patient Specific Preferences: tv/movies on (07/21/19 0800) [facility] IP NURSE HANDOFF: Tamez hospital course events: [...] pearson within reach and RN was notified [facility] BASIC MOBILITY Difficulty turning over in bed [...] A Little - Minimal/Contact Guard Assist/Superv ision [facility] Basic Mobility Total Score 18 Assessment: Patient [...] activities to meet his goals. Interpretation of [facility] Short Form - Basic Mobility: CMS Modifier [...] as the discharge summary. Shirley Ochoa PT #[id number] signed by Shirley Ochoa PT at 07/30/2019 5:53 PM PDTPlan of Care - Ami Huitron, [facility]-RADIATION MONITOR - 07/30/2019 10:42 AM PDTFormatting of this [...] up assistance and intermittent supervision with po philip eduardo. Swallowing - LEVEL 6: Swallowing is safe, [...] at next level of care Continue per RADIATION MONITOR POC Ami Bennett MS [facility]-RADIATION MONITOR Speech Language Pathologist Pgr [phone] andoff - Federico Sloan RN - 07/30/2019 5:21 AM PDTNursing Handoff Patient Daily Goal: go for a walk (07/29/19799) Patient Specific Preferences: tv/movies on (07/21/19799) [facility] IP NURSE HANDOFF: Tamez hospital course events: [...] pearson within reach and RN was notified [facility] BASIC MOBILITY Difficulty turning over in bed [...] A Little - Minimal/Contact Guard Assist/Superv ision [facility] Basic Mobility Total Score 18 Assessment: Patient [...] activities to meet his goals. Interpretation of [facility] Short Form - Basic Mobility: CMS Modifier [...] Next visit: gait training Shirley Ochoa, PT #[id number] signed by Shirley Ochoa PT at 07/29/2019 7:13 PM PDTPlan of Care - R Tayler elizabeth MS,CCC-RADIATION MONITOR - 07/29/2019 4:31 PM PDTSpeech-Language Pathologist Attempt: [...] follow per established POC. 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 - Lights on. Curtains open. Activity [...] Liver transplant? lan of Care - Glenis Patton CCC-RADIATION MONITOR - 07/28/2019 3:54 PM PDT [id number] DOUG LAWSON Date of : 1965 Start of care: 07/17/2019 Date of onset: 07/28/19 Referring/Attending Practitioner: Des Gamez MD Primary/Referral Diagnosis/ICD-9: K70.31 Alcoholic cirrhosis of liver with ascites (HCC) I47.1 SVT (supraventricular tachycardia) (HCC) Insurance: Payor: [facility] MEDICAID / Plan: [facility] [place] / Product Type: Medicaid / Service period from:07/28/19 to:08/27/2019 (30 day period). Speech Language Pathology - DYSPHAGIA Evaluation Medical Course: " a 54 y/owith ESLD / EtOH c/b hepatic encephalopathy, a scites, spur [...] 5x/week. D/W Patient's Registered Nurse Glenis Patel., CCC-RADIATION MONITOR Speech Language Pathologist Pager #[phone] lan of Care - Elizabeth Hickey, RD [...] Depletion of fat stores:moderate(orbital) Depletion of muscle mass:severe(baptist, shoulder, scapula, clavicle) Fluid accumulation:severe(ascites and significant edema in BLE at least to knee) Following, Elizabeth Marshall, MS, RD, LD, CNSC Pager #: [phone] Note: Admitting Dx: Doug Lawson is a [...] who was admitted as a transfer from [facility] after presenting there with AMS, [...] 03/18/19 83.5 kg (184 lb) Estimated needs: 5905-7396 kcal (25-30 kcal/kg) and 82-123 gm protein (1-1.5 gm/kg)Rosalind martin signed by Elizabeth Marshall RD at 07/28/2019 9:11 AM PDTHandoff - Mirian Kennedy RN - 07/28/2019 2:16 AM PDTNursing Handoff Patient Daily Goal: RN Advocacy: 2 BM this shift (07/27/191940) [facility] IP NURSE HANDOFF: Tamez hospital course events: [...] Liver transplant? lan of Care - Martha Weller, OT - 07/27/2019 3:25 PM PDT Occupational therapy treatment note: [id number] DOUG LAWSON Date of : 1965 Start of care: 07/17/2019 Date of onset: 07/17/2019 Referring/Attending Practitioner: Des Gamez MD Primary/Referral Diagnosis/ICD-9: K70.31 Alcoholic cirrhosis of liver with ascites (HCC) I47.1 SVT (supraventricular tachycardia) (HCC) Insurance: Payor: [employer] MEDICAID / Plan[place] [employer] [place] / Product Type: Medicaid / 07/27/2019 [...] in bed, bed alarm activated, RN aware. [facility] daily activity assessment [facility] DAILY ACTIVITY - How much help from another person does the patient currently need f or: Lower body dressing 2 - Alot Bathing 2 - Alot Toileting 2 - Alot Upper body dressing 3 - Little Personal grooming 3 - Little Eating meals 3 - Little [facility] Daily Activity Total Score 15 1 - Unable to do/total assistance = Total/Dependent Assist 2 - A lot = Maximum/Moderate Assistance 3 - A little = Minimal/Contact Guard Assist/Supervision 4 None = Modified independent/Independent Interpretation of [facility] Short Form Daily Activity: CMS Modifier (G-Code) [...] P M PDTPlan of Care - Shannan Green PT - 07/27/2019 11:22 AM PDTFormatting of [...] Patient stays very close to edge of jordan with furn iture, etc despite frequent ceing [...] eaten in EPIC. Calorie count complete. Elise Denise, Salesperson Men'S Hats [id number] andoff - Maryanne Umana RN - 07/26/2019 11:31 PM PDTNursing Handoff Patient Daily Goal: Will increase PO intake (07/26/19 0835) Patient Specific Preferences: tv/movies on (07/21/19 0800) [facility] IP NURSE HANDOFF: Tamez hospital course events: [...] continue to follow, Nisreen Abad RD, LD, [facility] Pager # [phone] andoff - Ervin Lake RN - 07/26/2019 1:57 PM PDTNursing Handoff Patient Daily Goal: Will increase PO intake (07/26/19 0835) Patient Specific Preferences: tv/movies on (07/21/19 0800) [facility] IP NURSE HANDOFF: Tamez hospital course events: [...] be confused. Oriented to self and place ("[place], [place]") only. Ongoi ng lethargy. Minimal engagement [...] Will continue to follow. Meagan Lim DTR [id number] andoff - Maryanne Umana RN - 07/25/2019 [...] with MELD 34 who was transferred from [facility] with AMS and new onset hyperglycemia, trauma [...] with MELD 34 who was transferred from [facility] with AMS and new onset hyperglycemia, trauma [...] lack of sleep and trigger by mary almita who also has delirium Activity level: SBA [...] transplant until cardiac stabilization. Placement? lan of Jr Nolan - 07/25/2019 9:27 AM PDT Problem: Nutrition Interventions Intervention: Food and nutrient distribution type or amount Note: Nutrition: Caloric Intake Analysis for 07/24/2019 71 Grams PROTEIN, 630 Calories. Figures represent foods eaten at 3 meals, and 3 snacks. Inc ludes 606 ml of Premier Protein. Foods recorded as eaten in EPIC. Will continue to follow. Meagan Lim DTR [id number] andoff - Polly Fitzgerald RN - 07/25/2019 4:45 AM PDTNursing Handoff [place] IP NURSE HANDOFF: Tamez hospital course events: PMH: alcoholic cirrhosis and alcoholic h epatitis complicated by ascites, leg edema, spur cell adenoma, and secondary iron overload l isted for liver transplant with MELD 34 who was transferred from [facility] with AMS and new onset hyperglycemia, trauma [...] stabilization. Placement? lan of Care - Laz Soto res OT - 07/24/2019 2:20 PM PDTFormatting of this note might be different from the o riginal. Occupational Therapy Evaluation [id number] DOUG CHAN LAWSON Date of : 1965 Start of care: 07/17/2019 Date of onset: 07/17/2019 Referring/Attending Practitioner: Des Gamez MD Primary/Referral Diagnosis/ICD-9: K70.31 Alcoholic cirrhosis of liver with ascites (HCC) I47.1 SVT (supraventricular tachycardia) (HCC) Insurance: Payor: [employer] MEDICAID / Plan: [facility] [place] / Product Type: Medicaid / Service [...] ns to discharge to aunts house in [place]. House is 1 floor, 1 step to [...] Mod A, Sitting to supine Max A [facility] daily activity assessment [facility] DAILY ACTIVITY - How much help from another person does the patient currently need f or: Lower body dressing 2 - Alot Bathing 2 - Alot Toileting 2 - Alot Upper body dressing 3 - Little Personal grooming 3 - Little Eating meals 3 - Little [facility] Daily Activity Total Score 15 1 - Unable to do/total assistance = Total/Dependent Assist 2 - A lot = Maximum/Moderate Assistance 3 - A little = Minimal/Contact Guard Assist/Supervision 4 None = Modified independent/Independent Interpretation of [facility] Short Form Daily Activity: CMS Modifier (G-Code) [...] will complete LB dressing for socks with [place] ACTIVITY/ENVIRONMENTAL RECOMMENDATIONS: *Nursing to re-assess per shift [...] within reach, bed alar m in place. [facility] BASIC MOBILITY Difficulty turning over in bed [...] A Little - Minimal/Contact Guard Assist/Superv ision [facility] Basic Mobility Total Score 18 Interpretation of [facility] Short Form - Basic Mobility: CMS Modifier [...] limited, or restricted Predicts discharge post hospitalization ([facility] raw score: 6-24) Home = 20.1 Home with home care = 17.9 senior care facility = 13.6 Inpatient rehabilitation facility = 13.6 terminal gauger care = 11.5 Ben Aguilar. The use of functional outcome measure in acute care to guide discharg e recommendations. J Acute Physiological Chemist. 2012;3(3):248. Assessment: Patient is currently listed status 7 for liver transplant, transferred out of [facility], presents with hepatic encephalopathy with fluctuating [...] with MELD 34 who was transferred from [facility] with AMS and new onset hyperglycemia, trauma [...] stabilization. Placement? lan of Care - Geno Harmon, JAYDE - 07/23/2019 7:43 PM PDTI have reviewed [...] with MELD 34 who was transferred from [facility] with AMS and new onset hyperglycemia, trauma [...] an ECG (A-Tach, R Bundle Branch Block). ANIMAL HERDER RN came to deliver IV metoprolol 5mg [...] moderate (orbital) Depletion of muscle mass: severe (baptist, shoulder, scapula, clavicle) Fluid accumulation: severe (ascites and significant edema in BLE at least to knee) Goal of nutrition care: PO intake to meet at least 75% kcal and protein needs, preserve jeny n body mass, and maintain weight Following, Anh Thornton, MS, RD, LD, [facility] Clinical Dietitian Pager # [phone] Nutrition Assessment: Admitting Dx: Doug Lawson is [...] who was admitted as a transfer from [facility] after presenting there with AMS, [...] 03/18/19 83.5 kg (184 lb) Estimated needs: 2878-4483 kcal (25-30 kcal/kg) and 82-123 gm protein (1-1.5 gm/kg) ignificant Event - Sonia Bee RN - 07/23/2019 10:22 AM PDTSummary: Unit: [address] [place] [address] (07/23/19926) Room #: 7-2 (07/23/19926) Time Called: 926 (07/23/19926) Time Ended: 1025 (07/23/19926) Recommendations / Interventions: Primary Reason for Call: Med Administration (07/23/19926) Other Reason for Call: Med Administration;HR High (07/23/19926) Interventions: 12 Lead EKG;EKG Monitoring;NIBP Monitoring;SpO2 Monitoring;Medication Admini stration (07/23/19926) ANIMAL HERDER Medications: Metoprolol IV (07/23/19926) Situation: Situation: called [...] for detailed assessment Cecille Keller RD Pgr #[phone] andoff - Kenneth Zuñiga RN - 07/22/2019 3:52 PM PDTNursing Handoff Patient Daily Goal: Transfer out of ICU. (07/22/19799) Patient Specific Preferences: tv/movies on (07/21/19799) [facility] IP NURSE HANDOFF: Tamez hospital course events: PMH: alcoholic cirrhosis and alcoholic h epatitis complicated by ascites, leg edema, spur cell adenoma, and secondary iron overload l isted for liver transplant with MELD 34 who was transferred from [facility] with AMS and new onset hyperglycemia, trauma [...] needs to stay inp atient through transplant. Angie Jade RN - 07/22/2019 1:49 PM PDTNursing Handoff Patient Daily Goal: Transfer out of ICU. (07/22/19 0800) Patient Specific Preferences: tv/movies on (07/21/19 0800) [facility] IP NURSE HANDOFF: Tamez hospital course events: PMH: alcoholic cirrhosis and alcoholic h epatitis complicated by ascites, leg edema, spur cell adenoma, and secondary iron overload l isted for liver transplant with MELD 34 who was transferred from [facility] with AMS and new onset hyperglycemia, trauma [...] telemetry and transfer to floor when able! Juani Mclaughlin RN - 07/22/2019 6:18 AM PDTNursing Handoff Patient Daily Goal: 3-5 bms, eat (07/21/19799) Patient Specific Preferences: tv/movies on (07/21/19799) [facility] IP NURSE HANDOFF: Tamez hospital course events: PMH: alcoholic cirrhosis and alcoholic h epatitis complicated by ascites, leg edema, spur cell adenoma, and secondary iron overload l isted for liver transplant with MELD 34 who was transferred from [facility] with AMS and new onset hyperglycemia, trauma [...] transfer to floor when able! lan of [facility] - Cecille Keller, RD - 07/21/2019 4:55 PM PDT Problem: [...] moderate (orbital) Depletion of muscle mass: severe (baptist, shoulder, scapula, clavicle) Fluid accumulation: severe (ascites and significant edema in BLE at least to knee) Following, see RD note 07/20 for detailed assessment Cecille Keller RD Pgr #[phone] lan [facility] 07/21/2019 10:06 AM PDTFormatting of this note might be different from the orig inal. Physical Therapy Evaluation and Treatment [id number] DOUG LAWSON 07/21/2019 10:06 AM Admitted on 07/17/2019 6:13 PM, hospital day # 4 Time in: 919 Time out: 1000 Patient was seen for a total of 40 minutes of direct one on one skilled physical therapy wh ich included 23 minutes of therapeutic activity. Date of : 1965 Start of care: 07/21/2019 Attending Practitioner: Antione Talbot MD Primary/Referral Diagnosis/ICD-9: K70.31 Alcoholic cirrhosis of liver with ascites (HCC) I47.1 SVT (supraventricular tachycardia) (HCC) Insurance: Payor: [facility] MEDICAID / Plan: [facility] [place] / Product Type: Medicaid / Service period from: 07/21/2019 to 10/19/2019 Referral Source: Ordering Provider Electronically Authorized/Signed By Name MD Chriss Mendez MD [phone] Patient seen on 7a MICU Others Present for PT session besides patient and therapist: nurse during commode to bed indiana kapoor Brief Hospital Course: Doug Lawson is a 54 year [...] Patient / Family Goal: use commode Communication/Barriers: afghan Subjective/Patient knowledge of problem: fair Pain: Right [...] challenge or move without loss of balance Gualberto Gutierrez and Pamela Garcia (2007). Physical rehabilitation: assessment and treatme nt (5th ed.). [employer]: [employer]. p.254 Mobility: (NA=not assessed) Rolling [...] Ronna Small 1,2, Chan Koehler 1, Vitaliy rC 1,3,4, Una Coombs 4, Sun rush 5, Ina Giles 3, Carola Hernandez 6,7, Beti Mejia 2,8, Corine Neely 1, Isaiah henley 9,10,11, Cortez Elizondo 12, Candelario Grimaldo 13, Cory Dailey 14,15,16, Jody Ortega er 3,17,18, Bakari Davidson 7,19, Erich Man 20,21, Sonia Ortega 12, and Meera Zelaya 1,2 November 24, 2015 [facility] BASIC MOBILITY Difficulty turning over in bed [...] to do/total assistance - Total/Dependen t Assist [facility] Basic Mobility Total Score 14 Interpretation of [facility] Short Form - Basic Mobility: CMS Modifier [...] same with assistance as above. Tamica Chirinos, [id number] The above plan of care and goals were developed and reviewed with patient and nurse. Should this patient discharge from the hospital prior to the next physical therapy treatmen t, this note shall serve as the discharge summary. lan of Ramila - Trisha Hopson RD - 07/20/2019 11:49 AM PDT Problem: Nutrition Interventions Intervention: Food and nutrient distribution type or amount Note: Pt with inadequate oral intake d/t appetite/mental status changes as shown by pt with minim al intake at this time Continue with Reg diet Encourage PO as tolerated Offer supplements PRN Following Trisha Hopson RD, PACKAGING DESIGNER, LD Pager [phone] Doug Lawson is a 54 y.o. male [...] was a dmitted as a transfer from [facility] after presenting there with AMS, R knee trauma due to a fall, hyperglycemia, renal insufficiency Diet order:Reg PO Intake:50% x 1 with 1600 ml Ht 71" Wt 82kg BMI 25kg/m2 Est Needs: 4161-4205 kcal (25-30 kcal/kg) and 82-123 gm protein (1-1.5 gm/kg) andoff - Dacia Livingston RN - 07/19/2019 6:37 PM PDTNursing Handoff Patient Daily Goal: to eat a full meal (07/18/191999) [facility] IP NURSE HANDOFF: Tamez hospital course events: [...] family is wanting to move him to [place]. ransfer Note - Hamilton modi, Jovany Gomez [...] RN - 07/18/2019 5:45 PM PDTNursing Handoff [facility] IP NURSE HANDOFF: Tamez hospital course events: [...] 07/18/2019 7:21 AM PDTSummary: Unit: 4A TRANS/URO/PL (07/18/19630) Room #: 08 (07/18/19630) Time Called: 0450 (07/18/19630) Time Ended: 06 (07/18/19630) Recommendations / Interventions: Primary Reason for [...] 07/18/2019 7:00 AM PDTApprox 0450 acti vated ANIMAL HERDER for SVT per tele with HR in the 160s and BPs at this time were 80s/50s. Pt has a h x of SVT during stress test for liver transplant workup and was started on Metop; though, un known last dose. ANIMAL HERDER RN, primary team and Cardiology came to [...] ut incident. Dr. Montanez to update pt's CHEYANNE, Doreen. ignificant Event - Rojas Cantu MD - 07/18/2019 6:53 AM PDTPt had episode of SVT into 160s. Nurse paged around 4a m with this finding and that she was calling an ANIMAL HERDER. We arrived at bedside w/ANIMAL HERDER. Carotid si nus massage and modified valsalva [...] MD, MPH Department of Medicine, PGY-1 Pager: [phone] ignificant Event - [facility] Rogelio wang RN - 07/18/2019 5:31 AM PDTSummary: Unit: 4A TRANS/URO/PL (07/18/19514) Room #: 8 (07/18/19514) Time Called: 0450 (07/18/19514) Time Ended: 519 (07/18/19514) Recommendations / Interventions: Primary Reason for Call: HR High (07/18/19514) Interventions: 12 Lead EKG (07/18/19514) Situation: Situation: Called to bedside for tachycardia, MD and cards to bedside, pt. spontaneously co [...] 2019 | cheduled | | [address] | | | | | | [address] | | | | | | [place], [place] | | | | | | [address] | | | | | | [phone] | | | | | | | | +--------+ + + + + | 09/27/ | Telephone-S | Liver Transplant | Vimal Crwoe MD | | | 2019 | [place] | | [address] | | | | | | [address], | | | | | | [place] [address] | | | | | | [phone] | | | | | | | | +--------+ + + + + | 10/03/ | Appointment | Cardiology | | | | 2019 | | | | | +--------+ + + + + | 10/03/ | Office | Cardiology | Cyril Samuel | | | 2020 | Visit | | MD Patricia [address] | | | | | | [address] | | | | | | [place], [place] | | | | | | [address] | | | | | | [phone] | | | | | | | [...] | Leonora Camargo | e | | discontinued, 1 | | | Performable | | | completed | | | s | | | | + + +--------+ + + | DIFFERENTIAL, ADD ON | Lab - | Routin | | 07/28/2019 until | | | [facility] | e | | discontinued, 1 | | | Performable | | | completed | | | s | | | | + + +--------+ + + | DIFFERENTIAL, ADD ON | Lab - | Routin | | 07/30/2019 until | | | [facility] | [...] | | 08/16/2019 until | | | [facility] | | | discontinued, 1 | | | Performable | | | completed | | | s | | | | + + +--------+ + + | RBC MORPHOLOGY | Lab - | Routin | | 08/16/2019 until | | | [facility] | [...] + +--------+ + + + | NON SLIP COVER ESTIMATOR CYTOLOGY | Routin | 08/16/2019 | | [...] [facility] | [address] | [place], [place] | | | MARIA INES POINT OF CARE | [address] | [address] | | | TESTS | | | [...] - ZULEIKA | [address] | [place], [place] | | | [facility] POINT OF CARE | [address] | [address] | | | TESTS | | | [...] | + + + + + | [facility] | [address] | [place] [address] | | | SERVICES, CORE | PARK [...] | + + + + + | [facility] | [address] [facility] | [place] [address] | | | SERVICES, CORE | MOISES [...] + | Test performed by immunoassay using [employer] i2000. . | [facility] | | Samples [...] + + + + + | [facility] | [address] | [place] [address] | | | SPECIAL CLAUDIA | MOISES [...] [facility] | [address] | [place] [address] | | | SERVICES, CORE | PARK [...] | + + + + + | [facility] | [address] | [place] [address] | | | SERVICES, CORE | MOISES [...] [facility] | [address] | [place] [address] | | | SERVICES, CORE | PARK [...] [facility] | [address] | [place] [address] | | | SERVICES, CORE | PARK [...] MDRD equation recommended by the National | [facility] | | Kidney Disease Education Program. Estimated [...] | + + + + + | [facility] | [address] | [place] [address] | | | SERVICES, CORE | MOISES [...] [facility] | [address] | [place], [place] | | | HALLEY SPANN OF CARE | [address] | [address] | | | TESTS | | | [...] [facility] | [address] | [place], [place] | | | HALLEY SPANN OF CARE | [facility] | [address] | | | TESTS | | | [...] (H) | 70 - 99 mg/dL | [facility] - | | | GLUCOSE, | | [...] TO | [address] | [place], [place] | | | HALLEY SPANN OF CARE | [address] | [address] | | | TESTS | | | [...] [facility] | [address] | [place], [place] | | | HALLEY SPANN OF CARE | [address] | [address] | | | TESTS | | | [...] [facility] | [address] | [place] [address] | | | SERVICES, CORE | MOISES [...] (H) | 0.90 - 1.20 INR | [facility] | | | | | | LABORATORY [...] + + + + + | [facility] | [address] | [place] [address] | | | ARTIS TAYLOR | [address] | | | + + + + + TACROLIMUS, WHOLE BLOOD (08/28/2019 5:36 AM PST) + + + + + + | Component | Value | Ref Range | Performed | Pathologist | | | | | At | Signature | + + + + + + | TACROLIMUS | 6.0Comment: Begin POD #1 | 5.0 - 15.0 [...] | Test performed by immunoassay using Palafox Track Announcer i2000. . | [facility] | | Samples [...] [facility] | [address] | [place] [address] | | | SERVICES, SPECIAL | PARK [...] | + + + + + | [facility] | [address] | [place] [address] | | | SERVICES, CORE | MOISES [...] [facility] | [address] | [place] [address] | | | SERVICES, CORE | PARK [...] | + + + + + | [facility] | [address] | [place] [address] | | | SERVICES, CORE | MOISES [...] [facility] | [address] | [place] [address] | | | CLAUDIA, ARTIS | PARK [...] equation recommended by the National | [facility] | | Kidney Disease [...] + + + + + | [facility] | [address] | [place] [address] | | | ARTIS TAYLOR | MOISES [...] (H) | 70 - 99 mg/dL | [facility] - | | | GLUCOSE, | | [...] [facility] | [address] | [place], [place] | | | HALLEY SPANN OF RAMILA | [facility] | [address] | | | TESTS | | | [...] TO | [address] | [place], [place] | | | MARIA INES POINT OF CARE | [address] | [address] | | | TESTS | | | [...] + + | [facility] | [address] | [place], [place] | | | HALLEY SPANN OF RAMILA | [facility] | [address] | | | TESTS | | | [...] (H) | 70 - 99 mg/dL | [facility] - | | | GLUCOSE, | | [...] JJ[facility] | [address] | [place], [place] | | | HALLEY SPANN OF CARE | [address] | [address] | | | TESTS | | | [...] | + + + + + | [facility] | [address] | [place] [address] | | | SERVICES, CORE | MOISES [...] [facility] | [address] | [place] [address] | | | SERVICES, CORE | MOISES [...] + | [facility] | [address] | [place] [address] | | | [place] | | | [...] | Test performed by immunoassay using Palafox Track Announcer i2000. . | [facility] | | Samples [...] + + + + + | [facility] | [address] | [place] [address] | | | SERVICES, SPECIAL | PARK [...] | + + + + + | [facility] | [address] | [place] [address] | | | SERVICES, CORE | MOISES [...] [facility] | [address] | [place] [address] | | | SERVICES, CORE | MOISES [...] [facility] | [address] | [place] [address] | | | SERVICES, CORE | MOISES [...] | + + + + + | [facility] | [address] [facility] | [place] [address] | | | SERVICES, CORE | MOISES [...] | + + + + + | [facility] | [address] | [place] [address] | | | ARTIS TAYLOR | PARK [...] [facility] | [address] | [place], [place] | | | HALLEY SPANN OF CARE | [address] | [address] | | | TESTS | | | [...] TO | [address] | [place], [place] | | | MARIA INES POINT OF CARE | [address] | [address] | | | TESTS | | | [...] [facility] | [address] | [place], [place] | | | HALLEY SPANN OF CARE | [address] | [address] | | | TESTS | | | | + + + + + IR TUNNELED CENTRAL LINE PLACEMENT (08/26/2019 9:12 AM PST) + + | Specimen | + + | | + + + + + | Narrative | Performed At | + + + | Procedure: Left Chest Tunneled Dialysis Catheter Placement | [facility] | | Primary conference services coordinator: Rich Mena MD Boiler Operators Supervisor attending | RADIOLOGY VOICE | | conference services coordinator: Kannan Pizano MD Preoperative diagnosis: Acute on [...] | administered by the dedicated RN. Intra-service ymmj-jz-jlys time: 75 | | | minutes Versed 2 mg [id number] mcg Findings: US | | | demonstrated [...] | Procedure Note | + + | Keyla Julian, Radiant Res In Interface - 08/26/2019 2:33 PM [facility] Procedure: Left | | Chest Tunneled Dialysis Catheter Placement Primary conference services coordinator: Rich Mena MD | | Boiler Operators Supervisor attending conference services coordinator: Kannan Pizano MD Preoperative diagnosis: Acute on [...] | | administered by the dedicated RN.Intra-service ypjc-dr-vtuo time: 75 minutesVersed 2 | | [id number] mcg Findings: US demonstrated the left internal [...] Pizano MD 08/26/2019 2:23 PM | |Intra-service jkub-lt-emly time: 75 minutes | |Versed 2 mg | |[id number] mcg | | | |Findings: | | [...] CAPILLARY BLOOD GLUCOSE (NO CHG), POC (08/26/2019 7:42 AM PST) + +---------+ + [...] [facility] | [address] | [place], [place] | | | HALLEY SPANN OF CARE | [address] | [address] | | | TESTS | | | [...] | + + + + + | [facility] | [address] | [place] [address] | | | SERVICES, CORE | MOISES [...] (H) | 0.90 - 1.20 INR | [facility] | | | | | | LABORATORY [...] + + + + + | [facility] | [address] | [place] [address] | | | SERVICES, CORE | MOISES [...] | Test performed by immunoassay using Palafox Track Announcer i2000. . | [facility] | | Samples [...] + + + + + | [facility] [facility] | [address] | [place] [address] | | | SERVICES, SPECIAL | MOISES [...] | + + + + + | [facility] | [address] | [place] [address] | | | CLAUDIA, ARTIS | MOISES [...] [facility] | [address] | [place] [address] | | | SERVICES, CORE | PARK [...] | + + + + + | [facility] | [address] | [place] [address] | | | SERVICES, CORE | [address] | | | + + + + + MAGNESIUM, PLASMA (08/26/2019 6:12 AM PST) + +-------+ + + + | Component | Value | Ref Range | Performed | Pathologist | | | | | At | Signature | + +-------+ + + + | MAGNESIUM,P | 2.0 | 1.6 - 2.6 mg/dL | [facility] [...] [facility] | [address] | [place] [address] | | | ARTIS TAYLOR | MOISES [...] equation recommended by the National | [facility] | | Kidney Disease [...] | + + + + + | [facility] | [address] | [place] [address] | | | CLAUDIA, ARTIS | MOISES [...] [facility] | [address] | [place], [place] | | | HAL[facility] SPANN OF CARE | [address] | [address] | | | TESTS | | | [...] - [facility] | [address] | [place], [place] | | | HAL[facility] SPANN OF CARE | [address] | [address] | | | TESTS | | | [...] TO | [address] | [place], [place] | | | HALLEY SPANN OF [place] | [address] | [address] | | | TESTS | | | [...] [facility] | [address] | [place], [place] | | | HALLEY SPANN OF CARE | [address] | [address] | | | TESTS | | | [...] [facility] | [address] | [place] [address] | | | SERVICES, CORE | MOISES [...] + + + + + | [facility] | [address] | [place] [address] | | | SERVICES, CORE | PARK [...] | Test performed by immunoassay using Palafox Track Announcer i2000. . | [facility] | | Samples [...] | + + + + + | [facility] | [address] | [place] [address] | | | SERVICES, SPECIAL | PARK [...] + + + + + | [facility] | [address] | [place] [address] | | | SERVICES, CORE | PARK [...] LABORATORY | [address] | [place] [address] | | | SERVICES, CORE | PARK [...] | + + + + + | [facility] | [address] | [place] [address] | | | SERVICES, CORE | MOISES [...] [facility] | [address] | [place] [address] | | | SERVICES, CORE | PARK [...] equation recommended by the National | [facility] | | Kidney Disease [...] [facility] | [address] | [place] [address] | | | SERVICES, CORE | PARK [...] | + + + + + | [facility] | [address] [facility] | [place] [address] | | | SERVICES, CORE | MOISES [...] | + + + + + | [facility] | [address] | [place] [address] | | | SERVICES, | [address] [...] + + | [facility] | [address] [facility] | [place] [address] | | | SERVICES, | [address] [...] [facility] | [address] | [place] [address] | | | CLAUDIA, ARTIS | MOISES [...] + + + + | [facility] | [address] | [place], [place] | | | MARIA INES POINT OF CARE | [address] | [address] | | | TESTS | | | [...] (H) | 70 - 99 mg/dL | [facility] - | | | GLUCOSE, | | [...] TO | [address] | [place], [place] | | | [facility] SPANN [facility] | [facility] | [address] | | | TESTS | | | [...] [facility] | [address] | [place], [place] | | | HALLEY SPANN OF [place] | [address] | [address] | | | TESTS | | | [...] ZULEIKA | [address] | [place], [place] | | | HALLEY SPANN OF CARE | [address] | [address] | | | TESTS | | | [...] (H) | 70 - 99 mg/dL | [facility] - | | | GLUCOSE, | | [...] TO | [address] | [place], [place] | | | MARIA INES POINT OF CARE | [address] | [address] | | | TESTS | | | [...] [facility] | [address] | [place], [place] | | | HAL[facility] SPANN OF CARE | [address] | [address] | | | TESTS | | | [...] [facility] | [address] | [place] [address] | | | SERVICES, CORE | MOISES [...] (H) | 0.90 - 1.20 INR | [facility] | | | | | [...] | + + + + + | [facility] | [address] | [place] [address] | | | ARTIS TAYLOR | MOISES [...] | + + + + + | [facility] | [address] | [place] [address] | | | [place] | | | [...] | Test performed by immunoassay using Palafox Track Announcer i2000. . | [facility] | | Samples [...] | + + + + + | [facility] | [address] | [place] [address] | | | SERVICES, SPECIAL | MOISES [...] [facility] | [address] | [place] [address] | | | SERVICES, CORE | PARK [...] | + + + + + | [facility] | [address] | [place] [address] | | | SERVICES, CORE | MOISES [...] | + + + + + | [facility] | [address] | [place] [address] | | | SERVICES, CORE | PARK [...] | + + + + + | [facility] | [address] | [place] [address] | | | SERVICES, CORE | MOISES [...] equation recommended by the National | [facility] | | Kidney Disease [...] + + + + + | [facility] | [address] | [place] [address] | | | SERVICES, ARTIS | MOISES [...] TO | [address] | [place], [place] | | | MARIA INES POINT OF CARE | [address] | [address] | | | TESTS | | | [...] [facility] | [address] | [place], [place] | | | [facility] SPANN [facility] | [address] | [address] | | | TESTS | | | [...] (H) | 70 - 99 mg/dL | [facility] - | | | GLUCOSE, | | [...] [facility] | [address] | [place], [place] | | | HAL[facility] SPANN OF [place] | [facility] | [address] | | | TESTS | | | [...] TO | [address] | [place], [place] | | | HAL[facility] SPANN OF [place] | [facility] | [address] | | | TESTS | | | [...] [facility] | [address] | [place], [place] | | | MARIA INES POINT OF CARE | [facility] | [address] | | | TESTS | | | [...] [facility] | [address] | [place] [address] | | | SERVICES, CORE | MOISES [...] | Test performed by immunoassay using Palafox Track Announcer i2000. . | [facility] | | Samples [...] | + + + + + | [facility] | [address] | [place] [address] | | | SERVICES, SPECIAL | PARK [...] [facility] | [address] | [place] [address] | | | SERVICES, CORE | PARK [...] [facility] | [address] | [place] [address] | | | SERVICES, CORE | PARK [...] | + + + + + | [facility] | [address] | [place] [address] | | | CLAUDIA, ARTIS | MOISES [...] [facility] | [address] | [place] [address] | | | SERVICES, CORE | MOISES [...] + + + + + | [facility] | [address] | [place] [address] | | | SERVICES, CORE | PARK [...] + + + + + | [facility] | [address] | [place] [address] | | | SERVICES, CORE | MOISES [...] [facility] | [address] | [place], [place] | | | HAL[facility] SPANN OF [place] | [facility] | [address] | | | TESTS | | | [...] (H) | 70 - 99 mg/dL | [facility] - | | | GLUCOSE, | | [...] TO | [address] | [place], [place] | | | MARIA INES POINT OF CARE | [address] | [address] | | | TESTS | | | [...] ZU[facility]IKA | [address] | [place], [place] | | | HALLEY SPANN OF [place] | [address] | [address] | | | TESTS | | | [...] - ZU[facility]A | [address] | [place], [place] | | | MARIA INES [facility] | [address] | [address] | | | TESTS | | | | + + + + + X-RAY PORTABLE CHEST 1 VIEW (08/22/2019 1:36 PM PDT) + + | Specimen | + + | | + + + + + | Narrative | Performed At | + + + | EXAM: DE CHEST 1 VIEW HISTORY: s/p central line [...] Interface - 08/22/2019 2:10 PM PDT EXAM: DE CHEST 1 | | VIEW HISTORY: s/p [...] | see CXR report for confirmation Vein social services technician technique: | | | Ultrasound Guidance Techique: The modified Seldinger technique | | | (a uwkegmjz-rbzr-tzv-pquqzq-aomr-lzrr-kbviyrg-ysy-lltfcxuu) was | | | used for vessel [...] | | | POC | | | HALLYE SPANN | | | | | | [...] [facility] | [address] | [place], [place] | | | MARIA INES POINT OF CARE | [address] | [address] | | | TESTS | | | [...] ZULEIKA | [address] | [place], [place] | | | HALLEY SPANN OF [place] | [facility] | [address] | | | TESTS | | | [...] MARFE[facility] | [address] | [place], [place] | | | HALLEY SPANN OF CARE | [facility] | [address] | | | TESTS | | | [...] (L) | 70 - 99 mg/dL | [facility] - | | | GLUCOSE, | | [...] [facility] | [address] | [place], [place] | | | MARIA INES POINT OF CARE | [address] | [address] | | | TESTS | | | [...] TO | [address] | [place], [place] | | | HALLEY SPANN OF CARE | [facility] | [address] | | | TESTS | | | [...] [facility] | [address] | [place], [place] | | | HALLEY SPANN OF CARE | [facility] | [address] | | | TESTS | | | [...] (L) | 70 - 99 mg/dL | [facility] - | | | GLUCOSE, | | [...] ZULEIKA | [address] | [place], [place] | | | [facility] SPANN [facility] | [address] | [address] | | | TESTS | | | [...] | + + + + + | [facility] | [address] [facility] | [place] [address] | | | SERVICES, CORE | MOISES [...] | + + + + + | [facility] | [address] [facility] | [place] [address] | | | SERVICES, ARTIS | MOISES [...] | Test performed by immunoassay using Palafox Track Announcer i2000. . | [facility] | | Samples [...] + + + + + | [facility] | [address] | [place] [address] | | | CLAUDIA SPECIAL | MOISES [...] LABORATORY | [address] | [place] [address] | | | SERVICES, CORE | PARK [...] [facility] | [address] | [place] [address] | | | CLAUDIA, ARTIS | MOISES [...] + + + + + | [facility] | [address] | [place] [address] | | | SERVICES, CORE | [address] | | | + + + + + MAGNESIUM, PLASMA (08/22/2019 5:39 AM PDT) + +-------+ + + + | Component | Value | Ref Range | Performed | Pathologist | | | | | At | Signature | + +-------+ + + + | MAGNESIUM,P | 2.4 | 1.6 - 2.6 mg/dL | [place] | | | [facility] | | | [...] | + + + + + | [facility] | [address] [facility] | [place] [address] | | | SERVICES, CORE | MOISES [...] | + + + + + | [facility] | [address] | [place] [address] | | | SERVICES, CORE | MOISES [...] [facility] | [address] | [place], [place] | | | HILL, POINT OF CARE | [address] | [address] | | | TESTS | | | [...] MAR[facility] | [address] | [place], [place] | | | HALLEY SPANN OF [place] | [address] | [address] | | | TESTS | | | [...] TO | [address] | [place], [place] | | | MARIA INES POINT OF CARE | [address] | [address] | | | TESTS | | | [...] [facility] | [address] | [place], [place] | | | HILL, POINT OF CARE | [address] | [address] | | | TESTS | | | [...] MAR[facility] | [address] | [place], [place] | | | HALLEY SPANN OF [place] | [facility] | [address] | | | TESTS | | | [...] TO | [address] | [place], [place] | | | MARIA INES POINT OF CARE | [address] | [address] | | | TESTS | | | [...] MAR[facility] | [address] | [place] | | | [facility] SPANN [facility] | [facility] | [address] | | | TESTS | | | [...] [facility] | [address] | [place] [address] | | | SERVICES, CORE | MOISES [...] [facility] | [address] | [place] [address] | | | SERVICES, CORE | MOISES [...] | Test performed by immunoassay using Palafox Track Announcer i2000. . | [facility] | | Samples [...] | + + + + + | [facility] | [address] | [place] [address] | | | SERVICES, SPECIAL | PARK [...] [facility] | [address] | [place] [address] | | | SERVICES, CORE | PARK [...] [facility] | [address] | [place] [address] | | | SERVICES, CORE | PARK [...] | + + + + + | [facility] | [address] | [place] [address] | | | SERVICES, ARTIS | MOISES [...] [facility] | [address] | [place] [address] | | | SERVICES, CORE | MOISES [...] MDRD equation recommended by the National | [facility] | | Kidney Disease Education Program. Estimated [...] | + + + + + | [facility] | [address] | [place] [address] | | | SERVICES, CORE | MOISES [...] TO | [address] | [place], [place] | | | HALLEY SPANN OF CARE | [address] | [address] | | | TESTS | | | [...] MARQU[facility] | [address] | [place], [place] | | | MARIA INES POINT OF CARE | [address] | [address] | | | TESTS | | | [...] + + + + | QTC-PREETTT | 455 | ms | [facility] [...] | [facility] | [address] | [place], [place] | | | CARDIOLOGY | [address] | [address] | | + + + + + [...] [facility] | [address] | [place], [place] | | | HILL, POINT OF CARE | [address] | [address] | | | TESTS | | | [...] MARQU[facility] | [address] | [place] | | | HALLEY SPANN OF [place] | [address] | [address] | | | TESTS | | | [...] TO | [address] | [place], [place] | | | MARIA INES POINT OF CARE | [address] | [address] | | | TESTS | | | [...] [facility] | [address] | [place], [place] | | | HILL, POINT OF CARE | [address] | [address] | | | TESTS | | | [...] MARQUAM | [address] | [place], [place] | | | HALLEY SPANN OF [place] | [facility] | [address] | | | TESTS | | | [...] TO | [address] | [place], [place] | | | MARIA INES POINT OF CARE | [address] | [address] | | | TESTS | | | [...] MARQUAM | [address] | [place], [place] | | | [facility] SPANN [facility] | [facility] | [address] | | | TESTS | | | [...] [facility] | [address] | [place] [address] | | | SERVICES, CORE | PARK [...] | + + + + + | [facility] | [address] | [place] [address] | | | SERVICES, CORE | PARK [...] - | | | | | | [place] | | + +-------+ + + + + + | Specimen | + + | Blood - Blood | | (substance) | + + + + + + + | Performing | Address | City/State/Zipcode | Phone Number | | Organization | | | | + + + + + | [facility] | [address] | [place] [address] | | | [facility] | | | | + + + + + TACROLIMUS, WHOLE BLOOD (08/20/2019 6:09 AM PDT) + + + + + + | Component | Value | Ref Range | Performed | Pathologist | | | | | At | Signature | + + + + + + | TACROLIMUS | 5.9Comment: Colette POD #1 | 5.0 - 15.0 [...] | Test performed by immunoassay using Palafox Track Announcer i2000. . | [facility] | | Samples [...] | + + + + + | [facility] | [address] [facility] | [place] [address] | | | SPECIAL CLAUDIA | MOISES [...] [facility] | [address] | [place] [address] | | | SERVICES, CORE | PARK [...] | + + + + + | [facility] | [address] | [place] [address] | | | SERVICES, CORE | MOISES [...] [facility] | [address] | [place] [address] | | | SERVICES, CORE | [address] | | | + + + + + MAGNESIUM, PLASMA (08/20/2019 6:09 AM PDT) + +---------+ + + + | Component | Value | Ref Range | Performed | Pathologist | | | | | At | Signature | + +---------+ + + + | MAGNESIUM,P | 2.7 (H) | 1.6 - 2.6 mg/dL | [facility] [...] + + + + + | [facility] | [address] [facility] | [place] [address] | | | SERVICES, CORE | MOISES [...] MDRD equation recommended by the National | [facility] | | Kidney Disease Education Program. Estimated [...] | + + + + + | [facility] | [address] | [place] [address] | | | SERVICES, CORE | MOISES [...] [facility] | [address] | [place], [place] | | | HALLEY SPANN OF CARE | [address] | [address] | | | TESTS | | | [...] MARQUAM | [address] | [place], [place] | | | HALLEY SPANN OF [place] | [facility] | [address] | | | TESTS | | | [...] TO | [address] | [place], [place] | | | HALLEY SPANN OF [place] | [address] | [address] | | | TESTS | | | [...] MARQU[facility] | [address] | [place], [place] | | | MARIA INES POINT OF CARE | [address] | [address] | | | TESTS | | | [...] - MARQU[facility] | [address] | [place], [place] | | | HALLEY SPANN OF CARE | [facility] | [address] | | | TESTS | | | [...] TO | [address] | [place], [place] | | | HALLEY SPANN OF [place] | [address] | [address] | | | TESTS | | | [...] MARQU[facility] | [address] | [place], [place] | | | HALLEY SPANN OF CARE | [address] | [address] | | | TESTS | | | [...] - ZULEIKA | [address] | [place], [place] | | | HALLEY SPANN OF CARE | [address] | [address] | | | TESTS | | | [...] (H) | 70 - 99 mg/dL | [facility] - | | | GLUCOSE, | | [...] TO | [address] | [place], [place] | | | HALLEY SPANN OF [place] | [address] | [address] | | | TESTS | | | [...] MARQU[facility] | [address] | [place], [place] | | | MARIA INES POINT OF CARE | [address] | [address] | | | TESTS | | | [...] ZULEIKA | [address] | [place], [place] | | | HALLEY SPANN OF CARE | [address] | [address] | | | TESTS | | | [...] + + + | [facility] TO | [address] | [place], [place] | | | HALLEY SPANN OF [place] | [address] | [address] | | | TESTS | | | [...] MARQUAM | [address] | [place], [place] | | | HALLEY SPANN OF CARE | [address] | [address] | | | TESTS | | | [...] | [facility] | [address] | [place], [place] | | | HALLEY SPANN OF CARE | [address] | [address] | | | TESTS | | | [...] TO | [address] | [place], [place] | | | HALLEY SPANN OF [place] | [address] | [address] | | | TESTS | | | [...] MARQUAM | [address] | [place], [place] | | | MARIA INES POINT OF CARE | [address] | [address] | | | TESTS | | | [...] | [facility] | [address] | [place], [place] | | | MARIA INES POINT OF CARE | [address] | [address] | | | TESTS | | | [...] + + + | [facility] TO | [address] | [place], [place] | | | HALLEY SPANN OF [place] | [address] | [address] | | | TESTS | | | [...] MARQUAM | [address] | [place], [place] | | | MARIA INES POINT OF CARE | [address] | [address] | | | TESTS | | | [...] MARQUAM | [address] | [place], [place] | | | MARIA INES POINT OF CARE | [address] | [address] | | | TESTS | | | [...] TO | [address] | [place], [place] | | | MARIA INES POINT OF CARE | [address] | [address] | | | TESTS | | | [...] MARQU[facility] | [address] | [place], [place] | | | MARIA INES POINT OF CARE | [address] | [address] | | | TESTS | | | [...] + | [facility] | [address] | [place], [place] | | | MARIA INES POINT OF CARE | [address] | [address] | | | TESTS | | | [...] + + + | [facility] TO | [address] | [place], [place] | | | HALLEY SPANN OF CARE | [address] | [address] | | | TESTS | | | [...] | + + + + + | [facility] | [address] | [place] [address] | | | SERVICES, CORE | MOISES [...] [facility] | [address] | [place] [address] | | | SERVICES, ARTIS | MOISES [...] | Test performed by immunoassay using Palafox Track Announcer i2000. . | [facility] | | Samples [...] + + + + + | [facility] | [address] | [place] [address] | | | SERVICES, SPECIAL | MOISES [...] | + + + + + | [facility] | [address] | [place] [address] | | | SERVICES, CORE | MOISES [...] [facility] | [address] | [place] [address] | | | SERVICES, CORE | PARK [...] [facility] | [address] | [place] [address] | | | SERVICES, CORE | PARK [...] | + + + + + | [facility] | [address] | [place] [address] | | | SERVICES, CORE | MOISES [...] + + + + + | [facility] | [address] | [place] [address] | | | CLAUDIA, CORE | [address] | | | [...] - MARQU[facility] | [address] | [place], [place] | | | HALLEY SPANN OF CARE | [facility] | [address] | | | TESTS | | | [...] TO | [address] | [place], [place] | | | MARIA INES POINT OF CARE | [address] | [address] | | | TESTS | | | [...] MARQUAM | [address] | [place], [place] | | | HALLEY SPANN OF CARE | [address] | [address] | | | TESTS | | | [...] MARQUAM | [address] | [place], [place] | | | HALLEY SPANN OF RAMILA | [facility] | [address] | | | TESTS | | | [...] (H) | 70 - 99 mg/dL | [facility] - | | | GLUCOSE, | | [...] TO | [address] | [place], [place] | | | HALLEY SPANN OF RAMILA | [address] | [address] | | | TESTS | | | [...] MARFEAM | [address] | [place] | | | MARIA INES POINT OF CARE | [address] | [address] | | | TESTS | | | [...] TO | [address] | [place], [place] | | | MARIA INES [place] [facility] | [facility] | [address] | | | TESTS | | | [...] TO | [address] | [place], [place] | | | HALLEY SPANN OF RAMILA | [address] | [address] | | | TESTS | | | [...] MARQUAM | [address] | [place], [place] | | | HALLEY SPANN OF CARE | [address] | [address] | | | TESTS | | | [...] ZULEIKA | [address] | [place], [place] | | | MARIA INES POINT OF CARE | [address] | [address] | | | TESTS | | | [...] TO | [address] | [place], [place] | | | HALLEY SPANN OF RAMILA | [address] | [address] | | | TESTS | | | [...] MARQUAM | [address] | [place], [place] | | | MARIA INES POINT OF CARE | [address] | [address] | | | TESTS | | | [...] MARFEAM | [address] | [place], [place] | | | MARIA INES POINT OF CARE | [address] | [address] | | | TESTS | | | [...] TO | [address] | [place], [place] | | | HALLEY SPANN OF RAMIL[place] | [address] | [address] | | | TESTS | | | [...] MARQUAM | [address] | [place], [place] | | | MARIA INES POINT OF CARE | [address] | [address] | | | TESTS | | | [...] MARQUAM | [address] | [place], [place] | | | MARIA INES POINT OF CARE | [address] | [address] | | | TESTS | | | [...] TO | [address] | [place], [place] | | | MARIA INES POINT OF CARE | [address] | [address] | | | TESTS | | | [...] MARQUAM | [address] | [place], [place] | | | MARIA INES POINT OF CARE | [address] | [address] | | | TESTS | | | [...] - MARQUAM | [address] | [place], [place] | | | MARIA INES POINT OF CARE | [address] | [address] | | | TESTS | | | [...] TO | [address] | [place], [place] | | | HALLEY SPANN OF RAMILA | [address] | [address] | | | TESTS | | | [...] [facility] | [address] | [place] [address] | | | SERVICES, | [address] [...] | + + + + + | [facility] | [address] | [place] [address] | | | SERVICES, | [address] [...] + + + + | PRODUCT | [id number] | | [facility] | | | UNIT [...] + + + + | EXPIRATION | [id number] | | [facility] | | | DATE [...] + + + + | BLOOD | [id number] | | [facility] | | | PRODUCT [...] | + + + + + | [facility] | [address] | [place] [address] | | | SERVICES, | [address] [...] + + + + | PRODUCT | [id number] | | [facility] | | | UNIT [...] + + + + | EXPIRATION | [id number] | | [facility] | | | DATE [...] + + + + | BLOOD | [id number] | | [facility] | | | PRODUCT [...] | + + + + + | [facility] | [address] | [place] [address] | | | SERVICES, | [address] [...] [facility] | [address] | [place], [place] | | | HALLEY SPANN OF CARE | [facility] | [address] | | | TESTS | | | [...] + + + + + | [facility] | [address] | [place] [address] | | | SERVICES, CORE | MOISES [...] (H) | 70 - 99 mg/dL | [facility] - | | | GLUCOSE, | | [...] TO | [address] | [place], [place] | | | HALLEY SPANN OF CARE | [address] | [address] | | | TESTS | | | [...] | + + + + + | [facility] | [address] | [place] [address] | | | SERVICES, CORE | MOISES [...] | Test performed by immunoassay using Palafox Track Announcer i2000. . | [facility] | | Samples [...] | + + + + + | [facility] | [address] | [place] [address] | | | SPECIAL CLAUDIA | MOISES [...] [facility] | [address] | [place] [address] | | | SERVICES, CORE | PARK [...] | + + + + + | [facility] | [address] | [place] [address] | | | SERVICES, CORE | MIOSES [address]IR[address] | | | + + + [...] [facility] | [address] | [place] [address] | | | SERVICES, CORE | [address] | | | + + + + + MAGNESIUM, PLASMA (08/18/2019 6:14 AM PDT) + +---------+ + + + | Component | Value | Ref Range | Performed | Pathologist | | | | | At | Signature | + +---------+ + + + | MAGNESIUM,P | 2.8 (H) | 1.6 - 2.6 mg/dL | [facility] [...] | + + + + + | [facility] | [address] [facility] | [place] [address] | | | SERVICES, [facility] | [address] | | | + [...] equation recommended by the National | [facility] | | Kidney Disease [...] | + + + + + | [facility] | [address] | [place] [address] | | | SERVICES, CORE | MOISES [...] [facility] | [address] | [place], [place] | | | HALLEY SPANN OF CARE | [address] | [address] | | | TESTS | | | [...] + | [facility] | [address] | [place], [place] | | | HALLEY SPANN OF CARE | [address] | [address] | | | TESTS | | | [...] TO | [address] | [place], [place] | | | HALLEY SPANN OF RAMILA | [address] | [address] | | | TESTS | | | [...] [facility] | [address] | [place], [place] | | | MARIA INES POINT OF CARE | [address] | [address] | | | TESTS | | | [...] ZULEIKA | [address] | [place], [place] | | | HALLEY SPANN OF CARE | [address] | [address] | | | TESTS | | | [...] (H) | 70 - 99 mg/dL | [facility] - | | | GLUCOSE, | | [...] TO | [address] | [place], [place] | | | HALLEY SPANN OF [place] | [address] | [address] | | | TESTS | | | [...] [facility] | [address] | [place], [place] | | | HALLEY SPANN OF CARE | [address] | [address] | | | TESTS | | | [...] JJAM | [address] | [place], [place] | | | MARIA INES POINT OF CARE | [address] | [address] | | | TESTS | | | [...] TO | [address] | [place], [place] | | | HALLEY SPANN OF RAMILA | [address] | [address] | | | TESTS | | | [...] MARQUAM | [address] | [place], [place] | | | MARIA INES POINT OF CARE | [address] | [address] | | | TESTS | | | [...] MAR[facility] | [address] | [place], [place] | | | MARIA INES POINT OF CARE | [address] | [address] | | | TESTS | | | [...] TO | [address] | [place], [place] | | | HALLEY SPANN OF RAMILA | [address] | [address] | | | TESTS | | | [...] MARQU[facility] | [address] | [place], [place] | | | MARIA INES POINT OF CARE | [address] | [address] | | | TESTS | | | | + + + + + PROCEDURE NOTE (08/17/2019 4:36 PM PDT) + + + | Narrative | Performed At | + + + | Olena Rosen 09/02/2019 12:12 PM Cellular Therapy | | | Laboratory - [facility] Vessels Cell Processing Name: Doug Dominguez | | | Roger Allogeneic Donor Specimen Type: Vessel | | | Receipt, Storage and Monitoring: One cup of extra vessels with | | | UNOS [id number] for Doug Lawson is received by la in a bag | | | with [...] | | extra vessels are logged by la into the Extra Vessel Receipt, | | [...] days per week using the [facility] | | | [facility] Aeroscout Alarm Monitoring System and all | [...] TO | [address] | [place], [place] | | | HALLEY SPANN OF [place] | [address] | [address] | | | TESTS | | | [...] ZULEIKA | [address] | [place], [place] | | | HALLEY SPANN OF [place] | [facility] | [address] | | | TESTS | | | [...] (H) | 70 - 99 mg/dL | [facility] - | | | GLUCOSE, | | [...] TO | [address] | [place], [place] | | | MARIA INES POINT OF CARE | [address] | [address] | | | TESTS | | | [...] | [facility] | [address] | [place], [place] | | | THERAPY LAB | [facility] | [address] | | + + + + + | [facility] | [address] | [place], [place] | | | PROCESSING LAB | [address] | [address] | | + + + + + [...] [facility] | [address] | [place], [place] | | | MARIA INES POINT OF CARE | [address] | [address] | | | TESTS | | | [...] TO | [address] | [place], [place] | | | HLALEY SPANN OF CARE | [address] | [address] | | | TESTS | | | [...] MARQUAM | [address] | [place], [place] | | | MARIA INES POINT OF CARE | [address] | [address] | | | TESTS | | | [...] | Test performed by immunoassay using Palafox Track Announcer i2000. . | [facility] | | Samples [...] | + + + + + | [facility] | [address] | [place] [address] | | | SERVICES, SPECIAL | MOISES [...] (H) | 70 - 99 mg/dL | [facility] - | | | GLUCOSE, | | [...] TO | [address] | [place], [place] | | | HALLEY SPANN OF CARE | [facility] | [address] | | | TESTS | | | [...] ZULEIKA | [address] | [place], [place] | | | HALLEY SPANN OF [place] | [address] | [address] | | | TESTS | | | [...] - ZULEIKA | [address] | [place], [place] | | | HALLEY SPANN OF CARE | [facility] | [address] | | | TESTS | | | [...] (H) | 70 - 99 mg/dL | [facility] - | | | GLUCOSE, | | [...] TO | [address] | [place], [place] | | | HALLEY SPANN OF [facility] | [facility] | [address] | | | TESTS | | | [...] + + + + + | [facility] | [address] [facility] | [place] [address] | | | SERVICES, CORE | MOISES [...] + + + + + | [facility] | [address] | [place] [address] | | | CLAUDIA, ARTIS | MOISES [...] + | [facility] | [address] | [place] [address] | | | [place] | | | [...] [facility] | [address] | [place] [address] | | | SERVICES, CORE | PARK [...] | + + + + + | [facility] | [address] | [place] [address] | | | SERVICES, CORE | MOISES [...] [facility] | [address] | [place] [address] | | | SERVICES, CORE | MOISES [...] [facility] | [address] | [place] [address] | | | SERVICES, CORE | PARK [...] [facility] | [address] | [place] [address] | | | ARTIS TAYLOR | MOISES [...] | + + + + + | [facility] | [address] | [place] [address] | | | SERVICES, CORE | PARK [...] | + + + + + | [facility] | [address] | [place] [address] | | | SERVICES, ARTIS | MOISES [...] MARQU[facility] | [address] | [place], [place] | | | HALLEY SPANN OF CARE | [facility] | [address] | | | TESTS | | | [...] (H) | 70 - 99 mg/dL | [facility] - | | | GLUCOSE, | | [...] ZULEIKA | [address] | [place], [place] | | | HALLEY SPANN OF CARE | [address] | [address] | | | TESTS | | | [...] + + + + | PRODUCT | [id number] | | [facility] | | | UNIT [...] + + + + | EXPIRATION | [id number] | | [facility] | | | DATE [...] + + + + | BLOOD | [id number] | | [facility] | | | PRODUCT [...] | + + + + + | [facility] | [address] | [place] [address] | | | SERVICES, | [address] [...] MAR[facility] | [address] | [place], [place] | | | HALLEY SPANN OF RAMILA | [address] | [address] | | | TESTS | | | [...] [facility] | [address] | [place] [address] | | | SERVICES, CORE | PARK [...] [facility] | [address] | [place] [address] | | | SERVICES, CORE | MOISES [...] [facility] | [address] | [place] [address] | | | SERVICES, CORE | PARK [...] 4.0 | LABORATORY | | mmol/L | CLAUDIA, ARTIS | + + + + + + + + | Performing | Address | City/State/Zipcode | Phone Number | | Organization | | | | + + + + + | [facility] | [address] | [place] [address] | | | SERVICES, CORE | PARK [...] | + + + + + | [facility] | [address] [facility] | [place] [address] | | | SERVICES, CORE | [address] | | | + + + [...] | + + + + + | [facility] | [address] | [place] [address] | | | SERVICES, ARTIS | MOISES [...] - [facility] | [address] | [place], [place] | | | HALLEY SPANN OF CARE | [facility] | [address] | | | TESTS | | | [...] (H) | 70 - 99 mg/dL | [facility] - | | | GLUCOSE, | | [...] ZULEIKA | [address] | [place], [place] | | | HALLEY SPANN OF [facility] | [address] | [address] | | | TESTS | | | [...] TO | [address] | [place], [place] | | | HALLEY SPANN OF RAMILA | [facility] | [address] | | | TESTS | | | [...] - [facility] | [address] | [place], [place] | | | MARIA INES POINT OF [facility] | [facility] | [address] | | | TESTS | | | [...] + + | [facility] | [address] [facility] | [place] [address] | | | ARTIS TAYLOR | [address] [...] [facility] | [address] | [place] [address] | | | SERVICES, CORE | MOISES [...] [facility] | [address] | [place] [address] | | | SERVICES, CORE | PARK [...] [facility] | [address] | [place] [address] | | | SERVICES, ARTIS | MOISES [...] equation recommended by the National | [facility] | | Kidney Disease [...] + + + + + | [facility] | [address] | [place] [address] | | | CLAUDIA, ARTIS | PARK [...] + + | [facility] | [address] [facility] | [place] [address] | | | ARTIS TAYLOR | MOISES [...] - [facility] | [address] | [place], [place] | | | HALLEY SPANN OF CARE | [facility] | [address] | | | TESTS | | | [...] TO | [address] | [place], [place] | | | HALLEY SPANN OF RAMILA | [address] | [address] | | | TESTS | | | [...] MARQUAM | [address] | [place], [place] | | | HALLEY SPANN OF CARE | [address] | [address] | | | TESTS | | | [...] [facility] | [address] | [place] [address] | | | SERVICES, CORE | PARK [...] | + + + + + | [facility] | [address] [facility] | [place] [address] | | | SERVICES, CORE | MOISES [...] Range: (75 - 120) sec Heparin | CLAUDIA CORE | | levels of 0.35 - 0.7 U/mL | | + + + + + + + + | Performing | Address | City/State/Zipcode | Phone Number | | Organization | | | | + + + + + | [facility] | [address] | [place] [address] | | | ARTIS TAYLOR | MOISES [...] [facility] | [address] | [place] [address] | | | SERVICESARTIS | [address] | | | + [...] [facility] | [address] | [place] [address] | | | ARTIS TAYLOR | MOISES [...] [facility] | [address] | [place] [address] | | | SERVICES, CORE | MOISES [...] MDRD equation recommended by the National | [facility] | | Kidney Disease Education Program. Estimated [...] + + + + + | [facility] [employer] | [address] | [place] [address] | | | SERVICES, CORE | PARK [...] [facility] | [address] | [place], [place] | | | HALLEY SPANN OF CARE | [address] | [address] | | | TESTS | | | [...] - ZULEIKA | [address] | [place], [place] | | | MARIA INES POINT [facility] | [address] | [address] | | | TESTS | | | [...] | + + + + + | [facility] | [address] | [place] [address] | | | SERVICES, CORE | MOISES [...] [facility] | [address] | [place], [place] | | | HALLEY SPANN OF CARE | [address] | [address] | | | TESTS | | | [...] + + + + | PRODUCT | [id number] | | [facility] | | | UNIT [...] + + + + | EXPIRATION | [id number] | | [facility] | | | DATE [...] + + + + | BLOOD | [id number] | | [facility] | | | PRODUCT [...] [facility] | [address] | [place] [address] | | | SERVICES, | [address] [...] DEPT OF | [address] | [place], [place] | | | CARDIOLOGY | [address] | [address] | | + + + + + X-RAY ABDOMEN 1 VIEW (08/16/2019 8:44 AM PDT) + + | Specimen | + + | | + + + + + | Narrative | Performed At | + + + | EXAM: DE CHEST 1 VIEW, ABDOMEN 1 VIEW HISTORY: [...] were | | | discussed with the certified surgical assistant on 08/16/2019 10:23 AM by Ramana Hernandez [...] Interface - 08/16/2019 10:26 AM PDT EXAM: DE CHEST 1 | | VIEW, ABDOMEN 1 [...] results were | | discussed with the certified surgical assistant on 08/16/2019 10:23 AM by Ramana Hernandez [...] | |These results were discussed with the certified surgical assistant on 08/16/2019 10:23 AM by Ramana Hernandez [...] At | + + + | EXAM: DE CHEST 1 VIEW, ABDOMEN 1 VIEW HISTORY: [...] were | | | discussed with the certified surgical assistant on 08/16/2019 10:23 AM by Ramana Hernandez [...] Note | + + | Service Account, Akilah Res In Interface - 08/16/2019 10:26 AM PDT EXAM: DE CHEST 1 | | VIEW, ABDOMEN 1 [...] results were | | discussed with the certified surgical assistant on 08/16/2019 10:23 AM by Ramana Hernandez [...] | |These results were discussed with the certified surgical assistant on 08/16/2019 10:23 AM by Ramana Hernandez [...] [facility] | [address] | [place] [address] | | | SERVICES, CORE | MOISES [...] [facility] | [address] | [place] [address] | | | SERVICES, CORE | PARK [...] [facility] | [address] | [place] [address] | | | SERVICES, CORE | PARK [...] + + + + + | [facility] | [address] [facility] | [place] [address] | | | SERVICES, CORE | P[address] [...] equation recommended by the National | [facility] | | Kidney Disease Education Program. Estimated GFR Interpretive | LABORATORY | | Information: <60 mL/min/1.73 sq m Chronic Kidney | SERVICES, [facility] | | Disease <15 mL/min/1.73 sq m [...] + + + + + | [facility] | [address] [facility] | [place] [address] | | | CLAUDIA, ARTIS | MOISES [...] [facility] | [address] | [place] [address] | | | SERVICES, CORE | PARK [...] | + + + + + | [facility] | [address] | [place] [address] | | | SERVICES, CORE | MOISES [...] [facility] | [address] | [place] [address] | | | SERVICES, CORE | PARK [...] [facility] | [address] | [place] [address] | | | SERVICES, CORE | PARK [...] + + + + + | [facility] | [address] | [place] [address] | | | SERVICES, CORE | MOISES [...] (H) | 70 - 99 mg/dL | [facility] - | | | GLUCOSE, | | [...] TO | [address] | [place], [place] | | | MARIA INES POINT [facility] | [address] | [address] | | | TESTS | | | | + + + + + VANESSA-MAUREEN BLAS (08/16/2019 7:08 AM PDT) + + + [...] [facility] | [address] | [place], [place] | | | HALLEY SPANN OF CARE | [facility] | [address] | | | TESTS | | | | + + + + + ABG-FULL ABL, POC (08/16/2019 6:32 AM PDT) + + [...] TO | [address] | [place], [place] | | | HALLEY SPANN OF [facility] | [address] | [address] | | | TESTS | | | | + + + + + VANESSA-MAUREEN BLAS (08/16/2019 6:02 AM PDT) + + + [...] | | | | | mmol/L | [facility] | | | | | [...] - [facility] | [address] | [place], [place] | | | HALLEY SPANN OF CARE | [address] | [address] | | | TESTS | | | | + + + + + ABG-FULL MARIA A POC (08/16/2019 5:39 AM PDT) + + + [...] TO | [address] | [place], [place] | | | HALLEY SPANN OF CARE | [facility] | [address] | | | TESTS | | | [...] | | | | | mmol/L | [facility] | | | | | | HALLEY SPANN | | | | | | OF CARE | | | | | | TESTS | | + + + + + + | GLENN | 1.24 | 1.14 - 1.32 | [facility] - | | | IONIZED CA, | | mmol/L | [facility] | | | POC | | | [...] - [facility] | [address] | [place], [place] | | | HALLEY SPANN OF RAMILA | [facility] | [address] | | | TESTS | | | | + + + + + ABG-FULL MARIA A POC (08/16/2019 4:39 AM PDT) + + + [...] | | [facility] - | | | ART POC | | | [facility] | | | [...] [facility] | [address] | [place], [place] | | | HALLEY SPANN OF [place] | [address] | [address] | | | TESTS | | | [...] TO | [address] | [place], [place] | | | MARIA INES POINT OF CARE | [address] | [address] | | | TESTS | | | | + + + + + ABCipriano-MAUREEN BLAS (08/16/2019 4:14 AM PDT) + + [...] | | | POC | | | HALELY SPANN | | | | | | [...] | | ART, POC | | | [facility] | | [...] [facility] | [address] | [place], [place] | | | HILL, POINT OF CARE | [address] | [address] | | | TESTS | | | [...] TO | [address] | [place], [place] | | | HALLEY SPANN OF [place] | [facility] | [address] | | | TESTS | | | [...] signed by Wong | | Diagnosis | false pass, explant: | | OF | T Brendon, [...] node | | | | | | (0)B. Liver, | | | | | | [...] node | | | | | | (0)Comment: No | | | | | | [...] PathologistPathology, | | | | | | [facility] | | | | | | [facility] electronic | | | | | | [...] number | | | | | | [id number]. A. Liver, | | | | | | recipient false pass liver | | | | | | and gallbladder: | | | | | | Labeled: Recipient | | | | | | false pass liver and | | | | | [...] submitted: | | | | | | Medical Coding Auditor Cassette | | | | | | [...] | | | | | | two lifeline representatives | | | | | | sectionsA5: Background | | | | | | right lobe, two | | | | | | lifeline representatives | | | | | | sectionsB. [...] Submitted: | | | | | | Medical Coding Auditor sections | | | | | | Cassette Summary:C1: | | | | | | Cystic duct margin | | | | | | (inked & en face), lymph | | | | | | node, and | | | | | | lifeline representatives sections | | | | | | [...] | + + + + + | [facility] | [address] | [place] [address] | | | PATHOLOGY | [address] | | | + + + + + ABG-FULL ABL, POC (08/16/2019 3:37 AM PDT) + + + + + + | Component | Value | Ref Range | Performed | Pathologist | | | | | At | Signature | + + + + + + | PH | 7.38 | 7.37 - 7.44 | [facility] - | | | ARTERIAL, | | | [facility] | | | POC | | | HALLEY SPANN | | | | | | OF CARE | | | | | | TESTS | | + + + + + + | PO2 | 172 (H) | 72 - 104 mmHg | [facility] - | | | ARTERIAL, | | [...] TO | [address] | [place], [place] | | | MARIA INES POINT OF CARE | [address] | [address] | | | TESTS | | | | + + + + + VANESSA-CASEY SAHA POC (08/16/2019 3:06 AM PDT) + + [...] [facility] | [address] | [place], [place] | | | MARIA INES POINT OF CARE | [address] | [address] | | | TESTS | | | | + + + + + ABG-FULL MAUREEN SAHA (08/16/2019 2:18 AM PDT) + + + [...] [facility] | [address] | [place], [place] | | | HALLEY SPANN OF [place] | [address] | [address] | | | TESTS | | | [...] ZU[facility]IKA | [address] | [place] | | | HALLEY SPANN OF CARE | [facility] | [address] | | | TESTS | | | [...] [facility] | [address] | [place] [address] | | | SERVICES, CORE | PARK [...] + | [facility] - | [address] | [place] [address] | | | [place] | | | | + + + [...] | polymorphonuclear cells No organisms seen | [place] | + + + + + + + + | Performing | Address | City/State/Zipcode | Phone Number | | Organization | | | | + + + + + | [facility] - | [address] | [place] [address] | | | [place] | | | [...] bacteria isolated at 6 weeks. AFB | [facility] | | Smear: AFB not detected | [facility] - | | | [place] | + + + + + + + + | Performing | Address | City/State/Zipcode | Phone Number | | Organization | | | | + + + + + | [facility] | [address] | [place] [address] | | | [place] | | | | + + + [...] [facility] | [address] | [place] [address] | | | SERVICES, ARTIS | MOISES [...] [facility] | [address] | [place] [address] | | | SERVICES, CORE | [address] | | | + + + + + NON SLIP COVER ESTIMATOR CYTOLOGY (08/16/2019 1:32 AM PDT) + + [...] | by:Francisca Corral, | | SERVICES, | M Quan, | | | SCT(ASC) - | | [facility] | DO on | | | CytotechnologistArlette | | HEALTH + | 08/19/2019 at | | | MD Esthela | | HEALING | 4:40 PM | | | | | | | | | Cytopathology | | | | | | FellowAatom Glass, | | | | | | DO | | | | | | | | | | | | PathologistPathology, | | | | | | [facility] | | | | | [...] + + + | [facility] | [address] | [place] [address] | | | [facility] | | | | | HEALTH + HEALING | | | | + + + + + | [facility] | [address] | [place] [address] | | | PATHOLOGY | [address] [...] + + + + | PRODUCT | [id number] | | [facility] | | | UNIT [...] + + + + | EXPIRATION | [id number] | | [facility] | | | DATE [...] + + + + | BLOOD | [id number] | | [facility] | | | PRODUCT [...] [facility] | [address] | [place] [address] | | | SERVICES, | [address] [...] + + + + | PRODUCT | [id number] | | [facility] | | | UNIT [...] + + + + | EXPIRATION | [id number] | | [facility] | | | DATE [...] + + + + | BLOOD | [id number] | | [facility] | | | PRODUCT [...] [facility] | [address] | [place] [address] | | | SERVICES, | [address] [...] + + + + | PRODUCT | [id number] | | [facility] | | | UNIT [...] + + + + | EXPIRATION | [id number] | | [facility] | | | DATE [...] + + + + | BLOOD | [id number] | | [facility] | | | PRODUCT [...] | + + + + + | [facility] | [address] | [place] [address] | | | SERVICES, | [address] [...] + + + + | PRODUCT | [id number] | | [facility] | | | UNIT [...] + + + + | EXPIRATION | [id number] | | [facility] | | | DATE [...] + + + + | BLOOD | [id number] | | [facility] | | | PRODUCT [...] | + + + + + | [facility] | [address] | [place] [address] | | | SERVICES, | [address] [...] + + + + | PRODUCT | [id number] | | [facility] | | | UNIT [...] + + + + | EXPIRATION | [id number] | | [facility] | | | DATE [...] + + + + | BLOOD | [id number] | | [facility] | | | PRODUCT [...] | + + + + + | [facility] | [address] | [place] [address] | | | SERVICES, | [address] [...] + + + + | PRODUCT | [id number] | | [facility] | | | UNIT [...] + + + + | EXPIRATION | [id number] | | [facility] | | | DATE [...] + + + + | BLOOD | [id number] | | [facility] | | | PRODUCT [...] [facility] | [address] | [place] [address] | | | SERVICES, | [address] [...] + + + + | PRODUCT | [id number] | | [facility] | | | UNIT [...] + + + + | EXPIRATION | [id number] | | [facility] | | | DATE [...] + + + + | BLOOD | [id number] | | [facility] | | | PRODUCT [...] [facility] | [address] | [place] [address] | | | SERVICES, | [address] [...] + + + + | PRODUCT | [id number] | | [facility] | | | UNIT [...] + + + + | EXPIRATION | [id number] | | [facility] | | | DATE [...] + + + + | BLOOD | [id number] | | [facility] | | | PRODUCT [...] [facility] | [address] | [place] [address] | | | SERVICES, | [address] [...] + + + + | PRODUCT | [id number] | | [facility] | | | UNIT [...] + + + + | EXPIRATION | [id number] | | [facility] | | | DATE [...] + + + + | BLOOD | [id number] | | [facility] | | | PRODUCT [...] [facility] | [address] | [place] [address] | | | SERVICES, | [address] [...] + + + + | PRODUCT | [id number] | | [facility] | | | UNIT [...] + + + + | EXPIRATION | [id number] | | [facility] | | | DATE [...] + + + + | BLOOD | [id number] | | [facility] | | | PRODUCT [...] [facility] | [address] | [place] [address] | | | SERVICES, | [address] [...] + + + + | PRODUCT | [id number] | | [facility] | | | UNIT [...] + + + + | EXPIRATION | [id number] | | [facility] | | | DATE [...] + + + + | BLOOD | [id number] | | [facility] | | | PRODUCT [...] [facility] | [address] | [place] [address] | | | SERVICES, | [address] [...] + + + + | PRODUCT | [id number] | | [facility] | | | UNIT [...] + + + + | EXPIRATION | [id number] | | [facility] | | | DATE [...] + + + + | BLOOD | [id number] | | [facility] | | | PRODUCT [...] | + + + + + | [facility] | [address] | [place] [address] | | | SERVICES, | [address] | | | | TRANSFUSION MEDICINE | | | | + + + + + VANESSA-MAUREEN BLAS (08/16/2019 12:23 AM PDT) + + + [...] [facility] | [address] | [place], [place] | | | HALLEY SPANN OF CARE | [facility] | [address] | | | TESTS | | | [...] Seth | TESTS | | MD Siddharth Ski Top Trimmer Trauma, Critical Care & Acute Care | | | Surgery | | + + + + + + + + | Performing | Address | City/State/Zipcode | Phone Number | | Organization | | | | + + + + + | [facility] | [address] | [place], [place] | | | MARIA INES POINT OF CARE | [address] | [address] | | | TESTS | | | [...] | | | CITRATED | | | [facility] | | | | | [...] - | | | | | | [facility] | | | | | | HALLEY SPANN | | | | | | OF CARE | | | | | | TESTS | | + + + + + + | CLOT INDEX | -1.8 | -3 - 3 | [facility] - | | | | | | [facility] | | | [...] suggested Seth Messina MD | | | Ski Top Trimmer Trauma, Critical Care & Acute Care Surgery | | | | | + + + + + + + + | Performing | Address | City/State/Zipcode | Phone Number | | Organization | | | | + + + + + | [facility] | [address] | [place], [place] | | | [facility] PO[facility] OF [facility] | [facility] | [address] | | | TESTS | | | [...] | TESTS | | Seth Messina MD Ski Top Trimmer Trauma, Critical Care & Acute | | | Care Surgery | | + + + + + + + + | Performing | Address | City/State/Zipcode | Phone Number | | Organization | | | | + + + + + | [facility] | [address] | [place], [place] | | | HALLEY SPANN OF CARE | [address] | [address] | | | TESTS | | | [...] | | CITRATED | | | MARIA INES, POINT | [...] [facility] | | | | | | MARIA [...] correlation suggested Seth | TESTS | | Chi, MD Ski Top Trimmer Trauma, Critical Care & Acute Care | | | Surgery | | + + + + + + + + | Performing | Address | City/State/Zipcode | Phone Number | | Organization | | | | + + + + + | [facility] | [address] | [place], [place] | | | MARIA INES POINT OF CARE | [address] | [address] | | | TESTS | | | [...] [facility] | [address] | [place], [place] | | | MAR[facility] INES POINT OF CARE | [address] | [address] | | | TESTS | | | [...] | + + + + + | [facility] | [address] | [place] [address] | | | SERVICES, CORE | MOISES [...] | [facility] | | | GRAVITY | [place] performed by | | LABORATORY | | [...] | + + + + + | [facility] | [address] | [place] [address] | | | SERVICES, CORE | MOISES [...] [facility] | [address] | [place] [address] | | | SERVICES, CORE | MOISES [...] | | | | | determined by [email or web address] | | | | | | Laboratories. See | | | | | | Compliance Statement B: | | | | | | Taskmit.[place]/CSPerformed | | | | | | by Lolay,500 | | | | | | Joi Fuller [facility] [place] | | | | | | [address] | | | | | | [phone].Taskmit. | | | | | | Harley [...] [facility] | [address] | [place], [place] | | | [facility] | | [address] | | + + + + + [...] + + + + | QTC-BAZETT | 724 | ms | [facility] [...] + + + | ECG | Short DE interval | | [facility] | | [...] ECG | Electronically signed | | [facility] | | | IMPRESSION | by: ALIREZA [...] + | [facility] | [address] | [place], [place] | | | CARDIOLOGY | [address] | [address] | | + + + + + [...] TO | [address] | [place], [place] | | | HAL[facility] SPANN OF [place] | [address] | [address] | | | TESTS | | | [...] report as now presented. Final signature: Ramana Miranda | | | MD David 08/15/2019 7:45 PM Preliminary: Ramana Hernandez MD | | | Dictation initiated: Ramana Hernandez MD 08/15/2019 7:43 PM | | + + + + + | Procedure Note | + + | Service Account, [employer] In Interface - 08/15/2019 7:46 PM [...] Preliminary: Ramana Hernandez MD Dictation initiated: Ramana Miranda | | MD David 08/15/2019 7:43 PM | |IMPRESSION: | | [...] + + + + + | [facility] | [address] | [place] [address] | | | SERVICES, CORE | MOISES [...] [facility] | [address] | [place] [address] | | | SERVICES, | [address] [...] + + + + + | [facility] | [address] | [place] [address] | | | SERVICES, | [address] [...] | Testing | [facility] | | performed by:[facility]oon[employer] [id number] [address] Mil[facility]ros, | REFERENCE LAB | | RAVINDRA [address] | | |RAVINDRA Linares [address] | | + + + + + [...] | | | | | determined by [employer] | | | | | | Laboratories. See | | | | | | Compliance Statement B: | | | | | | Taskmit.[place]/CSPerformed | | | | | | by Lolay,500 | | | | | | Joi Fuller, [facility] [place] | | | | | | [address] | | | | | | [phone].Telematiklab. | | | | | | [facility] MD, | | | | | | Lab. Director | | | | + + + + + + | COTININE | <2 | ng/mL | [facility] | | | | | [...] [facility] | [address] | [place], [place] | | | UN[facility] | | [address] | | + + + + + [...] performance of the | [facility] | | FRENCH TRANSLATOR HIV Combo test, with or without confirmation, was not | LABORATORY | | tested in pediatric patients less than 2 years of age. NIH | SERVICES, | | guidelines recommend virologic [...] [facility] | [address] | [place] [address] | | | SERVICES, SPECIAL | PARK [...] [facility] | [address] | [place] [address] | | | SERVICES, CORE | MOISES [...] + + + + + | [facility] | [address] | [place] [address] | | | SERVICES, CORE | PARK [...] | + + + + + | [facility] | [address] | [place] [address] | | | SERVICES, CORE | MOISES [...] by | | | | | | Lolay,500 | | | | | | Joi Fuller, [facility] [place] | | | | | | [address] | | | | | | [phone].Telematiklab. | | | | | | Harley [...] [facility] | [address] | [place], [place] | | | [facility] | | [address] | | + + + + + [...] [address] | | | | | | [place] [address] | | | | | | [phone].aruplab. | | | | | | Harley [...] [facility] | [address] | [place], [place] | | | UN[facility] | | [address] | | + + + + + [...] by | | | | | | Lolay,500 | | | | | | Joi Fuller, [facility] [place] | | | | | | [address] | | | | | | [phone].Taskmit. | | | | | | Harley [...] [facility] | [address] | [place], [place] | | | UN[facility] | | [address] | | + + + + + [...] [facility] | [address] | [place] [address] | | | SERVICES, CORE | MOISES [...] [facility] | [address] | [place] [address] | | | SERVICES, CORE | PARK [...] + + + + + | [facility] | [address] | [place] [address] | | | SERVICES, CORE | [address] | | | + + + + + AMYLASE, PLASMA (08/15/2019 3:03 PM PDT) + +-------+ + + + | Component | Value | Ref Range | Performed | Pathologist | | | | | At | Signature | + +-------+ + + + | AMYLASE,EZEQUIEL | 34 | 25 - 115 U/L | [facility] | | | SMA | | | [...] | + + + + + | [facility] | [address] | [place] [address] | | | SERVICES, CORE | MOISES [...] [facility] | [address] | [place] [address] | | | SERVICES, CORE | PARK [...] + + + + + | [facility] [employer] | [address] [facility] | [place] [address] | | | SERVICES, CORE | MOISES [...] [facility] | [address] | [place] [address] | | | SERVICES, CORE | MOISES [...] [facility] | [address] | [place] [address] | | | SERVICES, CORE | PARK [...] equation recommended by the National | [facility] | | Kidney Disease [...] | + + + + + | [facility] | [address] | [place] [address] | | | SERVICES, CORE | MOISES [...] + + | [facility] - | [address] | [place], [place] [address] | | | IMMUNOGENETICS/TRANS | [address] [...] + | [facility] - | [address] | [place] [address] | | | IMMUNOGENETICS/TRANS | [address] [...] [facility] | [address] | [place] [address] | | | SERVICES, CORE | PARK [...] [facility] | [address] | [place] [address] | | | SERVICES, CORE | PARK [...] | + + + + + | [facility] | [address] | [place] [address] | | | SERVICES, CORE | MOISES [...] | + + + + + | [facility] | [address] [facility] | [place] [address] | | | SERVICESARTIS | [address] | | | + [...] | | | suggested Seth Messina MD Ski Top Trimmer Trauma, Critical | | | Care & Acute Care Surgery | | + + + + + + + + | Performing | Address | City/State/Zipcode | Phone Number | | Organization | | | | + + + + + | [facility] | [address] | [place], [place] | | | MARIA INES POINT OF CARE | [address] | [address] | | | TESTS | | | [...] + + + + | PRODUCT | [id number] | | [facility] | | | UNIT [...] + + + + | EXPIRATION | [id number] | | [facility] | | | DATE [...] + + + + | BLOOD | [id number] | | [facility] | | | PRODUCT [...] [facility] | [address] | [place] [address] | | | SERVICES, | [address] [...] + + + + | PRODUCT | [id number] | | [facility] | | | UNIT [...] + + + + | EXPIRATION | [id number] | | [facility] | | | DATE [...] + + + + | BLOOD | [id number] | | [facility] | | | PRODUCT [...] [facility] | [address] | [place] [address] | | | SERVICES, | [address] [...] + + + + | PRODUCT | [id number] | | [facility] | | | UNIT [...] + + + + | EXPIRATION | [id number] | | [facility] | | | DATE [...] + + + + | BLOOD | [id number] | | [facility] | | | PRODUCT [...] [facility] | [address] | [place] [address] | | | SERVICES, | [address] [...] + + + + | PRODUCT | [id number] | | [facility] | | | UNIT [...] + + + + | EXPIRATION | [id number] | | [facility] | | | DATE [...] + + + + | BLOOD | [id number] | | [facility] | | | PRODUCT [...] [facility] | [address] | [place] [address] | | | SERVICES, | [address] [...] + + + + | PRODUCT | [id number] | | [facility] | | | UNIT [...] + + + + | EXPIRATION | [id number] | | [facility] | | | DATE [...] + + + + | BLOOD | [id number] | | [facility] | | | PRODUCT [...] | + + + + + | [facility] | [address] | [place] [address] | | | SERVICES, | [address] [...] + + + + | PRODUCT | [id number] | | [facility] | | | UNIT [...] + + + + | EXPIRATION | [id number] | | [facility] | | | DATE [...] + + + + | BLOOD | [id number] | | [facility] | | | PRODUCT [...] | + + + + + | [facility] | [address] | [place] [address] | | | SERVICES, | [address] [...] + + + + | PRODUCT | [id number] | | [facility] | | | UNIT [...] + + + + | EXPIRATION | [id number] | | [facility] | | | DATE [...] + + + + | BLOOD | [id number] | | [facility] | | | PRODUCT [...] | + + + + + | [facility] | [address] | [place] [address] | | | SERVICES, | [address] [...] + + + + | PRODUCT | [id number] | | [facility] | | | UNIT [...] + + + + | EXPIRATION | [id number] | | [facility] | | | DATE [...] + + + + | BLOOD | [id number] | | [facility] | | | PRODUCT [...] | + + + + + | [facility] | [address] | [place] [address] | | | SERVICES, | [address] [...] + + + + | PRODUCT | [id number] | | [facility] | | | UNIT [...] + + + + | EXPIRATION | [id number] | | [facility] | | | DATE [...] + + + + | BLOOD | [id number] | | [facility] | | | PRODUCT [...] | + + + + + | [facility] | [address] [facility] | [place] [address] | | | SERVICES, | [address] [...] + + + + | PRODUCT | [id number] | | [facility] | | | UNIT [...] + + + + | EXPIRATION | [id number] | | [facility] | | | DATE [...] + + + + | BLOOD | [id number] | | [facility] | | | PRODUCT [...] [facility] | [address] | [place] [address] | | | SERVICES, | [address] [...] [facility] | [address] | [place], [place] | | | [place] SPANN OF [place] | [address] | [address] | | | TESTS | | | [...] TO | [address] | [place], [place] | | | [place] SPANN OF [place] | [facility] | [address] | | | TESTS | | | [...] | + + + + + | [facility] | [address] | [place] [address] | | | SERVICES, CORE | MOISES [...] [facility] | [address] | [place] [address] | | | SERVICES, CORE | PARK [...] equation recommended by the National | [facility] | | Kidney Disease [...] LABORATORY | [address] | [place] [address] | | | SERVICES, CORE | PARK [...] | + + + + + | [facility] | [address] | [place] [address] | | | SERVICES, CORE | [address] | | | + + + + + MAGNESIUM, PLASMA (08/15/2019 4:54 AM PDT) + +-------+ + + + | Component | Value | Ref Range | Performed | Pathologist | | | | | At | Signature | + +-------+ + + + | MAGNESIUM,P | 2.2 | 1.6 - 2.6 mg/dL | [facility] [...] [facility] | [address] | [place] [address] | | | SERVICES, ARTIS | MOISES [...] - [facility] | [address] | [place], [place] | | | MARIA INES POINT OF CARE | [address] | [address] | | | TESTS | | | [...] TO | [address] | [place], [place] | | | HALLEY SPANN OF CARE | [address] | [address] | | | TESTS | | | [...] [facility] | [address] | [place], [place] | | | MARIA INES POINT OF CARE | [address] | [address] | | | TESTS | | | [...] + + + + + | [facility] | [address] | [place] [address] | | | SERVICES, CORE | [address] | | | + + + + + CULTURE, BLOOD BACTI & YEAST SJEAL (08/14/2019 12:54 PM PDT) + + + [...] | + + + + + | [facility] | [address] | [place] [address] | | | CLAUDIA, CORE | [address] | | | [...] [facility] | [address] | [place], [place] | | | MARIA INES POINT OF CARE | [address] | [address] | | | TESTS | | | [...] TO | [address] | [place], [place] | | | MARIA INES POINT OF CARE | [address] | [address] | | | TESTS | | | [...] [facility] | [address] | [place] [address] | | | SERVICES, CORE | MOISES [...] + + + + + | [facility] | [address] | [place] [address] | | | SERVICES, CORE | MOISES [...] equation recommended by the National | [facility] | | Kidney Disease [...] [facility] | [address] | [place] [address] | | | SERVICES, CORE | [address] [...] | + + + + + | [facility] | [address] [facility] | [place] [address] | | | SERVICES, CORE | [address] | | | + + + + + MAGNESIUM, PLASMA (08/14/2019 5:47 AM PDT) + +-------+ + + + | Component | Value | Ref Range | Performed | Pathologist | | | | | At | Signature | + +-------+ + + + | MAGNESIUM,P | 2.3 | 1.6 - 2.6 mg/dL | [facility] | | | LASMA | | | [...] + + + + + | [facility] | [address] [facility] | [place] [address] | | | SERVICES, CORE | PARK [...] [facility] | [address] | [place], [place] | | | [place] SPANN OF [place] | [facility] | [address] | | | TESTS | | | [...] (H) | 70 - 99 mg/dL | [facility] - | | | GLUCOSE, | | [...] TO | [address] | [place], [place] | | | MARIA INES POINT OF CARE | [address] | [address] | | | TESTS | | | [...] TO | [address] | [place], [place] | | | [place] SPANN [place] | [facility] | [address] | | | TESTS | | | [...] [facility] | [address] | [place], [place] | | | HALLEY SPANN OF CARE | [facility] | [address] | | | TESTS | | | [...] (H) | 70 - 99 mg/dL | [facility] - | | | GLUCOSE, | | [...] TO | [address] | [place], [place] | | | HALLEY SPANN OF CARE | [address] | [address] | | | TESTS | | | [...] [facility] | [address] | [place], [place] | | | [place] | [address] | [address] | | | TESTS | | | [...] | + + + + + | [facility] | [address] [facility] | [place] [address] | | | SERVICES, CORE | PARK [...] [facility] | [address] | [place] [address] | | | SERVICES, CORE | MOISES [...] equation recommended by the National | [facility] | | Kidney Disease [...] [facility] | [address] | [place] [address] | | | CLAUDIA, ARTIS | PARK [...] | + + + + + | [facility] | [address] | [place] [address] | | | SERVICES, CORE | MOISES [...] [facility] | [address] | [place] [address] | | | SERVICES, CORE | MOISES [...] [facility] | [address] | [place], [place] | | | [place] | [facility] | [address] | | | TESTS | | | [...] TO | [address] | [place], [place] | | | MARIA INES POINT OF CARE | [address] | [address] | | | TESTS | | | [...] [facility] | [address] | [place], [place] | | | HILL, POINT OF CARE | [address] | [address] | | | TESTS | | | [...] [facility] | [address] | [place] | | | [place] | [address] | [address] | | | TESTS | | | [...] TO | [address] | [place], [place] | | | MARIA INES POINT OF CARE | [address] | [address] | | | TESTS | | | [...] | + + + + + | [facility] | [address] | [place] [address] | | | SERVICES, CORE | MOISES [...] [facility] | [address] | [place] [address] | | | SERVICES, CORE | MOISES [...] equation recommended by the National | [facility] | | Kidney Disease [...] [facility] | [address] | [place] [address] | | | SERVICES, CORE | PARK [...] | + + + + + | [facility] | [address] | [place] [address] | | | SERVICES, CORE | MOISES [...] [facility] | [address] | [place] [address] | | | SERVICES, CORE | PARK [...] [facility] | [address] | [place], [place] | | | [place] | [facility] | [address] | | | TESTS | | | [...] TO | [address] | [place], [place] | | | [place] | [address] | [address] | | | TESTS | | | [...] [facility] | [address] | [place] | | | HALLEY SPANN OF CARE | [address] | [address] | | | TESTS | | | [...] - [facility] | [address] | [place], [place] | | | HALLEY SPANN OF CARE | [address] | [address] | | | TESTS | | | [...] TO | [address] | [place], [place] | | | [place] | [address] | [address] | | | TESTS | | | [...] [facility] | [address] | [place], [place] | | | HALLEY SPANN OF CARE | [address] | [address] | | | TESTS | | | [...] | [facility] | [address] | [place], [place] | | | MARIA INES POINT OF [facility] | [address] | [address] | | | TESTS | | | [...] [facility] | [address] | [place] [address] | | | SERVICES, CORE | PARK [...] | + + + + + | [facility] | [address] [facility] | [place] [address] | | | SERVICES, [facility] | [address] | | | + [...] | + + + + + | [facility] | [address] | [place] [address] | | | ARTIS TAYLOR | MOISES [...] + + + + + | [facility] | [address] | [place] [address] | | | SERVICES, CORE | PARK [...] | + + + + + | [facility] | [address] | [place] [address] | | | SERVICES, CORE | MOISES [...] MARQUAM | [address] | [place], [place] | | | HALLEY SPANN OF RAMILA | [facility] | [address] | | | TESTS | | | [...] JJAM | [address] | [place], [place] | | | HALLEY SPANN OF CARE | [facility] | [address] | | | TESTS | | | [...] TO | [address] | [place], [place] | | | MARIA INES POINT OF CARE | [facility] | [address] | | | TESTS | | | [...] MARQUAM | [address] | [place], [place] | | | HALLEY SPANN OF RAMILA | [address] | [address] | | | TESTS | | | [...] - ZULEIKA | [address] | [place], [place] | | | HALLEY SPANN OF CARE | [address] | [address] | | | TESTS | | | [...] (H) | 70 - 99 mg/dL | [facility] - | | | GLUCOSE, | | [...] TO | [address] | [place], [place] | | | HALLEY SPANN OF CARE | [address] | [address] | | | TESTS | | | [...] + + + + + | [facility] | [address] | [place] [address] | | | SERVICES, CORE | PARK [...] (H) | 0.90 - 1.20 INR | [facility] | | | | | | [facility] [...] + + + + + | [facility] | [address] | [place] [address] | | | SERVICES, CORE | MOISES [...] equation recommended by the National | [facility] | | Kidney Disease [...] [facility] | [address] | [place] [address] | | | SERVICES, CORE | PARK [...] + + + + + | [facility] | [address] | [place] [address] | | | SERVICES, CORE | MOISES [...] + + + + + | [facility] | [address] | [place] [address] | | | SERVICES, CORE | MOISES [...] JJAM | [address] | [place], [place] | | | HALLEY SPANN OF CARE | [facility] | [address] | | | TESTS | | | [...] (H) | 70 - 99 mg/dL | [facility] - | | | GLUCOSE, | | [...] JJAM | [address] | [place], [place] | | | MARIA INES POINT OF CARE | [address] | [address] | | | TESTS | | | [...] + + + + + | [facility] | [address] | [place], [place] | | | HALLEY SPANN OF CARE | [facility] | [address] | | | TESTS | | | [...] MARFEAM | [address] | [place], [place] | | | HALLEY SPANN OF CARE | [facility] | [address] | | | TESTS | | | [...] (H) | 70 - 99 mg/dL | [facility] - | | | GLUCOSE, | | [...] TO | [address] | [place], [place] | | | [facility] | [address] | [address] | | | TESTS | | | [...] [facility] | [address] | [place] [address] | | | SERVICES, CORE | PARK [...] | + + + + + | [facility] | [address] [facility] | [place] [address] | | | SERVICES, CORE | MOISES [...] equation recommended by the National | [facility] | | Kidney Disease [...] + + + + + | [facility] | [address] [facility] | [place] [address] | | | SERVICES, CORE | PARK [...] [facility] | [address] | [place] [address] | | | CLAUDIA, ARTIS | PARK [...] | + + + + + | [facility] | [address] | [place] [address] | | | SERVICES, CORE | MOISES [...] [facility] | [address] | [place], [place] | | | MARIA INES POINT OF CARE | [address] | [address] | | | TESTS | | | [...] (H) | 70 - 99 mg/dL | [place] - | | | GLUCOSE, | | [...] [facility] | [address] | [place], [place] | | | [facility]ARE | [facility] | [address] | | | TESTS | | | [...] TO | [address] | [place], [place] | | | [facility] IN[facility] POINT [facility] CARE | [address] | [address] | | | TESTS | | | [...] [facility] | [address] | [place], [place] | | | MARIA INES POINT OF CARE | [facility] | [address] | | | TESTS | | | [...] [facility] | [address] | [place], [place] | | | [facility] POINT [facility] CARE | [address] | [address] | | | TESTS | | | [...] TO | [address] | [place], [place] | | | [facility] POINT [facility] CARE | [address] | [address] | | | TESTS | | | [...] | + + + + + | [facility] | [address] | [place] [address] | | | SERVICES, CORE | MOISES [...] + + | [facility] | [address] | [place] [address] | | | SERVICES, CORE | MOISES [...] equation recommended by the National | [facility] | | Kidney Disease [...] [facility] | [address] | [place] [address] | | | SERVICES, CORE | PARK [...] | + + + + + | [facility] | [address] | [place] [address] | | | SERVICES, CORE | MOISES [...] [facility] | [address] | [place] [address] | | | SERVICES, CORE | PARK [...] [facility] | [address] | [place], [place] | | | [facility] | [address] | [address] | | | TESTS | | | [...] TO | [address] | [place], [place] | | | [facility] | [address] | [address] | | | TESTS | | | [...] [facility] | [address] | [place], [place] | | | [facility] | [address] | [address] | | | TESTS | | | [...] - [facility] | [address] | [place], [place] | | | [facility] | [address] | [address] | | | TESTS | | | [...] TO | [address] | [place], [place] | | | [facility] | [address] | [address] | | | TESTS | | | [...] + + | [facility] | [address] [facility] | [place] [address] | | | SERVICES, CORE | PARK [...] equation recommended by the National | [facility] | | Kidney Disease [...] + + + + + | [facility] | [address] | [place] [address] | | | SERVICES, CORE | MOISES [...] + + + + + | [facility] | [address] | [place] [address] | | | SERVICES, CORE | PARK [...] | + + + + + | [facility] | [address] | [place] [address] | | | ARTIS TAYLOR | MOISES [...] (H) | 70 - 99 mg/dL | [facility] - | | | GLUCOSE, | | [...] [facility] | [address] | [place], [place] | | | MAR[facility] INES POINT OF CARE | [address] | [address] | | | TESTS | | | [...] + + | Performing | Address | City/State/[facility] | Phone Number | | Organization | | | | + + + + + | [facility] | [address] | [place], [place] | | | [facility] [place] | [facility] | [address] | | | TESTS | | | [...] [facility] | [address] | [place], [place] | | | [facility] CARE | [facility] | [address] | | | TESTS | | | [...] (H) | 70 - 99 mg/dL | [facility] - | | | GLUCOSE, | | [...] TO | [address] | [place], [place] | | | [facility] | [address] | [address] | | | TESTS | | | [...] [facility] | [address] | [place] [address] | | | SERVICES, CORE | PARK [...] | + + + + + | [facility] | [address] | [place] [address] | | | SERVICES, CORE | MOISES [...] equation recommended by the National | [facility] | | Kidney Disease [...] + + + + + | [facility] | [address] | [place] [address] | | | SERVICES, ARTIS | MOISES [...] [facility] | [address] | [place] [address] | | | CLAUDIA, ARTIS | PARK [...] | + + + + + | [facility] | [address] | [place] [address] | | | SERVICES, CORE | MOISES [...] [facility] | [address] | [place], [place] | | | HILL, POINT OF CARE | [address] | [address] | | | TESTS | | | [...] [facility] | [address] | [place], [place] | | | [facility] [place] | [address] | [address] | | | TESTS | | | [...] TO | [address] | [place], [place] | | | [facility] IN[facility] POINT [facility] CARE | [address] | [address] | | | TESTS | | | [...] [facility] | [address] | [place], [place] | | | HILL, POINT OF CARE | [address] | [address] | | | TESTS | | | [...] [facility] | [address] | [place], [place] | | | [facility] [place] | [facility] | [address] | | | TESTS | | | [...] TO | [address] | [place], [place] | | | [facility] POINT OF CARE | [address] | [address] | | | TESTS | | | [...] [facility] | [address] | [place] [address] | | | SERVICES, CORE | PARK [...] MDRD equation recommended by the National | [facility] | | Kidney Disease Education Program. Estimated [...] | + + + + + | [facility] | [address] | [place] [address] | | | SERVICES, CORE | PARK [...] [facility] | [address] | [place] [address] | | | ARTIS TAYLOR | MOISES [...] + + + + + | [facility] | [address] | [place] [address] | | | SERVICES, CORE | MOISES [...] (H) | 70 - 99 mg/dL | [facility] - | | | GLUCOSE, | | [...] TO | [address] | [place], [place] | | | MARIA INES [facility] | [address] | [address] | | | TESTS | | | [...] [facility] | [address] | [place] | | | [facility] [place] | [address] | [address] | | | TESTS | | | [...] + | [facility] | [address] | [place], [place] | | | [place] [facility] | [address] | [address] | | | TESTS | | | [...] | + + + + + | [facility] | [address] | [place] [address] | | | SERVICES, CORE | MOISES [...] + + + + + | [facility] | [address] [facility] | [place] [address] | | | ARTIS TAYLOR | MOISES [...] + + + + + | [facility] | [address] | [place] [address] | | | ARTIS TAYLOR | MOISES [...] (H) | 70 - 99 mg/dL | [facility] - | | | GLUCOSE, | | [...] [facility] | [address] | [place], [place] | | | [facility] INES POINT OF CARE | [address] | [address] | | | TESTS | | | [...] TO | [address] | [place] | | | [facility] [place] | [facility] | [address] | | | TESTS | | | [...] - [facility] | [address] | [place], [place] | | | MARIA INES POINT OF CARE | [facility] | [address] | | | TESTS | | | [...] [facility] | [address] | [place] [address] | | | SERVICES, CORE | PARK [...] equation recommended by the National | [facility] | | Kidney Disease [...] [facility] | [address] | [place] [address] | | | SERVICES, CORE | PARK [...] | + + + + + | [facility] | [address] | [place] [address] | | | SERVICES, CORE | MOISES [...] [facility] | [address] | [place] [address] | | | SERVICES, CORE | PARK [...] + + + + + | [facility] | [address] [facility] | [place] [address] | | | SERVICES, CORE | MOISES [...] (H) | 70 - 99 mg/dL | [facility] - | | | GLUCOSE, | | [...] TO | [address] | [place], [place] | | | [facility] INES POINT OF CARE | [address] | [address] | | | TESTS | | | [...] [facility] | [address] | [place], [place] | | | MAR[facility] INES POINT OF CARE | [address] | [address] | | | TESTS | | | [...] [facility] | [address] | [place], [place] | | | MAR[facility] INES POINT OF CARE | [facility] | [address] | | | TESTS | | | [...] TO | [address] | [place], [place] | | | [facility] INES POINT OF CARE | [address] | [address] | | | TESTS | | | [...] [facility] | [address] | [place] | | | [facility] | [address] | [address] | | | TESTS | | | [...] (H) | 70 - 99 mg/dL | [place] - | | | GLUCOSE, | | [...] [facility] | [address] | [place], [place] | | | [facility] CARE | [facility] | [address] | | | TESTS | | | [...] TO | [address] | [place], [place] | | | MAR[facility] INES POINT OF CARE | [address] | [address] | | | TESTS | | | [...] + + + + + | [facility] | [address] | [place] [address] | | | SERVICES, CORE | [address] | | | + + + + + MAGNESIUM, PLASMA (08/03/2019 7:14 AM PDT) + +-------+ + + + | Component | Value | Ref Range | Performed | Pathologist | | | | | At | Signature | + +-------+ + + + | MAGNESIUM,P | 2.0 | 1.6 - 2.6 mg/dL | [place] | | | JOSE | | | [...] [facility] | [address] | [place] [address] | | | SERVICES, CORE | PARK [...] equation recommended by the National | [facility] | | Kidney Disease [...] | + + + + + | [facility] | [address] | [place] [address] | | | SERVICES, [facility] | [address] | | | + + + + + CAPILLARY BLOOD GLUCOSE (NO CHG), POC (08/03/2019 6:05 AM PDT) + +---------+ + + + | Component | Value | Ref Range | Performed | Pathologist | | | | | At | Signature | + +---------+ + + + | BLOOD | 387 (H) | 70 - 99 mg/dL | [facility] - | | | GLUCOSE, | | [...] TO | [address] | [place], [place] | | | MARIA INES POINT OF CARE | [facility] | [address] | | | TESTS | | | [...] ZU[facility]IKA | [address] | [place], [place] | | | [facility] [place] | [address] | [address] | | | TESTS | | | [...] - Z[facility] | [address] | [place], [place] | | | [facility] SPANN OF CARE | [facility] | [address] | | | TESTS | | | [...] (H) | 70 - 99 mg/dL | [facility] - | | | GLUCOSE, | | [...] TO | [address] | [place], [place] | | | [facility] | [facility] | [address] | | | TESTS | | | [...] [facility] | [address] | [place], [place] | | | [facility] [place] | [address] | [address] | | | TESTS | | | [...] ZU[facility]A | [address] | [place], [place] | | | [facility] SPANN OF CARE | [facility] | [address] | | | TESTS | | | [...] (H) | 70 - 99 mg/dL | [facility] - | | | GLUCOSE, | | [...] TO | [address] | [place], [place] | | | MARIA INES POINT OF CARE | [facility] | [address] | | | TESTS | | | [...] [facility] | [address] | [place] [address] | | | SERVICES, CORE | PARK [...] + + + + + | [facility] | [address] [facility] | [place] [address] | | | SERVICES, CORE | MOISES [...] equation recommended by the National | [facility] | | Kidney Disease [...] + + + + + | [facility] | [address] | [place] [address] | | | ARTIS TAYLOR | PARK [...] [facility] | [address] | [place], [place] | | | [facility] [place] | [address] | [address] | | | TESTS | | | [...] ZULEIKA | [address] | [place], [place] | | | MARIA INES [facility] | [address] | [address] | | | TESTS | | | | + + + + + X-RAY ABD LTD FEEDING TUBE EVAL PORTABLE (08/01/2019 6:28 PM PDT) + + | Specimen | + + | | + + + + + | Narrative | Performed At | + + + | EXAM: DE ABD LTD FEEDING TUBE EVAL INDICATION: Confirm [...] Interface - 08/02/2019 10:15 AM PDT EXAM: DE ABD LTD | | FEEDING TUBE EVAL [...] [facility] | [address] | [place], [place] | | | [facility] [place] | [address] | [address] | | | TESTS | | | [...] + + + + | [facility] | 481 | ms | [facility] [...] + + | [facility] | [address] | [place], [place] | | | CARDIOLOGY | [address] | [address] | | + + + + + [...] [facility] | [address] | [place], [place] | | | [facility]ARE | [address] | [address] | | | TESTS | | | [...] TO | [address] | [place], [place] | | | MARIA INES POINT OF CARE | [address] | [address] | | | TESTS | | | | + + + + + MAGNESIUM, PLASMA (08/01/2019 7:56 AM PDT) + +-------+ + + + | Component | Value | Ref Range | Performed | Pathologist | | | | | At | Signature | + +-------+ + + + | MAGNESIUM,P | 1.7 | 1.6 - 2.6 mg/dL | [facility] [...] [facility] | [address] | [place] [address] | | | CLAUDIA, ARTIS | PARK [...] equation recommended by the National | [facility] | | Kidney Disease [...] + + + + + | [facility] | [address] | [place] [address] | | | SERVICES, CORE | PARK [...] + + + + + | [facility] | [address] [facility] | [place] [address] | | | SERVICES, CORE | PARK [...] | + + + + + | [facility] | [address] | [place] [address] | | | SERVICES, CORE | MOISES [...] [facility] | [address] | [place] | | | [facility] [place] | [facility] | [address] | | | TESTS | | | [...] (H) | 70 - 99 mg/dL | [facility] - | | | GLUCOSE, | | [...] TO | [address] | [place], [place] | | | [facility] SPANN OF CARE | [address] | [address] | | | TESTS | | | [...] [facility]FE[facility] | [address] | [place] | | | MARIA INES POINT OF CARE | [address] | [address] | | | TESTS | | | [...] ZULEIKA | [address] | [place] | | | MARIA INES [facility] | [address] | [address] | | | TESTS | | | [...] [facility] | [address] | [place] [address] | | | SERVICES, CORE | PARK [...] | + + + + + | [facility] | [address] [facility] | [place] [address] | | | SERVICES, CORE | MOISES [...] + + + + + | [facility] [employer] | [address] | [place] [address] | | | SERVICESARTIS | [address] | | | + [...] + + + | SE[facility] TO | [address] | [place] | | | [facility] [place] | [address] | [address] | | | TESTS | | | [...] [facility] | [address] | [place], [place] | | | MARIA INES POINT OF CARE | [address] | [address] | | | TESTS | | | [...] ZULEIKA | [address] | [place], [place] | | | [place] | [address] | [address] | | | TESTS | | | [...] + + + + | PRODUCT | [id number] | | [facility] | | | UNIT [...] + + + + | EXPIRATION | [id number] | | [facility] | | | DATE [...] + + + + | BLOOD | [id number] | | [facility] | | | PRODUCT [...] + + + + + | [facility] | [address] | [place] [address] | | | SERVICES, | [address] [...] (H) | 70 - 99 mg/dL | [facility] - | | | GLUCOSE, | | [...] TO | [address] | [place], [place] | | | [facility] [place] | [facility] | [address] | | | TESTS | | | | + + + + + MAK, ADD ON (07/30/2019 5:23 AM PDT) + [...] [facility] | [address] | [place] [address] | | | SERVICES, CORE | PARK [...] [facility] | [address] | [place] [address] | | | SERVICES, CORE | PARK [...] | + + + + + | [facility] | [address] [facility] | [place] [address] | | | SERVICES, [facility] | [address] | | | + [...] mL/min/1.73 sq m Chronic Kidney | SERVICES, [facility] | | Disease <15 mL/min/1.73 sq m [...] + + + + + | [facility] | [address] | [place] [address] | | | ARTIS TAYLOR | MOISES [...] TO | [address] | [place], [place] | | | [facility] [place] | [facility] | [address] | | | TESTS | | | [...] [facility] | [address] | [place], [place] | | | MARIA INES [facility] | [facility] | [address] | | | TESTS | | | [...] 12 Hr. fluid restriction: >850 mOsm/kg | ARTIS TAYLOR | + + + + + + + + | Performing | Address | City/State/Zipcode | Phone Number | | Organization | | | | + + + + + | [facility] | [address] | [place] [address] | | | SERVICES, CORE | PARK [...] | [facility] | | | GRAVITY | [place] performed by | | LABORATORY | | [...] + + + + + | [facility] | [address] | [place] [address] | | | SERVICES, CORE | PARK [...] [facility] | [address] | [place] [address] | | | SERVICES, CORE | PARK [...] + + + + + | [facility] | [address] [facility] | [place] [address] | | | ARTIS TAYLOR | MOISES [...] [facility] | [address] | [place] [address] | | | ARTIS TAYLOR | MOISES [...] + + + + + | [facility] | [address] | [place] [address] | | | SERVICES, CORE | MOISES [...] (H) | 70 - 99 mg/dL | [facility] - | | | GLUCOSE, | | [...] TO | [address] | [place], [place] | | | [facility] SPANN [facility] CARE | [address] | [address] | | | TESTS | | | [...] [facility] | [address] | [place] [address] | | | SERVICES, CORE | MOISES [...] [facility] | [address] | [place] | | | [facility] OF [facility] | [facility] | [address] | | | TESTS | | | [...] | 0.00 | 0.00 - 0.02 | [facility] | | | | | K/cu mm [...] | + + + + + | [facility] | [address] | [place] [address] | | | SERVICES, CORE | MOISES [...] | + + + + + | [facility] | [address] [facility] | [place] [address] | | | SERVICES, CORE | MOISES [...] | + + + + + | [facility] | [address] | [place] [address] | | | SERVICES, CORE | MOISES [...] [facility] | [address] | [place], [place] | | | MARIA INES POINT OF CARE | [address] | [address] | | | TESTS | | | [...] ZULEIKA | [address] | [place], [place] | | | [facility] [place] | [address] | [address] | | | TESTS | | | [...] [facility] | [address] | [place] [address] | | | SERVICES, CORE | PARK [...] | + + + + + | [facility] | [address] | [place] [address] | | | SERVICES, [facility] | [address] | | | + + + + + CAPILLARY BLOOD GLUCOSE (NO CHG), POC (07/28/2019 9:06 PM PDT) + +---------+ + + + | Component | Value | Ref Range | Performed | Pathologist | | | | | At | Signature | + +---------+ + + + | BLOOD | 241 (H) | 70 - 99 mg/dL | [facility] - | | | GLUCOSE, | | [...] TO | [address] | [place], [place] | | | [facility] SPANN OF CARE | [facility] | [address] | | | TESTS | | | [...] ZULEIKA | [address] | [place], [place] | | | [facility] [facility] [place] | [address] | [address] | | | TESTS | | | [...] | + + + + + | [facility] | [address] [facility] | [place] [address] | | | SERVICES, CORE | MOISES [...] MARQUAM | [address] | [place], [place] | | | [facility] | [address] | [address] | | | TESTS | | | [...] | + + + + + | [facility] | [address] | [place] [address] | | | SERVICES, CORE | MOISES [...] + | [facility] | [address] | [place] [address] | | | SERVICES, CORE | PARK [...] MDRD equation recommended by the National | [facility] | | Kidney Disease Education Program. Estimated [...] | + + + + + | [facility] | [address] [facility] | [place] [address] | | | SERVICES, CORE | MOISES [...] | | | LABORATORY | | | RAMNÓ | | | SERVICES, | | | [...] | + + + + + | [facility] | [address] | [place] [address] | | | SERVICES, CORE | MOISES [...] MARQUAM | [address] | [place], [place] | | | [facility] | [address] | [address] | | | TESTS | | | [...] | | | LABORATORY | | | CLAUDIA, ARTIS | + + + + + + + + | Performing | Address | City/State/Zipcode | Phone Number | | Organization | | | | + + + + + | [facility] | [address] | [place] [address] | | | SERVICES, CORE | MOISES [...] ZULEIKA | [address] | [place], [place] | | | [facility] | [facility] | [address] | | | TESTS | | | [...] + + + + | PRODUCT | [id number] | | [facility] | | | UNIT [...] + + + + | EXPIRATION | [id number] | | [facility] | | | DATE [...] + + + + | BLOOD | [id number] | | [facility] | | | PRODUCT [...] + + + + + | [facility] | [address] | [place] [address] | | | SERVICES, | [address] [...] (H) | 70 - 99 mg/dL | [facility] - | | | GLUCOSE, | | [...] TO | [address] | [place], [place] | | | [facility] | [facility] | [address] | | | TESTS | | | [...] | + + + + + | [facility] | [address] | [place] [address] | | | SERVICES, CORE | [address] | | | + + + + + X-RAY ABD LTD FEEDING TUBE EVAL PORTABLE (07/27/2019 12:49 PM PDT) + + | Specimen | + + | | + + + + + | Narrative | Performed At | + + + | EXAM: DE ABD LTD FEEDING TUBE EVAL INDICATION: ensure [...] Note | + + | Service Account, RadiYear Up Res In Interface - 07/27/2019 12:54 PM PDT EXAM: DE LEIGH LTD | | FEEDING TUBE EVAL INDICATION: [...] [facility] | [address] | [place] [address] | | | SERVICES, | [address] [...] + + + + + | [facility] | [address] | [place] [address] | | | SERVICES, | [address] [...] [facility] | [address] | [place] [address] | | | SERVICES, CORE | PARK [...] + + + + + | [facility] | [address] | [place] [address] | | | SERVICES, CORE | MOISES [...] equation recommended by the National | [facility] | | Kidney Disease [...] + + + + + | [facility] | [address] | [place] [address] | | | CLAUDIA, ARTIS | MOISES [...] MARQUAM | [address] [address] | [place], [place] | | | [facility] | [address] | [address] | | | TESTS | | | [...] ZULEIKA | [address] | [place], [place] | | | MARIA INES [facility] | [address] | [address] | | | TESTS | | | [...] Preliminary: Johnathon Badillo MD Dictation initiated: Johnathon Badillo MD 07/26/2019 4:22 PM [...] TO | [address] | [place], [place] | | | MARIA INES PO[facility] | [address] | [address] | | | TESTS | | | [...] + + + + | FRANCE-BELLA | 526 | ms | [facility] [...] DEPT OF | [address] | [place], [place] | | | CARDIOLOGY | [address] | [address] | | + + + + + CULTURE, BLOOD BACTI & YEAST SEJAL (07/26/2019 10:51 AM PDT) + + + [...] [facility] | [address] | [place] [address] | | | SERVICES, CORE | [address] | | | + + + + + CULTURE, BLOOD BACTI & YEAST SEJAL (07/26/2019 10:51 AM PDT) + + + [...] | + + + + + | [facility] | [address] | [place] [address] | | | SERVICES, CORE | MOISES [...] MARQUAM | [address] | [place], [place] | | | MARIA INES [facility] | [address] | [address] | | | TESTS | | | [...] [facility] | [address] | [place] [address] | | | SERVICES, CORE | [address] [...] [facility] | [address] | [place] [address] | | | SERVICES, CORE | PARK [...] | + + + + + | [facility] | [address] [facility] | [place] [address] | | | SERVICES, ARTIS | MOISES [...] equation recommended by the National | [facility] | | Kidney Disease Education Program. Estimated GFR Interpretive | LABORATORY | | Information: <60 mL/min/1.73 sq m Chronic Kidney | SERVICES, [facility] | | Disease <15 mL/min/1.73 sq m [...] + + + + + | [facility] | [address] | [place] [address] | | | SERVICES, CORE | MOISES [...] - MARQUAM | [address] | [place], [place] | | | [facility] | [address] | [address] | | | TESTS | | | [...] TO | [address] | [place], [place] | | | [facility] | [address] | [address] | | | TESTS | | | [...] MARQUAM | [address] | [place], [place] | | | [facility] | [address] | [address] | | | TESTS | | | [...] | + + + + + | [facility] | [address] | [place] [address] | | | ARTIS TAYLOR | MOISES [...] (L) | 70 - 99 mg/dL | [facility] - | | | GLUCOSE, | | [...] TO | [address] | [place], [place] | | | MAR[facility] INES [facility] | [address] | [address] | | | TESTS | | | [...] + + + + + | [facility] | [address] | [place] [address] | | | SERVICES, CORE | MOISES [...] (H) | 70 - 99 mg/dL | [facility] - | | | GLUCOSE, | | [...] TO | [address] | [place] | | | MARIA INES [facility] | [address] | [address] | | | TESTS | | | [...] MARQUAM | [address] | [place], [place] | | | [facility] | [address] | [address] | | | TESTS | | | [...] | + + + + + | [facility] | [address] | [place] [address] | | | SERVICES, CORE | MOISES [...] [facility] | [address] | [place] [address] | | | SERVICES, CORE | [address] [...] equation recommended by the National | [facility] | | Kidney Disease [...] | + + + + + | [facility] | [address] | [place] [address] | | | SERVICES, CORE | MOISES [...] TO | [address] | [place], [place] | | | EUGENIO SPANN | [address] | [address] | | | TESTS | | | [...] ZULEIKA | [address] | [place], [place] | | | HAL[facility] SPANN [facility] | [facility] | [address] | | | TESTS | | | [...] (H) | 70 - 99 mg/dL | [facility] - | | | GLUCOSE, | | [...] TO | [address] | [place], [place] | | | [facility] INES [facility] | [address] | [address] | | | TESTS | | | [...] ZULEIKA | [address] | [place], [place] | | | [facility] | [address] | [address] | | | TESTS | | | [...] | + + + + + | [facility] | [address] [facility] | [place] [address] | | | SERVICES, CORE | MOISES [...] [facility] | [address] | [place] [address] | | | SERVICES, CORE | PARK [...] equation recommended by the National | [facility] | | Kidney Disease [...] + + + + + | [facility] | [address] | [place] [address] | | | SERVICES, CORE | MOISES [...] (H) | 70 - 99 mg/dL | [facility] - | | | GLUCOSE, | | [...] | SEJLA TO | [address] | [place], [place] | | | MARIA INES [facility] | [address] | [address] | | | TESTS | | | [...] MARQUAM | [address] | [place], [place] | | | MARIA INES PO[facility] | [address] | [address] | | | TESTS | | | [...] + + + + + | [facility] | [address] | [place] [address] | | | SERVICES, CORE | MOISES [...] (H) | 70 - 99 mg/dL | [facility] - | | | GLUCOSE, | | [...] TO | [address] | [place], [place] | | | [facility] | [address] | [address] | | | TESTS | | | [...] DEPT OF | [address] | [place], [place] | | | CARDIOLOGY | [address] | [address] | | + + + + + [...] ZULEIKA | [address] | [place] | | | MARIA INES POINT [facility] | [facility] | [address] | | | TESTS | | | [...] [facility] | [address] | [place] [address] | | | CLAUDIA, CORE | [address] | | | [...] | + + + + + | [facility] | [address] [facility] | [place] [address] | | | SERVICES, CORE | MOISES [...] | + + + + + | [facility] | [address] | [place] [address] | | | SERVICES, CORE | MOISES [...] TO | [address] | [place] | | | MARIA INES PO[facility]ARE | [address] | [address] | | | TESTS | | | [...] MARQUAM | [address] | [place] | | | [facility] | [address] | [address] | | | TESTS | | | [...] MARQUAM | [address] | [place], [place] | | | HAL[facility] SPANN OF [facility] | [facility] | [address] | | | TESTS | | | [...] (H) | 70 - 99 mg/dL | [facility] - | | | GLUCOSE, | | [...] | SEJAL TO | [address] | [place] | | | [facility] | [address] | [address] | | | TESTS | | | [...] MARFEAM | [address] | [place] | | | MARIA INES PO[facility] | [address] | [address] | | | TESTS | | | [...] [facility] | [address] | [place] [address] | | | SERVICES, CORE | PARK [...] [facility] | [address] | [place] [address] | | | SERVICES, CORE | [address] [...] + + + + + | [facility] | [address] [facility] | [place] [address] | | | ARTIS TAYLOR | MOISES [...] TO | [address] | [place], [place] | | | MARIA INES PO[facility] CARE | [address] | [address] | | | TESTS | | | [...] [facility] | [address] | [place] [address] | | | SERVICES, CORE | MOISES [...] ZULEIKA | [address] | [place], [place] | | | MARIA INES POINT [facility]ARE | [facility] | [address] | | | TESTS | | | [...] (H) | 70 - 99 mg/dL | [facility] - | | | GLUCOSE, | | [...] TO | [address] | [place] | | | [facility] SP[facility] C[facility] | [facility] | [address] | | | TESTS | | | [...] MARQUAM | [address] | [place], [place] | | | [facility] | [address] | [address] | | | TESTS | | | [...] [facility] | [address] | [place] [address] | | | SERVICES, CORE | [address] [...] + + + + + | [facility] | [address] | [place] [address] | | | SERVICES, CORE | [address] | | | + + + + + MAGNESIUM, PLASMA (07/21/2019 3:44 AM PDT) + +-------+ + + + | Component | Value | Ref Range | Performed | Pathologist | | | | | At | Signature | + +-------+ + + + | MAGNESIUM,P | 1.9 | 1.6 - 2.6 mg/dL | [facility] [...] + + + + + | [facility] | [address] | [place] [address] | | | SERVICES, CORE | PARK [...] + + + + + | [facility] | [address] [facility] | [place] [address] | | | SERVICES, CORE | MOISES [...] equation recommended by the National | [facility] | | Kidney Disease Education Program. Estimated GFR Interpretive | LABORATORY | | Information: <60 mL/min/1.73 sq m Chronic Kidney | SERVICES, [facility] | | Disease <15 mL/min/1.73 sq m [...] + + + + + | [facility] | [address] | [place] [address] | | | CLAUDIA, ARTIS | MOISES [...] ZULEIKA | [address] | [place], [place] | | | MARIA INES POINT OF CARE | [address] | [address] | | | TESTS | | | [...] TO | [address] | [place] | | | [facility] | [address] | [address] | | | TESTS | | | [...] + + + + + | [facility] | [address] | [place] [address] | | | SERVICES, CORE | [address] | | | + + + + + X-RAY PORTABLE CHEST 1 VIEW (07/20/2019 3:46 PM PDT) + + | Specimen | + + | | + + + + + | Narrative | Performed At | + + + | EXAM: DE CHEST 1 VIEW HISTORY: infectious workup | [facility] | | COMPARISON: 07/18/2019 FINDINGS: Interval increase [...] Interface - 07/20/2019 4:05 PM PDT EXAM: DE CHEST 1 | | VIEW HISTORY: infectious [...] | + + + + + | [facility] | [address] | [place] [address] | | | SERVICES, CORE | MOISES [...] MARQUAM | [address] | [place], [place] | | | [facility]ARE | [address] | [address] | | | TESTS | | | [...] | + + + + + | [facility] | [address] | [place] [address] | | | SERVICES, CORE | MOISES [...] + + + + | PRODUCT | [id number] | | [facility] | | | UNIT [...] + + + + | EXPIRATION | [id number] | | [facility] | | | DATE [...] + + + + | BLOOD | [id number] | | [facility] | | | PRODUCT [...] + + + + + | [facility] | [address] | [place] [address] | | | SERVICES, | [address] [...] | + + + + + | [facility] | [address] | [place] [address] | | | SERVICES, CORE | MOISES [...] + + + + | PRODUCT | [id number] | | [facility] | | | UNIT [...] + + + + | EXPIRATION | [id number] | | [facility] | | | DATE [...] + + + + | BLOOD | [id number] | | [facility] | | | PRODUCT [...] | + + + + + | [facility] | [address] | [place] [address] | | | SERVICES, | [address] [...] MARQUAM | [address] | [place], [place] | | | MARIA INES POINT [facility] CARE | [address] | [address] | | | TESTS | | | [...] - ZULEIKA | [address] | [place] | | | MARIA INES POINT OF CARE | [address] | [address] | | | TESTS | | | | + + + + + 12 LEAD ECG (07/20/2019 8:26 AM PDT) + + + + + + | Component | Value | Ref Range | Performed | Pathologist | | | | | At | Signature | + + + + + + | VENTRICULAR | 71 | bpm | [facility] | | [...] + + | [facility] | [address] | [place], [place] | | | CARDIOLOGY | [address] | [address] | | + + + + + [...] + | [facility] | [address] | [place] [address] | | | SERVICES, CORE | MOSIES [...] + + + + | PRODUCT | [id number] | | [facility] | | | UNIT [...] + + + + | EXPIRATION | [id number] | | [facility] | | | DATE [...] + + + + | BLOOD | [id number] | | [facility] | | | PRODUCT [...] | + + + + + | [facility] | [address] | [place] [address] | | | SERVICES, | [address] [...] | + + + + + | [facility] | [address] | [place] [address] | | | SERVICES, CORE | MOISES [...] + | [facility] | [address] | [place] [address] | | | SERVICES, CORE | [address] [...] equation recommended by the National | [facility] | | Kidney Disease [...] + + + + + | [facility] | [address] | [place] [address] | | | ARTIS TAYLOR | MOISES [...] + + + + | ARASELI | 547 | ms | [facility] [...] DEPT OF | [address] | [place], [place] | | | CARDIOLOGY | [address] | [address] | | + + + + + [...] MARQUAM | [address] | [place] | | | [facility] | [address] | [address] | | | TESTS | | | [...] | + + + + + | [facility] | [address] | [place] [address] | | | SERVICES, ARTIS | MOISES [...] JJAM | [address] | [place] | | | [facility] | [address] | [address] | | | TESTS | | | [...] (H) | 70 - 99 mg/dL | [facility] - | | | GLUCOSE, | | [...] JJAM | [address] | [place] | | | HAL[facility] SPANN [facility] CARE | [address] | [address] | | | TESTS | | | [...] + + + + + | [facility] | [address] [facility] | [place] [address] | | | SERVICES, ARTIS | MOISES [...] [facility] | [address] | [place] [address] | | | ARTIS TAYLOR | MOISES [...] LABORATORY | [address] | [place] [address] | | | SERVICES, CORE | [address]ARK [...] | 0.00 | 0.00 - 0.02 | [facility] | | | | | K/cu mm [...] + | [facility] | [address] | [place] [address] | | | CLAUDIA, CORE | [address] | | | + + + + + MAGNESIUM, PLASMA (07/19/2019 1:56 PM PDT) + +-------+ + + + | Component | Value | Ref Range | Performed | Pathologist | | | | | At | Signature | + +-------+ + + + | MAGNESIUM,P | 2.1 | 1.6 - 2.6 mg/dL | [facility] [...] + + | [facility] | [address] [facility] | [place] [address] | | | SERVICES, CORE | [address] [...] + + + + + | [facility] | [address] | [place] [address] | | | SERVICES, CORE | MOISES [...] (H) | 70 - 99 mg/dL | [facility] - | | | GLUCOSE, | | [...] TO | [address] | [place], [place] | | | MARIA INES POINT [facility] CARE | [address] | [address] | | | TESTS | | | [...] MARQUAM | [address] | [place] | | | HAL[facility] SPANN [facility] CARE | [address] | [address] | | | TESTS | | | [...] | + + + + + | [facility] | [address] | [place] [address] | | | SERVICES, CORE | PARK [...] [facility] | [address] | [place] [address] | | | SERVICES, ARTIS | MOISES [...] + + + + + | [facility] | [address] | [place] [address] | | | SERVICES, CORE | MOISES [...] (H) | 70 - 99 mg/dL | [facility] - | | | GLUCOSE, | | | [facility] | | | POC | | | HALLEY SAPNN | | | | | | OF [...] TO | [address] | [place] | | | HAL[facility]ANN [facility] | [address] | [address] | | | TESTS | | | [...] MARQUAM | [address] | [place], [place] | | | MARIA INES POINT OF CARE | [address] | [address] | | | TESTS | | | [...] MARQUAM | [address] | [place], [place] | | | MARIA INES POINT OF CARE | [address] | [address] | | | TESTS | | | [...] TO | [address] | [place] | | | [facility]ARE | [address] | [address] | | | TESTS | | | [...] + + + + + | [facility] | [address] | [place] [address] | | | SERVICES, CORE | MOISES [...] TO | [address] | [place] | | | HALLEY SPANN OF [facility]ILA | [facility] | [address] | | | TESTS | | | [...] MARQUAM | [address] | [place], [place] | | | HALLEY SPANN OF CARE | [facility] | [address] | | | TESTS | | | [...] (H) | 70 - 99 mg/dL | [facility] - | | | GLUCOSE, | | [...] JJAM | [address] | [place], [place] | | | HAL[facility] SPANN [facility] CARE | [address] | [address] | | | TESTS | | | [...] TO | [address] | [place] | | | HAL[facility] SPANN OF [facility] | [facility] | [address] | | | TESTS | | | [...] MARQUAM | [address] | [place] | | | MARIA INES POINT OF CARE | [address] | [address] | | | TESTS | | | [...] [facility] | [address] | [place] [address] | | | SERVICES, ARTIS | [address] [...] | + + + + + | [facility] | [address] | [place] [address] | | | SERVICES, CORE | MOISES [...] + + + + + | [facility] | [address] | [place] [address] | | | SERVICES, CORE | [address] [...] + + + + + | [facility] | [address] [facility] | [place] [address] | | | ARTIS TAYLOR | [address] | | | + + + + + [facility] (HEMOGRAM) ONLY (07/19/2019 12:01 AM PDT) + [...] | + + + + + | [facility] | [address] | [place] [address] | | | SERVICES, CORE | MOISES [...] MARQUAM | [address] | [place] | | | HALLEY SPANN [facility] CARE | [address] | [address] | | | TESTS | | | [...] MARQUAM | [address] | [place] | | | [facility] CARE | [address] | [address] | | | TESTS | | | [...] TO | [address] | [place] | | | [facility] CARE | [address] | [address] | | | TESTS | | | [...] [facility] | [address] | [place] [address] | | | SERVICES, CORE | PARK [...] | + + + + + | [facility] | [address] | [place] [address] | | | SERVICES, CORE | MOISES [...] MARQUAM | [address] | [place], [place] | | | MARIA INES POINT OF CARE | [address] | [address] | | | TESTS | | | [...] - [facility] | [address] | [place], [place] | | | MARIA INES POINT [facility] CARE | [address] | [address] | | | TESTS | | | [...] TO | [address] | [place], [place] | | | [facility] | [address] | [address] | | | TESTS | | | [...] + + + + | PRODUCT | [id number] | | [facility] | | | UNIT [...] + + + + | EXPIRATION | [id number] | | [facility] | | | DATE [...] + + + + | BLOOD | [id number] | | [facility] | | | PRODUCT [...] | + + + + + | [facility] | [address] | [place] [address] | | | SERVICES, | [address] [...] Performed At | + + + | [facility] | [facility] DEPT OF | | [facility] [address] | CARDIOLOGY | | [address] [place], [place] [address] Ph: | | | Pt Name: DOUG LAWSON | | | Study Date/Time 07/18/2019 / 2:29:26 PMMRN: [id number] | | | Most recent prior: 04/21/2019Acc #: [id number] | | | No. previous echos: 2DOB: 1965 54 years | | | Heart Rate: 70 bpmHeight: 71.0 in | | | Blood Pressure: 86/65 mm/HgWeight: 180.0 lb | | | Gender: YAQUELINA: 2.02 m | | | Order ID: [id number] Study | | | Location:Rockboard Lather: Dileep Loza [facility]erring Provider: Chriss Leyva | | | [employer] [...] | indexed values Report electronically signed by: [id number] Belén | | | Ravindra RUDD (07/18/2019, [...] | | | |Report electronically signed by: [id number] Belén Waite MD (07/18/2019, 4:07:16 PM) | | | | | | | | | | | | Final | | + + + + + | Procedure Note | + + | Interface, Cardiology Results - 07/18/2019 4:07 PM [facility] [employer] | | [facility] [address] [place] [address] | | [place], [place] [address] Pt Name: DOUG | | CHAN LAWSON Study Date/Time 07/18/2019 / 2:29:26 PMMRN: [id number] | | Most recent prior: 04/21/2019Acc #: [id number] No. previous echos: 2DOB: | | 1965 54 years Heart Rate: 70 bpmHeight: 71.0 in Blood | | Pressure: 86/65 mm/HgWeight: 180.0 lb Gender: MBSA: | | 2.02 m | | Order ID: [id number] Study Location:Rockboard Lather: Dileep Loza | | RDCSReferring Provider: Chriss [...] and indexed values Report electronically signed by: [id number] | | Belén Waite MD (07/18/2019, 4:07:16 [...] | | | |Report electronically signed by: [id number] Belén Waite MD (07/18/2019, 4:07:16 PM) | | | | | | | | Final | + + + + + + + | Performing | Address | City/State/Zipcode | Phone Number | | Organization | | | | + + + + + | [facility] | [address] | [place], [place] | | | CARDIOLOGY | [address] | [address] | | + + + + + [...] [facility] | [address] | [place], [place] | | | [facility] | [address] | [address] | | | TESTS | | | [...] ZULEIKA | [address] | [place], [place] | | | MARIA INES [facility] | [address] | [address] | | | TESTS | | | [...] [facility] | [address] | [place] [address] | | | SERVICES, ARTIS | PARK [...] | + + + + + | [facility] | [address] | [place] [address] | | | SERVICES, CORE | MOISES [...] MARQUAM | [address] | [place], [place] | | | [facility]ARE | [address] | [address] | | | TESTS | | | [...] JJAM | [address] | [place], [place] | | | MARIA INES POINT OF CARE | [address] | [address] | | | TESTS | | | [...] TO | [address] | [place], [place] | | | HALLEY SPANN OF RAMILA | [facility] | [address] | | | TESTS | | | [...] | + + + + + | [facility] | [address] | [place] [address] | | | SERVICES, CORE | MOISES [...] [facility] | [address] | [place] [address] | | | SERVICES, ARTIS | MOISES [...] | | AIRPORT - | | | [facility] | + + + + + + + + | Performing | Address | City/State/Zipcode | Phone Number | | Organization | | | | + + + + + | [facility] - | [address] | [place] [address] | | | [facility] | | | | + + [...] | + + + + + | [facility] | [address] | [place] [address] | | | SERVICES, CORE | [address] | | | + + + + + GRAM SMEAR ONLY, STAT (07/18/2019 9:43 AM PDT) + + + [...] | + + + + + | [facility] | [address] | [place] [address] | | | SERVICES, CORE | MOISES [...] [facility] | [address] | [place] [address] | | | SERVICES, CORE | PARK [...] [facility] | [address] | [place] [address] | | | SERVICES, CORE | PARK [...] | + + + + + | [facility] | [address] | [place] [address] | | | SERVICES, CORE | MOISES [...] | + + + + + | [facility] | [address] [facility] | [place] [address] | | | SERVICES, CORE | MOISES [...] (H) | 0.6 - 1.2 ng/dL | [facility] | | | | | | LABORATORY [...] + + + + + | [facility] | [address] | [place] [address] | | | SERVICES, CORE | MOISES [...] [facility] | [address] | [place] [address] | | | SERVICES, CORE | MOISES [...] equation recommended by the National | [facility] | | Kidney Disease Education Program. Estimated GFR Interpretive | LABORATORY | | Information: <60 mL/min/1.73 sq m Chronic Kidney | SERVICES, [facility] | | Disease <15 mL/min/1.73 sq m [...] + + + + + | [facility] | [address] | [place] [address] | | | CLAUDIA, ARTIS | MOISES [...] [facility] | [address] | [place] [address] | | | ARTIS TAYLOR | PARK [...] + + + + + | [facility] | [address] | [place] [address] | | | SERVICES, CORE | PARK [...] | 2,564 (H) | <125 pg/mL | [facility] | | | | | | LABORATORY [...] + + | [facility] | [address] [facility] [facility] | [place] [address] | | | SERVICES, CORE | PARK [...] | + + + + + | [facility] | [address] | [place] [address] | | | SERVICES, CORE | PARK [...] [facility] | [address] | [place] [address] | | | CLAUDIA, ARTIS | MOISES [...] (H) | 70 - 99 mg/dL | [facility] - | | | GLUCOSE, | | [...] + + + | SEJAL TO | [address] | [place], [place] | | | [facility] | [address] | [address] | | | TESTS | | | [...] Calvo MD 07/18/2019 11:51 AM Preliminary: Deo Calvo MD Dictation initiated: Deo Calvo MD 07/18/2019 | | | 11:48 AM | | + + + + + | Procedure Note | + + | Service Account, Levo Leagueant Res In Interface - 07/18/2019 11:52 AM [...] Calvo MD 07/18/2019 11:51 AM Preliminary: Deo Calvo MD | | Dictation initiated: Deo Calvo [...] TO | [address] | [place], [place] | | | [facility]ES [facility] [facility] | [address] | [address] | | | TESTS | | | | + + + + + X-RAY PORTABLE CHEST 1 VIEW (07/18/2019 8:17 AM PDT) + + | Specimen | + + | | + + + + + | Narrative | Performed At | + + + | EXAM: DE CHEST 1 VIEW HISTORY: Shock, not elsewhere [...] Account, Radiant Res In Interface - 07/18/2019 11:49 AM PDT EXAM: DE CHEST 1 | | VIEW HISTORY: Shock, [...] Deo Calvo MD Dictation initiated: Deo Calvo | | 07/18/2019 11:46 AM | | | |IMPRESSION: [...] + + + + | QTC-BAMARICRUZTT | 515 | ms | [facility] [...] | [facility] OF | [address] | [place], [place] | | | CARDIOLOGY | [address] | [address] | | + + + + + [...] [facility] | [address] | [place] [address] | | | SERVICES, CORE | PARK [...] + + + + + | [facility] | [address] | [place] [address] | | | SERVICES, | [address] [...] + + + + + | [facility] | [address] | [place] [address] | | | SERVICES, | [address] [...] (H) | 70 - 99 mg/dL | [facility] - | | | GLUCOSE, | | [...] + + + | SEJAL TO | [address] | [place], [place] | | | [facility] | [address] | [address] | | | TESTS | | | [...] + + + + | QTC-BAMARICRUZTT | 525 | ms | [facility] [...] + + | [facility] DEPT OF | [address] | [place], [place] | | | CARDIOLOGY | [address] | [address] | | + + + + + [...] [facility] | [address] | [place], [place] | | | [facility] | [address] | [address] | | | TESTS | | | [...] + + + + | ARASELI | 467 | ms | [facility] [...] DEPT OF | [address] | [place], [place] | | | CARDIOLOGY | [address] | [address] | | + + + + + [...] [facility] | [address] | [place], [place] | | | HALLEY SPANN OF CARE | [address] | [address] | | | TESTS | | | [...] + + + + + | [facility] | [address] | [place] [address] | | | SERVICES, CORE | PARK [...] + + + + + | [facility] | [address] [facility] | [place] [address] | | | SERVICES, CORE | PARK [...] + + + + + | [facility] | [address] | [place] [address] | | | CLAUDIA, CORE | [address] | | | [...] equation recommended by the National | [facility] | | Kidney Disease [...] [facility] | [address] | [place] [address] | | | SERVICES, CORE | [address] | | | + + + + + 12 LEAD ECG (07/18/2019 5:05 AM PDT) + + + + + + | Component | Value | Ref Range | Performed | Pathologist | | | | | At | Signature | + + + + + + | VENTRICULAR | 158 | bpm | [facility] | | [...] + + + + | QTC-BELLA | 579 | ms | [facility] [...] DEPT OF | [address] | [place], [place] | | | CARDIOLOGY | [address] | [address] | | + + + + + [...] [facility] | [address] | [place] | | | [facility] IN[facility] | [address] | [address] | | | TESTS | | | [...] (H) | 70 - 99 mg/dL | [facility] | | | GLUCOSE, | | [...] [facility] | [address] | [place] | | | HALLEY SPANN OF [place] | [facility] | [address] | | | TESTS | | | [...] TO | [address] | [place], [place] | | | MARIA INES POINT [facility] CARE | [address] | [address] | | | TESTS | | | [...] [facility] | [address] | [place] | | | HILL, POINT OF CARE | [address] | [address] | | | TESTS | | | [...] (H) | 70 - 99 mg/dL | [facility] | | | GLUCOSE, | | [...] + + + + + | SE[facility] | [address] | [place] | | | [facility] | [address] | [address] | | | TESTS | | | [...] + | [facility] | [address] | [place], [place] | | | [place] | [address] | [address] | | | TESTS | | | [...] + + + + + | [facility] [employer] | [address] | [place] [address] | | | SERVICES, CORE | MOISES [...] [facility] | [address] | [place] [address] | | | SERVICES, CORE | PARK [...] + + + + + | [facility] | [address] | [place] [address] | | | SERVICES, CORE | MOISES [...] (H) | 70 - 99 mg/dL | [facility] - | | | GLUCOSE, | | [...] TO | [address] | [place] | | | MAR[facility] IN[facility] | [address] | [address] | | | TESTS | | | [...] Account, Radiant Res In Interface - 07/18/2019 10:29 AM [...] + + + + | FRANCE-BELLA | 461 | ms | [facility] [...] [facility] | [address] | [place], [place] | | | CARDIOLOGY | [address] | [address] | | + + + + + [...] + + | [facility] | [address] [facility] | [place] [address] | | | SERVICES, CORE | PARK [...] + + + + + | [facility] | [address] | [place] [address] | | | ARTIS TAYLOR | MOISES [...] 12 Hr. fluid restriction: >850 mOsm/kg | ARTIS TAYLOR | + + + + + + + + | Performing | Address | City/State/Zipcode | Phone Number | | Organization | | | | + + + + + | [facility] | [address] [facility] | [place] [address] | | | SERVICES, ARTIS | MOISES [...] [facility] | [address] | [place] [address] | | | ARTIS TAYLOR | PARK [...] [facility] | [address] | [place] [address] | | | SERVICES, CORE | PARK [...] | + + + + + | [facility] | [address] [facility] | [place] [address] | | | SERVICES, CORE | [address]IS[address] [...] + + + + + | [facility] [employer] | [address] | [place] [address] | | | SERVICES, CORE | [address] | | | + + + + + UA, DIPSTICK ONLY (07/17/2019 8:18 PM PDT) + + + + + + | Component | Value | Ref Range | Performed | Pathologist | | | | | At | Signature | + + + + + + | COLOR(UR) | [place] | | [facility] | | | | [...] | [facility] | | | GRAVITY | [place] performed by | | LABORATORY | | [...] [facility] | [address] | [place] [address] | | | SERVICES, CORE | PARK [...] [facility] | [address] | [place] [address] | | | SERVICES, CORE | PARK [...] [facility] | [address] | [place] [address] | | | SERVICES, CORE | MOISES [...] equation recommended by the National | [facility] | | Kidney Disease [...] [facility] | [address] | [place] [address] | | | CLAUDIA, ARTIS | [address] | | | + + + + + CULTURE, BLOOD BACTI & YEAST [facility] (07/17/2019 8:05 PM PDT) + + + [...] | + + + + + | [facility] | [address] | [place] [address] | | | SERVICES, CORE | MOISES [...] [facility] | [address] | [place] [address] | | | SERVICES, CORE | PARK [...] [facility] | [address] | [place] [address] | | | SERVICES, CORE | [address] | | | + + + + + CULTURE, BLOOD BACTI & YEAST [facility] (07/17/2019 8:01 PM PDT) + + + [...] | + + + + + | [facility] | [address] | [place] [address] | | | SERVICES, CORE | MOISES [...] + + | [facility] | [address] [facility] | [place] [address] | | | SERVICES, CORE | PARK [...] [facility] | [address] | [place] [address] | | | SERVICES, CORE | PARK [...] | + + + + + | [facility] | [address] | [place] [address] | | | SERVICES, CORE | MOISES [...] | [facility] | | considered for monitoring buttermaker glycemic control in patients with: | LABORATORY [...] + + | [facility] | [address] [facility] | [place] [address] | | | SERVICES, SPECIAL | PARK [...] | + + + + + | [facility] | [address] | [place] [address] | | | SERVICES, CORE | PARK [...] | + + + + + | [facility] | [address] | [place] [address] | | | ARTIS TAYLOR | MOISES [...] (H) | 70 - 99 mg/dL | [facility] - | | | GLUCOSE, | | [...] TO | [address] | [place], [place] | | | MAR[facility] INES PO[facility]ARE | [address] | [address] | | | TESTS | | | | + + + + + PEDIATRIC PERFUSION (07/17/2019 12:00 AM PDT) + + + | Narrative | Performed At | + + + | | | + + + documented in this encounter Visit Diagnoses Not on filedocumented in this encounter Administered Medications + +--------+ [...] +--------+ +--------+------+------+ +-------+ +--------+---+---+ | Given | 10/31/20 | 500 mg | | | | [...] | | | + +---+ + +-------+ +--------+---+--------+ | darbepoetin darius (ARANESP) [...] | | | | + +-------+ +--------+---+--------+ + +---+ | | | + +---+ [...] | + +---+ + +-------+ +--------+---+---+ | fluconazole (DIFLUCAN) tablet | Given | 08/24/20 | 400 mg | | | | 400 mg 400 mg, oral, EVERY SAT | | 19 8:27 | | | | | (Once per day on Sat), First dose | | AM PST | | | | | on 08/17/19 at 0900, Until | | | | | | | Discontinued | | | | | | + +-------+ +--------+---+---+ +-------+ +--------+---+---+ | Given | 08/17/20 | 400 mg | | | | | 19 8:32 | | | | | | AM PDT | | | | +-------+ +--------+---+---+ + +---+ | | | + +---+ | glucagon (GLUCAGEN) injection 1 | | | mg 1 mg, intramuscular, | | | NEEDED, Starting Thelma 08/20/19 at | | | 1246, Until [...] +---+---+ | | | +---+---+ + +-------+ +--------+---+ + | heparin 5000 unit in NaCl 0.9 % | Given | 08/16/20 | 200 mL | | Abdomina | | 500 mL (10 units/mL) flush | | 19 5:40 | | | l Tissue | | solution INTRAPROCEDURE PRN, | | AM PDT | | | | | Starting 08/16/19 at 0540, | | | | | | | Until 08/16/19 at 0749 | | | | | | + +-------+ +--------+---+ + +---+---+ | | | +---+---+ + [...] | | | | | | | [facility] 08/27/19 at 2200, Until | | | [...] | | | BREAKFAST, First dose on Wed | | AM PST | | [...] | | | | First dose on [facility] 08/20/19 at | | AM PDT [...] DAILY, First | | | dose on Sat08/31/19 at 0900, | | | Until Discontinued [...] | | | | | modification) on [facility] 08/27/19 at | | | | | | | 0900, Last dose on [place] 08/30/19 | | | | | | [...] | NEEDED, Starting 08/18/19 at | | PM PDT | | [...] SEPTRA) 80-400 mg 1 | | 19 1:41 | | | | | tablet [...] | | | | | modification) on Sat08/27/19 at | | | | | | | 1500, Until Discontinued | | | | | | + +-------+ +--------+---+---+ +-------+ +--------+---+---+ | Given | 08/27/20 | 450 mg | | | | | 19 3:46 | | | | | | PM PST | | | | +-------+ +--------+---+---+ +---+---+ | | | +---+---+ documented in this encounter
--- OUTSIDE RECORDS SUMMARY | ~2020-07-29 | XMS | Encounter Summary ---
Demographics + + + | Address | [address] | | | [place] [address] | + + + | Home Phone [...] [place] | | | | | [address] | | + + + + + Care Team Providers + +------+ + | Care Lecturer In Computer Science Name | Role | Phone | + +------+ + | Sharon David MD | PCP | | + +------+ + Encounter Details +--------+ + + + + | Date | Type | Department | Care Team | Description | +--------+ + + + + | 08/12/ | Pharmacy | Outpatient Retail | | | | 2018 | Visit | [facility] | | | | | | [address] | | | | | | [address] [place], [place] | | | | | | [address] | | | | | | [phone] | | | +--------+ + + + [...] Rd | | | | | | [place], [place] | | | | | | [address] | | | | | | [phone] | | | | | | | | +--------+ + + + + | 09/27/ | Telephone-S | Liver Transplant | Vimal Crowe MD | | | 2019 | cheduled | | [address] | | | | | | [facility] [place], | | | | | | [place] [address] | | | | | | [phone] | | | | | | | [...] Rd | | | | | | [place], [place] | | | | | | [address] | | | | | | [phone] | | | | | | | | +--------+ + + + + documented as of this encounter Visit Diagnoses Not on filedocumented in this encounter"
--- OUTSIDE RECORDS SUMMARY | ~2020-07-29 | XMS | Encounter Summary ---
Demographics + + + | Address | [address] | | | [place] [address] | + + + | Home Phone [...] [place] | | | | | [address] | | + + + + + Care Team Providers + +------+ + | Care Film Waxer Name | Role | Phone | + +------+ + | Sharon David MD | PCP | | + +------+ + Encounter Details +--------+ + + + + | Date | Type | Department | Care Team | Description | +--------+ + + + + | 06/13/ | Pharmacy | [facility] | | | | 2020 | Visit | [address] | | | | | | [address] | | | | | | [place] [address] | | | | | | [phone] | | | +--------+ + + + [...] Rd | | | | | | [place], [place] | | | | | | [address] | | | | | | [phone] | | | | | | | | +--------+ + + + + | 09/27/ | Telephone-S | Liver Transplant | Vimal Crowe MD | | | 2019 | cheduled | | [address] | | | | | | [address], | | | | | | [place] [address] | | | | | | [phone] | | | | | | | [...] Rd | | | | | | [place] | | | | | | [address] | | | | | | [phone] | | | | | | | | +--------+ + + + + documented as of this encounter Visit Diagnoses Not on filedocumented in this encounter"
--- OUTSIDE RECORDS SUMMARY | ~2020-07-29 | XMS | Encounter Summary ---
Demographics + + + | Address | [address] | | | [place] [address] | + + + | Home Phone [...] [place] | | | | | [address] | | + + + + + Care Team Providers + +------+ + | Care Automotive Light Mechanic Name | Role | Phone | + +------+ + | Sharon David MD | PCP | | + +------+ + Reason for Visit + + + | Reason | Comments | + + + | Liver Transplant | TTE | | Follow Up | | + + + Encounter Details +--------+ + + + + | Date | Type | Department | Care Team | Description | +--------+ + + + + | 03/07/ | Documentati | Clinical | Vimal Crowe MD | Liver Transplant | | 2020 | on | Transplant Services | [address] | Follow Up (TTE) | | | | [address] | [address] [place], | | | | | [place], | [place] [address] | | | | | [place] [address] | [phone] | | | | | [phone] | | | +--------+ + + + [...] Telephone Encounter - Judie Mota RN - 03/07/2020 1:36 PM PDTFormatting of this not e might be different from the original. MD Judie Chahal RN Hi Judy, Pt had endorsed to renal that he has been having dyspnea at night. They have done CXR which showed no edema, effusion or infiltrate. Agree ?ANA and pt also with cardiac disease so melissa leonardo request TTE locally. If TTE w/o sig change then recommend pulm consult for eval ?ANA versu s other etiology. Thank you Called PCP office, there is a referral to [facility] for cards. Hank MOYER at Dr. David's office information/ request for TTE. She will give this information to Dr. David and they will get this ordered. docu mented in this encounter Plan of Treatment +--------+ + + + + | Date | Type | Specialty | Care Team | Description | +--------+ + + + + | 08/08/ | Telephone-S | Nephrology | Angélica Chao, | | 2019 | [place] | | [address] [facility] | | | | | | [address] | | | | | | [place], [place] | | | | | | [address] | | | | | | [phone] | | | | | | | | +--------+ + + + + | 09/27/ | Telephone-S | Liver Transplant | Vimal Crowe MD | | | 2019 | [place] | | [address] | | | | | | [address] | | | | | | [place] [address] | | | | | | [phone] | | | | | | | [...] Rd | | | | | | [place] | | | | | | [address] | | | | | | [phone] | | | | | | | | +--------+ + + + + documented as of this encounter Visit Diagnoses Not on filedocumented in this encounter"
--- OUTSIDE RECORDS SUMMARY | ~2020-07-29 | XMS | Encounter Summary ---
Demographics + + + | Address | [address] | | | [place] [address] | + + + | Home Phone [...] [place] | | | | | [address] | | + + + + + Care Team Providers + +------+ + | Care Photography Spotter Name | Role | Phone | + +------+ + | Sharon David MD | PCP | | + +------+ + Encounter Details +--------+ + + + + | Date | Type | Department | Care Team | Description | +--------+ + + + + | 12/02/ | Pharmacy | [facility] | | | | 2020 | Visit | [address] | | | | | | [address] | | | | | | [place] [address] | | | | | | [phone] | | | +--------+ + + + [...] Rd | | | | | | [place], [place] | | | | | | [address] | | | | | | [phone] | | | | | | | | +--------+ + + + + | 09/27/ | Telephone-S | Liver Transplant | Vimal Crowe MD | | | 2019 | cheduled | | [address] | | | | | | [address], | | | | | | [place] [address] | | | | | | [phone] | | | | | | | [...] Rd | | | | | | [place] | | | | | | [address] | | | | | | [phone] | | | | | | | | +--------+ + + + + documented as of this encounter Visit Diagnoses Not on filedocumented in this encounter"
--- OUTSIDE RECORDS SUMMARY | ~2020-07-29 | XMS | Encounter Summary ---
Demographics + + + | Address | [address] | | | [place] [address] | + + + | Home Phone [...] [place] | | | | | [address] | | + + + + + Care Team Providers + +------+ + | Care Greaser And Oiler Name | Role | Phone | + [...] | +--------+ + + + + | 02/16/ | Telephone-S | Liver Transplant | Vimal Crowe MD | | | 2020 | cheduled | at [facility] [address] | | | | | [address] | [address] [place], | | | | | Physician's | [place] [address] | | | | | Pavilion, 2nd floor | [phone] | | | | | [place], [place] | | | | | | [address] | | | | | | [phone] | | | +--------+ + + + [...] encounter Progress Notes Vimal Crowe MD - 02/16/2020 11:20 AM PDT Telephone Visit: Post liver transplant Chief complaint: Liver transplant follow-up History of present illness/Interval history: Steffen Duran is a 54 year old male who underwent a liver transplant foralcohol ci rrhosison 08/16/2019. States is doing well. Denies any jaundice, bleeding, ascites or confusion. Intermittent fee t edema worse when on feet for longer periods of time. Also noticed when goes on long drives some numbness in feet. BS running on higher side- has PCP appt upcoming. Urinating normal per pt. Cr still up and K of 5.5. Followed by renal and has appt upcoming this afternoon. On fludocort. Prior hx: Pre-operatively he had a prolong [...] and adjustment in medication. PCP Dr. David [phone] ([facility]) Past medical history Post-Transplant Dx 1. [...] Renal insufficiency 4. Social history Moving to [place]. Denies any current alcohol smoking or recreational [...] PCP. Indications: type 2 diabetes mellitus Insulin [place] (Disposable) (COMFORT EZ PEN NEEDLES) 31 gauge x 5/16" miscellaneous (m [facility]) needle Use as directed for 5 [...] blood tacrolimus 1 mg oral capsule Take 3 capsules by mouth two times daily. Indications: [...] 6.6* Lab Results Component Value Date FK506 5.5 02/08/2020 Assessment: Steffen Duran is a 54 year old male who underwent a liver transplant foralcohol ci rrhosison 08/16/2019. #Status post OLT 08/16/2019 for alcoholic cirrhosis :His post operative course wascompl icated byrenal dysfunctionrequiring dialysis,andvolume overload. He was then admitt ed from 10/12-10/27 for failure to thrive, SVT, and KAR on CKD. Since then states doing wel l. Allograft appears to be functioning well and liver panel normal. FK trough from yesterda y pending. Goal FK 4-6. Cellcept had been held due to leukopenia but now off of valcyte and WBC up so considering restarting. # CKD: Cr yesterday of 2.05 and GFR 34. K of 5.5 and on fludocort. Followed by renal and quintana s appt this afternoon and ?consideration of safety net KT. #Leukopenia: Resolved. 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 Recommend follow-up with local hematology. Summary of recommendations 1. Continue tacrolimus at 4 mg twice a day and fludocortisone. Follow up FK trough from - goal 4-6 and consider restarting MMF. 2. Repeat labs in a week and follow up renal recs, ?KT as noted above 3.Continue to follow up with cardiology, hematology and nephrology as outpatient RTC scheduled for 07/2020 Addendum: Pt had endorsed to renal that he has been having dyspnea at night. They have done CXR which showed no edema, effusion or infiltrate. Agree ?ANA and pt also with cardiac disease so melissa l request TTE locally. If TTE w/o sig change then recommend pulm consult for eval ?ANA versu s other etiology. Thank you for allowing me to participate in the care of Mr. Duran. Please call with any qu estions. Sincerely, Vimal Crowe MD Human Resource Analystmechanical engineering officer [facility] Hepatology Patient agrees to a telephone encounter [...] | | 2019 | [place] | | [address] | | | | | | [address] | | | | | | [place], [place] | | | | | | [address] | | | | | | [phone] | | | | | | | | +--------+ + + + + | 09/27/ | Telephone-S | Liver Transplant | Vimal Crowe MD | | | 2019 | cheduled | | [address] | | | | | | [address], | | | | | | [place] [address] | | | | | | [phone] | | | | | | | | +--------+ + + + + | 10/03/ | Appointment | Cardiology | | | | 2019 | | | | | +--------+ + + + + | 10/03/ | Office | Cardiology | Cyril Samuel | | | 2019 | Visit | | MD Patricia [address] | | | | | | [address] | | | | | | [place], [place] | | | | | | [address] | | | | | | [phone] | | | | | | | | +--------+ + + + + documented as of this encounter Visit Diagnoses + + | Diagnosis | + + | Status post liver transplant (HCC) - Primary Liver replaced by transplant | + + | Immunosuppression (HCC) Unspecified disorder of immune mechanism | + + | Chronic kidney disease, unspecified CKD stage | + + documented in this encounter
--- OUTSIDE RECORDS SUMMARY | ~2020-07-29 | XMS | Encounter Summary ---
Demographics + + + | Address | [address] | | | [place] [address] | + + + | Home Phone [...] [place] | | | | | [address] | | + + + + + Care Team Providers + +------+ + | Care Weighmaster Lead Name | Role | Phone | + +------+ + | Sharon David MD | PCP | | + +------+ + Reason for Visit + +--------+ + | Reason | Onset | Comments | | | Date | | + +--------+ + | Hospital Admission | 07/25/ | | | | 2019 | | + +--------+ + Encounter Details +--------+ + + + + | Date | Type | Department | Care Team | Description | +--------+ + + + + | 07/25/ | MyChart | [facility] | Tyson Bellamy, | RE: Steffen Reaganjosé luis | | 2019 | Encounter | Clinics at S | MD [address] | | | | | [address] [place], | | | | | [facility] | [place] [address] | | | | | Health and Healing, | [phone] | | | | | [facility] 2 | | | | | | [place], [place] | | | | | | [address] | | | | | | [phone] | | | +--------+ + + + [...] Telephone Encounter - Anshul Taylor RN - 07/27/2019 9:30 AM PDT --> PER REVIEW OF [facility]: Patient remains admitted to [facility]. -->My Chart message sent to patient. See for specifics. --> Dr. Bellamy: Routing as an update.Electronically signed by Anshul Taylor RN at 019 9:32 AM PDTdocumented in this encounter Plan of Treatment +--------+ + + + + | Date | Type | Specialty | Care Team | Description | +--------+ + + + + | 08/08/ | Telephone-S | Nephrology | Angélica Chao, | | | 2019 | [place] | | [address] [facility] | | | | | | [address] | | | | | | [place], [place] | | | | | | [address] | | | | | | [phone] | | | | | | | | +--------+ + + + + | 09/27/ | Telephone-S | Liver Transplant | Vimal Crowe MD | | | 2019 | [place] | | [address] | | | | | | [address] | | | | | | [place] [address] | | | | | | [phone] | | | | | | | [...] Rd | | | | | | [place], [place] | | | | | | [address] | | | | | | [phone] | | | | | | | | +--------+ + + + + documented as of this encounter Visit Diagnoses Not on filedocumented in this encounter"
--- OUTSIDE RECORDS SUMMARY | ~2020-07-29 | XMS | Encounter Summary ---
Demographics + + + | Address | [address] | | | [place] [address] | + + + | Home Phone [...] [place] | | | | | [address] | | + + + + + Care Team Providers + +------+ + | Care Real Estate Services Administrator Name | Role | Phone | + +------+ + | Sharon David MD | PCP | | + +------+ + Encounter Details +--------+ + + + + | Date | Type | Department | Care Team | Description | +--------+ + + + + | 06/25/ | Pharmacy | Pharmacy @ [facility] | | | | 2019 | Visit | [address] | | | | | | [place] Mailcode: | | | | | | [facility] | | | | | | and Healing, | | | | | | Building 2 | | | | | | [place], [place] | | | | | | [address] | | | +--------+ + + + [...] Rd | | | | | | [place], [place] | | | | | | [address] | | | | | | [phone] | | | | | | | | +--------+ + + + + | 09/27/ | Telephone-S | Liver Transplant | Vimal Crowe MD | | | 2019 | cheduled | | [address] | | | | | | [facility] [address] [place], | | | | | | [place] [address] | | | | | | [phone] | | | | | | | [...] Rd | | | | | | [place] | | | | | | [address] | | | | | | [phone] | | | | | | | | +--------+ + + + + documented as of this encounter Visit Diagnoses Not on filedocumented in this encounter"
--- OUTSIDE RECORDS SUMMARY | ~2020-07-29 | XMS | Encounter Summary ---
Demographics + + + | Address | [address] | | | [place] [address] | + + + | Home Phone [...] [place] | | | | | [address] | | + + + + + Care Team Providers + +------+ + | Care Scanning Clerk Name | Role | Phone | + +------+ + | Sharon David MD | PCP | | + +------+ + Encounter Details +--------+--------+ + + + | Date | Type | Department | Care Team | Description | +--------+--------+ + + + | 09/03/ | Travel | | | | | [...] Rd | | | | | | [place], [place] | | | | | | [address] | | | | | | [phone] | | | | | | | | +--------+ + + + + | 09/27/ | Telephone-S | Liver Transplant | Vimal Crowe MD | | | 2019 | [place] | | [address] | | | | | | [address], | | | | | | [place] [address] | | | | | | [phone] | | | | | | | [...] [place] | | | | | | [address] | | | | | | [phone] | | | | | | | | +--------+ + + + + documented as of this encounter Visit Diagnoses Not on filedocumented in this encounter"
--- OUTSIDE RECORDS SUMMARY | ~2020-07-29 | XMS | Encounter Summary ---
Demographics + + + | Address | [address] | | | [place] [address] | + + + | Home Phone [...] [place] | | | | | [address] | | + + + + + Care Team Providers + +------+ + | Care Child Abuse Worker Name | Role | Phone | [...] | transplant | MD Lei | [address] [facility] | | | | | status | [address] | [address] | | | | | Procedures | [address] | [address] [place], | | | | | [place] | [place], | [place] | | | | | OFFICE/OUTPT | [place] [address] | [address] | | | | | | Phone: | Phone: | | | | | OSIRISJOSE ANGEL SABA | [phone] | [phone] | | | | | VL IV | Fax: | Fax: | | | | | | [phone] | [phone] | + +--------+ + + + + [...] | | [address] | [address] [place], | | | | | Physician's | [place] [address] | | | | | Pavilion, 2nd floor | [phone] | | | | | [place], [place] | | | | | | [address] | | | | | | [phone] | | | +--------+ + + + [...] as of this encounter Progress Notes Vimal Corwe MD - 07/26/2020 10:20 AM PDT Telephone [...] and adjustment in medication. PCP Dr. David [phone] ([facility]) Past medical history Post-Transplant Dx 1. History [...] Renal insufficiency 4. Social history Moving to [employer]. Denies any current alcohol smoking or recreational [...] daily at bedtime. (Long acting insulin). Insulin [place] (Disposable) (COMFORT EZ PEN NEEDLES) 31 gauge [...] cards locally and has follow up with [facility] upco lucita. Liver allograft appears to be functioning well and liver panel normal. FK trough from yesterday pending. Goal FK 4-6. Cellcept had been held due to leukopenia but now being off ov valcyte has improved so had restarted at 250 mg bid. # Recent EF down to the 35%: Followed by local cards and [facility] cards appt coming up [...] any qu estions. Sincerely, Vimal Crowe MD Executive Housekeeperinspector conveyor line [facility] Hepatology Patient agrees to [...] [address] | | | | | | [place], [place] | | | | | | [address] | | | | | | [phone] | | | | | | | | +--------+ + + + + | 09/27/ | Telephone-S | Liver Transplant | Vimal Crowe MD | | 2019 | cheduled | | [address] | | | | | | [address], | | | | | | [place] [address] | | | | | | [phone] | | | | | | | [...] [place] | | | | | | [address] | | | | | | [phone] | | | | | | | | +--------+ + + + + documented as of this encounter Visit Diagnoses Not on filedocumented in this encounter
--- OUTSIDE RECORDS SUMMARY | ~2020-07-29 | XMS | Encounter Summary ---
Demographics + + + | Address | [address] | | | [place] [address] | + + + | Home Phone [...] [place] | | | | | [address] | | + + + + + Care Team Providers + +------+ + | Care Beater Machine Operator Name | Role | Phone | + +------+ + | Sharon David MD | PCP | | + +------+ + Encounter Details +--------+ + + + + | Date | Type | Department | Care Team | Description | +--------+ + + + + | 02/02/ | Abstract | Clinical | Vimal Crowe MD | | | 2019 | | Transplant Services | [address] | | | | | [address] | [address] [place], | | | | | [place], | [place] [address] | | | | | [place] [address] | [phone] | | | | | [phone] | | | +--------+ + + + [...] Rd | | | | | | [place], [place] | | | | | | [address] | | | | | | [phone] | | | | | | | | +--------+ + + + + | 09/27/ | Telephone-S | Liver Transplant | Vimal Crowe MD | | | 2019 | [place] | | [address] | | | | | | [facility] [address] [place], | | | | | | [place] [address] | | | | | | [phone] | | | | | | | | +--------+ + + + + | 10/03/ | Appointment | Cardiology | | | | 2019 | | | | | +--------+ + + + + | 10/03/ | Office | Cardiology | Cyril Samuel | | | 2019 | Visit | Darren Gomez MD [address] | | | | | | [address] | | | | | | [place], [place] | | | | | | [address] | | | | | | [phone] | | | | | | | | +--------+ + + + + documented as of this encounter Procedures + +--------+ + + + | Procedure Name | Priori | Date/Time | Associated Diagnosis | Comments | | | ty | | | | + +--------+ + + + | LIVER TRANSPLANT | Routin | 02/01/2020 | | Results for this | | POST PANEL (EXT | e | 9:55 AM | | procedure are in the | | RESULTS) | | PDT | | results section. | + +--------+ + + + documented in this encounter Results LIVER TRANSPLANT POST PANEL (EXT RESULTS) (02/01/2020 9:55 AM PDT) + + + + + [...] + + + + | GLUCOSE, | 254 (A) | 65 - 110 mg/dL | [...] + + + + | CREATININE | 1.88 | mg/dL | [facility] | | | [...] + + + | ALK PHOS | 59 | U/L | [facility] | | | [...] + | URIC ACID, | 8.0 | mg/dL | [facility] | | | [...] + + + + | HEMATOCRIT | 35.2 | % | [facility] | | | [...] + + + | PLATELET | 101 | K/cu mm | [facility] | | | COUNT | | | LAB - | | | | | | [place] | | + + + + + + | TACROLIMUS | 5.7 | ng/mL | [facility] | | | [...] [address] | [place] | [phone] | | [place] | | | | + + + + + documented in this encounter Visit Diagnoses Not on filedocumented in this encounter"
--- OUTSIDE RECORDS SUMMARY | ~2020-07-29 | XMS | Encounter Summary ---
Demographics + + + | Address | [address] | | | [place] [address] | + + + | Home Phone [...] [place] | | | | | [address] | | + + + + + Care Team Providers + +------+ + | Care Intermediate Frame Tender Name | Role | Phone | + +------+ + | Sharon David MD | PCP | | + +------+ + Reason for Visit +--------+--------+ + | Reason | Onset | Comments | | | Date | | +--------+--------+ + | Other | 02/17/ | Faxed over CXR order - Call to Patient to provide | | | 2020 | Instructions | +--------+--------+ + Encounter Details +--------+ + + + + | Date | Type | Department | Care Team | Description | +--------+ + + + + | 02/17/ | Telephone | Nephrology & | Angélica Chao, | Other (Faxed over | | 2019 | | [facility] at [facility] | [address] | CXR order - Call to | | | | [address] | [address] | Patient to provide | | | | Loop Physician's | [place], [place] | Instructions) | | | | Shyann, [address] [place] [address] | [address] | | | | | [place], [place] | [phone] | | | | | [address] | | | | | | [phone] | | | +--------+ + + + [...] Telephone Encounter - Kena Domínguez MA - 02/18/2020 1:40 PM [facility] [place] [place] . Spoke with the imaging department. Confirmed patient is o n file with them and they are the only hospital in [place], [place]. For Chest X-ray patient c an walk-in no appointment needed. Confirmed correct fax # [phone]. Faxed CXR order to [phone]. Called and spoke with patient [phone] Informed patient that Chest X-Ray order has been sent to [facility] and should be able to walk in. No appointment is needed. Nannette nt understands and states that he will go in and get in done. Kena Domínguez MA documente d in this encounter Plan of Treatment [...] Rd | | | | | | [place], [place] | | | | | | [address] | | | | | | [phone] | | | | | | | | +--------+ + + + + | 09/27/ | Telephone-S | Liver Transplant | Vimal Crowe MD | | | 2019 | cheduled | | [address] | | | | | | [address], | | | | | | [place] [address] | | | | | | [phone] | | | | | | | [...] Rd | | | | | | [place], [place] | | | | | | [address] | | | | | | [phone] | | | | | | | | +--------+ + + + + documented as of this encounter Visit Diagnoses Not on filedocumented in this encounter"
--- OUTSIDE RECORDS SUMMARY | ~2020-07-29 | XMS | Encounter Summary ---
Demographics + + + | Address | [address] | | | [place] [address] | + + + | Home Phone [...] [place] | | | | | [address] | | + + + + + Care Team Providers + +------+ + | Care Field Support Representative Name | Role | Phone | + +------+ + | Sharon David MD | PCP | | + +------+ + Encounter Details +--------+ + + + + | Date | Type | Department | Care Team | Description | +--------+ + + + + | 03/09/ | MyChart | Nephrology & | Alicia Canchola, | READ First-- Re: | | 2019 | Encounter | [facility] | DO [address] | [address] | | | | [address] | [address] | | | | | Loop Physician's | [place], [place] | | | | | [address] | [address] | | | | | [place], [place] | [phone] | | | | | [address] | | | | | | [phone] | | | +--------+ + + + [...] Rd | | | | | | [place], [place] | | | | | | [address] | | | | | | [phone] | | | | | | | | +--------+ + + + + | 09/27/ | Telephone-S | Liver Transplant | Vimal Crowe MD | | | 2019 | [place] | | [address] | | | | | | [address], | | | | | | [place] [address] | | | | | | [phone] | | | | | | | [...] Rd | | | | | | [place], [place] | | | | | | [address] | | | | | | [phone] | | | | | | | | +--------+ + + + + documented as of this encounter Visit Diagnoses Not on filedocumented in this encounter"
--- OUTSIDE RECORDS SUMMARY | ~2020-07-29 | XMS | Encounter Summary ---
Demographics + + + | Address | [address] | | | [place] [address] | + + + | Home Phone [...] [place] | | | | | [address] | | + + + + + Care Team Providers + +------+ + | Care Rn Internship Name | Role | Phone | + +------+ + | Sharon David MD | PCP | | + +------+ + Encounter Details +--------+ + + + + | Date | Type | Department | Care Team | Description | +--------+ + + + + | 08/24/ | Pharmacy | Outpatient Retail | | | | 2019 | Visit | Clinic Pharmacy | | | | | | [address] | | | | | | Loop [place], [place] | | | | | | [address] | | | | | | [phone] | | | +--------+ + + + [...] Rd | | | | | | [place], [place] | | | | | | [address] | | | | | | [phone] | | | | | | | | +--------+ + + + + | 09/27/ | Telephone-S | Liver Transplant | Vimal Crowe MD | | | 2019 | cheduled | | [address] | | | | | | [facility] [place], | | | | | | [place] [address] | | | | | | [phone] | | | | | | | [...] Rd | | | | | | [place], [place] | | | | | | [address] | | | | | | [phone] | | | | | | | | +--------+ + + + + documented as of this encounter Visit Diagnoses Not on filedocumented in this encounter"
--- OUTSIDE RECORDS SUMMARY | ~2020-07-29 | XMS | Encounter Summary ---
Demographics + + + | Address | [address] | | | [place] [address] | + + + | Home Phone [...] [place] | | | | | [address] | | + + + + + Care Team Providers + +------+ + | Care Devil Dog Name | Role | Phone | + +------+ + | Sharon David MD | PCP | | + +------+ + Encounter Details +--------+ + + + + | Date | Type | Department | Care Team | Description | +--------+ + + + + | 11/05/ | Telephone | [facility] | Tyson Bellamy, | | | 2019 | | Clinics at S | MD [address] | | | | | [address] | [address] [place], | | | | | [address] [facility] | [place] [address] | | | | | Health and Healing, | [phone] | | | | | Building [address] | | | | | | [place], [place] | | | | | | [address] | | | | | | [phone] | | | +--------+ + + + [...] this encounter Miscellaneous Notes Telephone Encounter - Tyson Bellamy MD - 11/05/2019 4:25 PM PSTRed-Onc, Mr. Roger ho ds a local referral to hematology near [place] for phlebotomy once he returns there in next few weeks. Please help me ensure he has an appointment arranged and let me know if I can help with anything. P M PSTdocumented in this encounter Plan of Treatment +--------+ + + + + | Date | Type | Specialty | Care Team | Description | +--------+ + + + + | 08/08/ | Telephone-S | Nephrology | Angélica Chao, | | | 2019 | [place] | | [address] | | | | | | [address] | | | | | | [place], [place] | | | | | | [address] | | | | | | [phone] | | | | | | | | +--------+ + + + + | 09/27/ | Telephone-S | Liver Transplant | Vimal Crowe MD | | | 2019 | [place] | | [address] | | | | | | [address], | | | | | | [place] [address] | | | | | | [phone] | | | | | | | | +--------+ + + + + | 10/03/ | Appointment | Cardiology | | | | 2019 | | | | | +--------+ + + + + | 10/03/ | Office | Cardiology | Cyril Samuel | | | 2020 | Visit | | MD Patricia [address] [facility] | | | | | | [address] | | | | | | [place] | | | | | | [address] | | | | | | [phone] | | | | | | | | +--------+ + + + + documented as of this encounter Visit Diagnoses Not on filedocumented in this encounter"
--- OUTSIDE RECORDS SUMMARY | ~2020-07-29 | XMS | Encounter Summary ---
Demographics + + + | Address | [address] | | | [place] [address] | + + + | Home Phone [...] [place] | | | | | [address] | | + + + + + Care Team Providers + +------+ + | Care Windows Deployment Technician Name | Role | Phone | + +------+ + | Ignacio Caldwell MD | PCP | | + +------+ + Encounter Details +--------+ + + + + | Date | Type | Department | Care Team | Description | +--------+ + + + + | 03/19/ | Results | Registration [id number] | | | | 1998 | Only | [address] | | | | | | Lit Mailcode: [id number] | | | | | | [place] | | | | | | [address] | | | | | | [phone] | | | +--------+ + + + [...] Rd | | | | | | [place], [place] | | | | | | [address] | | | | | | [phone] | | | | | | | | +--------+ + + + + | 09/27/ | Telephone-S | Liver Transplant | Vimal Crowe MD | | | 2019 | ches[facility]neeled | | [address] | | | | | | [address], | | | | | | [place] [address] | | | | | | [phone] | | | | | | | | +--------+ + + + + | 10/03/ | Appointment | Cardiology | | | | 2019 | | | | | +--------+ + + + + | 10/03/ | Office | Cardiology | Cyril Samuel | | | 2020 | Visit | | MD Patricia [address] [facility] | | | | | | [place] | | | | | | [place], [place] | | | | | | [address] | | | | | | [phone] | | | | | | | | +--------+ + + + + documented as of this encounter Procedures + +--------+ + + + | Procedure Name | Priori | Date/Time | Associated Diagnosis | Comments | | | ty | | | | + +--------+ + + + | CBC TESTS 2 | Routin | 03/28/1999 | | Results for this | | | e | 7:05 AM | | procedure are in the | | | | PDT | | results section. | + +--------+ + + + | CBC TESTS 2 | Routin | 03/28/1999 | | Results for this | | | e | 7:00 AM | | procedure are in the | | | | PDT | | results section. | + +--------+ + + + | BLOOD GASES, | Routin | 03/20/1999 | | Results for this | | ARTERIAL - LAB | e | 3:35 PM | | procedure are in the | | | | PDT | | results section. | + +--------+ + + + | BLOOD GASES, | Routin | 03/20/1999 | | Results for this | | ARTERIAL - LAB | e | 1:55 PM | | procedure are in the | | | | PDT | | results section. | + +--------+ + + + | CBC TESTS 2 | Routin | 03/20/1999 | | Results for this | | | e | 11:58 AM | | procedure are in the | | | | PDT | | results section. | + +--------+ + + + | CHEMISTRY TESTS 4 | Routin | 03/20/1999 | | Results for this | | | e | 6:53 AM | | procedure are in the | | | | PDT | | results section. | + +--------+ + + + | CBC TESTS 2 | Routin | 03/20/1999 | | Results for this | | | e | 6:53 AM | | procedure are in the | | | | PDT | | results section. | + +--------+ + + + | CBC TESTS 2 | Routin | 03/19/1999 | | Results for this | | | e | 4:00 PM | | procedure are in the | | | | PDT | | results section. | + +--------+ + + + documented in this encounter Results CBC TESTS 2 (03/28/1999 7:05 AM PDT) + + + + + + | Component | Value | Ref Range | Performed | Pathologist | | | | | At | Signature | + + + + + + | HEMATOCRIT | 29.5 (L) | % | | | + + + + + + + + | Specimen | + + | | + + + + + + + | Performing | Address | City/State/Zipcode | Phone Number | | Organization | | | | + + + + + | [facility] | [address] | [place] [address] | | | PATHOLOGY | [address] | | | + + + + + CBC TESTS 2 (03/28/1999 7:00 AM PDT) + + + + + + | Component | Value | Ref Range | Performed | Pathologist | | | | | At | Signature | + + + + + + | HEMATOCRIT | COLLECTD | % | | | + + + + + + + + | Specimen | + + | | + + + + + + + | Performing | Address | City/State/Zipcode | Phone Number | | Organization | | | | + + + + + | [facility] | [address] | [place] [address] | | | PATHOLOGY | [address] | | | + + + + + BLOOD GASES, ARTERIAL - LAB (03/20/1999 3:35 PM PDT) + + + + + + | Component | Value | Ref Range | Performed | Pathologist | | | | | At | Signature | + + + + + + | PAT TEMP | 37.1 | [facility] | | | | ARTERIAL | | | | | + + + + + + | FIO2 | 4. (L) | [facility] | | | | ARTERIAL | | | | | + + + + + + | PH ARTERIAL | 7.41 | [facility] | | | + + + + + + | PCO2 | 49. (H) | MM HG | | | | ARTERIAL | | | | | + + + + + + | PO2 | 74. (L) | MM HG | | | | ARTERIAL | | | | | + + + + + + | BASE EXCESS | 6.4 | MM HG | | | | ARTERIAL | | | | | + + + + + + | HCO3 | 31. (H) | mmol/l | | | | ARTERIAL | | | | | + + + + + + | TOTAL CO2 | 33. (H) | mmol/l | | | | ARTERIAL | | | | | + + + + + + | CALC %O2 | 94.5 | % O2 Sat | | | | SAT ARTER | | | | | + + + + + + + + | Specimen | + + | | + + + + + + + | Performing | Address | City/State/Zipcode | Phone Number | | Organization | | | | + + + + + | [facility] | [address] | [place] [address] | | | PATHOLOGY | [address] | | | + + + + + BLOOD GASES, ARTERIAL - LAB (03/20/1999 1:55 PM PDT) + + + + + + | Component | Value | Ref Range | Performed | Pathologist | | | | | At | Signature | + + + + + + | PAT TEMP | 37.1 | [facility] | | | | ARTERIAL | | | | | + + + + + + | FIO2 | RA | [facility] | | | | ARTERIAL | | | | | + + + + + + | PH ARTERIAL | 7.42 | [facility] | | | + + + + + + | PCO2 | 48. (H) | MM HG | | | | ARTERIAL | | | | | + + + + + + | PO2 | 47. (*) | MM HG | | | | ARTERIAL | | | | | + + + + + + | PO2 | CHECKED AND PHONED | MM HG | | | | ARTERIAL | | | | | + + + + + + | BASE EXCESS | 6.3 | MM HG | | | | ARTERIAL | | | | | + + + + + + | HCO3 | 31. (H) | mmol/l | | | | ARTERIAL | | | | | + + + + + + | TOTAL CO2 | 33. (H) | mmol/l | | | | ARTERIAL | | | | | + + + + + + | CALC %O2 | 82.5 | % O2 Sat | | | | SAT ARTER | | | | | + + + + + + + + | Specimen | + + | | + + + + + + + | Performing | Address | City/State/Zipcode | Phone Number | | Organization | | | | + + + + + | [facility] | [address] | [place] [address] | | | PATHOLOGY | [address] | | | + + + + + CBC TESTS 2 (03/20/1999 11:58 AM PDT) + + + + + + | Component | Value | Ref Range | Performed | Pathologist | | | | | At | Signature | + + + + + + | WHITE CELL | 13.1 (H) | K/CU MM | | | | COUNT | | | | | + + + + + + | RED CELL | 3.51 (L) | M/CU MM | | | | COUNT | | | | | + + + + + + | HEMOGLOBIN | 10.6 (L) | GM/DL | | | + + + + + + | HEMATOCRIT | 30.9 (L) | % | | | + + + + + + | MCV | 88.1 | [place] | | | + + + + + + | MCH | 30.3 | PG | | | + + + + + + | MCHC | 34.3 (H) | GM/DL | | | + + + + + + | RDW | 12.5 | % | | | + + + + + + | PLATELET | 154. | K/CU MM | | | | COUNT | | | | | + + + + + + | MPV | 8.7 | [place] | | | + + + + + + + + | Specimen | + + | | + + + + + + + | Performing | Address | City/State/Zipcode | Phone Number | | Organization | | | | + + + + + | [facility] | [address] | [place] [address] | | | PATHOLOGY | [address] | | | + + + + + CBC TESTS 2 (03/20/1999 6:53 AM PDT) + + + + + + | Component | Value | Ref Range | Performed | Pathologist | | | | | At | Signature | + + + + + + | HEMATOCRIT | 31.6 (L) | % | | | + + + + + + + + | Specimen | + + | | + + + + + + + | Performing | Address | City/State/Zipcode | Phone Number | | Organization | | | | + + + + + | [facility] | [address] | [place] [address] | | | PATHOLOGY | [address] | | | + + + + + CHEMISTRY TESTS 4 (03/20/1999 6:53 AM PDT) + + + + + + | Component | Value | Ref Range | Performed | Pathologist | | | | | At | Signature | + + + + + + | SODIUM, | 134. (L) | mmol/l | | | | PLASMA | | | | | | (LAB) | | | | | + + + + + + | POTASSIUM, | 4.3 | mmol/l | | | | PLASMA | | | | | | (LAB) | | | | | + + + + + + | CHLORIDE, | 99. | mmol/l | | | | PLASMA | | | | | | (LAB) | | | | | + + + + + + | TOTAL CO2, | 33. (H) | mmol/l | | | | PLASMA | | | | | | (LAB) | | | | | + + + + + + + + | Specimen | + + | | + + + + + + + | Performing | Address | City/State/Zipcode | Phone Number | | Organization | | | | + + + + + | [facility] | [address] | [place], [place] [address] | | | PATHOLOGY | [address] | | | + + + + + CBC TESTS 2 (03/19/1999 4:00 PM PDT) + + + + + + | Component | Value | Ref Range | Performed | Pathologist | | | | | At | Signature | + + + + + + | WHITE CELL | 13.1 (H) | K/CU MM | | | | COUNT | | | | | + + + + + + | RED CELL | 3.87 (L) | M/CU MM | | | | COUNT | | | | | + + + + + + | HEMOGLOBIN | 11.8 (L) | GM/DL | | | + + + + + + | HEMATOCRIT | 34.1 (L) | % | | | + + + + + + | MCV | 88.1 | [place] | | | + + + + + + | MCH | 30.4 | PG | | | + + + + + + | MCHC | 34.5 (H) | GM/DL | | | + + + + + + | RDW | 12.5 | % | | | + + + + + + | PLATELET | 174. | K/CU MM | | | | COUNT | | | | | + + + + + + | MPV | 8.5 | [place] | | | + + + + + + + + | Specimen | + + | | + + + + + + + | Performing | Address | City/State/Zipcode | Phone Number | | Organization | | | | + + + + + | [facility] | [address] | [place] [address] | | | PATHOLOGY | [address] | | | + + + + + documented in this encounter Visit Diagnoses Not on filedocumented in this encounter"
--- OUTSIDE RECORDS SUMMARY | ~2020-07-29 | XMS | Encounter Summary ---
Demographics + + + | Address | [address] | | | [place] [address] | + + + | Home Phone [...] [place] | | | | | [address] | | + + + + + Care Team Providers + +------+ + | Care Machine Set Up Name | Role | Phone | + [...] | | CONSULT TO | Rd | [place], [place] | | | | | HEMATOLOGY / | [place], [place] | [address] | | | | | ONCOLOGY | [address] | Phone: | | | | | | Phone: | [phone] | | | | | | [phone] | Fax: | | | | | | Fax: | [phone] | | | | | | [phone] | | +--------+---------+ + + + + Encounter Details +--------+---------+ + + + | Date | Type | Department | Care Team | Description | +--------+---------+ + + + | 11/02/ | Office | [facility] | Tyson Bellamy, | Iron overload | | 2020 | Visit | Clinics at S | MD [address] | (Primary Dx) | | | | [place] [address] [place], | | | | | [facility] | [place] [address] | | | | | [facility], | [phone] | | | | | [address] | | | | | | [place], [place] | | | | | | [address] | | | | | | [phone] | | | +--------+---------+ + + + [...] + + + | Blood Pressure | 142/91 | 11/02/2019 4:09 PM | | | | | PST | | + + + + + | Pulse | 122 | 11/02/2019 4:09 PM | | | | | PST | | + + + + + | Temperature | 36.8 C (98.2 F) | 11/02/2019 4:09 PM | | | | | PST | | + + + + + | Respiratory Rate | 14 | 11/02/2019 4:09 PM | | | | | PST | | + + + + + | Oxygen Saturation | 100% | 11/02/2019 4:09 PM | | | | | PST | | + + + + + | Inhaled Oxygen | - | - | | | Concentration | | | | + + + + + | Weight | 88.9 kg (196 lb) | 11/02/2019 4:09 PM | | | | | PST | | + + + + + | Height | 178 cm (5' 10.08") | 11/02/2019 4:09 PM | | | | | PST | | + + + + + | Body Mass Index | 28.06 | 11/02/2019 4:09 PM | | | | | PST [...] encounter Progress Notes Tyson Bellamy MD - 11/02/2019 4:10 PM PSTFormatting of this note might be different f rom the original. Hematology Clinic Followup. 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 This is compounded by significant transfusion associated iron overload as evidenced by his persistent ferritin of 3-4 thousand, saturation of 105% and evidence of organ iron deposition on MRI abdomen. He underwent a bone marrow biopsy 07/2018 which showe d a normocellular marrow with trilineage hematopoiesis and erythroid hyperplasia and increas ed storage iron. FAISAL 2 [id number] with reflex to MPN testing also previously preformed, negative. Subjective/Interval events: In the interim Donell has undergone Liver transplant 08/15/2019 Today, Donell presents doing well overall. He has been renting a house nearby while recovering from recent transplant. He most recently saw hepatology last week. He would like to receive treatment at [facility] in [place], [place]. would be ideal for treatment. Den ies shortness of breath, bruising. He notes some abnormal swelling in his feet after his tra nsplant. His Hgb has increased and is stably around 10 g/dl. HOME MEDICATIONS: Current Outpatient Medications on File Prior to Visit Medication Sig Dispense Refill Alcohol Swabs (ALCOHOL PREP SWABS) topical pads, medicated Apply 1 each to affected are a five times daily. Use as directed. 200 each 1 amiodarone 200 mg oral tablet Take 1 tablet by mouth once daily. Indications: Preventio n of Ventricular Fibrillation 30 tablet 1 aspirin EC 325 mg oral tablet,delayed release (DR/EC) Take 1 tablet by mouth once daily . 100 tablet 5 atovaquone 750 mg/5 mL oral suspension Take 10 mL by mouth once daily. 150 mL 2 BASAGLAR KWIKPEN U-100 INSULIN 100 unit/mL (3 mL) subcutaneous insulin pen Inject 10 Un its under the skin (SUBC) once daily at bedtime. Indications: type 2 diabetes mellitus 15 mL 1 Blood Sugar Diagnostic (FREESTYLE LITE STRIPS) miscellaneous (misc) strip Use [address] rip to check blood sugar two times daily before meals. Indications: type 2 diabetes mellitus 100 each 5 Blood-Glucose Meter (FREESTYLE LITE METER) miscellaneous (misc) kit Use as directed. Us e as directed. 1 each 0 fludrocortisone 0.1 mg oral tablet Take 1 tablet by mouth once daily. 30 tablet 5 glimepiride 1 mg oral tablet Take 1 tablet by mouth once daily with breakfast. Indicati ons: type 2 diabetes mellitus 30 tablet 1 Insulin Ostrander (Disposable) (COMFORT EZ PEN NEEDLES) 31 gauge x 5/16" miscellaneous (m isc) needle Use as directed for 5 insulin injections per day. 150 each 5 lancets (FREESTYLE LANCETS) 28 gauge miscellaneous (misc) misc Test blood sugar four ti mes daily (before each meal and at bedtime). Indications: type 2 diabetes mellitus 150 each 5 magnesium oxide 250 mg elemental oral tablet Take 2 tablets by mouth two times daily. 1 00 tablet 5 metoprolol succinate 25 mg oral tablet extended release 24 hr Take 1 tablet by mouth on ce daily. Indications: high blood pressure 30 tablet 5 mirtazapine 30 mg oral tablet Take 1 tablet by mouth once daily in the evening. Indicat ions: lack of appetite 30 tablet 5 valGANciclovir 450 mg oral tablet Take 1 tablet by mouth once daily. Indications: viral infection prevention 22 tablet 0 No current facility-administered medications on file prior [...] file Gets together: Not on file Attends anglican service: Not on file Active member of club or organization: Not on file Attends meetings of clubs or organizations: Not on file Relationship status: Not on file Other Topics Concern Not on file Social History Narrative Not on file PHYSICAL EXAM: Last 24 hour min/max Temp: 36.8 C (98.2 F) @FLOWSTATR(6:24::1)@ Pulse: 122 @FLOWSTATR(8:24::1)@ Resp: 14 @FLOWSTATR(9:24::1)@ BP: 142/91 @FLOWSTATR(5:24::1)@ SpO2: 100 % @FLOWSTATR(10:24::1)@ Body mass index is 28.06 kg/m. General: The patient is alert, oriented, and does not appear to be in any acute distress. P mirela male HEENT: Mild scleral icterus without conjunctival injection. Pulm: Breathing unlabored GI: distended Extremities: Bilateral edema. Neuro: Cranial nerves grossly in tact bilaterally. Psych: Pleasant. Skin: Jaundice LABS: Lab Results Component Value Date WBC 2.56 (L) 11/02/2019 RBC 3.45 (L) 11/02/2019 HB 9.7 (L) 11/02/2019 HCT 31.7 (L) 11/02/2019 MCV 91.9 11/02/2019 MCHC 30.6 (L) 11/02/2019 RDW 46.3 11/02/2019 PLT 77 (L) 11/02/2019 MPV 11.6 11/02/2019 NRBCPERC 0.0 11/02/2019 NRBCABS 0.00 11/02/2019 NEUTROPERC 57.8 11/02/2019 LYMPHPERC 22.7 11/02/2019 MONOPERC 10.5 (H) 11/02/2019 EOSPERC 6.6 (H) 11/02/2019 BASOPERC 1.6 11/02/2019 IMGRANPERC 0.8 11/02/2019 NEUTROPHILCO 1.48 (L) 11/02/2019 LYMPHSABS 0.58 (L) 11/02/2019 MONOCYTECO 0.27 11/02/2019 EOSCO 0.17 11/02/2019 BASOPHILCO 0.04 11/02/2019 IMGRANABS 0.02 11/02/2019 Lab Results Component Value Date FERRITIN 3,007 (H) 08/15/2019 Smear review: IMAGING: Cardiac MRI 1. Normal [...] secon vee to spur cell anemia. He developed significant transfusions associated iron overload wi th detectable liver and myocardial iron overload. Now with s/p liver transplant on 9. Given his hemoglobin is 9.7 on 11/02/2018, therapeutic phlebotomy would be feasible for jaki moreno of his iron overload. He also lives quite far from [facility] in [place], making the [facility] routine follow[facility] difficult. Will arrange for treatment with local hematology in [place], [place]. He was agreeable to that plan. PLAN: - Refer to local Hematology group for therapeutic Phlebotomy in [place], [place] with hemo globin and ferritin monitoring. - Most recent ferritin is 3007 in July. I am Mike Corcoran functioning as a scribe for Tyson Bellamy MD at 4:15 PM on 0 I have reviewed and verified the above scribed note of my visit with this patient as record ed by Mike Bellamy MD Motor [employer]arn[employer] machine operator Hematology-Medical Oncology [facility] [place] [address] documented in this encounter Plan of Treatment [...] Rd | | | | | | [place], [place] | | | | | | [address] | | | | | | [phone] | | | | | | | | +--------+ + + + + | 09/27/ | Telephone-S | Liver Transplant | Vimal Crowe MD | | | 2019 | cheduled | | [address] | | | | | | [address], | | | | | | [place] [address] | | | | | | [phone] | | | | | | | [...] Rd | | | | | | [place], [place] | | | | | | [address] | | | | | | [phone] | | | | | | | | +--------+ + + + + documented as of this encounter Visit Diagnoses + + | Diagnosis | + + | Iron overload - Primary Other disorders of iron metabolism | + + documented in this encounter
--- OUTSIDE RECORDS SUMMARY | ~2020-07-29 | XMS | Encounter Summary ---
Demographics + + + | Address | [address] | | | [place] [address] | + + + | Home Phone [...] [place] | | | | | [address] | | + + + + + Care Team Providers + +------+ + | Care Tax Accountant Name | Role | Phone | + [...] + + + + | 08/15/ | Anesthesia | 6A Intra Op 3181 | Art Felder, | | | 2019 | Event | [address] | [address] | | | | | [facility] | [address] | | | | | Hospital Admitting | [place], [place] | | | | | Desk Located on the | [address] | | | | | 9th floor | [phone] | | | | | [place], [place] | | | | | | [address] | Juan Carlos Reyes | | | | | | MD Shaun [address] | | | | | | [address] | | | | | | [place], [place] | | | | | | [address] | | | | | | [phone] | | | | | | | | +--------+ + + + + Anesthesia Record + + + + + | Procedure Name | Responsible | Anesthesia Start | Anesthesia Stop Time | | | Anesthesiologist | Time | | + + + + + | LIVER TRANSPLANT | Art Felder MD | 08/15/192306 | 08/16/19 0807 | | RECIPIENT (IN ROOM | | | | | TIME 2330) (N/A | | | | | Abdomen) | | | | + + + + + +----+---+ + + | Da | T | Event | Comment | | te | i | | | | | m | | | | | e | | | +----+---+ + + | 10 | 2 | | | | /2 | 2 | | | | 6/ | 5 | | | | 20 | 1 | | | | 19 | | | | +----+---+ + + | | 2 | Pt. Check | Prior to anesthesia start, pt. Identified, examined, chart | | | 2 | | reviewed, PARQ held, anesthetic plan made or approved by | | | 5 | | attending anesthesiologist. NPO status confirmed as appropriate | | | 1 | | for procedure Preoperative evaluation: unchanged | +----+---+ + + | | 2 | Vitals | Monitors applied Vital signs checked Patient ready for anesthesia | | | 2 | Checked | | | | 5 | | | | | 2 | | | +----+---+ + + | | 2 | Eq Check | Anesthesia machine checked Equipment verified | | | 3 | | | | | 0 | | | | | 1 | | | +----+---+ + + | | 2 | Preprocedur | Pt ID confirmed, informed consent obtained, insertion site | | | 3 | e Checklist | marked, equipment available | | | 0 | | | | | 1 | | | +----+---+ + + | | 2 | An Start | | | | 3 | | | | | 0 | | | | | 7 | | | +----+---+ + + | | 2 | An Start | | | | 3 | Data | | | | 0 | | | | | 8 | | | +----+---+ + + | | 2 | Intraop and | - Patient/Allergies/Procedure - Relevant PMH - Relevant data | | | 3 | Med | (labs/imaging) - Anesthetic (airway, infusions, drug redoses) - | | | 1 | Handoff | Lines/Drains - I/O - Current Phase and significant events - | | | 0 | | Emergence/dispo plans, post-op concerns Fentanyl 1000 mcg Charla | | | | | to Juan Carlos | +----+---+ + + | | 2 | ETT | | | | 3 | | | | | 1 | | | | | 3 | | | +----+---+ + + | | 2 | Art Line | | | | 3 | | | | | 2 | | | | | 0 | | | +----+---+ + + | 10 | 0 | Central | | | /2 | 0 | venous line | | | 7/ | 1 | | | | 20 | 0 | | | | 19 | | | | +----+---+ + + | | 0 | Ready | | | | 0 | | | | | 1 | | | | | 5 | | | +----+---+ + + | | 0 | Abx | | | | 0 | Administere | | | | 4 | d | | | | 5 | | | +----+---+ + + | | 0 | Incision | | | | 0 | | | | | 5 | | | | | 1 | | | +----+---+ + + | | 0 | Quick Note | Reperfusion | | | 4 | | | | | 1 | | | | | 7 | | | +----+---+ + + | | 0 | Quick Note | For a few minutes, patient converted from NSR to an irregular | | | 6 | | wide complex rhythm (likely his baseline RBBB +/- AF) The then | | | 0 | | had a episode of sustained VT with HR of 200 (~30 seconds). | | | 0 | | Hemodynamically stable. Self limited. Provided patient with | | | | | 150mg IV amiodarone, 1mg magnesium. Reviewed electrolytes (K and | | | | | Ca++ at goal range). Returned to NSR. | +----+---+ + + | | 0 | Intraop and | Fentanyl [address] Singh | | | 7 | Med | | | | 0 | Handoff | | | | 0 | | | +----+---+ + + | | 0 | Quick Note | Run of vta | | | 7 | | | | | 1 | | | | | 8 | | | +----+---+ + + | | 0 | ICU Handoff | Procedure Anesthetic Brief History Relevant | | | 7 | Call | Meds/Labs/Echo/Imaging Difficult airway? Intraoperative Course: | | | 2 | | Lines/drains EBL Significant Events Meds: Infusions, | | | 4 | | Antibiotics/Redosing, Paralytics (last dose and time), Analgesic | | | | | Plan Central line- will review image and place order in PACU | | | | | Surgeon concerns | +----+---+ + + | | 0 | Surgery end | | | | 7 | | | | | 3 | | | | | 4 | | | +----+---+ + + | | 0 | OR to | Patient transported to ICU with continuous monitoring, intubated | | | 7 | ICU/Handoff | and ventilated, handoff given to ICU team. | | | 5 | | | | | 9 | | | +----+---+ + + | | 0 | OR to | Patient transported to ICU with continuous monitoring, intubated | | | 8 | ICU/Handoff | and ventilated, handoff given to ICU team. | | | 0 | | | | | 7 | | | +----+---+ + + | | 0 | Anesthesia | | | | 8 | End | | | | 0 | | | | | 7 | | | +----+---+ + + +------+ | Meds | +------+ + + + | Name | Total | + + + | fentaNYL | 250 mcg | + + + | lidocaine 2% | 300 mg | + + + | propofol | 100 mg | + + + | rocuronium | 120 mg | + + + | PHENYLEPHrine | 300 mcg | + + + | norepinephrine INF (8mg/250mL) | 4,839.3 mcg | + + + | vasopressin | 5 Units | + + + | PHENYLEPHrine INF (25mg/250mL) | 34,752.98 mcg | + + + | ampicillin injection 1 g | 1 g | + + + | cefOXitin | 8,000 mg | + + + | calcium chloride | 2,000 mg | + + + | sodium bicarbonate | 150 mEq | + + + | magnesium sulfate 2 g | 4 g | + + + | lidocaine 1% | 100 mg | + + + | insulin regular | 49 Units | + + + | insulin regular INF (1unit/mL) | 42.17 Units | + + + | furosemide | 40 mg | + + + | dextrose 50% | 62.5 g | + + + | EPINEPHrine | 30 mcg | + + + | amiodarone | 150 mg | + + + | vasopressin INF (20unit/100mL) | 3.28 Units | + + + | mycophenolate (CELLCEPT) IV 1,000 | 1,500 mg | | mg | | + + + | methylPREDNISolone sod succ | 500 mg | + + + | electrolyte-R (NORMOSOL) | 1,500 mL | + + + + + | Name | + + | O2 FR Avance (Total Liters) | + + | Air FR Avance (l/min) | + + | Insp Iso | + + | Et Iso | + + | Insp N2O % | + + +------+ + | Name | Total | +------+ + | RBC | 2,400 mL | +------+ + | FFP | 841 mL | +------+ + | PLT | 214 mL | +------+ + +--------+ + + + | Type | Details | Placement | Removal | +--------+ + + + | Incisi | Jose RUDD; abdomen | 08/16/19 0200 by | | | on | | | | +--------+ + + + | Otilia | 07/20/19; 5; Jamila DONOHUE ; ; | 07/20/19134 by | 08/20/192324 by Mario Alberto | | eral | Forearm; 20 g; Positive; | Deb Guerrero RN | JAYDE Pereira | | IV | 08/20/19; 5; Drainage, Site | | | | | problems | | | +--------+ + + + | Feedin | 08/01/19; 1809; mo anderson RN; | 08/01/19 1810 by | 08/21/19 1700 by | | g Tube | Small-bore feeding tube; Right | Mo Anderson RN | Alberto Dickens RN | | | Nare; 16; Nare (53 cm); tolerated | | | | | well; 08/21/19; 1700; (per LIP) | | | +--------+ + + + | ETT | 08/15/19; 2313 (created via | 08/15/192312 by | 08/16/19 1400 by | | | procedure documentation); 7.5; | Shaun Rangel | Jody Rios, | | | Oral; Cuffed; 08/16/19; 1400; Per | MD Eric | RN | | | order | | | +--------+ + + + | Urethr | 08/15/19; 2314; Arash Valdez RN; | 08/15/192314 by | 08/18/19912 by | | al | Fazal-greg Santos; 08/18/19912; | Lashonda Valdez RN | Jody Campos RN | | Cathet | Per order | | | | er | | | | +--------+ + + + | Periph | 08/15/19; 2329; US guided 16g PIV | 08/15/192329 by | 08/19/1999 by | | chad | inserted by Dr. Rangel; Right; | Shaun Rangel | Adenike Newsome RN | | IV | Antecubital; 16 g; Yes; Positive; | MD Eric | | | | 08/19/19; 0100; Drainage | | | +--------+ + + + | Periph | 08/15/19; 2332; Dr. Felder; | 08/15/192332 by | 08/16/192199 by | | chad | Left; Forearm; 14 g; Positive; | Shaun Rangel | Nunu Lucero RN | | IV | 08/16/19; 2199; Site problems | MD Eric | | +--------+ + + + | Arteri | 08/16/19; 433 (created via | 08/16/19433 by | 08/17/19756 by | | al | procedure documentation); | Shaun Rangel | Jody Campos RN | | Line | Standard; 08/17/19; 0757; Per | MD Eric | | | | order | | | +--------+ + + + | Sheath | 08/16/19; 436 (created via | 08/16/19436 by | 08/17/191429 by | | /Intro | procedure documentation); | Shaun Rangel | Desire Delaney RN | | ducer | 08/17/19; 1430 | MD Eric | | | Single | | | | | Lumen | | | | +--------+ + + + | Centra | 08/16/19; 0644 (created via | 08/16/19643 by | 08/17/19 143 by | | l Line | procedure documentation); | Shaun Rangel | Desire Delaney RN | | - | 08/17/19; 1430; Per order | MD Eric | | | Triple | | | | | Lumen | | | | +--------+ + + + documented in this encounter Social [...] + + documented as of this encounter [place] Notes Anesthesia Postprocedure Evaluation - Art Felder MD - 08/17/2019 8:30 AM PDTFormatti ng of this note might be different from the original. Steffen Duran [id number] Vitals Value Taken Time BP 138/69 08/17/2019 8:00 AM Temp 36.8 C (98.24 F) 08/17/2019 8:29 AM Pulse 74 08/17/2019 8:29 AM Resp 12 08/17/2019 8:29 AM SpO2 100 % 08/17/2019 8:29 AM Vitals shown include unvalidated device data. EVALUATION VS (BP, HR, RR, SpO2, and Temp) and hydration status are stable ROS including Cards, Resp, Neuro, and GI without evidence of adverse effects No PONV Pain controlled No altered mental status COMPLICATIONS No adverse events Other/Comments: Patient is awake and alert. Oral intake begun. nesthesia Postproced ure Evaluation - Linda Singh MD - 08/16/2019 8:07 AM PDTFormatting of this note migh t be different from the original. Steffen Duran [id number] Vitals Value Taken Time BP 145/64 08/16/2019 7:58 AM Temp 36.5 C (97.7 F) 08/16/2019 7:58 AM Pulse 68 08/16/2019 7:58 AM Resp 17 08/15/2019 10:27 PM SpO2 100 % 08/16/2019 7:58 AM EVALUATION Unable to perform eval due to Critical care requirements VS (BP, HR, RR, SpO2, and Temp) and hydration status are stable Unable to assess ROS including Cards, Resp, Neuro, and GI Unable to assess PONV Unable to assess pain Unable to assess mental status COMPLICATIONS Adverse Events (for all 'Other' selections, see below) -- Cardiovascular: Arrhythmia Other/Comments: Pt brought directly to the TSICU for management of critical care needs, no XR obtained in the OR for missing needles due to concern for persistent arrythemias without hemodynamic instability. nesthesia Procedur e Notes - Shaun Quinones MD - 08/16/2019 6:38 AM PDTAssociated Order(s): CVLCENTRA L VENOUS LINE Catheter type: Triple lumen Double-Stick:double stick technique Indication(s): Assessment of intravascular volume Location Performed: OR Informed Consent: Included in anesthesia consent PROCEDURE Skin Prep: Chloraprep Team pause: Performed per policy Protective Barrier: Cap, Mask, Gown, Full-body drape, Hand scrub and Gloves Vein Milieu Manager Technique: ultrasound guidance Ultrasound image: Printed and placed in patient's chart Insertion side:right Insertion Site: internal jugular Access device: 18G, angiocath Position confirmed by: manometry Catheter size (Fr): 7 Catheter length (cm): 15 SECURE AND FLUSH All ports aspirated for blood Port flush: 0.9% saline Line secured with: suture Sterile field while applying dressing: dressing applied prior of removal of full barrier dr hina guidewire removal confirmed ASSESSMENT Number of attempts: 1 Complications: None NARRATIVE Attending was physically present for the critical portions of the procedure as described in the procedure note Attending/Authorizing Provider: Art Felder MD Performing Provider: Shaun Reyes MD Procedure Comments: Placed as part of dual stick. Easy cannulation and guidewire placement. Guidewire confirmed to be in the IJ lumen. Origin ally placed at hubbed CVC position (~15/16cm but distal port not flushing), pulled back 2-3 more cm from hub. All ports flushed and lencho blood without issue. nesthesia Procedure Notes - Shaun Quinones MD - 08/16/2019 4:36 AM PDTAssociated Order(s): CVLCENTRAL VENOUS LINE Catheter type: Sheath/Introducer single lumen (cordis) - Introducer only Double-Stick:double stick technique Indication(s): Assessment of intravascular volume Location Performed: OR Informed Consent: Included in anesthesia consent Anesthesia Method: General anesthesia PROCEDURE Skin Prep: Chloraprep Team pause: Performed per policy Protective Barrier: Cap, Mask, Gown, Full-body drape, Hand scrub and Gloves Vein Milieu Manager Technique: ultrasound guidance Ultrasound image: Printed and placed in patient's chart Insertion side:right Insertion Site: internal jugular Access device: 18G, angiocath Position confirmed by: manometry and ultrasound Catheter size (Fr): 9 Catheter length (cm): Standard Insertion depth (cm): 10 SECURE AND FLUSH All ports aspirated for blood Port flush: 0.9% saline Line secured with: suture Sterile field while applying dressing: site covered with sterile gauze prior to removing dr ape, followed by application of sterile dressing guidewire removal confirmed ASSESSMENT Number of attempts: 1 Complications: None NARRATIVE Attending was physically present for the critical portions of the procedure as described in the procedure note Attending/Authorizing Provider: Art Felder MD Performing Provider: Shaun Reyes MD Procedure Comments: Easy placement of MAC introducer device, placed in dual stick fashion. nesthesia Procedure Notes - Shaun Quinones MD - 08/16/2019 4:33 AM PDTAssociated Order(s): Art LineART LINE Inserted: After Induction 4 minutes to perform. ART Line Type: Standard Type Catheter: Arrowkit Indication: [id number] blood pressure monitoring and Frequent labs Location Performed: OR Informed Consent: Included in anesthesia consent PROCEDURE Skin Prep: Chloraprep Protective Barrier: Cap, Partially Draped, Sterile Gloves, Mask and Full-body drape Artery locater technique: ultrasound Ultrasound image: Printed and placed in patients chart Insertion side: right Insertion Site: radial artery Access device: 20 G Line secured with: sutured, tape and dressing applied ASSESSMENT Number of attempts: 1 Complications: None Assessment: Tolerated procedure well, Catheter connected to pressure line and flushed, cath eter manually flushed and Perfusion checked distal to catheter NARRATIVE Attending was physically present for the critical portions of the procedure as described in the procedure note Attending/Authorizing Provider: Art Felder MD Performing Provider: Shaun Reyes MD nesthesia Procedure Notes - Shaun Quinones MD - 08/16/2019 4:28 AM PDTAssociated Order(s): ETTAIRWAY Judith ANAGEMENT - ETT Time of Placement: 08/15/2019 11:13 PM Intubation Reason: For surgical procedure Positioning: Supine and Sniffing Location Performed:OR OXYGENATION Patient was preoxygenated Apneic oxygenation Grade: Grade 0 - Ventilation by mask not attempted Induction:Routine, without Cricoid Pressure INTUBATION ATTEMPT 1 Videolaryngoscopy: Glidescope Intubation Adjuncts: w/ Stylet Laryngoscopic View: Grade I ETT DETAILS ETT Type:Standard, Hi-Lo Cuffed Intubation Type: Oral Cuff Status: Cuffed Size: 7.5 ETT secured with adhesive tape Depth at Teeth: 23 cm Airway Leak: No CONFIRMATION Number of Attempts: 1 Atraumatic placement Positive for EtCO2:Waveform capnography Breath Sounds: Bilateral and equal NARRATIVE Attending was physically present for the critical portions of the procedure as described in the procedure note Attending/Authorizing Provider: Art Felder MD Performing Provider: Shaun Reyes MD Procedure Comments: Patient has limited jaw protrusion. Elective glidescope. Easy placement of 7.5 ETT, grade 1 view. nesthesia Preprocedu re Evaluation - Art Felder MD - 08/15/2019 10:50 PM PDTFormatting of this note might b e different from the original. Steffen Duran [id number] Allergies Allergen Reactions Doxycycline Hives and Rash NPO: Tube feeding off at 0830 Last Vitals Temp: 36.4 C (97.5 F) Heart Rate: 58 Resp: 17 BP: 99/61 SpO2: 96 % O2 Delivery Device: None (room air) Preg Status/LMP Patient Active Problem List Diagnosis Alcoholic cirrhosis of liver with ascites (HCC) Chronic kidney disease Hepatorenal syndrome (HCC) Abnormal echocardiogram Cirrhosis (HCC) CKD (chronic kidney disease) SVT (supraventricular tachycardia) (HCC) Paroxysmal A-fib (HCC) Chronic kidney disease, unspecified CKD stage Asymptomatic microscopic hematuria Left nephrolithiasis Anemia 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 Use as directed. DEFERIPRONE 500 MG TABLET Take 4 tablets (2,000mg) by mouth three times daily. FUROSEMIDE 20 MG TABLET Take 2 tablets by mouth two times daily. INSULIN LISPRO (U-100) 100 UNIT/ML SUBCUTANEOUS PEN Inject 10 Units under the skin (SUBC) t hree times daily before meals. Inject 10-15 minutes before eating. INSULIN NPH ISOPHANE U-100 HUMAN 100 UNIT/ML (3 ML) SUBCUTANEOUS PEN Inject 10 Units under the skin (SUBC) three times daily with meals. LACTULOSE 10 GRAM/15 ML ORAL SOLUTION Take 15 mL by mouth two times daily. LANCETS 28 GAUGE Use as directed METOPROLOL SUCCINATE ER 50 MG TABLET,EXTENDED RELEASE 24 HR Take 0.5 tablets by mouth once daily. SPIRONOLACTONE 100 MG TABLET Take 1 tablet by mouth once daily. Lab Results Component Value Date RATE 65 08/15/2019 ATRIALRATE 63 08/15/2019 CO 69 08/15/2019 QRS 146 08/15/2019 QT 697 08/15/2019 PAXIS 74 08/15/2019 RAXIS 42 08/15/2019 TAXIS 7 08/15/2019 ANESTHESIA PLAN ASA 4 Emergent NPO Status: NPO by protocol ANESTHETIC TECHNIQUE Technique Used: General MONITORS/LINES TO BE USED Art line CVP Other - RICH, MAC INFORMED CONSENT PARQ and risks/benefits of anesthetic plan discussed with Patient, Parent(s) and Sibling(s) Additional Consent Issues: Risk/benefit of blood products discussed Dental Risk discussed with patient PATIENT'S CODE STATUS IN OR FULL - full code nesthesia Preprocedu re Evaluation - Shaun Quinones MD - 08/15/2019 10:49 PM PDT Steffen Duran [id number] Allergies Allergen Reactions Doxycycline Hives and Rash NPO: Tube feeding off at 0830 Last Vitals Temp: 36.4 C (97.5 F) Heart Rate: 58 Resp: 17 BP: 99/61 SpO2: 96 % O2 Delivery Device: None (room air) Preg Status/LMP Patient Active Problem List Diagnosis Alcoholic cirrhosis of liver with ascites (HCC) Chronic kidney disease Hepatorenal syndrome (HCC) Abnormal echocardiogram Cirrhosis (HCC) CKD (chronic kidney disease) SVT (supraventricular tachycardia) (HCC) Paroxysmal A-fib (HCC) Chronic kidney disease, unspecified CKD stage Asymptomatic microscopic hematuria Left nephrolithiasis Anemia 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 Use as directed. DEFERIPRONE 500 MG TABLET Take 4 tablets (2,000mg) by mouth three times daily. FUROSEMIDE 20 MG TABLET Take 2 tablets by mouth two times daily. INSULIN LISPRO (U-100) 100 UNIT/ML SUBCUTANEOUS PEN Inject 10 Units under the skin (SUBC) t hree times daily before meals. Inject 10-15 minutes before eating. INSULIN NPH ISOPHANE U-100 HUMAN 100 UNIT/ML (3 ML) SUBCUTANEOUS PEN Inject 10 Units under the skin (SUBC) three times daily with meals. LACTULOSE 10 GRAM/15 ML ORAL SOLUTION Take 15 mL by mouth two times daily. LANCETS 28 GAUGE Use as directed METOPROLOL SUCCINATE ER 50 MG TABLET,EXTENDED RELEASE 24 HR Take 0.5 tablets by mouth once daily. SPIRONOLACTONE 100 MG TABLET Take 1 tablet by mouth once daily. Lab Results Component Value Date RATE 65 08/15/2019 ATRIALRATE 63 08/15/2019 CO 69 08/15/2019 QRS 146 08/15/2019 QT 697 08/15/2019 PAXIS 74 08/15/2019 RAXIS 42 08/15/2019 TAXIS 7 08/15/2019 ANESTHESIA PLAN ASA 4 NPO Status: NPO by protocol ANESTHETIC TECHNIQUE Technique Used: General Induction: Intravenous and Rapid Sequence Comments: Discussed anticipated need for transfusion, risk of volume overload, risk of hype rkalemia, cardiac distrubances, high risk of periop mortality compared to most surgeries MONITORS/LINES TO BE USED Art line CVP Standard ANESTHETIC CONSIDERATIONS IV when asleep BLOOD PRODUCTS T and S INFORMED CONSENT PARQ and risks/benefits of anesthetic plan discussed with Patient and Healthcare power of a ttorney Additional Consent Issues: Risk/benefit of blood products discussed Dental Risk discussed with patient PATIENT'S CODE STATUS IN OR FULL - full code documented in this en counter Miscellaneous Notes Addendum Note - Art Felder MD - 08/17/2019 8:33 AM PDT Addendum created 08/17/19832 by Art Felder MD Clinical Note Signed, Results reviewed in IB ddendum Note - Shaun Padilla MD - 08/16/2019 4:27 PM PDTFormatting of this note might be different f rom the original. Addendum created 08/16/19 162 by Shaun Reyes MD Intraprocedure LDAs edited, LDA properties accepted ddendum Note - Shaun Quinones MD - 08/16/2019 4:05 PM PDTFormatting of this note might be diff erent from the original. Addendum created 08/16/19 1605 by Shaun Reyes MD Intraprocedure Meds edited [facility] PreOp Note - Shaun Quinones MD - 08/15/2019 8:51 PM PDTROS: HPI: Donell Duran is a 54 year old male (TBW 98.2kg) who presents for liver transplantation. He has a history of alcoholic cirrhosis, c/b HE (on lactulose and rifaximin, last decompensation requiring admission to OSH), spur cell anemia requiring chronic transfusions with res ultant iron overload, KAR on CKD. Hemochromatosis. Other history is notable for SVT (Recent MICU admission for HRS and SVT, now on PO amiodaro ne and metoprolol. Elevated likelihood to require shock therapy intraoperatively per previou s anesthesia consult recommendations), h/o AF/AFL w/ RVR, EF 55-60% (low for hyperdynamics o f cirrhosis), IDDM, He currently has a 20g PIV in the R forearm. HCT 21.1. PLT 60. INR 3.24. PTT 73.6. Fibrinogen 141. T/S A+, screen negative. Last potassium 4.5 BUN 56, Cr 1.12. Prior Anesthetic Problems: No Pulmonary: No dx of sleep apnea No risk factors for sleep apnea: Cardiovascular: Functional Capacity: Low no CAD Sx no pacemaker/ICD GI/Hepatic: liver disease ascites and cirrhosis Child Blount: MELD: 34 Renal: renal failure Type: CKD and KAR Etiology: Other: Endo: Diabetes: type 2 Endocrine Other Parathyroid: hypoparathyroidism Neuro/Psych: Psych Disorder pain Current pain score: 0 Heme/Onc: Pt. has: no active bleeding bleeding disorder thrombocytopenia, Other, ESLD Infectious Disease: Within Defined Limits except as noted below Physical Exam General: Appearance: Older than stated age LOC: Alert HEENT: Abnormal findings Icterus Airway: Dentition: poor dentition missing teeth Mallampati: 2 Mouth Opening: > 3 cm TM Distance:> 6 cm C-Spine ROM: Normal Neck Anatomy: Normal Pulmonary: Respiratory: pulmonary exam normal Breath Sounds: decreased breath sounds Cardiovascular: Rhythm: Irregular Rate: Normal Heart sounds: murmur documented in this encounter Plan of Treatment [...] [address] | | | | | | [place] | | | | | | [address] | | | | | | [phone] | | | | | | | | +--------+ + + + + | 09/27/ | Telephone-S | Liver Transplant | Vimal Crowe MD | | | 2019 | [email or web address] | | [address] | | | | | | [place], | | | | | | [place] [address] | | | | | | [phone] | | | | | | | | +--------+ + + + + | 10/03/ | Appointment | Cardiology | | | | 2019 | | | | | +--------+ + + + + | 10/03/ | Office | Cardiology | Cyril Samuel | | | 2019 | Visit | | MD Patricia [address] [facility] | | | | | | [address] | | | | | | [place], [place] | | | | | | [address] | | | | | | [phone] | | | | | | | | +--------+ + + + + documented as of this encounter Procedures + +--------+ + + + | Procedure Name | Priori | Date/Time | Associated Diagnosis | Comments | | | ty | | | | + +--------+ + + + | ANE CVL | Routin | 08/16/2019 | | Results for this | | | e | 6:38 AM | | procedure are in the | | | | PDT | | results section. | + +--------+ + + + | ANE CVL | Routin | 08/16/2019 | | Results for this | | | e | 4:36 AM | | procedure are in the | | | | PDT | | results section. | + +--------+ + + + | ANE CVL | Routin | 08/16/2019 | | Results for this | | | e | 4:36 AM | | procedure are in the | | | | PDT | | results section. | + +--------+ + + + | ANE ART LINE | Routin | 08/16/2019 | | Results for this | | | e | 4:33 AM | | procedure are in the | | | | PDT | | results section. | + +--------+ + + + | ANE ETT | Routin | 08/16/2019 | | Results for this | | | e | 4:28 AM | | procedure are in the | | | | PDT | | results section. | + +--------+ + + + documented in this encounter Results CVL (08/16/2019 6:38 AM PDT) + + + | Narrative | Performed At | + + + | Shaun Reyes MD 08/16/2019 6:44 AM [facility] | | | LINE Catheter type: Triple lumen Double-Stick:double stick | | | technique Indication(s): Assessment of intravascular volume | | | Location Performed: OR Informed Consent: Included in anesthesia | | | consent PROCEDURE Skin Prep: Chloraprep Team pause: Performed | | | per policy Protective Barrier: Cap, Mask, Gown, Full-body drape, Hand | | | scrub and Gloves Vein Milieu Manager Technique: ultrasound guidance | | | Ultrasound image: Printed and placed in patient's chart Insertion | | | side:right Insertion Site: internal jugular Access device: 18G, | | | angiocath Position confirmed by: manometry Catheter size (Fr): 7 | | | Catheter length (cm): 15 SECURE AND FLUSH All ports aspirated | | | for blood Port flush: 0.9% saline Line secured with: suture Sterile | | | field while applying dressing: dressing applied prior of removal of | | | full barrier drape guidewire removal confirmed ASSESSMENT | | | Number of attempts: 1 Complications: None NARRATIVE Attending | | | was physically present for the critical portions of the procedure as | | | described in the procedure note Attending/Authorizing Provider: Art | | | Alek Felder MD Performing Provider: Shaun Reyes MD | | | Procedure Comments: Placed as part of dual stick. Easy cannulation | | | and guidewire placement. Guidewire confirmed to be in the IJ lumen. | | | Originally placed at hubbed CVC position (~15/16cm but distal port | | | not flushing), pulled back 2-3 more cm from hub. All ports flushed | | | and lencho blood without issue. | | + + + CVL (08/16/2019 4:36 AM PDT) + + + | Narrative | Performed At | + + + | Shaun Reyes MD 08/16/2019 4:37 AM [facility] | | | LINE Catheter type: Sheath/Introducer single lumen (cordis) - | | | Introducer only Double-Stick:double stick technique Indication(s): | | | Assessment of intravascular volume Location Performed: OR Informed | | | Consent: Included in anesthesia consent Anesthesia Method: General | | | anesthesia PROCEDURE Skin Prep: Chloraprep Team pause: Performed | | | per policy Protective Barrier: Cap, Mask, Gown, Full-body drape, | | | Hand scrub and Gloves Vein Milieu Manager Technique: ultrasound guidance | | | Ultrasound image: Printed and placed in patient's chart Insertion | | | side:right Insertion Site: internal jugular Access device: 18G, | | | angiocath Position confirmed by: manometry and ultrasound Catheter | | | size (Fr): 9 Catheter length (cm): Standard Insertion depth (cm): | | | 10 SECURE AND FLUSH All ports aspirated for blood Port flush: | | | 0.9% saline Line secured with: suture Sterile field while applying | | | dressing: site covered with sterile gauze prior to removing drape, | | | followed by application of sterile dressing guidewire removal | | | confirmed ASSESSMENT Number of attempts: 1 Complications: None | | | NARRATIVE Attending was physically present for the critical | | | portions of the procedure as described in the procedure note | | | Attending/Authorizing Provider: Art Felder MD Performing | | | Provider: Shaun Reyes MD Procedure Comments: Easy | | | placement of MAC introducer device, placed in dual stick fashion. | | + + + Art Line (08/16/2019 4:33 AM PDT) + + + | Narrative | Performed At | + + + | Shaun Reyes MD 08/16/2019 4:34 AM ART LINE | | | Inserted: After Induction 4 minutes to perform. ART Line Type: | | | Standard Type Catheter: Arrowkit Indication: Paod-tv-bbvn blood | | | pressure monitoring and Frequent labs Location Performed: OR | | | Informed Consent: Included in anesthesia consent PROCEDURE Skin | | | Prep: Chloraprep Protective Barrier: Cap, Partially Draped, Sterile | | | Gloves, Mask and Full-body drape Artery locater technique: | | | ultrasound Ultrasound image: Printed and placed in patients chart | | | Insertion side: right Insertion Site: radial artery Access | | | device: 20 G Line secured with: sutured, tape and dressing applied | | | ASSESSMENT Number of attempts: 1 Complications: None Assessment: | | | Tolerated procedure well, Catheter connected to pressure line and | | | flushed, catheter manually flushed and Perfusion checked distal to | | | catheter NARRATIVE Attending was physically present for the | | | critical portions of the procedure as described in the procedure | | | note Attending/Authorizing Provider: Art Felder MD Performing | | | Provider: Shaun Reyes MD | | + + + ETT (08/16/2019 4:28 AM PDT) + + + | Narrative | Performed At | + + + | Shaun Reyes MD 08/16/2019 4:33 AM [facility] | | | MANAGEMENT - ETT Time of Placement: 08/15/2019 11:13 PM Intubation | | | Reason: For surgical procedure Positioning: Supine and Sniffing | | | Location Performed:OR OXYGENATION Patient was preoxygenated | | | Apneic oxygenation Grade: Grade 0 - Ventilation by mask not attempted | | | Induction:Routine, without Cricoid Pressure INTUBATION | | | ATTEMPT 1 Videolaryngoscopy: Glidescope Intubation Adjuncts: w/ | | | Stylet Laryngoscopic View: Grade I ETT DETAILS ETT | | | Type:Standard, Hi-Lo Cuffed Intubation Type: Oral Cuff Status: | | | Cuffed Size: 7.5 ETT secured with adhesive tape Depth at Teeth: | | | 23 cm Airway Leak: No CONFIRMATION Number of Attempts: 1 | | | Atraumatic placement Positive for EtCO2:Waveform capnography Breath | | | Sounds: Bilateral and equal NARRATIVE Attending was physically | | | present for the critical portions of the procedure as described in | | | the procedure note Attending/Authorizing Provider: Art Felder MD | | | Performing Provider: Shaun Reyes MD Procedure | | | Comments: Patient has limited jaw protrusion. Elective glidescope. | | | Easy placement of 7.5 ETT, grade 1 view. | | + + + documented in this encounter Visit Diagnoses Not on filedocumented in this encounter Administered Medications + +--------+ +--------+------+------+ | Medication Order | MAR | Action | Dose | Rate | Site | | | Action | Date | | | | + +--------+ +--------+------+------+ | amiodarone (CORDARONE) | Given | 08/16/20 | 150 mg | | | | injection intravenous, | | 19 6:00 | | | | | INTRAPROCEDURE PRN, Starting Sun | | AM PDT | | | | | 08/16/19 at 0600, Until Sun | | | | | | | 08/16/19 at 0807 | | | | | | + +--------+ +--------+------+------+ +---+---+ | | | +---+---+ + +-------+ +-----+---+---+ | ampicillin injection 1 g 1 g, | Given | 08/16/20 | 1 g | | | | intravenous, PREPROCEDURE ONCE, 1 | | 19 12:45 | | | | | dose, Starting 08/15/19 at | | AM PDT | | | | | 1443, Until 08/16/19 at 0045 | | | | | | + +-------+ +-----+---+---+ +---+---+ | | | +---+---+ + +-------+ + +---+---+ | calcium chloride 10 % (100 | Given | 08/16/20 | 1,000 mg | | | | mg/mL) injection INTRAPROCEDURE | | 19 3:12 | | | | | PRN, Starting 08/16/19 at | | AM PDT | | | | | 0223, Until 08/16/19 at 0807 | | | | | | + +-------+ + +---+---+ +-------+ + +---+---+ | Given | 08/16/20 | 1,000 mg | | | | | 19 2:23 | | | | | | AM PDT | | | | +-------+ + +---+---+ +---+---+ | | | +---+---+ + +-------+ + +---+---+ | cefOXitin (MEFOXIN) injection | Given | 08/16/20 | 2,000 mg | | | | INTRAPROCEDURE PRN, Starting Sun | | 19 6:35 | | | | | 08/16/19 at 0045, Until Sun | | AM PDT | | | | | 08/16/19 at 0807 | | | | | | + +-------+ + +---+---+ +-------+ + +---+---+ | Given | 08/16/20 | 2,000 mg | | | | | 19 4:42 | | | | | | AM PDT | | | | +-------+ + +---+---+ | Given | 08/16/20 | 2,000 mg | | | | | 19 2:45 | | | | | | AM PDT | | | | +-------+ + +---+---+ +---+---+ | | | +---+---+ + +-------+ +--------+---+---+ | dextrose 50 % in water | Given | 08/16/20 | 12.5 g | | | | injection INTRAPROCEDURE PRN, | | 19 4:08 | | | | | Starting 08/16/19 at 0346, | | AM PDT | | | | | Until 08/16/19 at 0807 | | | | | | + +-------+ +--------+---+---+ +-------+ +------+---+---+ | Given | 08/16/20 | 25 g | | | | | 19 4:00 | | | | | | AM PDT | | | | +-------+ +------+---+---+ | Given | 08/16/20 | 25 g | | | | | 19 3:46 | | | | | | AM PDT | | | | +-------+ +------+---+---+ +---+---+ | | | +---+---+ + + + +---+---+---+ | electrolyte-R (NORMOSOL-R) IV | given by | 08/16/20 | | | | | infusion INTRAPROCEDURE | | 19 5:19 | | | | | CONTINUOUS PRN, Starting Sat | anesthes | AM PDT | | | | | 08/15/19 at 2307, Until Sun | iology | | | | | | 08/16/19 at 0807 | | | | | | + + + +---+---+---+ + + +---+---+---+ | given by anesthesiology | 08/16/20 | | | | | | 19 2:42 | | | | | | AM PDT | | | | + + +---+---+---+ | New Bag | 08/15/20 | | | | | | 19 11:07 | | | | | | PM PDT | | | | + + +---+---+---+ +---+---+ | | | +---+---+ + +-------+ +--------+---+---+ | EPINEPHrine (ADRENALIN) | Given | 08/16/20 | 10 mcg | | | | injection INTRAPROCEDURE PRN, | | 19 4:28 | | | | | Starting 08/16/19 at 0418, | | AM PDT | | | | | Until 08/16/19 at 0807 | | | | | | + +-------+ +--------+---+---+ +-------+ +--------+---+---+ | Given | 08/16/20 | 10 mcg | | | | | 19 4:19 | | | | | | AM PDT | | | | +-------+ +--------+---+---+ | Given | 08/16/20 | 10 mcg | | | | | 19 4:18 | | | | | | AM PDT | | | | +-------+ +--------+---+---+ +---+---+ | | | +---+---+ + +-------+ +---------+---+---+ | fentaNYL (SUBLIMAZE) injection | Given | 08/15/20 | 250 mcg | | | | INTRAPROCEDURE PRN, Starting Sat | | 19 11:11 | | | | | 08/15/19 at 2311, Until Sun | | PM PDT | | | | | 08/16/19 at 0807 | | | | | | + +-------+ +---------+---+---+ +---+---+ | | | +---+---+ + +-------+ +-------+---+---+ | furosemide (LASIX) injection | Given | 08/16/20 | 40 mg | | | | INTRAPROCEDURE PRN, Starting Sun | | 19 3:46 | | | | | 08/16/19 at 0346, Until Sun | | AM PDT | | | | | 08/16/19 at 0807 | | | | | | + +-------+ +-------+---+---+ +---+---+ | | | +---+---+ + +-------+ +---------+---+---+ | insulin regular bolus from | Given | 08/16/20 | 7 Units | | | | continuous infusion | | 19 7:10 | | | | | INTRAPROCEDURE PRN, Starting Sun | | AM PDT | | | | | 08/16/19 at 0346, Until Sun | | | | | | | 08/16/19 at 0807 | | | | | | + +-------+ +---------+---+---+ +-------+ +---------+---+---+ | Given | 08/16/20 | 5 Units | | | | | 19 6:42 | | | | | | AM PDT | | | | +-------+ +---------+---+---+ | Given | 08/16/20 | 7 Units | | | | | 19 5:23 | | | | | | AM PDT | | | | +-------+ +---------+---+---+ +---+---+ | | | +---+---+ + + + + + +---+ | insulin regular in NaCl 0.9% IV | Rate/Dos | 08/16/20 | 10 | 10 mL/hr | | | infusion (1 unit/mL) | e Change | 19 4:16 | Units/hr | | | | INTRAPROCEDURE CONTINUOUS PRN, | | AM PDT | | | | | Starting 08/16/19 at 0332, | | | | | | | Until 08/16/19 at 0807 | | | | | | + + + + + +---+ +---------+ + +---------+---+ | New Bag | 08/16/20 | 5 | 5 mL/hr | | | | 19 3:32 | Units/hr | | | | | AM PDT | | | | +---------+ + +---------+---+ +---+---+ | | | +---+---+ + +-------+ +--------+---+---+ | lidocaine (XYLOCAINE MPF) 2 % | Given | 08/16/20 | 100 mg | | | | (20 mg/mL) injection | | 19 7:18 | | | | | intravenous, INTRAPROCEDURE PRN, | | AM PDT | | | | | Starting 08/15/19 at 2311, | | | | | | | Until 08/16/19 at 0807 | | | | | | + +-------+ +--------+---+---+ +-------+ +--------+---+---+ | Given | 08/16/20 | 100 mg | | | | | 19 6:57 | | | | | | AM PDT | | | | +-------+ +--------+---+---+ | Given | 08/15/20 | 100 mg | | | | | 19 11:11 | | | | | | PM PDT | | | | +-------+ +--------+---+---+ +---+---+ | | | +---+---+ + +-------+ +--------+---+---+ | lidocaine PF (XYLOCAINE MPF) 10 | Given | 08/16/20 | 100 mg | | | | mg/mL (1 %) injection | | 19 3:35 | | | | | INTRAPROCEDURE PRN, Starting Sun | | AM PDT | | | | | 08/16/19 at 0335, Until Sun | | | | | | | 08/16/19 at 0807 | | | | | | + +-------+ +--------+---+---+ +---+---+ | | | +---+---+ + +-------+ +-----+---+---+ | magnesium sulfate in water IV | Given | 08/16/20 | 1 g | | | | (RTU) intravenous, | | 19 6:00 | | | | | INTRAPROCEDURE PRN, Starting Sun | | AM PDT | | | | | 08/16/19 at 0331, Until Sun | | | | | | | 08/16/19 at 0807 | | | | | | + +-------+ +-----+---+---+ +-------+ +-----+---+---+ | Given | 08/16/20 | 1 g | | | | | 19 3:31 | | | | | | AM PDT | | | | +-------+ +-----+---+---+ | Given | 08/16/20 | 2 g | | | | | 19 3:12 | | | | | | AM PDT | | | | +-------+ +-----+---+---+ +---+---+ | | | +---+---+ + +-------+ +--------+---+---+ | methylPREDNISolone sod succ | Given | 08/16/20 | 500 mg | | | | (PF) (SOLU-MEDROL) injection | | 19 12:51 | | | | | INTRAPROCEDURE PRN, Starting Sun | | AM PDT | | | | | 08/16/19 at 0051, Until Sun | | | | | | | 08/16/19 at 1600 | | | | | | + +-------+ +--------+---+---+ +---+---+ | | | +---+---+ + +---------+ + +---+---+ | mycophenolate (CELLCEPT) IV | New Bag | 08/16/20 | 1,500 mg | | | | 1,000 mg 1,000 mg, intravenous, | | 19 7:29 | | | | | 6A INTRAPROCEDURE ONCE | | AM PDT | | | | | (DISPENSE), 1 dose, Starting Sat | | | | | | | 08/15/19 at 1441, Until Sun | | | | | | | 08/16/19 at 0930 | | | | | | + +---------+ + +---+---+ +---+---+ | | | +---+---+ + + + + +--------+---+ | norepinephrine (LEVOPHED) | Rate/Dos | 08/16/20 | 0.1 | 18.41 | | | 8mg/250 mL (0.032 mg/mL) IV | e Change | 19 4:50 | mcg/kg/m | mL/hr | | | infusion (RTU) INTRAPROCEDURE | | AM PDT | in | | | | CONTINUOUS PRN, Starting Sun | | | | | | | 08/16/19 at 0050, Until Sun | | | | | | | 08/16/19 at 0807 | | | | | | + + + + +--------+---+ + + + +--------+---+ | Rate/Dose Change | 08/16/20 | 0.2 | 36.83 | | | | 19 4:30 | mcg/kg/m | mL/hr | | | | AM PDT | in | | | + + + +--------+---+ | Rate/Dose Change | 08/16/20 | 0.1 | 18.41 | | | | 19 4:22 | mcg/kg/m | mL/hr | | | | AM PDT | in | | | + + + +--------+---+ +---+---+ | | | +---+---+ + +-------+ +---------+---+---+ | PHENYLEPHrine 100 mcg/mL IV | Given | 08/16/20 | 200 mcg | | | | syringe intravenous, | | 19 12:24 | | | | | INTRAPROCEDURE PRN, Starting Sun | | AM PDT | | | | | 08/16/19 at 0020, Until Sun | | | | | | | 08/16/19 at 0807 | | | | | | + +-------+ +---------+---+---+ +-------+ +---------+---+---+ | Given | 08/16/20 | 100 mcg | | | | | 19 12:20 | | | | | | AM PDT | | | | +-------+ +---------+---+---+ +---+---+ | | | +---+---+ + + + + +--------+---+ | PHENYLEPHrine 25 mg/250 mL (0.1 | Rate/Dos | 08/16/20 | 1 | 58.92 | | | mg/mL) IV infusion (ADC) | e Change | 19 7:05 | mcg/kg/m | mL/hr | | | intravenous, INTRAPROCEDURE | | AM PDT | in | | | | CONTINUOUS PRN, Starting Sat | | | | | | | 08/15/19 at 2322, Until Sun | | | | | | | 08/16/19 at 0807 | | | | | | + + + + +--------+---+ + + + +--------+---+ | Rate/Dose Change | 08/16/20 | 0.7 | 41.24 | | | | 19 4:30 | mcg/kg/m | mL/hr | | | | AM PDT | in | | | + + + +--------+---+ | Rate/Dose Change | 08/16/20 | 0.7 | 41.24 | | | | 19 4:01 | mcg/kg/m | mL/hr | | | | AM PDT | in | | | + + + +--------+---+ +---+---+ | | | +---+---+ + +-------+ +--------+---+---+ | propofol (DIPRIVAN) injection | Given | 08/15/20 | 100 mg | | | | INTRAPROCEDURE PRN, Starting Sat | | 19 11:11 | | | | | 08/15/19 at 2311, Until Sun | | PM PDT | | | | | 08/16/19 at 0807 | | | | | | + +-------+ +--------+---+---+ +---+---+ | | | +---+---+ + +-------+ +--------+---+---+ | rocuronium injection | Given | 08/15/20 | 120 mg | | | | INTRAPROCEDURE PRN, Starting Sat | | 19 11:11 | | | | | 08/15/19 at 2311, Until Sun | | PM PDT | | | | | 08/16/19 at 0807 | | | | | | + +-------+ +--------+---+---+ +---+---+ | | | +---+---+ + +-------+ +--------+---+---+ | sodium bicarbonate injection | Given | 08/16/20 | 50 mEq | | | | 8.4 % (1 mEq/mL) INTRAPROCEDURE | | 19 4:07 | | | | | PRN, Starting 08/16/19 at | | AM PDT | | | | | 0325, Until 08/16/19 at 0807 | | | | | | + +-------+ +--------+---+---+ +-------+ +--------+---+---+ | Given | 08/16/20 | 50 mEq | | | | | 19 3:45 | | | | | | AM PDT | | | | +-------+ +--------+---+---+ | Given | 08/16/20 | 50 mEq | | | | | 19 3:25 | | | | | | AM PDT | | | | +-------+ +--------+---+---+ +---+---+ | | | +---+---+ + +---------+ +---+---+---+ | TRANSFUSE FRESH FROZEN PLASMA | New Bag | 08/16/20 | | | | | | | 19 1:46 | | | | | | | AM PDT | | | | + +---------+ +---+---+---+ +---+---+ | | | +---+---+ + +---------+ +---+---+---+ | TRANSFUSE FRESH FROZEN PLASMA | New Bag | 08/16/20 | | | | | | | 19 3:26 | | | | | | | AM PDT | | | | + +---------+ +---+---+---+ +---+---+ | | | +---+---+ + +---------+ +---+---+---+ | TRANSFUSE FRESH FROZEN PLASMA | New Bag | 08/16/20 | | | | | | | 19 5:47 | | | | | | | AM PDT | | | | + +---------+ +---+---+---+ +---+---+ | | | +---+---+ + +---------+ +---+---+---+ | TRANSFUSE PLATELET PHERESIS, | New Bag | 08/16/20 | | | | | LEUKOREDUCED | | 19 2:00 | | | | | | | AM PDT | | | | + +---------+ +---+---+---+ +---+---+ | | | +---+---+ + +---------+ +---+---+---+ | TRANSFUSE RED CELLS, | New Bag | 08/16/20 | | | | | LEUKOREDUCED | | 19 12:53 | | | | | | | AM PDT | | | | + +---------+ +---+---+---+ +---+---+ | | | +---+---+ + +---------+ +---+---+---+ | TRANSFUSE RED CELLS, | New Bag | 08/16/20 | | | | | LEUKOREDUCED | | 19 1:42 | | | | | | | AM PDT | | | | + +---------+ +---+---+---+ +---+---+ | | | +---+---+ + +---------+ +---+---+---+ | TRANSFUSE RED CELLS, | New Bag | 08/16/20 | | | | | LEUKOREDUCED | | 19 3:29 | | | | | | | AM PDT | | | | + +---------+ +---+---+---+ +---+---+ | | | +---+---+ + +---------+ +---+---+---+ | TRANSFUSE RED CELLS, | New Bag | 08/16/20 | | | | | LEUKOREDUCED | | 19 4:41 | | | | | | | AM PDT | | | | + +---------+ +---+---+---+ +---+---+ | | | +---+---+ + +---------+ +---+---+---+ | TRANSFUSE RED CELLS, | New Bag | 08/16/20 | | | | | LEUKOREDUCED | | 19 5:07 | | | | | | | AM PDT | | | | + +---------+ +---+---+---+ +---+---+ | | | +---+---+ + +---------+ +---+---+---+ | TRANSFUSE RED CELLS, | New Bag | 08/16/20 | | | | | LEUKOREDUCED | | 19 5:08 | | | | | | | AM PDT | | | | + +---------+ +---+---+---+ +---+---+ | | | +---+---+ + +-------+ +---------+---+---+ | vasopressin (PITRESSIN) | Given | 08/16/20 | 1 Units | | | | injection INTRAPROCEDURE PRN, | | 19 7:16 | | | | | Starting 08/16/19 at 0120, | | AM PDT | | | | | Until 08/16/19 at 0807 | | | | | | + +-------+ +---------+---+---+ +-------+ +---------+---+---+ | Given | 08/16/20 | 1 Units | | | | | 19 6:57 | | | | | | AM PDT | | | | +-------+ +---------+---+---+ | Given | 08/16/20 | 1 Units | | | | | 19 4:19 | | | | | | AM PDT | | | | +-------+ +---------+---+---+ +---+---+ | | | +---+---+ + + + + + +---+ | vasopressin 20 Units/100 mL | Rate/Dos | 08/16/20 | 3 | 15 mL/hr | | | (0.2 Unit/mL) in NS IV infusion | e Change | 19 7:09 | Units/hr | | | | (RTU) INTRAPROCEDURE CONTINUOUS | | AM PDT | | | | | PRN, Starting [place] 08/16/19 at | | | | | | | 0651, Until [place] 08/16/19 at 0807 | | | | | | + + + + + +---+ + + + + +---+ | Rate/Dose Change | 08/16/20 | 2 | 10 mL/hr | | | | 19 7:04 | Units/hr | | | | | AM PDT | | | | + + + + +---+ | New Bag | 08/16/20 | 1 | 5 mL/hr | | | | 19 6:51 | Units/hr | | | | | AM PDT | | | | + + + + +---+ +---+---+ | | | +---+---+ documented in this encounter"
--- OUTSIDE RECORDS SUMMARY | ~2020-07-29 | XMS | Encounter Summary ---
Demographics + + + | Address | [address] | | | [place] [address] | + + + | Home Phone [...] [place] | | | | | [address] | | + + + + + Care Team Providers + +------+ + | Care Awning Spreader Name | Role | Phone | + [...] Description | +--------+--------+ + + + | 05/09/ | Refill | Liver Transplant | Pattie Ignacio, | Refill Request | | 2020 | | at [facility] [address] | PA-C [address] | | | | | [address] | [address] | | | | | Physician's | [place], [place] | | | | | Pavilion, 2nd floor | [address] | | | | | [facility] [place] | [phone] | | | | | [address] | | | | | | [phone] | | | +--------+--------+ + + + [...] [place] | | | | | | [address] | | | | | | [phone] | | | | | | | | +--------+ + + + + | 09/27/ | Telephone-S | Liver Transplant | Vimal Crowe MD | | | 2019 | [place] | | [address] | | | | | | [address], | | | | | | [place] [address] | | | | | | [phone] | | | | | | | [...] [address] | | | | | | [place], [place] | | | | | | [address] | | | | | | [phone] | | | | | | | | +--------+ + + + + documented as of this encounter Visit Diagnoses Not on filedocumented in this encounter"
--- OUTSIDE RECORDS SUMMARY | ~2020-07-29 | XMS | Encounter Summary ---
Demographics + + + | Address | [address] | | | [place] [address] | + + + | Home Phone [...] [place] | | | | | [address] | | + + + + + Care Team Providers + +------+ + | Care Sign Painter Helper Name | Role | Phone | + +------+ + | Sharon David MD | PCP | | + +------+ + Encounter Details +--------+ + + + + | Date | Type | Department | Care Team | Description | +--------+ + + + + | 11/09/ | Telephone | [facility] | Tyson Bellamy, | | | 2019 | | Clinics at S | MD [address] | | | | | [address] [place], | | | | | [address] [facility] | [place] [address] | | | | | [facility], | [phone] | | | | | [address] | | | | | | [place], [place] | | | | | | [address] | | | | | | [phone] | | | +--------+ + + + [...] Rd | | | | | | [place], [place] | | | | | | [address] | | | | | | [phone] | | | | | | | | +--------+ + + + + | 09/27/ | Telephone-S | Liver Transplant | Vimal Crowe MD | | | 2019 | cheduled | | [address] | | | | | | [address], | | | | | | [place] [address] | | | | | | [phone] | | | | | | | [...] [address] | | | | | | [place], [place] | | | | | | [address] | | | | | | [phone] | | | | | | | | +--------+ + + + + documented as of this encounter Results FERRITIN (11/16/2019 7:41 AM PST) + + + + + + | Component | Value | Ref Range | Performed | Pathologist | | | | | At | Signature | + + + + + + | FERRITIN | 189Comment: Male and | 50 - 200 ng/mL | [facility] [...] | + + + + + | [facility] | [address] | [place] [address] | | | SERVICES, CORE | [address] | | | + + + + + documented in this encounter Visit Diagnoses + + | Diagnosis | + + | Iron overload - Primary Other disorders of iron metabolism | + + documented in this encounter"
--- OUTSIDE RECORDS SUMMARY | ~2020-07-29 | XMS | Encounter Summary ---
Demographics + + + | Address | [address] | | | [place] [address] | + + + | Home Phone [...] [place] | | | | | [address] | | + + + + + Care Team Providers + +------+ + | Care Contract Associate Manager Name | Role | Phone | + +------+ + | Sharon David MD | PCP | | + +------+ + Reason for Visit + +--------+ + | Reason | Onset | Comments | | | Date | | + +--------+ + | Social Work Notes | 11/10/ | | | | 2020 | | + +--------+ + Encounter Details +--------+ + + + + | Date | Type | Department | Care Team | Description | +--------+ + + + + | 11/10/ | Telephone | Liver Transplant | Liv Stephenson, | Social Work Notes | | 2020 | | at [facility] [address] | [facility] [address] | | | | | [address] | [address] | | | | | [address] | [place], [place] | | | | | [place], [place] | [address] | | | | | [address] | [phone] | | | | | [phone] | | | +--------+ + + + [...] Telephone Encounter - Liv Stephenson LCSW - 11/10/2019 9:41 AM PSTSocial Work Note: Tank[place] called pt to check in on his housing situation and mental health. Pt reports he plan s to stay in his rental until 11/19/19 and then will move into his new duplex which he's rent ed in [facility]. Pt reports he's coping well and has pretty much been on his own since d heladio. He reports his son "consuelo" on him. He does share his cousin who lives in [place] has been in touch and has come over to visit. Pt shares he needs to get an appointment with PCP. Pt reports he has been in touch with his counselor and plans to re-engage with her once he gets settled. Plan: [facility] will continue to be available to provide support and assistance as needed. Liv Stephenson LCSW Liver Transplant Crystallographer Pager [phone] documented in this encounter Plan of Treatment +--------+ + + + + | Date | Type | Specialty | Care Team | Description | +--------+ + + + + | 08/08/ | Telephone-S | Nephrology | Angélica Chao, | | 2019 | [place] | | [address] | | | | | | [facility] | | | | | | [place], [place] | | | | | | [address] | | | | | | [phone] | | | | | | | | +--------+ + + + + | 09/27/ | Telephone-S | Liver Transplant | Viaml Crowe MD | | | 2019 | cheduled | | [address] | | | | | | [place], | | | | | | [place] [address] | | | | | | [phone] | | | | | | | | +--------+ + + + + | 10/03/ | Appointment | Cardiology | | | | 2019 | | | | | +--------+ + + + + | 10/03/ | Office | Cardiology | Cyril Samuel | | | 2019 | Visit | | MD [place] [address] | | | | | | [address] | | | | | | [place] | | | | | | [address] | | | | | | [phone] | | | | | | | | +--------+ + + + + documented as of this encounter Visit Diagnoses Not on filedocumented in this encounter
--- OUTSIDE RECORDS SUMMARY | ~2020-07-29 | XMS | Encounter Summary ---
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[address] | | | | | liver with | Sanjay | [place], [place] | | | | | ascites | [address] | [address] | | | | | (HCC) | [place], [place] | Phone: | | | | | Preoperative | [address] | [phone] | | | | | examination | Phone: | Fax: | | | | | Internal | [phone] | [phone] | | | | | organ | Fax: | | | | | | deficiencies | [phone] | | | | | | Procedures | | | | | | | CONSULT TO | | | | | | | UROLOGY | | | +--------+--------+ + + + + Encounter Details +--------+---------+ + + + | Date | Type | Department | Care Team | Description | +--------+---------+ + + + | 05/20/ | Office | Urology at [facility] | Dipesh Diego MD | Urinary tract | | 2019 | Visit | [address] | [address] | infection without | | | | [place] [facility] | [place], [place] | hematuria, site | | | | and Healing, | [address] | unspecified (Primary | | | | Building | [phone] | Dx); Hematuria, | | | | Floor [place], [place] | | microscopic; Left | | | | [address] | | nephrolithiasis | | | | [phone] | | | +--------+---------+ + + + [...] + + + | Blood Pressure | 104/56 | 05/20/2019 11:19 AM | | | | | PDT | | + + + + + | Pulse | 59 | 05/20/2019 11:19 AM | | | | | PDT | | + + + + + | Temperature | - | - | | + + + + + | Respiratory Rate | - | - | | + + + + + | Oxygen Saturation | 100% | 05/20/2019 11:19 AM | | | | | PDT | | + + + + + | Inhaled Oxygen | - | - | | | Concentration | | | | + + + + + | Weight | 88.2 kg (194 lb 6.4 | 05/20/2019 11:19 AM | | | | oz) | PDT | | + + + + + | Height | 180.3 cm (5' 11") | 05/20/2019 11:19 AM | | | | | PDT | | + + + + + | Body Mass Index | 27.11 | 05/20/2019 11:19 AM | | | | | PDT [...] documented as of this encounter Progress Notes Dipesh Diego MD - 05/20/2019 11:00 AM PDTFormatting of this note might be different from dominick james. He's here from [facility] with the two women in his family. They drive from [place], pick him up and bring him to his [facility] appointments. The reason for his appointment with me is to assess his microscopic hematuria. His risk fac tors for urinary tract cancer are male, age >50, tobacco, and moderate to large blood on seq uential UAs. Allergies Allergen Reactions Doxycycline Hives and Rash Current Outpatient Medications: deferiprone 500 mg oral tablet, Take 4 tablets (2,000mg) by mouth three times daily., Disp: 360 tablet, Rfl: 3 furosemide 20 mg oral tablet, Take 2 tablets by mouth two times daily., Disp: , Rfl: lactulose 10 gram/15 mL oral solution, Take 15 mL by mouth two times daily., Disp: 15 mL, R fl: metoprolol tartrate 25 mg oral tablet, Take 0.5 tablets by mouth every six hours. Indicatio ns: Paroxysmal Supraventricular Tachycardia, Disp: 120 tablet, Rfl: 2 spironolactone 100 mg oral tablet, Take 1 tablet by mouth once daily., Disp: , Rfl: BP 104/56 | Pulse 59 | Ht 1.803 m (5' 11") | Wt 88.2 kg (194 lb 6.4 oz) | SpO2 100% | BMI 27.11 kg/m | BSA 2.1 m Jaundiced. Appears to be competent to make medical decisions for himself. Penis: circumcised; no balanitis, no coronal lesions, no plaque of Peyronie's disease; Left testes: no masses or tenderness; no varicocele. Left epididymis: no masses or tenderness. Right testis: no masses or tenderness. Right epididymis: no masses or tenderness. Left inguinal hernia: no. Right inguinal hernia: no. Perianal area: normal. Rectum: no masses. Blood on exam glove: no. Prostate: estimated 25 grams; no nodules. UA today: Moderate blood (a previous one [...] Microscopic hematuria due to left renal asymptomatic P: Notify them of the cytology report by MyChart or telephone. Level 3 new patient visit + cystoscopy. Dipesh Diego MD Professor of Urology fast food sales assistant, Division of Abdominal Organ Transplantation Faith Pennington MA - 05/20 11:00 AM PDTnonn documented in this enco unter Plan of [...] Rd | | | | | | [place], [place] | | | | | | [address] | | | | | | [phone] | | | | | | | | +--------+ + + + + | 09/27/ | Telephone-S | Liver Transplant | Vimal Crowe MD | | | 2019 | [place] | | [address] | | | | | | [address], | | | | | | [place] [address] | | | | | | [phone] | | | | | | | | +--------+ + + + + | 10/03/ | Appointment | Cardiology | | | | 2019 | | | | | +--------+ + + + + | 10/03/ | Office | Cardiology | Cyril Samuel | | | 2019 | Visit | | MD Patricia [address] [facility] | | | | | | [address] | | | | | | [place], [place] | | | | | | [address] | | | | | | [phone] | | | | | | | | +--------+ + + + + documented as of this encounter Procedures + +--------+ + + + | Procedure Name | Priori | Date/Time | Associated Diagnosis | Comments | | | ty | | | | + +--------+ + + + | NON RADIO OPERATOR CYTOLOGY | Routin | 05/20/2019 | Urinary tract | Results for this | | | e | 12:24 PM | infection without | procedure are in the | | | | PDT | hematuria, site | results section. | | | | | unspecified | | + +--------+ + + + | UA DIPSTICK 10 DIP | Routin | 05/20/2019 | Urinary tract | Results for this | | W/O MICRO | e | 11:30 AM | infection without | procedure are in the | | (AUTOMATED), POC | | PDT | hematuria, site | results section. | | | | | unspecified | | + +--------+ + + + | CO CYSTOURETHROSCOPY | Routin | 05/20/2019 | Hematuria, | Results for this | | | e | | microscopic | procedure are in the | | | | | | results section. | + +--------+ + + + documented in this encounter Results NON RADIO OPERATOR CYTOLOGY (05/20/2019 12:24 PM PDT) + + + + + + | Component | Value | Ref Range | Performed | Pathologist | | | | | At | Signature | + + + + + + | Clinical | 54 year-old man presents | | [facility] | | | History | for evaluation of | | DEPARTMENT | | | | microscopic hematuria | | OF | | | | | | PATHOLOGY | | + + + + + + | Final | A. Bladder washing: | | [facility] | Electronically | | Pathologic | Atypical, favor reactive | | DEPARTMENT | signed by Sadiq | | Diagnosis | changesCase seen | | OF | K MD Harshal | | | by:oSheila Piña, | | PATHOLOGY | on 05/21/2019 at | | | CT(ASCP) - | | | 4:34 PM | | | CytotechnologistAshley | | | | | | VIKASH Zafar, MPH | | | | | | | | | | | | Pathology ResidentTerry | | | | | | MD Harshal, PhD | | | | | | | | | | | | PathologistPathology, | | | | | | [facility] | | | | | | [facility] electronic | | | | [...] + | Gross | A. Received is 80 mL of | | [facility] | | | Description | clear pale yellow fluid | | DEPARTMENT | | | | for cytologic | | OF | | | | evaluation. [facility] | | PATHOLOGY | | | | slide prepared. A cell | | | | | | block was not performed. | | | | + + + + + + + + | Specimen | + + | Fluid - Bladder | | washing | + + + + + + + | Performing | Address | City/State/Zipcode | Phone Number | | Organization | | | | + + + + + | [facility] | [address] | [place] [address] | | | PATHOLOGY | [address] | | | + + + + + UA 10 DIP, POC (05/20/2019 11:30 AM PDT) + + + + + + | Component | Value | Ref Range | Performed | Pathologist | | | | | At | Signature | + + + + + + | COLOR (UA | Other | | [facility], | | | DIP), POC | | | POINT OF | | | | | | CARE TESTS | | + + + + + + | APPEARANCE | Clear | | [facility], | | | (UA DIP), | | | POINT OF | | | POC | | | CARE TESTS | | + + + + + + | LEUKOCYTES | Negative | Negative | [facility], | | | (UA DIP), | | | POINT OF | | | POC | | | CARE TESTS | | + + + + + + | NITRITES | Negative | Negative | [facility], | | | (UA DIP), | | | POINT OF | | | POC | | | CARE TESTS | | + + + + + + | UROBILINOGE | 0.2 | 0.2 - 1.0 | [facility], | | | N (UA DIP), | | E.U./dL | POINT OF | | | POC | | | CARE TESTS | | + + + + + + | PROTEIN (UA | Negative | Neg - Trace | [facility], | | | DIP), POC | | mg/dL | POINT OF | | | | | | CARE TESTS | | + + + + + + | PH (UA | 5.5 | 5.0 - 8.0 | [facility], | | | DIP), POC | | | POINT OF | | | | | | CARE TESTS | | + + + + + + | BLOOD (UA | Moderate (A) | Negative | [facility], | | | DIP), POC | | | POINT OF | | | | | | CARE TESTS | | + + + + + + | SPECIFIC | 1.010 | 1.005 - 1.030 | [facility], | | | GRAVITY (UA | | | POINT OF | | | DIP), POC | | | CARE TESTS | | + + + + + + | KETONES (UA | Negative | Negative mg/dL | [facility], | | | DIP), POC | | | POINT OF | | | | | | CARE TESTS | | + + + + + + | BILIRUBIN | Small (A) | Negative | [facility], | | | (UA DIP), | | | POINT OF | | | POC | | | CARE TESTS | | + + + + + + | GLUCOSE (UA | Negative | Negative - | [facility], | | | DIP), POC | | Trace mg/dL | POINT OF | | | | | | CARE TESTS | | + + + + + + + + | Specimen | + + | Urine - Urine | | (substance) | + + + + + + + | Performing | Address | City/State/Zipcode | Phone Number | | Organization | | | | + + + + + | [facility] | [address] | [place] [address] | | | OF CARE TESTS | | | | + + + + + CO CYSTOURETHROSCOPY (05/20/2019) + + + | Narrative | Performed At | + + + | Indications: Microscopic hematuria. Findings: The anterior | | | urethra was normal. The prostatic urethra was 3 cm long and bilobar | | | without a high bladder neck. The ureteral orifices were normal and | | | did not efflux blood. The urinary bladder was not trabeculated. | | | There were no bladder stones. There were no bladder tumors. | | | Procedure: The pause procedure was done. The urethral meatus was | | | prepped. The flexible cystoscope was passed into the urinary | | | bladder. The bladder and urethra were inspected. A bladder wash for | | | cytology was done. The cystoscope was removed. I did the | | | procedures.. Dipesh Diego M.D. Professor of Urology Professor | | | of Surgery, Division of Abdominal Organ Transplantation | | + + + documented in this encounter Visit Diagnoses + + | Diagnosis | + + | Urinary tract infection without hematuria, site unspecified - Primary | + + | Hematuria, microscopic Microscopic hematuria | + + | Left nephrolithiasis | + + documented in this encounter
--- OUTSIDE RECORDS SUMMARY | ~2020-07-29 | XMS | Encounter Summary ---
Demographics + + + | Address | [address] | | | [place] [address] | + + + | Home Phone [...] [place] | | | | | [address] | | + + + + + Care Team Providers + +------+ + | Care Firefighter Marine Name | Role | Phone | + +------+ + | Sharon David MD | PCP | | + +------+ + Encounter Details +--------+ + + + + | Date | Type | Department | Care Team | Description | +--------+ + + + + | 12/02/ | Abstract | Clinical | Vimal Crowe MD | | | 2020 | | Transplant Services | [address] | | | | | [address] | [address] [employer] [employer], | | | | | [place] [address] [place], | [place] [address] | | | | | [place] [address] | [phone] | | | | | [phone] | | | +--------+ + + + [...] Rd | | | | | | [place], [place] | | | | | | [address] | | | | | | [phone] | | | | | | | | +--------+ + + + + | 09/27/ | Telephone-S | Liver Transplant | Vimal Crowe MD | | | 2019 | [place] | | [address] | | | | | | [facility] [address] [place], | | | | | | [place] [address] | | | | | | [phone] | | | | | | | | +--------+ + + + + | 10/03/ | Appointment | Cardiology | | | | 2019 | | | | | +--------+ + + + + | 10/03/ | Office | Cardiology | Cyril Samuel | | | 2019 | Visit | Darren Gomez MD [address] | | | | | | [address] | | | | | | [place], [place] | | | | | | [address] | | | | | | [phone] | | | | | | | | +--------+ + + + + documented as of this encounter Procedures + +--------+ + + + | Procedure Name | Priori | Date/Time | Associated Diagnosis | Comments | | | ty | | | | + +--------+ + + + | LIVER TRANSPLANT | Routin | 11/30/2019 | | Results for this | | POST PANEL (EXT | e | 11:19 AM | | procedure are in the | | RESULTS) | | PST | | results section. | + +--------+ + + + documented in this encounter Results LIVER TRANSPLANT POST PANEL (EXT RESULTS) (11/30/2019 11:19 AM PST) + + + + + [...] + + + + | POTASSIUM, | 5.9 | mmol/L | [facility] | | | PLASMA | | | LAB - | | | (LAB) | | | [place] | | + + + + + + | CHLORIDE, | 104 | mmol/L | [facility] | | | [...] + + + + | GLUCOSE, | 218 (A) | 65 - 110 mg/dL | [...] + + + + | CREATININE | 2.28 | mg/dL | [facility] | | | [...] + + + | TOTAL | 5.7 | g/dL | [facility] | | | [...] + | ALK PHOS | 72 | U/L | [facility] | | | | | | LAB - | | | | | | [place] | | + + + + + + | LDH, SERUM | 194 | U/L | [facility] | | | [...] + + + + + | GAMMA | 14 | U/L | [facility] | | | GLUTAMYL | | | LAB - | | | TRANS | | | [place] | | + + + + + + | WHITE CELL | 14.8 | K/cu mm | [facility] | | | COUNT | | | LAB - | | | | | | [place] | | + + + + + + | HEMATOCRIT | 31.4 | % | [facility] | | | | | | LAB - | | | | | | [place] | | + + + + + + | HEMOGLOBIN | 10.3 (A) | 13.5 - 17.5 | [facility] | | | | | g/dL | LAB - | | | | | | [place] | | + + + + + + | PLATELET | 112 | K/cu mm | [facility] | | [...] | [address] | [place] | [phone] | | [place] | | | | + + + + + documented in this encounter Visit Diagnoses Not on filedocumented in this encounter"
--- OUTSIDE RECORDS SUMMARY | ~2020-07-29 | XMS | Encounter Summary ---
Demographics + + + | Address | [address] | | | [place] [address] | + + + | Home Phone [...] [place] | | | | | [address] | | + + + + + Care Team Providers + +------+ + | Care Model Artists' Name | Role | Phone | + +------+ + | Sharon David MD | PCP | | + +------+ + Reason for Visit + + + | Reason | Comments | + + + | Liver Transplant | neupogen/filgrastim | | Follow Up | | + + + Encounter Details +--------+ + + + + | Date | Type | Department | Care Team | Description | +--------+ + + + + | 11/19/ | Adding Machine Servicer | Clinical | Cecille Brunner RN | | | 2019 | | Transplant Services | [address] | | | | | [address] | [facility], | | | | | [place], | [place] [address] | | | | | [place] [address] | | | | | | [phone] | | | +--------+ + + + [...] Telephone Encounter - Cecille Brunner RN - 11/19/2019 12:22 PM PSTMo Crowe MD: Filgrastim 3 00 mcg daily x3 days d/t neutropenia. Medication ordered. Working to clear urgent PA. Called Donell and updated him. Donell also requests all med[facility] w/ pharmacist Jc who is working on filling all Rxs thru [facility]. [address] . [place], [place] [id number] signed by Cecille Brunner RN at 11/19/2019 1:13 PM Ced ented in this encounter Plan of Treatment +--------+ + + + + | Date | Type | Specialty | Care Team | Description | +--------+ + + + + | 08/08/ | Telephone-S | Nephrology | Angélica Chao, | | | 2019 | [place] | | [address] | | | | | | [address] | | | | | | [place], [place] | | | | | | [address] | | | | | | [phone] | | | | | | | | +--------+ + + + + | 09/27/ | Telephone-S | Liver Transplant | Vimal Crowe MD | | 2019 | [place] | | [address] | | | | | | [address], | | | | | | [place] [address] | | | | | | [phone] | | | | | | | | +--------+ + + + + | 10/03/ | Appointment | Cardiology | | | | 2019 | | | | | +--------+ + + + + | 10/03/ | Office | Cardiology | Cyril Samuel | | | 2019 | Visit | | MD Patricia [address] | | | | | | [address] | | | | | | [place] | | | | | | [address] | | | | | | [phone] | | | | | | | | +--------+ + + + + documented as of this encounter Visit Diagnoses Not on filedocumented in this encounter"
--- OUTSIDE RECORDS SUMMARY | ~2020-07-29 | XMS | Encounter Summary ---
Demographics + + + | Address | [address] | | | [place] [address] | + + + | Home Phone [...] [place] | | | | | [address] | | + + + + + Care Team Providers + +------+ + | Care Assembler Body Name | Role | Phone | + +------+ + | Sharon David MD | PCP | | + +------+ + Encounter Details +--------+ + + + + | Date | Type | Department | Care Team | Description | +--------+ + + + + | 04/15/ | MyChart | Digestive Health | Vimal Crowe MD | RE: Donell Duran | | 2019 | Encounter | [facility] [address] | [address] | | | | | [address] | [address] [place], | | | | | [facility] and | [place] [address] | | | | | Healing, [address] | [phone] | | | | | [place], [place] | | | | | | [address] | | | | | | [phone] | | | +--------+ + + + [...] | | 2019 | [place] | | [address] | | | | | | [address] | | | | | | [place], [place] | | | | | | [address] | | | | | | [phone] | | | | | | | | +--------+ + + + + | 09/27/ | Telephone-S | Liver Transplant | Vimal Crowe MD | | | 2019 | [place] | | [address] | | | | | | [facility] [address] [place], | | | | | | [place] [address] | | | | | | [phone] | | | | | | | [...] [address] | | | | | | [place] | | | | | | [address] | | | | | | [phone] | | | | | | | | +--------+ + + + + documented as of this encounter Visit Diagnoses Not on filedocumented in this encounter"
--- OUTSIDE RECORDS SUMMARY | ~2020-07-29 | XMS | Encounter Summary ---
Demographics + + + | Address | [address] | | | [place] [address] | + + + | Home Phone [...] [place] | | | | | [address] | | + + + + + Care Team Providers + +------+ + | Care Supervisor Decorating Name | Role | Phone | + +------+ + | Sharon David MD | PCP | | + +------+ + Encounter Details +--------+ + + + + | Date | Type | Department | Care Team | Description | +--------+ + + + + | 06/23/ | Pharmacy | [facility] | | | | 2020 | Visit | [address] | [address] | | | | | | [place] [address] | | | | | | [phone] | | | +--------+ + + + [...] Rd | | | | | | [place], [place] | | | | | | [address] | | | | | | [phone] | | | | | | | | +--------+ + + + + | 09/27/ | Telephone-S | Liver Transplant | Vimal Crowe MD | | | 2019 | [place] | | [address] | | | | | | [address], | | | | | | [place] [address] | | | | | | [phone] | | | | | | | [...] Rd | | | | | | [place] | | | | | | [address] | | | | | | [phone] | | | | | | | | +--------+ + + + + documented as of this encounter Visit Diagnoses Not on filedocumented in this encounter"
--- OUTSIDE RECORDS SUMMARY | ~2020-07-29 | XMS | Encounter Summary ---
Demographics + + + | Address | [address] | | | [place] [address] | + + + | Home Phone [...] [place] | | | | | [address] | | + + + + + Care Team Providers + +------+ + | Care Floor Attendant Name | Role | Phone | + +------+ + | Sharon David MD | PCP | | + +------+ + Encounter Details +--------+ + + + + | Date | Type | Department | Care Team | Description | +--------+ + + + + | 09/19/ | Pharmacy | [facility] | | | | 2018 | Visit | [facility] | | | | | | [address] | | | | | | [address] [place], [place] | | | | | | [address] | | | | | | [phone] | | | +--------+ + + + [...] Rd | | | | | | [place], [place] | | | | | | [address] | | | | | | [phone] | | | | | | | | +--------+ + + + + | 09/27/ | Telephone-S | Liver Transplant | Vimal Crowe MD | | | 2019 | [place] | | [address] | | | | | | [facility] [place], | | | | | | [place] [address] | | | | | | [phone] | | | | | | | [...] Rd | | | | | | [place], [place] | | | | | | [address] | | | | | | [phone] | | | | | | | | +--------+ + + + + documented as of this encounter Visit Diagnoses Not on filedocumented in this encounter"
--- OUTSIDE RECORDS SUMMARY | ~2020-07-29 | XMS | Encounter Summary ---
Demographics + + + | Address | [address] | | | [place] [address] | + + + | Home Phone [...] [place] | | | | | [address] | | + + + + + Care Team Providers + +------+ + | Care Metrology Engineer Name | Role | Phone | [...] [facility] | DO [address] | Transplant | | | | [address] | [facility] | | | | | Loop Physician's | [place], [place] | | | | | [place], [facility] floor | [address] | | | | | [place], [place] | [phone] | | | | | [address] | | | | | | [phone] | | | +--------+ + + + [...] | | 2020 | [place] | | [address] | | | | | | [address] | | | | | | [place], [place] | | | | | | [address] | | | | | | [phone] | | | | | | | | +--------+ + + + + | 09/27/ | Telephone-S | Liver Transplant | Vimal Crowe MD | | | 2019 | [place] | | [address] | | | | | | [address], | | | | | | [place] [address] | | | | | | [phone] | | | | | | | | +--------+ + + + + | 10/03/ | Appointment | Cardiology | | | | 2019 | | | | | +--------+ + + + + | 10/03/ | Office | Cardiology | Cyril Samuel | | | 2019 | Visit | | MD Patricia [address] [facility] | | | | | | [address] | | | | | | [place], [place] | | | | | | [address] | | | | | | [phone] | | | | | | | | +--------+ + + + + documented as of this encounter Visit Diagnoses Not on filedocumented in this encounter"
--- OUTSIDE RECORDS SUMMARY | ~2020-07-29 | XMS | Encounter Summary ---
Demographics + + + | Address | [address] | | | [place] [address] | + + + | Home Phone [...] [place] | | | | | [address] | | + + + + + Care Team Providers + +------+ + | Care Chopper Operator Name | Role | Phone | + +------+ + | Sharon David MD | PCP | | + +------+ + Encounter Details +--------+ + + + + | Date | Type | Department | Care Team | Description | +--------+ + + + + | 12/11/ | Pharmacy | [facility] | | | | 2020 | Visit | [address] | | | | | | [address] | | | | | | [place] [address] | | | | | | [phone] | | | +--------+ + + + [...] Rd | | | | | | [place], [place] | | | | | | [address] | | | | | | [phone] | | | | | | | | +--------+ + + + + | 09/27/ | Telephone-S | Liver Transplant | Vimal Crowe MD | | | 2019 | cheduled | | [address] | | | | | | [address], | | | | | | [place] [address] | | | | | | [phone] | | | | | | | [...] Rd | | | | | | [place] | | | | | | [address] | | | | | | [phone] | | | | | | | | +--------+ + + + + documented as of this encounter Visit Diagnoses Not on filedocumented in this encounter"
--- OUTSIDE RECORDS SUMMARY | ~2020-07-29 | XMS | Encounter Summary ---
Demographics + + + | Address | [address] | | | [place] [address] | + + + | Home Phone [...] [place] | | | | | [address] | | + + + + + Care Team Providers + +------+ + | Care Management Manager Name | Role | Phone | + +------+ + | Sharon David MD | PCP | | + +------+ + Encounter Details +--------+ + + + + | Date | Type | Department | Care Team | Description | +--------+ + + + + | 05/19/ | Pharmacy | Outpatient Retail | | | | 2019 | Visit | [facility] | | | | | | [address] | | | | | | [address] [place], [place] | | | | | | [address] | | | | | | [phone] | | | +--------+ + + + [...] Rd | | | | | | [place], [place] | | | | | | [address] | | | | | | [phone] | | | | | | | | +--------+ + + + + | 09/27/ | Telephone-S | Liver Transplant | Vimal Crowe MD | | | 2019 | cheduled | | [address] | | | | | | [place], | | | | | | [place] [address] | | | | | | [phone] | | | | | | | [...] Rd | | | | | | [place], [place] | | | | | | [address] | | | | | | [phone] | | | | | | | | +--------+ + + + + documented as of this encounter Visit Diagnoses Not on filedocumented in this encounter"
--- OUTSIDE RECORDS SUMMARY | ~2020-07-29 | XMS | Encounter Summary ---
Demographics + + + | Address | [address] | | | [place] [address] | + + + | Home Phone [...] [place] | | | | | [address] | | + + + + + Care Team Providers + +------+ + | Care Receiving Supervisor Name | Role | Phone | + +------+ + | Sharon David MD | PCP | | + +------+ + Encounter Details +--------+ + + + + | Date | Type | Department | Care Team | Description | +--------+ + + + + | 07/14/ | Pharmacy | [facility] | | | | 2020 | Visit | [address] | | | | | | Place [address] | | | | | | [place] [address] | | | | | | [phone] | | | +--------+ + + + [...] Rd | | | | | | [place], [place] | | | | | | [address] | | | | | | [phone] | | | | | | | | +--------+ + + + + | 09/27/ | Telephone-S | Liver Transplant | Vimal Crowe MD | | | 2019 | cheduled | | [address] | | | | | | [address], | | | | | | [place] [address] | | | | | | [phone] | | | | | | | [...] Rd | | | | | | [place] | | | | | | [address] | | | | | | [phone] | | | | | | | | +--------+ + + + + documented as of this encounter Visit Diagnoses Not on filedocumented in this encounter"
--- OUTSIDE RECORDS SUMMARY | ~2020-07-29 | XMS | Encounter Summary ---
Demographics + + + | Address | [address] | | | [place] [address] | + + + | Home Phone [...] [place] | | | | | [address] | | + + + + + Care Team Providers + +------+ + | Care Granite Installer Name | Role | Phone | [...] Pavilion, | | | | | | [place], | 3rd floor | | | | | | [place] [address] | [place], [place] | | | | | | Phone: | [address] | | | | | | [phone] | Phone: | | | | | | Fax: | [phone] | | | | | | [phone] | Fax: | | | | | | | [phone] | +--------+--------+ + + + + Encounter Details +--------+---------+ + + + | Date | Type | Department | Care Team | Description | +--------+---------+ + + + | 09/15/ | Office | Nephrology & | Angélica Chao, | KAR (acute kidney | | 2019 | Visit | Hypertension at [facility] | [address] | injury) (HCC) | | | | [address] | [address] | (Primary Dx); | | | | Loop Physician's | [place], [place] | Generalized edema; | | | | Pavilion, 3rd floor | [address] | Hyperkalemia; | | | | [place], [place] | [phone] | Anemia, unspecified | | | | [address] | | type | | | | [phone] | | | +--------+---------+ + + + [...] + + + | Blood Pressure | 148/84 | 09/15/2019 1:22 PM | | | | | PST | | + + + + + | Pulse | 78 | 09/15/2019 1:22 PM | | | | | PST | | + + + + + | Temperature | 36.6 C (97.9 F) | 09/15/2019 1:22 PM | | | | | PST | | + + + + + | Respiratory Rate | 16 | 09/15/2019 1:22 PM | | | | | PST | | + + + + + | Oxygen Saturation | 99% | 09/15/2019 1:22 PM | | | | | PST | | + + + + + | Inhaled Oxygen | - | - | | | Concentration | | | | + + + + + | Weight | 97.1 kg (214 lb 1.1 | 09/15/2019 1:22 PM | | | | oz) | PST | | + + + + + | Height | - | - | | + + + + + | Body Mass Index | 29.86 | 09/11/2019 9:26 AM | | | [...] Instructions Patient Instructions Angélica Chao MD - 09/15/2019 1:30 PM PST 1. If your next potassium level is high, we may need to limit the potassium in your diet. P lelinda do avoid large servings of potatoes and sweet potatoes. 2. I will refer you to [facility] - this is the injection to help you make red blood ce lls. I expect they'll call you early next week. 3. Let's start furosemide 40 mg daily. If you lose more than 3 pounds a day, that's a littl e fast, let me know. You can also watch for dizziness or light-headedness - those can be sig ns that we are removing fluid too fast. If you don't notice an increase in urine output afte r 1-2 days, please call. 4. Continue your frequent labs - this will help us keep an eye on your kidney function whil e we're using the diuretic. 5. I can see you back in October. My office will call you to schedule. Potassium and Your CKD Diet (CKD stands for chronic kidney disease ) What is potassium and why is it important to you? Potassium is a mineral found in many of the foods you eat. It plays a role in keeping your heartbeat regular and your muscles working right. It is the job of healthy kidneys to keep t he right amount of potassium in your body. However, when your kidneys are not healthy, you o ften need to limit certain foods that can increase the potassium in your blood to a dangerou s level. You may feel some weakness, numbness and tingling if your potassium is at a high le garett. If your potassium becomes too high, it can cause an irregular heartbeat or a heart carlos ck. What is a safe level of potassium in my blood? Ask your doctor or dietitian about your monthly blood potassium level and enter it here: If it is 3.5-5.0 You are in the SAFE zone If it is 5.1-6.0 You are in the CAUTION zone If it is higher than 6.0 ..You are in the DANGER zone How can I keep my potassium level from getting too high? You should limit foods that are high in potassium. Your renal dietitian will help you plan your diet so you are getting the right amount of potassium. Eat a variety of foods but in moderation. If you want to include some high potassium vegetable in your diet, rivera them before using. Leaching is a process by which some potassium can be pulled out of the vegetable. Instructi ons for leaching selected high potassium vegetables can be found at the end of this fact she et. Check with your dietitian on the amount of leached high potassium vegetables that can be safely included in your diet. Do not drink or use the liquid from canned fruits and vegetables, or the juices from cooked meat. Remember that almost all foods have some potassium. The size of the serving is very importa nt. A large amount of a low potassium food can turn into a high- potassium food. If you are on dialysis, be sure to get all the treatment or exchanges prescribed to you. What foods are high in potassium (greater than 200 milligrams per portion)? The following table lists foods that are high in potassium. The portion size is cup unle ss otherwise stated. Please be sure to check portion sizes. While all the foods on this list are high in potassium, some are higher than others. High-Potassium Foods Fruits Vegetables Other Foods Apricot , raw (2 medium) dried (5 halves) [place] Squash Bran/Bran products Avocado ( whole) Artichoke Chocolate (1.5-2 ounces) Banana ( whole) Bamboo Shoots Granola Cantaloupe Baked Beans Milk, all types (1 cup) Dates (5 whole) [place] Squash Molasses (1 Tablespoon) Dried fruits Refried Beans Nutritional Supplements: Use only under the direction of your doctor or dietitian. Figs, dried Beets, fresh then boiled Grapefruit Juice Black Beans Honeydew Broccoli, cooked Nuts and Seeds (1 ounce) Kiwi (1 medium) [place] Sprouts Peanut Butter (2 tbs.) [place](1 medium) Arabic Cabbage Salt Substitutes/Lite Salt Nectarine(1 medium) Carrots, raw Salt Free Broth [place]he(1 medium) Dried Beans and Peas Yogurt [place]he Juice Greens, except Kale Snuff/Chewing Tobacco Papaya ( whole) [place] Squash Pomegranate (1 whole) Kohlrabi Pomegranate Juice Lentils Prunes Legumes Prune Juice Mushrooms, canned Raisins Parsnips Potatoes, white and sweet Pumpkin Rutabagas Spinach, cooked Tomatoes/Tomato products Vegetable Juices What foods are low in potassium? The following table list foods which are low in potassium. A portion is cup unless other vincent noted. Eating more than 1 portion can make a lower potassium food into a higher potassi um food. Low-Potassium Foods Fruits Vegetables Other Foods Apple (1 medium) [place] sprouts Rice Apple Juice Asparagus (6 ortiz) Noodles Applesauce Beans, green or wax Pasta Apricots, canned in juice Cabbage, green and red Carrots, cooked Bread and bread products: (Not Whole Grains) Blackberries Cauliflower Cake: bart, yellow Blueberries Celery (1 stalk) Coffee: limit to 8 ounces Cherries [place], fresh ( ear) frozen ( cup) Pies without chocolate or high potassium fr uit Cranberries [place] Cookies without nuts or chocolate Fruit Cocktail Eggplant Tea: limit to 16 ounces Grapes Kale Grape Juice Lettuce Grapefruit ( whole) Mixed Vegetables Mandarin Oranges Mushrooms, fresh Peaches, fresh (1 small) canned ( cup) Okra Pears, fresh (1 small) canned ( cup) Onions Pineapple Parsley Pineapple Juice Peas, green Plums (1 whole) Peppers Raspberries Radish Strawberries Rhubarb [place] (1 whole) Water Chestnuts, canned Watermelon(limit to 1 cup) Watercress Yellow Squash Zucchini Squash How do I get some of the potassium out of my favorite high-potassium vegetables ? The process of leaching will help pull potassium out of some high-potassium vegetables. It is important to remember that leaching will not pull all of the potassium out of the vegetab le. You must still limit the amount of leached high-potassium vegetables you eat. Ask your d ietitian about the amount of leached vegetables that you can safely have in your diet. How to rivera vegetables. For Potatoes, Sweet Potatoes, Carrots, Beets, and Rutabagas: 1. Peel and place the vegetable in cold water so they won t darken. 2. Slice vegetable 1/8 inch thick. 3. Rinse in warm water for a few seconds. 4. Soak for a minimum of two hours in warm water. Use ten times the amount of water to the amount of vegetables. If soaking longer, change the water every four hours. 5. Rinse under warm water again for a few seconds. 6. aviation mechanic with five times the amount of water to the amount of vegetable. For Squash, Mushrooms, Cauliflower, and Frozen Greens: 1. Allow frozen vegetable to thaw to room temperature and drain. 2. Rinse fresh or frozen vegetables in warm water for a few seconds. 3. Soak for a minimum of two hours in warm water. Use ten times the amount of water to the amount of vegetables. If soaking longer, change the water every four hours. 4. Rinse under warm water again for a few seconds. 5. Cook the usual way, but with five times the amount of water to the amount of vegetable. 6. documented in this encounter Progress Notes Angélica Chao MD - 09/15/2019 1:30 PM PSTFormatting of this note might be different fr om the original. Date of service: 09/15/2019 8:38 AM Reason for visit: F/u KAR ASSESSMENT: Mr. Duran is a 54 yo gentleman with hx ESLD now s/p OLT Jul 2019, with kar requ iring dialysis clara-op who presents for follow up of kar. KAR was felt to be multifactorial (hemodynamic - HRS +/- ATN and then potentially exacerbated by tacrolimus and bactrim). He w as on dialysis 08/22-09/01. On 09/01 during first (and only) dialysis at outpatient unit, he developed pruritic hives on both forearms shortly after starting dialysis. He has received o nly heparin at that time. He was using the same dialyzer (revaclear 300) that he had used tw ice in hospital. He had been receiving heparin for TDC locking while in hospital. Dialysis w as stopped, TDC packed with citrate. On follow up labs on 09/03, creatinine continued to be <2 so dialysis was discontinued. Creatinine over past 2 weeks has remained 1.6-1.8. Unclear if his creatinine will cont to improve - it may - but anticipate he will be left with at le ast some degree of CKD secondary to this kar event. A significant issue for him clara-op has been profound peripheral edema. He continues to hav e robust uop (~3 L daily) and drinking less than that (~2L/d by his estimation) and severe p eripheral edema is improving but is still "painful." He also has persistent, slowly improvin g, anemia postop. PLAN: -KAR: improved and off dialysis. TDC removal scheduled for today with IR - help from IR for expedited TDC removal is greatly appreciated. He has labs ~2ce a week for post OLT care, so will cont to monitor creatinine closely. Now on daily SS bactrim. If K remains high and/or creatinine trends back up, would strongly consider alternative PJP prophylaxis. -Edema/HTN: BP a touch high but not unreasonable today. Peripheral edema improving, but slo wly, and still uncomfortable. He has robust UOP as-is, but not unreasonable to add diuretic for a few days to help improve discomfort; this should also help with potassium control. I d on't anticipate he will require this long-term, although ongoing need will likely depend on where his renal function settles out. Start lasix 40 mg daily. He has repeat labs later this week. If BUN or creatinine trend up (creatinine >2, BUN >40), then would stop furosemide. P t believes he has furosemide at home, but gave ppr Rx today just in case. -HyperK: likely due to combination of current level of renal function and bactrim use. Anti cipate some improvement with furosemide, as above. Discussed using care with potato and swee t potato intake this week (given Thanksgiving holiday). Provided handout on low K diet which includes instructions on how to remove some potassium from potatoes. Recheck of K with labs later this week. -Anemia: slowly improving but Hgb remains below goal. Iron stores replete within past 90 da ys. Reasonable to start aranesp - hopeful his need for this will be short-term. Pt agreeable to this and understands he will need to come in to infusion clinic to have this done. Will place referral today. F/u: 2 mo (Oct 2019 in limited [facility] clinic) Angélica Chao MD [facility] Division of Nephrology and Hypertension Office tel: [phone] I spent 25 minutes with this patient today, >50% of [...] Aug 2019) -s/p OLT Aug 16, 2019 ([facility]) 2. KAR -multifactorial around time of OLT (hemodynamic/HRS, bactrim, tacrolimus) -HD initiated 08/22/19 for azotemia, hypervolemia; stopped after 09/01/19 with e/o renal rec overy 3. Malnutrition 4. SVT/Afib 5. Elevated CBGs 2/2 medications -on insulin post OLT Pre-clinic chart review (from outside/internal medical record review): [facility]. Creatinine improved to 1.6-1.8 over past ~10 days. K high 4's-low 5's. Scheduled fo r TDC removal today. S: Doing well - feeling great. He notes LE edema has been slowly improving and then improved quite a bit over the weekend - 11 lbs in past 5 days. Legs are feeling much more normal. He's urinating ~3 liters a day. No sob, mcintyre, orthopnea. He was told to increase Mg to bid by txp team yesterday. He does not take potassium supplem ents. Recently changed to bactrim SS daily (instead of DS MWF). Bps here have been 130-140/60-80s; checking at appts only. No dysuria hematuria. No urinary hesitancy. Rash from dialysis cleared up right away. HD catheter feeling okay. Covered. Not wet. No fevers, no chills. ROS: No CP, vomiting, diarrhea, rashes, vision changes. No consistent cough. Reviewed syst ems include constitutional, eyes, nose/throat, musculoskeletal, psych, cardiovascular, resp iratory, GI, , skin. Current Outpatient Medications Medication [...] day Indications: type 2 diabetes mellitus Insulin Rock (Disposable) (COMFORT EZ PEN NEEDLES) 31 gauge [...] facility-administered medications for this visit. O: Vitals: 09/15/19 1322 BP: 148/84 BP Location: Right upper arm Patient Position: Sitting Pulse: 78 Resp: 16 Temp: 36.6 C (97.9 F) TempSrc: Oral SpO2: 99% Weight: 97.1 kg (214 lb 1.1 oz) PainSc: 05 - Moderate to Severe PainLoc: Foot (Bilateral) Gen: awake, alert, nad Eyes/mouth: PERRLA, anicteric sclera, moist oral mucosa CV: Heart sounds have regular rate and rhythm. Resp: Lungs are clear on auscultation bilaterally. No crackles bilat Abd: Bowel sounds are positive, abd binder in place Arms/legs: diffuse, >5mm tough and mildly tender edema feet to lower thighs, no erythema or weeping Access: LIJ TDC - non-tender and no erythema, biopatch in place, but dressing is lifting up in some places Labs: Recent Labs 09/07/19 0857 09/10/19 0801 09/14/19 0815 NA 139 | 139 140 140 K 4.3 | 4.3 4.9 5.2* CL 106 | 106 106 108 BICARB 29 | 29 30 28 BUN 31* | 31* 31* 27* CR 1.68* | 1.68* 1.80* 1.82* GLU 63* | 63* 86 123* CA 8.6 | 8.6 8.7 8.9 AST 7 10 14 ALT 17 19 17 AP 50* 49* 55 TBILI 0.8 0.7 0.6 TP 6.0* 6.1* 6.5 ALB 3.7 | 3.7 3.7 3.8 Lab Results Component Value Date PO4 4.6 09/14/2019 Lab Results Component Value Date MG 1.5 09/14/2019 Lab Results Component Value Date SATTRANSFERR 82 (H) 08/15/2019 SATTRANSFERR 105 (H) 04/21/2019 SATTRANSFERR 92 (H) 03/19/2019 Lab Results Component Value Date FERRITIN 3,007 (H) 08/15/2019 Recent Labs 09/07/19 0857 09/10/19 0801 09/14/19 0815 WBC 4.57 4.57 3.69 RBC 2.59* 2.48* 2.74* HB 8.3* 7.7* 8.4* HCT 26.1* 24.9* 27.3* PLT 138* 127* 127* NEUTROPERC 70.6* 70.6* 68.5 LYMPHPERC 19.9 20.6 20.9 MONOPERC 6.8 6.6 6.8 BASOPERC 1.3 0.9 0.8 EOSPERC 0.7* 1.1 2.2 Please see A/P at top of this [...] Rd | | | | | | [place], [place] | | | | | | [address] | | | | | | [phone] | | | | | | | | +--------+ + + + + | 09/27/ | Telephone-S | Liver Transplant | Vimal Crowe MD | | | 2019 | cheduled | | [address] | | | | | | [address], | | | | | | [place] [address] | | | | | | [phone] | | | | | | | [...] Rd | | | | | | [place], [place] | | | | | | [address] | | | | | | [phone] | | | | | | | | +--------+ + + + + documented as of this encounter Visit Diagnoses + + | Diagnosis | + + | KAR (acute kidney injury) (HCC) - Primary Acute kidney failure, unspecified | + + | Generalized edema Edema | + + | Hyperkalemia Hyperpotassemia | + + | Anemia, unspecified type | + + documented in this encounter
--- OUTSIDE RECORDS SUMMARY | ~2020-07-29 | XMS | Encounter Summary ---
Demographics + + + | Address | [address] | | | [place] [address] [...] [place] | | | | | [address] | | + + + + + Care Team Providers + +------+ + | Care Building Construction Teacher Name | Role | Phone | + +------+ + | Sharon David MD | PCP | | + +------+ + Encounter Details +--------+ + + + + | Date | Type | Department | Care Team | Description | +--------+ + + + + | 02/21/ | Pharmacy | [facility] | | | | 2020 | Visit | [address] | | | | | | [address] | | | | | | [place] [address] | | | | | | [phone] | | | +--------+ + + + [...] Rd | | | | | | [place], [place] | | | | | | [address] | | | | | | [phone] | | | | | | | | +--------+ + + + + | 09/27/ | Telephone-S | Liver Transplant | Vimal Crowe MD | | | 2019 | cheduled | | [address] | | | | | | [address], | | | | | | [place] [address] | | | | | | [phone] | | | | | | | [...] Rd | | | | | | [place] | | | | | | [address] | | | | | | [phone] | | | | | | | | +--------+ + + + + documented as of this encounter Visit Diagnoses Not on filedocumented in this encounter"
--- OUTSIDE RECORDS SUMMARY | ~2020-07-29 | XMS | Encounter Summary ---
Demographics + + + | Address | [address] | | | [place] [address] | + + + | Home Phone [...] [place] | | | | | [address] | | + + + + + Care Team Providers + +------+ + | Care Binder Coverstitch Name | Role | Phone | + +------+ + | Sharon David MD | PCP | | + +------+ + Encounter Details +--------+ + + + + | Date | Type | Department | Care Team | Description | +--------+ + + + + | 05/12/ | Pharmacy | Outpatient Retail | | | | 2019 | Visit | [facility] | | | | | | [address] | | | | | | [address] [place], [place] | | | | | | [address] | | | | | | [phone] | | | +--------+ + + + [...] [place] | | | | | | [address] | | | | | | [phone] | | | | | | | | +--------+ + + + + | 09/27/ | Telephone-S | Liver Transplant | Vimal Crowe MD | | | 2019 | cheduled | | [address] | | | | | | [facility] [place], | | | | | | [place] [address] | | | | | | [phone] | | | | | | | [...] Rd | | | | | | [place], [place] | | | | | | [address] | | | | | | [phone] | | | | | | | | +--------+ + + + + documented as of this encounter Visit Diagnoses Not on filedocumented in this encounter"
--- OUTSIDE RECORDS SUMMARY | ~2020-07-29 | XMS | Encounter Summary ---
Demographics + + + | Address | [address] | | | [place] [address] | + + + | Home Phone [...] [place] | | | | | [address] | | + + + + + Care Team Providers + +------+ + | Care Molder Name | Role | Phone | + +------+ + | Sharon David MD | PCP | | + +------+ + Encounter Details +--------+ + + + + | Date | Type | Department | Care Team | Description | +--------+ + + + + | 06/30/ | Pharmacy | [facility] | | | | 2020 | Visit | [address] | | | | | | [address] | | | | | | [place] [address] | | | | | | [phone] | | | +--------+ + + + [...] Rd | | | | | | [place], [place] | | | | | | [address] | | | | | | [phone] | | | | | | | | +--------+ + + + + | 09/27/ | Telephone-S | Liver Transplant | Vimal Crowe MD | | | 2019 | cheduled | | [address] | | | | | | [address], | | | | | | [place] [address] | | | | | | [phone] | | | | | | | [...] Rd | | | | | | [place] | | | | | | [address] | | | | | | [phone] | | | | | | | | +--------+ + + + + documented as of this encounter Visit Diagnoses Not on filedocumented in this encounter"
--- OUTSIDE RECORDS SUMMARY | ~2020-07-29 | XMS | Encounter Summary ---
Demographics + + + | Address | [address] | | | [place] [address] | + + + | Home Phone [...] [place] | | | | | [address] | | + + + + + Care Team Providers + +------+ + | Care Consulting Solution Manager Name | Role | Phone | + +------+ + | Sharon David MD | PCP | | + +------+ + Encounter Details +--------+--------+ + + + | Date | Type | Department | Care Team | Description | +--------+--------+ + + + | 11/09/ | Travel | | | | | [...] Rd | | | | | | [place], [place] | | | | | | [address] | | | | | | [phone] | | | | | | | | +--------+ + + + + | 09/27/ | Telephone-S | Liver Transplant | Vimal Crowe MD | | | 2019 | [place] | | [address] | | | | | | [address], | | | | | | [place] [address] | | | | | | [phone] | | | | | | | [...] [place] | | | | | | [address] | | | | | | [phone] | | | | | | | | +--------+ + + + + documented as of this encounter Visit Diagnoses Not on filedocumented in this encounter"
--- OUTSIDE RECORDS SUMMARY | ~2020-07-29 | XMS | Encounter Summary ---
Demographics + + + | Address | [address] | | | [place] [address] | + + + | Home Phone [...] [place] | | | | | [address] | | + + + + + Care Team Providers + +------+ + | Care Geotechnical Operating Engineer Name | Role | Phone | + +------+ + | Sharon David MD | PCP | | + +------+ + Encounter Details +--------+ + + + + | Date | Type | Department | Care Team | Description | +--------+ + + + + | 01/18/ | Abstract | Clinical | Vimal Crowe MD | | | 2019 | | Transplant Services | [address] | | | | | [address] | [address] [place], | | | | | [place], | [place] [address] | | | | | [place] [address] | [phone] | | | | | [phone] | | | +--------+ + + + [...] Rd | | | | | | [place], [place] | | | | | | [address] | | | | | | [phone] | | | | | | | | +--------+ + + + + | 09/27/ | Telephone-S | Liver Transplant | Vimal Crowe MD | | | 2019 | [place] | | [address] | | | | | | [facility] [place], | | | | | | [place] [address] | | | | | | [phone] | | | | | | | | +--------+ + + + + | 10/03/ | Appointment | Cardiology | | | | 2019 | | | | | +--------+ + + + + | 10/03/ | Office | Cardiology | Cyril Samuel | | | 2019 | Visit | Darren Gomez MD [address] | | | | | | [address] | | | | | | [place], [place] | | | | | | [address] | | | | | | [phone] | | | | | | | | +--------+ + + + + documented as of this encounter Procedures + +--------+ + + + | Procedure Name | Priori | Date/Time | Associated Diagnosis | Comments | | | ty | | | | + +--------+ + + + | LIVER TRANSPLANT | Routin | 01/18/2020 | | Results for this | | POST PANEL (EXT | e | 7:50 AM | | procedure are in the | | RESULTS) | | PDT | | results section. | + +--------+ + + + documented in this encounter Results LIVER TRANSPLANT POST PANEL (EXT RESULTS) (01/18/2020 7:50 AM PDT) + + + + + [...] + + + | CHLORIDE, | 95 | mmol/L | [facility] | | | [...] + + + + | GLUCOSE, | 186 (A) | 65 - 110 mg/dL | [...] + + | AST(SGOT) | 13 | U/L | [facility] | [...] + + + | URIC ACID, | 7.7 | mg/dL | [facility] | | | PLASMA | | | LAB - | | | (LAB) | | | [place] | | + + + + + + | WHITE CELL | 6.4 | K/cu mm | [facility] | | | COUNT | | | LAB - | | | | | | [place] | | + + + + + + | HEMATOCRIT | 35.5 | % | [facility] | | | | | | LAB - | | | | | | [place] | | + + + + + + | HEMOGLOBIN | 12.1 (A) | 13.5 - 17.5 | [facility] [...] + + + + | TACROLIMUS | 9.6 | ng/mL | [facility] | | | [...] [address] | [place] | [phone] | | [place] | | | | + + + + + documented in this encounter Visit Diagnoses Not on filedocumented in this encounter"
--- OUTSIDE RECORDS SUMMARY | ~2020-07-29 | XMS | Encounter Summary ---
Demographics + + + | Address | [address] | | | [place] [address] | + + + | Home Phone [...] [place] | | | | | [address] | | + + + + + Care Team Providers + +------+ + | Care Social Media Editor Name | Role | Phone | + +------+ + | Sharon David MD | PCP | | + +------+ + Reason for Visit + +--------+ + | Reason | Onset | Comments | | | Date | | + +--------+ + | Medication Question | 09/19/ | | | | 2018 | | + +--------+ + Encounter Details +--------+ + + + + | Date | Type | Department | Care Team | Description | +--------+ + + + + | 09/19/ | Telephone | Clinical | Porsche Perdomo, | Medication Question | | 2019 | | Transplant Services | RN [address] | | | | | [address] | [address] [place] | | | | | [place], | [place], [place] | | | | | [place] [address] | [address] | | | | | [phone] | | | +--------+ + + + [...] Telephone Encounter - Porsche Perdomo RN - 09/19/2019 11:43 AM PSTToruben's mom Priyanka called t o report that Donell forgot to take his evening medications yesterday, but he is back on track with his meds this morning. I reassured Priyanka that there is nothing to do just get back on t rack and to maybe set an alarm. I reiterated the importance of taking medications at the [facility] e times everyday to ensure a therapeutic level. Priyanka verbalizes understanding, all question s answered. documented in this encounter Plan of Treatment +--------+ + + + + | Date | Type | Specialty | Care Team | Description | +--------+ + + + + | 08/08/ | Telephone-S | Nephrology | Angélica Chao, | | | 2019 | [place] | | [address] | | | | | | [address] | | | | | | [place], [place] | | | | | | [address] | | | | | | [phone] | | | | | | | | +--------+ + + + + | 09/27/ | Telephone-S | Liver Transplant | Vimal Crowe MD | | | 2019 | cheduled | | [address] | | | | | | [address] | | | | | | [place] [address] | | | | | | [phone] | | | | | | | [...] Rd | | | | | | [place] | | | | | | [address] | | | | | | [phone] | | | | | | | | +--------+ + + + + documented as of this encounter Visit Diagnoses Not on filedocumented in this encounter"
--- OUTSIDE RECORDS SUMMARY | ~2020-07-29 | XMS | Encounter Summary ---
Demographics + + + | Address | [address] | | | [place] [address] | + + + | Home Phone [...] [place] | | | | | [address] | | + + + + + Care Team Providers + +------+ + | Care Home Health Attendant Name | Role | Phone | + +------+ + | Sharon David MD | PCP | | + +------+ + Reason for Visit Consultation (Routine) +--------+--------+ + + + + [...] | | | | | cirrhosis | [place], [place] | [id number] | | | | | type, | [address] | Physician's | | | | | unspecified | Phone: | Shyann William | | | | | whether | [phone] | 220 | | | | | ascites | Fax: | [place], [place] | | | | | present | [phone] | [address] | | | | | (HCC) | | Phone: | | | | | Pulmonary | | [phone] | | | | | hypertension | | Fax: | | | | | (HCC) | | [phone] | | | | | Procedures | | | | | | | CONSULT TO | | | | | | | CARDIOLOGY | | | +--------+--------+ + + + + Encounter Details +--------+---------+ + + + | Date | Type | Department | Care Team | Description | +--------+---------+ + + + | 03/18/ | Office | Cardiology General | Chasidy Guerra | Pulmonary | | 2019 | Visit | at [facility] [address] | [place] [address] | hypertension (HCC) | | | | [address] [facility] | [address] [facility], | (Primary Dx); | | | | Health and Healing, | [place] [address] | Pre-operative | | | | Building | [phone] | cardiovascular | | | | Floor [place], [place] | | examination; Chronic | | | | [address] | | right-sided heart | | | | [phone] | | failure (HCC); | | | | | | Tobacco use | +--------+---------+ + + + Social History [...] + + + | Blood Pressure | 114/52 | 03/18/2019 10:12 AM | | | | | PDT | | + + + + + | Pulse | 83 | 03/18/2019 10:12 AM | | | | | PDT | | + + + + + | Temperature | 36.6 C (97.8 F) | 03/18/2019 10:12 AM | | | | | PDT | | + + + + + | Respiratory Rate | - | - | | + + + + + | Oxygen Saturation | 100% | 03/18/2019 10:12 AM | | | | | PDT | | + + + + + | Inhaled Oxygen | - | - | | | Concentration | | | | + + + + + | Weight | 83.5 kg (184 lb) | 03/18/2019 10:12 AM | | | | | PDT | | + + + + + | Height | 177.8 cm (5' 10") | 03/18/2019 10:12 AM | | | | | PDT | | + + + + + | Body Mass Index | 26.4 | 03/18/2019 10:12 AM | | | | | PDT | | + + + + + documented in this encounter Patient Instructions Patient Instructions Chasidy Guerra PA-C - 03/18/2019 10:10 AM PDT1. Will have echo tomorrow and determine how your right heart function is doing now.[facility] - The Cardiac Non-Invasive Testing Clinic is located on the 2nd floor of [facility], room 2002. Ple ase check in at the helpdesk analyst. 2. Lab tomorrow after you see Dr. Crowe for heart failure. [facility] first floor documented in this encounter Progress Notes Chasidy Guerra PA-C - 03/18/2019 10:10 AM PDTADDENDUM 03/19/19: Mr. Duran had an ech ocardiogram today which showed normal right ventricular size and function with normal right ventricular systolic pressures. He was noted to have mild aortic stenosis which is likely th e cause of his murmur. His NT pro BNP was mildly elevated. He is at risk for heart failure post-operatively but can proceed with liver transplant evaluation with no indication for rig ht heart catheterization. CHASIDY GUERRA PA-C CARDIOLOGY GENERAL AT [facility] [address] Mailcode: [address] [id number] Maryam Edge PA-C - 03/18/2019 10:10 AM PDTFormatting of this note might be different from the or iginal. CARDIOLOGY ENCOUNTER NOTE Reason for Visit: This is a scheduled visit for cardiac evaluation and risk assessment. He is here with his s ister and mother. History: Per chart review: Steffen Duran is a 54 y.o. male with history of CKD, cir rhosis and pulmonary hypertension noted on echo 07/08 who is referred by Vimal Crowe MD for cardiac evaluation and risk assessment for liver transplant. Today, patient denies history of coronary artery disease; denies history of myocardial infa rction. Patient reports history of congestive heart failure. denies history of DVT/PE Patient reports improved LE edema. He denies palpitations, tachycardia, irregular heart b eat, chest pain, exertional chest pain or pressure, paroxysmal nocturnal dyspnea, hypertensi on. He was admitted at [facility] on 07/17/18 due to anemia due to cirrhosis with ascites and leg wounds. He had an echocardiogram done then which showed normal LV size and functio n with moderate RV dysfunction with moderate tricuspid regurgitation and moderate to severe pulmonary hypertension with RSVP of 62 mmHg. He was started on diuretics then. He was seen by nephrology and furosemide was increased to 40 mg twice daily, spironolactone 100 mg was c ontinued. He has been limiting his free water intake to less than 32 ounces and limiting hi s salt intake. He stopped drinking since that admission on 07/17/18. He chews tobacco. He denies smoking. 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 He denies any family history of CAD or sudden . History of Endocarditis or need for Endocarditis Prophylaxis? no Exercise History: Able to walk two flights of stairs and take care of his ranch and dogs. MET ASSESSMENT: 4 METS Past Medical, Family & Social Histories: Medical, Family & Social histories were reviewed and updated in EMR based on conversation w ith the patient, and noteable for the following: (Please see that section of the EMR for ful l details) - all reviewed with patient today. No past medical history on file. Current Outpatient Medications Medication Sig furosemide 40 mg oral tablet Take 1 tablet by mouth two times daily. lactulose 10 gram/15 mL oral solution Take 15 mL by mouth two times daily. spironolactone 100 mg oral tablet Take 100 mg by mouth once daily. No current facility-administered medications for this visit. Social History Tobacco Use Smoking status: Never Smoker Smokeless tobacco: Current User Types: Chew Substance Use Topics Alcohol use: No Review of Systems: Pertinent items are noted in HPI. Physical Exam: Vitals reviewed and noted as: BP 114/52 (BP Location: Left upper arm, Patient Position: Sitting) | Pulse 83 | Temp 36.6 C (97.8 F) (Oral) | Ht 1.778 m (5' 10") | Wt 83.5 kg (184 lb) | SpO2 100% | BMI 26. 40 kg/m | BSA 2.03 m Body mass index is 26.4 kg/m. Vital signs reviewed. General: comfortable, alert and cooperative, jaundiced HEENT: normal conjunctivae and icteric sclerae Neck: supple without restricted range of motion, no jugular venous distention , trachea mi dline and no carotid bruits Heart and Lung: chest is clear without rales or wheezing and respiratory effort is unlabor ed, S1, S2 normal, no S3 or S4, heart sounds notable for 2/6 systolic murmur at RSB, regular rate and rhythm , peripheral pulses brisk and trace + pedal edema present to mid shins; Abdomen/rectal: abdomen is soft and no tenderness, rebound tenderness or guarding; Extremities: extremities normal without deformity, no clubbing or cyanosis Neuro: normal gait and station and no tremor Psych: bright affect, not apparently anxious or depressed, judgment and insight appropriat e in context of visit and apparently normal recent and remote memory Laboratory/Diagnostics: Per chart review, reviewed today and summarized below: Lab Results Component Value Date HB 7.2 03/11/2019 HCT 19.6 03/11/2019 PLT 65 03/11/2019 BUN 57 03/11/2019 CR 1.75 03/11/2019 GLU 179 03/11/2019 ECG 03/18/2019 (My preliminary read based on review of tracing in clinic) -Sinus rhythm Outside records reviewed from [facility] (in media tab) Echo 07/18/18: 1. Overall left ventricular systolic function is normal with, an EF between 60 - 65 %. 2. Pseudonormal LV diastolic filling pattern, consistent with elevated LA pressure and mode rate dysfunction (Grade II). 3. Moderate tricuspid regurgitation present. 4. There is moderate to severe pulmonary hypertension. Cardiac Risk Stratification (based on 2014 ACC/AHA Guideline on Perioperative Cardiovascula r Evaluation and Management of Patients Undergoing Noncardiac Surgery): 1. Need for emergency noncardiac surgery? b. No -> Proceed to next step 2. MEDICAL DECISION MAKING: Are active cardiac conditions present? No Calculate the combined surgical and patient-specific risk: RCRI risk calculator (one point for each "yes" answer) A. Elevated risk surgery?: yes B. Ischemic heart disease: no C. Compensated / prior heart failure: yes, moderate-severe PHTN during decompensated liver disease D. Diabetes mellitus (treated with insulin): no E. Renal insufficiency (Cr>2): no F. Cerebrovascular disease: no Risk of MACE 0 risk factors - 0.4% 1 risk factor - 0.9% 2 risk factors - 6.6% 3 risk factors - 11% The risk of major adverse cardiac event (MACE) is: 6-7% (greater than 1%). Determine functional capacity: Functional capacity is > 4 METs. No further CAD risk strati fication is indicated. Surgery Specific Risk RCRI - (intraperitoneal; intrathoracic; suprainguinal vascular) 3. Good functional capacity? (>4 METS)a. Yes -> proceed with surgery DASI Online Calculator 4. If poor (< 4 METs) or unknown functional capacity, will further testing will impact pat ient decision making or perioperative care - yes Assessment/Plan:: Preoperative Evaluation: Steffen Duran is a 54 y.o. male with history of CKD, cirrhosis and pulmon david hypertension noted on echo 07/08 who is referred by Vimal Crowe MD for cardiac evaluati on and risk assessment for liver transplant.. he has 2 risk factor(s) undergoing High risk surgery, with an exercise tolerance of 4 METs with no symptoms of chest pain or shortness of breath which may be suggestive of ischemia. LVSF is normal. Per ACC/AHA guidelines, further risk stratification is indicated prior to surgery, as results may change perioperative argenis gement. Per Revised Cardiac Risk Index, predicted risk of perioperative cardiac morbidity/mo rtality is approximately 6-7%. Recommend repeating echocardiogram tomorrow since he is now e uvolemic with diuretics and obtain baseline NT pro BNP. If his RSVP is still elevated will refer for right heart catheterization. I will addend note when test results back to give final preoperative recommendations - Recommend patient continue all blood pressure medications perioperatively, as preventing significant increases in double product or cardiac workload is tamez in preventing perioperat prudence cardiac complications. I discussed the implications of the preoperative evaluation with the patient including risk stratification Patient verbalized understanding of plan of care and instructions as outline d. I personally discussed this case with Dr Goncalves and he agrees with the above assessment a nd plan. I will route note to him as well for review and attestation. A report of this preoperative evaluation will be sent to PCP Sharon David MD and referri yong provider/surgeon Vimal Crowe MD . CARDIOLOGY - PREVENTIVE [address] Mailcode: [id number] [facility] [address] documented in this encounter Plan of Treatment [...] Rd | | | | | | [place], [place] | | | | | | [address] | | | | | | [phone] | | | | | | | | +--------+ + + + + | 09/27/ | Telephone-S | Liver Transplant | Vmial Crowe MD | | | 2019 | [place] | | [address] | | | | | | [address], | | | | | | [place] [address] | | | | | | [phone] | | | | | | | | +--------+ + + + + | 10/03/ | Appointment | Cardiology | | | | 2019 | | | | | +--------+ + + + + | 10/03/ | Office | Cardiology | Cyril Samuel | | | 2019 | Visit | | MD Patricia [address] | | | | | | [address] | | | | | | [place], [place] | | | | | | [address] | | | | | | [phone] | | | | | | | [...] + + documented in this encounter Results NT-PRO BNP (03/19/2019 12:15 PM PDT) + [...] | + + + + + | [facility] | [address] | [place] [address] | | | SERVICES, CORE | [address] | | | + + + + + 12 LEAD ECG (03/18/2019 10:28 AM PDT) + + + + + + | Component | Value | Ref Range | Performed | Pathologist | | | | | At | Signature | + + + + + + | VENTR[facility]ULAR | 83 | bpm | [facility] | | | RATE | | [...] + + + + | [facility] | 465 | ms | [facility] [...] | [facility] | [address] | [place], [place] | | | CARDIOLOGY | [address] | [address] | | + + + + + documented in this encounter Visit Diagnoses + + | Diagnosis | + + | Pulmonary hypertension (HCC) - Primary Other chronic pulmonary heart diseases | + + | Pre-operative cardiovascular examination | + + | Chronic right-sided heart failure (HCC) Congestive heart failure, unspecified | + + | Tobacco use Tobacco use disorder | + + documented in this encounter
--- OUTSIDE RECORDS SUMMARY | ~2020-07-29 | XMS | Encounter Summary ---
Demographics + + + | Address | [address] | | | [place] [address] | + + + | Home Phone [...] Author + + + | Author | [facility] | + + + | Organization | [facility] | + + + | Address | Unknown | + + + | Phone | Unavailable | + + + Support + + + + + | Name | Relationship | Address | Phone | + + + + + | Doreen Manley | ECON | [address] | | | | | [place] | | | | | [address] | | + + + + + Care Team Providers + +------+ + | Care Conveyor Installer Name | Role | Phone | [address] | | | | | [address] | [facility] [place] | | | | | | [address] | | | | | | [phone] | | | | | | | [address] | | | | | | [place], [place] | | | | | | [address] | | | | | | [phone] | | | | | | | | +--------+ + + + + | 09/27/ | Telephone-S | Liver Transplant | Vimal Crowe MD | | | 2019 | [place] | | [address] | | | | | | [address], | | | | | | [place] [address] | | | | | | [phone] | | | | | | | [...] Rd | | | | | | [place], [place] | | | | | | [address] | | | | | | [phone] | | | | | | | [...] | | | | | | [place] [address] Patient | | | | | | [...] [address] | [place], [place] | [phone] | | [place] | | | | [...] Testing Performed at: [facility] [place] CLIA: [id number] - [address] | [facility] | | [place] [address] | - [place] | + + + + + + + + | Performing | Address | City/State/Zipcode | Phone Number | | Organization | | | | + + + + + | [facility] - | [address], [place] | [phone] | | [place] | | | | [...] Testing Performed at: [facility] CLIA: [id number] - [address] | [facility] | | [place] [address] | - [place] | + + + + + + + + | Performing | Address | City/State/Zipcode | Phone Number | | Organization | | | | + + + + + | [facility] - | [address], [place] | [phone] | | [place] | | | | [...] - | | | | | | [place] | | + + + + + [...] Testing Performed at: [facility] CLIA: [id number] - [address] | [facility] | | [place] [address] | - [place] | + + + + + + + + | Performing | Address | City/State/Zipcode | Phone Number | | Organization | | | | + + + + + | [facility] - | [address] | [phone] | | [place] | | | | + + + + + documented in this encounter Visit Diagnoses Not on filedocumented in this encounter"
--- OUTSIDE RECORDS SUMMARY | ~2020-07-29 | XMS | Encounter Summary ---
Demographics + + + | Address | [address] | | | [place] [address] | + + + | Home Phone [...] [place] | | | | | [address] | | + + + + + Care Team Providers + +------+ + | Care Furnace Combination Analyst Name | Role | Phone | + +------+ + | Sharon David MD | PCP | | + +------+ + Encounter Details +--------+ + + + + | Date | Type | Department | Care Team | Description | +--------+ + + + + | 07/20/ | Pharmacy | [facility] | | | | 2020 | Visit | [address] | | | | | [address] | | | | | | [place] [address] | | | | | | [phone] | | | +--------+ + + + [...] Rd | | | | | | [place], [place] | | | | | | [address] | | | | | | [phone] | | | | | | | | +--------+ + + + + | 09/27/ | Telephone-S | Liver Transplant | Vimal Crowe MD | | | 2019 | [place] | | [address] | | | | | | [address], | | | | | | [place] [address] | | | | | | [phone] | | | | | | | [...] Rd | | | | | | [place] | | | | | | [address] | | | | | | [phone] | | | | | | | | +--------+ + + + + documented as of this encounter Visit Diagnoses Not on filedocumented in this encounter"
--- OUTSIDE RECORDS SUMMARY | ~2020-07-29 | XMS | Encounter Summary ---
Demographics + + + | Address | [address] | | | [place] [address] | + + + | Home Phone [...] [place] | | | | | [address] | | + + + + + Care Team Providers + +------+ + | Care Rubber Tester Name | Role | Phone | + +------+ + | Sharon David MD | PCP | | + +------+ + Encounter Details +--------+ + + + + | Date | Type | Department | Care Team | Description | +--------+ + + + + | 02/05/ | Pharmacy | [facility] | | | | 2020 | Visit | [address] | | | | | | [address] | | | | | | [place] [address] | | | | | | [phone] | | | +--------+ + + + [...] [place] | | | | | | [address] | | | | | | [phone] | | | | | | | | +--------+ + + + + | 09/27/ | Telephone-S | Liver Transplant | Vimal Crowe MD | | | 2019 | cheduled | | [address] | | | | | | [address], | | | | | | [place] [address] | | | | | | [phone] | | | | | | | [...] Rd | | | | | | [place] | | | | | | [address] | | | | | | [phone] | | | | | | | | +--------+ + + + + documented as of this encounter Visit Diagnoses Not on filedocumented in this encounter"
--- OUTSIDE RECORDS SUMMARY | ~2020-07-29 | XMS | Encounter Summary ---
Demographics + + + | Address | [address] | | | [place] [address] | + + + | Home Phone | | + + + | Preferred Language | Unknown | + + + | Marital Status | Single | + + + | Congregational Affiliation | Unknown | + + + | Race | White | + + + | Ethnic Group | Not or | + + + Author + + + | Author | [facility] | | | and [place] | + + + | Organization | [facility] | | | and [place] | + + + | Address | Unknown | + + + | Phone | Unavailable | + + + Support + + +---------+ + | Name | Relationship | Address | Phone | + + +---------+ + | Kavya Malaveton | ECON | Unknown | | + + +---------+ + Care Team Providers + +------+ + | Care Residential Sales Manager Name | Role | Phone | + +------+ + PCP | Unavailable | + +------+ + Encounter Details +--------+ + + + + | Date | Type | Department | Care Team | Description | +--------+ + + + + | 08/02/ | Hospital | [facility] | Conversion | Thrombocytopenia | | 2018 | Encounter | [facility] | Transaction, | ([facility]); Macrocytic | | | | OUTPATIENT | Provider Unknown | anemia | | | | PROCEDURES [address] | [phone] | | | | | [address] | | | | | | [place], [place] | | | | | | [address] | | | | | | [phone] | | | +--------+ + + + [...] + + + | Blood Pressure | 154/70 | 08/02/2018 2:54 PM | | | | | PDT | | + + + + + | Pulse | 83 | 08/02/2018 2:54 PM | | | | | PDT | | + + + + + | Temperature | 37 C (98.6 F) | 08/02/2018 2:54 PM | | | | | PDT | | + + + + + | Respiratory Rate | 16 | 08/02/2018 2:54 PM | | | | | PDT [...] + + + documented in this encounter Medications at Time [...] [address] | | | | | | [place] [address] | | | | | | [phone] | | | | | | | | +--------+---------+ + + + documented as of this encounter Visit Diagnoses + + | Diagnosis | + + | Thrombocytopenia (HCC) Thrombocytopenia, unspecified | + + | Macrocytic anemia Unspecified deficiency anemia | + + documented in this encounter"
--- OUTSIDE RECORDS SUMMARY | ~2020-07-29 | XMS | Encounter Summary ---
Demographics + + + | Address | [address] | | | [place] [address] | + + + | Home Phone [...] [place] | | | | | [address] | | + + + + + Care Team Providers + +------+ + | Care Metal Drill Press Operator Name | Role | Phone | + +------+ + | Sharon David MD | PCP | | + +------+ + Encounter Details +--------+ + + + + | Date | Type | Department | Care Team | Description | +--------+ + + + + | 06/04/ | MyChart | Nephrology & | Angélica Chao, | lab results and | | 2020 | Encounter | Hypertension at | [address] | ultrasound | | | | [place] [address] [address] | | | | | [address] | [place], [place] | | | | | [place] [address] | [address] | | | | | [phone] | [phone] | | | | | | | [...] Rd | | | | | | [place], [place] | | | | | | [address] | | | | | | [phone] | | | | | | | | +--------+ + + + + | 09/27/ | Telephone-S | Liver Transplant | Vimal Crowe MD | | | 2019 | cheduled | | [address] | | | | | | [facility] [address] [place], | | | | | | [place] [address] | | | | | | [phone] | | | | | | | [...] | | | | | | [place], [place] | | | | | | [address] | | | | | | [phone] | | | | | | | | +--------+ + + + + documented as of this encounter Visit Diagnoses Not on filedocumented in this encounter"
--- OUTSIDE RECORDS SUMMARY | ~2020-07-29 | XMS | Encounter Summary ---
Demographics + + + | Address | [address] | | | [place] [address] | + + + | Home Phone [...] [place] | | | | | [address] | | + + + + + Care Team Providers + +------+ + | Care Hand Ii Thermal Cutter Name | Role | Phone | + +------+ + | Sharon David MD | PCP | | + +------+ + Encounter Details +--------+ + + + + | Date | Type | Department | Care Team | Description | +--------+ + + + + | 10/09/ | Pharmacy | Specialty Pharmacy | | | | 2019 | Visit | Services [address] | | | | | | [address] | | | | | | [place], [place] | | | | | | [address] | | | | | | [phone] | | | +--------+ + + + [...] | | 2019 | [place] | | [address] | | | | | | [address] | | | | | | [place], [place] | | | | | | [address] | | | | | | [phone] | | | | | | | | +--------+ + + + + | 09/27/ | Telephone-S | Liver Transplant | Vimal Crowe MD | | | 2019 | cheduled | | [address] | | | | | | [facility] [place], | | | | | | [place] [address] | | | | | | [phone] | | | | | | | | +--------+ + + + + | 10/03/ | Appointment | Cardiology | | | | 2019 | | | | | +--------+ + + + + | 10/03/ | Office | Cardiology | Cyril Samuel | | | 2019 | Visit | | MD Patricia [address] | | | | | | [address] | | | | | | [place], [place] | | | | | | [address] | | | | | | [phone] | | | | | | | | +--------+ + + + + documented as of this encounter Visit Diagnoses Not on filedocumented in this encounter"
--- OUTSIDE RECORDS SUMMARY | ~2020-07-29 | XMS | Encounter Summary ---
Demographics + + + | Address | [address] | | | [place] [address] | + + + | Home Phone [...] [place] | | | | | [address] | | + + + + + Care Team Providers + +------+ + | Care Production Department Supervisor Name | Role | Phone | + +------+ + | Sharon David MD | PCP | | + +------+ + Reason for Referral Consultation (Routine) +--------+---------+ + + + + [...] | | CONSULT TO | Rd | [place], [place] | | | | | HEMATOLOGY / | [place] | [address] | | | | | ONCOLOGY | [address] | Phone: | | | | | | Phone: | [phone] | | | | | | [phone] | Fax: | | | | | | Fax: | [phone] | | | | | | [phone] | | +--------+---------+ + + + + Encounter Details +--------+ + + + + | Date | Type | Department | Care Team | Description | +--------+ + + + + | /05/ | Cloth Mercerizer Operator | [facility] | Jamila Riley MD | Iron overload | | 2019 | | Clinics at S | [address] | (Primary Dx) | | | | [place] [address] | [place], | | | | | [facility] for | [place] [address] | | | | | Health and Healing, | [phone] | | | | | [address] | | | | | | [place], [place] | | | | | | [address] | | | | | | [phone] | | | +--------+ + + + [...] | 2019 | [place]on | | [address] [facility] [address] | | | | | | [address] | | | | | | [place], [place] | | | | | | [address] | | | | | | [phone] | | | | | | | | +--------+ + + + + | 09/27/ | Telephone-S | Liver Transplant | Vimal Crowe MD | | | 2019 | [place] | | [address] | | | | | | [address], | | | | | | [place] [address] | | | | | | [phone] | | | | | | | | +--------+ + + + + | 10/03/ | Appointment | Cardiology | | | | 2019 | | | | | +--------+ + + + + | 10/03/ | Office | Cardiology | Cyril Samuel | | | 2019 | Visit | | MD Patricia [address] | | | | | | [address] | | | | | | [place], [place] | | | | | | [address] | | | | | | [phone] | | | | | | | | +--------+ + + + + documented as of this encounter Visit Diagnoses + + | Diagnosis | + + | Iron overload - Primary Other disorders of iron metabolism | + + documented in this encounter"
--- OUTSIDE RECORDS SUMMARY | ~2020-07-29 | XMS | Encounter Summary ---
Demographics + + + | Address | [address] | | | [place] [address] | + + + | Home Phone [...] [place] | | | | | [address] | | + + + + + Care Team Providers + +------+ + | Care Checker In Name | Role | Phone | + +------+ + | Sharon David MD | PCP | | + +------+ + Encounter Details +--------+--------+ + + + | Date | Type | Department | Care Team | Description | +--------+--------+ + + + | 10/12/ | Travel | | | | | [...] Rd | | | | | | [place], [place] | | | | | | [address] | | | | | | [phone] | | | | | | | | +--------+ + + + + | 09/27/ | Telephone-S | Liver Transplant | Vimal Crowe MD | | | 2019 | [place] | | [address] | | | | | | [address], | | | | | | [place] [address] | | | | | | [phone] | | | | | | | [...] [place] | | | | | | [address] | | | | | | [phone] | | | | | | | | +--------+ + + + + documented as of this encounter Visit Diagnoses Not on filedocumented in this encounter"
--- OUTSIDE RECORDS SUMMARY | ~2020-07-29 | XMS | Encounter Summary ---
Demographics + + + | Address | [address] | | | [place] [address] | + + + | Home Phone [...] [place] | | | | | [address] | | + + + + + Care Team Providers + +------+ + | Care Barrel Drum Cutter Name | Role | Phone | + +------+ + | Sharon David MD | PCP | | + +------+ + Encounter Details +--------+ + + + + | Date | Type | Department | Care Team | Description | +--------+ + + + + | 12/21/ | Abstract | Clinical | Vimal Crowe MD | | | 2019 | | Transplant Services | [address] | | | | | [address] | [address] [place], | | | | | [place], | [place] [address] | | | | | [place] [address] | [phone] | | | | | [phone] | | | +--------+ + + + [...] Rd | | | | | | [place], [place] | | | | | | [address] | | | | | | [phone] | | | | | | | | +--------+ + + + + | 09/27/ | Telephone-S | Liver Transplant | Vimal Corwe MD | | | 2019 | [place] | | [address] | | | | | | [facility] [address] [place], | | | | | | [place] [address] | | | | | | [phone] | | | | | | | | +--------+ + + + + | 10/03/ | Appointment | Cardiology | | | | 2019 | | | | | +--------+ + + + + | 10/03/ | Office | Cardiology | Cyril Samuel | | | 2019 | Visit | Darren Gomez MD [address] | | | | | | [address] | | | | | | [place], [place] | | | | | | [address] | | | | | | [phone] | | | | | | | | +--------+ + + + + documented as of this encounter Procedures + +--------+ + + + | Procedure Name | Priori | Date/Time | Associated Diagnosis | Comments | | | ty | | | | + +--------+ + + + | LIVER TRANSPLANT | Routin | 12/21/2019 | | Results for this | | POST PANEL (EXT | e | 10:31 AM | | procedure are in the | | RESULTS) | | PST | | results section. | + +--------+ + + + documented in this encounter Results LIVER TRANSPLANT POST PANEL (EXT RESULTS) (12/21/2019 10:31 AM PST) + + + + + [...] + + + + | GLUCOSE, | 137 (A) | 65 - 110 mg/dL | [...] + + + + | CREATININE | 2.19 | mg/dL | [facility] | | | [...] + + + + | PHOSPHORUS, | 5.4 | mg/dL | [facility] | [...] + + | ALK PHOS | 44 | U/L | [facility] | | | | | | LAB - | | | | | | [place] | | + + + + + + | AST(SGOT) | 9 | U/L | [facility] | [...] + + + | URIC ACID, | 8.6 | mg/dL | [facility] | | | [...] + + + | HEMATOCRIT | 34.2 | % | [facility] | | | [...] [address] | [place] | [phone] | | [place] | | | | + + + + + documented in this encounter Visit Diagnoses Not on filedocumented in this encounter"
--- OUTSIDE RECORDS SUMMARY | ~2020-07-29 | XMS | Encounter Summary ---
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 | | [address] | | without ascites, | | | | Center for [facility] | | unspecified hepatic | | | | and Healing, | | cirrhosis type | | | | Building [address] | | (HCC); CKD (chronic | | | | [place], [place] | | kidney disease) | | | | [address] | | stage 3, GFR 30-59 | | | | [phone] | | ml/min (HCC); | | | [...] documented as of this encounter Miscellaneous Notes Addendum Note - Lali Baltazar - 11/19/2018 4:50 PM PST Addended by: LALI BALTAZAR on: 11/19/2018 06:13 PM Modules accepted: Orders documented in th is encounter Plan of Treatment +--------+ + + + + | Date | Type | Specialty | Care Team | Description | +--------+ + + + + | 08/08/ | Telephone-S | Nephrology | Angélica Chao, | | | 2019 | [place] | | [address] | | | | | | [address] | | | | | | [place], [place] | | | | | | [address] | | | | | | [phone] | | | | | | | | +--------+ + + + + | 09/27/ | Telephone-S | Liver Transplant | Vimal Crowe MD | | 2019 | cheduled | | [address] | | | | | | [address], | | | | | | [place] [address] | | | | | | [phone] | | | | | | | [...] Rd | | | | | | [place], [place] | | | | | | [address] | | | | | | [phone] | | | | | | | [...] documented in this encounter Results PHOSPHATIDYLETHANOL (PETH) (11/19/2018 4:51 PM PST) + + + + + + | Component | Value | Ref Range | Performed | Pathologist | | | | | At | Signature | + + + + + + | PHOSPHATIDY | NEGATIVEComment: | NEGATIVE ng/mL | [facility] | | | LETHANOL | Analyzed compound: PEth | | REG [facility] | | | (PETH) | 16:0/18:1.2-lwkgpktzt-0- | | PTH - [facility] | | | | mzngyw-me-qhzmyxa-3-phos | | | | | | phoethanol.Analysis [...] | | | | | d [facility]. It has not | | | | | | been cleared or | | | | | | approvedby the Food and | | | | | | Drug | | | | | | Administration.Performed | | | | | | at: [facility] [address] | | | | | | [facility] | | | | | | [place] [address] | | | | + + + + + + + + | Specimen | + + | Blood - Blood | | (substance) | + + + + + + + | Performing | Address | City/State/Zipcode | Phone Number | | Organization | | | | + + + + + | [facility] | [address] | [place], [place] | | | [facility] | | [address] | | + + + + + CBC (HEMOGRAM) ONLY (11/19/2018 4:51 PM PST) + + + + + + | Component | Value | Ref Range | Performed | Pathologist | | | | | At | Signature | + + + + + + | WHITE CELL | 5.42 | 3.50 - 10.80 | [facility] | | | COUNT | | K/cu mm | LABORATORY | | | | | | SERVICES, | | | | | | CORE | | + + + + + + | RED CELL | 2.28 (L) | 4.50 - 6.00 | [facility] [...] + + + | PLATELET | 56 (L)Comment: Giant | 150 - [...] [facility] | [address] | [place] [address] | | | SERVICES, CORE | [address] | | | + + + + + [facility] - COMPLETE METABOLIC SET (11/19/2018 4:51 PM [...] | | | LABORATORY | | | [facility] | | | SERVICES, | | | [...] LABORATORY | [address] | [place] [address] | | | SERVICES, CORE | PARK [...] [facility] | [address] | [place] [address] | | | SERVICES, CORE | PARK [...] Male | 50 - 200 ng/mL | [facility] | | | | and Female >18 [...] | + + + + + | [facility] | [address] | [place] [address] | | | ARTIS TAYLOR | [address] [...] [facility] | [address] | [place] [address] | | | SERVICESARTIS | [address] [...] | | | LABORATORY | | | [place] | | | SERVICES, | | | [...] [facility] | [address] | [place] [address] | | | SERVICES, CORE | [address] [...] | III (moderate) | + + | Alcoholic hepatitis with ascites Acute alcoholic hepatitis | + + documented in this encounter
--- OUTSIDE RECORDS SUMMARY | ~2020-07-29 | XMS | Encounter Summary ---
Demographics + + + | Address | [address] | | | [place] [address] | + + + | Home Phone [...] [place] | | | | | [address] | | + + + + + Care Team Providers + +------+ + | Care Systems Architect Name | Role | Phone | + +------+ + | Sharon David MD | PCP | | + +------+ + Encounter Details +--------+ + + + + | Date | Type | Department | Care Team | Description | +--------+ + + + + | 02/23/ | Pharmacy | [facility] | | | | 2020 | Visit | [address] | | | | | | [address] | | | | | | [place] [address] | | | | | | [phone] | | | +--------+ + + + [...] Rd | | | | | | [place], [place] | | | | | | [address] | | | | | | [phone] | | | | | | | | +--------+ + + + + | 09/27/ | Telephone-S | Liver Transplant | Vimal Crowe MD | | | 2019 | cheduled | | [address] | | | | | | [address], | | | | | | [place] [address] | | | | | | [phone] | | | | | | | | +--------+ + + + + | 10/03/ | Appointment | Cardiology | | | | 2019 | | | | | +--------+ + + + + | 10/03/ | Office | Cardiology | Cyril Samuel | | | 2019 | Visit | | MD [place] [address] | | | | | | [address] | | | | | | [place] | | | | | | [address] | | | | | | [phone] | | | | | | | | +--------+ + + + + documented as of this encounter Visit Diagnoses Not on filedocumented in this encounter"
--- OUTSIDE RECORDS SUMMARY | ~2020-07-29 | XMS | Encounter Summary ---
Demographics + + + | Address | [address] | | | [place] [address] | + + + | Home Phone [...] [place] | | | | | [address] | | + + + + + Care Team Providers + +------+ + | Care Natural Science Manager Name | Role | Phone | + +------+ + | Sharon David MD | PCP | | + +------+ + Reason for Visit + +--------+ + | Reason | Onset | Comments | | | Date | | + +--------+ + | Liver Transplant | 11/20/ | pharmacy requirement for filgrastim | | Follow Up | 2020 | | + +--------+ + Encounter Details +--------+ + + + + | Date | Type | Department | Care Team | Description | +--------+ + + + + | 11/20/ | Corporate Administrator | Clinical | Cecille Brunner RN | | | 2020 | | Transplant Services | [address] | | | | | [address] | [facility] | | | | | [place], | [place] [address] | | | | | [place] [address] | | | | | | [phone] | | | +--------+ + + + [...] Telephone Encounter - Cecille Brunner RN - 11/20/2019 12:03 PM PSTPer insurance requirements, Zarxio (filgrastim) medication needs to be filled thru [email or web address]. Rx sent per verbal ord er received from Dr. Crowe. Left VM message for Donell w/ steve. Requested he call us when Zarxio arrives to him. documented in this encou nter Plan of Treatment +--------+ + + + + | Date | Type | Specialty | Care Team | Description | +--------+ + + + + | 08/08/ | Telephone-S | Nephrology | Angélica Chao, | | 2019 | [place] | | [address] | | | | | | [address] | | | | | | [place], [place] | | | | | | [address] | | | | | | [phone] | | | | | | | | +--------+ + + + + | 09/27/ | Telephone-S | Liver Transplant | Vimal Crowe MD | | 2019 | cheduled | | [address] | | | | | | [place], | | | | | | [place] [address] | | | | | | [phone] | | | | | | | [...] | | | | | | [facility] [place] | | | | | | [address] | | | | | | [phone] | | | | | | | | +--------+ + + + + documented as of this encounter Visit Diagnoses Not on filedocumented in this encounter"
--- OUTSIDE RECORDS SUMMARY | ~2020-07-29 | XMS | Encounter Summary ---
Demographics + + + | Address | [address] | | | [place] [address] | + + + | Home Phone [...] [place] | | | | | [address] | | + + + + + Care Team Providers + +------+ + | Care Transformer Repairer Name | Role | Phone | [...] floor | | | | | | [place], [place] | | | | | | [address] | | | | | | [phone] | | | +--------+ + + + [...] Rd | | | | | | [place], [place] | | | | | | [address] | | | | | | [phone] | | | | | | | | +--------+ + + + + | 09/27/ | Telephone-S | Liver Transplant | Vimal Crowe MD | | | 2019 | [place] | | [address] | | | | | | [facility] [place], | | | | | | [place] [address] | | | | | | [phone] | | | | | | | [...] Rd | | | | | | [place], [place] | | | | | | [address] | | | | | | [phone] | | | | | | | | +--------+ + + + + documented as of this encounter Visit Diagnoses Not on filedocumented in this encounter"
--- OUTSIDE RECORDS SUMMARY | ~2020-07-29 | XMS | Encounter Summary ---
Demographics + + + | Address | [address] | | | [place] [address] | + + + | Home Phone [...] [place] | | | | | [address] | | + + + + + Care Team Providers + +------+ + | Care Dray Truck Driver Name | Role | Phone | + +------+ + | Sharon David MD | PCP | | + +------+ + Encounter Details +--------+ + + + + | Date | Type | Department | Care Team | Description | +--------+ + + + + | 08/25/ | Pharmacy | Specialty Pharmacy | | | | 2019 | Visit | Services [address] | | | | | | [address] | | | | | | [place], [place] | | | | | | [address] | | | | | | [phone] | | | +--------+ + + + [...] | | 2019 | [place] | | [address] | | | | | | [address] | | | | | | [place], [place] | | | | | | [address] | | | | | | [phone] | | | | | | | | +--------+ + + + + | 09/27/ | Telephone-S | Liver Transplant | Vimal Crowe MD | | | 2019 | cheduled | | [address] | | | | | | [facility] [place], | | | | | | [place] [address] | | | | | | [phone] | | | | | | | [...] Rd | | | | | | [place], [place] | | | | | | [address] | | | | | | [phone] | | | | | | | | +--------+ + + + + documented as of this encounter Visit Diagnoses Not on filedocumented in this encounter"
--- OUTSIDE RECORDS SUMMARY | ~2020-07-29 | XMS | Encounter Summary ---
Demographics + + + | Address | [address] | | | [place] [address] | + + + | Home Phone [...] [place] | | | | | [address] | | + + + + + Care Team Providers + +------+ + | Care Rad Tech Name | Role | Phone | + +------+ + | Sharon David MD | PCP | | + +------+ + Reason for Visit + +--------+ + | Reason | Onset | Comments | | | Date | | + +--------+ + | MELD Score | 07/16/ | Listing Labs | | | 2019 | | + +--------+ + Encounter Details +--------+ + + + + | Date | Type | Department | Care Team | Description | +--------+ + + + + | 07/16/ | Abstract | Clinical | Vimal Crowe MD | MELD Score (Listing | | 2019 | | Transplant Services | [address] | Labs) | | | | [address] | [address] [place], | | | | | [place], | [place] [address] | | | | | [place] [address] | [phone] | | | | | [phone] | | | +--------+ + + + [...] as of this encounter Amy Evans - 07/16/2019 1:58 PM PDTEntry verified in [facility] Waitlist. documented [...] Rd | | | | | | [place], [place] | | | | | | [address] | | | | | | [phone] | | | | | | | | +--------+ + + + + | 09/27/ | Telephone-S | Liver Transplant | Vimal Crowe MD | | | 2019 | cheduled | | [address] | | | | | | [address], | | | | | | [place] [address] | | | | | | [phone] | | | | | | | [...] Rd | | | | | | [place], [place] | | | | | | [address] | | | | | | [phone] | | | | | | | | +--------+ + + + + documented as of this encounter Procedures + +--------+ + + + | Procedure Name | Priori | Date/Time | Associated Diagnosis | Comments | | | ty | | | | + +--------+ + + + | LIVER PRE-TRANSPLANT | Routin | 07/16/2019 | | Results for this | | [...] RESULTS PANEL (FOR EXTERNAL RESULT ENTRY ONLY) (06/22) + + + + + + | Component | Value | Ref Range | Performed | Pathologist | | | | | At | Signature | + + + + + + | SODIUM, | 128 (A) | mmol/L | [facility] | | | [facility] | | (LAB[facility] | | [facility] | | + + + + + + | POTASSIUM, | 4.5 | mmol/L | [facility] | [facility] | | | [facility] | | | (LAB) | | [facility] | | + + + + + + | GLUCOSE, | 447 (A) | 65 - 110 mg/dL | [facility] | | | [facility] | | | [facility] | | | (LAB) | | [facility] | | + + + + + + | BUN, PLASMA | 48 (A) | mg/dL | [facility] | | | (LAB) | | | [facility] | | | | | [facility] | | + + + + + + | CREATININE | 1.98 (A) | mg/dL | [facility] | [facility] | | | [facility] | | | (LAB) | | [facility] | | + + + + + + | ALBUMIN, | 3.3 (A) | g/dL | [facility] | | [facility] | | | [facility] | | | (LAB) | | | [facility] | | + + + + + + | BILIRUBIN | 15.0 (A) | Transcutaneous | [facility] | | | TOTAL | | Bilirubinometer | [facility] | | | | [facility] | | + + + + + + | ALK PHOS | 157 (A) | U/L | [facility] | | | | | | [facility] | | | [facility] | | + + + + + + | AST(SGOT) | 66 (A) | U/L | [facility] | | | | | | [facility] | | | | [facility] | | + + + + + + | ALT (SGPT) | 45 | U/L | [facility] | | | | | [facility] | | | | [facility] | | + + + + + + | INR | 2.0 (A) | 0.98 - 1.08 INR | [facility] | | | | | | [facility] | | | | [facility] | | + + + + + + | MELD | 34Comment: Calculated | | GOOD | | | | Manually Using [facility] MELD | | [facility] | | | | Calculator | | [facility] | | + + + + + [...] | + + + + + | [facility] | [address] | [place] | [phone] | | HOSPITAL | | [address] | | + + + + + documented in this encounter Visit Diagnoses Not on filedocumented in this encounter"
--- OUTSIDE RECORDS SUMMARY | ~2020-07-29 | XMS | Encounter Summary ---
Demographics + + + | Address | [address] | | | [place] [address] | + + + | Home Phone [...] [place] | | | | | [address] | | + + + + + Care Team Providers + +------+ + | Care Offender Employment Specialist Name | Role | Phone | + +------+ + | Sharon David MD | PCP | | + +------+ + Encounter Details +--------+ + + + + | Date | Type | Department | Care Team | Description | +--------+ + + + + | 11/19/ | Pharmacy | [facility] | | | | 2020 | Visit | [address] | | | | | | [address] | | | | | | [place] [address] | | | | | | [phone] | | | +--------+ + + + [...] Rd | | | | | | [place], [place] | | | | | | [address] | | | | | | [phone] | | | | | | | | +--------+ + + + + | 09/27/ | Telephone-S | Liver Transplant | Vimal Crowe MD | | | 2019 | cheduled | | [address] | | | | | | [address], | | | | | | [place] [address] | | | | | | [phone] | | | | | | | | +--------+ + + + + | 10/03/ | Appointment | Cardiology | | | | 2019 | | | | | +--------+ + + + + | 10/03/ | Office | Cardiology | Cyril Sameul | | | 2019 | Visit | | MD [place] [address] | | | | | | [address] | | | | | | [place] | | | | | | [address] | | | | | | [phone] | | | | | | | | +--------+ + + + + documented as of this encounter Visit Diagnoses Not on filedocumented in this encounter"
--- OUTSIDE RECORDS SUMMARY | ~2020-07-29 | XMS | Encounter Summary ---
Demographics + + + | Address | [address] | | | [place] [address] | + + + | Home Phone [...] [place] | | | | | [address] | | + + + + + Care Team Providers + +------+ + | Care Rn Employee Health Name | Role | Phone | + +------+ + | Sharon David MD | PCP | | + +------+ + Reason for Visit + +--------+ + | Reason | Onset | Comments | | | Date | | + +--------+ + | Lab Results | 04/28/ | | | | 2020 | | + +--------+ + Encounter Details +--------+ + + + + | Date | Type | Department | Care Team | Description | +--------+ + + + + | 04/28/ | Telephone | Nephrology & | Angélica Chao, | Lab Results | | 2020 | | Hypertension at [facility] | MD [address] | | | | | [address] | [facility] | | | | | Loop Physician's | [place], [place] | | | | | Pavilion, 3rd floor | [address] | | | | | [place], [place] | [phone] | | | | | [address] | | | | | | [phone] | | | +--------+ + + + [...] Telephone Encounter - Kena Domínguez MA - 04/29/2020 10:35 AM PDTFaxed External Lab Orders t o [facility] [place] [phone]. Faxed External US Kidney & Bladder Order [phone]. Called [phone]. Patient would just need to call the main line and will then be transferred to [facility] to get scheduled. Called [phone], spoke with patient. Patient understood and is aware of process. Stat es will call over there today and will hopefully be scheduled for next week. Kena Domínguez MA elephone Encounter - Angélica Pereira MD - 04/28/2020 4:12 PM PDTCalled pt to follow up. Creatinine 3.1-3.2 past 2 lab checks, from 2-2.3. Per pt, his only new medication is isosorbide dinitrate - he was told this is to lower BP a nd to help his heart. He notes BP has been high lately, SBP 150-160s.He started new med on but this week BP still high. He does not have a BP machine for home. He has had a headac he with this but that is improving. He was on metop but ran out - waiting on refills. No per ipheral edema. He was also recently told that his heart is "weak" (pt reports EF 30-35%). He has a 30 day event monitor on now but it's not entirely clear to me from our conversation w hat this is trying to capture. He notes he just talked with liver txp coordinator and they are lowering his tacrolimus dos e. No urinary hesitancy but often has to go "all night long," but less during the day. Pt has KAR on CKD - etiology of KAR is unclear. Pt and I discussed the following plan: -Given urinary symptoms at night, I will order ultrasound of kidneys to be done at [facility] in [place] -labs in 1 wk at [facility] in [place] -if edema recurs or new symptoms, he will call -virtual appt with me later this month Angélica Chao MD [facility] Ass[facility] Professor Division of Nephrology and Hypertension Office tel: [phone] P M PDTTelephone Encounter - Angélica Waite - 04/28/2020 8:04 AM PDTCall from patient PCP told him to call his insole tape stitcher uco due to his most recent labs (see 04/25/20 in Labs tab ) kidney function results. Please call back [phone] signed by Angélica Waite at 04/28/2020 8:07 AM PDTdocumented in this encounter Plan of Treatment +--------+ + + + + | Date | Type | Specialty | Care Team | Description | +--------+ + + + + | 08/08/ | Telephone-S | Nephrology | Angélica Chao, | | | 2019 | [place] | | [address] | | | | | | [address] | | | | | | [place], [place] | | | | | | [address] | | | | | | [phone] | | | | | | | | +--------+ + + + + | 09/27/ | Telephone-S | Liver Transplant | Vimal Crowe MD | | 2019 | cheduled | | [address] | | | | | | [address], | | | | | | [place] [address] | | | | | | [phone] | | | | | | | | +--------+ + + + + | 10/03/ | Appointment | Cardiology | | | | 2020 | | | | | +--------+ + + + + | 10/03/ | Office | Cardiology | Cyril Samuel | | | 2019 | Visit | | MD [place] [address] [facility] | | | | | | [address] | | | | | | [place], [place] | | | | | | [address] | | | | | | [phone] | | | | | | | | +--------+ + + + + + +---------+--------+ + + | Name | Type | Priori | Associated Diagnoses | Order Schedule | | | | ty | | | + +---------+--------+ + + | US KIDNEY & BLADDER | Imaging | Urgent | Acute kidney | Expected: | | | | | injury superimposed | 04/28/2020, Expires: | | | | | on CKD (HCC) | 05/29/2021 | + +---------+--------+ + + documented as of this encounter Results PROTEIN/CREATININE RATIO, URINE (05/09/2020) + + + [...] [address] | [place], [place] | [phone] | | [place] | | | | + + + + + RENAL FUNCTION SET (NA,K,CL,CO2,BUN,CREAT,GLUC,CA,PHOS,ALB ) (05/09/2020) + + + + + + | Component | Value | Ref Range | Performed | Pathologist | | | | | At | Signature | + + + + + + | GLUCOSE, | 393 (A) | 70 - 100 mg/dL | [facility] | | | PLASMA | | | LAB - | | | (LAB) | | | [place] | | + + + + + + | BUN, PLASMA | 47 (A) | 6 - 23 mg/dL | [facility] | | | (LAB) | | | LAB - | | | | | | [place] | | + + + + + + | CREATININE | 2.26 (A) | 0.70 - 1.33 | [facility] | | | PLASMA | | mg/dL | LAB - | | | (LAB) | | | [place] | | + + + + + + | ALBUMIN, | 4.0 | 3.2 - 5.0 g/dL | [facility] | | | PLASMA | | | LAB - | | | (LAB) | | | [place] | | + + + + + + | CALCIUM, | 9.2 | 8.5 - 10.3 | [facility] | | | PLASMA | | mg/dL | LAB - | | | (LAB) | | | [place] | | + + + + + + | PHOSPHORUS, | 3.8 | 2.5 - 5.0 mg/dL | [facility] | | | PLASMA | | | LAB - | | | (LAB) | | | [place] | | + + + + + + | SODIUM, | 140 | 132 - 143 | [facility] | | | PLASMA | | mmol/L | LAB - | | | (LAB) | | | [place] | | + + + + + + | POTASSIUM, | 4.5 | 3.6 - 5.1 | [facility] | | | PLASMA | | mmol/L | LAB - | | | (LAB) | | | [place] | | + + + + + + | CHLORIDE, | 102 | 95 - 112 mmol/L | [facility] | | | PLASMA | | | LAB - | | | (LAB) | | | [place] | | + + + + + + | TOTAL CO2, | 30 | 19 - 31 mmol/L | [facility] | | | PLASMA | | | LAB - | | | (LAB) | | | [place] | | + + + + + + | ESTIMATED | 30 | | [facility] | | | GFR | [...] + + | [facility] - | [address] | [place] | [phone] | | [place] | | | | + + + + + documented in this encounter Visit Diagnoses + + | Diagnosis | + + | CKD (chronic kidney disease) stage 3, GFR 30-59 ml/min - Primary Chronic kidney | | disease, Stage III (moderate) | + + | Acute kidney injury superimposed on CKD (HCC) | + + documented in this encounter
--- OUTSIDE RECORDS SUMMARY | ~2020-07-29 | XMS | Encounter Summary ---
Demographics + + + | Address | [address] | | | [place] [address] | + + + | Home Phone [...] [place] | | | | | [address] | | + + + + + Care Team Providers + +------+ + | Care Insect Control Inspector Name | Role | Phone | + +------+ + | Sharon David MD | PCP | | + +------+ + Encounter Details +--------+------+ + + + | Date | Type | Department | Care Team | Description | +--------+------+ + + + | 11/09/ | Lab | Laboratory at [facility] | | Liver transplant | | 2019 | | [address] | | status (HCC); Liver | | | [facility] | replaced by | | | | and Healing, | | transplant (HCC) | | | | [address] | | | | | | [place], [place] | | | | | | [address] | | | | | | [phone] | | | +--------+------+ + + + [...] | 2019 | [place] | | [address] [facility] | | | | | | [address] | | | | | | [place], [place] | | | | | | [address] | | | | | | [phone] | | | | | | | | +--------+ + + + + | 09/27/ | Telephone-S | Liver Transplant | Vimal Crowe MD | | | 2019 | [place] | | [address] | | | | | | [address], | | | | | | [place] [address] | | | | | | [phone] | | | | | | | [...] Rd | | | | | | [place], [place] | | | | | | [address] | | | | | | [phone] | | | | | | | | +--------+ + + + + documented as of this encounter Procedures + +--------+ + + + | Procedure Name | Priori | Date/Time | Associated Diagnosis | Comments | | | ty | | | | + +--------+ + + + | PHOSPHATIDYLETHANOL | Routin | 11/09/2019 | Liver replaced by | Results for this | | (PETH) | e | 7:53 AM | transplant (HCC) | procedure are in the | | | | PST | | results section. | + +--------+ + + + | ETHYL GLUCURONIDE | Routin | 11/09/2019 | Liver replaced by | Results for this | | QUANT, URINE | e | 7:53 AM | transplant (HCC) | procedure are in the | | | | PST | | results section. | + +--------+ + + + | CBC AND AUTO DIFF | Routin | 11/09/2019 | Liver transplant | Results for this | | | e | 7:53 AM | status (HCC) | procedure are in the | | | | PST | | results section. | + +--------+ + + + | CBC, WITH | Routin | 11/09/2019 | Liver transplant | Results for this | | DIFFERENTIAL | e | 7:53 AM | status (HCC) | procedure are in the | | | | PST | | results section. | + +--------+ + + + | COMPLETE METABOLIC | Routin | 11/09/2019 | Liver transplant | Results for this | | SET | e | 7:53 AM | status (HCC) | procedure are in the | | (NA,K,CL,CO2,BUN,CRE | | PST | | results section. | | AT,GLUC,CA,AST,ALT,B | | | | | | KEV TOTAL,ALK | | | | | | PHOS,ALB,PROT TOTAL) | | | | | + +--------+ + + + | TACROLIMUS, WHOLE | Routin | 11/09/2019 | Liver transplant | Results for this | | BLOOD | e | 7:53 AM | status (HCC) | procedure are in the | | | | PST | | results section. | + +--------+ + + + | PHOSPHORUS, PLASMA | Routin | 11/09/2019 | Liver transplant | Results for this | | | e | 7:53 AM | status (HCC) | procedure are in the | | | | PST | | results section. | + +--------+ + + + | BILIRUBIN DIRECT | Routin | 11/09/2019 | Liver transplant | Results for this | | | e | 7:53 AM | status (HCC) | procedure are in the | | | | PST | | results section. | + +--------+ + + + | URIC ACID, PLASMA | Routin | 11/09/2019 | Liver transplant | Results for this | | | e | 7:53 AM | status (HCC) | procedure are in the | | | | PST | | results section. | + +--------+ + + + | MAGNESIUM, PLASMA | Routin | 11/09/2019 | Liver transplant | Results for this | | | e | 7:53 AM | status (HCC) | procedure are in the | | | | PST | | results section. | + +--------+ + + + | IRON AND TIBC, SERUM | Routin | 11/09/2019 | Liver replaced by | Results for this | | | e | 7:53 AM | transplant (HCC) | procedure are in the | | | | PST | | results section. | + +--------+ + + + documented in this encounter Results CBC AND AUTO DIFF (11/09/2019 7:53 AM PST) + + + + + + | Component | Value | Ref Range | Performed | Pathologist | | | | | At | Signature | + + + + + + | WHITE CELL | 1.57 (L) | 3.50 - 10.80 | [facility] [...] + + + + | HEMOGLOBIN | 10.2 (L) | 13.5 - 17.5 | [facility] | | | | | g/dL | LABORATORY | | | | | | SERVICES, | | | | | | [facility] | | [facility] + | | | | | | [facility]ALING | | + + + + + + | HEMATOCRIT | 31.7 (L) | 41.0 - 53.0 % | [facility] | | | | | | LABORATORY | | | | | | SERVICES, | | | | | | [facility] | | | [facility] + | | | | | | [facility]ALING | | + + + + + + | MCV | 91.6 | 80.0 - 100.0 fL | [facility] [...] + + + + | PLATELET | 73 (L) | 150 - 400 K/cu | [...] + + + + | NEUTROPHIL | 45.9 (L) | 50.0 - 70.0 % | [facility] | | | % | | | LABORATORY | | | | | | SERVICES, | | | | | | [facility] | | | | [facility] + | | | | | | [facility]ALING | | + + + + + + | LYMPHOCYTE | 36.9 | 18.0 - 42.0 % | [facility] | | | % | | | LABORATORY | | | | | | SERVICES, | | | | | | [facility] | | | | | [facility] + | | | | | | HEALING | | + + + + + + | MONOCYTE % | 8.3 | 3.5 - 9.0 % | [facility] | | | | | | LABORATORY | | | | | | SERVICES, | | | | | | [facility] | | | | [facility] + | | | | | | HEALING | | + + + + + + | EOS % | 7.0 (H) | 1.0 - 3.0 % | [...] + + + + | NEUTROPHIL | 0.72 (L) | 1.80 - 7.70 | [facility] | | | # | | K/cu mm | LABORATORY | | | | | | SERVICES, | | | | | | [facility] | | | | | [facility] + | | | | | | HEALING | | + + + + + + | NEUTROPHIL | 0.72 (L)Comment: | 1.80 - 7.70 | [facility] | | | # Prelim | Preliminary automated | K/cu mm | LABORATORY | | | | neutrophil result. | | SERVICES, | | | | Refer to Neutrophil # | | [facility]ENTER FOR | | | | for final neutrophil | | HEALTH + | | | | result, which may differ | | HEALING | | | | from this preliminary | | | | | | value. | | | | + + + + + + | LYMPHOCYTE | 0.58 (L) | 1.00 - 4.80 | [facility] | | | # | | K/cu mm | LABORATORY | | | | | | SERVICES, | | | | | | [facility] | | | | | | [facility] + | | | | | | HEALING | | + + + + + + | MONOCYTE # | 0.13 | 0.10 - 0.90 | [facility] | [...] | included in the neutrophil count. | [facility] | | | [facility]ALTH + | | | [facility]ALING | + + + + + + + + | Performing | Address | City/State/Zipcode | Phone Number | | Organization | | | | + + + + + | [facility] | [address] | [place] [address] | | | [facility] | | | | | HE[facility] + HEALING | | | | + + + + + IRON AND TIBC (11/09/2019 7:53 AM PST) [...] | + + + + + | [facility] | [address] | [place] [address] | | | SERVICES, CORE | [address] | | | + + + + + ETHYL GLUCURONIDE QUANT, URINE (11/09/2019 7:53 AM [...] | | | | | determined by [facility] | | | | | | Laboratories. See | | | | | | Compliance Statement B: | | | | | | [email or web address] | | | | | | by [employer],[address] | | | | | | [facility] | | | | | | [address] | | | | | | [phone]. | | | | | | com, [...] [facility] | [address] | [place], [place] | | | [facility] | | [address] | | + + + + + [...] REG UNIV | | | (PETH) | 16:0/18:1.8-[id number] | | PTH - [facility] | | | | czlprw-no-swzvnld-3-phos | | | | | | phoethanol.Analysis [...] | | | | at: [facility] [address] | | | | | | [facility] | | | | | | [place] [address] | | | | + + + + + + + + | Specimen | + + | Blood - Blood | | (substance) | + + + + + + + | Performing | Address | City/State/Zipcode | Phone Number | | Organization | | | | + + + + + | [facility] | [address] | [place], [place] | | | [facility] | | [address] | | + + + + + [...] + | [facility] | [address] | [place] [address] | | | SERVICES, [facility]ENTER FOR | [...] | Test performed by immunoassay using [employer] i2000. . | [facility] | | Samples [...] | [facility] | [address] | [place] [address] | | | SERVICES SPECIAL | [address] | | | [...] + + + | [facility] | [address] | [place] [address] | | | SERVICES, [facility] [facility] | | | | | HEALTH [...] SERVICES, | | | | | | [facility] [facility] | | | | | | [...] + | [facility] | [address] | [place] [address] | | | SERVICES, CENTER FOR | [...] SERVICES, | | | | | | [place] [facility] | | | | | | [...] | [facility] | [address] | [place] [address] | | | SERVICES, [facility] | | | | | HEALTH [...] | | | LABORATORY | | | [place] | | | SERVICES, | | | [...] + + | [facility] | [address] | [place] [address] | | | [facility] [...]
--- OUTSIDE RECORDS SUMMARY | ~2020-07-29 | XMS | Encounter Summary ---
Demographics + + + | Address | [address] | | | [place] [address] | + + + | Home Phone [...] [place] | | | | | [address] | | + + + + + Care Team Providers + +------+ + | Care Ostomy Rn Name | Role | Phone | + +------+ + | Sharon David MD | PCP | | + +------+ + Encounter Details +--------+ + + + + | Date | Type | Department | Care Team | Description | +--------+ + + + + | 07/06/ | Pharmacy | [facility] | | | | 2019 | Visit | [facility] | | | | | | [address] | | | | | | Mailcode: [place] | | | | | | [facility] and | | | | | | Healing, [address] | | | | | | [place], [place] | | | | | | [address] | | | | | | [phone] | | | +--------+ + + + [...] Rd | | | | | | [place], [place] | | | | | | [address] | | | | | | [phone] | | | | | | | | +--------+ + + + + | 09/27/ | Telephone-S | Liver Transplant | Vimal Crowe MD | | | 2019 | [place] | | [address] | | | | | | [address], | | | | | | [place] [address] | | | | | | [phone] | | | | | | | [...] Rd | | | | | | [place], [place] | | | | | | [address] | | | | | | [phone] | | | | | | | | +--------+ + + + + documented as of this encounter Visit Diagnoses Not on filedocumented in this encounter"
--- OUTSIDE RECORDS SUMMARY | ~2020-07-29 | XMS | Encounter Summary ---
Demographics + + + | Address | [address] | | | [place] [address] | + + + | Home Phone [...] [place] | | | | | [address] | | + + + + + Care Team Providers + +------+ + | Care Registrar Assistant Name | Role | Phone | + +------+ + | Sharon David MD | PCP | | + +------+ + Encounter Details +--------+ + + + + | Date | Type | Department | Care Team | Description | +--------+ + + + + | 07/19/ | Pharmacy | [facility] | | | | 2020 | Visit | [address] | | | | | | [address] | | | | | | [place] [address] | | | | | | [phone] | | | +--------+ + + + [...] Rd | | | | | | [place], [place] | | | | | | [address] | | | | | | [phone] | | | | | | | | +--------+ + + + + | 09/27/ | Telephone-S | Liver Transplant | Vimal Crowe MD | | | 2019 | [place] | | [address] | | | | | | [address], | | | | | | [place] [address] | | | | | | [phone] | | | | | | | [...] Rd | | | | | | [place] | | | | | | [address] | | | | | | [phone] | | | | | | | | +--------+ + + + + documented as of this encounter Visit Diagnoses Not on filedocumented in this encounter"
--- OUTSIDE RECORDS SUMMARY | ~2020-07-29 | XMS | Encounter Summary ---
Demographics + + + | Address | [address] | | | [place] [address] | + + + | Home Phone [...] [place] | | | | | [address] | | + + + + + Care Team Providers + +------+ + | Care Make Up Artist Name | Role | Phone | + +------+ + | Sharon David MD | PCP | | + +------+ + Encounter Details +--------+ + + + + | Date | Type | Department | Care Team | Description | +--------+ + + + + | 02/15/ | Abstract | Clinical | Vimal Crowe MD | | | 2019 | | Transplant Services | [address] | | | | | [address] | [address] [place], | | | | | [place], | [place] [address] | | | | | [place] [address] | [phone] | | | | | [phone] | | | +--------+ + + + [...] Rd | | | | | | [place], [place] | | | | | | [address] | | | | | | [phone] | | | | | | | | +--------+ + + + + | 09/27/ | Telephone-S | Liver Transplant | Vimal Crowe MD | | | 2019 | [place] | | [address] | | | | | | [facility] [address] [place], | | | | | | [place] [address] | | | | | | [phone] | | | | | | | | +--------+ + + + + | 10/03/ | Appointment | Cardiology | | | | 2019 | | | | | +--------+ + + + + | 10/03/ | Office | Cardiology | Cyril Samuel | | | 2019 | Visit | Darren Gomez MD [address] | | | | | | [address] | | | | | | [place], [place] | | | | | | [address] | | | | | | [phone] | | | | | | | | +--------+ + + + + documented as of this encounter Procedures + +--------+ + + + | Procedure Name | Priori | Date/Time | Associated Diagnosis | Comments | | | ty | | | | + +--------+ + + + | LIVER TRANSPLANT | Routin | 02/15/2020 | | Results for this | | POST PANEL (EXT | e | 9:41 AM | | procedure are in the | | RESULTS) | | PDT | | results section. | + +--------+ + + + documented in this encounter Results LIVER TRANSPLANT POST PANEL (EXT RESULTS) (02/15/2020 9:41 AM PDT) + + + + + [...] + + + | POTASSIUM, | 5.5 | mmol/L | [facility] | | | [...] + + + + | GLUCOSE, | 192 (A) | 65 - 110 mg/dL | [...] + | URIC ACID, | 7.6 | mg/dL | [facility] | | | PLASMA | | | LAB - | | | (LAB) | | | [place] | | + + + + + + | WHITE CELL | 5.3 | K/cu mm | [facility] | | | COUNT | | | LAB - | | | | | | [place] | | + + + + + + | HEMATOCRIT | 34.4 | % | [facility] | | | | | | LAB - | | | | | | [place] | | + + + + + + | HEMOGLOBIN | 11.9 (A) | 13.5 - 17.5 | [facility] [...] [address] | [place] | [phone] | | [place] | | | | + + + + + documented in this encounter Visit Diagnoses Not on filedocumented in this encounter"
--- OUTSIDE RECORDS SUMMARY | ~2020-07-29 | XMS | Encounter Summary ---
Demographics + + + | Address | [address] | | | [place] [address] | + + + | Home Phone [...] [place] | | | | | [address] | | + + + + + Care Team Providers + +------+ + | Care Byproducts Pump Operator Name | Role | Phone | + +------+ + | Sharon David MD | PCP | | + +------+ + Encounter Details +--------+ + + + + | Date | Type | Department | Care Team | Description | +--------+ + + + + | 10/27/ | Pharmacy | Specialty Pharmacy | | | | 2019 | Visit | Services [address] | | | | | | [address] | | | | | | [place], [place] | | | | | | [address] | | | | | | [phone] | | | +--------+ + + + [...] | | 2019 | [place] | | [address] | | | | | | [address] | | | | | | [place], [place] | | | | | | [address] | | | | | | [phone] | | | | | | | | +--------+ + + + + | 09/27/ | Telephone-S | Liver Transplant | Vimal Crowe MD | | | 2019 | [place] | | [address] | | | | | | [facility] [place], | | | | | | [place] [address] | | | | | | [phone] | | | | | | | | +--------+ + + + + | 10/03/ | Appointment | Cardiology | | | | 2019 | | | | | +--------+ + + + + | 10/03/ | Office | Cardiology | Cyril Samuel | | | 2019 | Visit | | MD Patricia [address] | | | | | | [address] | | | | | | [place], [place] | | | | | | [address] | | | | | | [phone] | | | | | | | | +--------+ + + + + documented as of this encounter Visit Diagnoses Not on filedocumented in this encounter"
--- OUTSIDE RECORDS SUMMARY | ~2020-07-29 | XMS | Encounter Summary ---
Demographics + + + | Address | [address] | | | [place] [address] | + + + | Home Phone [...] [place] | | | | | [address] | | + + + + + Care Team Providers + +------+ + | Care Clinical Documentation Clerk Name | Role | Phone | + +------+ + | Sharon David MD | PCP | | + +------+ + Reason for Visit + +--------+ + | Reason | Onset | Comments | | | Date | | + +--------+ + | MELD Score | 08/14/ | | | | 2018 | | + +--------+ + Encounter Details +--------+ + + + + | Date | Type | Department | Care Team | Description | +--------+ + + + + | 08/14/ | Abstract | Clinical | Vimal Crowe MD | MELD Score | | 2019 | | Transplant Services | [address] | | | | | [address] | [address] [place], | | | | | [place], | [place] [address] | | | | | [place] [address] | [phone] | | | | | [phone] | | | +--------+ + + + [...] + documented as of this encounter Progress Amy Jiménez - 08/14/2019 8:08 AM PDTEntry verified in [facility] Waitlist. documented [...] | | | | | | [place], [place] | | | | | | [address] | | | | | | [phone] | | | | | | | | +--------+ + + + + | 09/27/ | Telephone-S | Liver Transplant | Vimal Crowe MD | | | 2019 | [place] | | [address] | | | | | | [address], | | | | | | [place] [address] | | | | | | [phone] | | | | | | | [...] [place] | | | | | | [address] | | | | | | [phone] | | | | | | | | +--------+ + + + + documented as of this encounter Procedures + +--------+ + + + | Procedure Name | Priori | Date/Time | Associated Diagnosis | Comments | | | ty | | | | + +--------+ + + + | LAB OTHER | Routin | 08/14/2019 | | Results for this | | | e | | | procedure are in the | | | | | | results section. | + +--------+ + + + documented in this encounter Results LAB OTHER (08/14/2019) + + + + + + | Component | Value | Ref Range | Performed | Pathologist | | | | | At | Signature | + + + + + + | MELD | 33Comment: Calculated | | CALCULATED | | | | Manually Using [employer] MELD | | MANUALLY | | | | Calculator | | | | + + + + + + + + | Specimen | + + | | + + + + + + + | Performing | Address | City/State/Zipcode | Phone Number | | Organization | | | | + + + + + | CALCULATED | [address] [facility] [facility] [address] | [place], [place] | | | MANUALLY | | | | + + + + + documented in this encounter Visit Diagnoses Not on filedocumented in this encounter"
--- OUTSIDE RECORDS SUMMARY | ~2020-07-29 | XMS | Encounter Summary ---
Demographics + + + | Address | [address] | | | [place] [address] | + + + | Home Phone [...] [place] | | | | | [address] | | + + + + + Care Team Providers + +------+ + | Care Passenger Interline Clerk Name | Role | Phone | + +------+ + | Sharon David MD | PCP | | + +------+ + Encounter Details +--------+ + + + + | Date | Type | Department | Care Team | Description | +--------+ + + + + | 05/18/ | Pharmacy | [facility] | | | | 2020 | Visit | [address] | | | | | | [address] | | | | | | [place] [address] | | | | | | [phone] | | | +--------+ + + + [...] Rd | | | | | | [place], [place] | | | | | | [address] | | | | | | [phone] | | | | | | | | +--------+ + + + + | 09/27/ | Telephone-S | Liver Transplant | Vimal Crowe MD | | | 2019 | [place] | | [address] | | | | | | [address], | | | | | | [place] [address] | | | | | | [phone] | | | | | | | [...] Rd | | | | | | [place] | | | | | | [address] | | | | | | [phone] | | | | | | | | +--------+ + + + + documented as of this encounter Visit Diagnoses Not on filedocumented in this encounter"
--- OUTSIDE RECORDS SUMMARY | ~2020-07-29 | XMS | Encounter Summary ---
Demographics + + + | Address | [address] | | | [place] [address] | + + + | Home Phone [...] [place] | | | | | [address] | | + + + + + Care Team Providers + +------+ + | Care Seed Cleaning Machine Operator Name | Role | Phone | + +------+ + | Sharon David MD | PCP | | + +------+ + Reason for Visit +---------+ + | Reason | Comments | +---------+ + | Post Op | | +---------+ + Office Visit - E/M Services (Routine) +--------+--------+ + + + + | Status | Reason | Specialty | Diagnoses / | Referred By | Referred To | | | | | Procedures | Contact | Contact | +--------+--------+ + + + + | Closed | | Liver | Diagnoses | David, | [facility] | | | | Transplant | Liver | Lohith | Coord Liver | | | | | transplant | MD Lei | [address] | | | | | status | [address] | [facility] | | | | | Procedures | [address] | Rd [place], | | | | | [place] | [place], | [place] | | | | | OFFICE/OUTPT | [place] [address] | [address] | | | | | | Phone: | Phone: | | | | | VISIT,EST,LE | [phone] | [phone] | | | | | VL IV | Fax: | Fax: | | | | | | [phone] | [phone] | +--------+--------+ + + + + Encounter Details +--------+---------+ + + + | Date | Type | Department | Care Team | Description | +--------+---------+ + + + | 09/04/ | Office | Liver Transplant | 3, Ltx | Liver replaced by | | 2019 | Visit | at [facility] [address] | [place], [place] | transplant (HCC) | | | | [address] | [address] | (Primary Dx) | | | | Physician's | | | | | | [place], 2nd floor | | | | | | [place], [place] | | | | | | [address] | | | | | | [phone] | | | +--------+---------+ + + + [...] + + + | Blood Pressure | 147/84 | 09/04/2019 9:38 AM | | | | | PST | | + + + + + | Pulse | 81 | 09/04/2019 9:38 AM | | | | | PST | | + + + + + | Temperature | 36.7 C (98 F) | 09/04/2019 9:38 AM | | | | | PST | | + + + + + | Respiratory Rate | 16 | 09/04/2019 9:38 AM | | | | | PST | | + + + + + | Oxygen Saturation | 100% | 09/04/2019 9:38 AM | | | | | PST | | + + + + + | Inhaled Oxygen | - | - | | | Concentration | | | | + + + + + | Weight | 105.2 kg (232 lb) | 09/04/2019 9:38 AM | | | | | PST | | + + + + + | Height | 180.3 cm (5' 11") | 09/04/2019 9:38 AM | | | | | PST | | + + + + + | Body Mass Index | 32.36 | 09/04/2019 9:38 AM | | | | | PST [...] encounter Progress Notes Pattie Ignacio PA-C - 09/04/2019 9:40 AM PSTFormatting of this note might [...] to be due to systemic heparin. He did not require another dialysis run on and if his labs and renal function continue to improve on Mondays l abs the plan is to stop HD and remove the catheter. Today he states that things are going well. He still is having a lot of lower extremity and scrotal swelling. This limits his mobility somewhat but he is still staying active and walk ing a lot. He has a good appetite and is eating without nausea. The leaking from the incisio n is slowing down and the incision appears clean and dry; ecchymosis is resolving. The leaki ng is mostly old hematoma still but not soaking the dressing any longer. He is having regula r bowel movements and his pain is well controlled. He is using minimal oxycodone (1/2 tablet every evening). Current Outpatient Medications Medication Sig acetaminophen 500 [...] day Indications: type 2 diabetes mellitus Insulin [place] (Disposable) (COMFORT EZ PEN NEEDLES) 31 gauge [...] medications for this visit. Physical: VITALS: BP 147/84 (BP Location: Left upper arm, Patient Position: Sitting) | Pulse 81 | T emp 36.7 C (98 F) (Oral) | Resp 16 | Ht 1.803 m (5' 11") | Wt 105.2 kg (232 lb) | Sp O2 100% | BMI 32.36 kg/m | BSA 2.3 m GENERAL: Alert, no acute distress, well kempt. HEENT: no scleral icterus, no oral plaques or ulcers NECK: no lymphadenopathy CV: regular rate and rhythm, no murmurs RESP: normal work of breathing on room air, clear ABD: soft, non-tender, incision has two spots of leaking of old blood, with a surrounding e cchymosis. No calor, erythema, or purulent drainage. Ext: large amount of edema Neuro: oriented, normal mood, grossly non-focal Labs: Chemistries: Last 72 Hours (or 3 results): Recent Labs 09/03/19 0809 NA 137 K 4.2 CL 102 BICARB 29 BUN 33* CR 1.81* CA 8.6 MG 1.4* PO4 3.6 AST 10 ALT 23 TBILI 0.8 AP 49* ALB 3.7 TP 5.9* CBC with diff last 72 hours (or 3 results) Recent Labs 09/03/19 0809 WBC 5.43 HB 7.6* HCT 23.5* PLT 154 NEUTROPERC 70.2* LYMPHPERC 19.0 MONOPERC 7.7 BASOPERC 1.5 EOSPERC 0.9* Lab Results Component Value Date FK506 6.9 09/03/2019 Assessment: Steffen Duran is a 54 year old male who continues to recover following liver transpl antation. His prograf level is within the target range. Plan: Immunosuppression: I personally participated in the immunosuppression and prophylaxis argenis molina with with patient. Tacrolimus 4 mg po bid, continue Azathoprine, and continue Prednis one taper as described. Date: Total Dose # Tablets, 5mg Hospital Discharge - 08/29/19 20 mg 4 08/30/19 - 09/05/19 15 mg 3 09/06/19 - 09/12/19 10mg 2 09/13/19 -terminal makeup operator dose 5 mg 1 Prophylaxis: Valcyte 450 mg po daily, Fluconazole 400mg every Saturday, MWF. Endocrinology: - Continue NPH 17 units in the AM, and 6 units in PM - Continue Lispro sliding scale four times daily Cardiology: - continue 81 mg of ASA daily - Amiodarone 200 mg daily Fluid status: stable with intermittent HD; patient to discuss lasix and or HD plan with nep hrology Renal: continue HD as needed per outpatient nephrology; will need lasix and fluid status pl an from nephrology once HD is discontinued. Liver: stable graft funciton - no intervention necessary Wound: remove katiuska at next visit Labs: 2 times per week Activity: Continue to increase activity as tolerated. Goal is 30-45 minutes per day. Contin ue 10 pound lifting restriction and hernia precuations. Return to clinic: 1 week with surgeon Authored By: Pattie Ignacio PA-C Abdominal Organ Transplant Surgery documented in this encounter Plan of Treatment +--------+ + + + + | Date | Type | Specialty | Care Team | Description | +--------+ + + + + | 08/08/ | Telephone-S | Nephrology | Angélica Chao, | | | 2019 | [place] | | [address] | | | | | | [address] | | | | | | [place], [place] | | | | | | [address] | | | | | | [phone] | | | | | | | | +--------+ + + + + | 09/27/ | Telephone-S | Liver Transplant | Vimal Crowe MD | | | 2019 | [place] | | [address] | | | | | | [address], | | | | | | [place] [address] | | | | | | [phone] | | | | | | | | +--------+ + + + + | 10/03/ | Appointment | Cardiology | | | | 2019 | | | | | +--------+ + + + + | 10/03/ | Office | Cardiology | Cyril Samuel | | | 2019 | Visit | | MD Patricia [address] | | | | | | [address] | | | | | | [place] | | | | | | [address] | | | | | | [phone] | | | | | | | | +--------+ + + + + documented as of this encounter Visit Diagnoses + + | Diagnosis | + + | Liver replaced by transplant (HCC) - Primary Liver replaced by transplant | + + documented in this encounter
--- OUTSIDE RECORDS SUMMARY | ~2020-07-29 | XMS | Encounter Summary ---
Demographics + + + | Address | [address] | | | [place] [address] | + + + | Home Phone [...] [place] | | | | | [address] | | + + + + + Care Team Providers + +------+ + | Care Plastic Die Maker Apprentice Name | Role | Phone | + +------+ + | Sharon David MD | PCP | | + +------+ + Encounter Details +--------+ + + + + | Date | Type | Department | Care Team | Description | +--------+ + + + + | 08/25/ | Pharmacy | Outpatient Retail | | | | 2018 | Visit | Clinic Pharmacy | | | | | | [address] | | | | | | [address] [place], [place] | | | | | | [address] | | | | | | [phone] | | | +--------+ + + + [...] Rd | | | | | | [place], [place] | | | | | | [address] | | | | | | [phone] | | | | | | | | +--------+ + + + + | 09/27/ | Telephone-S | Liver Transplant | Vimal Crowe MD | | | 2019 | cheduled | | [address] | | | | | | [facility] [place], | | | | | | [place] [address] | | | | | | [phone] | | | | | | | [...] | | | | | | [place], [place] | | | | | | [address] | | | | | | [phone] | | | | | | | | +--------+ + + + + documented as of this encounter Visit Diagnoses Not on filedocumented in this encounter"
--- OUTSIDE RECORDS SUMMARY | ~2020-07-29 | XMS | Encounter Summary ---
Demographics + + + | Address | [address] | | | [place] [address] | + + + | Home Phone [...] [place] | | | | | [address] | | + + + + + Care Team Providers + +------+ + | Care State Farm Agent Team Member Name | Role | Phone | + [...] | | transplant | MD Lei | [address] | | | | | status | [address] | | | | | Procedures | [address] | Rd [place], | | | | | [place] | [place], | [place] | | | | | OFFICE/OUTPT | [place] [address] | [address] | | | | | | Phone: | Phone: | | | | | VISIT,EST,LE | [phone] | [phone] | | | | | VL IV | Fax: | Fax: | | | | | | [phone] | [phone] | +--------+--------+ + + + + Encounter Details +--------+---------+ + + + | Date | Type | Department | Care Team | Description | +--------+---------+ + + + | 11/03/ | Office | Liver Transplant | Pattie Ignacio, | Liver replaced by | | 2020 | Visit | at [facility] [address] | PA-C [address] | transplant (HCC) | | | | [address] | [address] | (Primary Dx) | | | | Physician's | [place], [place] | | | | | [place], 2nd floor | [address] | | | | | [place], [place] | [phone] | | | | | [address] | | | | | | [phone] | | | +--------+---------+ + + + [...] + + + | Blood Pressure | 139/65 | 11/03/2019 10:05 AM | | | | | PST | | + + + + + | Pulse | 69 | 11/03/2019 10:05 AM | | | | | PST | | + + + + + | Temperature | 36.5 C (97.7 F) | 11/03/2019 10:05 AM | | | | | PST | | + + + + + | Respiratory Rate | 14 | 11/03/2019 10:05 AM | | | | | PST | | + + + + + | Oxygen Saturation | 100% | 11/03/2019 10:05 AM | | | | | PST | | + + + + + | Inhaled Oxygen | - | - | | | Concentration | | | | + + + + + | Weight | 88 kg (194 lb) | 11/03/2019 10:05 AM | | | | | PST | | + + + + + | Height | 177.8 cm (5' 10") | 11/03/2019 10:05 AM | | | | | PST | | + + + + + | Body Mass Index | 27.84 | 11/03/2019 10:05 AM | | | [...] encounter Progress Notes Pattie Ignacio PA-C - 11/03/2019 10:20 AM PSTFormatting of this note might be different f rom the original. Hepatobiliary/Transplant Follow up Chief complaint: Liver transplant follow-up History of present illness: Steffen Duran is a 54 year old male who underwent a liver transplant foralcohol angel [place] 08/16/2019.Pre-operatively he had a prolong admission complicated by SVT requi ring amiodarone drip, severe malnutrition, KAR/HRS, and spur cell anemia.His post operativ e course wascomplicated byrenal dysfunctionrequiring dialysis,andpersistent ascite s/anasarca. His last run ofHD on 09/01. The dialysis catheter was removed on 09/15. Most recently the patient was admitted from 10/12-10/27 for failure to thrive, SVT, and KAR . Since discharge he has done well, getting his labs and making his clinic visits. He is ezequiel nning to return to [place], [place] at the beginning of November; he is hoping to get a new apa rtment and should know more at the end of the week. He is excited to be moving back home/out of [place]. He has a list of all his upcoming appointments and is keeping on top of his tx dications. Overall, he is improved from last month. Current Outpatient Medications Medication Sig Alcohol Swabs [...] Indicati ons: type 2 diabetes mellitus Insulin [place] (Disposable) (COMFORT EZ PEN NEEDLES) 31 gauge [...] the evening. Indicat ions: lack of appetite tacrolimus 1 mg oral capsule Take 4 capsules by mouth two times daily. Indications: niels er transplant rejection prevention valGANciclovir 450 mg oral tablet Take 1 tablet by mouth once daily. Indications: viral infection prevention No current facility-administered medications for this visit. Physical: VITALS: BP 139/65 (BP Location: Left upper arm, Patient Position: Sitting) | Pulse 69 | T emp 36.5 C (97.7 F) (Oral) | Resp 14 | Ht 1.778 m (5' 10") | Wt 88 kg (194 lb) | SpO 2 100% | BMI 27.84 kg/m | BSA 2.08 m GENERAL: Alert, no acute distress, well kempt. HEENT: no scleral icterus, no oral plaques or ulcers NECK: no lymphadenopathy CV: regular rate and rhythm, no murmurs RESP: normal work of breathing on room air, clear ABD: soft, non-tender, well healed incision Ext: mild edema in his feet Neuro: oriented, normal mood, grossly non-focal Labs: [...] 6.6* Lab Results Component Value Date FK506 4.4 (L) 11/02/2019 Assessment: Steffen Duran is a 54 year old male who continues to recover following liver transpl antation. His prograf level is below the target range. Plan: Immunosuppression: I personally participated in the immunosuppression and prophylaxis manag ement with with patient. Increased Tacrolimus to 4 mg po bid, holding MMF, and Prednisone st opped in hospital Prophylaxis: Valcyte 450 mg po daily, Fluconazole 400 mg po q Saturday, Atovaquone daily Diabetes: continue glimepiride and lispro Cardiac: amiodarone, metoprolol Osteoporosis: continue supplemental calcium with vitamin D [...] restriction and hernia precuations. Return to clinic: at 3 months following transplant with Hepatology Authored By: Pattie Ignacio PA-C Abdominal Organ Transplant Surgery documented in this encounter Plan of Treatment +--------+ + + + + | Date | Type | Specialty | Care Team | Description | +--------+ + + + + | 08/08/ | Telephone-S | Nephrology | Angélica Chao, | | 2019 | [place] | | [address] | | | | | | [address] | | | | | | [place], [place] | | | | | | [address] | | | | | | [phone] | | | | | | | | +--------+ + + + + | 09/27/ | Telephone-S | Liver Transplant | Vimal Crowe MD | | | 2019 | cheduled | | [address] | | | | | | [address], | | | | | | [place] [address] | | | | | | [phone] | | | | | | | | +--------+ + + + + | 10/03/ | Appointment | Cardiology | | | | 2019 | | | | | +--------+ + + + + | 10/03/ | Office | Cardiology | Cyril Samuel | | | 2019 | Visit | | MD Patricia [address] | | | | | | [address] | | | | | | [place], [place] | | | | | | [address] | | | | | | [phone] | | | | | | | | +--------+ + + + + documented as of this encounter Visit Diagnoses + + | Diagnosis | + + | Liver replaced by transplant (HCC) - Primary Liver replaced by transplant | + + documented in this encounter
--- OUTSIDE RECORDS SUMMARY | ~2020-07-29 | XMS | Encounter Summary ---
Demographics + + + | Address | [address] | | | [place] [address] | + + + | Home Phone [...] [place] | | | | | [address] | | + + + + + Care Team Providers + +------+ + | Care Diesel Engine Assembler Name | Role | Phone | + +------+ + | Sharon David MD | PCP | | + +------+ + Reason for Visit + +--------+ + | Reason | Onset | Comments | | | Date | | + +--------+ + | Social Work Notes | 05/03/ | | | | 2020 | | + +--------+ + Encounter Details +--------+ + + + + | Date | Type | Department | Care Team | Description | +--------+ + + + + | 05/03/ | Telephone | Liver Transplant | Liv Stephenson, | Social Work Notes | | 2020 | | at [facility] [address] | WEATHERSTRIP MACHINE OPERATOR [address] | | | | | [address] | [address] | | | | | [address] | [place], [place] | | | | | [place], [place] | [address] | | | | | [address] | [phone] | | | | | [phone] | | | +--------+ + + + [...] Miscellaneous Notes Telephone Encounter - Liv Stephenson, WEATHERSTRIP MACHINE OPERATOR - 05/03/2020 8:14 AM PDTSocial Work Note: Navigation Teacher received letter from donor family. Navigation Teacher called and left message for pt to return c all and note if he wanted letter sent and confirm address. Pt returned call confirmed address and would like the letter mailed. Letter was send out to day. Liv Stephenson LCSW Liver Transplant Employee Counselor Pager [phone] documented in this encounter Plan of Treatment +--------+ + + + + | Date | Type | Specialty | Care Team | Description | +--------+ + + + + | 08/08/ | Telephone-S | Nephrology | Angélica Chao, | | | 2019 | cherohini | | [address] | | | | | | [address] | | | | | | [place], [place] | | | | | | [address] | | | | | | [phone] | | | | | | | | +--------+ + + + + | 09/27/ | Telephone-S | Liver Transplant | Vimal Crowe MD | | 2019 | cheduled | | [address] | | | | | | [address], | | | | | | [place] [address] | | | | | | [phone] | | | | | | | | +--------+ + + + + | 10/03/ | Appointment | Cardiology | | | | 2019 | | | | | +--------+ + + + + | 10/03/ | Office | Cardiology | Cyril Samuel | | | 2019 | Visit | | MD Patricia [address] [facility] | | | | | | [address] | | | | | | [place] | | | | | | [address] | | | | | | [phone] | | | | | | | | +--------+ + + + + documented as of this encounter Visit Diagnoses Not on filedocumented in this encounter"
--- OUTSIDE RECORDS SUMMARY | ~2020-07-29 | XMS | Encounter Summary ---
Demographics + + + | Address | [address] | | | [place] [address] | + + + | Home Phone [...] [place] | | | | | [address] | | + + + + + Care Team Providers + +------+ + | Care Metals Analyst Name | Role | Phone | [...] + + | 05/09/ | Refill | Clinical | Una Anthony MD | Refill Request | | 2020 | | Transplant Services | [address] | | | | | [address] | [place], | | | | | [place], | [place] [address] | | | | | [place] [address] | [phone] | | | | | [phone] | | | +--------+--------+ + + + [...] [place] | | | | | | [address] | | | | | | [phone] | | | | | | | | +--------+ + + + + | 09/27/ | Telephone-S | Liver Transplant | Vimal Crowe MD | | | 2019 | cheduled | | [address] | | | | | | [address], | | | | | | [place] [address] | | | | | | [phone] | | | | | | | [...] [address] | | | | | | [place] | | | | | | [address] | | | | | | [phone] | | | | | | | | +--------+ + + + + documented as of this encounter Visit Diagnoses Not on filedocumented in this encounter"
--- OUTSIDE RECORDS SUMMARY | ~2020-07-29 | XMS | Encounter Summary ---
Demographics + + + | Address | [address] | | | [place] [address] | + + + | Home Phone [...] [place] | | | | | [address] | | + + + + + Care Team Providers + +------+ + | Care Medical Imaging Tech Name | Role | Phone | + +------+ + | Sharon David MD | PCP | | + +------+ + Encounter Details +--------+ + + + + | Date | Type | Department | Care Team | Description | +--------+ + + + + | 07/06/ | Pharmacy | Pharmacy @ [facility] | | | | 2019 | Visit | [address] | | | | | [address] Mailcode: | | | | | | [facility] | | | | | | and Healing, | | | | | | [address] | | | | | | [place], [place] | | | | | | [address] | | | +--------+ + + + [...] [address] | | | | | | [place], [place] | | | | | | [address] | | | | | | [phone] | | | | | | | | +--------+ + + + + | 09/27/ | Telephone-S | Liver Transplant | Vimal Crowe MD | | | 2019 | [place] | | [address] | | | | | | [facility] [place], | | | | | | [place] [address] | | | | | | [phone] | | | | | | | [...] | | | | | | [place], [place] | | | | | | [address] | | | | | | [phone] | | | | | | | | +--------+ + + + + documented as of this encounter Visit Diagnoses Not on filedocumented in this encounter"
--- OUTSIDE RECORDS SUMMARY | ~2020-07-29 | XMS | Encounter Summary ---
Demographics + + + | Address | [address] | | | [place] [address] | + + + | Home Phone [...] [place] | | | | | [address] | | + + + + + Care Team Providers + +------+ + | Care Fast Food Sales Assistant Name | Role | Phone | + +------+ + | Ignacio Caldwell MD | PCP | | + +------+ + Encounter Details +--------+ + + + + | Date | Type | Department | Care Team | Description | +--------+ + + + + | 05/25/ | Office | [facility] | Note, [...] as of this encounter Progress Notes Interface, Route Delivery Driver In - 10/04/2006 3:12 AM PSTCLINIC DATE: 05/25/1999 I called Steffen back and left a voice mail and then he returned my call at 3:30 pm on 05/25/99. He stated that he did see his primary care physician and they did diagnose him with an infection around the pins. He stated that he was given a prescription which he had turned in at the pharmacy and was not sure what it was called, but he was told that it was related to penicillin and stated it started with a V. I instructed him that if he did not see any improvement over the next few days, he needed to call the hospital here and get a hold of the resident front end software developer or go back to see his primary care physician, to not let this infection get out of hand. I will talk with Dr. Velasquez about this on his return Saturday and see if he would like to bring Steffen in sooner. Steffen states that his follow-up with Dr. Velasquez is scheduled for July 04, 1999. Brittni Henderson A [id number] signed by Interface, Route Delivery Driver In at 10/04/2006 3:12 AM PSTInterf joaquin, Route Delivery Driver In - 10/04/2006 3:12 AM PSTTELEPHONE: 05/25/1999 On 05/24/99 he left a voice mail at 4:08 in the afternoon stating that he thought he had an infection around his pins. I called him back the next morning when I arrived in the clinic to ask him some questions. He stated that he thought he had had a fever the night before, but that it was gone now. He did describe some drainage that he said appeared to be pus, and some redness around the pins. He was not on any antibiotics. The patient stated that he was wondering what he should do. Dr. Correa was consulted and we advised him to go to his primary care physician, since he was out in the [place] area, and quite a ways from the clinic. They will evaluate the situation there. I told Steffen that we could have the primary care physician call here and talk to the resident front end software developer, since Dr. Velasquez is not available today, if they need some further information. We ended this conversation with a plan that I would call back and talk with him to find out what had transpired. When I did call back at 2:00 in the afternoon, I got a voice mail and left him a lengthy message with my number, [phone], to call me and let me know what has happened at this appointment. SERAFIN Henderson P C: 05/26/99 sak [id number] signed by Interface, Route Delivery Driver In at 10/04/2006 3:12 AM PSTdocume nted in this encounter Plan of Treatment [...] [address] | | | | | | [place], [place] | | | | | | [address] | | | | | | [phone] | | | | | | | | +--------+ + + + + | 09/27/ | Telephone-S | Liver Transplant | Vimal Crowe MD | | | 2019 | [place] | | [address] | | | | | | [address], | | | | | | [place] [address] | | | | | | [phone] | | | | | | | [...] [place] | | | | | | [address] | | | | | | [phone] | | | | | | | | +--------+ + + + + documented as of this encounter Visit Diagnoses Not on filedocumented in this encounter"
--- OUTSIDE RECORDS SUMMARY | ~2020-07-29 | XMS | Encounter Summary ---
Demographics + + + | Address | [address] | | | [place] [address] | + + + | Home Phone [...] [place] | | | | | [address] | | + + + + + Care Team Providers + +------+ + | Care Direct Chill Caster Name | Role | Phone | + [...] [address] | [address] | Transplant | | | | [facility] | [place], [place] | | | | | and Healing, | [address] | | | | | | [phone] | | | | | Floor [place], [place] | | | | | | [address] | | | | | | [phone] | | | +--------+ + + + [...] | | 2020 | [place] | | [address] | | | | | | [address] | | | | | | [place], [place] | | | | | | [address] | | | | | | [phone] | | | | | | | | +--------+ + + + + | 09/27/ | Telephone-S | Liver Transplant | Vimal Crowe MD | | | 2019 | [place] | | [address] | | | | | | [address], | | | | | | [place] [address] | | | | | | [phone] | | | | | | | | +--------+ + + + + | 10/03/ | Appointment | Cardiology | | | | 2019 | | | | | +--------+ + + + + | 10/03/ | Office | Cardiology | Cyril Samuel | | | 2019 | Visit | | MD Patricia [address] | | | | | | [address] | | | | | | [place], [place] | | | | | | [address] | | | | | | [phone] | | | | | | | | +--------+ + + + + documented as of this encounter Visit Diagnoses Not on filedocumented in this encounter"
--- OUTSIDE RECORDS SUMMARY | ~2020-07-29 | XMS | Encounter Summary ---
Demographics + + + | Address | [address] | | | [place] [address] | + + + | Home Phone [...] [place] | | | | | [address] | | + + + + + Care Team Providers + +------+ + | Care Cone Operator Name | Role | Phone | + +------+ + PCP | Unavailable | + +------+ + Encounter Details +--------+ + + + + | Date | Type | Department | Care Team | Description | +--------+ + + + + | 03/19/ | Results | | Francine Soria | | | 1998 | Only | | [address] | | | | | | [place], | | | | | | [place] [address] | | +--------+ + + + + [...] Rd | | | | | | [place], [place] | | | | | | [address] | | | | | | [phone] | | | | | | | | +--------+ + + + + | 09/27/ | Telephone-S | Liver Transplant | Vimal Crowe MD | | | 2019 | [place] | | [address] | | | | | | [address], | | | | | | [place] [address] | | | | | | [phone] | | | | | | | | +--------+ + + + + | 10/03/ | Appointment | Cardiology | | | | 2019 | | | | | +--------+ + + + + | 10/03/ | Office | Cardiology | Cyril Saumel | | | 2019 | Visit | | MD Patricia [address] [facility] | | | | | | [address] | | | | | | [place], [place] | | | | | | [address] | | | | | | [phone] | | | | | | | | +--------+ + + + + documented as of this encounter Procedures + +--------+ + + + | Procedure Name | Priori | Date/Time | Associated Diagnosis | Comments | | | ty | | | | + +--------+ + + + | TIBIA AND FIBULA, 2 | Routin | 03/28/1999 | | Results for this | | VIEWS | e | 10:40 AM | | procedure are in the | | | | PDT | | results section. | + +--------+ + + + | CT EXTREMITY, LOWER | Routin | 03/23/1999 | | Results for this | | | e | 3:50 PM | | procedure are in the | | | | PDT | | results section. | + +--------+ + + + | CT EXTREMITY, LOWER | Routin | 03/22/1999 | | Results for this | | | e | 11:10 AM | | procedure are in the | | | | PDT | | results section. | + +--------+ + + + | KNEE, 2 VIEWS | Routin | 03/22/1999 | | Results for this | | | e | 9:38 AM | | procedure are in the | | | | PDT | | results section. | + +--------+ + + + | TIBIA AND FIBULA, 2 | Routin | 03/19/1999 | | Results for this | | VIEWS | e | 11:03 PM | | procedure are in the | | | | PDT | | results section. | + +--------+ + + + | X-RAY SPINE THORACIC | Routin | 03/19/1999 | | Results for this | | 2 VIEWS | e | 3:42 PM | | procedure are in the | | | | PDT | | results section. | + +--------+ + + + documented in this encounter Results TIBIA AND FIBULA, 2 VIEWS (03/28/1999 10:40 AM PDT) + + + + + + | Component | Value | Ref Range | Performed | Pathologist | | | | | At | Signature | + + + + + + | TIBIA AND | Radiologist 1: NADIR, | | | | | FIBULA, 2 | RABIA, | | | | | VIEWS | M.D.-Radiologist 2: | | | | | | DOUG DIAZ, | | | | | | M.D.TIBIA AND FIBULA TWO | | | | | | VIEWS: 03/28/99 | | | | | | Dictated: 04/02/99 | | | | | | FINDINGS: There is an | | | | | | Ilizarov external | | | | | | fixation device which | | | | | | obscuresthe | | | | | | visualization of the | | | | | | comminuted tibial | | | | | | plateau and | | | | | | proximalfibular | | | | | | fractures. No | | | | | | comparison films are | | | | | | available to assess | | | | | | forinterval change in | | | | | | alignment. The | | | | | | articular surfaces of | | | | | | the medialand lateral | | | | | | knee joints are not | | | | | | completely visualized. | | | | | | IMPRESSION: Status post | | | | | | Ilizarov external | | | | | | fixation of right | | | | | | proximal fibular | | | | | | andcomminuted tibial | | | | | | plateau fracture. END | | | | | | OF IMPRESSION: | | | | + + + + + + + + | Specimen | + + | | + + + +---------+ + + | Performing | Address | City/State/Zipcode | Phone Number | | Organization | | | | + +---------+ + + | [facility] DEPARTMENT OF | | | | | RADIOLOGY | | | | + +---------+ + + CT EXTREMITY, LOWER (03/23/1999 3:50 PM PDT) + + + + + + | Component | Value | Ref Range | Performed | Pathologist | | | | | At | Signature | + + + + + + | CT | Radiologist 1: ELIA, | | | | | EXTREMITY, | Kianna GUEVARA-Radiologist | | | | | LOWER | 2: PAOLA RODRIGEZ, | | | | | | KiannaCOMPUTERIZED | | | | | | TOMOGRAPHY RIGHT LOWER | | | | | | EXTREMITY: 03/23/99 | | | | | | [id number] hours | | | | | | Dictated: 03/24/99 | | | | | | COMPARISON: CT right | | | | | | lower extremity from | | | | | | 03/22/99. HISTORY: | | | | | | This is a 34-year-old | | | | | | male with proximal | | | | | | tibial and | | | | | | fibularfractures. | | | | | | TECHNIQUE: Contiguous | | | | | | 3 mm transaxial images | | | | | | are obtained through | | | | | | theknee. Reformations | | | | | | are done in the sagittal | | | | | | and coronal planes. | | | | | | FINDINGS: The external | | | | | | fixation device has | | | | | | been removed from the | | | | | | midtibial diaphysis. | | | | | | There is a markedly | | | | | | comminuted fracture of | | | | | | theproximal tibia with | | | | | | extension into the | | | | | | medial and lateral | | | | | | tibialplateau. The | | | | | | posterior medial aspect | | | | | | of the plateau is | | | | | | depressedapproximately 2 | | | | | | to 3 mm. There also | | | | | | is a comminuted fracture | | | | | | of theintercondylar | | | | | | eminence. The fracture | | | | | | extends distally through | | | | | | theposterior tibia and | | | | | | exits the anterior | | | | | | cortex of the | | | | | | proximaldiaphysis. | | | | | | There is at least one | | | | | | posterior fragment which | | | | | | isdisplaced into the | | | | | | medullary canal. The | | | | | | tibial tubercle and a | | | | | | smalldistal fragment are | | | | | | laterally displaced a | | | | | | few centimeters. The | | | | | | maindistal fragment is | | | | | | medially displaced | | | | | | approximately 80% with | | | | | | varusangulation. There | | | | | | is adjacent marked | | | | | | comminution of the | | | | | | fibular head. Gas is | | | | | | seenwithin the | | | | | | comminuted tibia | | | | | | fracture and in the soft | | | | | | tissues, which islikely | | | | | | secondary to nitrogen | | | | | | extracted from the | | | | | | interstitial fluidcaused | | | | | | by distraction at the | | | | | | time of injury. | | | | | | Alternatively it | | | | | | couldbe from an open | | | | | | fracture. The patella | | | | | | and distal femur are | | | | | | unremarkable. | | | | | | IMPRESSION: 1. | | | | | | Markedly comminuted | | | | | | fracture of the tibial | | | | | | metadiaphysis | | | | | | extendingproximally into | | | | | | the medial and lateral | | | | | | tibial plateau. The | | | | | | externaltibial fixator | | | | | | has been removed. | | | | | | Alignment is | | | | | | unchanged. 2. | | | | | | Associated comminuted | | | | | | fracture of the proximal | | | | | | fibula. END OF | | | | | [...] | | + +---------+ + + CT EXTREMITY, LOWER (03/22/1999 11:10 AM PDT) + + + + + + | Component | Value | Ref Range | Performed | Pathologist | | | | | At | Signature | + + + + + + | CT | Radiologist 1: PHU, | | | | | EXTREMITY, Darren GILES, | | | | | LOWER | M.D.-Radiologist 2: | | | | | | Coleman SUAZO, | | | | | | M.D.COMPUTERIZED | | | | | | TOMOGRAPHY OF THE RIGHT | | | | | | LOWER EXTREMITY: | | | | | | 03/22/99. Dictated | | | | | | 03/22/99 COMPARISON: | | | | | | Comparison is made | | | | | | with prior plane films. | | | | | | HISTORY: | | | | | | Aeksim-ovlg-xmpf-old | | | | | | male with proximal | | | | | | tibial and | | | | | | fibularfractures. | | | | | | Evaluate extent. | | | | | | TECHNIQUE: Contiguous 3 | | | | | | mm transaxial images | | | | | | were obtained through | | | | | | theknee. Sagittal and | | | | | | coronal reformations | | | | | | were performed. | | | | | | FINDINGS: An external | | | | | | fixation device is in | | | | | | place with three | | | | | | screwsentering the mid | | | | | | tibial diaphysis. | | | | | | There is a markedly | | | | | | comminutedfracture of | | | | | | the proximal tibial | | | | | | diametaphysis. There | | | | | | is | | | | | | extensivefragmentation | | | | | | with a single, large, | | | | | | posterior fragment | | | | | | displaced intothe | | | | | | medullary canal. There | | | | | | is approximately 80% | | | | | | medial displacementand | | | | | | varus angulation of the | | | | | | distal fracture | | | | | | fragment. Multiple | | | | | | airbubbles are seen | | | | | | within the fracture | | | | | | site. Fracture lines | | | | | | extendproximally, | | | | | | resulting in a | | | | | | bicondylar tibial | | | | | | plateau fracture. | | | | | | Thereis approximately | | | | | | 2 mm of depression of | | | | | | the posteromedial aspect | | | | | | of theplateau. | | | | | | Fracture line extends | | | | | | through the tibial | | | | | | spines, and a smallbony | | | | | | fragment lies within the | | | | | | intercondylar notch. | | | | | | The medial andlateral | | | | | | joint spaces are | | | | | | congruent. There is | | | | | | adjacent marked | | | | | | comminution of the | | | | | | fibular head. An | | | | | | air-fluid level is seen | | | | | | within the knee joint. | | | | | | There is nofracture of | | | | | | the patella or distal | | | | | | femur. IMPRESSION: 1. | | | | | | Markedly comminuted | | | | | | fracture of the tibial | | | | | | diametaphysis, | | | | | | whichextends proximally | | | | | | into a bicondylar | | | | | | plateau fracture. | | | | | | There is asingle bony | | | | | | fragment within the | | | | | | joint. There is an | | | | | | associatedcomminuted | | | | | | fracture of the fibular | | | | | | head. 2. Status post | | | | | | external fixation. 3. | | | | | | Air-fluid level within | | | | | | the knee joint. END | | | | | | [...] + +---------+ + + KNEE, 2 VIEWS (03/22/1999 9:38 AM PDT) + + + + + + | Component | Value | Ref Range | Performed | Pathologist | | | | | At | Signature | + + + + + + | KNEE, 2 | Radiologist 1: | | | | | VIEWS | ADRIÁN YATES, | | | | | | M.D.-Radiologist 2: | | | | | | ADRIÁN YATES, | | | | | | M.D. TWO VIEWS OF RIGHT | | | | | | KNEE: 03/22/99 at 0938 | | | | | | hours. Dictated | | | | | | 03/22/99 COMPARISON: | | | | | | March 19, 1999. CLINICAL | | | | | | HISTORY: Postoperative | | | | | | film. FINDINGS: Again | | | | | | noted is the severely | | | | | | comminuted fracture of | | | | | | thetibial metapysis | | | | | | extending into a | | | | | | bicondylar tibial | | | | | | plateau fracture.The | | | | | | external fixation device | | | | | | remains in place with | | | | | | three screwsentering the | | | | | | distal femur. Since the | | | | | | prior study, the | | | | | | angulation ofthe distal | | | | | | fracture fragment has | | | | | | shifted from valgus to | | | | | | mild varus.Lateral | | | | | | displacement has | | | | | | decreased from 50% to | | | | | | 30%. The appearance | | | | | | ofthe comminuted | | | | | | fracture of the fibular | | | | | | head is unchanged. | | | | | | Anair-fluid level is | | | | | | seen beneath the patella | | | | | | on the | | | | | | shoot-throughlateral | | | | | | view. IMPRESSION: 1. | | | | | | Comminuted metaphyseal | | | | | | tibial and fibular | | | | | | fractures, with | | | | | | intervalchange in | | | | | | alignment of the distal | | | | | | tibial fragment from | | | | | | valgus to mildvarus. 2. | | | | | | External fixation | | | | | | device remains in place. | | | | | | TWO VIEW TIBIA AND | | | | | | FIBULA: 03/19/99 at 2100 | | | | | | hours. Dictated | | | | | | 03/22/99 FINDINGS: There | | | | | | is a comminuted | | | | | | bicondylar tibial | | | | | | plateau | | | | | | fracture,extending into | | | | | | the diametaphysis. There | | | | | | is 50%lateral and 10% | | | | | | posterior displacement | | | | | | of the distal | | | | | | fracturefragment. | | | | | | There is mild valgus | | | | | | angulation of the distal | | | | | | tibialfragment. There | | | | | | is also a comminution | | | | | | of the fibular head with | | | | | | [id number]% medial | | | | | | displacement. An | | | | | | external fixation device | | | | | | is in place withthree | | | | | | screws entering the | | | | | | tibial diaphysis. An | | | | | | overlying splint | | | | | | obscures fine bony | | | | | | detail. The ankle is | | | | | | grosslyintact. | | | | | | IMPRESSION: Comminuted | | | | | | bicondylar tibial | | | | | | plateau fracture and | | | | | | comminuted | | | | | | fibulafracture; status | | | | | | post external fixation. | | | | | | END [...] + + TIBIA AND FIBULA, 2 VIEWS (03/19/1999 11:03 PM PDT) + + + + + + | Component | Value | Ref Range | Performed | Pathologist | | | | | At | Signature | + + + + + + | TIBIA AND | Radiologist 1: | | | | | FIBULA, 2 | ADRIÁN YATES, | | | | | VIEWS | M.D.-Radiologist 2: | | | | | | ADRIÁN YATES, | | | | | | M.D. TWO VIEWS OF RIGHT | | | | | | KNEE: 03/22/99 at 0938 | | | | | | hours. Dictated | | | | | | 03/22/99 COMPARISON: | | | | | | March 19, 1999. CLINICAL | | | | | | HISTORY: Postoperative | | | | | | film. FINDINGS: Again | | | | | | noted is the severely | | | | | | comminuted fracture of | | | | | | thetibial metapysis | | | | | | extending into a | | | | | | bicondylar tibial | | | | | | plateau fracture.The | | | | | | external fixation device | | | | | | remains in place with | | | | | | three screwsentering the | | | | | | distal femur. Since the | | | | | | prior study, the | | | | | | angulation ofthe distal | | | | | | fracture fragment has | | | | | | shifted from valgus to | | | | | | mild varus.Lateral | | | | | | displacement has | | | | | | decreased from 50% to | | | | | | 30%. The appearance | | | | | | ofthe comminuted | | | | | | fracture of the fibular | | | | | | head is unchanged. | | | | | | Anair-fluid level is | | | | | | seen beneath the patella | | | | | | on the | | | | | | shoot-throughlateral | | | | | | view. IMPRESSION: 1. | | | | | | Comminuted metaphyseal | | | | | | tibial and fibular | | | | | | fractures, with | | | | | | intervalchange in | | | | | | alignment of the distal | | | | | | tibial fragment from | | | | | | valgus to mildvarus. 2. | | | | | | External fixation | | | | | | device remains in place. | | | | | | TWO VIEW TIBIA AND | | | | | | FIBULA: 03/19/99 at 2100 | | | | | | hours. Dictated | | | | | | 03/22/99 FINDINGS: There | | | | | | is a comminuted | | | | | | bicondylar tibial | | | | | | plateau | | | | | | fracture,extending into | | | | | | the diametaphysis. There | | | | | | is 50%lateral and 10% | | | | | | posterior displacement | | | | | | of the distal | | | | | | fracturefragment. | | | | | | There is mild valgus | | | | | | angulation of the distal | | | | | | tibialfragment. There | | | | | | is also a comminution | | | | | | of the fibular head with | | | | | | [id number]% medial | | | | | | displacement. An | | | | | | external fixation device | | | | | | is in place withthree | | | | | | screws entering the | | | | | | tibial diaphysis. An | | | | | | overlying splint | | | | | | obscures fine bony | | | | | | detail. The ankle is | | | | | | grosslyintact. | | | | | | IMPRESSION: Comminuted | | | | | | bicondylar tibial | | | | | | plateau fracture and | | | | | | comminuted | | | | | | fibulafracture; status | | | | | | post external fixation. | | | | | | END OF IMPRESSION: | | | | + + + + + + + + | Specimen | + + | | + + + +---------+ + + | Performing | Address | City/State/Zipcode | Phone Number | | Organization | | | | + +---------+ + + | [facility] DEPARTMENT OF | | | | | RADIOLOGY | | | | + +---------+ + + SPINE THORACIC 2 VIEWS (03/19/1999 3:42 PM PDT) + + + + + + | Component | Value | Ref Range | Performed | Pathologist | | | | | At | Signature | + + + + + + | SPINE | Radiologist 1: MEJIA | | | | | THORACIC 2 | CYNDEE Flor, | | | | | VIEWS | M.DCedric-Radiologist 2: | | | | | | JENNIFER SANCHES, | | | | | | M.D.THORACIC SPINE, AP | | | | | | AND LATERAL: 03/19/99 at | | | | | | 1542 hours. | | | | | | Dictated on 03/20/99 | | | | | | FINDINGS: There is | | | | | | anterior compression | | | | | | deformity of T11 and | | | | | | T12. Theother | | | | | | vertebral body heights | | | | | | and intervertebral disc | | | | | | spaces aremaintained. | | | | | | The soft tissues are | | | | | | unremarkable. The | | | | | | visualized ribsare | | | | | | intact. IMPRESSION: | | | | | | Compression deformity | | | | | | with approximately 50% | | | | | | loss of vertebral | | | | | | bodyheight primarily | | | | | | anteriorly involving T11 | | | | | | and T12. END OF | | | | | | IMPRESSION: | | | | + + + + + + + + | Specimen | + + | | + + + +---------+ + + | Performing | Address | City/State/Zipcode | Phone Number | | Organization | | | | + +---------+ + + | [facility] DEPARTMENT OF | | | | | RADIOLOGY | | | | + +---------+ + + documented in this encounter Visit Diagnoses Not on filedocumented in this encounter"
--- OUTSIDE RECORDS SUMMARY | ~2020-07-29 | XMS | Encounter Summary ---
Demographics + + + | Address | [address] | | | [place] [address] | + + + | Home Phone [...] [place] | | | | | [address] | | + + + + + Care Team Providers + +------+ + | Care Pin Chaser Name | Role | Phone | + +------+ + | Sharon David MD | PCP | | + +------+ + Encounter Details +--------+ + + + + | Date | Type | Department | Care Team | Description | +--------+ + + + + | 11/27/ | Pharmacy | [facility] | | | | 2020 | Visit | [address] | | | | | [address] | | | | | | [place] [address] | | | | | | [phone] | | | +--------+ + + + [...] Rd | | | | | | [place], [place] | | | | | | [address] | | | | | | [phone] | | | | | | | | +--------+ + + + + | 09/27/ | Telephone-S | Liver Transplant | Vimal Crowe MD | | | 2019 | [place] | | [address] | | | | | | [address], | | | | | | [place] [address] | | | | | | [phone] | | | | | | | [...] Rd | | | | | | [place] | | | | | | [address] | | | | | | [phone] | | | | | | | | +--------+ + + + + documented as of this encounter Visit Diagnoses Not on filedocumented in this encounter"
--- OUTSIDE RECORDS SUMMARY | ~2020-07-29 | XMS | Encounter Summary ---
Demographics + + + | Address | [address] | | | [place] [address] | + + + | Home Phone [...] [place] | | | | | [address] | | + + + + + Care Team Providers + +------+ + | [employer] Name | Role | Phone | [...] | | | [address] | [facility] | | | | | [address] | [place], [place] | | | | | [place], [facility] floor | [address] | | | | | [place], [place] | [phone] | | | | | [address] | | | | | | [phone] | | | +--------+ + + + [...] | | 2019 | [place] | | [address] | | | | | | [address] | | | | | | [place], [place] | | | | | | [address] | | | | | | [phone] | | | | | | | | +--------+ + + + + | 09/27/ | Telephone-S | Liver Transplant | Vimal Crowe MD | | | 2019 | [place] | | [address] | | | | | | [address], | | | | | | [place] [address] | | | | | | [phone] | | | | | | | [...] Rd | | | | | | [place], [place] | | | | | | [address] | | | | | | [phone] | | | | | | | | +--------+ + + + + documented as of this encounter Visit Diagnoses Not on filedocumented in this encounter"
--- OUTSIDE RECORDS SUMMARY | ~2020-07-29 | XMS | Encounter Summary ---
Demographics + + + | Address | [address] | | | [place] [address] | + + + | Home Phone [...] [place] | | | | | [address] | | + + + + + Care Team Providers + +------+ + | Care Pulp Mixer Name | Role | Phone | + +------+ + | Sharon David MD | PCP | | + +------+ + Reason for Visit + + + | Reason | Comments | + + + | Follow-up visit | | + + + Benefits Check (Routine) +--------+--------+ + + + + | Status | Reason | Specialty | Diagnoses / | Referred By | Referred To | | | | | Procedures | Contact | Contact | +--------+--------+ + + + + | Closed | | Nephrology | | David, | Nht Nephro | | | | | | [facility] | [facility] [address] | | | | | | MD Lei | [address] | | | | | | [address] | | | | | | [address] | [address], | | | | | | [place], | 3rd floor | | | | | | [place] [address] | [place], [place] | | | | | | Phone: | [phone] | | | | | | [phone] | Phone: | | | | | | Fax: | [phone] | | | | | | [phone] | Fax: | | | | | | | [phone] | +--------+--------+ + + + + Encounter Details +--------+ + + + + | Date | Type | Department | Care Team | Description | +--------+ + + + + | 02/18/ | Telephone-S | Nephrology & | Angélica Chao, | Follow-up visit | | 2020 | cheduled | [facility]pertension at [facility] | MD [address] | | | | | [address] | [facility] | | | | | Loop Physician's | [place], [place] | | | | | [place], 3rd floor | [address] | | | | | [place], [place] | [phone] | | | | | [address] | | | | | | [phone] | | | +--------+ + + + [...] Instructions Patient Instructions Angélica Chao MD - 02/16/2020 3:30 PM PDT1. I'm ordering a new me dicine to help with potassium. I have to see if your insurance will approve it. If they do, I'll recommend you take it twice a week to see if we control your potassium better. If insur anne-marie won't cover it, I will order kayexalate (sodium polystyrene) for once a week. We can ca ll you with what we learn and convey next steps. 2. Please be careful with potassium intake in the next couple of days while we sort out merlyn t medication piece. 3. I will order a chest xray for [facility]. My office will find out how this is sc heduled and will let you know. 4. I do think cutting back on milk may help. 5. Please weigh yourself daily for a week. documented in this encounter Progress Notes Angélica Chao MD - 02/16/2020 3:30 PM PDTFormatting of this note might be different fr om the original. Patient agrees to a telephone encounter for today's visit. They understand they may be resp onsible for the balance after insurance processes the claim. The visit took place via telephone with the provider located at the distant site of [facility]. T he patient stated they were located at the originating site of home and were in the [facility] at the time of the telephone visit. The names of all persons participating in the judy paulino visit and their roles are: Angélica Chao, Donell Roger. Time spent on the call: 29 min. The patients encounter was accomplished via a telephone call today due to COVID-19 precauti onary measures to limit the patient's unnecessary exposure. Date of service: 02/16/2020 10:17 AM Reason for visit: F/u KAR ASSESSMENT:Mr. Duran is a 54 yo gentleman with hx ESLD now s/p OLT Jul 2019, with kar req uiring dialysis clara-op who presents forfollow upof CKD. He initially hadAKI in the se tting of ESLD. His KAR was felt to be multifactorial (hemodynamic - HRS +/- ATN and then pot entially exacerbated by tacrolimus and bactrim). He underwent OLT in Jul 2019.He was on di alysis post OLT, from 08/22-09/01. On 09/01 during first (and only) dialysis at outpatient un it, he developed pruritic hives on both forearms shortly after starting dialysis. He had rec eived only heparin at that time. He was using the same dialyzer (revaclear 300) that he had used twice in the hospital. He had been receiving heparin for TDC locking while in hospital. Dialysis was stopped, TDC packed with citrate. Onfollow uplabs on 09/03, creatinine con tinued to be <2 so dialysis was discontinued. TDC was removed in Aug 2019. Potassium hernan ined elevated until bactrim was changed to atovaquone (after which it improved to be mostly in the mid 4's- low 5 range). Pt was readmitted in Sep 2019 with FTT and depression. He reports feeling improved sinc e discharge. He was started on mirtazapine, which pt reported improved sleep and appetite. Creatinine since dialysis discontinuation has been 1.6-2.2; since early 2019, most value s 1.8-2.2. eGFR by MDRD with this range is low to mid 30's (CKD IIIb). Since last appt, he has moved back to [place], [place]. He lives alone but several of his [facility] are nearby. He still has edema but less than at some times in the past, and tends to res olve overnight. However, he has been sleeping in recliner due to waking with dyspnea sometim es at night. This is not every night but he thinks perhaps worse over the past few weeks. No fever or cough now, but notes he did have a bad cough in Nov "felt like fluid on the lungs" after he caught a cold from one of his grandkids - did eventually resolve. He notes weight is stable but across a broad range, and he doesn't check it every day. PLAN: -KAR --> resolved --> now CKD IIIb: Creatinine post kar has settled into the 1.8-2 range fo r most values in 2019. He asks today re option for kidney transplant post OLT; I will have to query our txp neph colleagues. It is possible his eGFR is still overestimating renal func tion if muscle mass has not fully recovered from pre-liver txp health status. Could consider 24 hour urine to help better estimate. Typically eGFR <20 x2 is require for txp eval, but I am not certain if those rules are different for patients with sustained renal damage after a different organ txp. -Edema/HTN/possible orthopnea: No recent BPs and he doesn't have a way to check at home. He notes it's "high sometime" at office visits. I can't see recent PCP appt (not in care every where). Sounds like edema is stable to sl improved - comes on some during the day but less t wren before and resolves overnight. He notes weight is 188-194 lbs but varies in that range a nd is not consistently increasing (although he doesn't check daily). However, he reports dif ficulty breathing at night when sleeping, such that he has been sleeping some in a recliner. He also had a "bad cough" and cold for 3 wks in November (now resolved, per pt, but was slo w to do so). His overall volume status is difficult to discern via phone visit today, azeb gi dragan what he reports as stable weights and less overall edema but possible orthopnea. I will order CXR for him to have done at local hospital to help assess for pulm edema. ---CXR at local hospital (ordered) -HyperK: still requiring low K diet and intermittent kayexalate. Per our discussion, dairy may be contributing, but still higher K than I might expect (azeb off bactrim). He is still o n tacrolimus, which is necessary. Will rx lokelma for twice weekly dosing; will complete jazmine or auth. If not approved, consider weekly dose of kayexalate. He has repeat labs scheduled f or next week per d/w transplant. -Anemia: Hgb up to 11.9. Followed by local hematology. -R/o mineral bone disease: PTH 19 in Oct. Consider recheck in the Fall. F/u: 3 mo Angélica Chao MD [facility] Ass[facility] Professor Division of Nephrology and Hypertension Office tel: [phone] Telephone visit from 3:30 pm - 3:59 pm I spent 5 minutes in pre chart review, 29 minutes on phone with patient, and 10 minutes in post chart documentation. Total time, 44 minutes. Problem list: (This list was compiled at time of initial consultation based on chart review and patient interview; this list was reviewed today and was modified as needed to maintain accuracy.) 1. ESLD -2/2 etoh (presumed, post olt bx pending as of Aug 2019) -s/p OLT Aug 16, 2019 ([facility]) 2. KAR --> CKD -multifactorial around time of OLT (hemodynamic/HRS, bactrim, tacrolimus) -HD initiated 08/22/19 for azotemia, hypervolemia; stopped after 09/01/19 with e/o renal rec overy 3. Malnutrition 4. SVT/Afib 5. Elevated CBGs 2/2 medications -on insulin post OLT Pre-clinic chart review (from outside/internal medical record review): Since last appt, see n by hepatology - remains on tacrolimus and fludrocortisone. Despite this, K has been consis tently >5 on last several labs, creatinine ~2. Notes indicate he has returned home to [place], [place]. S: I called patient for telephone visit. He confirms he is back in [place]. He lives by himself but has 3 kids nearby. He confirms recent potassium levels have been elevated. He did eat a couple of bananas last week. No OJ and no tomato sauce. Only cranberry juice for juices. He has taken kayexalate intermittently but doesn't cause BM per pt and K rebounds up again. No problems with constip ation per pt, but he goes "every other day" (he says that is his baseline). He notes he drin ks milk every day and sometimes eats yogurt. Creatinine predominantly 1.8-2.2. Reviewed that this is chronic kidney disease. He asks re option for kidney transplant. Still some minimal peripheral edema but "pretty good." Some sock lines by the end of the da y; resolves overnight. No sob, mcintyre. He wakes up with difficulty breathing; more often recent ly. Weight has been between 188-194 lbs, 193 lbs this morning. Weighs about every other day. He was "sick" in Nov for about 3 wks - caught from grandson. Would "cough like crazy" and t hen "cough stuff up." Improved after 2.5-3 wks. Not checking BP at home. He notes it was high at last appt but normal at end of appt. ROS: No CP, skin changes or rashes, sudden vision changes, fever. Reviewed systems include constitutional, eyes, nose/throat, musculoskeletal, psych, cardiovascular, respiratory, GI , , skin. Current Outpatient Medications Medication Sig [...] 1 tablet by mouth once keren ly. fludrocortisone 0.1 mg oral tablet Take 1 [...] PCP. Indications: type 2 diabetes mellitus Insulin [place] (Disposable) (COMFORT EZ PEN NEEDLES) 31 gauge [...] facility-administered medications for this visit. O: No vitals available from patient No exam - telephone visit Labs: Recent Labs 02/01/20 0955 02/08/20 0841 02/15/20 0941 NA 138 137 139 K 5.1 5.1 5.5 CL 100 100 102 BICARB 31 27 31 BUN 41 51 44 CR 1.88 2.19 2.05 GLU 254* 224* 192* CA 9.5 9.5 9.5 AST 10 12 11 ALT 8 10 10 AP 59 60 64 TBILI 0.4 0.5 0.4 TP 6.6 6.3 6.5 ALB 4.1 4.1 4.1 Lab Results Component Value Date PO4 3.9 02/15/2020 Lab Results Component Value Date MG 1.7 02/15/2020 Lab Results Component Value Date PTH 19 11/16/2019 Lab Results Component Value Date SATTRANSFERR 18 (L) 11/09/2019 SATTRANSFERR 82 (H) 08/15/2019 SATTRANSFERR 105 (H) 04/21/2019 Lab Results Component Value Date FERRITIN 189 11/16/2019 Recent Labs 11/02/19 1010 11/09/19 0753 11/16/19 0741 02/01/20 0955 02/08/20 0841 02/15/20 0941 WBC 2.56* 1.57* 1.18* < > 5.3 5.1 5.3 RBC 3.45* 3.46* 3.46* -- -- -- -- HB 9.7* 10.2* 9.7* < > 12.0* 11.1* 11.9* HCT 31.7* 31.7* 31.7* < > 35.2 32.0 34.4 PLT 77* 73* 73* < > 101 91 107 NEUTROPERC 57.8 45.9* 34.9* -- -- -- -- LYMPHPERC 22.7 36.9 46.6* -- -- -- -- MONOPERC 10.5* 8.3 9.3* -- -- -- -- BASOPERC 1.6 1.3 2.5* -- -- -- -- EOSPERC 6.6* 7.0* 5.9* -- -- -- -- < > = values in this interval not displayed. Please see A/P at top of this note. documented in this e ncounter Plan of Treatment +--------+ + + + + | Date | Type | Specialty | Care Team | Description | +--------+ + + + + | 08/08/ | Telephone-S | Nephrology | Angélica Chao, | | | 2019 | cheduled | | [address] | | | | | | [address] | | | | | | [place], [place] | | | | | | [address] | | | | | | [phone] | | | | | | | | +--------+ + + + + | 09/27/ | Telephone-S | Liver Transplant | Vimal Crowe MD | | | 2019 | [place] | | [address] | | | | | | [address], | | | | | | [place] [address] | | | | | | [phone] | | | | | | | | +--------+ + + + + | 10/03/ | Appointment | Cardiology | | | | 2019 | | | | | +--------+ + + + + | 10/03/ | Office | Cardiology | Cyril Samuel | | | 2019 | Visit | | MD Patricia [address] | | | | | | [address] | | | | | | [place], [place] | | | | | | [address] | | | | | | [phone] | | | | | | | | +--------+ + + + + + +---------+--------+ + + | Name | Type | Priori | Associated Diagnoses | Order Schedule | | | | ty | | | + +---------+--------+ + + | X-RAY CHEST 2 VIEW | Imaging | Urgent | Orthopnea | Expected: | | | | | | 02/16/2020, Expires: | | | | | | 03/17/2021 | + +---------+--------+ + + documented as of this encounter Visit Diagnoses + + | Diagnosis | + + | CKD (chronic kidney disease) stage 3, GFR 30-59 ml/min - Primary Chronic kidney | | disease, Stage III (moderate) | + + | Hyperkalemia Hyperpotassemia | + + | Orthopnea | + + | Edema, unspecified type | + + | Anemia, unspecified type | + + documented in this encounter
--- OUTSIDE RECORDS SUMMARY | ~2020-07-29 | XMS | Encounter Summary ---
Demographics + + + | Address | [address] | | | [place] [address] | + + + | Home Phone [...] [place] | | | | | [address] | | + + + + + Care Team Providers + +------+ + | Care Nuclear Medicine Officer Name | Role | Phone | + +------+ + | Sharon David MD | PCP | | + +------+ + Encounter Details +--------+ + + + + | Date | Type | Department | Care Team | Description | +--------+ + + + + | 09/21/ | Pharmacy | Specialty Pharmacy | | | | 2019 | Visit | Services [address] | | | | | [address] | | | | | | [place], [place] | | | | | | [address] | | | | | | [phone] | | | +--------+ + + + [...] | | 2019 | [place] | | [address] | | | | | | [address] | | | | | | [place], [place] | | | | | | [address] | | | | | | [phone] | | | | | | | | +--------+ + + + + | 09/27/ | Telephone-S | Liver Transplant | Vimal Crowe MD | | | 2019 | cheduled | | [address] | | | | | | [facility] [place], | | | | | | [place] [address] | | | | | | [phone] | | | | | | | | +--------+ + + + + | 10/03/ | Appointment | Cardiology | | | | 2019 | | | | | +--------+ + + + + | 10/03/ | Office | Cardiology | Cyril Samuel | | | 2019 | Visit | | MD Patricia [address] | | | | | | [address] | | | | | | [place], [place] | | | | | | [address] | | | | | | [phone] | | | | | | | | +--------+ + + + + documented as of this encounter Visit Diagnoses Not on filedocumented in this encounter"
--- OUTSIDE RECORDS SUMMARY | ~2020-07-29 | XMS | Encounter Summary ---
Demographics + + + | Address | [address] | | | [place] [address] | + + + | Home Phone [...] [place] | | | | | [address] | | + + + + + Care Team Providers + +------+ + | Care Gamemaster Name | Role | Phone | + +------+ + | Sharon David MD | PCP | | + +------+ + Reason for Visit + +--------+ + | Reason | Onset | Comments | | | Date | | + +--------+ + | Social Work Notes | 05/04/ | | | | 2019 | | + +--------+ + Encounter Details +--------+ + + + + | Date | Type | Department | Care Team | Description | +--------+ + + + + | 05/04/ | Telephone | Liver Transplant | Liv Stephenson, | Social Work Notes | | 2019 | | at [facility] [address] | MANAGER OF CLINICAL [address] | | | | | [address] | [address] | | | | | [address] | [place], [place] | | | | | [place], [place] | [address] | | | | | [address] | [phone] | | | | | [phone] | | | +--------+ + + + [...] Telephone Encounter - Liv Stephenson LCSW - 05/04/2019 8:17 AM PDTSocial Work Note: Community Outreach Coordinator received pt's medical cost sheet, scanned and sent to PA resource program teacher Gela pritchett for review and entry into chart. Liv Stephenson LCSW Liver Transplant Daycare Worker Pager [phone] signed by Liv Stephenson LCSW at 05/04/2019 8:23 AM PDTdocument ed in this encounter Plan of Treatment [...] [address] | | | | | | [place], [place] | | | | | | [address] | | | | | | [phone] | | | | | | | | +--------+ + + + + | 09/27/ | Telephone-S | Liver Transplant | Vimal Crowe MD | | | 2019 | [place] | | [address] | | | | | | [address] | | | | | | [place] [address] | | | | | | [phone] | | | | | | | [...] Rd | | | | | | [place], [place] | | | | | | [address] | | | | | | [phone] | | | | | | | | +--------+ + + + + documented as of this encounter Visit Diagnoses Not on filedocumented in this encounter"
--- OUTSIDE RECORDS SUMMARY | ~2020-07-29 | XMS | Encounter Summary ---
Demographics + + + | Address | [address] | | | [place] [address] | + + + | Home Phone [...] [place] | | | | | [address] | | + + + + + Care Team Providers + +------+ + | Care Packager Name | Role | Phone | + +------+ + | Ignacio Caldwell MD | PCP | | + +------+ + Encounter Details +--------+ + + + + | Date | Type | Department | Care Team | Description | +--------+ + + + + | 07/04/ | Office | [facility] | Note, [...] as of this encounter Progress Notes Interface, Right Of Way Clearer In - 10/01/2006 5:10 AM PSTINIC DATE: 07[facility]04/[facility] Mr. Duran is now 13 weeks postfracture of the tibia. He is walking full weightbearing. He is slightly externally rotated. X-rays today showed callus formation but I can still see a fair amount of fracture gap. The external fixator is dismantled sequentially. There is no motion at the fracture site. There is no pain with attempted motion of the fracture site even cranking on the parts of the external fixator. The external fixation is totally removed. There is still no motion of the fracture. He is externally rotated by about 10 degrees. We discussed this. We discussed the angulation deformity as well which is slight valgus angulation. At this juncture, I think we need to be protective with this with crutches. I have discussed with him the possibility of refracture. Mr. Duran will be back here to see Dr. Almendarez about his back in one month's time and I will re-x-ray him at that point. He knows to either see me or to see Dr. Bentley in [place] should something occur. If he did refracture this, fixing it with a plate might be reasonable to restore the anatomy of that. However, I think this will be functional for him if it heals as it is. I will see Mr. Duran back in a month with AP and lateral of the tibia at that time. Rod Velasquez MD CBB / [id number] / [id number] / [id number] / cc: Rod Bentley MD [address] [place] [address] Ignacio Caldwell MD [address] [place], [place] [id number] signed by Interface, Right Of Way Clearer In at 10/01/2006 5:10 AM PSTdocumented in this encounter Plan of Treatment +--------+ + + + + | Date | Type | Specialty | Care Team | Description | +--------+ + + + + | 08/08/ | Telephone-S | Nephrology | Angélica Chao, | | | 2019 | [place] | | [address] | | | | | | [address] | | | | | | [place], [place] | | | | | | [address] | | | | | | [phone] | | | | | | | | +--------+ + + + + | 09/27/ | Telephone-S | Liver Transplant | Vimal Crowe MD | | | 2019 | [place] | | [address] | | | | | | [facility] [place], | | | | | | [place] [address] | | | | | | [phone] | | | | | | | | +--------+ + + + + | 10/03/ | Appointment | Cardiology | | | | 2019 | | | | | +--------+ + + + + | 10/03/ | Office | Cardiology | Cyril Samuel | | | 2019 | Visit | Darren Gomez MD [address] | | | | | | [address] | | | | | | [place], [place] | | | | | | [address] | | | | | | [phone] | | | | | | | | +--------+ + + + + documented as of this encounter Visit Diagnoses Not on filedocumented in this encounter"
--- OUTSIDE RECORDS SUMMARY | ~2020-07-29 | XMS | Encounter Summary ---
Demographics + + + | Address | [address] | | | [place] [address] | + + + | Home Phone [...] [place] | | | | | [address] | | + + + + + Care Team Providers + +------+ + | Care Evaluation Advisor Name | Role | Phone | + +------+ + | Sharon David MD | PCP | | + +------+ + Encounter Details +--------+ + + + + | Date | Type | Department | Care Team | Description | +--------+ + + + + | 12/29/ | Pharmacy | [facility] | | | | 2020 | Visit | [address] | | | | | | [address] | | | | | | [place] [address] | | | | | | [phone] | | | +--------+ + + + [...] | | | | | | [address] | | | | | | [place], [place] | | | | | | [address] | | | | | | [phone] | | | | | | | | +--------+ + + + + | 09/27/ | Telephone-S | Liver Transplant | Vimal Crowe MD | | | 2019 | cheduled | | [address] | | | | | | [address], | | | | | | [place] [address] | | | | | | [phone] | | | | | | | [...] Rd | | | | | | [place] | | | | | | [address] | | | | | | [phone] | | | | | | | | +--------+ + + + + documented as of this encounter Visit Diagnoses Not on filedocumented in this encounter"
--- OUTSIDE RECORDS SUMMARY | ~2020-07-29 | XMS | Encounter Summary ---
Demographics + + + | Address | [address] | | | [place] [address] | + + + | Home Phone [...] [place] | | | | | [address] | | + + + + + Care Team Providers + +------+ + | Care Telecom Manager Name | Role | Phone | + +------+ + | Sharon David MD | PCP | | + +------+ + Reason for Visit + + + | Reason | Comments | + + + | Follow-up visit | CKD stage 3 | + + + Intake Referral (Urgent) [...] | | | | | (moderate) | [place], | 3rd floor | | | | | | [place] [address] | [place], [place] | | | | | | Phone: | [address] | | | | | | [phone] | Phone: | | | | | | Fax: | [phone] | | | | | | [phone] | Fax: | | | | | | | [phone] | +--------+--------+ + + + + Encounter Details +--------+---------+ + + + | Date | Type | Department | Care Team | Description | +--------+---------+ + + + | 02/25/ | Office | Nephrology & | Alicia Canchola, | CKD (chronic kidney | | 2019 | Visit | [facility] at [facility] | DO [address] | disease) stage 3, | | | | [address] | [address] | GFR 30-59 ml/min | | | | [facility] | [place], [place] | ([facility]) (Primary Dx) | | | | [place], 3rd floor | [address] | | | | | [facility] [place] | [phone] | | | | | [address] | | | | | | [phone] | | | +--------+---------+ + + + [...] + + + | Blood Pressure | 120/63 | 02/25/2019 1:55 PM | | | | | PDT | | + + + + + | Pulse | 71 | 02/25/2019 1:55 PM | | | | | PDT | | + + + + + | Temperature | 36.8 C (98.2 F) | 02/25/2019 1:55 PM | | | | | PDT | | + + + + + | Respiratory Rate | - | - | | + + + + + | Oxygen Saturation | 100% | 02/25/2019 1:55 PM | | | | | PDT | | + + + + + | Inhaled Oxygen | - | - | | | Concentration | | | | + + + + + | Weight | 85.5 kg (188 lb 9.6 | 02/25/2019 1:55 PM | | | | oz) | PDT | | + + + + + | Height | 177.8 cm (5' 10") | 02/25/2019 1:55 PM | | | | | PDT | | + + + + + | Body Mass Index | 27.06 | 02/25/2019 1:55 PM | | | | | PDT | | + + + + + documented in this encounter Patient Instructions Patient Instructions Alicia Canchola DO - 02/25/2019 2:00 PM PDTIncrease lasix 40 mg BID Continue Aldactone 100 mg daily Labs in 2 weeks Follow up In 4 months. documented in this encounter Progress Notes Mitch Jarrett MD - 02/25/2019 2:00 PM PDTI personally interviewed the patient and perform ed the tamez elements of the physical examination. I formulated the assessment and plan with t nicolasa resident. I agree with Dr Canchola's documentation. 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 Cannot HRS type 2. Has had hematuria but no proteinuria. Hematuria not associated with HRS. His renal function has remained stable. Has significant LE edema today; worse compare to hi s last visit. Weight appears to be stable. We will increase his diuretic regimen to 40 mg BID of lasix from 20 mg BID. Continue aldact one 100 mg daily Has completed evaluation by hepatology but awaiting for evaluation by cardiology regarding his moderate pulmonary hypertension which is a contraindication to transplantion. I Discussed again today that if he deemed a transplant and renal function worsens while delma ting for tx, we will offer VIDEOGAME DESIGNER as a bridge to Transplant. If he is not deemed a tx candidate he will not be a candidate for VIDEOGAME DESIGNER. Patient verbalized understanding as well as family. Recommendations today: Follow up labs in 2 weeks to monitor renal function after increased dose of diuretic regime n. UA with micro and dip to follow up on proteinuria/hematuria. 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 Diuretic regimen as noted above. 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 The etiology of thrombocytopenia and anemia is felt to be secondary to RBCs and plts sequestration through his cirrhosis and enlarged spleen. Needs a Tx and splenectomy. Has been getting trasnfusion to keep Hb>7.5 and plts Below 30,000 her hematology Followed by Dr Quevedo ([facility]) Hyponatremia: Hypervolemic hyponatremia+ significant free water intake Increase diuretic regimen. Repeat renal profile in 2 weeks Alicia Canchola DO. 02/25/2019 Patient seen and staffed with attending of record, Dr. Jarrett Thank you for this consultation. Please feel free to contact me with any questions or comme nts you might have. NEPHROLOGY & [facility] AT [facility] [address] Mailcode: [id number] [place] [address] Chief Complaint: Chief Complaint Patient presents with Follow-up visit CKD stage 3 HPI: Interval hx: Hospitalized for pneumonia Hepatology evaluated patient and awaiting for cardiology to evaluate moderate pulm hyperten arjun Subjective Hx: Presents today accompanied by his mother and sister who are from [place] Feeling overall well. Ran out his aldactone due to increased dose from 50 mg-->100 mg; cannot get a refill until 03/01. LE edema worse but ascites have improved significantly. Remains sober; last drink was 7 months ago. REVIEW OF SYSTEMS: Denies chest pain, SOB, or palpitations. No dizziness. + LE edema. No orthopnea, or PND. No nausea, vomiting, or constipation. Past Medical/Surgical and Fam/Soc History Past Medical History: 1.Cirrhosis of Liver 2. Ethanol for 20 years: Beers : 1 pack per day. Sober for the past 6 months. Social History: No ethanol use: Tobacco: yes; Tobacco: chews fine cut tobacco Smoking: No Recreational: No Marital status: SIngle Exercise: No Caffeine: yes frequency: Worked on [employer] for years Surgical History: None Family History: Cancer Grandmother: Stomach cancer Prostate Hospitalization/Major Diagnostic Procedure: adapted from PCP note. SAH: Multi Lobar pneumonia with acute respiratory Failure with hypoxia with severe sepsis. Incidental diagnosis of liver cirrhosis [facility]: Severe anemia. Acute kidney injury. 6 units of pRBCs. Splenic sequestratio n 07/17-07/24/18 [facility]: EGD and colonoscopy: no signs of bleeding. Echocardiogram.: primary hypert ension with right ventricular enlargement. Lasix 20 BID. Vasculitis work up negative. Venous ulcers changed to Keflex. Creatinine 1.6. [facility]: US abdomen-Liver steatosis. Right pleural effusion. Splenomegaly. Normal U S. No DVT. Echo: EF:60-65%. Moderate diastolic dysfunction. Moderate TR. Moderate to severe pulmonary HTN: 07/18/18 Dr: Marocytic anemia and thrombocytopenia from liver cirrhosis and splenomegaly. Recurrent Hemoglobin 6.4; 2 units pRBC. Bone marrow biopsy. 09/29/18: Acute on chronic anemia. 3 Units of PRB. MEDICATIONS: Furosemide 40 mg BID Spironolactone: 100 mg daily Lactulose: 10 mg daily ALLERGIES: Doxycycline Monohydrate: Rash PHYSICAL EXAM: Last Vitals: BP 120/63 | Pulse 71 | Temp 36.8 C (98.2 F) (Oral) | Ht 1.778 m (5' 10" ) | Wt 85.5 kg (188 lb 9.6 oz) | SpO2 100% | BMI 27.06 kg/m | BSA 2.05 m GENERAL: No acute distress, alert and cooperative. Chronically ill appearing. HEENT/NECK: Sclera icteric. Oropharynx normal, neck without masses or LAD. CVS: S1, S2 normal, RRR, no murmurs, rubs or gallops. JVP ~9cm CHEST: Breathing unlabored, CTA bilateral, no crackles or wheeze Abdomen: Soft, not tender, not distended Extremeties: WWP, +2 pitting edema up to knees. SKIN: No concerning rashs, warm/dry NEUROLOGICAL/PSYCHIATRIC: Slow speech but Grossly non-focal, no asterixis, normal mood/aff ect. LAB / STUDIES: Renal US: Right Kidney: 12.4 x 9.0 [...] 21.3 x 7.5 x 20.8 cm. 1. Cirrhosis with portal hypertension. No focal lesion. MRI 11/19/18: 2. Diffuse hepatic signal loss on in-phase imaging with more prominent focal signal loss ab out the hepatic veins, and similar signal loss involving the pancreatic body/tail. These fin dings reflect abnormal iron deposition, either due to underlying cirrhosis or primary hemach romatosis. 3. Cholelithiasis without associated inflammatory changes. No biliary ductal documented in this e ncounter Plan of Treatment +--------+ + + + + | Date | Type | Specialty | Care Team | Description | +--------+ + + + + | 08/08/ | Telephone-S | Nephrology | Angélica Chao, | | | 2019 | [place] | | [address] | | | | | | [address] | | | | | | [place], [place] | | | | | | [address] | | | | | | [phone] | | | | | | | | +--------+ + + + + | 09/27/ | Telephone-S | Liver Transplant | Vimal Crowe MD | | 2019 | [place] | | [address] | | | | | | [address] | | | | | | [place] [address] | | | | | | [phone] | | | | | | | [...] | | | | | | [place], [place] | | | | | | [address] | | | | | | [phone] | | | | | | | | +--------+ + + + + documented as of this encounter Visit Diagnoses + + | Diagnosis | + + | CKD (chronic kidney disease) stage 3, GFR 30-59 ml/min - Primary Chronic kidney | | disease, Stage III (moderate) | + + documented in this encounter
--- OUTSIDE RECORDS SUMMARY | ~2020-07-29 | XMS | Encounter Summary ---
Demographics + + + | Address | [address] | | | [place] [address] | + + + | Home Phone [...] [place] | | | | | [address] | | + + + + + Care Team Providers + +------+ + | Care Dredge Runner Name | Role | Phone | + +------+ + | Sharon David MD | PCP | | + +------+ + Encounter Details +--------+ + + + + | Date | Type | Department | Care Team | Description | +--------+ + + + + | 11/02/ | Documentati | Clinical | Pattie Ignacio, | | | 2020 | on | Transplant Services | [facility] [address] | | | | | [address] | [address] | | | | | [place], | [place], [place] | | | | | [place] [address] | [address] | | | | | [phone] | [phone] | | | | | | | [...] Telephone Encounter - Judie Mota RN - 11/02/2019 2:49 PM PSTPrograf dose low on a dose of 3/3 increase to 4/4 per Pattie Ignacio PA-C. Called spoke with Donell he repeated the do se back to me correctly all questions answered. documented in this encounter Plan of [...] Rd | | | | | | [place], [place] | | | | | | [address] | | | | | | [phone] | | | | | | | | +--------+ + + + + | 09/27/ | Telephone-S | Liver Transplant | Vimal Crowe MD | | | 2019 | [place] | | [address] | | | | | | [address], | | | | | | [place] [address] | | | | | | [phone] | | | | | | | [...] [place] | | | | | | [address] | | | | | | [phone] | | | | | | | | +--------+ + + + + documented as of this encounter Visit Diagnoses Not on filedocumented in this encounter"
--- OUTSIDE RECORDS SUMMARY | ~2020-07-29 | XMS | Encounter Summary ---
Demographics + + + | Address | [address] | | | [place] [address] | + + + | Home Phone [...] [place] | | | | | [address] | | + + + + + Care Team Providers + +------+ + | Care Setter Helper Name | Role | Phone | + +------+ + | Sharon David MD | PCP | | + +------+ + Encounter Details +--------+------+ + + + | Date | Type | Department | Care Team | Description | +--------+------+ + + + | 09/28/ | Lab | [facility] at [facility] | | Liver transplant | | 2019 | | [address] | | status (HCC) | | | | [facility] | | | | | | [place], 3rd floor | | | | | | [place], [place] | | | | | | [address] | | | | | | [phone] | | | +--------+------+ + + + [...] | | | | | | [facility] [place] | | | | | | [address] | | | | | | [phone] | | | | | | | | +--------+ + + + + | 09/27/ | Telephone-S | Liver Transplant | Vimal Crowe MD | | | 2019 | [place] | | [address] | | | | | | [address], | | | | | | [place] [address] | | | | | | [phone] | | | | | | | [...] Rd | | | | | | [place], [place] | | | | | | [address] | | | | | | [phone] | | | | | | | | +--------+ + + + + documented as of this encounter Procedures + +--------+ + + + | Procedure Name | Priori | Date/Time | Associated Diagnosis | Comments | | | ty | | | | + +--------+ + + + | CBC AND AUTO DIFF | Routin | 09/28/2019 | Liver transplant | Results for this | | | e | 8:54 AM | status (HCC) | procedure are in the | | | | PST | | results section. | + +--------+ + + + | CBC, WITH | Routin | 09/28/2019 | Liver transplant | Results for this | | DIFFERENTIAL | e | 8:54 AM | status (HCC) | procedure are in the | | | | PST | | results section. | + +--------+ + + + | COMPLETE METABOLIC | Routin | 09/28/2019 | Liver transplant | Results for this | | SET | e | 8:54 AM | status (HCC) | procedure are in the | | (NA,K,CL,CO2,BUN,CRE | | PST | | results section. | | AT,GLUC,CA,AST,ALT,B | | | | | | KEV TOTAL,ALK | | | | | | PHOS,ALB,PROT TOTAL) | | | | | + +--------+ + + + | TACROLIMUS, WHOLE | Routin | 09/28/2019 | Liver transplant | Results for this | | BLOOD | e | 8:54 AM | status (HCC) | procedure are in the | | | | PST | | results section. | + +--------+ + + + | PHOSPHORUS, PLASMA | Routin | 09/28/2019 | Liver transplant | Results for this | | | e | 8:54 AM | status (HCC) | procedure are in the | | | | PST | | results section. | + +--------+ + + + | BILIRUBIN DIRECT | Routin | 09/28/2019 | Liver transplant | Results for this | | | e | 8:54 AM | status (HCC) | procedure are in the | | | | PST | | results section. | + +--------+ + + + | URIC ACID, PLASMA | Routin | 09/28/2019 | Liver transplant | Results for this | | | e | 8:54 AM | status (HCC) | procedure are in the | | | | PST | | results section. | + +--------+ + + + | MAGNESIUM, PLASMA | Routin | 09/28/2019 | Liver transplant | Results for this | | | e | 8:54 AM | status (HCC) | procedure are in the | | | | PST | | results section. | + +--------+ + + + documented in this encounter Results CBC AND AUTO DIFF (09/28/2019 8:54 AM PST) + + + + + + | Component | Value | Ref Range | Performed | Pathologist | | | | | At | Signature | + + + + + + | WHITE CELL | 4.10 | 3.50 - 10.80 | [facility] | | | COUNT | | K/cu mm | LABORATORY | | | | | | SERVICES, | | | | | | CORE | | + + + + + + | RED CELL | 3.16 (L) | 4.50 - 6.00 | [facility] [...] + + + | HEMATOCRIT | 30.0 (L) | 41.0 - 53.0 % | [facility] | | | | | | LABORATORY | | | | | | SERVICES, | | | | | | CORE | | + + + + + + | MCV | 94.9 | 80.0 - 100.0 fL | [facility] [...] + + + | RDW SD | 52.9 (H) | 35.1 - 46.3 fL | [facility] | | | | | | LABORATORY | | | | | | SERVICES, | | | | | | CORE | | + + + + + + | PLATELET | 110 (L)Comment: | 150 - 400 K/cu | [...] + + + + | NEUTROPHIL | 73.6 (H) | 50.0 - 70.0 % | [...] + + + | MONOCYTE % | 4.4 | 3.5 - 9.0 % | [facility] | | | | | | LABORATORY | | | | | | SERVICES, | | | | | | CORE | | + + + + + + | EOS % | 2.0 | 1.0 - 3.0 % | [facility] [...] + + + + | NEUTROPHIL | 3.02 | 1.80 - 7.70 | [facility] | [...] | + + + + + | [facility] | [address] | [place] [address] | | | SERVICES, CORE | [address] [...] | [facility] | [address] | [place] [address] | | | SERVICES, CORE | [address] [...] | Test performed by immunoassay using [employer] i2000. . | [facility] | | Samples [...] [facility] | [address] | [place] [address] | | | SERVICES, SPECIAL | [address] [...] [facility] | [address] | [place] [address] | | | CLAUDIA, ARTIS | [address] [...] [facility]ENTER LAB[facility] | [address] | [place] [address] | | | SERVICES, CORE | [address] | | | + + + + + MAGNESIUM, PLASMA (09/28/2019 8:54 AM PST) + +-------+ + + + | Component | Value | Ref Range | Performed | Pathologist | | | | | At | Signature | + +-------+ + + + | MAGNESIUM,P | 1.6 | 1.6 - 2.6 mg/dL | [facility] | | | LASMA | | | [...] | + + + + + | [facility] | [address] | [place] [address] | | | SERVICES, CORE | [address] [...] | | | LABORATORY | | | [place] | | | SERVICES, | | | [...] MDRD equation recommended by the National | [facility] | | Kidney Disease [...] [facility] | [address] | [place] [address] | | | SERVICES, CORE | [address] | | | + + + + + documented in this encounter Visit Diagnoses + + | Diagnosis | + + | Liver transplant status (HCC) | + + documented in this encounter"
--- OUTSIDE RECORDS SUMMARY | ~2020-07-29 | XMS | Encounter Summary ---
Demographics + + + | Address | [address] | | | [place] [address] | + + + | Home Phone [...] [place] | | | | | [address] | | + + + + + Care Team Providers + +------+ + | Care Winemaker Name | Role | Phone | + +------+ + | Sharon David MD | PCP | | + +------+ + Encounter Details +--------+ + + + + | Date | Type | Department | Care Team | Description | +--------+ + + + + | 11/20/ | Pharmacy | [facility] | | | | 2020 | Visit | [address] | | | | | | [address] | | | | | | [place] [address] | | | | | | [phone] | | | +--------+ + + + [...] Rd | | | | | | [place], [place] | | | | | | [address] | | | | | | [phone] | | | | | | | | +--------+ + + + + | 09/27/ | Telephone-S | Liver Transplant | Vimal Crowe MD | | | 2019 | [place] | | [address] | | | | | | [address], | | | | | | [place] [address] | | | | | | [phone] | | | | | | | [...] Rd | | | | | | [place] | | | | | | [address] | | | | | | [phone] | | | | | | | | +--------+ + + + + documented as of this encounter Visit Diagnoses Not on filedocumented in this encounter"
--- OUTSIDE RECORDS SUMMARY | ~2020-07-29 | XMS | Encounter Summary ---
Demographics + + + | Address | [address] | | | [place] [address] | + + + | Home Phone [...] [place] | | | | | [address] | | + + + + + Care Team Providers + +------+ + | Care Supervisor Shuttle Fitting Name | Role | Phone | + +------+ + | Sharon David MD | PCP | | + +------+ + Reason for Visit + +--------+ + | Reason | Onset | Comments | | | Date | | + +--------+ + | Transplant Status | 08/03/ | reactivated on [facility] | | Change | 2019 | | + +--------+ + Encounter Details +--------+ + + + + | Date | Type | Department | Care Team | Description | +--------+ + + + + | 08/03/ | Telephone | Clinical | Porsche Perdomo, | Transplant Status | | 2019 | | Transplant Services | RN [address] | Change (reactivated | | | | [address] | [address] | on [facility] ) | | | | [place], | [place], [place] | | | | | [place] [address] | [address] | | | | | [phone] | | | +--------+ + + + [...] Telephone Encounter - Porsche Perdomo RN - 08/03/2019 3:[address] Autumn springer/Eduard and on-call transplant surgeon Dr. Weeks, ok to reactivate patient on the liver transplant waitlist, notified patient and sister Doreen, all questions answered. Electronica lly signed by Porsche Perdomo, RN at 08/03/2019 3:25 PM PDTdocumented in this encounter Plan of Treatment +--------+ + + + + | Date | Type | Specialty | Care Team | Description | +--------+ + + + + | 08/08/ | Telephone-S | Nephrology | Angélica Chao, | | | 2019 | [place] | | [address] | | | | | | [address] | | | | | | [place], [place] | | | | | | [address] | | | | | | [phone] | | | | | | | | +--------+ + + + + | 09/27/ | Telephone-S | Liver Transplant | Vimal Crowe MD | | | 2019 | [place] | | [address] | | | | | | [address] | | | | | [place] [address] | | | | | | [phone] | | | | | | | | +--------+ + + + + | 10/03/ | Appointment | Cardiology | | | | 2019 | | | | | +--------+ + + + + | 10/03/ | Office | Cardiology | Cyril Samuel | | | 2019 | Visit | | MD [place] [address] | | | | | | [address] | | | | | | [place], [place] | | | | | | [address] | | | | | | [phone] | | | | | | | | +--------+ + + + + documented as of this encounter Visit Diagnoses Not on filedocumented in this encounter"
--- OUTSIDE RECORDS SUMMARY | ~2020-07-29 | XMS | Encounter Summary ---
Demographics + + + | Address | [address] | | | [place] [address] | + + + | Home Phone [...] [place] | | | | | [address] | | + + + + + Care Team Providers + +------+ + | Care Dish Maker Name | Role | Phone | + +------+ + | Sharon David MD | PCP | | + +------+ + Reason for Visit + +--------+ + | Reason | Onset | Comments | | | Date | | + +--------+ + | Lab Draw | 07/15/ | | | | 2018 | | [...] | [address] | [address] [place], | | | | | [place], | [place] [address] | | | | | [place] [address] | [phone] | | | | | [phone] | | | +--------+ + + + [...] Rd | | | | | | [place], [place] | | | | | | [address] | | | | | | [phone] | | | | | | | | +--------+ + + + + | 09/27/ | Telephone-S | Liver Transplant | Vimal Crowe MD | | | 2019 | [place] | | [address] | | | | | | [address], | | | | | | [place] [address] | | | | | | [phone] | | | | | | | | +--------+ + + + + | 10/03/ | Appointment | Cardiology | | | | 2019 | | | | | +--------+ + + + + | 10/03/ | Office | Cardiology | Cyril Samuel | | | 2020 | Visit | | MD [place] [address] | | | | | | [address] | | | | | | [place], [place] | | | | | | [address] | | | | | | [phone] | | | | | | | | +--------+ + + + + documented as of this encounter Procedures + +--------+ + + + | Procedure Name | Priori | Date/Time | Associated Diagnosis | Comments | | | ty | | | | + +--------+ + + + | NICOTINE + | Routin | 07/07/2019 | | Results for this | | METABOLITE SCREEN, | e | | | procedure are in the | | URINE | | | | results section. | + +--------+ + + + documented in this encounter Results NICOTINE + METABOLITE SCREEN, URINE (07/07/2019) + +-------+ + + + | [...] + + | [facility] - | [address] | [place] | [phone] | | [place] | | | | + + + + + documented in this encounter Visit Diagnoses Not on filedocumented in this encounter"
--- OUTSIDE RECORDS SUMMARY | ~2020-07-29 | XMS | Encounter Summary ---
Demographics + + + | Address | [address] | | | [place] [address] | + + + | Home Phone [...] [place] | | | | | [address] | | + + + + + Care Team Providers + +------+ + | Care Life Scientists Name | Role | Phone | + +------+ + | Sharon David MD | PCP | | + +------+ + Encounter Details +--------+ + + + + | Date | Type | Department | Care Team | Description | +--------+ + + + + | 04/26/ | Abstract | Clinical | Vimal Crowe MD | | | 2019 | | Transplant Services | [address] | | | | | [address] | [address] [place], | | | | | Patricia [place], | [place] [address] | | | | | [place] [address] | [phone] | | | | | [phone] | | | +--------+ + + + [...] Rd | | | | | | [place], [place] | | | | | | [address] | | | | | | [phone] | | | | | | | | +--------+ + + + + | 09/27/ | Telephone-S | Liver Transplant | Vimal Crowe MD | | | 2019 | [place] | | [address] | | | | | | [facility] [address] [place], | | | | | | [place] [address] | | | | | | [phone] | | | | | | | | +--------+ + + + + | 10/03/ | Appointment | Cardiology | | | | 2019 | | | | | +--------+ + + + + | 10/03/ | Office | Cardiology | Cyril Samuel | | | 2019 | Visit | Darren Gomez MD [address] | | | | | | [address] | | | | | | [place], [place] | | | | | | [address] | | | | | | [phone] | | | | | | | | +--------+ + + + + documented as of this encounter Procedures + +--------+ + + + | Procedure Name | Priori | Date/Time | Associated Diagnosis | Comments | | | ty | | | | + +--------+ + + + | LIVER TRANSPLANT | Routin | 04/25/2020 | | Results for this | | POST PANEL (EXT | e | 6:44 AM | | procedure are in the | | RESULTS) | | PDT | | results section. | + +--------+ + + + documented in this encounter Results LIVER TRANSPLANT POST PANEL (EXT RESULTS) (04/25/2020 6:44 AM PDT) + + + + [...] + + + + | GLUCOSE, | 187 (A) | 65 - 110 mg/dL | [facility] | | | PLASMA | | | LAB - | | | (LAB) | | | [place] | | + + + + + + | BUN, PLASMA | 40 | mg/dL | [facility] | | | (LAB) | | | LAB - | | | | | | [place] | | + + + + + + | CREATININE | 3.11 | mg/dL | [facility] | | | [...] + + + + | PHOSPHORUS, | 4.0 | mg/dL | [facility] | | | PLASMA | | | LAB - | | | (LAB) | | | [place] | | + + + + + + | MAGNESIUM,P | 3.0 | mg/dL | [facility] | | | [...] + + + | ALK PHOS | 84 | U/L | [facility] | | | [...] + + + + | TACROLIMUS | 8.8 | ng/mL | [facility] | | | [...] [address] | [place] | [phone] | | [place] | | | | + + + + + documented in this encounter Visit Diagnoses Not on filedocumented in this encounter"
--- OUTSIDE RECORDS SUMMARY | ~2020-07-29 | XMS | Encounter Summary ---
Demographics + + + | Address | [address] | | | [place] [address] | + + + | Home Phone [...] [place] | | | | | [address] | | + + + + + Care Team Providers + +------+ + | Care Tire Fabricator Name | Role | Phone | + +------+ + | Sharon David MD | PCP | | + +------+ + Encounter Details +--------+ + + + + | Date | Type | Department | Care Team | Description | +--------+ + + + + | 01/12/ | Pharmacy | [facility] | | | | 2020 | Visit | [address] | | | | | | [address] | | | | | | [place] [address] | | | | | | [phone] | | | +--------+ + + + [...] Rd | | | | | | [place], [place] | | | | | | [address] | | | | | | [phone] | | | | | | | | +--------+ + + + + | 09/27/ | Telephone-S | Liver Transplant | Vimal Crowe MD | | | 2019 | cheduled | | [address] | | | | | | [address], | | | | | | [place] [address] | | | | | | [phone] | | | | | | | [...] Rd | | | | | | [place] | | | | | | [address] | | | | | | [phone] | | | | | | | | +--------+ + + + + documented as of this encounter Visit Diagnoses Not on filedocumented in this encounter"
--- OUTSIDE RECORDS SUMMARY | ~2020-07-29 | XMS | Encounter Summary ---
Demographics + + + | Address | [address] | | | [place] [address] | + + + | Home Phone [...] [place] | | | | | [address] | | + + + + + Care Team Providers + +------+ + | Care Collar Worker Name | Role | Phone | + +------+ + | Sharon David MD | PCP | | + +------+ + Encounter Details +--------+ + + + + | Date | Type | Department | Care Team | Description | +--------+ + + + + | 02/18/ | Documentati | Nephrology & | Angélica Chao, | | | 2020 | on | [facility] | [address] | | | | | [address] | [address] | | | | | [address] | [place], [place] | | | | | [address], [facility] floor | [address] | | | | | [place], [place] | [phone] | | | | | [address] | | | | | | [phone] | | | +--------+ + + + [...] | | | | | | [place], [place] | | | | | | [address] | | | | | | [phone] | | | | | | | | +--------+ + + + + | 09/27/ | Telephone-S | Liver Transplant | Vmial Crowe MD | | | 2019 | cheduled | | [address] | | | | | | [facility] [address] [place], | | | | | | [place] [address] | | | | | | [phone] | | | | | | | [...] Rd | | | | | | [place], [place] | | | | | | [address] | | | | | | [phone] | | | | | | | | +--------+ + + + + documented as of this encounter Visit Diagnoses Not on filedocumented in this encounter"
--- OUTSIDE RECORDS SUMMARY | ~2020-07-29 | XMS | Encounter Summary ---
Demographics + + + | Address | [address] | | | [place] [address] | + + + | Home Phone [...] [place] | | | | | [address] | | + + + + + Care Team Providers + +------+ + | Care Outside Sales Representative Name | Role | Phone | + +------+ + | Sharon David MD | PCP | | + +------+ + Encounter Details +--------+------+ + + + | Date | Type | Department | Care Team | Description | +--------+------+ + + + | 10/01/ | Lab | [facility] at [facility] | | Liver transplant | | 2019 | | [address] | | status (HCC) | | | | [address] | | | | | | [place], 3rd floor | | | | | | [place], [place] | | | | | | [address] | | | | | | [phone] | | | +--------+------+ + + + [...] Rd | | | | | | [facility] [place] | | | | | | [address] | | | | | | [phone] | | | | | | | | +--------+ + + + + | 09/27/ | Telephone-S | Liver Transplant | Vimal Crowe MD | | | 2019 | [place] | | [address] | | | | | | [address], | | | | | | [place] [address] | | | | | | [phone] | | | | | | | [...] Rd | | | | | | [place], [place] | | | | | | [address] | | | | | | [phone] | | | | | | | | +--------+ + + + + documented as of this encounter Procedures + +--------+ + + + | Procedure Name | Priori | Date/Time | Associated Diagnosis | Comments | | | ty | | | | + +--------+ + + + | CBC AND AUTO DIFF | Routin | 10/01/2019 | Liver transplant | Results for this | | | e | 8:16 AM | status (HCC) | procedure are in the | | | | PST | | results section. | + +--------+ + + + | CBC, WITH | Routin | 10/01/2019 | Liver transplant | Results for this | | DIFFERENTIAL | e | 8:16 AM | status (HCC) | procedure are in the | | | | PST | | results section. | + +--------+ + + + | COMPLETE METABOLIC | Routin | 10/01/2019 | Liver transplant | Results for this | | SET | e | 8:16 AM | status (HCC) | procedure are in the | | (NA,K,CL,CO2,BUN,CRE | | PST | | results section. | | AT,GLUC,CA,AST,ALT,B | | | | | | KEV TOTAL,ALK | | | | | | PHOS,ALB,PROT TOTAL) | | | | | + +--------+ + + + | TACROLIMUS, WHOLE | Routin | 10/01/2019 | Liver transplant | Results for this | | BLOOD | e | 8:16 AM | status (HCC) | procedure are in the | | | | PST | | results section. | + +--------+ + + + | PHOSPHORUS, PLASMA | Routin | 10/01/2019 | Liver transplant | Results for this | | | e | 8:16 AM | status (HCC) | procedure are in the | | | | PST | | results section. | + +--------+ + + + | BILIRUBIN DIRECT | Routin | 10/01/2019 | Liver transplant | Results for this | | | e | 8:16 AM | status (HCC) | procedure are in the | | | | PST | | results section. | + +--------+ + + + | URIC ACID, PLASMA | Routin | 10/01/2019 | Liver transplant | Results for this | | | e | 8:16 AM | status (HCC) | procedure are in the | | | | PST | | results section. | + +--------+ + + + | MAGNESIUM, PLASMA | Routin | 10/01/2019 | Liver transplant | Results for this | | | e | 8:16 AM | status (HCC) | procedure are in the | | | | PST | | results section. | + +--------+ + + + documented in this encounter Results CBC AND AUTO DIFF (10/01/2019 8:16 AM PST) + + + + + + | Component | Value | Ref Range | Performed | Pathologist | | | | | At | Signature | + + + + + + | WHITE CELL | 4.23 | 3.50 - 10.80 | [facility] | | | COUNT | | K/cu mm | LABORATORY | | | | | | SERVICES, | | | | | | CORE | | + + + + + + | RED CELL | 3.29 (L) | 4.50 - 6.00 | [facility] [...] + + + | HEMATOCRIT | 30.8 (L) | 41.0 - 53.0 % | [facility] | | | | | | LABORATORY | | | | | | SERVICES, | | | | | | CORE | | + + + + + + | MCV | 93.6 | 80.0 - 100.0 fL | [facility] [...] + + + | RDW SD | 51.8 (H) | 35.1 - 46.3 fL | [facility] | | | | | | LABORATORY | | | | | | SERVICES, | | | | | | CORE | | + + + + + + | PLATELET | 121 (L) | 150 - 400 K/cu | [...] + + + + | NEUTROPHIL | 70.4 (H) | 50.0 - 70.0 % | [facility] | | | % | | | LABORATORY | | | | | | SERVICES, | | | | | | CORE | | + + + + + + | LYMPHOCYTE | 22.5 | 18.0 - 42.0 % | [facility] | | | % | | | LABORATORY | | | | | | SERVICES, | | | | | | CORE | | + + + + + + | MONOCYTE % | 4.3 | 3.5 - 9.0 % | [facility] [...] + + + + | NEUTROPHIL | 2.98 | 1.80 - 7.70 | [facility] | | | # | | K/cu mm | LABORATORY | | | | | | SERVICES, | | | | | | CORE | | + + + + + + | LYMPHOCYTE | 0.95 (L) | 1.00 - 4.80 | [facility] [...] | + + + + + | [facility] | [address] | [place] [address] | | | SERVICES, CORE | MOIESS [...] [facility] | [address] | [place] [address] | | | SERVICES, CORE | PARK [...] | Test performed by immunoassay using Palafox Publisher Assistant i2000. . | [facility] | | Samples [...] [facility] | [address] | [place] [address] | | | SERVICES, SPECIAL | PARK [...] [facility] | [address] | [place] [address] | | | SERVICES, CORE | PARK [...] [facility] | [address] | [place] [address] | | | SERVICES, CORE | PARK [...] + + | [facility] | [address] [facility] [address] [address] | [place] [address] | | | SERVICES, CORE | MOISES [...] [facility] | [address] | [place] [address] | | | SERVICES, ARTIS | [address] | | | + + + + + documented in this encounter Visit Diagnoses + + | Diagnosis | + + | Liver transplant status (HCC) | + + documented in this encounter"
--- OUTSIDE RECORDS SUMMARY | ~2020-07-29 | XMS | Encounter Summary ---
Demographics + + + | Address | [address] | | | [place] [address] | + + + | Home Phone [...] [place] | | | | | [address] | | + + + + + Care Team Providers + +------+ + | Care Hand Cultivator Name | Role | Phone | + +------+ + | Sharon David MD | PCP | | + +------+ + Encounter Details +--------+ + + + + | Date | Type | Department | Care Team | Description | +--------+ + + + + | 08/17/ | Pharmacy | [facility]patient [facility] | | | | 2018 | Visit | [facility] | | | | | | [address] | | | | | | Loop [place], [place] | | | | | | [address] | | | | | | [phone] | | | +--------+ + + + [...] Rd | | | | | | [place], [place] | | | | | | [address] | | | | | | [phone] | | | | | | | | +--------+ + + + + | 09/27/ | Telephone-S | Liver Transplant | Vimal Crowe MD | | | 2019 | cheduled | | [address] | | | | | | [facility] [place], | | | | | | [place] [address] | | | | | | [phone] | | | | | | | [...] | | | | | | [place], [place] | | | | | | [address] | | | | | | [phone] | | | | | | | | +--------+ + + + + documented as of this encounter Visit Diagnoses Not on filedocumented in this encounter"
--- OUTSIDE RECORDS SUMMARY | ~2020-07-29 | XMS | Encounter Summary ---
Demographics + + + | Address | [address] | | | [place] [address] | + + + | Home Phone | | + + + | Preferred Language | Unknown | + + + | Marital Status | Single | + + + | Presybeterian Affiliation | Unknown | + + + | Race | White | + + + | Ethnic Group | Not or | + + + Author + + + | Author | [facility] | | | and [place] | + + + | Organization | [facility] | | | and [place] | + + + | Address | Unknown | + + + | Phone | Unavailable | + + + Support + + +---------+ + | Name | Relationship | Address | Phone | + + +---------+ + | Kavya Langley | JESSE | Unknown | | + + +---------+ + Care Team Providers + +------+ + | Care Bottom Filler Name | Role | Phone | + +------+ + | Sharon David MD | PCP | | + +------+ + Encounter Details +--------+ + + + + | Date | Type | Department | Care Team | Description | +--------+ + + + + | 07/07/ | Documentati | [facility] | Chen Alan, | | | 2020 | on | CARDIOLOGY HIPOLITO | MD [address] | | | | | [address] | [place], [place] | | | | | [place], [place] | [address] | | | | | [address] | | | | | | [phone] | | | +--------+ + + + [...] documented as of this encounter Progress Notes Chen Alan MD - 07/07/2020 11:28 AM PDTDiscussed with the patient after getting in contact with the liver transplant team from [facility]. Still didn't receive any cardiology noted from the [facility] team. Discussed also with the transplant pharmacist, will start patient on low dose Apixaban 2.5 mg bid. Patient noted to have episodes of atrial fibrillation, also impaired systolic function. Will continue following. documented in this encounter Plan of Treatment +--------+---------+ + + + | Date | Type | Specialty | Care Team | Description | +--------+---------+ + + + | 12/22/ | Office | Cardiology | Shannan Almanza | | | 2020 | Visit | | [address] | | | | | | [address] | | | | | | [place] [address] | | | | | | [phone] | | | | | | | | +--------+---------+ + + + documented as of this encounter Visit Diagnoses Not on filedocumented in this encounter"
--- OUTSIDE RECORDS SUMMARY | ~2020-07-29 | XMS | Encounter Summary ---
Demographics + + + | Address | [address] | | | [place] [address] | + + + | Home Phone [...] [place] | | | | | [address] | | + + + + + Care Team Providers + +------+ + | Care Quarter Trimmer Name | Role | Phone | + +------+ + | Sharon David MD | PCP | | + +------+ + Reason for Visit + + + | Reason | Comments | + + + | Lab Results | elevated glucose and creatinine | + + + Encounter Details +--------+ + + + + | Date | Type | Department | Care Team | Description | +--------+ + + + + | 07/16/ | Documentati | Clinical | Haley Fernández, | Lab Results | | 2019 | on | Transplant Services | RN [address] | (elevated glucose | | | | [address] | [address] | and creatinine) | | | | [place], | [place], [place] | | | | | [place] [address] | [address] | | | | | [phone] | | | +--------+ + + + [...] Telephone Encounter - Haley Fernández RN - 07/16/2019 3:52 PM PDTReviewed 07/16/19 listi ng labs - PCP office Dr. David notified of elevated glucose and creatinine. Also notified [facility] Nephrology Dr. Canchola of elevated creatinine so that diuretic dose adjustment can be m mikki if appropriate. d ocumented in this encounter Plan of Treatment +--------+ + + + + | Date | Type | Specialty | Care Team | Description | +--------+ + + + + | 08/08/ | Telephone-S | Nephrology | Angélica Chao, | | | 2019 | [place] | | [address] | | | | | | [address] | | | | | | [place], [place] | | | | | | [address] | | | | | | [phone] | | | | | | | | +--------+ + + + + | 09/27/ | Telephone-S | Liver Transplant | Vimal Crowe MD | | | 2019 | cheduled | | [address] | | | | | | [address], | | | | | | [place] [address] | | | | | | [phone] | | | | | | | | +--------+ + + + + | 10/03/ | Appointment | Cardiology | | | | 2019 | | | | | +--------+ + + + + | 10/03/ | Office | Cardiology | Cyril Samuel | | | 2019 | Visit | | MD Patricia [address] [facility] | | | | | | [address] | | | | | | [place] | | | | | | [address] | | | | | | [phone] | | | | | | | | +--------+ + + + + documented as of this encounter Visit Diagnoses Not on filedocumented in this encounter"
--- OUTSIDE RECORDS SUMMARY | ~2020-07-29 | XMS | Encounter Summary ---
Demographics + + + | Address | [address] | | | [place] [address] | + + + | Home Phone [...] [place] | | | | | [address] | | + + + + + Care Team Providers + +------+ + | Care Proteomics Scientist Name | Role | Phone | [...] | [address] | [address] [place], | | | | | [place], | [place] [address] | | | | | [place] [address] | [phone] | | | | | [phone] | | | +--------+ + + + [...] Rd | | | | | | [place], [place] | | | | | | [address] | | | | | | [phone] | | | | | | | | +--------+ + + + + | 09/27/ | Telephone-S | Liver Transplant | Vimal Crowe MD | | | 2019 | [place] | | [address] | | | | | | [facility] [address] [place], | | | | | | [place] [address] | | | | | | [phone] | | | | | | | | +--------+ + + + + | 10/03/ | Appointment | Cardiology | | | | 2019 | | | | | +--------+ + + + + | 10/03/ | Office | Cardiology | Cyril Samuel | | | 2019 | Visit | Darren Gomez MD [address] | | | | | | [address] | | | | | | [place], [place] | | | | | | [address] | | | | | | [phone] | | | | | | | [...] + + | [facility] - | [address] | [place], [place] | [phone] | | [place] | | | | + + + + + documented in this encounter Visit Diagnoses Not on filedocumented in this encounter"
--- OUTSIDE RECORDS SUMMARY | ~2020-07-29 | XMS | Encounter Summary ---
Demographics + + + | Address | [address] | | | [place] [address] | + + + | Home Phone [...] [place] | | | | | [address] | | + + + + + Care Team Providers + +------+ + | Care Packer Fuser Name | Role | Phone | + [...] S | [address] | Transplant-2 | | | | [address] | [address] [place], | | | | | [address] [facility] | [place] [address] | | | | | [facility], | [phone] | | | | | [facility] | | | | | | [place], [place] | | | | | | [address] | | | | | | [phone] | | | +--------+ + + + [...] | | 2019 | [place] | | [address] | | | | | | [address] | | | | | | [place], [place] | | | | | | [address] | | | | | | [phone] | | | | | | | | +--------+ + + + + | 09/27/ | Telephone-S | Liver Transplant | Vimal Crowe MD | | | 2019 | cheduled | | [address] | | | | | | [address], | | | | | | [place] [address] | | | | | | [phone] | | | | | | | | +--------+ + + + + | 10/03/ | Appointment | Cardiology | | | | 2019 | | | | | +--------+ + + + + | 10/03/ | Office | Cardiology | Cyril Samuel | | | 2019 | Visit | | MD Patricia [address] | | | | | | [address] | | | | | | [place], [place] | | | | | | [address] | | | | | | [phone] | | | | | | | | +--------+ + + + + documented as of this encounter Visit Diagnoses Not on filedocumented in this encounter"
--- OUTSIDE RECORDS SUMMARY | ~2020-07-29 | XMS | Encounter Summary ---
Demographics + + + | Address | [address] | | | [place] [address] | + + + | Home Phone [...] [place] | | | | | [address] | | + + + + + Care Team Providers + +------+ + | Care Clam Dredger Name | Role | Phone | + +------+ + | Sharon David MD | PCP | | + +------+ + Encounter Details +--------+ + + + + | Date | Type | Department | Care Team | Description | +--------+ + + + + | 06/22/ | Pharmacy | [facility] | | | | 2020 | Visit | [address] | | | | | | [address] | | | | | | [place] [address] | | | | | | [phone] | | | +--------+ + + + [...] Rd | | | | | | [place], [place] | | | | | | [address] | | | | | | [phone] | | | | | | | | +--------+ + + + + | 09/27/ | Telephone-S | Liver Transplant | Vimal Crowe MD | | | 2019 | cheduled | | [address] | | | | | | [address], | | | | | | [place] [address] | | | | | | [phone] | | | | | | | [...] Rd | | | | | | [place] | | | | | | [address] | | | | | | [phone] | | | | | | | | +--------+ + + + + documented as of this encounter Visit Diagnoses Not on filedocumented in this encounter"
--- OUTSIDE RECORDS SUMMARY | ~2020-07-29 | XMS | Encounter Summary ---
Demographics + + + | Address | [address] | | | [place] [address] | + + + | Home Phone [...] [place] | | | | | [address] | | + + + + + Care Team Providers + +------+ + | Care Roller Coaster Designer Name | Role | Phone | + +------+ + | Sharon David MD | PCP | | + +------+ + Encounter Details +--------+ + + + + | Date | Type | Department | Care Team | Description | +--------+ + + + + | 07/14/ | Telephone | Liver Transplant | Adam, | | | 2019 | | at [facility] [address] | | | | [address] | [address] | | | | | [address] | [place], [place] | | | | | [place], [place] | [address] | | | | | [address] | [phone] | | | | | [phone] | | | +--------+ + + + [...] Telephone Encounter - Amaris Medina LCSW - 07/14/2019 12:36 PM PDTSocial Work Note: JACOBY called pt's sister Doreen to discuss transportation options for pt when he is called in for transplant. Doreen states she does not think it would be safe for pt to drive himself wh en called for transplant due to his health status. He does continue to drive locally. Doreen and their mother live in [place] and will fly out at the time of transplant. Doreen asked about using an ambulance service. Explained that transplant is not considered an emergency and it would be very unlikely his insurance would pay for the expense. Discussed that pt does have access to medical transportation through his insurance. Provided Doreen with corporate licensed broker informati on and encouraged her to call and ask if they would assist with last minute transportation w hen pt is called for transplant. Explained that generally, the transportation brokerages pr ovide non emergent medical transportation, however would be worth asking if this is a possib ility. Asked if pt could have a friend or neighbor drive him out. Doreen said she would "ladan e the tree" and see who she could find that might be able to assist. Brine Plant Operator asked Doreen to call back once they have a transportation plan. WINIFRED Mckenzie, CITY PLANNING AIDE Clinical Transplant Float Track Rider Pager: [phone] signed by Amaris Medina LCSW at 07/14/2019 12:52 PM PDTdocu mented in this encounter Plan of [...] Rd | | | | | | [place], [place] | | | | | | [address] | | | | | | [phone] | | | | | | | | +--------+ + + + + | 09/27/ | Telephone-S | Liver Transplant | Vimal Crowe MD | | 2019 | cheduled | | [address] | | | | | | [address], | | | | | | [place] [address] | | | | | | [phone] | | | | | | | [...] Rd | | | | | | [place] | | | | | | [address] | | | | | | [phone] | | | | | | | | +--------+ + + + + documented as of this encounter Visit Diagnoses Not on filedocumented in this encounter
--- OUTSIDE RECORDS SUMMARY | ~2020-07-29 | XMS | Encounter Summary ---
Demographics + + + | Address | [address] | | | [place] [address] | + + + | Home Phone | | + + + | Preferred Language | Unknown | + + + | Marital Status | Single | + + + | Bahai Affiliation | Unknown | + + + | Race | White | + + + | Ethnic Group | Not or | + + + Author + + + | Author | [facility] | | | and [place] | + + + | Organization | [facility] | | | and [place] [...] Team Providers + +------+ + | Care Heat Treating Operator Name | Role | Phone | + +------+ + | Sharon David MD | PCP | | + +------+ + Encounter Details +--------+ + + + + | Date | Type | Department | Care Team | Description | +--------+ + + + + | 08/05/ | Orders Only | [facility] | Martha Lundberg, | | | 2018 | | [address] | DRIER AND EVAPORATOR OPERATOR [address] | | | | | [place], [place] | [address] | | | | | [address] | [place] [address] | | | | | [phone] | [phone] | | | | | | | [...] [address] | | | | | | [place] [address] | | | | | | [phone] | | | | | | | | +--------+---------+ + + + documented as of this encounter Procedures + +--------+ + + + | Procedure Name | Priori | Date/Time | Associated Diagnosis | Comments | | | ty | | | | + +--------+ + + + | HISTORICAL | Routin | 08/05/2018 | | Results for this | | MICROBIOLOGY RESULT | e | 10:38 AM | | procedure are in the | | | | PDT | | results section. | + +--------+ + + + documented in this encounter Results HISTORICAL MICROBIOLOGY RESULT (08/05/2018 10:38 AM PDT) + + | Specimen | + + | | + + + + + | Narrative | Performed At | + + + | CYTOGENETICS See Below Report | EXTERNAL LAB | | Number: [id number] CLINICAL DATA See Notes History of | | | thrombocytopenia, macrocytic anemia, alcoholic cirrhosis, and | | | splenomegaly. Treatment includes transfusions and IV iron. Lab | | | results: iron saturation 76%, vitamin B12 1791, LDH 403. Evaluate for | | | primary bone marrow disorder. FISH See Notes nuc desiree | | | 3q26.2(MECOMx2)[200] nuc desiree | | | 5p15.31(Y5W903,P2W3674)x2,5q31(EGR1x2)[200] nuc desiree | | | 7p11(EGFRx2),7q31(U3H555t9)[200] nuc desiree 8cen(D8Z2x2)[200] nuc desiree | | | 11q23(HUY3Ni0)[200] nuc desiree 12p13(ETV6x2)[200] nuc desiree | | | 17p13.1(TP53x2),17cen(C10E5g4)[200] nuc desiree 19q12(F79J0202b8)[200] | | | nuc desiree 20q12(G36V098n4)[200] FISH INTERPRETATION See Notes | | | FISH analysis for MECOM, 5p/5q, 7p11/7q31, chromosome 8, KMT2A | | | (MLL), ETV6, TP53, chromosome 19 and 20q: NORMAL results. | | | | | | These studies, utilizing probes specific for aberrations commonly | | | associated with myelodysplastic syndromes (MDS), do not detect | | | aberrations in th e 200 nuclei/probe examined. CORRELATION | | | STATEMENT See Notes Cytogenetic testing results are reviewed | | | and correlated with clinical information and other laboratory | | | findings. PERFORMING LAB See Notes FISH technical | | | component is performed at [facility], located at [address], | | | [place], [place], [facility] (CLIA ID# [id number], CAP# [id number]). FISH | | | professional interpretation is performed at [facility], located at [address] | | | [place], [address] (CLIA ID# [id number], CAP# | | | [id number]). FISH images can be made | | | available through [facility] upon request to Client Services. | | | PERFORMING LAB - FISH See Notes Single probes=4, Multiplex | | | probes=5 ELECTRONIC SIGNATURE See Notes Electronically | | | signed by: Meg Mena M.D. | | | 08/12/2018 Sr Hematopathologist Electronically | | | signed by: Meg ZAZUETA | | | 08/12/2018 Cosmetology Instructor, Cytogenetics REPORT | | | LINK See Notes | | | [email or web address] LEGAL DISCLAIMER | | | See Notes The clinical results included as plain text in this HL7 | | | electronic file transmission DO NOT represent the complete results | | | of the tests performed by [facility] for this patient. We strongly | | | encourage you to consult the full report attached to this | | | transmission or access the full report on our secure web site at | | | [email or web address] | | | See Below Report Number: [id number] CLINICAL DATA | | | See Notes History of thrombocytopenia, macrocytic anemia, | | | alcoholic cirrhosis, and splenomegaly. Treatment includes | | | transfusions and IV iron. Lab results: iron saturation 76%, vitamin | | | B12 1791, LDH 403. Evaluate for primary bone marrow disorder. | | | Accompanying CBC report received from the ordering facility, dated | | | 08/05/18, indicates WBC 5.79 K/uL, RBC 1.85 M/uL, Hgb 6.3 g/dL, HCT | | | 17.4%, MCV 94.0 fL, MCH 34.0 pg, MCHC 36.2 g/dL, RDW 63.4%, platelets | | | 94 K/uL with a differential count of neutrophils 61.41%, lymphocytes | | | 23.84%, monocytes 9.72%, eosinophils 4.17%, basophils 0.86%. FINAL | | | DIAGNOSIS See Notes NORMOCELLULAR MARROW WITH TRILINEAGE | | | HEMATOPOIESIS AND WITH NORMAL FISH RESULT ASSESSMENT See | | | Notes Reportedly, this patient has a history of thrombocytopenia, | | | macrocytic anemia, alcoholic cirrhosis, and splenomegaly. Treatment | | | includes transfusions and IV iron. Normocellular marrow for age | | | demonstrates triline age hematopoiesis, erythroid hyperplasia and | | | polytypic plasma cell proliferation (R5-7%). Megakaryocytes are | | | present and show normal morphology; however, quantitation could not | | | be assessed on this small core. Aspirate smears and touch prep show | | | non-specific degenerative changes, which interfere with evaluation | | | for dysplasia. Flow cytometry demonstrates no significant phenotypic | | | abnormalities, no monoclonal plasma cells, and no increase in blasts. | | | FISH analysis for aberrations commonly associated with | | | myelodysplastic syndromes reveals normal results. Findings in this | | | patient's marrow are non-specific and likely reactive. While | | | significant dyspoietic changes are not seen, an early myelodysplastic | | | syndrome cannot be completely excluded. Correlation with other | | | clinical data and patient's follow up as clinically indicated and | | | feasible is also recommended. The work-up of this case included | | | review of all submitted clinical and laboratory information, which in | | | conjunction wit h the morphologic findings, helped direct the | | | selection of laboratory testing. 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 CYTOGENETICS/FISH | | | See Notes FISH analysis for MECOM, 5p/5q, 7p11/7q31, chromosome 8, | | | KMT2A (MLL), ETV6, TP53, chromosome 19 and 20q: NORMAL results. These | | | studies, utilizing probes specific for aberrations commonly | | | associated with myelodysplastic syndromes (MDS), do not detect | | | aberrations in the 200 nuclei/probe examined. DIAGNOSTIC RATIONALE | | | See Notes L aboratory workup of cytopenia includes | | | immunophenotypic analysis of subsets of peripheral blood and bone | | | marrow hematopoietic cells, and morphologic evaluation with the | | | appropriate cytochemical and IHC stains for the identification of | | | dyspoiesis, abnormal/neoplastic populations, and infiltrative | | | processes, in addition to cytogenetic/molecular testing for the | | | identification of clonal abnormalities. ELECTRONIC SIGNATURE | | | See Notes Electronically signed by: Date | | | Anderson Mena M.D. 08/14/2018 Sr | | | Hematopathologist REPORT LINK See Notes | | | [email or web address] LEGAL DISCLAIMER | | | See Notes The clinical results included as plain text in this HL7 | | | electronic file transmission DO NOT represent the complete results | | | of the tests performed by [facility] for this patient. We strongly | | | encourage you to consult the full report attached to this | | | transmission or access the full report on our secure web site at | | | [email or web address] FLOW CYTOMETRY | | | See Below Report Number: [id number] CLINICAL DATA | | | See Notes History of thrombocytopenia, macrocytic anemia, | | | alcoholic cirrhosis, and splenomegaly. Treatment includes | | | transfusions and IV iron. Lab results: iron saturation 76%, vitamin | | | B12 1791, LDH 403. CLINICAL QUESTION See Notes Evaluate | | | for primary bone marrow disorder. CBC See Notes | | | Accompanying CBC report received from the ordering facility, dated | | | 08/05/18, indicates WBC 5.79 K/uL, RBC 1.85 M/uL, Hgb 6.3 g/dL, HCT | | | 17.4%, MCV 94.0 fL, MCH 34.0 pg, MCHC 36.2 g/dL, RDW 63.4%, platelets | | | 94 K/uL with a differential count of neutrophils 61.41%, lymphocytes | | | 23.84%, monocytes 9.72%, eosinophils 4.17%, basophils 0.86%. 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 | | | INTERPRETATION See Notes The integrity of the specimen is | | | suitable for analysis. B-ce lls show normal antigen | | | expression, and the kappa:lambda ratio is normal. There is no | | | evidence of a monoclonal B-cell population. Plasma cells are not | | | significantly increased. T-cells show normal antigen expression, and | | | the CD4:CD8 ratio is normal. NK-cells are not significantly | | | increased. Granulocytes lack CD10 on majority of cells suggestive of | | | dysgranulopoiesis. Monocytes show normal antigen expression. CD34 | | | and/or [id number] blasts are not significantly increased. | | | Additional plasma cell evaluation was performed based on | | | morphologic assessment of the bone marrow and shows polytypic plasma | | | cells. The diagnosis is unchanged. No significant | | | immunophenotypic abnormalities are detected. Correlation with | | | clinical data and pending cytogenetic studies is recommended for | | | complete evaluation. ADDENDUM (original | | | report dated 08/06/18): This report is reissued to include plasma | | | cell markers and corresponding interpretation. No other changes quintana | | | ve been made. Please contact [facility] with any concerns. MARKERS | | | RUN See Notes Antibodies against the following antigens | | | were used in comprehensive multiparameter flow cytometric analysis to | | | assess various marrow cell subsets, and are each found within | | | expected limits, unless otherwise indicated in the text and/or flow | | | cytometry differential: CD2, CD3, CD4, CD5, CD7, CD8, CD10, CD11b, | | | CD13, CD14, CD16, CD19, CD20, CD33, CD34, CD38, CD45, CD56, CD64, | | | CD117, Nokomis, Lambda, HLA-DR. The additional markers | | | utilized in this case are deemed medically necessary to further | | | characterize a potentially abnormal population of | | | T-cells/NK-cells/large granular lymphocytes. CD57, CD138, cKappa, | | | cLambda. ADDITIONAL MARKERS See Notes The additional | | | markers utilized in this case are deemed medically necessary to | | | further characterize a potentially abnormal population of | | | T-cells/NK-cells/large granular lymphocytes. LYMPHOCYTES | | | 11 B-CELLS 1 KAPPA 0.4 LAMBDA 0.3 | | | KAPPA:LAMBDA RATIO 1.3 T-CELLS 7 CD4 2.6 | | | CD8 2.0 CD4:CD8 RATIO 1.3 NATURAL KILLER CELLS | | | 2 MONOCYTES 2 GRANULOCYTES 75 CD45 DIM | | | 4 PLASMA CELLS 0.7 VIABILITY 91 CD38+CD138 | | | +CKAPPA+ 0.3 CD38+CD138 +CLAMBDA+ 0.2 ELECTRONIC | | | SIGNATURE See Notes Electronically signed by: | | | Date Anderson Mena M.D. | | | 08/08/2018 Hematopathologist REPORT LINK See Notes | | | [email or web address] LEGAL DISCLAIMER | | | See Notes The clinical results included as plain text in this HL7 | | | electronic file transmission DO NOT represent the complete results | | | of the tests performed by [facility] for this patient. We strongly | | | encourage you to consult the full report attached to this | | | transmission or access the full report on our secure web site at | | | [email or web address] | | | See Below Report Number: [id number] CLINICAL DATA | | | See Notes History of thrombocytopenia, macrocytic anemia, | | | alcoholic cirrhosis, and splenomegaly. Treatment includes | | | transfusions and IV iron. Lab results: iron saturation 76%, vitamin | | | B12 1791, LDH 403. Evaluate for primary bone marrow disorder. | | | Accompanying CBC report received from the ordering facility, dated | | | 08/05/18, indicates WBC 5.79 K/uL, RBC 1.85 M/uL, Hgb 6.3 g/dL, HCT | | | 17.4%, MCV 94.0 fL, MCH 34.0 pg, MCHC 36.2 g/dL, RDW 63.4%, platelets | | | 94 K/uL with a differential count of neutrophils 61.41%, lymphocytes | | | 23.84%, monocytes 9.72%, eosinophils 4.17%, basophils 0.86%. | | | DIAGNOSIS See Notes Bone marrow aspirate smear, touch prep, | | | clot and core biopsy: - Normocellular marrow with trilineage | | | hematopoiesis with erythroid hyperplasia and mild polytypic plasma | | | cell proliferation - Increased storage iron without ring | | | sideroblasts - No significant reticulin fibrosis and no evidence of | | | amyloid BM: CELLULARITY S ee Notes Normocellular (R40%) | | | BM: DIFFERENTIAL CELL COUNT See Notes Number counted: 200 | | | cells Neutrophils and precursors: 53% (50-70) Erythroid precursors: | | | 25% (20-25) Blasts: 0% (0-3) Lymphocytes: 13% (3-15, 30-60 child) | | | Monocytes: 0% (0-6) Eosinophils: 2% (1-5) Basophils: 0% (0-2) | | | Plasma cells: 7% (0-4) BM: M:E RATIO See Notes Normal: | | | 2:1. BM: BLASTS See Notes Not significantly increased. | | | BM: MYELOPOIESIS See Notes No significant abnormalities. | | | BM: ERYTHROPOIESIS See Notes Erythroids are increased in | | | number and show no significant abnormalities. BM: MEGAKARYOPOIESIS | | | See Notes No significant abnormalities. BM: IRON | | | See Notes Stores are increased, and uptake appears increased. No ring | | | sideroblasts are identified. BM: LYMPHOCYTES See Notes | | | Lymphocytes are not increased, and atypical aggregates are not | | | identified. BM: PLASMA CELLS See Notes Plasma cells are | | | mildly increased (R5-7%), and appear to show slight kappa excess by | | | immunohistochemical stains. BM: OTHER See Notes No | | | atypical nonhematopoietic cells, granulomas or microorganisms are | | | identified. Bony trabeculae are unremarkable. DISCUSSION | | | See Notes Reportedly, this patient has a history of thrombocytopenia, | | | macrocytic anemia, alcoholic cirrhosis, and splenomegaly. Treatment | | | includes transfusions and IV iron. Normocellular marrow for age | | | demonstrates trilineage hematopoiesis, erythroid hyperplasia and | | | polytypic plasma cells proliferation (R5-7%). Megakaryocytes are | | | present and show normal morphology; however, quantitation could not | | | be assessed on this small core. Aspirate smears and touch prep show | | | non-specific degenerative changes, which interfere with evaluation | | | for dysplasia. Flow cytometry shows no significant phenotypic | | | abnormalities, no monoclonal plasma cells, and no increase in blasts. | | | Findings are likely non-specific and reactive. While significant | | | dyspoietic changes are not seen, an early myelodysplastic syndrome | | | cannot be completely excluded. Correlation with other clinical data | | | and patient's pending cytogenetic studies is also recommended. | | | Thank you for sending this case for consultation. If | | | you have any questions about this report, please call me at [phone] | | | [phone]. CYTOCHEMICAL STAINS See Notes Reticulin: No | | | significant reticulin fibrosis. Congo red: No evidence of amyloid. | | | IMMUNOHISTOCHEMICAL STAINS See Notes CD3: Positive in few | | | scattered T cells. CD20: Positive in few scattered B cells. MPO: | | | Positive in granulocytes. Glycophorin A: Positive in erythroid | | | precursors. CD42b: Positive in megakaryocytes. CD34 and CD117: No | | | increase in blasts. CD138: Plasma cells positive (R5%). Nokomis: Plasma | | | cells positive. Lambda: Plasma cells positive. REVIEWED | | | MATERIAL/SUMMARY OF STAINS See Notes Touch prep Aspirate: | | | Iron x1 Clot Core: SS x3, IHC x10 Controls stain | | | appropriately. These | | | IHCs are deemed medically necessary. Some of the antigens may also | | | be evaluated by flow cytometry. Concurrent evaluation by IHC on | | | tissue sections is indicated in this case in order to correlate | | | immunophenotype with cell morphology and characterize a potential | | | disease process not obvious by flow cytometry. GROSS DESCRIPTION | | | See Notes Received in one B+ fixative container, not labeled, | | | is a blood clot aggregate measuring 1.6 cm x 0.7 cm. Entirely | | | submitted in cassette B. Received in one B+ fixative container, not | | | labeled, is a cylindrical bone core measuring 0.5 cm. Entirely | | | submitted in cassette A after decalcification ELECTRONIC SIGNATURE | | | See Notes Electronically signed by: | | | Date Anderson Mena M.D. 08/08/2018 Sr | | | Hematopathologist REPORT LINK See Notes | | | [email or web address] LEGAL DISCLAIMER | | | See Notes The clinical results included as plain text in this HL7 | | | electronic file transmission DO NOT represent the complete | | | results of the tests performed by [facility] for this patient. We | | | strongly encourage you to consult the full report attached to this | | | transmission or access the full report on our secure web site at | | | [email or web address] | | + + + + +---------+ + + | Performing | Address | City/State/Zipcode | Phone Number | | Organization | | | | + +---------+ + + | EXTERNAL LAB | | | | + +---------+ + + documented in this encounter Visit Diagnoses Not on filedocumented in this encounter"
--- OUTSIDE RECORDS SUMMARY | ~2020-07-29 | XMS | Encounter Summary ---
Demographics + + + | Address | [address] | | | [place] [address] | + + + | Home Phone [...] [place] | | | | | [address] | | + + + + + Care Team Providers + +------+ + | Care Assistant Store Manager Sales Name | Role | Phone | + [...] | [address] | [address] [place], | | | | | [place], | [place] [address] | | | | | [place] [address] | [phone] | | | | | [phone] | | | +--------+ + + + [...] [address] | | | | | | [place], [place] | | | | | | [address] | | | | | | [phone] | | | | | | | | +--------+ + + + + | 09/27/ | Telephone-S | Liver Transplant | Vimal Crowe MD | | | 2019 | [place] | | [address] | | | | | | [facility] [address] [place], | | | | | | [place] [address] | | | | | | [phone] | | | | | | | | +--------+ + + + + | 10/03/ | Appointment | Cardiology | | | | 2019 | | | | | +--------+ + + + + | 10/03/ | Office | Cardiology | Cyril Samuel | | | 2019 | Visit | Darren Gomez MD [address] | | | | | | [address] | | | | | | [place], [place] | | | | | | [address] | | | | | | [phone] | | | | | | | [...] + | [facility] | | | [phone] | | | | | | | [place] | | | | + +---------+ + + documented in this encounter Visit Diagnoses Not on filedocumented in this encounter"
--- OUTSIDE RECORDS SUMMARY | ~2020-07-29 | XMS | Encounter Summary ---
Demographics + + + | Address | [address] | | | [place] [address] | + + + | Home Phone [...] [place] | | | | | [address] | | + + + + + Care Team Providers + +------+ + | Care Precision Agriculture Specialist Name | Role | Phone | + +------+ + | Sharon David MD | PCP | | + +------+ + Encounter Details +--------+------+ + + + | Date | Type | Department | Care Team | Description | +--------+------+ + + + | 10/29/ | Lab | [facility] at [facility] | | Liver transplant | | 2020 | | [address] | | status (HCC) | | | | [facility] | | | | | | [place], 3rd floor | | | | | | [place], [place] | | | | | | [address] | | | | | | [phone] | | | +--------+------+ + + + [...] Rd | | | | | | [facility] [place] | | | | | | [address] | | | | | | [phone] | | | | | | | | +--------+ + + + + | 09/27/ | Telephone-S | Liver Transplant | Vimal Crowe MD | | | 2019 | [place] | | [address] | | | | | | [address], | | | | | | [place] [address] | | | | | | [phone] | | | | | | | [...] Rd | | | | | | [place], [place] | | | | | | [address] | | | | | | [phone] | | | | | | | | +--------+ + + + + documented as of this encounter Procedures + +--------+ + + + | Procedure Name | Priori | Date/Time | Associated Diagnosis | Comments | | | ty | | | | + +--------+ + + + | CBC AND AUTO DIFF | Routin | 10/29/2019 | Liver transplant | Results for this | | | e | 8:10 AM | status (HCC) | procedure are in the | | | | PST | | results section. | + +--------+ + + + | CBC, WITH | Routin | 10/29/2019 | Liver transplant | Results for this | | DIFFERENTIAL | e | 8:10 AM | status (HCC) | procedure are in the | | | | PST | | results section. | + +--------+ + + + | COMPLETE METABOLIC | Routin | 10/29/2019 | Liver transplant | Results for this | | SET | e | 8:10 AM | status (HCC) | procedure are in the | | (NA,K,CL,CO2,BUN,CRE | | PST | | results section. | | AT,GLUC,CA,AST,ALT,B | | | | | | KEV TOTAL,ALK | | | | | | PHOS,ALB,PROT TOTAL) | | | | | + +--------+ + + + | TACROLIMUS, WHOLE | Routin | 10/29/2019 | Liver transplant | Results for this | | BLOOD | e | 8:10 AM | status (HCC) | procedure are in the | | | | PST | | results section. | + +--------+ + + + | PHOSPHORUS, PLASMA | Routin | 10/29/2019 | Liver transplant | Results for this | | | e | 8:10 AM | status (HCC) | procedure are in the | | | | PST | | results section. | + +--------+ + + + | BILIRUBIN DIRECT | Routin | 10/29/2019 | Liver transplant | Results for this | | | e | 8:10 AM | status (HCC) | procedure are in the | | | | PST | | results section. | + +--------+ + + + | URIC ACID, PLASMA | Routin | 10/29/2019 | Liver transplant | Results for this | | | e | 8:10 AM | status (HCC) | procedure are in the | | | | PST | | results section. | + +--------+ + + + | MAGNESIUM, PLASMA | Routin | 10/29/2019 | Liver transplant | Results for this | | | e | 8:10 AM | status (HCC) | procedure are in the | | | | PST | | results section. | + +--------+ + + + documented in this encounter Results CBC AND AUTO DIFF (10/29/2019 8:10 AM PST) + + + + + + | Component | Value | Ref Range | Performed | Pathologist | | | | | At | Signature | + + + + + + | WHITE CELL | 3.68 | 3.50 - 10.80 | [facility] | | | COUNT | | K/cu mm | LABORATORY | | | | | | SERVICES, | | | | | | CORE | | + + + + + + | RED CELL | 3.58 (L) | 4.50 - 6.00 | [facility] | | | COUNT | | M/cu mm | LABORATORY | | | | | | SERVICES, | | | | | | CORE | | + + + + + + | HEMOGLOBIN | 10.0 (L) | 13.5 - 17.5 | [facility] | | | | | g/dL | LABORATORY | | | | | | SERVICES, | | | | | | CORE | | + + + + + + | HEMATOCRIT | 32.6 (L) | 41.0 - 53.0 % | [facility] | | | | | | LABORATORY | | | | | | SERVICES, | | | | | | CORE | | + + + + + + | MCV | 91.1 | 80.0 - 100.0 fL | [facility] | | | | | | LABORATORY | | | | | | SERVICES, | | | | | | CORE | | + + + + + + | MCHC | 30.7 (L) | 32.0 - 36.0 | [facility] [...] + + + + | PLATELET | 75 (L) | 150 - 400 K/cu | [...] + + + + | NEUTROPHIL | 65.5 | 50.0 - 70.0 % | [facility] [...] + + + | MONOCYTE % | 8.2 | 3.5 - 9.0 % | [facility] | | | | | | LABORATORY | | | | | | SERVICES, | | | | | | CORE | | + + + + + + | EOS % | 3.5 (H) | 1.0 - 3.0 % | [...] + + + + | IG% | 1.1 (H) | 0.0 - 1.0 % | [facility] | | | | | | LABORATORY | | | | | | SERVICES, | | | | | | CORE | | + + + + + + | NEUTROPHIL | 2.41 | 1.80 - 7.70 | [facility] | [...] | + + + + + | [facility] | [address] | [place] [address] | | | SERVICES, CORE | MOISES [...] [facility] | [address] | [place] [address] | | | SERVICES, CORE | PARK [...] | Test performed by immunoassay using [employer] Production Line Manager i2000. . | [facility] | | Samples [...] [facility] | [address] | [place] [address] | | | SERVICES, SPECIAL | PARK [...] [facility] | [address] | [place] [address] | | | SERVICES, CORE | PARK [...] [facility] | [address] | [place] [address] | | | SERVICES, CORE | MOISES [...] | + + + + + | [facility] | [address] [address] | [place] [address] | | | SERVICES, CORE | MOISES [...] | | | LABORATORY | | | TRINIDADIAN | | | SERVICES, | | | [...] MDRD equation recommended by the National | [facility] | | Kidney Disease Education Program. Estimated [...] | + + + + + | [facility] | [address] | [place] [address] | | | SERVICES, CORE | [address] | | | + + + + + documented in this encounter Visit Diagnoses + + | Diagnosis | + + | Liver transplant status (HCC) | + + documented in this encounter"
--- OUTSIDE RECORDS SUMMARY | ~2020-07-29 | XMS | Encounter Summary ---
Demographics + + + | Address | [address] | | | [place] [address] | + + + | Home Phone [...] [place] | | | | | [address] | | + + + + + Care Team Providers + +------+ + | Care Datapower Consultant Name | Role | Phone | + +------+ + | Sharon David MD | PCP | | + +------+ + Encounter Details +--------+------+ + + + | Date | Type | Department | Care Team | Description | +--------+------+ + + + | 09/16/ | Lab | [facility] at [facility] | | Liver transplant | | 2019 | | [address] | | status (HCC) | | | | [facility] | | | | | | [place], 3rd floor | | | | | | [place], [place] | | | | | | [address] | | | | | | [phone] | | | +--------+------+ + + + [...] [place] | | | | | | [address] | | | | | | [phone] | | | | | | | | +--------+ + + + + | 09/27/ | Telephone-S | Liver Transplant | Vimal Crowe MD | | | 2019 | [place] | | [address] | | | | | | [address], | | | | | | [place] [address] | | | | | | [phone] | | | | | | | [...] Rd | | | | | | [place], [place] | | | | | | [address] | | | | | | [phone] | | | | | | | | +--------+ + + + + documented as of this encounter Procedures + +--------+ + + + | Procedure Name | Priori | Date/Time | Associated Diagnosis | Comments | | | ty | | | | + +--------+ + + + | CBC AND AUTO DIFF | Routin | 09/16/2019 | Liver transplant | Results for this | | | e | 7:56 AM | status (HCC) | procedure are in the | | | | PST | | results section. | + +--------+ + + + | CBC, WITH | Routin | 09/16/2019 | Liver transplant | Results for this | | DIFFERENTIAL | e | 7:56 AM | status (HCC) | procedure are in the | | | | PST | | results section. | + +--------+ + + + | COMPLETE METABOLIC | Routin | 09/16/2019 | Liver transplant | Results for this | | SET | e | 7:56 AM | status (HCC) | procedure are in the | | (NA,K,CL,CO2,BUN,CRE | | PST | | results section. | | AT,GLUC,CA,AST,ALT,B | | | | | | KEV TOTAL,ALK | | | | | | PHOS,ALB,PROT TOTAL) | | | | | + +--------+ + + + | TACROLIMUS, WHOLE | Routin | 09/16/2019 | Liver transplant | Results for this | | BLOOD | e | 7:56 AM | status (HCC) | procedure are in the | | | | PST | | results section. | + +--------+ + + + | PHOSPHORUS, PLASMA | Routin | 09/16/2019 | Liver transplant | Results for this | | | e | 7:56 AM | status (HCC) | procedure are in the | | | | PST | | results section. | + +--------+ + + + | BILIRUBIN DIRECT | Routin | 09/16/2019 | Liver transplant | Results for this | | | e | 7:56 AM | status (HCC) | procedure are in the | | | | PST | | results section. | + +--------+ + + + | URIC ACID, PLASMA | Routin | 09/16/2019 | Liver transplant | Results for this | | | e | 7:56 AM | status (HCC) | procedure are in the | | | | PST | | results section. | + +--------+ + + + | MAGNESIUM, PLASMA | Routin | 09/16/2019 | Liver transplant | Results for this | | | e | 7:56 AM | status (HCC) | procedure are in the | | | | PST | | results section. | + +--------+ + + + documented in this encounter Results CBC AND AUTO DIFF (09/16/2019 7:56 AM PST) + + + + + + | Component | Value | Ref Range | Performed | Pathologist | | | | | At | Signature | + + + + + + | WHITE CELL | 4.04 | 3.50 - 10.80 | [facility] | | | COUNT | | K/cu mm | LABORATORY | | | | | | SERVICES, | | | | | | CORE | | + + + + + + | RED CELL | 2.81 (L) | 4.50 - 6.00 | [facility] [...] + + + + | HEMATOCRIT | 27.9 (L) | 41.0 - 53.0 % | [facility] | | | | | | LABORATORY | | | | | | SERVICES, | | | | | | CORE | | + + + + + + | MCV | 99.3 | 80.0 - 100.0 fL | [facility] [...] + + + | RDW SD | 59.4 (H) | 35.1 - 46.3 fL | [facility] | | | | | | LABORATORY | | | | | | SERVICES, | | | | | | CORE | | + + + + + + | PLATELET | 137 (L) | 150 - 400 K/cu | [...] + + + + | NEUTROPHIL | 67.6 | 50.0 - 70.0 % | [facility] | | | % | | | LABORATORY | | | | | | SERVICES, | | | | | | CORE | | + + + + + + | LYMPHOCYTE | 21.3 | 18.0 - 42.0 % | [facility] | | | % | | | LABORATORY | | | | | | SERVICES, | | | | | | CORE | | + + + + + + | MONOCYTE % | 7.4 | 3.5 - 9.0 % | [facility] | | | | | | LABORATORY | | | | | | SERVICES, | | | | | | CORE | | + + + + + + | EOS % | 2.5 | 1.0 - 3.0 % | [facility] | | | | | | LABORATORY | | | | | | SERVICES, | | | | | | CORE | | + + + + + + | BASO % | 1.0 | 0.0 - 2.0 % | [facility] [...] + + + + | NEUTROPHIL | 2.73 | 1.80 - 7.70 | [facility] | | | # | | K/cu mm | LABORATORY | | | | | | SERVICES, | | | | | | CORE | | + + + + + + | LYMPHOCYTE | 0.86 (L) | 1.00 - 4.80 | [facility] [...] | + + + + + | [facility] | [address] | [place] [address] | | | SERVICES, CORE | MOISES [...] LABORATORY | [address] | [place] [address] | | | SERVICES, CORE | PARK [...] | Test performed by immunoassay using [employer] Fire Department Battalion Chief i2000. . | [facility] | | Samples [...] [facility] | [address] | [place] [address] | | | SERVICES, SPECIAL | PARK [...] [facility] | [address] | [place] [address] | | | SERVICES, CORE | PARK [...] [facility] | [address] | [place] [address] | | | SERVICES, CORE | PARK [...] | + + + + + | [facility] | [address] [facility] | [place] [address] | | | SERVICES, CORE | MOISES [...] | | | LABORATORY | | | FILIPINO | | | SERVICES, | | | [...] | + + + + + | [facility] | [address] [facility] | [place] [address] | | | ARTIS TAYLOR | [address] | | | + + + + + documented in this encounter Visit Diagnoses + + | Diagnosis | + + | Liver transplant status (HCC) | + + documented in this encounter"
--- OUTSIDE RECORDS SUMMARY | ~2020-07-29 | XMS | Encounter Summary ---
Demographics + + + | Address | [address] | | | [place] [address] | + + + | Home Phone [...] [place] | | | | | [address] | | + + + + + Care Team Providers + +------+ + | Care Chandelier Maker Name | Role | Phone | + +------+ + | Sharon David MD | PCP | | + +------+ + Reason for Visit + + + | Reason | Comments | + + + | New patient | | | consultation | | + + + Consultation (Urgent) [...] liver with | [address] [place] | | | | | ascites | [address] | [address] [facility], | | | | | (HCC) | [place], [place] | [place] | | | | | Preoperative | [address] | [address] | | | | | examination | Phone: | Phone: | | | | | Internal | [phone] | [phone] | | | | | organ | Fax: | Fax: | | | | | deficiencies | [phone] | [phone] | | | | | Procedures | [...] + + | 05/20/ | Office | Infectious | James Recinos MD | Reaction to | | 2019 | Visit | [facility] | [address] | QuantiFERON-TB test | | | | [address] | [address] | (Primary Dx); | | | | [address] [facility] | [place], [place] | Pre-transplant | | | | [address], 3rd floor | [address] | evaluation for | | | | [place], [place] | [phone] | chronic liver | | | | [address] | | disease | | | | [phone] | | | +--------+---------+ + + + [...] + + + | Blood Pressure | 103/51 | 05/20/2019 9:49 AM | | | | | PDT | | + + + + + | Pulse | 58 | 05/20/2019 9:49 AM | | | | | PDT | | + + + + + | Temperature | 35.9 C (96.6 F) | 05/20/2019 9:49 AM | | | | | PDT | | + + + + + | Respiratory Rate | - | - | | + + + + + | Oxygen Saturation | 100% | 05/20/2019 9:49 AM | | | | | PDT | | + + + + + | Inhaled Oxygen | - | - | | | Concentration | | | | + + + + + | Weight | 88 kg (194 lb) | 05/20/2019 9:49 AM | | | | | PDT | | + + + + + | Height | 180.3 cm (5' 11") | 05/20/2019 9:49 AM | | | | | PDT | | + + + + + | Body Mass Index | 27.06 | 05/20/2019 9:49 AM | | | | | PDT [...] documented as of this encounter Progress Notes Theresa Robert MD - 05/20/2019 9:45 AM PDT Infectious Disease Initial Consult Note Chief complaint: Indeterminate quantiferon TB result, equivoqual strongyloides serology HPI: Steffen Duran is a 54 y.o. Male. 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 He has an hepatorenal syndrome. He is currently under investigation for a potential liver cox splant. He has chronic fatigue from his liver failure. He denies confusion. He also denies pulmonar y symptoms. He denies fever or night sweats. He has lost weight last year when is developed pneumonia 06/2018. His weight has stabilized since. His appetite is decreased. He is seen today with his mother and sister. They help him to care for himself and are also of christiano help to complete epidemiology review. He was born in [place]. He only traveled o [place] of the twice. He went to [place] on 2 different trips ( 4 days and 0.5 days). He lived also in [place] and [place] in the past. He was never incarcerated. He never tried IV o r inhaled drugs. He stopped drinking. He and his family members deny any contact with TB or persons having chronic chest infection. 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 ROS: 14 point was conducted. All negative with exception of those pertinent positives in H PI above Past Medical History: Past Medical History: Diagnosis Date Cirrhosis (HCC) CKD (chronic kidney disease) Hepatorenal syndrome Transfusion dependant spur cell anemia Iron cardiac and hepatic overload Liver failure Past Surgical History: Past Surgical History Procedure Laterality Date Leg surgery Medications: deferiprone 500 mg oral tablet, Take 4 tablets (2,000mg) by mouth three times daily. furosemide 20 mg oral tablet, Take 2 tablets by mouth two times daily. lactulose 10 gram/15 mL oral solution, Take 15 mL by mouth two times daily. metoprolol tartrate 25 mg oral tablet, Take 0.5 tablets by mouth every six hours. Indicatio ns: Paroxysmal Supraventricular Tachycardia spironolactone 100 mg oral tablet, Take 1 tablet by mouth once daily. Immunization History: Immunization History Administered Date(s) Administered HepA-HepB 03/03/2019, 04/06/2019 PCV13 04/06/2019 Tdap 07/24/2016 Social History: Never smoked Family History: No TB exposure Vitals: BP 103/51 (BP Location: Right upper arm, Patient Position: Sitting) | Pulse 58 | Temp 35. 9 C (96.6 F) (Forehead) | Ht 1.803 m (5' 11") | Wt 88 kg (194 lb) | SpO2 100% | BMI 27.06 kg/m | BSA 2.1 m Body mass index is 27.06 kg/m. @TMAX(24)@ @IOBRIEF@ Exam: Alert and Oriented. Appropriate. NAD HEENT: Conj/Sclera white and quiet. PERRLA. EOMI. OP: Clear. No exudate or lesions noted. Tongue midline. Neck: supple. No lymphadenopathy or thyromegaly. No JVD Respiratory: CTA. No wheezes, rales, rhonci. Good air movement throughout Cardiovascular: RRR. No murmurs/rubs/gallops. Gastrointestinal/Abd: soft, NT/ND. No HSM or masses Musc/Skel/Extrem: no clubbing/cyanosis/edema Skin: no rash or lesions Neuro: CN 2-12 intact. Gait normal. Basic Labs: Labs: Lab Results Lab Test Name Results Date/Time HB 8.5 04/24/19 HB 7.2 03/11/19 WBC 6.57 04/24/19 WBC 7.4 03/11/19 PLT 49 04/24/19 PLT 65 03/11/19 NA 131 04/24/19 NA 130 03/11/19 K 4.6 04/24/19 K 4.9 03/11/19 CL 99 04/24/19 CL 99. 03/20/1999 NEUTROPERC 70.0 04/22/19 LYMPHPERC 18.6 04/22/19 MONOPERC 9.3 04/22/19 EOSPERC 1.2 04/22/19 BUN 43 04/24/19 BUN 57 03/11/19 CR 1.20 04/24/19 CR 1.61 04/06/19 CR 1.5 11/19/18 GLU 115 04/24/19 GLU 179 03/11/19 CA 8.6 04/24/19 TBILI 9.9 04/24/19 TBILI 12.6 04/06/19 TP 6.7 04/24/19 DIRBILI 4.0 4/25/19 ALB 2.5 04/24/19 ALB 3.0 04/06/19 AST 69 04/24/19 AST 74 04/06/19 ALT 40 04/24/19 ALT 40 04/06/19 [id number] 19.9 04/21/19 Micro: 04/2019 HIV negative Hep A IgG + Hep B surface Ab, Ag and core Ab negative -> not immunized Hep C Ab negative Quantiferon TB: indeterminate QUANTIFERON MITOGEN MINUS NIL IU/mL 0.44 QUANTIFERON NIL IU/mL 0.16 Comment: Performed by [facility], [address] [place] [address], [facility] [place] [address] [email or web address], Harley Coates MD, Lab. Director QUANTIFERON TB PLUS GOLD Negative Indeterminate Strongyloides STRONGYLOIDES AB, IGG <=0.9 IV 1.0High Comment: INTERPRETIVE INFORMATION: Strongyloides Ab, IgG by NISSA 0.9 IV or less....... Negative - No significant level of Strongyloides IgG antibody detected. 1.0 IV................Equivocal - The Strongyloides IgG antibody result is borderline and therefore inconclusive. Recommend retesting the patient in 2-4 weeks, if clinically indicated. 1.1 IV or greater ... Positive - IgG antibodies to Strongyloides detected, which may suggest current or past infection. Toxoplasma negative VZ IgG positive Rubella: immune Mumps: immune Measles: immune HSV 1/2 Ab: positive IgG and IgM CMV IgG positive Histopathology: No results found for: SURGPATH Imaging: No results found for: CTCHEST X-ray Chest 2 View Result Date: 04/21/2019 [...] initiated: Bakari Paredes MD 04/21/2019 4:26 PM Impression 54 y.o. Male 1. Alcoholic cirrhosis, transfusion dependant "spur cell anemia" leading to iron overload and liver failure with hepatorenal syndrome. Needs liver transplant. 2. Absence of epidemiologic risk factors for tuberculosis, previous exposure unlikely, test ing result indeterminate most likely caused by relative immunosuppression with liver and kid shell disease. No evidence of active disease. 3. Absence of epidemiologic risk factors for strongyloides, previous exposure unlikely, fal se positive frequent in low risk population. Plan No further testing is needed at this point. Quantiferon not reliable. Decision is based on risk factors and pitfalls of available tests . Same for Strongyloides. FU prn only Theresa Robert MD INFECTIOUS DISEASES AT [facility] [address]RD FLO[address] [place] [address] Mailcode: [id number] [place] [address] [email or web address] signed by Theresa Robert MD at 06/02/2019 2:11 PM PDT Associated attestation - James Recinos MD - 06/02/2019 2:11 PM PDTINFECTIOUS DISEASE STA FF ADDENDUM I saw patient and performed pertinent aspects of the history and physical and have verified the findings of Dr. oRbert with the additional comments: The "indeterminant" quantiferon is not because the result is somewhere between positive and negative but rather because the positive control of the test (mitogen) did not react, makin g the test uninterruptable. However, he has almost no meaningful risk factors for prior TB e xposure, so I do not think repeat testing is needed in this setting as a false positive resu lt would be statistically far more positive than a true positive if a repeat test was positi ve. Re his "equivocal" strongyloides, some similar themes apply in that he has no meaningful ep idemiologic exposures. In this setting the result is most likely a false positive, with the additional component that the result isn't even high enough to be truly positive on it's own . I don't think repeat testing or additional evaluation is needed here either. I'm comfortable with him moving forward with the rest of his pre-transplant evaluation. I spent 55 minutes with this patient of which greater than 50% was spent counseling the pat ient regarding the differential diagnosis, diagnostic options, treatment options, and plan g oing forward. James Recinos MD INFECTIOUS DISEASES AT [facility] 3RD FLOOR [address] [facility] Mailcode: [id number] [place] [address] documented in this encounter Plan of Treatment +--------+ + + + + | Date | Type | Specialty | Care Team | Description | +--------+ + + + + | 08/08/ | Telephone-S | Nephrology | Angélica Chao, | | | 2019 | [place] | | [address] [facility] [address] [facility] [address] | | | | | | [facility] | | | | | | [place], [place] | | | | | | [address] | | | | | | [phone] | | | | | | | | +--------+ + + + + | 09/27/ | Telephone-S | Liver Transplant | Vimal Crowe MD | | | 2019 | c[place] | | [address] | | | | | | [facility] [address] [place], | | | | | | [place] [address] | | | | | | [phone] | | | | | | | | +--------+ + + + + | 10/03/ | Appointment | Cardiology | | | | 2020 | | | | | +--------+ + + + + | 10/03/ | Office | Cardiology | Cyril Samuel | | | 2019 | Visit | | MD Patricia [address] [facility] | | | | | | [address] | | | | | | [place], [place] | | | | | | [address] | | | | | | [phone] | | | | | | | | +--------+ + + + + documented as of this encounter Visit Diagnoses + + | Diagnosis | + + | Reaction to QuantiFERON-TB test - Primary Nonspecific reaction to cell mediated | | immunity measurement of gamma interferon antigen response without active tuberculosis | + + | Pre-transplant evaluation for chronic liver disease Other specified pre-operative | | examination | + + documented in this encounter
--- OUTSIDE RECORDS SUMMARY | ~2020-07-29 | XMS | Encounter Summary ---
Demographics + + + | Address | [address] | | | [place] [address] | + + + | Home Phone [...] [place] | | | | | [address] | | + + + + + Care Team Providers + +------+ + | Care Human Resources Executive Name | Role | Phone | + +------+ + | Sharon David MD | PCP | | + +------+ + Encounter Details +--------+--------+ + + + | Date | Type | Department | Care Team | Description | +--------+--------+ + + + | 11/05/ | Travel | | | | | [...] Rd | | | | | | [place], [place] | | | | | | [address] | | | | | | [phone] | | | | | | | | +--------+ + + + + | 09/27/ | Telephone-S | Liver Transplant | Vimal Crowe MD | | | 2019 | [place] | | [address] | | | | | | [address], | | | | | | [place] [address] | | | | | | [phone] | | | | | | | [...] [place] | | | | | | [address] | | | | | | [phone] | | | | | | | | +--------+ + + + + documented as of this encounter Visit Diagnoses Not on filedocumented in this encounter"
--- OUTSIDE RECORDS SUMMARY | ~2020-07-29 | XMS | Encounter Summary ---
Demographics + + + | Address | [address] | | | [place] [address] | + + + | Home Phone [...] [place] | | | | | [address] | | + + + + + Care Team Providers + +------+ + | Care Radar Signal Processing Engineer Name | Role | Phone | [...] | | cirrhosis of | [address] | [facility] | | | | | liver with | [facility] | for Health | | | | | ascites | Rd | and Healing, | | | | | (HCC) | [place], [place] | Building 1, | | | | | Procedures | [address] | 1st Floor | | | | | PHYSICAL | Phone: | [place], [place] | | | | | THERAPY | [phone] | [address] | | | | | REFERRAL | | Phone: | | | | | | | [phone] | | | | | | | Fax: | | | | | | | [phone] | +--------+--------+ + + + + Encounter Details +--------+---------+ + + + | Date | Type | Department | Care Team | Description | +--------+---------+ + + + | 11/16/ | Office | [facility] Physical | Dennys Hinson, PT | Difficulty walking | | 2020 | Visit | Therapy Services at | [address] | (Primary Dx); Leg | | | | [place] [address] [place], | edema; Status post | | | | [address] | [place] [address] | liver transplant | | | | [place] [facility] | [phone] | (HCC) | | | | and Healing, | | | | | | Building 1, 1st | | | | | | Floor [place], [place] | | | | | | [address] | | | | | | [phone] | | | +--------+---------+ + + + [...] encounter Progress Notes Dennys Hinson, PT - 11/16/2019 9:15 AM PST Insurance: [place] [facility] [place] Plan[place] [facility] [place] / Product Type: Medicaid / Non-Medicare SUBJECTIVE: Doing laundry going up and down stairs 4x felt sore in legs after for a day. Foot swelling goes down by morning but it is up today this afternoon. He is preparing to return to [place] this week, last PT appt. Had hospital stay for about 2 weeks [...] months. Walking in home, outdoors-yesterday went to [place] for the day did a little walking. [...] Interpretation 54 y.o. Score 09/03/2019 09/28/2019 10/29/2019 11/16/19 5 Times Sit to Stand not tested due to pelvic swelling and pain with sit to stand Risk of recurrent falls cut off >15 s Balance problem: Younger (< 60 years): 10 sec Older (> 60 years): 14.2 sec 1x takes 8-10 sec 7.5 sec uses hands after first try as unable to rise without hands 2nd rep. Gait 25' walk Normal values: < 70 y/o 5.5 s (or 3.1 mph) 6.82 sec self selected without assistive device Unable to change speeds without becoming unsteady 5.78 s 5.12 6 min walk test 50-59 yo: male 2178' BP 147/75 Hr 75 PO2 100% Walked 770 feet No stops Post vitals 147/71 HR 82 Po2 98% Walked 1100 ft Pre BP 135/73 HR 66 PO2 98 % Post BP 142/71 HR 77 PO2 97% TUG 9.0 s 6.5 sec Walk on line 20 ft Walk back 10 feet- change in step length, stops but able to stay on straight path. Treatment: Scapular rows standing 10x Green band Shoulder IR/ER 10x [place] band Shoulder single forward chest press motion 10x pink band Tricep curls with pink band Seated knee curls x2 lbs Sit to stand 5x 2 Instructed in LE edema reduction exercises in [...] flys fl/abd LE edema exercises 11/05/2019 ASSESSMENT: Compliant with exercises and able to do more activity. Able to tolerate light resisted exe rcises with out rest breaks able to move from arms to legs and performing Anticipate no fu rther PT if he keeps up with home program, however, if he has any functional decline he shou ld follow up with PT in [facility]. FUNCTIONAL GOALS: due in 12 weeks Goal 09/03/2019 Status @ eval (09/03/2019) Status of goal (11/05/2019) 11/16/2019 Pt will be consistent and independent with home exercise program to promote self-efficacy(11/03/2018) Home exercise program initiated Appears compliant with exercises. Appears to have good compliance Pt will be able to walk 6 minutes in his age norms to show improved cardio (09/03/2019) 25 ft >6 sec 8 minutes on nu step 1100 feet 50% of his age norms but improved from 1 month ago. Patient will be able to transfer without support (09/03/2019) 2H slow and painful 1 H suppo rt 1 rep, otherwise needs 2H to complete 5x sit to stand. PLAN D/C PT , patient has a home program but if he has any decline in function or not progressin g with activity, recommend he follow up with PT in his area(returns home in a few days). This note is to serve as the discharge summary if the patient fails to attend further Physi julia Therapy appointments or contact the therapist regarding any change in their status. [facility] Scheduled Appointment time: 914 The patient was seen for a total of 45 minutes of treatment time. 45 minutes was in direct contact care as described above and on completed flow sheets. Treatment Interventions duration in minutes: Procedure: Therapeutic Exercise 45 min Frequency: 1x week Duration: 3 months (must [...] walking Next progress report 11/02/2019 Insurance: [place]or[place] [facility] [place] Plan[place] [facility] [place] / Product Type: Medicaid / Number visits authorized: 13 (09/04/2019) Number visits used: 8 Outcome Measure 09/03/2019 Activity 1 (3 point [...] [place] | | | | | | [address] | | | | | | [phone] | | | | | | | | +--------+ + + + + | 09/27/ | Telephone-S | Liver Transplant | Vimal Crowe MD | | | 2019 | [place] | | [address] | | | | | | [address], | | | | | | [place] [address] | | | | | | [phone] | | | | | | | | +--------+ + + + + | 10/03/ | Appointment | Cardiology | | | | 2019 | | | | | +--------+ + + + + | 10/03/ | Office | Cardiology | Cyril Samuel | | | 2019 | Visit | | MD Patricia [address] [facility] | | | | | | [address] | | | | | | [place], [place] | | | | | | [address] | | | | | | [phone] | | | | | | | | +--------+ + + + + documented as of this encounter Procedures + +--------+ + + + | Procedure Name | Priori | Date/Time | Associated Diagnosis | Comments | | | ty | | | | + +--------+ + + + | [place] THERAPEUTIC | Routin | 11/16/2019 | Difficulty walking | | | EXERCISES | e | 1:58 PM | Leg edema Status | | [...]
--- OUTSIDE RECORDS SUMMARY | ~2020-07-29 | XMS | Encounter Summary ---
Demographics + + + | Address | [address] | | | [place] [address] | + + + | Home Phone [...] [place] | | | | | [address] | | + + + + + Care Team Providers + +------+ + | Care Upholstery Mechanic Name | Role | Phone | + +------+ + | Sharon David MD | PCP | | + +------+ + Encounter Details +--------+------+ + + + | Date | Type | Department | Care Team | Description | +--------+------+ + + + | 05/19/ | Lab | [facility] at [facility] | | Alcoholic cirrhosis | | 2019 | | [address] | | of liver with | | | | Loop Phys[facility]'s | | ascites (HCC) | | | | Pavilion, 3rd floor | | | | | | [place], [place] | | | | | | [address] | | | | | | [phone] | | | +--------+------+ + + + [...] Rd | | | | | | [place], [place] | | | | | | [address] | | | | | | [phone] | | | | | | | | +--------+ + + + + | 09/27/ | Telephone-S | Liver Transplant | Vimal Crowe MD | | | 2019 | [place] | | [address] | | | | | | [address], | | | | | | [place] [address] | | | | | | [phone] | | | | | | | | +--------+ + + + + | 10/03/ | Appointment | Cardiology | | | | 2019 | | | | | +--------+ + + + + | 10/03/ | Office | Cardiology | Cyril Samuel | | | 2019 | Visit | Darren Gomez MD [address] | | | | | | [address] | | | | | | [place], [place] | | | | | | [address] | | | | | | [phone] | | | | | | | | +--------+ + + + + documented as of this encounter Procedures + +--------+ + + + | Procedure Name | Priori | Date/Time | Associated Diagnosis | Comments | | | ty | | | | + +--------+ + + + | NICOTINE + | Routin | 05/19/2019 | Alcoholic | Results for this | | METABOLITE SCREEN, | e | 3:25 PM | cirrhosis of liver | procedure [...] 5 | | | | | | ng/[id number]-[id number]-Obapgosm 50 | | | | | | [...] | | | | | determined by [facility] | | | | | | Laboratories. See | | | | | | Compliance Statement B: | | | | | | [employer]/CSPerformed | | | | | | by [email or web address],[address] | | | | | | [facility] | | | | | | [address] | | | | | | [phone].[employer]. | | | | | | [facility] MD, | | | | | | Lab. Director | | | | + + + + + + | COTININE, | <5 | ng/mL | [facility] | | | URINE | | | [...] [facility] | [address] | [address], [place] | | | [facility] | | [address] | | + + + + + documented in this encounter Visit Diagnoses + + | Diagnosis | + + | Alcoholic cirrhosis of liver with ascites (HCC) Alcoholic cirrhosis of liver | + + documented in this encounter"
--- OUTSIDE RECORDS SUMMARY | ~2020-07-29 | XMS | Encounter Summary ---
Demographics + + + | Address | [address] | | | [place] [address] | + + + | Home Phone [...] [place] | | | | | [address] | | + + + + + Care Team Providers + +------+ + | Care Promotions Assistant Name | Role | Phone | + +------+ + | Sharon David MD | PCP | | + +------+ + Encounter Details +--------+--------+ + + + | Date | Type | Department | Care Team | Description | +--------+--------+ + + + | 09/25/ | Travel | | | | | [...] | 08/08/ | Telephone-S | Nephrology | Anéglica Chao, | | | 2019 | [place] | | [address] | | | | | | [address] | | | | | | [place], [place] | | | | | | [address] | | | | | | [phone] | | | | | | | | +--------+ + + + + | 09/27/ | Telephone-S | Liver Transplant | Vimal Crowe MD | | | 2019 | [place] | | [address] | | | | | | [address], | | | | | | [place] [address] | | | | | | [phone] | | | | | | | [...] [place] | | | | | | [address] | | | | | | [phone] | | | | | | | | +--------+ + + + + documented as of this encounter Visit Diagnoses Not on filedocumented in this encounter"
--- OUTSIDE RECORDS SUMMARY | ~2020-07-29 | XMS | Encounter Summary ---
Demographics + + + | Address | [address] | | | [place] [address] | + + + | Home Phone [...] [place] | | | | | [address] | | + + + + + Care Team Providers + +------+ + | Care Marketing Director Name | Role | Phone | + +------+ + | Sharon David MD | PCP | | + +------+ + Encounter Details +--------+ + + + + | Date | Type | Department | Care Team | Description | +--------+ + + + + | 05/25/ | Document-Sc | Clinical | Vimal Crowe MD | | | 2020 | anned | Transplant Services | [address] | | | | | [address] | [address] [place], | | | | | [place], | [place] [address] | | | | | [place] [address] | [phone] | | | | | [phone] | | | +--------+ + + + [...] | | 2020 | [place] | | [address] | | | | | | [address] | | | | | | [place], [place] | | | | | | [address] | | | | | | [phone] | | | | | | | | +--------+ + + + + | 09/27/ | Telephone-S | Liver Transplant | Vimal Crowe MD | | | 2019 | [place] | | [address] | | | | | | [address], | | | | | | [place] [address] | | | | | | [phone] | | | | | | | | +--------+ + + + + | 10/03/ | Appointment | Cardiology | | | | 2019 | | | | | +--------+ + + + + | 10/03/ | Office | Cardiology | Cyril Samuel | | | 2019 | Visit | | MD Patricia [address] [facility] | | | | | | [address] | | | | | | [place], [place] | | | | | | [address] | | | | | | [phone] | | | | | | | | +--------+ + + + + documented as of this encounter Visit Diagnoses Not on filedocumented in this encounter"
--- OUTSIDE RECORDS SUMMARY | ~2020-07-29 | XMS | Encounter Summary ---
Demographics + + + | Address | [address] | | | [place] [address] | + + + | Home Phone [...] [place] | | | | | [address] | | + + + + + Care Team Providers + +------+ + | Care Lease Purchase Driver Name | Role | Phone | + +------+ + | Sharon David MD | PCP | | + +------+ + Encounter Details +--------+ + + + + | Date | Type | Department | Care Team | Description | +--------+ + + + + | 06/26/ | Pharmacy | [facility] | | | | 2019 | Visit | [address] | | | | | | [facility] [address] | | | | | | [place] [address] | | | | | | [phone] | | | +--------+ + + + [...] [place] | | | | | | [address] | | | | | | [phone] | | | | | | | | +--------+ + + + + | 09/27/ | Telephone-S | Liver Transplant | Vimal Crowe MD | | | 2019 | c[place]uled | | [address] | | | | | | [address] | | | | | | [place] [address] | | | | | | [phone] | | | | | | | [...] Rd | | | | | | [place], [place] | | | | | | [address] | | | | | | [phone] | | | | | | | | +--------+ + + + + documented as of this encounter Visit Diagnoses Not on filedocumented in this encounter"
--- OUTSIDE RECORDS SUMMARY | ~2020-07-29 | XMS | Encounter Summary ---
Demographics + + + | Address | [address] | | | [place] [address] | + + + | Home Phone [...] [place] | | | | | [id number] | | + + + + + Care Team Providers + +------+ + | Care Rubber Heel And Sole Press Tender Name | Role | Phone | [...] | | | | | ascites | [place], [place] | for Health | | | | | (HCC) | [address] | and Healing, | | | | | Preoperative | Phone: | Building 1, | | | | | examination | [phone] | 7th Floor | | | | | Internal | Fax: | [place], [place] | | | | | organ | [phone] | [address] | | | | | deficiencies | | Phone: | | | | | Procedures | | [phone] | | | | | CONSULT TO | | Fax: | | | | | CARDIOLOGY | | [phone] | | | | | [place] EST | | | | | | | PATIENT | | | | | | | LEVEL V | | | +--------+--------+ + + + + Encounter Details +--------+---------+ + + + | Date | Type | Department | Care Team | Description | +--------+---------+ + + + | 07/06/ | Office | Cardiology Cardiac | Cyril Samuel | Abnormal | | 2019 | Visit | Transplant at [facility] | MD Patricia [address] | echocardiogram | | | | [address] | [address] | (Primary Dx) | | | | [facility] | [place], [place] | | | | | and Healing, | [address] | | | | | [place] [address] [facility] | [phone] | | | | | Floor [place], [place] | | | | | | [address] | | | | | | [phone] | | | +--------+---------+ + + + [...] + + + | Blood Pressure | 105/59 | 07/06/2019 2:19 PM | | | | | PDT | | + + + + + | Pulse | 57 | 07/06/2019 2:19 PM | | | | | PDT | | + + + + + | Temperature | - | - | | + + + + + | Respiratory Rate | 14 | 07/06/2019 2:19 PM | | | | | PDT | | + + + + + | Oxygen Saturation | 98% | 07/06/2019 2:19 PM | | | | | PDT | | + + + + + | Inhaled Oxygen | - | - | | | Concentration | | | | + + + + + | Weight | 88.1 kg (194 lb 3.2 | 07/06/2019 2:19 PM | | | | oz) | PDT | | + + + + + | Height | 180.3 cm (5' 11") | 07/06/2019 2:19 PM | | | | | PDT | | + + + + + | Body Mass Index | 27.09 | 07/06/2019 2:19 PM | | | | | PDT [...] documented as of this encounter Progress Notes Cyril Samuel MD - 07/06/2019 3:00 PM PDT CARDIOLOGY CONSULT Steffen Duran is a 54 y.o. male who is referred by Sharon David for cardia c pre-liver txp evaluation. Chief Complaint Patient presents with New patient consultation 54 yo male w/ hx of advanced liver cirrhosis due to ETOH toxicity and secondary iron overlo ad in the setting of transfusion dependent spur cell anemia presenting to advanced heart [facility] clinic for pre-operative risk stratification prior to potential liver transplantation. Patient underwent comprehensive cardiac evaluation earlier this year through the general md rdiology clinic (Dr. Goncalves). Routine echo from 03/08 personally reviewed by me indicated n ormal biventricular systolic function, only mild diastolic dysfunction, and no hemodynamical ly significant valvular disease. No further evidence for elevated PA pressures (RSVP 32 mmHg ) or significant TR as evidenced previously on outside echo in 2018. Stress echo without evidence for inducible ischemia, but testing complicated by SVT necessi tating inpatient admission and initiation of metoprolol xl. Patient was only able to perform up to 4 METs. No smoking or CAD family hx. Cardiac MRI more recently with normal systolic and diastolic parameters. However, with evid ence for myocardial iron overload (T2* decay 7.7-12.3 ms) consistent with increased per-oper ative risks. Patient is currently not taking chelator therapies. He denies any active cardiac symptoms a part from diuretic controlled anasarca. Liver transplant listing is currently hinging on car diac clearance. Past Medical History: Diagnosis Date Cirrhosis (HCC) [...] (Not Specified) Current Outpatient Medications Medication Sig deferiprone 500 mg oral tablet Take 4 tablets (2,000mg) by mouth three times daily. furosemide 20 mg oral tablet Take 2 tablets by mouth two times daily. lactulose 10 gram/15 mL oral solution Take 15 mL by mouth two times daily. metoprolol tartrate 25 mg oral tablet Take 0.5 tablets by mouth every six hours. Indica tions: Paroxysmal Supraventricular Tachycardia spironolactone 100 mg oral tablet Take 1 [...] ja undice Psych: non focal Vitals: BP 105/59 (Patient Position: Sitting) | Pulse 57 | Resp 14 | Ht 1.803 m (5' 11" ) | Wt 88.1 kg (194 lb 3.2 oz) | SpO2 98% | BMI 27.09 kg/m | BSA 2.1 m Labs: Lab Results Component Value Date WBC 6.57 04/24/2019 HB 8.5 04/24/2019 HCT 23.5 04/24/2019 PLT 49 04/24/2019 MCV 100.0 04/24/2019 RDW 54.6 04/24/2019 NA 131 04/24/2019 K 4.6 04/24/2019 CL 99 04/24/2019 BICARB 25 04/24/2019 BUN 43 04/24/2019 CR 1.20 04/24/2019 GLU 115 04/24/2019 CA 8.6 04/24/2019 TSH 1.33 04/21/2019 Cardiac MRI 05/08 1. Normal left ventricular [...] spleen suggestive of sequelae of portal hypertension. ECG today w/ SB, PACs, LAE, and RBBB Impression: 54 yo male w/ hx of advanced liver cirrhosis due to ETOH toxicity and secondary iron overlo ad in the setting of transfusion dependent spur cell anemia presenting to advanced [facility] for pre-operative risk stratification prior to potential liver transplantation. # Cardiac pre-op clearance - apart from very mild diastolic dysfunction and aortic stenosis no structural abnormalitie s on recent surface echo to preclude him from transplant listing - degree of iron depositioning on recent cMR (T2 decay < 15 ms) does serve as additional ri sk marker for per-operative cardiac MAZE (Transplant Direct. 2018 Yung; 4(7): e312), but shou ld not be prohibitive in isolation. Again, no marked diastolic dysfunction on recent MR/echo . Recent NTproBNP normal (286) despite underlying hepatorenal syndrome. - No evidence for portopulmonary hypertension on recent echo, so agree with holding off ded icated right heart catheter considering his profound auto-anticoagulation - no need for further cardiac ischemia assessment based on recent stress echo results - diuretic management per liver service # Dobutamine related SVT - decrease toprol xl from 50 to 25 mg po daily given underlying sinus bradycardia and monit or for SVT recurrence. # Dispo - f/u with me in clinic on 08/04 for routine follow up documented in thi s encounter Plan of Treatment +--------+ + + + + | Date | Type | Specialty | Care Team | Description | +--------+ + + + + | 08/08/ | Telephone-S | Nephrology | Angélica Chao, | | | 2019 | [place] | | MD [address] | | | | | | [address] | | | | | | [place], [place] | | | | | | [address] | | | | | | [phone] | | | | | | | | +--------+ + + + + | 09/27/ | Telephone-S | Liver Transplant | Vimal Crowe MD | | | 2019 | [place] | | [address] | | | | | | [address], | | | | | | [place] [address] | | | | | | [phone] | | | | | | | [...] Rd | | | | | | [place], [place] | | | | | | [address] | | | | | | [phone] | | | | | | | | +--------+ + + + + documented as of this encounter Procedures + +--------+ + + + | Procedure Name | Priori | Date/Time | Associated Diagnosis | Comments | | | ty | | | | + +--------+ + + + | 12 LEAD ECG | Routin | 07/06/2019 | Abnormal | Results for this | | | e | 2:30 PM | echocardiogram | procedure are in the | | | | PDT | | results section. | + +--------+ + + + documented in this encounter Results 12 LEAD ECG (07/06/2019 2:30 PM PDT) + + + + + + | Component | Value | Ref Range | Performed | Pathologist | | | | | At | Signature | + + + + + + | VENTRICULAR | 56 | bpm | [facility] | | | RATE | | | OF | | | | | | CARDIOLOGY | | + + + + + + | ATRIAL RATE | 56 | ms | [facility] | | | | | | OF | | | | | | CARDIOLOGY | | + + + + + + | P-R | 185 | ms | [facility] [...] + + + + | QRS | 142 | ms | [facility] | | | DURATION | | | OF | | | | | | CARDIOLOGY | | + + + + + + | QT | 477 | ms | [facility] | | | | | | OF | | | | | | CARDIOLOGY | | + + + + + + | QTC-BELLA | 461 | ms | [facility] | | | | | | OF | | | | | | CARDIOLOGY | | + + + + + + | R AXIS | 38 | deg | [facility] | | | | | | OF | | | | | | CARDIOLOGY | | + + + + + + | T AXIS | 27 | deg | [facility] | | [...] DEPT | | | IMPRESSION | by: EFRAÍN HOFFMAN | | OF | | | | 07-06-2019 15:39:26 | | CARDIOLOGY | | + + [...] | [facility] | [address] | [place], [place] | | | CARDIOLOGY | [address] | [address] | | + + + + + documented in this encounter Visit Diagnoses + + | Diagnosis | + + | Abnormal echocardiogram - Primary Nonspecific (abnormal) findings on radiological and | | other examination of other intrathoracic organs | + + documented in this encounter
--- OUTSIDE RECORDS SUMMARY | ~2020-07-29 | XMS | Encounter Summary ---
Demographics + + + | Address | [address] | | | [place] [address] | + + + | Home Phone [...] [place] | | | | | [address] | | + + + + + Care Team Providers + +------+ + | Care Outbound Sales Specialist Name | Role | Phone | + +------+ + | Sharon David MD | PCP | | + +------+ + Encounter Details +--------+ + + + + | Date | Type | Department | Care Team | Description | +--------+ + + + + | 01/16/ | Pharmacy | [facility] | | | | 2020 | Visit | [address] | [address] | | | | | | [place] [address] | | | | | | [phone] | | | +--------+ + + + [...] Rd | | | | | | [place], [place] | | | | | | [address] | | | | | | [phone] | | | | | | | | +--------+ + + + + | 09/27/ | Telephone-S | Liver Transplant | Vimal Crowe MD | | | 2019 | cheduled | | [address] | | | | | | [address], | | | | | | [place] [address] | | | | | | [phone] | | | | | | | [...] | | | | | | [place] | | | | | | [address] | | | | | | [phone] | | | | | | | | +--------+ + + + + documented as of this encounter Visit Diagnoses Not on filedocumented in this encounter"
--- OUTSIDE RECORDS SUMMARY | ~2020-07-29 | XMS | Encounter Summary ---
Demographics + + + | Address | [address] | | | [place] [address] | + + + | Home Phone [...] [place] | | | | | [address] | | + + + + + Care Team Providers + +------+ + | Care Linseed Oil Order Filler Name | Role | Phone | + +------+ + | Sharon David MD | PCP | | + +------+ + Reason for Visit + +--------+ + | Reason | Onset | Comments | | | Date | | + +--------+ + | MELD Score | 08/13/ | | | | 2018 | | + +--------+ + Encounter Details +--------+ + + + + | Date | Type | Department | Care Team | Description | +--------+ + + + + | 08/13/ | Abstract | Clinical | Vimal Crowe MD | MELD Score | | 2019 | | Transplant Services | [address] | | | | | [address] | [address] [place], | | | | | [place], | [place] [address] | | | | | [place] [address] | [phone] | | | | | [phone] | | | +--------+ + + + [...] as of this encounter Amy Evans - 08/13/2019 8:12 AM PDTEntry verified in UNOS Waitlist. documented [...] Rd | | | | | | [place], [place] | | | | | | [address] | | | | | | [phone] | | | | | | | | +--------+ + + + + | 09/27/ | Telephone-S | Liver Transplant | Vimal Crowe MD | | | 2019 | [place] | | [address] | | | | | | [address], | | | | | | [place] [address] | | | | | | [phone] | | | | | | | [...] Rd | | | | | | [place], [place] | | | | | | [address] | | | | | | [phone] | | | | | | | | +--------+ + + + + documented as of this encounter Procedures + +--------+ + + + | Procedure Name | Priori | Date/Time | Associated Diagnosis | Comments | | | ty | | | | + +--------+ + + + | LAB OTHER | Routin | 08/13/2019 | | Results for this | | | e | | | procedure are in the | | | | | | results section. | + +--------+ + + + documented in this encounter Results LAB OTHER (08/13/2019) + + + + + + | Component | Value | Ref Range | Performed | Pathologist | | | | | At | Signature | + + + + + + | MELD | 32Comment: Calculated | | CALCULATED | | | | Manually Using [employer] MELD | | MANUALLY | | | | Calculator | | | | + + + + + + + + | Specimen | + + | | + + + + + + + | Performing | Address | City/State/Zipcode | Phone Number | | Organization | | | | + + + + + | CALCULATED | [address] | [place], [place] | | | [place] | | | | + + + + + documented in this encounter Visit Diagnoses Not on filedocumented in this encounter"
--- OUTSIDE RECORDS SUMMARY | ~2020-07-29 | XMS | Encounter Summary ---
Demographics + + + | Address | [address] | | | [place] [address] | + + + | Home Phone [...] [place] | | | | | [address] | | + + + + + Care Team Providers + +------+ + | Care It Associate Name | Role | Phone | + +------+ + | Sharno David MD | PCP | | + +------+ + Encounter Details +--------+ + + + + | Date | Type | Department | Care Team | Description | +--------+ + + + + | 05/09/ | Results | [facility] | Angélica Chao, | | | 2019 | Only | E The | [address] | | | | | [place] | [address] | | | | | [address] | [facility] [place] | | | | | | [address] | | | | | | [phone] | | | | | | | [...] [address] | | | | | | [place], [place] | | | | | | [address] | | | | | | [phone] | | | | | | | | +--------+ + + + + | 09/27/ | Telephone-S | Liver Transplant | Vimal Crowe MD | | | 2019 | [place] | | [address] | | | | | | [address], | | | | | | [place] [address] | | | | | | [phone] | | | | | | | [...] Rd | | | | | | [place], [place] | | | | | | [address] | | | | | | [phone] | | | | | | | [...] encounter Results RENAL FUNCTION SET (NA,K,CL,CO2,BUN,CREAT,GLUC,CA,PHOS,ALB ) (05/09/2020 8:15 AM PDT) + + + [...] | (LAB) | Reference Range: | | [place] | | | | GFR = Less [...] Testing Performed at: [facility] [place] [facility] CLIA: [id number] - [address] | [facility] | | [place] [address] | - [place] | + + + + + + + + | Performing | Address | City/State/Zipcode | Phone Number | | Organization | | | | + + + + + | [facility] - | [address] | [place] | [phone] | | [place] | | | | + + + + + documented in this encounter Visit Diagnoses Not on filedocumented in this encounter"
--- OUTSIDE RECORDS SUMMARY | ~2020-07-29 | XMS | Encounter Summary ---
Demographics + + + | Address | [address] | | | [place] [address] | + + + | Home Phone [...] [place] | | | | | [address] | | + + + + + Care Team Providers + +------+ + | Care Welding Process Engineer Name | Role | Phone | + +------+ + | Sharon David MD | PCP | | + +------+ + Encounter Details +--------+ + + + + | Date | Type | Department | Care Team | Description | +--------+ + + + + | 07/02/ | Pharmacy | Outpatient Retail | | | | 2019 | Visit | [facility] | | | | | | [address] | | | | | | [place], [place] | | | | | | [address] | | | | | | [phone] | | | +--------+ + + + [...] Rd | | | | | | [place], [place] | | | | | | [address] | | | | | | [phone] | | | | | | | | +--------+ + + + + | 09/27/ | Telephone-S | Liver Transplant | Vimal Crowe MD | | | 2019 | cheduled | | [address] | | | | | | [place], | | | | | | [place] [address] | | | | | | [phone] | | | | | | | [...] Rd | | | | | | [place], [place] | | | | | | [address] | | | | | | [phone] | | | | | | | | +--------+ + + + + documented as of this encounter Visit Diagnoses Not on filedocumented in this encounter"
--- OUTSIDE RECORDS SUMMARY | ~2020-07-29 | XMS | Encounter Summary ---
Demographics + + + | Address | [address] | | | [place] [address] | + + + | Home Phone [...] [place] | | | | | [address] | | + + + + + Care Team Providers + +------+ + | Care Livestock Feeder Name | Role | Phone | + +------+ + | Sharon David MD | PCP | | + +------+ + Reason for Visit + +--------+ + | Reason | Onset | Comments | | | Date | | + +--------+ + | Liver Transplant | 04/28/ | prograf dose | | Follow Up | 2019 | | + +--------+ + Encounter Details +--------+ + + + + | Date | Type | Department | Care Team | Description | +--------+ + + + + | 04/28/ | Documentati | Clinical | Vimal Crowe MD | Liver Transplant | | 2020 | on | Transplant Services | [address] | Follow Up (prograf | | | | [address] | [address] [place], | dose ) | | | | [place], | [place] [address] | | | | | [place] [address] | [phone] | | | | | [phone] | | | +--------+ + + + [...] this encounter Miscellaneous Notes Addendum Note - Vaishnavi Simon MA - 05/12/2020 10:28 AM PDT Addended by: VAISHNAVI MONTAGUE on: 05/12/2020 10:28 AM Modules accepted: Orders elephone Von mendoza - Judie Mota RN - 04/28/2020 3:45 PM PDTFormatting of this note might be dif ferent from the original. MD Judie Chahal RN Lets go down on FK to 11/22 and recheck in a week. Do we need to think kidney safety net for him? Called spoke with Odnell, he will make the needed changes. documented in this encounter Plan of Treatment +--------+ + + + + | Date | Type | Specialty | Care Team | Description | +--------+ + + + + | 08/08/ | Telephone-S | Nephrology | Angélica Chao, | | 2019 | [place] | | [address] | | | | | | [address] | | | | | | [place], [place] | | | | | | [address] | | | | | | [phone] | | | | | | | | +--------+ + + + + | 09/27/ | Telephone-S | Liver Transplant | Vimal Crowe MD | | | 2019 | cheduled | | [address] | | | | | | [facility] [place], | | | | | | [place] [address] | | | | | | [phone] | | | | | | | | +--------+ + + + + | 10/03/ | Appointment | Cardiology | | | | 2019 | | | | | +--------+ + + + + | 10/03/ | Office | Cardiology | Cyril Samuel | | | 2019 | Visit | | MD Patricia [address] | | | | | | [address] | | | | | | [place] | | | | | | [address] | | | | | | [phone] | | | | | | | [...] | | | | on CKD ([facility]) | results section. | + +--------+ + + + | RENAL FUNCTION SET | Routin | 05/09/2020 | Acute kidney | Results for this | | (NA,K,CL,CO2,BUN,CRE | e | | injury superimposed | procedure are in the | | AT,GLUC,CA,PHOS,ALB | | | on CKD ([facility]) | results section. | | ) | | | | | + +--------+ + + + documented in this encounter Results RENAL FUNCTION SET (NA,K,CL,CO2,BUN,CREAT,GLUC,CA,PHOS,ALB ) (05/09/2020) + [address] | [place] | [phone] | | [place] | | | | [...] | | | [place] | | | [place] | | + [...] [address] | [place] | [phone] | | [place] | | | | + + + + + documented in this encounter Visit Diagnoses + + | Diagnosis | + + | Acute kidney injury superimposed on CKD (HCC) | + + documented in this encounter"
--- OUTSIDE RECORDS SUMMARY | ~2020-07-29 | XMS | Encounter Summary ---
Demographics + + + | Address | [address] | | | [place] [address] | + + + | Home Phone [...] [place] | | | | | [address] | | + + + + + Care Team Providers + +------+ + | Care Laser Operator Name | Role | Phone | + +------+ + | Sharon David MD | PCP | | + +------+ + Reason for Visit + +--------+ + | Reason | Onset | Comments | | | Date | | + +--------+ + | MELD Score | 08/04/ | | | | 2019 | | + +--------+ + Encounter Details +--------+ + + + + | Date | Type | Department | Care Team | Description | +--------+ + + + + | 08/04/ | Abstract | Clinical | Vimal Crowe MD | MELD Score | | 2019 | | Transplant Services | [address] | | | | | [address] | [address] [place], | | | | | [place], | [place] [address] | | | | | [place] [address] | [phone] | | | | | [phone] | | | +--------+ + + + [...] as of this encounter Amy Evans - 08/04/2019 8:07 AM PDTEntry verified in UNOS Waitlist. documented [...] | | | | | | [place], [place] | | | | | | [address] | | | | | | [phone] | | | | | | | | +--------+ + + + + | 09/27/ | Telephone-S | Liver Transplant | Vimal Crowe MD | | | 2019 | [place] | | [address] | | | | | | [address], | | | | | | [place] [address] | | | | | | [phone] | | | | | | | [...] Rd | | | | | | [place], [place] | | | | | | [address] | | | | | | [phone] | | | | | | | | +--------+ + + + + documented as of this encounter Procedures + +--------+ + + + | Procedure Name | Priori | Date/Time | Associated Diagnosis | Comments | | | ty | | | | + +--------+ + + + | LAB OTHER | Routin | 08/04/2019 | | Results for this | | | e | | | procedure are in the | | | | | | results section. | + +--------+ + + + documented in this encounter Results LAB OTHER (08/04/2019) + + + + + + | Component | Value | Ref Range | Performed | Pathologist | | | | | At | Signature | + + + + + + | MELD | 33Comment: Calculated | | CALCULATED | | | | Manually Using [employer] MELD | | MANUALLY | | | | Calculator | | | | + + + + + + + + | Specimen | + + | | + + + + + + + | Performing | Address | City/State/Zipcode | Phone Number | | Organization | | | | + + + + + | CALCULATED | [address] | [place], [place] | | | MANUALLY | | | | + + + + + documented in this encounter Visit Diagnoses Not on filedocumented in this encounter"
--- OUTSIDE RECORDS SUMMARY | ~2020-07-29 | XMS | Encounter Summary ---
Demographics + + + | Address | [address] | | | [place] [address] | + + + | Home Phone [...] [place] | | | | | [address] | | + + + + + Care Team Providers + +------+ + | Care Sheet Writer Name | Role | Phone | + +------+ + | Sharon David MD | PCP | | + +------+ + Encounter Details +--------+ + + + + | Date | Type | Department | Care Team | Description | +--------+ + + + + | 01/26/ | Pharmacy | [facility] | | | | 2020 | Visit | [address] | | | | | | [address] | | | | | | [place] [address] | | | | | | [phone] | | | +--------+ + + + [...] Rd | | | | | | [place], [place] | | | | | | [address] | | | | | | [phone] | | | | | | | | +--------+ + + + + | 09/27/ | Telephone-S | Liver Transplant | Vimal Crowe MD | | | 2019 | cheduled | | [address] | | | | | | [address], | | | | | | [place] [address] | | | | | | [phone] | | | | | | | [...] Rd | | | | | | [place] | | | | | | [address] | | | | | | [phone] | | | | | | | | +--------+ + + + + documented as of this encounter Visit Diagnoses Not on filedocumented in this encounter"
--- OUTSIDE RECORDS SUMMARY | ~2020-07-29 | XMS | Encounter Summary ---
Demographics + + + | Address | [address] | | | [place] [address] | + + + | Home Phone [...] [place] | | | | | [address] | | + + + + + Care Team Providers + +------+ + | Care Dance Master Name | Role | Phone | + +------+ + | Sharon David MD | PCP | | + +------+ + Encounter Details +--------+ + + + + | Date | Type | Department | Care Team | Description | +--------+ + + + + | 07/15/ | MyChart | [facility] | Tyson Bellamy, | RE: Steffen Duran | | 2019 | Encounter | [facility] | MD [address] | | | | | [place] [place], | | | | | [address] [facility] | [place] [address] | | | | | [facility], | [phone] | | | | | [facility] | | | | | | [place], [place] | | | | | | [address] | | | | | | [phone] | | | +--------+ + + + [...] Notes Telephone Encounter - Claudia Cotter - 07/20/2019 12:53 PM PDTTeam Coordinator Docum entation: 07/15 Results received from [facility] and uploaded to this encounter. elephone Encounter - Daniel Cotter - 07/15/2019 1:37 PM PDTTeam Coordinator Documentation: TC has already confirmed with [facility] that standing lab orders are in place (information in 07/07 encounter). d ocumented in this encounter Plan of [...] Rd | | | | | | [place], [place] | | | | | | [address] | | | | | | [phone] | | | | | | | | +--------+ + + + + | 09/27/ | Telephone-S | Liver Transplant | Vimal Crowe MD | | | 2019 | [place] | | [address] | | | | | | [address], | | | | | | [place] [address] | | | | | | [phone] | | | | | | | [...] Rd | | | | | | [place], [place] | | | | | | [address] | | | | | | [phone] | | | | | | | | +--------+ + + + + documented as of this encounter Visit Diagnoses + + | Diagnosis | + + | Iron overload - Primary Other disorders of iron metabolism | + + documented in this encounter"
--- OUTSIDE RECORDS SUMMARY | ~2020-07-29 | XMS | Encounter Summary ---
Demographics + + + | Address | [address] | | | [place] [address] | + + + | Home Phone [...] [place] | | | | | [address] | | + + + + + Care Team Providers + +------+ + | Care Repack Room Worker Name | Role | Phone | + +------+ + | Sharon David MD | PCP | | + +------+ + Encounter Details +--------+--------+ + + + | Date | Type | Department | Care Team | Description | +--------+--------+ + + + | 05/20/ | Travel | | | | | [...] Rd | | | | | | [place], [place] | | | | | | [address] | | | | | | [phone] | | | | | | | | +--------+ + + + + | 09/27/ | Telephone-S | Liver Transplant | Vimal Crowe MD | | | 2019 | [place] | | [address] | | | | | | [address], | | | | | | [place] [address] | | | | | | [phone] | | | | | | | [...] Rd | | | | | | [place] | | | | | | [address] | | | | | | [phone] | | | | | | | | +--------+ + + + + documented as of this encounter Visit Diagnoses Not on filedocumented in this encounter"
--- OUTSIDE RECORDS SUMMARY | ~2020-07-29 | XMS | Encounter Summary ---
Demographics + + + | Address | [address] | | | [place] [address] | + + + | Home Phone [...] [place] | | | | | [address] | | + + + + + Care Team Providers + +------+ + | Care Product Control And Logistics Analyst Name | Role | Phone | + +------+ + | Ignacio Caldwell MD | PCP | | + +------+ + Encounter Details +--------+ + + + + | Date | Type | Department | Care Team | Description | +--------+ + + + + | 03/27/ | Procedure - | | Documentation, | [...] as of this encounter Procedure Notes Interface, Information Services Manager In - 10/09/2006 3:09 AM PST [place] [address] [address] [facility] OPERATION RECORD ADDENDUM Med Rec No.: [id number] Date: 03/27/1999 Name: Steffen Duran ATTENDING PHYSICIAN:Rod Velasquez M.D. ELECTRICAL INSTRUMENT MAKER(S): Kianna Gallegos M.D. PROCEDURE: 1. Reduction and fixation with external fixator open tibial plateau, tibial shaft fracture. 2. Debridement. 3. Partial closure of wound. Pursuant to federal Medicare billing regulations, I hereby certify that I was present, at a minimum, during all the tamez portions of the above procedure from prep through wound closure. Rod Velasquez M.D. [id number] #[id number] [address] [place] [id number] signed by Interface, Information Services Manager In at 10/09/2006 3:09 AM PSTdocumented in [...] Rd | | | | | | [place], [place] | | | | | | [address] | | | | | | [phone] | | | | | | | | +--------+ + + + + | 09/27/ | Telephone-S | Liver Transplant | Vimal Crowe MD | | | 2019 | [place] | | [address] | | | | | | [address], | | | | | | [place] [address] | | | | | | [phone] | | | | | | | | +--------+ + + + + | 10/03/ | Appointment | Cardiology | | | | 2019 | | | | | +--------+ + + + + | 10/03/ | Office | Cardiology | Cyril Samuel | | | 2019 | Visit | | MD Patricia [address] [facility] | | | | | | [address] | | | | | | [place], [place] | | | | | | [address] | | | | | | [phone] | | | | | | | | +--------+ + + + + documented as of this encounter Procedures + +--------+ + + + | Procedure Name | Priori | Date/Time | Associated Diagnosis | Comments | | | ty | | | | + +--------+ + + + | TEACHING PHYSICIAN | | 03/27/1999 | | | + +--------+ + + + documented in this encounter Visit Diagnoses Not on filedocumented in this encounter"
--- OUTSIDE RECORDS SUMMARY | ~2020-07-29 | XMS | Encounter Summary ---
Demographics + + + | Address | [address] | | | [place] [address] | + + + | Home Phone [...] [place] | | | | | [address] | | + + + + + Care Team Providers + +------+ + | Care Personnel Recruiter Name | Role | Phone | + +------+ + | Sharon David MD | PCP | | + +------+ + Encounter Details +--------+ + + + + | Date | Type | Department | Care Team | Description | +--------+ + + + + | 05/17/ | Pharmacy | [facility] | | | | 2020 | Visit | [address] | | | | | | [address] | | | | | | [place] [address] | | | | | | [phone] | | | +--------+ + + + [...] Rd | | | | | | [place], [place] | | | | | | [address] | | | | | | [phone] | | | | | | | | +--------+ + + + + | 09/27/ | Telephone-S | Liver Transplant | Vimal Crowe MD | | | 2019 | cheduled | | [address] | | | | | | [address] [place] [address], | | | | | | [place] [address] | | | | | | [phone] | | | | | | | [...] Rd | | | | | | [place] | | | | | | [address] | | | | | | [phone] | | | | | | | | +--------+ + + + + documented as of this encounter Visit Diagnoses Not on filedocumented in this encounter"
--- OUTSIDE RECORDS SUMMARY | ~2020-07-29 | XMS | Encounter Summary ---
Demographics + + + | Address | [address] | | | [place] [address] | + + + | Home Phone [...] [place] | | | | | [address] | | + + + + + Care Team Providers + +------+ + | Care Credit Union Manager Name | Role | Phone | [...] | | | | | Hyperkalemia | [address] | | | | | | [address] | | | | | | | [place] | | | | | | | [place], [place] | | | | | | | [address] | | | | | | | Phone: | | | | | | | [phone] | | | | | | | Fax: | | | | | | | [phone] | | +--------+--------+ + + + + [...] | | | | [facility] | [place], [place] | | | | | [facility], [address] [place] [address] | [address] | | | | | [place], [place] | [phone] | | | | | [address] | | | | | | [phone] | | | +--------+ + + + [...] - 06/09/2020 11:28 AM PDTReceived notification t Backspaces message was unread. Called pt to follow [...] everyone in the loop. Angélica Chao MD [facility] Professor Division of Nephrology and Hypertension Office tel: [phone] A M PDTdocumented in this encounter Plan [...] [address] | | | | | | [place], [place] | | | | | | [address] | | | | | | [phone] | | | | | | | | +--------+ + + + + | 09/27/ | Telephone-S | Liver Transplant | Vimal Crowe MD | | 2019 | cheduled | | [address] | | | | | | [facility] [place], | | | | | | [place] [address] | | | | | | [phone] | | | | | | | | +--------+ + + + + | 10/03/ | Appointment | Cardiology | | | | 2019 | | | | | +--------+ + + + + | 10/03/ | Office | Cardiology | Cyril Samuel | | | 2019 | Visit | | MD Patricia [address] [facility] | | | | | | [address] | | | | | | [place], [place] | | | | | | [address] | | | | | | [phone] | | | | | | | | +--------+ + + + + documented as of this encounter Visit Diagnoses + + | Diagnosis | + + | Hyperkalemia - Primary Hyperpotassemia | + + documented in this encounter"
--- OUTSIDE RECORDS SUMMARY | ~2020-07-29 | XMS | Encounter Summary ---
Demographics + + + | Address | [address] | | | [place] [address] | + + + | Home Phone [...] [place] | | | | | [address] | | + + + + + Care Team Providers + +------+ + | Care Light Oil Operator Name | Role | Phone | + +------+ + | Sharon David MD | PCP | | + +------+ + Encounter Details +--------+ + + + + | Date | Type | Department | Care Team | Description | +--------+ + + + + | 06/15/ | Pharmacy | [facility] | | | | 2020 | Visit | [address] | | | | | | [address] | | | | | | [place] [address] | | | | | | [phone] | | | +--------+ + + + [...] | | | | | | [place], [place] | | | | | | [address] | | | | | | [phone] | | | | | | | | +--------+ + + + + | 09/27/ | Telephone-S | Liver Transplant | Vimal Crowe MD | | | 2019 | cheduled | | [address] | | | | | | [address], | | | | | | [place] [address] | | | | | | [phone] | | | | | | | [...] Rd | | | | | | [place] | | | | | | [address] | | | | | | [phone] | | | | | | | | +--------+ + + + + documented as of this encounter Visit Diagnoses Not on filedocumented in this encounter"
--- OUTSIDE RECORDS SUMMARY | ~2020-07-29 | XMS | Encounter Summary ---
Demographics + + + | Address | [address] | | | [place] [address] | + + + | Home Phone [...] [place] | | | | | [address] | | + + + + + Care Team Providers + +------+ + | Care Dedicated Truck Driver Name | Role | Phone [...] [address] | | | | | [place] [address] [address] | [address] | | | | | [address] | [place], [place] | | | | | [place] [address] | [address] | | | | | [phone] | [phone] | | | | | | | [...] Rd | | | | | | [place], [place] | | | | | | [address] | | | | | | [phone] | | | | | | | | +--------+ + + + + | 09/27/ | Telephone-S | Liver Transplant | Vimal Crowe MD | | | 2019 | cheduled | | [address] | | | | | | [facility] [address] [place], | | | | | | [place] [address] | | | | | | [phone] | | | | | | | [...] Rd | | | | | | [place], [place] | | | | | | [address] | | | | | | [phone] | | | | | | | | +--------+ + + + + documented as of this encounter Visit Diagnoses Not on filedocumented in this encounter"
--- OUTSIDE RECORDS SUMMARY | ~2020-07-29 | XMS | Encounter Summary ---
Demographics + + + | Address | [address] | | | [place] [address] | + + + | Home Phone [...] [place] | | | | | [address] | | + + + + + Care Team Providers + +------+ + | Care Printed Circuit Board Layout Designer Name | Role | Phone | + +------+ + | Sharon David MD | PCP | | + +------+ + Encounter Details +--------+ + + + + | Date | Type | Department | Care Team | Description | +--------+ + + + + | 10/15/ | Pharmacy | Outpatient Retail | | | | 2018 | Visit | [facility] | | | | | | [address] | | | | | | [address] [place], [place] | | | | | | [address] | | | | | | [phone] | | | +--------+ + + + [...] Rd | | | | | | [place], [place] | | | | | | [address] | | | | | | [phone] | | | | | | | | +--------+ + + + + | 09/27/ | Telephone-S | Liver Transplant | Vimal Crowe MD | | | 2019 | cheduled | | [address] | | | | | | [facility] [place], | | | | | | [place] [address] | | | | | | [phone] | | | | | | | [...] Rd | | | | | | [place], [place] | | | | | | [address] | | | | | | [phone] | | | | | | | | +--------+ + + + + documented as of this encounter Visit Diagnoses Not on filedocumented in this encounter"
--- OUTSIDE RECORDS SUMMARY | ~2020-07-29 | XMS | Encounter Summary ---
Demographics + + + | Address | [address] | | | [place] [address] | + + + | Home Phone [...] [place] | | | | | [address] | | + + + + + Care Team Providers + +------+ + | Care Packing And Shipping Clerk Name | Role | Phone | + +------+ + | Sharon David MD | PCP | | + +------+ + Reason for Visit + +--------+ + | Reason | Onset | Comments | | | Date | | + +--------+ + | Dialysis care | 09/03/ | | | | 2019 | | + +--------+ + Encounter Details +--------+ + + + + | Date | Type | Department | Care Team | Description | +--------+ + + + + | 09/03/ | Telephone | Nephrology & | Angélica Chao, | Dialysis care | | 2019 | | [facility] at [facility] | MD [address] | | | | | [address] | [address] | | | | | Loop Physician's | [place], [place] | | | | | Pavilion, 3rd floor | [address] | | | | | [place], [place] | [phone] | | | | | [address] | | | | | | [phone] | | | +--------+ + + + [...] Telephone Encounter - Angélica Chao MD - 09/03/2019 10:38 AM PSTLabs from today nereydae d. Creatinine 1.8 from 2. BUN 30's (stable). Mg notably a touch low - defer to liver txp tea m. I called pt to discuss. He is feeling "great." He notes decreasing LE edema and increased uop (measures in urinal). We discussed the following plan: -it appears likely his kidneys are recovering -no dialysis today or Saturday -renal function set at [facility] Saturday morning (ordered) to reassess - fasting is not required -I alerted him to mildly low Mg and let him know I will defer management of that to his [facility] er txp team (he tells me he has an appt with them tomorrow) -we discussed what to watch for (worsening leg swelling, less urination instead of more) an d that he should call if this occurs. He should drink fluids to thirst. He should also call if he has more than 4L a day uop, as it can be difficult to keep up with that volume of uop with po fluids alone. Confirmed that he has our office tel# and discussed how to use that nu mber to reach system integration engineer provider after hours. He expressed understanding of this plan. -If on Saturday his renal function is continuing to improve, will cancel future dialysis and will then need to arrange for expeditious TDC removal. Angélica Chao MD [facility] Division of Nephrology and Hypertension Office tel: [phone] A M PSTdocumented in this encounter Plan of [...] Rd | | | | | | [place], [place] | | | | | | [address] | | | | | | [phone] | | | | | | | | +--------+ + + + + | 09/27/ | Telephone-S | Liver Transplant | Vimal Crowe MD | | | 2019 | cheduled | | [address] | | | | | | [address], | | | | | | [place] [address] | | | | | | [phone] | | | | | | | [...] Rd | | | | | | [place], [place] | | | | | | [address] | | | | | | [phone] | | | | | | | | +--------+ + + + + documented as of this encounter Results RENAL FUNCTION SET (NA,K,CL,CO2,BUN,CREAT,GLUC,CA,PHOS,ALB ) (09/07/2019 8:57 [...] | | | LABORATORY | | | [facility] | | | SERVICES, | | | [...] | + + + + + | [facility] | [address] | [place] [address] | | | ARTIS TAYLOR | [address] | | | + + + + + documented in this encounter Visit Diagnoses + + | Diagnosis | + + | KAR (acute kidney injury) (HCC) - Primary Acute kidney failure, unspecified | + + documented in this encounter
--- OUTSIDE RECORDS SUMMARY | ~2020-07-29 | XMS | Encounter Summary ---
Demographics + + + | Address | [address] | | | [place] [address] | + + + | Home Phone [...] [place] | | | | | [address] | | + + + + + Care Team Providers + +------+ + | Care Coal Gasification Technician Name | Role | Phone | + +------+ + | Sharon David MD | PCP | | + +------+ + Encounter Details +--------+ + + + + | Date | Type | Department | Care Team | Description | +--------+ + + + + | 04/19/ | Abstract | Clinical | Vimal Crowe MD | | | 2019 | | Transplant Services | [address] | | | | | [address] | [address] [place], | | | | | [place], | [place] [address] | | | | | [place] [address] | [phone] | | | | | [phone] | | | +--------+ + + + [...] Rd | | | | | | [place], [place] | | | | | | [address] | | | | | | [phone] | | | | | | | | +--------+ + + + + | 09/27/ | Telephone-S | Liver Transplant | Vimal Crowe MD | | | 2019 | [place] | | [address] | | | | | | [facility] [address] [place], | | | | | | [place] [address] | | | | | | [phone] | | | | | | | | +--------+ + + + + | 10/03/ | Appointment | Cardiology | | | | 2019 | | | | | +--------+ + + + + | 10/03/ | Office | Cardiology | Cyril Samuel | | | 2019 | Visit | Darren Gomez MD [address] | | | | | | [address] | | | | | | [place], [place] | | | | | | [address] | | | | | | [phone] | | | | | | | | +--------+ + + + + documented as of this encounter Procedures + +--------+ + + + | Procedure Name | Priori | Date/Time | Associated Diagnosis | Comments | | | ty | | | | + +--------+ + + + | LIVER TRANSPLANT | Routin | 04/18/2020 | | Results for this | | POST PANEL (EXT | e | 6:45 AM | | procedure are in the | | RESULTS) | | PDT | | results section. | + +--------+ + + + documented in this encounter Results LIVER TRANSPLANT POST PANEL (EXT RESULTS) (04/18/2020 6:45 AM PDT) + + + + + [...] + + + | GLUCOSE, | 242 (A) | 65 - 110 mg/dL | [...] + + + + | CREATININE | 3.18 | mg/dL | [facility] | | | PLASMA | | | LAB - | | | (LAB) | | | [place] | | + + + + + + | CALCIUM, | 9.7 | mg/dL | [facility] | | | PLASMA | | | LAB - | | | (LAB) | | | [place] | | + + + + + [...] + + + | TOTAL | 6.3 | g/dL | [facility] | | | [...] + + + + | HEMATOCRIT | 31.5 | % | [facility] | | | [...] + + + + | TACROLIMUS | 9.3 | ng/mL | [facility] | | | [address] | [place] | [phone] | | [place] | | | | + + + + + documented in this encounter Visit Diagnoses Not on filedocumented in this encounter"
--- OUTSIDE RECORDS SUMMARY | ~2020-07-29 | XMS | Encounter Summary ---
Demographics + + + | Address | [address] | | | [place] [address] | + + + | Home Phone [...] [place] | | | | | [address] | | + + + + + Care Team Providers + +------+ + | Care Food Processor Name | Role | Phone | + +------+ + | Sharon David MD | PCP | | + +------+ + Encounter Details +--------+ + + + + | Date | Type | Department | Care Team | Description | +--------+ + + + + | 05/09/ | Pharmacy | [facility] | | | | 2020 | Visit | [address] | | | | | | [address] | | | | | | [place] [address] | | | | | | [phone] | | | +--------+ + + + [...] Rd | | | | | | [place], [place] | | | | | | [address] | | | | | | [phone] | | | | | | | | +--------+ + + + + | 09/27/ | Telephone-S | Liver Transplant | Vimal Crowe MD | | | 2019 | cheduled | | [address] | | | | | | [address], | | | | | | [place] [address] | | | | | | [phone] | | | | | | | [...] Rd | | | | | | [place] | | | | | | [address] | | | | | | [phone] | | | | | | | | +--------+ + + + + documented as of this encounter Visit Diagnoses Not on filedocumented in this encounter"
--- OUTSIDE RECORDS SUMMARY | ~2020-07-29 | XMS | Encounter Summary ---
Demographics + + + | Address | [address] | | | [place] [address] | + + + | Home Phone [...] [place] | | | | | [address] | | + + + + + Care Team Providers + +------+ + | Care Senior Safety Management Consultant Name | Role | Phone | [...] [address] | [address] [place], | | | | | [place], | [place] [address] | | | | | [place] [address] | [phone] | | | | | [phone] | | | +--------+ + + + [...] | | 2020 | [place] | | [address] | | | | | | [address] | | | | | | [place], [place] | | | | | | [address] | | | | | | [phone] | | | | | | | | +--------+ + + + + | 09/27/ | Telephone-S | Liver Transplant | Vimal Crowe MD | | | 2019 | [place] | | [address] | | | | | | [address], | | | | | | [place] [address] | | | | | | [phone] | | | | | | | | +--------+ + + + + | 10/03/ | Appointment | Cardiology | | | | 2019 | | | | | +--------+ + + + + | 10/03/ | Office | Cardiology | Cyril Samuel | | | 2019 | Visit | | MD Patricia [address] | | | | | | [address] | | | | | | [place], [place] | | | | | | [address] | | | | | | [phone] | | | | | | | | +--------+ + + + + documented as of this encounter Visit Diagnoses Not on filedocumented in this encounter"
--- OUTSIDE RECORDS SUMMARY | ~2020-07-29 | XMS | Encounter Summary ---
Demographics + + + | Address | [address] | | | [place] [address] | + + + | Home Phone [...] [place] | | | | | [address] | | + + + + + Care Team Providers + +------+ + | Care Fire Engineer Name | Role | Phone | [...] | [address] | [address] [place], | | | | | [place], | [place] [address] | | | | | [place] [address] | [phone] | | | | | [phone] | | | +--------+ + + + [...] Rd | | | | | | [place], [place] | | | | | | [address] | | | | | | [phone] | | | | | | | | +--------+ + + + + | 09/27/ | Telephone-S | Liver Transplant | Vimal Crowe MD | | | 2019 | [place] | | [address] | | | | | | [facility] [address] [place], | | | | | | [place] [address] | | | | | | [phone] | | | | | | | | +--------+ + + + + | 10/03/ | Appointment | Cardiology | | | | 2019 | | | | | +--------+ + + + + | 10/03/ | Office | Cardiology | Cyril Samuel | | | 2019 | Visit | Darren Gomez MD [address] | | | | | | [address] | | | | | | [place], [place] | | | | | | [address] | | | | | | [phone] | | | | | | | [address] | [place] | [phone] | | [place] | | | | + + + + + documented in this encounter Visit Diagnoses Not on filedocumented in this encounter"
--- OUTSIDE RECORDS SUMMARY | ~2020-07-29 | XMS | Encounter Summary ---
Demographics + + + | Address | [address] | | | [place] [address] | + + + | Home Phone [...] [place] | | | | | [address] | | + + + + + Care Team Providers + +------+ + | Care Senior Web Engineer Name | Role | Phone | + +------+ + | Sharon David MD | PCP | | + +------+ + Encounter Details +--------+ + + + + | Date | Type | Department | Care Team | Description | +--------+ + + + + | 10/07/ | Pharmacy | Outpatient Retail | | | | 2018 | Visit | [facility] | | | | | | [address] | | | | | | [place], [place] | | | | | | [address] | | | | | | [phone] | | | +--------+ + + + [...] Rd | | | | | | [place], [place] | | | | | | [address] | | | | | | [phone] | | | | | | | | +--------+ + + + + | 09/27/ | Telephone-S | Liver Transplant | Vimal Crowe MD | | | 2019 | cheduled | | [address] | | | | | | [facility] [place], | | | | | | [place] [address] | | | | | | [phone] | | | | | | | [...] | | | | | | [place], [place] | | | | | | [address] | | | | | | [phone] | | | | | | | | +--------+ + + + + documented as of this encounter Visit Diagnoses Not on filedocumented in this encounter"
--- OUTSIDE RECORDS SUMMARY | ~2020-07-29 | XMS | Encounter Summary ---
Demographics + + + | Address | [address] | | | [place] [address] | + + + | Home Phone [...] [place] | | | | | [address] | | + + + + + Care Team Providers + +------+ + | Care Sales Trainee Name | Role | Phone | + +------+ + | Sharon David MD | PCP | | + +------+ + Encounter Details +--------+ + + + + | Date | Type | Department | Care Team | Description | +--------+ + + + + | 05/23/ | Pharmacy | [facility] | | | | 2020 | Visit | [address] | | | | | | [address] | | | | | | [place] [address] | | | | | | [phone] | | | +--------+ + + + [...] Rd | | | | | | [place], [place] | | | | | | [address] | | | | | | [phone] | | | | | | | | +--------+ + + + + | 09/27/ | Telephone-S | Liver Transplant | Vimal Crowe MD | | | 2019 | cheduled | | [address] | | | | | | [address], | | | | | | [place] [address] | | | | | | [phone] | | | | | | | [...] Rd | | | | | | [place] | | | | | | [address] | | | | | | [phone] | | | | | | | | +--------+ + + + + documented as of this encounter Visit Diagnoses Not on filedocumented in this encounter"
--- OUTSIDE RECORDS SUMMARY | ~2020-07-29 | XMS | Encounter Summary ---
Demographics + + + | Address | [address] | | | [place] [address] | + + + | Home Phone [...] [place] | | | | | [address] | | + + + + + Care Team Providers + +------+ + | Care Cadd Drafter Name | Role | Phone | + [...] Description | +--------+--------+ + + + | 11/10/ | Refill | Clinical | Marsha Garcia, | Refill Request | | 2020 | | Transplant Services | [address] | | | | | [address] | [address] | | | | | [place], | [place], [place] | | | | | [place] [address] | [address] | | | | | [phone] | [phone] | | | | | | | [...] Rd | | | | | | [place], [place] | | | | | | [address] | | | | | | [phone] | | | | | | | | +--------+ + + + + | 09/27/ | Telephone-S | Liver Transplant | Vimal Crowe MD | | | 2019 | [place] | | [address] | | | | | | [address], | | | | | | [place] [address] | | | | | | [phone] | | | | | | | | +--------+ + + + + | 10/03/ | Appointment | Cardiology | | | | 2019 | | | | | +--------+ + + + + | 10/03/ | Office | Cardiology | Cyril Samuel | | | 2020 | Visit | | MD [address]ricia [address] | | | | | | [address] | | | | | | [place] | | | | | | [address] | | | | | | [phone] | | | | | | | | +--------+ + + + + documented as of this encounter Visit Diagnoses Not on filedocumented in this encounter"
--- OUTSIDE RECORDS SUMMARY | ~2020-07-29 | XMS | Encounter Summary ---
Demographics + + + | Address | [address] | | | [place] [address] | + + + | Home Phone [...] [place] | | | | | [address] | | + + + + + Care Team Providers + +------+ + | Care Phone Engineer Name | Role | Phone | + +------+ + | Sharon David MD | PCP | | + +------+ + Encounter Details +--------+ + + + + | Date | Type | Department | Care Team | Description | +--------+ + + + + | 06/29/ | Pharmacy | [facility] | | | | 2020 | Visit | [address] | | | | | | [address] | | | | | | [place] [address] | | | | | | [phone] | | | +--------+ + + + [...] Rd | | | | | | [place], [place] | | | | | | [address] | | | | | | [phone] | | | | | | | | +--------+ + + + + | 09/27/ | Telephone-S | Liver Transplant | Vimal Crowe MD | | | 2019 | cheduled | | [address] | | | | | | [address], | | | | | | [place] [address] | | | | | | [phone] | | | | | | | [...] | | | | | | [place] | | | | | | [address] | | | | | | [phone] | | | | | | | | +--------+ + + + + documented as of this encounter Visit Diagnoses Not on filedocumented in this encounter"
--- OUTSIDE RECORDS SUMMARY | ~2020-07-29 | XMS | Encounter Summary ---
Demographics + + + | Address | [address] | | | [place] [address] | + + + | Home Phone [...] [place] | | | | | [address] | | + + + + + Care Team Providers + +------+ + | Care Sand Miller Name | Role | Phone | + +------+ + | Sharon David MD | PCP | | + +------+ + Reason for Visit + +--------+ + | Reason | Onset | Comments | | | Date | | + +--------+ + | Follow-up encounter | 06/19/ | | | | 2018 | | + +--------+ + Encounter Details +--------+ + + + + | Date | Type | Department | Care Team | Description | +--------+ + + + + | 06/19/ | Telephone | Cardiology General | Chasidy Osullivan | Follow-up encounter | | 2019 | | at [facility] [address] | ALEX Quintanilla [address] | | | | | [facility] | [address] [place], | | | | | [facility], | [place] [address] | | | | | [place] [address] [facility] | [phone] | | | | | [place], [place] | | | | | | [address] | | | | | | [phone] | | | +--------+ + + + [...] this encounter Miscellaneous Notes Telephone Encounter - Jennyfer Baca - 06/25/2019 12:22 PM [place]ill ext. [id number] w/liver transpl ant reports pt is very ill and they are asking to get him in sooner then 07.17.19. Is there a day that we can add him to Dr. Magallon's clinic or could we schedule with Oskar or advance HF? Pls contact Haley to schedule. Thank youElectronically signed by Jennyfer Baca at 9 12:25 PM PDTTelephone Encounter - Chasidy Osullivan PA-C - 06/19/2019 11:32 AM PDTLM f or Doreen about need for establishing with Dr. 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 Hopefully they can see Dr. Magallon 07/17/19. Call me back if any questions documented in this encounter Plan of Treatment +--------+ + + + + | Date | Type | Specialty | Care Team | Description | +--------+ + + + + | 08/08/ | Telephone-S | Nephrology | Angélica Chao, | | | 2019 | [place] | | [address] [facility] [address] | | | | | | [facility] | | | | | | [place], [place] | | | | | | [address] | | | | | | [phone] | | | | | | | | +--------+ + + + + | 09/27/ | Telephone-S | Liver Transplant | Vimal Crowe MD | | | 2019 | cheduled | | [address] | | | | | | [facility] [address] [place], | | | | | | [place] [address] | | | | | | [phone] | | | | | | | [...] Rd | | | | | | [place], [place] | | | | | | [address] | | | | | | [phone] | | | | | | | | +--------+ + + + + documented as of this encounter Visit Diagnoses Not on filedocumented in this encounter"
--- OUTSIDE RECORDS SUMMARY | ~2020-07-29 | XMS | Encounter Summary ---
Demographics + + + | Address | [address] | | | [place] [address] | + + + | Home Phone [...] [place] | | | | | [address] | | + + + + + Care Team Providers + +------+ + | Care Mitten Stitcher Name | Role | Phone | + +------+ + | Sharon David MD | PCP | | + +------+ + Encounter Details +--------+ + + + + | Date | Type | Department | Care Team | Description | +--------+ + + + + | 04/27/ | Pharmacy | [facility] | | | | 2020 | Visit | [address] | | | | | | [address] | | | | | | [place] [address] | | | | | | [phone] | | | +--------+ + + + [...] Rd | | | | | | [place], [place] | | | | | | [address] | | | | | | [phone] | | | | | | | | +--------+ + + + + | 09/27/ | Telephone-S | Liver Transplant | Vimal Crowe MD | | | 2019 | cheduled | | [address] | | | | | | [address], | | | | | | [place] [address] | | | | | | [phone] | | | | | | | [address] Rd | | | | | | [place] | | | | | | [address] | | | | | | [phone] | | | | | | | | +--------+ + + + + documented as of this encounter Visit Diagnoses Not on filedocumented in this encounter"
--- OUTSIDE RECORDS SUMMARY | ~2020-07-29 | XMS | Encounter Summary ---
Demographics + + + | Address | [address] | | | [place] [address] | + + + | Home Phone [...] [place] | | | | | [address] | | + + + + + Care Team Providers + +------+ + | Care Diesel Scoop Operator Name | Role | Phone | + +------+ + | Sharon David MD | PCP | | + +------+ + Encounter Details +--------+------+ + + + | Date | Type | Department | Care Team | Description | +--------+------+ + + + | 11/02/ | Lab | [facility] | | Liver transplant | | 2019 | | [address] | | status (HCC) | | | | [address] [facility] | | | | | | [place], 3rd floor | | | | | | [place], [place] | | | | | | [address] | | | | | | [phone] | | | +--------+------+ + + + [...] Rd | | | | | | [facility] [place] | | | | | | [address] | | | | | | [phone] | | | | | | | | +--------+ + + + + | 09/27/ | Telephone-S | Liver Transplant | Vimal Crowe MD | | | 2019 | [place] | | [address] | | | | | | [address], | | | | | | [place] [address] | | | | | | [phone] | | | | | | | [...] Rd | | | | | | [place], [place] | | | | | | [address] | | | | | | [phone] | | | | | | | | +--------+ + + + + documented as of this encounter Procedures + +--------+ + + + | Procedure Name | Priori | Date/Time | Associated Diagnosis | Comments | | | ty | | | | + +--------+ + + + | CBC AND AUTO DIFF | Routin | 11/02/2019 | Liver transplant | Results for this | | | e | 10:10 AM | status (HCC) | procedure are in the | | | | PST | | results section. | + +--------+ + + + | CBC, WITH | Routin | 11/02/2019 | Liver transplant | Results for this | | DIFFERENTIAL | e | 10:10 AM | status (HCC) | procedure are in the | | | | PST | | results section. | + +--------+ + + + | COMPLETE METABOLIC | Routin | 11/02/2019 | Liver transplant | Results for this | | SET | e | 10:10 AM | status (HCC) | procedure are in the | | (NA,K,CL,CO2,BUN,CRE | | PST | | results section. | | AT,GLUC,CA,AST,ALT,B | | | | | | KEV TOTAL,ALK | | | | | | PHOS,ALB,PROT TOTAL) | | | | | + +--------+ + + + | TACROLIMUS, WHOLE | Routin | 11/02/2019 | Liver transplant | Results for this | | BLOOD | e | 10:10 AM | status (HCC) | procedure are in the | | | | PST | | results section. | + +--------+ + + + | PHOSPHORUS, PLASMA | Routin | 11/02/2019 | Liver transplant | Results for this | | | e | 10:10 AM | status (HCC) | procedure are in the | | | | PST | | results section. | + +--------+ + + + | BILIRUBIN DIRECT | Routin | 11/02/2019 | Liver transplant | Results for this | | | e | 10:10 AM | status (HCC) | procedure are in the | | | | PST | | results section. | + +--------+ + + + | URIC ACID, PLASMA | Routin | 11/02/2019 | Liver transplant | Results for this | | | e | 10:10 AM | status (HCC) | procedure are in the | | | | PST | | results section. | + +--------+ + + + | MAGNESIUM, PLASMA | Routin | 11/02/2019 | Liver transplant | Results for this | | | e | 10:10 AM | status (HCC) | procedure are in the | | | | PST | | results section. | + +--------+ + + + documented in this encounter Results CBC AND AUTO DIFF (11/02/2019 10:10 AM PST) + + + + + + | Component | Value | Ref Range | Performed | Pathologist | | | | | At | Signature | + + + + + + | WHITE CELL | 2.56 (L) | 3.50 - 10.80 | [facility] | | | COUNT | | K/cu mm | LABORATORY | | | | | | SERVICES, | | | | | | CORE | | + + + + + + | RED CELL | 3.45 (L) | 4.50 - 6.00 | [facility] [...] + + + + | MCV | 91.9 | 80.0 - 100.0 fL | [facility] | | | | | | LABORATORY | | | | | | SERVICES, | | | | | | CORE | | + + + + + + | MCHC | 30.6 (L) | 32.0 - 36.0 | [facility] [...] + + + | PLATELET | 77 (L) | 150 - 400 K/cu | [...] + + + + | NEUTROPHIL | 57.8 | 50.0 - 70.0 % | [facility] | | | % | | | LABORATORY | | | | | | SERVICES, | | | | | | CORE | | + + + + + + | LYMPHOCYTE | 22.7 | 18.0 - 42.0 % | [facility] | | | % | | | LABORATORY | | | | | | SERVICES, | | | | | | CORE | | + + + + + + | MONOCYTE % | 10.5 (H) | 3.5 - 9.0 % | [facility] | | | | | | LABORATORY | | | | | | SERVICES, | | | | | | CORE | | + + + + + + | EOS % | 6.6 (H) | 1.0 - 3.0 % | [facility] | | | | | | LABORATORY | | | | | | SERVICES, | | | | | | CORE | | + + + + + + | BASO % | 1.6 | 0.0 - 2.0 % | [facility] [...] + + + + | NEUTROPHIL | 1.48 (L) | 1.80 - 7.70 | [facility] [...] + + + | MONOCYTE # | 0.27 | 0.10 - 0.90 | [facility] | | | | | K/cu mm | LABORATORY | | | | | | SERVICES, | | | | | | CORE | | + + + + + + | EOS # | 0.17 | 0.00 - 0.50 | [facility] | [...] | + + + + + | [facility] | [address] | [place] [address] | | | SERVICES, CORE | MOISES [...] [facility] | [address] | [place] [address] | | | SERVICES, CORE | MOISES [...] | Test performed by immunoassay using Palafox Bulk Station Agent i2000. . | [facility] | | Samples [...] | + + + + + | [facility] | [address] | [place] [address] | | | SERVICES, SPECIAL | PARK [...] [facility] | [address] | [place] [address] | | | SERVICES, CORE | PARK [...] [facility] | [address] | [place] [address] | | | SERVICES, ARTIS | PARK [...] | + + + + + | [facility] | [address] | [place] [address] | | | SERVICES, CORE | MOIS[address] [...] | + + + + + | [facility] | [address] | [place] [address] | | | SERVICES, CORE | [address] | | | + + + + + documented in this encounter Visit Diagnoses + + | Diagnosis | + + | Liver transplant status (HCC) | + + documented in this encounter"
--- OUTSIDE RECORDS SUMMARY | ~2020-07-29 | XMS | Encounter Summary ---
Demographics + + + | Address | [address] | | | [place] [address] | + + + | Home Phone [...] [place] | | | | | [address] | | + + + + + Care Team Providers + +------+ + | Care Nail Puller Name | Role | Phone | + +------+ + | Sharon David MD | PCP | | + +------+ + Encounter Details +--------+ + + + + | Date | Type | Department | Care Team | Description | +--------+ + + + + | 11/16/ | Pharmacy | Outpatient [facility] | | | | 2019 | Visit | [facility] | | | | | | [address] | | | | | | Loop [place], [place] | | | | | | [address] | | | | | | [phone] | | | +--------+ + + + [...] Rd | | | | | | [place], [place] | | | | | | [address] | | | | | | [phone] | | | | | | | | +--------+ + + + + | 09/27/ | Telephone-S | Liver Transplant | Vimal Crowe MD | | | 2019 | [place] | | [address] | | | | | | [facility] [place], | | | | | | [place] [address] | | | | | | [phone] | | | | | | | [...] Rd | | | | | | [place], [place] | | | | | | [address] | | | | | | [phone] | | | | | | | | +--------+ + + + + documented as of this encounter Visit Diagnoses Not on filedocumented in this encounter"
--- OUTSIDE RECORDS SUMMARY | ~2020-07-29 | XMS | Encounter Summary ---
Demographics + + + | Address | [address] | | | [place] [address] | + + + | Home Phone [...] [place] | | | | | [address] | | + + + + + Care Team Providers + +------+ + | Care Nipple Maker Name | Role | Phone | + +------+ + | Sharon David MD | PCP | | + +------+ + Encounter Details +--------+ + + + + | Date | Type | Department | Care Team | Description | +--------+ + + + + | 04/25/ | Pharmacy | [facility] | | | | 2020 | Visit | [address] | | | | | | [address] | | | | | | [place] [address] | | | | | | [phone] | | | +--------+ + + + [...] Rd | | | | | | [place], [place] | | | | | | [address] | | | | | | [phone] | | | | | | | | +--------+ + + + + | 09/27/ | Telephone-S | Liver Transplant | Vimal Crowe MD | | | 2019 | [place] | | [address] | | | | | | [address], | | | | | | [place] [address] | | | | | | [phone] | | | | | | | [...] Rd | | | | | | [place] | | | | | | [address] | | | | | | [phone] | | | | | | | | +--------+ + + + + documented as of this encounter Visit Diagnoses Not on filedocumented in this encounter"
--- OUTSIDE RECORDS SUMMARY | ~2020-07-29 | XMS | Encounter Summary ---
Demographics + + + | Address | [address] | | | [place] [address] | + + + | Home Phone [...] [place] | | | | | [address] | | + + + + + Care Team Providers + +------+ + | Care Director Inpatient Headache Program Name | Role | Phone | + +------+ + | Sharno David MD | PCP | | + +------+ + Reason for Visit + + + | Reason | Comments | + + + | Medical Records | | | Review | | + + + Encounter Details +--------+ + + + + | Date | Type | Department | Care Team | Description | +--------+ + + + + | 02/13/ | Abstract | Digestive Health | Vimal Crowe MD | Medical Records | | 2019 | | Center at [facility] [address] | [address] | Review | | | | [address] | [address] [place], | | | | | [facility] and | [place] [address] | | | | | [place] [address] | [phone] | | | | | [place], [place] | | | | | | [address] | | | | | | [phone] | | | +--------+ + + + [...] Rd | | | | | | [place], [place] | | | | | | [address] | | | | | | [phone] | | | | | | | | +--------+ + + + + | 09/27/ | Telephone-S | Liver Transplant | Vimal Crowe MD | | | 2019 | [place] | | [address] | | | | | | [address], | | | | | | [place] [address] | | | | | | [phone] | | | | | | | | +--------+ + + + + | 10/03/ | Appointment | Cardiology | | | | 2019 | | | | | +--------+ + + + + | 10/03/ | Office | Cardiology | Cyril Samuel | | | 2019 | Visit | | MD Patricia [address] [facility] | | | | | | [address] | | | | | | [place], [place] | | | | | | [address] | | | | | | [phone] | | | | | | | | +--------+ + + + + documented as of this encounter Visit Diagnoses Not on filedocumented in this encounter"
--- OUTSIDE RECORDS SUMMARY | ~2020-07-29 | XMS | Encounter Summary ---
Demographics + + + | Address | [address] | | | [place] [address] | + + + | Home Phone [...] [place] | | | | | [address] | | + + + + + Care Team Providers + +------+ + | Care Rn Appeals Name | Role | Phone | + +------+ + | Sharon David MD | PCP | | + +------+ + Encounter Details +--------+ + + + + | Date | Type | Department | Care Team | Description | +--------+ + + + + | 05/26/ | Pharmacy | [facility] | | | | 2020 | Visit | [address] | | | | | | [address] | | | | | | [place] [address] | | | | | | [phone] | | | +--------+ + + + [...] Rd | | | | | | [place], [place] | | | | | | [address] | | | | | | [phone] | | | | | | | | +--------+ + + + + | 09/27/ | Telephone-S | Liver Transplant | Vimal Crowe MD | | | 2019 | cheduled | | [address] | | | | | | [address], | | | | | | [place] [address] | | | | | | [phone] | | | | | | | [...] Rd | | | | | | [place] | | | | | | [address] | | | | | | [phone] | | | | | | | | +--------+ + + + + documented as of this encounter Visit Diagnoses Not on filedocumented in this encounter"
--- OUTSIDE RECORDS SUMMARY | ~2020-07-29 | XMS | Encounter Summary ---
Demographics + + + | Address | [address] | | | [place] [address] | + + + | Home Phone [...] [place] | | | | | [address] | | + + + + + Care Team Providers + +------+ + | Care Early Childhood Education Instructor Name | Role | Phone | + +------+ + | Sharon David MD | PCP | | + +------+ + Encounter Details +--------+ + + + + | Date | Type | Department | Care Team | Description | +--------+ + + + + | 11/20/ | MyChart | Nephrology & | Angélica Chao, | lab result | | 2020 | Encounter | [facility] | [address] | | | | | [address] | [address] | | | | | [address] | [place], [place] | | | | | [place], 3rd floor | [address] | | | | | [place], [place] | [phone] | | | | | [address] | | | | | | [phone] | | | +--------+ + + + [...] Rd | | | | | | [place], [place] | | | | | | [address] | | | | | | [phone] | | | | | | | | +--------+ + + + + | 09/27/ | Telephone-S | Liver Transplant | Vimal Crowe MD | | | 2019 | cheduled | | [address] | | | | | | [address], | | | | | | [place] [address] | | | | | | [phone] | | | | | | | [...] Rd | | | | | | [place], [place] | | | | | | [address] | | | | | | [phone] | | | | | | | | +--------+ + + + + documented as of this encounter Visit Diagnoses Not on filedocumented in this encounter"
--- OUTSIDE RECORDS SUMMARY | ~2020-07-29 | XMS | Encounter Summary ---
Demographics + + + | Address | [address] | | | [place] [address] | + + + | Home Phone [...] [place] | | | | | [address] | | + + + + + Care Team Providers + +------+ + | Care Portable Sawmill Operator Name | Role | Phone | + +------+ + | Sharon David MD | PCP | | + +------+ + Encounter Details +--------+ + + + + | Date | Type | Department | Care Team | Description | +--------+ + + + + | 06/30/ | Pharmacy | [facility] | | | | 2020 | Visit | [address] | | | | | | [address] | | | | | | [place] [address] | | | | | | [phone] | | | +--------+ + + + [...] Rd | | | | | | [place], [place] | | | | | | [address] | | | | | | [phone] | | | | | | | | +--------+ + + + + | 09/27/ | Telephone-S | Liver Transplant | Vimal Crowe MD | | | 2019 | cheduled | | [address] | | | | | | [address], | | | | | | [place] [address] | | | | | | [phone] | | | | | | | [...] Rd | | | | | | [place] | | | | | | [address] | | | | | | [phone] | | | | | | | | +--------+ + + + + documented as of this encounter Visit Diagnoses Not on filedocumented in this encounter"
--- OUTSIDE RECORDS SUMMARY | ~2020-07-29 | XMS | Encounter Summary ---
Demographics + + + | Address | [address] | | | [place] [address] | + + + | Home Phone [...] [place] | | | | | [address] | | + + + + + Care Team Providers + +------+ + | Care Payment Poster Name | Role | Phone | + +------+ + | Sharon David MD | PCP | | + +------+ + Reason for Visit + + + | Reason | Comments | + + + | Referral To | | | Gastroenterology | | + + + Encounter Details +--------+ + + + + | Date | Type | Department | Care Team | Description | +--------+ + + + + | 10/09/ | Abstract | Digestive Health | Clinic, | Referral To | | 2017 | | Center at [facility] [address] | Gastroenterology | Gastroenterology | | | | [address] [place] | | | | | | for Health and | | | | | | [facility] [address] | | | | | | [place], [place] | | | | | | [address] | | | | | | [phone] | | | +--------+ + + + [...] | | 2019 | [place] | | [address] | | | | | | [address] | | | | | | [place], [place] | | | | | | [address] | | | | | | [phone] | | | | | | | | +--------+ + + + + | 09/27/ | Telephone-S | Liver Transplant | Vimal Crowe MD | | | 2019 | [place] | | [address] | | | | | | [address], | | | | | | [place] [address] | | | | | | [phone] | | | | | | | | +--------+ + + + + | 10/03/ | Appointment | Cardiology | | | | 2019 | | | | | +--------+ + + + + | 10/03/ | Office | Cardiology | Cyril Samuel | | | 2019 | Visit | | MD Patricia [address] | | | | | | [address] | | | | | | [place], [place] | | | | | | [address] | | | | | | [phone] | | | | | | | | +--------+ + + + + documented as of this encounter Visit Diagnoses Not on filedocumented in this encounter"
--- OUTSIDE RECORDS SUMMARY | ~2020-07-29 | XMS | Encounter Summary ---
Demographics + + + | Address | [address] | | | [place] [address] | + + + | Home Phone [...] [place] | | | | | [address] | | + + + + + Care Team Providers + +------+ + | Care Data Services Developer Name | Role | Phone | + +------+ + | Sharon David MD | PCP | | + +------+ + Encounter Details +--------+ + + + + | Date | Type | Department | Care Team | Description | +--------+ + + + + | 07/11/ | Pharmacy | [facility] | | | | 2020 | Visit | [address] | | | | | | [address] | | | | | | [place] [address] | | | | | | [phone] | | | +--------+ + + + [...] Rd | | | | | | [place], [place] | | | | | | [address] | | | | | | [phone] | | | | | | | | +--------+ + + + + | 09/27/ | Telephone-S | Liver Transplant | Vimal Crowe MD | | | 2019 | cheduled | | [address] | | | | | | [address], | | | | | | [place] [address] | | | | | | [phone] | | | | | | | [...] | | | | | | [place] | | | | | | [address] | | | | | | [phone] | | | | | | | | +--------+ + + + + documented as of this encounter Visit Diagnoses Not on filedocumented in this encounter"
--- OUTSIDE RECORDS SUMMARY | ~2020-07-29 | XMS | Encounter Summary ---
Demographics + + + | Address | [address] | | | [place] [address] | + + + | Home Phone [...] [place] | | | | | [address] | | + + + + + Care Team Providers + +------+ + | Care Home Inspector Name | Role | Phone | + +------+ + | Sharon David MD | PCP | | + +------+ + Encounter Details +--------+ + + + + | Date | Type | Department | Care Team | Description | +--------+ + + + + | 03/19/ | Customer Support Executive | Nephrology & | Alicia Canchola, | CKD (chronic kidney | | 2019 | | [facility] | DO [address] | disease) stage 3, | | | | [address] | [address] | GFR 30-59 ml/min | | | | Loop [facility] | [place], [place] | (HCC) (Primary Dx); | | | | [address], 3rd floor | [address] | Hepatorenal syndrome | | | | [place], [place] | [phone] | (HCC) | | | | [address] | | | | | | [phone] | | | +--------+ + + + [...] this encounter Miscellaneous Notes Telephone Encounter - Alicia Canchola DO - 03/19/2019 3:39 PM PDTErin can fax renal func tion set for mr ruffin He gets his [facility] at [facility] in [facility] [phone] n ot sure if this is their phone number or fax. Blood work to be done on April 01. Thanks Dr Lundylectronically signed by Alicia Canchola DO at 03/19/2019 3:43 PM PDTdocumentjayce d in this encounter Plan of Treatment [...] Rd | | | | | | [place], [place] | | | | | | [address] | | | | | | [phone] | | | | | | | | +--------+ + + + + | 09/27/ | Telephone-S | Liver Transplant | Vimal Crowe MD | | | 2019 | [place] | | [address] | | | | | | [address], | | | | | | [place] [address] | | | | | | [phone] | | | | | | | [...] Rd | | | | | | [place], [place] | | | | | | [address] | | | | | | [phone] | | | | | | | | +--------+ + + + + documented as of this encounter Visit Diagnoses + + | Diagnosis | + + | CKD (chronic kidney disease) stage 3, GFR 30-59 ml/min - Primary Chronic kidney | | disease, Stage III (moderate) | + + | Hepatorenal syndrome (HCC) Hepatorenal syndrome | + + documented in this encounter"
--- OUTSIDE RECORDS SUMMARY | ~2020-07-29 | XMS | Encounter Summary ---
Demographics + + + | Address | [address] | | | [place] [address] | + + + | Home Phone [...] [place] | | | | | [address] | | + + + + + Care Team Providers + +------+ + | Care Block Hacker Name | Role | Phone | + +------+ + | Sharon David MD | PCP | | + +------+ + Encounter Details +--------+------+ + + + | Date | Type | Department | Care Team | Description | +--------+------+ + + + | 11/16/ | Lab | [facility] at [facility] | | Liver transplant | | 2020 | | [address] | | status (HCC); Iron | | | | Loop [facility] | | overload; Liver | | | | Pavilion, 3rd floor | | replaced by | | | | [place], [place] | | transplant (HCC); | | | | [address] | | CKD (chronic kidney | | | | [phone] | | disease) stage 3, | | | | | | GFR 30-59 ml/min | | | | | | (HCC) | +--------+------+ + + + Social History [...] | | 2020 | [place] | | [address] [facility] [address] | | | | | | [address] | | | | | | [place], [place] | | | | | | [address] | | | | | | [phone] | | | | | | | | +--------+ + + + + | 09/27/ | Telephone-S | Liver Transplant | Vimal Crowe MD | | | 2019 | [place] | | [address] | | | | | | [address], | | | | | | [place] [address] | | | | | | [phone] | | | | | | | | +--------+ + + + + | 10/03/ | Appointment | Cardiology | | | | 2019 | | | | | +--------+ + + + + | 10/03/ | Office | Cardiology | Cyril Samuel | | | 2019 | Visit | | MD Patricia [address] | | | | | | [address] | | | | | | [place], [place] | | | | | | [address] | | | | | | [phone] | | | | | | | | +--------+ + + + + documented as of this encounter Procedures + +--------+ + + + | Procedure Name | Priori | Date/Time | Associated Diagnosis | Comments | | | ty | | | | + +--------+ + + + | CBC AND AUTO DIFF | Routin | 11/16/2019 | Liver transplant | Results for this | | | e | 7:41 AM | status (HCC) | procedure are in the | | | | PST | | results section. | + +--------+ + + + | CBC, WITH | Routin | 11/16/2019 | Liver transplant | Results for this | | DIFFERENTIAL | e | 7:41 AM | status (HCC) | procedure are in the | | | | PST | | results section. | + +--------+ + + + | COMPLETE METABOLIC | Routin | 11/16/2019 | Liver transplant | Results for this | | SET | e | 7:41 AM | status (HCC) | procedure are in the | | (NA,K,CL,CO2,BUN,CRE | | PST | | results section. | | AT,GLUC,CA,AST,ALT,B | | | | | | KEV TOTAL,ALK | | | | | | PHOS,ALB,PROT TOTAL) | | | | | + +--------+ + + + | TACROLIMUS, WHOLE | Routin | 11/16/2019 | Liver transplant | Results for this | | BLOOD | e | 7:41 AM | status (HCC) | procedure are in the | | | | PST | | results section. | + +--------+ + + + | PHOSPHORUS, PLASMA | Routin | 11/16/2019 | Liver transplant | Results for this | | | e | 7:41 AM | status (HCC) | procedure are in the | | | | PST | | results section. | + +--------+ + + + | FERRITIN | Routin | 11/16/2019 | Iron overload | Results for this | | | e | 7:41 AM | | procedure are in the | | | | PST | | results section. | + +--------+ + + + | PTH, SERUM | Routin | 11/16/2019 | CKD (chronic | Results for this | | | e | 7:41 AM | kidney disease) | procedure are in the | | | | PST | stage 3, GFR 30-59 | results section. | | | | | ml/min (HCC) | | + +--------+ + + + | BILIRUBIN DIRECT | Routin | 11/16/2019 | Liver transplant | Results for this | | | e | 7:41 AM | status (HCC) | procedure are in the | | | | PST | | results section. | + +--------+ + + + | URIC ACID, PLASMA | Routin | 11/16/2019 | Liver transplant | Results for this | | | e | 7:41 AM | status (HCC) | procedure are in the | | | | PST | | results section. | + +--------+ + + + | MAGNESIUM, PLASMA | Routin | 11/16/2019 | Liver transplant | Results for this | | | e | 7:41 AM | status (HCC) | procedure are in the | | | | PST | | results section. | + +--------+ + + + documented in this encounter Results CBC AND AUTO DIFF (11/16/2019 7:41 AM PST) + + + + + + | Component | Value | Ref Range | Performed | Pathologist | | | | | At | Signature | + + + + + + | WHITE CELL | 1.18 (L) | 3.50 - 10.80 | [facility] [...] + + + + | NEUTROPHIL | 34.9 (L) | 50.0 - 70.0 % | [facility] | | | % | | | LABORATORY | | | | | | SERVICES, | | | | | | CORE | | + + + + + + | LYMPHOCYTE | 46.6 (H) | 18.0 - 42.0 % | [facility] [...] + + + | EOS % | 5.9 (H) | 1.0 - 3.0 % | [facility] | | | | | | LABORATORY | | | | | | SERVICES, | | | | | | CORE | | + + + + + + | BASO % | 2.5 (H) | 0.0 - 2.0 % | [facility] [...] + + + + | NEUTROPHIL | 0.41 (L) | 1.80 - 7.70 | [facility] | | | # | | K/cu mm | LABORATORY | | | | | | SERVICES, | | | | | | CORE | | + + + + + + | LYMPHOCYTE | 0.55 (L) | 1.00 - 4.80 | [facility] [...] + | [facility] | [address] | [place] [address] | | | SERVICES, CORE | [address] | | | + + + + + PTH, SERUM (11/16/2019 7:41 AM PST) + [...] [facility] | [address] | [place] [address] | | | SERVICES, CORE | [address] | | | + + + + + FERRITIN (11/16/2019 7:41 AM PST) + + [...] + | [facility] | [address] | [place] [address] | | | SERVICES, CORE | [address] | | | + + + + + URIC ACID, PLASMA (11/16/2019 7:41 AM PST) [...] [facility] | [address] | [place] [address] | | | SERVICES, CORE | [address] [...] | Test performed by immunoassay using Palafox Clay Washer i2000. . | [facility] | | Samples [...] [facility] | [address] | [place] [address] | | | SERVICES, SPECIAL | [address] [...] [facility] | [address] | [place] [address] | | | SERVICES, CORE | [address] [...] | + + + + + | [facility] | [address] | [place] [address] | | | SERVICES, CORE | [address] | | | + + + + + MAGNESIUM, PLASMA (11/16/2019 7:41 AM PST) + +-------+ + + + | Component | Value | Ref Range | Performed | Pathologist | | | | | At | Signature | + +-------+ + + + | MAGNESIUM,P | 1.7 | 1.6 - 2.6 mg/dL | [facility] | | | LASMA | | | [...] + | [facility] | [address] [facility] [facility] | [place] [address] | | | SERVICES, CORE | [address] [...] MDRD equation recommended by the National | [facility] | | Kidney Disease Education Program. Estimated [...] | + + + + + | [facility] | [address] | [place] [address] | | | SERVICES, CORE | [address] | | | + + + + + documented in this encounter Visit Diagnoses + + | Diagnosis | + + | Liver transplant status (HCC) | + + | Iron overload Other disorders of iron metabolism | + + | Liver replaced by transplant (HCC) Liver replaced by transplant | + + | CKD (chronic kidney disease) stage 3, GFR 30-59 ml/min Chronic kidney disease, Stage | | III (moderate) | + + documented in this encounter"
--- OUTSIDE RECORDS SUMMARY | ~2020-07-29 | XMS | Encounter Summary ---
Demographics + + + | Address | [address] | | | [place] [address] | + + + | Home Phone [...] [place] | | | | | [address] | | + + + + + Care Team Providers + +------+ + | Care Client Relation Specialist Name | Role | Phone | + +------+ + | Sharon David MD | PCP | | + +------+ + Reason for Visit + +--------+ + | Reason | Onset | Comments | | | Date | | + +--------+ + | Back pain | 11/28/ | | | | 2020 | | + +--------+ + Encounter Details +--------+ + + + + | Date | Type | Department | Care Team | Description | +--------+ + + + + | 11/28/ | Telephone | Clinical | Delmy Pollock, | Back pain | | 2020 | | Transplant Services | RN [address] | | | | | [address] | [address] | | | | | [place], | [place], [place] | | | | | [place] [address] | [address] | | | | | [phone] | | | +--------+ + + + [...] Telephone Encounter - Delmy Pollock RN - 11/28/2019 9:41 AM PSTOncall 09:40am Patient called just moved to [place] a few days ago, saw Dr. David his PCP also, but now complains of back muscle, spasm. I advised ED if he desires, or he can ice the back x 3 days then go to ice alternating with heat, take tylenol up to 1500 mg a day but not to take any ibuprofen/advil as his last creatinine was 1.7. Patient states he has some oxycodone there a nd took it, and he agrees with this plan. All questions answered. Routing to Post liver transplant team and Dr. Crowe as he has a f/u with her in the futureE lectronically signed by Delmy Pollock RN at 11/28/2019 9:49 AM PSTdocumented in this enc ounter Plan of Treatment +--------+ + + + + | Date | Type | Specialty | Care Team | Description | +--------+ + + + + | 08/08/ | Telephone-S | Nephrology | Angélica Chao, | | | 2019 | [place] | | [address] | | | | | | [address] | | | | | | [place], [place] | | | | | | [address] | | | | | | [phone] | | | | | | | | +--------+ + + + + | 09/27/ | Telephone-S | Liver Transplant | Vimal Crowe MD | | 2019 | [place] | | [address] | | | | | | [address] | | | | | [place] [address] | | | | | | [phone] | | | | | | | [...] [address] | | | | | [facility] | | | | | | [address] | | | | | | [phone] | | | | | | | | +--------+ + + + + documented as of this encounter Visit Diagnoses Not on filedocumented in this encounter"
--- OUTSIDE RECORDS SUMMARY | ~2020-07-29 | XMS | Encounter Summary ---
Demographics + + + | Address | [address] | | | [place] [address] | + + + | Home Phone [...] [place] | | | | | [address] | | + + + + + Care Team Providers + +------+ + | Care Compliance Testing Analyst Name | Role | Phone | + +------+ + | Sharon David MD | PCP | | + +------+ + Encounter Details +--------+ + + + + | Date | Type | Department | Care Team | Description | +--------+ + + + + | 08/16/ | Pharmacy | Outpatient Retail | | | | 2018 | Visit | [facility] | | | | | | [address] | | | | | | [address] [place], [place] | | | | | | [address] | | | | | | [phone] | | | +--------+ + + + [...] [place] | | | | | | [address] | | | | | | [phone] | | | | | | | | +--------+ + + + + | 09/27/ | Telephone-S | Liver Transplant | Vimal Crowe MD | | | 2019 | [place] | | [address] | | | | | | [facility] [place], | | | | | | [place] [address] | | | | | | [phone] | | | | | | | [...] [address] | | | | | | [place], [place] | | | | | | [address] | | | | | | [phone] | | | | | | | | +--------+ + + + + documented as of this encounter Visit Diagnoses Not on filedocumented in this encounter"
--- OUTSIDE RECORDS SUMMARY | ~2020-07-29 | XMS | Encounter Summary ---
Demographics + + + | Address | [address] | | | [place] [address] | + + + | Home Phone [...] [place] | | | | | [id number] | | + + + + + Care Team Providers + +------+ + | Care Bar Welder Name | Role | Phone | + [...] | [address] | [address] [place], | | | | | [place], | [place] [address] | | | | | [place] [address] | [phone] | | | | | [phone] | | | +--------+ + + + [...] Rd | | | | | | [place], [place] | | | | | | [address] | | | | | | [phone] | | | | | | | | +--------+ + + + + | 09/27/ | Telephone-S | Liver Transplant | Vimal Crowe MD | | | 2019 | [place] | | [address] | | | | | | [facility] [address] [place], | | | | | | [place] [address] | | | | | | [phone] | | | | | | | | +--------+ + + + + | 10/03/ | Appointment | Cardiology | | | | 2019 | | | | | +--------+ + + + + | 10/03/ | Office | Cardiology | Cyril Samuel | | | 2019 | Visit | Darren Gomez MD [address] | | | | | | [address] | | | | | | [place], [place] | | | | | | [address] | | | | | | [phone] | | | | | | | [...] [address] | [place] | [phone] | | [place] | | | | + + + + + documented in this encounter Visit Diagnoses Not on filedocumented in this encounter"
--- OUTSIDE RECORDS SUMMARY | ~2020-07-29 | XMS | Encounter Summary ---
Demographics + + + | Address | [address] | | | [place] [address] | + + + | Home Phone [...] [place] | | | | | [address] | | + + + + + Care Team Providers + +------+ + | Care Treatment Plant Operator Name | Role | Phone | + +------+ + | Sharon David MD | PCP | | + +------+ + Encounter Details +--------+ + + + + | Date | Type | Department | Care Team | Description | +--------+ + + + + | 05/25/ | Pharmacy | Outpatient Retail | | | | 2018 | Visit | Clinic Pharmacy | | | | | | [address] | | | | | | [place], [place] | | | | | | [address] | | | | | | [phone] | | | +--------+ + + + [...] Rd | | | | | | [place], [place] | | | | | | [address] | | | | | | [phone] | | | | | | | | +--------+ + + + + | 09/27/ | Telephone-S | Liver Transplant | Vimal Crowe MD | | | 2019 | [place] | | [address] | | | | | | [place], | | | | | | [place] [address] | | | | | | [phone] | | | | | | | [address] | | | | | | [place], [place] | | | | | | [address] | | | | | | [phone] | | | | | | | | +--------+ + + + + documented as of this encounter Visit Diagnoses Not on filedocumented in this encounter"
--- OUTSIDE RECORDS SUMMARY | ~2020-07-29 | XMS | Encounter Summary ---
Demographics + + + | Address | [address] | | | [place] [address] | + + + | Home Phone [...] [place] | | | | | [address] | | + + + + + Care Team Providers + +------+ + | Care Programmer Business Name | Role | Phone | + +------+ + | Sharon David MD | PCP | | + +------+ + Encounter Details +--------+ + + + + | Date | Type | Department | Care Team | Description | +--------+ + + + + | 01/25/ | Pharmacy | [facility] | | | | 2020 | Visit | [address] | | | | | | [address] | | | | | | [place] [address] | | | | | | [phone] | | | +--------+ + + + [...] | | | | | | [place], [place] | | | | | | [address] | | | | | | [phone] | | | | | | | | +--------+ + + + + | 09/27/ | Telephone-S | Liver Transplant | Vimal Crowe MD | | | 2019 | [place] | | [address] | | | | | | [address], | | | | | | [place] [address] | | | | | | [phone] | | | | | | | [...] | | | | | | [place] | | | | | | [address] | | | | | | [phone] | | | | | | | | +--------+ + + + + documented as of this encounter Visit Diagnoses Not on filedocumented in this encounter"
--- OUTSIDE RECORDS SUMMARY | ~2020-07-29 | XMS | Encounter Summary ---
Demographics + + + | Address | [address] | | | [place] [address] | + + + | Home Phone [...] [place] | | | | | [address] | | + + + + + Care Team Providers + +------+ + | Care Civil Designer Name | Role | Phone | + +------+ + | Sharon David MD | PCP | | + +------+ + Encounter Details +--------+ + + + + | Date | Type | Department | Care Team | Description | +--------+ + + + + | 07/07/ | MyChart | [facility] | Tyson Bellamy, | RE: Steffen Duran | | 2019 | Encounter | [facility] | MD [address] | | | | | [address] [place], | | | | | [address] [facility] | [place] [address] | | | | | [facility], | [phone] | | | | | [facility] [address] | | | | | | [place], [place] | | | | | | [address] | | | | | | [phone] | | | +--------+ + + + [...] Notes Telephone Encounter - Claudia Cotter - 07/07/2019 4:32 PM PDTTeam Coordinator Docum entation: Confirmed with [facility] P: That standing orders are at the facility and there was a miscommunication with the patient. Facility apologized and stated new standing orders are not required. P M PDTTelephone Encounter - Anshul Taylor RN - 07/07/2019 3:57 PM PDT __ -->My Chart message sent to patient. See for specifics. --> RED TC: Please re-fax standing lab orders to [facility]: documented in this enc ounter Plan of Treatment +--------+ + + + + | Date | Type | Specialty | Care Team | Description | +--------+ + + + + | 08/08/ | Telephone-S | Nephrology | Angélica Chao, | | | 2019 | [place] | | [address] | | | | | | [address] | | | | | | [place], [place] | | | | | | [address] | | | | | | [phone] | | | | | | | | +--------+ + + + + | 09/27/ | Telephone-S | Liver Transplant | Vimal Crowe MD | | | 2019 | [place] | | [address] | | | | | | [address], | | | | | | [place] [address] | | | | | | [phone] | | | | | | | [address] | | | | | | [place] | | | | | | [address] | | | | | | [phone] | | | | | | | | +--------+ + + + + documented as of this encounter Visit Diagnoses Not on filedocumented in this encounter"
--- OUTSIDE RECORDS SUMMARY | ~2020-07-29 | XMS | Encounter Summary ---
Demographics + + + | Address | [address] | | | [place] [address] | + + + | Home Phone [...] [place] | | | | | [address] | | + + + + + Care Team Providers + +------+ + | Care Parcel Post Carrier Name | Role | Phone | + +------+ + | Sharon David MD | PCP | | + +------+ + Encounter Details +--------+ + + + + | Date | Type | Department | Care Team | Description | +--------+ + + + + | 03/21/ | Pharmacy | [facility] | | | | 2020 | Visit | [address] | | | | | | [address] | | | | | | [place] [address] | | | | | | [phone] | | | +--------+ + + + [...] [address] | | | | | | [address] | | | | | | [place], [place] | | | | | | [address] | | | | | | [phone] | | | | | | | | +--------+ + + + + | 09/27/ | Telephone-S | Liver Transplant | Vimal Crowe MD | | | 2019 | [place]uled | | [address] | | | | | | [address], | | | | | | [place] [address] | | | | | | [phone] | | | | | | | [...] Rd | | | | | | [address] [place] [place] | | | | | | [address] | | | | | | [phone] | | | | | | | | +--------+ + + + + documented as of this encounter Visit Diagnoses Not on filedocumented in this encounter"
--- OUTSIDE RECORDS SUMMARY | ~2020-07-29 | XMS | Encounter Summary ---
Demographics + + + | Address | [address] | | | [place] [address] | + + + | Home Phone [...] [place] | | | | | [address] | | + + + + + Care Team Providers + +------+ + | Care Linoleum Installer Name | Role | Phone | [...] | +--------+ + + + + | 10/12/ | Hospital | [address] | Rod Weeks | | | 2019 - | Encounter | [address] | MD [address] | | | | | /[id number] | [address] | | | 10/27/ | | [facility], | Rd [place], [place] | | | 2020 | | [place] [address] | [address] | | | | | [phone] | [phone] | | | | | | | [...] + + + | Blood Pressure | 125/76 | 10/27/2019 11:47 AM | | | | | PST | | + + + + + | Pulse | 70 | 10/27/2019 11:47 AM | | | | | PST | | + + + + + | Temperature | 36.8 C (98.2 F) | 10/27/2019 11:47 AM | | | | | PST | | + + + + + | Respiratory Rate | 16 | 10/27/2019 11:47 AM | | | | | PST | | + + + + + | Oxygen Saturation | 100% | 10/27/2019 11:47 AM | | | | | PST | | + + + + + | Inhaled Oxygen | - | - | | | Concentration | | | | + + + + + | Weight | 81.6 kg (179 lb 14.3 | 10/27/2019 3:52 AM | | | | oz) | PST | | + + + + + | Height | 180.3 cm (5' 11") | 10/12/2019 1:45 PM | | | | | PST | | + + + + + | Body Mass Index | 25.09 | 10/12/2019 1:45 PM | | | | | PST [...] documented as of this encounter Discharge Summaries Nieves Small MD - 10/27/2019 12:16 PM PSTFormatting of this note might be different fro m the original. [facility] Discharge Summary Transplant Surgery Admit Date: 10/12/2019 Discharge Date: 10/27/19 PCP: Sharon David MD Attending Physician: Rod Hartley* Discharging Provider: Nieves Small MD Reason for Admission: Fatigue Principal Final Diagnosis: Failure to Thrive KAR S/p OLTx Depressed Mood SVT A-Fib Procedures: None Hospital Course By Problem: Donell Duran is a 54 y/o male with PMH of alcohol abuse, SVT, renal failure s/p OLTx on 2018 who was readmitted on 10/12 for KAR and failure to thrive and depressed mood. During this admission, Psychiatry was consulted and Mirtazapine was restarted. His KAR and protein calorie malnutrition resolved over the course of this hospitalization, and he ultima tely was able to meet his caloric intake goals with support from our social work, shell core and molding supervisor, and nursing staff. Initially, physical therapy worked with him and felt that he should go t o a SNF, however we were unable to find placement and the patient improve greatly throughout his admission. Additionally, the patient intermittently had runs of atrial tachycardia though he was asymp tomatic. Cardiology was consulted, however ultimately no changes were made to his home regim en during this hospitalization. On 10/26 the patient was hemodynamically stable, ambulating independently, voiding spontaneou sly, passing flatus, and tolerating enteral nutrition. The attending surgeon deemed him appr opriate for discharge and was discharged in good condition. Appropriate glycemic and thrombo tic prophylaxis was maintained the entire time. Appropriate discharge education was done. Th e patient was given instructions to follow up in clinic in as scheduled. Discharge Medications: Medication List START taking these medications BASAGLMARZENA BORJASIKPEN U-100 INSULIN 100 unit/mL (3 mL) Inpn Generic drug: insulin glargine Inject 10 Units under the skin (SUBC) once daily at bedtime. Indications: type 2 diabetes m ellitus fludrocortisone 0.1 mg Tab Commonly known as: FLORINEF Take 1 tablet by mouth once daily. glimepiride 1 mg Tab Commonly known as: AMARYL Take 1 tablet by mouth once daily with breakfast. Indications: type 2 diabetes mellitus CHANGE how you take these medications Blood Sugar Diagnostic Strp Commonly known as: FREESTYLE LITE STRIPS Use 1 test strip to check blood sugar two times daily before meals. Indications: type 2 gale betes mellitus What changed: when to take this metoprolol succinate 25 mg Tb24 Commonly known as: TOPROL-XL Take 1 tablet by mouth once daily. Indications: high blood pressure What changed: how much to take mirtazapine 30 mg Tab Commonly known as: REMERON Take 1 tablet by mouth once daily in the evening. Indications: lack of appetite What changed: medication strength how much to take tacrolimus 1 mg Cap Take 3 capsules by mouth two times daily. Indications: liver transplant rejection preventio n What changed: how much to take valGANciclovir 450 mg Tab Commonly known as: VALCYTE Take 1 tablet by mouth once daily. Indications: viral infection prevention What changed: when to take this CONTINUE taking these medications Alcohol Swabs Padm Commonly known as: ALCOHOL PREP SWABS Apply 1 each to affected area five times daily. Use as directed. amiodarone 200 mg Tab Commonly known as: CORDARONE Take 1 tablet by mouth once daily. Indications: Prevention of Ventricular Fibrillation aspirin EC 325 mg Tbec Take 1 tablet by mouth once daily. atovaquone 750 mg/5 mL Susp Commonly known as: MEPRON Take 10 mL by mouth once daily. BD Insulin Pen Needle UF 31 gauge x 5/16" Ndle Generic drug: Insulin Mesilla (Disposable) Use as directed for 5 insulin injections per day. Blood-Glucose Meter Kit Commonly known as: FREESTYLE LITE METER Use as directed. Use as directed. FREESTYLE LANCETS 28 gauge Misc Generic drug: lancets Test blood sugar four times daily (before each meal and at bedtime). Indications: type 2 di abetes mellitus magnesium oxide 250 mg elemental Tab Take 2 tablets by mouth two times daily. STOP taking these medications calcium carbonate 500 mg elemental (1,250 mg total salt) Tab chlorhexidine 0.12 % Mwsh Commonly known as: PERIDEX Cholecalciferol (Vitamin D3) 2,000 unit Tab DAILY-JORDI Tab Generic drug: multivitamin HumuLIN N NPH Insulin KwikPen 100 unit/mL (3 mL) Inpn Generic drug: insulin NPH insulin lispro (Human) 100 unit/mL Inpn Commonly known as: HUMALOG PEN Miscellaneous Medical Supply Misc Commonly known as: Miscellaneous Medical Supply mycophenolate 250 mg Cap Commonly known as: CELLCEPT omeprazole 20 mg Cpdr Commonly known as: PRILOSEC predniSONE 5 mg Tab Commonly known as: DELTASONE Allergies: Allergies Allergen Reactions Doxycycline Hives and Rash Code Status: Full POLST completed: no Additional Instructions: Diet Instructions Diet Type: Regular diet- There are no restrictions to your diet. You may eat or drink wha tever you prefer, though healthy food choices are recommended. - Activity Instructions None Additional Instructions At discharge to home: Stop previous subcutaneous insulin at home (NPH 17 units qAM, NPH 7 units qHS, Lispro 5 units with breakfast, Lispro 10 units with lunch, Lispro 12 units with dinner) Start Glimepiride 1mg qAM (every morning). Check your blood glucose every morning before eating and every night before bed. If your AM CBG (morning blood sugar) is > 140 mg/dL or P M CBG (evening blood sugar) >180 mg/dL increase your dose of Glimepiride to 2mg qAM (every m orning) and contact your PCP Start Glargine 10 units qHS (every evening) and adjust dose based on your morning CBG us ing Glargine Scale Your target morning blood sugar is 80-130. To reach this target you should change your insulin dose every three days. You will probabl y need to adjust several times at home If you morning glucose level is higher than this you should increase your insulin dose. If your morning blood sugar level is lower than this you should decrease your dose. Use the f ollowing chart to help adjust your glargine insulin dose: Average Morning blood sugar for 3 days Change in glargine insulin dose Over 180 Increase by 5 units 151-180 Increase by 3 units 131-150 Increase by 1 unit 80-130 No change in insu michaela dose 60-79 Decrease insuli n by 2 units Less 60 Decrease insulin by 4 units Follow-up with your primary care doctor within 1 week for further glycemic management Call your doctor with a blood sugar <70 or >180. If you have symptoms of hypoglycemia (sweating, fast heart rate, lightheadedness, hunger , fatigue, nausea, confusion, anxiety, combativeness) check your blood sugar. If it is <70, drink juice with sugar and check again in 30 minutes. Follow Up: Future Appointments Provider Department Dept Phone Center 10/29/2019 10:45 AM Mary Hinson [facility] at [place] [phone] Rehabilita 11/02/2019 4:10 PM Tyson Bellamy Hematology/Medical Oncology at [facility] ing Arrive at: 10th Floor Hematology/Medical Oncology [phone] HemOn 11/03/2019 10:20 AM Ltx Md 3 Liver Transplant at [facility] [phone] Liver [facility] 11/05/2019 3:30 PM Mary Hinson [facility] at [phone] [facility] 11/09/2019 10:00 AM Fast Track Pattern Changer And Repairer/Medical Oncology at [facility] [phone] [facility] 11/10/2019 3:30 PM Angélica Chao Nephrology & Hypertension at [facility] [phone] NHT 11/11/2019 2:00 PM Mary Hinson [facility] Services at [address] Re[facility]ati 11/16/2019 9:15 AM Mary Hinson [facility] Services at [address] [facility]ati 11/17/2019 11:00 AM Vimal Crowe Liver Transplant at [facility] 2nd Floor [phone] GASTROENT ERO 11/23/2019 9:45 AM Cecille Yoder [facility] Physical Therapy Services at [phone] Rehabilita 02/16/2020 11:20 AM Dekey Y Andreleonilaa Liver Transplant at [facility] 2nd Floor [phone] GASTROENT ERO 08/16/2020 11:00 AM Dejoi Y Andreleonilaa Liver Transplant at [facility] 2nd Floor [phone] GASTROEN TERO Nieves Small MD PGY-1 General Surgery Pager #[phone] Associated attestation - Franny Bazan MD - 11/02/2019 8:59 AM PSTTransplant/ Hepatobilia ry Staff Note I saw and evaluated the patient. I agree with the findings and the plan of care as documen jeannette in Dr. Small's note. Post OLT, doing well, placement established. Continue immunosuppres arjun Fk506, AZA and pred. FRANNY BAAZN MD retail representative Chief, Abdominal Organ Transplantation - Hepatobiliary Surgery [address] [place] [phone] documented in this encounter Discharge Instructions Discharge Instr - Activity Nieves Small MD - 10/26/2019 10:37 AM PSTNone Discharge Instr - Diet Nieves Small MD - 10/26/2019 10:38 AM PSTDiet Type: Regular diet - There are no restrictions to your diet. You may eat or drink whatever you prefer, though healthy food choices are recommended. Discharge Instr - Diagnoses Nieves Small MD - 10/26/2019 10:37 AM PSTPrincipal Final Di agnosis: Failure to Thrive KAR S/p OLTx Depressed Mood SVT A-Fib Discharge Instr - Procedures Nieves Small MD - 10/26/2019 10:37 AM PSTNone Electronical ly signed by Nieves Small MD at 10/26/2019 10:37 AM PST Discharge Instr - Hospital Course Nieves Small MD - 10/26/2019 10:37 AM PSTHospital Cou rse By Problem: Donell Duran is a 54 y/o male with PMH of alcohol abuse, SVT, renal failure s/p OLTx on 2018 who was readmitted on 10/12 for KAR and failure to thrive and depressed mood. During this admission, Psychiatry was consulted and Mirtazapine was restarted. His KAR and protein calorie malnutrition resolved over the course of this hospitalization, and he ultima tely was able to meet his caloric intake goals with support from our social work, shell core and molding supervisor, and nursing staff. Initially, physical therapy worked with him and felt that he should go t o a SNF, however we were unable to find placement and the patient improve greatly throughout his admission. Additionally, the patient intermittently had runs of atrial tachycardia though he was asymp tomatic. Cardiology was consulted, however ultimately no changes were made to his home regim en during this hospitalization. On 10/26 the patient was hemodynamically stable, ambulating independently, voiding spontaneou sly, passing flatus, and tolerating enteral nutrition. The attending surgeon deemed him appr opriate for discharge and was discharged in good condition. Appropriate glycemic and thrombo tic prophylaxis was maintained the entire time. Appropriate discharge education was done. Th e patient was given instructions to follow up in clinic in as scheduled.Electronically zeinab d by Nieves Small MD at 10/26/2019 10:37 AM PST Additional Instructions Nieves Small MD - 10/26/2019 10:56 AM PSTAt discharge to home: Stop previous subcutaneous insulin at home (NPH 17 units qAM, NPH 7 units qHS, Lispro 5 uni ts with breakfast, Lispro 10 units with lunch, Lispro 12 units with dinner) Start Glimepiride 1mg qAM (every morning). Check your blood glucose every morning before ea ting and every night before bed. If your AM CBG (morning blood sugar) is > 140 mg/dL or PM C BG (evening blood sugar) >180 mg/dL increase your dose of Glimepiride to 2mg qAM (every morn ing) and contact your PCP Start Glargine 10 units qHS (every evening) and adjust dose based on your morning CBG using Glargine Scale Your target morning blood sugar is 80-130. To reach this target you should change your insulin dose every three days. You will probabl y need to adjust several times at home If you morning glucose level is higher than this you should increase your insulin dose. If your morning blood sugar level is lower than this you should decrease your dose. Use the f ollowing chart to help adjust your glargine insulin dose: Average Morning blood sugar for 3 days Change in glargine insulin dose Over 180 Increase by 5 units 151-180 Increase by 3 units 131-150 Increase by 1 unit 80-130 No change in insu michaela dose 60-79 Decrease insuli n by 2 units Less 60 Decrease insulin by 4 units Follow-up with your primary care doctor within 1 week for further glycemic management Call your doctor with a blood sugar <70 or >180. If you have symptoms of hypoglycemia (sweating, fast heart rate, lightheadedness, hunger, f atigue, nausea, confusion, anxiety, combativeness) check your blood sugar. If it is <70, dri nk juice with sugar and check again in 30 minutes. documented in this encounter Medications at Time [...] + + +---------+ + + | Insulin Mesilla | Use as directed for | 150 [...] documented as of this encounter Progress Notes Nieves Small MD - 10/26/2019 10:23 AM PSTFormatting of this note might be different fro m the original. DEPARTMENT OF SURGERY Transplant Surgery Admission Date: 10/12/2019 ( LOS: 1 day ) Attending Provider: Coleman Weeks Interval History and Events: - NAEO - Converted to sinus at 5p yest, did not get 25mg metop in setting of soft SBPs to 100's - UOP 875 + 1 unmeasured - Son coming up today to help transition to home - Walking with PT today - WBC 1.95 from 2.38 yesterday Last Vitals: BP 135/84 (BP Location: Right upper arm, Patient Position: Lying on back;Sitti ng) | Pulse 133 | Temp 36.5 C (97.7 F) (Oral) | Resp 16 | Ht 1.803 m (5' 11") | Wt 81.1 kg (178 lb 12.7 oz) | SpO2 100% | BMI 24.94 kg/m | BSA 2.02 m 24 Hour Vital Min/Max: Systolic (24hrs), Av , Min:97 , Max:135 Diastolic (24hrs), Av, Min:52, Max:84 Pulse Min: 64 Max: 72 Temp Min: 36.5 C (97.7 F) Max: 36.8 C (98.2 F) Resp Min: 18 Max: 18 SpO2 Min: 96 % Max: 99 % Intake/Output 10/24 700 - 10/25 0710/25 - 10/26 0710/26 - 10/27 0700 P.O. 840 650 240 I.V. 15 5 10 Total Intake 855 655 250 Urine (mL/kg/hr) 825 (0.4) 875 (0.4) 325 (1.2) Other 0 Total Output(mL/kg) 825 (10.3) 875 (10.8) 325 (4) Net +30 -220 -75 Urine 1 x 1 x Stool 1 x Gen nad, alert, comfortable, conversant this AM Resp unlabored on RA Well-perfused Abd soft, NDNT Data CBC with diff last 72 hours (or 3 results) Recent Labs 10/19/19 0643 10/20/19 0602 WBC 3.26* 3.24* HB 9.4* 9.6* HCT 28.2* 30.2* PLT 64* 64* Chemistries: Last 72 Hours (or 3 results) - Refreshable Recent Labs 10/24/19 1304 10/25/19 2200 10/26/19 0547 10/26/19 0731 NA 141 -- -- 139 -- K 4.5 -- -- 4.5 -- CL 108 -- -- 107 -- BICARB 31 -- -- 30 -- BUN 43* -- -- 42* -- EGFRAFRICAN 39* -- -- 39* -- CR 2.16* -- -- 2.16* -- GLU 137* < > 168* 112* 96 CA 9.1 -- -- 9.2 -- MG -- -- -- 1.6 -- PO4 -- -- -- 5.0* -- < > = values in this interval not displayed. 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 Uptrending Cr, CTM. Able to meet caloric intake needs, will dc to home tomorrow #Leukopenia - Will discuss titration of cellcept today, and timing of discharge pending this issue #Tachycardia - biweekly labs - Improved, will continue on home metop, amiodarone #FTT - potassium-restricted diet - calorie counts- able to meet caloric requirements po - TID supplements #depression - continue mirtazapine 30 mg - SW consulted #hyperkalemia #mild KAR - potassium-restricted diet - kayexelate three times weekly - bactrim stopped - Florinef - CTM renal function- biweekly labs #s/p OLTx - ASA - omeprazole - tacro, pred, aza - atovaquone, valcyte, fluc #DM - Basal/bolus regimen #DVT ppx - lovenox, SCDs #dispo - Likely to home today vs tomorrow Nieves Small MD PGY-1 General Surgery Pager #[phone] Associated attestation - Franny Bazan MD - 11/02/2019 8:54 AM PSTTransplant/ Hepatobilia ry Staff Note I saw and evaluated the patient. I agree with the findings and the plan of care as documeflo machado in Dr. Small's note. s/p OLTx - ASA - omeprazole - immunosuppression tacro, pred, aza - atovaquone, valcyte, fluc Awaiting placement. FRANNY BAZAN MD retail representative Chief, Abdominal Organ Transplantation - Hepatobiliary Surgery [address] [phone] Liv Stephenson LCSW - 10/26/2019 9:00 AM PSTPost- Transplant Social Work Inpatient Visit : Purpose of Visit: Dish Up Person met with pt at bedside due to inpt admission post transplant. Pt s Coping/Adjustment to Transplant Recovery: Pt shares he is hopeful today he can return to his rental. He reports he spoke with his [facility] him for the remainder of the week. Dish Up Person gave pt medical transportation number to schedule rides to his appointments. Pt und erstands he will need to schedule rides 2 days in advance. Pt reports he's thinking of ju baum back to [place] after his rental is up. He states he has more family in this area and at least could stay here for a period of time. Pt's mood continues to improve and pt reports he's been working on his physical therapy. From discharge pt would rather team talk with him or his sister Doreen ([phone]). His son Evaristo will be with him this week ([phone]). Additional Concerns/Needs: Pt appears to be making progress, reaching out to family members. He does report he is not talking with his mother at this time and is "trying to get over it". When asked what happene d pt reported "a lot of little things leading up to asking her to leave". Plan: HOME HEALTH PHYSICAL THERAPIST will continue to be available to provide support and assistance as needed. Liv Stephenson LCS[place] [phone] Nieves Avina MD - 10/25/2019 6:28 AM PST DEPARTMENT OF SURGERY Transplant Surgery Admission Date: 10/12/2019 ( LOS: 1 day ) Attending Provider: Coleman Weeks Interval History and Events: - NAEO - Sustaining tachycardia to the 110's-120's per tele - UOP 825 + 2 unmeasured - No labs today (biweekly only now) - SWS saw patient yesterday- patient plans on returning to rental housing and may have some family that can come to support (son), but unsure at this time - Endo recs updated for dishcarge Glimepiride 1mg qAM and Glargine 10u qHS Last Vitals: BP 104/77 (BP Location: Right upper arm, Patient Position: Lying on back) | P ulse 120 Comment: per teletype telegrapher | Temp 36.5 C (97.7 F) (Oral) | Resp 16 | Ht 1.803 m ( 5' 11") | Wt 79.9 kg (176 lb 1.6 oz) | SpO2 100% | BMI 24.56 kg/m | BSA 2 m 24 Hour Vital Min/Max: Systolic (24hrs), Av , Min:104 , Max:132 Diastolic (24hrs), Av, Min:73, Max:94 Pulse Min: 64 Max: 72 Temp Min: 36.5 C (97.7 F) Max: 36.8 C (98.2 F) Resp Min: 18 Max: 18 SpO2 Min: 96 % Max: 99 % Intake/Output 10/23 07 - 10/24 0700 10/24 07 - 10/25 0700 P.O. 1290 840 I.V. 10 15 Total Intake 1300 855 Urine (mL/kg/hr) 905 (0.5) 825 (0.4) Total Output(mL/kg) 905 (11.3) 825 (10.3) Net +395 +30 Urine 1 x Gen nad, alert, comfortable, conversant this AM Resp unlabored on RA Well-perfused Abd soft, NDNT Data CBC with diff last 72 hours (or 3 results) Recent Labs 10/19/19 0643 10/20/19 0602 WBC 3.26* 3.24* HB 9.4* 9.6* HCT 28.2* 30.2* PLT 64* 64* Chemistries: Last 72 Hours (or 3 results) - Refreshable Recent Labs 10/24/19 1304 10/24/19 1339 10/24/19 2120 10/25/19 0020 NA 141 -- -- -- K 4.5 -- -- -- CL 108 -- -- -- BICARB 31 -- -- -- BUN 43* -- -- -- EGFRAFRICAN 39* -- -- -- CR 2.16* -- -- -- GLU 137* 150* 168* 199* CA 9.1 -- -- -- Assessment and Plan: 54YOM h/o ESLD 2/ EtOH s/p OLTx 08/16 with a course c/b SVT now on amio/metop and HRS/KAR previously on HD now with chronic insufficiency but off HD, re-admitted for failure to thriv e, depression and hyperkalemia. Uptrending Cr, CTM. Able to meet caloric intake needs, will dc to home tomorrow #Tachycardia - biweekly labs - Will tb with cardiology today given tachycardia #FTT - potassium-restricted diet - calorie counts- able to meet caloric requirements po - TID supplements #depression - continue mirtazapine 30 mg - SW consulted #hyperkalemia #mild KAR - potassium-restricted diet - kayexelate three times weekly - bactrim stopped - Florinef - CTM renal function- biweekly labs #s/p OLTx - ASA - omeprazole - tacro, pred, aza - atovaquone, valcyte, fluc #SVT - amiodarone - metoprolol - will discuss with cards #DM - Basal/bolus regimen #DVT ppx - shiloh, SAMYs #dispo - struggling to care for himself at home - PT recommends SNF- CM working on placement, likely to home on Saturday Nieves Small MD PGY-1 General Surgery Pager #[phone] Associated attestation - Franny Bazan MD - 11/02/2019 9:03 AM PSTSlon I saw and evaluated the patient. I agree with the findings and the plan of care as dominick machado in Dr. Small's note. #s/p OLTx - ASA - omeprazole - tacro, pred, aza - atovaquone, valcyte, fluc #SVT - amiodarone - metoprolol - will discuss with cardiology service #DVT ppx - [place], SCDs #dispo - struggling to care for himself at home - PT recommends SNF- CM working on placement, likely to home on Saturday FRANNY BAZAN MD retail representative Chief, Abdominal Organ Transplantation - Hepatobiliary Surgery [id number] [place] [phone] Nieves Small MD - 10/24/2019 8:09 AM PSTFormatting of this note might be different fro m the original. DEPARTMENT OF SURGERY Transplant Surgery Admission Date: 10/12/2019 ( LOS: 1 day ) Attending Provider: Coleman Weeks Interval History and Events: - NAEO - Tachycardic to 120's last night briefly, resolved spontaneously, asymptomatic - UOP 905 - No labs today (biweekly only now) - SWS saw patient yesterday- patient plans on returning to rental housing and may have some family that can come to support (son), but unsure at this time - Endo recs for dishcarge Glimepiride 1mg qAM. Last Vitals: BP 131/85 (BP Location: Right upper arm, Patient Position: Lying on back) | P ulse 127 | Temp 36.6 C (97.9 F) (Oral) | Resp 18 | Ht 1.803 m (5' 11") | Wt 79.9 kg (176 lb 1.6 oz) | SpO2 100% | BMI 24.56 kg/m | BSA 2 m 24 Hour Vital Min/Max: Systolic (24hrs), Av , Min:108 , Max:133 Diastolic (24hrs), Av, Min:62, Max:85 Pulse Min: 64 Max: 72 Temp Min: 36.5 C (97.7 F) Max: 36.8 C (98.2 F) Resp Min: 18 Max: 18 SpO2 Min: 96 % Max: 99 % Intake/Output 10/22 0701 - / 0700 / 07 - 10/24 0700 / 07 - 10/25 0700 P.O. 1417 1290 I.V. 10 10 Total Intake 1427 1300 Urine (mL/kg/hr) 240 (0.1) 905 (0.5) Emesis Other Total Output(mL/kg) 240 (3) 905 (11.3) Net +1187 +395 Urine 2 x Stool 1 x Gen nad, alert, comfortable, conversant this AM Resp unlabored on RA Well-perfused Abd soft, NDNT Data CBC with diff last 72 hours (or 3 results) Recent Labs 10/19/19 0643 10/20/19 0602 WBC 3.26* 3.24* HB 9.4* 9.6* HCT 28.2* 30.2* PLT 64* 64* Chemistries: Last 72 Hours (or 3 results) - Refreshable Recent Labs 10/21/19 0940 10/22/19 0544 10/23/19 2233 10/24/19 0103 10/24/19 0755 NA 141 -- 142 -- -- -- -- K 4.6 -- 4.8 -- -- -- -- CL 108 -- 108 -- -- -- -- BICARB 29 -- 30 -- -- -- -- BUN 47* -- 46* -- -- -- -- EGFRAFRICAN 44* -- 39* -- -- -- -- CR 1.95* -- 2.13* -- -- -- -- GLU 187* < > 124* < > 150* 129* 149* CA 9.7 -- 9.3 -- -- -- -- MG 1.6 -- 1.7 -- -- -- -- PO4 4.2 -- 4.8* -- -- -- -- < > = values in this interval not displayed. 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 Uptrending Cr, CTM. Able to meet caloric intake needs, worki ng on SNF placement. Briefly tachycardic overnight, per prior cardiology recs CTM. #Tachycardia - biweekly labs - cardiology signed off #FTT - potassium-restricted diet - calorie counts- able to meet caloric requirements po - TID supplements #depression - continue mirtazapine 30 mg - SW consult - will tb today to determine dc plan should SNF not be an option #hyperkalemia #mild KAR - potassium-restricted diet - kayexelate three times weekly - bactrim stopped - Florinef - CTM renal function- biweekly labs #s/p OLTx - ASA - omeprazole - tacro, pred, aza - atovaquone, valcyte, fluc #SVT - amiodarone - metoprolol #DM - Basal/bolus regimen #DVT ppx - lovenox, SCDs #dispo - struggling to care for himself at home - PT recommends SNF- CM working on placement, likely to home on Saturday Nieves Small MD PGY-1 General Surgery Pager #[phone] Associated attestation - Franny Bazan MD - 11/02/2019 9:04 AM PSTTransplant/ Hepatobilia ry Staff Note I saw and evaluated the patient. I agree with the findings and the plan of care as dominick mahcado in Dr. Small's note. s/p OLTx - ASA - omeprazole - tacro, pred, aza - atovaquone, valcyte, fluc SVT - amiodarone - metoprolol DVT ppx - lovenox, SCDs dispo - struggling to care for himself at home - PT recommends SNF- CM working on placement, likely to home on Saturday FRANNY BAZAN MD retail representative Chief, Abdominal Organ Transplantation - Hepatobiliary Surgery [address] [place] [phone] Liv Stephenson, HOME HEALTH PHYSICAL THERAPIST - 10/23/2019 12:32 PM PSTPost- Transplant Social Work Inpatient Visit : Purpose of Visit: Dish Up Person met with pt at bedside due to inpt admission post transplant. Pt s Coping/Adjustment to Transplant Recovery: Pt was laying in bed. He continues to have improved speech. He states he hasn't walked as m uch as he wanted to today because he had difficulty keeping food down the last few days. Dish Up Person and pt discussed upcoming discharge. Pt reports he plans to return to his rental. He states his son wanted him to call him Saturday which pt plans to do. Pt and designer/writer discusse d having the conversation of his son staying with him for a week or two upon discharge. Pt c onfirms this is his plan. Additional Concerns/Needs: Pt has a place to discharge but remains limited if having any supports who are willing or a ble to stay with him. Plan: HOME HEALTH PHYSICAL THERAPIST will continue to be available to provide support and assistance as needed. Liv Stephenson LCSW Liver Trans[place] [phone] atel, Nieves Gomez MD - 10/23/2019 5:18 AM PST DEPARTMENT OF SURGERY Transplant Surgery Admission Date: 10/12/2019 ( LOS: 1 day ) Attending Provider: Coleman Weeks Interval History and Events: - NAEO - No more emesis - Stool x 1 overnight - UOP 340 + 2 unmeasured - No labs today (biweekly only now) Last Vitals: BP 117/71 (BP Location: Right upper arm, Patient Position: Lying on back) | P ulse 63 | Temp 36.4 C (97.5 F) (Oral) | Resp 16 | Ht 1.803 m (5' 11") | Wt 78.6 kg ( 173 lb 4.8 oz) | SpO2 99% | BMI 24.17 kg/m | BSA 1.98 m 24 Hour Vital Min/Max: Systolic (24hrs), Av , Min:113 , Max:130 Diastolic (24hrs), Av, Min:59, Max:72 Pulse Min: 64 Max: 72 Temp Min: 36.5 C (97.7 F) Max: 36.8 C (98.2 F) Resp Min: 18 Max: 18 SpO2 Min: 96 % Max: 99 % Intake/Output 10/21 07 - 10/22 0700 10/22 07 - 10/23 0700 P.O. 1200 1417 I.V. 10 10 Total Intake 1210 1427 Urine (mL/kg/hr) 1000 (0.5) 240 (0.1) Emesis 0 Other 0 Total Output(mL/kg) 1000 (12.7) 240 (3.1) Net +210 +1187 Urine 2 x Stool 2 x 1 x Emesis 1 x Gen nad, alert, comfortable, conversant this AM Resp unlabored on RA Well-perfused Abd soft, NDNT Data CBC with diff last 72 hours (or 3 results) Recent Labs 10/19/19 0643 10/20/19 0602 WBC 3.26* 3.24* HB 9.4* 9.6* HCT 28.2* 30.2* PLT 64* 64* Chemistries: Last 72 Hours (or 3 results) - Refreshable Recent Labs 10/20/19 0602 10/21/19 0940 10/22/19 0544 10/22/19 1335 10/22/19 2040 10/22/19 2348 NA 141 -- 141 -- 142 -- -- -- -- K 5.0 -- 4.6 -- 4.8 -- -- -- -- CL 107 -- 108 -- 108 -- -- -- -- BICARB 27 -- 29 -- 30 -- -- -- -- BUN 54* -- 47* -- 46* -- -- -- -- EGFRAFRICAN 36* -- 44* -- 39* -- -- -- -- CR 2.29* -- 1.95* -- 2.13* -- -- -- -- GLU 116* < > 187* < > 124* < > 140* 187* 223* CA 9.6 -- 9.7 -- 9.3 -- -- -- -- MG 1.8 -- 1.6 -- 1.7 -- -- -- -- PO4 5.4* -- 4.2 -- 4.8* -- -- -- -- < > = values in this interval not displayed. 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 Uptrending Cr, CTM. Able to meet caloric intake needs, worki ng on SNF placement. #Tachycardia - biweekly labs - cardiology signed off #FTT - potassium-restricted diet - calorie counts- able to meet caloric requirements po - TID supplements #depression - continue mirtazapine 30 mg - consult - will tb today to determine dc plan should SNF not be an option #hyperkalemia #mild KAR - potassium-restricted diet - kayexelate three times weekly - bactrim stopped - Florinef - CTM renal function- biweekly labs #s/p OLTx - ASA - omeprazole - tacro, pred, aza - atovaquone, valcyte, fluc #SVT - amiodarone - metoprolol #DM - Basal/bolus regimen #DVT ppx - lovenox, SCDs #dispo - struggling to care for himself at home - PT recommends SNF- CM working on placement, no options yet Nieves Small MD PGY-1 General Surgery Pager #[phone] Associated attestation - Franny Bazan MD - 11/02/2019 9:05 AM PSTTransplant/ Hepatobilia ry Staff Note I saw and evaluated the patient. I agree with the findings and the plan of care as dominick machado in Dr. Small's note. s/p OLTx - ASA - omeprazole - tacro, pred, aza - atovaquone, valcyte, fluc SVT - amiodarone - metoprolol DVT ppx - lovenox, SCDs dispo - struggling to care for himself at home - PT recommends SNF- CM working on placement, likely to home on Saturday FRANNY BAZAN MD retail representative Chief, Abdominal Organ Transplantation - Hepatobiliary Surgery [address] [phone] Nieves Small MD - 10/22/2019 5:52 AM PSTFormatting of this note might be different fro m the original. DEPARTMENT OF SURGERY Transplant Surgery Admission Date: 10/12/2019 ( LOS: 1 day ) Attending Provider: Coleman Weeks Interval History and Events: - NAEO - Emesis x 1 overnight- says he was nauseous after eating, resolved with antiemetics, and w ould like to eat breakfast this AM. - Stool x 4 overnight - Cardiology saw patient yesterday for tachycardia, rec continue on current home regimen an d to [facility] Last Vitals: BP 114/72 (BP Location: Right upper arm, Patient Position: Lying on back) | P ulse 70 | Temp 36.6 C (97.9 F) (Oral) | Resp 20 | Ht 1.803 m (5' 11") | Wt 80.7 kg ( 177 lb 14.6 oz) | SpO2 98% | BMI 24.81 kg/m | BSA 2.01 m 24 Hour Vital Min/Max: Systolic (24hrs), Av , Min:101 , Max:128 Diastolic (24hrs), Av, Min:71, Max:83 Pulse Min: 64 Max: 72 Temp Min: 36.5 C (97.7 F) Max: 36.8 C (98.2 F) Resp Min: 18 Max: 18 SpO2 Min: 96 % Max: 99 % Intake/Output 10/20 07 - 10/21 0700 10/21 07 - 10/22 0700 P.O. 1020 1200 I.V. 5 10 Total Intake 1025 1210 Urine (mL/kg/hr) 1400 (0.7) 1000 (0.5) Emesis 0 Other 0 Total Output(mL/kg) 1400 (17.3) 1000 (12.4) Net -375 +210 Urine 1 x Stool 2 x Emesis 1 x Gen nad, alert, comfortable, conversant this AM Resp unlabored on RA Well-perfused Abd soft, NDNT Data CBC with diff last 72 hours (or 3 results) Recent Labs 10/19/19 0643 10/20/19 0602 WBC 3.26* 3.24* HB 9.4* 9.6* HCT 28.2* 30.2* PLT 64* 64* Chemistries: Last 72 Hours (or 3 results) - Refreshable Recent Labs 10/19/19 0643 10/20/19 0602 10/21/19 0940 10/21/19 1442 10/21/19 1819 10/21/19 2040 NA 135* -- 141 -- 141 -- -- -- K 4.9 -- 5.0 -- 4.6 -- -- -- CL 104 -- 107 -- 108 -- -- -- BICARB 26 -- 27 -- 29 -- -- -- BUN 54* -- 54* -- 47* -- -- -- EGFRAFRICAN 34* -- 36* -- 44* -- -- -- CR 2.45* -- 2.29* -- 1.95* -- -- -- GLU 201* < > 116* < > 187* 141* 133* 145* CA 9.3 -- 9.6 -- 9.7 -- -- -- MG 2.0 -- 1.8 -- 1.6 -- -- -- PO4 5.1* -- 5.4* -- 4.2 -- -- -- < > = values in this interval not displayed. Assessment and Plan: 54YOM h/o ESLD 2/ EtOH s/p OLTx 08/16 with a course c/b SVT now on amio/metop and HRS/KAR previously on HD now with chronic insufficiency but off HD, re-admitted for failure to thriv e, depression and hyperkalemia. Uptrending Cr, CTM. Able to meet caloric intake needs, worki ng on SNF placement.Tachycardia improved this AM. #Tachycardia Sinus on EKG today. - Dc Telemetry - Will hold off on diuresis for now - biweekly labs #FTT - potassium-restricted diet - calorie counts- able to meet caloric requirements po - TID supplements #depression - continue mirtazapine, increase to 30 mg - SW consult - pending recs #hyperkalemia #mild KAR - potassium-restricted diet - kayexelate three times weekly - bactrim stopped - Florinef - CTM renal function- biweekly labs #s/p OLTx - ASA - omeprazole - tacro, pred, aza - atovaquone, valcyte, fluc #SVT - amiodarone - metoprolol #DM - NPH, mealtime, SSI - Glycemic team to follow, appreciate recs #DVT ppx - lovenox, SCDs #dispo - struggling to care for himself at home - PT recommends SNF- CM working on placement, pending Nieves Small MD PGY-1 General Surgery Pager #[phone] Associated attestation - Franny Bazan MD - 11/02/2019 9:05 AM PSTTransplant/ Hepatobilia ry Staff Note I saw and evaluated the patient. I agree with the findings and the plan of care as lioneln jeannette in Dr. Small's note. s/p OLTx - ASA - omeprazole - tacro, pred, aza - atovaquone, valcyte, fluc SVT - amiodarone - metoprolol DVT ppx - lovenox, SCDs dispo - struggling to care for himself at home - PT recommends SNF- CM working on placement, likely to home on Saturday FRANNY BAZAN MD retail representative Chief, Abdominal Organ Transplantation - Hepatobiliary Surgery [facility] [address] [phone] Erich Lehman MD - 10/21/2019 10:06 AM PST DEPARTMENT OF SURGERY Transplant Surgery Admission Date: 10/12/2019 ( LOS: 1 day ) Attending Provider: Coleman Weeks Interval History and Events: - tachycardic overnight up to 120, already on amiodarone and metoprolol - EKG showed sinus tachy with right BBB, similar to prior - electrolytes ok, K down to 4.6 from 5 - spoke with cardiology, they agreed to evaluate Last Vitals: BP 128/82 (BP Location: Right upper arm, Patient Position: Lying on back) | P ulse 124 | Temp 36.9 C (98.4 F) (Oral) | Resp 16 | Ht 1.803 m (5' 11") | Wt 80.7 kg (177 lb 14.6 oz) | SpO2 99% | BMI 24.81 kg/m | BSA 2.01 m 24 Hour Vital Min/Max: Systolic (24hrs), Av , Min:123 , Max:135 Diastolic (24hrs), Av, Min:71, Max:87 Pulse Min: 64 Max: 72 Temp Min: 36.5 C (97.7 F) Max: 36.8 C (98.2 F) Resp Min: 18 Max: 18 SpO2 Min: 96 % Max: 99 % Intake/Output 10/19 701 - 10/20 0700 10/20 07 - 10/21 0700 10/21 07 - 10/22 0700 P.O. 1507 1020 600 I.V. 15 5 IV Piggyback 500 Total Intake 2021 1025 600 Urine (mL/kg/hr) 950 (0.5) 1400 (0.7) Total Output(mL/kg) 950 (11.8) 1400 (17.3) Net +1072 -375 +600 Urine 1 x Gen nad, alert, comfortable, conversant this AM Resp unlabored on RA Well-perfused Abd soft, NDNT Data CBC with diff last 72 hours (or 3 results) Recent Labs 10/19/1964210/20/19601 WBC 3.26* 3.24* HB 9.4* 9.6* HCT 28.2* 30.2* PLT 64* 64* Chemistries: Last 72 Hours (or 3 results) - Refreshable Recent Labs 10/19/1943 10/20/1902 10/21/19 0033 10/21/19 0802 10/21/19 0940 NA 135* -- 141 -- -- -- 141 K 4.9 -- 5.0 -- -- -- 4.6 CL 104 -- 107 -- -- -- 108 BICARB 26 -- 27 -- -- -- 29 BUN 54* -- 54* -- -- -- 47* EGFRAFRICAN 34* -- 36* -- -- -- 44* CR 2.45* -- 2.29* -- -- -- 1.95* GLU 201* < > 116* < > 117* 106* 187* CA 9.3 -- 9.6 -- -- -- 9.7 MG 2.0 -- 1.8 -- -- -- 1.6 PO4 5.1* -- 5.4* -- -- -- 4.2 < > = values in this interval not displayed. 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 Uptrending Cr, CTM. Able to meet caloric intake needs, [place]. Now has tachycardia, EKG shows sinus rhythm. Will have cardiology take a look. #Tachycardia Sinus on EKG today. - Telemetry - Cardiology to evaluate and leave formal recommendations - repeat CBC #FTT - potassium-restricted diet - calorie counts- able to meet caloric requirements po - TID supplements #depression - continue mirtazapine, increase to 30 mg - SW consult - pending recs #hyperkalemia #mild KAR - potassium-restricted diet - kayexelate three times weekly - bactrim stopped - Florinef - CTM renal function #s/p OLTx - ASA - omeprazole - tacro, pred, aza - atovaquone, valcyte, fluc #SVT - amiodarone - metoprolol #DM - NPH, mealtime, SSI - Glycemic team to follow, appreciate recs #DVT ppx - lovenox, SCDs #dispo - struggling to care for himself at home - PT recommends SNF- CM working on placement, pending ERICH LEHMAN MD Resident Physician, PGY3 Urologic Surgery [facility] Naylor wlencho, Liv Chang, [facility] - 10/20/2019 2:11 PM PSTPost- Transplant Social Work Inpatient Visit: Purpose of Visit: Dish Up Person met with pt at bedside due to inpt admission post transplant. Pt s Coping/Adjustment to Transplant Recovery: Pt appears brighter today than past days. He reports he's been up walking and it appears to have positively affected his mood. He was encouraged to continue walking around to build hi s strength. Team talked with pt today about the potential he won't need rehab given some of his improvement which lead to more concern over supports if he should return to his rental. Dish Up Person spoke with pt's mother this morning. Lorelei reports she can't return due to her husb ands health, she also doesn't feel her support is what pt needs at this time and didn't feel she was helpful. Dish Up Person discussed the need for support for 3 months and went over support people. She reports her daughter Doreen who was supposed to be a support has to stay home due to her son's own personal issues and doesn't plan to visit pt soon. Lorelei also reports that her sister lives in [place] but is taking care of her , in her 80s and not a significant support for pt. When presented with all this information, pt reports he believes he can manage his medicati ons and is feeling better from a mental health perspective. He reports there is food in the house and he's comfortable cooking. Pt does have medicaid and eligible for medical transport to and from appointments. In addition pt reports his son Louis is in construction and may not be working due to the w arslanher. While Louis has a son, he drives and might have the flexibility to stay with pt for a period of time. Pt has texted Louis to call him when he has program instructor. Pt also reports he has an old friend who lives in [place], his is retired and he might be a source of suppor t. Pt called him to check in. Additional Concerns/Needs: Pt appears to be in a better place from a mental health perspective. Now that pt knows he w ill return to his rental he has started to make phone calls which is progress. Plan: HOME HEALTH PHYSICAL THERAPIST will continue to be available to provide support and assistance as needed. Liv Stephenson LCSW Liver [place] [phone] atel, Neives Gomez MD - 10/20/2019 12:15 PM PST DEPARTMENT OF SURGERY Transplant Surgery Admission Date: 10/12/2019 ( LOS: 1 day ) Attending Provider: Coleman Weeks Interval History and Events: - No acute events overnight - K 5 this AM - Still working on placement- declined from SNF's so far. - Sister will not be coming into town anymore. He has some friends that might be able to he lp him. - Continues to meet caloric intake requirements - Cr 2.29 (2.45) after 500 bolus yesterday. FeUrea was c/w pre-renal Last Vitals: BP 135/76 (BP Location: Right upper arm, Patient Position: Lying on back) | P ulse 68 | Temp 36.7 C (98.1 F) (Oral) | Resp 18 | Ht 1.803 m (5' 11") | Wt 80.6 kg ( 177 lb 11.1 oz) | SpO2 100% | BMI 24.78 kg/m | BSA 2.01 m 24 Hour Vital Min/Max: Systolic (24hrs), Av , Min:128 , Max:139 Diastolic (24hrs), Av, Min:64, Max:76 Pulse Min: 64 Max: 72 Temp Min: 36.5 C (97.7 F) Max: 36.8 C (98.2 F) Resp Min: 18 Max: 18 SpO2 Min: 96 % Max: 99 % Intake/Output Summary (Last 24 hours) at 10/14/2019 1019 Last data filed at 10/14/2019 0415 Gross per 24 hour Intake 3395 ml Output 700 ml Net 2695 ml Gen nad, alert, comfortable, conversant this AM Resp unlabored on RA Well-perfused Abd soft, NDNT Data CBC with diff last 72 hours (or 3 results) Recent Labs 10/12/19 0850 10/13/19 0513 10/14/19 0451 WBC 5.34 3.97 3.50 HB 11.2* 10.0* 9.3* HCT 34.5* 30.0* 29.0* PLT 101* 85* 71* NEUTROPERC 69.0 -- -- LYMPHPERC 23.2 -- -- MONOPERC 5.2 -- -- BASOPERC 0.7 -- -- EOSPERC 1.7 -- -- Lab Results Component Value Date NA 141 10/20/2019 K 5.0 10/20/2019 CL 107 10/20/2019 BICARB 27 10/20/2019 BUN 54 10/20/2019 CR 2.29 10/20/2019 GLU 122 10/20/2019 CA 9.6 10/20/2019 AST 10 10/20/2019 ALT 18 10/20/2019 AP 51 10/20/2019 TBILI 0.2 10/20/2019 TP 6.2 10/20/2019 ALB 3.6 10/20/2019 DIRBILI 4.2 07/07/2019 ANIONGAP 7 10/20/2019 ANIONALBCOR 8 10/20/2019 Labs: Lab Results Component Value Date MG 1.8 10/20/2019 Lab Results Component Value Date PO4 5.4 10/20/2019 Assessment and Plan: 54YOM h/o ESLD / EtOH s/p OLTx 08/16 with a course c/b SVT now on amio/metop and HRS/KAR previously on HD now with chronic insufficiency but off HD, re-admitted for failure to thriv e, depression and hyperkalemia. Uptrending Cr, CTM. Able to meet caloric intake needs, [place]. Possible that he will be able to dc to home with friend support if he c ontinues to improve his functional status. #FTT - potassium-restricted diet - calorie counts- able to meet caloric requirements po - TID supplements #depression - continue mirtazapine, increase to 30 mg - SW consult - pending recs #hyperkalemia #mild KAR - potassium-restricted diet - kayexelate three times weekly - bactrim stopped - Florinef - CTM renal function #s/p OLTx - ASA - omeprazole - tacro, pred, aza - atovaquone, valcyte, fluc #SVT - amiodarone - metoprolol #DM - NPH, mealtime, SSI - Glycemic team to follow, appreciate recs #DVT ppx - lovenox, SCDs #dispo - struggling to care for himself at home - PT recommends SNF- CM working on placement, pending Nieves Small MD PGY-1 General Surgery Pager #[phone] Associated attestation - Luan Garcia MD - 10/20/2019 8:53 PM PSTClinically more inter active each day Good allograft funciton Renal function improved with IVF yesterday I have personally managed patient immunosuppression tac no change today/stopped prednisone to minimize meds at home/mmf I saw and evaluated the patient. I agree with the findings and the plan of care as dominick machado in the resident s note. LUAN GARCIA MD [facility] [id number] [place] [address] Liv Stephenson LCSW - 10/19/2019 10:16 AM PSTPost- Transplant Social Work Inpatient Visit : Purpose of Visit: Dish Up Person met with pt at bedside due to inpt admission post transplant. Pt s Coping/Adjustment to Transplant Recovery: Pt is speaking slightly more clear today although still difficult to understand at times. P t reports he's found a few apartments in the area that he might check out. Pt was unable to follow through on how he would look at these apartments and continues to struggle to take ac tion calling family/friends to help him. Pt understands he will go to a rehab, designer/writer encour aged pt to try to talk with family and friends and come up with a plan for after Nov 21 when his current rental runs out. Additional Concerns/Needs: It's difficult to motivate pt, he appears to have limited insight into how not having perma nent housing will effect his recovery and care. Plan: HOME HEALTH PHYSICAL THERAPIST will continue to be available to provide support and assistance as needed. Liv Stephenson LCSW [place] [phone] eovanny, Nieves oGmez MD - 10/19/2019 5:06 AM PST DEPARTMENT OF SURGERY Transplant Surgery Admission Date: 10/12/2019 ( LOS: 1 day ) Attending Provider: Coleman Weeks Interval History and Events: - No acute events overnight - K 4.9 this AM - Still working on placement - Continues to meet caloric intake requirements - Cr 2.45 (2.28) Last Vitals: BP 129/74 (BP Location: Right upper arm, Patient Position: Sitting) | Pulse 6 2 | Temp 36.8 C (98.2 F) (Oral) | Resp 14 | Ht 1.803 m (5' 11") | Wt 79.3 kg (174 lb 13.2 oz) | SpO2 98% | BMI 24.38 kg/m | BSA 1.99 m 24 Hour Vital Min/Max: Systolic (24hrs), Av , Min:112 , Max:137 Diastolic (24hrs), Av, Min:62, Max:75 Pulse Min: 64 Max: 72 Temp Min: 36.5 C (97.7 F) Max: 36.8 C (98.2 F) Resp Min: 18 Max: 18 SpO2 Min: 96 % Max: 99 % Intake/Output Summary (Last 24 hours) at 10/14/2019 1019 Last data filed at 10/14/2019 0415 Gross per 24 hour Intake 3395 ml Output 700 ml Net 2695 ml Gen nad, alert, comfortable, conversant this AM Resp unlabored on RA Well-perfused Abd soft, NDNT Data CBC with diff last 72 hours (or 3 results) Recent Labs 10/12/19 0850 10/13/19 0513 10/14/19 0451 WBC 5.34 3.97 3.50 HB 11.2* 10.0* 9.3* HCT 34.5* 30.0* 29.0* PLT 101* 85* 71* NEUTROPERC 69.0 -- -- LYMPHPERC 23.2 -- -- MONOPERC 5.2 -- -- BASOPERC 0.7 -- -- EOSPERC 1.7 -- -- Lab Results Component Value Date NA 138 10/18/2019 K 4.8 10/18/2019 CL 104 10/18/2019 BICARB 29 10/18/2019 BUN 46 10/18/2019 CR 2.28 10/18/2019 GLU 160 10/18/2019 CA 9.8 10/18/2019 AST 11 10/18/2019 ALT 19 10/18/2019 AP 54 10/18/2019 TBILI 0.3 10/18/2019 TP 6.9 10/18/2019 ALB 3.9 10/18/2019 DIRBILI 4.2 07/07/2019 ANIONGAP 5 10/18/2019 ANIONALBCOR 5 10/18/2019 Labs: Lab Results Component Value Date MG 2.1 10/18/2019 Lab Results Component Value Date PO4 5.0 10/18/2019 Assessment and Plan: 54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 Uptrending Cr, CTM. Able to meet caloric intake needs, worki ng on SNF placement #FTT - potassium-restricted diet - calorie counts- able to meet caloric requirements po - TID supplements #depression - continue mirtazapine, psych in agreement ans signed off - consult - pending recs #hyperkalemia #mild KAR - potassium-restricted diet - kayexelate three times weekly - bactrim stopped - Florinef - CTM renal function- send urine studies today today to assess #s/p OLTx - ASA - omeprazole - tacro, pred, aza - atovaquone, valcyte, fluc #SVT - amiodarone - metoprolol #DM - NPH, mealtime, SSI - Glycemic team to follow, appreciate recs #DVT ppx - lovenox, SCDs #dispo - struggling to care for himself at home - PT recommends SNF- CM working on placement, pending Nieves Small MD PGY-1 General Surgery Pager #[phone] Associated attestation - Luan Garcia MD - 10/19/2019 3:29 PM PSTClinically unchanged Increasing po Working on ambulation I have personally managed patient immunosuppression tac decrease today/pred/aza I saw and evaluated the patient. I agree with the findings and the plan of care as dominick machado in the resident s note. LUAN GARCIA MD [facility] [address] [facility] [id number] [place] [address] Nieves Small MD - 10/18/2019 6:49 AM PSTFormatting of this note might be different fro m the original. DEPARTMENT OF SURGERY Transplant Surgery Admission Date: 10/12/2019 ( LOS: 1 day ) Attending Provider: Coleman Weeks Interval History and Events: - No acute events overnight - K 4.8 this AM - Still working on placement - Continues to meet caloric intake requirements - Cr 2.28 (2.05) Last Vitals: BP 125/69 (BP Location: Right upper arm, Patient Position: Lying on back) | P ulse 56 | Temp 36.5 C (97.7 F) (Oral) | Resp 18 | Ht 1.803 m (5' 11") | Wt 79.3 kg ( 174 lb 13.2 oz) | SpO2 100% | BMI 24.38 kg/m | BSA 1.99 m 24 Hour Vital Min/Max: Systolic (24hrs), Av , Min:116 , Max:132 Diastolic (24hrs), Av, Min:67, Max:80 Pulse Min: 64 Max: 72 Temp Min: 36.5 C (97.7 F) Max: 36.8 C (98.2 F) Resp Min: 18 Max: 18 SpO2 Min: 96 % Max: 99 % Intake/Output Summary (Last 24 hours) at 10/14/2019 1019 Last data filed at 10/14/2019 0415 Gross per 24 hour Intake 3395 ml Output 700 ml Net 2695 ml Gen nad, alert, comfortable Resp unlabored on RA Well-perfused Abd soft, NDNT Data CBC with diff last 72 hours (or 3 results) Recent Labs 10/12/19 0850 10/13/19 0513 10/14/19 0451 WBC 5.34 3.97 3.50 HB 11.2* 10.0* 9.3* HCT 34.5* 30.0* 29.0* PLT 101* 85* 71* NEUTROPERC 69.0 -- -- LYMPHPERC 23.2 -- -- MONOPERC 5.2 -- -- BASOPERC 0.7 -- -- EOSPERC 1.7 -- -- Lab Results Component Value Date NA 138 10/18/2019 K 4.8 10/18/2019 CL 104 10/18/2019 BICARB 29 10/18/2019 BUN 46 10/18/2019 CR 2.28 10/18/2019 GLU 153 10/18/2019 CA 9.8 10/18/2019 AST 11 10/18/2019 ALT 19 10/18/2019 AP 54 10/18/2019 TBILI 0.3 10/18/2019 TP 6.9 10/18/2019 ALB 3.9 10/18/2019 DIRBILI 4.2 07/07/2019 ANIONGAP 5 10/18/2019 ANIONALBCOR 5 10/18/2019 Labs: Lab Results Component Value Date MG 2.1 10/18/2019 Lab Results Component Value Date PO4 5.0 10/18/2019 Assessment and Plan: 54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 Jaja to meet caloric intake needs, working on SNF placement #FTT - potassium-restricted diet - calorie counts- able to meet caloric requirements po - TID supplements #depression - continue mirtazapine, psych in agreement ans signed off - consult - pending recs #hyperkalemia #mild KAR - potassium-restricted diet - kayexelate three times weekly - bactrim stopped - Florinef - CTM renal function #s/p OLTx - ASA - omeprazole - tacro, pred, aza - atovaquone, valcyte, fluc #SVT - amiodarone - metoprolol #DM - NPH, mealtime, SSI - Glycemic team to follow, appreciate recs - NPH 17u qAM, 7units qHS - Lispro 5 units TID AC - Lispro 3 units with snacks #DVT ppx - lovenox, SCDs #dispo - struggling to care for himself at home - PT recommends SNF- CM working on placement, pending Nieves Small MD PGY-1 General Surgery Pager #[phone] Associated attestation - Luan Garcia MD - 10/20/2019 8:54 PM PSTNo overall change how ever increased creatinine will try IVF today I have personally managed patient immunsouppression tacn o change/pred/mmf I saw and evaluated the patient. I agree with the findings and the plan of care as dominick machado in the resident s note. LUAN GARCIA MD [facility] [id number] [place] [address] Nieves Small MD - 10/17/2019 12:10 PM PSTFormatting of this note might be different fro m the original. 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 Last Vitals: BP 119/67 (BP Location: Right upper arm, Patient Position: Lying on back) | P ulse 69 | Temp 36.3 C (97.3 F) (Oral) | Resp 16 | Ht 1.803 m (5' 11") | Wt 79.2 kg ( 174 lb 11.2 oz) | SpO2 99% | BMI 24.37 kg/m | BSA 1.99 m 24 Hour Vital Min/Max: Systolic (24hrs), Av , Min:119 , Max:157 Diastolic (24hrs), Av, Min:67, Max:88 Pulse Min: 64 Max: 72 Temp Min: 36.5 C (97.7 F) Max: 36.8 C (98.2 F) Resp Min: 18 Max: 18 SpO2 Min: 96 % Max: 99 % Intake/Output Summary (Last 24 hours) at 10/14/2019 1019 Last data filed at 10/14/2019 0415 Gross per 24 hour Intake 3395 ml Output 700 ml Net 2695 ml Gen nad, alert, depressed affect this AM Resp unlabored on RA Well-perfused Abd soft, NDNT Data CBC with diff last 72 hours (or 3 results) Recent Labs 10/12/19 0850 10/13/19 0513 10/14/19 0451 WBC 5.34 3.97 3.50 HB 11.2* 10.0* 9.3* HCT 34.5* 30.0* 29.0* PLT 101* 85* 71* NEUTROPERC 69.0 -- -- LYMPHPERC 23.2 -- -- MONOPERC 5.2 -- -- BASOPERC 0.7 -- -- EOSPERC 1.7 -- -- Lab Results Component Value Date NA 138 10/17/2019 K 4.9 10/17/2019 CL 104 10/17/2019 BICARB 30 10/17/2019 BUN 43 10/17/2019 CR 2.05 10/17/2019 GLU 149 10/17/2019 CA 9.6 10/17/2019 AST 10 10/17/2019 ALT 21 10/17/2019 AP 55 10/17/2019 TBILI 0.3 10/17/2019 TP 6.8 10/17/2019 ALB 3.9 10/17/2019 DIRBILI 4.2 07/07/2019 ANIONGAP 4 10/17/2019 ANIONALBCOR 4 10/17/2019 Labs: Lab Results Component Value Date MG 2.3 10/17/2019 Lab Results Component Value Date PO4 5.0 10/17/2019 Assessment and Plan: 54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 Calorie counts ongoing. Prealbumin pending. May need tube fe eding via Dobhoff if he cannot eat enough. Psychiatry evaluated and will continue mirtazapi ne. Social work consulted. #FTT - potassium-restricted diet - calorie counts- able to meet caloric requirements po - TID supplements #depression - continue mirtazapine, psych in agreement ans signed off - SW consult - pending recs #hyperkalemia #mild KAR - potassium-restricted diet - kayexelate three times weekly - bactrim stopped - Stop BID 20 mg po lasix daily. Will start Florinef today. #s/p OLTx - ASA - omeprazole - tacro, pred, aza - atovaquone, valcyte, fluc #SVT - amiodarone - metoprolol #DM - NPH, mealtime, SSI - Glycemic team to follow, appreciate recs - NPH 17u qAM, 7units qHS - Lispro 5 units TID AC - Lispro 3 units with snacks #DVT ppx - lovenox, SCDs #dispo - struggling to care for himself at home - PT/OT eval - PT recommends SNF- CM working on placement Nieves Small MD PGY-1 General Surgery Pager #[phone] Associated attestation - Luan Garcia MD - 10/17/2019 11:00 PM PSTGood allograft functi on Improved potassium Pt/ot Needs SNF placement I have personally managed patient immunosuppression no changes today I saw and evaluated the patient. I agree with the findings and the plan of care as dominick machado in the resident s note. LUAN GARCIA MD [facility] [address] [place] [address] Liv Stephenson, HOME HEALTH PHYSICAL THERAPIST - 10/16/2019 2:08 PM PSTPost- Transplant Social Work Inpatient Visit : Purpose of Visit: Dish Up Person met with pt at bedside due to inpt admission post transplant. Pt s Coping/Adjustment to Transplant Recovery: Pt reports his mother decided to leave early because the roads were clear and she needed to be home. Pt continues to have limited eye contact and mumbles throughout conversation, it's often difficult to decipher what pt is saying. Pt does appear slightly more engaged during this visit vs last clinic visit. He admits there were issues with his mother and since she h as left he has started to get out of bed more and eat more. Dish Up Person and pt discussed options upon discharge. Depending on his physical ability pt may or may not need rehab placement. Pt reports it's difficult to decide on a plan when he doesn't know where he will go after this hospital stay (rehab vs rental). Pt reports he can stay wi th his aunt and uncle in [place] although hasn't had this conversation with them yet. He a lso reports he can find an apartment, although designer/writer encouraged pt to find some help given his limited mobility. Pt reports perhaps his sister will come to help him for a week or so. Pt has also thought about going to [place] for a month but doesn't foresee this being a long te rm plan. Despite having options, pt appears to lack motivation to decide on which option will be bes t for him. Additional Concerns/Needs: Pt struggles to make a plan and start following through with anything. Given he is hospital ized and he still has some time in the rental, designer/writer encouraged pt try and make a decision. Dish Up Person offered help once decision is made. Plan: HOME HEALTH PHYSICAL THERAPIST will continue to be available to provide support and assistance as needed. Liv Stephenson LCSW [place] [phone] [place], Nieves Gomez MD - 10/16/2019 9:01 AM PST DEPARTMENT OF SURGERY Transplant Surgery Admission Date: 10/12/2019 ( LOS: 1 day ) Attending Provider: Coleman Weeks Interval History and Events: - No acute events overnight - K 4.9 this AM - CM working on SNF placement - SWS saw patient yesterday- patients family willing to help pay for housing until Nov 22 - Manager Of Selection And Assessment consulted- generally meeting caloric intake requirements, supplements prn Last Vitals: BP 129/72 | Pulse 70 | Temp 36.7 C (98.1 F) (Oral) | Resp 16 | Ht 1.80 3 m (5' 11") | Wt 80.9 kg (178 lb 4.8 oz) | SpO2 98% | BMI 24.87 kg/m | BSA 2.01 m 24 Hour Vital Min/Max: Systolic (24hrs), Av , Min:129 , Max:144 Diastolic (24hrs), Av, Min:64, Max:89 Pulse Min: 64 Max: 72 Temp Min: 36.5 C (97.7 F) Max: 36.8 C (98.2 F) Resp Min: 18 Max: 18 SpO2 Min: 96 % Max: 99 % Intake/Output Summary (Last 24 hours) at 10/14/2019 1019 Last data filed at 10/14/2019 0415 Gross per 24 hour Intake 3395 ml Output 700 ml Net 2695 ml PO 1182 UOP 195- Gen nad, alert, responding approprietly to questions this morning Resp unlabored on RA Well-perfused Abd soft, NDNT Trace ILA Data CBC with diff last 72 hours (or 3 results) Recent Labs 10/12/19 0850 10/13/19 0513 10/14/19 0451 WBC 5.34 3.97 3.50 HB 11.2* 10.0* 9.3* HCT 34.5* 30.0* 29.0* PLT 101* 85* 71* NEUTROPERC 69.0 -- -- LYMPHPERC 23.2 -- -- MONOPERC 5.2 -- -- BASOPERC 0.7 -- -- EOSPERC 1.7 -- -- Lab Results Component Value Date NA 141 10/16/2019 K 4.9 10/16/2019 CL 107 10/16/2019 BICARB 29 10/16/2019 BUN 44 10/16/2019 CR 1.97 10/16/2019 GLU 121 10/16/2019 CA 9.2 10/16/2019 AST 17 10/16/2019 ALT 19 10/16/2019 AP 50 10/16/2019 TBILI 0.3 10/16/2019 TP 6.1 10/16/2019 ALB 3.6 10/16/2019 DIRBILI 4.2 07/07/2019 ANIONGAP 5 10/16/2019 ANIONALBCOR 6 10/16/2019 Labs: Lab Results Component Value Date MG 1.3 10/16/2019 Lab Results Component Value Date PO4 4.9 10/16/2019 Assessment and Plan: 54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 Calorie counts ongoing. Prealbumin pending. May need tube fe eding via Dobhoff if he cannot eat enough. Psychiatry evaluated and will continue mirtazapi ne. Social work consulted. Will start kayexelate three times weekly. #FTT - potassium-restricted diet - calorie counts- able to meet caloric requirements po - TID supplements #depression - continue mirtazapine, psych in agreement ans signed off - SW consult - pending recs #hyperkalemia #mild KAR - potassium-restricted diet - kayexelate three times weekly - bactrim stopped - Stop BID 20 mg po lasix daily. Will start Florinef today. #s/p OLTx - ASA - omeprazole - tacro, pred, aza - atovaquone, valcyte, fluc #SVT - amiodarone - metoprolol #DM - NPH, mealtime, SSI - Glycemic team to follow, appreciate recs - NPH 17u qAM, 7units qHS - Lispro 5 units TID AC - Lispro 3 units with snacks #DVT ppx - lovenox, SCDs #dispo - struggling to care for himself at home - PT/OT eval - PT recommends SNF- CM working on placement Nieves Small MD PGY-1 General Surgery Pager #[phone] Associated attestation - Luan Garcia MD - 10/17/2019 5:59 AM PSTClinically well Eating well with good prealbumin and julia counts Will require SNF for physical rehab I have personally managed patient immunosuppression tac no increase today/pred/aza I saw and evaluated the patient. I agree with the findings and the plan of care as dominick machado in the resident s note. LUAN GARCIA MD [facility] [address] [facility] [place] [address] Erin Hodges MSW - 10/15/2019 3:26 PM PSTPost- Transplant Social Work Inpatient Visi t: Newspaper Writer met with pt bedside to follow up on his housing. Progress: Dish Up Person discussed pt's fpc housing options at patients bedside. Patient was somewhat engaged, made mimimal eye contact and mumbled throughout the visit. Patient relayed that he doesn't know where he wants to live. 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 Patient relays merlyn t his relationship with his mother has become strained due to her increasing stress from ext ernal stressors. Patient does understand he needs to start looking for an apartment and has considered living in [place] should he need to stay near the hospital. Patient states merlyn t he is determining where he will move based on his health. Patient relays that he is debat ing staying with his children who live close to [place] but has not talked with them yet. Patient relays that he has been focusing on his health but will put more thought into obtain ing long-term housing. Patient reports that his mood has improved and feels that his health is improving as well. Patient relays that he feels like his depressive symptomology was due to his declining heal th and increasing tensions between him and his mother. Patient He denies any thoughts to quintana rm himself. He verbalize hope in his future and want and need to move forward. Follow Up Plan: Family appears to be willing to pay for pt's rental until Nov 22. Liver Tr ansplant Newspaper Writer will continue to support pt in this process. WINIFRED Delacruz, [facility] Newspaper Writer Pager [phone] signed by WINIFRED Delacruz at 10/16/2019 2:39 PM PSTPatel, Nieves Gomez MD - 10/15/2019 6:04 AM PSTFormatting of this note might be different from the or iginal. 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 - Mom returned to [place] - Pre alb 23, 2210 kcal yest Last Vitals: BP 134/75 | Pulse 66 | Temp 36.9 C (98.4 F) | Resp 16 | Ht 1.803 m (5' 11") | Wt 80.9 kg (178 lb 6.4 oz) | SpO2 95% | BMI 24.88 kg/m | BSA 2.01 m 24 Hour Vital Min/Max: Systolic (24hrs), Av , Min:131 , Max:147 Diastolic (24hrs), Av, Min:61, Max:83 Pulse Min: 64 Max: 72 Temp Min: 36.5 C (97.7 F) Max: 36.8 C (98.2 F) Resp Min: 18 Max: 18 SpO2 Min: 96 % Max: 99 % Intake/Output Summary (Last 24 hours) at 10/14/2019 1019 Last data filed at 10/14/2019 0415 Gross per 24 hour Intake 3395 ml Output 700 ml Net 2695 ml PO 1664 UOP 700 5x Gen nad, alert, responding approprietly to questions this morning Resp unlabored on RA Well-perfused Abd soft, NDNT Trace ILA Data CBC with diff last 72 hours (or 3 results) Recent Labs 10/12/19 0850 10/13/19 0513 10/14/19 0451 WBC 5.34 3.97 3.50 HB 11.2* 10.0* 9.3* HCT 34.5* 30.0* 29.0* PLT 101* 85* 71* NEUTROPERC 69.0 -- -- LYMPHPERC 23.2 -- -- MONOPERC 5.2 -- -- BASOPERC 0.7 -- -- EOSPERC 1.7 -- -- Lab Results Component Value Date NA 140 10/15/2019 K 5.1 10/15/2019 CL 107 10/15/2019 BICARB 28 10/15/2019 BUN 46 10/15/2019 CR 2.06 10/15/2019 GLU 205 10/15/2019 CA 9.2 10/15/2019 AST 10 10/15/2019 ALT 19 10/15/2019 AP 55 10/15/2019 TBILI 0.3 10/15/2019 TP 6.1 10/15/2019 ALB 3.6 10/15/2019 DIRBILI 4.2 07/07/2019 ANIONGAP 5 10/15/2019 ANIONALBCOR 6 10/15/2019 Labs: Lab Results Component Value Date MG 1.4 10/15/2019 Lab Results Component Value Date PO4 4.6 10/15/2019 Assessment and Plan: 54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 Calorie counts ongoing. Prealbumin pending. May need tube fe eding via Dobhoff if he cannot eat enough. Psychiatry evaluated and will continue mirtazapi ne. Social work consulted. Will start kayexelate three times weekly. #FTT - potassium-restricted diet - calorie counts - TID supplements - Taking adequate PO- can likely hold off on DHT for now #depression - continue mirtazapine - psych signed off - consult - pending recs #hyperkalemia #mild KAR - potassium-restricted diet - kayexelate three times weekly - bactrim stopped - BID 20 mg po lasix daily #s/p OLTx - ASA - omeprazole - tacro, pred, aza - atovaquone, valcyte, fluc #SVT - amiodarone - metoprolol #DM - NPH, mealtime, SSI - Glycemic team to follow, appreciate recs #DVT ppx - lovenox, SCDs #dispo - struggling to care for himself at home - PT/OT eval - PT recommends SNF- will discuss with CM today Nieves Small MD PGY-1 General Surgery Pager #[phone] Associated attestation - Desi, Rod Trivedi MD - 10/15/2019 1:36 PM PSTTransplan t Surgery Staff Note I have seen and evaluated the patient and agree with the plan as outlined in the resident's note on 10/15. Lasix 20 bid. DC planning for SNF. I personally reviewed and supervised immune suppression management for this patient. This includes prednisone, azathioprine, and tacrolimus with a trough goal of 6-10. We dosed tacr olimus at 4bid. Coleman Weeks Asst. Professor Division of Abdominal Organ Transplantation and Hepatobiliary Surgery [facility], [place], [place] Broderick Kern MD - 10/14/2019 10:18 AM PST DEPARTMENT OF SURGERY Transplant Surgery Admission Date: 10/12/2019 ( LOS: 1 day ) Attending Provider: Coleman Weeks Interval History and Events: -No acute events overnight Last Vitals: BP 153/70 (BP Location: Left upper arm, Patient Position: Lying on back) | Pu lse 71 | Temp 36.6 C (97.9 F) (Oral) | Resp 18 | Ht 1.803 m (5' 11") | Wt 80.6 kg (1 77 lb 11.1 oz) | SpO2 96% | BMI 24.78 kg/m | BSA 2.01 m 24 Hour Vital Min/Max: Systolic (24hrs), Av , Min:131 , Max:153 Diastolic (24hrs), Av, Min:70, Max:77 Pulse Min: 64 Max: 72 Temp Min: 36.5 C (97.7 F) Max: 36.8 C (98.2 F) Resp Min: 18 Max: 18 SpO2 Min: 96 % Max: 99 % Intake/Output Summary (Last 24 hours) at 10/14/2019 1019 Last data filed at 10/14/2019 0415 Gross per 24 hour Intake 3395 ml Output 700 ml Net 2695 ml PO 1345 IV 2400 UOP 700 Gen nad, alert, responding approprietly to questions this morning Resp unlabored on RA Well-perfused Abd soft, NDNT Trace ILA Data CBC with diff last 72 hours (or 3 results) Recent Labs 10/12/19 0850 10/13/19 0513 10/14/19 0451 WBC 5.34 3.97 3.50 HB 11.2* 10.0* 9.3* HCT 34.5* 30.0* 29.0* PLT 101* 85* 71* NEUTROPERC 69.0 -- -- LYMPHPERC 23.2 -- -- MONOPERC 5.2 -- -- BASOPERC 0.7 -- -- EOSPERC 1.7 -- -- Lab Results Component Value Date NA 140 10/14/2019 K 5.0 10/14/2019 CL 107 10/14/2019 BICARB 28 10/14/2019 BUN 49 10/14/2019 CR 2.12 10/14/2019 GLU 128 10/14/2019 CA 9.1 10/14/2019 AST 9 10/14/2019 ALT 17 10/14/2019 AP 54 10/14/2019 TBILI 0.3 10/14/2019 TP 6.0 10/14/2019 ALB 3.6 10/14/2019 DIRBILI 4.2 07/07/2019 ANIONGAP 5 10/14/2019 ANIONALBCOR 6 10/14/2019 Labs: Lab Results Component Value Date MG 1.5 10/14/2019 Lab Results Component Value Date PO4 4.6 10/14/2019 Assessment and Plan: 54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 Calorie counts ongoing. Prealbumin pending. May need tube fe eding via Dobhoff if he cannot eat enough. Psychiatry evaluated and will continue mirtazapi ne. Social work consulted. Will start kayexelate three times weekly. #FTT - potassium-restricted diet - calorie counts - TID supplements - fu prealbumin - possible DHT #depression - continue mirtazapine - psych signed off - consult - pending recs #hyperkalemia #mild KAR - drop IVF to 50 - potassium-restricted diet - kayexelate three times weekly - bactrim stopped #s/p OLTx - ASA - omeprazole - tacro, pred, aza - atovaquone, valcyte, fluc #SVT - amiodarone - metoprolol #DM - NPH, mealtime, SSI #DVT ppx - lovenox, SCDs #dispo - struggling to care for himself at home - PT/OT eval - PT recommends SNF - Will start SNF process with after holiday Broderick Kern MD HPB Fellow P- [phone] Associated attestation - Desi, Rod Trivedi MD - 10/15/2019 1:34 PM PSTTransplan t Surgery Staff Note I have seen and evaluated the patient and agree with the plan as outlined in the resident's note on 10/14. TF not necessary so far. More interactive. Appreciate Psych input. I personally reviewed and supervised immune suppression management for this patient. This includes prednisone, azathioprine, and tacrolimus with a trough goal of 6-10. We dosed tacr olimus at 3bid. Coleman Weeks Asst. Professor Division of Abdominal Organ Transplantation and Hepatobiliary Surgery [facility], [place] Charlene Leonard MD - 10/13/2019 10:52 AM PSTFormatting of this note might be different fr om the original. DEPARTMENT OF SURGERY Transplant Surgery Admission Date: 10/12/2019 ( LOS: 1 day ) Attending Provider: Coleman Weeks Interval History and Events: - hyperkalemic to 6.8, improved to 5.4 with lasix - Cr down to 1.95 this morning - says he had 1.5 slices of pizza and fruit for dinner - not OOB - seen by psych Tm 37.1 HR 61-72 BP 130/78-151/83 SpO2 92-100% PO 1,020 UOP 1,675 Stool 1x NAD Resp unlabored on RA Well-perfused Abd soft, NDNT Trace ILA Data Lab Results Component Value Date WBC 3.97 10/13/2019 HB 10.0 10/13/2019 HCT 30.0 10/13/2019 PLT 85 10/13/2019 MCV 89.3 10/13/2019 RDW 46.3 10/13/2019 Lab Results Component Value Date NA 137 10/13/2019 K 5.4 10/13/2019 CL 104 10/13/2019 BICARB 27 10/13/2019 BUN 52 10/13/2019 CR 1.95 10/13/2019 GLU 135 10/13/2019 CA 9.4 10/13/2019 AST 14 10/13/2019 ALT 15 10/13/2019 AP 57 10/13/2019 TBILI 0.4 10/13/2019 TP 6.3 10/13/2019 ALB 3.7 10/13/2019 DIRBILI 4.2 07/07/2019 ANIONGAP 6 10/13/2019 ANIONALBCOR 6 10/13/2019 Labs: Lab Results Component Value Date MG 1.6 10/13/2019 Lab Results Component Value Date PO4 5.0 10/13/2019 Assessment and Plan: 54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 Calorie counts ongoing. Prealbumin pending. May need tube fe eding via Dobhoff if he cannot eat enough. Psychiatry evaluated and will continue mirtazapi ne. Social work consulted. Will start kayexelate three times weekly. #FTT - potassium-restricted diet - calorie counts - TID supplements - fu prealbumin - possible DHT #depression - continue mirtazapine - psych signed off - consult #hyperkalemia #mild KAR - continue IVF for now - potassium-restricted diet - kayexelate three times weekly - stop bactrim #s/p OLTx - ASA - omeprazole - tacro, pred, aza - atovaquone, valcyte, fluc #SVT - amiodarone - metoprolol #DM - NPH, mealtime, SSI #DVT ppx - lovenox, SCDs #dispo - struggling to care for himself at home - PT/OT jae Leonard MD R3 [id number] signed by Rod Weeks MD at 9 1:34 PM PST Associated attestation - Rod Weeks MD - 10/15/2019 1:34 PM PSTTransplan t Surgery Staff Note I have seen and evaluated the patient and agree with the plan as outlined in the resident's note on 10/13. Encouraging po intake and PT participation. SW input most appreciated. I personally reviewed and supervised immune suppression management for this patient. This includes prednisone, azathioprine, and tacrolimus with a trough goal of 6-10. We dosed tacr olimus at 3bid. C. Farooq Weeks Asst. Professor Division of Abdominal Organ Transplantation and Hepatobiliary Surgery [facility], [place] documented in this encounter H&P Notes Palmer JOHNSON, Nisreen Leyva - 10/12/2019 11:19 AM PSTFormatting of this note might be different fr om the original. 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 His last run ofHD on 09/01. The dialysis catheter was removed on 09/15. Out of the hospital he is living with his mother in a rented house in [place]. Originally he was doing well and progressing along with his recovery. However, a few weeks ago (per his mother) it" seemed like he gave up". Per his mother he is not getting out of bed, refusing to eat, and is refusing help with his medicines. He states he is taking them but his support thinks otherwise. He is urinating in his hospital urinal, only getting out of bed once it w as full. He admits he is depressed and states he has no where to go once he is allowed to le [facility]. On morning labs his creatinine worsened and his potassium increased to 5.7. His last blood alcohol testing on 10/09 was negative. His labs are stable otherwise. He was direct admitted to to work on PT, nutrition, and mental health strategies. Past Medical History: 1. Alcohol cirrhosis 2. Acute alcohol hepatitis 3. Ascites 4. Lower extremity edema 5. Hepatorenal syndrome 6. CKD stage III 7. Hypebilirubinemia 8. Hyperkalemia 9. Steroid induced hyperglycemia 10. HTN Past Surgical History: Orthotopic liver transplant 08/16 Medication Allergy: Allergies Allergen Reactions Doxycycline Hives and Rash Medications: Current Medication List Name Sig ALCOHOL [...] daily. Indications: liver transplant rej ection prevention TACROLIMUS 1 MG CAPSULE Take 2 capsules by mouth two times daily. Indications: liver transp lant rejection prevention VALGANCICLOVIR 450 MG TABLET Take 1 tablet by mouth three times weekly (on Saturday, y and Saturday). Indications: viral infection prevention Review of Systems: Constitutional: No fevers, night sweats, or weight change. Eyes: No double vision, eye pain, discharge, [...] weakness, memory loss, or change in coordination. Skin: No rash or open wounds. Exam: Vitals: 10/12/19 1345 BP: 139/87 BP Location: Right upper arm Patient Position: Lying on back Pulse: 72 Resp: 18 Temp: 36.4 C (97.5 F) TempSrc: Oral SpO2: 100% Weight: 79.5 kg (175 lb 4.3 oz) Height: 1.803 m (5' 11") Const - awake, comfortable, laying in bed in room. Tearful. mumbling Neuro - CN II-XII intact. Alert and oriented to person, place, time, and situation. ENT - EOMI, PERRL, no scleral icterus; trachea midline, no cervical lymphadenopathy. Cardio - RRR, no M/R/G. Palpable radial, brachial, femoral, popliteal, DP and PT pulses bi laterally. Pulm - CTA B. GI - soft, NT, surgical incision with small old hematoma Skin - WWP, mile edema MS - no joint swelling, no CVA tenderness, back straight. Labs: Chemistries: Last 72 Hours (or 3 results) - Refreshable Recent Labs 10/12/19 0850 NA 138 K 5.7* CL 105 BICARB 29 BUN 53* CR 2.24* GLU 178* CA 10.3* MG 1.8 PO4 5.1* Liver Tests: Last 72 hours (or 3 results) Recent Labs 10/12/19 0850 AST 12 ALT 18 TBILI 0.5 AP 67 ALB 4.2 TP 7.2 Lab Results Component Value Date INRPT 1.07 10/05/2019 CBC with diff last 72 hours (or 3 results) - Refreshable Recent Labs 10/12/19 0850 WBC 5.34 HB 11.2* HCT 34.5* PLT 101* NEUTROPERC 69.0 LYMPHPERC 23.2 MONOPERC 5.2 BASOPERC 0.7 EOSPERC 1.7 Lab Results Component Value Date FK506 5.0 10/12/2019 Assessment Donell Duran is a 54 y/o male with PMH of alcohol abuse, SVT, renal failure s/p OLTx on 2018 who is being readmitted for KAR and failure to thrive. Need to optimize PT/OT, social w ork, and nutrition. Plan: 1. Admit to 4 2. Immunosuppression: Tacrolimus, MMF, Prednisone 3. Prophylaxis: Valcyte, Fluconazole, Atovaquone (for hyperkalemia) 4. Repeat labs, fluid, shift potassium. 5. Social work 6. Calorie counts 7. PT/OT Elva kevin in this encounter Consult Notes Jovany Pulliam, JESSICA - 10/26/2019 9:08 AM PSTFormatting of this note might be different fr om the original. INPATIENT GLYCEMIC TEAM CONSULT FOLLOW-UP NOTE ASSESSMENT: 54 y.o. male with a Type 2 diabetes (Hgb A1c 8.1% 07/17/19) ESLD 2/2 EtOH s/p OLTx 08/16. Quintana d course c/b SVT and HRS/KAR previously on HD now with chronic insufficiency but off HD. Pt is re-admitted for failure to thrive, depression and hyperkalemia. We are consulted for glyc emic management. AM CBG within target range. Continue current insulin regimen while inpatient. Patient antic ipating discharge today to home. Plan to discharge patient on oral medication and once daily insulin to manage his diabetes with lantus scale. This was discussed with the patient and h e stated he felt comfortable with this discharge plan going home, all questions at that time answered. Discharge recommendations communicated to primary team. Will continue to monitor closely for continuing glycemic regimen modification needs. Target glucose : Fasting and before meals <140, Random <180 Home Rx : NPH 17 units qAM, NPH 7 units qHS, Lispro 5 units with breakfast, Lispro 10 un its with lunch, Lispro 12 units with dinner Diet : Regular Current Rx: : Glargine 12 units qHS, lispro 5 units TID AC, CBG ACHS + Moderate SS IV fluids : N/A Steroids : Prednisone 5 mg qAM - last dose 10/20/19 Insulin infusion requirement : N/A RECOMMENDATIONS: These orders have been entered as orders per preference of the primary team: While inpatient: Lispro 7 units TID AC Glargine 12 units qHS CBG ACHS + Moderate SSI At discharge to facility: Continue inpatient regimen At discharge to home: Stop previous subcutaneous insulin at home (NPH 17 units qAM, NPH 7 units qHS, Lispro 5 units with breakfast, Lispro 10 units with lunch, Lispro 12 units with dinner) Start Glimepiride 1mg qAM (every morning). Check your blood glucose every morning before eating and every night before bed. If your AM CBG (morning blood sugar) is > 140 mg/dL or P M CBG (evening blood sugar) >180 mg/dL increase your dose of Glimepiride to 2mg qAM (every m orning) and contact your PCP Start Glargine 10 units qHS (every evening) and adjust dose based on your morning CBG us ing Glargine Scale Your target morning blood sugar is 80-130. To reach this target you should change your insulin dose every three days. You will probabl y need to adjust several times at home If you morning glucose level is higher than this you should increase your insulin dose. If your morning blood sugar level is lower than this you should decrease your dose. Use the f ollowing chart to help adjust your glargine insulin dose: Average Morning blood sugar for 3 days Change in glargine insulin dose Over 180 Increase by 5 units 151-180 Increase by 3 units 131-150 Increase by 1 unit 80-130 No change in insulin dose 60-79 Decrease insulin by 2 units Less 60 Decrease insulin by 4 units Follow-up with your primary care doctor within 1 week for further glycemic management Call your doctor with a blood sugar <70 or >180. If you have symptoms of hypoglycemia (sweating, fast heart rate, lightheadedness, hunger , fatigue, nausea, confusion, anxiety, combativeness) check your blood sugar. If it is <70, drink juice with sugar and check again in 30 minutes. Thank you for the opportunity to contribute to this patient's care. For glycemic needs, contact glycemic team from 8AM-5PM ([phone]) . Outside of that t [place], all questions should be directed to the primary team. INTERVAL HISTORY: Diabetes related history: Prior diagnosis of diabetes? : Y Type of diabetes: : T2DM Duration of diabetes: : 4 months Family hx of DM? : N On insulin at home? : Y HbA1C : Lab Results Component Value Date A1C 8.1 (H) 07/17/2019 On steroids? : Y - Prednisone 5mg qAM Anti-psychotics? : N KAR/CKD? : Y Liver failure? : Y- s/p OLTx 08/16 CHF? : N Pancreatic conditions? : N Diabetes medications prior to admission: : NPH, Lispro ROS: A systems ROS essentially negative except for what is mentioned as positive in HPI or elsew here in this note. PMHx: Past Medical History: Diagnosis Date Cirrhosis (HCC) CKD (chronic kidney disease) PSurgHx: Past Surgical History Procedure Laterality Date Leg surgery FamHx: Family History Problem Relation Liver cancer Neg Hx SOCIAL Hx: Social History Socioeconomic History Marital status: Single [...] file Gets together: Not on file Attends worship service: Not on file Active member of club or organization: Not on file Attends meetings of clubs or organizations: Not on file Relationship status: Not on file Other Topics Concern Not on file Social History Narrative Not on file HOME MEDICATIONS: Medications Prior to Admission Medication Sig Dispense Refill Last Dose Alcohol Swabs (ALCOHOL PREP SWABS) topical pads, medicated Apply 1 each to affected are a five times daily. Use as directed. 200 each 1 10/09/2019 amiodarone 200 mg oral tablet Take 1 tablet by mouth once daily. Indications: Preventio n of Ventricular Fibrillation 30 tablet 1 10/09/2019 aspirin EC 325 mg oral tablet,delayed release (DR/EC) Take 1 tablet by mouth once daily . 100 tablet 5 10/09/2019 atovaquone 750 mg/5 mL oral suspension Take 10 mL by mouth once daily. 150 mL 2 019 Blood Sugar Diagnostic (FREESTYLE LITE STRIPS) miscellaneous (misc) strip Test blood abreu gar four times daily (before each meal and at bedtime). Use as directed. Indications: type 2 diabetes mellitus 150 each 5 10/09/2019 Blood-Glucose Meter (FREESTYLE LITE METER) miscellaneous (misc) kit Use as directed. Us e as directed. 1 each 0 10/09/2019 calcium carbonate 500 mg elemental (1,250 mg total salt) oral tablet Take 2 tablets by mouth once daily at bedtime. Indications: osteoporosis prevention 100 tablet 5 10/09/2019 chlorhexidine 0.12 % mucous membrane mouthwash Use cotton swab to dab chlorhexdine and apply gently to wound. 473 mL 2 10/09/2019 Cholecalciferol (Vitamin D3) 2,000 unit oral tablet Take 1 tablet by mouth once daily. 10/09/2019 insulin lispro (Human) 100 unit/mL subcutaneous insulin pen Inject 5 units under the sk in with breakfast, 10 units under the skin with lunch, 12 units under the skin with dinner. Max dose = 56 units per day Indications: type 2 diabetes mellitus 15 mL 1 10/09/2019 Insulin Mesilla (Disposable) (COMFORT EZ PEN NEEDLES) 31 gauge x 5/16" miscellaneous (m isc) needle Use as directed for 5 insulin injections per day. 150 each 5 10/09/2019 insulin NPH 100 unit/mL (3 mL) subcutaneous [...] evening. Indications: type 2 diabetes isela itus.) 15 mL 1 10/09/2019 lancets (FREESTYLE LANCETS) 28 gauge miscellaneous (misc) misc Test blood sugar four ti mes daily (before each meal and at bedtime). Indications: type 2 diabetes mellitus 150 each 5 10/09/2019 magnesium oxide 250 mg elemental oral tablet Take 2 tablets by mouth two times daily. 1 00 tablet 5 10/09/2019 metoprolol succinate 25 mg oral tablet extended release 24 hr Take 0.5 tablets by mouth once daily. Indications: high blood pressure 15 tablet 5 10/09/2019 [] mirtazapine 15 mg oral tablet Take 1 tablet by mouth once daily in the [facility] for 14 days. Indications: lack of appetite 14 tablet 0 10/09/2019 Miscellaneous Medical Supply miscellaneous (misc) misc Chlorhexidine prep sticks (small ) 30 each 2 10/09/2019 multivitamin oral tablet Take 1 tablet by mouth once daily. Indications: Treatment To P revent Vitamin Deficiency 100 tablet 5 10/09/2019 mycophenolate 250 mg oral capsule Take 4 capsules by mouth two times daily. Indications : liver transplant rejection prevention 240 capsule 5 10/09/2019 omeprazole 20 mg oral capsule,delayed release(DR/EC) Take 1 capsule by mouth once daily . Indications: heartburn 30 capsule 5 10/09/2019 predniSONE 5 mg oral tablet Take 1 tablet by mouth once daily. Indications: liver trans plant rejection prevention 120 tablet 5 10/09/2019 tacrolimus 1 mg oral capsule Take 2 capsules by mouth two times daily. Indications: niels er transplant rejection prevention 300 capsule 5 10/09/2019 valGANciclovir 450 mg oral tablet Take 1 tablet by mouth three times weekly (on Saturday, Saturday and Saturday). Indications: viral infection prevention 12 tablet 0 CURRENT MEDICATIONS: Current Facility-Administered Medications: acetaminophen (TYLENOL) tablet 325 mg, 325 mg, o ral, Q4H PRN, Charlene Leonard MD, 325 mg at 10/17/19 1014 amiodarone (CORDARONE) tablet 200 mg, 200 mg, oral, DAILY, Charlene Leonard MD, 200 mg at 0 10/25/19 0800 aspirin EC tablet 325 mg, 325 mg, oral, DAILY, Charlene Leonard MD, 325 mg at 10/25/19 0755 atovaquone (MEPRON) suspension 1,500 mg, 1,500 mg, oral, DAILY, Charlene Leonard MD, 1,500 mg at 10/25/19 1307 dextrose 50 % in water IV 25 mL, 25 mL, intravenous, PRN, Charlene Leonard MD enoxaparin (LOVENOX) injection 30 mg, 30 mg, subcutaneous, QPM, Charlene Leonard MD, 30 mg at 10/25/19 2200 fludrocortisone (FLORINEF) tablet 0.1 mg, 0.1 mg, oral, DAILY, Nieves Small MD, 0.1 mg a t 10/25/19 0755 glucagon (GLUCAGEN) injection 1 mg, 1 mg, intramuscular, PRN, Charlene Leonard MD glucose chewable tablet 16 g, 16 g, oral, PRN, Charlene Leonard MD insulin glargine (LANTUS) injection 12 Units, 12 Units, subcutaneous, HS, Jovany Pulliam, AC [employer], 12 Units at 10/25/19 2231 insulin lispro (HUMALOG) injection 1-16 Units, 1-16 Units, subcutaneous, QID, Erich Hernandez Jr., GRADER MARKER, 1 Units at 10/25/19 223 insulin lispro (HUMALOG) injection 7 Units, 7 Units, subcutaneous, TID W/MEALS, Jovany Gold il, ACNP, 7 Units at 10/26/19 0816 magnesium oxide (MAG-OX) tablet 400 mg, 400 mg, oral, BID, Rod Weeks MD, 400 mg at 10/25/192148 metoprolol tartrate (LOPRESSOR) tablet 12.5 mg, 12.5 mg, oral, BID, Nieves Small MD mirtazapine (REMERON) tablet 30 mg, 30 mg, oral, QPM, Luan Garcia MD, 30 mg at 10/25/192148 mycophenolate (CELLCEPT) capsule 1,000 mg, 1,000 mg, oral, BID (MMF), Pattie Ignacio PA-C ondansetron (ZOFRAN) injection 4 mg, 4 mg, intravenous, Q12H PRN, Farrukh Ceron MD, 4 mg a t 10/22/19 1421 ondansetron ODT (ZOFRAN ODT) tablet 4 mg, 4 mg, oral, Q8H PRN, Farrukh Ceron MD, 4 mg at 0 10/22/19 2157 tacrolimus capsule 3 mg, 3 mg, oral, BID, Nieves Small MD, 3 mg at 10/26/19 0815 valGANciclovir (VALCYTE) tablet 450 mg, 450 mg, oral, DAILY, Rod Weeks MD , 450 mg at 10/25/19 0755 ALLERGIES: Allergies Allergen Reactions Doxycycline Hives and Rash PHYSICAL EXAM: Last Vitals: BP 129/76 (BP Location: Right upper arm, Patient Position: Lying on back) | Pulse 70 | Temp 36.5 C (97.7 F) (Oral) | Resp 16 | Ht 1.803 m (5' 11") | Wt 81.1 kg (178 lb 12.7 oz) | SpO2 100% | BMI 24.94 kg/m | BSA 2.02 m General: No distress Resp: unlabored LAB DATA: Lab Results Component Value Date A1C 8.1 07/17/2019 A1C <3.5 04/21/2019 Last 8 POC CBG's Lab Results Component Value Date GLU 96 10/26/2019 GLU 112 (H) 10/26/2019 GLU 168 (H) 10/25/2019 GLU 120 (H) 10/25/2019 GLU 109 (H) 10/25/2019 GLU 199 (H) 10/25/2019 GLU 168 (H) 10/24/2019 GLU 150 (H) 10/24/2019 Recent Labs 10/21/19 0940 10/22/19 0544 10/26/19 0547 AST 13 9 9 ALT 19 16 21 TBILI 0.3 0.3 0.3 AP 52* 48* 49* ALB 3.8 3.3* 3.5 TP 6.4 5.9* 6.1* Recent Labs 10/21/19 0940 10/22/19 0544 10/24/19 1304 10/25/19 2200 10/26/19 0547 10/26/19 0731 GLU 187* < > 124* < > 137* < > 168* 112* 96 BUN 47* -- 46* -- 43* -- -- 42* -- CR 1.95* -- 2.13* -- 2.16* -- -- 2.16* -- ALB 3.8 -- 3.3* -- -- -- -- 3.5 -- CA 9.7 -- 9.3 -- 9.1 -- -- 9.2 -- NA 141 -- 142 -- 141 -- -- 139 -- K 4.6 -- 4.8 -- 4.5 -- -- 4.5 -- CL 108 -- 108 -- 108 -- -- 107 -- BICARB 29 -- 30 -- 31 -- -- 30 -- < > = values in this interval not displayed. Lab Results Component Value Date WBC 1.93 10/26/2019 HB 10.0 10/26/2019 HCT 30.8 10/26/2019 PLT 67 10/26/2019 MCV 90.3 10/26/2019 RDW 45.5 10/26/2019 Lab Results Component Value Date TSH 1.72 10/13/2019 TSH 0.47 07/18/2019 TSH 1.33 04/21/2019 No results found for: DARIANALJESSICA Alegria Glycemic Team - [facility] Endocrinology, Diabetes, & Clinical Nutrition Glycemic Team Phone (8AM-5PM): [phone] Glycemic Team Pager: [phone] I spent 28 minutes in the care of this patient. Greater than 50% of the time was spent cou nseling regarding management of diabetes in the hospital and coordination of care with floor nurses and team. This patient s assessment and plan were discussed with consult attending Dr. Odom . Jovany Harrison ACNP - 10/25/2019 12:06 PM PST INPATIENT GLYCEMIC TEAM CONSULT FOLLOW-UP NOTE ASSESSMENT: 54 y.o. male with a Type 2 diabetes (Hgb A1c 8.1% 07/17/19) ESLD 2/2 EtOH s/p OLTx 08/16. Quintana d course c/b SVT and HRS/KAR previously on HD now with chronic insufficiency but off HD. Pt is re-admitted for failure to thrive, depression and hyperkalemia. We are consulted for glyc emic management. AM CBG within target range. Continue basal insulin Based on response to prandial insulin, d oses increased. Patient anticipating discharge in the next couple days, with increasing insu michaela requirements we anticipate patient will need to go home on once daily insulin. This was discussed with the patient and he stated he felt comfortable with this discharge plan. Disch arge recommendations communicated to primary team. If patient discharges to a nursing facili , continue inpatient regimen. Will continue to monitor closely for continuing glycemic regimen modification needs. Target glucose : Fasting and before meals <140, Random <180 Home Rx : NPH 17 units qAM, NPH 7 units qHS, Lispro 5 units with breakfast, Lispro 10 un its with lunch, Lispro 12 units with dinner Diet : Regular Current Rx: : Glargine 12 units qHS, lispro 5 units TID AC, CBG ACHS + Moderate SS IV fluids : N/A Steroids : Prednisone 5 mg qAM - last dose 10/20/19 Insulin infusion requirement : N/A RECOMMENDATIONS: These orders have been entered as orders per preference of the primary team: While inpatient: Increase Lispro 5 =>7 units TID AC Glargine 12 units qHS CBG ACHS + Moderate SSI At discharge to facility: Continue inpatient regimen At discharge to home: Stop subcutaneous insulin at home (NPH 17 units qAM, NPH 7 units qHS, Lispro 5 units wit h breakfast, Lispro 10 units with lunch, Lispro 12 units with dinner) Start Glimepiride 1mg qAM (every morning). Check your blood glucose every morning before eating and every night before bed. If your AM CBG is > 140 mg/dL or PM CBG >180 mg/dL incre ase your dose of Glimepiride to 2mg qAM and contact your PCP Start Glargine 10 units qHS (every evening) and adjust dose based on your morning CBG us ing Glargine Scale Your target morning blood sugar is 80-130. To reach this target you should change your insulin dose every three days. You will probabl y need to adjust several times at home If you morning glucose level is higher than this you should increase your insulin dose. If your morning blood sugar level is lower than this you should decrease your dose. Use the f ollowing chart to help adjust your glargine insulin dose: Average Morning blood sugar for 3 days Change in glargine insulin dose Over 180 Increase by 5 units 151-180 Increase by 3 units 131-150 Increase by 1 unit 80-130 No change in insulin dose 60-79 Decrease insulin by 2 units Less 60 Decrease insulin by 4 units Follow-up with your primary care doctor within 1 week for further glycemic management Call your doctor with a blood sugar <70 or >180. If you have symptoms of hypoglycemia (sweating, fast heart rate, lightheadedness, hunger , fatigue, nausea, confusion, anxiety, combativeness) check your blood sugar. If it is <70, drink juice with sugar and check again in 30 minutes. Thank you for the opportunity to contribute to this patient's care. For glycemic needs, contact glycemic team from 8AM-5PM ([phone]) . Outside of that t [place], all questions should be directed to the primary team. INTERVAL HISTORY: Diabetes related history: Prior diagnosis of diabetes? : Y Type of diabetes: : T2DM Duration of diabetes: : 4 months Family hx of DM? : N On insulin at home? : Y HbA1C : Lab Results Component Value Date A1C 8.1 (H) 07/17/2019 On steroids? : Y - Prednisone 5mg qAM Anti-psychotics? : N KAR/CKD? : Y Liver failure? : Y- s/p OLTx 08/16 CHF? : N Pancreatic conditions? : N Diabetes medications prior to admission: : NPH, Lispro ROS: A systems ROS essentially negative except for what is mentioned as positive in HPI or elsew here in this note. PMHx: Past Medical History: Diagnosis Date Cirrhosis (HCC) CKD (chronic kidney disease) PSurgHx: Past Surgical History Procedure Laterality Date Leg surgery FamHx: Family History Problem Relation Liver cancer Neg Hx SOCIAL Hx: Social History Socioeconomic History Marital status: Single [...] file Gets together: Not on file Attends worship service: Not on file Active member of club or organization: Not on file Attends meetings of clubs or organizations: Not on file Relationship status: Not on file Other Topics Concern Not on file Social History Narrative Not on file HOME MEDICATIONS: Medications Prior to Admission Medication Sig Dispense Refill Last Dose Alcohol Swabs (ALCOHOL PREP SWABS) topical pads, medicated Apply 1 each to affected are a five times daily. Use as directed. 200 each 1 10/09/2019 amiodarone 200 mg oral tablet Take 1 tablet by mouth once daily. Indications: Preventio n of Ventricular Fibrillation 30 tablet 1 10/09/2019 aspirin EC 325 mg oral tablet,delayed release (DR/EC) Take 1 tablet by mouth once daily . 100 tablet 5 10/09/2019 atovaquone 750 mg/5 mL oral suspension Take 10 mL by mouth once daily. 150 mL 2 019 Blood Sugar Diagnostic (FREESTYLE LITE STRIPS) miscellaneous (misc) strip Test blood abreu gar four times daily (before each meal and at bedtime). Use as directed. Indications: type 2 diabetes mellitus 150 each 5 10/09/2019 Blood-Glucose Meter (FREESTYLE LITE METER) miscellaneous (misc) kit Use as directed. Us e as directed. 1 each 0 10/09/2019 calcium carbonate 500 mg elemental (1,250 mg total salt) oral tablet Take 2 tablets by mouth once daily at bedtime. Indications: osteoporosis prevention 100 tablet 5 10/09/2019 chlorhexidine 0.12 % mucous membrane mouthwash Use cotton swab to dab chlorhexdine and apply gently to wound. 473 mL 2 10/09/2019 Cholecalciferol (Vitamin D3) 2,000 unit oral tablet Take 1 tablet by mouth once daily. 10/09/2019 insulin lispro (Human) 100 unit/mL subcutaneous insulin pen Inject 5 units under the sk in with breakfast, 10 units under the skin with lunch, 12 units under the skin with dinner. Max dose = 56 units per day Indications: type 2 diabetes mellitus 15 mL 1 10/09/2019 Insulin Mesilla (Disposable) (COMFORT EZ PEN NEEDLES) 31 gauge x 5/16" miscellaneous (m isc) needle Use as directed for 5 insulin injections per day. 150 each 5 10/09/2019 insulin NPH 100 unit/mL (3 mL) subcutaneous [...] evening. Indications: type 2 diabetes isela itus.) 15 mL 1 10/09/2019 lancets (FREESTYLE LANCETS) 28 gauge miscellaneous (misc) misc Test blood sugar four ti mes daily (before each meal and at bedtime). Indications: type 2 diabetes mellitus 150 each 5 10/09/2019 magnesium oxide 250 mg elemental oral tablet Take 2 tablets by mouth two times daily. 1 00 tablet 5 10/09/2019 metoprolol succinate 25 mg oral tablet extended release 24 hr Take 0.5 tablets by mouth once daily. Indications: high blood pressure 15 tablet 5 10/09/2019 [] mirtazapine 15 mg oral tablet Take 1 tablet by mouth once daily in the [facility] for 14 days. Indications: lack of appetite 14 tablet 0 10/09/2019 Miscellaneous Medical Supply miscellaneous (misc) misc Chlorhexidine prep sticks (small ) 30 each 2 10/09/2019 multivitamin oral tablet Take 1 tablet by mouth once daily. Indications: Treatment To P revent Vitamin Deficiency 100 tablet 5 10/09/2019 mycophenolate 250 mg oral capsule Take 4 capsules by mouth two times daily. Indications : liver transplant rejection prevention 240 capsule 5 10/09/2019 omeprazole 20 mg oral capsule,delayed release(DR/EC) Take 1 capsule by mouth once daily . Indications: heartburn 30 capsule 5 10/09/2019 predniSONE 5 mg oral tablet Take 1 tablet by mouth once daily. Indications: liver trans plant rejection prevention 120 tablet 5 10/09/2019 tacrolimus 1 mg oral capsule Take 2 capsules by mouth two times daily. Indications: niels er transplant rejection prevention 300 capsule 5 10/09/2019 valGANciclovir 450 mg oral tablet Take 1 tablet by mouth three times weekly (on Saturday, Saturday and Saturday). Indications: viral infection prevention 12 tablet 0 CURRENT MEDICATIONS: Current Facility-Administered Medications: acetaminophen (TYLENOL) tablet 325 mg, 325 mg, o ral, Q4H PRN, Charlene Leonard MD, 325 mg at 10/17/19 1014 amiodarone (CORDARONE) tablet 200 mg, 200 mg, oral, DAILY, Charlene Leonard MD, 200 mg at 0 10/25/19 0800 aspirin EC tablet 325 mg, 325 mg, oral, DAILY, Charlene Leonard MD, 325 mg at 10/25/19 0755 atovaquone (MEPRON) suspension 1,500 mg, 1,500 mg, oral, DAILY, Charlene Leonard MD, 1,500 mg at 10/24/19 1229 dextrose 50 % in water IV 25 mL, 25 mL, intravenous, PRN, Charlene Leonard MD enoxaparin (LOVENOX) injection 30 mg, 30 mg, subcutaneous, QPM, Charlene Leonard MD, 30 mg at 10/24/19 2127 fludrocortisone (FLORINEF) tablet 0.1 mg, 0.1 mg, oral, DAILY, Nieves Small MD, 0.1 mg a t 10/25/19 0755 glucagon (GLUCAGEN) injection 1 mg, 1 mg, intramuscular, PRN, Charlene Leonard MD glucose chewable tablet 16 g, 16 g, oral, PRN, Charlene Leonard MD insulin glargine (LANTUS) injection 12 Units, 12 Units, subcutaneous, HS, Jovany Pulliam, AC [employer], 12 Units at 10/25/19 0032 insulin lispro (HUMALOG) injection 1-16 Units, 1-16 Units, subcutaneous, QID, Erich Hernandez Jr., GRADER MARKER, 1 Units at 10/25/19 0033 insulin lispro (HUMALOG) injection 7 Units, 7 Units, subcutaneous, TID W/MEALS, Jovany Gold il, ACNP magnesium oxide (MAG-OX) tablet 400 mg, 400 mg, oral, BID, Rod Weeks MD, 400 mg at 10/25/19 0754 metoprolol tartrate (LOPRESSOR) tablet 25 mg, 25 mg, oral, BID, Nieves Small MD mirtazapine (REMERON) tablet 30 mg, 30 mg, oral, QPM, Luan Garcia MD, 30 mg at 10/24/192126 mycophenolate (CELLCEPT) capsule 1,000 mg, 1,000 mg, oral, BID (MMF), Charlene Leonard MD, 1,000 mg at 10/25/19 0755 ondansetron (ZOFRAN) injection 4 mg, 4 mg, intravenous, Q12H PRN, Farrukh Ceron MD, 4 mg a t 10/22/19 1421 ondansetron ODT (ZOFRAN ODT) tablet 4 mg, 4 mg, oral, Q8H PRN, Farrukh Ceron MD, 4 mg at 0 10/22/19 215 tacrolimus capsule 3 mg, 3 mg, oral, BID, Nieves Small MD, 3 mg at 10/25/19 0755 valGANciclovir (VALCYTE) tablet 450 mg, 450 mg, oral, DAILY, Rod Weeks MD , 450 mg at 10/25/19 0755 ALLERGIES: Allergies Allergen Reactions Doxycycline Hives and Rash PHYSICAL EXAM: Last Vitals: BP 113/73 (BP Location: Right upper arm, Patient Position: Lying on back) | Pulse 123 | Temp 36.6 C (97.9 F) (Oral) | Resp 18 | Ht 1.803 m (5' 11") | Wt 81.1 k g (178 lb 12.7 oz) | SpO2 99% | BMI 24.94 kg/m | BSA 2.02 m General: NAD Resp: normal effort LAB DATA: Lab Results Component Value Date A1C 8.1 07/17/2019 A1C <3.5 04/21/2019 Last 8 POC CBG's Lab Results Component Value Date GLU 109 (H) 10/25/2019 GLU 199 (H) 10/25/2019 GLU 168 (H) 10/24/2019 GLU 150 (H) 10/24/2019 GLU 137 (H) 10/24/2019 GLU 149 (H) 10/24/2019 GLU 129 (H) 10/24/2019 GLU 150 (H) 10/23/2019 Recent Labs 10/20/19 0602 10/21/19 0940 10/22/19 0544 AST 10 13 9 ALT 18 19 16 TBILI 0.2* 0.3 0.3 AP 51* 52* 48* ALB 3.6 3.8 3.3* TP 6.2* 6.4 5.9* Recent Labs 10/20/19 0602 10/21/19 0940 10/22/19 0544 10/24/19 1304 10/24/19 2120 10/25/19 0020 10/25/19 0724 GLU 116* < > 187* < > 124* < > 137* < > 168* 199* 109* BUN 54* -- 47* -- 46* -- 43* -- -- -- -- CR 2.29* -- 1.95* -- 2.13* -- 2.16* -- -- -- -- ALB 3.6 -- 3.8 -- 3.3* -- -- -- -- -- -- CA 9.6 -- 9.7 -- 9.3 -- 9.1 -- -- -- -- NA 141 -- 141 -- 142 -- 141 -- -- -- -- K 5.0 -- 4.6 -- 4.8 -- 4.5 -- -- -- -- CL 107 -- 108 -- 108 -- 108 -- -- -- -- BICARB 27 -- 29 -- 30 -- 31 -- -- -- -- < > = values in this interval not displayed. Lab Results Component Value Date WBC 2.38 10/24/2019 HB 9.8 10/24/2019 HCT 30.1 10/24/2019 PLT 73 10/24/2019 MCV 90.9 10/24/2019 RDW 46.0 10/24/2019 Lab Results Component Value Date TSH 1.72 10/13/2019 TSH 0.47 07/18/2019 TSH 1.33 04/21/2019 No results found for: JESSICA Shae Glycemic Team - [facility] Endocrinology, Diabetes, & Clinical Nutrition Glycemic Team Phone (8AM-5PM): [phone] Glycemic Team Pager: [phone] I spent 18 minutes in the care of this patient. Greater than 50% of the time was spent cou nseling regarding management of diabetes in the hospital and coordination of care with floor nurses and team. This patient s assessment and plan were discussed with consult attending Dr. Odom . vgeny Daigle DO - 10:49 AM PST Cardiology Non-Visit Note Patient seen by Cardiology on 10/22/2019 for atrial tachycardia. HR is still elevated and pat ient remains asymptomatic and hemodynamically stable. Due to elevated HR and atrial tachycar gale recommend continued uptitration of BB from 12.5 mg bid to help control HR as BP tolerate s. Evgeny Daigle Cardiovascular Medicine Fellow [facility] Cardiovascular [place] [facility], [place] Associated attestation - Karlo Magallon MD - 10/27/2019 9:47 AM PSTCardiology Attendin bautista Attestation: I discussed and formulated the plan with the Treatment Team. I agree with the documentatio n and have noted any additions or changes. Chucho Magallon M.D. [employer] Division of Cardiovascular Medicine [facility] Jovany Pulliam ACNP - 10/24/2019 1:58 PM PSTFormatting of this note might be different fr om the original. INPATIENT GLYCEMIC TEAM CONSULT FOLLOW-UP NOTE ASSESSMENT: 54 y.o. male with a Type 2 diabetes (Hgb A1c 8.1% 07/17/19) ESLD 2/2 EtOH s/p OLTx 08/16. Quintana d course c/b SVT and HRS/KAR previously on HD now with chronic insufficiency but off HD. Pt is re-admitted for failure to thrive, depression and hyperkalemia. We are consulted for glyc emic management. AM CBG outside target range, increased basal insulin for tonight. Based on response to full prandial dose yesterday morning, prandial insulin doses were increased. Patient anticipatin g discharge in the next couple days, with increasing insulin requirements we anticipate danisha ent will need to go home on once daily insulin. This was discussed with the patient and he s tated he felt comfortable with this discharge plan. Discharge recommendations communicated t o primary team. If patient discharges to a nursing facility, continue inpatient regimen. Will continue to monitor closely for continuing glycemic regimen modification needs. Target glucose : Fasting and before meals <140, Random <180 Home Rx : NPH 17 units qAM, NPH 7 units qHS, Lispro 5 units with breakfast, Lispro 10 un its with lunch, Lispro 12 units with dinner Diet : Regular Current Rx: : Glargine 10 units qHS, lispro 5 units TID AC, CBG ACHS + Moderate SS IV fluids : N/A Steroids : Prednisone 5 mg qAM - last dose 10/20/19 Insulin infusion requirement : N/A RECOMMENDATIONS: These orders have been entered as orders per preference of the primary team: While inpatient: Lispro 5 units TID AC Glargine 10 =>12 units qHS CBG ACHS + Moderate SSI At discharge to facility: Continue inpatient regimen At discharge to home: Stop subcutaneous insulin at home (NPH 17 units qAM, NPH 7 units qHS, Lispro 5 units wit h breakfast, Lispro 10 units with lunch, Lispro 12 units with dinner) Start Glimepiride 1mg qAM (every morning). Check your blood glucose every morning before eating and every night before bed. If your AM CBG is > 140 mg/dL or PM CBG >180 mg/dL incre ase your dose of Glimepiride to 2mg qAM and contact your PCP Start Glargine 10 units qHS (every evening) and adjust dose based on your morning CBG us ing Glargine Scale Your target morning blood sugar is 80-130. To reach this target you should change your insulin dose every three days. You will probabl y need to adjust several times at home If you morning glucose level is higher than this you should increase your insulin dose. If your morning blood sugar level is lower than this you should decrease your dose. Use the f ollowing chart to help adjust your glargine insulin dose: Average Morning blood sugar for 3 days Change in glargine insulin dose Over 180 Increase by 5 units 151-180 Increase by 3 units 131-150 Increase by 1 unit 80-130 No change in insulin dose 60-79 Decrease insulin by 2 units Less 60 Decrease insulin by 4 units Follow-up with your primary care doctor within 1 week for further glycemic management Call your doctor with a blood sugar <70 or >180. If you have symptoms of hypoglycemia (sweating, fast heart rate, lightheadedness, hunger , fatigue, nausea, confusion, anxiety, combativeness) check your blood sugar. If it is <70, drink juice with sugar and check again in 30 minutes. Thank you for the opportunity to contribute to this patient's care. For glycemic needs, contact glycemic team from 8AM-5PM ([phone]) . Outside of that t [place], all questions should be directed to the primary team. INTERVAL HISTORY: Diabetes related history: Prior diagnosis of diabetes? : Y Type of diabetes: : T2DM Duration of diabetes: : 4 months Family hx of DM? : N On insulin at home? : Y HbA1C : Lab Results Component Value Date A1C 8.1 (H) 07/17/2019 On steroids? : Y - Prednisone 5mg qAM Anti-psychotics? : N KAR/CKD? : Y Liver failure? : Y- s/p OLTx 08/16 CHF? : N Pancreatic conditions? : N Diabetes medications prior to admission: : NPH, Lispro ROS: A systems ROS essentially negative except for what is mentioned as positive in HPI or elsew here in this note. PMHx: Past Medical History: Diagnosis Date Cirrhosis (HCC) CKD (chronic kidney disease) PSurgHx: Past Surgical History Procedure Laterality Date Leg surgery FamHx: Family History Problem Relation Liver cancer Neg Hx SOCIAL Hx: Social History Socioeconomic History Marital status: Single [...] file Gets together: Not on file Attends worship service: Not on file Active member of club or organization: Not on file Attends meetings of clubs or organizations: Not on file Relationship status: Not on file Other Topics Concern Not on file Social History Narrative Not on file HOME MEDICATIONS: Medications Prior to Admission Medication Sig Dispense Refill Last Dose Alcohol Swabs (ALCOHOL PREP SWABS) topical pads, medicated Apply 1 each to affected are a five times daily. Use as directed. 200 each 1 10/09/2019 amiodarone 200 mg oral tablet Take 1 tablet by mouth once daily. Indications: Preventio n of Ventricular Fibrillation 30 tablet 1 10/09/2019 aspirin EC 325 mg oral tablet,delayed release (DR/EC) Take 1 tablet by mouth once daily . 100 tablet 5 10/09/2019 atovaquone 750 mg/5 mL oral suspension Take 10 mL by mouth once daily. 150 mL 2 019 Blood Sugar Diagnostic (FREESTYLE LITE STRIPS) miscellaneous (misc) strip Test blood abreu gar four times daily (before each meal and at bedtime). Use as directed. Indications: type 2 diabetes mellitus 150 each 5 10/09/2019 Blood-Glucose Meter (FREESTYLE LITE METER) miscellaneous (misc) kit Use as directed. Us e as directed. 1 each 0 10/09/2019 calcium carbonate 500 mg elemental (1,250 mg total salt) oral tablet Take 2 tablets by mouth once daily at bedtime. Indications: osteoporosis prevention 100 tablet 5 10/09/2019 chlorhexidine 0.12 % mucous membrane mouthwash Use cotton swab to dab chlorhexdine and apply gently to wound. 473 mL 2 10/09/2019 Cholecalciferol (Vitamin D3) 2,000 unit oral tablet Take 1 tablet by mouth once daily. 10/09/2019 insulin lispro (Human) 100 unit/mL subcutaneous insulin pen Inject 5 units under the sk in with breakfast, 10 units under the skin with lunch, 12 units under the skin with dinner. Max dose = 56 units per day Indications: type 2 diabetes mellitus 15 mL 1 10/09/2019 Insulin Mesilla (Disposable) (COMFORT EZ PEN NEEDLES) 31 gauge x 5/16" miscellaneous (m isc) needle Use as directed for 5 insulin injections per day. 150 each 5 10/09/2019 insulin NPH 100 unit/mL (3 mL) subcutaneous [...] evening. Indications: type 2 diabetes isela itus.) 15 mL 1 10/09/2019 lancets (FREESTYLE LANCETS) 28 gauge miscellaneous (misc) misc Test blood sugar four ti mes daily (before each meal and at bedtime). Indications: type 2 diabetes mellitus 150 each 5 10/09/2019 magnesium oxide 250 mg elemental oral tablet Take 2 tablets by mouth two times daily. 1 00 tablet 5 10/09/2019 metoprolol succinate 25 mg oral tablet extended release 24 hr Take 0.5 tablets by mouth once daily. Indications: high blood pressure 15 tablet 5 10/09/2019 [] mirtazapine 15 mg oral tablet Take 1 tablet by mouth once daily in the [facility] for 14 days. Indications: lack of appetite 14 tablet 0 10/09/2019 Miscellaneous Medical Supply miscellaneous (misc) misc Chlorhexidine prep sticks (small ) 30 each 2 10/09/2019 multivitamin oral tablet Take 1 tablet by mouth once daily. Indications: Treatment To P revent Vitamin Deficiency 100 tablet 5 10/09/2019 mycophenolate 250 mg oral capsule Take 4 capsules by mouth two times daily. Indications : liver transplant rejection prevention 240 capsule 5 10/09/2019 omeprazole 20 mg oral capsule,delayed release(DR/EC) Take 1 capsule by mouth once daily . Indications: heartburn 30 capsule 5 10/09/2019 predniSONE 5 mg oral tablet Take 1 tablet by mouth once daily. Indications: liver trans plant rejection prevention 120 tablet 5 10/09/2019 tacrolimus 1 mg oral capsule Take 2 capsules by mouth two times daily. Indications: niels er transplant rejection prevention 300 capsule 5 10/09/2019 valGANciclovir 450 mg oral tablet Take 1 tablet by mouth three times weekly (on Saturday, Saturday and Saturday). Indications: viral infection prevention 12 tablet 0 CURRENT MEDICATIONS: Current Facility-Administered Medications: acetaminophen (TYLENOL) tablet 325 mg, 325 mg, o ral, Q4H PRN, Charlene Leonard MD, 325 mg at 10/17/19 1014 amiodarone (CORDARONE) tablet 200 mg, 200 mg, oral, DAILY, Charlene Leonard MD, 200 mg at 0 10/24/19 0814 aspirin EC tablet 325 mg, 325 mg, oral, DAILY, Charlene Leonard MD, 325 mg at 10/24/19 0814 atovaquone (MEPRON) suspension 1,500 mg, 1,500 mg, oral, DAILY, Charlene Leonard MD, 1,500 mg at 10/24/19 1229 dextrose 50 % in water IV 25 mL, 25 mL, intravenous, PRN, Charlene Leonard MD enoxaparin (LOVENOX) injection 30 mg, 30 mg, subcutaneous, QPM, Charlene Leonard MD, 30 mg at 10/23/19 2144 fludrocortisone (FLORINEF) tablet 0.1 mg, 0.1 mg, oral, DAILY, Nieves Small MD, 0.1 mg a t 10/24/19 0814 glucagon (GLUCAGEN) injection 1 mg, 1 mg, intramuscular, PRN, Charlene Leonard MD glucose chewable tablet 16 g, 16 g, oral, PRN, Charlene Leonard MD insulin glargine (LANTUS) injection 12 Units, 12 Units, subcutaneous, HS, Jovany Pulliam, AC [employer] insulin lispro (HUMALOG) injection 1-16 Units, 1-16 Units, subcutaneous, QID, Erich Hernandez Jr., GRADER MARKER, 2 Units at 10/24/19 1344 insulin lispro (HUMALOG) injection 5 Units, 5 Units, subcutaneous, TID W/MEALS, Jovany Gold il, ACNP, 5 Units at 10/24/19 1344 magnesium oxide (MAG-OX) tablet 400 mg, 400 mg, oral, BID, Rod Weeks MD, 400 mg at 10/24/19 0814 metoprolol tartrate (LOPRESSOR) tablet 12.5 mg, 12.5 mg, oral, BID, Charlene Leonard MD, 12 .5 mg at 10/24/19 0814 mirtazapine (REMERON) tablet 30 mg, 30 mg, oral, QPM, Luan Garcia MD, 30 mg at 10/23/192142 mycophenolate (CELLCEPT) capsule 1,000 mg, 1,000 mg, oral, BID (MMF), Charlene Leonard MD, 1,000 mg at 10/24/19 0814 ondansetron (ZOFRAN) injection 4 mg, 4 mg, intravenous, Q12H PRN, Farrukh Ceron MD, 4 mg a t 10/22/19 1421 ondansetron ODT (ZOFRAN ODT) tablet 4 mg, 4 mg, oral, Q8H PRN, Farrukh Ceron MD, 4 mg at 0 10/22/19 215 tacrolimus capsule 3 mg, 3 mg, oral, BID, Nieves Small MD, 3 mg at 10/24/19 0814 valGANciclovir (VALCYTE) tablet 450 mg, 450 mg, oral, DAILY, Rod Weeks MD , 450 mg at 10/24/19 0814 ALLERGIES: Allergies Allergen Reactions Doxycycline Hives and Rash PHYSICAL EXAM: Last Vitals: BP 117/73 (BP Location: Right upper arm, Patient Position: Lying on back) | Pulse 126 | Temp 36.6 C (97.9 F) (Oral) | Resp 16 | Ht 1.803 m (5' 11") | Wt 79.9 k g (176 lb 1.6 oz) | SpO2 99% | BMI 24.56 kg/m | BSA 2 m General: No distress, resting in bed Resp: eupneic LAB DATA: Lab Results Component Value Date A1C 8.1 07/17/2019 A1C <3.5 04/21/2019 Last 8 POC CBG's Lab Results Component Value Date GLU 150 (H) 10/24/2019 GLU 149 (H) 10/24/2019 GLU 129 (H) 10/24/2019 GLU 150 (H) 10/23/2019 GLU 148 (H) 10/23/2019 GLU 132 (H) 10/23/2019 GLU 158 (H) 10/23/2019 GLU 130 (H) 10/23/2019 Recent Labs 10/20/19 0602 10/21/19 0940 10/22/19 0544 AST 10 13 9 ALT 18 19 16 TBILI 0.2* 0.3 0.3 AP 51* 52* 48* ALB 3.6 3.8 3.3* TP 6.2* 6.4 5.9* Recent Labs 10/20/19 0602 10/21/19 0940 10/22/19 0544 10/24/19 0103 10/24/19 0755 10/24/19 1339 GLU 116* < > 187* < > 124* < > 129* 149* 150* BUN 54* -- 47* -- 46* -- -- -- -- CR 2.29* -- 1.95* -- 2.13* -- -- -- -- ALB 3.6 -- 3.8 -- 3.3* -- -- -- -- CA 9.6 -- 9.7 -- 9.3 -- -- -- -- NA 141 -- 141 -- 142 -- -- -- -- K 5.0 -- 4.6 -- 4.8 -- -- -- -- CL 107 -- 108 -- 108 -- -- -- -- BICARB 27 -- 29 -- 30 -- -- -- -- < > = values in this interval not displayed. Lab Results Component Value Date WBC 3.15 10/22/2019 HB 10.1 10/22/2019 HCT 32.2 10/22/2019 PLT 70 10/22/2019 MCV 91.2 10/22/2019 RDW 46.1 10/22/2019 Lab Results Component Value Date TSH 1.72 10/13/2019 TSH 0.47 07/18/2019 TSH 1.33 04/21/2019 No results found for: JESSICA Shea Glycemic Team - [facility] Endocrinology, Diabetes, & Clinical Nutrition Glycemic Team Phone (8AM-5PM): [phone] Glycemic Team Pager: [phone] I spent 27 minutes in the care of this patient. Greater than 50% of the time was spent cou nseling regarding management of diabetes in the hospital and coordination of care with floor nurses and team. This patient s assessment and plan were discussed with consult attending Dr. Odom . Jovany Harrison ACNP - 10/23/2019 12:58 PM PST INPATIENT GLYCEMIC TEAM CONSULT FOLLOW-UP NOTE ASSESSMENT: 54 y.o. male with a Type 2 diabetes (Hgb A1c 8.1% 07/17/19) ESLD 2/2 EtOH s/p OLTx 08/16. Quintana d course c/b SVT and HRS/KAR previously on HD now with chronic insufficiency but off HD. Pt is re-admitted for failure to thrive, depression and hyperkalemia. We are consulted for glyc emic management. AM CBG within target range, recommend continuing current basal insulin regimen. Patient hyp erglycemic after meals, patient eats slowly and nursing has been giving half doses in respon se. Based on response to full prandial dose this morning, will increase prandial insulin dos es. Patient anticipating discharge in the next couple days. Based on insulin requirements wh ile in the hospital, patient should be able to discharge to home on oral medications to [facility]. If patient discharges to a nursing facility, continue inpatient regimen. Recommend Cortrosyn stimulation test with discontinuing prednisone to make sure he does not have secondary adrenal insufficiency due to extended prednisone use. Will continue to monitor closely for continuing glycemic regimen modification needs. Target glucose : Fasting and before meals <140, Random <180 Home Rx : NPH 17 units qAM, NPH 7 units qHS, Lispro 5 units with breakfast, Lispro 10 un its with lunch, Lispro 12 units with dinner Diet : Regular Current Rx: : Glargine 10 units qHS, lispro 4 units TID AC, CBG ACHS + Moderate SS IV fluids : N/A Steroids : Prednisone 5 mg qAM - last dose 10/20/19 Insulin infusion requirement : N/A RECOMMENDATIONS: These orders have been entered as orders per preference of the primary team: While inpatient: Increase Lispro 4=>5 units TID AC Glargine 10 units qHS Recommend Cortrosyn stim test (not ordered, but was discussed with team) CBG ACHS + Moderate SSI At discharge to facility: Continue inpatient regimen At discharge to home: Stop subcutaneous insulin at home (NPH 17 units qAM, NPH 7 units qHS, Lispro 5 units wit h breakfast, Lispro 10 units with lunch, Lispro 12 units with dinner) Start Glimepiride 1mg qAM. Check your blood glucose every morning before eating and ever y night before bed. If your AM CBG is > 140 mg/dL or PM CBG >180 mg/dL increase your dose of Glimepiride to 2mg qAM and contact your PCP Follow-up with your primary care doctor within 1 week for further glycemic management Call your doctor with a blood sugar <70 or >180. If you have symptoms of hypoglycemia (sweating, fast heart rate, lightheadedness, hunger , fatigue, nausea, confusion, anxiety, combativeness) check your blood sugar. If it is <70, drink juice with sugar and check again in 30 minutes. Thank you for the opportunity to contribute to this patient's care. For glycemic needs, contact glycemic team from 8AM-5PM ([phone]) . Outside of that t [place], all questions should be directed to the primary team. INTERVAL HISTORY: Diabetes related history: Prior diagnosis of diabetes? : Y Type of diabetes: : T2DM Duration of diabetes: : 4 months Family hx of DM? : N On insulin at home? : Y HbA1C : Lab Results Component Value Date A1C 8.1 (H) 07/17/2019 On steroids? : Y - Prednisone 5mg qAM Anti-psychotics? : N KAR/CKD? : Y Liver failure? : Y- s/p OLTx 08/16 CHF? : N Pancreatic conditions? : N Diabetes medications prior to admission: : NPH, Lispro ROS: A systems ROS essentially negative except for what is mentioned as positive in HPI or elsew here in this note. PMHx: Past Medical History: Diagnosis Date Cirrhosis (HCC) CKD (chronic kidney disease) PSurgHx: Past Surgical History Procedure Laterality Date Leg surgery FamHx: Family History Problem Relation Liver cancer Neg Hx SOCIAL Hx: Social History Socioeconomic History Marital status: Single [...] file Gets together: Not on file Attends worship service: Not on file Active member of club or organization: Not on file Attends meetings of clubs or organizations: Not on file Relationship status: Not on file Other Topics Concern Not on file Social History Narrative Not on file HOME MEDICATIONS: Medications Prior to Admission Medication Sig Dispense Refill Last Dose Alcohol Swabs (ALCOHOL PREP SWABS) topical pads, medicated Apply 1 each to affected are a five times daily. Use as directed. 200 each 1 10/09/2019 amiodarone 200 mg oral tablet Take 1 tablet by mouth once daily. Indications: Preventio n of Ventricular Fibrillation 30 tablet 1 10/09/2019 aspirin EC 325 mg oral tablet,delayed release (DR/EC) Take 1 tablet by mouth once daily . 100 tablet 5 10/09/2019 atovaquone 750 mg/5 mL oral suspension Take 10 mL by mouth once daily. 150 mL 2 019 Blood Sugar Diagnostic (FREESTYLE LITE STRIPS) miscellaneous (misc) strip Test blood abreu gar four times daily (before each meal and at bedtime). Use as directed. Indications: type 2 diabetes mellitus 150 each 5 10/09/2019 Blood-Glucose Meter (FREESTYLE LITE METER) miscellaneous (misc) kit Use as directed. Us e as directed. 1 each 0 10/09/2019 calcium carbonate 500 mg elemental (1,250 mg total salt) oral tablet Take 2 tablets by mouth once daily at bedtime. Indications: osteoporosis prevention 100 tablet 5 10/09/2019 chlorhexidine 0.12 % mucous membrane mouthwash Use cotton swab to dab chlorhexdine and apply gently to wound. 473 mL 2 10/09/2019 Cholecalciferol (Vitamin D3) 2,000 unit oral tablet Take 1 tablet by mouth once daily. 10/09/2019 insulin lispro (Human) 100 unit/mL subcutaneous insulin pen Inject 5 units under the sk in with breakfast, 10 units under the skin with lunch, 12 units under the skin with dinner. Max dose = 56 units per day Indications: type 2 diabetes mellitus 15 mL 1 10/09/2019 Insulin Mesilla (Disposable) (COMFORT EZ PEN NEEDLES) 31 gauge x 5/16" miscellaneous (m isc) needle Use as directed for 5 insulin injections per day. 150 each 5 10/09/2019 insulin NPH 100 unit/mL (3 mL) subcutaneous [...] evening. Indications: type 2 diabetes isela itus.) 15 mL 1 10/09/2019 lancets (FREESTYLE LANCETS) 28 gauge miscellaneous (misc) misc Test blood sugar four ti mes daily (before each meal and at bedtime). Indications: type 2 diabetes mellitus 150 each 5 10/09/2019 magnesium oxide 250 mg elemental oral tablet Take 2 tablets by mouth two times daily. 1 00 tablet 5 10/09/2019 metoprolol succinate 25 mg oral tablet extended release 24 hr Take 0.5 tablets by mouth once daily. Indications: high blood pressure 15 tablet 5 10/09/2019 [] mirtazapine 15 mg oral tablet Take 1 tablet by mouth once daily in the [facility] for 14 days. Indications: lack of appetite 14 tablet 0 10/09/2019 Miscellaneous Medical Supply miscellaneous (misc) misc Chlorhexidine prep sticks (small ) 30 each 2 10/09/2019 multivitamin oral tablet Take 1 tablet by mouth once daily. Indications: Treatment To P revent Vitamin Deficiency 100 tablet 5 10/09/2019 mycophenolate 250 mg oral capsule Take 4 capsules by mouth two times daily. Indications : liver transplant rejection prevention 240 capsule 5 10/09/2019 omeprazole 20 mg oral capsule,delayed release(DR/EC) Take 1 capsule by mouth once daily . Indications: heartburn 30 capsule 5 10/09/2019 predniSONE 5 mg oral tablet Take 1 tablet by mouth once daily. Indications: liver trans plant rejection prevention 120 tablet 5 10/09/2019 tacrolimus 1 mg oral capsule Take 2 capsules by mouth two times daily. Indications: niels er transplant rejection prevention 300 capsule 5 10/09/2019 valGANciclovir 450 mg oral tablet Take 1 tablet by mouth three times weekly (on Saturday, Saturday and Saturday). Indications: viral infection prevention 12 tablet 0 CURRENT MEDICATIONS: Current Facility-Administered Medications: acetaminophen (TYLENOL) tablet 325 mg, 325 mg, o ral, Q4H PRN, Charlene Leonard MD, 325 mg at 10/17/19 1014 amiodarone (CORDARONE) tablet 200 mg, 200 mg, oral, DAILY, Charlene Leonard MD, 200 mg at 0 10/23/19 0739 aspirin EC tablet 325 mg, 325 mg, oral, DAILY, Charlene Leonard MD, 325 mg at 10/23/19 0738 atovaquone (MEPRON) suspension 1,500 mg, 1,500 mg, oral, DAILY, Charlene Leonard MD, 1,500 mg at 10/23/19 0739 dextrose 50 % in water IV 25 mL, 25 mL, intravenous, PRN, Charlene Leonard MD enoxaparin (LOVENOX) injection 30 mg, 30 mg, subcutaneous, QPM, Charlene Leonard MD, 30 mg at 10/22/19 2158 fludrocortisone (FLORINEF) tablet 0.1 mg, 0.1 mg, oral, DAILY, Nieves Small MD, 0.1 mg a t 10/23/19 0739 glucagon (GLUCAGEN) injection 1 mg, 1 mg, intramuscular, PRN, Charlene Leonard MD glucose chewable tablet 16 g, 16 g, oral, PRN, Charlene Leonard MD insulin glargine (LANTUS) injection 10 Units, 10 Units, subcutaneous, HS, Jovany Pulliam, AC [employer], 10 Units at 10/22/19 2201 insulin lispro (HUMALOG) injection 1-16 Units, 1-16 Units, subcutaneous, QID, Erich Hernandez Jr., GRADER MARKER, 2 Units at 10/23/19 0030 insulin lispro (HUMALOG) injection 4 Units, 4 Units, subcutaneous, TID W/MEALS, Jovany Gold il, ACNP, 4 Units at 10/23/19 0737 magnesium oxide (MAG-OX) tablet 400 mg, 400 mg, oral, BID, Rod Weeks MD, 400 mg at 10/23/19 0739 metoprolol tartrate (LOPRESSOR) tablet 12.5 mg, 12.5 mg, oral, BID, Charlene Leonard MD, 12 .5 mg at 10/23/19 0738 mirtazapine (REMERON) tablet 30 mg, 30 mg, oral, QPM, Luan Garcia MD, 30 mg at 10/22/19 215 mycophenolate (CELLCEPT) capsule 1,000 mg, 1,000 mg, oral, BID (MMF), Charlene Leonard MD, 1,000 mg at 10/23/19 0739 ondansetron (ZOFRAN) injection 4 mg, 4 mg, intravenous, Q12H PRN, Farrukh Ceron MD, 4 mg a t 10/22/19 1421 ondansetron ODT (ZOFRAN ODT) tablet 4 mg, 4 mg, oral, Q8H PRN, Farrukh Ceron MD, 4 mg at 0 10/22/192156 tacrolimus capsule 3 mg, 3 mg, oral, BID, Nieves Small MD, 3 mg at 10/23/19 0738 valGANciclovir (VALCYTE) tablet 450 mg, 450 mg, oral, DAILY, Rod Weeks MD , 450 mg at 10/23/19 0738 ALLERGIES: Allergies Allergen Reactions Doxycycline Hives and Rash PHYSICAL EXAM: Last Vitals: BP 115/69 (BP Location: Right upper arm, Patient Position: Lying on back) | Pulse 72 | Temp 36.7 C (98.1 F) (Oral) | Resp 16 | Ht 1.803 m (5' 11") | Wt 79.5 kg (175 lb 3.2 oz) | SpO2 96% | BMI 24.44 kg/m | BSA 2 m General: No distress Resp: unlabored LAB DATA: Lab Results Component Value Date A1C 8.1 07/17/2019 A1C <3.5 04/21/2019 Last 8 POC CBG's Lab Results Component Value Date GLU 130 (H) 10/23/2019 GLU 223 (H) 10/22/2019 GLU 187 (H) 10/22/2019 GLU 140 (H) 10/22/2019 GLU 106 (H) 10/22/2019 GLU 124 (H) 10/22/2019 GLU 145 (H) 10/21/2019 GLU 133 (H) 10/21/2019 Recent Labs 10/20/19 0610/21/19 0940 10/22/19 0544 AST 10 13 9 ALT 18 19 16 TBILI 0.2* 0.3 0.3 AP 51* 52* 48* ALB 3.6 3.8 3.3* TP 6.2* 6.4 5.9* Recent Labs 10/20/1960110/21/1993910/22/1944 10/22/19203910/22/19 2348 10/23/19 0726 GLU 116* < > 187* < > 124* < > 187* 223* 130* BUN 54* -- 47* -- 46* -- -- -- -- CR 2.29* -- 1.95* -- 2.13* -- -- -- -- ALB 3.6 -- 3.8 -- 3.3* -- -- -- -- CA 9.6 -- 9.7 -- 9.3 -- -- -- -- NA 141 -- 141 -- 142 -- -- -- -- K 5.0 -- 4.6 -- 4.8 -- -- -- -- CL 107 -- 108 -- 108 -- -- -- -- BICARB 27 -- 29 -- 30 -- -- -- -- < > = values in this interval not displayed. Lab Results Component Value Date WBC 3.15 10/22/2019 HB 10.1 10/22/2019 HCT 32.2 10/22/2019 PLT 70 10/22/2019 MCV 91.2 10/22/2019 RDW 46.1 10/22/2019 Lab Results Component Value Date TSH 1.72 10/13/2019 TSH 0.47 07/18/2019 TSH 1.33 04/21/2019 No results found for: JESSICA Shea Glycemic Team - [facility], Diabetes, & Clinical Nutrition Glycemic Team Phone (8AM-5PM): [phone] Glycemic Team Pager: [phone] I spent 19 minutes in the care of this patient. Greater than 50% of the time was spent cou nseling regarding management of diabetes in the hospital and coordination of care with floor nurses and team. This patient s assessment and plan were discussed with consult attending Dr. Odom . Sudha Harvey M D - 10/22/2019 2:07 PM PST Cardiology Consult Follow-Up Note Patient ID: 54 y.o. male with a history of end stage liver disease 2/2 alcoholic cirrhosiswith liver tr ansplant (OLT) 08/16, hx of SVT and Afib not on anti-coagulation (CHADS2-VASC:1) who is admi tted for failure to thrive and acute renal injury and referred for atrial tachycardia. Interval Events/Subjective: - HR downed to 100 at 9PM, then went down to 70s a few hours later. Current Medications: acetaminophen (TYLENOL) tablet 325 mg, 325 mg, oral, Q4H PRN amiodarone (CORDARONE) tablet 200 mg, 200 mg, oral, DAILY aspirin EC tablet 325 mg, 325 mg, oral, DAILY atovaquone (MEPRON) suspension 1,500 mg, 1,500 mg, oral, DAILY dextrose 50 % in water IV 25 mL, 25 mL, intravenous, PRN enoxaparin (LOVENOX) injection 30 mg, 30 mg, subcutaneous, QPM fludrocortisone (FLORINEF) tablet 0.1 mg, 0.1 mg, oral, DAILY glucagon (GLUCAGEN) injection 1 mg, 1 mg, intramuscular, PRN glucose chewable tablet 16 g, 16 g, oral, PRN insulin glargine (LANTUS) injection 10 Units, 10 Units, subcutaneous, HS insulin lispro (HUMALOG) injection 1-16 Units, 1-16 Units, subcutaneous, QID insulin lispro (HUMALOG) injection 4 Units, 4 Units, subcutaneous, TID W/MEALS magnesium oxide (MAG-OX) tablet 400 mg, 400 mg, oral, BID metoprolol tartrate (LOPRESSOR) tablet 12.5 mg, 12.5 mg, oral, BID mirtazapine (REMERON) tablet 30 mg, 30 mg, oral, QPM mycophenolate (CELLCEPT) capsule 1,000 mg, 1,000 mg, oral, BID (MMF) ondansetron (ZOFRAN) injection 4 mg, 4 mg, intravenous, Q12H PRN ondansetron ODT (ZOFRAN ODT) tablet 4 mg, 4 mg, oral, Q8H PRN tacrolimus capsule 2 mg, 2 mg, oral, BID [START ON 10/23/2019] valGANciclovir (VALCYTE) tablet 450 mg, 450 mg, oral, DAILY Physical Exam Last Vitals: Blood Pressure 124/72 (BP Location: Right upper arm, Patient Position: Lying o n back) | Pulse 68 | Temperature 36.9 C (98.4 F) (Oral) | Respiration 16 | Height 1. 803 m (5' 11") | Weight 78.6 kg (173 lb 4.8 oz) | Oxygen Saturation 97% | Body Mass Index 24.17 kg/m | Body Surface Area 1.98 m 24 Hour Vital Min/Max: Systolic (24hrs), Av , Min:101 , Max:124 Diastolic (24hrs), Av, Min:59, Max:83 Pulse Min: 68 Max: 126 Temp Min: 36.5 C (97.7 F) Max: 36.9 C (98.4 F) Resp Min: 16 Max: 20 SpO2 Min: 96 % Max: 99 % Intake/Output Summary (Last 24 hours) at 10/22/2019 1407 Last data filed at 10/22/2019 1200 Gross per 24 hour Intake 1355 ml Output 400 ml Net 955 ml General: cooperative, tired-appearing middle-aged man sitting in bed in NAD CV: regular rate and rhythm, nl S1/2, no m/r/g, JVD at clavicle. Resp: CTAB, no rhonchi/rales/wheezing. Abd: soft, + ope scar, non-distended, + BS, non-tender to percussion/palpation, no rebound tenderness. Ext: warm without edema Labs/Studies: Chemistries: Last 72 Hours (or 3 results): Recent Labs 10/20/19 0602 10/21/19 0940 10/22/19 0544 10/22/19 0714 10/22/19 1335 NA 141 -- 141 -- 142 -- -- K 5.0 -- 4.6 -- 4.8 -- -- CL 107 -- 108 -- 108 -- -- BICARB 27 -- 29 -- 30 -- -- BUN 54* -- 47* -- 46* -- -- CR 2.29* -- 1.95* -- 2.13* -- -- GLU 116* < > 187* < > 124* 106* 140* CA 9.6 -- 9.7 -- 9.3 -- -- MG 1.8 -- 1.6 -- 1.7 -- -- PO4 5.4* -- 4.2 -- 4.8* -- -- < > = values in this interval not displayed. CBC with diff last 72 hours (or 3 results) Recent Labs 10/20/19 0602 10/21/19 1215 10/22/19 0544 WBC 3.24* 3.12* 3.15* HB 9.6* 9.9* 10.1* HCT 30.2* 30.6* 32.2* PLT 64* 68* 70* Echo: 1. The left ventricular size is normal. 2. The LV function is normal. 3. The aortic valve is trileaflet and moderately calcified. Mildly elevated aortic valve gradients in the setting of high stroke volume. Calculated aortic valve area is normal today . 4. RV cavity size is mildly enlarged. RV wall thickness is normal. RV global systolic fun ction is normal. The estimated right ventricular systolicpressure is mildly elevated (RVSP = 40.9 mmHg). 5. Compared to the most recent exam dated 04/21/2019, there are no significantchanges. Assessment/Recommendations: 54 y.o. male with a history of end stage liver disease 2/2 alcoholic cirrhosiswith liver tr ansplant (OLT) 08/16, hx of SVT and Afib not on anti-coagulation (CHADS2-VASC:1) who is admi tted for failure to thrive and acute renal injury and referred for atrial tachycardia. # Atrial tachycardia Tachycardia subsided and HR in 60-70s at rest, though his baseline. Anticipate he will have other episodes, which is self-limiting and can be observed without acute treatment. - Continue amiodarone PO 200mg daily - Continue metoprolol tart PO 12.5mg BID; consider switching to metop succi 25mg daily or 1 2.5mg BID - HR should be 60-low 70s at rest. If rising to 110-150 bpm, please obtain EKG to confirm t he recurrence of atrial tachycardia and monitor clinically until it persists for >48 hours. If this happens, please re-consult cardiology. Sudha Franklin MD Internal medicine resident ([id number]) This patient was interviewed and examined by my attending Dr. Magallon, who agrees with the assessment and plan unless otherwise noted. Associated attestation - Karlo Magallon MD - 10/22/2019 7:12 PM PSTCardiology Attendin g Attestation: I saw the patient, performed pertinent parts of the physical examination and reviewed histo rical data. I agree with the documentation and have noted any additions or changes. Cardiology consult team will not see daily. Chucho Magallon M.D. Coffee Shop Attendant [facility] Cardiovascular [place] [facility] [place] Jovany Pulliam ACNP - 10/22/2019 10:17 AM PSTFormatting of this note might be different fr om the original. INPATIENT GLYCEMIC TEAM CONSULT FOLLOW-UP NOTE ASSESSMENT: 54 y.o. male with a Type 2 diabetes (Hgb A1c 8.1% 07/17/19) ESLD 2/2 EtOH s/p OLTx 08/16. Quintana d course c/b SVT and HRS/KAR previously on HD now with chronic insufficiency but off HD. Pt is re-admitted for failure to thrive, depression and hyperkalemia. We are consulted for glyc emic management. AM CBG within target range, recommend continuing current basal insulin regimen. Patient did not receive any prandial insulin yesterday and was slightly outside of target range. Patien t reports nausea and emesis that has since improved. Will continue to monitor response to pr andial insulin today. Patient anticipating discharge in the next couple days. Based on insul in requirements while in the hospital, patient should be able to discharge to home on oral m edications to manage diabetes. If patient discharges to a nursing facility, continue inpatie nt regimen. Recommend Cortrosyn stimulation test with discontinuing prednisone to make sure he does not have secondary adrenal insufficiency due to extended prednisone use. Will continue to monitor closely for continuing glycemic regimen modification needs. Target glucose : Fasting and before meals <140, Random <180 Home Rx : NPH 17 units qAM, NPH 7 units qHS, Lispro 5 units with breakfast, Lispro 10 un its with lunch, Lispro 12 units with dinner Diet : Regular Current Rx: : Glargine 10 units qHS, lispro 4 units TID AC, moderate supplemental insuli n IV fluids : N/A Steroids : Prednisone 5 mg qAM - last dose 10/20/19 Insulin infusion requirement : N/A RECOMMENDATIONS: These orders have been entered as orders per preference of the primary team: While inpatient: Lispro 4 units TID AC Glargine 10 units qHS Recommend Cortrosyn stim test (not ordered, but was discussed with team) CBG ACHS + Moderate SSI At discharge to facility: Continue inpatient regimen At discharge to home: Stop subcutaneous insulin at home (NPH 17 units qAM, NPH 7 units qHS, Lispro 5 units wit h breakfast, Lispro 10 units with lunch, Lispro 12 units with dinner) Start Glimepiride 1mg qAM. Check your blood glucose every morning before eating and ever y night before bed. If your AM CBG is > 140 mg/dL or PM CBG >180 mg/dL increase your dose of Glimepiride to 2mg qAM and contact your PCP Follow-up with your primary care doctor within 1 week for further glycemic management Call your doctor with a blood sugar <70 or >180. If you have symptoms of hypoglycemia (sweating, fast heart rate, lightheadedness, hunger , fatigue, nausea, confusion, anxiety, combativeness) check your blood sugar. If it is <70, drink juice with sugar and check again in 30 minutes. Thank you for the opportunity to contribute to this patient's care. For glycemic needs, contact glycemic team from 8AM-5PM ([phone]) . Outside of that t [place], all questions should be directed to the primary team. INTERVAL HISTORY: Diabetes related history: Prior diagnosis of diabetes? : Y Type of diabetes: : T2DM Duration of diabetes: : 4 months Family hx of DM? : N On insulin at home? : Y HbA1C : Lab Results Component Value Date A1C 8.1 (H) 07/17/2019 On steroids? : Y - Prednisone 5mg qAM Anti-psychotics? : N KAR/CKD? : Y Liver failure? : Y- s/p OLTx 08/16 CHF? : N Pancreatic conditions? : N Diabetes medications prior to admission: : NPH, Lispro ROS: A systems ROS essentially negative except for what is mentioned as positive in HPI or elsew here in this note. PMHx: Past Medical History: Diagnosis Date Cirrhosis (HCC) CKD (chronic kidney disease) PSurgHx: Past Surgical History Procedure Laterality Date Leg surgery FamHx: Family History Problem Relation Liver cancer Neg Hx SOCIAL Hx: Social History Socioeconomic History Marital status: Single [...] file Gets together: Not on file Attends worship service: Not on file Active member of club or organization: Not on file Attends meetings of clubs or organizations: Not on file Relationship status: Not on file Other Topics Concern Not on file Social History Narrative Not on file HOME MEDICATIONS: Medications Prior to Admission Medication Sig Dispense Refill Last Dose Alcohol Swabs (ALCOHOL PREP SWABS) topical pads, medicated Apply 1 each to affected are a five times daily. Use as directed. 200 each 1 10/09/2019 amiodarone 200 mg oral tablet Take 1 tablet by mouth once daily. Indications: Preventio n of Ventricular Fibrillation 30 tablet 1 10/09/2019 aspirin EC 325 mg oral tablet,delayed release (DR/EC) Take 1 tablet by mouth once daily . 100 tablet 5 10/09/2019 atovaquone 750 mg/5 mL oral suspension Take 10 mL by mouth once daily. 150 mL 2 019 Blood Sugar Diagnostic (FREESTYLE LITE STRIPS) miscellaneous (misc) strip Test blood abreu gar four times daily (before each meal and at bedtime). Use as directed. Indications: type 2 diabetes mellitus 150 each 5 10/09/2019 Blood-Glucose Meter (FREESTYLE LITE METER) miscellaneous (misc) kit Use as directed. Us e as directed. 1 each 0 10/09/2019 calcium carbonate 500 mg elemental (1,250 mg total salt) oral tablet Take 2 tablets by mouth once daily at bedtime. Indications: osteoporosis prevention 100 tablet 5 10/09/2019 chlorhexidine 0.12 % mucous membrane mouthwash Use cotton swab to dab chlorhexdine and apply gently to wound. 473 mL 2 10/09/2019 Cholecalciferol (Vitamin D3) 2,000 unit oral tablet Take 1 tablet by mouth once daily. 10/09/2019 insulin lispro (Human) 100 unit/mL subcutaneous insulin pen Inject 5 units under the sk in with breakfast, 10 units under the skin with lunch, 12 units under the skin with dinner. Max dose = 56 units per day Indications: type 2 diabetes mellitus 15 mL 1 10/09/2019 Insulin [place] (Disposable) (COMFORT EZ PEN NEEDLES) 31 gauge x 5/16" miscellaneous (m isc) needle Use as directed for 5 insulin injections per day. 150 each 5 10/09/2019 insulin NPH 100 unit/mL (3 mL) subcutaneous [...] evening. Indications: type 2 diabetes isela itus.) 15 mL 1 10/09/2019 lancets (FREESTYLE LANCETS) 28 gauge miscellaneous (misc) [facility] [place] Test blood sugar four ti mes daily (before each meal and at bedtime). Indications: type 2 diabetes mellitus 150 each 5 10/09/2019 magnesium oxide 250 mg elemental oral tablet Take 2 tablets by mouth two times daily. 1 00 tablet 5 10/09/2019 metoprolol succinate 25 mg oral tablet extended release 24 hr Take 0.5 tablets by mouth once daily. Indications: high blood pressure 15 tablet 5 10/09/2019 [] mirtazapine 15 mg oral tablet Take 1 [facility] Indications: lack of appetite 14 tablet 0 10/09/2019 Miscellaneous Medical Supply miscellaneous (misc) [facility] [place] Chlorhexidine prep sticks (small ) 30 each 2 10/09/2019 multivitamin oral tablet Take 1 tablet by mouth once daily. Indications: Treatment To P revent Vitamin Deficiency 100 tablet 5 10/09/2019 mycophenolate 250 mg oral capsule Take 4 capsules by mouth two times daily. Indications : liver transplant rejection prevention 240 capsule 5 10/09/2019 omeprazole 20 mg oral capsule,delayed release(DR/EC) Take 1 capsule by mouth once daily . Indications: heartburn 30 capsule 5 10/09/2019 predniSONE 5 mg oral tablet Take 1 tablet by mouth once daily. Indications: liver trans plant rejection prevention 120 tablet 5 10/09/2019 tacrolimus 1 mg oral capsule Take 2 capsules by mouth two times daily. Indications: niels er transplant rejection prevention 300 capsule 5 10/09/2019 valGANciclovir 450 mg oral tablet Take 1 tablet by mouth three times weekly (on Saturday, Saturday and Saturday). Indications: viral infection prevention 12 tablet 0 CURRENT MEDICATIONS: Current Facility-Administered Medications: acetaminophen (TYLENOL) tablet 325 mg, 325 mg, o ral, Q4H PRN, Charlene Leonard MD, 325 mg at 10/17/19 1014 amiodarone (CORDARONE) tablet 200 mg, 200 mg, oral, DAILY, Charlene Leonard MD, 200 mg at 0 10/22/19 0741 aspirin EC tablet 325 mg, 325 mg, oral, DAILY, Charlene Leonard MD, 325 mg at 10/22/19740 atovaquone (MEPRON) suspension 1,500 mg, 1,500 mg, oral, DAILY, Charlene Leonard MD, 1,500 mg at 10/21/19 08 dextrose 50 % in water IV 25 mL, 25 mL, intravenous, PRN, Charlene Leonard MD enoxaparin (LOVENOX) injection 30 mg, 30 mg, subcutaneous, QPM, Charlene Leonard MD, 30 mg at 10/21/192257 fludrocortisone (FLORINEF) tablet 0.1 mg, 0.1 mg, oral, DAILY, Nieves Small MD, 0.1 mg a t 10/22/19740 glucagon (GLUCAGEN) injection 1 mg, 1 mg, intramuscular, PRN, Charlene Leonard MD glucose chewable tablet 16 g, 16 g, oral, PRN, Charlene Leonard MD insulin glargine (LANTUS) injection 10 Units, 10 Units, subcutaneous, HS, Jovany Pulliam, AC [employer], 10 Units at 10/21/192257 insulin lispro (HUMALOG) injection 1-16 Units, 1-16 Units, subcutaneous, QID, Erich Hernandez Jr., GRADER MARKER, 1 Units at 10/21/192257 insulin lispro (HUMALOG) injection 4 Units, 4 Units, subcutaneous, TID W/MEALS, Jovany Gold il, ACNP, 2 Units at 10/22/19741 magnesium oxide (MAG-OX) tablet 400 mg, 400 mg, oral, BID, Rod Weeks MD, 400 mg at 10/22/19740 metoprolol tartrate (LOPRESSOR) tablet 12.5 mg, 12.5 mg, oral, BID, Charlene Leonard MD, 12 .5 mg at 10/22/19740 mirtazapine (REMERON) tablet 30 mg, 30 mg, oral, QPM, Luan Garcia MD, 30 mg at 10/21/192256 mycophenolate (CELLCEPT) capsule 1,000 mg, 1,000 mg, oral, BID (MMF), Charlene Leonard MD, 1,000 mg at 10/22/19740 ondansetron (ZOFRAN) injection 4 mg, 4 mg, intravenous, Q12H PRN, Farrukh Ceron MD, 4 mg a t 10/21/192237 ondansetron ODT (ZOFRAN ODT) tablet 4 mg, 4 mg, oral, Q8H PRN, Farrukh Ceron MD tacrolimus capsule 2 mg, 2 mg, oral, BID, Nieves Small MD, 2 mg at 10/22/19 0741 [START ON 10/23/2019] valGANciclovir (VALCYTE) tablet 450 mg, 450 mg, oral, DAILY, Rod Weeks MD ALLERGIES: Allergies Allergen Reactions Doxycycline Hives and Rash PHYSICAL EXAM: Last Vitals: BP 115/59 (BP Location: Right upper arm, Patient Position: Lying on back) | Pulse 71 | Temp 36.8 C (98.2 F) (Oral) | Resp 16 | Ht 1.803 m (5' 11") | Wt 78.6 kg (173 lb 4.8 oz) | SpO2 99% | BMI 24.17 kg/m | BSA 1.98 m General: NAD Resp: Normal effort LAB DATA: Lab Results Component Value Date A1C 8.1 07/17/2019 A1C <3.5 04/21/2019 Last 8 POC CBG's Lab Results Component Value Date GLU 106 (H) 10/22/2019 GLU 124 (H) 10/22/2019 GLU 145 (H) 10/21/2019 GLU 133 (H) 10/21/2019 GLU 141 (H) 10/21/2019 GLU 187 (H) 10/21/2019 GLU 106 (H) 10/21/2019 GLU 117 (H) 10/21/2019 Recent Labs 10/20/19 0602 10/21/19 0940 10/22/19 0544 AST 10 13 9 ALT 18 19 16 TBILI 0.2* 0.3 0.3 AP 51* 52* 48* ALB 3.6 3.8 3.3* TP 6.2* 6.4 5.9* Recent Labs 10/20/19 0602 10/21/19 0940 10/21/19 2040 10/22/19 0544 10/22/19 0714 GLU 116* < > 187* < > 145* 124* 106* BUN 54* -- 47* -- -- 46* -- CR 2.29* -- 1.95* -- -- 2.13* -- ALB 3.6 -- 3.8 -- -- 3.3* -- CA 9.6 -- 9.7 -- -- 9.3 -- NA 141 -- 141 -- -- 142 -- K 5.0 -- 4.6 -- -- 4.8 -- CL 107 -- 108 -- -- 108 -- BICARB 27 -- 29 -- -- 30 -- < > = values in this interval not displayed. Lab Results Component Value Date WBC 3.15 10/22/2019 HB 10.1 10/22/2019 HCT 32.2 10/22/2019 PLT 70 10/22/2019 MCV 91.2 10/22/2019 RDW 46.1 10/22/2019 Lab Results Component Value Date TSH 1.72 10/13/2019 TSH 0.47 07/18/2019 TSH 1.33 04/21/2019 No results found for: DARIANALJESSICA Alegria Glycemic Team - [facility] Endocrinology, Diabetes, & Clinical Nutrition Glycemic Team Phone (8AM-5PM): [phone] Glycemic Team Pager: [phone] I spent 20 minutes in the care of this patient. Greater than 50% of the time was spent cou nseling regarding management of diabetes in the hospital and coordination of care with floor nurses and team. This patient s assessment and plan were discussed with consult attending Dr. Odom . Emeka Garzon MD - 10/21/2019 2:22 PM PSTAssociated Order(s): IP CONSULT TO CARDIOLOGY Cardiology Consult Note Consulting Service: Transplant Reason for consult: Tachycardia History of Present Illness: Doug Duran is a 54 y.o. male with a history of end stage liver disease 2/2 alcoho lic cirrhosiswith liver transplant (OLT) 08/16, hx of SVT and atrial fibrillation, spur cell anemia. He is admitted 10/12/19 for failure to thrive, acute renal injury. It is noted that he had a long admission with supraventricular tachycardia requiring amiodarone infusion. Cardiolog y was consulted at that time and planned to continue amiodarone. It was noted that he also h ave SVT in response to dobutamine stress testing. This was pre-transplant, and cardiology te am felt that it may still be a problem post-transplant Presenting ECG appears to be sinus rh ythm with RBBB. History is provided by patient. He reports not doing well and having poor appetite at home. He denied chest discomfort, orthopnea, or shortness of breath at rest. He did endorse incre ased fatigue overall. There is no syncope or presyncope. He denies palpitations. Review of Systems: Pertinent findings listed above. Otherwise multi-point 14-point ROS negative. Past Medical and Surgical History: Past Medical History: Diagnosis Date Cirrhosis (HCC) CKD (chronic kidney disease) Past Surgical History Procedure Laterality Date Leg surgery Allergies: Allergies Allergen Reactions Doxycycline Hives and Rash Medications: Medications Prior to Admission Medication Sig Dispense Refill Last Dose Alcohol Swabs (ALCOHOL PREP SWABS) topical pads, medicated Apply 1 each to affected are a five times daily. Use as directed. 200 each 1 10/09/2019 amiodarone 200 mg oral tablet Take 1 tablet by mouth once daily. Indications: Preventio n of Ventricular Fibrillation 30 tablet 1 10/09/2019 aspirin EC 325 mg oral tablet,delayed release (DR/EC) Take 1 tablet by mouth once daily . 100 tablet 5 10/09/2019 atovaquone 750 mg/5 mL oral suspension Take 10 mL by mouth once daily. 150 mL 2 019 Blood Sugar Diagnostic (FREESTYLE LITE STRIPS) miscellaneous (misc) strip Test blood abreu gar four times daily (before each meal and at bedtime). Use as directed. Indications: type 2 diabetes mellitus 150 each 5 10/09/2019 Blood-Glucose Meter (FREESTYLE LITE METER) miscellaneous (misc) kit Use as directed. Us e as directed. 1 each 0 10/09/2019 calcium carbonate 500 mg elemental (1,250 mg total salt) oral tablet Take 2 tablets by mouth once daily at bedtime. Indications: osteoporosis prevention 100 tablet 5 10/09/2019 chlorhexidine 0.12 % mucous membrane mouthwash Use cotton swab to dab chlorhexdine and apply gently to wound. 473 mL 2 10/09/2019 Cholecalciferol (Vitamin D3) 2,000 unit oral tablet Take 1 tablet by mouth once daily. 10/09/2019 insulin lispro (Human) 100 unit/mL subcutaneous insulin pen Inject 5 units under the sk in with breakfast, 10 units under the skin with lunch, 12 units under the skin with dinner. Max dose = 56 units per day Indications: type 2 diabetes mellitus 15 mL 1 10/09/2019 Insulin Mesilla (Disposable) (COMFORT EZ PEN NEEDLES) 31 gauge x 5/16" miscellaneous (m isc) needle Use as directed for 5 insulin injections per day. 150 each 5 10/09/2019 insulin NPH 100 unit/mL (3 mL) subcutaneous [...] evening. Indications: type 2 diabetes isela itus.) 15 mL 1 10/09/2019 lancets (FREESTYLE LANCETS) 28 gauge miscellaneous (misc) misc Test blood sugar four ti mes daily (before each meal and at bedtime). Indications: type 2 diabetes mellitus 150 each 5 10/09/2019 magnesium oxide 250 mg elemental oral tablet Take 2 tablets by mouth two times daily. 1 00 tablet 5 10/09/2019 metoprolol succinate 25 mg oral tablet extended release 24 hr Take 0.5 tablets by mouth once daily. Indications: high blood pressure 15 tablet 5 10/09/2019 mirtazapine 15 mg oral tablet Take 1 tablet by mouth once daily in the evening for 14 d ays. Indications: lack of appetite 14 tablet 0 10/09/2019 Miscellaneous Medical Supply miscellaneous (misc) misc Chlorhexidine prep sticks (small ) 30 each 2 10/09/2019 multivitamin oral tablet Take 1 tablet by mouth once daily. Indications: Treatment To P revent Vitamin Deficiency 100 tablet 5 10/09/2019 mycophenolate 250 mg oral capsule Take 4 capsules by mouth two times daily. Indications : liver transplant rejection prevention 240 capsule 5 10/09/2019 omeprazole 20 mg oral capsule,delayed release(DR/EC) Take 1 capsule by mouth once daily . Indications: heartburn 30 capsule 5 10/09/2019 predniSONE 5 mg oral tablet Take 1 tablet by mouth once daily. Indications: liver trans plant rejection prevention 120 tablet 5 10/09/2019 tacrolimus 1 mg oral capsule Take 2 capsules by mouth two times daily. Indications: niels er transplant rejection prevention 300 capsule 5 10/09/2019 valGANciclovir 450 mg oral tablet Take 1 tablet by mouth three times weekly (on Saturday, Saturday and Saturday). Indications: viral infection prevention 12 tablet 0 Social History: Social History Socioeconomic History Marital [...] file Gets together: Not on file Attends worship service: Not on file Active member of club or organization: Not on file Attends meetings of clubs or organizations: Not on file Relationship status: Not on file Other Topics Concern Not on file Social History Narrative Not on file Family History: Family History Problem Relation Liver cancer Neg Hx Physical Exam: BP 128/82 (BP Location: Right upper arm, Patient Position: Lying on back) | Pulse 124 | T emp 36.9 C (98.4 F) (Oral) | Resp 16 | Ht 1.803 m (5' 11") | Wt 80.7 kg (177 lb 14.6 oz) | SpO2 99% | BMI 24.81 kg/m | BSA 2.01 m General: NAD, tired appearing Cardiac: Tachycardia Normal S1/S2.Did not appreciate S3/S4 or murmurs. JVP 10 cm H20 Pulmonary: Normal inspiration, clear to auscultation bilaterally, no rales. Vascular: 2+ Carotid, no bruits, . 2+ bilateral radial and PT pulses. Extremity: Trace pitting edema GI: Non-tender, non-distended. MSK: Grossly normal muscle tone and strength. HEENT: Sclera anicteric, PERRL, Normal oral mucosa, OP clear Neuro/Psych: A+O x 3, normal mood and affect. Labs: Reviewed, notable for: Chemistries: Last 72 Hours (or 3 results) - Refreshable Recent Labs 10/19/19 0643 10/20/19 0602 10/21/19 0033 10/21/19 0802 10/21/19 0940 NA 135* -- 141 -- -- -- 141 K 4.9 -- 5.0 -- -- -- 4.6 CL 104 -- 107 -- -- -- 108 BICARB 26 -- 27 -- -- -- 29 BUN 54* -- 54* -- -- -- 47* CR 2.45* -- 2.29* -- -- -- 1.95* GLU 201* < > 116* < > 117* 106* 187* CA 9.3 -- 9.6 -- -- -- 9.7 MG 2.0 -- 1.8 -- -- -- 1.6 PO4 5.1* -- 5.4* -- -- -- 4.2 < > = values in this interval not displayed. CBC with diff last 72 hours (or 3 results) - Refreshable Recent Labs 10/19/19 0643 10/20/19 0602 10/21/19 1215 WBC 3.26* 3.24* 3.12* HB 9.4* 9.6* 9.9* HCT 28.2* 30.2* 30.6* PLT 64* 64* 68* Lab Results Component Value Date AST 13 10/21/2019 ALT 19 10/21/2019 TBILI 0.3 10/21/2019 DIRBILI 4.2 07/07/2019 AP 52 10/21/2019 TP 6.4 10/21/2019 ALB 3.8 10/21/2019 Lab Results Component Value Date INRPT 1.07 10/05/2019 Troponins, last 72 hours: No results for input(s): TROPONIN in the last 72 hours. Pertinent Imaging: CXR none this admission Cardiology Diagnostics: Echo: 06/2019 Final Impressions: 1. The left ventricular size [...] dated 04/21/2019, there are no significant changes. EKG 10/21/2019 Tachycardic, unclear if sinus. RBBB morphology similar to prior in sinus rhythm ECG 07/18 6:26 AM: Atrial fib rate 185, RVR, RBBB. 07/18 5:07AM: SVT with RBBB and LAFB Telemetry reviewed Stress 04/2019 Final Impressions: 1. At baseline left [...] age predicted maximal heart rate. Assessment and Recommendations: # SVT likely atrial tachycardia # Hx of atrial fibrillation 54 y.o. male with a history of end stage liver disease 2/2 alcoholic cirrhosiswith liver tr ansplant (OLT) 08/16, hx of SVT and atrial fibrillation not on anticoagulation who is admitt ed for failure to thrive and acute renal injury. He has a history of supraventricular tachyc ardia including atrial fibrillation that was documented prior to transplant; cardiology cons ulted as inpatient due to difficulty with arrhythmia control Jun 2019. Cardiology is consul jeannette because he had tachycardia this AM. Telemetry is not available prior to this, but review showing tachycardia with stable rate with similar RBBB morphology and P waves similar to hi s sinus P wave. Likely has atrial tachycardia originating from near sinus node. These are po shirlene controlled with rate control agents. He is already on amiodarone from outpatient, and sophia mcnally would benefit from additional bolus. Since he is asymptomatic continue current medic ations for now. - Continue amiodarone PO 200mg daily - Continue metoprolol PO - Consider IV lasix 20mg for goal net negative 500cc - Had documented atrial fib in past, but deemed low [id number] so not anticoagulated. No ep isodes currently resemble AF. We will continue to follow. Staffed with cardiology attending, Dr. Magallon. Emeka Peck MD Animal Nursery Worker Associated attestation - Karlo Magallon MD - 10/22/2019 2:19 PM PSTCardiology Attendin bautista Attestation: I saw the patient, performed pertinent parts of the physical examination and reviewed histo rical data. I agree with the documentation and have noted any additions or changes. Chucho Magallon M.D. Coffee Shop Attendant [facility] [place] [facility] [place] Treva Odom MD - 10/21/2019 9:34 AM PSTFormatting of this note might be differe nt from the original. INPATIENT GLYCEMIC TEAM CONSULT FOLLOW-UP NOTE ASSESSMENT: 54 y.o. male with a Type 2 diabetes (Hgb A1c 8.1% 07/17/19) ESLD 2/2 EtOH s/p OLTx 08/16. Quintana d course c/b SVT and HRS/KAR previously on HD now with chronic insufficiency but off HD. Pt is re-admitted for failure to thrive, depression and hyperkalemia. We are consulted for glyc emic management. Prednisone has been stopped. We have adjusted his insulin regimen but will follow closely t [place] as this is the first day off steroids. Patient is also nearing discharge and primary team is requesting simplified routine for gly cemic management. Will evaluate patient's response today while no longer on steroids and chad e a plan. Recommend Cortrosyn stimulation test with discontinuing prednisone to make sure he does not have secondary adrenal insufficiency due to extended prednisone use. Will continue to monitor closely for continuing glycemic regimen modification needs. Target glucose : Fasting and before meals <140, Random <180 Home Rx : NPH 17 units qAM, NPH 7 units qHS, Lispro 5 units with breakfast, Lispro 10 un its with lunch, Lispro 12 units with dinner Diet : Regular Prior Rx on pred 5 mg qam : NPH 17 units qAM, NPH 5 units qHS, Lispro 6/10/8 units wm, Mod erate SSI Current Rx: : Glargine 10 units tid with meals, lispro 4 units tid with meals, moderate supplemental insulin IV fluids : N/A Steroids : Prednisone 5 mg qAM - last dose 10/20/19 Insulin infusion requirement : N/A RECOMMENDATIONS: These orders have been entered as orders per preference of the primary team: Lispro 4 units TID AC starting today Glargine 10 units sq qhs We will determine discharge plan based on response to these doses. May be able to discha rge on glargine and oral medication. Recommend Cortrosyn stim test (not ordered, but was discussed with team yesterday) CBG ACHS + Moderate SSI Thank you for the opportunity to contribute to this patient's care. For glycemic needs, contact glycemic team from 8AM-5PM ([phone]) . Outside of that t [place], all questions should be directed to the primary team. INTERVAL HISTORY: Diabetes related history: Prior diagnosis of diabetes? : Y Type of diabetes: : T2DM Duration of diabetes: : 4 months Family hx of DM? : N On insulin at home? : Y HbA1C : Lab Results Component Value Date A1C 8.1 (H) 07/17/2019 On steroids? : Y - Prednisone 5mg qAM Anti-psychotics? : N KAR/CKD? : Y Liver failure? : Y- s/p OLTx 08/16 CHF? : N Pancreatic conditions? : N Diabetes medications prior to admission: : NPH, Lispro ROS: A systems ROS essentially negative except for what is mentioned as positive in HPI or elsew here in this note. PMHx: Past Medical History: Diagnosis Date Cirrhosis (HCC) CKD (chronic kidney disease) PSurgHx: Past Surgical History Procedure Laterality Date Leg surgery FamHx: Family History Problem Relation Liver cancer Neg Hx SOCIAL Hx: Social History Socioeconomic History Marital status: Single [...] file Gets together: Not on file Attends worship service: Not on file Active member of club or organization: Not on file Attends meetings of clubs or organizations: Not on file Relationship status: Not on file Other Topics Concern Not on file Social History Narrative Not on file HOME MEDICATIONS: Medications Prior to Admission Medication Sig Dispense Refill Last Dose Alcohol Swabs (ALCOHOL PREP SWABS) topical pads, medicated Apply 1 each to affected are a five times daily. Use as directed. 200 each 1 10/09/2019 amiodarone 200 mg oral tablet Take 1 tablet by mouth once daily. Indications: Preventio n of Ventricular Fibrillation 30 tablet 1 10/09/2019 aspirin EC 325 mg oral tablet,delayed release (DR/EC) Take 1 tablet by mouth once daily . 100 tablet 5 10/09/2019 atovaquone 750 mg/5 mL oral suspension Take 10 mL by mouth once daily. 150 mL 2 019 Blood Sugar Diagnostic (FREESTYLE LITE STRIPS) miscellaneous (misc) strip Test blood abreu gar four times daily (before each meal and at bedtime). Use as directed. Indications: type 2 diabetes mellitus 150 each 5 10/09/2019 Blood-Glucose Meter (FREESTYLE LITE METER) miscellaneous (misc) kit Use as directed. Us e as directed. 1 each 0 10/09/2019 calcium carbonate 500 mg elemental (1,250 mg total salt) oral tablet Take 2 tablets by mouth once daily at bedtime. Indications: osteoporosis prevention 100 tablet 5 10/09/2019 chlorhexidine 0.12 % mucous membrane mouthwash Use cotton swab to dab chlorhexdine and apply gently to wound. 473 mL 2 10/09/2019 Cholecalciferol (Vitamin D3) 2,000 unit oral tablet Take 1 tablet by mouth once daily. 10/09/2019 insulin lispro (Human) 100 unit/mL subcutaneous insulin pen Inject 5 units under the sk in with breakfast, 10 units under the skin with lunch, 12 units under the skin with dinner. Max dose = 56 units per day Indications: type 2 diabetes mellitus 15 mL 1 10/09/2019 Insulin Mesilla (Disposable) (COMFORT EZ PEN NEEDLES) 31 gauge x 5/16" miscellaneous (m isc) needle Use as directed for 5 insulin injections per day. 150 each 5 10/09/2019 insulin NPH 100 unit/mL (3 mL) subcutaneous [...] evening. Indications: type 2 diabetes isela itus.) 15 mL 1 10/09/2019 lancets (FREESTYLE LANCETS) 28 gauge miscellaneous (misc) misc Test blood sugar four ti mes daily (before each meal and at bedtime). Indications: type 2 diabetes mellitus 150 each 5 10/09/2019 magnesium oxide 250 mg elemental oral tablet Take 2 tablets by mouth two times daily. 1 00 tablet 5 10/09/2019 metoprolol succinate 25 mg oral tablet extended release 24 hr Take 0.5 tablets by mouth once daily. Indications: high blood pressure 15 tablet 5 10/09/2019 mirtazapine 15 mg oral tablet Take 1 tablet by mouth once daily in the evening for 14 d ays. Indications: lack of appetite 14 tablet 0 10/09/2019 Miscellaneous Medical Supply miscellaneous (misc) misc Chlorhexidine prep sticks (small ) 30 each 2 10/09/2019 multivitamin oral tablet Take 1 tablet by mouth once daily. Indications: Treatment To P revent Vitamin Deficiency 100 tablet 5 10/09/2019 mycophenolate 250 mg oral capsule Take 4 capsules by mouth two times daily. Indications : liver transplant rejection prevention 240 capsule 5 10/09/2019 omeprazole 20 mg oral capsule,delayed release(DR/EC) Take 1 capsule by mouth once daily . Indications: heartburn 30 capsule 5 10/09/2019 predniSONE 5 mg oral tablet Take 1 tablet by mouth once daily. Indications: liver trans plant rejection prevention 120 tablet 5 10/09/2019 tacrolimus 1 mg oral capsule Take 2 capsules by mouth two times daily. Indications: niels er transplant rejection prevention 300 capsule 5 10/09/2019 valGANciclovir 450 mg oral tablet Take 1 tablet by mouth three times weekly (on Saturday, Saturday and Saturday). Indications: viral infection prevention 12 tablet 0 CURRENT MEDICATIONS: Current Facility-Administered Medications: acetaminophen (TYLENOL) tablet 325 mg, 325 mg, o ral, Q4H PRN, Chalrene Leonard MD, 325 mg at 10/17/19 1014 amiodarone (CORDARONE) tablet 200 mg, 200 mg, oral, DAILY, Charlene Leonard MD, 200 mg at 0 10/21/19812 aspirin EC tablet 325 mg, 325 mg, oral, DAILY, Charlene Leonard MD, 325 mg at 10/21/19812 atovaquone (MEPRON) suspension 1,500 mg, 1,500 mg, oral, DAILY, Charlene Leonard MD, 1,500 mg at 10/21/19812 dextrose 50 % in water IV 25 mL, 25 mL, intravenous, PRN, Charlene Leonard MD enoxaparin (LOVENOX) injection 30 mg, 30 mg, subcutaneous, QPM, Charlene Leonard MD, 30 mg at 10/20/192130 fludrocortisone (FLORINEF) tablet 0.1 mg, 0.1 mg, oral, DAILY, Nieves Small MD, 0.1 mg a t 10/21/19812 glucagon (GLUCAGEN) injection 1 mg, 1 mg, intramuscular, PRN, Charlene Leonard MD glucose chewable tablet 16 g, 16 g, oral, PRN, Charlene Leonard MD insulin glargine (LANTUS) injection 10 Units, 10 Units, subcutaneous, HS, Jovany Pulliam, AC [employer]ER, 10 Units at 10/20/192132 insulin lispro (HUMALOG) injection 1-16 Units, 1-16 Units, subcutaneous, QID, Erich Hernandez Jr., GRADER MARKER, 2 Units at 10/20/19 1418 insulin lispro (HUMALOG) injection 10 Units, 10 Units, subcutaneous, QPM MEAL, Jovany leonardo, ACNP, 5 Units at 10/20/192130 insulin lispro (HUMALOG) injection 3 Units, 3 Units, subcutaneous, BID SNACK, Jovany Pulliam , ACNP insulin lispro (HUMALOG) injection 4 Units, 4 Units, subcutaneous, TID W/MEALS, Jovany greenfield, ACNP magnesium oxide (MAG-OX) tablet 400 mg, 400 mg, oral, BID, Rod Weeks MD, 400 mg at 10/21/19812 metoprolol tartrate (LOPRESSOR) tablet 12.5 mg, 12.5 mg, oral, BID, Charlene Leonard MD, 12 .5 mg at 10/21/19812 mirtazapine (REMERON) tablet 30 mg, 30 mg, oral, QPM, Luan Garcia MD, 30 mg at 10/20/192130 mycophenolate (CELLCEPT) capsule 1,000 mg, 1,000 mg, oral, BID (MMF), Charlene Leonard MD, 1,000 mg at 10/21/19812 tacrolimus capsule 2 mg, 2 mg, oral, BID, Nieves Small MD, 2 mg at 10/21/19812 valGANciclovir (VALCYTE) tablet 450 mg, 450 mg, oral, Once per day on Sat, Charlene Leonard MD, 450 mg at 10/21/19812 ALLERGIES: Allergies Allergen Reactions Doxycycline Hives and Rash PHYSICAL EXAM: Last Vitals: BP 128/82 (BP Location: Right upper arm, Patient Position: Lying on back) | Pulse 124 | Temp 36.9 C (98.4 F) (Oral) | Resp 16 | Ht 1.803 m (5' 11") | Wt 80.7 k g (177 lb 14.6 oz) | SpO2 99% | BMI 24.81 kg/m | BSA 2.01 m General: No distress, resting in bed Resp: Unlabored LAB DATA: Lab Results Component Value Date A1C 8.1 07/17/2019 A1C <3.5 04/21/2019 Last 8 POC CBG's Lab Results Component Value Date GLU 106 (H) 10/21/2019 GLU 117 (H) 10/21/2019 GLU 146 (H) 10/20/2019 GLU 84 10/20/2019 GLU 164 (H) 10/20/2019 GLU 122 (H) 10/20/2019 GLU 116 (H) 10/20/2019 GLU 167 (H) 10/19/2019 Recent Labs 10/18/19 0517 10/19/19 0643 10/20/19 0602 AST 11 6 10 ALT 19 18 18 TBILI 0.3 0.2* 0.2* AP 54 47* 51* ALB 3.9 3.6 3.6 TP 6.9 6.1* 6.2* Recent Labs 10/18/1951610/19/19 0643 10/20/19 0602 10/20/19201610/21/19 0033 10/21/19 0802 GLU 153* < > 201* < > 116* < > 146* 117* 106* BUN 46* -- 54* -- 54* -- -- -- -- CR 2.28* -- 2.45* -- 2.29* -- -- -- -- ALB 3.9 -- 3.6 -- 3.6 -- -- -- -- CA 9.8 -- 9.3 -- 9.6 -- -- -- -- NA 138 -- 135* -- 141 -- -- -- -- K 4.8 -- 4.9 -- 5.0 -- -- -- -- CL 104 -- 104 -- 107 -- -- -- -- BICARB 29 -- 26 -- 27 -- -- -- -- < > = values in this interval not displayed. Lab Results Component Value Date WBC 3.24 10/20/2019 HB 9.6 10/20/2019 HCT 30.2 10/20/2019 PLT 64 10/20/2019 MCV 90.7 10/20/2019 RDW 46.5 10/20/2019 Lab Results Component Value Date TSH 1.72 10/13/2019 TSH 0.47 07/18/2019 TSH 1.33 04/21/2019 No results found for: MICROALBCRE Treva Odom MD Coffee Shop Attendant [facility] [place] [id number] I spent 26 minutes in the care of this patient. Greater than 50% of the time was spent cou nseling regarding management of diabetes in the hospital and coordination of care with floor nurses and team. Jovany Harrison, [facility] - 10/20/2019 3:29 PM PST INPATIENT GLYCEMIC TEAM CONSULT FOLLOW-UP NOTE ASSESSMENT: 54 y.o. male with a past medical history significant for T2DM (Hgb A1c 8.1% 07/17/19) ESLD 2 /2 EtOH s/p OLTx 08/16 with a course c/b SVT now on amio/metop and HRS/KAR previously on HD now with chronic insufficiency but off HD, re-admitted for failure to thrive, depression and hyperkalemia. We are consulted for glycemic management. AM CBG within target range. Primary team reports daily prednisone to be completed today, re commended that they do a cortisol stim test if patient has been on steroids for greater than 2 months. Primary team will discuss with pharmacist and place order if deemed appropriate. Will adjust insulin regimen with regard to change in insulin regimen. Considering patient's insulin requirement at night, we will anticipate this is his basal insulin requirement and d ose prandial insulin for tomorrow accordingly. Patient is also nearing discharge and primary team is requesting simplified routine for glycemic management. Will evaluate patient's resp onse tomorrow no longer on steroids and make a plan based on his response. Will continue to monitor closely for continuing glycemic regimen modification needs. Target glucose : Fasting and before meals <140, Random <180 Home Rx : NPH 17 units qAM, NPH 7 units qHS, Lispro 5 units with breakfast, Lispro 10 un its with lunch, Lispro 12 units with dinner Diet : Regular Current Rx : NPH 17 units qAM, NPH 5 units qHS, Lispro 6/10/8 units wm, Moderate SSI IV fluids : N/A Steroids : Prednisone 5 mg qAM - last dose 10/20/19 Insulin infusion requirement : N/A RECOMMENDATIONS: These orders have been entered as orders per preference of the primary team: Discontinue NPH 17 units qAM; 5units qHS Discontinue Lispro 6 units with breakfast, Lispro 10 units with lunch Increase Lispro 8=>10 units tonight for dinner x1, discontinue after dose given Discontinue Lispro 3 units w/ snack after dose given tonight Start Glargine 10 units qHS tonight Start Lispro 4 units TID AC tomorrow Cortisol Stim Test tomorrow AM (not ordered by glycemic team, Primary team to discuss) CBG ACHS + Moderate SSI Thank you for the opportunity to contribute to this patient's care. For glycemic needs, contact glycemic team from 8AM-5PM ([phone]) . Outside of that t [place], all questions should be directed to the primary team. INTERVAL HISTORY: Diabetes related history: Prior diagnosis of diabetes? : Y Type of diabetes: : T2DM Duration of diabetes: : 4 months Family hx of DM? : N On insulin at home? : Y HbA1C : Lab Results Component Value Date A1C 8.1 (H) 07/17/2019 On steroids? : Y - Prednisone 5mg qAM Anti-psychotics? : N KAR/CKD? : Y Liver failure? : Y- s/p OLTx 08/16 CHF? : N Pancreatic conditions? : N Diabetes medications prior to admission: : NPH, Lispro ROS: A systems ROS essentially negative except for what is mentioned as positive in HPI or elsew here in this note. PMHx: Past Medical History: Diagnosis Date Cirrhosis (HCC) CKD (chronic kidney disease) PSurgHx: Past Surgical History Procedure Laterality Date Leg surgery FamHx: Family History Problem Relation Liver cancer Neg Hx SOCIAL Hx: Social History Socioeconomic History Marital status: Single [...] file Gets together: Not on file Attends worship service: Not on file Active member of club or organization: Not on file Attends meetings of clubs or organizations: Not on file Relationship status: Not on file Other Topics Concern Not on file Social History Narrative Not on file HOME MEDICATIONS: Medications Prior to Admission Medication Sig Dispense Refill Last Dose Alcohol Swabs (ALCOHOL PREP SWABS) topical pads, medicated Apply 1 each to affected are a five times daily. Use as directed. 200 each 1 10/09/2019 amiodarone 200 mg oral tablet Take 1 tablet by mouth once daily. Indications: Preventio n of Ventricular Fibrillation 30 tablet 1 10/09/2019 aspirin EC 325 mg oral tablet,delayed release (DR/EC) Take 1 tablet by mouth once daily . 100 tablet 5 10/09/2019 atovaquone 750 mg/5 mL oral suspension Take 10 mL by mouth once daily. 150 mL 2 019 Blood Sugar Diagnostic (FREESTYLE LITE STRIPS) miscellaneous (misc) strip Test blood abreu gar four times daily (before each meal and at bedtime). Use as directed. Indications: type 2 diabetes mellitus 150 each 5 10/09/2019 Blood-Glucose Meter (FREESTYLE LITE METER) miscellaneous (misc) kit Use as directed. Us e as directed. 1 each 0 10/09/2019 calcium carbonate 500 mg elemental (1,250 mg total salt) oral tablet Take 2 tablets by mouth once daily at bedtime. Indications: osteoporosis prevention 100 tablet 5 10/09/2019 chlorhexidine 0.12 % mucous membrane mouthwash Use cotton swab to dab chlorhexdine and apply gently to wound. 473 mL 2 10/09/2019 Cholecalciferol (Vitamin D3) 2,000 unit oral tablet Take 1 tablet by mouth once daily. 10/09/2019 insulin lispro (Human) 100 unit/mL subcutaneous insulin pen Inject 5 units under the sk in with breakfast, 10 units under the skin with lunch, 12 units under the skin with dinner. Max dose = 56 units per day Indications: type 2 diabetes mellitus 15 mL 1 10/09/2019 Insulin Mesilla (Disposable) (COMFORT EZ PEN NEEDLES) 31 gauge x 5/16" miscellaneous (m isc) needle Use as directed for 5 insulin injections per day. 150 each 5 10/09/2019 insulin NPH 100 unit/mL (3 mL) subcutaneous [...] evening. Indications: type 2 diabetes isela itus.) 15 mL 1 10/09/2019 lancets (FREESTYLE LANCETS) 28 gauge miscellaneous (misc) misc Test blood sugar four ti mes daily (before each meal and at bedtime). Indications: type 2 diabetes mellitus 150 each 5 10/09/2019 magnesium oxide 250 mg elemental oral tablet Take 2 tablets by mouth two times daily. 1 00 tablet 5 10/09/2019 metoprolol succinate 25 mg oral tablet extended release 24 hr Take 0.5 tablets by mouth once daily. Indications: high blood pressure 15 tablet 5 10/09/2019 mirtazapine 15 mg oral tablet Take 1 tablet by mouth once daily in the evening for 14 d ays. Indications: lack of appetite 14 tablet 0 10/09/2019 Miscellaneous Medical Supply miscellaneous (misc) misc Chlorhexidine prep sticks (small ) 30 each 2 10/09/2019 multivitamin oral tablet Take 1 tablet by mouth once daily. Indications: Treatment To P revent Vitamin Deficiency 100 tablet 5 10/09/2019 mycophenolate 250 mg oral capsule Take 4 capsules by mouth two times daily. Indications : liver transplant rejection prevention 240 capsule 5 10/09/2019 omeprazole 20 mg oral capsule,delayed release(DR/EC) Take 1 capsule by mouth once daily . Indications: heartburn 30 capsule 5 10/09/2019 predniSONE 5 mg oral tablet Take 1 tablet by mouth once daily. Indications: liver trans plant rejection prevention 120 tablet 5 10/09/2019 tacrolimus 1 mg oral capsule Take 2 capsules by mouth two times daily. Indications: niels er transplant rejection prevention 300 capsule 5 10/09/2019 valGANciclovir 450 mg oral tablet Take 1 tablet by mouth three times weekly (on Saturday, Saturday and Saturday). Indications: viral infection prevention 12 tablet 0 CURRENT MEDICATIONS: Current Facility-Administered Medications: acetaminophen (TYLENOL) tablet 325 mg, 325 mg, o ral, Q4H PRN, Charlene Leonard MD, 325 mg at 10/17/19 1014 amiodarone (CORDARONE) tablet 200 mg, 200 mg, oral, DAILY, Charlene Leonard MD, 200 mg at 1 0917 aspirin EC tablet 325 mg, 325 mg, oral, DAILY, Charlene Leonard MD, 325 mg at 10/20/19 0917 atovaquone (MEPRON) suspension 1,500 mg, 1,500 mg, oral, DAILY, Charlene Leonard MD, 1,500 mg at 10/20/19 0916 dextrose 50 % in water IV 25 mL, 25 mL, intravenous, PRN, Charlene Leonard MD enoxaparin (LOVENOX) injection 30 mg, 30 mg, subcutaneous, QPM, Charlene Leonard MD, 30 mg at 10/19/19 211 fludrocortisone (FLORINEF) tablet 0.1 mg, 0.1 mg, oral, DAILY, Nieves Small MD, 0.1 mg a t 10/20/19 0917 glucagon (GLUCAGEN) injection 1 mg, 1 mg, intramuscular, PRN, Charlene Leonard MD glucose chewable tablet 16 g, 16 g, oral, PRN, Charlene Leonard MD insulin glargine (LANTUS) injection 10 Units, 10 Units, subcutaneous, HS, Jovany Pulliam, AC [employer] insulin lispro (HUMALOG) injection 1 Units, 1 Units, subcutaneous, QPM MEAL, JESSICA Nagy insulin lispro (HUMALOG) injection 1-16 Units, 1-16 Units, subcutaneous, QID, Erich Hernandez Jr., GRADER MARKER, 2 Units at 10/20/19 1418 insulin lispro (HUMALOG) injection 3 Units, 3 Units, subcutaneous, BID SNACK, JESSICA Nagy [START ON 10/21/2019] insulin lispro (HUMALOG) injection 4 Units, 4 Units, subcutaneous, TID W/MEALS, JESSICA Nagy magnesium oxide (MAG-OX) tablet 400 mg, 400 mg, oral, BID, Rod Weeks MD, 400 mg at 10/20/19 0917 metoprolol tartrate (LOPRESSOR) tablet 12.5 mg, 12.5 mg, oral, BID, Charlene Leonard MD, 12 .5 mg at 10/20/19 0917 mirtazapine (REMERON) tablet 30 mg, 30 mg, oral, QPM, Luan Garcia MD mycophenolate (CELLCEPT) capsule 1,000 mg, 1,000 mg, oral, BID (MMF), Charlene Leonard MD, 1,000 mg at 10/20/19 1000 tacrolimus capsule 2 mg, 2 mg, oral, BID, Nieves Small MD, 2 mg at 10/20/19 0918 valGANciclovir (VALCYTE) tablet 450 mg, 450 mg, oral, Once per day on Sat, Charlene Leonard MD, 450 mg at 10/19/19 0805 ALLERGIES: Allergies Allergen Reactions Doxycycline Hives and Rash PHYSICAL EXAM: Last Vitals: BP 135/76 (BP Location: Right upper arm, Patient Position: Lying on back) | Pulse 68 | Temp 36.7 C (98.1 F) (Oral) | Resp 18 | Ht 1.803 m (5' 11") | Wt 80.6 kg (177 lb 11.1 oz) | SpO2 100% | BMI 24.78 kg/m | BSA 2.01 m General: No distress, resting in bed Resp: Unlabored LAB DATA: Lab Results Component Value Date A1C 8.1 07/17/2019 A1C <3.5 04/21/2019 Last 8 POC CBG's Lab Results Component Value Date GLU 164 (H) 10/20/2019 GLU 122 (H) 10/20/2019 GLU 116 (H) 10/20/2019 GLU 167 (H) 10/19/2019 GLU 189 (H) 10/19/2019 GLU 169 (H) 10/19/2019 GLU 201 (H) 10/19/2019 GLU 160 (H) 10/18/2019 Recent Labs 10/18/19 0517 10/19/19 0643 10/20/19 0602 AST 11 6 10 ALT 19 18 18 TBILI 0.3 0.2* 0.2* AP 54 47* 51* ALB 3.9 3.6 3.6 TP 6.9 6.1* 6.2* Recent Labs 10/18/19 0517 10/19/19 0643 10/20/19 0602 10/20/19 0801 10/20/19 1339 GLU 153* < > 201* < > 116* 122* 164* BUN 46* -- 54* -- 54* -- -- CR 2.28* -- 2.45* -- 2.29* -- -- ALB 3.9 -- 3.6 -- 3.6 -- -- CA 9.8 -- 9.3 -- 9.6 -- -- NA 138 -- 135* -- 141 -- -- K 4.8 -- 4.9 -- 5.0 -- -- CL 104 -- 104 -- 107 -- -- BICARB 29 -- 26 -- 27 -- -- < > = values in this interval not displayed. Lab Results Component Value Date WBC 3.24 10/20/2019 HB 9.6 10/20/2019 HCT 30.2 10/20/2019 PLT 64 10/20/2019 MCV 90.7 10/20/2019 RDW 46.5 10/20/2019 Lab Results Component Value Date TSH 1.72 10/13/2019 TSH 0.47 07/18/2019 TSH 1.33 04/21/2019 No results found for: JESSICA Shea Glycemic Team - [facility] Endocrinology, Diabetes, & Clinical Nutrition Glycemic Team Phone (8AM-5PM): [phone] Glycemic Team Pager: [phone] I spent 37 minutes in the care of this patient. Greater than 50% of the time was spent cou nseling regarding management of diabetes in the hospital and coordination of care with floor nurses and team. This patient s assessment and plan were discussed with consult attending Dr. Odom . Erich Dela Cruz Jr., GRADER MARKER - 10/19/2019 9:21 AM PST INPATIENT GLYCEMIC TEAM CONSULT FOLLOW-UP NOTE ASSESSMENT: 54 y.o. male with a past medical history significant for T2DM (Hgb A1c 8.1% 07/17/19) ESLD 2 /2 EtOH s/p OLTx 10/27 with a course c/b SVT now on amio/metop and HRS/KAR previously on HD now with chronic insufficiency but off HD, re-admitted for failure to thrive, depression and hyperkalemia. We are consulted for glycemic management. AM CBG 169 and above target range. Patient continues on morning steroids. Per ibarra RN, danisha navdeep's last evening dinner meal was not covered as a meal or snack d/t timing issues. CBGs ru nning a bit above target. We do not plan adjustments in regimen at this time. Will continue to monitor closely. Target glucose : Fasting and before meals <140, Random <180 Home Rx : NPH 17 units qAM, NPH 7 units qHS, Lispro 5 units with breakfast, Lispro 10 un its with lunch, Lispro 12 units with dinner Diet : Regular Current Rx : NPH 17 units qAM, NPH 5 units qHS, Lispro 6/10/8 units wm, Moderate SSI IV fluids : N/A Steroids : Prednisone 5 mg qAM Insulin infusion requirement : N/A RECOMMENDATIONS (10/19): These orders have been entered as orders per preference of the primary team: - NPH 17 units qAM; 5units qHS - Lispro 6/10/8 units wm - Lispro 3 units w/ snack - CBG ACHS + Moderate SSI Thank you for the opportunity to contribute to this patient's care. For glycemic needs, contact glycemic team from 8AM-5PM ([phone]) . Outside of that t [place], all questions should be directed to the primary team. INTERVAL HISTORY: Diabetes related history: Prior diagnosis of diabetes? : Y Type of diabetes: : T2DM Duration of diabetes: : 4 months Family hx of DM? : N On insulin at home? : Y HbA1C : Lab Results Component Value Date A1C 8.1 (H) 07/17/2019 On steroids? : Y - Prednisone 5mg qAM Anti-psychotics? : N KAR/CKD? : Y Liver failure? : Y- s/p OLTx 08/16 CHF? : N Pancreatic conditions? : N Diabetes medications prior to admission: : NPH, Lispro ROS: A systems ROS essentially negative except for what is mentioned as positive in HPI or elsew here in this note. PMHx: Past Medical History: Diagnosis Date Cirrhosis (HCC) CKD (chronic kidney disease) PSurgHx: Past Surgical History Procedure Laterality Date Leg surgery FamHx: Family History Problem Relation Liver cancer Neg Hx SOCIAL Hx: Social History Socioeconomic History Marital status: Single [...] file Gets together: Not on file Attends worship service: Not on file Active member of club or organization: Not on file Attends meetings of clubs or organizations: Not on file Relationship status: Not on file Other Topics Concern Not on file Social History Narrative Not on file HOME MEDICATIONS: Medications Prior to Admission Medication Sig Dispense Refill Last Dose Alcohol Swabs (ALCOHOL PREP SWABS) topical pads, medicated Apply 1 each to affected are a five times daily. Use as directed. 200 each 1 10/09/2019 amiodarone 200 mg oral tablet Take 1 tablet by mouth once daily. Indications: Preventio n of Ventricular Fibrillation 30 tablet 1 10/09/2019 aspirin EC 325 mg oral tablet,delayed release (DR/EC) Take 1 tablet by mouth once daily . 100 tablet 5 10/09/2019 atovaquone 750 mg/5 mL oral suspension Take 10 mL by mouth once daily. 150 mL 2 019 Blood Sugar Diagnostic (FREESTYLE LITE STRIPS) miscellaneous (misc) strip Test blood abreu gar four times daily (before each meal and at bedtime). Use as directed. Indications: type 2 diabetes mellitus 150 each 5 10/09/2019 Blood-Glucose Meter (FREESTYLE LITE METER) miscellaneous (misc) kit Use as directed. Us e as directed. 1 each 0 10/09/2019 calcium carbonate 500 mg elemental (1,250 mg total salt) oral tablet Take 2 tablets by mouth once daily at bedtime. Indications: osteoporosis prevention 100 tablet 5 10/09/2019 chlorhexidine 0.12 % mucous membrane mouthwash Use cotton swab to dab chlorhexdine and apply gently to wound. 473 mL 2 10/09/2019 Cholecalciferol (Vitamin D3) 2,000 unit oral tablet Take 1 tablet by mouth once daily. 10/09/2019 insulin lispro (Human) 100 unit/mL subcutaneous insulin pen Inject 5 units under the sk in with breakfast, 10 units under the skin with lunch, 12 units under the skin with dinner. Max dose = 56 units per day Indications: type 2 diabetes mellitus 15 mL 1 10/09/2019 Insulin Mesilla (Disposable) (COMFORT EZ PEN NEEDLES) 31 gauge x 5/16" miscellaneous (m isc) needle Use as directed for 5 insulin injections per day. 150 each 5 10/09/2019 insulin NPH 100 unit/mL (3 mL) subcutaneous [...] evening. Indications: type 2 diabetes isela itus.) 15 mL 1 10/09/2019 lancets (FREESTYLE LANCETS) 28 gauge miscellaneous (misc) misc Test blood sugar four ti mes daily (before each meal and at bedtime). Indications: type 2 diabetes mellitus 150 each 5 10/09/2019 magnesium oxide 250 mg elemental oral tablet Take 2 tablets by mouth two times daily. 1 00 tablet 5 10/09/2019 metoprolol succinate 25 mg oral tablet extended release 24 hr Take 0.5 tablets by mouth once daily. Indications: high blood pressure 15 tablet 5 10/09/2019 mirtazapine 15 mg oral tablet Take 1 tablet by mouth once daily in the evening for 14 d ays. Indications: lack of appetite 14 tablet 0 10/09/2019 Miscellaneous Medical Supply miscellaneous (misc) misc Chlorhexidine prep sticks (small ) 30 each 2 10/09/2019 multivitamin oral tablet Take 1 tablet by mouth once daily. Indications: Treatment To P revent Vitamin Deficiency 100 tablet 5 10/09/2019 mycophenolate 250 mg oral capsule Take 4 capsules by mouth two times daily. Indications : liver transplant rejection prevention 240 capsule 5 10/09/2019 omeprazole 20 mg oral capsule,delayed release(DR/EC) Take 1 capsule by mouth once daily . Indications: heartburn 30 capsule 5 10/09/2019 predniSONE 5 mg oral tablet Take 1 tablet by mouth once daily. Indications: liver trans plant rejection prevention 120 tablet 5 10/09/2019 tacrolimus 1 mg oral capsule Take 2 capsules by mouth two times daily. Indications: niels er transplant rejection prevention 300 capsule 5 10/09/2019 valGANciclovir 450 mg oral tablet Take 1 tablet by mouth three times weekly (on Saturday, Saturday and Saturday). Indications: viral infection prevention 12 tablet 0 CURRENT MEDICATIONS: Current Facility-Administered Medications: acetaminophen (TYLENOL) tablet 325 mg, 325 mg, o ral, Q4H PRN, Charlene Leonard MD, 325 mg at 10/17/19 1014 amiodarone (CORDARONE) tablet 200 mg, 200 mg, oral, DAILY, Charlene Leonard MD, 200 mg at 1 0805 aspirin EC tablet 325 mg, 325 mg, oral, DAILY, Charlene Leonard MD, 325 mg at 10/19/19 0805 atovaquone (MEPRON) suspension 1,500 mg, 1,500 mg, oral, DAILY, Charlene Leonard MD, 1,500 mg at 10/19/19 0806 dextrose 50 % in water IV 25 mL, 25 mL, intravenous, PRN, Charlene Leonard MD enoxaparin (LOVENOX) injection 30 mg, 30 mg, subcutaneous, QPM, Charlene Leonard MD, 30 mg at 10/18/19 214 fludrocortisone (FLORINEF) tablet 0.1 mg, 0.1 mg, oral, DAILY, Nieves Small MD, 0.1 mg a t 10/19/19 0805 glucagon (GLUCAGEN) injection 1 mg, 1 mg, intramuscular, PRN, Charlene Leonard MD glucose chewable tablet 16 g, 16 g, oral, PRN, P Tyson Leonard MD insulin lispro (HUMALOG) injection 1-16 Units, 1-16 Units, subcutaneous, QID, Erich Hernandez Jr., GRADER MARKER, 2 Units at 10/19/19 08 insulin lispro (HUMALOG) injection 10 Units, 10 Units, subcutaneous, QLUNCH, Erich Hernandez Jr., GRADER MARKER, 5 Units at 10/18/19 1450 insulin lispro (HUMALOG) injection 3 Units, 3 Units, subcutaneous, BID SNACK, Jovany Pulliam , ACNP, 3 Units at 10/16/190 insulin lispro (HUMALOG) injection 6 Units, 6 Units, subcutaneous, QAM MEAL, Erich Hernandez Jr., GRADER MARKER, 6 Units at 10/19/19 0803 insulin lispro (HUMALOG) injection 8 Units, 8 Units, subcutaneous, QPM MEAL, Erich Hernandez Jr., GRADER MARKER insulin NPH (HUMULIN N) injection 17 Units, 17 Units, subcutaneous, BEFORE BREAKFAST, P Rey Leonard MD, 17 Units at 10/19/19 0804 insulin NPH (HUMULIN N) injection 5 Units, 5 Units, subcutaneous, HS, Erich Hernandez Jr., FN P, 5 Units at 10/18/192202 magnesium oxide (MAG-OX) tablet 400 mg, 400 mg, oral, BID, Rod Weeks MD, 400 mg at 10/19/19 0805 metoprolol tartrate (LOPRESSOR) tablet 12.5 mg, 12.5 mg, oral, BID, Charlene Leonard MD, 12 .5 mg at 10/19/19 08 mirtazapine (REMERON) tablet 15 mg, 15 mg, oral, QPM, Charlene Leonard MD, 15 mg at 9 2141 multivitamin (THERA VITAMIN) 1 tablet, 1 tablet, oral, DAILY, Charlene Leonard MD, 1 tablet at 10/19/19804 mycophenolate (CELLCEPT) capsule 1,000 mg, 1,000 mg, oral, BID (MMF), Charlene Leonard MD, 1,000 mg at 10/19/19804 omeprazole (PRILOSEC) capsule 20 mg, 20 mg, oral, DAILY, Charlene Leonard MD, 20 mg at 09/22 ondansetron ODT (ZOFRAN ODT) tablet 8 mg, 8 mg, oral, Q12H PRN, Charlene Leonard MD predniSONE (DELTASONE) tablet 5 mg, 5 mg, oral, DAILY, Charlene Leonard MD, 5 mg at 804 tacrolimus capsule 3 mg, 3 mg, oral, BID, Broderick Kern MD, 3 mg at 10/19/19804 valGANciclovir (VALCYTE) tablet 450 mg, 450 mg, oral, Once per day on Sat, Charlene Leonard MD, 450 mg at 10/19/19804 ALLERGIES: Allergies Allergen Reactions Doxycycline Hives and Rash PHYSICAL EXAM: Last Vitals: BP 120/74 (BP Location: Right upper arm, Patient Position: Sitting) | Pulse 71 | Temp 36.5 C (97.7 F) (Oral) | Resp 14 | Ht 1.803 m (5' 11") | Wt 80.1 kg (176 lb 9.4 oz) | SpO2 99% | BMI 24.63 kg/m | BSA 2 m General: NAD. Resp: Normal effort. LAB DATA: Lab Results Component Value Date A1C 8.1 07/17/2019 A1C <3.5 04/21/2019 Last 8 POC CBG's Lab Results Component Value Date GLU 169 (H) 10/19/2019 GLU 201 (H) 10/19/2019 GLU 160 (H) 10/18/2019 GLU 115 (H) 10/18/2019 GLU 136 (H) 10/18/2019 GLU 153 (H) 10/18/2019 GLU 96 10/17/2019 GLU 149 (H) 10/17/2019 Recent Labs 10/17/19 0446 10/18/19 0517 10/19/19 0643 AST 10 11 6 ALT 21 19 18 TBILI 0.3 0.3 0.2* AP 55 54 47* ALB 3.9 3.9 3.6 TP 6.8 6.9 6.1* Recent Labs 10/17/196 10/18/19 0517 10/18/19 2142 10/19/19 0643 10/19/19 0756 GLU 149* < > 153* < > 160* 201* 169* BUN 43* -- 46* -- -- 54* -- CR 2.05* -- 2.28* -- -- 2.45* -- ALB 3.9 -- 3.9 -- -- 3.6 -- CA 9.6 -- 9.8 -- -- 9.3 -- NA 138 -- 138 -- -- 135* -- K 4.9 -- 4.8 -- -- 4.9 -- CL 104 -- 104 -- -- 104 -- BICARB -- -- -- 26 -- < > = values in this interval not displayed. Lab Results Component Value Date WBC 3.26 10/19/2019 HB 9.4 10/19/2019 HCT 28.2 10/19/2019 PLT 64 10/19/2019 MCV 89.0 10/19/2019 RDW 45.4 10/19/2019 Lab Results Component Value Date TSH 1.72 10/13/2019 TSH 0.47 07/18/2019 TSH 1.33 04/21/2019 No results found for: MICROALBCRE DANTE Cantu Jr Glycemic Team [facility] Endocrinology, Diabetes, & Clinical Nutrition Pager [phone] I spent 27 minutes in the care of this patient. Greater than 50% of the time was spent cou nseling regarding management of diabetes in the hospital and coordination of care with with floor nurses and team. This patient's assessment and plan were discussed with consult attending Dr. Odom. Erich Dela Cruz Jr, FNP - 10/18/2019 9:57 AM PST . INPATIENT GLYCEMIC TEAM CONSULT FOLLOW-UP NOTE ASSESSMENT: 54 y.o. male with a past medical history significant for T2DM (Hgb A1c 8.1% 07/17/19) ESLD 2 /2 EtOH s/p OLTx 08/16 with a course c/b SVT now on amio/metop and HRS/KAR previously on HD now with chronic insufficiency but off HD, re-admitted for failure to thrive, depression and hyperkalemia. We are consulted for glycemic management. AM CBG 136 and in target range. Patient continues on morning steroids. Because of CBG drop after dinner and last evening we will lower dinner scheduled insulin and evening basal dosin g for safety. Will continue to monitor closely for continuing glycemic regimen modification needs. Target glucose : Fasting and before meals <140, Random <180 Home Rx : NPH 17 units qAM, NPH 7 units qHS, Lispro 5 units with breakfast, Lispro 10 un its with lunch, Lispro 12 units with dinner Diet : Regular Current Rx : NPH 17 units qAM, NPH 7 units qHS, Lispro 6/10/9 units wm, Moderate SSI IV fluids : N/A Steroids : Prednisone 5 mg qAM Insulin infusion requirement : N/A RECOMMENDATIONS (10/18): These orders have been entered as orders per preference of the primary team: - NPH 17 units qAM; 7=>5units qHS - Lispro 6/10/9=>8 units wm - Lispro 3 units w/ snack - CBG ACHS + Moderate SSI Thank you for the opportunity to contribute to this patient's care. For glycemic needs, contact glycemic team from 8AM-5PM ([phone]) . Outside of that t [place], all questions should be directed to the primary team. INTERVAL HISTORY: Diabetes related history: Prior diagnosis of diabetes? : Y Type of diabetes: : T2DM Duration of diabetes: : 4 months Family hx of DM? : N On insulin at home? : Y HbA1C : Lab Results Component Value Date A1C 8.1 (H) 07/17/2019 On steroids? : Y - Prednisone 5mg qAM Anti-psychotics? : N KAR/CKD? : Y Liver failure? : Y- s/p OLTx 08/16 CHF? : N Pancreatic conditions? : N Diabetes medications prior to admission: : NPH, Lispro ROS: A systems ROS essentially negative except for what is mentioned as positive in HPI or elsew here in this note. PMHx: Past Medical History: Diagnosis Date Cirrhosis (HCC) CKD (chronic kidney disease) PSurgHx: Past Surgical History Procedure Laterality Date Leg surgery FamHx: Family History Problem Relation Liver cancer Neg Hx SOCIAL Hx: Social History Socioeconomic History Marital status: Single [...] file Gets together: Not on file Attends worship service: Not on file Active member of club or organization: Not on file Attends meetings of clubs or organizations: Not on file Relationship status: Not on file Other Topics Concern Not on file Social History Narrative Not on file HOME MEDICATIONS: Medications Prior to Admission Medication Sig Dispense Refill Last Dose Alcohol Swabs (ALCOHOL PREP SWABS) topical pads, medicated Apply 1 each to affected are a five times daily. Use as directed. 200 each 1 10/09/2019 amiodarone 200 mg oral tablet Take 1 tablet by mouth once daily. Indications: Preventio n of Ventricular Fibrillation 30 tablet 1 10/09/2019 aspirin EC 325 mg oral tablet,delayed release (DR/EC) Take 1 tablet by mouth once daily . 100 tablet 5 10/09/2019 atovaquone 750 mg/5 mL oral suspension Take 10 mL by mouth once daily. 150 mL 2 019 Blood Sugar Diagnostic (FREESTYLE LITE STRIPS) miscellaneous (misc) strip Test blood abrue gar four times daily (before each meal and at bedtime). Use as directed. Indications: type 2 diabetes mellitus 150 each 5 10/09/2019 Blood-Glucose Meter (FREESTYLE LITE METER) miscellaneous (misc) kit Use as directed. Us e as directed. 1 each 0 10/09/2019 calcium carbonate 500 mg elemental (1,250 mg total salt) oral tablet Take 2 tablets by mouth once daily at bedtime. Indications: osteoporosis prevention 100 tablet 5 10/09/2019 chlorhexidine 0.12 % mucous membrane mouthwash Use cotton swab to dab chlorhexdine and apply gently to wound. 473 mL 2 10/09/2019 Cholecalciferol (Vitamin D3) 2,000 unit oral tablet Take 1 tablet by mouth once daily. 10/09/2019 insulin lispro (Human) 100 unit/mL subcutaneous insulin pen Inject 5 units under the sk in with breakfast, 10 units under the skin with lunch, 12 units under the skin with dinner. Max dose = 56 units per day Indications: type 2 diabetes mellitus 15 mL 1 10/09/2019 Insulin Mesilla (Disposable) (COMFORT EZ PEN NEEDLES) 31 gauge x 5/16" miscellaneous ([facility]) needle Use as directed for 5 insulin injections per day. 150 each 5 10/09/2019 insulin NPH 100 unit/mL (3 mL) subcutaneous [...] evening. Indications: type 2 diabetes isela itus.) 15 mL 1 10/09/2019 lancets (FREESTYLE LANCETS) 28 gauge miscellaneous (misc) misc Test blood sugar four ti mes daily (before each meal and at bedtime). Indications: type 2 diabetes mellitus 150 each 5 10/09/2019 magnesium oxide 250 mg elemental oral tablet Take 2 tablets by mouth two times daily. 1 00 tablet 5 10/09/2019 metoprolol succinate 25 mg oral tablet extended release 24 hr Take 0.5 tablets by mouth once daily. Indications: high blood pressure 15 tablet 5 10/09/2019 mirtazapine 15 mg oral tablet Take 1 tablet by mouth once daily in the evening for 14 d ays. Indications: lack of appetite 14 tablet 0 10/09/2019 Miscellaneous Medical Supply miscellaneous (misc) misc Chlorhexidine prep sticks (small ) 30 each 2 10/09/2019 multivitamin oral tablet Take 1 tablet by mouth once daily. Indications: Treatment To P revent Vitamin Deficiency 100 tablet 5 10/09/2019 mycophenolate 250 mg oral capsule Take 4 capsules by mouth two times daily. Indications : liver transplant rejection prevention 240 capsule 5 10/09/2019 omeprazole 20 mg oral capsule,delayed release(DR/EC) Take 1 capsule by mouth once daily . Indications: heartburn 30 capsule 5 10/09/2019 predniSONE 5 mg oral tablet Take 1 tablet by mouth once daily. Indications: liver trans plant rejection prevention 120 tablet 5 10/09/2019 tacrolimus 1 mg oral capsule Take 2 capsules by mouth two times daily. Indications: niels er transplant rejection prevention 300 capsule 5 10/09/2019 valGANciclovir 450 mg oral tablet Take 1 tablet by mouth three times weekly (on Saturday, Saturday and Saturday). Indications: viral infection prevention 12 tablet 0 CURRENT MEDICATIONS: Current Facility-Administered Medications: acetaminophen (TYLENOL) tablet 325 mg, 325 mg, o ral, Q4H PRN, Charlene Leonard MD, 325 mg at 10/17/19 1014 amiodarone (CORDARONE) tablet 200 mg, 200 mg, oral, DAILY, Charlene Leonard MD, 200 mg at 1 0853 aspirin EC tablet 325 mg, 325 mg, oral, DAILY, Charlene Leonard MD, 325 mg at 10/18/19 0853 atovaquone (MEPRON) suspension 1,500 mg, 1,500 mg, oral, DAILY, Charlene Leonard MD, 1,500 mg at 10/17/19 0947 dextrose 50 % in water IV 25 mL, 25 mL, intravenous, PRN, Charlene Leonard MD enoxaparin (LOVENOX) injection 30 mg, 30 mg, subcutaneous, QPM, Charlene Leonard MD, 30 mg at 10/17/19 2105 fludrocortisone (FLORINEF) tablet 0.1 mg, 0.1 mg, oral, DAILY, Nieves Small MD, 0.1 mg a t 10/18/19 0853 glucagon (GLUCAGEN) injection 1 mg, 1 mg, intramuscular, PRN, Charlene Leonard MD glucose chewable tablet 16 g, 16 g, oral, PRN, Charlene Leonard MD insulin lispro (HUMALOG) injection 1-16 Units, 1-16 Units, subcutaneous, QID, Erich Hernandez Jr., GRADER MARKER, 2 Units at 10/17/191751 insulin lispro (HUMALOG) injection 10 Units, 10 Units, subcutaneous, QLUNCH, Erich Hernandez Jr., GRADER MARKER insulin lispro (HUMALOG) injection 3 Units, 3 Units, subcutaneous, BID SNACK, Jovany Pulliam , ACNP, 3 Units at 10/16/192049 insulin lispro (HUMALOG) injection 6 Units, 6 Units, subcutaneous, QAM MEAL, Erich Hernandez Jr., GRADER MARKER, 6 Units at 10/18/19753 insulin lispro (HUMALOG) injection 9 Units, 9 Units, subcutaneous, QPM MEAL, Erich Hernandez Jr., GRADER MARKER, 9 Units at 10/17/191751 insulin NPH (HUMULIN N) injection 17 Units, 17 Units, subcutaneous, BEFORE BREAKFAST, Charlene Leonard MD, 17 Units at 10/18/19753 insulin NPH (HUMULIN N) injection 7 Units, 7 Units, subcutaneous, HS, Charlene Leonard MD, 7 Units at 10/16/192050 magnesium oxide (MAG-OX) tablet 400 mg, 400 mg, oral, BID, Rod Weeks MD, 400 mg at 10/18/19 08 metoprolol tartrate (LOPRESSOR) tablet 12.5 mg, 12.5 mg, oral, BID, Charlene Leonard MD, 12 .5 mg at 10/18/19 08 mirtazapine (REMERON) tablet 15 mg, 15 mg, oral, QPM, Charlene Leonard MD, 15 mg at 2105 multivitamin (THERA VITAMIN) 1 tablet, 1 tablet, oral, DAILY, Charlene Leonard MD, 1 tablet at 10/18/19 08 mycophenolate (CELLCEPT) capsule 1,000 mg, 1,000 mg, oral, BID (MMF), Charlene Leonard MD, 1,000 mg at 10/18/19752 omeprazole (PRILOSEC) capsule 20 mg, 20 mg, oral, DAILY, Charlene Leonard MD, 20 mg at 09/21 07/09 075 ondansetron ODT (ZOFRAN ODT) tablet 8 mg, 8 mg, oral, Q12H PRN, Charlene Leonard MD predniSONE (DELTASONE) tablet 5 mg, 5 mg, oral, DAILY, Charlene Leonard MD, 5 mg at 075 tacrolimus capsule 4 mg, 4 mg, oral, BID, Nieves Small MD, 4 mg at 10/18/19 0754 valGANciclovir (VALCYTE) tablet 450 mg, 450 mg, oral, Once per day on Sat, Charlene Leonard MD, 450 mg at 10/16/19 0819 ALLERGIES: Allergies Allergen Reactions Doxycycline Hives and Rash PHYSICAL EXAM: Last Vitals: BP 112/62 (BP Location: Right upper arm, Patient Position: Sitting) | Pulse 72 | Temp 36.6 C (97.9 F) (Oral) | Resp 16 | Ht 1.803 m (5' 11") | Wt 79.3 kg (174 lb 13.2 oz) | SpO2 100% | BMI 24.38 kg/m | BSA 1.99 m General: NAD. Resp: Normal effort. LAB DATA: Lab Results Component Value Date A1C 8.1 07/17/2019 A1C <3.5 04/21/2019 Last 8 POC CBG's Lab Results Component Value Date GLU 136 (H) 10/18/2019 GLU 153 (H) 10/18/2019 GLU 96 10/17/2019 GLU 149 (H) 10/17/2019 GLU 129 (H) 10/17/2019 GLU 149 (H) 10/17/2019 GLU 149 (H) 10/17/2019 GLU 200 (H) 10/16/2019 Recent Labs 10/16/19 0559 10/17/19 0446 10/18/19 0517 AST 17 10 11 ALT 19 21 19 TBILI 0.3 0.3 0.3 AP 50* 55 54 ALB 3.6 3.9 3.9 TP 6.1* 6.8 6.9 Recent Labs 10/16/19 0559 10/17/19 0446 10/17/19 2115 10/18/19 0517 10/18/19 0744 GLU 113* < > 149* < > 96 153* 136* BUN 44* -- 43* -- -- 46* -- CR 1.97* -- 2.05* -- -- 2.28* -- ALB 3.6 -- 3.9 -- -- 3.9 -- CA 9.2 -- 9.6 -- -- 9.8 -- NA 141 -- 138 -- -- 138 -- K 4.9 -- 4.9 -- -- 4.8 -- CL 107 -- 104 -- -- 104 -- BICARB 29 -- 30 -- -- 29 -- < > = values in this interval not displayed. Lab Results Component Value Date WBC 4.40 10/18/2019 HB 10.8 10/18/2019 HCT 34.5 10/18/2019 PLT 81 10/18/2019 MCV 91.3 10/18/2019 RDW 46.8 10/18/2019 Lab Results Component Value Date TSH 1.72 10/13/2019 TSH 0.47 07/18/2019 TSH 1.33 04/21/2019 No results found for: MICROALBCRE DANTE Cantu Jr Glycemic Team [facility] Endocrinology, Diabetes, & Clinical Nutrition Pager [phone] I spent 28 minutes in the care of this patient. Greater than 50% of the time was spent cou nseling regarding management of diabetes in the hospital and coordination of care with with floor nurses and team. This patient's assessment and plan were discussed with consult attending Dr. Odom. Erich Dela Cruz Jr, FNP - 10/17/2019 10:20 AM PST . INPATIENT GLYCEMIC TEAM CONSULT FOLLOW-UP NOTE ASSESSMENT: 54 y.o. male with a past medical history significant for T2DM (Hgb A1c 8.1% 07/17/19) ESLD 2 /2 EtOH s/p OLTx 08/16 with a course c/b SVT now on amio/metop and HRS/KAR previously on HD now with chronic insufficiency but off HD, re-admitted for failure to thrive, depression and hyperkalemia. We are consulted for glycemic management. AM CBG 149 and above target range. Patient continues on morning steroids. Based on CBG resp onse after mealtime insulin given, will increase lispro prandial dosing per mealtime affecte d. This should help mitigate elevated AM CBG by bringing prandial CBGs closer to target rang e the evening prior. Will continue to monitor closely for continuing glycemic regimen modifi cation needs. Target glucose : Fasting and before meals <140, Random <180 Home Rx : NPH 17 units qAM, NPH 7 units qHS, Lispro 5 units with breakfast, Lispro 10 un its with lunch, Lispro 12 units with dinner Diet : Regular Current Rx : NPH 17 units qAM, NPH 7 units qHS, Lispro 6 units TID AC, Mild SSI IV fluids : N/A Steroids : Prednisone 5 mg qAM Insulin infusion requirement : N/A RECOMMENDATIONS (10/17): These orders have been entered as orders per preference of the primary team: ? NPH 17 units qAM ? NPH 7 units qHS ? Lispro 6/6=>10/6=>9 units wm ? Lispro 3 units with snacks. Do not administer correction insulin at time of snack dose in sulin. ? CBG ACHS + Mild=>Moderate SS Thank you for the opportunity to contribute to this patient's care. For glycemic needs, contact glycemic team from 8AM-5PM ([phone], [phone]) . Outside of that t [place], all questions should be directed to the primary team. INTERVAL HISTORY: Diabetes related history: Prior diagnosis of diabetes? : Y Type of diabetes: : T2DM Duration of diabetes: : 4 months Family hx of DM? : N On insulin at home? : Y HbA1C : Lab Results Component Value Date A1C 8.1 (H) 07/17/2019 On steroids? : Y - Prednisone 5mg qAM Anti-psychotics? : N KAR/CKD? : Y Liver failure? : Y- s/p OLTx 08/16 CHF? : N Pancreatic conditions? : N Diabetes medications prior to admission: : NPH, Lispro ROS: A systems ROS essentially negative except for what is mentioned as positive in HPI or elsew here in this note. PMHx: Past Medical History: Diagnosis Date Cirrhosis (HCC) CKD (chronic kidney disease) PSurgHx: Past Surgical History Procedure Laterality Date Leg surgery FamHx: Family History Problem Relation Liver cancer Neg Hx SOCIAL Hx: Social History Socioeconomic History Marital status: Single [...] file Gets together: Not on file Attends worship service: Not on file Active member of club or organization: Not on file Attends meetings of clubs or organizations: Not on file Relationship status: Not on file Other Topics Concern Not on file Social History Narrative Not on file HOME MEDICATIONS: Medications Prior to Admission Medication Sig Dispense Refill Last Dose Alcohol Swabs (ALCOHOL PREP SWABS) topical pads, medicated Apply 1 each to affected are a five times daily. Use as directed. 200 each 1 10/09/2019 amiodarone 200 mg oral tablet Take 1 tablet by mouth once daily. Indications: Preventio n of Ventricular Fibrillation 30 tablet 1 10/09/2019 aspirin EC 325 mg oral tablet,delayed release (DR/EC) Take 1 tablet by mouth once daily . 100 tablet 5 10/09/2019 atovaquone 750 mg/5 mL oral suspension Take 10 mL by mouth once daily. 150 mL 2 019 Blood Sugar Diagnostic (FREESTYLE LITE STRIPS) miscellaneous (misc) strip Test blood abreu gar four times daily (before each meal and at bedtime). Use as directed. Indications: type 2 diabetes mellitus 150 each 5 10/09/2019 Blood-Glucose Meter (FREESTYLE LITE METER) miscellaneous (misc) kit Use as directed. Us e as directed. 1 each 0 10/09/2019 calcium carbonate 500 mg elemental (1,250 mg total salt) oral tablet Take 2 tablets by mouth once daily at bedtime. Indications: osteoporosis prevention 100 tablet 5 10/09/2019 chlorhexidine 0.12 % mucous membrane mouthwash Use cotton swab to dab chlorhexdine and apply gently to wound. 473 mL 2 10/09/2019 Cholecalciferol (Vitamin D3) 2,000 unit oral tablet Take 1 tablet by mouth once daily. 10/09/2019 insulin lispro (Human) 100 unit/mL subcutaneous insulin pen Inject 5 units under the sk in with breakfast, 10 units under the skin with lunch, 12 units under the skin with dinner. Max dose = 56 units per day Indications: type 2 diabetes mellitus 15 mL 1 10/09/2019 Insulin Mesilla (Disposable) (COMFORT EZ PEN NEEDLES) 31 gauge x 5/16" miscellaneous (m isc) needle Use as directed for 5 insulin injections per day. 150 each 5 10/09/2019 insulin NPH 100 unit/mL (3 mL) subcutaneous [...] evening. Indications: type 2 diabetes isela itus.) 15 mL 1 10/09/2019 lancets (FREESTYLE LANCETS) 28 gauge miscellaneous (misc) misc Test blood sugar four ti mes daily (before each meal and at bedtime). Indications: type 2 diabetes mellitus 150 each 5 10/09/2019 magnesium oxide 250 mg elemental oral tablet Take 2 tablets by mouth two times daily. 1 00 tablet 5 10/09/2019 metoprolol succinate 25 mg oral tablet extended release 24 hr Take 0.5 tablets by mouth once daily. Indications: high blood pressure 15 tablet 5 10/09/2019 mirtazapine 15 mg oral tablet Take 1 tablet by mouth once daily in the evening for 14 d ays. Indications: lack of appetite 14 tablet 0 10/09/2019 Miscellaneous Medical Supply miscellaneous (misc) misc Chlorhexidine prep sticks (small ) 30 each 2 10/09/2019 multivitamin oral tablet Take 1 tablet by mouth once daily. Indications: Treatment To P revent Vitamin Deficiency 100 tablet 5 10/09/2019 mycophenolate 250 mg oral capsule Take 4 capsules by mouth two times daily. Indications : liver transplant rejection prevention 240 capsule 5 10/09/2019 omeprazole 20 mg oral capsule,delayed release(DR/EC) Take 1 capsule by mouth once daily . Indications: heartburn 30 capsule 5 10/09/2019 predniSONE 5 mg oral tablet Take 1 tablet by mouth once daily. Indications: liver trans plant rejection prevention 120 tablet 5 10/09/2019 tacrolimus 1 mg oral capsule Take 2 capsules by mouth two times daily. Indications: niesl er transplant rejection prevention 300 capsule 5 10/09/2019 valGANciclovir 450 mg oral tablet Take 1 tablet by mouth three times weekly (on Saturday, Saturday and Saturday). Indications: viral infection prevention 12 tablet 0 CURRENT MEDICATIONS: Current Facility-Administered Medications: acetaminophen (TYLENOL) tablet 325 mg, 325 mg, o ral, Q4H PRN, Charlene Leonard MD, 325 mg at 10/17/19 1014 amiodarone (CORDARONE) tablet 200 mg, 200 mg, oral, DAILY, Charlene Leonard MD, 200 mg at 1 12/18/18 0948 aspirin EC tablet 325 mg, 325 mg, oral, DAILY, Charlene Leonard MD, 325 mg at 10/17/19 0948 atovaquone (MEPRON) suspension 1,500 mg, 1,500 mg, oral, DAILY, Charlene Leonard MD, 1,500 mg at 10/17/19 0947 dextrose 50 % in water IV 25 mL, 25 mL, intravenous, PRN, Charlene Leonard MD enoxaparin (LOVENOX) injection 30 mg, 30 mg, subcutaneous, QPM, Charlene Leonard MD, 30 mg at 10/16/192013 fludrocortisone (FLORINEF) tablet 0.1 mg, 0.1 mg, oral, DAILY, Nieves Small MD, 0.1 mg a t 10/17/19 0948 glucagon (GLUCAGEN) injection 1 mg, 1 mg, intramuscular, PRN, Charlene Leonard MD glucose chewable tablet 16 g, 16 g, oral, PRN, Charlene Leonard MD insulin lispro (HUMALOG) injection 1-16 Units, 1-16 Units, subcutaneous, QID, P Tyson osullivan MD, 1 Units at 10/17/19 1006 insulin lispro (HUMALOG) injection 3 Units, 3 Units, subcutaneous, BID SNACK, Jovany Pulliam , JESSICA, 3 Units at 10/16/192049 insulin lispro (HUMALOG) injection 6 Units, 6 Units, subcutaneous, TID W/MEALS, Treva pa MD, 6 Units at 10/16/19 145 insulin NPH (HUMULIN N) injection 17 Units, 17 Units, subcutaneous, BEFORE BREAKFAST, Charlene Leonard MD, 17 Units at 10/17/19 100 insulin NPH (HUMULIN N) injection 7 Units, 7 Units, subcutaneous, HS, Charlene Leonard MD, 7 Units at 10/16/192050 magnesium oxide (MAG-OX) tablet 400 mg, 400 mg, oral, BID, Rod Weeks MD, 400 mg at 10/17/1948 metoprolol tartrate (LOPRESSOR) tablet 12.5 mg, 12.5 mg, oral, BID, Charlene Leonard MD, 12 .5 mg at 10/17/1948 mirtazapine (REMERON) tablet 15 mg, 15 mg, oral, QPM, Charlene Leonard MD, 15 mg at 9 2135 multivitamin (THERA VITAMIN) 1 tablet, 1 tablet, oral, DAILY, Charlene Leonard MD, 1 tablet at 10/17/1948 mycophenolate (CELLCEPT) capsule 1,000 mg, 1,000 mg, oral, BID (MMF), Charlene Leonard MD, 1,000 mg at 10/17/19947 omeprazole (PRILOSEC) capsule 20 mg, 20 mg, oral, DAILY, Charlene Leonard MD, 20 mg at 09/21 06/08 08 ondansetron ODT (ZOFRAN ODT) tablet 8 mg, 8 mg, oral, Q12H PRN, Charlene Leonard MD predniSONE (DELTASONE) tablet 5 mg, 5 mg, oral, DAILY, Charlene Leonard MD, 5 mg at 9 0948 tacrolimus capsule 4 mg, 4 mg, oral, BID, Nieves Small MD, 4 mg at 10/17/19 0801 valGANciclovir (VALCYTE) tablet 450 mg, 450 mg, oral, Once per day on Sat, P Tyson Leonard MD, 450 mg at 10/16/19 0819 ALLERGIES: Allergies Allergen Reactions Doxycycline Hives and Rash PHYSICAL EXAM: Last Vitals: BP 132/78 (BP Location: Right upper arm, Patient Position: Lying on back) | Pulse 72 | Temp 36.8 C (98.2 F) (Oral) | Resp 16 | Ht 1.803 m (5' 11") | Wt 79.2 kg (174 lb 11.2 oz) | SpO2 99% | BMI 24.37 kg/m | BSA 1.99 m General: NAD. Resp: Normal effort. LAB DATA: Lab Results Component Value Date A1C 8.1 07/17/2019 A1C <3.5 04/21/2019 Last 8 POC CBG's Lab Results Component Value Date GLU 149 (H) 10/17/2019 GLU 149 (H) 10/17/2019 GLU 200 (H) 10/16/2019 GLU 189 (H) 10/16/2019 GLU 145 (H) 10/16/2019 GLU 121 (H) 10/16/2019 GLU 113 (H) 10/16/2019 GLU 186 (H) 10/15/2019 Recent Labs 10/15/19 0516 10/16/19 0559 10/17/19 0446 AST 10 17 10 ALT 19 19 21 TBILI 0.3 0.3 0.3 AP 55 50* 55 ALB 3.6 3.6 3.9 TP 6.1* 6.1* 6.8 Recent Labs 10/15/19 0516 10/16/19 0559 10/16/19 2257 10/17/19 0446 10/17/19 0955 GLU 196* < > 113* < > 200* 149* 149* BUN 46* -- 44* -- -- 43* -- CR 2.06* -- 1.97* -- -- 2.05* -- ALB 3.6 -- 3.6 -- -- 3.9 -- CA 9.2 -- 9.2 -- -- 9.6 -- NA 140 -- 141 -- -- 138 -- K 5.1* -- 4.9 -- -- 4.9 -- CL 107 -- 107 -- -- 104 -- BICARB 28 -- 29 -- -- 30 -- < > = values in this interval not displayed. Lab Results Component Value Date WBC 3.98 10/17/2019 HB 10.8 10/17/2019 HCT 34.3 10/17/2019 PLT 73 10/17/2019 MCV 90.7 10/17/2019 RDW 46.0 10/17/2019 Lab Results Component Value Date TSH 1.72 10/13/2019 TSH 0.47 07/18/2019 TSH 1.33 04/21/2019 No results found for: MICROALBCRE DANTE Cantu Jr Glycemic Team [facility] Endocrinology, Diabetes, & Clinical Nutrition Pager [phone] I spent 29 minutes in the care of this patient. Greater than 50% of the time was spent cou nseling regarding management of diabetes in the hospital and coordination of care with with floor nurses and team. This patient's assessment and plan were discussed with consult attending Dr. Odom. Kenia Dunbar MD - 10/16/2019 11:40 AM PSTFormatting of this note might be different from the origin al. INPATIENT GLYCEMIC TEAM EVALUATION NOTE ASSESSMENT: 54 y.o. male with a past medical history significant for T2DM (Hgb A1c 8.1% 07/17/19) ESLD 2 /2 EtOH s/p OLTx 08/16 with a course c/b SVT now on amio/metop and HRS/KAR previously on HD now with chronic insufficiency but off HD, re-admitted for failure to thrive, depression and hyperkalemia. We are consulted for glycemic management. Patient is on morning steroids. Overall glucoses have improved with adjustments made, but does trend up during the day so will increase meal insulin a bit. Will continue to monitor closely for continuing glycemic regimen modification needs. Target glucose : Fasting and before meals <140, Random <180 Home Rx : NPH 17 units qAM, NPH 7 units qHS, Lispro 5 units with breakfast, Lispro 10 un its with lunch, Lispro 12 units with dinner Diet : Regular Current Rx : NPH 17 units qAM, NPH 7 units qHS, Lispro 5 units TID AC IV fluids : N/A Steroids : Prednisone 5 mg qAM Insulin infusion requirement : N/A RECOMMENDATIONS: These orders have been entered as orders per preference of the primary team: ? NPH 17 units qAM ? NPH 7 units qHS ? Lispro 5 --> 6 units TID AC ? Start Lispro 3 units with snacks. Do not administer correction insulin at time of snack d ose insulin. ? CBG ACHS + Mild SS Thank you for the opportunity to contribute to this patient's care. For glycemic needs, contact glycemic team from 8AM-5PM ([phone], [phone]) . Outside of that t [place], all questions should be directed to the primary team. INTERVAL HISTORY: Diabetes related history: Prior diagnosis of diabetes? : Y Type of diabetes: : T2DM Duration of diabetes: : 4 months Family hx of DM? : N On insulin at home? : Y HbA1C : Lab Results Component Value Date A1C 8.1 (H) 07/17/2019 On steroids? : Y - Prednisone 5mg qAM Anti-psychotics? : N KAR/CKD? : Y Liver failure? : Y- s/p OLTx 08/16 CHF? : N Pancreatic conditions? : N Diabetes medications prior to admission: : NPH, Lispro ROS: A complete systems ROS essentially negative except for what is mentioned as positive in HPI or elsewhere in this note. PMHx: Past Medical History: Diagnosis Date Cirrhosis (HCC) CKD (chronic kidney disease) PSurgHx: Past Surgical History Procedure Laterality Date Leg surgery FamHx: Family History Problem Relation Liver cancer Neg Hx SOCIAL Hx: Social History Socioeconomic History Marital status: Single [...] file Gets together: Not on file Attends worship service: Not on file Active member of club or organization: Not on file Attends meetings of clubs or organizations: Not on file Relationship status: Not on file Other Topics Concern Not on file Social History Narrative Not on file HOME MEDICATIONS: Medications Prior to Admission Medication Sig Dispense Refill Last Dose Alcohol Swabs (ALCOHOL PREP SWABS) topical pads, medicated Apply 1 each to affected are a five times daily. Use as directed. 200 each 1 10/09/2019 amiodarone 200 mg oral tablet Take 1 tablet by mouth once daily. Indications: Preventio n of Ventricular Fibrillation 30 tablet 1 10/09/2019 aspirin EC 325 mg oral tablet,delayed release (DR/EC) Take 1 tablet by mouth once daily . 100 tablet 5 10/09/2019 atovaquone 750 mg/5 mL oral suspension Take 10 mL by mouth once daily. 150 mL 2 019 Blood Sugar Diagnostic (FREESTYLE LITE STRIPS) miscellaneous (misc) strip Test blood abreu gar four times daily (before each meal and at bedtime). Use as directed. Indications: type 2 diabetes mellitus 150 each 5 10/09/2019 Blood-Glucose Meter (FREESTYLE LITE METER) miscellaneous (misc) kit Use as directed. Us e as directed. 1 each 0 10/09/2019 calcium carbonate 500 mg elemental (1,250 mg total salt) oral tablet Take 2 tablets by mouth once daily at bedtime. Indications: osteoporosis prevention 100 tablet 5 10/09/2019 chlorhexidine 0.12 % mucous membrane mouthwash Use cotton swab to dab chlorhexdine and apply gently to wound. 473 mL 2 10/09/2019 Cholecalciferol (Vitamin D3) 2,000 unit oral tablet Take 1 tablet by mouth once daily. 10/09/2019 insulin lispro (Human) 100 unit/mL subcutaneous insulin pen Inject 5 units under the sk in with breakfast, 10 units under the skin with lunch, 12 units under the skin with dinner. Max dose = 56 units per day Indications: type 2 diabetes mellitus 15 mL 1 10/09/2019 Insulin Mesilla (Disposable) (COMFORT EZ PEN NEEDLES) 31 gauge x 5/16" miscellaneous (m isc) needle Use as directed for 5 insulin injections per day. 150 each 5 10/09/2019 insulin NPH 100 unit/mL (3 mL) subcutaneous [...] evening. Indications: type 2 diabetes isela itus.) 15 mL 1 10/09/2019 lancets (FREESTYLE LANCETS) 28 gauge miscellaneous (misc) misc Test blood sugar four ti mes daily (before each meal and at bedtime). Indications: type 2 diabetes mellitus 150 each 5 10/09/2019 magnesium oxide 250 mg elemental oral tablet Take 2 tablets by mouth two times daily. 1 00 tablet 5 10/09/2019 metoprolol succinate 25 mg oral tablet extended release 24 hr Take 0.5 tablets by mouth once daily. Indications: high blood pressure 15 tablet 5 10/09/2019 mirtazapine 15 mg oral tablet Take 1 tablet by mouth once daily in the evening for 14 d ays. Indications: lack of appetite 14 tablet 0 10/09/2019 Miscellaneous Medical Supply miscellaneous (misc) misc Chlorhexidine prep sticks (small ) 30 each 2 10/09/2019 multivitamin oral tablet Take 1 tablet by mouth once daily. Indications: Treatment To P revent Vitamin Deficiency 100 tablet 5 10/09/2019 mycophenolate 250 mg oral capsule Take 4 capsules by mouth two times daily. Indications : liver transplant rejection prevention 240 capsule 5 10/09/2019 omeprazole 20 mg oral capsule,delayed release(DR/EC) Take 1 capsule by mouth once daily . Indications: heartburn 30 capsule 5 10/09/2019 predniSONE 5 mg oral tablet Take 1 tablet by mouth once daily. Indications: liver trans plant rejection prevention 120 tablet 5 10/09/2019 tacrolimus 1 mg oral capsule Take 2 capsules by mouth two times daily. Indications: niels er transplant rejection prevention 300 capsule 5 10/09/2019 valGANciclovir 450 mg oral tablet Take 1 tablet by mouth three times weekly (on Saturday, Saturday and Saturday). Indications: viral infection prevention 12 tablet 0 CURRENT MEDICATIONS: Current Facility-Administered Medications: acetaminophen (TYLENOL) tablet 325 mg, 325 mg, o ral, Q4H PRN, Charlene Leonard MD amiodarone (CORDARONE) tablet 200 mg, 200 mg, oral, DAILY, Charlene Leonard MD, 200 mg at 1 12/17/18817 aspirin EC tablet 325 mg, 325 mg, oral, DAILY, Charlene Leonard MD, 325 mg at 10/16/19818 atovaquone (MEPRON) suspension 1,500 mg, 1,500 mg, oral, DAILY, Charlene Leonard MD, 1,500 mg at 10/16/19818 dextrose 50 % in water IV 25 mL, 25 mL, intravenous, PRN, Charlene Leonard MD enoxaparin (LOVENOX) injection 30 mg, 30 mg, subcutaneous, QPM, Charlene Leonard MD, 30 mg at 10/15/192050 fludrocortisone (FLORINEF) tablet 0.1 mg, 0.1 mg, oral, DAILY, Nieves Small MD, 0.1 mg a t 10/16/19940 furosemide (LASIX) tablet 20 mg, 20 mg, oral, BID ( and ), Broderick Kern MD, 20 mg at 10/16/19818 glucagon (GLUCAGEN) injection 1 mg, 1 mg, intramuscular, PRN, Charlene Leonard MD glucose chewable tablet 16 g, 16 g, oral, PRN, Charlene Leonard MD insulin lispro (HUMALOG) injection 1-16 Units, 1-16 Units, subcutaneous, QID, Charlene osullivan MD, 2 Units at 10/14/192150 insulin lispro (HUMALOG) injection 3 Units, 3 Units, subcutaneous, BID SNACK, JESSICA Nagy, 3 Units at 10/15/192212 insulin lispro (HUMALOG) injection 6 Units, 6 Units, subcutaneous, TID W/MEALS, Treva pa MD insulin NPH (HUMULIN N) injection 17 Units, 17 Units, subcutaneous, BEFORE BREAKFAST, Charlene Leonard MD, 17 Units at 10/16/19 08 insulin NPH (HUMULIN N) injection 7 Units, 7 Units, subcutaneous, HS, Charlene Leonard MD, 7 Units at 10/15/19 2213 magnesium oxide (MAG-OX) tablet 400 mg, 400 mg, oral, BID, Rod Weeks MD, 400 mg at 10/16/19 0819 magnesium sulfate in water IV (RTU) 4 g, 4 g, intravenous, ONCE, Nieves Small MD, 4 g at 10/16/19 0936 metoprolol tartrate (LOPRESSOR) tablet 12.5 mg, 12.5 mg, oral, BID, Charlene Leonard MD, 12 .5 mg at 10/16/19 08 mirtazapine (REMERON) tablet 15 mg, 15 mg, oral, QPM, Charlene Leonard MD, 15 mg at 9 214 multivitamin (THERA VITAMIN) 1 tablet, 1 tablet, oral, DAILY, Charlene Leonard MD, 1 tablet at 10/16/19 08 mycophenolate (CELLCEPT) capsule 1,000 mg, 1,000 mg, oral, BID (MMF), Charlene Leonard MD, 1,000 mg at 10/16/19 08 omeprazole (PRILOSEC) capsule 20 mg, 20 mg, oral, DAILY, Charlene Leonard MD, 20 mg at 09/21 05/08 08 ondansetron ODT (ZOFRAN ODT) tablet 8 mg, 8 mg, oral, Q12H PRN, Charlene Leonard MD predniSONE (DELTASONE) tablet 5 mg, 5 mg, oral, DAILY, Charlene Leonard MD, 5 mg at 9 08 tacrolimus capsule 4 mg, 4 mg, oral, BID, Nieves Small MD, 4 mg at 10/16/19 08 valGANciclovir (VALCYTE) tablet 450 mg, 450 mg, oral, Once per day on Sat, Charlene Leonard MD, 450 mg at 10/16/19 08 ALLERGIES: Allergies Allergen Reactions Doxycycline Hives and Rash PHYSICAL EXAM: Last Vitals: BP 129/72 | Pulse 70 | Temp 36.7 C (98.1 F) (Oral) | Resp 16 | Ht 1. 803 m (5' 11") | Wt 80.9 kg (178 lb 4.8 oz) | SpO2 98% | BMI 24.87 kg/m | BSA 2.01 m General: NAD Pulmonary: normal effort LAB DATA: Lab Results Component Value Date A1C 8.1 07/17/2019 A1C <3.5 04/21/2019 Last 8 POC CBG's Lab Results Component Value Date GLU 121 (H) 10/16/2019 GLU 113 (H) 10/16/2019 GLU 186 (H) 10/15/2019 GLU 135 (H) 10/15/2019 GLU 124 (H) 10/15/2019 GLU 104 (H) 10/15/2019 GLU 205 (H) 10/15/2019 GLU 196 (H) 10/15/2019 Recent Labs 10/14/1945010/15/19 0516 10/16/19 0559 AST 9 10 17 ALT 17 19 19 TBILI 0.3 0.3 0.3 AP 54 55 50* ALB 3.6 3.6 3.6 TP 6.0* 6.1* 6.1* Recent Labs 10/14/191 10/15/19 0516 10/15/19 2159 10/16/19 0559 10/16/19 0805 GLU 107* < > 196* < > 186* 113* 121* BUN 49* -- 46* -- -- 44* -- CR 2.12* -- 2.06* -- -- 1.97* -- ALB 3.6 -- 3.6 -- -- 3.6 -- CA 9.1 -- 9.2 -- -- 9.2 -- NA 140 -- 140 -- -- 141 -- K 5.0 -- 5.1* -- -- 4.9 -- CL 107 -- 107 -- -- 107 -- BICARB 28 -- 28 -- -- 29 -- < > = values in this interval not displayed. Lab Results Component Value Date WBC 3.78 10/16/2019 HB 9.6 10/16/2019 HCT 30.2 10/16/2019 PLT 65 10/16/2019 MCV 91.2 10/16/2019 RDW 47.1 10/16/2019 Lab Results Component Value Date TSH 1.72 10/13/2019 TSH 0.47 07/18/2019 TSH 1.33 04/21/2019 No results found for: MICROALBCRE Treva Odom MD Coffee Shop Attendant Conner Friedtzer Diabetes [facility] [place] [id number] I spent 20 minutes in the care of this patient. Greater than 50% of the time was spent cou nseling regarding management of diabetes in the hospital and coordination of care with with floor nurses and team. Jovany Harrison [facility] - 10/15/2019 9:26 AM PST . INPATIENT GLYCEMIC TEAM EVALUATION NOTE ASSESSMENT: 54 y.o. male with a past medical history significant for T2DM (Hgb A1c 8.1% 07/17/19) ESLD 2 /2 EtOH s/p OLTx 08/16 with a course c/b SVT now on amio/metop and HRS/KAR previously on HD now with chronic insufficiency but off HD, re-admitted for failure to thrive, depression and hyperkalemia. We have been consulted for glycemic management. Patient is currently on a daily steroid and has had hyperglycemia before meals on current insulin regimen. After discussing with patien t he states he has snacks between meals and at night. AM CBG outside of target range. Will p rovide snack dose insulin based on this information to help control blood glucose prior to m eals. Will continue to monitor closely for continuing glycemic regimen modification needs. Target glucose : Fasting and before meals <140, Random <180 Home Rx : NPH 17 units qAM, NPH 7 units qHS, Lispro 5 units with breakfast, Lispro 10 un its with lunch, Lispro 12 units with dinner Diet : Regular Current Rx : NPH 17 units qAM, NPH 7 units qHS, Lispro 5 units TID AC IV fluids : N/A Steroids : Prednisone 5 mg qAM Insulin infusion requirement : N/A RECOMMENDATIONS: These orders have been entered as orders per preference of the primary team: ? NPH 17 units qAM ? NPH 7 units qHS ? Lispro 5 units TID AC ? Start Lispro 3 units with snacks. Do not administer correction insulin at time of snack d ose insulin. ? CBG ACHS + Mild SS Thank you for the opportunity to contribute to this patient's care. For glycemic needs, contact glycemic team from 8AM-5PM ([phone], [phone]) . Outside of that t [place], all questions should be directed to the primary team. INTERVAL HISTORY: - DATE OF ADMISSION: 10/12/2019 DATE OF INITIAL EVALUATION: 10/15/19 REASON FOR EVALUATION: Hyperglycemia Diabetes related history: Prior diagnosis of diabetes? : Y Type of diabetes: : T2DM Duration of diabetes: : 4 months Family hx of DM? : N On insulin at home? : Y HbA1C : Lab Results Component Value Date A1C 8.1 (H) 07/17/2019 On steroids? : Y - Prednisone 5mg qAM Anti-psychotics? : N KAR/CKD? : Y Liver failure? : Y- s/p OLTx 08/16 CHF? : N Pancreatic conditions? : N Diabetes medications prior to admission: : NPH, Lispro ROS: A complete systems ROS essentially negative except for what is mentioned as positive in HPI or elsewhere in this note. PMHx: Past Medical History: Diagnosis Date Cirrhosis (HCC) CKD (chronic kidney disease) PSurgHx: Past Surgical History Procedure Laterality Date Leg surgery FamHx: Family History Problem Relation Liver cancer Neg Hx SOCIAL Hx: Social History Socioeconomic History Marital status: Single [...] file Gets together: Not on file Attends worship service: Not on file Active member of club or organization: Not on file Attends meetings of clubs or organizations: Not on file Relationship status: Not on file Other Topics Concern Not on file Social History Narrative Not on file HOME MEDICATIONS: Medications Prior to Admission Medication Sig Dispense Refill Last Dose Alcohol Swabs (ALCOHOL PREP SWABS) topical pads, medicated Apply 1 each to affected are a five times daily. Use as directed. 200 each 1 10/09/2019 amiodarone 200 mg oral tablet Take 1 tablet by mouth once daily. Indications: Preventio n of Ventricular Fibrillation 30 tablet 1 10/09/2019 aspirin EC 325 mg oral tablet,delayed release (DR/EC) Take 1 tablet by mouth once daily . 100 tablet 5 10/09/2019 atovaquone 750 mg/5 mL oral suspension Take 10 mL by mouth once daily. 150 mL 2 019 Blood Sugar Diagnostic (FREESTYLE LITE STRIPS) miscellaneous (misc) strip Test blood abreu gar four times daily (before each meal and at bedtime). Use as directed. Indications: type 2 diabetes mellitus 150 each 5 10/09/2019 Blood-Glucose Meter (FREESTYLE LITE METER) miscellaneous (misc) kit Use as directed. Us e as directed. 1 each 0 10/09/2019 calcium carbonate 500 mg elemental (1,250 mg total salt) oral tablet Take 2 tablets by mouth once daily at bedtime. Indications: osteoporosis prevention 100 tablet 5 10/09/2019 chlorhexidine 0.12 % mucous membrane mouthwash Use cotton swab to dab chlorhexdine and apply gently to wound. 473 mL 2 10/09/2019 Cholecalciferol (Vitamin D3) 2,000 unit oral tablet Take 1 tablet by mouth once daily. 10/09/2019 insulin lispro (Human) 100 unit/mL subcutaneous insulin pen Inject 5 units under the sk in with breakfast, 10 units under the skin with lunch, 12 units under the skin with dinner. Max dose = 56 units per day Indications: type 2 diabetes mellitus 15 mL 1 10/09/2019 Insulin Mesilla (Disposable) (COMFORT EZ PEN NEEDLES) 31 gauge x 5/16" miscellaneous (m isc) needle Use as directed for 5 insulin injections per day. 150 each 5 10/09/2019 insulin NPH 100 unit/mL (3 mL) subcutaneous [...] evening. Indications: type 2 diabetes isela itus.) 15 mL 1 10/09/2019 lancets (FREESTYLE LANCETS) 28 gauge miscellaneous (misc) misc Test blood sugar four ti mes daily (before each meal and at bedtime). Indications: type 2 diabetes mellitus 150 each 5 10/09/2019 magnesium oxide 250 mg elemental oral tablet Take 2 tablets by mouth two times daily. 1 00 tablet 5 10/09/2019 metoprolol succinate 25 mg oral tablet extended release 24 hr Take 0.5 tablets by mouth once daily. Indications: high blood pressure 15 tablet 5 10/09/2019 mirtazapine 15 mg oral tablet Take 1 tablet by mouth once daily in the evening for 14 d ays. Indications: lack of appetite 14 tablet 0 10/09/2019 Miscellaneous Medical Supply miscellaneous (misc) misc Chlorhexidine prep sticks (small ) 30 each 2 10/09/2019 multivitamin oral tablet Take 1 tablet by mouth once daily. Indications: Treatment To P revent Vitamin Deficiency 100 tablet 5 10/09/2019 mycophenolate 250 mg oral capsule Take 4 capsules by mouth two times daily. Indications : liver transplant rejection prevention 240 capsule 5 10/09/2019 omeprazole 20 mg oral capsule,delayed release(DR/EC) Take 1 capsule by mouth once daily . Indications: heartburn 30 capsule 5 10/09/2019 predniSONE 5 mg oral tablet Take 1 tablet by mouth once daily. Indications: liver trans plant rejection prevention 120 tablet 5 10/09/2019 tacrolimus 1 mg oral capsule Take 2 capsules by mouth two times daily. Indications: niels er transplant rejection prevention 300 capsule 5 10/09/2019 valGANciclovir 450 mg oral tablet Take 1 tablet by mouth three times weekly (on Saturday, Saturday and Saturday). Indications: viral infection prevention 12 tablet 0 CURRENT MEDICATIONS: Current Facility-Administered Medications: acetaminophen (TYLENOL) tablet 325 mg, 325 mg, o ral, Q4H PRN, Charlene Leonard MD amiodarone (CORDARONE) tablet 200 mg, 200 mg, oral, DAILY, Charlene Leonard MD, 200 mg at 1 12/16/18 08 aspirin EC tablet 325 mg, 325 mg, oral, DAILY, Charlene Leonard MD, 325 mg at 10/15/19836 atovaquone (MEPRON) suspension 1,500 mg, 1,500 mg, oral, DAILY, Charlene Leonard MD, 1,500 mg at 10/15/19834 dextrose 50 % in water IV 25 mL, 25 mL, intravenous, PRN, Charlene Leonard MD enoxaparin (LOVENOX) injection 30 mg, 30 mg, subcutaneous, QPM, Charlene Leonard MD, 30 mg at 10/14/192147 glucagon (GLUCAGEN) injection 1 mg, 1 mg, intramuscular, PRN, Charlene Leonard MD glucose chewable tablet 16 g, 16 g, oral, PRN, Charlene Leonard MD insulin lispro (HUMALOG) injection 1-16 Units, 1-16 Units, subcutaneous, QID, Charlene osullivan MD, 2 Units at 10/14/192150 insulin lispro (HUMALOG) injection 5 Units, 5 Units, subcutaneous, TID W/MEALS, Charlene freeman MD, 5 Units at 10/14/192150 insulin NPH (HUMULIN N) injection 17 Units, 17 Units, subcutaneous, BEFORE BREAKFAST, Charlene Leonard MD, 17 Units at 10/15/19624 insulin NPH (HUMULIN N) injection 7 Units, 7 Units, subcutaneous, HS, Charlene Leonard MD, 7 Units at 10/14/192150 magnesium oxide (MAG-OX) tablet 400 mg, 400 mg, oral, BID, Rod Weeks MD, 400 mg at 10/15/19836 metoprolol tartrate (LOPRESSOR) tablet 12.5 mg, 12.5 mg, oral, BID, Charlene Leonard MD, 12 .5 mg at 10/15/19 0837 mirtazapine (REMERON) tablet 15 mg, 15 mg, oral, QPM, Charlene Leonard MD, 15 mg at 9 2148 multivitamin (THERA VITAMIN) 1 tablet, 1 tablet, oral, DAILY, Charlene Leonard MD, 1 tablet at 10/15/19 0837 mycophenolate (CELLCEPT) capsule 1,000 mg, 1,000 mg, oral, BID (MMF), Charlene Leonard MD, 1,000 mg at 10/15/19 0835 omeprazole (PRILOSEC) capsule 20 mg, 20 mg, oral, DAILY, Charlene Leonard MD, 20 mg at 09/21 04/08 0837 ondansetron ODT (ZOFRAN ODT) tablet 8 mg, 8 mg, oral, Q12H PRN, Charlene Leonard MD predniSONE (DELTASONE) tablet 5 mg, 5 mg, oral, DAILY, Charlene Leonard MD, 5 mg at 9 0837 tacrolimus capsule 3 mg, 3 mg, oral, BID, Charlene Leonard MD, 3 mg at 10/15/19 0835 valGANciclovir (VALCYTE) tablet 450 mg, 450 mg, oral, Once per day on Sat, Charlene Leonard MD, 450 mg at 10/14/19 0816 ALLERGIES: Allergies Allergen Reactions Doxycycline Hives and Rash PHYSICAL EXAM: Last Vitals: BP 134/75 (BP Location: Right upper arm, Patient Position: Lying on back) | Pulse 66 | Temp 36.9 C (98.4 F) (Oral) | Resp 16 | Ht 1.803 m (5' 11") | Wt 80.9 kg (178 lb 6.4 oz) | SpO2 95% | BMI 24.88 kg/m | BSA 2.01 m General: NAD Pulmonary: normal effort LAB DATA: Lab Results Component Value Date A1C 8.1 07/17/2019 A1C <3.5 04/21/2019 Last 8 POC CBG's Lab Results Component Value Date GLU 205 (H) 10/15/2019 GLU 196 (H) 10/15/2019 GLU 172 (H) 10/14/2019 GLU 205 (H) 10/14/2019 GLU 116 (H) 10/14/2019 GLU 128 (H) 10/14/2019 GLU 119 (H) 10/14/2019 GLU 107 (H) 10/14/2019 Recent Labs 10/13/19 0513 10/14/191 10/15/19 0516 AST 14 9 10 ALT 15 17 19 TBILI 0.4 0.3 0.3 AP 57 54 55 ALB 3.7 3.6 3.6 TP 6.3* 6.0* 6.1* Recent Labs 10/13/19 0513 10/14/1945010/14/19 2359 10/15/19 0516 10/15/19 0615 GLU 194* < > 107* < > 172* 196* 205* BUN 52* -- 49* -- -- 46* -- CR 1.95* -- 2.12* -- -- 2.06* -- ALB 3.7 -- 3.6 -- -- 3.6 -- CA 9.4 -- 9.1 -- -- 9.2 -- NA 137 -- 140 -- -- 140 -- K 5.4* -- 5.0 -- -- 5.1* -- CL 104 -- 107 -- -- 107 -- BICARB 27 -- 28 -- -- 28 -- < > = values in this interval not displayed. Lab Results Component Value Date WBC 3.66 10/15/2019 HB 9.4 10/15/2019 HCT 29.6 10/15/2019 PLT 70 10/15/2019 MCV 91.9 10/15/2019 RDW 47.7 10/15/2019 Lab Results Component Value Date TSH 1.72 10/13/2019 TSH 0.47 07/18/2019 TSH 1.33 04/21/2019 No results found for: DARIANALBCJESSICA Carr Glycemic Team - [facility] Endocrinology, Diabetes, & Clinical Nutrition Glycemic Team Phone (8AM-5PM): [phone] Glycemic Team Pager: [phone] I spent 73 minutes in the care of this patient. Greater than 50% of the time was spent cou nseling regarding management of diabetes in the hospital and coordination of care with with floor nurses and team. This patients assessment and plan were discussed with consult attending Dr. Odom. Shelley Britton MD - 10/13/2019 10:33 AM PSTPsychiatry Attending Note Date of services: 10/13/2019 I reviewed the record, interviewed the patient on 10/13/2019 at 9:30am. I also talked to pt 's mother who was visiting. I agree with Dr. Adams's findings, formulation and recomm endations. Pt agrees to cont mirtazapine, he agrees to see therapist as well, but is worried about his housing and consequently where to see the therapist given lack of housing. He denies SI, no HI, again today he performs well on attention tasks, but would monitor closely for delirium given complex medical presentation and med regimen. - cont mirtazapine 15mg po qhs - please ask SW to meet with pt and family and explore housing options, as well as arrange f/u with mental health therapist (PCP can cont mirtazapine if no psychiatrist is available) - psych will sign off, but please call with any other question or concern Shelley Hyatt MD Coffee Shop Attendantcirculation crew leader Dipesh Slaughter MD - 10/12/2019 5:01 PM PSTAssociated Order(s): IP CONSULT TO PSYCHIATRYFormatting of this not e might be different from the original. INITIAL PSYCHIATRY CONSULTATION NOTE Date: 10/12/2019 5:01 PM Author: Dipesh Adams MD Legal Status: voluntary IDENTIFICATION: Doug Duran is a 54 y.o. male with past history of liver transpla nt for alcoholic cirrhosis on 08/16/2019 c/b KAR and renal insufficiency on HD 3x/wk, alcoho l use disorder in remission, directly admitted on 10/12 after found to have hyperkalemia, AK I on labs in addition to FTT. INFORMANT(S): --patient --chart --primary team --Mother (Priyanka) [phone] REASON FOR CONSULT: Depression/Anxiety Management CHIEF COMPLAINT or PRESENTING PROBLEM: Hyperkalemia, KAR, FTT HISTORY OF PRESENT ILLNESS: Mr. Duran was encountered resting in bed this evening. He is able to recall being called ba juani to the hospital for hospital admission this afternoon following his PT session when they discovered his hyperkalemia and KAR. His psychiatric decline began around , per Mr. Duran, when he began to experience friction with his mother, who is his current caregive r, and his sister, who was supposed to relieve his mother as caregiver at times, began to ex perience family issues of her own preventing her from visiting. He describes his issues as " anxiety" rather than depression with most of his worries concerning his health and medical u ncertainty. Denies associated muscle tension, frequent worries, changes in sleep (sleeps 3-4 hrs nightly chronically), anhedonia, or amotivation. Has had significant decline in appetite (down 22.5kg in one month per chart review) and some difficulty with concentrating. Does de ny any SI - "I've fought for 18 months, I'm not about to stop now." He has two similar episo pablo in the past, both of which related to periods of stress and lack of control (eg. After b reaking his leg) Upon gathering collateral from mother, she reports him having increasing amounts of difficu lty since the transplant. 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 All of which he has lost as part of his me dical condition. Additionally, he has 4 children who are all estranged and have not made con tact with Mr. Duran since his illness. His mother Priyanka believes that these circumstances, i n addition to their friction after spending years apart, have set the stage for his current depression. It has now manifested to the point where he rarely leaves the bed unless his bed side urine campbell becomes full, doesn't eat, and seems withdrawn from everything. Unclear if he has been taking his medications as well. Priyanka plans to leave in several weeks to take care of her ailing which has also placed additional stress on Mr. Duran. REVIEW OF PSYCHIATRIC SYMPTOMS: Depressive Symptoms: as per HPI Manic Symptoms: none reported Anxiety Symptoms: worries about health, finances Psychotic Symptoms: none reported PAST PSYCHIATRIC HISTORY: Prior diagnoses: none Prior Hospitalizations: none Outpatient Care: none Drug Treatment History: AA prior to alcohol cessation Medication Trials: Mirtazapine started 10/05/19 Suicide Attempts: None Violence:None PAST MEDICAL HISTORY: Past Medical History: Diagnosis Date Cirrhosis (HCC) CKD (chronic kidney disease) ALLERGIES: Allergies Allergen Reactions Doxycycline Hives and Rash PRIOR TO ADMISSION MEDICATIONS: Medications Prior to Admission Medication Sig Dispense Refill Last Dose Alcohol Swabs (ALCOHOL PREP SWABS) topical pads, medicated Apply 1 each to affected are a five times daily. Use as directed. 200 each 1 10/09/2019 amiodarone 200 mg oral tablet Take 1 tablet by mouth once daily. Indications: Preventio n of Ventricular Fibrillation 30 tablet 1 10/09/2019 aspirin EC 325 mg oral tablet,delayed release (DR/EC) Take 1 tablet by mouth once daily . 100 tablet 5 10/09/2019 atovaquone 750 mg/5 mL oral suspension Take 10 mL by mouth once daily. 150 mL 2 019 Blood Sugar Diagnostic (FREESTYLE LITE STRIPS) miscellaneous (misc) strip Test blood abreu gar four times daily (before each meal and at bedtime). Use as directed. Indications: type 2 diabetes mellitus 150 each 5 10/09/2019 Blood-Glucose Meter (FREESTYLE LITE METER) miscellaneous (misc) kit Use as directed. Us e as directed. 1 each 0 10/09/2019 calcium carbonate 500 mg elemental (1,250 mg total salt) oral tablet Take 2 tablets by mouth once daily at bedtime. Indications: osteoporosis prevention 100 tablet 5 10/09/2019 chlorhexidine 0.12 % mucous membrane mouthwash Use cotton swab to dab chlorhexdine and apply gently to wound. 473 mL 2 10/09/2019 Cholecalciferol (Vitamin D3) 2,000 unit oral tablet Take 1 tablet by mouth once daily. 10/09/2019 insulin lispro (Human) 100 unit/mL subcutaneous insulin pen Inject 5 units under the sk in with breakfast, 10 units under the skin with lunch, 12 units under the skin with dinner. Max dose = 56 units per day Indications: type 2 diabetes mellitus 15 mL 1 10/09/2019 Insulin Mesilla (Disposable) (COMFORT EZ PEN NEEDLES) 31 gauge x 5/16" miscellaneous (m isc) needle Use as directed for 5 insulin injections per day. 150 each 5 10/09/2019 insulin NPH 100 unit/mL (3 mL) subcutaneous [...] evening. Indications: type 2 diabetes isela itus.) 15 mL 1 10/09/2019 lancets (FREESTYLE LANCETS) 28 gauge miscellaneous (misc) misc Test blood sugar four ti mes daily (before each meal and at bedtime). Indications: type 2 diabetes mellitus 150 each 5 10/09/2019 magnesium oxide 250 mg elemental oral tablet Take 2 tablets by mouth two times daily. 1 00 tablet 5 10/09/2019 metoprolol succinate 25 mg oral tablet extended release 24 hr Take 0.5 tablets by mouth once daily. Indications: high blood pressure 15 tablet 5 10/09/2019 mirtazapine 15 mg oral tablet Take 1 tablet by mouth once daily in the evening for 14 d ays. Indications: lack of appetite 14 tablet 0 10/09/2019 Miscellaneous Medical Supply miscellaneous (misc) misc Chlorhexidine prep sticks (small ) 30 each 2 10/09/2019 multivitamin oral tablet Take 1 tablet by mouth once daily. Indications: Treatment To P revent Vitamin Deficiency 100 tablet 5 10/09/2019 mycophenolate 250 mg oral capsule Take 4 capsules by mouth two times daily. Indications : liver transplant rejection prevention 240 capsule 5 10/09/2019 omeprazole 20 mg oral capsule,delayed release(DR/EC) Take 1 capsule by mouth once daily . Indications: heartburn 30 capsule 5 10/09/2019 predniSONE 5 mg oral tablet Take 1 tablet by mouth once daily. Indications: liver trans plant rejection prevention 120 tablet 5 10/09/2019 tacrolimus 1 mg oral capsule Take 2 capsules by mouth two times daily. Indications: niels er transplant rejection prevention 300 capsule 5 10/09/2019 valGANciclovir 450 mg oral tablet Take 1 tablet by mouth three times weekly (on Saturday, Saturday and Saturday). Indications: viral infection prevention 12 tablet 0 INPATIENT MEDICATIONS: Current Facility-Administered Medications Medication Dose Route Frequency acetaminophen (TYLENOL) tablet 325 mg 325 mg oral Q4H PRN amiodarone (CORDARONE) tablet 200 mg 200 mg oral DAILY aspirin EC tablet 325 mg 325 mg oral DAILY atovaquone (MEPRON) suspension 1,500 mg 1,500 mg oral DAILY calcium gluconate 2 g in dextrose (D5) 5 % IV 2 g intravenous ONCE dextrose 50 % in water IV 25 mL 25 mL intravenous PRN enoxaparin (LOVENOX) injection 30 mg 30 mg subcutaneous QPM glucagon (GLUCAGEN) injection 1 mg 1 mg intramuscular PRN glucose chewable tablet 16 g 16 g oral PRN insulin lispro (HUMALOG) injection 1-16 Units 1-16 Units subcutaneous QID insulin lispro (HUMALOG) injection 5 Units 5 Units subcutaneous TID W/MEALS [START ON 10/13/2019] insulin NPH (HUMULIN N) injection 17 Units 17 Units subcutaneous BEFORE BREAKFAST insulin NPH (HUMULIN N) injection 7 Units 7 Units subcutaneous HS lactated ringers (LR) infusion 100 mL/hr intravenous CONTINUOUS metoprolol tartrate (LOPRESSOR) tablet 12.5 mg 12.5 mg oral BID mirtazapine (REMERON) tablet 15 mg 15 mg oral QPM multivitamin (THERA VITAMIN) 1 tablet 1 tablet oral DAILY mycophenolate (CELLCEPT) capsule 1,000 mg 1,000 mg oral BID (MMF) omeprazole (PRILOSEC) capsule 20 mg 20 mg oral DAILY ondansetron ODT (ZOFRAN ODT) tablet 8 mg 8 mg oral Q12H PRN predniSONE (DELTASONE) tablet 5 mg 5 mg oral DAILY tacrolimus capsule 2 mg 2 mg oral BID valGANciclovir (VALCYTE) tablet 450 mg 450 mg oral Once per day on Sat FAMILY HISTORY: - Father committed suicide Family History Problem Relation Liver cancer Neg Hx SOCIAL HISTORY: - Lives in single story home with mother Priyanka, rent $2000/mo - Depends on IPG, receives $2250/mo - Has 4 children, estranged - 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, 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 All other ROS negative PHYSICAL EXAMINATION: BP 139/87 (BP Location: Right upper arm, Patient Position: Lying on back) | Pulse 72 | Te mp 36.4 C (97.5 F) (Oral) | Resp 18 | Ht 1.803 m (5' 11") | Wt 79.5 kg (175 lb 4.3 oz ) | SpO2 100% | BMI 24.44 kg/m | BSA 2 m PSYCHIATRIC EXAMINATION: General appearance: Middle aged male, appears older than stated age. Thin, decon ditioned. Wearing sweatshirt. NAD Musculo-skeletal: strength: deconditioned muscle tone: normal gait: Not observed abnormal movements: NO Speech: volume: Low articulation: Mumbling, coherent Thought process: rate: coherent associations: logical Mood: "anxious" Affect: dysphoric, tearful at times Thought content: hallucinations: NO delusions: NO suicidal ideation: NO homicidal ideation: NO obsessions: NO Level of consciousness: Awake/alert Orientation: fully oriented Memory: recent: intact intermediate: intact remote: intact Attention span / concentration: Able to do 5 digit span backwards Fund of knowledge / vocabulary: intact Language functions: intact Insight: Fair Judgment: Fair - knows he needs treatment Labs: Lab Results Component Value Date NA 132 (L) 10/12/2019 K 6.8 (HH) 10/12/2019 CL 103 10/12/2019 BICARB 26 10/12/2019 BUN 54 (H) 10/12/2019 CR 2.07 (H) 10/12/2019 GLU 250 (H) 10/12/2019 CA 9.7 10/12/2019 AST 12 10/12/2019 ALT 18 10/12/2019 AP 67 10/12/2019 TBILI 0.5 10/12/2019 TP 7.2 10/12/2019 ALB 4.1 10/12/2019 Lab Results Lab Test Name Results Date/Time WBC 5.34 10/12/19 WBC 6.3 07/07/19 RBC 3.81 10/12/19 RBC 2.95 07/07/19 HB 11.2 10/12/19 HB 11.2 07/07/19 HCT 34.5 10/12/19 HCT 28.4 08/16/19 HCT 30.9 07/07/19 MCV 90.6 10/12/19 MCV 105.8 07/07/19 MCHC 32.5 10/12/19 MCHC 36 07/07/19 RDW 47.6 10/12/19 RDW 12.5 07/07/19 PLT 101 10/12/19 PLT 57 07/07/19 NEUTROPERC 69.0 10/12/19 NEUTROPERC 77.8 07/07/19 LYMPHPERC 23.2 10/12/19 LYMPHPERC 13.7 07/07/19 MONOPERC 5.2 10/12/19 MONOPERC 6.2 07/07/19 EOSPERC 1.7 10/12/19 EOSPERC 1.6 07/07/19 BASOPERC 0.7 10/12/19 BASOPERC 0.6 07/07/19 NEUTROPHILCO 3.68 10/12/19 MONOCYTECO 0.28 10/12/19 EOSCO 0.09 10/12/19 BASOPHILCO 0.04 10/12/19 TSH (mIU/L) Date Value 07/18/2019 0.47 (L) FREET4 Date Value Ref Range Status 07/18/2019 1.6 (H) 0.6 - 1.2 ng/dL Final HEMOGLOBIN A1C (%) Date Value 07/17/2019 8.1 (H) No results found for: CHOL, LDL, HDL, TRI No components found for: INR Lab Results Lab Test Name Results Date/Time URINECOLOR Yudy 08/15/19 URINEPROTEIN Negative 05/20/19 URINEPH 5.5 05/20/19 URINEGLUCOSE Negative 05/20/19 Lab Results Lab Test Name Results Date/Time URINEAMPPHOS None 10/05/19 URINEBACTERI None 10/05/19 URINECAOX None 10/05/19 URINECAST 0 10/05/19 URINEGRANCAS 0 10/05/19 URINEHYALINE 1 10/05/19 URINEMUCOUS None 10/05/19 URINEEPITH None 10/05/19 URINEREDCELL 19 10/05/19 URINESQEPI None 10/05/19 URINEPO4 None 10/05/19 URINEWBC <1 10/05/19 URINEYEAST None 10/05/19 URINE CULTURE [facility] (no units) Date Value 07/17/2019 No growth (<1000 cfu/mL) after 24 hours CULTURE RESULT (no units) Date Value 10/05/2019 Final Report:No Bacteria or Yeast isolated at 5 days. 10/05/2019 Final Report:No Bacteria or Yeast isolated at 5 days. URINE SCREEN FOR CULTURE (no units) Date Value 10/05/2019 Negative Last Drug Screen: Lab Results Lab Test Name Results Date/Time BARBITURATE Negative 08/15/19 BENZO Negative 08/15/19 CANNABIS Negative 08/15/19 COCAINE Negative 08/15/19 OPIATE Negative 08/15/19 ETHANOL Date Value Ref Range Status 08/15/2019 <10 <10 mg/dL Final EKG: Lab Results Component Value Date RATE 82 08/20/2019 ATRIALRATE 82 08/20/2019 TX 195 08/20/2019 QRS 146 08/20/2019 QT 390 08/20/2019 PAXIS 38 08/20/2019 RAXIS 81 08/20/2019 TAXIS 133 08/20/2019 IMAGING: - CTAP (10/05): IMPRESSION: Since 04/22/2019, interval status post liver transplant with expected postoperative changes. Etiology of the patient's symptoms not identified. - CT Head w/o Contrast (10/05): IMPRESSION: No acute intracranial findings. Assessment: Doug Duran is a 54 y.o. male with past history of liver transplant for alcoholic cirrhosis on 08/16/2019 c/b KAR and renal insufficiency on HD 3x/wk, alcohol use disorder in remission, directly admitted on 10/12 after found to have hyperkalemia, KAR on labs in karin tion to FTT. Psychiatry was consulted for evaluation and management of depression on HD 0. Mental Status Exam was significant for mumbling speech of low volume, dysphoric and tearful affect, denial of suicidal ideations. Also of note is Mr. Duran's description of current sy mptoms as "anxiety" despite description appearing to be more consistent with depressed mood with potential anxious features. His presentation is concerning for major depressive episode , particularly given collateral from mother of psychomotor retardation, withdrawal, poor erinn etite, depressed mood, difficulty concentrating since his transplant though his reports, alb eit likely minimized, point more towards adjustment disorder given his sub-criterion symptom s focusing on major transition of transplant. Prior to definitive diagnosis, further clarifi cation of symptomology with Mr. Duran would be of utility. Regardless, appears that Mr. Duran would likely benefit from antidepressant. Recently start ed on mirtazapine from ED which would have combined effect of treating FTT and depression. C onsideration should also be given to initiation of SNRI (ie duloxetine) to address serious v egetative symptoms as well. Will defer final choice to daytime team prior to former recommen dations. SAFETY Concern for imminent risk of suicide is deemed to be low. However, this patient does have s ome concerning risk factors for suicide, including but not limited to male gender, single st atus, suicide by family member or friend, work problems, chronic medical illness, chronic pa in. Mitigating factors for suicide risk include but are not limited to lack of psychotic sym ptoms, lack of access to weapons, lack of alcohol or drug use, lack of current SI, no histor y of previous SA/SIB, positive social support. Based on the above suicide risk and protective factors, we determine the patient to be of l ow imminent risk for suicide. Yet, they remain at chronically elevated risk above baseline due to sex, race, medical illness, and family history of suicide. Modifiable risk factors to be addressed during hospitalization through recommendations for appropriate pharmacotherapy, establishment of outpatient follow-up treatment/transferof care , and discussion with family, discussion with other providers. The patient should be instructed to call crisis, 911, or go to the nearest ED if he/she fel t suicidal and self-injurious after discharge. DSM 5 Diagnosis: - Unspecified Depressive Disorder - R/o Major Depressive Disorder, Recurrent Episode, Moderate - R/o Adjustment Disorder with Depressed Mood Recommendations: - Defer decision for antidepressant to daytime team - Establish outpatient mental health follow-up -If additional questions or concerns may page personal financial representative psychiatry. Thank you for the opportunity to be a part of this patient's care. We will continue to foll ow. Please contact the [facility] psychiatry consult team M-F from 8am- 4:00pm or psychiatry on-ca ll at other times if questions or concerns arise. Recommendations discussed via phone with Nieves Small MD at ~6pm Consultation was reviewed with Dr. Rogelio Stevens, the attending psychiatrist on the consult service, who agrees with the assessment and plan. Dipesh Adams MD do cumented in this encounter Miscellaneous Notes Plan of Care - Padmini Walden RN - 10/27/2019 12:19 PM PSTNursing Discharge Note Discharge Date: 10/27/2019 Additional Discharge Information: Discharge orders received, AVS printed and reviewed w/ pt , pt verbalizes understanding. 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 Per SW note and pt report, pt's son will be staying with pt this week. Pt to go home w/ medical transportation Discharge Nurse: Vale Walden RN andoff - Mario Alberto Pereira RN - 04/2020 5:11 AM PSTNursing Handoff Patient Daily Goal: would like to go home today (10/26/19 0900) [facility] IP NURSE HANDOFF: [facility] hospital course events: Admitted 10/12 - 54YOM h/o ESLD 2/ EtOH s/p OLTx 08/16 with a course c/b SVT now on amio/metop and HRS/KAR previously on HD now wit h chronic insufficiency but off HD, re-admitted for failure to thrive, depression and hyperk alemia. SAFETY Patient/Family Target: Donell will remain free from falls/injuries Progress to Target: No Change As evidenced by: Donell has been ambulating independently in room; demonstrates a steady gait. Calls appropri ately for assistance. COMFORT/ANXIETY/BEHAVIOR Patient/Family Target: Donell will report <4/10 pain Progress to Target: Improving As evidenced by: Donell denied pain throughout the day and continued throughout the night. Slept well and had no complaints RESTORATIVE MEASURES/SELF-MANAGEMENT Patient/Family Target: Donell will increase mobility. Progress to Target: No Change As evidenced by: Up ad hever in room, ambulated in hallway today with OT. NURSING ASSESSMENT & RECOMMENDATIONS FORWARD Nursing Assessment of Patient Stability Risk: Moderately stable Recommendations Forward: -Encourage activity as tolerated, and provide assistance as necess david. -Promote nutrition-poor intake. Needs multiple reminders to order food and takes a long angela e eating. Likes Nepro supplements. -Monitor CBGs, multiple insulin orders. -Psych consult performed on 10/13, pt exhibiting depression and had a stressful year. - Previously on tele d/t tachycardia-atrial flutter, pt back to NSR now with a period of abreu stained ST this morning, which self-resolved without any intervention. - Telemetry dc/d prior to start of shift, VSS although he was slightly hypotensive during t he evening, notified and scheduled metopolol held. Barriers to discharge: Per PT note, no longer recommending SNF. Pt reports he is able to ta ke care of himself and has a rental until November. Inquired about pt's son being his suppor t system, Pt reports he will talk to his son on the phone tonight to establish plan. DC home 10/27 pending AM labs andoff - Tamika Tripp R N - 10/26/2019 6:59 PM PSTNursing Handoff Patient Daily Goal: would like to go home today (10/26/19 0900) [facility] IP NURSE HANDOFF: [facility] hospital course events: Admitted 10/12 - 54YOM h/o ESLD / EtOH s/p OLTx 08/16 with a course c/b SVT now on amio/metop and HRS/KAR previously on HD now wit h chronic insufficiency but off HD, re-admitted for failure to thrive, depression and hyperk alemia. SAFETY Patient/Family Target: Donell will remain free from falls/injuries Progress to Target: No Change As evidenced by: Donell has been ambulating independently in room; demonstrates a steady gait. Ambulated in h allway today, w/ tachycardia but otherwise no other symptoms noted. COMFORT/ANXIETY/BEHAVIOR Patient/Family Target: Donell will report <4/10 pain Progress to Target: Improving As evidenced by: Donell denied pain throughout the day. RESTORATIVE MEASURES/SELF-MANAGEMENT Patient/Family Target: Donell will increase mobility. Progress to Target: No Change As evidenced by: Up ad hever in room, ambulated in hallway today with OT. NURSING ASSESSMENT & RECOMMENDATIONS FORWARD Nursing Assessment of Patient Stability Risk: Moderately stable Recommendations Forward: -Encourage activity as tolerated, and provide assistance as necess david. -Promote nutrition-poor intake. Needs multiple reminders to order food and takes a long angela e eating. Likes Nepro supplements. -Monitor CBGs, multiple insulin orders. -Psych consult performed on 10/13, pt exhibiting depression and had a stressful year. - On telemetry d/t tachycardia-atrial flutter, pt back to NSR now with a period of sustaine d ST this morning, which self-resolved without any intervention. Barriers to discharge: Per PT note, no longer recommending SNF. Pt reports he is able to ta ke care of himself and has a rental until November. Inquired about pt's son being his suppor t system, Pt reports he will talk to his son on the phone tonight to establish plan. DC home 10/26? andoff - Shirley Alexandre RN - 10/26/2019 2:54 PM PSTNursing Handoff Patient Daily Goal: would like to go home today (10/26/19 0900) [facility] IP NURSE HANDOFF: [facility] hospital course events: Admitted 10/12 - 54YOM h/o ESLD / EtOH s/p OLTx 08/16 with a course c/b SVT now on amio/metop and HRS/KAR previously on HD now wit h chronic insufficiency but off HD, re-admitted for failure to thrive, depression and hyperk alemia. SAFETY Patient/Family Target: Donell will remain free from falls/injuries Progress to Target: No Change As evidenced by: Donell has been ambulating independently in room; demonstrates a steady gait. Ambulated in h allway today, w/ tachycardia but otherwise no other symptoms noted. COMFORT/ANXIETY/BEHAVIOR Patient/Family Target: Donell will report <4/10 pain Progress to Target: Improving As evidenced by: Donell denied pain throughout the day. RESTORATIVE MEASURES/SELF-MANAGEMENT Patient/Family Target: Donell will increase mobility. Progress to Target: No Change As evidenced by: Up ad hever in room, ambulated in hallway today with OT. NURSING ASSESSMENT & RECOMMENDATIONS FORWARD Nursing Assessment of Patient Stability Risk: Moderately stable Recommendations Forward: -Encourage activity as tolerated, and provide assistance as necess david. -Promote nutrition-poor intake. Needs multiple reminders to order food and takes a long angela e eating. Likes Nepro supplements. -Monitor CBGs, multiple insulin orders. -Psych consult performed on 10/13, pt exhibiting depression and had a stressful year. - On telemetry d/t tachycardia-atrial flutter, pt back to NSR now with a period of sustaine d ST this morning, which self-resolved without any intervention. Barriers to discharge: Per PT note, no longer recommending SNF. Pt reports he is able to ta ke care of himself and has a rental until November. Inquired about pt's son being his suppor t system, Pt reports he will talk to his son on the phone tonight to establish plan. DC home 10/26? lan of Care - Jaja Bajwara - 10/26/2019 9:06 AM PSTFormatting of this note might be different from the maru odell Occupational Therapy Evaluation [id number] DOUG DURAN Date of : 1965 Start of care: 10/12/2019 Date of onset: 10/12/2019 Referring/Attending Practitioner: Rod Hartley* Primary/Referral Diagnosis/ICD-9: K70.31 Alcoholic cirrhosis of liver with ascites (HCC) E43 Severe protein-calorie malnutrition (HCC) Insurance: Payor: [facility] [place] MEDICAID / Plan: [facility] OR / Product Type: Medicaid / Service period from: 10/26/2019 to 01/24/2020 Time in: 0839 Time out: 0900 Pt admitted on 10/12/2019, hospital day # 14. Pt seen on: 4A Precautions: mild fall risk Indication for Occupational Therapy Consult: Assess pt's level of function for ADLs and fun ctional mobility, educate pt and/or family on precautions and safety with ADL performance, d etermine adaptive equipment and safety techniques for discharge planning Brief Hospital Course: Per MD note, "54YOM h/o ESLD 2/ EtOH s/p OLTx 08/16 with a course c /b SVT now on amio/metop and HRS/KAR previously on HD now with chronic insufficiency but off HD, re-admitted for failure to thrive, depression and hyperkalemia. Uptrending Cr, CTM. Abl e to meet caloric intake needs, will dc to home tomorrow" Past Medical History: Diagnosis Date Cirrhosis (HCC) CKD (chronic kidney disease) Past Surgical History Procedure Laterality Date Leg surgery Occupational Profile Present in Session: Rehab Student Living Environment: Pt has been living in a rental since last admission. Was living with h is mom but she may be going to [place]. Has other family in the area who are checking on him an d providing assistance as needed. His son is going to be staying with him for a week. Bathroom: Shower tub but typically showers at his aunt's house as it's a walk-in shower Adaptive Equipment: FWW Prior Level of Function: Since last admission pt has been independent with ADLs (was initi ally receiving assistance with socks but states he can now complete). Has been independent w ith mobility, not out in community very often. Not driving, had family driving him. Reports he can do his own medication management but mom had been assisting because there were a lot of changes Preexisting body functions/structures/psychosocial concerns: See above Pt/family occupational goals: To go home Analysis of Occupational Performance Vitals: Stable as per observation Pain: Did not report Cognitive skills Orientation: Ox4 Level of alertness: Awake and alert Insight: Good Memory: NT Attention: Good Command following: Able to follow multi-step commands CAM: negative Emotional regulation and social skills: Appropriate Motor and praxis skills Hand Dominance: NT UE joint integrity with passive range of motion - Left: WFL - Right: WFL UE strength - Left: WFL - Right: WFL Fine motor control: WFL Muscle tone: Intact Edema: None observed Skin Integrity: All visible skin appears intact Postural alignment: WFL Sensory perceptual skills Vision: NT Auditory: Responds to auditory stimuli Proprioception: NT Tactile: Denies any numbness or tingling Functional performance skills [facility] DAILY ACTIVITY - How much help from another person does the patient currently need f or: Lower body dressing 4 - None Bathing 3 - Little Toileting 4 - None Upper body dressing 4 - None Personal grooming 4 - None Eating meals 4 - None [facility] Daily Activity Total Score 23 1 - Unable to do/total assistance = Total/Dependent Assist 2 - A lot = Maximum/Moderate Assistance 3 - A little = Minimal/Contact Guard Assist/Supervision 4 None = Modified independent/Independent Interpretation of [facility] Short Form Daily Activity: CMS Modifier [...] Functional Transfer & Mobility: Supine to sit: Modified independent with head of bed elevated Sit to stand: Supervision Transfer to chair: supervision Ambulation with ADLs: SBA Treatment Provided Pt transferred to sitting edge of bed, supervision with sitting balance. Able to don socks bilaterally with supervision. Supervision with transfer to/from toilet. Ambulated 1 lap arou [address] unit with standby assist, no assistive device. Ended session: Patient left in bed, supine, call button in reach, nursing aware and pres ent. Assessment Pt presents today with decreased ADL performance and functional mobility, limited by decrea sed balance and decreased activity tolerance. Pt plans to return to his rental where he will have assistance available to him. Will continue to benefit from acute OT to regain independ ence focusing on ADLs, functional mobility, and assessment of pt's ability to appropriately manage his medication. ACTIVITY/ENVIRONMENTAL RECOMMENDATIONS: *Nursing to re-assess per shift as needed.* - lights on, curtains open - out of bed as tolerated - in chair for all meals or 3x/day Reasoning & Judgment: Moderately Structured Environment - Collaborate on plan for the day - Problem solve collaboratively - Safety: Reinforce fall strategies that are working - Support patient s goals for ADL and mobility success - Breakdown information into tasks/steps - Help patient take ownership of things patient can do - Discuss daily, seasonal events DISCHARGE RECOMMENDATIONS: Home with assist PRN EQUIPMENT RECOMMENDATIONS: None GOALS: Problem: OT Goals- Adult Goal: Other Goal Description Pt will be independent with tub transfer simulation. Pt will demonstrate appropriately ability to management medication via pillbox. Outcome: Gradual progress toward goal Plan: - Planned Frequency: 1 more visit Time in: 0839 Time out: 0900 Patient was seen for an OT evaluation and a total of 10 minutes of direct one on one skille d OT treatment which included: - ADL Trainin minutes Personal factors/Comorbidities Evaluation Complexity (Moderate): Occupational profile and medical/therapy history is expanded. Assessment identifies 3-5 performance deficits relating to physical, cognitive and psychoso cial skills that results in activity limitations or participation restrictions. Clinical decision making is of moderate analytic complexity, involving consideration of mul tiple treatment options. Patient may present with comorbidities that affect occupational performance. Minimal to moderate modification of tasks or assistance is necessary to complete evaluation component. The patient requires services that can be safely and effectively performed only by a qualif ied therapist to address the aforementioned and highlighted problems and goals. Goals discussed and agreed upon with Doug and family. Sharyn Bajwa OTR/L Pager #[phone] andoff - Padmini Walden RN - 0 10/25/2019 10:29 AM PSTNursing Handoff Patient Daily Goal: Rest (10/23/191999) [facility] IP NURSE HANDOFF: [facility] hospital course events: Admitted 10/12 - 54YOM h/o ESLD / EtOH s/p OLTx 08/16 with a course c/b SVT now on amio/metop and HRS/KAR previously on HD now wit h chronic insufficiency but off HD, re-admitted for failure to thrive, depression and hyperk alemia. SAFETY Patient/Family Target: Donell will remain free from falls/injuries Progress to Target: No Change As evidenced by: Donell has been ambulating independently in room; demonstrates a steady gait. Ambulated in h allway today, w/ tachycardia but otherwise no other symptoms noted. COMFORT/ANXIETY/BEHAVIOR Patient/Family Target: Donell will report <4/10 pain Progress to Target: Improving As evidenced by: Donell denied pain throughout the day. RESTORATIVE MEASURES/SELF-MANAGEMENT Patient/Family Target: Donell will increase mobility. Progress to Target: No Change As evidenced by: Up ad hever in room, ambulated in hallway today w/ encouragement. NURSING ASSESSMENT & RECOMMENDATIONS FORWARD Nursing Assessment of Patient Stability Risk: Moderately stable Recommendations Forward: -Encourage activity as tolerated, and provide assistance as necess david. -Promote nutrition-poor intake. Needs multiple reminders to order food and takes a long angela e eating. Likes Nepro supplements. -Monitor CBGs, multiple insulin orders. -Psych consult performed on 10/13, pt exhibiting depression and had a stressful year. - On telemetry d/t tachycardia-atrial flutter, pt back to NSR this evening. Team is aware. Barriers to discharge: Per PT note, no longer recommending SNF. Pt reports he is able to ta ke care of himself and has a rental until November. Inquired about pt's son being his suppor t system, Pt reports he will talk to his son on the phone tonight to establish plan. DC home 10/26? andoff - Reina Barahona RN - 0 10/25/2019 12:43 AM PSTNursing Handoff Patient Daily Goal: Rest (10/23/191999) [facility] IP NURSE HANDOFF: [facility] hospital course events: Admitted 10/12 - 54YOM 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 SAFETY Patient/Family Target: Donell will remain free from falls/injuries Progress to Target: No Change As evidenced by: Donell has been ambulating independently in room; demonstrates a steady gait. COMFORT/ANXIETY/BEHAVIOR Patient/Family Target: Donell will report <4/10 pain Progress to Target: Improving As evidenced by: Donell denied pain throughout the night. RESTORATIVE MEASURES/SELF-MANAGEMENT Patient/Family Target: Donell will increase mobility. Progress to Target: No Change As evidenced by: Up ad hever in room, worked w/ PT on 10/24. NURSING ASSESSMENT & RECOMMENDATIONS FORWARD Nursing Assessment of Patient Stability Risk: Moderately stable Recommendations Forward: -Encourage activity as tolerated, and provide assistance as necess david. -Promote nutrition-poor intake. Needs multiple reminders to order food and takes a long angela e eating. Likes Nepro supplements. -Monitor CBGs, multiple insulin orders. -Psych consult performed on 10/13, pt exhibiting depression and had a stressful year. -Tachycardia-atrial flutter. Team is aware, no changes to plan of care unless symptomatic; continue monitoring. Barriers to discharge: DC home 10/26? andoff - Padmini Walden RN - 0 10/24/2019 2:52 PM PSTNursing Handoff Patient Daily Goal: Rest (10/23/191999) [facility] IP NURSE HANDOFF: [facility] hospital course events: Admitted 10/12 - 54YOM 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 SAFETY Patient/Family Target: Donell will remain free from falls/injuries Progress to Target: No Change As evidenced by: Donell has been ambulating independently in room, demonstrates a steady gait. COMFORT/ANXIETY/BEHAVIOR Patient/Family Target: Donell will report <4/10 pain Progress to Target: Improving As evidenced by: Donell denied pain throughout the day. RESTORATIVE MEASURES/SELF-MANAGEMENT Patient/Family Target: Donell will increase mobility. Progress to Target: No Change As evidenced by: Up ad hever, worked w/ PT today NURSING ASSESSMENT & RECOMMENDATIONS FORWARD Nursing Assessment of Patient Stability Risk: Moderately stable Recommendations Forward: -Encourage activity as tolerated, and provide assistance as necess david. -Promote nutrition-poor intake. Needs multiple reminders to order food and takes a long angela e eating. Likes Nepro supplements. -Monitor CBGs, multiple insulin orders. -Psych consult performed on 10/13, pt exhibiting depression and had a stressful year. -Tachycardic, now on telemetry, per television station manager pt in [facility], team is aware, no changes to plan of care unless symptomatic, continue monitoring. EKG done today Barriers to discharge: DC home versus SNF? lan of Care - Nancy Ness, PT - 10/24/2019 11:46 AM PSTFormatting of this note might be different from the [facility] Treatment Note 10/24/2019 12:25 PM Time in: 1122 Time out: 1146 Hospital Day: 12 Present during session other than PT and patient: nonee Patient was seen for a total of 24 minutes of direct one on one skilled Physical Therapy wh ich included 24 minutes of functional mobility re assessment, stair training and therapeutic exercise. Brief Hospital Course: 54YOM h/o ESLD 2/2 EtOH s/p OLTx 08/16 with a course c/b SVT now on amio/metop and HRS/KAR previously on HD now with chronic insufficiency but off HD, re-admit jeannette for failure to thrive, depression and hyperkalemia. Calorie counts ongoing. Prealbumin p ending. May need tube feeding via Dob[place] if he cannot eat enough. Psychiatry evaluated and will continue mirtazapine. Social work consulted. Will start kayexelate three times weekly. As per MD notes,10/16/19 Status Update: none Relevant Precautions: none Subjective: "I feel fine." Pain: no c/o pain throughout session Objective: Patient received in supine, agrees to therapy Bed mobility: bed features:none Boosting/scooting:Not Tested Supine to sit:independent Sit to supine: independent Transfers: sit to stand: independent stand to sit: independent equipment used: none Gait : Level of assist: supervision Equipment used: none Distance: 500 Technique/sequencing used: step through sequencing Comments: retroversion of bilateral hips thus demonstrates toes pointed outward, safe and steady Stairs: number of stairs: 12+5 Rails: 1 rail, R side Equipment: 1 rail level of assist: supervision Sequencing: step over sequencing for ascent and descent, step to sequencing for ascent and descent Other: improved safety/stability with step to sequencing Therapeutic exercise: Gait for cardio aerobic exercise x 500' Seated LAQ BLE x 5 with 3 second hold, focus on slow controlled movement. Supine SAQ with bolster, BLE x 10. Patient happy he can perform this independent in bed Single leg stance without UE support, BLE 2 x 5-8 seconds. Gait training: -stair climbing with step to sequencing for improved balance safety for ascent and descent, patient demonstrates improved stability. - head turns, 180 deg. Turns, speed walk. All performed variable with gait for balance eddie gomez [facility] BASIC MOBILITY Difficulty turning over in [...] A Little - Minimal/Contact Guard Assist/Superv ision [facility] Basic Mobility Total Score 22 Interpretation of [facility] Short Form - Basic Mobility: CMS [...] 0% impaired, limited, or restricted Ended session: Patient left supine with call pearson and personal items within reach. direct c are nurse updated. ASSESSMENT: Patient giving good mobility this date, no c/o pain throughout session. Patient completes bed mobility and transfers independently. Patient ambulates in room independently , supervision for ambulation in jordan and on stairs. Patient maintains balance with dynamic g ait challenges. Patient with instability and decreased strength for stair negotiation, impro mile with cues for step to sequencing for improved safety. Patient mobilizing near baseline, anticipate will meet PT goals in 1-2 visits. This patient has good rehabilitation potential to achieve stated goals (see Care Plan for g oals) and requires continued rehabilitation services, given the patient's treatment is at a level of complexity or sophistication requiring the skills of a therapist. Problem: PT Goals- Adult Goal: Functional Mobility Goal Description 1. Donell will be indep with supine to sit from a flat bed, no use of bed rails.-MET 0 2. Donell will be indep sit to stand -MET 10/24/2019 3. Donell will ambulate 200 ft indep 4. Donell will safely ascend/descend 5 steps stand by assist with one rail 5. Donell will be independent with home exercise program Outcome: Gradual progress toward goal Plan: ACTIVITY PLAN: *Nursing to re-assess per shift as needed.* - Lights on and curtains open during day hours. - Up to chair for meals or 3x/day independent. - Routine short distance ambulation in hallway 3x/day with 1 person assist. DISCHARGE: RECOMMENDATIONS: Home with assist PRN;Continued PT at next level of care Sonia Ness PT Should this patient discharge from the hospital prior to the next physical therapy treatmen t, this note shall serve as the discharge summary. 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 SAFETY Patient/Family Target: Donell will remain free from falls/injuries Progress to Target: No Change As evidenced by: Ambulating safely/slowly and independently. COMFORT/ANXIETY/BEHAVIOR Patient/Family Target: Donell will report <4/10 pain Progress to Target: Improving As evidenced by: Donell denied pain throughout night of 10/23. RESTORATIVE MEASURES/SELF-MANAGEMENT Patient/Family Target: Donell will increase mobility. Progress to Target: No Change As evidenced by: Donell rested overnight though is reported to spend most of his day in bed. NURSING ASSESSMENT & RECOMMENDATIONS FORWARD Nursing Assessment of Patient Stability Risk: Moderately stable Recommendations Forward: -Encourage activity as tolerated, and provide assistance as necess david. -Promote nutrition-poor intake. Needs multiple reminders to order food and takes a long angela e eating. Likes Nepro supplements. -Monitor CBGs, multiple insulin orders. -Psych consult performed on 10/13, pt exhibiting depression and had a stressful year. Barriers to discharge: Tentative discharge home on Saturday. 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 SAFETY Patient/Family Target: Donell will remain free from falls/injuries Progress to Target: No Change As evidenced by: Ambulating safely/slowly independently. COMFORT/ANXIETY/BEHAVIOR Patient/Family Target: Donell will report <4/10 pain Progress to Target: No Change As evidenced by: PRN zofran given overnight. No emesis. No c/o nausea during the day. RESTORATIVE MEASURES/SELF-MANAGEMENT Patient/Family Target: Donell will increase mobility Progress to Target: No Change As evidenced by: Donell spends most of his day in bed, declines any efforts to ambulate outside the room. NURSING ASSESSMENT & RECOMMENDATIONS FORWARD Nursing Assessment of Patient Stability Risk: Moderately stable Recommendations Forward: -Encourage activity as tolerated, and provide assistance as necess david. -Promote nutrition- poor intake. Needs multiple reminders to order food and takes a long ti me eating. Likes Nepro supplements. -Monitor CBGs, multiple insulin orders. -Psych consult performed on 10/13, pt exhibiting depression and had a stressful year. Barriers to discharge: Tentative discharge home on Saturday. lan of Care - Dewayne Verduzco RD - 10/23/2019 12:38 PM PSTFormatting of this note might be different from the origin al. Problem: Nutrition Interventions Intervention: Food and nutrient distribution type or amount Patient continues to eat well. He is now ordering most meals himself without prompting. Nixon eduardo usually eats a good breakfast but often picks at his later trays, eating them very slowly. He has been drinking most Nepro shakes but feels he can decrease them to 2 per day. He cont inues on a 2 gm K restriction serum K 4.6-5.0 this week. Expect he nutritional status is imp roving with good PO intake. Pt meets the following criteriasuggesting:Severe protein-calorie malnutrition Rate of weight loss:5 % in 1 mo(18.7% since 09/15) Energy intake:<50% energy intake compared to energy requirementfor > 7 days Depletion of fat stores:moderate Depletion of muscle mass:moderate Rec: - Continue Regular 2 gm K diet - CBG monitoring, insulin adjustment (add Diabetic diet restriction if needed as PO intak e increases) - Monitor renal labs, add phos restriction or phos binder if phos remains >5.0. - Nepro supplements with meals - Encourage adequate fluid intake, >2 L daily - Monitor lytes, replete as needed - Daily ambulation - Bowel care prn Nutrition Dx: Severe protein-calorie malnutrition in the context of acute illness resulting in decreased PO intake as evidenced by wt loss, muscle and fat loss. Following, Fadia Verduzco, MS, RD, LD Pager #[phone] Admitting Dx: Doug Duran is a 54 y.o. 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 His last run ofHD on 09/01. The dialysis catheter was removed on 09/15. Diet:Regular, 2 gm KPO Intake:90-100% of mealsF luid intake: 1417 ml (10/22) Oral Supplements: Nepro with meals Pertinent Meds:lasix,lispro/NPH insulin, MVI, prilosec, prednisone, tacrolimus GI:BM x 1 (10/22) Chemistries: Last 72 Hours (or 3 results) - Refreshable Recent Labs 10/21/19 0940 10/22/19 0544 10/22/19 2348 10/23/19 0726 10/23/19 1511 NA 141 -- 142 -- -- -- -- K 4.6 -- 4.8 -- -- -- -- CL 108 -- 108 -- -- -- -- BICARB 29 -- 30 -- -- -- -- BUN 47* -- 46* -- -- -- -- EGFRAFRICAN 44* -- 39* -- -- -- -- CR 1.95* -- 2.13* -- -- -- -- GLU 187* < > 124* < > 223* 130* 158* CA 9.7 -- 9.3 -- -- -- -- MG 1.6 -- 1.7 -- -- -- -- PO4 4.2 -- 4.8* -- -- -- -- < > = values in this interval not displayed. Lab Results Component Value Date A1C 8.1 (H) 07/17/2019 CBG Result Av.5 Min: 130 Max: 223 Ht:71" Admit wt: 78.9kg BMI: 24.3kg/m2 IBW: 75.4kg Current Wt: 80.6 kg (standing, 10/20) Wt hx:105.6 kg (08/24), 97.1 kg (09/15), Estimated Nutrition Needs:1970-2370kcals (25-30 kcal/kg), 95-118gm protein (1.2-1.5 g m/kg) Nutrition Focused Physical Exam: [id number]/24/19. Subcutaneous Fat Orbital/Buccal Region:Moderate Triceps Area:Moderate Midaxillary Line:Unable to assess Muscle (Upper Body) Temporalis:Moderate Clavicle Region (pectoralis major, deltoid, trapezius): Mild Clavicle and Acromion Region (deltoid):Moderate Scapular Region (trapezius, latissimus dorsi):Unable to assess Dorsal Hand (interosseous):WDL Muscle (Lower Body) Patellar Region (quadriceps):Mild Anterior Thigh Region (quadriceps):Mild Posterior Calf Region (gastrocnemius):Mild Other findings:Tongue appeared normal Summary of findings:moderatefat depletion; moderatemuscle depletion andjanay - Evaristo Thayer RN - 10/23/2019 6:21 AM PSTNursing Handoff Patient Daily Goal: rest (10/21/19 1600) [facility] IP NURSE HANDOFF: [facility] hospital course events: Admitted 10/12 - 54YOM 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 SAFETY Patient/Family Target: Donell will remain free from falls/injuries Progress to Target: No Change As evidenced by: Ambulating safely/slowly independently. COMFORT/ANXIETY/BEHAVIOR Patient/Family Target: Donell will report <4/10 pain Progress to Target: No Change As evidenced by: PRN zofran given overnight. No emesis. RESTORATIVE MEASURES/SELF-MANAGEMENT Patient/Family Target: Donell will participate in his care and discharge plan Donell will increase mobility Progress to Target: No Change As evidenced by: Donell is withdrawn and seems hesitant to make a decision regarding living situation after S NF. Possibilities include living with mom, sister or with one of his children. SW following for additional support. Donell will shower, get up to chair, walk in halls with much encouragem ent, but not proactive. NURSING ASSESSMENT & RECOMMENDATIONS FORWARD Nursing Assessment of Patient Stability Risk: Moderately stable Recommendations Forward: -Encourage activity as tolerated, and provide assistance as necess david. -Promote nutrition- poor intake. Needs multiple reminders to order food and takes a long ti me eating. Like to drink nepro supplements -Monitor CBGs, multiple insulin orders. -Psych consult performed on 10/13, pt exhibiting depression and had a stressful year. Barriers to discharge: Placement Glucose control andoff - Evaristo Thayer RN - 10/22/2019 6:44 AM PSTNursing Handoff Patient Daily Goal: rest (10/21/19 1600) [facility] IP NURSE HANDOFF: [facility] hospital course events: Admitted 10/12 - 54YOM h/o ESLD 2/ EtOH s/p OLTx 08/16 with a course c/b SVT now on amio/metop and HRS/KAR previously on HD now wit h chronic insufficiency but off HD, re-admitted for failure to thrive, depression and hyperk alemia. SAFETY Patient/Family Target: Donell will remain free from falls/injuries Progress to Target: No Change As evidenced by: Ambulating safely/slowly independently. TELE was ordered 10-21-19 for tachycardia, which was improved overnight, HR 80s-90s. COMFORT/ANXIETY/BEHAVIOR Patient/Family Target: Donell will report <4/10 pain Progress to Target: No Change As evidenced by: Reported nausea/gas pain overnight, loose stools. PRN zofran ordered and given with tay able result, no further nausea. RESTORATIVE MEASURES/SELF-MANAGEMENT Patient/Family Target: Donell will participate in his care and discharge plan Donell will increase mobility Progress to Target: No Change As evidenced by: Donell is withdrawn and seems hesitant to make a decision regarding living situation after S NF. Possibilities include living with mom, sister or with one of his children. ROYER following for additional support. Donell will shower, get up to chair, walk in halls with much encouragem ent, but not proactive. NURSING ASSESSMENT & RECOMMENDATIONS FORWARD Nursing Assessment of Patient Stability Risk: Moderately stable Recommendations Forward: -Encourage activity as tolerated, and provide assistance as necess david. -Promote nutrition- poor intake. Needs multiple reminders to order food and takes a long ti me eating. He ordered a dinner tray but took only 1 bite of the dessert. -Monitor CBGs, multiple insulin orders. -Psych consult performed on 10/13, pt exhibiting depression and had a stressful year. Barriers to discharge: Placement Glucose control andoff - Adamaris Rodriguez RN - 10/21/2019 3:04 PM PSTNursing Handoff Patient Daily Goal: get some rest (10/16/19 0815) [facility] IP NURSE HANDOFF: T[facility]z hospital course events: Admitted 10/12 - 54YOM h/o ESLD / EtOH s/p OLTx 08/16 with a course c/b SVT now on amio/metop and HRS/KAR previously on HD now wit h chronic insufficiency but off HD, re-admitted for failure to thrive, depression and hyperk alemia. SAFETY Patient/Family Target: Donell will remain free from falls/injuries Progress to Target: No Change As evidenced by: Ambulating safely/slowly independently. TELE was ordered today for taccycardia. COMFORT/ANXIETY/BEHAVIOR Patient/Family Target: Donell will report <4/10 pain Progress to Target: No Change As evidenced by: Denies pain/discomfort, except this afternoon complained of some gas pain, monitor. Seemed more tired this afternoon. RESTORATIVE MEASURES/SELF-MANAGEMENT Patient/Family Target: Donell will participate in his care and discharge plan Donell will increase mobility Progress to Target: No Change As evidenced by: Donell is withdrawn and seems hesitant to make a decision regarding living situation after S NF. Possibilities include living with mom, sister or with one of his children. ROYER following for additional support. Donell will shower, get up to chair, walk in halls with much encouragem ent, but not proactive. NURSING ASSESSMENT & RECOMMENDATIONS FORWARD Nursing Assessment of Patient Stability Risk: Moderately stable Recommendations Forward: -Encourage activity as tolerated, and provide assistance as necess david. -Promote nutrition- poor intake. Needs multiple reminders to order food and takes a long ti me eating, has declined lunch so far today and was sleeping soundly. -Monitor CBGs, multiple insulin orders. -Psych consult performed on 10/13, pt exhibiting depression and had a stressful year. Barriers to discharge: Placement Glucose control andoff - Tamara Thayer RN - 10/21/2019 7:05 AM PSTNursing Handoff Patient Daily Goal: get some rest (10/16/19 0815) [facility] IP NURSE HANDOFF: [facility] hospital course events: Admitted 10/12 - 54YOM h/o ESLD / EtOH s/p OLTx 08/16 with a course c/b SVT now on amio/metop and HRS/KAR previously on HD now wit h chronic insufficiency but off HD, re-admitted for failure to thrive, depression and hyperk alemia. SAFETY Patient/Family Target: Donell will remain free from falls/injuries Progress to Target: No Change As evidenced by: Ambulating safely/slowly independently. COMFORT/ANXIETY/BEHAVIOR Patient/Family Target: Donell will report <4/10 pain Progress to Target: No Change As evidenced by: Denies pain/discomfort. RESTORATIVE MEASURES/SELF-MANAGEMENT Patient/Family Target: Donell will participate in his care and discharge plan Donell will increase mobility Progress to Target: No Change As evidenced by: Donell is withdrawn and seems hesitant to make a decision regarding living situation after S NF. Possibilities include living with mom, sister or with one of his children. SW following for additional support. Donell will shower, get up to chair, walk in halls with much encouragem ent, but not proactive. He declined assistance with walking over the weekend and says he wal ks on his own, although not observed. NURSING ASSESSMENT & RECOMMENDATIONS FORWARD Nursing Assessment of Patient Stability Risk: Moderately stable Recommendations Forward: -Encourage activity as tolerated, and provide assistance as necess david. -Promote nutrition- poor intake. Needs multiple reminders to order food and takes a long ti me eating. -Monitor CBGs, multiple insulin orders. -Psych consult performed on 10/13, pt exhibiting depression and had a stressful year. Barriers to discharge: Placement Glucose control lan of Care - Dax, Dewayne bella, RD - 10/20/2019 4:41 PM PSTFormatting of this note might be different from the origin al. Problem: Nutrition Interventions Intervention: Food and nutrient distribution type or amount Patient reports good appetite. He ate 100% of breakfast of 2 eggs, 2 slices mcgowan, a uzbek , cranberry juice, almond milk and a Nepro shake. Patient was awaiting lunch when seen. He states he would like to continue to receive Nepro shakes with meals (wants to discontinue c hoc syrup which he was adding to them for now). BUN increasing with increased protein intake . Encouraged good fluid intake. K 5.0 today, continues to need 2 gm K restriction. Expect nutritional status is improving with good PO intake. Pt meets the following criteriasuggesting:Severe protein-calorie malnutrition Rate of weight loss:5 % in 1 mo(18.7% since 09/15) Energy intake:<50% energy intake compared to energy requirementfor > 7 days Depletion of fat stores:moderate Depletion of muscle mass:moderate Rec: - Continue Regular 2 gm K diet - CBG monitoring, insulin adjustment (add Diabetic diet restriction if needed as PO intak e increases) - Monitor renal labs, add phos restriction or phos binder if phos remains >5.0. - Nepro supplements with meals - Encourage adequate fluid intake, >2 L daily - Monitor lytes, replete as needed - Daily ambulation - Bowel care prn Nutrition Dx: Severe protein-calorie malnutrition in the context of acute illness resulting in decreased PO intake as evidenced by wt loss, muscle and fat loss. Following, Fadia Verduzco, MS, RD, LD Admitting Dx: Doug Duran is a 54 y.o. 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 His last run ofHD on 09/01. The dialysis catheter was removed on 09/15. Diet:Regular, 2 gm KPO Intake: 90-100% of mealsFl uid intake: 1007 ml (10/19) Oral Supplements: Nepro with meals Pertinent Meds: lasix,lispro/NPH insulin, MVI, prilosec, prednisone, tacrolimus GI:BM x 2 (10/18) I/O:net + 7.3 L since admit Chemistries: Last 72 Hours (or 3 results) - Refreshable Recent Labs 10/18/19 0517 10/19/19 0643 10/20/19 0602 10/20/19 0801 10/20/19 1339 NA 138 -- 135* -- 141 -- -- K 4.8 -- 4.9 -- 5.0 -- -- CL 104 -- 104 -- 107 -- -- BICARB 29 -- 26 -- 27 -- -- BUN 46* -- 54* -- 54* -- -- EGFRAFRICAN 36* -- 34* -- 36* -- -- CR 2.28* -- 2.45* -- 2.29* -- -- GLU 153* < > 201* < > 116* 122* 164* CA 9.8 -- 9.3 -- 9.6 -- -- MG 2.1 -- 2.0 -- 1.8 -- -- PO4 5.0* -- 5.1* -- 5.4* -- -- < > = values in this interval not displayed. Lab Results Component Value Date A1C 8.1 (H) 07/17/2019 CBG Result Av.5 Min: 122 Max: 189 Ht:71" Admit wt: 78.9kg BMI: 24.3kg/m2 IBW: 75.4kg Current Wt: 80.6 kg (standing, 10/20) Wt hx:105.6 kg (08/24), 97.1 kg (09/15), Estimated Nutrition Needs:1970-2370kcals (25-30 kcal/kg), 95-118gm protein (1.2-1.5 g m/kg) Nutrition Focused Physical Exam: [id number]/24/19. Subcutaneous Fat Orbital/Buccal Region:Moderate Triceps Area:Moderate Midaxillary Line:Unable to assess Muscle (Upper Body) Temporalis:Moderate Clavicle Region (pectoralis major, deltoid, trapezius): Mild Clavicle and Acromion Region (deltoid):Moderate Scapular Region (trapezius, latissimus dorsi):Unable to assess Dorsal Hand (interosseous):WDL Muscle (Lower Body) Patellar Region (quadriceps):Mild Anterior Thigh Region (quadriceps):Mild Posterior Calf Region (gastrocnemius):Mild Other findings:Tongue appeared normal Summary of findings:moderatefat depletion; moderatemuscle depletion andoff - Fabienne Rodriguez RN - 10/20/2019 1:36 PM PSTNursing Handoff Patient Daily Goal: get some rest (10/16/19 0815) [facility] IP NURSE HANDOFF: [facility] hospital course events: Admitted 10/12 - 54YOM h/o ESLD 11/22 EtOH s/p OLTx 08/16 with a course c/b SVT now on amio/metop and HRS/KAR previously on HD now wit h chronic insufficiency but off HD, re-admitted for failure to thrive, depression and hyperk alemia. As evidenced by: Seems to ambulate safely independently, but bears watching. Cloudy mentation at times but oriented. As evidenced by: No complaints of pain or other discomfort today, appears to remain depressed. As evidenced by: PIV x1, voiding in urinal or toilet. RESTORATIVE MEASURES/SELF-MANAGEMENT Patient/Family Target: Donell will participate in his care and discharge plan Donell will increase mobility Progress to Target: No Change As evidenced by: Donell is withdrawn and seems hesitant to make a decision regarding living situation after S NF. Possibilities include living with mom, sister or with one of his children. SW following for additional support. Donell will shower, get up to chair, walk in halls with much encouragem ent, but not proactive. He declined assistance with walking over the weekend and says he wal ks on his own, although not observed. NURSING ASSESSMENT & RECOMMENDATIONS FORWARD Nursing Assessment of Patient Stability Risk: Moderately stable Recommendations Forward: -Encourage activity as tolerated, and provide assistance as necess david. -Promote nutrition- poor intake. Needs multiple reminders to order food and takes a long ti me eating. -Monitor CBGs, multiple insulin orders. -Psych consult performed on 10/13, pt exhibiting depression and had a stressful year. Ambulated tonight with me ( Scot DONOHUE) outside through the ED and around 14A. Talkative when on subjects not about his health and discharge plan. He clearly needs placement that will be assisting him throughout the day. He would not be safe in an independent environment. Patie nt shows unsteady gait at times. Cloudy mentation clearly present. Unstable lytes or a irreg ular heart rate that diminishes adequate perfusion would be very dangerous for him alone and likely will occur again in the weeks to come. Successful depression treatment will be a tamez to his transition to caring for himself again in 2019) Barriers to discharge: Placement andoff - Saige, Yvan verdin RN - 10/20/2019 2:49 AM PSTNursing Handoff Patient Daily Goal: get some rest (10/16/19 0815) [facility] IP NURSE HANDOFF: [facility] hospital course events: Admitted 10/12 - 54YOM h/o ESLD / EtOH s/p OLTx 08/16 with a course c/b SVT now on amio/metop and HRS/KAR previously on HD now wit h chronic insufficiency but off HD, re-admitted for failure to thrive, depression and hyperk alemia. RESTORATIVE MEASURES/SELF-MANAGEMENT Patient/Family Target: Donell will participate in his care and discharge plan Donell will increase mobility Progress to Target: No Change As evidenced by: Donell is withdrawn and seems hesitant to make a decision regarding living situation after S NF. Possibilities include living with mom or with one of his children. SW following for karin tional support. Donell will shower, get up to chair, walk in halls with much encouragement, but not proactive. He declined assistance with walking over the weekend and says he walks on hi s own, although not observed. NURSING ASSESSMENT & RECOMMENDATIONS FORWARD Nursing Assessment of Patient Stability Risk: Moderately stable Recommendations Forward: -Encourage activity as tolerated, and provide assistance as necess david. -Promote nutrition- poor intake. Needs multiple reminders to order food and takes a long ti me eating. -Monitor CBGs, multiple insulin orders. -Psych consult performed on 10/13, pt exhibiting depression and had a stressful year. Ambulated tonight with me ( Scot DONOHUE) outside through the ED and around 14A. Talkative when on subjects not about his health and discharge plan. He clearly needs placement that will be assisting him throughout the day. He would not be safe in an independent environment. Patie nt shows unsteady gait at times. Cloudy mentation clearly present. Unstable lytes or a irreg ular heart rate that diminishes adequate perfusion would be very dangerous for him alone and likely will occur again in the weeks to come. Successful depression treatment will be a tamez to his transition to caring for himself again in 2020) Barriers to discharge: Placement Hodan - Shirley Alexandre RN - 10/19/2019 7:23 PM PSTNursing Handoff Patient Daily Goal: get some rest (10/16/19 0815) [facility] IP NURSE HANDOFF: [facility] hospital course events: Admitted 10/12 - 54YOM h/o ESLD 2/ EtOH s/p OLTx 08/16 with a course c/b SVT now on amio/metop and HRS/KAR previously on HD now wit h chronic insufficiency but off HD, re-admitted for failure to thrive, depression and hyperk alemia. RESTORATIVE MEASURES/SELF-MANAGEMENT Patient/Family Target: Donell will participate in his care and discharge plan Donell will increase mobility Progress to Target: No Change As evidenced by: Donell is withdrawn and seems hesitant to make a decision regarding living situation after S NF. Possibilities include living with mom or with one of his children. SW following for karin tional support. Donell will shower, get up to chair, walk in halls with much encouragement, but not proactive. He declined assistance with walking over the weekend and says he walks on hi s own, although not observed. NURSING ASSESSMENT & RECOMMENDATIONS FORWARD Nursing Assessment of Patient Stability Risk: Moderately stable Recommendations Forward: -Encourage activity as tolerated, and provide assistance as necess david. -Promote nutrition- poor intake. Needs multiple reminders to order food and takes a long ti me eating. -Monitor CBGs, multiple insulin orders. -Psych consult performed on 10/13, pt exhibiting depression and had a stressful year. Barriers to discharge: Placement rian - Nicki Toro RN - 10/19/2019 5:59 AM PSTNursing Handoff Patient Daily Goal: get some rest (10/16/19814) [facility] IP NURSE HANDOFF: [facility] hospital course events: Admitted 10/12 - 54YOM 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 RESTORATIVE MEASURES/SELF-MANAGEMENT Patient/Family Target: Donell will participate in his care and discharge plan Donell will increase mobility Progress to Target: No Change As evidenced by: Donell is withdrawn and seems hesitant to make a decision regarding living situation after S NF. Possibilities include living with mom or with one of his children. SW following for karin tional support. Donell will shower, get up to chair, walk in halls with much encouragement, but not proactive. He declined assistance with walking over the weekend and says he walks on hi s own, although not observed. NURSING ASSESSMENT & RECOMMENDATIONS FORWARD Nursing Assessment of Patient Stability Risk: Moderately stable Recommendations Forward: -Encourage activity as tolerated, and provide assistance as necess david. -Promote nutrition- poor intake. Needs multiple reminders to order food and takes a long ti me eating. -Monitor CBGs, multiple insulin orders. -Psych consult performed on 10/13, pt exhibiting depression and had a stressful year. Barriers to discharge: Placement andoff - Shirley Alexandre RN - 10/18/2019 6:29 PM PSTNursing Handoff Patient Daily Goal: get some rest (10/16/19814) [facility] IP NURSE HANDOFF: [facility] hospital course events: Admitted 10/12 - 54YOM 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 RESTORATIVE MEASURES/SELF-MANAGEMENT Patient/Family Target: Donell will participate in his care and discharge plan Donell will increase mobility Progress to Target: No Change As evidenced by: Donell is withdrawn and seems hesitant to make a decision regarding living situation after S NF. Possibilities include living with mom or with one of his children. ROYER following for karin tional support. Donell will shower, get up to chair, walk in halls with much encouragement, but not proactive. He declined assistance with walking over the weekend and says he walks on hi s own, although not observed. NURSING ASSESSMENT & RECOMMENDATIONS FORWARD Nursing Assessment of Patient Stability Risk: Moderately stable Recommendations Forward: -Encourage activity as tolerated, and provide assistance as necess david. -Promote nutrition- poor intake. Needs multiple reminders to order food and takes a long ti me eating. -Monitor CBGs, multiple insulin orders. -Psych consult performed on 10/13, pt exhibiting depression and had a stressful year. Barriers to discharge: Placement andoff - Nicki Toro RN - 10/18/2019 6:36 AM PSTNursing Handoff Patient Daily Goal: get some rest (10/16/19 0815) [facility] IP NURSE HANDOFF: [facility] hospital course events: Admitted 10/12 - 54YOM h/o ESLD 11/22 EtOH s/p OLTx 08/16 with a course c/b SVT now on amio/metop and HRS/KAR previously on HD now wit h chronic insufficiency but off HD, re-admitted for failure to thrive, depression and hyperk alemia. RESTORATIVE MEASURES/SELF-MANAGEMENT Patient/Family Target: Donell will participate in his care and discharge plan Donell will increase mobility Progress to Target: No Change As evidenced by: Donell is withdrawn and seems hesitant to make a decision regarding living situation after S NF. Possibilities include living with mom or with one of his children. ROYER following for karin tional support. Donell will shower, get up to chair, walk in halls with much encouragement on s ome days, but not proactive. For example, today he declined help with ambulation in the jordan despite multiple attempts. He does well moving around in the room on his own and, per SOLAR SALES ENERGY ADVISORAutumn cruz, was previously ambulating in the jordan without a walker. NURSING ASSESSMENT & RECOMMENDATIONS FORWARD Nursing Assessment of Patient Stability Risk: Moderately stable Recommendations Forward: -Encourage activity as tolerated, and provide assistance as necess david. -Promote nutrition- poor intake. Needed multiple reminders today to order food and ended up skipping lunch. -Monitor CBGs, multiple insulin orders. -Psych consult performed on 10/13, pt exhibiting depression and had a stressful year. Barriers to discharge: Placement andoff - Shirley Alexandre RN - 10/17/2019 5:28 PM PSTNursing Handoff Patient Daily Goal: get some rest (10/16/19814) [facility] IP NURSE HANDOFF: [facility] hospital course events: Admitted 10/12 - 54YOM 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 RESTORATIVE MEASURES/SELF-MANAGEMENT Patient/Family Target: Donell will participate in his care and discharge plan Donell will increase mobility Progress to Target: No Change As evidenced by: Donell is withdrawn and seems hesitant to make a decision regarding living situation after S NF. Possibilities include living with mom or with one of his children. SW following for karin tional support. Donell will shower, get up to chair, walk in halls with much encouragement on s ome days, but not proactive. For example, today he declined help with ambulation in the jordan despite multiple attempts. He does well moving around in the room on his own and, per [employer] SAL[employer] ENERGY ADVISOR farzana cruz, was previously ambulating in the jordan without a walker. NURSING ASSESSMENT & RECOMMENDATIONS FORWARD Nursing Assessment of Patient Stability Risk: Moderately stable Recommendations Forward: -Encourage activity as tolerated, and provide assistance as necess david. -Promote nutrition- poor intake. Needed multiple reminders today to order food and ended up skipping lunch. -Monitor CBGs, multiple insulin orders. -Psych consult performed on 10/13, pt exhibiting depression and had a stressful year. Barriers to discharge: Placement andoff - Jersey Umana RN - 10/17/2019 6:39 AM PSTNursing Handoff Patient Daily Goal: get some rest (10/16/19 08) [facility] IP NURSE HANDOFF: [facility] hospital course events: Admitted 10/12 - 54YOM 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 RESTORATIVE MEASURES/SELF-MANAGEMENT Patient/Family Target: Donell will participate in his care and discharge plan Donell will increase mobility Progress to Target: No Change As evidenced by: Donell is withdrawn, and seems hesitant to make a decision re where he will go after SNF. Juan becerril is exploring options on where to live after discharge. With mom, or with one of his ch ildren? PT is recommending SNF. SW following for additional support. See SW note dated 10/16 . Donell will shower, get up to chair, walk in halls, with much encouragement but not proactive . NURSING ASSESSMENT & RECOMMENDATIONS FORWARD Nursing Assessment of Patient Stability Risk: Moderately stable Recommendations Forward: -Encourage activity as tolerated, and provide assistance as necess david. -Promote nutrition- poor intake, but julia count d/c'd and PO intake improving -Monitor CBGs, multiple insulin orders -Psych consult performed on 10/13, pt exhibiting depression and has had many hard social ev ents this year Barriers to discharge: Placement andoff - Franchesca Hood RN - 10/16/2019 11:07 AM PSTNursing Handoff Patient Daily Goal: get some rest (10/16/19 0815) [facility] IP NURSE HANDOFF: [facility] hospital course events: Admitted 10/12 - 54YOM 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 RESTORATIVE MEASURES/SELF-MANAGEMENT Patient/Family Target: Donell will participate in his care and discharge plan Donell will increase mobility Progress to Target: No Change As evidenced by: Donell is withdrawn, and seems hesitant to make a decision re where he will go after SNF. Juan becerril is exploring options on where to live after discharge. With mom, or with one of his ch ildren? PT is recommending SNF. SW following for additional support. See SW note dated 10/16 . Donell will shower, get up to chair, walk in halls, with much encouragement but not proactive . Has not been voiding in urinal consistently today, but should be strict I/O's-reinforced. Continue to encourage/reinforce. NURSING ASSESSMENT & RECOMMENDATIONS FORWARD Nursing Assessment of Patient Stability Risk: Moderately stable Recommendations Forward: -Encourage activity as tolerated, and provide assistance as necess david. -Promote nutrition- poor intake, but julia count d/c'd and PO intake improving -Monitor electrolytes- high K, PO lasix d/c'd this evening -Monitor CBGs, multiple insulin orders -Psych consult performed on 10/13, pt exhibiting depression and has had many hard social ev ents this year Barriers to discharge: Placement lan of Care - Charlene Saldaña LCSW - 10/16/2019 10:53 AM PSTSocial Work Note Newspaper Writer covering for regular unit Newspaper Writer. Please see SW note from Amaris reeder 08/24/19 re: housing. "Post-Hospital Support Plan: Pt will recover at a house he and his family has rented in [place]. They have the house re nted through November. His mother Priyanka will provide support initially and his sister Doreen will join next week. They then will alternate staying with pt." Newspaper Writer will route this note to ensure communication is flowing regarding discharge c oncerns related to housing. WINIFRED Ruggiero, JACOBY Newspaper Writer (Float) Pager #[phone] lan of Care - Shirley Washburn, PT - 10/16/2019 10:36 AM PSTFormatting of this note might be different from the o riginal. Problem: PT Goals- Adult Goal: Functional Mobility Goal Description 1. Donell will be indep with supine to sit from a flat bed, no use of bed rails. 2. Donell will be indep sit to stand 3. Donell will ambulate 200 ft indep 4. Donell will safely ascend/descend 5 steps stand by assist with one rail 5. Donell will be independent with home exercise program Outcome: Gradual progress toward goal Physical Therapy 10/16/2019 10:36 AM Admit Date : 10/12/2019 Hospital Day: 4 Age : 54 y.o. Time in: 1005 Time out: 1030 Patient was seen for a total of 25 minutes of direct one on one skilled physical therapy wh ich included 25 minutes of therapeutic activities Brief Hospital Course: 54YOM h/o ESLD / EtOH s/p OLTx 08/16 with a course c/b SVT now on amio/metop and HRS/KAR previously on HD now with chronic insufficiency but off HD, re-admitt ed for failure to thrive, depression and hyperkalemia. Calorie counts ongoing. Prealbumin pe nding. May need tube feeding via [place] if he cannot eat enough. Psychiatry evaluated and will continue mirtazapine. Social work consulted. Will start kayexelate three times weekly. As per MD notes,10/16/19 Past Medical History: Diagnosis Date Cirrhosis (HCC) CKD (chronic kidney disease) Status Update: possible D/C to SNF Relevant Precautions: Fall risk Subjective: Patient agreed to work with PT, "The walker is a pain in the butt.I don't want to use it." Pain: none endorsed, right -calf muscles-sensitive to touch Objective: Patient seen supine in bed,head of bed 45 degree,student assistance present in room, In bed, lower extremity strength training exercises- ankle toe movements,heel slides, hip f lexion, hip abduction, -10 reps each, active range of motion ,bilateral lower extremity Supine to edge of bed - modified independent-bed railing support,min assist to don socks an d shoes, Patient performed bilateral lower extremity -hip flexion,long arc quads and ankle toe movem ents -10 reps each- active range of motion Patient refused to use assistive device, agreed to use gait belt ,wheelchair followup for s afety, Patient ambulated 250 feet with front wheeled walker,on even surface,contact guard assistan ce,gait belt on, reduced gait speed and step length,wide base of support- reciprocal gait pa ttern, left hip increased ER, no buckling of knee,no overt loss of balance, no sitting rest breaks,needs cues for safety, edge of bed to supine in bed-modified independent Patient education on importance of lower extremity strength training exercises- could recal l a few exercises,importance of ambulation, call RN for out of bed mobility Patient vitals stable pre and post therapy session,asymptomatic Patient was left in bed,call pearson within reach and RN was notified [facility] BASIC MOBILITY Difficulty turning over in bed 4 - None - Modified Independent/Independent Difficulty sitting/standing from chair w/ arms 3 - A Little - Minimal/Contact Guard Assist/ Supervision Difficulty moving from supine to sitting on edge of bed 4 - None - Modified Independent/Ind ependent Help needed moving from /to chair/wheelchair 3 - A Little - Minimal/Contact Guard Assist/S upervision Help needed walking in hospital room 3 - A Little - Minimal/Contact Guard assist/Supervisio n Help needed climbing 3-5 steps w/railing 1 - Unable to do/total assistance - Total/Dependen t Assist (not perfomed today) [facility] Basic Mobility Total Score 18 Assessment: Patient shoewed increased activity tolerance to ambulation in today's session.P atient needs cues for safety, has reduced safety awareness,was Ox4,does better with simple s tep commands.Patient has mild gait deviations,risk for falls. This patient has good rehabilitation potential to achieve stated goals and requires contin ued skilled physical therapy rehabilitation services - gait training ,neuromuscular re-educa tion,therapeutic activities to meet her goals. Interpretation of [facility] Short Form - Basic Mobility: CMS [...] during day hours. - Routine distance ambulation 2x/day with front wheeled walker and 1 person assist. - Up to chair 3 x/day for meals and as needed with front wheeled walker and [address] Discharge Recommendations: 24 hour skilled care DME needed at discharge: defer to facility RN was notified of discharge recommendations. Should this patient discharge from the hospital prior to the next physical therapy treatmen t, this note shall serve as the discharge summary. Shirley Ochoa, PT #[id number] signed by Shirley Ochoa PT at 10/16/2019 10:49 AM PSTPlan of Shirley Tucker, PT - 10/16/2019 10:36 AM PST Problem: PT Goals- Adult Goal: Functional Mobility Goal Description 1. Donell will be indep with supine to sit from a flat bed, no use of bed rails. 2. Donell will be indep sit to stand 3. Donell will ambulate 200 ft indep 4. Donell will safely ascend/descend 5 steps stand by assist with one rail 5. Donell will be independent with home exercise program Outcome: Gradual progress toward goal lan of Meagan Nolan - 10/16/2019 7:44 AM PST Problem: Nutrition Interventions Intervention: Food and nutrient distribution type or amount Note: Nutrition: Caloric Intake Analysis for 10/15/2019 57 Grams PROTEIN, 1,754 Calories. Figures represent foods eaten at 3 meals, and 2 snacks. I ncludes 96 ml of Nepro. Foods recorded as eaten in EPIC. Calorie count complete. Meagan Lim DTR [id number] andoff - Jersey Umana RN - 10/16/2019 5:51 AM PSTNursing Handoff Patient Daily Goal: Sleep off and on (10/15/19 0015) [facility] IP NURSE HANDOFF: [facility] hospital course events: Admitted 10/12 - 54YOM 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 SAFETY Patient/Family Target: Donell will not fall. Progress to Target: No Change As evidenced by: Donell is steady on his feet, has been using the urinal independently. Up in hallway w/ SBA. [employer] Patient/Family Target: Pt mood to be within normal limits this shift. Progress to Target: No Change As evidenced by: Within normal limits. Mumbles when he talks and sometimes need to ask pt to repeat. NURSING ASSESSMENT & RECOMMENDATIONS FORWARD Nursing Assessment of Patient Stability Risk: Moderately stable Recommendations Forward: -Encourage activity as tolerated, and provide assistance as lidia messinay. -Promote nutrition- poor intake. -Monitor electrolytes- high K, on PO lasix -Monitor CBGs, multiple insulin orders -Psych consult performed on 10/13, pt exhibiting depression and has had many hard social ev ents this year Barriers to discharge: Patient is exploring options on where to live after discharge. With mom, or with one of his children? PT is recommending SNF. 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 Pre-operatively he had a prolong admission co mplicated by SVT requiring amiodarone drip, severe malnutrition, KAR/HRS, and spur cell anem ia. His post operative course was complicated by renal dysfunction requiring dialysis, and p ersistent ascites/anasarca. His last run of HD on 09/01. The dialysis catheter was removed o n 09/15. 10/12-Readmitted for labs. SAFETY Patient/Family Target: Donell will not fall. Progress to Target: No Change As evidenced by: Donell was steady on his feet today, has been using the urinal independently. Up in hallway w/ SBA. [employer] Patient/Family Target: Pt mood to be within normal limits this shift. Progress to Target: No Change As evidenced by: Pt appeared to be in a good mood this shift. Mumbles when he talks and sometimes need to ask pt to repeat. NURSING ASSESSMENT & RECOMMENDATIONS FORWARD Nursing Assessment of Patient Stability Risk: Moderately stable Recommendations Forward: -Encourage activity, as tolerated, and provide assistance, as nece jinnyry. -Promote nutrition-patient having poor food intake. -Monitor [id number] today, started on PO lasix -Monitor CBGs, snack insulin coverage was added today -Psych consult performed on 10/13, pt exhibiting depression and has had many hard social ev ents this year Barriers to discharge: Patient is exploring options on where to live after discharge. With mom, or with his one his children? PT is recommending SNF. lan of Care - Fadia Verduzco, RD - 10/15/2019 12:53 PM PST Problem: Nutrition Interventions Intervention: Food and nutrient distribution type or amount Patient observed eating breakfast of scrambled eggs, mcgowan, a muffin with plans to drink a Nepro shake. Calorie count 2 day average: 1690 kcals (86% of est kcal needs) and 65 gm prot ein (68% of est protein needs) but intake yesterday improved from 1171 kcals to 2210 kcals. K remains elevated at 5.1 today, continues to need 2 gm K diet restriction. Pt meets the following criteria suggesting: Severe protein-calorie malnutrition Rate of weight loss: 5 % in 1 mo (18.7% since 09/15) Energy intake: <50% energy intake compared to energy requirement for > 7 days Depletion of fat stores: moderate Depletion of muscle mass: moderate Rec: - Continue Regular 2 gm K diet - CBG monitoring, insulin adjustment (add Diabetic diet restriction if needed as PO intake increases) - Nepro supplements with meals - Continue calorie count x 1 more day - Encourage increased PO intake, especially high protein foods such as eggs, meat and fish , nut butters - Monitor lytes, replete as needed - Daily ambulation - Bowel care prn Nutrition Dx: Severe protein-calorie malnutrition in the context of acute illness resulting in decreased PO intake as evidenced by wt loss, muscle and fat loss. Following, Fadia Verduzco, MS, RD, LD Pager #[phone] Admitting Dx: Doug Duran is a 54 y.o. male male who underwent a liver transplant foralcohol cirrhosison 08/16/2019.Pre-operatively he had a prolong admission complicat ed by SVT requiring amiodarone drip, severe malnutrition, KAR/HRS, and spur cell anemia.Hi s post operative course wascomplicated byrenal dysfunctionrequiring dialysis,andpe rsistent ascites/anasarca. His last run ofHD on 09/01. The dialysis catheter was removed o n 09/15. Diet: Regular, 2 gm K PO Intake: See Calorie count above Fluid intake: 1 964 ml (10/14) Oral Supplements: Nepro with meals Pertinent Meds: lasix, lispro/NPH insulin, MVI, prilosec, prednisone, tacrolimus GI: BM x 1 (10/14) I/O: net + 5.8 L since admit Chemistries: Last 72 Hours (or 3 results) - Refreshable Recent Labs 10/13/19 0513 10/14/19 0451 10/15/19 0516 10/15/19 0615 10/15/19 1039 NA 137 -- 140 -- 140 -- -- K 5.4* -- 5.0 -- 5.1* -- -- CL 104 -- 107 -- 107 -- -- BICARB 27 -- 28 -- 28 -- -- BUN 52* -- 49* -- 46* -- -- EGFRAFRICAN 44* -- 40* -- 41* -- -- CR 1.95* -- 2.12* -- 2.06* -- -- GLU 194* < > 107* < > 196* 205* 104* CA 9.4 -- 9.1 -- 9.2 -- -- MG 1.6 -- 1.5* -- 1.4* -- -- PO4 5.0* -- 4.6 -- 4.6 -- -- < > = values in this interval not displayed. Lab Results Component Value Date A1C 8.1 (H) 07/17/2019 CBG Result Av.4 Min: 104 Max: 205 Ht: 71" Admit wt: 78.9 kg BMI: 24.3 kg/m2 IBW: 75.4 kg Current Wt: 80.9 kg (standing, 10/15) Wt hx: 105.6 kg (08/24), 97.1 kg (09/15), Estimated Nutrition Needs: 6598-0199 kcals (25-30 kcal/kg), 95-118 gm protein (1.2-1.5 gm/k g) Nutrition Focused Physical Exam: completed 10/13/19. Subcutaneous Fat Orbital/Buccal Region: Moderate Triceps Area: Moderate Midaxillary Line: Unable to assess Muscle (Upper Body) Temporalis: Moderate Clavicle Region (pectoralis major, deltoid, trapezius): Mild Clavicle and Acromion Region (deltoid): Moderate Scapular Region (trapezius, latissimus dorsi): Unable to assess Dorsal Hand (interosseous): WDL Muscle (Lower Body) Patellar Region (quadriceps): Mild Anterior Thigh Region (quadriceps): Mild Posterior Calf Region (gastrocnemius): Mild Other findings: Tongue appeared normal Summary of findings: moderate fat depletion; moderate muscle depletion lan of Care - Nicole Garner - 10/15/2019 8:07 AM PST Problem: Nutrition Interventions Intervention: Food and nutrient distribution type or amount Note: Nutrition: Caloric Intake Analysis for 10/14/2019 80 Grams PROTEIN, 2210 Calories. Figures represent foods eaten at 3 meals, and 1 snacks. In cludes 480 ml of Nepro. Foods recorded as eaten in EPIC. Will continue to follow. Nicole banegas, Patient Financial Representative [phone] andoff - Jamila Viveros R N - 10/15/2019 2:00 AM PSTNursing Handoff Patient Daily Goal: Sleep off and on (10/15/19 0015) [facility] IP NURSE HANDOFF: Tamez hospital course events: 54 year old male who underwent a liver t ransplant for alcohol cirrhosis on 08/16/2019. Pre-operatively he had a prolong admission co mplicated by SVT requiring amiodarone drip, severe malnutrition, KAR/HRS, and spur cell anem ia. His post operative course was complicated by renal dysfunction requiring dialysis, and p ersistent ascites/anasarca. His last run of HD on 09/01. The dialysis catheter was removed o n 09/15. 10/12-Readmitted for labs. SAFETY Patient/Family Target: Donell will not fall. Progress to Target: No Change As evidenced by: Donell complains of fatigue and needs assistance to get OOB as he is unsteady on his feet. C ontinue to work with him and encourage activity. Pt did not get out of bed this shift. [employer] Patient/Family Target: Pt mood to be within normal limits this shift. Progress to Target: No Change As evidenced by: Pt appeared to be in a good mood this shift. Mumbles when he talks and sometimes need to ask pt to repeat. NURSING ASSESSMENT & RECOMMENDATIONS FORWARD Nursing Assessment of Patient Stability Risk: Moderately stable Recommendations Forward: -Encourage activity, as tolerated, and provide assistance, as nece ssayesy. -Promote nutrition-patient having poor food intake. -Monitor electrolytes-potassium shifted on 10/12 -Monitor CBGs. -Psych consult performed on 10/13, pt exhibiting depression and has had many hard social ev ents this year Barriers to discharge: Home with mom TBD lan of Care - Nicole Lobo - 10/14/2019 9:00 AM PST Problem: Nutrition Interventions Intervention: Food and nutrient distribution type or amount Note: Nutrition: Caloric Intake Analysis for 10/13/2019 50 Grams PROTEIN, 1171 Calories. Figures represent foods eaten at 3 meals, and 1 snack. Ever ds recorded as eaten in uSamp. Will continue to follow. Nicole Lobo, Patient Financial Representative [phone] andoff - Reina Barahona R N - 10/14/2019 3:14 AM PSTNursing Handoff [place] IP NURSE HANDOFF: Tamez hospital course events: 54 year old male who underwent a liver t ransplant for alcohol cirrhosis on 08/16/2019. Pre-operatively he had a prolong admission co mplicated by SVT requiring amiodarone drip, severe malnutrition, KAR/HRS, and spur cell anem ia. His post operative course was complicated by renal dysfunction requiring dialysis, and p ersistent ascites/anasarca. His last run of HD on 09/01. The dialysis catheter was removed o n 09/15. 10/12-Readmitted for labs. SAFETY Patient/Family Target: Donell will not fall. Progress to Target: No Change As evidenced by: Donell complains of fatigue and needs assistance to get OOB as he is unsteady on his feet. C ontinue to work with him and encourage activity. NURSING ASSESSMENT & RECOMMENDATIONS FORWARD Nursing Assessment of Patient Stability Risk: Moderately stable Recommendations Forward: -Encourage activity, as tolerated, and provide assistance, as nece ssary. -Promote nutrition-patient having poor food intake. -Monitor electrolytes-potassium shifted on 10/12 -Monitor CBGs. -Psych consult performed on 10/13, pt exhibiting depression and has had many hard social ev ents this year Barriers to discharge: Home with mom TBD andoff - Sarina Atkinson, JAYDE - 10/13/2019 6:59 PM PSTNursing Handoff [place] IP NURSE HANDOFF: Tamez hospital course events: 54 year old male who underwent a liver t ransplant for alcohol cirrhosis on 08/16/2019. Pre-operatively he had a prolong admission co mplicated by SVT requiring amiodarone drip, severe malnutrition, KAR/HRS, and spur cell anem ia. His post operative course was complicated by renal dysfunction requiring dialysis, and p ersistent ascites/anasarca. His last run of HD on 09/01. The dialysis catheter was removed o n 09/15. 10/12-Readmitted for labs. SAFETY Patient/Family Target: Donell will not fall. Progress to Target: No Change As evidenced by: Donell complains of fatigue and needs assistance to get OOB. His Mom reports that he hasn't been getting out of bed. He was able to walk with close 1 PA and using the IV pole. He is un steady on his feet. Continue to work with him and encourage activity, he isn't very self mot ivated NURSING ASSESSMENT & RECOMMENDATIONS FORWARD Nursing Assessment of Patient Stability Risk: Moderately stable Recommendations Forward: -Encourage activity, as tolerated, and provide assistance, as nece ssary. -Promote nutrition-patient having poor food intake. -Monitor electrolytes-potassium shifted on 10/12 -Monitor CBGs. -Psych consult performed on 10/13, pt with depression and has had many hard social events t his year Barriers to discharge: Home with mom TBD lan of Care - Javi Lora, PT - 10/13/2019 11:59 AM PST Physical Therapy Evaluation 10/13/2019 11:59 AM Hospital Day: 1 [id number] DOUG DURAN Date of : 1965 Start of care: 10/12/2019 Referring/Attending Practitioner: Rod Hartley* Primary/Referral Diagnosis/ICD-9: E43 Severe protein-calorie malnutrition (HCC) Insurance: Payor: MEDICARE COORDINATOR MEDICAID / Plan: MEDICARE COORDINATOR [place] / Product Type: Medicaid / Service period from: 10/13/2019 to 01/11/2020 Time in: 1130 Time out: 1152 Patient was seen for a total of 22 minutes of direct one on one skilled physical therapy wh ich included 18 minutes of therapeutic activity Patient seen on 4A Brief Hospital Course: 54YOM h/o ESLD / EtOH s/p OLTx 08/16 with a course c/b SVT now on amio/metop and HRS/KAR previously on HD now with chronic insufficiency but off HD, re-admit jeannette for failure to thrive, depression and hyperkalemia. Calorie counts ongoing. Prealbumin p ending. May need tube feeding via [place] if he cannot eat enough. Psychiatry evaluated and will continue mirtazapine. Social work consulted. Will start kayexelate three times weekly (per Dr. Leonard, 10/13) Relevant Precautions: Fall risk Indication for PT Evaluation: Instruction for safety with mobility following surgery or inj ury Past Medical History: Diagnosis Date Cirrhosis (HCC) CKD (chronic kidney disease) Past Surgical History: Procedure Laterality Date LEG SURGERY Subjective: Donell presents awake seated edge of bed, willing to work with PT. Living Environment: Lives With: alone (mother is staying with ) Living Arrangements: mobile home Number of Stairs To Enter Home: 5 Number of Stairs Within Home: 5 Prior level of function: Bed Mobility/Transfers: independent Ambulation Skills: independent Transfer Skills: independent Stair Skills: Independent ADL Skills: independent Equipment available at home: front wheeled walker History of Falls: yes (1 in the last month - mechanical) Patient / Family Goal: return home Language: djiboutian Individuals present for session other than therapist and pt: pt's mother Pain: no pain reported Vital signs: stable per observation. Cognitive Screen Level of alertness: awake and alert Orientation: x4 Quality of responses: difficult to understand at times, speaks quietly. Appropriate respon ses to questions Command following: follows simple commands Judgment / safety awareness: fair Physical Assessment ROM: within functional limits Strength: within functional limits Edema: not assessed Neurological Function Sensation: not assessed Muscle Tone: intact Proprioception: intact Gross Motor: intact Fine Motor: intact Balance: Sitting static: good, independent Sitting dynamic: good, independent Standing static: good-fair without assistive device, stand by assist Standing dynamic: fair without assistive device, stand by assist Functional Balance Grades: Normal Static: Patient able to maintain steady [...] rehabilitation: assessment and treatme nt (5th ed.). [place]: Oohly. p.[phone] Mobility & Transfers: Supine to sit: independent Sit to supine: independent Sit to stand: independent without assistive device Stand to sit: independent Stand pivot transfer: Gait: able to ambulate without assistive device at contact guard assist; progressed to orlin d by assist. Demonstrates wide base of support with reciprocal gait pattern however, inconsi stent step ally and intermittent path deviation. Mildly unsteady at times however, no ove rt loss of balance noted. Level of Assistance Definition Safe Patient Mobility [...] clinician performs 75-100% of activity Depend ent Outcome Measure(s): [facility] BASIC MOBILITY Difficulty turning over in bed 4 - None - Modified Independent/Independent Difficulty sitting/standing from chair w/ arms 3 - A Little - Minimal/Contact Guard Assist/ Supervision Difficulty moving from supine to sitting on edge of bed 4 - None - Modified Independent/Ind ependent Help needed moving from /to chair/wheelchair 3 - A Little - Minimal/Contact Guard Assist/S upervision Help needed walking in hospital room 3 - A Little - Minimal/Contact Guard assist/Supervisio n Help needed climbing 3-5 steps w/railing 3 - A Little - Minimal/Contact Guard Assist/Superv ision [facility] Basic Mobility Total Score 20 Interpretation of [facility] Short Form - Basic Mobility: CMS [...] m obility and may be an underestimate Treatment and education provided this date: - pt awake seated edge of bed, agreeable to PT - sit to stand without assistive device, supervised - ambulated without assistive device at contact guard assist; mildly unsteady at times, no loss of balance noted - stand to sit supervised-independent Education provided: - safety with mobility - pacing with activity - possible half-way facility Ended session: Pt seated edge of bed with call light within reach, all needs met and JAYDE currie ated on all findings. ASSESSMENT: Donell is a 54 y.o male who presents with failure to thrive. Previously independent at [facility], Donell lives alone in a single level home with 5 steps to enter and a few steps within the h ome. His mother has been staying with him for the last few months; she reports he has been m inimally participating in activity at home, attends outpatient physical therapy 1x/week. Cur rently, he is slightly below his baseline function with fatigue limiting progression of mobi lity. Anticipate he would benefit from a half-way facility for continued strengthenin g and endurance training, PT to follow. Personal factors/Comorbidities; Moderate - 1-2 personal factors. Behavior: Depressive, unmotivated Learning Factors: Coping skills. Social Issues: Medical conditions and Housing situation impacts discharge Medical Conditions Impacting Care: Multiple co-morbidities and Anxiety/depression Body Systems Elements: Moderate - 3 or more elements Body structures & functions: Strength, Balance and Endurance Activity limitations: Impaired gait, Difficulty with stairs and Difficulty with activities of daily living Participation restrictions: Community activities and Caregiver restrictions. Clinical Presentation: Moderate - Evolving: Atypical presentation of condition Clinical decision making: Moderate Complexity: Clinical coordination of care Complexity: moderate Donell's knowledge of disease process: Fair. The patient requires services that can be safely and effectively performed only by a quali fied therapist to address the aforementioned and highlighted problems and goals. PT PLAN: Plan to see patient to achieve highest level of mobility which includes bed mobil ity, transfer training, gait and balance training, patient and/or caregiver education, thera peutic exercise, and use of equipment or durable medical equipment needs. Frequency: 4x/week Duration: 1 week Goals: Problem: PT Goals- Adult Goal: Functional Mobility Goal Description 1. Donell will be indep with supine to sit from a flat bed, no use of bed rails. 2. Donell will be indep sit to stand 3. Donell will ambulate 200 ft indep 4. Donell will safely ascend/descend 5 steps stand by assist with one rail 5. Donell will be independent with home exercise program Outcome: Gradual progress toward goal The above plan of care and goals were developed and reviewed with the patient. ACTIVITY PLAN: *Nursing to re-assess per shift as needed.* - Lights on and curtains open during day hours. - Up to chair for meals or 3x/day with 1 person assist. - Routine ambulation in hallway 3x/day with 1 person assist. -THANK YOU- DISCHARGE RECOMMENDATIONS: 24 hour skilled care;Continued PT at next level of care DME: defer Javi Ren PT, DPT Pager [phone] Should this patient discharge from the hospital prior to the next physical therapy treatmen t, this note shall serve as the discharge summary. lan of Care - Fadia Coughlin, ROXANNE - 10/13/2019 11:05 AM PSTFormatting of this note might be different from the or iginal. Problem: Nutrition Interventions Intervention: Food and nutrient distribution type or amount Patient and mother report pt has had decreased PO intake, usually eating 2 scrambled eggs f or breakfast but often skipping lunch, and eating little for dinner (maybe a 1/2 cup of food ). They have been limiting K in his diet at home and he was drinking Nepro but then had diff iculty finding it. He is willing to have Nepro renal supplement with his meals. Assessed w t change from 09/15 as earlier wt loss was likely related to fluid decrease after transplant . Pt meets the following criteria suggesting: Severe protein-calorie malnutrition Rate of weight loss: 5 % in 1 mo (18.7% since 09/15) Energy intake: <50% energy intake compared to energy requirement for > 7 days Depletion of fat stores: moderate Depletion of muscle mass: moderate Rec: - Continue Regular 2 gm K diet - CBG monitoring, insulin adjustment (add Diabetic diet restriction if needed as PO intake increases) - Nepro supplements with meals - Calorie count x 3 days - Encourage increased PO intake, especially high protein foods such as eggs, meat and fish , nut butters - Will provide TF recs if unable to increase PO intake - Monitor lytes, replete as needed - Daily ambulation - Bowel care prn Nutrition Dx: Severe protein-calorie malnutrition in the context of acute illness resulting in decreased PO intake as evidenced by wt loss, muscle and fat loss. Following, Fadia Verduzco MS, RD, LD Pager #[phone] Admitting Dx: Doug Duran is a 54 y.o. male male who underwent a liver transplant foralcohol cirrhosison 08/16/2019.Pre-operatively he had a prolong admission complicat ed by SVT requiring amiodarone drip, severe malnutrition, KAR/HRS, and spur cell anemia.Hi s post operative course wascomplicated byrenal dysfunctionrequiring dialysis,andpe rsistent ascites/anasarca. His last run ofHD on 09/01. The dialysis catheter was removed o n 09/15. Diet: Regular, 2 gm K PO Intake: 25-45% of 3 meals Oral Supplements: Nepro w ith meals Pertinent Meds: lispro/NPH insulin, MVI, prilosec, prednisone, tacrolimus, Repletions: Ca gluconate 2 gm IV (10/12) IV Fluids: LR @ 100 ml/hr GI: BM x 1 (10/13) I/O: net + 2.5 L since admit Chemistries: Last 72 Hours (or 3 results) - Refreshable Recent Labs 10/12/19 0850 10/12/19 1502 10/12/19 1730 10/12/19 2105 10/13/19 0513 10/13/19 0628 10/13/19 0959 10/13/19 1022 10/13/19 1336 NA 138 132* -- -- -- -- -- 137 -- -- -- -- K 5.7* 6.8* -- 5.6* -- 5.4* -- 5.4* -- -- -- -- CL 105 103 -- -- -- -- -- 104 -- -- -- -- BICARB 29 26 -- -- -- -- -- 27 -- -- -- -- BUN 53* 54* -- -- -- -- -- 52* -- -- -- -- CR 2.24* 2.07* -- -- -- -- -- 1.95* -- -- -- -- GLU 178* 250* < > -- < > -- < > 194* 178* 135* -- 85 CA 10.3* 9.7 -- -- -- -- -- 9.4 -- -- -- -- MG 1.8 1.7 -- -- -- -- -- 1.6 -- -- -- -- PO4 5.1* 4.8* -- -- -- -- -- 5.0* -- -- -- -- WBC 5.34 -- -- -- -- -- -- 3.97 -- -- -- -- HB 11.2* -- -- -- -- -- -- 10.0* -- -- -- -- HCT 34.5* -- -- -- -- -- -- 30.0* -- -- -- -- PLT 101* -- -- -- -- -- -- 85* -- -- -- -- MCV 90.6 -- -- -- -- -- -- 89.3 -- -- -- -- RDW 47.6* -- -- -- -- -- -- 46.3 -- -- -- -- AST 12 -- -- -- -- -- -- 14 -- -- -- -- ALT 18 -- -- -- -- -- -- 15 -- -- -- -- TBILI 0.5 -- -- -- -- -- -- 0.4 -- -- -- -- AP 67 -- -- -- -- -- -- 57 -- -- -- -- TP 7.2 -- -- -- -- -- -- 6.3* -- -- -- -- ALB 4.2 4.1 -- -- -- -- -- 3.7 -- -- -- -- PREALB -- -- -- -- -- -- -- -- -- -- 23.0 -- < > = values in this interval not displayed. Lab Results Component Value Date A1C 8.1 (H) 07/17/2019 CBG Result Av.3 Min: 68 Max: 217 Ht: 71" Admit wt: 78.9 kg BMI: 24.3 kg/m2 IBW: 75.4 kg Wt hx: 105.6 kg (08/24), 97.1 kg (09/15), Estimated Nutrition Needs: 1770-4892 kcals (25-30 kcal/kg), 95-118 gm protein (1.2-1.5 gm/k g) Nutrition Focused Physical Exam: completed 10/13/19. Subcutaneous Fat Orbital/Buccal Region: Moderate Triceps Area: Moderate Midaxillary Line: Unable to assess Muscle (Upper Body) Temporalis: Moderate Clavicle Region (pectoralis major, deltoid, trapezius): Mild Clavicle and Acromion Region (deltoid): Moderate Scapular Region (trapezius, latissimus dorsi): Unable to assess Dorsal Hand (interosseous): WDL Muscle (Lower Body) Patellar Region (quadriceps): Mild Anterior Thigh Region (quadriceps): Mild Posterior Calf Region (gastrocnemius): Mild Other findings: Tongue appeared normal Summary of findings: moderate fat depletion; moderate muscle depletion andoff - Reina Barahona RN - 10/13/2019 5:08 AM PSTNursing Handoff [facility]: Tamez hospital course events: 54 year old male who underwent a liver t ransplant for alcohol cirrhosis on 08/16/2019. Pre-operatively he had a prolong admission co mplicated by SVT requiring amiodarone drip, severe malnutrition, KAR/HRS, and spur cell anem ia. His post operative course was complicated by renal dysfunction requiring dialysis, and p ersistent ascites/anasarca. His last run of HD on 09/01. The dialysis catheter was removed o n 09/15. 10/12-Readmitted for labs. SAFETY Patient/Family Target: Donell will not fall. Progress to Target: No Change As evidenced by: Donell complains of fatigue and needs assistance to get OOB. His Mom reports that he hasn't been getting out of bed. He was able to stand successfully with minimal assistance for daily weight on morning of 10/13. NURSING ASSESSMENT & RECOMMENDATIONS FORWARD Nursing Assessment of Patient Stability Risk: Moderately stable Recommendations Forward: -Encourage activity, as tolerated, and provide assistance, as nece ssary. -Promote nutrition-patient having poor food intake. -Monitor electrolytes-potassium shifted on 10/12 -Monitor CBGs. -Psych consult performed on 10/12 Barriers to discharge: Home with mom TBD andjanay Edmond, Oswald guevara RN - 10/12/2019 7:02 PM PSTNursing Handoff [facility]URSE HANDOFF: Tamez hospital course events: 54 year old male who underwent a liver t ransplant for alcohol cirrhosis on 08/16/2019. Pre-operatively he had a prolong admission co mplicated by SVT requiring amiodarone drip, severe malnutrition, KAR/HRS, and spur cell anem ia. His post operative course was complicated by renal dysfunction requiring dialysis, and p ersistent ascites/anasarca. His last run of HD on 09/01. The dialysis catheter was removed o n 09/15. 10/12-Readmitted for labs. SAFETY Patient/Family Target: Donell will not fall Progress to Target: No Change As evidenced by: Donell is weak and needs assistance to get OOB. He complains of fatigue. Mom reports that he hasn't been getting out of bed. NURSING ASSESSMENT & RECOMMENDATIONS FORWARD Nursing Assessment of Patient Stability Risk: Moderately stable Recommendations Forward: Potassium elevated-D50, insulin, lasix given. Monitor CBGs. Bolus given Psych was by to consult Barriers to discharge: Home with mom TBD documented in this encounter Plan of Treatment +--------+ + + + + | Date | Type | Specialty | Care Team | Description | +--------+ + + + + | 08/08/ | Telephone-S | Nephrology | Angélica Chao, | | 2019 | [place] | | [address] | | | | | | [address] | | | | | | [place], [place] | | | | | | [address] | | | | | | [phone] | | | | | | | | +--------+ + + + + | 09/27/ | Telephone-S | Liver Transplant | Vimal Crowe MD | | | 2019 | [place] | | [address] | | | | | | [address], | | | | | | [place] [address] | | | | | | [phone] | | | | | | | | +--------+ + + + + | 10/03/ | Appointment | Cardiology | | | | 2019 | | | | | +--------+ + + + + | 10/03/ | Office | Cardiology | Cyril Samuel | | | 2019 | Visit | | MD Patricia [address] | | | | | | [address] | | | | | | [place], [place] | | | | | | [address] | | | | | | [phone] | | | | | | | | +--------+ + + + + + + +--------+ + + | Name | Type | Priori | Associated Diagnoses | Order Schedule | | | | ty | | | + + +--------+ + + | DIFFERENTIAL, ADD ON | Lab - | Routin | | 10/27/2019 until | | | Leonora Camargo | e | | herminio, 1 | | | Performable | | [...] + | CAPILLARY BLOOD | Routin | 10/27/2019 | Alcoholic | Results for this | | GLUCOSE (NO CHG), | e | 12:29 PM | cirrhosis of liver | procedure are in the | | POC | | PST | with ascites (HCC) | results section. | + +--------+ + + + | CAPILLARY BLOOD | Routin | 10/27/2019 | Alcoholic | Results for this | | GLUCOSE (NO CHG), | e | 7:57 AM | cirrhosis of liver | procedure are in the | | POC | | PST | with ascites (HCC) | results section. | + +--------+ + + + | DIFFERENTIAL, ADD ON | Routin | 10/27/2019 | | Results for this | | | e | 5:46 AM | | procedure are in the | | | | PST | | results section. | + +--------+ + + + | DIFFERENTIAL, ADD ON | Routin | 10/27/2019 | | Results for this | | | e | 5:46 AM | | procedure are in the | | | | PST | | results section. | + +--------+ + + + | CBC (HEMOGRAM) ONLY | Routin | 10/27/2019 | | Results for this | | | e | 5:46 AM | | procedure are in the | | | | PST | | results section. | + +--------+ + + + | COMPLETE METABOLIC | Routin | 10/27/2019 | | Results for this | | SET | e | 5:46 AM | | procedure are in the | | (NA,K,CL,CO2,BUN,CRE | | PST | | results section. | | AT,GLUC,CA,AST,ALT,B | | | | | | KEV TOTAL,ALK | | | | | | PHOS,ALB,PROT TOTAL) | | | | | + +--------+ + + + | CBC ONLY | Routin | 10/27/2019 | | Results for this | | | e | 5:46 AM | | procedure are in the | | | | PST | | results section. | + +--------+ + + + | TACROLIMUS, WHOLE | Routin | 10/27/2019 | | Results for this | | BLOOD | e | 5:24 AM | | procedure are in the | | | | PST | | results section. | + +--------+ + + + | CAPILLARY BLOOD | Routin | 10/26/2019 | Alcoholic | Results for this | | GLUCOSE (NO CHG), | e | 9:58 PM | cirrhosis of liver | procedure are in the | | POC | | PST | with ascites (HCC) | results section. | + +--------+ + + + | CAPILLARY BLOOD | Routin | 10/26/2019 | Alcoholic | Results for this | | GLUCOSE (NO CHG), | e | 7:48 PM | cirrhosis of liver | procedure are in the | | POC | | PST | with ascites (HCC) | results section. | + +--------+ + + + | CAPILLARY BLOOD | Routin | 10/26/2019 | Alcoholic | Results for this | | GLUCOSE (NO CHG), | e | 1:54 PM | cirrhosis of liver | procedure are in the | | POC | | PST | with ascites (HCC) | results section. | + +--------+ + + + | CAPILLARY BLOOD | Routin | 10/26/2019 | Alcoholic | Results for this | | GLUCOSE (NO CHG), | e | 7:31 AM | cirrhosis of liver | procedure are in the | | POC | | PST | with ascites (HCC) | results section. | + +--------+ + + + | CBC (HEMOGRAM) ONLY | Routin | 10/26/2019 | | Results for this | | | e | 5:47 AM | | procedure are in the | | | | PST | | results section. | + +--------+ + + + | COMPLETE METABOLIC | Routin | 10/26/2019 | | Results for this | | [...] + | TACROLIMUS, WHOLE | Routin | 10/26/2019 | | Results for this | | BLOOD | e | 5:47 AM | | procedure are in the | | | | PST | | results section. | + +--------+ + + + | CBC ONLY | Routin | 10/26/2019 | | Results for this | | | e | 5:47 AM | | procedure are in the | | | | PST | | results section. | + +--------+ + + + | PHOSPHORUS, PLASMA | Routin | 10/26/2019 | | Results for this | | | e | 5:47 AM | | procedure are in the | | | | PST | | results section. | + +--------+ + + + | MAGNESIUM, PLASMA | Routin | 10/26/2019 | | Results for this | | | e | 5:47 AM | | procedure are in the | | | | PST | | results section. | + +--------+ + + + | CARDIOLOGY | | 10/26/2019 | | Results for this | | | | 12:00 AM | | procedure are in the | | | | PST | | results section. | + +--------+ + + + | CARDIOLOGY | | 10/26/2019 | | Results for this | | | | 12:00 AM | | procedure are in the | | | | PST | | results section. | + +--------+ + + + | CARDIOLOGY | | 10/26/2019 | | Results for this | | | | 12:00 AM | | procedure are in the | | | | PST | | results section. | + +--------+ + + + | CAPILLARY BLOOD | Routin | 10/25/2019 | Alcoholic | Results for this | | GLUCOSE (NO CHG), | e | 10:00 PM | cirrhosis of liver | procedure are in the | | POC | | PST | with ascites (HCC) | results section. | + +--------+ + + + | CAPILLARY BLOOD | Routin | 10/25/2019 | Alcoholic | Results for this | | GLUCOSE (NO CHG), | e | 1:03 PM | cirrhosis of liver | procedure are in the | | POC | | PST | with ascites (HCC) | results section. | + +--------+ + + + | CAPILLARY BLOOD | Routin | 10/25/2019 | Alcoholic | Results for this | | GLUCOSE (NO CHG), | e | 7:24 AM | cirrhosis of liver | procedure are in the | | POC | | PST | with ascites (HCC) | results section. | + +--------+ + + + | TACROLIMUS, WHOLE | Routin | 10/25/2019 | | Results for this | | BLOOD | e | 5:39 AM | | procedure are in the | | | | PST | | results section. | + +--------+ + + + | CAPILLARY BLOOD | Routin | 10/25/2019 | Alcoholic | Results for this | | GLUCOSE (NO CHG), | e | 12:20 AM | cirrhosis of liver | procedure are in the | | POC | | PST | with ascites (HCC) | results section. | + +--------+ + + + | CARDIOLOGY | | 10/25/2019 | | Results for this | | | | 12:00 AM | | procedure are in the | | | | PST | | results section. | + +--------+ + + + | CARDIOLOGY | | 10/25/2019 | | Results for this | | | | 12:00 AM | | procedure are in the | | | | PST | | results section. | + +--------+ + + + | CARDIOLOGY | | 10/25/2019 | | Results for this | | | | 12:00 AM | | procedure are in the | | | | PST | | results section. | + +--------+ + + + | CARDIOLOGY | | 10/25/2019 | | Results for this | | | | 12:00 AM | | procedure are in the | | | | PST | | results section. | + +--------+ + + + | CAPILLARY BLOOD | Routin | 10/24/2019 | Alcoholic | Results for this | | GLUCOSE (NO CHG), | e | 9:20 PM | cirrhosis of liver | procedure are in the | | POC | | PST | with ascites (HCC) | results section. | + +--------+ + + + | CAPILLARY BLOOD | Routin | 10/24/2019 | Alcoholic | Results for this | | GLUCOSE (NO CHG), | e | 1:39 PM | cirrhosis of liver | procedure are in the | | POC | | PST | with ascites (HCC) | results section. | + +--------+ + + + | CBC (HEMOGRAM) ONLY | Routin | 10/24/2019 | | Results for this | | | e | 1:04 PM | | procedure are in the | | | | PST | | results section. | + +--------+ + + + | BASIC METABOLIC SET | Routin | 10/24/2019 | | Results for this | | (NA, K, CL, TCO2, | e | 1:04 PM | | procedure are in the | | BUN, CR, GLU, CA) | | PST | | results section. | + +--------+ + + + | CBC ONLY | Routin | 10/24/2019 | | Results for this | | | e | 1:04 PM | | procedure are in the | | | | PST | | results section. | + +--------+ + + + | 12 LEAD ECG | Routin | 10/24/2019 | | Results for this | | | e | 12:50 PM | | procedure are in the | | | | PST | | results section. | + +--------+ + + + | CAPILLARY BLOOD | Routin | 10/24/2019 | Alcoholic | Results for this | | GLUCOSE (NO CHG), | e | 7:55 AM | cirrhosis of liver | procedure are in the | | POC | | PST | with ascites (HCC) | results section. | + +--------+ + + + | TACROLIMUS, WHOLE | Routin | 10/24/2019 | | Results for this | | BLOOD | e | 4:40 AM | | procedure are in the | | | | PST | | results section. | + +--------+ + + + | CAPILLARY BLOOD | Routin | 10/24/2019 | Alcoholic | Results for this | | GLUCOSE (NO CHG), | e | 1:03 AM | cirrhosis of liver | procedure are in the | | POC | | PST | with ascites (HCC) | results section. | + +--------+ + + + | CARDIOLOGY | | 10/24/2019 | | Results for this | | | | 12:00 AM | | procedure are in the | | | | PST | | results section. | + +--------+ + + + | CAPILLARY BLOOD | Routin | 10/23/2019 | Alcoholic | Results for this | | GLUCOSE (NO CHG), | e | 10:33 PM | cirrhosis of liver | procedure are in the | | POC | | PST | with ascites (HCC) | results section. | + +--------+ + + + | CAPILLARY BLOOD | Routin | 10/23/2019 | Alcoholic | Results for this | | GLUCOSE (NO CHG), | e | 9:13 PM | cirrhosis of liver | procedure are in the | | POC | | PST | with ascites (HCC) | results section. | + +--------+ + + + | CAPILLARY BLOOD | Routin | 10/23/2019 | Alcoholic | Results for this | | GLUCOSE (NO CHG), | e | 8:27 PM | cirrhosis of liver | procedure are in the | | POC | | PST | with ascites (HCC) | results section. | + +--------+ + + + | CAPILLARY BLOOD | Routin | 10/23/2019 | Alcoholic | Results for this | | GLUCOSE (NO CHG), | e | 3:11 PM | cirrhosis of liver | procedure are in the | | POC | | PST | with ascites (HCC) | results section. | + +--------+ + + + | CAPILLARY BLOOD | Routin | 10/23/2019 | Alcoholic | Results for this | | GLUCOSE (NO CHG), | e | 7:26 AM | cirrhosis of liver | procedure are in the | | POC | | PST | with ascites (HCC) | results section. | + +--------+ + + + | TACROLIMUS, WHOLE | Routin | 10/23/2019 | | Results for this | | BLOOD | e | 4:45 AM | | procedure are in the | | | | PST | | results section. | + +--------+ + + + | CAPILLARY BLOOD | Routin | 10/22/2019 | Alcoholic | Results for this | | GLUCOSE (NO CHG), | e | 11:48 PM | cirrhosis of liver | procedure are in the | | POC | | PST | with ascites (HCC) | results section. | + +--------+ + + + | CAPILLARY BLOOD | Routin | 10/22/2019 | Alcoholic | Results for this | | GLUCOSE (NO CHG), | e | 8:40 PM | cirrhosis of liver | procedure are in the | | POC | | PST | with ascites (HCC) | results section. | + +--------+ + + + | CAPILLARY BLOOD | Routin | 10/22/2019 | Alcoholic | Results for this | | GLUCOSE (NO CHG), | e | 1:35 PM | cirrhosis of liver | procedure are in the | | POC | | PST | with ascites (HCC) | results section. | + +--------+ + + + | CAPILLARY BLOOD | Routin | 10/22/2019 | Alcoholic | Results for this | | GLUCOSE (NO CHG), | e | 7:14 AM | cirrhosis of liver | procedure are in the | | POC | | PST | with ascites (HCC) | results section. | + +--------+ + + + | CBC (HEMOGRAM) ONLY | Routin | 10/22/2019 | | Results for this | | | e | 5:44 AM | | procedure are in the | | | | PST | | results section. | + +--------+ + + + | COMPLETE METABOLIC | Routin | 10/22/2019 | | Results for this | | SET | e | 5:44 AM | | procedure are in the | | (NA,K,CL,CO2,BUN,CRE | | PST | | results section. | | AT,GLUC,CA,AST,ALT,B | | | | | | KEV TOTAL,ALK | | | | | | PHOS,ALB,PROT TOTAL) | | | | | + +--------+ + + + | TACROLIMUS, WHOLE | Routin | 10/22/2019 | | Results for this | | BLOOD | e | 5:44 AM | | procedure are in the | | | | PST | | results section. | + +--------+ + + + | CBC ONLY | Routin | 10/22/2019 | | Results for this | | | e | 5:44 AM | | procedure are in the | | | | PST | | results section. | + +--------+ + + + | PHOSPHORUS, PLASMA | Routin | 10/22/2019 | | Results for this | | | e | 5:44 AM | | procedure are in the | | | | PST | | results section. | + +--------+ + + + | MAGNESIUM, PLASMA | Routin | 10/22/2019 | | Results for this | | | e | 5:44 AM | | procedure are in the | | | | PST | | results section. | + +--------+ + + + | CARDIOLOGY | | 10/22/2019 | | Results for this | | | | 12:00 AM | | procedure are in the | | | | PST | | results section. | + +--------+ + + + | CAPILLARY BLOOD | Routin | 10/21/2019 | Alcoholic | Results for this | | GLUCOSE (NO CHG), | e | 8:40 PM | cirrhosis of liver | procedure are in the | | POC | | PST | with ascites (HCC) | results section. | + +--------+ + + + | CAPILLARY BLOOD | Routin | 10/21/2019 | Alcoholic | Results for this | | GLUCOSE (NO CHG), | e | 6:19 PM | cirrhosis of liver | procedure are in the | | POC | | PST | with ascites (HCC) | results section. | + +--------+ + + + | CAPILLARY BLOOD | Routin | 10/21/2019 | Alcoholic | Results for this | | GLUCOSE (NO CHG), | e | 2:42 PM | cirrhosis of liver | procedure are in the | | POC | | PST | with ascites (HCC) | results section. | + +--------+ + + + | CBC (HEMOGRAM) ONLY | Routin | 10/21/2019 | | Results for this | | | e | 12:15 PM | | procedure are in the | | | | PST | | results section. | + +--------+ + + + | CBC ONLY | Routin | 10/21/2019 | | Results for this | | | e | 12:15 PM | | procedure are in the | | | | PST | | results section. | + +--------+ + + + | 12 LEAD ECG | Routin | 10/21/2019 | | Results for this | | | e | 10:37 AM | | procedure are in the | | | | PST | | results section. | + +--------+ + + + | COMPLETE METABOLIC | Routin | 10/21/2019 | | Results for this | | SET | e | 9:40 AM | | procedure are in the | | (NA,K,CL,CO2,BUN,CRE | | PST | | results section. | | AT,GLUC,CA,AST,ALT,B | | | | | | KEV TOTAL,ALK | | | | | | PHOS,ALB,PROT TOTAL) | | | | | + +--------+ + + + | PHOSPHORUS, PLASMA | Routin | 10/21/2019 | | Results for this | | | e | 9:40 AM | | procedure are in the | | | | PST | | results section. | + +--------+ + + + | MAGNESIUM, PLASMA | Routin | 10/21/2019 | | Results for this | | | e | 9:40 AM | | procedure are in the | | | | PST | | results section. | + +--------+ + + + | CAPILLARY BLOOD | Routin | 10/21/2019 | Alcoholic | Results for this | | GLUCOSE (NO CHG), | e | 8:02 AM | cirrhosis of liver | procedure are in the | | POC | | PST | with ascites (HCC) | results section. | + +--------+ + + + | TACROLIMUS, WHOLE | Routin | 10/21/2019 | | Results for this | | BLOOD | e | 6:31 AM | | procedure are in the | | | | PST | | results section. | + +--------+ + + + | CAPILLARY BLOOD | Routin | 10/21/2019 | Alcoholic | Results for this | | GLUCOSE (NO CHG), | e | 12:33 AM | cirrhosis of liver | procedure are in the | | POC | | PST | with ascites (HCC) | results section. | + +--------+ + + + | CARDIOLOGY | | 10/21/2019 | | Results for this | | | | 12:00 AM | | procedure are in the | | | | PST | | results section. | + +--------+ + + + | CARDIOLOGY | | 10/21/2019 | | Results for this | | | | 12:00 AM | | procedure are in the | | | | PST | | results section. | + +--------+ + + + | CARDIOLOGY | | 10/21/2019 | | Results for this | | | | 12:00 AM | | procedure are in the | | | | PST | | results section. | + +--------+ + + + | CAPILLARY BLOOD | Routin | 10/20/2019 | Alcoholic | Results for this | | GLUCOSE (NO CHG), | e | 8:17 PM | cirrhosis of liver | procedure are in the | | POC | | PST | with ascites (HCC) | results section. | + +--------+ + + + | CAPILLARY BLOOD | Routin | 10/20/2019 | Alcoholic | Results for this | | GLUCOSE (NO CHG), | e | 6:37 PM | cirrhosis of liver | procedure are in the | | POC | | PST | with ascites (HCC) | results section. | + +--------+ + + + | CAPILLARY BLOOD | Routin | 10/20/2019 | Alcoholic | Results for this | | GLUCOSE (NO CHG), | e | 1:39 PM | cirrhosis of liver | procedure are in the | | POC | | PST | with ascites (HCC) | results section. | + +--------+ + + + | CAPILLARY BLOOD | Routin | 10/20/2019 | Alcoholic | Results for this | | GLUCOSE (NO CHG), | e | 8:01 AM | cirrhosis of liver | procedure are in the | | POC | | PST | with ascites (HCC) | results section. | + +--------+ + + + | CBC (HEMOGRAM) ONLY | Routin | 10/20/2019 | | Results for this | | | e | 6:02 AM | | procedure are in the | | | | PST | | results section. | + +--------+ + + + | COMPLETE METABOLIC | Routin | 10/20/2019 | | Results for this | | SET | e | 6:02 AM | | procedure are in the | | (NA,K,CL,CO2,BUN,CRE | | PST | | results section. | | AT,GLUC,CA,AST,ALT,B | | | | | | KEV TOTAL,ALK | | | | | | PHOS,ALB,PROT TOTAL) | | | | | + +--------+ + + + | TACROLIMUS, WHOLE | Routin | 10/20/2019 | | Results for this | | BLOOD | e | 6:02 AM | | procedure are in the | | | | PST | | results section. | + +--------+ + + + | CBC ONLY | Routin | 10/20/2019 | | Results for this | | | e | 6:02 AM | | procedure are in the | | | | PST | | results section. | + +--------+ + + + | PHOSPHORUS, PLASMA | Routin | 10/20/2019 | | Results for this | | | e | 6:02 AM | | procedure are in the | | | | PST | | results section. | + +--------+ + + + | MAGNESIUM, PLASMA | Routin | 10/20/2019 | | Results for this | | | e | 6:02 AM | | procedure are in the | | | | PST | | results section. | + +--------+ + + + | CAPILLARY BLOOD | Routin | 10/19/2019 | Alcoholic | Results for this | | GLUCOSE (NO CHG), | e | 9:00 PM | cirrhosis of liver | procedure are in the | | POC | | PST | with ascites (HCC) | results section. | + +--------+ + + + | CAPILLARY BLOOD | Routin | 10/19/2019 | Alcoholic | Results for this | | GLUCOSE (NO CHG), | e | 4:54 PM | cirrhosis of liver | procedure are in the | | POC | | PST | with ascites (HCC) | results section. | + +--------+ + + + | OSMOLALITY, URINE | Routin | 10/19/2019 | | Results for this | | SPOT | e | 12:41 PM | | procedure are in the | | | | PST | | results section. | + +--------+ + + + | UREA NITROGEN, URINE | Routin | 10/19/2019 | | Results for this | | | e | 12:41 PM | | procedure are in the | | | | PST | | results section. | + +--------+ + + + | CREATININE, URINE | Routin | 10/19/2019 | | Results for this | | | e | 12:41 PM | | procedure are in the | | | | PST | | results section. | + +--------+ + + + | CAPILLARY BLOOD | Routin | 10/19/2019 | Alcoholic | Results for this | | GLUCOSE (NO CHG), | e | 7:56 AM | cirrhosis of liver | procedure are in the | | POC | | PST | with ascites (HCC) | results section. | + +--------+ + + + | TACROLIMUS, WHOLE | Routin | 10/19/2019 | | Results for this | | BLOOD | e | 6:44 AM | | procedure are in the | | | | PST | | results section. | + +--------+ + + + | CBC (HEMOGRAM) ONLY | Routin | 10/19/2019 | | Results for this | | | e | 6:43 AM | | procedure are in the | | | | PST | | results section. | + +--------+ + + + | COMPLETE METABOLIC | Routin | 10/19/2019 | | Results for this | | SET | e | 6:43 AM | | procedure are in the | | (NA,K,CL,CO2,BUN,CRE | | PST | | results section. | | AT,GLUC,CA,AST,ALT,B | | | | | | KEV TOTAL,ALK | | | | | | PHOS,ALB,PROT TOTAL) | | | | | + +--------+ + + + | CBC ONLY | Routin | 10/19/2019 | | Results for this | | | e | 6:43 AM | | procedure are in the | | | | PST | | results section. | + +--------+ + + + | PHOSPHORUS, PLASMA | Routin | 10/19/2019 | | Results for this | | | e | 6:43 AM | | procedure are in the | | | | PST | | results section. | + +--------+ + + + | MAGNESIUM, PLASMA | Routin | 10/19/2019 | | Results for this | | | e | 6:43 AM | | procedure are in the | | | | PST | | results section. | + +--------+ + + + | CAPILLARY BLOOD | Routin | 10/18/2019 | Alcoholic | Results for this | | GLUCOSE (NO CHG), | e | 9:42 PM | cirrhosis of liver | procedure are in the | | POC | | PST | with ascites (HCC) | results section. | + +--------+ + + + | CAPILLARY BLOOD | Routin | 10/18/2019 | Alcoholic | Results for this | | GLUCOSE (NO CHG), | e | 1:40 PM | cirrhosis of liver | procedure are in the | | POC | | PST | with ascites (HCC) | results section. | + +--------+ + + + | CAPILLARY BLOOD | Routin | 10/18/2019 | Alcoholic | Results for this | | GLUCOSE (NO CHG), | e | 7:44 AM | cirrhosis of liver | procedure are in the | | POC | | PST | with ascites (HCC) | results section. | + +--------+ + + + | CBC (HEMOGRAM) ONLY | Routin | 10/18/2019 | | Results for this | | | e | 5:17 AM | | procedure are in the | | | | PST | | results section. | + +--------+ + + + | COMPLETE METABOLIC | Routin | 10/18/2019 | | Results for this | | SET | e | 5:17 AM | | procedure are in the | | (NA,K,CL,CO2,BUN,CRE | | PST | | results section. | | AT,GLUC,CA,AST,ALT,B | | | | | | KEV TOTAL,ALK | | | | | | PHOS,ALB,PROT TOTAL) | | | | | + +--------+ + + + | TACROLIMUS, WHOLE | Routin | 10/18/2019 | | Results for this | | BLOOD | e | 5:17 AM | | procedure are in the | | | | PST | | results section. | + +--------+ + + + | CBC ONLY | Routin | 10/18/2019 | | Results for this | | | e | 5:17 AM | | procedure are in the | | | | PST | | results section. | + +--------+ + + + | PHOSPHORUS, PLASMA | Routin | 10/18/2019 | | Results for this | | | e | 5:17 AM | | procedure are in the | | | | PST | | results section. | + +--------+ + + + | MAGNESIUM, PLASMA | Routin | 10/18/2019 | | Results for this | | | e | 5:17 AM | | procedure are in the | | | | PST | | results section. | + +--------+ + + + | CAPILLARY BLOOD | Routin | 10/17/2019 | Alcoholic | Results for this | | GLUCOSE (NO CHG), | e | 9:15 PM | cirrhosis of liver | procedure are in the | | POC | | PST | with ascites (HCC) | results section. | + +--------+ + + + | CAPILLARY BLOOD | Routin | 10/17/2019 | Alcoholic | Results for this | | GLUCOSE (NO CHG), | e | 4:53 PM | cirrhosis of liver | procedure are in the | | POC | | PST | with ascites (HCC) | results section. | + +--------+ + + + | CAPILLARY BLOOD | Routin | 10/17/2019 | Alcoholic | Results for this | | GLUCOSE (NO CHG), | e | 3:53 PM | cirrhosis of liver | procedure are in the | | POC | | PST | with ascites (HCC) | results section. | + +--------+ + + + | CAPILLARY BLOOD | Routin | 10/17/2019 | Alcoholic | Results for this | | GLUCOSE (NO CHG), | e | 9:55 AM | cirrhosis of liver | procedure are in the | | POC | | PST | with ascites (HCC) | results section. | + +--------+ + + + | COMPLETE METABOLIC | Routin | 10/17/2019 | | Results for this | | SET | e | 4:46 AM | | procedure are in the | | (NA,K,CL,CO2,BUN,CRE | | PST | | results section. | | AT,GLUC,CA,AST,ALT,B | | | | | | KEV TOTAL,ALK | | | | | | PHOS,ALB,PROT TOTAL) | | | | | + +--------+ + + + | TACROLIMUS, WHOLE | Routin | 10/17/2019 | | Results for this | | BLOOD | e | 4:46 AM | | procedure are in the | | | | PST | | results section. | + +--------+ + + + | PHOSPHORUS, PLASMA | Routin | 10/17/2019 | | Results for this | | | e | 4:46 AM | | procedure are in the | | | | PST | | results section. | + +--------+ + + + | MAGNESIUM, PLASMA | Routin | 10/17/2019 | | Results for this | | | e | 4:46 AM | | procedure are in the | | | | PST | | results section. | + +--------+ + + + | CBC (HEMOGRAM) ONLY | Routin | 10/17/2019 | | Results for this | | | e | 4:45 AM | | procedure are in the | | | | PST | | results section. | + +--------+ + + + | CBC ONLY | Routin | 10/17/2019 | | Results for this | | | e | 4:45 AM | | procedure are in the | | | | PST | | results section. | + +--------+ + + + | CAPILLARY BLOOD | Routin | 10/16/2019 | Alcoholic | Results for this | | GLUCOSE (NO CHG), | e | 10:57 PM | cirrhosis of liver | procedure are in the | | POC | | PST | with ascites (HCC) | results section. | + +--------+ + + + | CAPILLARY BLOOD | Routin | 10/16/2019 | Alcoholic | Results for this | | GLUCOSE (NO CHG), | e | 8:21 PM | cirrhosis of liver | procedure are in the | | POC | | PST | with ascites (HCC) | results section. | + +--------+ + + + | CAPILLARY BLOOD | Routin | 10/16/2019 | Alcoholic | Results for this | | GLUCOSE (NO CHG), | e | 2:54 PM | cirrhosis of liver | procedure are in the | | POC | | PST | with ascites (HCC) | results section. | + +--------+ + + + | CAPILLARY BLOOD | Routin | 10/16/2019 | Alcoholic | Results for this | | GLUCOSE (NO CHG), | e | 8:05 AM | cirrhosis of liver | procedure are in the | | POC | | PST | with ascites (HCC) | results section. | + +--------+ + + + | CBC (HEMOGRAM) ONLY | Routin | 10/16/2019 | | Results for this | | | e | 5:59 AM | | procedure are in the | | | | PST | | results section. | + +--------+ + + + | COMPLETE METABOLIC | Routin | 10/16/2019 | | Results for this | | SET | e | 5:59 AM | | procedure are in the | | (NA,K,CL,CO2,BUN,CRE | | PST | | results section. | | AT,GLUC,CA,AST,ALT,B | | | | | | KEV TOTAL,ALK | | | | | | PHOS,ALB,PROT TOTAL) | | | | | + +--------+ + + + | TACROLIMUS, WHOLE | Routin | 10/16/2019 | | Results for this | | BLOOD | e | 5:59 AM | | procedure are in the | | | | PST | | results section. | + +--------+ + + + | CBC ONLY | Routin | 10/16/2019 | | Results for this | | | e | 5:59 AM | | procedure are in the | | | | PST | | results section. | + +--------+ + + + | PHOSPHORUS, PLASMA | Routin | 10/16/2019 | | Results for this | | | e | 5:59 AM | | procedure are in the | | | | PST | | results section. | + +--------+ + + + | MAGNESIUM, PLASMA | Routin | 10/16/2019 | | Results for this | | | e | 5:59 AM | | procedure are in the | | | | PST | | results section. | + +--------+ + + + | CAPILLARY BLOOD | Routin | 10/15/2019 | Alcoholic | Results for this | | GLUCOSE (NO CHG), | e | 9:59 PM | cirrhosis of liver | procedure are in the | | POC | | PST | with ascites (HCC) | results section. | + +--------+ + + + | CAPILLARY BLOOD | Routin | 10/15/2019 | Alcoholic | Results for this | | GLUCOSE (NO CHG), | e | 8:25 PM | cirrhosis of liver | procedure are in the | | POC | | PST | with ascites (HCC) | results section. | + +--------+ + + + | CAPILLARY BLOOD | Routin | 10/15/2019 | Alcoholic | Results for this | | GLUCOSE (NO CHG), | e | 2:06 PM | cirrhosis of liver | procedure are in the | | POC | | PST | with ascites (HCC) | results section. | + +--------+ + + + | CAPILLARY BLOOD | Routin | 10/15/2019 | Alcoholic | Results for this | | GLUCOSE (NO CHG), | e | 10:39 AM | cirrhosis of liver | procedure are in the | | POC | | PST | with ascites (HCC) | results section. | + +--------+ + + + | CAPILLARY BLOOD | Routin | 10/15/2019 | Alcoholic | Results for this | | GLUCOSE (NO CHG), | e | 6:15 AM | cirrhosis of liver | procedure are in the | | POC | | PST | with ascites (HCC) | results section. | + +--------+ + + + | CBC (HEMOGRAM) ONLY | Routin | 10/15/2019 | | Results for this | | | e | 5:16 AM | | procedure are in the | | | | PST | | results section. | + +--------+ + + + | COMPLETE METABOLIC | Routin | 10/15/2019 | | Results for this | | [...] + | TACROLIMUS, WHOLE | Routin | 10/15/2019 | | Results for this | | BLOOD | e | 5:16 AM | | procedure are in the | | | | PST | | results section. | + +--------+ + + + | CBC ONLY | Routin | 10/15/2019 | | Results for this | | | e | 5:16 AM | | procedure are in the | | | | PST | | results section. | + +--------+ + + + | PHOSPHORUS, PLASMA | Routin | 10/15/2019 | | Results for this | | | e | 5:16 AM | | procedure are in the | | | | PST | | results section. | + +--------+ + + + | MAGNESIUM, PLASMA | Routin | 10/15/2019 | | Results for this | | | e | 5:16 AM | | procedure are in the | | | | PST | | results section. | + +--------+ + + + | CAPILLARY BLOOD | Routin | 10/14/2019 | Alcoholic | Results for this | | GLUCOSE (NO CHG), | e | 11:59 PM | cirrhosis of liver | procedure are in the | | POC | | PST | with ascites (HCC) | results section. | + +--------+ + + + | CAPILLARY BLOOD | Routin | 10/14/2019 | Alcoholic | Results for this | | GLUCOSE (NO CHG), | e | 8:48 PM | cirrhosis of liver | procedure are in the | | POC | | PST | with ascites (HCC) | results section. | + +--------+ + + + | CAPILLARY BLOOD | Routin | 10/14/2019 | Alcoholic | Results for this | | GLUCOSE (NO CHG), | e | 1:17 PM | cirrhosis of liver | procedure are in the | | POC | | PST | with ascites (HCC) | results section. | + +--------+ + + + | CAPILLARY BLOOD | Routin | 10/14/2019 | Severe | Results for this | | GLUCOSE (NO CHG), | e | 7:43 AM | protein-calorie | procedure are in the | | POC | | PST | malnutrition (HCC) | results section. | + +--------+ + + + | CAPILLARY BLOOD | Routin | 10/14/2019 | Severe | Results for this | | GLUCOSE (NO CHG), | e | 6:22 AM | protein-calorie | procedure are in the | | POC | | PST | malnutrition (HCC) | results section. | + +--------+ + + + | CBC (HEMOGRAM) ONLY | Routin | 10/14/2019 | | Results for this | | | e | 4:51 AM | | procedure are in the | | | | PST | | results section. | + +--------+ + + + | COMPLETE METABOLIC | Routin | 10/14/2019 | | Results for this | | SET | e | 4:51 AM | | procedure are in the | | (NA,K,CL,CO2,BUN,CRE | | PST | | results section. | | AT,GLUC,CA,AST,ALT,B | | | | | | KEV TOTAL,ALK | | | | | | PHOS,ALB,PROT TOTAL) | | | | | + +--------+ + + + | TACROLIMUS, WHOLE | Routin | 10/14/2019 | | Results for this | | BLOOD | e | 4:51 AM | | procedure are in the | | | | PST | | results section. | + +--------+ + + + | CBC ONLY | Routin | 10/14/2019 | | Results for this | | | e | 4:51 AM | | procedure are in the | | | | PST | | results section. | + +--------+ + + + | PHOSPHORUS, PLASMA | Routin | 10/14/2019 | | Results for this | | | e | 4:51 AM | | procedure are in the | | | | PST | | results section. | + +--------+ + + + | MAGNESIUM, PLASMA | Routin | 10/14/2019 | | Results for this | | | e | 4:51 AM | | procedure are in the | | | | PST | | results section. | + +--------+ + + + | CAPILLARY BLOOD | Routin | 10/13/2019 | Severe | Results for this | | GLUCOSE (NO CHG), | e | 11:16 PM | protein-calorie | procedure are in the | | POC | | PST | malnutrition (HCC) | results section. | + +--------+ + + + | CAPILLARY BLOOD | Routin | 10/13/2019 | Severe | Results for this | | GLUCOSE (NO CHG), | e | 10:12 PM | protein-calorie | procedure are in the | | POC | | PST | malnutrition (HCC) | results section. | + +--------+ + + + | CAPILLARY BLOOD | Routin | 10/13/2019 | Severe | Results for this | | GLUCOSE (NO CHG), | e | 6:33 PM | protein-calorie | procedure are in the | | POC | | PST | malnutrition (HCC) | results section. | + +--------+ + + + | CAPILLARY BLOOD | Routin | 10/13/2019 | Severe | Results for this | | GLUCOSE (NO CHG), | e | 1:36 PM | protein-calorie | procedure are in the | | POC | | PST | malnutrition (HCC) | results section. | + +--------+ + + + | PREALBUMIN, SERUM | Routin | 10/13/2019 | | Results for this | | | e | 10:22 AM | | procedure are in the | | | | PST | | results section. | + +--------+ + + + | TSH | Routin | 10/13/2019 | | Results for this | | | e | 10:22 AM | | procedure are in the | | | | PST | | results section. | + +--------+ + + + | VITAMIN B-12 | Routin | 10/13/2019 | | Results for this | | | e | 10:22 AM | | procedure are in the | | | | PST | | results section. | + +--------+ + + + | LDH TOTAL, PLASMA | Routin | 10/13/2019 | | Results for this | | | e | 10:22 AM | | procedure are in the | | | | PST | | results section. | + +--------+ + + + | CAPILLARY BLOOD | Routin | 10/13/2019 | Severe | Results for this | | GLUCOSE (NO CHG), | e | 9:59 AM | protein-calorie | procedure are in the | | POC | | PST | malnutrition (HCC) | results section. | + +--------+ + + + | CAPILLARY BLOOD | Routin | 10/13/2019 | Severe | Results for this | | GLUCOSE (NO CHG), | e | 6:28 AM | protein-calorie | procedure are in the | | POC | | PST | malnutrition (HCC) | results section. | + +--------+ + + + | CBC (HEMOGRAM) ONLY | Routin | 10/13/2019 | | Results for this | | | e | 5:13 AM | | procedure are in the | | | | PST | | results section. | + +--------+ + + + | COMPLETE METABOLIC | Routin | 10/13/2019 | | Results for this | | SET | e | 5:13 AM | | procedure are in the | | (NA,K,CL,CO2,BUN,CRE | | PST | | results section. | | AT,GLUC,CA,AST,ALT,B | | | | | | KEV TOTAL,ALK | | | | | | PHOS,ALB,PROT TOTAL) | | | | | + +--------+ + + + | TACROLIMUS, WHOLE | Routin | 10/13/2019 | | Results for this | | BLOOD | e | 5:13 AM | | procedure are in the | | | | PST | | results section. | + +--------+ + + + | CBC ONLY | Routin | 10/13/2019 | | Results for this | | | e | 5:13 AM | | procedure are in the | | | | PST | | results section. | + +--------+ + + + | PHOSPHORUS, PLASMA | Routin | 10/13/2019 | | Results for this | | | e | 5:13 AM | | procedure are in the | | | | PST | | results section. | + +--------+ + + + | MAGNESIUM, PLASMA | Routin | 10/13/2019 | | Results for this | | | e | 5:13 AM | | procedure are in the | | | | PST | | results section. | + +--------+ + + + | CAPILLARY BLOOD | Routin | 10/13/2019 | Severe | Results for this | | GLUCOSE (NO CHG), | e | 12:49 AM | protein-calorie | procedure are in the | | POC | | PST | malnutrition (HCC) | results section. | + +--------+ + + + | CAPILLARY BLOOD | Routin | 10/12/2019 | Severe | Results for this | | GLUCOSE (NO CHG), | e | 11:20 PM | protein-calorie | procedure are in the | | POC | | PST | malnutrition (HCC) | results section. | + +--------+ + + + | CAPILLARY BLOOD | Routin | 10/12/2019 | Severe | Results for this | | GLUCOSE (NO CHG), | e | 10:39 PM | protein-calorie | procedure are in the | | POC | | PST | malnutrition (HCC) | results section. | + +--------+ + + + | POTASSIUM, PLASMA | Routin | 10/12/2019 | | Results for this | | | e | 9:05 PM | | procedure are in the | | | | PST | | results section. | + +--------+ + + + | CAPILLARY BLOOD | Routin | 10/12/2019 | Severe | Results for this | | GLUCOSE (NO CHG), | e | 7:56 PM | protein-calorie | procedure are in the | | POC | | PST | malnutrition (HCC) | results section. | + +--------+ + + + | CAPILLARY BLOOD | Routin | 10/12/2019 | Severe | Results for this | | GLUCOSE (NO CHG), | e | 5:59 PM | protein-calorie | procedure are in the | | POC | | PST | malnutrition (HCC) | results section. | + +--------+ + + + | POTASSIUM, PLASMA | Routin | 10/12/2019 | | Results for this | | | e | 5:30 PM | | procedure are in the | | | | PST | | results section. | + +--------+ + + + | 12 LEAD ECG | Routin | 10/12/2019 | | Results for this | | | e | 5:26 PM | | procedure are in the | | | | PST | | results section. | + +--------+ + + + | CAPILLARY BLOOD | Routin | 10/12/2019 | Severe | Results for this | | GLUCOSE (NO CHG), | e | 5:15 PM | protein-calorie | procedure are in the | | POC | | PST | malnutrition (HCC) | results section. | + +--------+ + + + | SODIUM TOTAL, URINE | Routin | 10/12/2019 | | Results for this | | | e | 4:27 PM | | procedure are in the | | | | PST | | results section. | + +--------+ + + + | CREATININE, URINE | Routin | 10/12/2019 | | Results for this | | | e | 4:27 PM | | procedure are in the | | | | PST | | results section. | + +--------+ + + + | RENAL FUNCTION SET | Routin | 10/12/2019 | | Results for this | | (NA,K,CL,CO2,BUN,CRE | e | 3:02 PM | | procedure are in the | | AT,GLUC,CA,PHOS,ALB | | PST | | results section. | | ) | | | | | + +--------+ + + + | MAGNESIUM, PLASMA | Routin | 10/12/2019 | | Results for this | | | e | 3:02 PM | | procedure are in the | | | | PST | | results section. | + +--------+ + + + documented in this encounter Results CAPILLARY BLOOD GLUCOSE (NO CHG), POC (10/27/2019 12:29 PM PST) + +---------+ + + + [...] [facility] | [address] | [place], [place] | | | [facility] | [facility] | [address] | | | TESTS | | | | + + + + + CAPILLARY BLOOD GLUCOSE (NO CHG), POC (10/27/2019 7:57 AM PST) + +---------+ + + + | Component | Value | Ref Range | Performed | Pathologist | | | | | At | Signature | + +---------+ + + + | BLOOD | 117 (H) | 70 - 99 mg/dL | [facility] - | | | GLUCOSE, | | [...] + | [facility] | [address] | [place], [place] | | | [facility] | [facility] | [address] | | | TESTS | | | | + + + + + MAK, ADD ON (10/27/2019 5:46 AM PST) + + + + + + | Component | Value | Ref Range | Performed | Pathologist | | | | | At | Signature | + + + + + + | NEUTROPHIL | 34.5 (L) | 50.0 - 70.0 % | [facility] | | | % | | | LABORATORY | | | | | | SERVICES, | | | | | | CORE | | + + + + + + | LYMPHOCYTE | 44.5 (H) | 18.0 - 42.0 % | [facility] | | | % | | | LABORATORY | | | | | | SERVICES, | | | | | | CORE | | + + + + + + | MONOCYTE % | 14.5 (H) | 3.5 - 9.0 % | [facility] | | | | | | LABORATORY | | | | | | SERVICES, | | | | | | CORE | | + + + + + + | EOS % | 5.0 (H) | 1.0 - 3.0 % | [...] + + + + | NEUTROPHIL | 0.69 (L) | 1.80 - 7.70 | [facility] [...] + + + | MONOCYTE # | 0.29 | 0.10 - 0.90 | [facility] | [...] [facility] | [address] | [place] [address] | | | SERVICES, CORE | [address] | | | + + + + + CBC (HEMOGRAM) ONLY (10/27/2019 5:46 AM PST) + + + + + + | Component | Value | Ref Range | Performed | Pathologist | | | | | At | Signature | + + + + + + | WHITE CELL | 1.85 (L) | 3.50 - 10.80 | [facility] | | | COUNT | | K/cu mm | LABORATORY | | | | | | SERVICES, | | | | | | CORE | | + + + + + + | RED CELL | 3.25 (L) | 4.50 - 6.00 | [facility] | | | COUNT | | M/cu mm | LABORATORY | | | | | | SERVICES, | | | | | | CORE | | + + + + + + | HEMOGLOBIN | 9.1 (L) | 13.5 - 17.5 | [facility] | | | | | g/dL | LABORATORY | | | | | | SERVICES, | | | | | | CORE | | + + + + + + | HEMATOCRIT | 29.4 (L) | 41.0 - 53.0 % | [facility] | | | | | | LABORATORY | | | | | | SERVICES, | | | | | | CORE | | + + + + + + | MCV | 90.5 | 80.0 - 100.0 fL | [facility] | | | | | | LABORATORY | | | | | | SERVICES, | | | | | | CORE | | + + + + + + | MCHC | 31.0 (L) | 32.0 - 36.0 | [facility] [...] + + + + | PLATELET | 63 (L) | 150 - 400 K/cu | [...] + | [facility] | [address] | [place] [address] | | | SERVICES, CORE | [address] | | | + + + + + COMPLETE METABOLIC SET (NA,K,CL,CO2,BUN,CREAT,GLUC,CA,AST,ALT,BILI TOTAL,ALK PHOS,ALB,PROT TOTAL) (10/27/2019 5:46 AM PST) + + + + + + | Component | Value | Ref Range | Performed | Pathologist | | | | | At | Signature | + + + + + + | GLUCOSE, | 113 (H) | 70 - 99 mg/dL | [...] + + + | CREATININE | 2.07 (H) | 0.70 - 1.30 | [facility] | | | PLASMA | | mg/dL | LABORATORY | | | (LAB) | | | SERVICES, | | | | | | CORE | | + + + + + + | EGFR | 41 (L) | >60 mL/min | [facility] | | | - | | | LABORATORY | | | [facility] | | | SERVICES, | | | [...] + + | ALK PHOS | 48 (L) | 53 - 128 U/L | [...] + + + + | BUN/CREATIN | 20 | 8 - 25 | [facility] | [...] | + + + + + | [facility] | [address] | [place] [address] | | | SERVICES, [facility] | [address] | | | + + + + + TACROLIMUS, WHOLE BLOOD (10/27/2019 5:24 AM PST) + + + + + + | Component | Value | Ref Range | Performed | Pathologist | | | | | At | Signature | + + + + + + | TACROLIMUS | Comment: See scanned | | [facility] | | | ([address] [facility]) | report | | REFERENCE | | | | [...] + CAPILLARY BLOOD GLUCOSE (NO CHG), POC (10/26/2019 9:58 PM PST) + +-------+ + + + [...] | [facility] | [address] | [place], [place] | | | [facility] | [address] | [address] | | | TESTS | | | | + + + + + CAPILLARY BLOOD GLUCOSE (NO CHG), POC (10/26/2019 7:48 PM PST) + +---------+ + + + [...] | [facility] | [address] | [place], [place] | | | [facility] | [address] | [address] | | | TESTS | | | | + + + + + CAPILLARY BLOOD GLUCOSE (NO CHG), POC (10/26/2019 1:54 PM PST) + +---------+ + + + | Component | Value | Ref Range | Performed | Pathologist | | | | | At | Signature | + +---------+ + + + | BLOOD | 120 (H) | 70 - 99 [...] + | [facility] | [address] | [place], [place] | | | [facility] | [address] | [address] | | | TESTS | | | | + + + + + CAPILLARY BLOOD GLUCOSE (NO CHG), POC (10/26/2019 7:31 AM PST) + +-------+ + + + | Component | Value | Ref Range | Performed | Pathologist | | | | | At | Signature | + +-------+ + + + | BLOOD | 96 | 70 - 99 mg/dL | [facility] [...] | [facility] | [address] | [place], [place] | | | [facility] | [address] | [address] | | | TESTS | | | | + + + + + CBC (HEMOGRAM) ONLY (10/26/2019 5:47 AM PST) + + + + + + | Component | Value | Ref Range | Performed | Pathologist | | | | | At | Signature | + + + + + + | WHITE CELL | 1.93 (L) | 3.50 - 10.80 | [facility] | | | COUNT | | K/cu mm | LABORATORY | | | | | | SERVICES, | | | | | | CORE | | + + + + + + | RED CELL | 3.41 (L) | 4.50 - 6.00 | [facility] [...] + + + + | MCV | 90.3 | 80.0 - 100.0 fL | [facility] [...] + + + | RDW SD | 45.5 | 35.1 - 46.3 fL | [facility] [...] | + + + + + | [facility] | [address] | [place] [address] | | | SERVICES, CORE | [address] | | | + + + + + MAGNESIUM, PLASMA (10/26/2019 5:47 AM PST) + +-------+ + + + | Component | Value | Ref Range | Performed | Pathologist | | | | | At | Signature | + +-------+ + + + | MAGNESIUM,P | 1.6 | 1.6 - 2.6 mg/dL | [facility] | | | LASMA | | | LABORATORY | | | | | | CLAUDIA, | | | | | | [facility] | | + +-------+ + + + + + | Specimen | + + | Blood - Blood | | (substance) | + + + + + + + | Performing | Address | City/State/Zipcode | Phone Number | | Organization | | | | + + + + + | [facility] | [address] | [place] [address] | | | ARTIS TAYLOR | [address] | | | + + + + + COMPLETE METABOLIC SET (NA,K,CL,CO2,BUN,CREAT,GLUC,CA,AST,ALT,BILI TOTAL,ALK PHOS,ALB,PROT TOTAL) (10/26/2019 5:47 AM PST) + + + + + + | Component | Value | Ref Range | Performed | Pathologist | | | | | At | Signature | + + + + + + | GLUCOSE, | 112 (H) | 70 - 99 [...] + + + | CREATININE | 2.16 (H) | 0.70 - 1.30 | [facility] | | | PLASMA | | mg/dL | LABORATORY | | | (LAB) | | | SERVICES, | | | | | | CORE | | + + + + + + | EGFR | 39 (L) | >60 mL/min | [facility] | | | - | | | LABORATORY | | | [facility] | | | SERVICES, | | | [...] + | ALT (SGPT) | 21 | <=60 U/L | [facility] | | [...] mL/min/1.73 sq m Chronic Kidney | SERVICES, [facility] | | Disease <15 [...] + + | Performing | Address | City/State[facility] | Phone Number | | Organization | | | | + + + + + | [facility] | [address] | [place] [address] | | | CLAUDIA, ART[place] | [address] | | | + + + + + TACROLIMUS, WHOLE BLOOD (10/26/2019 5:47 AM PST) + + + + + + | Component | Value | Ref Range | Performed | Pathologist | | | | | At | Signature | + + + + + + | TACROLIMUS | Comment: See scan | | [facility] | | | ([address]) | | | REFERENCE | | | [...] + + + + + PHOSPHORUS, PLASMA (10/26/2019 5:47 AM PST) + +---------+ + + + [...] | + + + + + | [facility] | [address] | [place] [address] | | | CLAUDIA, ARTIS | [address] | | | + + + + + CARDIOLOGY (10/26/2019 12:00 AM PST) + + + | Narrative | Performed At | + + + | | | + + + CARDIOLOGY (10/26/2019 12:00 AM PST) + + + | Narrative | Performed At | + + + | | | + + + CARDIOLOGY (10/26/2019 12:00 AM PST) + + + | Narrative | Performed At | + + + | | | + + + CAPILLARY BLOOD GLUCOSE (NO CHG), POC (10/25/2019 10:00 PM PST) + +---------+ + + + | Component | Value | Ref Range | Performed | Pathologist | | | | | At | Signature | + +---------+ + + + | BLOOD | 168 (H) | 70 - 99 mg/dL | [...] | [facility] | [address] | [place], [place] | | | [facility] | [address] | [address] | | | TESTS | | | | + + + + + CAPILLARY BLOOD GLUCOSE (NO CHG), POC (10/25/2019 1:03 PM PST) + +---------+ + + + | Component | Value | Ref Range | Performed | Pathologist | | | | | At | Signature | + +---------+ + + + | BLOOD | 120 (H) | 70 - 99 [...] | [facility] | [address] | [place], [place] | | | [facility] | [facility] | [address] | | | TESTS | | | | + + + + + CAPILLARY BLOOD GLUCOSE (NO CHG), POC (10/25/2019 7:24 AM PST) + +---------+ + + + | Component | Value | Ref Range | Performed | Pathologist | | | | | At | Signature | + +---------+ + + + | BLOOD | 109 (H) | 70 - 99 mg/dL | [...] + | [facility] | [address] | [place], [place] | | | [facility] | [address] | [address] | | | TESTS | | | | + + + + + TACROLIMUS, WHOLE BLOOD (10/25/2019 5:39 AM PST) + + + + + + | Component | Value | Ref Range | Performed | Pathologist | | | | | At | Signature | + + + + + + | TACROLIMUS | Comment: See scan | | [facility] | | | ([address]) | | | REFERENCE | | | [...] + CAPILLARY BLOOD GLUCOSE (NO CHG), POC (10/25/2019 12:20 AM PST) + +---------+ + + + [...] | [facility] | [address] | [place], [place] | | | [facility] | [address] | [address] | | | TESTS | | | | + + + + + CARDIOLOGY (10/25/2019 12:00 AM PST) + + + | Narrative | Performed At | + + + | | | + + + CARDIOLOGY (10/25/2019 12:00 AM PST) + + + | Narrative | Performed At | + + + | | | + + + CARDIOLOGY (10/25/2019 12:00 AM PST) + + + | Narrative | Performed At | + + + | | | + + + CARDIOLOGY (10/25/2019 12:00 AM PST) + + + | Narrative | Performed At | + + + | | | + + + CAPILLARY BLOOD GLUCOSE (NO CHG), POC (10/24/2019 9:20 PM PST) + +---------+ + + + | Component | Value | Ref Range | Performed | Pathologist | | | | | At | Signature | + +---------+ + + + | BLOOD | 168 (H) | 70 - 99 mg/dL | [...] | [facility] | [address] | [place], [place] | | | [facility] | [address] | [address] | | | TESTS | | | | + + + + + CAPILLARY BLOOD GLUCOSE (NO CHG), POC (10/24/2019 1:39 PM PST) + +---------+ + + + [...] + | [facility] | [address] | [place], [place] | | | [facility] | [address] | [address] | | | TESTS | | | | + + + + + CBC (HEMOGRAM) ONLY (10/24/2019 1:04 PM PST) + + + + + + | Component | Value | Ref Range | Performed | Pathologist | | | | | At | Signature | + + + + + + | WHITE CELL | 2.38 (L) | 3.50 - 10.80 | [facility] | | | COUNT | | K/cu mm | LABORATORY | | | | | | SERVICES, | | | | | | CORE | | + + + + + + | RED CELL | 3.31 (L) | 4.50 - 6.00 | [facility] [...] + + + | HEMATOCRIT | 30.1 (L) | 41.0 - 53.0 % | [facility] | | | | | | LABORATORY | | | | | | SERVICES, | | | | | | CORE | | + + + + + + | MCV | 90.9 | 80.0 - 100.0 fL | [facility] [...] + + + | RDW SD | 46.0 | 35.1 - 46.3 fL | [facility] [...] [facility] | [address] | [place] [address] | | | SERVICES, CORE | [address] | | | + + + + + BASIC METABOLIC SET (NA, K, CL, TCO2, BUN, CR, GLU, CA) (10/24/2019 1:04 PM PST) + + + + + + | Component | Value | Ref Range | Performed | Pathologist | | | | | At | Signature | + + + + + + | GLUCOSE, | 137 (H) | 70 - 99 [...] + + + | CREATININE | 2.16 (H) | 0.70 - 1.30 | [facility] | | | PLASMA | | mg/dL | LABORATORY | | | (LAB) | | | SERVICES, | | | | | | CORE | | + + + + + + | EGFR | 39 (L) | >60 mL/min | [facility] | | | - | | | LABORATORY | | | [facility] | | | SERVICES, | | | [...] + + + + | BUN/CREATIN | 20 | 8 - 25 | [facility] | [...] + + | [facility] | [address] [facility] | [place] [address] | | | SERVICES, CORE | [address] | | | + + + + + 12 LEAD ECG (10/24/2019 12:50 PM PST) + + + + + + | Component | Value | Ref Range | Performed | Pathologist | | | | | At | Signature | + + + + + + | VENTRICULAR | 124 | bpm | [facility] | | | RATE | | | OF | | | | | | CARDIOLOGY | | + + + + + + | ATRIAL RATE | 124 | ms | [facility] | | | | | | OF | | | | | | CARDIOLOGY | | + + + + + + | P-R | 452 | ms | [facility] | | | INTERVAL | | | OF | | | | | | CARDIOLOGY | | + + + + + + | P AXIS | 0 | deg | [facility] | | | | | | OF | | | | | | CARDIOLOGY | | + + + + + + | QRS | 182 | ms | [facility] | | | DURATION | | | OF | | | | | | CARDIOLOGY | | + + + + + + | QT | 390 | ms | [facility] | | | | | | OF | | | | | | CARDIOLOGY | | + + + + + + | QTC-BAZETT | 561 | ms | [facility] | | | | | | OF | | | | | | CARDIOLOGY | | + + + + + + | R AXIS | 95 | deg | [facility] | | | | | | OF | | | | | | CARDIOLOGY | | + + + + + + | T AXIS | -15 | deg | [facility] | | | | | | OF | | | | | | CARDIOLOGY | | + + + + + + | ECG | Sinus tachycardia | | [facility] | | | IMPRESSION | | | OF | | | | | | CARDIOLOGY | | + + + + + + | ECG | Prolonged TX interval | | [facility] | | [...] DEPT | | | IMPRESSION | by: ROD SORIANO | | OF | | | | 10-24-2019 16:41:12 | | CARDIOLOGY | | + + [...] DEPT OF | [id number] | [place], [place] | | | CARDIOLOGY | [address] | [address] | | + + + + + CAPILLARY BLOOD GLUCOSE (NO CHG), POC (10/24/2019 7:55 AM PST) + +---------+ + + + [...] + | SEJAL TO | [address] | [place], [place] | | | MARIA INES SCRANTON OF [facility] | [address] | [address] | | | TESTS | | | | + + + + + TACROLIMUS, WHOLE BLOOD (10/24/2019 4:40 AM PST) + + + + + + | Component | Value | Ref Range | Performed | Pathologist | | | | | At | Signature | + + + + + + | TACROLIMUS | Comment: See Scanned | | [facility] | | | ([phone]) | Report. | | REFERENCE | | | | [...] + + + | [facility] | see below | | | + + + + + CAPILLARY BLOOD GLUCOSE (NO CHG), POC (10/24/2019 1:03 AM PST) + +---------+ + + + | Component | Value | Ref Range | Performed | Pathologist | | | | | At | Signature | + +---------+ + + + | BLOOD | 129 (H) | 70 - 99 mg/dL | [facility] - | | | GLUCOSE, | | [...] + + + | SEJAL TO | [address] | [place], [place] | | | HALLEY SPANN OF [facility] | [address] | [address] | | | TESTS | | | | + + + + + CARDIOLOGY (10/24/2019 12:00 AM PST) + + + | Narrative | Performed At | + + + | | | + + + CAPILLARY BLOOD GLUCOSE (NO CHG), POC (10/23/2019 10:33 PM PST) + +---------+ + + + [...] + | [facility] | [address] | [place], [place] | | | [facility] SP[facility] | [address] | [address] | | | TESTS | | | | + + + + + CAPILLARY BLOOD GLUCOSE (NO CHG), POC (10/23/2019 9:13 PM PST) + +---------+ + + + [...] + | SEJAL TO | [address] | [place], [place] | | | [facility] SP[facility] | [address] | [address] | | | TESTS | | | | + + + + + CAPILLARY BLOOD GLUCOSE (NO CHG), POC (10/23/2019 8:27 PM PST) + +---------+ + + + [...] | [facility] | [address] | [place], [place] | | | [facility] | [address] | [address] | | | TESTS | | | | + + + + + CAPILLARY BLOOD GLUCOSE (NO CHG), POC (10/23/2019 3:11 PM PST) + +---------+ + + + [...] | [facility] | [address] | [place], [place] | | | [facility] | [address] | [address] | | | TESTS | | | | + + + + + CAPILLARY BLOOD GLUCOSE (NO CHG), POC (10/23/2019 7:26 AM PST) + +---------+ + + + | Component | Value | Ref Range | Performed | Pathologist | | | | | At | Signature | + +---------+ + + + | BLOOD | 130 (H) | 70 - 99 mg/dL | [...] | + + + + + | SEAJL TO | [address] | [place], [place] | | | [facility] | [address] | [address] | | | TESTS | | | | + + + + + TACROLIMUS, WHOLE BLOOD (10/23/2019 4:45 AM PST) + +-------+ + + + | Component | Value | Ref Range | Performed | Pathologist | | | | | At | Signature | + +-------+ + + + | TACROLIMUS | 5.6 | 5.0 - 15.0 | [facility] | [...] | Test performed by immunoassay using [employer] i2000. . | [facility] | | Samples [...] increase or decrease Tacrolimus concentrations. | | | Test performed at [facility]. | | + + + + + + + + | Performing | Address | City/State/Zipcode | Phone Number | | Organization | | | | + + + + + | [facility] | [address] | [place] [address] | | | SERVICES, SPECIAL | [address] | | | | IMM + COAG | | | | + + + + + CAPILLARY BLOOD GLUCOSE (NO CHG), POC (10/22/2019 11:48 PM PST) + +---------+ + + + [...] | [facility] | [address] | [place], [place] | | | [facility] | [facility] | [address] | | | TESTS | | | | + + + + + CAPILLARY BLOOD GLUCOSE (NO CHG), POC (10/22/2019 8:40 PM PST) + +---------+ + + + | Component | Value | Ref Range | Performed | Pathologist | | | | | At | Signature | + +---------+ + + + | BLOOD | 187 (H) | 70 - 99 mg/dL | [facility] - | | | GLUCOSE, | | [...] + | [facility] | [address] | [place], [place] | | | [facility] | [address] | [address] | | | TESTS | | | | + + + + + CAPILLARY BLOOD GLUCOSE (NO CHG), POC (10/22/2019 1:35 PM PST) + +---------+ + + + [...] [facility] | [address] | [place], [place] | | | [facility] [place] | [facility] | [address] | | | TESTS | | | | + + + + + CAPILLARY BLOOD GLUCOSE (NO CHG), POC (10/22/2019 7:14 AM PST) + +---------+ + + + | Component | Value | Ref Range | Performed | Pathologist | | | | | At | Signature | + +---------+ + + + | BLOOD | 106 (H) | 70 - 99 mg/dL | [...] | [facility] | [address] | [place], [place] | | | [facility] | [facility] | [address] | | | TESTS | | | | + + + + + CBC (HEMOGRAM) ONLY (10/22/2019 5:44 AM PST) + + + + + + | Component | Value | Ref Range | Performed | Pathologist | | | | | At | Signature | + + + + + + | WHITE CELL | 3.15 (L) | 3.50 - 10.80 | [facility] | | | COUNT | | K/cu mm | LABORATORY | | | | | | SERVICES, | | | | | | CORE | | + + + + + + | RED CELL | 3.53 (L) | 4.50 - 6.00 | [facility] | | | COUNT | | M/cu mm | LABORATORY | | | | | | SERVICES, | | | | | | CORE | | + + + + + + | HEMOGLOBIN | 10.1 (L) | 13.5 - 17.5 | [facility] | | | | | g/dL | LABORATORY | | | | | | SERVICES, | | | | | | CORE | | + + + + + + | HEMATOCRIT | 32.2 (L) | 41.0 - 53.0 % | [facility] | | | | | | LABORATORY | | | | | | SERVICES, | | | | | | CORE | | + + + + + + | MCV | 91.2 | 80.0 - 100.0 fL | [facility] [...] + + + | RDW SD | 46.1 | 35.1 - 46.3 fL | [facility] | | | | | | LABORATORY | | | | | | SERVICES, | | | | | | CORE | | + + + + + + | PLATELET | 70 (L) | 150 - 400 K/cu | [facility] | | | COUNT | | mm | LABORATORY | | | | | | SERVICES, | | | | | | CORE | | + + + + + + | MPV | 11.8 | 9.7 - 12.3 fL | [facility] [...] [facility] | [address] | [place] [address] | | | SERVICES, CORE | [address] | | | + + + + + COMPLETE METABOLIC SET (NA,K,CL,CO2,BUN,CREAT,GLUC,CA,AST,ALT,BILI TOTAL,ALK PHOS,ALB,PROT TOTAL) (10/22/2019 5:44 AM PST) + + + + + + | Component | Value | Ref Range | Performed | Pathologist | | | | | At | Signature | + + + + + + | GLUCOSE, | 124 (H) | 70 - 99 [...] + + + + | CREATININE | 2.13 (H) | 0.70 - 1.30 | [facility] | | | PLASMA | | mg/dL | LABORATORY | | | (LAB) | | | SERVICES, | | | | | | CORE | | + + + + + + | EGFR | 39 (L) | >60 mL/min | [facility] | | | - | | | LABORATORY | | | [facility] | | | SERVICES, | | | [...] + + | SODIUM, | 142 | 136 - 145 | [facility] | [...] + + | ALK PHOS | 48 (L) | 53 - 128 U/L | [...] + | ALT (SGPT) | 16 | <=60 U/L | [facility] | | [...] | + + + + + | [facility] | [address] [facility] | [place] [address] | | | ARTIS TAYLOR | [address] | | | + + + + + TACROLIMUS, WHOLE BLOOD (10/22/2019 5:44 AM PST) + +---------+ + + + | Component | Value | Ref Range | Performed | Pathologist | | | | | At | Signature | + +---------+ + + + | TACROLIMUS | 4.5 (L) | 5.0 - 15.0 | [facility] [...] | + + + | Test performed at [facility]. Test performed by immunoassay | [facility] | | using [employer] i2000. . Samples for analysis of | LABORATORY | | Tacrolimus should be collected 30 minutes to 1 hour prior to the next | SERVICES, | | dose so that the measured concentration of drug represents trough | SPECIAL IMM + | | levels. Some other factors influencing therapeutic range, dose | COAG | | administered, and result interpretation include time since | | | transplantation, the organ transplanted, co-administration of other | | | immunosuppressants and interaction with other drugs that may increase | | | or decrease Tacrolimus concentrations. | | + + + + + + + + | Performing | Address | City/State[facility] | Phone Number | | Organization | | | | + + + + + | [facility] | [address] | [place] [address] | | | SERVICES, SPECIAL | [address] | | | | IMM + COAG | | | | + + + + + PHOSPHORUS, PLASMA (10/22/2019 5:44 AM PST) + +---------+ + + + [...] + | [facility] | [address] | [place] [address] | | | SERVICES, CORE | [address] | | | + + + + + MAGNESIUM, PLASMA (10/22/2019 5:44 AM PST) + +-------+ + + + | Component | Value | Ref Range | Performed | Pathologist | | | | | At | Signature | + +-------+ + + + | MAGNESIUM,P | 1.7 | 1.6 - 2.6 mg/dL | [facility] [...] | + + + + + | [facility] | [address] | [place] [address] | | | SERVICES, ARTIS | [address] | | | + + + + + CARDIOLOGY (10/22/2019 12:00 AM PST) + + + | Narrative | Performed At | + + + | | | + + + CAPILLARY BLOOD GLUCOSE (NO CHG), POC (10/21/2019 8:40 PM PST) + +---------+ + + + [...] + | [facility] | [address] | [place], [place] | | | [facility] | [address] | [address] | | | TESTS | | | | + + + + + CAPILLARY BLOOD GLUCOSE (NO CHG), POC (10/21/2019 6:19 PM PST) + +---------+ + + + [...] [facility] | [address] | [place], [place] | | | [facility] [place] | [address] | [address] | | | TESTS | | | | + + + + + CAPILLARY BLOOD GLUCOSE (NO CHG), POC (10/21/2019 2:42 PM PST) + +---------+ + + + [...] + | [facility] | [address] | [place], [place] | | | [facility] IN[facility] | [address] | [address] | | | TESTS | | | | + + + + + CBC (HEMOGRAM) ONLY (10/21/2019 12:15 PM PST) + + + + + + | Component | Value | Ref Range | Performed | Pathologist | | | | | At | Signature | + + + + + + | WHITE CELL | 3.12 (L) | 3.50 - 10.80 | [facility] | | | COUNT | | K/cu mm | LABORATORY | | | | | | SERVICES, | | | | | | CORE | | + + + + + + | RED CELL | 3.38 (L) | 4.50 - 6.00 | [facility] | | | COUNT | | M/cu mm | LABORATORY | | | | | | SERVICES, | | | | | | CORE | | + + + + + + | HEMOGLOBIN | 9.9 (L) | 13.5 - 17.5 | [facility] | | | | | g/dL | LABORATORY | | | | | | SERVICES, | | | | | | CORE | | + + + + + + | HEMATOCRIT | 30.6 (L) | 41.0 - 53.0 % | [facility] | | | | | | LABORATORY | | | | | | SERVICES, | | | | | | CORE | | + + + + + + | MCV | 90.5 | 80.0 - 100.0 fL | [facility] [...] + + + | RDW SD | 46.5 (H) | 35.1 - 46.3 fL | [facility] | | | | | | LABORATORY | | | | | | SERVICES, | | | | | | CORE | | + + + + + + | PLATELET | 68 (L)Comment: | 150 - 400 K/cu | [...] + | [facility] | [address] | [place] [address] | | | SERVICES, CORE | [address] | | | + + + + + 12 LEAD ECG (10/21/2019 10:37 AM PST) + + + + + + | Component | Value | Ref Range | Performed | Pathologist | | | | | At | Signature | + + + + + + | VENTRICULAR | 130 | bpm | [facility] | | | RATE | | | OF | | | | | | CARDIOLOGY | | + + + + + + | ATRIAL RATE | 132 | ms | [facility] | | | | | | OF | | | | | | CARDIOLOGY | | + + + + + + | P-R | 129 | ms | [facility] | | [...] + + + + | QT | 388 | ms | [facility] | | | | | | OF | | | | | | CARDIOLOGY | | + + + + + + | QTC-BAZETT | 572 | ms | [facility] | | | | | | OF | | | | | | CARDIOLOGY | | + + + + + + | R AXIS | 109 | deg | [facility] | | | | | | OF | | | | | | CARDIOLOGY | | + + + + + + | T AXIS | -1 | deg | [facility] | | | | | | OF | | | | | | CARDIOLOGY | | + + + + + + | ECG | Sinus tachycardia | | [facility] | | | [...] DEPT | | | IMPRESSION | by: QUANG GALDAMEZ | | OF | | | | 10-21-2019 16:05:07 | | CARDIOLOGY | | + + [...] + | [facility] | [address] | [place], [place] | | | CARDIOLOGY | [facility] | [address] | | + + + + + PHOSPHORUS, PLASMA (10/21/2019 9:40 AM PST) + +-------+ + + + [...] + + | [facility] | [address] [facility] | [place] [address] | | | SERVICES, CORE | [address] | | | + + + + + MAGNESIUM, PLASMA (10/21/2019 9:40 AM PST) + +-------+ + + + [...] [facility] | [address] | [place] [address] | | | SERVICES, CORE | [address] | | | + + + + + COMPLETE METABOLIC SET (NA,K,CL,CO2,BUN,CREAT,GLUC,CA,AST,ALT,BILI TOTAL,ALK PHOS,ALB,PROT TOTAL) (10/21/2019 9:40 AM PST) + + + + + + | Component | Value | Ref Range | Performed | Pathologist | | | | | At | Signature | + + + + + + | GLUCOSE, | 187 (H) | 70 - 99 [...] + + + + | CREATININE | 1.95 (H) | 0.70 - 1.30 | [facility] | | | PLASMA | | mg/dL | LABORATORY | | | (LAB) | | | SERVICES, | | | | | | CORE | | + + + + + + | EGFR | 44 (L) | >60 mL/min | [facility] | | | - | | | LABORATORY | | | [facility] | | | SERVICES, | | | | | | CORE | | + + + + + + | EGFR NON | 36 (L) | >60 mL/min | [...] + + + + | ALBUMIN/MARITZA | 1.5 | 0.9 - 2.0 | [facility] | [...] + | [facility] | [address] [facility] | [place] [address] | | | SERVICES, CORE | [address] | | | + + + + + CAPILLARY BLOOD GLUCOSE (NO CHG), POC (10/21/2019 8:02 AM PST) + +---------+ + + + | Component | Value | Ref Range | Performed | Pathologist | | | | | At | Signature | + +---------+ + + + | BLOOD | 106 (H) | 70 - 99 mg/dL | [...] | [facility] | [address] | [place], [place] | | | [facility] | [address] | [address] | | | TESTS | | | | + + + + + TACROLIMUS, WHOLE BLOOD (10/21/2019 6:31 AM PST) + +---------+ + + + | Component | Value | Ref Range | Performed | Pathologist | | | | | At | Signature | + +---------+ + + + | TACROLIMUS | 3.8 (L) | 5.0 - 15.0 | [facility] [...] | + + + | Test performed at [facility]. Test performed by immunoassay | [facility] | | using [employer] i2000. . Samples for analysis of | LABORATORY | | Tacrolimus should be collected 30 minutes to 1 hour prior to the next | SERVICES, | | dose so that the measured concentration of drug represents trough | SPECIAL IMM + | | levels. Some other factors influencing therapeutic range, dose | COAG | | administered, and result interpretation include time since | | | transplantation, the organ transplanted, co-administration of other | | | immunosuppressants and interaction with other drugs that may increase | | | or decrease Tacrolimus concentrations. | | + + + + + + + + | Performing | Address | City/State/Zipcode | Phone Number | | Organization | | | | + + + + + | [facility] | [address] | [place] [address] | | | SERVICES, SPECIAL | [address] | | | | IMM + COAG | | | | + + + + + CAPILLARY BLOOD GLUCOSE (NO CHG), POC (10/21/2019 12:33 AM PST) + +---------+ + + + [...] | [facility] | [address] | [place], [place] | | | [facility] | [facility] | [address] | | | TESTS | | | | + + + + + CARDIOLOGY (10/21/2019 12:00 AM PST) + + + | Narrative | Performed At | + + + | | | + + + CARDIOLOGY (10/21/2019 12:00 AM PST) + + + | Narrative | Performed At | + + + | | | + + + CARDIOLOGY (10/21/2019 12:00 AM PST) + + + | Narrative | Performed At | + + + | | | + + + CAPILLARY BLOOD GLUCOSE (NO CHG), POC (10/20/2019 8:17 PM PST) + +---------+ + + + [...] + | [facility] | [address] | [place], [place] | | | [facility] | [facility] | [address] | | | TESTS | | | | + + + + + CAPILLARY BLOOD GLUCOSE (NO CHG), POC (10/20/2019 6:37 PM PST) + +-------+ + + + [...] | [facility] | [address] | [place], [place] | | | [facility] | [facility] | [address] | | | TESTS | | | | + + + + + CAPILLARY BLOOD GLUCOSE (NO CHG), POC (10/20/2019 1:39 PM PST) + +---------+ + + + | Component | Value | Ref Range | Performed | Pathologist | | | | | At | Signature | + +---------+ + + + | BLOOD | 164 (H) | 70 - 99 mg/dL | [facility] - | | | GLUCOSE, | | [...] | [facility] | [address] | [place], [place] | | | [facility] | [address] | [address] | | | TESTS | | | | + + + + + CAPILLARY BLOOD GLUCOSE (NO CHG), POC (10/20/2019 8:01 AM PST) + +---------+ + + [...] + | [facility] | [address] | [place], [place] | | | [facility] | [facility] | [address] | | | TESTS | | | | + + + + + CBC (HEMOGRAM) ONLY (10/20/2019 6:02 AM PST) + + + + + + | Component | Value | Ref Range | Performed | Pathologist | | | | | At | Signature | + + + + + + | WHITE CELL | 3.24 (L) | 3.50 - 10.80 | [facility] | | | COUNT | | K/cu mm | LABORATORY | | | | | | SERVICES, | | | | | | CORE | | + + + + + + | RED CELL | 3.33 (L) | 4.50 - 6.00 | [facility] [...] + + + + | HEMATOCRIT | 30.2 (L) | 41.0 - 53.0 % | [facility] | | | | | | LABORATORY | | | | | | SERVICES, | | | | | | CORE | | + + + + + + | MCV | 90.7 | 80.0 - 100.0 fL | [facility] [...] + + + | RDW SD | 46.5 (H) | 35.1 - 46.3 fL | [facility] | | | | | | LABORATORY | | | | | | SERVICES, | | | | | | CORE | | + + + + + + | PLATELET | 64 (L)Comment: | 150 - 400 K/cu | [...] + | [facility] | [address] | [place] [address] | | | SERVICES, CORE | [address] | | | + + + + + TACROLIMUS, WHOLE BLOOD (10/20/2019 6:02 AM PST) + +-------+ + + + | Component | Value | Ref Range | Performed | Pathologist | | | | | At | Signature | + +-------+ + + + | TACROLIMUS | 5.0 | ng/mL | [facility] | | | ([phone]) | | | LABORATORY | | | [...] | + + + | Test performed at [facility]. Test performed by immunoassay | [facility] | | using [employer] i2000. . Samples for analysis of | LABORATORY | | Tacrolimus should be collected 30 minutes to 1 hour prior to the next | SERVICES, | | dose so that the measured concentration of drug represents trough | SPECIAL IMM + | | levels. Some other factors influencing therapeutic range, dose | COAG | | administered, and result interpretation include time since | | | transplantation, the organ transplanted, co-administration of other | | | immunosuppressants and interaction with other drugs that may increase | | | or decrease Tacrolimus concentrations. | | + + + + + + + + | Performing | Address | City/State/Zipcode | Phone Number | | Organization | | | | + + + + + | [facility] | [address] | [place] [address] | | | SERVICESSPECIAL | [address] | | | | IMM + COAG | | | | + + + + + PHOSPHORUS, PLASMA (10/20/2019 6:02 AM PST) + +---------+ + + + [...] [facility] | [address] | [place] [address] | | | SERVICES, ARTIS | [address] | | | + + + + + MAGNESIUM, PLASMA (10/20/2019 6:02 AM PST) + +-------+ + + + [...] | + + + + + | [facility] | [address] | [place] [address] | | | SERVICES, CORE | [address] | | | + + + + + COMPLETE METABOLIC SET (NA,K,CL,CO2,BUN,CREAT,GLUC,CA,AST,ALT,BILI TOTAL,ALK PHOS,ALB,PROT TOTAL) (10/20/2019 6:02 AM PST) + + + + + [...] + + + + | CREATININE | 2.29 (H) | 0.70 - 1.30 | [facility] | | | PLASMA | | mg/dL | LABORATORY | | | (LAB) | | | SERVICES, | | | | | | CORE | | + + + + + + | EGFR | 36 (L) | >60 mL/min | [facility] | | | - | | | LABORATORY | | | [facility] | | | SERVICES, | | | [...] + + | CALCIUM, | 9.6 | 8.6 - 10.2 | [...] + + | ALK PHOS | 51 (L) | 53 - 128 U/L | [...] | + + + + + | [facility] | [address] | [place] [address] | | | SERVICES, CORE | [address] | | | + + + + + CAPILLARY BLOOD GLUCOSE (NO CHG), POC (10/19/2019 9:00 PM PST) + +---------+ + + + [...] | [facility] | [address] | [place], [place] | | | [facility] | [address] | [address] | | | TESTS | | | | + + + + + CAPILLARY BLOOD GLUCOSE (NO CHG), POC (10/19/2019 4:54 PM PST) + +---------+ + + + [...] + | [facility] | [address] | [place], [place] | | | [facility] | [facility] | [address] | | | TESTS | | | | + + + + + OSMOLALITY, URINE SPOT (10/19/2019 12:41 PM PST) + +-------+ + + + | Component | Value | Ref Range | Performed | Pathologist | | | | | At | Signature | + +-------+ + + + | OSMOLALITY | 300 | mOsm/kg | [facility] | | | [...] [facility] | [address] | [place] [address] | | | SERVICES, CORE | [address] | | | + + + + + CREATININE, URINE (10/19/2019 12:41 PM PST) + +--------+ + + + | Component | Value | Ref Range | Performed | Pathologist | | | | | At | Signature | + +--------+ + + + | CREATININE | 68.80 | mg/dL | [facility] | | | [...] + | [facility] | [address] | [place] [address] | | | SERVICES, CORE | [address] | | | + + + + + UREA NITROGEN, URINE (10/19/2019 12:41 PM PST) + +--------+ + + + | Component | Value | Ref Range | Performed | Pathologist | | | | | At | Signature | + +--------+ + + + | UREA NITRO | 469 | mg/dL | [facility] | | | [...] + | [facility] | [address] | [place] [address] | | | SERVICES, CORE | [address] | | | + + + + + CAPILLARY BLOOD GLUCOSE (NO CHG), POC (10/19/2019 7:56 AM PST) + +---------+ + + [...] + | [facility] | [address] | [place], [place] | | | EUGENIO SPANN | [facility] | [address] | | | TESTS | | | | + + + + + TACROLIMUS, WHOLE BLOOD (10/19/2019 6:44 AM PST) + +-------+ + + + [...] | + + + | Test performed at [facility]. Test performed by immunoassay | [facility] | | using [employer] i2000. . Samples for analysis of | LABORATORY | | Tacrolimus should be collected 30 minutes to 1 hour prior to the next | SERVICES, | | dose so that the measured concentration of drug represents trough | SPECIAL IMM + | | levels. Some other factors influencing therapeutic range, dose | COAG | | administered, and result interpretation include time since | | | transplantation, the organ transplanted, co-administration of other | | | immunosuppressants and interaction with other drugs that may increase | | | or decrease Tacrolimus concentrations. | | + + + + + + + + | Performing | Address | City/State/Zipcode | Phone Number | | Organization | | | | + + + + + | [facility] | [address] | [place] [address] | | | SERVICES, SPECIAL | [address] | | | | IMM + COAG | | | | + + + + + CBC (HEMOGRAM) ONLY (10/19/2019 6:43 AM PST) + + + + + + | Component | Value | Ref Range | Performed | Pathologist | | | | | At | Signature | + + + + + + | WHITE CELL | 3.26 (L) | 3.50 - 10.80 | [facility] | | | COUNT | | K/cu mm | LABORATORY | | | | | | SERVICES, | | | | | | CORE | | + + + + + + | RED CELL | 3.17 (L) | 4.50 - 6.00 | [facility] [...] + + + + | HEMATOCRIT | 28.2 (L) | 41.0 - 53.0 % | [facility] | | | | | | LABORATORY | | | | | | SERVICES, | | | | | | CORE | | + + + + + + | MCV | 89.0 | 80.0 - 100.0 fL | [facility] [...] + + + | RDW SD | 45.4 | 35.1 - 46.3 fL | [facility] | | | | | | LABORATORY | | | | | | SERVICES, | | | | | | CORE | | + + + + + + | PLATELET | 64 (L)Comment: | 150 - 400 K/cu | [...] [facility] | [address] | [place] [address] | | | SERVICES, CORE | [address] | | | + + + + + PHOSPHORUS, PLASMA (10/19/2019 6:43 AM PST) + +---------+ + + + [...] [facility] | [address] | [place] [address] | | | ARTIS TAYLOR | [address] | | | + + + + + MAGNESIUM, PLASMA (10/19/2019 6:43 AM PST) + +-------+ + + + [...] | + + + + + | [facility] | [address] [facility] | [place] [address] | | | SERVICES, CORE | [address] | | | + + + + + COMPLETE METABOLIC SET (NA,K,CL,CO2,BUN,CREAT,GLUC,CA,AST,ALT,BILI TOTAL,ALK PHOS,ALB,PROT TOTAL) (10/19/2019 6:43 AM PST) + + + + + [...] + + + + | CREATININE | 2.45 (H) | 0.70 - 1.30 | [facility] | | | PLASMA | | mg/dL | LABORATORY | | | (LAB) | | | SERVICES, | | | | | | CORE | | + + + + + + | EGFR | 34 (L) | >60 mL/min | [facility] | | | - | | | LABORATORY | | | [facility] | | | SERVICES, | | | [...] + + + + | AST(SGOT) | 6 | <=41 U/L | [facility] | | [...] + + + + | GLOBULIN | 2.5 | 2.3 - 3.5 gm/dL | [facility] [...] | + + + + + | [facility] | [address] | [place] [address] | | | SERVICES, CORE | [address] | | | + + + + + CAPILLARY BLOOD GLUCOSE (NO CHG), POC (10/18/2019 9:42 PM PST) + +---------+ + + + [...] | [facility] | [address] | [place], [place] | | | [facility] SP[facility] OF CARE | [address] | [address] | | | TESTS | | | | + + + + + CAPILLARY BLOOD GLUCOSE (NO CHG), POC (10/18/2019 1:40 PM PST) + +---------+ + + + | Component | Value | Ref Range | Performed | Pathologist | | | | | At | Signature | + +---------+ + + + | BLOOD | 115 (H) | 70 - 99 [...] + | [facility] | [address] | [place], [place] | | | [facility] | [address] | [address] | | | TESTS | | | | + + + + + CAPILLARY BLOOD GLUCOSE (NO CHG), POC (10/18/2019 7:44 AM PST) + +---------+ + + + [...] + | [facility] | [address] | [place], [place] | | | [facility] | [address] | [address] | | | TESTS | | | | + + + + + CBC (HEMOGRAM) ONLY (10/18/2019 5:17 AM PST) + + + + + + | Component | Value | Ref Range | Performed | Pathologist | | | | | At | Signature | + + + + + + | WHITE CELL | 4.40 | 3.50 - 10.80 | [facility] | | | COUNT | | K/cu mm | LABORATORY | | | | | | SERVICES, | | | | | | CORE | | + + + + + + | RED CELL | 3.78 (L) | 4.50 - 6.00 | [facility] | | | COUNT | | M/cu mm | LABORATORY | | | | | | SERVICES, | | | | | | CORE | | + + + + + + | HEMOGLOBIN | 10.8 (L) | 13.5 - 17.5 | [facility] [...] + + + + | MCV | 91.3 | 80.0 - 100.0 fL | [facility] [...] + + + | RDW SD | 46.8 (H) | 35.1 - 46.3 fL | [facility] | | | | | | LABORATORY | | | | | | SERVICES, | | | | | | CORE | | + + + + + + | PLATELET | 81 (L)Comment: | 150 - 400 K/cu | [facility] | | | COUNT | Macroplatelets present. | mm | LABORATORY | | | | | | SERVICES, | | | | | | CORE | | + + + + + + | MPV | 12.2 | 9.7 - 12.3 fL | [facility] [...] + + + + + | [facility] | [address] | [place] [address] | | | SERVICES, CORE | [address] | | | + + + + + TACROLIMUS, WHOLE BLOOD (10/18/2019 5:17 AM PST) + +-------+ + + + | Component | Value | Ref Range | Performed | Pathologist | | | | | At | Signature | + +-------+ + + + | TACROLIMUS | 9.6 | 5.0 - 15.0 | [facility] | [...] | Test performed by immunoassay using [employer] i2000. . | [facility] | | Samples [...] + + | Performing | Address | City/State[facility] | Phone Number | | Organization | | | | + + + + + | [facility] | [address] | [place] [address] | | | SPECIAL [facility] | [address] | | | | IMM + COAG | | | | + + + + + PHOSPHORUS, PLASMA (10/18/2019 5:17 AM PST) + +---------+ + + + [...] + | [facility] | [address] | [place] [address] | | | CLAUDIA, ARTIS | [address] | | | + + + + + MAGNESIUM, PLASMA (10/18/2019 5:17 AM PST) + +-------+ + + + | Component | Value | Ref Range | Performed | Pathologist | | | | | At | Signature | + +-------+ + + + | MAGNESIUM,P | 2.1 | 1.6 - 2.6 mg/dL | [facility] | | | JOSE | | | [...] + + + | [facility] | [address] | [place] [address] | | | SERVICES, CORE | [address] | | | + + + + + COMPLETE METABOLIC SET (NA,K,CL,CO2,BUN,CREAT,GLUC,CA,AST,ALT,BILI TOTAL,ALK PHOS,ALB,PROT TOTAL) (10/18/2019 5:17 AM PST) + + + + + [...] + + + | CREATININE | 2.28 (H) | 0.70 - 1.30 | [facility] | | | PLASMA | | mg/dL | LABORATORY | | | (LAB) | | | SERVICES, | | | | | | CORE | | + + + + + + | EGFR | 36 (L) | >60 mL/min | [facility] | | | - | | | LABORATORY | | | [facility] | | | SERVICES, | | | [...] + + + | ALK PHOS | 54 | 53 - 128 U/L | [facility] [...] + + + + | BUN/CREATIN | 20 | 8 - 25 | [facility] | [...] + | [facility] | [address] | [place] [address] | | | SERVICES, CORE | [address] | | | + + + + + CAPILLARY BLOOD GLUCOSE (NO CHG), POC (10/17/2019 9:15 PM PST) + +-------+ + + + | Component | Value | Ref Range | Performed | Pathologist | | | | | At | Signature | + +-------+ + + + | BLOOD | 96 | 70 - 99 mg/dL | [facility] - | | | GLUCOSE, | | | [facility] | | | POC | | | [...] | [facility] | [address] | [place], [place] | | | [facility] | [facility] | [address] | | | TESTS | | | | + + + + + CAPILLARY BLOOD GLUCOSE (NO CHG), POC (10/17/2019 4:53 PM PST) + +---------+ + + + [...] | [facility] | [address] | [place], [place] | | | [facility] | [facility] | [address] | | | TESTS | | | | + + + + + CAPILLARY BLOOD GLUCOSE (NO CHG), POC (10/17/2019 3:53 PM PST) + +---------+ + + + | Component | Value | Ref Range | Performed | Pathologist | | | | | At | Signature | + +---------+ + + + | BLOOD | 129 (H) | 70 - 99 mg/dL | [facility] - | | | GLUCOSE, | | [...] + | [facility] | [address] | [place], [place] | | | [facility] INES POINT OF CARE | [address] | [address] | | | TESTS | | | | + + + + + CAPILLARY BLOOD GLUCOSE (NO CHG), POC (10/17/2019 9:55 AM PST) + +---------+ + + + [...] [facility] | [address] | [place], [place] | | | [facility] | [facility] | [address] | | | TESTS | | | | + + + + + TACROLIMUS, WHOLE BLOOD (10/17/2019 4:46 AM PST) + +-------+ + + + | Component | Value | Ref Range | Performed | Pathologist | | | | | At | Signature | + +-------+ + + + | TACROLIMUS | 8.4 | 5.0 - 15.0 | [facility] | [...] | Test performed by immunoassay using [employer] i2000. . | [facility] | | Samples [...] + + | Performing | Address | City/State[facility] | Phone Number | | Organization | | | | + + + + + | [facility] | [address] | [place] [address] | | | SPECIAL CLAUDIA | [address] | | | | IMM + COAG | | | | + + + + + PHOSPHORUS, PLASMA (10/17/2019 4:46 AM PST) + +---------+ + + + [...] + | [facility] | [address] | [place] [address] | | | SERVICES, CORE | [address] | | | + + + + + MAGNESIUM, PLASMA (10/17/2019 4:46 AM PST) + +-------+ + + + [...] | + + + + + | [facility] | [address] [facility] | [place] [address] | | | CLAUDIA, ARTIS | [address] | | | + + + + + COMPLETE METABOLIC SET (NA,K,CL,CO2,BUN,CREAT,GLUC,CA,AST,ALT,BILI TOTAL,ALK PHOS,ALB,PROT TOTAL) (10/17/2019 4:46 AM PST) + + + + + [...] + + + | CREATININE | 2.05 (H) | 0.70 - 1.30 | [facility] | | | PLASMA | | mg/dL | LABORATORY | | | (LAB) | | | SERVICES, | | | | | | CORE | | + + + + + + | EGFR | 41 (L) | >60 mL/min | [facility] | | | - | | | LABORATORY | | | [facility] | | | SERVICES, | | | [...] + + | CALCIUM, | 9.6 | 8.6 - 10.2 | [...] + | ALT (SGPT) | 21 | <=60 U/L | [facility] | | [...] + + + + | BUN/CREATIN | 21 | 8 - 25 | [facility] | | | INE [facility] | | | LABORATORY | | | | | | SERVICES, | | | | | | CORE | | + + + + + + | GLOBULIN | 2.9 | 2.3 - 3.5 gm/dL | [facility] [...] | + + + + + | [facility] | [address] | [place] [address] | | | SERVICES, CORE | [address] | | | + + + + + CBC (HEMOGRAM) ONLY (10/17/2019 4:45 AM PST) + + + + + + | Component | Value | Ref Range | Performed | Pathologist | | | | | At | Signature | + + + + + + | WHITE CELL | 3.98 | 3.50 - 10.80 | [facility] | | | COUNT | | K/cu mm | LABORATORY | | | | | | SERVICES, | | | | | | CORE | | + + + + + + | RED CELL | 3.78 (L) | 4.50 - 6.00 | [facility] | | | COUNT | | M/cu mm | LABORATORY | | | | | | SERVICES, | | | | | | CORE | | + + + + + + | HEMOGLOBIN | 10.8 (L) | 13.5 - 17.5 | [facility] | | | | | g/dL | LABORATORY | | | | | | SERVICES, | | | | | | CORE | | + + + + + + | HEMATOCRIT | 34.3 (L) | 41.0 - 53.0 % | [facility] | | | | | | LABORATORY | | | | | | SERVICES, | | | | | | CORE | | + + + + + + | MCV | 90.7 | 80.0 - 100.0 fL | [facility] | | | | | | LABORATORY | | | | | | SERVICES, | | | | | | CORE | | + + + + + + | MCHC | 31.5 (L) | 32.0 - 36.0 | [facility] | | | | | g/dL | LABORATORY | | | | | | SERVICES, | | | | | | CORE | | + + + + + + | RDW SD | 46.0 | 35.1 - 46.3 fL | [facility] [...] + | [facility] | [address] | [place] [address] | | | SERVICES, CORE | [address] | | | + + + + + CAPILLARY BLOOD GLUCOSE (NO CHG), POC (10/16/2019 10:57 PM PST) + +---------+ + + + | Component | Value | Ref Range | Performed | Pathologist | | | | | At | Signature | + +---------+ + + + | BLOOD | 200 (H) | 70 - 99 mg/dL | [facility] - | | | GLUCOSE, | | [...] + | [facility] | [address] | [place], [place] | | | HAL[facility] SPANN OF CARE | [address] | [address] | | | TESTS | | | | + + + + + CAPILLARY BLOOD GLUCOSE (NO CHG), POC (10/16/2019 8:21 PM PST) + +---------+ + + + [...] | [facility] | [address] | [place], [place] | | | HAL[facility] SPANN [facility] CARE | [address] | [address] | | | TESTS | | | | + + + + + CAPILLARY BLOOD GLUCOSE (NO CHG), POC (10/16/2019 2:54 PM PST) + +---------+ + + + [...] | [facility] | [address] | [place], [place] | | | HAL[facility] SPANN [facility] CARE | [address] | [address] | | | TESTS | | | | + + + + + CAPILLARY BLOOD GLUCOSE (NO CHG), POC (10/16/2019 8:05 AM PST) + +---------+ + + + [...] + | [facility] | [address] | [place], [place] | | | [facility] IN[facility] POINT OF CARE | [address] | [address] | | | TESTS | | | | + + + + + CBC (HEMOGRAM) ONLY (10/16/2019 5:59 AM PST) + + + + + + | Component | Value | Ref Range | Performed | Pathologist | | | | | At | Signature | + + + + + + | WHITE CELL | 3.78 | 3.50 - 10.80 | [facility] | | | COUNT | | K/cu mm | LABORATORY | | | | | | SERVICES, | | | | | | CORE | | + + + + + + | RED CELL | 3.31 (L) | 4.50 - 6.00 | [facility] [...] + + + + | HEMATOCRIT | 30.2 (L) | 41.0 - 53.0 % | [facility] | | | | | | LABORATORY | | | | | | SERVICES, | | | | | | CORE | | + + + + + + | MCV | 91.2 | 80.0 - 100.0 fL | [facility] [...] + + + | RDW SD | 47.1 (H) | 35.1 - 46.3 fL | [facility] | | | | | | LABORATORY | | | | | | SERVICES, | | | | | | CORE | | + + + + + + | PLATELET | 65 (L) | 150 - 400 K/cu | [...] [facility] | [address] | [place] [address] | | | SERVICES, CORE | [address] | | | + + + + + TACROLIMUS, WHOLE BLOOD (10/16/2019 5:59 AM PST) + +-------+ + + + [...] | Test performed by immunoassay using [employer] i2000. . | [facility] | | Samples [...] + | [facility] | [address] [facility] | [place] [address] | | | SERVICES, SPECIAL | [address] | | | | IMM + COAG | | | | + + + + + PHOSPHORUS, PLASMA (10/16/2019 5:59 AM PST) + +---------+ + + + [...] + | [facility] | [address] | [place] [address] | | | SERVICES, CORE | [address] | | | + + + + + MAGNESIUM, PLASMA (10/16/2019 5:59 AM PST) + +---------+ + + + | Component | Value | Ref Range | Performed | Pathologist | | | | | At | Signature | + +---------+ + + + | MAGNESIUM,P | 1.3 (L) | 1.6 - 2.6 mg/dL | [...] [facility] | [address] | [place] [address] | | | SERVICES, CORE | [address] | | | + + + + + COMPLETE METABOLIC SET (NA,K,CL,CO2,BUN,CREAT,GLUC,CA,AST,ALT,BILI TOTAL,ALK PHOS,ALB,PROT TOTAL) (10/16/2019 5:59 AM PST) + + + + + + | Component | Value | Ref Range | Performed | Pathologist | | | | | At | Signature | + + + + + + | GLUCOSE, | 113 (H) | 70 - 99 mg/dL | [...] + + + + | CREATININE | 1.97 (H) | 0.70 - 1.30 | [facility] | | | PLASMA | | mg/dL | LABORATORY | | | (LAB) | | | SERVICES, | | | | | | CORE | | + + + + + + | EGFR | 43 (L) | >60 mL/min | [facility] | | | - | | | LABORATORY | | | [facility] | | | SERVICES, | | | | | | CORE | | + + + + + + | EGFR NON | 36 (L) | >60 mL/min | [...] + + + + | CALCIUM(ALB | 9.5 [...] + + | AST(SGOT) | 17 | <=41 U/L | [facility] | | [...] + + + + | GLOBULIN | 2.5 | 2.3 - 3.5 gm/dL | [facility] [...] + | [facility] | [address] [facility] | [place] [address] | | | SERVICES, CORE | [address] | | | + + + + + CAPILLARY BLOOD GLUCOSE (NO CHG), POC (10/15/2019 9:59 PM PST) + +---------+ + + + [...] | [facility] | [address] | [place], [place] | | | [facility] SP[facility] [place] | [facility] | [address] | | | TESTS | | | | + + + + + CAPILLARY BLOOD GLUCOSE (NO CHG), POC (10/15/2019 8:25 PM PST) + +---------+ + + + [...] + | [facility] | [address] | [place], [place] | | | HAL[facility] SPANN [facility] CARE | [address] | [address] | | | TESTS | | | | + + + + + CAPILLARY BLOOD GLUCOSE (NO CHG), POC (10/15/2019 2:06 PM PST) + +---------+ + + + [...] | [facility] | [address] | [place], [place] | | | HILL, POINT OF CARE | [address] | [address] | | | TESTS | | | | + + + + + CAPILLARY BLOOD GLUCOSE (NO CHG), POC (10/15/2019 10:39 AM PST) + +---------+ + + + | Component | Value | Ref Range | Performed | Pathologist | | | | | At | Signature | + +---------+ + + + | BLOOD | 104 (H) | 70 - 99 mg/dL | [facility] - | | | GLUCOSE, | | [...] | [facility] | [address] | [place], [place] | | | [facility] SP[facility] [place] | [address] | [address] | | | TESTS | | | | + + + + + CAPILLARY BLOOD GLUCOSE (NO CHG), POC (10/15/2019 6:15 AM PST) + +---------+ + + + [...] + | [facility] | [address] | [place], [place] | | | MARIA INES POINT OF CARE | [address] | [address] | | | TESTS | | | | + + + + + CBC (HEMOGRAM) ONLY (10/15/2019 5:16 AM PST) + + + + + + | Component | Value | Ref Range | Performed | Pathologist | | | | | At | Signature | + + + + + + | WHITE CELL | 3.66 | 3.50 - 10.80 | [facility] | | | COUNT | | K/cu mm | LABORATORY | | | | | | SERVICES, | | | | | | CORE | | + + + + + + | RED CELL | 3.22 (L) | 4.50 - 6.00 | [facility] [...] + + + + | HEMATOCRIT | 29.6 (L) | 41.0 - 53.0 % | [...] + + + | RDW SD | 47.7 (H) | 35.1 - 46.3 fL | [facility] | | | | | | LABORATORY | | | | | | SERVICES, | | | | | | CORE | | + + + + + + | PLATELET | 70 (L) | 150 - 400 K/cu | [...] + | [facility] | [address] | [place] [address] | | | SERVICES, CORE | [address] | | | + + + + + TACROLIMUS, WHOLE BLOOD (10/15/2019 5:16 AM PST) + +---------+ + + + | Component | Value | Ref Range | Performed | Pathologist | | | | | At | Signature | + +---------+ + + + | TACROLIMUS | 4.0 (L) | 5.0 - 15.0 | [facility] [...] | Test performed by immunoassay using [employer] i2000. . | [facility] | | Samples [...] | + + + + + | [facility] | [address] | [place] [address] | | | SERVICES, SPECIAL | [address] | | | | IMM + COAG | | | | + + + + + PHOSPHORUS, PLASMA (10/15/2019 5:16 AM PST) + +-------+ + + + [...] [facility] | [address] | [place] [address] | | | SERVICES, CORE | [address] | | | + + + + + MAGNESIUM, PLASMA (10/15/2019 5:16 AM PST) + +---------+ + + + [...] + + | [facility] | [address] | [place] [address] | | | SERVICES, CORE | [address] | | | + + + + + COMPLETE METABOLIC SET (NA,K,CL,CO2,BUN,CREAT,GLUC,CA,AST,ALT,BILI TOTAL,ALK PHOS,ALB,PROT TOTAL) (10/15/2019 5:16 AM PST) + + + + + + | Component | Value | Ref Range | Performed | Pathologist | | | | | At | Signature | + + + + + + | GLUCOSE, | 196 (H) | 70 - 99 [...] + + + | CREATININE | 2.06 (H) | 0.70 - 1.30 | [facility] | | | PLASMA | | mg/dL | LABORATORY | | | (LAB) | | | SERVICES, | | | | | | CORE | | + + + + + + | EGFR | 41 (L) | >60 mL/min | [facility] | | | - | | | LABORATORY | | | [facility] | | | SERVICES, | | | [...] + + + + | CALCIUM(ALB | 9.5 [...] + + + + | GLOBULIN | 2.5 | 2.3 - 3.5 gm/dL | [facility] [...] + | [facility] | [address] | [place] [address] | | | SERVICES, CORE | [address] | | | + + + + + CAPILLARY BLOOD GLUCOSE (NO CHG), POC (10/14/2019 11:59 PM PST) + +---------+ + + + | Component | Value | Ref Range | Performed | Pathologist | | | | | At | Signature | + +---------+ + + + | BLOOD | 172 (H) | 70 - 99 mg/dL | [facility] - | | | GLUCOSE, | | [...] + | [facility] | [address] | [place], [place] | | | [facility] IN[facility] POINT OF CARE | [address] | [address] | | | TESTS | | | | + + + + + CAPILLARY BLOOD GLUCOSE (NO CHG), POC (10/14/2019 8:48 PM PST) + +---------+ + + + [...] | [facility] | [address] | [place], [place] | | | HAL[facility] SPANN [facility] CARE | [address] | [address] | | | TESTS | | | | + + + + + CAPILLARY BLOOD GLUCOSE (NO CHG), POC (10/14/2019 1:17 PM PST) + +---------+ + + + | Component | Value | Ref Range | Performed | Pathologist | | | | | At | Signature | + +---------+ + + + | BLOOD | 116 (H) | 70 - 99 [...] [facility] | [address] | [place], [place] | | | MAR[facility] INES POINT OF CARE | [address] | [address] | | | TESTS | | | | + + + + + CAPILLARY BLOOD GLUCOSE (NO CHG), POC (10/14/2019 7:43 AM PST) + +---------+ + + + | Component | Value | Ref Range | Performed | Pathologist | | | | | At | Signature | + +---------+ + + + | BLOOD | 128 (H) | 70 - 99 mg/dL | [facility] - | | | GLUCOSE, | | [...] + | [facility] | [address] | [place], [place] | | | HALLEY SPANN OF CARE | [address] | [address] | | | TESTS | | | | + + + + + CAPILLARY BLOOD GLUCOSE (NO CHG), POC (10/14/2019 6:22 AM PST) + +---------+ + + + | Component | Value | Ref Range | Performed | Pathologist | | | | | At | Signature | + +---------+ + + + | BLOOD | 119 (H) | 70 - 99 mg/dL | [...] | [facility] | [address] | [place], [place] | | | [facility] [place] | [address] | [address] | | | TESTS | | | | + + + + + CBC (HEMOGRAM) ONLY (10/14/2019 4:51 AM PST) + + + + + + | Component | Value | Ref Range | Performed | Pathologist | | | | | At | Signature | + + + + + + | WHITE CELL | 3.50 | 3.50 - 10.80 | [facility] | | | COUNT | | K/cu mm | LABORATORY | | | | | | SERVICES, | | | | | | CORE | | + + + + + + | RED CELL | 3.19 (L) | 4.50 - 6.00 | [facility] [...] + + + + | HEMATOCRIT | 29.0 (L) | 41.0 - 53.0 % | [facility] | | | | | | LABORATORY | | | | | | SERVICES, | | | | | | CORE | | + + + + + + | MCV | 90.9 | 80.0 - 100.0 fL | [facility] | | | | | | LABORATORY | | | | | | SERVICES, | | | | | | CORE | | + + + + + + | MCHC | 32.1 | 32.0 - 36.0 | [facility] | | | | | g/dL | LABORATORY | | | | | | SERVICES, | | | | | | CORE | | + + + + + + | RDW SD | 47.5 (H) | 35.1 - 46.3 fL | [facility] | | | | | | LABORATORY | | | | | | SERVICES, | | | | | | CORE | | + + + + + + | PLATELET | 71 (L)Comment: | 150 - 400 K/cu | [...] [facility] | [address] | [place] [address] | | | SERVICES, CORE | [address] | | | + + + + + TACROLIMUS, WHOLE BLOOD (10/14/2019 4:51 AM PST) + +---------+ + + + [...] | Test performed by immunoassay using [employer] i2000. . | [facility] | | Samples [...] [facility] | [address] | [place] [address] | | | SERVICES, SPECIAL | [address] | | | | IMM + COAG | | | | + + + + + PHOSPHORUS, PLASMA (10/14/2019 4:51 AM PST) + +-------+ + + + [...] | + + + + + | [facility] | [address] | [place] [address] | | | SERVICES, CORE | [address] | | | + + + + + MAGNESIUM, PLASMA (10/14/2019 4:51 AM PST) + +---------+ + + + | Component | Value | Ref Range | Performed | Pathologist | | | | | At | Signature | + +---------+ + + + | MAGNESIUM,P | 1.5 (L) | 1.6 - 2.6 mg/dL | [facility] [...] + | [facility] | [address] | [place] [address] | | | SERVICES, CORE | [address] | | | + + + + + COMPLETE METABOLIC SET (NA,K,CL,CO2,BUN,CREAT,GLUC,CA,AST,ALT,BILI TOTAL,ALK PHOS,ALB,PROT TOTAL) (10/14/2019 4:51 AM PST) + + + + + + | Component | Value | Ref Range | Performed | Pathologist | | | | | At | Signature | + + + + + + | GLUCOSE, | 107 (H) | 70 - 99 mg/dL | [facility] | | | PLASMA | | | LABORATORY | | | (LAB) | | | SERVICES, | | | | | | CORE | | + + + + + + | BUN, PLASMA | 49 (H) | 6 - 20 mg/dL | [facility] | | | (LAB) | | | LABORATORY | | | | | | SERVICES, | | | | | | CORE | | + + + + + + | CREATININE | 2.12 (H) | 0.70 - 1.30 | [facility] | | | PLASMA | | mg/dL | LABORATORY | | | (LAB) | | | SERVICES, | | | | | | CORE | | + + + + + + | EGFR | 40 (L) | >60 mL/min | [facility] | | | - | | | LABORATORY | | | [facility] | | | SERVICES, | | | [...] + + + | ALK PHOS | 54 | 53 - 128 U/L | [facility] [...] + + + + | BUN/CREATIN | 23 | 8 - 25 | [facility] | | | INE RATIO | | | LABORATORY | | | | | | SERVICES, | | | | | | CORE | | + + + + + + | GLOBULIN | 2.4 | 2.3 - 3.5 gm/dL | [facility] | | | LVL | | | LABORATORY | | | | | | SERVICES, | | | | | | CORE | | + + + + + + | ALBUMIN/MARITZA | 1.5 | 0.9 - 2.0 | [facility] | [...] | + + + + + | [facility] | [address] [facility] | [place] [address] | | | SERVICES, ARTIS | [address] | | | + + + + + CAPILLARY BLOOD GLUCOSE (NO CHG), POC (10/13/2019 11:16 PM PST) + +---------+ + + + [...] | [facility] | [address] | [place], [place] | | | HAL[facility] SPANN OF CARE | [facility] | [address] | | | TESTS | | | | + + + + + CAPILLARY BLOOD GLUCOSE (NO CHG), POC (10/13/2019 10:12 PM PST) + +---------+ + + + [...] | [facility] | [address] | [place], [place] | | | [facility] | [address] | [address] | | | TESTS | | | | + + + + + CAPILLARY BLOOD GLUCOSE (NO CHG), POC (10/13/2019 6:33 PM PST) + +---------+ + + + [...] + | [facility] | [address] | [place], [place] | | | MAR[facility] INES POINT OF CARE | [address] | [address] | | | TESTS | | | | + + + + + CAPILLARY BLOOD GLUCOSE (NO CHG), POC (10/13/2019 1:36 PM PST) + +-------+ + + + | Component | Value | Ref Range | Performed | Pathologist | | | | | At | Signature | + +-------+ + + + | BLOOD | 85 | 70 - 99 mg/dL | [facility] [...] | [facility] | [address] | [place], [place] | | | HILL, POINT OF CARE | [address] | [address] | | | TESTS | | | | + + + + + LDH TOTAL, PLASMA (10/13/2019 10:22 AM PST) + +---------+ + + + | Component | Value | Ref Range | Performed | Pathologist | | | | | At | Signature | + +---------+ + + + | LD TOTAL, | 146 | <=250 U/L | [facility] | | [...] | + + + + + | [facility] | [address] | [place] [address] | | | SERVICES, CORE | [address] | | | + + + + + VITAMIN B-12 (10/13/2019 10:22 AM PST) + +-------+ + + + | Component | Value | Ref Range | Performed | Pathologist | | | | | At | Signature | + +-------+ + + + | VITAMIN B12 | 880 | 193 - 986 pg/mL | [facility] [...] [facility] | [address] | [place] [address] | | | SERVICES, CORE | [address] | | | + + + + + TSH (10/13/2019 10:22 AM PST) + +-------+ + + + | Component | Value | Ref Range | Performed | Pathologist | | | | | At | Signature | + +-------+ + + + | TSH | 1.72 | 0.50 - 5.07 | [facility] | [...] + | [facility] | [address] | [place] [address] | | | ARTIS TAYLOR | [address] | | | + + + + + PREALBUMIN (10/13/2019 10:22 AM PST) + +-------+ + + + | Component | Value | Ref Range | Performed | Pathologist | | | | | At | Signature | + +-------+ + + + | PREALBUMIN | 23.0 | 17.0 - 42.0 | [facility] | | | | | mg/dL [...] | + + + + + | [facility] | [address] | [place] [address] | | | [place] | | | | + + + + + CAPILLARY BLOOD GLUCOSE (NO CHG), POC (10/13/2019 9:59 AM PST) + +---------+ + + + | Component | Value | Ref Range | Performed | Pathologist | | | | | At | Signature | + +---------+ + + + | BLOOD | 135 (H) | 70 - 99 mg/dL | [facility] - | | | GLUCOSE, | | [...] + | [facility] | [address] | [place], [place] | | | [facility] IN[facility] POINT OF CARE | [address] | [address] | | | TESTS | | | | + + + + + CAPILLARY BLOOD GLUCOSE (NO CHG), POC (10/13/2019 6:28 AM PST) + +---------+ + + + [...] [facility] | [address] | [place], [place] | | | EUGENIO SPANN | [facility] | [address] | | | TESTS | | | | + + + + + CBC (HEMOGRAM) ONLY (10/13/2019 5:13 AM PST) + + + + + + | Component | Value | Ref Range | Performed | Pathologist | | | | | At | Signature | + + + + + + | WHITE CELL | 3.97 | 3.50 - 10.80 | [facility] | | | COUNT | | K/cu mm | LABORATORY | | | | | | SERVICES, | | | | | | CORE | | + + + + + + | RED CELL | 3.36 (L) | 4.50 - 6.00 | [facility] [...] + + + + | MCV | 89.3 | 80.0 - 100.0 fL | [facility] [...] + + + | PLATELET | 85 (L) | 150 - 400 K/cu | [...] | + + + + + | [facility] | [address] | [place] [address] | | | SERVICES, CORE | [address] | | | + + + + + TACROLIMUS, WHOLE BLOOD (10/13/2019 5:13 AM PST) + +-------+ + + + [...] | Test performed by immunoassay using [employer] i2000. . | [facility] | | Samples [...] | + + + + + | [facility] | [address] | [place] [address] | | | SERVICES, SPECIAL | [address] | | | | IMM + COAG | | | | + + + + + PHOSPHORUS, PLASMA (10/13/2019 5:13 AM PST) + +---------+ + + + [...] [facility] | [address] | [place] [address] | | | SERVICES, CORE | [address] | | | + + + + + MAGNESIUM, PLASMA (10/13/2019 5:13 AM PST) + +-------+ + + + [...] [facility] | [address] | [place] [address] | | | SERVICES, CORE | [address] | | | + + + + + COMPLETE METABOLIC SET (NA,K,CL,CO2,BUN,CREAT,GLUC,CA,AST,ALT,BILI TOTAL,ALK PHOS,ALB,PROT TOTAL) (10/13/2019 5:13 AM PST) + + + + + + | Component | Value | Ref Range | Performed | Pathologist | | | | | At | Signature | + + + + + + | GLUCOSE, | 194 (H) | 70 - 99 [...] + + + + | CREATININE | 1.95 (H) | 0.70 - 1.30 | [facility] | | | PLASMA | | mg/dL | LABORATORY | | | (LAB) | | | SERVICES, | | | | | | CORE | | + + + + + + | EGFR | 44 (L) | >60 mL/min | [facility] | | | - | | | LABORATORY | | | [facility] | | | SERVICES, | | | | | | CORE | | + + + + + + | EGFR NON | 36 (L) | >60 mL/min | [...] + + + | ALT (SGPT) | 15 | <=60 U/L | [facility] | | [...] + + + + | BUN/CREATIN | 27 (H) | 8 - 25 | [facility] | [...] + | [facility] | [address] | [place] [address] | | | SERVICES, CORE | [address] | | | + + + + + CAPILLARY BLOOD GLUCOSE (NO CHG), POC (10/13/2019 12:49 AM PST) + +---------+ + + + | Component | Value | Ref Range | Performed | Pathologist | | | | | At | Signature | + +---------+ + + + | BLOOD | 119 (H) | 70 - 99 mg/dL | [facility] - | | | GLUCOSE, | | [...] + | [facility] | [address] | [place], [place] | | | [facility] | [address] | [address] | | | TESTS | | | | + + + + + CAPILLARY BLOOD GLUCOSE (NO CHG), POC (10/12/2019 11:20 PM PST) + +-------+ + + + [...] | [facility] | [address] | [place], [place] | | | [facility] | [address] | [address] | | | TESTS | | | | + + + + + CAPILLARY BLOOD GLUCOSE (NO CHG), POC (10/12/2019 10:39 PM PST) + +--------+ + + + | Component | Value | Ref Range | Performed | Pathologist | | | | | At | Signature | + +--------+ + + + | BLOOD | 68 (L) | 70 - 99 mg/dL | [...] | [facility] | [address] | [place], [place] | | | [facility] | [address] | [address] | | | TESTS | | | | + + + + + POTASSIUM, PLASMA (10/12/2019 9:05 PM PST) + +---------+ + + + | Component | Value | Ref Range | Performed | Pathologist | | | | | At | Signature | + +---------+ + + + | POTASSIUM, | 5.4 [...] + + + + + | [facility] | [address] | [place] [address] | | | SERVICES, ARTIS | [address] | | | + + + + + CAPILLARY BLOOD GLUCOSE (NO CHG), POC (10/12/2019 7:56 PM PST) + +---------+ + + + [...] | [facility] | [address] | [place], [place] | | | [facility] OF CARE | [facility] | [address] | | | TESTS | | | | + + + + + CAPILLARY BLOOD GLUCOSE (NO CHG), POC (10/12/2019 5:59 PM PST) + +---------+ + + + | Component | Value | Ref Range | Performed | Pathologist | | | | | At | Signature | + +---------+ + + + | BLOOD | 217 (H) | 70 - 99 mg/dL | [facility] - | | | GLUCOSE, | | [...] | [facility] | [address] | [place], [place] | | | [facility] OF CARE | [address] | [address] | | | TESTS | | | | + + + + + POTASSIUM, PLASMA (10/12/2019 5:30 PM PST) + +---------+ + + + | Component | Value | Ref Range | Performed | Pathologist | | | | | At | Signature | + +---------+ + + + | POTASSIUM, | 5.6 (H) | 3.4 - 5.0 | [facility] [...] [facility] | [address] | [place] [address] | | | SERVICES, CORE | [address] | | | + + + + + 12 LEAD ECG (10/12/2019 5:26 PM PST) + + + + + [...] + + + + | P-R | 186 | ms | [facility] | | | INTERVAL | | | OF | | | | | | CARDIOLOGY | | + + + + + + | P AXIS | 36 | deg | [facility] | | | | | | OF | | | | | | CARDIOLOGY | | + + + + + + | QRS | 172 | ms | [facility] | | | DURATION | | | OF | | | | | | CARDIOLOGY | | + + + + + + | QT | 449 | ms | [facility] | | | | | | OF | | | | | | CARDIOLOGY | | + + + + + + | FRANCE-BELLA | 473 | ms | [facility] | | | | | | OF | | | | | | CARDIOLOGY | | + + + + + + | R AXIS | 73 | deg | [facility] | | | | | | OF | | | | | | CARDIOLOGY | | + + + + + + | T AXIS | 36 | deg | [facility] | | [...] + + + + | ECG | Lateral wall also | | [facility] | | | IMPRESSION | involved- ABNORMAL ECG - | | OF | | | | | | CARDIOLOGY | | + + + + + + | ECG | Electronically signed | | [facility] | | | IMPRESSION | by: ROD SORIANO | | OF | | | | 10-12-2019 20:56:49 | | CARDIOLOGY | | + + [...] DEPT OF | [address] | [place], [place] | | | CARDIOLOGY | [address] | [phone] | | + + + + + CAPILLARY BLOOD GLUCOSE (NO CHG), POC (10/12/2019 5:15 PM PST) + +---------+ + + + | Component | Value | Ref Range | Performed | Pathologist | | | | | At | Signature | + +---------+ + + + | BLOOD | 275 (H) | 70 - 99 [...] | [facility] | [address] | [place], [place] | | | [facility] | [address] | [phone] | | | TESTS | | | | + + + + + CREATININE, URINE (10/12/2019 4:27 PM PST) + +--------+ + + + | Component | Value | Ref Range | Performed | Pathologist | | | | | At | Signature | + +--------+ + + + | CREATININE | 46.10 | mg/dL | [facility] | | | [...] [facility] | [address] | [place] [address] | | | SERVICES, CORE | [address] | | | + + + + + SODIUM TOTAL, URINE (10/12/2019 4:27 PM PST) + +--------+ + + + | Component | Value | Ref Range | Performed | Pathologist | | | | | At | Signature | + +--------+ + + + | SODIUM CONC | 65 | mmol/L | [facility] | | | [...] + | [facility] | [address] | [place] [address] | | | SERVICES, CORE | [address] | | | + + + + + MAGNESIUM, PLASMA (10/12/2019 3:02 PM PST) + +-------+ + + + | Component | Value | Ref Range | Performed | Pathologist | | | | | At | Signature | + +-------+ + + + | MAGNESIUM,P | 1.7 | 1.6 - 2.6 mg/dL | [facility] [...] | + + + + + | [facility] | [address] | [place] [address] | | | SERVICES, CORE | [address] | | | + + + + + RENAL FUNCTION SET (NA,K,CL,CO2,BUN,CREAT,GLUC,CA,PHOS,ALB ) (10/12/2019 3:02 PM PST) + + + + + + | Component | Value | Ref Range | Performed | Pathologist | | | | | At | Signature | + + + + + + | GLUCOSE, | 250 (H) | 70 - 99 mg/dL | [...] + + + | CREATININE | 2.07 (H) | 0.70 - 1.30 | [facility] | | | PLASMA | | mg/dL | LABORATORY | | | (LAB) | | | SERVICES, | | | | | | CORE | | + + + + + + | EGFR | 41 (L) | >60 mL/min | [facility] | | | - | | | LABORATORY | | | [facility] | | | SERVICES, | | | [...] + + + + | POTASSIUM, | 6.8 (HH) | 3.4 - 5.0 | [facility] | [...] + + + + | PHOSPHORUS, | 4.8 [...] + + + + | ANION | 2 (L) | 4 - 11 mmol/L | [facility] | | | GAP(ALB | | | LABORATORY | | | CORRECTED) | | | SERVICES, | | | | | | CORE | | + + + + + + | BUN/CREATIN | 26 (H) | 8 - 25 | [facility] | [...] | + + + + + | [facility] | [address] | [place] [address] | | | SERVICES, CORE | [address] | | | + + + + + documented in this encounter Visit Diagnoses + + | Diagnosis | + + | Alcoholic cirrhosis of liver with ascites (HCC) - Primary Alcoholic cirrhosis of | | liver | + + | Severe protein-calorie malnutrition (HCC) Other severe protein-calorie malnutrition | + + documented in this encounter Administered Medications + +--------+ +--------+------+------+ | Medication Order | MAR | Action | Dose | Rate | Site | | | Action | Date | | | | + +--------+ +--------+------+------+ | acetaminophen (TYLENOL) tablet | Given | 10/17/20 | 325 mg | | | | 325 mg 325 mg, oral, EVERY 4 | | 19 10:14 | | | | | HOURS NEEDED, Starting Mon | | AM PST | | | | | 10/12/19 at 1459, Until Tue | | | | | | | 10/27/19 at 2054, mild pain, first | | | | | | | line, fever | | | | | | + +--------+ +--------+------+------+ +---+---+ | | | +---+---+ + +-------+ +--------+---+---+ | amiodarone (CORDARONE) tablet | Given | 10/27/19 | 200 mg | | | | 200 mg 200 mg, oral, DAILY, | | 20 8:02 | | | | | First dose on 10/12/19 at | | AM PST | | | | | 1645, Until Discontinued | | | | | | + +-------+ +--------+---+---+ +-------+ +--------+---+---+ | Given | 10/26/19 | 200 mg | | | | | 20 9:08 | | | | | | AM PST | | | | +-------+ +--------+---+---+ | Given | 10/25/19 | 200 mg | | | | | 20 8:00 | | | | | | AM PST | | | | +-------+ +--------+---+---+ +---+---+ | | | +---+---+ + +-------+ +--------+---+---+ | aspirin EC tablet 325 mg 325 | Given | 10/27/19 | 325 mg | | | | mg, oral, DAILY, First dose on | | 20 8:02 | | | | | 10/12/19 at 1645, Until | | AM PST | | | | | Discontinued | | | | | | + +-------+ +--------+---+---+ +-------+ +--------+---+---+ | Given | 10/26/19 | 325 mg | | | | | 20 9:08 | | | | | | AM PST | | | | +-------+ +--------+---+---+ | Given | 10/25/19 | 325 mg | | | | | 20 7:55 | | | | | | AM PST | | | | +-------+ +--------+---+---+ +---+---+ | | | +---+---+ + +-------+ + +---+---+ | atovaquone (MEPRON) suspension | Given | 10/27/19 | 1,500 mg | | | | 1,500 mg 1,500 mg, oral, DAILY, | | 20 12:06 | | | | | First dose on 10/12/19 at | | PM PST | | | | | 1645, Until Discontinued | | | | | | + +-------+ + +---+---+ +-------+ + +---+---+ | Given | 10/26/19 | 1,500 mg | | | | | 20 1:13 | | | | | | PM PST | | | | +-------+ + +---+---+ | Given | 10/25/19 | 1,500 mg | | | | | 20 1:07 | | | | | | PM PST | | | | +-------+ + +---+---+ +---+---+ | | | +---+---+ + +---------+ +-----+---+---+ | calcium gluconate 2 g in | New Bag | 10/12/20 | 2 g | | | | dextrose (D5) 5 % IV 2 g, | | 19 5:29 | | | | | intravenous, ONCE, 1 dose, Mon | | PM PST | | | | | 10/12/19 at 1700 | | | | | | + +---------+ +-----+---+---+ + +---+ | | | + +---+ | dextrose 50 % in water IV 25 mL | | | 25 mL, intravenous, NEEDED, | | | Starting 10/12/19 at 1453, | | | Until 10/27/19 at 2054, CBG | | | less than 70 mg/dL if patient | | | unable to take PO, per Adult | | | Hypoglycemia Protocol | | + +---+ | | | + +---+ + +-------+ +-------+---+---+ | dextrose 50 % in water IV 50 mL | Given | 10/12/20 | 50 mL | | | | 50 mL, intravenous, ONCE, 1 | | 19 4:35 | | | | | dose, 10/12/19 at 1700 | | PM PST | | | | + +-------+ +-------+---+---+ +---+---+ | | | +---+---+ + +-------+ +-------+---+---------+ | enoxaparin (LOVENOX) injection | Given | 10/26/19 | 30 mg | | Abdomen | | 30 mg 30 mg, subcutaneous, EVERY | | 20 10:54 | | | | | EVENING, First dose on Sat | | PM PST | | | | | 10/12/19 at 2100, Until | | | | | | | Discontinued | | | | | | + +-------+ +-------+---+---------+ +-------+ +-------+---+---------+ | Given | 10/25/19 | 30 mg | | Abdomen | | | 20 10:00 | | | | | | PM PST | | | | +-------+ +-------+---+---------+ | Given | 10/24/19 | 30 mg | | Right | | | 20 9:27 | | | Arm | | | PM PST | | | | +-------+ +-------+---+---------+ +---+---+ | | | +---+---+ + +---------+ +---------+---+---+ | filgrastim-sndz (VALEO) 480 | New Bag | 10/27/19 | 480 mcg | | | | mcg in dextrose (D5) 5 % IV 480 | | 20 11:02 | | | | | mcg (rounded from 408 mcg = 5 | | AM PST | | | | | mcg/kg | | | | | | | 81.6 kg), intravenous, ONCE, 1 | | | | | | | dose, [facility] 10/27/19 at 1015 | | | | | | + +---------+ +---------+---+---+ +---+---+ | | | +---+---+ + +-------+ +--------+---+---+ | fludrocortisone (FLORINEF) | Given | 10/27/19 | 0.1 mg | | | | tablet 0.1 mg 0.1 mg, oral, | | 20 8:02 | | | | | DAILY, First dose on Sat10/16/19 | | AM PST | | | | | at 0900, Until Discontinued | | | | | | + +-------+ +--------+---+---+ +-------+ +--------+---+---+ | Given | 10/26/19 | 0.1 mg | | | | | 20 9:08 | | | | | | AM PST | | | | +-------+ +--------+---+---+ | Given | 10/25/19 | 0.1 mg | | | | | 20 7:55 | | | | | | AM PST | | | | +-------+ +--------+---+---+ +---+---+ | | | +---+---+ + +-------+ +-------+---+---+ | furosemide (LASIX) injection 40 | Given | 10/12/20 | 40 mg | | | | mg 40 mg, intravenous, ONCE, 1 | | 19 4:43 | | | | | dose, 10/12/19 at 1700 | | PM PST | | | | + +-------+ +-------+---+---+ +---+---+ | | | +---+---+ + +-------+ +-------+---+---+ | furosemide (LASIX) tablet 20 mg | Given | 10/16/20 | 20 mg | | | | 20 mg, oral, TWICE DAILY | | 19 5:30 | | | | | (DIURETIC), First dose on Thelma | | PM PST | | | | | 10/15/19 at 1145, Until | | | | | | | Discontinued | | | | | | + +-------+ +-------+---+---+ +-------+ +-------+---+---+ | Given | 10/16/20 | 20 mg | | | | | 19 8:19 | | | | | | AM PST | | | | +-------+ +-------+---+---+ | Given | 10/15/20 | 20 mg | | | | | 19 5:48 | | | | | | PM PST | | | | +-------+ +-------+---+---+ + +---+ | | | + +---+ | glucagon (GLUCAGEN) injection 1 | | | mg 1 mg, intramuscular, | | | NEEDED, Starting Sat10/12/19 at | | | 1453, Until Sat10/27/19 at 2053, | | | CBG less than 70 mg/dL per Adult | | | Hypoglycemia Protocol | | + +---+ | | | + +---+ | glucose chewable tablet 16 g | | | 16 g, oral, NEEDED, Starting | | | Sat10/12/19 at 1453, Until Sat | | | 10/27/19 at 2053, CBG less than 70 | | | mg/dL per Adult Hypoglycemia | | | Protocol | | + +---+ | | | + +---+ + +-------+ + +---+--------+ | insulin glargine (LANTUS) | Given | 10/23/19 | 10 Units | | Right | | injection 10 Units 10 Units, | | 20 10:39 | | | Arm | | subcutaneous, AT BEDTIME, First | | PM PST | | | | | dose on Sat10/20/19 at 2200, | | | | | | | Until Discontinued | | | | | | + +-------+ + +---+--------+ +-------+ + +---+ + | Given | 10/22/19 | 10 Units | | Right | | | 20 10:01 | | | Arm | | | PM PST | | | | +-------+ + +---+ + | Given | 10/21/19 | 10 Units | | Left Arm | | | 20 10:58 | | | | | | PM PST | | | | +-------+ + +---+ + +---+---+ | | | +---+---+ + +-------+ + +---+---------+ | insulin glargine (LANTUS) | Given | 10/26/19 | 12 Units | | Abdomen | | injection 12 Units 12 Units, | | 20 10:57 | | | | | subcutaneous, AT BEDTIME, First | | PM PST | | | | | dose (after last modification) on | | | | | | | 10/24/19 at 2200, Until | | | | | | | Discontinued | | | | | | + +-------+ + +---+---------+ +-------+ + +---+ + | Given | 10/25/19 | 12 Units | | Abdomen | | | 20 10:31 | | | | | | PM PST | | | | +-------+ + +---+ + | Given | 10/25/19 | 12 Units | | Left Arm | | | 20 12:32 | | | | | | AM PST | | | | +-------+ + +---+ + +---+---+ | | | +---+---+ + +-------+ +---------+---+---------+ | insulin lispro (HUMALOG) | Given | 10/27/19 | 2 Units | | Abdomen | | injection 1-16 Units 1-16 Units, | | 20 12:32 | | | | | subcutaneous, FOUR TIMES DAILY, | | PM PST | | | | | First dose on 10/12/19 at | | | | | | | 1700, Until Discontinued | | | | | | + +-------+ +---------+---+---------+ +-------+ +---------+---+ + | Given | 10/26/19 | 2 Units | | Left Arm | | | 20 8:02 | | | | | | PM PST | | | | +-------+ +---------+---+ + | Given | 10/25/19 | 1 Units | | Abdomen | | | 20 10:32 | | | | | | PM PST | | | | +-------+ +---------+---+ + +---+---+ | | | +---+---+ + +-------+ + +---+--------+ | insulin lispro (HUMALOG) | Given | 10/20/20 | 10 Units | | Right | | injection 10 Units 10 Units, | | 19 2:19 | | | Arm | | subcutaneous, EVERY LUNCH, First | | PM PST | | | | | dose (after last modification) on | | | | | | | 10/17/19 at 1200, Until | | | | | | | Discontinued | | | | | | + +-------+ + +---+--------+ +-------+ + +---+ + | Given | 10/19/20 | 10 Units | | Left Arm | | | 19 5:01 | | | | | | PM PST | | | | +-------+ + +---+ + | Given | 10/18/20 | 5 Units | | Left Arm | | | 19 2:50 | | | | | | PM PST | | | | +-------+ + +---+ + +---+---+ | | | +---+---+ + +-------+ +---------+---+--------+ | insulin lispro (HUMALOG) | Given | 10/20/20 | 5 Units | | Right | | injection 10 Units 10 Units, | | 19 9:31 | | | Arm | | subcutaneous, EVERY DINNER, First | | PM PST | | | | | dose (after last modification) | | | | | | | on Sat10/20/19 at 1700, Until | | | | | | | Discontinued | | | | | | + +-------+ +---------+---+--------+ +---+---+ | | | +---+---+ + +-------+ +---------+---+--------+ | insulin lispro (HUMALOG) | Given | 10/19/20 | 3 Units | | Right | | injection 3 Units 3 Units, | | 19 9:11 | | | Arm | | subcutaneous, TWICE DAILY WITH | | PM PST | | | | | SNACK, First dose on Thelma 10/15/19 | | | | | | | at 1400, Until Discontinued | | | | | | + +-------+ +---------+---+--------+ +-------+ +---------+---+--------+ | Given | 10/16/20 | 3 Units | | Right | | | 19 8:50 | | | Arm | | | PM PST | | | | +-------+ +---------+---+--------+ | Given | 10/15/20 | 3 Units | | Right | | | 19 10:13 | | | Arm | | | PM PST | | | | +-------+ +---------+---+--------+ +---+---+ | | | +---+---+ + +-------+ +---------+---+ + | insulin lispro (HUMALOG) | Given | 10/23/19 | 4 Units | | Left Arm | | injection 4 Units 4 Units, | | 20 3:26 | | | | | subcutaneous, THREE TIMES DAILY | | PM PST | | | | | WITH MEALS, First dose on Sat | | | | | | | 10/21/19 at 0730, Until | | | | | | | Discontinued | | | | | | + +-------+ +---------+---+ + +-------+ +---------+---+--------+ | Given | 10/23/19 | 4 Units | | Right | | | 20 7:37 | | | Arm | | | AM PST | | | | +-------+ +---------+---+--------+ | Given | 10/22/19 | 2 Units | | Right | | | 20 10:01 | | | Arm | | | PM PST | | | | +-------+ +---------+---+--------+ +---+---+ | | | +---+---+ + +-------+ +---------+---+--------+ | insulin lispro (HUMALOG) | Given | 10/16/20 | 5 Units | | Right | | injection 5 Units 5 Units, | | 19 8:16 | | | Arm | | subcutaneous, THREE TIMES DAILY | | AM PST | | | | | WITH MEALS, First dose on Mon | | | | | | | 10/12/19 at 1700, Until | | | | | | | Discontinued | | | | | | + +-------+ +---------+---+--------+ +-------+ +---------+---+---------+ | Given | 10/15/20 | 5 Units | | Abdomen | | | 19 2:13 | | | | | | PM PST | | | | +-------+ +---------+---+---------+ | Given | 10/15/20 | 5 Units | | Abdomen | | | 19 10:44 | | | | | | AM PST | | | | +-------+ +---------+---+---------+ +---+---+ | | | +---+---+ + +-------+ +---------+---+---------+ | insulin lispro (HUMALOG) | Given | 10/25/19 | 5 Units | | Abdomen | | injection 5 Units 5 Units, | | 20 7:36 | | | | | subcutaneous, THREE TIMES DAILY | | AM PST | | | | | WITH MEALS, First dose (after | | | | | | | last modification) on Sat10/23/19 | | | | | | | at 1700, Until Discontinued | | | | | | + +-------+ +---------+---+---------+ +-------+ +---------+---+---------+ | Given | 10/24/19 | 5 Units | | Right | | | 20 9:28 | | | Arm | | | PM PST | | | | +-------+ +---------+---+---------+ | Given | 10/24/19 | 5 Units | | Abdomen | | | 20 1:44 | | | | | | PM PST | | | | +-------+ +---------+---+---------+ +---+---+ | | | +---+---+ + +-------+ +---------+---+--------+ | insulin lispro (HUMALOG) | Given | 10/17/20 | 6 Units | | Right | | injection 6 Units 6 Units, | | 19 10:45 | | | Arm | | subcutaneous, THREE TIMES DAILY | | AM PST | | | | | WITH MEALS, First dose (after | | | | | | | last modification) on Fri | | | | | | | 10/16/19 at 1200, Until | | | | | | | Discontinued | | | | | | + +-------+ +---------+---+--------+ +-------+ +---------+---+ + | Given | 10/16/20 | 6 Units | | Left Arm | | | 19 2:55 | | | | | | PM PST | | | | +-------+ +---------+---+ + +---+---+ | | | +---+---+ + +-------+ +---------+---+--------+ | insulin lispro (HUMALOG) | Given | 10/20/20 | 3 Units | | Right | | injection 6 Units 6 Units, | | 19 9:10 | | | Arm | | subcutaneous, EVERY BREAKFAST, | | AM PST | | | | | First dose on 10/18/19 at | | | | | | | 0730, Until Discontinued | | | | | | + +-------+ +---------+---+--------+ +-------+ +---------+---+--------+ | Given | 10/19/20 | 6 Units | | Right | | | 19 8:03 | | | Arm | | | AM PST | | | | +-------+ +---------+---+--------+ | Given | 10/18/20 | 6 Units | | Right | | | 19 7:54 | | | Arm | | | AM PST | | | | +-------+ +---------+---+--------+ +---+---+ | | | +---+---+ + +-------+ +---------+---+---------+ | insulin lispro (HUMALOG) | Given | 10/27/19 | 7 Units | | Abdomen | | injection 7 Units 7 Units, | | 20 12:32 | | | | | subcutaneous, THREE TIMES DAILY | | PM PST | | | | | WITH MEALS, First dose (after | | | | | | | last modification) on 10/25/19 | | | | | | | at 1200, Until Discontinued | | | | | | + +-------+ +---------+---+---------+ +-------+ +---------+---+ + | Given | 10/27/19 | 7 Units | | Left Arm | | | 20 8:01 | | | | | | AM PST | | | | +-------+ +---------+---+ + | Given | 10/26/19 | 7 Units | | Left Arm | | | 20 8:02 | | | | | | PM PST | | | | +-------+ +---------+---+ + +---+---+ | | | +---+---+ + +-------+ +---------+---+ + | insulin lispro (HUMALOG) | Given | 10/17/20 | 9 Units | | Left Arm | | injection 9 Units 9 Units, | | 19 5:52 | | | | | subcutaneous, EVERY DINNER, First | | PM PST | | | | | dose on 10/17/19 at 1700, | | | | | | | Until Discontinued | | | | | | + +-------+ +---------+---+ + +---+---+ | | | +---+---+ + +-------+ + +---+---------+ | insulin NPH (HUMULIN N) | Given | 10/20/20 | 17 Units | | Abdomen | | injection 17 Units 17 Units, | | 19 9:10 | | | | | subcutaneous, BEFORE BREAKFAST, | | AM PST | | | | | First dose on Sat10/13/19 at | | | | | | | 0630, Until Discontinued | | | | | | + +-------+ + +---+---------+ +-------+ + +---+--------+ | Given | 10/19/20 | 17 Units | | Right | | | 19 8:04 | | | Arm | | | AM PST | | | | +-------+ + +---+--------+ | Given | 10/18/20 | 17 Units | | Right | | | 19 7:54 | | | Arm | | | AM PST | | | | +-------+ + +---+--------+ +---+---+ | | | +---+---+ + +-------+ +---------+---+--------+ | insulin NPH (HUMULIN N) | Given | 10/19/20 | 5 Units | | Right | | injection 5 Units 5 Units, | | 19 9:12 | | | Arm | | subcutaneous, AT BEDTIME, First | | PM PST | | | | | dose (after last modification) on | | | | | | | 10/18/19 at 2200, Until | | | | | | | Discontinued | | | | | | + +-------+ +---------+---+--------+ +-------+ +---------+---+--------+ | Given | 10/18/20 | 5 Units | | Right | | | 19 10:03 | | | Arm | | | PM PST | | | | +-------+ +---------+---+--------+ +---+---+ | | | +---+---+ + +-------+ +---------+---+--------+ | insulin NPH (HUMULIN N) | Given | 10/16/20 | 7 Units | | Right | | injection 7 Units 7 Units, | | 19 8:51 | | | Arm | | subcutaneous, AT BEDTIME, First | | PM PST | | | | | dose on 10/12/19 at 2200, | | | | | | | Until Discontinued | | | | | | + +-------+ +---------+---+--------+ +-------+ +---------+---+--------+ | Given | 10/15/20 | 7 Units | | Right | | | 19 10:13 | | | Arm | | | PM PST | | | | +-------+ +---------+---+--------+ | Given | 10/14/20 | 7 Units | | Right | | | 19 9:51 | | | Arm | | | PM PST | | | | +-------+ +---------+---+--------+ +---+---+ | | | +---+---+ + +-------+ + +---+---------+ | insulin regular (HUMULIN R) | Given | 10/12/20 | 10 Units | | Abdomen | | injection 10 Units 10 Units, | | 19 4:39 | | | | | intravenous, ONCE, 1 dose, Mon | | PM PST | | | | | 10/12/19 at 1700 | | | | | | + +-------+ + +---+---------+ +---+---+ | | | +---+---+ + +---------+ + +---+---+ | lactated ringers (LR) bolus | New Bag | 10/12/20 | 1,000 mL | | | | 1,000 mL 1,000 mL, intravenous, | | 19 4:42 | | | | | ONCE, 1 dose, 10/12/19 at | | PM PST | | | | | 1530 | | | | | | + +---------+ + +---+---+ +---+---+ | | | +---+---+ + + + + + +---+ | lactated ringers (LR) infusion | Rate/Dos | 10/14/20 | 50 mL/hr | 50 mL/hr | | | 50 mL/hr, intravenous, | e Change | 19 11:15 | | | | | CONTINUOUS, Starting 10/12/19 | | AM PST | | | | | at 1530, Until 10/14/19 at | | | | | | | 1600 | | | | | | + + + + + +---+ + + +-------+-------+---+ | New Bag | 10/14/20 | 100 | 100 | | | | 19 9:51 | mL/hr | mL/hr | | | | AM PST | | | | + + +-------+-------+---+ | Rate/Dose Verify | 10/14/20 | 100 | 100 | | | | 19 8:17 | mL/hr | mL/hr | | | | AM PST | | | | + + +-------+-------+---+ +---+---+ | | | +---+---+ + +-------+ +--------+---+---+ | magnesium oxide (MAG-OX) tablet | Given | 10/27/19 | 400 mg | | | | 400 mg 400 mg, oral, TWICE | | 20 8:02 | | | | | DAILY, First dose on 10/14/19 | | AM PST | | | | | at 2100, Until Discontinued | | | | | | + +-------+ +--------+---+---+ + + +--------+---+---+ | Self Administered Via Pump | 10/26/19 | 400 mg | | | | | 20 8:00 | | | | | | PM PST | | | | + + +--------+---+---+ | Given | 10/26/19 | 400 mg | | | | | 20 9:08 | | | | | | AM PST | | | | + + +--------+---+---+ +---+---+ | | | +---+---+ + +---------+ +-----+---+---+ | magnesium sulfate in water IV | New Bag | 10/16/20 | 4 g | | | | (RTU) 4 g 4 g, intravenous, | | 19 9:36 | | | | | ONCE, 1 dose, 10/16/19 at | | AM PST | | | | | 0945 | | | | | | + +---------+ +-----+---+---+ +---+---+ | | | +---+---+ + +-------+ +---------+---+---+ | metoprolol tartrate (LOPRESSOR) | Given | 10/25/19 | 12.5 mg | | | | tablet 12.5 mg 12.5 mg, oral, | | 20 7:55 | | | | | TWICE DAILY, First dose on Mon | | AM PST | | | | | 10/12/19 at 2100, Until | | | | | | | Discontinued | | | | | | + +-------+ +---------+---+---+ +-------+ +---------+---+---+ | Given | 10/24/19 | 12.5 mg | | | | | 20 9:27 | | | | | | PM PST | | | | +-------+ +---------+---+---+ | Given | 10/24/19 | 12.5 mg | | | | | 20 8:14 | | | | | | AM PST | | | | +-------+ +---------+---+---+ +---+---+ | | | +---+---+ + +-------+ +---------+---+---+ | metoprolol tartrate (LOPRESSOR) | Given | 10/27/19 | 12.5 mg | | | | tablet 12.5 mg 12.5 mg, oral, | | 20 8:02 | | | | | TWICE DAILY, First dose (after | | AM PST | | | | | last modification) on Sat10/26/19 | | | | | | | at 0900, Until Discontinued | | | | | | + +-------+ +---------+---+---+ +-------+ +---------+---+---+ | Given | 10/26/19 | 12.5 mg | | | | | 20 9:08 | | | | | | AM PST | | | | +-------+ +---------+---+---+ +---+---+ | | | +---+---+ + +-------+ +-------+---+---+ | mirtazapine (REMERON) tablet 15 | Given | 10/19/20 | 15 mg | | | | mg 15 mg, oral, EVERY EVENING, | | 19 9:11 | | | | | First dose on Sat10/12/19 at | | PM PST | | | | | 2100, Until Discontinued | | | | | | + +-------+ +-------+---+---+ +-------+ +-------+---+---+ | Given | 10/18/20 | 15 mg | | | | | 19 9:42 | | | | | | PM PST | | | | +-------+ +-------+---+---+ | Given | 10/17/20 | 15 mg | | | | | 19 9:06 | | | | | | PM PST | | | | +-------+ +-------+---+---+ +---+---+ | | | +---+---+ + + + +-------+---+---+ | mirtazapine (REMERON) tablet 30 | Self | 10/26/19 | 30 mg | | | | mg 30 mg, oral, EVERY EVENING, | Administ | 20 8:00 | | | | | First dose (after last | ered Via | PM PST | | | | | modification) on Sat10/20/19 at | Pump | | | | | | 2100, Until Discontinued | | | | | | + + + +-------+---+---+ +-------+ +-------+---+---+ | Given | 10/25/19 | 30 mg | | | | | 20 9:49 | | | | | | PM PST | | | | +-------+ +-------+---+---+ | Given | 10/24/19 | 30 mg | | | | | 20 9:27 | | | | | | PM PST | | | | +-------+ +-------+---+---+ +---+---+ | | | +---+---+ + +-------+ + +---+---+ | multivitamin (THERA VITAMIN) 1 | Given | 10/20/20 | 1 tablet | | | | tablet 1 tablet, oral, DAILY, | | 19 9:17 | | | | | First dose on Sat10/12/19 at | | AM PST | | | | | 1700, Until Discontinued | | | | | | + +-------+ + +---+---+ +-------+ + +---+---+ | Given | 10/19/20 | 1 tablet | | | | | 19 8:05 | | | | | | AM PST | | | | +-------+ + +---+---+ | Given | 10/18/20 | 1 tablet | | | | | 19 8:53 | | | | | | AM PST | | | | +-------+ + +---+---+ +---+---+ | | | +---+---+ + +-------+ + +---+---+ | mycophenolate (CELLCEPT) | Given | 10/25/19 | 1,000 mg | | | | capsule 1,000 mg 1,000 mg, oral, | | 20 5:47 | | | | | TWICE DAILY WITH MEALS (MMF), | | PM PST | | | | | First dose on 10/12/19 at | | | | | | | 1800, Until Discontinued | | | | | | + +-------+ + +---+---+ +-------+ + +---+---+ | Given | 10/25/19 | 1,000 mg | | | | | 20 7:55 | | | | | | AM PST | | | | +-------+ + +---+---+ | Given | 10/24/19 | 1,000 mg | | | | | 20 6:06 | | | | | | PM PST | | | | +-------+ + +---+---+ +---+---+ | | | +---+---+ + +-------+ +-------+---+---+ | omeprazole (PRILOSEC) capsule | Given | 10/20/20 | 20 mg | | | | 20 mg 20 mg, oral, DAILY, First | | 19 9:16 | | | | | dose on 10/12/19 at 1645, | | AM PST | | | | | Until Discontinued | | | | | | + +-------+ +-------+---+---+ +-------+ +-------+---+---+ | Given | 10/19/20 | 20 mg | | | | | 19 8:05 | | | | | | AM PST | | | | +-------+ +-------+---+---+ | Given | 10/18/20 | 20 mg | | | | | 19 7:54 | | | | | | AM PST | | | | +-------+ +-------+---+---+ +---+---+ | | | +---+---+ + +-------+ +------+---+---+ | ondansetron (ZOFRAN) injection | Given | 10/22/19 | 4 mg | | | | 4 mg 4 mg, intravenous, EVERY 12 | | 20 2:21 | | | | | HOURS NEEDED, Starting Wed | | PM PST | | | | | 10/21/19 at 2226, Until 10/27/19 | | | | | | | at 4, n/v, if unable to take | | | | | | | oral form of medication | | | | | | + +-------+ +------+---+---+ +-------+ +------+---+---+ | Given | 10/21/19 | 4 mg | | | | | 20 10:38 | | | | | | PM PST | | | | +-------+ +------+---+---+ +---+---+ | | | +---+---+ + +-------+ +------+---+---+ | ondansetron ODT (ZOFRAN ODT) | Given | 10/22/19 | 4 mg | | | | tablet 4 mg 4 mg, oral, EVERY 8 | | 20 9:57 | | | | | HOURS NEEDED, Starting Wed | | PM PST | | | | | 10/21/19 at 2226, Until 10/27/19 | | | | | | | at 2054, nausea/vomiting, first | | | | | | | line | | | | | | + +-------+ +------+---+---+ +---+---+ | | | +---+---+ + +-------+ +------+---+---+ | predniSONE (DELTASONE) tablet 5 | Given | 10/20/20 | 5 mg | | | | mg 5 mg, oral, DAILY, First | | 19 9:18 | | | | | dose on 10/12/19 at 1645, | | AM PST | | | | | Until Discontinued | | | | | | + +-------+ +------+---+---+ +-------+ +------+---+---+ | Given | 10/19/20 | 5 mg | | | | | 19 8:05 | | | | | | AM PST | | | | +-------+ +------+---+---+ | Given | 10/18/20 | 5 mg | | | | | 19 7:54 | | | | | | AM PST | | | | +-------+ +------+---+---+ +---+---+ | | | +---+---+ + +---------+ +--------+---+---+ | sodium chloride (NS) 0.9 % | New Bag | 10/19/20 | 500 mL | | | | bolus 500 mL 500 mL, | | 19 6:06 | | | | | intravenous, ONCE, 1 dose, Mon | | PM PST | | | | | 10/19/19 at 1830 | | | | | | + +---------+ +--------+---+---+ +---+---+ | | | +---+---+ + +-------+ +------+---+---+ | sodium polystyrene (KAYEXALATE) | Given | 10/13/20 | 15 g | | | | powder 15 g 15 g, oral, ONCE, 1 | | 19 12:06 | | | | | dose, Jbe 10/13/19 at 1045 | | PM PST | | | | + +-------+ +------+---+---+ +---+---+ | | | +---+---+ + +-------+ +------+---+---+ | tacrolimus capsule 2 mg 2 mg, | Given | 10/14/20 | 2 mg | | | | oral, TWICE DAILY, First dose on | | 19 8:16 | | | | | 10/12/19 at 1800, Until | | AM PST | | | | | Discontinued | | | | | | + +-------+ +------+---+---+ +-------+ +------+---+---+ | Given | 10/13/20 | 2 mg | | | | | 19 6:28 | | | | | | PM PST | | | | +-------+ +------+---+---+ | Given | 10/13/20 | 2 mg | | | | | 19 8:15 | | | | | | AM PST | | | | +-------+ +------+---+---+ +---+---+ | | | +---+---+ + +-------+ +------+---+---+ | tacrolimus capsule 2 mg 2 mg, | Given | 10/22/19 | 2 mg | | | | oral, TWICE DAILY, First dose | | 20 7:41 | | | | | (after last modification) on Mon | | AM PST | | | | | 10/19/19 at 1800, Until | | | | | | | Discontinued | | | | | | + +-------+ +------+---+---+ +-------+ +------+---+---+ | Given | 10/21/19 | 2 mg | | | | | 20 6:31 | | | | | | PM PST | | | | +-------+ +------+---+---+ | Given | 10/21/19 | 2 mg | | | | | 20 8:13 | | | | | | AM PST | | | | +-------+ +------+---+---+ +---+---+ | | | +---+---+ + +-------+ +------+---+---+ | tacrolimus capsule 3 mg 3 mg, | Given | 10/15/20 | 3 mg | | | | oral, TWICE DAILY, First dose | | 19 8:35 | | | | | (after last modification) on Wed | | AM PST | | | | | 10/14/19 at 1800, Until | | | | | | | Discontinued | | | | | | + +-------+ +------+---+---+ +-------+ +------+---+---+ | Given | 10/14/20 | 3 mg | | | | | 19 6:17 | | | | | | PM PST | | | | +-------+ +------+---+---+ +---+---+ | | | +---+---+ + +-------+ +------+---+---+ | tacrolimus capsule 3 mg 3 mg, | Given | 10/19/20 | 3 mg | | | | oral, TWICE DAILY, First dose | | 19 8:05 | | | | | (after last modification) on Sun | | AM PST | | | | | 10/18/19 at 1800, Until | | | | | | | Discontinued | | | | | | + +-------+ +------+---+---+ +-------+ +------+---+---+ | Given | 10/18/20 | 3 mg | | | | | 19 6:00 | | | | | | PM PST | | | | +-------+ +------+---+---+ +---+---+ | | | +---+---+ + +-------+ +------+---+---+ | tacrolimus capsule 3 mg 3 mg, | Given | 10/27/19 | 3 mg | | | | oral, TWICE DAILY, First dose | | 20 8:02 | | | | | (after last modification) on Thelma | | AM PST | | | | | 10/22/19 at 1800, Until | | | | | | | Discontinued | | | | | | + +-------+ +------+---+---+ +-------+ +------+---+---+ | Given | 10/26/19 | 3 mg | | | | | 20 6:20 | | | | | | PM PST | | | | +-------+ +------+---+---+ | Given | 10/26/19 | 3 mg | | | | | 20 8:15 | | | | | | AM PST | | | | +-------+ +------+---+---+ +---+---+ | | | +---+---+ + +-------+ +------+---+---+ | tacrolimus capsule 4 mg 4 mg, | Given | 10/18/20 | 4 mg | | | | oral, TWICE DAILY, First dose | | 19 7:54 | | | | | (after last modification) on Sat | | AM PST | | | | | 10/15/19 at 1800, Until | | | | | | | Discontinued | | | | | | + +-------+ +------+---+---+ +-------+ +------+---+---+ | Given | 10/17/20 | 4 mg | | | | | 19 5:53 | | | | | | PM PST | | | | +-------+ +------+---+---+ | Given | 10/17/20 | 4 mg | | | | | 19 8:01 | | | | | | AM PST | | | | +-------+ +------+---+---+ +---+---+ | | | +---+---+ + +-------+ +--------+---+---+ | valGANciclovir (VALCYTE) tablet | Given | 10/21/19 | 450 mg | | | | 450 mg 450 mg, oral, EVERY | | 20 8:13 | | | | | MO-LEO (Once per day on Sat | | AM PST | | | | | Sat), First dose on Sat10/12/19 | | | | | | | at 1645, Until Discontinued | | | | | | + +-------+ +--------+---+---+ +-------+ +--------+---+---+ | Given | 10/19/20 | 450 mg | | | | | 19 8:05 | | | | | | AM PST | | | | +-------+ +--------+---+---+ | Given | 10/16/20 | 450 mg | | | | | 19 8:19 | | | | | | AM PST | | | | +-------+ +--------+---+---+ +---+---+ | | | +---+---+ + +-------+ +--------+---+---+ | valGANciclovir (VALCYTE) tablet | Given | 10/27/19 | 450 mg | | | | 450 mg 450 mg, oral, DAILY, | | 20 8:02 | | | | | First dose (after last | | AM PST | | | | | modification) on Sat10/23/19 at | | | | | | | 0900, Until Discontinued | | | | | | + +-------+ +--------+---+---+ +-------+ +--------+---+---+ | Given | 10/26/19 | 450 mg | | | | | 20 9:08 | | | | | | AM PST | | | | +-------+ +--------+---+---+ | Given | 10/25/19 | 450 mg | | | | | 20 7:55 | | | | | | AM PST | | | | +-------+ +--------+---+---+ +---+---+ | | | +---+---+ documented in this encounter
--- OUTSIDE RECORDS SUMMARY | ~2020-07-29 | XMS | Encounter Summary ---
Demographics + + + | Address | [address] | | | [place] [address] | + + + | Home Phone [...] [place] | | | | | [address] | | + + + + + Care Team Providers + +------+ + | Care Court Crier Name | Role | Phone | + +------+ + | [place] David MD | PCP | | + +------+ + Encounter Details +--------+ + + + + | Date | Type | Department | Care Team | Description | +--------+ + + + + | 06/06/ | Pharmacy | [facility] | | | | 2020 | Visit | [address] | | | | | | [address] | | | | | | [place] [address] | | | | | | [phone] | | | +--------+ + + + [...] Rd | | | | | | [place], [place] | | | | | | [address] | | | | | | [phone] | | | | | | | | +--------+ + + + + | 09/27/ | Telephone-S | Liver Transplant | Vimal Crowe MD | | | 2019 | cheduled | | [address] | | | | | | [address], | | | | | | [place] [address] | | | | | | [phone] | | | | | | | [...] Rd | | | | | | [place] | | | | | | [address] | | | | | | [phone] | | | | | | | | +--------+ + + + + documented as of this encounter Visit Diagnoses Not on filedocumented in this encounter"
--- OUTSIDE RECORDS SUMMARY | ~2020-07-29 | XMS | Encounter Summary ---
Demographics + + + | Address | [address] | | | [place] [address] | + + + | Home Phone [...] [place] | | | | | [address] | | + + + + + Care Team Providers + +------+ + | Care House Piping Inspector Name | Role | Phone | + +------+ + | [place] David MD | PCP | | + +------+ + Encounter Details +--------+ + + + + | Date | Type | Department | Care Team | Description | +--------+ + + + + | 08/31/ | Pharmacy | Specialty Pharmacy | | | | 2019 | Visit | Services [address] | | | | | [address] | | | | | | [place], [place] | | | | | | [address] | | | | | | [phone] | | | +--------+ + + + [...] | | 2019 | [place] | | [address] | | | | | | [address] | | | | | | [place], [place] | | | | | | [address] | | | | | | [phone] | | | | | | | | +--------+ + + + + | 09/27/ | Telephone-S | Liver Transplant | Vimal Crowe MD | | | 2019 | cheduled | | [address] | | | | | | [facility] [place], | | | | | | [place] [address] | | | | | | [phone] | | | | | | | | +--------+ + + + + | 10/03/ | Appointment | Cardiology | | | | 2019 | | | | | +--------+ + + + + | 10/03/ | Office | Cardiology | Cyril Samuel | | | 2019 | Visit | | MD [place] [address] | | | | | | [address] | | | | | | [place], [place] | | | | | | [address] | | | | | | [phone] | | | | | | | | +--------+ + + + + documented as of this encounter Visit Diagnoses Not on filedocumented in this encounter"
--- OUTSIDE RECORDS SUMMARY | ~2020-07-29 | XMS | Encounter Summary ---
Demographics + + + | Address | [address] | | | [place] [address] | + + + | Home Phone [...] [place] | | | | | [address] | | + + + + + Care Team Providers + +------+ + | Care Pararescue Craftsman Name | Role | Phone | + +------+ + | [place] David MD | PCP | | + +------+ + Reason for Visit + + + | Reason | Comments | + + + | Liver Transplant | prograf dose | | Follow Up | | + + + Encounter Details +--------+ + + + + | Date | Type | Department | Care Team | Description | +--------+ + + + + | 09/10/ | Documentati | Clinical | [facility], | Liver Transplant | | 2019 | on | Transplant Services | [facility] [address] | Follow Up (prograf | | | | [address] | [address] | dose ) | | | | [place], | [place], [place] | | | | | [place] [address] | [address] | | | | | [phone] | [phone] | | | | | | | [...] Telephone Encounter - Judie Mota RN - 09/10/2019 7:55 PM PSTPrograf level high on a dose of 5/5 decrease to 4/4 per Pattie Ignacio PA-C. Called LVM with dose change on Doreen ( sister) phone with dose change will also send [employer] message. Patient is seen tomorrow in clinic, documented in this encounter Plan of Treatment +--------+ + + + + | Date | Type | Specialty | Care Team | Description | +--------+ + + + + | 08/08/ | Telephone-S | Nephrology | Angélica Chao, | | | 2019 | [place] | | [address] | | | | | | [address] | | | | | | [place], [place] | | | | | | [address] | | | | | | [phone] | | | | | | | | +--------+ + + + + | 09/27/ | Telephone-S | Liver Transplant | Vimal Crowe MD | | | 2019 | cheduled | | [address] | | | | | | [address], | | | | | | [place] [address] | | | | | | [phone] | | | | | | | | +--------+ + + + + | 10/03/ | Appointment | Cardiology | | | | 2019 | | | | | +--------+ + + + + | 10/03/ | Office | Cardiology | Cyril Samuel | | | 2019 | Visit | | MD [place] [address] | | | | | | [address] | | | | | | [place] | | | | | | [address] | | | | | | [phone] | | | | | | | | +--------+ + + + + documented as of this encounter Visit Diagnoses Not on filedocumented in this encounter"
--- OUTSIDE RECORDS SUMMARY | ~2020-07-29 | XMS | Encounter Summary ---
Demographics + + + | Address | [address] | | | [place] [address] | + + + | Home Phone [...] [place] | | | | | [address] | | + + + + + Care Team Providers + +------+ + | Care Steelworker Name | Role | Phone | + +------+ + | [place] David MD | PCP | | + +------+ + Encounter Details +--------+ + + + + | Date | Type | Department | Care Team | Description | +--------+ + + + + | 02/19/ | MyChart | Cardiology General | | Please Schedule an | | 2019 | Encounter | at [facility] [address] | | Appointment | | | | [facility], | | | | | | Building | | | | | | Floor [place], [place] | | | | | | [address] | | | | | | [phone] | | | +--------+ + + + [...] | | | | | | [place] | | | | | | [address] | | | | | | [phone] | | | | | | | | +--------+ + + + + | 09/27/ | Telephone-S | Liver Transplant | Vimal Crowe MD | | | 2019 | [place] | | [address] | | | | | | [place], | | | | | | [place] [address] | | | | | | [phone] | | | | | | | | +--------+ + + + + | 10/03/ | Appointment | Cardiology | | | | 2019 | | | | | +--------+ + + + + | 10/03/ | Office | Cardiology | Cyril Samuel | | | 2019 | Visit | | MD [place] [address] [facility] | | | | | | [address] | | | | | | [place] | | | | | | [address] | | | | | | [phone] | | | | | | | | +--------+ + + + + documented as of this encounter Visit Diagnoses Not on filedocumented in this encounter"
--- OUTSIDE RECORDS SUMMARY | ~2020-07-29 | XMS | Encounter Summary ---
Demographics + + + | Address | [address] | | | [place] [address] | + + + | Home Phone [...] [place] | | | | | [address] | | + + + + + Care Team Providers + +------+ + | Care Go Go Dancer Name | Role | Phone | + [...] [address] | [address] [place], | dose change and | | | | [place], | [place] [address] | restart MMF) | | | | [place] [address] | [phone] | | | | | [phone] | | | +--------+ + + + [...] Encounter - Judie Mota RN - 07/18/2020 3:32 PM PDTFormatting [...] [address] | | | | | | [place], [place] | | | | | | [address] | | | | | | [phone] | | | | | | | | +--------+ + + + + | 09/27/ | Telephone-S | Liver Transplant | Vimal Crowe MD | | | 2019 | [place] | | [address] | | | | | | [address], | | | | | | [place] [address] | | | | | | [phone] | | | | | | | [...] Rd | | | | | | [place], [place] | | | | | | [address] | | | | | | [phone] | | | | | | | | +--------+ + + + + documented as of this encounter Visit Diagnoses Not on filedocumented in this encounter"
--- OUTSIDE RECORDS SUMMARY | ~2020-07-29 | XMS | Encounter Summary ---
Demographics + + + | Address | [address] | | | [place] [address] | + + + | Home Phone [...] [place] | | | | | [address] | | + + + + + Care Team Providers + +------+ + | Care Swabber Name | Role | Phone | + +------+ + | [place] David MD | PCP | | + +------+ + Encounter Details +--------+--------+ + + + | Date | Type | Department | Care Team | Description | +--------+--------+ + + + | 09/07/ | Travel | | | | | [...] Rd | | | | | | [place], [place] | | | | | | [address] | | | | | | [phone] | | | | | | | | +--------+ + + + + | 09/27/ | Telephone-S | Liver Transplant | Vimal Crowe MD | | | 2019 | [place] | | [address] | | | | | | [address], | | | | | | [place] [address] | | | | | | [phone] | | | | | | | [...] [place] | | | | | | [address] | | | | | | [phone] | | | | | | | | +--------+ + + + + documented as of this encounter Visit Diagnoses Not on filedocumented in this encounter"
--- OUTSIDE RECORDS SUMMARY | ~2020-07-29 | XMS | Encounter Summary ---
Demographics + + + | Address | [address] | | | [place] [address] | + + + | Home Phone [...] [place] | | | | | [address] | | + + + + + Care Team Providers + +------+ + | Care Electrical Drafter Name | Role | Phone | [...] | | | [place], | [place] [address] | follow-up) | | | | [place] [address] | | | | | | [phone] | | | +--------+ + + + [...] - 06/03/2020 7:39 AM PDTPer chart review, [facility] stopp ed 10/2019 d/t cytopenia and has [...] Rd | | | | | | [place], [place] | | | | | | [address] | | | | | | [phone] | | | | | | | | +--------+ + + + + | 09/27/ | Telephone-S | Liver Transplant | Vimal Crowe MD | | | 2019 | cheduled | | [address] | | | | | | [address], | | | | | | [place] [address] | | | | | | [phone] | | | | | | | [...] [place] | | | | | | [address] | | | | | | [phone] | | | | | | | | +--------+ + + + + documented as of this encounter Visit Diagnoses Not on filedocumented in this encounter"
--- OUTSIDE RECORDS SUMMARY | ~2020-07-29 | XMS | Encounter Summary ---
Demographics + + + | Address | [address] | | | [place] [address] | + + + | Home Phone [...] [place] | | | | | [address] | | + + + + + Care Team Providers + +------+ + | Care Pool Installer Name | Role | Phone | + +------+ + | [place] David MD | PCP | | + +------+ + Encounter Details +--------+ + + + + | Date | Type | Department | Care Team | Description | +--------+ + + + + | 09/11/ | Pharmacy | Outpatient Retail | | | | 2018 | Visit | Clinic Pharmacy | | | | | | [address] | | | | | | [address] [place], [place] | | | | | | [address] | | | | | | [phone] | | | +--------+ + + + [...] Rd | | | | | | [place], [place] | | | | | | [address] | | | | | | [phone] | | | | | | | | +--------+ + + + + | 09/27/ | Telephone-S | Liver Transplant | Vimal Crowe MD | | | 2019 | cheduled | | [address] | | | | | | [facility] [place], | | | | | | [place] [address] | | | | | | [phone] | | | | | | | [...] Rd | | | | | | [place], [place] | | | | | | [address] | | | | | | [phone] | | | | | | | | +--------+ + + + + documented as of this encounter Visit Diagnoses Not on filedocumented in this encounter"
--- OUTSIDE RECORDS SUMMARY | ~2020-07-29 | XMS | Encounter Summary ---
Demographics + + + | Address | [address] | | | [place] [address] | + + + | Home Phone [...] [place] | | | | | [address] | | + + + + + Care Team Providers + +------+ + | Care Echo Vasc Tech Name | Role | Phone | + +------+ + | [place] David MD | PCP | | + +------+ + Encounter Details +--------+ + + + + | Date | Type | Department | Care Team | Description | +--------+ + + + + | 11/17/ | Pharmacy | Outpatient Retail | | | | 2019 | Visit | Clinic Pharmacy | | | | | | [address] | | | | | | [place], [place] | | | | | | [address] | | | | | | [phone] | | | +--------+ + + + [...] Rd | | | | | | [place], [place] | | | | | | [address] | | | | | | [phone] | | | | | | | | +--------+ + + + + | 09/27/ | Telephone-S | Liver Transplant | Vimal Crowe MD | | | 2019 | cheduled | | [address] | | | | | | [facility] [place], | | | | | | [place] [address] | | | | | | [phone] | | | | | | | [...] Rd | | | | | | [place], [place] | | | | | | [address] | | | | | | [phone] | | | | | | | | +--------+ + + + + documented as of this encounter Visit Diagnoses Not on filedocumented in this encounter"
--- OUTSIDE RECORDS SUMMARY | ~2020-07-29 | XMS | Encounter Summary ---
Demographics + + + | Address | [address] | | | [place] [address] | + + + | Home Phone [...] [place] | | | | | [address] | | + + + + + Care Team Providers + +------+ + | Care Loan Secretary Name | Role | Phone | + +------+ + | [place] David MD | PCP | | + +------+ + Encounter Details +--------+--------+ + + + | Date | Type | Department | Care Team | Description | +--------+--------+ + + + | 03/19/ | Travel | | | | | [...] Rd | | | | | | [place], [place] | | | | | | [address] | | | | | | [phone] | | | | | | | | +--------+ + + + + | 09/27/ | Telephone-S | Liver Transplant | Vimal Crwoe MD | | | 2019 | [place] | | [address] | | | | | | [address] [place], | | | | | | [place] [address] | | | | | | [phone] | | | | | | | | +--------+ + + + + | 10/03/ | Appointment | Cardiology | | | | 2019 | | | | | +--------+ + + + + | 10/03/ | Office | Cardiology | Cyril Samuel | | | 2019 | Visit | | MD [place] [address] | | | | | | [address] | | | | | | [place] | | | | | | [address] | | | | | | [phone] | | | | | | | | +--------+ + + + + documented as of this encounter Visit Diagnoses Not on filedocumented in this encounter"
--- OUTSIDE RECORDS SUMMARY | ~2020-07-29 | XMS | Encounter Summary ---
Demographics + + + | Address | [address] | | | [place] [address] | + + + | Home Phone [...] [place] | | | | | [address] | | + + + + + Care Team Providers + +------+ + | Care Underwear Cutter Name | Role | Phone | + +------+ + | [place] David MD | PCP | | + +------+ + Encounter Details +--------+ + + + + | Date | Type | Department | Care Team | Description | +--------+ + + + + | 12/28/ | Abstract | Clinical | Vimal Crowe MD | | | 2020 | | Transplant Services | [address] | | | | | [address] | [address] [place], | | | | | [place], | [place] [address] | | | | | [place] [address] | [phone] | | | | | [phone] | | | +--------+ + + + [...] Rd | | | | | | [place], [place] | | | | | | [address] | | | | | | [phone] | | | | | | | | +--------+ + + + + | 09/27/ | Telephone-S | Liver Transplant | Vimal Crowe MD | | | 2019 | [place] | | [address] | | | | | | [facility] [address] [place], | | | | | | [place] [address] | | | | | | [phone] | | | | | | | | +--------+ + + + + | 10/03/ | Appointment | Cardiology | | | | 2019 | | | | | +--------+ + + + + | 10/03/ | Office | Cardiology | Cyril Samuel | | | 2019 | Visit | Darren Gomez MD [address] | | | | | | [address] | | | | | | [place], [place] | | | | | | [address] | | | | | | [phone] | | | | | | | | +--------+ + + + + documented as of this encounter Procedures + +--------+ + + + | Procedure Name | Priori | Date/Time | Associated Diagnosis | Comments | | | ty | | | | + +--------+ + + + | LIVER TRANSPLANT | Routin | 12/28/2019 | | Results for this | | POST PANEL (EXT | e | 12:08 PM | | procedure are in the | | RESULTS) | | PDT | | results section. | + +--------+ + + + documented in this encounter Results LIVER TRANSPLANT POST PANEL (EXT RESULTS) (12/28/2019 12:08 PM PDT) + + + + + [...] + + + + | GLUCOSE, | 150 (A) | 65 - 110 mg/dL | [...] + + + + | CREATININE | 1.77 | mg/dL | [facility] | | | [...] + + + + | MAGNESIUM,P | 1.3 | mg/dL | [facility] | | | [...] + + | ALK PHOS | 49 | U/L | [facility] | | | | | | LAB - | | | | | | [facility] | | + + + + + + | AST(SGOT) | 10 | U/L | [facility] | | | | | | LAB - | | | | | | [place] | | + + + + + + | ALT (SGPT) | 7 | U/L | [facility] | | | [...] + + + + | HEMATOCRIT | 34.8 | % | [facility] | | | [...] + + + | PLATELET | 75 | K/cu mm | [facility] | | [...] [address] | [place] | [phone] | | [place] | | | | + + + + + documented in this encounter Visit Diagnoses Not on filedocumented in this encounter"
--- OUTSIDE RECORDS SUMMARY | ~2020-07-29 | XMS | Encounter Summary ---
Demographics + + + | Address | [address] | | | [place] [address] | + + + | Home Phone [...] [place] | | | | | [address] | | + + + + + Care Team Providers + +------+ + | Care Funeral Service Apprentice Name | Role | Phone | [...] Jaime | ultrasound | | | | [place] [address] | | | | | [address] | [place], [place] | | | | | [place] [address] | [address] | | | | | [phone] | [phone] | | | | | | | [...] [address] | | | | | | [place], [place] | | | | | | [address] | | | | | | [phone] | | | | | | | | +--------+ + + + + | 09/27/ | Telephone-S | Liver Transplant | Vimal Crowe MD | | | 2019 | cheduled | | [address] | | | | | | [facility] [address] [place], | | | | | | [place] [address] | | | | | | [phone] | | | | | | | [...] Rd | | | | | | [place], [place] | | | | | | [address] | | | | | | [phone] | | | | | | | | +--------+ + + + + documented as of this encounter Visit Diagnoses Not on filedocumented in this encounter"
--- OUTSIDE RECORDS SUMMARY | ~2020-07-29 | XMS | Encounter Summary ---
Demographics + + + | Address | [address] | | | [place] [address] | + + + | Home Phone [...] [place] | | | | | [address] | | + + + + + Care Team Providers + +------+ + | Care Global Security Architect Name | Role | Phone | + +------+ + | Sharon David MD | PCP | | + +------+ + Reason for Visit + +--------+ + | Reason | Onset | Comments | | | Date | | + +--------+ + | Appointment | 03/04/ | r/s with Chasidy | | | 2019 | | + +--------+ + Encounter Details +--------+ + + + + | Date | Type | Department | Care Team | Description | +--------+ + + + + | 03/04/ | Telephone | Cardiology General | Chasidy Osullivan | Appointment (r/s | | 2019 | | at [facility] [address] | ALEX Quintanilla [address] | with Chasidy) | | | | [facility] | Tyrel [facility], | | | | | [facility], | [place] [address] | | | | | [place] [address] [facility] | [phone] | | | | | [place], [place] | | | | | | [address] | | | | | | [phone] | | | +--------+ + + + [...] this encounter Miscellaneous Notes Telephone Encounter - Su Bello - 03/04/2019 11:55 AM PDT 03/04- LVM to call to re-sched with Chasidy for an earlier apt. The referring physician is requesting I see him sooner for pre-op please schedule him with me and cancel appt with fellow in April. Thanks, Chasidy documented in this encounter Plan of Treatment [...] [address] | | | | | | [place] | | | | | | [address] | | | | | | [phone] | | | | | | | | +--------+ + + + + | 09/27/ | Telephone-S | Liver Transplant | Vimal Crowe MD | | | 2019 | cheduled | | [address] | | | | | | [facility] [place], | | | | | | [place] [address] | | | | | | [phone] | | | | | | | | +--------+ + + + + | 10/03/ | Appointment | Cardiology | | | | 2019 | | | | | +--------+ + + + + | 10/03/ | Office | Cardiology | Cyril Samuel | | | 2019 | Visit | | MD Patricia [address] | | | | | | [address] | | | | | | [place] | | | | | | [address] | | | | | | [phone] | | | | | | | | +--------+ + + + + documented as of this encounter Visit Diagnoses Not on filedocumented in this encounter"
--- OUTSIDE RECORDS SUMMARY | ~2020-07-29 | XMS | Encounter Summary ---
Demographics + + + | Address | [address] | | | [place] [address] | + + + | Home Phone | | + + + | Preferred Language | Unknown | + + + | Marital Status | Single | + + + | Latter Day Affiliation | Unknown | + + + | Race | White | + + + | Ethnic Group | Not or | + + + Author + + + | Author | [facility] | | | and [place] | + + + | Organization | [facility] | | | and [...] Team Providers + +------+ + | Care City Director Name | Role | Phone | + +------+ + | Sharon David MD | PCP | | + +------+ + Reason for Visit + + + | Reason | Comments | + + + | Follow-up | | + + + Evaluate & Treat (Routine) + +--------+ + + + + | Status | Reason | Specialty | Diagnoses / | Referred By | Referred To | | | | | Procedures | Contact | Contact | + +--------+ + + + + | Authorized | | Cardiology | Diagnoses | David, | [place], | | | | | | Sharon Tong MD | MD Chen | | | | | Supraventric | [address] | [address] | | | | | ular | [address] | [place] | | | | | tachycardia | [place], | [place], [place] | | | | | ([facility]LY [facility]) | [place] [address] | [address] Phone: | | | | | Procedures | Phone: | [phone] | | | | | Consult | [phone] | Fax: | | | | | | Fax: | [phone] | | | | | | [phone] | | + +--------+ + + + + Encounter Details +--------+---------+ + + + | Date | Type | Department | Care Team | Description | +--------+---------+ + + + | 09/02/ | Office | [facility] | Chen Escamilla, | Pulmonary | | 2020 | Visit | CARDIOLOGY [place] | [address] | hypertension | | | | [address] | [place], [place] | (moderate/severe) | | | | [address] | [address] | (Primary Dx); | | | | [place] | | Paroxysmal A-fib | | | | [address] | | (HCC); SVT | | | | [phone] | | (supraventricular | | | | | | tachycardia) (HCC); | | | | | | Liver transplant | | | | | | status ([facility]) | +--------+---------+ + + + Social History [...] + documented in this encounter Progress Notes Chen Escamilla MD - 06/22/2020 9:45 AM PDTFormatting of this note might be different f rom the original. Date of visit: 06/22/2020 Primary Care Physician: Sharon David MD CHIEF COMPLAINT: Chief Complaint Patient presents with Follow-up HISTORY OF PRESENT ILLNESS: Steffen is 55 y.o. here for follow up visit. No records were received from [facility]. History of supraventricular tachycardia no further details were available. Complex past medical history status post liver transplantation secondary to liver cirrhosis , chronic kidney disease. Still follows up with hepatology at [facility]. No change in medications since prior evaluation, event monitor showed paroxysmal atrial fib rillation. Longest was more than 3 hours. Continues to be tired, symptoms started in October 2019, dyspnea on exertion, episodes of p alpitations. Had a fall and trauma to his LE. Denies any excessive coffee, stopped drinking 2 years ago. 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 Has been on metoprolol and amiodarone. Also has a plush cutter he sees in [facility], as well secondary to the COVID-19 pandemic he has been unable to make any appointment. Past medical history, SH, FH, and medications were reviewed in the chart. Medications: Outpatient Encounter Medications as of 06/22/2020 Medication Sig Dispense Refill amiodarone (PACERONE) 200 mg tablet Take 200 mg by mouth Daily. aspirin 325 mg tablet Take 325 mg by mouth Daily. calcium-vitamin D (OYSTER SHELL CALCIUM/D) 500 mg-200 units per tablet Take 1 tablet by mouth Daily. fludrocortisone (FLORINEF) 0.1 mg tablet Take 0.1 mg by mouth Daily. [DISCONTINUED] glimepiride (AMARYL) 1 mg tablet Take 1 mg by mouth every morning (befor e breakfast). insulin aspart (NOVOLOG FLEXPEN) 100 units/mL injection pen Inject 10 Units under the s kin. insulin glargine (LANTUS) 100 units/mL injection (vial) Inject 10 Units under the skin nightly. isosorbide dinitrate (ISORDIL) 20 mg tablet Take 1 tablet by mouth 3 times daily. 90 ta blet 11 magnesium oxide 250 MG TABS Take 250 mg by mouth 2 times daily. metoprolol succinate (TOPROL-XL) 25 mg 24 hr tablet Take 25 mg by mouth Daily. [DISCONTINUED] mirtazapine (REMERON) 30 mg tablet Take 30 mg by mouth nightly. sodium zirconium cyclosilicate (LOKELMA) 10 g packet Take 10 g by mouth Twice a week. tacrolimus (PROGRAF) 1 mg capsule Take 3 mg by mouth 2 times daily. No facility-administered encounter medications on file as of 06/22/2020. Allergies Allergies Allergen Reactions Doxycycline Hives REVIEW [...] shoulder pain previous right shoulder d isplacement. Fall and injury LE. Skin: Negative for rash. Neurological: Negative for dizziness. No numbness. No recent falls. No slurred speech. Hematological: No significant bruising. Psychiatric/Behavioral: No depression or anxiety. PHYSICAL EXAM Vital Signs: BP 118/68 | Pulse 64 | Ht 1.803 m (5' 11") | Wt 90.7 kg (200 lb) | SpO2 99% | BMI 27.8 9 kg/m GENERAL APPEARANCE: Alert, oriented, cooperative, no [...] No evidence of wall motion normality was reported, normal LV function. Last Cath: Last US carotid: Event Monitor 04/28/2020 1 month event monitor. Average heart rate 69 bpm. Rare PACs and PVCs. Multiple episodes of paroxysmal atrial fibrillation longest 3 hours and 48 minutes. ASSESSMENT: Patient is 55 y.o. with: 1. Cardiomyopathy, [place] heart classification class III, stage C. 2. States post liver transplant on tacrolimus. 3. Chronic kidney disease stage III. 4. Essential hypertension. 5. Paroxysmal atrial fibrillation, CHADSVASc score of 2. History of supraventricular tachyc ardia, no further details available on amiodarone that was prescribed by [facility] cardiology no anticoagulation. 6. Thrombocytopenia. 7. Moderate pulmonary hypertension. 8. Right bundle branch block. Plan: Complex past medical history and presentation. Available to review stress echo from July 2019 that showed normal heart function. Most recent echocardiogram showed moderately impaired systolic function. Still euvolumic. No indication for diuresis. Medical management is limited due to advanced kidney disease, at this time will start patie nt on isosorbide dinitrate 20 mg 2-3 times a day as tolerated. Continue with metoprolol suc cinate 25 mg once a day. Cannot increase any dosages of metoprolol succinate at this time given his heart rate and p ressure. I did leave a message with transplant team at [facility] in regar d to starting anticoagulation and in regard to following up in the view of his systolic func tion. Cannot initiate angiotensin receptor inhibitors due to advanced kidney disease. Has been on amiodarone per cardiology team from [facility]. We will continue to follow-up with the patient closely. Thank you Dr. David for allowing me the chance to participate in the care of this patient. More than 50% of the time was spent coordinating care and counseling the patient. *This report has been prepared using a voice recognition system. The report was reviewed fo r accuracy, however, sound-alike word errors, addition and/or deletions may occur. If there is any question about this report please contact me. Chen Escamilla MD, MPH A M PDTdocumented in this encounter Plan of Treatment +--------+---------+ + + + | Date | Type | Specialty | Care Team | Description | +--------+---------+ + + + | 12/22/ | Office | Cardiology | Shannan Almanza | | | 2020 | Visit | | [address] | | | | | | [address] | | | | | | [place] [address] | | | | | | [phone] | | | | | | | | +--------+---------+ + + + documented as of this encounter Visit Diagnoses + + | Diagnosis | + + | Pulmonary hypertension (moderate/severe) - Primary Other chronic pulmonary heart | | diseases | + + | Paroxysmal A-fib (HCC) Atrial fibrillation | + + | SVT (supraventricular tachycardia) ([facility]) Other specified cardiac dysrhythmias | + + | Liver transplant status (HCC) | + + documented in this encounter
--- OUTSIDE RECORDS SUMMARY | ~2020-07-29 | XMS | Encounter Summary ---
Demographics + + + | Address | [address] | | | [place] [address] | + + + | Home Phone [...] [place] | | | | | [address] | | + + + + + Care Team Providers + +------+ + | Care It Administrator Name | Role | Phone | + +------+ + | Sharon David MD | PCP | | + +------+ + Encounter Details +--------+ + + + + | Date | Type | Department | Care Team | Description | +--------+ + + + + | 04/22/ | Procedure | Diagnostic Imaging | | | | 2019 | Pass | Services at [facility] | | | | | | [address] | | | | | | [place] | | | | | | [facility] | | | | | | [place], [place] | | | | | | [address] | | | | | | [phone] | | | +--------+ + + + [...] [place] | | | | | | [address] | | | | | | [phone] | | | | | | | | +--------+ + + + + | 09/27/ | Telephone-S | Liver Transplant | Vimal Crowe MD | | | 2019 | cheduled | | [address] | | | | | | [address], | | | | | | [place] [address] | | | | | | [phone] | | | | | | | [...] Rd | | | | | | [place] | | | | | | [address] | | | | | | [phone] | | | | | | | | +--------+ + + + + documented as of this encounter Visit Diagnoses Not on filedocumented in this encounter"
--- OUTSIDE RECORDS SUMMARY | ~2020-07-29 | XMS | Encounter Summary ---
Demographics + + + | Address | [address] | | | [place] [address] | + + + | Home Phone [...] [place] | | | | | [address] | | + + + + + Care Team Providers + +------+ + | Care Tar Leveler Name | Role | Phone | + +------+ + | Sharon David MD | PCP | | + +------+ + Encounter Details +--------+ + + + + | Date | Type | Department | Care Team | Description | +--------+ + + + + | 02/08/ | Abstract | Clinical | Vimal Crowe MD | | | 2019 | | Transplant Services | [address] | | | | | [address] | [address] [place], | | | | | [place], | [place] [address] | | | | | [place] [address] | [phone] | | | | | [phone] | | | +--------+ + + + [...] | | | | | | [place], [place] | | | | | | [address] | | | | | | [phone] | | | | | | | | +--------+ + + + + | 09/27/ | Telephone-S | Liver Transplant | Vimal Crowe MD | | | 2019 | [place] | | [address] | | | | | | [facility] [address] [place], | | | | | | [place] [address] | | | | | | [phone] | | | | | | | | +--------+ + + + + | 10/03/ | Appointment | Cardiology | | | | 2019 | | | | | +--------+ + + + + | 10/03/ | Office | Cardiology | Cyril Samuel | | | 2019 | Visit | Darren Gomez MD [address] | | | | | | [address] | | | | | | [place], [place] | | | | | | [address] | | | | | | [phone] | | | | | | | | +--------+ + + + + documented as of this encounter Procedures + +--------+ + + + | Procedure Name | Priori | Date/Time | Associated Diagnosis | Comments | | | ty | | | | + +--------+ + + + | LIVER TRANSPLANT | Routin | 02/08/2020 | | Results for this | | POST PANEL (EXT | e | 8:41 AM | | procedure are in the | | RESULTS) | | PDT | | results section. | + +--------+ + + + documented in this encounter Results LIVER TRANSPLANT POST PANEL (EXT RESULTS) (02/08/2020 8:41 AM PDT) + + + + + [...] + + | BUN, PLASMA | 51 | mg/dL | [facility] | | | [...] + + + | PHOSPHORUS, | 4.8 | mg/dL | [facility] | | | [...] + | ALK PHOS | 60 | U/L | [facility] | | | [...] + + + + | HEMATOCRIT | 32.0 | % | [facility] | | | [...] + + + + | PLATELET | 91 | K/cu mm | [facility] | | | COUNT | | | LAB - | | | | | | [place] | | + + + + + + | TACROLIMUS | 5.5 | ng/mL | [facility] | | | [...] [address] | [place] | [phone] | | [place] | | | | + + + + + documented in this encounter Visit Diagnoses Not on filedocumented in this encounter"
--- OUTSIDE RECORDS SUMMARY | ~2020-07-29 | XMS | Encounter Summary ---
Demographics + + + | Address | [address] | | | [place] [address] | + + + | Home Phone [...] [place] | | | | | [address] | | + + + + + Care Team Providers + +------+ + | Care Asphalt Layer Name | Role | Phone | + +------+ + | Sharon David MD | PCP | | + +------+ + Encounter Details +--------+ + + + + | Date | Type | Department | Care Team | Description | +--------+ + + + + | 09/22/ | Pharmacy | Outpatient Retail | | | | 2019 | Visit | [facility] | | | | | | [address] | | | | | | [place], [place] | | | | | | [address] | | | | | | [phone] | | | +--------+ + + + [...] Rd | | | | | | [place], [place] | | | | | | [address] | | | | | | [phone] | | | | | | | | +--------+ + + + + | 09/27/ | Telephone-S | Liver Transplant | Vimal Crowe MD | | | 2019 | cheduled | | [address] | | | | | | [facility] [place], | | | | | | [place] [address] | | | | | | [phone] | | | | | | | [...] Rd | | | | | | [place], [place] | | | | | | [address] | | | | | | [phone] | | | | | | | | +--------+ + + + + documented as of this encounter Visit Diagnoses Not on filedocumented in this encounter"
--- OUTSIDE RECORDS SUMMARY | ~2020-07-29 | XMS | Encounter Summary ---
Demographics + + + | Address | [address] | | | [place] [address] | + + + | Home Phone [...] [place] | | | | | [address] | | + + + + + Care Team Providers + +------+ + | Care Special Events Fundraiser Name | Role | Phone | + +------+ + | Sharon David MD | PCP | | + +------+ + Encounter Details +--------+ + + + + | Date | Type | Department | Care Team | Description | +--------+ + + + + | 09/04/ | Pharmacy | Specialty Pharmacy | | | | 2019 | Visit | Services [address] | | | | | [address] | | | | | | [place], [place] | | | | | | [address] | | | | | | [phone] | | | +--------+ + + + [...] | | 2019 | [place] | | [address] | | | | | | [address] | | | | | | [place], [place] | | | | | | [address] | | | | | | [phone] | | | | | | | | +--------+ + + + + | 09/27/ | Telephone-S | Liver Transplant | Vimal Crowe MD | | | 2019 | cheduled | | [address] | | | | | | [facility] [place], | | | | | | [place] [address] | | | | | | [phone] | | | | | | | | +--------+ + + + + | 10/03/ | Appointment | Cardiology | | | | 2019 | | | | | +--------+ + + + + | 10/03/ | Office | Cardiology | Cyril Samuel | | | 2019 | Visit | | MD Patricia [address] | | | | | | [address] | | | | | | [place], [place] | | | | | | [address] | | | | | | [phone] | | | | | | | | +--------+ + + + + documented as of this encounter Visit Diagnoses Not on filedocumented in this encounter"
--- OUTSIDE RECORDS SUMMARY | ~2020-07-29 | XMS | Encounter Summary ---
Demographics + + + | Address | [address] | | | [place] [address] | + + + | Home Phone [...] [place] | | | | | [address] | | + + + + + Care Team Providers + +------+ + | Care Qa Consultant Name | Role | Phone | + +------+ + | Sharon David MD | PCP | | + +------+ + Encounter Details +--------+ + + + + | Date | Type | Department | Care Team | Description | +--------+ + + + + | 06/08/ | Telephone | Liver Transplant | Adam, | | | 2019 | | at [facility] [address] | | | | [address] | [address] | | | | | [address] | [place], [place] | | | | | [place], [place] | [address] | | | | | [address] | [phone] | | | | | [phone] | | | +--------+ + + + [...] Telephone Encounter - Amaris Medina LCSW - 06/08/2019 9:11 AM PDTLiver Transplant Re commendations Follow-up: Continue to engage in substance abuse relapse prevention. JACOBY spoke with pt's substance use counselor, Karolyn Xie from [facility] [employer] [facility] today ([phone]). Karolyn confirmed that pt continues to engage in weekly counseling with her focusing on relapse prevention and building coping skills. He also provides UA's, which have all been negative. Their next appointment is set for tomorrow 06/09/2019. Recommendation status from a psychosocial perspective: Complete Plan: -COILED COIL INSPECTOR left voice message from pt's sister Doreen to provide an update per her request. Invit ed her to call back to discuss further. Direct contact information was provided. -Routing to accounts specialisttesting coordinator. WINIFRED Mckenzie LCSW Clinical Transplant Float Performance Test Architect Pager: [phone] signed by Amaris Medina LCSW at 06/08/2019 9:22 AM PDTdocu mented in this encounter Plan [...] Rd | | | | | | [place] | | | | | | [address] | | | | | | [phone] | | | | | | | | +--------+ + + + + | 09/27/ | Telephone-S | Liver Transplant | Vimal Crowe MD | | | 2019 | cheduled | | [address] | | | | | | [facility] [place], | | | | | | [place] [address] | | | | | | [phone] | | | | | | | | +--------+ + + + + | 10/03/ | Appointment | Cardiology | | | | 2019 | | | | | +--------+ + + + + | 10/03/ | Office | Cardiology | Cyril Samuel | | | 2019 | Visit | | MD Patricia [address] | | | | | | [address] | | | | | | [place] | | | | | | [address] | | | | | | [phone] | | | | | | | | +--------+ + + + + documented as of this encounter Visit Diagnoses Not on filedocumented in this encounter"
--- OUTSIDE RECORDS SUMMARY | ~2020-07-29 | XMS | Encounter Summary ---
Demographics + + + | Address | [address] | | | [place] [address] | + + + | Home Phone [...] [place] | | | | | [address] | | + + + + + Care Team Providers + +------+ + | Care Absorber Operator Name | Role | Phone | + +------+ + | Sharon David MD | PCP | | + +------+ + Encounter Details +--------+ + + + + | Date | Type | Department | Care Team | Description | +--------+ + + + + | 04/24/ | Telephone | Liver Transplant | Adam, | | | 2019 | | at [facility] [address] | [address] | | | | [address] | [address] | | | | | [address] | [place], [place] | | | | | [place], [place] | [address] | | | | | [address] | [phone] | | | | | [phone] | | | +--------+ + + + [...] Telephone Encounter - Amaris Medina LCSW - 04/24/2019 9:50 AM PDTErroneous encounter . WINIFRED Mckenzie LCSW Clinical Transplant Float Per Diem Physical Therapist Assistant Pager: [phone] signed by Amaris Medina LCSW at 04/24/2019 9:51 AM PDTdocu mented in this encounter Plan of Treatment +--------+ + + + + | Date | Type | Specialty | Care Team | Description | +--------+ + + + + | 08/08/ | Telephone-S | Nephrology | Angélica Chao, | | | 2019 | cheduled | | MD [address] | | | | | | [address] | | | | | | [place], [place] | | | | | | [address] | | | | | | [phone] | | | | | | | | +--------+ + + + + | 09/27/ | Telephone-S | Liver Transplant | Vimal Crowe MD | | | 2019 | cheduled | | [address] | | | | | | [address], | | | | | | [place] [address] | | | | | | [phone] | | | | | | | [...] Rd | | | | | | [place], [place] | | | | | | [address] | | | | | | [phone] | | | | | | | | +--------+ + + + + documented as of this encounter Visit Diagnoses Not on filedocumented in this encounter"
--- OUTSIDE RECORDS SUMMARY | ~2020-07-29 | XMS | Encounter Summary ---
Demographics + + + | Address | [address] | | | [place] [address] | + + + | Home Phone [...] [place] | | | | | [address] | | + + + + + Care Team Providers + +------+ + | Care Supervisor Film Processing Name | Role | Phone | + +------+ + | Sharon David MD | PCP | | + +------+ + Reason for Visit + + + | Reason | Comments | + + + | Liver Transplant | deedeexalate | | Follow Up | | + + + Encounter Details +--------+ + + + + | Date | Type | Department | Care Team | Description | +--------+ + + + + | 11/10/ | Supervisor Type Bar And Segment | Clinical | Una Anthony MD | | | 2020 | | Transplant Services | [address] | | | | | [address] | [place], | | | | | [place] | [place] [address] | | | | | [place] [address] | [phone] | | | | | [phone] | | | +--------+ + + + [...] Telephone Encounter - Judie Mota RN - 11/10/2019 2:01 PM PSTPotassium from yesterd ay lab draw elevated 5.5 per Pattie Ignacio PA-C two doses of kayexalate today. Called Donell he understands instructions and will pick up man medication today at 3 pm. documented in this encounter Plan of Treatment [...] Rd | | | | | | [place] | | | | | | [address] | | | | | | [phone] | | | | | | | | +--------+ + + + + | 09/27/ | Telephone-S | Liver Transplant | Vimal Crowe MD | | | 2019 | cheduled | | [address] | | | | | | [place] | | | | | | [place] [address] | | | | | | [phone] | | | | | | | [...] [place] | | | | | | [address] | | | | | | [phone] | | | | | | | | +--------+ + + + + documented as of this encounter Visit Diagnoses Not on filedocumented in this encounter"
--- OUTSIDE RECORDS SUMMARY | ~2020-07-29 | XMS | Encounter Summary ---
Demographics + + + | Address | [address] | | | [place] [address] | + + + | Home Phone [...] [place] | | | | | [address] | | + + + + + Care Team Providers + +------+ + | Care Fur Farmer Name | Role | Phone | + [...] | liver with | [address] | [facility] | | | | | ascites | [address] | [address] [place], | | | | | (HCC) | [place], [place] | [place] | | | | | Preoperative | [address] | [address] | | | | | examination | Phone: | Phone: | | | | | Internal | [phone] | [phone] | | | | | organ | Fax: | Fax: | | | | | deficiencies | [phone] | [phone] | | | | | Procedures | | | | | | | CONSULT TO | | | | | | | INFECTIOUS | | | | | | | DISEASE | | | +--------+--------+ + + + + Encounter Details +--------+---------+ + + + | Date | Type | Department | Care Team | Description | +--------+---------+ + + + | 09/25/ | Office | Liver Transplant | 3, Ltx | Liver replaced by | | 2018 | Visit | at [facility] [address] | [place], [place] | transplant (HCC) | | | | [address] | [address] | (Primary Dx) | | | | Physician's | | | | | | [place], 2nd floor | | | | | | [place], [place] | | | | | | [address] | | | | | | [phone] | | | +--------+---------+ + + + [...] + + + | Blood Pressure | 127/67 | 09/25/2019 10:07 AM | | | | | PST | | + + + + + | Pulse | 75 | 09/25/2019 10:07 AM | | | | | PST | | + + + + + | Temperature | 36.9 C (98.5 F) | 09/25/2019 10:07 AM | | | | | PST | | + + + + + | Respiratory Rate | 14 | 09/25/2019 10:07 AM | | | | | PST | | + + + + + | Oxygen Saturation | 97% | 09/25/2019 10:07 AM | | | | | PST | | + + + + + | Inhaled Oxygen | - | - | | | Concentration | | | | + + + + + | Weight | 89.4 kg (197 lb) | 09/25/2019 10:07 AM | | | | | PST | | + + + + + | Height | 180.3 cm (5' 11") | 09/25/2019 10:07 AM | | | | | PST | | + + + + + | Body Mass Index | 27.48 | 09/25/2019 10:07 AM | | | [...] encounter Progress Notes Pattie Ignacio PA-C - 09/25/2019 10:00 AM PSTFormatting of this note might [...] The dialysis catheter was removed on 09/15. He was started on lasix but his creatinine increased to above 2.0 so this was held. Since then he feels that t he edema has been stable without lasix. He is staying active and walking. Last week he was f eeling fatigued but feels it has improved since stopping seroquel. He has a good appetite an d is eating without nausea. He is having regular bowel movements and his pain is well contr olled. Current Outpatient Medications Medication Sig Alcohol Swabs [...] day Indications: type 2 diabetes mellitus Insulin Charlotte (Disposable) (COMFORT EZ PEN NEEDLES) 31 gauge x 5/16" miscellaneous (m [facility]) needle Use as directed for 5 [...] daily. Indications: liver trans plant rejection prevention tacrolimus 1 mg oral capsule Take 2 capsules by mouth two times daily. Indications: niels er transplant rejection prevention trimethoprim-sulfamethoxazole 80-400 mg oral tablet Take 1 tablet by mouth once daily. Indications: pneumonia prevention valGANciclovir 450 mg oral tablet Take 1 tablet by mouth once daily. Indications: viral infection prevention No current facility-administered medications for this visit. Physical: VITALS: BP 127/67 (BP Location: Right upper arm, Patient Position: Sitting) | Pulse 75 | Temp 36.9 C (98.5 F) (Oral) | Resp 14 | Ht 1.803 m (5' 11") | Wt 89.4 kg (197 lb) | SpO2 97% | BMI 27.48 kg/m | BSA 2.12 m GENERAL: Alert, no acute distress, well kempt. HEENT: no scleral icterus, no oral plaques or ulcers NECK: no lymphadenopathy CV: regular rate and rhythm, no murmurs RESP: normal work of breathing on room air, clear ABD: soft, non-tender, intact incision without drainage, ecchymosis is nearly resolved Ext: mild edema Neuro: oriented, normal mood, grossly non-focal Labs: Chemistries: Last 72 Hours (or 3 results): Recent Labs 09/24/19 0812 NA 139 K 5.1* CL 103 BICARB 32 BUN 26* CR 1.92* CA 8.8 MG 1.7 PO4 4.7 AST 16 ALT 23 TBILI 0.6 AP 60 ALB 4.0 TP 6.5 CBC with diff last 72 hours (or 3 results) Recent Labs 09/24/19 0812 WBC 3.48* HB 8.9* HCT 28.4* PLT 107* NEUTROPERC 71.8* LYMPHPERC 21.0 MONOPERC 4.0 BASOPERC 0.6 EOSPERC 2.3 Lab Results Component Value Date FK506 5.9 09/24/2019 Assessment: Steffen Duran is a 54 year old male who continues to recover following liver transpl antation. His prograf level is within the target range. Plan: Immunosuppression:I personally participated in the immunosuppression and prophylaxis jaki moreno with with patient.Continue [id number] po bid, continue Azathoprine, and co ntinue Prednisone 5 mg daily Prophylaxis: Valcyte 450 mg po daily, Fluconazole 400mg every Saturday, daily switchin g to atovaquone. Endocrinology: - Continue [id number] in the AM, and 6units in PM - Continue Lisprosliding scale four times daily Cardiology: -[id number] of ASA daily - Amiodarone 200 mg daily Fluid status:stable; holding laisx Renal:HD is stopped; taking lasix as per nephrology recs. Planning to restart 20 mg Lasix daily today. Hyperkalemia controlled with kaexylate, will switch bactrim to Atovaquone Liver:stable graft funciton - no intervention necessary Wound:katiuska removed, healing well. Labs:2 times per week Activity:Continue to increase activity as tolerated. Goal is 30-45 minutes per day. Juan nue 10 pound lifting restriction and hernia precuations. Return to clinic: 2 weeks with surgeon Authored By: Pattie Ignacio PA-C [...] [address] | | | | | | [facility] | | | | | | [place], [place] | | | | | | [address] | | | | | | [phone] | | | | | | | | +--------+ + + + + | 09/27/ | Telephone-S | Liver Transplant | Vimal Crowe MD | | | 2019 | cheduled | | [address] | | | | | | [address], | | | | | | [place] [address] | | | | | | [phone] | | | | | | | | +--------+ + + + + | 10/03/ | Appointment | Cardiology | | | | 2019 | | | | | +--------+ + + + + | 10/03/ | Office | Cardiology | Cyril Samuel | | | 2019 | Visit | | MD Patricia [address] [facility] | | | | | | [address] | | | | | | [place], [place] | | | | | | [address] | | | | | | [phone] | | | | | | | | +--------+ + + + + documented as of this encounter Visit Diagnoses + + | Diagnosis | + + | Liver replaced by transplant (HCC) - Primary Liver replaced by transplant | + + documented in this encounter
--- OUTSIDE RECORDS SUMMARY | ~2020-07-29 | XMS | Encounter Summary ---
Demographics + + + | Address | [address] | | | [place] [address] | + + + | Home Phone [...] [place] | | | | | [address] | | + + + + + Care Team Providers + +------+ + | Care Senior Accounting Clerk Name | Role | Phone | + +------+ + | Sharon David MD | PCP | | + +------+ + Reason for Visit + +--------+ + | Reason | Onset | Comments | | | Date | | + +--------+ + | Care Coordination | 06/05/ | Metoprolol Jailyn; [facility] | | | 2019 | | + +--------+ + Encounter Details +--------+ + + + + | Date | Type | Department | Care Team | Description | +--------+ + + + + | 06/05/ | Telephone | Clinical | Elizabeth Garcia RN | Care Coordination | | 2019 | | Transplant Services | [address] | (Metoprolol Refill; | | | | [address] | [address] | [facility] | | | | [place] [address], | [place], [place] | Listing) | | | | [place] [address] | [address] | | | | | [phone] | | | +--------+ + + + [...] Telephone Encounter - Elizabeth Garcia RN - 06/05/2019 12:26 PM PDTReceived call from Donell Logan's sister requesting a refill of metoprolol, which was started by Internal Medicine team during hospitalization. Discussed that his PCP will take over the management of this medica tion, and I called Dr. David's office to request this, discharge note faxed also. Patient quintana s a follow-up with Dr. David scheduled 06/12/2019. Doreen will call Dr. David's office to requ est a refill of this medication. Doreen also had questions about patient's requirements prior to listing. Stated he is getti ng his last nicotine screening done next week, saw urologist at [facility] on 05/20/19, CT also don e at this time. Needs clearance from social workers regarding continued engagement in relaps e prevention, which Doreen states he is doing. Also needs to meet with registered midwife again fol [facility] cardiac MRI; a referral was placed but he has not been seen by cardiology since the c ardiac MRI was completed. I let Doreen know that his regular coordinator will be returning ne xt week, and she will assist in clarifying the remaining recommendations to complete prior t o listing. She agrees to this plan. Routing to liver transplant social workers for follow up . documented in this en counter Plan of Treatment +--------+ + + + + | Date | Type | Specialty | Care Team | Description | +--------+ + + + + | 08/08/ | Telephone-S | Nephrology | Angélica Chao, | | | 2019 | cherohini | | MD Danis [address] | | | | | | [address] | | | | | | [place], [place] | | | | | | [address] | | | | | | [phone] | | | | | | | | +--------+ + + + + | 09/27/ | Telephone-S | Liver Transplant | Vimal Crowe MD | | | 2019 | cherohini | | [address] | | | | | | [address], | | | | | | [place] [address] | | | | | | [phone] | | | | | | | | +--------+ + + + + | 10/03/ | Appointment | Cardiology | | | | 2019 | | | | | +--------+ + + + + | 10/03/ | Office | Cardiology | Cyril Samuel | | 2019 | Visit | | MD Patricia [address] [facility] | | | | | | [address] | | | | | | [place] | | | | | | [address] | | | | | | [phone] | | | | | | | | +--------+ + + + + documented as of this encounter Visit Diagnoses Not on filedocumented in this encounter"
--- OUTSIDE RECORDS SUMMARY | ~2020-07-29 | XMS | Encounter Summary ---
Demographics + + + | Address | [address] | | | [place] [address] | + + + | Home Phone [...] [place] | | | | | [address] | | + + + + + Care Team Providers + +------+ + | Care Teacher Aide Clerical Name | Role | Phone | + +------+ + | Sharon David MD | PCP | | + +------+ + Encounter Details +--------+ + + + + | Date | Type | Department | Care Team | Description | +--------+ + + + + | 05/25/ | Pharmacy | Pharmacy @ [facility] | | | | 2019 | Visit | [address] | | | | | | [address] Mailcode: | | | | | | [facility] | | | | | | and Healing, | | | | | | Building [address] | | | | | | [place], [place] | | | | | | [address] | | | +--------+ + + + [...] Rd | | | | | | [place], [place] | | | | | | [address] | | | | | | [phone] | | | | | | | | +--------+ + + + + | 09/27/ | Telephone-S | Liver Transplant | Vimal Crowe MD | | | 2019 | cheduled | | [address] | | | | | | [facility] [address] [place], | | | | | | [place] [address] | | | | | | [phone] | | | | | | | [...] Rd | | | | | | [place] | | | | | | [address] | | | | | | [phone] | | | | | | | | +--------+ + + + + documented as of this encounter Visit Diagnoses Not on filedocumented in this encounter"
--- OUTSIDE RECORDS SUMMARY | ~2020-07-29 | XMS | Encounter Summary ---
Demographics + + + | Address | [address] | | | [place] [address] | + + + | Home Phone [...] [place] | | | | | [address] | | + + + + + Care Team Providers + +------+ + | Care Nail Setter Name | Role | Phone | + +------+ + | Sharon David MD | PCP | | + +------+ + Encounter Details +--------+ + + + + | Date | Type | Department | Care Team | Description | +--------+ + + + + | 06/29/ | Pharmacy | [facility] | | | | 2020 | Visit | [address] | | | | | | [address] | | | | | | [place] [address] | | | | | | [phone] | | | +--------+ + + + [...] Rd | | | | | | [place], [place] | | | | | | [address] | | | | | | [phone] | | | | | | | | +--------+ + + + + | 09/27/ | Telephone-S | Liver Transplant | Vimal Crowe MD | | | 2019 | cheduled | | [address] | | | | | | [address], | | | | | | [place] [address] | | | | | | [phone] | | | | | | | [...] Rd | | | | | | [place] | | | | | | [address] | | | | | | [phone] | | | | | | | | +--------+ + + + + documented as of this encounter Visit Diagnoses Not on filedocumented in this encounter"
--- OUTSIDE RECORDS SUMMARY | ~2020-07-29 | XMS | Encounter Summary ---
Demographics + + + | Address | [address] | | | [place] [address] [...] [place] | | | | | [address] | | + + + + + Care Team Providers + +------+ + | Care Auto Transmission Technician Name | Role | Phone | + +------+ + | Sharon David MD | PCP | | + +------+ + Reason for Visit + + + | Reason | Comments | + + + | Committee Review | | | Summary | | + + + Encounter Details +--------+ + + + + | Date | Type | Department | Care Team | Description | +--------+ + + + + | 04/28/ | Committee | Clinical | Porsche Perdomo, | Committee Review | | 2019 | Review | Transplant Services | RN [address] | Summary | | | | [address] | [address] | | | | | [place], | [place], [place] | | | | | [place] [address] | [address] | | | | | [phone] | | | +--------+ + + + [...] this encounter Miscellaneous Notes Committee Review - 04/28/2019 1:33 PM PDTFormatting of this note might be different from brandi james. Transplant Committee Review Summary Date: 04/28/2019 Patient Name: Steffen Duran : 1965 Age: 54 y.o. Blood Type: A Antibodies: Negative [place] Organ Disease: Acute Alcoholic Hepatitis Problem List: Patient Active Problem List Diagnosis Alcoholic cirrhosis of liver with ascites (HCC) Chronic kidney disease Hepatorenal syndrome (HCC) Abnormal echocardiogram Cirrhosis (HCC) CKD (chronic kidney disease) SVT (supraventricular tachycardia) (HCC) Paroxysmal A-fib (HCC) Chronic kidney disease, unspecified CKD stage Labs: Chemistry Panel: Lab Results Component Value Date NA 131 (L) 04/24/2019 K 4.6 04/24/2019 BUN 43 (H) 04/24/2019 CR 1.20 04/24/2019 EGFRAFRICAN >60 04/24/2019 EGFRNONAFR >60 04/24/2019 GLU 115 (H) 04/24/2019 AST 69 (H) 04/24/2019 AP 151 (H) 04/24/2019 TBILI 9.9 (H) 04/24/2019 TP 6.7 04/24/2019 ALB 2.5 (L) 04/24/2019 Hematology Panel: Lab Results Component Value Date WBC 6.57 04/24/2019 RBC 2.35 (L) 04/24/2019 HB 8.5 (L) 04/24/2019 HCT 23.5 (L) 04/24/2019 MCV 100.0 04/24/2019 MCHC 36.2 (H) 04/24/2019 RDW 54.6 (H) 04/24/2019 PLT 49 (L) 04/24/2019 NEUTROPERC 70.0 04/22/2019 LYMPHPERC 18.6 04/22/2019 MONOPERC 9.3 (H) 04/22/2019 BASOPERC 0.4 04/22/2019 NEUTROPHILCO 5.19 04/22/2019 MONOCYTECO 0.69 04/22/2019 EOSCO 0.09 04/22/2019 BASOPHILCO 0.03 04/22/2019 A1C <3.5 04/21/2019 INRPT 2.73 (H) 04/24/2019 APTT 105.6 (H) 04/24/2019 Serology Panel: Lab Results Component Value Date RPR Non Reactive 04/21/2019 CMVIGG >10.00 04/21/2019 CMVIGM 30.9 (H) 04/21/2019 EBVABIGG 162.0 (H) 04/21/2019 HIV Negative 04/23/2019 TOXOIGG <3.0 04/21/2019 HEPCAB Not Detected 04/21/2019 HEPBCORE Not Detected 04/21/2019 HEPB Not Detected 04/21/2019 HBSAG Not Detected 04/21/2019 PSA <0.06 04/21/2019 MEASLESIGGAB >300.0 04/21/2019 MUMPSIGGAB >300.0 04/21/2019 RUBELLAAB Immune 04/21/2019 Serology Panel: Lab Results Component Value Date AMPHETAMINES Negative 04/21/2019 BARBITURATE Negative 04/21/2019 BENZO Negative 04/21/2019 COCAINE Negative 04/21/2019 OPIATE Negative 04/21/2019 OXYCODONE Negative 04/21/2019 URNICOTINE 170 04/21/2019 MELD: 30 Liver Evaluation Workup: Status Date Comments Consults: Surgery Complete 04/21/2019 Dr. Farooq Weeks/GUMARO [employer] Sales Manager Complete 03/19/[address] [facility] Nutrition Completed 04/22/2019 Hoda Avalos, RD *Silver type MVI (no Fe); 1 times a day; Suggest to aim for 100 gm of protein/day. Suggest a protein supplement BID. If zinc level is low, suggest 110 mg ZnSO4 x 2-3 mo; re-check serum Zn and stop supplemen hillary Zn wh, en serum Zn normalizes If retinol level is low, suggest [place] A 89051 international units oral capsule (take 2 tab s): Take 92466 international units PO 3 times a week for 3 months. Re-check Vit A level if n ormal d/c the supplement. [place], [place] 63940 IU Vit D3 1x/wk x6-8 wks, followed by maintenance do se of at least 2000 IU Vit D3/day thereafter. Moderate risk for liver transplantation from a nutrition perspective. Social Work Completed 04/22/2019 Amaris Medina LCSW Pharmacy Complete 04/21/2019 Jamila Ayala. PharmD Psychology Multidisciplinary Tumor Conference Other 1 Other 2 HCC Screening Tests: Abdominal CT Abdominal MRI Complete 04/22/2019 [facility]: FINDINGS: Motion artifact on the majority of sequences limits evaluation. LIVER: Cirrhotic morphology. Diffuse signal loss is seen on T1 and T2-weighted images, most prominent along the hepatic veins. No definite focal liver lesion i, dentified. BILIARY: Multiple small stones layer dependently within the gallbladder. No evidence of acu te cholecystitis. PANCREAS: Atrophic pancreas with diffuse signal loss on T1 and T2-weighted images. SPLEEN: Stable splenomegaly measuring , up to 19.6 cm in craniocaudal dimension. ADRENALS: Unremarkable. KIDNEYS: Reversed cortical medullary differentiation bilaterally due to cortical hypointens ity on T1 and T2-weighted images. GI TRACT: Visualized portions are unremarkable. PERITONE, UM: No free air or fluid. LYMPH NODES: No lymphadenopathy. VESSELS: The main portal vein is patent and measures up to 15 mm at the jb hepatis. The SMV is patent and measures approximately 13 mm near the splenic confluence. Recanalized umbi lic, al vein with omental and gastric varices, similar to prior study. BONES AND SOFT TISSUES: Bilateral gynecomastia. IMPRESSION: 1. Cirrhosis with portal hypertension. No definite focal liver lesion. 2. Extensive signal loss on both T1 a, nd T2-weighted images in the liver, pancreas, and re nal cortices suggestive of iron deposition as can be seen with primary hemochromatosis. MRCP Abdominal US Ango/Chemoembolization Chest CT Nuclear Medicine Whole Body Bone Scan Other 1 Other 2 Cardiac Studies: EKG Complete 04/21/[address] [facility]: Ref Range & Units Value VENTRICULAR RATE bpm 160 ATRIAL RATE ms 160 P-R INTERVAL ms 215 P AXIS deg 47 QRS DURATION ms 109 QT ms 306 QTCB ms 499 R AXIS deg 8 T AXIS deg 86 ECG IMPRESSION Supraventricular tachycardia ECG, IMPRESSION Repolarization abnormality ECG IMPRESSION Prolonged QT interval - ABNORMAL ECG - Transthoracic Echo Complete 03/19/[address] [facility]: Final Impressions: 1. The left ventricular size is normal. 2. The LV function is normal. 3. Right ventricular size, thickness and function are normal. 4. The aortic valve is trileaflet and moderately calcified. 5. Mild aortic stenosis (, See comments below). 6. There are no prior exams available for comparison. Dobutamine Stress Echo Complete 04/21/[address] [facility]: Final Impressions: 1. At baseline left ventricular systolic function is normal. 2. There were no ischemic ECG changes during stress. There were frequent PAC during stress and two sustained runs of SVT during recovery. 3. At peak stress t, he LV function augments normally (See comments below). 4. Echo negative for ischemia. 5. Low risk dobutamine stress echo with > 85% age predicted maximal heart rate. Other 1 Complete 04/24/[address] [facility]: Summary ------- 1. Normal left ventricular systolic function and mildly increased size. 2. Normal right ventricular systolic functio and mildly increased size. 3. No significant valvular disease. 4. Evidence for myocardial i, tom overload with prognostic relevance. The T2* decay of the left ventriuclar myocardium is between 7.7-12.3 ms which is below 20 ms and consistent with iron deposition. Values above 20 ms are considered normal without evidence of myocardial iro n dep, osition. The T2* decay of the liver is between 1.76-3.1 ms which is below 6.3 ms and consistent with iron deposition. Values above 6.3 ms are considered normal without evidence of hepatic iron deposition. 5. Cirrhotic appearance of the liver with e, nlarged spleen suggestive of sequelae of jb l hypertension. Other 2 Other Tests: Chest X-Ray Complete 04/21/[address] [facility]: FINDINGS: Cardiomediastinal contours are unremarkable. The lungs are clear. No pulmonary edema or con solidation. There is no pleural effusion or pneumothorax. Moderate compression deformities n oted in the lower thoracic spine, age indetermi, amauri. IMPRESSION: Clear lungs. Compression deformities in the lower thoracic spine, most likely chronic, although age inde terminate. Spirometry (PFT w/ABG) Bone Densitometry Liver Biopsy Other 1 Other 2 Health Maintenance: Immunization HepA-HepB 04/06/2019, 03/03/2019 PCV13 04/06/2019 Tdap 07/24/2016 Dental Follow-up Carol Vargas DDS, seen as inpatient at [facility]: Diagnoses: Multiple edentulous spaces, broken/decayed/non-restorable teeth, requires treatm ent following liver transplant and optimized IRN and MELD. - ASA III - No amish abscesses or intraoral swell, ing noted. Patient does have generalized heavy pl aque and calculus. - Recommend extraction of teeth #4, 5, 14, 15, 18 and 20. - We are more than happy to take care of Steffen Duran in our clinic as outpatient f ollowing liver transplant and , optimization of labs including INR and MELD . - Recommend good oral hygiene: brushing teeth twice daily. - Recommend following up with general dentist for regular dental exams, cleanings and manjit nued comprehensive care. Plan: Dental decay , should be addressed following liver transplant and more optimized lab values . EGD & Path Complete 07/20/2018 [facility]: Impression: - Normal duodenal bulb, second portion of the duodenum and third portion of the duodenum. Biopsied. - Normal stomach. No evidence of gastric varices or other potential etiologie, s for chronic blood loss. - Normal esophagus. No evidence of esophageal varices or other potential etiologies for chronic blood loss Colonoscopy & Path Complete 07/20/2018 [facility]: Impression: - The entire examined colon is normal on direct and retroflexion views. - The examined portion of the ileum was normal. - No specimens collected. , Pap Smear Mammogram documented in this en counter Plan of Treatment +--------+ + + + + | Date | Type | Specialty | Care Team | Description | +--------+ + + + + | 08/08/ | Telephone-S | Nephrology | Angélica Chao, | | | 2019 | cheduled | | [address] | | | | | | [facility] | | | | | | [place], [place] | | | | | | [address] | | | | | | [phone] | | | | | | | | +--------+ + + + + | 09/27/ | Telephone-S | Liver Transplant | Vimal Crowe MD | | 2019 | cheduled | | [address] | | | | | | [place], | | | | | | [place] [address] | | | | | | [phone] | | | | | | | [address] | | | | | | [place] | | | | | | [address] | | | | | | [phone] | | | | | | | | +--------+ + + + + documented as of this encounter Visit Diagnoses Not on filedocumented in this encounter"
--- OUTSIDE RECORDS SUMMARY | ~2020-07-29 | XMS | Encounter Summary ---
Demographics + + + | Address | [address] | | | [place] [address] | + + + | Home Phone [...] [place] | | | | | [address] | | + + + + + Care Team Providers + +------+ + | Care Arson And Bomb Investigator Name | Role | Phone | + +------+ + | Sharon David MD | PCP | | + +------+ + Encounter Details +--------+--------+ + + + | Date | Type | Department | Care Team | Description | +--------+--------+ + + + | 10/09/ | Travel | | | | | [...] | | | | | | [place], [place] | | | | | | [address] | | | | | | [phone] | | | | | | | | +--------+ + + + + | 09/27/ | Telephone-S | Liver Transplant | Vimal Crowe MD | | | 2019 | [place] | | [address] | | | | | | [address], | | | | | | [place] [address] | | | | | | [phone] | | | | | | | [...] [place] | | | | | | [address] | | | | | | [phone] | | | | | | | | +--------+ + + + + documented as of this encounter Visit Diagnoses Not on filedocumented in this encounter"
--- OUTSIDE RECORDS SUMMARY | ~2020-07-29 | XMS | Encounter Summary ---
Demographics + + + | Address | [address] | | | [place] [address] | + + + | Home Phone [...] [place] | | | | | [address] | | + + + + + Care Team Providers + +------+ + | Care Irrigationist Designer Name | Role | Phone | + +------+ + | Sharon David MD | PCP | | + +------+ + Encounter Details +--------+ + + + + | Date | Type | Department | Care Team | Description | +--------+ + + + + | 09/04/ | Pharmacy | [facility] | | | | 2018 | Visit | [facility] | | | | | | [address] | | | | | | [place], [place] | | | | | | [address] | | | | | | [phone] | | | +--------+ + + + [...] [place] | | | | | | [address] | | | | | | [phone] | | | | | | | | +--------+ + + + + | 09/27/ | Telephone-S | Liver Transplant | Vimal Crowe MD | | | 2019 | cheduled | | [address] | | | | | | [facility] [place], | | | | | | [place] [address] | | | | | | [phone] | | | | | | | [...] [address] | | | | | | [place], [place] | | | | | | [address] | | | | | | [phone] | | | | | | | | +--------+ + + + + documented as of this encounter Visit Diagnoses Not on filedocumented in this encounter"
--- OUTSIDE RECORDS SUMMARY | ~2020-07-29 | XMS | Encounter Summary ---
Demographics + + + | Address | [address] | | | [place] [address] | + + + | Home Phone [...] [place] | | | | | [address] | | + + + + + Care Team Providers + +------+ + | Care Burr Machine Operator Name | Role | Phone | + +------+ + | Sharon David MD | PCP | | + +------+ + Encounter Details +--------+ + + + + | Date | Type | Department | Care Team | Description | +--------+ + + + + | 06/13/ | Pharmacy | [facility] | | | | 2020 | Visit | [address] | | | | | | [address] | | | | | | [place] [address] | | | | | | [phone] | | | +--------+ + + + [...] [place] | | | | | | [address] | | | | | | [phone] | | | | | | | | +--------+ + + + + | 09/27/ | Telephone-S | Liver Transplant | Vimal Crowe MD | | | 2019 | cheduled | | [address] | | | | | | [address], | | | | | | [place] [address] | | | | | | [phone] | | | | | | | [...] [address] | | | | | | [place] | | | | | | [address] | | | | | | [phone] | | | | | | | | +--------+ + + + + documented as of this encounter Visit Diagnoses Not on filedocumented in this encounter"
--- OUTSIDE RECORDS SUMMARY | ~2020-07-29 | XMS | Encounter Summary ---
Demographics + + + | Address | [address] | | | [place] [address] | + + + | Home Phone [...] [place] | | | | | [address] | | + + + + + Care Team Providers + +------+ + | Care Cement And Concrete Plant Worker Name | Role | Phone | + +------+ + | Sharon David MD | PCP | | + +------+ + Encounter Details +--------+ + + + + | Date | Type | Department | Care Team | Description | +--------+ + + + + | 06/22/ | Pharmacy | [facility] | | | | 2020 | Visit | [address] | [address] | | | | | | [place] [address] | | | | | | [phone] | | | +--------+ + + + [...] [place] | | | | | | [address] | | | | | | [phone] | | | | | | | | +--------+ + + + + | 09/27/ | Telephone-S | Liver Transplant | Vimal Crowe MD | | | 2019 | cheduled | | [address] | | | | | | [address], | | | | | | [place] [address] | | | | | | [phone] | | | | | | | [...] | | | | | | [place] | | | | | | [address] | | | | | | [phone] | | | | | | | | +--------+ + + + + documented as of this encounter Visit Diagnoses Not on filedocumented in this encounter"
--- OUTSIDE RECORDS SUMMARY | ~2020-07-29 | XMS | Encounter Summary ---
Demographics + + + | Address | [address] | | | [place] [address] | + + + | Home Phone [...] [place] | | | | | [address] | | + + + + + Care Team Providers + +------+ + | Care Copy Clerk Name | Role | Phone | [...] [address] | [address] [place], | | | | | [place], | [place] [address] | | | | | [place] [address] | [phone] | | | | | [phone] | | | +--------+--------+ + + + [...] Judie Mota RN - 07/18/2020 1:52 PM [id number] MMF BID per Dr. Andre bar. documented [...] [address] | | | | | | [place] | | | | | | [address] | | | | | | [phone] | | | | | | | | +--------+ + + + + | 09/27/ | Telephone-S | Liver Transplant | Vimal Crowe MD | | | 2019 | [place] | | [address] | | | | | | [place], | | | | | | [place] [address] | | | | | | [phone] | | | | | | | [...] [place] | | | | | | [address] | | | | | | [phone] | | | | | | | | +--------+ + + + + documented as of this encounter Visit Diagnoses Not on filedocumented in this encounter"
[~2020-07-29 09:52] MED LIST changes: +AMARYL1 MG PO; +AMIODARONE HCL200 MG PO; +ASPIRIN325 MG PO; +CELLCEPT250 MG PO; +FLUDROCORTISON0.1 MG PO; +LANTUS100 UNITS/ SUB-Q; +MAGNESIUM250 MG PO; +MAPAP500 MG PO; +MEPRON750 MG/5 M PO; +METOPROLOL TART25 MG PO; +MIRTAZAPINE30 MG PO; +OXYCODONE HCL5 MG PO; +PROGRAF1 MG PO; +ZARXIO300 MCG/0. SUB-Q
--- OUTSIDE RECORDS SUMMARY | 2020-07-29 09:58 | XMS ---
PreManage Notification: DOUG LAWSON Security Commercial Accountant Events No recent Security Events currently on file CRITERIA MET - History of Sepsis Dx CARE PROVIDERS [employer] [facility] Internal Medicine 11/30/2019-Current PHONE: [phone] Yoel has no Care Guidelines for this patient. Care History Medical/Surgical 11/30/2019 [facility] - Patient is currently established with [facility]. If patient is seen in the ED during business hours. Please contact [facility] at [facility]. Care Recommendation: If this patient has had 5 or more Emergency Department visits in the last 12 months.\T\nbsp; Patient will require education on the scope and purpose of the ED as an acute care provider not a Primary Care Provider and should not be utilized for chronic conditions.\T\nbsp; These are guidelines and the provider should exercise clinical judgment when providing care. E.D. VISIT COUNT (12 MO.) 1 [facility] 2 [facility] TOTAL 3 NOTE: Visits indicate total known visits. ED/UCC VISIT TRACKING (12 MO.) 07/29/2020 09:[address] [facility] [place] TYPE: Emergency COMPLAINT: - ABNORMAL LAB RESULTS 11/28/2019 12:[address] [facility] [place] TYPE: Emergency COMPLAINT: - BACK PAIN DIAGNOSES: - Type 2 diabetes mellitus without complications - Other fci (current) drug therapy - Allergy status to other antibiotic agents status - Muscle spasm of back 10/05/2019 09:37 [facility] TYPE: Emergency DIAGNOSES: 63318. referral 68630. Liver transplant status . Disorder involving the immune mechanism, unspecified . Other fatigue INPATIENT VISIT TRACKING (12 MO.) 10/12/2019 13:28 [facility] TYPE: Transplant DIAGNOSES: 48262. Liver tx failure . Unspecified severe protein-calorie malnutrition [email or web address]
[2020-07-29] MEDS ORDERED: ELIQUIS2.5 MG PO (12:04)
[2020-07-29] MEDS ORDERED: FLUDROCORTISON0.1 MG PO (12:05)
[2020-07-29] MEDS ORDERED: ISOSORBIDE DINI20 MG PO (12:06)
[2020-07-29] MEDS ORDERED: HYDRALAZINE HCL25 MG PO (12:06)
[2020-07-29] MEDS ORDERED: NOVOLOG FL100 UNIT/1 SUB-Q (12:08)
== END 2020-07-29 12:00 | disposition home or self-care (01) ==
LOC: ED 09:52
DX: E87.5 Hyperkalemia (principal); E11.22 Type 2 diabetes mellitus with diabetic chronic kidney disease; N18.9 Chronic kidney disease, unspecified; I48.91 Unspecified atrial fibrillation; Z88.1 Allergy status to other antibiotic agents; Z79.899 Other long term (current) drug therapy; Z79.4 Long term (current) use of insulin; Z79.82 Long term (current) use of aspirin
CPT/HCPCS: 80053; 83735; 83880; 85025; 99284

== ENCOUNTER 2021-05-02 12:03 | Emergency (ER) | payer MEDICARE, OTHER ==
[~2021-05-02] VITALS: Ht 180.3 cm; Wt 90.9 kg
[~2021-05-02 12:03] MED LIST changes: +ELIQUIS2.5 MG PO; +HYDRALAZINE HCL25 MG PO; +ISOSORBIDE DINI20 MG PO; +NOVOLOG FL100 UNIT/1 SUB-Q
--- NOTE | 2021-05-03 11:25 | EKG ---
[facility] [address] [place] [address] Signed Sinus tachycardia Right bundle branch block Left anterior fascicular block Bifascicular block Inferior infarct , age undetermined T wave abnormality, consider lateral ischemia Abnormal ECG When compared with ECG of 17-JAN-2018 14:25, (RBBB and left anterior fascicular block) is now present Inferior infarct is now present Confirmed by NÉSTOR DIOR DO ([id number]) on 05/03/2021 11:25:13 AM Electronically Signed By: NÉSTOR DIOR DO 05/03/21 1125 PATIENT NAME: DOUG LAWSON Electrocardiogram DATE OF : 65 PHYSICIAN: NÉSTOR DIOR DO REPORT #: [id number] REPORT IS CONFIDENTIAL AND NOT TO BE RELEASED WITHOUT AUTHORIZATION
== END 2021-05-02 19:23 | disposition short-term general hospital (02) ==
LOC: ED 12:03
DX: J18.9 Pneumonia, unspecified organism (principal); N17.9 Acute kidney failure, unspecified; E11.10 Type 2 diabetes mellitus with ketoacidosis without coma; Z94.4 Liver transplant status; E11.22 Type 2 diabetes mellitus with diabetic chronic kidney disease; N18.9 Chronic kidney disease, unspecified; I48.91 Unspecified atrial fibrillation; Z88.1 Allergy status to other antibiotic agents; Z79.899 Other long term (current) drug therapy; Z79.4 Long term (current) use of insulin; Z79.82 Long term (current) use of aspirin; Z20.822 Contact with and (suspected) exposure to COVID-19
CPT/HCPCS: 71045; 80048; 80053; 82010; 82800; 83605; 83735; 84484; 85025; 93005; 93010; 96365; 96367; 99285-25; J0456; J0696; J7030; J7060; J7121; U0003

== ENCOUNTER 2021-07-01 09:57 | Emergency (ER) | payer OTHER, MEDICARE ==
[~2021-07-01] VITALS: Ht 180.3 cm; Wt 89.0 kg
[2021-07-01] MEDS ORDERED: OXYCODONE HCL5 MG PO (12:02)
== END 2021-07-01 12:30 | disposition home or self-care (01) ==
LOC: ED 09:57
DX: S09.90XA Unspecified injury of head, initial encounter (principal); S82.832A Other fracture of upper and lower end of left fibula, initial encounter for closed fracture; S83.91XA Sprain of unspecified site of right knee, initial encounter; W01.198A Fall on same level from slipping, tripping and stumbling with subsequent striking against other object, initial encounter; E11.22 Type 2 diabetes mellitus with diabetic chronic kidney disease; N18.9 Chronic kidney disease, unspecified; I48.91 Unspecified atrial fibrillation; I47.1 Supraventricular tachycardia; Z88.1 Allergy status to other antibiotic agents; Z79.4 Long term (current) use of insulin; Z79.01 Long term (current) use of anticoagulants; Z79.899 Other long term (current) drug therapy
CPT/HCPCS: 70450; 73560; 73610; 80053; 81001; 85025; 99284-25

== ENCOUNTER 2022-08-21 10:42 | Emergency (ER) | payer MEDICARE, OTHER ==
[~2022-08-21] VITALS: Ht 180.3 cm; Wt 89.0 kg
== END 2022-08-21 12:20 | disposition home or self-care (01) ==
LOC: ED 10:42
DX: R55 Syncope and collapse (principal); E11.22 Type 2 diabetes mellitus with diabetic chronic kidney disease; N18.9 Chronic kidney disease, unspecified; I48.91 Unspecified atrial fibrillation; Z88.1 Allergy status to other antibiotic agents; Z79.4 Long term (current) use of insulin
CPT/HCPCS: 99284

== ENCOUNTER 2024-06-05 05:07 | Emergency (ER) | payer MEDICARE, OTHER ==
[~2024-06-05] VITALS: Ht 180.3 cm; Wt 97.5 kg
[2024-06-05] MEDS ORDERED: VELTASSA8.4 GM (05:22)
[2024-06-05] MEDS ORDERED: NOVOLIN 70100 UNIT/2 (05:22)
[2024-06-05] MEDS ORDERED: RAPAMUNE1 MG (05:23)
[2024-06-05] MEDS ORDERED: PENICILLIN V P500 MG PO (05:29)
[2024-06-05] MEDS ORDERED: PENICILLIN V POTASSIUM 500 MG HOME.PACK PO ONE (05:30)
[2024-06-05 05:39] VITALS: BP 184/97
== END 2024-06-05 05:41 | disposition home or self-care (01) ==
LOC: ED 05:07
DX: K02.9 Dental caries, unspecified (principal); E11.22 Type 2 diabetes mellitus with diabetic chronic kidney disease; N18.9 Chronic kidney disease, unspecified; I48.91 Unspecified atrial fibrillation; Z88.1 Allergy status to other antibiotic agents; Z79.4 Long term (current) use of insulin; Z79.01 Long term (current) use of anticoagulants; Z79.899 Other long term (current) drug therapy
CPT/HCPCS: 99282